=== PATIENT | male | born 1935 | race African-American/Black ===

== ENCOUNTER 2019-01-23 08:37 | Emergency (ER) | payer OTHER ==
--- OUTSIDE RECORDS SUMMARY | 2019-01-23 08:40 | XMS REPORT | Clinical Summary ---
:1935 Author Organization [facility] [employer] Address [address] [place] [address] Care Team Providers Name Role Phone Celena Marcson Primary Care Provider Allergies Active Allergy Reactions Severity Noted Date Comments Sulfamethoxazole-Trimethoprim 04/13/2017 Clopidogrel 04/13/2017 Sulfa (Sulfonamide Antibiotics) 04/13/2017 Medications Medication Sig Dispensed Refills Start Date End Date Status tamsulosin (FLOMAX) Take 0.4 mg by 0 Active 0.4 mg mouth daily. capsule,extended release 24hr allopurinol (ZYLOPRIM) Take 100 mg by 0 Active 100 MG tablet mouth daily. atorvastatin (LIPITOR) Take 40 mg by 0 Active 40 MG tablet mouth daily. losartan (COZAAR) 100 Take 100 mg by 0 Active MG tablet mouth daily. warfarin (COUMADIN) 5 Take 1 tablet 30 tablet 0 04/27/2017 04/27/2018 MG tablet (5mg) by mouth daily for 30 days. Active Problems Problem Noted Date Acute deep vein thrombosis (DVT) of both lower extremities 04/13/2017 Social History Tobacco Use Types Packs/Day Years Used Date Never Smoker Alcohol Use Drinks/Week oz/Week Comments No Sex Assigned at Date Recorded Not on file Job Start Date Occupation Industry Not on file Not on file Not on file Travel History Travel Start Travel End No recent travel history available. Last Filed Vital Signs Not on file Plan of Treatment Health Maintenance Due Date Last Done Comments SHINGLES VACCINES (#1) 1985 65+ PNEUMOCOCCAL VACCINE (1 of 2 - PCV13) 2000 INFLUENZA VACCINE 12/08/2018 Implants Implanted Type Area Iron Miner Blasting Device Shelf Model / Identifier Expiration Serial / Date Lot Catheter Stitcher Hand 8fr 75x4cm 16mm Alsen - [id number] Surgical N/A: BARD PERIPHERAL 07/07/2019 [id number] / Implanted: 04/22/2017 at [facility] (Quantity not on file) Implants; N/A VASCULAR / Expanders; [id number] Extenders; Surgical Wires Catheter Stitcher Hand 6.5fr 75x4cm 14mm Alsen - [id number] Surgical N/A: [facility] 06/06/2019 [id number] / Implanted: 04/22/2017 at [facility] (Quantity not on file) Implants; N/A VASCULAR / Expanders; [id number] Extenders; Surgical Wires Stent Endprths Trchobrncl Walstnt [id number] W/ Cath 75cm - [id number] Surgical N /A: [facility] 02/02/2019 [id number] / Implanted: 04/22/2017 at [facility] (Quantity not on file) Stents N/A INTERVENTION / VASCULAR RONALD [id number] Stent Endprths Trchobrncl Walstnt [id number] W/ Cath 75cm - [id number] Surgical N /A: [facility] 02/02/2019 [id number] / Implanted: 04/22/2017 at [facility] (Quantity not on file) Stents N/A INTERVENTION / VASCULAR RONALD [id number] Stent Endprths Trchobrncl Walstnt [id number] Metal - [id number] Surgical N/A: [facility] 01/27/2019 [id number] / Implanted: 04/22/2017 at [facility] (Quantity not on file) Stents N/A INTERVENTION / VASCULAR RONALD [id number] Stent Endprths Trchobrncl Walstnt [id number] Metal - [id number] Surgical N/A: [facility] 12/29/2018 [id number] / Implanted: 04/22/2017 at [facility] (Quantity not on file) Stents N/A INTERVENTION / VASCULAR RONALD [id number] Stent Endprths Trchobrncl Walstnt [id number] Metal - [id number] Surgical N/A: [place] 03/02/2019 [id number] / Implanted: 04/22/2017 at [facility] (Quantity not on file) Stents N/A [employer] NASIM / [id number] Results Not on fileafter 01/22/2018 Advance Directives For more information, please contact: [phone] Type Date Recorded Patient Mine Manager Explanation Advance Directives, Living Will and Medical Power of Director Chemistry
--- OUTSIDE RECORDS SUMMARY | 2019-01-23 09:57 | XMS REPORT | CCD ---
:1935 Author Organization [facility] Team Providers Name Role Phone Yancy Anders Jordyjarredkemi Consulting Provider [phone] [employer], Login Consulting Provider Unavailable Kassy Talamantes Consulting Provider Unavailable Natalia Yu Consulting Provider Joann Orozco Consulting Provider Unavailable Liza Landers Consulting Provider Conor Roy Referring Provider Evie Johns Consulting Provider Ismael Kat Consulting Provider Virgen Gutiérrez Consulting Provider [phone] Allergies, Adverse Reactions, Alerts Substance Reaction Status Bactrim hives?? Active NKDA ?? Active Problem List Condition Effective Dates Status Chest pain ?? Active Dizziness ?? Active Nausea ?? Active
--- OUTSIDE RECORDS SUMMARY | 2019-01-23 09:57 | XMS REPORT | CCD ---
:1935 Author Organization [facility] Team Providers Name Role Phone BriggsFlori tam Consulting Provider Unavailable ANCELMO Waite Consulting Provider Unavailable MICROBIOLOGY, ANGPROCESSSERVER Consulting Provider Unavailable Mary Kay Dennison Consulting Provider Unavailable Kimberly Magallanes Consulting Provider Lianna Abarca Consulting Provider Unavailable Coco Roque Consulting Provider Jesica Woods Consulting Provider Unavailable Haile Avilez Consulting Provider Unavailable Coco Pires Consulting Provider Unavailable Priscila Catalan Consulting Provider Unavailable Elton Beckett Consulting Provider [phone] Mariposa Graves Consulting Provider [phone] Saima Friedman Consulting Provider [phone] Carola Tejada Consulting Provider Unavailable Vidya Aguilar Consulting Provider Unavailable Kavita Morrison Consulting Provider Tiana Adam Consulting Provider Unavailable Juanita Reed Consulting Provider [phone] Coby Patel Consulting Provider Unavailable Hany Clark Consulting Provider ChartServer, Login Consulting Provider Unavailable Ana Camacho Consulting Provider Unavailable Abiodun Pickard Consulting Provider Unavailable Annette Katz Consulting Provider Monika Espinoza Consulting Provider Unavailable Manuela Steiner Consulting Provider Unavailable Jennifer Turcios Consulting Provider Unavailable Kassy Talamantes Consulting Provider Unavailable Diamond Gutierrez Consulting Provider Unavailable Sahara Albert Consulting Provider [phone] Joann Orozco Consulting Provider Unavailable Yamile Arellano Consulting Provider [phone] Liza Landers Consulting Provider Janet Lehman Consulting Provider Unavailable Kenneth Cox Consulting Provider Unavailable Evie Johns Consulting Provider Juanita Woods Consulting Provider Unavailable Annita Cotto Consulting Provider Miranda Keith Consulting Provider Unavailable Ismael Kat Consulting Provider SYSTEM, SYSTEM Consulting Provider Unavailable Josefina Wallace Olaitan Consulting Provider [phone] Bob Campos S Consulting Provider iDamond Ornelas Consulting Provider Unavailable Mindy Dawson Consulting Provider Unavailable Virgen Gutiérrez Consulting Provider [phone] Marilee Mar Consulting Provider Unavailable Boy Greenberg Consulting Provider Unavailable Julius Rider Consulting Provider Shahana Sorto Consulting Provider [phone] Abdon Forbes Consulting Provider Tamar Moscoso Consulting Provider [phone] Sophia Jones Consulting Provider XER Chandu Valdivia Consulting Provider [phone] Justyn Salcido Consulting Provider Unavailable Beka Tariq Consulting Provider Janine Kumari Consulting Provider [phone] Denise Handy Consulting Provider [id number] Danielle Rider Consulting Provider Unavailable Coco Dudley Consulting Provider Arnaldo Morrison Consulting Provider Vicky Mcmahon Consulting Provider Unavailable Leisa Veras Consulting Provider [phone] Lauryn Cox Consulting Provider [phone] Monie Rider Consulting Provider Unavailable Negra Cotto Consulting Provider Basia Giles Consulting Provider Unavailable Emili Gan Consulting Provider Vidya Ferreira Consulting Provider Hillary Andrea Consulting Provider Mario Mendez Consulting Provider Lyndsay Banks Consulting Provider [phone] Allergies, Adverse Reactions, Alerts Substance Reaction Status Bactrim hives?? Active NKDA ?? Active Problem List Condition Effective Dates Status Chest pain ?? Active Dizziness ?? Active Nausea ?? Active Medications Medication Instructions Start Date End Date Status aspirin 81 mg tablet, 1 tab, PO, Daily, 0 tab, 02/15/2011 ?? Ordered enteric coated Substitution Allowed, ECTAB Saline Flush 0.9% 5 ml, Route: IVP, Drug 02/14/2011 02/14/2011 Discontinued Form: INJ, PRN, PRN Line Flush, Start date: 02/14/11 18:21:00, Duration: 30 day, Stop date: 03/16/11 17:20:00 glyBURIDE 5 mg oral tablet 1 tab, PO, Daily, 30 02/15/2011 ?? Ordered tab, Substitution Allowed, TAB doxycycline hyclate 100 mg 1 cap, PO, BID, cap, 02/15/2011 02/17/2011 Discontinued oral capsule Substitution Allowed predniSONE 50 mg oral 1 tab, PO, BID, tab, 02/15/2011 02/25/2011 Ordered tablet Substitution Allowed, TAB gabapentin 600 mg oral 1 tab, PO, TID, 270 tab, 02/15/2011 ?? Ordered tablet Substitution Allowed Klor-Con M10 oral tablet, 1 tab, PO, Daily, tab, 02/15/2011 ?? Ordered extended release Substitution Allowed, ERTAB lisinopril 10 mg oral 1 tab, PO, BID, 30 tab, 02/15/2011 ?? Ordered tablet Substitution Allowed, TAB Lasix 40 mg oral tablet 1 tab, PO, Daily, 30 02/15/2011 ?? Ordered tab, Substitution Allowed, TAB Coreg 12.5 mg oral tablet 1 tab, PO, BID, 60 tab, 02/15/2011 ?? Ordered Substitution Allowed, TAB Zofran ODT 4 mg oral 4 mg, 1 tab, PO, Q8H, 02/15/2011 ?? Ordered tablet, disintegrating PRN, as needed for nausea/vomiting, Substitution Allowed, TAB Xanax 0.5 mg oral tablet 1 tab, PO, Daily, PRN, 02/15/2011 ?? Ordered 30 tab, Anxiety, Substitution Allowed Visipaque 48,000 mg, 150 mL, 02/16/2011 02/16/2011 Completed Route: IV, Drug form: INJ, ONCE, Start date: 02/16/11 9:05:00, Stop date: 02/16/11 9:05:00 predniSONE 50 mg, Route: PO, Drug 02/15/2011 02/15/2011 Canceled form: TAB, BID, Start date: 02/15/11 17:00:00, Duration: 30 day, Stop date: 03/17/11 9:00:00 potassium chloride 10 mEq, 1 tab, Route: 02/16/2011 02/17/2011 Discontinued PO, Drug form: ERTAB, Daily, Start date: 02/16/11 9:00:00, Duration: 30 day, Stop date: 03/17/11 9:00:00 glyBURIDE 5 mg, 1 tab, Route: PO, 02/16/2011 02/17/2011 Discontinued Drug form: TAB, Daily, Start date: 02/16/11 9:00:00, Duration: 30 day, Stop date: 03/17/11 9:00:00 gabapentin 600 mg oral 600 mg, 2 cap, Route: 02/15/2011 02/17/2011 Discontinued tablet PO, Drug form: CAP, TID, Start date: 02/15/11 13:00:00, Duration: 30 day, Stop date: 03/17/11 9:00:00 Lasix 40 mg oral tablet 40 mg, 2 tab, Route: PO, 02/16/2011 02/17/2011 Discontinued Drug form: TAB, Daily, Start date: 02/16/11 9:00:00, Duration: 30 day, Stop date: 03/17/11 9:00:00 aspirin 325 mg tablet 325 mg, 1 tab, Route: 02/14/2011 02/14/2011 Completed PO, Drug form: TAB, ONCE, Priority: STAT, Start date: 02/14/11 20:28:00, Stop date: 02/14/11 20:28:00 Avelox 400 mg oral tablet 400 mg, 1 tab, Route: 02/17/2011 02/17/2011 Discontinued PO, Drug form: TAB, [id number], Priority: NOW, Start date: 02/17/11 10:36:00, Duration: 30 day, Stop date: 03/18/11 10:36:00 morphine Sulfate 2 mg, 0.4 mL, Route: 02/15/2011 02/17/2011 Discontinued IVP, Drug form: INJ, Q3H, PRN Pain, Start date: 02/15/11 23:21:00, Duration: 30 day, Stop date: 03/17/11 23:20:00 hydrALAZINE 10 mg, 0.5 mL, Route: 02/16/2011 02/17/2011 Discontinued IVP, Drug form: INJ, Q4H, PRN Elevated BP, Start date: 02/16/11 11:43:00, Duration: 30 day, Stop date: 03/18/11 11:42:00 Lopressor 5 mg, 5 mL, Route: IVP, 02/16/2011 02/17/2011 Discontinued Drug form: INJ, Q6H, PRN Elevated BP, Start date: 02/16/11 11:43:00, Duration: 30 day, Stop date: 03/18/11 11:42:00 Vicodin 5/500 oral tablet 1 tab, Route: PO, Drug 02/14/2011 02/17/2011 Discontinued Form: TAB, Q4H, PRN Pain, Start date: 02/14/11 22:13:00, Duration: 30 day, Stop date: 03/16/11 22:12:00 Neurontin 600 mg, 2 cap, Route: 02/14/2011 02/15/2011 Discontinued PO, Drug form: CAP, Q8H, Start date: 02/14/11 23:40:00, Duration: 30 day, Stop date: 03/16/11 16:00:00 pantoprazole 40 mg, Route: IVP, Drug 02/15/2011 02/16/2011 Discontinued form: INJ, Daily, Start date: 02/15/11 9:00:00, Duration: 30 day, Stop date: 03/16/11 9:00:00 acetaminophen 650 mg, 2 tab, Route: 02/14/2011 02/17/2011 Discontinued PO, Drug form: TAB, Q4H, PRN Pain/Fever, Start date: 02/14/11 22:12:00, Duration: 30 day, Stop date: 03/16/11 22:11:00 guaifenesin 100 mg, 5 mL, Route: PO, 02/14/2011 02/17/2011 Discontinued Drug form: LIQ, Q4H, PRN Cough, Start date: 02/14/11 22:12:00, Duration: 30 day, Stop date: 03/16/11 22:11:00 ceftriaxone 1 gm, Route: IVPB, 02/14/2011 02/15/2011 Discontinued [id number], Start date: 02/14/11 23:00:00, Duration: 30 day, Stop date: 03/15/11 23:00:00 azithromycin 500 mg, Route: IVPB, 02/14/2011 02/16/2011 Discontinued [id number], Start date: 02/14/11 23:00:00, Duration: 30 day, Stop date: 03/15/11 23:00:00 Saline Flush 0.9% 5 ml, Route: IVP, Drug 02/14/2011 02/17/2011 Discontinued Form: INJ, PRN, PRN Line Flush, Start date: 02/14/11 21:35:00, Duration: 30 day, Stop date: 03/16/11 20:34:00 Saline Flush 0.9% 5 ml, Route: IVP, Drug 02/15/2011 02/17/2011 Discontinued Form: INJ, Q12H, Start date: 02/15/11 9:00:00, Duration: 30 day, Stop date: 03/16/11 21:00:00 nitroglycerin SL Tab 0.4 mg, 1 tab, Route: 02/14/2011 02/17/2011 Discontinued SL, Drug form: TAB, Q5Min, PRN Chest Pain, Start date: 02/14/11 21:35:00, Duration: 3 doses or times, Stop date: Limited # of times aspirin 81 mg tablet, 81 mg, 1 tab, Route: PO, 02/15/2011 02/16/2011 Discontinued enteric coated Drug form: ECTAB, Daily, Start date: 02/15/11 9:00:00, Duration: 30 day, Stop date: 03/16/11 9:00:00 Insulin (Novolog) Sliding 10 unit, 0.1 mL, Route: 02/14/2011 02/17/2011 Discontinued Scale - Low SUB-Q, Drug form: SOLN, Sliding Scale, PRN Blood Glucose Results, Start date: 02/14/11 22:08:00, Duration: 30 day, Stop date: 03/16/11 21:07:00 glucagon 1 mg, Route: IM, Drug 02/14/2011 02/17/2011 Discontinued form: PDR/INJ, PRN, PRN Blood Glucose Results, Start date: 02/14/11 22:08:00, Duration: 30 day, Stop date: 03/16/11 21:07:00 Dextrose 50% Syringe 25 gm, 50 ml, Route: 02/14/2011 02/17/2011 Discontinued IVP, Drug Form: INJ, PRN, PRN Blood Glucose Results, Start date: 02/14/11 22:08:00, Duration: 30 day, Stop date: 03/16/11 21:07:00 Insulin (Novolog) Sliding 3 unit, 0.03 mL, Route: 02/14/2011 02/17/2011 Discontinued Scale - Low SUB-Q, Drug form: SOLN, Sliding Scale, PRN Blood Glucose Results, Start date: 02/14/11 22:08:00, Duration: 30 day, Stop date: 03/16/11 21:07:00 Insulin (Novolog) Sliding 4 unit, 0.04 mL, Route: 02/14/2011 02/17/2011 Discontinued Scale - Low SUB-Q, Drug form: SOLN, Sliding Scale, PRN Blood Glucose Results, Start date: 02/14/11 22:08:00, Duration: 30 day, Stop date: 03/16/11 21:07:00 Insulin (Novolog) Sliding 5 unit, 0.05 mL, Route: 02/14/2011 02/17/2011 Discontinued Scale - Low SUB-Q, Drug form: SOLN, Sliding Scale, PRN Blood Glucose Results, Start date: 02/14/11 22:08:00, Duration: 30 day, Stop date: 03/16/11 21:07:00 Insulin (Novolog) Sliding 6 unit, 0.06 mL, Route: 02/14/2011 02/17/2011 Discontinued Scale - Low SUB-Q, Drug form: SOLN, Sliding Scale, PRN Blood Glucose Results, Start date: 02/14/11 22:08:00, Duration: 30 day, Stop date: 03/16/11 21:07:00 Insulin (Novolog) Sliding 8 unit, 0.08 mL, Route: 02/14/2011 02/17/2011 Discontinued Scale - Low SUB-Q, Drug form: SOLN, Sliding Scale, PRN Blood Glucose Results, Start date: 02/14/11 22:08:00, Duration: 30 day, Stop date: 03/16/11 21:07:00 Lovenox 40 mg, 0.4 mL, Route: 02/15/2011 02/17/2011 Discontinued SUB-Q, Drug form: INJ, Daily, Start date: 02/15/11 9:00:00, Duration: 30 day, Stop date: 03/16/11 9:00:00 aspirin 81 mg tablet, 81 mg, 1 tab, Route: PO, 02/15/2011 02/17/2011 Discontinued enteric coated Drug form: ECTAB, Daily, Start date: 02/15/11 9:00:00, Duration: 30 day, Stop date: 03/16/11 9:00:00 Avelox 400 mg oral tablet 400 mg, 1 tab, PO, 02/17/2011 02/24/2011 Ordered Daily, 7 tab, Substitution Allowed, TAB DuoNeb inhalation solution 3 ml, Route: INHALATION, 02/15/2011 02/17/2011 Discontinued Drug Form: SOLN, Q6H, Start date: 02/15/11 0:00:00, Duration: 30 day, Stop date: 03/16/11 18:00:00 predniSONE 40 mg, 2 tab, Route: PO, 02/15/2011 02/17/2011 Discontinued Drug form: TAB, Daily, Start date: 02/15/11 9:00:00, Stop date: 03/16/11 9:00:00 amLODipine 5 mg, 1 tab, Route: PO, 02/16/2011 02/17/2011 Discontinued Drug form: TAB, Daily, Priority: NOW, Start date: 02/16/11 21:04:00, Duration: 30 day, Stop date: 03/18/11 9:00:00 Neurontin 600 mg, 2 cap, Route: 02/14/2011 02/14/2011 Deleted PO, Drug form: CAP, Q8H, Priority: NOW, Start date: 02/14/11 22:06:00, Duration: 30 day, Stop date: 03/16/11 16:00:00 Zofran 4 mg, 1 tab, Route: PO, 02/14/2011 02/17/2011 Discontinued Drug form: TAB, Q8H, PRN Nausea, Start date: 02/14/11 22:05:00, Duration: 30 day, Stop date: 03/16/11 22:04:00 morphine Sulfate 4 mg, 0.8 mL, Route: IM, 02/16/2011 02/17/2011 Discontinued Drug form: INJ, Q6H, PRN Pain, Start date: 02/16/11 21:03:00, Duration: 30 day, Stop date: 03/18/11 21:02:00 lisinopril 10 mg, 2 tab, Route: PO, 02/15/2011 02/17/2011 Discontinued Drug form: TAB, BID, Start date: 02/15/11 9:00:00, Duration: 30 day, Stop date: 03/16/11 17:00:00 cefepime 1 gm, Route: IVPB, 02/15/2011 02/17/2011 Discontinued [id number], Start date: 02/15/11 11:00:00, Duration: 30 day, Stop date: 03/16/11 23:00:00 azithromycin 500 mg oral 500 mg, 2 tab, Route: 02/16/2011 02/17/2011 Discontinued tablet PO, Drug form: TAB, Daily, Start date: 02/16/11 23:00:00, Duration: 30 day, Stop date: 03/18/11 9:00:00 Xanax 0.5 mg oral tablet 0.5 mg, 1 tab, Route: 02/14/2011 02/17/2011 Discontinued PO, Drug form: TAB, Bedtime, Priority: NOW, Start date: 02/14/11 22:04:00, Duration: 30 day, Stop date: 03/16/11 21:00:00 Coreg 6.25 mg, 2 tab, Route: 02/14/2011 02/17/2011 Discontinued PO, Drug form: TAB, Q12H, Priority: NOW, Start date: 02/14/11 22:04:00, Stop date: 03/16/11 21:00:00 ondansetron 4 mg, 2 mL, Route: IVP, 02/14/2011 02/14/2011 Completed Drug form: INJ, ONCE, Priority: STAT, Start date: 02/14/11 19:31:00, Stop date: 02/14/11 19:31:00 morphine Sulfate 4 mg, 1 mL, Route: IVP, 02/14/2011 02/14/2011 Completed Drug form: INJ, ONCE, Priority: STAT, Start date: 02/14/11 19:30:00, Stop date: 02/14/11 19:30:00 Protonix 40 mg, 1 tab, Route: PO, 02/17/2011 02/17/2011 Discontinued Drug form: ECTAB, Before Breakfast, Start date: 02/17/11 7:30:00, Duration: 30 day, Stop date: 03/18/11 7:30:00 Vital Signs Most recent to oldest 1 2 3 [Reference Range]: Height 193.04 cm 193.04 cm ?? (02/14/2011 21:25:00) ?? (02/14/2011 18:10:00) ?? Temperature Oral 97.8 DegF 97.7 DegF 98.5 DegF [96.4-99.1 DegF] (02/17/2011 14:45:00) ?? (02/17/2011 10:30:00) ?? (2010 07:13:00) ?? Systolic Blood Pressure 151 mmHg 157 mmHg 123 mmHg [90-140 mmHg] *HI* *HI* (02/17/2011 07:13:00) ?? (02/17/2011 14:45:00) ?? (02/17/2011 10:30:00) ?? Diastolic Blood Pressure 75 mmHg 80 mmHg 72 mmHg [60-90 mmHg] (02/17/2011 14:45:00) ?? (02/17/2011 10:30:00) ?? (02/17/2011 07:13:00) ?? Respiratory Rate [14-20 16 BRMIN 16 BRMIN 16 BRMIN BRMIN] (02/17/2011 14:45:00) ?? (02/17/2011 10:30:00) ?? (02/17/2011 07:13: 00) ?? Peripheral Pulse Rate 55 bpm 60 bpm 60 bpm [60-100 bpm] *LOW* (02/17/2011 10:30:00) ?? (02/17/2011 07:13:00) ?? (02/17/2011 14:45:00) ?? Weight 133.778 kg 134.091 kg ?? (02/14/2011 21:25:00) ?? (02/14/2011 18:10:00) ?? Results BACTERIAL - SEROLOGY Most recent to oldest [Reference Range]: 1 2 3 U S pneumo Ag [>Negative] Negative ? (02/15/2011 11:30:00) ?? MICRO MISC - SEROLOGY Most recent to oldest [Reference Range]: 1 2 3 U Legion Ag [>Negative] Negative 1 ? (02/15/2011 11:30:00) ?? 1Interpretive Data: This kit tests for Legionella pneumophila Serogroup 1 Antigen.BEDSIDE GLUCOSE TESTING Most recent to oldest 1 2 3 [Reference Range]: Gluc POC Lifscn [65-110 137 mg/dL 2 141 mg/dL 3 155 mg/dL 4 mg/dL] *HI* *HI* *HI* (02/17/2011 10:42:00) ?? (02/17/2011 07:42:00) ?? (02/16/2011 20:39:00) ?? Comment1 Notify RN/MD Notify RN/MD Notify RN/MD *NA* *NA* *NA* (02/17/2011 10:42:00) ?? (02/16/2011 20:39:00) ?? (02/16/2011 10:54:00) ?? 2Interpretive Data: Upper Reportable Limit: 200 mg/dL.3Interpretive Data: Upper Reportable Limit: 200 mg/dL.4Interpretive Data: Upper Reportable Limit: 200 mg/dL.VIRAL - SEROLOGY Most recent to oldest [Reference Range]: 1 2 3 Influ A [>Negative] Negative ? (02/15/2011 00:20:00) ?? Influ B [>Negative] Negative 5 ? (02/15/2011 00:20:00) ?? 5Interpretive Data: Due to the low sensitivity of this test a negative result does not exclude influenza virus infection. A diagnosis of influenza should be considered based on a patient's clinical presentation and empiric antiviral treatment should be considered, if indicated. If more conclusive testing is desired, follow-up confirmatory testing with either viral culture or PCR is warranted.CHEMISTRY Most recent to oldest 1 2 3 [Reference Range]: Sodium Lvl [135-145 mEq/L] 138 mEq/L 141 mEq/L 140 mEq/L (02/17/2011 04:15:00) ?? (02/16/2011 04:15:00) ?? (02/14/2011 19:24:00) ?? Potassium Lvl [3.5-5.1 4.5 mEq/L 3.6 mEq/L 3.9 mEq/L mEq/L] (02/17/2011 04:15:00) ?? (02/16/2011 04:15:00) ?? (02/14/2011 19:24: 00) ?? Chloride Lvl [95-109 mEq/L] 100 mEq/L 106 mEq/L 103 mEq/L (02/17/2011 04:15:00) ?? (02/16/2011 04:15:00) ?? (02/14/2011 19:24:00) ?? CO2 [24-32 mEq/L] 30 mEq/L 27 mEq/L 27 mEq/L (02/17/2011 04:15:00) ?? (02/16/2011 04:15:00) ?? (02/14/2011 19:24:00) ?? AGAP [10.0-20.0 mEq/L] 12.5 mEq/L 11.6 mEq/L 13.9 mEq/L (02/17/2011 04:15:00) ?? (02/16/2011 04:15:00) ?? (02/14/2011 19:24:00) ?? Creatinine Lvl [0.5-1.4 1.2 mg/dL 1.2 mg/dL 1.4 mg/dL mg/dL] (02/17/2011 04:15:00) ?? (02/16/2011 04:15:00) ?? (02/14/2011 19:24: 00) ?? BUN [7-22 mg/dL] 16 mg/dL 19 mg/dL 21 mg/dL (02/17/2011 04:15:00) ?? (02/16/2011 04:15:00) ?? (02/14/2011 19:24:00) ?? B/C Ratio [6-25] 13 16 15 (02/17/2011 04:15:00) ?? (02/16/2011 04:15:00) ?? (02/14/2011 19:24:00) ?? Glucose Lvl 167 mg/dL 6 93 mg/dL 7 134 mg/dL 8 *NA* *NA* *NA* (02/17/2011 04:15:00) ?? (02/16/2011 04:15:00) ?? (02/14/2011 19:24:00) ?? Total Protein [6.4-8.4 7.0 g/dL 6.4 g/dL 7.5 g/dL g/dL] (02/17/2011 04:15:00) ?? (02/16/2011 04:15:00) ?? (02/14/2011 19:24:00 ) ?? Albumin Lvl [3.5-5.0 g/dL] 2.9 g/dL 2.7 g/dL 3.3 g/dL *LOW* *LOW* *LOW* (02/17/2011 04:15:00) ?? (02/16/2011 04:15:00) ?? (02/14/2011 19:24:00) ?? Globulin [2.0-4.0 g/dL] 4.1 g/dL 3.7 g/dL 4.2 g/dL *HI* (02/16/2011 04:15:00) ?? *HI* (02/17/2011 04:15:00) ?? (02/14/2011 19:24:00) ?? A/G Ratio [0.7-1.6] 0.7 0.7 0.8 (02/17/2011 04:15:00) ?? (02/16/2011 04:15:00) ?? (02/14/2011 19:24:00) ?? Calcium Lvl [8.5-10.5 8.5 mg/dL 8.1 mg/dL 8.4 mg/dL mg/dL] (02/17/2011 04:15:00) ?? *LOW* *LOW* (02/16/2011 04:15:00) ?? (02/14/2011 19:24:00) ?? Phosphorus [2.5-4.5 mg/dL] 3.2 mg/dL 2.8 mg/dL ?? (02/17/2011 04:15:00) ?? (02/16/2011 04:15:00) ?? Magnesium Lvl [1.8-2.4 2.3 mg/dL 2.3 mg/dL ?? mg/dL] (02/17/2011 04:15:00) ?? (02/16/2011 04:15:00) ?? ALT [0-65 U/L] 26 U/L 19 U/L 16 U/L (02/17/2011 04:15:00) ?? (02/16/2011 04:15:00) ?? (02/14/2011 19:24:00) ?? AST [0-37 U/L] 10 U/L 5 U/L 5 U/L (02/17/2011 04:15:00) ?? (02/16/2011 04:15:00) ?? (02/14/2011 19:24:00) ?? Alk Phos [39-136 U/L] 47 U/L 38 U/L 40 U/L (02/17/2011 04:15:00) ?? *LOW* (02/14/2011 19:24:00) ?? (02/16/2011 04:15:00) ?? Bili Total [0.2-1.3 mg/dL] 0.5 mg/dL 0.4 mg/dL 0.5 mg/dL (02/17/2011 04:15:00) ?? (02/16/2011 04:15:00) ?? (02/14/2011 19:24:00) ?? Total CK [12-191 U/L] 32 U/L 37 U/L 48 U/L (02/15/2011 06:10:00) ?? (02/15/2011 00:07:00) ?? (02/14/2011 19:24:00) ?? CK MB [0.5-3.6 ng/mL] 0.9 ng/mL ? (02/15/2011 06:10:00) ?? Troponin-I [0.00-0.40 0.15 ng/mL 0.15 ng/mL 0.14 ng/mL ng/mL] (02/15/2011 06:10:00) ?? (02/15/2011 00:07:00) ?? (02/14/2011 19:24: 00) ?? BNP [<<=100 pg/mL] 304 pg/mL 9 ? *HI* (02/14/2011 18:50:00) ?? HIPOLITO [8-52 U/L] 24 U/L ? (02/17/2011 14:22:00) ?? 6Interpretive Data: Reference Ranges : 0 - 7 days : 41 - 90 mg/dL7 days - 150 yrs : 70 - 99 mg/dL (fasting), based on the clinical recommendations of the [place] [employer].7Interpretive Data: Reference Ranges : 0 - 7 days : 41 - 90 mg/dL7 days - 150 yrs : 70 - 99 mg/dL (fasting), based on the clinical recommendations of the [place] [employer].8Interpretive Data : Reference Ranges : 0 - 7 days : 41 - 90 mg/dL7 days - 150 yrs : 70 - 99 mg/dL (fasting), based on the clinical recommendations of the [place] [employer].9Interpretive Data: Elevated results are in line with increasing severity of congestive heart failure. Minor elevations between 100 and 300 may be seen with Myocardial Ischemia, Sodium retaining drugs, and compensated/ treated heart failure.HEMATOLOGY Most recent to oldest 1 2 3 [Reference Range]: WBC [3.7-10.4 K/CMM] 8.9 K/CMM 9.6 K/CMM 10.0 K/CMM (02/17/2011 04:15:00) ?? (02/16/2011 04:15:00) ?? (02/15/2011 06:10:00) ?? RBC [4.70-6.10 M/CMM] 4.65 M/CMM 4.23 M/CMM 4.25 M/CMM *LOW* *LOW* *LOW* (02/17/2011 04:15:00) ?? (02/16/2011 04:15:00) ?? (02/15/2011 06:10:00) ?? Hgb [14.0-18.0 g/dL] 14.1 g/dL 13.0 g/dL 12.9 g/dL (02/17/2011 04:15:00) ?? *LOW* *LOW* (02/16/2011 04:15:00) ?? (02/15/2011 06:10:00) ?? Hct [42.0-54.0 %] 42.5 % 38.5 % 38.9 % (02/17/2011 04:15:00) ?? *LOW* *LOW* (02/16/2011 04:15:00) ?? (02/15/2011 06:10:00) ?? MCV [80.0-94.0 fL] 91.4 fL 91.1 fL 91.5 fL (02/17/2011 04:15:00) ?? (02/16/2011 04:15:00) ?? (02/15/2011 06:10:00) ?? MCH [27.0-31.0 pg] 30.4 pg 30.7 pg 30.4 pg (02/17/2011 04:15:00) ?? (02/16/2011 04:15:00) ?? (02/15/2011 06:10:00) ?? MCHC [32.0-36.0 g/dL] 33.3 g/dL 33.6 g/dL 33.2 g/dL (02/17/2011 04:15:00) ?? (02/16/2011 04:15:00) ?? (02/15/2011 06:10:00) ?? RDW [11.5-14.5 %] 15.1 % 14.6 % 14.9 % *HI* *HI* *HI* (02/17/2011 04:15:00) ?? (02/16/2011 04:15:00) ?? (02/15/2011 06:10:00) ?? Platelet [133-450 K/CMM] 174 K/CMM 132 K/CMM 104 K/CMM (02/17/2011 04:15:00) ?? *LOW* *LOW* (02/16/2011 04:15:00) ?? (02/15/2011 06:10:00) ?? MPV [7.4-10.4 fL] 9.7 fL 9.8 fL 10.0 fL (02/17/2011 04:15:00) ?? (02/16/2011 04:15:00) ?? (02/15/2011 06:10:00) ?? Segs [45.0-75.0 %] 88.2 % 75.9 % 71.1 % *HI* *HI* (02/15/2011 06:10:00) ?? (02/17/2011 04:15:00) ?? (02/16/2011 04:15:) ?? Lymphocytes [20.0-40.0 %] 9.5 % 18.7 % 20.3 % *LOW* *LOW* (02/15/2011 06:10:00) ?? (02/17/2011 04:15:00) ?? (02/16/2011 04:15:) ?? Monocytes [2.0-12.0 %] 1.8 % 4.3 % 7.8 % *LOW* (02/16/2011 04:15:00) ?? (02/15/2011 06:10:00) ?? (02/17/2011:15:) ?? Eosinophils [0.0-4.0 %] 0.3 % 0.9 % 0.3 % (02/17/2011 04:15:00) ?? (02/16/2011:15:00) ?? (02/15/2011 06:10:00) ?? Basophils [0.0-1.0 %] 0.2 % 0.2 % 0.5 % (02/17/2011 04:15:00) ?? (02/16/2011 04:15:00) ?? (02/15/2011 06:10:) ?? Segs-Bands # [1.5-8.1 7.8 K/CMM 7.3 K/CMM 7.1 K/CMM K/CMM] (02/17/2011 04:15:00) ?? (02/16/2011 04:15:00) ?? (02/15/2011 06:10: 00) ?? Lymphocytes # [1.0-5.5 0.8 K/CMM 1.8 K/CMM 2.0 K/CMM K/CMM] *LOW* (02/16/2011 04:15:00) ?? (02/15/2011 06:10:00) ?? (02/17/2011 04:15:00) ?? Monocytes # [0.0-0.8 0.2 K/CMM 0.4 K/CMM 0.8 K/CMM K/CMM] (02/17/2011 04:15:00) ?? (02/16/2011 04:15:00) ?? (02/15/2011 06:10: 00) ?? Eosinophils # [0.0-0.5 0.0 K/CMM 0.1 K/CMM 0.0 K/CMM K/CMM] (02/17/2011 04:15:00) ?? (02/16/2011 04:15:00) ?? (02/15/2011 06:10: 00) ?? Basophils # [0.0-0.2 0.0 K/CMM 0.0 K/CMM 0.0 K/CMM K/CMM] (02/17/2011 04:15:00) ?? (02/16/2011 04:15:00) ?? (02/15/2011 06:10: 00) ?? RBC Morph Normal ? (02/14/2011 18:50:00) ?? Plt Morph Normal ? (02/14/2011 18:50:00) ?? PT [12.0-14.7 seconds] 13.9 seconds 14.2 seconds ?? (02/16/2011 05:05:00) ?? (02/14/2011 18:50:00) ?? INR [0.85-1.17] 1.07 10 1.10 11 ?? (02/16/2011 05:05:00) ?? (02/14/2011 18:50:00) ?? D-Dimer 0.58 ug/mL FEU 12 ? *NA* (02/14/2011 18:50:00) ?? PTT [22.9-35.8 seconds] 28.8 seconds 13 22.7 seconds 14 ?? (02/16/2011 05:05:00) ?? *LOW* (02/14/2011 18:50:00) ?? 10Interpretive Data: RECOMMENDED RANGES FOR PROTIME INR: 2.0-3.0 for most medical and surgical thromboembolic states. 2.5-3.5 for artificial heart valves and recurrent embolism.INR SHOULD BE USED ONLY FOR PATIENTS ON STABLE ANTICOAGULANT THERAPY.11Interpretive Data: RECOMMENDED RANGES FOR PROTIME INR: 2.0-3.0 for most medical and surgical thromboembolic states. 2.5-3.5 for artificial heart valves and recurrent embolism.INR SHOULD BE USED ONLY FOR PATIENTS ON STABLE ANTICOAGULANT THERAPY.12Interpretive Data: In DIC, quantitative D-Dimer is generally greater than 0.66 ug/mL FEU. Values ofquantitative D-Dimer less than 0.40 ug/mL FEU have been reported to be associated with a low probability of deep vein thrombosis/pulmonary embolism. This test alone should not be used to rule out DVT/PE.13Interpretive Data: Heparin Therapeutic Range: 57 - 92 [id number] Data: Heparin Therapeutic Range: 57 - 92 SecondsIMMUNOLOGY Most recent to oldest [Reference Range]: 1 2 3 PAO [>Negative] Positive ? *ABN* (02/17/2011 14:22:00) ?? PAO Titer [>Negative] 1:40 ? *ABN* (02/17/2011 14:22:00) ?? PAO Interp Pattern appears Mixed Speckled and Nucleolar ? *NA* (02/17/2011 14:22:00) ?? Microbiology Reports PROCEDURE:Gram Stain STATUS: Auth (Verified) BODY SITE: ?? COLLECTED DATE/TIME: 02/14/2011 23:31:00 SOURCE: Sputum FREE TEXT SOURCE: ?? FINAL REPORTS Final ReportGram Stain Good Quality Specimen Less Than 25 Squamous Epithelial Cells/Lpf Occasional WBC's Seen Occasional Gram Positive Cocci Seen PROCEDURE:Culture: Respiratory w/Gram Stain STATUS: Auth (Verified) BODY SITE: ?? COLLECTED DATE/TIME: 02/14/2011 23:31:00 SOURCE: Sputum FREE TEXT SOURCE: ?? FINAL REPORTS Final ReportNormal Respiratory Elsa Isolated PRELIMINARY REPORTS Preliminary ReportHolding For Better Growth STAIN REPORTS Stain ReportGram Stain Performed By: [facility] PROCEDURE:Culture: Blood STATUS: In Progress BODY SITE: ?? COLLECTED DATE/TIME: 02/14/2011 23:15:00 SOURCE: Blood FREE TEXT SOURCE: ?? PRELIMINARY REPORTS Preliminary ReportNo Growth At 3 Days Preliminary ReportNo Growth At 1 Day Preliminary ReportNo Growth At 2 Days Preliminary ReportNo Growth; Holding PROCEDURE:Culture: Blood STATUS: In Progress BODY SITE: ?? COLLECTED DATE/TIME: 02/14/2011 23:10:00 SOURCE: Blood FREE TEXT SOURCE: ?? PRELIMINARY REPORTS Preliminary ReportNo Growth; Holding Preliminary ReportNo Growth At 3 Days Preliminary ReportNo Growth At 1 Day Preliminary ReportNo Growth At 2 Days
--- OUTSIDE RECORDS SUMMARY | 2019-01-23 09:58 | XMS REPORT | CCD ---
:1935 Author Organization [facility] Team Providers Name Role Phone Yury Anderson Consulting Provider Arnaldo Morrison Consulting Provider Allergies, Adverse Reactions, Alerts Substance Reaction Status Bactrim hives Active NKDA Canceled Problem List Condition Effective Dates Status AF - Atrial fibrillation Active Cardiac catheterization 04/28/2011 Active Chest pain Active Cough Active Dizziness Active Nausea Active Medications Medication Instructions Start Date End Date Status Lyrica 75 mg, 1 cap, Route: PO, 08/27/2011 08/28/2011 Discontinued Drug form: CAP, Daily, Start date: 08/27/11 9:00:00, Duration: 30 day, Stop date: 09/25/11 9:00:00 lisinopril 10 mg, 2 tab, Route: PO, 08/27/2011 08/26/2011 Canceled Drug form: TAB, BID, Start date: 08/27/11 9:00:00, Duration: 30 day, Stop date: 09/25/11 17:00:00 gabapentin 600 mg oral 600 mg, 2 cap, Route: PO, 08/27/2011 08/28/2011 Discontinued tablet Drug form: CAP, TID, Start date: 08/27/11 9:00:00, Duration: 30 day, Stop date: 09/25/11 17:00:00 Coreg 3.125 mg, 1 tab, Route: 08/27/2011 08/28/2011 Discontinued PO, Drug form: TAB, BID, Start date: 08/27/11 9:00:00, Stop date: 09/25/11 17:00:00 ALPRAZOLam 0.5 mg, 1 tab, Route: PO, 08/26/2011 08/28/2011 Discontinued Drug form: TAB, Daily, PRN as needed for anxiety, Start date: 08/26/11 19:36:00, Duration: 30 day, Stop date: 09/25/11 19:35:00 ipratropium 0.02% 0.5 mg, 2.5 mL, Route: 08/26/2011 08/28/2011 Discontinued inhalation solution NEB, Drug form: SOLN, Q4H, Start date: 08/26/11 20:00:00, Duration: 30 day, Stop date: 09/25/11 16:00:00 sotalol 80 mg oral tablet 80 mg, 1 tab, PO, BID, 08/26/2011 Ordered 180 tab, Substitution Allowed, TAB albuterol 0.083% 2.49 mg, 3 mL, Route: 08/26/2011 08/28/2011 Discontinued inhalation solution NEB, Drug form: SOLN, Q4H, Start date: 08/26/11 20:00:00, Duration: 30 day, Stop date: 09/25/11 16:00:00 Flagyl 500 mg, 100 mL, Route: 08/27/2011 08/28/2011 Discontinued IVPB, Drug form: INJ, Q8H, Start date: 08/27/11 16:00:00, Duration: 30 day, Stop date: 09/26/11 8:00:00 omeprazole 20 mg oral 20 mg, 1 cap, PO, Daily, 08/26/2011 Ordered delayed release capsule 30 cap, Substitution Allowed Cipro 400 mg, 200 mL, Route: 08/27/2011 08/28/2011 Discontinued IVPB, Drug form: INJ, Q12H, Start date: 08/27/11 21:00:00, Duration: 30 day, Stop date: 09/26/11 9:00:00 levofloxacin 750 mg, 150 mL, Route: 08/26/2011 08/27/2011 Discontinued IV, Drug form: SOLN, Q24H, Start date: 08/26/11 18:00:00, Duration: 30 day, Stop date: 09/24/11 18:00:00 cefepime 1 gm, Route: IV, Daily, 08/26/2011 08/27/2011 Discontinued Start date: 08/26/11 18:00:00, Duration: 30 day, Stop date: 09/24/11 18:00:00 Tylenol 650 mg, 2 tab, Route: PO, 08/26/2011 08/28/2011 Discontinued Drug form: TAB, Q4H, PRN Pain, Start date: 08/26/11 17:03:00, Duration: 30 day, Stop date: 09/25/11 17:02:00 morphine Sulfate 1 mg, 0.5 mL, Route: IV, 08/26/2011 08/28/2011 Discontinued Drug form: INJ, Q4H, PRN as needed for pain, Start date: 08/26/11 17:07:00, Duration: 30 day, Stop date: 09/25/11 17:06:00 metFORmin 500 mg oral 500 mg, 1 tab, PO, Daily, 08/26/2011 Ordered tablet 30 tab, Substitution Allowed Visipaque 32,000 mg, 100 mL, Route: 08/27/2011 08/27/2011 Ordered IVP, Drug form: INJ, ONCE, Start date: 08/27/11 8:33:00, Stop date: 08/27/11 8:33:00 Protonix 40 mg, 1 tab, Route: PO, 08/27/2011 08/28/2011 Discontinued Drug form: ECTAB, Daily, Start date: 08/27/11 9:00:00, Duration: 30 day, Stop date: 09/25/11 9:00:00 torsemide 10 mg oral 10 mg, 1 tab, PO, Daily, 08/26/2011 Ordered tablet 30 tab, Substitution Allowed, TAB insulin aspart 4 unit, 0.04 mL, Route: 08/26/2011 08/28/2011 Discontinued SUB-Q, Drug form: SOLN, Bedtime, PRN Blood Glucose Results, Start date: 08/26/11 19:38:00, Duration: 30 day, Stop date: 09/25/11 19:37:00 insulin aspart 3 unit, 0.03 mL, Route: 08/26/2011 08/28/2011 Discontinued SUB-Q, Drug form: SOLN, Bedtime, PRN Blood Glucose Results, Start date: 08/26/11 19:38:00, Duration: 30 day, Stop date: 09/25/11 19:37:00 insulin aspart 2 unit, 0.02 mL, Route: 08/26/2011 08/28/2011 Discontinued SUB-Q, Drug form: SOLN, Bedtime, PRN Blood Glucose Results, Start date: 08/26/11 19:38:00, Duration: 30 day, Stop date: 09/25/11 19:37:00 insulin aspart 1 unit, 0.01 mL, Route: 08/26/2011 08/28/2011 Discontinued SUB-Q, Drug form: SOLN, Bedtime, PRN Blood Glucose Results, Start date: 08/26/11 19:38:00, Duration: 30 day, Stop date: 09/25/11 19:37:00 Dextrose 50% Syringe 12.5 gm, 25 mL, Route: 08/26/2011 08/28/2011 Discontinued IVP, Drug Form: INJ, PRN, PRN Blood Glucose Results, Start date: 08/26/11 19:38:00, Duration: 30 day, Stop date: 09/25/11 19:37:00 glucagon 1 mg, Route: IM, Drug 08/26/2011 08/28/2011 Discontinued form: PDR/INJ, PRN, PRN Blood Glucose Results, Start date: 08/26/11 19:38:00, Duration: 30 day, Stop date: 09/25/11 19:37:00 Dextrose 50% Syringe 25 gm, 50 mL, Route: IVP, 08/26/2011 08/28/2011 Discontinued Drug Form: INJ, PRN, PRN Blood Glucose Results, Start date: 08/26/11 19:38:00, Duration: 30 day, Stop date: 09/25/11 19:37:00 Combivent inhalation 2 puff, INHALER, Daily, 08/26/2011 Ordered aerosol with adapter 14 gm, Substitution Allowed, Maintenance [place] 5/325 oral tablet 1 tab, PO, Q4-6H, PRN, 30 08/28/2011 Ordered tab, as needed for pain, Substitution Allowed, Maintenance BD Posiflush SF 15 mL, Route: IVP, Drug 08/26/2011 08/28/2011 Discontinued Form: INJ, PRN, PRN Line Flush, Start date: 08/26/11 17:34:00, Duration: 30 day, Stop date: 09/25/11 17:33:00 Jantoven 4 mg oral tablet 4 mg, 1 tab, PO, QPM, 30 08/26/2011 08/28/2011 Discontinued tab, Substitution Allowed, TAB Flagyl 500 mg oral tablet 500 mg, 1 tab, PO, Q8H, 08/28/2011 09/10/2011 Ordered 39 tab, Substitution Allowed, TAB Cipro 500 mg oral tablet 500 mg, 1 tab, PO, Q12H, 08/28/2011 09/10/2011 Ordered 26 tab, Substitution Allowed, TAB Lyrica 75 mg oral capsule 75 mg, 1 cap, PO, Daily, 08/26/2011 Ordered 90 cap, Substitution Allowed, CAP Protonix 40 mg oral 40 mg, 1 tab, PO, Daily, 08/28/2011 Ordered enteric coated tablet 30 tab, 1, 1, Substitution Allowed, ECTAB Coreg 3.125 mg oral 3.125 mg, 1 tab, PO, BID, 08/28/2011 Ordered tablet 60 tab, 1, 1, Substitution Allowed, TAB Restoril 15 mg, 1 cap, Route: PO, 08/26/2011 08/28/2011 Discontinued Drug form: CAP, Bedtime, PRN Sleep, Start date: 08/26/11 19:55:00, Duration: 30 day, Stop date: 09/25/11 19:54:00 Sodium Chloride 0.9% IV 1,000 mL, Rate: 70 ml/hr, 08/26/2011 08/28/2011 Discontinued 1,000 mL Infuse over: 14.3 hr, Route: IV, Dosing Weight 129.091 kg, Total Volume: 1,000, Start date: 08/26/11 16:59:00, Duration: 30 day, Stop date: 09/25/11 16:58:00 [place] 5/325 oral tablet 1 tab, Route: PO, Drug 08/26/2011 08/28/2011 Discontinued Form: TAB, Q4H, PRN Pain, Start date: 08/26/11 19:55:00, Duration: 30 day, Stop date: 09/25/11 19:54:00 sotalol 80 mg, 1 tab, Route: PO, 08/26/2011 08/28/2011 Discontinued Drug form: TAB, BID, Start date: 08/26/11 21:40:00, Duration: 30 day, Stop date: 09/25/11 17:00:00 Vital Signs Most recent to oldest 1 2 3 [Reference Range]: Height 193.04 cm (08/26/2011 16:30:00) Temperature Oral 97.7 DegF 97.9 DegF 98.1 DegF [96.4-99.1 DegF] (08/28/2011 07:00:00) (08/27/2011 23:00:00) (08/27/2011 15: 52:00) Systolic Blood Pressure 138 mmHg 117 mmHg 130 mmHg [90-140 mmHg] (08/28/2011 07:00:00) (08/27/2011 23:00:00) (08/27/2011 15:52: 00) Diastolic Blood Pressure 65 mmHg 55 mmHg 61 mmHg [60-90 mmHg] (08/28/2011 07:00:00) *LOW* (08/27/2011 15:52:00) (08/27/2011 23:00:00) Respiratory Rate [14-20 18 BRMIN 18 BRMIN 18 BRMIN BRMIN] (08/28/2011 07:00:00) (08/27/2011 23:00:00) (08/27/2011 15:52:00) Peripheral Pulse Rate 49 bpm 54 bpm 47 bpm [60-100 bpm] *LOW* *LOW* *LOW* (08/28/2011 07:00:00) (08/27/2011 23:00:00) (08/27/2011 15:52:00) Weight 129.091 kg (08/26/2011 16:30:00) Results BEDSIDE GLUCOSE TESTING Most recent to oldest 1 2 3 [Reference Range]: Gluc POC Lif[place]n [70-99 158 mg/dL 1 100 mg/dL 2 146 mg/dL 3 mg/dL] *HI* *HI* *HI* (08/28/2011 11:24:00) (08/28/2011 07:31:00) (08/27/2011 19:48:00) Comment1 Notify RN/MD Notify RN/MD Notify RN/MD *NA* *NA* *NA* (08/28/2011 11:24:00) (08/27/2011 19:48:00) (08/27/2011 16:26:00) 1Interpretive Data: Upper Reportable Limit: 200 mg/dL.2Interpretive Data: Upper Reportable Limit: 200 mg/dL.3Interpretive Data: Upper Reportable Limit: 200 mg/dL.CHEMISTRY Most recent to oldest 1 2 3 [Reference Range]: Sodium Lvl [135-145 mEq/L] 143 mEq/L 141 mEq/L 139 mEq/L (08/28/2011 04:26:00) (08/27/2011 04:20:00) (08/26/2011 20:25:00) Potassium Lvl [3.5-5.1 3.9 mEq/L 3.7 mEq/L 3.5 mEq/L mEq/L] (08/28/2011 04:26:00) (08/27/2011 04:20:00) (08/26/2011 20:25:00) Chloride Lvl [95-109 mEq/L] 105 mEq/L 103 mEq/L 102 mEq/L (08/28/2011 04:26:00) (08/27/2011 04:20:00) (08/26/2011 20:25:00) CO2 [24-32 mEq/L] 28 mEq/L 29 mEq/L 28 mEq/L (08/28/2011 04:26:00) (08/27/2011 04:20:00) (08/26/2011 20:25:00) AGAP [10.0-20.0 mEq/L] 13.9 mEq/L 12.7 mEq/L 12.5 mEq/L (08/28/2011 04:26:00) (08/27/2011 04:20:00) (08/26/2011 20:25:00) Creatinine Lvl [0.5-1.4 1.3 mg/dL 1.6 mg/dL 1.7 mg/dL mg/dL] (08/28/2011 04:26:00) *HI* *HI* (08/27/2011 04:20:00) (08/26/2011 20:25:00) BUN [7-22 mg/dL] 12 mg/dL 17 mg/dL 20 mg/dL (08/28/2011 04:26:00) (08/27/2011 04:20:00) (08/26/2011 20:25:00) B/C Ratio [6-25] 9 11 12 (08/28/2011 04:26:00) (08/27/2011 04:20:00) (08/26/2011 20:25:00) Glucose Lvl [70-99 mg/dL] 96 mg/dL 4 98 mg/dL 5 143 mg/dL 6 (08/28/2011 04:26:00) (08/27/2011 04:20:00) *HI* (08/26/2011 20:25:00) Total Protein [6.4-8.4 6.9 g/dL 6.9 g/dL 7.6 g/dL g/dL] (08/28/2011 04:26:00) (08/27/2011 04:20:00) (08/26/2011 20:25:00) Albumin Lvl [3.5-5.0 g/dL] 3.1 g/dL 3.1 g/dL 3.4 g/dL *LOW* *LOW* *LOW* (08/28/2011 04:26:00) (08/27/2011 04:20:00) (08/26/2011 20:25:00) Globulin [2.0-4.0 g/dL] 3.8 g/dL 3.8 g/dL 4.2 g/dL (08/28/2011 04:26:00) (08/27/2011 04:20:00) *HI* (08/26/2011 20:25:00) A/G Ratio [0.7-1.6] 0.8 0.8 0.8 (08/28/2011 04:26:00) (08/27/2011 04:20:00) (08/26/2011 20:25:00) Calcium Lvl [8.5-10.5 8.1 mg/dL 8.2 mg/dL 8.7 mg/dL mg/dL] *LOW* *LOW* (08/26/2011 20:25:00) (08/28/2011 04:26:00) (08/27/2011 04:20:00) Phosphorus [2.5-4.5 mg/dL] 3.1 mg/dL 2.5 mg/dL (08/27/2011 04:20:00) (08/26/2011 20:25:00) Magnesium Lvl [1.8-2.4 1.8 mg/dL 1.8 mg/dL 1.7 mg/dL mg/dL] (08/28/2011 04:26:00) (08/27/2011 04:20:00) *LOW* (08/26/2011 20:25:00) ALT [0-65 U/L] 12 U/L 13 U/L 14 U/L (08/28/2011 04:26:00) (08/27/2011 04:20:00) (08/26/2011 20:25:00) AST [0-37 U/L] 9 U/L 14 U/L 11 U/L (08/28/2011 04:26:00) (08/27/2011 04:20:00) (08/26/2011 20:25:00) Alk Phos [39-136 U/L] 36 U/L 37 U/L 38 U/L *LOW* *LOW* *LOW* (08/28/2011 04:26:00) (08/27/2011 04:20:00) (08/26/2011 20:25:00) Bili Total [0.2-1.3 mg/dL] 0.7 mg/dL 0.7 mg/dL 0.6 mg/dL (08/28/2011 04:26:00) (08/27/2011 04:20:00) (08/26/2011 20:25:00) CHD Risk [4.00-7.30] 3.93 *LOW* (08/27/2011 04:20:00) Chol [120-200 mg/dL] 110 mg/dL *LOW* (08/27/2011 04:20:00) Trig [0-200 mg/dL] 152 mg/dL (08/27/2011 04:20:00) HDL [>=35 mg/dL] 28 mg/dL *LOW* (08/27/2011 04:20:00) LDL [0-129 mg/dL] 52 mg/dL (08/27/2011 04:20:00) 4Interpretive Data: Adult reference range values reflect the clinical guidelinesof the [place] [employer].5Interpretive Data: Adult reference range values reflect the clinical guidelinesof the [place] [employer].6Interpretive Data: Adult reference range values reflect the clinical guidelinesof the [place] [employer].HEMATOLOGY Most recent to oldest 1 2 3 [Reference Range]: WBC [3.7-10.4 K/CMM] 6.0 K/CMM 6.4 K/CMM 7.3 K/CMM (08/28/2011 04:26:00) (08/27/2011 04:20:00) (08/26/2011 20:25:00) RBC [4.70-6.10 M/CMM] 3.81 M/CMM 3.80 M/CMM 3.95 M/CMM *LOW* *LOW* *LOW* (08/28/2011 04:26:00) (08/27/2011 04:20:00) (08/26/2011 20:25:00) Hgb [14.0-18.0 g/dL] 11.8 g/dL 11.5 g/dL 11.8 g/dL *LOW* *LOW* *LOW* (08/28/2011 04:26:00) (08/27/2011 14:57:00) (08/27/2011 04:20:00) Hct [42.0-54.0 %] 34.5 % 33.9 % 34.7 % *LOW* *LOW* *LOW* (08/28/2011 04:26:00) (08/27/2011 14:57:00) (08/27/2011 04:20:00) MCV [80.0-94.0 fL] 90.8 fL 91.3 fL 91.8 fL (08/28/2011 04:26:00) (08/27/2011 04:20:00) (08/26/2011 20:25:00) MCH [27.0-31.0 pg] 30.9 pg 31.1 pg 31.1 pg (08/28/2011 04:26:00) *HI* *HI* (08/27/2011 04:20:00) (08/26/2011 20:25:00) MCHC [32.0-36.0 g/dL] 34.1 g/dL 34.1 g/dL 33.8 g/dL (08/28/2011 04:26:00) (08/27/2011 04:20:00) (08/26/2011 20:25:00) RDW [11.5-14.5 %] 13.9 % 13.7 % 14.1 % (08/28/2011 04:26:00) (08/27/2011 04:20:00) (08/26/2011 20:25:00) Platelet [133-450 K/CMM] 60 K/CMM 55 K/CMM 59 K/CMM *LOW* *LOW* *LOW* (08/28/2011 04:26:00) (08/27/2011 04:20:00) (08/26/2011 20:25:00) MPV [7.4-10.4 fL] 9.0 fL 9.1 fL 9.3 fL (08/28/2011 04:26:00) (08/27/2011 04:20:00) (08/26/2011 20:25:00) Segs [45.0-75.0 %] 53.7 % 45.8 % 58.1 % (08/28/2011 04:26:00) (08/27/2011 04:20:00) (08/26/2011 20:25:00) Lymphocytes [20.0-40.0 %] 34.4 % 43.5 % 34.5 % (08/28/2011 04:26:00) *HI* (08/26/2011 20:25:00) (08/27/2011 04:20:00) Monocytes [2.0-12.0 %] 7.6 % 7.1 % 4.9 % (08/28/2011 04:26:00) (08/27/2011 04:20:00) (08/26/2011 20:25:00) Eosinophils [0.0-4.0 %] 3.9 % 3.3 % 2.0 % (08/28/2011 04:26:00) (08/27/2011 04:20:00) (08/26/2011 20:25:00) Basophils [0.0-1.0 %] 0.4 % 0.3 % 0.5 % (08/28/2011 04:26:00) (08/27/2011 04:20:00) (08/26/2011 20:25:00) Segs-Bands # [1.5-8.1 3.2 K/CMM 2.9 K/CMM 4.2 K/CMM K/CMM] (08/28/2011 04:26:00) (08/27/2011 04:20:00) (08/26/2011 20:25:00) Lymphocytes # [1.0-5.5 2.1 K/CMM 2.8 K/CMM 2.5 K/CMM K/CMM] (08/28/2011 04:26:00) (08/27/2011 04:20:00) (08/26/2011 20:25:00) Monocytes # [0.0-0.8 0.5 K/CMM 0.5 K/CMM 0.4 K/CMM K/CMM] (08/28/2011 04:26:00) (08/27/2011 04:20:00) (08/26/2011 20:25:00) Eosinophils # [0.0-0.5 0.2 K/CMM 0.2 K/CMM 0.1 K/CMM K/CMM] (08/28/2011 04:26:00) (08/27/2011 04:20:00) (08/26/2011 20:25:00) Basophils # [0.0-0.2 0.0 K/CMM 0.0 K/CMM 0.0 K/CMM K/CMM] (08/28/2011 04:26:00) (08/27/2011 04:20:00) (08/26/2011 20:25:00) RBC Morph Normal (08/26/2011 20:25:00) Anisocyte [None Seen] 1+ *ABN* (08/28/2011 04:26:00) Large Plt [None Seen] Slight Slight *ABN* *ABN* (08/28/2011 04:26:00) (08/26/2011 20:25:00) PT [12.0-14.7 seconds] 20.6 seconds 20.7 seconds 20.9 seconds *HI* *HI* *HI* (08/28/2011 04:26:00) (08/27/2011 04:20:00) (08/26/2011 20:25:00) INR [0.85-1.17] 1.78 7 1.79 8 1.82 9 *HI* *HI* *HI* (08/28/2011 04:26:00) (08/27/2011 04:20:00) (08/26/2011 20:25:00) PTT [22.9-35.8 seconds] 31.9 seconds 10 32.0 seconds 11 32.2 seconds 12 (08/28/2011 04:26:00) (08/27/2011 04:20:00) (08/26/2011 20:25:00) 7Interpretive Data: RECOMMENDED RANGES FOR PROTIME INR: 2.0-3.0 for most medical and surgical thromboembolic states. 2.5-3.5 for artificial heart valves and recurrent embolism.INR SHOULD BE USED ONLY FOR PATIENTS ON STABLE ANTICOAGULANT THERAPY.8Interpretive Data: RECOMMENDED RANGES FOR PROTIME INR: 2.0-3.0 for most medical and surgical thromboembolic states. 2.5-3.5 for artificial heart valves and recurrent embolism.INR SHOULD BE USED ONLY FOR PATIENTS ON STABLE ANTICOAGULANT THERAPY.9Interpretive Data: RECOMMENDED RANGES FOR PROTIME INR: 2.0-3.0 for most medical and surgical thromboembolic states. 2.5-3.5 for artificial heart valves and recurrent embolism.INR SHOULD BE USED ONLY FOR PATIENTS ON STABLE ANTICOAGULANT THERAPY.10Interpretive Data: Heparin Therapeutic Range: 57 - 92 [id number] Data: Heparin Therapeutic Range: 57 - 92 [id number] Data: Heparin Therapeutic Range: 57 - 92 Seconds
--- OUTSIDE RECORDS SUMMARY | 2019-01-23 09:58 | XMS REPORT | CCD ---
:1935 Author Organization [facility] Care Team Providers Name Role Phone Jennifer Farmerlesley Kelly Consulting Provider Allergies, Adverse Reactions, Alerts Substance Reaction Status Bactrim hives Active NKDA Canceled Problem List Condition Effective Dates Status AF - Atrial fibrillation Active Cardiac catheterization 04/28/2011 Active Chest pain Active Dizziness Active Nausea Active Medications Medication Instructions Start Date End Date Status Demadex 10 mg, 1 tab, Route: PO, 07/07/2011 07/07/2011 Discontinued Drug form: TAB, Daily, Start date: 07/07/11 9:00:00, Duration: 30 day, Stop date: 08/05/11 9:00:00 Glucophage 500 mg, 1 tab, Route: 07/07/2011 07/07/2011 Discontinued PO, Drug form: TAB, Daily, Start date: 07/07/11 9:00:00, Duration: 30 day, Stop date: 08/05/11 9:00:00 morphine Sulfate 4 mg, Route: IVP, ONCE, 07/05/2011 07/06/2011 Completed Priority: STAT, Start date: 07/05/11 22:23:00, Stop date: 07/05/11 22:23:00 Phenergan 25 mg, 1 tab, Route: PO, 07/06/2011 07/07/2011 Discontinued Drug form: TAB, Q12H, PRN Nausea, Start date: 07/06/11 13:30:00, Duration: 30 day, Stop date: 08/05/11 13:29:00 Coumadin 4.5 mg, 1.5 tab, Route: 07/06/2011 07/07/2011 Discontinued PO, Drug form: TAB, Q5PM, Start date: 07/06/11 17:00:00, Duration: 30 day, Stop date: 08/04/11 17:00:00 nitroglycerin 2% ointment 1 inch, Route: TOP, Drug 07/05/2011 07/05/2011 Completed Form: OINT, ONCE, STAT, Start date: 07/05/11 21:43:00, Stop date: 07/05/11 21:43:00 nitroglycerin 0.4 mg, 1 tab, Route: 07/05/2011 07/05/2011 Completed SL, Drug form: TAB, Q5Min, PRN Chest Pain, (Hold if SBP <=90 mmHg or if <=100mmHg with symptomatic dizziness), Start date: 07/05/11 21:43:00, Duration: 3 doses or times, Stop date: Limited # of times aspirin 81 mg tablet, 81 mg, 1 tab, Route: PO, 07/05/2011 07/05/2011 Completed chewable Drug form: CHEWTAB, ONCE, Priority: STAT, Start date: 07/05/11 21:43:00, Stop date: 07/05/11 21:43:00 Saline Flush 0.9% 5 ml, Route: IVP, Drug 07/05/2011 07/06/2011 Discontinued Form: INJ, PRN, PRN Line Flush, Start date: 07/05/11 21:43:00, Duration: 24 hr, Stop date: 07/06/11 21:42:00 Ackerman 3-6-9 1200 mg (own Ackerman 3-6-9 1200 mg (own 07/06/2011 07/07/2011 Discontinued med) med), 1,200 mg, Drug form: MISC, Route: PO, TID, 07/06/11 17:00:00, Duration: 30 day, Stop date: 08/05/11 13:00:00 Betapace 80 mg, 1 tab, Route: PO, 07/06/2011 07/07/2011 Discontinued Drug form: TAB, Q12H, Start date: 07/06/11 9:00:00, Duration: 30 day, Stop date: 08/04/11 21:00:00 Xanax 0.5 mg, 1 tab, Route: 07/06/2011 07/07/2011 Discontinued PO, Drug form: TAB, Bedtime, Start date: 07/06/11 21:00:00, Duration: 30 day, Stop date: 08/04/11 21:00:00 Protonix 40 mg, 1 tab, Route: PO, 07/06/2011 07/07/2011 Discontinued Drug form: ECTAB, Before Dinner, Start date: 07/06/11 16:30:00, Duration: 30 day, Stop date: 08/04/11 16:30:00 DiaBeta 2.5 mg, 1 tab, Route: 07/06/2011 07/07/2011 Discontinued PO, Drug form: TAB, TID, Start date: 07/06/11 9:00:00, Duration: 30 day, Stop date: 08/04/11 17:00:00 K-Dur 10 10 mEq, 1 tab, Route: 07/06/2011 07/07/2011 Discontinued PO, Drug form: ERTAB, Daily, Start date: 07/06/11 9:00:00, Duration: 30 day, Stop date: 08/04/11 9:00:00 Zaroxolyn 5 mg, 2 tab, Route: PO, 07/06/2011 07/06/2011 Discontinued Drug form: TAB, Daily, Start date: 07/06/11 9:00:00, Duration: 30 day, Stop date: 08/04/11 9:00:00 Lipitor 10 mg, 1 tab, Route: PO, 07/06/2011 07/07/2011 Discontinued Drug form: TAB, Bedtime, Start date: 07/06/11 21:00:00, Duration: 30 day, Stop date: 08/04/11 21:00:00 Sodium Chloride 0.9% IV 250 mL, Route: IVPB, 07/06/2011 07/07/2011 Discontinued PRN, Line Flush, Start date: 07/06/11 2:53:00, Duration: 30 day, Stop date: 08/05/11 3:52:00 BD Normal Saline Flush 10 mL, Route: IVP, Drug 07/06/2011 07/07/2011 Discontinued Form: INJ, PRN, PRN Line Flush, Start date: 07/06/11 2:53:00, Duration: 30 day, Stop date: 08/05/11 3:52:00 Astramorph PF 4 mg, 4 mL, Route: IVP, 07/06/2011 07/07/2011 Discontinued Drug form: INJ, Q2H, PRN Pain Score 7-10, Start date: 07/06/11 4:45:00, Duration: 30 day, Stop date: 08/05/11 4:44:00 Astramorph PF 2 mg, 2 mL, Route: IV, 07/06/2011 07/07/2011 Discontinued Drug form: INJ, Q2H, PRN Pain Score 4-6, Start date: 07/06/11 4:45:00, Duration: 30 day, Stop date: 08/05/11 4:44:00 acetaminophen-hydrocodone 1 tab, Route: PO, Drug 07/06/2011 07/07/2011 Discontinued 325 mg-5 mg oral tablet Form: TAB, Q4H, PRN Pain Score 1-5, Start date: 07/06/11 4:44:00, Duration: 30 day, Stop date: 08/05/11 4:43:00 acetaminophen-hydrocodone 2 tab, Route: PO, Drug 07/06/2011 07/07/2011 Discontinued 325 mg-5 mg oral tablet Form: TAB, Q4H, PRN Pain Score 6-10, Start date: 07/06/11 4:44:00, Duration: 30 day, Stop date: 08/05/11 4:43:00 nitroglycerin 2% topical 1 inch, Route: TOP, Drug 07/06/2011 07/06/2011 Discontinued ointment form: OINT, TID, Start date: 07/06/11 6:00:00, Duration: 30 day, Stop date: 08/04/11 18:00:00 Prinivil 10 mg, 1 tab, Route: PO, 07/06/2011 07/07/2011 Discontinued Drug form: TAB, Daily, Start date: 07/06/11 9:00:00, Duration: 30 day, Stop date: 08/04/11 9:00:00 Niaspan ER 500 mg oral 500 mg, 1 tab, PO, BID, 07/05/2011 Ordered tablet, extended release 60 tab, Substitution Allowed warfarin 3 mg oral tablet 3 mg, 1 tab, PO, Daily, 07/05/2011 Ordered 30 tab, Substitution Allowed, TAB ALPRAZOLam 0.5 mg, PO, PRN, PRN, 07/05/2011 Ordered anxiety, Substitution Allowed glucagon 1 mg, Route: IV, Drug 07/06/2011 07/07/2011 Discontinued form: PDR/INJ, PRN, PRN Blood Glucose Results, Start date: 07/06/11 4:41:00, Duration: 30 day, Stop date: 08/05/11 5:40:00 Dextrose 50% in Water IV 50 mL, Route: IVP, PRN, 07/06/2011 07/07/2011 Discontinued Blood Glucose Results, Start date: 07/06/11 4:41:00, Duration: 30 day, Stop date: 08/05/11 5:40:00 Dextrose 50% in Water IV 25 mL, Route: IVP, PRN, 07/06/2011 07/07/2011 Discontinued Blood Glucose Results, Start date: 07/06/11 4:41:00, Duration: 30 day, Stop date: 08/05/11 5:40:00 NovoLog FlexPen 10 unit, 0.1 mL, Route: 07/06/2011 07/07/2011 Discontinued SUB-Q, Drug form: SOLN, Sliding Scale, PRN Blood Glucose Results, Start date: 07/06/11 4:41:00, Duration: 30 day, Stop date: 08/05/11 5:40:00 NovoLog FlexPen 6 unit, 0.06 mL, Route: 07/06/2011 07/07/2011 Discontinued SUB-Q, Drug form: SOLN, Sliding Scale, PRN Blood Glucose Results, Start date: 07/06/11 4:41:00, Duration: 30 day, Stop date: 08/05/11 5:40:00 NovoLog FlexPen 8 unit, 0.08 mL, Route: 07/06/2011 07/07/2011 Discontinued SUB-Q, Drug form: SOLN, Sliding Scale, PRN Blood Glucose Results, Start date: 07/06/11 4:41:00, Duration: 30 day, Stop date: 08/05/11 5:40:00 NovoLog FlexPen 4 unit, 0.04 mL, Route: 07/06/2011 07/07/2011 Discontinued SUB-Q, Drug form: SOLN, Sliding Scale, PRN Blood Glucose Results, Start date: 07/06/11 4:41:00, Duration: 30 day, Stop date: 08/05/11 5:40:00 NovoLog FlexPen 2 unit, 0.02 mL, Route: 07/06/2011 07/07/2011 Discontinued SUB-Q, Drug form: SOLN, Sliding Scale, PRN Blood Glucose Results, Start date: 07/06/11 4:41:00, Duration: 30 day, Stop date: 08/05/11 5:40:00 K-Dur 10 10 mEq, 1 tab, Route: 07/06/2011 07/06/2011 Completed PO, Drug form: ERTAB, ONCE, Start date: 07/06/11 14:44:00, Stop date: 07/06/11 14:44:00 lactulose 20 gm, 30 mL, Route: PO, 07/06/2011 07/07/2011 Discontinued Drug form: SYRP, Daily, PRN Constipation, Start date: 07/06/11 4:41:00, Duration: 30 day, Stop date: 08/05/11 4:40:00 promethazine 25 mg oral 25 mg, 1 tab, PO, Q12H, 07/05/2011 07/08/2011 Ordered tablet PRN, 15 tab, Nausea, Substitution Allowed Neurontin 600 mg, 2 cap, Route: 07/06/2011 07/07/2011 Discontinued PO, Drug form: CAP, TID, Start date: 07/06/11 13:32:00, Duration: 30 day, Stop date: 08/05/11 13:00:00 metolazone 5 mg oral 5 mg, 1 tab, PO, Daily, 07/05/2011 Ordered tablet 30 tab, Substitution Allowed, TAB niacin 500 mg oral tablet, 500 mg, 1 tab, Route: 07/06/2011 07/07/2011 Discontinued extended release PO, Drug form: ERTAB, Bedtime, Start date: 07/06/11 21:00:00, Duration: 30 day, Stop date: 08/04/11 21:00:00 Restoril 30 mg, 1 cap, Route: PO, 07/06/2011 07/07/2011 Discontinued Drug form: CAP, Bedtime, PRN Sleep, Start date: 07/06/11 4:41:00, Duration: 30 day, Stop date: 08/05/11 4:40:00 Tylenol 650 mg, 2 tab, Route: 07/06/2011 07/07/2011 Discontinued PO, Drug form: TAB, Q4H, PRN Pain/Fever, Start date: 07/06/11 4:40:00, Duration: 30 day, Stop date: 08/05/11 4:39:00 glyBURIDE 2.5 mg oral 2.5 mg, 1 tab, PO, TID, 07/05/2011 Ordered tablet 30 tab, Substitution Allowed, TAB Lasix 40 mg, 1 tab, Route: PO, 07/06/2011 07/07/2011 Discontinued Drug form: TAB, Daily, Start date: 07/06/11 13:31:00, Duration: 30 day, Stop date: 08/05/11 9:00:00 Vital Signs Most recent to oldest 1 2 3 [Reference Range]: Height 193.04 cm (07/06/2011 02:45:00) Current Weight 128.409 kg (07/07/2011 04:00:00) Temperature Oral 98.4 DegF 97.3 DegF 97.8 DegF [96.4-99.1 DegF] (07/07/2011 08:00:00) (07/07/2011 04:00:00) (07/07/2011 00: 00:00) Systolic Blood Pressure 120 mmHg 120 mmHg 120 mmHg [90-140 mmHg] (07/07/2011 08:00:00) (07/07/2011 08:00:00) (07/07/2011 04:00: 00) Diastolic Blood Pressure 55 mmHg 55 mmHg 55 mmHg [60-90 mmHg] *LOW* *LOW* *LOW* (07/07/2011 08:00:00) (07/07/2011 08:00:00) (07/07/2011 04:00:00) Respiratory Rate [14-20 18 BRMIN 20 BRMIN 18 BRMIN BRMIN] (07/07/2011 08:00:00) (07/07/2011 08:00:00) (07/07/2011 04:00:00) Peripheral Pulse Rate 55 bpm 78 bpm 49 bpm [60-100 bpm] *LOW* (07/07/2011 08:00:00) *LOW* (07/07/2011 08:00:00) (07/07/2011 04:00:00) Weight 129.900 kg 130.800 kg (07/06/2011 03:52:00) (07/06/2011 02:45:00) Results BEDSIDE GLUCOSE TESTING Most recent to oldest 1 2 3 [Reference Range]: Gluc POC Lifscn [65-110 105 mg/dL 1 109 mg/dL 2 86 mg/dL 3 mg/dL] (07/07/2011 07:41:00) (07/06/2011 20:20:00) (07/06/2011 16:22:00) Comment1 Notify RN/MD Notify RN/MD Notify RN/MD *NA* *NA* *NA* (07/07/2011 07:41:00) (07/06/2011 20:20:00) (07/06/2011 16:22:00) 1Interpretive Data: Upper Reportable Limit: 200 mg/dL.2Interpretive Data: Upper Reportable Limit: 200 mg/dL.3Interpretive Data: Upper Reportable Limit: 200 mg/dL.CHEMISTRY Most recent to oldest 1 2 3 [Reference Range]: Sodium Lvl [135-145 mEq/L] 139 mEq/L 141 mEq/L 139 mEq/L (07/07/2011 07:00:00) (07/06/2011 05:45:00) (07/05/2011 21:56:00) Potassium Lvl [3.5-5.1 4.6 mEq/L 4 3.5 mEq/L 3.8 mEq/L mEq/L] (07/07/2011 07:00:00) (07/06/2011 05:45:00) (07/05/2011 21:56:00) Chloride Lvl [95-109 mEq/L] 100 mEq/L 103 mEq/L 101 mEq/L (07/07/2011 07:00:00) (07/06/2011 05:45:00) (07/05/2011 21:56:00) CO2 [24-32 mEq/L] 27 mEq/L 28 mEq/L 33 mEq/L (07/07/2011 07:00:00) (07/06/2011 05:45:00) *HI* (07/05/2011 21:56:00) AGAP [10.0-20.0 mEq/L] 16.6 mEq/L 13.5 mEq/L 8.8 mEq/L (07/07/2011 07:00:00) (07/06/2011 05:45:00) *LOW* (07/05/2011 21:56:00) Creatinine Lvl [0.5-1.4 1.0 mg/dL 1.2 mg/dL 1.4 mg/dL mg/dL] (07/07/2011 07:00:00) (07/06/2011 05:45:00) (07/05/2011 21:56:00) BUN [7-22 mg/dL] 21 mg/dL 20 mg/dL 20 mg/dL (07/07/2011 07:00:00) (07/06/2011 05:45:00) (07/05/2011 21:56:00) B/C Ratio [6-25] 17 14 (07/06/2011 05:45:00) (07/05/2011 21:56:00) Glucose Lvl 100 mg/dL 5 149 mg/dL 6 107 mg/dL 7 *NA* *NA* *NA* (07/07/2011 07:00:00) (07/06/2011 05:45:00) (07/05/2011 21:56:00) Total Protein [6.4-8.4 7.3 g/dL 8.1 g/dL g/dL] (07/06/2011 05:45:00) (07/05/2011 21:56:00) Albumin Lvl [3.5-5.0 g/dL] 3.7 g/dL 3.7 g/dL (07/06/2011 05:45:00) (07/05/2011 21:56:00) Globulin [2.0-4.0 g/dL] 3.6 g/dL 4.4 g/dL (07/06/2011 05:45:00) *HI* (07/05/2011 21:56:00) A/G Ratio [0.7-1.6] 1.0 0.8 (07/06/2011 05:45:00) (07/05/2011 21:56:00) Calcium Lvl [8.5-10.5 9.0 mg/dL 8.8 mg/dL 8.9 mg/dL mg/dL] (07/07/2011 07:00:00) (07/06/2011 05:45:00) (07/05/2011 21:56:00) ALT [0-65 U/L] 16 U/L 18 U/L (07/06/2011 05:45:00) (07/05/2011:56:00) AST [0-37 U/L] 12 U/L 14 U/L (07/06/2011 05:45:00) (07/05/2011:56:00) Alk Phos [39-136 U/L] 51 U/L 54 U/L (07/06/2011 05:45:00) (07/05/2011:56:00) Bili Total [0.2-1.3 mg/dL] 0.4 mg/dL 0.4 mg/dL (07/06/2011 05:45:00) (07/05/2011:56:00) Total CK [12-191 U/L] 75 U/L 79 U/L (07/06/2011 05:45:00) (07/05/2011:56:00) CK MB [0.5-3.6 ng/mL] 0.7 ng/mL 0.5 ng/mL (07/06/2011 05:45:00) (07/05/2011:56:00) CK MB Index [0.0-2.5] 0.9 0.6 (07/06/2011 05:45:00) (07/05/2011:56:00) Troponin-I [0.00-0.40 0.19 ng/mL 0.18 ng/mL ng/mL] (07/06/2011 05:45:00) (07/05/2011:56:00) BNP [<=100 pg/mL] 125 pg/mL 8 *HI* (07/05/2011:56:00) CHD Risk [4.00-7.30] 2.64 *LOW* (07/06/2011 05:45:00) Chol [120-200 mg/dL] 103 mg/dL *LOW* (07/06/2011 05:45:00) Trig [0-200 mg/dL] 100 mg/dL (07/06/2011 05:45:00) HDL [>=35 mg/dL] 39 mg/dL (07/06/2011 05:45:00) LDL [0-129 mg/dL] 44 mg/dL (07/06/2011 05:45:00) Hgb A1C 6.2 % 9 *NA* (07/07/2011 07:00:00) TSH [0.360-3.740 uIU/mL] 2.680 uIU/mL (07/06/2011 05:45:00) 4Result Comment: Specimen Moderately Hemolyzed.5Interpretive Data: Reference Ranges : 0 - 7 days : 41 - 90 mg/dL7 days - 150 yrs : 70 - 99 mg/dL ( fasting), based on the clinical recommendations of the [employer].6Interpretive Data: Reference Ranges : 0 - 7 days : 41 - 90 mg/ dL7 days - 150 yrs : 70 - 99 mg/dL (fasting), based on the clinical recommendations of the [place] [employer].7Interpretive Data: Reference Ranges : 0 - 7 days : 41 - 90 mg/dL7 days - 150 yrs : 70 - 99 mg/ dL (fasting), based on the clinical recommendations of the [place] [employer].8Interpretive Data: Elevated results are in line with increasing severity of congestive heart failure. Minor elevations between 100 and 300 may be seen with Myocardial Ischemia, Sodium retaining drugs, and compensated/ treated heart failure.9Interpretive Data: HbA1C% eAG(mg/dL) Interpretation 6.0 126Very good control 6.5 140 Very good control 7.0 154 Good Control 7.5 169 Good Control 8.0 183 Marginal Control, take action to lower 8.5 197 Marginal Control, take action to lower 9.0 212 Poor Control, take action to lower 9.5 226 Poor Control, takeaction to lower10.0 240 Poor Control, take action to lowerHEMATOLOGY Most recent to oldest 1 2 3 [Reference Range]: WBC [3.7-10.4 K/CMM] 6.3 K/CMM 5.9 K/CMM 5.5 K/CMM (07/07/2011 07:00:00) (07/06/2011 05:45:00) (07/05/2011 21:56:00) RBC [4.70-6.10 M/CMM] 4.26 M/CMM 3.94 M/CMM 4.11 M/CMM *LOW* *LOW* *LOW* (07/07/2011 07:00:00) (07/06/2011 05:45:00) (07/05/2011:56:00) Hgb [14.0-18.0 g/dL] 13.2 g/dL 12.4 g/dL 12.6 g/dL *LOW* *LOW* *LOW* (07/07/2011 07:00:00) (07/06/2011 05:45:00) (07/05/2011 21:56:00) Hct [42.0-54.0 %] 39.9 % 36.7 % 37.2 % *LOW* *LOW* *LOW* (07/07/2011 07:00:00) (07/06/2011 05:45:00) (07/05/2011:56:00) MCV [80.0-94.0 fL] 93.7 fL 93.0 fL 90.5 fL (07/07/2011 07:00:00) (07/06/2011 05:45:00) (07/05/2011:56:00) MCH [27.0-31.0 pg] 31.0 pg 31.4 pg 30.8 pg (07/07/2011 07:00:00) *HI* (07/05/2011 21:56:00) (07/06/2011 05:45:00) MCHC [32.0-36.0 g/dL] 33.1 g/dL 33.8 g/dL 34.0 g/dL (07/07/2011 07:00:00) (07/06/2011 05:45:00) (07/05/2011 21:56:00) RDW [11.5-14.5 %] 14.4 % 14.1 % 14.1 % (07/07/2011 07:00:00) (07/06/2011 05:45:00) (07/05/2011 21:56:00) Platelet [133-450 K/CMM] 49 K/CMM 46 K/CMM 49 K/CMM *LOW* *LOW* *LOW* (07/07/2011 07:00:00) (07/06/2011 05:45:00) (07/05/2011 21:56:00) MPV [7.4-10.4 fL] 9.4 fL 9.7 fL 9.1 fL (07/07/2011 07:00:00) (07/06/2011 05:45:00) (07/05/2011 21:56:00) Segs [45.0-75.0 %] 54.6 % 48.0 % 36.0 % (07/07/2011 07:00:00) (07/06/2011 05:45:00) *LOW* (07/05/2011 21:56:00) Bands [0.0-11.0 %] 0.0 % 0.0 % (07/06/2011 05:45:00) (07/05/2011 21:56:00) Lymphocytes [20.0-40.0 %] 36.1 % 39.0 % 54.0 % (07/07/2011 07:00:00) (07/06/2011 05:45:00) *HI* (07/05/2011 21:56:00) Atypical Lymphs [<=0.0 %] 4.0 % 0.0 % *HI* (07/05/2011 21:56:00) (07/06/2011 05:45:00) Monocytes [2.0-12.0 %] 5.8 % 2.0 % 7.0 % (07/07/2011 07:00:00) (07/06/2011 05:45:00) (07/05/2011 21:56:00) Eosinophils [0.0-4.0 %] 3.1 % 5.0 % 2.0 % (07/07/2011 07:00:00) *HI* (07/05/2011 21:56:00) (07/06/2011 05:45:00) Basophils [0.0-1.0 %] 0.4 % 1.0 % (07/07/2011 07:00:00) (07/05/2011 21:56:00) Metamyelocytes [0.0-1.0 %] 1.0 % (07/06/2011 05:45:00) Myelocytes [<=0.0 %] 1.0 % *HI* (07/06/2011 05:45:00) Segs-Bands # [1.5-8.1 K/CMM] 3.4 K/CMM 2.8 K/CMM 2.0 K/CMM (07/07/2011 07:00:00) (07/06/2011 05:45:00) (07/05/2011 21:56:00) Lymphocytes # [1.0-5.5 2.3 K/CMM 2.5 K/CMM 3.0 K/CMM K/CMM] (07/07/2011 07:00:00) (07/06/2011 05:45:00) (07/05/2011 21:56:00) Monocytes # [0.0-0.8 K/CMM] 0.4 K/CMM 0.1 K/CMM 0.4 K/CMM (07/07/2011 07:00:00) (07/06/2011 05:45:00) (07/05/2011 21:56:00) Eosinophils # [0.0-0.5 0.2 K/CMM 0.3 K/CMM 0.1 K/CMM K/CMM] (07/07/2011 07:00:00) (07/06/2011 05:45:00) (07/05/2011 21:56:00) Basophils # [0.0-0.2 K/CMM] 0.0 K/CMM 0.1 K/CMM (07/07/2011 07:00:00) (07/05/2011 21:56:00) NRBC 2 /100WB *NA* (07/05/2011 21:56:00) Polychrom [None Seen] Slight Slight (07/07/2011 07:00:00) (07/06/2011 05:45:00) Target Cell [None Seen] Slight *ABN* (07/06/2011 05:45:00) Tear Cell [None Seen] Slight Slight *ABN* *ABN* (07/06/2011 05:45:00) (07/05/2011 21:56:00) Elliptocyte [None Seen] Slight Slight *ABN* *ABN* (07/07/2011 07:00:00) (07/06/2011 05:45:00) Plt Morph Normal (07/05/2011 21:56:00) Large Plt [None Seen] Slight Slight *ABN* *ABN* (07/07/2011 07:00:00) (07/06/2011 05:45:00) PT [12.0-14.7 seconds] 17.7 seconds *HI* (07/05/2011 21:56:00) INR [0.85-1.17] 1.46 10 *HI* (07/05/2011 21:56:00) PTT [22.9-35.8 seconds] 27.8 seconds 11 (07/05/2011 21:56:00) 10Interpretive Data: RECOMMENDED RANGES FOR PROTIME INR: 2.0-3.0 for most medical and surgical thromboembolic states. 2.5-3.5 for artificial heart valves and recurrent embolism.INR SHOULD BE USED ONLY FOR PATIENTS ON STABLE ANTICOAGULANT THERAPY.11Interpretive Data: Heparin Therapeutic Range: 57 - 92 Seconds
--- OUTSIDE RECORDS SUMMARY | 2019-01-23 09:58 | XMS REPORT | CCD ---
:1935 Author Organization [facility] Care Team Providers Name Role Phone Justin Yury Stiles Consulting Provider Allergies, Adverse Reactions, Alerts Substance Reaction Status Bactrim hives Active NKDA Canceled Problem List Condition Effective Dates Status AF - Atrial fibrillation Active Cardiac catheterization 04/28/2011 Active Chest pain Active Dizziness Active Nausea Active Medications Medication Instructions Start Date End Date Status Carafate 1 gm, 1 tab, Route: PO, 05/02/2011 05/05/2011 Discontinued Drug form: TAB, BID, Start date: 05/02/11 17:00:00, Duration: 30 day, Stop date: 06/01/11 9:00:00 Coumadin 10 mg, 1 tab, Route: PO, 05/03/2011 05/03/2011 Completed Drug form: TAB, ONCE, Start date: 05/03/11 17:00:00, Stop date: 05/03/11 17:00:00 Lovenox 80 mg, 0.8 mL, Route: 04/28/2011 04/30/2011 Discontinued SUB-Q, Drug form: INJ, [id number], Start date: 04/28/11 20:00:00, Duration: 30 day, Stop date: 05/28/11 8:00:00 Sodium Chloride 0.9% IV 250 mL, Route: IVPB, PRN, 04/29/2011 05/05/2011 Discontinued Line Flush, Start date: 04/29/11 13:14:00, Duration: 30 day, Stop date: 05/29/11 13:13:00 BD Normal Saline Flush 10 mL, Route: IVP, Drug 04/29/2011 05/05/2011 Discontinued Form: INJ, PRN, PRN Line Flush, Start date: 04/29/11 13:13:00, Duration: 30 day, Stop date: 05/29/11 13:12:00 diltiazem 100 mg + 100 mL, Rate: titrate, 04/28/2011 04/28/2011 Discontinued Sodium Chloride 0.9% IV Route: IV, Total Volume: 100 mL 100, Start date: 04/28/11 0:36:00, Duration: 30 day, Stop date: 05/28/11 0:35:00 Lovenox 40 mg, 0.4 mL, Route: 04/28/2011 04/28/2011 Discontinued SUB-Q, Drug form: INJ, [id number], Start date: 04/28/11 1:00:00, Duration: 30 day, Stop date: 05/27/11 13:00:00 Zofran 2 mg, 1 mL, Route: IVP, 04/29/2011 05/05/2011 Discontinued Drug form: INJ, Q8H, PRN Nausea, Start date: 04/29/11 14:35:00, Duration: 30 day, Stop date: 05/29/11 14:34:00 Coreg 6.25 mg, 1 tab, Route: PO, 04/28/2011 04/28/2011 Discontinued Drug form: TAB, Q12H, Start date: 04/28/11 9:00:00, Duration: 30 day, Stop date: 05/27/11 21:00:00 glucagon 1 mg, Route: IV, Drug 04/28/2011 04/29/2011 Discontinued form: PDR/INJ, PRN, PRN Blood Glucose Results, Start date: 04/28/11 0:35:00, Duration: 30 day, Stop date: 05/28/11 0:34:00 Dextrose 50% in Water IV Route: IVP, PRN, Blood 04/28/2011 04/29/2011 Discontinued Glucose Results, Start date: 04/28/11 0:35:00, Duration: 30 day, Stop date: 05/28/11 0:34:00 NovoLog FlexPen 10 unit, 0.1 mL, Route: 04/28/2011 04/29/2011 Discontinued SUB-Q, Drug form: SOLN, Sliding Scale, PRN Blood Glucose Results, Start date: 04/28/11 0:35:00, Duration: 30 day, Stop date: 05/28/11 0:34:00 NovoLog FlexPen 8 unit, 0.08 mL, Route: 04/28/2011 04/29/2011 Discontinued SUB-Q, Drug form: SOLN, Sliding Scale, PRN Blood Glucose Results, Start date: 04/28/11 0:35:00, Duration: 30 day, Stop date: 05/28/11 0:34:00 NovoLog FlexPen 5 unit, 0.05 mL, Route: 04/29/2011 05/05/2011 Discontinued SUB-Q, Drug form: SOLN, Sliding Scale, PRN Blood Glucose Results, Start date: 04/29/11 13:22:00, Duration: 30 day, Stop date: 05/29/11 13:21:00 NovoLog FlexPen 7 unit, 0.07 mL, Route: 04/28/2011 04/29/2011 Discontinued SUB-Q, Drug form: SOLN, Sliding Scale, PRN Blood Glucose Results, Start date: 04/28/11 0:35:00, Duration: 30 day, Stop date: 05/28/11 0:34:00 glucagon 1 mg, Route: IV, Drug 04/29/2011 05/05/2011 Discontinued form: PDR/INJ, PRN, PRN Blood Glucose Results, Start date: 04/29/11 13:22:00, Duration: 30 day, Stop date: 05/29/11 13:21:00 Dextrose 50% in Water IV 50 mL, Route: IVP, PRN, 04/29/2011 05/05/2011 Discontinued Blood Glucose Results, Start date: 04/29/11 13:22:00, Duration: 30 day, Stop date: 05/29/11 13:21:00 Dextrose 50% in Water IV 25 mL, Route: IVP, PRN, 04/29/2011 05/05/2011 Discontinued Blood Glucose Results, Start date: 04/29/11 13:22:00, Duration: 30 day, Stop date: 05/29/11 13:21:00 NovoLog FlexPen 4 unit, 0.04 mL, Route: 04/29/2011 05/05/2011 Discontinued SUB-Q, Drug form: SOLN, Sliding Scale, PRN Blood Glucose Results, Start date: 04/29/11 13:22:00, Duration: 30 day, Stop date: 05/29/11 13:21:00 NovoLog FlexPen 6 unit, 0.06 mL, Route: 04/28/2011 04/29/2011 Discontinued SUB-Q, Drug form: SOLN, Sliding Scale, PRN Blood Glucose Results, Start date: 04/28/11 0:35:00, Duration: 30 day, Stop date: 05/28/11 0:34:00 NovoLog FlexPen 3 unit, 0.03 mL, Route: 04/29/2011 05/05/2011 Discontinued SUB-Q, Drug form: SOLN, Sliding Scale, PRN Blood Glucose Results, Start date: 04/29/11 13:22:00, Duration: 30 day, Stop date: 05/29/11 13:21:00 NovoLog FlexPen 5 unit, 0.05 mL, Route: 04/28/2011 04/29/2011 Discontinued SUB-Q, Drug form: SOLN, Sliding Scale, PRN Blood Glucose Results, Start date: 04/28/11 0:35:00, Duration: 30 day, Stop date: 05/28/11 0:34:00 NovoLog FlexPen 1 unit, 0.01 mL, Route: 04/29/2011 05/05/2011 Discontinued SUB-Q, Drug form: SOLN, Sliding Scale, PRN Blood Glucose Results, Start date: 04/29/11 13:22:00, Duration: 30 day, Stop date: 05/29/11 13:21:00 NovoLog FlexPen 2 unit, 0.02 mL, Route: 04/29/2011 05/05/2011 Discontinued SUB-Q, Drug form: SOLN, Sliding Scale, PRN Blood Glucose Results, Start date: 04/29/11 13:22:00, Duration: 30 day, Stop date: 05/29/11 13:21:00 Coumadin 2.5 mg, 1 tab, Route: PO, 04/30/2011 04/30/2011 Completed Drug form: TAB, ONCE, Start date: 04/30/11 17:00:00, Stop date: 04/30/11 17:00:00 Coumadin 5 mg, 1 tab, Route: PO, 04/30/2011 04/30/2011 Completed Drug form: TAB, ONCE, Start date: 04/30/11 17:00:00, Stop date: 04/30/11 17:00:00 morphine Sulfate 2 mg, 0.4 mL, Route: IV, 04/28/2011 04/28/2011 Completed Drug form: INJ, ONCE, Start date: 04/28/11 4:44:00, Stop date: 04/28/11 4:44:00 Lovenox 80 mg, 0.8 mL, Route: 04/30/2011 05/05/2011 Discontinued SUB-Q, Drug form: INJ, [id number], Start date: 04/30/11 8:00:00, Duration: 30 day, Stop date: 05/29/11 20:00:00 Coumadin 10 mg, 1 tab, Route: PO, 05/05/2011 05/05/2011 Discontinued Drug form: TAB, ONCE, Start date: 05/05/11 17:00:00, Stop date: 05/05/11 17:00:00 Zaroxolyn 5 mg, 2 tab, Route: PO, 04/28/2011 04/29/2011 Discontinued Drug form: TAB, Daily, Start date: 04/28/11 9:00:00, Duration: 30 day, Stop date: 05/27/11 9:00:00 morphine Sulfate 2 mg, 0.4 mL, Route: IV, 04/28/2011 04/29/2011 Completed Drug form: INJ, ONCE, Start date: 04/28/11 7:31:00, Stop date: 04/28/11 7:31:00 Coumadin 10 mg, 1 tab, Route: PO, 05/01/2011 05/01/2011 Completed Drug form: TAB, ONCE, Start date: 05/01/11 17:00:00, Stop date: 05/01/11 17:00:00 Phenergan 25 mg, 1 tab, Route: PO, 04/28/2011 05/05/2011 Discontinued Drug form: TAB, Q6H, PRN Nausea, Start date: 04/28/11 2:13:00, Duration: 30 day, Stop date: 05/28/11 2:12:00 Prinivil 10 mg, 1 tab, Route: PO, 04/28/2011 05/05/2011 Discontinued Drug form: TAB, Q12H, Start date: 04/28/11 9:00:00, Duration: 30 day, Stop date: 05/27/11 21:00:00 Lasix 40 mg, 1 tab, Route: PO, 04/28/2011 05/05/2011 Discontinued Drug form: TAB, Daily, Start date: 04/28/11 9:00:00, Duration: 30 day, Stop date: 05/27/11 9:00:00 Protonix 40 mg, 1 tab, Route: PO, 04/28/2011 05/02/2011 Discontinued Drug form: ECTAB, Before Dinner, Start date: 04/28/11 16:30:00, Duration: 30 day, Stop date: 05/27/11 16:30:00 Xanax 0.5 mg, 1 tab, Route: PO, 04/28/2011 05/05/2011 Discontinued Drug form: TAB, Daily, Start date: 04/28/11 9:00:00, Duration: 30 day, Stop date: 05/27/11 9:00:00 acetaminophen-hydrocodon 1 tab, Route: PO, Drug 04/28/2011 05/05/2011 Discontinued e 325 mg-5 mg oral Form: TAB, Q6H, PRN Pain, tablet Start date: 04/28/11 2:12:00, Duration: 30 day, Stop date: 05/28/11 2:11:00 K-Dur 10 10 mEq, 1 tab, Route: PO, 04/28/2011 05/05/2011 Discontinued Drug form: ERTAB, Daily, Start date: 04/28/11 9:00:00, Duration: 30 day, Stop date: 05/27/11 9:00:00 Neurontin 600 mg, 2 cap, Route: PO, 04/28/2011 05/05/2011 Discontinued Drug form: CAP, TID, Start date: 04/28/11 9:00:00, Duration: 30 day, Stop date: 05/27/11 17:00:00 Coreg 3.125 mg, 1 tab, Route: 05/02/2011 05/04/2011 Discontinued PO, Drug form: TAB, BID, Start date: 05/02/11 17:00:00, Duration: 30 day, Stop date: 06/01/11 9:00:00 Coumadin 10 mg, 1 tab, Route: PO, 05/02/2011 05/02/2011 Completed Drug form: TAB, ONCE, Start date: 05/02/11 17:00:00, Stop date: 05/02/11 17:00:00 Coumadin 2.5 mg, 1 tab, Route: PO, 05/01/2011 05/01/2011 Deleted Drug form: TAB, QPM, Start date: 05/01/11 17:00:00, Duration: 30 day, Stop date: 05/30/11 17:00:00 Coumadin 10 mg, 1 tab, Route: PO, 05/04/2011 05/04/2011 Completed Drug form: TAB, ONCE, Start date: 05/04/11 17:00:00, Stop date: 05/04/11 17:00:00 Coumadin 2.5 mg, 1 tab, Route: PO, 04/28/2011 04/30/2011 Discontinued Drug form: TAB, Bedtime, Start date: 04/28/11 21:00:00, Duration: 30 day, Stop date: 05/27/11 21:00:00 Coreg 3.125 mg, 1 tab, Route: 05/04/2011 05/04/2011 Discontinued PO, Drug form: TAB, BID, Start date: 05/04/11 17:00:00, Duration: 30 day, Stop date: 06/03/11 9:00:00 Betapace 80 mg, 1 tab, Route: PO, 04/28/2011 05/05/2011 Discontinued Drug form: TAB, BID, Start date: 04/28/11 10:52:00, Duration: 30 day, Stop date: 05/28/11 9:00:00 Coumadin 10 mg, 1 tab, Route: PO, 05/05/2011 05/05/2011 Completed Drug form: TAB, ONCE, Start date: 05/05/11 14:58:00, Stop date: 05/05/11 14:58:00 Vital Signs Most recent to oldest 1 2 3 [Reference Range]: Height 193.04 cm (04/28/2011 00:28:00) Current Weight 126.818 kg 126.500 kg 126.381 kg (05/05/2011 05:14:00) (05/03/2011 06:00:00) (05/01/2011 06:22:00) Temperature Oral 98.6 DegF 98.0 DegF 98.6 DegF [96.4-99.1 DegF] (05/05/2011 12:00:00) (05/05/2011 08:00:00) (05/05/2011 04: 00:00) Systolic Blood Pressure 124 mmHg 128 mmHg 118 mmHg [90-140 mmHg] (05/05/2011 12:00:00) (05/05/2011 08:00:00) (05/05/2011 04:00: 00) Diastolic Blood Pressure 52 mmHg 70 mmHg 54 mmHg [60-90 mmHg] *LOW* (05/05/2011 08:00:00) *LOW* (05/05/2011 12:00:00) (05/05/2011 04:00:00) Respiratory Rate [14-20 20 BRMIN 18 BRMIN 20 BRMIN BRMIN] (05/05/2011 12:00:00) (05/05/2011 08:00:00) (05/05/2011 04:00:00) Peripheral Pulse Rate 57 bpm 51 bpm 52 bpm [60-100 bpm] *LOW* *LOW* *LOW* (05/05/2011 12:00:00) (05/05/2011 08:00:00) (05/05/2011 04:00:00) Weight 126.477 kg 125.100 kg (05/02/2011 05:34:00) (04/28/2011 00:28:00) Results BACTERIAL - SEROLOGY Most recent to [Reference Range]: 1 2 3 4 MRSA by PCR Negative 1 (04/28/2011 10:58:00) 1Interpretive Data: INTERPRETATION: Negative......No MRSA DNA detected by PCR Positive......MRSA DNA detected by PCRASSAY LIMITATIONS:This is a screening test for colonization by MRSA. A positivetest result indicates the patient is colonized by MRSA, but does not necessarily mean that an infection is present or that treatment is necessary. Likewise, a negative test does not exclude colonization or infection. Patients should be evaluatedclinically for symptoms and signs of infection before making therapeutic decisions. Routine decolonization is discouraged and should only be considered forselect patients after consultation with an infectious diseases specialist.BEDSIDE GLUCOSE TESTING Most recent to 1 2 3 4 [Reference Range]: Gluc POC Lifscn [65-110 147 mg/dL 2 114 mg/dL 3 204 mg/dL 4 mg/dL] *HI* *HI* *HI* (05/05/2011 11:34:00) (05/05/2011 07:53:00) (05/04/2011 21:20:00) Comment1 Notify RN/MD Notify RN/MD Assess Patient *NA* *NA* *NA* (05/05/2011 11:34:00) (05/05/2011 07:53:00) (05/04/2011 21:20:00) Comment2 Assess Patient Assess Patient Notify RN/MD *NA* *NA* *NA* (05/01/2011 20:38:00) (04/30/2011 20:54:00) (04/29/2011 07:52:00) Comment3 Assess Patient *NA* (04/29/2011 07:52:00) 2Interpretive Data: Upper Reportable Limit: 200 mg/dL.3Interpretive Data: Upper Reportable Limit: 200 mg/dL.4Interpretive Data: Upper Reportable Limit: 200 mg/dL.BLOOD BANK RESULTS Most recent to [facility] [Reference Range]: 1 2 3 4 ABO/Rh AB POS *Unknown* (04/28/2011 04:52:00) Antibody Scrn Negative (04/28/2011 04:52:00) Platelet product Product available (04/28/2011 04:52:00) CHEMISTRY Most recent to oldest 1 2 3 4 [Reference Range]: Sodium Lvl [135-145 mEq/L] 141 mEq/L 138 mEq/L 137 mEq/L (05/05/2011 05:00:00) (04/29/2011 05:20:00) (04/28/2011 10:50:00) Potassium Lvl [3.5-5.1 4.4 mEq/L 4.5 mEq/L 3.6 mEq/L mEq/L] (05/05/2011 05:00:00) (04/29/2011 05:20:00) (04/28/2011 10:50:00) Chloride Lvl [95-109 106 mEq/L 100 mEq/L 99 mEq/L mEq/L] (05/05/2011 05:00:00) (04/29/2011 05:20:00) (04/28/2011 10:50:00) CO2 [24-32 mEq/L] 29 mEq/L 31 mEq/L 30 mEq/L (05/05/2011 05:00:00) (04/29/2011 05:20:00) (04/28/2011 10:50:00) AGAP [10.0-20.0 mEq/L] 10.4 mEq/L 11.5 mEq/L 11.6 mEq/L (05/05/2011 05:00:00) (04/29/2011 05:20:00) (04/28/2011 10:50:00) Creatinine Lvl [0.5-1.4 1.2 mg/dL 1.4 mg/dL 1.4 mg/dL mg/dL] (05/05/2011 05:00:00) (04/29/2011 05:20:00) (04/28/2011 10:50:00) BUN [7-22 mg/dL] 25 mg/dL 22 mg/dL 26 mg/dL *HI* (04/29/2011 05:20:00) *HI* (05/05/2011 05:00:00) (04/28/2011 10:50:00) Glucose Lvl 86 mg/dL 5 101 mg/dL 6 139 mg/dL 7 *NA* *NA* *NA* (05/05/2011 05:00:00) (04/29/2011 05:20:00) (04/28/2011 10:50:00) Total Protein [6.4-8.4 6.7 g/dL g/dL] (04/28/2011 10:50:00) Albumin Lvl [3.5-5.0 g/dL] 3.2 g/dL *LOW* (04/28/2011 10:50:00) Globulin [2.0-4.0 g/dL] 3.5 g/dL (04/28/2011 10:50:00) A/G Ratio [0.7-1.6] 0.9 (04/28/2011 10:50:00) Calcium Lvl [8.5-10.5 8.2 mg/dL 8.3 mg/dL 8.0 mg/dL mg/dL] *LOW* *LOW* *LOW* (05/05/2011 05:00:00) (04/29/2011 05:20:00) (04/28/2011 10:50:00) Phosphorus [2.5-4.5 mg/dL] 2.5 mg/dL (05/05/2011 05:00:00) Magnesium Lvl [1.8-2.4 2.1 mg/dL mg/dL] (05/05/2011 05:00:00) ALT [0-65 U/L] 15 U/L (04/28/2011 10:50:00) AST [0-37 U/L] 17 U/L (04/28/2011 10:50:00) Alk Phos [39-136 U/L] 46 U/L (04/28/2011 10:50:00) Bili Total [0.2-1.3 mg/dL] 0.8 mg/dL (04/28/2011 10:50:00) Bili Direct [0.0-0.3 0.2 mg/dL mg/dL] (04/28/2011 10:50:00) Bili Indirect [0.0-1.0 0.6 mg/dL mg/dL] (04/28/2011 10:50:00) Total CK [12-191 U/L] 133 U/L (04/28/2011 02:40:00) CK MB [0.5-3.6 ng/mL] 4.9 ng/mL *HI* (04/28/2011 02:40:00) CK MB Index [0.0-2.5] 3.7 *HI* (04/28/2011 02:40:00) Troponin-I [0.00-0.40 0.70 ng/mL 8 ng/mL] *CRIT* (04/28/2011 02:40:00) BNP [<=100 pg/mL] 349 pg/mL 9 *HI* (04/28/2011 02:40:00) CHD Risk [4.00-7.30] 3.67 *LOW* (05/05/2011 05:00:00) Chol [120-200 mg/dL] 154 mg/dL (05/05/2011 05:00:00) Trig [0-200 mg/dL] 117 mg/dL (05/05/2011 05:00:00) HDL [>=35 mg/dL] 42 mg/dL (05/05/2011 05:00:00) LDL [0-129 mg/dL] 89 mg/dL (05/05/2011 05:00:00) Hgb A1C 7.2 % 10 *NA* (04/29/2011 05:20:00) TSH [0.360-3.740 uIU/mL] 3.540 uIU/mL (04/29/2011 05:20:00) 5Interpretive Data: Reference Ranges : 0 - 7 days : 41 - 90 mg/dL7 days - 150 yrs : 70 - 99 mg/dL (fasting), based on the clinical recommendations of the [place] [employer].6Interpretive Data: Reference Ranges : 0 - 7 days : 41 - 90 mg/dL7 days - 150 yrs : 70 - 99 mg/dL (fasting), based on the clinical recommendations of the [place] [employer].7Interpretive Data : Reference Ranges : 0 - 7 days : 41 - 90 mg/dL7 days - 150 yrs : 70 - 99 mg/dL (fasting), based on the clinical recommendations of the [place] [employer].8Result Comment: Critical Result(s) called to Carroll at 2010 3:51 by BVo. Read back OK.9Interpretive Data: Elevated results are in line with increasing severity of congestive heart failure. Minor elevations between 100 and 300 may be seen with Myocardial Ischemia, Sodium retaining drugs , and compensated/treated heart failure.10Interpretive Data: HbA1C% eAG(mg /dL) Interpretation 6.0 126Very good control 6.5 140 Very good control 7.0 154 Good Control 7.5 169 Good Control 8.0 183 Marginal Control , take action to lower 8.5 197 Marginal Control, take action to lower 9.0 212 Poor Control, take action to lower 9.5 226 Poor Control, takeaction to lower10.0 240 Poor Control, take action to lowerHEMATOLOGY Most recent to 1 2 3 4 oldest [Reference Range]: WBC [3.7-10.4 K/CMM] 4.3 K/CMM 4.5 K/CMM 4.8 K/CMM (05/05/2011 05:00:00) (05/04/2011 04:30:00) (05/03/2011 04:40:00) RBC [4.70-6.10 3.97 M/CMM 4.06 M/CMM 4.23 M/CMM M/CMM] *LOW* *LOW* *LOW* (05/05/2011 05:00:00) (05/04/2011 04:30:00) (05/03/2011 04:40:00) Hgb [14.0-18.0 g/dL] 12.5 g/dL 12.6 g/dL 13.2 g/dL *LOW* *LOW* *LOW* (05/05/2011 05:00:00) (05/04/2011 04:30:00) (05/03/2011 04:40:00) Hct [42.0-54.0 %] 36.7 % 37.0 % 38.7 % *LOW* *LOW* *LOW* (05/05/2011 05:00:00) (05/04/2011 04:30:00) (05/03/2011 04:40:00) MCV [80.0-94.0 fL] 92.5 fL 91.1 fL 91.6 fL (05/05/2011 05:00:00) (05/04/2011 04:30:00) (05/03/2011 04:40:00) MCH [27.0-31.0 pg] 31.5 pg 31.2 pg 31.3 pg *HI* *HI* *HI* (05/05/2011 05:00:00) (05/04/2011 04:30:00) (05/03/2011 04:40:00) MCHC [32.0-36.0 34.0 g/dL 34.2 g/dL 34.2 g/dL g/dL] (05/05/2011 05:00:00) (05/04/2011 04:30:00) (05/03/2011 04:40:00) RDW [11.5-14.5 %] 15.1 % 15.0 % 15.4 % *HI* *HI* *HI* (05/05/2011 05:00:00) (05/04/2011 04:30:00) (05/03/2011 04:40:00) Platelet [133-450 48 K/CMM 51 K/CMM 66 K/CMM K/CMM] *LOW* *LOW* *LOW* (05/05/2011 05:00:00) (05/04/2011 04:30:00) (05/03/2011 04:40:00) MPV [7.4-10.4 fL] 9.7 fL 9.8 fL 10.0 fL (05/05/2011 05:00:00) (05/04/2011 04:30:00) (05/03/2011 04:40:00) Segs [45.0-75.0 %] 42.0 % 33.5 % 33.0 % 36.4 % *LOW* *LOW* *LOW* *LOW* (05/05/2011 05:00:00) (05/04/2011 04:30:00) (05/03/2011 04:40:00) (2010 04:40:00) Bands [0.0-11.0 %] 0.0 % 1.0 % 0.0 % (05/05/2011 05:00:00) (05/03/2011 04:40:00) (05/01/2011 04:30:00) Lymphocytes 51.0 % 56.9 % 54.0 % 54.7 % [20.0-40.0 %] *HI* *HI* *HI* *HI* (05/05/2011 05:00:00) (05/04/2011 04:30:00) (05/03/2011 04:40:00) (2010 04:40:00) Atypical Lymphs 0.0 % 2.0 % 5.0 % [<=0.0 %] (05/05/2011 05:00:00) *HI* *HI* (05/03/2011 04:40:00) (05/01/2011 04:30:00) Monocytes [2.0-12.0 5.0 % 6.1 % 4.0 % 5.1 % %] (05/05/2011 05:00:00) (05/04/2011 04:30:00) (05/03/2011 04:40:00) (05/03 04:40:00) Eosinophils [0.0-4.0 2.0 % 2.9 % 6.0 % 3.4 % %] (05/05/2011 05:00:00) (05/04/2011 04:30:00) *HI* (05/03/2011 04:40:00) (05/03/2011 04:40:00) Basophils [0.0-1.0 0.0 % 0.6 % 0.0 % 0.4 % %] (05/05/2011 05:00:00) (05/04/2011 04:30:00) (05/03/2011 04:40:00) (05/03 04:40:00) Segs-Bands # 1.8 K/CMM 1.5 K/CMM 1.6 K/CMM 1.7 K/CMM [1.5-8.1 K/CMM] (05/05/2011 05:00:00) (05/04/2011 04:30:00) (05/03/2011 04: 40:00) (05/03/2011 04:40:00) Lymphocytes # 2.2 K/CMM 2.6 K/CMM 2.7 K/CMM 2.6 K/CMM [1.0-5.5 K/CMM] (05/05/2011 05:00:00) (05/04/2011 04:30:00) (05/03/2011 04: 40:00) (05/03/2011 04:40:00) Monocytes # [0.0-0.8 0.2 K/CMM 0.3 K/CMM 0.2 K/CMM 0.2 K/CMM K/CMM] (05/05/2011 05:00:00) (05/04/2011 04:30:00) (05/03/2011 04:40:00) ( 05/03/2011 04:40:00) Eosinophils # 0.1 K/CMM 0.1 K/CMM 0.3 K/CMM 0.2 K/CMM [0.0-0.5 K/CMM] (05/05/2011 05:00:00) (05/04/2011 04:30:00) (05/03/2011 04: 40:00) (05/03/2011 04:40:00) Basophils # [0.0-0.2 0.0 K/CMM 0.0 K/CMM 0.0 K/CMM K/CMM] (05/04/2011 04:30:00) (05/03/2011 04:40:00) (05/02/2011 04:15:00) RBC Morph Normal (04/30/2011 05:00:00) Polychrom [None Slight Slight Slight Seen] (05/02/2011 04:15:00) (05/01/2011 04:30:00) (04/29/2011 05:20:00) Target Cell [None Slight Slight Seen] *ABN* *ABN* (05/02/2011 04:15:00) (05/01/2011 04:30:00) Elliptocyte [None Slight Slight Slight Seen] *ABN* *ABN* *ABN* (05/05/2011 05:00:00) (05/03/2011 04:40:00) (05/01/2011 04:30:00) Smudge [None Seen] Slight (05/01/2011 04:30:00) Plt Morph Normal (04/28/2011 10:50:00) Large Plt [None Slight Slight Slight Seen] *ABN* *ABN* *ABN* (05/05/2011 05:00:00) (05/03/2011 04:40:00) (05/02/2011 04:15:00) PT [12.0-14.7 21.1 seconds 18.2 seconds 17.2 seconds seconds] *HI* *HI* *HI* (05/05/2011 05:00:00) (05/04/2011 04:30:00) (05/03/2011 04:40:00) INR [0.85-1.17] 1.84 11 1.52 12 1.41 13 *HI* *HI* *HI* (05/05/2011 05:00:00) (05/04/2011 04:30:00) (05/03/2011 04:40:00) PTT [22.9-35.8 44.8 seconds 14 43.4 seconds 15 37.6 seconds 16 seconds] *HI* *HI* *HI* (05/05/2011 05:00:00) (05/04/2011 04:30:00) (05/03/2011 04:40:00) dRVVT [<=42.9 36.9 seconds seconds] (04/30/2011 05:00:00) Heprn Ab(HASEEB) Negative [Negative] (04/28/2011 10:50:00) Pat Od Value .084 *NA* (04/28/2011 10:50:00) Pos CO Value .376 *NA* (04/28/2011 10:50:00) Hex Phos N Negative [Negative] (04/30/2011 05:00:00) Lup Interp Negative for lupus anticoagulant by DRVVT and hexagonal phospholipid neutralization. If there is strong clinical suspicion of lupus anticoagulant, additional testing, to include anticardiol ipin antibody assays, is recommended. Interpretation performed at [facility]. *NA* (04/30/2011 05:00:00) 11Interpretive Data: RECOMMENDED RANGES FOR PROTIME INR: 2.0-3.0 for most medical and surgical thromboembolic states. 2.5-3.5 for artificial heart valves and recurrent embolism.INR SHOULD BE USED ONLY FOR PATIENTS ON STABLE ANTICOAGULANT THERAPY.12Interpretive Data: RECOMMENDED RANGES FOR PROTIME INR: 2.0-3.0 for most medical and surgical thromboembolic states. 2.5-3.5 for artificial heart valves and recurrent embolism.INR SHOULD BE USED ONLY FOR PATIENTS ON STABLE ANTICOAGULANT THERAPY.13Interpretive Data: RECOMMENDED RANGES FOR PROTIME INR: 2.0-3.0 for most medical and surgical thromboembolic states. 2.5-3.5 for artificial heart valves and recurrent embolism.INR SHOULD BE USED ONLY FOR PATIENTS ON STABLE ANTICOAGULANT THERAPY.14Interpretive Data: Heparin Therapeutic Range: 57 - 92 [id number] Data: Heparin Therapeutic Range: 57 - 92 [id number] Data: Heparin Therapeutic Range: 57 - 92 SecondsIMMUNOLOGY Most recent to oldest [Reference 1 2 3 4 Range]: Cardiolipin IgA 2 IgA Phospholipid Units 17 *NA* (04/30/2011 05:00:00) Cardiolipin IgG 6 IgG Phospholipid Units 18 *NA* (04/30/2011 05:00:00) Cardiolipin IgM 4.3 IgM Phospholipid Units 19 *NA* (04/30/2011 05:00:00) Beta2-Glycoprotein IgM [< OR=20 SMU] <9 SMU 20 *NA* (04/30/2011 05:00:00) Beta2-Glycoprotein IgG [< OR=20 SGU] <9 SGU 21 *NA* (04/30/2011 05:00:00) Beta2-Glycoprotein IgA [< OR=20 RICKIE] <9 RICKIE 22 *NA* (04/30/2011 05:00:00) Albumin % [55.8-66.1 REL %] 51.1 REL % *LOW* (04/30/2011 05:00:00) Alpha 1 % [2.8-4.9 REL %] 4.2 REL % (04/30/2011 05:00:00) Alpha 2 % [7.0-11.9 REL %] 11.2 REL % (04/30/2011 05:00:00) Beta % [7.8-13.7 REL %] 9.9 REL % (04/30/2011 05:00:00) Gamma % [11.1-18.7 REL %] 23.6 REL % *HI* (04/30/2011 05:00:00) Albumin (SPE) [3.57-5.55 g/dL] 3.58 g/dL (04/30/2011 05:00:00) Alpha 1 Glob [0.18-0.41 g/dL] 0.29 g/dL (04/30/2011 05:00:00) Alpha 2 Glob [0.45-1.00 g/dL] 0.78 g/dL (04/30/2011 05:00:00) Beta Glob [0.50-1.15 g/dL] 0.69 g/dL (04/30/2011 05:00:00) Gamma Glob [0.71-1.57 g/dL] 1.65 g/dL *HI* (04/30/2011 05:00:00) Tot Prot (SPE) [6.4-8.4 g/dL] 7.0 g/dL (04/30/2011 05:00:00) SPE Interp Total protein and albumin are within reference range. A distinct monoclonal band comprising 1.31 g/dl of protein is present in the gamma globulin region. There is also an indication of restricted hete rogeneity in immunoglobulin synthesis. Serum and urine immunofixation studies are recommended for further evaluation. Interpretation performed at [facility]. *NA* (04/30/2011 05:00:00) 24Hr UPE 125 mg/24hrs *NA* (04/30/2011 10:15:00) 24 UPE Tot Prot 5 mg/dL *NA* (04/30/2011 10:15:00) 24 UPE Tot Vol 2500 mL *NA* (04/30/2011 10:15:00) 24Hr UPE Int Normal urine protein electrophoresis with minimal proteinuria. No monoclonal bands are identified; however, evaluation is limited by the small amount of protein and the resulting lack of discernible ba nds on the electrophoretic gel.Interpretation performed at [facility]. *NA* (04/30/2011 10:15:00) JASPREET Ser Pattern A monoclonal band is noted in the gamma region of the IgG and lambda lanes. Faint diffusely immunoreactive bands are also noted in the IgG, IgA, IgM, kappa, and lambda lanes.Interpretation performed at [facility]. *NA* (04/30/2011 05:00:00) JASPREET Ser Interp Serum immunofixation electrophoresis reveals a monoclonal protein of IgG lambda specificity. Normal polyclonal immunoglobulins are present in decreased amounts.Interpretation performed at [facility]. *NA* (04/30/2011 05:00:00) 17Interpretive Data: Reference Ranges for IgA:0-11 APL - [id number] APL [id number] APL Low-Med Positive> 80 APL Strong [id number] Data: Reference Ranges for Ig-14 GPL --------- [id number] GPL [id number] GPL ---- Low-Med Positive> 80 GPL Strong [id number] Data: Reference Ranges for IgM:0-12.4 MPL ------- [id number] MPL [id number] MPL Low-Med Positive> 80 MPL ---- Strong [id number] Comment: Patients who are found to be anticardiolipinantibody positive may have negative studies forantibodies to Beta 2 GPI. Positive anticardiolipinantibody tests together with negative testing forantibodies to Beta 2 GPI may be seen in a varietyof different clinical settings includingconvalescence from recent infections (viral orbacterial).Test Performed at[facility] [place] [address] Mario Bowen MD, [id number] Comment: Patients who are found to be anticardiolipinantibody positive may have negative studies forantibodies to Beta 2 GPI. Positive anticardiolipinantibody tests together with negative testing forantibodies to Beta 2 GPI may be seen in a varietyof different clinical settings includingconvalescence from recent infections (viral orbacterial).Test Performed at:[id number] [place] [address] Mario Bowen MD, [id number] Comment: Patients who are found to be anticardiolipinantibody positive may have negative studies forantibodies to Beta 2 GPI. Positive anticardiolipinantibody tests together with negative testing forantibodies to Beta 2 GPI may be seen in a varietyof different clinical settings includingconvalescence from recent infections (viral orbacterial).Clinical Significance:The Antiphospholipid AntibodySyndrome (APS) is aclinical pathologic correlation that includes aclinical event (e.g. thrombosis, loss,thrombocytopenia) and persistent positiveAntiphospholipid Antibodies (IgM or IgG NISH >40MPL/GPL, IgM or IgG anti- B2GP1 antibodies, or aLupus Anticoagulant). The IgA isotype has beenimplicated in smaller studies, but have not yetbeen incorporated into the APS criteria.International consensus guidelines suggest waitingat least 12 weeks before retesting to confirmantibody persistence. Reference J Thromb Ddrppup6935 : 4; 295.Test Performed at:[facility] [place] [address] Mario Bowen MD, PhD
--- OUTSIDE RECORDS SUMMARY | 2019-01-23 09:58 | XMS REPORT | CCD ---
:1935 Author Organization [facility] Team Providers Name Role Phone Arnaldo Morrison Consulting Provider Allergies, Adverse Reactions, Alerts Substance Reaction Status Bactrim hives Active NKDA Canceled Problem List Condition Effective Dates Status AF - Atrial fibrillation Active Cardiac catheterization 04/28/2011 Active Chest pain Active Dizziness Active Nausea Active
--- OUTSIDE RECORDS SUMMARY | 2019-01-23 09:59 | XMS REPORT | CCD ---
:1935 Author Organization [facility] Team Providers Name Role Phone Shaniqua Catalan Consulting Provider Allergies, Adverse Reactions, Alerts Substance Reaction Status Bactrim hives Active sulfa drugs Active Problem List Condition Effective Dates Status AF - Atrial fibrillation Active Cardiac catheterization 04/28/2011 Active Chest pain < 12/08/2011 Inactive Cough < 12/08/2011 Inactive Dizziness Active Fusion Active Nausea < 12/08/2011 Inactive Pain Active Medications Medication Instructions Start Date End Date Status Phenergan 25 mg, 1 tab, Route: PO, 02/26/2012 02/27/2012 Discontinued Drug form: TAB, Q6H, PRN Nausea & Vomiting, Start date: 02/26/12 19:46:00, Duration: 30 day, Stop date: 03/27/12 19:45:00 Protonix 40 mg, 1 tab, Route: PO, 02/26/2012 02/27/2012 Discontinued Drug form: ECTAB, Before Dinner, Start date: 02/26/12 19:46:00, Duration: 30 day, Stop date: 03/27/12 16:30:00 morphine Sulfate 4 mg, 0.5 mL, Route: IV, 02/26/2012 02/27/2012 Discontinued Drug form: INJ, Q4H, PRN Pain, Start date: 02/26/12 0:46:00, Duration: 30 day, Stop date: 03/27/12 0:45:00 nitroglycerin 0.4 mg 0.4 mg, 1 tab, Route: 02/26/2012 02/27/2012 Discontinued sublingual tablet SL, Drug form: TAB, Q5Min, PRN Chest Pain, Start date: 02/26/12 0:46:00, Duration: 30 day, Stop date: 03/26/12 23:45:00 Prinivil 2.5 mg, 0.5 tab, Route: 02/26/2012 02/27/2012 Discontinued PO, Drug form: TAB, Daily, Start date: 02/26/12 9:00:00, Duration: 30 day, Stop date: 03/26/12 9:00:00 Lopressor 25 mg, 1 tab, Route: PO, 02/26/2012 02/26/2012 Discontinued Drug form: TAB, Q12H, Start date: 02/26/12 9:00:00, Duration: 30 day, Stop date: 03/26/12 21:00:00 Lovenox 120 mg, 0.8 mL, Route: 02/26/2012 02/26/2012 Discontinued SUB-Q, Drug form: INJ, [id number], Start date: 02/26/12 1:00:00, Duration: 30 day, Stop date: 03/26/12 13:00:00 aspirin 325 mg tablet 325 mg, 1 tab, Route: 02/26/2012 02/27/2012 Discontinued PO, Drug form: TAB, Daily, Start date: 02/26/12 9:00:00, Duration: 30 day, Stop date: 03/26/12 9:00:00 Sodium Chloride 0.9% IV 250 mL, Route: IVPB, 02/26/2012 02/27/2012 Discontinued Start date: 02/26/12 0:45:00, Duration: 30 day, Stop date: 03/26/12 23:44:00, PRN Line Flush BD Normal Saline Flush 10 mL, Route: IVP, Drug 02/26/2012 02/27/2012 Discontinued Form: INJ, PRN, PRN Line Flush, Start date: 02/26/12 0:45:00, Duration: 30 day, Stop date: 03/26/12 23:44:00 acetaminophen-hydrocodone 1 tab, Route: PO, Drug 02/26/2012 02/27/2012 Discontinued 325 mg-10 mg oral tablet Form: TAB, Q6H, PRN Pain Score 4-6, Start date: 02/26/12 19:45:00, Duration: 30 day, Stop date: 03/27/12 19:44:00 Zaroxolyn 5 mg, 2 tab, Route: PO, 02/26/2012 02/27/2012 Discontinued Drug form: TAB, Daily, Start date: 02/26/12 19:44:00, Duration: 30 day, Stop date: 03/27/12 9:00:00 Xanax 0.5 mg, 0.5 tab, Route: 02/26/2012 02/27/2012 Discontinued PO, Drug form: TAB, Daily, Start date: 02/26/12 19:50:00, Duration: 30 day, Stop date: 03/27/12 9:00:00 Lipitor 10 mg, 1 tab, Route: PO, 02/26/2012 02/27/2012 Discontinued Drug form: TAB, Daily, Start date: 02/26/12 19:43:00, Duration: 30 day, Stop date: 03/27/12 9:00:00 Betapace 80 mg, 1 tab, Route: PO, 02/26/2012 02/27/2012 Discontinued Drug form: TAB, BID, Start date: 02/26/12 19:49:00, Duration: 30 day, Stop date: 03/27/12 17:00:00 Neurontin 600 mg, 2 cap, Route: 02/27/2012 02/27/2012 Discontinued PO, Drug form: CAP, TID, Start date: 02/27/12 9:00:00, Duration: 30 day, Stop date: 03/27/12 17:00:00 Demadex 10 mg, 1 tab, Route: PO, 02/27/2012 02/27/2012 Discontinued Drug form: TAB, Daily, Start date: 02/27/12 9:00:00, Duration: 30 day, Stop date: 03/27/12 9:00:00 Vital Signs Most recent to oldest 1 2 3 [Reference Range]: Height 193.04 cm 193.04 cm (02/26/2012 00:58:00) (02/26/2012 00:13:00) Temperature Oral 98.7 DegF 98.3 DegF 97.5 DegF [96.4-99.1 DegF] (02/27/2012 21:30:00) (02/27/2012 16:00:00) (02/27/2012 12: 00:00) Systolic Blood Pressure 136 mmHg 123 mmHg 124 mmHg [90-140 mmHg] (02/27/2012 21:30:00) (02/27/2012 16:00:00) (02/27/2012 12:00: 00) Diastolic Blood Pressure 91 mmHg 69 mmHg 61 mmHg [60-90 mmHg] *HI* (02/27/2012 16:00:00) (02/27/2012 12:00:00) (02/27/2012 21:30:00) Respiratory Rate [14-20 18 BRMIN 20 BRMIN 20 BRMIN BRMIN] (02/27/2012 21:30:00) (02/27/2012 16:00:00) (02/27/2012 12:00:00) Peripheral Pulse Rate 116 bpm 57 bpm 57 bpm [60-100 bpm] *HI* *LOW* *LOW* (02/27/2012 21:30:00) (02/27/2012 16:00:00) (02/27/2012 12:00:00) Weight 120.000 kg 119.091 kg (02/26/2012 00:58:00) (02/26/2012 00:13:00) Results CHEMISTRY Most recent to oldest 1 2 3 [Reference Range]: Sodium Lvl [135-145 mEq/L] 142 mEq/L 138 mEq/L 138 mEq/L (02/27/2012 05:30:00) (02/26/2012 16:40:00) (02/26/2012 05:00:00) Potassium Lvl [3.5-5.1 3.8 mEq/L 3.9 mEq/L 1 3.5 mEq/L mEq/L] (02/27/2012 05:30:00) (02/26/2012 16:40:00) (02/26/2012 05:00:00) Chloride Lvl [95-109 mEq/L] 102 mEq/L 99 mEq/L 99 mEq/L (02/27/2012 05:30:00) (02/26/2012 16:40:00) (02/26/2012 05:00:00) CO2 [24-32 mEq/L] 28 mEq/L 31 mEq/L 30 mEq/L (02/27/2012 05:30:00) (02/26/2012 16:40:00) (02/26/2012 05:00:00) AGAP [10.0-20.0 mEq/L] 15.8 mEq/L 11.9 mEq/L 12.5 mEq/L (02/27/2012 05:30:00) (02/26/2012 16:40:00) (02/26/2012 05:00:00) Creatinine Lvl [0.5-1.4 1.0 mg/dL 1.2 mg/dL 1.6 mg/dL mg/dL] (02/27/2012 05:30:00) (02/26/2012 16:40:00) *HI* (02/26/2012 05:00:00) eGFR 84 mL/min/1.73m2 2 68 mL/min/1.73m2 3 48 mL/min/1.73m2 4 *NA* *NA* *NA* (02/27/2012 05:30:00) (02/26/2012 16:40:00) (02/26/2012 05:00:00) BUN [7-22 mg/dL] 17 mg/dL 26 mg/dL 36 mg/dL (02/27/2012 05:30:00) *HI* *HI* (02/26/2012 16:40:00) (02/26/2012 05:00:00) B/C Ratio [6-25] 22 (02/26/2012 05:00:00) Glucose Lvl [70-99 mg/dL] 84 mg/dL 5 111 mg/dL 6 91 mg/dL 7 (02/27/2012 05:30:00) *HI* (02/26/2012 05:00:00) (02/26/2012 16:40:00) Total Protein [6.4-8.4 5.8 g/dL g/dL] *LOW* (02/26/2012 05:00:00) Albumin Lvl [3.5-5.0 g/dL] 2.6 g/dL *LOW* (02/26/2012 05:00:00) Globulin [2.0-4.0 g/dL] 3.2 g/dL (02/26/2012 05:00:00) A/G Ratio [0.7-1.6] 0.8 (02/26/2012 05:00:00) Calcium Lvl [8.5-10.5 7.9 mg/dL 7.7 mg/dL 7.8 mg/dL mg/dL] *LOW* *LOW* *LOW* (02/27/2012 05:30:00) (02/26/2012 16:40:00) (02/26/2012 05:00:00) ALT [0-65 unit/L] 15 unit/L (02/26/2012 05:00:00) AST [0-37 unit/L] 20 unit/L (02/26/2012 05:00:00) Alk Phos [39-136 unit/L] 33 unit/L *LOW* (02/26/2012 05:00:00) Bili Total [0.2-1.3 mg/dL] 0.6 mg/dL (02/26/2012 05:00:00) Total CK [12-191 unit/L] 149 unit/L 128 unit/L 291 unit/L (02/26/2012 08:56:00) (02/26/2012 05:00:00) *HI* (02/26/2012 01:15:00) CK MB [0.5-3.6 ng/mL] 1.5 ng/mL 1.7 ng/mL 1.1 ng/mL (02/26/2012 08:56:00) (02/26/2012 05:00:00) (02/26/2012 01:15:00) CK MB Index [0.0-2.5] 1.0 1.3 0.4 (02/26/2012 08:56:00) (02/26/2012 05:00:00) (02/26/2012 01:15:00) Troponin-I [0.00-0.40 0.11 ng/mL 0.10 ng/mL 0.09 ng/mL ng/mL] (02/26/2012 08:56:00) (02/26/2012 05:00:00) (02/26/2012 01:15:00) BNP [<=100 pg/mL] 195 pg/mL 8 157 pg/mL 9 *HI* *HI* (02/27/2012 05:30:00) (02/26/2012 16:40:00) CHD Risk [4.00-7.30] 2.51 1.95 *LOW* *LOW* (02/26/2012 05:00:00) (02/26/2012:15:00) Chol [120-200 mg/dL] 98 mg/dL 82 mg/dL *LOW* *LOW* (02/26/2012 05:00:00) (02/26/201215:) Trig [0-200 mg/dL] 92 mg/dL 137 mg/dL (02/26/2012 05:00:00) (02/26/201215:00) HDL [>=35 mg/dL] 39 mg/dL 42 mg/dL (02/26/2012 05:00:00) (02/26/201215:) LDL [0-129 mg/dL] 41 mg/dL 13 mg/dL (02/26/2012 05:00:00) (02/26/201215:) Hgb A1C 5.6 % 10 *NA* (02/26/2012 05:00:00) 1Result Comment: Specimen Slightly Hemolyzed.2Result Comment: The eGFR is calculated using the CKD-EPI formula. In most young, healthy individualsthe eGFR will be >90 mL/min/1.73m2. The eGFR declines with age. An eGFR of 60-89 may be normal in some populations, particularly the elderly, for whom the CKD- EPI formula has not been extensively validated. Use of the eGFR is not recommended in the following populations: Individuals with unstable creatinine concentrations, including patients and those with serious co-morbid conditions. Patients with extremes in muscle mass or diet. The data above are obtained from the National Kidney Disease Education Program ( NKDEP) which additionally recommends that when the eGFR is used in patients with extremes of body mass index for purposesof drug dosing, the eGFR should be multiplied by the estimated BMI.3Result Comment: The eGFR is calculated using the CKD-EPI formula. In most young, healthy individualsthe eGFR will be >90 mL/ min/1.73m2. The eGFR declines with age. An eGFR of 60-89 may be normal in some populations, particularly the elderly, for whom the CKD-EPI formula has not been extensively validated. Use of the eGFR is not recommended in the following populations: Individuals with unstable creatinine concentrations, including patients and those with serious co-morbid conditions. Patients with extremes in muscle mass or diet. The data above are obtained from the National Kid[employer] Disease Education Program ( NKDEP) which additionally recommends that when the eGFR is used in patients with extremes of body mass index for purposesof drug dosing, the eGFR should be multiplied by the estimated BMI.4Result Comment: The eGFR is calculated using the CKD-EPI formula. In most young, healthy individualsthe eGFR will be >90 mL/ min/1.73m2. The eGFR declines with age. An eGFR of 60-89 may be normal in some populations, particularly the elderly, for whom the CKD-EPI formula has not been extensively validated. Use of the eGFR is not recommended in the following populations: Individuals with unstable creatinine concentrations, including patients and those with serious co-morbid conditions. Patients with extremes in muscle mass or diet. The data above are obtained from the National Kid[employer] Disease Education Program ( NKDEP) which additionally recommends that when the eGFR is used in patients with extremes of body mass index for purposesof drug dosing, the eGFR should be multiplied by the estimated BMI.5Interpretive Data: Adult reference range values reflect the clinical guidelines of the [place] [employer].6Interpretive Data: Adult reference range values reflect the clinical guidelines of the [place] [employer].7Interpretive Data: Adult reference range values reflect the clinical guidelines of the [place] [employer].8Interpretive Data: Elevated results are in line with increasing severity of congestive heart failure. Minor elevations between 100 and 300 may be seen with Myocardial Ischemia, Sodium retaining drugs, and compensated/treated heart failure.9Interpretive Data: Elevated results are in line with increasing severity of congestive heart failure. Minor elevations between 100 and 300 may be seen with Myocardial Ischemia, Sodium retaining drugs, and compensated/treated heart failure.10Interpretive Data: HbA1C% eAG(mg/ dL) Interpretation 6.0 126 Very good control 6.5 140 Very good control 7.0 154 Good Control 7.5 169 Good Control 8.0 183 Marginal Control, take action to lower 8.5 197 Marginal Control, take action to lower 9.0 212 Poor Control, take action to lower 9.5 226 Poor Control, take action to lower 10.0 240 Poor Control, take action to lowerHEMATOLOGY Most recent to oldest [Reference Range]: 1 2 3 WBC [3.7-10.4 K/CMM] 4.6 K/CMM (02/27/2012 05:30:00) RBC [4.70-6.10 M/CMM] 3.40 M/CMM *LOW* (02/27/2012 05:30:00) Hgb [14.0-18.0 g/dL] 10.6 g/dL *LOW* (02/27/2012 05:30:00) Hct [42.0-54.0 %] 31.6 % *LOW* (02/27/2012 05:30:00) MCV [80.0-94.0 fL] 92.9 fL (02/27/2012 05:30:00) MCH [27.0-31.0 pg] 31.3 pg *HI* (02/27/2012 05:30:00) MCHC [32.0-36.0 g/dL] 33.7 g/dL (02/27/2012 05:30:00) RDW [11.5-14.5 %] 14.8 % *HI* (02/27/2012 05:30:00) Platelet [133-450 K/CMM] 34 K/CMM *LOW* (02/27/2012 05:30:00) MPV [7.4-10.4 fL] 9.9 fL (02/27/2012 05:30:00) Segs [45.0-75.0 %] 44.7 % *LOW* (02/27/2012 05:30:00) Lymphocytes [20.0-40.0 %] 43.6 % *HI* (02/27/2012 05:30:00) Monocytes [2.0-12.0 %] 8.3 % (02/27/2012 05:30:00) Eosinophils [0.0-4.0 %] 3.1 % (02/27/2012 05:30:00) Basophils [0.0-1.0 %] 0.3 % (02/27/2012 05:30:00) Segs-Bands # [1.5-8.1 K/CMM] 2.0 K/CMM (02/27/2012 05:30:00) Lymphocytes # [1.0-5.5 K/CMM] 2.0 K/CMM (02/27/2012 05:30:00) Monocytes # [0.0-0.8 K/CMM] 0.4 K/CMM (02/27/2012 05:30:00) Eosinophils # [0.0-0.5 K/CMM] 0.1 K/CMM (02/27/2012 05:30:00) Basophils # [0.0-0.2 K/CMM] 0.0 K/CMM (02/27/2012 05:30:00) Elliptocyte [None Seen] Slight *ABN* (02/27/2012 05:30:00) Plt Morph Normal (02/27/2012 05:30:00)
--- OUTSIDE RECORDS SUMMARY | 2019-01-23 09:59 | XMS REPORT | CCD ---
:1935 Author Organization [facility] Care Team Providers Name Role Phone Adan Cunningham Consulting Provider Bogdan Dahl Consulting Provider Allergies, Adverse Reactions, Alerts Substance Reaction Status Bactrim hives Active Problem List Condition Effective Dates Status AF - Atrial fibrillation Active Cardiac catheterization 04/28/2011 Active Chest pain < 12/08/2011 Inactive Cough < 12/08/2011 Inactive Dizziness Active Fusion Active Nausea < 12/08/2011 Inactive Pain Active Medications Medication Instructions Start Date End Date Status Humulin N 10 unit, 0.1 mL, Route: 12/03/2011 12/03/2011 Completed SUB-Q, Drug form: INJ, ONCE, Start date: 12/03/11 17:30:00, Stop date: 12/03/11 17:30:00 Dilaudid 0.5 mg, 0.25 mL, Route: 12/05/2011 12/07/2011 Discontinued IV, Drug form: INJ, Q3H, PRN Pain Score 4-6, Start date: 12/05/11 2:05:00, Duration: 30 day, Stop date: 01/04/12 2:04:00 torsemide 10 mg, 1 tab, Route: 12/02/2011 12/08/2011 Discontinued PO, Drug form: TAB, Daily, Start date: 12/02/11 9:00:00, Duration: 30 day, Stop date: 12/31/11 9:00:00 sotalol AF 80 mg oral 80 mg, 1 tab, Route: 12/02/2011 12/08/2011 Discontinued tablet PO, Drug form: TAB, BID, Start date: 12/02/11 9:00:00, Duration: 30 day, Stop date: 12/31/11 17:00:00 promethazine 25 mg, 1 tab, Route: 12/01/2011 12/08/2011 Discontinued PO, Drug form: TAB, Q12H, PRN as needed for nausea/vomiting, Start date: 12/01/11 19:21:00, Duration: 30 day, Stop date: 12/31/11 19:20:00 pantoprazole 40 mg, 1 tab, Route: 12/02/2011 12/08/2011 Discontinued PO, Drug form: ECTAB, Daily, Start date: 12/02/11 9:00:00, Duration: 30 day, Stop date: 12/31/11 9:00:00 lisinopril 10 mg, 1 tab, Route: 12/01/2011 12/08/2011 Discontinued PO, Drug form: TAB, BID, Start date: 12/01/11 21:00:00, Duration: 30 day, Stop date: 12/31/11 17:00:00 NS + KCL 20mEq/L 1000ml 1,000 mL, Rate: 100 12/03/2011 12/05/2011 Discontinued (Premix) 1,000 mL ml/hr, Infuse over: 10 hr, Route: IV, Dosing Weight 119.091 kg, Total Volume: 1,000, Start date: 12/03/11 23:15:00, Duration: 30 day, Stop date: 01/02/12 23:14:00 gabapentin 600 mg oral 600 mg, 2 cap, Route: 12/01/2011 12/08/2011 Discontinued tablet PO, Drug form: CAP, TID, Start date: 12/01/11 21:00:00, Duration: 30 day, Stop date: 12/31/11 14:00:00 Combivent inhalation 2 inhalation, Route: 12/02/2011 12/08/2011 Discontinued aerosol with adapter INHALER, Drug Form: AERO/A, Daily, Start date: 12/02/11 9:00:00, Duration: 30 day, Stop date: 12/31/11 9:00:00 atorvastatin 10 mg, 1 tab, Route: 12/01/2011 12/08/2011 Discontinued PO, Drug form: TAB, QPM, Start date: 12/01/11 21:00:00, Duration: 30 day, Stop date: 12/31/11 17:00:00 ALPRAZOLam 0.5 mg, 1 tab, Route: 12/01/2011 12/08/2011 Discontinued PO, Drug form: TAB, Daily, PRN as needed for anxiety, Start date: 12/01/11 19:21:00, Duration: 30 day, Stop date: 12/31/11 19:20:00 Ok[place]ena 10/325 oral tablet 1 tab, Route: PO, Drug 12/01/2011 12/07/2011 Discontinued Form: TAB, Q6H, PRN as needed for pain, Start date: 12/01/11 19:20:00, Duration: 30 day, Stop date: 12/31/11 19:19:00 heparin 5000 units/mL 7,500 unit, 1.5 mL, 12/05/2011 12/08/2011 Discontinued injectable solution Route: SUB-Q, Drug form: INJ, Q8H, Start date: 12/05/11 16:00:00, Duration: 30 day, Stop date: 01/04/12 8:00:00 senna 8.6 mg, 1 tab, Route: 12/05/2011 12/08/2011 Discontinued PO, Drug Form: TAB, BID, Start date: 12/05/11 9:00:00, Duration: 30 day, Stop date: 01/03/12 17:00:00 Colace 100 mg oral capsule 100 mg, 1 cap, Route: 12/05/2011 12/08/2011 Discontinued PO, Drug form: CAP, BID, Start date: 12/05/11 9:00:00, Duration: 30 day, Stop date: 01/03/12 17:00:00 cefazolin + Sodium Chloride 2 gm, Route: IVPB, Drug 12/05/2011 12/06/2011 Completed 0.9% IV 100 mL form: PDR/INJ, [id number], Start date: 12/05/11 6:00:00, Duration: 4 doses or times, Stop date: 12/06/11 6:00:00 dexamethasone 4 mg, 1 mL, Route: IV, 12/05/2011 12/08/2011 Completed Drug form: INJ, Q6H, Start date: 12/05/11 6:00:00, Duration: 12 doses or times, Stop date: 12/08/11 0:00:00 NS 1,000 mL 1,000 mL, Rate: 75 12/05/2011 12/05/2011 Discontinued ml/hr, Infuse over: 13.3 hr, Route: IV, Dosing Weight 119.091 kg, Total Volume: 1,000, Start date: 12/05/11 8:34:00, Duration: 30 day, Stop date: 01/04/12 8:33:00 Dilaudid 1 mg, 0.5 mL, Route: 12/05/2011 12/08/2011 Discontinued IV, Drug form: INJ, Q3H, PRN Pain Score 7-10, Start date: 12/05/11 2:05:00, Duration: 30 day, Stop date: 01/04/12 2:04:00 Humulin R 100 units/mL 7 unit, 0.07 mL, Route: 12/03/2011 12/08/2011 Discontinued injectable solution SUB-Q, Drug form: SOLN, Sliding Scale, PRN Blood Glucose Results, Start date: 12/03/11 17:20:00, Duration: 30 day, Stop date: 01/02/12 17:19:00 Humulin R 100 units/mL 6 unit, 0.06 mL, Route: 12/03/2011 12/08/2011 Discontinued injectable solution SUB-Q, Drug form: SOLN, Sliding Scale, PRN Blood Glucose Results, Start date: 12/03/11 17:20:00, Stop date: 01/02/12 17:19:00 Humulin R 100 units/mL 5 unit, 0.05 mL, Route: 12/03/2011 12/08/2011 Discontinued injectable solution SUB-Q, Drug form: SOLN, Sliding Scale, PRN Blood Glucose Results, Start date: 12/03/11 17:19:00, Duration: 30 day, Stop date: 01/02/12 17:18:00 atorvastatin 10 mg oral 10 mg, 1 tab, PO, 12/01/2011 Ordered tablet Daily, 30 tab, Substitution Allowed, TAB [place] 10/325 oral tablet 1 tab, PO, Q6H, PRN, 40 12/08/2011 Ordered tab, for pain, Substitution Allowed, Soft Stop, TAB [place] 10/325 oral tablet 1 tab, PO, Q6H, PRN, 24 12/01/2011 12/08/2011 Discontinued tab, for pain, Substitution Allowed, Soft Stop Humulin R 100 units/mL 4 unit, 0.04 mL, Route: 12/03/2011 12/08/2011 Discontinued injectable solution SUB-Q, Drug form: SOLN, Sliding Scale, PRN Blood Glucose Results, Start date: 12/03/11 17:17:00, Duration: 30 day, Stop date: 01/02/12 17:16:00 Humulin R 100 units/mL 3 unit, 0.03 mL, Route: 12/03/2011 12/08/2011 Discontinued injectable solution SUB-Q, Drug form: SOLN, Sliding Scale, PRN Blood Glucose Results, Start date: 12/03/11 17:17:00, Duration: 30 day, Stop date: 01/02/12 17:16:00 temazepam 15 mg, 1 cap, Route: 12/01/2011 12/08/2011 Discontinued PO, Drug form: CAP, Bedtime, PRN Insomnia, Start date: 12/01/11 19:15:00, Duration: 30 day, Stop date: 12/31/11 19:14:00 magnesium citrate 150 ml, Route: PO, Drug 12/06/2011 12/06/2011 Completed Form: LIQ, ONCE, Start date: 12/06/11 10:06:00, Stop date: 12/06/11 10:06:00 [place] 5/325 oral tablet 1 tab, Route: PO, Drug 12/07/2011 12/08/2011 Discontinued Form: TAB, Q4H, PRN Pain Score 4-6, Start date: 12/07/11 16:00:00, Duration: 30 day, Stop date: 01/06/12 15:59:00 ondansetron 4 mg, 2 mL, Route: IVP, 12/04/2011 12/05/2011 Discontinued Drug form: INJ, ONCE, PRN Nausea & Vomiting, Start date: 12/04/11 23:51:00 hydromorphone 0.5 mg, 0.25 mL, Route: 12/04/2011 12/05/2011 Discontinued IVP, Drug form: INJ, Q5Min, PRN Pain Score 4-6, Start date: 12/04/11 23:51:00, Duration: 5 doses or times, Stop date: Limited # of times naloxone 0.04 mg, 0.1 mL, Route: 12/04/2011 12/05/2011 Discontinued IVP, Drug form: INJ, Q2MIN, PRN Narcotic Reversal, Start date: 12/04/11 23:51:00, Duration: 8 doses or times, Stop date: Limited # of times flumazenil 0.2 mg, 2 mL, Route: 12/04/2011 12/05/2011 Discontinued IVP, Drug form: INJ, PRN, PRN Benzodiazepine Reversal, Initial dose, Start date: 12/04/11 23:51:00, Duration: 30 day, Stop date: 01/03/12 23:50:00 niCARdipine 0.25 mg, 0.1 mL, Route: 12/04/2011 12/05/2011 Completed IVP, Drug form: INJ, Q5Min, PRN Elevated BP, Start date: 12/04/11 23:51:00, Duration: 4 doses or times, Stop date: 12/05/11 4:00:00 Medrol Dosepak 4 mg Tablet As directed on package instructions, PO, Daily, 1 Pack, Substitution Allowed, Take with or without food 12/08/2011 12/14/2011 Ordered Take with or without food [place] 5/325 oral tablet 1 tab, Route: PO, Drug 12/07/2011 12/08/2011 Discontinued Form: TAB, Q4H, Start date: 12/07/11 16:00:00, Duration: 30 day, Stop date: 01/06/12 12:00:00 insulin isophane-NPH 10 unit, 0.1 mL, Route: 12/03/2011 12/03/2011 Completed SUB-Q, Drug form: INJ, ONCE, Start date: 12/03/11 12:38:00, Stop date: 12/03/11 12:38:00 methylPREDNISolone 60 mg, 1.5 mL, Route: 12/02/2011 12/03/2011 Completed IV, Drug form: INJ, Daily, Start date: 12/02/11 19:30:00, Duration: 2 doses or times, Stop date: 12/03/11 9:00:00 magnesium sulfate 2 gm, 50 mL, Route: 12/05/2011 12/05/2011 Completed IVPB, Drug form: INJ, ONCE, Start date: 12/05/11 5:00:00, Stop date: 12/05/11 5:00:00 Dextrose 50% in Water IV 25 mL, Route: IV, Start 12/03/2011 12/08/2011 Discontinued date: 12/03/11 17:00:00, Duration: 30 day, Stop date: 01/02/12 16:59:00, PRN Blood Glucose Results Humulin R 100 units/mL 2 unit, 0.02 mL, Route: 12/03/2011 12/08/2011 Discontinued injectable solution SUB-Q, Drug form: SOLN, Sliding Scale, PRN Blood Glucose Results, Start date: 12/03/11 17:16:00, Duration: 30 day, Stop date: 01/02/12 17:15:00 pantoprazole 40 mg oral 40 mg, 1 tab, PO, 12/01/2011 12/08/2011 Discontinued enteric coated tablet Daily, 30 tab, Substitution Allowed, ECTAB gabapentin 600 mg oral 600 mg, 1 tab, PO, TID, 12/01/2011 Ordered tablet 270 tab, Substitution Allowed Humulin R 100 units/mL 1 unit, 0.01 mL, Route: 12/03/2011 12/03/2011 Deleted injectable solution SUB-Q, Drug form: SOLN, Sliding Scale, PRN Blood Glucose Results, Start date: 12/03/11 17:15:00, Duration: 30 day, Stop date: 01/02/12 17:14:00 Dextrose 50% in Water IV 50 mL, Route: IV, Start 12/03/2011 12/08/2011 Discontinued date: 12/03/11 17:14:00, Duration: 30 day, Stop date: 01/02/12 17:13:00, PRN Blood Glucose Results Vital Signs Most recent to oldest 1 2 3 [Reference Range]: Height 193.04 cm 193.04 cm 193.04 cm (12/03/2011 14:23:00) (12/01/2011 17:46:00) (12/01/2011 17:06:00) Temperature Oral 98.9 DegF 99.2 DegF 97.9 DegF [96.4-99.1 DegF] (12/08/2011 11:20:00) *HI* (12/08/2011 05:13:00) (12/08/2011 08:00:00) Systolic Blood Pressure 119 mmHg 131 mmHg 119 mmHg [90-140 mmHg] (12/08/2011 11:20:00) (12/08/2011 08:00:00) (12/08/2011 05:13: 00) Diastolic Blood Pressure 49 mmHg 74 mmHg 58 mmHg [60-90 mmHg] *LOW* (12/08/2011 08:00:00) *LOW* (12/08/2011 11:20:00) (12/08/2011 05:13:00) Respiratory Rate [14-20 18 BRMIN 18 BRMIN 20 BRMIN BRMIN] (12/08/2011 11:20:00) (12/08/2011 08:00:00) (12/08/2011 05:13:00) Peripheral Pulse Rate 57 bpm 57 bpm 54 bpm [60-100 bpm] *LOW* *LOW* *LOW* (12/08/2011 11:20:00) (12/08/2011 08:00:00) (12/08/2011 05:13:00) Weight 119.091 kg 119.091 kg 119.091 kg (12/03/2011 14:23:00) (12/01/2011 17:46:00) (12/01/2011 17:06:00) Results BACTERIAL - SEROLOGY Most recent to [Reference Range]: 1 2 3 MRSA by PCR Negative 1 (12/05/2011 01:58:00) 1Interpretive Data: INTERPRETATION: Negative......No MRSA DNA detected by PCR Positive......MRSA DNA detected by PCR ASSAY LIMITATIONS: This is a screening test for colonization by MRSA. A positive test result indicates the patient is colonized by MRSA, but does not necessarily mean that an infection is present or that treatment is necessary. Likewise, a negative test does not exclude colonization or infection. Patients should be evaluated clinically for symptoms and signs of infection before making therapeutic decisions. Routine decolonization is discouraged and should only be considered for select patients after consultation with an infectious diseases specialist.BEDSIDE GLUCOSE TESTING Most recent to 1 2 3 [Reference Range]: Gluc POC Lifscn [70-99 177 mg/dL 2 174 mg/dL 3 197 mg/dL 4 mg/dL] *HI* *HI* *HI* (12/08/2011 11:28:00) (12/08/2011 06:12:00) (12/07/2011 21:31:00) Comment1 Notify RN/MD Notify RN/MD Notify RN/MD *NA* *NA* *NA* (12/08/2011 06:12:00) (12/07/2011 21:31:00) (12/07/2011 16:48:00) 2Interpretive Data: Upper Reportable Limit: 200 mg/dL.3Interpretive Data: Upper Reportable Limit: 200 mg/dL.4Interpretive Data: Upper Reportable Limit: 200 mg/dL.BLOOD BANK RESULTS Most recent to oldest [Reference Range]: 1 2 3 ABO/Rh AB POS *Unknown* (12/04/2011 00:15:00) Antibody Scrn Negative (12/04/2011 00:15:00) RBC product Product available (12/03/2011 17:56:00) CHEMISTRY Most recent to oldest 1 2 3 [Reference Range]: Sodium Lvl [135-145 mEq/L] 144 mEq/L 145 mEq/L 144 mEq/L (12/07/2011 02:08:00) (12/06/2011 00:10:00) (12/05/2011 01:58:00) Potassium Lvl [3.5-5.1 4.5 mEq/L 4.0 mEq/L 4.1 mEq/L mEq/L] (12/07/2011 02:08:00) (12/06/2011 00:10:00) (12/05/2011 01:58:00) Chloride Lvl [95-109 103 mEq/L 107 mEq/L 104 mEq/L mEq/L] (12/07/2011 02:08:00) (12/06/2011 00:10:00) (12/05/2011 01:58:00) CO2 [24-32 mEq/L] 31 mEq/L 28 mEq/L 27 mEq/L (12/07/2011 02:08:00) (12/06/2011 00:10:00) (12/05/2011 01:58:00) AGAP [10.0-20.0 mEq/L] 14.5 mEq/L 14.0 mEq/L 17.1 mEq/L (12/07/2011 02:08:00) (12/06/2011 00:10:00) (12/05/2011 01:58:00) Creatinine Lvl [0.5-1.4 1.3 mg/dL 1.3 mg/dL 1.4 mg/dL mg/dL] (12/07/2011 02:08:00) (12/06/2011 00:10:00) (12/05/2011 01:58:00) BUN [7-22 mg/dL] 25 mg/dL 28 mg/dL 24 mg/dL *HI* *HI* *HI* (12/07/2011 02:08:00) (12/06/2011 00:10:00) (12/05/2011 01:58:00) Glucose Lvl [70-99 mg/dL] 159 mg/dL 5 151 mg/dL 6 170 mg/dL 7 *HI* *HI* *HI* (12/07/2011 02:08:00) (12/06/2011 00:10:00) (12/05/2011 01:58:00) Calcium Lvl [8.5-10.5 8.7 mg/dL 8.1 mg/dL 9.0 mg/dL mg/dL] (12/07/2011 02:08:00) *LOW* (12/05/2011 01:58:00) (12/06/2011 00:10:00) Phosphorus [2.5-4.5 mg/dL] 3.4 mg/dL 4.0 mg/dL 2.7 mg/dL (12/06/2011 00:10:00) (12/05/2011 01:58:00) (12/01/2011 17:42:00) Magnesium Lvl [1.8-2.4 2.1 mg/dL 1.9 mg/dL 1.7 mg/dL mg/dL] (12/06/2011 00:10:00) (12/05/2011 01:58:00) *LOW* (12/01/2011 17:42:00) Ca Ion mgdL [4.65-5.20 4.68 mg/dL 5.04 mg/dL mg/dL] (12/06/2011 00:10:00) (12/05/2011 01:58:00) Ca Ion [1.16-1.30 mMol/L] 1.17 mMol/L 1.26 mMol/L (12/06/2011 00:10:00) (12/05/2011 01:58:00) Ca Norm [1.16-1.30 mMol/L] 1.19 mMol/L 1.25 mMol/L (12/06/2011 00:10:00) (12/05/2011 01:58:00) Ca Norm mgdL [4.65-5.20 4.76 mg/dL 5.00 mg/dL mg/dL] (12/06/2011 00:10:00) (12/05/2011 01:58:00) POC A Hct [42.0-54.0 %] 33.0 % 29.0 % 31.0 % *LOW* *LOW* *LOW* (12/04/2011 22:58:00) (12/04/2011 21:54:00) (12/04/2011 21:03:00) POC A Ca Ion [1.16-1.30 1.17 mMol/L 1.21 mMol/L 1.22 mMol/L mMol/L] (12/04/2011 22:58:00) (12/04/2011 21:54:00) (12/04/2011 21:03:00) POC A K [3.5-5.1 mEq/L] 3.5 mEq/L 3.5 mEq/L 3.4 mEq/L (12/04/2011 22:58:00) (12/04/2011 21:54:00) *LOW* (12/04/2011 21:03:00) POC A Source ART ART ART *NA* *NA* *NA* (12/04/2011 22:58:00) (12/04/2011 21:54:00) (12/04/2011 21:03:00) POC A Temp 37.0 DegC 37.0 DegC 37.0 DegC *NA* *NA* *NA* (12/04/2011 22:58:00) (12/04/2011 21:54:00) (12/04/2011 21:03:00) POC A pH [7.35-7.45] 7.41 7.45 7.46 (12/04/2011 22:58:00) (12/04/2011 21:54:00) *HI* (12/04/2011 21:03:00) POC A PCO2 [35-45 mmHg] 46 mmHg 41 mmHg 48 mmHg *HI* (12/04/2011 21:54:00) *HI* (12/04/2011 22:58:00) (12/04/2011 21:03:00) POC A PO2 [80-100 mmHg] 258 mmHg 299 mmHg 267 mmHg *HI* *HI* *HI* (12/04/2011 22:58:00) (12/04/2011 21:54:00) (12/04/2011 21:03:00) POC A HCO3 [22-26 mMol/L] 29 mMol/L 29 mMol/L 34 mMol/L *HI* *HI* *HI* (12/04/2011 22:58:00) (12/04/2011 21:54:00) (12/04/2011 21:03:00) POC A BE [-2-2 mMol/L] 4 mMol/L 4 mMol/L 9 mMol/L *HI* *HI* *HI* (12/04/2011 22:58:00) (12/04/2011 21:54:00) (12/04/2011 21:03:00) POC A O2 Sat [95.0-100.0 100.0 % 100.0 % 100.0 % %] (12/04/2011 22:58:00) (12/04/2011 21:54:00) (12/04/2011 21:03:00) POC A Glu [70-99 mg/dL] 138 mg/dL 104 mg/dL 103 mg/dL *HI* *HI* *HI* (12/04/2011 22:58:00) (12/04/2011 21:54:00) (12/04/2011 21:03:00) POC A LA [0.5-2.2 mMol/L] 1.6 mMol/L 1.2 mMol/L 1.3 mMol/L (12/04/2011 22:58:00) (12/04/2011 21:54:00) (12/04/2011 21:03:00) POC A Na [135-145 mEq/L] 139 mEq/L 140 mEq/L 137 mEq/L (12/04/2011 22:58:00) (12/04/2011 21:54:00) (12/04/2011 21:03:00) 5Interpretive Data: Adult reference range values reflect the clinical guidelines of the [place] [employer].6Interpretive Data: Adult reference range values reflect the clinical guidelines of the [place] [employer].7Interpretive Data: Adult reference range values reflect the clinical guidelines of the [place] [employer].HEMATOLOGY Most recent to oldest 1 2 3 [Reference Range]: WBC [3.7-10.4 K/CMM] 13.2 K/CMM 11.9 K/CMM 10.3 K/CMM *HI* *HI* (12/05/2011 01:58:00) (12/07/2011 02:08:00) (12/06/2011 00:10:00) RBC [4.70-6.10 M/CMM] 3.40 M/CMM 3.30 M/CMM 3.37 M/CMM *LOW* *LOW* *LOW* (12/07/2011 02:08:00) (12/06/2011 00:10:00) (12/05/2011 01:58:00) Hgb [14.0-18.0 g/dL] 10.6 g/dL 10.4 g/dL 10.4 g/dL *LOW* *LOW* *LOW* (12/07/2011 02:08:00) (12/06/2011 00:10:00) (12/05/2011 01:58:00) Hct [42.0-54.0 %] 31.9 % 30.9 % 31.7 % *LOW* *LOW* *LOW* (12/07/2011 02:08:00) (12/06/2011 00:10:00) (12/05/2011 01:58:00) MCV [80.0-94.0 fL] 93.7 fL 93.8 fL 94.1 fL (12/07/2011 02:08:00) (12/06/2011 00:10:00) *HI* (12/05/2011 01:58:00) MCH [27.0-31.0 pg] 31.1 pg 31.5 pg 30.9 pg *HI* *HI* (12/05/2011 01:58:00) (12/07/2011 02:08:00) (12/06/2011 00:10:00) MCHC [32.0-36.0 g/dL] 33.2 g/dL 33.5 g/dL 32.8 g/dL (12/07/2011 02:08:00) (12/06/2011 00:10:00) (12/05/2011 01:58:00) RDW [11.5-14.5 %] 17.0 % 16.1 % 16.1 % *HI* *HI* *HI* (12/07/2011 02:08:00) (12/06/2011 00:10:00) (12/05/2011 01:58:00) Platelet [133-450 K/CMM] 133 K/CMM 118 K/CMM 119 K/CMM (12/07/2011 02:08:00) *LOW* *LOW* (12/06/2011 00:10:00) (12/05/2011 21:02:00) MPV [7.4-10.4 fL] 9.4 fL 9.4 fL 7.9 fL (12/07/2011 02:08:00) (12/06/2011 00:10:00) (12/05/2011 01:58:00) Segs [45.0-75.0 %] 88.5 % 88.6 % 90.2 % *HI* *HI* *HI* (12/07/2011 02:08:00) (12/06/2011 00:10:00) (12/05/2011 01:58:00) Lymphocytes [20.0-40.0 %] 5.8 % 5.5 % 6.5 % *LOW* *LOW* *LOW* (12/07/2011 02:08:00) (12/06/2011 00:10:00) (12/05/2011 01:58:00) Monocytes [2.0-12.0 %] 5.7 % 5.8 % 3.1 % (12/07/2011 02:08:00) (12/06/2011 00:10:00) (12/05/2011 01:58:00) Eosinophils [0.0-4.0 %] 0.0 % 0.0 % 0.2 % (12/07/2011 02:08:00) (12/06/2011 00:10:00) (12/05/2011 01:58:00) Basophils [0.0-1.0 %] 0.0 % 0.1 % 0.0 % (12/07/2011 02:08:00) (12/06/2011 00:10:00) (12/05/2011 01:58:00) Segs-Bands # [1.5-8.1 11.7 K/CMM 10.5 K/CMM 9.3 K/CMM K/CMM] *HI* *HI* *HI* (12/07/2011 02:08:00) (12/06/2011 00:10:00) (12/05/2011 01:58:00) Lymphocytes # [1.0-5.5 0.8 K/CMM 0.7 K/CMM 0.7 K/CMM K/CMM] *LOW* *LOW* *LOW* (12/07/2011 02:08:00) (12/06/2011 00:10:00) (12/05/2011 01:58:00) Monocytes # [0.0-0.8 0.8 K/CMM 0.7 K/CMM 0.3 K/CMM K/CMM] (12/07/2011 02:08:00) (12/06/2011 00:10:00) (12/05/2011 01:58:00) Eosinophils # [0.0-0.5 0.0 K/CMM 0.0 K/CMM 0.0 K/CMM K/CMM] (12/07/2011 02:08:00) (12/06/2011 00:10:00) (12/05/2011 01:58:00) Basophils # [0.0-0.2 0.0 K/CMM 0.0 K/CMM 0.0 K/CMM K/CMM] (12/07/2011 02:08:00) (12/06/2011 00:10:00) (12/05/2011 01:58:00) Polychrom [None Seen] Slight (12/04/2011 16:00:00) Hypochrom [None Seen] Slight (12/04/2011 16:00:00) Target Cell [None Seen] Slight *ABN* (12/04/2011 16:00:00) Elliptocyte [None Seen] Slight *ABN* (12/04/2011 16:00:00) Plt Morph Normal (12/04/2011 16:00:00) PT [12.0-14.7 seconds] 15.0 seconds 14.7 seconds 14.0 seconds *HI* (12/05/2011 01:58:00) (12/04/2011 16:00:00) (12/05/2011 09:11:00) INR [0.85-1.17] 1.18 8 1.15 9 1.08 10 *HI* (12/05/2011 01:58:00) (12/04/2011 16:00:00) (12/05/2011 09:11:00) PTT [22.9-35.8 seconds] 24.0 seconds 11 24.4 seconds 12 23.5 seconds 13 (12/05/2011 09:11:00) (12/05/2011 01:58:00) (12/04/2011 16:00:00) 8Interpretive Data: RECOMMENDED RANGES FOR PROTIME INR: 2.0-3.0 for most medical and surgical thromboembolic states. 2.5-3.5 for artificial heart valves and recurrent embolism. INR SHOULD BE USED ONLY FOR PATIENTS ON STABLE ANTICOAGULANT THERAPY.9Interpretive Data: RECOMMENDED RANGES FOR PROTIME INR: 2.0-3.0 for most medical and surgical thromboembolic states. 2.5-3.5 for artificial heart valves and recurrent embolism. INR SHOULD BE USED ONLY FOR PATIENTS ON STABLE ANTICOAGULANT THERAPY.10Interpretive Data: RECOMMENDED RANGES FOR PROTIME INR: 2.0-3.0 for most medical and surgical thromboembolic states. 2.5-3.5 for artificial heart valves and recurrent embolism. INR SHOULD BE USED ONLY FOR PATIENTS ON STABLE ANTICOAGULANT THERAPY.11Interpretive Data: Heparin Therapeutic Range: 57 - 92 [id number] Data: Heparin Therapeutic Range: 57 - 92 [id number] Data: Heparin Therapeutic Range: 57 - 92 Seconds
--- OUTSIDE RECORDS SUMMARY | 2019-01-23 09:59 | XMS REPORT | CCD ---
:1935 Author Organization [facility] [place] Care Team Providers Name Role Phone Arnaldo Morrison Consulting Provider Allergies, Adverse Reactions, Alerts Substance Reaction Status Bactrim hives Active sulfa drugs Active Problem List Condition Effective Dates Status AF - Atrial fibrillation Active Cardiac catheterization 04/28/2011 Active Chest pain < 12/08/2011 Inactive CHF - Congestive heart failure Resolved Cough < 12/08/2011 Inactive Dizziness Active DVT - Deep vein thrombosis of lower limb Resolved Fusion Active HTN - Hypertension Resolved Nausea < 12/08/2011 Inactive Pain Active Medications Medication Instructions Start Date End Date Status Omnipaque 300 100 mL, 400 ml/hr, Route: IV, Drug Form: 07/11/20122012 Ordered SOLN, ONCE, Start date: 07/11/12 11:40:00, Stop date: 07/11/12 11:40:00 Omnipaque 300 100 mL, 400 ml/hr, Route: IV, Drug Form: 07/11/20122012 Ordered SOLN, ONCE, Start date: 07/11/12 12:00:00, Stop date: 07/11/12 12:00:00
--- OUTSIDE RECORDS SUMMARY | 2019-01-23 09:59 | XMS REPORT | CCD ---
:1935 Author Organization [facility] Care Team Providers Name Role Phone Arnaldo Morrison Consulting Provider Allergies, Adverse Reactions, Alerts Substance Reaction Status Bactrim hives Active sulfa drugs Active Problem List Condition Effective Dates Status AF - Atrial fibrillation Active Atrial fibrillation Active Cardiac catheterization 04/28/2011 Active Chest pain < 12/08/2011 Inactive CHF - Congestive heart failure Resolved Cough < 12/08/2011 Inactive Diabetes mellitus Active Dizziness Active DVT - Deep vein thrombosis of lower limb Resolved Fusion Active HTN - Hypertension Active Nausea < 12/08/2011 Inactive Pain Active Sleep apnea Active Medications Medication Instructions Start Date End Date Status [place] 10/325 oral tablet PO, PRN, Substitution 07/20/2012 Ordered Allowed, Maintenance Protonix 40 mg oral enteric PO, Daily, Substitution 07/20/2012 Ordered coated tablet Allowed enalapril 5 mg oral tablet PO, BID, Substitution Allowed 07/20/2012 Ordered Coumadin 4 mg oral tablet PO, Daily, Substitution 07/20/2012 Ordered Allowed Vital Signs Most recent to oldest [Reference Range]: 1 Height 193.04 cm (07/20/2012 15:49:00) Weight 122.273 kg (07/20/2012 15:49:00) Results Microbiology Reports PROCEDURE:Culture: AFB w/Smear STATUS: In Progress BODY SITE: Lung RLL COLLECTED DATE/TIME: 07/21/2012 12:35:00 SOURCE: Bronchial Washing FREE TEXT SOURCE: PRELIMINARY REPORTS Preliminary ReportCulture In ProgressSTAIN REPORTS Stain ReportNo Acid Fast Bacilli Seen On Smear PROCEDURE: Culture: CMV (Early Antigen) STATUS: In Progress BODY SITE: Lung RLL COLLECTED DATE/TIME: 07/21/2012 12:35:00 SOURCE: Bronchial Washing FREE TEXT SOURCE: [facility] PRELIMINARY REPORTS Preliminary ReportCulture In Progress PROCEDURE:Culture: Fungal w/Smear STATUS: In Progress BODY SITE: Lung RLL COLLECTED DATE/TIME: 07/21/2012 12:35:00 SOURCE: Bronchial Washing FREE TEXT SOURCE: PRELIMINARY REPORTS Preliminary ReportCulture In ProgressSTAIN REPORTS Stain ReportNo Yeast Or Fungal Elements Seen PROCEDURE: Culture: Herpes Simplex Virus STATUS: In Progress BODY SITE: Lung RLL COLLECTED DATE/TIME: 07/21/2012 12:35:00 SOURCE: Bronchial Washing FREE TEXT SOURCE: [facility] PRELIMINARY REPORTS Preliminary ReportCulture In Progress PROCEDURE:Culture: Respiratory w/Gram Stain STATUS: In Progress BODY SITE: Lung RLL COLLECTED DATE/TIME: 07/21/2012 12:35:00 SOURCE: Bronchial Washing FREE TEXT SOURCE: PRELIMINARY REPORTS Preliminary ReportNo Growth; HoldingSTAIN REPORTS Stain ReportRare WBC's No Organisms Seen PROCEDURE:Culture: Viral Complete STATUS: In Progress BODY SITE: Lung RLL COLLECTED DATE/TIME: 07/21/2012 12:35:00 SOURCE: Bronchial Washing FREE TEXT SOURCE: [facility] PRELIMINARY REPORTS Preliminary ReportCulture In Progress Procedures Procedures Date Related Diagnosis IVC - Insertion of inferior vena caval filter Procedure on back 1 1states "back surgery"
--- OUTSIDE RECORDS SUMMARY | 2019-01-23 10:00 | XMS REPORT | Summary of Care ---
:1935 Author Encounter [facility] Alyson(GHAZALA) [id number] Date(s): 02/25/14 - 03/05/[address] Discharge Disposition: Prison Care Physician Attending: Bari Cox MD Physician Admitting: Bari Cox MD Reason for Visit MULTIFOCAL PNEUMONIA, HEMOPTYSIS, ACS, CHEST PAIN Vital Signs Most recent to oldest 1 2 3 [Reference Range]: Height 193.04 cm 193.04 cm (02/26/14 2:14 AM) (02/25/14 6:21 PM) Current Weight 121.409 kg 128.6 kg (03/05/14 5:39 AM) (02/28/14 5:16 AM) Temperature Oral [96.4-99.1 98.1 DegF 98.1 DegF 98.1 DegF DegF] (03/05/14 7:15 PM) (03/05/14 3:12 PM) (03/05/14 11:21 AM) Systolic Blood Pressure 116 mmHg 136 mmHg 124 mmHg [90-140 mmHg] (03/05/14 7:15 PM) (03/05/14 3:12 PM) (03/05/14 11:21 AM) Diastolic Blood Pressure 54 mmHg 59 mmHg 60 mmHg [60-90 mmHg] *LOW* *LOW* (03/05/14 11:21 AM) (03/05/14 7:15 PM) (03/05/14 3:12 PM) Respiratory Rate [14-20 18 BRMIN 20 BRMIN 20 BRMIN BRMIN] (03/05/14 7:15 PM) (03/05/14 3:12 PM) (03/05/14 11:21 AM) Peripheral Pulse Rate 61 bpm 54 bpm 55 bpm [60-100 bpm] (03/05/14 7:15 PM) *LOW* *LOW* (03/05/14 3:12 PM) (03/05/14 11:21 AM) Weight 127.1 kg 126.3 kg 117.727 kg (02/27/14 5:20 AM) (02/26/14 2:14 AM) (02/25/14 6:21 PM) Body Mass Index 33.89 m2 31.59 m2 (02/26/14 2:14 AM) (02/25/14 6:21 PM) Problem List Condition Effective Dates Status Health Status Informant AF - Atrial fibrillation(Confirmed) Active Asbestosis(Confirmed) Active Atrial fibrillation(Confirmed) Active Cardiac catheterization(Confirmed) 04/28/11 Active CHF - Congestive heart Active failure(Confirmed) Diabetes mellitus(Confirmed)1 Active Dizziness(Confirmed) Active DVT - Deep vein thrombosis of lower Active limb(Confirmed) Fusion(Confirmed) Active Gout(Confirmed) Active HTN - Hypertension(Confirmed) Active OK (myocardial infarction)(Confirmed) Active Monoclonal gammopathy(Confirmed)2 Active Pain(Confirmed) Active Sleep apnea(Confirmed) Active 1border [id number] platelets Allergies, Adverse Reactions, Alerts Substance Reaction Severity Status Bactrim hives Severe Active Plavix Active sulfa drugs Active Medications 1/2 NS 500 mL 500 mL, Rate: 75 ml/hr, Infuse over: 6.7 hr, Route: IV, Dosing Weight 127.1 kg, Total Volume: 500, Start date: 02/28/14 9:08:00, Duration: 6 hr, Stop date: 15:07:00 Start Date: 02/28/14 Stop Date: 02/28/14 Status: Completedacetylcysteine 20% inhalation solution 600 mg, 3 mL, Route: NEB, Drug Form: SOLN, Dosing Weight 126.3, kg, RQID, Start date: 02/26/14 19:00:00, Duration: 30 day, Stop date: 03/28/14 15:00:00 Start Date: 02/26/14 Stop Date: 03/02/14 Status: Discontinuedallopurinol 100 mg, 1 tab, Route: PO, Drug form: TAB, Daily, Dosing Weight 126.3, kg, Start date: 02/27/14 9:00:00, Duration: 30 day, Stop date: 03/28/14 9:00:00 Notes: (Same as: Zyloprim) Start Date: 02/27/14 Stop Date: 03/05/14 Status: Discontinuedallopurinol 100 mg oral tablet 100 mg=1 tab, PO, Daily, 0 Refill(s) Start Date: 02/26/14 Status: OrderedALPRAZOLam 0.5 mg, 1 tab, Route: PO, Drug form: TAB, Bedtime, Dosing Weight 126.3, kg, PRN as needed for anxiety, Start date: 02/26/14 13:23:00, Stop date: 03/28/14 13:22: 00 Notes: With food or milk(Same as: Xanax) Start Date: 02/26/14 Stop Date: 03/05/14 Status: DiscontinuedAMIODarone 200 mg, Route: PO, Drug form: TAB, BID, Dosing Weight 126.3, kg, Start date: 17:00:00, Duration: 30 day, Stop date: 03/28/14 9:00:00 Start Date: 02/26/14 Stop Date: 02/26/14 Status: DeletedAMIODarone 200 mg, Route: PO, Drug form: TAB, BID, Dosing Weight 126.3, kg, Start date: 17:00:00, Duration: 30 day, Stop date: 03/28/14 9:00:00 Start Date: 02/26/14 Stop Date: 02/26/14 Status: DeletedAMIODarone 200 mg oral tablet 200 mg=1 tab, PO, BID, 0 Refill(s) Start Date: 02/26/14 Status: Orderedaspirin 325 mg, 1 tab, Route: PO, Drug form: TAB, Daily, Dosing Weight 117.727, kg, Priority: STAT, Start date: 02/26/14 2:34:00, Duration: 30 day, Stop date: 03/27 9:00:00 Notes: Take with food. Start Date: 02/26/14 Stop Date: 03/05/14 Status: Discontinuedaspirin 324 mg, 4 tab, Route: CHEW, Drug form: CHEWTAB, ONCE, Dosing Weight 117.727, kg , Priority: STAT, Start date: 02/26/14 0:28:00, Stop date: 02/26/14 0:28:00 Notes: Take with food. Start Date: 02/26/14 Stop Date: 02/26/14 Status: Completedaspirin 325 mg tablet, enteric coated 325 mg, PO, Daily, # 100 tab, 0 Refill(s) Start Date: 03/05/14 Status: Orderedatorvastatin 40 mg, Route: PO, Drug form: TAB, Bedtime, Dosing Weight 126.3, kg, Start date: 02/26/14 21:00:00, Duration: 30 day, Stop date: 03/27/14 21:00:00 Start Date: 02/26/14 Stop Date: 02/26/14 Status: Deletedatorvastatin 40 mg, 2 tab, Route: PO, Drug form: TAB, Bedtime, Dosing Weight 126.3, kg, Start date: 02/26/14 21:00:00, Duration: 30 day, Stop date: 03/27/14 21:00:00 Notes: (Same As: Lipitor) Start Date: 02/26/14 Stop Date: 03/05/14 Status: Discontinuedatorvastatin 40 mg oral tablet 40 mg=1 tab, PO, Bedtime, 0 Refill(s) Start Date: 02/26/14 Status: Orderedazithromycin + Sodium Chloride 0.9% IV 250 mL 500 mg, Route: IVPB, [id number], Dosing Weight 126.3, kg, Start date: 02/26/14 18: 00:00, Duration: 30 day, Stop date: 03/27/14 18:00:00 Notes: (Same As: Zithromax IV) Start Date: 02/26/14 Stop Date: 03/05/14 Status: DiscontinuedBD Normal Saline Flush 10 mL, Route: IVP, Drug Form: INJ, PRN, PRN Line Flush, Start date: 02/26/14 2: 42:00, Duration: 30 day, Stop date: 03/28/14 1:41:00 Notes: (Same as: BD Posiflush) Start Date: 02/26/14 Stop Date: 03/05/14 Status: DiscontinuedBumex 1 mg, 4 mL, Route: IVP, Drug form: INJ, ONCE, Dosing Weight 127.1, kg, Start date: 03/04/14 12:43:00, Stop date: 03/04/14 12:43:00 Notes: (Same As: Bumex) Start Date: 03/04/14 Stop Date: 03/04/14 Status: Completedcarvedilol 12.5 mg, Route: PO, Drug form: TAB, BID, Dosing Weight 126.3, kg, Start date: 17:00:00, Duration: 30 day, Stop date: 03/28/14 9:00:00 Start Date: 02/26/14 Stop Date: 02/26/14 Status: Deletedcarvedilol 12.5 mg, Route: PO, Drug form: TAB, BID, Dosing Weight 126.3, kg, Start date: 17:00:00, Duration: 30 day, Stop date: 03/28/14 9:00:00 Start Date: 02/26/14 Stop Date: 02/26/14 Status: Deletedcarvedilol 12.5 mg oral tablet 12.5 mg=1 tab, PO, BID, 0 Refill(s) Start Date: 02/26/14 Status: OrderedcefTRIAXone + Sodium Chloride 0.9% IV 100 mL 1 gm, Route: IVPB, [id number], Dosing Weight 126.3, kg, Start date: 02/26/14 18:00: 00, Duration: 30 day, Stop date: 03/27/14 18:00:00 Notes: (Same As: Rocephin). Use with 100ml NS mini-bag PLUS and infuse over 30 min Start Date: 02/26/14 Stop Date: 03/05/14 Status: DiscontinuedCombivent inhalation aerosol with adapter 2 puff, Route: INHALER, Drug Form: AERO, Dosing Weight 126.3, kg, BID, PRN Dyspnea, Start date: 02/26/14 13:23:00, Stop date: 03/28/14 13:22:00 Notes: Same as: Combivent Respimat Start Date: 02/26/14 Stop Date: 03/05/14 Status: DiscontinuedCordarone 200 mg, 1 tab, Route: PO, Drug form: TAB, BID, Start date: 02/26/14 13:10:00, Duration: 30 day, Stopdate: 03/28/14 9:00:00 Notes: (Same as: Cordarone) Start Date: 02/26/14 Stop Date: 03/05/14 Status: DiscontinuedCoreg 12.5 mg, 1 tab, Route: PO, Drug form: TAB, Q12H, Start date: 02/26/14 21:00:00, Stop date: 03/28/14 9:00:00 Notes: Give with food. (Same As: Coreg) Start Date: 02/26/14 Stop Date: 03/05/14 Status: DiscontinuedCoreg 12.5 mg, 1 tab, Route: PO, Drug form: TAB, Q12H, Start date: 02/26/14 13:09:00, Duration: 30 day, Stop date: 03/28/14 9:00:00 Notes: Give with food. (Same As: Coreg) Start Date: 02/26/14 Stop Date: 02/26/14 Status: DiscontinuedDiovan 160 mg, 1 tab, Route: PO, Drug form: TAB, Daily, Dosing Weight 127.1, kg, Start date: 03/02/14 13:17:00, Duration: 30 day, Stop date: 04/01/14 9:00:00 Notes: Same as Diovan Start Date: 03/02/14 Stop Date: 03/05/14 Status: DiscontinuedDuoNeb inhalation solution 3 ml, Route: INHALATION, Drug Form: SOLN, Dosing Weight 126.3, kg, PRN, PRN Respiratory Protocol, Start date: 02/26/14 17:24:00, Duration: 30 day, Stop date : 03/28/14 16:23:00 Notes: (Same as: Duoneb) Start Date: 02/26/14 Stop Date: 03/05/14 Status: DiscontinuedDuoNeb inhalation solution 3 ml, Route: INHALATION, Drug Form: SOLN, Dosing Weight 126.3, kg, QID, Start date: 02/26/14 21:00:00, Duration: 30 day, Stop date: 03/28/14 17:00:00 Notes: (Same as: Duoneb) Start Date: 02/26/14 Stop Date: 03/02/14 Status: DiscontinuedDuoNeb inhalation solution 3 ml, Route: INHALATION, Drug Form: SOLN, Dosing Weight 126.3, kg, QID, PRN as needed for shortness of breath or wheezing, Start date: 03/02/14 10:05:18, Stop date: 03/28/14 17:00:00 Notes: (Same as: Duoneb) Start Date: 03/02/14 Stop Date: 03/05/14 Status: Discontinuedflumazenil 0.2 mg, 2 mL, Route: IVP, Drug form: INJ, PRN, Dosing Weight 127.1, kg, PRN Other -See Comment, Start date: 02/28/14 12:59:00, Duration: 1 doses or times, Stop date: Limited # of times Notes: (Same as: Romazicon) Start Date: 02/28/14 Stop Date: 03/05/14 Status: Discontinuedflumazenil 0.1 mg, 1 mL, Route: IVP, Drug form: INJ, Q5Min, Dosing Weight 127.1, kg, PRN Other -See Comment, Start date: 02/28/14 12:59:00, Duration: 30 day, Stop date: 03/30/14 11:58:00 Notes: (Same as: Romazicon) Start Date: 02/28/14 Stop Date: 03/05/14 Status: Discontinuedfurosemide 40 mg oral tablet 40 mg=1 tab, PO, BID, # 60 tab, 0 Refill(s) Start Date: 03/03/14 Status: Orderedgabapentin 400 mg oral capsule 400 mg=1 cap, PO, TID, # 90 cap, 0 Refill(s) Start Date: 03/04/14 Status: Orderedhomatropine-hydrocodone 5 mL, Route: PO, Drug Form: SYRP, Q6H, PRN Cough, Start date: 03/02/14 10:10:00 , Duration: 30 day, Stop date: 04/01/14 10:09:00 Notes: (Same as: Hycodan, Hydromet) Start Date: 03/02/14 Stop Date: 03/05/14 Status: DiscontinuedhydrALAZINE 50 mg oral tablet 50 mg, 1 tab, Route: PO, Drug form: TAB, Q12H, Dosing Weight 126.3, kg, Start date: 02/27/14 21:00:00, Duration: 30 day, Stop date: 03/29/14 9:00:00 Notes: (Same as: Apresoline) May interfere w/enteral feedings Take With Food Start Date: 02/27/14 Stop Date: 02/28/14 Status: DiscontinuedhydrALAZINE 50 mg oral tablet 50 mg, 1 tab, Route: PO, Drug form: TAB, Q8H, Dosing Weight 127.1, kg, Start date: 03/05/14 8:00:00,Duration: 30 day, Stop date: 04/04/14 0:00:00 Notes: (Same as: Apresoline) May interfere w/enteral feedings Take With Food Start Date: 03/05/14 Stop Date: 03/05/14 Status: DiscontinuedhydrALAZINE 50 mg oral tablet 50 mg, 1 tab, Route: PO, Drug form: TAB, Q6H, Dosing Weight 126.3, kg, Start date: 02/27/14 0:00:00,Duration: 30 day, Stop date: 03/28/14 18:00:00 Notes: (Same as: Apresoline) May interfere w/enteral feedings Take With Food Start Date: 02/27/14 Stop Date: 02/27/14 Status: DiscontinuedhydrALAZINE 50 mg oral tablet 50 mg=1 tab, PO, TID, # 90 tab, 0 Refill(s) Start Date: 03/05/14 Status: Orderedisosorbide dinitrate extended release 40 mg, 1 tab, Route: PO, Drug form: ERTAB, Q12H, Dosing Weight 126.3, kg, Start date: 02/26/14 21:00:00, Duration: 30 day, Stop date: 03/28/14 9:00:00 Notes: (Same as:Isordil) Take on empty stomach/ full glass of water. Do not crush. Start Date: 02/26/14 Stop Date: 02/28/14 Status: DiscontinuedLasix 20 mg, 2 mL, Route: IVP, Drug form: INJ, ONCE, Dosing Weight 127.1, kg, Priority : STAT, Start date: 03/01/14 11:52:00, Stop date: 03/01/14 11:52:00 Notes: (Same as: Lasix) Start Date: 03/01/14 Stop Date: 03/01/14 Status: CompletedLasix 40 mg, 1 tab, Route: PO, Drug form: TAB, BID, Dosing Weight 127.1, kg, Start date: 03/02/14 17:00:00, Duration: 30 day, Stop date: 04/01/14 9:00:00 Notes: (Same as: Lasix) May cause GI upset. Give with food or milk. Start Date: 03/02/14 Stop Date: 03/05/14 Status: DiscontinuedLasix 20 mg, 2 mL, Route: IVP, Drug form: INJ, Q12H, Dosing Weight 127.1, kg, Start date: 03/02/14 9:21:00, Duration: 30 day, Stop date: 04/01/14 9:00:00 Notes: (Same as: Lasix) Start Date: 03/02/14 Stop Date: 03/02/14 Status: Discontinuedmagnesium sulfate 2 gm, 50 mL, Route: IVPB, Drug form: INJ, ONCE, Dosing Weight 127.1, kg, Total dose=2 gm, Start date: 02/27/14 7:19:00, Duration: 1 doses or times, Stop date: 02/27/14 7:19:00 Start Date: 02/27/14 Stop Date: 02/27/14 Status: Completedmagnesium sulfate + Sodium Chloride 0.9% IV 100 mL 1 gm, 2 mL, Route: IVPB, ONCE, Dosing Weight 127.1, kg, Start date: 02/28/14 9: 06:00, Stop date: 02/28/14 9:06:00 Notes: (Same as: MgSO4) Start Date: 02/28/14 Stop Date: 02/28/14 Status: Completedmorphine Sulfate 4 mg, 1 mL, Route: IVP, Drug form: INJ, ONCE, Dosing Weight 117.727, kg, Priority: STAT, Start date:02/25/14 23:27:00, Stop date: 02/25/14 23:27:00 Notes: (Same as:MORPhine Sulfate) Start Date: 02/25/14 Stop Date: 02/26/14 Status: Completedmorphine Sulfate 2 mg, 1 mL, Route: IVP, Drug form: INJ, Q3H, Dosing Weight 126.3, kg, PRN Pain Score 4-6, Start date: 02/26/14 2:34:00, Duration: 30 day, Stop date: 03/28/14 2 :33:00 Notes: (Same as:MORPhine Sulfate) Start Date: 02/26/14 Stop Date: 03/05/14 Status: DiscontinuedMucomyst oral solution (mg) 600 mg, 3 mL, Route: PO, Drug form: SOLN, BID, Dosing Weight 126.3, kg, Priority : NOW, Start date: 02/26/14 17:10:00, Duration: 1 day, Stop date: 02/27/14 17:00 :00 Start Date: 02/26/14 Stop Date: 02/27/14 Status: Completednaloxone 0.1 mg, 0.25 mL, Route: IVP, Drug form: INJ, Q2MIN, Dosing Weight 127.1, kg, PRN Narcotic Reversal, Start date: 02/28/14 12:59:00, Duration: 4 doses or times , Stop date: Limited # of times Notes: (Same as: Narcan) Start Date: 02/28/14 Stop Date: 03/05/14 Status: DiscontinuedNeurontin 400 mg, 1 cap, Route: PO, Drug form: CAP, TID, Start date: 03/04/14 9:00:00, Duration: 30 day, Stop date: 04/02/14 17:00:00 Notes: (Same as: Neurontin) Start Date: 03/04/14 Stop Date: 03/05/14 Status: DiscontinuedNeurontin 400 mg oral capsule 400 mg, 1 cap, Route: PO, Drug form: CAP, BID, Dosing Weight 126.3, kg, Start date: 02/26/14 17:00:00, Duration: 30 day, Stop date: 03/28/14 9:00:00 Notes: (Same as: Neurontin) Start Date: 02/26/14 Stop Date: 03/03/14 Status: DiscontinuedNorvasc 10 mg, 1 tab, Route: PO, Drug form: TAB, Daily, Dosing Weight 127.1, kg, Start date: 03/02/14 9:00:00, Duration: 30 day, Stop date: 03/31/14 9:00:00 Notes: (Same as: Norvasc) Start Date: 03/02/14 Stop Date: 03/05/14 Status: DiscontinuedNorvasc 10 mg oral tablet 10 mg, PO, Daily, # 30 tab, 0 Refill(s) Start Date: 03/02/14 Status: Orderedondansetron 4 mg, 2 mL, Route: IVP, Drug form: INJ, Q8H, Dosing Weight 126.3, kg, PRN Nausea & Vomiting, Start date: 02/26/14 2:34:00, Duration: 30 day, Stop date : 03/28/14 2:33:00 Notes: (Same as: Zofran) Start Date: 02/26/14 Stop Date: 03/05/14 Status: Discontinuedpotassium chloride 20 mEq oral tablet, extended release 20 mEq, 1 tab, Route: PO, Drug form: ERTAB, ONCE, Dosing Weight 127.1, kg, Start date: 03/05/14 7:48:00, Stop date: 03/05/14 7:48:00 Notes: (Same as: K-Dur 20)"Do Not Crush" With food and full glass of water Start Date: 03/05/14 Stop Date: 03/05/14 Status: CompletedPradaxa 150 mg, 1 cap, Route: PO, Drug form: CAP, Q12H, Dosing Weight 127.1, kg, See comments for contraindications, Start date: 03/03/14 9:00:00, Duration: 30 day, Stop date: 04/01/14 21:00:00 Notes: DO NOT break, chew or open capsules for administration. Start Date: 03/03/14 Stop Date: 03/03/14 Status: DiscontinuedProcrit (ESRD) 10,000 unit, 1 mL, Route: IV, Drug form: INJ, Q-M-W-F, Dosing Weight 127.1, kg, Start date: 02/28/1417:00:00, Duration: 30 day, Stop date: 03/28/14 17:00:00 Notes: (Same as: Procrit) epoetin odttie 10,000 unit/1 ml VL Start Date: 02/28/14 Stop Date: 03/05/14 Status: DiscontinuedProtonix 40 mg, 1 tab, Route: PO, Drug form: ECTAB, Daily, Dosing Weight 126.3, kg, Start date: 02/27/14 9:00:00, Duration: 30 day, Stop date: 03/28/14 9:00:00 Notes: Tablet should not be chewed or crushed.(Same as: Protonix) Start Date: 02/27/14 Stop Date: 03/05/14 Status: DiscontinuedPulmicort Respules 0.5 mg/2 mL inhalation suspension 0.5 mg, 2 mL, Route: NEB, Drug form: SOLN, BID, Dosing Weight 126.3, kg, Start date: 02/27/14 9:00:00, Duration: 30 day, Stop date: 03/28/14 17:00:00 Notes: (Same As: Pulmicort) Start Date: 02/27/14 Stop Date: 03/02/14 Status: DiscontinuedRobitussin-AC oral syrup 5 ml, Route: PO, Drug Form: LIQ, Dosing Weight 126.3, kg, Q4H, PRN Cough, NOW, Start date: 02/26/14 17:24:00, Duration: 30 day, Stop date: 03/28/14 17:23:00 Notes: (Same As: Robitussin AC) Start Date: 02/26/14 Stop Date: 03/05/14 Status: DiscontinuedRobitussin-AC oral syrup 5 mL, PO, Q4H, Cough, # 120 mL, 0 Refill(s) Start Date: 03/02/14 Status: OrderedSodium Chloride 0.9% IV 250 mL, Route: IVPB, Start date: 02/26/14 2:42:00, Duration: 30 day, Stop date: 03/28/14 1:41:00, PRN Line Flush Start Date: 02/26/14 Stop Date: 03/05/14 Status: DiscontinuedSymbicort 160/4.5 inhalation aerosol with adapter 2 inhalation, Route: INHALATION, Drug Form: AERO/A, Dosing Weight 127.1, kg, Q12H, Start date: 03/02/14 10:09:00, Duration: 30 day, Stop date: 04/01/14 9:00: 00 Notes: (Same as: Symbicort) Start Date: 03/02/14 Stop Date: 03/05/14 Status: DiscontinuedSymbicort 160/4.5 inhalation aerosol with adapter 2 inhalation, INHALATION, Q12H, # 10 gm, 0 Refill(s) Start Date: 03/03/14 Status: OrderedTessalon Perles 200 mg, 2 cap, Route: PO, Drug form: CAP, TID, Dosing Weight 127.1, kg, Start date: 02/27/14 17:00:00, Duration: 30 day, Stop date: 03/29/14 13:00:00 Notes: (Same As: Jessica Brooks)"Do Not Crush" Start Date: 02/27/14 Stop Date: 03/05/14 Status: Discontinuedtramadol 50 mg oral tablet 50 mg, 1 tab, Route: PO, Drug form: TAB, Q12H, Dosing Weight 126.3, kg, PRN as needed for pain, Start date: 02/26/14 13:24:00, Stop date: 03/28/14 13:23:00 Notes: Not to exceed 400mg/day. (Same As: Ultram) Start Date: 02/26/14 Stop Date: 03/05/14 Status: DiscontinuedTussionex Penn[employer]etic oral suspension, extended release 5 ml, Route: PO, Drug Form: SUSPER, Dosing Weight 127.1, kg, Q12H, PRN as needed for cough, Start date: 03/02/14 10:08:00, Duration: 30 day, Stop date: 10:07:00 Start Date: 03/02/14 Stop Date: 03/02/14 Status: Deletedvalsartan 160 mg oral tablet 160 mg=1 tab, PO, Daily, # 30 tab, 0 Refill(s) Start Date: 03/03/14 Stop Date: 03/05/14 Status: DiscontinuedVantin 200 mg oral tablet 200 mg=1 tab, PO, Q12H, # 14 tab, 0 Refill(s) Start Date: 03/02/14 Stop Date: 03/09/14 Status: Ordered Results ELECTROLYTES Most recent to oldest 1 2 3 [Reference Range]: Sodium Lvl [135-145 mEq/L] 140 mEq/L 141 mEq/L 146 mEq/L (03/05/14 5:15 AM) (03/04/14 5:10 AM) *HI* (03/03/14 6:05 AM) Potassium Lvl [3.5-5.1 3.4 mEq/L 3.5 mEq/L 3.6 mEq/L mEq/L] *LOW* (03/04/14 5:10 AM) (03/03/14 6:05 AM) (03/05/14 5:15 AM) Chloride Lvl [95-109 mEq/L] 102 mEq/L 105 mEq/L 109 mEq/L (03/05/14 5:15 AM) (03/04/14 5:10 AM) (03/03/14 6:05 AM) CO2 [24-32 mEq/L] 31 mEq/L 29 mEq/L 30 mEq/L (03/05/14 5:15 AM) (03/04/14 5:10 AM) (03/03/14 6:05 AM) AGAP [10.0-20.0 mEq/L] 10.4 mEq/L 10.5 mEq/L 10.6 mEq/L (03/05/14 5:15 AM) (03/04/14 5:10 AM) (03/03/14 6:05 AM) CHEM PANEL Most recent to oldest 1 2 3 [Reference Range]: Creatinine Lvl [0.5-1.4 1.9 mg/dL 1.7 mg/dL 1.7 mg/dL mg/dL] *HI* *HI* *HI* (03/05/14 5:15 AM) (03/04/14 5:10 AM) (03/03/14 6:05 AM) eGFR 38 mL/min/1.73m2 1 44 mL/min/1.73m2 2 44 mL/min/1.73m2 3 *NA* *NA* *NA* (03/05/14 5:15 AM) (03/04/14 5:10 AM) (03/03/14 6:05 AM) BUN [7-22 mg/dL] 13 mg/dL 12 mg/dL 13 mg/dL (03/05/14 5:15 AM) (03/04/14 5:10 AM) (03/03/14 6:05 AM) B/C Ratio [6-25] 9 9 (02/26/14 3:15 AM) (02/25/14 7:50 PM) Glucose Lvl [70-99 mg/dL] 80 mg/dL 4 84 mg/dL 5 90 mg/dL 6 (03/05/14 5:15 AM) (03/04/14 5:10 AM) (03/03/14 6:05 AM) Total Protein [6.4-8.4 g/dL] 6.9 g/dL 7.4 g/dL (02/26/14 3:15 AM) (02/25/14 7:50 PM) Albumin Lvl [3.5-5.0 g/dL] 3.2 g/dL 3.2 g/dL *LOW* *LOW* (02/26/14 3:15 AM) (02/25/14 7:50 PM) Globulin [2.0-4.0 g/dL] 3.7 g/dL 4.2 g/dL (02/26/14 3:15 AM) *HI* (02/25/14 7:50 PM) A/G Ratio [0.7-1.6] 0.9 0.8 (02/26/14 3:15 AM) (02/25/14 7:50 PM) Calcium Lvl [8.5-10.5 mg/dL] 8.4 mg/dL 8.3 mg/dL 8.5 mg/dL *LOW* *LOW* (03/03/14 6:05 AM) (03/05/14 5:15 AM) (03/04/14 5:10 AM) Magnesium Lvl [1.8-2.4 2.0 mg/dL 1.7 mg/dL 1.4 mg/dL mg/dL] (03/01/14 5:35 AM) *LOW* *LOW* (02/28/14 5:10 AM) (02/27/14 4:30 AM) ALT [0-65 unit/L] 13 unit/L 15 unit/L (02/26/14 3:15 AM) (02/25/14 7:50 PM) AST [0-37 unit/L] 20 unit/L 13 unit/L (02/26/14 3:15 AM) (02/25/14 7:50 PM) Alk Phos [39-136 unit/L] 70 unit/L 77 unit/L (02/26/14 3:15 AM) (02/25/14 7:50 PM) Bili Total [0.2-1.3 mg/dL] 0.8 mg/dL 0.6 mg/dL (02/26/14 3:15 AM) (02/25/14 7:50 PM) 1Result Comment: The eGFR is calculated using the CKD-EPI formula. In most young , healthy individualsthe eGFR will be >90 mL/min/1.73m2. [...] eGFR should be multiplied by the estimated BMI.2Result Comment: The eGFR is calculated using the [...] eGFR should be multiplied by the estimated BMI.4Interpretive Data: Adult reference range values reflect the clinical guidelines of the [place] [employer].5Interpretive Data: Adult reference range values reflect the clinical guidelines of the [place] [employer].6Interpretive Data: Adult reference range values reflect the clinical guidelines of the [place] [employer].CARDIAC ENZYMES Most recent to oldest 1 2 3 [Reference Range]: Total CK [12-191 unit/L] 74 unit/L 101 unit/L 100 unit/L (02/26/14 1:30 PM) (02/26/14 3:15 AM) (02/25/14 7:50 PM) CK MB [0.5-3.6 ng/mL] 1.6 ng/mL 1.9 ng/mL (02/26/14 3:15 AM) (02/25/14 7:50 PM) CK MB Index [0.0-2.5] 1.6 1.9 (02/26/14 3:15 AM) (02/25/14 7:50 PM) Troponin-I [0.00-0.40 0.46 ng/mL 0.37 ng/mL 0.38 ng/mL ng/mL] *HI* (02/26/14 3:15 AM) (02/25/14 7:50 PM) (02/26/14 1:30 PM) BNP [<=100 pg/mL] 412 pg/mL 7 441 pg/mL 8 *HI* *HI* (03/01/14 5:35 AM) (02/25/14 9:31 PM) 7Interpretive Data: Elevated results are in line with increasing severity of congestive heart failure. Minor elevations between 100 and 300 may be seen with Myocardial Ischemia, Sodium retaining drugs, and compensated/treated heart failure.8Interpretive Data: Elevated results are in line with increasing severity of congestive heart failure. Minor elevations between 100 and 300 may be seen with Myocardial Ischemia, Sodium retaining drugs, and compensated/treated heart failure.LIPIDS Most recent to oldest [Reference Range]: 1 2 3 CHD Risk [4.00-7.30] 1.89 *LOW* (02/27/14 4:30 AM) Chol [<=199 mg/dL] 70 mg/dL (02/27/14 4:30 AM) Trig [<=149 mg/dL] 50 mg/dL (02/27/14 4:30 AM) HDL [>=61 mg/dL] 37 mg/dL *LOW* (02/27/14 4:30 AM) LDL (Calculated) [<=99 mg/dL] 23 mg/dL (02/27/14 4:30 AM) VLDL 10 *NA* (02/27/14 4:30 AM) SPECIAL CHEMISTRY Most recent to oldest [Reference Range]: 1 2 3 HIPOLITO [8-52 unit/L] 19 unit/L (03/04/14 2:39 PM) ANEMIA STUDY Most recent to oldest [Reference Range]: 1 2 3 Iron [45-160 ug/dl] 44 ug/dl *LOW* (03/01/14 5:35 AM) Ferritin Lvl [22-275 ng/mL] 89 ng/mL (03/01/14 5:35 AM) % Satur Fe [12-57 %] 17 % (03/01/14 5:35 AM) UIBC [110-370 ug/dl] 208 ug/dl (03/01/14 5:35 AM) TIBC [228-428 ug/dl] 252 ug/dl (03/01/14 5:35 AM) THYROID PANEL Most recent to oldest [Reference Range]: 1 2 3 TSH [0.360-3.740 uIU/mL] 4.580 uIU/mL *HI* (03/04/14 2:39 PM) URINE AND STOOL Most recent to oldest [Reference Range]: 1 2 3 UA Turbidity [Clear] Clear (02/25/14 9:10 PM) UA Color [Yellow] Yellow *NA* (02/25/14 9:10 PM) UA pH [5.0-8.0] 5.5 (02/25/14 9:10 PM) UA Spec Grav [<=1.030] 1.015 (02/25/14 9:10 PM) UA Glucose [Negative] Negative (02/25/14 9:10 PM) UA Blood [Negative] Small *ABN* (02/25/14 9:10 PM) UA Ketones [Negative] Negative *NA* (02/25/14 9:10 PM) UA Protein [Negative] Negative (02/25/14 9:10 PM) UA Urobilinogen [0.1-1.0 EU/dL] 0.2 EU/dL (02/25/14 9:10 PM) UA Bili [Negative] Negative *NA* (02/25/14 9:10 PM) UA Leuk Est [Negative] Negative (02/25/14 9:10 PM) UA Nitrite [Negative] Negative (02/25/14 9:10 PM) UA Bacteria [None Seen] None Seen (02/25/14 9:10 PM) UA Sq Epi [Few] None Seen (02/25/14 9:10 PM) IMMUNOLOGY Most recent to oldest [Reference Range]: 1 2 3 PAO [Negative] Positive *ABN* (03/04/14 2:39 PM) PAO Titer [Negative] 1:40 *ABN* (03/04/14 2:39 PM) PAO Interp Pattern appears speckled *NA* (03/04/14 2:39 PM) RF Qnt [0-20 IU/mL] <10 IU/mL (03/04/14 2:39 PM) DNA Ab (DS) [Negative] Negative (03/04/14 2:39 PM) Sm Ab [<=0.9 AI] <0.2 AI (03/04/14 2:39 PM) MBA INTER[employer]IP Ab [<=0.9 AI] <0.2 AI (03/04/14 2:39 PM) SS-A (Ro) Ab [<=0.9 AI] <0.2 AI (03/04/14 2:39 PM) SS-B ([place]) Ab [<=0.9 AI] <0.2 AI (03/04/14 2:39 PM) HEMATOLOGY Most recent to oldest 1 2 3 [Reference Range]: WBC [3.7-10.4 K/CMM] 5.7 K/CMM 6.3 K/CMM 6.2 K/CMM (03/05/14 5:15 AM) (03/04/14 5:10 AM) (03/03/14 6:05 AM) RBC [4.70-6.10 M/CMM] 3.81 M/CMM 3.50 M/CMM 3.54 M/CMM *LOW* *LOW* *LOW* (03/05/14 5:15 AM) (03/04/14 5:10 AM) (03/03/14 6:05 AM) Hgb [14.0-18.0 g/dL] 11.1 g/dL 10.4 g/dL 10.4 g/dL *LOW* *LOW* *LOW* (03/05/14 5:15 AM) (03/04/14 5:10 AM) (03/03/14 6:05 AM) Hct [42.0-54.0 %] 34.5 % 31.4 % 32.0 % *LOW* *LOW* *LOW* (03/05/14 5:15 AM) (03/04/14 5:10 AM) (03/03/14 6:05 AM) MCV [80.0-94.0 fL] 90.6 fL 89.7 fL 90.5 fL (03/05/14 5:15 AM) (03/04/14 5:10 AM) (03/03/14 6:05 AM) MCH [27.0-31.0 pg] 29.2 pg 29.5 pg 29.4 pg (03/05/14 5:15 AM) (03/04/14 5:10 AM) (03/03/14 6:05 AM) MCHC [32.0-36.0 g/dL] 32.3 g/dL 32.9 g/dL 32.5 g/dL (03/05/14 5:15 AM) (03/04/14 5:10 AM) (03/03/14 6:05 AM) RDW [11.5-14.5 %] 16.7 % 16.4 % 17.2 % *HI* *HI* *HI* (03/05/14 5:15 AM) (03/04/14 5:10 AM) (03/03/14 6:05 AM) Platelet [133-450 K/CMM] 93 K/CMM 83 K/CMM 100 K/CMM *LOW* *LOW* *LOW* (03/05/14 5:15 AM) (03/04/14 5:10 AM) (03/03/14 6:05 AM) MPV [7.4-10.4 fL] 9.2 fL 8.8 fL 9.3 fL (03/05/14 5:15 AM) (03/04/14 5:10 AM) (03/03/14 6:05 AM) Segs [45.0-75.0 %] 65.1 % 67.4 % 68.5 % (03/05/14 5:15 AM) (03/04/14 5:10 AM) (03/03/14 6:05 AM) Lymphocytes [20.0-40.0 %] 23.4 % 22.2 % 20.6 % (03/05/14 5:15 AM) (03/04/14 5:10 AM) (03/03/14 6:05 AM) Monocytes [2.0-12.0 %] 6.9 % 5.7 % 5.2 % (03/05/14 5:15 AM) (03/04/14 5:10 AM) (03/03/14 6:05 AM) Eosinophils [0.0-4.0 %] 3.8 % 4.0 % 5.4 % (03/05/14 5:15 AM) (03/04/14 5:10 AM) *HI* (03/03/14 6:05 AM) Basophils [0.0-1.0 %] 0.8 % 0.7 % 0.3 % (03/05/14 5:15 AM) (03/04/14 5:10 AM) (03/03/14 6:05 AM) Segs-Bands # [1.5-8.1 K/CMM] 3.7 K/CMM 4.3 K/CMM 4.2 K/CMM (03/05/14 5:15 AM) (03/04/14 5:10 AM) (03/03/14 6:05 AM) Lymphocytes # [1.0-5.5 1.3 K/CMM 1.4 K/CMM 1.3 K/CMM K/CMM] (03/05/14 5:15 AM) (03/04/14 5:10 AM) (03/03/14 6:05 AM) Monocytes # [0.0-0.8 K/CMM] 0.4 K/CMM 0.4 K/CMM 0.3 K/CMM (03/05/14 5:15 AM) (03/04/14 5:10 AM) (03/03/14 6:05 AM) Eosinophils # [0.0-0.5 0.2 K/CMM 0.3 K/CMM 0.3 K/CMM K/CMM] (03/05/14 5:15 AM) (03/04/14 5:10 AM) (03/03/14 6:05 AM) Basophils # [0.0-0.2 K/CMM] 0.0 K/CMM 0.0 K/CMM 0.0 K/CMM (03/03/14 6:05 AM) (03/02/14 7:19 AM) (02/28/14 5:10 AM) PT [12.0-14.7 seconds] 16.9 seconds *HI* (02/25/14 7:50 PM) INR [0.85-1.17] 1.36 9 *HI* (02/25/14 7:50 PM) D-Dimer 0.81 ug/mL FEU 10 *NA* (02/25/14 7:50 PM) PTT [22.9-35.8 seconds] 42.2 seconds 11 *HI* (02/25/14 7:50 PM) 9Interpretive Data: RECOMMENDED RANGES FOR PROTIME INR: 2.0-3.0 for most medical and surgical thromboembolic states. 2.5-3.5 for artificial heart valves and recurrent embolism. INR SHOULD BE USED ONLY FOR PATIENTS ON STABLE ANTICOAGULANT THERAPY.10Interpretive Data: In DIC, quantitative D-Dimer is generally greater than 0.66 ug/mL FEU. Values of quantitative D-Dimer less than 0.40 ug/mL FEU have been reported to be associated with a low probability of deep vein thrombosis/pulmonary embolism. This test alone should not be used to rule out DVT/PE.11Interpretive Data: Heparin Therapeutic Range: 57 - 92 SecondsBACTERIAL - SEROLOGY Most recent to oldest [Reference Range]: 1 2 3 U S pneumo Ag [Negative] Negative (02/26/14 5:25 PM) VIRAL - SEROLOGY Most recent to oldest [Reference Range]: 1 2 3 Influ A [Negative] Negative (02/26/14 6:00 PM) Influ B [Negative] Negative 12 (02/26/14 6:00 PM) 12Interpretive Data: Influenza A&B Antigen: Due to the low sensitivity of this test a negative result does not exclude influenza virus infection. A diagnosis of influenza should be considered based on a patient's clinical presentation and empiric antiviral treatment should be considered, if indicated. If more conclusive testing is desired, follow-up confirmatory testing with either viral culture or PCR is warranted. Medications Administered During Your Visit No data available for this section Immunizations No data available for this section Social History Social History Type Response Alcohol Use: Current, Type: Beer, Frequency: 3-5 times per week Smoking Status Former smoker, Exposure to Tobacco Smoke None, Cigarette Smoking Last 365 Days Yes, Reg Smoking Cessation Counseling Yes1 1stop 37 yrs ago
--- OUTSIDE RECORDS SUMMARY | 2019-01-23 10:00 | XMS REPORT | Summary of Care ---
:1935 Author Encounter BARRON Shields(GHAZALA) [id number] Date(s): 01/26/14 - 01/28/[address] Discharge Disposition: Home Physician Attending: Bari Cox MD Physician Admitting: Bari Cox MD Reason for Visit A-FIB, TACHYCARDIA Vital Signs Most recent to oldest 1 2 3 [Reference Range]: Height 193.04 cm (01/26/14 4:56 AM) Current Weight 119.955 kg (01/26/14 4:49 AM) Temperature Oral [96.4-99.1 99 DegF 98.8 DegF 98.5 DegF DegF] (01/28/14 12:04 PM) (01/28/14 8:02 AM) (01/28/14 4:00 AM) Systolic Blood Pressure 132 mmHg 139 mmHg 120 mmHg [90-140 mmHg] (01/28/14 12:04 PM) (01/28/14 8:02 AM) (01/28/14 4:00 AM) Diastolic Blood Pressure 67 mmHg 71 mmHg 54 mmHg [60-90 mmHg] (01/28/14 12:04 PM) (01/28/14 8:02 AM) *LOW* (01/28/14 4:00 AM) Respiratory Rate [14-20 BRMIN] 18 BRMIN 18 BRMIN 20 BRMIN (01/28/14 12:04 PM) (01/28/14 8:02 AM) (01/28/14 4:00 AM) Peripheral Pulse Rate [60-100 67 bpm 60 bpm 62 bpm bpm] (01/28/14 12:04 PM) (01/28/14 8:02 AM) (01/28/14 4:00 AM) Weight 119.116 kg 119.801 kg (01/28/14 5:00 AM) (01/26/14 4:56 AM) Body Mass Index 32.15 m2 (01/26/14 4:56 AM) Problem List Condition Effective Dates Status Health Status Informant AF - Atrial fibrillation(Confirmed) Active Atrial fibrillation(Confirmed) Active Cardiac catheterization(Confirmed) 04/28/11 Active CHF - Congestive heart Resolved failure(Confirmed) Diabetes mellitus(Confirmed) Active Dizziness(Confirmed) Active DVT - Deep vein thrombosis of lower Resolved limb(Confirmed) Fusion(Confirmed) Active HTN - Hypertension(Confirmed) Active Pain(Confirmed) Active Sleep apnea(Confirmed) Active Allergies, Adverse Reactions, Alerts Substance Reaction Severity Status Bactrim hives Severe Active sulfa drugs Active Medications ALPRAZOLam 0.5 mg, 1 tab, Route: PO, Drug form: TAB, Bedtime, Dosing Weight 119.801, kg, PRN as needed for anxiety, Start date: 01/26/14 6:55:00, Duration: 30 day, Stop date: 02/25/14 6:54:00 Notes: With food or milk(Same as: Xanax) Start Date: 01/26/14 Stop Date: 01/28/14 Status: DiscontinuedAMIODarone + Dextrose 5% in Water 100 mL 150 mg, 3 mL, Route: IVPB, ONCE, Dosing Weight 119.801, kg, Priority: NOW, Start date: 01/26/14 16:29:00, Stop date: 01/26/14 16:29:00 Notes: Central administration only for concentrations > 2 mg/ml."Recommendation : Use an in-line filter during administration for continuous infusions to reduce the incidence of phlebitis" (Same as: Cordarone) Start Date: 01/26/14 Stop Date: 01/26/14 Status: CompletedAMIODarone 200 mg oral tablet 200 mg=1 tab, PO, BID, # 60 tab, 0 Refill(s) Start Date: 01/28/14 Status: OrderedAMIODarone 900 mg in D5W 500 ml IV 900 mg + Dextrose 5% in Water IV 482 mL 900 mg, 18 mL, Rate: 1 mg/min for 6 hours, then reduce to 0.5 mg/min, Dosing Weight 119.801, kg, Route: IV, Total Volume: 500, Start Date: 01/26/14 16:30:00 , Duration: 30 day, Stop date: 02/25/14 16:29:00, Replace Every: 24 hr Notes: Central administration only for concentration > 2 mg/ml. Use Glass Bottle or Non PVC Bag"Use 0.22 micron in-line filter" Start Date: 01/26/14 Stop Date: 01/27/14 Status: Discontinuedaspirin 81 mg tablet, enteric coated 81 mg, 1 tab, Route: PO, Drug form: ECTAB, Daily, Dosing Weight 119.801, kg, Start date: 01/26/14 9:00:00, Duration: 30 day, Stop date: 02/24/14 9:00:00 Notes: Do not crush or chew.(Same As: Ecotrin) Start Date: 01/26/14 Stop Date: 01/27/14 Status: Discontinuedatorvastatin 20 mg oral tablet 40 mg=2 tab, PO, Bedtime, # 60 tab, 0 Refill(s) Start Date: 01/28/14 Status: OrderedBD Normal Saline Flush 10 mL, Route: IVP, Drug Form: INJ, PRN, PRN Line Flush, Start date: 01/26/14 6: 20:00, Duration: 30 day, Stop date: 02/25/14 6:19:00 Notes: (Same as: BD Posiflush) Start Date: 01/26/14 Stop Date: 01/28/14 Status: Discontinuedcarvedilol 12.5 mg oral tablet 12.5 mg=1 tab, PO, BID, # 60 tab, 0 Refill(s) Start Date: 01/28/14 Status: OrderedColace 100 mg oral capsule 100 mg, 1 cap, Route: PO, Drug form: CAP, BID, Dosing Weight 119.801, kg, PRN Constipation, Start date: 01/27/14 10:38:00, Duration: 30 day, Stop date: 10:37:00 Notes: (Same as: Colace) (Do Not Crush) Start Date: 01/27/14 Stop Date: 01/28/14 Status: DiscontinuedCombivent inhalation aerosol with adapter INHALER, SOB, 0 Refill(s) Start Date: 01/26/14 Status: OrderedCordarone 200 mg, 1 tab, Route: PO, Drug form: TAB, BID, Start date: 01/27/14 9:00:00, Duration: 30 day, Stop date: 02/25/14 17:00:00 Notes: (Same as: Cordarone) Start Date: 01/27/14 Stop Date: 01/28/14 Status: DiscontinuedCoreg 25 mg, 1 tab, Route: PO, Drug form: TAB, BID, Dosing Weight 119.801, kg, Start date: 01/26/14 9:00:00, Duration: 30 day, Stop date: 02/24/14 17:00:00 Notes: Give with food. (Same As: Coreg) Start Date: 01/26/14 Stop Date: 01/27/14 Status: DiscontinuedCoreg 12.5 mg, 1 tab, Route: PO, Drug form: TAB, BID, Dosing Weight 119.801, kg, Start date: 01/27/14 9:00:00, Duration: 30 day, Stop date: 02/25/14 17:00:00 Notes: Give with food. (Same As: Coreg) Start Date: 01/27/14 Stop Date: 01/28/14 Status: DiscontinuedCoreg 25 mg oral tablet 25 mg=1 tab, PO, BID, # 180 tab, 0 Refill(s) Start Date: 01/26/14 Stop Date: 01/28/14 Status: Discontinueddigoxin 125 microgram, 1 tab, Route: PO, Drug form: TAB, Daily, Dosing Weight 119.801, kg, Start date: 01/26/14 9:00:00, Duration: 30 day, Stop date: 02/24/14 9:00:00 Notes: Take on an Empty Stomach (Same as: Lanoxin) Start Date: 01/26/14 Stop Date: 01/26/14 Status: Discontinueddigoxin 125 microgram, PO, Daily, 0 Refill(s) Start Date: 01/26/14 Stop Date: 01/28/14 Status: Discontinueddigoxin 0.125 mg, 0.5 mL, Route: IV, Drug form: INJ, ONCE, Start date: 01/26/14 6:20:00 , Stop date: 146:20:00 Notes: (Same as: Lanoxin) Start Date: 01/26/14 Stop Date: 01/26/14 Status: CompletedhydrALAZINE 10 mg, 0.5 mL, Route: IVP, Drug form: INJ, Q4H, Dosing Weight 119.801, kg, PRN See Nurse's Notes, Start date: 01/26/14 6:50:00, Duration: 30 day, Stop date: 6:49:00, SBP > 170 Notes: (Same as: Apresoline)Push over 5 minutes Start Date: 01/26/14 Stop Date: 01/28/14 Status: DiscontinuedLasix 20 mg, 2 mL, Route: IVP, Drug form: INJ, ONCE, Dosing Weight 119.801, kg, Start date: 01/26/14 6:51:00, Stop date: 01/26/14 6:51:00 Notes: (Same as: Lasix) Start Date: 01/26/14 Stop Date: 01/26/14 Status: CompletedLipitor 40 mg, 2 tab, Route: PO, Drug form: TAB, Bedtime, Dosing Weight 119.801, kg, Start date: 01/26/14 21:00:00, Duration: 30 day, Stop date: 02/24/14 21:00:00 Notes: (Same As: Lipitor) Start Date: 01/26/14 Stop Date: 01/28/14 Status: Discontinuedmagnesium sulfate 2 gm, 50 mL, Route: IVPB, Drug form: INJ, ONCE, Dosing Weight 119.801, kg, Total dose=2 gm, Start date: 01/26/14 19:17:00, Duration: 1 doses or times, Stop date: 01/26/14 19:17:00 Start Date: 01/26/14 Stop Date: 01/26/14 Status: Completedmagnesium sulfate 2 gm in Water 50 ml 2 gm, 50 mL, Route: IVPB, Drug form: INJ, ONCE, Dosing Weight 119.801, kg, Start date: 01/27/14 8:07:00, Duration: 2 hr, Stop date: 01/27/14 8:07:00 Start Date: 01/27/14 Stop Date: 01/27/14 Status: Completedmorphine Sulfate 2 mg, 0.25 mL, Route: IVP, Drug form: INJ, Q4H, Dosing Weight 119.801, kg, PRN Pain, Start date: 01/26/14 6:52:00, Duration: 30 day, Stop date: 02/25/14 6:51: 00 Notes: (Same as: MORPhine Sulfate) Start Date: 01/26/14 Stop Date: 01/28/14 Status: DiscontinuedNeurontin 400 mg oral capsule 400 mg, 1 cap, Route: PO, Drug form: CAP, BID, Dosing Weight 119.801, kg, Start date: 01/26/14 9:00:00, Duration: 30 day, Stop date: 02/24/14 17:00:00 Notes: (Same as: Neurontin) Start Date: 01/26/14 Stop Date: 01/28/14 Status: DiscontinuedNeurontin 400 mg oral capsule PO, BID, 0 Refill(s) Start Date: 01/26/14 Status: Orderednitroglycerin 2% ointment 0.5 inch, Route: TOP, Drug Form: OINT, Dosing Weight 119.801, kg, Q8H, Start date: 01/26/14 8:00:00,Duration: 30 day, Stop date: 02/25/14 0:00:00 Notes: 1 gram is approximately 1 inch of nitroglycerin ointment (20 mg NTG per gram) (Same as:Nitro-Bid) Start Date: 01/26/14 Stop Date: 01/28/14 Status: DiscontinuedNorco 5/325 oral tablet 1 tab, Route: PO, Drug Form: TAB, Dosing Weight 119.801, kg, Q4H, PRN Pain, Start date: 01/26/14 6:52:00, Duration: 30 day, Stop date: 02/25/14 6:51:00 Notes: (Same as: [place] 325/5) Do not exceed 4gm/day of acetaminophen. Start Date: 01/26/14 Stop Date: 01/28/14 Status: DiscontinuedPradaxa 150 mg, 1 cap, Route: PO, Drug form: CAP, BID, Start date: 01/26/14 10:41:00, Duration: 30 day, Stopdate: 02/25/14 9:00:00 Notes: DO NOT break, chew or open capsules for administration. Start Date: 01/26/14 Stop Date: 01/28/14 Status: DiscontinuedPradaxa 150 mg oral capsule PO, BID, 0 Refill(s) Start Date: 01/26/14 Stop Date: 01/28/14 Status: DiscontinuedPradaxa 150 mg oral capsule 150 mg=1 cap, PO, BID, # 60 cap, 0 Refill(s) Start Date: 01/28/14 Status: OrderedProtonix 40 mg, 1 tab, Route: PO, Drug form: ECTAB, Daily, Dosing Weight 119.801, kg, Start date: 01/26/14 7:30:00, Duration: 30 day, Stop date: 02/24/14 7:30:00 Notes: Tablet should not be chewed or crushed.(Same as: Protonix) Start Date: 01/26/14 Stop Date: 01/28/14 Status: DiscontinuedProtonix 40 mg, PO, Daily, # 30 tab, 0 Refill(s) Start Date: 01/26/14 Stop Date: 02/25/14 Status: OrderedSodium Chloride 0.9% IV 250 mL, Route: IVPB, Start date: 01/26/14 6:20:00, Duration: 30 day, Stop date: 02/25/14 6:19:00, PRN Line Flush Start Date: 01/26/14 Stop Date: 01/28/14 Status: Discontinuedtramadol 50 mg oral tablet 50 mg, 1 tab, Route: PO, Drug form: TAB, Q12H, Dosing Weight 119.801, kg, PRN as needed for pain, Start date: 01/26/14 6:56:00, Duration: 30 day, Stop date: 02/25/14 6:55:00 Notes: Not to exceed 400mg/day. (Same As: Ultram) Start Date: 01/26/14 Stop Date: 01/28/14 Status: Discontinuedtramadol 50 mg oral tablet PO, Q12H, Pain, 0 Refill(s) Start Date: 01/26/14 Status: OrderedTylenol 650 mg, 2 tab, Route: PO, Drug form: TAB, Q4H, Dosing Weight 119.801, kg, PRN See Nurse's Notes, Priority: Routine, Start date: 01/26/14 6:51:00, Duration: 30 day, Stop date: 02/25/14 6:50:00, pain, fever Notes: Do not exceed 4 gm/day. (Same as: Tylenol) Start Date: 01/26/14 Stop Date: 01/28/14 Status: DiscontinuedZofran 4 mg, 2 mL, Route: IV, Drug form: INJ, Q4H, Dosing Weight 119.801, kg, PRN Nausea, Start date: 01/26/14 6:51:00, Duration: 30 day, Stop date: 02/25/14 6:50 :00 Notes: (Same as: Zofran) Start Date: 01/26/14 Stop Date: 01/28/14 Status: Discontinued Results ELECTROLYTES Most recent to oldest 1 2 3 [Reference Range]: Sodium Lvl [135-145 mEq/L] 143 mEq/L 137 mEq/L 139 mEq/L (01/28/14 5:30 AM) (01/27/14 2:10 PM) (01/27/14 5:00 AM) Potassium Lvl [3.5-5.1 4.1 mEq/L 4.3 mEq/L 4.4 mEq/L mEq/L] (01/28/14 5:30 AM) (01/27/14 2:10 PM) (01/27/14 5:00 AM) Chloride Lvl [95-109 mEq/L] 106 mEq/L 104 mEq/L 104 mEq/L (01/28/14 5:30 AM) (01/27/14 2:10 PM) (01/27/14 5:00 AM) CO2 [24-32 mEq/L] 28 mEq/L 29 mEq/L 28 mEq/L (01/28/14 5:30 AM) (01/27/14 2:10 PM) (01/27/14 5:00 AM) AGAP [10.0-20.0 mEq/L] 13.1 mEq/L 8.3 mEq/L 11.4 mEq/L (01/28/14 5:30 AM) *LOW* (01/27/14 5:00 AM) (01/27/14 2:10 PM) CHEM PANEL Most recent to oldest 1 2 3 [Reference Range]: Creatinine Lvl [0.5-1.4 1.7 mg/dL 1.8 mg/dL 1.8 mg/dL mg/dL] *HI* *HI* *HI* (01/28/14 5:30 AM) (01/27/14 2:10 PM) (01/27/14 5:00 AM) eGFR 38 mL/min/1.73m2 1 35 mL/min/1.73m2 2 35 mL/min/1.73m2 3 *NA* *NA* *NA* (01/28/14 5:30 AM) (01/27/14 2:10 PM) (01/27/14 5:00 AM) BUN [7-22 mg/dL] 24 mg/dL 26 mg/dL 26 mg/dL *HI* *HI* *HI* (01/28/14 5:30 AM) (01/27/14 2:10 PM) (01/27/14 5:00 AM) Glucose Lvl [70-99 mg/dL] 99 mg/dL 4 163 mg/dL 5 112 mg/dL 6 (01/28/14 5:30 AM) *HI* *HI* (01/27/14 2:10 PM) (01/27/14 5:00 AM) Total Protein [6.4-8.4 g/dL] 7.6 g/dL (01/26/14 9:00 AM) Albumin Lvl [3.5-5.0 g/dL] 3.5 g/dL (01/26/14 9:00 AM) Globulin [2.0-4.0 g/dL] 4.1 g/dL *HI* (01/26/14 9:00 AM) A/G Ratio [0.7-1.6] 0.9 (01/26/14 9:00 AM) Calcium Lvl [8.5-10.5 mg/dL] 8.6 mg/dL 8.3 mg/dL 8.6 mg/dL (01/28/14 5:30 AM) *LOW* (01/27/14 5:00 AM) (01/27/14 2:10 PM) Phosphorus [2.5-4.5 mg/dL] 2.6 mg/dL 2.6 mg/dL (01/28/14 5:30 AM) (01/26/14 9:00 AM) Magnesium Lvl [1.8-2.4 2.1 mg/dL 2.0 mg/dL 1.5 mg/dL mg/dL] (01/28/14 5:30 AM) (01/27/14 2:10 PM) *LOW* (01/27/14 5:00 AM) ALT [0-65 unit/L] 17 unit/L (01/26/14 9:00 AM) AST [0-37 unit/L] 15 unit/L (01/26/14 9:00 AM) Alk Phos [39-136 unit/L] 78 unit/L (01/26/14 9:00 AM) Bili Total [0.2-1.3 mg/dL] 0.7 mg/dL (01/26/14 9:00 AM) Bili Direct [0.0-0.3 mg/dL] 0.2 mg/dL (01/26/14 9:00 AM) Bili Indirect [0.0-1.0 0.5 mg/dL mg/dL] (01/26/14 9:00 AM) 1Result Comment: The eGFR is calculated using [...] values reflect the clinical guidelines of the [place] [employer].5Interpretive Data: Adult reference range values reflect the clinical guidelines of the [place] [employer].6Interpretive Data: Adult reference range values reflect the clinical guidelines of the [place] [employer].CARDIAC ENZYMES Most recent to oldest [Reference Range]: 1 2 3 Total CK [12-191 unit/L] 88 unit/L (01/26/14 9:00 AM) CK MB [0.5-3.6 ng/mL] 2.6 ng/mL (01/26/14 9:00 AM) CK MB Index [0.0-2.5] 3.0 *HI* (01/26/14 9:00 AM) Troponin-I [0.00-0.40 ng/mL] 0.28 ng/mL (01/26/14 9:00 AM) BNP [<=100 pg/mL] 617 pg/mL 7 *HI* (01/26/14 9:00 AM) 7Interpretive Data: Elevated results are in line with increasing severity of congestive heart failure. Minor elevations between 100 and 300 may be seen with Myocardial Ischemia, Sodium retaining drugs, and compensated/treated heart failure.LIPIDS Most recent to oldest [Reference Range]: 1 2 3 CHD Risk [4.00-7.30] 3.36 *LOW* (01/27/14 5:00 AM) Chol [<=199 mg/dL] 131 mg/dL (01/27/14 5:00 AM) Trig [<=149 mg/dL] 114 mg/dL (01/27/14 5:00 AM) HDL [>=61 mg/dL] 39 mg/dL *LOW* (01/27/14 5:00 AM) LDL (Calculated) [<=99 mg/dL] 69 mg/dL (01/27/14 5:00 AM) VLDL 23 *NA* (01/27/14 5:00 AM) ANEMIA STUDY Most recent to oldest [Reference Range]: 1 2 3 Vitamin B12 Lvl [254-1320 pg/mL] 475 pg/mL (01/26/14 9:00 AM) Folate Lvl [>=3.0 ng/mL] 10.9 ng/mL (01/26/14 9:00 AM) THYROID PANEL Most recent to oldest [Reference Range]: 1 2 3 TSH [0.360-3.740 uIU/mL] 2.320 uIU/mL (01/26/14 9:00 AM) TOXICOLOGY Most recent to oldest [Reference Range]: 1 2 3 Digoxin Lvl [0.8-2.0 ng/mL] 1.2 ng/mL (01/27/14 5:00 AM) URINE AND STOOL Most recent to oldest [Reference Range]: 1 2 3 UA Turbidity [Clear] Clear (01/26/14 9:15 AM) UA Color [Yellow] Colorless *NA* (01/26/14 9:15 AM) UA pH [5.0-8.0] 7.0 (01/26/14 9:15 AM) UA Spec Grav [<=1.030] 1.005 (01/26/14 9:15 AM) UA Glucose [Negative mg/dL] Negative mg/dL *NA* (01/26/14 9:15 AM) UA Blood [Negative] Negative (01/26/14 9:15 AM) UA Ketones [Negative mg/dL] Negative mg/dL *NA* (01/26/14 9:15 AM) UA Protein [Negative mg/dL] Negative mg/dL (01/26/14 9:15 AM) UA Urobilinogen [0.1-1.0 mg/dL] <=1.0 mg/dL *NA* (01/26/14 9:15 AM) UA Bili [Negative] Negative *NA* (01/26/14 9:15 AM) UA Leuk Est [Negative] Negative (01/26/14 9:15 AM) UA Nitrite [Negative] Negative (01/26/14 9:15 AM) UA WBC [0-5 /HPF] <1 /HPF (01/26/14 9:15 AM) UA Sq Epi None Seen *NA* (01/26/14 9:15 AM) HEMATOLOGY Most recent to oldest 1 2 3 [Reference Range]: WBC [3.7-10.4 K/CMM] 7.5 K/CMM 6.2 K/CMM 6.6 K/CMM (01/28/14 5:30 AM) (01/27/14 5:00 AM) (01/26/14 9:00 AM) RBC [4.70-6.10 M/CMM] 3.84 M/CMM 4.06 M/CMM 4.53 M/CMM *LOW* *LOW* *LOW* (01/28/14 5:30 AM) (01/27/14 5:00 AM) (01/26/14 9:00 AM) Hgb [14.0-18.0 g/dL] 11.3 g/dL 11.7 g/dL 13.2 g/dL *LOW* *LOW* *LOW* (01/28/14 5:30 AM) (01/27/14 5:00 AM) (01/26/14 9:00 AM) Hct [42.0-54.0 %] 34.2 % 36.5 % 40.4 % *LOW* *LOW* *LOW* (01/28/14 5:30 AM) (01/27/14 5:00 AM) (01/26/14 9:00 AM) MCV [80.0-94.0 fL] 89.0 fL 90.0 fL 89.2 fL (01/28/14 5:30 AM) (01/27/14 5:00 AM) (01/26/14 9:00 AM) MCH [27.0-31.0 pg] 29.3 pg 28.8 pg 29.2 pg (01/28/14 5:30 AM) (01/27/14 5:00 AM) (01/26/14 9:00 AM) MCHC [32.0-36.0 g/dL] 32.9 g/dL 32.0 g/dL 32.7 g/dL (01/28/14 5:30 AM) (01/27/14 5:00 AM) (01/26/14 9:00 AM) RDW [11.5-14.5 %] 14.1 % 14.2 % 14.3 % (01/28/14 5:30 AM) (01/27/14 5:00 AM) (01/26/14 9:00 AM) Platelet [133-450 K/CMM] 79 K/CMM 71 K/CMM 84 K/CMM *LOW* *LOW* *LOW* (01/28/14 5:30 AM) (01/27/14 5:00 AM) (01/26/14 9:00 AM) MPV [7.4-10.4 fL] 10.3 fL 9.8 fL 9.8 fL (01/28/14 5:30 AM) (01/27/14 5:00 AM) (01/26/14 9:00 AM) Segs [45.0-75.0 %] 66.4 % 68.2 % 65.9 % (01/28/14 5:30 AM) (01/27/14 5:00 AM) (01/26/14 9:00 AM) Lymphocytes [20.0-40.0 %] 24.7 % 26.0 % 27.2 % (01/28/14 5:30 AM) (01/27/14 5:00 AM) (01/26/14 9:00 AM) Monocytes [2.0-12.0 %] 6.8 % 4.0 % 4.6 % (01/28/14 5:30 AM) (01/27/14 5:00 AM) (01/26/14 9:00 AM) Eosinophils [0.0-4.0 %] 1.7 % 1.5 % 1.6 % (01/28/14 5:30 AM) (01/27/14 5:00 AM) (01/26/14 9:00 AM) Basophils [0.0-1.0 %] 0.4 % 0.3 % 0.7 % (01/28/14 5:30 AM) (01/27/14 5:00 AM) (01/26/14 9:00 AM) Segs-Bands # [1.5-8.1 K/CMM] 5.0 K/CMM 4.2 K/CMM 4.4 K/CMM (01/28/14 5:30 AM) (01/27/14 5:00 AM) (01/26/14 9:00 AM) Lymphocytes # [1.0-5.5 1.8 K/CMM 1.6 K/CMM 1.8 K/CMM K/CMM] (01/28/14 5:30 AM) (01/27/14 5:00 AM) (01/26/14 9:00 AM) Monocytes # [0.0-0.8 K/CMM] 0.5 K/CMM 0.2 K/CMM 0.3 K/CMM (01/28/14 5:30 AM) (01/27/14 5:00 AM) (01/26/14 9:00 AM) Eosinophils # [0.0-0.5 0.1 K/CMM 0.1 K/CMM 0.1 K/CMM K/CMM] (01/28/14 5:30 AM) (01/27/14 5:00 AM) (01/26/14 9:00 AM) Basophils # [0.0-0.2 K/CMM] 0.0 K/CMM (01/27/14 5:00 AM) PT [12.0-14.7 seconds] 15.6 seconds *HI* (01/26/14 9:00 AM) INR [0.85-1.17] 1.23 8 *HI* (01/26/14 9:00 AM) 8Interpretive Data: RECOMMENDED RANGES FOR PROTIME INR: 2.0-3.0 for most medical and surgical thromboembolic states. 2.5-3.5 for artificial heart valves and recurrent embolism. INR SHOULD BE USED ONLY FOR PATIENTS ON STABLE ANTICOAGULANT THERAPY. Medications Administered During Your Visit No data available for this section Immunizations No data available for this section Social History Social History Type Response Alcohol Use: Current, Type: Beer, Frequency: 3-5 times per week Smoking Status Former smoker, Exposure to Tobacco Smoke None, Cigarette Smoking Last 365 Days No, Reg Smoking Cessation Counseling Yes Assessment and Plan Extracted from: Title: Progress Note * Author: Oscar Farmer MD Date: 01/28/14 Patient: JAVIER BUNCH Age: 78 years Sex: Male : 1935 Associated Diagnoses: None Author: Oscar Farmer MD Subjective no chest pain, palpitations, or shortness of breath Health Status Problem list: All Problems AF - Atrial fibrillation / SNOMED CT 8553630168 / Confirmed Atrial fibrillation / SNOMED CT 24998307 / Confirmed Cardiac catheterization / SNOMED CT 44856296 / Confirmed Diabetes mellitus / SNOMED CT 331185637 / Confirmed Dizziness / SNOMED CT 1909116408 / Confirmed Fusion / SNOMED CT 13754701 / Confirmed HTN - Hypertension / SNOMED CT 1078704133 / Confirmed Pain / SNOMED CT 83572468 / Confirmed Sleep apnea / SNOMED CT 894240147 / Confirmed Inactive: Chest pain / SNOMED CT 55189851 Inactive: Cough / SNOMED CT 82455319 Inactive: Nausea / SNOMED CT 6345536578 Resolved: CHF - Congestive heart failure / SNOMED CT 853282371 Resolved: DVT - Deep vein thrombosis of lower limb / SNOMED CT 3364834500 Objective Meds Scheduled Meds (7):AMIODarone (Cordarone), atorvastatin (Lipitor), carvedilol ( Coreg), dabigatran (Pradaxa), gabapentin (Neurontin 400 mg oral capsule), nitroglycerin (nitroglycerin 2% ointment), pantoprazole (Protonix) Unscheduled Meds (1):cefazolin PRN Meds (10):ALPRAZolam (ALPRAZOLam), Sodium Chloride 0.9% IV, acetaminophen- hydrocodone ([place] 5/325 oral tablet), acetaminophen (Tylenol), docusate ( [place] 100 mg oral capsule), hydrALAZINE, morphine Sulfate, ondansetron (Zofran), sodium chloride (BD Normal Saline Flush), tramadol (tramadol 50 mg oral tablet) One Time Meds (1):(Completed) magnesium sulfate (magnesium sulfate 2 gm in Water 50 ml) Continuous Infusions: None I&O Input/Output Record In Out Bal 01/27 24hr Tot 1550 2550 -1000 01/26 24hr Tot 515 2450 -7455 VS/Measurements Measurements from flowsheet : Measurements 01/26/2014 04:58 Heparin Dosing Weight (kg) 100.00 01/26/2014 04:56 Height 193.04 cm Height Collection Method Stated Weight 119.801 kg Weight Collection Method Measured Body Surface Area 2.5346 m2 Body Mass Index 32.15 m2 01/26/2014 04:49 Weight Collection Method Measured Current Weight 119.955 kg , Vital Signs (last 24 hrs) Last Charted Minimum Maximum Temp 98.8 (JAN 28 08:02) 98.1 (JAN 27 11:41) 99 (JAN 27 20:00) Heart Rate 60 (JAN 28 08:02) L 54 (JAN 27 15:40) 64 (JAN 28 00:00) Resp Rate 18 (JAN 28 08:02) 18 (JAN 27 15:40) 20 (JAN 27 11:41) SBP 139 (JAN 28 08:02) 120 (JAN 28 04:00) H 156 (JAN 27 11:41) DBP 71 (JAN 28 08:02) L 54 (JAN 28 04:00) 71 (JAN 28 08:02) Weight 119.11 (JAN 28 05:00) General: Alert and oriented, No acute distress. Eye: Pupils are equal, round and reactive to light, Extraocular movements are intact, Normal conjunctiva. HENT: Normocephalic, Normal hearing, Oral mucosa is moist. Neck: Supple. Respiratory: Lungs are clear to auscultation, Respirations are non-labored. Cardiovascular: Normal rate, Regular rhythm, No murmur, No gallop, Good pulses equal in all extremities. Gastrointestinal: Soft, Non-tender, Non-distended. Lymphatics: no cervical adnieopathy. Musculoskeletal No deformity. Integumentary: No rash. Neurologic: Alert, Oriented, Cranial Nerves II-XII are grossly intact. Psychiatric: Cooperative, Appropriate mood & affect. Review / Management Results review: Labs (Last four charted values) WBC 7.5 (JAN 28) 6.2 (JAN 27) 6.6 (JAN 26) Hgb L 11.3 (JAN 28) L 11.7 (JAN 20) L 13.2 (JAN 26) Hct L 34.2 (JAN 28) L 36.5 (JAN 27) L 40.4 (JAN 26) Plt L 79 (JAN 28) L 71 (JAN 20) L 84 (JAN 26) Na 143 (JAN 28) 137 (JAN 20) 139 (JAN 27) 138 (JAN 26) K 4.1 (JAN 28) 4.3 (JAN 27) 4.4 (JAN 27) 4.4 (JAN 26) CO2 28 (JAN 28) 29 (JAN 27) 28 (JAN 27) 30 (JAN 26) Cl 106 (JAN 28) 104 (JAN 27) 104 (JAN 27) 102 (JAN 26) Cr H 1.7 (JAN 28) H 1.8 (JAN 27) H 1.8 (JAN 27) H 1.7 (JAN 26 ) BUN H 24 (JAN 28) H 26 (JAN 27) H 26 (JAN 27) 22 (JAN 26) Glucose Random 99 (JAN 28) H 163 (JAN 27) H 112 (JAN 27) H 110 (JAN 26) Mg 2.1 (JAN 28) 2.0 (JAN 27) L 1.5 (JAN 27) L 1.6 (JAN 26) Phos 2.6 (JAN 28) 2.6 (JAN 26) Ca 8.6 (JAN 28) L 8.3 (JAN 27) 8.6 (JAN 27) 8.9 (JAN 26) PT H 15.6 (JAN 26) INR H 1.23 (JAN 26) Troponin 0.28 (JAN 26) CK MB 2.6 (JAN 26) Total CK 88 (JAN 26) . Impression and Plan 1. afib with rvr and sick sinnus syndrome s/p cardioversion-- continue amiodarone. continue pradaxa. discussed with cardiology. possible discharge today. will await final cardiology recommendations. 2. chronic systolic congestive heart failure-- bnp a bit elevated, but clinical volume status is ok. conitnue current. 3. coronary artery disease and benign hypertensive heart and kidney disease-- contineu current. 4. hypomagnesemia-- continue replacement. will recheck at noon and replace as needed 5. chronic kidney disease3-- contineu monitoring. 6. hyperlipidemia-- continue current. 7. anemia of chronic disease-- monitor. 8. thrombocytopenia-- has been stable on pradaxa. likely chronic and no evidence of bleeding. oyutpatient follow up with hematology. Addendum by Oscar Farmer MD on potential benefits of pradaxa outweigh the 01/28/2014 08:13 potential risks. discussed wtih patient and his . they seem to understand and agree Addendum by Oscar Farmer MD on i talked to patient again about his 01/28/2014 08:21 platelet level. he tells me that he normally sees Dr. Negron for his platelets. he saw Dr. Negron about 3 weeks ago. the patient thinks that his platelet level at that time was 77 (no records of that available to me). patient tells me that he has been on pradaxa for a while and that he will follow up with . Addendum by Oscar Farmer MD on urine cutlure was noted. patient had no 01/29/2014 08:50 uti symptoms. initial ua showed no leukocyte esterase or nitrite. so culture is of uncertain clincial singificance, probably just contaminant. no need for abx. Addendum by Oscar Farmer MD on discharge time=42 minutes 01/29/2014 08:54 Addendum by Oscar Farmer MD on clarify: chronic diastolic congestive 01/29/2014 08:57 heart failure with ef 65% (not systolic chf)
--- OUTSIDE RECORDS SUMMARY | 2019-01-23 10:00 | XMS REPORT | Summary of Care ---
:1935 Author Encounter [facility] Alyson(GHAZALA) [id number] Date(s): 04/02/14 - 04/02/[address] Discharge Disposition: Home Physician Attending: Terry Monterroso MD Physician_Referring: Terry Monterroso MD Reason for Visit MEDISTINAL LYMPADENOPATHY Vital Signs Most recent to oldest 1 2 3 [Reference Range]: Height 193.04 cm (03/30/14 10:58 AM) Temperature Oral 97.9 DegF 97.7 DegF 98.2 DegF [96.4-99.1 DegF] (04/02/14 9:15 AM) (04/02/14 7:00 AM) (03/30/14 10:58 AM) Systolic Blood Pressure 137 mmHg 137 mmHg 147 mmHg [90-140 mmHg] (04/02/14 11:45 AM) (04/02/14 11:30 AM) *HI* (04/02/14 11:15 AM) Diastolic Blood Pressure 54 mmHg 54 mmHg 60 mmHg [60-90 mmHg] *LOW* *LOW* (04/02/14 11:15 AM) (04/02/14 11:45 AM) (04/02/14 11:30 AM) Respiratory Rate [14-20 17 BRMIN 12 BRMIN 13 BRMIN BRMIN] (04/02/14 11:45 AM) *LOW* *LOW* (04/02/14 11:30 AM) (04/02/14 11:15 AM) Peripheral Pulse Rate 58 bpm [60-100 bpm] *LOW* (03/30/14 10:58 AM) Weight 118.182 kg (03/30/14 10:58 AM) Body Mass Index 31.71 m2 (03/30/14 10:58 AM) Problem List Condition Effective Dates Status Health Status Informant AF - Atrial fibrillation(Confirmed) Active Asbestosis(Confirmed) Active Atrial fibrillation(Confirmed) Active Cardiac catheterization(Confirmed) 04/28/11 Active CHF - Congestive heart Active failure(Confirmed) CVA - Cerebrovascular Resolved accident(Confirmed) Diabetes mellitus(Confirmed)1, 2 Active Dizziness(Confirmed) Active DVT - Deep vein thrombosis of lower Active limb(Confirmed) Fusion(Confirmed) Active Gout(Confirmed) Active HTN - Hypertension(Confirmed) Active LA (myocardial Active infarction)(Confirmed) Monoclonal gammopathy(Confirmed)3 Active Pain(Confirmed) Active Sleep apnea(Confirmed) Active 1PATIENT STATES HE IS NOT A [id number] platelets Allergies, Adverse Reactions, Alerts Substance Reaction Severity Status Bactrim hives Severe Active NKFA Active Plavix Active sulfa drugs Active Medications acetaminophen 650 mg, 2 tab, Route: PO, Drug form: TAB, Q4H, Dosing Weight 118.182, kg, PRN Pain 1-3/Temp > 100.4 F, Start date: 04/02/14 8:55:00, Duration: 30 day, Stop date: 05/02/14 8:54:00 Notes: Do not exceed 4 gm/day. (Same as: Tylenol) Start Date: 04/02/14 Stop Date: 04/02/14 Status: Discontinuedacetaminophen-codeine #3 2 tab, Route: PO, Drug Form: TAB, Dosing Weight 127.1, kg, Q4H, PRN Pain Score 4 -6, Start date: 04/02/14 8:55:00, Duration: 30 day, Stop date: 05/02/14 8:54:00 Notes: Do not exceed 4gm/day of acetaminophen. (Same as: Tylenol with Codeine # 3) Start Date: 04/02/14 Stop Date: 04/02/14 Status: Discontinuedgabapentin 300 mg oral capsule 600 mg=2 cap, PO, TID, 0 Refill(s) Start Date: 03/30/14 Status: OrderedZinacef + Sodium Chloride 0.9% IV 100 mL 1.5 gm, Route: IVPB, PRE OP, Dosing Weight 127.1, kg, Start date: 03/30/14 12:00 :00, Duration: 30 day, Stop date: 04/29/14 11:59:00 Notes: (Same As: Kefurox, Zinacef) Start Date: 03/30/14 Stop Date: 04/02/14 Status: Discontinued Results BLOOD BANK RESULTS Most recent to oldest [Reference Range]: 1 2 ABO/Rh AB POS *Unknown* (03/30/14 11:25 AM) Antibody Scrn Negative (03/30/14 11:25 AM) RBC product Product available (03/30/14 11:25 AM) ELECTROLYTES Most recent to oldest [Reference Range]: 1 2 Sodium Lvl [135-145 mEq/L] 143 mEq/L (03/30/14 11:25 AM) Potassium Lvl [3.5-5.1 mEq/L] 3.7 mEq/L (03/30/14 11:25 AM) Chloride Lvl [95-109 mEq/L] 106 mEq/L (03/30/14 11:25 AM) CO2 [24-32 mEq/L] 30 mEq/L (03/30/14 11:25 AM) AGAP [10.0-20.0 mEq/L] 10.7 mEq/L (03/30/14 11:25 AM) POC Sodium [135-145 mEq/L] 142 mEq/L (04/02/14 6:54 AM) POC Potassium [3.5-5.1 mEq/L] 4.2 mEq/L (04/02/14 6:54 AM) POC Chloride [95-109 mEq/L] 102 mEq/L (04/02/14 6:54 AM) POC Carbon Dioxide [24-32 mEq/dL] 24 mEq/dL (04/02/14 6:54 AM) POC AGAP [10.0-20.0 mEq/L] 21.0 mEq/L *HI* (04/02/14 6:54 AM) CHEM PANEL Most recent to oldest [Reference Range]: 1 2 Creatinine Lvl [0.5-1.4 mg/dL] 2.1 mg/dL *HI* (03/30/14 11:25 AM) eGFR 34 mL/min/1.73m2 1 34 mL/min/1.73m2 2 *NA* *NA* (04/02/14 6:54 AM) (03/30/14 11:25 AM) BUN [7-22 mg/dL] 34 mg/dL *HI* (03/30/14 11:25 AM) Glucose Lvl [70-99 mg/dL] 88 mg/dL 3 (03/30/14 11:25 AM) POC Creatinine [0.5-1.4 mg/dL] 2.1 mg/dL *HI* (04/02/14 6:54 AM) POC BUN [7-22 mg/dL] 28 mg/dL *HI* (04/02/14 6:54 AM) POC Glucose [70-99 mg/dL] 101 mg/dL *HI* (04/02/14 6:54 AM) Calcium Lvl [8.5-10.5 mg/dL] 8.6 mg/dL (03/30/14 11:25 AM) POC Ion Ca [1.05-1.25 mMol/L] 1.24 mMol/L (04/02/14 6:54 AM) 1Result Comment: The eGFR is calculated [...] eGFR should be multiplied by the estimated BMI.3Interpretive Data: Adult reference range values reflect the clinical guidelines of the [place] [employer].HEMATOLOGY Most recent to oldest [Reference Range]: 1 2 WBC [3.7-10.4 K/CMM] 4.9 K/CMM (03/30/14 11:25 AM) RBC [4.70-6.10 M/CMM] 3.57 M/CMM *LOW* (03/30/14 11:25 AM) Hgb [14.0-18.0 g/dL] 10.1 g/dL *LOW* (03/30/14 11:25 AM) Hct [42.0-54.0 %] 30.9 % *LOW* (03/30/14 11:25 AM) MCV [80.0-94.0 fL] 86.5 fL (03/30/14 11:25 AM) MCH [27.0-31.0 pg] 28.2 pg (03/30/14 11:25 AM) MCHC [32.0-36.0 g/dL] 32.6 g/dL (03/30/14 11:25 AM) RDW [11.5-14.5 %] 18.3 % *HI* (03/30/14 11:25 AM) Platelet [133-450 K/CMM] 122 K/CMM *LOW* (03/30/14 11:25 AM) MPV [7.4-10.4 fL] 9.1 fL (03/30/14 11:25 AM) POC Hemoglobin [14.0-18.0 g/dL] 11.2 g/dL *LOW* (04/02/14 6:54 AM) POC Hematocrit [42.0-54.0 %] 33.0 % *LOW* (04/02/14 6:54 AM) Segs [45.0-75.0 %] 67.4 % (03/30/14 11:25 AM) Lymphocytes [20.0-40.0 %] 23.7 % (03/30/14 11:25 AM) Monocytes [2.0-12.0 %] 5.1 % (03/30/14 11:25 AM) Eosinophils [0.0-4.0 %] 3.5 % (03/30/14 11:25 AM) Basophils [0.0-1.0 %] 0.3 % (03/30/14 11:25 AM) Segs-Bands # [1.5-8.1 K/CMM] 3.3 K/CMM (03/30/14 11:25 AM) Lymphocytes # [1.0-5.5 K/CMM] 1.2 K/CMM (03/30/14 11:25 AM) Monocytes # [0.0-0.8 K/CMM] 0.3 K/CMM (03/30/14 11:25 AM) Eosinophils # [0.0-0.5 K/CMM] 0.2 K/CMM (03/30/14 11:25 AM) Basophils # [0.0-0.2 K/CMM] 0.0 K/CMM (03/30/14 11:25 AM) RBC Morph Normal (03/30/14 11:25 AM) Plt Morph Normal (03/30/14 11:25 AM) PT [12.0-14.7 seconds] 14.1 seconds (03/30/14 11:25 AM) INR [0.85-1.17] 1.08 4 (03/30/14 11:25 AM) PTT [22.9-35.8 seconds] 27.7 seconds 5 (03/30/14 11:25 AM) 4Interpretive Data: RECOMMENDED RANGES FOR PROTIME INR: 2.0-3.0 for most medical and surgical thromboembolic states. 2.5-3.5 for artificial heart valves and recurrent embolism. INR SHOULD BE USED ONLY FOR PATIENTS ON STABLE ANTICOAGULANT THERAPY.5Interpretive Data: Heparin Therapeutic Range: 57 - 92 Seconds Medications Administered During Your Visit No data available for this section Immunizations No data available for this section Procedures Procedure Type Body Site Date of Procedure Related Diagnosis Fluoroscopic angiography of coronary artery and insertion of stent Percutaneous transluminal balloon angioplasty of aorta with stent placement for coarctation of aorta Social History Social History Type Response Alcohol Use: Current, Type: Beer, Frequency: 3-5 times per week Smoking Status Former smoker, Exposure to Tobacco Smoke None, Cigarette Smoking Last 365 Days No, Reg Smoking Cessation Counseling Yes
--- OUTSIDE RECORDS SUMMARY | 2019-01-23 10:01 | XMS REPORT | Summary of Care ---
:[address] [facility] Address [address], [place] [address]- Encounter [facility] Ministerio_khoi(FIN) [id number] Date(s): 02/02/15 - 02/02/15 [id number] [place] [address]- Discharge Diagnosis: Accidental fall Discharge Diagnosis: Contusion of hip Discharge Disposition: Home Attending Physician: Pop Mercado MD Vital Signs Most recent to oldest [Reference Range]: 1 2 Height 172.72 cm (02/02/15 3:33 PM) Most recent to oldest [Reference Range]: 1 2 Temperature Oral [96.4-99.1 DegF] 98 DegF 98.2 DegF (02/02/15 7:13 PM) (02/02/15 3:33 PM) Most recent to oldest [Reference Range]: 1 2 Blood Pressure [90-140/60-90 mmHg] 167/74 mmHg 118/68 mmHg *HI* (02/02/15 3:33 PM) (02/02/15 7:13 PM) Most recent to oldest [Reference Range]: 1 2 Respiratory Rate [14-20 BRMIN] 18 BRMIN 18 BRMIN (02/02/15 7:13 PM) (02/02/15 3:33 PM) Most recent to oldest [Reference Range]: 1 2 Peripheral Pulse Rate [60-100 bpm] 69 bpm 82 bpm (02/02/15 7:13 PM) (02/02/15 3:33 PM) Most recent to oldest [Reference Range]: 1 2 Weight 131.364 kg (02/02/15 3:33 PM) Most recent to oldest [Reference Range]: 1 2 Body Mass Index 44.03 m2 (02/02/15 3:33 PM) Problem List Condition Effective Dates Status Health Status Informant AF - Atrial fibrillation(Confirmed) Active Asbestosis(Confirmed) Active Atrial fibrillation(Confirmed) Active Cardiac catheterization(Confirmed) 04/28/11 Active CHF - Congestive heart Active failure(Confirmed) CVA - Cerebrovascular Resolved accident(Confirmed) Diabetes mellitus(Confirmed)1, 2 Active Dizziness(Confirmed) Active DVT - Deep vein thrombosis of lower Active limb(Confirmed) Fusion(Confirmed) Active Gout(Confirmed) Active HTN - Hypertension(Confirmed) Active CO (myocardial Active infarction)(Confirmed) Monoclonal gammopathy(Confirmed)3 Active Pain(Confirmed) Active Pneumonia(Confirmed) Resolved Sleep apnea(Confirmed) Active 1PATIENT STATES HE IS NOT A [id number] platelets Allergies, Adverse Reactions, Alerts Substance Reaction Severity Status Bactrim hives Severe Active NKFA Active Plavix Active sulfa drugs Active Medications barium sulfate 450 mL, Route: PO, Drug Form: SUSP, Dosing Weight 131.364, kg, ONCE, Start date : 02/02/15 16:18:00, Stop date: 02/02/15 16:18:00 Notes: Same as Readi-Cat 2 Start Date: 02/02/15 Stop Date: 02/02/15 Status: Discontinuedmorphine Sulfate 4 mg, 1 mL, Route: IVP, Drug form: INJ, ONCE, Dosing Weight 131.364, kg, Priority: STAT, Start date:02/02/15 16:18:00, Stop date: 02/02/15 16:18:00 Notes: (Same as:MORPhine Sulfate) Start Date: 02/02/15 Stop Date: 02/02/15 Status: DiscontinuedNorco 5/325 oral tablet 1 tab, Route: PO, Drug Form: TAB, Dosing Weight 131.364, kg, ONCE, STAT, Start date: 02/02/15 16:30:00, Stop date: 02/02/15 16:30:00 Notes: (Same as: Capulin 325/5) Do not exceed 4gm/day of acetaminophen. Start Date: 02/02/15 Stop Date: 02/02/15 Status: CompletedSaline Flush 0.9% 10 mL, Route: IVP, Drug Form: INJ, Dosing Weight 131.364, kg, PRN, PRN Line Flush, Start date: 02/02/15 16:18:00, Duration: 30 day, Stop date: 03/04/15 16: 17:00 Notes: (Same as: BD Posiflush) Start Date: 02/02/15 Stop Date: 02/02/15 Status: DiscontinuedUltram 50 mg oral tablet 50 mg=1 tab, PO, Q4H, PRN pain, # 20 tab, 0 Refill(s) Start Date: 02/02/15 Stop Date: 02/03/15 Status: Completed Results ELECTROLYTES Most recent to oldest [Reference Range]: 1 Sodium Lvl [135-145 mEq/L] 137 mEq/L (02/02/15 5:04 PM) Potassium Lvl [3.5-5.1 mEq/L] 3.4 mEq/L *LOW* (02/02/15 5:04 PM) Chloride Lvl [95-109 mEq/L] 105 mEq/L (02/02/15 5:04 PM) CO2 [24-32 mEq/L] 25 mEq/L (02/02/15 5:04 PM) AGAP [10.0-20.0 mEq/L] 10.4 mEq/L (02/02/15 5:04 PM) CHEM PANEL Most recent to oldest [Reference Range]: 1 Creatinine Lvl [0.5-1.4 mg/dL] 1.9 mg/dL *HI* (02/02/15 5:04 PM) eGFR 38 mL/min/1.73m2 1 *NA* (02/02/15 5:04 PM) BUN [7-22 mg/dL] 13 mg/dL (02/02/15 5:04 PM) B/C Ratio [6-25] 7 (02/02/15 5:04 PM) Glucose Lvl [70-99 mg/dL] 111 mg/dL *HI* (02/02/15 5:04 PM) Total Protein [6.4-8.4 g/dL] 8.3 g/dL (02/02/15 5:04 PM) Albumin Lvl [3.5-5.0 g/dL] 3.4 g/dL *LOW* (02/02/15 5:04 PM) Globulin [2.0-4.0 g/dL] 4.9 g/dL *HI* (02/02/15 5:04 PM) A/G Ratio [0.7-1.6] 0.7 (02/02/15 5:04 PM) Calcium Lvl [8.5-10.5 mg/dL] 8.7 mg/dL (02/02/15 5:04 PM) ALT [0-65 unit/L] 16 unit/L (02/02/15 5:04 PM) AST [0-37 unit/L] 20 unit/L (02/02/15 5:04 PM) Alk Phos [39-136 unit/L] 112 unit/L (02/02/15 5:04 PM) Bili Total [0.2-1.3 mg/dL] 0.7 mg/dL (02/02/15 5:04 PM) 1Result Comment: The eGFR is calculated [...] eGFR should be multiplied by the estimated BMI.CARDIAC ENZYMES Most recent to oldest [Reference Range]: 1 Total CK [12-191 unit/L] 66 unit/L (02/02/15 5:04 PM) HEMATOLOGY Most recent to oldest [Reference Range]: 1 WBC [3.7-10.4 K/CMM] 5.1 K/CMM (02/02/15 5:04 PM) RBC [4.70-6.10 M/CMM] 4.04 M/CMM *LOW* (02/02/15 5:04 PM) Hgb [14.0-18.0 g/dL] 11.3 g/dL *LOW* (02/02/15 5:04 PM) Hct [42.0-54.0 %] 36.3 % *LOW* (02/02/15 5:04 PM) MCV [80.0-94.0 fL] 89.8 fL (02/02/15 5:04 PM) MCH [27.0-31.0 pg] 28.0 pg (02/02/15 5:04 PM) MCHC [32.0-36.0 g/dL] 31.2 g/dL *LOW* (02/02/15 5:04 PM) RDW [11.5-14.5 %] 16.8 % *HI* (02/02/15 5:04 PM) Platelet [133-450 K/CMM] 139 K/CMM (02/02/15 5:04 PM) MPV [7.4-10.4 fL] 8.2 fL (02/02/15 5:04 PM) Segs [45.0-75.0 %] 65.9 % (02/02/15 5:04 PM) Lymphocytes [20.0-40.0 %] 23.2 % (02/02/15 5:04 PM) Monocytes [2.0-12.0 %] 7.0 % (02/02/15 5:04 PM) Eosinophils [0.0-4.0 %] 3.3 % (02/02/15 5:04 PM) Basophils [0.0-1.0 %] 0.6 % (02/02/15 5:04 PM) Segs-Bands # [1.5-8.1 K/CMM] 3.3 K/CMM (02/02/15 5:04 PM) Lymphocytes # [1.0-5.5 K/CMM] 1.2 K/CMM (02/02/15 5:04 PM) Monocytes # [0.0-0.8 K/CMM] 0.4 K/CMM (02/02/15 5:04 PM) Eosinophils # [0.0-0.5 K/CMM] 0.2 K/CMM (02/02/15 5:04 PM) Basophils # [0.0-0.2 K/CMM] 0.0 K/CMM (02/02/15 5:04 PM) Immunizations No data available for this section Procedures Procedure Date Related Diagnosis Body Site Fluoroscopic angiography of coronary artery and insertion of stent Fusion of lumbar spine IVC - Insertion of inferior vena caval filter Percutaneous transluminal balloon angioplasty of aorta with stent placement for coarctation of aorta Procedure on back1 1states "back surgery" Social History Social History Type Response Alcohol Current, Type Beer. Frequency: 3-5 times per week. Smoking Status Former smoker; Exposure to Tobacco Smoke None; Cigarette Smoking Last 365 Days No; Reg Smoking Cessation Counseling Yes Assessment and Plan No data available for this section
--- OUTSIDE RECORDS SUMMARY | 2019-01-23 10:01 | XMS REPORT | Summary of Care ---
:1935 Author Organization [facility] Address [address], [place] [address]- Encounter HQ [employer]i(FIN) [id number] Date(s): 04/21/15 - 04/24/15 [facility] [address] [place] [address]- Discharge Disposition: Home Attending Physician: Mike Anderson MD Admitting Physician: Mike Anderson MD Vital Signs Most recent to oldest 1 2 3 [Reference Range]: Height 187.96 cm (04/21/15 1:11 AM) Temperature Oral [96.4-99.1 97.7 DegF 97.2 DegF 97.7 DegF DegF] (04/24/15 11:04 AM) (04/24/15 8:20 AM) (04/23/15 6:30 PM) Blood Pressure 131/69 mmHg 123/74 mmHg 110/66 mmHg [90-140/60-90 mmHg] (04/24/15 11:04 AM) (04/24/15 8:20 AM) (04/24/15 6:24 AM ) Respiratory Rate [14-20 18 BRMIN 18 BRMIN 18 BRMIN BRMIN] (04/24/15 11:04 AM) (04/24/15 8:20 AM) (04/24/15 6:24 AM) Peripheral Pulse Rate 65 bpm 64 bpm 60 bpm [60-100 bpm] (04/24/15 11:04 AM) (04/24/15 8:20 AM) (04/24/15 6:24 AM) Weight 130.004 kg (04/21/15 1:11 AM) Body Mass Index 36.8 m2 (04/21/15 1:11 AM) Problem List Condition Effective Dates Status Health Status Informant AF - Atrial fibrillation(Confirmed) Active Asbestosis(Confirmed) Active Atrial fibrillation(Confirmed) Active Cardiac catheterization(Confirmed) 04/28/11 Active CHF - Congestive heart Active failure(Confirmed) CVA - Cerebrovascular Resolved accident(Confirmed) Diabetes mellitus(Confirmed)1, 2 Active Dizziness(Confirmed) Active DVT - Deep vein thrombosis of lower Active limb(Confirmed) Fusion(Confirmed) Active Gout(Confirmed) Active HTN - Hypertension(Confirmed) Active FL (myocardial Active infarction)(Confirmed) Monoclonal gammopathy(Confirmed)3 Active Pain(Confirmed) Active Pneumonia(Confirmed) Resolved Sleep apnea(Confirmed) Active 1PATIENT STATES HE IS NOT A [id number] platelets Allergies, Adverse Reactions, Alerts Substance Reaction Severity Status Bactrim hives Severe Active NKFA Active Plavix Active sulfa drugs Active Medications acetaminophen-codeine 300 mg-30 mg oral tablet 1 tab, Route: PO, Drug Form: TAB, Q6H, PRN Other -See Comment, Start date: 04/21 1:08:00, Duration: 30 day, Stop date: 05/21/15 1:07:00 Notes: Do not exceed 4gm/day of acetaminophen. (Same as: Tylenol with Codeine # 3) Start Date: 04/21/15 Stop Date: 04/24/15 Status: Discontinuedacetaminophen-codeine 300 mg-30 mg oral tablet 2 tab, Route: PO, Drug Form: TAB, Q6H, PRN Other -See Comment, Start date: 04/21 1:08:00, Duration: 30 day, Stop date: 05/21/15 1:07:00 Notes: Do not exceed 4gm/day of acetaminophen. (Same as: Tylenol with Codeine # 3) Start Date: 04/21/15 Stop Date: 04/24/15 Status: DiscontinuedALPRAZOLam 0.5 mg, 1 tab, Route: PO, Drug form: TAB, Bedtime, Dosing Weight 130.004, kg, PRN Anxiety, Start date: 04/21/15 1:30:00, Duration: 30 day, Stop date: 1:29:00 Notes: With food or milk(Same as: Xanax) Start Date: 04/21/15 Stop Date: 04/24/15 Status: DiscontinuedAMIODarone 200 mg, 1 tab, Route: PO, Drug form: TAB, Daily, Dosing Weight 130.004, kg, Start date: 04/21/15 9:00:00, Duration: 30 day, Stop date: 05/20/15 9:00:00 Notes: (Same as: Cordarone) Start Date: 04/21/15 Stop Date: 04/24/15 Status: DiscontinuedamLODIPine 10 mg, 1 tab, Route: PO, Drug form: TAB, Daily, Dosing Weight 130.004, kg, Start date: 04/21/15 9:00:00, Duration: 30 day, Stop date: 05/20/15 9:00:00 Notes: (Same as: Norvasc) Start Date: 04/21/15 Stop Date: 04/24/15 Status: DiscontinuedamLODIPine 10 mg oral tablet 10 mg=1 tab, PO, Daily, 0 Refill(s) Start Date: 04/21/15 Status: Orderedamoxicillin-clavulanate 875 mg-125 mg oral tablet 1 tab, Route: PO, Drug Form: TAB, Dosing Weight 130.004, kg, BID, Start date: 9:00:00, Duration: 30 day, Stop date: 05/20/15 21:00:00 Notes: With food.(Same as: Augmentin 875) Start Date: 04/21/15 Stop Date: 04/24/15 Status: Discontinuedamoxicillin-clavulanate 875 mg-125 mg oral tablet 1 tab, PO, BID, # 20 tab, 0 Refill(s) Start Date: 04/21/15 Stop Date: 04/23/15 Status: Discontinuedatorvastatin 40 mg, 1 tab, Route: PO, Drug form: TAB, Bedtime, Dosing Weight 130.004, kg, Start date: 04/21/15 21:00:00, Duration: 30 day, Stop date: 05/20/15 21:00:00 Notes: (Same as: Lipitor) Start Date: 04/21/15 Stop Date: 04/22/15 Status: DiscontinuedBD Normal Saline Flush 10 mL, Route: IVP, Drug Form: INJ, PRN, PRN Line Flush, Start date: 04/21/15 1: 09:00, Duration: 30 day, Stop date: 05/21/15 1:08:00 Notes: (Same as: BD Posiflush) Start Date: 04/21/15 Stop Date: 04/24/15 Status: DiscontinuedceFAZolin 1 gm, 100 mL, Route: IVPB, Drug form: INJ, ABXQ8H, Dosing Weight 130.004, kg, Start date: 04/23/15 17:00:00, Duration: 3 doses or times, Stop date: 04/24/15 9 :00:00 Start Date: 04/23/15 Stop Date: 04/24/15 Status: Completedcolchicine 0.6 mg oral tablet 0.6 mg, 1 tab, Route: PO, Drug form: TAB, Daily, Dosing Weight 130.004, kg, PRN Pain Score 4-6, Start date: 04/21/15 12:20:00, Stop date: 05/21/15 12:19:00 Start Date: 04/21/15 Stop Date: 04/24/15 Status: Discontinuedcolchicine 0.6 mg oral tablet 0.6 mg=1 tab, PO, Daily, PRN Other -See Comment, For GOUT flare up, 0 Refill(s) Start Date: 04/21/15 Status: Orderedcolchicine 0.6 mg oral tablet 0.6 mg, 1 tab, Route: PO, Drug form: TAB, Daily, Dosing Weight 130.004, kg, Start date: 04/21/15 9:00:00, Duration: 30 day, Stop date: 05/20/15 9:00:00 Start Date: 04/21/15 Stop Date: 04/21/15 Status: Deletedcolchicine 0.6 mg oral tablet 0.6 mg=1 tab, PO, 0 Refill(s) Start Date: 04/21/15 Stop Date: 04/21/15 Status: DeletedCombivent inhalation aerosol with adapter 2 puff, Route: INHALER, Drug Form: AERO, Dosing Weight 130.004, kg, BID, PRN Shortness of breath, Start date: 04/21/15 1:30:00, Duration: 30 day, Stop date: 05/21/15 1:29:00 Notes: Same as: Combivent Respimat Start Date: 04/21/15 Stop Date: 04/24/15 Status: Discontinuedfurosemide 40 mg oral tablet 40 mg=1 tab, PO, BID, 0 Refill(s) Start Date: 04/21/15 Status: Orderedfurosemide 40 mg oral tablet 40 mg, 1 tab, Route: PO, Drug form: TAB, BID, Dosing Weight 130.004, kg, Start date: 04/21/15 9:00:00, Duration: 30 day, Stop date: 05/20/15 17:00:00 Notes: (Same as: Lasix) May cause GI upset. Give with food or milk. Start Date: 04/21/15 Stop Date: 04/24/15 Status: Discontinuedgabapentin 300 mg oral capsule 600 mg, 2 cap, Route: PO, Drug form: CAP, TID, Dosing Weight 130.004, kg, Start date: 04/21/15 8:00:00, Duration: 30 day, Stop date: 05/21/15 0:00:00 Notes: (Same as: Neurontin) Start Date: 04/21/15 Stop Date: 04/24/15 Status: DiscontinuedhydrALAZINE 50 mg, PO, TID, 0 Refill(s) Start Date: 04/21/15 Status: OrderedhydrALAZINE 50 mg, 1 tab, Route: PO, Drug form: TAB, TID, Dosing Weight 130.004, kg, Start date: 04/21/15 8:00:00, Duration: 30 day, Stop date: 05/21/15 0:00:00 Notes: (Same as: Apresoline) May interfere w/enteral feedings Take With Food Start Date: 04/21/15 Stop Date: 04/24/15 Status: DiscontinuedKeflex 500 mg, Route: PO, Drug form: CAP, ABXQ6H, Dosing Weight 130.004, kg, Start date : 04/24/15 16:14:00,Duration: 30 day, Stop date: 05/24/15 10:14:00 Start Date: 04/24/15 Stop Date: 04/23/15 Status: CanceledKeflex 500 mg oral capsule 500 mg=1 cap, PO, QID, X 5 day, # 20 cap, 0 Refill(s) Start Date: 04/24/15 Stop Date: 04/29/15 Status: OrderedLovenox 40 mg, 0.4 mL, Route: SUB-Q, Drug form: INJ, Daily, Start date: 04/21/15 9:00:00 , Duration: 30 day, Stop date: 05/20/15 9:00:00 Notes: (Same as: Lovenox) Start Date: 04/21/15 Stop Date: 04/23/15 Status: DiscontinuedLyrica 50 mg, 1 cap, Route: PO, Drug form: CAP, Daily, Dosing Weight 130.004, kg, PRN Other -See Comment, Start date: 04/21/15 1:35:00, Duration: 30 day, Stop date: 05/21/15 1:34:00 Notes: Same as Lyrica Start Date: 04/21/15 Stop Date: 04/24/15 Status: DiscontinuedLyrica 50 mg oral capsule 50 mg=1 cap, PO, PRN, daily PRN, 0 Refill(s) Start Date: 04/21/15 Status: Orderedmetoprolol 50 mg, 1 tab, Route: PO, Drug form: ERTAB, BID, Start date: 04/21/15 9:00:00, Duration: 30 day, Stopdate: 05/20/15 21:00:00 Notes: (Same as: Toprol XL) May split tab, but do not crush. Start Date: 04/21/15 Stop Date: 04/22/15 Status: Discontinuedmorphine Sulfate 1 mg, 0.5 mL, Route: IV, Drug form: INJ, Q4H, PRN Other -See Comment, Start date : 04/21/15 22:29:00,Duration: 30 day, Stop date: 05/21/15 22:28:00 Notes: (Same as:MORPhine Sulfate) Start Date: 04/21/15 Stop Date: 04/24/15 Status: Discontinuednitroglycerin 2% topical ointment 0.5 inch, Route: TOP, Drug form: OINT, Q6H, Start date: 04/21/15 1:12:00, Duration: 30 day, Stop date: 05/21/15 0:00:00 Notes: 1 gram is approximately 1 inch of nitroglycerin ointment (20 mg NTG per gram) (Same as:Nitro-Bid) Start Date: 04/21/15 Stop Date: 04/23/15 Status: DiscontinuedProtonix 40 mg, 1 tab, Route: PO, Drug form: ECTAB, Before Dinner, Start date: 04/21/15 1 :11:00, Duration: 30day, Stop date: 05/20/15 16:30:00 Notes: Tablet should not be chewed or crushed.(Same as: Protonix) Start Date: 04/21/15 Stop Date: 04/24/15 Status: DiscontinuedSenokot 17.2 mg, 2 tab, Route: PO, Drug form: TAB, Bedtime, Start date: 04/21/15 21:00: 00, Duration: 30 day,Stop date: 05/20/15 21:00:00 Notes: (Same as: Senokot) Start Date: 04/21/15 Stop Date: 04/24/15 Status: DiscontinuedSenokot S 2 tab, PO, Bedtime, 0 Refill(s) Start Date: 04/21/15 Status: OrderedSenokot S 2 tab, Route: PO, Dosing Weight 130.004, kg, Bedtime, Start date: 04/21/15 21:00 :00, Duration: 30 day, Stop date: 05/20/15 21:00:00 Start Date: 04/21/15 Stop Date: 04/21/15 Status: DeletedSodium Chloride 0.9% IV 250 mL, Route: IVPB, Start date: 04/21/15 1:09:00, Duration: 30 day, Stop date: 05/21/15 1:08:00, PRN Line Flush Start Date: 04/21/15 Stop Date: 04/24/15 Status: Discontinued Results ELECTROLYTES Most recent to oldest [Reference Range]: 1 2 3 Sodium Lvl [135-145 mEq/L] 144 mEq/L (04/21/15 3:10 AM) Potassium Lvl [3.5-5.1 mEq/L] 3.6 mEq/L (04/21/15 3:10 AM) Chloride Lvl [95-109 mEq/L] 109 mEq/L (04/21/15 3:10 AM) CO2 [24-32 mEq/L] 27 mEq/L (04/21/15 3:10 AM) AGAP [10.0-20.0 mEq/L] 11.6 mEq/L (04/21/15 3:10 AM) CHEM PANEL Most recent to oldest [Reference Range]: 1 2 3 Creatinine Lvl [0.50-1.40 mg/dL] 1.70 mg/dL *HI* (04/21/15 3:10 AM) eGFR 43 mL/min/1.73m2 1 *NA* (04/21/15 3:10 AM) BUN [7-22 mg/dL] 20 mg/dL (04/21/15 3:10 AM) B/C Ratio [6-25] 12 (04/21/15 3:10 AM) Glucose Lvl [70-99 mg/dL] 97 mg/dL (04/21/15 3:10 AM) Total Protein [6.4-8.4 g/dL] 6.9 g/dL (04/21/15 3:10 AM) Albumin Lvl [3.5-5.0 g/dL] 3.1 g/dL *LOW* (04/21/15 3:10 AM) Globulin [2.0-4.0 g/dL] 3.8 g/dL (04/21/15 3:10 AM) A/G Ratio [0.7-1.6] 0.8 (04/21/15 3:10 AM) Calcium Lvl [8.5-10.5 mg/dL] 8.2 mg/dL *LOW* (04/21/15 3:10 AM) Phosphorus [2.5-4.5 mg/dL] 2.2 mg/dL *LOW* (04/21/15 3:10 AM) Magnesium Lvl [1.8-2.4 mg/dL] 2.0 mg/dL (04/21/15 3:10 AM) ALT [0-65 unit/L] 18 unit/L (04/21/15 3:10 AM) AST [0-37 unit/L] 24 unit/L (04/21/15 3:10 AM) Alk Phos [39-136 unit/L] 73 unit/L (04/21/15 3:10 AM) Bili Total [0.2-1.3 mg/dL] 0.5 mg/dL (04/21/15 3:10 AM) 1Result Comment: The eGFR is calculated [...] estimated BMI.CARDIAC ENZYMES Most recent to oldest 1 2 3 [Reference Range]: Total CK [12-191 unit/L] 176 unit/L 133 unit/L 131 unit/L (04/21/15 6:26 PM) (04/21/15 11:11 AM) (04/21/15 3:10 AM) CK MB [0.5-3.6 ng/mL] 1.6 ng/mL 2.3 ng/mL 1.8 ng/mL (04/21/15 6:26 PM) (04/21/15 11:11 AM) (04/21/15 3:10 AM) CK MB Index [0.0-2.5] 0.9 1.7 1.4 (04/21/15 6:26 PM) (04/21/15 11:11 AM) (04/21/15 3:10 AM) Troponin-I [0.00-0.40 0.20 ng/mL 0.24 ng/mL 0.24 ng/mL ng/mL] (04/21/15 6:26 PM) (04/21/15 11:11 AM) (04/21/15 3:10 AM) BNP [<=100 pg/mL] 118 pg/mL *HI* (04/21/15 3:10 AM) LIPIDS Most recent to oldest [Reference Range]: 1 2 3 CHD Risk [4.00-7.30] 2.04 *LOW* (04/21/15 3:10 AM) Chol [<=199 mg/dL] 92 mg/dL (04/21/15 3:10 AM) Trig [<=149 mg/dL] 70 mg/dL (04/21/15 3:10 AM) HDL [>=61 mg/dL] 45 mg/dL *LOW* (04/21/15 3:10 AM) LDL (Calculated) [<=99 mg/dL] 33 mg/dL (04/21/15 3:10 AM) VLDL 14 *NA* (04/21/15 3:10 AM) SPECIAL CHEMISTRY Most recent to oldest [Reference Range]: 1 2 3 Hgb A1C [<=5.6 %] 5.7 % *HI* (04/21/15 3:10 AM) HEMATOLOGY Most recent to oldest [Reference Range]: 1 2 3 WBC [3.7-10.4 K/CMM] 4.8 K/CMM (04/21/15 3:10 AM) RBC [4.70-6.10 M/CMM] 3.94 M/CMM *LOW* (04/21/15 3:10 AM) Hgb [14.0-18.0 g/dL] 11.1 g/dL *LOW* (04/21/15 3:10 AM) Hct [42.0-54.0 %] 35.0 % *LOW* (04/21/15 3:10 AM) MCV [80.0-94.0 fL] 88.7 fL (04/21/15 3:10 AM) MCH [27.0-31.0 pg] 28.3 pg (04/21/15 3:10 AM) MCHC [32.0-36.0 g/dL] 31.9 g/dL *LOW* (04/21/15 3:10 AM) RDW [11.5-14.5 %] 17.7 % *HI* (04/21/15 3:10 AM) Platelet [133-450 K/CMM] 85 K/CMM *LOW* (04/21/15 3:10 AM) MPV [7.4-10.4 fL] 10.2 fL (04/21/15 3:10 AM) Segs [45.0-75.0 %] 61.4 % (04/21/15 3:10 AM) Lymphocytes [20.0-40.0 %] 29.8 % (04/21/15 3:10 AM) Monocytes [2.0-12.0 %] 5.3 % (04/21/15 3:10 AM) Eosinophils [0.0-4.0 %] 3.2 % (04/21/15 3:10 AM) Basophils [0.0-1.0 %] 0.3 % (04/21/15 3:10 AM) Segs-Bands # [1.5-8.1 K/CMM] 3.0 K/CMM (04/21/15 3:10 AM) Lymphocytes # [1.0-5.5 K/CMM] 1.4 K/CMM (04/21/15 3:10 AM) Monocytes # [0.0-0.8 K/CMM] 0.3 K/CMM (04/21/15 3:10 AM) Eosinophils # [0.0-0.5 K/CMM] 0.2 K/CMM (04/21/15 3:10 AM) Basophils # [0.0-0.2 K/CMM] 0.0 K/CMM (04/21/15 3:10 AM) POC PT [12.0-14.7 seconds] 12.2 seconds (04/23/15 2:07 PM) POC INR [0.9-1.2] 1.0 (04/23/15 2:07 PM) Immunizations No data available for this [...]
--- OUTSIDE RECORDS SUMMARY | 2019-01-23 10:01 | XMS REPORT | Summary of Care ---
:1935 Author Organization [facility] Address [address], [place] [address]- Encounter [facility] Alyson(GHAZALA) [id number] Date(s): 05/28/15 - 05/28/15 [facility] [address] [place] [address]- Discharge Diagnosis: Chronic renal insufficiency Discharge Diagnosis: Acute urinary tract infection Discharge Disposition: Home Attending Physician: Elizabeth Catalan DO Vital Signs Most recent to oldest [Reference Range]: 1 2 Temperature Oral [96.4-99.1 DegF] 97.9 DegF 97.8 DegF (05/28/15 5:23 PM) (05/28/15 3:05 PM) Blood Pressure [90-140/60-90 mmHg] 148/77 mmHg 167/71 mmHg *HI* *HI* (05/28/15 5:23 PM) (05/28/15 3:05 PM) Respiratory Rate [14-20 BRMIN] 18 BRMIN 18 BRMIN (05/28/15 5:23 PM) (05/28/15 3:05 PM) Peripheral Pulse Rate [60-100 bpm] 72 bpm 76 bpm (05/28/15 5:23 PM) (05/28/15 3:05 PM) Weight 130.5 kg (05/28/15 3:05 PM) Problem List Condition Effective Dates Status Health Status Informant AF - Atrial fibrillation(Confirmed) Active Asbestosis(Confirmed) Active Atrial fibrillation(Confirmed) Active Cardiac catheterization(Confirmed) 04/28/11 Active CHF - Congestive heart Active failure(Confirmed) CVA - Cerebrovascular Resolved accident(Confirmed) Diabetes mellitus(Confirmed)1, 2 Active Dizziness(Confirmed) Active DVT - Deep vein thrombosis of lower Active limb(Confirmed) Fusion(Confirmed) Active Gout(Confirmed) Active HTN - Hypertension(Confirmed) Active PR (myocardial Active infarction)(Confirmed) Monoclonal gammopathy(Confirmed)3 Active Pain(Confirmed) Active Pneumonia(Confirmed) Resolved Sleep apnea(Confirmed) Active 1PATIENT STATES HE IS NOT A [id number] [id number] platelets Allergies, Adverse Reactions, Alerts Substance Reaction Severity Status Bactrim hives Severe Active NKFA Active Plavix Active sulfa drugs Active Medications Macrobid 100 mg oral capsule 100 mg=1 cap, PO, BID, X 10 day, # 20 cap, 0 Refill(s) Start Date: 05/28/15 Stop Date: 06/07/15 Status: OrderedRocephin + Sodium Chloride 0.9% IV 100 mL 1 gm, Route: IVPB, ONCE, Dosing Weight 130.5, kg, Priority: STAT, Start date: 16:12:00, Stop date: 05/28/15 16:12:00 Notes: (Same As: Rocephin).Use with 100 mL NS and infuse over 30 min MEDICATION WASTE Product Size: 1000 mgProduct Wasted: ___ mg Start Date: 05/28/15 Stop Date: 05/28/15 Status: Completed Results ELECTROLYTES Most recent to oldest [Reference Range]: 1 Sodium Lvl [135-145 mEq/L] 138 mEq/L (05/28/15 3:44 PM) Potassium Lvl [3.5-5.1 mEq/L] 4.3 mEq/L (05/28/15 3:44 PM) Chloride Lvl [95-109 mEq/L] 104 mEq/L (05/28/15 3:44 PM) CO2 [24-32 mEq/L] 28 mEq/L (05/28/15 3:44 PM) AGAP [10.0-20.0 mEq/L] 10.3 mEq/L (05/28/15 3:44 PM) CHEM PANEL Most recent to oldest [Reference Range]: 1 Creatinine Lvl [0.50-1.40 mg/dL] 1.60 mg/dL *HI* (05/28/15 3:44 PM) eGFR 47 mL/min/1.73m2 1 *NA* (05/28/15 3:44 PM) BUN [7-22 mg/dL] 27 mg/dL *HI* (05/28/15 3:44 PM) B/C Ratio [6-25] 17 (05/28/15 3:44 PM) Glucose Lvl [70-99 mg/dL] 82 mg/dL (05/28/15 3:44 PM) Total Protein [6.4-8.4 g/dL] 7.7 g/dL (05/28/15 3:44 PM) Albumin Lvl [3.5-5.0 g/dL] 3.5 g/dL (05/28/15 3:44 PM) Globulin [2.0-4.0 g/dL] 4.2 g/dL *HI* (05/28/15 3:44 PM) A/G Ratio [0.7-1.6] 0.8 (05/28/15 3:44 PM) Calcium Lvl [8.5-10.5 mg/dL] 8.5 mg/dL (05/28/15 3:44 PM) ALT [0-65 unit/L] 12 unit/L (05/28/15 3:44 PM) AST [0-37 unit/L] 17 unit/L (05/28/15 3:44 PM) Alk Phos [39-136 unit/L] 76 unit/L (05/28/15 3:44 PM) Bili Total [0.2-1.3 mg/dL] 0.4 mg/dL (05/28/15 3:44 PM) 1Result Comment: The eGFR is calculated [...] eGFR should be multiplied by the estimated BMI.URINE AND STOOL Most recent to oldest [Reference Range]: 1 UA Turbidity [Clear] Slight Cloudy (05/28/15 3:44 PM) UA Color [Yellow] Yellow *NA* (05/28/15 3:44 PM) UA pH [5.0-8.0] 7.0 (05/28/15 3:44 PM) UA Spec Grav [<=1.030] 1.015 (05/28/15 3:44 PM) UA Glucose [Negative] Negative (05/28/15 3:44 PM) UA Blood [Negative] Moderate *ABN* (05/28/15 3:44 PM) UA Ketones [Negative] Negative *NA* (05/28/15 3:44 PM) UA Protein [Negative mg/dL] 30 mg/dL *ABN* (05/28/15 3:44 PM) UA Urobilinogen [0.1-1.0 EU/dL] 0.2 EU/dL (05/28/15 3:44 PM) UA Bili [Negative] Negative *NA* (05/28/15 3:44 PM) UA Leuk Est [Negative] Large *ABN* (05/28/15 3:44 PM) UA Nitrite [Negative] Positive *ABN* (05/28/15 3:44 PM) UA WBC [None Seen /HPF] >100 /HPF *ABN* (05/28/15 3:44 PM) UA RBC [0-2] None Seen (05/28/15 3:44 PM) UA Bacteria [None Seen /HPF] Few /HPF (05/28/15 3:44 PM) UA Sq Epi [Few /LPF] Rare /LPF (05/28/15 3:44 PM) UA Mucus [None Seen] None Seen (05/28/15 3:44 PM) HEMATOLOGY Most recent to oldest [Reference Range]: 1 WBC [3.7-10.4 K/CMM] 5.9 K/CMM (05/28/15 3:44 PM) RBC [4.70-6.10 M/CMM] 4.22 M/CMM *LOW* (05/28/15 3:44 PM) Hgb [14.0-18.0 g/dL] 12.2 g/dL *LOW* (05/28/15 3:44 PM) Hct [42.0-54.0 %] 36.7 % *LOW* (05/28/15 3:44 PM) MCV [80.0-94.0 fL] 87.0 fL (05/28/15 3:44 PM) MCH [27.0-31.0 pg] 28.9 pg (05/28/15 3:44 PM) MCHC [32.0-36.0 g/dL] 33.3 g/dL (05/28/15 3:44 PM) RDW [11.5-14.5 %] 18.5 % *HI* (05/28/15 3:44 PM) Platelet [133-450 K/CMM] 72 K/CMM *LOW* (05/28/15 3:44 PM) MPV [7.4-10.4 fL] 9.8 fL (05/28/15 3:44 PM) Segs [45.0-75.0 %] 60.9 % (05/28/15 3:44 PM) Lymphocytes [20.0-40.0 %] 28.5 % (05/28/15 3:44 PM) Monocytes [2.0-12.0 %] 8.0 % (05/28/15 3:44 PM) Eosinophils [0.0-4.0 %] 2.3 % (05/28/15 3:44 PM) Basophils [0.0-1.0 %] 0.3 % (05/28/15 3:44 PM) Segs-Bands # [1.5-8.1 K/CMM] 3.6 K/CMM (05/28/15 3:44 PM) Lymphocytes # [1.0-5.5 K/CMM] 1.7 K/CMM (05/28/15 3:44 PM) Monocytes # [0.0-0.8 K/CMM] 0.5 K/CMM (05/28/15 3:44 PM) Eosinophils # [0.0-0.5 K/CMM] 0.1 K/CMM (05/28/15 3:44 PM) Basophils # [0.0-0.2 K/CMM] 0.0 K/CMM (05/28/15 3:44 PM) PT [12.0-14.7 seconds] 14.7 seconds (05/28/15 3:44 PM) INR [0.85-1.17] 1.12 (05/28/15 3:44 PM) PTT [22.9-35.8 seconds] 23.6 seconds (05/28/15 3:44 PM) Immunizations No data available for this [...]
--- OUTSIDE RECORDS SUMMARY | 2019-01-23 10:01 | XMS REPORT | Summary of Care ---
:1935 Author Organization [facility] Address [address], [place] [address]- Encounter [facility] Kylahr_khoi([facility]) [id number] Date(s): 01/17/16 - 01/18/16 [facility] [address] [place] [address]- Discharge Disposition: Home or Self Care Attending Physician: Alverto Vaughan MD Admitting Physician: Alverto Vaughan MD Vital Signs Most recent to oldest 1 2 3 [Reference Range]: Height 193.04 cm (01/17/16 8:05 PM) Temperature Oral [96.4-99.1 98.7 DegF 98.2 DegF 98.1 DegF DegF] (01/18/16 8:00 AM) (01/18/16 4:06 AM) (01/17/16 10:54 PM) Blood Pressure [90-140/60-90 117/69 mmHg 113/64 mmHg mmHg] (01/18/16 4:06 AM) (01/17/16 10:54 PM) Systolic Blood Pressure [90-140 119 mmHg mmHg] (01/17/16 7:55 PM) Diastolic Blood Pressure [60-90 79 mmHg mmHg] (01/17/16 7:55 PM) Respiratory Rate [14-20 BRMIN] 18 BRMIN 18 BRMIN 18 BRMIN (01/18/16 8:00 AM) (01/18/16 4:06 AM) (01/17/16 10:54 PM) Peripheral Pulse Rate [60-100 98 bpm 103 bpm 100 bpm bpm] (01/18/16 8:00 AM) *HI* (01/17/16 10:54 PM) (01/18/16 4:06 AM) Weight 136.364 kg 138.182 kg (01/17/16 8:05 PM) (01/17/16 4:23 PM) Body Mass Index 36.59 m2 (01/17/16 8:05 PM) Problem List Condition Effective Dates Status Health Status Informant AF - Atrial fibrillation(Confirmed) Active Asbestosis(Confirmed) Active Atrial fibrillation(Confirmed) Active Cardiac catheterization(Confirmed) 04/28/11 Active CHF - Congestive heart Active failure(Confirmed) CVA - Cerebrovascular Resolved accident(Confirmed) Diabetes mellitus(Confirmed)1, 2, 3 Resolved Dizziness(Confirmed) Active DVT - Deep vein thrombosis of lower Active limb(Confirmed) Fusion(Confirmed) Active Gout(Confirmed) Active HTN - Hypertension(Confirmed) Active WI (myocardial Active infarction)(Confirmed) Monoclonal gammopathy(Confirmed)4 Active Pain(Confirmed) Active Pneumonia(Confirmed) Resolved Sleep apnea(Confirmed) Active 1pt states he is not a [id number] STATES HE IS NOT A [id number] ounc4bcy platelets Allergies, Adverse Reactions, Alerts Substance Reaction Severity Status Bactrim hives Severe Active NKFA Active Plavix Active sulfa drugs Active Medications acetaminophen 650 mg, 2 tab, Route: PO, Drug form: TAB, Q4H, Dosing Weight 138.182, kg, PRN Pain 1-3/Temp > 100.4 F, Start date: 01/17/16 17:59:00 CDT, Duration: 30 day, Stop date: 02/16/16 17:58:00 CDT Notes: Do not exceed 4 gm/day. (Same as: Tylenol) Start Date: 01/17/16 Stop Date: 01/18/16 Status: Discontinuedacetaminophen-hydrocodone 325 mg-5 mg oral tablet 2 tab, Route: PO, Drug Form: TAB, Dosing Weight 138.182, kg, Q4H, PRN Pain Score 7-10, Start date: 01/17/16 17:59:00 CDT, Duration: 30 day, Stop date: 01/23 17:58:00 CDT Notes: (Same as: Baldwin 325/5) Do not exceed 4gm/day of acetaminophen. Start Date: 01/17/16 Stop Date: 01/18/16 Status: Discontinuedallopurinol 100 mg oral tablet 100 mg=1 tab, PO, Daily, # 90 tab, 1 Refill(s) Start Date: 01/17/16 Status: OrderedALPRAZOLam 0.5 mg oral tablet 0.5 mg=1 tab, PO, Bedtime, # 30 tab, 0 Refill(s) Start Date: 01/17/16 Stop Date: 02/16/16 Status: Orderedaspirin 324 mg, 4 tab, Route: PO, Drug form: CHEWTAB, ONCE, Dosing Weight 138.182, kg, Priority: STAT, Startdate: 01/17/16 16:29:00 CDT, Stop date: 01/17/16 16:29:00 CDT Notes: Take with food. Start Date: 01/17/16 Stop Date: 01/17/16 Status: Completedaspirin 81 mg, 1 tab, Route: CHEW, Drug form: CHEWTAB, Daily, Dosing Weight 138.182, kg , Priority: Routine, Start date: 01/18/16 9:00:00 CDT, Duration: 30 day, Stop date: 02/16/16 9:00:00 CDT Notes: Take with food. Start Date: 01/18/16 Stop Date: 01/18/16 Status: Discontinueddocusate 100 mg, 1 cap, Route: PO, Drug form: CAP, BID, Dosing Weight 138.182, kg, PRN Constipation, Start date: 01/17/16 17:59:00 CDT, Duration: 30 day, Stop date: 17:58:00 CDT Notes: (Same as: Colace) (Do Not Crush) Start Date: 01/17/16 Stop Date: 01/18/16 Status: DiscontinuedDuoNeb inhalation solution 3 ml, Route: NEB, Drug Form: SOLN, Dosing Weight 138.182, kg, PRN, PRN Respiratory Protocol, Start date: 01/17/16 18:01:00 CDT, Duration: 30 day, Stop date: 02/16/16 18:00:00 CDT Notes: (Same as: Duoneb) Start Date: 01/17/16 Stop Date: 01/18/16 Status: Discontinuedenoxaparin 40 mg, 0.4 mL, Route: SUB-Q, Drug form: INJ, [id number], Dosing Weight 138.182, kg , Start date: 01/17/16 18:00:00 CDT, Duration: 30 day, Stop date: 02/15/16 18:00 :00 CDT Notes: (Same as: Lovenox) Start Date: 01/17/16 Stop Date: 01/18/16 Status: DiscontinuedLasix 40 mg, 4 mL, Route: IVP, Drug form: INJ, Daily, Dosing Weight 138.182, kg, Priority: Routine, Start date: 01/18/16 9:00:00 CDT, Duration: 30 day, Stop date : 02/16/16 9:00:00 CDT Notes: (Same as: Lasix) MEDICATION WASTE Product Size: 40 mgProduct Wasted: ___ mg Start Date: 01/18/16 Stop Date: 01/18/16 Status: DiscontinuedLasix 60 mg, 6 mL, Route: IVP, Drug form: INJ, ONCE, Dosing Weight 138.182, kg, Priority: STAT, Start date: 01/17/16 17:41:00 CDT, Stop date: 01/17/16 17:41:00 CDT Notes: (Same as: Lasix) MEDICATION WASTE Product Size: 40 mgProduct Wasted: __20_ mg Start Date: 01/17/16 Stop Date: 01/17/16 Status: Completedlosartan 100 mg oral tablet 100 mg=1 tab, PO, Daily, # 90 tab, 1 Refill(s) Start Date: 01/17/16 Status: OrderedLyrica 200 mg oral capsule 200 mg=1 cap, PO, BID, # 30 cap, 1 Refill(s) Start Date: 01/17/16 Status: Orderedmorphine Sulfate 2 mg, 1 mL, Route: IVP, Drug form: INJ, Q4H, Dosing Weight 138.182, kg, PRN Pain Score 7-10, Start date: 01/17/16 17:59:00 CDT, Duration: 30 day, Stop date : 02/16/16 17:58:00 CDT Notes: (Same as:MORPhine Sulfate) Start Date: 01/17/16 Stop Date: 01/18/16 Status: Discontinuednitroglycerin 0.4 mg, 1 tab, Route: SL, Drug form: TAB, Q5Min, Dosing Weight 138.182, kg, PRN Chest Pain, Start date: 01/17/16 16:29:00 CDT, Duration: 3 doses or times, Stop date: Limited # of times Notes: (Same as:Nitroquick, Nitrostat)"Do Not Crush" Sublingual tablet Start Date: 01/17/16 Stop Date: 01/18/16 Status: Discontinuednitroglycerin 0.4 mg sublingual tablet 0.4 mg, 1 tab, Route: SL, Drug form: TAB, Q5Min, Dosing Weight 138.182, kg, PRN as needed for chest pain, Start date: 01/17/16 18:01:00 CDT, Duration: 30 day, Stop date: 02/16/16 18:00:00 CDT Notes: (Same as:Nitroquick, Nitrostat)"Do Not Crush" Sublingual tablet Start Date: 01/17/16 Stop Date: 01/18/16 Status: Discontinuedondansetron 4 mg, 2 mL, Route: IVP, Drug form: INJ, Q6H, Dosing Weight 138.182, kg, PRN Nausea & Vomiting, Start date: 01/17/16 17:59:00 CDT, Duration: 30 day, Stop date: 02/16/16 17:58:00 CDT Notes: (Same as: Zofran) MEDICATION WASTE Product Size: 4 mgProduct Wasted: ___ mg Start Date: 01/17/16 Stop Date: 01/18/16 Status: DiscontinuedSaline Flush 0.9% 10 mL, Route: IVP, Drug Form: INJ, Dosing Weight 138.182, kg, PRN, PRN Line Flush, Start date: 01/17/16 16:29:00 CDT, Duration: 30 day, Stop date: 02/16/16 16:28:00 CDT Notes: (Same as: BD Posiflush) Start Date: 01/17/16 Stop Date: 01/18/16 Status: Discontinued Results ELECTROLYTES Most recent to oldest [Reference Range]: 1 2 3 Sodium Lvl [135-145 mEq/L] 143 mEq/L 142 mEq/L (01/18/16 4:41 AM) (01/17/16 4:51 PM) Potassium Lvl [3.5-5.1 mEq/L] 4.1 mEq/L 3.9 mEq/L (01/18/16 4:41 AM) (01/17/16 4:51 PM) Chloride Lvl [95-109 mEq/L] 105 mEq/L 106 mEq/L (01/18/16 4:41 AM) (01/17/16 4:51 PM) CO2 [24-32 mEq/L] 30 mEq/L 28 mEq/L (01/18/16 4:41 AM) (01/17/16 4:51 PM) AGAP [10.0-20.0 mEq/L] 12.1 mEq/L 11.9 mEq/L (01/18/16 4:41 AM) (01/17/16 4:51 PM) CHEM PANEL Most recent to oldest [Reference Range]: 1 2 3 Creatinine Lvl [0.50-1.40 mg/dL] 2.05 mg/dL 2.02 mg/dL *HI* *HI* (01/18/16 4:41 AM) (01/17/16 4:51 PM) eGFR 34 mL/min/1.73m2 1 35 mL/min/1.73m2 2 *NA* *NA* (01/18/16 4:41 AM) (01/17/16 4:51 PM) BUN [7-22 mg/dL] 27 mg/dL 27 mg/dL *HI* *HI* (01/18/16 4:41 AM) (01/17/16 4:51 PM) B/C Ratio [6-25] 13 (01/17/16 4:51 PM) Glucose Lvl [70-99 mg/dL] 93 mg/dL 109 mg/dL (01/18/16 4:41 AM) *HI* (01/17/16 4:51 PM) Total Protein [6.4-8.4 g/dL] 8.2 g/dL (01/17/16 4:51 PM) Albumin Lvl [3.5-5.0 g/dL] 3.1 g/dL *LOW* (01/17/16 4:51 PM) Globulin [2.7-4.2 g/dL] 5.1 g/dL *HI* (01/17/16 4:51 PM) A/G Ratio [0.7-1.6] 0.6 *LOW* (01/17/16 4:51 PM) Calcium Lvl [8.5-10.5 mg/dL] 8.5 mg/dL 8.1 mg/dL (01/18/16 4:41 AM) *LOW* (01/17/16 4:51 PM) ALT [0-65 unit/L] 14 unit/L (01/17/16 4:51 PM) AST [0-37 unit/L] 12 unit/L (01/17/16 4:51 PM) Alk Phos [39-136 unit/L] 82 unit/L (01/17/16 4:51 PM) Bili Total [0.2-1.3 mg/dL] 0.3 mg/dL (01/17/16 4:51 PM) 1Result Comment: The eGFR is calculated [...] 3 [Reference Range]: Total CK [12-191 unit/L] 91 unit/L 95 unit/L 107 unit/L (01/18/16 4:41 AM) (01/17/16 9:20 PM) (01/17/16 4:51 PM) CK MB [0.5-3.6 ng/mL] 0.9 ng/mL 1.2 ng/mL 1.6 ng/mL (01/18/16 4:41 AM) (01/17/16 9:20 PM) (01/17/16 4:51 PM) CK MB Index [0.0-2.5] 1.0 1.3 1.5 (01/18/16 4:41 AM) (01/17/16 9:20 PM) (01/17/16 4:51 PM) Troponin-I [0.00-0.40 ng/mL] 0.17 ng/mL 0.16 ng/mL 0.18 ng/mL (01/18/16 4:41 AM) (01/17/16 9:20 PM) (01/17/16 4:51 PM) BNP [<=100 pg/mL] 238 pg/mL *HI* (01/17/16 4:51 PM) LIPIDS Most recent to oldest [Reference Range]: 1 2 3 CHD Risk [4.00-7.30] 2.00 *LOW* (01/18/16 4:41 AM) Chol [<=199 mg/dL] 102 mg/dL (01/18/16 4:41 AM) Trig [<=149 mg/dL] 84 mg/dL (01/18/16 4:41 AM) HDL [>=61 mg/dL] 51 mg/dL *LOW* (01/18/16 4:41 AM) LDL (Calculated) [<=99 mg/dL] 34 mg/dL (01/18/16 4:41 AM) VLDL 17 *NA* (01/18/16 4:41 AM) HEMATOLOGY Most recent to oldest [Reference Range]: 1 2 3 WBC [3.7-10.4 K/CMM] 5.2 K/CMM 5.5 K/CMM (01/18/16 4:41 AM) (01/17/16 4:51 PM) RBC [4.70-6.10 M/CMM] 3.76 M/CMM 3.73 M/CMM *LOW* *LOW* (01/18/16 4:41 AM) (01/17/16 4:51 PM) Hgb [14.0-18.0 g/dL] 10.5 g/dL 10.4 g/dL *LOW* *LOW* (01/18/16 4:41 AM) (01/17/16 4:51 PM) Hct [42.0-54.0 %] 32.9 % 32.7 % *LOW* *LOW* (01/18/16 4:41 AM) (01/17/16 4:51 PM) MCV [80.0-94.0 fL] 87.5 fL 87.5 fL (01/18/16 4:41 AM) (01/17/16 4:51 PM) MCH [27.0-31.0 pg] 28.0 pg 28.0 pg (01/18/16 4:41 AM) (01/17/16 4:51 PM) MCHC [32.0-36.0 g/dL] 32.0 g/dL 32.0 g/dL (01/18/16 4:41 AM) (01/17/16 4:51 PM) RDW [11.5-14.5 %] 17.7 % 17.9 % *HI* *HI* (01/18/16 4:41 AM) (01/17/16 4:51 PM) Platelet [133-450 K/CMM] 159 K/CMM 175 K/CMM (01/18/16 4:41 AM) (01/17/16 4:51 PM) MPV [7.4-10.4 fL] 8.8 fL 8.3 fL (01/18/16 4:41 AM) (01/17/16 4:51 PM) Segs [45.0-75.0 %] 53.3 % 58.1 % (01/18/16 4:41 AM) (01/17/16 4:51 PM) Lymphocytes [20.0-40.0 %] 36.8 % 33.3 % (01/18/16 4:41 AM) (01/17/16 4:51 PM) Monocytes [2.0-12.0 %] 5.9 % 5.8 % (01/18/16 4:41 AM) (01/17/16 4:51 PM) Eosinophils [0.0-4.0 %] 3.7 % 2.5 % (01/18/16 4:41 AM) (01/17/16 4:51 PM) Basophils [0.0-1.0 %] 0.3 % 0.3 % (01/18/16 4:41 AM) (01/17/16 4:51 PM) Segs-Bands # [1.5-8.1 K/CMM] 2.8 K/CMM 3.2 K/CMM (01/18/16 4:41 AM) (01/17/16 4:51 PM) Lymphocytes # [1.0-5.5 K/CMM] 1.9 K/CMM 1.8 K/CMM (01/18/16 4:41 AM) (01/17/16 4:51 PM) Monocytes # [0.0-0.8 K/CMM] 0.3 K/CMM 0.3 K/CMM (01/18/16 4:41 AM) (01/17/16 4:51 PM) Eosinophils # [0.0-0.5 K/CMM] 0.2 K/CMM 0.1 K/CMM (01/18/16 4:41 AM) (01/17/16 4:51 PM) Basophils # [0.0-0.2 K/CMM] 0.0 K/CMM 0.0 K/CMM (01/18/16 4:41 AM) (01/17/16 4:51 PM) D-Dimer 1.22 ug/mL FEU *NA* (01/17/16 9:20 PM) PTT [22.9-35.8 seconds] 28.0 seconds (01/17/16 9:20 PM) Immunizations No data available for this section Procedures Procedure Date Related Diagnosis Body Site Fluoroscopic angiography of coronary artery and insertion of stent Fusion of lumbar spine IVC - Insertion of inferior vena caval filter Pacemaker care1 Percutaneous transluminal balloon angioplasty of aorta with stent placement for coarctation of aorta Procedure on back2 1inserted in Apr 23, [id number] "back surgery" Social History Social History Type Response Alcohol Current, Type Beer. Frequency: 3-5 times per week. Smoking Status Former smoker; Exposure to Tobacco Smoke None; Other Tobacco Frequency last smoked 40 years ago, pack per three days; Cigarette Smoking Last 365 Days No; Reg Smoking Cessation Counseling Yes Assessment and Plan No data available for this section
--- OUTSIDE RECORDS SUMMARY | 2019-01-23 10:01 | XMS REPORT | Summary of Care ---
:1935 Author Encounter [facility] Alyson(GHAZALA) [id number] Date(s): 07/06/14 - 07/06/14 [facility] [address] [place] [address]- Discharge Diagnosis: Hemoptysis Discharge Disposition: Home Physician Attending: Abdon Forbes MD Vital Signs Most recent to oldest 1 2 3 [Reference Range]: Height 193.04 cm (07/06/14 6:30 PM) Temperature Oral [96.4-99.1 98.3 DegF 98.1 DegF DegF] (07/06/14 10:20 PM) (07/06/14 6:30 PM) Blood Pressure [90-140/60-90 159/60 mmHg 160/54 mmHg 151/61 mmHg mmHg] *HI* *HI* *HI* (07/06/14 9:38 PM) (07/06/14 8:16 PM) (07/06/14 6:30 PM) Respiratory Rate [14-20 BRMIN] 16 BRMIN 18 BRMIN 20 BRMIN (07/06/14 10:20 PM) (07/06/14 9:38 PM) (07/06/14 8:16 PM) Peripheral Pulse Rate [60-100 61 bpm 59 bpm 57 bpm bpm] (07/06/14 10:20 PM) *LOW* *LOW* (07/06/14 9:38 PM) (07/06/14 8:16 PM) Weight 136.818 kg (07/06/14 6:30 PM) Body Mass Index 36.72 m2 (07/06/14 6:30 PM) Problem List Condition Effective Dates Status Health Status Informant AF - Atrial fibrillation(Confirmed) Active Asbestosis(Confirmed) Active Atrial fibrillation(Confirmed) Active Cardiac catheterization(Confirmed) 04/28/11 Active CHF - Congestive heart Active failure(Confirmed) CVA - Cerebrovascular Resolved accident(Confirmed) Diabetes mellitus(Confirmed)1, 2 Active Dizziness(Confirmed) Active DVT - Deep vein thrombosis of lower Active limb(Confirmed) Fusion(Confirmed) Active Gout(Confirmed) Active HTN - Hypertension(Confirmed) Active [place] (myocardial Active infarction)(Confirmed) Monoclonal gammopathy(Confirmed)3 Active Pain(Confirmed) Active Pneumonia(Confirmed) Resolved Sleep apnea(Confirmed) Active 1PATIENT STATES HE IS NOT A [id number] kaio1iot platelets Allergies, Adverse Reactions, Alerts Substance Reaction Severity Status Bactrim hives Severe Active NKFA Active Plavix Active sulfa drugs Active Medications Saline Flush 0.9% 10 mL, Route: IVP, Drug Form: INJ, Dosing Weight 136.818, kg, PRN, PRN Line Flush, Start date: 07/06/14 20:05:00, Duration: 30 day, Stop date: 08/05/14 21: 04:00 Notes: (Same as: BD Posiflush) Start Date: 07/06/14 Stop Date: 07/06/14 Status: Discontinued Results ELECTROLYTES Most recent to oldest [Reference Range]: 1 Sodium Lvl [135-145 mEq/L] 142 mEq/L (07/06/14 8:57 PM) Potassium Lvl [3.5-5.1 mEq/L] 4.1 mEq/L (07/06/14 8:57 PM) Chloride Lvl [95-109 mEq/L] 106 mEq/L (07/06/14 8:57 PM) CO2 [24-32 mEq/L] 30 mEq/L (07/06/14 8:57 PM) AGAP [10.0-20.0 mEq/L] 10.1 mEq/L (07/06/14 8:57 PM) CHEM PANEL Most recent to oldest [Reference Range]: 1 Creatinine Lvl [0.5-1.4 mg/dL] 2.1 mg/dL *HI* (07/06/14 8:57 PM) eGFR 34 mL/min/1.73m2 1 *NA* (07/06/14 8:57 PM) BUN [7-22 mg/dL] 44 mg/dL *HI* (07/06/14 8:57 PM) B/C Ratio [6-25] 21 (07/06/14 8:57 PM) Glucose Lvl [70-99 mg/dL] 124 mg/dL 2 *HI* (07/06/14 8:57 PM) Total Protein [6.4-8.4 g/dL] 8.0 g/dL (07/06/14 8:57 PM) Albumin Lvl [3.5-5.0 g/dL] 3.7 g/dL (07/06/14 8:57 PM) Globulin [2.0-4.0 g/dL] 4.3 g/dL *HI* (07/06/14 8:57 PM) A/G Ratio [0.7-1.6] 0.9 (07/06/14 8:57 PM) Calcium Lvl [8.5-10.5 mg/dL] 8.5 mg/dL (07/06/14 8:57 PM) ALT [0-65 unit/L] 18 unit/L (07/06/14 8:57 PM) AST [0-37 unit/L] 18 unit/L (07/06/14 8:57 PM) Alk Phos [39-136 unit/L] 77 unit/L (07/06/14 8:57 PM) Bili Total [0.2-1.3 mg/dL] 0.4 mg/dL (07/06/14 8:57 PM) 1Result Comment: The eGFR is calculated [...] eGFR should be multiplied by the estimated BMI.2Interpretive Data: Adult reference range values reflect the clinical guidelines of the [place] [employer].CARDIAC ENZYMES Most recent to oldest [Reference Range]: 1 Total CK [12-191 unit/L] 121 unit/L (07/06/14 8:57 PM) CK MB [0.5-3.6 ng/mL] 1.0 ng/mL (07/06/14 8:57 PM) CK MB Index [0.0-2.5] 0.8 (07/06/14 8:57 PM) Troponin-I [0.00-0.40 ng/mL] 0.28 ng/mL (07/06/14 8:57 PM) BNP [<=100 pg/mL] 185 pg/mL 3 *HI* (07/06/14 9:14 PM) 3Interpretive Data: Elevated results are in line with increasing severity of congestive heart failure. Minor elevations between 100 and 300 may be seen with Myocardial Ischemia, Sodium retaining drugs, and compensated/treated heart failure.HEMATOLOGY Most recent to oldest [Reference Range]: 1 WBC [3.7-10.4 K/CMM] 6.5 K/CMM (07/06/14 8:42 PM) RBC [4.70-6.10 M/CMM] 4.19 M/CMM *LOW* (07/06/14 8:42 PM) Hgb [14.0-18.0 g/dL] 12.0 g/dL *LOW* (07/06/14 8:42 PM) Hct [42.0-54.0 %] 33.7 % *LOW* (07/06/14 8:42 PM) MCV [80.0-94.0 fL] 80.3 fL (07/06/14 8:42 PM) MCH [27.0-31.0 pg] 28.7 pg (07/06/14 8:42 PM) MCHC [32.0-36.0 g/dL] 35.8 g/dL (07/06/14 8:42 PM) RDW [11.5-14.5 %] 18.6 % *HI* (07/06/14 8:42 PM) Platelet [133-450 K/CMM] 105 K/CMM *LOW* (07/06/14 8:42 PM) MPV [7.4-10.4 fL] 10.1 fL (07/06/14 8:42 PM) Segs [45.0-75.0 %] 68.3 % (07/06/14 8:42 PM) Lymphocytes [20.0-40.0 %] 22.4 % (07/06/14 8:42 PM) Monocytes [2.0-12.0 %] 6.4 % (07/06/14 8:42 PM) Eosinophils [0.0-4.0 %] 2.6 % (07/06/14 8:42 PM) Basophils [0.0-1.0 %] 0.3 % (07/06/14 8:42 PM) Segs-Bands # [1.5-8.1 K/CMM] 4.5 K/CMM (07/06/14 8:42 PM) Lymphocytes # [1.0-5.5 K/CMM] 1.5 K/CMM (07/06/14 8:42 PM) Monocytes # [0.0-0.8 K/CMM] 0.4 K/CMM (07/06/14 8:42 PM) Eosinophils # [0.0-0.5 K/CMM] 0.2 K/CMM (07/06/14 8:42 PM) Basophils # [0.0-0.2 K/CMM] 0.0 K/CMM (07/06/14 8:42 PM) PT [12.0-14.7 seconds] 13.3 seconds (07/06/14 9:14 PM) INR [0.85-1.17] 1.01 4 (07/06/14 9:14 PM) PTT [22.9-35.8 seconds] 27.2 seconds 5 (07/06/14 9:14 PM) 4Interpretive Data: RECOMMENDED RANGES FOR PROTIME INR: 2.0-3.0 for most medical and surgical thromboembolic states. 2.5-3.5 for artificial heart valves and recurrent embolism. INR SHOULD BE USED ONLY FOR PATIENTS ON STABLE ANTICOAGULANT THERAPY.5Interpretive Data: Heparin Therapeutic Range: 57 - 92 Seconds Immunizations No data available for this section Procedures No data available for this section Social History Social History Type Response Alcohol Current, Type Beer. Frequency: 3-5 times per week. Smoking Status Former smoker; Exposure to Tobacco Smoke None; Cigarette Smoking Last 365 Days No; Reg Smoking Cessation Counseling Yes Assessment and Plan No data available for this section
--- OUTSIDE RECORDS SUMMARY | 2019-01-23 10:02 | XMS REPORT | Summary of Care ---
:[address] [facility] [place], [place] Address [address], [place] [address]- Encounter HQ Alyson(GHAZALA) [id number] Date(s): 03/16/17 - 03/23/17 [id number] [place] [address]- Discharge Disposition: Home or Self Care Attending Physician: Kavita Morrison MD Admitting Physician: Kavita Morrison MD Vital Signs Most recent to oldest 1 2 3 [Reference Range]: Height 193.04 cm 193.04 cm (03/16/17 4:19 PM) (03/16/17 12:16 PM) Current Weight 140.909 kg (03/17/17 4:18 AM) Temperature Oral [96.4-99.1 98.4 DegF 98.2 DegF 98.4 DegF DegF] (03/23/17 4:16 PM) (03/23/17 11:38 AM) (03/23/17 7:43 AM) Blood Pressure 120/72 mmHg 115/69 mmHg 103/57 mmHg [90-140/60-90 mmHg] (03/23/17 4:16 PM) (03/23/17 11:38 AM) (03/23/17 7:43 AM ) Respiratory Rate [14-20 20 BRMIN 18 BRMIN 18 BRMIN BRMIN] (03/23/17 4:16 PM) (03/23/17 11:38 AM) (03/23/17 7:43 AM) Peripheral Pulse Rate 69 bpm 82 bpm 80 bpm [60-100 bpm] (03/23/17 4:16 PM) (03/23/17 11:38 AM) (03/23/17 7:43 AM) Weight 147.909 kg 129.545 kg (03/16/17 4:19 PM) (03/16/17 12:16 PM) Body Mass Index 39.69 m2 34.76 m2 (03/16/17 4:19 PM) (03/16/17 12:16 PM) Problem List Condition Effective Dates Status Health Status Informant AF - Atrial fibrillation(Confirmed) Active Asbestosis(Confirmed) Active Atrial fibrillation(Confirmed) Active Cardiac catheterization(Confirmed) 04/28/11 Active CHF - Congestive heart Active failure(Confirmed) CVA - Cerebrovascular Resolved accident(Confirmed) Diabetes mellitus(Confirmed)1, 2, 3 Resolved Dizziness(Confirmed) Active DVT - Deep vein thrombosis of lower Active limb(Confirmed) Gout(Confirmed) Active HTN - Hypertension(Confirmed) Active [place] (myocardial Active infarction)(Confirmed) Monoclonal gammopathy(Confirmed)4 Active Pain(Confirmed) Active Pneumonia(Confirmed) Resolved Sleep apnea(Confirmed) Active 1pt states he is not a [id number] STATES HE IS NOT A [id number] platelets Allergies, Adverse Reactions, Alerts Substance Reaction Severity Status sulfa drugs Active Plavix Active Bactrim hives Severe Active NKFA Active Medications allopurinol 100 mg, 1 tab, Route: PO, Drug form: TAB, Daily, Dosing Weight 147.909, kg, Start date: 03/17/17 9:00:00 ORAL THERAPIST, Duration: 30 day, Stop date: 04/15/17 9:00:00 ORAL THERAPIST Notes: (Same as: Zyloprim) Start Date: 03/17/17 Stop Date: 03/23/17 Status: DiscontinuedamLODIPine 5 mg, 1 tab, Route: PO, Drug form: TAB, BID, Dosing Weight 147.909, kg, Start date: 03/20/17 17:00:00 ORAL THERAPIST, Stop date: 04/19/17 16:59:00 ORAL THERAPIST Notes: (Same as: Norvasc) Start Date: 03/20/17 Stop Date: 03/23/17 Status: Discontinuedargatroban 50 mg/ 50 ml INJ (PF) NON-ESRD 50 mg 50 mg, 50 mL, Rate: Start at 0.5 micrograms/kg/min, Dosing Weight 147.909, kg, Route: IV, Total Volume: 50, Start Date: 03/17/17 21:00:00 ORAL THERAPIST, Duration: 30 day , Stop date: 04/16/17 20:59:00 ORAL THERAPIST, Replace Every: 24 hr Notes: Argatroban 50 mg/ 50 ml inj (1mg/1ml)WASTE: F/P - Black; E - Municipal Trash Bin MEDICATION WASTE Product Size: 50 mgProduct Wasted: ___ mg Start Date: 03/17/17 Stop Date: 03/18/17 Status: Discontinuedatorvastatin 40 mg, 1 tab, Route: PO, Drug form: TAB, Bedtime, Dosing Weight 147.909, kg, Start date: 03/16/17 21:00:00 ORAL THERAPIST, Duration: 30 day, Stop date: 04/14/17 21:00: 00 ORAL THERAPIST Notes: (Same as: Lipitor) Start Date: 03/16/17 Stop Date: 03/23/17 Status: Discontinuedbivalirudin 250 mg 250 mg, 250 mL, Rate: Start at 0.05 mg/kg/hr, Dosing Weight 147.909, kg, Route: IV, Total Volume: 250, Start Date: 03/17/17 11:35:00 ORAL THERAPIST, Duration: 30 day, Stop date: 04/16/17 11:34:00 ORAL THERAPIST, Replace Every: 24 hr Start Date: 03/17/17 Stop Date: 03/17/17 Status: Discontinuedbivalirudin 250 mg 250 mg, 250 mL, Rate: Start at 0.05 mg/kg/hr, Dosing Weight 147.909, kg, Route: IV, Total Volume: 250, Start Date: 03/17/17 11:37:00 ORAL THERAPIST, Duration: 30 day, Stop date: 04/16/17 11:36:00 ORAL THERAPIST, Replace Every: 24 hr Start Date: 03/17/17 Stop Date: 03/17/17 Status: Discontinuedcarvedilol 25 mg, 1 tab, Route: PO, Drug form: TAB, BID, Dosing Weight 147.909, kg, Start date: 03/17/17 9:00:00 ORAL THERAPIST, Duration: 30 day, Stop date: 04/15/17 17:00:00 ORAL THERAPIST Notes: Give with food. (Same As: Coreg) Start Date: 03/17/17 Stop Date: 03/23/17 Status: Discontinuedcarvedilol 25 mg oral tablet 25 mg=1 tab, PO, BID, 0 Refill(s) Start Date: 03/16/17 Stop Date: 03/23/17 Status: DiscontinuedCombivent inhalation aerosol with adapter 2 puff, Route: INHALER, Drug Form: AERO, Dosing Weight 147.909, kg, BID, PRN Shortness of breath, Start date: 03/16/17 18:45:00 ORAL THERAPIST, Duration: 30 day, Stop date: 04/15/17 18:44:00 ORAL THERAPIST, shortness of breathing Notes: Same as: Combivent RespimatWASTE: Aerosol - Return to Pharmacy Start Date: 03/16/17 Stop Date: 03/23/17 Status: DiscontinuedCoumadin 4 mg, 2 tab, Route: PO, Drug form: TAB, ONCE, Dosing Weight 147.909, kg, Start date: 03/18/17 13:05:00 ORAL THERAPIST, Stop date: 03/18/17 13:05:00 ORAL THERAPIST Notes: Nurse to ensure documentation of patient education per anticoagulation policy.Avoid large intake of vitamin-K containing foods diet.(Same As: Coumadin) WASTE: F/P - P Waste Black; E - P Waste Black Start Date: 03/18/17 Stop Date: 03/18/17 Status: Completedenoxaparin 140 mg, 0.93 mL, Route: SUB-Q, Drug form: INJ, [id number], Dosing Weight 147.909, kg, Start date: 03/18/17 13:30:00 ORAL THERAPIST, Duration: 30 day, Stop date: 04/17/17 1: 30:00 ORAL THERAPIST Notes: Nurse to ensure documentation of patient education per anticoagulation policy. (Same as: Lovenox) Start Date: 03/18/17 Stop Date: 03/23/17 Status: Discontinuedfurosemide 40 mg, PO, BID, 0 Refill(s) Start Date: 03/16/17 Status: Orderedfurosemide 40 mg, 1 tab, Route: PO, Drug form: TAB, BID, Dosing Weight 147.909, kg, Start date: 03/17/17 9:00:00 ORAL THERAPIST, Duration: 30 day, Stop date: 04/15/17 17:00:00 ORAL THERAPIST Notes: (Same as: Lasix) May cause GI upset. Give with food or milk. Start Date: 03/17/17 Stop Date: 03/23/17 Status: DiscontinuedGoLYTELY 4,000 ml, Route: PO, Drug Form: PDR/REC, Dosing Weight 147.909, kg, ONCE, Start date: 03/22/17 13:56:00 ORAL THERAPIST, Stop date: 03/22/17 13:56:00 ORAL THERAPIST Notes: (polyethylene glycol electrolyte solution 4 Liter bottle) (Same as: Moni Colyte) Start Date: 03/22/17 Stop Date: 03/22/17 Status: Completedlosartan 100 mg, 2 tab, Route: PO, Drug form: TAB, Daily, Dosing Weight 147.909, kg, Start date: 03/17/17 9:00:00 ORAL THERAPIST, Duration: 30 day, Stop date: 04/15/17 9:00:00 ORAL THERAPIST Notes: (Same as: Neto) Start Date: 03/17/17 Stop Date: 03/23/17 Status: Discontinuedlosartan 100 mg, PO, Daily, 0 Refill(s) Start Date: 03/16/17 Status: OrderedLovenox 130 mg, 0.87 mL, Route: SUB-Q, Drug form: INJ, ONCE, Dosing Weight 129.545, kg, Priority: STAT, Start date: 03/16/17 15:10:00 ORAL THERAPIST, Stop date: 03/16/17 15:10:00 ORAL THERAPIST Notes: Nurse to ensure documentation of patient education per anticoagulation policy. (Same as: Lovenox) Start Date: 03/16/17 Stop Date: 03/16/17 Status: CompletedLovenox 150 mg, 1 mL, Route: SUB-Q, Drug form: INJ, Q24H, Dosing Weight 147.909, kg, Start date: 03/17/17 6:00:00 ORAL THERAPIST, Duration: 30 day, Stop date: 04/15/17 6:00:00 ORAL THERAPIST Notes: Nurse to ensure documentation of patient education per anticoagulation policy. (Same as: Lovenox) Start Date: 03/17/17 Stop Date: 03/17/17 Status: Discontinuedpneumococcal 13-valent vaccine 0.5 mL, Route: IM, Drug Form: INJ, ONCALL, Start date: 03/16/17 18:35:45 ORAL THERAPIST, Stop date: 04/15/17 18:30:45 ORAL THERAPIST Notes: Shake well prior to use (Same as: Prevnar 13) Start Date: 03/16/17 Stop Date: 03/16/17 Status: Canceledpotassium chloride 40 mEq, 2 tab, Route: PO, Drug form: ERTAB, ONCE, Dosing Weight 147.909, kg, Start date: 03/18/17 10:51:00 ORAL THERAPIST, Stop date: 03/18/17 10:51:00 ORAL THERAPIST Notes: (Same as: K-Dur 20)"Do Not Crush" With food and full glass of water Start Date: 03/18/17 Stop Date: 03/18/17 Status: Completedpotassium chloride 40 mEq, 2 tab, Route: PO, Drug form: ERTAB, ONCE, Dosing Weight 147.909, kg, Start date: 03/20/17 12:04:00 ORAL THERAPIST, Stop date: 03/20/17 12:04:00 ORAL THERAPIST Notes: (Same as: K-Dur 20)"Do Not Crush" With food and full glass of water Start Date: 03/20/17 Stop Date: 03/20/17 Status: Completedpotassium chloride 60 mEq, 3 tab, Route: PO, Drug form: ERTAB, ONCE, Dosing Weight 147.909, kg, Start date: 03/17/17 8:17:00 ORAL THERAPIST, Stop date: 03/17/17 8:17:00 ORAL THERAPIST Notes: (Same as: K-Dur 20)"Do Not Crush" With food and full glass of water Start Date: 03/17/17 Stop Date: 03/17/17 Status: CompletedProtonix 40 mg, 1 tab, Route: PO, Drug form: ECTAB, Daily, Dosing Weight 147.909, kg, Priority: STAT, Start date: 03/19/17 11:44:00 ORAL THERAPIST, Duration: 30 day, Stop date: 04/18/17 9:00:00 ORAL THERAPIST Notes: Tablet should not be chewed or crushed.(Same as: Protonix) Start Date: 03/19/17 Stop Date: 03/23/17 Status: DiscontinuedSenokot 17.2 mg, 2 tab, Route: PO, Drug form: TAB, Bedtime, Start date: 03/16/17 21:00: 00 ORAL THERAPIST, Duration: 30 day, Stop date: 04/14/17 21:00:00 ORAL THERAPIST Notes: (Same as: Senokot) Start Date: 03/16/17 Stop Date: 03/23/17 Status: DiscontinuedSenokot S 2 tab, Route: PO, Dosing Weight 147.909, kg, Bedtime, Start date: 03/16/17 21:00 :00 ORAL THERAPIST, Duration: 30 day, Stop date: 04/14/17 21:00:00 ORAL THERAPIST Start Date: 03/16/17 Stop Date: 03/16/17 Status: Deletedsodium chloride 0.9% 1000 ml INJ 1,000 mL 1,000 mL, Rate: 75 ml/hr, Infuse over: 13.3 hr, Route: IV, Dosing Weight 147.909 kg, Total Volume: 1,000, Start date: 03/16/17 17:43:00 ORAL THERAPIST, Duration: 30 day, Stop date: 04/15/17 17:42:00 ORAL THERAPIST Start Date: 03/16/17 Stop Date: 03/20/17 Status: Discontinuedtamsulosin 0.4 mg, 1 cap, Route: PO, Drug form: CAP, Bedtime, Dosing Weight 147.909, kg, Start date: 03/16/17 21:00:00 ORAL THERAPIST, Duration: 30 day, Stop date: 04/14/17 21:00: 00 ORAL THERAPIST Notes: (Same As: Flomax) "Do Not Crush" Start Date: 03/16/17 Stop Date: 03/23/17 Status: Discontinuedtamsulosin 0.4 mg, PO, Bedtime, 0 Refill(s) Start Date: 03/16/17 Status: Orderedtramadol 50 mg oral tablet 50 mg, 1 tab, Route: PO, Drug form: TAB, Q6H, Dosing Weight 147.909, kg, PRN Pain Score 1-3, Start date: 03/20/17 10:41:00 ORAL THERAPIST, Duration: 30 day, Stop date: 04/19/17 10:40:00 ORAL THERAPIST Notes: Not to exceed 400mg/day. (Same As: Ultram) Start Date: 03/20/17 Stop Date: 03/20/17 Status: DiscontinuedTylenol 650 mg, 2 tab, Route: PO, Drug form: TAB, Q6H, Dosing Weight 147.909, kg, PRN Pain Score 1-3, Start date: 03/19/17 18:51:00 ORAL THERAPIST, Duration: 30 day, Stop date: 04/18/17 18:50:00 ORAL THERAPIST Notes: Do not exceed 4 gm/day. (Same as: Tylenol) Start Date: 03/19/17 Stop Date: 03/23/17 Status: DiscontinuedTylenol with Codeine #3 oral tablet 1 tab, Route: PO, Drug Form: TAB, Dosing Weight 147.909, kg, Q4H, PRN Pain Score 1-3, Start date: 03/20/17 18:17:00 ORAL THERAPIST, Duration: 30 day, Stop date: 04/19 18:16:00 ORAL THERAPIST Notes: Do not exceed 4gm/day of acetaminophen. (Same as: Tylenol with Codeine # 3) Start Date: 03/20/17 Stop Date: 03/20/17 Status: DiscontinuedTylenol with Codeine #3 oral tablet 1 tab, Route: PO, Drug Form: TAB, Dosing Weight 147.909, kg, Q6H, PRN Pain Score 4-6, Start date: 03/20/17 18:58:00 ORAL THERAPIST, Duration: 30 day, Stop date: 04/19 18:57:00 ORAL THERAPIST Notes: Do not exceed 4gm/day of acetaminophen. (Same as: Tylenol with Codeine # 3) Start Date: 03/20/17 Stop Date: 03/23/17 Status: Discontinued Results ELECTROLYTES Most recent to oldest 1 2 3 [Reference Range]: Sodium Lvl [135-145 mEq/L] 133 mEq/L 135 mEq/L 135 mEq/L *LOW* (03/21/17 3:55 AM) (03/20/17 5:35 AM) (03/22/17 4:26 AM) Potassium Lvl [3.5-5.1 3.8 mEq/L 3.5 mEq/L 3.2 mEq/L mEq/L] (03/22/17 4:26 AM) (03/21/17 3:55 AM) *LOW* (03/20/17 5:35 AM) Chloride Lvl [95-109 mEq/L] 96 mEq/L 97 mEq/L 98 mEq/L (03/22/17 4:26 AM) (03/21/17 3:55 AM) (03/20/17 5:35 AM) CO2 [24-32 mEq/L] 25 mEq/L 27 mEq/L 24 mEq/L (03/22/17 4:26 AM) (03/21/17 3:55 AM) (03/20/17 5:35 AM) AGAP [10.0-20.0 mEq/L] 15.8 mEq/L 14.5 mEq/L 16.2 mEq/L (03/22/17 4:26 AM) (03/21/17 3:55 AM) (03/20/17 5:35 AM) CHEM PANEL Most recent to oldest 1 2 3 [Reference Range]: Creatinine Lvl [0.50-1.40 2.60 mg/dL 2.90 mg/dL 2.70 mg/dL mg/dL] *HI* *HI* *HI* (03/22/17 4:26 AM) (03/21/17 3:55 AM) (03/20/17 5:35 AM) eGFR 26 mL/min/1.73m2 1 22 mL/min/1.73m2 2 24 mL/min/1.73m2 3 *NA* *NA* *NA* (03/22/17 4:26 AM) (03/21/17 3:55 AM) (03/20/17 5:35 AM) BUN [7-22 mg/dL] 40 mg/dL 44 mg/dL 43 mg/dL *HI* *HI* *HI* (03/22/17 4:26 AM) (03/21/17 3:55 AM) (03/20/17 5:35 AM) Glucose Lvl [70-99 mg/dL] 102 mg/dL 101 mg/dL 95 mg/dL *HI* *HI* (03/20/17 5:35 AM) (03/22/17 4:26 AM) (03/21/17 3:55 AM) Albumin Lvl [3.5-5.0 g/dL] 2.9 g/dL 3.0 g/dL *LOW* *LOW* (03/18/17 8:57 AM) (03/17/17 4:09 AM) Calcium Lvl [8.5-10.5 mg/dL] 8.8 mg/dL 9.0 mg/dL 9.1 mg/dL (03/22/17 4:26 AM) (03/21/17 3:55 AM) (03/20/17 5:35 AM) Phosphorus [2.5-4.5 mg/dL] 2.3 mg/dL 2.4 mg/dL *LOW* *LOW* (03/18/17 8:57 AM) (03/17/17 4:09 AM) Magnesium Lvl [1.8-2.4 mg/dL] 2.0 mg/dL 2.3 mg/dL (03/18/17 8:57 AM) (03/17/17 4:09 AM) Procalcitonin Lvl [0.00-0.10 0.07 ng/mL ng/mL] (03/16/17 1:09 PM) 1Result Comment: The eGFR is calculated using the CKD-EPI formula. In most young , healthy individualsthe eGFR will be >90 mL/min/1.73m2. The eGFR declines with age. An eGFR of 60-89 may be normal insome populations, particularly the elderly, for whom the [...] An eGFR of 60-89 may be normal insome populations, particularly the elderly, for whom the [...] An eGFR of 60-89 may be normal insome populations, particularly the elderly, for whom the [...] 1 2 3 Total CK [12-191 unit/L] 115 unit/L (03/16/17 1:09 PM) CK MB [0.5-3.6 ng/mL] 2.1 ng/mL (03/16/17 1:09 PM) CK MB Index [0.0-2.5] 1.8 (03/16/17 1:09 PM) Troponin-I [0.00-0.40 ng/mL] 0.15 ng/mL (03/16/17 1:09 PM) BNP [<=100 pg/mL] 255 pg/mL *HI* (03/16/17 1:09 PM) URINE CHEM Most recent to oldest [Reference Range]: 1 2 3 U Creatinine 137.00 mg/dL *NA* (03/16/17 8:57 PM) U Protein 14.8 mg/dL *NA* (03/16/17 8:57 PM) U Prot/Creat 0.1 *NA* (03/16/17 8:57 PM) U Sodium 33 mEq/L *NA* (03/16/17 8:57 PM) U Eos [None Seen] None Seen (03/16/17 8:57 PM) URINE AND STOOL Most recent to oldest [Reference Range]: 1 2 3 UA Turbidity [Clear] Clear (03/16/17 8:57 PM) UA Color Yellow *NA* (03/16/17 8:57 PM) UA pH [5.0-8.0] 6.0 (03/16/17 8:57 PM) UA Spec Grav [<=1.030] 1.012 (03/16/17 8:57 PM) UA Glucose [Negative mg/dL] Negative mg/dL *NA* (03/16/17 8:57 PM) UA Blood [Negative] Negative (03/16/17 8:57 PM) UA Ketones [Negative mg/dL] Trace mg/dL *ABN* (03/16/17 8:57 PM) UA Protein [Negative mg/dL] Negative mg/dL (03/16/17 8:57 PM) UA Urobilinogen [0.1-1.0 mg/dL] <=1.0 mg/dL *NA* (03/16/17 8:57 PM) UA Bili [Negative] Negative *NA* (03/16/17 8:57 PM) UA Leuk Est [Negative] Negative (03/16/17 8:57 PM) UA Nitrite [Negative] Negative (03/16/17 8:57 PM) UA WBC [0-5 /HPF] 1 /HPF (03/16/17 8:57 PM) UA Sq Epi [Few /LPF] Occasional /LPF *NA* (03/16/17 8:57 PM) UA Mucus [None Seen /LPF] Few /LPF *NA* (03/16/17 8:57 PM) IMMUNOLOGY Most recent to oldest [Reference Range]: 1 2 3 PAO [Negative] Negative (03/21/17 3:55 AM) RF Qnt [0-20 IU/mL] <10 IU/mL (03/18/17 8:57 AM) HEMATOLOGY Most recent to oldest 1 2 3 [Reference Range]: WBC [3.7-10.4 K/CMM] 6.8 K/CMM 5.3 K/CMM 5.0 K/CMM (03/23/17 4:18 AM) (03/22/17 4:26 AM) (03/21/17 3:55 AM) RBC [4.70-6.10 M/CMM] 4.04 M/CMM 3.88 M/CMM 3.88 M/CMM *LOW* *LOW* *LOW* (03/23/17 4:18 AM) (03/22/17 4:26 AM) (03/21/17 3:55 AM) Hgb [14.0-18.0 g/dL] 12.3 g/dL 11.9 g/dL 12.0 g/dL *LOW* *LOW* *LOW* (03/23/17 4:18 AM) (03/22/17 4:26 AM) (03/21/17 3:55 AM) Hct [42.0-54.0 %] 37.5 % 35.7 % 35.4 % *LOW* *LOW* *LOW* (03/23/17 4:18 AM) (03/22/17 4:26 AM) (03/21/17 3:55 AM) MCV [80.0-94.0 fL] 92.8 fL 92.0 fL 91.2 fL (03/23/17 4:18 AM) (03/22/17 4:26 AM) (03/21/17 3:55 AM) MCH [27.0-31.0 pg] 30.5 pg 30.5 pg 30.8 pg (03/23/17 4:18 AM) (03/22/17 4:26 AM) (03/21/17 3:55 AM) MCHC [32.0-36.0 g/dL] 32.9 g/dL 33.2 g/dL 33.8 g/dL (03/23/17 4:18 AM) (03/22/17 4:26 AM) (03/21/17 3:55 AM) RDW [11.5-14.5 %] 16.7 % 16.4 % 16.3 % *HI* *HI* *HI* (03/23/17 4:18 AM) (03/22/17 4:26 AM) (03/21/17 3:55 AM) Platelet [133-450 41 K/CMM 58 K/CMM 65 K/CMM K/CMM] *LOW* *LOW* *LOW* (03/23/17 4:18 AM) (03/22/17 4:26 AM) (03/21/17 3:55 AM) MPV [7.4-10.4 fL] 10.7 fL 8.9 fL 8.8 fL *HI* (03/22/17 4:26 AM) (03/21/17 3:55 AM) (03/23/17 4:18 AM) Segs [45.0-75.0 %] 73.3 % 69.6 % 65.6 % (03/23/17 4:18 AM) (03/22/17 4:26 AM) (03/21/17 3:55 AM) Lymphocytes [20.0-40.0 22.1 % 23.0 % 27.5 % %] (03/23/17 4:18 AM) (03/22/17 4:26 AM) (03/21/17 3:55 AM) Monocytes [2.0-12.0 %] 3.2 % 4.9 % 4.9 % (03/23/17 4:18 AM) (03/22/17 4:26 AM) (03/21/17 3:55 AM) Eosinophils [0.0-4.0 1.3 % 1.9 % 1.4 % %] (03/23/17 4:18 AM) (03/22/17 4:26 AM) (03/21/17 3:55 AM) Basophils [0.0-1.0 %] 0.1 % 0.6 % 0.6 % (03/23/17 4:18 AM) (03/22/17 4:26 AM) (03/21/17 3:55 AM) Segs-Bands # [1.5-8.1 5.0 K/CMM 3.7 K/CMM 3.3 K/CMM K/CMM] (03/23/17 4:18 AM) (03/22/17 4:26 AM) (03/21/17 3:55 AM) Lymphocytes # [1.0-5.5 1.5 K/CMM 1.2 K/CMM 1.4 K/CMM K/CMM] (03/23/17 4:18 AM) (03/22/17 4:26 AM) (03/21/17 3:55 AM) Monocytes # [0.0-0.8 0.2 K/CMM 0.3 K/CMM 0.2 K/CMM K/CMM] (03/23/17 4:18 AM) (03/22/17 4:26 AM) (03/21/17 3:55 AM) Eosinophils # [0.0-0.5 0.1 K/CMM 0.1 K/CMM 0.1 K/CMM K/CMM] (03/23/17 4:18 AM) (03/22/17 4:26 AM) (03/21/17 3:55 AM) Basophils # [0.0-0.2 0.0 K/CMM 0.0 K/CMM 0.0 K/CMM K/CMM] (03/23/17 4:18 AM) (03/21/17 3:55 AM) (03/18/17 8:57 AM) Anisocyte [None Seen] 1+ *ABN* (03/21/17 3:55 AM) PB Smear Path Mild anemia with normochromic, normocytic indices. Moderate thrombocytopenia. No significant microangiopathic changes seen. Clinical and laboratory correlation required. *NA* (03/17/17 12:58 PM) Sed Rate [0-15 mm/hr] 54 mm/hr *HI* (03/16/17 1:09 PM) PT [12.0-14.7 seconds] 14.3 seconds 14.4 seconds 15.3 seconds (03/21/17 3:55 AM) (03/20/17 5:35 AM) *HI* (03/19/17 5:42 AM) INR [0.85-1.17] 1.11 1.12 1.20 (03/21/17 3:55 AM) (03/20/17 5:35 AM) *HI* (03/19/17 5:42 AM) Fibrinogen Lvl 447 mg/dL [230-510 mg/dL] (03/17/17 12:58 PM) D-Dimer 3.61 ug/mL FEU *NA* (03/17/17 12:58 PM) PTT [22.9-35.8 38.2 seconds 49.8 seconds 33.2 seconds seconds] *HI* *HI* (03/17/17 8:24 PM) (03/18/17 8:57 AM) (03/18/17 1:48 AM) Heparin Ab(HASEEB) Negative 1 [Negative] (03/17/17 12:58 PM) Pat Od Value .069 *NA* (03/17/17 12:58 PM) Pos CO Value .400 *NA* (03/17/17 12:58 PM) 1Result Comment: This assay detects heparin antibodies of IgG isotype. Antibodies of other isotypes have been reported to cause heparin-induced thrombocytopenia. Therefore, if there is a strong clinicalsuspicion of HIT, additional study with a serotonin release assay is recommented. Immunizations No data available for this section [...] Social History Social History Type Response Alcohol Past, Type Beer. Frequency: 3-5 times per week. Last use: 2 years ago. Stopped age 79 Years. Smoking Status Former smoker; Exposure to Tobacco Smoke None; Cigarette Smoking Last 365 Days No; Reg Smoking Cessation Counseling Yes; Other Tobacco Frequency last smoked 40 years ago, pack per three days; Assessment and Plan No data available for this section
--- OUTSIDE RECORDS SUMMARY | 2019-01-23 10:02 | XMS REPORT | Summary of Care ---
:1935 Author Organization [facility] Address [address], [place] [address]- Encounter HQ Alyson(GHAZALA) [id number] Date(s): 03/09/16 - 03/11/16 [facility] [address] [place] [address]- Discharge Disposition: Home or Self Care Attending Physician: Kavita Morrison MD Admitting Physician: Kavita Morrison MD Vital Signs Most recent to oldest 1 2 3 [Reference Range]: Height 193.04 cm (03/09/16 2:03 PM) Current Weight 135.6 kg (03/11/16 5:00 AM) Temperature Oral [96.4-99.1 97.9 DegF 98.1 DegF 97.8 DegF DegF] (03/11/16 1:06 PM) (03/11/16 7:58 AM) (03/11/16 4:18 AM) Blood Pressure [90-140/60-90 106/68 mmHg 97/64 mmHg 100/65 mmHg mmHg] (03/11/16 1:06 PM) (03/11/16 7:58 AM) (03/11/16 4:18 AM) Respiratory Rate [14-20 BRMIN] 18 BRMIN 18 BRMIN 18 BRMIN (03/11/16 1:06 PM) (03/11/16 7:58 AM) (03/11/16 4:18 AM) Peripheral Pulse Rate [60-100 109 bpm 108 bpm 107 bpm bpm] *HI* *HI* *HI* (03/11/16 1:06 PM) (03/11/16 7:58 AM) (03/11/16 4:18 AM) Weight 132.727 kg (03/09/16 2:03 PM) Body Mass Index 35.62 m2 (03/09/16 2:03 PM) Problem List Condition Effective Dates Status Health Status Informant AF - Atrial fibrillation(Confirmed) Active Asbestosis(Confirmed) Active Atrial fibrillation(Confirmed) Active Cardiac catheterization(Confirmed) 04/28/11 Active CHF - Congestive heart Active failure(Confirmed) CVA - Cerebrovascular Resolved accident(Confirmed) Diabetes mellitus(Confirmed)1, 2, 3 Resolved Dizziness(Confirmed) Active DVT - Deep vein thrombosis of lower Active limb(Confirmed) Fusion(Confirmed) Active Gout(Confirmed) Active HTN - Hypertension(Confirmed) Active [place] (myocardial Active infarction)(Confirmed) Monoclonal gammopathy(Confirmed)4 Active Pain(Confirmed) Active Pneumonia(Confirmed) Resolved Sleep apnea(Confirmed) Active 1pt states he is not a [id number] STATES HE IS NOT A [id number] [id number] platelets Allergies, Adverse Reactions, Alerts Substance Reaction Severity Status Bactrim hives Severe Active NKFA Active Plavix Active sulfa drugs Active Medications acetaminophen-hydrocodone 325 mg-5 mg oral tablet 1 tab, Route: PO, Drug Form: TAB, Q4H, PRN Pain Score 4-6, Start date: 03/09/16 19:08:00 CDT, Duration: 30 day, Stop date: 04/08/16 19:07:00 FIXING MACHINE OPERATOR Notes: (Same as: [place] 325/5) Do not exceed 4gm/day of acetaminophen. Start Date: 03/09/16 Stop Date: 03/11/16 Status: Discontinuedallopurinol 100 mg, 1 tab, Route: PO, Drug form: TAB, Daily, Dosing Weight 132.727, kg, Start date: 03/10/16 9:00:00 CDT, Duration: 30 day, Stop date: 04/08/16 9:00:00 FIXING MACHINE OPERATOR Notes: (Same as: Zyloprim) Start Date: 03/10/16 Stop Date: 03/11/16 Status: DiscontinuedALPRAZOLam 0.5 mg oral tablet 0.5 mg, 0.5 tab, Route: PO, Drug form: TAB, Bedtime, Dosing Weight 132.727, kg, Start date: 03/09/1621:00:00 CDT, Duration: 30 day, Stop date: 04/07/16 21:00: 00 FIXING MACHINE OPERATOR Notes: With food or milk(Same as: Xanax) Start Date: 03/09/16 Stop Date: 03/11/16 Status: DiscontinuedAMIODarone 200 mg, 1 tab, Route: PO, Drug form: TAB, BID-Meals, Dosing Weight 132.727, kg, Start date: 03/10/1617:00:00 CDT, Duration: 30 day, Stop date: 04/09/16 8:00:00 FIXING MACHINE OPERATOR Notes: (Same as: Cordarone) Start Date: 03/10/16 Stop Date: 03/11/16 Status: DiscontinuedAMIODarone 200 mg oral tablet 200 mg=1 tab, PO, BID-Meals, # 90 tab, 0 Refill(s) Start Date: 03/11/16 Status: OrderedamLODIPine 10 mg, 1 tab, Route: PO, Drug form: TAB, Daily, Dosing Weight 132.727, kg, Start date: 03/10/16 9:00:00 CDT, Duration: 30 day, Stop date: 04/08/16 9:00:00 FIXING MACHINE OPERATOR Notes: (Same as: Norvasc) Start Date: 03/10/16 Stop Date: 03/10/16 Status: DiscontinuedamLODIPine 5 mg, 1 tab, Route: PO, Drug form: TAB, Daily, Dosing Weight 132.727, kg, Start date: 03/11/16 9:00:00 CDT, Duration: 30 day, Stop date: 04/09/16 9:00:00 FIXING MACHINE OPERATOR Notes: (Same as: Norvasc) Start Date: 03/11/16 Stop Date: 03/11/16 Status: Discontinuedamoxicillin-clavulanate 875 mg-125 mg oral tablet 1 tab, Route: PO, Drug Form: TAB, Dosing Weight 132.727, kg, BID, Start date: 9:00:00 CDT, Duration: 30 day, Stop date: 04/08/16 17:00:00 FIXING MACHINE OPERATOR Notes: With food.(Same as: Augmentin 875) Start Date: 03/10/16 Stop Date: 03/11/16 Status: Discontinuedamoxicillin-clavulanate 875 mg-125 mg oral tablet 1 tab, PO, BID, # 20 tab, 0 Refill(s) Start Date: 03/09/16 Stop Date: 03/11/16 Status: Discontinuedatorvastatin 40 mg, 1 tab, Route: PO, Drug form: TAB, Bedtime, Dosing Weight 132.727, kg, Start date: 03/09/16 21:00:00 CDT, Duration: 30 day, Stop date: 04/07/16 21:00: 00 FIXING MACHINE OPERATOR Notes: (Same as: Lipitor) Start Date: 03/09/16 Stop Date: 03/11/16 Status: DiscontinuedBD Normal Saline Flush 10 mL, Route: IVP, Drug Form: INJ, PRN, PRN Line Flush, Start date: 03/10/16 15: 01:00 CDT, Duration:30 day, Stop date: 04/09/16 14:00:00 FIXING MACHINE OPERATOR Notes: (Same as: BD Posiflush) Start Date: 03/10/16 Stop Date: 03/11/16 Status: Discontinuedcarvedilol 25 mg, 1 tab, Route: PO, Drug form: TAB, Q12H, Dosing Weight 132.727, kg, Start date: 03/10/16 21:00:00 CDT, Duration: 30 day, Stop date: 04/09/16 9:00:00 FIXING MACHINE OPERATOR Notes: Give with food. (Same As: Coreg) Start Date: 03/10/16 Stop Date: 03/11/16 Status: Discontinuedcarvedilol 25 mg oral tablet 25 mg=1 tab, PO, Q12H, # 180 tab, 0 Refill(s) Start Date: 03/11/16 Status: Orderedcolchicine 0.6 mg oral tablet 0.6 mg, 1 tab, Route: PO, Drug form: TAB, BID, Dosing Weight 132.727, kg, PRN Shortness of breath, Start date: 03/09/16 19:58:00 CDT, Duration: 30 day, Stop date: 04/08/16 19:57:00 FIXING MACHINE OPERATOR Start Date: 03/09/16 Stop Date: 03/11/16 Status: DiscontinuedCombivent inhalation aerosol with adapter 2 puff, Route: INHALER, Drug Form: AERO, Dosing Weight 132.727, kg, BID, PRN Shortness of breath, Start date: 03/09/16 19:58:00 CDT, Duration: 30 day, Stop date: 04/08/16 19:57:00 FIXING MACHINE OPERATOR Notes: Same as: Combivent RespimatWASTE: Aerosol - Return to Pharmacy Start Date: 03/09/16 Stop Date: 03/11/16 Status: Discontinuedfurosemide 40 mg oral tablet 40 mg, 1 tab, Route: PO, Drug form: TAB, BID, Dosing Weight 132.727, kg, Start date: 03/10/16 9:00:00 CDT, Duration: 30 day, Stop date: 04/08/16 17:00:00 FIXING MACHINE OPERATOR Notes: (Same as: Lasix) May cause GI upset. Give with food or milk. Start Date: 03/10/16 Stop Date: 03/10/16 Status: DiscontinuedhydrALAZINE 50 mg oral tablet 50 mg, 1 tab, Route: PO, Drug form: TAB, TID, Dosing Weight 132.727, kg, Start date: 03/10/16 9:00:00 CDT, Duration: 30 day, Stop date: 04/08/16 17:00:00 FIXING MACHINE OPERATOR Notes: (Same as: Apresoline) May interfere w/enteral feedings Take With Food Start Date: 03/10/16 Stop Date: 03/10/16 Status: DiscontinuedhydrALAZINE 50 mg oral tablet 50 mg=1 tab, PO, TID, # 90 tab, 3 Refill(s) Start Date: 03/09/16 Stop Date: 03/11/16 Status: Discontinuedlosartan 100 mg, 2 tab, Route: PO, Drug form: TAB, Daily, Dosing Weight 132.727, kg, Start date: 03/10/16 9:00:00 CDT, Duration: 30 day, Stop date: 04/08/16 9:00:00 FIXING MACHINE OPERATOR Notes: (Same as: Cozaar) Start Date: 03/10/16 Stop Date: 03/11/16 Status: DiscontinuedLyrica 200 mg, 2 cap, Route: PO, Drug form: CAP, BID, Dosing Weight 132.727, kg, Start date: 03/10/16 9:00:00 CDT, Duration: 30 day, Stop date: 04/08/16 17:00:00 FIXING MACHINE OPERATOR, Patient's Own Meds Notes: (Same as: Lyrica) Start Date: 03/10/16 Stop Date: 03/11/16 Status: DiscontinuedSenokot 17.2 mg, 2 tab, Route: PO, Drug form: TAB, Bedtime, Start date: 03/09/16 21:00: 00 CDT, Duration: 30 day, Stop date: 04/07/16 21:00:00 FIXING MACHINE OPERATOR Notes: (Same as: Senokot) Start Date: 03/09/16 Stop Date: 03/11/16 Status: DiscontinuedSenokot S 2 tab, Route: PO, Dosing Weight 132.727, kg, Bedtime, Start date: 03/09/16 21:00 :00 CDT, Duration: 30 day, Stop date: 04/07/16 21:00:00 FIXING MACHINE OPERATOR Start Date: 03/09/16 Stop Date: 03/09/16 Status: DeletedSodium Chloride 0.9% IV 250 mL, Route: IVPB, Start date: 03/10/16 15:01:00 CDT, Duration: 30 day, Stop date: 04/09/16 14:00:00 FIXING MACHINE OPERATOR, PRN Line Flush Start Date: 03/10/16 Stop Date: 03/11/16 Status: Discontinued Results ELECTROLYTES Most recent to oldest [Reference Range]: 1 2 Sodium Lvl [135-145 mEq/L] 143 mEq/L 143 mEq/L (03/11/16 4:32 AM) (03/09/16 4:57 PM) Potassium Lvl [3.5-5.1 mEq/L] 3.7 mEq/L 3.8 mEq/L (03/11/16 4:32 AM) (03/09/16 4:57 PM) Chloride Lvl [95-109 mEq/L] 107 mEq/L 104 mEq/L (03/11/16 4:32 AM) (03/09/16 4:57 PM) CO2 [24-32 mEq/L] 24 mEq/L 29 mEq/L (03/11/16 4:32 AM) (03/09/16 4:57 PM) AGAP [10.0-20.0 mEq/L] 15.7 mEq/L 13.8 mEq/L (03/11/16 4:32 AM) (03/09/16 4:57 PM) CHEM PANEL Most recent to oldest [Reference Range]: 1 2 Creatinine Lvl [0.50-1.40 mg/dL] 1.70 mg/dL 2.00 mg/dL *HI* *HI* (03/11/16 4:32 AM) (03/09/16 4:57 PM) eGFR 43 mL/min/1.73m2 1 35 mL/min/1.73m2 2 *NA* *NA* (03/11/16 4:32 AM) (03/09/16 4:57 PM) BUN [7-22 mg/dL] 34 mg/dL 34 mg/dL *HI* *HI* (03/11/16 4:32 AM) (03/09/16 4:57 PM) Glucose Lvl [70-99 mg/dL] 114 mg/dL 145 mg/dL *HI* *HI* (03/11/16 4:32 AM) (03/09/16 4:57 PM) Calcium Lvl [8.5-10.5 mg/dL] 7.9 mg/dL 8.2 mg/dL *LOW* *LOW* (03/11/16 4:32 AM) (03/09/16 4:57 PM) 1Result Comment: The eGFR is calculated [...] recent to oldest [Reference Range]: 1 2 Total CK [12-191 unit/L] 84 unit/L (03/09/16 4:57 PM) CK MB [0.5-3.6 ng/mL] 1.7 ng/mL (03/09/16 4:57 PM) CK MB Index [0.0-2.5] 2.0 (03/09/16 4:57 PM) Troponin-I [0.00-0.40 ng/mL] 0.19 ng/mL (03/09/16 4:57 PM) BNP [<=100 pg/mL] 241 pg/mL *HI* (03/09/16 4:57 PM) LIPIDS Most recent to oldest [Reference Range]: 1 2 CHD Risk [4.00-7.30] 1.89 *LOW* (03/11/16 4:32 AM) Chol [<=199 mg/dL] 102 mg/dL (03/11/16 4:32 AM) Trig [<=149 mg/dL] 85 mg/dL (03/11/16 4:32 AM) HDL [>=61 mg/dL] 54 mg/dL *LOW* (03/11/16 4:32 AM) LDL (Calculated) [<=99 mg/dL] 31 mg/dL (03/11/16 4:32 AM) VLDL 17 *NA* (03/11/16 4:32 AM) URINE AND STOOL Most recent to oldest [Reference Range]: 1 2 UA Turbidity [Clear] Clear (03/09/16 4:57 PM) UA Color [Yellow] Light Yellow *NA* (03/09/16 4:57 PM) UA pH [5.0-8.0] 7.0 (03/09/16 4:57 PM) UA Spec Grav [<=1.030] 1.009 (03/09/16 4:57 PM) UA Glucose [Negative mg/dL] Negative mg/dL *NA* (03/09/16 4:57 PM) UA Blood [Negative] Negative (03/09/16 4:57 PM) UA Ketones [Negative mg/dL] Negative mg/dL *NA* (03/09/16 4:57 PM) UA Protein [Negative mg/dL] Negative mg/dL (03/09/16 4:57 PM) UA Urobilinogen [0.1-1.0 mg/dL] <=1.0 mg/dL *NA* (03/09/16 4:57 PM) UA Bili [Negative] Negative *NA* (03/09/16 4:57 PM) UA Leuk Est [Negative] Small *ABN* (03/09/16 4:57 PM) UA Nitrite [Negative] Negative (03/09/16 4:57 PM) UA WBC [0-5 /HPF] 6 /HPF *HI* (03/09/16 4:57 PM) UA RBC [0-2 /HPF] 1 /HPF (03/09/16 4:57 PM) UA Sq Epi [Few /LPF] Occasional /LPF *NA* (03/09/16 4:57 PM) HEMATOLOGY Most recent to oldest [Reference Range]: 1 2 WBC [3.7-10.4 K/CMM] 6.5 K/CMM (03/09/16 4:57 PM) RBC [4.70-6.10 M/CMM] 4.46 M/CMM *LOW* (03/09/16 4:57 PM) Hgb [14.0-18.0 g/dL] 12.4 g/dL *LOW* (03/09/16 4:57 PM) Hct [42.0-54.0 %] 38.7 % *LOW* (03/09/16 4:57 PM) MCV [80.0-94.0 fL] 86.7 fL (03/09/16 4:57 PM) MCH [27.0-31.0 pg] 27.8 pg (03/09/16 4:57 PM) MCHC [32.0-36.0 g/dL] 32.0 g/dL (03/09/16 4:57 PM) RDW [11.5-14.5 %] 18.7 % *HI* (03/09/16 4:57 PM) Platelet [133-450 K/CMM] 143 K/CMM (03/09/16 4:57 PM) MPV [7.4-10.4 fL] 10.1 fL (03/09/16 4:57 PM) Segs [45.0-75.0 %] 63.2 % (03/09/16 4:57 PM) Lymphocytes [20.0-40.0 %] 30.7 % (03/09/16 4:57 PM) Monocytes [2.0-12.0 %] 3.9 % (03/09/16 4:57 PM) Eosinophils [0.0-4.0 %] 1.7 % (03/09/16 4:57 PM) Basophils [0.0-1.0 %] 0.5 % (03/09/16 4:57 PM) Segs-Bands # [1.5-8.1 K/CMM] 4.1 K/CMM (03/09/16 4:57 PM) Lymphocytes # [1.0-5.5 K/CMM] 2.0 K/CMM (03/09/16 4:57 PM) Monocytes # [0.0-0.8 K/CMM] 0.3 K/CMM (03/09/16 4:57 PM) Eosinophils # [0.0-0.5 K/CMM] 0.1 K/CMM (03/09/16 4:57 PM) Basophils # [0.0-0.2 K/CMM] 0.0 K/CMM (03/09/16 4:57 PM) Immunizations No data available for this [...]
--- OUTSIDE RECORDS SUMMARY | 2019-01-23 10:02 | XMS REPORT | Summary of Care ---
:1935 Author Organization [facility] [place] Address [id number] [place] [address]- Encounter HQ Kylahr_khoi(FIN) [id number] Date(s): 04/19/18 - 04/19/18 [facility] [place] [address]- Attending Physician: Arnaldo Morrison MD Referring Physician: Arnaldo Morrison MD Vital Signs No data available for this section Problem List Condition Effective Dates Status Health Status Informant AF - Atrial fibrillation(Confirmed) Active Asbestosis(Confirmed) Active Atrial fibrillation(Confirmed) Active Cardiac catheterization(Confirmed) 04/28/11 Active CHF - Congestive heart Active failure(Confirmed) CVA - Cerebrovascular Resolved accident(Confirmed) Diabetes mellitus(Confirmed)1, 2, 3 Resolved Dizziness(Confirmed) Active DVT - Deep vein thrombosis of lower Active limb(Confirmed) Gout(Confirmed) Active HTN - Hypertension(Confirmed) Active [place] (myocardial Active infarction)(Confirmed) Monoclonal gammopathy(Confirmed)4 Active Morbid obesity(Confirmed) Active Pain(Confirmed) Active Pneumonia(Confirmed) Resolved Sleep apnea(Confirmed) Active 1pt states he is not a [id number] STATES HE IS NOT A [id number] bcfi4ndy platelets Allergies, Adverse Reactions, Alerts Substance Reaction Severity Status sulfa drugs Active Plavix Active Bactrim hives Severe Active NKFA Active Medications No data available for this section Results No data available for this section Immunizations Given and Recorded Vaccine Date Status Refusal Reason pneumococcal 13-valent vaccine 03/25/18 Given influenza virus vaccine, inactivated 03/25/18 Given Procedures Procedure Date Related Diagnosis Body Site Status Fluoroscopic angiography of coronary Completed artery and insertion of stent Fusion of lumbar spine Completed IVC - Insertion of inferior vena caval Completed filter Pacemaker care1 Completed Percutaneous transluminal balloon Completed angioplasty of aorta with stent placement for coarctation of aorta Procedure on back2 Completed 1inserted in Apr 23, [id number] "back surgery" Social History Social History Type Response Substance Abuse Use: None. Alcohol Past, Type Beer. Frequency: 1-2 times per year. Last use: 2 years ago. Stopped age 79 Years. Smoking Status Former smoker; Type: Cigarettes; Exposure to Tobacco Smoke None ; Cigarette Smoking Last 365 Days No; Reg Smoking Cessation Counseling Yes; Other Tobacco Frequency last smoked 40 years ago, pack per three days; entered on: 03/25/18 Assessment and Plan No data available for this section
--- OUTSIDE RECORDS SUMMARY | 2019-01-23 10:03 | XMS REPORT | Summary of Care ---
:1935 Author Organization [facility] Address [address], [place] [address]- Encounter HQ Alyson(GHAZALA) [phone] Date(s): 04/10/17 - 04/11/[address] [address]- Discharge Disposition: Home or Self Care Attending Physician: Kavita Morrison MD Admitting Physician: Kavita Morrison MD Vital Signs Most recent to oldest 1 2 3 [Reference Range]: Height 193.04 cm (04/08/17 3:30 PM) Current Weight 147.443 kg (04/10/17 3:35 AM) Temperature Oral [96.4-99.1 97.9 DegF 98.2 DegF 98.2 DegF DegF] (04/11/17 7:01 AM) (04/11/17 4:00 AM) (04/11/17 12:00 AM) Blood Pressure [90-140/60-90 93/57 mmHg 103/65 mmHg 93/60 mmHg mmHg] (04/11/17 7:01 AM) (04/11/17 4:00 AM) (04/11/17 12:00 AM) Respiratory Rate [14-20 18 BRMIN 18 BRMIN 18 BRMIN BRMIN] (04/11/17 7:01 AM) (04/11/17 4:00 AM) (04/11/17 12:00 AM) Peripheral Pulse Rate [60-100 74 bpm 78 bpm 74 bpm bpm] (04/11/17 7:01 AM) (04/11/17 4:00 AM) (04/11/17 12:00 AM) Weight 145.909 kg (04/08/17 3:30 PM) Body Mass Index 39.16 m2 (04/08/17 3:30 PM) Problem List Condition Effective Dates Status Health Status Informant AF - Atrial fibrillation(Confirmed) Active Asbestosis(Confirmed) Active Atrial fibrillation(Confirmed) Active Cardiac catheterization(Confirmed) 04/28/11 Active CHF - Congestive heart Active failure(Confirmed) CVA - Cerebrovascular Resolved accident(Confirmed) Diabetes mellitus(Confirmed)1, 2, 3 Resolved Dizziness(Confirmed) Active DVT - Deep vein thrombosis of lower Active limb(Confirmed) Gout(Confirmed) Active HTN - Hypertension(Confirmed) Active DC (myocardial Active infarction)(Confirmed) Monoclonal gammopathy(Confirmed)4 Active Morbid obesity(Confirmed) Active Pain(Confirmed) Active Pneumonia(Confirmed) Resolved Sleep apnea(Confirmed) Active 1pt states he is not a [id number] STATES HE IS NOT A [id number] [id number] platelets Allergies, Adverse Reactions, Alerts Substance Reaction Severity Status sulfa drugs Active Plavix Active Bactrim hives Severe Active NKFA Active Medications allopurinol 100 mg, 1 tab, Route: PO, Drug form: TAB, Daily, Dosing Weight 145.909, kg, Start date: 04/09/17 9:00:00 [employer]ITY [employer], Duration: 30 day, Stop date: 05/08/17 9:00:00 SEC[employer]ITY CONTR[employer] RO[employer] OFFICER Notes: (Same as: Zyloprim) Start Date: 04/09/17 Stop Date: 04/11/17 Status: Discontinuedatorvastatin 40 mg, 1 tab, Route: PO, Drug form: TAB, Daily, Dosing Weight 145.909, kg, Start date: 04/09/17 9:00:00 SECURITY CONTROL ROOM OFFICER, Duration: 30 day, Stop date: 05/08/17 9:00:00 SECURITY CONTROL ROOM OFFICER Notes: (Same as: Lipitor) Start Date: 04/09/17 Stop Date: 04/11/17 Status: Discontinuedcarvedilol 25 mg, 1 tab, Route: PO, Drug form: TAB, BID, Dosing Weight 145.909, kg, Start date: 04/08/17 17:00:00 SECURITY CONTROL ROOM OFFICER, Duration: 30 day, Stop date: 05/08/17 9:00:00 SECURITY CONTROL ROOM OFFICER Notes: Give with food. (Same As: Coreg) Start Date: 04/08/17 Stop Date: 04/09/17 Status: Discontinuedcarvedilol 25 mg oral tablet 25 mg=1 tab, PO, BID, # 180 tab, 0 Refill(s) Start Date: 04/08/17 Stop Date: 04/11/17 Status: DiscontinuedCombivent inhalation aerosol with adapter 2 puff, Route: INHALER, Drug Form: AERO, Dosing Weight 145.909, kg, BID, PRN Shortness of breath, Start date: 04/08/17 16:48:00 SECURITY CONTROL ROOM OFFICER, Duration: 30 day, Stop date: 05/08/17 16:47:00 SECURITY CONTROL ROOM OFFICER Notes: Same as: Combivent RespimatWASTE: Aerosol - Return to Pharmacy Start Date: 04/08/17 Stop Date: 04/11/17 Status: DiscontinuedDextrose 50% Syringe 25 gm, 50 mL, Route: IVP, Drug Form: INJ, Dosing Weight 145.909, kg, PRN, PRN Blood Glucose Results,Start date: 04/08/17 16:41:00 SECURITY CONTROL ROOM OFFICER, Duration: 30 day, Stop date: 05/08/17 16:40:00 SECURITY CONTROL ROOM OFFICER Start Date: 04/08/17 Stop Date: 04/11/17 Status: DiscontinuedDextrose 50% Syringe 12.5 gm, 25 mL, Route: IVP, Drug Form: INJ, Dosing Weight 145.909, kg, PRN, PRN Blood Glucose Results, Start date: 04/08/17 16:41:00 SECURITY CONTROL ROOM OFFICER, Duration: 30 day, Stop date: 05/08/17 16:40:00 SECURITY CONTROL ROOM OFFICER Start Date: 04/08/17 Stop Date: 04/11/17 Status: Discontinuedfurosemide 40 mg, 1 tab, Route: PO, Drug form: TAB, BID, Dosing Weight 145.909, kg, Start date: 04/08/17 17:00:00 SECURITY CONTROL ROOM OFFICER, Duration: 30 day, Stop date: 05/08/17 9:00:00 SECURITY CONTROL ROOM OFFICER Notes: (Same as: Lasix) May cause GI upset. Give with food or milk. Start Date: 04/08/17 Stop Date: 04/11/17 Status: Discontinuedglucagon 1 mg, Route: IM, Drug form: PDR/INJ, PRN, Dosing Weight 145.909, kg, PRN Blood Glucose Results, Start date: 04/08/17 16:41:00 SECURITY CONTROL ROOM OFFICER, Duration: 30 day, Stop date : 05/08/17 16:40:00 SECURITY CONTROL ROOM OFFICER Start Date: 04/08/17 Stop Date: 04/11/17 Status: Discontinuedinsulin lispro 5 unit, 0.05 mL, Route: SUB-Q, Drug form: SOLN, TID-Before Meals, Dosing Weight 145.909, kg, PRN Blood Glucose Results, Start date: 04/08/17 16:41:00 SECURITY CONTROL ROOM OFFICER, Duration: 30 day, Stop date: 05/08/17 16:40:00CST Notes: Roll in palms of hands gently; Do not shake `vigorously. (Same as: Humalog )"Single Patient Use Only "WASTE: F/P - Black; E - Municipal Trash Bin Stable for 28 days at room temperature.Expiresin days from Date Start Date: 04/08/17 Stop Date: 04/11/17 Status: Discontinuedinsulin lispro 4 unit, 0.04 mL, Route: SUB-Q, Drug form: SOLN, TID-Before Meals, Dosing Weight 145.909, kg, PRN Blood Glucose Results, Start date: 04/08/17 16:41:00 SECURITY CONTROL ROOM OFFICER, Duration: 30 day, Stop date: 05/08/17 16:40:00CST Notes: Roll in palms of hands gently; Do not shake `vigorously. (Same as: Humalog )"Single Patient Use Only "WASTE: F/P - Black; E - Municipal Trash Bin Stable for 28 days at room temperature.Expiresin days from Date Start Date: 04/08/17 Stop Date: 04/11/17 Status: Discontinuedinsulin lispro 3 unit, 0.03 mL, Route: SUB-Q, Drug form: SOLN, TID-Before Meals, Dosing Weight 145.909, kg, PRN Blood Glucose Results, Start date: 04/08/17 16:41:00 SECURITY CONTROL ROOM OFFICER, Duration: 30 day, Stop date: 05/08/17 16:40:00CST Notes: Roll in palms of hands gently; Do not shake `vigorously. (Same as: Humalog )"Single Patient Use Only "WASTE: F/P - Black; E - Municipal Trash Bin Stable for 28 days at room temperature.Expiresin days from Date Start Date: 04/08/17 Stop Date: 04/11/17 Status: Discontinuedinsulin lispro 2 unit, 0.02 mL, Route: SUB-Q, Drug form: SOLN, TID-Before Meals, Dosing Weight 145.909, kg, PRN Blood Glucose Results, Start date: 04/08/17 16:41:00 SECURITY CONTROL ROOM OFFICER, Duration: 30 day, Stop date: 05/08/17 16:40:00CST Notes: Roll in palms of hands gently; Do not shake `vigorously. (Same as: Humalog )"Single Patient Use Only "WASTE: F/P - Black; E - Municipal Trash Bin Stable for 28 days at room temperature.Expiresin days from Date Start Date: 04/08/17 Stop Date: 04/11/17 Status: Discontinuedinsulin lispro 1 unit, 0.01 mL, Route: SUB-Q, Drug form: SOLN, TID-Before Meals, Dosing Weight 145.909, kg, PRN Blood Glucose Results, Start date: 04/08/17 16:41:00 SECURITY CONTROL ROOM OFFICER, Duration: 30 day, Stop date: 05/08/17 16:40:00CST Notes: Roll in palms of hands gently; Do not shake `vigorously. (Same as: Humalog )"Single Patient Use Only "WASTE: F/P - Black; E - Municipal Trash Bin Stable for 28 days at room temperature.Expiresin days from Date Start Date: 04/08/17 Stop Date: 04/11/17 Status: Discontinuedlosartan 100 mg, 2 tab, Route: PO, Drug form: TAB, Daily, Dosing Weight 145.909, kg, Start date: 04/09/17 9:00:00 SECURITY CONTROL ROOM OFFICER, Duration: 30 day, Stop date: 05/08/17 9:00:00 SECURITY CONTROL ROOM OFFICER Notes: (Same as: Neto) Start Date: 04/09/17 Stop Date: 04/11/17 Status: DiscontinuedSenokot 8.6 mg, 1 tab, Route: PO, Drug form: TAB, BID, Start date: 04/08/17 17:00:00 SECURITY CONTROL ROOM OFFICER , Duration: 30 day, Stop date: 05/08/17 9:00:00 SECURITY CONTROL ROOM OFFICER Notes: (Same as: Senokot) Start Date: 04/08/17 Stop Date: 04/11/17 Status: DiscontinuedSenokot S 1 tab, Route: PO, Dosing Weight 145.909, kg, BID, Start date: 04/08/17 17:00:00 SECURITY CONTROL ROOM OFFICER, Duration: 30 day, Stop date: 05/08/17 9:00:00 SECURITY CONTROL ROOM OFFICER Start Date: 04/08/17 Stop Date: 04/08/17 Status: Deletedtamsulosin 0.4 mg, 1 cap, Route: PO, Drug form: CAP, Bedtime, Dosing Weight 145.909, kg, Start date: 04/08/17 21:00:00 SECURITY CONTROL ROOM OFFICER, Duration: 30 day, Stop date: 05/07/17 21:00: 00 SECURITY CONTROL ROOM OFFICER Notes: (Same As: Flomax) "Do Not Crush" Start Date: 04/08/17 Stop Date: 04/11/17 Status: DiscontinuedTylenol with Codeine #3 oral tablet 1 tab, Route: PO, Drug Form: TAB, Dosing Weight 145.909, kg, Q6H, PRN Pain Score 6-10, Start date: 04/08/17 20:05:00 SECURITY CONTROL ROOM OFFICER, Duration: 30 day, Stop date: 20:04:00 SECURITY CONTROL ROOM OFFICER Notes: Do not exceed 4gm/day of acetaminophen. (Same as: Tylenol with Codeine # 3) Start Date: 04/08/17 Stop Date: 04/11/17 Status: Discontinued Results ELECTROLYTES Most recent to oldest [Reference Range]: 1 2 3 Sodium Lvl [135-145 mEq/L] 134 mEq/L *LOW* (04/08/17 8:31 PM) Potassium Lvl [3.5-5.1 mEq/L] 3.4 mEq/L *LOW* (04/08/17 8:31 PM) Chloride Lvl [95-109 mEq/L] 100 mEq/L (04/08/17 8:31 PM) CO2 [24-32 mEq/L] 26 mEq/L (04/08/17 8:31 PM) AGAP [10.0-20.0 mEq/L] 11.4 mEq/L (04/08/17 8:31 PM) CHEM PANEL Most recent to oldest [Reference Range]: 1 2 3 Creatinine Lvl [0.50-1.40 mg/dL] 2.40 mg/dL *HI* (04/08/17 8:31 PM) eGFR 28 mL/min/1.73m2 1 *NA* (04/08/17 8:31 PM) BUN [7-22 mg/dL] 23 mg/dL *HI* (04/08/17 8:31 PM) Glucose Lvl [70-99 mg/dL] 118 mg/dL *HI* (04/08/17 8:31 PM) Calcium Lvl [8.5-10.5 mg/dL] 8.1 mg/dL *LOW* (04/08/17 8:31 PM) LDH [98-192 unit/L] 301 unit/L *HI* (04/09/17 5:26 PM) Bili Total [0.2-1.3 mg/dL] 0.7 mg/dL (04/09/17 5:26 PM) Bili Direct [0.0-0.3 mg/dL] 0.3 mg/dL (04/09/17 5:26 PM) Bili Indirect [0.0-1.0 mg/dL] 0.4 mg/dL (04/09/17 5:26 PM) Ammonia [<=45.0 uMol/L] <10.0 uMol/L (04/08/17 8:31 PM) 1Result Comment: The eGFR is calculated [...] to oldest [Reference Range]: 1 2 3 CK MB [0.5-3.6 ng/mL] 3.7 ng/mL *HI* (04/08/17 8:31 PM) Troponin-I [0.00-0.40 ng/mL] 0.18 ng/mL (04/08/17 8:31 PM) BNP [<=100 pg/mL] 213 pg/mL *HI* (04/08/17 8:31 PM) ANEMIA STUDY Most recent to oldest [Reference Range]: 1 2 3 Iron [45-160 ug/dl] 50 ug/dl (04/09/17 5:26 PM) Ferritin Lvl [22-275 ng/mL] 316 ng/mL *HI* (04/09/17 5:26 PM) % Satur Fe [12-57 %] 22 % (04/09/17 5:26 PM) UIBC [110-370 ug/dl] 176 ug/dl (04/09/17 5:26 PM) Vitamin B12 Lvl [254-1320 pg/mL] 529 pg/mL (04/09/17 5:26 PM) Folate Lvl [>=3.0 ng/mL] 7.0 ng/mL (04/09/17 5:26 PM) TIBC [228-428 ug/dl] 226 ug/dl *LOW* (04/09/17 5:26 PM) URINE AND STOOL Most recent to oldest [Reference Range]: 1 2 3 UA Turbidity [Clear] Clear (04/09/17 9:14 AM) UA Color Yellow *NA* (04/09/17 9:14 AM) UA pH [5.0-8.0] 6.0 (04/09/17 9:14 AM) UA Spec Grav [<=1.030] 1.010 (04/09/17 9:14 AM) UA Glucose [Negative mg/dL] Negative mg/dL *NA* (04/09/17 9:14 AM) UA Blood [Negative] Negative (04/09/17 9:14 AM) UA Ketones [Negative mg/dL] Negative mg/dL *NA* (04/09/17 9:14 AM) UA Protein [Negative mg/dL] Negative mg/dL (04/09/17 9:14 AM) UA Urobilinogen [0.1-1.0 mg/dL] <=1.0 mg/dL *NA* (04/09/17 9:14 AM) UA Bili [Negative] Negative *NA* (04/09/17 9:14 AM) UA Leuk Est [Negative] Negative (04/09/17 9:14 AM) UA Nitrite [Negative] Negative (04/09/17 9:14 AM) UA WBC [0-5 /HPF] 1 /HPF (04/09/17 9:14 AM) UA RBC [0-2 /HPF] 1 /HPF (04/09/17 9:14 AM) UA Sq Epi [Few /LPF] Occasional /LPF *NA* (04/09/17 9:14 AM) UA Hyal Cast [0-2 /LPF] 7 /LPF *HI* (04/09/17 9:14 AM) UA Mucus [None Seen /LPF] Few /LPF *NA* (04/09/17 9:14 AM) Occult Bld Stl [Negative] Negative (04/10/17 9:39 AM) IMMUNOLOGY Most recent to oldest [Reference Range]: 1 2 3 Haptoglobin [16-200 mg/dL] 25 mg/dL (04/09/17 5:24 PM) HEMATOLOGY Most recent to oldest 1 2 3 [Reference Range]: WBC [3.7-10.4 K/CMM] 4.2 K/CMM 4.2 K/CMM 4.3 K/CMM (04/11/17 5:24 AM) (04/10/17 3:27 AM) (04/08/17 8:31 PM) RBC [4.70-6.10 M/CMM] 3.78 M/CMM 3.60 M/CMM 3.84 M/CMM *LOW* *LOW* *LOW* (04/11/17 5:24 AM) (04/10/17 3:27 AM) (04/08/17 8:31 PM) Hgb [14.0-18.0 g/dL] 11.6 g/dL 11.1 g/dL 11.7 g/dL *LOW* *LOW* *LOW* (04/11/17 5:24 AM) (04/10/17:27 AM) (04/08/17 8:31 PM) Hct [42.0-54.0 %] 34.3 % 32.5 % 35.0 % *LOW* *LOW* *LOW* (04/11/17 5:24 AM) (04/10/17 3:27 AM) (04/08/17 8:31 PM) MCV [80.0-94.0 fL] 90.7 fL 90.3 fL 91.2 fL (04/11/17 5:24 AM) (04/10/17 3:27 AM) (04/08/17 8:31 PM) MCH [27.0-31.0 pg] 30.8 pg 30.8 pg 30.4 pg (04/11/17:24 AM) (04/10/17:27 AM) (04/08/17 8:31 PM) MCHC [32.0-36.0 g/dL] 33.9 g/dL 34.1 g/dL 33.3 g/dL (04/11/17:24 AM) (04/10/17 3:27 AM) (04/08/17 8:31 PM) RDW [11.5-14.5 %] 16.3 % 16.2 % 16.6 % *HI* *HI* *HI* (04/11/17:24 AM) (04/10/17 3:27 AM) (04/08/17 8:31 PM) Platelet [133-450 K/CMM] 74 K/CMM 58 K/CMM 61 K/CMM *LOW* *LOW* *LOW* (04/11/17 5:24 AM) (04/10/17 3:27 AM) (04/08/17 8:31 PM) MPV [7.4-10.4 fL] 9.4 fL 9.1 fL 9.5 fL (04/11/17 5:24 AM) (04/10/17 3:27 AM) (04/08/17 8:31 PM) Segs [45.0-75.0 %] 58.5 % 55.6 % 69.6 % (04/11/17:24 AM) (04/10/17 3:27 AM) (04/08/17 8:31 PM) Lymphocytes [20.0-40.0 33.2 % 35.9 % 26.2 % %] (04/11/17 5:24 AM) (04/10/17:27 AM) (04/08/17 8:31 PM) Monocytes [2.0-12.0 %] 5.2 % 5.2 % 3.0 % (04/11/17 5:24 AM) (04/10/17 3:27 AM) (04/08/17 8:31 PM) Eosinophils [0.0-4.0 %] 2.4 % 2.6 % 1.0 % (04/11/17 5:24 AM) (04/10/17 3:27 AM) (04/08/17 8:31 PM) Basophils [0.0-1.0 %] 0.7 % 0.7 % 0.2 % (04/11/17 5:24 AM) (04/10/17 3:27 AM) (04/08/17 8:31 PM) Segs-Bands # [1.5-8.1 2.4 K/CMM 2.3 K/CMM 3.0 K/CMM K/CMM] (04/11/17 5:24 AM) (04/10/17 3:27 AM) (04/08/17 8:31 PM) Lymphocytes # [1.0-5.5 1.4 K/CMM 1.5 K/CMM 1.1 K/CMM K/CMM] (04/11/17 5:24 AM) (04/10/17 3:27 AM) (04/08/17 8:31 PM) Monocytes # [0.0-0.8 0.2 K/CMM 0.2 K/CMM 0.1 K/CMM K/CMM] (04/11/17 5:24 AM) (04/10/17 3:27 AM) (04/08/17 8:31 PM) Eosinophils # [0.0-0.5 0.1 K/CMM 0.1 K/CMM 0.0 K/CMM K/CMM] (04/11/17 5:24 AM) (04/10/17 3:27 AM) (04/08/17 8:31 PM) Basophils # [0.0-0.2 0.0 K/CMM K/CMM] (04/08/17 8:31 PM) PB Smear Path Mild anemia with normochromic, normocytic indices. Moderate thrombocytopenia. No significant microangiopathic changes identified. Clinical and laboratory correlation required. *NA* (04/09/17 5:26 PM) Retic Auto [0.5-1.5 %] 0.8 % (04/09/17 5:24 PM) PT [12.0-14.7 seconds] 19.1 seconds 19.8 seconds *HI* *HI* (04/09/17 5:24 PM) (04/08/17 8:31 PM) INR [0.85-1.17] 1.59 1.67 *HI* *HI* (04/09/17 5:24 PM) (04/08/17 8:31 PM) Fibrinogen Lvl [230-510 436 mg/dL mg/dL] (04/09/17 5:24 PM) FSP [<5 ug/ml] >=20 ug/ml *ABN* (04/09/17 5:24 PM) D-Dimer 9.69 ug/mL FEU *NA* (04/09/17 5:24 PM) PTT [22.9-35.8 seconds] 28.0 seconds 26.7 seconds (04/09/17 5:24 PM) (04/08/17 8:31 PM) Immunizations No data available for this [...] Type Response Substance Abuse Use: None. Alcohol Current, Type Beer. Frequency: 1-2 times per year. Last use: 2 years ago. Stopped age 79 Years. Smoking Status Former smoker; Type: Cigarettes; Exposure to Tobacco Smoke None ; Cigarette Smoking Last 365 Days No; Reg Smoking Cessation Counseling Yes; Other Tobacco Frequency last smoked 40 years ago, pack per three days; Assessment and Plan Extracted from: Title: Neurology Consultation Author: Mila Adams NP Date: 04/09/17 Patient: JAVIER BUNCH Age: 81 years Sex: Male : 1935 Associated Diagnoses: None Author: Mila Adams NP Chief Complaint 04/08/2017 14:41 almost passed out History of Present Illness This is an 81-year old male with PMHx significant for hypertension, CHF, s/p AICD/pacemaker placement (two years ago), and recent (within the past several months) history of blood in stool and thrombocy topenia of unclear etiology who presented to [facility] ED on 04/08/17 for a cheif complaint of "near passing out episode." The patient reports that he awoke in his usual state of health yesterday morning; wa s getting into the car to drive to an outpatient appointment ("for his platelets") when he suddenly felt dizziness, further described as light headed; also became diaphoretic; reportedly witnseed " eyes roll back into head" and very brief (1-2 seconds) period of unresponsivenss. Patient reports that awoke to his an daughter asking if he was OK; states that he did not experience incontinecne o r mouth trauma/tongue biting. Had rapid return to baseline with no addtional episodes yesterday. Was subsequently brought to [facility]; patient reports they "checked blood work there," th en sent him here for further work up/neurological evaluation. Patient admits to one previous similar episode several months ago, in which he was walking to the bathroom, sat down on the commode and felt dizzy/light headed, diaphoretic and short of breath; subsequent "fell over" onto to the bathtub, no LOC, denies associated trauma. Currently, patient is sittin gup in bed; awake and alert. Denies dizzi ness/lightheadedness; denies headache or neck pain. Denies weakness or unilateral weakness/numbness/tingling to any part of the body. Denies recent problems wtih vision, speech or swallowing. Reports th at he "is feeling back to normal." Of note, patient's platelet count found to be 61 k/cmm at time of presentation here; also with azotemia, specifically Cr 2.40. No documented history of CKD. No leukocytosis, UA WNL, CXR unremarkable. Neurology has been consulted to further evaluate the findings noted above. Review of Systems Constitutional: No fevers, chills, night sweats, recent weight loss or weight gain. CV: No chest pain, no heart palpitations. Respiratory: No SOB or cough. GI: No nausea or vomitting, no abdominal pain. : No dysuria. Musculoskeletal: No muscle pain or joint pain. Integumentary: No rash or pruritus. Neuro: As noted above. Health Status Allergies: Allergic Reactions (Selected) Severe Bactrim- Hives. Severity Not Documented NKFA- No reactions were documented. Plavix- No reactions were documented. Sulfa drugs- No reactions were documented., Allergies (4) Active Reaction Bactrim hives NKFA None Documented Plavix None Documented sulfa drugs None Documented Current medications: (Selected) Inpatient Medications Ordered Combivent inhalation aerosol with adapter: 2 puff, INHALER, BID, PRN: Shortness of breath Dextrose 50% Syringe: 12.5 gm, 25 mL, IVP, PRN, PRN: Blood Glucose Results Dextrose 50% Syringe: 25 gm, 50 mL, IVP, PRN, PRN: Blood Glucose Results Senokot: 8.6 mg, 1 tab, PO, BID Tylenol with Codeine #3 oral tablet: 1 tab, PO, Q6H, PRN: Pain Score 6-10 allopurinol: 100 mg, 1 tab, PO, Daily atorvastatin: 40 mg, 1 tab, PO, Daily carvedilol: 25 mg, 1 tab, PO, BID furosemide: 40 mg, 1 tab, PO, BID glucagon: 1 mg, IM, PRN, PRN: Blood Glucose Results insulin lispro: 1 unit, 0.01 mL, SUB-Q, TID-Before Meals, PRN: Blood Glucose Results insulin lispro: 2 unit, 0.02 mL, SUB-Q, TID-Before Meals, PRN: Blood Glucose Results insulin lispro: 3 unit, 0.03 mL, SUB-Q, TID-Before Meals, PRN: Blood Glucose Results insulin lispro: 4 unit, 0.04 mL, SUB-Q, TID-Before Meals, PRN: Blood Glucose Results insulin lispro: 5 unit, 0.05 mL, SUB-Q, TID-Before Meals, PRN: Blood Glucose Results losartan: 100 mg, 2 tab, PO, Daily tamsulosin: 0.4 mg, 1 cap, PO, Bedtime Documented Medications Suspended Combivent inhalation aerosol with adapter: 2 puff, INHALER, BID, PRN: SOB, 0 Refill(s) Senokot S: 1 tab, PO, BID, 0 Refill(s) allopurinol 100 mg oral tablet: 100 mg, 1 tab, PO, Daily, 90 tab, 1 Refill(s) atorvastatin 40 mg oral tablet: 40 mg, 1 tab, PO, Daily, 0 Refill(s) carvedilol 25 mg oral tablet: 25 mg, 1 tab, PO, BID, 180 tab, 0 Refill(s) furosemide: 40 mg, PO, BID, 0 Refill(s) losartan: 100 mg, PO, Daily, 0 Refill(s) tamsulosin: 0.4 mg, PO, Bedtime, 0 Refill(s), Medications (17) Active Scheduled: (7) allopurinol 100 mg TAB 100 mg 1 tab, PO, Daily atorvastatin 40mg tab 40 mg 1 tab, PO, Daily carvedilol 25 mg TAB 25 mg 1 tab, PO, BID furosemide 40 mg TAB 40 mg 1 tab, PO, BID losartan 50 mg TAB 100 mg 2 tab, PO, Daily senna 8.6 mg TAB 8.6 mg 1 tab, PO, BID tamsulosin 0.4 mg CAP 0.4 mg 1 cap, PO, Bedtime Continuous: (0) PRN: (10) acetaminophen-codeine 300-30 mg TAB 1 tab, PO, Q6H albuterol-ipratropium 100-20 microgram/ 4gm AERO 2 puff, INHALER, BID Dextrose 50% 50 ml INJ syringe 12.5 gm 25 mL, IVP, PRN Dextrose 50% 50 ml INJ syringe 25 gm 50 mL, IVP, PRN glucagon recombinant 1 mg PDR 1 mg, IM, PRN insulin lispro 100 unit/ml 3 ml Pen 1 unit 0.01 mL, SUB-Q, TID-Before Meals insulin lispro 100 unit/ml 3 ml Pen 2 unit 0.02 mL, SUB-Q, TID-Before Meals insulin lispro 100 unit/ml 3 ml Pen 3 unit 0.03 mL, SUB-Q, TID-Before Meals insulin lispro 100 unit/ml 3 ml Pen 4 unit 0.04 mL, SUB-Q, TID-Before Meals insulin lispro 100 unit/ml 3 ml Pen 5 unit 0.05 mL, SUB-Q, TID-Before Meals Problem list: All Problems (Selected) AF - Atrial fibrillation / SNOMED CT 8853787732 / Confirmed Asbestosis / SNOMED CT [id number] / Confirmed Atrial fibrillation / SNOMED CT 10315108 / Confirmed Cardiac catheterization / SNOMED CT 90239395 / Confirmed CHF - Congestive heart failure / SNOMED CT 515465076 / Confirmed Dizziness / SNOMED CT 5759267511 / Confirmed DVT - Deep vein thrombosis of lower limb / SNOMED CT 7263406709 / Confirmed Gout / SNOMED CT [id number] / Confirmed HTN - Hypertension / SNOMED CT 7755284184 / Confirmed DC (myocardial infarction) / SNOMED CT [id number] / Confirmed Monoclonal gammopathy / SNOMED CT [id number] / Confirmed low platelets Morbid obesity / SNOMED CT 864317430 / Confirmed Pain / SNOMED CT 19533964 / Confirmed Sleep apnea / SNOMED CT 606175399 / Confirmed, Active Problems (14) AF - Atrial fibrillation Asbestosis Atrial fibrillation Cardiac catheterization CHF - Congestive heart failure Dizziness DVT - Deep vein thrombosis of lower limb Gout HTN - Hypertension DC (myocardial infarction) Monoclonal gammopathy Morbid obesity Pain Sleep apnea Histories Past Medical History: Active CHF - Congestive heart failure (647326545) HTN - Hypertension (9613608824) DVT - Deep vein thrombosis of lower limb (3275242949) Sleep apnea (658361485) Atrial fibrillation (12017829) Asbestosis ([id number]) Gout ([id number]) DC (myocardial infarction) ([id number]) Monoclonal gammopathy ([id number]) Comments: 02/26/2014 CDT 04:18 CDT - Ivonne Gray RN low platelets Resolved Diabetes mellitus (843957774): Resolved. 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 Pneumonia ([id number]): Resolved. Family History: Heart disease Sister High blood pressure Mother Heart failure Brother Type 2 diabetes mellitus Mother Sister Pacemaker care Brother Procedure history: Fusion of lumbar spine (177392382). Procedure on back (271743594). Comments: 07/20/2012 15:54 - Natalia Yu RN states "back surgery" IVC - Insertion of inferior vena caval filter (2976843333). Percutaneous transluminal balloon angioplasty of aorta with stent placement for coarctation of aorta (3024385599). Fluoroscopic angiography of coronary artery and insertion of stent (8224826159) . Pacemaker care ([id number]). Comments: 01/17/2016 19:52 - Ramonita Anthony RN inserted in Apr 23, 2015 Social History Social & Psychosocial Habits Alcohol 04/08/2017 Use: Current Type: Beer Frequency: 1-2 times per year Last Use 2 years ago Stopped at age: 79 Years Substance Abuse 04/08/2017 Use: None Tobacco 02/26/2014 Use: Former smoker Exposure to Tobacco Smoke None Cigarette Smoking Last 365 Days Yes Reg Smoking Cessation Counseling Yes Comment: stop 37 yrs ago - 02/26/2014 02:28 - Ivonne Gray RN 04/08/2017 Use: Former smoker Type: Cigarettes Exposure to Tobacco Smoke None Other Tobacco Frequency last smoked 40 years ago, pack per three days Cigarette Smoking Last 365 Days No Reg Smoking Cessation Counseling Yes . Physical Examination VS/Measurements Measurements from flowsheet : Measurements 04/08/2017 15:31 Heparin Dosing Weight (kg) 110.44 04/08/2017 15:30 Height 193.04 cm Height Collection Method Estimated Weight 145.909 kg Dosing Weight Difference Percent -1.352 % Dosing Weight Collection Method Measured Body Surface Area 2.7971 m2 Body Mass Index 39.16 m2 , Vital Signs (last 24 hrs) Last Charted Temp Oral 98.3 DegF (APR 09) Heart Rate Peripheral 97 bpm (APR 09) Resp Rate 20 BRMIN (APR 09) SBP 97 mmHg (APR 09) DBP 61 mmHg (APR 09) SpO2 100 % (APR 08) Weight 145.90 kg (APR 08) Height 193.04 cm (APR 08) BMI 39.16 (APR 08) Labs Most Recent Results Previous Results Previous Results Previous Results WBC 4.3 (APR 08) -- -- -- Hgb L 11.7 (APR 08) -- -- -- Hct L 35.0 (APR 08) -- -- -- Plt L 61 (APR 08) -- -- -- Na L 134 (APR 08) -- -- -- K L 3.4 (APR 08) -- -- -- CO2 26 (APR 08) -- -- -- Cl 100 (APR 08) -- -- -- Cr H 2.40 (APR 08) -- -- -- BUN H 23 (APR 08) -- -- -- Glucose Random H 118 (APR 08) -- -- -- Ca L 8.1 (APR 08) -- -- -- PT H 19.8 (APR 08) -- -- -- INR H 1.67 (APR 08) -- -- -- PTT 26.7 (APR 08) -- -- -- Troponin 0.18 (APR 08) -- -- -- CK MB H 3.7 (APR 08) -- -- -- Reviewed: CT Brain (04/09): No acute findings; 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 TTE (03/26): EF 60-65%; moderat LVH. Impression and Plan 81-year old male with PMHx significant for hypertension, CHF, s/p AICD/ pacemaker placement (two years ago), and recent (within the past several months ) history of blood in stool and anemia/thrombocytope neel of unclear etiology who presented to [facility] ED on 04/08/17 for a cheif complaint of syncope vs near syncope. Episode characterized by sudden light headedness, diaphoresis, and brief (1-2 seconds) twila od of unresponsiveness. Patient then had rapid return to baseline, no asscociated incontinence or mouth trauma/tongue biting. No addtional episodes; however does admit to similar episode several months ago. Neruological exam is currently intact and at baseline; patient subjectively reports that he feels at baseline. CT Brain has revealed 8 mm thick chornic subdural hematoma vs hygroma to left lateral cerebellar region with 2 mm midline shift; case/imaging discussed with neurosurgery (Dr. Wilhelm); no intervention needed nor suspected involvement with patient's current episode. Considering the findin gs noted above, would most likely attribute patient's symptoms to a near- syncope/syncopal episode instead of an acute neurological process. Impresion: Syncope vs. near syncope; cardiac vs. other etiology (orthostatic, anemia/ thrombocytopenia, dehydration, dysautonomia). Recommendations/Plan: -Telemetry; EKG currently in paced rhythm. TTE pending; note recent (03/26) TTE with EF 65%. Recommend serial cardiac enzymes/troponins; also recommend to consider cardiology and/or cardiophys. consult for AICD interrogation. -Check orthostatic VS. Note patient's SBP consistently 90s-100s; Recommend review/reconcillation of patient's home antihypertensive medication regimen. -PT/OT eval and treat for functional eval, as patient lives alone with elderly . -All other medical management per primary team and other consultants. The plan of care above has been dicussed with Dr. Vira Johns, who agrees. Please call with questions/concerns. Thank you for the opportunity to participate in this patient's care. Addendum by Vira Johns MD on Patient seen and examined with Mila Adams. 81 04/09/2017 15:49 yo man with syncope/presyncope. Neuro exam no focal findings. CT reviewed, negative for acute changes. Recommend syncope workup with telemetry, cardiac enzymes, and pacemaker interrogation. Recent echo negative for aortic stenosis. 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 PT/OT evals. No further receommendations at this time. Please call with any questions.
--- OUTSIDE RECORDS SUMMARY | 2019-01-23 10:03 | XMS REPORT | Summary of Care ---
:1935 Author Organization [facility] Address [facility] [place], [place] [address]- Encounter HQ Alyson(FIN) [phone] Date(s): 03/25/18 - 03/29/[address] [address]- Encounter Diagnosis Sick sinus syndrome (Final) - 04/06/18 Immune thrombocytopenic purpura (Final) - Hypertensive heart and chronic kidney disease with heart failure and stage 1 through stage 4 chronickidney disease, or unspecified chronic kidney disease ( Final) - Paroxysmal atrial fibrillation (Final) - Encounter for immunization (Final) - Metabolic syndrome (Final) - Morbid (severe) obesity due to excess calories (Final) - Dilated cardiomyopathy (Final) - Atherosclerotic heart disease of [place] coronary artery without angina pectoris (Final) - Chronic kidney disease, stage 3 (moderate) (Final) - Hyperlipidemia, unspecified (Final) - Bronchitis, not specified as acute or chronic (Final) - Unspecified osteoarthritis, unspecified site (Final) - Gout, unspecified (Final) - Presence of cardiac pacemaker (Final) - Personal history of nicotine dependence (Final) - Type 2 diabetes mellitus with diabetic chronic kidney disease (Final) - Heart failure, unspecified (Final) - Coronary angioplasty status (Final) - Personal history of transient ischemic attack (TIA), and cerebral infarction without residual deficits (Final) - Anemia, unspecified (Final) - Sleep apnea, unspecified (Final) - Hypotension, unspecified (Final) - Personal history of other venous thrombosis and embolism (Final) - 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) - Monoclonal gammopathy (Final) - Discharge Disposition: Home or Self Care Attending Physician: Kavita Morrison MD Admitting Physician: Kavita Morrison MD Referring Physician: Vinh Roth MD Vital Signs Most recent to oldest 1 2 3 [Reference Range]: Height 193.04 cm (03/25/18 3:42 PM) Temperature Oral 97.5 DegF 98.4 DegF 98.3 DegF [96.4-99.1 DegF] (03/29/18 11:39 AM) (03/29/18 7:52 AM) (03/29/18 3:30 AM) Blood Pressure 129/71 mmHg 156/85 mmHg 135/76 mmHg [90-140/60-90 mmHg] (03/29/18 11:39 AM) *HI* (03/29/18 3:30 AM) (03/29/18 7:52 AM) Respiratory Rate [14-20 18 BRMIN 18 BRMIN 20 BRMIN BRMIN] (03/29/18 11:39 AM) (03/29/18 7:52 AM) (03/29/18 12:00 AM) Peripheral Pulse Rate 69 bpm 82 bpm 78 bpm [60-100 bpm] (03/29/18 11:39 AM) (03/29/18 7:52 AM) (03/29/18 3:30 AM) Weight 138.095 kg 137.727 kg (03/29/18 6:08 AM) (03/25/18 3:42 PM) Body Mass Index 36.96 m2 (03/25/18 3:42 PM) Problem List Condition Effective Dates Status Health Status Informant AF - Atrial fibrillation(Confirmed) Active Asbestosis(Confirmed) Active Atrial fibrillation(Confirmed) Active Cardiac catheterization(Confirmed) 04/28/11 Active CHF - Congestive heart Active failure(Confirmed) CVA - Cerebrovascular Resolved accident(Confirmed) Diabetes mellitus(Confirmed)1, 2, 3 Resolved Dizziness(Confirmed) Active DVT - Deep vein thrombosis of lower Active limb(Confirmed) Gout(Confirmed) Active HTN - Hypertension(Confirmed) Active [place] (myocardial Active infarction)(Confirmed) Monoclonal gammopathy(Confirmed)4 Active Morbid obesity(Confirmed) Active Pain(Confirmed) Active Pneumonia(Confirmed) Resolved Sleep apnea(Confirmed) Active 1pt states he is not a [id number] STATES HE IS NOT A [id number] platelets Allergies, Adverse Reactions, Alerts Substance Reaction Severity Status sulfa drugs Active Plavix Active Bactrim hives Severe Active NKFA Active Medications allopurinol 100 mg, 1 tab, Route: PO, Drug form: TAB, Daily, Dosing Weight 137.727, kg, Start date: 03/26/18 9:00:00 QUANTITATIVE CONSULTANT, Duration: 30 day, Stop date: 04/24/18 9:00:00 QUANTITATIVE CONSULTANT Notes: (Same as: Zyloprim) Start Date: 03/26/18 Stop Date: 03/29/18 Status: DiscontinuedAMIODarone 200 mg, 1 tab, Route: PO, Drug form: TAB, BID, Dosing Weight 137.727, kg, Start date: 03/28/18 17:00:00 QUANTITATIVE CONSULTANT, Duration: 30 day, Stop date: 04/27/18 9:00:00 QUANTITATIVE CONSULTANT Notes: (Same as: Cordarone) Start Date: 03/28/18 Stop Date: 03/29/18 Status: DiscontinuedAMIODarone 400 mg, 2 tab, Route: PO, Drug form: TAB, TID-Meals, Dosing Weight 137.727, kg, Start date: 03/26/1817:00:00 QUANTITATIVE CONSULTANT, Duration: 30 day, Stop date: 04/25/18 12:00: 00 QUANTITATIVE CONSULTANT Notes: (Same as: Cordarone) Start Date: 03/26/18 Stop Date: 03/28/18 Status: DiscontinuedAMIODarone 400 mg, 2 tab, Route: PO, Drug form: TAB, TID, Dosing Weight 137.727, kg, Start date: 03/25/18 17:00:00 QUANTITATIVE CONSULTANT, Duration: 30 day, Stop date: 04/24/18 13:00:00 QUANTITATIVE CONSULTANT Notes: (Same as: Cordarone) Start Date: 03/25/18 Stop Date: 03/26/18 Status: DiscontinuedAMIODarone 200 mg oral tablet 200 mg=1 tab, PO, BID, 0 Refill(s) Start Date: 03/29/18 Status: Orderedamoxicillin-clavulanate 875 mg, Route: PO, Drug form: TAB, Daily, Dosing Weight 137.727, kg, Start date : 03/26/18 9:00:00 QUANTITATIVE CONSULTANT, Duration: 30 day, Stop date: 04/24/18 9:00:00 QUANTITATIVE CONSULTANT Notes: With food.(Same as: Augmentin 875) Start Date: 03/26/18 Stop Date: 03/26/18 Status: Discontinuedaspirin 81 mg tablet, enteric coated 81 mg=1 tab, PO, Daily, # 90 tab, 3 Refill(s) Start Date: 03/25/18 Status: Orderedaspirin 81 mg tablet, enteric coated 81 mg, 1 tab, Route: PO, Drug form: ECTAB, Daily, Dosing Weight 137.727, kg, Start date: 03/26/18 9:00:00 QUANTITATIVE CONSULTANT, Duration: 30 day, Stop date: 04/24/18 9:00:00 QUANTITATIVE CONSULTANT Notes: Do not crush or chew.(Same As: Ecotrin) Start Date: 03/26/18 Stop Date: 03/29/18 Status: Discontinuedatorvastatin 40 mg, 1 tab, Route: PO, Drug form: TAB, Bedtime, Dosing Weight 137.727, kg, Start date: 03/25/18 21:00:00 QUANTITATIVE CONSULTANT, Duration: 30 day, Stop date: 04/23/18 21:00: 00 QUANTITATIVE CONSULTANT Notes: (Same as: Lipitor) Start Date: 03/25/18 Stop Date: 03/29/18 Status: Voided With ResultsAugmentin 875 mg, PO, Daily, # 20 tab, 0 Refill(s) Start Date: 03/25/18 Stop Date: 03/29/18 Status: Discontinuedcarvedilol 25 mg, PO, BID, 0 Refill(s) Start Date: 03/25/18 Status: Orderedcarvedilol 25 mg, 1 tab, Route: PO, Drug form: TAB, BID, Dosing Weight 137.727, kg, Start date: 03/25/18 17:00:00 QUANTITATIVE CONSULTANT, Duration: 30 day, Stop date: 04/24/18 9:00:00 QUANTITATIVE CONSULTANT Notes: Give with food. (Same As: Coreg) Start Date: 03/25/18 Stop Date: 03/27/18 Status: DiscontinuedCombivent inhalation aerosol with adapter 2 puff, Route: INHALER, Drug Form: AERO/A, Dosing Weight 137.727, kg, BID, PRN Wheezing, Start date:03/25/18 16:51:00 QUANTITATIVE CONSULTANT, Duration: 30 day, Stop date: 16:50:00 QUANTITATIVE CONSULTANT Start Date: 03/25/18 Stop Date: 03/25/18 Status: DeletedDextrose 50% Syringe 12.5 gm, 25 mL, Route: IVP, Drug Form: INJ, Dosing Weight 137.727, kg, PRN, PRN Blood Glucose Results, Start date: 03/26/18 12:50:00 QUANTITATIVE CONSULTANT, Duration: 30 day, Stop date: 04/25/18 12:49:00 QUANTITATIVE CONSULTANT Start Date: 03/26/18 Stop Date: 03/29/18 Status: DiscontinuedDextrose 50% Syringe 25 gm, 50 mL, Route: IVP, Drug Form: INJ, Dosing Weight 137.727, kg, PRN, PRN Blood Glucose Results,Start date: 03/26/18 12:50:00 QUANTITATIVE CONSULTANT, Duration: 30 day, Stop date: 04/25/18 12:49:00 QUANTITATIVE CONSULTANT Start Date: 03/26/18 Stop Date: 03/29/18 Status: Discontinueddocusate sodium 100 mg oral capsule 100 mg, 1 cap, Route: PO, Drug form: CAP, BID, Start date: 03/26/18 9:00:00 QUANTITATIVE CONSULTANT , Duration: 30 day, Stop date: 04/24/18 17:00:00 QUANTITATIVE CONSULTANT Notes: (Same as: Colace) (Do Not Crush) Start Date: 03/26/18 Stop Date: 03/29/18 Status: DiscontinuedDuoNeb inhalation solution 3 mL, Route: NEB, Drug Form: SOLN, RQ12H, Start date: 03/25/18 17:22:00 QUANTITATIVE CONSULTANT, Duration: 30 day, Stop date: 04/24/18 16:00:00 QUANTITATIVE CONSULTANT Notes: (Same as: Duoneb) Start Date: 03/25/18 Stop Date: 03/29/18 Status: DiscontinuedEliquis 2.5 mg oral tablet 2.5 mg, PO, Q12H, # 60 tab, 0 Refill(s), called to pharmacy Start Date: 03/30/18 Status: OrderedfentaNYL 100 microgram, Route: IV, ONCE, Dosing Weight 137.727, kg, Start date: 03/28/18 14:12:00 QUANTITATIVE CONSULTANT, Stop date: 03/28/18 14:12:00 QUANTITATIVE CONSULTANT Start Date: 03/28/18 Stop Date: 03/28/18 Status: Completedfurosemide 40 mg oral tablet 40 mg, 1 tab, Route: PO, Drug form: TAB, Daily, Dosing Weight 137.727, kg, Start date: 03/27/18 9:00:00 QUANTITATIVE CONSULTANT, Duration: 30 day, Stop date: 04/25/18 9:00:00 QUANTITATIVE CONSULTANT Notes: (Same as: Lasix) May cause GI upset. Give with food or milk. Start Date: 03/27/18 Stop Date: 03/27/18 Status: Voided With Resultsgabapentin 100 mg oral capsule 200 mg=2 cap, PO, BID, 0 Refill(s) Start Date: 03/25/18 Status: Orderedgabapentin 100 mg oral capsule 200 mg, 2 cap, Route: PO, Drug form: CAP, BID, Dosing Weight 137.727, kg, Start date: 03/25/18 17:00:00 QUANTITATIVE CONSULTANT, Duration: 30 day, Stop date: 04/24/18 9:00:00 QUANTITATIVE CONSULTANT Notes: (Same as: Neurontin) Start Date: 03/25/18 Stop Date: 03/29/18 Status: Discontinuedglucagon 1 mg, Route: IM, Drug form: PDR/INJ, PRN, Dosing Weight 137.727, kg, PRN Blood Glucose Results, Start date: 03/26/18 12:50:00 QUANTITATIVE CONSULTANT, Duration: 30 day, Stop date : 04/25/18 12:49:00 QUANTITATIVE CONSULTANT Start Date: 03/26/18 Stop Date: 03/29/18 Status: Discontinuedinsulin lispro 3 unit, 0.03 mL, Route: SUB-Q, Drug form: SOLN, TID-Before Meals, Dosing Weight 137.727, kg, PRN Blood Glucose Results, Start date: 03/26/18 12:50:00 QUANTITATIVE CONSULTANT, Duration: 30 day, Stop date: 04/25/18 12:49:00CST Notes: (Same as: Humalog ) Roll in palms of hands gently; Do not shake ` vigorously. "Single PatientUse Only " WASTE: F/P - Black; E - Municipal Trash Bin Stable for 28 days at room temperature.Expires in days from Date Start Date: 03/26/18 Stop Date: 03/29/18 Status: Discontinuedinsulin lispro 4 unit, 0.04 mL, Route: SUB-Q, Drug form: SOLN, TID-Before Meals, Dosing Weight 137.727, kg, PRN Blood Glucose Results, Start date: 03/26/18 12:50:00 QUANTITATIVE CONSULTANT, Duration: 30 day, Stop date: 04/25/18 12:49:00CST Notes: (Same as: Humalog ) Roll in palms of hands gently; Do not shake ` vigorously. "Single PatientUse Only " WASTE: F/P - Black; E - Municipal Trash Bin Stable for 28 days at room temperature.Expires in days from Date Start Date: 03/26/18 Stop Date: 03/29/18 Status: Discontinuedinsulin lispro 5 unit, 0.05 mL, Route: SUB-Q, Drug form: SOLN, TID-Before Meals, Dosing Weight 137.727, kg, PRN Blood Glucose Results, Start date: 03/26/18 12:50:00 QUANTITATIVE CONSULTANT, Duration: 30 day, Stop date: 04/25/18 12:49:00CST Notes: (Same as: Humalog ) Roll in palms of hands gently; Do not shake ` vigorously. "Single PatientUse Only " WASTE: F/P - Black; E - Municipal Trash Bin Stable for 28 days at room temperature.Expires in days from Date Start Date: 03/26/18 Stop Date: 03/29/18 Status: Discontinuedinsulin lispro 2 unit, 0.02 mL, Route: SUB-Q, Drug form: SOLN, TID-Before Meals, Dosing Weight 137.727, kg, PRN Blood Glucose Results, Start date: 03/26/18 12:50:00 QUANTITATIVE CONSULTANT, Duration: 30 day, Stop date: 04/25/18 12:49:00CST Notes: (Same as: Humalog ) Roll in palms of hands gently; Do not shake ` vigorously. "Single PatientUse Only " WASTE: F/P - Black; E - Municipal Trash Bin Stable for 28 days at room temperature.Expires in days from Date Start Date: 03/26/18 Stop Date: 03/29/18 Status: Discontinuedinsulin lispro 1 unit, 0.01 mL, Route: SUB-Q, Drug form: SOLN, TID-Before Meals, Dosing Weight 137.727, kg, PRN Blood Glucose Results, Start date: 03/26/18 12:50:00 QUANTITATIVE CONSULTANT, Duration: 30 day, Stop date: 04/25/18 12:49:00CST Notes: (Same as: Humalog ) Roll in palms of hands gently; Do not shake ` vigorously. "Single PatientUse Only " WASTE: F/P - Black; E - Municipal Trash Bin Stable for 28 days at room temperature.Expires in days from Date Start Date: 03/26/18 Stop Date: 03/29/18 Status: Discontinuedlosartan 100 mg, PO, Daily, 0 Refill(s) Start Date: 03/25/18 Stop Date: 03/29/18 Status: Discontinuedlosartan 100 mg, 2 tab, Route: PO, Drug form: TAB, Daily, Dosing Weight 137.727, kg, Start date: 03/26/18 9:00:00 QUANTITATIVE CONSULTANT, Duration: 30 day, Stop date: 04/24/18 9:00:00 QUANTITATIVE CONSULTANT Notes: (Same as: Cozaar) Start Date: 03/26/18 Stop Date: 03/27/18 Status: DiscontinuedLovenox 40 mg, 0.4 mL, Route: SUB-Q, Drug form: INJ, Q12H, Dosing Weight 137.727, kg, Start date: 03/25/18 21:00:00 QUANTITATIVE CONSULTANT, Duration: 30 day, Stop date: 04/24/18 9:00: 00 QUANTITATIVE CONSULTANT Notes: (Same as: Lovenox) Start Date: 03/25/18 Stop Date: 03/26/18 Status: Discontinuedmetoprolol tartrate 50 mg, 1 tab, Route: PO, Drug form: TAB, TID, Dosing Weight 137.727, kg, Priority: NOW, Start date: 03/27/18 14:25:00 QUANTITATIVE CONSULTANT, Duration: 30 day, Stop date: 04/26/18 13:00:00 QUANTITATIVE CONSULTANT Notes: (Same as: Lopressor) Start Date: 03/27/18 Stop Date: 03/27/18 Status: Discontinuedmetoprolol tartrate 25 mg, 1 tab, Route: PO, Drug form: TAB, Q12H, Dosing Weight 137.727, kg, Start date: 03/27/18 21:00:00 QUANTITATIVE CONSULTANT, Duration: 30 day, Stop date: 04/26/18 9:00:00 QUANTITATIVE CONSULTANT Notes: (Same as: Lopressor) Start Date: 03/27/18 Stop Date: 03/29/18 Status: Discontinuedmetoprolol tartrate 25 mg oral tablet 25 mg=1 tab, PO, Q12H, 0 Refill(s) Start Date: 03/29/18 Status: Orderedmidazolam 2 mg, Route: IV, ONCE, Dosing Weight 137.727, kg, Start date: 03/28/18 14:12:00 QUANTITATIVE CONSULTANT, Stop date: 03/28/18 14:12:00 QUANTITATIVE CONSULTANT Start Date: 03/28/18 Stop Date: 03/28/18 Status: CompletedpredniSONE See Instructions, 4 TABS DAILY FOR 4 DAYS SINCE WEDNESDAY,THEN 3 TABS DAILY FOR 4 DAYS,2 TABS DAILY FOR 4 DAYS,THEN 1 TAB DAILY FOR 4 DAYS, 0 Refill(s) Start Date: 03/25/18 Stop Date: 03/29/18 Status: DiscontinuedpredniSONE Route: PO, Daily, Dosing Weight 137.727, kg, Start date: 03/26/18 9:00:00 QUANTITATIVE CONSULTANT, Duration: 30 day, Stop date: 04/24/18 9:00:00 QUANTITATIVE CONSULTANT Start Date: 03/26/18 Stop Date: 03/26/18 Status: DiscontinuedSenokot 8.6 mg, 1 tab, Route: PO, Drug form: TAB, BID, Start date: 03/26/18 9:00:00 QUANTITATIVE CONSULTANT , Duration: 30 day, Stop date: 04/24/18 17:00:00 QUANTITATIVE CONSULTANT Notes: (Same as: Senokot) Start Date: 03/26/18 Stop Date: 03/29/18 Status: DiscontinuedSenokot S 1 tab, Route: PO, Dosing Weight 137.727, kg, BID, Start date: 03/25/18 17:00:00 QUANTITATIVE CONSULTANT, Duration: 30 day, Stop date: 04/24/18 9:00:00 QUANTITATIVE CONSULTANT Start Date: 03/25/18 Stop Date: 03/25/18 Status: Deletedwarfarin See Instructions, 1 mg PO EVERY OTHER DAY, 0 Refill(s) Start Date: 03/25/18 Stop Date: 03/29/18 Status: Discontinuedwarfarin 2.5 mg, 1 tab, Route: PO, Drug form: TAB, Q5PM, Dosing Weight 137.727, kg, Start date: 03/26/18 17:00:00 QUANTITATIVE CONSULTANT, Duration: 30 day, Stop date: 04/24/18 17:00: 00 QUANTITATIVE CONSULTANT Notes: Nurse to ensure documentation of patient education per anticoagulation policy.Avoid large intake of vitamin-K containing foods diet.(Same As: Coumadin) WASTE: F/P - P Waste Black; E - P Waste Black Start Date: 03/26/18 Stop Date: 03/26/18 Status: Canceledwarfarin 1 mg, 1 tab, Route: PO, Drug form: TAB, Every Other Day, Dosing Weight 137.727, kg, Start date: 03/27/18 17:00:00 QUANTITATIVE CONSULTANT, Duration: 30 day, Stop date: 04/24/18 17: 00:00 QUANTITATIVE CONSULTANT Notes: Nurse to ensure documentation of patient education per anticoagulation policy.Avoid large intake of vitamin-K containing foods diet.(Same As: Coumadin) WASTE: F/P - P Waste Black; E - P Waste Black Start Date: 03/27/18 Stop Date: 03/26/18 Status: Canceledwarfarin 2.5 mg oral tablet 2.5 mg=1 tab, PO, Daily, 0 Refill(s) Start Date: 03/25/18 Stop Date: 03/29/18 Status: Discontinued Results Most recent to oldest 1 2 3 [Reference Range]: Neutrophils # [1.5-8.1 3.5 K/CMM K/CMM] (03/26/18 4:02 AM) Lymphocytes # [1.0-5.5 1.4 K/CMM K/CMM] (03/26/18 4:02 AM) Monocytes # [0.0-0.8 0.3 K/CMM K/CMM] (03/26/18 4:02 AM) Eosinophils # [0.0-0.5 0.1 K/CMM K/CMM] (03/26/18 4:02 AM) Test Name global fish, mm enriched *Unknown* (03/29/18 4:50 PM) BNP [<=100 pg/mL] 171 pg/mL 258 pg/mL *HI* *HI* (03/27/18 4:11 AM) (03/26/18 4:02 AM) eGFR 42 mL/min/1.73m2 1 46 mL/min/1.73m2 2 40 mL/min/1.73m2 3 *NA* *NA* *NA* (03/29/18 3:29 AM) (03/27/18 4:11 AM) (03/26/18 4:02 AM) AGAP [10.0-20.0 mEq/L] 10.6 mEq/L 10.7 mEq/L 9.5 mEq/L (03/29/18 3:29 AM) (03/27/18 4:11 AM) *LOW* (03/26/18 4:02 AM) H-6-Esrcychhi [1.0-2.3 3.5 mg/L mg/L] *HI* (03/27/18 4:16 PM) Basophils [0.0-1.0 %] 0.2 % (03/26/18 4:02 AM) BUN [7-22 mg/dL] 20 mg/dL 22 mg/dL 25 mg/dL (03/29/18 3:29 AM) (03/27/18 4:11 AM) *HI* (03/26/18 4:02 AM) Calcium Lvl [8.5-10.5 7.9 mg/dL 7.5 mg/dL 7.6 mg/dL mg/dL] *LOW* *LOW* *LOW* (03/29/18 3:29 AM) (03/27/18 4:11 AM) (03/26/18 4:02 AM) CHD Risk [4.00-7.30] 1.69 *LOW* (03/29/18 3:29 AM) Chol [<=199 mg/dL] 71 mg/dL (03/29/18 3:29 AM) Chloride Lvl [95-109 109 mEq/L 108 mEq/L 105 mEq/L mEq/L] (03/29/18 3:29 AM) (03/27/18 4:11 AM) (03/26/18 4:02 AM) CO2 [24-32 mEq/L] 26 mEq/L 26 mEq/L 29 mEq/L (03/29/18 3:29 AM) (03/27/18 4:11 AM) (03/26/18 4:02 AM) Creatinine Lvl 1.70 mg/dL 1.60 mg/dL 1.80 mg/dL [0.50-1.40 mg/dL] *HI* *HI* *HI* (03/29/18 3:29 AM) (03/27/18 4:11 AM) (03/26/18 4:02 AM) Eosinophils [0.0-4.0 %] 1.4 % (03/26/18 4:02 AM) Glucose Lvl [70-99 103 mg/dL 87 mg/dL 103 mg/dL mg/dL] *HI* (03/27/18 4:11 AM) *HI* (03/29/18 3:29 AM) (03/26/18 4:02 AM) Hct [42.0-54.0 %] 35.6 % 35.0 % *LOW* *LOW* (03/29/18 12:17 PM) (03/26/18 4:02 AM) HDL [>=61 mg/dL] 42 mg/dL *LOW* (03/29/18 3:29 AM) Hgb [14.0-18.0 g/dL] 11.5 g/dL 11.6 g/dL *LOW* *LOW* (03/29/18 12:17 PM) (03/26/18 4:02 AM) IgA Lvl [68.0-378.0 62.0 mg/dL mg/dL] *LOW* (03/28/18 4:42 AM) IgG Lvl [694-1618 2010 mg/dL mg/dL] *HI* (03/28/18 4:42 AM) IgM Lvl [60.0-263.0 30.0 mg/dL mg/dL] *LOW* (03/28/18 4:42 AM) INR [0.85-1.17] 1.45 2.09 2.48 *HI* *HI* *HI* (03/29/18 3:29 AM) (03/27/18 4:11 AM) (03/26/18 4:02 AM) Potassium Lvl [3.5-5.1 3.6 mEq/L 3.7 mEq/L 3.5 mEq/L mEq/L] (03/29/18 3:29 AM) (03/27/18 4:11 AM) (03/26/18 4:02 AM) LDL (Calculated) [<=99 16 mg/dL mg/dL] (03/29/18 3:29 AM) Lymphocytes [20.0-40.0 27.1 % %] (03/26/18 4:02 AM) MCH [27.0-31.0 pg] 30.1 pg 30.6 pg (03/29/18 12:17 PM) (03/26/18 4:02 AM) MCHC [32.0-36.0 g/dL] 32.4 g/dL 33.3 g/dL (03/29/18 12:17 PM) (03/26/18 4:02 AM) MCV [80.0-94.0 fL] 92.8 fL 91.8 fL (03/29/18 12:17 PM) (03/26/18 4:02 AM) Misc Lab See Comment 4 *NA* (03/29/18 4:50 PM) Monocytes [2.0-12.0 %] 5.2 % (03/26/18 4:02 AM) MPV [7.4-10.4 fL] 9.8 fL 9.0 fL (03/29/18 12:17 PM) (03/26/18 4:02 AM) Sodium Lvl [135-145 142 mEq/L 141 mEq/L 140 mEq/L mEq/L] (03/29/18 3:29 AM) (03/27/18 4:11 AM) (03/26/18 4:02 AM) Occult Bld Stl Positive [Negative] *ABN* (03/26/18 8:47 AM) Platelet [133-450 113 K/CMM 88 K/CMM K/CMM] *LOW* *LOW* (03/29/18 12:17 PM) (03/26/18 4:02 AM) Segs [45.0-75.0 %] 66.1 % (03/26/18 4:02 AM) PT [12.0-14.7 seconds] 17.7 seconds 23.7 seconds 27.1 seconds *HI* *HI* *HI* (03/29/18 3:29 AM) (03/27/18 4:11 AM) (03/26/18 4:02 AM) RBC [4.70-6.10 M/CMM] 3.84 M/CMM 3.81 M/CMM *LOW* *LOW* (03/29/18 12:17 PM) (03/26/18 4:02 AM) RDW [11.5-14.5 %] 18.2 % 17.5 % *HI* *HI* (03/29/18 12:17 PM) (03/26/18 4:02 AM) Retic Auto [0.5-1.5 %] 1.7 % *HI* (03/26/18 4:02 AM) SPE Interp Total protein is within reference range; albumin is decreased. A monoclonal protein (1.79 g/dl) is present in the gamma globulin region. Serum and urine immunofixation studies are recommended for further evaluation. Interpretation performed at [facility]. *NA* (03/27/18 4:16 PM) Alpha 1 Glob [0.18-0.41 0.32 g/dL g/dL] (03/27/18 4:16 PM) Alpha 2 Glob [0.45-1.00 0.78 g/dL g/dL] (03/27/18 4:16 PM) Albumin % [55.8-66.1 46.4 REL % REL %] *LOW* (03/27/18 4:16 PM) Albumin (SPE) 3.25 g/dL [3.57-5.55 g/dL] *LOW* (03/27/18 4:16 PM) Alpha 1 % [2.8-4.9 REL 4.6 REL % %] (03/27/18 4:16 PM) Alpha 2 % [7.0-11.9 REL 11.2 REL % %] (03/27/18 4:16 PM) Beta % [7.8-13.7 REL %] 8.7 REL % (03/27/18 4:16 PM) Beta Glob [0.50-1.15 0.61 g/dL g/dL] (03/27/18 4:16 PM) Gamma Glob [0.71-1.57 2.04 g/dL g/dL] *HI* (03/27/18 4:16 PM) Gamma % [11.1-18.7 REL 29.1 REL % %] *HI* (03/27/18 4:16 PM) Tot Prot (SPE) [6.4-8.4 7.0 g/dL g/dL] (03/27/18 4:16 PM) Trig [<=149 mg/dL] 66 mg/dL (03/29/18 3:29 AM) Interp (UPE) Urine protein electrophoresis shows minimal proteinuria. No monoclonal bands are identified; however, evaluation is limited by the small amount of protein and the resulting lack of discernible bands on the electrophoretic gel. Interpretation performed at [facility]. *NA* (03/27/18 11:33 PM) Spec Type (UPE) random, 100x *NA* (03/27/18 11:33 PM) Tot Prot (UPE) 8 mg/dL *NA* (03/27/18 11:33 PM) WBC [3.7-10.4 K/CMM] 5.9 K/CMM 5.3 K/CMM (03/29/18 12:17 PM) (03/26/18 4:02 AM) [place]/Lambda Free Light 0.10 Ratio Chains Ratio [0.26-1.65 *LOW* Ratio] (03/27/18 4:16 PM) Lambda Free Light 130.44 mg/L Chains [5.70-26.30 *HI* mg/L] (03/27/18 4:16 PM) [place] Free Light Chains 13.69 mg/L [3.30-19.40 mg/L] (03/27/18 4:16 PM) VLDL 13 *NA* (03/29/18 3:29 AM) 1Result Comment: The eGFR is calculated [...] be multiplied by the estimated BMI.4Result Comment: Reference lab results scanned in [facility]. Results displayed in [id number] Documents ( Imaged) under date/time results were scanned. Report sent for scanning on 2017 16:14. Immunizations Given and Recorded Vaccine Date Status [...] days; entered on: 03/25/18 Assessment and Plan Extracted from: Title: Electrophysiology Author: Laquita Huynh NP [employer] Date: Progress Daily [facility] Completed: Mar, 08:47 by Laquita Huynh NP [employer] RM: 412 - 1P, E4A JAVIER BUNCH 82y (: 1935) M Attending: Kavita Morrison MD Service: Cardiology Reason for Admission: ATRIAL FIBRILLATION, CAD Working DRG: Code status: None Specified=FULL CODE Current diet: Isolation: No Isolation/Standard Precautions Allergies: NKFA, Plavix, sulfa drugs, Bactrim(hives) SUBJECTIVE Pt denies complaints OBJECTIVE Pt sitting in bed, no acute distress noted ASSESSMENT & EXAM Alert, oriented CV: IRRR, atrial fibrillation RESP: Shallow, CTA EXT: Trace edema PLAN & TREATMENT SSS: H/O PPM implant in 2014, continue to monitor. Atrial Fibrillation with RVR: Pt rate better controlled, continue amiodarone load. Needs anticoagulatio resumed when appropriate after bone marrow bx today. OK to initiate Eliquis 2.5 mg bid, follow-up in 1 month for planning of cardioversion. H/O DVT: Needs anticoagulation resumed, Eliquis 2.5 mg BID ok. Monoclonal Gammopathy: Heme following, pending bone marrow bx today. Eliquis 2.5 mg BID ok. HLD: Continue statin. H/O GIB: No current S/S. Continue to monitor. Ready for Discharge (Yes/No)? Yes, with Eliquis 2.5mg bid per primary cardiology, 1 month follow-up. 24hr Labs 03/29 0757 POC Performing Locatio See Note Glucose POC 104 H 03/29 0329 Glucose Lvl 103 H BUN 20 Creatinine Lvl 1.70 H Sodium Lvl 142 Potassium Lvl 3.6 Chloride Lvl 109 CO2 26 AGAP 10.6 Calcium Lvl 7.9 L eGFR 42 Chol 71 Trig 66 HDL 42 L LDL (Calculated) 16 VLDL 13 CHD Risk 1.69 L PT 17.7 H INR 1.45 H 03/28 2053 POC Performing Locatio See Note Glucose POC 117 H 03/28 1723 POC Performing Locatio See Note Glucose POC 136 H 03/28 1133 POC Performing Locatio See Note Glucose POC 117 H 03/27 2333 Tot Prot (UPE) 8 03/27 1616 [place] Free [place] Chain 13.69 [place] Free [place] Te[place] 130.44 H [place] Free [place] 0.10 L Albumin % 46.4 L Alpha 1 % 4.6 Alpha 2 % 11.2 Beta % 8.7 Gamma % 29.1 H Albumin (SPE) 3.25 L Alpha 1 Glob 0.32 Alpha 2 Glob 0.78 Beta Glob 0.61 Gamma Glob 2.04 H Tot Prot (SPE) 7.0 Vitals Tmp(F) Pulse BP RR SpO2 FIO2 03/29 07:52 98.4 82 156/85 18 --- --- 03/29 03:30 98.3 78 135/76 -- --- --- 03/29 00:00 98.4 84 130/70 20 --- --- 03/28 20:00 98.3 76 118/72 20 --- --- 03/28 19:53 ---- --- ----- 18 99 21% 24 Hr Tmax: 98.4F (36.89c) at 03/29 07:52 Vital Signs are the last 5 in the past 48 hours. Date Wt(kg) Wt(lb) Ht(cm) Ht(in) Method 03/29 138.09 303.81 Measured 03/25 (initial) 137.73 303.00 Estimated 03/25 193.04 76.00 Stated I&O Record In Out Bal 03/28 24hr Tot 720 600 120 03/27 24hr Tot 1450 2000 -550 Medications (19) Active Scheduled Meds (9): 03/28/18 AMIODarone 200 mg PO BID 03/25/18 albuterol-ipratropium (DuoNeb inhalation solution) 3 mL NEB RQ12H 03/26/18 allopurinol 100 mg PO Daily 03/26/18 aspirin (aspirin 81 mg tablet, enteric coated) 81 mg PO Daily 03/25/18 atorvastatin 40 mg PO Bedtime 03/26/18 docusate (docusate sodium 100 mg oral capsule) 100 mg PO BID 03/25/18 gabapentin (gabapentin 100 mg oral capsule) 200 mg PO BID 03/27/18 metoprolol (metoprolol tartrate) 25 mg PO Q12H 03/26/18 senna (Senokot) 8.6 mg PO BID Unscheduled Meds: None PRN Meds (8): 03/26/18 Dextrose 50% in Water IV (Dextrose 50% Syringe) 12.5 gm IVP PRN 03/26/18 Dextrose 50% in Water IV (Dextrose 50% Syringe) 25 gm IVP PRN 03/26/18 glucagon 1 mg IM PRN 03/26/18 insulin lispro 1 unit SUB-Q TID-Before Meals 03/26/18 insulin lispro 2 unit SUB-Q TID-Before Meals 03/26/18 insulin lispro 3 unit SUB-Q TID-Before Meals 03/26/18 insulin lispro 4 unit SUB-Q TID-Before Meals 03/26/18 insulin lispro 5 unit SUB-Q TID-Before Meals One Time Meds (2): 03/28/18 (Completed) fentaNYL 100 microgram IV ONCE 03/28/18 (Completed) midazolam 2 mg IV ONCE Continuous Infusions: None Extracted from: Title: Nephrology * Author: Gerry Pina MD Date: 03/27/18 Impression and Plan CKD3 Hypertensive heart and CKD3 Atrial fibrillation with RVR Chest pain Recs Renal function seems to be close to baseline Await cardiac work up and plans Avoid Nephrotoxins Thank you Dr Morrison for this consultation
--- OUTSIDE RECORDS SUMMARY | 2019-01-23 10:03 | XMS REPORT | Summary of Care ---
:1935 Author Organization [facility] Address [facility] [place], [place] [address]- Encounter HQ Alyson(FIN) [id number] Date(s): 11/29/18 - 12/01/[address] [address]- Encounter Diagnosis Illness, unspecified (Final) - Discharge Disposition: Home or Self Care Attending Physician: Cecy Wolf MD Admitting Physician: Cecy Wolf MD Vital Signs Most recent to oldest 1 2 3 [Reference Range]: Height 193.04 cm 193.04 cm (12/01/18 4:32 AM) (11/29/18 11:11 PM) Current Weight 148.318 kg (12/01/18 4:32 AM) Temperature Oral [96.4-99.1 98.5 DegF 98.1 DegF DegF] (12/01/18 3:24 PM) (12/01/18 11:14 AM) Blood Pressure [90-140/60-90 94/58 mmHg 107/66 mmHg 112/63 mmHg mmHg] (12/01/18 3:24 PM) (12/01/18 11:14 AM) (12/01/18 8:27 AM) Respiratory Rate [14-20 20 BRMIN 20 BRMIN 20 BRMIN BRMIN] (12/01/18 3:24 PM) (12/01/18 11:14 AM) (12/01/18 7:23 AM) Peripheral Pulse Rate [60-100 86 bpm 76 bpm 41 bpm bpm] (12/01/18 3:24 PM) (12/01/18 11:14 AM) *LOW* (12/01/18 7:23 AM) Weight 145.909 kg (11/29/18 11:11 PM) Body Mass Index 39.16 m2 (11/29/18 11:11 PM) Problem List Condition Effective Dates Status [...] [place] (myocardial Active infarction)(Confirmed) Monoclonal gammopathy(Confirmed)4 Active Morbid obesity(Confirmed) Active Pain(Confirmed) Active Pneumonia(Confirmed) Resolved Sleep apnea(Confirmed) Active 1pt states he is not a [id number] STATES HE IS NOT A [id number] platelets Allergies, Adverse Reactions, Alerts Substance Reaction Severity Status sulfa drugs Active Plavix Active Bactrim hives Severe Active NKFA Active Medications acetaminophen-hydrocodone 325 mg-10 mg oral tablet 1 tab, PO, Q6H, PRN Pain, 0 Refill(s) Start Date: 11/29/18 Status: Orderedallopurinol 100 mg, 1 tab, Route: PO, Drug form: TAB, Daily, Dosing Weight 145.909, kg, Start date: 12/01/18 9:00:00 CDT, Duration: 30 day, Stop date: 12/30/18 9:00:00 CDT, 0 Notes: (Same as: Zyloprim) Start Date: 12/01/18 Stop Date: 12/01/18 Status: DiscontinuedAMIODarone 200 mg, 1 tab, Route: PO, Drug form: TAB, BID, Dosing Weight 145.909, kg, Start date: 11/30/18 17:00:00 CDT, Duration: 30 day, Stop date: 12/30/18 9:00:00 CDT, 0 Notes: (Same as: Cordarone) Start Date: 11/30/18 Stop Date: 12/01/18 Status: Discontinuedaspirin 81 mg tablet, enteric coated 81 mg, 1 tab, Route: PO, Drug form: ECTAB, Daily, Dosing Weight 145.909, kg, Start date: 11/30/18 9:00:00 CDT, Duration: 30 day, Stop date: 12/29/18 9:00:00 CDT, 0 Notes: Do not crush or chew.(Same As: Ecotrin) Start Date: 11/30/18 Stop Date: 12/01/18 Status: Discontinuedatorvastatin 40 mg, 1 tab, Route: PO, Drug form: TAB, Daily, Dosing Weight 145.909, kg, Start date: 12/01/18 9:00:00 CDT, Duration: 30 day, Stop date: 12/30/18 9:00:00 CDT, 0 Notes: (Same as: Lipitor) Start Date: 12/01/18 Stop Date: 12/01/18 Status: Discontinuedatorvastatin 40 mg oral tablet 40 mg=1 tab, PO, Daily, 0 Refill(s) Start Date: 11/29/18 Status: Orderedcarvedilol 3.125 mg, 1 tab, Route: PO, Drug form: TAB, Q12H, Dosing Weight 145.909, kg, Start date: 11/30/18 9:00:00 CDT, Duration: 30 day, Stop date: 12/29/18 21:00: 00 CDT, 0 Notes: Give with food. (Same As: Coreg) Start Date: 11/30/18 Stop Date: 12/01/18 Status: Discontinuedcarvedilol 3.125 mg oral tablet 3.125 mg=1 tab, PO, Q12H, 0 Refill(s) Start Date: 12/01/18 Status: OrderedEliquis 2.5 mg, 1 tab, Route: PO, Drug form: TAB, BID, Dosing Weight 145.909, kg, Start date: 11/30/18 17:00:00 CDT, Duration: 30 day, Stop date: 12/30/18 9:00:00 CDT, 0 Notes: Same as: Eliquis Start Date: 11/30/18 Stop Date: 12/01/18 Status: DiscontinuedEliquis 2.5 mg oral tablet 2.5 mg, PO, BID, 0 Refill(s) Start Date: 11/29/18 Status: Orderedfurosemide 20 mg, 2 mL, Route: IVP, Drug form: INJ, Q12H, Dosing Weight 145.909, kg, Start date: 11/30/18 9:00:00 CDT, Duration: 30 day, Stop date: 12/29/18 21:00:00 CDT, 0 Notes: (Same as: Lasix) Start Date: 11/30/18 Stop Date: 12/01/18 Status: Discontinuedgabapentin 100 mg oral capsule 200 mg, 2 cap, Route: PO, Drug form: CAP, BID, Dosing Weight 145.909, kg, Start date: 11/30/18 17:00:00 CDT, Duration: 30 day, Stop date: 12/30/18 9:00:00 CDT, 0 Notes: (Same as: Neurontin) Start Date: 11/30/18 Stop Date: 12/01/18 Status: Discontinuedlosartan 100 mg oral tablet 100 mg=1 tab, PO, Daily, 0 Refill(s) Start Date: 11/29/18 Stop Date: 12/01/18 Status: DiscontinuedSaline Flush 0.9% 10 ml, Route: IVP, Drug Form: INJ, Dosing Weight 145.909, kg, Q12H, Start date: 11/30/18 9:00:00 CDT, Duration: 30 day, Stop date: 12/29/18 21:00:00 CDT, 0 Notes: Same as: BD Posiflush Sterile Start Date: 11/30/18 Stop Date: 12/01/18 Status: DiscontinuedSaline Flush 0.9% 10 ml, Route: IVP, Drug Form: INJ, Dosing Weight 145.909, kg, PRN, PRN Line Flush, Start date: 11/30/18 1:21:00 CDT, Duration: 30 day, Stop date: 12/30/18 1 :20:00 CDT, 0 Notes: Same as: BD Posiflush Sterile Start Date: 11/30/18 Stop Date: 12/01/18 Status: DiscontinuedTylenol with Codeine #3 oral tablet 1 tab, Route: PO, Drug Form: TAB, Dosing Weight 145.909, kg, Q4H, PRN Pain Score 1-3, Start date: 11/30/18 4:27:00 CDT, Duration: 30 day, Stop date: 4:26:00 CDT, 0 Notes: Do not exceed 4gm/day of acetaminophen. (Same as: Tylenol with Codeine # 3) Start Date: 11/30/18 Stop Date: 12/01/18 Status: Discontinued Results Most recent to oldest [Reference Range]: 1 2 Neutrophils # [1.5-8.1 K/CMM] 2.5 K/CMM 3.0 K/CMM (12/01/18 5:20 AM) (11/30/18 2:05 AM) Lymphocytes # [1.0-5.5 K/CMM] 1.3 K/CMM 1.5 K/CMM (12/01/18 5:20 AM) (11/30/18 2:05 AM) Monocytes # [0.0-0.8 K/CMM] 0.2 K/CMM 0.2 K/CMM (12/01/18 5:20 AM) (11/30/18 2:05 AM) Eosinophils # [0.0-0.5 K/CMM] 0.2 K/CMM 0.2 K/CMM (12/01/18 5:20 AM) (11/30/18 2:05 AM) Basophils # [0.0-0.2 K/CMM] 0.0 K/CMM (11/30/18 2:05 AM) BNP [<=100 pg/mL] 384 pg/mL *HI* (11/30/18 2:05 AM) eGFR 33 mL/min/1.73m2 1 35 mL/min/1.73m2 2 *NA* *NA* (12/01/18 5:20 AM) (11/30/18 2:05 AM) A/G Ratio [0.7-1.6] 0.7 (11/30/18 2:05 AM) Albumin Lvl [3.5-5.0 g/dL] 3.1 g/dL *LOW* (11/30/18 2:05 AM) Alk Phos [39-136 unit/L] 68 unit/L (11/30/18 2:05 AM) ALT [0-65 unit/L] 14 unit/L (11/30/18 2:05 AM) AGAP [10.0-20.0 mEq/L] 13.2 mEq/L 9.9 mEq/L (12/01/18 5:20 AM) *LOW* (11/30/18 2:05 AM) AST [0-37 unit/L] 13 unit/L (11/30/18 2:05 AM) B/C Ratio [6-25] 15 (11/30/18 2:05 AM) Basophils [0.0-1.0 %] 0.8 % 0.5 % (12/01/18 5:20 AM) (11/30/18 2:05 AM) BUN [7-22 mg/dL] 26 mg/dL 30 mg/dL *HI* *HI* (12/01/18 5:20 AM) (11/30/18 2:05 AM) Calcium Lvl [8.5-10.5 mg/dL] 8.3 mg/dL 8.2 mg/dL *LOW* *LOW* (12/01/18 5:20 AM) (11/30/18 2:05 AM) CHD Risk [4.00-7.30] 1.75 *LOW* (11/30/18 2:05 AM) Chol [<=199 mg/dL] 89 mg/dL (11/30/18 2:05 AM) Chloride Lvl [95-109 mEq/L] 104 mEq/L 105 mEq/L (12/01/18 5:20 AM) (11/30/18 2:05 AM) CO2 [24-32 mEq/L] 29 mEq/L 27 mEq/L (12/01/18 5:20 AM) (11/30/18 2:05 AM) Creatinine Lvl [0.50-1.40 mg/dL] 2.10 mg/dL 2.00 mg/dL *HI* *HI* (12/01/18 5:20 AM) (11/30/18 2:05 AM) Eosinophils [0.0-4.0 %] 4.6 % 4.4 % *HI* *HI* (12/01/18 5:20 AM) (11/30/18 2:05 AM) Globulin [2.7-4.2 g/dL] 4.7 g/dL *HI* (11/30/18 2:05 AM) Glucose Lvl [70-99 mg/dL] 104 mg/dL 106 mg/dL *HI* *HI* (12/01/18 5:20 AM) (11/30/18 2:05 AM) Hct [42.0-54.0 %] 33.4 % 33.1 % *LOW* *LOW* (12/01/18 5:20 AM) (11/30/18 2:05 AM) HDL [>=61 mg/dL] 51 mg/dL *LOW* (11/30/18 2:05 AM) Hgb [14.0-18.0 g/dL] 10.8 g/dL 10.6 g/dL *LOW* *LOW* (12/01/18 5:20 AM) (11/30/18 2:05 AM) Hgb A1C [<=5.6 %] 6.8 % *HI* (11/30/18 2:05 AM) Potassium Lvl [3.5-5.1 mEq/L] 4.2 mEq/L 3.9 mEq/L (12/01/18 5:20 AM) (11/30/18 2:05 AM) LDL (Calculated) [<=99 mg/dL] 24 mg/dL (11/30/18 2:05 AM) Lymphocytes [20.0-40.0 %] 31.1 % 29.5 % (12/01/18 5:20 AM) (11/30/18 2:05 AM) MCH [27.0-31.0 pg] 30.5 pg 30.7 pg (12/01/18 5:20 AM) (11/30/18 2:05 AM) MCHC [32.0-36.0 g/dL] 32.3 g/dL 32.1 g/dL (12/01/18 5:20 AM) (11/30/18 2:05 AM) MCV [80.0-94.0 fL] 94.2 fL 95.7 fL *HI* *HI* (12/01/18 5:20 AM) (11/30/18 2:05 AM) Magnesium Lvl [1.8-2.4 mg/dL] 2.0 mg/dL (11/30/18 2:05 AM) Monocytes [2.0-12.0 %] 4.9 % 4.3 % (12/01/18 5:20 AM) (11/30/18 2:05 AM) MPV [7.4-10.4 fL] 8.3 fL 8.2 fL (12/01/18 5:20 AM) (11/30/18 2:05 AM) Sodium Lvl [135-145 mEq/L] 142 mEq/L 138 mEq/L (12/01/18 5:20 AM) (11/30/18 2:05 AM) Phosphorus [2.5-4.5 mg/dL] 2.5 mg/dL (11/30/18 2:05 AM) Platelet [133-450 K/CMM] 77 K/CMM 91 K/CMM *LOW* *LOW* (12/01/18 5:20 AM) (11/30/18 2:05 AM) Segs [45.0-75.0 %] 58.6 % 61.3 % (12/01/18 5:20 AM) (11/30/18 2:05 AM) Total Protein [6.4-8.4 g/dL] 7.8 g/dL (11/30/18 2:05 AM) RBC [4.70-6.10 M/CMM] 3.54 M/CMM 3.46 M/CMM *LOW* *LOW* (12/01/18 5:20 AM) (11/30/18 2:05 AM) RDW [11.5-14.5 %] 16.8 % 17.8 % *HI* *HI* (12/01/18 5:20 AM) (11/30/18 2:05 AM) Bili Total [0.2-1.3 mg/dL] 0.6 mg/dL (11/30/18 2:05 AM) Trig [<=149 mg/dL] 71 mg/dL (11/30/18 2:05 AM) Troponin-I [0.00-0.40 ng/mL] 0.18 ng/mL 0.21 ng/mL (11/30/18 5:43 AM) (11/30/18 2:05 AM) WBC [3.7-10.4 K/CMM] 4.2 K/CMM 4.9 K/CMM (12/01/18 5:20 AM) (11/30/18 2:05 AM) VLDL 14 *NA* (11/30/18 2:05 AM) 1Result Comment: The eGFR is calculated [...] eGFR should be multiplied by the estimated BMI. Immunizations Given and Recorded Vaccine Date Status [...] ago, pack per three days; entered on: 11/29/18 Assessment and Plan Extracted from: Title: Progress Note * Author: Gerry Pina MD Date: 12/01/18 Impression and Plan CKD3 Multifactorial edema improved Possible diastolic CHF improved Anemia in CKD HTN Recs Renal function is largely stable Resp status is improved Follow up as OP for further renal work up D/w patient Extracted from: Title: History and Physical Author: Cecy Wolf MD Date: 11/30 83 yo with 1.Acute on chronic congestive heart failure(I50.9) Ordered: Admit/Condition, 11/30/18 4:27:00 CDT, Status: Inpatient, Acute, Expected LOS: 2 Midnights, Cecy Wolf MD, Admit MD Review/Approve Yes, Isolation: No Isolation/Standard Precautions, Acute on chronic congestive heart failure 2.Acute on chronic kidney failure(N17.9) 3.AF - Atrial fibrillation(I48.91) 4.HTN - Hypertension(I10) 5.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 Monitor patient on telemetry. 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 Patientappears comfortableduring exam. Will monitorvital sig ns closely. Insulin forglucose control. Discussed with patient plan of care and currently agrees. 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 Patient with history of thrombocytopenia. Will monitor for stability. on Eliquis inpatient
--- OUTSIDE RECORDS SUMMARY | 2019-01-23 10:04 | XMS REPORT | Continuity of Care Document ---
:1935 Author Organization [facility] Address [address] [place] [address] Phone Unavailable Care Team Providers Name Role Phone JENNYFER RICO LIGHT RAIL SIGNAL TECHNICIAN Primary Care Physician Insurance Providers Guarantor Tomas Suárez Address [address] [place] [address] Email NONE Payer [facility] Policy Number [id number] Subscriber's Name Tomas Suárez Relationship Self / Same As Patient Group Number [id number] Group Name NA Advance Directives Directive Response Recorded Date/Time Advance Directives No 09/17/15 1:23pm Advance Directive on File No 02/27/18 12:42pm Directive to Physicians/Living Will No 09/17/15 1:23pm Health Care Proxy No 09/17/15 1:23pm Name of Surrogate/Decision Maker NA 02/27/18 12:29pm Organ Donor No 09/17/15 1:23pm Medical Power of Retail Performance Specialist No 09/17/15 1:23pm Patient/Family Given Education Material R/T Y - VV...02/27/18 02/27/18 12: 42pm Directives? Problems Medical Problem Onset Date Status A-fib Unknown Chronic ARF (acute renal failure) Unknown Acute Acute gouty arthritis Unknown Acute Acute right hip pain Unknown Acute Anxiety Unknown Acute Arrhythmia Unknown Acute Arthritic-like pain Unknown Acute Asbestos exposure Unknown Chronic Asbestosis Unknown Chronic Atrial fibrillation with tachycardic ventricular rate Unknown Acute Atrial fibrillation with tachycardic ventricular rate Unknown Acute Atypical chest pain Unknown Acute CHF (congestive heart failure) Unknown Chronic CKD (chronic kidney disease) Unknown Chronic CVA (cerebral vascular accident) Unknown Acute Chest pain Unknown Acute Chronic back pain Unknown Acute Chronic renal disease Unknown Chronic Elevated troponin Unknown Acute Flank pain, acute Unknown Acute Gouty arthritis Unknown Acute Gouty arthritis Unknown Acute HLD (hyperlipidemia) Unknown Chronic HTN (hypertension) Unknown Chronic Hypotension Unknown Left shoulder pain Unknown Acute Near syncope ~03/06/2017 Acute TIA (transient ischemic attack) Unknown Acute Tachycardia Unknown Acute UTI (urinary tract infection) Unknown Acute Ventricular pacing seen on electrocardiogram Unknown Acute Past Problems Medical Problem Onset Date Status Acute rhinosinusitis Unknown Acute Altered mental state Unknown Acute Anticoagulation adequate with anticoagulant therapy Unknown Acute Arm bruise Unknown Acute CHF NYHA class I (no symptoms from ordinary activities) Unknown Acute Cholelithiasis Unknown Acute DVT (deep venous thrombosis) Unknown Acute Hx pulmonary embolism Unknown Acute Peripheral edema Unknown Acute Pulmonary congestion Unknown Acute Renal insufficiency Unknown Acute Right-sided chest wall pain Unknown Acute Stage II pressure ulcer of sacral region Unknown Acute Superficial bruising of abdominal wall Unknown Acute Syncope Unknown Acute Urinary tract infection with pyuria Unknown Acute Medications Current Home Medications Medication Dose Units Route Directions Days Qty Instructions Start Date Albuterol/Ipratro 1 Puff ORAL Four Times pium (Combivent Daily Respimat *) 1 Ea Inh Allopurinol 1 Tab ORAL Daily 30 Tablet (Zyloprim *) 100 Mg Tab Aspirin (Aspirin 81 Mg ORAL Daily *) 81 Mg Chw Atorvastatin * 1 Tab ORAL Daily 30 Tablet (Lipitor 40 Mg*) 40 Mg Tab Carvedilol (Coreg 1 Tab ORAL Twice A Day 60 Tablet *) 25 Mg Tab Colchicine 1 Tab ORAL Twice A Day as 30 Tablet (Colcrys) 0.6 Mg needed for Tab Gout Pain Docusate Sodium 50 Mg ORAL Twice A Day (Stool Softener 100 Mg *) 100 Mg Cap Furosemide (Lasix 20 Mg ORAL Twice A Day 60 Tablet 03/10/17 20 Mg*) 20 Mg Tab for Chf Gabapentin 200 Mg ORAL Twice A Day (Gabapentin 100 Mg (Neurontin) *) 100 Mg Cap Hydrocodone-Aceta 1 Tab ORAL Every 8 Hours minophen 10/325MG As Needed as * ([place] 10/325MG needed for *) 1 Tab Tab Pain Losartan 1 Tab ORAL Daily 30 Tablet Potassium (Cozaar 100 Mg *) 100 Mg Tab Warfarin * 1 Mg ORAL Every Other ([place]antoven 1 Mg*) Day 1 Mg Tab Warfarin * 2.5 Mg ORAL Daily ([place] 2.5 Mg*) 2.5 Mg Tab Past Home Medications Medication Directions Ordered Status Allopurinol (Zyloprim *) 100 Mg Tab, Once Daily Discontinued 100 Mg Oral Alprazolam (Xanax 0.5 Mg*) 0.5 Mg Tab, Bedtime Discontinued 1 Tab Oral Amiodarone Hcl (Cordorone *) 200 Mg Daily Discontinued Tab, 200 Mg Oral Amlodipine Besylate (Amlodipine Daily Discontinued Besylate *) 10 Mg Tab, 1 Tab Oral Amoxicillin & Pot Clavulanate * Twice A Day Discontinued (Augmentin *) 875 Mg Tab, 1 Tab Oral Apixaban * (Eliquis *) 5 Mg Tab, 2.5 Mg Twice A Day for Afib 03/10/17 Discontinued Oral Aspirin 325 Mg Tab, 325 Mg Oral Every 24 Hours 07/07/15 Discontinued Carvedilol (Coreg *) 6.25 Mg Tab, 1 Tab Twice A Day for Chf 03/10/17 Discontinued Oral Carvedilol (Coreg *) 25 Mg Tab, 1 Tab Twice A Day Discontinued Oral Carvedilol (Coreg *) 12.5 Mg Tab, 12.5 Twice A Day Discontinued Mg Oral Colchicine (Colcrys) 0.6 Mg Tab, 1 Tab Daily Discontinued Oral Furosemide (Lasix 40 Mg*) 40 Mg Tab, 40 Twice A Day Discontinued Mg Oral Gabapentin (Gabapentin 300 Mg Once Daily At Bedtime Discontinued (Neurontin) *) 300 Mg Cap, 300 Mg Oral Hydralazine Hcl (Apresoline *) 50 Mg Three Times A Day Discontinued Tab, 50 Mg Oral Hydralazine Hcl (Apresoline *) 50 Mg Three Times A Day Discontinued Tab, 1 Tab Oral Hydroco/Apap 10/325 , 1 Tab Oral Every 8 Hours As Needed Discontinued Losartan Potassium (Cozaar *) 100 Mg Daily Discontinued Tab, 1 Tab Oral Pantoprazole * (Protonix Ec 40 Mg*) 40 Daily Discontinued Mg Tab, 40 Mg Oral Pregabalin (Lyrica 50 Mg *) 50 Mg Cap, Daily for Neuropathy 03/10/17 Discontinued 50 Mg Oral Pregabalin (Lyrica 200 Mg *) 200 Mg Twice A Day Discontinued Cap, 1 Cap Oral Pregabalin (Lyrica 50 Mg *) 50 Mg Cap, Daily Discontinued 50 Mg Oral Rivaroxaban (Xarelto *) 20 Mg Tab, 20 One Dose At 1700 07/07/15 Discontinued Mg Oral Sennosides (Senokot *) 8.6 Mg Tab, 1 Twice A Day Discontinued Tab Oral Tamsulosin Hcl (Tamsulosin Hcl 0.4 Mg Once Daily At Bedtime Discontinued (Flomax) *) 0.4 Mg Cap, 1 Cap Oral Social History Social History Problem Response Recorded Date/Time Onset Date Status Hx Substance Use Treatment No 07/05/2016 4:09pm Not Applicable Not Applicable Hx Alcohol Use No 07/05/2016 4:09pm Not Applicable Not Applicable Hx Physical Abuse No 02/27/2018 12:42pm Not Applicable Not Applicable Smoking Status Start Date Stop Date Former smoker Hospital Discharge Instructions No hospital discharge instruction information available. Plan of Care Discharge Date 02/27/18 1:50pm Forms Provided Portal Welcome Letter Prescriptions See Medication Section Referrals JENNYFER RCIO NP Address: [address] [place] [address] Functional Status No functional status information available. Allergies, Adverse Reactions, Alerts Allergen Type Severity Reaction Status Last Updated Sulfacetamide ([id number]) Allergy Severe Active 04/27/11 Sulfamethoxazole w/Trimethoprim Allergy Unknown DIZZINESS Active 07/06/16 ([id number]) Clopidogrel ([id number]) Allergy Unknown Active 07/04/15 Immunizations No immunization information available. Vital Signs Acute Vital Signs Vital Response Date/Time Blood Pressure 128/54 mm Hg 02/27/2018 1:51pm Pulse Pulse Rate (adult) 81 beats per minute (60 - 100) 02/27/2018 1:51pm Respiratory Rate 18 breaths per minute (10 - 24) 02/27/2018 1:51pm Temperature Source Oral 02/27/2018 1:51pm Height 6 ft 4 in 02/27/2018 12:42pm Weight 304 lb 02/27/2018 12:42pm Body Mass Index 37.0 kg/m^2 02/27/2018 12:42pm Results Laboratory Results Test Name Result Units Flags Reference Collection Result Comments Date/Time Date/Time Prothrombin Time 21.8 SECONDS H 10.3-12.3 01/12/2018 01/12/2018 3:06pm 3:19pm THERAPEUTIC LEVEL: 1.5 to 1.9 times normal range of PT Prothromb Time 2.04 01/12/2018 01/12/2018 International 3:06pm 3:19pm Recommended therapeutic range for patients receiving Ratio warfarin (coumadin) therapy: INR is 2.0 to 3.0 Recommended range for patients with mechanical prosthetic heart valves: INR is 2.5 to 3.5 White Blood Count 4.9 K/ul 4.0-12.3 02/27/2018 02/27/2018 1:23pm 1:27pm Red Blood Count 4.22 M/ul 3.80-5.80 02/27/2018 02/27/2018 1:23pm 1:27pm Hemoglobin 12.6 g/dl 11.67-17.2 02/27/2018 02/27/2018 2 1:23pm 1:27pm Hematocrit 40.4 % 35.0-51.0 02/27/2018 02/27/2018 1:23pm 1:27pm Mean Corpuscular 95.6 fl 78-96 02/27/2018 02/27/2018 Volume 1:23pm 1:27pm Mean Corpuscular 29.9 pg 26.8-33.4 02/27/2018 02/27/2018 Hemoglobin 1:23pm 1:27pm Mean Corpuscular 31.3 g/dl L 32.3-36.7 02/27/2018 02/27/2018 Hemoglobin Concent 1:23pm 1:27pm Red Cell 16.3 % H 11.6-15.4 02/27/2018 02/27/2018 Distribution Width 1:23pm 1:27pm Platelet Count 56 K/ul L 115-328 02/27/2018 02/27/2018 1:23pm 1:27pm Mean Platelet 8.9 fl 8.4-11.8 02/27/2018 02/27/2018 Volume 1:23pm 1:27pm Neutrophils (%) 61.5 % 44.7-82.4 02/27/2018 02/27/2018 (Auto) 1:23pm 1:27pm Lymphocytes (%) 30.9 % 10.0-50.0 02/27/2018 02/27/2018 (Auto) 1:23pm 1:27pm Monocytes (%) 4.1 % 3.9-13.4 02/27/2018 02/27/2018 (Auto) 1:23pm 1:27pm Eosinophils (%) 2.7 % 0.0-6.43 02/27/2018 02/27/2018 (Auto) 1:23pm 1:27pm Basophils (%) 0.8 % H 0.0-0.72 02/27/2018 02/27/2018 (Auto) 1:23pm 1:27pm Urine Color YELLOW 02/27/2018 02/27/2018 1:23pm 1:29pm Urine Appearance CLEAR CLEAR 02/27/2018 02/27/2018 1:23pm 1:29pm Urine Glucose NEGATIVE NEGATIVE 02/27/2018 02/27/2018 1:23pm 1:29pm Urine Bilirubin NEGATIVE NEGATIVE 02/27/2018 02/27/2018 1:23pm 1:29pm Urine Ketones NEGATIVE NEGATIVE 02/27/2018 02/27/2018 1:23pm 1:29pm Urine Specific 1.021 1.003-1.03 02/27/2018 02/27/2018 [place] 0 1:23pm 1:29pm Urine Blood TRACE H NEGATIVE 02/27/2018 02/27/2018 1:23pm 1:29pm Urine pH 7.500 5-9 02/27/2018 02/27/2018 1:23pm 1:29pm Urine Protein TRACE NEGATIVE 02/27/2018 02/27/2018 1:23pm 1:29pm Urine Urobilinogen NORMAL mg/dL 0.2-1.0 02/27/2018 02/27/2018 1:23pm 1:29pm Urine Nitrate NEGATIVE NEGATIVE 02/27/2018 02/27/2018 1:23pm 1:29pm Urine Leukocyte NEGATIVE NEGATIVE 02/27/2018 02/27/2018 Esterase 1:23pm 1:29pm Urine RBC 6-10 /hpf H 0-5 02/27/2018 02/27/2018 1:23pm 1:31pm Urine WBC <1 /hpf 0-5 02/27/2018 02/27/2018 1:23pm 1:31pm Urine Epithelial 1-5 /hpf 0-5 02/27/2018 02/27/2018 Cells 1:23pm 1:31pm Urine Bacteria None /hpf None 02/27/2018 02/27/2018 Detected Detect 1:23pm 1:31pm Urine Casts None /lpf None 02/27/2018 02/27/2018 Detected Detect 1:23pm 1:31pm Urine Culture NO 02/27/2018 02/27/2018 Reflexed 1:23pm 1:31pm Random Glucose 98 mg/dL 82-115 02/27/2018 02/27/2018 1:23pm 1:52pm Blood Urea 22 mg/dL 802/27/2018 02/27/2018 Nitrogen 1:23pm 1:52pm Serum Osmolality 279 L 280-300 02/27/2018 02/27/2018 1:23pm 1:52pm Creatinine 1.9 mg/dL H 0.70-1.20 02/27/2018 02/27/2018 1:23pm 1:52pm Glomerular 41.27 L 02/27/2018 02/27/2018 GFR RESULTS ARE REPORTED IN mL/min/1.73m2. Filtration Rate 1:23pm 1:52pm Calc Normal GFR: >60mL/min Moderately decreased GFR: 30-59 mL/min Severely decreased GFR: 15-29 mL/min Kidney Failure (or Dialysis): <15 mL/min The calculated eGFR is not valid for patients younger than 18 years or older than 75 years. BUN/Creatinine 11.6 L 04-2802/27/2018 02/27/2018 Ratio 1:23pm 1:52pm Sodium Level 138 mmol/L 135-145 02/27/2018 02/27/2018 1:23pm 1:52pm Potassium Level 4.2 mmol/L 3.5-5.2 02/27/2018 02/27/2018 1:23pm 1:52pm Chloride Level 99 mmol/L 98-108 02/27/2018 02/27/2018 1:23pm 1:52pm Carbon Dioxide 29 mmol/L 21-32 02/27/2018 02/27/2018 Level 1:23pm 1:52pm Anion Gap 14.2 mEq/L 04-2802/27/2018 02/27/2018 1:23pm 1:52pm Calcium Level 8.9 mg/dL 8.8-10.2 02/27/2018 02/27/2018 1:23pm 1:52pm Total Protein 8.7 g/dL 6.6-8.7 02/27/2018 02/27/2018 1:23pm 1:52pm Albumin 4.1 g/dL 3.5-5.2 02/27/2018 02/27/2018 1:23pm 1:52pm Globulin 4.6 gm/dL 02/27/2018 02/27/2018 1:23pm 1:52pm Albumin/Globulin 0.9 >1.0 02/27/2018 02/27/2018 Ratio 1:23pm 1:52pm Total Bilirubin 0.8 mg/dL 0.0-1.2 02/27/2018 02/27/2018 1:23pm 1:52pm Aspartate Amino 15 U/L 15-40 02/27/2018 02/27/2018 Transf (AST/SGOT) 1:23pm 1:52pm Alanine 10 U/L 0-41 02/27/2018 02/27/2018 Aminotransferase 1:23pm 1:52pm (ALT/SGPT) Amylase Level 127 U/L H 28-100 02/27/2018 02/27/2018 1:23pm 1:52pm Lipase 21 U/L 13-60 02/27/2018 02/27/2018 1:23pm 1:52pm Total Alkaline 79 U/L 40-130 02/27/2018 02/27/2018 Phosphatase 1:23pm 1:52pm Procedures Procedure Status Date Provider(s) US EXAM ABDO BACK WALL GARCIA Completed 01/12/18 PROTHROMBIN TIME Completed 01/12/18 ROUTINE VENIPUNCTURE Completed 01/12/18 CT ABDOMEN W/O & W/DYE Completed 02/08/18 ASSAY OF CREATININE Completed 02/08/18 ROUTINE VENIPUNCTURE Completed 02/08/18 US renal Completed 01/12/18 JENNYFER RICO LIGHT RAIL SIGNAL TECHNICIAN CT abdomen without then with contrast Completed 02/08/18 JENNYFER RICO NP Encounters Encounter Location Arrival/Admit Date Discharge/Depart Date Attending Provider Departed [place] 02/27/18 12:28pm 02/27/18 1:50pm [facility] Emergency Room [facility] Registered [place] 02/08/18 8:45am JENNYFER RICO [facility] Registered [place] 01/12/18 2:22pm JENNYFER RICO [facility]
--- OUTSIDE RECORDS SUMMARY | 2019-01-23 10:04 | XMS REPORT | Continuity of Care Document ---
:1935 Author Organization [facility] Address [address] [place] [address] Phone Unavailable Care Team Providers Name Role Phone JENNYFER RICO NP Primary Care Physician Insurance Providers Guarantor Tomas Bunch Address [address] [place] [address] Email NONE Payer [facility] Policy Number [id number] Subscriber's Name Tomas Bunch Relationship Self / Same As Patient Group Number [id number] Group Name NA Advance Directives Directive Response Recorded Date/Time Advance Directives No 09/17/15 1:23pm Advance Directive on File No 03/24/18 4:33pm Directive to Physicians/Living Will No 09/17/15 1:23pm Health Care Proxy No 09/17/15 1:23pm Organ Donor No 09/17/15 1:23pm Medical Power of Engraver Picture No 09/17/15 1:23pm Patient/Family Given Education Material R/T Y - PB 03/24/18 03/24/18 4: 46pm Directives? Chief Complaint and Reason for Visit Chief Complaint General Complaint Reason for Visit HTN (hypertension) [id number] Problems Medical Problem Onset Date Status A-fib [...] Acute DVT (deep venous thrombosis) Unknown Acute Hematuria Unknown Acute Hx pulmonary embolism Unknown Acute Muscle pain Unknown Acute Peripheral edema Unknown Acute Pulmonary congestion Unknown Acute Renal insufficiency Unknown Acute Right-sided chest wall pain Unknown Acute Stage II pressure ulcer of sacral region Unknown Acute Steroid side effects Unknown Acute Superficial bruising of abdominal wall [...] Hours minophen 10/325MG As Needed as * ([place] 10/325MG needed for *) 1 Tab Tab [...] Applicable Not Applicable Hx Physical Abuse No 03/24/2018 4:33pm Not Applicable Not Applicable Smoking Status Start Date Stop Date Former smoker Hospital Discharge Instructions No hospital discharge instruction information available. Plan of Care Discharge Date 03/24/18 5:31pm Instructions/Education Provided Hypertension Forms Provided Prescription Opioid Use Portal Welcome Letter Prescriptions See Medication Section Referrals JENNYFER RICO NP Address: [address] [place], [place] [address] Additional Instructions/Education FOLLOW UP WITH MD WHEN DONE WITH STEROIDS AND ANTIBIOTICS Functional Status No functional status information available. Allergies, Adverse Reactions, Alerts Allergen Type Severity Reaction Status Last Updated Sulfacetamide ([id number]) Allergy Severe Active 04/27/11 Sulfamethoxazole w/Trimethoprim Allergy Unknown DIZZINESS Active 07/06/16 ([id number]) Clopidogrel ([id number]) Allergy Unknown Active 07/04/15 Immunizations No immunization information available. Vital Signs Acute Vital Signs Vital Response Date/Time Blood Pressure 109/56 mm Hg 03/24/2018 5:35pm Pulse Pulse Rate (adult) 81 beats per minute (60 - 100) 03/24/2018 5:35pm Respiratory Rate 18 breaths per minute (10 - 24) 03/24/2018 5:35pm Temperature Source Oral 03/24/2018 5:35pm Height 6 ft 4 in 03/24/2018 4:33pm Weight 303 lb 03/24/2018 4:33pm Body Mass Index 36.9 kg/m^2 03/24/2018 4:33pm Results Laboratory Results Test Name Result Units Flags Reference Collection Result Comments Date/Time Date/Time White Blood Count 4.9 K/ul 4.0-12.3 02/27/2018 [...] 1:29pm Urine Specific 1.021 1.003-1.03 02/27/2018 02/27/2018 [place] 0 1:23pm 1:29pm Urine Blood TRACE H [...] 02/27/2018 1:23pm 1:52pm Blood Urea 22 mg/dL 8-23 02/27/2018 02/27/2018 Nitrogen 1:23pm 1:52pm Serum Osmolality 279 [...] U/L 40-130 02/27/2018 02/27/2018 Phosphatase 1:23pm 1:52pm Prothrombin Time 18.7 SECONDS H 10.3-12.3 03/15/2018 03/15/2018 9:13am 10:02am THERAPEUTIC LEVEL: 1.5 to 1.9 times normal range of PT Prothromb Time 1.74 03/15/2018 03/15/2018 International 9:13am 10:02am Recommended therapeutic range for patients receiving Ratio warfarin (coumadin) therapy: INR is 2.0 to 3.0 Recommended range for patients with mechanical prosthetic heart valves: INR is 2.5 to 3.5 Procedures Procedure Status Date Provider(s) CT ABDOMEN W/O & W/DYE Completed 02/08/18 ASSAY OF CREATININE Completed 02/08/18 ROUTINE VENIPUNCTURE Completed 02/08/18 COMPREHEN METABOLIC PANEL Completed 02/27/18 COMPLETE CBC W/AUTO DIFF WBC Completed 02/27/18 ASSAY OF LIPASE Completed 02/27/18 ASSAY OF AMYLASE Completed 02/27/18 URINALYSIS AUTO W/SCOPE Completed 02/27/18 ROUTINE VENIPUNCTURE Completed 02/27/18 PROTHROMBIN TIME Completed 03/15/18 ROUTINE VENIPUNCTURE Completed 03/15/18 CT abdomen without then with contrast Completed 02/08/18 JENNYFER RICO POULTRY HUSBANDRY WORKER Encounters Encounter Location Arrival/Admit Date Discharge/Depart Date Attending Provider Departed [place] 03/24/18 4:15pm 03/24/18 5:31pm [address] Emergency Room [facility] Registered [place] 03/15/18 8:58am JENNYFER RICO [facility]L[facility] HUSBANDRY WORK[facility] Medical Ctr Departed [place] 02/27/18 12:28pm 02/27/18 1:50pm Andrew [facility] Emergency Room [facility] Registered [place] 02/08/18 8:45am JENNYFER RICO [facility] Recent Diagnosis
--- OUTSIDE RECORDS SUMMARY | 2019-01-23 10:05 | XMS REPORT | Continuity of Care Document ---
:1935 Author Organization [facility] Address [address] [place] [address] Phone Unavailable Care Team Providers Name Role Phone JENNYFER RICO NP Primary Care Physician Insurance Providers Guarantor Tomas Suárez Address [address] [place] [phone] Email NONE Payer [facility] Policy Number [id number] Subscriber's Name Tomas Suárez Relationship Self / Same As Patient Group Number [id number] Group Name NA Advance Directives Directive Response Recorded Date/Time Advance Directives No 09/17/15 1:23pm Advance Directive on File No 04/09/18 10:20pm Directive to Physicians/Living Will No 09/17/15 1:23pm Health Care Proxy No 09/17/15 1:23pm Name of Surrogate/Decision Maker NA 04/09/18 11:13pm Organ Donor No 09/17/15 1:23pm Medical Power of Proposal Specialist No 09/17/15 1:23pm Patient/Family Given Education Material R/T Y - KR...04/09/18 04/09/18 11: 13pm Directives? Chief Complaint and Reason for Visit Chief Complaint Dyspnea/Respdistress Reason for Visit Anxiety Dyspnea Problems Medical Problem Onset Date Status A-fib [...] Acute DVT (deep venous thrombosis) Unknown Acute Dyspnea Unknown Acute Hematuria Unknown Acute Hx pulmonary embolism Unknown Acute Muscle pain Unknown Acute Peripheral edema Unknown Acute Pulmonary congestion Unknown Acute Renal insufficiency Unknown Acute Renal insufficiency Unknown Acute Right-sided [...] 30 Tablet (Zyloprim *) 100 Mg Tab Amoxicillin/Clavu 875 Mg ORAL Daily lanate 875/125MG * (Augmentin*) 875 Mg Tab Aspirin (Aspirin 81 Mg ORAL [...] Mg *) 100 Mg Cap Furosemide (Lasix 40 Mg ORAL Daily 40 Mg*) 40 Mg Tab Gabapentin 200 Mg ORAL Twice A Day (Gabapentin 100 Mg (Neurontin) *) 100 Mg Cap Hydrocodone-Aceta 1 Tab ORAL Every 8 Hours minophen 10/325MG As Needed as * ([place] 10/325MG needed for *) 1 Tab Tab [...] 1 Tab Daily Discontinued Oral Furosemide (Lasix 20 Mg*) 20 Mg Tab, 20 Twice A Day for Chf 03/10/17 Discontinued Mg Oral Furosemide (Lasix 40 Mg*) 40 Mg [...] Applicable Not Applicable Hx Physical Abuse No 04/09/2018 10:20pm Not Applicable Not Applicable Smoking Status Start Date Stop Date Former smoker Hospital Discharge Instructions No hospital discharge instruction information available. Plan of Care Discharge Date 04/09/18 11:17pm Instructions/Education Provided Shortness of Breath, Adult Living With Anxiety Forms Provided Portal Welcome Letter Prescriptions See Medication Section Referrals JENNYFER RICO NP Address: [address] [place] [address] Functional Status No functional status information available. Allergies, Adverse Reactions, Alerts Allergen Type Severity Reaction Status Last Updated Sulfacetamide ([id number]) Allergy Severe Active 04/27/11 Sulfamethoxazole w/Trimethoprim Allergy Unknown DIZZINESS Active 07/06/16 ([id number]) Clopidogrel ([id number]) Allergy Unknown Active 07/04/15 Immunizations No immunization information available. Vital Signs Acute Vital Signs Vital Response Date/Time Blood Pressure 159/72 mm Hg 04/09/2018 11:17pm Pulse Pulse Rate (adult) 81 beats per minute (60 - 100) 04/09/2018 11:17pm Respiratory Rate 20 breaths per minute (10 - 24) 04/09/2018 11:17pm Temperature Source Oral 04/09/2018 11:17pm Height 6 ft 4 in 04/09/2018 10:20pm Weight 301 lb 04/09/2018 10:20pm Body Mass Index 36.6 kg/m^2 04/09/2018 10:20pm Results Laboratory Results Test Name Result Units Flags Reference Collection Result Comments Date/Time Date/Time Urine Color YELLOW 02/27/2018 02/27/2018 1:23pm 1:29pm Urine Appearance CLEAR CLEAR 02/27/2018 02/27/2018 1:23pm 1:29pm Urine Glucose NEGATIVE NEGATIVE 02/27/2018 02/27/2018 1:23pm 1:29pm Urine Bilirubin NEGATIVE NEGATIVE 02/27/2018 02/27/2018 1:23pm 1:29pm Urine Ketones NEGATIVE NEGATIVE 02/27/2018 02/27/2018 1:23pm 1:29pm Urine Specific 1.021 1.003-1.03 02/27/2018 02/27/2018 [place] 0 1:23pm 1:29pm Urine Blood TRACE H NEGATIVE 02/27/2018 02/27/2018 1:23pm 1:29pm Urine pH 7.500 5-9 02/27/2018 02/27/2018 1:23pm 1:29pm Urine Protein TRACE NEGATIVE 02/27/2018 02/27/2018 1:23pm 1:29pm Urine NORMAL mg/dL 0.2-1.0 02/27/2018 02/27/2018 Urobilinogen 1:23pm 1:29pm Urine Nitrate NEGATIVE NEGATIVE 02/27/2018 [...] Culture NO 02/27/2018 02/27/2018 Reflexed 1:23pm 1:31pm Amylase Level 127 U/L H 28-100 02/27/2018 02/27/2018 1:23pm 1:52pm Lipase 21 U/L 13-60 02/27/2018 02/27/2018 1:23pm 1:52pm White Blood 9.3 K/ul 4.0-12.3 03/25/2018 03/25/2018 Count 8:19am 8:40am Red Blood Count 4.23 M/ul 3.80-5.80 03/25/2018 03/25/2018 8:19am 8:40am Hemoglobin 13.5 g/dl 11.67-17.2 03/25/2018 03/25/2018 2 8:19am 8:40am Hematocrit 39.7 % 35.0-51.0 03/25/2018 03/25/2018 8:19am 8:40am Mean Corpuscular 93.9 fl 78-96 03/25/2018 03/25/2018 Volume 8:19am 8:40am Mean Corpuscular 32.0 pg 26.8-33.4 03/25/2018 03/25/2018 Hemoglobin 8:19am 8:40am Mean Corpuscular 34.1 g/dl 32.3-36.7 03/25/2018 03/25/2018 Hemoglobin 8:19am 8:40am Concent Red Cell 16.1 % H 11.6-15.4 03/25/2018 03/25/2018 Distribution 8:19am 8:40am Width Platelet Count 109 K/ul L 115-328 03/25/2018 03/25/2018 8:19am 8:40am Mean Platelet 8.0 fl L 8.4-11.8 03/25/2018 03/25/2018 Volume 8:19am 8:40am Neutrophils (%) 78.0 % 44.7-82.4 03/25/2018 03/25/2018 (Auto) 8:19am 8:40am Lymphocytes (%) 17.8 % 10.0-50.0 03/25/2018 03/25/2018 (Auto) 8:19am 8:40am Monocytes (%) 3.3 % L 3.9-13.4 03/25/2018 03/25/2018 (Auto) 8:19am 8:40am Eosinophils (%) 0.2 % 0.0-6.43 03/25/2018 03/25/2018 (Auto) 8:19am 8:40am Basophils (%) 0.8 % H 0.0-0.72 03/25/2018 03/25/2018 (Auto) 8:19am 8:40am N/A [place]LE[place] NORMAL RBC 03/25/2018 03/25/2018 8:19am 9:28am Prothrombin Time 27.0 SECONDS H 10.3-12.3 03/25/2018 03/25/2018 9:29am 9:49am THERAPEUTIC LEVEL: 1.5 to 1.9 times normal range of PT Prothromb Time 2.54 03/25/2018 03/25/2018 International 9:29am 9:49am Recommended therapeutic range for patients receiving Ratio warfarin (coumadin) therapy: INR is 2.0 to 3.0 Recommended range for patients with mechanical prosthetic heart valves: INR is 2.5 to 3.5 Activated 27.4 SECONDS 22.5-37.0 03/25/2018 03/25/2018 Partial 9:29am 9:49am Thromboplast Time Random Glucose 153 mg/dL H 82-115 03/25/2018 03/25/2018 9:29am 9:53am Blood Urea 22 mg/dL 8-03/25/2018 03/25/2018 Nitrogen 9:29am 9:53am Serum Osmolality 286 280-300 03/25/2018 03/25/2018 9:29am 9:53am Creatinine 1.8 mg/dL H 0.70-1.20 03/25/2018 03/25/2018 9:29am 9:53am Glomerular 43.93 L 03/25/2018 03/25/2018 GFR RESULTS ARE REPORTED IN mL/min/1.73m2. Filtration Rate 9:29am 9:53am Calc Normal GFR: >60mL/min Moderately decreased GFR: 30-59 mL/min Severely decreased GFR: 15-29 mL/min Kidney Failure (or Dialysis): <15 mL/min The calculated eGFR is not valid for patients younger than 18 years or older than 75 years. BUN/Creatinine 12.2 12-20 03/25/2018 03/25/2018 Ratio 9:29am 9:53am Sodium Level 140 mmol/L 135-145 03/25/2018 03/25/2018 9:29am 9:53am Potassium Level 3.7 mmol/L 3.5-5.2 03/25/2018 03/25/2018 9:29am 9:53am Chloride Level 102 mmol/L 98-108 03/25/2018 03/25/2018 9:29am 9:53am Carbon Dioxide 29 mmol/L 21-32 03/25/2018 03/25/2018 Level 9:29am 9:53am Anion Gap 12.7 mEq/L 12-20 03/25/2018 03/25/2018 9:29am 9:53am Calcium Level 8.1 mg/dL L 8.8-10.2 03/25/2018 03/25/2018 9:29am 9:53am Total Protein 7.7 g/dL 6.6-8.7 03/25/2018 03/25/2018 9:29am 9:53am Albumin 3.7 g/dL 3.5-5.2 03/25/2018 03/25/2018 9:29am 9:53am Globulin 4.0 gm/dL 03/25/2018 03/25/2018 9:29am 9:53am Albumin/Globulin 0.9 >1.0 03/25/2018 03/25/2018 Ratio 9:29am 9:53am Total Bilirubin 0.4 mg/dL 0.0-1.2 03/25/2018 03/25/2018 9:29am 9:53am Aspartate Amino 11 U/L L 15-40 03/25/2018 03/25/2018 Transf 9:29am 9:53am (AST/SGOT) Alanine 9 U/L 0-41 03/25/2018 03/25/2018 Aminotransferase 9:29am 9:53am (ALT/SGPT) HF-Uzr-N-Type 7396 pg/mL H 0-450 03/25/2018 03/25/2018 Natriuretic 9:29am 10:01am Peptide Total Alkaline 58 U/L 40-130 03/25/2018 03/25/2018 Phosphatase 9:29am 9:53am Creatine Kinase 57 U/L 20-200 03/25/2018 03/25/2018 9:29am 9:53am Troponin I < 0.30 ng/mL 0.0-0.5 03/25/2018 03/25/2018 Published clinical studies have shown elevations of cTnI in 9:29am 10:01am patients with myocardial injury, as seen in unstable angina pectoris, cardiac contusions, and heart transplants. Elevations have also been seen in patients with rhabdomyolysis and polymyositis. Elevated troponin levels point to myocardial injury, but are not necessarily indicative of an ischemic mechanism. The term ID should be used when there is evidence of cardiac damage, as detected by marker proteins in a clinical setting consistent with myocardial ischemia. If the clinical circumstance suggests that an ischemic mechanism is unlikely, other causes of cardiac injury should be considered. For diagnostic purposes, the results should always be assessed in conjunction with the patient's medical history, clinical examination and other findings. Creatine Kinase 1.9 ng/ml 0.0-3.6 03/25/2018 03/25/2018 MB 9:29am 10:01am DIAGNOSTIC CITERIA: CKMB CKMB RELATIVE INDEX SUGGESTIVE OF NON-AMI < or=5 N/A BERG ZONE (INCONCLUSIVE) > 5 < or=4 SUGGESTIVE OF AMI >5 > 4 Procedures Procedure Status Date Provider(s) CT ABDOMEN W/O & W/DYE Completed 02/08/18 ASSAY OF CREATININE Completed 02/08/18 ROUTINE VENIPUNCTURE Completed 02/08/18 COMPREHEN METABOLIC PANEL Completed 02/27/18 COMPLETE CBC W/AUTO DIFF WBC Completed 02/27/18 ASSAY OF LIPASE Completed 02/27/18 ASSAY OF AMYLASE Completed 02/27/18 URINALYSIS AUTO W/SCOPE Completed 02/27/18 ROUTINE VENIPUNCTURE Completed 02/27/18 PROTHROMBIN TIME Completed 03/15/18 ROUTINE VENIPUNCTURE Completed 03/15/18 EMERGENCY DEPT VISIT Completed 03/24/18 INSERT PICC CATH Completed 03/25/18 EMERGENCY DEPT VISIT Completed 03/25/18 THER/PROPH/DIAG IV INF INIT Completed 03/25/18 X-RAY EXAM CHEST 1 VIEW Completed 03/25/18 THER/PROPH/DIAG IV INF ADDON Completed 03/25/18 TX/PRO/DX INJ NEW DRUG ADDON Completed 03/25/18 COMPLETE CBC W/AUTO DIFF WBC Completed 03/25/18 CREATINE MB FRACTION Completed 03/25/18 ASSAY OF CK (CPK) Completed 03/25/18 PROTHROMBIN TIME Completed 03/25/18 THROMBOPLASTIN TIME PARTIAL Completed 03/25/18 ROUTINE VENIPUNCTURE Completed 03/25/18 ASSAY OF TROPONIN QUANT Completed 03/25/18 COMPREHEN METABOLIC PANEL Completed 03/25/18 ASSAY OF NATRIURETIC PEPTIDE Completed 03/25/18 US GUIDE VASCULAR ACCESS Completed 03/25/18 ELECTROCARDIOGRAM TRACING Completed 03/25/18 AMIODARONE HYDROCHLORE 30 MG INJ Completed 03/25/18 AMIODARONE HYDROCHLORE 30 MG INJ Completed 03/25/18 CT abdomen without then with contrast Completed 02/08/18 JENNYFER RICO [employer] X-ray of chest, single view Completed 03/25/[address] MD X-ray of chest, two views Completed 04/09/18 XAVIER BURNS MD Encounters Encounter Location Arrival/Admit Date Discharge/Depart Date Attending Provider Departed [place] 04/09/18 10:12pm 04/09/18 11:17pm XAVIER BURNS [facility] Departed [place] 03/25/18 8:01am 03/25/18 1:25pm [address] Emergency Room [facility] Departed [place] 03/24/18 4:15pm 03/24/18 5:31pm [address] Emergency Room [facility] Registered [place] 03/15/18 8:58am JENNYFER RICO [facility] [facility] Departed [place] 02/27/18 12:28pm 02/27/18 1:50pm Andrew GREENE Emergency Room [facility] Registered [place] 02/08/18 8:45am JENNYFER RICO [facility] [facility] Recent Diagnosis
--- OUTSIDE RECORDS SUMMARY | 2019-01-23 10:05 | XMS REPORT | Continuity of Care Document ---
:1935 Author Organization [facility] Address [address] [place] [address] Phone Unavailable Care Team Providers Name Role Phone JENNYFER RICO NP Primary Care Physician Insurance Providers Guarantor Tomas Bunch Address [address] [place] [address] Email NONE Payer [facility] Policy Number [id number] Subscriber's Name Tomas Bunch Relationship Self / Same As Patient Group Number [id number] Group Name NA Advance Directives Directive Response Recorded Date/Time Advance Directives No 09/17/15 1:23pm Advance Directive on File No 03/25/18 8:04am Directive to Physicians/Living Will No 09/17/15 1:23pm Health Care Proxy No 09/17/15 1:23pm Name of Surrogate/Decision Maker NA 03/25/18 9:15am Organ Donor No 09/17/15 1:23pm Medical Power of Head Control Clerk No 09/17/15 1:23pm Patient/Family Given Education Material R/T Y - KR...03/25/18 03/25/18 9: 15am Directives? Chief Complaint and Reason for Visit Chief Complaint Chest Pain Reason for Visit Atrial fibrillation with tachycardic ventricular rate Renal insufficiency A-fib Hypotension Problems Medical Problem Onset Date Status A-fib [...] Hours minophen 10/325MG As Needed as * ([place] 10/325MG needed for *) 1 Tab Tab [...] Applicable Not Applicable Hx Physical Abuse No 03/25/2018 8:04am Not Applicable Not Applicable Smoking Status Start Date Stop Date Former smoker Hospital Discharge Instructions No hospital discharge instruction information available. Plan of Care Discharge Date 03/25/18 1:25pm Forms Provided Portal Welcome Letter Prescriptions See Medication Section Referrals JENNYFER RICO NP Address: [address] [place] [phone] Additional Instructions/Education TRANSFER TO DR SRIKANTH TUCKER [phone] AT [facility] Functional Status No functional status information available. Allergies, Adverse Reactions, Alerts Allergen Type Severity Reaction Status Last Updated Sulfacetamide ([id number]) Allergy Severe Active 04/27/11 Sulfamethoxazole w/Trimethoprim Allergy Unknown DIZZINESS Active 07/06/16 ([id number]) Clopidogrel ([id number]) Allergy Unknown Active 07/04/15 Immunizations No immunization information available. Vital Signs Acute Vital Signs Vital Response Date/Time Blood Pressure 116/65 mm Hg 03/25/2018 1:25pm Pulse Pulse Rate (adult) 165 beats per minute (60 - 100) 03/25/2018 1:25pm Respiratory Rate 18 breaths per minute (10 - 24) 03/25/2018 1:25pm Temperature Source Oral 03/25/2018 1:25pm Height 6 ft 4 in 03/25/2018 8:04am Weight 303 lb 03/25/2018 8:04am Body Mass Index 36.9 kg/m^2 03/25/2018 8:04am Results Laboratory Results Test Name Result Units Flags Reference Collection Result Comments Date/Time Date/Time Urine Color YELLOW 02/27/2018 02/27/2018 1:23pm 1:29pm Urine Appearance CLEAR CLEAR 02/27/2018 02/27/2018 1:23pm 1:29pm Urine Glucose NEGATIVE NEGATIVE 02/27/2018 02/27/2018 1:23pm 1:29pm Urine Bilirubin NEGATIVE NEGATIVE 02/27/2018 02/27/2018 1:23pm 1:29pm Urine Ketones NEGATIVE NEGATIVE 02/27/2018 02/27/2018 1:23pm 1:29pm Urine Specific 1.021 1.003-1.03 02/27/2018 02/27/2018 [place] 0 1:23pm 1:29pm Urine Blood TRACE H [...] 0-41 03/25/2018 03/25/2018 Aminotransferase 9:29am 9:53am (ALT/SGPT) OV-Hhs-G-Type 7396 pg/mL H 0-450 03/25/2018 03/25/2018 Natriuretic [...] indicative of an ischemic mechanism. The term DE should be used when there is evidence [...] then with contrast Completed 02/08/18 JENNYFER RICO [employer] X-ray of chest, single view Active 03/25/[address] MD Encounters Encounter Location Arrival/Admit Date Discharge/Depart Date Attending Provider Departed [place] 03/25/18 8:01am 03/25/18 1:25pm [facility] [facility] [facility] Departed [place] 03/24/18 4:15pm 03/24/18 5:31pm [address] [facility] Registered [place] 03/15/18 8:58am JENNYFER RICO [facility] Departed [place] 02/27/18 12:28pm 02/27/18 1:50pm Andrew GREENE [facility] Registered [place] 02/08/18 8:45am JENNYFER RICO [facility] [employer] [facility] Medical Ctr Recent Diagnosis
--- OUTSIDE RECORDS SUMMARY | 2019-01-23 10:05 | XMS REPORT | Continuity of Care Document ---
:1935 Author Organization [facility] Address [address] [place] [address] Phone Unavailable Care Team Providers Name Role Phone JENNYFER RICO NP Primary Care Physician Insurance Providers Guarantor Tomas Bunch Address [address] [place] [address] Email NONE Payer [facility] Policy Number [id number] Subscriber's Name Tomas Bunch Relationship Self / Same As Patient Group Number [id number] Group Name NA Advance Directives Directive Response Recorded Date/Time Advance Directives No 09/17/15 1:23pm Advance Directive on File No 05/25/18 5:45pm Directive to Physicians/Living Will No 09/17/15 1:23pm Health Care Proxy No 09/17/15 1:23pm Organ Donor No 09/17/15 1:23pm Medical Power of Skirt Clipper No 09/17/15 1:23pm Patient/Family Given Education Material R/T Y - 05/25/18..AW 05/25/18 5:45pm Directives? Chief Complaint and Reason for Visit Chief Complaint Extremity Pain/Injury Reason for Visit CHF (congestive heart failure) CKD (chronic kidney disease) Problems Medical Problem Onset Date Status A-fib [...] 30 Tablet (Zyloprim *) 100 Mg Tab Amiodarone Hcl 200 Mg ORAL Daily (Pacerone 200 Mg*) 200 Mg Tab Aspirin (Aspirin 81 Mg ORAL Daily *) 81 Mg Chw Atorvastatin * 1 Tab ORAL Daily 30 Tablet (Lipitor 40 Mg*) 40 Mg Tab Colchicine 1 Tab ORAL Twice [...] Hours minophen 10/325MG As Needed as * (Louise 10/325MG needed for *) 1 Tab Tab Pain Losartan 1 Tab ORAL Daily 30 Tablet Potassium (Cozaar 100 Mg *) 100 Mg Tab Metoprolol 25 Mg ORAL Twice A Day Tartrate (Lopressor *) 25 Mg Tab Rivaroxaban 15 Mg ORAL Twice A Day (Xarelto *) 10 Mg Tab Past Home Medications Medication Directions [...] *) 875 Mg Tab, 1 Tab Oral Amoxicillin/Clavulanate 875/125MG * Daily Discontinued (Augmentin*) 875 Mg Tab, 875 Mg Oral Apixaban * (Eliquis *) 5 Mg Tab, 2.5 Mg Twice A Day for Afib 03/10/17 Discontinued Oral Aspirin 325 Mg Tab, 325 Mg Oral Every 24 Hours 07/07/15 Discontinued Carvedilol (Coreg *) 25 Mg Tab, 1 Tab Twice A Day Discontinued Oral Carvedilol (Coreg *) 6.25 Mg Tab, 1 [...] *) 0.4 Mg Cap, 1 Cap Oral Warfarin * (Jantoven 1 Mg*) 1 Mg Tab, 1 Every Other Day Discontinued Mg Oral Warfarin * (Jantoven 2.5 Mg*) 2.5 Mg Daily Discontinued Tab, 2.5 Mg Oral Social History Social History Problem Response Recorded Date/Time Onset Date Status Hx Substance Use Treatment No 07/05/2016 4:09pm Not Applicable Not Applicable Hx Alcohol Use No 07/05/2016 4:09pm Not Applicable Not Applicable Hx Physical Abuse No 05/25/2018 5:45pm Not Applicable Not Applicable Smoking Status Start Date Stop Date Former smoker Hospital Discharge Instructions No hospital discharge instruction information available. Plan of Care Discharge Date 05/25/18 9:28pm Instructions/Education Provided Chronic Kidney Disease, Adult, Plah-mh-Vnfb Heart Failure, Wvkp-[id number]-Vdfq Prescriptions See Medication Section Referrals JENNYFER RICO NP Address: [address] [place], [place] [address] Additional Instructions/Education Monitor her fluid intake at home and record this Monitor weight daily and record call your genetic engineer tomorrow to discuss the swelling in the legs Return for new or worsening symptoms Care Plan and Goals NO MEDICATIONS PRESCRIBED FOLLOW UP WITH PCP RETURN TO ER WITH ANY FURTHER EMERGENT CONDITIONS Functional Status No functional status information available. Allergies, Adverse Reactions, Alerts Allergen Type Severity Reaction Status Last Updated Sulfacetamide ([id number]) Allergy Severe Active 04/27/11 Sulfamethoxazole w/Trimethoprim Allergy Unknown DIZZINESS Active 07/06/16 ([id number]) Clopidogrel ([id number]) Allergy Unknown Active 07/04/15 Immunizations No immunization information available. Vital Signs Acute Vital Signs Vital Response Date/Time Blood Pressure 155/73 mm Hg 05/25/2018 9:11pm Pulse Pulse Rate (adult) 86 beats per minute (60 - 100) 05/25/2018 9:11pm Respiratory Rate 18 breaths per minute (10 - 24) 05/25/2018 9:11pm Temperature Source Oral 05/25/2018 9:11pm Height 6 ft 4 in 05/25/2018 5:45pm Weight 308 lb 05/25/2018 5:45pm Body Mass Index 37.5 kg/m^2 05/25/2018 5:45pm Results Laboratory Results Test Name Result Units Flags Reference Collection Result Comments Date/Time Date/Time White Blood Count 5.1 K/ul 4.0-12.3 05/25/2018 05/25/2018 6:08pm 6:15pm Red Blood Count 3.83 M/ul 3.80-5.80 05/25/2018 05/25/2018 6:08pm 6:15pm Hemoglobin 12.1 g/dl 11.67-17.2 05/25/2018 05/25/2018 2 6:08pm 6:15pm Hematocrit 37.2 % 35.0-51.0 05/25/2018 05/25/2018 6:08pm 6:15pm Mean Corpuscular 97.2 fl H 78-96 05/25/2018 05/25/2018 Volume 6:08pm 6:15pm Mean Corpuscular 31.5 pg 26.8-33.4 05/25/2018 05/25/2018 Hemoglobin 6:08pm 6:15pm Mean Corpuscular 32.4 g/dl 32.3-36.7 05/25/2018 05/25/2018 Hemoglobin Concent 6:08pm 6:15pm Red Cell 16.8 % H 11.6-15.4 05/25/2018 05/25/2018 Distribution Width 6:08pm 6:15pm Platelet Count 50 K/ul L 115-328 05/25/2018 05/25/2018 6:08pm 6:15pm Mean Platelet 8.8 fl 8.4-11.8 05/25/2018 05/25/2018 Volume 6:08pm 6:15pm Neutrophils (%) 61.1 % 44.7-82.4 05/25/2018 05/25/2018 (Auto) 6:08pm 6:15pm Lymphocytes (%) 31.3 % 10.0-50.0 05/25/2018 05/25/2018 (Auto) 6:08pm 6:15pm Monocytes (%) 4.5 % 3.9-13.4 05/25/2018 05/25/2018 (Auto) 6:08pm 6:15pm Eosinophils (%) 2.0 % 0.0-6.43 05/25/2018 05/25/2018 (Auto) 6:08pm 6:15pm Basophils (%) 1.1 % H 0.0-0.72 05/25/2018 05/25/2018 (Auto) 6:08pm 6:15pm Prothrombin Time 13.0 SECONDS H 10.3-12.3 05/25/2018 05/25/2018 6:08pm 6:26pm THERAPEUTIC LEVEL: 1.5 to 1.9 times normal range of PT Prothromb Time 1.19 05/25/2018 05/25/2018 International 6:08pm 6:26pm Recommended therapeutic range for patients receiving Ratio warfarin (coumadin) therapy: INR is 2.0 to 3.0 Recommended range for patients with mechanical prosthetic heart valves: INR is 2.5 to 3.5 Activated Partial 31.3 SECONDS 22.5-37.0 05/25/2018 05/25/2018 Thromboplast Time 6:08pm 6:26pm Random Glucose 91 mg/dL 82-115 05/25/2018 05/25/2018 6:08pm 6:27pm Blood Urea 22 mg/dL 8-23 05/25/2018 05/25/2018 Nitrogen 6:08pm 6:27pm Serum Osmolality 286 280-300 05/25/2018 05/25/2018 6:08pm 6:27pm Creatinine 2.0 mg/dL H 0.70-1.20 05/25/2018 05/25/2018 6:08pm 6:27pm Glomerular 38.90 L 05/25/2018 05/25/2018 GFR RESULTS ARE REPORTED IN mL/min/1.73m2. Filtration Rate 6:08pm 6:27pm Calc Normal GFR: >60mL/min Moderately decreased GFR: 30-59 mL/min Severely decreased GFR: 15-29 mL/min Kidney Failure (or Dialysis): <15 mL/min The calculated eGFR is not valid for patients younger than 18 years or older than 75 years. BUN/Creatinine 11.0 L 12-05/25/2018 05/25/2018 Ratio 6:08pm 6:27pm Sodium Level 142 mmol/L 135-145 05/25/2018 05/25/2018 6:08pm 6:27pm Potassium Level 4.4 mmol/L 3.5-5.2 05/25/2018 05/25/2018 6:08pm 6:27pm Chloride Level 106 mmol/L 98-108 05/25/2018 05/25/2018 6:08pm 6:27pm Carbon Dioxide 27 mmol/L 21-32 05/25/2018 05/25/2018 Level 6:08pm 6:27pm Anion Gap 13.4 mEq/L -05/25/2018 05/25/2018 6:08pm 6:27pm Calcium Level 8.4 mg/dL L 8.8-10.2 05/25/2018 05/25/2018 6:08pm 6:27pm Total Protein 7.5 g/dL 6.6-8.7 05/25/2018 05/25/2018 6:08pm 6:27pm Albumin 3.7 g/dL 3.5-5.2 05/25/2018 05/25/2018 6:08pm 6:27pm Globulin 3.8 gm/dL 05/25/2018 05/25/2018 6:08pm 6:27pm Albumin/Globulin 1.0 >1.0 05/25/2018 05/25/2018 Ratio 6:08pm 6:27pm Total Bilirubin 0.4 mg/dL 0.0-1.2 05/25/2018 05/25/2018 6:08pm 6:27pm Aspartate Amino 19 U/L 15-40 05/25/2018 05/25/2018 TEST RESULT Transf (AST/SGOT) 6:08pm 6:27pm INTERFERENCE DUE TO HEMOLYSIS. Alanine 13 U/L 0-41 05/25/2018 05/25/2018 Aminotransferase 6:08pm 6:27pm (ALT/SGPT) EV-Rwr-U-Type 2576 pg/mL H 0-450 05/25/2018 05/25/2018 Natriuretic 6:08pm 6:31pm Peptide Total Alkaline 64 U/L 40-130 05/25/2018 05/25/2018 Phosphatase 6:08pm 6:27pm Creatine Kinase 101 U/L 20-200 05/25/2018 05/25/2018 6:08pm 6:27pm Troponin I < 0.30 ng/mL 0.0-0.5 05/25/2018 05/25/2018 Published clinical studies have shown elevations of cTnI in 6:08pm 6:31pm patients with myocardial injury, as seen in unstable angina pectoris, cardiac contusions, and heart transplants. Elevations have also been seen in patients with rhabdomyolysis and polymyositis. Elevated troponin levels point to myocardial injury, but are not necessarily indicative of an ischemic mechanism. The term IL should be used when there is evidence [...] clinical examination and other findings. Creatine Kinase MB 2.3 ng/ml 0.0-3.6 05/25/2018 05/25/2018 6:08pm 6:31pm DIAGNOSTIC CITERIA: CKMB CKMB RELATIVE INDEX SUGGESTIVE OF NON-AMI < or=5 N/A BERG ZONE (INCONCLUSIVE) > 5 < or=4 SUGGESTIVE OF AMI >5 > 4 Procedures Procedure Status Date Provider(s) EMERGENCY DEPT VISIT Completed 04/09/18 X-RAY EXAM CHEST 2 VIEWS Completed 04/09/18 X-ray of chest, two views Completed 04/09/18 XAVIER BURNS MD X-ray of chest, single view Completed 05/25/18 DAINA BRAUN [facility] Encounters Encounter Location Arrival/Admit Date Discharge/Depart Date Attending Provider Departed [place] 05/25/18 5:44pm 05/25/18 9:28pm LUCIA [facility]ALL[facility] Departed [place] 04/09/18 10:12pm 04/09/18 11:17pm XAVIER BURNS [facility] Recent Diagnosis
--- OUTSIDE RECORDS SUMMARY | 2019-01-23 10:06 | XMS REPORT | Continuity of Care Document ---
:[address] [facility] Address [address] [place] [address] Phone Unavailable Care Team Providers Name Role Phone JENNYFER RICO NP Primary Care Physician Insurance Providers Guarantor Tomas Suárez Address [address] [place] [address] Email NONE Payer [facility] Policy Number [id number] Subscriber's Name Tomas Suárez Relationship Self / Same As Patient Group Number [id number] Group Name NA Advance Directives Directive Response Recorded Date/Time Advance Directives No 09/17/15 1:23pm Advance Directive on File No 11/20/18 12:56pm Directive to Physicians/Living Will No 09/17/15 1:23pm Health Care Proxy No 09/17/15 1:23pm Organ Donor No 09/17/15 1:23pm Medical Power of Administrative Volunteer No 09/17/15 1:23pm Patient/Family Given Education Material R/T Y - 11/20/18.....SBM 11/20/18 1 :26pm Directives? Chief Complaint and Reason for Visit Chief Complaint Chest Pain Reason for Visit [id number] Problems Medical Problem Onset Date Status A-fib [...] abdominal wall Unknown Acute Syncope Unknown Acute Trapezius strain Unknown Acute Urinary tract infection with pyuria Unknown Acute Medications Current Home Medications Medication Dose Units Route Directions Days Qty Instructions Start Date Albuterol/Ipratro 1 Puff ORAL Four Times pium (Combivent Daily Respimat *) 1 Ea Inh Allopurinol 1 Tab ORAL Daily 30 Tablet (Zyloprim *) 100 Mg Tab Amiodarone Hcl 200 Mg ORAL Daily (Pacerone 200 Mg*) 200 Mg Tab Apixaban (Eliquis 2.5 Mg ORAL Twice A Day 30 Days 60 Tablet *) 2.5 Mg Tab Aspirin (Aspirin 81 Mg ORAL Daily *) 81 Mg Chw Atorvastatin * 1 Tab ORAL Daily 30 Tablet (Lipitor *) 40 Mg Tab Colchicine 1 Tab ORAL Twice A Day as 30 Tablet (Colcrys) 0.6 Mg needed for Gout Tab Pain Docusate Sodium 50 Mg ORAL Twice A Day (Stool Softener 100 Mg *) 100 Mg Cap Furosemide (Lasix 40 Mg ORAL Daily 40 Mg*) 40 Mg Tab Gabapentin 200 Mg ORAL Twice A Day (Neurontin *) 100 Mg Cap Hydrocodone-Aceta 1 Tab ORAL Every 8 Hours minophen 10/325MG As Needed as * ([place] 10/325MG needed for Pain *) 1 Tab Tab Losartan 1 Tab ORAL Daily 30 Tablet Potassium (Cozaar 100 Mg *) 100 Mg Tab Meloxicam (Mobic 1 Tab ORAL Daily for 30 Days 30 Tablet *) 15 Mg Tab Inflammation 9 Methocarbamol 1 Tab ORAL Twice A Day for 30 Days 60 Tablet (Robaxin 750 Mg Muscle Spasm 9 *) 750 Mg Tab Metoprolol 25 Mg ORAL Twice A Day Tartrate (Lopressor *) 25 Mg Tab Nitrofurantoin * 1 Cap ORAL Twice A Day 20 Cap (Macrobid *) 100 Mg Cap Rivaroxaban 15 Mg ORAL Twice A Day (Xarelto *) 10 Mg Tab Tramadol/Apap * 1 Tab ORAL Every 6 Hours 30 Days 15 Tablet (Ultracet As Needed for 9 37.5/325 Mg *) 1 Pain Tab Tab Past Home Medications Medication Directions Ordered Status Allopurinol (Zyloprim *) 100 Mg Tab, Once Daily Discontinued 100 Mg Oral Alprazolam (Xanax 0.5 Mg*) 0.5 Mg Tab, Bedtime Discontinued 1 Tab Oral Amiodarone Hcl (Cordorone *) 200 Mg Daily Discontinued Tab, 200 Mg Oral Amlodipine Besylate (Norvasc *) 10 Mg Daily Discontinued Tab, 1 Tab Oral Amoxicillin/Clavulanate Potassium Daily Discontinued (Augmentin *) 875 Mg Tab, 875 Mg Oral Amoxicillin/Clavulanate Potassium Twice A Day Discontinued (Augmentin *) 875 Mg Tab, 1 Tab Oral Apixaban (Eliquis *) 5 Mg Tab, 2.5 Mg [...] Twice A Day Discontinued Mg Oral Gabapentin (Neurontin *) 300 Mg Cap, Once Daily At Bedtime Discontinued 300 Mg Oral Hydralazine Hcl (Apresoline *) 50 Mg Three Times A Day Discontinued Tab, 50 Mg Oral Hydralazine Hcl (Apresoline *) 50 Mg Three Times A Day Discontinued Tab, 1 Tab Oral Hydroco/Apap 10/325 , 1 Tab Oral Every 8 Hours As Needed Discontinued Losartan Potassium (Cozaar *) 100 Mg Daily Discontinued Tab, 1 Tab Oral Pantoprazole Sodium (Protonix Ec *) 40 Daily Discontinued Mg Tab, 40 Mg [...] Applicable Not Applicable Hx Physical Abuse No 11/20/2018 12:56pm Not Applicable Not Applicable Smoking Status Start Date Stop Date Former smoker Hospital Discharge Instructions No hospital discharge instruction information available. Plan of Care Discharge Date 11/20/18 5:35pm Instructions/Education Provided Muscle Strain Forms Provided Portal Welcome Letter Prescriptions See Medication Section Referrals JENNYFER RICO NP Address: [address] [place] [id number] Additional Instructions/Education Recommend that you take the Robaxin 750 mg 2 times daily, also take the Ultracet as needed for pain, and Mobic 15 mg daily for inflammatory pain. Follow up with your primary doctor in 2 days for re check of your condition, or otherwise return to the ED if your condition worsens. Functional Status No functional status information available. Allergies, Adverse Reactions, Alerts Allergen Type Severity Reaction Status Last Updated Sulfacetamide ([id number]) Allergy Severe Active 04/27/11 Sulfamethoxazole w/Trimethoprim Allergy Unknown DIZZINESS Active 07/06/16 ([id number]) Clopidogrel ([id number]) Allergy Unknown Active 07/04/15 Immunizations No immunization information available. Vital Signs Acute Vital Signs Vital Response Date/Time Blood Pressure 128/54 mm Hg 11/20/2018 5:42pm Pulse Pulse Rate (adult) 60 beats per minute (60 - 100) 11/20/2018 5:42pm Respiratory Rate 13 breaths per minute (10 - 24) 11/20/2018 5:42pm Temperature Source Oral 11/20/2018 5:42pm Height 6 ft 4 in 11/20/2018 12:56pm Weight 303 lb 11/20/2018 12:56pm Body Mass Index 36.9 kg/m^2 11/20/2018 12:56pm Results Laboratory Results Test Name Result Units Flags Reference Collection Result Comments Date/Time Date/Time White Blood Count 8.1 K/ul 4.0-12.3 11/20/2018 11/20/2018 1:13pm 1:22pm Red Blood Count 3.98 M/ul 3.80-5.80 11/20/2018 11/20/2018 1:13pm 1:22pm Hemoglobin 11.7 g/dL 11.7-17.2 11/20/2018 11/20/2018 1:13pm 1:22pm Hematocrit 38.4 % 35.0-51.0 11/20/2018 11/20/2018 1:13pm 1:22pm Mean Corpuscular 96.5 fl 83-100 11/20/2018 11/20/2018 Volume 1:13pm 1:22pm Mean Corpuscular 29.4 pg 26.8-33.4 11/20/2018 11/20/2018 Hemoglobin 1:13pm 1:22pm Mean Corpuscular 30.5 g/dL 30-35 11/20/2018 11/20/2018 Hemoglobin Concent 1:13pm 1:22pm Red Cell 15.8 % H 12.0-14.0 11/20/2018 11/20/2018 Distribution Width 1:13pm 1:22pm Platelet Count 49 K/uL L 175-450 11/20/2018 11/20/2018 1:13pm 1:22pm Mean Platelet 11.3 fL 9.4-12.6 11/20/2018 11/20/2018 Volume 1:13pm 1:22pm Neutrophils (%) 69.7 % 44.7-82.4 11/20/2018 11/20/2018 (Auto) 1:13pm 1:22pm Immature 0.4 % 0.0-0.4 11/20/2018 11/20/2018 Granulocyte % 1:13pm 1:22pm (Auto) Lymphocytes (%) 20.5 % 10.0-50.0 11/20/2018 11/20/2018 (Auto) 1:13pm 1:22pm Monocytes (%) 5.0 % 3.9-13.4 11/20/2018 11/20/2018 (Auto) 1:13pm 1:22pm Eosinophils (%) 3.9 % 0.0-6.4 11/20/2018 11/20/2018 (Auto) 1:13pm 1:22pm Basophils (%) 0.5 % 0.2-1.2 11/20/2018 11/20/2018 (Auto) 1:13pm 1:22pm Neutrophils # 5.66 K/uL H 1.78-5.38 11/20/2018 11/20/2018 (Auto) 1:13pm 1:22pm Absolute Immature 0.0 K/uL 0.0-0.03 11/20/2018 11/20/2018 Granulocyte (auto 1:13pm 1:22pm Lymphocytes # 1.7 K/uL 1.32-3.57 11/20/2018 11/20/2018 (Auto) 1:13pm 1:22pm Monocytes # (Auto) 0.41 K/uL 0.30-0.82 11/20/2018 11/20/2018 1:13pm 1:22pm Eosinophils # 0.32 K/uL 0.04-0.54 11/20/2018 11/20/2018 (Auto) 1:13pm 1:22pm Basophils # (Auto) 0.04 K/uL 0.01-0.08 11/20/2018 11/20/2018 1:13pm 1:22pm Nucleated Red 0 /100 WBC 0-0.2 11/20/2018 11/20/2018 Blood Cells % 1:13pm 1:22pm Nucleated Red 0 K/uL 0 11/20/2018 11/20/2018 Blood Cells # 1:13pm 1:22pm D-Dimer 840 ng/mL H* <500 11/20/2018 11/20/2018 Results have been broadcasted to patient's location and 1:26pm 1:49pm called to (ANEESH). By ALEXIS MALLOY 11/20/18 @1348 Prothrombin Time 11.4 SECONDS 10.3-12.3 11/20/2018 11/20/2018 1:26pm 1:43pm THERAPEUTIC LEVEL: 1.5 to 1.9 times normal range of PT Prothromb Time 1.04 11/20/2018 11/20/2018 International 1:26pm 1:43pm Recommended therapeutic range for patients receiving Ratio warfarin (coumadin) therapy: INR is 2.0 to 3.0 Recommended range for patients with mechanical prosthetic heart valves: INR is 2.5 to 3.5 Activated Partial 26.5 SECONDS 22.5-37.0 11/20/2018 11/20/2018 Thromboplast Time 1:26pm 1:43pm Random Glucose 153 mg/dL H 82-115 11/20/2018 11/20/2018 1:13pm 1:38pm Blood Urea 25 mg/dL H 8-23 11/20/2018 11/20/2018 Nitrogen 1:13pm 1:38pm Serum Osmolality 283 280-300 11/20/2018 11/20/2018 1:13pm 1:38pm Creatinine 1.9 mg/dL H 0.70-1.20 11/20/2018 11/20/2018 1:13pm 1:38pm Glomerular 41.17 L 11/20/2018 11/20/2018 GFR RESULTS ARE REPORTED IN mL/min/1.73m2. Filtration Rate 1:13pm 1:38pm Calc Normal GFR: >60mL/min Moderately decreased GFR: 30-59 mL/min Severely decreased GFR: 15-29 mL/min Kidney Failure (or Dialysis): <15 mL/min The calculated eGFR is not valid for patients younger than 18 years or older than 75 years. BUN/Creatinine 13.2 12-11/20/2018 11/20/2018 Ratio 1:13pm 1:38pm Sodium Level 138 mmol/L 135-145 11/20/2018 11/20/2018 1:13pm 1:38pm Potassium Level 4.0 mmol/L 3.5-5.2 11/20/2018 11/20/2018 1:13pm 1:38pm Chloride Level 101 mmol/L 98-108 11/20/2018 11/20/2018 1:13pm 1:38pm Carbon Dioxide 24 mmol/L 21-32 11/20/2018 11/20/2018 Level 1:13pm 1:38pm Anion Gap 17.0 mEq/L 12-11/20/2018 11/20/2018 1:13pm 1:38pm Calcium Level 8.8 mg/dL 8.8-10.2 11/20/2018 11/20/2018 1:13pm 1:38pm Total Protein 8.6 g/dL 6.6-8.7 11/20/2018 11/20/2018 1:13pm 1:38pm Albumin 3.7 g/dL 3.5-5.2 11/20/2018 11/20/2018 1:13pm 1:38pm Globulin 4.9 gm/dL 11/20/2018 11/20/2018 1:13pm 1:38pm Albumin/Globulin 0.8 >1.0 11/20/2018 11/20/2018 Ratio 1:13pm 1:38pm Total Bilirubin 0.8 mg/dL 0.0-1.2 11/20/2018 11/20/2018 1:13pm 1:38pm Aspartate Amino 18 U/L 15-40 11/20/2018 11/20/2018 Transf (AST/SGOT) 1:13pm 1:38pm Alanine 24 U/L 0-41 11/20/2018 11/20/2018 Aminotransferase 1:13pm 1:38pm (ALT/SGPT) DR-Otf-M-Type 1574 pg/mL H 0-450 11/20/2018 11/20/2018 Natriuretic 1:13pm 1:43pm Peptide Total Alkaline 71 U/L 40-130 11/20/2018 11/20/2018 Phosphatase 1:13pm 1:38pm Creatine Kinase 68 U/L 20-200 11/20/2018 11/20/2018 1:13pm 1:38pm Troponin I < 0.30 ng/mL 0.0-0.5 11/20/2018 11/20/2018 Published clinical studies have shown elevations of cTnI in 1:13pm 1:43pm patients with myocardial injury, as seen in unstable angina pectoris, cardiac contusions, and heart transplants. Elevations have also been seen in patients with rhabdomyolysis and polymyositis. Elevated troponin levels point to myocardial injury, but are not necessarily indicative of an ischemic mechanism. The term OR should be used when there is evidence [...] examination and other findings. Creatine Kinase MB 1.7 ng/ml 0.0-3.6 11/20/2018 11/20/2018 1:13pm 1:43pm DIAGNOSTIC CITERIA: CKMB CKMB RELATIVE INDEX SUGGESTIVE OF NON-AMI < or=5 N/A BERG ZONE (INCONCLUSIVE) > 5 < or=4 SUGGESTIVE OF AMI >5 > 4 Procedures Procedure Status Date Provider(s) X-ray of chest, single view Completed 11/20/18 XAVIER BURNS MD Computed tomography angiography of chest for Completed 11/20/18 XAVIER BURNS MD pulmonary embolism Encounters Encounter Location Arrival/Admit Date Discharge/Depart Date Attending Provider Departed [place] 11/20/18 12:48pm 11/20/18 5:35pm XAVIER BURNS [facility] Recent Diagnosis
--- OUTSIDE RECORDS SUMMARY | 2019-01-23 10:06 | XMS REPORT | Continuity of Care Document ---
:1935 Author Organization [facility] Address [address] [place] [address] Phone Unavailable Care Team Providers Name Role Phone JENNYFER RICO NP Primary Care Physician Insurance Providers Guarantor Tomas Suárez Address [address] [place] [address] Email NONE Payer [facility] Policy Number [id number] Subscriber's Name Tomas Suárez Relationship Self / Same As Patient Group Number [id number] Group Name NA Advance Directives Directive Response Recorded Date/Time Advance Directives No 09/17/15 1:23pm Advance Directive on File No 11/29/18 4:41pm Directive to Physicians/Living Will No 09/17/15 1:23pm Health Care Proxy No 09/17/15 1:23pm Organ Donor No 09/17/15 1:23pm Medical Power of Coating Line Worker No 09/17/15 1:23pm Patient/Family Given Education Material R/T Y - 11/29/18...ELG 11/29/18 4: 41pm Directives? Chief Complaint and Reason for Visit Chief Complaint General Complaint Reason for Visit [id number] CHF (congestive heart failure) Problems Medical Problem Onset Date Status A-fib [...] (no symptoms from ordinary activities) Unknown Acute Cardiac volume overload Unknown Acute Cholelithiasis Unknown Acute DVT (deep [...] Route Directions Days Qty Instructions Start Date Albuterol/Ipratr 1 Puff ORAL Four Times opium (Combivent Daily Respimat *) 1 Ea Inh Allopurinol 1 Tab ORAL Daily 30 Tablet (Zyloprim *) 100 Mg Tab Amiodarone Hcl 200 Mg ORAL Daily ([place]one 200 Mg*) 200 Mg Tab Apixaban 2.5 Mg ORAL Twice A Day 30 Days 60 Tablet (Eliquis *) 2.5 Mg Tab Aspirin (Aspirin 81 Mg ORAL Daily *) 81 Mg Chw Atorvastatin * 1 Tab ORAL Daily 30 Tablet (Lipitor *) 40 Mg Tab Docusate Sodium 50 Mg ORAL Twice A Day (Stool Softener 100 Mg *) 100 Mg Cap Furosemide 40 Mg ORAL Daily (Lasix 40 Mg*) 40 Mg Tab Gabapentin 200 Mg ORAL Twice A Day (Neurontin *) 100 Mg Cap Hydrocodone-Acet 1 Tab ORAL Every 8 Hours aminophen As Needed as 10/325MG * needed for ([place] 10/325MG Pain *) 1 Tab Tab Losartan 1 Tab ORAL Daily 30 Tablet Potassium (Cozaar 100 Mg *) 100 Mg Tab Metoprolol 25 Mg ORAL Twice A Day Tartrate (Lopressor *) 25 Mg Tab Past Home Medications Medication Directions Ordered Status Allopurinol (Zyloprim *) 100 Mg Once Daily Discontinued Tab, 100 Mg Oral Alprazolam (Xanax 0.5 Mg*) 0.5 Mg Bedtime Discontinued Tab, 1 Tab Oral Amiodarone Hcl (Cordorone *) 200 Daily Discontinued Mg Tab, 200 Mg Oral Amlodipine Besylate (Norvasc *) Daily Discontinued 10 Mg Tab, 1 Tab Oral Amoxicillin/Clavulanate Potassium Daily Discontinued (Augmentin *) 875 Mg Tab, 875 Mg Oral Amoxicillin/Clavulanate Potassium Twice A Day Discontinued (Augmentin *) 875 Mg Tab, 1 Tab Oral Apixaban (Eliquis *) 5 Mg Tab, Twice A Day for Afib 03/10/17 Discontinued 2.5 Mg Oral Aspirin 325 Mg Tab, 325 Mg Oral Every 24 Hours 07/07/15 Discontinued Carvedilol (Coreg *) 25 Mg Tab, 1 Twice A Day Discontinued Tab Oral Carvedilol (Coreg *) 6.25 Mg Tab, Twice A Day for Chf 03/10/17 Discontinued 1 Tab Oral Carvedilol (Coreg *) 25 Mg Tab, 1 Twice A Day Discontinued Tab Oral Carvedilol (Coreg *) 12.5 Mg Tab, Twice A Day Discontinued 12.5 Mg Oral Colchicine (Colcrys) 0.6 Mg Tab, Twice A Day as needed for Gout Discontinued 1 Tab Oral Pain Colchicine (Colcrys) 0.6 Mg Tab, Daily Discontinued 1 Tab Oral Furosemide (Lasix 20 Mg*) 20 Mg Twice A Day for Chf 03/10/17 Discontinued Tab, 20 Mg Oral Furosemide (Lasix 40 Mg*) 40 Mg Twice A Day Discontinued Tab, 40 Mg Oral Gabapentin (Neurontin *) 300 Mg Once Daily At Bedtime Discontinued Cap, 300 Mg Oral Hydralazine Hcl (Apresoline *) 50 Three Times A Day Discontinued Mg Tab, 50 Mg Oral Hydralazine Hcl (Apresoline *) 50 Three Times A Day Discontinued Mg Tab, 1 Tab Oral Hydroco/Apap 10/325 , 1 Tab Oral Every 8 Hours As Needed Discontinued Losartan Potassium (Cozaar *) 100 Daily Discontinued Mg Tab, 1 Tab Oral Meloxicam (Mobic *) 15 Mg Tab, 1 Daily for Inflammation 11/20/18 Discontinued Tab Oral Methocarbamol (Robaxin 750 Mg *) Twice A Day for Muscle Spasm 11/20/18 Discontinued 750 Mg Tab, 1 Tab Oral Nitrofurantoin * (Macrobid *) 100 Twice A Day Discontinued Mg Cap, 1 Cap Oral Pantoprazole Sodium (Protonix Ec Daily Discontinued *) 40 Mg Tab, 40 Mg Oral Pregabalin (Lyrica 50 Mg *) 50 Mg Daily for Neuropathy 03/10/17 Discontinued Cap, 50 Mg Oral Pregabalin (Lyrica 200 Mg *) 200 Twice A Day Discontinued Mg Cap, 1 Cap Oral Pregabalin (Lyrica 50 Mg *) 50 Mg Daily Discontinued Cap, 50 Mg Oral Rivaroxaban (Xarelto *) 10 Mg Twice A Day Discontinued Tab, 15 Mg Oral Rivaroxaban (Xarelto *) 20 Mg One Dose At 1700 07/07/15 Discontinued Tab, 20 Mg Oral Sennosides (Senokot *) 8.6 Mg Twice A Day Discontinued Tab, 1 Tab Oral Tamsulosin Hcl (Tamsulosin Hcl Once Daily At Bedtime Discontinued 0.4 Mg (Flomax) *) 0.4 Mg Cap, 1 Cap Oral Tramadol/Apap * (Ultracet Every 6 Hours As Needed for 11/20/18 Discontinued 37.5/325 Mg *) 1 Tab Tab, 1 Tab Pain Oral Warfarin * (Jantoven 1 Mg*) 1 Mg Every Other Day Discontinued Tab, 1 Mg Oral Warfarin * (Jantoven 2.5 Mg*) 2.5 Daily Discontinued Mg Tab, 2.5 Mg Oral Social History Social History Problem Response Recorded Date/Time Onset Date Status Hx Substance Use Treatment No 07/05/2016 4:09pm Not Applicable Not Applicable Hx Alcohol Use No 07/05/2016 4:09pm Not Applicable Not Applicable Hx Physical Abuse No 11/29/2018 4:41pm Not Applicable Not Applicable Smoking Status Start Date Stop Date Former smoker Hospital Discharge Instructions No hospital discharge instruction information available. Plan of Care Discharge Date 11/29/18 9:00pm Forms Provided Prescription Opioid Use Portal Welcome Letter Prescriptions See Medication Section Referrals JENNYFER RICO NP Address: [address] [place] [id number] Functional Status No functional status information available. Allergies, Adverse Reactions, Alerts Allergen Type Severity Reaction Status Last Updated Sulfacetamide ([id number]) Allergy Severe Active 12/19/11 Sulfamethoxazole w/Trimethoprim Allergy Unknown DIZZINESS Active 07/06/16 ([id number]) Clopidogrel ([id number]) Allergy Unknown Active 07/04/15 Immunizations No immunization information available. Vital Signs Acute Vital Signs Vital Response Date/Time Blood Pressure 123/64 mm Hg 11/29/2018 9:33pm Pulse Pulse Rate (adult) 105 beats per minute (60 - 100) 11/29/2018 9:33pm Respiratory Rate 18 breaths per minute (10 - 24) 11/29/2018 9:33pm Temperature Source Oral 11/29/2018 9:33pm Height 6 ft 4 in 11/29/2018 4:41pm Weight 300 lb 11/29/2018 4:41pm Body Mass Index 36.5 kg/m^2 11/29/2018 4:41pm Results Laboratory Results Test Name Result Units Flags Reference Collection Result Comments Date/Time Date/Time White Blood Count 4.5 K/ul 4.0-12.3 11/29/2018 11/29/2018 5:45pm 5:54pm Red Blood Count 3.70 M/ul L 3.80-5.80 11/29/2018 11/29/2018 5:45pm 5:54pm Hemoglobin 10.6 g/dL L 11.7-17.2 11/29/2018 11/29/2018 5:45pm 5:54pm Hematocrit 35.3 % 35.0-51.0 11/29/2018 11/29/2018 5:45pm 5:54pm Mean Corpuscular 95.4 fl 83-100 11/29/2018 11/29/2018 Volume 5:45pm 5:54pm Mean Corpuscular 28.6 pg 26.8-33.4 11/29/2018 11/29/2018 Hemoglobin 5:45pm 5:54pm Mean Corpuscular 30.0 g/dL 30-35 11/29/2018 11/29/2018 Hemoglobin Concent 5:45pm 5:54pm Red Cell 16.1 % H 12.0-14.0 11/29/2018 11/29/2018 Distribution Width 5:45pm 5:54pm Platelet Count 95 K/uL L 175-450 11/29/2018 11/29/2018 5:45pm 5:54pm Mean Platelet 10.4 fL 9.4-12.6 11/29/2018 11/29/2018 Volume 5:45pm 5:54pm Neutrophils (%) 52.7 % 44.7-82.4 11/29/2018 11/29/2018 (Auto) 5:45pm 5:54pm Immature 0.2 % 0.0-0.4 11/29/2018 11/29/2018 Granulocyte % 5:45pm 5:54pm (Auto) Lymphocytes (%) 36.9 % 10.0-50.0 11/29/2018 11/29/2018 (Auto) 5:45pm 5:54pm Monocytes (%) 4.9 % 3.9-13.4 11/29/2018 11/29/2018 (Auto) 5:45pm 5:54pm Eosinophils (%) 4.9 % 0.0-6.4 11/29/2018 11/29/2018 (Auto) 5:45pm 5:54pm Basophils (%) 0.4 % 0.2-1.2 11/29/2018 11/29/2018 (Auto) 5:45pm 5:54pm Neutrophils # 2.34 K/uL 1.78-5.38 11/29/2018 11/29/2018 (Auto) 5:45pm 5:54pm Absolute Immature 0.0 K/uL 0.0-0.03 11/29/2018 11/29/2018 Granulocyte (auto 5:45pm 5:54pm Lymphocytes # 1.6 K/uL 1.32-3.57 11/29/2018 11/29/2018 (Auto) 5:45pm 5:54pm Monocytes # (Auto) 0.22 K/uL L 0.30-0.82 11/29/2018 11/29/2018 5:45pm 5:54pm Eosinophils # 0.22 K/uL 0.04-0.54 11/29/2018 11/29/2018 (Auto) 5:45pm 5:54pm Basophils # (Auto) 0.02 K/uL 0.01-0.08 11/29/2018 11/29/2018 5:45pm 5:54pm Nucleated Red 0 /100 WBC 0-0.2 11/29/2018 11/29/2018 Blood Cells % 5:45pm 5:54pm Nucleated Red 0 K/uL 0 11/29/2018 11/29/2018 Blood Cells # 5:45pm 5:54pm D-Dimer 659 ng/mL H* <500 11/29/2018 11/29/2018 Results have been broadcasted to patient's location and 5:45pm 7:05pm called to ([facility]WIN. By NATHANIEL DANIELLE 11/29/18 @1904 Prothrombin Time 11.3 SECONDS 10.3-12.3 11/29/2018 11/29/2018 5:45pm 6:06pm THERAPEUTIC LEVEL: 1.5 to 1.9 times normal range of PT Prothromb Time 1.03 11/29/2018 11/29/2018 International 5:45pm 6:06pm Recommended therapeutic range for patients receiving Ratio warfarin (coumadin) therapy: INR is 2.0 to 3.0 Recommended range for patients with mechanical prosthetic heart valves: INR is 2.5 to 3.5 Activated Partial 27.3 SECONDS 22.5-37.0 11/29/2018 11/29/2018 Thromboplast Time 5:45pm 6:06pm Random Glucose 136 mg/dL H 82-115 11/29/2018 11/29/2018 5:45pm 6:12pm Blood Urea 32 mg/dL H 8-23 11/29/2018 11/29/2018 Nitrogen 5:45pm 6:12pm Serum Osmolality 279 L 280-300 11/29/2018 11/29/2018 5:45pm 6:12pm Creatinine 2.3 mg/dL H 0.70-1.20 11/29/2018 11/29/2018 5:45pm 6:12pm Glomerular 33.02 L 11/29/2018 11/29/2018 GFR RESULTS ARE REPORTED IN mL/min/1.73m2. Filtration Rate 5:45pm 6:12pm Calc Normal GFR: >60mL/min Moderately decreased GFR: 30-59 mL/min Severely decreased GFR: 15-29 mL/min Kidney Failure (or Dialysis): <15 mL/min The calculated eGFR is not valid for patients younger than 18 years or older than 75 years. BUN/Creatinine 13.9 12-20 11/29/2018 11/29/2018 Ratio 5:45pm 6:12pm Sodium Level 135 mmol/L 135-145 11/29/2018 11/29/2018 5:45pm 6:12pm Potassium Level 4.7 mmol/L 3.5-5.2 11/29/2018 11/29/2018 5:45pm 6:12pm Chloride Level 100 mmol/L 98-108 11/29/2018 11/29/2018 5:45pm 6:12pm Carbon Dioxide 27 mmol/L 21-32 11/29/2018 11/29/2018 Level 5:45pm 6:12pm Anion Gap 12.7 mEq/L 12-20 11/29/2018 11/29/2018 5:45pm 6:12pm Calcium Level 8.8 mg/dL 8.8-10.2 11/29/2018 11/29/2018 5:45pm 6:12pm Total Protein 8.2 g/dL 6.6-8.7 11/29/2018 11/29/2018 5:45pm 6:12pm Albumin 3.7 g/dL 3.5-5.2 11/29/2018 11/29/2018 5:45pm 6:12pm Globulin 4.5 gm/dL 11/29/2018 11/29/2018 5:45pm 6:12pm Albumin/Globulin 0.8 >1.0 11/29/2018 11/29/2018 Ratio 5:45pm 6:12pm Total Bilirubin 0.5 mg/dL 0.0-1.2 11/29/2018 11/29/2018 5:45pm 6:12pm Aspartate Amino 15 U/L 15-40 11/29/2018 11/29/2018 Transf (AST/SGOT) 5:45pm 6:12pm Alanine 10 U/L 0-41 11/29/2018 11/29/2018 Aminotransferase 5:45pm 6:12pm (ALT/SGPT) TW-Igr-I-Type 2859 pg/mL H 0-450 11/29/2018 11/29/2018 Natriuretic 5:45pm 6:13pm Peptide Total Alkaline 75 U/L 40-130 11/29/2018 11/29/2018 Phosphatase 5:45pm 6:12pm Creatine Kinase 81 U/L 20-200 11/29/2018 11/29/2018 5:45pm 6:12pm Troponin I < 0.30 ng/mL 0.0-0.5 11/29/2018 11/29/2018 Published clinical studies have shown elevations of cTnI in 5:45pm 6:13pm patients with myocardial injury, as seen in [...] examination and other findings. Creatine Kinase MB 2.1 ng/ml 0.0-3.6 11/29/2018 11/29/2018 5:45pm 6:13pm DIAGNOSTIC CITERIA: CKMB CKMB RELATIVE INDEX SUGGESTIVE OF NON-AMI < or=5 N/A BERG ZONE (INCONCLUSIVE) > 5 < or=4 SUGGESTIVE OF AMI >5 > 4 Procedures Procedure Status Date Provider(s) EMERGENCY DEPT VISIT Completed 11/20/18 CT ANGIOGRAPHY CHEST Completed 11/20/18 HYDRATION IV INFUSION INIT Completed 11/20/18 X-RAY EXAM CHEST 1 VIEW Completed 11/20/18 COMPLETE CBC W/AUTO DIFF WBC Completed 11/20/18 CREATINE MB FRACTION Completed 11/20/18 ASSAY OF CK (CPK) Completed 11/20/18 PROTHROMBIN TIME Completed 11/20/18 THROMBOPLASTIN TIME PARTIAL Completed 11/20/18 ROUTINE VENIPUNCTURE Completed 11/20/18 ASSAY OF TROPONIN QUANT Completed 11/20/18 COMPREHEN METABOLIC PANEL Completed 11/20/18 FIBRIN DEGRADJ D-DIMER Completed 11/20/18 ASSAY OF NATRIURETIC PEPTIDE Completed 11/20/18 ELECTROCARDIOGRAM TRACING Completed 11/20/18 X-ray of chest, single view Completed 11/20/18 XAVIER BURNS MD Computed tomography angiography of chest Completed 11/20/18 XAVIER BURNS MD for pulmonary embolism X-ray of chest, single view Completed 11/29/18 MARYAN WATKINS MD Encounters Encounter Location Arrival/Admit Date Discharge/Depart Date Attending Provider Departed [place] 11/29/18 4:37pm 11/29/18 9:00pm XAVIER [facility] Emergency [facility] Departed [place] 11/20/18 12:48pm 11/20/18 5:35pm XAVIER [facility] Recent Diagnosis
--- OUTSIDE RECORDS SUMMARY | 2019-01-23 10:06 | XMS REPORT ---
:1935 Author Organization [facility] Address [address] [place] [address] [address] [place] [address] Care Team Providers Name Role Phone Unavailable Unavailable Unavailable Problems This patient has no known problems. Allergies, Adverse Reactions, Alerts This patient has no known allergies or adverse reactions. Medications This patient has no known medications. Encounters Start End Encounter Admission Attending Care Care Encounter Date/Time Date/Time Type Type Clinicians Facility Department ID 2018-11-29 Inpatient [facility] MED [id number] 22:21:00
--- OUTSIDE RECORDS SUMMARY | 2019-01-23 10:08 | XMS REPORT | Continuity of Care Document ---
:1935 Author Organization [facility] Address [address] [place] [address] Phone Unavailable Care Team Providers Name Role Phone JENNYFER RICO [employer] Primary Care Physician Insurance Providers Guarantor Tomas Suárez Address [address] [place] [address] Email NONE Payer [facility] Policy Number [id number] Subscriber's Name Tomas Suárez Relationship Self / Same As Patient Group Number [id number] Group Name NA Advance Directives Directive Response Recorded Date/Time Advance Directives No 09/17/15 1:23pm Advance Directive on File No 01/22/19 10:26am Directive to Physicians/Living Will No 09/17/15 1:23pm Health Care Proxy No 09/17/15 1:23pm Organ Donor No 09/17/15 1:23pm Medical Power of Valve And Regulator Repairer No 09/17/15 1:23pm Chief Complaint and Reason for Visit Chief Complaint Back Pain or Injury Reason for Visit Chronic low back pain Problems Medical Problem Onset Date Status A-fib [...] volume overload Unknown Acute Cholelithiasis Unknown Acute Chronic low back pain Unknown Acute DVT (deep venous thrombosis) Unknown [...] As Needed as 10/325MG * needed for ([place] 10/325MG Pain *) 1 Tab Tab Losartan [...] Applicable Not Applicable Hx Physical Abuse No 01/22/2019 10:26am Not Applicable Not Applicable Smoking Status Start Date Stop Date Former smoker Hospital Discharge Instructions No hospital discharge instruction information available. Plan of Care Discharge Date 01/22/19 1:12pm Instructions/Education Provided Chronic Back Pain, Vemf-[id number] Forms Provided Portal Welcome Letter Prescriptions See Medication Section Referrals JENNYFER RICO NP Address: [address] [place] [address] Functional Status No functional status information available. Allergies, Adverse Reactions, Alerts Allergen Type Severity Reaction Status Last Updated Sulfacetamide ([id number]) Allergy Severe Active 04/27/11 Sulfamethoxazole w/Trimethoprim Allergy Unknown DIZZINESS Active 07/06/16 ([id number]) Clopidogrel ([id number]) Allergy Unknown Active 07/04/15 Immunizations No immunization information available. Vital Signs Acute Vital Signs Vital Response Date/Time Blood Pressure 119/54 mm Hg 01/22/2019 1:08pm Pulse Pulse Rate (adult) 60 beats per minute (60 - 100) 01/22/2019 1:08pm Respiratory Rate 18 breaths per minute (10 - 24) 01/22/2019 1:08pm Temperature Source Oral 01/22/2019 1:08pm Height 6 ft 4 in 01/22/2019 10:26am Weight 306 lb 01/22/2019 10:26am Body Mass Index 37.2 kg/m^2 01/22/2019 10:26am Results Laboratory Results Test Name Result Units Flags Reference Collection Result Comments Date/Time Date/Time D-Dimer 659 ng/mL H* <500 11/29/2018 11/29/2018 Results have been broadcasted to patient's location and 5:45pm 7:05pm called to . By NATHANIEL DANIELLE 11/29/18 @1904 Prothrombin Time 11.3 SECONDS 10.3-12.3 11/29/2018 11/29/2018 5:45pm 6:06pm THERAPEUTIC LEVEL: 1.5 to 1.9 times normal range of PT Prothromb Time 1.03 11/29/2018 11/29/2018 International 5:45pm 6:06pm Recommended therapeutic range for patients receiving Ratio warfarin (coumadin) therapy: INR is 2.0 to 3.0 Recommended range for patients with mechanical prosthetic heart valves: INR is 2.5 to 3.5 Activated 27.3 SECONDS 22.5-37.0 11/29/2018 11/29/2018 Partial 5:45pm 6:06pm Thromboplast Time OM-Wkd-Z-Type 2859 pg/mL H 0-450 11/29/2018 11/29/2018 Natriuretic 5:45pm 6:13pm Peptide Creatine Kinase 81 U/L 20-200 11/29/2018 11/29/2018 [...] indicative of an ischemic mechanism. The term NH should be used when there is evidence [...] clinical examination and other findings. Creatine Kinase 2.1 ng/ml 0.0-3.6 11/29/2018 11/29/2018 MB 5:45pm 6:13pm DIAGNOSTIC CITERIA: CKMB CKMB RELATIVE INDEX SUGGESTIVE OF NON-AMI < or=5 N/A BERG ZONE (INCONCLUSIVE) > 5 < or=4 SUGGESTIVE OF AMI >5 > 4 White Blood 4.7 K/ul 4.0-12.3 01/22/2019 01/22/2019 Count 10:46am 10:53am Red Blood Count 3.88 M/ul 3.80-5.80 01/22/2019 01/22/2019 10:46am 10:53am Hemoglobin 11.5 g/dL L 11.7-17.2 01/22/2019 01/22/2019 10:46am 10:53am Hematocrit 37.2 % 35.0-51.0 01/22/2019 01/22/2019 10:46am 10:53am Mean Corpuscular 95.9 fl 83-100 01/22/2019 01/22/2019 Volume 10:46am 10:53am Mean Corpuscular 29.6 pg 26.8-33.4 01/22/2019 01/22/2019 Hemoglobin 10:46am 10:53am Mean Corpuscular 30.9 g/dL 30-35 01/22/2019 01/22/2019 Hemoglobin 10:46am 10:53am Concent Red Cell 15.9 % H 12.0-14.0 01/22/2019 01/22/2019 Distribution 10:46am 10:53am Width Platelet Count 87 K/uL L 175-450 01/22/2019 01/22/2019 10:46am 10:53am Mean Platelet 9.4 fL 9.4-12.6 01/22/2019 01/22/2019 Volume 10:46am 10:53am Neutrophils (%) 60.4 % 44.7-82.4 01/22/2019 01/22/2019 (Auto) 10:46am 10:53am Immature 0.2 % 0.0-0.4 01/22/2019 01/22/2019 Granulocyte % 10:46am 10:53am (Auto) Lymphocytes (%) 31.4 % 10.0-50.0 01/22/2019 01/22/2019 (Auto) 10:46am 10:53am Monocytes (%) 5.9 % 3.9-13.4 01/22/2019 01/22/2019 (Auto) 10:46am 10:53am Eosinophils (%) 1.9 % 0.0-6.4 01/22/2019 01/22/2019 (Auto) 10:46am 10:53am Basophils (%) 0.2 % 0.2-1.2 01/22/2019 01/22/2019 (Auto) 10:46am 10:53am Neutrophils # 2.85 K/uL 1.78-5.38 01/22/2019 01/22/2019 (Auto) 10:46am 10:53am Absolute 0.0 K/uL 0.0-0.03 01/22/2019 01/22/2019 Immature 10:46am 10:53am Granulocyte (auto Lymphocytes # 1.5 K/uL 1.32-3.57 01/22/2019 01/22/2019 (Auto) 10:46am 10:53am Monocytes # 0.28 K/uL L 0.30-0.82 01/22/2019 01/22/2019 (Auto) 10:46am 10:53am Eosinophils # 0.09 K/uL 0.04-0.54 01/22/2019 01/22/2019 (Auto) 10:46am 10:53am Basophils # 0.01 K/uL 0.01-0.08 01/22/2019 01/22/2019 (Auto) 10:46am 10:53am Nucleated Red 0 /100 WBC 0-0.2 01/22/2019 01/22/2019 Blood Cells % 10:46am 10:53am Nucleated Red 0 K/uL 0 01/22/2019 01/22/2019 Blood Cells # 10:46am 10:53am Urine Color YELLOW 01/22/2019 01/22/2019 11:00am 11:16am Urine Appearance CLEAR CLEAR 01/22/2019 01/22/2019 11:00am 11:16am Urine Glucose NEGATIVE NEGATIVE 01/22/2019 01/22/2019 (UA) 11:00am 11:16am Urine Bilirubin NEGATIVE NEGATIVE 01/22/2019 01/22/2019 11:00am 11:16am Urine Ketones NEGATIVE NEGATIVE 01/22/2019 01/22/2019 11:00am 11:16am Urine Specific 1.010 1.003-1.03 01/22/2019 01/22/2019 [place] 0 11:00am 11:16am Urine Blood TRACE-GERARDO NEGATIVE 01/22/2019 01/22/2019 ED 11:00am 11:16am Urine pH 7.500 5-9 01/22/2019 01/22/2019 11:00am 11:16am Urine Protein NEGATIVE NEGATIVE 01/22/2019 01/22/2019 11:00am 11:16am Urine 0.2 E.U./dL 0.2-1.0 01/22/2019 01/22/2019 Urobilinogen 11:00am 11:16am Urine Nitrate NEGATIVE NEGATIVE 01/22/2019 01/22/2019 11:00am 11:16am Urine Leukocyte NEGATIVE NEGATIVE 01/22/2019 01/22/2019 Esterase 11:00am 11:16am Urine RBC <1 /hpf 0-5 01/22/2019 01/22/2019 11:00am 11:16am Urine WBC 0-5 /hpf 0-5 01/22/2019 01/22/2019 11:00am 11:16am Urine Epithelial 0-5 /hpf 0-5 01/22/2019 01/22/2019 Cells 11:00am 11:16am Urine Bacteria TRACE /hpf None 01/22/2019 01/22/2019 Detect 11:00am 11:16am Urine Culture NO 01/22/2019 01/22/2019 Reflexed 11:00am 11:16am Random Glucose 87 mg/dL 82-115 01/22/2019 01/22/2019 10:46am 11:07am Blood Urea 31 mg/dL H 8-23 01/22/2019 01/22/2019 Nitrogen 10:46am 11:07am Serum Osmolality 284 280-300 01/22/2019 01/22/2019 10:46am 11:07am Creatinine 2.3 mg/dL H 0.70-1.20 01/22/2019 01/22/2019 10:46am 11:07am Glomerular 33.02 L 01/22/2019 01/22/2019 GFR RESULTS ARE REPORTED IN mL/min/1.73m2. Filtration Rate 10:46am 11:07am Calc Normal GFR: >60mL/min Moderately decreased GFR: 30-59 mL/min Severely decreased GFR: 15-29 mL/min Kidney Failure (or Dialysis): <15 mL/min The calculated eGFR is not valid for patients younger than 18 years or older than 75 years. BUN/Creatinine 13.5 04-2801/22/2019 01/22/2019 Ratio 10:46am 11:07am Sodium Level 139 mmol/L 135-145 01/22/2019 01/22/2019 10:46am 11:07am Potassium Level 4.5 mmol/L 3.5-5.2 01/22/2019 01/22/2019 10:46am 11:07am Chloride Level 105 mmol/L 98-108 01/22/2019 01/22/2019 10:46am 11:07am Carbon Dioxide 25 mmol/L 21-32 01/22/2019 01/22/2019 Level 10:46am 11:07am Anion Gap 13.5 mEq/L 04-2801/22/2019 01/22/2019 10:46am 11:07am Calcium Level 9.2 mg/dL 8.8-10.2 01/22/2019 01/22/2019 10:46am 11:07am Total Protein 7.8 g/dL 6.6-8.7 01/22/2019 01/22/2019 10:46am 11:07am Albumin 3.6 g/dL 3.5-5.2 01/22/2019 01/22/2019 10:46am 11:07am Globulin 4.2 gm/dL 01/22/2019 01/22/2019 10:46am 11:07am Albumin/Globulin 0.9 >1.0 01/22/2019 01/22/2019 Ratio 10:46am 11:07am Total Bilirubin 0.5 mg/dL 0.0-1.2 01/22/2019 01/22/2019 10:46am 11:07am Aspartate Amino 16 U/L 15-40 01/22/2019 01/22/2019 Transf 10:46am 11:07am (AST/SGOT) Alanine 12 U/L 0-41 01/22/2019 01/22/2019 Aminotransferase 10:46am 11:07am (ALT/SGPT) Total Alkaline 71 U/L 40-130 01/22/2019 01/22/2019 Phosphatase 10:46am 11:07am Procedures Procedure Status Date Provider(s) EMERGENCY DEPT VISIT Completed 11/29/18 THER/PROPH/DIAG INJ IV PUSH Completed 11/29/18 X-RAY EXAM CHEST 1 VIEW Completed 11/29/18 TX/PRO/DX INJ NEW DRUG ADDON Completed 11/29/18 COMPLETE CBC W/AUTO DIFF WBC Completed 11/29/18 CREATINE MB FRACTION Completed 11/29/18 ASSAY OF CK (CPK) Completed 11/29/18 PROTHROMBIN TIME Completed 11/29/18 THROMBOPLASTIN TIME PARTIAL Completed 11/29/18 ROUTINE VENIPUNCTURE Completed 11/29/18 ASSAY OF TROPONIN QUANT Completed 11/29/18 COMPREHEN METABOLIC PANEL Completed 11/29/18 FIBRIN DEGRADJ D-DIMER Completed 11/29/18 ASSAY OF NATRIURETIC PEPTIDE Completed 11/29/18 ELECTROCARDIOGRAM TRACING Completed 11/29/18 MORPHINE SULFATE INJECTION Completed 11/29/18 X-ray of chest, single view Completed 11/29/18 MARYAN WATKINS MD Computed tomography of abdomen and pelvis Completed 01/22/19 Andrew GREENE DO without contrast Encounters Encounter Location Arrival/Admit Date Discharge/Depart Date Attending Provider Departed [place] 01/22/19 10:19am 01/22/19 1:12pm Andrew GREENE [facility] Departed [place] 11/29/18 4:37pm 11/29/18 9:00pm X[facility] BURNS [facility] Recent Diagnosis
[2019-01-23] MEDS ORDERED: DIAZEPAM 5 MG TABLET ONE (10:09)
[2019-01-23] MEDS ORDERED: MORPHINE 4 MG/ML SYR ONE (10:09)
[2019-01-23] MEDS ORDERED: dexAMETHasone 10 MG/ML VIAL ONE (10:09)
[2019-01-23] MEDS ORDERED: ONDANSETRON 4 MG/2 ML VIAL ONE (10:10)
--- NOTE | 2019-01-23 10:13 | RAD REPORT ---
EXAM DESCRIPTION: CTSpine Lumbar Wo Con01/23/2019 9:36 am CLINICAL HISTORY: Radiculopathy and back pain COMPARISON: None TECHNIQUE: Computed axial tomography lumbar spine was obtained with coronal and sagittal reconstruct ion. All CT scans are performed using dose optimization technique as appropriate and may include automated exposure control or mA/KV adjustment according to patient size. FINDINGS: Laminectomies, bone plug united by anterior screws, pedicular screws united by rods L4-5 Mild posterior subluxation L2 on L3. Slight anterior subluxation L4 on L5 No fracture seen. Disc bulge, ligamentum flavum and facet hypertrophy L3-4. Vacuum phenomena. The thecal sac measures 6 millimeters. Moderate narrowing of the right neural foramina Artifact from the hardware obscures evaluation of the spinal canal distal lumbar spine. Bi-iliac stent IMPRESSION: Negative for a lumbar fracture. 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
[2019-01-23 10:20] LABS: Absolute Lymphocytes (CBC) 1.2 K/uL (0.7-4.9); Basophils % 0.8 % (0-1.3); Hematocrit 34.1 % (39.6-49.0); Lymphocytes % 29.8 % (15.3-44.8); MPV 8.6 fL (7.6-11.3); RBC Red Blood Cell Count 3.67 M/uL (4.33-5.43)
[2019-01-23 10:33] LABS: Albumin 3.2 g/dL (3.4-5.0); Bilirubin Total 0.5 mg/dL (0.2-1.0); Potassium 4.5 mmol/L (3.5-5.1)
--- NOTE | 2019-01-23 10:40 | RAD REPORT ---
EXAM DESCRIPTION: RAD - Pelvis - 01/23/2019 10:31 am CLINICAL HISTORY: PAIN COMPARISON: No comparisons FINDINGS: Hardware is present in the lower lumbar spine. 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 Stent s are placed in both iliac arteries. No acute fracture or dislocation seen.
[2019-01-23 10:55] LABS: Urine Bacteria <20 /HPF (NONE SEEN); Urine Culture Reflex Order NOT NEEDED; Urine RBC <5 /HPF (NONE SEEN)
[2019-01-23 10:55] LABS: Blood Morphology Comment NOT SEEN (NOT SEEN); Platelet Estimate DECR; Urine White Blood Cell Casts OK
--- NOTE | 2019-01-23 12:03 | ER ---
Nurse's Notes [facility] Name: Tomas Suárez Age: 83 yrs Sex: Male : 1935 Arrival Date: 01/23/2019 Time: 08:40 Bed 23 Private MD: Diagnosis: Low back pain;Unspecified kidney failure-chronic;Spondylolysis, lumbar region Presentation: 01/23 08:55 Presenting complaint: Patient states: right low back pain x 2 days, denies urinary sv symptoms. Transition of care: patient was not received from another setting of care. Onset of symptoms was January 21, 2019. Risk Assessment: Do you want to hurt yourself or someone else? Patient reports no desire to harm self or others. Care prior to arrival: None. 08:55 Method Of Arrival: Wheelchair sv 08:55 Acuity: CORNELIUS 4 sv 09:00 Initial Sepsis Screen: Does the patient meet any 2 criteria? No. Patient's initial rb1 sepsis screen is negative. Does the patient have a suspected source of infection? No. Patient's initial sepsis screen is negative. Triage Assessment: 08:55 General: Appears in no apparent distress. uncomfortable, Behavior is calm, cooperative, sv appropriate for age. Pain: Complains of pain in left low back and right low back. Neuro: Level of Consciousness is awake, alert, obeys commands, Gait is steady. Respiratory: Respiratory effort is even, unlabored, Respiratory pattern is regular, symmetrical. Historical: - Allergies: 08:56 Bactrim; sv 08:56 Plavix; sv 08:56 Sulfa (Sulfonamide Antibiotics); sv - Home Meds: 09:00 Ecotrin 81 mg Oral 1 tab once daily [Active]; allopurinol 100 mg Oral tab 1 tab once rb1 daily [Active]; gabapentin 100 mg oral cap 3 caps twice a day [Active]; amiodarone 200 mg Oral tab 1 tab 2 times per day [Active]; atorvastatin 40 mg oral tab 1 tab once daily [Active]; alprazolam 0.5 mg Oral tab 1 tab twice a day [Active]; metoprolol tartrate 25 mg Oral tab 1 tab 2 times per day [Active]; Eliquis 2.5 mg oral tab 1 tab 2 times per day [Active]; metolazone 5 mg oral tab 1 tab Every 5th day [Active]; - PMHx: 08:56 asbestos; borderline diabetic; CHF; High Cholesterol; Hypertension; neuropathy; sv - PSHx: 08:56 pacemaker; back sx; sv - Immunization history:: Adult Immunizations up to date. - Ebola Screening: : Patient negative for fever greater than or equal to 101.5 degrees Fahrenheit, and additional compatible Ebola Virus Disease symptoms. - Family history:: not pertinent. - Social history:: Smoking status: Patient/guardian denies using tobacco. Screenin:00 Abuse screen: Denies threats or abuse. Nutritional screening: No deficits noted. rb1 Tuberculosis screening: No symptoms or risk factors identified. Fall Risk None identified. Assessment: 09:00 General: Appears uncomfortable, Behavior is calm, cooperative, Denies fever, Denies rb1 injury to his back. Pain: Complains of pain in left low back Pain does not radiate. Pain currently is 10 out of 10 on a pain scale. Quality of pain is described as stabbing, Pain began 2-3 days ago. Neuro: Level of Consciousness is awake, alert, obeys commands, Oriented to person, place, time, situation. Cardiovascular: Capillary refill < 3 seconds is brisk in bilateral fingers. Respiratory: Airway is patent Respiratory effort is even, unlabored, Respiratory pattern is regular, symmetrical. GI: No signs and/or symptoms were reported involving the gastrointestinal system. : No signs and/or symptoms were reported regarding the genitourinary system. Derm: Skin is dry, Skin is normal, Skin temperature is warm. Musculoskeletal: Range of motion: intact in all extremities. 10:00 Reassessment: Patient appears in no apparent distress at this time. No changes from rb1 previously documented assessment. 11:00 Reassessment: Patient appears in no apparent distress at this time. Patient and/or rb1 family updated on plan of care and expected duration. Pain level reassessed. Patient is alert, oriented x 3, equal unlabored respirations, skin warm/dry/pink. Pain /. 12:00 Reassessment: Patient appears in no apparent distress at this time. No changes from rb1 previously documented assessment. 12:05 Reassessment: Discharge pending due to waiting on results. rb1 12:55 Reassessment: Discharge pending due to the provider needing to give the pt. test rb1 results. 13:04 Reassessment: Patient appears in no apparent distress at this time. to speak with pt prior to discharge to home. Vital Signs: 08:56 BP 118 / 53; Pulse 68; Resp 18; Temp 97.4; Pulse Ox 99% ; Weight 138.8 kg; Height 6 ft. sv 4 in. (193.04 cm); Pain 10/10; 09:57 BP 108 / 56; Pulse 60; Resp 19; Pulse Ox 97% on R/A; rb1 10:58 BP 108 / 56; Pulse 63; Resp 20; Temp 97.7(O); Pulse Ox 100% ; lt1 11:00 Pain 6/10; rb1 11:30 BP 115 / 94; Pulse 71; Resp 19; Temp 98.0(O); Pulse Ox 100% on R/A; Pain 5/10; rb1 12:28 BP 124 / 62; Pulse 60; Resp 20; Temp 98.0(O); Pulse Ox 100% on R/A; rb1 08:56 Body Mass Index 37.25 (138.80 kg, 193.04 cm) sv ED Course: 08:40 Patient arrived in ED. as 08:56 Triage completed. sv 08:57 Arm band placed on. sv 09:00 Patient has correct armband on for positive identification. Bed in low position. Call rb1 light in reach. Side rails up X 1. Pulse ox on. NIBP on. 09:01 Sarai Young, ROMY is Primary Nurse. rb1 09:04 Anthony Ch MD is Attending Physician. iman 10:02 Initial lab(s) drawn, by ri, sent to lab. Inserted saline lock: 20 gauge in left dh3 antecubital area, using aseptic technique. Blood collected. 10:18 X-ray completed. Portable x-ray completed in exam room. jr1 10:37 Pelvis XRAY In Process Unspecified. EDMS 12:56 Report given to ROMY Flores. rb1 Administered Medications: 10:20 Drug: morphine 4 mg Route: IVP; Site: left antecubital; rb1 10:35 Follow up: Response: No adverse reaction; Pain is decreased rb1 10:20 Drug: Zofran 4 mg Route: IVP; Site: left antecubital; rb1 10:35 Follow up: Response: No adverse reaction rb1 10:20 Drug: Decadron - Dexamethasone 10 mg Route: IVP; Site: left antecubital; rb1 10:35 Follow up: Response: No adverse reaction rb1 10:20 Drug: Valium 5 mg Route: PO; rb1 10:35 Follow up: Response: No adverse reaction rb1 Outcome: 12:01 Discharge ordered by MD. valerio 13:18 Patient left the ED. sg Signatures: Dispatcher [employer] Mehnaz De Guzman RN RN sv Gay, Steven, RN RN sg Anderson, Corey, MD MD cha Ringgold, Jennifer Tiarra Delgado Rebecca, RN RN rb1 Jose, Coby 3 Apurva Glass [facility]
--- NOTE | 2019-01-23 12:03 | EDPHYS ---
Physician Documentation [facility] Name: Tomas Suárez Age: 83 yrs Sex: Male : 1935 Arrival Date: 01/23/2019 Time: 08:40 Bed 23 Private MD: ED Physician Anthony Ch HPI: 01/23 09:22 This 83 yrs old Black Male presents to ER via Wheelchair with complaints of Back Pain. iman 09:22 The patient presents with pain that is acute, with no known mechanism of injury. The iman symptoms are located in the low back. Onset: The symptoms/episode began/occurred 3 day(s) ago. The pain does not radiate. Associated signs and symptoms: The patient has no apparent associated signs or symptoms. The problem was sustained from unknown cause. Severity of symptoms: At their worst the symptoms were moderate, in the emergency department the symptoms are unchanged. The patient has not experienced similar symptoms in the past. Historical: - Allergies: 08:56 Bactrim; sv 08:56 Plavix; sv 08:56 Sulfa (Sulfonamide Antibiotics); sv - Home Meds: 09:00 Ecotrin 81 mg Oral 1 tab once daily [Active]; allopurinol 100 mg Oral tab 1 tab once rb1 daily [Active]; gabapentin 100 mg oral cap 3 caps twice a day [Active]; amiodarone 200 mg Oral tab 1 tab 2 times per day [Active]; atorvastatin 40 mg oral tab 1 tab once daily [Active]; alprazolam 0.5 mg Oral tab 1 tab twice a day [Active]; metoprolol tartrate 25 mg Oral tab 1 tab 2 times per day [Active]; Eliquis 2.5 mg oral tab 1 tab 2 times per day [Active]; metolazone 5 mg oral tab 1 tab Every 5th day [Active]; - PMHx: 08:56 asbestos; borderline diabetic; CHF; High Cholesterol; Hypertension; neuropathy; sv - PSHx: 08:56 pacemaker; back sx; sv - Immunization history:: Adult Immunizations up to date. - Ebola Screening: : Patient negative for fever greater than or equal to 101.5 degrees Fahrenheit, and additional compatible Ebola Virus Disease symptoms. - Family history:: not pertinent. - Social history:: Smoking status: Patient/guardian denies using tobacco. ROS: 09:22 Constitutional: Negative for fever, chills, and weight loss, Eyes: Negative for injury, iman pain, redness, and discharge, ENT: Negative for injury, pain, and discharge, Neck: Negative for injury, pain, and swelling, Cardiovascular: Negative for chest pain, palpitations, and edema, Respiratory: Negative for shortness of breath, cough, wheezing, and pleuritic chest pain, Abdomen/GI: Negative for abdominal pain, nausea, vomiting, diarrhea, and constipation, : Negative for injury, bleeding, discharge, and swelling, MS/Extremity: Negative for injury and deformity, Skin: Negative for injury, rash, and discoloration, Neuro: Negative for headache, weakness, numbness, tingling, and seizure, Psych: Negative for depression, anxiety, suicide ideation, homicidal ideation, and hallucinations, Allergy/Immunology: Negative for hives, rash, and allergies, Endocrine: Negative for neck swelling, polydipsia, polyuria, polyphagia, and marked weight changes, Hematologic/Lymphatic: Negative for swollen nodes, abnormal bleeding, and unusual bruising. 09:22 Back: Positive for decreased range of motion, pain at rest, pain with movement, of the left low back. Exam: 09:22 Constitutional: This is a well developed, well nourished patient who is awake, alert, iman and in no acute distress. Head/Face: Normocephalic, atraumatic. Eyes: Pupils equal round and reactive to light, extra-ocular motions intact. Lids and lashes normal. Conjunctiva and sclera are non-icteric and not injected. Cornea within normal limits. Periorbital areas with no swelling, redness, or edema. ENT: Nares patent. No nasal discharge, no septal abnormalities noted. Tympanic membranes are normal and external auditory canals are clear. Oropharynx with no redness, swelling, or masses, exudates, or evidence of obstruction, uvula midline. Mucous membranes moist. Neck: Trachea midline, no thyromegaly or masses palpated, and no cervical lymphadenopathy. Supple, full range of motion without nuchal rigidity, or vertebral point tenderness. No Meningismus. Chest/axilla: Normal chest wall appearance and motion. Nontender with no deformity. No lesions are appreciated. Cardiovascular: Regular rate and rhythm with a normal S1 and S2. No gallops, murmurs, or rubs. Normal PMI, no JVD. No pulse deficits. Respiratory: Lungs have equal breath sounds bilaterally, clear to auscultation and percussion. No rales, rhonchi or wheezes noted. No increased work of breathing, no retractions or nasal flaring. Abdomen/GI: Soft, non-tender, with normal bowel sounds. No distension or tympany. No guarding or rebound. No evidence of tenderness throughout. Male : Normal genitalia with no discharge or lesions. Skin: Warm, dry with normal turgor. Normal color with no rashes, no lesions, and no evidence of cellulitis. MS/ Extremity: Pulses equal, no cyanosis. Neurovascular intact. Full, normal range of motion. Neuro: Awake and alert, GCS 15, oriented to person, place, time, and situation. Cranial nerves II-XII grossly intact. Motor strength 5/5 in all extremities. Sensory grossly intact. Cerebellar exam normal. Normal gait. Psych: Awake, alert, with orientation to person, place and time. Behavior, mood, and affect are within normal limits. 09:22 Back: pain, that is mild, that is moderate, ROM is painful, normal spinal alignment noted, CVA tenderness, is absent, vertebral tenderness, is not appreciated, muscle spasm, is appreciated in the left low back, left mid back, right mid back and right low back. Vital Signs: 08:56 BP 118 / 53; Pulse 68; Resp 18; Temp 97.4; Pulse Ox 99% ; Weight 138.8 kg; Height 6 ft. sv 4 in. (193.04 cm); Pain 10/10; 09:57 BP 108 / 56; Pulse 60; Resp 19; Pulse Ox 97% on R/A; rb1 10:58 BP 108 / 56; Pulse 63; Resp 20; Temp 97.7(O); Pulse Ox 100% ; lt1 11:00 Pain 6/10; rb1 11:30 BP 115 / 94; Pulse 71; Resp 19; Temp 98.0(O); Pulse Ox 100% on R/A; Pain 5/10; rb1 12:28 BP 124 / 62; Pulse 60; Resp 20; Temp 98.0(O); Pulse Ox 100% on R/A; rb1 08:56 Body Mass Index 37.25 (138.80 kg, 193.04 cm) sv MDM: 09:04 Patient medically screened. [facility] 09:22 Data reviewed: vital signs, nurses notes, lab test result(s), radiologic studies, CT [facility] scan, plain films. 01/23 09:22 Order name: CBC with Diff [facility] 01/23 09:22 Order name: Comprehensive Metabolic Panel [facility] 01/23 10:26 Order name: CBC with Automated Diff; Complete Time: 11:15 [facility] 01/23 10:29 Order name: Urine Microscopic Only [facility] 01/23 10:29 Order name: Urine Culture [facility] 01/23 10:35 Order name: Comprehensive Metabolic Panel [facility] 01/23 09:22 Order name: CT Lumbar Spine Wo Con [facility] 01/23 09:25 Order name: Pelvis XRAY [facility] 01/23 10:49 Order name: Urine Dipstick--Ancillary (enter results) nc 01/23 11:03 Order name: CBC Smear Scan; Complete Time: 11:15 [facility] 01/23 11:03 Order name: Urine Microscopic Only; Complete Time: 11:15 [facility] 01/23 12:30 Order name: Urine Dipstick-Ancillary [facility] 01/23 13:10 Order name: CT [facility] 01/23 09:22 Order name: Urine Dipstick-Ancillary (obtain specimen); Complete Time: 10:[address] [facility] Administered Medications: 10:20 Drug: morphine 4 mg Route: IVP; Site: left antecubital; rb1 10:35 Follow up: Response: No adverse reaction; Pain is decreased rb1 10:20 Drug: Zofran 4 mg Route: IVP; Site: left antecubital; rb1 10:35 Follow up: Response: No adverse reaction rb1 10:20 Drug: Decadron - Dexamethasone 10 mg Route: IVP; Site: left antecubital; rb1 10:35 Follow up: Response: No adverse reaction rb1 10:20 Drug: Valium 5 mg Route: PO; rb1 10:35 Follow up: Response: No adverse reaction rb1 Disposition: 01/23/19 12:01 Discharged to Home. Impression: Low back pain, Unspecified kidney failure - chronic, Spondylolysis, lumbar region. - Condition is Stable. - Discharge Instructions: Back Pain, Adult, Chronic Back Pain, Musculoskeletal Pain, Back Injury Prevention, [id number], Back Pain, Adult, [id number], Back Exercises, [id number]. - Prescriptions for Tylenol- Codeine #3 300-30 mg Oral Tablet - take 2 tablet by ORAL route every 6 hours As needed; 30 tablet. Valium 5 mg Oral Tablet - take 1 tablet by ORAL route every 8 hours As needed; 20 tablet. Medrol (Ector) 4 mg Oral Tablets, Dose Pack - take 1 tablet by ORAL route as directed - follow package instructions; 1 packet. - Medication Reconciliation Form, Thank You Letter, Antibiotic Education, Prescription Opioid Use form. - Follow up: Private Physician; When: 2 - 3 days; Reason: Recheck today's complaints, Continuance of care, Re-evaluation by your physician. - Problem is new. - Symptoms have improved. Signatures: Dispatcher [employer] EDMehnaz Garcia RN RN sv Gay, Steven, RN RN sg Anderson, Corey, MD MD cha Barber, Rebecca, RN RN rb1 Corrections: (The following items were deleted from the chart) 12:02 12:01 01/23/2019 12:01 Discharged to Home. Impression: Low back pain; Unspecified iman kidney failure - chronic. Condition is Stable. Forms are Medication Reconciliation Form, Thank You Letter, Antibiotic Education, Prescription Opioid Use. Follow up: Private Physician; When: 2 - 3 days; Reason: Recheck today's complaints, Continuance of care, Re-evaluation by your physician. Problem is new. Symptoms have improved. [facility] 13:18 12:02 01/23/2019 12:01 Discharged to Home. Impression: Low back pain; Unspecified sg kidney failure - chronic; Spondylolysis, lumbar region. Condition is Stable. Discharge Instructions: Back Pain, Adult, Chronic Back Pain, Musculoskeletal Pain, Back Injury Prevention, [id number], Back Pain, Adult, Jjzp-[id number], Back Exercises, [id number]. Forms are Medication Reconciliation Form, Thank You Letter, Antibiotic Education, Prescription Opioid Use. Follow up: Private Physician; When: 2 - 3 days; Reason: Recheck today's complaints, Continuance of care, Re-evaluation by your physician. Problem is new. Symptoms have improved. iman
[2019-01-23 12:27] LABS: Urine Blood TRACE (NEG); Urine Glucose NEGATIVE (NEG); Urine Protein NEGATIVE (NEG); Urine pH 6.5 (5.0-7.0)
[2019-01-23 13:33] VITALS: O2SAT 100
[2019-01-23 13:36] VITALS: TEMP 98
[2019-01-23 13:37] VITALS: BP 124/62
== END 2019-01-23 13:18 | disposition home or self-care (01) ==
LOC: ER 08:37
DX: M47.896 Other spondylosis, lumbar region (principal); I13.0 Hypertensive heart and chronic kidney disease with heart failure and stage 1 through stage 4 chronic kidney disease, or unspecified chronic kidney disease; N18.9 Chronic kidney disease, unspecified; I50.9 Heart failure, unspecified; E78.00 Pure hypercholesterolemia, unspecified; Z79.01 Long term (current) use of anticoagulants; Z88.1 Allergy status to other antibiotic agents; Z88.2 Allergy status to sulfonamides; Z88.8 Allergy status to other drugs, medicaments and biological substances; Z95.0 Presence of cardiac pacemaker
CPT/HCPCS: 87088; 85025; 87086; 36415; 80053; 72131; 72170; 96375; 96374; 99284; J1100; J2405; 81003; 81015

== ENCOUNTER 2019-02-16 09:19 | Emergency (ER) | payer OTHER ==
--- NOTE | 2019-02-16 10:58 | RAD REPORT ---
EXAM DESCRIPTION: RAD - Chest Single View - 02/16/2019 10:31 am CLINICAL HISTORY: Abdominal pain, abdominal distention, left upper quadrant pain COMPARISON: Portable chest January 2017 TECHNIQUE: AP portable chest image was obtained 1026 hours . FINDINGS: No peripheral mass or focal consolidations seen. Large body habitus and portable technique are limiting. Lung markings and central vasculature are mildly prominent but similar to January mparison exam. Trachea is midline. Left subclavian pacemaker in place. Heart size is upper normal, si milar to comparison. No measurable pleural effusion and no pneumothorax. No acute bony abnormality se en. No acute aortic findings suspected. IMPRESSION: Chest examination is not substantially different from the January 27 comparison. Heart, vasculature and lung markings are mildly prominent. A minimal failure or volume overload not e xcluded.
[2019-02-16 11:02] LABS: Basophils % 0.9 % (0-1.3); Hematocrit 35.8 % (39.6-49.0); Lymphocytes % 24.9 % (15.3-44.8); MPV 9.2 fL (7.6-11.3); RBC Red Blood Cell Count 3.86 M/uL (4.33-5.43)
[2019-02-16 11:12] LABS: Albumin 3.5 g/dL (3.4-5.0); Bilirubin Direct 0.2 mg/dL (0-0.2); Bilirubin Total 0.5 mg/dL (0.2-1.0); Magnesium 1.8 mg/dL (1.8-2.4); Potassium 3.9 mmol/L (3.5-5.1); Protein, Total 8.1 g/dL (6.4-8.2); Troponin (Emerg Dept Use Only) 0.2 ng/mL (0.0-0.045)
[2019-02-16 11:26] LABS: Protime INR 1.31
[2019-02-16] MEDS ORDERED: FUROSEMIDE 20 MG/ 2ML VIAL ONE (11:29)
[2019-02-16] MEDS ORDERED: FENTANYL CITR 100 MCG/2 ML ONE (11:30)
--- NOTE | 2019-02-16 11:36 | EKG ---
Test Date: 2019-02-16 Test Time: 10:22:58 Cytometry Technologist: DANIEL MEASUREMENT RESULTS: Intervals: Rate: 63 NM: 302 QRSD: 140 QT: 454 QTc: 464 Bryant: P: 65 NM: 302 QRS: -6 T: 266 INTERPRETIVE STATEMENTS: Atrial-paced rhythm with prolonged AV conduction Right bundle branch block T wave abnormality, consider inferolateral ischemia Abnormal ECG Compared to ECG 01/27/2017 15:23:20 Right bundle-branch block now present T-wave abnormality now present Possible ischemia now present Electronically Signed On 02-16-19 11:35:23 CDT by Jose Armando Tapia
--- NOTE | 2019-02-16 11:59 | RAD REPORT ---
EXAM DESCRIPTION: US - Renal Ultrasound-Complete - 02/16/2019 11:48 am CLINICAL HISTORY: Abdominal pain, flank pain COMPARISON: None. FINDINGS: The right kidney measures grossly 10 x 5 cm in size. The left kidney measures also 10 x 5 cm and gross measurement. Cortical thickness appears to be normal. Hydronephrosis is not suspected. Overall kidney visualization is suboptimal. Body habitus and significant rib shadowing limited visual ization. No bladder wall thickening or mass. No intraluminal stone or mass. IMPRESSION: No hydronephrosis is identifiable. Assessment of the kidneys is considered inadequate fo r full visualization due to body habitus and rib shadowing FX. Follow-up CT imaging could be performed if there are continued concerns for a renal abnormality. No bladder abnormality.
--- NOTE | 2019-02-16 12:17 | RAD REPORT ---
EXAM DESCRIPTION: CT - Chest Abd Pelvis Wo Con - 02/16/2019 12:06 pm CLINICAL HISTORY: Chest and abdomen pain. abd pain COMPARISON: Spine Lumbar Wo Con dated 01/23/2019 TECHNIQUE: A limited noncontrast study was performed. All CT scans are performed using dose optimization technique as appropriate and may include automated exposure control or mA/KV adjustment according to patient size. FINDINGS: Mild linear subsegmental atelectasis is present in the right lung base. No focal pulmonary infiltrate or mass.No pleural or pericardial effusion.Mildly prominent mediastinal lymph nodes seen, nonspecific but favored to be reactive in etiology. The liver, spleen, pancreas, adrenal glands and kidneys are within normal limits. Cholelithiasis. No bowel obstruction, free air, free fluid or abscess. The appendix is not identified as a discrete s tructure, however, no secondary findings of appendicitis are identified. No pathologic lymphadenopa thy in the abdomen or pelvis. IVC filter is present. Aortobifemoral bypass is present. Moderate spondylosis involving the lumbar sp ine with postsurgical hardware in place. IMPRESSION: No acute abnormality detected. Cholelithiasis.
[2019-02-16 13:39] LABS: Urine Blood 2+ (NEG); Urine Glucose NEGATIVE (NEG); Urine Protein NEGATIVE (NEG); Urine pH 5.5 (5.0-7.0)
[2019-02-16 13:55] LABS: Platelet Estimate DECR
[2019-02-16 13:56] LABS: Elliptocytes 1+; Ovalocytes 1+; Poikilocytosis 1+
--- NOTE | 2019-02-16 14:02 | ER ---
Nurse's Notes [facility] Name: Tomas Suárez Age: 83 yrs Sex: Male : 1935 Arrival Date: 02/16/2019 Time: 09:21 Bed 18 Private MD: Diagnosis: Chronic renal failure;Unspecified abdominal pain;Low back pain;Fluid overload Presentation: 02/16 09:39 Presenting complaint: Patient states: LUQ pain and L low back pain that began 4-5 days ss ago. Denies N/V/D. Transition of care: patient was not received from another setting of care. Onset of symptoms was February 11, 2019. Risk Assessment: Do you want to hurt yourself or someone else? Patient reports no desire to harm self or others. Initial Sepsis Screen: Does the patient meet any 2 criteria? No. Patient's initial sepsis screen is negative. Does the patient have a suspected source of infection? No. Patient's initial sepsis screen is negative. Care prior to arrival: None. 09:39 Method Of Arrival: Ambulatory ss 09:39 Acuity: CORNELIUS 3 ss Historical: - Allergies: 09:41 Bactrim; ss 09:41 Plavix; ss 09:41 Sulfa (Sulfonamide Antibiotics); ss - Home Meds: 09:41 allopurinol 100 mg Oral tab 1 tab once daily [Active]; alprazolam 0.5 mg Oral tab 1 tab ss twice a day [Active]; Ecotrin 81 mg Oral 1 tab once daily [Active]; atorvastatin 40 mg Oral tab 1 tab once daily [Active]; amiodarone 200 mg Oral tab 1 tab 2 times per day [Active]; Eliquis 2.5 mg Oral tab 1 tab 2 times per day [Active]; metolazone 5 mg Oral tab 1 tab every 5th day [Active]; gabapentin 100 mg Oral cap 3 caps twice a day [Active]; metoprolol tartrate 25 mg Oral tab 1 tab 2 times per day [Active]; - PMHx: 09:41 asbestos; borderline diabetic; CHF; High Cholesterol; Hypertension; neuropathy; ss - PSHx: 09:41 pacemaker; back sx; ss - Immunization history:: Adult Immunizations up to date. - Social history:: Smoking status: Patient/guardian denies using tobacco. - Ebola Screening: : Patient denies exposure to infectious person Patient denies travel to an Ebola-affected area in the 21 days before illness onset. Screenin:58 Abuse screen: Denies threats or abuse. Denies injuries from another. Nutritional sv screening: No deficits noted. Tuberculosis screening: No symptoms or risk factors identified. Fall Risk None identified. Assessment: 10:20 General: Appears in no apparent distress. uncomfortable, well developed, Behavior is sv calm, cooperative, appropriate for age. Pain: Complains of pain in left low back, left mid back, left upper quadrant and left hip Pain currently is 10 out of 10 on a pain scale. Is intermittent. Neuro: Level of Consciousness is awake, alert, obeys commands, Oriented to person, place, time, situation, Moves all extremities. Full function. Respiratory: Respiratory effort is even, unlabored, Respiratory pattern is regular, symmetrical. GI: Abdomen is obese, Abd is soft and non tender X 4 quads. Derm: Skin is normal. 11:30 Reassessment: Patient appears in no apparent distress at this time. No changes from sv previously documented assessment. Patient and/or family updated on plan of care and expected duration. Pain level reassessed. Patient is alert, oriented x 3, equal unlabored respirations, skin warm/dry/pink. 12:30 Reassessment: Patient appears in no apparent distress at this time. No changes from sv previously documented assessment. Patient and/or family updated on plan of care and expected duration. Pain level reassessed. Patient is alert, oriented x 3, equal unlabored respirations, skin warm/dry/pink. 13:51 Reassessment: Vaishali TECHNICAL HEALTHCARE CONSULTANT at bedside speaking of results. sv 14:20 Reassessment: Patient appears in no apparent distress at this time. Patient and/or sv family updated on plan of care and expected duration. Pain level reassessed. Patient is alert, oriented x 3, equal unlabored respirations, skin warm/dry/pink. Patient denies pain at this time. Patient states feeling better. Patient states symptoms have improved. Vital Signs: 09:41 BP 124 / 49; Pulse 63; Resp 17; Temp 97.3(TE); Pulse Ox 100% on R/A; Weight 138.8 kg; ss Height 6 ft. 4 in. (193.04 cm); Pain 10/10; 11:00 BP 142 / 60; Pulse 70; Resp 16; Pulse Ox 99% ; sv 12:37 BP 153 / 68 LA Sitting (auto/lg); Pulse 68; Resp 14; Pulse Ox 99% ; sv 12:42 BP 149 / 77 RA Sitting (auto/lg); Pulse 60; Resp 18; Pulse Ox 99% ; sv 13:35 BP 166 / 73; Pulse 62; Resp 15; Pulse Ox 99% ; sv 09:41 Body Mass Index 37.25 (138.80 kg, 193.04 cm) ED Course: 09:21 Patient arrived in ED. as 09:40 Triage completed. ss 09:41 Arm band placed on right wrist. ss 09:58 Mehnaz Page, RN is Primary Nurse. sv 09:58 Patient has correct armband on for positive identification. Bed in low position. Call sv light in reach. Adult w/ patient. Door closed. Head of bed elevated. 10:08 Vaishali Moss FNP-C is [facility]. snw 10:08 Conor Swann MD is Attending Physician. snw 10:30 Missed attempt(s): 22 gauge in left antecubital area. Bleeding controlled, band aid sv applied, catheter tip intact. 10:32 XRAY Chest (1 view) In Process Unspecified. EDMS 10:39 EKG done, by technology sales consultant. reviewed by Vaishali FRANKLIN. at1 10:40 Accessed peripheral vein via ultrasound, utilizing dynamic ultrasound technique using sv 20G Nexia IV catheter ,sterile technique, per hospital protocol. Clean \T\ dry. Dressing intact. Good blood return. Flushes easily. 10:40 Initial lab(s) drawn, by me, sent to lab. sv 11:35 Patient taken to ultrasound. via stretcher. sv 11:48 US Rp Exam Complete In Process Unspecified. EDMS 12:06 Chest Abd Pelvis Wo Con In Process Unspecified. EDMS 12:20 Prajapati cath inserted, using sterile technique, 16 Fr., by me, balloon inflated, to sv gravity drainage, returned clear yellow urine. Patient tolerated well. 12:30 Awaiting disposition, Awaiting re-evaluation by ER provider. sv 13:35 Awaiting disposition, Awaiting re-evaluation by ER provider. sv 14:20 IV discontinued, intact, bleeding controlled, No redness/swelling at site. Pressure sv dressing applied. 14:57 No provider procedures requiring assistance completed. sv Administered Medications: 12:18 Drug: fentaNYL (PF) 25 mcg Route: IVP; Site: right forearm; sv 13:00 Follow up: Response: No adverse reaction; Pain is decreased; RASS: Alert and Calm (0) sv 12:32 Drug: Lasix 20 mg Route: IVP; Site: right forearm; sv 12:39 Follow up: Response: No adverse reaction sv Output: 13:30 Urine: 800ml (Prajapati); Total: 800ml. sv Outcome: 14:01 Discharge ordered by . snw 14:24 Patient left the ED. ss 14:24 Discharged to home ambulatory, with family. sv 14:24 Condition: stable 14:24 Discharge instructions given to patient, family, Instructed on discharge instructions, follow up and referral plans. Demonstrated understanding of instructions, follow-up care. Signatures: Dispatcher [employer] EDMehnaz Garcia RN RN Vaishali Moss, UPHOLSTERY MECHANIC-C UPHOLSTERY MECHANIC-CsnTiarra Herndon Shelby, RN RN Vicky Doherty, abrasive worker EKG Tat1 Corrections: (The following items were deleted from the chart) 12:43 12:37 BP 153 / 68; Pulse 68bpm; Resp 14bpm; Pulse Ox 99%; sv sv 12:45 10:30 Initial lab(s) drawn, by me, sent to lab. sv sv
--- NOTE | 2019-02-16 14:02 | EDPHYS ---
Physician Documentation [facility] Name: Tomas Suárez Age: 83 yrs Sex: Male : 1935 Arrival Date: 02/16/2019 Time: 09:21 Bed 18 Private MD: ED Physician Conor Swann HPI: 02/16 11:57 This 83 yrs old Black Male presents to ER via Ambulatory with complaints of Abdominal snw Pain, Back Pain. 11:57 The patient presents with abdominal pain in the left upper quadrant, in the left lower snw quadrant. Onset: The symptoms/episode began/occurred gradually, 5 day(s) ago, and became persistent. The symptoms radiate to left back. Associated signs and symptoms: none. The symptoms are described as constant. Severity of pain: At its worst the pain was moderate in the emergency department the pain has improved. The patient has experienced similar episodes in the past. last month in ED. Historical: - Allergies: 09:41 Bactrim; ss 09:41 Plavix; ss 09:41 Sulfa (Sulfonamide Antibiotics); ss - Home Meds: 09:41 allopurinol 100 mg Oral tab 1 tab once daily [Active]; alprazolam 0.5 mg Oral tab 1 tab ss twice a day [Active]; Ecotrin 81 mg Oral 1 tab once daily [Active]; atorvastatin 40 mg Oral tab 1 tab once daily [Active]; amiodarone 200 mg Oral tab 1 tab 2 times per day [Active]; Eliquis 2.5 mg Oral tab 1 tab 2 times per day [Active]; metolazone 5 mg Oral tab 1 tab every 5th day [Active]; gabapentin 100 mg Oral cap 3 caps twice a day [Active]; metoprolol tartrate 25 mg Oral tab 1 tab 2 times per day [Active]; - PMHx: 09:41 asbestos; borderline diabetic; CHF; High Cholesterol; Hypertension; neuropathy; ss - PSHx: 09:41 pacemaker; back sx; ss - Immunization history:: Adult Immunizations up to date. - Social history:: Smoking status: Patient/guardian denies using tobacco. - Ebola Screening: : Patient denies exposure to infectious person Patient denies travel to an Ebola-affected area in the 21 days before illness onset. ROS: 11:56 Constitutional: Negative for fever, chills, and weight loss, Eyes: Negative for injury, snw pain, redness, and discharge, ENT: Negative for injury, pain, and discharge, Neck: Negative for injury, pain, and swelling, Cardiovascular: Negative for chest pain, palpitations, and edema, Respiratory: Negative for shortness of breath, cough, wheezing, and pleuritic chest pain, : Negative for injury, bleeding, discharge, and swelling, MS/Extremity: Negative for injury and deformity, Skin: Negative for injury, rash, and discoloration, Neuro: Negative for headache, weakness, numbness, tingling, and seizure, Psych: Negative for depression, anxiety, suicide ideation, homicidal ideation, and hallucinations. 11:56 Abdomen/GI: Positive for abdominal pain, Negative for nausea, vomiting, and diarrhea. 11:56 Back: Positive for pain at rest, pain with movement. Exam: 11:55 Constitutional: This is a well developed, well nourished patient who is awake, alert, snw and in no acute distress. Head/Face: Normocephalic, atraumatic. Eyes: Pupils equal round and reactive to light, extra-ocular motions intact. Lids and lashes normal. Conjunctiva and sclera are non-icteric and not injected. Cornea within normal limits. Periorbital areas with no swelling, redness, or edema. ENT: Nares patent. No nasal discharge, no septal abnormalities noted. Tympanic membranes are normal and external auditory canals are clear. Oropharynx with no redness, swelling, or masses, exudates, or evidence of obstruction, uvula midline. Mucous membranes moist. Neck: Trachea midline, no thyromegaly or masses palpated, and no cervical lymphadenopathy. Supple, full range of motion without nuchal rigidity, or vertebral point tenderness. No Meningismus. Chest/axilla: Normal chest wall appearance and motion. Nontender with no deformity. No lesions are appreciated. Cardiovascular: Regular rate and rhythm with a normal S1 and S2. No gallops, murmurs, or rubs. Normal PMI, no JVD. No pulse deficits. + bilateral lower ext edema Respiratory: Lungs have equal breath sounds bilaterally, clear to auscultation and percussion. No rales, rhonchi or wheezes noted. No increased work of breathing, no retractions or nasal flaring. Back: No spinal tenderness. No costovertebral tenderness. Full range of motion. Skin: Warm, dry with normal turgor. Normal color with no rashes, no lesions, and no evidence of cellulitis. MS/ Extremity: Pulses equal, no cyanosis. Neurovascular intact. Full, normal range of motion. Neuro: Awake and alert, GCS 15, oriented to person, place, time, and situation. Cranial nerves II-XII grossly intact. Motor strength 5/5 in all extremities. Sensory grossly intact. Cerebellar exam normal. Normal gait. Psych: Awake, alert, with orientation to person, place and time. Behavior, mood, and affect are within normal limits. 11:55 Abdomen/GI: Inspection: abdomen appears normal, Bowel sounds: normal, Palpation: moderate abdominal tenderness, in the umbilical area, left upper quadrant and left lower quadrant. Vital Signs: 09:41 BP 124 / 49; Pulse 63; Resp 17; Temp 97.3(TE); Pulse Ox 100% on R/A; Weight 138.8 kg; ss Height 6 ft. 4 in. (193.04 cm); Pain 10/10; 11:00 BP 142 / 60; Pulse 70; Resp 16; Pulse Ox 99% ; sv 12:37 BP 153 / 68 LA Sitting (auto/lg); Pulse 68; Resp 14; Pulse Ox 99% ; sv 12:42 BP 149 / 77 RA Sitting (auto/lg); Pulse 60; Resp 18; Pulse Ox 99% ; sv 13:35 BP 166 / 73; Pulse 62; Resp 15; Pulse Ox 99% ; sv 09:41 Body Mass Index 37.25 (138.80 kg, 193.04 cm) MDM: 10:08 Patient medically screened. snw 14:03 Data reviewed: vital signs, nurses notes. Data interpreted: Pulse oximetry: on room air snw is 99 %. Interpretation: normal. Counseling: I had a detailed discussion with the patient and/or guardian regarding: the historical points, exam findings, and any diagnostic results supporting the discharge/admit diagnosis, the presence of at least one elevated blood pressure reading (>120/80) during this emergency department visit, lab results, radiology results, the need for outpatient follow up, to return to the emergency department if symptoms worsen or persist or if there are any questions or concerns that arise at home. Special discussion: Based on the patient's Hx, exam, and Dx evaluation, there is no indication for emergent surgery or inpatient Tx. It is understood by the patient/guardian that if the Sx's persist or worsen they need to return immediately for re-evaluation. Based on the history and exam findings, there is no indication for further emergent testing or inpatient evaluation. I discussed with the patient/guardian the need to see the primary care provider for further evaluation of the symptoms. 02/16 10:09 Order name: Basic Metabolic Panel; Complete Time: 11:20 snw 02/16 10:09 Order name: CBC with Diff snw 02/16 10:09 Order name: LFT's; Complete Time: 11:20 snw 02/16 10:09 Order name: Magnesium; Complete Time: 11:20 snw 02/16 10:09 Order name: NT PRO-BNP; Complete Time: 11:20 snw 02/16 10:09 Order name: PT-INR; Complete Time: 11:32 snw 02/16 10:09 Order name: Troponin (emerg Dept Use Only); Complete Time: 11:20 snw 02/16 10:09 Order name: XRAY Chest (1 view); Complete Time: 11:20 snw 02/16 11:25 Order name: US Rp Exam Complete; Complete Time: 12:06 snw 02/16 11:25 Order name: Chest Abd Pelvis Wo Con; Complete Time: 12:23 EDMS 02/16 12:40 Order name: Urine Dipstick--Ancillary (enter results); Complete Time: 13:44 gm 02/16 13:56 Order name: CBC Smear Scan EDMS 02/16 10:09 Order name: EKG; Complete Time: 10:10 snw 02/16 10:09 Order name: Cardiac monitoring; Complete Time: 11:45 snw 02/16 10:09 Order name: EKG - Nurse/Tech; Complete Time: 11:44 snw 02/16 10:09 Order name: IV Saline Lock; Complete Time: 11:44 snw 02/16 10:09 Order name: Labs collected and sent; Complete Time: 11:44 snw 02/16 10:09 Order name: O2 Per Protocol; Complete Time: 11:44 snw 02/16 10:09 Order name: O2 Sat Monitoring; Complete Time: 11:44 snw 02/16 11:21 Order name: Prajapati; Complete Time: 12:32 snw 02/16 12:36 Order name: Vipul. Order: bilateral blood pressure readings; Complete Time: 12:44 snw Administered Medications: 12:18 Drug: fentaNYL (PF) 25 mcg Route: IVP; Site: right forearm; sv 13:00 Follow up: Response: No adverse reaction; Pain is decreased; RASS: Alert and Calm (0) sv 12:32 Drug: Lasix 20 mg Route: IVP; Site: right forearm; sv 12:39 Follow up: Response: No adverse reaction sv Disposition: 17:25 Co-signature as Attending Physician, Conor Swann MD. Disposition: 02/16/19 14:01 Discharged to Home. Impression: Chronic renal failure, Unspecified abdominal pain, Low back pain, Fluid overload. - Condition is Stable. - Discharge Instructions: Abdominal Pain, Adult, Back Pain, Adult, Heart Failure. - Medication Reconciliation Form, Thank You Letter, Antibiotic Education, Prescription Opioid Use form. - Follow up: Private Physician; When: 2 - 3 days; Reason: Recheck today's complaints, Continuance of care, Re-evaluation by your physician. Follow up: Emergency Department; When: As needed; Reason: Worsening of condition. Signatures: Dispatcher [employer] EDNV Mehnaz Page, ROMY RN Vaishali Lujan, INORGANIC CHEMISTRY PROFESSOR-C INORGANIC CHEMISTRY PROFESSOR-Maria L Ascencio RN RN ss Starr, Gregory, MD MD Corrections: (The following items were deleted from the chart) 11:25 10:10 Angio Aorta For Dissection+CT.RAD.BRZ ordered. EDNV EDMS 13:55 13:53 Manual Differential ordered. [facility] EDMS 14:24 14:01 02/16/2019 14:01 Discharged to Home. Impression: Chronic renal failure; ss Unspecified abdominal pain; Low back pain; Fluid overload. Condition is Stable. Forms are Medication Reconciliation Form, Thank You Letter, Antibiotic Education, Prescription Opioid Use. Follow up: Private Physician; When: 2 - 3 days; Reason: Recheck today's complaints, Continuance of care, Re-evaluation by your physician. Follow up: Emergency Department; When: As needed; Reason: Worsening of condition. snw
[2019-02-16 14:41] VITALS: TEMP 97.3
[2019-02-16 14:42] VITALS: O2SAT 99
[2019-02-16 14:46] VITALS: BP 166/73
[2019-02-16 15:31] LABS: Blood Morphology Comment NOTED (NOT SEEN); Urine White Blood Cell Casts OK
== END 2019-02-16 14:24 | disposition home or self-care (01) ==
LOC: ER 09:19
DX: I13.0 Hypertensive heart and chronic kidney disease with heart failure and stage 1 through stage 4 chronic kidney disease, or unspecified chronic kidney disease (principal); N18.9 Chronic kidney disease, unspecified; E87.70 Fluid overload, unspecified; I50.9 Heart failure, unspecified; R73.03 Prediabetes; R10.9 Unspecified abdominal pain; E78.00 Pure hypercholesterolemia, unspecified; Z79.01 Long term (current) use of anticoagulants; Z88.1 Allergy status to other antibiotic agents; Z88.2 Allergy status to sulfonamides; Z88.8 Allergy status to other drugs, medicaments and biological substances; Z95.0 Presence of cardiac pacemaker
CPT/HCPCS: 93005; 85025; 80048; 36415; 83735; 85610; 80076; 81003; 84484; 83880; 71250; 74176; 71045; 76770; 51702; 96375; 96374; 99285; J1940; J3010

== ENCOUNTER 2019-06-12 15:47 | Observation (INO) | payer OTHER ==
--- OUTSIDE RECORDS SUMMARY | 2019-06-12 15:50 | XMS REPORT ---
:1935 [facility] Address [address] [place] [address] [address] [place] [address] Care Team Providers Name Role Phone Unavailable Unavailable Unavailable Problems This patient has no known problems. Allergies, Adverse Reactions, Alerts This patient has no known allergies or adverse reactions. Medications This patient has no known medications. Encounters Start End Encounter Admission Attending Care Care Encounter Date/Time Date/Time Type Type Clinicians Facility Department ID 2018-11-29 Inpatient [facility] [id number] 22:21:00
--- OUTSIDE RECORDS SUMMARY | 2019-06-12 15:55 | XMS REPORT | Continuity of Care Document ---
:1935 Author Organization [facility] Address [address] [place] [address] Allergies, Adverse Reactions, Alerts Allergen Type Severity Reaction Last Updated Verified Status Sulfacetamide Allergy Severe April 27, Yes Active ([id number]) 2010 Sulfamethoxazole Allergy Unknown DIZZINESS July 06, Yes Active w/Trimethoprim 2016 ([id number]) Clopidogrel ([id number]) Allergy Unknown July 04, Yes Active 2015 Medications Medication Status Dose Units Route Sig Qty Days Start End Instructions Date Date Albuterol/Ipra Active 1 ORAL Four tropium Times Daily Allopurinol Active 1 ORAL Daily 30 Amiodarone Hcl Active 200 ORAL Daily Apixaban Active 2.5 ORAL Twice A 60 30 Day Aspirin Active 81 ORAL Daily Atorvastatin * Active 1 ORAL Daily 30 Docusate Active 50 ORAL Twice A Sodium Day Furosemide Active 40 ORAL Daily Furosemide Discontinu 1 ORAL Daily March [facility] ed for Chf , r 2018 1:08pm Gabapentin Active 200 ORAL Twice A Day Hydrocodone-Ac Active 1 ORAL Every 8 etaminophen Hours 10/325MG * As Needed as needed for Pain Losartan Active 1 ORAL Daily 30 Potassium Metoprolol Active 25 ORAL Twice A Tartrate Day Potassium Discontinu 1 ORAL Daily March [facility] ed for , r , Chf, On 2018 2018 Lasix 1:08pm Allopurinol Discontinu 100 ORAL Once Februar ed Daily y 2016 Alprazolam Discontinu 1 ORAL Bedtime 08 March ed 2017 Amiodarone Hcl Discontinu 200 ORAL Daily February ed 2017 Amlodipine Discontinu 1 ORAL Daily 30 Februar Besylate ed y 2016 Amoxicillin/Cl Discontinu 875 ORAL Daily May avulanate ed 2018 Amoxicillin/Cl Discontinu 1 ORAL Twice A Februar avulanate ed Day y 2015 Apixaban Discontinu 2.5 ORAL Twice A 60 March ed Day for , Afib 2016 2017 10:46am Aspirin Discontinu 325 ORAL Every 30 June Februar ed 24 , y 26, Hours 2015 2016 2:03pm Carvedilol Discontinu 1 ORAL Twice A 60 May ed Day 2018 Carvedilol Discontinu 1 ORAL Twice A 60 March ed Day for , Chf 2016 2017 10:46am Carvedilol Discontinu 1 ORAL Twice A 180 Novembe ed Day r 2016 Carvedilol Discontinu 12.5 ORAL Twice A Februar ed Day y 2016 Colchicine Discontinu 1 ORAL Twice A 30 November ed Day as , needed 2018 for Gout Pain Colchicine Discontinu 1 ORAL Daily 30 Februar ed y 2015 Furosemide Discontinu 20 ORAL Twice A 60 March Novembe ed Day for , r , Chf 2016 2017 10:46am Furosemide Discontinu 40 ORAL Twice A Novembe ed Day r 2016 Gabapentin Discontinu 300 ORAL Once Februar ed Daily y , At 2016 Bedtime Hydralazine Discontinu 50 ORAL Three Februar Hcl ed Times A y 2016 Hydralazine Discontinu 1 ORAL Three 90 Februar Hcl ed Times A y 2015 Hydroco/Apap Discontinu 1 ORAL Every 8 90 Novembe ed Hours r , As 2017 Needed Losartan Discontinu 1 ORAL Daily 30 Novembe Potassium ed r 2016 Meloxicam Discontinu 1 ORAL Daily 30 06 December Debra ed for , , Inflamm 2018 2019 ation 5:25pm Methocarbamol Discontinu 1 ORAL Twice A 60 November ed Day for , , Muscle 2018 2019 Spasm 5:25pm Nitrofurantoin Discontinu 1 ORAL Twice A 20 November * ed Day 2018 Pantoprazole Discontinu 40 ORAL Daily Februar Sodium ed y 2016 Pregabalin Discontinu 50 ORAL Daily March ed for , , Neuropa 2016 2018 thy 10:46am Pregabalin Discontinu 1 ORAL Twice A 60 Novembe ed Day r 2016 Pregabalin Discontinu 50 ORAL Daily Februar ed y 2015 Rivaroxaban Discontinu 15 ORAL Twice A Debra ed Day 2018 Rivaroxaban Discontinu 20 ORAL One June Februar ed Dose At 28, y , 1700 2015 2016 2:03pm Sennosides Discontinu 1 ORAL Twice A 40 Februar ed Day y 2015 Tamsulosin Hcl Discontinu 1 ORAL Once 08 March ed Daily , At 2017 Bedtime Tramadol/Apap Discontinu 1 ORAL Every 6 November * ed Hours , , As 2018 2019 Needed 5:25pm for Pain Warfarin * Discontinu 1 ORAL Every May ed Other 2018 Warfarin * Discontinu 2.5 ORAL Daily May ed 2018 Problems Active Problems Medical Problem Onset Date Status A-fib Active ARF (acute renal failure) Active Acute gouty arthritis Active Acute right hip pain Active Anxiety Active Arrhythmia Active Arthritic-like pain Active Asbestos exposure Active Asbestosis Active Atrial fibrillation with tachycardic ventricular rate Active Atrial fibrillation with tachycardic ventricular rate Active Atypical chest pain Active CHF (congestive heart failure) Active CKD (chronic kidney disease) Active CVA (cerebral vascular accident) Active Chest pain Active Chronic back pain Active Chronic renal disease Active Elevated troponin Active Flank pain, acute Active Gouty arthritis Active Gouty arthritis Active HLD (hyperlipidemia) Active HTN (hypertension) Active Hypotension Active Left shoulder pain Active Near syncope February, Active TIA (transient ischemic attack) Active Tachycardia Active UTI (urinary tract infection) Active Ventricular pacing seen on electrocardiogram Active Inactive/Resolved Problems Medical Problem Onset Date Status Acute rhinosinusitis Resolved Altered mental state Resolved Anticoagulation adequate with anticoagulant therapy Resolved Arm bruise Resolved CAD (coronary artery disease) Resolved CHD (congenital heart disease) Resolved CHF NYHA class I (no symptoms from ordinary activities) Resolved CHF exacerbation Resolved Cardiac volume overload Resolved Cholelithiasis Resolved Chronic CHF (congestive heart failure) Resolved Chronic low back pain Resolved DVT (deep venous thrombosis) Resolved Dyspnea Resolved Hematuria Resolved Hx pulmonary embolism Resolved Left-sided chest wall pain Resolved Lower GI bleed Resolved Lower extremity edema Resolved Muscle pain Resolved Non-cardiac chest pain Resolved Peripheral edema Resolved Pulmonary congestion Resolved Renal insufficiency Resolved Renal insufficiency Resolved Right-sided chest wall pain Resolved SOB (shortness of breath) Resolved Stage II pressure ulcer of sacral region Resolved Steroid side effects Resolved Superficial bruising of abdominal wall Resolved Syncope Resolved Trapezius strain Resolved Urinary tract infection with pyuria Resolved Procedures Procedure Date Performed Status US EXAM ABDO BACK WALL GARCIA April 12, 2019 completed US renal April 12, 2019 completed Relevant Diagnostic Tests and/or Laboratory Data Laboratory Results Test Date/Time Result Interpretation Reference Result Performing Range Comment Site White Blood Count May 4.5 4.0-12.3 [facility], [address] 2019 7:[address] [place] [address]54 Red Blood Count Ethel 4.13 3.80-5.80 [facility], [address] 2019 7:[address] [place] [address] 19680 Hemoglobin Ethel 12.8 11.7-17.2 [facility], [address] 2019 7:[address] [place] [address] 13797 Hematocrit Ethel 39.3 35.0-51.0 [facility], [address] 2019 7:[address] [place] [address] [place] [address] Mean Corpuscular Ethel 95.2 83-100 [facility], [address] Volume 2019 7:[address] [place] [address] [place] [address] Mean Corpuscular Ethel 31.0 26.8-33.4 [facility], [address] Hemoglobin 2019 7:[address] [place] [address]306 Mean Corpuscular Ethel 32.6 30-35 [facility], [address] Hemoglobin Concent 2019 7:[address] [place] [address]2727 Red Cell Ethel 16.1 12.0-14.0 [facility], [address] Distribution Width 2019 7:[address] [place] [address] 72150 Platelet Count May 80 175-450 [facility], [address] 2019 7:[address] [place] [address] 15898 Absolute Immature Ethel 2.0 [facility], [address] Platelet Fraction 2019 7:[address] [place] [address] 85583 Immature Platelet Ethel 2.5 0-8 [facility], [address] Fraction 2019 7:[address] [place] [address] 10204 Mean Platelet Ethel 11.0 9.4-12.6 [facility], [address] Volume 2019 7:[address] [place] [address] 52832 Neutrophils (%) Ethel 64.6 44.7-82.4 [facility], [address] (Auto) 2019 7:[address] [place] [address] 40964 Immature Ethel 0.2 0.0-0.4 [facility], [address] Granulocyte % 2019 (Auto) 7:[address] [place] [address] 59048 Lymphocytes (%) May 27.6 10.0-50.0 [facility], [address] (Auto) 2019 7:[address] [place] [address] 16256 Monocytes (%) Ethel 3.8 3.9-13.4 [facility], [address] [place] [address] (Auto) 2019 7:13[facility] [address] Eosinophils (%) Ethel 3.6 0.0-6.4 [facility], [address] [place] [address] (Auto) 2019 7:13[facility] [address] Basophils (%) Ethel 0.2 0.2-1.2 [facility], [address] [place] [address] (Auto) 2019 7:13[facility] [address] Neutrophils # Ethel 2.90 1.78-5.38 [facility], [address] [facility] (Auto) 2019 7:13[facility] [address] Absolute Immature Ethel 0.0 0.0-0.03 [facility], [address] [place] [address] Granulocyte (auto 2019 7:13[facility] [address] Lymphocytes # Ethel 1.2 1.32-3.57 [facility], [address] [place] [address] (Auto) 2019 7:13[facility] [address] Monocytes # (Auto) Ethel 0.17 0.30-0.82 [facility], [address] [place] [address] 2019 7:13[facility] [place] [address] Eosinophils # Ethel 0.16 0.04-0.54 [facility], [address] [place] [address] (Auto) 2019 7:13[facility] [place] [address] Basophils # (Auto) Ethel 0.01 0.01-0.08 [facility], [address] [place] [address] 2019 7:13[facility] [address] Nucleated Red Ethel 0 0-0.2 [facility], [address] [place] [address] Blood Cells % 2019 7:13[place] [phone] Nucleated Red Ethel 0 0 [facility], [address] [place] [address] Blood Cells # 2019 7:13[place] [phone] Prothrombin Time May 10.9 10.3-12.3 THERAPEUTIC [facility], [address] [place] [address] 2019 LEVEL: 1.5 11:20pm to 1.9 times [place] [address] normal range of PT Prothromb Time May 1.01 Recommended [facility], [address] [place] [address] International 2019 therapeutic Ratio 11:20pm range for [place] [address] patients receiving warfarin (coumadin) therapy: INR is 2.0 to 3.0Recommend ed range for patients with mechanical prosthetic heart valves: INR is 2.5 to 3.5 Activated Partial Ethel 24.6 22.5-37.0 [facility], 104 Thromboplast Time 2019 11:20pm [place] [address] Urine Color May LT. [facility], 104 2019 YELLOW 10:10pm [place] [address] Urine Appearance May CLEAR CLEAR [facility], 104 2019 10:10pm [place] [address] Urine Glucose (UA) May NEGATIVE NEGATIVE [facility], 104 2019 10:10pm [place] [address] Urine Bilirubin Ethel NEGATIVE NEGATIVE [facility], 104 2019 10:10pm [place] [address] Urine Ketones May NEGATIVE NEGATIVE [facility], [address] [facility] 2019 10:10pm [place] [address] Urine Specific May 1.010 1.003-1.03 [facility], 104 [place] 2019 0 10:10pm [facility] [address] Urine Blood May SMALL NEGATIVE [facility], 104 2019 10:10pm [place] [address] Urine pH May 6.500 5-9 [facility], 104 2019 10:10pm [place] [address] Urine Protein May NEGATIVE NEGATIVE [facility], [address] [facility] 2019 10:10pm [place] [address] Urine Urobilinogen May 0.2 0.2-1.0 [facility], 104 2019 10:10pm [place] [address] Urine Nitrate May NEGATIVE NEGATIVE [facility], 104 2019 10:10pm [place] [address] Urine Leukocyte May NEGATIVE NEGATIVE [facility], [address] [facility] Esterase 2019 10:10pm [place] [address] Urine RBC May 0-3 0-5 [facility], 104 2019 10:10pm [place] [address] Urine WBC May 0-2 0-5 [facility], [address] [facility] 2019 10:10pm [place] [address] Urine Epithelial May 0-5 0-5 [facility], [address] [facility] Cells 2019 10:10pm [place] [address] Urine Bacteria May None None [facility], [address] [facility] 2019 Detected Detect 10:10pm [facility] [address] Urine Culture May NO [facility], 104 Reflexed 2019 10:10pm [facility] [address] Random Glucose May 134 82-115 [facility], 104 2019 7:13am [facility] [address] Blood Urea May 24 8-23 [facility], 104 Nitrogen 2019 7:13[facility] [address] Serum Osmolality May 284 280-300 [facility], 104 2019 7:13[facility] [address] Creatinine Ethel 1.5 0.70-1.20 [facility], 104 2019 7:13am [facility] [address] Glomerular Ethel 54.08 GFR RESULTS [facility], Filtration Rate 2019 ARE REPORTED Calc 7:13am IN [facility] [address] mL/min/1.73m 2.Normal GFR: >60mL/minMod erately decreased GFR: 30-59 mL/minSevere ly decreased GFR: 15-29 mL/minKidney Failure (or Dialysis): <15 mL/minThe calculated eGFR is not valid for patients younger than 18 years or older than 75 years. BUN/Creatinine May 16.0 12-20 [facility], 104 [facility] 2019 7:13[facility] [address] Sodium Level May 139 135-145 [facility], 104 2019 7:13[facility] [address] Potassium Level May 3.3 3.5-5.2 [facility], 104 2019 7:13[facility] [address] Chloride Level May 102 98-108 [facility], 104 2019 7:13[facility] [address] Carbon Dioxide May 24 21-32 [facility], 104 2019 7:13[facility] [address] Anion Gap May 16.3 12-20 [facility], 104 2019 7:13[facility] [address] Calcium Level May 8.7 8.8-10.2 [facility], 104 2019 7:13[facility] [address] Total Protein May 7.3 6.6-8.7 [facility], 104 2019 7:13[facility] [address] Albumin May 3.4 3.5-5.2 [facility], 104 2019 7:13am [place] [address] Globulin Ethel 3.9 [facility], [address] 2019 7:13[facility] [place] [address] Albumin/Globulin Ethel 0.9 >1.0 [facility], [address] Ratio 2019 7:13[facility] [place] [address] Total Bilirubin Ethel 0.9 0.0-1.2 [facility], [address] 2019 7:13[facility] [address] Aspartate Amino Ethel 16 15-40 [facility], [address] Transf (AST/SGOT) 2019 7:13[facility] [address] Alanine May 11 0-41 [facility], [address] Aminotransferase 2019 (ALT/SGPT) 7:13[facility] [address] Total Alkaline May 58 40-130 [facility], [address] Phosphatase 2019 7:13[facility] [address] Diagnostic Imaging Reports Report Dictated Date/Time Dictated By Status April 12, 2019 2:11pm Brock Goss MD completed Patient: TOMAS SUÁREZ MR#: [id number] : 1935 Ordering DrShanice: ASIF CLINE MD Pt Status : REG CLI Pt Location: [facility] Date/Time: 04/12/19 Primary Care Physician: JENNYFER RICO DNP, TILE MECHANIC HELPER-C Technologist(s): MINDY GARCIA Procedure(s): [id number] US/RENAL ECHOGRAPHY; LIMITED Signed EXAM: Renal Ultrasound INDICATION: Acute renal failure. COMPARISON: CT of the abdomen and pelvis dated 01/22/2019. TECHNIQUE: Transverse and longitudinal images of the kidneys and bladder were obtained. FINDINGS: Right Kidney: Length: 8.6 cm Cortical thickness: 1.48 cm Appearance: Normal echogenicity. Collecting system: No hydronephrosis Stones: None Cyst/Mass: None Left Kidney: Length: 9.3 cm Cortical thickness: 1.26 cm Appearance: Normal echogenicity. Collecting system: No hydronephrosis Stones: None Cyst/Mass: None Bladder: Moderate circumferential thickening of the urinary bladder. No echogenic debris. IMPRESSION: Limited evaluation. No acute sonographic abnormality of the kidneys. Mild decreased cortical thickness of the left kidney. Circumferential thickening of the urinary bladder. Recommend correlation. Signed by: Brock Goss MD on 04/12/2019 2:11 PM Transcribed By: [employer] SIGNED <electronically signed by Brock Goss MD> [id number] Brock Goss MD Health Concerns No known health concerns documented Advance Directives Advance Directive Response Recorded Date/Time Advance Directives No September 17, 2015 1:23pm Advance Directive on File Yes May 25, 2019 1:09am Directive to Physicians/Living Will No September 17, 2015 1:23pm Health Care Proxy No September 17, 2015 1:23pm Organ Donor No September 17, 2015 1:23pm Medical Power of Milk Bottler No September 17, 2015 1:23pm Patient/Family Given Education Material R/T No May 25, 2019 1:09am Directives? Chief Complaint and Reason for Visit Chief Complaint LOWER GI BLEED Reason for Visit Gouty arthritis CVA (cerebral vascular accident) HTN (hypertension) CKD (chronic kidney disease) HLD (hyperlipidemia) Chronic back pain CHF (congestive heart failure) A-fib Anxiety Chronic renal disease Encounters Encounter Location(s) Arrival/Admit Date Discharge/Depart Date Provider(s) Discharged [place] May 25, 2019 May 26, 2019 REJI FRIEND, Inpatient (obs) [facility] 12:13am 3:00pm BRETT Aggarwal MD Ctr Registered [place] April 12, 2019 ASIF CLINE [facility] 1:05pm Ctr Recent Diagnosis Onset Date Gouty arthritis CVA (cerebral vascular accident) HTN (hypertension) CKD (chronic kidney disease) HLD (hyperlipidemia) Chronic back pain CHF (congestive heart failure) A-fib Anxiety Chronic renal disease Assessments Diagnosis Onset Date Resolution Status Gouty arthritis Active CVA (cerebral vascular accident) Active HTN (hypertension) Active CKD (chronic kidney disease) Active HLD (hyperlipidemia) Active Chronic back pain Active CHF (congestive heart failure) Active A-fib Active Anxiety Active Chronic renal disease Active Functional Status No Functional Status information available Goals No Goals Information Available Immunizations No Immunization Information Available Mental Status No Mental Status Information Available Medical Equipment No Medical Equipment Information available Insurance Providers Guarantor Tomas Suárez Address [address] [place] [id number] Contact Info. Home Phone: Payer Policy Id Coverage Id Subscriber's Subscriber Id Effective Expiration Name Date Date [place] [id number] Tomas Suárez [id number] [facility] Careimp Plan of Treatment Future Tests Future scheduled test information is unavailable Pending Tests Pending diagnostic test information is unavailable Future Visits Future appointment information is unavailable Referrals to Other Providers Referral information is unavailable Future Procedures Future procedure information is unavailable Future Medications Future medication information is unavailable Patient Instructions Lower Gastrointestinal Bleeding Social History Smoking Status Status Date of Observation Ex-smoker (finding) May 25, 2019 1:09am Observation Status Observation Response Date of Response Stented coronary artery March 14, 2019 12:25pm Hx Substance Use Treatment No May 25, 2019 1:23am Hx Alcohol Use No May 25, 2019 1:23am Hx Physical Abuse No May 25, 2019 1:23am Assigned Sex Male Vital Signs Vital Reading Result Collection Date/Time Hospital Discharge Instructions Additional Instructions Instructions Physician Documentation [place]ero follow up instructions * If you have any questions or concerns, please contact [phone] and ask for the hospitalist on duty. If you are having a medical emergency, please report to the nearest emergency room in your area. * Access your patient portal or follow up with your PCP regarding any procedures or tests that have not yet been resulted. Follow up with: surgery ([facility]) Follow up appointment in: 7 days Activity on discharge: as tolerated Diet on discharge: as tolerated Condition on discharge: stable
[2019-06-12 16:45] LABS: Absolute Lymphocytes (CBC) 1.3 K/uL (0.7-4.9); Basophils % 0.9 % (0-1.3); Hematocrit 35.6 % (39.6-49.0); Lymphocytes % 37.6 % (15.3-44.8); MPV 9.6 fL (7.6-11.3); RBC Red Blood Cell Count 3.73 M/uL (4.33-5.43)
[2019-06-12 16:47] LABS: Protime INR 1.27
--- NOTE | 2019-06-12 16:53 | EDPHYS ---
Physician Documentation [facility] Name: Tomas Suárez Age: 83 yrs Sex: Male : 1935 Arrival Date: 06/12/2019 Time: 15:48 Bed 4 Private MD: ASH Physician Anthony Ch HPI: 06/12 16:41 This 83 yrs old Black Male presents to ER via Wheelchair with complaints of Chest Pain. iman 16:41 The patient or guardian reports chest pain that is located primarily in the substernal iman area. Onset: just prior to arrival. The pain does not radiate. Associated signs and symptoms: The patient has no apparent associated signs or symptoms. The chest pain is described as a pressure. Severity of pain: At its worst the pain was mild moderate in the emergency department the pain has improved moderately. The patient has not experienced similar symptoms in the past. Historical: - Allergies: 16:04 Plavix; ch 16:04 Bactrim; ch 16:04 Sulfa (Sulfonamide Antibiotics); ch 16:04 Demerol; ch - Home Meds: 16:04 allopurinol 100 mg Oral tab 1 tab once daily [Active]; amiodarone 200 mg Oral tab 1 tab ch 2 times per day [Active]; alprazolam 0.5 mg Oral tab 1 tab twice a day [Active]; Eliquis 2.5 mg Oral tab 1 tab 2 times per day [Active]; gabapentin 100 mg Oral cap 3 caps twice a day [Active]; Ecotrin 81 mg Oral 1 tab once daily [Active]; metoprolol tartrate 25 mg Oral tab 1 tab 2 times per day [Active]; atorvastatin 40 mg Oral tab 1 tab once daily [Active]; metolazone 5 mg Oral tab 1 tab every 5th day [Active]; - PMHx: 16:04 asbestos; borderline diabetic; CHF; High Cholesterol; Hypertension; neuropathy; kidney ch disease; Myocardial infarction; CVA; Hyperlipidemia; pace maker; Atrial Fib; arrythmias; Gout; - PSHx: 16:04 pacemaker; back sx; cardiac stents x3; neck sx; ch - Immunization history:: Adult Immunizations up to date. - Coronavirus screen:: The patient has NOT traveled to [place], [place], or [place] in the past 14 days. The patient has NOT had contact with known/suspected case of Coronavirus?. - Social history:: Smoking status: Patient denies any tobacco usage or history of. - Ebola Screening: : Patient negative for fever greater than or equal to 101.5 degrees Fahrenheit, and additional compatible Ebola Virus Disease symptoms Patient denies exposure to infectious person Patient denies travel to an Ebola-affected area in the 21 days before illness onset No symptoms or risks identified at this time. ROS: 16:42 Constitutional: Negative for fever, chills, and weight loss, Eyes: Negative for injury, iman pain, redness, and discharge, ENT: Negative for injury, pain, and discharge, Neck: Negative for injury, pain, and swelling, Respiratory: Negative for shortness of breath, cough, wheezing, and pleuritic chest pain, Abdomen/GI: Negative for abdominal pain, nausea, vomiting, diarrhea, and constipation, Back: Negative for injury and pain, : Negative for injury, bleeding, discharge, and swelling, MS/Extremity: Negative for injury and deformity, Skin: Negative for injury, rash, and discoloration, Neuro: Negative for headache, weakness, numbness, tingling, and seizure, Psych: Negative for depression, anxiety, suicide ideation, homicidal ideation, and hallucinations, Allergy/Immunology: Negative for hives, rash, and allergies, Endocrine: Negative for neck swelling, polydipsia, polyuria, polyphagia, and marked weight changes, Hematologic/Lymphatic: Negative for swollen nodes, abnormal bleeding, and unusual bruising. 16:42 Cardiovascular: Positive for chest pain. Exam: 16:42 Constitutional: This is a well developed, well nourished patient who is awake, alert, iman and in no acute distress. Head/Face: Normocephalic, atraumatic. Eyes: Pupils equal round and reactive to light, extra-ocular motions intact. Lids and lashes normal. Conjunctiva and sclera are non-icteric and not injected. Cornea within normal limits. Periorbital areas with no swelling, redness, or edema. ENT: Nares patent. No nasal discharge, no septal abnormalities noted. Tympanic membranes are normal and external auditory canals are clear. Oropharynx with no redness, swelling, or masses, exudates, or evidence of obstruction, uvula midline. Mucous membranes moist. Neck: Trachea midline, no thyromegaly or masses palpated, and no cervical lymphadenopathy. Supple, full range of motion without nuchal rigidity, or vertebral point tenderness. No Meningismus. Chest/axilla: Normal chest wall appearance and motion. Nontender with no deformity. No lesions are appreciated. Respiratory: Lungs have equal breath sounds bilaterally, clear to auscultation and percussion. No rales, rhonchi or wheezes noted. No increased work of breathing, no retractions or nasal flaring. Abdomen/GI: Soft, non-tender, with normal bowel sounds. No distension or tympany. No guarding or rebound. No evidence of tenderness throughout. Back: No spinal tenderness. No costovertebral tenderness. Full range of motion. Male : Normal genitalia with no discharge or lesions. Skin: Warm, dry with normal turgor. Normal color with no rashes, no lesions, and no evidence of cellulitis. MS/ Extremity: Pulses equal, no cyanosis. Neurovascular intact. Full, normal range of motion. Neuro: Awake and alert, GCS 15, oriented to person, place, time, and situation. Cranial nerves II-XII grossly intact. Motor strength 5/5 in all extremities. Sensory grossly intact. Cerebellar exam normal. Normal gait. Psych: Awake, alert, with orientation to person, place and time. Behavior, mood, and affect are within normal limits. 16:42 Cardiovascular: Rate: Rhythm: regular, Pulses: Pulses are 4+ in bilateral radial, brachial, femoral, popliteal, posterior tibial and and dorsalis pedis arteries.. Heart sounds: normal, Edema: is not appreciated, JVD: is noted on the right, to 3 cm. 16:43 Musculoskeletal/extremity: DVT Exam: No signs of deep vein thrombosis. no pain, no iman swelling, no tenderness, negative Homans' sign noted on exam, no appreciated bluish discoloration, no erythema, no increased warmth. Vital Signs: 15:57 BP 141 / 89; Pulse 104; Resp 19 S; Pulse Ox 98% on R/A; ca1 16:04 Weight 129.27 kg; Height 6 ft. 4 in. (193.04 cm); Pain 5/10; ch 16:30 BP 124 / 79; Pulse 103; Resp 17 S; Pulse Ox 99% on R/A; ca1 17:07 BP 130 / 75; Pulse 101; Resp 16 S; Pulse Ox 100% on R/A; ca1 18:10 BP 122 / 75; Pulse 102; Resp 17 S; Pulse Ox 100% on R/A; ca1 19:37 BP 136 / 79; Pulse 100; Resp 18; Pulse Ox 98% ; ea 20:16 BP 135 / 84; Pulse 100; Resp 18; Temp 98.2(TE); Pulse Ox 98% on R/A; ea 16:04 Body Mass Index 34.69 (129.27 kg, 193.04 cm) Procedures: 16:44 Peripheral line: by aseptic technique a peripheral line was placed in the right [facility] external jugular vein. MDM: 15:57 Patient medically screened. [facility] 16:44 Data reviewed: vital signs, nurses notes, lab test result(s), EKG, radiologic studies, [facility] CT scan, plain films. 06/12 16:07 Order name: Basic Metabolic Panel [facility] 06/12 16:07 Order name: CBC with Diff [facility] 06/12 16:07 Order name: LFT's [facility] 06/12 16:07 Order name: Magnesium [facility] 06/12 16:07 Order name: NT PRO-BNP [facility] 06/12 16:07 Order name: PT-INR [facility] 06/12 16:07 Order name: Troponin (emerg Dept Use Only) [facility] 06/12 16:07 Order name: Lipase [facility] 06/12 16:07 Order name: TSH [facility] 06/12 16:47 Order name: CBC with Automated Diff; Complete Time: 16:51 EDMS 06/12 16:49 Order name: Protime (+INR); Complete Time: 16:51 EDMS 06/12 17:21 Order name: Basic Metabolic Panel; Complete Time: 18:09 EDMS 06/12 17:21 Order name: Liver (Hepatic) Function; Complete Time: 18:09 EDMS 06/12 17:21 Order name: Troponin (Emerg Dept Use Only); Complete Time: 18:09 EDMS 06/12 16:07 Order name: XRAY Chest (1 view) [facility] 06/12 16:07 Order name: EKG; Complete Time: 16:10 [facility] 06/12 16:07 Order name: Cardiac monitoring; Complete Time: 16:18 [facility] 06/12 16:07 Order name: EKG - Nurse/Tech; Complete Time: 16:18 [facility] 06/12 16:07 Order name: IV Saline Lock; Complete Time: 16:39 [facility] 06/12 16:07 Order name: Labs collected and sent; Complete Time: 16:39 [facility] 06/12 17:20 Order name: RAD; Complete Time: 18:09 [facility] 06/12 17:21 Order name: NT PRO-BNP; Complete Time: 18:09 [facility] 06/12 17:21 Order name: Magnesium; Complete Time: 18:09 [facility] 06/12 17:21 Order name: Lipase; Complete Time: 18:09 [facility] 06/12 17:21 Order name: Thyroid Stimulating Hormone; Complete Time: 18:09 [facility] 06/12 17:35 Order name: T4 Free; Complete Time: 18:09 [facility] 06/12 16:07 Order name: O2 Per Protocol; Complete Time: 16:18 [facility] 06/12 16:07 Order name: O2 Sat Monitoring; Complete Time: 16:18 [facility] Administered Medications: 17:00 Drug: NS 0.9% 1000 ml Route: IV; Rate: 75 ml/hr; Site: right jugular; ca1 17:21 Follow up: Response: No adverse reaction; IV Status: Infusion continued upon admission ca1 18:55 Drug: Zofran 4 mg Route: IVP; Site: right jugular; ca1 20:15 Follow up: Response: No adverse reaction ea 18:57 Drug: morphine 2 mg Route: IVP; Site: right jugular; ca1 20:14 Drug: morphine 2 mg {Note: RASS 0.} Route: IVP; Site: Other; ea Disposition: 06/12/19 16:53 Hospitalization ordered by Magadleno France for Inpatient Admission. Preliminary diagnosis are Other chest pain, Atrial fibrillation and flutter, Unspecified kidney failure. - Bed requested for Telemetry/MedSurg (Inpatient). - Status is Inpatient Admission. ea - Condition is Fair. - Problem is new. - Symptoms have improved. Signatures: Dispatcher [employer] EDME Maryam Blackwood Christina, RN RN ch Anderson, Corey, MD MD cha Antunez, Elena, RN RN ea Acob, Cheryl, RN RN ca1 Corrections: (The following items were deleted from the chart) 18:29 16:53 Hospitalization Ordered by Magdaleno France DO for Inpatient Admission. Preliminary bd diagnosis is Other chest pain; Atrial fibrillation and flutter; Unspecified kidney failure. Bed requested for Telemetry/MedSurg (Inpatient). Status is Inpatient Admission. Condition is Fair. Problem is new. Symptoms have improved. iman 21:14 18:29 06/12/2019 16:53 Hospitalization Ordered by Magdaleno France DO for Inpatient ea Admission. Preliminary diagnosis is Other chest pain; Atrial fibrillation and flutter; Unspecified kidney failure. Bed requested for Telemetry/MedSurg (Inpatient). Status is Inpatient Admission. Condition is Fair. Problem is new. Symptoms have improved. bd
--- NOTE | 2019-06-12 16:53 | ER ---
Nurse's Notes [facility] Name: Tomas Suárez Age: 83 yrs Sex: Male : 1935 Arrival Date: 06/12/2019 Time: 15:48 Bed 4 Private MD: Diagnosis: Other chest pain;Atrial fibrillation and flutter;Unspecified kidney failure Presentation: 06/12 16:00 Presenting complaint: Patient states: chest pains woke me up from my sleep about 1 hr ch ago, around 1545. I feel SOB. Transition of care: patient was not received from another setting of care. Onset of symptoms was June 12, 2019 at 15:44. Risk Assessment: Do you want to hurt yourself or someone else? Patient reports no desire to harm self or others. Initial Sepsis Screen: Does the patient meet any 2 criteria? No. Patient's initial sepsis screen is negative. Does the patient have a suspected source of infection? No. Patient's initial sepsis screen is negative. Care prior to arrival: None. 16:00 Method Of Arrival: Wheelchair 16:00 Acuity: CORNELIUS 3 ch Historical: - Allergies: 16:04 Plavix; 16:04 Bactrim; 16:04 Sulfa (Sulfonamide Antibiotics); 16:04 Demerol; - Home Meds: 16:04 allopurinol 100 mg Oral tab 1 tab once daily [Active]; amiodarone 200 mg Oral tab 1 tab ch 2 times per day [Active]; alprazolam 0.5 mg Oral tab 1 tab twice a day [Active]; Eliquis 2.5 mg Oral tab 1 tab 2 times per day [Active]; gabapentin 100 mg Oral cap 3 caps twice a day [Active]; Ecotrin 81 mg Oral 1 tab once daily [Active]; metoprolol tartrate 25 mg Oral tab 1 tab 2 times per day [Active]; atorvastatin 40 mg Oral tab 1 tab once daily [Active]; metolazone 5 mg Oral tab 1 tab every 5th day [Active]; - PMHx: 16:04 asbestos; borderline diabetic; CHF; High Cholesterol; Hypertension; neuropathy; kidney ch disease; Myocardial infarction; CVA; Hyperlipidemia; pace maker; Atrial Fib; arrythmias; Gout; - PSHx: 16:04 pacemaker; back sx; cardiac stents x3; neck sx; ch - Immunization history:: Adult Immunizations up to date. - Coronavirus screen:: The patient has NOT traveled to [place], [place], or [place] in the past 14 days. The patient has NOT had contact with known/suspected case of Coronavirus?. - Social history:: Smoking status: Patient denies any tobacco usage or history of. - Ebola Screening: : Patient negative for fever greater than or equal to 101.5 degrees Fahrenheit, and additional compatible Ebola Virus Disease symptoms Patient denies exposure to infectious person Patient denies travel to an Ebola-affected area in the 21 days before illness onset No symptoms or risks identified at this time. Screenin:05 Abuse screen: Denies threats or abuse. Denies injuries from another. Nutritional ca1 screening: No deficits noted. Tuberculosis screening: No symptoms or risk factors identified. Fall Risk IV access (20 points). Assessment: 16:05 General: Appears in no apparent distress. comfortable, Behavior is calm, cooperative, ca1 appropriate for age. Pain: Complains of pain in left breast Pain does not radiate. Pain currently is 7 out of 10 on a pain scale. Quality of pain is described as pressure, Pain began 1 hour ago. Is intermittent, Also complains of shortness of breath. Neuro: Level of Consciousness is awake, alert, obeys commands, Oriented to person, place, time, situation, Appropriate for age. Neuro: Reports dizziness. Cardiovascular: Heart tones S1 S2 present Capillary refill < 3 seconds Patient's skin is warm and dry. Rhythm is Respiratory: Airway is patent Respiratory effort is even, unlabored, Respiratory pattern is regular, symmetrical, Breath sounds are clear bilaterally. Respiratory: Reports shortness of breath. GI: Abdomen is round non-distended, Bowel sounds present X 4 quads. Abd is soft and non tender X 4 quads. : No signs and/or symptoms were reported regarding the genitourinary system. EENT: No signs and/or symptoms were reported regarding the EENT system. EENT: Derm: Skin is intact, is healthy with good turgor, Skin is pink, warm \T\ dry. Musculoskeletal: Circulation, motion, and sensation intact. Capillary refill < 3 seconds. 17:07 Reassessment: Patient appears in no apparent distress at this time. Patient and/or ca1 family updated on plan of care and expected duration. Pain level reassessed. Patient is alert, oriented x 3, equal unlabored respirations, skin warm/dry/pink. Dr. France at bedside. 18:10 Reassessment: Patient appears in no apparent distress at this time. No changes from ca1 previously documented assessment. Patient and/or family updated on plan of care and expected duration. Pain level reassessed. Patient is alert, oriented x 3, equal unlabored respirations, skin warm/dry/pink. 19:40 General: Appears in no apparent distress. Behavior is calm, cooperative, appropriate ea for age. Pain: Denies pain. Neuro: Level of Consciousness is awake, alert, obeys commands, Oriented to person, place, time, situation. Cardiovascular: Patient's skin is warm and dry. Respiratory: Airway is patent Respiratory effort is even, unlabored, Respiratory pattern is regular, symmetrical. Derm: Skin is pink, warm \T\ dry. 20:09 Reassessment: Report called to Francia STANTON. ea 20:17 Reassessment: Patient and/or family updated on plan of care and expected duration. Pain ea level reassessed. Patient is alert, oriented x 3, equal unlabored respirations, skin warm/dry/pink. Vital Signs: 15:57 BP 141 / 89; Pulse 104; Resp 19 S; Pulse Ox 98% on R/A; ca1 16:04 Weight 129.27 kg; Height 6 ft. 4 in. (193.04 cm); Pain 5/10; ch 16:30 BP 124 / 79; Pulse 103; Resp 17 S; Pulse Ox 99% on R/A; ca1 17:07 BP 130 / 75; Pulse 101; Resp 16 S; Pulse Ox 100% on R/A; ca1 18:10 BP 122 / 75; Pulse 102; Resp 17 S; Pulse Ox 100% on R/A; ca1 19:37 BP 136 / 79; Pulse 100; Resp 18; Pulse Ox 98% ; ea 20:16 BP 135 / 84; Pulse 100; Resp 18; Temp 98.2(TE); Pulse Ox 98% on R/A; ea 16:04 Body Mass Index 34.69 (129.27 kg, 193.04 cm) ED Course: 15:48 Patient arrived in ED. as 15:56 Eden Pritchard, ROMY is Primary Nurse. ca1 15:57 Anthony Ch MD is Attending Physician. [facility] 16:01 Triage completed. 16:04 Arm band placed on left wrist. Patient placed in an exam room, on a stretcher, on awake overnight monitor, on pulse oximetry. EKG completed in triage. Results shown to . 16:05 Patient has correct armband on for positive identification. Placed in gown. Bed in low ca1 position. Call light in reach. Side rails up X 1. alarm security or surveillance monitor on. Pulse ox on. NIBP on. Warm blanket given. 16:05 Patient maintains SpO2 saturation greater than 95% on room air. ca1 16:26 Missed attempt(s): 22 gauge in right antecubital area. Bleeding controlled, band aid ms applied, catheter tip intact. Missed attempt(s): 20 gauge in right wrist. Bleeding controlled, band aid applied, catheter tip intact. 16:45 Initial lab(s) drawn, by ED staff, sent to lab. Inserted saline lock: 18 gauge in right ca1 EJ, using aseptic technique. ,using aseptic technique. By Dr. Ch Blood collected. 16:52 Magdaleno France DO is Hospitalizing Provider. iman 17:18 No provider procedures requiring assistance completed. Patient admitted, IV remains in ca1 place. Administered Medications: 17:00 Drug: NS 0.9% 1000 ml Route: IV; Rate: 75 ml/hr; Site: right jugular; ca1 17:21 Follow up: Response: No adverse reaction; IV Status: Infusion continued upon admission ca1 18:55 Drug: Zofran 4 mg Route: IVP; Site: right jugular; ca1 20:15 Follow up: Response: No adverse reaction ea 18:57 Drug: morphine 2 mg Route: IVP; Site: right jugular; ca1 20:14 Drug: morphine 2 mg {Note: RASS 0.} Route: IVP; Site: Other; ea Outcome: 16:53 Decision to Hospitalize by Provider. iman 19:36 Instructed on the need for admit, Demonstrated understanding of instructions. ea 20:09 Admitted to Med/surg accompanied by brayan, zainab [id number], with chart, Report called to Francia liao RN 20:09 Condition: stable 21:14 Patient left the ED. ea Signatures: Monika Mcdonald, Anthony Gutierrez RN, ch, MD MD cha Martinez, Amelia as Villarreal, Maria ms Antunez, Elena, RN RN ea Acob, Cheryl RN RN ca1 Corrections: (The following items were deleted from the chart) 16:25 16:05 Cardiovascular: Heart tones S1 S2 present Capillary refill < 3 seconds Patient's ca1 skin is warm and dry. ca1 18:22 16:30 BP 124 / 79; Pulse 97bpm; Resp 17bpm; Spontaneous; Pulse Ox 99% RA; ca1 ca1 18:57 16:45 Inserted saline lock: 20 gauge in right EJ, using aseptic technique. ,using ca1 aseptic technique. By Dr. Ch Blood collected. ca1
[2019-06-12] MEDS ORDERED: NA CHLORIDE 0.9% 1,000 ML ONE (17:06)
[2019-06-12 17:10] LABS: Albumin 3.2 g/dL (3.4-5.0); Bilirubin Direct 0.2 mg/dL (0-0.2); Bilirubin Total 0.6 mg/dL (0.2-1.0); Potassium 3.9 mmol/L (3.5-5.1); Protein, Total 8.1 g/dL (6.4-8.2); Troponin (Emerg Dept Use Only) 0.22 ng/mL (0.0-0.045)
--- NOTE | 2019-06-12 17:12 | RAD REPORT ---
EXAM DESCRIPTION: [facility] Single View06/12/2019 4:21 pm CLINICAL HISTORY: Chest pain COMPARISON: February 2019 FINDINGS: The lungs appear clear of acute infiltrate. The heart is mildly enlarged. Pacemaker leads are in place. Upper lobe vessels are prominent indicative of pulmonary venous hypertension
--- NOTE | 2019-06-12 17:17 | P.HP ---
Certification for Inpatient Patient admitted to: Observation With expected LOS: <2 Midnights Patient will require the following post-hospital care: None Practitioner: I am a practitioner with admitting privileges, knowledge of patient current condition, hospital course, and medical plan of care. Services: Services provided to patient in accordance with Admission requirements found in Title 42 Section 412.3 of the Code of Federal Regulations Patient History Date of Service: 06/12/19 Primary Care Provider: Dr. Marc([facility]); Dr. Morrison([place] [facility]) Reason for admission: Chest pain History of Present Illness: 83-year-old male with history of hypertension, atrial fibrillation on chronic anti coagulation therapy, history pacemaker/ defibrillator, and hyperlipidemia. Patient presented with chest pain that started today. It is mainly to the left side. No radiation of pain noted. He denies any significant shortness of breath, cough, congestion or fever. Pain resolved on its own. Patient came to the ER for further evaluation. In the ER patient evaluated. No significant EKG changes noted. White count 3.4 , hemoglobin 11.8. Platelet count of 100. BMP pending at this time. Chest x- ray unremarkable. Due to his multiple medical history patient was admitted for observation. When I saw the patient the ER, appeared comfortable. No significant shortness of breath noted. at bedside. Patient sees cardiology in [place]. He was actually seen 2 weeks ago. No recent cardiac stress test noted. Patient with history of defibrillator pacemaker and multiple stents. Allergies sulfamethoxazole [From Bactrim] Allergy (Mild, Verified 01/28/17 06:26) Rash trimethoprim [From Bactrim] Allergy (Mild, Verified 01/28/17 06:26) Rash clopidogrel [From Plavix] Allergy (Verified 01/28/17 06:26) Unknown Sulfa (Sulfonamide Allergy (Uncoded 01/28/17 02:10) Unknown Home medications list reviewed: Yes Home Medications: Amiodarone HCl [Pacerone] 200 mg PO BID 01/28/17 Atorvastatin Calcium [Lipitor] 40 mg PO BEDTIME 01/28/17 Colchicine 0.6 mg PO BID PRN 01/28/17 Furosemide [Lasix*] 40 mg PO DAILY 01/28/17 Hydrocodone Bit/Acetaminophen [Hydrocodon-Acetaminophn 10-500] 1 each PO TID PRN 01/28/17 Losartan Potassium [Cozaar] 100 mg PO DAILY 01/28/17 Pregabalin [Lyrica] 75 mg PO BID #60 01/28/17 Tamsulosin [Flomax*] 0.4 mg PO BEDTIME 01/28/17 allopurinoL [Zyloprim*] 100 mg PO DAILY 01/28/17 carvediloL [Coreg*] 25 mg PO BID 01/28/17 - Past Medical/Surgical History Diabetic: No -: HTN -: CHF, diastolic dysfunction -: Atrial fibrillation on chronic anti coagulation therapy -: CAD with prior stents -: Pacemaker defibrillator -: GERD -: Neuropathy -: Pacemaker defibrillator -: Cardiac stents Psychosocial/ Personal History: Patient is lives at home. - Family History Father -: Other (see notes) (Trauma) Mother -: Heart disease Brother -: Heart disease Notes: 3 brothers - heart failure Sister -: Heart disease Notes: heart failure - Social History Smoking Status: Never smoker Alcohol use: No CD- Drugs: No Caffeine use: Yes Place of Residence: Home Review of Systems General: As per HPI Eyes: Unremarkable ENT: Unremarkable Respiratory: Unremarkable Cardiovascular: Chest Pain, As per HPI Gastrointestinal: Unremarkable Genitourinary: Unremarkable Musculoskeletal: Pedal edema, As per HPI Integumentary: Unremarkable Neurological: Unremarkable Lymphatics: Unremarkable Physical Examination - Physical Exam General: Alert, In no apparent distress, Cooperative HEENT: Atraumatic Neck: Supple, No Thyromegaly Respiratory: Clear to auscultation bilaterally, Normal air movement Cardiovascular: Normal pulses, Regular rate/rhythm Gastrointestinal: Normal bowel sounds, Soft and benign, Non-distended, No ascites, No tenderness, No masses, No rebound, No guarding Musculoskeletal: No erythema, No tenderness, No warmth Integumentary: No erythema, No warmth, No cyanosis, Tenderness/swelling ( Minimal pitting edema to the lower extremities) Neurological: Normal speech, Normal strength at 5/5 x4 extr, Normal tone, Normal affect - Studies Laboratory Data (last 24 hrs) 06/12/19 16:37: PT 14.8 H, INR 1.27 06/12/19 16:37: WBC 3.4 L, Hgb 11.8 L, Hct 35.6 L, Plt Count 100 L Assessment and Plan - Plan Impression: Chest pain with history of CAD and prior stents Hypertension Chronic diastolic CHF Atrial fibrillation on chronic anti coagulation therapy History of pacemaker/defibrillator Hyperlipidemia Plan: Chest pain with history of CAD and prior stents: Patient will be admitted for further evaluation and treatment. Will continue to monitor telemetry and cardiac enzymes. Will obtain echocardiogram. Will consult cardiology for further recommendation. Anticipate discharge if workup unremarkable. Will keep the patient NPO after midnight in the event cardiology wants to further evaluate patient. Patient sees cardiology in [place]. Will continue with home medications. Hypertension: Continue with metoprolol. Chronic diastolic CHF: Will teach on 1500 cc per day fluid restriction. Will obtain echocardiogram. Will continue with Lasix 40 mg b.i.d.. Atrial fibrillation on chronic anti coagulation therapy: Continue with Eliquis 2.5 mg daily and amiodarone 200 mg 1 pill twice daily. History of pacemaker/defibrillator: Overall stable. Will monitor closely. Continue as above. Hyperlipidemia: Will obtain fasting lipid panel. Continue Lipitor 40 mg daily. Discharge Plan: Home Plan to discharge in: 24 Hours - Advance Directives Does patient have a Living Will: No Does patient have a Durable POA for Healthcare: No - Code Status/Comfort Care Code Status Assessed: Yes (Patient is full code) Time Spent Managing Pts Care (In Minutes): 55
[2019-06-12] MEDS ORDERED: MORPHINE 2 MG/ML SYR ONE ×2 (18:56→20:16)
[2019-06-12] MEDS ORDERED: ONDANSETRON 4 MG/2 ML VIAL ONE (18:56)
[2019-06-12] MEDS ORDERED: ONDANSETRON 4 MG/2 ML VIAL IV PRN (21:38)
[2019-06-12] MEDS ORDERED: ATORVASTATIN 40 MG TAB PO SCH (21:38)
[2019-06-12] MEDS ORDERED: ACETAMINOPHEN 500 MG TAB PO PRN (21:38)
[2019-06-12] MEDS: METOPROLOL TAR 25 MG TAB PO SCH (22:01)
[2019-06-12] MEDS: AMIODARONE HCL 200 MG TAB PO SCH (22:01)
[2019-06-12] MEDS: APIXABAN 2.5 MG TABLET PO SCH (22:01)
[2019-06-12] MEDS: GABAPENTIN 100 MG CAP PO SCH (22:01)
[2019-06-12 22:03] VITALS: BMI 38.2
[2019-06-12 22:35] LABS: CKMB Creatine Kinase MB < 1.0 ng/mL (0.3-3.6); Creatine Phosphokinase 121 U/L (39-308); Troponin I 0.22 ng/mL (0.0-0.045)
[2019-06-13] MEDS: METOPROLOL TAR 25 MG TAB PO SCH ×2 (05:30→16:10)
[2019-06-13 06:26] LABS: Absolute Lymphocytes (CBC) 1.4 K/uL (0.7-4.9); Basophils % 0.6 % (0-1.3); Hematocrit 36.4 % (39.6-49.0); Lymphocytes % 38.4 % (15.3-44.8); RBC Red Blood Cell Count 3.81 M/uL (4.33-5.43)
--- NOTE | 2019-06-13 06:37 | EKG ---
Test Date: 2019-06-12 Test Time: 16:01:29 Safety Consultant: MARTA MEASUREMENT RESULTS: Intervals: Rate: 97 SD: 80 QRSD: 144 QT: 402 QTc: 510 [place]: P: SD: 80 QRS: -82 T: 104 INTERPRETIVE STATEMENTS: Atrial-sensed ventricular-paced rhythm tracking sinus rhythm Abnormal ECG Compared to ECG 02/16/2019 10:22:58 Atrial pacing is no longer present Ventricular pacing is now present Electronically Signed On 06-13-19 06:36:39 SIDE SEAM MACHINE OPERATOR by Jose Armando Tapia
[2019-06-13 06:54] LABS: CKMB Creatine Kinase MB 1.1 ng/mL (0.3-3.6); Troponin I 0.24 ng/mL (0.0-0.045)
[2019-06-13 06:56] LABS: Platelet Estimate DECR; Urine White Blood Cell Casts OK
[2019-06-13 07:18] LABS: Magnesium 2.2 mg/dL (1.8-2.4); Potassium 3.8 mmol/L (3.5-5.1)
[2019-06-13] MEDS ORDERED: POTASSIUM CL SA 10 MEQ TAB PO ONE (07:26)
[2019-06-13] MEDS: GABAPENTIN 100 MG CAP PO SCH ×2 (08:21→13:43)
[2019-06-13] MEDS: AMIODARONE HCL 200 MG TAB PO SCH (08:21)
[2019-06-13] MEDS: APIXABAN 2.5 MG TABLET PO SCH (08:21)
[2019-06-13] MEDS: FUROSEMIDE 40 MG TABLET PO SCH ×2 (08:21→16:12)
[2019-06-13] MEDS ORDERED: LEVOTHYROXINE SOD 0.05 MG TABLET PO SCH (08:30)
--- NOTE | 2019-06-13 08:49 | P.PN ---
Subjective Date of Service: 06/13/19 Primary Care Provider: Dr. Marc([facility]); Dr. Morrison([facility] [facility]) Chief Complaint: Chest pain Subjective: Improving, Doing well (No more chest pain noted) Physical Examination - Vital Signs Temperature: 97 F Blood Pressure: 127/74 Pulse: 101 Respirations: 16 Pulse Ox (%): 98 - Physical Exam General: Alert, Cooperative HEENT: Atraumatic Neck: Supple Respiratory: Clear to auscultation bilaterally, Normal air movement Cardiovascular: Normal pulses (Paced rhythm) Gastrointestinal: Normal bowel sounds Integumentary: No tenderness/swelling, No erythema, No warmth, No cyanosis Neurological: Normal speech, Normal strength at 5/5 x4 extr, Normal tone - Studies Laboratory Data (last 24 hrs) 06/12/19 16:37: PT 14.8 H, INR 1.27 06/12/19 16:37: WBC 3.4 L, Hgb 11.8 L, Hct 35.6 L, Plt Count 100 L 06/12/19 16:37: Sodium 141, Potassium 3.9, BUN 24 H, Creatinine 2.60 H, Glucose 112 H, Magnesium 2.0, Total Bilirubin 0.6, AST 12 L, ALT 17, Alkaline Phosphatase 62, Lipase 65 L Medications List Reviewed: Yes Assessment & Plan Discharge Plan: Home Plan to discharge in: 24 Hours Physician Review Additional Text: Impression: Chest pain with history of CAD and prior stents with elevated troponin New diagnosis of hypothyroidism Hypertension Chronic diastolic CHF Atrial fibrillation on chronic anti coagulation therapy History of pacemaker/defibrillator Hyperlipidemia Chronic renal disease stage III Pancytopenia Plan: Chest pain with history of CAD and prior stents with elevated troponin: Troponins were elevated. Await echocardiogram. Pacemaker to be interrogated. Cardiology has evaluated patient. Patient will have cardiac stress test. If within normal range likely discharge today. If abnormal patient will likely require heart catheterization. Will discuss further with cardiology. Patient sees cardiology at [place]. New diagnosis of hypothyroidism: Tsh and free T4 abnormal. Will start levothyroxine 50 mcg daily. Patient will need to have levels recheck in 4-6 weeks for further adjustment. Patient may benefit with endocrinology referral as an outpatient to further address Hypertension: Continue with medication metoprolol.. Chronic diastolic CHF: Will teach on 1500 cc per day fluid restriction. Will obtain echocardiogram. Will continue with Lasix 40 mg b.i.d.. Atrial fibrillation on chronic anti coagulation therapy: Continue with Eliquis 2.5 mg daily and amiodarone 200 mg 1 pill twice daily. History of pacemaker/defibrillator: Overall stable. Will monitor closely. Continue as above. Hyperlipidemia: Fasting lipid panel within normal range. Continue Lipitor 40 mg daily. Chronic renal disease stage III: Will monitor closely. Pancytopenia: This appears chronic. Will obtain peripheral smear. Patient may benefit with hematology evaluation as an outpatient. Time Spent Managing Pts Care (In Minutes): 55
[2019-06-13] MEDS ORDERED: allopurinoL 100 MG TAB PO SCH (09:00)
[2019-06-13] MEDS ORDERED: REGADENOSON 0.4 MG/5 ML SYR IV ONE (09:29)
[2019-06-13 10:18] LABS: Anisocytosis 1+; Blood Morphology Comment NOTED (NOT SEEN); Poikilocytosis 1+
--- NOTE | 2019-06-13 12:16 | CON ---
History Of Present Illness: Mr. Marin came to the hospital because of chest pain. The chest pain we nt away by the time he got to the hospital. It had been there for a day or 2 before. The chest pain is in the very inferior left part of his heart. It was a sticking pain. It hurt a little bit more to push on it and now it has all resolved. The patient has a history of a stent around 2010. He has a pacemaker implanted about the same time, all managed by a fur scraper in [place]. He is said to have congestive heart failure, gout, atrial fibrillation, although he is not in AFib now. Medications: His outpatient medications have been allopurinol, atorvastatin, furosemide, hydrocodone , aspirin, calcitriol, metoprolol, gabapentin, metolazone, apixaban 2.5 b.i.d., amiodarone 200 b.i.d. , and alprazolam. He also has stage IV renal insufficiency. Creatinine is close to 3 here in the hospital. Physical Examination: General: He is 6 feet 4 inches, 314 pounds. Alert, oriented, pleasant, not in distress. Lungs: Clear. Heart: Reveals a regular rate and rhythm. No murmur or gallop. Apical impulse is mildly laterally displaced. Abdomen: Soft. Extremities: Mild edema. Distal pulses palpable. Laboratory Data: Reveals troponins 0.22, 0.22, 0.24 over a 12-hour period of time and his creatinine was 2.6 on admission. GFR 29. Impression: This is probably noncardiac chest pain. He also had an elevated TSH which could be in p art due to his taking amiodarone. He needs to have levothyroxine supplementation given and we should do a nuclear stress test and echo to see where we stand. I do not think this is an acute coronary syndrom e. SH/MODL Voice ID: [id number] Report ID: [id number]
--- NOTE | 2019-06-13 12:36 | ECHO ---
HEIGHT: 6 ft 4 in WEIGHT: 314 lb 9.6 oz DATE OF STUDY: 06/13/[address]: Magdaleno France DO 2-DIMENSIONAL: YES M.MODE: YES DOPPLER: YES COLOR FLOW: YES TDS: NO PORTABLE: NO DEFINITY: NO BUBBLE STUDY: NO DIAGNOSIS: CHEST PAIN, HISTORY OF HYPERTENSION, ATRIAL FIBRILLATION, CONGESTIVE HEART FAILURE CARDIAC HISTORY: CATHERIZATION: YES SURGERY: NO PROSTHETIC VALVE: NO PACEMAKER: YES MEASUREMENTS (cm) DIASTOLIC (NORMALS) SYSTOLIC (NORMALS) IVSd 1.2 (0.6-1.2) LA Diam 3.1 (1.9-4.0) LVEF 55% LVIDd 4.6 (3.5-5.7) LVIDs 3.3 (2.0-3.5) %FS 29% LVPWd 1.2 (0.6-1.2) Ao Diam 3.2 (2.0-3.7) 2 DIMENSIONAL ASSESSMENT: RIGHT ATRIUM: NORMAL LEFT ATRIUM: NORMAL RIGHT VENTRICLE: PACEMAKER LEFT VENTRICLE: LEFT VENTRICULAR HYPERTROPHY TRICUSPID VALVE: NORMAL MITRAL VALVE: NORMAL PULMONIC VALVE: NORMAL AORTIC VALVE: NORMAL PERICARDIAL EFFUSION: NONE AORTIC ROOT: NORMAL LEFT VENTRICULAR WALL MOTION: NORMAL DOPPLER/COLOR FLOW: MILD TRICUSPID REGURGITATION. MODERATE PULMONARY HYPERTENSION. ESTIMATED RIGHT VENTRICULAR SYSTOLIC PRESSURE 50 mmHg. COMMENTS: NORMAL LEFT VENTRICULAR EJECTION FRACTION. LEFT VENTRICULAR HYPERTROPHY. PACEMAKER IN RIGHT VENTRICLE. MILD TRICUSPID REGURGITATION. MODERATE PULMONARY HYPERTENSION. TECHNOLOGIST: Tucker TURNER
--- NOTE | 2019-06-13 13:50 | RAD REPORT ---
EXAM DESCRIPTION: NM - Rest Stress Cardiac Imaging - 06/13/2019 1:38 pm CLINICAL HISTORY: CP Chest pain. COMPARISON: No comparisons TECHNIQUE: The patient was administered approximately 10mCi of Tc 99m Sestamibi prior to resting SPE CT imaging of the heart. The patient was then administered approximately 30 mCi of Tc 99m Sestamibi f ollowing exercise or pharmacologic stress. Multiplanar SPECT images were reviewed. FINDINGS: No stress induced ischemic defect is seen to suggest stress induced ischemia. No fixed def ect is seen to suggest hibernating myocardium or scarred myocardium. The end diastolic volume is 78 ml, the end systolic volume is 40 ml, and the ejection fraction is 50 %. IMPRESSION: No stress induced ischemia.
--- NOTE | 2019-06-13 14:24 | P.DS ---
Admission Date: 06/12/19 Discharge Date: 06/13/19 Primary Care Provider: Dr. Marc([facility]); Dr. Morrison([facility] [place] [facility]) Disposition: ROUTINE DISCHARGE Discharge Condition: GOOD Reason for Admission: Chest pain Consultations: Cardiology-Dr. Tapia Procedures: ECHO: Ejection fraction 55% LEFT VENTRICULAR WALL MOTION: NORMAL DOPPLER/COLOR FLOW: MILD TRICUSPID REGURGITATION. MODERATE PULMONARY HYPERTENSION. ESTIMATED RIGHT VENTRICULAR SYSTOLIC PRESSURE 50 mmHg. COMMENTS: NORMAL LEFT VENTRICULAR EJECTION FRACTION. LEFT VENTRICULAR HYPERTROPHY. PACEMAKER IN RIGHT VENTRICLE. MILD TRICUSPID REGURGITATION. MODERATE PULMONARY HYPERTENSION. Cardiac stress test: COMPARISON: No comparisons TECHNIQUE: The patient was administered approximately 10mCi of Tc 99m Sestamibi prior to resting SPECT imaging of the heart. The patient was then administered approximately 30 mCi of Tc 99m Sestamibi following exercise or pharmacologic stress. Multiplanar SPECT images were reviewed. FINDINGS: No stress induced ischemic defect is seen to suggest stress induced ischemia. No fixed defect is seen to suggest hibernating myocardium or scarred myocardium. The end diastolic volume is 78 ml, the end systolic volume is 40 ml, and the ejection fraction is 50 %. IMPRESSION: No stress induced ischemia. Medical Problem List: Chest pain with history of CAD and prior stents with elevated troponin New diagnosis of hypothyroidism Hypertension Chronic diastolic CHF Atrial fibrillation on chronic anti coagulation therapy History of pacemaker/defibrillator Hyperlipidemia Chronic renal disease stage III Pancytopenia Brief History of Present Illness: 83-year-old male with history of hypertension, atrial fibrillation on chronic anti coagulation therapy, history pacemaker/ defibrillator, and hyperlipidemia. Patient presented with chest pain that started today. It is mainly to the left side. No radiation of pain noted. He denies any significant shortness of breath, cough, congestion or fever. Pain resolved on its own. Patient came to the ER for further evaluation. In the ER patient evaluated. No significant EKG changes noted. White count 3.4 , hemoglobin 11.8. Platelet count of 100. BMP pending at this time. Chest x- ray unremarkable. Due to his multiple medical history patient was admitted for observation. When I saw the patient the ER, appeared comfortable. No significant shortness of breath noted. at bedside. Patient sees cardiology in [place]. He was actually seen 2 weeks ago. No recent cardiac stress test noted. Patient with history of defibrillator pacemaker and multiple stents. Hospital Course: Patient presented with chest pain. Patient with history of CAD and prior stents. Patient had mild elevation of troponin. Patient was evaluated by cardiology. Echocardiogram obtained showed ejection fraction of 55% with moderate pulmonary hypertension. Cardiac stress test did not show any stress- induced ischemia. Cardiology felt this was not related to acute coronary syndrome. No need for pacemaker interrogation at this time as recommended by Cardiology. Patient will be discharged home. Patient will be discharged home. Recommend follow up with his vp integrity in 1 week to follow up this hospitalization. Patient found to have hypothyroidism. This was likely related to his use of amiodarone. New medication includes levothyroxine 50 mcg daily. Recommend to recheck tsh and free T4 in 4-6 weeks to monitor and adjust his medication. Patient may benefit with endocrinology evaluation as an outpatient to further monitor. Patient with hypertension. At discharge he will continue with medication metoprolol 25 mg 1 pill twice daily. Patient with chronic diastolic CHF. At discharge patient will continue with a 1500 cc per day fluid restriction and low-salt diet. Patient will continue with Lasix 40 mg 1 pill once daily. Patient also may continue with metolazone as directed. If his weight increases by more than 5 lb he is to contact his PCP for further recommendation. Ejection fraction around 55%. Moderate pulmonary hypertension noted. Recommend follow up with cardiology to further address and monitor. Patient with atrial fibrillation on chronic anti coagulation therapy. At discharge patient continue with Eliquis 2.5 mg daily and amiodarone 200 mg 1 pill twice daily. Patient with history of pacemaker defibrillator. Interrogation of pacemaker was done. Patient with hyperlipidemia. At discharge he will continue with Lipitor 40 mg daily. Patient with chronic renal disease stage III. This remained stable. Recommend no further use of nonsteroidal anti-inflammatories need to be renally dose. Recommend follow up with his global human resources director to further monitor. Future medications will need to be renally dose. Patient with noted pancytopenia. This appears chronic. Will obtain peripheral smear to further evaluate. Will recommend recheck CBC within 1 week to monitors progress. Patient may require Hematology evaluation as an outpatient if this persists. Vital Signs/Physical Exam: Temp Pulse Resp BP Pulse Ox 97 F 96 H 18 128/74 99 06/13/19 12:00 06/13/19 12:00 06/13/19 12:00 06/13/19 12:00 06/13/19 12:00 General: Alert, Cooperative HEENT: Atraumatic Neck: Supple Respiratory: Clear to auscultation bilaterally, Normal air movement Cardiovascular: Normal pulses, Regular rate/rhythm Gastrointestinal: Normal bowel sounds, Soft and benign, Non-distended Neurological: Normal speech, Normal strength at 5/5 x4 extr, Normal tone Laboratory Data at Discharge: WBC 3.8 K/uL (4.3-10.9) L 06/13/19 06:10 Hgb 11.8 g/dL (13.6-17.9) L 06/13/19 06:10 Hct 36.4 % (39.6-49.0) L 06/13/19 06:10 Plt Count 77 K/uL (152-406) L D 06/13/19 06:10 PT 14.8 SECONDS (9.5-12.5) H 06/12/19 16:37 INR 1.27 06/12/19 16:37 Sodium 142 mmol/L (136-145) 06/13/19 06:10 Potassium 3.8 mmol/L (3.5-5.1) 06/13/19 06:10 BUN 27 mg/dL (7-18) H 06/13/19 06:10 Creatinine 2.21 mg/dL (0.55-1.3) H 06/13/19 06:10 Glucose 90 mg/dL (74-106) 06/13/19 06:10 Magnesium 2.2 mg/dL (1.8-2.4) 06/13/19 06:10 Total Bilirubin 0.6 mg/dL (0.2-1.0) 06/12/19 16:37 AST 12 U/L (15-37) L 06/12/19 16:37 ALT 17 U/L (12-78) 06/12/19 16:37 Alkaline Phosphatase 62 U/L (45-117) 06/12/19 16:37 Troponin I 0.24 ng/mL (0.0-0.045) H 06/13/19 06:10 Triglycerides 73 mg/dL (<150) 06/13/19 06:10 Cholesterol 95 mg/dL (<200) 06/13/19 06:10 HDL Cholesterol 58 mg/dL (40-60) 06/13/19 06:10 Cholesterol/HDL Ratio 1.64 06/13/19 06:10 Lipase 65 U/L (73-393) L 06/12/19 16:37 Home Medications: Atorvastatin Calcium [Lipitor] 40 mg PO BEDTIME 01/28/17 Furosemide [Lasix*] 40 mg PO DAILY 01/28/17 Hydrocodone Bit/Acetaminophen [Hydrocodon-Acetaminophn 10-500] 1 each PO TID PRN 01/28/17 allopurinoL [Zyloprim*] 100 mg PO DAILY 01/28/17 Alprazolam [Xanax] 0.5 mg PO BID 06/12/19 Amiodarone HCl [Cordarone*] 200 mg PO BID 06/12/19 Apixaban [Eliquis *] 2.5 mg PO BID 06/12/19 Aspirin [Ecotrin 81 MG] 81 mg PO DAILY 06/12/19 Calcitrol [Rocaltrol*] 0.25 mcg PO SEECOM 06/12/19 Gabapentin 200 mg PO TID 06/12/19 Metoprolol Tartrate 25 mg PO BID 06/12/19 metOLazone [Metolazone] 5 mg PO SEECOM 06/12/19 Levothyroxine [Synthroid*] 0.05 mg PO DAILYAC #30 tablet 06/13/19 New Medications: Levothyroxine [Synthroid*] 0.05 mg PO DAILYAC #30 tablet Patient Discharge Instructions: 1. Recommend follow up with PCP in 1 week to follow up this hospitalization. 2. Patient presented with chest pain. Patient with history of CAD and prior stents. Patient had mild elevation of troponin. Patient was evaluated by cardiology. Echocardiogram obtained showed ejection fraction of 55% with moderate pulmonary hypertension. Cardiac stress test did not show any stress-induced ischemia. Cardiology felt this was not related to acute coronary syndrome. No need for pacemaker interrogation at this time as recommended by Cardiology. Patient will be discharged home. Patient will be discharged home. Recommend follow up with his vp integrity in 1 week to follow up this hospitalization. 3. Patient found to have hypothyroidism. This was likely related to his use of amiodarone. New medication includes levothyroxine 50 mcg daily. Recommend to recheck tsh and free T4 in 4-6 weeks to monitor and adjust his medication. Patient may benefit with endocrinology evaluation as an outpatient to further monitor. 4. Patient with hypertension. At discharge he will continue with medication metoprolol 25 mg 1 pill twice daily. 5. Patient with chronic diastolic CHF. At discharge patient will continue with a 1500 cc per day fluid restriction and low-salt diet. Patient will continue with Lasix 40 mg 1 pill once daily. Patient also may continue with metolazone as directed. If his weight increases by more than 5 lb he is to contact his PCP for further recommendation. Ejection fraction around 55%. Moderate pulmonary hypertension noted. Recommend follow up with cardiology to further address and monitor. 6. Patient with atrial fibrillation on chronic anti coagulation therapy. At discharge patient continue with Eliquis 2.5 mg daily and amiodarone 200 mg 1 pill twice daily. 7. Patient with history of pacemaker defibrillator. Interrogation of pacemaker was done. 8. Patient with hyperlipidemia. At discharge he will continue with Lipitor 40 mg daily. 9. Patient with chronic renal disease stage III. This remained stable. Recommend no further use of nonsteroidal anti-inflammatories need to be renally dose. Recommend follow up with his global human resources director to further monitor. Future medications will need to be renally dose. 10. Patient with noted pancytopenia. This appears chronic. Will obtain peripheral smear to further evaluate. Will recommend recheck CBC within 1 week to monitors progress. Patient may require Hematology evaluation as an outpatient if this persists. Diet: AHA Activity: Ad alonzo Time spent managing pt's care (in minutes): 55
[2019-06-13 16:04] VITALS: O2SAT 99
[2019-06-13 16:12] VITALS: BP 119/68
[2019-06-13 16:30] VITALS: TEMP 96.9
--- NOTE | 2019-06-14 07:58 | TREADPHA ---
DX: CHEST PAIN Date of Study: 06/13/2019 Ht: 6 4 Wt: 314 lb 0 oz Consulting Physician: MAUREEN MEDICATIONS: TYLENOL, ZYLOPRIM, ELIQUIS, LIPITOR, LASIX, SYTHROID, LOPRESSOR HISTORY: 83 YEAR OLD MALE WITH HISTORY OF CONGESTIVE HEART FAILURE, HYPERTENSION, MYOCARDIAL INFARCTION, PACEMAKER, STENTS X2 AND ATRIAL FIBRILLATION. COMPLAINTS OF CHEST PAIN, PAIN FREE AT TIME OF TEST. PHYSICIAL EXAMINATION: RESTING B.P.: 153/90 RESTING H.R.: 106 RESTING EKG: ATRIAL SENSED VENTRICULAR PACED RHYTHM, SINUS TACHYCARDIA. PROTOCOL: LEXISCAN EXERCISE TIME: 3:30 B.P. AT [place]AK STRESS: 171/102 IMPRESSION: LEXISCAN STRESS TEST PERFORMED. CARDIOLITE INJECTED PER PROTOCOL. NO SUPRAVENTRICULAR TACHYCARDIA, VENTRICULAR TACHYCARDIA OR ARRYTHMIAS NOTED. PATIENT DENIED CHEST PAIN. RESPIRATORY EVEN, NON LABORED. TOLERATED WELL. SEE NUCLEAR MEDICINE REPORT. NON DIAGNOSTIC EKG WITH LEXISCAN STRESS.
== END 2019-06-13 17:26 | disposition home or self-care (01) ==
LOC: ER 15:47 → ERHOLD 17:07 → 4TH 20:18
PROVIDERS: ADMIT Family Medicine; ATTEND Family Medicine
DX: R07.9 Chest pain, unspecified (principal); I50.32 Chronic diastolic (congestive) heart failure; I13.0 Hypertensive heart and chronic kidney disease with heart failure and stage 1 through stage 4 chronic kidney disease, or unspecified chronic kidney disease; D61.818 Other pancytopenia; I25.10 Atherosclerotic heart disease of native coronary artery without angina pectoris; N18.3 Chronic kidney disease, stage 3 (moderate); I48.91 Unspecified atrial fibrillation; E78.5 Hyperlipidemia, unspecified; K21.9 Gastro-esophageal reflux disease without esophagitis; Z79.01 Long term (current) use of anticoagulants; Z95.0 Presence of cardiac pacemaker
CPT/HCPCS: 93005; 93017; 93306; 85025 ×2; 80048 ×2; 36415; 83735 ×2; 82550 ×2; 85610; 80061; 80076; 84443; 84484 ×3; 82553 ×2; 84439; 83690; 83880; 71045; 78452; 96375; 96374; 99285; J2270 ×2; J2785; J7030; J2405; A9500; G0378 ×3

== ENCOUNTER 2020-06-04 16:26 | Inpatient (IN) | payer OTHER ==
--- OUTSIDE RECORDS SUMMARY | 2020-06-04 16:28 | XMS REPORT | Clinical Summary ---
:1935 Author Organization [facility] Address [address] [place] [address] Care Team Providers Name Role Phone Celena Marcson Primary Care Provider Allergies Active Allergy Reactions Severity Noted Date Comments Sulfamethoxazole-Trimethoprim 04/13/2017 Clopidogrel 04/13/2017 Sulfa (Sulfonamide Antibiotics) 7 Medications Medication Sig Dispensed Refills Start Date End Date Status tamsulosin (FLOMAX) 0.4 Take 0.4 mg by 0 Active mg capsule,extended mouth daily. release 24hr allopurinol (ZYLOPRIM) Take 100 mg by 0 Active 100 MG tablet mouth daily. atorvastatin (LIPITOR) Take 40 mg by 0 Active 40 MG tablet mouth daily. losartan (COZAAR) 100 MG Take 100 mg by 0 Active tablet mouth daily. Active Problems Problem Noted Date Acute deep vein thrombosis (DVT) of both lower extremi ties 04/13/2017 Surgical History Surgery Date Site/Laterality Comments CARDIAC PACEMAKER PLACEMENT BACK SURGERY CORONARY ANGIOPLASTY WITH STENT PLACEMENT THROMBECTOMY, GRAFT, AV 04/22/2017 Arm Upper/N/A Procedur e: RIGHT LOWER EXTREMITY, LEFT LOWER EXTREMITY DVT WI TH MECCHANICAL THRO MBECTOMY NEED CLOTRIEVER; Ronald geon: Gabino Lora MD; L ocation: [facility] Main [facility]; Servic e: Cardiothoracic; Laterality: N/A; Medical devices from this surgery are in t he Implants section. Medical History Medical History Date Comments CHF (congestive heart failure) (HCC) Hypertension Stroke (HCC) CA (myocardial infarction) (HCC) Social History Tobacco Use Types Packs/Day Years Used Date Never Smoker Alcohol Use Drinks/Week oz/Week Comments No Sex Assigned at Date Recorded Not on file Last Filed Vital Signs Not on file Plan of Treatment Health Maintenance Due Date Last Done Comments COVID-19 VACCINE (1 of 2) 1951 SHINGLES VACCINES (#1) 1985 65+ PNEUMOCOCCAL VACCINE (1 of 1 - PPSV23) 2000 INFLUENZA VACCINE 12/09/2019 Implants Implanted Type Area Factory Lay Out Engineer Device Shelf Model / Identifier Expiration Serial / Date Lot Catheter Industrial Spraypainter 8fr 75x4cm 16mm Boling - [id number] Surgical N/A: [facility] 07/07/2019 [id number] / Implanted: 04/22/2017 at [facility] (Quantity not on file) Im plants; N/A VASCULAR / Expanders; [id number] Extenders; Surgical Wires Catheter Industrial Spraypainter 6.5fr 75x4cm 14mm Boling - [id number] Surgical N/A: [facility] 06/06/2019 [id number] / Implanted: 04/22/2017 at [facility] (Quantity not on file) Im plants; N/A VASCULAR / Expanders; [id number] Extenders; Surgical Wires Stent Endprths Trchobrncl Walstnt [id number] W/ Cath 75cm - Log [id number] Surgical N/A: [facility] 02/02/2019 [id number] / Implanted: 04/22/2017 at [facility] (Quantity not on file) St ents N/A INTERVENTION / VASCULAR RONALD [id number] Stent Endprths Trchobrncl Walstnt [id number] W/ Cath 75cm - Log [id number] Surgical N/A: [facility] 02/02/2019 [id number] / Implanted: 04/22/2017 at [facility] (Quantity not on file) St ents N/A INTERVENTION / VASCULAR RONALD [id number] Stent Endprths Trchobrncl Walstnt [id number] Metal - [id number] Surg ical N/A: [facility] 01/27/2019 [id number] / Implanted: 04/22/2017 at [facility] (Quantity not on file) St ents N/A INTERVENTION / VASCULAR RONALD [id number] Stent Endprths Trchobrncl Walstnt [id number] Metal - [id number] Surg ical N/A: [facility] 12/29/2018 [id number] / Implanted: 04/22/2017 at [facility] (Quantity not on file) St ents N/A INTERVENTION / VASCULAR RONALD [id number] Stent Endprths Trchobrncl Elianstnt [id number] Metal - [id number] Surg ical N/A: [facility] 03/02/2019 [id number] / Implanted: 04/22/2017 at [facility] (Quantity not on file) St ents N/A [employer] NASIM / [id number] Results Not on fileafter 06/04/2019 Advance Directives For more information, please contact: [phone] Type Date Recorded Patient Crime Analyst Explanati on Advance Directives, Living Will and Medical Power of Arboriculture Teacher
--- OUTSIDE RECORDS SUMMARY | 2020-06-04 16:45 | XMS REPORT | Continuity of Care Document ---
:1935 Author Organization [employer] Care Team Providers Name Role Phone [employer] Unavailable Un available Problems Problem Status Onset Classification Date Comments Sourc e Date Reported RESPIRATORY Active FAILURE, CHF 019 [facility] [address] ACUTE ON CHRONIC Active CHF 019 [facility] J44.9 - CHRONIC Active O PID OBSTRUCTIVE [address] [place] PULMONARY R0 Sick sinus syndrome 10/16/2018 018 [facility] ATRIAL Active FIBRILLATION, CAD 018 [place] ALTERED MENTAL Active STATUS 017 [facility] SENT BY Active 017 [facility] ACUTE DEEP VEIN Active THROMBOSIS OF LEFT 017 [place] LOWER CHEST PAIN AFIB Active 016 [facility] CHEST TIGHTNESS Active [place] 016 [place] Discharge 05/31/2015 [place] Diagnosis: Chronic 016 [place] and renal insufficiency Discharge 05/31/2015 [place] Diagnosis: Acute 016 [place] urinary tract infection UNABLE TO URINATE Active [place]16 [place] CHEST PAIN Active 015 [facility], M [facility] [place] Discharge 02/05/2015 Diagnosis: 015 [facility] Accidental fall Discharge 02/05/2015 Diagnosis: 015 [facility] Contusion of hip FLANK PAIN Active 015 [facility] 722.93 - DISC DIS Active [place] NEC/NO 724.02 - 015 [place] "SPIN SPITTING UP BLOOD, Active M H [place] COUGHING UP MUCUS [address] [place] Discharge 07/08/2014 [place] Diagnosis: 015 [place] Hemoptysis 785.6 - ENLARGEMENT Active OPID LYM 014 [facility] MEDISTINAL Active LYMPADENOPATHY 014 [facility] HEMOPTYSIS Active 014 [facility] ACS, CHEST PAIN Active 014 [place] MULTIFOCAL Active PNEUMONIA, 014 [facility] HEMOPTYSIS, ACS, C A-FIB, TACHYCARDIA Active [facility] 014 [facility] MEDIASTINAL Active [place] LYMPHADENOPATHY 013 [place] 486 - "PNEUMONIA, Active OPID ORGA" 013 [place] ACUTE OR, NSTEMI Active 012 [facility] LUMBAR SPINAL Active Dariel as STENOSIS 012 [facility] [place] LUMBAR STENOSIS, Active [facility] LUMBAR [address] [place] [address] RADICULOPATHY Center GI BLEED Active [place]12 [place] CHEST PAIN, Active THROMBOCYTOPENIA 012 [place] BIJAL Active [place]12 [place] Cardiac Active Problem 12/03/2018 [place] catheterization 011 [place] (procedure) [facility], [facility] [place] Cardiac Active Problem 07/23/2012 [place] catheterization 011 [facility], OPID [place], [facility] [place] ATRIAL FIB, Active UNSTABLE ANGINA 011 [place] TEAR MEDIAL Active [place] MENISCUS 011 [place] BLOOD IN STOOL Active [place] 011 [place] Illness, 12/03/2018 unspecified [place] Atrial fibrillation Active Problem 12/03/2018 [place] (disorder) [place], [facility] [place] Asbestosis Active Problem 12/03/2018 [place] (disorder) [place], [place] Congestive heart Active Problem 12/03/2018 OPID failure (disorder) [place],[facility], [facility] [place] Cerebrovascular Resolved Problem 12/03/2018 [facility] accident (disorder) [place], [facility] [place] Diabetes mellitus Resolved Problem 12/03/2018 pt states he is not a diabetic OPID (disorder) PATIENT STATES HE I S NOT A DIABETIC [place] border line [facility], [facility] [place] Dizziness (finding) Active Problem 12/03/2018 OPID [place], [facility] [place] Deep venous Active Problem 12/03/2018 OPID thrombosis of lower [place] extremity [facility], (disorder) [facility] ,[facility] [place] Gout (disorder) Active Problem 12/03/2018 OPID [place], [facility] [place] Hypertensive Active Problem 12/03/2018 OPI D disorder, systemic [place] arterial (disorder) [place],[facility], [facility] [place] Myocardial Active Problem 12/03/2018 OPID infarction [place] (disorder) [place],[facility], [facility] [place] 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 [place] (disorder) [place],[facility], [facility] [place] Morbid obesity Active Problem 12/03/2018 O PID (disorder) [place],[facility] Pain (finding) Active Problem 12/03/2018 O PID [place], [facility] [place] Pneumonia Resolved Problem 12/03/2018 [facility] (disorder) [place], [facility] [place] Sleep apnea Active Problem 12/03/2018 [facility] (finding) [place], [facility] [place] 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 Hypertensive heart 10/16/2018 and chronic kidney [place] disease with heart failure and stage 1 through stage 4 chronic kidney disease, or unspecified chronic kidney disease Paroxysmal atrial 10/16/2018 M H fibrillation [facility] st Encounter for 10/16/2018 immunization [place] Metabolic syndrome 10/16/2018 [facility] Morbid (severe) 10/16/2018 obesity due to [facility] excess calories 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 [place] 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 Chronic kidney 10/16/2018 disease, stage 3 [place] (moderate) Hyperlipidemia, 10/16/2018 unspecified [place] Bronchitis, not 10/16/2018 specified as acute [place] or chronic Unspecified 10/16/2018 osteoarthritis, [place] unspecified site Gout, unspecified 10/16/2018 M H [facility] Presence of cardiac 10/16/2018 pacemaker [facility] Personal history of 10/16/2018 nicotine dependence [facility] 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 [place] [place], OPID [place], [facility] [place] Dizziness Active Problem 08/30/2011 [facility], [facility] [place] Nausea Inactive Problem 07/23/[address] [facility], OPID [place], [place] AF - Atrial Active Problem 07/23/2012 [place] [facility], OPID [place], [place] Cough Inactive Problem 07/23/[address] [facility] [place], OPID [place], [place] Atrial fibrillation Active Problem 07/23/2012 [place] CHF - Congestive Resolved Problem 07/23/2012 [place] heart failure [place] Diabetes mellitus Active Problem 07/23/2012 [place] Dizziness Active Problem 07/23/[address] [facility] [place] [place], OPID [place], [place] DVT - Deep vein Resolved Problem 07/23/2012 [place] thrombosis of lower [place] limb [place], [place] Fusion Active Problem 07/23/[address] [facility], OPID [place], [place] HTN - Hypertension Active Problem 07/23/2012 [place] Pain Active Problem 07/23/[address] [facility], OPID [place], [facility] [place] Sleep apnea Active Problem 07/23/2012 [place] Fused structure Active Problem 03/14/2016 (morph[address] [place],M abnormality) [place] CHEST PAIN NOS Active [place] ATRIAL FIBRILLATION Active [facility] ANGINA DECUBITUS Active [facility] SLEEP APNEA NOS Active [place] GASTROINTEST HEMORR Active [place] LUMB/LUMBOSAC DISC Active [facility] SPIN STEN,LUMBR WO Active [facility] LUMBOSACRAL Active [facility] SPONDYLOSIS [facility] AMI NOS-INITIAL Active EPISODE [place] PNEUMONIA, ORGANISM Active NOS [facility] ENLARGEMENT LYMPH Active MH NODES [facility] CHEST PAIN, Active MH UNSPECIFIED ILLNESS, Active MH UNSPECIFIED ACUTE EMBOLISM AND Active M H THOMBOS UNSP DEEP [place] VEI SYNCOPE AND Active MH COLLAPSE [facility] ANEMIA, UNSPECIFIED Active MH [facility] UNSPECIFIED ATRIAL Active M H FIBRILLATION [place] HEART FAILURE, Active MH UNSPECIFIED BENIGN PROSTATIC Active MH HYPERPLASIA WITH [place] LOWER RECURRENT AND PERST Active MH HEMATURIA W UNSP [place] MOR Medications Medication Details Route Status Patient Ordering Order Source Instructions Provider Date carvedilol 3.125 3.125 mg = 1 Active mg oral tablet tab, PO, 2018 [facility] Q12H, 0 Refill(s) atorvastatin Notes: (Same Inactive as: Lipitor) 2019 [facility] Allopurinol Notes: (Same Inactive as: 2018 [facility] Zyloprim) gabapentin 100 Notes: (Same No Longer MG Oral Capsule as: Active 2018 [facility] Neurontin) Eliquis Notes: Same No Longer as: Eliquis Active 2018 [facility] Amiodarone Notes: (Same No Longer as: Active 2018 [facility] Cordarone) Saline Flush Notes: Same No Longer 0.9% as: BD Active 2018 [facility] Posiflush Sterile Furosemide Notes: (Same No Longer as: Lasix) Active 2018 [facility] carvedilol Notes: Give No Longer with food. Active 2018 [facility] (Same As: Coreg) Aspirin 81 MG Notes: Do No Longer Enteric Coated not crush or Active 2018 [place] Tablet chew. (Same As: Ecotrin) Acetaminophen Notes: Do No Longer 300 MG / Codeine not exceed Active 2018 [place] Phosphate 30 MG 4gm/day of Oral Tablet acetaminophe [Tylenol with n. (Same Codeine #3] as: Tylenol with Codeine # 3) Saline Flush Notes: Same No Longer 0.9% as: BD Active 2018 [facility] Posiflush Sterile apixaban 2.5 MG 2.5 mg, PO, Active Oral Tablet BID, 0 2018 [facility] [Eliquis] Refill(s) atorvastatin 40 40 mg = 1 Active mg oral tablet tab, PO, 2018 [facility] Daily, 0 Refill(s) losartan 100 mg 100 mg = 1 No Longer oral tablet tab, PO, Active 2018 [facility] Daily, 0 Refill(s) Acetaminophen 1 tab, PO, Active 325 MG / Q6H, PRN 2018 [facility] Hydrocodone Pain, 0 Bitartrate 10 MG Refill(s) Oral Tablet apixaban 2.5 MG 2.5 mg, PO, Active Oral Tablet Q12H, # 60 2017 [facility] [Eliquis] tab, 0 Refill(s), called to pharmacy AMIODarone 200 200 mg = 1 Active mg oral tablet tab, PO, 2017 [facility] t BID, 0 Refill(s) metoprolol 25 mg = 1 Active tartrate 25 mg tab, PO, 2017 [facility] t oral tablet Q12H, 0 Refill(s) Amiodarone Notes: (Same No Longer as: Active 2017 [facility] Cordarone) Fentanyl 100 Inactive microgram, 2017 [facility] Route: IV, ONCE, Dosing Weight 137.727, kg, Start date: 03/28/18 14:12:00 RELIABILITY ENGINEER, Stop date: 03/28/18 14:12:00 RELIABILITY ENGINEER Midazolam 2 mg, Route: Inactive IV, ONCE, 2017 [facility] Dosing Weight 137.727, kg, Start date: 03/28/18 14:12:00 RELIABILITY ENGINEER, Stop date: 03/28/18 14:12:00 RELIABILITY ENGINEER metoprolol Notes: (Same No Longer tartrate as: Active 2017 [facility] Lopressor) Warfarin Notes: Nurse No Longer to ensure Active 2017 [facility] documentatio n of patient education per anticoagulat ion policy. Avoid large intake of vitamin-K containing foods diet. (Same As: Coumadin) WASTE: F/P - P Waste Black; E - P Waste [place] metoprolol Notes: (Same Inactive tartrate as: 2017 [facility] Lopressor) Furosemide 40 MG Notes: (Same Inactive H Oral Tablet as: Lasix) 2017 [facility] May cause GI upset. Give with food or milk. Amiodarone Notes: (Same No Longer as: Active 2017 [facility] Cordarone) Warfarin Notes: Nurse Inactive to ensure 2017 [facility] documentatio n of patient education per anticoagulat ion policy. Avoid large intake of vitamin-K containing foods diet. (Same As: Coumadin) WASTE: F/P - P Waste Black; E - P Waste Black Insulin Lispro Notes: (Same No Longer as: Humalog Active 2017 [facility] ) Roll in palms of hands gently; Do not shake `vigorously. "Single Patient Use Only " WASTE: F/P - Black; E - Municipal Trash Bin Stable for 28 days at room temperature. Expires in days from __Date Glucagon 1 mg, Route: No Longer IM, Drug Active 2017 [facility] form: PDR/INJ, PRN, Dosing Weight 137.727, kg, PRN Blood Glucose Results, Start date: 03/26/18 12:50:00 RELIABILITY ENGINEER, Duration: 30 day, Stop date: 04/25/18 12:49:00 RELIABILITY ENGINEER Dextrose 50% 12.5 gm, 25 No Longer Syringe mL, Route: Active 2017 [facility] IVP, Drug Form: INJ, Dosing Weight 137.727, kg, PRN, PRN Blood Glucose Results, Start date: 03/26/18 12:50:00 RELIABILITY ENGINEER, Duration: 30 day, Stop date: 04/25/18 12:49:00 RELIABILITY ENGINEER Senokot Notes: (Same No Longer as: Senokot) Active 2017 [facility] docusate sodium Notes: (Same No Longer H 100 mg oral as: Colace) [email or web address] (Do Not Crush) Allopurinol Notes: (Same No Longer as: Active 2017 [facility] Zyloprim) Amoxicillin / Notes: With Inactive Clavulanate food. (Same 2017 [facility] t as: Augmentin 875) Prednisone Route: PO, Inactive Daily, 2017 [facility] Dosing Weight 137.727, kg, Start date: 03/26/18 9:00:00 RELIABILITY ENGINEER, Duration: 30 day, Stop date: 04/24/18 9:00:00 RELIABILITY ENGINEER Losartan Notes: (Same No Longer as: Cozaar) Active 2017 [facility] Aspirin 81 MG Notes: Do No Longer Enteric Coated not crush or Active 2017 [place] Tablet chew. (Same As: Ecotrin) Lovenox Notes: (Same No Longer as: Lovenox) Active 2017 [facility] atorvastatin Notes: (Same No Longer as: Lipitor) Active 2017 [facility] DuoNeb Notes: (Same No Longer inhalation as: Duoneb) Active 2017 [facility] solution Amiodarone Notes: (Same No Longer as: Active 2017 [facility] Cordarone) gabapentin 100 Notes: (Same No Longer MG Oral Capsule as: [facility]) SENOKOT-S 1 tab, Inactive Route: PO, 2017 [facility] Dosing Weight 137.727, kg, BID, Start date: 03/25/18 17:00:00 RELIABILITY ENGINEER, Duration: 30 day, Stop date: 04/24/18 9:00:00 RELIABILITY ENGINEER carvedilol Notes: Give No Longer with food. Active 2017 [facility] (Same As: Coreg) 200 ACTUAT 2 puff, Inactive Albuterol 0.09 Route: 2017 [facility] MG/ACTUAT / INHALER, Ipratropium Drug Form: [place] 0.018 AERO/A, MG/ACTUAT Dosing Metered Dose Weight Inhaler 137.727, kg, [Combivent] BID, PRN Wheezing, Start date: 03/25/18 16:51:00 RELIABILITY ENGINEER, Duration: 30 day, Stop date: 04/24/18 16:50:00 RELIABILITY ENGINEER gabapentin 100 200 mg = 2 Active MG Oral Capsule cap, PO, 2017 st BID, 0 Refill(s) Warfarin See No Longer Instructions Active 2017 [facility] , 1 mg PO EVERY OTHER DAY, 0 Refill(s) Augmentin 875 mg, PO, No Longer Daily, # 20 Active 2017 [facility] tab, 0 Refill(s) carvedilol 25 mg, PO, Active BID, 0 2017 [facility] Refill(s) Losartan 100 mg, PO, No Longer Daily, 0 Active 2017 [facility] Refill(s) warfarin 2.5 mg 2.5 mg = 1 No Longer oral tablet tab, PO, Active 2017 [facility] Daily, 0 Refill(s) Prednisone See No Longer Instructions Active 2017 [facility] , 4 TABS DAILY FOR 4 DAYS SINCE WEDNESDAY,THEN 3 TABS DAILY FOR 4 DAYS,2 TABS DAILY FOR 4 DAYS,THEN 1 TAB DAILY FOR 4 DAYS, 0 Refill(s) Aspirin 81 MG 81 mg = 1 Active Enteric Coated tab, PO, 2018 [place] Tablet Daily, # 90 tab, 3 Refill(s) Losartan Notes: (Same No Longer as: Cozaar) Active 2016 [facility] Allopurinol Notes: (Same No Longer as: Active 2016 [facility] Zyloprim) atorvastatin Notes: (Same No Longer as: Lipitor) Active 2016 [facility] tamsulosin Notes: (Same No Longer As: Flomax) Active 2016 [facility] "Do Not Crush" Acetaminophen Notes: Do No Longer 300 MG / Codeine not exceed Active 2016 [place] Phosphate 30 MG 4gm/day of Oral Tablet acetaminophe [Tylenol with n. (Same Codeine #3] as: Tylenol with Codeine # 3) Furosemide Notes: (Same No Longer as: Lasix) Active 2016 [facility] May cause GI upset. Give with food or milk. SENOKOT-S 1 tab, Inactive Route: PO, 2016 [facility] Dosing Weight 145.909, kg, BID, Start date: 04/08/17 17:00:00 RELIABILITY ENGINEER, Duration: 30 day, Stop date: 05/08/17 9:00:00 RELIABILITY ENGINEER carvedilol Notes: Give No Longer with food. Active 2016 [facility] (Same As: Coreg) Senokot Notes: (Same No Longer as: Senokot) Active 2016 [facility] 200 ACTUAT Notes: Same No Longer Albuterol 0.09 as: Active 2016 [facility] MG/ACTUAT / Combivent Ipratropium Respimat [place] 0.018 WASTE: MG/ACTUAT Aerosol - Metered Dose Return to [facility] [Combivent] Insulin Lispro Notes: Roll No Longer in palms of 2016 [facility] hands gently; Do not shake `vigorously. (Same as: Humalog ) "Single Patient Use Only " WASTE: F/P - Black; E - Municipal Trash Bin Stable for 28 days at room temperature. Expires in days from __Date Glucagon 1 mg, Route: No Longer IM, Drug Active 2016 [facility] form: PDR/INJ, PRN, Dosing Weight 145.909, kg, PRN Blood Glucose Results, Start date: 04/08/17 16:41:00 RELIABILITY ENGINEER, Duration: 30 day, Stop date: 05/08/17 16:40:00 RELIABILITY ENGINEER Dextrose 50% 25 gm, 50 No Longer Syringe mL, Route: Active 2016 [facility] IVP, Drug Form: INJ, Dosing Weight 145.909, kg, PRN, PRN Blood Glucose Results, Start date: 04/08/17 16:41:00 RELIABILITY ENGINEER, Duration: 30 day, Stop date: 05/08/17 16:40:00 RELIABILITY ENGINEER carvedilol 25 mg 25 mg = 1 No Longer oral tablet tab, PO, 2016 [facility] BID, # 180 tab, 0 Refill(s) Moni Notes: Inactive (polyethylen 2016 e glycol electrolyte solution 4 Liter bottle) (Same as: Golytely, Colyte) Acetaminophen Notes: Do No Longer 300 MG / Codeine not exceed Active 2016 [place] Phosphate 30 MG 4gm/day of Oral Tablet acetaminophe [Tylenol with n. (Same Codeine #3] as: Tylenol with Codeine # 3) Acetaminophen Notes: Do Inactive 300 MG / Codeine not exceed 2017 [place] Phosphate 30 MG 4gm/day of Oral Tablet acetaminophe [Tylenol with n. (Same Codeine #3] as: Tylenol with Codeine # 3) Amlodipine Notes: (Same No Longer as: Norvasc) Active 2016 [facility] Potassium Notes: (Same Inactive Chloride as: K-Dur 2017 [place] 20) "Do Not Crush" With food and full glass of water tramadol Notes: Not Inactive hydrochloride 50 to exceed 2016 [facility] MG Oral Tablet 400mg/day. (Same As: Ultram) Tylenol Notes: Do No Longer not exceed 4 Active 2016 [facility] gm/day. (Same as: Tylenol) Protonix Notes: No Longer Tablet Active 2016 [facility] should not be chewed or crushed. (Same as: Protonix) Enoxaparin Notes: Nurse No Longer to ensure Active 2016 [facility] documentatio n of patient education per anticoagulat ion policy. (Same as: Lovenox) Coumadin Notes: Nurse Inactive to ensure 2016 [facility] documentatio n of patient education per anticoagulat ion policy. Avoid large intake of vitamin-K containing foods diet. (Same As: Coumadin) WASTE: F/P - P Waste Black; E - P Waste Black Potassium Notes: (Same Inactive Chloride as: K-Dur 2016 [facility] ) "Do Not Crush" With food and full glass of water argatroban 100 Notes: No Longer MG/ML Injectable Argatroban Active 2016 [place] Solution 50 mg/ 50 ml inj (1mg/1ml) WASTE: F/P - Black; E - Municipal Trash Bin MEDICATION WASTE Product Size: 50 mg Product Wasted: ___ mg bivalirudin 50 250 mg, 250 Inactive MG/ML Injectable mL, Rate: 2016 [facility] Solution Start at 0.05 mg/kg/hr, Dosing Weight 147.909, kg, Route: IV, Total Volume: 250, Start Date: 03/17/17 11:37:00 RELIABILITY ENGINEER, Duration: 30 day, Stop date: 04/16/17 11:36:00 RELIABILITY ENGINEER, Replace Every: 24 hr bivalirudin 50 250 mg, 250 Inactive MG/ML Injectable mL, Rate: 2016 [facility] Solution Start at 0.05 mg/kg/hr, Dosing Weight 147.909, kg, Route: IV, Total Volume: 250, Start Date: 03/17/17 11:35:00 RELIABILITY ENGINEER, Duration: 30 day, Stop date: 04/16/17 11:34:00 RELIABILITY ENGINEER, Replace Every: 24 hr Losartan Notes: (Same No Longer as: Cozaar) Active 2016 [facility] Furosemide Notes: (Same No Longer as: Lasix) Active 2016 [facility] May cause GI upset. Give with food or milk. carvedilol Notes: Give No Longer with food. Active 2016 [facility] (Same As: Coreg) Allopurinol Notes: (Same No Longer as: Active 2016 [facility] Zyloprim) Potassium Notes: (Same Inactive Chloride as: K-Dur 2016 [facility] 20) "Do Not Crush" With food and full glass of water Lovenox Notes: Nurse Inactive to ensure 2016 [facility] documentatio n of patient education per anticoagulat ion policy. (Same as: Lovenox) Senokot Notes: (Same No Longer as: Senokot) Active 2016 [facility] tamsulosin Notes: (Same No Longer As: Flomax) Active 2016 [facility] "Do Not Crush" SENOKOT-S 2 tab, Inactive Route: PO, 2016 [facility] Dosing Weight 147.909, kg, Bedtime, Start date: 03/16/17 21:00:00 RELIABILITY ENGINEER, Duration: 30 day, Stop date: 04/14/17 21:00:00 RELIABILITY ENGINEER atorvastatin Notes: (Same No Longer as: Lipitor) Active 2016 [facility] 200 ACTUAT Notes: Same No Longer Albuterol 0.09 as: Active 2016 [facility] MG/ACTUAT / Combivent Ipratropium Respimat [place] 0.018 WASTE: MG/ACTUAT Aerosol - Metered Dose Return to [facility] [Combivent] Streptococcus Notes: Shake Inactive pneumoniae well prior 2016 [facility] serotype 1 to use capsular antigen (Same as: diphtheria Prevnar 13) [id number] protein conjugate vaccine / Streptococcus pneumoniae serotype 14 capsular antigen diphtheria [id number] protein conjugate vaccine / Streptococcus pneumoniae serotype 18C capsular antigen d carvedilol 25 mg 25 mg = 1 No Longer oral tablet tab, PO, Active 2016 [facility] BID, 0 Refill(s) Furosemide 40 mg, PO, Active BID, 0 2016 [facility] Refill(s) tamsulosin 0.4 mg, PO, Active Bedtime, 0 2016 [facility] Refill(s) Losartan 100 mg, PO, Active Daily, 0 2016 Refill(s) sodium chloride 1,000 mL, No Longer 0.9% 1000 ml INJ Rate: 75 Active 2016 [facility] est 1,000 mL ml/hr, Infuse over: 13.3 hr, Route: IV, Dosing Weight 147.909 kg, Total Volume: 1,000, Start date: 03/16/17 17:43:00 RELIABILITY ENGINEER, Duration: 30 day, Stop date: 04/15/17 17:42:00 RELIABILITY ENGINEER Lovenox Notes: Nurse Inactive to ensure 2016 [facility] documentatio n of patient education per anticoagulat ion policy. (Same as: Lovenox) carvedilol 25 mg 25 mg = 1 Active oral tablet tab, PO, 2015 [facility] Q12H, # 180 tab, 0 Refill(s) AMIODarone 200 200 mg = 1 Active mg oral tablet tab, PO, 2015 [facility] t BID-Meals, # 90 tab, 0 Refill(s) Amlodipine Notes: (Same Inactive as: Norvasc) 2015 carvedilol Notes: Give No Longer with food. Active 2015 [facility] (Same As: Coreg) Amiodarone Notes: (Same No Longer as: Active 2015 [facility] Cordarone) Sodium Chloride 250 mL, No Longer 0.9% IV Route: IVPB, Active 2015 [facility] Start date: 03/10/16 15:01:00 CDT, Duration: 30 day, Stop date: 04/09/16 14:00:00 RELIABILITY ENGINEER, PRN Line Flush BD Normal Saline Notes: (Same No Longer Flush as: BD Active 2015 [facility] Posiflush) Losartan Notes: (Same No Longer as: Cozaar) Active 2015 Furosemide 40 MG Notes: (Same Inactive H Oral Tablet as: Lasix) 2015 May cause GI upset. Give with food or milk. Hydralazine Notes: (Same Inactive Hydrochloride 50 as: 2015 st [facility] Oral Tablet Apresoline) May interfere w/enteral feedings Take With Food Amoxicillin 875 Notes: With No Longer MG / Clavulanate food. (Same Active 2015 [facility] thwest 125 MG Oral as: Tablet Augmentin 875) Amlodipine Notes: (Same Inactive as: Norvasc) 2015 [facility] Allopurinol Notes: (Same No Longer as: Active 2015 [facility] Zyloprim) Lyrica Notes: (Same No Longer as: Lyrica) Active 2015 [facility] SENOKOT-S 2 tab, Inactive Route: PO, 2015 [facility] Dosing Weight 132.727, kg, Bedtime, Start date: 03/09/16 21:00:00 CDT, Duration: 30 day, Stop date: 04/07/16 21:00:00 RELIABILITY ENGINEER atorvastatin Notes: (Same No Longer as: Lipitor) Active 2015 [facility] Alprazolam 0.5 Notes: With No Longer MG Oral Tablet food or milk [facility] (Same as: Xanax) Senokot Notes: (Same No Longer as: Senokot) Active 2015 [facility] Colchicine 0.6 0.6 mg, 1 No Longer MG Oral Tablet tab, Route: Active 2015 [facility] PO, Drug form: TAB, BID, Dosing Weight 132.727, kg, PRN Shortness of breath, Start date: 03/09/16 19:58:00 CDT, Duration: 30 day, Stop date: 04/08/16 19:57:00 RELIABILITY ENGINEER 200 ACTUAT Notes: Same No Longer Albuterol 0.09 as: Active 2015 [facility] MG/ACTUAT / Combivent Ipratropium Respimat [place] 0.018 WASTE: MG/ACTUAT Aerosol - Metered Dose Return to [facility] Pharmacy [Combivent] acetaminophen-hy Notes: (Same No Longer drocodone 325 as: [place] Active 2015 [facility] t mg-5 mg oral 325/5) Do tablet not exceed 4gm/day of acetaminophe n. Amoxicillin 875 1 tab, PO, No Longer MG / Clavulanate BID, # 20 Active 2015 [facility] 125 MG Oral tab, 0 Tablet Refill(s) Hydralazine 50 mg = 1 No Longer Hydrochloride 50 tab, PO, Active 2015 [facility] est MG Oral Tablet TID, # 90 tab, 3 Refill(s) Lasix Notes: (Same Inactive Sugar as: Lasix) 2015 [facility]ASTE Product Size: 40 mg Product Wasted: ___ mg Aspirin Notes: Take Inactive Sugar with food. 2015 pregabalin 200 200 mg = 1 Active Sug ar MG Oral Capsule cap, PO, 2015 [Lyrica] BID, # 30 cap, 1 Refill(s) allopurinol 100 100 mg = 1 Active [facility] mg oral tablet tab, PO, 2015 Daily, # 90 tab, 1 Refill(s) losartan 100 mg 100 mg = 1 Active [facility] oral tablet tab, PO, 2015 Daily, # 90 tab, 1 Refill(s) Alprazolam 0.5 0.5 mg = 1 Active Sug ar MG Oral Tablet tab, PO, 2015 Bedtime, # 30 tab, 0 Refill(s) Albuterol 0.833 Notes: (Same No Longer H Sugar MG/ML / as: Duoneb) Active 2015 Ipratropium [place] 0.167 MG/ML Inhalant Solution [DuoNeb] Nitroglycerin Notes: (Same No Longer Sugar 0.4 MG as:Nitroquic Active 2015 Sublingual k, Tablet Nitrostat) "Do Not Crush" Sublingual tablet Enoxaparin Notes: (Same No Longer Sug ar as: Lovenox) Active 2015 [facility] Docusate Notes: (Same No Longer Sugar as: Colace) Active 2015 (Do Not Crush) Acetaminophen Notes: Do No Longer Sug ar not exceed 4 Active 2015 [facility] gm/day. (Same as: Tylenol) Ondansetron Notes: (Same No Longer Blake gar as: Zofran) Active 2015 [facility] Product Size: 4 mg Product Wasted: ___ mg Morphine Notes: (Same No Longer Sugar as:MORPhine Active 2015 [facility] Sulfate) Acetaminophen Notes: (Same No Longer Sugar 325 MG / as: [place] Active 2015 Hydrocodone 325/5) Do Bitartrate 5 MG not exceed Oral Tablet 4gm/day of acetaminophe n. Lasix Notes: (Same Inactive Sugar as: Lasix) 2015 [facility] Product Size: 40 mg Product Wasted: __20_ mg Aspirin Notes: Take Inactive Sugar with food. 2015 Nitroglycerin Notes: (Same No Longer Sugar as:Nitroquic Active 2015 [facility] k, Nitrostat) "Do Not Crush" Sublingual tablet Saline Flush Notes: (Same No Longer S ugar 0.9% as: BD Active 2015 [facility] Posiflush) Nitrofurantoin 100 mg = 1 Active Sug ar 100 MG Oral cap, PO, 2015 [facility] Capsule BID, X 10 [Macrobid] day, # 20 cap, 0 Refill(s) Rocephin Notes: (Same Inactive Sugar As: 2015 Rocephin). Use with 100 mL NS and infuse over 30 min MEDICATION WASTE Product Size: 1000 mg Product Wasted: ___ mg Keflex 500 mg, No Longer Route: PO, Active 2014 [facility] Drug form: CAP, ABXQ6H, Dosing Weight 130.004, kg, Start date: 04/24/15 16:14:00, Duration: 30 day, Stop date: 05/24/15 10:14:00 Cephalexin 500 500 mg = 1 Active MG Oral Capsule cap, PO, 2014 [facility] [Keflex] QID, X 5 day, # 20 cap, 0 Refill(s) Cefazolin 1 gm, 100 No Longer mL, Route: Active 2014 [facility] IVPB, Drug form: INJ, ABXQ8H, Dosing Weight 130.004, kg, Start date: 04/23/15 17:00:00, Duration: 3 doses or times, Stop date: 04/24/15 9:00:00 morphine Sulfate Notes: (Same No Longer as:MORPhine Active 2014 [facility] Sulfate) Senokot Notes: (Same No Longer as: Senokot) Active 2014 [facility] SENOKOT-S 2 tab, Inactive Route: PO, 2014 [facility] Dosing Weight 130.004, kg, Bedtime, Start date: 04/21/15 21:00:00, Duration: 30 day, Stop date: 05/20/15 21:00:00 atorvastatin Notes: (Same No Longer as: Lipitor) Active 2014 Colchicine 0.6 0.6 mg, 1 No Longer MG Oral Tablet tab, Route: Active 2014 [facility] PO, Drug form: TAB, Daily, Dosing Weight 130.004, kg, PRN Pain Score 4-6, Start date: 04/21/15 12:20:00, Stop date: 05/21/15 12:19:00 Colchicine 0.6 0.6 mg = 1 Active MG Oral Tablet tab, PO, 2014 [facility] t Daily, PRN Other -See Comment, For GOUT flare up, 0 Refill(s) Amoxicillin 875 Notes: With No Longer MG / Clavulanate food. (Same Active 2014 [facility] 125 MG Oral as: Tablet Augmentin 875) Amlodipine Notes: (Same No Longer as: Norvasc) Active 2014 [facility] Amiodarone Notes: (Same No Longer as: Active 2014 [facility] Cordarone) Colchicine 0.6 0.6 mg, 1 Inactive MG Oral Tablet tab, Route: 2014 [facility] PO, Drug form: TAB, Daily, Dosing Weight 130.004, kg, Start date: 04/21/15 9:00:00, Duration: 30 day, Stop date: 05/20/15 9:00:00 Furosemide 40 MG Notes: (Same No Longer Oral Tablet as: Lasix) Active 2014 May cause GI upset. Give with food or milk. Lovenox Notes: (Same No Longer as: Lovenox) Active 2014 [facility] metoprolol Notes: (Same No Longer as: Toprol Active 2014 [facility] XL) May split tab, but do not crush. gabapentin 300 Notes: (Same No Longer MG Oral Capsule as: Active 2014 [facility] t Neurontin) Hydralazine Notes: (Same No Longer as: Active 2014 Apresoline) May interfere w/enteral feedings Take With Food Lyrica Notes: Same No Longer as Lyrica Active 2014 [facility] 200 ACTUAT Notes: Same No Longer Albuterol 0.09 as: Active 2014 MG/ACTUAT / Combivent Ipratropium Respimat [place] 0.018 MG/ACTUAT Metered Dose Inhaler [Combivent] Alprazolam Notes: With No Longer food or milk Active 2014 (Same as: Xanax) nitroglycerin 2% Notes: 1 No Longer topical ointment gram is Active 2014 st approximatel y 1 inch of nitroglyceri n ointment (20 mg NTG per gram) (Same as:Nitro-Bid ) Furosemide 40 MG 40 mg = 1 Active Oral Tablet tab, PO, 2014 BID, 0 Refill(s) SENOKOT-S 2 tab, PO, Active Bedtime, 0 2014 Refill(s) amLODIPine 10 mg 10 mg = 1 Active oral tablet tab, PO, 2014 Daily, 0 Refill(s) Amoxicillin 875 1 tab, PO, No Longer MG / Clavulanate BID, # 20 Active 2014 [facility] 125 MG Oral tab, 0 Tablet Refill(s) Protonix Notes: No Longer Tablet Active 2014 should not be chewed or crushed. (Same as: Protonix) Hydralazine 50 mg, PO, Active TID, 0 2014 Refill(s) Colchicine 0.6 0.6 mg = 1 Inactive MG Oral Tablet tab, PO, 0 2014 est Refill(s) pregabalin 50 MG 50 mg = 1 Active Oral Capsule cap, PO, 2014 [Lyrica] PRN, daily PRN, 0 Refill(s) Sodium Chloride 250 mL, No Longer 0.9% IV Route: IVPB, Active 2014 Start date: 04/21/15 1:09:00, Duration: 30 day, Stop date: 05/21/15 1:08:00, PRN Line Flush BD Normal Saline Notes: (Same No Longer Flush as: BD Active 2014 [facility] Posiflush) acetaminophen-co Notes: Do No Longer deine 300 mg-30 not exceed Active 2014 [facility] mg oral tablet 4gm/day of acetaminophe n. (Same as: Tylenol with Codeine # 3) tramadol 50 mg = 1 No Longer hydrochloride 50 tab, PO, Active 2014 [facility] est MG Oral Tablet Q4H, PRN [Ultram] pain, # 20 tab, 0 Refill(s) Acetaminophen Notes: (Same Inactive 325 MG / as: [place] 2014 [facility] Hydrocodone 325/5) Do Bitartrate 5 MG not exceed Oral Tablet 4gm/day of [[place] 5/325] acetaminophe n. Saline Flush Notes: (Same Inactive 0.9% as: BD 2014 [facility] Posiflush) Barium Sulfate Notes: Same Inactive as Readi-Cat 2014 [facility] 2 Morphine Notes: (Same Inactive as:MORPhine 2014 [facility] Sulfate) Saline Flush Notes: (Same Inactive Blake gar 0.9% as: 2014 [facility] Posiflush) acetaminophen-co Notes: Do Inactive deine #3 not exceed 2013 [facility] 4gm/day of acetaminophe n. (Same as: Tylenol with Codeine # 3) Acetaminophen Notes: Do Inactive not exceed 4 2013 [facility] gm/day. (Same as: Tylenol) gabapentin 300 600 mg = 2 Active MG Oral Capsule cap, PO, 2013 [facility] [address] TID, 0 Refill(s) Zinacef Notes: (Same No Longer As: Kefurox, Active 2013 [facility] Zinacef) Hydralazine Notes: (Same Inactive Hydrochloride 50 as: 2013 [facility] [address] MG Oral Tablet Apresoline) May interfere w/enteral feedings Take With Food Hydralazine 50 mg = 1 Active Hydrochloride 50 tab, PO, 2013w est MG Oral Tablet TID, # 90 tab, 0 Refill(s) Aspirin 325 MG 325 mg, PO, Active [facility] Daily, # 100 [address] [place] Tablet tab, 0 Refill(s) Potassium Notes: (Same Inactive Chloride 20 MEQ as: K-Dur 2013 est Extended Release 20) "Do Not Tablet Crush" With food and full glass of water Bumex Notes: (Same Inactive As: Bumex) 2013 [facility] Neurontin Notes: (Same No Longer as: Active 2013 [facility] Neurontin) gabapentin 400 400 mg = 1 Active MG Oral Capsule cap, PO, [address] [facility] [address] TID, # 90 cap, 0 Refill(s) Pradaxa Notes: DO Inactive NOT break, 2013 [facility] chew or open capsules for administrati on. 120 ACTUAT 2 Active Budesonide 0.16 inhalation, 2013 [facility] [place] MG/ACTUAT / INHALATION, formoterol Q12H, # 10 fumarate 0.0045 gm, 0 MG/ACTUAT Refill(s) Metered Dose Inhaler [Symbicort] valsartan 160 mg 160 mg = 1 No Longer oral tablet tab, PO, Active 2013 [facility] Daily, # 30 tab, 0 Refill(s) Furosemide 40 MG 40 mg = 1 Active Oral Tablet tab, PO, 2013 [facility] BID, # 60 tab, 0 Refill(s) Lasix Notes: (Same No Longer as: Lasix) Active 2013 May cause GI upset. Give with food or milk. Diovan Notes: Same No Longer as Diovan Active 2013 [facility] homatropine-hydr Notes: (Same No Longer ocodone as: Hycodan, Active 2013 [facility] Hydromet) 120 ACTUAT Notes: (Same No Longer Budesonide 0.16 as: Active 2013s t MG/ACTUAT / Symbicort) formoterol fumarate 0.0045 MG/ACTUAT Metered Dose Inhaler [Symbicort] 12 HR 5 ml, Route: Inactive Chlorpheniramine PO, Drug 2013 [facility] est Maleate 1.6 Form: MG/ML / SUSPER, Hydrocodone Dosing Bitartrate 2 Weight MG/ML Extended 127.1, kg, Release Q12H, PRN as Suspension needed for [Tussionex cough, Start [facility]] date: 03/02/14 10:08:00, Duration: 30 day, Stop date: 04/01/14 10:07:00 Albuterol 0.833 Notes: (Same No Longer H MG/ML / as: Duoneb) Active 2013 [facility] Ipratropium [place] 0.167 MG/ML Inhalant Solution [DuoNeb] Lasix Notes: (Same Inactive as: Lasix) 2013 [facility] Norvasc Notes: (Same No Longer as: Norvasc) Active 2013 [facility] cefpodoxime 200 200 mg = 1 Active MG Oral Tablet tab, PO, 2013 [facility] t [Vantin] Q12H, # 14 tab, 0 Refill(s) Robitussin-AC 5 mL, PO, Active oral syrup Q4H, Cough, 2013 [facility] # 120 mL, 0 Refill(s) Amlodipine 10 MG 10 mg, PO, Active Oral Tablet Daily, # 30 2013 [facility] t [Norvasc] tab, 0 Refill(s) Lasix Notes: (Same Inactive as: Lasix) 2013 [facility] Procrit Notes: (Same No Longer as: Procrit) Active 2013 [facility] epoetin dottie 10,000 unit/1 ml VL Flumazenil Notes: (Same No Longer as: Active 2013 [facility] Romazicon) Naloxone Notes: (Same No Longer as: Narcan) Active 2013 [facility] 05/11 NS 500 mL 500 mL, Inactive Rate: 75 2013 [facility] ml/hr, Infuse over: 6.7 hr, Route: IV, Dosing Weight 127.1 kg, Total Volume: 500, Start date: 02/28/14 9:08:00, Duration: 6 hr, Stop date: 02/28/14 15:07:00 Magnesium Notes: (Same Inactive Sulfate as: MgSO4) 2013 [facility] Hydralazine Notes: (Same No Longer Hydrochloride 50 as: Active 2013 [facility] [address] MG Oral Tablet Apresoline) May interfere w/enteral feedings Take With Food Jessica Brooks Notes: (Same No Longer H As: Tessalon Active 2013 [facility] Perles) "Do Not Crush" Budesonide 0.25 Notes: (Same No Longer H MG/ML Inhalant As: Active 2013 [facility] Solution Pulmicort) [Pulmicort] Protonix Notes: No Longer Tablet Active 2013 [facility] should not be chewed or crushed. (Same as: Protonix) Allopurinol Notes: (Same No Longer as: Active 2013 [facility] Zyloprim) Magnesium 2 gm, 50 mL, Inactive Sulfate Route: IVPB, 2013 [facility] Drug form: INJ, ONCE, Dosing Weight 127.1, kg, Total dose = 2 gm, Start date: 02/27/14 7:19:00, Duration: 1 doses or times, Stop date: 02/27/14 7:19:00 Hydralazine Notes: (Same Inactive Hydrochloride 50 as: [address] [facility] [address] MG Oral Tablet Apresoline) May interfere w/enteral feedings Take With Food atorvastatin 40 mg, Inactive Route: PO, 2013 [facility] Drug form: TAB, Bedtime, Dosing Weight 126.3, kg, Start date: 02/26/14 21:00:00, Duration: 30 day, Stop date: 03/27/14 21:00:00 isosorbide Notes: (Same No Longer dinitrate as:Isordil) Active 2013 [facility] extended release Take on empty stomach/ full glass of water. Do not crush. Albuterol 0.833 Notes: (Same No Longer H MG/ML / as: Duoneb) 2013 [facility] Ipratropium [place] 0.167 MG/ML Inhalant Solution [DuoNeb] Coreg Notes: Give No Longer with food. Active 2013 [facility] (Same As: Coreg) Acetylcysteine 600 mg, 3 No Longer 200 MG/ML mL, Route: Active 2013 [facility] Inhalant NEB, Drug Solution Form: SOLN, Dosing Weight 126.3, kg, RQID, Start date: 02/26/14 19:00:00, Duration: 30 day, Stop date: 03/28/14 15:00:00 Azithromycin Notes: (Same No Longer As: Active 2013 [facility] Zithromax IV) Ceftriaxone Notes: (Same No Longer As: Active 2013 [facility] Rocephin). Use with 100ml NS mini-bag PLUS and infuse over 30 min Robitussin-AC Notes: (Same No Longer oral syrup As: Active 2013 [facility] Robitussin AC) Albuterol 0.833 Notes: (Same No Longer H MG/ML / as: Duoneb) Active 2013 [facility] Ipratropium [place] 0.167 MG/ML Inhalant Solution [DuoNeb] Acetylcysteine 600 mg, 3 No Longer 200 MG/ML mL, Route: Active 2013 [facility] Inhalant PO, Drug Solution form: SOLN, BID, Dosing Weight 126.3, kg, Priority: NOW, Start date: 02/26/14 17:10:00, Duration: 1 day, Stop date: 02/27/14 17:00:00 Amiodarone 200 mg, Inactive Route: PO, 2013 [facility] Drug form: TAB, BID, Dosing Weight 126.3, kg, Start date: 02/26/14 17:00:00, Duration: 30 day, Stop date: 03/28/14 9:00:00 carvedilol 12.5 mg, Inactive Route: PO, 2013 [facility] Drug form: TAB, BID, Dosing Weight 126.3, kg, Start date: 02/26/14 17:00:00, Duration: 30 day, Stop date: 03/28/14 9:00:00 gabapentin 400 Notes: (Same No Longer MG Oral [facility]: [facility]) tramadol Notes: Not No Longer hydrochloride 50 to exceed Active 2013 [facility] [place] MG Oral Tablet 400mg/day. (Same As: Ultram) Alprazolam Notes: With No Longer food or milk Active 2013 [facility] (Same as: Xanax) 200 ACTUAT Notes: Same No Longer Albuterol 0.09 as: Active 2013 [facility] MG/ACTUAT / Combivent Ipratropium Respimat [place] 0.018 MG/ACTUAT Metered Dose Inhaler [Combivent] Cordarone Notes: (Same No Longer as: Active 2013 [facility] Cordarone) Coreg Notes: Give Inactive with food. 2013 [facility] (Same As: Coreg) atorvastatin 40 40 mg = 1 Active [facility] mg oral tablet tab, PO, 2013s t Bedtime, 0 Refill(s) carvedilol 12.5 12.5 mg = 1 Active 02/26/ [facility] mg oral tablet tab, PO, 2013s t BID, 0 Refill(s) allopurinol 100 100 mg = 1 Active 02/26/ [facility] mg oral tablet tab, PO, 2013s t Daily, 0 Refill(s) AMIODarone 200 200 mg = 1 Active [facility] mg oral tablet tab, PO, 2013s BID, 0 Refill(s) Sodium Chloride 250 mL, No Longer 0.9% IV Route: IVPB, Active 2013 [facility] Start date: 02/26/14 2:42:00, Duration: 30 day, Stop date: 03/28/14 1:41:00, PRN Line Flush BD Normal Saline Notes: (Same No Longer Flush as: BD Active 2013 [facility] Posiflush) aspirin Notes: Take No Longer with food. Active 2013 [facility] Ondansetron Notes: (Same No Longer as: Zofran) Active 2013 [facility] Morphine Notes: (Same No Longer as:MORPhine Active 2013 [facility] Sulfate) aspirin Notes: Take Inactive with food. 2013 [facility] Morphine Notes: (Same No Longer as:MORPhine Active 2013 [facility] Sulfate) atorvastatin 20 40 mg = 2 Active [facility] mg oral tablet tab, PO, 2013s Bedtime, # 60 tab, 0 Refill(s) AMIODarone 200 200 mg = 1 Active [facility] mg oral tablet tab, PO, 2013s t BID, # 60 tab, 0 Refill(s) dabigatran 150 mg = 1 Active etexilate 150 MG cap, PO, 2013 [facility] est Oral Capsule BID, # 60 [Pradaxa] cap, 0 Refill(s) carvedilol 12.5 12.5 mg = 1 Active mg oral tablet tab, PO, 2013 [facility] t BID, # 60 tab, 0 Refill(s) Docusate Sodium Notes: (Same No Longer H 100 MG Oral as: Colace) Active 2013 [facility] t Capsule [Colace] (Do Not Crush) Coreg Notes: Give No Longer with food. Active 2013 [facility] (Same As: Coreg) Cordarone Notes: (Same No Longer as: Active 2013 [facility] Cordarone) Magnesium 2 gm, 50 mL, Inactive Sulfate Route: IV2013 [facility] Drug form: INJ, ONCE, Dosing Weight 119.801, kg, Start date: 01/27/14 8:07:00, Duration: 2 hr, Stop date: 01/27/14 8:07:00 Lipitor Notes: (Same No Longer As: Lipitor) Active 2013 [facility] Magnesium 2 gm, 50 mL, Inactive Sulfate Route: IV2013 [facility] Drug form: INJ, ONCE, Dosing Weight 119.801, kg, Total dose = 2 gm, Start date: 01/26/14 19:17:00, Duration: 1 doses or times, Stop date: 01/26/14 19:17:00 AMIODarone 900 2 mg/ml. No Longer mg in D5W 500 ml Use Glass Active 2013 [facility] IV 900 mg + Bottle or Dextrose 5% in Non PVC Bag Water IV 482 mL "Use 0.22 micron in-line filter" Amiodarone 2 mg/ml. Inactive "Recommendat 2013 [facility] ion: Use an in-line filter during administrati on for continuous infusions to reduce the incidence of phlebitis" (Same as: Cordarone) Pradaxa Notes: DO No Longer NOT break, Active 2013 [facility] chew or open capsules for administrati on. Aspirin 81 MG Notes: Do No Longer Enteric Coated not crush or Active 2013 [facility] Tablet chew. (Same As: Ecotrin) gabapentin 400 Notes: (Same No Longer MG Oral Capsule as: Active 2013 [facility] t [Neurontin] Neurontin) Digoxin Notes: Take Inactive on an Empty 2013 [facility] Stomach (Same as: Lanoxin) Coreg Notes: Give No Longer with food. Active 2013 [facility] (Same As: Coreg) Nitroglycerin Notes: 1 No Longer 0.02 MG/MG gram is Active 2013 [facility] Topical Ointment approximatel y 1 inch of nitroglyceri n ointment (20 mg NTG per gram) (Same as:Nitro-Bid ) Protonix Notes: No Longer Tablet Active 2013 [facility] should not be chewed or crushed. (Same as: Protonix) tramadol Notes: Not No Longer hydrochloride 50 to exceed Active 2013 [facility] MG Oral Tablet 400mg/day. (Same As: Ultram) Alprazolam Notes: With No Longer food or milk Active 2013 [facility] (Same as: Xanax) Morphine Notes: (Same No Longer as: MORPhine Active 2013 [facility] Sulfate) Acetaminophen Notes: (Same No Longer 325 MG / as: [place] Active 2013 [facility] Hydrocodone 325/5) Do Bitartrate 5 MG not exceed Oral Tablet 4gm/day of [[place] 5/325] acetaminophe n. Lasix Notes: (Same Inactive as: Lasix) 2013 [facility] Zofran Notes: (Same No Longer as: Zofran) Active 2013 [facility] Tylenol Notes: Do No Longer not exceed 4 Active 2013 [facility] gm/day. (Same as: Tylenol) Hydralazine Notes: (Same No Longer as: Active 2013 [facility] Apresoline) Push over 5 minutes Sodium Chloride 250 mL, No Longer 0.9% IV Route: IVPB, Active 2013 [facility] Start date: 01/26/14 6:20:00, Duration: 30 day, Stop date: 02/25/14 6:19:00, PRN Line Flush BD Normal Saline Notes: (Same No Longer Flush as: BD Active 2013 [facility] Posiflush) digoxin Notes: (Same Inactive as: Lanoxin) 2013 [facility] dabigatran PO, BID, 0 No Longer etexilate 150 MG Refill(s) Active 2013 [facility] Oral Capsule [Pradaxa] Protonix 40 mg, PO, Active Daily, # 30 2013 [facility] tab, 0 Refill(s) gabapentin 400 PO, BID, 0 Active MG Oral Capsule Refill(s) 2013 [facility] est [Neurontin] tramadol PO, Q12H, Active hydrochloride 50 Pain, 0 [address] [facility] [address] MG Oral Tablet Refill(s) 200 ACTUAT INHALER, Active Albuterol 0.09 SOB, 0 2013 [facility] MG/ACTUAT / Refill(s) Ipratropium [place] 0.018 MG/ACTUAT Metered Dose Inhaler [Combivent] Digoxin 125 No Longer microgram, Active 2013 [facility] PO, Daily, 0 Refill(s) carvedilol 25 MG 25 mg = 1 No Longer Oral Tablet tab, PO, Active 2013 [facility] [Coreg] BID, # 180 tab, 0 Refill(s) [place] 10/325 PO, PRN, PO Active [place] oral tablet Substitution 2012 [place] Allowed, Maintenance Protonix 40 mg PO, Daily, PO Active Sug ar oral enteric Substitution 2012 [facility] coated tablet Allowed enalapril 5 mg PO, BID, PO Active [place] oral tablet Substitution 2012 [place] Coumadin 4 mg PO, Daily, PO Active S[place] r oral tablet Substitution 2012 [place] Omnipaque 300 100 mL, 400 IV Active Melo OPI D ml/hr, 2012 [place] Route: IV, Drug Form: SOLN, ONCE, Start date: 07/11/12 12:00:00, Stop date: 07/11/12 12:00:00 Omnipaque 300 100 mL, 400 IV Active Melo OPI D ml/hr, 2012 [place] Route: IV, Drug Form: SOLN, ONCE, Start date: 07/11/12 11:40:00, Stop date: 07/11/12 11:40:00 Neurontin 600 mg, 2 PO No Longer [place] 10/20/ MH cap, Route: Active 2011 [facility] PO, Drug form: CAP, TID, Start date: 02/27/12 9:00:00, Duration: 30 day, Stop date: 03/27/12 17:00:00 Demadex 10 mg, 1 PO No Longer [place] 10/20/ MH tab, Route: Active 2011 [facility] PO, Drug form: TAB, Daily, Start date: 02/27/12 9:00:00, Duration: 30 day, Stop date: 03/27/12 9:00:00 Xanax 0.5 mg, 0.5 PO No Longer [place] 10/20/ MH tab, Route: Active 2011 [facility] PO, Drug form: TAB, Daily, Start date: 02/26/12 19:50:00, Duration: 30 day, Stop date: 03/27/12 9:00:00 Betapace 80 mg, 1 PO No Longer [place] 10/20/ MH tab, Route: Active 2011 [facility] PO, Drug form: TAB, BID, Start date: 02/26/12 19:49:00, Duration: 30 day, Stop date: 03/27/12 17:00:00 Phenergan 25 mg, 1 PO No Longer [place] 10/20/ MH tab, Route: Active 2011 [facility] PO, Drug form: TAB, Q6H, PRN Nausea & Vomiting, Start date: 02/26/12 19:46:00, Duration: 30 day, Stop date: 03/27/12 19:45:00 Protonix 40 mg, 1 PO No Longer [place] 10/20/ MH tab, Route: Active 2011 [facility] PO, Drug form: ECTAB, Before Dinner, Start date: 02/26/12 19:46:00, Duration: 30 day, Stop date: 03/27/12 16:30:00 acetaminophen-hy 1 tab, PO No Longer [place] 10/20/ MH drocodone 325 Route: PO, Active 2011 [facility] [address] mg-10 mg oral Drug Form: tablet TAB, Q6H, PRN Pain Score 4-6, Start date: 02/26/12 19:45:00, Duration: 30 day, Stop date: 03/27/12 19:44:00 Zaroxolyn 5 mg, 2 tab, PO No Longer [place] 10/20/ MH Route: PO, Active 2011 [facility] Drug form: TAB, Daily, Start date: 02/26/12 19:44:00, Duration: 30 day, Stop date: 03/27/12 9:00:00 Lipitor 10 mg, 1 PO No Longer [place] tab, Route: Active 2011 [facility] PO, Drug form: TAB, Daily, Start date: 02/26/12 19:43:00, Duration: 30 day, Stop date: 03/27/12 9:00:00 Prinivil 2.5 mg, 0.5 PO No Longer [place] tab, Route: Active 2011 [facility] PO, Drug form: TAB, Daily, Start date: 02/26/12 9:00:00, Duration: 30 day, Stop date: 03/26/12 9:00:00 Lopressor 25 mg, 1 PO No Longer [place] tab, Route: Active 2011 [facility] PO, Drug form: TAB, Q12H, Start date: 02/26/12 9:00:00, Duration: 30 day, Stop date: 03/26/12 21:00:00 aspirin 325 mg 325 mg, 1 PO No Longer [place] tablet tab, Route: Active 2011 [facility] PO, Drug form: TAB, Daily, Start date: 02/26/12 9:00:00, Duration: 30 day, Stop date: 03/26/12 9:00:00 Lovenox 120 mg, 0.8 SUB-Q No Longer [place] mL, Route: Active 2011 [facility] SUB-Q, Drug form: INJ, [id number], Start date: 02/26/12 1:00:00, Duration: 30 day, Stop date: 03/26/12 13:00:00 morphine Sulfate 4 mg, 0.5 IV No Longer [place] mL, Route: Active 2011 [facility] IV, Drug form: INJ, Q4H, PRN Pain, Start date: 02/26/12 0:46:00, Duration: 30 day, Stop date: 03/27/12 0:45:00 nitroglycerin 0.4 mg, 1 SL No Longer Catalan MH 0.4 mg tab, Route: Active 2011 [facility] sublingual SL, Drug tablet form: TAB, Q5Min, PRN Chest Pain, Start date: 02/26/12 0:46:00, Duration: 30 day, Stop date: 03/26/12 23:45:00 Sodium Chloride 250 mL, IVPB No Longer [place] 0.9% IV Route: IVPB, Active 2011 [facility] Start date: 02/26/12 0:45:00, Duration: 30 day, Stop date: 03/26/12 23:44:00, PRN Line Flush BD Normal Saline 10 mL, IVP No Longer [place] Flush Route: IVP, Active 2011 [facility] Drug Form: INJ, PRN, PRN Line Flush, Start date: 02/26/12 0:45:00, Duration: 30 day, Stop date: 03/26/12 23:44:00 [place] 10/325 1 tab, PO, PO Active Judith-P Dariel as oral tablet Q6H, PRN, 40 [facility] 2011 Medical tab, for Center pain, Substitution Allowed, Soft Stop, TAB Medrol Dosepak 4 As directed PO Active Judith-P H [place] mg Tablet on package [facility] 2011 Medical instructions Center , PO, Daily, 1 Pack, Substitution Allowed, Take with or without foodTake with or without food [place] 5/325 oral 1 tab, PO No Longer Judith-P [place] tablet Route: PO, Active alba2011 Medical Drug Form: Center TAB, Q4H, PRN Pain Score 4-6, Start date: 12/07/11 16:00:00, Duration: 30 day, Stop date: 01/06/12 15:59:00 magnesium 150 ml, PO No Longer Francisco Javier [place] citrate Route: PO, Active 2011 Medical Drug Form: Center LIQ, ONCE, Start date: 12/06/11 10:06:00, Stop date: 12/06/11 10:06:00 heparin 5000 7,500 unit, SUB-Q No Longer Francisco Javier [place] units/mL 1.5 mL, Active 2011 Medical injectable Route: Center solution SUB-Q, Drug form: INJ, Q8H, Start date: 12/05/11 16:00:00, Duration: 30 day, Stop date: 01/04/12 8:00:00 senna 8.6 mg, 1 PO No Longer Pankaj Seven tab, Route: Active 2011 Medical PO, Drug Center Form: TAB, BID, Start date: 12/05/11 9:00:00, Duration: 30 day, Stop date: 01/03/12 17:00:00 Colace 100 mg 100 mg, 1 PO No Longer Pankaj Dariel as oral capsule cap, Route: Active 2011 Medical PO, Drug Center form: CAP, BID, Start date: 12/05/11 9:00:00, Duration: 30 day, Stop date: 01/03/12 17:00:00 NS 1,000 mL 1,000 mL, IV No Longer Francisco Javier [facility] Rate: 75 Active 2011 Medical ml/hr, [place] Infuse over: 13.3 hr, Route: IV, Dosing Weight 119.091 kg, Total Volume: 1,000, Start date: 12/05/11 8:34:00, Duration: 30 day, Stop date: 01/04/12 8:33:00 cefazolin + 2 gm, Route: IVPB [facility] [place] Sodium Chloride [facility]PB, Drug Active 2011 Medic al 0.9% IV 100 mL form: [place] PDR/INJ, [id number], Start date: 12/05/11 6:00:00, Duration: 4 doses or times, Stop date: 12/06/11 6:00:00 dexamethasone 4 mg, 1 mL, IV [facility] [place] Route: IV, Active 2011 Medical Drug form: [place] INJ, Q6H, Start date: 12/05/11 6:00:00, Duration: 12 doses or times, Stop date: 12/08/11 0:00:00 magnesium 2 gm, 50 mL, IVPB No Longer [facility] [place] sulfate Route: IVPB, Active 2011 Medical Drug form: [place] INJ, ONCE, Start date: 12/05/11 5:00:00, Stop date: 12/05/11 5:00:00 Dilaudid 0.5 mg, 0.25 IV No Longer Judith-P Dariel [place] mL, Route: Active alba 2011 Medical IV, Drug Center form: INJ, Q3H, PRN Pain Score 4-6, Start date: 12/05/11 2:05:00, Duration: 30 day, Stop date: 01/04/12 2:04:00 ondansetron 4 mg, 2 mL, IVP No Longer Francisco Javier 12/04[facility] Dariel as Route: IVP, Active 2011 Medical Drug form: Center INJ, ONCE, PRN Nausea & Vomiting, Start date: 12/04/11 23:51:00 hydromorphone 0.5 mg, 0.25 IVP No Longer [place] 12/04[facility] [place] mL, Route: Active 2011 Medical IVP, Drug Center form: INJ, Q5Min, PRN Pain Score 4-6, Start date: 12/04/11 23:51:00, Duration: 5 doses or times, Stop date: Limited # of times naloxone 0.04 mg, 0.1 IVP No Longer [place] 12/04[facility] mL, Route: Active 2011 Medical IVP, Drug Center form: INJ, Q2MIN, PRN Narcotic Reversal, Start date: 12/04/11 23:51:00, Duration: 8 doses or times, Stop date: Limited # of times flumazenil 0.2 mg, 2 IVP No Longer [place] 12/04[facility] mL, Route: Active 2011 Medical IVP, Drug Center form: INJ, PRN, PRN Benzodiazepi ne Reversal, Initial dose, Start date: 12/04/11 23:51:00, Duration: 30 day, Stop date: 01/03/12 23:50:00 niCARdipine 0.25 mg, 0.1 IVP No Longer Lexie 12/04[facility] [place] mL, Route: Active 2011 Medical IVP, Drug Center form: INJ, Q5Min, PRN Elevated BP, Start date: 12/04/11 23:51:00, Duration: 4 doses or times, Stop date: 12/05/11 4:00:00 NS + KCL 20mEq/L 1,000 mL, IV No Longer Francisco Javier 12/03[facility] [place] 1000ml (Premix) Rate: 100 Active 2011 Medica l 1,000 mL ml/hr, Center Infuse over: 10 hr, Route: IV, Dosing Weight 119.091 kg, Total Volume: 1,000, Start date: 12/03/11 23:15:00, Duration: 30 day, Stop date: 01/02/12 23:14:00 Humulin N 10 unit, 0.1 SUB-Q No Longer [place] 12/02/ [place] mL, Route: Active 2011 Medical SUB-Q, Drug Center form: INJ, ONCE, Start date: 12/03/11 17:30:00, Stop date: 12/03/11 17:30:00 Humulin R 100 7 unit, 0.07 SUB-Q No Longer Lovy 12/02/ MH [place] units/mL mL, Route: Active 2011 Medical injectable SUB-Q, Drug Center solution form: SOLN, Sliding Scale, PRN Blood Glucose Results, Start date: 12/03/11 17:20:00, Duration: 30 day, Stop date: 01/02/12 17:19:00 Humulin R 100 5 unit, 0.05 SUB-Q No Longer Lovy 12/02/ MH [place] units/mL mL, Route: Active 2011 Medical injectable SUB-Q, Drug Center solution form: SOLN, Sliding Scale, PRN Blood Glucose Results, Start date: 12/03/11 17:19:00, Duration: 30 day, Stop date: 01/02/12 17:18:00 Humulin R 100 4 unit, 0.04 SUB-Q No Longer Lovy 12/02/ MH [place] units/mL mL, Route: Active 2011 Medical injectable SUB-Q, Drug Center solution form: SOLN, Sliding Scale, PRN Blood Glucose Results, Start date: 12/03/11 17:17:00, Duration: 30 day, Stop date: 01/02/12 17:16:00 Humulin R 100 2 unit, 0.02 SUB-Q No Longer [place]y 12/02/ MH [place] units/mL mL, Route: Active 2011 Medical injectable SUB-Q, Drug Center solution form: SOLN, Sliding Scale, PRN Blood Glucose Results, Start date: 12/03/11 17:16:00, Duration: 30 day, Stop date: 01/02/12 17:15:00 Humulin R 100 1 unit, 0.01 SUB-Q No Longer Lovy // MH [place] units/mL mL, Route: Active 2011 Medical injectable SUB-Q, Drug Center solution form: SOLN, Sliding Scale, PRN Blood Glucose Results, Start date: 12/03/11 17:15:00, Duration: 30 day, Stop date: 01/02/12 17:14:00 Dextrose 50% in 50 mL, IV No Longer Lovy Dariel as [place] IV Route: IV, Active 2011 Medical Start date: [place] 12/03/11 17:14:00, Duration: 30 day, Stop date: 01/02/12 17:13:00, PRN Blood Glucose Results Dextrose 50% in 25 mL, IV No Longer Lovy Dariel as [place] IV Route: IV, Active 2011 Medical Start date: [place] 12/03/11 17:00:00, Duration: 30 day, Stop date: 01/02/12 16:59:00, PRN Blood Glucose Results insulin 10 unit, 0.1 SUB-Q No Longer Lovy Seven isophane-NPH mL, Route: Active 2011 Medical SUB-Q, Drug Center form: INJ, ONCE, Start date: 12/03/11 12:38:00, Stop date: 12/03/11 12:38:00 methylPREDNISolo 60 mg, 1.5 IV No Longer Lovy [place] mL, Route: Active 2011 Medical IV, Drug Center form: INJ, Daily, Start date: 12/02/11 19:30:00, Duration: 2 doses or times, Stop date: 12/03/11 9:00:00 torsemide 10 mg, 1 PO No Longer Lovy [place] tab, Route: Active 2011 Medical PO, Drug Center form: TAB, Daily, Start date: 12/02/11 9:00:00, Duration: 30 day, Stop date: 12/31/11 9:00:00 sotalol AF 80 mg 80 mg, 1 PO No Longer [place] oral tablet tab, Route: Active 2011 Medical PO, Drug Center form: TAB, BID, Start date: 12/02/11 9:00:00, Duration: 30 day, Stop date: 12/31/11 17:00:00 pantoprazole 40 mg, 1 PO No Longer Lovy Seven tab, Route: Active 2011 Medical PO, Drug Center form: ECTAB, Daily, Start date: 12/02/11 9:00:00, Duration: 30 day, Stop date: 12/31/11 9:00:00 Combivent 2 INHALER No Longer Lovy [facility] inhalation inhalation, Active 2011 Medical aerosol with Route: Center adapter INHALER, Drug Form: AERO/A, Daily, Start date: 12/02/11 9:00:00, Duration: 30 day, Stop date: 12/31/11 9:00:00 lisinopril 10 mg, 1 PO No Longer Lovy [facility] tab, Route: Active 2011 Medical PO, Drug Center form: TAB, BID, Start date: 12/01/11 21:00:00, Duration: 30 day, Stop date: 12/31/11 17:00:00 gabapentin 600 600 mg, 2 PO No Longer [place] oral tablet cap, Route: Active 2011 Medic al PO, Drug Center form: CAP, TID, Start date: 12/01/11 21:00:00, Duration: 30 day, Stop date: 12/31/11 14:00:00 atorvastatin 10 mg, 1 PO No Longer Lovy [facility] tab, Route: Active 2011 Medical PO, Drug Center form: TAB, QPM, Start date: 12/01/11 21:00:00, Duration: 30 day, Stop date: 12/31/11 17:00:00 promethazine 25 mg, 1 PO No Longer Lovy 12/01[facility] tab, Route: Active 2011 Medical PO, Drug Center form: TAB, Q12H, PRN as needed for nausea/vomit ing, Start date: 12/01/11 19:21:00, Duration: 30 day, Stop date: 12/31/11 19:20:00 ALPRAZOLam 0.5 mg, 1 PO No Longer [place]y 12/01[facility] tab, Route: Active 2011 Medical PO, Drug Center form: TAB, Daily, PRN as needed for anxiety, Start date: 12/01/11 19:21:00, Duration: 30 day, Stop date: 12/31/11 19:20:00 [place] 10/325 1 tab, PO No Longer [place] oral tablet Route: PO, Active alba 2011 Medical Drug Form: Center TAB, Q6H, PRN as needed for pain, Start date: 12/01/11 19:20:00, Duration: 30 day, Stop date: 12/31/11 19:19:00 temazepam 15 mg, 1 PO No Longer Lovy 12/01/ [place] cap, Route: Active 2011 Medical PO, Drug Center form: CAP, Bedtime, PRN Insomnia, Start date: 12/01/11 19:15:00, Duration: 30 day, Stop date: 12/31/11 19:14:00 atorvastatin 10 10 mg, 1 PO [facility] [place] [facility] tab, PO, 2011 Medical Daily, 30 Center tab, Substitution Allowed, TAB [place] 10/325 1 tab, PO, PO No Longer [place] oral tablet Q6H, PRN, 24 Active alba 2011 Medical tab, for Center pain, Substitution Allowed, Soft Stop pantoprazole 40 40 mg, 1 PO No Longer [facility] [place] mg oral enteric tab, PO, Active 2011 Medical coated tablet Daily, 30 Center tab, Substitution Allowed, ECTAB gabapentin 600 600 mg, 1 PO Active [facility] [place] mg oral tablet tab, PO, 2011 Medical TID, 270 Center tab, Substitution Allowed Protonix 40 mg 40 mg, 1 PO Active [facility] [place] oral enteric tab, PO, 2011 [place] coated tablet Daily, 30 tab, 1, 1, Substitution Allowed, ECTAB Coreg 3.125 mg 3.125 mg, 1 PO Active [facility] [place] oral tablet tab, PO, 2011 [place] BID, 60 tab, 1, 1, Substitution Allowed, TAB [place] 5/325 oral 1 tab, PO, PO Active [facility] S ugar tablet Q4-6H, PRN, 2011 [place] 30 tab, as needed for pain, Substitution Allowed, Maintenance Flagyl 500 mg 500 mg, 1 PO Active [facility] [place] oral tablet tab, PO, 2011 [place] Q8H, 39 tab, Substitution Allowed, TAB Cipro 500 mg 500 mg, 1 PO Active [facility] [place] oral tablet tab, PO, 2011 [place] Q12H, 26 tab, Substitution Allowed, TAB Cipro 400 mg, 200 IVPB No Longer [facility] [place] mL, Route: Active 2011 IVPB, Drug form: INJ, Q12H, Start date: 08/27/11 21:00:00, Duration: 30 day, Stop date: 09/26/11 9:00:00 Flagyl 500 mg, 100 IVPB No Longer [place] mL, Route: Active 2011 IVPB, Drug form: INJ, Q8H, Start date: 08/27/11 16:00:00, Duration: 30 day, Stop date: 09/26/11 8:00:00 Lyrica 75 mg, 1 PO No Longer O[place] cap, Route: Active 2011 PO, Drug form: CAP, Daily, Start date: 08/27/11 9:00:00, Duration: 30 day, Stop date: 09/25/11 9:00:00 lisinopril 10 mg, 2 PO No Longer [place] tab, Route: Active 2011 PO, Drug form: TAB, BID, Start date: 08/27/11 9:00:00, Duration: 30 day, Stop date: 09/25/11 17:00:00 gabapentin 600 600 mg, 2 PO No Longer Odom [place] mg oral tablet cap, Route: Active 2011 PO, Drug form: CAP, TID, Start date: 08/27/11 9:00:00, Duration: 30 day, Stop date: 09/25/11 17:00:00 Coreg 3.125 mg, 1 PO No Longer Odom [place] tab, Route: Active 2011 PO, Drug form: TAB, BID, Start date: 08/27/11 9:00:00, Stop date: 09/25/11 17:00:00 Protonix 40 mg, 1 PO No Longer Melo [place] tab, Route: Active 2011 PO, Drug form: ECTAB, Daily, Start date: 08/27/11 9:00:00, Duration: 30 day, Stop date: 09/25/11 9:00:00 Visipaque 32,000 mg, IVP Active [place] 100 mL, 2011 Route: IVP, Drug form: INJ, ONCE, Start date: 08/27/11 8:33:00, Stop date: 08/27/11 8:33:00 sotalol 80 mg, 1 PO No Longer Odom [place] tab, Route: Active 2011 PO, Drug form: TAB, BID, Start date: 08/26/11 21:40:00, Duration: 30 day, Stop date: 09/25/11 17:00:00 ipratropium 0.5 mg, 2.5 NEB No Longer Melo [place] 0.02% inhalation mL, Route: Active 2011 [facility] solution NEB, Drug form: SOLN, Q4H, Start date: 08/26/11 20:00:00, Duration: 30 day, Stop date: 09/25/11 16:00:00 albuterol 0.083% 2.49 mg, 3 NEB No Longer Melo [place] inhalation mL, Route: Active 2011 [facility] solution NEB, Drug form: SOLN, Q4H, Start date: 08/26/11 20:00:00, Duration: 30 day, Stop date: 09/25/11 16:00:00 Restoril 15 mg, 1 PO No Longer [facility] [place] cap, Route: Active 2011 PO, Drug form: CAP, Bedtime, PRN Sleep, Start date: 08/26/11 19:55:00, Duration: 30 day, Stop date: 09/25/11 19:54:00 [place] 5/325 oral 1 tab, PO No Longer [facility] [place] tablet Route: PO, Active 2011 Drug Form: TAB, Q4H, PRN Pain, Start date: 08/26/11 19:55:00, Duration: 30 day, Stop date: 09/25/11 19:54:00 insulin aspart 4 unit, 0.04 SUB-Q No Longer Odom [place] mL, Route: Active 2011 SUB-Q, Drug form: SOLN, Bedtime, PRN Blood Glucose Results, Start date: 08/26/11 19:38:00, Duration: 30 day, Stop date: 09/25/11 19:37:00 Dextrose 50% 12.5 gm, 25 IVP No Longer [facility] [place] gar Syringe mL, Route: Active 2011 IVP, Drug Form: INJ, PRN, PRN Blood Glucose Results, Start date: 08/26/11 19:38:00, Duration: 30 day, Stop date: 09/25/11 19:37:00 glucagon 1 mg, Route: IM No Longer [facility] [place] IM, Drug Active 2011 [facility] form: PDR/INJ, PRN, PRN Blood Glucose Results, Start date: 08/26/11 19:38:00, Duration: 30 day, Stop date: 09/25/11 19:37:00 ALPRAZOLam 0.5 mg, 1 PO No Longer [facility] [place] tab, Route: Active 2011 PO, Drug form: TAB, Daily, PRN as needed for anxiety, Start date: 08/26/11 19:36:00, Duration: 30 day, Stop date: 09/25/11 19:35:00 levofloxacin 750 mg, 150 IV No Longer [facility] [place] mL, Route: Active 2011 IV, Drug form: SOLN, Q24H, Start date: 08/26/11 18:00:00, Duration: 30 day, Stop date: 09/24/11 18:00:00 cefepime 1 gm, Route: IV No Longer [facility] [place] IV, Daily, Active 2011 Start date: 08/26/11 18:00:00, Duration: 30 day, Stop date: 09/24/11 18:00:00 BD Posiflush SF 15 mL, IVP No Longer Melo Sug ar Route: IVP, Active 2011 Drug Form: INJ, PRN, PRN Line Flush, Start date: 08/26/11 17:34:00, Duration: 30 day, Stop date: 09/25/11 17:33:00 Jantoven 4 mg 4 mg, 1 tab, PO No Longer [place] oral tablet PO, QPM, 30 Active 2011 tab, Substitution Allowed, TAB Lyrica 75 mg 75 mg, 1 PO Active [facility] [place] oral capsule cap, PO, 2011 Daily, 90 cap, Substitution Allowed, CAP sotalol 80 mg 80 mg, 1 PO Active [facility] [place] oral tablet tab, PO, 2011 BID, 180 tab, Substitution Allowed, TAB omeprazole 20 mg 20 mg, 1 PO Active [place] oral delayed cap, PO, 2012 [place] release capsule Daily, 30 cap, Substitution Allowed metFORmin 500 mg 500 mg, 1 PO Active [place] [facility] oral tablet tab, PO, 2011 Daily, 30 tab, Substitution Allowed torsemide 10 mg 10 mg, 1 PO Active [place] oral tablet tab, PO, 2011 Daily, 30 tab, Substitution Allowed, TAB Combivent 2 puff, INHALER Active [place] inhalation INHALER, 2011 aerosol with Daily, 14 adapter gm, Substitution Allowed, Maintenance morphine Sulfate 1 mg, 0.5 IV No Longer Melo [place] mL, Route: Active 2011 [facility] IV, Drug form: INJ, Q4H, PRN as needed for pain, Start date: 08/26/11 17:07:00, Duration: 30 day, Stop date: 09/25/11 17:06:00 Tylenol 650 mg, 2 PO No Longer Melo [place] tab, Route: Active 2011 [facility] PO, Drug form: TAB, Q4H, PRN Pain, Start date: 08/26/11 17:03:00, Duration: 30 day, Stop date: 09/25/11 17:02:00 Sodium Chloride 1,000 mL, IV No Longer Melo S [place] 0.9% IV 1,000 mL Rate: 70 Active 2011 [facility] ml/hr, Infuse over: 14.3 hr, Route: IV, Dosing Weight 129.091 kg, Total Volume: 1,000, Start date: 08/26/11 16:59:00, Duration: 30 day, Stop date: 09/25/11 16:58:00 Demadex 10 mg, 1 PO No Longer Gil tab, Route: Active 2011 [facility] PO, Drug form: TAB, Daily, Start date: 07/07/11 9:00:00, Duration: 30 day, Stop date: 08/05/11 9:00:00 Glucophage 500 mg, 1 PO No Longer [place] tab, Route: Active 2011 [facility] PO, Drug form: TAB, Daily, Start date: 07/07/11 9:00:00, Duration: 30 day, Stop date: 08/05/11 9:00:00 Xanax 0.5 mg, 1 PO No Longer [place] tab, Route: Active 2011 [facility] PO, Drug form: TAB, Bedtime, Start date: 07/06/11 21:00:00, Duration: 30 day, Stop date: 08/04/11 21:00:00 Lipitor 10 mg, 1 PO No Longer Gil tab, Route: Active 2011 [facility] PO, Drug form: TAB, Bedtime, Start date: 07/06/11 21:00:00, Duration: 30 day, Stop date: 08/04/11 21:00:00 niacin 500 mg 500 mg, 1 PO No Longer Gil oral tablet, tab, Route: Active [address] [facility] [address] extended release PO, Drug form: ERTAB, Bedtime, Start date: 07/06/11 21:00:00, Duration: 30 day, Stop date: 08/04/11 21:00:00 Coumadin 4.5 mg, 1.5 PO No Longer [place] tab, Route: Active 2011 [facility] PO, Drug form: TAB, Q5PM, Start date: 07/06/11 17:00:00, Duration: 30 day, Stop date: 08/04/11 17:00:00 [place] 3-6-9 1200 [place] 3-6-9 PO No Longer Gil H mg (own med) 1200 mg (own Active 2011 [facility] est med), 1,200 mg, Drug form: MISC, Route: PO, TID, 07/06/11 17:00:00, Duration: 30 day, Stop date: 08/05/11 13:00:00 Protonix 40 mg, 1 PO No Longer [place] tab, Route: Active 2011 [facility] PO, Drug form: ECTAB, Before Dinner, Start date: 07/06/11 16:30:00, Duration: 30 day, Stop date: 08/04/11 16:30:00 K-Dur 10 10 mEq, 1 PO No Longer Gil tab, Route: Active 2011 [facility] PO, Drug form: ERTAB, ONCE, Start date: 07/06/11 14:44:00, Stop date: 07/06/11 14:44:00 Neurontin 600 mg, 2 PO No Longer Gil cap, Route: Active 2011 [facility] PO, Drug form: CAP, TID, Start date: 07/06/11 13:32:00, Duration: 30 day, Stop date: 08/05/11 13:00:00 Lasix 40 mg, 1 PO No Longer Gil tab, Route: Active 2011 [facility] PO, Drug form: TAB, Daily, Start date: 07/06/11 13:31:00, Duration: 30 day, Stop date: 08/05/11 9:00:00 Phenergan 25 mg, 1 PO No Longer Gil tab, Route: Active 2011 [facility] PO, Drug form: TAB, Q12H, PRN Nausea, Start date: 07/06/11 13:30:00, Duration: 30 day, Stop date: 08/05/11 13:29:00 Betapace 80 mg, 1 PO No Longer Hoberman tab, Route: Active 2011 [facility] PO, Drug form: TAB, Q12H, Start date: 07/06/11 9:00:00, Duration: 30 day, Stop date: 08/04/11 21:00:00 DiaBeta 2.5 mg, 1 PO No Longer [place]man tab, Route: Active 2011 [facility] PO, Drug form: TAB, TID, Start date: 07/06/11 9:00:00, Duration: 30 day, Stop date: 08/04/11 17:00:00 K-Dur 10 10 mEq, 1 PO No Longer Hoberman tab, Route: Active 2011 [facility] PO, Drug form: ERTAB, Daily, Start date: 07/06/11 9:00:00, Duration: 30 day, Stop date: 08/04/11 9:00:00 Zaroxolyn 5 mg, 2 tab, PO No Longer Hoberman Route: PO, Active 2011 [facility] Drug form: TAB, Daily, Start date: 07/06/11 9:00:00, Duration: 30 day, Stop date: 08/04/11 9:00:00 Prinivil 10 mg, 1 PO No Longer Gil tab, Route: Active 2011 [facility] PO, Drug form: TAB, Daily, Start date: 07/06/11 9:00:00, Duration: 30 day, Stop date: 08/04/11 9:00:00 nitroglycerin 2% 1 inch, TOP No Longer Gil topical ointment Route: TOP, Active 2011 [facility] Drug form: OINT, TID, Start date: 07/06/11 6:00:00, Duration: 30 day, Stop date: 08/04/11 18:00:00 Astramorph PF 4 mg, 4 mL, IVP No Longer Gil Route: IVP, Active 2011 [facility] Drug form: INJ, Q2H, PRN Pain Score 7-10, Start date: 07/06/11 4:45:00, Duration: 30 day, Stop date: 08/05/11 4:44:00 acetaminophen-hy 1 tab, PO No Longer Gil drocodone 325 Route: PO, Active 2011 [facility] [address] mg-5 mg oral Drug Form: tablet TAB, Q4H, PRN Pain Score 1-5, Start date: 07/06/11 4:44:00, Duration: 30 day, Stop date: 08/05/11 4:43:00 glucagon 1 mg, Route: IV No Longer Gil IV, Drug Active 2011 [facility] form: PDR/INJ, PRN, PRN Blood Glucose Results, Start date: 07/06/11 4:41:00, Duration: 30 day, Stop date: 08/05/11 5:40:00 Dextrose 50% in 50 mL, IVP No Longer Gil Water IV Route: IVP, 2011 [facility] PRN, Blood Glucose Results, Start date: 07/06/11 4:41:00, Duration: 30 day, Stop date: 08/05/11 5:40:00 NovoLog FlexPen 10 unit, 0.1 SUB-Q No Longer Gil H mL, Route: Active 2011 [facility] SUB-Q, Drug form: SOLN, Sliding Scale, PRN Blood Glucose Results, Start date: 07/06/11 4:41:00, Duration: 30 day, Stop date: 08/05/11 5:40:00 lactulose 20 gm, 30 PO No Longer Gil mL, Route: Active 2011 [facility] PO, Drug form: SYRP, Daily, PRN Constipation , Start date: 07/06/11 4:41:00, Duration: 30 day, Stop date: 08/05/11 4:40:00 Restoril 30 mg, 1 PO No Longer Gil cap, Route: Active 2011 [facility] PO, Drug form: CAP, Bedtime, PRN Sleep, Start date: 07/06/11 4:41:00, Duration: 30 day, Stop date: 08/05/11 4:40:00 Tylenol 650 mg, 2 PO No Longer Gil tab, Route: Active 2011 [facility] PO, Drug form: TAB, Q4H, PRN Pain/Fever, Start date: 07/06/11 4:40:00, Duration: 30 day, Stop date: 08/05/11 4:39:00 Sodium Chloride 250 mL, IVPB No Longer Gil 0.9% IV Route: IVPB, Active 2011 [facility] PRN, Line Flush, Start date: 07/06/11 2:53:00, Duration: 30 day, Stop date: 08/05/11 3:52:00 BD Normal Saline 10 mL, IVP No Longer Gil Flush Route: IVP, Active 2011 [facility] Drug Form: INJ, PRN, PRN Line Flush, Start date: 07/06/11 2:53:00, Duration: 30 day, Stop date: 08/05/11 3:52:00 morphine Sulfate 4 mg, Route: IVP No Longer Hoberman IVP, ONCE, Active 2011 [facility] Priority: STAT, Start date: 07/05/11 22:23:00, Stop date: 07/05/11 22:23:00 Niaspan ER 500 500 mg, 1 PO Active mg oral tablet, tab, PO, [address] [facility] [address] extended release BID, 60 tab, Substitution Allowed warfarin 3 mg 3 mg, 1 tab, PO Active oral tablet PO, Daily, 2011 [facility] 30 tab, Substitution Allowed, TAB ALPRAZOLam 0.5 mg, PO, PO Active PRN, PRN, 2011 [facility] anxiety, Substitution Allowed promethazine 25 25 mg, 1 PO Active mg oral tablet tab, PO, 2011 [place] Q12H, PRN, 15 tab, Nausea, Substitution Allowed metolazone 5 mg 5 mg, 1 tab, PO Active oral tablet PO, Daily, 2011 [facility] 30 tab, Substitution Allowed, TAB glyBURIDE 2.5 mg 2.5 mg, 1 PO Active oral tablet tab, PO, 2011 [facility] TID, 30 tab, Substitution Allowed, TAB nitroglycerin 2% 1 inch, TOP No Longer Hoberman ointment Route: TOP, Active 2011 [facility] Drug Form: OINT, ONCE, STAT, Start date: 07/05/11 21:43:00, Stop date: 07/05/11 21:43:00 nitroglycerin 0.4 mg, 1 SL No Longer [place]man tab, Route: Active 2011 [facility], Drug form: TAB, Q5Min, PRN Chest Pain, (Hold if SBP < = 90 mmHg or if < = 100mmHg with symptomatic dizziness), Start date: 07/05/11 21:43:00, Duration: 3 doses or times, Stop date: Limited # of times aspirin 81 mg 81 mg, 1 PO No Longer Hoberman tablet, chewable tab, Route: Active 2011 [facility] PO, Drug form: CHEWTAB, ONCE, Priority: STAT, Start date: 07/05/11 21:43:00, Stop date: 07/05/11 21:43:00 Saline Flush 5 ml, Route: IVP No Longer Hoberman 0.9% IVP, Drug Active 2011 [facility] Form: INJ, PRN, PRN Line Flush, Start date: 07/05/11 21:43:00, Duration: 24 hr, Stop date: 07/06/11 21:42:00 Coumadin 10 mg, 1 PO No Longer Catr[place] tab, Route: Active 2010 [facility] PO, Drug form: TAB, ONCE, Start date: 05/05/11 17:00:00, Stop date: 05/05/11 17:00:00 Coumadin 10 mg, 1 PO No Longer [place] tab, Route: Active 2010 [facility] PO, Drug form: TAB, ONCE, Start date: 05/05/11 14:58:00, Stop date: 05/05/11 14:58:00 Coumadin 10 mg, 1 PO No Longer Odom tab, Route: Active 2010 [facility] PO, Drug form: TAB, ONCE, Start date: 05/04/11 17:00:00, Stop date: 05/04/11 17:00:00 Coreg 3.125 mg, 1 PO No Longer Melo tab, Route: Active 2010 [facility] PO, Drug form: TAB, BID, Start date: 05/04/11 17:00:00, Duration: 30 day, Stop date: 06/03/11 9:00:00 Coumadin 10 mg, 1 PO No Longer Odom tab, Route: Active 2010 [facility] PO, Drug form: TAB, ONCE, Start date: 05/03/11 17:00:00, Stop date: 05/03/11 17:00:00 Carafate 1 gm, 1 tab, PO No Longer Catrachito Route: PO, Active 2010 [facility] Drug form: TAB, BID, Start date: 05/02/11 17:00:00, Duration: 30 day, Stop date: 06/01/11 9:00:00 Coreg 3.125 mg, 1 PO No Longer Odom tab, Route: Active 2010 [facility] PO, Drug form: TAB, BID, Start date: 05/02/11 17:00:00, Duration: 30 day, Stop date: 06/01/11 9:00:00 Coumadin 10 mg, 1 PO No Longer Odom tab, Route: Active 2010 [facility] PO, Drug form: TAB, ONCE, Start date: 05/02/11 17:00:00, Stop date: 05/02/11 17:00:00 Coumadin 10 mg, 1 PO No Longer Odom tab, Route: Active 2010 [facility] PO, Drug form: TAB, ONCE, Start date: 05/01/11 17:00:00, Stop date: 05/01/11 17:00:00 Coumadin 2.5 mg, 1 PO No Longer Melo tab, Route: Active 2010 [facility] PO, Drug form: TAB, ONCE, Start date: 04/30/11 17:00:00, Stop date: 04/30/11 17:00:00 Lovenox 80 mg, 0.8 SUB-Q No Longer Hughes mL, Route: Active 2010 [facility] SUB-Q, Drug form: INJ, [id number], Start date: 04/30/11 8:00:00, Duration: 30 day, Stop date: 05/29/11 20:00:00 Zofran 2 mg, 1 mL, IVP No Longer Melo Route: IVP, Active 2010 [facility] Drug form: INJ, Q8H, PRN Nausea, Start date: 04/29/11 14:35:00, Duration: 30 day, Stop date: 05/29/11 14:34:00 NovoLog FlexPen 5 unit, 0.05 SUB-Q No Longer Justin 04/29[facility] H mL, Route: Active 2010 [facility] SUB-Q, Drug form: SOLN, Sliding Scale, PRN Blood Glucose Results, Start date: 04/29/11 13:22:00, Duration: 30 day, Stop date: 05/29/11 13:21:00 glucagon 1 mg, Route: IV No Longer Justin IV, Drug Active 2010 [facility] form: PDR/INJ, PRN, PRN Blood Glucose Results, Start date: 04/29/11 13:22:00, Duration: 30 day, Stop date: 05/29/11 13:21:00 Dextrose 50% in 50 mL, IVP No Longer Odom Water IV Route: IVP, Active 2010 [facility] PRN, Blood Glucose Results, Start date: 04/29/11 13:22:00, Duration: 30 day, Stop date: 05/29/11 13:21:00 Sodium Chloride 250 mL, IVPB No Longer Justin 0.9% IV Route: IVPB, Active 2010 [facility] PRN, Line Flush, Start date: 04/29/11 13:14:00, Duration: 30 day, Stop date: 05/29/11 13:13:00 BD Normal Saline 10 mL, IVP No Longer Justin Flush Route: IVP, Active 2010 [facility] Drug Form: INJ, PRN, PRN Line Flush, Start date: 04/29/11 13:13:00, Duration: 30 day, Stop date: 05/29/11 13:12:00 Coumadin 2.5 mg, 1 PO No Longer Odom tab, Route: Active 2010 [facility] PO, Drug form: TAB, Bedtime, Start date: 04/28/11 21:00:00, Duration: 30 day, Stop date: 05/27/11 21:00:00 Lovenox 80 mg, 0.8 SUB-Q No Longer Odom 04/29/ MH mL, Route: Active 2010 [facility] SUB-Q, Drug form: INJ, [id number], Start date: 04/28/11 20:00:00, Duration: 30 day, Stop date: 05/28/11 8:00:00 Protonix 40 mg, 1 PO No Longer Melo MH tab, Route: Active 2010 [facility] PO, Drug form: ECTAB, Before Dinner, Start date: 04/28/11 16:30:00, Duration: 30 day, Stop date: 05/27/11 16:30:00 Betapace 80 mg, 1 PO No Longer Odom tab, Route: Active 2010 [facility] PO, Drug form: TAB, BID, Start date: 04/28/11 10:52:00, Duration: 30 day, Stop date: 05/28/11 9:00:00 Coreg 6.25 mg, 1 PO No Longer Melo MH tab, Route: Active 2010 [facility] PO, Drug form: TAB, Q12H, Start date: 04/28/11 9:00:00, Duration: 30 day, Stop date: 05/27/11 21:00:00 Zaroxolyn 5 mg, 2 tab, PO No Longer Melo MH Route: PO, Active 2010 [facility] Drug form: TAB, Daily, Start date: 04/28/11 9:00:00, Duration: 30 day, Stop date: 05/27/11 9:00:00 Prinivil 10 mg, 1 PO No Longer Melo MH tab, Route: Active 2010 [facility] PO, Drug form: TAB, Q12H, Start date: 04/28/11 9:00:00, Duration: 30 day, Stop date: 05/27/11 21:00:00 Lasix 40 mg, 1 PO No Longer Melo MH tab, Route: Active 2010 [facility] PO, Drug form: TAB, Daily, Start date: 04/28/11 9:00:00, Duration: 30 day, Stop date: 05/27/11 9:00:00 Xanax 0.5 mg, 1 PO No Longer Melo tab, Route: Active 2010 [facility] PO, Drug form: TAB, Daily, Start date: 04/28/11 9:00:00, Duration: 30 day, Stop date: 05/27/11 9:00:00 K-Dur 10 10 mEq, 1 PO No Longer Melo tab, Route: Active 2010 [facility] PO, Drug form: ERTAB, Daily, Start date: 04/28/11 9:00:00, Duration: 30 day, Stop date: 05/27/11 9:00:00 Neurontin 600 mg, 2 PO No Longer Melo cap, Route: Active 2010 [facility] PO, Drug form: CAP, TID, Start date: 04/28/11 9:00:00, Duration: 30 day, Stop date: 05/27/11 17:00:00 morphine Sulfate 2 mg, 0.4 IV No Longer Odom mL, Route: Active 2010 [facility] IV, Drug form: INJ, ONCE, Start date: 04/28/11 7:31:00, Stop date: 04/28/11 7:31:00 morphine Sulfate 2 mg, 0.4 IV No Longer Melo mL, Route: Active 2010 [facility] IV, Drug form: INJ, ONCE, Start date: 04/28/11 4:44:00, Stop date: 04/28/11 4:44:00 Phenergan 25 mg, 1 PO No Longer Melo tab, Route: Active 2010 [facility] PO, Drug form: TAB, Q6H, PRN Nausea, Start date: 04/28/11 2:13:00, Duration: 30 day, Stop date: 05/28/11 2:12:00 acetaminophen-hy 1 tab, PO No Longer Melo drocodone 325 Route: PO, Active 2010 [facility] [address] mg-5 mg oral Drug Form: tablet TAB, Q6H, PRN Pain, Start date: 04/28/11 2:12:00, Duration: 30 day, Stop date: 05/28/11 2:11:00 Lovenox 40 mg, 0.4 SUB-Q No Longer Melo 04/28/ mL, Route: Active 2010 [facility] SUB-Q, Drug form: INJ, [id number], Start date: 04/28/11 1:00:00, Duration: 30 day, Stop date: 05/27/11 13:00:00 diltiazem 100 mg 100 mL, IV No Longer Melo + Sodium Rate: Active 2010 [facility] Chloride 0.9% IV titrate, 100 mL Route: IV, Total Volume: 100, Start date: 04/28/11 0:36:00, Duration: 30 day, Stop date: 05/28/11 0:35:00 glucagon 1 mg, Route: IV No Longer [facility] IV, Drug Active 2010 [facility] form: PDR/INJ, PRN, PRN Blood Glucose Results, Start date: 04/28/11 0:35:00, Duration: 30 day, Stop date: 05/28/11 0:34:00 Dextrose 50% in Route: IVP, IVP No Longer [facility] Water IV PRN, Blood Active 2010 [facility] Glucose Results, Start date: 04/28/11 0:35:00, Duration: 30 day, Stop date: 05/28/11 0:34:00 NovoLog FlexPen 10 unit, 0.1 SUB-Q No Longer Odom 04/28/ M H mL, Route: Active 2010 [facility] SUB-Q, Drug form: SOLN, Sliding Scale, PRN Blood Glucose Results, Start date: 04/28/11 0:35:00, Duration: 30 day, Stop date: 05/28/11 0:34:00 Avelox 400 mg 400 mg, 1 PO No Longer [place] Sug ar oral tablet tab, Route: Active 2010 PO, Drug form: TAB, [id number], Priority: NOW, Start date: 02/17/11 10:36:00, Duration: 30 day, Stop date: 03/18/11 10:36:00 Avelox 400 mg 400 mg, 1 PO Active [place] Sugar oral tablet tab, PO, 2010 Daily, 7 tab, Substitution Allowed, TAB Protonix 40 mg, 1 PO No Longer [place] 10/11/ MH Sugar tab, Route: Active 2010 [place] PO, Drug form: ECTAB, Before Breakfast, Start date: 02/17/11 7:30:00, Duration: 30 day, Stop date: 03/18/11 7:30:00 azithromycin 500 500 mg, 2 PO No Longer [place] 02/17/ MH Sugar mg oral tablet tab, Route: Active 2010 [facility] PO, Drug form: TAB, Daily, Start date: 02/16/11 23:00:00, Duration: 30 day, Stop date: 03/18/11 9:00:00 amLODipine 5 mg, 1 tab, PO No Longer Elvia 02/17/ MH Sug ar Route: PO, Active 2010 Drug form: TAB, Daily, Priority: NOW, Start date: 02/16/11 21:04:00, Duration: 30 day, Stop date: 03/18/11 9:00:00 morphine Sulfate 4 mg, 0.8 IM No Longer Elvia 02/17/ MH Sugar mL, Route: 2010 [facility] IM, Drug form: INJ, Q6H, PRN Pain, Start date: 02/16/11 21:03:00, Duration: 30 day, Stop date: 03/18/11 21:02:00 hydrALAZINE 10 mg, 0.5 IVP No Longer [place] 02/16/ MH Suga r mL, Route: 2010 IVP, Drug form: INJ, Q4H, PRN Elevated BP, Start date: 02/16/11 11:43:00, Duration: 30 day, Stop date: 03/18/11 11:42:00 Lopressor 5 mg, 5 mL, IVP No Longer [place] 10// MH Sugar Route: IVP, Active 2010 Drug form: INJ, Q6H, PRN Elevated BP, Start date: 02/16/11 11:43:00, Duration: 30 day, Stop date: 03/18/11 11:42:00 Visipaque 48,000 mg, IV No Longer [place] 10/ MH Sugar 150 mL, Active 2010 Route: IV, Drug form: INJ, ONCE, Start date: 02/16/11 9:05:00, Stop date: 02/16/11 9:05:00 potassium 10 mEq, 1 PO No Longer [place] 10/ MH Sugar chloride tab, Route: Active 2010 PO, Drug form: ERTAB, Daily, Start date: 02/16/11 9:00:00, Duration: 30 day, Stop date: 03/17/11 9:00:00 glyBURIDE 5 mg, 1 tab, PO No Longer [place] Suga r Route: PO, Active 2010 Drug form: TAB, Daily, Start date: 02/16/11 9:00:00, Duration: 30 day, Stop date: 03/17/11 9:00:00 Lasix 40 mg oral 40 mg, 2 PO No Longer [place] S ugar tablet tab, Route: Active 2010 PO, Drug form: TAB, Daily, Start date: 02/16/11 9:00:00, Duration: 30 day, Stop date: 03/17/11 9:00:00 morphine Sulfate 2 mg, 0.4 IVP No Longer Elvia Sugar mL, Route: Active 2010 IVP, Drug form: INJ, Q3H, PRN Pain, Start date: 02/15/11 23:21:00, Duration: 30 day, Stop date: 03/17/11 23:20:00 predniSONE 50 mg, PO No Longer [place] Sugar Route: PO, Active 2010 Drug form: TAB, BID, Start date: 02/15/11 17:00:00, Duration: 30 day, Stop date: 03/17/11 9:00:00 gabapentin 600 600 mg, 2 PO No Longer [place] Blake gar mg oral tablet cap, Route: Active 2010 PO, Drug form: CAP, TID, Start date: 02/15/11 13:00:00, Duration: 30 day, Stop date: 03/17/11 9:00:00 aspirin 81 mg 1 tab, PO, PO Active Suga r tablet, enteric Daily, 0 2010 coated tab, Substitution Allowed, ECTAB glyBURIDE 5 mg 1 tab, PO, PO Active [place] Sug ar oral tablet Daily, 30 2010 tab, Substitution Allowed, TAB doxycycline 1 cap, PO, PO No Longer Suga r hyclate 100 mg BID, cap, Active 2010 oral capsule Substitution Allowed predniSONE 50 mg 1 tab, PO, PO Active [place] S ugar oral tablet BID, tab, 2010 Substitution Allowed, TAB gabapentin 600 1 tab, PO, PO Active [place] Sug ar mg oral tablet TID, 270 2010 tab, Substitution Allowed Klor-Con M10 1 tab, PO, PO Active [place] Sugar oral tablet, Daily, tab, 2010 extended release Substitution Allowed, ERTAB lisinopril 10 mg 1 tab, PO, PO Active S ugar oral tablet BID, 30 tab, 2010 Substitution Allowed, TAB Lasix 40 mg oral 1 tab, PO, PO Active [place] S ugar tablet Daily, 30 2010 tab, Substitution Allowed, TAB Coreg 12.5 mg 1 tab, PO, PO Active S[place] r oral tablet BID, 60 tab, 2010 Substitution Allowed, TAB Zofran ODT 4 mg 4 mg, 1 tab, PO Active Sugar oral tablet, PO, Q8H, 2010 disintegrating PRN, as needed for nausea/vomit ing, Substitution Allowed, TAB Xanax 0.5 mg 1 tab, PO, PO Active Sugar oral tablet Daily, PRN, 2010 30 tab, Anxiety, Substitution Allowed cefepime 1 gm, Route: IVPB No Longer [place] Sugar IVPB, Active 2010 [id number], Start date: 02/15/11 11:00:00, Duration: 30 day, Stop date: 03/16/11 23:00:00 pantoprazole 40 mg, IVP No Longer Elvia Sugar Route: IVP, Active 2010 Drug form: INJ, Daily, Start date: 02/15/11 9:00:00, Duration: 30 day, Stop date: 03/16/11 9:00:00 Saline Flush 5 ml, Route: IVP No Longer Elvia S ugar 0.9% IVP, Drug Active 2010 Form: INJ, Q12H, Start date: 02/15/11 9:00:00, Duration: 30 day, Stop date: 03/16/11 21:00:00 aspirin 81 mg 81 mg, 1 PO No Longer Elvia Suga r tablet, enteric tab, Route: Active 2010 coated PO, Drug form: ECTAB, Daily, Start date: 02/15/11 9:00:00, Duration: 30 day, Stop date: 03/16/11 9:00:00 Lovenox 40 mg, 0.4 SUB-Q No Longer Elvia Sugar mL, Route: Active 2010 [facility] SUB-Q, Drug form: INJ, Daily, Start date: 02/15/11 9:00:00, Duration: 30 day, Stop date: 03/16/11 9:00:00 predniSONE 40 mg, 2 PO No Longer Melo Sugar tab, Route: Active 2010 [facility] PO, Drug form: TAB, Daily, Start date: 02/15/11 9:00:00, Stop date: 03/16/11 9:00:00 lisinopril 10 mg, 2 PO No Longer Elvia Sugar tab, Route: Active 2010 [facility] PO, Drug form: TAB, BID, Start date: 02/15/11 9:00:00, Duration: 30 day, Stop date: 03/16/11 17:00:00 DuoNeb 3 ml, Route: INHALATION No Longer Elvia Sug ar inhalation INHALATION, Active 2010 [facility] solution Drug Form: SOLN, Q6H, Start date: 02/15/11 0:00:00, Duration: 30 day, Stop date: 03/16/11 18:00:00 Neurontin 600 mg, 2 PO No Longer [place] Sugar cap, Route: Active 2010 PO, Drug form: CAP, Q8H, Start date: 02/14/11 23:40:00, Duration: 30 day, Stop date: 03/16/11 16:00:00 ceftriaxone 1 gm, Route: IVPB No Longer Melo Blake gar IVPB, Active 2010 [id number], Start date: 02/14/11 23:00:00, Duration: 30 day, Stop date: 03/15/11 23:00:00 azithromycin 500 mg, IVPB No Longer Elvia Sugar Route: IVPB, Active 2010 [id number], Start date: 02/14/11 23:00:00, Duration: 30 day, Stop date: 03/15/11 23:00:00 Vicodin 5/500 1 tab, PO No Longer Elvia Sugar oral tablet Route: PO, Active 2010 Drug Form: TAB, Q4H, PRN Pain, Start date: 02/14/11 22:13:00, Duration: 30 day, Stop date: 03/16/11 22:12:00 acetaminophen 650 mg, 2 PO No Longer Elvia Sug ar tab, Route: Active 2010 PO, Drug form: TAB, Q4H, PRN Pain/Fever, Start date: 02/14/11 22:12:00, Duration: 30 day, Stop date: 03/16/11 22:11:00 guaifenesin 100 mg, 5 PO No Longer Elvia Sugar mL, Route: Active 2010 PO, Drug form: LIQ, Q4H, PRN Cough, Start date: 02/14/11 22:12:00, Duration: 30 day, Stop date: 03/16/11 22:11:00 Insulin 10 unit, 0.1 SUB-Q No Longer Elvia Sugar (Novolog) mL, Route: Active 2010 Sliding Scale - SUB-Q, Drug Low form: SOLN, Sliding Scale, PRN Blood Glucose Results, Start date: 02/14/11 22:08:00, Duration: 30 day, Stop date: 03/16/11 21:07:00 glucagon 1 mg, Route: IM No Longer Elvia Sugar IM, Drug Active 2010 [facility] form: PDR/INJ, PRN, PRN Blood Glucose Results, Start date: 02/14/11 22:08:00, Duration: 30 day, Stop date: 03/16/11 21:07:00 Dextrose 50% 25 gm, 50 IVP No Longer Elvia Suga r Syringe ml, Route: Active 2010 IVP, Drug Form: INJ, PRN, PRN Blood Glucose Results, Start date: 02/14/11 22:08:00, Duration: 30 day, Stop date: 03/16/11 21:07:00 Neurontin 600 mg, 2 PO No Longer Elvia Sugar cap, Route: Active 2010 PO, Drug form: CAP, Q8H, Priority: NOW, Start date: 02/14/11 22:06:00, Duration: 30 day, Stop date: 03/16/11 16:00:00 Zofran 4 mg, 1 tab, PO No Longer Elvia Sugar Route: PO, Active 2010 Drug form: TAB, Q8H, PRN Nausea, Start date: 02/14/11 22:05:00, Duration: 30 day, Stop date: 03/16/11 22:04:00 Xanax 0.5 mg 0.5 mg, 1 PO No Longer Elvia Suga r oral tablet tab, Route: Active 2010 PO, Drug form: TAB, Bedtime, Priority: NOW, Start date: 02/14/11 22:04:00, Duration: 30 day, Stop date: 03/16/11 21:00:00 Coreg 6.25 mg, 2 PO No Longer Mendez Sugar tab, Route: Active 2010 PO, Drug form: TAB, Q12H, Priority: NOW, Start date: 02/14/11 22:04:00, Stop date: 03/16/11 21:00:00 Saline Flush 5 ml, Route: IVP No Longer Elvia S ugar 0.9% IVP, Drug Active 2010 Form: INJ, PRN, PRN Line Flush, Start date: 02/14/11 21:35:00, Duration: 30 day, Stop date: 03/16/11 20:34:00 nitroglycerin SL 0.4 mg, 1 SL No Longer Elvia Sugar Tab tab, Route: 2010 SL, Drug form: TAB, Q5Min, PRN Chest Pain, Start date: 02/14/11 21:35:00, Duration: 3 doses or times, Stop date: Limited # of times aspirin 325 mg 325 mg, 1 PO No Longer Andrei Blake gar tablet tab, Route: Active 2010 PO, Drug form: TAB, ONCE, Priority: STAT, Start date: 02/14/11 20:28:00, Stop date: 02/14/11 20:28:00 ondansetron 4 mg, 2 mL, IVP No Longer Andrei Sug ar Route: IVP, Active 2010 Drug form: INJ, ONCE, Priority: STAT, Start date: 02/14/11 19:31:00, Stop date: 02/14/11 19:31:00 morphine Sulfate 4 mg, 1 mL, IVP No Longer Forbes H Sugar Route: IVP, Active 2010 Drug form: INJ, ONCE, Priority: STAT, Start date: 02/14/11 19:30:00, Stop date: 02/14/11 19:30:00 Saline Flush 5 ml, Route: IVP No Longer Forbes S ugar 0.9% IVP, Drug Active 2010 Form: INJ, PRN, PRN Line Flush, Start date: 02/14/11 18:21:00, Duration: 30 day, Stop date: 03/16/11 17:20:00 Allergies, Adverse Reactions, Alerts Substance Category Reaction Severity Reaction Status Date Comments S ource type Reported sulfa drugs Assertion Drug Active allergy [place] Plavix Assertion Drug Active allergy [facility] t Bactrim Assertion hives Severe Drug Active allergy [place] NKFA Assertion Food Active allergy [facility] t Immunizations Immunization Date Site Status Last Comments Source Given Updated pneumococcal Right completed [facility] 13-valent 8 [place], vaccine medius [facility] influenza virus Left completed [facility] PID Sugar vaccine, 8 gl[place], inactivated medius [facility] t Results Order Name Results Value Reference Date Interpretation Comments Didi rce Range CHEM PANEL Calcium Lvl 8.3 8.5 - 10.5 12/01 [facility] CHEM PANEL AGAP 13.2 10.0 - 12/01 .0 [facility] CHEM PANEL Potassium 4.2 3.5 - 5.1 12/01 Lvl [facility] CHEM PANEL Chloride Lvl 104 95 - 109 12/01 [facility] CHEM PANEL CO2 29 24 - 32 12/01 [facility] CHEM PANEL Sodium Lvl 142 135 - 145 12/01 [facility] CHEM PANEL Creatinine 2.10 0.50 - 12/01 Lvl 1.40 [facility] CHEM PANEL BUN 26 7 - 22 12/01 [facility] CHEM PANEL eGFR 33 12/01 Result Comment: The [facility] eGFR is calculated using the CKD-EPI formula. In most young, healthy individuals the eGFR will be >90 mL/min/1.73m2 . The eGFR declines with age. An eGFR of 60-89 may be normal in some populations, particularly the elderly, for whom the CKD-EPI formula has not been extensively validated. Use of the eGFR is not recommended in the following populations:< br/>
Paty viduals with unstable creatinine concentration s, including patients and those with serious co-morbid conditions.<b r/>
Patie nts with extremes in muscle mass or diet.

The data above are obtained from the National Kidney Disease Education Program (NKDEP) which additionally recommends that when the eGFR is used in patients with extremes of body mass index for purposes of drug dosing, the eGFR should be multiplied by the estimated BMI. CHEM PANEL Glucose Lvl 104 70 - 99 12/01 [facility] HEMATOLOGY Basophils 0.8 0.0 - 1.0 12/01 [facility] HEMATOLOGY Eosinophils 4.6 0.0 - 4.0 12/01 [facility] HEMATOLOGY Segs 58.6 45.0 - 12/01 MH 75.0 [facility] HEMATOLOGY Lymphocytes 31.1 20.0 - 12/01 MH 40.0 [facility] HEMATOLOGY Monocytes 4.9 2.0 - 12.0 12/01 [facility] HEMATOLOGY Neutrophils 2.5 1.5 - 8.1 12/01 MH # /2018 [facility] HEMATOLOGY Lymphocytes 1.3 1.0 - 5.5 12/01 # /2018 [facility] HEMATOLOGY Eosinophils 0.2 0.0 - 0.5 12/01 MH # /2018 [facility] HEMATOLOGY Monocytes # 0.2 0.0 - 0.8 12/01 [facility] HEMATOLOGY Hct 33.4 42.0 - 12/01 MH 54.0 [facility] HEMATOLOGY MCV 94.2 80.0 - 12/01 MH 94.0 [facility] HEMATOLOGY RBC 3.54 4.70 - 12/01 MH 6.10 [facility] HEMATOLOGY MCH 30.5 27.0 - 12/01 MH 31.0 [facility] HEMATOLOGY WBC 4.2 3.7 - 10.4 12/01 [facility] Hgb 10.8 14.0 - 12/01 MH 18.0 [facility] RDW 16.8 11.5 - 12/01 MH 14. [facility] HEMATOLOGY Platelet 77 133 - 450 12/01 [facility] HEMATOLOGY MPV 8.3 7.4 - 10.4 12/01 [facility] HEMATOLOGY MCHC 32.3 32.0 - 12/01 MH 36.0 /2018 [facility] CARDIAC Troponin-I 0.18 0.00 - 11/30 ENZYMES 0.40 [facility] CARDIAC Troponin-I 0.21 0.00 - 11/30 ENZYMES 0.40 [facility] CARDIAC BNP 384 <=100 11/30 EN[facility]YM[facility] pg/mL /2018 [facility] CHEM PANEL Phosphorus 2.5 2.5 - 4.5 11/30 [facility] CHEM PANEL Magnesium 2.0 1.8 - 2.4 11/30 Lvl [facility] CHEM PANEL eGFR 35 11/30 Result Comment: The [facility] eGFR is calculated using the CKD-EPI formula. In most young, healthy individuals the eGFR will be >90 mL/min/1.73m2 . The eGFR declines with age. An eGFR of 60-89 may be normal in some populations, particularly the elderly, for whom the CKD-EPI formula has not been extensively validated. Use of the eGFR is not recommended in the following populations:< br/>
Paty viduals with unstable creatinine concentration s, including patients and those with serious co-morbid conditions.<b r/>
Patie nts with extremes in muscle mass or diet.

The data above are obtained from the National Kidney Disease Education Program (NKDEP) which additionally recommends that when the eGFR is used in patients with extremes of body mass index for purposes of drug dosing, the eGFR should be multiplied by the estimated BMI. CHEM PANEL Alk Phos 68 39 - 136 11/30 [facility] CHEM PANEL Bili Total 0.6 0.2 - 1.3 11/30 [facility] CHEM PANEL AST 13 0 - 37 11/30 [facility] CHEM PANEL Potassium 3.9 3.5 - 5.1 11/30 Lvl [facility] CHEM PANEL CO2 27 24 - 32 11/30 [facility] CHEM PANEL Calcium Lvl 8.2 8.5 - 10.5 11/30 [facility] CHEM PANEL Chloride Lvl 105 95 - 109 11/30 [facility] CHEM PANEL Total 7.8 6.4 - 8.4 07/24 MH Protein [facility] CHEM PANEL Sodium Lvl 138 135 - 145 11/30 [facility] CHEM PANEL Creatinine 2.00 0.50 - 11/30 MH Lvl 1.40 /2019 [facility] CHEM PANEL Albumin Lvl 3.1 3.5 - 5.0 11/30 [facility] CHEM PANEL Glucose Lvl 106 70 - 99 11/30 [facility] CHEM PANEL BUN 30 7 - 22 11/30 [facility] CHEM PANEL ALT 14 0 - 65 11/30 [facility] CHEM PANEL A/G Ratio 0.7 0.7 - 1.6 11/30 [facility] CHEM PANEL Globulin 4.7 2.7 - 4.2 11/30 [facility] CHEM PANEL AGAP 9.9 10.0 - 11/30 MH 20.0 [facility] CHEM PANEL B/C Ratio 15 6 - 25 11/30 [facility] HEMATOLOGY MCHC 32.1 32.0 - 11/30 MH 36.0 [facility] HEMATOLOGY RDW 17.8 11.5 - 11/30 MH 14.5 [facility] HEMATOLOGY MCH 30.7 27.0 - 11/30 MH 31.0 [facility] HEMATOLOGY RBC 3.46 4.70 - 11/30 MH 6.10 [facility] HEMATOLOGY WBC 4.9 3.7 - 10.4 11/30 /2018 [facility] HEMATOLOGY MPV 8.2 7.4 - 10.4 11/30 /2018 [facility] HEMATOLOGY Platelet 91 133 - 450 11/30 /2018 [facility] HEMATOLOGY MCV 95.7 80.0 - 11/30 MH 94.0 /2018 [facility] HEMATOLOGY Hgb 10.6 14.0 - 11/30 MH 18.0 [facility] HEMATOLOGY Hct 33.1 42.0 - 11/30 MH 54.0 /2018 [facility] HEMATOLOGY Neutrophils 3.0 1.5 - 8.1 11/30 MH # /2018 [facility] HEMATOLOGY Lymphocytes 1.5 1.0 - 5.5 11/30 MH # /2018 [facility] HEMATOLOGY Monocytes # 0.2 0.0 - 0.8 11/30 [facility] HEMATOLOGY Eosinophils 0.2 0.0 - 0.5 11/30 MH # /2018 [facility] HEMATOLOGY Basophils # 0.0 0.0 - 0.2 11/30 [facility] HEMATOLOGY Segs 61.3 45.0 - 11/30 MH 75.0 /2018 [facility] HEMATOLOGY Lymphocytes 29.5 20.0 - 11/30 MH 40.0 /2019 [facility] HEMATOLOGY Eosinophils 4.4 0.0 - 4.0 11/30 [facility] HEMATOLOGY Basophils 0.5 0.0 - 1.0 11/30 [facility] HEMATOLOGY Monocytes 4.3 2.0 - 12.0 11/30 [facility] LIPIDS CHD Risk 1.75 4.00 - 11/30 MH 7.30 [facility] LIPIDS VLDL 14 11/30 [facility] LIPIDS LDL 24 <=99 mg/dL 11/30 (Calculated) [facility] LIPIDS Trig 71 <=149 11/30 MH mg/dL [facility] LIPIDS HDL 51 >=61 mg/dL 11/30 [facility] LIPIDS Chol 89 <=199 11/30 mg/dL [facility] SPECIAL Hgb A1C 6.8 <=5.6 % 11/30 CHEMISTRY [facility] REFERENCE Misc Lab See 03/29 Result LAB Comment Comment: [facility] RESULTS Reference lab results scanned in [employer]. Results displayed in [id number]-Outside Lab Documents (Imaged) under date/time results were scanned. Report sent for scanning on 04/06/2018 16:14. REFERENCE Test Name global 03/29 LAB fish, [facility] RESULTS enriched HEMATOLOGY MCH 30.1 27.0 - 03/29 31.0 [facility] HEMATOLOGY MCHC 32.4 32.0 - 03/29 MH 36.0 [facility] HEMATOLOGY MCV 92.8 80.0 - 03/29 94.0 [facility] HEMATOLOGY Hgb 11.5 14.0 - 03/29 MH 18.0 [facility] HEMATOLOGY Hct 35.6 42.0 - 03/29 MH 54.0 [facility] HEMATOLOGY RDW 18.2 11.5 - 03/29 MH 14.5 [facility] HEMATOLOGY MPV 9.8 7.4 - 10.4 03/29 [facility] HEMATOLOGY Platelet 113 133 - 450 03/29 [facility] HEMATOLOGY WBC 5.9 3.7 - 10.4 03/29 [facility] HEMATOLOGY RBC 3.84 4.70 - 03/29 MH 6.10 [facility] ELECTROLYT AGAP 10.6 10.0 - 03/29 ES 20.0 [facility] ELECTROLYT Glucose Lvl 103 70 - 99 11 [facility] ELECTROLYT eGFR 42 03/29 Result Comment: The [facility] eGFR is calculated using the CKD-EPI formula. In most young, healthy individuals the eGFR will be >90 mL/min/1.73m2 . The eGFR declines with age. An eGFR of 60-89 may be normal in some populations, particularly the elderly, for whom the CKD-EPI formula has not been extensively validated. Use of the eGFR is not recommended in the following populations:< br/>
Paty viduals with unstable creatinine concentration s, including patients and those with serious co-morbid conditions.<b r/>
Patie nts with extremes in muscle mass or diet.

The data above are obtained from the National Kidney Disease Education Program (NKDEP) which additionally recommends that when the eGFR is used in patients with extremes of body mass index for purposes of drug dosing, the eGFR should be multiplied by the estimated BMI. ELECTROLYT Calcium Lvl 7.9 8.5 - 10.5 03/29 [facility] ELECTROLYT CO2 26 24 - 32 03/29 [facility] ELECTROLYT Potassium 3.6 3.5 - 5.1 03/29 ES Lvl /2017 [facility] ELECTROLYT Sodium Lvl 142 135 - 145 03/29 [facility] ELECTROLYT Chloride Lvl 109 95 - 109 03/29 [facility] ELECTROLYT Creatinine 1.70 0.50 - 03/29 ES Lvl 1.40 [facility] ELECTROLYT BUN 20 7 - 22 03/29 [facility] HEMATOLOGY PT 17.7 12.0 - 03/29 14.7 [facility] HEMATOLOGY INR 1.45 0.85 - 03/29 1.17 [facility] LIPIDS CHD Risk 1.69 4.00 - 03/29 7.30 [facility] LIPIDS VLDL 13 03/29 [facility] LIPIDS LDL 16 <=99 mg/dL 03/29 (Calculated) [facility] LIPIDS Chol 71 <=199 03/29 mg/dL [facility] LIPIDS HDL 42 >=61 mg/dL 03/29 [facility] LIPIDS Trig 66 <=149 03/29 mg/dL [facility] IMMUNOLOGY IgA Lvl 62.0 68.0 - 03/28 378.0 /2017 [facility] IMMUNOLOGY IgM Lvl 30.0 60.0 - 03/28 MH 263.0 /2017 [facility] IMMUNOLOGY IgG Lvl 2010 694 - 1618 03/28 MH /2017 [facility] IMMUNOLOGY Tot Prot 8 03/28 MH (UPE) /2017 [facility] IMMUNOLOGY Interp (UPE) Urine 03/28 MH protein /2017 [facility] electropho resis shows minimal proteinuri a. No monoclonal bands are identified ; however, evaluation is limited by the small amount of protein and the resulting lack of discernibl e bands on the electropho retic gel. Interpret ation performed at [facility]. IMMUNOLOGY Spec Type random, 03/28 MH (UPE) 100x /2017 [facility] CHEM PANEL R-1-Txsitqoc 3.5 1.0 - 2.3 11 MH b /2017 [facility] IMMUNOLOGY Lambda Free 130.44 5.70 - 03/27 Light Chains 26.30 /2017 [facility] IMMUNOLOGY Guffey Free 13.69 3.30 - 03/27 Light Chains 19.40 /2017 [facility] IMMUNOLOGY Guffey/Lambda 0.10 0.26 - 03/27 Free Light 1.65 [facility] Chains Ratio IMMUNOLOGY Albumin 3.25 3.57 - 03/27 MH (SPE) 5.55 /2017 [facility] IMMUNOLOGY Alpha 2 Glob 0.78 0.45 - 03/27 MH 1.00 /2017 [facility] IMMUNOLOGY Alpha 1 Glob 0.32 0.18 - 03/27 MH 0.41 /2017 [facility] IMMUNOLOGY Beta Glob 0.61 0.50 - 03/27 MH 1.15 /2017 [facility] IMMUNOLOGY Tot Prot 7.0 6.4 - 8.4 03/27 MH (SPE) /2017 [facility] IMMUNOLOGY Gamma Glob 2.04 0.71 - 03/27 MH 1.57 [facility] IMMUNOLOGY SPE Interp Total 03/27 protein is /2017 [facility] within reference range; albumin is decreased. A monoclonal protein (1.79 g/dl) is present in the gamma globulin region. Serum and urine immunofixa tion studies are recommende d for further evaluation . Interpreta tion performed at [facility]. IMMUNOLOGY Alpha 1 % 4.6 2.8 - 4.9 03/27 [facility] IMMUNOLOGY Albumin % 46.4 55.8 - 03/27 MH 66.1 /2017 [facility] IMMUNOLOGY Beta % 8.7 7.8 - 13.7 03/27 [facility] IMMUNOLOGY Alpha 2 % 11.2 7.0 - 11.9 03/27 [facility] IMMUNOLOGY Gamma % 29.1 11.1 - 03/27 MH 18.7 /2017 [facility] CARDIAC BNP 171 <=100 03/27 ENZYMES pg/mL /2017 [facility] ELECTROLYT AGAP 10.7 10.0 - 03/27 MH ES 20.0 /2017 [facility] ELECTROLYT Calcium Lvl 7.5 8.5 - 10.5 03/27 ES [facility] ELECTROLYT CO2 26 24 - 32 03/27 ES [facility] ELECTROLYT BUN 22 7 - 22 03/27 ES [facility] ELECTROLYT Creatinine 1.60 0.50 - 03/27 MH ES Lvl 1.40 /2017 [facility] ELECTROLYT Chloride Lvl 108 95 - 109 03/27 ES [facility] ELECTROLYT Sodium Lvl 141 135 - 145 03/27 ES [facility] ELECTROLYT Potassium 3.7 3.5 - 5.1 03/27 ES Lvl /2017 [facility] ELECTROLYT eGFR 46 03/27 Result MH Comment: The [facility] eGFR is calculated using the CKD-EPI formula. In most young, healthy individuals the eGFR will be >90 mL/min/1.73m2 . The eGFR declines with age. An eGFR of 60-89 may be normal in some populations, particularly the elderly, for whom the CKD-EPI formula has not been extensively validated. Use of the eGFR is not recommended in the following populations:< br/>
Paty viduals with unstable creatinine concentration s, including patients and those with serious co-morbid conditions.<b r/>
Patie nts with extremes in muscle mass or diet.

The data above are obtained from the National Kidney Disease Education Program (NKDEP) which additionally recommends that when the eGFR is used in patients with extremes of body mass index for purposes of drug dosing, the eGFR should be multiplied by the estimated BMI. ELECTROLYT Glucose Lvl 87 70 - 99 03/27 ES [facility] HEMATOLOGY INR 2.09 0.85 - 03/27 MH 1. [facility] HEMATOLOGY PT 23.7 12.0 - 03/27 MH 14.7 [facility] URINE AND Occult Bld Positive Negative 03/26 STOOL Stl *ABN* /2017 [facility] (03/26/18 8:47 AM) CARDIAC BNP 258 <=100 03/26 ENZYMES pg/mL /2017 [facility] ELECTROLYT AGAP 9.5 10.0 - 03/26 ES 20.0 /2017 [facility] ELECTROLYT eGFR 40 03/26 Result Comment: The [facility] eGFR is calculated using the CKD-EPI formula. In most young, healthy individuals the eGFR will be >90 mL/min/1.73m2 . The eGFR declines with age. An eGFR of 60-89 may be normal in some populations, particularly the elderly, for whom the CKD-EPI formula has not been extensively validated. Use of the eGFR is not recommended in the following populations:< br/>
Paty viduals with unstable creatinine concentration s, including patients and those with serious co-morbid conditions.<b r/>
Patie nts with extremes in muscle mass or diet.

The data above are obtained from the National Kidney Disease Education Program (NKDEP) which additionally recommends that when the eGFR is used in patients with extremes of body mass index for purposes of drug dosing, the eGFR should be multiplied by the estimated BMI. ELECTROLYT Sodium Lvl 140 135 - 145 03/26 ES [facility] ELECTROLYT Chloride Lvl 105 95 - 109 03/26 ES [facility] ELECTROLYT Potassium 3.5 3.5 - 5.1 03/26 ES Lvl /2017 [facility] ELECTROLYT CO2 29 24 - 32 03/26 ES /2017 [facility] ELECTROLYT Calcium Lvl 7.6 8.5 - 10.5 03/26 ES [facility] ELECTROLYT Creatinine 1.80 0.50 - 03/26 ES Lvl 1.40 /2017 [facility] ELECTROLYT Glucose Lvl 103 70 - 99 03/26 ES /2017 [facility] ELECTROLYT BUN 25 7 - 22 03/26 ES /2017 [facility] HEMATOLOGY PT 27.1 12.0 - 03/26 14.7 /2017 [facility] HEMATOLOGY INR 2.48 0.85 - 03/26 1. [facility] HEMATOLOGY Retic Auto 1.7 0.5 - 1.5 03/26 [facility] HEMATOLOGY Basophils 0.2 0.0 - 1.0 03/26 [facility] HEMATOLOGY Lymphocytes 1.4 1.0 - 5.5 03/26 # /2017 [facility] HEMATOLOGY Neutrophils 3.5 1.5 - 8.1 03/26 # /2017 [facility] HEMATOLOGY Eosinophils 0.1 0.0 - 0.5 03/26 MH # /2017 [facility] HEMATOLOGY Monocytes # 0.3 0.0 - 0.8 03/26 /2017 [facility] HEMATOLOGY Segs 66.1 45.0 - 03/26 MH 75.0 /2017 [facility] HEMATOLOGY Monocytes 5.2 2.0 - 12.0 03/26 /2017 [facility] HEMATOLOGY Lymphocytes 27.1 20.0 - 03/26 MH 40.0 /2017 [facility] HEMATOLOGY Eosinophils 1.4 0.0 - 4.0 03/26 /2017 [facility] HEMATOLOGY MCHC 33.3 32.0 - 03/26 MH 36.0 /2017 [facility] HEMATOLOGY MCH 30.6 27.0 - 03/26 MH 31.0 [facility] HEMATOLOGY Platelet 88 133 - 450 03/26 /2017 [facility] HEMATOLOGY RDW 17.5 11. - 03/26 MH 14. [facility] HEMATOLOGY MPV 9.0 7.4 - 10.4 03/26 /2017 [facility] HEMATOLOGY WBC 5.3 3.7 - 10.4 03/26 /2017 [facility] HEMATOLOGY Hgb 11.6 14.0 - 03/26 MH 18.0 [facility] HEMATOLOGY RBC 3.81 4.70 - 03/26 MH 6. [facility] HEMATOLOGY MCV 91.8 80.0 - 03/26 MH 94.0 [facility] HEMATOLOGY Hct 35.0 42.0 - 03/26 MH 54.0 /2017 [facility] HEMATOLOGY RBC 3.78 4.70 - 12/ MH 6. [facility] HEMATOLOGY MPV 9.4 7.4 - 10.4 04/11 [facility] HEMATOLOGY Platelet 74 133 - 450 04/11 [facility] HEMATOLOGY RDW 16.3 11.5 - 04/11 MH 14. [facility] HEMATOLOGY MCV 90.7 80.0 - 12 MH 94.0 [facility] HEMATOLOGY MCHC 33.9 32.0 - 12 MH 36.0 [facility] HEMATOLOGY MCH 30.8 27.0 - 12 MH 31.0 [facility] HEMATOLOGY Hct 34.3 42.0 - 12/ MH 54.0 [facility] HEMATOLOGY Hgb 11.6 14.0 - 12/ MH 18.0 [facility] HEMATOLOGY WBC 4.2 3.7 - 10.4 04/11 /2016 [facility] HEMATOLOGY Monocytes 5.2 2.0 - 12.0 04/11 /2016 [facility] HEMATOLOGY Eosinophils 2.4 0.0 - 4.0 04/11 /2016 [facility] HEMATOLOGY Segs 58.5 45.0 - 04/11 75.0 [facility] HEMATOLOGY Lymphocytes 33.2 20.0 - 12/ MH 40.0 [facility] HEMATOLOGY Monocytes # 0.2 0.0 - 0.8 04/11 [facility] HEMATOLOGY Eosinophils 0.1 0.0 - 0.5 04/11 # /2016 [facility] HEMATOLOGY Segs-Bands # 2.4 1.5 - 8.1 04/11 [facility] HEMATOLOGY Lymphocytes 1.4 1.0 - 5.5 04/11 [facility] HEMATOLOGY Basophils 0.7 0.0 - 1.0 04/11 [facility] URINE AND Occult Bld Negative Negative 04/10 STOOL Stl (04/10/17 9:39 AM) [facility] HEMATOLOGY Eosinophils 0.1 0.0 - 0.5 04/10 /2016 [facility] HEMATOLOGY Monocytes # 0.2 0.0 - 0.8 04/10 [facility] HEMATOLOGY Lymphocytes 1.5 1.0 - 5.5 04/10 # [facility] HEMATOLOGY Segs-Bands # 2.3 1.5 - 8.1 04/10 [facility] HEMATOLOGY Basophils 0.7 0.0 - 1.0 04/10 [facility] HEMATOLOGY Eosinophils 2.6 0.0 - 4.0 04/10 [facility] HEMATOLOGY Monocytes 5.2 2.0 - 12.0 04/10 [facility] HEMATOLOGY Lymphocytes 35.9 20.0 - 04/10 40.0 [facility] HEMATOLOGY Segs 55.6 45.0 - 12 75.0 [facility] HEMATOLOGY Platelet 58 133 - 450 04/10 [facility] HEMATOLOGY MPV 9.1 7.4 - 10.4 04/10 [facility] HEMATOLOGY Hct 32.5 42.0 - 04/10 54.0 [facility] HEMATOLOGY MCHC 34.1 32.0 - 04/10 36.0 [facility] HEMATOLOGY RDW 16.2 11.5 - 04/10 14.5 [facility] HEMATOLOGY MCV 90.3 80.0 - 04/10 94.0 [facility] HEMATOLOGY MCH 30.8 27.0 - 12/02 31.0 /2017 [facility] HEMATOLOGY Hgb 11.1 14.0 - 04/10 18.0 /2016 [facility] HEMATOLOGY WBC 4.2 3.7 - 10.4 04/10 [facility] HEMATOLOGY RBC 3.60 4.70 - 12 6.10 /2016 [facility] ANEMIA Vitamin B12 529 254 - 1320 04/09 STUDY Lvl [facility] ANEMIA Folate Lvl 7.0 >=3.0 04/09 STUDY ng/mL /2016 [facility] ANEMIA Ferritin Lvl 316 22 - 275 04/09 STUDY /2016 [facility] ANEMIA % Satur Fe 22 12 - 57 04/09 STUDY /2016 [facility] ANEMIA UIBC 176 110 - 370 04/09 STUDY /2016 [facility] ANEMIA TIBC 226 228 - 428 04/09 STUDY [facility] ANEMIA Iron 50 45 - 160 04/09 STUDY [facility] CHEM PANEL LDH 301 98 - 192 04/09 [facility] CHEM PANEL Bili Total 0.7 0.2 - 1.3 04/09 [facility] CHEM PANEL Bili Direct 0.3 0.0 - 0.3 04/09 [facility] CHEM PANEL Bili 0.4 0.0 - 1.0 04/09 Indirect [facility] HEMATOLOGY PB Smear Mild 04/09 Path anemia /2016 [facility] with normochrom ic, normocytic indices. Moderate thrombocyt openia. No significan t microangio pathic changes identified . Clinical and laboratory correlatio n required. HEMATOLOGY Retic Auto 0.8 0.5 - 1.5 04/09 [facility] HEMATOLOGY PTT 28.0 22.9 - 04/09 35.8 /2016 [facility] HEMATOLOGY PT 19.1 12.0 - 04/09 14.7 /2016 [facility] HEMATOLOGY INR 1.59 0.85 - 04/09 1.17 /2016 [facility] HEMATOLOGY FSP >=20 ug/ml <5 ug/ml 04/09 [facility] HEMATOLOGY Fibrinogen 436 230 - 510 04/09 Lvl [facility] HEMATOLOGY D-Dimer 9.69 04/09 [facility] IMMUNOLOGY Haptoglobin 25 16 - 200 04/09 [facility] URINE AND UA <=1.0 0.1 - 1.0 04/09 STOOL Urobilinogen /2016 [facility] URINE AND UA Color Yellow 04/09 STOOL /2016 [facility] URINE AND UA Hyal Cast 7 0 - 2 04/09 STOOL [facility] URINE AND UA Nitrite Negative Negative 04/09 STOOL (04/09/17 9:14 AM) /2016 [facility] est URINE AND UA Blood Negative Negative 04/09 STOOL (04/09/17 9:14 AM) [facility] URINE AND UA Leuk Est Negative Negative 04/09 STOOL (04/09/17 9:14 AM) [facility] URINE AND UA Ketones Negative Negative 04/09 STOOL mg/dL mg/dL [facility] URINE AND UA Turbidity Clear Clear 04/09 STOOL (04/09/17 9:14 AM) [facility] URINE AND UA Spec Grav 1.010 <=1.030 04/09 STOOL [facility] URINE AND UA Protein Negative Negative 04/09 STOOL mg/dL mg/dL [facility] URINE AND UA Glucose Negative Negative 04/09 STOOL mg/dL mg/dL [facility] URINE AND UA pH 6.0 5.0 - 8.0 04/09 STOOL [facility] URINE AND UA WBC 1 0 - 5 04/09 STOOL [facility] URINE AND UA Sq Epi Occasional Few /LPF 04/09 STOOL /LPF /2016 [facility] URINE AND UA Mucus Few /LPF None Seen 04/09 STOOL /LPF [facility] URINE AND UA RBC 1 0 - 2 04/09 STOOL [facility] URINE AND UA Bili Negative Negative 04/09 STOOL *NA* /2016 [facility] (04/09/17 9:14 AM) CARDIAC BNP 213 <=100 04/09 [facility] pg/mL [facility] CARDIAC CK MB 3.7 0.5 - 3.6 04/09 [facility] /2016 [facility] [facility] Troponin-I 0.18 0.00 - 04/09 ENZYMES 0.40 [facility] CHEM PANEL Ammonia <10.0 <=45.0 04/09 uMol/L [facility] ELECTROLYT AGAP 11.4 10.0 - 04/09 ES 20.0 [facility] ELECTROLYT eGFR 28 04/09 Result ES Comment: The [facility] eGFR is calculated using the CKD-EPI formula. In most young, healthy individuals the eGFR will be >90 mL/min/1.73m2 . The eGFR declines with age. An eGFR of 60-89 may be normal in some populations, particularly the elderly, for whom the CKD-EPI formula has not been extensively validated. Use of the eGFR is not recommended in the following populations:< br/>
Paty viduals with unstable creatinine concentration s, including patients and those with serious co-morbid conditions.<b r/>
Patie nts with extremes in muscle mass or diet.

The data above are obtained from the National Kidney Disease Education Program (NKDEP) which additionally recommends that when the eGFR is used in patients with extremes of body mass index for purposes of drug dosing, the eGFR should be multiplied by the estimated BMI. ELECTROLYT BUN 23 7 - 22 04/09 [facility] ELECTROLYT Creatinine 2.40 0.50 - 04/09 ES Lvl 1.40 [facility] ELECTROLYT Sodium Lvl 134 135 - 145 04/09 [facility] ELECTROLYT Potassium 3.4 3.5 - 5.1 04/09 ES Lvl /2016 [facility] ELECTROLYT Chloride Lvl 100 95 - 109 04/09 [facility] ELECTROLYT CO2 26 24 - 32 04/09 [facility] ELECTROLYT Calcium Lvl 8.1 8.5 - 10.5 04/09 [facility] ELECTROLYT Glucose Lvl 118 70 - 99 04/09 [facility] HEMATOLOGY Platelet 61 133 - 450 04/09 [facility] HEMATOLOGY RDW 16.6 11.5 - 04/09 14.5 [facility] HEMATOLOGY MCHC 33.3 32.0 - 04/09 36.0 [facility] HEMATOLOGY MCV 91.2 80.0 - 04/09 94.0 [facility] HEMATOLOGY MCH 30.4 27.0 - 04/09 MH 31.0 [facility] HEMATOLOGY WBC 4.3 3.7 - 10.4 04/09 [facility] HEMATOLOGY RBC 3.84 4.70 - 04/09 MH 6.10 [facility] HEMATOLOGY Hgb 11.7 14.0 - 04/09 18.0 [facility] HEMATOLOGY MPV 9.5 7.4 - 10.4 04/09 [facility] HEMATOLOGY Hct 35.0 42.0 - 04/09 MH 54.0 /2016 [facility] HEMATOLOGY PTT 26.7 22.9 - 04/09 MH 35.8 [facility] HEMATOLOGY INR 1.67 0.85 - 12 MH 1.17 /2016 [facility] HEMATOLOGY PT 19.8 12.0 - 04/09 14.7 /2016 [facility] HEMATOLOGY Lymphocytes 26.2 20.0 - 12 MH 40.0 /2016 [facility] HEMATOLOGY Segs 69.6 45.0 - 12 MH 75.0 /2016 [facility] HEMATOLOGY Eosinophils 1.0 0.0 - 4.0 04/09 [facility] HEMATOLOGY Monocytes 3.0 2.0 - 12.0 04/09 [facility] HEMATOLOGY Basophils 0.2 0.0 - 1.0 04/09 [facility] HEMATOLOGY Monocytes # 0.1 0.0 - 0.8 04/09 [facility] HEMATOLOGY Lymphocytes 1.1 1.0 - 5.5 04/09 # /2016 [facility] HEMATOLOGY Basophils # 0.0 0.0 - 0.2 04/09 [facility] HEMATOLOGY Segs-Bands # 3.0 1.5 - 8.1 04/09 [facility] HEMATOLOGY Eosinophils 0.0 0.0 - 0.5 04/09 MH /2016 [facility] HEMATOLOGY MPV 10.7 7.4 - 10.4 03/23 [facility] HEMATOLOGY MCV 92.8 80.0 - 03/23 94.0 /2016 [facility] HEMATOLOGY MCH 30.5 27.0 - 03/23 31.0 [facility] HEMATOLOGY Hgb 12.3 14.0 - 03/23 18.0 [facility] HEMATOLOGY Hct 37.5 42.0 - 03/23 54.0 /2016 [facility] HEMATOLOGY MCHC 32.9 32.0 - 03/23 36.0 /2016 [facility] HEMATOLOGY Platelet 41 133 - 450 03/23 [facility] HEMATOLOGY RDW 16.7 11.5 - 03/23 14.5 /2016 [facility] HEMATOLOGY WBC 6.8 3.7 - 10.4 03/23 [facility] HEMATOLOGY RBC 4.04 4.70 - 03/23 6.10 [facility] HEMATOLOGY Basophils 0.1 0.0 - 1.0 03/23 [facility] HEMATOLOGY Monocytes 3.2 2.0 - 12.0 03/23 [facility] HEMATOLOGY Eosinophils 1.3 0.0 - 4.0 03/23 [facility] HEMATOLOGY Segs 73.3 45.0 - 03/23 75.0 [facility] HEMATOLOGY Lymphocytes 22.1 20.0 - 11 MH 40.0 /2017 [facility] HEMATOLOGY Basophils # 0.0 0.0 - 0.2 03/23 [facility] HEMATOLOGY Monocytes # 0.2 0.0 - 0.8 03/23 [facility] HEMATOLOGY Eosinophils 0.1 0.0 - 0.5 03/23 # /2016 [facility] HEMATOLOGY Segs-Bands # 5.0 1.5 - 8.1 03/23 [facility] HEMATOLOGY Lymphocytes 1.5 1.0 - 5.5 03/23 [facility] ELECTROLYT AGAP 15.8 10.0 - 03/22 ES 20.0 /2016 [facility] ELECTROLYT Calcium Lvl 8.8 8.5 - 10.5 03/22 ES [facility] ELECTROLYT eGFR 26 03/22 Comment: The [facility] eGFR is calculated using the CKD-EPI formula. In most young, healthy individuals the eGFR will be >90 mL/min/1.73m2 . The eGFR declines with age. An eGFR of 60-89 may be normal in some populations, particularly the elderly, for whom the CKD-EPI formula has not been extensively validated. Use of the eGFR is not recommended in the following populations:< br/>
Paty viduals with unstable creatinine concentration s, including patients and those with serious co-morbid conditions.<b r/>
Patie nts with extremes in muscle mass or diet.

The data above are obtained from the National Kidney Disease Education Program (NKDEP) which additionally recommends that when the eGFR is used in patients with extremes of body mass index for purposes of drug dosing, the eGFR should be multiplied by the estimated BMI. ELECTROLYT Glucose Lvl 102 70 - 99 03/22 [facility] ELECTROLYT BUN 40 7 - 22 03/22 [facility] ELECTROLYT Chloride Lvl 96 95 - 109 03/22 [facility] ELECTROLYT Potassium 3.8 3.5 - 5.1 03/22 ES Lvl [facility] ELECTROLYT CO2 25 24 - 32 03/22 [facility] ELECTROLYT Sodium Lvl 133 135 - 145 03/22 [facility] ELECTROLYT Creatinine 2.60 0.50 - 03/22 ES Lvl 1.40 [facility] HEMATOLOGY Monocytes # 0.3 0.0 - 0.8 03/22 [facility] HEMATOLOGY Lymphocytes 1.2 1.0 - 5.5 03/22 MH # /2016 [facility] HEMATOLOGY Eosinophils 0.1 0.0 - 0.5 03/22 MH # /2016 [facility] HEMATOLOGY Segs-Bands # 3.7 1.5 - 8.1 03/22 [facility] HEMATOLOGY Segs 69.6 45.0 - 03/22 MH 75.0 [facility] HEMATOLOGY Lymphocytes 23.0 20.0 - 03/22 MH 40.0 /2016 [facility] HEMATOLOGY Eosinophils 1.9 0.0 - 4.0 03/22 [facility] HEMATOLOGY Monocytes 4.9 2.0 - 12.0 03/22 [facility] HEMATOLOGY Basophils 0.6 0.0 - 1.0 03/22 [facility] HEMATOLOGY MCHC 33.2 32.0 - 03/22 MH 36.0 [facility] HEMATOLOGY MCV 92.0 80.0 - 03/22 94.0 [facility] HEMATOLOGY Hgb 11.9 14.0 - 03/22 MH 18.0 [facility] MCH 30.5 27.0 - 03/22 MH 31.0 [facility] HEMATOLOGY Hct 35.7 42.0 - 03/22 MH 54.0 [facility] HEMATOLOGY MPV 8.9 7.4 - 10.4 03/22 [facility] HEMATOLOGY Platelet 58 133 - 450 03/22 [facility] HEMATOLOGY RDW 16.4 11.5 - 03/22 MH 14.5 [facility] HEMATOLOGY RBC 3.88 4.70 - 03/22 6.10 [facility] HEMATOLOGY WBC 5.3 3.7 - 10.4 03/22 [facility] ELECTROLYT AGAP 14.5 10.0 - 03/21 ES 20.0 [facility] ELECTROLYT eGFR 22 03/21 Result ES Comment: The [facility] eGFR is calculated using the CKD-EPI formula. In most young, healthy individuals the eGFR will be >90 mL/min/1.73m2 . The eGFR declines with age. An eGFR of 60-89 may be normal in some populations, particularly the elderly, for whom the CKD-EPI formula has not been extensively validated. Use of the eGFR is not recommended in the following populations:< br/>
Paty viduals with unstable creatinine concentration s, including patients and those with serious co-morbid conditions.<b r/>
Patie nts with extremes in muscle mass or diet.

The data above are obtained from the National Kidney Disease Education Program (NKDEP) which additionally recommends that when the eGFR is used in patients with extremes of body mass index for purposes of drug dosing, the eGFR should be multiplied by the estimated BMI. ELECTROLYT Creatinine 2.90 0.50 - 11 ES Lvl 1.40 /2016 [facility] ELECTROLYT BUN 44 7 - 22 03/21 ES /2016 [facility] ELECTROLYT Chloride Lvl 97 95 - 109 03/21 ES /2016 [facility] ELECTROLYT Sodium Lvl 135 135 - 145 03/21 ES [facility] ELECTROLYT Potassium 3.5 3.5 - 5.1 03/21 ES Lvl /2016 [facility] ELECTROLYT Calcium Lvl 9.0 8.5 - 10.5 03/21 ES [facility] ELECTROLYT CO2 27 24 - 32 03/21 ES [facility] ELECTROLYT Glucose Lvl 101 70 - 99 03/21 ES [facility] HEMATOLOGY Basophils # 0.0 0.0 - 0.2 03/21 [facility] HEMATOLOGY Anisocyte 1+ None Seen 03/21 *ABN* /2016 [facility] (03/21/17 3:55 AM) HEMATOLOGY Eosinophils 1.4 0.0 - 4.0 03/21 [facility] HEMATOLOGY Monocytes 4.9 2.0 - 12.0 03/21 [facility] HEMATOLOGY Lymphocytes 27.5 20.0 - 03/21 MH 40.0 /2017 [facility] HEMATOLOGY Monocytes # 0.2 0.0 - 0.8 03/21 [facility] HEMATOLOGY Lymphocytes 1.4 1.0 - 5.5 03/21 MH # /2016 [facility] HEMATOLOGY Basophils 0.6 0.0 - 1.0 03/21 [facility] HEMATOLOGY Segs-Bands # 3.3 1.5 - 8.1 03/21 [facility] HEMATOLOGY Segs 65.6 45.0 - 03/21 MH 75.0 /2016 [facility] HEMATOLOGY Eosinophils 0.1 0.0 - 0.5 03/21 MH # /2017 [facility] HEMATOLOGY PT 14.3 12.0 - 11 MH 14.7 /2017 [facility] HEMATOLOGY INR 1.11 0.85 - 03/21 MH 1.17 /2016 [facility] HEMATOLOGY Hgb 12.0 14.0 - 03/21 MH 18.0 [facility] HEMATOLOGY Hct 35.4 42.0 - 03/21 MH 54.0 [facility] HEMATOLOGY MCV 91.2 80.0 - 03/21 MH 94.0 [facility] HEMATOLOGY RBC 3.88 4.70 - 03/21 MH 6.10 [facility] HEMATOLOGY WBC 5.0 3.7 - 10.4 03/21 [facility] HEMATOLOGY RDW 16.3 11.5 - 03/21 MH 14. [facility] HEMATOLOGY Platelet 65 133 - 450 03/21 [facility] HEMATOLOGY MPV 8.8 7.4 - 10.4 03/21 [facility] HEMATOLOGY MCH 30.8 27.0 - 03/21 MH 31.0 [facility] HEMATOLOGY MCHC 33.8 32.0 - 03/21 MH 36.0 [facility] IMMUNOLOGY PAO Negative Negative 03/21 (03/21/17 3:55 AM) [facility] ELECTROLYT AGAP 16.2 10.0 - 03/20 ES 20.0 [facility] ELECTROLYT eGFR 24 03/20 Result Comment: The [facility] eGFR is calculated using the CKD-EPI formula. In most young, healthy individuals the eGFR will be >90 mL/min/1.73m2 . The eGFR declines with age. An eGFR of 60-89 may be normal in some populations, particularly the elderly, for whom the CKD-EPI formula has not been extensively validated. Use of the eGFR is not recommended in the following populations:< br/>
Paty viduals with unstable creatinine concentration s, including patients and those with serious co-morbid conditions.<b r/>
Patie nts with extremes in muscle mass or diet.

The data above are obtained from the National Kidney Disease Education Program (NKDEP) which additionally recommends that when the eGFR is used in patients with extremes of body mass index for purposes of drug dosing, the eGFR should be multiplied by the estimated BMI. ELECTROLYT Calcium Lvl 9.1 8.5 - 10.5 03/20 [facility] ELECTROLYT Glucose Lvl 95 70 - 99 03/20 [facility] ELECTROLYT BUN 43 7 - 22 03/20 [facility] ELECTROLYT Chloride Lvl 98 95 - 109 03/20 ES [facility] ELECTROLYT Potassium 3.2 3.5 - 5.1 03/20 [facility] Lv [facility] ELECTROLYT CO2 24 24 - 32 03/20 [facility] ELECTROLYT Sodium Lvl 135 135 - 145 03/20 ES [facility] ELECTROLYT Creatinine 2.70 0.50 - 03/20 ES Lvl 1.40 [facility] HEMATOLOGY PT 14.4 12.0 - 03/20 14.7 [facility] HEMATOLOGY INR 1.12 0.85 - 11 1.17 [facility] HEMATOLOGY INR 1.20 0.85 - 03/19 1.17 [facility] HEMATOLOGY PT 15.3 12.0 - 03/19 14.7 [facility] CHEM PANEL Phosphorus 2.3 2.5 - 4.5 03/18 [facility] CHEM PANEL Albumin Lvl 2.9 3.5 - 5.0 03/18 [facility] CHEM PANEL Magnesium 2.0 1.8 - 2.4 03/18 Lvl [facility] HEMATOLOGY Basophils # 0.0 0.0 - 0.2 03/18 [facility] HEMATOLOGY PTT 38.2 22.9 - 03/18 35. [facility] IMMUNOLOGY RF Qnt <10 0 - 20 03/18 [facility] HEMATOLOGY PTT 49.8 22.9 - 03/18 35.8 [facility] HEMATOLOGY PTT 33.2 22.9 - 03/18 35. [facility] HEMATOLOGY D-Dimer 3.61 03/17 [facility] Fibrinogen 447 230 - 510 03/17 Lvl [facility] Heparin Negative 1 Negative 03/17 Result Ab(HASEEB) (03/17/17 12:58 PM) Comment: is [facility] assay detects heparin antibodies of IgG isotype. Antibodies of other isotypes have been reported to cause heparin-induc ed thrombocytope neel. Therefore, if there is a strong clinical suspicion of HIT, additional study with a serotonin release assay is recommented. HEMATOLOGY Pat Od Value 0.069 03/17 [facility] HEMATOLOGY Pos CO Value 0.400 03/17 [facility] HEMATOLOGY PB Smear Mild 03/17 Path [facility] with normochrom ic, normocytic indices. Moderate thrombocyt openia. No significan t microangio pathic changes seen. Clinical and laboratory correlatio n required. CHEM PANEL Albumin Lvl 3.0 3.5 - 5.0 03/17 [facility] CHEM PANEL Phosphorus 2.4 2.5 - 4.5 03/17 [facility] CHEM PANEL Magnesium 2.3 1.8 - 2.4 03/17 Lvl [facility] URINE AND UA Protein Negative Negative 03/17 STOOL mg/dL mg/dL [facility] URINE AND UA pH 6.0 5.0 - 8.0 03/17 STOOL [facility] URINE AND UA Glucose Negative Negative 03/17 STOOL mg/dL mg/dL [facility] URINE AND UA Spec Grav 1.012 <=1.030 03/17 STOOL [facility] URINE AND UA <=1.0 0.1 - 1.0 03/17 STOOL Urobilinogen [facility] URINE AND UA Color Yellow 03/17 STOOL [facility] URINE AND UA Mucus Few /LPF None Seen 03/17 STOOL /LPF [facility] URINE AND UA WBC 1 0 - 5 03/17 STOOL [facility] URINE AND UA Sq Epi Occasional Few /LPF 03/17 STOOL /LPF [facility] URINE AND UA Leuk Est Negative Negative 03/17 STOOL (03/16/17 8:57 PM) [facility] est URINE AND UA Nitrite Negative Negative 03/17 STOOL (03/16/17 8:57 PM) [facility] est URINE AND UA Blood Negative Negative 03/17 [facility] (03/16/17 8:57 PM) [facility] URINE [facility] UA Bili Negative Negative 03/17 STOOL *NA* /2016 [facility] (03/16/17 8:57 PM) URINE AND UA Ketones Trace Negative 03/17 STOOL mg/dL mg/dL [facility] URINE AND UA Turbidity Clear Clear 03/17 STOOL (03/16/17 8:57 PM) [facility] est URINE CHEM U Prot/Creat 0.1 03/17 [facility] URINE CHEM U Eos None Seen None Seen 03/17 (03/16/17 8:57 PM) [facility] est URINE CHEM U Creatinine 137.00 03/17 [facility] URINE CHEM U Protein 14.8 03/17 [facility] URINE CHEM U Sodium 33 03/17 [facility] CARDIAC CK MB Index 1.8 0.0 - 2.5 03/16 ENZYMES [facility] CARDIAC Total CK 115 12 - 191 03/16 ENZYMES [facility] CARDIAC CK MB 2.1 0.5 - 3.6 03/16 ENZYMES [facility] CARDIAC Troponin-I 0.15 0.00 - 03/16 ENZYMES 0.40 [facility] CARDIAC BNP 255 <=100 03/16 [facility] pg/mL /2016 [facility] CHEM PANEL Procalcitoni 0.07 0.00 - 03/16 n Lvl 0.10 [facility] HEMATOLOGY Sed Rate 54 0 - 15 03/16 [facility] ELECTROLYT AGAP 15.7 10.0 - 03/11 ES 20.0 [facility] ELECTROLYT CO2 24 24 - 32 03/11 [facility] ELECTROLYT Sodium Lvl 143 135 - 145 03/11 [facility] ELECTROLYT Potassium 3.7 3.5 - 5.1 03/11 ES Lvl [facility] ELECTROLYT Chloride Lvl 107 95 - 109 03/11 [facility] ELECTROLYT eGFR 43 03/11 Comment: The [facility] eGFR is calculated using the CKD-EPI formula. In most young, healthy individuals the eGFR will be >90 mL/min/1.73m2 . The eGFR declines with age. An eGFR of 60-89 may be normal in some populations, particularly the elderly, for whom the CKD-EPI formula has not been extensively validated. Use of the eGFR is not recommended in the following populations:< br/>
Paty viduals with unstable creatinine concentration s, including patients and those with serious co-morbid conditions.<b r/>
Patie nts with extremes in muscle mass or diet.

The data above are obtained from the National Kidney Disease Education Program (NKDEP) which additionally recommends that when the eGFR is used in patients with extremes of body mass index for purposes of drug dosing, the eGFR should be multiplied by the estimated BMI. ELECTROLYT Calcium Lvl 7.9 8.5 - 10.5 03/11 ES [facility] ELECTROLYT Glucose Lvl 114 70 - 99 03/11 [facility] ELECTROLYT BUN 34 7 - 22 03/11 [facility] ELECTROLYT Creatinine 1.70 0.50 - 03/11 ES Lvl 1.40 [facility] LIPIDS VLDL 17 03/11 [facility] LIPIDS LDL 31 <=99 mg/dL 03/11 (Calculated) [facility] LIPIDS Chol 102 <=199 03/11 MH mg/dL [facility] LIPIDS Trig 85 <=149 03/11 mg/dL /2015 [facility] LIPIDS CHD Risk 1.89 4.00 - 03/11 7.30 [facility] LIPIDS HDL 54 >=61 mg/dL 03/11 [facility] CARDIAC BNP 241 <=100 03/09 [facility] pg/mL /2015 [facility] CARDIAC CK MB Index 2.0 0.0 - 2.5 03/09 MH ENZYMES [facility] CARDIAC Troponin-I 0.19 0.00 - 03/09 ENZYMES 0.40 [facility] CARDIAC CK MB 1.7 0.5 - 3.6 03/09 ENZYMES [facility] CARDIAC Total CK 84 12 - 191 03/09 ENZYMES [facility] CHEM PANEL eGFR 35 03/09 Result Comment: The [facility] eGFR is calculated using the CKD-EPI formula. In most young, healthy individuals the eGFR will be >90 mL/min/1.73m2 . The eGFR declines with age. An eGFR of 60-89 may be normal in some populations, particularly the elderly, for whom the CKD-EPI formula has not been extensively validated. Use of the eGFR is not recommended in the following populations:< br/>
Paty viduals with unstable creatinine concentration s, including patients and those with serious co-morbid conditions.<b r/>
Patie nts with extremes in muscle mass or diet.

The data above are obtained from the National Kidney Disease Education Program (NKDEP) which additionally recommends that when the eGFR is used in patients with extremes of body mass index for purposes of drug dosing, the eGFR should be multiplied by the estimated BMI. CHEM PANEL CO2 29 24 - 32 03/09 [facility] CHEM PANEL Potassium 3.8 3.5 - 5.1 03/09 Lvl [facility] CHEM PANEL Calcium Lvl 8.2 8.5 - 10.5 03/09 [facility] CHEM PANEL Chloride Lvl 104 95 - 109 03/09 [facility] CHEM PANEL Sodium Lvl 143 135 - 145 03/09 [facility] CHEM PANEL Creatinine 2.00 0.50 - 03/09 Lvl 1.40 /2015 [facility] CHEM PANEL BUN 34 7 - 22 03/09 [facility] CHEM PANEL Glucose Lvl 145 70 - 99 03/09 [facility] CHEM PANEL AGAP 13.8 10.0 - 03/09 MH 20.0 /2015 [facility] HEMATOLOGY MPV 10.1 7.4 - 10.4 03/09 [facility] HEMATOLOGY Platelet 143 133 - 450 03/09 [facility] HEMATOLOGY RDW 18.7 11.5 - 03/09 MH 14.5 /2015 [facility] HEMATOLOGY Hgb 12.4 14.0 - 03/09 MH 18.0 /2015 [facility] HEMATOLOGY MCHC 32.0 32.0 - 03/09 MH 36.0 /2015 [facility] HEMATOLOGY MCH 27.8 27.0 - 03/09 MH 31.0 [facility] HEMATOLOGY MCV 86.7 80.0 - 03/09 MH 94.0 /2015 [facility] HEMATOLOGY Hct 38.7 42.0 - 03/09 MH 54.0 /2015 [facility] HEMATOLOGY RBC 4.46 4.70 - 03/09 MH 6. [facility] HEMATOLOGY WBC 6.5 3.7 - 10.4 03/09 [facility] HEMATOLOGY Monocytes 3.9 2.0 - 12.0 03/09 [facility] HEMATOLOGY Lymphocytes 2.0 1.0 - 5.5 03/09 MH # /2015 [facility] HEMATOLOGY Segs-Bands # 4.1 1.5 - 8.1 03/09 [facility] HEMATOLOGY Basophils # 0.0 0.0 - 0.2 03/09 [facility] HEMATOLOGY Basophils 0.5 0.0 - 1.0 03/09 [facility] HEMATOLOGY Eosinophils 1.7 0.0 - 4.0 03/09 [facility] HEMATOLOGY Eosinophils 0.1 0.0 - 0.5 03/09 MH # /2015 [facility] HEMATOLOGY Monocytes # 0.3 0.0 - 0.8 03/09 [facility] HEMATOLOGY Lymphocytes 30.7 20.0 - 03/09 MH 40.0 [facility] HEMATOLOGY Segs 63.2 45.0 - 03/09 MH 75.0 /2015 [facility] URINE AND UA WBC 6 0 - 5 03/09 STOOL /2015 [facility] URINE AND UA RBC 1 0 - 2 03/09 STOOL [facility] URINE AND UA Sq Epi Occasional Few /LPF 03/09 STOOL /LPF /2015 [facility] URINE AND UA Leuk Est Small Negative 03/09 STOOL *ABN* /2015 [facility] (03/09/16 4:57 PM) URINE AND UA Nitrite Negative Negative 03/09 STOOL (03/09/16 4:57 PM) [facility] URINE AND UA <=1.0 0.1 - 1.0 03/09 STOOL Urobilinogen /2015 [facility] URINE AND UA Bili Negative Negative 03/09 STOOL *NA* /2015 [facility] (03/09/16 4:57 PM) URINE AND UA Ketones Negative Negative 03/09 STOOL mg/dL mg/dL /2015 [facility] URINE AND UA Blood Negative Negative 03/09 STOOL (03/09/16 4:57 PM) [facility] URINE AND UA Protein Negative Negative 03/09 STOOL mg/dL mg/dL [facility] URINE AND UA pH 7.0 5.0 - 8.0 03/09 STOOL [facility] URINE AND UA Glucose Negative Negative 03/09 STOOL mg/dL mg/dL [facility] URINE AND UA Turbidity Clear Clear 03/09 STOOL (03/09/16 4:57 PM) [facility] URINE AND UA Color Light Yellow Yellow 03/09 STOOL *NA* /2015 [facility] (03/09/16 4:57 PM) URINE AND UA Spec Grav 1.009 <=1.030 03/09 STOOL [facility] CARDIAC CK MB Index 1.0 0.0 - 2.5 01/17 [place] [facility] CARDIAC CK MB 0.9 0.5 - 3.6 01/17 [place] [facility] CARDIAC Troponin-I 0.17 0.00 - 01/17 [place] EN[place] 0.40 /2015 [facility] CARDIAC Total CK 91 12 - 191 01/17 [place] ELECTROLYT AGAP 12.1 10.0 - 01/17 [place] ES 20.0 /2015 [place] ELECTROLYT Potassium 4.1 3.5 - 5.1 01/17 [place] Lvl /2015 [place] ELECTROLYT Chloride Lvl 105 95 - 109 01/17 [place] ELECTROLYT eGFR 34 01/17 [facility] [place] Comment: [place] eGFR is calculated using the CKD-EPI formula. In most young, healthy individuals the eGFR will be >90 mL/min/1.73m2 . The eGFR declines with age. An eGFR of 60-89 may be normal in some populations, particularly the elderly, for whom the CKD-EPI formula has not been extensively validated. Use of the eGFR is not recommended in the following populations:< br/>
Paty viduals with unstable creatinine concentration s, including patients and those with serious co-morbid conditions.<b r/>
Patie nts with extremes in muscle mass or diet.

The data above are obtained from the National Kidney Disease Education Program (NKDEP) which additionally recommends that when the eGFR is used in patients with extremes of body mass index for purposes of drug dosing, the eGFR should be multiplied by the estimated BMI. ELECTROLYT CO2 30 24 - 32 09/10 [facility] [place] /2015 [place] ELECTROLYT Calcium Lvl 8.5 8.5 - 10.5 09/10 MH [place] ES /2015 [place] ELECTROLYT Glucose Lvl 93 70 - 99 09/10 MH [place] ELECTROLYT BUN 27 7 - 22 09/10 MH [place] /2015 [place] ELECTROLYT Creatinine 2.05 0.50 - 09/10 MH [place] Lvl 1.40 /2015 [place] Sodium Lvl 143 135 - 145 /10 MH [place] ES /2016 [place] HEMATOLOGY MCV 87.5 80.0 - 09/10 MH [place] 94.0 /2016 [place] HEMATOLOGY MCH 28.0 27.0 - 09/10 MH [place] 31.0 /2016 [place] HEMATOLOGY RDW 17.7 11.5 - /10 MH [place] 14.5 /2016 [place] HEMATOLOGY MCHC 32.0 32.0 - 09/10 MH [place] 36.0 /2016 [place] HEMATOLOGY MPV 8.8 7.4 - 10.4 09/10 MH [place] /2016 [place] HEMATOLOGY Platelet 159 133 - 450 09/10 [facility] [place] /2016 [place] HEMATOLOGY WBC 5.2 3.7 - 10.4 09/10 [facility] [place] /2016 [place] HEMATOLOGY Hct 32.9 42.0 - 09/10 MH [place] 54.0 /2016 [place] HEMATOLOGY Hgb 10.5 14.0 - 09/10 MH [place] 18.0 /2016 [place] HEMATOLOGY RBC 3.76 4.70 - 09/10 MH [place] 6.10 /2016 [place] HEMATOLOGY Monocytes 5.9 2.0 - 12.0 09/10 [facility] [place] /2016 [place] HEMATOLOGY Segs 53.3 45.0 - 09/10 MH [place] 75.0 /2016 [place] HEMATOLOGY Eosinophils 3.7 0.0 - 4.0 09/10 MH [place] /2016 [place] HEMATOLOGY Lymphocytes 36.8 20.0 - 09/10 MH [place] 40.0 /2016 [place] HEMATOLOGY Lymphocytes 1.9 1.0 - 5.5 09/10 MH [place] # /2016 [place] HEMATOLOGY Basophils 0.3 0.0 - 1.0 09/10 MH [place] /2016 [place] HEMATOLOGY Segs-Bands # 2.8 1.5 - 8.1 09/10 MH [place] /2016 [place] HEMATOLOGY Basophils # 0.0 0.0 - 0.2 09/10 MH [place] /2016 [place] HEMATOLOGY Monocytes # 0.3 0.0 - 0.8 /10 MH [place] /2016 [place] HEMATOLOGY Eosinophils 0.2 0.0 - 0.5 /10 MH [place] # /2016 [place] LIPIDS VLDL 17 /10 MH [place] /2016 [place] LIPIDS LDL 34 <=99 mg/dL 10 MH [place] (Calculated) /2015 [place] LIPIDS Trig 84 <=149 /10 MH [place] mg/dL /2015 [place] LIPIDS HDL 51 >=61 mg/dL 01/17 MH [place] /2016 [place] LIPIDS Chol 102 <=199 /10 MH [place] mg/dL /2016 [place] LIPIDS CHD Risk 2.00 4.00 - 10 MH [place] 7.30 /2015 [place] CARDIAC CK MB Index 1.3 0.0 - 2.5 /10 MH [place]ES /2016 [place] CARDIAC CK MB 1.2 0.5 - 3.6 /10 MH [place] /2016 [place] CARDIAC Troponin-I 0.16 0.00 - 10 MH [place] 0.40 /2015 [place] CARDIAC Total CK 95 12 - 191 /10 MH [place] /2016 [place] HEMATOLOGY PTT 28.0 22.9 - 09/10 MH [place] 35.8 /2016 [place] HEMATOLOGY D-Dimer 1.22 /10 MH [place] /2016 [place] CARDIAC CK MB 1.6 0.5 - 3.6 01/16 MH [place] /2016 [place] CARDIAC Troponin-I 0.18 0.00 - 01/16 MH [place] 0.40 /2015 [place] CARDIAC BNP 238 <=100 01/16 MH [place] pg/mL /2015 [place] CARDIAC Total CK 107 12 - 191 /09 MH [place] /2016 [place] CARDIAC CK MB Index 1.5 0.0 - 2.5 01/16 [place]ES /2016 [place] CHEM PANEL eGFR 35 01/16 Result [place] Comment: The [facility] eGFR is calculated using the CKD-EPI formula. In most young, healthy individuals the eGFR will be >90 mL/min/1.73m2 . The eGFR declines with age. An eGFR of 60-89 may be normal in some populations, particularly the elderly, for whom the CKD-EPI formula has not been extensively validated. Use of the eGFR is not recommended in the following populations:< br/>
Paty viduals with unstable creatinine concentration s, including patients and those with serious co-morbid conditions.<b r/>
Patie nts with extremes in muscle mass or diet.

The data above are obtained from the National Kidney Disease Education Program (NKDEP) which additionally recommends that when the eGFR is used in patients with extremes of body mass index for purposes of drug dosing, the eGFR should be multiplied by the estimated BMI. CHEM PANEL A/G Ratio 0.6 0.7 - 1.6 01/16 [place] CHEM PANEL Globulin 5.1 2.7 - 4.2 01/16 [place] CHEM PANEL B/C Ratio 13 6 - 25 01/16 [place] CHEM PANEL Alk Phos 82 39 - 136 01/16 [place] CHEM PANEL AGAP 11.9 10.0 - 01/16 MH [place] 20.0 /2015 [place] CHEM PANEL Bili Total 0.3 0.2 - 1.3 01/16 [place] CHEM PANEL AST 12 0 - 37 01/16 MH [place] CHEM PANEL ALT 14 0 - 65 01/16 [place] CHEM PANEL Albumin Lvl 3.1 3.5 - 5.0 01/16 [place] /2015 [place] CHEM PANEL BUN 27 7 - 22 01/16 [place] CHEM PANEL Glucose Lvl 109 70 - 99 01/16 [place] CHEM PANEL Total 8.2 6.4 - 8.4 01/16 [place] CHEM PANEL Calcium Lvl 8.1 8.5 - 10.5 01/16 MH [place] CHEM PANEL Creatinine 2.02 0.50 - 01/16 [place] Lvl 1.40 /2016 [place] CHEM PANEL CO2 28 24 - 32 09/ [place] /2016 [place] CHEM PANEL Chloride Lvl 106 95 - 109 09/ [place] /2016 [place] CHEM PANEL Potassium 3.9 3.5 - 5.1 09/09 [place] Lvl /2016 [place] CHEM PANEL Sodium Lvl 142 135 - 145 09/ [place] /2016 [place] HEMATOLOGY Hct 32.7 42.0 - 09/ [place] 54.0 /2015 [place] HEMATOLOGY MCV 87.5 80.0 - 09/09 [place] 94.0 /2015 [place] HEMATOLOGY MCH 28.0 27.0 - 09/ [place] 31.0 /2015 [place] HEMATOLOGY MCHC 32.0 32.0 - 09/09 [place] 36.0 /2015 [place] HEMATOLOGY RDW 17.9 11.5 - 09 [place] 14.5 /2015 [place] HEMATOLOGY Platelet 175 133 - 450 09/ [place] /2015 [place] HEMATOLOGY MPV 8.3 7.4 - 10.4 09 [place] /2015 [place] HEMATOLOGY WBC 5.5 3.7 - 10.4 09/ [place] /2015 [place] HEMATOLOGY RBC 3.73 4.70 - 09 [place] 6.10 /2015 [place] HEMATOLOGY Hgb 10.4 14.0 - 09 [place] 18.0 /2015 [place] HEMATOLOGY Lymphocytes 33.3 20.0 - 09/ [place] 40.0 /2015 [place] HEMATOLOGY Eosinophils 2.5 0.0 - 4.0 / [place] /2016 [place] HEMATOLOGY Monocytes 5.8 2.0 - 12.0 / [place] /2016 [place] HEMATOLOGY Basophils 0.3 0.0 - 1.0 09/ [place] /2016 [place] HEMATOLOGY Segs-Bands # 3.2 1.5 - 8.1 09/ [place] /2016 [place] HEMATOLOGY Lymphocytes 1.8 1.0 - 5.5 09/ [place] # /2015 [place] HEMATOLOGY Monocytes # 0.3 0.0 - 0.8 09/ [place] /2016 [place] HEMATOLOGY Eosinophils 0.1 0.0 - 0.5 09/ [place] # /2016 [place] HEMATOLOGY Basophils # 0.0 0.0 - 0.2 09/ [place] /2015 [place] HEMATOLOGY Segs 58.1 45.0 - 09/ [place] 75.0 /2015 [place] CHEM PANEL eGFR 47 05/28 Result Comment: The [facility] eGFR is calculated using the CKD-EPI formula. In most young, healthy individuals the eGFR will be >90 mL/min/1.73m2 . The eGFR declines with age. An eGFR of 60-89 may be normal in some populations, particularly the elderly, for whom the CKD-EPI formula has not been extensively validated. Use of the eGFR is not recommended in the following populations:< br/>
Paty viduals with unstable creatinine concentration s, including patients and those with serious co-morbid conditions.<b r/>
Patie nts with extremes in muscle mass or diet.

The data above are obtained from the National Kidney Disease Education Program (NKDEP) which additionally recommends that when the eGFR is used in patients with extremes of body mass index for purposes of drug dosing, the eGFR should be multiplied by the estimated BMI. CHEM PANEL ALT 12 0 - 65 05/28 [place] CHEM PANEL Albumin Lvl 3.5 3.5 - 5.0 05/28 [place] CHEM PANEL Total 7.7 6.4 - 8.4 05/28 [place] CHEM PANEL Alk Phos 76 39 - 136 05/28 [place] CHEM PANEL Bili Total 0.4 0.2 - 1.3 05/28 [place] CHEM PANEL AST 17 0 - 37 05/28 [place] CHEM PANEL Creatinine 1.60 0.50 - 05/28 [place] Lvl 1.40 [place] CHEM PANEL Sodium Lvl 138 135 - 145 05/28 [place] CHEM PANEL Potassium 4.3 3.5 - 5.1 05/28 [place] CHEM PANEL Chloride Lvl 104 95 - 109 05/28 [place] CHEM PANEL Calcium Lvl 8.5 8.5 - 10.5 05/28 [place] CHEM PANEL CO2 28 24 - 32 05/28 [place] CHEM PANEL Glucose Lvl 82 70 - 99 05/28 [place] CHEM PANEL BUN 27 7 - 22 05/28 [place] CHEM PANEL A/G Ratio 0.8 0.7 - 1.6 05/28 [place] /2016 [place] CHEM PANEL Globulin 4.2 2.0 - 4.0 05/28 [place] /2016 [place] CHEM PANEL AGAP 10.3 10.0 - 05/28 [place] 20.0 /2015 [place] CHEM PANEL B/C Ratio 17 6 - 25 05/28 [place] /2016 [place] HEMATOLOGY PTT 23.6 22.9 - 05/28 [place] 35.8 /2015 [place] HEMATOLOGY INR 1.12 0.85 - 05/28 [place] 1.17 /2015 [place] HEMATOLOGY PT 14.7 12.0 - 05/28 [place] 14.7 /2015 [place] HEMATOLOGY Platelet 72 133 - 450 05/28 [place] /2015 [place] HEMATOLOGY MPV 9.8 7.4 - 10.4 05/28 [place] /2015 [place] HEMATOLOGY RDW 18.5 11.5 - 05/28 [place] 14.5 /2015 [place] HEMATOLOGY MCHC 33.3 32.0 - 05/28 [place] 36.0 /2015 [place] HEMATOLOGY MCV 87.0 80.0 - 05/28 [place] 94.0 /2015 [place] HEMATOLOGY MCH 28.9 27.0 - 05/28 [place] 31.0 /2015 [place] HEMATOLOGY Hct 36.7 42.0 - 05/28 [place] 54.0 /2015 [place] HEMATOLOGY Hgb 12.2 14.0 - 05/28 [place] 18.0 /2015 [place] HEMATOLOGY RBC 4.22 4.70 - 05/28 [place] 6.10 /2015 [place] HEMATOLOGY WBC 5.9 3.7 - 10.4 05/28 [place] /2015 [place] HEMATOLOGY Eosinophils 0.1 0.0 - 0.5 05/28 [place] # /2015 [place] HEMATOLOGY Basophils # 0.0 0.0 - 0.2 05/28 [place] /2015 [place] HEMATOLOGY Monocytes # 0.5 0.0 - 0.8 05/28 [place] /2016 [place] HEMATOLOGY Lymphocytes 1.7 1.0 - 5.5 05/28 [place] # /2015 [place] HEMATOLOGY Segs-Bands # 3.6 1.5 - 8.1 05/28 [place] /2015 [place] HEMATOLOGY Eosinophils 2.3 0.0 - 4.0 05/28 [place] /2015 [place] HEMATOLOGY Monocytes 8.0 2.0 - 12.0 05/28 [place] /2015 [place] HEMATOLOGY Lymphocytes 28.5 20.0 - 05/28 [place] 40.0 /2015 [place] HEMATOLOGY Basophils 0.3 0.0 - 1.0 05/28 [place] /2015 [place] HEMATOLOGY Segs 60.9 45.0 - 05/28 [place] 75.0 [place] URINE AND UA Mucus None Seen None Seen 05/28 [place]OOL (05/28/15 3:44 PM) [place] URINE AND UA Bacteria Few /HPF None Seen 05/28 [place] /HPF /2015 [place] URINE AND UA RBC None Seen 0 - 2 05/28 [place] (05/28/15 3:44 PM) [place] URINE AND UA WBC >100 /HPF None Seen 05/28 [place] /HPF /2015 [place] URINE AND UA Leuk Est Large Negative 05/28 [place] *ABN* /2015 [place] (05/28/15 3:44 PM) URINE AND UA Sq Epi Rare /LPF Few /LPF 05/28 [place] /2015 [place] URINE AND UA 0.2 0.1 - 1.0 05/28 [place] Urobilinogen /2015 [place] URINE AND UA Nitrite Positive Negative 05/28 [place] STOOL *ABN* /2015 [facility] (05/28/15 3:44 PM) URINE AND UA Spec Grav 1.015 <=1.030 05/28 [place] URINE AND UA Turbidity Slight Cloudy Clear 05/28 [place] (05/28/15 3:44 PM) [place] URINE AND UA pH 7.0 5.0 - 8.0 05/28 [place] URINE AND UA Protein 30 mg/dL Negative 05/28 [place] mg/dL [place] URINE AND UA Color Yellow Yellow 05/28 [place] *NA* /2015 [place] (05/28/15 3:44 PM) URINE AND UA Glucose Negative Negative 05/28 [place] (05/28/15 3:44 PM) [place] URINE AND UA Bili Negative Negative 05/28 [place] *NA* /2015 [place] (05/28/15 3:44 PM) URINE AND UA Blood Moderate Negative 05/28 [place] *ABN* /2015 [place] (05/28/15 3:44 PM) URINE AND UA Ketones Negative Negative 05/28 [place] *NA* /2015 [place] (05/28/15 3:44 PM) HEMATOLOGY POC PT 12.2 12.0 - 12/15 MH 14.7 /2015 [facility] HEMATOLOGY POC INR 1.0 0.9 - 1.2 04/23 MH /2014 [facility] CARDIAC CK MB Index 0.9 0.0 - 2.5 04/22 MH ENZYMES /2014 [facility] CARDIAC Troponin-I 0.20 0.00 - 04/22 ENZYMES 0.40 /2014 [facility] CARDIAC CK MB 1.6 0.5 - 3.6 04/22 ENZYMES /2014 [facility] CARDIAC Total CK 176 12 - 191 04/22 MH ENZYMES /2014 [facility] CARDIAC Troponin-I 0.24 0.00 - 04/21 MH ENZYMES 0.40 /2014 [facility] CARDIAC CK MB 2.3 0.5 - 3.6 04/21 MH ENZYMES /2014 [facility] CARDIAC Total CK 133 12 - 191 04/21 MH ENZYMES /2014 [facility] CARDIAC CK MB Index 1.7 0.0 - 2.5 04/21 MH ENZYMES /2014 [facility] CARDIAC BNP 118 <=100 04/21 ENZYMES pg/mL /2014 [facility] CARDIAC CK MB 1.8 0.5 - 3.6 04/21 ENZYMES /2014 [facility] CARDIAC Troponin-I 0.24 0.00 - 04/21 ENZYMES 0.40 /2014 [facility] CARDIAC Total CK 131 12 - 191 04/21 MH ENZYMES /2014 [facility] CARDIAC CK MB Index 1.4 0.0 - 2.5 04/21 ENZYMES /2014 [facility] CHEM PANEL Phosphorus 2.2 2.5 - 4.5 04/21 [facility] CHEM PANEL Magnesium 2.0 1.8 - 2.4 04/21 Lvl /2014 [facility] CHEM PANEL Glucose Lvl 97 70 - 99 04/21 [facility] CHEM PANEL BUN 20 7 - 22 04/21 [facility] CHEM PANEL Total 6.9 6.4 - 8.4 04/21 Protein /2014 [facility] CHEM PANEL Albumin Lvl 3.1 3.5 - 5.0 04/21 [facility] CHEM PANEL ALT 18 0 - 65 04/21 [facility] CHEM PANEL Creatinine 1.70 0.50 - 04/21 MH Lvl 1.40 [facility] CHEM PANEL Chloride Lvl 109 95 - 109 04/21 [facility] CHEM PANEL Sodium Lvl 144 135 - 145 04/21 [facility] CHEM PANEL Alk Phos 73 39 - 136 04/21 [facility] CHEM PANEL Potassium 3.6 3.5 - 5.1 12/13 MH Lvl /2014 [facility] CHEM PANEL AST 24 0 - 37 04/21 [facility] CHEM PANEL eGFR 43 04/21 Comment: The [facility] eGFR is calculated using the CKD-EPI formula. In most young, healthy individuals the eGFR will be >90 mL/min/1.73m2 . The eGFR declines with age. An eGFR of 60-89 may be normal in some populations, particularly the elderly, for whom the CKD-EPI formula has not been extensively validated. Use of the eGFR is not recommended in the following populations:< br/>
Paty viduals with unstable creatinine concentration s, including patients and those with serious co-morbid conditions.<b r/>
Patie nts with extremes in muscle mass or diet.

The data above are obtained from the National Kidney Disease Education Program (NKDEP) which additionally recommends that when the eGFR is used in patients with extremes of body mass index for purposes of drug dosing, the eGFR should be multiplied by the estimated BMI. CHEM PANEL Calcium Lvl 8.2 8.5 - 10.5 04/21 [facility] CHEM PANEL CO2 27 24 - 32 04/21 [facility] CHEM PANEL Bili Total 0.5 0.2 - 1.3 04/21 [facility] CHEM PANEL B/C Ratio 12 6 - 25 04/21 [facility] CHEM PANEL Globulin 3.8 2.0 - 4.0 04/21 [facility] CHEM PANEL A/G Ratio 0.8 0.7 - 1.6 04/21 [facility] CHEM PANEL AGAP 11.6 10.0 - 04/21 MH 20.0 [facility] HEMATOLOGY MCV 88.7 80.0 - 04/21 MH 94.0 /2014 [facility] HEMATOLOGY RBC 3.94 4.70 - 04/21 MH 6.10 /2014 [facility] HEMATOLOGY Hgb 11.1 14.0 - 04/21 MH 18.0 [facility] HEMATOLOGY WBC 4.8 3.7 - 10.4 04/21 [facility] HEMATOLOGY Hct 35.0 42.0 - 04/21 MH 54.0 /2014 [facility] HEMATOLOGY Platelet 85 133 - 450 04/21 [facility] HEMATOLOGY MCH 28.3 27.0 - 04/21 MH 31.0 /2014 [facility] HEMATOLOGY MCHC 31.9 32.0 - 04/21 MH 36.0 /2014 [facility] HEMATOLOGY RDW 17.7 11.5 - 04/21 MH 14.5 /2014 [facility] HEMATOLOGY MPV 10.2 7.4 - 10.4 04/21 /2014 [facility] HEMATOLOGY Lymphocytes 29.8 20.0 - 04/21 MH 40.0 /2014 [facility] HEMATOLOGY Monocytes 5.3 2.0 - 12.0 04/21 [facility] HEMATOLOGY Eosinophils 3.2 0.0 - 4.0 04/21 /2014 [facility] HEMATOLOGY Segs 61.4 45.0 - 04/21 MH 75.0 /2014 [facility] HEMATOLOGY Segs-Bands # 3.0 1.5 - 8.1 04/21 [facility] HEMATOLOGY Lymphocytes 1.4 1.0 - 5.5 04/21 # /2014 [facility] HEMATOLOGY Basophils 0.3 0.0 - 1.0 04/21 [facility] HEMATOLOGY Basophils # 0.0 0.0 - 0.2 04/21 [facility] HEMATOLOGY Monocytes # 0.3 0.0 - 0.8 04/21 [facility] HEMATOLOGY Eosinophils 0.2 0.0 - 0.5 04/21 # /2014 [facility] LIPIDS CHD Risk 2.04 4.00 - 04/21 7.30 /2014 [facility] LIPIDS VLDL 14 04/21 [facility] LIPIDS LDL 33 <=99 mg/dL 04/21 (Calculated) [facility] LIPIDS Chol 92 <=199 04/21 mg/dL /2014 [facility] LIPIDS HDL 45 >=61 mg/dL 04/21 [facility] LIPIDS Trig 70 <=149 04/21 mg/dL /2014 [facility] SPECIAL Hgb A1C 5.7 <=5.6 % 04/21 CHEMISTRY [facility] CARDIAC Total CK 66 12 - 191 02/02 MH ENZYMES [facility] CHEM PANEL eGFR 38 02/02 Result Comment: The [facility] eGFR is calculated using the CKD-EPI formula. In most young, healthy individuals the eGFR will be >90 mL/min/1.73m2 . The eGFR declines with age. An eGFR of 60-89 may be normal in some populations, particularly the elderly, for whom the CKD-EPI formula has not been extensively validated. Use of the eGFR is not recommended in the following populations:< br/>
Paty viduals with unstable creatinine concentration s, including patients and those with serious co-morbid conditions.<b r/>
Patie nts with extremes in muscle mass or diet.

The data above are obtained from the National Kidney Disease Education Program (NKDEP) which additionally recommends that when the eGFR is used in patients with extremes of body mass index for purposes of drug dosing, the eGFR should be multiplied by the estimated BMI. CHEM PANEL AST 20 0 - 37 02/02 [facility] CHEM PANEL Alk Phos 112 39 - 136 02/02 [place] CHEM PANEL ALT 16 0 - 65 02/02 [facility] CHEM PANEL Bili Total 0.7 0.2 - 1.3 02/02 [facility] CHEM PANEL Potassium 3.4 3.5 - 5.1 02/02 L[facility] [place] CHEM PANEL Chloride Lvl 105 95 - 109 02/02 [facility] CHEM PANEL Albumin Lvl 3.4 3.5 - 5.0 02/02 [facility] CHEM PANEL Total 8.3 6.4 - 8.4 02/02 [place] CHEM PANEL CO2 25 24 - 32 02/02 [place] CHEM PANEL Calcium Lvl 8.7 8.5 - 10.5 02/02 [facility] CHEM PANEL BUN 13 7 - 22 02/02 [place] CHEM PANEL Sodium Lvl 137 135 - 145 02/02 [facility] CHEM PANEL Creatinine 1.9 0.5 - 1.4 02/02 Lvl [facility] CHEM PANEL Glucose Lvl 111 70 - 99 02/02 [facility] CHEM PANEL A/G Ratio 0.7 0.7 - 1.6 02/02 [facility] CHEM PANEL B/C Ratio 7 6 - 25 02/02 [facility] CHEM PANEL Globulin 4.9 2.0 - 4.0 02/02 [facility] CHEM PANEL AGAP 10.4 10.0 - 02/02 MH 20.0 [facility] HEMATOLOGY RDW 16.8 11.5 - 02/02 14.5 [facility] HEMATOLOGY Platelet 139 133 - 450 02/02 [facility] HEMATOLOGY MPV 8.2 7.4 - 10.4 02/02 [facility] HEMATOLOGY WBC 5.1 3.7 - 10.4 02/02 [facility] HEMATOLOGY Hgb 11.3 14.0 - 02/02 MH 18.0 /2014 [facility] HEMATOLOGY Hct 36.3 42.0 - 02/02 MH 54.0 /2014 [facility] HEMATOLOGY MCHC 31.2 32.0 - 02/02 MH 36.0 /2014 [facility] HEMATOLOGY RBC 4.04 4.70 - 02/02 MH 6.10 /2014 [facility] HEMATOLOGY MCV 89.8 80.0 - 02/02 MH 94.0 /2014 [facility] MCH 28.0 27.0 - 02/02 MH 31.0 /2014 [facility] HEMATOLOGY Segs-Bands # 3.3 1.5 - 8.1 02/02 /2014 [facility] HEMATOLOGY Basophils 0.6 0.0 - 1.0 02/02 [facility] HEMATOLOGY Monocytes # 0.4 0.0 - 0.8 02/02 [facility] HEMATOLOGY Basophils # 0.0 0.0 - 0.2 02/02 /2014 [facility] HEMATOLOGY Segs 65.9 45.0 - 02/02 MH 75.0 /2014 [facility] HEMATOLOGY Eosinophils 3.3 0.0 - 4.0 02/02 [facility] HEMATOLOGY Monocytes 7.0 2.0 - 12.0 02/02 [facility] HEMATOLOGY Lymphocytes 1.2 1.0 - 5.5 02/02 MH # /2014 [facility] HEMATOLOGY Eosinophils 0.2 0.0 - 0.5 02/02 /2014 [facility] Lymphocytes 23.2 20.0 - 02/02 40.0 /2014 [facility] CARDIAC BNP 185 <=100 07/07 <sup>3</sup>I [place] ENZYMES pg/mL /2014 [facility]ive [facility] Data: Elevated results are in line with increasing severity of
con gestive heart failure. Minor elevations between 100 and 300
may be seen with Myocardial Ischemia, Sodium retaining drugs,
an d compensated/t reated heart failure. HEMATOLOGY INR 1.01 0.85 - 07/07 <sup>4</sup>I [place] 1.17 /2014 nterpret[facility] Data: RECOMMENDED RANGES FOR PROTIME INR:
2.0-3.0 for most medical and surgical thromboemboli c states.
2.5-3.5 for artificial heart valves and recurrent embolism.<br/ >
INR SHOULD BE USED ONLY FOR PATIENTS ON STABLE ANTICOAGULANT THERAPY. HEMATOLOGY PTT 27.2 22.9 - 07/07 <sup>5</sup>I [place] 35.8 /2014 [facility]pret[facility] Data: Heparin Therapeutic Range: 57 - 92 Seconds HEMATOLOGY PT 13.3 12.0 - 07/07 [place] 14.7 /2014 [facility] CARDIAC CK MB Index 0.8 0.0 - 2.5 07/07 [place] /2014 [facility] CARDIAC Total CK 121 12 - 191 07/07 [place] /2014 [facility] CARDIAC CK MB 1.0 0.5 - 3.6 07/07 [place] /2014 [facility] CARDIAC Troponin-I 0.28 0.00 - 07/07 [place] 0.40 /2014 [place] CHEM PANEL eGFR 34 07/07 <sup>1</sup>R [place] Comment: The eGFR is calculated using the CKD-EPI formula. In most young, healthy individuals the eGFR will be >90 mL/min/1.73m2 . The eGFR declines with age. An eGFR of 60-89 may be normal in some populations, particularly the elderly, for whom the CKD-EPI formula has not been extensively validated. Use of the eGFR is not recommended in the following populations:& lt;br/>
I ndividuals with unstable creatinine concentration s, including patients and those with serious co-morbid conditions.<b r/>
Patie nts with extremes in muscle mass or diet.

The data above are obtained from the National Kidney Disease Education Program (NKDEP) which additionally recommends that when the eGFR is used in patients with extremes of body mass index for purposes of drug dosing, the eGFR should be multiplied by the estimated BMI. CHEM PANEL Chloride Lvl 106 95 - 109 07/07 [place] CHEM PANEL CO2 30 24 - 32 07/07 [place] CHEM PANEL Alk Phos 77 39 - 136 07/07 [place] CHEM PANEL Albumin Lvl 3.7 3.5 - 5.0 07/07 [place] CHEM PANEL AST 18 0 - 37 07/07 [place] CHEM PANEL ALT 18 0 - 65 07/07 [place] CHEM PANEL Calcium Lvl 8.5 8.5 - 10.5 07/07 [place] CHEM PANEL Total 8.0 6.4 - 8.4 07/07 [place] CHEM PANEL AGAP 10.1 10.0 - 07/07 [place] 20.0 [place] CHEM PANEL Bili Total 0.4 0.2 - 1.3 07/07 [place] CHEM PANEL Globulin 4.3 2.0 - 4.0 07/07 [place] CHEM PANEL B/C Ratio 21 6 - 25 07/07 [place] CHEM PANEL A/G Ratio 0.9 0.7 - 1.6 07/07 [place] CHEM PANEL Glucose Lvl 124 70 - 99 07/07 <sup>2</sup>I [place]terpretive [place] Data: Adult reference range values reflect the clinical guidelines
of the [place] [employer]. CHEM PANEL BUN 44 7 - 22 07/07 [place] CHEM PANEL Sodium Lvl 142 135 - 145 07/07 [place] CHEM PANEL Creatinine 2.1 0.5 - 1.4 07/07 [place] CHEM PANEL Potassium 4.1 3.5 - 5.1 07/07 [place] HEMATOLOGY Monocytes # 0.4 0.0 - 0.8 07/07 [place] HEMATOLOGY Eosinophils 0.2 0.0 - 0.5 07/07 [place] # /2014 [place] HEMATOLOGY Basophils # 0.0 0.0 - 0.2 07/07 [place] HEMATOLOGY Monocytes 6.4 2.0 - 12.0 07/07 [place] HEMATOLOGY Eosinophils 2.6 0.0 - 4.0 07/07 [place] /2014 [place] HEMATOLOGY Basophils 0.3 0.0 - 1.0 07/07 [place] HEMATOLOGY Segs-Bands # 4.5 1.5 - 8.1 07/07 [place] /2014 [place] HEMATOLOGY Lymphocytes 1.5 1.0 - 5.5 07/07 [place] # /2014 [place] HEMATOLOGY Segs 68.3 45.0 - 07/07 [place] 75.0 [place] HEMATOLOGY Lymphocytes 22.4 20.0 - 07/07 [place] 40.0 /2014 [place] HEMATOLOGY Hct 33.7 42.0 - 07/07 [place] 54.0 [place] HEMATOLOGY MCHC 35.8 32.0 - 07/07 [place] 36.0 /2014 [facility] HEMATOLOGY MCV 80.3 80.0 - 07/07 [place] 94.0 /2014 [facility] HEMATOLOGY MCH 28.7 27.0 - 07/07 [place] 31.0 /2014 [facility] HEMATOLOGY Platelet 105 133 - 450 07/07 MH [place] /2014 [facility] HEMATOLOGY MPV 10.1 7.4 - 10.4 07/07 [place] /2014 [facility] HEMATOLOGY RDW 18.6 11.5 - 07/07 [place] 14.5 /2014 [facility] HEMATOLOGY RBC 4.19 4.70 - 07/07 [place] 6.10 /2014 [facility] HEMATOLOGY Hgb 12.0 14.0 - 07/07 [place] 18.0 /2014 [facility] HEMATOLOGY WBC 6.5 3.7 - 10.4 07/07 [place] /2014 [facility] CHEM PANEL eGFR 34 04/02 <sup>1</sup>R esult [facility] Comment: The eGFR is calculated using the CKD-EPI formula. In most young, healthy individuals the eGFR will be >90 mL/min/1.73m2 . The eGFR declines with age. An eGFR of 60-89 may be normal in some populations, particularly the elderly, for whom the CKD-EPI formula has not been extensively validated. Use of the eGFR is not recommended in the following populations:& lt;br/>
I ndividuals with unstable creatinine concentration s, including patients and those with serious co-morbid conditions.<b r/>
Patie nts with extremes in muscle mass or diet.

The data above are obtained from the National Kidney Disease Education Program (NKDEP) which additionally recommends that when the eGFR is used in patients with extremes of body mass index for purposes of drug dosing, the eGFR should be multiplied by the estimated BMI. CHEM PANEL POC Carbon 24 24 - 32 04/02 MH Dioxide [facility] CHEM PANEL POC Chloride 102 95 - 109 04/02 [facility] CHEM PANEL POC 4.2 3.5 - 5.1 04/02 Potassium [facility] CHEM PANEL POC Ion Ca 1.24 1.05 - 04/02 MH 1.25 /2013 [facility] CHEM PANEL POC Sodium 142 135 - 145 04/02 [facility] CHEM PANEL POC 2.1 0.5 - 1.4 04/02 Creatinine [facility] CHEM PANEL POC 11.2 14.0 - 04/02 Hemoglobin 18.0 [facility] CHEM PANEL POC BUN 28 7 - 22 04/02 [facility] CHEM PANEL POC Glucose 101 70 - 99 04/02 [facility] CHEM PANEL POC AGAP 21.0 10.0 - 04/02 MH 20.0 [facility] CHEM PANEL POC 33.0 42.0 - 04/02 Hematocrit 54.0 [facility] BLOOD BANK ABO/Rh AB POS 03/30 RESULTS /2013 [facility] BLOOD BANK Antibody Negative 03/30 RESULTS Scrn (03/30/14 11:25 AM) [facility] BLOOD BANK RBC product Product available 03/30 RESULTS (03/30/14 11:25 AM) [facility] ELECTROLYT AGAP 10.7 10.0 - 03/30 ES 20.0 [facility] ELECTROLYT eGFR 34 03/30 <sup>2</sup>R MH esult [facility] Comment: The eGFR is calculated using the CKD-EPI formula. In most young, healthy individuals the eGFR will be >90 mL/min/1.73m2 . The eGFR declines with age. An eGFR of 60-89 may be normal in some populations, particularly the elderly, for whom the CKD-EPI formula has not been extensively validated. Use of the eGFR is not recommended in the following populations:& lt;br/>
I ndividuals with unstable creatinine concentration s, including patients and those with serious co-morbid conditions.<b r/>
Patie nts with extremes in muscle mass or diet.

The data above are obtained from the National Kidney Disease Education Program (NKDEP) which additionally recommends that when the eGFR is used in patients with extremes of body mass index for purposes of drug dosing, the eGFR should be multiplied by the estimated BMI. ELECTROLYT Sodium Lvl 143 135 - 145 03/30 ES [facility] ELECTROLYT Creatinine 2.1 0.5 - 1.4 03/30 ES Lvl [facility] ELECTROLYT BUN 34 7 - 22 03/30 ES [facility] ELECTROLYT Potassium 3.7 3.5 - 5.1 03/30 ES Lvl [facility] ELECTROLYT CO2 30 24 - 32 03/30 ES [facility] ELECTROLYT Chloride Lvl 106 95 - 109 03/30 ES [facility] ELECTROLYT Calcium Lvl 8.6 8.5 - 10.5 03/30 ES /2013 [facility] ELECTROLYT Glucose Lvl 88 70 - 99 03/30 <sup>3</sup>I ES nterpretive [facility] Data: Adult reference range values reflect the clinical guidelines
of the [place] [employer]. HEMATOLOGY PTT 27.7 22.9 - 03/30 <sup>5</sup>I 35.8 /2013 nterpretive [facility] Data: Heparin Therapeutic Range: 57 - 92 Second[place] HEMATOLOGY RBC 3.57 4.70 - 03/30 6.10 /2013 [facility] HEMATOLOGY WBC 4.9 3.7 - 10.4 03/30 [facility] HEMATOLOGY Hct 30.9 42.0 - 03/30 54.0 /2013 [facility] HEMATOLOGY Hgb 10.1 14.0 - 03/30 18.0 [facility] HEMATOLOGY MCH 28.2 27.0 - 03/30 31.0 /2013 [facility] HEMATOLOGY MCV 86.5 80.0 - 03/30 94.0 /2013 [facility] HEMATOLOGY MCHC 32.6 32.0 - 03/30 36.0 /2013 [facility] HEMATOLOGY RDW 18.3 11.5 - 03/30 14.5 /2013 [facility] HEMATOLOGY MPV 9.1 7.4 - 10.4 03/30 [facility] HEMATOLOGY Platelet 122 133 - 450 03/30 [facility] HEMATOLOGY Eosinophils 3.5 0.0 - 4.0 03/30 [facility] HEMATOLOGY Monocytes 5.1 2.0 - 12.0 03/30 [facility] HEMATOLOGY Lymphocytes 1.2 1.0 - 5.5 03/30 MH # /2013 [facility] HEMATOLOGY Segs-Bands # 3.3 1.5 - 8.1 03/30 [facility] HEMATOLOGY Eosinophils 0.2 0.0 - 0.5 03/30 # /2013 [facility] HEMATOLOGY Lymphocytes 23.7 20.0 - 03/30 40.0 /2013 [facility] HEMATOLOGY Segs 67.4 45.0 - 03/30 75.0 /2013 [facility] HEMATOLOGY Basophils 0.3 0.0 - 1.0 03/30 [facility] HEMATOLOGY Monocytes # 0.3 0.0 - 0.8 03/30 [facility] HEMATOLOGY Basophils # 0.0 0.0 - 0.2 03/30 [facility] HEMATOLOGY Plt Morph Normal 03/30 (03/30/14 11:25 AM) [facility] HEMATOLOGY RBC Morph Normal 03/30 (03/30/14 11:25 AM) [facility] HEMATOLOGY INR 1.08 0.85 - 03/30 <sup>4</sup>I 1.17 nterpretive [facility] Data: RECOMMENDED RANGES FOR PROTIME INR:
2.0-3.0 for most medical and surgical thromboemboli c states.
2.5-3.5 for artificial heart valves and recurrent embolism.<br/ >
INR SHOULD BE USED ONLY FOR PATIENTS ON STABLE ANTICOAGULANT THERAPY. HEMATOLOGY PT 14.1 12.0 - 03/30 14.7 [facility] ELECTROLYT AGAP 10.4 10.0 - 03/05 ES 20.0 [facility] ELECTROLYT eGFR 38 03/05 <sup>1</sup>R [facility] Comment: The eGFR is calculated using the CKD-EPI formula. In most young, healthy individuals the eGFR will be >90 mL/min/1.73m2 . The eGFR declines with age. An eGFR of 60-89 may be normal in some populations, particularly the elderly, for whom the CKD-EPI formula has not been extensively validated. Use of the eGFR is not recommended in the following populations:& lt;br/>
I ndividuals with unstable creatinine concentration s, including patients and those with serious co-morbid conditions.<b r/>
Patie nts with extremes in muscle mass or diet.

The data above are obtained from the National Kidney Disease Education Program (NKDEP) which additionally recommends that when the eGFR is used in patients with extremes of body mass index for purposes of drug dosing, the eGFR should be multiplied by the estimated BMI. ELECTROLYT CO2 31 24 - 32 03/05 [facility] ELECTROLYT Calcium Lvl 8.4 8.5 - 10.5 03/05 [facility] ELECTROLYT Sodium Lvl 140 135 - 145 03/05 [facility] ELECTROLYT Potassium 3.4 3.5 - 5.1 03/05 ES Lvl [facility] ELECTROLYT Chloride Lvl 102 95 - 109 03/05 ES [facility] ELECTROLYT BUN 13 7 - 22 03/05 ES [facility] ELECTROLYT Creatinine 1.9 0.5 - 1.4 03/05 ES Lvl /2013 [facility] ELECTROLYT Glucose Lvl 80 70 - 99 03/05 <sup>4</sup>I ES nterpretive [facility] Data: Adult reference range values reflect the clinical guidelines
of the [place] [employer]. HEMATOLOGY Monocytes 6.9 2.0 - 12.0 03/05 [facility] HEMATOLOGY Basophils 0.8 0.0 - 1.0 03/05 [facility] HEMATOLOGY Eosinophils 3.8 0.0 - 4.0 03/05 [facility] HEMATOLOGY Monocytes # 0.4 0.0 - 0.8 03/05 [facility] HEMATOLOGY Eosinophils 0.2 0.0 - 0.5 03/05 # /2013 [facility] HEMATOLOGY Lymphocytes 23.4 20.0 - 03/05 40.0 /2013 [facility] HEMATOLOGY Segs 65.1 45.0 - 03/05 75.0 /2013 [facility] HEMATOLOGY Lymphocytes 1.3 1.0 - 5.5 03/05 MH # /2013 [facility] HEMATOLOGY Segs-Bands # 3.7 1.5 - 8.1 03/05 [facility] HEMATOLOGY MCHC 32.3 32.0 - 03/05 36.0 /2013 [facility] HEMATOLOGY RDW 16.7 11.5 - 03/05 14.5 /2013 [facility] HEMATOLOGY Platelet 93 133 - 450 03/05 [facility] HEMATOLOGY MPV 9.2 7.4 - 10.4 03/05 [facility] HEMATOLOGY MCH 29.2 27.0 - 03/05 31.0 /2013 [facility] HEMATOLOGY WBC 5.7 3.7 - 10.4 03/05 [facility] HEMATOLOGY MCV 90.6 80.0 - 03/05 94.0 /2013 [facility] HEMATOLOGY Hct 34.5 42.0 - 03/05 54.0 /2013 [facility] HEMATOLOGY RBC 3.81 4.70 - 03/05 6.10 [facility] HEMATOLOGY Hgb 11.1 14.0 - 03/05 18.0 /2013 [facility] IMMUNOLOGY SS-B (La) Ab <0.2 <=0.9 AI 03/04 [facility] IMMUNOLOGY SS-A (Ro) Ab <0.2 <=0.9 AI 03/04 [facility] IMMUNOLOGY DNA Ab (DS) Negative Negative 03/04 (03/04/14 2:39 PM) [facility] IMMUNOLOGY Sm Ab <0.2 <=0.9 AI 03/04 [facility] IMMUNOLOGY J[employer]IOR [employer] DES[employer]ER Ab <0.2 <=0.9 AI 03/04 [facility] IMMUNOLOGY PAO Titer 1:40 Negative 03/04 *ABN* [facility] (03/04/14 2:39 PM) IMMUNOLOGY PAO Interp Pattern 03/04 appears [facility] speckled IMMUNOLOGY RF Qnt <10 0 - 20 03/04 [facility] IMMUNOLOGY PAO Positive Negative 03/04 *ABN* [facility] (03/04/14 2:39 PM) SPECIAL [place] 19 8 - 52 03/04 CHEMISTRY [facility] THYROID TSH 4.580 0.360 - 03/04 PANEL 3.740 [facility] CHEM PANEL eGFR 44 03/04 <sup>2</sup>R esult [facility] Comment: The eGFR is calculated using the CKD-EPI formula. In most young, healthy individuals the eGFR will be >90 mL/min/1.73m2 . The eGFR declines with age. An eGFR of 60-89 may be normal in some populations, particularly the elderly, for whom the CKD-EPI formula has not been extensively validated. Use of the eGFR is not recommended in the following populations:& lt;br/>
I ndividuals with unstable creatinine concentration s, including patients and those with serious co-morbid conditions.<b r/>
Patie nts with extremes in muscle mass or diet.

The data above are obtained from the National Kidney Disease Education Program (NKDEP) which additionally recommends that when the eGFR is used in patients with extremes of body mass index for purposes of drug dosing, the eGFR should be multiplied by the estimated BMI. CHEM PANEL Calcium Lvl 8.3 8.5 - 10.5 03/04 [facility] CHEM PANEL Sodium Lvl 141 135 - 145 03/04 [facility] CHEM PANEL Potassium 3.5 3.5 - 5.1 03/04 Lvl [facility] CHEM PANEL Chloride Lvl 105 95 - 109 03/04 [facility] CHEM PANEL CO2 29 24 - 32 03/04 [facility] CHEM PANEL Creatinine 1.7 0.5 - 1.4 03/04 Lvl /2013 [facility] CHEM PANEL BUN 12 7 - 22 03/04 [facility] CHEM PANEL Glucose Lvl 84 70 - 99 03/04 <sup>5</sup>I nterpretive [facility] Data: Adult reference range values reflect the clinical guidelines
of the [place] [employer]. CHEM PANEL AGAP 10.5 10.0 - 03/04 20.0 [facility] HEMATOLOGY Lymphocytes 1.4 1.0 - 5.5 03/04 MH # /2013 [facility] HEMATOLOGY Segs-Bands # 4.3 1.5 - 8.1 03/04 [facility] HEMATOLOGY Basophils 0.7 0.0 - 1.0 03/04 [facility] HEMATOLOGY Eosinophils 4.0 0.0 - 4.0 03/04 [facility] HEMATOLOGY Eosinophils 0.3 0.0 - 0.5 03/04 # /2013 [facility] HEMATOLOGY Monocytes # 0.4 0.0 - 0.8 03/04 [facility] HEMATOLOGY Monocytes 5.7 2.0 - 12.0 03/04 [facility] HEMATOLOGY Lymphocytes 22.2 20.0 - 03/04 40.0 [facility] HEMATOLOGY Segs 67.4 45.0 - 03/04 75.0 [facility] HEMATOLOGY Hgb 10.4 14.0 - 03/04 18.0 [facility] HEMATOLOGY RBC 3.50 4.70 - 03/04 6.10 [facility] HEMATOLOGY WBC 6.3 3.7 - 10.4 03/04 [facility] HEMATOLOGY MCHC 32.9 32.0 - 03/04 36.0 /2013 [facility] HEMATOLOGY Platelet 83 133 - 450 03/04 [facility] HEMATOLOGY RDW 16.4 11.5 - 03/04 14.5 /2013 [facility] HEMATOLOGY MPV 8.8 7.4 - 10.4 03/04 [facility] HEMATOLOGY MCH 29.5 27.0 - 03/04 31.0 [facility] HEMATOLOGY MCV 89.7 80.0 - 03/04 94.0 /2013 [facility] HEMATOLOGY Hct 31.4 42.0 - 03/04 54.0 /2013 [facility] CHEM PANEL eGFR 44 03/03 <sup>3</sup>R esult [facility] Comment: The eGFR is calculated using the CKD-EPI formula. In most young, healthy individuals the eGFR will be >90 mL/min/1.73m2 . The eGFR declines with age. An eGFR of 60-89 may be normal in some populations, particularly the elderly, for whom the CKD-EPI formula has not been extensively validated. Use of the eGFR is not recommended in the following populations:& lt;br/>
I ndividuals with unstable creatinine concentration s, including patients and those with serious co-morbid conditions.<b r/>
Patie nts with extremes in muscle mass or diet.

The data above are obtained from the National Kidney Disease Education Program (NKDEP) which additionally recommends that when the eGFR is used in patients with extremes of body mass index for purposes of drug dosing, the eGFR should be multiplied by the estimated BMI. CHEM PANEL CO2 30 24 - 32 03/03 [facility] CHEM PANEL Calcium Lvl 8.5 8.5 - 10.5 03/03 [facility] CHEM PANEL Creatinine 1.7 0.5 - 1.4 03/03 [facility] CHEM PANEL BUN 13 7 - 22 03/03 [facility] CHEM PANEL Glucose Lvl 90 70 - 99 03/03 <sup>6</sup>I nterpretive [facility] Data: Adult reference range values reflect the clinical guidelines
of the [place] [employer]. CHEM PANEL Sodium Lvl 146 135 - 145 03/03 [facility] CHEM PANEL Potassium 3.6 3.5 - 5.1 03/03 [facility] CHEM PANEL Chloride Lvl 109 95 - 109 03/03 [facility] CHEM PANEL AGAP 10.6 10.0 - 03/03 MH 20.0 [facility] HEMATOLOGY MPV 9.3 7.4 - 10.4 03/03 [facility] HEMATOLOGY RBC 3.54 4.70 - 03/03 MH 6.10 [facility] HEMATOLOGY WBC 6.2 3.7 - 10.4 03/03 [facility] HEMATOLOGY Hgb 10.4 14.0 - 03/03 MH 18.0 [facility] HEMATOLOGY Hct 32.0 42.0 - 03/03 MH 54.0 [facility] HEMATOLOGY MCV 90.5 80.0 - 03/03 MH 94.0 [facility] HEMATOLOGY MCH 29.4 27.0 - 03/03 31.0 /2013 [facility] HEMATOLOGY RDW 17.2 11.5 - 03/03 14.5 [facility] HEMATOLOGY MCHC 32.5 32.0 - 03/03 36.0 /2013 [facility] HEMATOLOGY Platelet 100 133 - 450 03/03 [facility] HEMATOLOGY Basophils # 0.0 0.0 - 0.2 03/03 [facility] HEMATOLOGY Monocytes # 0.3 0.0 - 0.8 03/03 [facility] HEMATOLOGY Lymphocytes 1.3 1.0 - 5.5 03/03 [facility] HEMATOLOGY Segs-Bands # 4.2 1.5 - 8.1 03/03 [facility] HEMATOLOGY Eosinophils 0.3 0.0 - 0.5 03/03 [facility] HEMATOLOGY Basophils 0.3 0.0 - 1.0 03/03 [facility] HEMATOLOGY Eosinophils 5.4 0.0 - 4.0 03/03 [facility] HEMATOLOGY Monocytes 5.2 2.0 - 12.0 03/03 [facility] HEMATOLOGY Lymphocytes 20.6 20.0 - 03/03 40.0 [facility] HEMATOLOGY Segs 68.5 45.0 - 03/03 75.0 [facility] HEMATOLOGY Basophils # 0.0 0.0 - 0.2 03/02 [facility] ANEMIA TIBC 252 228 - 428 03/01 STUDY [facility] ANEMIA Iron 44 45 - 160 03/01 [facility] ANEMIA UIBC 208 110 - 370 03/01 STUDY [facility] ANEMIA % [place] 17 12 - 57 03/01 [facility] ANEMIA Ferritin Lvl 89 22 - 275 03/01 [facility] CARDIAC BNP 412 <=100 03/01 <sup>7</sup>I ENZYMES pg/mL /2013 nterpretive [facility] Data: Elevated results are in line with increasing severity of
con gestive heart failure. Minor elevations between 100 and 300
may be seen with Myocardial Ischemia, Sodium retaining drugs,
an d compensated/t reated heart failure. CHEM PANEL Magnesium 2.0 1.8 - 2.4 03/01 Lv [facility] CHEM PANEL Magnesium 1.7 1.8 - 2.4 02/28 Lvl [facility] HEMATOLOGY Basophils # 0.0 0.0 - 0.2 02/28 [facility] CHEM PANEL Magnesium 1.4 1.8 - 2.4 02/27 Lvl /2013 [facility] LIPIDS CHD Risk 1.89 4.00 - 02/27 7.30 /2013 [facility] LIPIDS LDL 23 <=99 mg/dL 02/27 (Calculated) [facility] LIPIDS HDL 37 >=61 mg/dL 02/27 [facility] LIPIDS Chol 70 <=199 02/27 mg/dL [facility] LIPIDS Trig 50 <=149 02/27 mg/dL [facility] LIPIDS VLDL 10 02/27 [facility] VIRAL - Influ B Negative 12 Negative 02/26 <sup>12</sup> SEROLOGY (02/26/14 6:00 PM) Interpretive [facility] Data: Influenza A&B Antigen:
Due to the low sensitivity of this test a negative result does not exclude influenza virus infection. A diagnosis of influenza should be considered based on a patient's clinical presentation and empiric antiviral treatment should be considered, if indicated. If more conclusive testing is desired, follow-up confirmatory testing with either viral culture or PCR is warranted. VIRAL - Influ A Negative Negative 02/26 SEROLOGY (02/26/14 6:00 PM) [place] B[facility] pneumo Negative Negative 02/26 - SEROLOGY Ag (02/26/14 5:25 PM) /2013 [facility] CARDIAC Troponin-I 0.46 0.00 - 02/26 ENZYMES 0.40 /2013 [facility] CARDIAC Total CK 74 12 - 191 02/26 MH ENZYMES [facility] CARDIAC Troponin-I 0.37 0.00 - 02/26 ENZYMES 0.40 /2013 [facility] CARDIAC Total CK 101 12 - 191 02/26 MH ENZYMES [facility] CARDIAC CK MB Index 1.6 0.0 - 2.5 02/26 ENZYMES [facility] CARDIAC CK MB 1.6 0.5 - 3.6 02/26 ENZYMES [facility] CHEM PANEL A/G Ratio 0.9 0.7 - 1.6 02/26 [facility] CHEM PANEL B/C Ratio 9 6 - 25 02/26 [facility] CHEM PANEL Globulin 3.7 2.0 - 4.0 02/26 [facility] CHEM PANEL ALT 13 0 - 65 02/26 [facility] CHEM PANEL AST 20 0 - 37 02/26 [facility] CHEM PANEL Alk Phos 70 39 - 136 02/26 [facility] CHEM PANEL Bili Total 0.8 0.2 - 1.3 02/26 [facility] CHEM PANEL Total 6.9 6.4 - 8.4 02/26 Protein /2013 [facility] CHEM PANEL Albumin Lvl 3.2 3.5 - 5.0 02/26 [facility] CARDIAC BNP 441 <=100 02/26 <sup>8</sup>I ENZYMES pg/mL nterpretive [facility] Data: Elevated results are in line with increasing severity of
con gestive heart failure. Minor elevations between 100 and 300
may be seen with Myocardial Ischemia, Sodium retaining drugs,
an d compensated/t reated heart failure. URINE AND UA Sq Epi None Seen Few 02/26 STOOL (02/25/14 9:10 PM) [facility] URINE AND UA Bacteria None Seen None Seen 02/26 STOOL (02/25/14 9:10 PM) [facility] URINE AND UA Color Yellow Yellow 02/26 STOOL *NA* /2013 [facility] (02/25/14 9:10 PM) URINE AND UA Nitrite Negative Negative 02/26 STOOL (02/25/14 9:10 PM) [facility] URINE AND UA Leuk Est Negative Negative 02/26 STOOL (02/25/14 9:10 PM) [facility] URINE AND UA Glucose Negative Negative 02/26 STOOL (02/25/14 9:10 PM) [facility] URINE AND UA Ketones Negative Negative 02/26 STOOL *NA* /2013 [facility] (02/25/14 9:10 PM) URINE AND UA Bili Negative Negative 02/26 STOOL *NA* /2013 [facility] (02/25/14 9:10 PM) URINE AND UA Blood Small Negative 02/26 STOOL *ABN* /2013 [facility] (02/25/14 9:10 PM) URINE AND UA 0.2 0.1 - 1.0 02/26 STOOL Urobilinogen /2013 [facility] URINE AND UA Turbidity Clear Clear 02/26 STOOL (02/25/14 9:10 PM) /2013 [facility] URINE AND UA Spec Grav 1.015 <=1.030 02/26 STOOL /2013 [facility] URINE AND UA pH 5.5 5.0 - 8.0 02/26 STOOL [facility] URINE AND UA Protein Negative Negative 02/26 STOOL (02/25/14 9:10 PM) [facility] CARDIAC CK MB 1.9 0.5 - 3.6 02/26 ENZYMES [facility] CARDIAC Troponin-I 0.38 0.00 - 02/26 ENZYMES 0.40 [facility] CARDIAC Total CK 100 12 - 191 02/26 ENZYMES [facility] CARDIAC CK MB Index 1.9 0.0 - 2.5 02/26 ENZYMES [facility] [facility] CHEM PANEL Total 7.4 6.4 - 8.4 02/26 Protein [facility] CHEM PANEL Bili Total 0.6 0.2 - 1.3 02/26 [facility] CHEM PANEL Alk Phos 77 39 - 136 02/26 [facility] CHEM PANEL AST 13 0 - 37 02/26 [facility] CHEM PANEL ALT 15 0 - 65 02/26 [facility] CHEM PANEL Albumin Lvl 3.2 3.5 - 5.0 02/26 [facility] CHEM PANEL Globulin 4.2 2.0 - 4.0 02/26 [facility] CHEM PANEL A/G Ratio 0.8 0.7 - 1.6 02/26 [facility] CHEM PANEL B/C Ratio 9 6 - 25 02/26 [facility] HEMATOLOGY D-Dimer 0.81 02/26 <sup>10</sup> MH Interpretive [facility] Data: In DIC, quantitative D-Dimer is generally greater than
0 .66 ug/mL FEU. Values of quantitative D-Dimer less than
0.40 ug/mL FEU have been reported to be associated with a low
proba bility of deep vein thrombosis/pu lmonary embolism.<br/ >This test alone should not be used to rule out DVT/PE. HEMATOLOGY PTT 42.2 22.9 - 02/26 <sup>11</sup> MH 35.8 /2014 Interpretive [facility] Data: Heparin Therapeutic Range: 57 - 92 Seconds HEMATOLOGY INR 1.36 0.85 - 02/26 <sup>9</sup>I 1.17 nterpretive [facility] Data: RECOMMENDED RANGES FOR PROTIME INR:
2.0-3.0 for most medical and surgical thromboemboli c states.
2.5-3.5 for artificial heart valves and recurrent embolism.<br/ >
INR SHOULD BE USED ONLY FOR PATIENTS ON STABLE ANTICOAGULANT THERAPY. HEMATOLOGY PT 16.9 12.0 - 02/26 MH 14.7 [facility] CHEM PANEL eGFR 38 01/28 <sup>1</sup>R esult [facility] Comment: The eGFR is calculated using the CKD-EPI formula. In most young, healthy individuals the eGFR will be >90 mL/min/1.73m2 . The eGFR declines with age. An eGFR of 60-89 may be normal in some populations, particularly the elderly, for whom the CKD-EPI formula has not been extensively validated. Use of the eGFR is not recommended in the following populations:& lt;br/>
I ndividuals with unstable creatinine concentration s, including patients and those with serious co-morbid conditions.<b r/>
Patie nts with extremes in muscle mass or diet.

The data above are obtained from the National Kidney Disease Education Program (NKDEP) which additionally recommends that when the eGFR is used in patients with extremes of body mass index for purposes of drug dosing, the eGFR should be multiplied by the estimated BMI. CHEM PANEL Calcium Lvl 8.6 8.5 - 10.5 01/28 [facility] CHEM PANEL AGAP 13.1 10.0 - 01/28 MH 20.0 [facility] CHEM PANEL CO2 28 24 - 32 01/28 [facility] CHEM PANEL BUN 24 7 - 22 01/28 [facility] CHEM PANEL Glucose Lvl 99 70 - 99 01/28 <sup>4</sup>I nterpretive [facility] Data: Adult reference range values reflect the clinical guidelines
of the [place] [employer]. CHEM PANEL Chloride Lvl 106 95 - 109 01/28 [facility] CHEM PANEL Potassium 4.1 3.5 - 5.1 01/28 [facility] CHEM PANEL Sodium Lvl 143 135 - 145 01/28 [facility] CHEM PANEL Creatinine 1.7 0.5 - 1.4 01/28 [facility] CHEM PANEL Magnesium 2.1 1.8 - 2.4 01/28 Lvl /2013 [facility] CHEM PANEL Phosphorus 2.6 2.5 - 4.5 01/28 /2013 [facility] HEMATOLOGY Segs-Bands # 5.0 1.5 - 8.1 01/28 [facility] HEMATOLOGY Basophils 0.4 0.0 - 1.0 01/28 [facility] HEMATOLOGY Eosinophils 0.1 0.0 - 0.5 01/28 # /2013 [facility] HEMATOLOGY Monocytes # 0.5 0.0 - 0.8 01/28 [facility] HEMATOLOGY Lymphocytes 1.8 1.0 - 5.5 01/28 # /2013 [facility] HEMATOLOGY Lymphocytes 24.7 20.0 - 01/28 40.0 /2013 [facility] HEMATOLOGY Segs 66.4 45.0 - 01/28 75.0 /2013 [facility] HEMATOLOGY Eosinophils 1.7 0.0 - 4.0 01/28 [facility] HEMATOLOGY Monocytes 6.8 2.0 - 12.0 01/28 /2013 [facility] HEMATOLOGY MPV 10.3 7.4 - 10.4 01/28 [facility] HEMATOLOGY Platelet 79 133 - 450 01/28 [facility] HEMATOLOGY Hgb 11.3 14.0 - 01/28 18.0 /2013 [facility] HEMATOLOGY WBC 7.5 3.7 - 10.4 01/28 [facility] HEMATOLOGY RBC 3.84 4.70 - 01/28 6.10 /2013 [facility] HEMATOLOGY RDW 14.1 11.5 - 01/28 14.5 /2013 [facility] Hct 34.2 42.0 - 01/28 54.0 /2013 [facility] MCV 89.0 80.0 - 01/28 94.0 [facility] HEMATOLOGY MCH 29.3 27.0 - 01/28 31.0 [facility] HEMATOLOGY MCHC 32.9 32.0 - 01/28 36.0 /2013 [facility] CHEM PANEL Magnesium 2.0 1.8 - 2.4 01/27 l [facility] CHEM PANEL eGFR 35 01/27 <sup>2</sup>R esult [facility] Comment: The eGFR is calculated using the CKD-EPI formula. In most young, healthy individuals the eGFR will be >90 mL/min/1.73m2 . The eGFR declines with age. An eGFR of 60-89 may be normal in some populations, particularly the elderly, for whom the CKD-EPI formula has not been extensively validated. Use of the eGFR is not recommended in the following populations:& lt;br/>
I ndividuals with unstable creatinine concentration s, including patients and those with serious co-morbid conditions.<b r/>
Patie nts with extremes in muscle mass or diet.

The data above are obtained from the National Kidney Disease Education Program (NKDEP) which additionally recommends that when the eGFR is used in patients with extremes of body mass index for purposes of drug dosing, the eGFR should be multiplied by the estimated BMI. CHEM PANEL Calcium Lvl 8.3 8.5 - 10.5 01/27 [facility] CHEM PANEL CO2 29 24 - 32 01/27 [facility] CHEM PANEL AGAP 8.3 10.0 - 01/27 MH . [facility] CHEM PANEL Chloride Lvl 104 95 - 109 01/27 [facility] CHEM PANEL Potassium 4.3 3.5 - 5.1 01/27 Lv [facility] CHEM PANEL Sodium Lvl 137 135 - 145 01/27 [facility] CHEM PANEL BUN 26 7 - 22 01/27 [facility] CHEM PANEL Creatinine 1.8 0.5 - 1.4 01/27 Lvl [facility] CHEM PANEL Glucose Lvl 163 70 - 99 01/27 <sup>5</sup>I nterpretive [facility] Data: Adult reference range values reflect the clinical guidelines
of the [place] [employer]. CHEM PANEL Magnesium 1.5 1.8 - 2.4 01/27 MH Lv [facility] ELECTROLYT AGAP 11.4 10.0 - 01/27 MH ES . [facility] ELECTROLYT eGFR 35 01/27 <sup>3</sup>R MH esult [facility] Comment: The eGFR is calculated using the CKD-EPI formula. In most young, healthy individuals the eGFR will be >90 mL/min/1.73m2 . The eGFR declines with age. An eGFR of 60-89 may be normal in some populations, particularly the elderly, for whom the CKD-EPI formula has not been extensively validated. Use of the eGFR is not recommended in the following populations:& lt;br/>
I ndividuals with unstable creatinine concentration s, including patients and those with serious co-morbid conditions.<b r/>
Patie nts with extremes in muscle mass or diet.

The data above are obtained from the National Kidney Disease Education Program (NKDEP) which additionally recommends that when the eGFR is used in patients with extremes of body mass index for purposes of drug dosing, the eGFR should be multiplied by the estimated BMI. ELECTROLYT Chloride Lvl 104 95 - 109 01/27 ES [facility] ELECTROLYT Potassium 4.4 3.5 - 5.1 01/27 ES Lvl [facility] ELECTROLYT Sodium Lvl 139 135 - 145 01/27 ES [facility] ELECTROLYT Creatinine 1.8 0.5 - 1.4 01/27 ES Lvl [facility] ELECTROLYT Calcium Lvl 8.6 8.5 - 10.5 01/27 ES [facility] ELECTROLYT CO2 28 24 - 32 01/27 ES [facility] ELECTROLYT BUN 26 7 - 22 01/27 ES [facility] ELECTROLYT Glucose Lvl 112 70 - 99 01/27 <sup>6</sup>I MH nterpretive [facility] Data: Adult reference range values reflect the clinical guidelines
of the [place] [employer]. HEMATOLOGY MCH 28.8 27.0 - 01/27 MH 31.0 /2013 [facility] HEMATOLOGY MCHC 32.0 32.0 - 01/27 MH 36.0 /2013 [facility] HEMATOLOGY RDW 14.2 11.5 - 01/27 MH 14.5 /2013 [facility] HEMATOLOGY MPV 9.8 7.4 - 10.4 01/27 [facility] HEMATOLOGY Platelet 71 133 - 450 01/27 /2013 [facility] HEMATOLOGY RBC 4.06 4.70 - 01/27 MH 6.10 /2013 [facility] HEMATOLOGY WBC 6.2 3.7 - 10.4 01/27 [facility] HEMATOLOGY Hct 36.5 42.0 - 01/27 MH 54.0 /2013 [facility] HEMATOLOGY MCV 90.0 80.0 - 01/27 MH 94.0 /2013 [facility] HEMATOLOGY Hgb 11.7 14.0 - 01/27 MH 18.0 [facility] HEMATOLOGY Lymphocytes 1.6 1.0 - 5.5 01/27 MH # /2013 [facility] HEMATOLOGY Segs-Bands # 4.2 1.5 - 8.1 01/27 /2013 [facility] HEMATOLOGY Basophils 0.3 0.0 - 1.0 01/27 /2013 [facility] HEMATOLOGY Eosinophils 0.1 0.0 - 0.5 01/27 MH # /2014 [facility] HEMATOLOGY Monocytes # 0.2 0.0 - 0.8 01/27 /2013 [facility] HEMATOLOGY Basophils # 0.0 0.0 - 0.2 01/27 /2013 [facility] HEMATOLOGY Lymphocytes 26.0 20.0 - 01/27 MH 40.0 /2013 [facility] HEMATOLOGY Segs 68.2 45.0 - 01/27 MH 75.0 /2013 [facility] HEMATOLOGY Eosinophils 1.5 0.0 - 4.0 01/27 [facility] HEMATOLOGY Monocytes 4.0 2.0 - 12.0 01/27 [facility] LIPIDS CHD Risk 3.36 4.00 - 01/27 7.30 /2013 [facility] LIPIDS VLDL 23 01/27 [facility] LIPIDS LDL 69 <=99 mg/dL 01/27 (Calculated) /2013 [facility] LIPIDS HDL 39 >=61 mg/dL 01/27 [facility] LIPIDS Chol 131 <=199 01/27 mg/dL [facility] LIPIDS Trig 114 <=149 01/27 mg/dL /2013 [facility] TOXICOLOGY Digoxin Lvl 1.2 0.8 - 2.0 01/27 [facility] URINE AND UA <=1.0 0.1 - 1.0 01/26 STOOL Urobilinogen /2013 [facility] URINE AND UA Sq Epi None Seen 01/26 STOOL [facility] URINE AND UA WBC <1 0 - 5 01/26 STOOL /2013 [facility] URINE AND UA Spec Grav 1.005 <=1.030 01/26 STOOL /2013 [facility] URINE AND UA Turbidity Clear Clear 01/26 STOOL (01/26/14 9:15 AM) /2013 [facility] est URINE AND UA Color Colorless Yellow 01/26 STOOL *NA* /2013 [facility] (01/26/14 9:15 AM) URINE AND UA Glucose Negative Negative 01/26 STOOL mg/dL mg/dL /2013 [facility] URINE AND UA Protein Negative Negative 01/26 STOOL mg/dL mg/dL /2013 [facility] URINE AND UA pH 7.0 5.0 - 8.0 01/26 STOOL /2013 [facility] URINE AND UA Leuk Est Negative Negative 01/26 STOOL (01/26/14 9:15 AM) /2013 [facility] URINE AND UA Blood Negative Negative 01/26 STOOL (01/26/14 9:15 AM) [facility] est URINE AND UA Bili Negative Negative 01/26 STOOL *NA* /2013 [facility] (01/26/14 9:15 AM) URINE AND UA Nitrite Negative Negative 01/26 STOOL (01/26/14 9:15 AM) [facility] est URINE AND UA Ketones Negative Negative 01/26 STOOL mg/dL mg/dL [facility] ANEMIA Folate Lvl 10.9 >=3.0 01/26 STUDY ng/mL /2013 [facility] ANEMIA Vitamin B12 475 254 - 1320 01/26 STUDY Lvl /2013 [facility] CARDIAC BNP 617 <=100 01/26 <sup>7</sup>I ENZYMES pg/mL /2013 nterpretive [facility] Data: Elevated results are in line with increasing severity of
con gestive heart failure. Minor elevations between 100 and 300
may be seen with Myocardial Ischemia, Sodium retaining drugs,
an d compensated/t reated heart failure. CARDIAC Troponin-I 0.28 0.00 - 01/26 ENZYMES 0.40 /2013 [facility] CARDIAC Total CK 88 12 - 191 01/26 ENZYMES [facility] CARDIAC CK MB Index 3.0 0.0 - 2.5 01/26 ENZYMES [facility] CARDIAC CK MB 2.6 0.5 - 3.6 01/26 ENZYMES [facility] CHEM PANEL Phosphorus 2.6 2.5 - 4.5 01/26 [facility] CHEM PANEL Bili 0.5 0.0 - 1.0 01/26 Indirect [facility] CHEM PANEL A/G Ratio 0.9 0.7 - 1.6 01/26 [facility] CHEM PANEL Globulin 4.1 2.0 - 4.0 01/26 [facility] CHEM PANEL Bili Total 0.7 0.2 - 1.3 01/26 [facility] CHEM PANEL Bili Direct 0.2 0.0 - 0.3 01/26 [facility] CHEM PANEL AST 15 0 - 37 01/26 [facility] CHEM PANEL Alk Phos 78 39 - 136 01/26 [facility] CHEM PANEL Total 7.6 6.4 - 8.4 01/26 Protein [facility] CHEM PANEL Albumin Lvl 3.5 3.5 - 5.0 01/26 /2013 [facility] CHEM PANEL ALT 17 0 - 65 01/26 /2013 [facility] HEMATOLOGY Platelet 84 133 - 450 01/26 /2013 [facility] HEMATOLOGY MPV 9.8 7.4 - 10.4 01/26 /2013 [facility] WBC 6.6 3.7 - 10.4 01/26 /2013 [facility] MCH 29.2 27.0 - 01/26 MH 31.0 /2013 [facility] MCHC 32.7 32.0 - 01/26 MH 36.0 /2013 [facility] HEMATOLOGY RDW 14.3 11.5 - 01/26 MH 14.5 /2013 [facility] HEMATOLOGY MCV 89.2 80.0 - 01/26 MH 94.0 /2013 [facility] HEMATOLOGY Hgb 13.2 14.0 - 01/26 MH 18.0 [facility] Hct 40.4 42.0 - 01/26 54.0 /2013 [facility] RBC 4.53 4.70 - 01/26 MH 6.10 [facility] INR 1.23 0.85 - 01/26 <sup>8</sup>I MH 1. nterpretive [facility] Data: RECOMMENDED RANGES FOR PROTIME INR:
2.0-3.0 for most medical and surgical thromboemboli c states.
2.5-3.5 for artificial heart valves and recurrent embolism.<br/ >
INR SHOULD BE USED ONLY FOR PATIENTS ON STABLE ANTICOAGULANT THERAPY. HEMATOLOGY PT 15.6 12.0 - 01/26 MH 14.7 /2013 [facility] HEMATOLOGY Eosinophils 1.6 0.0 - 4.0 01/26 /2013 [facility] HEMATOLOGY Monocytes 4.6 2.0 - 12.0 01/26 /2013 [facility] HEMATOLOGY Segs-Bands # 4.4 1.5 - 8.1 01/26 /2013 [facility] HEMATOLOGY Basophils 0.7 0.0 - 1.0 01/26 /2013 [facility] HEMATOLOGY Eosinophils 0.1 0.0 - 0.5 01/26 MH # /2013 [facility] HEMATOLOGY Lymphocytes 1.8 1.0 - 5.5 01/26 MH # /2014 [facility] Monocytes # 0.3 0.0 - 0.8 01/26 /2013 [facility] Lymphocytes 27.2 20.0 - 01/26 MH 40.0 /2013 [facility] HEMATOLOGY Segs 65.9 45.0 - 01/26 MH 75.0 /2014 [facility] THYROID TSH 2.320 0.360 - 01/26 PANEL 3.740 [facility] Microbiolo Culture: AFB 07/21 Sugar gy w/Smear [facility] Microbiolo Culture: CMV 07/21 Sugar gy ([place] Antigen) Microbiolo Culture: 07/21 Sugar gy Fungal [place] w/Smear Microbiolo Culture: 07/21 Sugar gy Herpes [facility] Simplex Virus Microbiolo Culture: 07/21 Sugar [facility] Respiratory [place] w/Gram Stain Microbiolo Culture: 07/21 Sugar gy Viral [facility] Complete CHEMISTRY BNP 195 <=100 02/26 HI <sup>8</sup>I nterpretive [facility] Data: Elevated results are in line with increasing severity of
conge stive heart failure. Minor elevations between 100 and 300
may be seen with Myocardial Ischemia, Sodium retaining drugs,
and compensated/t reated heart failure. CHEMISTRY eGFR 84 02/26 NA <sup>2</sup>R esult [facility] Comment: The eGFR is calculated using the CKD-EPI formula. In most young, healthy individuals the eGFR will be >90 mL/min/1.73m2 . The eGFR declines with age. An eGFR of 60-89 may be normal in some populations, particularly the elderly, for whom the CKD-EPI formula has not been extensively validated. Use of the eGFR is not recommended in the following populations:& lt;br/>
I ndividuals with unstable creatinine concentration s, including patients and those with serious co-morbid conditions.<b r/>
Patie nts with extremes in muscle mass or diet.

The data above are obtained from the National Kidney Disease Education Program (NKDEP) which additionally recommends that when the eGFR is used in patients with extremes of body mass index for purposes of drug dosing, the eGFR should be multiplied by the estimated BMI. CHEMISTRY Potassium 3.8 3.5 - 5.1 02/26 Normal MH Lvl /2011 [facility] CHEMISTRY Chloride Lvl 102 95 - 109 02/26 Normal MH [facility] CHEMISTRY Sodium Lvl 142 135 - 145 02/26 Normal [facility] CHEMISTRY Creatinine 1.0 0.5 - 1.4 10 Normal MH Lvl /2011 [facility] CHEMISTRY BUN 17 7 - 22 10 Normal MH [facility] CHEMISTRY Glucose Lvl 84 70 - 99 02/26 Normal <sup>5</sup>I MH /2011 nterpretive [facility] Data: Adult reference range values reflect the clinical guidelines
of the [place] [employer]. CHEMISTRY Calcium Lvl 7.9 8.5 - 10.5 10 LOW MH /2011 [facility] CHEMISTRY CO2 28 24 - 32 10 Normal MH /2011 [facility] CHEMISTRY AGAP 15.8 10.0 - 10 Normal MH 20.0 [facility] HEMATOLOGY Monocytes 8.3 2.0 - 12.0 10 Normal MH /2011 [facility] HEMATOLOGY Eosinophils 3.1 0.0 - 4.0 02/26 Normal MH /2011 [facility] HEMATOLOGY Segs 44.7 45.0 - 02/26 LOW MH 75.0 /2011 [facility] HEMATOLOGY Lymphocytes 43.6 20.0 - 02/26 HI MH 40.0 [facility] HEMATOLOGY Plt Morph Normal 02/26 Normal MH (02/27/2012 05:30:00) /2011 [facility] HEMATOLOGY Basophils # 0.0 0.0 - 0.2 10 Normal MH /2011 [facility] HEMATOLOGY Eosinophils 0.1 0.0 - 0.5 02/26 Normal MH # /2011 [facility] HEMATOLOGY Lymphocytes 2.0 1.0 - 5.5 02/26 Normal MH # /2011 [facility] HEMATOLOGY Monocytes # 0.4 0.0 - 0.8 02/26 Normal MH /2011 [facility] HEMATOLOGY Basophils 0.3 0.0 - 1.0 02/26 Normal MH /2011 [facility] HEMATOLOGY Segs-Bands # 2.0 1.5 - 8.1 02/26 Normal MH /2011 [facility] HEMATOLOGY Elliptocyte Slight None Seen 02/26 ABN MH *ABN* /2011 [facility] (02/27/2012 05:30:00) HEMATOLOGY MPV 9.9 7.4 - 10.4 02/26 Normal MH /2011 [facility] HEMATOLOGY MCH 31.3 27.0 - 10 HI MH 31.0 [facility] HEMATOLOGY MCHC 33.7 32.0 - 10 Normal MH 36.0 [facility] HEMATOLOGY RDW 14.8 11.5 - 02/26 HI MH 14.5 [facility] HEMATOLOGY Platelet 34 133 - 450 10/20 LOW MH /2011 [facility] HEMATOLOGY MCV 92.9 80.0 - 02/26 Normal MH 94.0 [facility] HEMATOLOGY WBC 4.6 3.7 - 10.4 02/26 Normal MH /2011 [facility] HEMATOLOGY RBC 3.40 4.70 - 02/26 LOW MH 6. [facility] HEMATOLOGY Hgb 10.6 14.0 - 02/26 LOW MH 18.0 [facility] HEMATOLOGY Hct 31.6 42.0 - 02/26 LOW MH 54.0 [facility] CHEMISTRY BNP 157 <=100 02/25 HI <sup>9</sup>I nterpretive [facility] Data: Elevated results are in line with increasing severity of
conge stive heart failure. Minor elevations between 100 and 300
may be seen with Myocardial Ischemia, Sodium retaining drugs,
and compensated/t reated heart failure. CHEMISTRY Potassium 3.9 3.5 - 5.1 02/25 Normal <sup>1</sup>R MH Lvl [facility] Comment: Specimen Slightly Hemolyzed. CHEMISTRY AGAP 11.9 10.0 - 02/25 Normal MH 20.0 [facility] CHEMISTRY Calcium Lvl 7.7 8.5 - 10.5 02/25 LOW MH [facility] CHEMISTRY Glucose Lvl 111 70 - 99 02/25 HI <sup>6</sup>I nterpretive [facility] Data: Adult reference range values reflect the clinical guidelines
of the [place] [employer]. CHEMISTRY eGFR 68 02/25 NA <sup>3</sup>R [facility] Comment: The eGFR is calculated using the CKD-EPI formula. In most young, healthy individuals the eGFR will be >90 mL/min/1.73m2 . The eGFR declines with age. An eGFR of 60-89 may be normal in some populations, particularly the elderly, for whom the CKD-EPI formula has not been extensively validated. Use of the eGFR is not recommended in the following populations:& lt;br/>
I ndividuals with unstable creatinine concentration s, including patients and those with serious co-morbid conditions.<b r/>
Patie nts with extremes in muscle mass or diet.

The data above are obtained from the National Kid[employer] Disease Education Program (NKDEP) which additionally recommends that when the eGFR is used in patients with extremes of body mass index for purposes of drug dosing, the eGFR should be multiplied by the estimated BMI. CHEMISTRY BUN 26 7 - 22 02/25 HI MH [facility] CHEMISTRY Creatinine 1.2 0.5 - 1.4 02/25 Normal MH Lvl /2011 [facility] CHEMISTRY Sodium Lvl 138 135 - 145 02/25 Normal [facility] CHEMISTRY Chloride Lvl 99 95 - 109 02/25 Normal MH [facility] CHEMISTRY CO2 31 24 - 32 02/25 Normal MH [facility] CHEMISTRY Total CK 149 12 - 191 02/25 Normal [facility] CHEMISTRY Troponin-I 0.11 0.00 - 10 Normal MH 0.40 [facility] CHEMISTRY CK MB 1.5 0.5 - 3.6 02/25 Normal MH [facility] CHEMISTRY CK MB Index 1.0 0.0 - 2.5 02/25 Normal [facility] CHEMISTRY CK MB Index 1.3 0.0 - 2.5 02/25 Normal [facility] CHEMISTRY Globulin 3.2 2.0 - 4.0 02/25 Normal MH [facility] CHEMISTRY A/G Ratio 0.8 0.7 - 1.6 02/25 Normal [facility] CHEMISTRY AGAP 12.5 10.0 - 10 Normal MH 20.0 [facility] CHEMISTRY B/C Ratio 22 6 - 25 02/25 Normal MH [facility] CHEMISTRY Total 5.8 6.4 - 8.4 02/25 LOW MH [facility] CHEMISTRY AST 20 0 - 37 02/25 Normal [facility] CHEMISTRY Calcium Lvl 7.8 8.5 - 10.5 02/25 LOW MH [facility] CHEMISTRY Bili Total 0.6 0.2 - 1.3 02/25 Normal [facility] CHEMISTRY CO2 30 24 - 32 02/25 Normal MH [facility] CHEMISTRY eGFR 48 02/25 NA <sup>4</sup>R esult [facility] Comment: The eGFR is calculated using the CKD-EPI formula. In most young, healthy individuals the eGFR will be >90 mL/min/1.73m2 . The eGFR declines with age. An eGFR of 60-89 may be normal in some populations, particularly the elderly, for whom the CKD-EPI formula has not been extensively validated. Use of the eGFR is not recommended in the following populations:& lt;br/>
I ndividuals with unstable creatinine concentration s, including patients and those with serious co-morbid conditions.<b r/>
Patie nts with extremes in muscle mass or diet.

The data above are obtained from the National Kidney Disease Education Program (NKDEP) which additionally recommends that when the eGFR is used in patients with extremes of body mass index for purposes of drug dosing, the eGFR should be multiplied by the estimated BMI. CHEMISTRY BUN 36 7 - 22 02/25 HI [facility] CHEMISTRY Glucose Lvl 91 70 - 99 02/25 Normal <sup>7</sup>I nterpretive [facility] Data: Adult reference range values reflect the clinical guidelines
of the [place] [employer]. CHEMISTRY Albumin Lvl 2.6 3.5 - 5.0 02/25 LOW [facility] CHEMISTRY Alk Phos 33 39 - 136 02/25 LOW [facility] CHEMISTRY ALT 15 0 - 65 02/25 Normal [facility] CHEMISTRY Potassium 3.5 3.5 - 5.1 02/25 Normal [facility] CHEMISTRY Chloride Lvl 99 95 - 109 02/25 Normal [facility] CHEMISTRY Creatinine 1.6 0.5 - 1.4 02/25 [facility] Lvl [facility] CHEMISTRY Sodium Lvl 138 135 - 145 02/25 Normal [facility] CHEMISTRY Hgb A1C 5.6 02/25 NA <sup>10</sup> Interpretive [facility] Data: HbA1C% eAG(mg/dL) Interpretatio n
6.0 126 Very good control
6.5 140 Very good control
7.0 154 Good Control
7.5 169 Good Control
8.0 183 Marginal Control, take action to lower
8.5 197 Marginal Control, take action to lower
9.0 212 Poor Control, take action to lower
9.5 226 Poor Control, take action to lower
10. 0 240 Poor Control, take action to lower CHEMISTRY LDL 41 0 - 129 02/25 Normal [facility] CHEMISTRY HDL 39 >=35 02/25 Normal [facility] CHEMISTRY Trig 92 0 - 200 02/25 Normal [facility] CHEMISTRY Chol 98 120 - 200 02/25 LOW MH [facility] CHEMISTRY CHD Risk 2.51 4.00 - 02/25 LOW 7. [facility] CHEMISTRY Total CK 128 12 - 191 02/25 Normal [facility] CHEMISTRY Troponin-I 0.10 0.00 - 02/25 Normal 0.40 [facility] CHEMISTRY CK MB 1.7 0.5 - 3.6 02/25 Normal [facility] CHEMISTRY CK MB Index 0.4 0.0 - 2.5 02/25 Normal [facility] CHEMISTRY Total CK 291 12 - 191 02/25 HI MH [facility] CHEMISTRY LDL 13 0 - 129 02/25 Normal [facility] CHEMISTRY HDL 42 >=35 02/25 Normal MH [facility] CHEMISTRY CHD Risk 1.95 4.00 - 02/25 LOW . [facility] CHEMISTRY Chol 82 120 - 200 02/25 LOW MH [facility] CHEMISTRY Trig 137 0 - 200 02/25 Normal [facility] CHEMISTRY Troponin-I 0.09 0.00 - 02/25 Normal 0.40 [facility] CHEMISTRY CK MB 1.1 0.5 - 3.6 02/25 Normal MH [facility] BEDSIDE Gluc POC 177 70 - 99 12/07 HI <sup>2</sup>I [facility] Data: [place] Reportable Limit: 200 mg/dL. BEDSIDE Gluc POC 174 70 - 99 12/07 HI <sup>3</sup>I [facility] Data: [place] Upper Reportable Limit: 200 mg/dL. BEDSIDE Comment1 Notify 12/07 NA [place] GLUCOSE RN/ /2011 Medical TESTING Center BEDSIDE Comment1 Notify 12/07 [facility] GLUCOSE RN/ /2012 Medical TESTING Center BEDSIDE Gluc POC 197 70 - 99 12/07 HI <sup>4</sup>I [facility] Data: [place] Upper Reportable Limit: 200 mg/dL. BEDSIDE Comment1 Notify 12/06 [facility] GLUCOSE [place]/ /2012 Medical TESTING Center CHEMISTRY AGAP 14.5 10.0 - 12/06 Normal [facility] 20.0 Medical Center CHEMISTRY Sodium Lvl 144 135 - 145 12/06 Normal Medical Center CHEMISTRY Creatinine 1.3 0.5 - 1.4 12/06 Normal [place] [facility] CHEMISTRY BUN 25 7 - 22 12/06 HI [facility] CHEMISTRY Glucose Lvl 159 70 - 99 12/06 HI <sup>5</sup>I MH T ex nterpretive Medical Data: Adult Center reference range values reflect the clinical guidelines
of the [place] [employer]. CHEMISTRY Calcium Lvl 8.7 8.5 - 10.5 12/06 [place] [facility] CHEMISTRY CO2 31 24 - 32 12/06 Normal Medical Center CHEMISTRY Potassium 4.5 3.5 - 5.1 12/06 Normal [place] L[facility] CHEMISTRY Chloride Lvl 103 95 - 109 12/06 Normal Medical Center HEMATOLOGY WBC 13.2 3.7 - 10.4 12/06 [facility] Medical Center HEMATOLOGY Hct 31.9 42.0 - 12/06 LOW [place] 54.0 /2011 Medical Center HEMATOLOGY RBC 3.40 4.70 - 12/06 LOW [place] 6.10 Medical Center HEMATOLOGY Hgb 10.6 14.0 - 12/06 LOW [place] 18.0 Medical Center HEMATOLOGY MCV 93.7 80.0 - 12/06 Normal [place] 94.0 Medical Center HEMATOLOGY MCH 31.1 27.0 - 12/06 [facility] [place] 31.0 Medical Center HEMATOLOGY Platelet 133 133 - 450 12/06 Normal Medical Center HEMATOLOGY MCHC 33.2 32.0 - 12/06 Normal [place] 36.0 /2011 Medical Center HEMATOLOGY RDW 17.0 11.5 - 12/06 [facility] [place] 14.5 Medical Center HEMATOLOGY MPV 9.4 7.4 - 10.4 12/06 Normal Medical Center HEMATOLOGY Monocytes # 0.8 0.0 - 0.8 12/06 [place] [facility] HEMATOLOGY Eosinophils 0.0 0.0 - 0.5 12/06 [place] # [facility] HEMATOLOGY Lymphocytes 0.8 1.0 - 5.5 12/06 [place] # [facility] HEMATOLOGY Basophils # 0.0 0.0 - 0.2 12/06 [place] [facility] HEMATOLOGY Segs 88.5 45.0 - 12/06 HI [place] 75.0 Medical Center HEMATOLOGY Monocytes 5.7 2.0 - 12.0 12/06 Normal Medical Center HEMATOLOGY Lymphocytes 5.8 20.0 - 12/06 LOW [place] 40.0 Medical Center HEMATOLOGY Basophils 0.0 0.0 - 1.0 12/06 Normal Medical Center HEMATOLOGY Eosinophils 0.0 0.0 - 4.0 12/06 Normal Medical Center HEMATOLOGY Segs-Bands # 11.7 1.5 - 8.1 12/06 HI Medical Center CHEMISTRY AGAP 14.0 10.0 - 12/05 Normal [place] 20.0 Medical Center CHEMISTRY Potassium 4.0 3.5 - 5.1 12/05 Normal Medical Center CHEMISTRY Chloride Lvl 107 95 - 109 12/05 Normal Medical Center CHEMISTRY CO2 28 24 - 32 12/05 Normal Medical Center CHEMISTRY Sodium Lvl 145 135 - 145 12/05 Normal Medical Center CHEMISTRY Calcium Lvl 8.1 8.5 - 10.5 12/05 LOW Medical [facility] CHEMISTRY Glucose Lvl 151 70 - 99 12/05 HI <sup>6</sup>I [place] nterpretive Medical Data: Adult Center reference range values reflect the clinical guidelines
of the [place] [employer]. CHEMISTRY BUN 28 7 - 22 12/05 HI Medical Center CHEMISTRY Creatinine 1.3 0.5 - 1.4 12/05 Normal Medical Center CHEMISTRY Magnesium 2.1 1.8 - 2.4 12/05 Normal Medical Center CHEMISTRY Phosphorus 3.4 2.5 - 4.5 12/05 Normal Medical Center CHEMISTRY Ca Ion mgdL 4.68 4.65 - 12/05 Normal 09.26 Medical Center CHEMISTRY Ca Norm mgdL 4.76 4. - 12/05 Normal 09.26 Medical Center CHEMISTRY Ca Ion 1.17 1.16 - 12/05 Normal [place] 06.08 Medical Center CHEMISTRY Ca Norm 1.19 1.16 - 12/05 Normal 06.08 Medical Center HEMATOLOGY MPV 9.4 7.4 - 10.4 12/05 Normal Medical Center HEMATOLOGY Hct 30.9 42.0 - 12/05 LOW [place] 54.0 /2011 Medical Center HEMATOLOGY Hgb 10.4 14.0 - 12/05 LOW [place] 18.0 Medical Center HEMATOLOGY MCV 93.8 80.0 - 12/05 Normal [place] 94.0 /2011 Medical Center HEMATOLOGY MCH 31.5 27.0 - 12/05 HI [place] 31.0 Medical Center HEMATOLOGY Platelet 118 133 - 450 12/05 LOW Medical [place] HEMATOLOGY MCHC 33.5 32.0 - 12/05 Normal [place] 36.0 Medical Center HEMATOLOGY RDW 16.1 11.5 - 12/05 [facility] [place] 14.5 Medical Center HEMATOLOGY WBC 11.9 3.7 - 10.4 12/05 [facility] Medical [place] HEMATOLOGY RBC 3.30 4.70 - 12/05 LOW [place] 6.10 /2011 Medical Center HEMATOLOGY Lymphocytes 5.5 20.0 - 12/05 LOW [place] 40.0 /2011 Medical Center HEMATOLOGY Monocytes 5.8 2.0 - 12.0 12/05 Normal [facility] HEMATOLOGY Segs 88.6 45.0 - 12/05 [facility] [place] 75.0 Medical Center HEMATOLOGY Eosinophils 0.0 0.0 - 0.5 12/05 [place] [facility] HEMATOLOGY Basophils # 0.0 0.0 - 0.2 12/05 Normal [place] [facility] HEMATOLOGY Monocytes # 0.7 0.0 - 0.8 12/05 [place] [facility] HEMATOLOGY Basophils 0.1 0.0 - 1.0 12/05 Normal Medical [place] HEMATOLOGY Segs-Bands # 10.5 1.5 - 8.1 12/05 [facility] HEMATOLOGY Eosinophils 0.0 0.0 - 4.0 12/05 [place] [facility] HEMATOLOGY Lymphocytes 0.7 1.0 - 5.5 12/05 [place] # /2011 Medical Center HEMATOLOGY Platelet 119 133 - 450 12/05 [facility] Medical Center HEMATOLOGY PTT 24.0 22.9 - 12/04 Normal <sup>11</sup> [place] 35[place]8 /2011 Interpretive Medical Data: Heparin Center Therapeutic Range: 57 - 92 Seconds HEMATOLOGY PT 15.0 12.0 - 12/04 [facility] 14.7 [facility] HEMATOLOGY INR 1.18 0.85 - 12/04 HI <sup>8</sup>I [place] 1.17 nterpretive Medical Data: Center RECOMMENDED RANGES FOR PROTIME INR:
2.0-3.0 for most medical and surgical thromboemboli c states.
2.5-3.5 for artificial heart valves and recurrent embolism.<br/ >
INR SHOULD BE USED ONLY FOR PATIENTS ON STABLE ANTICOAGULANT THERAPY. BACTERIAL MRSA by PCR Negative 1 12/04 Normal <sup>1</sup>I [facility] - SEROLOGY (12/05/2011 01:58:00) nterpre tive Medical Data: Center INTERPRETATIO N:
Negative..... .No MRSA DNA detected by PCR
Positive..... .MRSA DNA detected by PCR

ASSAY LIMITATIONS:< br/>
This is a screening test for colonization by MRSA. A positive
test result indicates the patient is colonized by MRSA, but
does not necessarily mean that an infection is present or that
treatmen t is necessary. Likewise, a negative test does not
exclude colonization or infection. Patients should be evaluated<br/ >clinically for symptoms and signs of infection before making
therapeu tic decisions. Routine decolonizatio n is discouraged
and should only be considered for select patients after
consulta tion with an infectious diseases specialist. CHEMISTRY Ca Ion mgdL 5.04 4. - 12/04 Normal [facility] 5. [facility] CHEMISTRY Ca Norm mgdL 5.00 4. - 12/04 Normal [facility] 5. [facility] CHEMISTRY Ca Ion 1.26 1. - 12/04 Normal [facility] 1. [facility] CHEMISTRY Ca Norm 1.25 1. - 12/04 Normal [facility] 1. [facility] CHEMISTRY Phosphorus 4.0 2.5 - 4.5 12/04 Normal [facility] CHEMISTRY Magnesium 1.9 1.8 - 2.4 12/04 Normal [facility] Medical Center CHEMISTRY Calcium Lvl 9.0 8.5 - 10.5 12/04 [place] [facility] CHEMISTRY CO2 27 24 - 32 12/04 Normal [facility] Center CHEMISTRY Chloride Lvl 104 95 - 109 12/04 Normal Medical Center CHEMISTRY Glucose Lvl 170 70 - 99 12/04 [place] <sup>7</sup>I [place] nterpretive Medical Data: Adult Center reference range values reflect the clinical guidelines
of the [place] [employer]. CHEMISTRY Sodium Lvl 144 135 - 145 12/04 Normal [facility] Center CHEMISTRY Creatinine 1.4 0.5 - 1.4 12/04 Normal [facility] Center CHEMISTRY Potassium 4.1 3.5 - 5.1 12/04 Normal [facility] Center CHEMISTRY BUN 24 7 - 22 12/04 HI [facility] CHEMISTRY AGAP 17.1 10.0 - 12/04 Normal [place] 20.0 Medical Center HEMATOLOGY Eosinophils 0.0 0.0 - 0.5 12/04 [place] [facility] HEMATOLOGY Basophils # 0.0 0.0 - 0.2 12/04 [place] [facility] HEMATOLOGY Monocytes # 0.3 0.0 - 0.8 12/04 [place] [facility] HEMATOLOGY Monocytes 3.1 2.0 - 12.0 12/04 Normal [facility] HEMATOLOGY Lymphocytes 0.7 1.0 - 5.5 12/04 [place] [facility] HEMATOLOGY Segs-Bands # 9.3 1.5 - 8.1 12/04 HI [facility] HEMATOLOGY Eosinophils 0.2 0.0 - 4.0 12/04 Normal [place] [facility] HEMATOLOGY Basophils 0.0 0.0 - 1.0 12/04 Normal Medical Center HEMATOLOGY Lymphocytes 6.5 20.0 - 12/04 LOW [place] 40.0 Medical Center HEMATOLOGY Segs 90.2 45.0 - 12/04 HI [place] 75.0 Medical Center HEMATOLOGY INR 1.15 0.85 - 12/04 Normal <sup>9</sup>[place] 1. nterpretive Medical Data: Center RECOMMENDED RANGES FOR PROTIME INR:
2.0-3.0 for most medical and surgical thromboemboli c states.
2.5-3.5 for artificial heart valves and recurrent embolism.<br/ >
INR SHOULD BE USED ONLY FOR PATIENTS ON STABLE ANTICOAGULANT THERAPY. HEMATOLOGY PT 14.7 12.0 - 12/04 Normal [place] 14.7 [facility] HEMATOLOGY PTT 24.4 22.9 - 12/04 Normal <sup>12</sup> [place] 35.[place] Interpretive Medical Data: [facility] Center Therapeutic Range: 57 - 92 Seconds HEMATOLOGY RDW 16.1 11.5 - 12/04 [facility] 14.5 [facility] HEMATOLOGY MCHC 32.8 32.0 - 12/04 Normal [place] 36.0 [facility] HEMATOLOGY WBC 10.3 3.7 - 10.4 12/04 Normal [facility] HEMATOLOGY MCV 94.1 80.0 - 12/04 [facility] [place] 94.0 [facility] HEMATOLOGY Hct 31.7 42.0 - 12/04 [facility] 54.0 [facility] HEMATOLOGY MCH 30.9 27.0 - 12/04 Normal [facility] 31.0 [facility] HEMATOLOGY MPV 7.9 7.4 - 10.4 12/04 Normal [facility] HEMATOLOGY Hgb 10.4 14.0 - 12/04 [facility] 18.0 [facility] HEMATOLOGY RBC 3.37 4.70 - 12/04 [facility] [place] 6.10 [facility] CHEMISTRY POC A Glu 138 70 - 99 12/04 [facility] CHEMISTRY POC A Na 139 135 - 145 12/04 Normal [facility] CHEMISTRY POC A K 3.5 3.5 - 5.1 12/04 Normal [facility] CHEMISTRY POC A Hct 33.0 42.0 - 12/04 [facility] [place] 54.0 [facility] CHEMISTRY POC A O2 Sat 100.0 95.0 - 12/04 [facility] [place] 100.0 [facility] CHEMISTRY POC A LA 1.6 0.5 - 2.2 12/04 Normal [facility] CHEMISTRY POC A Ca Ion 1.17 1.16 - 12/04 [facility] 1.30 Medical Center CHEMISTRY POC A BE 4 -2-2 - 2 12/04 HI Medical Center CHEMISTRY POC A HCO3 29 22 - 26 12/04 [facility] Medical Center CHEMISTRY POC A PCO2 46 35 - 45 12/04 [facility] Medical Center CHEMISTRY POC A PO2 258 80 - 100 12/04 [facility] Medical Center CHEMISTRY POC A Temp 37.0 12/04 NA Medical Center CHEMISTRY POC A Source ART 12/04 NA Medical Center CHEMISTRY POC A pH 7.41 7.35 - 12/04 Normal [place] 7. Medical Center CHEMISTRY POC A Glu 104 70 - 99 12/04 [facility] Medical Center CHEMISTRY POC A LA 1.2 0.5 - 2.2 12/04 Normal Medical Center CHEMISTRY POC A Ca Ion 1.21 1.16 - 12/04 Normal 1.30 Medical Center CHEMISTRY POC A BE 4 -2-2 - 2 12/04 [facility] Medical Center CHEMISTRY POC A Source ART 12/04 NA Medical Center CHEMISTRY POC A HCO3 29 22 - 26 12/04 [facility] Medical Center CHEMISTRY POC A PO2 299 80 - 100 12/04 [facility] Medical Center CHEMISTRY POC A PCO2 41 35 - 45 12/04 Normal Medical Center CHEMISTRY POC A Temp 37.0 12/04 NA Medical Center CHEMISTRY POC A K 3.5 3.5 - 5.1 12/04 Normal Medical Center CHEMISTRY POC A pH 7.45 .35 12/04 Normal 7. Medical Center CHEMISTRY POC A O2 Sat 100.0 95.0 - 12/04 Normal [place] 100.0 Medical Center CHEMISTRY POC A Hct 29.0 42.0 - 12/04 LOW [place] 54.0 Medical Center CHEMISTRY POC A Na 140 135 - 145 12/04 Normal Medical Center CHEMISTRY POC A Hct 31.0 42.0 - 12/04 LOW [place] 54.0 Medical Center CHEMISTRY POC A Na 137 135 - 145 12/04 Normal Medical Center CHEMISTRY POC A K 3.4 3.5 - 5.1 12/04 LOW Medical Center CHEMISTRY POC A Glu 103 70 - 99 12/04 [facility] Medical Center CHEMISTRY POC A LA 1.3 0.5 - 2.2 12/04 Normal Medical [place] CHEMISTRY POC A BE 9 -2-2 - 2 12/04 [facility] Medical Center CHEMISTRY POC A O2 Sat 100.0 95.0 - 12/04 Normal [facility] 100.0 Medical [place] CHEMISTRY POC A Ca Ion 1.22 1.16 - 12/04 Normal [facility] 1.30 Medical Center CHEMISTRY POC A Temp 37.0 12/04 NA [facility] CHEMISTRY POC A HCO3 34 22 - 26 12/04 [facility] CHEMISTRY POC A pH 7.46 7.35 - 12/04 [facility] 7.45 [facility] CHEMISTRY POC A Source ART 12/04 NA [facility] CHEMISTRY POC A PCO2 48 35 - 45 12/04 [facility] CHEMISTRY POC A PO2 267 80 - 100 12/04 [facility] Medical Center HEMATOLOGY PTT 23.5 22.9 - 12/03 Normal <sup>13</sup> [place] 35.[place] Interpretive Medical Data: [facility] Center Therapeutic Range: 57 - 92 Seconds HEMATOLOGY PT 14.0 12.0 - 12/03 Normal [facility] 14.7 Medical Center HEMATOLOGY INR 1.08 0.85 - 12/03 Normal <sup>10[place]sup> [place] 1.17 Interpretive Medical Data: Center RECOMMENDED RANGES FOR PROTIME INR:
2.0-3.0 for most medical and surgical thromboemboli c states.
2.5-3.5 for artificial heart valves and recurrent embolism.<br/ >
INR SHOULD BE USED ONLY FOR PATIENTS ON STABLE ANTICOAGULANT THERAPY. HEMATOLOGY Polychrom Slight None Seen 12/03 Normal [facility] (12/04/2011 16:00:00) Nm dical Center HEMATOLOGY Hypochrom Slight None Seen 12/03 Normal [facility] (12/04/2011 16:00:00) Nm dical Center HEMATOLOGY Target Cell Slight None Seen 12/03 [facility] [place] *ABN* Medical (12/04/2011 16:00:00) Ce nter HEMATOLOGY Elliptocyte Slight None Seen 12/03 [facility] [place] *ABN* Medical (12/04/2011 16:00:00) Ce nter HEMATOLOGY Plt Morph Normal 12/03 Normal [place] (12/04/2011 16:00:00) [facility] BLOOD BANK ABO/Rh AB POS 12/03 Unknown [place] RESULTS /2011 [facility] Center BLOOD BANK Antibody Negative 12/03 Normal [facility] RESULTS Scrn (12/04/2011 00:15:00) [facility] BLOOD BANK RBC product Product available 12/02 Normal [facility] RESULTS (12/03/2011 17:56:00) [facility] CHEMISTRY Phosphorus 2.7 2.5 - 4.5 11/30 Normal Medical Center CHEMISTRY Magnesium 1.7 1.8 - 2.4 11/30 LOW [facility] Medical Center BEDSIDE Gluc POC 158 70 - 99 08/27 [place] <sup>1</sup>I [place] TESTING Data: [place] Reportable Limit: 200 mg/dL. BEDSIDE Comment1 Notify 08/27 NA [place]/ [place] TESTING BEDSIDE Gluc POC 100 70 - 99 08/27 [place] <sup>2</sup>I [place]terpretive [place] TESTING Data: [place] Reportable Limit: 200 mg/dL. CHEMISTRY Magnesium 1.8 1.8 - 2.4 08/27 Normal [place] CHEMISTRY ALT 12 0 - 65 08/27 Normal [place] CHEMISTRY Alk Phos 36 39 - 136 08/27 LOW [place] CHEMISTRY Bili Total 0.7 0.2 - 1.3 08/27 Normal [place] CHEMISTRY AST 9 0 - 37 08/27 Normal [place] CHEMISTRY Sodium Lvl 143 135 - 145 08/27 Normal [place] CHEMISTRY Potassium 3.9 3.5 - 5.1 08/27 Normal [place] CHEMISTRY BUN 12 7 - 22 08/27 Normal [place] CHEMISTRY Creatinine 1.3 0.5 - 1.4 08/27 Normal [place] CHEMISTRY Glucose Lvl 96 70 - 99 08/27 Normal <sup>4</sup>I [place]terpret[place] Data: Adult reference range values reflect the clinical guidelines of the [place] [employer]. CHEMISTRY Calcium Lvl 8.1 8.5 - 10.5 08/27 LOW [facility] [place] CHEMISTRY Albumin Lvl 3.1 3.5 - 5.0 08/27 LOW [facility] [place] /2011 [place] CHEMISTRY Total 6.9 6.4 - 8.4 08/27 Normal [facility] [place] Protein /2011 [place] CHEMISTRY Chloride Lvl 105 95 - 109 08/27 Normal [facility] [place] /2011 [place] CHEMISTRY CO2 28 24 - 32 04 Normal MH [place] /2011 [place] CHEMISTRY AGAP 13.9 10.0 - 08/27 Normal MH [place] 20.0 [place] CHEMISTRY B/C Ratio 9 6 - 25 04 Normal [facility] [place] /2011 [place] CHEMISTRY Globulin 3.8 2.0 - 4.0 08/27 Normal [facility] [place] /2011 [place] CHEMISTRY A/G Ratio 0.8 0.7 - 1.6 08/27 Normal [place] /2011 [place] HEMATOLOGY MCH 30.9 27.0 - 08/27 Normal MH [place] 31.0 /2011 [place] HEMATOLOGY MCHC 34.1 32.0 - 08/27 Normal [place] 36.0 /2011 [place] HEMATOLOGY Hct 34.5 42.0 - 08/27 LOW [place] 54.0 /2011 [place] HEMATOLOGY Hgb 11.8 14.0 - 08/27 LOW [place] 18.0 /2011 [place] HEMATOLOGY WBC 6.0 3.7 - 10.4 08/27 Normal [place] /2011 [place] HEMATOLOGY RBC 3.81 4.70 - 08/27 LOW [place] 6.10 /2011 [place] HEMATOLOGY MPV 9.0 7.4 - 10.4 08/27 Normal [place] /2011 [place] HEMATOLOGY MCV 90.8 80.0 - 08/27 Normal [place] 94.0 /2011 [place] HEMATOLOGY RDW 13.9 11.5 - 08/27 Normal [place] 14.5 [place] HEMATOLOGY Platelet 60 133 - 450 08/27 LOW [facility] [place] HEMATOLOGY PTT 31.9 22.9 - 08/27 Normal <sup>10</sup> [place] 35.8 Interpretive [place] Data: Heparin Therapeutic Range: 57 - 92 Seconds HEMATOLOGY INR 1.78 0.85 - 08/27 [place] <sup>7</sup>I [place] 1.17 nterpretive [place] Data: RECOMMENDED RANGES FOR PROTIME INR: 2.0-3.0 for most medical and surgical thromboemboli c states. 2.5-3.5 for artificial heart valves and recurrent embolism. INR SHOULD BE USED ONLY FOR PATIENTS ON STABLE ANTICOAGULANT THERAPY. HEMATOLOGY PT 20.6 12.0 - 08/27 HI [place] 14.7 /2011 [place] HEMATOLOGY Anisocyte 1+ None Seen 08/27 ABN [place] *ABN* /2011 [place] (08/28/2011 04:26:00) HEMATOLOGY Large Plt Slight None Seen 08/27 ABN [place] *ABN* /2011 [place] (08/28/2011 04:26:00) HEMATOLOGY Basophils # 0.0 0.0 - 0.2 08/27 Normal [place] /2011 [place] HEMATOLOGY Eosinophils 0.2 0.0 - 0.5 08/27 Normal [place] # /2011 [place] HEMATOLOGY Lymphocytes 2.1 1.0 - 5.5 08/27 Normal [place] # /2011 [place] HEMATOLOGY Monocytes # 0.5 0.0 - 0.8 08/27 Normal [place] HEMATOLOGY Segs-Bands # 3.2 1.5 - 8.1 08/27 Normal [place] HEMATOLOGY Basophils 0.4 0.0 - 1.0 08/27 Normal [place] HEMATOLOGY Eosinophils 3.9 0.0 - 4.0 08/27 Normal [place] /2011 [place] HEMATOLOGY Monocytes 7.6 2.0 - 12.0 08/27 Normal [place] HEMATOLOGY Lymphocytes 34.4 20.0 - 08/27 Normal [place] 40.0 /2011 [place] HEMATOLOGY Segs 53.7 45.0 - 08/27 Normal [place] 75.0 /2011 [place] BEDSIDE Comment1 Notify 08/27 NA [place]SE RN/ /2012 [place] TESTING BEDSIDE Gluc POC 146 70 - 99 08/27 [place] <sup>3</sup>I [place]SE [place] /2011 nterpretive [place] TESTING Data: [place] Reportable Limit: 200 mg/dL. BEDSIDE Comment1 Notify 08/26 NA [place]SE RN/ /2012 [place] TESTING HEMATOLOGY Hct 33.9 42.0 - 08/26 LOW [place] 54.0 /2011 [place] HEMATOLOGY Hgb 11.5 14.0 - 08/26 LOW [place] 18.0 [place] CHEMISTRY Phosphorus 3.1 2.5 - 4.5 08/26 Normal [place] CHEMISTRY AST 14 0 - 37 04/19 Normal [facility] [place] CHEMISTRY Bili Total 0.7 0.2 - 1.3 08/26 Normal [facility] [place] /2011 [place] CHEMISTRY Calcium Lvl 8.2 8.5 - 10.5 08/26 LOW MH [place] /2011 [place] CHEMISTRY AGAP 12.7 10.0 - 08/26 Normal MH [place] 20.0 /2011 [place] CHEMISTRY CO2 29 24 - 32 08/26 Normal [facility] [place] CHEMISTRY Total 6.9 6.4 - 8.4 08/26 Normal [facility] [place] CHEMISTRY B/C Ratio 11 6 - 25 08/26 Normal [facility] [place] /2011 [place] CHEMISTRY Albumin Lvl 3.1 3.5 - 5.0 08/26 LOW [facility] [place] CHEMISTRY Alk Phos 37 39 - 136 08/26 LOW [facility] [place] CHEMISTRY ALT 13 0 - 65 08/26 Normal [facility] [place] CHEMISTRY A/G Ratio 0.8 0.7 - 1.6 08/26 Normal [facility] [place] CHEMISTRY Globulin 3.8 2.0 - 4.0 08/26 Normal [facility] [place] CHEMISTRY Glucose Lvl 98 70 - 99 08/26 Normal <sup>5</sup>I [facility] [place]terpret[place] Data: Adult reference range values reflect the clinical guidelines of the [place] [employer]. CHEMISTRY BUN 17 7 - 22 08/26 Normal [facility] [place] CHEMISTRY Creatinine 1.6 0.5 - 1.4 08/26 HI [facility] [place] CHEMISTRY Chloride Lvl 103 95 - 109 08/26 Normal [facility] [place] CHEMISTRY Potassium 3.7 3.5 - 5.1 08/26 Normal [facility] [place] CHEMISTRY Sodium Lvl 141 135 - 145 08/26 Normal [facility] [place] CHEMISTRY Magnesium 1.8 1.8 - 2.4 08/26 Normal [facility] [place] CHEMISTRY CHD Risk 3.93 4.00 - 08/26 LOW MH [place] 7.30 /2011 [place] CHEMISTRY LDL 52 0 - 129 08/26 Normal [facility] [place] CHEMISTRY Trig 152 0 - 200 08/26 Normal [facility] [place] CHEMISTRY HDL 28 >=35 04 LOW [facility] [place] CHEMISTRY Chol 110 120 - 200 08/26 LOW [facility] [place] HEMATOLOGY PTT 32.0 22.9 - 08/26 Normal <sup>11</sup> [place] 35.8 /2012 Interpretive [place] Data: Heparin Therapeutic Range: 57 - 92 Seconds HEMATOLOGY PT 20.7 12.0 - 04 [place] 14.7 /2011 [place] HEMATOLOGY INR 1.79 0.85 - 08/26 [place] <sup>8</sup>I [place] 1.17 nterpretive [place] Data: RECOMMENDED RANGES FOR PROTIME INR: 2.0-3.0 for most medical and surgical thromboemboli c states. 2.5-3.5 for artificial heart valves and recurrent embolism. INR SHOULD BE USED ONLY FOR PATIENTS ON STABLE ANTICOAGULANT THERAPY. HEMATOLOGY RDW 13.7 11.5 - 08/26 Normal [place] 14.5 /2011 [place] HEMATOLOGY Platelet 55 133 - 450 08/26 LOW [place] /2011 [place] HEMATOLOGY MPV 9.1 7.4 - 10.4 08/26 Normal [place] /2011 [place] HEMATOLOGY MCHC 34.1 32.0 - 08/26 Normal [place] 36.0 /2011 [place] HEMATOLOGY Hct 34.7 42.0 - 08/26 LOW [place] 54.0 /2011 [place] HEMATOLOGY MCV 91.3 80.0 - 08/26 Normal [place] 94.0 /2011 [place] HEMATOLOGY Hgb 11.8 14.0 - 08/26 LOW [place] 18.0 /2011 [place] HEMATOLOGY MCH 31.1 27.0 - 08/26 [facility] [place] 31.0 /2011 [place] HEMATOLOGY WBC 6.4 3.7 - 10.4 08/26 Normal [place] /2011 [place] HEMATOLOGY RBC 3.80 4.70 - 08/26 LOW [place] 6.10 /2011 [place] HEMATOLOGY Lymphocytes 2.8 1.0 - 5.5 08/26 Normal [place] # /2011 [place] HEMATOLOGY Eosinophils 0.2 0.0 - 0.5 08/26 Normal [place] # /2011 [place] HEMATOLOGY Basophils # 0.0 0.0 - 0.2 08/26 Normal [place] /2011 [place] HEMATOLOGY Monocytes # 0.5 0.0 - 0.8 08/26 Normal [place] /2011 [place] HEMATOLOGY Eosinophils 3.3 0.0 - 4.0 08/26 Normal [place] /2011 [place] HEMATOLOGY Basophils 0.3 0.0 - 1.0 08/26 Normal [place] /2011 [place] HEMATOLOGY Segs-Bands # 2.9 1.5 - 8.1 08/26 Normal MH [place] /2011 [place] HEMATOLOGY Monocytes 7.1 2.0 - 12.0 08/26 Normal MH [place] /2011 [place] HEMATOLOGY Segs 45.8 45.0 - 08/26 Normal MH [place] 75.0 /2011 [place] HEMATOLOGY Lymphocytes 43.5 20.0 - 08/26 HI MH [place] 40.0 /2011 [place] CHEMISTRY Phosphorus 2.5 2.5 - 4.5 08/26 Normal MH [place] /2011 [place] CHEMISTRY Magnesium 1.7 1.8 - 2.4 08/26 LOW MH [place] Lvl /2011 [place] CHEMISTRY AST 11 0 - 37 08/26 Normal MH [place] /2011 [place] CHEMISTRY Bili Total 0.6 0.2 - 1.3 08/26 Normal [place] CHEMISTRY Alk Phos 38 39 - 136 08/26 LOW MH [place] CHEMISTRY ALT 14 0 - 65 08/26 Normal [place] CHEMISTRY Albumin Lvl 3.4 3.5 - 5.0 08/26 LOW MH [place] /2011 [place] CHEMISTRY Glucose Lvl 143 70 - 99 08/26 HI <sup>6</sup>I MH S nterpretive [place] Data: Adult reference range values reflect the clinical guidelines of the [place] [employer]. CHEMISTRY Creatinine 1.7 0.5 - 1.4 08/26 HI [place] L[place] CHEMISTRY Chloride Lvl 102 95 - 109 08/26 Normal [place] CHEMISTRY BUN 20 7 - 22 08/26 Normal [place] CHEMISTRY Potassium 3.5 3.5 - 5.1 08/26 Normal [place] CHEMISTRY Sodium Lvl 139 135 - 145 08/26 Normal [place] CHEMISTRY Total 7.6 6.4 - 8.4 08/26 Normal MH [place] CHEMISTRY Calcium Lvl 8.7 8.5 - 10.5 08/26 Normal [place] /2011 [place] CHEMISTRY CO2 28 24 - 32 08/26 Normal [place] CHEMISTRY A/G Ratio 0.8 0.7 - 1.6 08/26 Normal [place] CHEMISTRY Globulin 4.2 2.0 - 4.0 08/26 HI MH [place] /2011 [place] CHEMISTRY B/C Ratio 12 6 - 25 08/26 Normal [place] CHEMISTRY AGAP 12.5 10.0 - 08/26 Normal [place] 20.0 /2011 [place] HEMATOLOGY INR 1.82 0.85 - 08/26 HI <sup>9</sup>I [place] 1.17 nterpretive [place] Data: RECOMMENDED RANGES FOR PROTIME INR: 2.0-3.0 for most medical and surgical thromboemboli c states. 2.5-3.5 for artificial heart valves and recurrent embolism. INR SHOULD BE USED ONLY FOR PATIENTS ON STABLE ANTICOAGULANT THERAPY. HEMATOLOGY PT 20.9 12.0 - 08/26 [facility] [place] 14.7 /2011 [place] HEMATOLOGY PTT 32.2 22.9 - 08/26 Normal <sup>12</sup> [place] 35.8 /2011 Interpretive [place] Data: Heparin Therapeutic Range: 57 - 92 Seconds HEMATOLOGY WBC 7.3 3.7 - 10.4 08/26 Normal [place] /2011 [place] HEMATOLOGY Platelet 59 133 - 450 08/26 LOW [place] /2011 [place] HEMATOLOGY RDW 14.1 11.5 - 08/26 Normal [place] 14.5 /2011 [place] HEMATOLOGY MCHC 33.8 32.0 - 08/26 Normal [place] 36.0 /2011 [place] HEMATOLOGY MPV 9.3 7.4 - 10.4 08/26 Normal [place] /2011 [place] HEMATOLOGY RBC 3.95 4.70 - 08/26 LOW [place] 6.10 /2011 [place] HEMATOLOGY MCH 31.1 27.0 - 08/26 [facility] [place] 31.0 /2011 [place] HEMATOLOGY MCV 91.8 80.0 - 08/26 Normal [place] 94.0 /2011 [place] HEMATOLOGY Segs-Bands # 4.2 1.5 - 8.1 08/26 Normal [place] /2011 [place] HEMATOLOGY Eosinophils 0.1 0.0 - 0.5 08/26 Normal [place] # /2011 [place] HEMATOLOGY Lymphocytes 2.5 1.0 - 5.5 08/26 Normal [place] # /2011 [place] HEMATOLOGY Monocytes # 0.4 0.0 - 0.8 08/26 Normal [place] /2011 [place] HEMATOLOGY Large Plt Slight None Seen 08/26 ABN [place] *ABN* /2011 [place] (08/26/2011 20:25:00) HEMATOLOGY Basophils # 0.0 0.0 - 0.2 08/26 Normal [place] /2011 [place] HEMATOLOGY Monocytes 4.9 2.0 - 12.0 08/26 Normal [place] /2011 [place] HEMATOLOGY Basophils 0.5 0.0 - 1.0 08/26 Normal [place] /2011 [place] HEMATOLOGY Eosinophils 2.0 0.0 - 4.0 08/26 Normal [place] /2011 [facility] HEMATOLOGY Lymphocytes 34.5 20.0 - 08/26 Normal [place] 40.0 /2011 [facility] HEMATOLOGY Segs 58.1 45.0 - 08/26 Normal [place] 75.0 /2011 [facility] HEMATOLOGY RBC Morph Normal 08/26 Normal [place] (08/26/2011 20:25:00) [place] Gluc POC 105 65 - 110 07/07 Normal <sup>1</sup>I GLUCOSE [place] /2011 nterpretive [facility] TESTING Data: Upper Reportable Limit: 200 mg/dL. BEDSIDE Comment1 Notify 07/07 NA GLUCOSE RN/MD [facility] TESTING CHEMISTRY Hgb A1C 6.2 07/07 NA <sup>9</sup>I nterpretive [facility] Data: HbA1C% eAG(mg/dL) Interpretatio n 6.0 126 Very good control 6.5 140 Very good control 7.0 154 Good Control 7.5 169 Good Control 8.0 183 Marginal Control, take action to lower 8.5 197 Marginal Control, take action to lower 9.0 212 Poor Control, take action to lower 9.5 226 Poor Control, take action to lower 10.0 240 Poor Control, take action to lower CHEMISTRY AGAP 16.6 10.0 - 07/07 Normal 20.0 [facility] CHEMISTRY Calcium Lvl 9.0 8.5 - 10.5 07/07 Normal [facility] CHEMISTRY Creatinine 1.0 0.5 - 1.4 07/07 Normal Lvl [facility] CHEMISTRY BUN 21 7 - 22 07/07 Normal [facility] CHEMISTRY Potassium 4.6 3.5 - 5.1 07/07 Normal <sup>4</sup>R Lvl esult [facility] Comment: Specimen Moderately Hemolyzed. CHEMISTRY Sodium Lvl 139 135 - 145 07/07 Normal [facility] CHEMISTRY Glucose Lvl 100 07/07 NA <sup>5</sup>I nterpretive [facility] Data: Reference Ranges : 0 - 7 days : 41 - 90 mg/dL 7 days - 150 yrs : 70 - 99 mg/dL (fasting), based on the clinical recommendatio ns of the [place] [employer]. CHEMISTRY Chloride Lvl 100 95 - 109 07/07 Normal /2011 [facility] CHEMISTRY CO2 27 24 - 32 07/07 Normal /2011 [facility] HEMATOLOGY MPV 9.4 7.4 - 10.4 07/07 Normal /2011 [facility] HEMATOLOGY Platelet 49 133 - 450 07/07 LOW MH /2011 [facility] HEMATOLOGY MCHC 33.1 32.0 - 07/07 Normal MH 36.0 /2011 [facility] HEMATOLOGY RDW 14.4 11.5 - 07/07 Normal MH 14.5 /2011 [facility] HEMATOLOGY Hct 39.9 42.0 - 07/07 LOW MH 54.0 /2011 [facility] HEMATOLOGY WBC 6.3 3.7 - 10.4 07/07 Normal /2011 [facility] HEMATOLOGY RBC 4.26 4.70 - 07/07 LOW MH 6.10 /2011 [facility] HEMATOLOGY Hgb 13.2 14.0 - 07/07 LOW MH 18.0 /2011 [facility] HEMATOLOGY MCV 93.7 80.0 - 07/07 Normal MH 94.0 /2011 [facility] HEMATOLOGY MCH 31.0 27.0 - 07/07 Normal MH 31.0 [facility] HEMATOLOGY Large Plt Slight None Seen 07/07 ABN MH *ABN* /2011 [facility] (07/07/2011 07:00:00) HEMATOLOGY Elliptocyte Slight None Seen 07/07 ABN MH *ABN* /2011 [facility] (07/07/2011 07:00:00) HEMATOLOGY Polychrom Slight None Seen 07/07 Normal MH (07/07/2011 07:00:00) /2011 [facility] HEMATOLOGY Basophils # 0.0 0.0 - 0.2 07/07 Normal [facility] HEMATOLOGY Eosinophils 0.2 0.0 - 0.5 07/07 Normal MH # /2011 [facility] HEMATOLOGY Segs-Bands # 3.4 1.5 - 8.1 07/07 Normal /2011 [facility] HEMATOLOGY Basophils 0.4 0.0 - 1.0 07/07 Normal /2011 [facility] HEMATOLOGY Monocytes # 0.4 0.0 - 0.8 07/07 Normal /2011 [facility] HEMATOLOGY Lymphocytes 2.3 1.0 - 5.5 07/07 Normal MH # /2011 [facility] HEMATOLOGY Eosinophils 3.1 0.0 - 4.0 07/07 Normal [facility] HEMATOLOGY Monocytes 5.8 2.0 - 12.0 07/07 Normal [facility] HEMATOLOGY Lymphocytes 36.1 20.0 - 07/07 Normal MH 40.0 /2011 [facility] HEMATOLOGY Segs 54.6 45.0 - 07/07 Normal MH 75.0 /2011 [facility] BEDSIDE Gluc POC 109 65 - 110 07/07 Normal <sup>2</sup>I GLUCOSE [facility] /2011 nterpretive [facility] TESTING Data: Upper Reportable Limit: 200 mg/dL. BEDSIDE Comment1 Notify 07/07 NA GLUCOSE RN/ /2011 [facility] TESTING BEDSIDE Comment1 Notify 07/06 NA GLUCOSE RN/MD /2011 [facility] TESTING BEDSIDE Gluc POC 86 65 - 110 07/06 Normal <sup>3</sup>I GLUCOSE [facility] /2011 nterpretive [facility] TESTING Data: Upper Reportable Limit: 200 mg/dL. CHEMISTRY TSH 2.680 0.360 - 07/06 Normal MH 3.740 /2011 [facility] CHEMISTRY CHD Risk 2.64 4.00 - 07/06 LOW MH 7.30 [facility] CHEMISTRY LDL 44 0 - 129 07/06 Normal [facility] CHEMISTRY HDL 39 >=35 07/06 Normal [facility] CHEMISTRY Trig 100 0 - 200 07/06 Normal [facility] CHEMISTRY Chol 103 120 - 200 07/06 LOW /2011 [facility] CHEMISTRY Total 7.3 6.4 - 8.4 07/06 Normal MH [facility] CHEMISTRY Albumin Lvl 3.7 3.5 - 5.0 07/06 Normal [facility] CHEMISTRY Alk Phos 51 39 - 136 07/06 Normal [facility] CHEMISTRY ALT 16 0 - 65 07/06 Normal [facility] CHEMISTRY Globulin 3.6 2.0 - 4.0 07/06 Normal [facility] CHEMISTRY A/G Ratio 1.0 0.7 - 1.6 07/06 Normal [facility] CHEMISTRY AST 12 0 - 37 07/06 Normal [facility] CHEMISTRY Bili Total 0.4 0.2 - 1.3 07/06 Normal [facility] CHEMISTRY Calcium Lvl 8.8 8.5 - 10.5 07/06 Normal [facility] CHEMISTRY AGAP 13.5 10.0 - 07/06 Normal MH 20.0 /2011 [facility] CHEMISTRY B/C Ratio 17 6 - 25 07/06 Normal [facility] CHEMISTRY BUN 20 7 - 22 07/06 Normal [facility] CHEMISTRY Glucose Lvl 149 07/06 NA <sup>6</sup>I nterpretive [facility] Data: Reference Ranges : 0 - 7 days : 41 - 90 mg/dL 7 days - 150 yrs : 70 - 99 mg/dL (fasting), based on the clinical recommendatio ns of the [place] [employer]. CHEMISTRY CO2 28 24 - 32 07/06 Normal [facility] CHEMISTRY Creatinine 1.2 0.5 - 1.4 07/06 Normal MH Lvl /2011 [facility] CHEMISTRY Potassium 3.5 3.5 - 5.1 07/06 Normal MH Lvl /2011 [facility] CHEMISTRY Chloride Lvl 103 95 - 109 07/06 Normal [facility] CHEMISTRY Sodium Lvl 141 135 - 145 07/06 Normal [facility] CHEMISTRY CK MB Index 0.9 0.0 - 2.5 07/06 Normal [facility] CHEMISTRY Troponin-I 0.19 0.00 - 07/06 Normal MH 0.40 [facility] CHEMISTRY CK MB 0.7 0.5 - 3.6 07/06 Normal [facility] CHEMISTRY Total CK 75 12 - 191 07/06 Normal [facility] HEMATOLOGY MCV 93.0 80.0 - 07/06 Normal MH 94.0 /2011 [facility] HEMATOLOGY MCHC 33.8 32.0 - 07/06 Normal MH 36.0 /2011 [facility] HEMATOLOGY MCH 31.4 27.0 - 07/06 HI MH 31.0 /2011 [facility] HEMATOLOGY Hgb 12.4 14.0 - 07/06 LOW MH 18.0 /2011 [facility] HEMATOLOGY Hct 36.7 42.0 - 07/06 LOW MH 54.0 /2011 [facility] HEMATOLOGY MPV 9.7 7.4 - 10.4 07/06 Normal /2011 [facility] HEMATOLOGY RDW 14.1 11.5 - 07/06 Normal MH 14.5 /2011 [facility] HEMATOLOGY Platelet 46 133 - 450 07/06 LOW MH /2011 [facility] HEMATOLOGY WBC 5.9 3.7 - 10.4 07/06 Normal MH [facility] HEMATOLOGY RBC 3.94 4.70 - 07/06 LOW MH 6.10 /2011 [facility] HEMATOLOGY Elliptocyte Slight None Seen 07/06 ABN MH *ABN* /2011 [facility] (07/06/2011 05:45:00) HEMATOLOGY Tear Cell Slight None Seen 07/06 ABN MH *ABN* /2011 [facility] (07/06/2011 05:45:00) HEMATOLOGY Large Plt Slight None Seen 07/06 ABN MH *ABN* /2011 [facility] (07/06/2011 05:45:00) HEMATOLOGY Target Cell Slight None Seen 07/06 ABN MH *ABN* /2011 [facility] (07/06/2011 05:45:00) HEMATOLOGY Polychrom Slight None Seen 07/06 Normal (07/06/2011 05:45:00) /2011 [facility] HEMATOLOGY Metamyelocyt 1.0 0.0 - 1.0 07/06 Normal es /2011 [facility] HEMATOLOGY Myelocytes 1.0 <=0.0 07/06 HI /2011 [facility] HEMATOLOGY Eosinophils 5.0 0.0 - 4.0 07/06 HI /2011 [facility] HEMATOLOGY Atypical 4.0 <=0.0 07/06 [facility] Lymphs /2011 [facility] HEMATOLOGY Segs 48.0 45.0 - 07/06 Normal 75.0 /2011 [facility] HEMATOLOGY Lymphocytes 2.5 1.0 - 5.5 07/06 Normal # /2011 [facility] HEMATOLOGY Eosinophils 0.3 0.0 - 0.5 07/06 Normal # /2011 [facility] HEMATOLOGY Monocytes # 0.1 0.0 - 0.8 07/06 Normal [facility] HEMATOLOGY Bands 0.0 0.0 - 11.0 07/06 Normal /2011 [facility] HEMATOLOGY Lymphocytes 39.0 20.0 - 07/06 Normal 40.0 [facility] HEMATOLOGY Monocytes 2.0 2.0 - 12.0 07/06 Normal [facility] HEMATOLOGY Segs-Bands # 2.8 1.5 - 8.1 07/06 Normal [facility] CHEMISTRY BNP 125 <=100 07/06 HI <sup>8</sup>I nterpretive [facility] Data: Elevated results are in line with increasing severity of congestive heart failure. Minor elevations between 100 and 300 may be seen with Myocardial Ischemia, Sodium retaining drugs, and compensated/t reated heart failure. CHEMISTRY CK MB 0.5 0.5 - 3.6 07/06 Normal [facility] CHEMISTRY Troponin-I 0.18 0.00 - 07/06 Normal 0.40 [facility] CHEMISTRY Total CK 79 12 - 191 07/06 Normal [facility] CHEMISTRY A/G Ratio 0.8 0.7 - 1.6 07/06 Normal [facility] CHEMISTRY Globulin 4.4 2.0 - 4.0 07/06 HI [facility] CHEMISTRY Bili Total 0.4 0.2 - 1.3 07/06 Normal [facility] CHEMISTRY AST 14 0 - 37 02/27 Normal [facility] CHEMISTRY AGAP 8.8 10.0 - 07/06 LOW MH 20.0 /2011 [facility] CHEMISTRY B/C Ratio 14 6 - 25 07/06 Normal [facility] CHEMISTRY CO2 33 24 - 32 07/06 HI [facility] CHEMISTRY Creatinine 1.4 0.5 - 1.4 07/06 Normal Lvl [facility] CHEMISTRY Sodium Lvl 139 135 - 145 07/06 Normal [facility] CHEMISTRY Potassium 3.8 3.5 - 5.1 07/06 Normal Lvl [facility] CHEMISTRY Chloride Lvl 101 95 - 109 07/06 Normal [facility] CHEMISTRY ALT 18 0 - 65 07/06 Normal [facility] CHEMISTRY Alk Phos 54 39 - 136 07/06 Normal [facility] CHEMISTRY Calcium Lvl 8.9 8.5 - 10.5 07/06 Normal [facility] CHEMISTRY Total 8.1 6.4 - 8.4 07/06 Normal Protein [facility] CHEMISTRY Albumin Lvl 3.7 3.5 - 5.0 07/06 Normal [facility] CHEMISTRY BUN 20 7 - 22 07/06 Normal [facility] CHEMISTRY Glucose Lvl 107 07/06 NA <sup>7</sup>I nterpretive [facility] Data: Reference Ranges : 0 - 7 days : 41 - 90 mg/dL 7 days - 150 yrs : 70 - 99 mg/dL (fasting), based on the clinical recommendatio ns of the [place] [employer]. CHEMISTRY CK MB Index 0.6 0.0 - 2.5 07/06 Normal [facility] HEMATOLOGY PTT 27.8 22.9 - 07/06 Normal <sup>11</sup> MH 35.8 /2011 Interpretive [facility] Data: Heparin Therapeutic Range: 57 - 92 Seconds HEMATOLOGY PT 17.7 12.0 - 07/06 HI MH 14.7 [facility] HEMATOLOGY INR 1.46 0.85 - 07/06 HI <sup>10</sup> 1.17 Interpretive [facility] Data: RECOMMENDED RANGES FOR PROTIME INR: 2.0-3.0 for most medical and surgical thromboemboli c states. 2.5-3.5 for artificial heart valves and recurrent embolism. INR SHOULD BE USED ONLY FOR PATIENTS ON STABLE ANTICOAGULANT THERAPY. HEMATOLOGY RBC 4.11 4.70 - 07/06 LOW MH 6.10 /2011 [facility] HEMATOLOGY Platelet 49 133 - 450 07/06 LOW MH /2011 [facility] HEMATOLOGY MPV 9.1 7.4 - 10.4 07/06 Normal MH /2011 [facility] HEMATOLOGY RDW 14.1 11.5 - 07/06 Normal MH 14.5 /2011 [facility] HEMATOLOGY WBC 5.5 3.7 - 10.4 07/06 Normal MH /2011 [facility] HEMATOLOGY Hct 37.2 42.0 - 07/06 LOW MH 54.0 /2011 [facility] HEMATOLOGY MCV 90.5 80.0 - 07/06 Normal MH 94.0 /2011 [facility] HEMATOLOGY MCH 30.8 27.0 - 07/06 Normal MH 31.0 /2011 [facility] HEMATOLOGY MCHC 34.0 32.0 - 07/06 Normal MH 36.0 /2011 [facility] HEMATOLOGY Hgb 12.6 14.0 - 07/06 LOW MH 18.0 /2011 [facility] HEMATOLOGY Segs-Bands # 2.0 1.5 - 8.1 07/06 Normal /2011 [facility] HEMATOLOGY Monocytes # 0.4 0.0 - 0.8 07/06 Normal MH /2011 [facility] HEMATOLOGY Tear Cell Slight None Seen 07/06 ABN MH *ABN* /2011 [facility] (07/05/2011 21:56:00) HEMATOLOGY Eosinophils 0.1 0.0 - 0.5 07/06 Normal MH # /2011 [facility] HEMATOLOGY Segs 36.0 45.0 - 07/06 LOW MH 75.0 /2011 [facility] HEMATOLOGY Basophils # 0.1 0.0 - 0.2 07/06 Normal /2011 [facility] HEMATOLOGY Lymphocytes 3.0 1.0 - 5.5 07/06 Normal MH # /2011 [facility] HEMATOLOGY Lymphocytes 54.0 20.0 - 07/06 HI MH 40.0 /2011 [facility] HEMATOLOGY Bands 0.0 0.0 - 11.0 07/06 Normal MH /2011 [facility] HEMATOLOGY Monocytes 7.0 2.0 - 12.0 07/06 Normal MH /2011 [facility] HEMATOLOGY Eosinophils 2.0 0.0 - 4.0 07/06 Normal MH /2011 [facility] HEMATOLOGY Basophils 1.0 0.0 - 1.0 07/06 Normal /2011 [facility] HEMATOLOGY Atypical 0.0 <=0.0 07/06 Normal MH Lymphs /2011 [facility] HEMATOLOGY NRBC 2 07/06 NA MH /2011 [facility] HEMATOLOGY Plt Morph Normal 07/06 Normal (07/05/2011 21:56:00) /2011 [facility] BEDSIDE Comment1 Notify 05/05 NA GLUCOSE RN/ /2010 [facility] TESTING BEDSIDE Gluc POC 147 65 - 110 05/05 HI <sup>2</sup>I GLUCOSE [facility] /2010 nterpretive [facility] TESTING Data: Upper Reportable Limit: 200 mg/dL. BEDSIDE Gluc POC 114 65 - 110 05/05 HI <sup>3</sup>I GLUCOSE [facility] /2010 nterpretive [facility] TESTING Data: Upper Reportable Limit: 200 mg/dL. BEDSIDE Comment1 Notify 05/05 NA GLUCOSE RN/ /2010 [facility] TESTING CHEMISTRY Magnesium 2.1 1.8 - 2.4 05/05 Normal Lvl [facility] CHEMISTRY AGAP 10.4 10.0 - 05/05 Normal 20.0 [facility] CHEMISTRY CO2 29 24 - 32 05/05 Normal [facility] CHEMISTRY Calcium Lvl 8.2 8.5 - 10.5 05/05 LOW [facility] CHEMISTRY Sodium Lvl 141 135 - 145 05/05 Normal [facility] CHEMISTRY Chloride Lvl 106 95 - 109 05/05 Normal [facility] CHEMISTRY Potassium 4.4 3.5 - 5.1 05/05 Normal [facility] CHEMISTRY Creatinine 1.2 0.5 - 1.4 05/05 Normal Lvl [facility] CHEMISTRY Glucose Lvl 86 05/05 NA <sup>5</sup>I nterpretive [facility] Data: Reference Ranges : 0 - 7 days : 41 - 90 mg/dL 7 days - 150 yrs : 70 - 99 mg/dL (fasting), based on the clinical recommendatio ns of the [place] [employer]. CHEMISTRY BUN 25 7 - 22 05/05 HI [facility] CHEMISTRY LDL 89 0 - 129 05/05 Normal [facility] CHEMISTRY HDL 42 >=35 05/05 Normal [facility] CHEMISTRY Chol 154 120 - 200 05/05 Normal [facility] CHEMISTRY Trig 117 0 - 200 05/05 Normal [facility] CHEMISTRY CHD Risk 3.67 4.00 - 05/05 LOW 7.30 /2010 [facility] CHEMISTRY Phosphorus 2.5 2.5 - 4.5 05/05 Normal [facility] HEMATOLOGY PTT 44.8 22.9 - 05/05 HI <sup>14</sup> MH 35.8 /2010 Interpretive [facility] Data: Heparin Therapeutic Range: 57 - 92 Seconds HEMATOLOGY PT 21.1 12.0 - 05/05 HI 14.7 /2010 [facility] HEMATOLOGY INR 1.84 0.85 - 05/05 HI <sup>11</sup> 1.17 Interpretive [facility] Data: RECOMMENDED RANGES FOR PROTIME INR: 2.0-3.0 for most medical and surgical thromboemboli c states. 2.5-3.5 for artificial heart valves and recurrent embolism. INR SHOULD BE USED ONLY FOR PATIENTS ON STABLE ANTICOAGULANT THERAPY. HEMATOLOGY MCH 31.5 27.0 - 05/05 HI MH 31.0 /2010 [facility] HEMATOLOGY MPV 9.7 7.4 - 10.4 05/05 Normal /2010 [facility] HEMATOLOGY MCHC 34.0 32.0 - 05/05 Normal 36.0 [facility] HEMATOLOGY Platelet 48 133 - 450 05/05 LOW MH /2010 [facility] HEMATOLOGY Hgb 12.5 14.0 - 05/05 LOW 18.0 [facility] HEMATOLOGY WBC 4.3 3.7 - 10.4 05/05 Normal [facility] HEMATOLOGY RBC 3.97 4.70 - 05/05 LOW 6.10 [facility] HEMATOLOGY Hct 36.7 42.0 - 05/05 LOW 54.0 [facility] HEMATOLOGY MCV 92.5 80.0 - 05/05 Normal 94.0 [facility] HEMATOLOGY RDW 15.1 11.5 - 05/05 HI 14.5 [facility] HEMATOLOGY Elliptocyte Slight None Seen 05/05 ABN *ABN* /2010 [facility] (05/05/2011 05:00:00) HEMATOLOGY Large Plt Slight None Seen 05/05 ABN *ABN* /2010 [facility] (05/05/2011 05:00:00) HEMATOLOGY Atypical 0.0 <=0.0 05/05 Normal Lymphs /2010 [facility] HEMATOLOGY Basophils 0.0 0.0 - 1.0 05/05 Normal /2010 [facility] HEMATOLOGY Lymphocytes 51.0 20.0 - 05/05 HI 40.0 [facility] HEMATOLOGY Bands 0.0 0.0 - 11.0 05/05 Normal MH /2010 [facility] HEMATOLOGY Segs 42.0 45.0 - 05/05 LOW 75.0 [facility] HEMATOLOGY Eosinophils 0.1 0.0 - 0.5 05/05 Normal MH # /2010 [facility] HEMATOLOGY Monocytes # 0.2 0.0 - 0.8 05/05 Normal [facility] HEMATOLOGY Lymphocytes 2.2 1.0 - 5.5 05/05 Normal # /2010 [facility] HEMATOLOGY Segs-Bands # 1.8 1.5 - 8.1 05/05 Normal /2010 [facility] HEMATOLOGY Eosinophils 2.0 0.0 - 4.0 05/05 Normal [facility] HEMATOLOGY Monocytes 5.0 2.0 - 12.0 05/05 Normal /2010 [facility] BEDSIDE Gluc POC 204 65 - 110 05/05 HI <sup>4</sup>I GLUCOSE [facility] /2010 nterpretive [facility] TESTING Data: Upper Reportable Limit: 200 mg/dL. BEDSIDE Comment1 Assess 05/05 NA GLUCOSE [facility] TESTING HEMATOLOGY Basophils # 0.0 0.0 - 0.2 05/04 Normal [facility] HEMATOLOGY Eosinophils 0.1 0.0 - 0.5 05/04 Normal [facility] HEMATOLOGY Monocytes 6.1 2.0 - 12.0 05/04 Normal [facility] HEMATOLOGY Segs 33.5 45.0 - 05/04 LOW MH 75.0 [facility] HEMATOLOGY Lymphocytes 56.9 20.0 - 05/04 HI 40.0 [facility] HEMATOLOGY Segs-Bands # 1.5 1.5 - 8.1 05/04 Normal [facility] HEMATOLOGY Lymphocytes 2.6 1.0 - 5.5 05/04 Normal [facility] HEMATOLOGY Monocytes # 0.3 0.0 - 0.8 05/04 Normal [facility] HEMATOLOGY Eosinophils 2.9 0.0 - 4.0 05/04 Normal [facility] HEMATOLOGY Basophils 0.6 0.0 - 1.0 05/04 Normal [facility] HEMATOLOGY PTT 43.4 22.9 - 05/04 HI <sup>15</sup> 35.8 Interpretive [facility] Data: Heparin Therapeutic Range: 57 - 92 Seconds HEMATOLOGY PT 18.2 12.0 - 05/04 HI MH 14.7 /2010 [facility] HEMATOLOGY INR 1.52 0.85 - 05/04 HI <sup>12</sup> 1.17 /2010 Interpretive [facility] Data: RECOMMENDED RANGES FOR PROTIME INR: 2.0-3.0 for most medical and surgical thromboemboli c states. 2.5-3.5 for artificial heart valves and recurrent embolism. INR SHOULD BE USED ONLY FOR PATIENTS ON STABLE ANTICOAGULANT THERAPY. HEMATOLOGY MPV 9.8 7.4 - 10.4 05/04 Normal MH /2010 [facility] HEMATOLOGY MCHC 34.2 32.0 - 05/04 Normal 36.0 /2010 [facility] HEMATOLOGY RDW 15.0 11.5 - 05/04 HI MH 14. [facility] HEMATOLOGY Platelet 51 133 - 450 05/04 LOW MH /2010 [facility] HEMATOLOGY RBC 4.06 4.70 - 05/04 LOW MH 6.10 [facility] HEMATOLOGY Hgb 12.6 14.0 - 05/04 LOW MH 18.0 /2010 [facility] HEMATOLOGY MCH 31.2 27.0 - 05/04 HI MH 31.0 [facility] HEMATOLOGY WBC 4.5 3.7 - 10.4 05/04 Normal MH /2010 [facility] HEMATOLOGY Hct 37.0 42.0 - 05/04 LOW 54.0 [facility] HEMATOLOGY MCV 91.1 80.0 - 05/04 Normal 94.0 [facility] HEMATOLOGY INR 1.41 0.85 - 05/03 HI <sup>13</sup> 1.17 /2010 Interpretive [facility] Data: RECOMMENDED RANGES FOR PROTIME INR: 2.0-3.0 for most medical and surgical thromboemboli c states. 2.5-3.5 for artificial heart valves and recurrent embolism. INR SHOULD BE USED ONLY FOR PATIENTS ON STABLE ANTICOAGULANT THERAPY. HEMATOLOGY PT 17.2 12.0 - 05/03 HI MH 14. [facility] HEMATOLOGY PTT 37.6 22.9 - 05/03 HI <sup>16</sup> 35.8 /2010 Interpretive [facility] Data: Heparin Therapeutic Range: 57 - 92 Seconds HEMATOLOGY MPV 10.0 7.4 - 10.4 05/03 Normal MH /2010 [facility] HEMATOLOGY Platelet 66 133 - 450 05/03 LOW MH /2010 [facility] HEMATOLOGY MCV 91.6 80.0 - 05/03 Normal 94.0 /2010 [facility] HEMATOLOGY MCH 31.3 27.0 - 05/03 HI MH 31.0 [facility] HEMATOLOGY MCHC 34.2 32.0 - 05/03 Normal MH 36.0 /2010 [facility] HEMATOLOGY RDW 15.4 11.5 - 05/03 HI 14. [facility] HEMATOLOGY Hct 38.7 42.0 - 05/03 LOW 54.0 [facility] HEMATOLOGY WBC 4.8 3.7 - 10.4 05/03 Normal MH /2011 [facility] HEMATOLOGY RBC 4.23 4.70 - 05/03 LOW MH 6. [facility] HEMATOLOGY Hgb 13.2 14.0 - 05/03 LOW MH 18.0 [facility] HEMATOLOGY Elliptocyte Slight None Seen 05/03 ABN MH *ABN* [facility] (05/03/2011 04:40:00) HEMATOLOGY Basophils 0.0 0.0 - 1.0 05/03 Normal [facility] HEMATOLOGY Large Plt Slight None Seen 05/03 ABN MH *ABN* /2010 [facility] (05/03/2011 04:40:00) HEMATOLOGY Atypical 2.0 <=0.0 05/03 HI MH Lymphs [facility] HEMATOLOGY Eosinophils 6.0 0.0 - 4.0 05/03 HI MH [facility] HEMATOLOGY Monocytes 4.0 2.0 - 12.0 05/03 Normal [facility] HEMATOLOGY Bands 1.0 0.0 - 11.0 05/03 Normal [facility] HEMATOLOGY Eosinophils 0.3 0.0 - 0.5 05/03 Normal MH # [facility] HEMATOLOGY Lymphocytes 54.0 20.0 - 05/03 HI MH 40.0 [facility] HEMATOLOGY Segs 33.0 45.0 - 05/03 LOW MH 75.0 [facility] HEMATOLOGY Monocytes # 0.2 0.0 - 0.8 05/03 Normal MH [facility] HEMATOLOGY Lymphocytes 2.7 1.0 - 5.5 05/03 Normal MH [facility] HEMATOLOGY Segs-Bands # 1.6 1.5 - 8.1 05/03 Normal [facility] HEMATOLOGY Monocytes # 0.2 0.0 - 0.8 05/03 Normal MH [facility] HEMATOLOGY Eosinophils 0.2 0.0 - 0.5 05/03 Normal MH # [facility] HEMATOLOGY Basophils # 0.0 0.0 - 0.2 05/03 Normal MH [facility] HEMATOLOGY Monocytes 5.1 2.0 - 12.0 05/03 Normal [facility] HEMATOLOGY Eosinophils 3.4 0.0 - 4.0 05/03 Normal MH [facility] HEMATOLOGY Basophils 0.4 0.0 - 1.0 05/03 Normal [facility] HEMATOLOGY Segs-Bands # 1.7 1.5 - 8.1 05/03 Normal [facility] HEMATOLOGY Lymphocytes 2.6 1.0 - 5.5 05/03 Normal MH # /2010 [facility] HEMATOLOGY Segs 36.4 45.0 - 05/03 LOW MH 75.0 [facility] HEMATOLOGY Lymphocytes 54.7 20.0 - 05/03 HI MH 40.0 [facility] HEMATOLOGY Large Plt Slight None Seen 05/02 ABN MH *ABN* /2010 [facility] (05/02/2011 04:15:00) HEMATOLOGY Target Cell Slight None Seen 05/02 ABN MH *ABN* /2010 [facility] (05/02/2011 04:15:00) HEMATOLOGY Basophils # 0.0 0.0 - 0.2 05/02 Normal MH /2010 [facility] HEMATOLOGY Polychrom Slight None Seen 05/02 Normal (05/02/2011 04:15:00) [facility] BEDSIDE Comment2 Assess 05/02 NA GLUCOSE Patient /2010 [facility] TESTING HEMATOLOGY Smudge Slight None Seen 05/01 Normal (05/01/2011 04:30:00) [facility] H[facility] Elliptocyte Slight None Seen 05/01 ABN MH *ABN* /2010 [facility] (05/01/2011 04:30:00) HEMATOLOGY Polychrom Slight None Seen 05/01 Normal (05/01/2011 04:30:00) [facility] HEMATOLOGY Target Cell Slight None Seen 05/01 ABN MH *ABN* /2010 [facility] (05/01/2011 04:30:00) HEMATOLOGY Atypical 5.0 <=0.0 05/01 HI Lymphs [facility] HEMATOLOGY Bands 0.0 0.0 - 11.0 05/01 Normal MH /2010 [facility] BEDSIDE Comment2 Assess 05/01 NA GLUCOSE Patient /2010 [facility] TESTING IMMUNOLOGY 24 UPE Tot 5 04/30 NA Prot [facility] IMMUNOLOGY 24Hr UPE 125 04/30 NA MH /2010 [facility] IMMUNOLOGY 24Hr UPE Int Normal 04/30 NA urine [facility] protein electropho resis with minimal proteinuri a. No monoclonal bands are identified ; however, evaluation is limited by the small amount of protein and the resulting lack of discernibl e bands on the electropho retic gel. Interpret ation performed at [facility]. IMMUNOLOGY 24 UPE Tot 2500 04/30 NA Vol /2010 [facility] HEMATOLOGY RBC Morph Normal 04/30 Normal (04/30/2011 05:00:00) [facility] HEMATOLOGY Lup Interp Negative 04/30 NA for lupus [place] anticoagul ant by DRVVT and hexagonal phospholip id neutraliza tion. If there is strong clinical suspicion of lupus anticoagul ant, additional testing, to include anticardio lipin antibody assays, is recommende d. Interpreta tion performed at [facility]. HEMATOLOGY dRVVT 36.9 <=42.9 04/30 Normal MH [facility] HEMATOLOGY Hex Phos N Negative Negative 04/30 Normal (04/30/2011 05:00:00) So [facility] IMMUNOLOGY JASPREET Ser A 04/30 NA Pattern monoclonal [place] band is noted in the gamma region of the IgG and lambda lanes. Faint diffusely immunoreac tive bands are also noted in the IgG, IgA, IgM, kappa, and lambda lanes. Interpreta tion performed at [facility]. IMMUNOLOGY JASPREET Ser Serum 04/30 NA Interp immunofixa /2010 [place] tion electropho resis reveals a monoclonal protein of IgG lambda specificit y. Normal polyclonal immunoglob ulins are present in decreased amounts. Interpreta tion performed at [facility]. IMMUNOLOGY Tot Prot 7.0 6.4 - 8.4 04/30 Normal (SPE) [facility] IMMUNOLOGY SPE Interp Total 04/30 [facility] protein /2010 [place] and albumin are within reference range. A distinct monoclonal band comprising 1.31 g/dl of protein is present in the gamma globulin region. There is also an indication of restricted heterogene ity in immunoglob ulin synthesis. Serum and urine immunofixa tion studies are recommende d for further evaluation . Interpreta tion performed at [facility]. IMMUNOLOGY Gamma Glob 1.65 0.71 - 04/30 HI 1.57 /2010 [facility] IMMUNOLOGY Alpha 2 Glob 0.78 0.45 - 04/30 Normal 1.00 [facility] IMMUNOLOGY Beta Glob 0.69 0.50 - 04/30 Normal 1.15 /2010 [facility] IMMUNOLOGY Albumin % 51.1 55.8 - 04/30 LOW MH 66.1 /2010 [facility] IMMUNOLOGY Alpha 1 % 4.2 2.8 - 4.9 04/30 Normal MH /2010 [facility] IMMUNOLOGY Alpha 2 % 11.2 7.0 - 11.9 04/30 Normal MH [facility] IMMUNOLOGY Beta % 9.9 7.8 - 13.7 04/30 Normal MH [facility] IMMUNOLOGY Gamma % 23.6 11.1 - 04/30 HI MH 18.7 /2010 [facility] Albumin 3.58 3.57 - 04/30 Normal MH (SPE) 5.55 /2010 [facility] Alpha 1 Glob 0.29 0.18 - 04/30 Normal MH 0.41 /2010 [facility] Beta2-Glycop <9 < OR = 20 04/30 NA <sup>22</sup> rotein IgA /2010 Result [facility] Comment: Patients who are found to be anticardiolip in antibody positive may have negative studies for antibodies to Beta 2 GPI. Positive anticardiolip in antibody tests together with negative testing for antibodies to Beta 2 GPI may be seen in a variety of different clinical settings including convalescence from recent infections (viral or bacterial). Clinical Significance: The Antiphospholi pid Antibody Syndrome (APS) is a clinical pathologic correlation that includes a clinical event (e.g. thrombosis, loss, thrombocytope neel) and persistent positive Antiphospholi pid Antibodies (IgM or IgG NISH >40 MPL/GPL, IgM or IgG anti-B2GP1 antibodies, or a Lupus Anticoagulant ). The IgA isotype has been implicated in smaller studies, but have not yet been incorporated into the APS criteria. International consensus guidelines suggest waiting at least 12 weeks before retesting to confirm antibody persistence. Reference J Thromb Haemost 2006: 4; 295. Test Performed at: [facility] [address] [place] [id number] Mario Bowen MD, PhD IMMUNOLOGY Beta2-Glycop <9 < OR = 20 04/30 NA <sup>20</sup> [facility] IgM /2010 Result [facility] Comment: Patients who are found to be anticardiolip in antibody positive may have negative studies for antibodies to Beta 2 GPI. Positive anticardiolip in antibody tests together with negative testing for antibodies to Beta 2 GPI may be seen in a variety of different clinical settings including convalescence from recent infections (viral or bacterial). Test Performed at: [facility] [address] [place] [id number] Mario Bowen MD, PhD IMMUNOLOGY Beta2-Glycop <9 < OR = 20 04/30 NA <sup>21</sup> [facility] IgG /2010 Result [facility] Comment: Patients who are found to be anticardiolip in antibody positive may have negative studies for antibodies to Beta 2 GPI. Positive anticardiolip in antibody tests together with negative testing for antibodies to Beta 2 GPI may be seen in a variety of different clinical settings including convalescence from recent infections (viral or bacterial). Test Performed at: [facility] [address] [place] [id number] Mario Bowen MD, PhD IMMUNOLOGY Cardiolipin 2 04/30 NA <sup>17</sup> IgA Interpretive [facility] Data: Reference Ranges for IgA: 0-11 APL Negative 12-20 APL Inconclusive 21-80 APL Low-Med Positive > 80 APL Strong Positive IMMUNOLOGY Cardiolipin 4.3 04/30 NA <sup>19</sup> IgM Interpretive [facility] Data: Reference Ranges for IgM: 0-12.4 MPL Negative 12.5-20 MPL Inconclusive 21-80 MPL Low-Med Positive > 80 MPL Strong Positive IMMUNOLOGY Cardiolipin 6 04/30 NA <sup>18</sup> [facility]: Reference Ranges for Ig-14 GPL Negative 15-20 GPL Inconclusive 21-80 GPL Low-Med Positive > 80 GPL Strong Positive BEDSIDE Comment2 Notify 04/29 [facility] GLUCOSE RN/ [facility] TESTING BEDSIDE Comment3 Assess 04/29 [facility] GLUCOSE [facility] TESTING CHEMISTRY Calcium Lvl 8.3 8.5 - 10.5 04/29 LOW [facility] CHEMISTRY Potassium 4.5 3.5 - 5.1 04/29 [facility] CHEMISTRY Sodium Lvl 138 135 - 145 04/29 Normal [facility] CHEMISTRY CO2 31 24 - 32 04/29 Normal [facility] CHEMISTRY Chloride Lvl 100 95 - 109 04/29 Normal [facility] CHEMISTRY BUN 22 7 - 22 04/29 Normal [facility] CHEMISTRY Creatinine 1.4 0.5 - 1.4 04/29 Normal Lv [facility] CHEMISTRY Glucose Lvl 101 04/29 NA <sup>6</sup>I nterpretive [facility] Data: Reference Ranges : 0 - 7 days : 41 - 90 mg/dL 7 days - 150 yrs : 70 - 99 mg/dL (fasting), based on the clinical recommendatio ns of the [place] [employer]. CHEMISTRY AGAP 11.5 10.0 - 04/29 Normal . [facility] CHEMISTRY Hgb A1C 7.2 04/29 NA <sup>10</sup> Interpretive [facility] Data: HbA1C% eAG(mg/dL) Interpretatio n 6.0 126 Very good control 6.5 140 Very good control 7.0 154 Good Control 7.5 169 Good Control 8.0 183 Marginal Control, take action to lower 8.5 197 Marginal Control, take action to lower 9.0 212 Poor Control, take action to lower 9.5 226 Poor Control, take action to lower 10.0 240 Poor Control, take action to lower CHEMISTRY TSH 3.540 0.360 - 04/29 Normal 3.740 [facility] HEMATOLOGY Polychrom Slight None Seen 04/29 Normal (04/29/2011 05:20:00) [facility] BACTERIAL MRSA by PCR Negative 1 04/28 Normal <sup>1</sup>I M H - SEROLOGY (04/28/2011 10:58:00) nterpre tive [facility] Data: INTERPRETATIO N: Negative..... .No MRSA DNA detected by PCR Positive..... .MRSA DNA detected by PCR ASSAY LIMITATIONS: This [...] of infection before making therapeutic decisions. Routine decolonizatio n is discouraged and should only be considered for select patients after consultation with an infectious diseases specialist. CHEMISTRY Total 6.7 6.4 - 8.4 04/28 Normal MH Protein [facility] CHEMISTRY ALT 15 0 - 65 04/28 Normal MH [facility] CHEMISTRY Albumin Lvl 3.2 3.5 - 5.0 04/28 LOW [facility] CHEMISTRY Alk Phos 46 39 - 136 04/28 Normal [facility] CHEMISTRY Bili Direct 0.2 0.0 - 0.3 04/28 Normal [facility] CHEMISTRY AST 17 0 - 37 04/28 Normal MH [facility] CHEMISTRY Bili Total 0.8 0.2 - 1.3 04/28 Normal MH [facility] CHEMISTRY Globulin 3.5 2.0 - 4.0 04/28 Normal MH [facility] CHEMISTRY Bili 0.6 0.0 - 1.0 04/28 Normal [facility] CHEMISTRY A/G Ratio 0.9 0.7 - 1.6 04/28 Normal [facility] CHEMISTRY CO2 30 24 - 32 04/28 Normal [facility] CHEMISTRY Calcium Lvl 8.0 8.5 - 10.5 04/28 LOW [facility] CHEMISTRY Chloride Lvl 99 95 - 109 04/28 Normal [facility] CHEMISTRY Potassium 3.6 3.5 - 5.1 04/28 Normal MH Lvl [facility] CHEMISTRY BUN 26 7 - 22 04/28 HI MH [facility] CHEMISTRY Glucose Lvl 139 04/28 NA <sup>7</sup>I nterpretive [facility] Data: Reference Ranges : 0 - 7 days : 41 - 90 mg/dL 7 days - 150 yrs : 70 - 99 mg/dL (fasting), based on the clinical recommendatio ns of the [place] [employer]. CHEMISTRY Sodium Lvl 137 135 - 145 04/28 Normal MH /2011 [facility] CHEMISTRY Creatinine 1.4 0.5 - 1.4 04/28 Normal Lvl [facility] CHEMISTRY AGAP 11.6 10.0 - 04/28 Normal MH 20.0 [facility] HEMATOLOGY Pat Od Value 0.084 04/28 NA MH [facility] HEMATOLOGY Pos CO Value 0.376 04/28 NA [facility] HEMATOLOGY Heprn Negative Negative 04/28 Normal Ab(HASEEB) (04/28/2011 10:50:00) [facility] HEMATOLOGY Plt Morph Normal 04/28 Normal MH (04/28/2011 10:50:00) So [facility] BLOOD BANK Platelet Product available 04/28 Normal RESULTS product (04/28/2011 04:52:00) So [facility] BLOOD BANK Antibody Negative 04/28 Normal RESULTS Scrn (04/28/2011 04:52:00) So [facility] BLOOD BANK ABO/Rh AB POS 04/28 Unknown MH RESULTS [facility] CHEMISTRY Troponin-I 0.70 0.00 - 04/28 CRIT <sup>8</sup>R MH 0.40 esult [facility] Comment: Critical Result(s) called to [place] at 04/28/2011 3:51 by BVo. Read back OK. CHEMISTRY CK MB 4.9 0.5 - 3.6 04/28 HI [facility] CHEMISTRY Total CK 133 12 - 191 04/28 Normal [facility] CHEMISTRY BNP 349 <=100 04/28 HI <sup>9</sup>I nterpretive [facility] Data: Elevated results are in line with increasing severity of congestive heart failure. Minor elevations between 100 and 300 may be seen with Myocardial Ischemia, Sodium retaining drugs, and compensated/t reated heart failure. CHEMISTRY CK MB Index 3.7 0.0 - 2.5 04/28 HI [facility] CHEMISTRY HIPOLITO 24.0 8 - 52 02/17 Normal [place] IMMUNOLOGY PAO Positive >Negative 02/17 ABN [place] *ABN* [place] (02/17/2011 14:22:00) ?? IMMUNOLOGY PAO Titer 1:40 >Negative 02/17 ABN [place] *ABN* [place] (02/17/2011 14:22:00) ?? IMMUNOLOGY PAO Interp Pattern 02/17 NA [place] Mixed Speckled and Nucleolar BEDSIDE Comment1 Notify 02/17 NA MH [place] GLUCOSE RN/MD [place] TESTING BEDSIDE Gluc POC 137.0 65 - 110 02/17 HI <sup>2</sup>I MH [place] GLUCOSE [facility] nterpretive [place] TESTING Data: Upper Reportable Limit: 200 mg/dL. BEDSIDE Gluc POC 141.0 65 - 110 02/17 HI <sup>3</sup>I MH [place] GLUCOSE [facility] nterpretive [place] TESTING Data: Upper Reportable Limit: 200 mg/dL. CHEMISTRY Magnesium 2.3 1.8 - 2.4 02/17 Normal [place] CHEMISTRY AST 10.0 0 - 37 02/17 Normal [place] CHEMISTRY Bili Total 0.5 0.2 - 1.3 02/17 Normal [place] CHEMISTRY Alk Phos 47.0 39 - 136 02/17 Normal [place] CHEMISTRY ALT 26.0 0 - 65 02/17 Normal [place] CHEMISTRY Total 7.0 6.4 - 8.4 02/17 Normal [place] CHEMISTRY Calcium Lvl 8.5 8.5 - 10.5 02/17 Normal [place] CHEMISTRY CO2 30.0 24 - 32 02/17 Normal [place] CHEMISTRY Chloride Lvl 100.0 95 - 109 02/17 Normal [place] CHEMISTRY Potassium 4.5 3.5 - 5.1 02/17 Normal [place] CHEMISTRY Albumin Lvl 2.9 3.5 - 5.0 02/17 LOW MH [place] CHEMISTRY BUN 16.0 7 - 22 02/17 Normal [place] CHEMISTRY Sodium Lvl 138.0 135 - 145 02/17 Normal [place] CHEMISTRY Creatinine 1.2 0.5 - 1.4 02/17 Normal [place] CHEMISTRY Glucose Lvl 167.0 02/17 NA <sup>6</sup>I MH S ug nterpretive [place] Data: Reference Ranges : 0 - 7 days : 41 - 90 mg/dL 7 days - 150 yrs : 70 - 99 mg/dL (fasting), based on the clinical recommendatio ns of the [place] [employer]. CHEMISTRY A/G Ratio 0.7 0.7 - 1.6 02/17 Normal MH [place] /2010 [place] CHEMISTRY Globulin 4.1 2.0 - 4.0 10/ HI MH [place] /2010 [place] CHEMISTRY B/C Ratio 13.0 6 - 25 10/ Normal MH [place] /2010 [place] CHEMISTRY AGAP 12.5 10.0 - 10 Normal MH [place] 20.0 /2010 [place] CHEMISTRY Phosphorus 3.2 2.5 - 4.5 10 Normal MH [place] /2010 [place] HEMATOLOGY Platelet 174.0 133 - 450 10/ Normal MH [place] /2010 [place] HEMATOLOGY MPV 9.7 7.4 - 10.4 10/ Normal [place] /2010 [place] HEMATOLOGY Hgb 14.1 14.0 - 10 Normal [place] 18.0 /2010 [place] HEMATOLOGY RBC 4.65 4.70 - 10 LOW MH [place] 6.10 /2010 [place] HEMATOLOGY RDW 15.1 11.5 - 1011 HI [place] 14.5 /2010 [place] HEMATOLOGY WBC 8.9 3.7 - 10.4 02/17 Normal [place] /2010 [place] HEMATOLOGY Hct 42.5 42.0 - 10 Normal [place] 54.0 /2010 [place] HEMATOLOGY MCV 91.4 80.0 - 10 Normal [place] 94.0 /2010 [place] HEMATOLOGY MCHC 33.3 32.0 - 10 Normal [place] 36.0 /2010 [place] HEMATOLOGY MCH 30.4 27.0 - 10/ Normal [place] 31.0 /2010 [place] HEMATOLOGY Segs-Bands # 7.8 1.5 - 8.1 02/17 Normal [place] /2010 [place] HEMATOLOGY Lymphocytes 0.8 1.0 - 5.5 02/17 LOW MH [place] # /2010 [place] HEMATOLOGY Monocytes # 0.2 0.0 - 0.8 10 Normal MH [place] /2010 [place] HEMATOLOGY Basophils # 0.0 0.0 - 0.2 10/ Normal MH [place] /2010 [place] HEMATOLOGY Eosinophils 0.0 0.0 - 0.5 / Normal MH [place] # /2010 [place] HEMATOLOGY Lymphocytes 9.5 20.0 - 10/11 LOW MH [place] 40.0 /2010 [place] HEMATOLOGY Basophils 0.2 0.0 - 1.0 / Normal [place] /2010 [place] HEMATOLOGY Segs 88.2 45.0 - 10 HI [place] 75.0 /2010 [place] HEMATOLOGY Eosinophils 0.3 0.0 - 4.0 10/11 Normal [place] HEMATOLOGY Monocytes 1.8 2.0 - 12.0 02/17 LOW [place] BEDSIDE Comment1 Notify 02/17 NA [place] GLUCOSE RN/ /2010 [place] TESTING BEDSIDE Gluc POC 155.0 65 - 110 02/17 HI <sup>4</sup>I [place] GLUCOSE [facility] nterpretive [place] TESTING Data: Upper Reportable Limit: 200 mg/dL. BEDSIDE Comment1 Notify 02/16 NA [place] GLUCOSE RN/MD /2010 [place] TESTING HEMATOLOGY INR 1.07 0.85 - 02/16 Normal <sup>10</sup> [place] 1.17 Interpretive [place] Data: RECOMMENDED RANGES FOR PROTIME INR: 2.0-3.0 for most medical and surgical thromboemboli c states. 2.5-3.5 for artificial heart valves and recurrent embolism. INR SHOULD BE USED ONLY FOR PATIENTS ON STABLE ANTICOAGULANT THERAPY. HEMATOLOGY PTT 28.8 22.9 - 02/16 Normal <sup>13</sup> [place] 35.8 Interpretive [place] Data: Heparin Therapeutic Range: 57 - 92 Seconds HEMATOLOGY PT 13.9 12.0 - 10 Normal [place] 14.7 [place] CHEMISTRY Phosphorus 2.8 2.5 - 4.5 02/16 Normal [place] CHEMISTRY ALT 19.0 0 - 65 02/16 Normal [place] CHEMISTRY Calcium Lvl 8.1 8.5 - 10.5 02/16 LOW [place] CHEMISTRY Total 6.4 6.4 - 8.4 02/16 Normal [place] CHEMISTRY CO2 27.0 24 - 32 02/16 Normal [place] CHEMISTRY Albumin Lvl 2.7 3.5 - 5.0 02/16 LOW [place] CHEMISTRY AST 5.0 0 - 37 02/16 Normal [place] CHEMISTRY Bili Total 0.4 0.2 - 1.3 02/16 Normal [place] CHEMISTRY Alk Phos 38.0 39 - 136 02/16 LOW [place] CHEMISTRY Glucose Lvl 93.0 02/16 NA <sup>7</sup>I S ug nterpretive [place] Data: Reference Ranges : 0 - 7 days : 41 - 90 mg/dL 7 days - 150 yrs : 70 - 99 mg/dL (fasting), based on the clinical recommendatio ns of the [place] [employer]. CHEMISTRY Potassium 3.6 3.5 - 5.1 10/ Normal MH [place] Lvl /2010 [place] CHEMISTRY Chloride Lvl 106.0 95 - 109 10/ Normal MH [place] /2010 [place] CHEMISTRY Sodium Lvl 141.0 135 - 145 10/ Normal MH [place] /2010 [place] CHEMISTRY BUN 19.0 7 - 22 10/ Normal MH [place] /2010 [place] CHEMISTRY Creatinine 1.2 0.5 - 1.4 10/10 Normal MH [place] Lvl /2010 [place] CHEMISTRY A/G Ratio 0.7 0.7 - 1.6 10/ Normal MH [place] /2010 [place] CHEMISTRY Globulin 3.7 2.0 - 4.0 10/ Normal [facility] /2010 [place] CHEMISTRY B/C Ratio 16.0 6 - 25 / Normal [facility] /2010 [facility] CHEMISTRY AGAP 11.6 10.0 - 10 Normal [facility] 20.0 /2010 [facility] CHEMISTRY Magnesium 2.3 1.8 - 2.4 10/ Normal [place] Lvl /2010 [place] HEMATOLOGY Lymphocytes 18.7 20.0 - 10 LOW [facility] 40.0 /2010 [place] HEMATOLOGY Segs 75.9 45.0 - 10/ HI [facility] 75.0 /2010 [place] HEMATOLOGY Basophils # 0.0 0.0 - 0.2 10/ Normal [facility] [place] /2010 [place] HEMATOLOGY Eosinophils 0.1 0.0 - 0.5 10/ Normal [facility] [place] # /2010 [place] HEMATOLOGY Lymphocytes 1.8 1.0 - 5.5 10/ Normal [facility] [place] # /2010 [place] HEMATOLOGY Monocytes # 0.4 0.0 - 0.8 10/10 Normal [facility] [place] /2010 [place] HEMATOLOGY Basophils 0.2 0.0 - 1.0 10/10 Normal [facility] [place] /2010 [place] HEMATOLOGY Segs-Bands # 7.3 1.5 - 8.1 10/ Normal [facility] /2010 [place] HEMATOLOGY Eosinophils 0.9 0.0 - 4.0 10/10 Normal [facility] [place] /2010 [place] HEMATOLOGY Monocytes 4.3 2.0 - 12.0 10/ Normal [facility] /2010 [place] HEMATOLOGY Hgb 13.0 14.0 - 10 LOW [facility] 18.0 /2010 [place] HEMATOLOGY Hct 38.5 42.0 - 10 LOW [facility] 54.0 /2010 [place] HEMATOLOGY RBC 4.23 4.70 - 10 LOW [facility] 6.10 [place] HEMATOLOGY WBC 9.6 3.7 - 10.4 10 Normal [facility] /2010 [place] HEMATOLOGY MCH 30.7 27.0 - 02/16 Normal [place] 31.0 /2010 [place] HEMATOLOGY MCV 91.1 80.0 - 02/16 Normal [facility] 94.0 /2010 [place] HEMATOLOGY RDW 14.6 11.5 - 10 HI [facility] 14.5 /2010 [place] HEMATOLOGY MCHC 33.6 32.0 - 02/16 Normal [place] 36.0 /2010 [place] HEMATOLOGY Platelet 132.0 133 - 450 02/16 LOW [facility] /2010 [place] HEMATOLOGY MPV 9.8 7.4 - 10.4 02/16 Normal [facility] /2010 [place] BACTERIAL U S pneumo Negative >Negative 02/15 Normal [facility] - SEROLOGY Ag (02/15/2011 11:30:00) ?? [place] MICRO MISC U Legion Ag Negative 1 >Negative 02/15 Normal <sup>1</sup> I [facility] - SEROLOGY (02/15/2011 11:30:00) ?? nter pretive [place] Data: This kit tests for Legionella pneumophila Serogroup 1 Antigen. CHEMISTRY CK MB 0.9 0.5 - 3.6 02/15 Normal [place] CHEMISTRY Total CK 32.0 12 - 191 02/15 Normal [place] CHEMISTRY Troponin-I 0.15 0.00 - 02/15 Normal [place] 0.40 /2010 [place] HEMATOLOGY Basophils # 0.0 0.0 - 0.2 02/15 Normal [place] /2010 [place] HEMATOLOGY Eosinophils 0.0 0.0 - 0.5 02/15 Normal [place] # /2010 [place] HEMATOLOGY Monocytes # 0.8 0.0 - 0.8 02/15 Normal [place] /2010 [place] HEMATOLOGY Lymphocytes 2.0 1.0 - 5.5 02/15 Normal [facility] [place] # /2010 [place] HEMATOLOGY Segs-Bands # 7.1 1.5 - 8.1 02/15 Normal [facility] /2010 [place] HEMATOLOGY Basophils 0.5 0.0 - 1.0 02/15 Normal [place] HEMATOLOGY Eosinophils 0.3 0.0 - 4.0 02/15 Normal MH [place] /2010 [place] HEMATOLOGY Monocytes 7.8 2.0 - 12.0 02/15 Normal [facility] [place] /2010 [place] HEMATOLOGY Lymphocytes 20.3 20.0 - 02/15 Normal [facility] [place] 40.0 /2010 [facility] HEMATOLOGY Segs 71.1 45.0 - 02/15 Normal [facility] [place] 75.0 /2010 [place] HEMATOLOGY WBC 10.0 3.7 - 10.4 02/15 Normal [facility] [place] /2010 [facility] HEMATOLOGY MCV 91.5 80.0 - 02/15 Normal [facility] [place] 94.0 /2010 [place] HEMATOLOGY Hct 38.9 42.0 - 02/15 LOW [facility] [place] 54.0 /2010 [place] HEMATOLOGY RBC 4.25 4.70 - 02/15 LOW [place] 6.10 [facility] HEMATOLOGY Hgb 12.9 14.0 - 02/15 LOW [place] 18.0 /2010 [facility] HEMATOLOGY MCHC 33.2 32.0 - 02/15 Normal [place] 36.0 /2010 [facility] HEMATOLOGY MCH 30.4 27.0 - 02/15 Normal [facility] 31.0 /2010 [facility] HEMATOLOGY MPV 10.0 7.4 - 10.4 02/15 Normal [place] /2010 [facility] HEMATOLOGY RDW 14.9 11.5 - 02/15 HI [facility] 14.5 /2010 [facility] HEMATOLOGY Platelet 104.0 133 - 450 02/15 LOW [facility] VIRAL - Influ B Negative 5 >Negative 02/15 Normal <sup>5</sup>I Blake gar SEROLOGY (02/15/2011 00:20:00) ?? nterpr etive [facility] Data: Due to the low sensitivity of this test a negative result does not exclude influenza virus infection. A diagnosis of influenza should be considered based on a patient's clinical presentation and empiric antiviral treatment should be considered, if indicated. If more conclusive testing is desired, follow-up confirmatory testing with either viral culture or PCR is warranted. VIRAL - Influ A Negative >Negative 02/15 Normal [place] SEROLOGY (02/15/2011 00:20:00) ?? [facility] CHEMISTRY Total CK 37.0 12 - 191 02/15 Normal [facility] CHEMISTRY Troponin-I 0.15 0.00 - 02/15 Normal [place] 0.40 /2010 [place] Microbiolo Gram Stain 02/15 [facility] gy /2010 [place] Microbiolo Culture: 02/15 [facility] gy Respiratory [place] w/Gram Stain Microbiolo Culture: 02/15 [facility] gy Blood /2010 [place] Microbiolo Culture: 02/15 [facility] [place] gy Blood [place] CHEMISTRY Troponin-I 0.14 0.00 - 10 Normal [facility] [place] 0.40 /2010 [place] CHEMISTRY Total CK 48.0 12 - 191 02/15 Normal [facility] [place] CHEMISTRY AST 5.0 0 - 37 02/15 Normal [facility] [place] CHEMISTRY Alk Phos 40.0 39 - 136 02/15 Normal [facility] [place] CHEMISTRY Bili Total 0.5 0.2 - 1.3 02/15 Normal [facility] [place] CHEMISTRY Albumin Lvl 3.3 3.5 - 5.0 02/15 LOW [facility] [place] CHEMISTRY ALT 16.0 0 - 65 02/15 Normal [facility] [place] CHEMISTRY Calcium Lvl 8.4 8.5 - 10.5 02/15 LOW MH [place] CHEMISTRY Total 7.5 6.4 - 8.4 02/15 Normal [place] CHEMISTRY CO2 27.0 24 - 32 02/15 Normal [place] CHEMISTRY Chloride Lvl 103.0 95 - 109 02/15 Normal [facility] [place] CHEMISTRY Globulin 4.2 2.0 - 4.0 02/15 HI [facility] [place] CHEMISTRY A/G Ratio 0.8 0.7 - 1.6 02/15 Normal [facility] [place] CHEMISTRY AGAP 13.9 10.0 - 02/15 Normal [facility] 20.0 /2010 [place] CHEMISTRY B/C Ratio 15.0 6 - 25 02/15 Normal [place] CHEMISTRY Potassium 3.9 3.5 - 5.1 02/15 Normal [facility] Lvl [place] CHEMISTRY Sodium Lvl 140.0 135 - 145 02/15 Normal [place] CHEMISTRY Creatinine 1.4 0.5 - 1.4 02/15 Normal [facility] Lvl [place] CHEMISTRY BUN 21.0 7 - 22 02/15 Normal [place] CHEMISTRY Glucose Lvl 134.0 02/15 NA <sup>8</sup>I MH S nterpretive [place] Data: Reference Ranges : 0 - 7 days : 41 - 90 mg/dL 7 days - 150 yrs : 70 - 99 mg/dL (fasting), based on the clinical recommendatio ns of the [place] [employer]. CHEMISTRY BNP 304.0 <<=100 02/14 HI <sup>9</sup>I [place] /2010 nterpretive [place] Data: Elevated results are in line with increasing severity of congestive heart failure. Minor elevations between 100 and 300 may be seen with Myocardial Ischemia, Sodium retaining drugs, and compensated/t reated heart failure. HEMATOLOGY PT 14.2 12.0 - 02/14 Normal [place] 14.7 [place] HEMATOLOGY PTT 22.7 22.9 - 02/14 LOW <sup>14</sup> [place] 35.8 Interpretive [place] Data: Heparin Therapeutic Range: 57 - 92 Seconds HEMATOLOGY INR 1.1 0.85 - 02/14 Normal <sup>11</sup> [place] [facility] 1.17 Interpretive [facility] Data: RECOMMENDED RANGES FOR PROTIME INR: 2.0-3.0 for most medical and surgical thromboemboli c states. 2.5-3.5 for artificial heart valves and recurrent embolism. INR SHOULD BE USED ONLY FOR PATIENTS ON STABLE ANTICOAGULANT THERAPY. HEMATOLOGY D-Dimer 0.58 02/14 NA <sup>12</sup> [place] [facility] Interpretive [place] Data: In DIC, quantitative D-Dimer is generally greater than 0.66 ug/mL FEU. Values of quantitative D-Dimer less than 0.40 ug/mL FEU have been reported to be associated with a low probability of deep vein thrombosis/pu lmonary embolism. This test alone should not be used to rule out DVT/PE. HEMATOLOGY Plt Morph Normal 02/14 Normal [facility] (02/14/2011 18:50:00) ?? [facility] HEMATOLOGY RBC Morph Normal 02/14 Normal [facility] (02/14/2011 18:50:00) ?? [facility] Pathology Reports No Data Provided for This Section Diagnostic Reports Report Value Date Source Bone Marrow Bio/Aspr VR Bone Marrow Bio/Aspr VR 03/28/2018 8 :12 AM RELIABILITY ENGINEER 03/28/2018 [facility] Ordering Physician: Navin Thrasher MD CLINICAL HISTORY: - BMB; thrombocytopenia COMPARISON: None PROCEDURE: Informed consent was obtained from the patient, after which the patient was brought into the examination suite a nd placed in a prone position on the fluoroscopy table. The rig ht posterior iliac bone was identified, the biopsy trajectory was chosen, and the overlying skin was marked and prepped and draped utilizing all elements of maximal sterile barrier technique. Lidocaine was injected into a focus skin, soft t issues and periosteum. The 11-gauge Oncontrol biopsy needle advanced un nikky fluoroscopic guidance through the anesthetized tract and down to the periosteal lining. The power drill was activated and the bi opsy needle was advanced into the bone. 1 cc of bone marrow was aspirated and analyzed by a it support technician to confirm appropriat e access followed by 5 mL of bone marrow aspirate. The biopsy needle was further advanced 1 to 2 cm, and a core biopsy was obtained and se nt for laboratory analysis. The patient tolerated procedure well was taken b ack to IR recovery in stable fashion. COMPLICATIONS: None ANESTHESIA: Lidocaine solution was administered locally, as described; Moderate conscious sedation was initi ated and maintained with intravenous 2 mg Versed and 100 mcg fentan yl for a total face to face sedation time of 15 minutes. The patient's vital signs were monitored throughout the procedure by a dedicate d nurse. LEAD INSPECTOR: Dr. Burrell FLUOROSCOPY TIME: 0.5 mins AIR KERMA DOSE: 31 mGy IMPRESSION: Successful fluoroscopically guided bone marrow a nd bone biopsies. SL: [id number] Ext Lower Venous Doppler Patient Name: JAVIER BUNCH 03/26/2018 [facility] Bilat US : 1935. Age: 82 years. Gender: Male. MR: [id number]. Location: [facility]. Provider: Arnoldo eMlo MD. EXAM: Ext Lower Venous Doppler Bilat US. PROVIDED CLINICAL HISTORY: Hyperlipidemia - plebits Clinical suspicion for deep venous thrombosis. TECHNIQUE: Grayscale, color Doppler, and spectral flow evaluation of the RIGHT and LEFT lower extremity veins. COMPARISON: No relevant prior exams available at the time of interpretation. FINDINGS: -- Spontaneous compressib le flow with normal phasic waveforms and appropriate response to augmentation in all the imaged veins, including the common femoral, femoral, popliteal, posterior tibial, and imaged portions of the cent ral saphenous veins. No evidence of deep venous thrombosis (DVT). Stent/filter is noted within left common femoral vein. -- Fluid collection in th e RIGHT popliteal fossa, likely a Hewitt's cyst, 1.6 cm. IMPRESSION: No evidence of DVT in the imaged RIGHT or LEFT l ower extremity veins. Right popliteal fossa Hewitt's cyst. SL: [id number] Retroperitoneal Complete Clinical Indication: Chronic renal insufficiency. 04/10/2017 [facility] Comparison: CT performed on 09/20/2012 TECHNIQUE: Multiple longitudinal and tr ansverse real time sonographic images of the kidneys and urinary bladder are obtained. FINDINGS: KIDNEY: The right kidney measures 10.0 x 4.8 x 4.5 cm. The left kidney measures 10.4 x 4.7 x 4.5 cm. The kidneys are normal in sh ape, contour, and position. The cortices are normal in thickness and the corticomedulluary differentiation is maintained. There is no hydronephrosis or abnormal perinephric collections. Left kidney c ontains a 7 mm linear hyperechoic focus with mild posterior shadowing, suggesting a small stone. BLADDER: Scanning through the pelvis reveals the bladder to be partially distended with anechoic urine. ASCITES: No ascites noted. IMPRESSION: 1. 7 mm left renal stone. 2. Otherwise unremarkable renal U/S SL: [id number] Brain wo contrast CT Clinical Indication: syncope , DLP: 767.06mGycm - syncope, DLP: 767.06mGycm. 81-year-old male with syncope. [facility] Comparison: None TECHNIQUE: CT images were ob tained from the foramen magnum to the vertex without the use of intravenous contrast on a multidetector CT. Coronal and sagittal reconstructions were obtained. CT radiation dose DLP: 767.06 mGy-cm FINDINGS: BRAIN PARENCHYMA: An 8 mm thick CSF density ex tra-axial fluid collection is seen laterally to the left cerebellar hemisphere with minimal left to right shift of 2 mm and mild mass effect on the underlying cerebellar hemisphere. Age-appropriate decreased br ain volume is seen. Mild nonspecific periventricular white matter disease changes are noted. Atherosclerotic calcifications are present within the carotid siphons and distal vertebral arteries. There a re no focal mass lesions on this noncontrast head CT. There is no mass effect, midline shift or edema. There are no intra-axial collections, intraventricular or intraparenchy mal hemorrhage. There is no noncontrast CT evide nce of a subacute stroke. The pineal, sellar, brainste m, cerebellum and skull base regions appear unremarkable. VENTRICLES: The lateral vent ricles, third and fourth ventricles are normal for age. The basilar cisterns are normal. ORBITS, MASTOIDS AND PARANAS AL SINUSES: The visualized orbits are unremarkable. No significant patchy mucosal thickening is seen in the paranasal sinuses. The mastoid air cells are clear. SKULL: There are no calvarial abnormalities seen . If there is further concern for intracranial pathology or acute stroke, MRI of the brain may be performed for complete assessment. IMPRESSION: 1. 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 2. Mild chronic age-related and small vessel ischemic changes without mass, acute hemorrhage or subacute stroke. SL: [id number] Abdomen complete US Patient Name: JAVIER BUNCH 03/17/2017 [facility] : 1935; Age: 81 years y/o Male MR: [id number] Study: Abdomen complete US 03/17/2017 10:32 AM CS T Ordering Physician: Navin Thrasher MD Clinical Indication: - possible splenomegaly; Comparison: None TECHNIQUE: Grayscale and limited color sonographic evaluation of the abdomen was performed with standard technique. Note that the study is severely limited by the p atient's body habitus. FINDINGS: LIVER: Liver is severely hyperechoi c and poorly imaged. Suggest fatty infiltration. No definite lesion or intrahepatic duct dilatation is evident. BILE DUCTS: Common bile duct is never visualized. GALLBLADDER: Nonshadowing echogenic depen dent gallbladder sludge. No shadowing gallstones. No gallbladder wall thickening or pathologic fluid appreciated. PANCREAS: Obscured. SPLEEN: The spleen is poorly visuali zed, however measures 11.7 x 3.3 x 4.5 cm, normal size. KIDNEY: The right kidney measures 10 x 5.5 x 4.5 cm. The left kidney measures 10 x 4.8 x 5.0 cm. No pelvocaliectasis, nephrol ithiasis or renal mass lesion identified bilaterally. AORTA AND INFERIOR VENA CAVA: Not seen. ASCITES: There is no abdominal ascites visualized. IMPRESSION: Severely limited study. No evidence for splenomegaly. Gallbladder luminal sludge. No shadowing gallstone or gallbladder wall thickening appreciated. Severe hepatic steatosis. SL: [id number] Carotid artery Doppler Study: Carotid artery Doppler bilat US [facility] bilat US Clinical Indication: Syncope and collapse - pass ed out week ago Comparison: None TECHNIQUE: Larson-scale, color Doppler an d spectral Doppler of the carotid arteries was performed. Any reported ICA stenoses indirectly reference the distal internal carotid diameter as the denominator for the sten osis measurement, utilizing consensus panel robert teixeira. FINDINGS: RIGHT: No significant plaque is seen. ICA PSV 64.8 cm/sec CCA PSV 48.6 cm/sec ICA/CCA ratio 1.33 Vertebral flow is antegrade. External carotid artery is patent. LEFT: Sma ll atherosclerotic plaque in the left carotid bulb is noted. ICA PSV 68 cm/sec CCA PSV 69.2 cm/sec ICA/CCA ratio 0.98 Vertebral flow is antegrade. External carotid artery is patent. IMPRESSION: 1. Mild atherosclerotic dise ase of the left carotid bulb without hemodynamically significant stenosis. Consensus panel Doppler US criteria for diagnosi s of ICA stenosis: Stenosis (%) ICA PSV (cm/sec) ICA/CCA ratio <50 <125 <2.0 50-69 125-230 2.0-4.0 >70 but less than >230 >4.0 near occlusion Near occlusion High, low, or Variable undetectable SL:[id number] Retroperitoneal Complete Clinical Indication: aleksandra/ckd - aleksandra/ckd; 03/16/2017 [facility] Comparison: 03/11/2013. TECHNIQUE: Multiple longitudinal and tr ansverse real time sonographic images of the kidneys and urinary bladder are obtained. FINDINGS: The study is extremely limited due to large body habitus. KIDNEY: The right kidney measures 10.5 cm. The left kidney measures 9.4 cm. Increased cortical echogenic ity of both kidneys are noted. No calculus, hydronephrosis, mass, or cyst is appreciated. BLADDER: Partial distension of the ur inary bladder with anechoic fluid is noted. No wall thickening or mass is seen. No ureteral jets were seen on color Doppler imaging. IMPRESSION: 1. Increased cortical echoge nicity of both kidneys, indicating medical renal disease. No hydronephrosis. 2. No ureteral jets seen on color Doppler imagin g. SL: [id number] Chest 1view DX Clinical history: Chest pain. 01/17/2016 [employer] : 1935. Technique: Portable AP chest x-ray. Comparison: 04/23/2015. Heart size: Top normal limits. No pulmon neda edema. Left transvenous pacemaker. Lungs: No acute consolidation. Pleura: No pleural effusion. Mediastinum and abbi: Unremarkable. Skeletal: Unremarkable. Impression: 1. No acute finding in the chest. Chest 1view DX ADDENDUM: 04/23/2015 [facility] The impression should read: Dual lead left subclavian pacemaker placement. N o pneumothorax seen. SL: 12 EXAM: CHEST 1 VIEW DATE: Apr 23, 2015 05:24:20 PM INDICATION: Tube placement/removal/reposition COMPARISON: Chest x-ray 04/21/2015. TECHNIQUE: AP chest radiograph. FINDINGS: Dual lead left subclavian pa cemaker is in place with its lead tips overlying the right atrium and right ventricle. No pneumothorax pleural effu lidia is seen. Lung volumes are low. Prominent cardiomediastinal contours are likely related to AP technique and low lung volumes. No acute skeletal abnormality is identified. IMPRESSION: Dual lead left subclavian pa cemaker and its lead tips overlying the right atrium and pneumothorax seen. SL: 12 Chest 2 views DX CHEST, TWO VIEWS 04/21/2015 [facility] HISTORY: Chest pain. COMPARISON: 07/06/2014 FINDINGS: The lungs are clear. No pleural effusion. No pn eumothorax. Heart size normal. No acute osseous abnormality. SL: 14 Hip 2 views DX 02/02/2015 [facility] REASON FOR EXAM: Pain from a fall. COMPARISON: AP view of the pelvis 02/10/2006. FINDINGS: AP view of the pel vis. Additional views of the right hip. Four images are submitted. There are degenerative and postsurgical changes of the visualized lower lumbar spine. Enthesophytes involvi ng the iliac wings and infer ior pubic rami. Degenerative changes of the bilateral superolateral acetabular regions. Small bony spurs involving the femoral heads. Calcified pelvic phleboliths. Femoral ar nadege calcifications. No demonstrable fracture or dislocation. IMPRESSION: No demonstrable acute osseous abnormality of the pelvis or right hip. SL: 14 Chest 2 views DX CLINICAL HISTORY: Coughing. 07/06/2014 [employer] : 1935. TECHNIQUE: PA and lateral views of the chest com pared to April 02, 2014. Heart size is normal. Perihi lar bronchovascular prominence appears chronic. No new consolidation or effusion. No pulmonary edema. IMPRESSION: 1. No acute changes in the chest. Chest 1view NAME: JAVIER BUNCH 04/02/2014 [facility] : 1935 SEX: M 12 Ordering Physician: Terry Monterroso Chest 1view : Apr 02, 2014 08:58:00 AM. CLINICAL INDICATION: Mass. Comparison Examination: 03/05/2014. FINDINGS: Enlarged cardiac silhouette and mediastinal structures stable including aortic calcification. Degenerative changes seen about the thoracic spine. No focal infiltrate identified within the lungs, no edema and no pneumothorax. SL: 14 Consultation Notes No Data Provided for This Section Discharge Summaries No Data Provided for This Section History and Physicals No Data Provided for This Section Vital Signs Vital Sign Value Date Comments Source Respitory Rate 20 12/01/2018 [facility] Systolic (mm Hg) 94 12/01/2018 [facility] t Diastolic (mm Hg) 58 12/01/2018 [facility] Temperature Oral (F) 98.5 F 12/01/2018 [facility] Heart Rate 86 12/01/2018 [facility] Systolic (mm Hg) 107 12/01/2018 [facility] t Diastolic (mm Hg) 66 12/01/2018 [facility] Heart Rate 76 12/01/2018 [facility] Respitory Rate 20 12/01/2018 [facility] Temperature Oral (F) 98.1 F 12/01/2018 [facility] Systolic (mm Hg) 112 12/01/2018 [facility] Diastolic (mm Hg) 63 12/01/2018 [facility] st Respitory Rate 20 12/01/2018 [facility] Heart Rate 41 12/01/2018 [facility] Height 193.04 cm 12/01/2018 [facility] BMI Calculated 39.16 11/30/2018 [facility] Weight 145.909 11/30/2018 [facility] Height 193.04 cm 11/30/2018 [facility] Systolic (mm Hg) 129 03/29/2018 [facility] t Diastolic (mm Hg) 71 03/29/2018 [facility] Respitory Rate 18 03/29/2018 [facility] Heart Rate 69 03/29/2018 [facility] Temperature Oral (F) 97.5 F 03/29/2018 [facility] Heart Rate 82 03/29/2018 [facility] Respitory Rate 18 03/29/2018 [facility] Systolic (mm Hg) 156 03/29/2018 [facility] Diastolic (mm Hg) 85 03/29/2018 [facility] [address] Temperature Oral (F) 98.4 F 03/29/2018 [facility] Weight 138.095 03/29/2018 [facility] Systolic (mm Hg) 135 03/29/2018 [facility] Diastolic (mm Hg) 76 03/29/2018 [facility] st Heart Rate 78 03/29/2018 [facility] Temperature Oral (F) 98.3 F 03/29/2018 [facility] Respitory Rate 20 03/29/2018 [facility] BMI Calculated 36.96 03/25/2018 [facility] Weight 137.727 03/25/2018 [facility] Height 193.04 cm 03/25/2018 [facility] Temperature Oral (F) 97.9 F 04/11/2017 [facility] Systolic (mm Hg) 93 04/11/2017 [facility] Diastolic (mm Hg) 57 04/11/[address] Respitory Rate 18 04/11/2017 [facility] Heart Rate 74 04/11/2017 [facility] Temperature Oral (F) 98.2 F 04/11/2017 [facility] Heart Rate 78 04/11/2017 [facility] Systolic (mm Hg) 103 04/11/2017 [facility] Diastolic (mm Hg) 65 04/11/[address] Respitory Rate 18 04/11/2017 [facility] Systolic (mm Hg) 93 04/11/2017 [facility] Diastolic (mm Hg) 60 04/11/2017 [facility] [address] Heart Rate 74 04/11/2017 [facility] Respitory Rate 18 04/11/2017 [facility] Temperature Oral (F) 98.2 F 04/11/2017 [facility] Height 193.04 cm 04/08/2017 [facility] Weight 145.909 04/08/2017 [facility] BMI Calculated 39.16 04/08/2017 [facility] Temperature Oral (F) 98.4 F 03/23/2017 [facility] Heart Rate 69 03/23/2017 [facility] Respitory Rate 20 03/23/2017 [facility] Systolic (mm Hg) 120 03/23/2017 [facility] Diastolic (mm Hg) 72 03/23/[address] Systolic (mm Hg) 115 03/23/2017 [facility] Diastolic (mm Hg) 69 03/23/[address] Temperature Oral (F) 98.2 F 03/23/2017 [facility] Heart Rate 82 03/23/2017 [facility] Respitory Rate 18 03/23/2017 [facility] Heart Rate 80 03/23/2017 [facility] Systolic (mm Hg) 103 03/23/2017 [facility] Diastolic (mm Hg) 57 03/23/[address] [facility] [address] Respitory Rate 18 03/23/2017 [facility] Temperature Oral (F) 98.4 F 03/23/2017 [facility] BMI Calculated 39.69 03/16/2017 [facility] Weight 147.909 03/16/2017 [facility] Height 193.04 cm 03/16/2017 [facility] Weight 129.545 03/16/2017 [facility] BMI Calculated 34.76 03/16/2017 [facility] Height 193.04 cm 03/16/2017 [facility] Temperature Oral (F) 97.9 F 03/11/2016 [facility] [facility] Systolic (mm Hg) 106 03/11/2016 [place] Diastolic (mm Hg) 68 03/11/[address] Heart Rate 109 03/11/2016 [facility] Respitory Rate 18 03/11/2016 [place] Systolic (mm Hg) 97 03/11/2016 [place] Diastolic (mm Hg) 64 03/11/[address] Respitory Rate 18 03/11/2016 [facility] Temperature Oral (F) 98.1 F 03/11/2016 [facility] Heart Rate 108 03/11/2016 [facility] Rate 107 03/11/2016 [facility] Temperature Oral (F) 97.8 F 03/11/2016 [facility] Respitory Rate 18 03/11/2016 [facility] Systolic (mm Hg) 100 03/11/2016 [place] Diastolic (mm Hg) 65 03/11/[address] BMI Calculated 35.62 03/09/2016 [facility] Weight 132.727 03/09/2016 [facility] Height 193.04 cm 03/09/2016 [place] Respitory Rate 18 01/18/2016 [facility] Heart Rate 98 01/18/2016 [place] Temperature Oral (F) 98.7 F 01/18/2016 [place] Systolic (mm Hg) 117 01/18/2016 [facility] [place] Diastolic (mm Hg) 69 01/18/2016 [place] Temperature Oral (F) 98.2 F 01/18/2016 [place] Heart Rate 103 01/18/2016 [place] Respitory Rate 18 01/18/2016 [facility] [place] Systolic (mm Hg) 113 01/18/2016 [facility] [place] Diastolic (mm Hg) 64 01/18/2016 [place] Temperature Oral (F) 98.1 F 01/18/2016 [place] Heart Rate 100 01/18/2016 [place] Respitory Rate 18 01/18/2016 [place] Weight 136.364 01/18/2016 [place] BMI Calculated 36.59 01/18/2016 [place] Height 193.04 cm 01/18/2016 [place] Diastolic (mm Hg) 79 01/18/2016 [place] Systolic (mm Hg) 119 01/18/2016 [place] Weight 138.182 01/17/2016 [place] Heart Rate 72 05/28/2015 [place] Temperature Oral (F) 97.9 F 05/28/2015 [place] Respitory Rate 18 05/28/2015 [place] Systolic (mm Hg) 148 05/28/2015 [place] Diastolic (mm Hg) 77 05/28/2015 [place] Weight 130.5 05/28/2015 [place] Temperature Oral (F) 97.8 F 05/28/2015 [place] Respitory Rate 18 05/28/2015 [place] Heart Rate 76 05/28/2015 [place] Systolic (mm Hg) 167 05/28/2015 [place] Diastolic (mm Hg) 71 05/28/2015 [place] Systolic (mm Hg) 131 04/24/2015 [place] Diastolic (mm Hg) 69 04/24/[address] Respitory Rate 18 04/24/2015 [facility] Temperature Oral (F) 97.7 F 04/24/2015 [facility] Heart Rate 65 04/24/2015 [facility] Systolic (mm Hg) 123 04/24/2015 [place] Diastolic (mm Hg) 74 04/24/[address] [facility] [address] Respitory Rate 18 04/24/2015 [facility] Temperature Oral (F) 97.2 F 04/24/2015 [facility] Heart Rate 64 04/24/2015 [facility] Systolic (mm Hg) 110 04/24/2015 [place] Diastolic (mm Hg) 66 04/24/[address] [facility] [address] Respitory Rate 18 04/24/2015 [facility] Heart Rate 60 04/24/2015 [facility] Temperature Oral (F) 97.7 F 04/24/2015 [facility] Weight 130.004 04/21/2015 [facility] Height 187.96 cm 04/21/2015 [facility] BMI Calculated 36.8 04/21/2015 [facility] Temperature Oral (F) 98 F 02/03/2015 [facility] Heart Rate 69 02/03/2015 [facility] Systolic (mm Hg) 167 02/03/2015 [facility] Diastolic (mm Hg) 74 02/03/[address] [facility] [address] Respitory Rate 18 02/03/2015 [facility] Height 172.72 cm 02/02/2015 [facility] Weight 131.364 02/02/2015 [facility] BMI Calculated 44.03 02/02/2015 [facility] Respitory Rate 18 02/02/2015 [facility] Temperature Oral (F) 98.2 F 02/02/2015 [facility] Heart Rate 82 02/02/2015 [facility] Systolic (mm Hg) 118 02/02/2015 [place] Di[place] (mm Hg) 68 02/02/[address] [facility] [address] Heart Rate 61 07/07/2014 [place] Respitory Rate 16 07/07/2014 [place] Temperature Oral (F) 98.3 F 07/07/2014 [place] Heart Rate 59 07/07/2014 [place] Respitory Rate 18 07/07/2014 [place] Systolic (mm Hg) 159 07/07/2014 [place] Diastolic (mm Hg) 60 07/07/2014 [place] Systolic (mm Hg) 160 07/07/2014 [place] Diastolic (mm Hg) 54 07/07/2014 [place] Respitory Rate 20 07/07/2014 [place] Heart Rate 57 07/07/2014 [place] Systolic (mm Hg) 151 07/07/2014 [place] Diastolic (mm Hg) 61 07/07/2014 [place] Temperature Oral (F) 98.1 F 07/07/2014 [place] Height 193.04 cm 07/07/2014 [place] BMI Calculated 36.72 07/07/2014 [place] Weight 136.818 07/07/2014 [place] Diastolic (mm Hg) 54 04/02/[address] Systolic (mm Hg) 137 04/02/2014 [place] Respitory Rate 17 04/02/2014 [facility] Diastolic (mm Hg) 54 04/02/[address] Respitory Rate 12 04/02/2014 [facility] Systolic (mm Hg) 137 04/02/2014 [place] Diastolic (mm Hg) 60 04/02/[address] Systolic (mm Hg) 147 04/02/2014 [place] Respitory Rate 13 04/02/2014 [facility] Temperature Oral (F) 97.9 F 04/02/2014 [facility] Temperature Oral (F) 97.7 F 04/02/2014 [facility] Height 193.04 cm 03/30/2014 [facility] BMI Calculated 31.71 03/30/2014 [facility] Weight 118.182 03/30/2014 [facility] Temperature Oral (F) 98.2 F 03/30/2014 [facility] [place] Heart Rate 58 03/30/2014 [facility] Respitory Rate 18 03/06/2014 [facility] Heart Rate 61 03/06/2014 [facility] Temperature Oral (F) 98.1 F 03/06/2014 [facility] Systolic (mm Hg) 116 03/06/2014 [place] Diastolic (mm Hg) 54 03/06/[address] Systolic (mm Hg) 136 03/05/2014 [place] Temperature Oral (F) 98.1 F 03/05/2014 [facility] Heart Rate 54 03/05/2014 [facility] Respitory Rate 20 03/05/2014 [facility] Diastolic (mm Hg) 59 03/05/[address] Respitory Rate 20 03/05/2014 [facility] Diastolic (mm Hg) 60 03/05/[address] Systolic (mm Hg) 124 03/05/2014 [place] Heart Rate 55 03/05/2014 [facility] Temperature Oral (F) 98.1 F 03/05/2014 [facility] Weight 127.1 02/27/2014 [facility] Weight 126.3 02/26/2014 [facility] BMI Calculated 33.89 02/26/2014 [facility] Height 193.04 cm 02/26/2014 [facility] Height 193.04 cm 02/25/2014 [facility] Weight 117.727 02/25/2014 [facility] BMI Calculated 31.59 02/25/2014 [facility] Temperature Oral (F) 99 F 01/28/2014 [facility] Heart Rate 67 01/28/2014 [facility] Respitory Rate 18 01/28/2014 [facility] Diastolic (mm Hg) 67 01/28/[address] Systolic (mm Hg) 132 01/28/2014 [place] Temperature Oral (F) 98.8 F 01/28/2014 [facility] Heart Rate 60 01/28/2014 [facility] Respitory Rate 18 01/28/2014 [facility] Systolic (mm Hg) 139 01/28/2014 [place] Diastolic (mm Hg) 71 01/28/[address] Weight 119.116 01/28/2014 [facility] Systolic (mm Hg) 120 01/28/2014 [place] Diastolic (mm Hg) 54 01/28/[address] Temperature Oral (F) 98.5 F 01/28/2014 [facility] Heart Rate 62 01/28/2014 [facility] Respitory Rate 20 01/28/2014 [facility] BMI Calculated 32.15 01/26/2014 [facility] Height 193.04 cm 01/26/2014 [facility] Weight 119.801 01/26/2014 [facility] Height 193.04 cm 07/20/2012 [place] Weight 122.273 07/20/2012 [place] Systolic (mm Hg) 136 02/28/2012 [place] [facility] Rate 116 02/28/2012 [facility] Respitory Rate 18 02/28/2012 [facility] Diastolic (mm Hg) 91 02/28/[address] Temperature Oral (F) 98.7 F 02/28/2012 [facility] Diastolic (mm Hg) 69 02/27/[address] Respitory Rate 20 02/27/2012 [facility] Systolic (mm Hg) 123 02/27/2012 [place] Temperature Oral (F) 98.3 F 02/27/2012 [facility] Heart Rate 57 02/27/2012 [facility] Diastolic (mm Hg) 61 02/27/2012 [facility] Systolic (mm Hg) 124 02/27/2012 [facility] t Respitory Rate 20 02/27/2012 [facility] Temperature Oral (F) 97.5 F 02/27/2012 [facility] Heart Rate 57 02/27/2012 [facility] Height 193.04 cm 02/26/2012 [facility] Weight 120.000 02/26/2012 [facility] Weight 119.091 02/26/2012 [facility] Height 193.04 cm 02/26/2012 [facility] Respitory Rate 18 12/08/2011 [facility] Diastolic (mm Hg) 49 12/08/2011 [facility] Systolic (mm Hg) 119 12/08/2011 [facility] Temperature Oral (F) 98.9 F 12/08/2011 [facility] Heart Rate 57 12/08/2011 [facility] Temperature Oral (F) 99.2 F 12/08/2011 [facility] Heart Rate 57 12/08/2011 [facility] Systolic (mm Hg) 131 12/08/2011 [facility] Respitory Rate 18 12/08/2011 [facility] Diastolic (mm Hg) 74 12/08/2011 [facility] Diastolic (mm Hg) 58 12/08/2011 [facility] Systolic (mm Hg) 119 12/08/2011 [facility] Respitory Rate 20 12/08/2011 [facility] Heart Rate 54 12/08/2011 [facility] Temperature Oral (F) 97.9 F 12/08/2011 [facility] Height 193.04 cm 12/03/2011 [facility] Weight 119.091 12[facility]03/2011 [facility] Weight 119.091 12/01/2011 [facility] Height 193.04 cm 12/01/2011 [facility] Weight 119.091 12/01/2011 [facility] Height 193.04 cm 12/01/2011 [facility] Respitory Rate 18 08/28/2011 [place] Heart Rate 49 08/28/2011 [place] Diastolic (mm Hg) 65 08/28/2011 [place] Systolic (mm Hg) 138 08/28/2011 [place] Temperature Oral (F) 97.7 F 08/28/2011 [place] Diastolic (mm Hg) 55 08/28/2011 [facility] [place] Systolic (mm Hg) 117 08/28/2011 [facility] [place] Heart Rate 54 08/28/2011 [place] Respitory Rate 18 08/28/2011 [place] Temperature Oral (F) 97.9 F 08/28/2011 [place] Diastolic (mm Hg) 61 08/27/2011 [facility] [place] Systolic (mm Hg) 130 08/27/2011 [facility] [place] Respitory Rate 18 08/27/2011 [place] Heart Rate 47 08/27/2011 [place] Temperature Oral (F) 98.1 F 08/27/2011 [place] Weight 129.091 08/26/2011 [place] Height 193.04 cm 08/26/2011 [place] Respitory Rate 18 07/07/2011 [facility] Diastolic (mm Hg) 55 07/07/[address] [facility] [address] Heart Rate 55 07/07/2011 [facility] Systolic (mm Hg) 120 07/07/2011 [facility] Temperature Oral (F) 98.4 F 07/07/2011 [facility] Diastolic (mm Hg) 55 07/07/[address] [facility] [address] Systolic (mm Hg) 120 07/07/2011 [facility] Respitory Rate 18 07/07/2011 [facility] Temperature Oral (F) 97.3 F 07/07/2011 [facility] Heart Rate 49 07/07/2011 [facility] Temperature Oral (F) 97.8 F 07/07/2011 [facility] Weight 129.900 07/06/2011 [facility] Weight 130.800 07/06/2011 [facility] Height 193.04 cm 07/06/2011 [facility] Systolic (mm Hg) 124 05/05/2011 [place] Respitory Rate 20 05/05/2011 [facility] Diastolic (mm Hg) 52 05/05/[address] [facility] [address] Heart Rate 57 05/05/2011 [facility] Temperature Oral (F) 98.6 F 05/05/2011 [facility] Heart Rate 51 05/05/2011 [facility] Diastolic (mm Hg) 70 05/05/[address] Systolic (mm Hg) 128 05/05/2011 [place] [facility] Respitory Rate 18 05/05/2011 [facility] Temperature Oral (F) 98.0 F 05/05/2011 [facility] Temperature Oral (F) 98.6 F 05/05/2011 [facility] Systolic (mm Hg) 118 05/05/2011 [facility] Diastolic (mm Hg) 54 05/05/[address] Respitory Rate 20 05/05/2011 [facility] Heart Rate 52 05/05/2011 [facility] Weight 126.477 05/02/2011 [facility] Weight 125.100 04/28/2011 [facility] Height 193.04 cm 04/28/2011 [facility] Respitory Rate 16.0 02/17/2011 [place] Heart Rate 55.0 02/17/2011 [place] Temperature Oral (F) 97.8 F 02/17/2011 [place] Systolic (mm Hg) 151.0 02/17/2011 [place] Diastolic (mm Hg) 75.0 02/17/2011 [place] Diastolic (mm Hg) 80.0 02/17/2011 [place] Temperature Oral (F) 97.7 F 02/17/2011 [place] Systolic (mm Hg) 157.0 02/17/2011 [place] Respitory Rate 16.0 02/17/2011 [facility] Heart Rate 60.0 02/17/2011 [place] Diastolic (mm Hg) 72.0 02/17/2011 [place] Respitory Rate 16.0 02/17/2011 [place] Systolic (mm Hg) 123.0 02/17/2011 [place] Temperature Oral (F) 98.5 F 02/17/2011 [place] Heart Rate 60.0 02/17/2011 [place] Weight 133.778 02/15/2011 [place] Height 193.04 cm 02/15/2011 [place] Weight 134.091 02/14/2011 [place] Height 193.04 cm 02/14/2011 [place] Encounters Location Location Encounter Encounter Reason Attending ADM AL Stat Source Details Type Number For Provider Date Date Visit Inpatient [id number] TONEY BRASHER 02/14 02/17 Disch arg [place] [facility] [id number] AKOSUA 04/28 05/05 Dischar g [facility] 3 ODOM /[address] [facility] OU [id number] CHEST MONALISA GIL 07/06 07/07 Active [facility] 5 PAIN, /2011 [facility] THROMBOC st YTOPENIA MH Outpatient [id number] BIJAL ARNALDO 08/14 08/14 Active [facility] [place] 4 MELO [place] [facility] [id number] GI BLEED AKOSUA 08/25 08/27 Activ e [place] 9 ODOM [place] [facility] Inpatient [id number] LUMBAR MARIA R LOVY 11/30 12/07 Ac tive Medical 6 SPINAL [facility] OU [id number] ACUTE BHAGWAT 02/24 02/26 Active [facility] 2 OR, CATALAN /[address] CARLOS [id number] ARNALDO 07/21 07/21 Discharg [facility] 8 ed [facility] Inpatient [id number] Giao Cox 01/26 01/28 [facility] Inpatient [id number] Giao Cox 02/25 03/06 [place] [facility] OBS Day [id number] Terry 04/02 04/02 [place] [facility] 2 Kriss [facility] EC [id number] Abdon Forbes 07/07 07/07 [place] Emergency [place] [facility] [place] [id number] Pop Mercado 02/02 02/03 No[facility] Emergency [facility] e [facility] Inpatient [id number] Mike Odom 04/21 04/24 [place] [facility] EC [id number] Elizabeth Catalan 05/28 05/28 [place] [facility] [place] [facility] Observation [id number] Alverto 01/16 01/17 [place] 7 Alexus [place] [facility] Observation [id number] Kavita 03/09 03/11 No[place] 5 Melo [facility] Outpatient [id number] ARNALDO 08/18 Active M emoria 0 [facility] Inpatient [id number] Kiritkumar 03/16 03/24 [place] 8 [facility] Inpatient [id number] Kiritkumar 04/10 04/11 Noel 4 Melo [facility] Inpatient [id number] Kiritkumar 03/25 03/29 [place] 0 [facility] Diag [id number] Arnaldo 04/19 04/19 M [facility] 0 [place] [facility] [place] Inpatient [id number] Cecy 11/30 12/01 [place] 4 [facility] CARLOS [id number] BLOOD IN TIARA Cancel [facility] 1 STOOL AVA [place] CARLOS [id number] TEAR TIARA Cancel [facility] MEDIAL AVA [place] [facility]ISC[facility] [place] [facility] Preadmit [id number] LUMBAR AMIR NAI Canc el Medical 6 STENOSIS [facility] , LUMBAR Medical RADICULO Center PAUL OD [id number] 486 - ARNALDO Cancel OP ID 3 "[facility]NEUMON [facility] [place], [place] ORGA" Procedures Procedure Code Date Perfomer Comments Source Fluoroscopic [id number] OPID angiography of [place] coronary artery and [facility] insertion of stent [facility] [place] Fusion of lumbar [id number] OPID spine [place] [place] IVC - Insertion of [id number] OPI D inferior vena caval [place] filter [facility] [place] Pacemaker [id number] inserted in OPID care<sup>1</sup> Apr 23, 2015 [place] [place] Percutaneous [id number] OPID transluminal [place] balloon angioplasty [facility] of aorta with stent [facility] placement for [place] coarctation of aorta Procedure on [id number] states "back OPID back<sup>2</sup> surgery" [facility] [place] IVC - Insertion of [facility] [place] inferior vena caval [place] filter Procedure on back 1states "back MH S ugar <sup>1</sup> surgery" [place] Procedure on [id number] states "back MH back<sup>1</sup> surgery" Brown meenakshiANCELMO [place] Assessment and Plan Assessment and Plan Date Source Extracted from:Title: Progress Note * 12/01/2018 [facility] Author: Gerry Pina MD Date: 12/01/18 Impression and Plan CKD3 Multifactorial edema improved Possible diastolic CHF improved Anemia in CKD HTN Recs Renal function is largely stable Resp status is improved Follow up as OP for further renal work up D/w patient Extracted from:Title: History and Physical Author: Cecy Wolf MD Date: 11/30/18 83 yo with 1.Acute on chronic congestive heart failure(I50.9) Ordered: Admit/Condition, 11/30/18 4:27:00 CDT, S tatus: Inpatient, Acute, Expected LOS: 2 Midnights, Cecy Wolf MD, Admit MD Review/Approve Yes, Isolation: No Isolation/Standard Precautions, Acute on chronic congestive heart failure 2.Acute on chronic kidney failure(N17.9) 3.AF - Atrial fibrillation(I48.91) 4.HTN - Hypertension(I10) 5.Type 2 diabetes mellitus with stage 3 chronic kidney dise ase(E11.22) Willrule out acute OR with serial cardi ac enzymes. Monitor patient on telemetry. Consult Dr. Melo, patient's vice chairman. Patientappearscomfortableduring exam. Will monitorvital signs closely. I nsulin forglucose control. Discussed wit h patient plan of care and currently agrees. 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 Patient withhistory of thrombocytopenia. Will monitor for stability. on Eliquis inpatient Extracted from:Title: Electrophysiology 03/29/2018 [facility] Author: Laquita Huynh NP [employer] MANAGER Date: 03/29/18 Progress Daily [facility] Completed: Mar, 08:47 by Laquita Huynh NP [employer] THEATRE MANAGER RM: 412 - 1P, SW E4A JAVIER BUNCH 82y (: 1935) M Attending: Kavita Melo MD Service: Cardiology Reason for Admission: ATRIAL FIBRILLATION, CAD Working DRG: Code status: None Specified=FULL CODE Current diet: Isolation: No Isolation/Standard Precautions Allergies: NKFA, Plavix, sulfa drugs, Bactrim(hives) SUBJECTIVE Pt denies complaints OBJECTIVE Pt sitting in bed, no acute distress noted ASSESSMENT and EXAM Alert, oriented CV: IRRR, atrial fibrillation RESP: Shallow, CTA EXT: Trace edema PLAN and TREATMENT SSS: H/O PPM implant in 2014, continue to monitor. Atrial Fibrillation with RVR: Pt rate be tter controlled, continue amiodarone load. Needs anticoagulatio resumed when appropriate after bone marrow bx today. OK to initiate Eliquis 2.5 mg bid, follow-up in 1 month for planning of cardioversion. H/O DVT: Needs anticoagulation resumed, Eliquis 2.5 mg BID o k. Monoclonal Gammopathy: Heme following, p ending bone marrow bx today. Eliquis 2.5 mg [...] 2333 Tot Prot (UPE) 8 03/27 1616 [place] Free Light Chain 13.69 Lambda Free Light Teo 130.44 H Guffey/Lambda Free Ligh 0.10 L Albumin % 46.4 [...] 24 Hr Tmax: 98.4F (36.89c) at 03/29 07:5 2 Vital Signs are the last 5 in [...] (aspirin 81 mg tablet, enteric coated) 81 m g PO Daily 03/25/18 atorvastatin 40 mg PO Bedtime 03/26/18 docusate (docusate sodium 100 mg oral capsule) 100 mg PO BID 03/25/18 gabapentin (gabapentin 100 mg oral capsule) 200 mg PO BID 03/27/18 metoprolol (metoprolol tartrate) 25 mg PO Q12H 03/26/18 senna (Senokot) 8.6 mg PO BID Unscheduled Meds: None PRN Meds (8): 03/26/18 Dextrose 50% in Water IV (Dextrose 50% Syringe) 12. 5 gm IVP PRN 03/26/18 Dextrose 50% in [...] mg IV ONCE Continuous Infusions: None Extracted from:Title: Nephrology * Author: Gerry Pina MD Date: 03/27/18 Impression and Plan CKD3 Hypertensive heart and CKD3 Atrial fibrillation with RVR Chest pain Recs Renal function seems to be close to baseline Await cardiac work up and plans Avoid Nephrotoxins Thank you Dr Melo for this consultation Extracted from:Title: Neurology Consultation 04/11/2017 [facility] Author: Mila Adams NP Date: 04/09/17 Patient: JAVIER BUNCH Age: 81 years Sex: Male : 1935 Associated Diagnoses: None Author: Mila Adams NP Chief Complaint 04/08/2017 14:41 almost passed out History of Present Illness This is an 81-year old male with PMHx si gnificant for hypertension, CHF, s/p AICD/pacemaker placement (two years ago), and recent (within the past several months) history of blood in stool and thrombocy topenia of unclear etiology who presente d to [facility] ED on 04/08/17 for a cheif complaint of "near passing out episode." The patient reports that he awoke in his usual state of health yesterday m orning; was getting into the car to marcie a[place] to an outpatient appointment ("for his platelets") when he suddenly felt dizziness, further described as light headed; also became diaphoretic; r eportedly witnseed "eyes roll back into head" and very brief (1-2 seconds) period of unresponsivenss. Patient reports that awoke to his an daughter asking if he was OK; states that he did not experience incontinecne or mouth tr auma/tongue biting. Had rapid return to baseline with no addtional episodes yesterday. Was subsequently brought to [facility]; patient reports they "checked blood work there," then sent hi m here for further work up/neurological evaluation. Patient admits to one previous similar episode several months ago, in which he was walking to the throom, sat down on the commode and felt dizzy/light headed, diaphoretic and short of breath; subsequent "fell over" onto to the bathtub, no LOC, denies associated trauma. Currently, patient i s sittin gup in bed; awake and alert. De nies dizziness/lightheadedness; denies headache or neck pain. Denies weakness or unilateral weakness/numbness/tingling to any part of the body. Denies recent prob lems wtih vision, speech or swallowing. Reports that he "is feeling back to normal." Of note, patient's platelet count found to be 61 k/cmm at time of presentation here; also with azotemi a, specifically Cr 2.40. No documented h istory of CKD. No leukocytosis, UA WNL, CXR unremarkable. Neurology has been consulted to further evaluate the finding s noted above. Review of Systems Constitutional: No [...] Inpatient Medications Ordered Combivent inhalation aerosol with adapte r: 2 puff, INHALER, BID, PRN: Shortness of breath Dextrose 50% Syringe: 12.5 gm, 25 mL, IVP, PRN, PRN: Blood G lucose Results Dextrose 50% Syringe: 25 gm, 50 mL, IVP, PRN, PRN: Blood Glu cose Results Senokot: 8.6 mg, 1 tab, PO, BID Tylenol with Codeine #3 oral tablet: 1 tab, PO, Q6H, PRN: Pa in Score 6-10 allopurinol: 100 mg, 1 tab, [...] Documented Medications Suspended Combivent inhalation aerosol with adapte r: 2 puff, INHALER, BID, PRN: SOB, 0 Refill(s) Senokot S: 1 tab, PO, BID, 0 Refill(s) allopurinol 100 mg oral tablet: 100 mg, 1 tab, PO, Daily, 90 tab, 1 Refill(s) atorvastatin 40 mg oral tablet: 40 mg, 1 tab, PO, Daily, 0 R efill(s) carvedilol 25 mg oral tablet: 25 mg, 1 tab, PO, BID, 180 tab , 0 Refill(s) furosemide: 40 mg, PO, BID, [...] albuterol-ipratropium 100-20 microgram/ 4gm AERO 2 puff, IN HALER, BID Dextrose 50% 50 ml INJ syringe [...] AF - Atrial fibrillation / SNOMED CT [id number] / Confirmed Asbestosis / SNOMED CT [id number] / Confirmed Atrial fibrillation / SNOMED CT 36803435 / Confirmed Cardiac catheterization / SNOMED CT 21752478 / Confirmed CHF - Congestive heart failure / SNOMED CT 675778492 / Confi rmed Dizziness / SNOMED CT 0748341695 / Confirmed DVT - Deep vein thrombosis of lower limb / SNOMED CT 4828178 014 / Confirmed Gout / SNOMED CT [id number] / Conf irmed HTN - Hypertension / SNOMED CT 3771763725 / Confirmed OR (myocardial infarction) / SNOMED CT [id number] / Confirmed Monoclonal gammopathy / SNOMED CT CE0E78 [id number] / Confirmed low platelets Morbid obesity / SNOMED CT 445388015 / Confirmed Pain / SNOMED CT 85497804 / Confirmed Sleep apnea / SNOMED CT 041394762 / Confirmed, Active Problems (14) AF - Atrial fibrillation Asbestosis Atrial fibrillation Cardiac catheterization CHF - Congestive heart failure Dizziness DVT - Deep vein thrombosis of lower limb Gout HTN - Hypertension OR (myocardial infarction) Monoclonal gammopathy Morbid obesity Pain Sleep apnea Histories Past Medical History: Active CHF - Congestive heart failure (155417444) HTN - Hypertension (6447565805) DVT - Deep vein thrombosis of lower limb (3429067360) Sleep apnea (791939083) Atrial fibrillation (60017899) Asbestosis ([id number]) Gout ([id number]) OR (myocardial infarction) ([id number]) Monoclonal gammopathy ([id number]) Comments: 02/26/2014 CDT 04:18 CDT - Ivonne Gray RN low platelets Resolved Diabetes mellitus (089700695): Resolved. Comments: 02/26/2014 CDT 02:17 Ivonne Powell RN border line 03/30/2014 RELIABILITY ENGINEER 11:40 RELIABILITY ENGINEER - Maame Marc RN PATIENT STATES HE IS NOT A DIABETIC 01/17/2016 CDT 19:50 CDT - Ramonita Anthony RN pt states he is not a diabetic CVA - Cerebrovascular accident (230650602): Resolved. Pneumonia ([id number]): Resolved. Family History: Heart disease Sister High blood pressure Mother Heart failure Brother Type 2 diabetes mellitus Mother Sister Pacemaker care Brother Procedure history: Fusion of lumbar spine (860556130). Procedure on back (660105167). Comments: 07/20/2012 15:54 - Natalia Yu RN states "back surgery" IVC - Insertion of inferior vena caval filter ([id number]). Percutaneous transluminal balloon angiop lasty of aorta with stent placement for coarctation of aorta (7415966303). Fluoroscopic angiography of coronary art chrissie and insertion of stent (0192377806). Pacemaker care (3049607140). Comments: 01/17/2016 19:52 - Ramonita Anthony RN inserted in Apr 23, 2015 Social History Social and Psychosocial Habits Alcohol 04/08/2017 Use: Current Type: Beer Frequency: 1-2 times per year Last Use 2 years ago Stopped at age: 79 Years Substance Abuse 04/08/2017 Use: None Tobacco 02/26/2014 Use: Former smoker Exposure to Tobacco Smoke None Cigarette Smoking Last 365 Days Yes Reg Smoking Cessation Counseling Yes Comment: stop 37 yrs ago - 02/26/2014 02:28 - Leroy Gray RN 04/08/2017 Use: Former smoker Type: [...] Last Charted Temp Oral 98.3 DegF (APR 09:) Heart Rate Peripheral 97 bpm (APR 09:) Resp Rate 20 BRMIN (APR 09:) SBP 97 mmHg (APR 09) DBP 61 [...] Plan 81-year old male with PMHx significant f or hypertension, CHF, s/p AICD/pacemaker placement (two years ago), and recent (within the past several months) history of blood in stool and anemia/thrombocytope neel of unclear etiology who presented to [facility] ED on 04/08/17 for a cheif complaint of syncope vs near syncope. Episode characterized by sudden light headedness, diaphoresis, and brief (1-2 seconds) twila od of unresponsiveness. Patient then had rapid return to baseline, no asscociated incontinence or mouth trauma/tongue biting. No addtional episodes; however does admit to similar episode several months ago. Neruological exam is currently inta ct and at baseline; patient subjectively reports that he feels at baseline. 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 Wilhelm); no intervention needed nor suspected involvement with patient's current episode. Considering the f indings noted above, would most likely a ttribute patient's symptoms to a near- syncope/syncopal episode instead of an acute neurological process. Impresion: Syncope vs. near syncope; cardiac vs. ot her etiology (orthostatic, anemia/thrombocytopenia, dehydration, dysautonomia). Recommendations/Plan: -Telemetry; EKG currently in paced rhyth m. TTE pending; note recent (03/26) TTE with EF 65%. Recommend serial cardiac enzymes/troponins; also recommend to consider cardiology and/or cardiophys. consult for AICD interrogation. -Check orthostatic VS. Note patient's SB P consistently 90s-100s; Recommend review/reconcillation of patient's home antihypertensive medication regimen. -PT/OT eval and treat for functional venice l, as patient lives alone with elderly . -All other medical management per primary team and other con sultants. The plan of care above has been dicussed with Dr. Vira Johns, who agrees. Please call with questions/concerns. Thank you for the opportunity to participate in this patient's care. Addendum by Vira Johns MD on 04/09/2017 15:49 Patient seen and examined with Mila clayton. 81 yo man with syncope/presyncope. Neuro exam no focal findings. CT reviewed, negative for acute changes. Recommend syncope workup with telemetry, cardiac en zymes, and pacemaker interrogation. Rece nt echo negative for aortic stenosis. 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 PT/OT evals. No further receom mendations at this time. Please call with any questions. Extracted from:Title: Progress Note * 01/28/2014 [facility] Author: Monalisa Farmer MD Date: 01/28/14 Patient: JAVIER BUNCH Age: 78 years Sex: Male : 1935 Associated Diagnoses: None Author: Monalisa Farmer MD Subjective no chest pain, palpitations, or shortness of breath Health Status Problem list: All Problems AF - Atrial fibrillation / SNOMED CT 0181757686 / Confirmed Atrial fibrillation / SNOMED CT 46631058 / Confirmed Cardiac catheterization / SNOMED CT 12214600 / Confirmed Diabetes mellitus / SNOMED CT 014637225 / Confirmed Dizziness / SNOMED CT 1966887718 / Confirmed Fusion / SNOMED CT 93426193 / Confirmed HTN - Hypertension / SNOMED CT 6462317418 / Confirmed Pain / SNOMED CT 57388518 / Confirmed Sleep apnea / SNOMED CT 389627705 / Confirmed Inactive: Chest pain / SNOMED CT 38743312 Inactive: Cough / SNOMED CT 01922865 Inactive: Nausea / SNOMED CT 7681188800 Resolved: CHF - Congestive heart failure / SNOMED CT 8852505 14 Resolved: DVT - Deep vein thrombosis of lower limb / SNOMED CT 5737278210 Objective Meds Scheduled Meds (7):AMIODarone (Cordarone ), atorvastatin (Lipitor), carvedilol (Coreg), dabigatran (Pradaxa), gabapentin (Neurontin 400 mg oral capsule), nitroglycerin (nitroglycerin 2% ointment), pantoprazole (Protonix) Unscheduled Meds (1):cefazolin PRN Meds (10):ALPRAZolam (ALPRAZOLam), S odium Chloride 0.9% IV, acetaminophen- hydrocodone ([place] 5/325 oral tablet), acetaminophen (Tylenol), docusate (Colace 100 mg oral capsule), hydrALAZINE, morphine Sulfate, ondansetron (Zofran), sodium c hloride (BD Normal Saline Flush), tramadol (tramadol 50 mg oral tablet) One Time Meds (1):(Completed) magnesium sulfate (magnesium sulfate 2 gm in Water 50 ml) Continuous Infusions: None I&O Input/Output Record In Out Bal 01/27 24hr Tot 1550 2550 -1000 01/26 24hr Tot 515 1850 -1335 VS/Measurements Measurements from flowsheet : Measurements 01/26/2014 04:58 Heparin Dosing Weight (kg) 100.00 01/26/2014 04:56 Height 193.04 cm Height Collection Method Stated Weight 119.801 k g Weight Collection Method Measured Body Surface Area 2.5346 m2 Body Mass Index 32.15 m2 01/26/2014 04:49 Weight Collection Method Measured Current Weight 119.955 k g , Vital Signs (last 24 hrs) Last C harted Minimum Maximum Temp 98.8 (JAN 28 08:02) 98.1 (JAN 27 11:41) 99 (JAN 27 20:00) Heart Rate 60 (JAN 28 08:02) L 54 (JAN 27 15:40) 6 4 (JAN 28 00:00) Resp Rate 18 (JAN 28 08:02) 18 (JAN 27 15:40) 20 (JAN 27 11:41) SBP 139 (JAN 28 08:02) 120 (JAN 28 04:00) H 156 ( JAN 27 11:41) DBP 71 (JAN 28 08:02) L 54 (JAN 28 04:00) 71 (JAN 28 08:02) Weight 119.11 (JAN 28 05:00) General: Alert and oriented, No acute distress. Eye: Pupils are equal, round and reacti ve to light, Extraocular movements are intact, Normal conjunctiva. HENT: Normocephalic, Normal hearing, Oral mucosa is moist. Neck: Supple. Respiratory: Lungs are clear to auscultation, Respirations are non-labored. Cardiovascular: Normal rate, Regular rh ythm, No murmur, No gallop, Good pulses equal in all extremities. Gastrointestinal: Soft, Non-tender, Non-distended. Lymphatics: no cervical adnieopathy. Musculoskeletal No deformity. Integumentary: No rash. Neurologic: Alert, Oriented, Cranial Nerves II-XII are alia sly intact. Psychiatric: Cooperative, Appropriate mood and affect. Review / Management Results review: Labs (Last four charted values) WBC 7.5 (JAN 28) 6.2 (JAN 20) 6.6 (JAN 26) Hgb L 11.3 (SEP 2 1) L 11.7 (JAN 20) L 13.2 (JAN 19) Hct L 34.2 (SEP 2 1) L 36.5 (JAN 20) L 40.4 (JAN 19) Plt L 79 (JAN 28) L 71 (JAN 20) L 84 (JAN 19) Na 143 (JAN 21) 137 (JAN 20) 139 (JAN 20) 138 (JAN 19) K 4.1 (JAN 28) 4.3 (JAN 20) 4.4 (JAN 27) 4.4 (JAN 26) CO2 28 (JAN 28) 29 (SEP 20) 28 (SEP 20) 30 (JAN 26) Cl 106 (SEP 21) 104 (SEP 20) 104 (SEP 20) 102 (JAN 26) Cr H 1.7 (JAN 28 ) H 1.8 (JAN 20) H 1.8 (JAN 27) H 1.7 (JAN 26) BUN H 24 (JAN 28) H 26 (JAN 20) H 26 (JAN 27) 22 (JAN 26) [...] 1. afib with rvr and sick sinnus syndrom e s/p cardioversion-- continue amiodarone. continue pradaxa. discussed with cardiology. possible discharge today. will await final cardiology recommendations. 2. chronic systolic congestive heart will lure-- bnp a bit elevated, but clinical volume status is ok. conitnue current. 3. coronary artery disease and benign hy pertensive heart and kidney disease-- contineu current. 4. hypomagnesemia-- continue replacement . will recheck at noon and replace as needed 5. chronic kidney disease3-- contineu monitoring. 6. hyperlipidemia-- continue current. 7. anemia of chronic disease-- monitor. 8. thrombocytopenia-- has been stable on pradaxa. likely chronic and no evidence of bleeding. oyutpatient follow up with hematology. Addendum by Monalisa Farmer MD on 01/28/2014 08:13 potential benefits of pradaxa outweigh t he potential risks. discussed wtih patient and his . they seem to understand and agree Addendum by Monalisa Farmer MD on 01/28/2014 08:21 i talked to patient again about his plat elet level. he tells me that he normally sees Dr. Negron for his platelets. he saw Dr. Negron about 3 weeks ago. the patient thinks that his platelet level at samina t time was 77 (no records of that availa ble to me). patient tells me that he has been on pradaxa for a while and that he will follow up with . Addendum by Monalisa Farmer MD on 01/29/2014 08:50 urine cutlure was noted. patient had no uti symptoms. initial ua showed no leukocyte esterase or nitrite. so culture is of uncertain clincial singificance, probably just contaminant. no need for abx. Addendum by Monalisa Farmer MD on 01/29/2014 08:54 discharge time = 42 minutes Addendum by Monalisa Farmer MD on 01/29/2014 08:57 clarify: chronic diastolic congestive he art failure with ef 65% (not systolic chf) Plan of Care No Data Provided for This Section Social History Social History Date Source Social History TypeResponse 03/25/2018 [place] Substance Abuse Use: None. Alcohol Past, Type Beer. Frequency: 1-2 times p er year. Last use: 2 years ago. Stopped age 79 Years. Smoking Status Former smoker; Type: Cigarettes; Exposur e to Tobacco Smoke None; Cigarette Smoking Last 365 Days No; Reg Smoking Cessation Counseling Yes; Other Tobacco Frequency last smoked 40 years ago, pack per three days; entered on: 03/25/18 Social History TypeResponse 03/25/2018 [place] Substance Abuse Use: None. Alcohol Past, Type Beer. Frequency: 1-2 times p er year. Last use: 2 years ago. Stopped age 79 Years. Smoking Status Former smoker; Type: Cigarettes; Exposur e to Tobacco Smoke None; Cigarette Smoking Last 365 Days No; Reg Smoking Cessation Counseling Yes; Other Tobacco Frequency last smoked 40 years ago, pack per three days; entered on: 11/29/18 Social History TypeResponse 01/26/2014 [place] d Alcohol Current, Type Beer. Frequency: 3-5 times per week. Smoking Status Former smoker; Exposure to Tobacco Smoke None; Other Tobacco Frequency last smoked 40 years ago, pack per three days; Cigarette Smoking Last 365 Days No; Reg Smoking Cessation Counseling Yes Family History No Data Provided for This Section Advance Directives No Data Provided for This Section Functional Status No Data Provided for This Section
--- OUTSIDE RECORDS SUMMARY | 2020-06-04 17:00 | XMS REPORT | Continuity of Care Document ---
:1935 Author Organization [facility] t Address [address] [place] [place] [address] Care Team Providers Name Role Phone Jose Eduardo Marc Primary Care Physician Juanita Wolf Attending Clinician Ginger Morrison Attending Clinician Roshni Morrison Attending Clinician Alexus Attending Clinician Abel Catalan Attending Clinician Amanda Anderson Attending Clinician Charles Mercado Attending Clinician Chace Forbes Attending Clinician Chaitanya Monterroso Attending Clinician Lesly Cox Attending Clinician Juanita Wolf Admitting Clinician Roshni Morrison Admitting Clinician Alexus Admitting Clinician Amanda Anderson Admitting Clinician Lesly Cox Admitting Clinician Problems Condition Condition Condition Status Onset Resolution Last Treating Co mments Source Name Details Category Date Date Treatment Clinician Date RESPIRATOR Diagnosis Active 2018-11-30 Memoria Y FAILURE, 11-29 04:35:00 l CHF 00:00: [place] RESPIRATOR 00 Y FAILURE, CHF Active 11/29/2018 [facility] ACUTE ON Diagnosis Active 2019-01-17 M emoria CHRONIC 11-29 09:46:00 l CHF ACUTE ON 00:00: Pankaj pena CHRONIC 00 CHF Active 11/29/2018 [facility] J44.9 - Diagnosis Active 2017-052018-05-20 Fl moria CHRONIC 06-14 15:41:00 l OBSTRUCTIV J44.9 - 00:01: Her [place] E CHRONIC 00 PULMONARY OBSTRUCTIV R0 E PULMONARY R0 Active 8 [facility] ATRIAL Diagnosis Active 2017-052018-04-19 Mem oria FIBRILLATI 16 16:22:00 l ON, CAD ATRIAL 00:00: Noel FIBRILLATI 00 ON, CAD Active 03/25/2018 [facility] Acute deep Acute deep Disease Active 2016-05 [place] vein vein 06-14 [facility] thrombosis thrombosis 00:00: st (DVT) of (DVT) of 00 both lower both lower extremitie extremitie s s ALTERED Diagnosis Active 2016-052017-04-20 Fl evonne MENTAL 06-08 21:57:00 l STATUS ALTERED 00:00: [place] MENTAL 00 STATUS Active 04/08/2017 [facility] SENT BY Diagnosis Active 2016-052017-03-16 Me evonne DAMON 05-16 15:25:00 l SENT BY 00:00: Noel DAMON 00 Active 03/16/2017 [facility] ACUTE DEEP Diagnosis Active 2016-052017-03-22 Memoria VEIN 05-16 08:39:00 l THROMBOSIS ACUTE 00:00: Jessica nn OF LEFT DEEP VEIN 00 LOWER THROMBOSIS OF LEFT LOWER Active 03/16/2017 [facility] CHEST PAIN Diagnosis Active 2015-052016-03-17 Memoria AFIB 0 22:03:00 l CHEST 00:00: [place] PAIN AFIB 00 Active 03/09/2016 [facility] CHEST Diagnosis Active 2016-01-20 Mem oria TIGHTNESS 01-16 15:11:00 l CHEST 00:00: Noel TIGHTNESS 00 Active 01/17/2016 [facility] UNABLE TO Diagnosis Active 2015-05-28 Memoria URINATE 05-28 15:38:00 l UNABLE 00:00: [place] TO URINATE 00 Active 05/28/2015 [facility] CHEST PAIN Diagnosis Active 2014-052015-05-01 Memoria 06-21 21:54:00 l CHEST 00:00: [place] PAIN 00 Active 04/20/2015 [facility], [facility] FLANK PAIN Diagnosis Active 2015-02-02 Memoria 02-02 17:03:00 l FLANK 00:00: [place] PAIN 00 Active 02/02/2015 [facility] 722.93 - Diagnosis Active 2014-11-21 M emoria DISC DIS - 16:48:00 l NEC/NO 722.93 - 00:01: Pankaj n 724.02 - DISC DIS 00 "SPIN NEC/NO 724.02 - "SPIN Active 09/20/2014 [facility] SPITTING Diagnosis Active 2015-10-29 M emoria UP BLOOD, 07-06 10:05:00 l COUGHING SPITTING 12:00: Herm pinky UP MUCUS UP BLOOD, 00 COUGHING UP MUCUS Active 07/06/2014 [facility] 785.6 - Diagnosis Active 2013-052014-08-06 Me moria ENLARGEMEN - 10:58:00 l T LYM 785.6 - 00:01: [place] ENLARGEMEN 00 T LYM Active 03/30/2014 [facility] MEDISTINAL Diagnosis Active 2013-052014-04-02 Memoria LYMPADENOP 05-23 06:14:00 l ATHY 00:00: [place] MEDISTINAL 00 LYMPADENOP ATHY Active 03/23/2014 [facility] HEMOPTYSIS Diagnosis Active 2013-052014-02-26 Memoria 0-19 00:32:00 l 00:00: [place] HEMOPTYSIS 00 Active 02/25/2014 [facility] ACS, CHEST Diagnosis Active 2013-052014-02-27 Memoria PAIN 0-19 07:54:00 l ACS, 00:00: [place] CHEST PAIN 00 Active 02/25/2014 [facility] MULTIFOCAL Diagnosis Active 2013-052014-03-13 Memoria PNEUMONIA, 0-19 17:32:00 l HEMOPTYSIS 00:00: Pankaj n , ACS, C MULTIFOCAL 00 PNEUMONIA, HEMOPTYSIS , ACS, C Active 02/25/2014 [facility] A-FIB, Diagnosis Active 2014-02-02 Mem oria TACHYCARDI 9-18 22:29:00 l A A-FIB, 21:00: Noel TACHYCARDI 00 A Active 01/25/2014 [facility] MEDIASTINA Diagnosis Active 2012-07-21 Memoria L 3-07 11:17:00 l LYMPHADENO 00:00: Pankaj pena PAUL MEDIASTINA 00 L LYMPHADENO PAUL Active 07/14/2012 [facility] 486 - Diagnosis Active 2012-07-14 Mem oria "PNEUMONIA 1-22 15:30:00 l , ORGA" 486 - 00:01: Noel "PNEUMONIA 00 , ORGA" Active 05/31/2012 [facility] ACUTE MT, Diagnosis Active 2011-052012-03-07 Memoria NSTEMI 0-18 08:55:00 l ACUTE 00:00: Noel MT, NSTEMI 00 Active 02/25/2012 [facility] LUMBAR Diagnosis Active 2011-12-14 Mem oria SPINAL 7-24 21:47:00 l STENOSIS LUMBAR 00:00: Pankaj pena SPINAL 00 STENOSIS Active 12/01/2011 [facility] LUMBAR Diagnosis Active 2012-02-05 Mem oria STENOSIS, 5-01 15:16:00 l LUMBAR LUMBAR 00:00: Noel RADICULOPA STENOSIS, 00 THY LUMBAR RADICULOPA THY Active 09/08/2011 [facility] GI BLEED Diagnosis Active 2011-09-02 M emoria 4-18 22:00:00 l GI BLEED 15:00: Pankaj n 00 Active 08/26/2011 [facility] CHEST Diagnosis Active 2011-07-07 Mem oria PAIN, - 12:57:00 l THROMBOCYT CHEST 08:00: Jessica nn OPENIA PAIN, 00 THROMBOCYT OPENIA Active 07/05/2011 [facility] BIJAL Diagnosis Active 2011-08-22 Mem oria 05-18 15:27:00 l BIJAL 00:00: [place] 00 Active 05/18/2011 [facility] Cardiac Problem Active 2010-052018-12-03 Kaz david catheteriz - 22:16:39 l ation Cardiac 00:00: Noel (procedure catheteriz 00 ) ation (procedure ) Active 04/28/2011 Problem 12/03/2018 [facility], [facility] Cardiac Problem Active 2010-052012-07-23 Kaz david catheteriz 06-29 09:02:15 l ation Cardiac 00:00: [place] catheteriz 00 ation Active 04/28/2011 Problem 07/23/2012 [facility], [facility], [facility] ATRIAL Diagnosis Active 2010-052011-04-30 Mem oria FIB, - 15:36:00 l UNSTABLE ATRIAL 15:47: Pankaj pena ANGINA FIB, 00 UNSTABLE ANGINA Active 04/27/2011 [facility] TEAR Diagnosis Active 2010-052011-09-30 Mem oria MEDIAL 05-16 17:50:00 l MENISCUS TEAR 00:00: Noel MEDIAL 00 MENISCUS Active 03/16/2011 [facility] BLOOD IN Diagnosis Active 2010-052011-03-27 M emoria STOOL 0-06 15:38:00 l BLOOD IN 00:00: Pankaj pena STOOL 00 Active 02/12/2011 [facility] Illness, Problem 2018-12-03 Mem oria unspecifie 22:16:39 l d Illness, Pankaj n unspecifie d 12/03/2018 [facility] Immune Problem 2018-10-16 Memor ia thrombocyt 13:38:32 l 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 10/16/2018 [facility] Hypertensi Problem 2018-10-16 M emoria ve heart 13:38:32 l and Noel chronic Hypertensi kidney ve heart disease and with heart chronic failure kidney and stage disease 1 through with heart stage 4 failure chronic and stage kidney 1 through disease, stage 4 or chronic unspecifie kidney d chronic disease, kidney or disease unspecifie d chronic kidney disease 10/16/2018 [facility] Paroxysmal Problem 2018-10-16 M emoria atrial 13:38:32 l fibrillati Pankaj n on Paroxysmal atrial fibrillati on 10/16/2018 [facility] Encounter Problem 2018-10-16 Me moria for 13:38:32 l immunizati Pankaj n on Encounter for immunizati on 10/16/2018 [facility] Metabolic Problem 2018-10-16 Me moria syndrome 13:38:32 l [place] Metabolic syndrome 10/16/2018 [facility] Morbid Problem 2018-10-16 Memor ia (severe) 13:38:32 l obesity Morbid Noel due to (severe) excess obesity calories due to excess calories 10/16/2018 [facility] Dilated Problem 2018-10-16 Kaz david cardiomyop 13:38:32 l athy Dilated [place] cardiomyop athy [facility] 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 without angina pectoris 10/16/2018 [facility] Chronic Problem 2018-10-16 Kaz david kidney 13:38:32 l disease, Chronic Jessica nn stage 3 kidney (moderate) disease, stage 3 (moderate) 10/16/2018 [facility] Hyperlipid Problem 2018-10-16 M emoria emia, 13:38:32 l unspecifie Pankaj n d Hyperlipid emia, unspecifie d 10/16/2018 [facility] Bronchitis Problem 2018-10-16 M emoria , not 13:38:32 l specified [place] as acute Bronchitis or chronic , not specified as acute or chronic 10/16/2018 [facility] Unspecifie Problem 2018-10-16 M emoria d 13:38:32 l osteoarthr Pankaj n itis, Unspecifie unspecifie d d site osteoarthr itis, unspecifie d site 10/16/2018 [facility] Gout, Problem 2018-10-16 Memor ia unspecifie 13:38:32 l d Gout, Noel unspecifie d 10/16/2018 [facility] Presence Problem 2018-10-16 Mem oria of cardiac 13:38:32 l pacemaker Presence Her [place] of cardiac pacemaker 10/16/2018 [facility] Personal Problem 2018-10-16 Mem oria history of 13:38:32 l nicotine Personal Herm pinky dependence history of nicotine dependence 10/16/2018 [facility] 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 10/16/2018 [facility] Heart Problem 2018-10-16 Memor ia failure, 13:38:32 l unspecifie Heart Jessica nn d failure, unspecifie d 10/16/2018 [facility] Coronary Problem 2018-10-16 Mem oria angioplast 13:38:32 l y status Coronary Herm pinky angioplast y status 10/16/2018 [facility] Personal Problem 2018-10-16 Mem oria history of 13:38:32 l transient Personal Her [place] ischemic history of attack transient (TIA), and ischemic cerebral attack infarction (TIA), and without cerebral residual infarction deficits without residual deficits 10/16/2018 [facility] Anemia, Problem 2018-10-16 Kaz david unspecifie 13:38:32 l d Anemia, Noel unspecifie d 10/16/2018 [facility] Sleep Problem 2018-10-16 Memor ia apnea, 13:38:32 l unspecifie Sleep Jessica nn d apnea, unspecifie d 10/16/2018 [facility] Hypotensio Problem 2018-10-16 M emoria n, 13:38:32 l unspecifie Pankaj n d Hypotensio n, unspecifie d 10/16/2018 [facility] Personal Problem 2018-10-16 Mem oria history of 13:38:32 l other Personal Pankaj n venous history of thrombosis other and venous embolism thrombosis and embolism 10/16/2018 [facility] Old Problem 2018-10-16 Memor ia myocardial 13:38:32 l infarction Old Pankaj n myocardial infarction 10/16/2018 [facility] 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 13:38:32 l [place] Monoclonal gammopathy 10/16/2018 [facility] Chest pain Problem Inactiv 2012-07-23 Memoria e 09:02:15 l Chest [place] pain Inactive Problem 07/23/2012 [facility], [facility], [facility] Nausea Problem Inactiv 2012-07-23 Kaz david e 09:02:15 l Nausea Noel Inactive Problem 07/23/2012 [facility], [facility] Cough Problem Inactiv 2012-07-23 Kaz david e 09:02:15 l Cough [place] Inactive Problem 07/23/2012 [facility], [facility] Cerebrovas Problem Resolve 2018-12-03 Memoria cular d 22:16:39 l accident [place] (disorder) Cerebrovas cular accident (disorder) Resolved Problem 12/03/2018 [facility] Diabetes Problem Resolve 2018-12-03 Me moria mellitus d 22:16:39 l (disorder) Diabetes He rmann mellitus (disorder) Resolved Problem 12/03/2018 pt states he is not a diabeticPA TIENT STATES HE IS NOT A DIABETICbo rder line [facility] Pneumonia Problem Resolve 2018-12-03 M emoria (disorder) d 22:16:39 l [place] Pneumonia (disorder) Resolved Problem 12/03/2018 [facility] CHF - Problem Resolve 2012-07-23 Kaz david Congestive d 09:02:15 l heart CHF - [place] failure Congestive heart failure Resolved Problem 07/23/2012 [facility], [facility] DVT - Deep Problem Resolve 2012-07-23 Memoria vein d 09:02:15 l thrombosis DVT - Jessica nn of lower Deep vein limb thrombosis of lower limb Resolved Problem 07/23/2012 [facility], [facility] Atrial Problem Active 2018-12-03 Memor ia fibrillati 22:16:39 l on Atrial [place] (disorder) fibrillati on (disorder) Active Problem 12/03/2018 [facility] Asbestosis Problem Active 2018-12-03 M emoria (disorder) 22:16:39 l Noel Asbestosis (disorder) Active Problem 12/03/2018 [facility] Congestive Problem Active 2018-12-03 M emoria heart 22:16:39 l failure [place] (disorder) Congestive heart failure (disorder) Active Problem 12/03/2018 [facility] Dizziness Problem Active 2018-12-03 Me moria (finding) 22:16:39 l Noel Dizziness (finding) Active Problem 12/03/2018 [facility], [facility] Deep Problem Active 2018-12-03 Memor ia venous 22:16:39 l thrombosis Deep Pankaj n of lower venous extremity thrombosis (disorder) of lower extremity (disorder) Active Problem 12/03/2018 [facility], [facility] Gout Problem Active 2018-12-03 Memor ia (disorder) 22:16:39 l Gout Noel (disorder) Active Problem 12/03/2018 [facility], [facility] Hypertensi Problem Active 2018-12-03 M emoria ve 22:16:39 l disorder, [place] systemic Hypertensi arterial ve (disorder) disorder, systemic arterial (disorder) Active Problem 12/03/2018 [facility], [facility] Myocardial Problem Active 2018-12-03 M emoria infarction 22:16:39 l (disorder) Pankaj n Myocardial infarction (disorder) Active Problem 12/03/2018 [facility], [facility] Monoclonal Problem Active 2018-12-03 M emoria gammopathy 22:16:39 l (disorder) Pankaj n Monoclonal gammopathy (disorder) Active Problem 12/03/2018 low platelets [facility], [facility] Morbid Problem Active 2018-12-03 Memor ia obesity 22:16:39 l (disorder) Morbid Herm pinky obesity (disorder) Active Problem 12/03/2018 [facility] Pain Problem Active 2018-12-03 Memor ia (finding) 22:16:39 l Pain Noel (finding) Active Problem 12/03/2018 [facility] Sleep Problem Active 2018-12-03 Memor ia apnea 22:16:39 l (finding) Sleep Pankaj n apnea (finding) Active Problem 12/03/2018 [facility], [facility] Dizziness Problem Active 2011-08-30 Me moria 09:29:29 l [place] Dizziness Active Problem 08/30/2011 [facility] AF - Problem Active 2012-07-23 Memor ia Atrial 09:02:15 l fibrillati AF - Pankaj n on Atrial fibrillati on Active Problem 3 [facility], [facility], [facility] Atrial Problem Active 2012-07-23 Memor ia fibrillati 09:02:15 l on Atrial Noel fibrillati on Active Problem 3 [facility] Diabetes Problem Active 2012-07-23 Mem oria mellitus 09:02:15 l Diabetes Pankaj n mellitus Active Problem 07/23/2012 [facility] Dizziness Problem Active 2012-07-23 Me moria 09:02:15 l [place] Dizziness Active Problem 07/23/2012 [facility], [facility], [facility] Fusion Problem Active 2012-07-23 Memor ia 09:02:15 l Fusion Noel Active Problem 07/23/2012 [facility], [facility], [facility] HTN - Problem Active 2012-07-23 Memor ia Hypertensi 09:02:15 l on HTN - Noel Hypertensi on Active Problem 3 [facility], [facility] Pain Problem Active 2012-07-23 Memor ia 09:02:15 l Pain Noel Active Problem 07/23/2012 [facility], [facility], [facility] Sleep Problem Active 2012-07-23 Memor ia apnea 09:02:15 l Sleep Noel apnea Active Problem 07/23/2012 [facility] Fused Problem Active 2016-03-14 Memor ia structure 02:15:12 l (morpholog Fused Jessica nn ic structure abnormalit (morpholog y) ic abnormalit y) Active Problem 6 [facility], [facility] CHEST PAIN Diagnosis Active 2011-02-16 Memoria NOS 11:42:00 l CHEST Noel PAIN NOS Active [facility] ATRIAL Diagnosis Active 2014-02-02 Mem oria FIBRILLATI 22:29:00 l ON ATRIAL [place] FIBRILLATI ON Active [facility] ANGINA Diagnosis Active 2011-04-30 Mem oria DECUBITUS 15:36:00 l ANGINA Noel DECUBITUS Active [facility] SLEEP Diagnosis Active 2011-08-22 Mem oria APNEA NOS 15:27:00 l SLEEP [place] APNEA NOS Active [facility] GASTROINTE Diagnosis Active 2011-09-[address] HEMORR 22:00:[address] Noel [address] HEMORR NOS Active [facility] LUMB/LUMBO Diagnosis Active 2012-02-05 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 Active [facility] SPIN Diagnosis Active 2012-02-05 Mem oria STEN,LUMBR 15:16:00 l WO OMARI SPIN Noel STEN,LUMBR WO OMARI Active [facility] LUMBOSACRA Diagnosis Active 2012-02-05 Memoria L 15:16:00 l SPONDYLOSI Pankaj n S LUMBOSACRA L SPONDYLOSI S Active [facility] AMI Diagnosis Active 2012-03-07 Mem oria NOS-INITIA 08:55:00 l L EPISODE AMI Noel NOS-INITIA L EPISODE Active [facility] PNEUMONIA, Diagnosis Active 2014-03-13 Memoria ORGANISM 17:32:00 l NOS Noel PNEUMONIA, ORGANISM NOS Active [facility] ENLARGEMEN Diagnosis Active 2014-04-02 Memoria T LYMPH 06:14:00 l NODES Noel ENLARGEMEN T LYMPH NODES Active [facility] CHEST Diagnosis Active 2015-05-01 Mem oria PAIN, 21:54:00 l UNSPECIFIE CHEST Jessica nn D PAIN, UNSPECIFIE D Active [facility] ILLNESS, Diagnosis Active 2018-11-30 M emoria UNSPECIFIE 04:35:00 l D ILLNESS, Pankaj n UNSPECIFIE D Active [facility] ACUTE Diagnosis Active 2017-03-22 Mem oria EMBOLISM 08:39:00 l AND ACUTE [place] THOMBOS EMBOLISM UNSP DEEP AND VEI THOMBOS UNSP DEEP VEI Active [facility] SYNCOPE Diagnosis Active 2017-04-20 Me moria AND 21:57:00 l COLLAPSE SYNCOPE Jessica nn AND COLLAPSE Active [facility] ANEMIA, Diagnosis Active 2017-04-20 Me moria UNSPECIFIE 21:57:00 l D ANEMIA, [place] UNSPECIFIE D Active [facility] UNSPECIFIE Diagnosis Active 2018-04-19 Memoria D ATRIAL 16:22:00 l FIBRILLATI Pankaj n ON UNSPECIFIE D ATRIAL FIBRILLATI ON Active [facility] HEART Diagnosis Active 2019-01-17 Mem oria FAILURE, 09:46:00 l UNSPECIFIE HEART Jessica nn D FAILURE, UNSPECIFIE D Active [facility] BENIGN Diagnosis Active 2018-11-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:14:00 l 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 Active [facility] RECURRENT Diagnosis Active 2018-11-30 Memoria AND PERST 14:14:00 l HEMATURIA [place] W UNSP MOR RECURRENT AND PERST HEMATURIA W UNSP MOR Active [facility] Sick sinus Problem 2017-052018-10-16 2018-10-16 Memoria syndrome - 13:38:32 13:38:32 l Sick 05:28: [place] sinus 29 syndrome 8 10/16/2018 [facility] Discharge Problem 2015-05-31 2015-05-31 Memoria Diagnosis: 05-28 04:51:27 04:51:27 l Chronic 06:00: [place] renal Discharge 00 insufficie Diagnosis: ncy Chronic renal insufficie ncy 05/28/2015 05/31/2015 [facility] Discharge Problem 2015-05-31 2015-05-31 Memoria Diagnosis: 05-28 04:51:27 04:51:27 l Acute 06:00: [place] urinary Discharge 00 tract Diagnosis: infection Acute urinary tract infection 05/28/2015 05/31/2015 [facility] Discharge Problem 2015-02-05 2015-02-05 Memoria Diagnosis: 02-02 03:21:07 03:21:07 l Accidental 05:00: Pankaj n fall Discharge 00 Diagnosis: Accidental fall 02/02/2015 02/05/2015 [facility] Discharge Problem 2015-02-05 2015-02-05 Memoria Diagnosis: 02-02 03:21:07 03:21:07 l Contusion 05:00: [place] of hip Discharge 00 Diagnosis: Contusion of hip 02/02/2015 02/05/2015 [facility] Discharge Problem 2014-07-08 2014-07-08 Memoria Diagnosis: 07-06 20:37:37 20:37:37 l Hemoptysis 06:00: Pankaj n Discharge 00 Diagnosis: Hemoptysis 07/06/2014 07/08/2014 [facility] Allergies, Adverse Reactions, Alerts Allergy Allergy Status Severity Reaction(s) Onset Inactive Treating Comm ents Source Name Type Date Date Clinician Sulfamet Propensi Active 2016-05 [place] hoxazole ty to 2-05 [facility] -Trimeth adverse 00:00: st oprim reaction 00 s to drug Clopidog Propensi Active 2016-05 [place] rel ty to 205 [facility] adverse 00:00: st reaction 00 s to drug Sulfa Propensi Active 2016-05 [place] (Sulfona ty to 2-05 [facility] mide adverse 00:00: st Antibiot reaction 00 ics) s to drug sulfa sulfa Active Memoria drugs drugs l Noel Plavix Plavix Active Memoria l Noel Bactrim Bactrim Active Severe Memoria l Noel NKFA NKFA Active Memoria l Noel Social History Social Habit Start Date Stop Date Quantity Comments Source Sex Assigned At [place] M ethodist Alcohol intake 2017-04-23 2017-04-23 Current [facility] thodist 00:00:00 00:00:00 non-drinker of alcohol (finding) Social History 2014-01-26 2014-01-26 [facility] ermann 10:04:58 10:04:58 Smoking Status Start Date Stop Date Source Never smoker [place] Method t Medications Ordered Filled Start Stop Current Ordering Indication Dosage Frequency Signature Comments Components Source Medication Medication Date Date Medication? Clinician (SIG) Name Name carvedilol Yes 3.125 mg = M emoria 3.125 mg 12-01 1 tab, PO, l oral tablet 18:07: Q12H, 0 Her Refill(s) atorvastati No Notes: Kaz david n -25 (Same as: l 14:00: Lipitor) Allopurinol No Notes: Kaz david 7-25 (Same as: l 14:00: Zyloprim) gabapentin No Notes: Memor ia 100 MG Oral 24 (Same as: l Capsule 22:00: Neurontin) Eliquis No Notes: Memoria 7-24 Same as: l 22:00: Eliquis Amiodarone No Notes: Memor ia 7-24 (Same as: l 22:00: Cordarone) Saline No Notes: Memoria Flush 0.9% 24 Same as: l 14:00: BD Posiflush Sterile Furosemide No Notes: Memor ia 7-24 (Same as: l 14:00: Lasix) carvedilol No Notes: Memor ia 7-24 Give with l 14:00: food. [place] 00 (Same As: Coreg) Aspirin 81 No Notes: Do Me moria MG Enteric 7-24 not crush l Coated 14:00: or chew. Noel Tablet 00 (Same As: Ecotrin) Acetaminoph No Notes: Do M emoria en 300 MG / 7-24 not exceed l Codeine 09:27: 4gm/day of Herm pinky Phosphate 00 acetaminop 30 MG Oral hen. Tablet (Same as: [Tylenol Tylenol with with Codeine #3] Codeine # 3) Saline No Notes: Memoria Flush 0.9% 11-30 Same as: l 06:21: BD [place] 00 Posiflush Sterile apixaban Yes 2.5 mg, Memori a 2.5 MG Oral 7-24 PO, BID, 0 l Tablet 03:56: Refill(s) Pankaj n [Eliquis] 00 atorvastati Yes 40 mg = 1 M emoria n 40 mg 7-24 tab, PO, l oral tablet 03:56: Daily, 0 He rmann 00 Refill(s) losartan No 100 mg = 1 Mem oria 100 mg oral 7-24 tab, PO, l tablet 03:56: Daily, 0 [place] 00 Refill(s) Acetaminoph Yes 1 tab, PO, Memoria en 325 MG / 24 Q6H, PRN l Hydrocodone 03:56: Pain, 0 Her [place] Bitartrate 00 Refill(s) 10 MG Oral Tablet apixaban 2017-05 Yes 2.5 mg, Memori a 2.5 MG Oral 1-21 PO, Q12H, l Tablet 15:00: # 60 tab, Pankaj n [Eliquis] 00 0 Refill(s), called to pharmacy AMIODarone 2017-05 Yes 200 mg = 1 M emoria 200 mg oral 1-20 tab, PO, l tablet 19:32: BID, 0 Noel 00 Refill(s) metoprolol 2017-05 Yes 25 mg = 1 Me moria tartrate 25 1-20 tab, PO, l mg oral 19:32: Q12H, 0 [place] tablet 00 Refill(s) Amiodarone 2017-05 No Notes: Memor ia -19 (Same as: l 23:00: Cordarone) [place] 00 Fentanyl 2017-05 No 100 Memoria 1-19 microgram, l 20:12: Route: IV, ONCE, Dosing Weight 137.727, kg, Start date: 03/28/18 14:12:00 [facility] COUNSELOR, Stop date: 03/28/18 14:12:00 SUMMER COUNSELOR Midazolam 2017-05 No 2 mg, Memoria 1-19 Route: IV, l 20:12: ONCE, Dosing Weight 137.727, kg, Start date: 03/28/18 14:12:00 SUMMER COUNSELOR, Stop date: 03/28/18 14:12:00 SUMMER COUNSELOR metoprolol 2017-05 No Notes: Memor ia tartrate -19 (Same as: l 03:00: Lopressor) Warfarin 2017-05 No Notes: Frankoria 1-18 Nurse to l 23:00: ensure documentat ion of patient education per anticoagul ation policy. Avoid large intake of vitamin-K containing foods diet. (Same As: Coumadin) WASTE: F/P - P Waste Black; E - P Waste Black metoprolol 2017-05 No Notes: Memor ia tartrate 1-18 (Same as: l 20:25: Lopressor) Furosemide 2017-05 No Notes: Memor ia 40 MG Oral -18 (Same as: l Tablet 15:00: Lasix) May cause GI upset. Give with food or milk. Amiodarone 2017-05 No Notes: Memor ia 1-17 (Same as: l 23:00: Cordarone) Warfarin 2017-05 No Notes: Frankoria 1-17 Nurse to l 23:00: ensure documentat ion of patient education per anticoagul ation policy. Avoid large intake of vitamin-K containing foods diet. (Same As: Coumadin) WASTE: F/P - P Waste Black; E - P Waste Black Insulin 2017-05 No Notes: Frankoria Lispro 1-17 (Same as: l 18:50: Humalog ) Roll in palms of hands gently; Do not shake `vigorousl y. "Single Patient Use Only " WASTE: F/P - Black; E - Municipal Trash Bin Stable for 28 days at room temperatur e. Expires in days from ____Date Glucagon 2017-05 No 1 mg, Memoria 1-17 Route: IM, l 18:50: Drug form: Noel 00 PDR/INJ, PRN, Dosing Weight 137.727, kg, PRN Blood Glucose Results, Start date: 03/26/18 12:50:00 SUMMER COUNSELOR, Duration: 30 day, Stop date: 04/25/18 12:49:00 SUMMER COUNSELOR Dextrose 2017-05 No 12.5 gm, Memor ia 50% Syringe -17 25 mL, l 18:50: Route: Noel 00 IVP, Drug Form: INJ, Dosing Weight 137.727, kg, PRN, PRN Blood Glucose Results, Start date: 03/26/18 12:50:00 SUMMER COUNSELOR, Duration: 30 day, Stop date: 04/25/18 12:49:00 SUMMER COUNSELOR Senokot 2017-05 No Notes: Memoria 1-17 (Same as: l 15:00: Senokot) [place] docusate 2017-05 No Notes: Memoria sodium 100 -17 (Same as: l mg oral 15:00: Colace) Noel capsule (Do Not Crush) Allopurinol 2017-05 No Notes: Kaz david -17 (Same as: l 15:00: Zyloprim) [place] Amoxicillin 2017-05 No Notes: Kaz david / 1-17 With food. l Clavulanate 15:00: (Same as: H erm Augmentin 875) Prednisone 2017-05 No Route: PO, M emoria 1-17 Daily, l 15:00: Dosing [place] 00 Weight 137.727, kg, Start date: 03/26/18 9:00:00 SUMMER COUNSELOR, Duration: 30 day, Stop date: 04/24/18 9:00:00 SUMMER COUNSELOR Losartan 2017-05 No Notes: Memoria 1-17 (Same as: l 15:00: Cozaar) Noel 00 Aspirin 81 2017-05 No Notes: Do Me moria MG Enteric -17 not crush l Coated 15:00: or chew. Noel Tablet 00 (Same As: Ecotrin) Lovenox 2017-05 No Notes: Memoria 1-17 (Same as: l 03:00: Lovenox) [place] atorvastati 2017-05 No Notes: Kaz david n -17 (Same as: l 03:00: Lipitor) DuoNeb 2017-05 No Notes: Memoria inhalation -16 (Same as: l solution 23:22: Duoneb) Pankaj n Amiodarone 2017-05 No Notes: Memor ia -16 (Same as: l 23:00: Cordarone) gabapentin 2017-05 No Notes: Memor ia 100 MG Oral 16 (Same as: l Capsule 23:00: Neurontin) Herm pinky SENOKOT-S 2017-05 No 1 tab, Memori a 16 Route: PO, l 23:00: Dosing Weight 137.727, kg, BID, Start date: 03/25/18 17:00:00 SUMMER COUNSELOR, Duration: 30 day, Stop date: 04/24/18 9:00:00 SUMMER COUNSELOR carvedilol 2017-05 No Notes: Memor ia -16 Give with l 23:00: food. [place] 00 (Same As: Coreg) 200 ACTUAT 2017-05 No 2 puff, Kaz david Albuterol 16 Route: l 0.09 22:51: INHALER, Onel MG/ACTUAT / 00 Drug Form: Ipratropium AERO/A, [place] Dosing 0.018 Weight MG/ACTUAT 137.727, Metered kg, BID, Dose PRN Inhaler Wheezing, [Combivent] Start date: 03/25/18 16:51:00 SUMMER COUNSELOR, Duration: 30 day, Stop date: 04/24/18 16:50:00 SUMMER COUNSELOR gabapentin 2017-05 Yes 200 mg = 2 M emoria 100 MG Oral 16 cap, PO, l Capsule 22:32: BID, 0 Refill(s) Warfarin 2017-05 No See Memoria 16 Instructio l 22:32: ns, 1 mg PO EVERY OTHER DAY, 0 Refill(s) Augmentin 2017-05 No 875 mg, Memor ia 16 PO, Daily, l 22:32: # 20 tab, 0 Refill(s) carvedilol 2017-05 Yes 25 mg, PO, M emoria 1-16 BID, 0 l 22:32: Refill(s) Losartan 2017-05 No 100 mg, Memori a 1-16 PO, Daily, l 22:32: 0 Refill(s) warfarin 2017-05 No 2.5 mg = 1 Mem oria 2.5 mg oral 1-16 tab, PO, l tablet 22:32: Daily, 0 Refill(s) Prednisone 2017-05 No See Memoria 16 Instructio l 22:32: ns, 4 TABS [place] 00 DAILY FOR 4 DAYS SINCE EN 3 TABS DAILY FOR 4 DAYS,2 TABS DAILY FOR 4 DAYS,THEN 1 TAB DAILY FOR 4 DAYS, 0 Refill(s) Aspirin 81 2017-05 Yes 81 mg = 1 Me moria MG Enteric 1-16 tab, PO, l Coated 22:32: Daily, # Noel Tablet 00 90 tab, 3 Refill(s) tamsulosin 2016-05 Yes .4mg QD Take 0.4 [address]ayla ston (FLOMAX) 2-19 mg by Method[facility] 0.4 mg 11:45: mouth st capsule,ext 44 daily. ended release 24hr allopurinol 2016-05 Yes 100mg QD Take 100 [place] (ZYLOPRIM) 2-19 mg by Methodi 100 MG 11:45: mouth st tablet 44 daily. atorvastati 2016-05 Yes 40mg QD Take 40 mg Franks n (LIPITOR) 2-19 by mouth Meth ken 40 MG 11:45: daily. st tablet 44 losartan 2016-05 Yes 100mg QD Take 100 [place] (COZAAR) 2-19 mg by Methodi 100 MG 11:45: mouth st tablet 44 daily. Losartan 2016-05 No Notes: Memoria 2- (Same as: l 15:00: Cozaar) Allopurinol 2016-05 No Notes: Kaz david 2- (Same as: l 15:00: Zyloprim) atorvastati 2016-05 No Notes: Kaz david n 2- (Same as: l 15:00: Lipitor) tamsulosin 2016-05 No Notes: Memor ia 2- (Same As: l 03:00: Flomax) "Do Not Crush" Acetaminoph 2016-05 No Notes: Do M emoria en 300 MG / 2-01 not exceed l Codeine 02:05: 4gm/day of Herm pinky Phosphate acetaminop 30 MG Oral hen. Tablet (Same as: [Tylenol Tylenol with with Codeine #3] Codeine # 3) Furosemide 2016-05 No Notes: Memor ia -30 (Same as: l 23:00: Lasix) Noel 00 May cause GI upset. Give with food or milk. SENOKOT-S 2016-05 No 1 tab, Memori a 06-08 Route: PO, l 23:00: Dosing [place] 00 Weight 145.909, kg, BID, Start date: 04/08/17 17:00:00 SUMMER COUNSELOR, Duration: 30 day, Stop date: 05/08/17 9:00:00 SUMMER COUNSELOR carvedilol 2016-05 No Notes: Memor ia - Give with l 23:00: food. Noel (Same As: Coreg) Senokot 2016-05 No Notes: Memoria 06-08 (Same as: l 23:00: Senokot) Noel 200 ACTUAT 2016-05 No Notes: Memor ia Albuterol 06-08 Same as: l 0.09 22:48: Combivent [place] MG/ACTUAT / 00 Respimat Ipratropium WASTE: [place] Aerosol - 0.018 Return to MG/ACTUAT Pharmacy Metered Dose Inhaler [Combivent] Insulin 2016-05 No Notes: Memoria Lispro 06-08 Roll in l 22:41: palms of Noel 00 hands gently; Do not shake `vigorousl y. (Same as: Humalog ) "Single Patient Use Only " WASTE: F/P - Black; E - Municipal Trash Bin Stable for 28 days at room temperatur e. Expires in days from ____Date Glucagon 2016-05 No 1 mg, Memoria 06-08 Route: IM, l 22:41: Drug form: [place] PDR/INJ, PRN, Dosing Weight 145.909, kg, PRN Blood Glucose Results, Start date: 04/08/17 16:41:00 SUMMER COUNSELOR, Duration: 30 day, Stop date: 05/08/17 16:40:00 SUMMER COUNSELOR Dextrose 2016-05 No 25 gm, 50 Kaz david 50% Syringe 1-30 mL, Route: l 22:41: IVP, Drug [place] 00 Form: INJ, Dosing Weight 145.909, kg, PRN, PRN Blood Glucose Results, Start date: 04/08/17 16:41:00 SUMMER COUNSELOR, Duration: 30 day, Stop date: 05/08/17 16:40:00 SUMMER COUNSELOR carvedilol 2016-05 No 25 mg = 1 Me moria 25 mg oral 1-30 tab, PO, l tablet 20:52: BID, # 180 Jessica nn 00 tab, 0 Refill(s) Golytely 2016-05 No Notes: Memoria 1-13 (polyethyl l 19:56: irina glycol [place] 00 electrolyt e solution 4 Liter bottle) (Same as: Kranthi [place]en[place]) Acetaminoph 2016-05 No Notes: Do M emoria en 300 MG / 12 not exceed l Codeine 00:58: 4gm/day of Herm pinky Phosphate 00 acetaminop 30 MG Oral hen. Tablet (Same as: [Tylenol Tylenol with with Codeine #3] Codeine # 3) Acetaminoph 2016-05 No Notes: Do M emoria en 300 MG / 12 not exceed l Codeine 00:17: 4gm/day of Herm pinky Phosphate 00 acetaminop 30 MG Oral hen. Tablet (Same as: [Tylenol Tylenol with with Codeine #3] Codeine # 3) Amlodipine 2016-05 No Notes: Memor ia -11 (Same as: l 23:00: Norvasc) [place] 00 Potassium 2016-05 No Notes: Memori a Chloride -11 (Same as: l 18:04: K-Dur 20) Noel 00 "Do Not Crush" With food and full glass of water tramadol 2016-05 No Notes: Not Mem oria hydrochlori -11 to exceed l de 50 MG 16:41: 400mg/day. Her greenwood Oral Tablet 00 (Same As: Ultram) Tylenol 2016-05 No Notes: Do Memor ia 1-11 not exceed l 00:51: 4 gm/day. [place] 00 (Same as: Tylenol) Protonix 2016-05 No Notes: Memoria 1-10 Tablet l 17:44: should not [place] 00 be chewed or crushed. (Same as: Protonix) Enoxaparin 2016-05 No Notes: Memor ia 05-18 Nurse to l 19:30: ensure Noel 00 documentat ion of patient education per anticoagul ation policy. (Same as: Lovenox) Coumadin 2016-05 No Notes: Memoria 05-18 Nurse to l 19:05: ensure Noel 00 documentat ion of patient education per anticoagul ation policy. Avoid large intake of vitamin-K containing foods diet. (Same As: Coumadin) WASTE: F/P - P Waste Black; E - P Waste Black Potassium 2016-05 No Notes: Memori a Chloride 05-18 (Same as: l 16:51: K-Dur 20) "Do Not Crush" With food and full glass of water argatroban 2016-05 No Notes: Memor ia 100 MG/ML 05-18 Argatroban l Injectable 03:00: 50 mg/ 50 He rmann Solution 00 ml inj (1mg/1ml) WASTE: F/P - Black; E - Municipal Trash Bin MEDICATION WASTE Product Size: 50 mg Product Wasted: ___ mg bivalirudin 2016-05 No 250 mg, Mem oria 50 MG/ML 05-17 250 mL, l Injectable 17:37: Rate: Pankaj n Solution 00 Start at 0.05 mg/kg/hr, Dosing Weight 147.909, kg, Route: IV, Total Volume: 250, Start Date: 03/17/17 11:37:00 SUMMER COUNSELOR, Duration: 30 day, Stop date: 04/16/17 11:36:00 SUMMER COUNSELOR, Replace Every: 24 hr bivalirudin 2016-05 No 250 mg, Mem oria 50 MG/ML 05-17 250 mL, l Injectable 17:35: Rate: Pankaj n Solution 00 Start at 0.05 mg/kg/hr, Dosing Weight 147.909, kg, Route: IV, Total Volume: 250, Start Date: 03/17/17 11:35:00 SUMMER COUNSELOR, Duration: 30 day, Stop date: 04/16/17 11:34:00 SUMMER COUNSELOR, Replace Every: 24 hr Losartan 2016-05 No Notes: Memoria 05-17 (Same as: l 15:00: Cozaar) [place] 00 Furosemide 2016-05 No Notes: Memor ia 1-08 (Same as: l 15:00: Lasix) [place] 00 May cause GI upset. Give with food or milk. carvedilol 2016-05 No Notes: Memor ia 05-17 Give with l 15:00: food. Noel 00 (Same As: Coreg) Allopurinol 2016-05 No Notes: Kaz david 05-17 (Same as: l 15:00: Zyloprim) Noel 00 Potassium 2016-05 No Notes: Memori a Chloride 08 (Same as: l 14:17: K-Dur 20) [place] 00 "Do Not Crush" With food and full glass of water Lovenox 2016-05 No Notes: Memoria 05-17 Nurse to l 12:00: ensure Noel 00 documentat ion of patient education per anticoagul ation policy. (Same as: Lovenox) Senokot 2016-05 No Notes: Memoria 05-17 (Same as: l 03:00: Senokot) Noel 00 tamsulosin 2016-05 No Notes: Memor ia 05-17 (Same As: l 03:00: Flomax) Noel 00 "Do Not Crush" SENOKOT-S 2016-05 No 2 tab, Memori a 05-17 Route: PO, l 03:00: Dosing Weight 147.909, kg, Bedtime, Start date: 03/16/17 21:00:00 SUMMER COUNSELOR, Duration: 30 day, Stop date: 04/14/17 21:00:00 SUMMER COUNSELOR atorvastati 2016-05 No Notes: Kaz daivd n -08 (Same as: l 03:00: Lipitor) Noel 00 200 ACTUAT 2016-05 No Notes: Memor ia Albuterol 08 Same as: l 0.09 00:45: Combivent Noel MG/ACTUAT / 00 Respimat Ipratropium WASTE: [place] Aerosol - 0.018 Return to MG/ACTUAT Pharmacy Metered Dose Inhaler [Combivent] Streptococc 2016-05 No Notes: Kaz david us -08 Shake well l pneumoniae 00:35: prior to Her green[place] serotype 1 45 use (Same capsular as: antigen Prevnar diphtheria 13) [id number] protein conjugate vaccine / Streptococc us pneumoniae serotype 14 capsular antigen diphtheria [id number] protein conjugate vaccine / Streptococc us pneumoniae serotype 18C capsular antigen d carvedilol 2016-05 No 25 mg = 1 Me moria 25 mg oral 1-08 tab, PO, l tablet 00:28: BID, 0 Refill(s) Furosemide 2016-05 Yes 40 mg, PO, M emoria 1-08 BID, 0 l 00:28: Refill(s) Noel tamsulosin 2016-05 Yes 0.4 mg, Kaz david 1-08 PO, l 00:28: Bedtime, 0 Refill(s) Losartan 2016-05 Yes 100 mg, Memori a 1-08 PO, Daily, l 00:28: 0 Noel 00 Refill(s) sodium 2016-05 No 1,000 mL, Memori a chloride 05-16 Rate: 75 l 0.9% 1000 23:43: ml/hr, Pankaj n ml INJ 00 Infuse 1,000 mL over: 13.3 hr, Route: IV, Dosing Weight 147.909 kg, Total Volume: 1,000, Start date: 03/16/17 17:43:00 SUMMER COUNSELOR, Duration: 30 day, Stop date: 04/15/17 17:42:00 SUMMER COUNSELOR Lovenox 2016-05 No Notes: Memoria 05-16 Nurse to l 21:10: ensure documentat ion of patient education per anticoagul ation policy. (Same as: Lovenox) carvedilol 2015-05 Yes 25 mg = 1 Me moria 25 mg oral 1-02 tab, PO, l tablet 19:40: Q12H, # Noel 00 180 tab, 0 Refill(s) AMIODarone 2015-05 Yes 200 mg = 1 M emoria 200 mg oral 1-02 tab, PO, l tablet 19:40: BID-Meals, Jessica nn 00 # 90 tab, 0 Refill(s) Amlodipine 2015-05 No Notes: Memor ia - (Same as: l 14:00: Norvasc) carvedilol 2015-05 No Notes: Memor ia 05-11 Give with l 02:00: food. Noel 00 (Same As: Coreg) Amiodarone 2015-05 No Notes: Memor ia 05-10 (Same as: l 22:00: Cordarone) Sodium 2015-05 No 250 mL, Memoria Chloride 05-10 Route: l 0.9% IV 20:01: IVPB, [place] 00 Start date: 03/10/16 15:01:00 CDT, Duration: 30 day, Stop date: 04/09/16 14:00:00 SUMMER COUNSELOR, PRN Line Flush BD Normal 2015-05 No Notes: Memori a Saline 05-10 (Same as: l Flush 20:01: BD Posiflush) Losartan 2015-05 No Notes: Memoria 05-10 (Same as: l 14:00: Cozaar) Furosemide 2015-05 No Notes: Memor ia 40 MG Oral 05-10 (Same as: l Tablet 14:00: Lasix) May cause GI upset. Give with food or milk. Hydralazine 2015-05 No Notes: Kaz david Hydrochlori 05-10 (Same as: l de 50 MG 14:00: Apresoline Her greenwood Oral Tablet 00 ) May interfere w/enteral feedings Take With Food Amoxicillin 2015-05 No Notes: Kaz david 875 MG / 05-10 With food. l Clavulanate 14:00: (Same as: H ermann 125 MG Oral 00 Augmentin Tablet 875) Amlodipine 2015-05 No Notes: Memor ia 05-10 (Same as: l 14:00: Norvasc) Allopurinol 2015-05 No Notes: Kaz david 05-10 (Same as: l 14:00: Zyloprim) Lyrica 2015-05 No Notes: Memoria 05-10 (Same as: l 14:00: Lyrica) SENOKOT-S 2015-05 No 2 tab, Memori a 05-10 Route: PO, l 02:00: Dosing Weight 132.727, kg, Bedtime, Start date: 03/09/16 21:00:00 CDT, Duration: 30 day, Stop date: 04/07/16 21:00:00 SUMMER COUNSELOR atorvastati 2015-05 No Notes: Kaz david n 05-10 (Same as: l 02:00: Lipitor) Alprazolam 2015-05 No Notes: Memor ia 0.5 MG Oral 05-10 With food l Tablet 02:00: or milk (Same as: Xanax) Senokot 2015-05 No Notes: Memoria 05-10 (Same as: l 02:00: Senokot) Noel 00 Colchicine 2015-05 No 0.6 mg, 1 Me moria 0.6 MG Oral 05-10 tab, l Tablet 00:58: Route: PO, Jessica nn 00 Drug form: TAB, BID, Dosing Weight 132.727, kg, PRN Shortness of breath, Start date: 03/09/16 19:58:00 CDT, Duration: 30 day, Stop date: 04/08/16 19:57:00 SUMMER COUNSELOR 200 ACTUAT 2015-05 No Notes: Memor ia Albuterol 05-10 Same as: l 0.09 00:58: Combivent Noel MG/ACTUAT / 00 Respimat Ipratropium WASTE: [place] Aerosol - 0.018 Return to MG/ACTUAT Pharmacy Metered Dose Inhaler [Combivent] acetaminoph 2015-05 No Notes: Kaz david en-hydrocod 05-10 (Same as: l one 325 00:08: [place] mg-5 mg 325/5) Do oral tablet not exceed 4gm/day of acetaminop hen. Amoxicillin 2015-05 No 1 tab, PO, Memoria 875 MG / 0-31 BID, # 20 l Clavulanate 20:33: tab, 0 Herm pinky 125 MG Oral 00 Refill(s) Tablet Hydralazine 2015-05 No 50 mg = 1 M emoria Hydrochlori 0-31 tab, PO, l de 50 MG 20:33: TID, # 90 Herm pinky Oral Tablet 00 tab, 3 Refill(s) Lasix No Notes: Memoria 9-10 (Same as: l 14:00: Lasix) MEDICATION WASTE Product Size: 40 mg Product Wasted: ___ mg Aspirin No Notes: Memoria 9-10 Take with l 14:00: food. pregabalin Yes 200 mg = 1 M emoria 200 MG Oral 9-10 cap, PO, l Capsule 00:37: BID, # 30 Jessica nn [Lyrica] 00 cap, 1 Refill(s) allopurinol Yes 100 mg = 1 Memoria 100 mg oral 9-10 tab, PO, l tablet 00:37: Daily, # Noel 00 90 tab, 1 Refill(s) losartan Yes 100 mg = 1 Mem oria 100 mg oral 9-10 tab, PO, l tablet 00:37: Daily, # [place] 00 90 tab, 1 Refill(s) Alprazolam Yes 0.5 mg = 1 M emoria 0.5 MG Oral 9-10 tab, PO, l Tablet 00:37: Bedtime, # Jessica nn 00 30 tab, 0 Refill(s) Albuterol No Notes: Memori a 0.833 MG/ML 01-16 (Same as: l / 23:01: Duoneb) [place] Ipratropium 00 [place] 0.167 MG/ML Inhalant Solution [DuoNeb] Nitroglycer No Notes: Kaz david in 0.4 MG 01-16 (Same l Sublingual 23:01: as:Nitroqu H ermann Tablet 00 ick, Nitrostat) "Do Not Crush" Sublingual tablet Enoxaparin No Notes: Memor ia 01-16 (Same as: l 23:00: Lovenox) [place] 00 Docusate No Notes: Memoria 01-16 (Same as: l 22:59: Colace) [place] (Do Not Crush) Acetaminoph No Notes: Do M emoria en 01-16 not exceed l 22:59: 4 gm/day. [place] 00 (Same as: Tylenol) Ondansetron No Notes: Kaz david 01-16 (Same as: l 22:59: Zofran) Noel 00 MEDICATION WASTE Product Size: 4 mg Product Wasted: ___ mg Morphine No Notes: Memoria 01-16 (Same l 22:59: as:MORPhin Noel 00 e Sulfate) Acetaminoph No Notes: Kaz david en 325 MG / 01-16 (Same as: l Hydrocodone 22:59: [place] Jessica nn Bitartrate 00 325/5) Do 5 MG Oral not exceed Tablet 4gm/day of acetaminop hen. Lasix No Notes: Memoria 01-16 (Same as: l 22:41: Lasix) MEDICATION WASTE Product Size: 40 mg Product Wasted: __20_ mg Aspirin No Notes: Memoria 01-16 Take with l 21:29: food. Nitroglycer No Notes: Kaz david in 01-16 (Same l 21:29: as:Nitroqu ick, Nitrostat) "Do Not Crush" Sublingual tablet Saline No Notes: Memoria Flush 0.9% 01-16 (Same as: l 21:29: BD Posiflush) Nitrofurant Yes 100 mg = 1 Memoria oin 100 MG - cap, PO, l Oral 22:38: BID, X 10 [place] Capsule day, # 20 [Macrobid] cap, 0 Refill(s) Rocephin No Notes: Memoria 05-28 (Same As: l 22:12: Rocephin). Use with 100 mL NS and infuse over 30 min MEDICATION WASTE Product Size: 1000 mg Product Wasted: ___ mg Keflex 2014-05 No 500 mg, Memoria 16 Route: PO, l 22:14: Drug form: CAP, ABXQ6H, Dosing Weight 130.004, kg, Start date: 04/24/15 16:14:00, Duration: 30 day, Stop date: 05/24/15 10:14:00 Cephalexin 2014-05 Yes 500 mg = 1 M emoria 500 MG Oral 2-16 cap, PO, l Capsule 15:15: QID, X 5 Pankaj n [Keflex] day, # 20 cap, 0 Refill(s) Cefazolin 2014-05 No 1 gm, 100 Mem oria 2-15 mL, Route: l 23:00: IVPB, Drug form: INJ, ABXQ8H, Dosing Weight 130.004, kg, Start date: 04/23/15 17:00:00, Duration: 3 doses or times, Stop date: 04/24/15 9:00:00 morphine 2014-05 No Notes: Memoria Sulfate 2-14 (Same l 04:29: as:MORPhin e Sulfate) Senokot 2014-05 No Notes: Memoria 2-14 (Same as: l 03:00: Senokot) SENOKOT-S 2014-05 No 2 tab, Memori a 2-14 Route: PO, l 03:00: Dosing Weight 130.004, kg, Bedtime, Start date: 04/21/15 21:00:00, Duration: 30 day, Stop date: 05/20/15 21:00:00 atorvastati 2014-05 No Notes: Kaz david n 2-14 (Same as: l 03:00: Lipitor) Colchicine 2014-05 No 0.6 mg, 1 Me moria 0.6 MG Oral 2-13 tab, l Tablet 18:20: Route: PO, Jessica nn 00 Drug form: TAB, Daily, Dosing Weight 130.004, kg, PRN Pain Score 4-6, Start date: 04/21/15 12:20:00, Stop date: 05/21/15 12:19:00 Colchicine 2014-05 Yes 0.6 mg = 1 M emoria 0.6 MG Oral 2-13 tab, PO, l Tablet 18:19: Daily, PRN Jessica nn 00 Other -See Comment, For GOUT flare up, 0 Refill(s) Amoxicillin 2014-05 No Notes: Kaz david 875 MG / 2-13 With food. l Clavulanate 15:00: (Same as: H ermann 125 MG Oral 00 Augmentin Tablet 875) Amlodipine 2014-05 No Notes: Memor ia 2-13 (Same as: l 15:00: Norvasc) Amiodarone 2014-05 No Notes: Memor ia 2-13 (Same as: l 15:00: Cordarone) Colchicine 2014-05 No 0.6 mg, 1 Me moria 0.6 MG Oral 2-13 tab, l Tablet 15:00: Route: PO, Jessica nn 00 Drug form: TAB, Daily, Dosing Weight 130.004, kg, Start date: 04/21/15 9:00:00, Duration: 30 day, Stop date: 05/20/15 9:00:00 Furosemide 2014-05 No Notes: Memor ia 40 MG Oral 2-13 (Same as: l Tablet 15:00: Lasix) May cause GI upset. Give with food or milk. Lovenox 2014-05 No Notes: Memoria 2-13 (Same as: l 15:00: Lovenox) metoprolol 2014-05 No Notes: Memor ia 2-13 (Same as: l 15:00: Toprol XL) May split tab, but do not crush. gabapentin 2014-05 No Notes: Memor ia 300 MG Oral 2-13 (Same as: l Capsule 14:00: Neurontin) Hydralazine 2014-05 No Notes: Kaz david 2-13 (Same as: l 14:00: Apresoline ) May interfere w/enteral feedings Take With Food Lyrica 2014-05 No Notes: Memoria 2-13 Same as l 07:35: Lyrica 00 200 ACTUAT 2014-05 No Notes: Memor ia Albuterol 2-13 Same as: l 0.09 07:30: Combivent [place] MG/ACTUAT / 00 Respimat Ipratropium [place] 0.018 MG/ACTUAT Metered Dose Inhaler [Combivent] Alprazolam 2014-05 No Notes: Memor ia 2-13 With food l 07:30: or milk (Same as: Xanax) nitroglycer 2014-05 No Notes: 1 Me moria in 2% 2-13 gram is l topical 07:12: approximat Herm pinky ointment 00 elio 1 inch of nitroglyce rin ointment (20 mg NTG per gram) (Same as:Nitro-B id) Furosemide 2014-05 Yes 40 mg = 1 Me moria 40 MG Oral 2-13 tab, PO, l Tablet 07:11: BID, 0 [place] 00 Refill(s) SENOKOT-S 2014-05 Yes 2 tab, PO, Me moria 2-13 Bedtime, 0 l 07:11: Refill(s) amLODIPine 2014-05 Yes 10 mg = 1 Me moria 10 mg oral 2-13 tab, PO, l tablet 07:11: Daily, 0 Noel 00 Refill(s) Amoxicillin 2014-05 No 1 tab, PO, Memoria 875 MG / 2-13 BID, # 20 l Clavulanate 07:11: tab, 0 Herm pinky 125 MG Oral 00 Refill(s) Tablet Protonix 2014-05 No Notes: Memoria 2-13 Tablet l 07:11: should not [place] 00 be chewed or crushed. (Same as: Protonix) Hydralazine 2014-05 Yes 50 mg, PO, Memoria 2-13 TID, 0 l 07:11: Refill(s) Noel 00 Colchicine 2014-05 No 0.6 mg = 1 M emoria 0.6 MG Oral 2-13 tab, PO, 0 l Tablet 07:11: Refill(s) Pankaj n 00 pregabalin 2014-05 Yes 50 mg = 1 Me moria 50 MG Oral 2-13 cap, PO, l Capsule 07:11: PRN, daily Herm pinky [Lyrica] 00 PRN, 0 Refill(s) Sodium 2014-05 No 250 mL, Memoria Chloride -13 Route: l 0.9% IV 07:09: IVPB, [place] 00 Start date: 04/21/15 1:09:00, Duration: 30 day, Stop date: 05/21/15 1:08:00, PRN Line Flush BD Normal 2014-05 No Notes: Memori a Saline 06-22 (Same as: l Flush 07:09: BD Noel 00 Posiflush) acetaminoph 2014-05 No Notes: Do M emoria en-codeine - not exceed l 300 mg-30 07:08: 4gm/day of He rmann mg oral 00 acetaminop tablet hen. (Same as: Tylenol with Codeine # 3) tramadol No 50 mg = 1 Kaz david hydrochlori 02-02 tab, PO, l de 50 MG 23:23: Q4H, PRN Jessica nn Oral Tablet 00 pain, # 20 [Ultram] tab, 0 Refill(s) Acetaminoph No Notes: Kaz david en 325 MG / 02-02 (Same as: l Hydrocodone 21:30: [place] Jessica nn Bitartrate 00 325/5) Do 5 MG Oral not exceed Tablet 4gm/day of [[place] acetaminop 5/325] hen. Saline No Notes: Memoria Flush 0.9% 02-02 (Same as: l 21:18: BD [place] 00 Posiflush) Barium No Notes: Memoria Sulfate 02-02 Same as l 21:18: Readi-Cat [place] 00 2 Morphine No Notes: Memoria 02-02 (Same l 21:18: as:MORPhin e Sulfate) Saline No Notes: Memoria Flush 0.9% 07-07 (Same as: l 02:05: BD Posiflush) acetaminoph 2013-05 No Notes: Do M emoria en-codeine 06-02 not exceed l #3 14:55: 4gm/day of acetaminop hen. (Same as: Tylenol with Codeine # 3) Acetaminoph 2013-05 No Notes: Do M emoria en 06-02 not exceed l 14:55: 4 gm/day. (Same as: Tylenol) gabapentin 2013-05 Yes 600 mg = 2 M emoria 300 MG Oral 05-30 cap, PO, l Capsule 19:56: TID, 0 Noel 00 Refill(s) Zinacef 2013-05 No Notes: Memoria 05-30 (Same As: l 18:00: Kefurox, Zinacef) Hydralazine 2013-05 No Notes: Kaz david Hydrochlori 0-27 (Same as: l de 50 MG 13:00: Apresoline Her greenwood Oral Tablet 00 ) May interfere w/enteral feedings Take With Food Hydralazine 2013-05 Yes 50 mg = 1 M emoria Hydrochlori 0-27 tab, PO, l de 50 MG 12:50: TID, # 90 Herm pinky Oral Tablet 00 tab, 0 Refill(s) Aspirin 325 2013-05 Yes 325 mg, Mem oria MG Enteric 0-27 PO, Daily, l Coated 12:50: # 100 tab, Jessica nn Tablet 00 0 Refill(s) Potassium 2013-05 No Notes: Memori a Chloride 20 0-27 (Same as: l MEQ 12:48: K-Dur 20) [place] Extended 00 "Do Not Release Crush" Tablet With food and full glass of water Bumex 2013-05 No Notes: Memoria 0-26 (Same As: l 17:43: Bumex) Neurontin 2013-05 No Notes: Memori a 0-26 (Same as: l 14:00: Neurontin) Noel 00 gabapentin 2013-05 Yes 400 mg = 1 M emoria 400 MG Oral 0-26 cap, PO, l Capsule 11:49: TID, # 90 Jessica nn 00 cap, 0 Refill(s) Pradaxa 2013-05 No Notes: DO Memor ia 0-25 NOT break, l 14:00: chew or [place] 00 open capsules for administra tion. 120 ACTUAT 2013-05 Yes 2 Memoria Budesonide 0-25 inhalation l 0.16 13:15: , [place] MG/ACTUAT / 00 INHALATION formoterol , Q12H, # fumarate 10 gm, 0 0.0045 Refill(s) MG/ACTUAT Metered Dose Inhaler [Symbicort] valsartan 2013-05 No 160 mg = 1 Me moria 160 mg oral 0-25 tab, PO, l tablet 13:15: Daily, # Noel 00 30 tab, 0 Refill(s) Furosemide 2013-05 Yes 40 mg = 1 Me moria 40 MG Oral 0-25 tab, PO, l Tablet 13:15: BID, # 60 Pankaj n 00 tab, 0 Refill(s) Lasix 2013-05 No Notes: Memoria 0-24 (Same as: l 22:00: Lasix) [place] 00 May cause GI upset. Give with food or milk. Diovan 2013-05 No Notes: Memoria 0-24 Same as l 18:17: Diovan [place] 00 homatropine 2013-05 No Notes: Kaz david -hydrocodon 0-24 (Same as: l e 15:10: Hycodan, Noel 00 Hydromet) 120 ACTUAT 2013-05 No Notes: Memor ia Budesonide 0-24 (Same as: l 0.16 15:09: Symbicort) Noel MG/ACTUAT / 00 formoterol fumarate 0.0045 MG/ACTUAT Metered Dose Inhaler [Symbicort] 12 HR 2013-05 No 5 ml, Memoria Chlorphenir 0-24 Route: PO, l amine 15:08: Drug Form: Pankaj n Maleate 1.6 00 SUSPER, MG/ML / Dosing Hydrocodone Weight Bitartrate 127.1, kg, 2 MG/ML Q12H, PRN Extended as needed Release for cough, Suspension Start [Tussionex date: [facility] 03/02/14 ER] 10:08:00, Duration: 30 day, Stop date: 04/01/14 10:07:00 Albuterol 2013-05 No Notes: Memori a 0.833 MG/ML 0-24 (Same as: l / 15:05: Duoneb) Ipratropium 18 Chata[place]ier 0.167 MG/ML Inhalant Solution [DuoNeb] Lasix 2013-05 No Notes: Memoria 0-24 (Same as: l 14:21: Lasix) Norvasc 2013-05 No Notes: Memoria 0-24 (Same as: l 14:00: Norvasc) cefpodoxime 2013-05 Yes 200 mg = 1 Memoria 200 MG Oral 0-24 tab, PO, l Tablet 12:42: Q12H, # 14 Jessica nn [Vantin] 00 tab, 0 Refill(s) Robitussin- 2013-05 Yes 5 mL, PO, M emoria AC oral 0-24 Q4H, l syrup 12:42: Cough, # Noel 00 120 mL, 0 Refill(s) Amlodipine 2013-05 Yes 10 mg, PO, M emoria 10 MG Oral 0-24 Daily, # l Tablet 12:42: 30 tab, 0 Pankaj n [Norvasc] 00 Refill(s) Lasix 2013-05 No Notes: Memoria 0-23 (Same as: l 16:52: Lasix) Procrit 2013-05 No Notes: Memoria 0-22 (Same as: l 22:00: Procrit) epoetin dottie 10,000 unit/1 ml VL Flumazenil 2013-05 No Notes: Memor ia 0-22 (Same as: l 17:59: Romazicon) Naloxone 2013-05 No Notes: Memoria 0-22 (Same as: l 17:59: Narcan) / NS 500 2013-05 No 500 mL, Kaz david mL 0-22 Rate: 75 l 14:08: ml/hr, Infuse over: 6.7 hr, Route: IV, Dosing Weight 127.1 kg, Total Volume: 500, Start date: 02/28/14 9:08:00, Duration: 6 hr, Stop date: 02/28/14 15:07:00 Magnesium 2013-05 No Notes: Memori a Sulfate 0-22 (Same as: l 14:06: MgSO4) Noel Hydralazine 2013-05 No Notes: Kaz david Hydrochlori 0-22 (Same as: l de 50 MG 02:00: Apresoline Her greenwood Oral Tablet 00 ) May interfere w/enteral feedings Take With Food Tessalon 2013-05 No Notes: Memoria Perles 0-21 (Same As: l 22:00: Tessalon [place] 00 Perles) "Do Not Crush" Budesonide 2013-05 No Notes: Memor ia 0.25 MG/ML 0-21 (Same As: l Inhalant 14:00: Pulmicort) Her greenwodo Solution 00 [Pulmicort] Protonix 2013-05 No Notes: Memoria 0-21 Tablet l 14:00: should not Noel 00 be chewed or crushed. (Same as: Protonix) Allopurinol 2013-05 No Notes: Kaz david 0-21 (Same as: l 14:00: Zyloprim) [place] 00 Magnesium 2013-05 No 2 gm, 50 Kaz david Sulfate 0-21 mL, Route: l 12:19: IVPB, Drug [place] 00 form: INJ, ONCE, Dosing Weight 127.1, kg, Total dose = 2 gm, Start date: 02/27/14 7:19:00, Duration: 1 doses or times, Stop date: 02/27/14 7:19:00 Hydralazine 2013-05 No Notes: Kaz david Hydrochlori 0-21 (Same as: l de 50 MG 05:00: Apresoline Her greenwood Oral Tablet 00 ) May interfere w/enteral feedings Take With Food atorvastati 2013-05 No 40 mg, Kaz david n 0-21 Route: PO, l 02:00: Drug form: [place] TAB, Bedtime, Dosing Weight 126.3, kg, Start date: 02/26/14 21:00:00, Duration: 30 day, Stop date: 03/27/14 21:00:00 isosorbide 2013-05 No Notes: Memor ia dinitrate 0-21 (Same l extended 02:00: as:Isordil Her greenwood release 00 ) Take on empty stomach/ full glass of water. Do not crush. Albuterol 2013-05 No Notes: Memori a 0.833 MG/ML 0-21 (Same as: l / 02:00: Duoneb) Noel Ipratropium 00 Chataignier 0.167 MG/ML Inhalant Solution [DuoNeb] Coreg 2013-05 No Notes: Memoria 0-21 Give with l 02:00: food. Noel 00 (Same As: Coreg) Acetylcyste 2013-05 No 600 mg, 3 M emoria ine 200 0-21 mL, Route: l MG/ML 00:00: NEB, Drug Noel Inhalant 00 Form: Solution SOLN, Dosing Weight 126.3, kg, RQID, Start date: 02/26/14 19:00:00, Duration: 30 day, Stop date: 03/28/14 15:00:00 Azithromyci 2013-05 No Notes: Kaz david n 0-20 (Same As: l 23:00: Zithromax Noel 00 IV) Ceftriaxone 2013-05 No Notes: Kaz david 0-20 (Same As: l 23:00: Rocephin). [place] 00 Use with 100ml NS mini-bag PLUS and infuse over 30 min Robitussin- 2013-05 No Notes: Kaz david AC oral 0-20 (Same As: l syrup 22:24: Robitussin Pankaj n 00 AC) Albuterol 2013-05 No Notes: Memori a 0.833 MG/ML 0-20 (Same as: l / 22:24: Duoneb) Noel Ipratropium 00 Chataignier 0.167 MG/ML Inhalant Solution [DuoNeb] Acetylcyste 2013-05 No 600 mg, 3 M emoria ine 200 0-20 mL, Route: l MG/ML 22:10: PO, Drug [place] Inhalant 00 form: Solution SOLN, BID, Dosing Weight 126.3, kg, Priority: NOW, Start date: 02/26/14 17:10:00, Duration: 1 day, Stop date: 02/27/14 17:00:00 Amiodarone 2013-05 No 200 mg, Kaz david 0-20 Route: PO, l 22:00: Drug form: [place] 00 TAB, BID, Dosing Weight 126.3, kg, Start date: 02/26/14 17:00:00, Duration: 30 day, Stop date: 03/28/14 9:00:00 carvedilol 2013-05 No 12.5 mg, Mem oria 0-20 Route: PO, l 22:00: Drug form: Noel 00 TAB, BID, Dosing Weight 126.3, kg, Start date: 02/26/14 17:00:00, Duration: 30 day, Stop date: 03/28/14 9:00:00 gabapentin 2013-05 No Notes: Memor ia 400 MG Oral 0-20 (Same as: l Capsule 22:00: Neurontin) Herm pinky [Neurontin] 00 tramadol 2013-05 No Notes: Not Mem oria hydrochlori 0-20 to exceed l de 50 MG 18:24: 400mg/day. Her greenwood Oral Tablet 00 (Same As: Ultram) Alprazolam 2013-05 No Notes: Memor ia 0-20 With food l 18:23: or milk [place] 00 (Same as: Xanax) 200 ACTUAT 2013-05 No Notes: Memor ia Albuterol 0-20 Same as: l 0.09 18:23: Combivent Noel MG/ACTUAT / 00 Respimat Ipratropium Chataignier 0.018 MG/ACTUAT Metered Dose Inhaler [Combivent] Cordarone 2013-05 No Notes: Memori a 0-20 (Same as: l 18:10: Cordarone) Noel 00 Coreg 2013-05 No Notes: Memoria 0-20 Give with l 18:09: food. [place] 00 (Same As: Coreg) atorvastati 2013-05 Yes 40 mg = 1 M emoria n 40 mg 0-20 tab, PO, l oral tablet 09:14: Bedtime, 0 Noel 00 Refill(s) carvedilol 2013-05 Yes 12.5 mg = Me moria 12.5 mg 0-20 1 tab, PO, l oral tablet 09:14: BID, 0 Herm Refill(s) allopurinol 2013-05 Yes 100 mg = 1 Memoria 100 mg oral 0-20 tab, PO, l tablet 09:14: Daily, 0 [place] 00 Refill(s) AMIODarone 2013-05 Yes 200 mg = 1 M emoria 200 mg oral 0-20 tab, PO, l tablet 09:14: BID, 0 Noel 00 Refill(s) Sodium 2013-05 No 250 mL, Memoria Chloride 0-20 Route: l 0.9% IV 07:42: IVPB, Start date: 02/26/14 2:42:00, Duration: 30 day, Stop date: 03/28/14 1:41:00, PRN Line Flush BD Normal 2013-05 No Notes: Memori a Saline 0-20 (Same as: l Flush 07:42: BD Noel 00 Posiflush) aspirin 2013-05 No Notes: Memoria 0-20 Take with l 07:34: food. Ondansetron 2013-05 No Notes: Kaz david 0-20 (Same as: l 07:34: Zofran) Morphine 2013-05 No Notes: Memoria 0-20 (Same l 07:34: as:MORPhin [place] 00 e Sulfate) aspirin 2013-05 No Notes: Memoria 0-20 Take with l 05:28: food. Morphine 2013-05 No Notes: Memoria 0-20 (Same l 04:27: as:MORPhin Noel 00 e Sulfate) atorvastati Yes 40 mg = 2 M emoria n 20 mg -21 tab, PO, l oral tablet 13:00: Bedtime, # Noel 00 60 tab, 0 Refill(s) AMIODarone Yes 200 mg = 1 M emoria 200 mg oral 21 tab, PO, l tablet 13:00: BID, # 60 Pankaj n 00 tab, 0 Refill(s) dabigatran Yes 150 mg = 1 M emoria etexilate -21 cap, PO, l 150 MG Oral 13:00: BID, # 60 H ermann Capsule 00 cap, 0 [Pradaxa] Refill(s) carvedilol Yes 12.5 mg = Me moria 12.5 mg 21 1 tab, PO, l oral tablet 13:00: BID, # 60 H ermann 00 tab, 0 Refill(s) Docusate No Notes: Memoria Sodium 100 01-27 (Same as: l MG Oral 15:38: Colace) [place] Capsule 00 (Do Not [Colace] Crush) Coreg No Notes: Memoria - Give with l 14:00: food. [place] 00 (Same As: Coreg) Cordarone No Notes: Memori a 01-27 (Same as: l 14:00: Cordarone) [place] Magnesium No 2 gm, 50 Kaz david Sulfate 9-20 mL, Route: l 13:07: IVPB, Drug [place] 00 form: INJ, ONCE, Dosing Weight 119.801, kg, Start date: 01/27/14 8:07:00, Duration: 2 hr, Stop date: 01/27/14 8:07:00 Lipitor No Notes: Memoria 01-27 (Same As: l 02:00: Lipitor) [place] Magnesium No 2 gm, 50 Kaz david Sulfate 9-20 mL, Route: l 00:17: IVPB, Drug [place] 00 form: INJ, ONCE, Dosing Weight 119.801, kg, Total dose = 2 gm, Start date: 01/26/14 19:17:00, Duration: 1 doses or times, Stop date: 01/26/14 19:17:00 AMIODarone No 2 mg/ml. Me moria 900 mg in 01-26 Use Glass l D5W 500 ml 21:30: Bottle or He rmann IV 900 mg + 00 Non PVC Dextrose 5% Bag "Use in Water IV 0.22 482 mL micron in-line filter" Amiodarone No 2 mg/ml. Me moria 01-26 "Recommend l 21:29: ation: Use [place] 00 an in-line filter during administra tion for continuous infusions to reduce the incidence of phlebitis" (Same as: Cordarone) Pradaxa No Notes: DO Memor ia 01-26 NOT break, l 15:41: chew or [place] 00 open capsules for administra tion. Aspirin 81 No Notes: Do Me moria MG Enteric 01-26 not crush l Coated 14:00: or chew. Noel Tablet 00 (Same As: Ecotrin) gabapentin No Notes: Memor ia 400 MG Oral 01-26 (Same as: l Capsule 14:00: Neurontin) Herm pinky [Neurontin] 00 Digoxin No Notes: Memoria 01-26 Take on an l 14:00: Empty [place] Stomach (Same as: Lanoxin) Coreg No Notes: Memoria 01-26 Give with l 14:00: food. [place] 00 (Same As: Coreg) Nitroglycer No Notes: 1 Me moria in 0.02 01-26 gram is l MG/MG 13:00: approximat Pankaj n Topical 00 elio 1 inch Ointment of nitroglyce rin ointment (20 mg NTG per gram) (Same as:Nitro-B id) Protonix No Notes: Memoria 01-26 Tablet l 12:30: should not [place] be chewed or crushed. (Same as: Protonix) tramadol No Notes: Not Mem oria hydrochlori 01-26 to exceed l de 50 MG 11:56: 400mg/day. Her greenwood Oral Tablet 00 (Same As: Ultram) Alprazolam No Notes: Memor ia 01-26 With food l 11:55: or milk [place] (Same as: Xanax) Morphine No Notes: Memoria 01-26 (Same as: l 11:52: MORPhine Noel 00 Sulfate) Acetaminoph No Notes: Kaz david en 325 MG / 01-26 (Same as: l Hydrocodone 11:52: [place] Jessica nn Bitartrate 00 325/5) Do 5 MG Oral not exceed Tablet 4gm/day of [[place]udson acetaminop 5/325] hen. Lasix No Notes: Memoria 01-26 (Same as: l 11:51: Lasix) Noel 00 Zofran No Notes: Memoria 01-26 (Same as: l 11:51: Zofran) Noel Tylenol No Notes: Do Memor ia 01-26 not exceed l 11:51: 4 gm/day. Noel 00 (Same as: Tylenol) Hydralazine No Notes: Kaz david 01-26 (Same as: l 11:50: Apresoline Noel ) Push over 5 minutes Sodium No 250 mL, Memoria Chloride 01-26 Route: l 0.9% IV 11:20: IVPB, Start date: 01/26/14 6:20:00, Duration: 30 day, Stop date: 02/25/14 6:19:00, PRN Line Flush BD Normal No Notes: Memori a Saline 01-26 (Same as: l Flush 11:20: BD Posiflush) digoxin No Notes: Memoria 01-26 (Same as: l 11:20: Lanoxin) dabigatran No PO, BID, 0 M emoria etexilate 01-26 Refill(s) l 150 MG Oral 10:22: Pankaj n Capsule 00 [Pradaxa] Protonix Yes 40 mg, PO, Mem oria 01-26 Daily, # l 10:22: 30 tab, 0 Noel 00 Refill(s) gabapentin Yes PO, BID, 0 M emoria 400 MG Oral 01-26 Refill(s) l Capsule 10:22: Noel [Neurontin] 00 tramadol Yes PO, Q12H, Kaz david hydrochlori 01-26 Pain, 0 l de 50 MG 10:22: Refill(s) Herm pinky Oral Tablet 00 200 ACTUAT Yes INHALER, Mem oria Albuterol 01-26 SOB, 0 l 0.09 10:22: Refill(s) Noel MG/ACTUAT / 00 Ipratropium Chataignier 0.018 MG/ACTUAT Metered Dose Inhaler [Combivent] Digoxin No 125 Memoria 01-26 microgram, l 10:22: PO, Daily, [place] 00 0 Refill(s) carvedilol No 25 mg = 1 Me moria 25 MG Oral 01-26 tab, PO, l Tablet 10:22: BID, # 180 Jessica nn [Coreg] 00 tab, 0 Refill(s) [place] Yes PO, PRN, Memoria 10/325 oral 3-13 Substituti l tablet 20:45: on [place] 32 Allowed, Maintenanc e Protonix 40 Yes PO, Daily, Memoria mg oral 3-13 Substituti l enteric 20:45: on Allowed Herm pinky coated 03 tablet enalapril 5 2012- Yes PO, BID, Me moria mg oral 3-13 Substituti l tablet 20:44: on Allowed Jessica nn 18 Coumadin 4 2012-0 Yes PO, Daily, M emoria mg oral 3-13 Substituti l tablet 20:43: on Allowed Jessica nn 21 Omnipaque Yes Arnaldo R 100 mL, M emoria 300 3-04 Morrison 400 ml/hr, l 18:00: Route: IV, [place] Drug Form: SOLN, ONCE, Start date: 07/11/12 12:00:00, Stop date: 07/11/12 12:00:00 Omnipaque Yes Arnaldo R 100 mL, M emoria 300 3-04 Morrison 400 ml/hr, l 17:40: Route: IV, Noel Drug Form: SOLN, ONCE, Start date: 07/11/12 11:40:00, Stop date: 07/11/12 11:40:00 Neurontin 2011-05 No Bhagwat 600 mg, 2 Memoria 0-20 [place] cap, l 14:00: m Catalan Route: PO, Herm pinky Drug form: CAP, TID, Start date: 02/27/12 9:00:00, Duration: 30 day, Stop date: 03/27/12 17:00:00 Demadex 2011-05 No Bhagwat 10 mg, 1 Mem oria 0-20 [place] tab, l 14:00: m Catalan Route: PO, Herm pinky Drug form: TAB, Daily, Start date: 02/27/12 9:00:00, Duration: 30 day, Stop date: 03/27/12 9:00:00 Xanax 2011-05 No Bhagwat 0.5 mg, Memori a 0-20 [place] 0.5 tab, l 00:50: m Catalan Route: PO, Herm pinky 00 Drug form: TAB, Daily, Start date: 02/26/12 19:50:00, Duration: 30 day, Stop date: 03/27/12 9:00:00 Betapace 2011-05 No Bhagwat 80 mg, 1 Me moria 0-20 [place] tab, l 00:49: m Cataaln Route: PO, Herm pinky 00 Drug form: TAB, BID, Start date: 02/26/12 19:49:00, Duration: 30 day, Stop date: 03/27/12 17:00:00 Phenergan 2011- No Bhagwat 25 mg, 1 M emoria 0-20 [place] tab, l 00:46: m Catalan Route: PO, Herm pinky 00 Drug form: TAB, Q6H, PRN Nausea & Vomiting, Start date: 02/26/12 19:46:00, Duration: 30 day, Stop date: 03/27/12 19:45:00 Protonix 2011-05 No Bhagwat 40 mg, 1 Me moria 0-20 [place] tab, l 00:46: m Catalan Route: PO, Herm pinky 00 Drug form: ECTAB, Before Dinner, Start date: 02/26/12 19:46:00, Duration: 30 day, Stop date: 03/27/12 16:30:00 acetaminoph 2011- No Bhagwat 1 tab, M emoria en-hydrocod 0-20 [place] Route: PO, l one 325 00:45: m Catalan Drug Form: H ermann mg-10 mg 00 TAB, Q6H, oral tablet PRN Pain Score 4-6, Start date: 02/26/12 19:45:00, Duration: 30 day, Stop date: 03/27/12 19:44:00 Zaroxolyn 2011-05 No Bhagwat 5 mg, 2 Me moria 0-20 [place] tab, l 00:44: m Catalan Route: PO, Herm pinky 00 Drug form: TAB, Daily, Start date: 02/26/12 19:44:00, Duration: 30 day, Stop date: 03/27/12 9:00:00 Lipitor 2011-05 No Bhagwat 10 mg, 1 Mem oria 0-20 [place] tab, l 00:43: m Catalan Route: PO, Herm pinky 00 Drug form: TAB, Daily, Start date: 02/26/12 19:43:00, Duration: 30 day, Stop date: 03/27/12 9:00:00 Prinivil 2011-05 No Bhagwat 2.5 mg, Mem oria 0-19 [place] 0.5 tab, l 14:00: m Catalan Route: PO, Herm pinky 00 Drug form: TAB, Daily, Start date: 02/26/12 9:00:00, Duration: 30 day, Stop date: 03/26/12 9:00:00 Lopressor 2011-05 No Bhagwat 25 mg, 1 M emoria 0-19 [place] tab, l 14:00: m Catalan Route: PO, Herm pinky 00 Drug form: TAB, Q12H, Start date: 02/26/12 9:00:00, Duration: 30 day, Stop date: 03/26/12 21:00:00 aspirin 325 2011-05 No Bhagwat 325 mg, 1 Memoria mg tablet 0-19 [place] tab, l 14:00: m Catalan Route: PO, Herm pinky 00 Drug form: TAB, Daily, Start date: 02/26/12 9:00:00, Duration: 30 day, Stop date: 03/26/12 9:00:00 Lovenox 2011-05 No Bhagwat 120 mg, Kaz david 0-19 [place] 0.8 mL, l 06:00: m Catalan Route: [place] 00 SUB-Q, Drug form: INJ, [id number], Start date: 02/26/12 1:00:00, Duration: 30 day, Stop date: 03/26/12 13:00:00 morphine 2011-05 No Bhagwat 4 mg, 0.5 M emoria Sulfate 0-19 [place] mL, Route: l 05:46: m Catalan IV, Drug Pankaj n 00 form: INJ, Q4H, PRN Pain, Start date: 02/26/12 0:46:00, Duration: 30 day, Stop date: 03/27/12 0:45:00 nitroglycer 2011-05 No Bhagwat 0.4 mg, 1 Memoria in 0.4 mg 0-19 [place] tab, l sublingual 05:46: m Catalan Route: SL, Noel tablet 00 Drug form: TAB, Q5Min, PRN Chest Pain, Start date: 02/26/12 0:46:00, Duration: 30 day, Stop date: 03/26/12 23:45:00 Sodium 2011-05 No Bhagwat 250 mL, Memor ia Chloride 0-19 [place] Route: l 0.9% IV 05:45: m Catalan IVPB, Pankaj n 00 Start date: 02/26/12 0:45:00, Duration: 30 day, Stop date: 03/26/12 23:44:00, PRN Line Flush BD Normal 2011-05 No Bhagwat 10 mL, Mem oria Saline 0-19 [place] Route: l Flush 05:45: m Catalan IVP, Drug Herm pinky 00 Form: INJ, PRN, PRN Line Flush, Start date: 02/26/12 0:45:00, Duration: 30 day, Stop date: 03/26/12 23:44:00 [place] Yes Steffi 1 tab, PO, Kaz david 10/325 oral 12-07 Randee Q6H, PRN, l tablet 18:18: Judith-Pr 40 tab, He rmann 59 ashad for pain, Substituti on Allowed, Soft Stop, TAB Medrol Yes Steffi As Memoria Dosepak 4 731 Randee directed l mg Tablet 18:17: Judith-Pr on package [place] 13 ashad instructio ns, PO, Daily, 1 Pack, Substituti on Allowed, Take with or without foodTake with or without food Hudson /325 No Steffi 1 tab, Me moria oral tablet 12-06 Randee Route: PO, l 21:00: Judith-Pr Drug Form: H ermann 00 ashad TAB, Q4H, PRN Pain Score 4-6, Start date: 12/07/11 16:00:00, Duration: 30 day, Stop date: 01/06/12 15:59:00 magnesium No Rhea 150 ml, Kaz david citrate 12-05 Ana Route: PO, l 15:06: Francisco Javier Drug Form: Herm pinky 00 LIQ, ONCE, Start date: 12/06/11 10:06:00, Stop date: 12/06/11 10:06:00 heparin 2012-0 No Rhea 7,500 Memoria 5000 12-04 Ana unit, 1.5 l units/mL 21:00: Francisco Javier mL, Route: Noel injectable 00 SUB-Q, solution Drug form: INJ, Q8H, Start date: 12/05/11 16:00:00, Duration: 30 day, Stop date: 01/04/12 8:00:00 senna 2011- No Iva Pankaj 8.6 mg, 1 M emoria 12-04 tab, l 14:00: Route: PO, [place] 00 Drug Form: TAB, BID, Start date: 12/05/11 9:00:00, Duration: 30 day, Stop date: 01/03/12 17:00:00 Colace 100 2011-0 No Iva Pankaj 100 mg, 1 Memoria mg oral 12-04 cap, l capsule 14:00: Route: PO, Herm pinky 00 Drug form: CAP, BID, Start date: 12/05/11 9:00:00, Duration: 30 day, Stop date: 01/03/12 17:00:00 NS 1,000 mL No Rhea 1,000 mL, Memoria 12-04 Ana Rate: 75 l 13:34: Francisco Javier ml/hr, [place] 00 Infuse over: 13.3 hr, Route: IV, Dosing Weight 119.091 kg, Total Volume: 1,000, Start date: 12/05/11 8:34:00, Duration: 30 day, Stop date: 01/04/12 8:33:00 cefazolin + No Adan 2 gm, Mem oria Sodium 12-04 Lovy Route: l Chloride 11:00: IVPB, Drug Her greenwood 0.9% IV 100 00 form: mL PDR/INJ, [id number], Start date: 12/05/11 6:00:00, Duration: 4 doses or times, Stop date: 12/06/11 6:00:00 dexamethaso 2011- No Adan 4 mg, 1 M emoria ne 12-04 Lovy mL, Route: l 11:00: IV, Drug Noel 00 form: INJ, Q6H, Start date: 12/05/11 6:00:00, Duration: 12 doses or times, Stop date: 12/08/11 0:00:00 magnesium 2012-0 No Adan 2 gm, 50 Me moria sulfate 12-04 Lovy mL, Route: l 10:00: IVPB, Drug Noel 00 form: INJ, ONCE, Start date: 12/05/11 5:00:00, Stop date: 12/05/11 5:00:00 Dilaudid No Steffi 0.5 mg, Kaz david 12-04 Randee 0.25 mL, l 07:05: Judith-Pr Route: IV, H ermann ashad Drug form: INJ, Q3H, PRN Pain Score 4-6, Start date: 12/05/11 2:05:00, Duration: 30 day, Stop date: 01/04/12 2:04:00 ondansetron No Rhea 4 mg, 2 Me moria 12-04 Ana mL, Route: l 04:51: Francisco Javier IVP, Drug Jessica nn form: INJ, ONCE, PRN Nausea & Vomiting, Start date: 12/04/11 23:51:00 hydromorpho No Rhea 0.5 mg, Me moria ne 12-04 Ana 0.25 mL, l 04:51: Francisco Javier Route: Noel IVP, Drug form: INJ, Q5Min, PRN Pain Score 4-6, Start date: 12/04/11 23:51:00, Duration: 5 doses or times, Stop date: Limited # of times naloxone No Rhea 0.04 mg, Kaz david 12-04 Ana 0.1 mL, l 04:51: Francisco Javier Route: Noel IVP, Drug form: INJ, Q2MIN, PRN Narcotic Reversal, Start date: 12/04/11 23:51:00, Duration: 8 doses or times, Stop date: Limited # of times flumazenil No Hrea 0.2 mg, 2 M emoria 12-04 Ana mL, Route: l 04:51: Francisco Javier IVP, Drug Jessica nn form: INJ, PRN, PRN Benzodiaze pine Reversal, Initial dose, Start date: 12/04/11 23:51:00, Duration: 30 day, Stop date: 01/03/12 23:50:00 niCARdipine No Anayeli 0.25 mg, Memoria 12-04 Lexie 0.1 mL, l 04:51: Route: [place] 00 IVP, Drug form: INJ, Q5Min, PRN Elevated BP, Start date: 12/04/11 23:51:00, Duration: 4 doses or times, Stop date: 12/05/11 4:00:00 NS + KCL No Rhea 1,000 mL, Mem oria 20mEq/L 12-03 Ana Rate: 100 l 1000ml 04:15: Francisco Javier ml/hr, Pankaj n (Premix) 00 Infuse 1,000 mL over: 10 hr, Route: IV, Dosing Weight 119.091 kg, Total Volume: 1,000, Start date: 12/03/11 23:15:00, Duration: 30 day, Stop date: 01/02/12 23:14:00 Humulin N 2011- No Adan 10 unit, Me moria 12-02 Lovy 0.1 mL, l 22:30: Route: [place] SUB-Q, Drug form: INJ, ONCE, Start date: 12/03/11 17:30:00, Stop date: 12/03/11 17:30:00 Humulin R 2011-0 No Adan 7 unit, Mem oria 100 7-26 Lovy 0.07 mL, l units/mL 22:20: Route: [place] injectable 00 SUB-Q, solution Drug form: SOLN, Sliding Scale, PRN Blood Glucose Results, Start date: 12/03/11 17:20:00, Duration: 30 day, Stop date: 01/02/12 17:19:00 Humulin R 2011-0 No Adan 5 unit, Mem oria 100 7-26 Lovy 0.05 mL, l units/mL 22:19: Route: Noel injectable 00 SUB-Q, solution Drug form: SOLN, Sliding Scale, PRN Blood Glucose Results, Start date: 12/03/11 17:19:00, Duration: 30 day, Stop date: 01/02/12 17:18:00 Humulin R 2011-0 No Adan 4 unit, Mem oria 100 7-26 Lovy 0.04 mL, l units/mL 22:17: Route: [place] injectable 00 SUB-Q, solution Drug form: SOLN, Sliding Scale, PRN Blood Glucose Results, Start date: 12/03/11 17:17:00, Duration: 30 day, Stop date: 01/02/12 17:16:00 Humulin R 2011- No Adan 2 unit, Mem oria 100 - Lovy 0.02 mL, l units/mL 22:16: Route: [place] injectable 00 SUB-Q, solution Drug form: SOLN, Sliding Scale, PRN Blood Glucose Results, Start date: 12/03/11 17:16:00, Duration: 30 day, Stop date: 01/02/12 17:15:00 Humulin R No Adan 1 unit, Mem oria 100 - Lovy 0.01 mL, l units/mL 22:15: Route: [place] injectable 00 SUB-Q, solution Drug form: SOLN, Sliding Scale, PRN Blood Glucose Results, Start date: 12/03/11 17:15:00, Duration: 30 day, Stop date: 01/02/12 17:14:00 Dextrose No Adan 50 mL, Memor ia 50% in 12-02 Lovy Route: IV, l Water IV 22:14: Start date: 12/03/11 17:14:00, Duration: 30 day, Stop date: 01/02/12 17:13:00, PRN Blood Glucose Results Dextrose No Adan 25 mL, Memor ia 50% in 12-02 Lovy Route: IV, l Water IV 22:00: Start date: 12/03/11 17:00:00, Duration: 30 day, Stop date: 01/02/12 16:59:00, PRN Blood Glucose Results insulin No Adan 10 unit, Kaz david isophane-CHISELER HEAD 12-02 Lovy 0.1 mL, l H 17:38: Route: [place] 00 SUB-Q, Drug form: INJ, ONCE, Start date: 12/03/11 12:38:00, Stop date: 12/03/11 12:38:00 methylPREDN No Adan 60 mg, 1.5 Memoria ISolone 12-02 Lovy mL, Route: l 00:30: IV, Drug form: INJ, Daily, Start date: 12/02/11 19:30:00, Duration: 2 doses or times, Stop date: 12/03/11 9:00:00 torsemide 2011-0 No Adan 10 mg, 1 Me moria 7-25 Lovy tab, l 14:00: Route: PO, [place] Drug form: TAB, Daily, Start date: 12/02/11 9:00:00, Duration: 30 day, Stop date: 12/31/11 9:00:00 sotalol AF 2011-0 No Adan 80 mg, 1 M emoria 80 mg oral 7-25 Lovy tab, l tablet 14:00: Route: PO, Jessica nn Drug form: TAB, BID, Start date: 12/02/11 9:00:00, Duration: 30 day, Stop date: 12/31/11 17:00:00 pantoprazol 2011-0 No Adan 40 mg, 1 Memoria e 7-25 Lovy tab, l 14:00: Route: PO, Noel 00 Drug form: ECTAB, Daily, Start date: 12/02/11 9:00:00, Duration: 30 day, Stop date: 12/31/11 9:00:00 Combivent 2011-0 No Adan 2 Memori a inhalation 7-25 Lovy inhalation l aerosol 14:00: , Route: Pankaj pena with 00 INHALER, adapter Drug Form: AERO/A, Daily, Start date: 12/02/11 9:00:00, Duration: 30 day, Stop date: 12/31/11 9:00:00 lisinopril 2011-0 No Adan 10 mg, 1 M emoria 7-25 Lovy tab, l 02:00: Route: PO, Noel 00 Drug form: TAB, BID, Start date: 12/01/11 21:00:00, Duration: 30 day, Stop date: 12/31/11 17:00:00 gabapentin 2011-0 No Adan 600 mg, 2 Memoria 600 mg oral 7-25 Lovy cap, l tablet 02:00: Route: PO, Jessica nn Drug form: CAP, TID, Start date: 12/01/11 21:00:00, Duration: 30 day, Stop date: 12/31/11 14:00:00 atorvastati 2011-0 No Adan 10 mg, 1 Memoria n 7-25 Lovy tab, l 02:00: Route: PO, Drug form: TAB, QPM, Start date: 12/01/11 21:00:00, Duration: 30 day, Stop date: 12/31/11 17:00:00 promethazin 2011-0 No Adan 25 mg, 1 Memoria e 7-25 Lovy tab, l 00:21: Route: PO, Drug form: TAB, Q12H, PRN as needed for nausea/vom iting, Start date: 12/01/11 19:21:00, Duration: 30 day, Stop date: 12/31/11 19:20:00 ALPRAZOLam 2011-0 No Adan 0.5 mg, 1 Memoria 7-25 Lovy tab, l 00:21: Route: PO, Drug form: TAB, Daily, PRN as needed for anxiety, Start date: 12/01/11 19:21:00, Duration: 30 day, Stop date: 12/31/11 19:20:00 Hudson 0 No Steffi 1 tab, Memoria 10/325 oral 7-25 Randee Route: PO, l tablet 00:20: Judith-Pr Drug Form: ashad TAB, Q6H, PRN as needed for pain, Start date: 12/01/11 19:20:00, Duration: 30 day, Stop date: 12/31/11 19:19:00 temazepam 2011-0 No Adan 15 mg, 1 Me moria 7-25 Lovy cap, l 00:15: Route: PO, Drug form: CAP, Bedtime, PRN Insomnia, Start date: 12/01/11 19:15:00, Duration: 30 day, Stop date: 12/31/11 19:14:00 atorvastati 2011-0 Yes Adan 10 mg, 1 Memoria n 10 mg 7-24 Lovy tab, PO, l oral tablet 22:26: Daily, 30 H ermann 28 tab, Substituti on Allowed, TAB Hudson 0 No Steffi 1 tab, PO, Kaz david 10/325 oral 7-24 Randee Q6H, PRN, l tablet 22:26: Judiht-Pr 24 tab, He rmann 11 ashad for pain, Substituti on Allowed, Soft Stop pantoprazol No Adan 40 mg, 1 Memoria e 40 mg 7-24 Lovy tab, PO, l oral 22:24: Daily, 30 [place] enteric 40 tab, coated Substituti tablet on Allowed, ECTAB gabapentin Yes Adan 600 mg, 1 Memoria 600 mg oral 7-24 Lovy tab, PO, l tablet 22:24: TID, 270 Noel 23 tab, Substituti on Allowed Protonix 40 Yes Yury R 40 mg, 1 Memoria mg oral 4-20 Anderson tab, PO, l enteric 18:12: Daily, 30 Jessica nn coated 44 tab, 1, 1, tablet Substituti on Allowed, ECTAB Coreg 3.125 Yes Yury R 3.125 mg, Memoria mg oral 4-20 Anderson 1 tab, PO, l tablet 18:12: BID, 60 [place] 14 tab, 1, 1, Substituti on Allowed, TAB Hudson 5/325 Yes Yury R 1 tab, PO, Memoria oral tablet 4-20 Anderson Q4-6H, l 18:04: PRN, 30 Noel 08 tab, as needed for pain, Substituti on Allowed, Maintenanc e Flagyl 500 Yes Yury R 500 mg, 1 Memoria mg oral 4-20 Anderson tab, PO, l tablet 18:03: Q8H, 39 Noel 45 tab, Substituti on Allowed, TAB Cipro 500 Yes Yury R 500 mg, 1 Memoria mg oral 4-20 Anderson tab, PO, l tablet 18:03: Q12H, 26 Noel 19 tab, Substituti on Allowed, TAB Cipro No Yury R 400 mg, Mem oria 4-20 Anderson 200 mL, l 02:00: Route: [place] 00 IVPB, Drug form: INJ, Q12H, Start date: 08/27/11 21:00:00, Duration: 30 day, Stop date: 09/26/11 9:00:00 Flagyl No Yury R 500 mg, Me moria 4-19 Anderson 100 mL, l 21:00: Route: [place] IVPB, Drug form: INJ, Q8H, Start date: 08/27/11 16:00:00, Duration: 30 day, Stop date: 09/26/11 8:00:00 Lyrica 2011- No Yury R 75 mg, 1 M emoria 19 Anderson cap, l 14:00: Route: PO, Drug form: CAP, Daily, Start date: 08/27/11 9:00:00, Duration: 30 day, Stop date: 09/25/11 9:00:00 lisinopril No Yury R 10 mg, 2 Memoria - Anderson tab, l 14:00: Route: PO, Drug form: TAB, BID, Start date: 08/27/11 9:00:00, Duration: 30 day, Stop date: 09/25/11 17:00:00 gabapentin 2011-0 No Yury R 600 mg, 2 Memoria 600 mg oral 08-26 Justin cap, l tablet 14:00: Route: PO, Drug form: CAP, TID, Start date: 08/27/11 9:00:00, Duration: 30 day, Stop date: 09/25/11 17:00:00 Coreg No Yury R 3.125 mg, M emoria 08-26 Anderson 1 tab, l 14:00: Route: PO, Drug form: TAB, BID, Start date: 08/27/11 9:00:00, Stop date: 09/25/11 17:00:00 Protonix No Arnaldo R 40 mg, 1 M emoria 08-26 Morrison tab, l 14:00: Route: PO, Drug form: ECTAB, Daily, Start date: 08/27/11 9:00:00, Duration: 30 day, Stop date: 09/25/11 9:00:00 Visipaque 2011- Yes Juno 32,000 mg, M emoria 08-26 Abdulaziz 100 mL, l 13:33: Cunningham Route: IVP, Drug form: INJ, ONCE, Start date: 08/27/11 8:33:00, Stop date: 08/27/11 8:33:00 sotalol No Yury R 80 mg, 1 Memoria 08-26 Justin tab, l 02:40: Route: PO, Noel Drug form: TAB, BID, Start date: 08/26/11 21:40:00, Duration: 30 day, Stop date: 09/25/11 17:00:00 ipratropium 2011- No Arnaldo R 0.5 mg, Memoria 0.02% 4-19 Morrison 2.5 mL, l inhalation 01:00: Route: Jessica nn solution 00 NEB, Drug form: SOLN, Q4H, Start date: 08/26/11 20:00:00, Duration: 30 day, Stop date: 09/25/11 16:00:00 albuterol 2011- No Arnaldo R 2.49 mg, 3 Memoria 0.083% 4-19 Morrison mL, Route: l inhalation 01:00: NEB, Drug He rmann solution 00 form: SOLN, Q4H, Start date: 08/26/11 20:00:00, Duration: 30 day, Stop date: 09/25/11 16:00:00 Restoril 2011- No Yury R 15 mg, 1 Memoria 4-19 Anderson cap, l 00:55: Route: PO, [place] 00 Drug form: CAP, Bedtime, PRN Sleep, Start date: 08/26/11 19:55:00, Duration: 30 day, Stop date: 09/25/11 19:54:00 Hudson 5/325 2011- No Yury R 1 tab, Memoria oral tablet 4-19 Justin Route: PO, l 00:55: Drug Form: TAB, Q4H, PRN Pain, Start date: 08/26/11 19:55:00, Duration: 30 day, Stop date: 09/25/11 19:54:00 insulin 2011- No Yury R 4 unit, M emoria aspart 4-19 Justin 0.04 mL, l 00:38: Route: [place] 00 SUB-Q, Drug form: SOLN, Bedtime, PRN Blood Glucose Results, Start date: 08/26/11 19:38:00, Duration: 30 day, Stop date: 09/25/11 19:37:00 Dextrose 2011-0 No Yury R 12.5 gm, Memoria 50% Syringe 4-19 Justin 25 mL, l 00:38: Route: Noel 00 IVP, Drug Form: INJ, PRN, PRN Blood Glucose Results, Start date: 08/26/11 19:38:00, Duration: 30 day, Stop date: 09/25/11 19:37:00 glucagon No Yury R 1 mg, Me moria -19 Justin Route: IM, l 00:38: Drug form: PDR/INJ, PRN, PRN Blood Glucose Results, Start date: 08/26/11 19:38:00, Duration: 30 day, Stop date: 09/25/11 19:37:00 ALPRAZOLam No Yury R 0.5 mg, 1 Memoria 08-26 Justin tab, l 00:36: Route: PO, Drug form: TAB, Daily, PRN as needed for anxiety, Start date: 08/26/11 19:36:00, Duration: 30 day, Stop date: 09/25/11 19:35:00 levofloxaci No Yury R 750 mg, Memoria n 08-25 Anderson 150 mL, l 23:00: Route: IV, Drug form: SOLN, Q24H, Start date: 08/26/11 18:00:00, Duration: 30 day, Stop date: 09/24/11 18:00:00 cefepime No Yury R 1 gm, Me moria 08-25 Justin Route: IV, l 23:00: Daily, Start date: 08/26/11 18:00:00, Duration: 30 day, Stop date: 09/24/11 18:00:00 BD No Arnaldo R 15 mL, Memoria Posiflush 08-25 Morrison Route: l SF 22:34: IVP, Drug Form: INJ, PRN, PRN Line Flush, Start date: 08/26/11 17:34:00, Duration: 30 day, Stop date: 09/25/11 17:33:00 Jantoven 4 No 4 mg, 1 Kaz david mg oral 18 tab, PO, l tablet 22:13: QPM, 30 Noel 52 tab, Substituti on Allowed, TAB Lyrica 75 Yes Yury R 75 mg, 1 Memoria mg oral 4-18 Anderson cap, PO, l capsule 22:13: Daily, 90 Jessica nn 13 cap, Substituti on Allowed, CAP sotalol 80 2011- Yes Yury R 80 mg, 1 Memoria mg oral 4-18 Anderson tab, PO, l tablet 22:12: BID, 180 Noel 43 tab, Substituti on Allowed, TAB omeprazole Yes 20 mg, 1 Mem oria 20 mg oral 4-18 cap, PO, l delayed 22:11: Daily, 30 Jessica nn release 45 cap, capsule Substituti on Allowed metFORmin Yes 500 mg, 1 Mem oria 500 mg oral 4-18 tab, PO, l tablet 22:09: Daily, 30 Pankaj n 17 tab, Substituti on Allowed torsemide Yes 10 mg, 1 Kaz david 10 mg oral 4-18 tab, PO, l tablet 22:08: Daily, 30 Paknaj n 06 tab, Substituti on Allowed, TAB Combivent Yes 2 puff, Memor ia inhalation -18 INHALER, l aerosol 22:07: Daily, 14 Jessica nn with 17 gm, adapter Substituti on Allowed, Maintenanc e morphine No Arnaldo R 1 mg, 0.5 Memoria Sulfate 4-18 Morrison mL, Route: l 22:07: IV, Drug form: INJ, Q4H, PRN as needed for pain, Start date: 08/26/11 17:07:00, Duration: 30 day, Stop date: 09/25/11 17:06:00 Tylenol No Arnaldo R 650 mg, 2 M emoria 4-18 Morrison tab, l 22:03: Route: PO, Noel 00 Drug form: TAB, Q4H, PRN Pain, Start date: 08/26/11 17:03:00, Duration: 30 day, Stop date: 09/25/11 17:02:00 Sodium 2011-0 No Arnaldo R 1,000 mL, Me moria Chloride 4-18 Morrison Rate: 70 l 0.9% IV 21:59: ml/hr, [place] 1,000 mL 00 Infuse over: 14.3 hr, Route: IV, Dosing Weight 129.091 kg, Total Volume: 1,000, Start date: 08/26/11 16:59:00, Duration: 30 day, Stop date: 09/25/11 16:58:00 Demadex 2012-0 No Oscar 10 mg, 1 Kaz david 2-28 Nien-Diane tab, l 15:00: Darian Route: PO, Noel Drug form: TAB, Daily, Start date: 07/07/11 9:00:00, Duration: 30 day, Stop date: 08/05/11 9:00:00 Glucophage 2012-0 No Oscar 500 mg, 1 Memoria 2-28 Nien-Diane tab, l 15:00: Darian Route: PO, Noel 00 Drug form: TAB, Daily, Start date: 07/07/11 9:00:00, Duration: 30 day, Stop date: 08/05/11 9:00:00 Xanax 2011-0 No Evaristo J 0.5 mg, 1 Kaz david - Hoberman tab, l 03:00: Route: PO, [place] 00 Drug form: TAB, Bedtime, Start date: 07/06/11 21:00:00, Duration: 30 day, Stop date: 08/04/11 21:00:00 Lipitor 2011-0 No Oscar 10 mg, 1 Kaz david 2-28 Nien-Diane tab, l 03:00: Darian Route: PO, [place] 00 Drug form: TAB, Bedtime, Start date: 07/06/11 21:00:00, Duration: 30 day, Stop date: 08/04/11 21:00:00 niacin 500 2011-0 No Oscar 500 mg, 1 Memoria mg oral -28 Nien-Diane tab, l tablet, 03:00: Darian Route: PO, Herm pinky Drug form: release ERTAB, Bedtime, Start date: 07/06/11 21:00:00, Duration: 30 day, Stop date: 08/04/11 21:00:00 Coumadin 2011-0 No Evaristo J 4.5 mg, Mem oria -27 Hoberman 1.5 tab, l 23:00: Route: PO, [place] 00 Drug form: TAB, Q5PM, Start date: 07/06/11 17:00:00, Duration: 30 day, Stop date: 08/04/11 17:00:00 Isom 3-6-9 2011- No Oscar Isom Mem oria 1200 mg 2-27 Nien-Diane 3-6-9 1200 l (own med) 23:00: Darian mg (own Jessica nn med), 1,200 mg, Drug form: MISC, Route: PO, TID, 07/06/11 17:00:00, Duration: 30 day, Stop date: 08/05/11 13:00:00 Protonix No Evaristo J 40 mg, 1 Me moria 2-27 Hoberman tab, l 22:30: Route: PO, Drug form: ECTAB, Before Dinner, Start date: 07/06/11 16:30:00, Duration: 30 day, Stop date: 08/04/11 16:30:00 K-Dur 10 2011- No Oscar 10 mEq, 1 Me moria - Nien-Diane tab, l 20:44: Darian Route: PO, Drug form: ERTAB, ONCE, Start date: 07/06/11 14:44:00, Stop date: 07/06/11 14:44:00 Neurontin 2011- No Oscar 600 mg, 2 M emoria -27 Nien-Diane cap, l 19:32: Darian Route: PO, Drug form: CAP, TID, Start date: 07/06/11 13:32:00, Duration: 30 day, Stop date: 08/05/11 13:00:00 Lasix 0 No Oscar 40 mg, 1 Memori a -27 Nien-Diane tab, l 19:31: Darian Route: PO, Drug form: TAB, Daily, Start date: 07/06/11 13:31:00, Duration: 30 day, Stop date: 08/05/11 9:00:00 Phenergan 2011-0 No Oscar 25 mg, 1 Me moria 2-27 Nien-Diane tab, l 19:30: Darian Route: PO, Drug form: TAB, Q12H, PRN Nausea, Start date: 07/06/11 13:30:00, Duration: 30 day, Stop date: 08/05/11 13:29:00 Betapace 2011-0 No Evaristo J 80 mg, 1 Me moria - Hoberman tab, l 15:00: Route: PO, Noel 00 Drug form: TAB, Q12H, Start date: 07/06/11 9:00:00, Duration: 30 day, Stop date: 08/04/11 21:00:00 DiaBeta 2011-0 No Evaristo J 2.5 mg, 1 Me moria - Hoberman tab, l 15:00: Route: PO, [place] 00 Drug form: TAB, TID, Start date: 07/06/11 9:00:00, Duration: 30 day, Stop date: 08/04/11 17:00:00 K-Dur 10 2011-0 No Evaristo J 10 mEq, 1 M emoria 07-06 Hoberman tab, l 15:00: Route: PO, Noel 00 Drug form: ERTAB, Daily, Start date: 07/06/11 9:00:00, Duration: 30 day, Stop date: 08/04/11 9:00:00 Zaroxolyn 2011-0 No Evaristo J 5 mg, 2 Me moria - Hoberman tab, l 15:00: Route: PO, [place] 00 Drug form: TAB, Daily, Start date: 07/06/11 9:00:00, Duration: 30 day, Stop date: 08/04/11 9:00:00 Prinivil 2011-0 No Oscar 10 mg, 1 Mem oria 07-06 Nien-Diane tab, l 15:00: Darian Route: PO, [place] 00 Drug form: TAB, Daily, Start date: 07/06/11 9:00:00, Duration: 30 day, Stop date: 08/04/11 9:00:00 nitroglycer 2011-0 No Oscar 1 inch, M emoria in 2% 07-06 Nien-Diane Route: l topical 12:00: Darian TOP, Drug Jessica nn ointment 00 form: OINT, TID, Start date: 07/06/11 6:00:00, Duration: 30 day, Stop date: 08/04/11 18:00:00 Astramorph 2011-0 No Oscar 4 mg, 4 Me moria PF 07-06 Nien-Diane mL, Route: l 10:45: Darian IVP, Drug form: INJ, Q2H, PRN Pain Score 7-10, Start date: 07/06/11 4:45:00, Duration: 30 day, Stop date: 08/05/11 4:44:00 acetaminoph No Oscar 1 tab, Me moria en-hydrocod 07-06 Nien-Diane Route: PO, l one 325 10:44: Darian Drug Form: Herm pinky mg-5 mg 00 TAB, Q4H, oral tablet PRN Pain Score 1-5, Start date: 07/06/11 4:44:00, Duration: 30 day, Stop date: 08/05/11 4:43:00 glucagon No Oscar 1 mg, Memori a 07-06 Nien-Diane Route: IV, l 10:41: Darian Drug form: [place] 00 PDR/INJ, PRN, PRN Blood Glucose Results, Start date: 07/06/11 4:41:00, Duration: 30 day, Stop date: 08/05/11 5:40:00 Dextrose No Oscar 50 mL, Memor ia 50% in 07-06 Nien-Diane Route: l Water IV 10:41: Darian IVP, PRN, Herm pinky 00 Blood Glucose Results, Start date: 07/06/11 4:41:00, Duration: 30 day, Stop date: 08/05/11 5:40:00 NovoLog No Oscar 10 unit, Kaz david FlexPen 07-06 Nien-Diane 0.1 mL, l 10:41: Darian Route: [place] 00 SUB-Q, Drug form: SOLN, Sliding Scale, PRN Blood Glucose Results, Start date: 07/06/11 4:41:00, Duration: 30 day, Stop date: 08/05/11 5:40:00 lactulose No Oscar 20 gm, 30 M emoria 07-06 Nien-Diane mL, Route: l 10:41: Draian PO, Drug [place] 00 form: SYRP, Daily, PRN Constipati on, Start date: 07/06/11 4:41:00, Duration: 30 day, Stop date: 08/05/11 4:40:00 Restoril 2011- No Oscar 30 mg, 1 Mem oria 2- Nien-Diane cap, l 10:41: Darian Route: PO, Noel 00 Drug form: CAP, Bedtime, PRN Sleep, Start date: 07/06/11 4:41:00, Duration: 30 day, Stop date: 08/05/11 4:40:00 Tylenol No Oscar 650 mg, 2 Mem oria - Nien-Diane tab, l 10:40: Darian Route: PO, [place] 00 Drug form: TAB, Q4H, PRN Pain/Fever , Start date: 07/06/11 4:40:00, Duration: 30 day, Stop date: 08/05/11 4:39:00 Sodium 2011- No Oscar 250 mL, Memori a Chloride 07-06 Nien-Diane Route: l 0.9% IV 08:53: Darian IVPB, PRN, Herm Line Flush, Start date: 07/06/11 2:53:00, Duration: 30 day, Stop date: 08/05/11 3:52:00 BD Normal No Oscar 10 mL, Kaz david Saline 07-06 Ni-Diane Route: l Flush 08:53: Darian IVP, Drug Form: INJ, PRN, PRN Line Flush, Start date: 07/06/11 2:53:00, Duration: 30 day, Stop date: 08/05/11 3:52:00 morphine 2011- No Evaristo J 4 mg, Memor ia Sulfate 07-06 Hoberman Route: l 04:23: IVP, ONCE, Priority: STAT, Start date: 07/05/11 22:23:00, Stop date: 07/05/11 22:23:00 Niaspan ER Yes 500 mg, 1 Me moria 500 mg oral 2-27 tab, PO, l tablet, 04:07: BID, 60 [place] extended 13 tab, release Substituti on Allowed warfarin 3 Yes 3 mg, 1 Kaz david mg oral 2-27 tab, PO, l tablet 04:06: Daily, 30 Pankaj n 14 tab, Substituti on Allowed, TAB ALPRAZOLam Yes 0.5 mg, Kaz david 2-27 PO, PRN, l 04:04: PRN, Noel 58 anxiety, Substituti on Allowed promethazin Yes 25 mg, 1 Me moria e 25 mg 2-27 tab, PO, l oral tablet 04:04: Q12H, PRN, Noel 01 15 tab, Nausea, Substituti on Allowed metolazone Yes 5 mg, 1 Kaz david 5 mg oral 2-27 tab, PO, l tablet 04:03: Daily, 30 Pankaj n 04 tab, Substituti on Allowed, TAB glyBURIDE Yes 2.5 mg, 1 Mem oria 2.5 mg oral 2- tab, PO, l tablet 04:01: TID, 30 [place] 59 tab, Substituti on Allowed, TAB nitroglycer No Evaristo J 1 inch, Memoria in 2% 07-06erman Route: l ointment 03:43: TOP, Drug Form: OINT, ONCE, STAT, Start date: 07/05/11 21:43:00, Stop date: 07/05/11 21:43:00 nitroglycer No Evaristo J 0.4 mg, 1 Memoria in - Hoberman tab, l 03:43: Route: SL, Noel 00 Drug form: TAB, Q5Min, PRN Chest Pain, (Hold if SBP < = 90 mmHg or if < = 100mmHg with symptomati c dizziness) , Start date: 07/05/11 21:43:00, Duration: 3 doses or times, Stop date: Limited # of times aspirin 81 No Evaristo J 81 mg, 1 Memoria mg tablet, - Hoberman tab, l chewable 03:43: Route: PO, Her greenwood Drug form: CHEWTAB, ONCE, Priority: STAT, Start date: 07/05/11 21:43:00, Stop date: 07/05/11 21:43:00 Saline No Evaristo J 5 ml, Memoria Flush 0.9% 07-06 Route: l 03:43: IVP, Drug Form: INJ, PRN, PRN Line Flush, Start date: 07/05/11 21:43:00, Duration: 24 hr, Stop date: 07/06/11 21:42:00 Coumadin 2010-05 No Desean 10 mg, 1 Kaz david - Jagdishcha tab, l 23:00: ndra Catrachito Route: PO, He rm 00 Drug form: TAB, ONCE, Start date: 05/05/11 17:00:00, Stop date: 05/05/11 17:00:00 Coumadin 2010-05 No Desean 10 mg, 1 Kaz david 07-06 Jagdishcha tab, l 20:58: ndra Catrachito Route: PO, He rm Drug form: TAB, ONCE, Start date: 05/05/11 14:58:00, Stop date: 05/05/11 14:58:00 Coumadin 2010-05 No Yury R 10 mg, 1 Memoria 07-05 Anderson tab, l 23:00: Route: PO, Noel 00 Drug form: TAB, ONCE, Start date: 05/04/11 17:00:00, Stop date: 05/04/11 17:00:00 Coreg 2010-05 No Kiritkumar 3.125 mg, M emoria 2- A Morrison 1 tab, l 23:00: Route: PO, [place] 00 Drug form: TAB, BID, Start date: 05/04/11 17:00:00, Duration: 30 day, Stop date: 06/03/11 9:00:00 Coumadin 2010-05 No Yury R 10 mg, 1 Memoria 25 Anderson tab, l 23:00: Route: PO, [place] 00 Drug form: TAB, ONCE, Start date: 05/03/11 17:00:00, Stop date: 05/03/11 17:00:00 Carafate 2010-05 No Desean 1 gm, 1 Memor ia 07-03 Jagdishcha tab, l 23:00: ndra Catrachito Route: PO, He rm Drug form: TAB, BID, Start date: 05/02/11 17:00:00, Duration: 30 day, Stop date: 06/01/11 9:00:00 Coreg 2010-05 No Yury R 3.125 mg, M emoria 2-24 Anderson 1 tab, l 23:00: Route: PO, Drug form: TAB, BID, Start date: 05/02/11 17:00:00, Duration: 30 day, Stop date: 06/01/11 9:00:00 Coumadin 2010-05 No Yury R 10 mg, 1 Memoria 2-24 Anderson tab, l 23:00: Route: PO, Drug form: TAB, ONCE, Start date: 05/02/11 17:00:00, Stop date: 05/02/11 17:00:00 Coumadin 2010-05 No Yury R 10 mg, 1 Memoria 2-23 Anderson tab, l 23:00: Route: PO, Drug form: TAB, ONCE, Start date: 05/01/11 17:00:00, Stop date: 05/01/11 17:00:00 Coumadin 2010-05 No Kiritkumar 2.5 mg, 1 Memoria 2-22 A Morrison tab, l 23:00: Route: PO, Drug form: TAB, ONCE, Start date: 04/30/11 17:00:00, Stop date: 04/30/11 17:00:00 Lovenox 2010-05 No Won 80 mg, 0.8 Memoria 2-22 Bower mL, Route: l 14:00: Hughes SUB-Q, Drug form: INJ, [id number], Start date: 04/30/11 8:00:00, Duration: 30 day, Stop date: 05/29/11 20:00:00 Zofran 2010-05 No Kiritkumar 2 mg, 1 Me moria 2-21 A Morrison mL, Route: l 20:35: IVP, Drug form: INJ, Q8H, PRN Nausea, Start date: 04/29/11 14:35:00, Duration: 30 day, Stop date: 05/29/11 14:34:00 NovoLog 2010-05 No Yury R 5 unit, M emoria FlexPen 2-21 Anderson 0.05 mL, l 19:22: Route: [place] 00 SUB-Q, Drug form: SOLN, Sliding Scale, PRN Blood Glucose Results, Start date: 04/29/11 13:22:00, Duration: 30 day, Stop date: 05/29/11 13:21:00 glucagon 2010-05 No Yury R 1 mg, Me moria 06-30 Justin Route: IV, l 19:22: Drug form: Noel 00 PDR/INJ, PRN, PRN Blood Glucose Results, Start date: 04/29/11 13:22:00, Duration: 30 day, Stop date: 05/29/11 13:21:00 Dextrose 2010-05 No Yury R 50 mL, M emoria 50% in 06-30 Justin Route: l Water IV 19:22: IVP, PRN, Herm pinky 00 Blood Glucose Results, Start date: 04/29/11 13:22:00, Duration: 30 day, Stop date: 05/29/11 13:21:00 Sodium 2010-05 No Yury R 250 mL, Me moria Chloride 06-30 Justin Route: l 0.9% IV 19:14: IVPB, PRN, Herm pinky 00 Line Flush, Start date: 04/29/11 13:14:00, Duration: 30 day, Stop date: 05/29/11 13:13:00 BD Normal 2010-05 No Yury R 10 mL, Memoria Saline 06-30 Justin Route: l Flush 19:13: IVP, Drug [place] 00 Form: INJ, PRN, PRN Line Flush, Start date: 04/29/11 13:13:00, Duration: 30 day, Stop date: 05/29/11 13:12:00 Coumadin 2010-05 No Yury R 2.5 mg, 1 Memoria 06-30 Justin tab, l 03:00: Route: PO, [place] Drug form: TAB, Bedtime, Start date: 04/28/11 21:00:00, Duration: 30 day, Stop date: 05/27/11 21:00:00 Lovenox 2010-05 No Yury R 80 mg, 0.8 Memoria 06-30 Justin mL, Route: l 02:00: SUB-Q, [place] Drug form: INJ, [id number], Start date: 04/28/11 20:00:00, Duration: 30 day, Stop date: 05/28/11 8:00:00 Protonix 2010-05 No Kiritkumar 40 mg, 1 Memoria 2-20 A Morrison tab, l 22:30: Route: PO, Noel 00 Drug form: ECTAB, Before Dinner, Start date: 04/28/11 16:30:00, Duration: 30 day, Stop date: 05/27/11 16:30:00 Betapace 2010-05 No Yury R 80 mg, 1 Memoria 2-20 Anderson tab, l 16:52: Route: PO, Noel 00 Drug form: TAB, BID, Start date: 04/28/11 10:52:00, Duration: 30 day, Stop date: 05/28/11 9:00:00 Coreg 2010-05 No Kiritkumar 6.25 mg, 1 Memoria 2-20 A Morrison tab, l 15:00: Route: PO, Drug form: TAB, Q12H, Start date: 04/28/11 9:00:00, Duration: 30 day, Stop date: 05/27/11 21:00:00 Zaroxolyn 2010-05 No Kiritkumar 5 mg, 2 Memoria 2-20 A Morrison tab, l 15:00: Route: PO, Drug form: TAB, Daily, Start date: 04/28/11 9:00:00, Duration: 30 day, Stop date: 05/27/11 9:00:00 Prinivil 2010-05 No Kiritkumar 10 mg, 1 Memoria 2-20 A Morrison tab, l 15:00: Route: PO, Drug form: TAB, Q12H, Start date: 04/28/11 9:00:00, Duration: 30 day, Stop date: 05/27/11 21:00:00 Lasix 2010-05 No Kiritkumar 40 mg, 1 Me moria 2-20 A Morrison tab, l 15:00: Route: PO, Noel 00 Drug form: TAB, Daily, Start date: 04/28/11 9:00:00, Duration: 30 day, Stop date: 05/27/11 9:00:00 Xanax 2010-05 No Kiritkumar 0.5 mg, 1 M emoria 2-20 A Morrison tab, l 15:00: Route: PO, Noel 00 Drug form: TAB, Daily, Start date: 04/28/11 9:00:00, Duration: 30 day, Stop date: 05/27/11 9:00:00 K-Dur 10 2010-05 No Kiritkumar 10 mEq, 1 Memoria 2-20 A Morrison tab, l 15:00: Route: PO, [place] 00 Drug form: ERTAB, Daily, Start date: 04/28/11 9:00:00, Duration: 30 day, Stop date: 05/27/11 9:00:00 Neurontin 2010-05 No Kiritkumar 600 mg, 2 Memoria 2-20 A Morrison cap, l 15:00: Route: PO, Noel Drug form: CAP, TID, Start date: 04/28/11 9:00:00, Duration: 30 day, Stop date: 05/27/11 17:00:00 morphine 2010-05 No Yury R 2 mg, 0.4 Memoria Sulfate 2-20 Anderson mL, Route: l 13:31: IV, Drug [place] 00 form: INJ, ONCE, Start date: 04/28/11 7:31:00, Stop date: 04/28/11 7:31:00 morphine 2010-05 No Kiritkumar 2 mg, 0.4 Memoria Sulfate 2-20 A Morrison mL, Route: l 10:44: IV, Drug Noel 00 form: INJ, ONCE, Start date: 04/28/11 4:44:00, Stop date: 04/28/11 4:44:00 Phenergan 2010-05 No Kiritkumar 25 mg, 1 Memoria 2-20 A Morrison tab, l 08:13: Route: PO, Noel Drug form: TAB, Q6H, PRN Nausea, Start date: 04/28/11 2:13:00, Duration: 30 day, Stop date: 05/28/11 2:12:00 acetaminoph 2010-05 No Kiritkumar 1 tab, Memoria en-hydrocod 2-20 A Morrison Route: PO, l one 325 08:12: Drug Form: Herm pinky mg-5 mg 00 TAB, Q6H, oral tablet PRN Pain, Start date: 04/28/11 2:12:00, Duration: 30 day, Stop date: 05/28/11 2:11:00 Lovenox 2010-05 No Kiritkumar 40 mg, 0.4 Memoria 2-20 A Morrison mL, Route: l 07:00: SUB-Q, [place] Drug form: INJ, [id number], Start date: 04/28/11 1:00:00, Duration: 30 day, Stop date: 05/27/11 13:00:00 diltiazem 2010-05 No Kiritkumar 100 mL, Memoria 100 mg + 2-20 A Morrison Rate: l Sodium 06:36: titrate, Noel Chloride Route: IV, 0.9% IV 100 Total mL Volume: 100, Start date: 04/28/11 0:36:00, Duration: 30 day, Stop date: 05/28/11 0:35:00 glucagon 2010-05 No Yury R 1 mg, Me moria 2-20 Anderson Route: IV, l 06:35: Drug form: [place] PDR/INJ, PRN, PRN Blood Glucose Results, Start date: 04/28/11 0:35:00, Duration: 30 day, Stop date: 05/28/11 0:34:00 Dextrose 2010-05 No Yury R Route: M emoria 50% in 2-20 Anderson IVP, PRN, l Water IV 06:35: Blood [place] 00 Glucose Results, Start date: 04/28/11 0:35:00, Duration: 30 day, Stop date: 05/28/11 0:34:00 NovoLog 2010-05 No Yury R 10 unit, Memoria FlexPen 2-20 Anderson 0.1 mL, l 06:35: Route: Noel 00 SUB-Q, Drug form: SOLN, Sliding Scale, PRN Blood Glucose Results, Start date: 04/28/11 0:35:00, Duration: 30 day, Stop date: 05/28/11 0:34:00 Avelox 400 2010-05 No Annette 400 mg, 1 Me moria mg oral 0-11 [place] tab, l tablet 15:36: [place] Route: PO, Her greenwood 00 Drug form: TAB, [id number], Priority: NOW, Start date: 02/17/11 10:36:00, Duration: 30 day, Stop date: 03/18/11 10:36:00 Avelox 400 2010- Yes Annette 400 mg, 1 Me moria mg oral 0-11 [place] tab, PO, l tablet 15:31: [place] Daily, 7 Jessica nn 58 tab, Substituti on Allowed, TAB Protonix 2010-05 No Annette 40 mg, 1 Memor ia 0-11 [place] tab, l 12:30: [place] Route: PO, Jessica nn 00 Drug form: ECTAB, Before Breakfast, Start date: 02/17/11 7:30:00, Duration: 30 day, Stop date: 03/18/11 7:30:00 azithromyci 2010-05 No Annette 500 mg, 2 M emoria n 500 mg 0-11 [place] tab, l oral tablet 04:00: [place] Route: PO, Noel 00 Drug form: TAB, Daily, Start date: 02/16/11 23:00:00, Duration: 30 day, Stop date: 03/18/11 9:00:00 amLODipine 2010-05 No Crystal 5 mg, 1 M emoria 0-11 Kristen tab, l 02:04: Elvia Route: PO, Pankaj n 00 Drug form: TAB, Daily, Priority: NOW, Start date: 02/16/11 21:04:00, Duration: 30 day, Stop date: 03/18/11 9:00:00 morphine 2010-05 No Crystal 4 mg, 0.8 M emoria Sulfate 0-11 Kristen mL, Route: l 02:03: Elvia IM, Drug Noel 00 form: INJ, Q6H, PRN Pain, Start date: 02/16/11 21:03:00, Duration: 30 day, Stop date: 03/18/11 21:02:00 hydrALAZINE 2010-05 No Annette 10 mg, 0.5 Memoria 0-10 [place] mL, Route: l 16:43: [place] IVP, Drug Pankaj n 00 form: INJ, Q4H, PRN Elevated BP, Start date: 02/16/11 11:43:00, Duration: 30 day, Stop date: 03/18/11 11:42:00 Lopressor 2010-05 No Annette 5 mg, 5 Memor ia 0-10 [place] mL, Route: l 16:43: [place] IVP, Drug Pankaj n 00 form: INJ, Q6H, PRN Elevated BP, Start date: 02/16/11 11:43:00, Duration: 30 day, Stop date: 03/18/11 11:42:00 Visipaque 2010-05 No Annette 48,000 mg, Me moria 0-10 [place] 150 mL, l 14:05: [place] Route: IV, Jessica nn Drug form: INJ, ONCE, Start date: 02/16/11 9:05:00, Stop date: 02/16/11 9:05:00 potassium 2010-05 No Annette 10 mEq, 1 Mem oria chloride 0-10 [place] tab, l 14:00: [place] Route: PO, Jessica nn Drug form: ERTAB, Daily, Start date: 02/16/11 9:00:00, Duration: 30 day, Stop date: 03/17/11 9:00:00 glyBURIDE 2010-05 No Annette 5 mg, 1 Memor ia 0-10 [place] tab, l 14:00: [place] Route: PO, Jessica nn Drug form: TAB, Daily, Start date: 02/16/11 9:00:00, Duration: 30 day, Stop date: 03/17/11 9:00:00 Lasix 40 mg 2010-05 No Annette 40 mg, 2 Me moria oral tablet 0-10 [place] tab, l 14:00: [place] Route: PO, Jessica nn Drug form: TAB, Daily, Start date: 02/16/11 9:00:00, Duration: 30 day, Stop date: 03/17/11 9:00:00 morphine 2010-05 No Crystal 2 mg, 0.4 M emoria Sulfate 0-10 Kristen mL, Route: l 04:21: Elvia IVP, Drug Noel 00 form: INJ, Q3H, PRN Pain, Start date: 02/15/11 23:21:00, Duration: 30 day, Stop date: 03/17/11 23:20:00 predniSONE 2010-05 No Annette 50 mg, Memor ia 0-09 [place] Route: PO, l 22:00: [place] Drug form: Jessica nn 00 TAB, BID, Start date: 02/15/11 17:00:00, Duration: 30 day, Stop date: 03/17/11 9:00:00 gabapentin 2010-05 No Annette 600 mg, 2 Me moria 600 mg oral 0-09 [place] cap, l tablet 18:00: [place] Route: PO, Her greenwood 00 Drug form: CAP, TID, Start date: 02/15/11 13:00:00, Duration: 30 day, Stop date: 03/17/11 9:00:00 aspirin 81 2010-05 Yes 1 tab, PO, M emoria mg tablet, 0-09 Daily, 0 l enteric 16:58: tab [place] coated 50 Substituti on Allowed, ECTAB glyBURIDE 5 2010-05 Yes Annette 1 tab, PO, Memoria mg oral 0-09 [place] Daily, 30 l tablet 16:58: [place] tab, Noel 30 Substituti on Allowed, TAB doxycycline 2010-05 No 1 cap, PO, Memoria hyclate 100 0-09 BID, cap, l mg oral 16:58: Substituti Herm pinky capsule 11 on Allowed predniSONE 2010-05 Yes Annette 1 tab, PO, M emoria 50 mg oral 0-09 [place] BID, tab, l tablet 16:57: [place] Substituti Her greenwood 48 on Allowed, TAB gabapentin 2010-05 Yes Annette 1 tab, PO, M emoria 600 mg oral 0-09 [place] TID, 270 l tablet 16:57: [place] tab Noel 13 Substituti on Allowed Klor-Con 2010-05 Yes Annette 1 tab, PO, Mem oria M10 oral 0-09 [place] Daily, l tablet, 16:56: [place] tab [place] extended 57 Substituti release on Allowed, ERTAB lisinopril 2010-05 Yes 1 tab, PO, M emoria 10 mg oral 0-09 BID, 30 l tablet 16:56: tab Noel 17 Substituti on Allowed, TAB Lasix 40 mg 2010-05 Yes Annette 1 tab, PO, Memoria oral tablet 0-09 [place] Daily, 30 l 16:56: [place] tab Noel 00 Substituti on Allowed, TAB Coreg 12.5 2010-05 Yes 1 tab, PO, M emoria mg oral 0-09 BID, 60 l tablet 16:55: tab [place] 44 Substituti on Allowed, TAB Zofran ODT 2010-05 Yes 4 mg, 1 Kaz advid 4 mg oral 0-09 tab, PO, l tablet, 16:55: Q8H, PRN, Jessica nn disintegrat 22 as needed ing for nausea/vom iting, Substituti on Allowed, TAB Xanax 0.5 2010-05 Yes 1 tab, PO, Me moria mg oral 0-09 Daily, l tablet 16:54: PRN, 30 [place] 59 tab, Anxiety, Substituti on Allowed cefepime 2010-05 No Annette 1 gm, Memoria 0-09 [place] Route: l 16:00: [place] PRITCHARDPB, Noel 00 [id number], Start date: 02/15/11 11:00:00, Duration: 30 day, Stop date: 03/16/11 23:00:00 pantoprazol 2010-05 No Crystal 40 mg, M emoria e 0- Kristen Route: l 14:00: Elvia IVP, Drug Noel 00 form: INJ, Daily, Start date: 02/15/11 9:00:00, Duration: 30 day, Stop date: 03/16/11 9:00:00 Saline 2010-05 No Crystal 5 ml, Memoria Flush 0.9% 0 Kristen Route: l 14:00: Elvia IVP, Drug Noel 00 Form: INJ, Q12H, Start date: 02/15/11 9:00:00, Duration: 30 day, Stop date: 03/16/11 21:00:00 aspirin 81 2010-05 No Crystal 81 mg, 1 Memoria mg tablet, 0-09 Kristen tab, l enteric 14:00: Elvia Route: PO, Her [place] coated 00 Drug form: ECTAB, Daily, Start date: 02/15/11 9:00:00, Duration: 30 day, Stop date: 03/16/11 9:00:00 Lovenox 2010-05 No Crystal 40 mg, 0.4 M emoria 0-09 Kristen mL, Route: l 14:00: Elvia ANGEL-Q, [place] Drug form: INJ, Daily, Start date: 02/15/11 9:00:00, Duration: 30 day, Stop date: 03/16/11 9:00:00 predniSONE 2010-05 No Arnaldo R 40 mg, 2 Memoria 0-09 Morrison tab, l 14:00: Route: PO, [place] Drug form: TAB, Daily, Start date: 02/15/11 9:00:00, Stop date: 03/16/11 9:00:00 lisinopril 2010-05 No Crystal 10 mg, 2 Memoria 0-09 Kristen tab, l 14:00: Elvia Route: PO, Pankaj n 00 Drug form: TAB, BID, Start date: 02/15/11 9:00:00, Duration: 30 day, Stop date: 03/16/11 17:00:00 DuoNeb 2010-05 No Crystal 3 ml, Memoria inhalation 009 Kristen Route: l solution 05:00: Elvia INHALATION He rmann 00 , Drug Form: SOLN, Q6H, Start date: 02/15/11 0:00:00, Duration: 30 day, Stop date: 03/16/11 18:00:00 Neurontin 2010-05 No Annette 600 mg, 2 Mem oria 0-09 [place] cap, l 04:40: [place] Route: PO, Jessica nn 00 Drug form: CAP, Q8H, Start date: 02/14/11 23:40:00, Duration: 30 day, Stop date: 03/16/11 16:00:00 ceftriaxone 2010-05 No Arnaldo R 1 gm, M emoria 0-09 Morrison Route: l 04:00: MACHOPBNoel 00 [id number], Start date: 02/14/11 23:00:00, Duration: 30 day, Stop date: 03/15/11 23:00:00 azithromyci 2010-05 No Crystal 500 mg, Memoria n 0-09 Kristen Route: l 04:00: Elvia IVPBNoel 00 [id number], Start date: 02/14/11 23:00:00, Duration: 30 day, Stop date: 03/15/11 23:00:00 Vicodin 2010-05 No Crystal 1 tab, Memor ia 5/500 oral 0-09 Kristen Route: PO, l tablet 03:13: Elvia Drug Form: Herm pinky 00 TAB, Q4H, PRN Pain, Start date: 02/14/11 22:13:00, Duration: 30 day, Stop date: 03/16/11 22:12:00 acetaminoph 2010-05 No Crystal 650 mg, 2 Memoria en 0-09 Kristen tab, l 03:12: Elvia Route: PO, Pankaj n 00 Drug form: TAB, Q4H, PRN Pain/Fever , Start date: 02/14/11 22:12:00, Duration: 30 day, Stop date: 03/16/11 22:11:00 guaifenesin 2010-05 No Crystal 100 mg, 5 Memoria 0-09 Kristen mL, Route: l 03:12: Elvia PO, Drug Noel 00 form: LIQ, Q4H, PRN Cough, Start date: 02/14/11 22:12:00, Duration: 30 day, Stop date: 03/16/11 22:11:00 Insulin 2010-05 No Crystal 10 unit, Mem oria (Novolog) 0-09 Kristen 0.1 mL, l Sliding 03:08: Elvia Route: [place] Scale - Low 00 SUB-Q, Drug form: SOLN, Sliding Scale, PRN Blood Glucose Results, Start date: 02/14/11 22:08:00, Duration: 30 day, Stop date: 03/16/11 21:07:00 glucagon 2010-05 No Crystal 1 mg, Memor ia 0-09 Kristen Route: IM, l 03:08: Elvia Drug form: Pankaj n 00 PDR/INJ, PRN, PRN Blood Glucose Results, Start date: 02/14/11 22:08:00, Duration: 30 day, Stop date: 03/16/11 21:07:00 Dextrose 2010-05 No Crystal 25 gm, 50 M emoria 50% Syringe 0-09 Kristen ml, Route: l 03:08: Elvia IVP, Drug [place] 00 Form: INJ, PRN, PRN Blood Glucose Results, Start date: 02/14/11 22:08:00, Duration: 30 day, Stop date: 03/16/11 21:07:00 Neurontin 2010-05 No Crystal 600 mg, 2 Memoria 0-09 Kristen cap, l 03:06: Elvia Route: PO, Pankaj n 00 Drug form: CAP, Q8H, Priority: NOW, Start date: 02/14/11 22:06:00, Duration: 30 day, Stop date: 03/16/11 16:00:00 Zofran 2010-05 No Crystal 4 mg, 1 Memor ia 0-09 Kristen tab, l 03:05: Elvia Route: PO, Pankaj n 00 Drug form: TAB, Q8H, PRN Nausea, Start date: 02/14/11 22:05:00, Duration: 30 day, Stop date: 03/16/11 22:04:00 Xanax 0.5 2010-05 No Crystal 0.5 mg, 1 Memoria mg oral 0-09 Kristen tab, l tablet 03:04: Elvia Route: PO, Herm pinky Drug form: TAB, Bedtime, Priority: NOW, Start date: 02/14/11 22:04:00, Duration: 30 day, Stop date: 03/16/11 21:00:00 Coreg 2010-05 No J Benny 6.25 mg, 2 Kaz david 0-09 Mendez tab, l 03:04: Route: PO, [place] Drug form: TAB, Q12H, Priority: NOW, Start date: 02/14/11 22:04:00, Stop date: 03/16/11 21:00:00 Saline 2010-05 No Crystal 5 ml, Memoria Flush 0.9% 0-09 Kristen Route: l 02:35: Elvia IVP, Drug Form: INJ, PRN, PRN Line Flush, Start date: 02/14/11 21:35:00, Duration: 30 day, Stop date: 03/16/11 20:34:00 nitroglycer 2010-05 No Crystal 0.4 mg, 1 Memoria in SL Tab 0-09 Kristen tab, l 02:35: Elvia Route: SL, Pankaj n Drug form: TAB, Q5Min, PRN Chest Pain, Start date: 02/14/11 21:35:00, Duration: 3 doses or times, Stop date: Limited # of times aspirin 325 2010-05 No Abdon G 325 mg, 1 Memoria mg tablet 0-09 Forbes tab, l 01:28: Route: PO, Noel 00 Drug form: TAB, ONCE, Priority: STAT, Start date: 02/14/11 20:28:00, Stop date: 02/14/11 20:28:00 ondansetron 2010-05 No Abdon G 4 mg, 2 Memoria 0-09 Forbes mL, Route: l 00:31: IVP, Drug form: INJ, ONCE, Priority: STAT, Start date: 02/14/11 19:31:00, Stop date: 02/14/11 19:31:00 morphine 2010- No Abdon G 4 mg, 1 Mem oria Sulfate 0-09 Forbes mL, Route: l 00:30: IVP, Drug [place] 00 form: INJ, ONCE, Priority: STAT, Start date: 02/14/11 19:30:00, Stop date: 02/14/11 19:30:00 Saline 2010- No Abdon G 5 ml, Memoria Flush 0.9% 0-08 Forbes Route: l 23:21: IVP, Drug Noel 00 Form: INJ, PRN, PRN Line Flush, Start date: 02/14/11 18:21:00, Duration: 30 day, Stop date: 03/16/11 17:20:00 Vital Signs Vital Name Observation Time Observation Value Comments Source Respitory Rate 2018-12-01 20:24:00 [facility] al [place] Systolic (mm Hg) 2018-12-01 20:24:00 Kaz rial [place] Diastolic (mm Hg) 2018-12-01 20:24:00 Mem orial [place] Temperature Oral (F) 2018-12-01 20:24:00 98.5 F [facility] [place] Heart Rate 2018-12-01 20:24:00 [facility] Noel Systolic (mm Hg) 2018-12-01 16:14:00 Kaz rial Noel Diastolic (mm Hg) 2018-12-01 16:14:00 Mem orial [place] Heart Rate 2018-12-01 16:14:00 [facility] Noel Respitory Rate 2018-12-01 16:14:00 [facility]ori al Noel Temperature Oral (F) 2018-12-01 16:14:00 98.1 F [facility] Noel Systolic (mm Hg) 2018-12-01 13:27:00 Kaz rial [place] Diastolic (mm Hg) 2018-12-01 13:27:00 Mem orial [place] Respitory Rate 2018-12-01 12:23:00 [facility] al Noel Heart Rate 2018-12-01 12:23:00 [facility] 2018-12-01 09:32:00 193.04 [facility] BMI Calculated 2018-11-30 04:11:00 [facility] [place] Weight 2018-11-30 04:11:00 [facility] Noel Height 2018-11-30 04:11:00 193.04 cm [facility] [place] Systolic (mm Hg) 2018-03-29 17:39:00 Kaz rial [place] Diastolic (mm Hg) 2018-03-29 17:39:00 Mem orial Noel Respitory Rate 2018-03-29 17:39:00 [facility] al Noel Heart Rate 2018-03-29 17:39:00 [facility] [place] Temperature Oral (F) 2018-03-29 17:39:00 97.5 F [facility] Noel Heart Rate 2018-03-29 13:52:00 [facility] Noel Respitory Rate 2018-03-29 13:52:00 [facility] al Noel Systolic (mm Hg) 2018-03-29 13:52:00 Kaz rial Noel Diastolic (mm Hg) 2018-03-29 13:52:00 Mem orial Noel Temperature Oral (F) 2018-03-29 13:52:00 98.4 F [facility] Noel Weight 2018-03-29 12:08:00 [facility] Noel Systolic (mm Hg) 2018-03-29 09:30:00 Kaz rial [place] Diastolic (mm Hg) 2018-03-29 09:30:00 Mem orial [place] Heart Rate 2018-03-29 09:30:00 [facility] Noel Temperature Oral (F) 2018-03-29 09:30:00 98.3 F [facility] [place] Respitory Rate 2018-03-29 06:00:00 [facility]ori al Noel BMI Calculated 2018-03-25 21:42:00 [facility] Noel Weight 2018-03-25 21:42:00 [facility] [place] Height 2018-03-25 21:42:00 193.04 cm [facility] Noel Temperature Oral (F) 2017-04-11 13:01:00 97.9 F [facility] [place] Systolic (mm Hg) 2017-04-11 13:01:00 Kaz rial Noel Diastolic (mm Hg) 2017-04-11 13:01:00 Mem orial Noel Respitory Rate 2017-04-11 13:01:00 [facility] al Noel Heart Rate 2017-04-11 13:01:00 [facility] [place] Temperature Oral (F) 2017-04-11 10:00:00 98.2 F [facility] Noel Heart Rate 2017-04-11 10:00:00 [facility] [place] Systolic (mm Hg) 2017-04-11 10:00:00 Kaz rial [place] Diastolic (mm Hg) 2017-04-11 10:00:00 Mem orial Noel Respitory Rate 2017-04-11 10:00:00 [facility] al Noel Systolic (mm Hg) 2017-04-11 06:00:00 Kaz rial [place] Diastolic (mm Hg) 2017-04-11 06:00:00 Mem orial [place] Heart Rate 2017-04-11 06:00:00 [facility] Noel Respitory Rate 2017-04-11 06:00:00 [facility] al Noel Temperature Oral (F) 2017-04-11 06:00:00 98.2 F [facility] [place] Height 2017-04-08 21:30:00 193.04 cm [facility] No[facility] Weight 2017-04-08 21:30:00 [facility] [place] BMI Calculated 2017-04-08 21:30:00 [facility] al Noel Temperature Oral (F) 2017-03-23 22:16:00 98.4 F [facility] Noel Heart Rate 2017-03-23 22:16:00 [facility] Noel Respitory Rate 2017-03-23 22:16:00 [facility] al Noel Systolic (mm Hg) 2017-03-23 22:16:00 Kaz rial Noel Diastolic (mm Hg) 2017-03-23 22:16:00 Mem orial [place] Systolic (mm Hg) 2017-03-23 17:38:00 Kaz rial Noel Diastolic (mm Hg) 2017-03-23 17:38:00 Mem orial [place] Temperature Oral (F) 2017-03-23 17:38:00 98.2 F [facility] [place] Heart Rate 2017-03-23 17:38:00 [facility] Noel Respitory Rate 2017-03-23 17:38:00 [facility] al Noel Heart Rate 2017-03-23 13:43:00 [facility] [place] Systolic (mm Hg) 2017-03-23 13:43:00 Kaz rial Noel Diastolic (mm Hg) 2017-03-23 13:43:00 Mem orial [place] Respitory Rate 2017-03-23 13:43:00 [facility]ori al Noel Temperature Oral (F) 2017-03-23 13:43:00 98.4 F [facility] [place] BMI Calculated 2017-03-16 22:19:00 [facility] al Noel Weight 2017-03-16 22:19:00 [facility] [place] Height 2017-03-16 22:19:00 193.04 cm [facility] Noel Weight 2017-03-16 18:16:00 [facility] Noel BMI Calculated 2017-03-16 18:16:00 [facility] [place] Height 2017-03-16 18:16:00 193.04 cm [facility] Noel Temperature Oral (F) 2016-03-11 18:06:00 97.9 F [facility] [place] Systolic (mm Hg) 2016-03-11 18:06:00 Kaz rial Noel Diastolic (mm Hg) 2016-03-11 18:06:00 Mem orial Noel Heart Rate 2016-03-11 18:06:00 [facility] Noel Respitory Rate 2016-03-11 18:06:00 [facility] al Noel Systolic (mm Hg) 2016-03-11 12:58:00 Kaz rial Noel Diastolic (mm Hg) 2016-03-11 12:58:00 Mem orial [place] Respitory Rate 2016-03-11 12:58:00 [facility] [place] Temperature Oral (F) 2016-03-11 12:58:00 98.1 F [facility] Heart Rate 2016-03-11 12:58:00 [facility] [place] Heart Rate 2016-03-11 09:18:00 [facility] [place] Temperature Oral (F) 2016-03-11 09:18:00 97.8 F [facility] [place] Respitory Rate 2016-03-11 09:18:00 [facility]ori al Noel Systolic (mm Hg) 2016-03-11 09:18:00 Kaz rial [place] Diastolic (mm Hg) 2016-03-11 09:18:00 Mem o[facility] Noel BMI Calculated 2016-03-09 19:03:00 [facility] [place] Weight 2016-03-09 19:03:00 [facility] [place] Height 2016-03-09 19:03:00 193.04 cm [facility] [place] Respitory Rate 2016-01-18 13:00:00 [facility] al Noel Heart Rate 2016-01-18 13:00:00 [facility] [place] Temperature Oral (F) 2016-01-18 13:00:00 98.7 F [facility] [place] Systolic (mm Hg) 2016-01-18 09:06:00 Kaz rial Noel Diastolic (mm Hg) 2016-01-18 09:06:00 Mem orial Noel Temperature Oral (F) 2016-01-18 09:06:00 98.2 F [facility] No[facility] Heart Rate 2016-01-18 09:06:00 [facility] [place] Respitory Rate 2016-01-18 09:06:00 [facility] [place] Systolic (mm Hg) 2016-01-18 03:54:00 Kaz rial [place] Diastolic (mm Hg) 2016-01-18 03:54:00 Mem orial Noel Temperature Oral (F) 2016-01-18 03:54:00 98.1 F [facility] [place] Heart Rate 2016-01-18 03:54:00 [facility] Noel Respitory Rate 2016-01-18 03:54:00 [facility] [place] Weight 2016-01-18 01:05:00 [facility] BMI Calculated 2016-01-18 01:05:00 [facility] Noel Height 2016-01-18 01:05:00 193.04 cm [facility] [place] Diastolic (mm Hg) 2016-01-18 00:55:00 Mem orial Noel Systolic (mm Hg) 2016-01-18 00:55:00 Kaz rial [place] Weight 2016-01-17 21:23:00 [facility] No[facility] Heart Rate 2015-05-28 23:23:00 [facility] No[facility] Temperature Oral (F) 2015-05-28 23:23:00 97.9 F [facility] Respitory Rate 2015-05-28 23:23:00 [facility] al Noel Systolic (mm Hg) 2015-05-28 23:23:00 Kaz rial [place] Diastolic (mm Hg) 2015-05-28 23:23:00 Mem o[facility] [place] Weight 2015-05-28 21:05:00 [facility] Noel Temperature Oral (F) 2015-05-28 21:05:00 97.8 F [facility] [place] Respitory Rate 2015-05-28 21:05:00 [facility] al Noel Heart Rate 2015-05-28 21:05:00 [facility] [place] Systolic (mm Hg) 2015-05-28 21:05:00 Kaz rial Noel Diastolic (mm Hg) 2015-05-28 21:05:00 Mem orial [place] Systolic (mm Hg) 2015-04-24 17:04:00 Kaz rial Noel Diastolic (mm Hg) 2015-04-24 17:04:00 Mem orial [place] Respitory Rate 2015-04-24 17:04:00 [facility] al [place] Temperature Oral (F) 2015-04-24 17:04:00 97.7 F [facility] Heart Rate 2015-04-24 17:04:00 [facility] Systolic (mm Hg) 2015-04-24 14:20:00 Kaz rial [place] Diastolic (mm Hg) 2015-04-24 14:20:00 Mem orial Noel Respitory Rate 2015-04-24 14:20:00 [facility] al [place] Temperature Oral (F) 2015-04-24 14:20:00 97.2 F [facility] [place] Heart Rate 2015-04-24 14:20:00 [facility] Noel Systolic (mm Hg) 2015-04-24 12:24:00 Kaz rial Noel Diastolic (mm Hg) 2015-04-24 12:24:00 Mem o[facility] Noel Respitory Rate 2015-04-24 12:24:00 [facility] al Noel Heart Rate 2015-04-24 12:24:00 [facility] [place] Temperature Oral (F) 2015-04-24 00:30:00 97.7 F [facility] [place] Weight 2015-04-21 07:11:00 [facility] Height 2015-04-21 07:11:00 187.96 cm [facility] [place] BMI Calculated 2015-04-21 07:11:00 [facility] Noel Temperature Oral (F) 2015-02-03 00:13:00 98 F [facility] [place] Heart Rate 2015-02-03 00:13:00 [facility] Systolic (mm Hg) 2015-02-03 00:13:00 Kaz rial [place] Diastolic (mm Hg) 2015-02-03 00:13:00 Mem o[facility] Noel Respitory Rate 2015-02-03 00:13:00 [facility] [place] Height 2015-02-02 20:33:00 172.72 cm [facility] [place] Weight 2015-02-02 20:33:00 [facility] [place] BMI Calculated 2015-02-02 20:33:00 [facility] Noel Respitory Rate 2015-02-02 20:33:00 [facility] [place] Temperature Oral (F) 2015-02-02 20:33:00 98.2 F [facility] Heart Rate 2015-02-02 20:33:00 [facility] [place] Systolic (mm Hg) 2015-02-02 20:33:00 Kaz rial [place] Diastolic (mm Hg) 2015-02-02 20:33:00 Mem [facility] [place] Heart Rate 2014-07-07 04:20:00 [facility] Respitory Rate 2014-07-07 04:20:00 [facility] [place] Temperature Oral (F) 2014-07-07 04:20:00 98.3 F [facility] Heart Rate 2014-07-07 03:38:00 [facility] [place] Respitory Rate 2014-07-07 03:38:00 [facility] al Noel Systolic (mm Hg) 2014-07-07 03:38:00 Kaz rial [place] Diastolic (mm Hg) 2014-07-07 03:38:00 [facility] [place] Systolic (mm Hg) 2014-07-07 02:16:00 Kaz rial [place] Diastolic (mm Hg) 2014-07-07 02:16:00 [facility] [place] Respitory Rate 2014-07-07 02:16:00 [facility] Noel Heart Rate 2014-07-07 02:16:00 [facility] [place] Systolic (mm Hg) 2014-07-07 00:30:00 Kaz rial [place] Diastolic (mm Hg) 2014-07-07 00:30:00 Mem [facility] Noel Temperature Oral (F) 2014-07-07 00:30:00 98.1 F [facility] [place] Height 2014-07-07 00:30:00 193.04 cm [facility] [place] BMI Calculated 2014-07-07 00:30:00 [facility] Noel Weight 2014-07-07 00:30:00 [facility] Diastolic (mm Hg) 2014-04-02 17:45:00 Mem o[facility] Noel Systolic (mm Hg) 2014-04-02 17:45:00 Kaz rial Noel Respitory Rate 2014-04-02 17:45:00 [facility] Noel Diastolic (mm Hg) 2014-04-02 17:30:00 [facility] o[facility] Noel Respitory Rate 2014-04-02 17:30:00 [facility] [place] Systolic (mm Hg) 2014-04-02 17:30:00 Kaz rial Noel Diastolic (mm Hg) 2014-04-02 17:15:00 Mem o[facility] Noel Systolic (mm Hg) 2014-04-02 17:15:00 Kaz rial Noel Respitory Rate 2014-04-02 17:15:00 [facility]ori al Nole Temperature Oral (F) 2014-04-02 15:15:00 97.9 F [facility] Temperature Oral (F) 2014-04-02 13:00:00 97.7 F [facility] Height 2014-03-30 16:58:00 193.04 cm [facility] BMI Calculated 2014-03-30 16:58:00 [facility] Noel Weight 2014-03-30 16:58:00 [facility] Temperature Oral (F) 2014-03-30 16:58:00 98.2 F [facility] Heart Rate 2014-03-30 16:58:00 [facility] Respitory Rate 2014-03-06 00:15:00 [facility] [place] Heart Rate 2014-03-06 00:15:00 [facility] Temperature Oral (F) 2014-03-06 00:15:00 98.1 F [facility] Systolic (mm Hg) 2014-03-06 00:15:00 Kaz rial [place] Diastolic (mm Hg) 2014-03-06 00:15:00 [facility] [place] Systolic (mm Hg) 2014-03-05 20:12:00 Kaz rial [place] Temperature Oral (F) 2014-03-05 20:12:00 98.1 F [facility] Heart Rate 2014-03-05 20:12:00 [facility] Respitory Rate 2014-03-05 20:12:00 [facility] [place] Diastolic (mm Hg) 2014-03-05 20:12:00 Mem o[facility] Noel Respitory Rate 2014-03-05 16:21:00 [facility] Noel Diastolic (mm Hg) 2014-03-05 16:21:00 [facility] [place] Systolic (mm Hg) 2014-03-05 16:21:00 Kaz rial [place] Heart Rate 2014-03-05 16:21:00 [facility] Temperature Oral (F) 2014-03-05 16:21:00 98.1 F [facility] Weight 2014-02-27 10:20:00 [facility] Weight 2014-02-26 07:14:00 [facility] BMI Calculated 2014-02-26 07:14:00 [facility] Height 2014-02-26 07:14:00 193.04 cm [facility] [place] Height 2014-02-25 23:21:00 193.04 cm [facility] [place] Weight 2014-02-25 23:21:00 [facility] [place] BMI Calculated 2014-02-25 23:21:00 [facility] No[facility] Temperature Oral (F) 2014-01-28 17:04:00 99 F [facility] Heart Rate 2014-01-28 17:04:00 [facility] On[facility] Respitory Rate 2014-01-28 17:04:00 [facility] Diastolic (mm Hg) 2014-01-28 17:04:00 [facility] [place] Systolic (mm Hg) 2014-01-28 17:04:00 Kaz rial Noel Temperature Oral (F) 2014-01-28 13:02:00 98.8 F [facility] [place] Heart Rate 2014-01-28 13:02:00 [facility] Respitory Rate 2014-01-28 13:02:00 [facility] [place] Systolic (mm Hg) 2014-01-28 13:02:00 Kaz rial Noel Diastolic (mm Hg) 2014-01-28 13:02:00 [facility] Noel Weight 2014-01-28 10:00:00 [facility] [place] Systolic (mm Hg) 2014-01-28 09:00:00 Kaz rial Noel Diastolic (mm Hg) 2014-01-28 09:00:00 [facility] Noel Temperature Oral (F) 2014-01-28 09:00:00 98.5 F [facility] Heart Rate 2014-01-28 09:00:00 [facility] [place] Respitory Rate 2014-01-28 09:00:00 [facility] [place] BMI Calculated 2014-01-26 09:56:00 [facility] Height 2014-01-26 09:56:00 193.04 cm [facility] Weight 2014-01-26 09:56:00 [facility] Height 2012-07-20 20:49:00 193.04 cm [facility] [place] Weight 2012-07-20 20:49:00 [facility] [place] Systolic (mm Hg) 2012-02-28 02:30:00 Kaz rial Noel Heart Rate 2012-02-28 02:30:00 [facility] Respitory Rate 2012-02-28 02:30:00 [facility] Diastolic (mm Hg) 2012-02-28 02:30:00 [facility] [place] Temperature Oral (F) 2012-02-28 02:30:00 98.7 F [facility] [place] Diastolic (mm Hg) 2012-02-27 21:00:00 [facility] [place] Respitory Rate 2012-02-27 21:00:00 [facility] No[facility] Systolic (mm Hg) 2012-02-27 21:00:00 Kaz rial [place] Temperature Oral (F) 2012-02-27 21:00:00 98.3 F [facility] Heart Rate 2012-02-27 21:00:00 [facility] Diastolic (mm Hg) 2012-02-27 17:00:00 [facility] [place] Systolic (mm Hg) 2012-02-27 17:00:00 [facility] Respitory Rate 2012-02-27 17:00:00 [facility] [place] Temperature Oral (F) 2012-02-27 17:00:00 97.5 F [facility] Heart Rate 2012-02-27 17:00:00 [facility] Height 2012-02-26 05:58:00 193.04 cm [facility] Weight 2012-02-26 05:58:00 [facility] [place] Weight 2012-02-26 05:13:00 [facility] Height 2012-02-26 05:13:00 193.04 cm [facility] [place] Respitory Rate 2011-12-08 16:20:00 [facility] Diastolic (mm Hg) 2011-12-08 16:20:00 [facility] [place] Systolic (mm Hg) 2011-12-08 16:20:00 [facility] Temperature Oral (F) 2011-12-08 16:20:00 98.9 F [facility] [place] Heart Rate 2011-12-08 16:20:00 [facility] [place] Temperature Oral (F) 2011-12-08 13:00:00 99.2 F [facility] [place] Heart Rate 2011-12-08 13:00:00 [facility] Systolic (mm Hg) 2011-12-08 13:00:00 [facility] Respitory Rate 2011-12-08 13:00:00 [facility] Diastolic (mm Hg) 2011-12-08 13:00:00 [facility] Diastolic (mm Hg) 2011-12-08 10:13:00 [facility] Systolic (mm Hg) 2011-12-08 10:13:00 [facility] Respitory Rate 2011-12-08 10:13:00 [facility] [place] Heart Rate 2011-12-08 10:13:00 [facility] Temperature Oral (F) 2011-12-08 10:13:00 97.9 F [facility] [place] Height 2011-12-03 19:23:00 193.04 cm [facility] [place] Weight 2011-12-03 19:23:00 [facility] Weight 2011-12-01 22:46:00 [facility] Height 2011-12-01 22:46:00 193.04 cm [facility] [place] Weight 2011-12-01 22:06:00 [facility] [place] Height 2011-12-01 22:06:00 193.04 cm [facility] Respitory Rate 2011-08-28 12:00:00 [facility] [place] Heart Rate 2011-08-28 12:00:00 [facility] Diastolic (mm Hg) 2011-08-28 12:00:00 [facility] Systolic (mm Hg) 2011-08-28 12:00:00 [facility] Temperature Oral (F) 2011-08-28 12:00:00 97.7 F [facility] Diastolic (mm Hg) 2011-08-28 04:00:00 [facility] Systolic (mm Hg) 2011-08-28 04:00:00 [facility] [place] Heart Rate 2011-08-28 04:00:00 [facility] Respitory Rate 2011-08-28 04:00:00 [facility] [place] Temperature Oral (F) 2011-08-28 04:00:00 97.9 F [facility] [place] Diastolic (mm Hg) 2011-08-27 20:52:00 [facility] Systolic (mm Hg) 2011-08-27 20:52:00 [facility] [place] Respitory Rate 2011-08-27 20:52:00 [facility] Heart Rate 2011-08-27 20:52:00 [facility] [place] Temperature Oral (F) 2011-08-27 20:52:00 98.1 F [facility] Weight 2011-08-26 21:30:00 [facility] Height 2011-08-26 21:30:00 193.04 cm [facility] Respitory Rate 2011-07-07 14:00:00 [facility] Diastolic (mm Hg) 2011-07-07 14:00:00 [facility] Heart Rate 2011-07-07 14:00:00 [facility] Systolic (mm Hg) 2011-07-07 14:00:00 [facility] Temperature Oral (F) 2011-07-07 14:00:00 98.4 F [facility] Diastolic (mm Hg) 2011-07-07 10:00:00 [facility] Systolic (mm Hg) 2011-07-07 10:00:00 [facility] Respitory Rate 2011-07-07 10:00:00 [facility] Temperature Oral (F) 2011-07-07 10:00:00 97.3 F [facility] Heart Rate 2011-07-07 10:00:00 [facility] Temperature Oral (F) 2011-07-07 06:00:00 97.8 F [facility] Weight 2011-07-06 09:52:00 [facility] Weight 2011-07-06 08:45:00 [facility] Height 2011-07-06 08:45:00 193.04 cm [facility] Systolic (mm Hg) 2011-05-05 18:00:00 [facility] Respitory Rate 2011-05-05 18:00:00 [facility] Diastolic (mm Hg) 2011-05-05 18:00:00 [facility] Heart Rate 2011-05-05 18:00:00 [facility] Temperature Oral (F) 2011-05-05 18:00:00 98.6 F [facility] Heart Rate 2011-05-05 14:00:00 [facility] Diastolic (mm Hg) 2011-05-05 14:00:00 [facility] Systolic (mm Hg) 2011-05-05 14:00:00 [facility] Respitory Rate 2011-05-05 14:00:00 [facility] Temperature Oral (F) 2011-05-05 14:00:00 98.0 F [facility] Temperature Oral (F) 2011-05-05 10:00:00 98.6 F [facility] Systolic (mm Hg) 2011-05-05 10:00:00 [facility] Diastolic (mm Hg) 2011-05-05 10:00:00 [facility] Respitory Rate 2011-05-05 10:00:00 [facility] Heart Rate 2011-05-05 10:00:00 [facility] Weight 2011-05-02 11:34:00 [facility] Weight 2011-04-28 06:28:00 [facility] Height 2011-04-28 06:28:00 193.04 cm [facility] Respitory Rate 2011-02-17 19:45:00 [facility] Heart Rate 2011-02-17 19:45:00 [facility] Temperature Oral (F) 2011-02-17 19:45:00 97.8 F [facility] Systolic (mm Hg) 2011-02-17 19:45:00 [facility] Diastolic (mm Hg) 2011-02-17 19:45:00 [facility] Diastolic (mm Hg) 2011-02-17 15:30:00 [facility] Temperature Oral (F) 2011-02-17 15:30:00 97.7 F [facility] Systolic (mm Hg) 2011-02-17 15:30:00 [facility] Respitory Rate 2011-02-17 15:30:00 [facility] Heart Rate 2011-02-17 15:30:00 [facility] Diastolic (mm Hg) 2011-02-17 12:13:00 [facility] Respitory Rate 2011-02-17 12:13:00 [facility] Systolic (mm Hg) 2011-02-17 12:13:00 [facility] Temperature Oral (F) 2011-02-17 12:13:00 98.5 F [facility] Heart Rate 2011-02-17 12:13:00 [facility] Weight 2011-02-15 02:25:00 [facility] Height 2011-02-15 02:25:00 193.04 cm [facility] Weight 2011-02-14 23:10:00 [facility] Height 2011-02-14 23:10:00 193.04 cm [facility] Procedures Procedure Date / Time Performed Performing Clinician [facility] e Fluoroscopic angiography Waleska Cohen of coronary artery and insertion of stent Fusion of lumbar spine [facility] IVC - Insertion of [facility] pinky inferior vena caval filter Pacemaker [facility] care<sup>1</sup> Percutaneous transluminal [facility] balloon angioplasty of aorta with stent placement for coarctation of aorta Procedure on [facility] back<sup>2</sup> IVC - Insertion of [facility] pinky inferior vena caval filter Procedure on back [facility] nn <sup>1</sup> Plan of Care Planned Activity Planned Date Details Comments Source Future Scheduled 2019-12-09 IN[facility]ENZA VACCINE [facility] 00:00:00 [code = INFLUENZA VACCINE] Future Scheduled 2000 65+ PNEUMOCOCCAL [facility] 00:00:00 VACCINE (1 of 1 - PPSV23) [code = 65+ PNEUMOCOCCAL VACCINE (1 of 1 - PPSV23)] Future Scheduled 1985 SHINGLES VACCINES (#1) [facility] 00:00:00 [code = SHINGLES VACCINES (#1)] Future Scheduled 1951 COVID-19 VACCINE (1 of [facility] 00:00:00 2) [code = COVID-19 VACCINE (1 of 2)] Encounters Start End Encounter Admission Attending Care Care Encounter Source Date/Time Date/Time Type Type Clinicians Facility Department ID 2018-11-29 Inpatient [facility] [id number] 22:21:00 2018-11-29 2018-12-01 Outpatient Maryann [facility] [id number] 22:21:00 17:00:00 Cecy Knight Juanita 2018-04-19 2018-04-19 Outpatient [facility], 29 29 [id number] 08:00:00 08:00:00 Arnaldo Clement Merrillthomas 2018-03-25 2018-03-29 Outpatient Morrison, [facility] [id number] 15:02:00 16:28:00 Kavita 20 A 2017-04-10 2017-04-11 Outpatient Prince [facility] [id number] 14:03:00 15:23:00 Kavita 34 A 2017-03-16 2017-03-23 [id number] 12:02:00 18:17:00 Kavita 18 A 2016-03-09 2016-03-11 Outpatient Prince, [facility] [id number] 12:18:00 16:44:00 Kavita 05 A 2016-01-17 2016-01-18 Outpatient Alexus, [facility] S [id number] 16:15:00 12:05:00 Alverto 17 2015-05-28 2015-05-28 Outpatient Elizabeth Catalan SL S [id number] 14:59:00 17:26:00 Abel 15 2015-04-21 2015-04-24 Outpatient Justin, [facility] [id number] 00:14:00 17:10:00 Mike Patel 46 2015-02-02 2015-02-02 Outpatient Jess, [facility] [id number] 15:30:00 19:16:00 Pop Soto 14 2014-07-06 2014-07-06 Outpatient Andrei, [facility] IE [id number] 18:18:00 22:22:00 Abdon Mas 13 2014-04-02 2014-04-02 Outpatient Kriss, [facility] IE [id number] 06:14:00 11:55:00 Terry 12 Chaitanya 2014-02-25 2014-03-05 Outpatient Bari Cox [facility] [id number] 18:17:00 20:10:00 Lesly 11 2014-01-26 2014-01-28 Outpatient Bari Cox [facility] [id number] 06:24:00 17:14:00 Lesly 62 Results Test Description Test Time Test Comments Results Result Comments Source CHEM PANEL 2018-12-01 8.3 [facility] 10:20:00 CHEM PANEL 2018-12-01 13.2 [facility] 10:20:00 CHEM PANEL 2018-12-01 4.2 [facility] 10:20:00 CHEM PANEL 2018-12-01 104 [facility] 10:20:00 CHEM PANEL 2018-12-01 29 [facility] 10:20:00 CHEM PANEL 2018-12-01 142 [facility] 10:20:00 CHEM PANEL 2018-12-01 2.10 [facility] nn 10:20:00 CHEM PANEL 2018-12-01 26 [facility] 10:20:00 CHEM PANEL 2018-12-01 33 [facility] 10:20:00 CHEM PANEL 2018-12-01 104 [facility] 10:20:00 HEMATOLOGY 2018-12-01 0.8 [facility] 10:20:00 HEMATOLOGY 2018-12-01 4.6 [facility] 10:20:00 HEMATOLOGY 2018-12-01 58.6 [facility] 10:20:00 HEMATOLOGY 2018-12-01 31.1 [facility] 10:20:00 HEMATOLOGY 2018-12-01 4.9 [facility] 10:20:00 HEMATOLOGY 2018-12-01 2.5 [facility] 10:20:00 HEMATOLOGY 2018-12-01 1.3 [facility] 10:20:00 HEMATOLOGY 2018-12-01 0.2 [facility] 10:20:00 HEMATOLOGY 2018-12-01 0.2 [facility] 10:20:00 HEMATOLOGY 2018-12-01 33.4 [facility] 10:20:00 HEMATOLOGY 2018-12-01 94.2 [facility] 10:20:00 HEMATOLOGY 2018-12-01 3.54 [facility] 10:20:00 HEMATOLOGY 2018-12-01 10:20:00 Test Item Value Reference Range Interpretation Comme nts MCH (test code = MCH) 30.5 pg 27.0-31.0 [facility] WhdotfgBEDLNYUYAX0840-90-92 10:20:004.2[facility] HermannHEMATOLOGY 2018-12-01 10:20:0010.8[facility] TzagkjbKLLXXGMBTY3273-12-69 10:20:0016.8[facility] HosntzxVUVPKSFULZ1781-38-58 10:20:0077[facility] VdyabsuVBJPZYBLMH5042-57-17 10:20:008.3[facility] YoeysmvAMGGOICXBJ0892-66-64 10:20:0032.3[facility] CARDIAC TEFLHIQ6514-48-97 10:43:000.18[facility] HermannCARDIAC OJGQPQC0211-99-49 07:05:000.21[facility] HermannCARDIAC CZQMVQC8749-49-45 07:05:44507Eqcunyoy HermannCHEM HPKLO2672-13-78 07:05:002.5[facility] HermannCHEM OKPAH4292-90-46 07:05:002.0[facility] HermannCHEM IPEHW0733-50-72 07:05:0035[facility] HermannCHEM SEJEY3280-92-64 07:05:0068[facility]annCHEM BXYDS5161-77-96 07:05:000.6 [facility]annCHEM DSIES8714-89-78 07:05:0013[facility]annCHEM PANEL 2018-11-30 07:05:003.9[facility] HermannCHEM NADPT5409-16-32 07:05:0027[facility] HermannCHEM VPRAR1705-94-93 07:05:008.2[facility] HermannCHEM IOMLM2463-46-93 07:05:19664Rqynftdt HermannCHEM UOEZB9131-36-45 07:05:007.8[facility] HermannCHEM VPPSD0146-02-80 07:05:77601Rljtgulq HermannCHEM WJCLG6102-29-69 07:05:002.00 [facility]annCHEM ZCLDY1228-54-70 07:05:003.1[facility]annCHEM PANEL 2018-11-30 07:05:64437Ssfpayun HermannCHEM XAPDQ7854-28-75 07:05:0030[facility]annCHEM RIVKR1194-64-84 07:05:0014[facility] HermannCHEM DENXZ5477-57-49 07:05:00 Test Item Value Reference Range Interpretation Comments A/G Ratio (test code = A/G Ratio) 0.7 1 0.7-1.6 [facility]annCHEM SNVOE6787-24-27 07:05:004.7[facility]annCHEM PANEL 2018-11-30 07:05:009.9[facility] HermannCHEM IRKJS0869-75-61 07:05:00 Test Item Value Reference Range Interpretation Comments B/C Ratio (test code = B/C Ratio) 15 1 6-25 [facility] EpjvhuqAPIXAQBCRT8322-18-35 07:05:0032.1[facility] HermannHEMATOLOGY 2018-11-30 07:05:0017.8[facility] IklvtdiNMVHWFPKBS5931-99-94 07:05:00 Test Item Value Reference Range Interpretation Comments MCH (test code = MCH) 30.7 pg 27.0-31.0 [facility] XiakmllFVPRSLIBWV2631-60-75 07:05:003.46[facility] HermannHEMATOLOGY 2018-11-30 07:05:004.9[facility] OpvrtbrZPTHYUFCGJ7766-04-35 07:05:008.2[facility] NmsgtgvCKBCSWJBIK9415-13-98 07:05:0091[facility] OejbyezQFNPSIMBUG5900-88-28 07:05:0095.7[facility] EvzdbqfUTUBLLCTNS4562-08-49 07:05:0010.6[facility] FUWZOBZQZC7778-41-51 07:05:0033.1[facility] ItaqqxyYPOHFOSHLL3007-76-10 07:05:00 3.0[facility] PqsbyfwGLLDCVGEBH9834-91-96 07:05:001.5[facility] HermannHEMATOLOGY 2018-11-30 07:05:000.2[facility] IekuxolLEPZAHATLD2241-40-49 07:05:000.2[facility] MvjtgusPBJNFINOOW2387-98-71 07:05:000.0[facility] VtnxxfkHGBQUPIDDL7827-66-17 07:05:0061.3[facility] IiqwyecEBODNLKDPE5098-54-65 07:05:0029.5[facility] NAVKRLFLYE5320-47-64 07:05:004.4[facility] NwbikmbRMSNRAIZGL0398-19-91 07:05:000.5 [facility] DqhbyfsELILJTIZHM9028-88-60 07:05:004.3[facility] EbfyjsoJXORME3747-02-09 07:05:00 Test Item Value Reference Range Interpretation Comments CHD Risk (test code = CHD Risk) 1.75 1 4.00-7.30 [facility] JtxwfzjTPJDGB2237-12-72 07:05:00 Test Item Value Reference Range Interpretation Comments VLDL (test code = VLDL) 14 1 [facility] NlpjreeSYIONF8729-94-28 07:05:0024[facility] DkfwiskLXXZSS7346-26-08 07:05:0071[facility] OggxoodEUTZHI5809-27-40 07:05:0051[facility] HermannLIPIDS 2018-11-30 07:05:0089[facility] HermannSPECIAL KZNNBCNOB4994-20-89 07:05:006.8 [facility] IgvykeqTQCCHJIBJT9875-32-28 18:17:00 Test Item Value Reference Range Interpretation Comments MCH (test code = MCH) 30.1 pg 27.0-31.0 [facility] FfxqyouXOAWWCCOWH8208-53-28 18:17:0032.4[facility] HermannHEMATOLOGY 2018-03-29 18:17:0092.8[facility] PpxtcifQAXSSFBGUL3771-30-87 18:17:0011.5[facility] XoprpeaEMQHRKRKMN5225-77-45 18:17:0035.6[facility] KrsrjguOSGLDXLFMB1511-40-75 18:17:0018.2[facility] VdhugmzBHOTGPFRTK8591-73-12 18:17:009.8[facility] EEGJVDTQNK3168-90-87 18:17:51315Tsadtosw HjvpqnyXYUJAKDTUM9980-90-46 18:17:005.9 [facility] MrkfhnnXIQMRYQEJW4323-76-34 18:17:003.84[facility] HermannELECTROLYTES 2018-03-29 09:29:0010.6[facility] BrajohzANZYTJHDUWAI6655-32-38 09:29:93246 [facility] NvarornTSWBPFTBMLPM6094-48-27 09:29:0042[facility] HermannELECTROLYTES 2018-03-29 09:29:007.9[facility] JsdvrmpQDRYHEUOKVNV0061-22-82 09:29:0026[facility] IixwvyxUPHPTGIGKOZA3202-04-84 09:29:003.6[facility] ZoqrvyhPJQQIJESNEOI7754-47-64 09:29:19663Bopqfyiy IrrjeufBVNDFWONXHNO9533-10-33 09:29:14762Gfbjlvsf [facility] GHHEZNPZVSTO0661-26-05 09:29:001.70[facility] PpadqbyWUPAWCRMPHVJ3976-13-39 09:29:0020[facility] FosfuzhEGRUGLYAZI2202-38-69 09:29:00 Test Item Value Reference Range Interpretation Comments PT (test code = PT) 17.7 s 12.0-14.7 [facility] BlledznUTJFOWYQTH5790-52-63 09:29:00 Test Item Value Reference Range Interpretation Comments INR (test code = INR) 1.45 1 0.85-1.17 [facility] YnaezapMIVQAW7588-14-95 09:29:00 Test Item Value Reference Range Interpretation Comments CHD Risk (test code = CHD Risk) 1.69 1 4.00-7.30 [facility] McchmwgKOBFRP4678-44-43 09:29:00 Test Item Value Reference Range Interpretation Comments VLDL (test code = VLDL) 13 1 [facility] BgijnqqWMGESM7050-81-47 09:29:0016[facility] SwecqqyRMTKPZ0729-88-93 09:29:0071[facility] GmfsvrxSUENUR1020-95-96 09:29:0042[facility] HermannLIPIDS 2018-03-29 09:29:0066[facility] VuglpxbCLXQUWBDCU2850-69-88 10:42:0062.0[facility] AllkfjcCMXCHKRHNH8609-95-30 10:42:0030.0[facility] AufehfhZNADFPCPVR7213-61-08 10:42:097423Eqkelppc VbogqueFYIOXAMCQF1111-76-33 05:33:008[facility] HermannCHEM ZXPGW1756-44-99 22:16:003.5[facility] JnlugxcDHNQMGRQYY8698-59-78 22:16:20199.44 [facility] GzirrteXJZRRVHTXO0553-88-61 22:16:0013.69[facility] HermannIMMUNOLOGY 2018-03-27 22:16:000.10[facility] PgqbytkQGASNXAZGY8357-29-88 22:16:003.25[facility] WkyduagHSEKPUHBFQ4229-40-96 22:16:000.78[facility] GfzexlnHWMQVHWCKX8172-26-97 22:16:000.32[facility] EtrvyhtIETXWGAOHX9855-69-60 22:16:000.61[facility] BJIMOECZZQ0998-94-50 22:16:007.0[facility] SivvehyBXFBCWQSVH0666-25-30 22:16:00 2.04[facility] OvhhqkoJQTWNDOPDT8995-41-31 22:16:004.6[facility] HermannIMMUNOLOGY 2018-03-27 22:16:0046.4[facility] XrweljfCXCRMPJLIP6232-96-59 22:16:008.7[facility] WocbjyjSZKHFJUTNB9743-51-51 22:16:0011.2[facility] UzpktjmFMCJPOWXZS2503-14-51 22:16:0029.1[facility] HermannCARDIAC HWOJQDP9903-83-24 10:11:05944Hiubxwyu HfouvlsOLIEPXTQBIYR7096-94-70 10:11:0010.7[facility] AgblozaKPVOCFNWBNFZ3258-19-41 10:11:007.5[facility] BtusuzvSLFMLHSNMHYK7227-19-50 10:11:0026[facility] TEFKCDNLLTTO0592-82-95 10:11:0022[facility] IigcvomHUSRQFZWWTNS9331-12-76 10:11:00 1.60[facility] UdjudohYDPWVJWDTMHT3162-06-86 10:11:62495Xhhqcevt [facility] ABWLJIPRBYCY0154-75-25 10:11:32379Qcnovcas QsigvtrOAKEDXDGRQLD1552-00-84 10:11:003.7[facility] YoroztgCWAXNXMNPYDF0836-46-65 10:11:0046[facility] IXDEEQWMCUMK7643-31-52 10:11:0087[facility] DaaaaasPWIBUFEUKJ0960-44-82 10:11:00 Test Item Value Reference Range Interpretation Comments INR (test code = INR) 2.09 1 0.85-1.17 [facility] PumkhwkNLSPERRIFO7611-66-11 10:11:00 Test Item Value Reference Range Interpretation Comments PT (test code = PT) 23.7 s 12.0-14.7 [facility]annURINE AND OJTZJ9588-90-44 14:47:00Positive *ABN*(03/26/18 8:47 AM)[facility] HermannCARDIAC EJHMIZV4814-57-54 10:02:22982Jrcwjyec [facility] IJZHPCIWRKPQ7609-52-85 10:02:009.5[facility] QtscvcuEFMLBKUJYEWE2401-65-93 10:02:0040[facility] ClcwooaSLFOBIJVRENU2350-50-18 10:02:38710Lccdsqbc [facility] TJSWKBAFLLTC7453-45-22 10:02:35729Erttrlua IgsxnmnYVEFSQMBNDMY1333-93-26 10:02:003.5[facility] HkbzsilZFZINQLZNSKN2430-62-69 10:02:0029[facility] CTZTSGCLWBYB9346-93-57 10:02:007.6[facility] ZvvdyauRSYFLFWSRQVO2773-27-40 10:02:001.80[facility] JbxfrmmJTEZWWLGQJTV9899-47-39 10:02:18434Yzqfidoh [facility] AZNRJWYRKJCP2565-46-60 10:02:0025[facility] UzdmtzuXGEDBRAXOR0782-86-06 10:02:00 Test Item Value Reference Range Interpretation Comments PT (test code = PT) 27.1 s 12.0-14.7 [facility] RgklljlGZKYGSQOMV8137-58-34 10:02:00 Test Item Value Reference Range Interpretation Comments INR (test code = INR) 2.48 1 0.85-1.17 [facility] IzksjriTKTYMNXRQU1580-32-13 10:02:001.7[facility] HermannHEMATOLOGY 2018-03-26 10:02:000.2[facility] PagosjbSURVMHOMKA8810-01-40 10:02:001.4[facility] PehuqanNMNUZDEFMR8004-25-82 10:02:003.5[facility] WelmwroFEVQQTTYZF8398-85-82 10:02:000.1[facility] XgqkjkjLQCMLOCCVN5954-40-16 10:02:000.3[facility] QSAKEKPXJE3554-95-97 10:02:0066.1[facility] VibiwksOQTBJGOMZS8096-90-81 10:02:00 5.2[facility] VvqmcbzGHWFINDUVV5894-14-31 10:02:0027.1[facility] HermannHEMATOLOGY 2018-03-26 10:02:001.4[facility] XcxphvhJJJGJZMBUZ8911-14-73 10:02:0033.3[facility] OrkvakwLCDDULUYCW4227-66-23 10:02:00 Test Item Value Reference Range Interpretation Comments MCH (test code = MCH) 30.6 pg 27.0-31.0 [facility] KupjsgeQRMTNPQJPT0523-52-91 10:02:0088[facility] HermannHEMATOLOGY 2018-03-26 10:02:0017.5[facility] XvdzqjgEZXGSAQWDL3009-32-86 10:02:009.0[facility] MwthowvEMWAHQPKAK9977-08-52 10:02:005.3[facility] OictmmnRTUBHEPUCL9498-45-59 10:02:0011.6[facility] FwmlvzvKYEXOPYWVV6247-36-35 10:02:003.81[facility] UARNLZZYNZ4986-69-01 10:02:0091.8[facility] VyutoiwRVODJSZYYW6788-02-45 10:02:00 35.0[facility] KgcmzndZOIKZIMQJM1831-47-17 11:24:003.78[facility] HermannHEMATOLOGY 2017-04-11 11:24:009.4[facility] ZhbadqjBJEFZRZQEQ0178-02-99 11:24:0074[facility] DsstllaQDAXDJQXSF0130-71-48 11:24:0016.3[facility] DqppyhpPMVGCPWDCH2766-11-99 11:24:0090.7[facility] DdvdcacOYQICMZCWO1890-25-66 11:24:0033.9[facility] KKDMMSRKDP1038-01-75 11:24:00 Test Item Value Reference Range Interpretation Comments MCH (test code = MCH) 30.8 pg 27.0-31.0 [facility] YjouzakNCOUQHQDXB9107-85-35 11:24:0034.3[facility] HermannHEMATOLOGY 2017-04-11 11:24:0011.6[facility] JmvlyluZOVJRTWBFS5631-30-31 11:24:004.2[facility] HrecpakHAHGYFCQBL0773-26-82 11:24:005.2[facility] KuzbkvaZFGCFKWJSF9215-16-71 11:24:002.4[facility] LhvdcuiDPAHCIUGAJ0505-32-11 11:24:0058.5[facility] WHOFHHBWDF3341-23-62 11:24:0033.2[facility] VaqsedrUQZAOADGRZ6690-34-84 11:24:00 0.2[facility] MmltvdwNGSSVEFAEA3423-97-33 11:24:000.1[facility] HermannHEMATOLOGY 2017-04-11 11:24:002.4[facility] JkvjsfhBMFRKTKZWG8301-75-37 11:24:001.4[facility] MxbciojKHNTPDGEIZ4740-18-66 11:24:000.7[facility]annURINE AND XOXID4489-18-53 15:39:00Negative (04/10/17 9:39 AM)[facility] PsfoigvURXNXSZYZX6533-07-66 09:27:00 0.1[facility] MijfyruCEQFNESBEH7161-92-45 09:27:000.2[facility] HermannHEMATOLOGY 2017-04-10 09:27:001.5[facility] WqxpvvzDHPQZRDFUA0450-58-71 09:27:002.3[facility] NfpbulvLNDVTOKOMB2598-66-53 09:27:000.7[facility] SyxdvyiNRKCVEHQVQ9947-50-35 09:27:002.6[facility] RlukayrNQTWXYMHDM9570-38-14 09:27:005.2[facility] TRSIKQZNHF5332-54-94 09:27:0035.9[facility] TbleyulKLMVRFKGUZ4253-85-36 09:27:00 55.6[facility] CkudprvOKYHQAJKLU8582-78-88 09:27:0058[facility] HermannHEMATOLOGY 2017-04-10 09:27:009.1[facility] UqafkzzGGNEZNFZON8877-84-84 09:27:0032.5[facility] NkixxmxDEESJMNNQD8759-03-08 09:27:0034.1[facility] SgwxecrEQLPUCZGZY0218-08-98 09:27:0016.2[facility] JruswrjKNFIJYVDTL5082-02-95 09:27:0090.3[facility] ZHQTEGJOWJ3941-39-64 09:27:00 Test Item Value Reference Range Interpretation Comments MCH (test code = MCH) 30.8 pg 27.0-31.0 [facility] BweulmqCCAQREKHKI8968-61-54 09:27:0011.1[facility] HermannHEMATOLOGY 2017-04-10 09:27:004.2[facility] EoslpwiJNKOLGXVTJ3891-77-56 09:27:003.60[facility] HermannANEMIA FOVRK7893-80-28 23:26:20246Fzfduttc HermannANEMIA DOQIN0128-19-67 23:26:007.0[facility] HermannANEMIA ZOSPD1186-76-54 23:26:76120Tmyxagjz [facility] ANEMIA TOXWJ1005-27-85 23:26:0022[facility] HermannANEMIA QWOJG3014-34-43 23:26:00 176[facility] HermannANEMIA TDZKV6799-35-48 23:26:88163Nbuvexuf HermannANEMIA YSRJV2702-18-41 23:26:0050[facility] HermannCHEM WDSAQ0391-48-21 23:26:85476 [facility] HermannCHEM CDFEN7743-16-05 23:26:000.7[facility] HermannCHEM PANEL 2017-04-09 23:26:000.3[facility] HermannCHEM FNGFA4835-70-97 23:26:000.4[facility] SiqjfyiSVRFTGDDOU3462-72-31 23:24:000.8[facility] OcdurguMHKCZVVKAG6320-38-65 23:24:00 Test Item Value Reference Range Interpretation Comments PTT (test code = PTT) 28.0 s 22.9-35.8 [facility] MbcrxgtYYVQVJZEEY3629-65-99 23:24:00 Test Item Value Reference Range Interpretation Comments PT (test code = PT) 19.1 s 12.0-14.7 [facility] WjjfcboOMYOAWDYHQ2741-97-25 23:24:001.59[facility] HermannHEMATOLOGY 2017-04-09 23:24:06761Jfdrhycq BexnyhrKTNYYHDCSN5233-99-94 23:24:009.69[facility] BgjxijiMKWGNGGTZC2808-64-83 23:24:0025[facility]annURINE AND FQCTU5421-73-14 15:14:00<=1.0[facility]annURINE AND IYJID8903-34-72 15:14:007[facility]annURINE AND IXSJK1241-75-85 15:14:00Negative (04/09/17 9:14 AM)[facility]UR[facility] AND PPIWU9467-15-08 15:14:00Negative (04/09/17 9:14 AM)[facility]UR[facility] AND XYOGU4919-23-01 15:14:00Negative (04/09/17 9:14 AM)[facility] KIBIZ5465-01-97 15:14:00Clear (04/09/17 9:14 AM)[facility] JETFY9597-73-99 15:14:001.010[facility] VHJRT4482-04-97 15:14:006.0[facility] DKESX6325-06-71 15:14:001[facility] AND ZYCPY7394-84-78 15:14:001[facility] IUOOG7790-52-29 15:14:00Negative *NA*(04/09/17 9:14 AM)[facility]annCARDIAC EOMHXZP5522-64-50 02:31:31651Hxbnllrr HermannCARDIAC AXGAAGU8981-67-83 02:31:003.7[facility] CARDIAC WYUDCFO1074-99-09 02:31:000.18[facility] HermannCHEM CHGJQ1088-21-23 02:31:00<10.0[facility] RjatvtmAGVUKRANVDFU4658-75-30 02:31:0011.4[facility] LpfgzeaSXRLNPZULQEC6425-44-87 02:31:0028[facility] VgssgscKMYOMGLZXFVD5012-29-55 02:31:0023[facility] FqmacclFCSDOXOJYXFX3715-09-86 02:31:002.40[facility] UEGBYFDTSBEG7805-84-28 02:31:32664Hinxkeyf VogjjnnGEXXAIVMBUJU3410-17-80 02:31:003.4[facility] YkcwcdjYIUSUOHHKDBG8582-86-64 02:31:86748Geclhrcr [facility] AEOWFHCSPCXI0623-73-37 02:31:0026[facility] ZflqsiiADDXPLVDPFIW4342-13-18 02:31:00 8.1[facility] ZottqxvWNDWNYLUUIFL2023-77-59 02:31:07543Cebobapb HermannHEMATOLOGY 2017-04-09 02:31:0061[facility] JuajazdWNSZSFUDIT3512-45-68 02:31:0016.6[facility] ZgahzhuXOOTADLLUY2470-36-22 02:31:0033.3[facility] BnepmkvLCARNPSVMC2167-95-00 02:31:0091.2[facility] YxxelgbIYOWRCOPTH8916-62-61 02:31:00 Test Item Value Reference Range Interpretation Comments MCH (test code = MCH) 30.4 pg 27.0-31.0 [facility] QrndfbzDJIXAJQQKK2519-70-83 02:31:004.3[facility]annHEMATOLOGY 2017-04-09 02:31:003.84[facility] ZwdnvqoPBIQHWNEJK8640-24-95 02:31:0011.7[facility] WbqqlpbJNXCPOAJBW8316-74-49 02:31:009.5[facility] DjoijbhBXAMEDFJYQ7407-16-62 02:31:0035.0[facility] NlcrnbnUPLGQBGQPK5085-31-55 02:31:00 Test Item Value Reference Range Interpretation Comments PTT (test code = PTT) 26.7 s 22.9-35.8 [facility] QnjknwvVYTPRTDZCJ4675-29-79 02:31:001.67[facility]annHEMATOLOGY 2017-04-09 02:31:00 Test Item Value Reference Range Interpretation Comments PT (test code = PT) 19.8 s 12.0-14.7 [facility] UhzypsiPQAALVUUWB9747-55-38 02:31:0026.2[facility]annHEMATOLOGY 2017-04-09 02:31:0069.6[facility] TpnwwmmUEMREIXLVM5142-69-25 02:31:001.0[facility] GomyoidDIOJESCYKS8807-65-29 02:31:003.0[facility] WieroorTOKNHOFQXS2303-70-53 02:31:000.2[facility] VrsowyeECCJQTJUPD2313-93-95 02:31:000.1[facility] PRHRTOCIVC9142-19-42 02:31:001.1[facility] KkrdhxzITPXKNBERQ1103-23-68 02:31:000.0 [facility] QdyclzwNYRDZNGZNX5474-01-45 02:31:003.0[facility]annHEMATOLOGY 2017-04-09 02:31:000.0[facility] InnbtktHKYJLBTKLE7823-93-80 10:18:0010.7[facility] TrgcaylIRIAVWTBUE6729-04-66 10:18:0092.8[facility] BrvnxrrQBWQPQWGIG2247-50-56 10:18:00 Test Item Value Reference Range Interpretation Comments MCH (test code = MCH) 30.5 pg 27.0-31.0 [facility] TxvgosrBHHUDBKIWW8826-76-59 10:18:0012.3[facility]annHEMATOLOGY 2017-03-23 10:18:0037.5[facility] AkbsoctDYAEFLBSTA9790-38-75 10:18:0032.9[facility] FwqgpxzGVSCIFRNYD1703-41-14 10:18:0041[facility] MfziizrGAXMVFZTCW1630-81-55 10:18:0016.7[facility] EphlfiuFEWWAZPCXP6290-14-60 10:18:006.8[facility] KEAERRCUKP0912-13-45 10:18:004.04[facility] YjsbrefCWVYPNNCIZ6305-43-68 10:18:00 0.1[facility] ThmdtwdUUNOYSMLJV0162-40-30 10:18:003.2[facility]annHEMATOLOGY 2017-03-23 10:18:001.3[facility] PrxekpbSCENDTULES6668-36-83 10:18:0073.3[facility] SqsytzzMSZOGWLQUT0374-22-49 10:18:0022.1[facility] LkbeyflNVTUHFHEII9320-35-68 10:18:000.0[facility] DhqeamxXXCFEOKYZY7174-61-73 10:18:000.2[facility] WVRNPFCQTX0382-83-61 10:18:000.1[facility] MsnzxqwGORWHTWRAY8267-91-30 10:18:005.0 [facility] WqnkkdvWXUMOXBINO6588-67-54 10:18:001.5[facility] HermannELECTROLYTES 2017-03-22 10:26:0015.8[facility] MqqiproNRIIDQFNWFKJ7640-38-63 10:26:008.8 [facility] DzhuhhdACBBGHLKIXHP7435-04-46 10:26:0026[facility] HermannELECTROLYTES 2017-03-22 10:26:77838Zrjrmcwj GyhieqpHJXYAZZUGGVO7547-45-66 10:26:0040[facility] KfxemunYMFEFULOOFXO8105-67-89 10:26:0096[facility] WymzhxuZPODPXECJLRU6548-22-32 10:26:003.8[facility] MpgmhzjKFDGCHRFBLAO3907-70-21 10:26:0025[facility] VWHZILDUHUIY7902-95-61 10:26:16228[place] WyhewbnTJXRRTRIOODV0372-31-37 10:26:002.60[facility] BawdbeaIKXCSGRCLN2770-35-80 10:26:000.3[facility] TYNYQXTFID5118-03-60 10:26:001.2[facility] TiqilyvUGOWEYMVTP0881-31-22 10:26:000.1 [facility] FxberleISMPDHHSMJ6886-73-02 10:26:003.7[facility]annHEMATOLOGY 2017-03-22 10:26:0069.6[facility] LjcnfypLHDGQQHWRQ5539-61-17 10:26:0023.0[facility] JfunevxWRIVCWJMVV8149-59-32 10:26:001.9[facility] IghtsinLREDVEHABW4191-19-03 10:26:004.9[facility] HluwplbXJKAREQRIG5587-08-41 10:26:000.6[facility] VJDMPPLCFA8449-50-68 10:26:0033.2[facility] BnisagiQGAFMJXNVN6527-42-50 10:26:00 92.0[facility] ZeqfaloCHKCXYUSPP6665-62-60 10:26:0011.9[facility]annHEMATOLOGY 2017-03-22 10:26:00 Test Item Value Reference Range Interpretation Comments MCH (test code = MCH) 30.5 pg 27.0-31.0 [facility] BdprhxmFSFCHZFDQU5588-06-53 10:26:0035.7[facility]annHEMATOLOGY 2017-03-22 10:26:008.9[facility] YuhhvmfROVRCZBGWA5404-90-15 10:26:0058[facility] CcoqsxpZOJDRTUYZL7634-57-56 10:26:0016.4[facility] JaxmbeqQNKCBLKWQN8335-74-18 10:26:003.88[facility] RetvgirPIEHHITEMO5880-27-67 10:26:005.3[facility] WOUAZZTSUZFB1399-43-70 09:55:0014.5[facility] MexpqmePTJZKEAWVWHG9182-47-97 09:55:0022[facility] OiljrfhEMKGPKLQUZHN6215-60-13 09:55:002.90[facility] LFHJUIKTFDZV0016-14-31 09:55:0044[facility] IkxwbheDEIZDYHXMACT0599-73-99 09:55:00 97[facility] CpucpniZTQRBVOOHPGT4253-60-63 09:55:10548Yjbmmlnq HermannELECTROLYTES 2017-03-21 09:55:003.5[facility] AifusuxQAMPENJJYGZO4847-47-62 09:55:009.0[facility] HpzmybnMJOFSDTEKOBE3051-01-11 09:55:0027[facility] BrdqdslNGQVHWTKCEKS1574-55-54 09:55:09580Xxvcytoy ZlkbismMKKMCYZFZC2474-05-74 09:55:000.0[facility] ZMIJVHFVOA1318-37-13 09:55:001+ *ABN*(03/21/17 3:55 AM)[facility] FSTIYGJTPN9030-01-16 09:55:001.4[facility] QqyacbfUTWXZXRDUJ3475-59-86 09:55:004.9 [facility] IfteogiYCNPMRZFCT7033-97-76 09:55:0027.5[facility] HermannHEMATOLOGY 2017-03-21 09:55:000.2[facility] FgmjkttHMMSDAXYEF4903-68-03 09:55:001.4[facility] UqyrvarZVNMIGZUGB0852-48-74 09:55:000.6[facility] KzrkommADFPHIIFYN2585-51-34 09:55:003.3[facility] BgiecssWDYQVLTBGU5161-49-68 09:55:0065.6[facility] RBODPUKVNR0350-01-57 09:55:000.1[facility] QpvgiaoYMUSWIRZTG2313-86-71 09:55:00 Test Item Value Reference Range Interpretation Comments PT (test code = PT) 14.3 s 12.0-14.7 [facility] IdimagaNCHRQWJQCG3300-15-94 09:55:001.11[facility] HermannHEMATOLOGY 2017-03-21 09:55:0012.0[facility] RdubfotZWDXQJKYNG6993-30-71 09:55:0035.4[facility] EgvqtsvMNEFPQBUHR9101-59-83 09:55:0091.2[facility] XkthhedXVCKSMIBOQ9005-99-65 09:55:003.88[facility] TxlviqgZMDMQNSDQJ4023-61-30 09:55:005.0[facility] QSKETVXJFV6225-87-63 09:55:0016.3[facility] QjeiebzAZHCYMCTMB1197-62-94 09:55:0065 [facility] DjimmjtBTIZYGUOMX0290-15-14 09:55:008.8[facility] HermannHEMATOLOGY 2017-03-21 09:55:00 Test Item Value Reference Range Interpretation Comments MCH (test code = MCH) 30.8 pg 27.0-31.0 [facility] NejwjfhWHHGIEVYFR5935-86-48 09:55:0033.8[facility] HermannIMMUNOLOGY 2017-03-21 09:55:00Negative (03/21/17 3:55 AM)[facility] HermannELECTROLYTES 2017-03-20 11:35:0016.2[facility] GifnvewJVXWQITZBMTV7283-75-13 11:35:0024[facility] VmbqlyxXUGCYRCFYVGE1971-50-73 11:35:009.1[facility] XwflsguHYBYKNBBKOLB8701-29-20 11:35:0095[facility] YtjkptoNLDDLSATNGOV5013-16-89 11:35:0043[facility] CVCSOSBLYHHU1794-84-89 11:35:0098[facility] TsowvuhPCCHSTUKURHT5641-70-72 11:35:00 3.2[facility] BnboariDCMXRMBJKFCL1205-88-08 11:35:0024[facility] HermannELECTROLYTES 2017-03-20 11:35:03378Dxrlmyfb EknukxkKLDIIHNMBJKF1682-56-03 11:35:002.70 [facility] AgcvbsmBUJMPHOJRJ5258-99-94 11:35:00 Test Item Value Reference Range Interpretation Comments PT (test code = PT) 14.4 s 12.0-14.7 [facility] KwslcwyLYHVFQETNT8090-97-81 11:35:001.12[facility] HermannHEMATOLOGY 2017-03-19 11:42:001.20[facility] PivahxmIEZDRAUYLJ8475-13-52 11:42:00 Test Item Value Reference Range Interpretation Comments PT (test code = PT) 15.3 s 12.0-14.7 [facility] HermannCHEM LRJTZ9271-98-99 14:57:002.3[facility] HermannCHEM PANEL 2017-03-18 14:57:002.9[facility] HermannCHEM GCRKY6949-99-18 14:57:002.0[facility] UkgsjhkPMHWVMQFZR9006-93-47 14:57:000.0[facility] SnvipgiAYDHDECGJS9008-57-87 14:57:00 Test Item Value Reference Range Interpretation Comments PTT (test code = PTT) 38.2 s 22.9-35.8 [facility] OnzerqqRHZOMMKLBY1634-79-82 14:57:00<10[facility] HermannHEMATOLOGY 2017-03-18 07:48:00 Test Item Value Reference Range Interpretation Comments PTT (test code = PTT) 49.8 s 22.9-35.8 [facility] CenterMtznypvOADWPAMGCL2790-81-45 02:24:00 Test Item Value Reference Range Interpretation Comments PTT (test code = PTT) 33.2 s 22.9-35.8 [facility] CenterAiydaihYTVSESDRKZ7664-82-21 18:58:003.61[facility] HermannHEMATOLOGY 2017-03-17 18:58:38624Miecsaje TlbjtzzASPYITVHZB0714-70-51 18:58:00Negative 1(03/17/17 12:58 PM)[facility] CenterAntaalcJQCOZKZTRG2170-59-33 18:58:00 Test Item Value Reference Range Interpretation Comments Pat Od Value (test code = Pat Od 0.069 1 Value) [facility] CenterXqlxgybAHWBXDEZSW6092-68-68 18:58:00 Test Item Value Reference Range Interpretation Comments Pos CO Value (test code = Pos CO 0.400 1 Value) [facility]annCHEM WNMVF0381-23-25 10:09:003.0[facility] HermannCHEM PANEL 2017-03-17 10:09:002.4[facility] HermannCHEM WFSHJ6027-93-01 10:09:002.3[facility]annURINE AND XCJIR8277-00-02 02:57:006.0[facility]annUR[facility] AND STOOL 2017-03-17 02:57:001.012[facility]annURINE AND YZYPA7832-11-46 02:57:00 <=1.0[facility]UR[facility] AND DUYQT3569-93-30 02:57:001[facility] AND GVBAJ9007-39-90 02:57:00Negative (03/16/17 8:57 PM)[facility] HMOPA2236-59-91 02:57:00Negative (03/16/17 8:57 PM)[facility] RNHRQ6679-74-33 02:57:00Negative (03/16/17 8:57 PM)[facility] AND JBQZR4198-28-45 02:57:00Negative *NA*(03/16/17 8:57 PM)[facility] DMPRT5553-22-22 02:57:00Clear (03/16/17 8:57 PM)[facility]annURINE CHEM 2017-03-17 02:57:000.1[facility]annURINE RTQR8918-30-34 02:57:00None Seen (03/16/17 8:57 PM)[facility]UR[facility] RMHX4275-86-54 02:57:45888.00[facility]annURINE IHQU8634-24-08 02:57:0014.8[facility]annURINE SCEB8737-07-09 02:57:0033[facility] HermannCARDIAC VPBKMJM5271-48-03 19:09:001.8[facility] CARDIAC IDGZONK6720-58-48 19:09:14464Zjlczivy HermannCARDIAC TZQGCKZ4283-34-97 19:09:002.1[facility] HermannCARDIAC ENYLDFV5011-95-98 19:09:000.15[facility] HermannCARDIAC TLNEODG4067-87-31 19:09:95288Jongehfv HermannCHEM PPUPY8496-06-84 19:09:000.07[facility] QurnfytPAEDJBCOWS9087-46-74 19:09:0054[facility] CHVLARSSXRWO0993-59-90 09:32:0015.7[facility] IpttiapNANGWGYGWCVZ1267-06-68 09:32:0024[facility] TwoqkorVTNJCJSESTUR2471-31-36 09:32:61953Xfhkepbe Noel VXWUGKBQOFSC5772-26-97 09:32:003.7[facility] QmzjarcUCXSHKLQUNYZ0457-04-85 09:32:95406Apqiggvz JtxitmjONRQVXZSVNVA3629-30-24 09:32:0043[facility] ROFJYVQKGJRD9562-46-66 09:32:007.9[facility] UzscobiFWNWYXUXZDMG7169-93-42 09:32:73804Jyhrghzu XwcrjhtFPFESFRPGNAR1729-22-85 09:32:0034[facility] FLDMUWXQVIOT2323-33-97 09:32:001.70[facility] JbwqtkcOWWMCI8897-36-53 09:32:0017 [facility] IktnsqgVVWQXF7518-36-53 09:32:0031[facility] HwqgwbtKAPFVG8138-54-52 09:32:99153Wuyxkkph LxekqciSVUFCZ5039-60-86 09:32:0085[facility] HermannLIPIDS 2016-03-11 09:32:001.89[facility] EmuoxzjYSDZCR3839-37-91 09:32:0054[facility] HermannCARDIAC UZOMACA2285-96-55 21:57:96645Kllbrsxd HermannCARDIAC ENZYMES 2016-03-09 21:57:002.0[facility] HermannCARDIAC CZTATVN1701-43-78 21:57:000.19 [facility]annCARDIAC HBJGIJL7034-95-40 21:57:001.7[facility] HermannCARDIAC MTBZJIL1230-35-12 21:57:0084[facility] HermannCHEM HOKOV3280-80-40 21:57:0035 [facility] HermannCHEM XMONV6804-63-24 21:57:0029[facility] HermannCHEM PANEL 2016-03-09 21:57:003.8[facility] HermannCHEM DSFIJ9300-86-15 21:57:008.2[facility] HermannCHEM FQGYT7616-75-09 21:57:55197Gcdeiphq HermannCHEM CJMQB9168-55-92 21:57:23888Nhziwnds HermannCHEM IYYWB5046-26-99 21:57:002.00[facility] HermannCHEM BXHTM8726-40-11 21:57:0034[facility] HermannCHEM IGEZJ2220-39-87 21:57:81095 [facility] HermannCHEM SYKGS3916-81-45 21:57:0013.8[facility] HermannHEMATOLOGY 2016-03-09 21:57:0010.1[facility] MagpdvuUPTJCRWIIR5718-07-35 21:57:93840Ghdrvefm XuomxusOZZMGDJWHV4661-66-67 21:57:0018.7[facility] XwtlbuwLYYKHAZEIN2046-34-71 21:57:0012.4[facility] GrkwkvaUVKMYGCZBT6044-25-41 21:57:0032.0[facility] XLVIZMOHZM3649-95-02 21:57:00 Test Item Value Reference Range Interpretation Comments MCH (test code = MCH) 27.8 pg 27.0-31.0 [facility] UcxvacgZIRAUKKZCK4641-37-40 21:57:0086.7[facility] HermannHEMATOLOGY 2016-03-09 21:57:0038.7[facility] AropmvnIKCPDHJLHG6711-94-94 21:57:004.46[facility] RdfxeutSSNFUUBRMI2481-63-98 21:57:006.5[facility] SduemneMKUZWPUZBK2213-55-50 21:57:003.9[facility] HjyptueNJADAKLTWL9297-06-24 21:57:002.0[facility] TICQYILFZR5327-80-49 21:57:004.1[facility] IqkhexsKGIYZTCLRF4029-75-56 21:57:000.0 [facility] GxpgtnaNOGFRTSJWQ8494-36-53 21:57:000.5[facility] HermannHEMATOLOGY 2016-03-09 21:57:001.7[facility] PlgjiihAQFYZBVYRA6171-51-61 21:57:000.1[facility] EbkuvbuZSFPDVLWVB3997-73-69 21:57:000.3[facility] KjvkrzjQMCZHYMBXV3978-56-95 21:57:0030.7[facility] YweekwiSCLDVIZSZM5883-04-16 21:57:0063.2[facility] URINE AND DZKAA9883-95-12 21:57:006[facility] HermannURINE AND XEFFX7197-78-26 21:57:001[facility]annURINE AND GDRWW4113-84-34 21:57:00Small *ABN*(03/09/16 4:57 PM)[facility] AND TCXYC8121-09-03 21:57:00Negative (03/09/16 4:57 PM)[facility]annUR[facility] AND SPYDH2542-80-90 21:57:00<=1.0[facility]annURINE AND DAGEC8269-48-06 21:57:00Negative *NA*(03/09/16 4:57 PM)[facility] AND IXKSS5838-17-02 21:57:00Negative (03/09/16 4:57 PM)[facility]UR[facility] AND FOMNW1865-99-41 21:57:007.0[facility]annURINE AND STOOL 2016-03-09 21:57:00Clear (03/09/16 4:57 PM)[facility] AND STOOL 2016-03-09 21:57:00Light Yellow *NA*(03/09/16 4:57 PM)[facility]annUR[facility] AND TPWOZ7943-87-57 21:57:001.009[facility] HermannCARDIAC SGVBVGI9912-29-56 09:41:00 1.0[facility] HermannCARDIAC TNHOXRZ1473-85-75 09:41:000.9[facility] HermannCARDIAC TAXWRSK7271-97-29 09:41:000.17[facility] HermannCARDIAC RGZATRB4691-53-85 09:41:00 91[facility] KkfjddmYLENJUPETSOY6554-77-33 09:41:0012.1[facility] BVOSIPLKNJMM4906-69-17 09:41:004.1[facility] HsrbccuOTWLMUDJPALY8016-53-68 09:41:86586Wzrsfiqf MnjckpiKKYNYAEELJNF9600-60-93 09:41:0034[facility] HOHWBGEUXEOP5259-34-92 09:41:0030[facility] DdxquhaKMQUIFAKSBDK0012-97-59 09:41:00 8.5[facility] ZypkbwgULEXYOSAFUHM4325-06-23 09:41:0093[facility] HermannELECTROLYTES 2016-01-18 09:41:0027[facility] OldcznaNZSPMZLHXXCQ1350-64-83 09:41:002.05[facility] YrjaedaQPSMQFPFVEEB2461-16-95 09:41:25305Kxzqdwbg PyrbhheNNUPZGRYGV3614-93-92 09:41:0087.5[facility] XjqwhakSGIEDGPAAF9384-91-38 09:41:00 Test Item Value Reference Range Interpretation Comments MCH (test code = MCH) 28.0 pg 27.0-31.0 [facility] UegvlhpYVGDGMDEUD3471-53-85 09:41:0017.7[facility] HermannHEMATOLOGY 2016-01-18 09:41:0032.0[facility] RdkzoieEGWPYZMOIV5078-27-29 09:41:008.8[facility] TnihxtvGOVNBRPEUG5985-80-72 09:41:34358Khlmamoh FxnqtiySAIZAWPTMV3997-83-28 09:41:005.2[facility] WkteybbBPAOBBMHOY0340-38-84 09:41:0032.9[facility] MJYSLXTRTA5796-13-96 09:41:0010.5[facility] ErvbihiAEAPBBVWOV8545-44-00 09:41:00 3.76[facility] KxuxcguBTOLMCNLHZ0891-72-14 09:41:005.9[facility] HermannHEMATOLOGY 2016-01-18 09:41:0053.3[facility] WexsvpcAOJVUVXKRN4562-12-41 09:41:003.7[facility] PewonqtQVQNWGHCBE3877-25-39 09:41:0036.8[facility] YzrcoprYFXKARZXIV2679-33-14 09:41:001.9[facility] SyxcqwyRKMNTBCSHW8187-40-43 09:41:000.3[facility] JBYUHDYIEP9381-24-21 09:41:002.8[facility] DwvhbolBSGWHLYTCL7345-52-47 09:41:000.0 [facility] AcvpalzPOSTIPIRZG1058-97-76 09:41:000.3[facility] HermannHEMATOLOGY 2016-01-18 09:41:000.2[facility] UvzfvsdMJMMWY2965-05-86 09:41:0017[facility] EetrsvgEOSGNI6556-54-12 09:41:0034[facility] SiredohSVWYFO1488-05-53 09:41:0084 [facility] UbmrqxzVSOBLR8608-48-36 09:41:0051[facility] McabusfYMOBFR4870-78-17 09:41:79421Cmhpxbek IwjscydEKZNQF0075-40-60 09:41:002.00[facility] HermannCARDIAC LNAPPBI8831-79-19 02:20:001.3[facility] HermannCARDIAC QPIIWBP4089-77-09 02:20:00 1.2[facility] HermannCARDIAC GDCVZZY7886-70-23 02:20:000.16[facility] HermannCARDIAC ZORJKDL1313-79-45 02:20:0095[facility] GipwhrrCLJOXOUIRE5325-84-74 02:20:00 Test Item Value Reference Range Interpretation Comments PTT (test code = PTT) 28.0 s 22.9-35.8 [facility] EsegsrdSYVBCUZYNT8970-19-41 02:20:001.22[facility] HermannCARDIAC ENZYMES 2016-01-17 21:51:001.6[facility] HermannCARDIAC JGNJTTO5061-20-34 21:51:000.18 [facility] HermannCARDIAC FVEMMZP8796-23-28 21:51:98986Qhieqfps HermannCARDIAC MOYZAXE6382-30-06 21:51:59121Ylflmjbj HermannCARDIAC ROPALRZ7460-30-88 21:51:00 1.5[facility] HermannCHEM AYRMJ6378-08-10 21:51:0035[facility] HermannCHEM PANEL 2016-01-17 21:51:000.6[facility] HermannCHEM OSTAE2536-50-17 21:51:005.1[facility] HermannCHEM LHSMQ8011-51-22 21:51:0013[facility] HermannCHEM HVDGX0622-39-55 21:51:0082[facility] HermannCHEM PNYGV2659-08-57 21:51:0011.9[facility] HermannCHEM ZQTTJ8394-30-58 21:51:000.3[facility] HermannCHEM TUOPT9962-35-66 21:51:0012 [facility] HermannCHEM ZCXTO5665-65-65 21:51:0014[facility] HermannCHEM PANEL 2016-01-17 21:51:003.1[facility] HermannCHEM WLRGI2635-32-56 21:51:0027[facility] HermannCHEM RVZPM3043-96-48 21:51:35260Mjbobtmz HermannCHEM HBUVK3929-33-01 21:51:008.2[facility] HermannCHEM KUTUD4558-62-10 21:51:008.1[facility] HermannCHEM EXTOM9049-01-83 21:51:002.02[facility] HermannCHEM YWTPC5284-12-65 21:51:0028 [facility] HermannCHEM KKXMF8653-93-61 21:51:77664Atztiadu HermannCHEM PANEL 2016-01-17 21:51:003.9[facility] HermannCHEM WOTZF2548-31-23 21:51:80949Cwjwbcsm UwypaobHGOYYISMCJ2596-93-13 21:51:0032.7[facility] GhldosbUPDPRVPKJJ3071-32-11 21:51:0087.5[facility] WvzqcqmPWWVUNVGRH7615-87-38 21:51:00 Test Item Value Reference Range Interpretation Comments MCH (test code = MCH) 28.0 pg 27.0-31.0 [facility] UkmlbmfIRZWDXXTMP1199-68-53 21:51:0032.0[facility] HermannHEMATOLOGY 2016-01-17 21:51:0017.9[facility] SedudfgROQCNFTHKH0280-07-27 21:51:83301Mauktgik RfvbikiNSFEEQSSAG2842-95-07 21:51:008.3[facility] LjiyqcqHWUNUQKDNX0057-62-27 21:51:005.5[facility] AqaothlPLXWXONRWU1013-95-43 21:51:003.73[facility] PNCTIRJRFJ0072-26-04 21:51:0010.4[facility] EkirnmdMPAJCURERJ2360-73-52 21:51:00 33.3[facility] TqvrrqaVZMXLTKIPD4641-71-70 21:51:002.5[facility] HermannHEMATOLOGY 2016-01-17 21:51:005.8[facility] XbzimqgRCPFEKZUAE0374-51-11 21:51:000.3[facility] MqpfwugULUBMUBSRK8635-26-81 21:51:003.2[facility] OtwotbiEYKZTKDJIO7799-29-12 21:51:001.8[facility] XogcxspKHDITEPYWP7606-50-58 21:51:000.3[facility] RAZSXJWXOE4655-06-65 21:51:000.1[facility] UvnmxzlPQVKSRVWSY7585-89-65 21:51:000.0 [facility] WqnvdphXOZFAUJQLP4634-81-56 21:51:0058.1[facility] HermannCHEM PANEL 2015-05-28 21:44:0047[facility] HermannCHEM SXRTJ5111-62-42 21:44:0012[facility] HermannCHEM WEUBT7204-90-80 21:44:003.5[facility] HermannCHEM LQOKX7957-56-30 21:44:007.7[facility] HermannCHEM XRGOV3323-83-46 21:44:0076[facility] HermannCHEM YXITD1944-28-72 21:44:000.4[facility] HermannCHEM MCHWH0961-70-32 21:44:0017 [facility] HermannCHEM WVFPJ7468-80-06 21:44:001.60[facility] HermannCHEM PANEL 2015-05-28 21:44:48576Zumdypjf HermannCHEM BPHDG2119-24-33 21:44:004.3[facility] HermannCHEM FVJHP1945-64-13 21:44:75273Leqfjqvz HermannCHEM LZSPR6461-24-67 21:44:008.5[facility] HermannCHEM CZKTT4799-44-11 21:44:0028[facility] HermannCHEM BUZMP4321-20-85 21:44:0082[facility] HermannCHEM XETOH7017-39-04 21:44:0027 [facility] HermannCHEM PJZOP6874-17-35 21:44:000.8[facility] HermannCHEM PANEL 2015-05-28 21:44:004.2[facility] HermannCHEM BBGWX0812-67-20 21:44:0010.3[facility] HermannCHEM NENVC4293-40-78 21:44:0017[facility] IexzbrrUKFIRFCVDP3929-03-56 21:44:00 Test Item Value Reference Range Interpretation Comments PTT (test code = PTT) 23.6 s 22.9-35.8 [facility] FaiiglnMILRUJALWJ9716-27-97 21:44:001.12[facility] HermannHEMATOLOGY 2015-05-28 21:44:00 Test Item Value Reference Range Interpretation Comments PT (test code = PT) 14.7 s 12.0-14.7 [facility] KksjvidSVEAIMLQIA7328-48-98 21:44:0072[facility] HermannHEMATOLOGY 2015-05-28 21:44:009.8[facility] UhvjrgcDPJUFJAPKN8812-14-19 21:44:0018.5[facility] BhavuuwFBQAXALOAP7403-08-28 21:44:0033.3[facility] DuipmqyIERUVJPGAA5522-20-74 21:44:0087.0[facility] TtzeawzQDYZFLLJLS5863-56-28 21:44:00 Test Item Value Reference Range Interpretation Comments MCH (test code = MCH) 28.9 pg 27.0-31.0 [facility] OigqqmmHSYZDBNKYM8052-42-66 21:44:0036.7[facility] HermannHEMATOLOGY 2015-05-28 21:44:0012.2[facility] FxnvarpGUCLYCEPRV3393-87-02 21:44:004.22[facility] UhaeihlZKCXFUJHYF3574-03-97 21:44:005.9[facility] UxgadfvSDBLOBFPOB0906-26-27 21:44:000.1[facility] LcyljbpVSNILQYUCH9808-66-08 21:44:000.0[facility] EHQCETSBUF9069-84-11 21:44:000.5[facility] NwuhtpzDHZBJPPLQE8155-71-02 21:44:001.7 [facility] XeoneaaGPPHSQWPPB5581-04-63 21:44:003.6[facility] HermannHEMATOLOGY 2015-05-28 21:44:002.3[facility] PbatdlkSVTOWGMBYC3238-73-87 21:44:008.0[facility] QlaezcqDRUKLUKTFN5485-41-87 21:44:0028.5[facility] IwtyygcGLTONBDVLQ3683-53-09 21:44:000.3[facility] NdluqxnZQOYKWJNKD7339-24-39 21:44:0060.9[facility] URINE AND ANVKV7182-49-41 21:44:00None Seen (05/28/15 3:44 PM)[facility]INE AND YKZRG0773-27-91 21:44:00None Seen (05/28/15 3:44 PM)[facility]INE AND RFEPP0698-75-27 21:44:00Large *ABN*(05/28/15 3:44 PM)[facility] URINE AND JNUAO7840-24-69 21:44:000.2[facility]annURINE AND RXZVV8193-63-19 21:44:00Positive *ABN*(05/28/15 3:44 PM)[facility]annUR[facility] AND GNKXA1833-07-11 21:44:00 Test Item Value Reference Range Interpretation Comments UA Spec Grav (test code = UA Spec 1.015 1 Grav) [facility] YGXYS3932-14-50 21:44:00Slight Cloudy (05/28/15 3:44 PM)[facility]annUR[facility] AND MFCNR1495-57-09 21:44:00 Test Item Value Reference Range Interpretation Comments UA pH (test code = UA pH) 7.0 1 5.0-8.0 [facility] XFTWW0742-44-06 21:44:00Yellow *NA*(05/28/15 3:44 PM) [facility] JIWYB6402-83-98 21:44:00Negative (05/28/15 3:44 PM) [facility] XROLM1710-69-11 21:44:00Negative *NA*(05/28/15 3:44 PM) [facility] PLPLJ2392-86-64 21:44:00Moderate *ABN*(05/28/15 3:44 PM)[facility]UR[facility] AND UTJKU7484-40-14 21:44:00Negative *NA*(05/28/15 3:44 PM)[facility] IlzcxntRAROINSYNJ5638-59-99 20:07:00 Test Item Value Reference Range Interpretation Comments POC PT (test code = POC PT) 12.2 s 12.0-14.7 [facility] OawvzuqHKOLEKLVVV8040-12-95 20:07:001.0[facility] HermannCARDIAC ENZYMES 2015-04-22 00:26:000.9[facility] HermannCARDIAC DPTVNON5774-48-87 00:26:000.20 [facility]annCARDIAC BQWMOSX9699-20-65 00:26:001.6[facility] EHVFHGS3315-31-54 00:26:28911Ylttbpcq [facility]annCARD[facility]AC OCSTLWH9654-14-38 17:11:00 0.24[facility] FMWETEO2451-84-35 17:11:002.3[facility] IAPVSRC2910-41-80 17:11:57496Eonqixaw [facility]annC[facility]AC ZKFUJLE4039-35-58 17:11:00 1.7[facility] ZVFIZBO9424-16-76 09:10:83364Zsptsafs [facility] IGXSUMX9367-81-98 09:10:001.8[facility] GQSQVII5403-08-76 09:10:00 0.24[facility] CPWXLMF4448-23-99 09:10:11143Fvrmztam HermannCARDIAC LPAEVHY3547-62-73 09:10:001.4[facility]annCHEM QDMLQ4911-95-05 09:10:002.2 [facility]annCHEM TCDLM4529-52-70 09:10:002.0[facility]annCHEM PANEL 2015-04-21 09:10:0097[facility]annCHE[facility] GYJKM3836-57-08 09:10:0020[facility]annCHE[facility] OLFDT1871-17-40 09:10:006.9[facility]annCHE[facility] VVFSM7559-79-38 09:10:003.1[facility]annCHE[facility] YYOVT3476-73-46 09:10:0018[facility]annCHEM JOPEK8607-24-27 09:10:001.70[facility]annCHE[facility] GDNCU3425-60-38 09:10:34722 [facility]annCHE[facility] AROZR6036-18-94 09:10:27390Xndguuog HermannCHEM PANEL 2015-04-21 09:10:0073[facility]annCHE[facility] MYKQV2869-02-28 09:10:003.6[facility]annCHE[facility] FYVEW0450-12-74 09:10:0024[facility]annCHE[facility] XMMWJ0661-38-80 09:10:0043[facility]annCHE[facility] MXGCT2362-33-15 09:10:008.2[facility]annCHEM UQLFK7796-62-68 09:10:0027[facility]annCHEM DAPOK7774-14-79 09:10:000.5 [facility]annCHE[facility] ADDJL0715-60-80 09:10:0012[facility]annCHEM PANEL 2015-04-21 09:10:003.8[facility]annCHEM GTOTH4029-31-04 09:10:000.8[facility]annCHEM YDXSA3899-25-13 09:10:0011.6[facility] YgpuwmcJLVLDQJEXN9794-40-41 09:10:0088.7[facility] JuebnnbBANQRUOWSB7490-54-69 09:10:003.94[facility] DJNPONIRBW1664-31-78 09:10:0011.1[facility] PgiyyeiFEBKMREVBY4282-18-25 09:10:00 4.8[facility] LjudiqnAEYTBDYZIT3832-45-64 09:10:0035.0[facility]annHEMATOLOGY 2015-04-21 09:10:0085[facility] HzuezemDQEMQSBCSD0137-41-85 09:10:00 Test Item Value Reference Range Interpretation Comments MCH (test code = MCH) 28.3 pg 27.0-31.0 [facility] QrjvibyYUGFXNMIND9650-50-60 09:10:0031.9[facility]annHEMATOLOGY 2015-04-21 09:10:0017.7[facility] JqvtakmRNTSNQXQTV5380-60-44 09:10:0010.2[facility] RljsncdKPTTLDFYNF7330-19-32 09:10:0029.8[facility] JxfhydaBBPERRMYAO4320-98-53 09:10:005.3[facility] GrpictpEFJBAEHUBU7106-69-15 09:10:003.2[facility] PISCZEIWPQ3492-66-39 09:10:0061.4[facility] LmknvwuIYPFRIYHBN5828-61-76 09:10:00 3.0[facility] JfxqlhqZJYCXDNDRY7727-14-63 09:10:001.4[facility]annHEMATOLOGY 2015-04-21 09:10:000.3[facility] GbbeqwxRSFPTCCSBC2834-44-35 09:10:000.0[facility] UohjfgrNGXOXTLUEE7896-33-28 09:10:000.3[facility] TstvkxxBIGRXJLJMZ9181-50-65 09:10:000.2[facility] OebxfzjZRVNLO0687-59-32 09:10:002.04[facility] HermannLIPIDS 2015-04-21 09:10:0014[facility] MlckmdgCQDELY7563-52-56 09:10:0033[facility] AONFBH4997-84-19 09:10:0092[facility] LqnbjgoTBPLES6405-93-06 09:10:0045[facility] LshthdgRIBCUT3144-60-98 09:10:0070[facility]annSPECIAL WBPTLCSFM0311-63-31 09:10:005.7[facility]annCARDIAC ISTQTLT2699-57-47 22:04:0066[facility] CHEM MEBNW6121-62-15 22:04:0038[facility]annCHEM RIKZS6334-83-93 22:04:0020 [facility]annCHEM NEZXT5994-00-04 22:04:77394Uqzvgqwu HermannCHEM PANEL 2015-02-02 22:04:0016[facility]annCHEM WWHRA8833-85-26 22:04:000.7[facility]annCHEM SEFZO0017-08-40 22:04:003.4[facility]annCHEM IPKZN7173-31-37 22:04:46027Owncthdg HermannCHEM IPHMX6548-04-01 22:04:003.4[facility]annCHEM MYEXK6730-68-26 22:04:008.3[facility]annCHEM RYYOT2710-38-17 22:04:0025 [facility]annCHEM YTYMJ6755-66-10 22:04:008.7[facility]annCHEM PANEL 2015-02-02 22:04:0013[facility]annCHEM EZHFM7339-49-36 22:04:00145Gczliagz HermannCHEM MGSHY5867-25-05 22:04:001.9[facility] HermannCHEM CBDYI2387-02-04 22:04:54852Oifjspyj HermannCHEM XVDMF1213-92-91 22:04:000.7[facility] HermannCHEM EOHUO8428-04-14 22:04:007[facility]annCHEM PQSKY9422-29-75 22:04:004.9 [facility]annCHEM QKYRP7220-58-48 22:04:0010.4[facility]annHEMATOLOGY 2015-02-02 22:04:0016.8[facility] MmrzkgcCDVQLZXNHN4466-36-99 22:04:22277Pfaplqoj VvwjjmbXUHRPDKDSB8831-94-45 22:04:008.2[facility] LchwymxFVHLJZBWYO6824-09-42 22:04:005.1[facility] ZiredhhGPKYIAEJEI3534-31-66 22:04:0011.3[facility] BCSWVFQUTO2372-11-55 22:04:0036.3[facility] OjexgzbPSISILQAKR5770-55-02 22:04:00 31.2[facility] LflrzvvWHURKTIQVQ3318-86-08 22:04:004.04[facility]annHEMATOLOGY 2015-02-02 22:04:0089.8[facility] GbsjxvzUTHXFFVPIZ4962-20-84 22:04:00 Test Item Value Reference Range Interpretation Comments MCH (test code = MCH) 28.0 pg 27.0-31.0 [facility] FxacgvcNPMKNBKEKX6195-45-56 22:04:003.3[facility] HermannHEMATOLOGY 2015-02-02 22:04:000.6[facility] ZucybfxNUDGIENSJO5234-59-26 22:04:000.4[facility] NhakrinCJCDOVEBBM5882-37-45 22:04:000.0[facility] CpsyajsMUDXAFSFLJ8084-39-77 22:04:0065.9[facility] MwwvmbnXEAQCKFNQC5018-61-43 22:04:003.3[facility] IUFGMIFQOF7614-66-27 22:04:007.0[facility] FnzehtgTXHIXHCDUY1970-81-25 22:04:001.2 [facility] LzlcmllULWGWPZZWM5072-11-49 22:04:000.2[facility]annHEMATOLOGY 2015-02-02 22:04:0023.2[facility]annCARDIAC DVGWIVT7969-39-09 03:14:22799 [facility] EhmhzxeOQUAPBEQZG4018-24-29 03:14:001.01[facility]annHEMATOLOGY 2014-07-07 03:14:00 Test Item Value Reference Range Interpretation Comments PTT (test code = PTT) 27.2 s 22.9-35.8 [facility] BohdygaHHPUXGMCNE0924-82-74 03:14:00 Test Item Value Reference Range Interpretation Comments PT (test code = PT) 13.3 s 12.0-14.7 [facility]annCARDIAC BXBSRCH8880-83-34 02:57:000.8[facility]annCARDIAC DRUZNDU0481-83-80 02:57:82001Rqdvxucc HermannCARDIAC XYIIBPZ8753-22-13 02:57:00 1.0[facility]annCARDIAC YCEHJZT2191-24-11 02:57:000.28[facility]annCHEM TLAET8098-57-00 02:57:0034[facility]annCHEM KQPNQ6581-68-66 02:57:98406 [facility]annCHEM EFOMO7105-27-33 02:57:0030[facility]annCHEM PANEL 2014-07-07 02:57:0077[facility]annCHEM JGWCG7548-79-53 02:57:003.7[facility]annCHEM UIQKL9127-95-23 02:57:0018[facility]annCHEM XDMPW5024-78-33 02:57:0018[facility]annCHEM HYKCF4938-69-40 02:57:008.5[facility]annCHEM ODBWE1367-05-22 02:57:008.0[facility]annCHEM XSORC4082-75-88 02:57:0010.1 [facility]annCHEM ZGOHH1132-42-57 02:57:000.4[facility]annCHEM PANEL 2014-07-07 02:57:004.3[facility] HermannCHEM AOQBZ7008-63-35 02:57:0021[facility]annCHEM IBWDX9709-03-00 02:57:000.9[facility] HermannCHEM HRDBI6354-06-25 02:57:44568Kikvkxtz HermannCHEM SGEHP4216-71-26 02:57:0044[facility] HermannCHEM EGWMV6352-73-65 02:57:13032Tguwncpu HermannCHEM LSXID6687-29-26 02:57:002.1 [facility]CHEM YULAY8752-78-20 02:57:004.1[facility]annHEMATOLOGY 2014-07-07 02:42:000.4[facility] RepzfjxYOVBCDBZYF9015-03-61 02:42:000.2[facility] DnygtspUWDLMDMUEQ0632-60-00 02:42:000.0[facility] GuqfirpUGYAQDAFIB5255-79-94 02:42:006.4[facility] OvugpajXOMHLKZTSF3776-36-39 02:42:002.6[facility] ZFVIGFLFBA1995-98-39 02:42:000.3[facility] FctluzfJHJHSYPLHS5127-86-62 02:42:004.5 [facility] EzgjskeVOGPEYUCPX3321-56-54 02:42:001.5[facility]annHEMATOLOGY 2014-07-07 02:42:0068.3[facility] ZwjiiqdZDGUQYDTAK0347-63-82 02:42:0022.4[facility] SwtdfkcFJKWAGCZPX4293-79-15 02:42:0033.7[facility] FylqnemWBEULYUTAR0186-96-54 02:42:0035.8[facility] XkksqctZLLOPRGEEP5221-37-13 02:42:0080.3[facility] VAUBHOXJXL3508-09-98 02:42:00 Test Item Value Reference Range Interpretation Comments MCH (test code = MCH) 28.7 pg 27.0-31.0 [facility] HycjqxiICYBKEWAFS1397-39-32 02:42:33464Puibfwai HermannHEMATOLOGY 2014-07-07 02:42:0010.1[facility] NeeaauuQHMMQVUPVH3408-21-17 02:42:0018.6[facility] QrfbvflJFUPDUVYPM1336-88-46 02:42:004.19[facility] RytfjjwWRGEMYGKRI9795-64-79 02:42:0012.0[facility] XnrbbzmWHSHXSZXFB3585-43-77 02:42:006.5[facility]annCHEM CNRAA1905-82-44 12:54:0034[facility]annCHEM TXBRU4854-31-66 12:54:0024 [facility]annCHEM MNLCQ8550-58-38 12:54:12753Ztscwluv HermannCHEM PANEL 2014-04-02 12:54:004.2[facility]annCHEM CCVCK8263-17-74 12:54:001.24[facility]annCHEM EFSHZ4996-19-86 12:54:08939Nzmhzcfd HermannCHEM RBXBP8165-51-86 12:54:002.1[facility]annCHEM OCRCF6110-97-42 12:54:0011.2[facility]annCHEM FZBPR8877-72-76 12:54:0028[facility]annCHEM FIMJO7176-55-62 12:54:34926 [facility]annCHE[facility] OVXGU3054-47-56 12:54:0021.0[facility]annCHEM PANEL 2014-04-02 12:54:0033.0[facility]BL[facility] B[facility] QEXOSAS1107-27-58 17:25:00 Negative (03/30/14 11:25 AM)[facility] XBPCKOV1306-83-83 17:25:00Product available (03/30/14 11:25 AM)[facility]annELECTROLYTES 2014-03-30 17:25:0010.7[facility] VctzdhoOWUFKHVIPPYH8802-44-18 17:25:0034[facility] NndxdhcBWLQDMINAGRN0519-28-17 17:25:74374Qkaghosp SroyoukROQCQFFHHOHB7278-51-62 17:25:002.1[facility] UrwgqjkSIIMPMWLRBZE9098-54-07 17:25:0034[facility] EXCEQBTFAQMD7399-20-06 17:25:003.7[facility] HpqmubkANTYCUKWFCAI4287-19-11 17:25:0030[facility] CmkddqhIRTBBVPVDYXM9260-50-23 17:25:48232Dabzhydh [place] BQEDUCOMGTAR5889-36-64 17:25:008.6[facility] PkqnielTCEVSHNSHHEA1602-44-16 17:25:0088[facility] UolcjfpYDOUWHCQBM4381-97-13 17:25:00 Test Item Value Reference Range Interpretation Comments PTT (test code = PTT) 27.7 s 22.9-35.8 [facility] QgtqcfgIKYVCPLEUH2382-15-46 17:25:003.57[facility]annHEMATOLOGY 2014-03-30 17:25:004.9[facility] EqavptfBXZHFYCPUX4364-50-57 17:25:0030.9[facility] RyfyyrmYNKMUFMJHD3727-64-56 17:25:0010.1[facility] OdbjweiOXCXOXAWYM3945-65-37 17:25:00 Test Item Value Reference Range Interpretation Comments MCH (test code = MCH) 28.2 pg 27.0-31.0 [facility] NaeuvxtKBTPNOJVHE3503-55-77 17:25:0086.5[facility]annHEMATOLOGY 2014-03-30 17:25:0032.6[facility] TirqgysKDWQGYJIKT7161-05-47 17:25:0018.3[facility] GjvsuslWJWEKIONSL7909-71-64 17:25:009.1[facility] RhfshuxCASFPHGSPV0582-29-42 17:25:57489Rjpkllsz GfqiwomEBEWYTOHBU2482-45-50 17:25:003.5[facility] QQULTYQHUW8565-71-88 17:25:005.1[facility] TymiudbXLTELOZHZC9902-12-92 17:25:001.2 [facility] TptlbwyAOIEISXEIU4852-95-48 17:25:003.3[facility]annHEMATOLOGY 2014-03-30 17:25:000.2[facility] XnjpvemEVWGIYMOWJ4174-51-93 17:25:0023.7[facility] KoxznqzESGWINSBEI7246-97-16 17:25:0067.4[facility] FmndjzlREEMJUVKGF0457-31-05 17:25:000.3[facility] OeqdcfjJRREVFYCMQ3222-71-39 17:25:000.3[facility] TKRCRORTXD9937-54-84 17:25:000.0[facility] MagmmztSOEUICVUZX2263-13-32 17:25:00 Normal (03/30/14 11:25 AM)[facility] OfxvghvXGBUFOZSKW0534-10-48 17:25:00Normal (03/30/14 11:25 AM)[facility] FersihbQBONANIGPG4187-05-51 17:25:001.08[facility] TwebgjnOCBRIAQFUZ8789-68-02 17:25:00 Test Item Value Reference Range Interpretation Comments PT (test code = PT) 14.1 s 12.0-14.7 [facility] LnpgzdlRBUVDTXXIJOH9305-37-70 10:15:0010.4[facility] HermannELECTROLYTES 2014-03-05 10:15:0038[facility] WszztrsISUZHXBRXMTH7882-24-09 10:15:0031[facility] JddufqjXOJRGQNSSHQW4861-36-06 10:15:008.4[facility] KwejoaeQSFQARYXWJGD5701-98-90 10:15:20592Yydikokr BpowigdCSOHDXYXLDFZ1286-04-21 10:15:003.4[facility] CZBOGOWAQRGB2609-01-52 10:15:61972Foolgvlf ErjfrezLJTYSVUFXQAX2863-54-04 10:15:0013[facility] TlrgbzlHILPOVTGDLJB7196-17-60 10:15:001.9[facility] FSEUWCSTPKMX3959-08-40 10:15:0080[facility] SoofseuNZXRHWWVMN8136-71-72 10:15:00 6.9[facility] BcaazgjFLYXTUSSHH2649-18-40 10:15:000.8[facility] HermannHEMATOLOGY 2014-03-05 10:15:003.8[facility] KfrvfatRAJQJTAIJC8761-96-88 10:15:000.4[facility] UihigdnVPLIHAGAGG9555-29-97 10:15:000.2[facility] VimlufkFRGNFNCIFI7566-40-67 10:15:0023.4[facility] JibbrnqLMIEXUWIOA4203-12-44 10:15:0065.1[facility] PYZNGFIGCW0023-76-38 10:15:001.3[facility] MgdlwjiGSJXHFKZHW9732-23-40 10:15:003.7 [facility] SyjqqvsYFRGFXNBOS2946-12-69 10:15:0032.3[facility] HermannHEMATOLOGY 2014-03-05 10:15:0016.7[facility] JfvybdsSLCUPHXORL9785-39-80 10:15:0093[facility] DevlieuFBZCRYXTNN7580-78-92 10:15:009.2[facility] IdhbwkqQIJLDBGSBZ0649-78-58 10:15:00 Test Item Value Reference Range Interpretation Comments MCH (test code = MCH) 29.2 pg 27.0-31.0 [facility] IgixugwJFVFPBDLDQ7336-87-95 10:15:005.7[facility] HermannHEMATOLOGY 2014-03-05 10:15:0090.6[facility] XghypefTMSMBCUYIC2501-87-80 10:15:0034.5[facility] PdgevkmFXPKATGXTV7578-71-69 10:15:003.81[facility] DknhiqgHRUJGRXZSL5194-39-95 10:15:0011.1[facility] TyazuqbHQIWBAZVYI8626-81-01 19:39:00<0.2[facility] OEEEIVGNMH5603-34-03 19:39:00<0.2[facility] WapeujyYDEQGNBVPE2239-85-61 19:39:00Negative (03/04/14 2:39 PM)[facility] SkgweppTZNNBUYMBJ2948-47-51 19:39:00 <0.2[facility] TduwjjkHQOIJBXDLC8825-41-67 19:39:00<0.2[facility] URBVRINCWF6319-87-71 19:39:001:40 *ABN*(03/04/14 2:39 PM)[facility] WBLWODLCGK7493-71-23 19:39:00<10[facility] AnvliceDZLSJSZGWS5400-88-42 19:39:00 Positive *ABN*(03/04/14 2:39 PM)[facility]annSPECIAL CFQQJQBNO5291-99-23 19:39:0019[facility] HermannTHYROID VRUVR9315-57-33 19:39:004.580[facility] CHEM WQEHH8399-32-03 10:10:0044[facility] HermannCHEM ELXJB0620-23-06 10:10:008.3 [facility]annCHEM JJFQQ2530-21-56 10:10:60764Astwgtne HermannCHEM PANEL 2014-03-04 10:10:003.5[facility] HermannCHEM IRXQM3254-85-89 10:10:02093Xltohjfs HermannCHEM OXGCP6366-25-95 10:10:0029[facility]annCHEM BRTEZ6475-10-63 10:10:001.7[facility] HermannCHEM TYWKP2061-29-39 10:10:0012[facility] HermannCHEM ZMAMN7686-53-47 10:10:0084[facility]annCHEM WKZWY4940-25-64 10:10:0010.5 [facility] LzyklguHUVABADPMG8123-45-59 10:10:001.4[facility] HermannHEMATOLOGY 2014-03-04 10:10:004.3[facility] BjslnynFVYJTNDBBH0190-84-78 10:10:000.7[facility] QxulwovUFBUPWXFKN6223-81-99 10:10:004.0[facility] VfgptehRARMWTGNGM3400-69-36 10:10:000.3[facility] HfatpweLHVIXSSHJH8138-74-54 10:10:000.4[facility] HOYUTFQPPD5166-78-53 10:10:005.7[facility] InwhzgmSZQLUVJJDE1617-23-83 10:10:00 22.2[facility] UdgwhckAPUMCJVCSK0645-76-98 10:10:0067.4[facility] HermannHEMATOLOGY 2014-03-04 10:10:0010.4[facility] YwvzulfNYFUQXEUPF2493-45-24 10:10:003.50[facility] MructbvEUPGQNIDUJ8660-52-44 10:10:006.3[facility] RjzjepdMLMWACVFMG3601-73-92 10:10:0032.9[facility] PtqzanrWYVYUFHENH7995-96-95 10:10:0083[facility] JZOKVKBWER6603-37-68 10:10:0016.4[facility] AlvlaetFNSPFHWTGZ0986-42-44 10:10:00 8.8[facility] NjqnrkiEHDYLIAUKI2084-81-74 10:10:00 Test Item Value Reference Range Interpretation Comments MCH (test code = MCH) 29.5 pg 27.0-31.0 [facility] XevaurnFIODWWWXTB4491-31-86 10:10:0089.7[facility] HermannHEMATOLOGY 2014-03-04 10:10:0031.4[facility] HermannCHEM TVKXM8873-02-06 11:05:0044[facility] HermannCHEM LOKWO1459-20-57 11:05:0030[facility]annCHEM EWNBK4832-85-62 11:05:008.5[facility] HermannCHEM LIZCL4755-25-96 11:05:001.7[facility] HermannCHEM WHBGW8634-58-98 11:05:0013[facility]annCHEM MCJCZ2892-35-20 11:05:0090 [facility]annCHEM ACLQH1208-56-14 11:05:58546Hryxpscy HermannCHEM PANEL 2014-03-03 11:05:003.6[facility] HermannCHEM NIRUW6045-86-69 11:05:42710Pqnbzxsw HermannCHEM SYTLW0622-44-20 11:05:0010.6[facility] OgfvlwwSSJZFYTCQA6038-13-81 11:05:009.3[facility] GclfhiyNWPCSEMRCA3318-95-60 11:05:003.54[facility] VCSZIOPBSB5286-82-61 11:05:006.2[facility] WaydqwdSBBHNUVKCP6602-99-27 11:05:00 10.4[facility] RjqfhhmJIMXTTZRDI3785-12-54 11:05:0032.0[facility] HermannHEMATOLOGY 2014-03-03 11:05:0090.5[facility] YgfocsdEOXOAGRDHT2570-58-74 11:05:00 Test Item Value Reference Range Interpretation Comments MCH (test code = MCH) 29.4 pg 27.0-31.0 [facility] YczzlkfXFFPYYXUIG9662-88-07 11:05:0017.2[facility] HermannHEMATOLOGY 2014-03-03 11:05:0032.5[facility] KngaodlHKQGTVBGUM6508-53-87 11:05:51125Acfvzdwq WlptustOZCKZQRVXW6453-26-20 11:05:000.0[facility] TspcjreDPVLVGJYGB7721-36-33 11:05:000.3[facility] IbrsysyHOZNLJRFWV0425-65-53 11:05:001.3[facility] QRLQYYFNQL9014-26-39 11:05:004.2[facility] RautlfeGMPQZNEPMJ2630-53-00 11:05:000.3 [facility] BecgehxNOWXPMEUSE3867-07-89 11:05:000.3[facility] HermannHEMATOLOGY 2014-03-03 11:05:005.4[facility] TpedjehRJJGLJKSMH5972-29-52 11:05:005.2[facility] XlvlkipBICZSZLELD1917-55-53 11:05:0020.6[facility] QvnubxrZFZNAGZIGJ6905-98-41 11:05:0068.5[facility] VmhpfmxSNPAFRDSOW4948-06-36 12:19:000.0[facility] ANEMIA DSAMS3682-23-19 10:35:52829Lxzglqqc HermannANEMIA NCKDJ7589-63-18 10:35:0044Mem[facility] HermannANEMIA IORCS3981-09-04 10:35:85643Mvvhuxxq Noel ANEMIA KXBRZ7290-24-56 10:35:0017Mem[facility] HermannANEMIA ZKHCV1463-64-38 10:35:00 89[facility] HermannCARDIAC WNEITQW0108-75-82 10:35:17423Lzzwuglw HermannCHEM NKLGD1942-75-34 10:35:002.0[facility] HermannCHEM UHEFZ1294-26-40 10:10:001.7 [facility] LvgkmyiVCSUWNJGQF2766-63-58 10:10:000.0[facility] HermannCHEM PANEL 2014-02-27 09:30:001.4[facility] LbpmwcgBJDGWJ3359-33-98 09:30:001.89[facility] KvqkqodCUQEVZ4781-98-14 09:30:0023[facility] CmtepniZFKNFB1246-40-14 09:30:0037 [facility] JiqhfqbTYBLJE1875-73-58 09:30:0070[facility] YseupdpKHOVLX5989-44-39 09:30:0050[facility] GregrohBOQMHP1334-39-51 09:30:0010[facility] HermannVIRAL - HLIMROGS7229-26-05 23:00:46Negative 12(02/26/14 6:00 PM)[facility] HermannVIRAL - RZCTVIAR8027-48-69 23:00:46Negative (02/26/14 6:00 PM)[facility] HermannBACTERIAL - BKIPPXPT7245-82-77 22:25:00Negative (02/26/14 5:25 PM)[facility] HermannCARDIAC OOWXPIO4345-59-72 18:30:000.46[facility] HermannCARDIAC NCNLSAM8421-81-32 18:30:00 74[facility]annCARDIAC IUQYJCY0126-95-05 08:15:000.37[facility]annCARDIAC UFXDCGR9561-34-50 08:15:96586Jmsanzth HermannCARDIAC LADWQQN5231-71-88 08:15:00 1.6[facility]annCARDIAC BHUAVUV1609-70-26 08:15:001.6[facility] HermannCHEM QVZCR3366-24-68 08:15:000.9[facility] HermannCHEM QVTJY9026-82-85 08:15:009 [facility]annCHEM HBWWJ8948-15-95 08:15:003.7[facility] HermannCHEM PANEL 2014-02-26 08:15:0013[facility]annCHEM CJAUV2387-40-14 08:15:0020[facility]annCHEM NYTRO0866-38-81 08:15:0070[facility]annCHEM HUPFS6106-87-25 08:15:000.8[facility]annCHEM TTQNF8025-74-20 08:15:006.9[facility]annCHEM ALQRU4526-45-99 08:15:003.2[facility] HermannCARDIAC SRGZULB4342-40-60 02:31:20923 [facility]UR[facility] AND VLALD4241-49-11 02:10:00None Seen (02/25/14 9:10 PM) [facility] CXANL2397-96-28 02:10:00None Seen (02/25/14 9:10 PM) [facility] TLWJW2837-64-02 02:10:00Yellow *NA*(02/25/14 9:10 PM) [facility] CZAGD5864-92-96 02:10:00Negative (02/25/14 9:10 PM) [facility] DPWDS5292-88-88 02:10:00Negative (02/25/14 9:10 PM) [facility] DRBHG7983-76-59 02:10:00Negative (02/25/14 9:10 PM) [facility] BSXJD1941-92-86 02:10:00Negative *NA*(02/25/14 9:10 PM)[facility] MHKTT3789-51-67 02:10:00Negative *NA*(02/25/14 9:10 PM)[facility] OJXBR7001-69-00 02:10:00Small *ABN*(02/25/14 9:10 PM)[facility] IEBWU8507-73-47 02:10:000.2[facility]UR[facility] AND ZCICY2772-99-61 02:10:00Clear (02/25/14 9:10 PM)[facility] AND VQGDW8613-20-87 02:10:00 Test Item Value Reference Range Interpretation Comments UA Spec Grav (test code = UA Spec 1.015 1 Grav) [facility] VWJLY0641-05-30 02:10:00 Test Item Value Reference Range Interpretation Comments UA pH (test code = UA pH) 5.5 1 5.0-8.0 [facility] ORUSW3070-84-42 02:10:00Negative (02/25/14 9:10 PM) [facility]annCARDIAC PZKSTAQ5707-34-92 00:50:001.9[facility]annCARDIAC PNCSAER6819-86-78 00:50:000.38[facility]annCARDIAC TZMSZWJ5656-99-83 00:50:00 100[facility]annCARDIAC NGLAUOT0783-53-83 00:50:001.9[facility]annCHEM WNOMF4199-03-42 00:50:007.4[facility]annCHEM CYQAI0593-21-54 00:50:000.6 [facility]annCHEM QXVPS1260-89-78 00:50:0077[facility]annCHEM PANEL 2014-02-26 00:50:0013[facility]annCHEM XIQMM4152-56-18 00:50:0015[facility]annCHEM UJPJX4791-56-88 00:50:003.2[facility]annCHEM XRWNT4130-06-59 00:50:004.2[facility]annCHEM GHGYX6266-72-42 00:50:000.8[facility]annCHEM ZWLNW6582-67-31 00:50:009[facility] AjvlwdhNPFPIKLFHA4037-35-57 00:50:000.81 [facility] FwmjrraSSJZOMXKME0491-99-75 00:50:00 Test Item Value Reference Range Interpretation Comments PTT (test code = PTT) 42.2 s 22.9-35.8 [facility] JpcmcxaNEMYPXTBNV8279-15-28 00:50:001.36[facility]annHEMATOLOGY 2014-02-26 00:50:00 Test Item Value Reference Range Interpretation Comments PT (test code = PT) 16.9 s 12.0-14.7 [facility]annCHEM HHEHM1013-64-72 10:30:0038[facility]annCHEM PANEL 2014-01-28 10:30:008.6[facility] HermannCHEM QOLGI7605-42-84 10:30:0013.1[facility] HermannCHEM WRMCA8256-96-46 10:30:0028[facility]annCHEM MISHS9715-48-14 10:30:0024[facility]annCHEM INDRO2145-14-20 10:30:0099[facility]annCHEM ACCFP9110-43-81 10:30:14833Vkwjewrr HermannCHEM EPTJT0204-10-24 10:30:004.1 [facility]annCHEM YYXMN6911-01-88 10:30:22213Kdxjcuhf HermannCHEM PANEL 2014-01-28 10:30:001.7[facility] HermannCHEM OITAQ9724-28-11 10:30:002.1[facility] HermannCHEM DHSYA2188-74-19 10:30:002.6[facility] VkxtfijQPNSESWRHO3168-37-26 10:30:005.0[facility] JjghzwzXTLVRDCUKH3649-09-81 10:30:000.4[facility] KLVCUBTKOG1693-81-78 10:30:000.1[facility] XfewofxGXWDEUJUON3825-39-97 10:30:000.5 [facility] MgbvnvaQPDJDCRMMW3363-82-01 10:30:001.8[facility] HermannHEMATOLOGY 2014-01-28 10:30:0024.7[facility] JvbfvpsXMWDARIQGF8754-27-15 10:30:0066.4[facility] QbbbyeeXPFLJCWLJJ9978-43-60 10:30:001.7[facility] YiycbptJZVQSXOQDW1378-06-19 10:30:006.8[facility] VxfnpwxQUFQLLLFRV1778-01-56 10:30:0010.3[facility] WVKSHYDJED1573-34-49 10:30:0079[facility] DamvcfsIHYEIOOSEW2584-75-82 10:30:0011.3 [facility] IbrmnikBSHDXNZXUU5649-32-46 10:30:007.5[facility] HermannHEMATOLOGY 2014-01-28 10:30:003.84[facility] XlhxpkiVYSMZEQKQS5528-32-07 10:30:0014.1[facility] QjfwuvcZSOYVTJKYB5473-31-40 10:30:0034.2[facility] TvhlnmtLPWCVWIDYF7901-14-11 10:30:0089.0[facility] NdktzizBDIWYLUZEH2276-54-06 10:30:00 Test Item Value Reference Range Interpretation Comments MCH (test code = MCH) 29.3 pg 27.0-31.0 [facility] MtvwhfuLZXPLNROEI1526-40-04 10:30:0032.9[facility] HermannCHEM PANEL 2014-01-27 19:10:002.0[facility] HermannCHEM XKFYQ6934-52-92 19:10:0035[facility] HermannCHEM ICDNE5893-01-80 19:10:008.3[facility] HermannCHEM OPVGU6478-04-92 19:10:0029[facility] HermannCHEM SKYEQ3863-03-42 19:10:008.3[facility] HermannCHEM ODZMB4200-15-77 19:10:29664Dakywskg HermannCHEM ERXTF1384-86-96 19:10:004.3 [facility]annCHEM FNPCY8761-96-92 19:10:50941Wrgcqsla HermannCHEM PANEL 2014-01-27 19:10:0026[facility] HermannCHEM NRKOB0961-24-91 19:10:001.8[facility] HermannCHEM LRMWD8184-41-66 19:10:07824Oollukra HermannCHEM LJELI9305-81-66 10:00:001.5[facility] KvxhtneGCQGMHKSBWIR4555-71-93 10:00:0011.4[facility] BORYOPUSACYQ7362-06-78 10:00:0035[facility] AttyundFBGGSCBPAQUX3261-06-47 10:00:00 104[facility] MkbdzbtZYRZOXNQAYPG2197-18-20 10:00:004.4[facility] WXTKTPCYKUOA9046-96-09 10:00:45803Mtlbdwhw WjduttmBVGUVOFHMXZC1259-02-40 10:00:001.8[facility] VseuwujQCGOYGSOQLAP8591-79-03 10:00:008.6[facility] RFVHIVIIQNVS4229-82-57 10:00:0028[facility] KbnbyntEUUBAZVSCMAF2083-54-22 10:00:00 26[facility] NoxuxwuTCDDPAWZURKO2975-41-30 10:00:19784Ohssdmpc HermannHEMATOLOGY 2014-01-27 10:00:00 Test Item Value Reference Range Interpretation Comments MCH (test code = MCH) 28.8 pg 27.0-31.0 [facility] LjlfvtgLZUVXSDMJB4225-93-42 10:00:0032.0[facility] HermannHEMATOLOGY 2014-01-27 10:00:0014.2[facility] TsqafrkZRYHQUFZSD1467-18-78 10:00:009.8[facility] MuztszbUQEOZDIETQ8389-03-70 10:00:0071[facility] AfwrpvlYXSEUKMSEU4907-69-13 10:00:004.06[facility] LogyddvLKOLWQEPLR4286-05-48 10:00:006.2[facility] FUYTJXLRAB0825-93-86 10:00:0036.5[facility] OlvgofoFKYNGAOHEP6941-11-13 10:00:00 90.0[facility] IyycrmmEPKTZWWEFO9937-32-32 10:00:0011.7[facility] HermannHEMATOLOGY 2014-01-27 10:00:001.6[facility] TzmhlrqXYEVDBCCSP6854-15-93 10:00:004.2[facility] AerdaqxIVLPASXIVU2287-22-46 10:00:000.3[facility] JslyxfwCHKASEPFQO5884-45-65 10:00:000.1[facility] PreviaiZRIJGFANHK1930-36-62 10:00:000.2[facility] IAJVOQJKCL1051-06-50 10:00:000.0[facility] PpexeaqVLUJLBTKEN9257-88-90 10:00:00 26.0[facility] IdgkxvtLAEEFOQIFI0723-80-70 10:00:0068.2[facility] HermannHEMATOLOGY 2014-01-27 10:00:001.5[facility] CkngzvzABBIWMGAAV9606-15-11 10:00:004.0[facility] JutwqfxZDIEEU3886-30-14 10:00:003.36[facility] NdkcrbeILYIZY0189-94-26 10:00:0023 [facility] QsjncnmESSIXP9647-63-01 10:00:0069[facility] CejjudgWFMHYS9264-67-71 10:00:0039[facility] WsdyujoPTHXRS5524-06-99 10:00:57485Aixuledj HermannLIPIDS 2014-01-27 10:00:10739Boosiwwq FvdfbjkRVAKCXIMIC6622-81-83 10:00:001.2[facility]annUR[facility] AND NUPMH7583-28-36 14:15:00<=1.0[facility] STOOL 2014-01-26 14:15:00<1[facility] JLTRX8943-66-08 14:15:001.005 [facility] DNBDP0481-53-63 14:15:00Clear (01/26/14 9:15 AM) [facility] QQMQG2932-93-00 14:15:00Colorless *NA*(01/26/14 9:15 AM)[facility] QATLY1417-08-87 14:15:007.0[facility] LIQRF2919-21-71 14:15:00Negative (01/26/14 9:15 AM)[facility] QHBHS2489-91-18 14:15:00Negative (01/26/14 9:15 AM)[facility] HRAZX7897-12-17 14:15:00Negative *NA*(01/26/14 9:15 AM)[facility] XNZSD5008-71-57 14:15:00Negative (01/26/14 9:15 AM)[facility] HermannANEMIA STUDY 2014-01-26 14:00:0010.9[facility] HermannANEMIA VLCNF0087-34-63 14:00:64680 [facility]annCARDIAC EJQIQUC3098-08-72 14:00:38895Vuohpcde HermannCARDIAC IXHOCHC2685-10-56 14:00:000.28[facility] HermannCARDIAC CJGGGLD4220-80-42 14:00:00 88[facility]annCARDIAC GHIETEL0228-82-16 14:00:003.0[facility]annCARDIAC EPGUHJO6120-99-92 14:00:002.6[facility] HermannCHEM WQUKG8435-14-83 14:00:002.6 [facility]annCHEM HIXOU6964-59-51 14:00:000.5[facility] HermannCHEM PANEL 2014-01-26 14:00:000.9[facility] HermannCHEM LKLYP6147-99-86 14:00:004.1[facility] HermannCHEM MBFJB0319-83-51 14:00:000.7[facility] HermannCHEM KQVKA5365-14-59 14:00:000.2[facility] HermannCHEM PXDCK5341-90-46 14:00:0015[facility] HermannCHEM KTIIB8482-82-68 14:00:0078[facility]annCHEM PRDMS2728-41-96 14:00:007.6 [facility]annCHEM HPMTI9567-07-42 14:00:003.5[facility] HermannCHEM PANEL 2014-01-26 14:00:0017[facility] FodcuiuOLTEZNBOXB6390-64-33 14:00:0084[facility] WdbxmgaMOAZQRDAZM3052-61-90 14:00:009.8[facility] UndyfypVCNJXUVYSK0679-16-04 14:00:006.6[facility] EubktzcYBPPAPOWTA3329-61-86 14:00:00 Test Item Value Reference Range Interpretation Comments MCH (test code = MCH) 29.2 pg 27.0-31.0 [facility] NyxygkiGFZZEHDERS0696-48-66 14:00:0032.7[facility] HermannHEMATOLOGY 2014-01-26 14:00:0014.3[facility] TapevytLVQUEOAGYN0443-25-06 14:00:0089.2[facility] ZiezojuACBLBHSBGW7957-82-05 14:00:0013.2[facility] SaahrayCKRGYJAJSD1025-34-22 14:00:0040.4[facility] UvbcwvgRYEKOHWIPL5315-17-75 14:00:004.53[facility] IHEGJVUXZX4232-52-54 14:00:001.23[facility] AwusyblSGELOEUZYT7314-40-16 14:00:00 Test Item Value Reference Range Interpretation Comments PT (test code = PT) 15.6 s 12.0-14.7 [facility] VmnemwfGPVMKTIIEN3048-09-51 14:00:001.6[facility] HermannHEMATOLOGY 2014-01-26 14:00:004.6[facility] RyejvebRLAZWZXEJV6329-38-78 14:00:004.4[facility] BaknhewFCBFULIVMU1188-88-14 14:00:000.7[facility] LndpwhqGRMLLVFUHN4727-38-64 14:00:000.1[facility] QyjumgiROTWTXZKKM8150-78-38 14:00:001.8[facility] YTBTUKVCOQ1169-02-48 14:00:000.3[facility] GicuchcSWDOITKGZI3908-34-48 14:00:00 27.2[facility] MsygbsoOJCZQOHRTG9670-81-27 14:00:0065.9[facility] HermannTHYROID AEEJI5154-68-21 14:00:002.320[facility] JmzlqpsTUEQHRZTM0890-99-10 10:30:68586 [facility] WaxndupFRQZAANVA1613-07-15 10:30:0084[facility] HermannCHEMISTRY 2012-02-27 10:30:003.8[facility] JimfdrlMCONUVSOP6197-52-13 10:30:36376Rdmyxkvi UjgyugoFIHVRZARO4245-58-31 10:30:55731Hsgtbmhu PulhqpoASCCLKFKT2078-78-93 10:30:001.0[facility] IaqnvqmXOUJTTZWA8327-41-42 10:30:0017[facility] BAMGHVJRY1509-52-94 10:30:0084[facility] VrxxsbzBQYLWXJRJ7979-70-68 10:30:007.9 [facility] QwkwuzaTVZYMJYOU2766-59-75 10:30:0028[facility] HermannCHEMISTRY 2012-02-27 10:30:0015.8[facility] LuwfnveVFJCNKYYVE6365-93-86 10:30:008.3[facility] VaiiexdCTHFGWHFMP2008-13-22 10:30:003.1[facility] UwtcilpWFCMWKSUKF1281-70-52 10:30:0044.7[facility] ZmirsrxWBCUMWEDXC3886-88-79 10:30:0043.6[facility] DSPYINPXZL6169-36-33 10:30:00Normal (02/27/2012 05:30:00)[facility] FZYGEIWXAY6626-25-35 10:30:000.0[facility] KnftyddAXFVLBYKVA9895-78-82 10:30:000.1 [facility] DthnbseKTMCOWQMTQ0074-10-98 10:30:002.0[facility] HermannHEMATOLOGY 2012-02-27 10:30:000.4[facility] GttgpjiJQJCMBVRBY2331-97-41 10:30:000.3[facility] NhgvldkKSRMEUPFDB7162-64-76 10:30:002.0[facility] XgpsogpHFKQEAELJI5645-41-85 10:30:00Slight *ABN*(02/27/2012 05:30:00)[facility] VilbotwHLWGSHWRCI6370-32-72 10:30:009.9[facility] UzmqrflCQMEZZQNOS8457-65-73 10:30:00 Test Item Value Reference Range Interpretation Comments MCH (test code = MCH) 31.3 pg 27.0-31.0 H [facility] LbrjdpuLGGHVLEQIY3315-46-65 10:30:0033.7[facility] HermannHEMATOLOGY 2012-02-27 10:30:0014.8[facility] PulifffGXJVKPLEUX7618-20-15 10:30:0034[facility] JntvrqlYIEGKCLOMG1840-16-24 10:30:0092.9[facility] PmvouipCGZRBJEYEG6295-95-24 10:30:004.6[facility] FluuwkjNAKJALXBWL8556-38-86 10:30:003.40[facility] YPMYBOCHRN9016-97-10 10:30:0010.6[facility] GpjfouvNTQDRGFDLW3814-59-40 10:30:00 31.6[facility] CybzsunXVOGYELHA6159-85-61 21:40:56314Hwbokhwa HermannCHEMISTRY 2012-02-26 21:40:003.9[facility] SkvxvnvMUNILNQVB8847-50-21 21:40:0011.9[facility] WojkkbeDMPOGACZS6248-43-06 21:40:007.7[facility] ShsfwjgCDSBDVYLV9872-96-76 21:40:45867Rbopxudc NjinxooEUVHEPYAH3080-68-16 21:40:0068[facility] TBFEKPEXI7932-33-21 21:40:0026[facility] WesbgjtGTNUQSZBO7067-76-30 21:40:001.2 [facility] WpidsadIZNCTYUCO1862-80-84 21:40:98395Knllcmja HermannCHEMISTRY 2012-02-26 21:40:0099[facility] CdzobusTJLBWCUZB4205-65-90 21:40:0031[facility] TgfwdycFRZFXJLWP0810-89-42 13:56:80063Fgjxspcn JcjlagwJUXHXCUML2423-91-46 13:56:000.11[facility] HnapcorMPLPORNBP9802-24-65 13:56:001.5[facility] ZITUMBWHY8603-07-93 13:56:001.0[facility] TeukqezKXWLMHLKB2080-17-15 10:00:001.3 [facility] YfineeuZUVJQFAPH5570-48-86 10:00:003.2[facility] HermannCHEMISTRY 2012-02-26 10:00:000.8[facility] ZmazumfWLUJFOLOI8514-99-78 10:00:0012.5[facility] UiszdlqZARCEHAKL5628-48-54 10:00:0022[facility] HcossdkHDAVHZRLT3846-14-24 10:00:005.8[facility] VfirexrHVSUQQEQM4091-61-57 10:00:0020[facility] NBRTMYNMN5932-58-60 10:00:007.8[facility] HxrfhbmYAIXDKVXW7031-03-73 10:00:000.6 [facility] LxcnovdDWQMFPZBW5460-40-74 10:00:0030[facility] HermannCHEMISTRY 2012-02-26 10:00:0048[facility] JizkgsxUFNQNAJYA6862-54-43 10:00:0036[facility] PfijxcfSGDHFQDLF6971-50-84 10:00:0091[facility] UexuqisOGWHLREXP1780-13-96 10:00:002.6[facility] JjkkzgrQBSBHGUVQ9112-11-59 10:00:0033[facility] CZRZYINAP3653-78-72 10:00:0015[facility] ZtcygstZWOABIHHU7863-40-47 10:00:003.5 [facility] TuzwgdhNXEOHBKYT6013-06-45 10:00:0099[facility] HermannCHEMISTRY 2012-02-26 10:00:001.6[facility] ZefgxwzDMGQANNMR9759-84-95 10:00:05387Sqpjcjku XgikurpRTKQUFTUP3566-20-57 10:00:005.6[facility] SyznzvvEKDDGQSSJ1006-91-51 10:00:0041[facility] UulkbxkEVNQMVUPT9795-81-19 10:00:0039[facility] FGKBGOEWH9078-48-64 10:00:0092[facility] LbycakmDASIOJZXA2835-50-38 10:00:0098 [facility] EicpjovBECAVVKXV8729-29-59 10:00:002.51[facility] HermannCHEMISTRY 2012-02-26 10:00:13399Luojvpej ZmhboldFIZPYXVLR6827-12-20 10:00:000.10[facility] QfzrwibWGHGNCQQM3737-60-88 10:00:001.7[facility] AycxmqdUEOYJEKJM1157-38-26 06:15:000.4[facility] CygybtlKUULYUBUN6357-48-89 06:15:54586Atpgsfkk Noel JKZUXHLMY0354-58-52 06:15:0013[facility] UhefwohVYJLGRXAO4723-43-08 06:15:0042 [facility] BfyafbfLPAQYHNHQ4988-15-08 06:15:001.95[facility]annCHEMISTRY 2012-02-26 06:15:0082[facility] IkhiflxOMXVXYONA1707-46-62 06:15:09703Djaovspn FndtawsDAPNVWOTJ3819-24-36 06:15:000.09[facility] PrbqhljANEFSNRTV4491-22-49 06:15:001.1[facility] HermannBEDSIDE GLUCOSE UUAHUZV4842-50-17 16:28:49083Ojmotjxs HermannBEDSIDE GLUCOSE KSCIXNZ7630-25-55 11:12:65481Awcslizv HermannBEDSIDE GLUCOSE BCZBLVB1859-39-74 02:31:40753Ekzuxasx NekwidoNKCZSMMQF8447-31-94 07:08:0014.5[facility] XptgqydJHAOQYBXG5188-70-87 07:08:73803Galtbqpu [place] BDWJDELEB1581-12-38 07:08:001.3[facility] PzcegkoKETDSZHTX7432-85-34 07:08:0025 [facility] XqdcncdORASXBSRJ5410-59-48 07:08:42249Afomqomy HermannCHEMISTRY 2011-12-07 07:08:008.7[facility] NaafbqrPBXQARWFR4184-02-10 07:08:0031[facility] WscogutNRDPUXNNV2578-05-01 07:08:004.5[facility] RiviobwQSSJBFWQZ1467-00-55 07:08:10347Dnbjiaii XmumctrIRVSNENDDY1826-34-92 07:08:0013.2[facility] [place] QQHQQGCHSD1672-51-84 07:08:0031.9[facility] RxwglvfJVYIPWLYVD7133-94-63 07:08:00 3.40[facility] GnsgyygWHGHODQOHZ6195-05-54 07:08:0010.6[facility] HermannHEMATOLOGY 2011-12-07 07:08:0093.7[facility] UnrgzomQVOVPQLUYJ0425-68-03 07:08:00 Test Item Value Reference Range Interpretation Comments MCH (test code = MCH) 31.1 pg 27.0-31.0 H [facility] CvbuncqKIQLCLXRSF1959-28-57 07:08:49275Wbdxjdlo HermannHEMATOLOGY 2011-12-07 07:08:0033.2[facility] TpzhakhLTLHSKHOAU7626-20-55 07:08:0017.0[facility] GvkgyywKVCWLDSONY7264-46-66 07:08:009.4[facility] JpwhrodZRLZBYGXAH5818-71-10 07:08:000.8[facility] GttmergRYWMPHFPXG6819-41-28 07:08:000.0[facility] FAXESVENTT8460-12-51 07:08:000.8[facility] KdryvysTLYOOBBWDE0510-66-78 07:08:000.0 [facility] DcuwqluUPAPMUKMLF6026-79-38 07:08:0088.5[facility] HermannHEMATOLOGY 2011-12-07 07:08:005.7[facility] MwjbxhmLLXUHVPZLZ8936-89-87 07:08:005.8[facility] JuyxribGGTABPHECC4881-96-88 07:08:000.0[facility] UpqwfmdHACPVSVTNI8417-99-15 07:08:000.0[facility] DhnoptuNFFPWQPTQV0591-92-52 07:08:0011.7[facility] [place] ZEJPDTMCD6239-70-15 05:10:0014.0[facility] KvyxuhiOCRIDAESP9231-10-88 05:10:004.0 [facility] QhxosdsUXHIBDCPE0041-46-97 05:10:72427Yntwqupx HermannCHEMISTRY 2011-12-06 05:10:0028[facility] NamhwdhHUQKLDPFE1438-90-03 05:10:65162Efgptomc VfbzbrxEHJCXWJLB9686-92-27 05:10:008.1[facility] IjfaclnIJOKPRWUG4390-15-06 05:10:95484Kjttgjtb DpqiwqeHPEPRSYMF8337-43-33 05:10:0028[facility] [place] KUGAXUHSD2345-63-79 05:10:001.3[facility] YwkwhgfGODPWQCCQ9939-35-33 05:10:002.1 [facility] StmvhffFCDIJEGDD4151-26-04 05:10:003.4[facility] HermannCHEMISTRY 2011-12-06 05:10:004.68[facility] PuonuiiAMJHVRRJD7374-65-37 05:10:004.76[facility] ZpyiyxhFDETVILEQ6077-09-89 05:10:001.17[facility] WefznsxSXOBQRBUF9689-44-31 05:10:001.19[facility] DpybomtDHLIEDDBQH4594-99-42 05:10:009.4[facility] FGJENPMIKE8978-87-50 05:10:0030.9[facility] JthugrbVHROYPPCKO5339-68-13 05:10:00 10.4[facility] DxazdohXIHAOMHEKR3872-93-58 05:10:0093.8[facility] HermannHEMATOLOGY 2011-12-06 05:10:00 Test Item Value Reference Range Interpretation Comments MCH (test code = MCH) 31.5 pg 27.0-31.0 H [facility] DasrycuBHBUXPDCSM9670-90-22 05:10:53047Yyrntdro HermannHEMATOLOGY 2011-12-06 05:10:0033.5[facility] YhkdzpvGXNZVPGUJD9183-73-42 05:10:0016.1[facility] QbwfqopINHWANGQMU0474-44-00 05:10:0011.9[facility] JgnecooRCCRECOOBP5801-68-73 05:10:003.30[facility] ZjricljPJWYTDQYKV6466-31-33 05:10:005.5[facility] WUJXITLOZJ3375-50-23 05:10:005.8[facility] OezbjucCDFCOFCWSY3175-51-95 05:10:00 88.6[facility] HgbnnveJDBROAGTDN8259-72-55 05:10:000.0[facility] HermannHEMATOLOGY 2011-12-06 05:10:000.0[facility] BoegldxUOWYPPTWCZ3938-32-00 05:10:000.7[facility] NhskrtgVSCBMYZFWQ2626-65-95 05:10:000.1[facility] GwrntphOZNTUQPLSS6333-10-81 05:10:0010.5[facility] GyejwcwTCIBOMQKNS3452-94-59 05:10:000.0[facility] VUZMALLPBS2941-14-21 05:10:000.7[facility] PikclfxFUFNLTHRMB2139-61-25 02:02:25323 [facility] XbxnpznMEOLZLZTIV1792-92-66 14:11:00 Test Item Value Reference Range Interpretation Comments PTT (test code = PTT) 24.0 s 22.9-35.8 N [facility] IknuiduUTIWXPAHVD2712-41-18 14:11:00 Test Item Value Reference Range Interpretation Comments PT (test code = PT) 15.0 s 12.0-14.7 H [facility] WpgvcrzGBQKDLWDLS5428-16-71 14:11:001.18[facility] HermannBACTERIAL - YOQYCKNO0006-32-36 06:58:00Negative 1(12/05/2011 01:58:00)[facility] [place] ZZLGQJPTT6866-85-94 06:58:005.04[facility] FggmxwaHBPDMBHCN8269-61-58 06:58:005.00 [facility] UdkjskcJBOFACFJA6336-84-86 06:58:001.26[facility] HermannCHEMISTRY 2011-12-05 06:58:001.25[facility] OhyumblXTXHZTOTO9810-45-13 06:58:004.0[facility] JmubxxsFKDQSJFRE0085-58-76 06:58:001.9[facility] AecxnswXVKKVENFK2022-02-24 06:58:009.0[facility] AlueausOKMLOSQJD7154-51-28 06:58:0027[facility] [place] NABUSWXNG6029-05-53 06:58:31132Yzwsekxo WisehgaVZZNZDHLV8510-03-10 06:58:25703 [facility] GlynppjEHPAJUNTC9634-07-34 06:58:52608Ibsqzihw HermannCHEMISTRY 2011-12-05 06:58:001.4[facility] JrcuqkvJSRSGXGXR5607-01-84 06:58:004.1[facility] IuifvieVQXMYDQOK1730-53-36 06:58:0024[facility] BpeiztzLFPUDYKFD9589-77-81 06:58:0017.1[facility] TanjgtyELYFHLEMQX3934-09-52 06:58:000.0[facility] [place] EVTXDKDOJT4977-08-47 06:58:000.0[facility] BtjcasrIDUCAYYVLX8699-17-25 06:58:000.3 [facility] EbpflxrOMYONIJUXD6729-02-05 06:58:003.1[facility] HermannHEMATOLOGY 2011-12-05 06:58:000.7[facility] RxmnczwVTSNWESWIW6320-56-90 06:58:009.3[facility] FguxtulKLXLKHETNG3119-27-70 06:58:000.2[facility] HhghitiIFWCDGETQM6345-74-02 06:58:000.0[facility] WyulqvfSUQKKHTBJJ4346-59-90 06:58:006.5[facility] HOWOHSOAXN5300-98-66 06:58:0090.2[facility] PoqtnxsBGIQABZPHE1977-97-94 06:58:00 1.15[facility] NphbiqoLWTPZXDYDD9083-13-51 06:58:00 Test Item Value Reference Range Interpretation Comments PT (test code = PT) 14.7 s 12.0-14.7 N [facility] CenterWxqyyyvCFTFVPWVFX7353-13-48 06:58:00 Test Item Value Reference Range Interpretation Comments PTT (test code = PTT) 24.4 s 22.9-35.8 N [facility] CenterBabpnbaDRJOGDSPDG6905-93-91 06:58:0016.1[facility] HermannHEMATOLOGY 2011-12-05 06:58:0032.8[facility] XauvedaUQXXNDJZQB9502-65-92 06:58:0010.3[facility] HgudnvkJRCHMVKIOU2112-65-97 06:58:0094.1[facility] IbifqbxWTJVNDXFTC4591-18-83 06:58:0031.7[facility] WbeptcaOEVXWPJIRQ2845-56-58 06:58:00 Test Item Value Reference Range Interpretation Comments MCH (test code = MCH) 30.9 pg 27.0-31.0 N [facility] JghlaenTIHEHRKVWI8914-24-46 06:58:007.9[facility] HermannHEMATOLOGY 2011-12-05 06:58:0010.4[facility] XwcnmjvFQDGNDLYGF4787-42-84 06:58:003.37[facility] LurffvbXKEBRHYQN2457-23-38 03:58:49428Hbpwqzgo WirgkiaUSSQBJAHG0076-77-20 03:58:06083Ngyanvam RydijqbHWXXHWVEB8606-92-02 03:58:003.5[facility] FFORTLEPM5583-12-59 03:58:0033.0[facility] TejhkinHACTKWRFK7577-48-77 03:58:00 100.0[facility] QuksbkbYYGTVJQUF8697-17-44 03:58:001.6[facility] HermannCHEMISTRY 2011-12-05 03:58:001.17[facility] RasiuktTBTWLVLFD4093-09-07 03:58:004[facility] VhncsgjZSXLYVLEE1149-72-89 03:58:0029[facility] CzlxveeXNOJKXXRD8781-46-05 03:58:0046[facility] PwuzjjcXQXEYVLPN9742-26-45 03:58:09171Dnbjctub [place] HXVNRWGNL5018-47-27 03:58:0037.0[facility] WvjunkiIPMXGFASM5239-94-64 03:58:007.41 [facility] KtehkvkOGOLSAHBM0946-67-17 02:54:53144Kwpolmnb HermannCHEMISTRY 2011-12-05 02:54:001.2[facility] UuhcqvhMLONFWPYY7717-42-29 02:54:001.21[facility] YeoamkgSSQEZOKUC3108-53-41 02:54:004[facility] UhnagoaWPPUHRUYG3503-97-13 02:54:00 29[facility] NztzwhiGONKHWMBN9705-92-28 02:54:26259Trkzjmwr HermannCHEMISTRY 2011-12-05 02:54:0041[facility] SaimwmcISVRQRDYU9730-27-56 02:54:0037.0[facility] RwrmzgeSUFORBIIQ5622-53-72 02:54:003.5[facility] QqrhagbQMVFIGOCD0038-65-93 02:54:007.45[facility] NxrmrqxCQICKFIFG5075-77-04 02:54:13261.0[facility] MMRVIIVRK3077-21-37 02:54:0029.0[facility] AngongbBTRVWDCAI7730-78-91 02:54:46723 [facility] HbdppasUBWQQUUSK1637-96-01 02:03:0031.0[facility] HermannCHEMISTRY 2011-12-05 02:03:76561Hdjfjvbe PwnpcymOMAVPEKHL8270-93-09 02:03:003.4[facility] SthbnvvFONGUMGUZ9098-70-31 02:03:53369Bvwgwtcx TblwtanYHNMHVFMM5062-33-43 02:03:001.3[facility] NmjteibDOOUMEZHD8017-50-27 02:03:009[facility] LZXZUAFFC8570-82-24 02:03:56545.0[facility] AsnuxzpJHEMEVHSJ4380-91-31 02:03:00 1.22[facility] BkbhmvaXHAKHQDSF2137-37-73 02:03:0037.0[facility] HermannCHEMISTRY 2011-12-05 02:03:0034[facility] PswlqubCKXFKYHHS2966-82-75 02:03:007.46[facility] YdpbxfmNKAZKQNQW5391-76-37 02:03:0048[facility] UmermkgYIEQQJMQA8190-39-31 02:03:56421Losrjjks IgxostnYJVYHXKITG2842-37-24 21:00:00 Test Item Value Reference Range Interpretation Comments PTT (test code = PTT) 23.5 s 22.9-35.8 N [facility] RkaskkcGCOMVZFNNS6814-77-58 21:00:00 Test Item Value Reference Range Interpretation Comments PT (test code = PT) 14.0 s 12.0-14.7 N [facility] YwpfxpyPLMXHIVOLX2969-79-35 21:00:001.08[facility]annHEMATOLOGY 2011-12-04 21:00:00Slight (12/04/2011 16:00:00)[facility] HermannHEMATOLOGY 2011-12-04 21:00:00Slight (12/04/2011 16:00:00)[facility] HermannHEMATOLOGY 2011-12-04 21:00:00Slight *ABN*(12/04/2011 16:00:00)[facility] HermannHEMATOLOGY 2011-12-04 21:00:00Slight *ABN*(12/04/2011 16:00:00)[facility] HermannHEMATOLOGY 2011-12-04 21:00:00Normal (12/04/2011 16:00:00)[facility] BANK GMBXYWJ6801-51-97 05:15:00Negative (12/04/2011 00:15:00)[facility] LHMUDSQ5732-54-31 22:56:00Product available (12/03/2011 17:56:00)[facility] IxxgqorSIVTYWPSQ7748-33-97 22:42:002.7[facility] EatfwjsHKXLYJJZF0021-98-93 22:42:001.7[facility] HermannBEDSIDE GLUCOSE KFPHALH8170-12-65 16:24:16398Rrbyruwn HermannBEDSIDE GLUCOSE TOSVWWT7407-79-44 12:31:63846Avjqppts HermannCHEMISTRY 2011-08-28 09:26:001.8[facility] BfotipmUOTFNUKFI1757-81-99 09:26:0012[facility] TeqiszvBYJVFZQSR0770-95-42 09:26:0036[facility] FetklooJIOLSFBBV4260-44-50 09:26:000.7[facility] TpzdtkiAZGWHFCUT0383-95-94 09:26:009[facility] [place] ZNWZEPMWV0292-55-67 09:26:67724Njnladzr KabbbenZESKBSQNJ7863-31-34 09:26:003.9 [facility] ZnvotqdVYLZJVGEQ3352-90-76 09:26:0012[facility] HermannCHEMISTRY 2011-08-28 09:26:001.3[facility] OzgpwfaTZZEZFVNL3850-19-83 09:26:0096[facility] IxaekzfLLPWPJMBP5529-75-73 09:26:008.1[facility] FqabdgsCEZZXWHDP1609-22-88 09:26:003.1[facility] SawgbixOMHACDLKP8470-24-53 09:26:006.9[facility] [place] BHRCIEBLE4495-77-49 09:26:73057Isusphmp NgxvlmqDNPRVVBWY5936-24-92 09:26:0028 [facility] NqsaugnGISLNWVTB2895-02-64 09:26:0013.9[facility] HermannCHEMISTRY 2011-08-28 09:26:009[facility] TkjthaxYKHBOTOWW0301-95-79 09:26:003.8[facility] BrfaqhgMMXRETHOQ0112-56-75 09:26:000.8[facility] MhwtxfjSWJECXKOOA4862-25-50 09:26:00 Test Item Value Reference Range Interpretation Comments MCH (test code = MCH) 30.9 pg 27.0-31.0 N [facility] PorstufGOOJMECIGB9405-02-78 09:26:0034.1[facility] HermannHEMATOLOGY 2011-08-28 09:26:0034.5[facility] VkotzukYTFKULZCTV8672-15-75 09:26:0011.8[facility] IdxictvGUWVMTJLRF3072-40-20 09:26:006.0[facility] HmzvxqsZELEAJHINC6487-53-20 09:26:003.81[facility] GpwmcgcWCQISOGRNQ3548-26-23 09:26:009.0[facility] ZOCHJDWURJ5455-49-22 09:26:0090.8[facility] XowcklkCHSWZZRCRT0361-46-86 09:26:00 13.9[facility] GbwphdpTTYMXQGOEK7968-72-96 09:26:0060[facility] HermannHEMATOLOGY 2011-08-28 09:26:00 Test Item Value Reference Range Interpretation Comments PTT (test code = PTT) 31.9 s 22.9-35.8 N [facility] FqfnqkcFKYBMRACOR8084-62-69 09:26:001.78[facility]annHEMATOLOGY 2011-08-28 09:26:00 Test Item Value Reference Range Interpretation Comments PT (test code = PT) 20.6 s 12.0-14.7 H [facility] HvbvenvJBIEYHCJPM4957-24-30 09:26:001+ *ABN*(08/28/2011 04:26:00) [facility] OhmskdqNQEAZKGILR1027-57-76 09:26:00Slight *ABN*(08/28/2011 04:26:00) [facility] GydnpcbWWSICBITQK5946-87-02 09:26:000.0[facility]annHEMATOLOGY 2011-08-28 09:26:000.2[facility] TelgsgpGDZWRFEBWW5471-68-26 09:26:002.1[facility] LfmysylHRRFRDMFVP1625-30-15 09:26:000.5[facility] PptpavhIFPDSQGQFI4766-49-76 09:26:003.2[facility] UxosyvrIIKWDCYJSU3876-48-11 09:26:000.4[facility] [place] EXWSRLYICG7693-30-73 09:26:003.9[facility] NsgsuwqKGDBERIAGR2434-25-86 09:26:007.6 [facility] BnujgwvNJKHQTNXLG8787-66-23 09:26:0034.4[facility] HermannHEMATOLOGY 2011-08-28 09:26:0053.7[facility] HermannBEDSIDE GLUCOSE ZXTWTRH5006-85-56 00:48:98939Phfpzpor XedlpztJEHDHGCTXP8045-30-79 19:57:0033.9[facility] CTHCGCFOWE9650-23-62 19:57:0011.5[facility] GgrqpwxYPPSBEYFV6706-35-64 09:20:003.1 [facility] FbjiaswWJLACRVFP8190-45-85 09:20:0014[facility] HermannCHEMISTRY 2011-08-27 09:20:000.7[facility] DldzpbxPENPHWXQV0430-87-14 09:20:008.2[facility] UqbmvkaQVSSFDQCP5107-54-49 09:20:0012.7[facility] GefyrtwOFVZUXSYQ6720-26-52 09:20:0029[facility] ZcfopmxIDZZXNZMR2869-48-16 09:20:006.9[facility] PPVSWPMJP0084-20-70 09:20:0011[facility] QltsfmgRIMDMAMJS1307-34-94 09:20:003.1 [facility] QqdubglCRKMLSPLE1454-41-10 09:20:0037[facility] HermannCHEMISTRY 2011-08-27 09:20:0013[facility] AbjndlaJMREQWCBX9114-14-02 09:20:000.8[facility] PyvwgjcAEUFMSQYW7925-45-14 09:20:003.8[facility] MzfpripFNNGJJANT1167-83-39 09:20:0098[facility] OwivaxuULYHMRDNR6944-62-44 09:20:0017[facility] QQPYOEJFM0940-69-69 09:20:001.6[facility] ZzfraigNXAFJBMMT9905-28-04 09:20:53327 [facility] DtiivppLKXHVBRCA0225-17-31 09:20:003.7[facility] HermannCHEMISTRY 2011-08-27 09:20:69151Bskvvaxl GqkbixsDCNCEEWUX3341-91-85 09:20:001.8[facility] FxlibwuDHIYDLLGI0393-10-80 09:20:003.93[facility] DfkofesKZJFKRTAU5325-40-09 09:20:0052[facility] KbjconqLPTRZJKHV7644-26-74 09:20:80343Rvsijvos [place] SFIGWIEPV2513-03-57 09:20:0028[facility] YwfprbmUJGQPYSQQ5088-72-45 09:20:60193 [facility] CnlckpvGPCLGPRHGJ4751-59-29 09:20:00 Test Item Value Reference Range Interpretation Comments PTT (test code = PTT) 32.0 s 22.9-35.8 N [facility] KmnwxyxDEEUSVQHRY3988-58-61 09:20:00 Test Item Value Reference Range Interpretation Comments PT (test code = PT) 20.7 s 12.0-14.7 H [facility] JotcwskQZMLUOLJJJ2898-13-06 09:20:001.79[facility] HermannHEMATOLOGY 2011-08-27 09:20:0013.7[facility] AtqzyhjNVUFASVVVD2144-15-97 09:20:0055[facility] PvbiuyjYCPJMGQJZM3335-13-05 09:20:009.1[facility] FmdzwflJBHQHTHXXE1817-68-54 09:20:0034.1[facility] RhkapcnMEAJVFLTPB3204-12-64 09:20:0034.7[facility] [place] VOUNGZOTRE6092-52-84 09:20:0091.3[facility] DltbwjwWZJZLJFYAY3687-68-40 09:20:00 11.8[facility] CxdvzvpMRNNVEFJLP5620-98-94 09:20:00 Test Item Value Reference Range Interpretation Comments MCH (test code = MCH) 31.1 pg 27.0-31.0 H [facility] ZfpimvsKJZEPDZYWB1750-00-92 09:20:006.4[facility] HermannHEMATOLOGY 2011-08-27 09:20:003.80[facility] VwdzdtzYJUVNLOQXP6578-67-98 09:20:002.8[facility] MpqztpxNZATTTGDCG2043-57-57 09:20:000.2[facility] PndwkliJUSGQJUBBO8377-75-94 09:20:000.0[facility] BxpnterONLDNVBQTH5617-83-24 09:20:000.5[facility] [place] KZBLWLOPNR4635-11-37 09:20:003.3[facility] BsmxebqSDIREVGLZN5152-43-91 09:20:000.3 [facility] NmgqpjlQNOVKBNWYK0477-06-08 09:20:002.9[facility] HermannHEMATOLOGY 2011-08-27 09:20:007.1[facility] RvjmfdkCGKECULBSS3525-13-94 09:20:0045.8[facility] FruhnjcWAHROLIHFQ1832-18-08 09:20:0043.5[facility] RjmftdyWHHAZWQAR6213-26-82 01:25:002.5[facility] OppcmkeQGIGNSYWU6925-10-02 01:25:001.7[facility] GEMDPMQKO9713-64-63 01:25:0011[facility] QmduljmLRKEVPAGM8778-17-09 01:25:000.6 [facility] PgigusaDEGCPJSKR1409-07-86 01:25:0038[facility] HermannCHEMISTRY 2011-08-27 01:25:0014[facility] UgdnnjfQTATQTWDA5110-86-38 01:25:003.4[facility] WdafqqsULAQNPGLS0253-03-03 01:25:48654Hyekerrz QczyatdIOTNBAOGE0429-52-13 01:25:001.7[facility] SzrxicoSSWTRRATT5112-30-33 01:25:80379Mgxebeqk [place] GANNVCUOV7586-41-41 01:25:0020[facility] FvhsaifGRNPOWGVW2254-23-51 01:25:003.5 [facility] KwqrqwkQVOJYCUSM8478-00-37 01:25:02818Dujqiwnx HermannCHEMISTRY 2011-08-27 01:25:007.6[facility] WkugofyZEIMHDODV9161-13-20 01:25:008.7[facility] ObgatgcZKMSHPFGV7294-89-33 01:25:0028[facility] XnyscsfEZBSIJMIB6163-76-85 01:25:000.8[facility] PxwjuqgFMVBRJETB3815-66-07 01:25:004.2[facility] [place] QAWCCGJIW0756-99-77 01:25:0012[facility] EwmyannXDLQFDGWV5941-57-62 01:25:0012.5 [facility] DpmijahORFEPKVZWY4991-08-05 01:25:001.82[facility] HermannHEMATOLOGY 2011-08-27 01:25:00 Test Item Value Reference Range Interpretation Comments PT (test code = PT) 20.9 s 12.0-14.7 H [facility] GfrmxgwOPXGKCMVVS2161-11-13 01:25:00 Test Item Value Reference Range Interpretation Comments PTT (test code = PTT) 32.2 s 22.9-35.8 N [facility] XnfntesONIHCURUXG0124-23-83 01:25:007.3[facility] HermannHEMATOLOGY 2011-08-27 01:25:0059[facility] GbeovspMWIXPFTUPR6773-09-49 01:25:0014.1[facility] BkxauawWUXPBCPKDB3592-38-05 01:25:0033.8[facility] YseoqgoXHTSYHPCOQ1083-21-13 01:25:009.3[facility] SbysnioDYZFAUQHQP5752-56-57 01:25:003.95[facility] CUFXVQKEHW1573-63-07 01:25:00 Test Item Value Reference Range Interpretation Comments MCH (test code = MCH) 31.1 pg 27.0-31.0 H [facility] TyalcrsSUOVADIOQV3518-88-35 01:25:0091.8[facility] HermannHEMATOLOGY 2011-08-27 01:25:004.2[facility] BjmoxebZCMVUPYDNW5159-89-72 01:25:000.1[facility] QnewkeqXWWYCUOWMV0629-93-73 01:25:002.5[facility] QemhbcpIEMMZSNSZC2015-88-39 01:25:000.4[facility] OzmukyoHSIYFNFXXM2406-85-03 01:25:00Slight *ABN*(08/26/2011 20:25:00)[facility] BhwvujoDYFNYLKGDN7688-25-12 01:25:000.0[facility] [place] KOOLICNYGZ4616-20-31 01:25:004.9[facility] LbkakbeIBFWHQVLEX3989-45-20 01:25:000.5 [facility] XjegbkkTYQNMDXQIC3054-93-95 01:25:002.0[facility] HermannHEMATOLOGY 2011-08-27 01:25:0034.5[facility] CzrxeywCYSZJOTJPB6986-04-36 01:25:0058.1[facility] ZeoftqtZIJANXZLVR8749-62-63 01:25:00Normal (08/26/2011 20:25:00)[facility] BEDSIDE GLUCOSE XFXGPNK0030-05-92 13:41:41782Dzrbyrpj LfdazacCIEWTJMFI4106-05-53 13:00:006.2[facility] NdxbpzlEOKYZUUNY7675-08-97 13:00:0016.6[facility] VCTEPIQFQ6881-49-60 13:00:009.0[facility] WlohmffJLSPABGCR6087-22-95 13:00:001.0 [facility] ThztnwsOQFVGYGBJ1730-76-41 13:00:0021[facility]annCHEMISTRY 2011-07-07 13:00:004.6[facility] AwmwbreAWYQCMQWT3814-27-74 13:00:92048Chkvsqsj EnkrkdhGMOBKIAYB5380-34-04 13:00:55349Dqadoyun RitktnyCNLCJZYTC6278-74-86 13:00:11101Phuamnul IadsewjJARRDRAYX0026-46-45 13:00:0027[facility] XCQNEHCXHM4751-59-89 13:00:009.4[facility] DmbbifgKBIDVKFCNV5352-44-80 13:00:0049 [facility] PetfwvjRAESHCLWTA0112-79-49 13:00:0033.1[facility]annHEMATOLOGY 2011-07-07 13:00:0014.4[facility] VjyksdxPJZPAYKICX2936-52-33 13:00:0039.9[facility] GeoirtcVEKBBDBQGA5897-20-71 13:00:006.3[facility] EbqqrqoLYKJYRWEAO3722-16-95 13:00:004.26[facility] SvdzudtGPPUVSWBXY1976-98-18 13:00:0013.2[facility] JNSZQHQGGN0971-24-13 13:00:0093.7[facility] AsdgbgxUCGHQKSKGC2523-06-13 13:00:00 Test Item Value Reference Range Interpretation Comments MCH (test code = MCH) 31.0 pg 27.0-31.0 N [facility] DzvxrvoHGZJJICBPO0929-12-63 13:00:00Slight *ABN*(07/07/2011 07:00:00) [facility] LnplgylXRXPVMVJNE3519-95-19 13:00:00Slight *ABN*(07/07/2011 07:00:00) [facility] VemhykvGOJDCRGRMT9991-44-16 13:00:00Slight (07/07/2011 07:00:00) [facility] AgxbuhePYJIZXZXDL3031-10-10 13:00:000.0[facility]annHEMATOLOGY 2011-07-07 13:00:000.2[facility] ErgearbAYOGWTRGZN7188-37-17 13:00:003.4[facility] ZgfjaafUJVPVMTMKT0046-42-64 13:00:000.4[facility] FsyyrckHPUCMEGSXT8338-91-64 13:00:000.4[facility] QvjjfenUOOZDFDQZG6221-10-90 13:00:002.3[facility] BTIHHRBTBF1645-26-84 13:00:003.1[facility] SyaqvnvKNVMBIXWBZ0681-64-82 13:00:005.8 [facility] ZrrjwjbRESEXXCGNH6322-77-77 13:00:0036.1[facility]annHEMATOLOGY 2011-07-07 13:00:0054.6[facility] HermannBEDSIDE GLUCOSE WCRWGYM4986-64-89 02:20:85654Yshgbbix HermannBEDSIDE GLUCOSE VHXDCXQ0139-51-82 22:22:0086[facility] BvcdqulRONMYXBIT3789-71-78 11:45:002.680[facility] CthogpaJMNHKRLCQ2745-68-67 11:45:002.64[facility] WagmztfSKNPOYMKE3873-66-38 11:45:0044[facility] PNWFHGGEZ2228-54-14 11:45:0039[facility] UantudjGIIOMPFLR0763-52-01 11:45:73063 [facility] LhlfoepFTPLVSGSR1210-84-16 11:45:23465Ofsekslt HermannCHEMISTRY 2011-07-06 11:45:007.3[facility] OulfxolCQMIXQIYQ4244-15-64 11:45:003.7[facility] QwlfidmVGYFAAAXH0288-93-48 11:45:0051[facility] NkfzoxvQPBAYMACL0955-94-19 11:45:0016[facility] GjsrjpdMCROYVTBU7403-30-33 11:45:003.6[facility] TGUVQMLNJ1596-29-77 11:45:001.0[facility] LgprgdzJCOGPWDOY5854-40-09 11:45:0012 [facility] GrqrjheVFHEDTNLP0586-60-41 11:45:000.4[facility] HermannCHEMISTRY 2011-07-06 11:45:008.8[facility] FtbeafnUFMUQKWFE2229-11-05 11:45:0013.5[facility] KqxsazfNNWMWJODF3184-35-34 11:45:0017[facility] WlwbmbvFHXZJCEJS4828-71-95 11:45:0020[facility] YcnfulbXAUAETZRL8266-60-80 11:45:06206Cguqfzjq [facility] XDGAUYCNB4113-77-78 11:45:0028[facility] BalrwvxFXEJXNRMM3518-15-60 11:45:001.2 [facility] GwzvjkmBZXGDMKZU9473-07-67 11:45:003.5[facility]annCHEMISTRY 2011-07-06 11:45:93642Ruzoxnej JphjyyjKCPQIXQGI3582-62-91 11:45:06135Rgfthpnj QwoamsoOAXAGUMFK3405-36-28 11:45:000.9[facility] LeyazqcYKLJWNONT7005-37-72 11:45:000.19[facility] GcpzsxhZACENLXDT2858-57-84 11:45:000.7[facility] CHWQPTLWE6148-49-32 11:45:0075[facility] KxkwdtsKKENEOYNUI1257-42-41 11:45:0093.0 [facility] PqdgefcPUQNQVONOV9544-35-39 11:45:0033.8[facility]annHEMATOLOGY 2011-07-06 11:45:00 Test Item Value Reference Range Interpretation Comments MCH (test code = MCH) 31.4 pg 27.0-31.0 H [facility] PlpyhfaMEWVJXEZXC6933-85-87 11:45:0012.4[facility]annHEMATOLOGY 2011-07-06 11:45:0036.7[facility] DpithrqLYBPULIGDS4454-42-08 11:45:009.7[facility] GkknwisHRVLLJNIZI0638-54-05 11:45:0014.1[facility] RnstgsgTKWTPQRVAC9704-31-27 11:45:0046[facility] TwhfnnjSXNEYKSFKV9164-97-99 11:45:005.9[facility] NEQAYLUASE7034-34-81 11:45:003.94[facility] CiwrrgrJTRPBNVTDK6629-61-68 11:45:00 Slight *ABN*(07/06/2011 05:45:00)[facility] DfnzghmHAGNACWJZD4085-51-75 11:45:00 Slight *ABN*(07/06/2011 05:45:00)[facility] FqyhuglECYCGUURIB5709-19-53 11:45:00 Slight *ABN*(07/06/2011 05:45:00)[facility] NpfugorCJQZPHXYWA8145-46-65 11:45:00 Slight *ABN*(07/06/2011 05:45:00)[facility] EkgdgciBWDYLMFBJR3567-89-24 11:45:00 Slight (07/06/2011 05:45:00)[facility] BzzuoltELXWDVLOUY0098-73-18 11:45:001.0 [facility] XnqrosfXZNWONOODT5601-63-42 11:45:001.0[facility]annHEMATOLOGY 2011-07-06 11:45:005.0[facility] AbomhuoDLCIBXHRJQ5705-47-73 11:45:004.0[facility] EtdvytgGMINAJIVQZ6977-33-62 11:45:0048.0[facility] SlpeodnZEXPDMJYTR7795-47-79 11:45:002.5[facility] QqnflnmLRESTBSARL7551-16-65 11:45:000.3[facility] IKYEJZYHSR3897-67-62 11:45:000.1[facility] QrrxadqTRBOCDQZUG3885-37-31 11:45:000.0 [facility] VgvlacyTNVMXUUDTP9994-08-65 11:45:0039.0[facility]annHEMATOLOGY 2011-07-06 11:45:002.0[facility] OvpxolbNSKRJQMYJW2405-30-26 11:45:002.8[facility] LqkwggoWSDGGMLKC6790-36-36 03:56:14883Ymwvhpxi OyhxkchRWAUHNKRX1732-10-81 03:56:000.5[facility] EivosloCOTCMJWPN6888-64-43 03:56:000.18[facility] ILSASNVHV3702-45-16 03:56:0079[facility] NztkjarOFEZYLRHF6911-17-12 03:56:000.8 [facility] RgbjkszXRSTXRJUI3827-39-18 03:56:004.4[facility]annCHEMISTRY 2011-07-06 03:56:000.4[facility] GsnkwcbPZVXMWKKL2049-55-40 03:56:0014[facility] NpfkllqKYTVVZFIX3180-15-02 03:56:008.8[facility] YjeiirvRSDOMHIHU0263-75-00 03:56:0014[facility] AoabziqFLCLWSNOV6071-06-93 03:56:0033[facility] AHYSJXYPN7505-91-40 03:56:001.4[facility] WerlespWBSSGGEAE5173-26-42 03:56:10667 [facility] IxfwpntGNJYGDEZV4754-58-84 03:56:003.8[facility] HermannCHEMISTRY 2011-07-06 03:56:44472Qlwjwxbf BqxybfgSTHQFEVJF8852-25-42 03:56:0018[facility] YohcojiJCZSQGBNN0223-16-49 03:56:0054[facility] OwoyhtgUOEQTZGYN0051-78-46 03:56:008.9[facility] DvwwqboAJFDKBJWI7541-73-52 03:56:008.1[facility] ZKFRYZFES1297-04-31 03:56:003.7[facility] KrrckuqOJJFNNWXL0007-76-07 03:56:0020 [facility] LdablzaQAVXIVFQZ8870-55-63 03:56:51292Pznwqdei HermannCHEMISTRY 2011-07-06 03:56:000.6[facility] GgeqhnqZPQXHIITCX4050-45-31 03:56:00 Test Item Value Reference Range Interpretation Comments PTT (test code = PTT) 27.8 s 22.9-35.8 N [facility] IyqbebfPBEOEMRZQB5519-19-34 03:56:00 Test Item Value Reference Range Interpretation Comments PT (test code = PT) 17.7 s 12.0-14.7 H [facility] HjgomzjODRHWQKWKV5075-49-67 03:56:001.46[facility]annHEMATOLOGY 2011-07-06 03:56:004.11[facility] PmujtpiYWWTWIAORR0406-03-09 03:56:0049[facility] EjeoijcANAHEGUGHG9216-64-51 03:56:009.1[facility] EifbiluRDLMMFQVGA0669-00-07 03:56:0014.1[facility] TpvolmhIEPHWQNMQP2297-49-21 03:56:005.5[facility] DOOUJMLZBU1002-57-17 03:56:0037.2[facility] XalmrucTIXCAQVCTD8499-19-10 03:56:00 90.5[facility] FcvlyhpKWDTZOPUAW7882-54-81 03:56:00 Test Item Value Reference Range Interpretation Comments MCH (test code = MCH) 30.8 pg 27.0-31.0 N [facility] JajiblyTJYEEDWBGD2079-60-38 03:56:0034.0[facility]MATOLOGY 2011-[facility]-06 03:56:0012.6[facility] YnnhteuNMXBVOBNJW4235-65-74 03:56:002.0[facility] HrvgoxnLVYJEOFHUM5911-88-37 03:56:000.4[facility] AydxszvTVHKQGJVLH3614-48-54 03:56:00Slight *ABN*(07/05/2011 21:56:00)[facility] IlgppxaXDSLMHJYJI2015-89-12 03:56:000.1[facility] DctdqqqPCNTKMRYSD1126-95-87 03:56:0036.0[facility] BNOPBFOSNX6659-55-35 03:56:000.1[facility] UyrpkkyCULLNXCXBC2258-61-41 03:56:003.0 [facility] AtonyncURQATXAKXJ5311-24-04 03:56:0054.0[facility]annHEMATOLOGY 2011-07-06 03:56:000.0[facility] AsxlrtkXEGEECAERS0914-59-93 03:56:007.0[facility] YphqbcfWJZPZDGCXR4847-22-47 03:56:002.0[facility] TrenxxiFPFNTUMRQS2678-03-49 03:56:001.0[facility] MhblvznHXWCNJKISO6920-11-25 03:56:000.0[facility] WAQHYZHMHP4430-32-38 03:56:002[facility] QxazldjFXSUCHLPYJ2282-88-83 03:56:00 Normal (07/05/2011 21:56:00)[facility]annBEDSIDE GLUCOSE KWICIKQ5241-91-74 17:34:62055Tryoktkq HermannBEDSIDE GLUCOSE NXFSHOU6910-30-80 13:53:23924Foppojtb DystpkrKRDGSUOMR0984-05-52 11:00:002.1[facility] QrtpgzrACIOCTNNL9995-86-10 11:00:0010.4[facility] SoeyxnzXWLWXMJRR5581-98-16 11:00:0029[facility] SWYCLLVAG0982-84-03 11:00:008.2[facility] HhakuhyQAHITUBOB7212-43-86 11:00:28742 [facility] WdwqtftOIOFASOOG8346-80-14 11:00:82751Mxjckdwa HermannCHEMISTRY 2011-05-05 11:00:004.4[facility] NyoahodCJGUSHVAC3544-45-69 11:00:001.2[facility] KmmskmcJXYMDPPVJ9974-02-52 11:00:0086[facility] UmjecbjNFRTDNJVO8322-34-50 11:00:0025[facility] FivjllkBCCJUXRIA4872-89-79 11:00:0089[facility] FQSPQZWEV3725-07-35 11:00:0042[facility] WkqzgkoFMDHOKKKR5322-71-93 11:00:77612 [facility] DyndwzmWJCSLYJRG5880-42-66 11:00:49534Jqvjfhoq HermannCHEMISTRY 2011-05-05 11:00:003.67[facility] FjubigmANCXQIVLU1782-47-43 11:00:002.5[facility] HxdwismUDTGENEOEV8974-51-31 11:00:00 Test Item Value Reference Range Interpretation Comments PTT (test code = PTT) 44.8 s 22.9-35.8 H [facility] UtbuvroHFXHOARPPX7253-46-93 11:00:00 Test Item Value Reference Range Interpretation Comments PT (test code = PT) 21.1 s 12.0-14.7 H [facility] YrxyvceTDVSKSLKBJ3365-26-61 11:00:001.84[facility]annHEMATOLOGY 2011-05-05 11:00:00 Test Item Value Reference Range Interpretation Comments MCH (test code = MCH) 31.5 pg 27.0-31.0 H [facility] ZzoljqvVFEVQCQTVD3005-19-83 11:00:009.7[facility]annHEMATOLOGY 2011-05-05 11:00:0034.0[facility] EurfowdZIQBKTKVFQ5130-70-39 11:00:0048[facility] YgnaeabPPSBROCIFL8856-07-42 11:00:0012.5[facility] IyfxinoRKNXQJXFTN0549-12-51 11:00:004.3[facility] FgjdegmSVJWSTAPFL5631-64-56 11:00:003.97[facility] IMOUJWMVWR0271-16-89 11:00:0036.7[facility] WeraylkFHYDGPZZFE6541-82-32 11:00:00 92.5[facility] GzsqejpZHGTSXUATD3643-76-14 11:00:0015.1[facility]annHEMATOLOGY 2011-05-05 11:00:00Slight *ABN*(05/05/2011 05:00:00)[facility]HE[facility]Y 2011-05-05 11:00:00Slight *ABN*(05/05/2011 05:00:00)[facility]annHEMATOLOGY 2011-05-05 11:00:000.0[facility] ZiffmozCWFOFKHFRB2364-08-29 11:00:000.0[facility] EqvknhuAKQDCABQJE2492-73-54 11:00:0051.0[facility] NldixktLMNQFLQEOM2521-35-42 11:00:000.0[facility] QycncqjQMMQVUIOAW3724-29-99 11:00:0042.0[facility] PKUSFJFPNY3852-68-85 11:00:000.1[facility] ApslykxOHXBMOFTFM2695-72-53 11:00:000.2 [facility] KicvmbfAXFJIHIPSH2117-04-05 11:00:002.2[facility]annHEMATOLOGY 2011-05-05 11:00:001.8[facility] JsmdtvvAHYIKDDPKO4344-41-87 11:00:002.0[facility] MhpaetfYAMDQEZQXB4140-05-86 11:00:005.0[facility] HermannBEDSIDE GLUCOSE TESTING 2011-05-05 03:20:45411Yfeaigtp CmazqwvNJPVPXCKHN3173-03-44 10:30:000.0[facility] KvmzudaRDJMDLLMXF6411-73-43 10:30:000.1[facility] KerlszuSTHUGSZVWH7303-96-06 10:30:006.1[facility] MmnxnvaDRHOCOBYGN2599-12-69 10:30:0033.5[facility] HRAAHPBVUK8555-82-18 10:30:0056.9[facility] VocizmwKUTWAGPOYC4655-09-05 10:30:00 1.5[facility] RfpgzwcOQOIDNPXXB9029-43-26 10:30:002.6[facility]annHEMATOLOGY 2011-05-04 10:30:000.3[facility] SygvjrzAHKDULUFSS7130-90-18 10:30:002.9[facility] CajplkjJAVNVXPLRE7331-32-38 10:30:000.6[facility] FelkrrbSERUDGLSAD8559-75-81 10:30:00 Test Item Value Reference Range Interpretation Comments PTT (test code = PTT) 43.4 s 22.9-35.8 H [facility] IoppvdfCIXKBSCAGG8904-86-80 10:30:00 Test Item Value Reference Range Interpretation Comments PT (test code = PT) 18.2 s 12.0-14.7 H [facility] SgrojgtQQVLTHKGCD6709-19-07 10:30:001.52[facility]annHEMATOLOGY 2011-05-04 10:30:009.8[facility] TjfosufHIESRFKVHX4618-33-16 10:30:0034.2[facility] DfjtnaeLRVLXBIPAK6308-17-01 10:30:0015.0[facility] VvttvvsAFFSIFKJBH9410-84-92 10:30:0051[facility] VouxacfLXNWVMDUJL5139-06-90 10:30:004.06[facility] ZWCNVLRFNX3799-11-55 10:30:0012.6[facility] MkmpojsXNFHZHOYQI6393-70-84 10:30:00 Test Item Value Reference Range Interpretation Comments MCH (test code = MCH) 31.2 pg 27.0-31.0 H [facility] LpeyqefKXMMBVHYEG8696-89-55 10:30:004.5[facility]annHEMATOLOGY 2011-05-04 10:30:0037.0[facility] TzpuqvvYAQEVFUVPA3890-49-01 10:30:0091.1[facility] LwzsadlLEGQZEBOSM2996-62-47 10:40:001.41[facility] KxqmdnxHVOVGIMWMX5206-73-35 10:40:00 Test Item Value Reference Range Interpretation Comments PT (test code = PT) 17.2 s 12.0-14.7 H [facility] BntxgciUOMTNLPXID7032-92-96 10:40:00 Test Item Value Reference Range Interpretation Comments PTT (test code = PTT) 37.6 s 22.9-35.8 H [facility] RijifkbIBJICJAANG0050-43-89 10:40:0010.0[facility]annHEMATOLOGY 2011-05-03 10:40:0066[facility] NkxvljgWBOMKIQIEB1509-06-16 10:40:0091.6[facility] MqnwjmgYCHGRESLFD5352-79-76 10:40:00 Test Item Value Reference Range Interpretation Comments MCH (test code = MCH) 31.3 pg 27.0-31.0 H [facility] YyqaeqbQZLJPBAKQH6416-02-51 10:40:0034.2[facility]annHEMATOLOGY 2011-05-03 10:40:0015.4[facility] HnyustbFKMUXHSOPC1163-02-13 10:40:0038.7[facility] JpjwjweAHHSVEWECC9955-99-95 10:40:004.8[facility] VwcorvrFZQPVCVWWI0433-08-72 10:40:004.23[facility] UpblekxDNHXNYMVNL6385-96-79 10:40:0013.2[facility] CGNRKSOSBD1263-14-73 10:40:00Slight *ABN*(05/03/2011 04:40:00)[facility] OXZUPOHNBR1015-68-44 10:40:000.0[facility] YjkgqhsOPQGZITYBL5676-79-81 10:40:00 Slight *ABN*(05/03/2011 04:40:00)[facility] LfuksanUSPJQWTHPW4900-73-83 10:40:00 2.0[facility] UkfhdccESNESNCFGL6590-79-02 10:40:006.0[facility]annHEMATOLOGY 2011-05-03 10:40:004.0[facility] GksirteZYRFPXBVZM1944-66-35 10:40:001.0[facility] DgvozksPCJQZRMXKR8539-17-58 10:40:000.3[facility] AkqycdzQQAHDPNKFK2548-56-36 10:40:0054.0[facility] YuipzpiONCNFOVXOJ5719-04-13 10:40:0033.0[facility] ZRXMBLPSDW2402-21-33 10:40:000.2[facility] JkywndcNVDDGLANGB6044-94-33 10:40:002.7 [facility] KotxcjoPHXKTTMLPO4325-53-15 10:40:001.6[facility]annHEMATOLOGY 2011-05-03 10:40:000.2[facility] ApmifowIFGNOISFBG5134-64-09 10:40:000.2[facility] NdhgupxWRZMUDXRNQ8965-60-23 10:40:000.0[facility] ZgdpntwKVNCOTCTDS9609-46-98 10:40:005.1[facility] OidwlaxNAFDUJOJGY1973-82-03 10:40:003.4[facility] FMNNEPHHAT7162-78-73 10:40:000.4[facility] SnaejfoLLAHIHKCGM8417-95-05 10:40:001.7 [facility] UsbvuqeVPSDDUQPLX5432-61-77 10:40:002.6[facility]annHEMATOLOGY 2011-05-03 10:40:0036.4[facility] DiqtvsdLRQAKWRTLR6775-98-13 10:40:0054.7[facility] KyqhnfvFFJLVJEZEQ0329-79-80 10:15:00Slight *ABN*(05/02/2011 04:15:00)[facility] OnovckqKBOSMBLUCD4875-80-00 10:15:00Slight *ABN*(05/02/2011 04:15:00)[facility] DdzxaovMHRPBXVBZU5563-32-00 10:15:000.0[facility] QpvhunxZMNNWPDSCS9186-57-90 10:15:00Slight (05/02/2011 04:15:00)[facility] JeujnceSMZMCIXWMC2080-44-31 10:30:00Slight (05/01/2011 04:30:00)[facility] KfqbrogNIFMNVLMIH3992-86-18 10:30:00Slight *ABN*(05/01/2011 04:30:00)[facility] MvvtzfdPGEJBFIAUW3907-27-81 10:30:00Slight (05/01/2011 04:30:00)[facility] WzhuhavRJQDPMYBDA3659-29-79 10:30:00Slight *ABN*(05/01/2011 04:30:00)[facility] BeiihtdKDJKRUAQUE9691-66-35 10:30:005.0[facility] RhqwogiTVIUGKATER7367-44-24 10:30:000.0[facility] SVDDMUELLX7194-28-26 16:15:005[facility] VmmqnlmVLPEYUWDIZ3605-92-44 16:15:08052 [facility] LiikfbcAWKLREAUQT6303-72-48 16:15:906376Uscuccsm HermannHEMATOLOGY 2011-04-30 11:00:00Normal (04/30/2011 05:00:00)[facility]annHEMATOLOGY 2011-04-30 11:00:00 Test Item Value Reference Range Interpretation Comments dRVVT (test code = dRVVT) 36.9 s N [facility] RrzhenxPZNERSPPOJ6845-13-46 11:00:00Negative (04/30/2011 05:00:00) [facility] GvuxvfvOKJXTWPQHK6844-98-39 11:00:007.0[facility] HermannIMMUNOLOGY 2011-04-30 11:00:001.65[facility] BxtuxdxYKUTTFCDKH1816-73-75 11:00:000.78[facility] LbjajxuACBCPUQHZE4155-78-44 11:00:000.69[facility] MfxuzhxLMCMMKTYUQ3054-21-35 11:00:0051.1[facility] WbbcxmaRWTMGKQYGW6455-70-08 11:00:004.2[facility] AOPGCVYZNQ7288-12-47 11:00:0011.2[facility] PdvhzfkTQVKTXQERR0153-22-51 11:00:00 9.9[facility] SvchwpqTQNNZKIUXX0846-52-56 11:00:0023.6[facility] HermannIMMUNOLOGY 2011-04-30 11:00:003.58[facility] DjizdinMECDGOJMWS6327-14-86 11:00:000.29[facility] GysszllORBZKSNJYW7918-80-94 11:00:00<9[facility] DdicyueHTHWSOAFHR8836-70-98 11:00:00<9[facility] ZncphsdHAGFVEBWVV6631-01-48 11:00:00<9[facility] WOFBXIFBJS0580-35-78 11:00:002[facility] EscwjkcBKYJOQJKLG9013-56-14 11:00:004.3 [facility] ZmfarlnJMEBEYPDUI4255-89-17 11:00:006[facility] HermannCHEMISTRY 2011-04-29 11:20:008.3[facility] QhgnyadOOMRIQYZR3154-34-30 11:20:004.5[facility] UostupnPYCGYSGBN2647-82-30 11:20:41924Wojsvnpr VmaojpjTCHAPTFFU3692-38-58 11:20:0031[facility] GvphrdsZLDUYNOSV1349-96-12 11:20:60593Gniyfecw [place] BUXQTCEGX8509-78-65 11:20:0022[facility] VwakofdYWISCUEVJ2692-95-06 11:20:001.4 [facility] LtpbcjyITYIEEVNJ3959-45-49 11:20:84260Yacgnrrn HermannCHEMISTRY 2011-04-29 11:20:0011.5[facility] PobxgskOXOIPXVBR0649-19-10 11:20:007.2[facility] ZydhxboOSOEQGUWU3841-70-88 11:20:003.540[facility] JcqfkmwNUWXAMMIIQ2768-22-05 11:20:00Slight (04/29/2011 05:20:00)[facility] HermannBACTERIAL - SEROLOGY 2011-04-28 16:58:00Negative 1(04/28/2011 10:58:00)[facility]annCHEMISTRY 2011-04-28 16:50:006.7[facility] JrzyuwxBUFIXERBZ4634-46-82 16:50:0015[facility] DktkionDLGUERUXL9131-45-95 16:50:003.2[facility] MpcwihrHEGCFIIVE1892-17-73 16:50:0046[facility] RhiydamNJHLXYDJT4000-17-78 16:50:000.2[facility] MAJHERXHW0747-49-52 16:50:0017[facility] RkvfsdjTFQTNJLTU9927-34-66 16:50:000.8 [facility] OkimuhjMQSVGDCNV3930-48-83 16:50:003.5[facility] HermannCHEMISTRY 2011-04-28 16:50:000.6[facility] CamxpetPATNXKZWP5254-15-56 16:50:000.9[facility] DhqtwbzLLMFRSGRX1992-30-60 16:50:0030[facility] SsamosbFKDBSWHVA2528-00-95 16:50:008.0[facility] PnxewvnULIWZELBM3976-99-81 16:50:0099[facility] WJDXOQEQN9356-73-81 16:50:003.6[facility] GoejuwaLQFXMIBBW0792-56-02 16:50:0026 [facility] ImnfltrCKCEUDFRU7514-71-62 16:50:22902Xpdqwkmh HermannCHEMISTRY 2011-04-28 16:50:10392Ndxxdkkt TaggosgTMHGTNGKP0034-27-85 16:50:001.4[facility] AwksrpgYZISJPYCF0409-82-33 16:50:0011.6[facility] KunvcbnMPVKMENAAP6917-92-60 16:50:00 Test Item Value Reference Range Interpretation Comments Pat Od Value (test code = Pat Od 0.084 1 Value) [facility] ErypdjuOIDNPQZWGD6596-57-49 16:50:00 Test Item Value Reference Range Interpretation Comments Pos CO Value (test code = Pos CO 0.376 1 Value) [facility] RiwvpitKKNFOXFIXE5471-98-06 16:50:00Negative (04/28/2011 10:50:00) [facility] XiesmufBEZGSDISXO2924-69-49 16:50:00Normal (04/28/2011 10:50:00) [facility] [employer] BANK YAHQNQS6400-28-00 10:52:00Product available (04/28/2011 04:52:00)[facility] [employer] BANK VNRLREI8015-50-52 10:52:00 Negative (04/28/2011 04:52:00)[facility] KjnmupoMYQSYXMTK5432-53-21 08:40:000.70 [facility] FutdsxpCVLJHVMOI7781-94-19 08:40:004.9[facility] HermannCHEMISTRY 2011-04-28 08:40:85879Sdrdxngk QhyqimtYVFYVSDWG3791-14-79 08:40:49945Sxyrwcjb AezlfseWTDDRLMPQ3809-21-73 08:40:003.7[facility] IqmzncpKRMEVFKDF9956-89-18 19:22:0024.0[facility] DfhonlwZTMGKNKRNQ5463-19-12 19:22:00Positive *ABN*(02/17/2011 14:22:00) ??[facility] VkjgewlJTSKEVMYDO4483-98-63 19:22:001:40 *ABN*(02/17/2011 14:22:00) [facility] DUUTYPN7008-11-58 15:42:14137.0[facility] HermannBEDSIDE GLUCOSE OJIQMKV1024-20-46 12:42:40446.0 [facility] LnuikgxUNSAGCLNH9611-62-13 09:15:002.3[facility] HermannCHEMISTRY 2011-02-17 09:15:0010.0[facility] SgyjgweTIDXLJVEJ0692-21-76 09:15:000.5[facility] XlnztlvGVMGMOWBY4558-25-29 09:15:0047.0[facility] MkdnhxfPUDKMQEEX4954-28-30 09:15:0026.0[facility] RljrvshUQXFYSQSN9301-43-78 09:15:007.0[facility] XNMWDOUXY8247-72-73 09:15:008.5[facility] KoleyapIYPPGAPLZ3684-55-43 09:15:0030.0 [facility] TruiiflQSJYGBXJG7582-33-27 09:15:94163.0[facility] HermannCHEMISTRY 2011-02-17 09:15:004.5[facility] DadoxkjVZXNSKDWI9237-78-59 09:15:002.9[facility] ZtcdchhJYCEUUXBD6528-95-04 09:15:0016.0[facility] KrayauhOFTZBTXMJ9570-22-02 09:15:05711.0[facility] WkywnvgYQHLVPAWN6597-67-18 09:15:001.2[facility] ANVTLNIOP0258-15-99 09:15:25323.0[facility] KsmxhdcNNLKQBKQV7281-58-62 09:15:00 Test Item Value Reference Range Interpretation Comments A/G Ratio (test code = A/G Ratio) 0.7 1 0.7-1.6 N [facility] SqidkqbTXWPBMMFQ0070-28-68 09:15:004.1[facility]annCHEMISTRY 2011-02-17 09:15:00 Test Item Value Reference Range Interpretation Comments B/C Ratio (test code = B/C Ratio) 13.0 1 6-25 N [facility] FtmenzuMGTLMPODN8135-82-92 09:15:0012.5[facility] HermannCHEMISTRY 2011-02-17 09:15:003.2[facility] UfynscnFGERPCKOTA2395-12-93 09:15:17664.0[facility] WetksfeHBGEZQNXTE2781-66-55 09:15:009.7[facility] EfskmuwJNDRBWLBPX5426-26-23 09:15:0014.1[facility] EagfhnaANZEKLSPYE8348-31-60 09:15:004.65[facility] HTVOUAPPEH9543-77-40 09:15:0015.1[facility] LiuqryzYQYAAVDSOA9652-72-55 09:15:00 8.9[facility] MjzijoyFQOXMZMLYY3179-51-72 09:15:0042.5[facility] HermannHEMATOLOGY 2011-02-17 09:15:0091.4[facility] FdwjrqeSOCZGJGSDY2446-44-31 09:15:0033.3[facility] OtdfiytEKJEDIOKTI0906-91-29 09:15:00 Test Item Value Reference Range Interpretation Comments MCH (test code = MCH) 30.4 pg 27.0-31.0 N [facility] AzlpjevRCKNUHYAJM6542-81-30 09:15:007.8[facility] HermannHEMATOLOGY 2011-02-17 09:15:000.8[facility] AqparwqVZDRCKPMPO0868-95-05 09:15:000.2[facility] GkdttihYSKIKJMQOE9391-63-27 09:15:000.0[facility] YdlifbcIVKNCEBLQS7564-54-72 09:15:000.0[facility] VfujwtlGKWKJHHZAH0436-30-43 09:15:009.5[facility] ZBSOKSGJYN4421-55-24 09:15:000.2[facility] NhcqwegPNWBDXFNJE1633-85-82 09:15:00 88.2[facility] SiadwknDAKUEMPJPK4231-61-99 09:15:000.3[facility] HermannHEMATOLOGY 2011-02-17 09:15:001.8[facility] HermannBEDSIDE GLUCOSE UTQFQQV6725-43-82 01:39:00 155.0[facility] EnzeuoeZYJLZSAHLQ4096-39-79 10:05:00 Test Item Value Reference Range Interpretation Comments INR (test code = INR) 1.07 1 0.85-1.17 N [facility] CenterYbubxfxBBBJCGGTFX4415-64-41 10:05:00 Test Item Value Reference Range Interpretation Comments PTT (test code = PTT) 28.8 s 22.9-35.8 N [facility] CenterLdpgzlyJCKDWJXGPV4156-25-88 10:05:00 Test Item Value Reference Range Interpretation Comments PT (test code = PT) 13.9 s 12.0-14.7 N [facility] YiilkxkVZSEPAKHF2359-63-09 09:15:002.8[facility] HermannCHEMISTRY 2011-02-16 09:15:0019.0[facility] CxaxremUOJGHSTFY8375-99-37 09:15:008.1[facility] RrizareTSXDCOWLY0092-82-56 09:15:006.4[facility] YfovachLZJNWSDMK9817-41-11 09:15:0027.0[facility] IbtwhymNUFONCIUF9253-09-75 09:15:002.7[facility] EXBXDCHDL9515-41-08 09:15:005.0[facility] JqjshsrKCWFJGZKI5144-83-84 09:15:000.4 [facility] SppmgxsUCAMJXNRZ8839-60-98 09:15:0038.0[facility] HermannCHEMISTRY 2011-02-16 09:15:0093.0[facility] IpujqzyLULUSXRYB9341-95-96 09:15:003.6[facility] CnzzjdtNEKZCAKRR9910-77-62 09:15:71456.0[facility] FbrjcfzBPFYGOZJP5015-10-38 09:15:47665.0[facility] JpcqhbdAKZVYHHDM4518-06-04 09:15:0019.0[facility] IHIOTNJTU8068-42-97 09:15:001.2[facility] MerdvreVSKTIATNN6845-47-28 09:15:00 Test Item Value Reference Range Interpretation Comments A/G Ratio (test code = A/G Ratio) 0.7 1 0.7-1.6 N [facility] WdeuijdFDPZKTICL1405-91-47 09:15:003.7[facility] HermannCHEMISTRY 2011-02-16 09:15:00 Test Item Value Reference Range Interpretation Comments B/C Ratio (test code = B/C Ratio) 16.0 1 6-25 N [facility] NhabsxfTAGNTQWFV9999-02-67 09:15:0011.6[facility] HermannCHEMISTRY 2011-02-16 09:15:002.3[facility] EramoqdJQDYKEESOM8994-60-19 09:15:0018.7[facility] LiqgaguPSMFVBPDSP5611-35-34 09:15:0075.9[facility] QyrawqrECLZQARMTB8249-91-17 09:15:000.0[facility] TltoadnIPZCEEJRBE1051-33-64 09:15:000.1[facility] YKUEREQIPB3166-10-67 09:15:001.8[facility] BquqcmvHWIHWGEICW7871-65-94 09:15:000.4 [facility] PsswhuvMYFCTONREO2066-90-69 09:15:000.2[facility] HermannHEMATOLOGY 2011-02-16 09:15:007.3[facility] PocprmdUSYXFBBAWQ1171-23-51 09:15:000.9[facility] KfrmzlrMFLWEOKQMI3271-87-19 09:15:004.3[facility] SxrcpugXQFIYCMYYR5911-82-22 09:15:0013.0[facility] TbyyhfjRWJHNINJWM8142-32-83 09:15:0038.5[facility] OUVCWSWSWZ8981-79-31 09:15:004.23[facility] RdytrerPUJRCTTYPE6893-52-63 09:15:00 9.6[facility] MxhjjskLXNIEIDAGB0484-49-23 09:15:00 Test Item Value Reference Range Interpretation Comments MCH (test code = MCH) 30.7 pg 27.0-31.0 N [facility] AxdbgsoDWNSMGVFVH8054-45-53 09:15:0091.1[facility] HermannHEMATOLOGY 2011-02-16 09:15:0014.6[facility] QhwotenPBLDLVDBTB5969-85-67 09:15:0033.6[facility] SkfyljwMCNHYIPSSR9787-12-43 09:15:11239.0[facility] IwecyaqFGJFPNAWIY8322-60-37 09:15:009.8[facility] HermannBACTERIAL - LHBAQOIP2959-93-45 16:30:00Negative (02/15/2011 11:30:00) ??[facility] HermannMICRO MISC - BOCJVGKV1023-25-06 16:30:00 Negative 1(02/15/2011 11:30:00) ??[facility] DsvrfnqDCDDZPTSN5836-78-61 11:10:00 0.9[facility] TcndkdtCQHYUGBUE5326-46-41 11:10:0032.0[facility] HermannCHEMISTRY 2011-02-15 11:10:000.15[facility] EocxsbuSFCYCHVBMW2440-74-33 11:10:000.0[facility] AumghukSUCYYDCSDM0978-81-94 11:10:000.0[facility] BlqwszeZNWGXROXPA3818-26-34 11:10:000.8[facility] YmvdewnGFOHRDNUET5784-16-72 11:10:002.0[facility] EUBIJFLAKM1247-82-45 11:10:007.1[facility] PxbnrnlNCYEPFRSIC9475-84-33 11:10:000.5 [facility] YatpnlhNOWZUYVCNG2852-48-82 11:10:000.3[facility] HermannHEMATOLOGY 2011-02-15 11:10:007.8[facility] WejkurtMQUADFMKVB0518-40-21 11:10:0020.3[facility] SyhvuqgBCMXDYVNXD5588-85-02 11:10:0071.1[facility] EdwziqyPFBMRCLNGO3825-21-89 11:10:0010.0[facility] OafdoadVJDNJOVVLP5735-92-70 11:10:0091.5[facility] XSPLYGEKQB4590-05-37 11:10:0038.9[facility] KdxvhfhEUQDCWJHVW8593-24-71 11:10:00 4.25[facility] WxjgzqdLPSFASTWSN3830-71-43 11:10:0012.9[facility] HermannHEMATOLOGY 2011-02-15 11:10:0033.2[facility] TzccbggMBMSDYNZGG3482-95-08 11:10:00 Test Item Value Reference Range Interpretation Comments MCH (test code = MCH) 30.4 pg 27.0-31.0 N [facility] VqxujztVJQCXRLOHX3099-11-47 11:10:0010.0[facility]annHEMATOLOGY 2011-02-15 11:10:0014.9[facility] ZqjgiiaUPKQOILHVY5330-39-28 11:10:94307.0 [facility]annVIRAL - SKMSFDCB6867-66-18 05:20:00Negative 5(02/15/2011 00:20:00) ??[facility] HermannVIRAL - LJLCNSBS0290-82-62 05:20:00Negative (02/15/2011 00:20:00) ??[facility] EnhagbbWPTMEUZWF7078-77-67 05:07:0037.0[facility] VnjnjkpUSYFXMIDV5424-12-87 05:07:000.15[facility] LbneyhoAHZBBPXVZ1108-10-67 00:24:000.14[facility] FysxzlzANCOOCDME6365-86-75 00:24:0048.0[facility] [place] SSLVKIKCC6940-56-17 00:24:005.0[facility] WbsrvayLMKJBGQWH5942-42-49 00:24:0040.0 [facility] MxdzdctLEZODSBKM9461-01-45 00:24:000.5[facility] HermannCHEMISTRY 2011-02-15 00:24:003.3[facility] SmaktyvBNAHILOYY5950-72-20 00:24:0016.0[facility] DwoowbyTNRWIXJPS4095-07-24 00:24:008.4[facility] PpjbldwRPTNNEOAX9846-53-73 00:24:007.5[facility] SbtogjcQISRFQRNR0332-01-28 00:24:0027.0[facility] GGQGJECTC5290-18-20 00:24:21345.0[facility] GvarxfjISRPMTVYP4961-25-68 00:24:004.2 [facility] BoxdsaaCGKEDIMBM3509-56-20 00:24:00 Test Item Value Reference Range Interpretation Comments A/G Ratio (test code = A/G Ratio) 0.8 1 0.7-1.6 N [facility] XpgnkpqIMXTLILBX8521-97-68 00:24:0013.9[facility] HermannCHEMISTRY 2011-02-15 00:24:00 Test Item Value Reference Range Interpretation Comments B/C Ratio (test code = B/C Ratio) 15.0 1 6-25 N [facility] KjdomghUFWFIPPMU5716-17-16 00:24:003.9[facility] HermannCHEMISTRY 2011-02-15 00:24:13993.0[facility] ZkhhsubWRHJHBPQH3757-58-37 00:24:001.4[facility] ViidfqcIXTALNZDK3948-82-74 00:24:0021.0[facility] OzajzwgJRYOTJAWP2005-63-36 00:24:47271.0[facility] VmrbqbjUKESQLIPM3354-83-17 23:50:28478.0[facility] ZANYXKOFAO2936-26-28 23:50:00 Test Item Value Reference Range Interpretation Comments PT (test code = PT) 14.2 s 12.0-14.7 N [facility]EhhmsxdOVGQZKWGWX1694-74-63 23:50:00 Test Item Value Reference Range Interpretation Comments PTT (test code = PTT) 22.7 s 22.9-35.8 L [facility] CenterTysoyigEQGQOBDDYT9529-95-88 23:50:00 Test Item Value Reference Range Interpretation Comments INR (test code = INR) 1.1 1 0.85-1.17 N [facility] CenterJnmrfhjBJWOYFQCHQ7383-65-18 23:50:000.58[facility] 2011-02-14 23:50:00Normal (02/14/2011 18:50:00) ??[facility]annHEMATOLOGY 2011-02-14 23:50:00Normal (02/14/2011 18:50:00) ??[facility]
--- OUTSIDE RECORDS SUMMARY | 2020-06-04 17:01 | XMS REPORT | Continuity of Care Document ---
:1935 Author Care Team Providers Name Role Phone DO DMITRY GREENE Primary Care Physician Allergies, Adverse Reactions, Alerts Allergen Type Severity Reaction Last Verified Status Updated Sulfacetamide Allergy Severe April Yes Active 2010 Sulfamethoxazole / Allergy Unknown DIZZINESS June Yes A ctive trimethoprim 2016 Clopidogrel Allergy Unknown June Yes Active 2015 Medications Medication Status Dose Units Route Sig Qty Days Start End Instruct ions Date Date Albuterol/Ipra Active 1 PUFF PO Four tropium Times (Combivent Daily Respimat *) 1 Ea INH Allopurinol Active 1 TAB PO Daily 30 (Zyloprim *) 100 Mg TAB Amiodarone Hcl Active 200 MG PO Daily (Pacerone 200 Mg*) 200 Mg TAB Apixaban Active 2.5 MG PO Twice A 60 30 (Eliquis *) Day 2.5 Mg TAB Aspirin Active 81 MG PO Daily (Aspirin *) 81 Mg CHW Atorvastatin * Active 1 TAB PO Daily 30 (Lipitor *) 40 Mg TAB Azithromycin Active 250 MG PO Once June (Zithromax *) Daily , 250 Mg TAB for 2019 Pneumon 2:48pm ia Azithromycin Active 250 MG PO Once 4 START ON (Zithromax *) Daily r , AY 250 Mg TAB for - 201901/27/20 * 5:20pm Calcitriol Active 0.25 MCG PO Every (Calcitriol *) Wednesday 0.25 Mcg CAP Cefdinir Active 1 CAP PO Twice A 10 14 June (Omnicef*) 300 Day for , Mg CAP Pneumon 2019 ia 2:48pm Cephalexin * Active 500 MG PO Twice A 14 16 June (Keflex 500 Mg Day for , *) 500 Mg CAP Infecti 2020 on 5:37pm Docusate Active 50 MG PO Twice A Sodium (Stool Day Softener 100 Mg *) 100 Mg CAP Famotidine Active 20 MG PO Twice A 60 06 January (Pepcid *) 20 Day for , Mg TAB Reflux 2019 3:33pm Furosemide Active 40 MG PO Daily (Lasix 40 Mg*) 40 Mg TAB Gabapentin Active 200 MG PO Twice A (Neurontin *) Day 100 Mg CAP Hydrocodone-Ac Active 1 TAB PO Every 8 etaminophen Hours 10/325MG * As ([place] Needed 10/325MG *) 1 as Tab TAB needed for Pain Levothyroxine Active 50 MCG PO Before Sodium Breakfa (Synthroid *) st 50 Mcg TAB Losartan Active 1 TAB PO Daily 30 Potassium (Cozaar 100 Mg *) 100 Mg TAB Metoprolol Active 25 MG PO Twice A Tartrate Day (Lopressor *) 25 Mg TAB Potassium Active 1 TAB PO Daily March Chloride for , (K-Dur *) 10 Chf, On 2018 Meq TABCR Lasix 1:08pm Allopurinol Discontinu 100 MG PO Once Februar (Zyloprim *) ed Daily y , 100 Mg TAB 2016 Alprazolam Discontinu 1 TAB PO Bedtime 08 March (Xanax 0.5 ed , Mg*) 0.5 Mg 2017 TAB Amiodarone Hcl Discontinu 200 MG PO Daily Octobe r (Cordorone *) ed , 200 Mg TAB 2018 Amlodipine Discontinu 1 TAB PO Daily 30 Februar Besylate ed y , (Norvasc *) 10 2017 Mg TAB Amoxicillin/Cl Discontinu 875 MG PO Daily Januar y avulanate ed 16, Potassium 2018 (Augmentin *) 875 Mg TAB Amoxicillin/Cl Discontinu 1 TAB PO Twice A Febr uar avulanate ed Day y , Potassium 2015 (Augmentin *) 875 Mg TAB Apixaban Discontinu 2.5 MG PO Twice A 60 March (Eliquis *) 5 ed Day for , , Mg TAB Afib 2016 2017 10:46am Aspirin Discontinu 325 MG PO Every June Februar ed 24 28th, y 26th, Hours 2015 2016 2:03pm Carvedilol Discontinu 1 TAB PO Twice A 60 May (Coreg *) 25 ed Day 16th, Mg TAB 2019 Carvedilol Discontinu 1 TAB PO Twice A 60 March er (Coreg *) 6.25 ed Day for , 21st, Mg TAB Chf 2016 2017 10:46am Carvedilol Discontinu 1 TAB PO Twice A 180 Novembe (Coreg *) 25 ed Day r 1st, Mg TAB 2017 Carvedilol Discontinu 12.5 MG PO Twice A Februar (Coreg *) 12.5 ed Day y 26, Mg TAB 2017 Colchicine Discontinu 1 TAB PO Twice A 06 December (Colcrys) 0.6 ed Day as , Mg TAB needed 2018 for Gout Pain Colchicine Discontinu 1 TAB PO Daily 30 uar (Colcrys) 0.6 ed y 25th, Mg TAB 2016 Furosemide Discontinu 1 TAB PO Daily 30 08 April Februar (Lasix *) 40 ed for Chf 5th, y 8th, Mg TAB 2018 2019 1:08pm Furosemide Discontinu 20 MG PO Twice A 60 March Novem be (Lasix 20 Mg*) ed Day for 1st, r 16th, 20 Mg TAB Chf 2016 2017 10:46am Furosemide Discontinu 40 MG PO Twice A Novembe (Lasix 40 Mg*) ed Day r 1st, 40 Mg TAB 2016 Gabapentin Discontinu 300 MG PO Once Februar (Neurontin *) ed Daily y , 300 Mg CAP At 2017 Bedtime Hydralazine Discontinu 50 MG PO Three Februar Hcl ed Times A y , (Apresoline *) Day 2016 50 Mg TAB Hydralazine Discontinu 1 TAB PO Three 90 Februar Hcl ed Times A y , (Apresoline *) Day 2015 50 Mg TAB Hydroco/Apap Discontinu 1 TAB PO Every 8 90 Novemb e ed Hours r 1st, As 2017 Needed Losartan Discontinu 1 TAB PO Daily 30 Novembe Potassium ed r 1st, (Cozaar *) 100 2017 Mg TAB Meloxicam Discontinu 1 TAB PO Daily 30 November (Mobic *) 15 ed for , , Mg TAB Inflamm 2018 2019 ation 5:25pm Methocarbamol Discontinu 1 TAB PO Twice A 60 November (Robaxin 750 ed Day for , , Mg *) 750 Mg Muscle 2019 2019 TAB Spasm 5:25pm Nitrofurantoin Discontinu 1 CAP PO Twice A 26 November * (Macrobid *) ed Day , 100 Mg CAP 2018 Pantoprazole Discontinu 40 MG PO Daily Februar Sodium ed y , (Protonix Ec 2017 *) 40 Mg TAB Pregabalin Discontinu 50 MG PO Daily March (Lyrica 50 Mg ed for , , *) 50 Mg CAP Neuropa 2017 2018 thy 10:46am Pregabalin Discontinu 1 CAP PO Twice A 60 Novem (Lyrica 200 Mg ed Day r , *) 200 Mg CAP 2017 Pregabalin Discontinu 50 MG PO Daily Februar (Lyrica 50 Mg ed y , *) 50 Mg CAP 2015 Rivaroxaban Discontinu 15 MG PO Twice A November (Xarelto *) 10 ed Day , Mg TAB 2019 Rivaroxaban Discontinu 20 MG PO One Juneua r (Xarelto *) 20 ed Dose At , y , Mg TAB 1699 2015 2016 2:03pm Sennosides Discontinu 1 TAB PO Twice A 40 Februar (Senokot *) ed Day y , 8.6 Mg TAB 2016 Tamsulosin Hcl Discontinu 1 CAP PO Once r (Tamsulosin ed Daily , Hcl 0.4 Mg At 2017 (Flomax) *) Bedtime 0.4 Mg CAP Tramadol/Apap Discontinu 1 TAB PO Every 6 November * (Ultracet ed Hours 14, 23, 37.5/325 Mg *) As 2018 2018 1 Tab TAB Needed 5:25pm for Pain Warfarin * Discontinu 1 MG PO Every May (Jantoven 1 ed Other 16, Mg*) 1 Mg TAB Day 2018 Warfarin * Discontinu 2.5 MG PO Daily May (Jantoven 2.5 ed 16, Mg*) 2.5 Mg 2018 TAB Problems Active Problems Medical Problem Onset Date Status Gouty arthritis Active Acute gouty arthritis Active Atrial fibrillation with tachycardic Act katerina ventricular rate Atrial fibrillation with tachycardic Act katerina ventricular rate Gouty arthritis Active Acute right hip pain Active Arthritic-like pain Active Elevated troponin Active Chest pain Active CVA (cerebral vascular accident) Active HTN (hypertension) Active Tachycardia Active CKD (chronic kidney disease) Active HLD (hyperlipidemia) Active Arrhythmia Active Ventricular pacing seen on Active electrocardiogram TIA (transient ischemic attack) Active Chronic renal disease Active Asbestos exposure Active Asbestosis Active Atypical chest pain Active UTI (urinary tract infection) Active Flank pain, acute Active Chronic back pain Active CHF (congestive heart failure) Active A-fib Active Anxiety Active Left shoulder pain Active ARF (acute renal failure) Active Near syncope February, Active Hypotension Active Pneumonia Active Inactive/Resolved Problems Medical Problem Onset Date Status Pulmonary congestion Resolved Renal insufficiency Resolved CHF NYHA class I (no symptoms from Resol patrick ordinary activities) Peripheral edema Resolved Acute rhinosinusitis Resolved Syncope Resolved Hx pulmonary embolism Resolved Altered mental state Resolved DVT (deep venous thrombosis) Resolved Stage II pressure ulcer of sacral Resolv ed region Anticoagulation adequate with Resolved anticoagulant therapy Superficial bruising of abdominal Resolv ed wall Arm bruise Resolved Cholelithiasis Resolved Urinary tract infection with pyuria Reso lved Right-sided chest wall pain Resolved Muscle pain Resolved Hematuria Resolved Steroid side effects Resolved Renal insufficiency Resolved Dyspnea Resolved Trapezius strain Resolved Cardiac volume overload Resolved Chronic low back pain Resolved Non-cardiac chest pain Resolved Left-sided chest wall pain Resolved Chronic CHF (congestive heart Resolved failure) CHD (congenital heart disease) Resolved CAD (coronary artery disease) Resolved SOB (shortness of breath) Resolved Lower extremity edema Resolved CHF exacerbation Resolved Lower GI bleed Resolved CHF exacerbation Resolved Pneumonia Resolved Ulcer of toe of left foot Resolved Trapezius muscle spasm Resolved Chest discomfort Resolved Neck arthritis Resolved Dizziness Resolved 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 cardiac rhythm insufficient to support life Bronchitis Resolved Bright red rectal bleeding Resolved Hematuria Resolved Abdominal pain Resolved Flank pain Resolved Procedures Procedure Date Performed Status EMERGENCY DEPT VISIT January 26, [address] NECK SPINE W/O DYE January 26, 2020 completed X-RAY EXAM CHEST 1 VIEW January 26, 2020 completed COMPLETE CBC W/AUTO DIFF WBC January 26, 2020 completed CREATINE MB FRACTION January 26, 2020 completed ASSAY OF CK (CPK) January 26, 2020 completed C-REACTIVE PROTEIN January 26, 2020 completed LACTATE (LD) (LDH) ENZYME January 26, 2020 completed ASSAY OF MAGNESIUM January 26, 2020 completed PROTHROMBIN TIME January 26, 2020 completed THROMBOPLASTIN TIME PARTIAL January 26, 2020 completed URINALYSIS AUTO W/SCOPE January 26, 2020 completed ROUTINE VENIPUNCTURE January 26, 2020 completed ASSAY OF TROPONIN QUANT January 26, 2020 completed COMPREHEN METABOLIC PANEL January 26, 2020 completed ASSAY OF NATRIURETIC PEPTIDE January 26, 2020 completed RETICULATED PLATELET ASSAY January 26, [address] HEAD/BRAIN W/O DYE January 26, 2020 completed ELECTROCARDIOGRAM TRACING January 26, 2020 completed Covid-19 lab test non-cdc January 26, 2020 completed OUTPT CLINIC SPCIMEN COLLECT January 26, 2020 completed SARS-COV, COVID-19 X-RAY EXAM OF FOOT February 05, 2020 completed EMERGENCY DEPT VISIT February 14, 2020 completed X-RAY EXAM CHEST 1 VIEW February 14, 2020 completed OCCULT BLOOD FECES February 14, 2020 completed COMPLETE CBC W/AUTO DIFF WBC February 14, 2020 completed CREATINE MB FRACTION February 14, 2020 completed ASSAY OF CK (CPK) February 14, 2020 completed ASSAY OF LIPASE February 14, 2020 completed PROTHROMBIN TIME February 14, 2020 completed THROMBOPLASTIN TIME PARTIAL February 14, 2020 completed ROUTINE VENIPUNCTURE February 14, 2020 completed ASSAY OF TROPONIN QUANT February 14, 2020 completed ASSAY OF TROPONIN QUANT February 14, 2020 completed COMPREHEN METABOLIC PANEL February 14, 2020 completed ASSAY OF NATRIURETIC PEPTIDE February 14, 2020 completed ELECTROCARDIOGRAM TRACING February 14, 2020 completed EMERGENCY DEPT VISIT March 11, [address] ABD & PELVIS W/O CONTRAST March 11, 2020 completed THER/PROPH/DIAG INJ IV PUSH March 11, 2020 completed TX/PRO/DX INJ NEW DRUG ADDON March 11, 2020 completed COMPLETE CBC W/AUTO DIFF WBC March 11, 2020 completed ASSAY OF LIPASE March 11, 2020 completed URINALYSIS AUTO W/SCOPE March 11, 2020 completed ROUTINE VENIPUNCTURE March 11, 2020 completed COMPREHEN METABOLIC PANEL March 11, 2020 completed X-RAY EXAM ABDOMEN 1 VIEW March 11, 2020 completed TX/PRO/DX INJ SAME DRUG CENTER MANAGER March 11, 2020 completed March 11, 2020 completed March 11, 2020 completed MORPHINE SULFATE INJECTION March 11, 2020 completed MORPHINE SULFATE INJECTION March 11, 2020 completed X-ray of chest, single view January 26, 2020 completed Computed tomography of head January 26, 2020 completed without contrast Computed tomography of cervical January 26, 2020 complet ed spine without contrast X-ray of chest, single view February 14, 2020 completed X-ray of abdomen, single view March 11, 2020 completed Computed tomography of abdomen and March 11, 2020 compl eted pelvis without contrast Computed tomography of abdomen and March 14, 2020 compl eted pelvis without contrast Relevant Diagnostic Tests and/or Laboratory Data Laboratory Results Test Date/Time Result Interpretation Reference Result Comment Performing Range Site White Blood March 4.5 4.0-12.3 [facility], [address] Count 2019 [facility] [place] [address] 2:30pm Red Blood Count March 3.79 3.80-5.80 [facility] , [address] 2019 [facility] [place] [address] 2:30pm Hemoglobin November 12.4 11.7-17.2 [facility], [address] 2019 [facility] [place] [address] 2:30pm Hematocrit November 39.0 35.0-51.0 [facility], [address] [facility] [address] 2019 [facility] [place] [address] 2:30pm Mean November 102.9 83-100 [facility], [address] [facility] Corpuscular 2019 [facility] [address] Volume 2:30pm Mean November 32.7 26.8-33.4 [facility], [address] [facility] Corpuscular 2019 [facility] [address] Hemoglobin 2:30pm Mean November 31.8 30-35 [facility], [address] [facility] Corpuscular 2019 [facility] [address] Hemoglobin 2:30pm Concent Red Cell March 15.4 12.0-14.0 [facility], [address] Distribution 2019 [facility] [address] Width 2:30pm Platelet Count March 108 175-450 [facility], [address] [facility] [address] 2019 [facility] [place] [address] 2:30pm Absolute February 2.4 [facility], [address] Immature 2019 [facility] [place] [address] Platelet 11:24am Fraction Immature February 2.4 0-8 [facility], [address] Platelet 2019 [facility] X [address] Fraction 11:24am Mean Platelet March 10.7 9.4-12.6 [facility], [address] Volume 2019 [facility] X [address] 2:30pm Neutrophils (%) March 65.9 44.7-82.4 [facility] , [address] (Auto) 2019 [facility] X [address] 2:30pm Immature March 0.2 0.0-0.4 [facility], [address] Granulocyte % 2019 [place] [address] (Auto) 2:30pm Lymphocytes (%) March 28.7 10.0-50.0 [facility] , [address] [facility] [address] (Auto) 2019 [facility] X [address] 2:30pm Monocytes (%) November 3.5 3.9-13.4 [facility], [address] ST (Auto) 2019 [facility] X [address] 2:30pm Eosinophils (%) March 1.5 0.0-6.4 [facility] , 104 (Auto) 2019 [facility] X [address] 2:30pm Basophils (%) March 0.2 0.2-1.2 [facility], 104 (Auto) 2019 [facility] X [address] 2:30pm Neutrophils # November 2.98 1.78-5.38 [facility], 104 (Auto) 2019 [facility] X [address] 2:30pm Absolute November 0.0 0.0-0.03 [facility], 104 Immature 2019 [facility] [place] [address] Granulocyte 2:30pm (auto Lymphocytes # November 1.3 1.32-3.57 [facility], 104 (Auto) 2019 [facility] X [address] 2:30pm Monocytes # March 0.16 0.30-0.82 [facility], [address] (Auto) [place] [address] 2:30pm Eosinophils # March 0.07 0.04-0.54 [facility], 104 (Auto) 2019 [facility] X [address] 2:30pm Basophils # March 0.01 0.01-0.08 [facility], 10 4 (Auto) 2019 [facility] X [address] 2:30pm Nucleated Red November 0 0-0.2 [facility], [address] [facility] Blood Cells % 2019 [place] [address] 2:30pm Nucleated Red November 0 0 [facility], [address] [facility] Blood Cells # 2019 [place] [address] 2:30pm Prothrombin February 11.1 10.3-12.3 THERAPEUTIC [facility], [address] Time 2019 LEVEL: 1.5 [place] [address] 11:24am 1.9 times normal range of PT Prothromb Time February 07.04 Recommended [facility], [address] International 2019 therapeutic [facility] [address] Ratio 11:24am range for patients receiving warfarin (coumadin) therapy: INR is 2.0 to 3.0Recommended range for patients with mechanical prosthetic heart valves: INR is 2.5 to 3.5 Activated October 22.7 22.5-37.0 [facility], 104 Partial [place] [address] Thromboplast 11:24am Time Urine Color November LIGHT [facility], 10 4 2019 [place] [address] 2:38pm Urine November CLEAR CLEAR [facility], 104 Appearance 2019 [place] [address] 2:38pm Urine Glucose November NEGATIVE NEGATIVE [facility], 104 (UA) 2019 [place] [address] 2:38pm Urine Bilirubin November NEGATIVE NEGATIVE [facility] , 104 [place] [address] 2:38pm Urine Ketones March NEGATIVE NEGATIVE [facility], 104 [place] [address] 2:38pm Urine Specific November 1.014 1.003-1.03 [facility] , 104 Albers 2019 0 [place] [address] 2:38pm Urine Blood March 1+ NEGATIVE [facility], 10 4 2019 (SMALL) [place] [address] 2:38pm Urine pH November 6.500 5-9 [facility], 104 [place] [address] 2:38pm Urine Protein March TRACE NEGATIVE [facility], 104 [place] [address] 2:38pm Urine November NORMAL 0.2-1.0 [facility], 104 Urobilinogen 2019 [facility] [place] [address] 2:38pm Urine Nitrate March NEGATIVE NEGATIVE [facility], 104 [place] [address] 2:38pm Urine Leukocyte November NEGATIVE NEGATIVE [facility] , 104 Esterase 2019 [place] [address] 2:38pm Urine RBC November 6-10 0-5 [facility], 104 [place] [address] 2:38pm Urine WBC November <1 0-5 [facility], 104 [place] [address] 2:38pm Urine November <1 0-5 [facility], 104 Epithelial 2019 [place] [address] Cells 2:38pm Urine Bacteria March None None [facility], 104 2019 [place] [address] 2:38pm Urine Casts March None None [facility], 10 4 2019 [place] [address] 2:38pm Urine Culture November NO [facility], 104 Reflexed [place] [address] 2:38pm Random Glucose March 101 82-115 [facility], 104 2019 [facility] [place] [address] 2:30pm Blood Urea March 22 8-23 [facility], 104 Nitrogen 2019 [facility] [place] [address] 2:30pm Serum March 279 280-300 [facility], 104 Osmolality 2019 [place] [address] 2:30pm Creatinine March 2.0 0.70-1.20 [facility], 104 2019 [place] [address] 2:30pm Glomerular March 38.71 GFR RESULTS ARE [facility], 104 Filtration Rate 2019 [place] [address] Calc 2:30pm mL/min/1.73m2.N ormal GFR: >60mL/minModera tely decreased GFR: 30-59 mL/minSeverely decreased GFR: 15-29 mL/minKidney Failure (or Dialysis): <15 mL/minThe calculated eGFR is not valid for patients younger than 18 years or older than 75 years. BUN/Creatinine March 11.0 12-20 [facility], 104 Ratio [place] [address] 2:30pm Sodium Level March 138 135-145 [facility], 1 04 2019 [facility] [place] [address] 2:30pm Potassium Level March 3.8 3.5-5.2 [facility] , 104 [place] [address] 2:30pm Chloride Level March 99 98-108 [facility], 104 2019 [facility] [place] [address] 2:30pm Carbon Dioxide March 29 21-32 [facility], 104 Level [place] [address] 2:30pm Anion Gap March 13.8 12-20 [facility], 104 2019 [facility] [place] [address] 2:30pm Calcium Level March 8.9 8.8-10.2 [facility], 104 2019 [facility] [place] [address] 2:30pm Magnesium Level January 2.0 1.6-2.4 [facility] , 104 2019 [facility] [address] 3:45pm Total Protein March 7.9 6.6-8.7 [facility], [address] [place] [address] 2019 [facility] X [address] 2:30pm Albumin November 3.5 3.5-5.2 [facility], [address] [place] [address] 2019 [facility] X [address] 2:30pm Globulin March 4.4 [facility], [address] [facility] 2019 [facility] X [address] 2:30pm Albumin/Globuli November 0.8 >1.0 [facility] , [address] [facility] n Ratio 2019 [facility] X [address] 2:30pm Total Bilirubin March 0.8 0.0-1.2 [facility] , [address] [place] [address] 2019 [facility] X [address] 2:30pm Aspartate Amino March 19 15-40 [facility] , [address] [place] [address] 2019 [facility] X [address] (AST/SGOT) 2:30pm Alanine March 12 0-41 [facility], [address] [place] [address] Aminotransferas 2019 [facility] [address]137 e (ALT/SGPT) 2:30pm Lipase March 12 13-60 [facility], [address] [place] [address] 2019 [facility] X [address] 11:41am Lactate January 243 135-225 [facility], [address] [place] [address] Dehydrogenase 2019 [place] [address] 3:45pm FL-Vss-U-Type February 1604 0-450 [facility], [address] [place] [address] Natriuretic 2019 [facility] [address] Peptide 11:24am C-Reactive Sherice 4.1 0.0-5.0 High [facility], [address] [place] [address] Protein High 2019 Sensitivity [facility] [address] Sensitivity 3:45pm C-Reactive Protein (CCRP) Expected Values: < 1.0 mg/L Low risk1.0 - 3.0 mg/L Moderate risk> 3.0 mg/L High riskTo convert CCRP to CRP for use as an inflammatory marker, divide the CCRP by 10Normal range for CRP 0.0 - 0.7 mg/dL Total Alkaline March 58 40-130 [facility], [address] [facility] Phosphatase 2019 [facility] 58823 2:30pm Creatine Kinase February 56 20-200 [facility] , [address] [place] [address] 2019 [facility] X [address] 11:24am Troponin I February < 0.30 0.0-0.5 Published [facility], 2019 clinical [facility] [place] [address] 1:48pm studies have shown elevations of cTnI in patients with myocardial injury, as seen in unstable angina pectoris, cardiac contusions, and heart transplants. Elevations have also been seen in patients with rhabdomyolysis and polymyositis.El evated troponin levels point to myocardial injury, but are not necessarily indicative of an ischemic mechanism. The term PR should be used when there is evidence of cardiac damage, as detected by marker proteins in a clinical setting consistent with myocardial ischemia. If the clinical circumstance suggests that an ischemic mechanism is unlikely, other causes of cardiac injury should be considered.For diagnostic purposes, the results should always be assessed in conjunction with the patient's medical history, clinical examination and other findings. Creatine Kinase February 1.5 0.0-3.6 DIAGNOSTIC [facility], [facility] 2019 CITERIA: [facility] [place] [address] 11:24am CKMB CKMB RELATIVE INDEX -----SUGGESTIVE OF NON-AMI < or = 5 N/AGRAY ZONE (INCONCLUSIVE) > 5 < or = 4SUGGESTIVE OF AMI >5 > 4 Diagnostic Imaging Reports Report Dictated Date/Time Dictated By Status January 26, 2020 KARRIE WEN MD completed 3:00pm Patient: JAVIER SUÁREZ MR#: [id number] 58 : 1935 Ordering DrShanice: RAVEN BOWIE MD Pt Status: [facility] ER Pt Location: ER Date/Time: 01/26/20 1421 Primary Care Physician: DAVID GREENE DO Technologist(s): AMELIA DELONG Procedure(s): [id number] RAD/CHEST 1 VIEW Signed EXAMINATION: XR CHEST 1 VIEW. INDICATION: 84-year-old male with short ness of breath. COMPARISON: Chest radiograph dated 12/30. FINDINGS: Mild cardiomegaly; a dual-lead pacemake r is noted implanted in the left chest wall. Mild calcified atherosclerotic dis ease of the thoracic aorta. Bronchial wall thickening. No evidence of consolid ation. No pleural effusion. No pneumothorax. No acute osseous abnormali ty. Visualized soft tissues are unremarkable. IMPRESSION: 1. Bronchial wall thickening which can be seen in the setting of bronchitis or atypical infection. 2. Mild cardiomegaly. Electronically signed by: Karrie Wen MD 01/26/2020 3:00 PM CDT Transcribed By: [employer] SIGNED < electronically signed by KARRIE WEN MD> [id number] KARRIE WEN MD January 26, 2020 DIANE JIMENEZ MD completed 3:03pm Patient: JAVIER SUÁREZ MR#: [id number] 58 : [address] RAVEN BOWIE MD Pt Status: REG ER Pt Location: ER Date/Time: 01/26/20 1427 Primary Care Physician: DAVID GREENE DO Technologist(s): AMELIA DELONG Procedure(s): [id number] CT/CT HEAD W/O CONTRAST Signed PROCEDURE(S): CT HEAD WITHOUT IV CONTRAS T ACCESSION(S): [id number] DATE OF EXAM: 01/26/2020 2:27 PM CDT EXAM: CT of the head without IV contras t. TECHNIQUE: Contiguous axial CT images o f the head (vertex to skull base) were obtained without the utilization of intr avenous iodinated contrast. This exam was performed according to our [facility] dose optimization program, and includes the following measures where ap plicable: automated exposure control, adjustment of the mAs and/or kVp accordi ng to patient size and/or exam, and an iterative reconstruction algorithm. HISTORY: DIZZINESS COMPARISONS: None. FINDINGS: Cerebral parenchyma: There is mild gen eralized cerebral volume loss, with prom inence of the ventricles and cortical knox lci. There is no evidence of acute ischemia. No intracranial hemorrhage is present. Ventricular system: No hydrocephalus o r midline shift. Extra axial spaces: No epidural, subdu ral, or subarachnoid hemorrhage. No basal cistern effacement. Visualized paranasal sinuses: The part ially visualized paranasal sinuses and mastoid air cells are clear. Visualized orbits: No ocular or retrob ulbar pathology. Calvarium and skull base: No fracture or other bone abnormality. Soft tissues: No abnormality. Other: None. IMPRESSION: No acute intracranial abnormality. Electronically signed by: Diane Jimenez MD 01/26/2020 3:03 PM CDT Transcribed By: JOAN KUMAR SIGNED < electronically signed by DIANE JIMENEZ MD> [id number] DIANE JIMENEZ MD January 26, 2020 DIANE JIMENEZ MD completed 3:06pm Patient: JAVIER SUÁREZ MR#: [id number] 58 : [address] RAVEN BOWIE MD Pt Status: REG ER Pt Location: ER Date/Time: 01/26/20 [facility] Primary Care Physician: DAVID GREENE DO Technologist(s): AMELIA DELONG Procedure(s): [id number] CT/CT CERVICAL SPINE W/O Signed EXAM DESCRIPTION: CT CERVICAL SPINE W/O CLINICAL HISTORY: 84 years Male, DIZZIN ESS, NECK PAIN COMPARISON: None. TECHNIQUE: Noncontrast CT images were o btained through the cervical spine. Coronal and sagittal reformats were crea shereen. This exam was performed according to our departmental dose optimization pr ogram, and includes the following measures where applicable: automated exp osure control, adjustment of the mAs and/or kVp according to patient size and /or exam, and an iterative reconstruction algorithm. FINDINGS: Cervical spine alignment is normal. Th ere is no evidence of traumatic malalignment. No acute fracture. There is no paraspinal edema or hematom a. There are moderate multilevel chronic c hanges of disc degeneration throughout the cervical spine which predominantly i ncludes disc height loss and anterior osteophyte formation. IMPRESSION: No evidence of acute cervical spine fra cture or malalignment. Electronically signed by: Diane Jimenez MD 01/26/2020 3:06 PM CDT Transcribed By: JOAN KUMAR SIGNED < electronically signed by DIANE JIMENEZ MD> [id number] DIANE JIMENEZ MD January 29, 2020 RUPALI CROUCH MD complete d 5:56pm Patient: JAVIER SUÁREZ MR#: [id number] 58 : 1935 Pt Location: M ER Date/Time: 01/26/20 Primary Care Physician: DAVID GREENE DO Signed [facility] Test Date: 2020-01-26 Pat Name: JAVIER Bhakta epartment: R oom: Gender: Male T echnician: AMM : 1935 R equested By: Roshni BOWIE Order Number: [id number] R amparo MD: Inez Childs.A.A.C Measurements Intervals A xis Rate: 101 P : 0 ID: 71 Q RS: -49 QRSD: 135 T : 108 QT: 420 QTc: 545 Interpretive Statements A-V dual-paced complexes w/ some inhibit ion No further analysis attempted due to pac ed rhythm Electronically Signed On 01-29-2020 17:56 :10 CDT by Rupali Crouch M.D. F.A.A.C Transcribed By: [employer] SIGNED <electronically signed by RUPALI CROUCH MD> [phone] RUPALI CROUCH MD February 05, 2020 KARRIE WEN MD completed 11:16am Patient: JAVIER SUÁREZ MR#: [id number] 58 : 1935 Ordering DrShanice: ENEDINA KWAN DPM Pt Status: REG CLI Pt Location: D X CTR Date/Time: 02/05/20 1033 Primary Care Physician: DAVID GREENE DO Technologist(s): RANDALL MOMIN Procedure(s): [id number] RADDX/FOOT 3 VIEWS LEFT Signed EXAMINATION: XR FOOT 3 OR MORE VIEWS. INDICATION: 84-year-old male with left second and third toe ulcers. COMPARISON: Left foot radiograph dated 06/18/2014. FINDINGS: No evidence of acute fracture or disloc ation. Flexion deformities of the second through fifth toes, limiting the evaluat ion of these toes. Scattered mild to moderate degenerative changes, most prom inently involving the great toe MTP and IP joints as well as the midfoot. Small posterior and plantar calcaneal enthesophytes. No aggressive osseous les ions. Bone mineralization is decreased. No ankle effusion. Calcified atheroscler otic disease. IMPRESSION: 1. Limited evaluation of the second th rough fifth toes due to flexion defor mities. With this limitation, no definit e osseous erosions are identified. However, if there is concern for osteomy elitis, consider MRI for further evaluation. 2. Cfyt-sp-wlkmogtf degenerative felipe es as described above. 3. Osteopenia. Electronically signed by: Karrie Wen MD 02/05/2020 11:16 AM CDT Transcribed By: [employer] SIGNED < electronically signed by KARRIE WEN MD> [id number] KARRIE WEN MD February 14, 2020 KARRIE WEN MD completed 11:48am Patient: JAVIER SUÁREZ MR#: [id number] 58 : 1935 Ordering DrShaniec: DAINA BRAUN Pt Status: REG ER Pt Location: ER Date/Time: 02/14/20 1103 Primary Care Physician: DAVID GREENE DO Technologist(s): SARAH DAMON Procedure(s): [id number] RAD/CHEST 1 VIEW Signed EXAMINATION: XR CHEST 1 VIEW. INDICATION: 84-year-old male with chest pain. COMPARISON: Chest radiograph dated 01/25. FINDINGS: Mild cardiomegaly; a dual-lead pacemake r is noted implanted in the left chest wall. Mild calcified atherosclerotic dis ease of the thoracic aorta. Bronchial wall thickening. No evidence of consolid ation. No pleural effusion. No pneumothorax. No acute osseous abnormali ty. Visualized soft tissues are unremarkable. IMPRESSION: No evidence of pneumonia or other acute cardiopulmonary abnormality. Electronically signed by: Karrie Wen MD 02/14/2020 11:48 AM CDT Transcribed By: [employer] SIGNED < electronically signed by KARRIE WEN MD> [id number] KARRIE WEN MD February 16, 2020 RUPALI CROUCH MD completed 5:37am Patient: JAVIER SUÁREZ MR#: [id number] 58 : 1935 Pt Location: ER Date/Time: 02/14/20 1103 Primary Care Physician: DAVID GREENE DO Signed [facility] Test Date: 2020-02-14 Pat Name: JAVIER Bhakta epartment: R oom: Gender: Male T echnician: dw : 1935 R equested By: Lb BRAUN Order Number: [id number] R amparo MD: Rupali Crouch M.D. F.A.A.C Measurements Intervals A xis Rate: 69 P : 0 ID: 70 Q RS: -80 QRSD: 159 T : 104 QT: 477 QTc: 511 Interpretive Statements Ventricular-paced rhythm No further analysis attempted due to pac ed rhythm Baseline wander in lead(s) V3,V4 Electronically Signed On 02-16-2020 5:37: 00 CDT by Inez Childs.A.A.C Transcribed By: [employer] SIGNED <electronically signed by RUPALI CROUCH MD> [phone] RUPALI CROUCH MD March 11, 2020 JOSE DE JESUS GERARD MD completed 1:09pm Patient: JAVIER SUÁREZ MR#: [id number] 58 : [address] JENNYFER RICO DNP, BANKRUPTCY ATTORNEY-C Pt Status: [facility] ER Pt Location: ER Date/Time: 03/11/20 1215 Primary Care Physician: DAVID GREENE DO Technologist(s): ERICKA BROWN Procedure(s): [id number] RAD/ABDOMEN 1 VIEW Signed Abdomen, 1 view. History: Right lower quadrant abdominal pain. Findings: Air is scattered throughout n ondilated small and large bowel. A 1.5 cm oval radiopaque structure is noted in the right lower quadrant. There are no masses. Degenerative changes are present within the lumbar spine, with postoperative changes at L5-S1. Bilatera l iliac stents are present as well as an IVC filter. IMPRESSION: Non-specific bowel gas pattern. Right l ower quadrant oval structure may represent ingested pill, but calcificati on such as appendicolith cannot be excluded. This may be further evaluated with CT. Electronically signed by: Jose De Jesus jones MD 03/11/2020 1:09 PM [employer] PROFESS[employer] Transcribed By: JOAN KUMAR SIGNED < electronically signed by JOSE DE JESUS GEARRD MD> [id number] JOSE DE JESUS GERARD MD March 11, 2020 JOSE DE JESUS GERARD MD completed 1:23pm Patient: JAVIER SUÁREZ MR#: [id number] 58 : [address] JENNYFER RICO DNP, BANKRUPTCY ATTORNEY-C Pt Status: REG ER Pt Location: ER Date/Time: 03/11/20 1248 Primary Care Physician: DAVID GREENE DO Technologist(s): KENYATTA RODRIGUEZ Procedure(s): [id number] CT/CT ABD & PELVIS W/O Signed CT of the abdomen and pelvis, without c ontrast, 03/11/2020. History: Right lower quadrant pain, rad iating from right flank. Comparison: Abdominal x-ray from [facility]. Technique: Multidetector CT scanning of the abdomen and pelvis was performed from the level of the lung bases to the inferior pubic rami without intravenous or oral contrast. Coronal and sagittal multiplanar reformations were obtained. RADIATION DOSE: Dose modulation, iterative reconst ruction, and/or weight based adjustment of the mA/kV was utilized to reduce the radiation dose to as low as reasonably achievable. Discussion: Examination is limited with out contrast. Lung bases: There is bibasilar atelecta sis. Abdomen: A 1.9 cm simple cyst is noted in the superior pole of the left kidney. The kidneys are otherwise unremarkable w ithout evidence of stones or hydronephrosis. There is no ureteral dil atation. Small stones are seen layering along th e dependent aspect of the gallbladder. There is no evidence of gallbladder wall thickening. The liver, biliary tree, spleen, pancreas, and adrenal glands are unremarkable. The abdominal aorta is within normal limits. Bilateral iliac ve ins since extending into the IVC are noted as well as an infrarenal IVC filte r. There is no bowel dilatation. The appen rafael is visualized and is normal. Oval- shaped radiopaque structure consistent w ith a pill is noted within the small bowel. Scattered colonic diverticula are present without evidence of adjacent inflammation. There is no evidence of ad enopathy or free fluid. Pelvis: The bladder, prostate, and semi nal vesicles are unremarkable. There is no evidence of free fluid or adenopathy. Bones and soft tissues: Degenerative ch anges are present throughout the lumbar spine without evidence of lytic or scler otic lesion. Advanced degenerative and postsurgical changes are noted within th e lumbar spine. IMPRESSION: 1. Cholelithiasis without evidence of g allbladder wall thickening. 2. Simple benign left renal cyst. No ev idence of nephrolithiasis or hydronephrosis. 3. Colonic diverticulosis without evide nce of diverticulitis. Otherwise unremarkable noncontrast exam. No eviden ce of appendicitis or bowel obstruction. 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 Advance Directives Advance Directive Response Recorded Date/Time Advance Directives No September 17, 2015 1:23p m Advance Directive on File No March 14, 2020 12:34pm Directive to Physicians/Living No September 17, 2015 1:23pm Will Health Care Proxy No September 17, 2015 1:23p m Organ Donor No September 17, 2015 1:23p m Medical Power of Refrigeration Systems Installer No September 17, 2015 1:23pm Encounters Encounter Location(s) Arrival/Admit Date Discharge/Depart Date Provider(s) Departed [place] March 14, 2020 March 14, 2020 PABLO CHANG Emergency Room [facility] 12:16pm 6:20pm Hemant GUERRERO Ctr Departed [place] March 11, 2020 March 11, 2020 RUPERTO STEVENS Emergency Room [facility] 11:00am 3:20pm Ctr Departed [place] February 14, 2020 February 14, 2020 TIARA MEDEIROS Emergency Room [facility] 10:57am 2:33pm Ctr Registered [place] February 04, JOCELIN KWAN [facility] 2019 10:27am DPM Ctr Departed [place] January 25, January 26, 2020 RAVEN BOWIE MD Emergency Room [facility] 2019 1:57pm 5:28pm Ctr Registered [place] January 24, JOCELIN KWAN [facility] 2019 10:15am DPM Ctr Assessments No Assessments Information Available Functional Status No Functional Status information available Goals Goals may be documented in an alternate section. Immunizations No Immunization Information Available Mental Status No Mental Status Information Available Medical Equipment No Medical Equipment Information available Insurance Providers Guarantor Javier Suárez Address [address] [facility] [address] Contact Info. Home Phone: Payer Policy Id Coverage Id Subscriber's Subscriber Effective Expi ration Name Id Date Date [place] [id number] Javier Suárez [id number] [facility] Plan of Treatment Future Tests Future scheduled test information is unavailable Pending Tests Pending diagnostic test information is unavailable Future Visits Future appointment information is unavailable Referrals to Other Providers Reason for Referral Start Provider Provider Contact Provider Address Referral Date Information JENNYFER RICO Work Phone: [address] [facility] DNP [facility] [address] Future Procedures Future procedure information is unavailable Future Medications Future medication information is unavailable Patient Instructions Shortness of Breath, Adult Managing Anxiety, Adult Hematuria, Adult Chronic Inflammatory Demyelinating Polyn europathy Aspirin, ASA oral tablets Social History Smoking Status Status Date of Observation Ex-smoker (finding) March 14, 2020 12:34pm Observation Status Observation Response Date of Response Stented coronary artery March 14 12:25pm Hx Substance Use Treatment No June 17, 2019 4:57pm Hx Alcohol Use No June 17, 2019 4 :57pm Hx Physical Abuse No March 14, 2020 1 2:34pm Assigned Sex Male Vital Signs No vital signs result information available.
--- OUTSIDE RECORDS SUMMARY | 2020-06-04 17:01 | XMS REPORT | Continuity of Care Document ---
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 Resolv ed cardiac rhythm insufficient to support life Bronchitis Resolved Bright red rectal bleeding Resolved Hematuria Resolved Abdominal pain Resolved Procedures Procedure Date Performed Status [...] completed ELECTROCARDIOGRAM TRACING February 14, 2020 completed X-ray of chest, single view [...] 11, 2020 compl eted pelvis without contrast Relevant Diagnostic Tests and/or Laboratory Data Laboratory Results Test Date/Time Result Interpretation Reference Result Comment Performing Range Site White Blood November 3.5 4.0-12.3 [facility], [address] Count 2019 [facility] X [address] 11:41am Red Blood Count March 3.98 3.80-5.80 [facility] , [address] [facility] 2019 [facility] X [address] 11:41am Hemoglobin March 12.9 11.7-17.2 [facility], [address] [facility] 2019 [facility] X 9[address] 11:41am Hematocrit March 40.6 35.0-51.0 [facility], [address] [facility] 2019 [facility] X [address] 11:41am Mean March 102.0 83-100 [facility], [address] [facility] Corpuscular 2019 [place] [address] Volume 11:41am Mean March 32.4 26.8-33.4 [facility], [address] [facility] Corpuscular 2019 [place] [address] Hemoglobin 11:41am Mean November 31.8 30-35 [facility], [address] [facility] Corpuscular 2019 [facility] [address] Hemoglobin 11:41am Concent Red Cell November 15.1 12.0-14.0 [facility], [address] [facility] [address] Distribution 2019 [place] [address] Width 11:41am Platelet Count March 103 175-450 [facility], [address] [facility] [address] 2019 [facility] X [address] 11:41am Absolute October 2.4 [facility], [address] [facility] [address] Immature 2019 [facility] X [address] Platelet 11:24am Fraction Immature February 2.4 0-8 [facility], [address] [facility] Platelet 2019 [facility] X [address] Fraction 11:24am Mean Platelet March 10.9 9.4-12.6 [facility], [address] [facility] [address] Volume 2019 [facility] X [address] 11:41am Neutrophils (%) March 67.1 44.7-82.4 [facility] , [address] [facility] [address] (Auto) 2019 [facility] X [address]887 11:41am Immature November 0.3 0.0-0.4 [facility], [address] Granulocyte % 2019 [facility] [address] (Auto) 11:41am Lymphocytes (%) March 27.5 10.0-50.0 [facility] , [address] [facility] [address] (Auto) 2019 [facility] X 01088 11:41am Monocytes (%) March 3.4 3.9-13.4 [facility], [address] [facility] [address] (Auto) 2019 [facility] X 41095 11:41am Eosinophils (%) March 1.1 0.0-6.4 [facility] , [address] [facility] [address] (Auto) 2019 [facility] X 87579 11:41am Basophils (%) March 0.6 0.2-1.2 [facility], [address] [facility] [address] (Auto) 2019 [facility] X 65102 11:41am Neutrophils # November 2.34 1.78-5.38 [facility], [address] [facility] [address] (Auto) 2019 [facility] X 29930 11:41am Absolute November 0.0 0.0-0.03 [facility], [address] [facility] Immature 2019 [facility] X [address] Granulocyte 11:41am (auto Lymphocytes # November 1.0 1.32-3.57 [facility], [address] [facility] (Auto) 2019 [facility] X 77940 11:41am Monocytes # November 0.12 0.30-0.82 [facility], 10 [address] [facility] [address] (Auto) 2019 [facility] X 43603 11:41am Eosinophils # November 0.04 0.04-0.54 [facility], [address] [facility] (Auto) 2019 [facility] X 79205 11:41am Basophils # November 0.02 0.01-0.08 [facility], 10 [address] [facility] [address] (Auto) 2019 [facility] X 37096 11:41am Nucleated Red November 0 0-0.2 [facility], [address] [facility] Blood Cells % 2019 [place] [id number] 11:41am Nucleated Red November 0 0 [facility], [address] [facility] Blood Cells # 2019 [facility] 85017 11:41am Prothrombin February 11.1 10.3-12.3 THERAPEUTIC [facility], [address] [place] [address] Time 2019 LEVEL: 1.5 to [place] [id number] 11:24am 1.9 times normal range of PT Prothromb Time February 07.04 Recommended [facility], [address] [place] [address] International 2019 therapeutic [place] [address] Ratio 11:24am range for patients receiving warfarin (coumadin) therapy: INR is 2.0 to 3.0Recommended range for patients with mechanical prosthetic heart valves: INR is 2.5 to 3.5 Activated February 22.7 22.5-37.0 [facility], [address] [facility] Partial 2019 [facility] X [address] Thromboplast 11:24am Time Urine Color March LIGHT [facility], 10 4 [facility] 2019 YELLOW [facility] X 6[address] 11:43am Urine November CLEAR CLEAR [facility], [address] [facility] Appearance 2019 [place] [id number] 11:43am Urine Glucose March NEGATIVE NEGATIVE [facility], [address] [place] [address] (UA) 2019 [facility] X 40760 11:43am Urine Bilirubin November NEGATIVE NEGATIVE [facility] , [address] [place] [address] 2019 [facility] X 43051 11:43am Urine Ketones November NEGATIVE NEGATIVE [facility], [address] [place] [address] 2019 [facility] X 21082 11:43am Urine Specific November 1.015 1.003-1.03 [facility] , [address] [facility] [place] 2019 [address] [place] X [address] 11:43am Urine Blood November 1+ NEGATIVE [facility], 10 4 [facility] 2019 (SMALL) [place] X [address] 11:43am Urine pH March 7.500 5-9 [facility], [address] [facility] 2019 [place] X [address] 11:43am Urine Protein November TRACE NEGATIVE [facility], [address] [facility] 2019 [place] X [address] 11:43am Urine November NORMAL 0.2-1.0 [facility], [address] [facility] Urobilinogen 2019 [facility] [place] [address] 11:43am Urine Nitrate November NEGATIVE NEGATIVE [facility], [address] [facility] 2019 [place] X [address] 11:43am Urine Leukocyte November NEGATIVE NEGATIVE [facility] , [address] [facility] Esterase 2019 [place] X [address] 11:43am Urine RBC March 6-10 0-5 [facility], [address] [facility] 2019 [place] X [address] 11:43am Urine WBC November <1 0-5 [facility], [address] [facility] 2019 [place] X [address] 11:43am Urine November 1-5 0-5 [facility], [address] [facility] Epithelial 2019 [place] [address] Cells 11:43am Urine Bacteria March None None [facility], [address] [facility] 2019 Detected [place] X [address] 11:43am Urine Casts March None None [facility], 10 4 [facility] 2019 Detected [place] X [address] 11:43am Urine Culture March NO [facility], [address] [facility] Reflexed 2019 [place] X [address] 11:43am Random Glucose March 91 82-115 [facility], [address] [facility] 2019 [place] [address] 11:41am Blood Urea March 23 8-23 [facility], [address] [facility] Nitrogen 2019 [place] X [address] 11:41am Serum November 273 280-300 [facility], [address] [facility] Osmolality 2019 [place] [address] 11:41am Creatinine March 1.8 0.70-1.20 [facility], [address] [facility] 2019 [place] X [address] 11:41am Glomerular November 43.71 GFR RESULTS ARE [facility], [address] [facility] Filtration Rate 2019 REPORTED IN [facility] [address] Calc 11:41am mL/min/1.73m2.N ormal GFR: >60mL/minModera tely decreased GFR: 30-59 mL/minSeverely decreased GFR: 15-29 mL/minKidney Failure (or Dialysis): <15 mL/minThe calculated eGFR is not valid for patients younger than 18 years or older than 75 years. BUN/Creatinine March 12.8 12-20 [facility], [address] [facility] Ratio 2019 [facility] X 39752 11:41am Sodium Level March 135 135-145 [facility], 1 04 2019 [facility] X [address] 11:41am Potassium Level March 3.6 3.5-5.2 [facility] , [address] [facility] 2019 [facility] X [address] 11:41am Chloride Level March 98 98-108 [facility], [address] [facility] 2019 [facility] X 52651 11:41am Carbon Dioxide March 25 21-32 [facility], [address] [facility] Level 2019 [facility] X 78772 11:41am Anion Gap March 15.6 12-20 [facility], [address] [facility] 2019 [facility] X 9[address]54 11:41am Calcium Level March 9.1 8.8-10.2 [facility], [address] [facility] 2019 [facility] X 527[address] 11:41am Magnesium Level January 2.0 1.6-2.4 [facility] , [address] [facility] 2019 [facility] 59240 3:45pm Total Protein March 7.8 6.6-8.7 [facility], [address] [facility] 2019 [facility] X 74223 11:41am Albumin March 3.6 3.5-5.2 [facility], [address] [facility] 2019 [facility] X 17630 11:41am Globulin March 4.2 [facility], [address] [facility] 2019 [facility] X 74681 11:41am Albumin/Globuli March 0.9 >1.0 [facility] , [address] [facility] n Ratio 2019 [facility] X 17943 11:41am Total Bilirubin November 0.9 0.0-1.2 [facility] , [address] [facility] 2019 [facility] X 20826 11:41am Aspartate Amino March 25 15-40 [facility] , [address] [facility] Transf 2019 [facility] X 16242 (AST/SGOT) 11:41am Alanine March 20 0-41 [facility], [address] [facility] Aminotransferas 2019 [facility] 26717 e (ALT/SGPT) 11:41am Lipase March 21 13-60 [facility], [address] [facility] 2019 [facility] X 15409 11:41am Lactate January 243 135-225 [facility], [address] [place] [address] [facility] [address]15 3:45pm SV-Xua-D-Type February 1604 0-450 [facility], [address] [place] [address] Natriuretic 2019 [facility] 46252 Peptide 11:24am C-Reactive January 4.1 0.0-5.0 High [facility], [address] [place] [address] Protein High 2019 Sensitivity [facility] 459[address] Sensitivity 3:45pm C-Reactive Protein (CCRP) Expected Values: < 1.0 mg/L Low risk1.0 - 3.0 mg/L Moderate risk> 3.0 mg/L High riskTo convert CCRP to CRP for use as an inflammatory marker, divide the CCRP by 10Normal range for CRP 0.0 - 0.7 mg/dL Total Alkaline March 54 40-130 [facility], [address] [facility] Phosphatase 2019 [facility] 83225 11:41am Creatine Kinase February 56 20-200 [facility] , [address] [facility] 2019 [facility] X 70582 11:24am Troponin I February < 0.30 0.0-0.5 Published [facility], [address] [place] [address] 2019 clinical [facility] X 38155 1:48pm studies have shown elevations of cTnI in patients with myocardial injury, as seen in unstable angina pectoris, cardiac contusions, and heart transplants. Elevations have also been seen in patients with rhabdomyolysis and polymyositis.El evated troponin levels point to myocardial injury, but are not necessarily indicative of an ischemic mechanism. The term MA should be used when there is evidence [...] findings. Creatine Kinase February 1.5 0.0-3.6 DIAGNOSTIC [facility], [address] MB 2019 CITERIA: [facility] X 12127 11:24am CKMB CKMB RELATIVE INDEX -----SUGGESTIVE OF NON-AMI < or = 5 N/AGRAY ZONE (INCONCLUSIVE) > 5 < or = 4SUGGESTIVE OF AMI >5 > 4 Diagnostic Imaging Reports Report Dictated Date/Time Dictated By Status January 26, 2020 KARRIE WEN MD completed 3:00pm Patient: JAVIER SUÁREZ MR#: [id number] 58 : [address] RAVEN BOWIE MD Pt Status: [facility] ER Pt Location: ER Date/Time: 01/26/20 1421 Primary Care Physician: DAVID GREENE DO Technologist(s): AMELIA DELONG Procedure(s): [id number] RAD/CHEST 1 VIEW Signed EXAMINATION: XR CHEST [...] MD completed 3:03pm Patient: JAVIER SUÁREZ MR#: [id number] 58 : [address] RAVEN BOWIE MD Pt Status: REG ER Pt Location: [facility] Date/Time: 01/26/20 1427 Primary Care Physician: DAVID GREENE DO Technologist(s): AMELIA DELONG Procedure(s): [id number] CT/CT HEAD W/O CONTRAST Signed PROCEDURE(S): CT HEAD WITHOUT IV CONTRAS T ACCESSION(S): [id number] DATE OF EXAM: 01/26/2020 2:27 PM CDT EXAM: CT of the head without IV contras t. TECHNIQUE: Contiguous axial CT images o f the head (vertex to skull base) were obtained without the utilization of intr avenous iodinated contrast. This exam was performed according to our [facility] dose optimization program, and includes the following [...] MD 01/26/2020 3:03 PM CDT Transcribed By: [facility] SIGNED < electronically signed by DIANE JIMENEZ MD> [id number] DIANE JIMENEZ MD January 26, 2020 DIANE JIMENEZ MD completed 3:06pm Patient: JAVIER SUÁREZ MR#: [id number] 58 : 1935 Ordering DrShanice: RAVEN BOWIE MD Pt Status: [facility] ER Pt Location: M ER Date/Time: 01/26/20 1427 Primary Care Physician: DAVID GREENE DO Technologist(s): AMELIA DELONG Procedure(s): [id number] CT/CT CERVICAL SPINE W/O Signed EXAM DESCRIPTION: [...] MD 01/26/2020 3:06 PM CDT Transcribed By: [facility] SIGNED < electronically signed by DIANE JIMENEZ MD> [id number] DIANE JIMENEZ MD January 29, 2020 RUPALI CROUCH MD complete d 5:56pm Patient: JAVIER SUÁREZ MR#: [id number] 58 : 1935 Pt Location: ER Date/Time: 01/26/20 Primary Care Physician: DAVID GREENE DO Signed [facility] Test Date: 2020-01-26 Pat Name: JAVIER Bhakta epartment: R oom: Gender: Male T echnician: AMM : 1935 R equested By: Roshni BOWIE Order Number: [id number] R amparo MD: Rupali Crouch M.D. F.A.A.C Measurements Intervals A xis Rate: 101 P : 0 NH: 71 Q RS: -49 QRSD: 135 T : 108 QT: 420 QTc: 545 Interpretive Statements A-V dual-paced complexes w/ some inhibit ion No further analysis attempted due to pac ed rhythm Electronically Signed On 01-29-2020 17:56 :10 CDT by Inez Childs Transcribed By: Adly SIGNED <electronically signed by RUPALI CROUCH MD> [id number] [phone] RUPALI CROUCH MD February 05, 2020 KARRIE WEN MD completed 11:16am Patient: JAVIER SUÁREZ MR#: [id number] 58 : [address] ENEDINA KWAN DPTobi Pt Status: REG CLI Pt Location: D X [facility] Date/Time: 02/05/20 1033 Primary Care Physician: DAVID GREENE DO Technologist(s): RANDALL MOMIN Procedure(s): [id number] RADDX/FOOT 3 VIEWS LEFT Signed EXAMINATION: XR [...] elitis, consider MRI for further evaluation. 2. Lnou-fe-yclovljs degenerative felipe es as described above. 3. Osteopenia. Electronically signed by: Karrie Wen MD 02/05/2020 11:16 AM CDT Transcribed By: [facility] SIGNED < electronically signed by KARRIE WEN MD> [id number] KARRIE WEN MD February 14, 2020 KARRIE WEN MD completed 11:48am Patient: JAVIER SUÁREZ MR#: [id number] 58 : [address] DAINA BRAUN Pt Status: [facility] ER Pt Location: ER Date/Time: 02/14/20 1103 Primary Care Physician: DAVID GREENE DO Technologist(s): SARAH DAMON Procedure(s): [id number] RAD/CHEST 1 VIEW Signed EXAMINATION: XR CHEST [...] Karrie Wen MD 02/14/2020 11:48 AM CDT [address] [employer] Transcribed By: [facility] SIGNED < electronically signed by KARRIE WEN MD> [id number] KARRIE WEN MD February 16, 2020 RUPALI CROUCH MD completed 5:37am Patient: JAVIER SUÁREZ MR#: [id number] 58 : 1935 Pt Location: ER Date/Time: 02/14/20 1103 Primary Care Physician: DAVID GREENE DO Signed [facility] Test Date: 2020-02-14 Pat Name: JAVIER Bhakta epartment: R oom: Gender: Male T echnician: dw : 1935 R equested By: Lb BRAUN Order Number: [id number] Linsey christensen MD: Inez Childs.A.A.C Measurements Intervals A xis Rate: 69 P : 0 NH: 70 Q RS: -80 QRSD: 159 T : 104 QT: 477 QTc: 511 Interpretive Statements Ventricular-paced rhythm No further analysis attempted due to pac ed rhythm Baseline wander in lead(s) V3,V4 Electronically Signed On 02-16-2020 5:37: 00 CDT by Inez Childs Transcribed By: Adly SIGNED <electronically signed by RUPALI CROUCH MD> [phone] RUPALI CROUCH MD Health Concerns Health Concerns may be documented in an alternate section. Advance Directives Advance Directive Response Recorded Date/Time Advance Directives No September 17, 2015 1:23p m Advance Directive on File No March 11, 2020 11:14am Directive to Physicians/Living No September 17, 2015 1:23pm Will Health Care Proxy No September 17, 2015 1:23p m Organ Donor No September 17, 2015 1:23p m Medical Power of Spring Production Supervisor No September 17, 2015 1:23pm Encounters Encounter Location(s) Arrival/Admit Date Discharge/Depart Date Provider(s) Departed [place] March 11, 2020 March 11, 2020 RUPERTO STEVENS Emergency Room [facility] Medical 11:00am 3:20pm MD Ctr Departed [place] February 14, 2020 February 14, 2020 TAIRA MEDEIROS Emergency Room [facility] Medical 10:57am 2:33pm MD Ctr Registered [place] February 04, JOCELIN KWAN [facility] 2019 10:27am DPM Ctr Departed [place] January 25, January 26, 2020 RAVEN BOWIE MD Emergency Room [facility] 2019 1:57pm 5:28pm Ctr Registered [place] January 24, JOCELIN KWAN [facility] 2019 10:15am DPM Ctr Assessments No Assessments Information Available Functional Status No Functional Status information available Goals Goals may be documented in an alternate section. Immunizations No Immunization Information Available Mental Status No Mental Status Information Available Medical Equipment No Medical Equipment Information available Insurance Providers Guarantor Javier Suárez Address [address] [facility] [address] Contact Info. Home Phone: Payer Policy Id Coverage Id Subscriber's Subscriber Effective Expi ration Name Id Date Date [place] [id number] Javier Suárez [id number] Healthcare [facility] Careimp Plan of Treatment Future Tests Future scheduled test information is unavailable Pending Tests Pending diagnostic test information is unavailable Future Visits Future appointment information is unavailable Referrals to Other Providers Reason for Referral Start Provider Provider Contact Provider Address Referral Date Information JENNYFER RICO Work Phone: [address] COUNSELING AIDE-C DNP [facility] [address] Future Procedures Future procedure information is unavailable Future Medications Future medication information is unavailable Patient Instructions Shortness of Breath, Adult Managing Anxiety, Adult Hematuria, Adult Chronic Inflammatory Demyelinating Polyn europathy Aspirin, ASA oral tablets Social History Smoking Status Status Date of Observation Ex-smoker (finding) March 11, 2020 11:14am Observation Status Observation Response Date of Response Stented coronary artery March 14 12:25pm Hx Substance Use Treatment No June 17, 2019 4:57pm Hx Alcohol Use No June 17, 2019 4 :57pm Hx Physical Abuse No March 11, 2020 1 1:14am Assigned Sex Male Vital Signs No vital signs result information available.
[2020-06-04 19:17] LABS: Absolute Lymphocytes (CBC) 1.4 K/uL (0.7-4.9); Hematocrit 38.6 % (39.6-49.0); Lymphocytes % 31.9 % (15.3-44.8); MPV 9.7 fL (7.6-11.3); RBC Red Blood Cell Count 3.95 M/uL (4.33-5.43)
[2020-06-04 19:30] LABS: Albumin 3.4 g/dL (3.4-5.0); Bilirubin Direct 0.2 mg/dL (0-0.2); Bilirubin Total 0.5 mg/dL (0.2-1.0); Magnesium 2.2 mg/dL (1.8-2.4); Potassium 3.4 mmol/L (3.5-5.1); Protein, Total 8.7 g/dL (6.4-8.2); Troponin (Emerg Dept Use Only) 0.32 ng/mL (0.0-0.045)
[2020-06-04 19:33] LABS: Protime INR 1.15
--- NOTE | 2020-06-04 19:53 | RAD REPORT ---
EXAM DESCRIPTION: Reina Single View06/04/2020 7:33 pm CLINICAL HISTORY: Chest pain COMPARISON: June 2019 FINDINGS: Mild bilateral pulmonary opacities. The heart is mildly enlarged. Pacemaker leads are in p lace. IMPRESSION: Mild CHF
[2020-06-04] MEDS ORDERED: ONDANSETRON 4 MG/2 ML VIAL ONE (19:57)
[2020-06-04] MEDS ORDERED: MORPHINE 4 MG/ML SYR ONE (19:57)
[2020-06-04] MEDS ORDERED: ASPIRIN 81 MG CHEWABLE TABLET ONE (20:16)
--- NOTE | 2020-06-04 21:08 | EDPHYS ---
Physician Documentation [facility] Name: Tomas Suárez Age: 84 yrs Sex: Male : 1935 Arrival Date: 06/04/2020 Time: 16:27 Bed 17 Private MD: ED Physician Anthony Ch HPI: 06/04 19:53 This 84 yrs old Black Male presents to ER via Wheelchair with complaints of Chest Pain, jmm Shortness Of Breath. 20:07 Onset: acutely, 2 day(s) ago. The pain radiates to left back. The chest pain is jmm described as aching, sharp. Duration: The patient or guardian reports multiple episodes. This is an 84 year old male with a history of CAD that presents to the ED with complaints of substernal chest pain beginning 2 evenings ago which has been intermittent ever since. . Historical: - Allergies: 16:31 Bactrim; ss 16:31 Demerol; ss 16:31 Plavix; ss 16:31 Sulfa (Sulfonamide Antibiotics); ss - PMHx: 16:31 High Cholesterol; Hypertension; kidney disease; Hyperlipidemia; Myocardial infarction; ss Gout; CVA; CHF; borderline diabetic; Atrial Fib; asbestos; arrythmias; neuropathy; Pace maker; - PSHx: 16:31 pacemaker; cardiac stents x3; back sx; neck sx; ss - Immunization history:: Adult Immunizations up to date. - Social history:: Smoking status: Patient denies any tobacco usage or history of. ROS: 20:07 Constitutional: Negative for fever, chills, and weight loss, Abdomen/GI: Negative for jmm abdominal pain, nausea, vomiting, diarrhea, and constipation. 20:07 Cardiovascular: Positive for chest pain. 20:07 Respiratory: Positive for shortness of breath. 20:07 All other systems are negative. Exam: 20:07 Constitutional: This is a well developed, well nourished patient who is awake, alert, jmm and in no acute distress. Head/Face: atraumatic. Eyes: EOMI, no conjunctival erythema appreciated ENT: Moist Mucus Membranes Neck: Trachea midline, Supple Chest/axilla: Normal chest wall appearance and motion. Cardiovascular: Regular rate and rhythm. No edema appreciated Respiratory: Normal respirations, no respiratory distress appreciated Abdomen/GI: Non distended, soft Back: Normal ROM Skin: General appearance color normal MS/ Extremity: Moves all extremities, no obvious deformities appreciated, no edema noted to the lower extremities Neuro: Awake and alert, normal gait Psych: Behavior is normal, Mood is normal, Patient is cooperative and pleasant Vital Signs: 16:32 BP 148 / 71; Pulse 73; Resp 18; Temp 97.0; Pulse Ox 100% on R/A; Weight 131.09 kg; ss Height 6 ft. 4 in. (193.04 cm); Pain 9/10; 21:40 BP 139 / 73; Pulse 83; Resp 18; Pulse Ox 95% on R/A; ll1 16:32 Body Mass Index 35.18 (131.09 kg, 193.04 cm) ss MDM: 18:52 Patient medically screened. iman 21:05 The patient was given aspirin in the Emergency Department. Data reviewed: vital signs, [facility] lab test result(s), EKG, radiologic studies, plain films. ED course: I discussed the patient with Dr. Bloom and Dr. Ambrose. . 06/04 18:50 Order name: Basic Metabolic Panel; Complete Time: 19:49 [facility] 06/04 18:50 Order name: CBC with Diff; Complete Time: 19:49 [facility] 06/04 18:50 Order name: LFT's; Complete Time: 19:49 [facility] 06/04 18:50 Order name: Magnesium; Complete Time: 19:49 [facility] 06/04 18:50 Order name: NT PRO-BNP; Complete Time: 19:49 [facility] 06/04 18:50 Order name: PT-INR; Complete Time: 19:49 [facility] 06/04 18:50 Order name: Troponin (emerg Dept Use Only); Complete Time: 19:49 [facility] 06/04 21:35 Order name: Magnesium; Complete Time: 23:49 [facility] 06/04 21:35 Order name: Phosphorus; Complete Time: 23:49 [facility] 06/04 21:35 Order name: Troponin I; Complete Time: 00:12 [facility] 06/04 21:35 Order name: Thyroid Stimulating Hormone; Complete Time: 00:12 [facility] 06/05 00:10 Order name: T4 Free; Complete Time: 00:12 [facility] 06/05 03:34 Order name: SARS-COV-2 RT PCR; Complete Time: 13:07 [facility] 06/05 03:35 Order name: CBC with Automated Diff; Complete Time: 13:07 [facility] 06/04 18:50 Order name: XRAY Chest (1 view); Complete Time: 19:55 [facility] 06/04 18:50 Order name: EKG; Complete Time: 18:52 [facility] 06/04 18:50 Order name: Cardiac monitoring; Complete Time: 18:51 [facility] 06/04 18:50 Order name: EKG - Nurse/Tech; Complete Time: 18:51 [facility] 06/04 21:35 Order name: CONS Pharmacy Consult [facility] 06/04 21:35 Order name: CONS Physician Consult [facility] 06/05 03:41 Order name: Comprehensive Metabolic Panel; Complete Time: 13: [facility] 06/05 03:41 Order name: Troponin I; Complete Time: 13: [facility] 06/05 03:41 Order name: Lipid Profile; Complete Time: 13: [facility] 06/05 05:01 Order name: CBC Smear Scan; Complete Time: 13: [facility] 06/05 07:53 Order name: Troponin I; Complete Time: 13: [facility] 06/05 15:26 Order name: Vitamin D, 25 ([place]), TOTAL; Complete Time: 15:35 [facility] 06/04 18:50 Order name: IV Saline Lock; Complete Time: 18:51 [facility] 06/04 18:50 Order name: Labs collected and sent; Complete Time: 18:51 [facility] 06/04 18:50 Order name: O2 Per Protocol; Complete Time: 18:51 [facility] 06/04 18:50 Order name: O2 Sat Monitoring; Complete Time: 18:51 [facility] Administered Medications: 19:46 Drug: morphine 4 mg {Note: rass 0.} Route: IVP; Site: left antecubital; ll1 20:02 Follow up: Response: No adverse reaction; Pain is decreased; RASS: Alert and Calm (0) 1 19:46 Drug: Zofran (Ondansetron) 4 mg Route: IVP; Site: left antecubital; ll1 20:03 Follow up: Response: No adverse reaction; RASS: Alert and Calm (0) ll1 20:02 Drug: Aspirin Chewable Tablet 324 mg Route: PO; ll1 21:39 Follow up: Response: No adverse reaction; RASS: Alert and Calm (0) ll1 21:24 Drug: Nitro-Bid Ointment 2 % 1 inches Route: Transdermal; Site: anterior chest wall; ll1 Disposition: 06/06 05:41 Co-signature as Attending Physician, Anthony Ch MD I agree with the assessment [facility] plan of care. Disposition: 06/04/20 21:06 Hospitalization ordered by Marli Ambrose for Observation. Preliminary diagnosis is Non-ST elevation (NSTEMI) myocardial infarction. - Bed requested for Telemetry/MedSurg (Inpatient). - Status is Observation. jd3 - Condition is Stable. - Problem is new. - Symptoms are unchanged. Signatures: Dispatcher [employer] EDJesika Sloan, RN Anthony Stapleton MD MD cha Mickail, Joel, PA PA jmm Smirch, Shelby, RN RN ss Garcia, Cindy, RN RN cg Davies, Jonathon, RN RN jFrida Benitez RN RN ll1 Corrections: (The following items were deleted from the chart) 06/04 21:23 21:06 Hospitalization Ordered by Marli Ambrose MD for Observation. Preliminary cg diagnosis is Non-ST elevation (NSTEMI) myocardial infarction. Bed requested for Telemetry/MedSurg (Inpatient). Status is Observation. Condition is Stable. Problem is new. Symptoms are unchanged. [facility] 21:51 21:23 06/04/2020 21:06 Hospitalization Ordered by Marli Ambrose MD for Observation. cg Preliminary diagnosis is Non-ST elevation (NSTEMI) myocardial infarction. Bed requested for [facility] ER HOLD. Status is Observation. Condition is Stable. Problem is new. Symptoms are unchanged. 21:51 21:51 06/04/2020 21:06 Hospitalization Ordered by Marli Ambrose MD for Observation. cg Preliminary diagnosis is Non-ST elevation (NSTEMI) myocardial infarction. Bed requested for [facility] ER HOLD. Status is Observation. Condition is Stable. Problem is new. Symptoms are unchanged. 06/05 16:40 06/04 21:51 06/04/2020 21:06 Hospitalization Ordered by Marli Ambrose MD for Observation. Preliminary diagnosis is Non-ST elevation (NSTEMI) myocardial infarction. Bed requested for [facility] ER HOLD. Status is Observation. Condition is Stable. Problem is new. Symptoms are unchanged. cg 06/05 17:54 16:40 06/04/2020 21:06 Hospitalization Ordered by Marli Ambrose MD for Observation. jd3 Preliminary diagnosis is Non-ST elevation (NSTEMI) myocardial infarction. Bed requested for Telemetry/MedSurg (Inpatient). Status is Observation. Condition is Stable. Problem is new. Symptoms are unchanged. kl
--- NOTE | 2020-06-04 21:08 | ER ---
Nurse's Notes [facility] Name: Tomas Suárez Age: 84 yrs Sex: Male : 1935 Arrival Date: 06/04/2020 Time: 16:27 Bed 17 Private MD: Diagnosis: Non-ST elevation (NSTEMI) myocardial infarction Presentation: 06/04 16:30 Chief complaint: Patient states: L lateral chest wall pain that began 2 days ago. ss Coronavirus screen: Client denies travel out of the [place] in the last 14 days. Coronavirus screen: Client presents with at least one sign or symptom that may indicate coronavirus-19. Standard/surgical mask placed on the client. Ebola Screen: Patient denies exposure to infectious person. Patient denies travel to an Ebola-affected area in the 21 days before illness onset. Initial Sepsis Screen: Does the patient meet any 2 criteria? No. Patient's initial sepsis screen is negative. Does the patient have a suspected source of infection? No. Patient's initial sepsis screen is negative. Risk Assessment: Do you want to hurt yourself or someone else? Patient reports no desire to harm self or others. Onset of symptoms was June 02, 2020. 16:30 Method Of Arrival: Wheelchair ss 16:30 Acuity: CORNELIUS 3 ss Historical: - Allergies: 16:31 Bactrim; ss 16:31 Demerol; ss 16:31 Plavix; ss 16:31 Sulfa (Sulfonamide Antibiotics); ss - PMHx: 16:31 High Cholesterol; Hypertension; kidney disease; Hyperlipidemia; Myocardial infarction; ss Gout; CVA; CHF; borderline diabetic; Atrial Fib; asbestos; arrythmias; neuropathy; Pace maker; - PSHx: 16:31 pacemaker; cardiac stents x3; back sx; neck sx; ss - Immunization history:: Adult Immunizations up to date. - Social history:: Smoking status: Patient denies any tobacco usage or history of. Screenin:09 Abuse screen: Denies threats or abuse. Nutritional screening: No deficits noted. ll1 Tuberculosis screening: No symptoms or risk factors identified. Fall Risk Total Thompson Fall Scale indicates No Risk (0-24 pts). Assessment: 19:08 General: Appears in no apparent distress. Behavior is calm, cooperative, appropriate ll1 for age. Pain: Complains of pain in L lateral chest/mid sternal Pain does not radiate. Pain began 2-3 days ago. Neuro: No deficits noted. Cardiovascular: Reports chest pain, shortness of breath, Heart tones S1 S2 Capillary refill < 3 seconds Clubbing of nail beds is absent JVD is absent Patient's skin is warm and dry. Rhythm is regular Chest pain is described as mild. Respiratory: Airway is patent Trachea midline Respiratory effort is even, unlabored, Respiratory pattern is regular, symmetrical, Breath sounds are clear bilaterally. Denies cough, labored breathing. 20:00 Reassessment: No changes from previously documented assessment. Patient and/or family ll1 updated on plan of care and expected duration. Pain level reassessed. Patient is alert, oriented x 3, equal unlabored respirations, skin warm/dry/pink. 21:00 Reassessment: No changes from previously documented assessment. Patient and/or family ll1 updated on plan of care and expected duration. Pain level reassessed. Patient is alert, oriented x 3, equal unlabored respirations, skin warm/dry/pink. Vital Signs: 16:32 BP 148 / 71; Pulse 73; Resp 18; Temp 97.0; Pulse Ox 100% on R/A; Weight 131.09 kg; ss Height 6 ft. 4 in. (193.04 cm); Pain 9/10; 21:40 BP 139 / 73; Pulse 83; Resp 18; Pulse Ox 95% on R/A; ll1 16:32 Body Mass Index 35.18 (131.09 kg, 193.04 cm) ED Course: 16:27 Patient arrived in ED. ag5 16:30 Triage completed. ss 16:31 Arm band placed on right wrist. 18:47 Wallace Pagan PA is PHCP. [facility] 18:47 Anthony Ch MD is Attending Physician. rae 18:48 Frida Steen RN is Primary Nurse. ll1 19:00 Inserted saline lock: 22 gauge in left antecubital area, using aseptic technique. ll1 19:10 Patient has correct armband on for positive identification. Bed in low position. Call ll1 light in reach. Side rails up X2. Pulse ox on. NIBP on. 19:10 Patient maintains SpO2 saturation greater than 95% on room air. ll1 19:33 XRAY Chest (1 view) In Process Unspecified. EDMS 21:06 Marli Ambrose MD is Hospitalizing Provider. [facility] 21:40 No provider procedures requiring assistance completed. Patient admitted, IV remains in ll1 place. 06/05 03:00 Repeat lab(s) drawn. by me, sent to lab. 08:16 Primary Nurse role handed off by Frida Steen RN bd Administered Medications: 06/04 19:46 Drug: morphine 4 mg {Note: rass 0.} Route: IVP; Site: left antecubital; 1 20:02 Follow up: Response: No adverse reaction; Pain is decreased; RASS: Alert and Calm (0) [facility] 19:46 Drug: Zofran (Ondansetron) 4 mg Route: IVP; Site: left antecubital; 1 20:03 Follow up: Response: No adverse reaction; RASS: Alert and Calm (0) 1 20:02 Drug: Aspirin Chewable Tablet 324 mg Route: PO; 1 21:39 Follow up: Response: No adverse reaction; RASS: Alert and Calm (0) [facility] 21:24 Drug: Nitro-Bid Ointment 2 % 1 inches Route: Transdermal; Site: anterior chest wall; 1 Outcome: 21:06 Decision to Hospitalize by Provider. [facility] 06/05 17:54 Patient left the ED. jd3 Signatures: Dispatcher [employer] EDMS Maryam Blackwood Steven, RN Wallace Babcock PA PA [facility] Maria L Whitten RN RN ss Davies, Jonathon, RN RN jd3 Gaskin, Ajare Frida Marie RN RN [facility]
[2020-06-04] MEDS ORDERED: ALPRAZOLAM 0.25 MG TABLET PO PRN (21:28)
[2020-06-04] MEDS ORDERED: ACETAMINOPHEN 500 MG TAB PO PRN (21:28)
--- NOTE | 2020-06-04 21:28 | P.HP ---
Certification for Inpatient Patient admitted to: Observation With expected LOS: <2 Midnights Patient will require the following post-hospital care: None Practitioner: I am a practitioner with admitting privileges, knowledge of patient current condition, hospital course, and medical plan of care. Services: Services provided to patient in accordance with Admission requirements found in Title 42 Section 412.3 of the Code of Federal Regulations Patient History Date of Service: 06/04/20 Reason for admission: Chest pain History of Present Illness: 84-year-old male with past medical history of hypertension, CAD s/p PCI , Bradycardia s/p pacemaker,follows with Cardiology at [facility] [address], Chronic kidney disease stage 3 admitted for left-sided chest pain, sudden onset on work patient up 2 days ago, chest pain as being intermittent and recurrent since then. Chest pain radiates to the left back. Patient denies any nausea or vomiting. He denies any worsening shortness of breath. On presentation he was noted with mild elevated troponin of 0.3. Cardiology has been discussed with. EKG shows paced rhythm . He has been admitted for presumed non ST elevation [place] Allergies sulfamethoxazole [From Bactrim] Allergy (Mild, Verified 01/28/17 06:26) Rash trimethoprim [From Bactrim] Allergy (Mild, Verified 01/28/17 06:26) Rash clopidogrel [From Plavix] Allergy (Verified 01/28/17 06:26) Unknown Sulfa (Sulfonamide Allergy (Uncoded 01/28/17 02:10) Unknown Home Medications: Atorvastatin Calcium [Lipitor] 40 mg PO BEDTIME 01/28/17 Furosemide [Lasix*] 40 mg PO DAILY 01/28/17 Hydrocodone Bit/Acetaminophen [Hydrocodon-Acetaminophn 10-500] 1 each PO TID PRN 01/28/17 allopurinoL [Zyloprim*] 100 mg PO DAILY 01/28/17 Alprazolam [Xanax] 0.5 mg PO BID 06/12/19 Amiodarone HCl [Cordarone*] 200 mg PO BID 06/12/19 Apixaban [Eliquis *] 2.5 mg PO BID 06/12/19 Aspirin [Ecotrin 81 MG] 81 mg PO DAILY 06/12/19 Calcitrol [Rocaltrol*] 0.25 mcg PO SEECOM 06/12/19 Gabapentin 200 mg PO TID 06/12/19 Metoprolol Tartrate 25 mg PO BID 06/12/19 metOLazone [Metolazone] 5 mg PO SEECOM 06/12/19 Levothyroxine [Synthroid*] 0.05 mg PO DAILYAC #30 tablet 06/13/19 - Past Medical/Surgical History Diabetic: No -: HTN -: CHF, diastolic dysfunction -: Atrial fibrillation on chronic anti coagulation therapy -: CAD with prior stents -: Pacemaker defibrillator -: GERD -: Neuropathy -: Pacemaker defibrillator -: Cardiac stents Psychosocial/ Personal History: Patient is lives at home. - Family History Father -: Other (see notes) Mother -: Heart disease Brother -: Heart disease Notes: 3 brothers - heart failure Sister -: Heart disease Notes: heart failure - Social History Alcohol use: No CD- Drugs: No Caffeine use: Yes Review of Systems 10-point ROS is otherwise unremarkable Physical Examination - Physical Exam General: Alert, In no apparent distress, Oriented x3 HEENT: Atraumatic, Normocephalic, PERRLA, Mucous membr. moist/pink Neck: Supple, 2+ carotid pulse no bruit, JVD not distended Respiratory: Clear to auscultation bilaterally, Normal air movement Cardiovascular: No edema, Normal pulses, Regular rate/rhythm, Normal S1 S2, Other (PPM insitu ) Gastrointestinal: Normal bowel sounds, Hypoactive, Soft and benign Musculoskeletal: No swelling Integumentary: No rashes, No breakdown Neurological: Normal gait, Normal speech, Normal strength at 5/5 x4 extr, Sensation intact, Cranial nerves 3-12 intact Lymphatics: No axilla or inguinal lymphadenopathy - Studies Laboratory Data (last 24 hrs) 06/04/20 19:00: PT 13.5 H, INR 1.15 06/04/20 19:00: WBC 4.30, Hgb 12.9 L, Hct 38.6 L, Plt Count 99 L 06/04/20 19:00: Sodium 140, Potassium 3.4 L, BUN 38 H, Creatinine 2.62 H, Glucose 113 H, Magnesium 2.2, Total Bilirubin 0.5, AST 18, ALT 16, Alkaline Phosphatase 57 Assessment and Plan - Problems (Diagnosis) (1) Chest pain Current Visit: Yes Status: Acute (2) Elevated troponin Current Visit: Yes Status: Acute (3) CHF (congestive heart failure) Onset Date: 01/28/17 Current Visit: No Status: Acute (4) Hypokalemia Current Visit: No Status: Acute (5) CAD (coronary artery disease) Onset Date: 01/28/17 Current Visit: No Status: Chronic Qualifiers: (6) HTN (hypertension) Onset Date: 01/28/17 Current Visit: No Status: Chronic Qualifiers: - Advance Directives Does patient have a Living Will: No Does patient have a Durable POA for Healthcare: No Physician Review: Patient Assessed, Agree with Above Assessment and Plan Physician Review Additional Text: #Chest pain-with elevated troponin-slightly due to non ST elevation [place] although difficult to tell given paced EKG reading -will dose Lovenox/nitro patch/aspirin now -Follow serial set of cardiac enzymes -continue home statin and beta-bib -will consult Cardiology for evaluation -if rising troponin might need urgent cardiac catheterization. -chest pain ameliorated with morphine, follow for recurrence #History of CKD-creatinine elevated at 2.6 but stable Follow with Nephrology eval #Hypertension-controlled, continue home med #DVT prophylaxis-on subcutaneous Lovenox #Advanced directive patient is a full code - Time Spent Managing Pts Care (In Minutes): 65
[2020-06-04] MEDS ORDERED: NITROGLYCERIN 1 GM PKT TD ONE (21:33)
[2020-06-04] MEDS ORDERED: HYDRALAZINE HCL 20 MG/ML VIAL IV PRN (21:33)
[2020-06-04] MEDS ORDERED: POTASSIUM 25 MEQ EFFERV TAB PO ONE (21:33)
[2020-06-04] MEDS ORDERED: ENOXAPARIN 100 MG/ML SYR SQ SCH (22:00)
[2020-06-04] MEDS ORDERED: POTASSIUM 25 MEQ EFFERV TAB ONE (23:39)
[2020-06-04 23:48] LABS: Magnesium 2.2 mg/dL (1.8-2.4); Phosphorus 2.8 mg/dL (2.5-4.9)
[2020-06-04 23:57] LABS: Thyroid Stimulating Hormone 11.8 uIU/mL (0.360-3.740); Troponin I 0.34 ng/mL (0.0-0.045)
[2020-06-05 01:30] VITALS: BMI 35.0
[2020-06-05] MEDS: ONDANSETRON 4 MG/2 ML VIAL IV PRN (02:03)
[2020-06-05] MEDS ORDERED: ONDANSETRON 4 MG/2 ML VIAL ONE ×2 (02:17→08:05)
[2020-06-05 03:32] LABS: Absolute Lymphocytes (CBC) 1.3 K/uL (0.7-4.9); Basophils % 0.4 % (0-1.3); Hematocrit 32.5 % (39.6-49.0); Lymphocytes % 33.8 % (15.3-44.8); MPV 9.6 fL (7.6-11.3)
[2020-06-05 03:39] LABS: Albumin 2.3 g/dL (3.4-5.0); Bilirubin Total 0.6 mg/dL (0.2-1.0); Protein, Total 5.9 g/dL (6.4-8.2); Troponin I 0.28 ng/mL (0.0-0.045)
[2020-06-05 03:41] LABS: Potassium 2.6 mmol/L (3.5-5.1)
[2020-06-05 05:00] LABS: Blood Morphology Comment NOT SEEN (NOT SEEN); Platelet Estimate DECR; Platelets, Giant FEW; White Blood Cell Scan OK (OK)
[2020-06-05] MEDS: KCL 20 MEQ/100 mL IVPB 20 MEQ/100 ML BAG IV SCH ×3 (05:00→09:00)
[2020-06-05] MEDS ORDERED: KCL 20 MEQ/100 mL IVPB 20 MEQ/100 ML BAG IV ONE ×3 (05:09→14:31)
[2020-06-05] MEDS ORDERED: LEVOTHYROXINE SOD 0.05 MG TABLET ONE (06:27)
--- NOTE | 2020-06-05 06:28 | EKG ---
Test Date: 2020-06-04 Test Time: 16:38:14 Pre School Manager: ASHOK MEASUREMENT RESULTS: Intervals: Rate: 70 AK: QRSD: 142 QT: 482 QTc: 520 Freeman: P: AK: QRS: 1 T: 223 INTERPRETIVE STATEMENTS: Electronic atrial pacemaker Right bundle branch block T wave abnormality, consider inferolateral ischemia Abnormal ECG Compared to ECG 06/12/2019 16:01:29 Right bundle-branch block now present T-wave abnormality now present Possible ischemia now present Ventricular-paced complex(es) or rhythm no longer present Atrial-sensed ventricular-paced complex(es) or rhythm no longer present Sinus rhythm no longer present Electronically Signed On 06-05-20 06:27:05 [employer] by Pierce Bloom
[2020-06-05] MEDS: LEVOTHYROXINE SOD 0.05 MG TABLET PO SCH (06:30)
[2020-06-05] MEDS: GABAPENTIN 100 MG CAP PO SCH ×3 (09:00→21:36)
[2020-06-05] MEDS: allopurinoL 100 MG TAB PO SCH (09:00)
[2020-06-05] MEDS: METOPROLOL TAR 50 MG TAB PO SCH ×2 (09:00→21:35)
[2020-06-05] MEDS ORDERED: FUROSEMIDE 40 MG TABLET PO SCH (09:00)
[2020-06-05] MEDS ORDERED: PNEUMOCOCCAL VACCINE 0.5 ML IMVAC ONE (09:00)
[2020-06-05] MEDS: ASPIRIN 325 MG TAB PO SCH (09:00)
[2020-06-05] MEDS ORDERED: FUROSEMIDE 40 MG TABLET ONE (10:05)
[2020-06-05] MEDS ORDERED: METOPROLOL TAR 50 MG TAB ONE (10:05)
[2020-06-05] MEDS ORDERED: ATORVASTATIN 20 MG TAB ONE (10:06)
[2020-06-05] MEDS ORDERED: ASPIRIN 325 MG TAB ONE (10:06)
[2020-06-05] MEDS ORDERED: MORPHINE 2 MG/ML SYR ONE (10:40)
[2020-06-05] MEDS ORDERED: CALCIUM GLUC 10% INJ 9.3 MEQ in NA CHLORIDE 0.9% 100 ML IV ONE (12:37)
--- NOTE | 2020-06-05 12:43 | P.PN ---
Subjective Date of Service: 06/05/20 Chief Complaint: Chest pain Patient denies any chest pain. Noted he has hyponatremia and hypocalcemia. Patient seen by cardiology. Physical Examination - Vital Signs Temperature: 97.7 F Blood Pressure: 109/65 Pulse: 69 Respirations: 17 Pulse Ox (%): 98 - Physical Exam General: Alert, In no apparent distress, Oriented x3 HEENT: Mucous membr. moist/pink Neck: Supple, JVD not distended Respiratory: Clear to auscultation bilaterally, Normal air movement Cardiovascular: No edema, Regular rate/rhythm, Normal S1 S2 Gastrointestinal: Soft and benign, Non-distended, No tenderness Musculoskeletal: No swelling, No tenderness Integumentary: No rashes, No erythema Neurological: Normal speech, Normal strength at 5/5 x4 extr, Cranial nerves 3-12 intact - Studies Laboratory Data (last 24 hrs) 06/04/20 19:00: PT 13.5 H, INR 1.15 06/04/20 19:00: WBC 4.30, Hgb 12.9 L, Hct 38.6 L, Plt Count 99 L 06/04/20 19:00: Sodium 140, Potassium 3.4 L, BUN 38 H, Creatinine 2.62 H, Glucose 113 H, Magnesium 2.2, Total Bilirubin 0.5, AST 18, ALT 16, Alkaline Phosphatase 57 Assessment And Plan - Current Problems (Diagnosis) (1) Chest pain Current Visit: Yes Status: Acute (2) Elevated troponin Current Visit: Yes Status: Acute (3) Acute worsening of stage 4 chronic kidney disease Current Visit: Yes Status: Acute (4) CAD (coronary artery disease) Onset Date: 01/28/17 Current Visit: No Status: Chronic Qualifiers: (5) HTN (hypertension) Onset Date: 01/28/17 Current Visit: No Status: Chronic Qualifiers: (6) Morbid obesity Onset Date: 01/28/17 Current Visit: No Status: Chronic (7) Hypocalcemia Current Visit: Yes Status: Acute - Plan Patient seen by cardiology. Dr. Bloom is planning cardiac catheterization once his electrolytes are optimized. Troponin mildly elevated but trended flat. Will continue hydration with IV normal saline. Replete potassium Replete calcium. Patient started on calcitriol. Check vitamin-D Continue aspirin, added Plavix. Continue metoprolol. Cardiology to follow Physician Review: Patient Assessed, Agree with Above Assessment and Plan
--- NOTE | 2020-06-05 13:05 | ECHO ---
HEIGHT: 6 ft 4 in WEIGHT: 288 lb 0 oz DATE OF STUDY: 06/05/[address]: Pierce Bloom MD 2-DIMENSIONAL: YES M.MODE: YES DOPPLER: YES COLOR FLOW: YES TDS: PORTABLE: DEFINITY: BUBBLE STUDY: DIAGNOSIS: NON ST ELEVATION MYOCARDIAL INFARCTION CARDIAC HISTORY: CATHERIZATION: SURGERY: PROSTHETIC VALVE: PACEMAKER: MEASUREMENTS (cm) DIASTOLIC (NORMALS) SYSTOLIC (NORMALS) IVSd 1.3 (0.6-1.2) LA Diam 3.5 (1.9-4.0) LVEF 74% LVIDd 4.0 (3.5-5.7) LVIDs 2.3 (2.0-3.5) %FS 43% LVPWd 1.3 (0.6-1.2) Ao Diam 3.6 (2.0-3.7) 2 DIMENSIONAL ASSESSMENT: RIGHT ATRIUM: NORMAL LEFT ATRIUM: NORMAL RIGHT VENTRICLE: NORMAL LEFT VENTRICLE: LEFT VENTRICULAR HYPERTROPHY TRICUSPID VALVE: NORMAL MITRAL VALVE: NORMAL PULMONIC VALVE: NORMAL AORTIC VALVE: NORMAL PERICARDIAL EFFUSION: NONE AORTIC ROOT: NORMAL LEFT VENTRICULAR WALL MOTION: NORMAL DOPPLER/COLOR FLOW: NORMAL COMMENTS: NORMAL LEFT VENTRICULAR EJECTION FRACTION. LEFT VENTRICULAR HYPERTROPHY. NO WALL MOTION ABNORALITY. NO EFFUSION. TECHNOLOGIST: ELLI QUINTANILLA
[2020-06-05] MEDS: ACETYLCYST 20% 800 MG/4 ML VIAL PO SCH ×2 (15:00→21:37)
--- NOTE | 2020-06-05 15:08 | CON ---
Date of Consultation: 06/05/2020 Reason For Consultation: Acute on chronic renal insufficiency. History Of Present Illness: Mr. Suárez is an 84-year-old male with past medical history significant f or history of chronic renal insufficiency, hypertension, who presented to [facility] with ch est pain and shortness of breath, the onset of which was very sudden. He was found to have NSTEMI an d plan for possible cardiac catheterization. Nephrology is being consulted for optimizing his renal function prior to cardiac catheterization. The patient states that his chest pain is doing much bett er at this time. Denies any shortness of breath. All other review of systems are negative. Past Medical History: Significant for history of hypertension, chronic diastolic heart failure, hist ory of atrial fibrillation, on chronic anticoagulation, coronary artery disease with prior stents, hi story of defibrillator placement, and neuropathy. Family History: Noncontributory. Review of Systems: Positive for some shortness of breath associated with some chest pain, but none at this time. Denies any abdominal pain. Denies any shortness of breath on exertion. Denies any shortness of breath at rest at this time. Denies any headache, nausea, vomiting. Reports good urination and denies any NSA ID use. All other review of systems are negative. Physical Examination: Vital Signs: At this time are showing temperature of 97.7, pulse rate of 69, respiratory rate of 17, and blood pressure 109/65. General: He appears in no acute distress. HEENT: Atraumatic head. Lungs: Clear to auscultation. Abdomen: Soft and nontender. Extremities: Showed no evidence of edema. Heart: Auscultation of the heart revealed regular rate and rhythm. No JVD was noted. Neurologic: He is alert, awake, and oriented x3. Laboratory Data: At this time showing sodium of 144, potassium of 2.6, chloride of 111, BUN of 29, a nd creatinine of 1.8, bicarb of 29, calcium was 6.5. LFTs were within normal limits. Troponin was e levated to 0.33. His TSH was elevated to 11.8. CBC showing hemoglobin of 10.9, hematocrit of 32.5, and platelet count of 79, WBC count of 3.7. Current Medications: Include allopurinol, alprazolam, calcitriol, Lasix 40 mg daily, gabapentin, hyd ralazine p.r.n., levothyroxine, and 60 mEq of potassium chloride IV has been given. Impression: 1.Acute on chronic renal insufficiency, currently with overall improving renal function at this time . The patient's creatinine is stable at 1.8. I have discussed with him the possibility of contrast induced nephropathy. I will go ahead and get him started on Mucomyst for renal protection prior to h eart catheterization. 2.Hypokalemia, has been repleted. 3.Hypocalcemia. 4.Non-ST segment elevation myocardial infarction. The patient is being planned for possible heart c atheterization. 5.Hypotension. The patient's current antihypertensive regimen has been reviewed and we will hold pa rameters and blood pressure medicines. Plan: Overall, the patient is currently stable at this time. He has been started on calcitriol for his hypocalcemia. Potassium is being repleted. We will hold off on the Lasix as his volume status a ctually looks dry to me and start him on Mucomyst for renal protection. Discussed with him possibili ty of worsening renal failure with a heart catheterization; however, the patient understands and woul d like to proceed with heart catheterization as that is deemed necessary for him. We will continue t o follow up closely. VV/MODL Voice ID: [id number] Report ID: [id number]
[2020-06-05] MEDS: NS KCL 20MEQ 20 MEQ/1,000 ML BAG IV SCH (17:00)
[2020-06-05] MEDS ORDERED: NS KCL 20MEQ 1,000 ML IV ONE (17:40)
[2020-06-05] MEDS: MORPHINE 2 MG/ML SYR IV PRN (20:21)
[2020-06-05] MEDS: ATORVASTATIN 40 MG TAB PO SCH (21:35)
[2020-06-05] MEDS: METOPROLOL TAR 25 MG TAB PO SCH (21:45)
[2020-06-06] MEDS: MORPHINE 2 MG/ML SYR IV PRN ×3 (02:28→17:06)
[2020-06-06 04:40] LABS: Absolute Lymphocytes (CBC) 1.4 K/uL (0.7-4.9); Basophils % 0.6 % (0-1.3); Hematocrit 38.3 % (39.6-49.0); MPV 10.1 fL (7.6-11.3); RBC Red Blood Cell Count 3.88 M/uL (4.33-5.43)
[2020-06-06] MEDS: ONDANSETRON 4 MG/2 ML VIAL IV PRN (04:47)
[2020-06-06 04:58] LABS: Potassium 3.8 mmol/L (3.5-5.1); Troponin I 0.36 ng/mL (0.0-0.045)
[2020-06-06] MEDS: LEVOTHYROXINE SOD 0.05 MG TABLET PO SCH (06:04)
[2020-06-06] MEDS: ENOXAPARIN 40 MG/0.4 ML SQ SCH (09:00)
[2020-06-06] MEDS: allopurinoL 100 MG TAB PO SCH (09:00)
[2020-06-06] MEDS: ASPIRIN 325 MG TAB PO SCH (09:51)
[2020-06-06] MEDS: GABAPENTIN 100 MG CAP PO SCH ×3 (09:51→21:42)
[2020-06-06] MEDS: METOPROLOL TAR 25 MG TAB PO SCH ×2 (09:51→21:41)
[2020-06-06] MEDS: ACETYLCYST 20% 800 MG/4 ML VIAL PO SCH ×2 (10:23→21:43)
--- NOTE | 2020-06-06 12:33 | P.PN ---
Subjective Date of Service: 06/06/20 Chief Complaint: Chest pain Patient has no complain. His serum creatinine trended up a bit from yesterday. Troponin trended flat. He denies any shortness of breath. Physical Examination - Vital Signs Temperature: 96.7 F Blood Pressure: 103/61 Pulse: 74 Respirations: 18 Pulse Ox (%): 95 - Physical Exam General: Alert, In no apparent distress Neck: Supple, JVD not distended Respiratory: Clear to auscultation bilaterally, Normal air movement Cardiovascular: Regular rate/rhythm, Normal S1 S2 Gastrointestinal: Soft and benign, Non-distended Musculoskeletal: Other (Pacemaker-left chest.) Integumentary: No rashes, No erythema Neurological: Normal strength at 5/5 x4 extr Assessment And Plan - Current Problems (Diagnosis) (1) Chest pain Current Visit: Yes Status: Acute (2) Elevated troponin Current Visit: Yes Status: Acute (3) Acute worsening of stage 4 chronic kidney disease Current Visit: Yes Status: Acute (4) CAD (coronary artery disease) Onset Date: 01/28/17 Current Visit: No Status: Chronic Qualifiers: (5) HTN (hypertension) Onset Date: 01/28/17 Current Visit: No Status: Chronic Qualifiers: (6) Morbid obesity Onset Date: 01/28/17 Current Visit: No Status: Chronic (7) Hypocalcemia Current Visit: Yes Status: Acute (8) Acute diastolic heart failure Current Visit: Yes Status: Acute - Plan Patient seen by cardiology. Dr. Bloom is planning cardiac catheterization once his electrolytes are optimized. Nephrology input appreciated. Patient started on Mucomyst. Patient briefly hydrated with normal saline. Troponin mildly elevated but trended flat. Creatinine trended up a bit from yesterday. Hypokalemia corrected Discontinue IV fluid to avoid volume overload. Patient started on calcitriol. Calcium level is better today. Continue aspirin, added Plavix. Continue metoprolol. Cardiology and Nephrology to follow. Physician Review: Patient Assessed, Agree with Above Assessment and Plan
[2020-06-06] MEDS: NS KCL 20MEQ 20 MEQ/1,000 ML BAG IV SCH (13:00)
[2020-06-06] MEDS ORDERED: POTASSIUM CL SA 10 MEQ TAB PO ONE (16:33)
--- NOTE | 2020-06-06 18:00 | PN ---
Date of Progress Note: 06/06/2020 Subjective: The patient was seen and examined at bedside. He is doing well. Denies any more episod es of chest pain. Physical Examination: Vital Signs: Have been reviewed and are stable. General: He appears in no acute distress. HEENT: Atraumatic head. Lungs: Clear to auscultation. Abdomen: Soft. Extremities: Showed no evidence of edema. Laboratory Data: Showing creatinine of 2.26, BUN of 31, calcium improving to 8.4, and potassium impr oving to 3.8. CBC showed stable hemoglobin, hematocrit, and platelet count. Troponin was slightly e levated. Current Medications: Have been reviewed in detail. Impression: 1.Chronic renal insufficiency with underlying cardiorenal syndrome, currently with stable renal func tion overall and no volume issues. 2.Non-ST segment elevation myocardial infarction. The patient is planned for possible heart cathete rization tomorrow. He is getting Mucomyst for renal protection. We will hold off on any IV fluids a t this time to avoid volume overload as he has congestive heart failure underlying. 3.Hypotension, currently stable. 4.Peripheral vascular disease, currently stable. 5.History of hyperuricemia, on allopurinol. 6.Hypokalemia and hypocalcemia. The patient's potassium has been corrected. We will go ahead and g katerina him another dose of potassium chloride tomorrow and also continue with calcitriol for the hypocal cemia. Plan: Overall, the patient is doing okay. His renal status seems to be optimized for the heart cath eterization procedure. He understands the risk of renal insufficiency with contrast exposure. I hav e discussed with him the need for dialysis if his renal function was to worsen. The patient voiced u nderstanding. Continue all other medications and plan of care. VV/MODL Voice ID: [id number] Report ID: [id number]
[2020-06-06] MEDS: ATORVASTATIN 40 MG TAB PO SCH (21:42)
[2020-06-07] MEDS: LEVOTHYROXINE SOD 0.05 MG TABLET PO SCH (06:04)
[2020-06-07 06:33] LABS: Magnesium 2.1 mg/dL (1.8-2.4); Potassium 4.3 mmol/L (3.5-5.1)
--- NOTE | 2020-06-07 07:54 | EKG ---
Test Date: 2020-06-06 Test Time: 15:31:26 M[place] Floor Layer: EDUARDO MEASUREMENT RESULTS: Intervals: Rate: 69 MN: 80 QRSD: 142 QT: 462 QTc: 495 [place]: P: MN: 80 QRS: -80 T: 103 INTERPRETIVE STATEMENTS: Electronic ventricular pacemaker Compared to ECG 06/04/2020 16:38:14 Atrial-paced complex(es) or rhythm no longer present Right bundle-branch block no longer present T-wave abnormality no longer present Possible ischemia no longer present Electronically Signed On 06-07-20 07:49:50 PLANNING FEEDER by Pierce Bloom
[2020-06-07] MEDS: GABAPENTIN 100 MG CAP PO SCH ×2 (09:00→14:13)
[2020-06-07] MEDS: allopurinoL 100 MG TAB PO SCH (09:00)
[2020-06-07] MEDS: ENOXAPARIN 40 MG/0.4 ML SQ SCH (09:00)
[2020-06-07] MEDS: ASPIRIN 325 MG TAB PO SCH (09:00)
[2020-06-07] MEDS: METOPROLOL TAR 25 MG TAB PO SCH (09:54)
[2020-06-07 12:42] VITALS: BP 109/54; TEMP 97.8
--- NOTE | 2020-06-07 13:33 | P.DS ---
Admission Date: 06/04/20 Discharge Date: 06/07/20 Disposition: ROUTINE DISCHARGE Discharge Condition: FAIR Reason for Admission: Chest pain - Problems (1) Chest pain Current Visit: Yes Status: Acute (2) Elevated troponin Current Visit: Yes Status: Acute (3) Acute worsening of stage 4 chronic kidney disease Current Visit: Yes Status: Acute (4) CAD (coronary artery disease) Onset Date: 01/28/17 Current Visit: No Status: Chronic Qualifiers: (5) HTN (hypertension) Onset Date: 01/28/17 Current Visit: No Status: Chronic Qualifiers: (6) Morbid obesity Onset Date: 01/28/17 Current Visit: No Status: Chronic (7) Hypocalcemia Current Visit: Yes Status: Acute (8) Acute diastolic heart failure Current Visit: Yes Status: Acute Brief History of Present Illness: 84-year-old gentleman with a history of coronary artery disease status post stent, bradycardia, atrial fibrillation status post pacemaker Follows with a investigator operator at [facility] presented to the emergency department with a complaint of left-sided chest pain of sudden onset, intermittent end of 2 days duration. Patient denied any shortness of breath. His troponin in the emergency department was 0.3. EKG demonstrated paced rhythm. Patient was admitted for further management of NSTEMI. Hospital Course: Patient admitted to the medical floor. His troponin trended flat. Patient had hypokalemia and hypocalcemia which was corrected with IV supplementations. He was seen by nephrology, patient hydrated briefly with IV fluid. His renal function did not change with hydration. Patient was seen and evaluated by cardiology who initially planned for cardiac catheterization after his electrolytes and renal functions are optimized. Case discussed with cardiology- Dr. Bloom. No staff for cardiac suite for the cardiac catheterization today. Dr. Bloom plans to do the procedure as an outpatient. Patient has been chest pain-free. He is discharged follow with Dr. Bloom as an outpatient next week for cardiac catheterization. Noted patient is on aspirin and Eliquis. He is also on metoprolol and amiodarone which are all continued on discharge. Vital Signs/Physical Exam: Temp Pulse Resp BP Pulse Ox 97.8 F 69 16 109/54 L 97 06/07/20 12:00 06/07/20 12:00 06/07/20 12:00 06/07/20 12:00 06/07/20 12:00 General: Alert, In no apparent distress, Obese Neck: Supple, JVD not distended Respiratory: Clear to auscultation bilaterally, Normal air movement Cardiovascular: Regular rate/rhythm, Normal S1 S2, Edema (Tracing bilateral lower extremity edema) Gastrointestinal: Normal bowel sounds, Soft and benign, Non-distended Musculoskeletal: No swelling Integumentary: No rashes Neurological: Other (No focal motor deficit.) Laboratory Data at Discharge: WBC 4.50 K/uL (4.3-10.9) D 06/06/20 04:13 Hgb 12.7 g/dL (13.6-17.9) L 06/06/20 04:13 Hct 38.3 % (39.6-49.0) L D 06/06/20 04:13 Plt Count 92 K/uL (152-406) L 06/06/20 04:13 PT 13.5 SECONDS (9.5-12.5) H 06/04/20 19:00 INR 1.15 06/04/20 19:00 Sodium 144 mmol/L (136-145) 06/07/20 05:28 Potassium 4.3 mmol/L (3.5-5.1) 06/07/20 05:28 BUN 28 mg/dL (7-18) H 06/07/20 05:28 Creatinine 2.10 mg/dL (0.55-1.3) H 06/07/20 05:28 Glucose 107 mg/dL (74-106) H 06/07/20 05:28 Phosphorus 2.8 mg/dL (2.5-4.9) 06/04/20 23:20 Magnesium 2.1 mg/dL (1.8-2.4) 06/07/20 05:28 Total Bilirubin 0.6 mg/dL (0.2-1.0) 06/05/20 03:00 AST 12 U/L (15-37) L 06/05/20 03:00 ALT 11 U/L (12-78) L 06/05/20 03:00 Alkaline Phosphatase 42 U/L (45-117) L 06/05/20 03:00 Troponin I 0.30 ng/mL (0.0-0.045) H 06/07/20 05:28 Triglycerides 53 mg/dL (<150) 06/05/20 03:00 Cholesterol 90 mg/dL (<200) 06/05/20 03:00 HDL Cholesterol 51 mg/dL (40-60) 06/05/20 03:00 Cholesterol/HDL Ratio 1.76 06/05/20 03:00 Home Medications: Atorvastatin Calcium [Lipitor] 40 mg PO BEDTIME 01/28/17 Hydrocodone Bit/Acetaminophen [Hydrocodon-Acetaminophn 10-500] 1 each PO TID PRN 01/28/17 allopurinoL [Zyloprim*] 100 mg PO DAILY 01/28/17 Alprazolam [Xanax] 0.5 mg PO BID 06/12/19 Amiodarone HCl [Cordarone*] 200 mg PO BID 06/12/19 Apixaban [Eliquis *] 2.5 mg PO BID 06/12/19 Aspirin [Ecotrin 81 MG] 81 mg PO DAILY 06/12/19 Calcitrol [Rocaltrol*] 0.25 mcg PO SEECOM 06/12/19 Gabapentin 200 mg PO TID 06/12/19 Metoprolol Tartrate 25 mg PO BID 06/12/19 Levothyroxine [Synthroid*] 0.05 mg PO DAILYAC #30 tablet 06/13/19 Diet: AHA Activity: Fall precautions Followup: Unknown,U [Primary Care Provider] - Pierce Bloom MD [ACTIVE - CAN ADMIT] - (Next week Wednesday for arrangement for cardiac catheterization.)
[2020-06-07 14:31] VITALS: O2SAT 96
--- NOTE | 2020-06-07 21:19 | PN ---
Date of Progress Note: 06/06/2020 Mr. Suárez is an 84-year-old, who was admitted with acute on chronic renal failure, hypokalemia, hypoc alcemia, igo-[id number]-[id number] myocardial infarction, hypotension. He was seen by Nephrology. I have dis cussed the case with him and has been started on Mucomyst just in case a heart catheterization is lindsey nned. The patient is pain free, still have some mild congestive heart failure that was being treated . He is off Lasix right now because he appears to be dry. Mucomyst had been started. The patient w as considering a heart catheterization now that his creatinine is 1.8. I prefer we continue his medi howie regimen, send him home on beta-blockers and aspirin, and I will plan for the heart catheterizatio n as an outpatient in the very near future. I will discuss the case further with Dr. Mas. GURDEEP/FÁTIMA Voice ID: [id number] Report ID: [id number]
--- NOTE | 2020-06-07 22:34 | CON ---
Date of Consultation: 06/05/2020 History Of Present Illness: Tqy-[id number]-tvgvdpkla myocardial infarction. History Of Present Illness: Mr. Suárez is an 84-year-old male with history of coronary artery disease . He is status post pacemaker placement. He has a history of kidney disease, hypertension, dyslipid emia, CVA, gout, congestive heart failure, diabetes, atrial fibrillation, asbestosis, neuropathy. He has had multiple cardiac stents in the past. Those were done in 2006 and 2007 at [facility]. He does not recall the physician that has done it, but he does have a library circulation assistant that he sees in [facility] on a regular basis. He came in with mostly shortness of breath with some chest pain. He emi ed PND, orthopnea, pedal edema, palpitation, or syncope. By the time we saw him, he was pain free. His chest pain was nonexertional with sharp, stabbing, radiated to the back. Past Medical History: As stated above. Allergies: HE IS ALLERGIC TO BACTRIM, DEMEROL, SULFA, AND PLAVIX. Review of Systems: Negative. Social History: Negative. Family History: Noncontributory. Medications: At home include Xanax, amiodarone, Eliquis, aspirin, Lipitor, gabapentin, Synthroid, me toprolol, and allopurinol. Physical Examination: General: When I saw him, his blood pressure was 129/64, he was pain free, his pulse was 70, respirat ory rate was 16 with a temperature 97.5, he was in a paced rhythm, O2 saturation was 95% on room air. HEENT: Negative. Neck: Supple without any bruit, lymphadenopathy, JVD, or thyromegaly. Chest: Clear to auscultation and percussion. Cardiac: Regular rhythm and rate without any murmurs, gallops, or rubs. Abdomen: Benign. Extremities: No clubbing, cyanosis, or edema. Diagnostic Data: His creatinine was 2.26. His troponin was 0.33. Glucose was 124. Chest x-ray carlin wed congestive heart failure. EKG showed a paced rhythm with a right bundle-branch block pattern. Impression And Plan: Wfl-VZ-eefldobnc myocardial infarction. Certainly, his creatinine of 2.26 is c oncerning and I do not want to proceed with a heart catheterization on a patient with congestive hear t failure and renal failure. His symptoms are certainly not classic. It was sharp, stabbing pain, r adiating to the back. I would certainly prefer to treat him medically. Obtain nephrology consultati on. Get an echocardiogram. Continue his present regimen. I think once his creatinine improves, we will consider a heart catheterization, but at this time, I think he is at high risk of renal failure if we give him any contrast. His present regimen includes aspirin, Lipitor, Lasix, metoprolol, Synth roid. His Eliquis was held, but he needs to continue the amiodarone. Should also be on Lovenox. He is allergic to Plavix. We can certainly increase his metoprolol dose. His other problems including dyslipidemia, neuropathy, and gout are stable at this point. Again, we will see what the echo shows , see what Nephrology recommendations are, continue medical regimen, increase metoprolol. I will con tinue to follow him. GURDEEP/FÁTIMA Voice ID: [id number] Report ID: [id number]
[2020-06-08 13:51] LABS: Vitamin D 1,25-Dihydroxy Total 36 pg/mL (18-72); Vitamin D,1,25-OH2, D2 <8 pg/mL
[2020-06-09] MEDS ORDERED: CALCITROL 0.25 MCG CAP PO SCH (09:00)
== END 2020-06-07 15:47 | disposition home or self-care (01) | DRG 280 ==
LOC: ER 16:26 → ERHOLD 22:00 → 2ND 06-05 17:46
PROVIDERS: ADMIT Internal Medicine; ATTEND Internal Medicine
DX: I21.4 Non-ST elevation (NSTEMI) myocardial infarction (principal); I50.31 Acute diastolic (congestive) heart failure; I13.0 Hypertensive heart and chronic kidney disease with heart failure and stage 1 through stage 4 chronic kidney disease, or unspecified chronic kidney disease; E87.1 Hypo-osmolality and hyponatremia; N18.4 Chronic kidney disease, stage 4 (severe); N17.9 Acute kidney failure, unspecified; E78.5 Hyperlipidemia, unspecified; K21.9 Gastro-esophageal reflux disease without esophagitis; I48.91 Unspecified atrial fibrillation; E83.51 Hypocalcemia; E87.6 Hypokalemia; I73.9 Peripheral vascular disease, unspecified; I25.2 Old myocardial infarction; N28.9 Disorder of kidney and ureter, unspecified; I25.10 Atherosclerotic heart disease of native coronary artery without angina pectoris; R77.8 Other specified abnormalities of plasma proteins; E66.01 Morbid (severe) obesity due to excess calories; Z68.35 Body mass index [BMI] 35.0-35.9, adult; Z88.1 Allergy status to other antibiotic agents; Z88.8 Allergy status to other drugs, medicaments and biological substances; Z86.73 Personal history of transient ischemic attack (TIA), and cerebral infarction without residual deficits; Z95.5 Presence of coronary angioplasty implant and graft; Z79.82 Long term (current) use of aspirin; Z95.810 Presence of automatic (implantable) cardiac defibrillator; Z79.01 Long term (current) use of anticoagulants; Z79.890 Hormone replacement therapy; Z79.899 Other long term (current) drug therapy; Z20.822 Contact with and (suspected) exposure to COVID-19
CPT/HCPCS: 36415; 71045; 80048; 80053; 80061; 80076; 82306; 82652; 83735; 83880; 84100; 84132; 84439; 84443; 84484; 85025; 85610; 93005; 93306; 94760; 96374; 96375; 99284; J0610; J1650; J2270; J2405; J3480; U0003

== ENCOUNTER 2020-06-12 10:07 | Day surgery (SDC) | payer OTHER ==
[2020-06-12] MEDS ORDERED: NA CHLORIDE 0.9% 500 ML ONE (10:30)
--- OUTSIDE RECORDS SUMMARY | 2020-06-12 10:34 | XMS REPORT | Clinical Summary ---
:1935 Author Organization [facility] Address [address] [place] [address] Care Team Providers Name Role Phone Celena [...] (congestive heart failure) (HCC) Hypertension Stroke (HCC) MT (myocardial infarction) (HCC) Social History Tobacco Use [...] INFLUENZA VACCINE 12/09/2019 Implants Implanted Type Area Business Management Manager Device Shelf Model / Identifier Expiration Serial / Date Lot Catheter Material Hauler 8fr 75x4cm 16mm [place] - [id number] Surgical N/A: [facility] 07/07/2019 [id number] / Implanted: 04/22/2017 at [facility] (Quantity not on file) Im plants; N/A VASCULAR / Expanders; [id number] Extenders; Surgical Wires Catheter Material Hauler 6.5fr 75x4cm 14mm [place] - [id number] Surgical N/A: [facility] 06/06/2019 [id number] / Implanted: 04/22/2017 at [facility] (Quantity not on file) Im plants; N/A VASCULAR / Expanders; [id number] Extenders; Surgical Wires Stent Endprths Trchobrncl Walstnt [id number] W/ Cath 75cm - Log [id number] Surgical N/A: [facility] 02/02/2019 [id number] / Implanted: 04/22/2017 at [facility] (Quantity not on file) St ents N/A INTERVENTION / VASCULAR RONALD [id number] Stent Endprths Trchobrncl Walstnt [id number] W/ Cath 75cm - Log [id number] Surgical N/A: [facility] 02/02/2019 [id number] / Implanted: 04/22/2017 at [facility] (Quantity not on file) St ents N/A INTERVENTION / VASCULAR RONALD [id number] Stent Endprths Trchobrncl Walstnt [id number] Metal - [id number] Surg ical N/A: [facility] 01/27/2019 [id number] / Implanted: 04/22/2017 at [facility] (Quantity not on file) St ents N/A INTERVENTION / VASCULAR RONALD [id number] Stent Endprths Trchobrncl Walstnt [id number] Metal - [id number] Surg ical N/A: 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
--- OUTSIDE RECORDS SUMMARY | 2020-06-12 10:51 | XMS REPORT | Continuity of Care Document ---
:1935 Author Organization Match Information [employer] Care Team Providers Name Role Phone Match Information [employer] Unavailable Un available Problems Problem Status Onset Classification Date Comments Sourc e Date Reported RESPIRATORY Active FAILURE, CHF [address] [facility] [address] ACUTE ON CHRONIC Active CHF 019 [facility] J44.9 - CHRONIC Active O PID OBSTRUCTIVE [address] [place] PULMONARY R0 Sick sinus syndrome 10/16/2018 018 [facility] ATRIAL Active FIBRILLATION, CAD 018 [place] ALTERED MENTAL Active STATUS 017 [facility] SENT BY Active 017 [facility] ACUTE DEEP VEIN Active THROMBOSIS OF LEFT 017 [place] LOWER CHEST PAIN AFIB Active 016 [facility] CHEST TIGHTNESS Active [place]16 [place] Discharge 05/31/2015 [place] Diagnosis: Chronic 016 [place] and renal insufficiency Discharge 05/31/2015 [place] Diagnosis: Acute 016 [place] urinary tract infection UNABLE TO URINATE Active [place]16 [place] CHEST PAIN Active 015 [facility], M H [place] Discharge 02/05/2015 Diagnosis: 015 [facility] Accidental fall Discharge 02/05/2015 Diagnosis: 015 [facility] Contusion of hip FLANK PAIN Active 015 [facility] 722.93 - DISC DIS Active OP[place] NEC/NO 724.02 - 015 [place] "SPIN SPITTING UP BLOOD, Active M H [place] COUGHING UP MUCUS [address] [place] Discharge 07/08/2014 [place] Diagnosis: 015 [place] Hemoptysis 785.6 - ENLARGEMENT Active OPID LYM 014 [facility] MEDISTINAL Active LYMPADENOPATHY 014 [facility] HEMOPTYSIS Active 014 [facility] ACS, CHEST PAIN Active 014 [place] MULTIFOCAL Active PNEUMONIA, 014 [facility] HEMOPTYSIS, ACS, C A-FIB, TACHYCARDIA Active [facility] 014 [facility] MEDIASTINAL Active [place] LYMPHADENOPATHY 013 [place] 486 - "PNEUMONIA, Active OPID ORGA" 013 [place] ACUTE IA, NSTEMI Active 012 [facility] LUMBAR SPINAL Active Dariel as STENOSIS 012 [facility] LUMBAR STENOSIS, Active [facility] LUMBAR [address] [place] [address] RADICULOPATHY Center GI BLEED Active [place]12 [place] CHEST PAIN, Active THROMBOCYTOPENIA 012 [place] BIJAL Active [place]12 [place] Cardiac Active Problem 12/03/2018 [facility] catheterization 011 [place] (procedure) [facility], H [place] Cardiac Active Problem 07/23/2012 [place] catheterization 011 [facility], OPID [place],[facility], [facility] [place] ATRIAL FIB, Active UNSTABLE ANGINA 011 [place] TEAR MEDIAL Active [place] MENISCUS 011 [place] BLOOD IN STOOL Active [place] 011 [place] Illness, 12/03/2018 unspecified [place] Atrial fibrillation Active Problem 12/03/2018 [facility] (disorder) [place], [facility] [place] Asbestosis Active Problem 12/03/2018 [facility] (disorder) [place], [facility] [place] Congestive heart Active Problem 12/03/2018 OPID failure (disorder) [place],[facility], M [facility] [place] Cerebrovascular Resolved Problem 12/03/2018 [facility] accident (disorder) [place],[facility], [facility] [place] Diabetes mellitus Resolved Problem 12/03/2018 pt states he is not a diabetic OPID (disorder) PATIENT STATES HE I S NOT A DIABETIC [place] border line [facility], M [facility] [place] Dizziness (finding) Active Problem 12/03/2018 OPID [place], [facility] [place] Deep venous Active Problem 12/03/2018 OPID thrombosis of lower [place] extremity [facility], (disorder) [facility] ,M H [place] Gout (disorder) Active Problem 12/03/2018 OPID [place],[facility], [facility] [place] Hypertensive Active Problem 12/03/2018 OPI D disorder, systemic [place] arterial (disorder) [place],[facility], M [facility] [place] Myocardial Active Problem 12/03/2018 OPID infarction [place] (disorder) [place],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, [facility] [place] Morbid obesity Active Problem 12/03/2018 O PID (disorder) [place],[facility] Pain (finding) Active Problem 12/03/2018 O PID [place],[facility], [facility] [place] Pneumonia Resolved Problem 12/03/2018 OPID (disorder) [place],[facility], [facility] [place] Sleep apnea Active Problem 12/03/2018 OPID (finding) [place],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 Chronic kidney 10/16/2018 disease, stage 3 [place] (moderate) Hyperlipidemia, 10/16/2018 unspecified [place] Bronchitis, not 10/16/2018 specified as acute [place] or chronic Unspecified 10/16/2018 osteoarthritis, [place] unspecified site Gout, unspecified 10/16/2018 M H [facility] Presence of cardiac 10/16/2018 pacemaker [facility] Personal history of 10/16/2018 nicotine dependence [facility] 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, M [facility] [place] Dizziness Active Problem 08/30/2011 [facility], M H [place] Nausea Inactive Problem 07/23/2012 [facility], OPID [place],[facility], [place] AF - Atrial Active Problem 07/23/2012 [place] fibrillation [facility], OPID [place],[facility], [facility] [place] Cough Inactive Problem 07/23/2012 [facility], OPID [place],[facility], [facility] [place] Atrial fibrillation Active Problem 07/23/2012 [place] CHF - Congestive Resolved Problem 07/23/2012 [place] heart failure [place] Diabetes mellitus Active Problem 07/23/2012 H [place] Dizziness Active Problem 07/23/2012 [facility], OPID [place],[facility], [facility] [place] DVT - Deep vein Resolved Problem 07/23/2012 [facility] thrombosis of lower [place] limb [place], [place] Fusion Active Problem 07/23/2012 [facility], OPID [place],[facility], [facility] [place] HTN - Hypertension Active Problem 07/23/2012 [place] Pain Active Problem 07/23/2012 [facility], OPID [place],[facility], M [facility] [place] Sleep apnea Active Problem 07/23/2012 [place] Fused structure Active Problem 03/14/2016 (morphologic [place],M abnormality) H [place] CHEST PAIN NOS Active [place] ATRIAL FIBRILLATION Active [facility] ANGINA DECUBITUS Active [facility] SLEEP APNEA NOS Active [place] GASTROINTEST HEMORR Active [place] LUMB/LUMBOSAC DISC Active [facility] SPIN STEN,LUMBR WO Active [facility] LUMBOSACRAL Active [facility] SPONDYLOSIS [facility] AMI NOS-INITIAL Active EPISODE [place] PNEUMONIA, ORGANISM Active NOS [facility] ENLARGEMENT LYMPH Active MH NODES [facility] CHEST PAIN, Active MH UNSPECIFIED ILLNESS, Active MH UNSPECIFIED ACUTE EMBOLISM AND Active M H THOMBOS UNSP DEEP [place] VEI SYNCOPE AND Active MH COLLAPSE [facility] ANEMIA, UNSPECIFIED Active MH [facility] UNSPECIFIED ATRIAL Active M H FIBRILLATION [facility] HEART FAILURE, Active MH UNSPECIFIED BENIGN PROSTATIC Active MH HYPERPLASIA WITH [place] LOWER RECURRENT AND PERST Active MH HEMATURIA W UNSP [place] MOR Medications Medication Details Route Status Patient Ordering Order Source Instructions Provider Date carvedilol 3.125 3.125 mg = 1 Active mg oral tablet tab, PO, 2018 [facility] Q12H, 0 Refill(s) atorvastatin Notes: (Same Inactive as: Lipitor) 2019 [facility] Allopurinol Notes: (Same Inactive as: 2018 [facility] Zyloprim) gabapentin 100 Notes: (Same No Longer MG Oral Capsule as: Active 2018 [facility] Neurontin) Eliquis Notes: Same No Longer as: Eliquis Active 2018 [facility] Amiodarone Notes: (Same No Longer as: Active 2018 [facility] Cordarone) Saline Flush Notes: Same No Longer 0.9% as: BD Active 2018 [facility] Posiflush Sterile Furosemide Notes: (Same No Longer as: Lasix) Active 2018 [facility] carvedilol Notes: Give No Longer with food. Active 2018 [facility] (Same As: Coreg) Aspirin 81 [...] No Longer 0.9% as: BD Active 2018 [facility] Posiflush Sterile apixaban 2.5 MG 2.5 mg, PO, Active Oral Tablet BID, 0 2018 [facility] [Eliquis] Refill(s) atorvastatin 40 40 mg = 1 Active mg oral tablet tab, PO, 2018 [facility] Daily, 0 Refill(s) losartan 100 mg 100 mg = 1 No Longer oral tablet tab, PO, Active 2018 [facility] Daily, 0 Refill(s) Acetaminophen 1 tab, PO, Active 325 MG / Q6H, PRN 2018 [facility] Hydrocodone Pain, 0 Bitartrate 10 MG Refill(s) Oral Tablet apixaban 2.5 MG 2.5 mg, PO, Active Oral Tablet Q12H, # 60 2017 [facility] [Eliquis] tab, 0 Refill(s), called to pharmacy AMIODarone 200 200 mg = 1 Active mg oral tablet tab, PO, 2017 [facility] t BID, 0 Refill(s) metoprolol 25 mg = 1 Active tartrate 25 mg tab, PO, 2017 [facility] t oral tablet Q12H, 0 Refill(s) Amiodarone Notes: (Same No Longer as: Active 2017 [facility] Cordarone) Fentanyl 100 Inactive microgram, 2017 [facility] Route: IV, ONCE, Dosing Weight 137.727, kg, Start date: 03/28/18 14:12:00 AREA MECHANIC, Stop date: 03/28/18 14:12:00 AREA MECHANIC Midazolam 2 mg, Route: Inactive IV, ONCE, 2017 [facility] Dosing Weight 137.727, kg, Start date: 03/28/18 14:12:00 AREA MECHANIC, Stop date: 03/28/18 14:12:00 AREA MECHANIC metoprolol Notes: (Same No Longer tartrate as: Active 2017 [facility] Lopressor) Warfarin Notes: Nurse No Longer to ensure Active 2017 [facility] documentatio n of patient education per anticoagulat ion policy. Avoid large intake of vitamin-K containing foods diet. (Same As: Coumadin) WASTE: F/P - P Waste Black; E - P Waste Black metoprolol Notes: (Same Inactive tartrate as: 2017 [facility] Lopressor) Furosemide 40 MG Notes: (Same Inactive H Oral Tablet as: Lasix) 2017 [facility] May cause GI upset. Give with food or milk. Amiodarone Notes: (Same No Longer as: Active 2017 [facility] Cordarone) Warfarin Notes: Nurse Inactive to ensure 2017 [facility] documentatio n of patient education per anticoagulat ion policy. Avoid large intake of vitamin-K containing foods diet. (Same As: Coumadin) WASTE: F/P - P Waste Black; E - P Waste Black Insulin Lispro Notes: (Same No Longer as: Humalog Active 2017 [facility] ) Roll in palms of hands gently; Do not shake `vigorously. "Single Patient Use Only " WASTE: F/P - Black; E - Municipal Trash Bin Stable for 28 days at room temperature. Expires in days from __Date Glucagon 1 mg, Route: No Longer IM, Drug Active 2017 [facility] form: PDR/INJ, PRN, Dosing Weight 137.727, kg, PRN Blood Glucose Results, Start date: 03/26/18 12:50:00 AREA MECHANIC, Duration: 30 day, Stop date: 04/25/18 12:49:00 AREA MECHANIC Dextrose 50% 12.5 gm, 25 No Longer Syringe mL, Route: Active 2017 [facility] IVP, Drug Form: INJ, Dosing Weight 137.727, kg, PRN, PRN Blood Glucose Results, Start date: 03/26/18 12:50:00 AREA MECHANIC, Duration: 30 day, Stop date: 04/25/18 12:49:00 AREA MECHANIC Senokot Notes: (Same No Longer as: Senokot) Active 2017 [facility] docusate sodium Notes: (Same No Longer H 100 mg oral as: Colace) [facility] (Do Not Crush) Allopurinol Notes: (Same No Longer as: Active 2017 [facility] Zyloprim) Amoxicillin / Notes: With Inactive Clavulanate food. (Same 2017 [facility] t as: Augmentin 875) Prednisone Route: PO, Inactive Daily, 2017 [facility] Dosing Weight 137.727, kg, Start date: 03/26/18 9:00:00 AREA MECHANIC, Duration: 30 day, Stop date: 04/24/18 9:00:00 AREA MECHANIC Losartan Notes: (Same No Longer as: Cozaar) Active 2017 [facility] Aspirin 81 MG Notes: Do No Longer Enteric Coated not crush or Active 2017 [place] Tablet chew. (Same As: Ecotrin) Lovenox Notes: (Same No Longer as: Lovenox) Active 2017 [facility] atorvastatin Notes: (Same No Longer as: Lipitor) Active 2017 [facility] DuoNeb Notes: (Same No Longer inhalation as: Duoneb) Active 2017 [facility] solution Amiodarone Notes: (Same No Longer as: Active 2017 [facility] Cordarone) gabapentin 100 Notes: (Same No Longer MG Oral Capsule as: [facility] SENOKOT-S 1 tab, Inactive Route: PO, 2017 [facility] Dosing Weight 137.727, kg, BID, Start date: 03/25/18 17:00:00 AREA MECHANIC, Duration: 30 day, Stop date: 04/24/18 9:00:00 AREA MECHANIC carvedilol Notes: Give No Longer with food. Active 2017 [facility] (Same As: Coreg) 200 ACTUAT 2 puff, Inactive Albuterol 0.09 Route: 2017 [facility] MG/ACTUAT / INHALER, Ipratropium Drug Form: [place] 0.018 AERO/A, MG/ACTUAT Dosing Metered Dose Weight Inhaler 137.727, kg, [Combivent] BID, PRN Wheezing, Start date: 03/25/18 16:51:00 AREA MECHANIC, Duration: 30 day, Stop date: 04/24/18 16:50:00 AREA MECHANIC gabapentin 100 200 mg = 2 Active MG Oral Capsule cap, PO, 2017 st BID, 0 Refill(s) Warfarin See No Longer Instructions Active 2017 [facility] , 1 mg PO EVERY OTHER DAY, 0 Refill(s) Augmentin 875 mg, PO, No Longer Daily, # 20 Active 2017 [facility] tab, 0 Refill(s) carvedilol 25 mg, PO, Active BID, 0 2017 [facility] Refill(s) Losartan 100 mg, PO, No Longer Daily, 0 Active 2017 [facility] Refill(s) warfarin 2.5 mg 2.5 mg = 1 No Longer oral tablet tab, PO, Active 2017 [facility] Daily, 0 Refill(s) Prednisone See No Longer Instructions Active 2017 [facility] , 4 TABS DAILY FOR 4 DAYS SINCE WEDNESDAY,THEN 3 TABS DAILY FOR 4 DAYS,2 TABS DAILY FOR 4 DAYS,THEN 1 TAB DAILY FOR 4 DAYS, 0 Refill(s) Aspirin 81 MG 81 mg = 1 Active Enteric Coated tab, PO, 2018 [place] Tablet Daily, # 90 tab, 3 Refill(s) Losartan Notes: (Same No Longer as: Cozaar) Active 2016 [facility] Allopurinol Notes: (Same No Longer as: Active 2016 [facility] Zyloprim) atorvastatin Notes: (Same No Longer as: Lipitor) Active 2016 [facility] tamsulosin Notes: (Same No Longer As: Flomax) Active 2016 [facility] "Do Not Crush" Acetaminophen Notes: Do No Longer 300 MG / Codeine not exceed Active 2016 [place] Phosphate 30 MG 4gm/day of Oral Tablet acetaminophe [Tylenol with n. (Same Codeine #3] as: Tylenol with Codeine # 3) Furosemide Notes: (Same No Longer as: Lasix) Active 2016 [facility] May cause GI upset. Give with food or milk. SENOKOT-S 1 tab, Inactive Route: PO, 2016 [facility] Dosing Weight 145.909, kg, BID, Start date: 04/08/17 17:00:00 AREA MECHANIC, Duration: 30 day, Stop date: 05/08/17 9:00:00 AREA MECHANIC carvedilol Notes: Give No Longer with food. Active 2016 [facility] (Same As: Coreg) Senokot Notes: (Same No Longer as: Senokot) Active 2016 [facility] 200 ACTUAT Notes: Same No Longer Albuterol 0.09 as: Active 2016 [facility] MG/ACTUAT / Combivent Ipratropium Respimat [place] 0.018 WASTE: MG/ACTUAT Aerosol - Metered Dose Return to [facility] [Combivent] Insulin Lispro Notes: Roll No Longer in palms of 2016 [facility] hands gently; Do not shake `vigorously. (Same as: Humalog ) "Single Patient Use Only " WASTE: F/P - Black; E - Municipal Trash Bin Stable for 28 days at room temperature. Expires in days from __Date Glucagon 1 mg, Route: No Longer IM, Drug Active 2016 [facility] form: PDR/INJ, PRN, Dosing Weight 145.909, kg, PRN Blood Glucose Results, Start date: 04/08/17 16:41:00 AREA MECHANIC, Duration: 30 day, Stop date: 05/08/17 16:40:00 AREA MECHANIC Dextrose 50% 25 gm, 50 No Longer Syringe mL, Route: Active 2016 [facility] IVP, Drug Form: INJ, Dosing Weight 145.909, kg, PRN, PRN Blood Glucose Results, Start date: 04/08/17 16:41:00 AREA MECHANIC, Duration: 30 day, Stop date: 05/08/17 16:40:00 AREA MECHANIC carvedilol 25 mg 25 mg = 1 No Longer oral tablet tab, PO, 2016 [facility] BID, # 180 tab, 0 [...] (Same No Longer as: Norvasc) Active 2016 [facility] Potassium Notes: (Same Inactive Chloride as: K-Dur 2017 [place] 20) "Do Not Crush" With food and full glass of water tramadol Notes: Not Inactive hydrochloride 50 to exceed 2016 [facility] MG Oral Tablet 400mg/day. (Same As: Ultram) Tylenol Notes: Do No Longer not exceed 4 Active 2016 [facility] gm/day. (Same as: Tylenol) Protonix Notes: No Longer Tablet Active 2016 [facility] should not be chewed or crushed. (Same as: Protonix) Enoxaparin Notes: Nurse No Longer to ensure Active 2016 [facility] documentatio n of patient education per anticoagulat ion policy. (Same as: Lovenox) Coumadin Notes: Nurse Inactive to ensure 2016 [facility] documentatio n of patient education per anticoagulat ion policy. Avoid large intake of vitamin-K containing foods diet. (Same As: Coumadin) WASTE: F/P - P Waste Black; E - P Waste Black Potassium Notes: (Same Inactive Chloride as: K-Dur 2016 [facility] ) "Do Not Crush" With food and full glass of water argatroban 100 Notes: No Longer MG/ML Injectable Argatroban Active 2016 [place] Solution 50 mg/ 50 ml inj (1mg/1ml) WASTE: F/P - Black; E - Municipal Trash Bin MEDICATION WASTE Product Size: 50 mg Product Wasted: ___ mg bivalirudin 50 250 mg, 250 Inactive MG/ML Injectable mL, Rate: 2016 [facility] Solution Start at 0.05 mg/kg/hr, Dosing Weight 147.909, kg, Route: IV, Total Volume: 250, Start Date: 03/17/17 11:37:00 AREA MECHANIC, Duration: 30 day, Stop date: 04/16/17 11:36:00 AREA MECHANIC, Replace Every: 24 hr bivalirudin 50 250 mg, 250 Inactive MG/ML Injectable mL, Rate: 2016 [facility] Solution Start at 0.05 mg/kg/hr, Dosing Weight 147.909, kg, Route: IV, Total Volume: 250, Start Date: 03/17/17 11:35:00 AREA MECHANIC, Duration: 30 day, Stop date: 04/16/17 11:34:00 AREA MECHANIC, Replace Every: 24 hr Losartan Notes: (Same No Longer as: Cozaar) Active 2016 [facility] Furosemide Notes: (Same No Longer as: Lasix) Active 2016 [facility] May cause GI upset. Give with food or milk. carvedilol Notes: Give No Longer with food. Active 2016 [facility] (Same As: Coreg) Allopurinol Notes: (Same No Longer as: Active 2016 [facility] Zyloprim) Potassium Notes: (Same Inactive Chloride as: K-Dur 2016 [facility] 20) "Do Not Crush" With food and full glass of water Lovenox Notes: Nurse Inactive to ensure 2016 [facility] documentatio n of patient education per anticoagulat ion policy. (Same as: Lovenox) Senokot Notes: (Same No Longer as: Senokot) Active 2016 [facility] tamsulosin Notes: (Same No Longer As: Flomax) Active 2016 [facility] "Do Not Crush" SENOKOT-S 2 tab, Inactive Route: PO, 2016 [facility] Dosing Weight 147.909, kg, Bedtime, Start date: 03/16/17 21:00:00 AREA MECHANIC, Duration: 30 day, Stop date: 04/14/17 21:00:00 AREA MECHANIC atorvastatin Notes: (Same No Longer as: Lipitor) Active 2016 [facility] 200 ACTUAT Notes: Same No Longer Albuterol 0.09 as: Active 2016 [facility] MG/ACTUAT / Combivent Ipratropium Respimat [place] 0.018 WASTE: MG/ACTUAT Aerosol - Metered Dose Return to [facility] [Combivent] Streptococcus Notes: Shake Inactive pneumoniae well prior 2016 [facility] serotype 1 to use capsular antigen (Same as: diphtheria Prevnar 13) [id number] protein conjugate vaccine / Streptococcus pneumoniae serotype 14 capsular antigen diphtheria [id number] protein conjugate vaccine / Streptococcus pneumoniae serotype 18C capsular antigen d carvedilol 25 mg 25 mg = 1 No Longer oral tablet tab, PO, Active 2016 [facility] BID, 0 Refill(s) Furosemide 40 mg, PO, Active BID, 0 2016 [facility] Refill(s) tamsulosin 0.4 mg, PO, Active Bedtime, 0 2016 [facility] Refill(s) Losartan 100 mg, PO, Active Daily, 0 2016 Refill(s) sodium chloride 1,000 mL, No Longer 0.9% 1000 ml INJ Rate: 75 Active 2016 [facility] est 1,000 mL ml/hr, Infuse over: 13.3 hr, Route: IV, Dosing Weight 147.909 kg, Total Volume: 1,000, Start date: 03/16/17 17:43:00 AREA MECHANIC, Duration: 30 day, Stop date: 04/15/17 17:42:00 AREA MECHANIC Lovenox Notes: Nurse Inactive to ensure 2016 [facility] documentatio n of patient education per anticoagulat ion policy. (Same as: Lovenox) carvedilol 25 mg 25 mg = 1 Active oral tablet tab, PO, 2015 [facility] Q12H, # 180 tab, 0 Refill(s) AMIODarone 200 200 mg = 1 Active mg oral tablet tab, PO, 2015 [facility] t BID-Meals, # 90 tab, 0 Refill(s) Amlodipine Notes: (Same Inactive as: Norvasc) 2015 carvedilol Notes: Give No Longer with food. Active 2015 [facility] (Same As: Coreg) Amiodarone Notes: (Same No Longer as: Active 2015 [facility] Cordarone) Sodium Chloride 250 mL, No Longer 0.9% IV Route: IVPB, Active 2015 [facility] Start date: 03/10/16 15:01:00 CDT, Duration: 30 day, Stop date: 04/09/16 14:00:00 AREA MECHANIC, PRN Line Flush BD Normal Saline Notes: (Same No Longer Flush as: BD Active 2015 [facility] Posiflush) Losartan Notes: (Same No [...] MG / Clavulanate food. (Same Active 2015 [facility] thwest 125 MG Oral as: Tablet Augmentin 875) Amlodipine Notes: (Same Inactive as: Norvasc) 2015 [facility] Allopurinol Notes: (Same No Longer as: Active 2015 [facility] Zyloprim) Lyrica Notes: (Same No Longer as: Lyrica) Active 2015 [facility] SENOKOT-S 2 tab, Inactive Route: PO, 2015 [facility] Dosing Weight 132.727, kg, Bedtime, Start date: 03/09/16 21:00:00 CDT, Duration: 30 day, Stop date: 04/07/16 21:00:00 [employer] atorvastatin Notes: (Same No Longer as: Lipitor) Active 2015 [facility] Alprazolam 0.5 Notes: With No Longer MG Oral Tablet food or milk [facility] (Same as: Xanax) Senokot Notes: (Same No Longer as: Senokot) Active 2015 [facility] Colchicine 0.6 0.6 mg, 1 No Longer MG Oral Tablet tab, Route: Active 2015 [facility] PO, Drug form: TAB, BID, Dosing Weight 132.727, kg, PRN Shortness of breath, Start date: 03/09/16 19:58:00 CDT, Duration: 30 day, Stop date: 04/08/16 19:57:00 [employer] 200 ACTUAT Notes: Same No Longer Albuterol 0.09 as: Active 2015 [facility] MG/ACTUAT / Combivent Ipratropium Respimat [place] 0.018 WASTE: MG/ACTUAT Aerosol - Metered Dose Return to [facility] [Combivent] acetaminophen-hy Notes: (Same No Longer drocodone 325 as: [place] Active 2015 [facility] t mg-5 mg oral 325/5) Do tablet not exceed 4gm/day of acetaminophe n. Amoxicillin 875 1 tab, PO, No Longer MG / Clavulanate BID, # 20 Active 2015 [facility] 125 MG Oral tab, 0 Tablet Refill(s) Hydralazine 50 mg = 1 No Longer Hydrochloride 50 tab, PO, Active 2015 [facility] est MG Oral Tablet TID, # 90 [...] MG/ML / as: Duoneb) Active 2015 Ipratropium [place] 0.167 MG/ML Inhalant Solution [DuoNeb] Nitroglycerin Notes: (Same No Longer Sugar 0.4 MG as:Nitroquic Active 2015 [facility]ling[facility] k, Tablet Nitrostat) "Do Not Crush" Sublingual tablet Enoxaparin Notes: (Same No Longer Sug ar as: Lovenox) Active 2015 [facility] Docusate Notes: (Same No Longer Sugar as: Colace) Active 2015 (Do Not Crush) Acetaminophen Notes: Do No Longer Sug ar not exceed 4 Active 2015 [facility] gm/day. (Same as: Tylenol) Ondansetron Notes: (Same No Longer Blake gar as: Zofran) Active 2015 [facility] Product Size: 4 mg Product Wasted: ___ mg Morphine Notes: (Same No Longer Sugar as:MORPhine Active 2015 [facility] Sulfate) Acetaminophen Notes: (Same No Longer Sugar 325 MG / as: [place] Active 2015 Hydrocodone 325/5) Do Bitartrate 5 MG not exceed Oral Tablet 4gm/day of acetaminophe n. Lasix Notes: (Same Inactive Sugar as: Lasix) 2015 [facility] Product Size: 40 mg Product Wasted: __20_ mg Aspirin Notes: Take Inactive Sugar with food. 2015 Nitroglycerin Notes: (Same No Longer Sugar as:Nitroquic Active 2015 [facility] k, Nitrostat) "Do Not Crush" Sublingual tablet Saline Flush Notes: (Same No Longer S ugar 0.9% as: BD Active 2015 [facility] Posiflush) Nitrofurantoin 100 mg = 1 Active Sug ar 100 MG Oral cap, PO, 2015 [facility] Capsule BID, X 10 [Macrobid] day, # 20 cap, 0 Refill(s) Rocephin Notes: (Same Inactive Sugar As: 2015 Rocephin). Use with 100 mL NS and infuse over 30 min MEDICATION WASTE Product Size: 1000 mg Product Wasted: ___ mg Keflex 500 mg, No Longer Route: PO, Active 2014 [facility] Drug form: CAP, ABXQ6H, Dosing Weight 130.004, kg, Start date: 04/24/15 16:14:00, Duration: 30 day, Stop date: 05/24/15 10:14:00 Cephalexin 500 500 mg = 1 Active MG Oral Capsule cap, PO, 2014 [facility] [Keflex] QID, X 5 day, # 20 cap, 0 Refill(s) Cefazolin 1 gm, 100 No Longer mL, Route: Active 2014 [facility] IVPB, Drug form: INJ, ABXQ8H, Dosing Weight 130.004, kg, Start date: 04/23/15 17:00:00, Duration: 3 doses or times, Stop date: 04/24/15 9:00:00 morphine Sulfate Notes: (Same No Longer as:MORPhine Active 2014 [facility] Sulfate) Senokot Notes: (Same No Longer as: Senokot) Active 2014 [facility] SENOKOT-S 2 tab, Inactive Route: PO, 2014 [facility] Dosing Weight 130.004, kg, Bedtime, Start date: 04/21/15 21:00:00, Duration: 30 day, Stop date: 05/20/15 21:00:00 atorvastatin Notes: (Same No Longer as: Lipitor) Active 2014 [place] 0.6 0.6 mg, 1 No Longer MG Oral Tablet tab, Route: Active 2014 [facility] PO, Drug form: TAB, Daily, Dosing Weight 130.004, kg, PRN Pain Score 4-6, Start date: 04/21/15 12:20:00, Stop date: 05/21/15 12:19:00 Colchicine 0.6 0.6 mg = 1 Active MG Oral Tablet tab, PO, 2014 [facility] t Daily, PRN Other -See Comment, For GOUT flare up, 0 Refill(s) Amoxicillin 875 Notes: With No Longer MG / Clavulanate food. (Same Active 2014 [facility] 125 MG Oral as: Tablet Augmentin 875) Amlodipine Notes: (Same No Longer as: Norvasc) Active 2014 [facility] Amiodarone Notes: (Same No Longer as: Active 2014 [facility] Cordarone) [place] 0.6 0.6 mg, 1 Inactive MG Oral Tablet tab, Route: 2014 [facility] PO, Drug form: TAB, Daily, Dosing Weight 130.004, kg, Start date: 04/21/15 9:00:00, Duration: 30 day, Stop date: 05/20/15 9:00:00 Furosemide 40 MG Notes: (Same No Longer Oral Tablet as: Lasix) Active 2014 May cause GI upset. Give with food or milk. Lovenox Notes: (Same No Longer as: Lovenox) Active 2014 [facility] metoprolol Notes: (Same No Longer as: Toprol Active 2014 [facility] XL) May split tab, but do not crush. gabapentin 300 Notes: (Same No Longer MG Oral Capsule as: Active 2014 [facility] t Neurontin) Hydralazine Notes: (Same No Longer as: Active 2014 Apresoline) May interfere w/enteral feedings Take With Food Lyrica Notes: Same No Longer as Lyrica Active 2014 [facility] 200 ACTUAT Notes: Same No Longer Albuterol 0.09 as: Active 2014 MG/ACTUAT / Combivent Ipratropium Respimat [place] 0.018 MG/ACTUAT Metered Dose Inhaler [Combivent] Alprazolam [...] / Clavulanate BID, # 20 Active 2014 [facility] 125 MG Oral tab, 0 Tablet Refill(s) [...] No Longer Flush as: BD Active 2014 [facility] Posiflush) acetaminophen-co Notes: Do No Longer deine 300 mg-30 not exceed Active 2014 [facility] mg oral tablet 4gm/day of acetaminophe n. (Same as: Tylenol with Codeine # 3) tramadol 50 mg = 1 No Longer hydrochloride 50 tab, PO, Active 2014 [facility] est MG Oral Tablet Q4H, PRN [Ultram] pain, # 20 tab, 0 Refill(s) Acetaminophen Notes: (Same Inactive 325 MG / as: [place] 2014 [facility] Hydrocodone 325/5) Do Bitartrate 5 MG not exceed Oral Tablet 4gm/day of [[place] 5/325] acetaminophe n. Saline Flush Notes: (Same Inactive 0.9% as: BD 2014 [facility] Posiflush) Barium Sulfate Notes: Same Inactive as Readi-Cat 2014 [facility] 2 Morphine Notes: (Same Inactive as:MORPhine 2014 [facility] Sulfate) Saline Flush Notes: (Same Inactive Blake gar 0.9% as: 2014 [facility] Posiflush) acetaminophen-co Notes: Do Inactive deine #3 not exceed 2013 [facility] 4gm/day of acetaminophe n. (Same as: Tylenol with Codeine # 3) Acetaminophen Notes: Do Inactive not exceed 4 2013 [facility] gm/day. (Same as: Tylenol) gabapentin 300 600 mg = 2 Active MG Oral Capsule cap, PO, [address] [facility] [address] TID, 0 Refill(s) Zinacef Notes: (Same No Longer As: Kefurox, Active 2013 [facility] Zinacef) Hydralazine Notes: (Same Inactive Hydrochloride 50 as: [address] [facility] [address] MG Oral Tablet Apresoline) May interfere [...] Bumex Notes: (Same Inactive As: Bumex) 2013 [facility] Neurontin Notes: (Same No Longer as: Active 2013 [facility] Neurontin) gabapentin 400 400 mg = 1 Active MG Oral Capsule cap, PO, [address] [facility] [address] TID, # 90 cap, 0 Refill(s) Pradaxa Notes: DO Inactive NOT break, 2013 [facility] chew or open capsules for administrati on. 120 ACTUAT 2 Active Budesonide 0.16 inhalation, 2013 [facility] MG/ACTUAT / INHALATION, formoterol Q12H, # 10 fumarate 0.0045 gm, 0 MG/ACTUAT Refill(s) Metered Dose Inhaler [Symbicort] valsartan 160 mg 160 mg = 1 No Longer oral tablet tab, PO, Active 2013 [facility] Daily, # 30 tab, 0 Refill(s) Furosemide 40 MG 40 mg = 1 Active Oral Tablet tab, PO, 2013 [facility] BID, # 60 tab, 0 Refill(s) Lasix Notes: (Same No Longer as: Lasix) Active 2013 May cause GI upset. Give with food or milk. Diovan Notes: Same No Longer as Diovan Active 2013 [facility] homatropine-hydr Notes: (Same No Longer ocodone as: Hycodan, Active 2013 [facility] Hydromet) 120 ACTUAT Notes: (Same No Longer Budesonide 0.16 as: Active 2013s t MG/ACTUAT / Symbicort) formoterol fumarate 0.0045 MG/ACTUAT Metered Dose Inhaler [Symbicort] 12 HR 5 ml, Route: Inactive Chlorpheniramine PO, Drug 2013 [facility] est Maleate 1.6 Form: MG/ML / SUSPER, Hydrocodone Dosing Bitartrate 2 Weight MG/ML Extended 127.1, kg, Release Q12H, PRN as Suspension needed for [Tussionex cough, Start [facility]] date: 03/02/14 10:08:00, Duration: 30 day, Stop date: 04/01/14 10:07:00 Albuterol 0.833 Notes: (Same No Longer H MG/ML / as: Duoneb) Active 2013 [facility] Ipratropium [place] 0.167 MG/ML Inhalant Solution [DuoNeb] Lasix Notes: (Same Inactive as: Lasix) 2013 [facility] Norvasc Notes: (Same No Longer as: Norvasc) Active 2013 [facility] cefpodoxime 200 200 mg = 1 Active MG Oral Tablet tab, PO, 2013 [facility] t [Vantin] Q12H, # 14 tab, 0 Refill(s) Robitussin-AC 5 mL, PO, Active oral syrup Q4H, Cough, 2013 [facility] # 120 mL, 0 Refill(s) Amlodipine 10 MG 10 mg, PO, Active Oral Tablet Daily, # 30 2013 [facility] t [Norvasc] tab, 0 Refill(s) Lasix Notes: (Same Inactive as: Lasix) 2013 [facility] Procrit Notes: (Same No Longer as: Procrit) Active 2013 [facility] epoetin dottie 10,000 unit/1 ml VL Flumazenil Notes: (Same No Longer as: Active 2013 [facility] Romazicon) Naloxone Notes: (Same No Longer as: Narcan) Active 2013 [facility] 05/11 NS 500 mL 500 mL, Inactive Rate: 75 2013 [facility] ml/hr, Infuse over: 6.7 hr, Route: IV, Dosing Weight 127.1 kg, Total Volume: 500, Start date: 02/28/14 9:08:00, Duration: 6 hr, Stop date: 02/28/14 15:07:00 Magnesium Notes: (Same Inactive Sulfate as: MgSO4) 2013 [facility] Hydralazine Notes: (Same No Longer Hydrochloride 50 as: Active [address] [facility] [address] MG Oral Tablet Apresoline) May interfere w/enteral feedings Take With Food Jessica Brooks Notes: (Same No Longer H As: Tessalon Active 2013 [facility] Perles) "Do Not Crush" Budesonide 0.25 Notes: (Same No Longer H MG/ML Inhalant As: Active 2013 [facility] Solution Pulmicort) [Pulmicort] Protonix Notes: No Longer Tablet Active 2013 [facility] should not be chewed or crushed. (Same as: Protonix) Allopurinol Notes: (Same No Longer as: Active 2013 [facility] Zyloprim) Magnesium 2 gm, 50 mL, Inactive Sulfate Route: IVPB, 2013 [facility] Drug form: INJ, ONCE, Dosing Weight 127.1, kg, Total dose = 2 gm, Start date: 02/27/14 7:19:00, Duration: 1 doses or times, Stop date: 02/27/14 7:19:00 Hydralazine Notes: (Same Inactive Hydrochloride 50 as: [address] [facility] [address] MG Oral Tablet Apresoline) May interfere w/enteral feedings Take With Food atorvastatin 40 mg, Inactive Route: PO, 2013 [facility] Drug form: TAB, Bedtime, Dosing Weight 126.3, kg, Start date: 02/26/14 21:00:00, Duration: 30 day, Stop date: 03/27/14 21:00:00 isosorbide Notes: (Same No Longer dinitrate as:Isordil) Active 2013 [facility] extended release Take on empty stomach/ full glass of water. Do not crush. Albuterol 0.833 Notes: (Same No Longer H MG/ML / as: Duoneb) 2013 [facility] Ipratropium [place] 0.167 MG/ML Inhalant Solution [DuoNeb] Coreg Notes: Give No Longer with food. Active 2013 [facility] (Same As: Coreg) Acetylcysteine 600 mg, 3 No Longer 200 MG/ML mL, Route: Active 2013 [facility] Inhalant NEB, Drug Solution Form: SOLN, Dosing Weight 126.3, kg, RQID, Start date: 02/26/14 19:00:00, Duration: 30 day, Stop date: 03/28/14 15:00:00 Azithromycin Notes: (Same No Longer As: Active 2013 [facility] Zithromax IV) Ceftriaxone Notes: (Same No Longer As: Active 2013 [facility] Rocephin). Use with 100ml NS mini-bag PLUS and infuse over 30 min Robitussin-AC Notes: (Same No Longer oral syrup As: Active 2013 [facility] Robitussin AC) Albuterol 0.833 Notes: (Same No Longer H MG/ML / as: Duoneb) Active 2013 [facility] Ipratropium [place] 0.167 MG/ML Inhalant Solution [DuoNeb] Acetylcysteine 600 mg, 3 No Longer 200 MG/ML mL, Route: Active 2013 [facility] Inhalant PO, Drug Solution form: SOLN, BID, Dosing Weight 126.3, kg, Priority: NOW, Start date: 02/26/14 17:10:00, Duration: 1 day, Stop date: 02/27/14 17:00:00 Amiodarone 200 mg, Inactive Route: PO, 2013 [facility] Drug form: TAB, BID, Dosing Weight 126.3, kg, Start date: 02/26/14 17:00:00, Duration: 30 day, Stop date: 03/28/14 9:00:00 carvedilol 12.5 mg, Inactive Route: PO, 2013 [facility] Drug form: TAB, BID, Dosing Weight 126.3, kg, Start date: 02/26/14 17:00:00, Duration: 30 day, Stop date: 03/28/14 9:00:00 gabapentin 400 Notes: (Same No Longer MG Oral Capsule as: [facility] Neurontin) tramadol Notes: Not No Longer hydrochloride 50 to exceed Active 2013 [facility] MG Oral Tablet 400mg/day. (Same As: Ultram) Alprazolam Notes: With No Longer food or milk Active 2013 [facility] (Same as: Xanax) 200 ACTUAT Notes: Same No Longer Albuterol 0.09 as: Active 2013 [facility] MG/ACTUAT / Combivent Ipratropium Respimat [place] 0.018 MG/ACTUAT Metered Dose Inhaler [Combivent] Cordarone Notes: (Same No Longer as: Active 2013 [facility] Cordarone) Coreg Notes: Give Inactive with food. 2013 [facility] (Same As: Coreg) atorvastatin 40 [...] Longer 0.9% IV Route: IVPB, Active 2013 [facility] Start date: 02/26/14 2:42:00, Duration: 30 day, Stop date: 03/28/14 1:41:00, PRN Line Flush BD Normal Saline Notes: (Same No Longer Flush as: BD Active 2013 [facility] Posiflush) aspirin Notes: Take No Longer with food. Active 2013 [facility] Ondansetron Notes: (Same No Longer as: Zofran) Active 2013 [facility] Morphine Notes: (Same No Longer as:MORPhine Active 2013 [facility] Sulfate) aspirin Notes: Take Inactive with food. 2013 [facility] Morphine Notes: (Same No Longer as:MORPhine Active 2013 [facility] Sulfate) atorvastatin 20 40 mg = 2 Active MH mg oral tablet tab, PO, 2013s Bedtime, # 60 tab, 0 Refill(s) AMIODarone 200 200 mg = 1 Active [facility] mg oral tablet tab, PO, 2013s t BID, # 60 tab, 0 Refill(s) dabigatran 150 mg = 1 Active etexilate 150 MG cap, PO, 2013 [facility] est Oral Capsule BID, # 60 [Pradaxa] cap, 0 Refill(s) carvedilol 12.5 12.5 mg = 1 Active mg oral tablet tab, PO, 2013 [facility] t BID, # 60 tab, 0 Refill(s) Docusate Sodium Notes: (Same No Longer H 100 MG Oral as: Colace) Active 2013 [facility] t Capsule [Colace] (Do Not Crush) Coreg Notes: Give No Longer with food. Active 2013 [facility] (Same As: Coreg) Cordarone Notes: (Same No Longer as: Active 2013 [facility] Cordarone) Magnesium 2 gm, 50 mL, Inactive Sulfate Route: IV2013 [facility] Drug form: INJ, ONCE, Dosing Weight 119.801, kg, Start date: 01/27/14 8:07:00, Duration: 2 hr, Stop date: 01/27/14 8:07:00 Lipitor Notes: (Same No Longer As: Lipitor) Active 2013 [facility] Magnesium 2 gm, 50 mL, Inactive Sulfate Route: IV2013 [facility] Drug form: INJ, ONCE, Dosing Weight 119.801, kg, Total dose = 2 gm, Start date: 01/26/14 19:17:00, Duration: 1 doses or times, Stop date: 01/26/14 19:17:00 AMIODarone 900 2 mg/ml. No Longer mg in D5W 500 ml Use Glass Active 2013 [facility] IV 900 mg + Bottle or Dextrose 5% in Non PVC Bag Water IV 482 mL "Use 0.22 micron in-line filter" Amiodarone 2 mg/ml. Inactive "Recommendat 2013 [facility] ion: Use an in-line filter during administrati on for continuous infusions to reduce the incidence of phlebitis" (Same as: Cordarone) Pradaxa Notes: DO No Longer NOT break, Active 2013 [facility] chew or open capsules for administrati on. Aspirin 81 MG Notes: Do No Longer Enteric Coated not crush or Active [facility] Tablet chew. (Same As: Ecotrin) gabapentin 400 Notes: (Same No Longer MG Oral Capsule as: Active 2013 [facility] t [Neurontin] Neurontin) Digoxin Notes: Take Inactive on an Empty 2013 [facility] Stomach (Same as: Lanoxin) Coreg Notes: Give No Longer with food. Active 2013 [facility] (Same As: Coreg) Nitroglycerin Notes: 1 No Longer 0.02 MG/MG gram is Active 2013 [facility] Topical Ointment approximatel y 1 inch of nitroglyceri n ointment (20 mg NTG per gram) (Same as:Nitro-Bid ) Protonix Notes: No Longer Tablet Active 2013 [facility] should not be chewed or crushed. (Same as: Protonix) tramadol Notes: Not No Longer hydrochloride 50 to exceed Active 2013 [facility] MG Oral Tablet 400mg/day. (Same As: Ultram) Alprazolam Notes: With No Longer food or milk Active 2013 [facility] (Same as: Xanax) Morphine Notes: (Same No Longer as: MORPhine Active 2013 [facility] Sulfate) Acetaminophen Notes: (Same No Longer 325 MG / as: [place] Active 2013 [facility] Hydrocodone 325/5) Do Bitartrate 5 MG not exceed Oral Tablet 4gm/day of [[place] 5/325] acetaminophe n. Lasix Notes: (Same Inactive as: Lasix) 2013 [facility] Zofran Notes: (Same No Longer as: Zofran) Active 2013 [facility] Tylenol Notes: Do No Longer not exceed 4 Active 2013 [facility] gm/day. (Same as: Tylenol) Hydralazine Notes: (Same No Longer as: Active 2013 [facility] Apresoline) Push over 5 minutes Sodium Chloride 250 mL, No Longer 0.9% IV Route: IVPB, Active 2013 [facility] Start date: 01/26/14 6:20:00, Duration: 30 day, Stop date: 02/25/14 6:19:00, PRN Line Flush BD Normal Saline Notes: (Same No Longer Flush as: BD Active 2013 [facility] Posiflush) digoxin Notes: (Same Inactive as: Lanoxin) 2013 [facility] dabigatran PO, BID, 0 No Longer etexilate 150 MG Refill(s) Active 2013 [facility] Oral Capsule [Pradaxa] Protonix 40 mg, PO, Active Daily, # 30 2013 [facility] tab, 0 Refill(s) gabapentin 400 PO, BID, 0 Active MG Oral Capsule Refill(s) 2013 [facility] est [Neurontin] tramadol PO, Q12H, Active hydrochloride 50 Pain, [address] [facility] [address] MG Oral Tablet Refill(s) 200 ACTUAT INHALER, Active Albuterol 0.09 SOB, 0 2013 [facility] MG/ACTUAT / Refill(s) Ipratropium [place] 0.018 MG/ACTUAT Metered Dose Inhaler [Combivent] Digoxin 125 No Longer microgram, Active 2013 [facility] PO, Daily, 0 Refill(s) carvedilol 25 MG 25 mg = 1 No Longer Oral Tablet tab, PO, Active 2013 [facility] [Coreg] BID, # 180 tab, 0 Refill(s) [place] 10/325 PO, PRN, PO Active Sugar oral tablet Substitution 2012 [facility], Maintenance Protonix 40 mg PO, Daily, PO Active Sug ar oral enteric Substitution 2012 [facility] coated tablet Allowed enalapril 5 mg PO, BID, PO Active Sugar oral tablet Substitution 2012 [facility] Coumadin 4 mg PO, Daily, PO Active Suga r oral tablet Substitution 2012 [facility] Omnipaque 300 100 mL, 400 IV Active Melo OPI D ml/hr, 2012 [place] Route: IV, Drug Form: SOLN, ONCE, Start date: 07/11/12 12:00:00, Stop date: 07/11/12 12:00:00 Omnipaque 300 100 mL, 400 IV Active [facility] ml/hr, 2012 [place] Route: IV, Drug Form: SOLN, ONCE, Start date: 07/11/12 11:40:00, Stop date: 07/11/12 11:40:00 Neurontin 600 mg, 2 PO No Longer Catalan 10/20/ MH cap, Route: Active 2011 [facility] PO, Drug form: CAP, TID, Start date: 02/27/12 9:00:00, Duration: 30 day, Stop date: 03/27/12 17:00:00 Demadex 10 mg, 1 PO No Longer [place] 10/20/ MH tab, Route: Active 2011 [facility] PO, Drug form: TAB, Daily, Start date: 02/27/12 9:00:00, Duration: 30 day, Stop date: 03/27/12 9:00:00 Xanax 0.5 mg, 0.5 PO No Longer [place] 10/20/ MH tab, Route: Active 2011 [facility] PO, Drug form: TAB, Daily, Start date: 02/26/12 19:50:00, Duration: 30 day, Stop date: 03/27/12 9:00:00 Betapace 80 mg, 1 PO No Longer [place] 10/20/ MH tab, Route: Active 2011 [facility] PO, Drug form: TAB, BID, Start date: 02/26/12 19:49:00, Duration: 30 day, Stop date: 03/27/12 17:00:00 Phenergan 25 mg, 1 PO No Longer [place] 10/20/ MH tab, Route: Active 2011 [facility] PO, Drug form: TAB, Q6H, PRN Nausea & Vomiting, Start date: 02/26/12 19:46:00, Duration: 30 day, Stop date: 03/27/12 19:45:00 Protonix 40 mg, 1 PO No Longer [place] 10/20/ MH tab, Route: Active 2011 [facility] PO, Drug form: ECTAB, Before Dinner, Start date: 02/26/12 19:46:00, Duration: 30 day, Stop date: 03/27/12 16:30:00 acetaminophen-hy 1 tab, PO No Longer [place] 10/20/ MH drocodone 325 Route: PO, Active [address] [facility] [address] mg-10 mg oral Drug Form: tablet TAB, Q6H, PRN Pain Score 4-6, Start date: 02/26/12 19:45:00, Duration: 30 day, Stop date: 03/27/12 19:44:00 Zaroxolyn 5 mg, 2 tab, PO No Longer [place] 10/20/ MH Route: PO, Active 2011 [facility] Drug form: TAB, Daily, Start date: 02/26/12 19:44:00, Duration: 30 day, Stop date: 03/27/12 9:00:00 Lipitor 10 mg, 1 PO No Longer [place] tab, Route: Active 2011 [facility] PO, Drug form: TAB, Daily, Start date: 02/26/12 19:43:00, Duration: 30 day, Stop date: 03/27/12 9:00:00 Prinivil 2.5 mg, 0.5 PO No Longer [place] tab, Route: Active 2011 [facility] PO, Drug form: TAB, Daily, Start date: 02/26/12 9:00:00, Duration: 30 day, Stop date: 03/26/12 9:00:00 Lopressor 25 mg, 1 PO No Longer [place] tab, Route: Active 2011 [facility] PO, Drug form: TAB, Q12H, Start date: 02/26/12 9:00:00, Duration: 30 day, Stop date: 03/26/12 21:00:00 aspirin 325 mg 325 mg, 1 PO No Longer [place] tablet tab, Route: Active 2011 [facility] PO, Drug form: TAB, Daily, Start date: 02/26/12 9:00:00, Duration: 30 day, Stop date: 03/26/12 9:00:00 Lovenox 120 mg, 0.8 SUB-Q No Longer [place] mL, Route: Active 2011 [facility] SUB-Q, Drug form: INJ, [id number], Start date: 02/26/12 1:00:00, Duration: 30 day, Stop date: 03/26/12 13:00:00 morphine Sulfate 4 mg, 0.5 IV No Longer [place] mL, Route: Active 2011 [facility] Hospital IV, Drug form: INJ, Q4H, PRN Pain, Start date: 02/26/12 0:46:00, Duration: 30 day, Stop date: 03/27/12 0:45:00 nitroglycerin 0.4 mg, 1 SL No Longer Catalan MH 0.4 mg tab, Route: Active 2011 [facility] sublingual SL, Drug tablet form: TAB, Q5Min, PRN Chest Pain, Start date: 02/26/12 0:46:00, Duration: 30 day, Stop date: 03/26/12 23:45:00 Sodium Chloride 250 mL, IVPB No Longer Catalan 0.9% IV Route: IVPB, Active 2011 [facility] Start date: 02/26/12 0:45:00, Duration: 30 day, Stop date: 03/26/12 23:44:00, PRN Line Flush BD Normal Saline 10 mL, IVP No Longer Catalan Flush Route: IVP, Active 2011 [facility] Drug Form: INJ, PRN, PRN Line Flush, Start date: 02/26/12 0:45:00, Duration: 30 day, Stop date: 03/26/12 23:44:00 [place] 10/325 1 tab, PO, PO Active Judith-P Dariel as oral tablet Q6H, PRN, 40 [facility] 2011 Medical tab, for Center pain, Substitution Allowed, Soft Stop, TAB Medrol Dosepak 4 As directed PO Active Judith-P H [place] mg Tablet on package [facility] 2011 Medical instructions Center , PO, Daily, 1 Pack, Substitution Allowed, Take with or without foodTake with or without food [place] 5/325 oral 1 tab, PO No Longer [...] 1,000 mL, IV No Longer Francisco Javier [facility] Rate: 75 Active 2011 Medical ml/hr, [facility] Infuse over: 13.3 hr, Route: IV, Dosing Weight 119.091 kg, Total Volume: 1,000, Start date: 12/05/11 8:34:00, Duration: 30 day, Stop date: 01/04/12 8:33:00 cefazolin + 2 gm, Route: IVPB [facility] [place] Sodium Chloride IVPB, Drug Active 2011 Medic al 0.9% IV 100 mL form: [facility] PDR/INJ, [id number], Start date: 12/05/11 6:00:00, Duration: 4 doses or times, Stop date: 12/06/11 6:00:00 dexamethasone 4 mg, 1 mL, IV No Longer [facility] [place] Route: IV, Active 2011 Medical Drug form: [facility] INJ, Q6H, Start date: 12/05/11 6:00:00, Duration: 12 doses or times, Stop date: 12/08/11 0:00:00 magnesium 2 gm, 50 mL, IVPB [place] Longer [facility] [place] sulfate Route: IVPB, Active 2011 Medical Drug form: [facility] INJ, ONCE, Start date: 12/05/11 5:00:00, Stop date: 12/05/11 5:00:00 Dilaudid 0.5 mg, 0.25 IV No Longer Judith-P Dariel as mL, Route: Active alba 2011 Medical IV, Drug Center form: INJ, Q3H, PRN Pain Score 4-6, Start date: 12/05/11 2:05:00, Duration: 30 day, Stop date: 01/04/12 2:04:00 ondansetron 4 mg, 2 mL, IVP No Longer Francisco Javier 12/04[facility] Dariel as Route: IVP, Active 2011 Medical Drug form: Center INJ, ONCE, PRN Nausea & Vomiting, Start date: 12/04/11 23:51:00 hydromorphone 0.5 mg, 0.25 IVP No Longer [place] 12/04[facility] [place] mL, Route: Active 2011 Medical IVP, Drug Center form: INJ, Q5Min, PRN Pain Score 4-6, Start date: 12/04/11 23:51:00, Duration: 5 doses or times, Stop date: Limited # of times naloxone 0.04 mg, 0.1 IVP No Longer [place] 12/04[facility] mL, Route: Active 2011 Medical IVP, Drug Center form: INJ, Q2MIN, PRN Narcotic Reversal, Start date: 12/04/11 23:51:00, Duration: 8 doses or times, Stop date: Limited # of times flumazenil 0.2 mg, 2 IVP No Longer [place] 12/04[facility] mL, Route: Active 2011 Medical IVP, Drug Center form: INJ, PRN, PRN Benzodiazepi ne Reversal, Initial dose, Start date: 12/04/11 23:51:00, Duration: 30 day, Stop date: 01/03/12 23:50:00 niCARdipine 0.25 mg, 0.1 IVP No Longer Lexie 12/04[facility] [place] mL, Route: Active 2011 Medical IVP, Drug Center form: INJ, Q5Min, PRN Elevated BP, Start date: 12/04/11 23:51:00, Duration: 4 doses or times, Stop date: 12/05/11 4:00:00 NS + KCL 20mEq/L 1,000 mL, IV No Longer Francisco Javier 12/03[facility] [place] 1000ml (Premix) Rate: 100 Active [...] Route: IV, Active 2011 Medical Start date: [facility] 12/03/11 17:14:00, Duration: 30 day, Stop date: 01/02/12 17:13:00, PRN Blood Glucose Results Dextrose 50% in 25 mL, IV No Longer Lovy Dariel as [place] IV Route: IV, Active 2011 Medical Start date: [facility] 12/03/11 17:00:00, Duration: 30 day, Stop date: [...] 9:00:00 Combivent 2 INHALER No Longer Lovy [facility] inhalation inhalation, Active 2011 Medical aerosol with Route: Center adapter INHALER, Drug Form: AERO/A, Daily, Start date: 12/02/11 9:00:00, Duration: 30 day, Stop date: 12/31/11 9:00:00 lisinopril 10 mg, 1 PO No Longer Lovy [facility] tab, Route: Active 2011 Medical PO, [...] 10 mg, 1 PO No Longer Lovy [facility] tab, Route: Active 2011 Medical PO, Drug Center form: TAB, QPM, Start date: 12/01/11 21:00:00, Duration: 30 day, Stop date: 12/31/11 17:00:00 promethazine 25 mg, 1 PO No Longer Lovy 12/01[facility] tab, Route: Active 2011 Medical PO, Drug Center form: TAB, Q12H, PRN as needed for nausea/vomit ing, Start date: 12/01/11 19:21:00, Duration: 30 day, Stop date: 12/31/11 19:20:00 ALPRAZOLam 0.5 mg, 1 PO No Longer Lovy 12/01[facility] tab, Route: Active 2011 Medical PO, Drug Center form: TAB, Daily, PRN as needed for anxiety, Start date: 12/01/11 19:21:00, Duration: 30 day, Stop date: 12/31/11 19:20:00 [place] 10/325 1 tab, PO No Longer Judith-P [...] atorvastatin 10 10 mg, 1 PO Active [facility] [place] oral tablet tab, PO, 2011 Medical Daily, 30 Center tab, Substitution Allowed, TAB [place] 10/325 1 tab, PO, PO No Longer [place] oral tablet Q6H, PRN, 24 Active alba 2011 Medical tab, for Center pain, Substitution Allowed, Soft Stop pantoprazole 40 40 mg, 1 PO No Longer [facility] [place] mg oral enteric tab, PO, Active 2011 Medical coated tablet Daily, 30 Center tab, Substitution Allowed, ECTAB gabapentin 600 600 mg, 1 PO Active [facility] [place] mg oral tablet tab, PO, 2011 Medical TID, 270 Center tab, Substitution Allowed Protonix 40 mg 40 mg, 1 PO Active [facility] [place] oral enteric tab, PO, 2011 [place] coated tablet Daily, 30 tab, 1, 1, Substitution Allowed, ECTAB Coreg 3.125 mg 3.125 mg, 1 PO Active [facility] Blake gar oral tablet tab, PO, 2011 [place] BID, 60 tab, 1, 1, Substitution Allowed, TAB [place] 5/325 oral 1 tab, PO, PO Active [facility] S ugar tablet Q4-6H, PRN, 2011 [place] 30 tab, as needed for pain, Substitution Allowed, Maintenance Flagyl 500 mg 500 mg, 1 PO Active [facility] [place] oral tablet tab, PO, 2011 [place] Q8H, 39 tab, Substitution Allowed, TAB Cipro 500 mg 500 mg, 1 PO Active [facility] [place] oral tablet tab, PO, 2011 [place] Q12H, 26 tab, Substitution Allowed, TAB Cipro 400 mg, 200 IVPB No Longer [facility] [place] mL, Route: Active 2011 IVPB, Drug [...] ar 0.02% inhalation mL, Route: Active 2011 [facility] solution NEB, Drug form: SOLN, Q4H, Start date: 08/26/11 20:00:00, Duration: 30 day, Stop date: 09/25/11 16:00:00 albuterol 0.083% 2.49 mg, 3 NEB No Longer Melo [place] inhalation mL, Route: Active 2011 [facility] solution NEB, Drug form: SOLN, Q4H, Start date: 08/26/11 20:00:00, Duration: 30 day, Stop date: 09/25/11 16:00:00 Restoril 15 mg, 1 PO No Longer [facility] [place] cap, Route: Active 2011 PO, Drug form: CAP, Bedtime, PRN Sleep, Start date: 08/26/11 19:55:00, Duration: 30 day, Stop date: 09/25/11 19:54:00 [place] 5/325 oral 1 tab, PO No Longer [facility] Blake gar tablet Route: PO, Active 2011 [...] 50% 12.5 gm, 25 IVP No Longer [facility] Blake gar Syringe mL, Route: Active 2011 IVP, Drug Form: INJ, PRN, PRN Blood Glucose Results, Start date: 08/26/11 19:38:00, Duration: 30 day, Stop date: 09/25/11 19:37:00 glucagon 1 mg, Route: IM No Longer [facility] [place] IM, Drug Active 2011 [facility] form: PDR/INJ, PRN, PRN Blood Glucose Results, Start date: 08/26/11 19:38:00, Duration: 30 day, Stop date: 09/25/11 19:37:00 ALPRAZOLam 0.5 mg, 1 PO No Longer [facility] [place] tab, Route: Active 2011 PO, Drug form: TAB, Daily, PRN as needed for anxiety, Start date: 08/26/11 19:36:00, Duration: 30 day, Stop date: 09/25/11 19:35:00 levofloxacin 750 mg, 150 IV No Longer [facility] Blake gar mL, Route: Active 2011 IV, Drug form: SOLN, Q24H, Start date: 08/26/11 18:00:00, Duration: 30 day, Stop date: 09/24/11 18:00:00 cefepime 1 gm, Route: IV No Longer [facility] [place] IV, Daily, Active 2011 Start date: [...] 75 mg 75 mg, 1 PO Active [facility] [place] oral capsule cap, PO, 2011 Daily, 90 cap, Substitution Allowed, CAP sotalol 80 mg 80 mg, 1 PO Active [facility] [place] oral tablet tab, PO, 2011 BID, [...] Longer Melo [place] mL, Route: Active 2011 [facility] IV, Drug form: INJ, Q4H, PRN as needed for pain, Start date: 08/26/11 17:07:00, Duration: 30 day, Stop date: 09/25/11 17:06:00 Tylenol 650 mg, 2 PO No Longer Melo [place] tab, Route: Active 2011 [facility] PO, Drug form: TAB, Q4H, PRN Pain, Start date: 08/26/11 17:03:00, Duration: 30 day, Stop date: 09/25/11 17:02:00 Sodium Chloride 1,000 mL, IV No Longer Melo [place] 0.9% IV 1,000 mL Rate: 70 Active 2011 [facility] ml/hr, Infuse over: 14.3 hr, Route: IV, Dosing Weight 129.091 kg, Total Volume: 1,000, Start date: 08/26/11 16:59:00, Duration: 30 day, Stop date: 09/25/11 16:58:00 Demadex 10 mg, 1 PO No Longer Gil tab, Route: Active 2011 [facility] PO, Drug form: TAB, Daily, Start date: 07/07/11 9:00:00, Duration: 30 day, Stop date: 08/05/11 9:00:00 Glucophage 500 mg, 1 PO No Longer Gil tab, Route: Active 2011 [facility] PO, Drug form: TAB, Daily, Start date: 07/07/11 9:00:00, Duration: 30 day, Stop date: 08/05/11 9:00:00 Xanax 0.5 mg, 1 PO No Longer Hoberman tab, Route: Active 2011 [facility] PO, Drug form: TAB, Bedtime, Start date: 07/06/11 21:00:00, Duration: 30 day, Stop date: 08/04/11 21:00:00 Lipitor 10 mg, 1 PO No Longer Gil tab, Route: Active 2011 [facility] PO, Drug form: TAB, Bedtime, Start date: 07/06/11 21:00:00, Duration: 30 day, Stop date: 08/04/11 21:00:00 niacin 500 mg 500 mg, 1 PO No Longer Gil oral tablet, tab, Route: Active [address] [facility] [address] extended release PO, Drug form: ERTAB, Bedtime, Start date: 07/06/11 21:00:00, Duration: 30 day, Stop date: 08/04/11 21:00:00 Coumadin 4.5 mg, 1.5 PO No Longer Hoberman tab, Route: Active 2011 [facility] PO, Drug form: TAB, Q5PM, Start date: 07/06/11 17:00:00, Duration: 30 day, Stop date: 08/04/11 17:00:00 Loman 3-6-9 1200 Loman 3-6-9 PO No Longer Gil H mg (own med) 1200 mg (own Active 2011 [facility] est med), 1,200 mg, Drug form: MISC, Route: PO, TID, 07/06/11 17:00:00, Duration: 30 day, Stop date: 08/05/11 13:00:00 Protonix 40 mg, 1 PO No Longer Hoberman tab, Route: Active 2011 [facility] PO, Drug form: ECTAB, Before Dinner, Start date: 07/06/11 16:30:00, Duration: 30 day, Stop date: 08/04/11 16:30:00 K-Dur 10 10 mEq, 1 PO No Longer Gil tab, Route: Active 2011 [facility] PO, Drug form: ERTAB, ONCE, Start date: 07/06/11 14:44:00, Stop date: 07/06/11 14:44:00 Neurontin 600 mg, 2 PO No Longer Gil cap, Route: Active 2011 [facility] PO, Drug form: CAP, TID, Start date: 07/06/11 13:32:00, Duration: 30 day, Stop date: 08/05/11 13:00:00 Lasix 40 mg, 1 PO No Longer Gil tab, Route: Active 2011 [facility] PO, Drug form: TAB, Daily, Start date: 07/06/11 13:31:00, Duration: 30 day, Stop date: 08/05/11 9:00:00 Phenergan 25 mg, 1 PO No Longer Gil tab, Route: Active 2011 [facility] PO, Drug form: TAB, Q12H, PRN Nausea, Start date: 07/06/11 13:30:00, Duration: 30 day, Stop date: 08/05/11 13:29:00 Betapace 80 mg, 1 PO No Longer Hoberman tab, Route: Active 2011 [facility] PO, Drug form: TAB, Q12H, Start date: 07/06/11 9:00:00, Duration: 30 day, Stop date: 08/04/11 21:00:00 DiaBeta 2.5 mg, 1 PO No Longer Hoberman tab, Route: Active 2011 [facility] PO, Drug form: TAB, TID, Start date: 07/06/11 9:00:00, Duration: 30 day, Stop date: 08/04/11 17:00:00 K-Dur 10 10 mEq, 1 PO No Longer Hoberman tab, Route: Active 2011 [facility] PO, Drug form: ERTAB, Daily, Start date: 07/06/11 9:00:00, Duration: 30 day, Stop date: 08/04/11 9:00:00 Zaroxolyn 5 mg, 2 tab, PO No Longer Hoberman Route: PO, Active 2011 [facility] Drug form: TAB, Daily, Start date: 07/06/11 9:00:00, Duration: 30 day, Stop date: 08/04/11 9:00:00 Prinivil 10 mg, 1 PO No Longer Gil tab, Route: Active 2011 [facility] PO, Drug form: TAB, Daily, Start date: 07/06/11 9:00:00, Duration: 30 day, Stop date: 08/04/11 9:00:00 nitroglycerin 2% 1 inch, TOP No Longer Gil topical ointment Route: TOP, Active 2011 [facility] Drug form: OINT, TID, Start date: 07/06/11 6:00:00, Duration: 30 day, Stop date: 08/04/11 18:00:00 Astramorph PF 4 mg, 4 mL, IVP No Longer Gil Route: IVP, Active 2011 [facility] Drug form: INJ, Q2H, PRN Pain Score 7-10, Start date: 07/06/11 4:45:00, Duration: 30 day, Stop date: 08/05/11 4:44:00 acetaminophen-hy 1 tab, PO No Longer Gil drocodone 325 Route: PO, Active [address] [facility] [address] mg-5 mg oral Drug Form: tablet TAB, Q4H, PRN Pain Score 1-5, Start date: 07/06/11 4:44:00, Duration: 30 day, Stop date: 08/05/11 4:43:00 glucagon 1 mg, Route: IV No Longer Gil IV, Drug Active 2011 [facility] form: PDR/INJ, PRN, PRN Blood Glucose Results, Start date: 07/06/11 4:41:00, Duration: 30 day, Stop date: 08/05/11 5:40:00 Dextrose 50% in 50 mL, IVP No Longer Gil Water IV Route: IVP, 2011 [facility] PRN, Blood Glucose Results, Start date: 07/06/11 4:41:00, Duration: 30 day, Stop date: 08/05/11 5:40:00 NovoLog FlexPen 10 unit, 0.1 SUB-Q No Longer Gil H mL, Route: Active 2011 [facility] SUB-Q, Drug form: SOLN, Sliding Scale, PRN Blood Glucose Results, Start date: 07/06/11 4:41:00, Duration: 30 day, Stop date: 08/05/11 5:40:00 lactulose 20 gm, 30 PO No Longer Gil mL, Route: Active 2011 [facility] PO, Drug form: SYRP, Daily, PRN Constipation , Start date: 07/06/11 4:41:00, Duration: 30 day, Stop date: 08/05/11 4:40:00 Restoril 30 mg, 1 PO No Longer Gil cap, Route: Active 2011 [facility] PO, Drug form: CAP, Bedtime, PRN Sleep, Start date: 07/06/11 4:41:00, Duration: 30 day, Stop date: 08/05/11 4:40:00 Tylenol 650 mg, 2 PO No Longer Gil tab, Route: Active 2011 [facility] PO, Drug form: TAB, Q4H, PRN Pain/Fever, Start date: 07/06/11 4:40:00, Duration: 30 day, Stop date: 08/05/11 4:39:00 Sodium Chloride 250 mL, IVPB No Longer Gil 0.9% IV Route: IVPB, Active 2011 [facility] PRN, Line Flush, Start date: 07/06/11 2:53:00, Duration: 30 day, Stop date: 08/05/11 3:52:00 BD Normal Saline 10 mL, IVP No Longer Gil Flush Route: IVP, Active 2011 [facility] Drug Form: INJ, PRN, PRN Line Flush, Start date: 07/06/11 2:53:00, Duration: 30 day, Stop date: 08/05/11 3:52:00 morphine Sulfate 4 mg, Route: IVP No Longer Hoberman IVP, ONCE, Active 2011 [facility] Priority: STAT, Start date: 07/05/11 22:23:00, Stop date: 07/05/11 22:23:00 Niaspan ER 500 500 mg, 1 PO Active mg oral tablet, tab, PO, [address] [facility] [address] extended release BID, 60 tab, Substitution Allowed warfarin 3 mg 3 mg, 1 tab, PO Active oral tablet PO, Daily, 2011 [facility] 30 tab, Substitution Allowed, TAB ALPRAZOLam 0.5 mg, PO, PO Active PRN, PRN, 2011 [facility] anxiety, Substitution Allowed promethazine 25 25 mg, 1 PO Active mg oral tablet tab, PO, 2011 [place] Q12H, PRN, 15 tab, Nausea, Substitution Allowed metolazone 5 mg 5 mg, 1 tab, PO Active oral tablet PO, Daily, 2011 [facility] 30 tab, Substitution Allowed, TAB glyBURIDE 2.5 mg 2.5 mg, 1 PO Active oral tablet tab, PO, 2011 [facility] TID, 30 tab, Substitution Allowed, TAB nitroglycerin 2% 1 inch, TOP No Longer Hoberman ointment Route: TOP, Active 2011 [facility] Drug Form: OINT, ONCE, STAT, Start date: 07/05/11 21:43:00, Stop date: 07/05/11 21:43:00 nitroglycerin 0.4 mg, 1 SL No Longer Hoberman tab, Route: Active 2011 [facility], Drug form: TAB, Q5Min, PRN Chest Pain, (Hold if SBP < = 90 mmHg or if < = 100mmHg with symptomatic dizziness), Start date: 07/05/11 21:43:00, Duration: 3 doses or times, Stop date: Limited # of times aspirin 81 mg 81 mg, 1 PO No Longer Hoberman tablet, chewable tab, Route: Active 2011 [facility] PO, Drug form: CHEWTAB, ONCE, Priority: STAT, Start date: 07/05/11 21:43:00, Stop date: 07/05/11 21:43:00 Saline Flush 5 ml, Route: IVP No Longer Hoberman 0.9% IVP, Drug Active 2011 [facility] Form: INJ, PRN, PRN Line Flush, Start date: 07/05/11 21:43:00, Duration: 24 hr, Stop date: 07/06/11 21:42:00 Coumadin 10 mg, 1 PO No Longer Catrachito tab, Route: Active 2010 [facility] PO, Drug form: TAB, ONCE, Start date: 05/05/11 17:00:00, Stop date: 05/05/11 17:00:00 Coumadin 10 mg, 1 PO No Longer Catrach[place] tab, Route: Active 2010 [facility] PO, Drug form: TAB, ONCE, Start date: 05/05/11 14:58:00, Stop date: 05/05/11 14:58:00 Coumadin 10 mg, 1 PO No Longer Odom tab, Route: Active 2010 [facility] PO, Drug form: TAB, ONCE, Start date: 05/04/11 17:00:00, Stop date: 05/04/11 17:00:00 Coreg 3.125 mg, 1 PO No Longer Melo tab, Route: Active 2010 [facility] PO, Drug form: TAB, BID, Start date: 05/04/11 17:00:00, Duration: 30 day, Stop date: 06/03/11 9:00:00 Coumadin 10 mg, 1 PO No Longer Odom tab, Route: Active 2010 [facility] PO, Drug form: TAB, ONCE, Start date: 05/03/11 17:00:00, Stop date: 05/03/11 17:00:00 Carafate 1 gm, 1 tab, PO No Longer Catrachito Route: PO, Active 2010 [facility] Drug form: TAB, BID, Start date: 05/02/11 17:00:00, Duration: 30 day, Stop date: 06/01/11 9:00:00 Coreg 3.125 mg, 1 PO No Longer Odom tab, Route: Active 2010 [facility] PO, Drug form: TAB, BID, Start date: 05/02/11 17:00:00, Duration: 30 day, Stop date: 06/01/11 9:00:00 Coumadin 10 mg, 1 PO No Longer Odom tab, Route: Active 2010 [facility] PO, Drug form: TAB, ONCE, Start date: 05/02/11 17:00:00, Stop date: 05/02/11 17:00:00 Coumadin 10 mg, 1 PO No Longer Odom tab, Route: Active 2010 [facility] PO, Drug form: TAB, ONCE, Start date: 05/01/11 17:00:00, Stop date: 05/01/11 17:00:00 Coumadin 2.5 mg, 1 PO No Longer Melo tab, Route: Active 2010 [facility] PO, Drug form: TAB, ONCE, Start date: 04/30/11 17:00:00, Stop date: 04/30/11 17:00:00 Lovenox 80 mg, 0.8 SUB-Q No Longer Hughes mL, Route: Active 2010 [facility] SUB-Q, Drug form: INJ, [id number], Start date: 04/30/11 8:00:00, Duration: 30 day, Stop date: 05/29/11 20:00:00 Zofran 2 mg, 1 mL, IVP No Longer Melo Route: IVP, Active 2010 [facility] Drug form: INJ, Q8H, PRN Nausea, Start date: 04/29/11 14:35:00, Duration: 30 day, Stop date: 05/29/11 14:34:00 NovoLog FlexPen 5 unit, 0.05 SUB-Q No Longer Justin 04/29[facility] H mL, Route: Active 2010 [facility] SUB-Q, Drug form: SOLN, Sliding Scale, PRN Blood Glucose Results, Start date: 04/29/11 13:22:00, Duration: 30 day, Stop date: 05/29/11 13:21:00 glucagon 1 mg, Route: IV No Longer Justin IV, Drug Active 2010 [facility] form: PDR/INJ, PRN, PRN Blood Glucose Results, Start date: 04/29/11 13:22:00, Duration: 30 day, Stop date: 05/29/11 13:21:00 Dextrose 50% in 50 mL, IVP No Longer Odom Water IV Route: IVP, Active 2010 [facility] PRN, Blood Glucose Results, Start date: 04/29/11 13:22:00, Duration: 30 day, Stop date: 05/29/11 13:21:00 Sodium Chloride 250 mL, IVPB No Longer Justin 0.9% IV Route: IVPB, Active 2010 [facility] PRN, Line Flush, Start date: 04/29/11 13:14:00, Duration: 30 day, Stop date: 05/29/11 13:13:00 BD Normal Saline 10 mL, IVP No Longer Justin Flush Route: IVP, Active 2010 [facility] Drug Form: INJ, PRN, PRN Line Flush, Start date: 04/29/11 13:13:00, Duration: 30 day, Stop date: 05/29/11 13:12:00 Coumadin 2.5 mg, 1 PO No Longer Odom tab, Route: Active 2010 [facility] PO, Drug form: TAB, Bedtime, Start date: 04/28/11 21:00:00, Duration: 30 day, Stop date: 05/27/11 21:00:00 Lovenox 80 mg, 0.8 SUB-Q No Longer Odom 04/29/ MH mL, Route: Active 2010 [facility] SUB-Q, Drug form: INJ, [id number], Start date: 04/28/11 20:00:00, Duration: 30 day, Stop date: 05/28/11 8:00:00 Protonix 40 mg, 1 PO No Longer Melo MH tab, Route: Active 2010 [facility] PO, Drug form: ECTAB, Before Dinner, Start date: 04/28/11 16:30:00, Duration: 30 day, Stop date: 05/27/11 16:30:00 Betapace 80 mg, 1 PO No Longer Odom tab, Route: Active 2010 [facility] PO, Drug form: TAB, BID, Start date: 04/28/11 10:52:00, Duration: 30 day, Stop date: 05/28/11 9:00:00 Coreg 6.25 mg, 1 PO No Longer Melo MH tab, Route: Active 2010 [facility] PO, Drug form: TAB, Q12H, Start date: 04/28/11 9:00:00, Duration: 30 day, Stop date: 05/27/11 21:00:00 Zaroxolyn 5 mg, 2 tab, PO No Longer Melo MH Route: PO, Active 2010 [facility] Drug form: TAB, Daily, Start date: 04/28/11 9:00:00, Duration: 30 day, Stop date: 05/27/11 9:00:00 Prinivil 10 mg, 1 PO No Longer Melo MH tab, Route: Active 2010 [facility] PO, Drug form: TAB, Q12H, Start date: 04/28/11 9:00:00, Duration: 30 day, Stop date: 05/27/11 21:00:00 Lasix 40 mg, 1 PO No Longer Melo MH tab, Route: Active 2010 [facility] PO, Drug form: TAB, Daily, Start date: 04/28/11 9:00:00, Duration: 30 day, Stop date: 05/27/11 9:00:00 Xanax 0.5 mg, 1 PO No Longer Melo tab, Route: Active 2010 [facility] PO, Drug form: TAB, Daily, Start date: 04/28/11 9:00:00, Duration: 30 day, Stop date: 05/27/11 9:00:00 K-Dur 10 10 mEq, 1 PO No Longer Melo tab, Route: Active 2010 [facility] PO, Drug form: ERTAB, Daily, Start date: 04/28/11 9:00:00, Duration: 30 day, Stop date: 05/27/11 9:00:00 Neurontin 600 mg, 2 PO No Longer Melo cap, Route: Active 2010 [facility] PO, Drug form: CAP, TID, Start date: 04/28/11 9:00:00, Duration: 30 day, Stop date: 05/27/11 17:00:00 morphine Sulfate 2 mg, 0.4 IV No Longer Odom mL, Route: Active 2010 [facility] IV, Drug form: INJ, ONCE, Start date: 04/28/11 7:31:00, Stop date: 04/28/11 7:31:00 morphine Sulfate 2 mg, 0.4 IV No Longer Melo mL, Route: Active 2010 [facility] IV, Drug form: INJ, ONCE, Start date: 04/28/11 4:44:00, Stop date: 04/28/11 4:44:00 Phenergan 25 mg, 1 PO No Longer Melo tab, Route: Active 2010 [facility] PO, Drug form: TAB, Q6H, PRN Nausea, Start date: 04/28/11 2:13:00, Duration: 30 day, Stop date: 05/28/11 2:12:00 acetaminophen-hy 1 tab, PO No Longer Melo drocodone 325 Route: PO, Active [address] [facility] [address] mg-5 mg oral Drug Form: tablet TAB, Q6H, PRN Pain, Start date: 04/28/11 2:12:00, Duration: 30 day, Stop date: 05/28/11 2:11:00 Lovenox 40 mg, 0.4 SUB-Q No Longer Melo 04/28/ mL, Route: Active 2010 [facility] SUB-Q, Drug form: INJ, [id number], Start date: 04/28/11 1:00:00, Duration: 30 day, Stop date: 05/27/11 13:00:00 diltiazem 100 mg 100 mL, IV No Longer Melo + Sodium Rate: Active 2010 [facility] Chloride 0.9% IV titrate, 100 mL Route: IV, Total Volume: 100, Start date: 04/28/11 0:36:00, Duration: 30 day, Stop date: 05/28/11 0:35:00 glucagon 1 mg, Route: IV No Longer [facility] IV, Drug Active 2010 [facility] form: PDR/INJ, PRN, PRN Blood Glucose Results, Start date: 04/28/11 0:35:00, Duration: 30 day, Stop date: 05/28/11 0:34:00 Dextrose 50% in Route: IVP, IVP No Longer [facility] Water IV PRN, Blood Active 2010 [facility] Glucose Results, Start date: 04/28/11 0:35:00, Duration: 30 day, Stop date: 05/28/11 0:34:00 NovoLog FlexPen 10 unit, 0.1 SUB-Q No Longer Odom 04/28/ M H mL, Route: Active 2010 [facility] SUB-Q, Drug form: SOLN, Sliding Scale, PRN Blood Glucose Results, Start date: 04/28/11 0:35:00, Duration: 30 day, Stop date: 05/28/11 0:34:00 Avelox 400 mg 400 mg, 1 PO No Longer Minerva Sug ar oral tablet tab, Route: Active 2010 PO, Drug form: TAB, [id number], Priority: NOW, Start date: 02/17/11 10:36:00, Duration: 30 day, Stop date: 03/18/11 10:36:00 Avelox 400 mg 400 mg, 1 PO Active Minerva Sugar oral tablet tab, PO, 2010 Daily, 7 tab, Substitution Allowed, TAB Protonix 40 mg, 1 PO No Longer Minerva 10/11/ MH Sugar tab, Route: Active 2010 [place] PO, Drug form: ECTAB, Before Breakfast, Start date: 02/17/11 7:30:00, Duration: 30 day, Stop date: 03/18/11 7:30:00 azithromycin 500 500 mg, 2 PO No Longer Minerva 02/17/ MH Sugar mg oral tablet tab, Route: Active 2010 [facility] PO, Drug form: TAB, Daily, Start date: [...] Elvia 02/17/ MH Sugar mL, Route: 2010 [facility] IM, Drug form: INJ, Q6H, PRN Pain, Start date: 02/16/11 21:03:00, Duration: 30 day, Stop date: 03/18/11 21:02:00 hydrALAZINE 10 mg, 0.5 IVP No Longer Minerva 02/16/ MH Suga r mL, Route: 2010 IVP, Drug form: INJ, Q4H, PRN Elevated BP, Start date: 02/16/11 11:43:00, Duration: 30 day, Stop date: 03/18/11 11:42:00 Lopressor 5 mg, 5 mL, IVP No Longer Minerva 10// MH Sugar Route: IVP, Active 2010 Drug form: INJ, Q6H, PRN Elevated BP, Start date: 02/16/11 11:43:00, Duration: 30 day, Stop date: 03/18/11 11:42:00 Visipaque 48,000 mg, IV No Longer Minerva 10/ MH Sugar 150 mL, Active 2010 Route: IV, Drug form: INJ, ONCE, Start date: 02/16/11 9:05:00, Stop date: 02/16/11 9:05:00 potassium 10 mEq, 1 PO No Longer Minerva 10/ MH Sugar chloride tab, Route: Active 2010 PO, Drug form: ERTAB, Daily, Start date: 02/16/11 9:00:00, Duration: 30 day, Stop date: 03/17/11 9:00:00 glyBURIDE 5 mg, 1 tab, PO No Longer Minerva Suga r Route: PO, Active 2010 Drug form: TAB, Daily, Start date: 02/16/11 9:00:00, Duration: 30 day, Stop date: 03/17/11 9:00:00 Lasix 40 mg oral 40 mg, 2 PO No Longer Minerva S ugar tablet tab, Route: Active 2010 PO, Drug form: TAB, Daily, Start date: 02/16/11 9:00:00, Duration: 30 day, Stop date: 03/17/11 9:00:00 morphine Sulfate 2 mg, 0.4 IVP No Longer Elvia Sugar mL, Route: Active 2010 IVP, Drug form: INJ, Q3H, PRN Pain, Start date: 02/15/11 23:21:00, Duration: 30 day, Stop date: 03/17/11 23:20:00 predniSONE 50 mg, PO No Longer Minerva Sugar Route: PO, Active 2010 Drug form: TAB, BID, Start date: 02/15/11 17:00:00, Duration: 30 day, Stop date: 03/17/11 9:00:00 gabapentin 600 600 mg, 2 PO No Longer Minerva Blake gar mg oral tablet cap, Route: Active 2010 PO, Drug form: CAP, TID, Start date: 02/15/11 13:00:00, Duration: 30 day, Stop date: 03/17/11 9:00:00 aspirin 81 mg 1 tab, PO, PO Active Suga r tablet, enteric Daily, 0 2010 coated tab, Substitution Allowed, ECTAB glyBURIDE 5 mg 1 tab, PO, PO Active Minerva Sug ar oral tablet Daily, 30 2010 tab, Substitution Allowed, TAB doxycycline 1 cap, PO, PO No Longer Suga r hyclate 100 mg BID, cap, Active 2010 oral capsule Substitution Allowed predniSONE 50 mg 1 tab, PO, PO Active Minerva S ugar oral tablet BID, tab, 2010 Substitution Allowed, TAB gabapentin 600 1 tab, PO, PO Active Minerva Sug ar mg oral tablet TID, 270 2010 tab, Substitution Allowed Klor-Con M10 1 tab, PO, PO Active Minerva Sugar oral tablet, Daily, tab, 2010 extended release Substitution Allowed, ERTAB lisinopril 10 mg 1 tab, PO, PO Active S ugar oral tablet BID, 30 tab, 2010 Substitution Allowed, TAB Lasix 40 mg oral 1 tab, PO, PO Active Minerva S ugar tablet Daily, 30 2010 tab, [...] cefepime 1 gm, Route: IVPB No Longer Minerva Sugar IVPB, Active 2010 [id number], Start date: 02/15/11 11:00:00, Duration: 30 day, [...] Longer Elvia Sugar mL, Route: Active 2010 [facility] SUB-Q, Drug form: INJ, Daily, Start date: 02/15/11 9:00:00, Duration: 30 day, Stop date: 03/16/11 9:00:00 predniSONE 40 mg, 2 PO No Longer Melo Sugar tab, Route: Active 2010 [facility] PO, Drug form: TAB, Daily, Start date: 02/15/11 9:00:00, Stop date: 03/16/11 9:00:00 lisinopril 10 mg, 2 PO No Longer Elvia Sugar tab, Route: Active 2010 [facility] PO, Drug form: TAB, BID, Start date: 02/15/11 9:00:00, Duration: 30 day, Stop date: 03/16/11 17:00:00 DuoNeb 3 ml, Route: INHALATION No Longer Elvia Sug ar inhalation INHALATION, Active 2010 [facility] solution Drug Form: SOLN, Q6H, Start date: 02/15/11 0:00:00, Duration: 30 day, Stop date: 03/16/11 18:00:00 Neurontin 600 mg, 2 PO No Longer Minerva Sugar cap, Route: Active 2010 PO, Drug form: CAP, Q8H, Start date: 02/14/11 23:40:00, Duration: 30 day, Stop date: 03/16/11 16:00:00 ceftriaxone 1 gm, Route: IVPB No Longer Melo Blake gar IVPB, Active 2010 [id number], Start date: 02/14/11 23:00:00, Duration: 30 day, Stop date: 03/15/11 23:00:00 azithromycin 500 mg, IVPB No Longer Elvia Sugar Route: IVPB, Active 2010 [id number], Start date: 02/14/11 23:00:00, Duration: 30 day, [...] Longer Elvia Sugar IM, Drug Active 2010 [facility] form: PDR/INJ, PRN, PRN Blood Glucose Results, [...] [place] Plavix Assertion Drug Active allergy [facility] t Bactrim Assertion hives Severe Drug Active allergy [place] NKFA Assertion Food Active allergy [facility] t Immunizations Immunization Date Site Status Last Comments Source Given Updated pneumococcal Right completed [place] [facility] Sugar 13-valent 8 [place], vaccine medius [facility] influenza virus Left completed [facility] O PID Sugar vaccine, 8 [place], inactivated medius [facility] t Results Order Name Results Value Reference Date Interpretation Comments Didi rce Range CHEM PANEL Calcium Lvl 8.3 8.5 - 10.5 12/01 [facility] CHEM PANEL AGAP 13.2 10.0 - 12/01 .0 [facility] CHEM PANEL Potassium 4.2 3.5 - 5.1 12/01 Lvl [facility] CHEM PANEL Chloride Lvl 104 95 - 109 12/01 [facility] CHEM PANEL CO2 29 24 - 32 12/01 [facility] CHEM PANEL Sodium Lvl 142 135 - 145 12/01 [facility] CHEM PANEL Creatinine 2.10 0.50 - 12/01 Lvl 1.40 [facility] CHEM PANEL BUN 26 7 - 22 12/01 [facility] CHEM PANEL eGFR 33 12/01 Result Comment: [facility] eGFR is calculated using the [...] Glucose Lvl 104 70 - 99 12/01 [facility] HEMATOLOGY Basophils 0.8 0.0 - 1.0 12/01 [facility] HEMATOLOGY Eosinophils 4.6 0.0 - 4.0 12/01 [facility] HEMATOLOGY Segs 58.6 45.0 - 12/01 MH 75.0 [facility] HEMATOLOGY Lymphocytes 31.1 20.0 - 12/01 MH 40.0 [facility] HEMATOLOGY Monocytes 4.9 2.0 - 12.0 12/01 [facility] HEMATOLOGY Neutrophils 2.5 1.5 - 8.1 12/01 MH # /2018 [facility] HEMATOLOGY Lymphocytes 1.3 1.0 - 5.5 12/01 # /2018 [facility] HEMATOLOGY Eosinophils 0.2 0.0 - 0.5 12/01 MH # /2018 [facility] HEMATOLOGY Monocytes # 0.2 0.0 - 0.8 12/01 [facility] HEMATOLOGY Hct 33.4 42.0 - 12/01 MH 54.0 [facility] HEMATOLOGY MCV 94.2 80.0 - 12/01 MH 94.0 [facility] HEMATOLOGY RBC 3.54 4.70 - 12/01 MH 6.10 [facility] HEMATOLOGY MCH 30.5 27.0 - 12/01 MH 31.0 [facility] HEMATOLOGY WBC 4.2 3.7 - 10.4 12/01 [facility] Hgb 10.8 14.0 - 12/01 MH 18.0 [facility] RDW 16.8 11.5 - 12/01 MH 14. [place] HEMATOLOGY Platelet 77 133 - 450 12/01 [facility] HEMATOLOGY MPV 8.3 7.4 - 10.4 12/01 [facility] HEMATOLOGY MCHC 32.3 32.0 - 12/01 MH 36.0 /2018 [facility] CARDIAC Troponin-I 0.18 0.00 - 11/30 ENZYMES 0.40 [facility] CARDIAC Troponin-I 0.21 0.00 - 11/30 ENZYMES 0.40 [facility] CARDIAC BNP 384 <=100 11/30 ENZYMES pg/mL /2018 [facility] CHEM PANEL Phosphorus 2.5 2.5 - 4.5 11/30 [facility] CHEM PANEL Magnesium 2.0 1.8 - 2.4 11/30 Lvl [facility] CHEM PANEL eGFR 35 11/30 Result Comment: [facility] eGFR is calculated using the [...] Alk Phos 68 39 - 136 11/30 [facility] CHEM PANEL Bili Total 0.6 0.2 - 1.3 11/30 [facility] CHEM PANEL AST 13 0 - 37 11/30 [facility] CHEM PANEL Potassium 3.9 3.5 - 5.1 11/30 Lvl [facility] CHEM PANEL CO2 27 24 - 32 11/30 [facility] CHEM PANEL Calcium Lvl 8.2 8.5 - 10.5 11/30 [facility] CHEM PANEL Chloride Lvl 105 95 - 109 11/30 [facility] CHEM PANEL Total 7.8 6.4 - 8.4 07/24 MH Protein [facility] CHEM PANEL Sodium Lvl 138 135 - 145 11/30 [facility] CHEM PANEL Creatinine 2.00 0.50 - 11/30 MH Lvl 1.40 /2019 [facility] CHEM PANEL Albumin Lvl 3.1 3.5 - 5.0 11/30 [facility] CHEM PANEL Glucose Lvl 106 70 - 99 11/30 [facility] CHEM PANEL BUN 30 7 - 22 11/30 [facility] CHEM PANEL ALT 14 0 - 65 11/30 [facility] CHEM PANEL A/G Ratio 0.7 0.7 - 1.6 11/30 [facility] CHEM PANEL Globulin 4.7 2.7 - 4.2 11/30 [facility] CHEM PANEL AGAP 9.9 10.0 - 11/30 MH 20.0 [facility] CHEM PANEL B/C Ratio 15 6 - 25 11/30 [facility] HEMATOLOGY MCHC 32.1 32.0 - 11/30 MH 36.0 [facility] HEMATOLOGY RDW 17.8 11.5 - 11/30 MH 14.5 [facility] HEMATOLOGY MCH 30.7 27.0 - 11/30 MH 31.0 [facility] HEMATOLOGY RBC 3.46 4.70 - 11/30 MH 6.10 [facility] HEMATOLOGY WBC 4.9 3.7 - 10.4 11/30 /2018 [facility] HEMATOLOGY MPV 8.2 7.4 - 10.4 11/30 /2018 [facility] HEMATOLOGY Platelet 91 133 - 450 11/30 /2018 [facility] HEMATOLOGY MCV 95.7 80.0 - 11/30 MH 94.0 /2018 [facility] HEMATOLOGY Hgb 10.6 14.0 - 11/30 MH 18.0 [facility] HEMATOLOGY Hct 33.1 42.0 - 11/30 MH 54.0 /2018 [facility] HEMATOLOGY Neutrophils 3.0 1.5 - 8.1 11/30 MH # /2018 [facility] HEMATOLOGY Lymphocytes 1.5 1.0 - 5.5 11/30 MH # /2018 [facility] HEMATOLOGY Monocytes # 0.2 0.0 - 0.8 11/30 [facility] HEMATOLOGY Eosinophils 0.2 0.0 - 0.5 11/30 MH # /2018 [facility] HEMATOLOGY Basophils # 0.0 0.0 - 0.2 11/30 [facility] HEMATOLOGY Segs 61.3 45.0 - 11/30 MH 75.0 /2018 [facility] HEMATOLOGY Lymphocytes 29.5 20.0 - 11/30 MH 40.0 /2019 [facility] HEMATOLOGY Eosinophils 4.4 0.0 - 4.0 11/30 [facility] HEMATOLOGY Basophils 0.5 0.0 - 1.0 11/30 [facility] HEMATOLOGY Monocytes 4.3 2.0 - 12.0 11/30 [facility] LIPIDS CHD Risk 1.75 4.00 - 11/30 MH 7.30 [facility] LIPIDS VLDL 14 11/30 [facility] LIPIDS LDL 24 <=99 mg/dL 11/30 (Calculated) [facility] LIPIDS Trig 71 <=149 11/30 MH mg/dL [facility] LIPIDS HDL 51 >=61 mg/dL 11/30 [facility] LIPIDS Chol 89 <=199 11/30 mg/dL [facility] SPECIAL Hgb A1C 6.8 <=5.6 % 11/30 CHEMISTRY [facility] REFERENCE Misc Lab See 03/29 Result LAB Comment Comment: [facility] RESULTS Reference lab results scanned in [employer]. Results displayed in [id number] EFERENCE LAB-Outside Lab Documents (Imaged) under date/time results were scanned. Report sent for scanning on 04/06/2018 16:14. REFERENCE Test Name global 03/29 LAB fish, [facility] RESULTS enriched HEMATOLOGY MCH 30.1 27.0 - 03/29 31.0 [facility] HEMATOLOGY MCHC 32.4 32.0 - 03/29 MH 36.0 [facility] HEMATOLOGY MCV 92.8 80.0 - 03/29 94.0 [facility] HEMATOLOGY Hgb 11.5 14.0 - 03/29 MH 18.0 [facility] HEMATOLOGY Hct 35.6 42.0 - 03/29 MH 54.0 [facility] HEMATOLOGY RDW 18.2 11.5 - 03/29 MH 14.5 [facility] HEMATOLOGY MPV 9.8 7.4 - 10.4 03/29 [facility] HEMATOLOGY Platelet 113 133 - 450 03/29 [facility] HEMATOLOGY WBC 5.9 3.7 - 10.4 03/29 [facility] HEMATOLOGY RBC 3.84 4.70 - 03/29 MH 6.10 [facility] ELECTROLYT AGAP 10.6 10.0 - 03/29 ES 20.0 [facility] ELECTROLYT Glucose Lvl 103 70 - 99 11 [facility] ELECTROLYT eGFR 42 03/29 Result Comment: [facility] eGFR is calculated using the [...] Calcium Lvl 7.9 8.5 - 10.5 03/29 [facility] ELECTROLYT CO2 26 24 - 32 03/29 [facility] ELECTROLYT Potassium 3.6 3.5 - 5.1 03/29 ES Lvl /2017 [facility] ELECTROLYT Sodium Lvl 142 135 - 145 03/29 [facility] ELECTROLYT Chloride Lvl 109 95 - 109 03/29 [facility] ELECTROLYT Creatinine 1.70 0.50 - 03/29 ES Lvl 1.40 [facility] ELECTROLYT BUN 20 7 - 22 03/29 [facility] HEMATOLOGY PT 17.7 12.0 - 03/29 14.7 [facility] HEMATOLOGY INR 1.45 0.85 - 03/29 1.17 [facility] LIPIDS CHD Risk 1.69 4.00 - 03/29 7.30 [facility] LIPIDS VLDL 13 03/29 [facility] LIPIDS LDL 16 <=99 mg/dL 03/29 (Calculated) [facility] LIPIDS Chol 71 <=199 03/29 mg/dL [facility] LIPIDS HDL 42 >=61 mg/dL 03/29 [facility] LIPIDS Trig 66 <=149 03/29 mg/dL [facility] IMMUNOLOGY IgA Lvl 62.0 68.0 - 03/28 378.0 /2017 [facility] IMMUNOLOGY IgM Lvl 30.0 60.0 - 03/28 MH 263.0 /2017 [facility] IMMUNOLOGY IgG Lvl 2010 694 - 1618 03/28 MH /2017 [facility] IMMUNOLOGY Tot Prot 8 03/28 MH (UPE) /2017 [facility] IMMUNOLOGY Interp (UPE) Urine 03/28 MH protein /2017 [facility] electropho resis shows minimal proteinuri a. No monoclonal bands are identified ; however, evaluation is limited by the small amount of protein and the resulting lack of discernibl e bands on the electropho retic gel. Interpret ation performed at [facility]. IMMUNOLOGY Spec Type random, 03/28 MH (UPE) 100x /2017 [facility] CHEM PANEL G-0-Dpsmquqa 3.5 1.0 - 2.3 11 MH b /2017 [facility] IMMUNOLOGY Lambda Free 130.44 5.70 - 03/27 Light Chains 26.30 /2017 [facility] IMMUNOLOGY [place] Free 13.69 3.30 - 03/27 Light Chains 19.40 /2017 [facility] IMMUNOLOGY [place]/Lambda 0.10 0.26 - 03/27 Free Light 1.65 [facility] Chains Ratio IMMUNOLOGY Albumin 3.25 3.57 - 03/27 MH (SPE) 5.55 /2017 [facility] IMMUNOLOGY Alpha 2 Glob 0.78 0.45 - 03/27 MH 1.00 /2017 [facility] IMMUNOLOGY Alpha 1 Glob 0.32 0.18 - 03/27 MH 0.41 /2017 [facility] IMMUNOLOGY Beta Glob 0.61 0.50 - 03/27 MH 1.15 /2017 [facility] IMMUNOLOGY Tot Prot 7.0 6.4 - 8.4 03/27 MH (SPE) /2017 [facility] IMMUNOLOGY Gamma Glob 2.04 0.71 - 03/27 MH 1.57 [facility] IMMUNOLOGY SPE Interp Total 03/27 protein is /2017 [facility] within reference range; albumin is decreased. A monoclonal protein (1.79 g/dl) is present in the gamma globulin region. Serum and urine immunofixa tion studies are recommende d for further evaluation . Interpreta tion performed at [facility]. IMMUNOLOGY Alpha 1 % 4.6 2.8 - 4.9 03/27 [facility] IMMUNOLOGY Albumin % 46.4 55.8 - 03/27 MH 66.1 /2017 [facility] IMMUNOLOGY Beta % 8.7 7.8 - 13.7 03/27 [facility] IMMUNOLOGY Alpha 2 % 11.2 7.0 - 11.9 03/27 [facility] IMMUNOLOGY Gamma % 29.1 11.1 - 03/27 MH 18.7 /2017 [facility] CARDIAC BNP 171 <=100 03/27 ENZYMES pg/mL /2017 [facility] ELECTROLYT AGAP 10.7 10.0 - 03/27 MH ES 20.0 /2017 [facility] ELECTROLYT Calcium Lvl 7.5 8.5 - 10.5 03/27 ES [facility] ELECTROLYT CO2 26 24 - 32 03/27 ES [facility] ELECTROLYT BUN 22 7 - 22 03/27 ES [facility] ELECTROLYT Creatinine 1.60 0.50 - 03/27 MH ES Lvl 1.40 /2017 [facility] ELECTROLYT Chloride Lvl 108 95 - 109 03/27 ES [facility] ELECTROLYT Sodium Lvl 141 135 - 145 03/27 ES [facility] ELECTROLYT Potassium 3.7 3.5 - 5.1 03/27 ES Lvl /2017 [facility] ELECTROLYT eGFR 46 03/27 Result MH Comment: [facility] eGFR is calculated using the [...] Lvl 87 70 - 99 03/27 ES [facility] HEMATOLOGY INR 2.09 0.85 - 03/27 MH 1. [facility] HEMATOLOGY PT 23.7 12.0 - 03/27 MH 14.7 [facility] URINE AND Occult Bld Positive Negative 03/26 STOOL Stl *ABN* /2017 [facility] (03/26/18 8:47 AM) CARDIAC BNP 258 <=100 03/26 ENZYMES pg/mL /2017 [facility] ELECTROLYT AGAP 9.5 10.0 - 03/26 ES 20.0 /2017 [place] ELECTROLYT eGFR 40 03/26 Result Comment: [facility] eGFR is calculated using the [...] Lvl 140 135 - 145 03/26 ES [facility] ELECTROLYT Chloride Lvl 105 95 - 109 03/26 ES [facility] ELECTROLYT Potassium 3.5 3.5 - 5.1 03/26 ES Lvl /2017 [facility] ELECTROLYT CO2 29 24 - 32 03/26 ES /2017 [facility] ELECTROLYT Calcium Lvl 7.6 8.5 - 10.5 03/26 ES [facility] ELECTROLYT Creatinine 1.80 0.50 - 03/26 ES Lvl 1.40 /2017 [facility] ELECTROLYT Glucose Lvl 103 70 - 99 03/26 ES /2017 [facility] ELECTROLYT BUN 25 7 - 22 03/26 ES /2017 [facility] HEMATOLOGY PT 27.1 12.0 - 03/26 14.7 /2017 [facility] HEMATOLOGY INR 2.48 0.85 - 03/26 1. [facility] HEMATOLOGY Retic Auto 1.7 0.5 - 1.5 03/26 [facility] HEMATOLOGY Basophils 0.2 0.0 - 1.0 03/26 [facility] HEMATOLOGY Lymphocytes 1.4 1.0 - 5.5 03/26 # /2017 [facility] HEMATOLOGY Neutrophils 3.5 1.5 - [...] Platelet 88 133 - 450 03/26 /2017 [facility] HEMATOLOGY RDW 17.5 11. - 03/26 MH 14. [facility] HEMATOLOGY MPV 9.0 7.4 - 10.4 03/26 /2017 [facility] HEMATOLOGY WBC 5.3 3.7 - 10.4 03/26 /2017 [facility] HEMATOLOGY Hgb 11.6 14.0 - 03/26 MH 18.0 [facility] HEMATOLOGY RBC 3.81 4.70 - 03/26 MH 6. [facility] HEMATOLOGY MCV 91.8 80.0 - 03/26 MH 94.0 [facility] HEMATOLOGY Hct 35.0 42.0 - 03/26 MH 54.0 /2017 [facility] HEMATOLOGY RBC 3.78 4.70 - 12/ MH 6. [facility] HEMATOLOGY MPV 9.4 7.4 - 10.4 04/11 [facility] HEMATOLOGY Platelet 74 133 - 450 04/11 [facility] HEMATOLOGY RDW 16.3 11.5 - [...] Monocytes 5.2 2.0 - 12.0 04/11 /2016 [facility] HEMATOLOGY Eosinophils 2.4 0.0 - 4.0 04/11 /2016 [facility] HEMATOLOGY Segs 58.5 45.0 - 04/11 75.0 [facility] HEMATOLOGY Lymphocytes 33.2 20.0 - 12/ MH 40.0 [facility] HEMATOLOGY Monocytes # 0.2 0.0 - 0.8 04/11 [facility] HEMATOLOGY Eosinophils 0.1 0.0 - 0.5 04/11 # /2016 [facility] HEMATOLOGY Segs-Bands # 2.4 1.5 - 8.1 04/11 [facility] HEMATOLOGY Lymphocytes 1.4 1.0 - 5.5 04/11 [facility] HEMATOLOGY Basophils 0.7 0.0 - 1.0 04/11 [facility] URINE AND Occult Bld Negative Negative 04/10 STOOL Stl (04/10/17 9:39 AM) [facility] HEMATOLOGY Eosinophils 0.1 0.0 - 0.5 04/10 /2016 [facility] HEMATOLOGY Monocytes # 0.2 0.0 - 0.8 04/10 [facility] HEMATOLOGY Lymphocytes 1.5 1.0 - 5.5 04/10 # [facility] HEMATOLOGY Segs-Bands # 2.3 1.5 - 8.1 04/10 [facility] HEMATOLOGY Basophils 0.7 0.0 - 1.0 04/10 [facility] HEMATOLOGY Eosinophils 2.6 0.0 - 4.0 04/10 [facility] HEMATOLOGY Monocytes 5.2 2.0 - 12.0 04/10 [facility] HEMATOLOGY Lymphocytes 35.9 20.0 - 04/10 40.0 [facility] HEMATOLOGY Segs 55.6 45.0 - 12 75.0 [facility] HEMATOLOGY Platelet 58 133 - 450 04/10 [facility] HEMATOLOGY MPV 9.1 7.4 - 10.4 04/10 [facility] HEMATOLOGY Hct 32.5 42.0 - 04/10 54.0 [facility] HEMATOLOGY MCHC 34.1 32.0 - 04/10 36.0 [facility] HEMATOLOGY RDW 16.2 11.5 - 04/10 14.5 [facility] HEMATOLOGY MCV 90.3 80.0 - 04/10 94.0 [facility] HEMATOLOGY MCH 30.8 27.0 - 12/02 31.0 /2017 [facility] HEMATOLOGY Hgb 11.1 14.0 - 04/10 18.0 /2016 [facility] HEMATOLOGY WBC 4.2 3.7 - 10.4 04/10 [facility] HEMATOLOGY RBC 3.60 4.70 - 12 6.10 /2016 [facility] ANEMIA Vitamin B12 529 254 - 1320 04/09 STUDY Lvl [facility] ANEMIA Folate Lvl 7.0 >=3.0 04/09 STUDY ng/mL /2016 [facility] ANEMIA Ferritin Lvl 316 22 - 275 04/09 STUDY /2016 [facility] ANEMIA % [place] 22 12 - 57 04/09 STUDY /2016 [facility] ANEMIA UIBC 176 110 - 370 04/09 STUDY /2016 [facility] ANEMIA TIBC 226 228 - 428 04/09 STUDY [facility] ANEMIA Iron 50 45 - 160 04/09 STUDY [facility] CHEM PANEL LDH 301 98 - 192 04/09 [facility] CHEM PANEL Bili Total 0.7 0.2 - 1.3 04/09 [facility] CHEM PANEL Bili Direct 0.3 0.0 - 0.3 04/09 [facility] CHEM PANEL Bili 0.4 0.0 - 1.0 04/09 Indirect [facility] HEMATOLOGY PB Smear Mild 04/09 Path anemia /2016 [facility] with normochrom ic, normocytic indices. Moderate thrombocyt openia. No significan t microangio pathic changes identified . Clinical and laboratory correlatio n required. HEMATOLOGY Retic Auto 0.8 0.5 - 1.5 04/09 [facility] HEMATOLOGY PTT 28.0 22.9 - 04/09 35.8 /2016 [facility] HEMATOLOGY PT 19.1 12.0 - 04/09 14.7 /2016 [facility] HEMATOLOGY INR 1.59 0.85 - 04/09 1.17 /2016 [facility] HEMATOLOGY FSP >=20 ug/ml <5 ug/ml 04/09 [facility] HEMATOLOGY Fibrinogen 436 230 - 510 04/09 Lvl [facility] HEMATOLOGY D-Dimer 9.69 04/09 [facility] IMMUNOLOGY Haptoglobin 25 16 - 200 04/09 [facility] URINE AND UA <=1.0 0.1 - 1.0 04/09 STOOL Urobilinogen /2016 [facility] URINE AND UA Color Yellow 04/09 STOOL /2016 [facility] [facility] Hyal Cast 7 0 - 2 04/09 STOOL [facility] URINE AND UA Nitrite Negative Negative 04/09 STOOL (04/09/17 9:14 AM) /2016 [facility] est URINE AND UA Blood Negative Negative 04/09 STOOL (04/09/17 9:14 AM) [place] [facility] URINE AND UA Leuk Est Negative Negative 04/09 STOOL (04/09/17 9:14 AM) [facility] URINE AND UA Ketones Negative Negative 04/09 STOOL mg/dL mg/dL [facility] URINE AND UA Turbidity Clear Clear 04/09 STOOL (04/09/17 9:14 AM) [place] URINE AND UA Spec Grav 1.010 <=1.030 04/09 STOOL [place] URINE AND UA Protein Negative Negative 04/09 STOOL mg/dL mg/dL [facility] URINE AND UA Glucose Negative Negative 04/09 STOOL mg/dL mg/dL [facility] URINE AND UA pH 6.0 5.0 - 8.0 04/09 STOOL [facility] URINE AND UA WBC 1 0 - 5 04/09 STOOL [place] URINE AND UA Sq Epi Occasional Few /LPF 04/09 STOOL /LPF /2016 [facility] URINE AND UA Mucus Few /LPF None Seen 04/09 STOOL /LPF [facility] URINE AND UA RBC 1 0 - 2 04/09 STOOL [facility] URINE AND UA Bili Negative Negative 04/09 STOOL *NA* /2016 [facility] (04/09/17 9:14 AM) CARDIAC BNP 213 <=100 04/09 ENZYMES pg/mL [facility] CARDIAC CK MB 3.7 0.5 - 3.6 04/09 ENZYMES /2016 [facility] CARDIAC Troponin-I 0.18 0.00 - 04/09 ENZYMES 0.40 [facility] CHEM PANEL Ammonia <10.0 <=45.0 04/09 uMol/L [facility] ELECTROLYT AGAP 11.4 10.0 - 04/09 ES 20.0 [facility] ELECTROLYT eGFR 28 04/09 Result ES Comment: The [facility] eGFR is calculated using the [...] ELECTROLYT BUN 23 7 - 22 04/09 [facility] ELECTROLYT Creatinine 2.40 0.50 - 04/09 ES Lvl 1.40 [facility] ELECTROLYT Sodium Lvl 134 135 - 145 04/09 [facility] ELECTROLYT Potassium 3.4 3.5 - 5.1 04/09 ES Lvl /2016 [facility] ELECTROLYT Chloride Lvl 100 95 - 109 04/09 [facility] ELECTROLYT CO2 26 24 - 32 04/09 [facility] ELECTROLYT Calcium Lvl 8.1 8.5 - 10.5 04/09 [facility] ELECTROLYT Glucose Lvl 118 70 - 99 04/09 [facility] HEMATOLOGY Platelet 61 133 - 450 04/09 [facility] HEMATOLOGY RDW 16.6 11.5 - 04/09 14.5 [facility] HEMATOLOGY MCHC 33.3 32.0 - 04/09 36.0 [facility] HEMATOLOGY MCV 91.2 80.0 - 04/09 94.0 [facility] HEMATOLOGY MCH 30.4 27.0 - 04/09 MH 31.0 [facility] HEMATOLOGY WBC 4.3 3.7 - 10.4 04/09 [facility] HEMATOLOGY RBC 3.84 4.70 - 04/09 MH 6.10 [facility] HEMATOLOGY Hgb 11.7 14.0 - 04/09 18.0 [facility] HEMATOLOGY MPV 9.5 7.4 - 10.4 04/09 [facility] HEMATOLOGY Hct 35.0 42.0 - 04/09 MH 54.0 /2016 [facility] HEMATOLOGY PTT 26.7 22.9 - 04/09 MH 35.8 [facility] HEMATOLOGY INR 1.67 0.85 - 12 MH 1.17 /2016 [facility] HEMATOLOGY PT 19.8 12.0 - [...] Basophils # 0.0 0.0 - 0.2 04/09 [facility] HEMATOLOGY Segs-Bands # 3.0 1.5 - 8.1 04/09 [facility] HEMATOLOGY Eosinophils 0.0 0.0 - 0.5 04/09 MH /2016 [facility] HEMATOLOGY MPV 10.7 7.4 - 10.4 03/23 [facility] HEMATOLOGY MCV 92.8 80.0 - 03/23 94.0 /2016 [facility] HEMATOLOGY MCH 30.5 27.0 - 03/23 31.0 [facility] HEMATOLOGY Hgb 12.3 14.0 - 03/23 18.0 [facility] HEMATOLOGY Hct 37.5 42.0 - 03/23 54.0 /2016 [facility] HEMATOLOGY MCHC 32.9 32.0 - 03/23 36.0 /2016 [facility] HEMATOLOGY Platelet 41 133 - 450 03/23 [facility] HEMATOLOGY RDW 16.7 11.5 - 03/23 14.5 /2016 [facility] HEMATOLOGY WBC 6.8 3.7 - 10.4 03/23 [facility] HEMATOLOGY RBC 4.04 4.70 - 03/23 6.10 [facility] HEMATOLOGY Basophils 0.1 0.0 - 1.0 03/23 [facility] HEMATOLOGY Monocytes 3.2 2.0 - 12.0 03/23 [facility] HEMATOLOGY Eosinophils 1.3 0.0 - 4.0 03/23 [facility] HEMATOLOGY Segs 73.3 45.0 - 03/23 75.0 [facility] HEMATOLOGY Lymphocytes 22.1 20.0 - 11 MH 40.0 /2017 [facility] HEMATOLOGY Basophils # 0.0 0.0 - 0.2 03/23 [facility] HEMATOLOGY Monocytes # 0.2 0.0 - 0.8 03/23 [facility] HEMATOLOGY Eosinophils 0.1 0.0 - 0.5 03/23 # /2016 [facility] HEMATOLOGY Segs-Bands # 5.0 1.5 - 8.1 03/23 [facility] HEMATOLOGY Lymphocytes 1.5 1.0 - 5.5 03/23 [facility] ELECTROLYT AGAP 15.8 10.0 - 03/22 ES 20.0 /2016 [facility] ELECTROLYT Calcium Lvl 8.8 8.5 - 10.5 03/22 ES [facility] ELECTROLYT eGFR 26 03/22 Comment: The [facility] eGFR is calculated using the [...] Glucose Lvl 102 70 - 99 03/22 [facility] ELECTROLYT BUN 40 7 - 22 03/22 [facility] ELECTROLYT Chloride Lvl 96 95 - 109 03/22 [facility] ELECTROLYT Potassium 3.8 3.5 - 5.1 03/22 ES Lvl [facility] ELECTROLYT CO2 25 24 - 32 03/22 [facility] ELECTROLYT Sodium Lvl 133 135 - 145 03/22 [facility] ELECTROLYT Creatinine 2.60 0.50 - 03/22 ES Lvl 1.40 [facility] HEMATOLOGY Monocytes # 0.3 0.0 - 0.8 03/22 [facility] HEMATOLOGY Lymphocytes 1.2 1.0 - 5.5 03/22 MH # /2016 [facility] HEMATOLOGY Eosinophils 0.1 0.0 - 0.5 03/22 MH # /2016 [facility] HEMATOLOGY Segs-Bands # 3.7 1.5 - 8.1 03/22 [facility] HEMATOLOGY Segs 69.6 45.0 - 03/22 MH 75.0 [facility] HEMATOLOGY Lymphocytes 23.0 20.0 - 03/22 MH 40.0 /2016 [facility] HEMATOLOGY Eosinophils 1.9 0.0 - 4.0 03/22 [facility] HEMATOLOGY Monocytes 4.9 2.0 - 12.0 03/22 [facility] HEMATOLOGY Basophils 0.6 0.0 - 1.0 03/22 [facility] HEMATOLOGY MCHC 33.2 32.0 - 03/22 MH 36.0 [facility] HEMATOLOGY MCV 92.0 80.0 - 03/22 94.0 [facility] HEMATOLOGY Hgb 11.9 14.0 - 03/22 MH 18.0 [facility] MCH 30.5 27.0 - 03/22 MH 31.0 [facility] HEMATOLOGY Hct 35.7 42.0 - 03/22 MH 54.0 [facility] HEMATOLOGY MPV 8.9 7.4 - 10.4 03/22 [facility] HEMATOLOGY Platelet 58 133 - 450 03/22 [facility] HEMATOLOGY RDW 16.4 11.5 - 03/22 MH 14.5 [facility] HEMATOLOGY RBC 3.88 4.70 - 03/22 6.10 [facility] HEMATOLOGY WBC 5.3 3.7 - 10.4 03/22 [facility] ELECTROLYT AGAP 14.5 10.0 - 03/21 ES 20.0 [facility] ELECTROLYT eGFR 22 03/21 Result ES Comment: The [facility] eGFR is calculated using the [...] 0.50 - 11 ES Lvl 1.40 /2016 [facility] ELECTROLYT BUN 44 7 - 22 03/21 ES /2016 [facility] ELECTROLYT Chloride Lvl 97 95 - 109 03/21 ES /2016 [facility] ELECTROLYT Sodium Lvl 135 135 - 145 03/21 ES [facility] ELECTROLYT Potassium 3.5 3.5 - 5.1 03/21 ES Lvl /2016 [facility] ELECTROLYT Calcium Lvl 9.0 8.5 - 10.5 03/21 ES [facility] ELECTROLYT CO2 27 24 - 32 03/21 ES [facility] ELECTROLYT Glucose Lvl 101 70 - 99 03/21 ES [facility] HEMATOLOGY Basophils # 0.0 0.0 - 0.2 03/21 [facility] HEMATOLOGY Anisocyte 1+ None Seen 03/21 *ABN* /2016 [facility] (03/21/17 3:55 AM) HEMATOLOGY Eosinophils 1.4 0.0 - 4.0 03/21 [facility] HEMATOLOGY Monocytes 4.9 2.0 - 12.0 03/21 [facility] HEMATOLOGY Lymphocytes 27.5 20.0 - 03/21 MH 40.0 /2017 [facility] HEMATOLOGY Monocytes # 0.2 0.0 - 0.8 03/21 [facility] HEMATOLOGY Lymphocytes 1.4 1.0 - 5.5 03/21 MH # /2016 [facility] HEMATOLOGY Basophils 0.6 0.0 - 1.0 03/21 [facility] HEMATOLOGY Segs-Bands # 3.3 1.5 - 8.1 03/21 [facility] HEMATOLOGY Segs 65.6 45.0 - 03/21 MH 75.0 /2016 [facility] HEMATOLOGY Eosinophils 0.1 0.0 - 0.5 03/21 MH # /2017 [facility] HEMATOLOGY PT 14.3 12.0 - 11 MH 14.7 /2017 [facility] HEMATOLOGY INR 1.11 0.85 - 03/21 MH 1.17 /2016 [facility] HEMATOLOGY Hgb 12.0 14.0 - 03/21 MH 18.0 [facility] HEMATOLOGY Hct 35.4 42.0 - 03/21 MH 54.0 [facility] HEMATOLOGY MCV 91.2 80.0 - 03/21 MH 94.0 [facility] HEMATOLOGY RBC 3.88 4.70 - 03/21 MH 6.10 [facility] HEMATOLOGY WBC 5.0 3.7 - 10.4 03/21 [facility] HEMATOLOGY RDW 16.3 11.5 - 03/21 MH 14. [facility] HEMATOLOGY Platelet 65 133 - 450 03/21 [facility] HEMATOLOGY MPV 8.8 7.4 - 10.4 03/21 [facility] HEMATOLOGY MCH 30.8 27.0 - 03/21 MH 31.0 [facility] HEMATOLOGY MCHC 33.8 32.0 - 03/21 MH 36.0 [facility] IMMUNOLOGY PAO Negative Negative 03/21 (03/21/17 3:55 AM) [facility] ELECTROLYT AGAP 16.2 10.0 - 03/20 ES 20.0 [facility] ELECTROLYT eGFR 24 03/20 Result Comment: [facility] eGFR is calculated using the [...] Calcium Lvl 9.1 8.5 - 10.5 03/20 [facility] ELECTROLYT Glucose Lvl 95 70 - 99 03/20 [facility] ELECTROLYT BUN 43 7 - 22 03/20 [facility] ELECTROLYT Chloride Lvl 98 95 - 109 03/20 ES [facility] ELECTROLYT Potassium 3.2 3.5 - 5.1 03/20 [facility] Lv [facility] ELECTROLYT CO2 24 24 - 32 03/20 [facility] ELECTROLYT Sodium Lvl 135 135 - 145 03/20 ES [facility] ELECTROLYT Creatinine 2.70 0.50 - 03/20 ES Lvl 1.40 [facility] HEMATOLOGY PT 14.4 12.0 - 03/20 14.7 [facility] HEMATOLOGY INR 1.12 0.85 - 11 1.17 [facility] HEMATOLOGY INR 1.20 0.85 - 03/19 1.17 [facility] HEMATOLOGY PT 15.3 12.0 - 03/19 14.7 [facility] CHEM PANEL Phosphorus 2.3 2.5 - 4.5 03/18 [facility] CHEM PANEL Albumin Lvl 2.9 3.5 - 5.0 03/18 [facility] CHEM PANEL Magnesium 2.0 1.8 - 2.4 03/18 Lvl [facility] HEMATOLOGY Basophils # 0.0 0.0 - 0.2 03/18 [facility] HEMATOLOGY PTT 38.2 22.9 - 03/18 35. [facility] IMMUNOLOGY RF Qnt <10 0 - 20 03/18 [facility] HEMATOLOGY PTT 49.8 22.9 - 03/18 35.8 [facility] HEMATOLOGY PTT 33.2 22.9 - 03/18 35. [facility] HEMATOLOGY D-Dimer 3.61 03/17 [facility] Fibrinogen 447 230 - 510 03/17 Lvl [facility] Heparin Negative 1 Negative 03/17 Result Ab(HASEEB) (03/17/17 12:58 PM) Comment: is [facility] assay detects heparin antibodies of IgG isotype. Antibodies of other isotypes have been reported to cause heparin-induc ed thrombocytope neel. Therefore, if there is a strong clinical suspicion of HIT, additional study with a serotonin release assay is recommented. HEMATOLOGY Pat Od Value 0.069 03/17 [facility] HEMATOLOGY Pos CO Value 0.400 03/17 [facility] HEMATOLOGY PB Smear Mild 03/17 Path [facility] with normochrom ic, normocytic indices. Moderate thrombocyt openia. No significan t microangio pathic changes seen. Clinical and laboratory correlatio n required. CHEM PANEL Albumin Lvl 3.0 3.5 - 5.0 03/17 [facility] CHEM PANEL Phosphorus 2.4 2.5 - 4.5 03/17 [facility] CHEM PANEL Magnesium 2.3 1.8 - 2.4 03/17 Lvl [facility] URINE AND UA Protein Negative Negative 03/17 STOOL mg/dL mg/dL [facility] URINE AND UA pH 6.0 5.0 - 8.0 03/17 STOOL [facility] URINE AND UA Glucose Negative Negative 03/17 STOOL mg/dL mg/dL [facility] URINE AND UA Spec Grav 1.012 <=1.030 03/17 STOOL [facility] URINE AND UA <=1.0 0.1 - 1.0 03/17 STOOL Urobilinogen [facility] URINE AND UA Color Yellow 03/17 STOOL [facility] URINE AND UA Mucus Few /LPF None Seen 03/17 STOOL /LPF [facility] URINE AND UA WBC 1 0 - 5 03/17 STOOL [facility] URINE AND UA Sq Epi Occasional Few /LPF 03/17 STOOL /LPF [facility] URINE AND UA Leuk Est Negative Negative 03/17 STOOL (03/16/17 8:57 PM) [facility] est URINE AND UA Nitrite Negative Negative 03/17 STOOL (03/16/17 8:57 PM) [facility] est URINE AND UA Blood Negative Negative 03/17 STOOL (03/16/17 8:57 PM) [place] [facility] URINE AND UA Bili Negative Negative 03/17 STOOL *NA* /2016 [facility] (03/16/17 8:57 PM) URINE AND UA Ketones Trace Negative 03/17 STOOL mg/dL mg/dL [facility] URINE AND UA Turbidity Clear Clear 03/17 STOOL (03/16/17 8:57 PM) [facility] est URINE CHEM U Prot/Creat 0.1 03/17 [facility] URINE CHEM U Eos None Seen None Seen 03/17 (03/16/17 8:57 PM) [facility] est URINE CHEM U Creatinine 137.00 03/17 [facility] URINE CHEM U Protein 14.8 03/17 [facility] URINE CHEM U Sodium 33 03/17 [facility] CARDIAC CK MB Index 1.8 0.0 - 2.5 03/16 ENZYMES [facility] CARDIAC Total CK 115 12 - 191 03/16 ENZYMES [facility] CARDIAC CK MB 2.1 0.5 - 3.6 03/16 ENZYMES [facility] CARDIAC Troponin-I 0.15 0.00 - 03/16 ENZYMES 0.40 [facility] CARDIAC BNP 255 <=100 03/16 EN[place]YMES pg/mL /2016 [facility] CHEM PANEL Procalcitoni 0.07 0.00 - 03/16 n Lvl 0.10 [facility] HEMATOLOGY Sed Rate 54 0 - 15 03/16 [facility] ELECTROLYT AGAP 15.7 10.0 - 03/11 ES 20.0 [facility] ELECTROLYT CO2 24 24 - 32 03/11 [facility] ELECTROLYT Sodium Lvl 143 135 - 145 03/11 [facility] ELECTROLYT Potassium 3.7 3.5 - 5.1 03/11 ES Lvl [facility] ELECTROLYT Chloride Lvl 107 95 - 109 03/11 [facility] ELECTROLYT eGFR 43 03/11 Comment: The [facility] eGFR is calculated using the [...] Lvl 7.9 8.5 - 10.5 03/11 ES [facility] ELECTROLYT Glucose Lvl 114 70 - 99 03/11 [facility] ELECTROLYT BUN 34 7 - 22 03/11 [facility] ELECTROLYT Creatinine 1.70 0.50 - 03/11 ES Lvl 1.40 [facility] LIPIDS VLDL 17 03/11 [facility] LIPIDS LDL 31 <=99 mg/dL 03/11 (Calculated) [facility] LIPIDS Chol 102 <=199 03/11 MH mg/dL [facility] LIPIDS Trig 85 <=149 03/11 mg/dL /2015 [facility] LIPIDS CHD Risk 1.89 4.00 - 03/11 7.30 [facility] LIPIDS HDL 54 >=61 mg/dL 03/11 [facility] CARDIAC BNP 241 <=100 03/09 EN[place]YMES pg/mL /2015 [facility] CARDIAC CK MB Index 2.0 0.0 - 2.5 03/09 MH ENZYMES [facility] CARDIAC Troponin-I 0.19 0.00 - 03/09 ENZYMES 0.40 [facility] CARDIAC CK MB 1.7 0.5 - 3.6 03/09 ENZYMES [facility] CARDIAC Total CK 84 12 - 191 03/09 ENZYMES [facility] CHEM PANEL eGFR 35 03/09 Result Comment: The [facility] eGFR is calculated using the [...] PANEL CO2 29 24 - 32 03/09 [facility] CHEM PANEL Potassium 3.8 3.5 - 5.1 03/09 Lvl [facility] CHEM PANEL Calcium Lvl 8.2 8.5 - 10.5 03/09 [facility] CHEM PANEL Chloride Lvl 104 95 - 109 03/09 [facility] CHEM PANEL Sodium Lvl 143 135 - 145 03/09 [facility] CHEM PANEL Creatinine 2.00 0.50 - 03/09 Lvl 1.40 /2015 [facility] CHEM PANEL BUN 34 7 - 22 03/09 [facility] CHEM PANEL Glucose Lvl 145 70 - 99 03/09 [facility] CHEM PANEL AGAP 13.8 10.0 - 03/09 MH 20.0 /2015 [facility] HEMATOLOGY MPV 10.1 7.4 - 10.4 03/09 [facility] HEMATOLOGY Platelet 143 133 - 450 03/09 [facility] HEMATOLOGY RDW 18.7 11.5 - 03/09 MH 14.5 /2015 [facility] HEMATOLOGY Hgb 12.4 14.0 - 03/09 MH 18.0 /2015 [facility] HEMATOLOGY MCHC 32.0 32.0 - 03/09 MH 36.0 /2015 [facility] HEMATOLOGY MCH 27.8 27.0 - 03/09 MH 31.0 [facility] HEMATOLOGY MCV 86.7 80.0 - 03/09 MH 94.0 /2015 [facility] HEMATOLOGY Hct 38.7 42.0 - 03/09 MH 54.0 /2015 [facility] HEMATOLOGY RBC 4.46 4.70 - 03/09 MH 6. [facility] HEMATOLOGY WBC 6.5 3.7 - 10.4 03/09 [facility] HEMATOLOGY Monocytes 3.9 2.0 - 12.0 03/09 [facility] HEMATOLOGY Lymphocytes 2.0 1.0 - 5.5 03/09 MH # /2015 [facility] HEMATOLOGY Segs-Bands # 4.1 1.5 - 8.1 03/09 [facility] HEMATOLOGY Basophils # 0.0 0.0 - 0.2 03/09 [facility] HEMATOLOGY Basophils 0.5 0.0 - 1.0 03/09 [facility] HEMATOLOGY Eosinophils 1.7 0.0 - 4.0 03/09 [facility] HEMATOLOGY Eosinophils 0.1 0.0 - 0.5 03/09 MH # /2015 [facility] HEMATOLOGY Monocytes # 0.3 0.0 - 0.8 03/09 [facility] HEMATOLOGY Lymphocytes 30.7 20.0 - 03/09 MH 40.0 [facility] HEMATOLOGY Segs 63.2 45.0 - 03/09 MH 75.0 /2015 [facility] URINE AND UA WBC 6 0 - 5 03/09 STOOL /2015 [facility] URINE AND UA RBC 1 0 - 2 03/09 STOOL [facility] URINE AND UA Sq Epi Occasional Few /LPF 03/09 STOOL /LPF /2015 [facility] URINE AND UA Leuk Est Small Negative 03/09 STOOL *ABN* /2015 [facility] (03/09/16 4:57 PM) URINE AND UA Nitrite Negative Negative 03/09 STOOL (03/09/16 4:57 PM) [facility] URINE AND UA <=1.0 0.1 - 1.0 03/09 STOOL Urobilinogen /2015 [facility] URINE AND UA Bili Negative Negative 03/09 STOOL *NA* /2015 [facility] (03/09/16 4:57 PM) URINE AND UA Ketones Negative Negative 03/09 STOOL mg/dL mg/dL /2015 [facility] URINE AND UA Blood Negative Negative 03/09 STOOL (03/09/16 4:57 PM) [facility] URINE AND UA Protein Negative Negative 03/09 STOOL mg/dL mg/dL [facility] URINE AND UA pH 7.0 5.0 - 8.0 03/09 STOOL [facility] URINE AND UA Glucose Negative Negative 03/09 STOOL mg/dL mg/dL [facility] URINE AND UA Turbidity Clear Clear 03/09 STOOL (03/09/16 4:57 PM) [facility] URINE AND UA Color Light Yellow Yellow 03/09 STOOL *NA* /2015 [facility] (03/09/16 4:57 PM) URINE AND UA Spec Grav 1.009 <=1.030 03/09 STOOL [facility] CARDIAC CK MB Index 1.0 0.0 - 2.5 01/17 [place] EN[facility]YM[facility] CARDIAC CK MB 0.9 0.5 - 3.6 01/17 [place] EN[facility] CARDIAC Troponin-I 0.17 0.00 - 01/17 [place] ENZYMES 0.40 /2015 [facility] CARDIAC Total CK 91 12 - 191 01/17 [place] ELECTROLYT AGAP 12.1 10.0 - 01/17 [place] ES 20.0 /2015 [place] ELECTROLYT Potassium 4.1 3.5 - 5.1 01/17 [place] ES Lvl /2015 [place] ELECTROLYT Chloride Lvl 105 95 - 109 01/17 [place] ELECTROLYT eGFR 34 01/17 [facility] [place] ES Comment: [facility] [place] eGFR is [...] eGFR 35 01/16 Result [place] Comment: The [facility] eGFR is calculated using the CKD-EPI formula. [...] PANEL eGFR 47 05/28 Result Comment: [facility] eGFR is calculated using the CKD-EPI formula. [...] Positive Negative 05/28 [place] STOOL *ABN* /2015 [facility] (05/28/15 3:44 PM) URINE AND UA Spec [...] 12.2 12.0 - 12/15 MH 14.7 /2015 [facility] HEMATOLOGY POC INR 1.0 0.9 - 1.2 04/23 MH /2014 [facility] CARDIAC CK MB Index 0.9 0.0 - 2.5 04/22 MH ENZYMES /2014 [facility] CARDIAC Troponin-I 0.20 0.00 - 04/22 ENZYMES 0.40 /2014 [facility] CARDIAC CK MB 1.6 0.5 - 3.6 04/22 ENZYMES /2014 [facility] CARDIAC Total CK 176 12 - 191 04/22 MH ENZYMES /2014 [facility] CARDIAC Troponin-I 0.24 0.00 - 04/21 MH ENZYMES 0.40 /2014 [facility] CARDIAC CK MB 2.3 0.5 - 3.6 04/21 MH ENZYMES /2014 [facility] CARDIAC Total CK 133 12 - 191 04/21 MH ENZYMES /2014 [facility] CARDIAC CK MB Index 1.7 0.0 - 2.5 04/21 MH ENZYMES /2014 [facility] CARDIAC BNP 118 <=100 04/21 EN[place]YM[place] pg/mL /2014 [facility] CARDIAC CK MB 1.8 0.5 - 3.6 04/21 ENZYMES /2014 [facility] CARDIAC Troponin-I 0.24 0.00 - 04/21 ENZYMES 0.40 /2014 [facility] CARDIAC Total CK 131 12 - 191 04/21 MH ENZYMES /2014 [facility] CARDIAC CK MB Index 1.4 0.0 - 2.5 04/21 ENZYMES /2014 [facility] CHEM PANEL Phosphorus 2.2 2.5 - 4.5 04/21 [facility] CHEM PANEL Magnesium 2.0 1.8 - 2.4 04/21 Lvl /2014 [facility] CHEM PANEL Glucose Lvl 97 70 - 99 04/21 [facility] CHEM PANEL BUN 20 7 - 22 04/21 [facility] CHEM PANEL Total 6.9 6.4 - 8.4 04/21 Protein /2014 [facility] CHEM PANEL Albumin Lvl 3.1 3.5 - 5.0 04/21 [facility] CHEM PANEL ALT 18 0 - 65 04/21 [facility] CHEM PANEL Creatinine 1.70 0.50 - 04/21 MH Lvl 1.40 [facility] CHEM PANEL Chloride Lvl 109 95 - 109 04/21 [facility] CHEM PANEL Sodium Lvl 144 135 - 145 04/21 [facility] CHEM PANEL Alk Phos 73 39 - 136 04/21 [facility] CHEM PANEL Potassium 3.6 3.5 - 5.1 12/13 MH Lvl /2014 [facility] CHEM PANEL AST 24 0 - 37 04/21 [facility] CHEM PANEL eGFR 43 04/21 Comment: The [facility] eGFR is calculated using the [...] Calcium Lvl 8.2 8.5 - 10.5 04/21 [facility] CHEM PANEL CO2 27 24 - 32 04/21 [facility] CHEM PANEL Bili Total 0.5 0.2 - 1.3 04/21 [facility] CHEM PANEL B/C Ratio 12 6 - 25 04/21 [facility] CHEM PANEL Globulin 3.8 2.0 - 4.0 04/21 [facility] CHEM PANEL A/G Ratio 0.8 0.7 - 1.6 04/21 [facility] CHEM PANEL AGAP 11.6 10.0 - 04/21 MH 20.0 [facility] HEMATOLOGY MCV 88.7 80.0 - 04/21 MH 94.0 /2014 [facility] HEMATOLOGY RBC 3.94 4.70 - 04/21 MH 6.10 /2014 [facility] HEMATOLOGY Hgb 11.1 14.0 - 04/21 MH 18.0 [facility] HEMATOLOGY WBC 4.8 3.7 - 10.4 04/21 [facility] HEMATOLOGY Hct 35.0 42.0 - 04/21 MH 54.0 /2014 [facility] HEMATOLOGY Platelet 85 133 - 450 04/21 [facility] HEMATOLOGY MCH 28.3 27.0 - 04/21 MH 31.0 /2014 [facility] HEMATOLOGY MCHC 31.9 32.0 - 04/21 MH 36.0 /2014 [facility] HEMATOLOGY RDW 17.7 11.5 - 04/21 MH 14.5 /2014 [facility] HEMATOLOGY MPV 10.2 7.4 - 10.4 04/21 /2014 [facility] HEMATOLOGY Lymphocytes 29.8 20.0 - 04/21 MH 40.0 /2014 [facility] HEMATOLOGY Monocytes 5.3 2.0 - 12.0 04/21 [facility] HEMATOLOGY Eosinophils 3.2 0.0 - 4.0 04/21 /2014 [facility] HEMATOLOGY Segs 61.4 45.0 - 04/21 MH 75.0 /2014 [facility] HEMATOLOGY Segs-Bands # 3.0 1.5 - 8.1 04/21 [facility] HEMATOLOGY Lymphocytes 1.4 1.0 - 5.5 04/21 # /2014 [facility] HEMATOLOGY Basophils 0.3 0.0 - 1.0 04/21 [facility] HEMATOLOGY Basophils # 0.0 0.0 - 0.2 04/21 [facility] HEMATOLOGY Monocytes # 0.3 0.0 - 0.8 04/21 [facility] HEMATOLOGY Eosinophils 0.2 0.0 - 0.5 04/21 # /2014 [facility] LIPIDS CHD Risk 2.04 4.00 - 04/21 7.30 /2014 [facility] LIPIDS VLDL 14 04/21 [facility] LIPIDS LDL 33 <=99 mg/dL 04/21 (Calculated) [facility] LIPIDS Chol 92 <=199 04/21 mg/dL /2014 [facility] LIPIDS HDL 45 >=61 mg/dL 04/21 [facility] LIPIDS Trig 70 <=149 04/21 mg/dL /2014 [facility] SPECIAL Hgb A1C 5.7 <=5.6 % 04/21 CHEMISTRY [facility] CARDIAC Total CK 66 12 - 191 02/02 MH ENZYMES [facility] CHEM PANEL eGFR 38 02/02 Result Comment: The [facility] eGFR is calculated using the [...] PANEL AST 20 0 - 37 02/02 [facility] CHEM PANEL Alk Phos 112 39 - 136 02/02 [facility] CHEM PANEL ALT 16 0 - 65 02/02 [facility] CHEM PANEL Bili Total 0.7 0.2 - 1.3 02/02 [facility] CHEM PANEL Potassium 3.4 3.5 - 5.1 02/02 Lvl [facility] CHEM PANEL Chloride Lvl 105 95 - 109 02/02 [facility] CHEM PANEL Albumin Lvl 3.4 3.5 - 5.0 02/02 [facility] CHEM PANEL Total 8.3 6.4 - 8.4 02/02 [facility] CHEM PANEL CO2 25 24 - 32 02/02 [facility] CHEM PANEL Calcium Lvl 8.7 8.5 - 10.5 02/02 [facility] CHEM PANEL BUN 13 7 - 22 02/02 [facility] CHEM PANEL Sodium Lvl 137 135 - 145 02/02 [facility] CHEM PANEL Creatinine 1.9 0.5 - 1.4 02/02 Lvl [facility] CHEM PANEL Glucose Lvl 111 70 - 99 02/02 [facility] CHEM PANEL A/G Ratio 0.7 0.7 - 1.6 02/02 [facility] CHEM PANEL B/C Ratio 7 6 - 25 02/02 [facility] CHEM PANEL Globulin 4.9 2.0 - 4.0 02/02 [facility] CHEM PANEL AGAP 10.4 10.0 - 02/02 MH 20.0 [facility] HEMATOLOGY RDW 16.8 11.5 - 02/02 14.5 [facility] HEMATOLOGY Platelet 139 133 - 450 02/02 [facility] HEMATOLOGY MPV 8.2 7.4 - 10.4 02/02 [facility] HEMATOLOGY WBC 5.1 3.7 - 10.4 02/02 [facility] HEMATOLOGY Hgb 11.3 14.0 - 02/02 MH 18.0 /2014 [facility] HEMATOLOGY Hct 36.3 42.0 - 02/02 MH 54.0 /2014 [facility] HEMATOLOGY MCHC 31.2 32.0 - 02/02 MH 36.0 /2014 [facility] HEMATOLOGY RBC 4.04 4.70 - 02/02 MH 6.10 /2014 [facility] HEMATOLOGY MCV 89.8 80.0 - 02/02 MH 94.0 /2014 [facility] MCH 28.0 27.0 - 02/02 MH 31.0 /2014 [facility] HEMATOLOGY Segs-Bands # 3.3 1.5 - 8.1 02/02 /2014 [facility] HEMATOLOGY Basophils 0.6 0.0 - 1.0 02/02 [facility] HEMATOLOGY Monocytes # 0.4 0.0 - 0.8 02/02 [facility] HEMATOLOGY Basophils # 0.0 0.0 - 0.2 02/02 /2014 [facility] HEMATOLOGY Segs 65.9 45.0 - 02/02 MH 75.0 /2014 [facility] HEMATOLOGY Eosinophils 3.3 0.0 - 4.0 02/02 [facility] HEMATOLOGY Monocytes 7.0 2.0 - 12.0 02/02 [facility] HEMATOLOGY Lymphocytes 1.2 1.0 - 5.5 02/02 MH # /2014 [facility] HEMATOLOGY Eosinophils 0.2 0.0 - 0.5 02/02 /2014 [facility] Lymphocytes 23.2 20.0 - 02/02 40.0 /2014 [facility] CARDIAC BNP 185 <=100 07/07 <sup>3</sup>I Sugar ENZYMES pg/mL /2014 nterpretive [facility] Data: Elevated results are in line with increasing severity of
con gestive heart failure. Minor elevations between 100 and 300
may be seen with Myocardial Ischemia, Sodium retaining drugs,
an d compensated/t reated heart failure. HEMATOLOGY INR 1.01 0.85 - 07/07 <sup>4</sup>I Suga r 1.17 /2014 nterpretive [facility] Data: RECOMMENDED RANGES FOR PROTIME INR:
2.0-3.0 for most medical and surgical thromboemboli c states.
2.5-3.5 for artificial heart valves and recurrent embolism.<br/ >
INR SHOULD BE USED ONLY FOR PATIENTS ON STABLE ANTICOAGULANT THERAPY. HEMATOLOGY PTT 27.2 22.9 - 07/07 <sup>5</sup>I Suga r 35.8 /2014 nterpretive [facility] Data: Heparin Therapeutic Range: 57 - 92 Seconds HEMATOLOGY PT 13.3 12.0 - 07/07 Sugar 14.7 /2014 [facility] CARDIAC CK MB Index 0.8 0.0 - 2.5 07/07 Sugar ENZYMES /2014 [facility] CARDIAC Total CK 121 12 - 191 07/07 Sugar ENZYMES /2014 [facility] CARDIAC CK MB 1.0 0.5 - 3.6 07/07 Sugar ENZYMES /2014 [facility] CARDIAC Troponin-I 0.28 0.00 - 07/07 Sugar [...] values reflect the clinical guidelines
of the [place] [employer]. CHEM PANEL BUN 44 7 [...] 35.8 32.0 - 07/07 Sugar 36.0 /2014 [facility] HEMATOLOGY MCV 80.3 80.0 - 07/07 Sugar 94.0 /2014 [facility] HEMATOLOGY MCH 28.7 27.0 - 07/07 Sugar 31.0 /2014 [facility] HEMATOLOGY Platelet 105 133 - 450 07/07 MH Sugar /2014 [facility] HEMATOLOGY MPV 10.1 7.4 - 10.4 07/07 Sugar /2014 [facility] HEMATOLOGY RDW 18.6 11.5 - 07/07 Sugar 14.5 /2014 [facility] HEMATOLOGY RBC 4.19 4.70 - 07/07 Sugar 6.10 /2014 [facility] HEMATOLOGY Hgb 12.0 14.0 - 07/07 Sugar 18.0 /2014 [facility] HEMATOLOGY WBC 6.5 3.7 - 10.4 07/07 Sugar /2014 [facility] CHEM PANEL eGFR 34 04/02 <sup>1</sup>R esult [facility] Comment: The eGFR is calculated [...] 24 24 - 32 04/02 MH Dioxide [facility] CHEM PANEL POC Chloride 102 95 - 109 04/02 [facility] CHEM PANEL POC 4.2 3.5 - 5.1 04/02 Potassium [facility] CHEM PANEL POC Ion Ca 1.24 1.05 - 04/02 MH 1.25 /2013 [facility] CHEM PANEL POC Sodium 142 135 - 145 04/02 [facility] CHEM PANEL POC 2.1 0.5 - 1.4 04/02 Creatinine [facility] CHEM PANEL POC 11.2 14.0 - 04/02 Hemoglobin 18.0 [facility] CHEM PANEL POC BUN 28 7 - 22 04/02 [facility] CHEM PANEL POC Glucose 101 70 - 99 04/02 [facility] CHEM PANEL POC AGAP 21.0 10.0 - 04/02 MH 20.0 [facility] CHEM PANEL POC 33.0 42.0 - 04/02 Hematocrit 54.0 [facility] BLOOD BANK ABO/Rh AB POS 03/30 RESULTS /2013 [facility] BLOOD BANK Antibody Negative 03/30 RESULTS Scrn (03/30/14 11:25 AM) [facility] BLOOD BANK RBC product Product available 03/30 RESULTS (03/30/14 11:25 AM) [facility] ELECTROLYT AGAP 10.7 10.0 - 03/30 ES 20.0 [facility] ELECTROLYT eGFR 34 03/30 <sup>2</sup>R MH esult [facility] Comment: The eGFR is calculated [...] Lvl 143 135 - 145 03/30 ES [facility] ELECTROLYT Creatinine 2.1 0.5 - 1.4 03/30 ES Lvl [facility] ELECTROLYT BUN 34 7 - 22 03/30 ES [facility] ELECTROLYT Potassium 3.7 3.5 - 5.1 03/30 ES Lvl [facility] ELECTROLYT CO2 30 24 - 32 03/30 ES [facility] ELECTROLYT Chloride Lvl 106 95 - 109 03/30 ES [facility] ELECTROLYT Calcium Lvl 8.6 8.5 - 10.5 03/30 ES /2013 [facility] ELECTROLYT Glucose Lvl 88 70 - 99 03/30 <sup>3</sup>I ES nterpretive [facility] Data: Adult reference range values reflect the clinical guidelines
of the [place] [employer]. HEMATOLOGY PTT 27.7 22.9 - 03/30 <sup>5</sup>I 35.8 /2013 nterpretive [facility] Data: Heparin Therapeutic Range: 57 - 92 Seconds HEMATOLOGY RBC 3.57 4.70 - 03/30 6.10 /2013 [facility] HEMATOLOGY WBC 4.9 3.7 - 10.4 03/30 [facility] HEMATOLOGY Hct 30.9 42.0 - 03/30 54.0 /2013 [facility] HEMATOLOGY Hgb 10.1 14.0 - 03/30 18.0 [facility] HEMATOLOGY MCH 28.2 27.0 - 03/30 31.0 /2013 [facility] HEMATOLOGY MCV 86.5 80.0 - 03/30 94.0 /2013 [facility] HEMATOLOGY MCHC 32.6 32.0 - 03/30 36.0 /2013 [facility] HEMATOLOGY RDW 18.3 11.5 - 03/30 14.5 /2013 [facility] HEMATOLOGY MPV 9.1 7.4 - 10.4 03/30 [facility] HEMATOLOGY Platelet 122 133 - 450 03/30 [facility] HEMATOLOGY Eosinophils 3.5 0.0 - 4.0 03/30 [facility] HEMATOLOGY Monocytes 5.1 2.0 - 12.0 03/30 [facility] HEMATOLOGY Lymphocytes 1.2 1.0 - 5.5 03/30 MH # /2013 [facility] HEMATOLOGY Segs-Bands # 3.3 1.5 - 8.1 03/30 [facility] HEMATOLOGY Eosinophils 0.2 0.0 - 0.5 03/30 # /2013 [facility] HEMATOLOGY Lymphocytes 23.7 20.0 - 03/30 40.0 /2013 [facility] HEMATOLOGY Segs 67.4 45.0 - 03/30 75.0 /2013 [facility] HEMATOLOGY Basophils 0.3 0.0 - 1.0 03/30 [facility] HEMATOLOGY Monocytes # 0.3 0.0 - 0.8 03/30 [facility] HEMATOLOGY Basophils # 0.0 0.0 - 0.2 03/30 [facility] HEMATOLOGY Plt Morph Normal 03/30 (03/30/14 11:25 AM) [facility] HEMATOLOGY RBC Morph Normal 03/30 (03/30/14 11:25 AM) [facility] HEMATOLOGY INR 1.08 0.85 - 03/30 <sup>4</sup>I 1.17 nterpretive [facility] Data: RECOMMENDED RANGES FOR PROTIME INR:
2.0-3.0 for most medical and surgical thromboemboli c states.
2.5-3.5 for artificial heart valves and recurrent embolism.<br/ >
INR SHOULD BE USED ONLY FOR PATIENTS ON STABLE ANTICOAGULANT THERAPY. HEMATOLOGY PT 14.1 12.0 - 03/30 14.7 [facility] ELECTROLYT AGAP 10.4 10.0 - 03/05 ES 20.0 [facility] ELECTROLYT eGFR 38 03/05 <sup>1</sup>R [facility] Comment: The eGFR is calculated [...] ELECTROLYT CO2 31 24 - 32 03/05 [facility] ELECTROLYT Calcium Lvl 8.4 8.5 - 10.5 03/05 [facility] ELECTROLYT Sodium Lvl 140 135 - 145 03/05 [facility] ELECTROLYT Potassium 3.4 3.5 - 5.1 03/05 ES Lvl [facility] ELECTROLYT Chloride Lvl 102 95 - 109 03/05 ES [facility] ELECTROLYT BUN 13 7 - 22 03/05 ES [facility] ELECTROLYT Creatinine 1.9 0.5 - 1.4 03/05 ES Lvl /2013 [facility] ELECTROLYT Glucose Lvl 80 70 - 99 03/05 <sup>4</sup>I ES nterpretive [facility] Data: Adult reference range values reflect the clinical guidelines
of the [place] [employer]. HEMATOLOGY Monocytes 6.9 2.0 - 12.0 03/05 [facility] HEMATOLOGY Basophils 0.8 0.0 - 1.0 03/05 [facility] HEMATOLOGY Eosinophils 3.8 0.0 - 4.0 03/05 [facility] HEMATOLOGY Monocytes # 0.4 0.0 - 0.8 03/05 [facility] HEMATOLOGY Eosinophils 0.2 0.0 - 0.5 03/05 # /2013 [facility] HEMATOLOGY Lymphocytes 23.4 20.0 - 03/05 40.0 /2013 [facility] HEMATOLOGY Segs 65.1 45.0 - 03/05 75.0 /2013 [facility] HEMATOLOGY Lymphocytes 1.3 1.0 - 5.5 03/05 MH # /2013 [facility] HEMATOLOGY Segs-Bands # 3.7 1.5 - 8.1 03/05 [facility] HEMATOLOGY MCHC 32.3 32.0 - 03/05 36.0 /2013 [facility] HEMATOLOGY RDW 16.7 11.5 - 03/05 14.5 /2013 [facility] HEMATOLOGY Platelet 93 133 - 450 03/05 [facility] HEMATOLOGY MPV 9.2 7.4 - 10.4 03/05 [facility] HEMATOLOGY MCH 29.2 27.0 - 03/05 31.0 /2013 [facility] HEMATOLOGY WBC 5.7 3.7 - 10.4 03/05 [facility] HEMATOLOGY MCV 90.6 80.0 - 03/05 94.0 /2013 [facility] HEMATOLOGY Hct 34.5 42.0 - 03/05 54.0 /2013 [facility] HEMATOLOGY RBC 3.81 4.70 - 03/05 6.10 [facility] HEMATOLOGY Hgb 11.1 14.0 - 03/05 18.0 /2013 [facility] IMMUNOLOGY SS-B (La) Ab <0.2 <=0.9 AI 03/04 [facility] IMMUNOLOGY SS-A (Ro) Ab <0.2 <=0.9 AI 03/04 [facility] IMMUNOLOGY DNA Ab (DS) Negative Negative 03/04 (03/04/14 2:39 PM) [facility] IMMUNOLOGY Sm Ab <0.2 <=0.9 AI 03/04 [facility] IMMUNOLOGY OBSTETRICAL NURSE Ab <0.2 <=0.9 AI 03/04 [facility] IMMUNOLOGY PAO Titer 1:40 Negative 03/04 *ABN* [facility] (03/04/14 2:39 PM) IMMUNOLOGY PAO Interp Pattern 03/04 appears [facility] speckled IMMUNOLOGY RF Qnt <10 0 - 20 03/04 [facility] IMMUNOLOGY PAO Positive Negative 03/04 *ABN* [facility] (03/04/14 2:39 PM) SPECIAL HIPOLITO 19 8 - 52 03/04 CHEMISTRY [facility] THYROID TSH 4.580 0.360 - 03/04 PANEL 3.740 [facility] CHEM PANEL eGFR 44 03/04 <sup>2</sup>R esult [facility] Comment: The eGFR is calculated [...] Calcium Lvl 8.3 8.5 - 10.5 03/04 [facility] CHEM PANEL Sodium Lvl 141 135 - 145 03/04 [facility] CHEM PANEL Potassium 3.5 3.5 - 5.1 03/04 Lvl [facility] CHEM PANEL Chloride Lvl 105 95 - 109 03/04 [facility] CHEM PANEL CO2 29 24 - 32 03/04 [facility] CHEM PANEL Creatinine 1.7 0.5 - 1.4 03/04 Lvl /2013 [facility] CHEM PANEL BUN 12 7 - 22 03/04 [facility] CHEM PANEL Glucose Lvl 84 70 - 99 03/04 <sup>5</sup>I nterpretive [facility] Data: Adult reference range values reflect the clinical guidelines
of the [place] [employer]. CHEM PANEL AGAP 10.5 10.0 - 03/04 20.0 [facility] HEMATOLOGY Lymphocytes 1.4 1.0 - 5.5 03/04 MH # /2013 [facility] HEMATOLOGY Segs-Bands # 4.3 1.5 - 8.1 03/04 [facility] HEMATOLOGY Basophils 0.7 0.0 - 1.0 03/04 [facility] HEMATOLOGY Eosinophils 4.0 0.0 - 4.0 03/04 [facility] HEMATOLOGY Eosinophils 0.3 0.0 - 0.5 03/04 # /2013 [facility] HEMATOLOGY Monocytes # 0.4 0.0 - 0.8 03/04 [facility] HEMATOLOGY Monocytes 5.7 2.0 - 12.0 03/04 [facility] HEMATOLOGY Lymphocytes 22.2 20.0 - 03/04 40.0 [facility] HEMATOLOGY Segs 67.4 45.0 - 03/04 75.0 [facility] HEMATOLOGY Hgb 10.4 14.0 - 03/04 18.0 [facility] HEMATOLOGY RBC 3.50 4.70 - 03/04 6.10 [facility] HEMATOLOGY WBC 6.3 3.7 - 10.4 03/04 [facility] HEMATOLOGY MCHC 32.9 32.0 - 03/04 36.0 /2013 [facility] HEMATOLOGY Platelet 83 133 - 450 03/04 [facility] HEMATOLOGY RDW 16.4 11.5 - 03/04 14.5 /2013 [facility] HEMATOLOGY MPV 8.8 7.4 - 10.4 03/04 [facility] HEMATOLOGY MCH 29.5 27.0 - 03/04 31.0 [facility] HEMATOLOGY MCV 89.7 80.0 - 03/04 94.0 /2013 [facility] HEMATOLOGY Hct 31.4 42.0 - 03/04 54.0 /2013 [facility] CHEM PANEL eGFR 44 03/03 <sup>3</sup>R esult [facility] Comment: The eGFR is calculated [...] PANEL CO2 30 24 - 32 03/03 [facility] CHEM PANEL Calcium Lvl 8.5 8.5 - 10.5 03/03 [facility] CHEM PANEL Creatinine 1.7 0.5 - 1.4 03/03 [facility] CHEM PANEL BUN 13 7 - 22 03/03 [facility] CHEM PANEL Glucose Lvl 90 70 - 99 03/03 <sup>6</sup>I nterpretive [facility] Data: Adult reference range values reflect the clinical guidelines
of the [place] [employer]. CHEM PANEL Sodium Lvl 146 135 - 145 03/03 [facility] CHEM PANEL Potassium 3.6 3.5 - 5.1 03/03 [facility] CHEM PANEL Chloride Lvl 109 95 - 109 03/03 [facility] CHEM PANEL AGAP 10.6 10.0 - 03/03 MH 20.0 [facility] HEMATOLOGY MPV 9.3 7.4 - 10.4 03/03 [facility] HEMATOLOGY RBC 3.54 4.70 - 03/03 MH 6.10 [facility] HEMATOLOGY WBC 6.2 3.7 - 10.4 03/03 [facility] HEMATOLOGY Hgb 10.4 14.0 - 03/03 MH 18.0 [facility] HEMATOLOGY Hct 32.0 42.0 - 03/03 MH 54.0 [facility] HEMATOLOGY MCV 90.5 80.0 - 03/03 MH 94.0 [facility] HEMATOLOGY MCH 29.4 27.0 - 03/03 31.0 /2013 [facility] HEMATOLOGY RDW 17.2 11.5 - 03/03 14.5 [facility] HEMATOLOGY MCHC 32.5 32.0 - 03/03 36.0 /2013 [facility] HEMATOLOGY Platelet 100 133 - 450 03/03 [facility] HEMATOLOGY Basophils # 0.0 0.0 - 0.2 03/03 [facility] HEMATOLOGY Monocytes # 0.3 0.0 - 0.8 03/03 [facility] HEMATOLOGY Lymphocytes 1.3 1.0 - 5.5 03/03 [facility] HEMATOLOGY Segs-Bands # 4.2 1.5 - 8.1 03/03 [facility] HEMATOLOGY Eosinophils 0.3 0.0 - 0.5 03/03 [facility] HEMATOLOGY Basophils 0.3 0.0 - 1.0 03/03 [facility] HEMATOLOGY Eosinophils 5.4 0.0 - 4.0 03/03 [facility] HEMATOLOGY Monocytes 5.2 2.0 - 12.0 03/03 [facility] HEMATOLOGY Lymphocytes 20.6 20.0 - 03/03 40.0 [facility] HEMATOLOGY Segs 68.5 45.0 - 03/03 75.0 [facility] HEMATOLOGY Basophils # 0.0 0.0 - 0.2 03/02 [facility] ANEMIA TIBC 252 228 - 428 03/01 STUDY [facility] ANEMIA Iron 44 45 - 160 03/01 [facility] ANEMIA UIBC 208 110 - 370 03/01 STUDY [facility] ANEMIA % [place] 17 12 - 57 03/01 [facility] ANEMIA Ferritin Lvl 89 22 - 275 03/01 [facility] CARDIAC BNP 412 <=100 03/01 <sup>7</sup>I ENZYMES pg/mL /2013 nterpretive [facility] Data: Elevated results are in line with increasing severity of
con gestive heart failure. Minor elevations between 100 and 300
may be seen with Myocardial Ischemia, Sodium retaining drugs,
an d compensated/t reated heart failure. CHEM PANEL Magnesium 2.0 1.8 - 2.4 03/01 Lv [facility] CHEM PANEL Magnesium 1.7 1.8 - 2.4 02/28 Lvl [facility] HEMATOLOGY Basophils # 0.0 0.0 - 0.2 02/28 [facility] CHEM PANEL Magnesium 1.4 1.8 - 2.4 02/27 Lvl /2013 [facility] LIPIDS CHD Risk 1.89 4.00 - 02/27 7.30 /2013 [facility] LIPIDS LDL 23 <=99 mg/dL 02/27 (Calculated) [facility] LIPIDS HDL 37 >=61 mg/dL 02/27 [facility] LIPIDS Chol 70 <=199 02/27 mg/dL [facility] LIPIDS Trig 50 <=149 02/27 mg/dL [facility] LIPIDS VLDL 10 02/27 [facility] VIRAL - Influ B Negative 12 Negative 02/26 <sup>12</sup> SEROLOGY (02/26/14 6:00 PM) Interpretive [facility] Data: Influenza A&B Antigen:
Due [...] SEROLOGY Ag (02/26/14 5:25 PM) /2013 [facility] CARDIAC Troponin-I 0.46 0.00 - 02/26 ENZYMES 0.40 /2013 [facility] CARDIAC Total CK 74 12 - 191 02/26 MH ENZYMES [facility] CARDIAC Troponin-I 0.37 0.00 - 02/26 ENZYMES 0.40 /2013 [facility] CARDIAC Total CK 101 12 - 191 02/26 MH ENZYMES [facility] CARDIAC CK MB Index 1.6 0.0 - 2.5 02/26 ENZYMES [facility] CARDIAC CK MB 1.6 0.5 - 3.6 02/26 ENZYMES [facility] CHEM PANEL A/G Ratio 0.9 0.7 - 1.6 02/26 [facility] CHEM PANEL B/C Ratio 9 6 - 25 02/26 [facility] CHEM PANEL Globulin 3.7 2.0 - 4.0 02/26 [facility] CHEM PANEL ALT 13 0 - 65 02/26 [facility] CHEM PANEL AST 20 0 - 37 02/26 [facility] CHEM PANEL Alk Phos 70 39 - 136 02/26 [facility] CHEM PANEL Bili Total 0.8 0.2 - 1.3 02/26 [facility] CHEM PANEL Total 6.9 6.4 - 8.4 02/26 Protein /2013 [facility] CHEM PANEL Albumin Lvl 3.2 3.5 - 5.0 02/26 [facility] CARDIAC BNP 441 <=100 02/26 <sup>8</sup>I ENZYMES pg/mL nterpretive [facility] Data: Elevated results are in line with increasing severity of
con gestive heart failure. Minor elevations between 100 and 300
may be seen with Myocardial Ischemia, Sodium retaining drugs,
an d compensated/t reated heart failure. URINE AND UA Sq Epi None Seen Few 02/26 STOOL (02/25/14 9:10 PM) [facility] URINE AND UA Bacteria None Seen None Seen 02/26 STOOL (02/25/14 9:10 PM) [facility] URINE AND UA Color Yellow Yellow 02/26 STOOL *NA* /2013 [facility] (02/25/14 9:10 PM) URINE AND UA Nitrite Negative Negative 02/26 STOOL (02/25/14 9:10 PM) [facility] URINE AND UA Leuk Est Negative Negative 02/26 STOOL (02/25/14 9:10 PM) [facility] URINE AND UA Glucose Negative Negative 02/26 STOOL (02/25/14 9:10 PM) [facility] URINE AND UA Ketones Negative Negative 02/26 STOOL *NA* /2013 [facility] (02/25/14 9:10 PM) URINE AND UA Bili Negative Negative 02/26 STOOL *NA* /2013 [facility] (02/25/14 9:10 PM) URINE AND UA Blood Small Negative 02/26 STOOL *ABN* /2013 [facility] (02/25/14 9:10 PM) URINE AND UA 0.2 0.1 - 1.0 02/26 STOOL Urobilinogen /2013 [facility] URINE AND UA Turbidity Clear Clear 02/26 STOOL (02/25/14 9:10 PM) /2013 [facility] URINE AND UA Spec Grav 1.015 <=1.030 02/26 STOOL /2013 [facility] URINE AND UA pH 5.5 5.0 - 8.0 02/26 STOOL [facility] URINE AND UA Protein Negative Negative 02/26 STOOL (02/25/14 9:10 PM) [facility] CARDIAC CK MB 1.9 0.5 - 3.6 02/26 ENZYMES [facility] CARDIAC Troponin-I 0.38 0.00 - 02/26 ENZYMES 0.40 [facility] CARDIAC Total CK 100 12 - 191 02/26 ENZYMES [facility] CARDIAC CK MB Index 1.9 0.0 - 2.5 02/26 ENZYMES [facility] CHEM PANEL Total 7.4 6.4 - 8.4 02/26 Protein [facility] CHEM PANEL Bili Total 0.6 0.2 - 1.3 02/26 [facility] CHEM PANEL Alk Phos 77 39 - 136 02/26 [facility] CHEM PANEL AST 13 0 - 37 02/26 [facility] CHEM PANEL ALT 15 0 - 65 02/26 [facility] CHEM PANEL Albumin Lvl 3.2 3.5 - 5.0 02/26 [facility] CHEM PANEL Globulin 4.2 2.0 - 4.0 02/26 [facility] CHEM PANEL A/G Ratio 0.8 0.7 - 1.6 02/26 [facility] CHEM PANEL B/C Ratio 9 6 - 25 02/26 [facility] [facility] D-Dimer 0.81 02/26 <sup>10</sup> MH Interpretive [facility] Data: In DIC, quantitative D-Dimer is generally greater than
0 .66 ug/mL FEU. Values of quantitative D-Dimer less than
0.40 ug/mL FEU have been reported to be associated with a low
proba bility of deep vein thrombosis/pu lmonary embolism.<br/ >This test alone should not be used to rule out DVT/PE. HEMATOLOGY PTT 42.2 22.9 - 02/26 <sup>11</sup> MH 35.8 /2014 Interpretive [facility] Data: Heparin Therapeutic Range: 57 - 92 Seconds HEMATOLOGY INR 1.36 0.85 - 02/26 <sup>9</sup>I 1.17 nterpretive [facility] Data: RECOMMENDED RANGES FOR PROTIME INR:
2.0-3.0 for most medical and surgical thromboemboli c states.
2.5-3.5 for artificial heart valves and recurrent embolism.<br/ >
INR SHOULD BE USED ONLY FOR PATIENTS ON STABLE ANTICOAGULANT THERAPY. HEMATOLOGY PT 16.9 12.0 - 02/26 MH 14.7 [facility] CHEM PANEL eGFR 38 01/28 <sup>1</sup>R esult [facility] Comment: The eGFR is calculated [...] Calcium Lvl 8.6 8.5 - 10.5 01/28 [facility] CHEM PANEL AGAP 13.1 10.0 - 01/28 MH 20.0 [facility] CHEM PANEL CO2 28 24 - 32 01/28 [facility] CHEM PANEL BUN 24 7 - 22 01/28 [facility] CHEM PANEL Glucose Lvl 99 70 - 99 01/28 <sup>4</sup>I nterpretive [facility] Data: Adult reference range values reflect the clinical guidelines
of the [place] [employer]. CHEM PANEL Chloride Lvl 106 95 - 109 01/28 [facility] CHEM PANEL Potassium 4.1 3.5 - 5.1 01/28 [facility] CHEM PANEL Sodium Lvl 143 135 - 145 01/28 [facility] CHEM PANEL Creatinine 1.7 0.5 - 1.4 01/28 [facility] CHEM PANEL Magnesium 2.1 1.8 - 2.4 01/28 Lvl /2013 [facility] CHEM PANEL Phosphorus 2.6 2.5 - 4.5 01/28 /2013 [facility] HEMATOLOGY Segs-Bands # 5.0 1.5 - 8.1 01/28 [facility] HEMATOLOGY Basophils 0.4 0.0 - 1.0 01/28 [facility] HEMATOLOGY Eosinophils 0.1 0.0 - 0.5 01/28 # /2013 [facility] HEMATOLOGY Monocytes # 0.5 0.0 - 0.8 01/28 [facility] HEMATOLOGY Lymphocytes 1.8 1.0 - 5.5 01/28 # /2013 [facility] HEMATOLOGY Lymphocytes 24.7 20.0 - 01/28 40.0 /2013 [facility] HEMATOLOGY Segs 66.4 45.0 - 01/28 75.0 /2013 [facility] HEMATOLOGY Eosinophils 1.7 0.0 - 4.0 01/28 [facility] HEMATOLOGY Monocytes 6.8 2.0 - 12.0 01/28 /2013 [facility] HEMATOLOGY MPV 10.3 7.4 - 10.4 01/28 [facility] HEMATOLOGY Platelet 79 133 - 450 01/28 [facility] HEMATOLOGY Hgb 11.3 14.0 - 01/28 18.0 /2013 [facility] HEMATOLOGY WBC 7.5 3.7 - 10.4 01/28 [facility] HEMATOLOGY RBC 3.84 4.70 - 01/28 6.10 /2013 [facility] HEMATOLOGY RDW 14.1 11.5 - 01/28 14.5 /2013 [facility] Hct 34.2 42.0 - 01/28 54.0 /2013 [facility] MCV 89.0 80.0 - 01/28 94.0 [facility] HEMATOLOGY MCH 29.3 27.0 - 01/28 31.0 [facility] HEMATOLOGY MCHC 32.9 32.0 - 01/28 36.0 /2013 [facility] CHEM PANEL Magnesium 2.0 1.8 - 2.4 01/27 l [facility] CHEM PANEL eGFR 35 01/27 <sup>2</sup>R esult [facility] Comment: The eGFR is calculated [...] Calcium Lvl 8.3 8.5 - 10.5 01/27 [facility] CHEM PANEL CO2 29 24 - 32 01/27 [facility] CHEM PANEL AGAP 8.3 10.0 - 01/27 MH . [facility] CHEM PANEL Chloride Lvl 104 95 - 109 01/27 [facility] CHEM PANEL Potassium 4.3 3.5 - 5.1 01/27 Lv [facility] CHEM PANEL Sodium Lvl 137 135 - 145 01/27 [facility] CHEM PANEL BUN 26 7 - 22 01/27 [facility] CHEM PANEL Creatinine 1.8 0.5 - 1.4 01/27 Lvl [facility] CHEM PANEL Glucose Lvl 163 70 - 99 01/27 <sup>5</sup>I nterpretive [facility] Data: Adult reference range values reflect the clinical guidelines
of the [place] [employer]. CHEM PANEL Magnesium 1.5 1.8 - 2.4 01/27 MH Lv [facility] ELECTROLYT AGAP 11.4 10.0 - 01/27 MH ES . [facility] ELECTROLYT eGFR 35 01/27 <sup>3</sup>R MH esult [facility] Comment: The eGFR is calculated [...] Lvl 104 95 - 109 01/27 ES [facility] ELECTROLYT Potassium 4.4 3.5 - 5.1 01/27 ES Lvl [facility] ELECTROLYT Sodium Lvl 139 135 - 145 01/27 ES [facility] ELECTROLYT Creatinine 1.8 0.5 - 1.4 01/27 ES Lvl [facility] ELECTROLYT Calcium Lvl 8.6 8.5 - 10.5 01/27 ES [facility] ELECTROLYT CO2 28 24 - 32 01/27 ES [facility] ELECTROLYT BUN 26 7 - 22 01/27 ES [facility] ELECTROLYT Glucose Lvl 112 70 - 99 01/27 <sup>6</sup>I MH nterpretive [facility] Data: Adult reference range values reflect the clinical guidelines
of the [place] [employer]. HEMATOLOGY MCH 28.8 27.0 - 01/27 MH 31.0 /2013 [facility] HEMATOLOGY MCHC 32.0 32.0 - 01/27 MH 36.0 /2013 [facility] HEMATOLOGY RDW 14.2 11.5 - 01/27 MH 14.5 /2013 [facility] HEMATOLOGY MPV 9.8 7.4 - 10.4 01/27 [facility] HEMATOLOGY Platelet 71 133 - 450 01/27 /2013 [facility] HEMATOLOGY RBC 4.06 4.70 - 01/27 MH 6.10 /2013 [facility] HEMATOLOGY WBC 6.2 3.7 - 10.4 01/27 [facility] HEMATOLOGY Hct 36.5 42.0 - 01/27 MH 54.0 /2013 [facility] HEMATOLOGY MCV 90.0 80.0 - 01/27 MH 94.0 /2013 [facility] HEMATOLOGY Hgb 11.7 14.0 - 01/27 MH 18.0 [facility] HEMATOLOGY Lymphocytes 1.6 1.0 - 5.5 01/27 MH # /2013 [facility] HEMATOLOGY Segs-Bands # 4.2 1.5 - 8.1 01/27 /2013 [facility] HEMATOLOGY Basophils 0.3 0.0 - 1.0 01/27 /2013 [facility] HEMATOLOGY Eosinophils 0.1 0.0 - 0.5 01/27 MH # /2014 [facility] HEMATOLOGY Monocytes # 0.2 0.0 - 0.8 01/27 /2013 [facility] HEMATOLOGY Basophils # 0.0 0.0 - 0.2 01/27 /2013 [facility] HEMATOLOGY Lymphocytes 26.0 20.0 - 01/27 MH 40.0 /2013 [facility] HEMATOLOGY Segs 68.2 45.0 - 01/27 MH 75.0 /2013 [facility] HEMATOLOGY Eosinophils 1.5 0.0 - 4.0 01/27 [facility] HEMATOLOGY Monocytes 4.0 2.0 - 12.0 01/27 [facility] LIPIDS CHD Risk 3.36 4.00 - 01/27 7.30 /2013 [facility] LIPIDS VLDL 23 01/27 [facility] LIPIDS LDL 69 <=99 mg/dL 01/27 (Calculated) /2013 [facility] LIPIDS HDL 39 >=61 mg/dL 01/27 [facility] LIPIDS Chol 131 <=199 01/27 mg/dL [facility] LIPIDS Trig 114 <=149 01/27 mg/dL /2013 [facility] TOXICOLOGY Digoxin Lvl 1.2 0.8 - 2.0 01/27 [facility] URINE AND UA <=1.0 0.1 - 1.0 01/26 STOOL Urobilinogen /2013 [facility] URINE AND UA Sq Epi None Seen 01/26 STOOL [facility] URINE AND UA WBC <1 0 - 5 01/26 STOOL /2013 [facility] URINE AND UA Spec Grav 1.005 <=1.030 01/26 STOOL /2013 [facility] URINE AND UA Turbidity Clear Clear 01/26 STOOL (01/26/14 9:15 AM) /2013 [facility] est URINE AND UA Color Colorless Yellow 01/26 STOOL *NA* /2013 [facility] (01/26/14 9:15 AM) URINE AND UA Glucose Negative Negative 01/26 STOOL mg/dL mg/dL /2013 [facility] URINE AND UA Protein Negative Negative 01/26 STOOL mg/dL mg/dL /2013 [facility] URINE AND UA pH 7.0 5.0 - 8.0 01/26 STOOL /2013 [facility] URINE AND UA Leuk Est Negative Negative 01/26 STOOL (01/26/14 9:15 AM) /2013 [facility] URINE AND UA Blood Negative Negative 01/26 STOOL (01/26/14 9:15 AM) [facility] est URINE AND UA Bili Negative Negative 01/26 STOOL *NA* /2013 [facility] (01/26/14 9:15 AM) URINE AND UA Nitrite Negative Negative 01/26 STOOL (01/26/14 9:15 AM) [facility] est URINE AND UA Ketones Negative Negative 01/26 STOOL mg/dL mg/dL [facility] ANEMIA Folate Lvl 10.9 >=3.0 01/26 STUDY ng/mL /2013 [facility] ANEMIA Vitamin B12 475 254 - 1320 01/26 STUDY Lvl /2013 [facility] CARDIAC BNP 617 <=100 01/26 <sup>7</sup>I ENZYMES pg/mL /2013 nterpretive [facility] Data: Elevated results are in line with increasing severity of
con gestive heart failure. Minor elevations between 100 and 300
may be seen with Myocardial Ischemia, Sodium retaining drugs,
an d compensated/t reated heart failure. CARDIAC Troponin-I 0.28 0.00 - 01/26 ENZYMES 0.40 /2013 [facility] CARDIAC Total CK 88 12 - 191 01/26 ENZYMES [facility] CARDIAC CK MB Index 3.0 0.0 - 2.5 01/26 ENZYMES [facility] CARDIAC CK MB 2.6 0.5 - 3.6 01/26 ENZYMES [facility] CHEM PANEL Phosphorus 2.6 2.5 - 4.5 01/26 [facility] CHEM PANEL Bili 0.5 0.0 - 1.0 01/26 Indirect [facility] CHEM PANEL A/G Ratio 0.9 0.7 - 1.6 01/26 [facility] CHEM PANEL Globulin 4.1 2.0 - 4.0 01/26 [facility] CHEM PANEL Bili Total 0.7 0.2 - 1.3 01/26 [facility] CHEM PANEL Bili Direct 0.2 0.0 - 0.3 01/26 [facility] CHEM PANEL AST 15 0 - 37 01/26 [facility] CHEM PANEL Alk Phos 78 39 - 136 01/26 [facility] CHEM PANEL Total 7.6 6.4 - 8.4 01/26 Protein [facility] CHEM PANEL Albumin Lvl 3.5 3.5 - 5.0 01/26 /2013 [facility] CHEM PANEL ALT 17 0 - 65 01/26 /2013 [facility] HEMATOLOGY Platelet 84 133 - 450 01/26 /2013 [facility] HEMATOLOGY MPV 9.8 7.4 - 10.4 01/26 /2013 [facility] WBC 6.6 3.7 - 10.4 01/26 /2013 [facility] MCH 29.2 27.0 - 01/26 MH 31.0 /2013 [facility] MCHC 32.7 32.0 - 01/26 MH 36.0 /2013 [facility] HEMATOLOGY RDW 14.3 11.5 - 01/26 MH 14.5 /2013 [facility] HEMATOLOGY MCV 89.2 80.0 - 01/26 MH 94.0 /2013 [facility] HEMATOLOGY Hgb 13.2 14.0 - 01/26 MH 18.0 [facility] Hct 40.4 42.0 - 01/26 54.0 /2013 [facility] RBC 4.53 4.70 - 01/26 MH 6.10 [facility] INR 1.23 0.85 - 01/26 <sup>8</sup>I MH 1. nterpretive [facility] Data: RECOMMENDED RANGES FOR PROTIME INR:
2.0-3.0 for most medical and surgical thromboemboli c states.
2.5-3.5 for artificial heart valves and recurrent embolism.<br/ >
INR SHOULD BE USED ONLY FOR PATIENTS ON STABLE ANTICOAGULANT THERAPY. HEMATOLOGY PT 15.6 12.0 - 01/26 MH 14.7 /2013 [facility] HEMATOLOGY Eosinophils 1.6 0.0 - 4.0 01/26 /2013 [facility] HEMATOLOGY Monocytes 4.6 2.0 - 12.0 01/26 /2013 [facility] HEMATOLOGY Segs-Bands # 4.4 1.5 - 8.1 01/26 /2013 [facility] HEMATOLOGY Basophils 0.7 0.0 - 1.0 01/26 /2013 [facility] HEMATOLOGY Eosinophils 0.1 0.0 - 0.5 01/26 MH # /2013 [facility] HEMATOLOGY Lymphocytes 1.8 1.0 - 5.5 01/26 MH # /2014 [facility] Monocytes # 0.3 0.0 - 0.8 01/26 /2013 [facility] Lymphocytes 27.2 20.0 - 01/26 MH 40.0 /2013 [facility] HEMATOLOGY Segs 65.9 45.0 - 01/26 MH 75.0 /2014 [facility] THYROID TSH 2.320 0.360 - 01/26 PANEL 3.740 [facility] Microbiolo Culture: AFB 07/21 Sugar gy w/Smear [facility] Microbiolo Culture: CMV 07/21 Sugar gy ([place] Antigen) Microbiolo Culture: 07/21 Sugar gy Fungal [place] w/Smear Microbiolo Culture: 07/21 Sugar gy Herpes [facility] Simplex Virus Microbiolo Culture: 07/21 Sugar gy Respiratory [place] w/Gram Stain Microbiolo Culture: 07/21 Sugar gy Viral [facility] Complete CHEMISTRY BNP 195 <=100 02/26 HI <sup>8</sup>I nterpretive [facility] Data: Elevated results are in line with increasing severity of
conge stive heart failure. Minor elevations between 100 and 300
may be seen with Myocardial Ischemia, Sodium retaining drugs,
and compensated/t reated heart failure. CHEMISTRY eGFR 84 02/26 NA <sup>2</sup>R esult [facility] Comment: The eGFR is calculated [...] - 5.1 02/26 Normal MH Lvl /2011 [facility] CHEMISTRY Chloride Lvl 102 95 - 109 02/26 Normal MH [facility] CHEMISTRY Sodium Lvl 142 135 - 145 02/26 Normal [facility] CHEMISTRY Creatinine 1.0 0.5 - 1.4 10 Normal MH Lvl /2011 [facility] CHEMISTRY BUN 17 7 - 22 10 Normal MH [facility] CHEMISTRY Glucose Lvl 84 70 - 99 02/26 Normal <sup>5</sup>I MH /2011 nterpretive [facility] Data: Adult reference range values reflect the clinical guidelines
of the [place] [employer]. CHEMISTRY Calcium Lvl 7.9 8.5 - 10.5 10 LOW MH /2011 [facility] CHEMISTRY CO2 28 24 - 32 10 Normal MH /2011 [facility] CHEMISTRY AGAP 15.8 10.0 - 10 Normal MH 20.0 [facility] HEMATOLOGY Monocytes 8.3 2.0 - 12.0 10 Normal MH /2011 [facility] HEMATOLOGY Eosinophils 3.1 0.0 - 4.0 02/26 Normal MH /2011 [facility] HEMATOLOGY Segs 44.7 45.0 - 02/26 LOW MH 75.0 /2011 [facility] HEMATOLOGY Lymphocytes 43.6 20.0 - 02/26 HI MH 40.0 [facility] HEMATOLOGY Plt Morph Normal 02/26 Normal MH (02/27/2012 05:30:00) /2011 [facility] HEMATOLOGY Basophils # 0.0 0.0 - 0.2 10 Normal MH /2011 [facility] HEMATOLOGY Eosinophils 0.1 0.0 - 0.5 02/26 Normal MH # /2011 [facility] HEMATOLOGY Lymphocytes 2.0 1.0 - 5.5 02/26 Normal MH # /2011 [facility] HEMATOLOGY Monocytes # 0.4 0.0 - 0.8 02/26 Normal MH /2011 [facility] HEMATOLOGY Basophils 0.3 0.0 - 1.0 02/26 Normal MH /2011 [facility] HEMATOLOGY Segs-Bands # 2.0 1.5 - 8.1 02/26 Normal MH /2011 [facility] HEMATOLOGY Elliptocyte Slight None Seen 02/26 ABN MH *ABN* /2011 [facility] (02/27/2012 05:30:00) HEMATOLOGY MPV 9.9 7.4 - 10.4 02/26 Normal MH /2011 [facility] HEMATOLOGY MCH 31.3 27.0 - 10 HI MH 31.0 [facility] HEMATOLOGY MCHC 33.7 32.0 - 10 Normal MH 36.0 [facility] HEMATOLOGY RDW 14.8 11.5 - 02/26 HI MH 14.5 [facility] HEMATOLOGY Platelet 34 133 - 450 10/20 LOW MH /2011 [facility] HEMATOLOGY MCV 92.9 80.0 - 02/26 Normal MH 94.0 [facility] HEMATOLOGY WBC 4.6 3.7 - 10.4 02/26 Normal MH /2011 [facility] HEMATOLOGY RBC 3.40 4.70 - 02/26 LOW MH 6. [facility] HEMATOLOGY Hgb 10.6 14.0 - 02/26 LOW MH 18.0 [facility] HEMATOLOGY Hct 31.6 42.0 - 02/26 LOW MH 54.0 [facility] CHEMISTRY BNP 157 <=100 02/25 HI <sup>9</sup>I nterpretive [facility] Data: Elevated results are in line with increasing severity of
conge stive heart failure. Minor elevations between 100 and 300
may be seen with Myocardial Ischemia, Sodium retaining drugs,
and compensated/t reated heart failure. CHEMISTRY Potassium 3.9 3.5 - 5.1 02/25 Normal <sup>1</sup>R MH Lvl [facility] Comment: Specimen Slightly Hemolyzed. CHEMISTRY AGAP 11.9 10.0 - 02/25 Normal MH 20.0 [facility] CHEMISTRY Calcium Lvl 7.7 8.5 - 10.5 02/25 LOW MH [facility] CHEMISTRY Glucose Lvl 111 70 - 99 02/25 HI <sup>6</sup>I nterpretive [facility] Data: Adult reference range values reflect the clinical guidelines
of the [place] [employer]. CHEMISTRY eGFR 68 02/25 NA <sup>3</sup>R [facility] Comment: The eGFR is calculated [...] 26 7 - 22 02/25 HI MH [facility] CHEMISTRY Creatinine 1.2 0.5 - 1.4 02/25 Normal MH Lvl /2011 [facility] CHEMISTRY Sodium Lvl 138 135 - 145 02/25 Normal [facility] CHEMISTRY Chloride Lvl 99 95 - 109 02/25 Normal MH [facility] CHEMISTRY CO2 31 24 - 32 02/25 Normal MH [facility] CHEMISTRY Total CK 149 12 - 191 02/25 Normal [facility] CHEMISTRY Troponin-I 0.11 0.00 - 10 Normal MH 0.40 [facility] CHEMISTRY CK MB 1.5 0.5 - 3.6 02/25 Normal MH [facility] CHEMISTRY CK MB Index 1.0 0.0 - 2.5 02/25 Normal [facility] CHEMISTRY CK MB Index 1.3 0.0 - 2.5 02/25 Normal [facility] CHEMISTRY Globulin 3.2 2.0 - 4.0 02/25 Normal MH [facility] CHEMISTRY A/G Ratio 0.8 0.7 - 1.6 02/25 Normal [facility] CHEMISTRY AGAP 12.5 10.0 - 10 Normal MH 20.0 [facility] CHEMISTRY B/C Ratio 22 6 - 25 02/25 Normal MH [facility] CHEMISTRY Total 5.8 6.4 - 8.4 02/25 LOW MH [facility] CHEMISTRY AST 20 0 - 37 02/25 Normal [facility] CHEMISTRY Calcium Lvl 7.8 8.5 - 10.5 02/25 LOW MH [facility] CHEMISTRY Bili Total 0.6 0.2 - 1.3 02/25 Normal [facility] CHEMISTRY CO2 30 24 - 32 02/25 Normal MH [facility] CHEMISTRY eGFR 48 02/25 NA <sup>4</sup>R esult [facility] Comment: The eGFR is calculated [...] BUN 36 7 - 22 02/25 HI [facility] CHEMISTRY Glucose Lvl 91 70 - 99 02/25 Normal <sup>7</sup>I nterpretive [facility] Data: Adult reference range values reflect the clinical guidelines
of the [place] [employer]. CHEMISTRY Albumin Lvl 2.6 3.5 - 5.0 02/25 LOW [facility] CHEMISTRY Alk Phos 33 39 - 136 02/25 LOW [facility] CHEMISTRY ALT 15 0 - 65 02/25 Normal [facility] CHEMISTRY Potassium 3.5 3.5 - 5.1 02/25 Normal [facility] CHEMISTRY Chloride Lvl 99 95 - 109 02/25 Normal [facility] CHEMISTRY Creatinine 1.6 0.5 - 1.4 02/25 [facility] Lvl [facility] CHEMISTRY Sodium Lvl 138 135 - 145 02/25 Normal [facility] CHEMISTRY Hgb A1C 5.6 02/25 NA <sup>10</sup> Interpretive [facility] Data: HbA1C% eAG(mg/dL) Interpretatio n
[...] LDL 41 0 - 129 02/25 Normal [facility] CHEMISTRY HDL 39 >=35 02/25 Normal [facility] CHEMISTRY Trig 92 0 - 200 02/25 Normal [facility] CHEMISTRY Chol 98 120 - 200 02/25 LOW MH [facility] CHEMISTRY CHD Risk 2.51 4.00 - 02/25 LOW 7. [facility] CHEMISTRY Total CK 128 12 - 191 02/25 Normal [facility] CHEMISTRY Troponin-I 0.10 0.00 - 02/25 Normal 0.40 [facility] CHEMISTRY CK MB 1.7 0.5 - 3.6 02/25 Normal [facility] CHEMISTRY CK MB Index 0.4 0.0 - 2.5 02/25 Normal [facility] CHEMISTRY Total CK 291 12 - 191 02/25 HI MH [facility] CHEMISTRY LDL 13 0 - 129 02/25 Normal [facility] CHEMISTRY HDL 42 >=35 02/25 Normal MH [facility] CHEMISTRY CHD Risk 1.95 4.00 - 02/25 LOW . [facility] CHEMISTRY Chol 82 120 - 200 02/25 LOW MH [facility] CHEMISTRY Trig 137 0 - 200 02/25 Normal [facility] CHEMISTRY Troponin-I 0.09 0.00 - 02/25 Normal 0.40 [facility] CHEMISTRY CK MB 1.1 0.5 - 3.6 02/25 Normal MH [facility] BEDSIDE Gluc POC 177 70 - 99 12/07 HI <sup>2</sup>I [facility] Data: [facility] Reportable Limit: 200 mg/dL. BEDSIDE Gluc POC 174 70 - 99 12/07 HI <sup>3</sup>I [facility] Data: [facility] Reportable Limit: 200 mg/dL. BEDSIDE Comment1 Notify 12/07 [facility] GLUCOSE RN/ /2011 [facility] BEDSIDE Comment1 Notify 12/07 [facility] GLUCOSE RN/ /2012 [facility] BEDSIDE Gluc POC 197 70 - 99 12/07 HI <sup>4</sup>I [facility] Data: [facility] Reportable Limit: 200 mg/dL. BEDSIDE Comment1 Notify 12/06 [facility] GLUCOSE [place]/ /2012 [facility] CHEMISTRY AGAP 14.5 10.0 - 12/06 Normal [facility] 20.0 [facility] CHEMISTRY Sodium Lvl [...] values reflect the clinical guidelines
of the [place] [employer]. CHEMISTRY Calcium Lvl 8.7 8.5 - 10.5 12/06 [facility] CHEMISTRY CO2 31 24 - 32 12/06 Normal [facility] CHEMISTRY Potassium 4.5 3.5 - 5.1 12/06 Normal [place] Lvl [facility] CHEMISTRY Chloride Lvl 103 95 - 109 12/06 Normal [facility] HEMATOLOGY WBC 13.2 3.7 - 10.4 12/06 [facility] HEMATOLOGY Hct 31.9 42.0 - 12/06 LOW [place] 54.0 /2011 [facility] HEMATOLOGY RBC 3.40 4.70 - 12/06 LOW [place] 6.10 [facility] HEMATOLOGY Hgb 10.6 14.0 - 12/06 LOW [place] 18.0 [facility] HEMATOLOGY MCV 93.7 80.0 - 12/06 Normal [place] 94.0 [facility] HEMATOLOGY MCH 31.1 27.0 - 12/06 [facility] [place] 31.0 [facility] HEMATOLOGY Platelet 133 133 - 450 12/06 Normal [facility] HEMATOLOGY MCHC 33.2 32.0 - 12/06 Normal [place] 36.0 /2011 [facility] HEMATOLOGY RDW 17.0 11.5 - 12/06 [facility] [place] 14.5 [facility] HEMATOLOGY MPV [...] values reflect the clinical guidelines
of the [place] [employer]. CHEMISTRY BUN 28 7 - [...] 118 133 - 450 12/05 LOW Medical [facility] HEMATOLOGY MCHC 33.5 32.0 - 12/05 Normal [place] 36.0 [facility] HEMATOLOGY RDW 16.1 11.5 - 12/05 [facility] [place] 14.5 [facility] HEMATOLOGY WBC 11.9 3.7 - 10.4 12/05 [facility] Medical [facility] HEMATOLOGY RBC 3.30 4.70 - 12/05 LOW [place] 6.10 /2011 [facility] HEMATOLOGY Lymphocytes 5.5 20.0 - 12/05 LOW [place] 40.0 /2011 [facility] HEMATOLOGY Monocytes 5.8 2.0 - 12.0 12/05 Normal [facility] HEMATOLOGY Segs 88.6 45.0 - 12/05 [facility] [place] 75.0 [facility] HEMATOLOGY Eosinophils 0.0 0.0 - 0.5 12/05 [place] [facility] HEMATOLOGY Basophils # 0.0 0.0 - 0.2 12/05 Normal [place] [facility] HEMATOLOGY Monocytes # 0.7 0.0 - 0.8 12/05 [place] [facility] HEMATOLOGY Basophils 0.1 0.0 - 1.0 12/05 Normal Medical [facility] HEMATOLOGY Segs-Bands # 10.5 1.5 - 8.1 12/05 [facility] HEMATOLOGY Eosinophils 0.0 0.0 - 4.0 12/05 [place] [facility] HEMATOLOGY Lymphocytes 0.7 1.0 - 5.5 12/05 [place] # /2011 [facility] HEMATOLOGY Platelet 119 133 - 450 12/05 [facility] Center HEMATOLOGY PTT 24.0 22.9 - 12/04 Normal <sup>11[place]sup> [place] 35.8 /2011 Interpretive Medical Data: [facility] Therapeutic Range: 57 - [address] [employer] HEMATOLOGY PT 15.0 12.0 - 12/04 [facility] 14.7 [facility] HEMATOLOGY INR 1.18 0.85 - 12/04 [place] <sup>8</sup>I [place] 1.17 nterpretive Medical Data: Center RECOMMENDED RANGES FOR PROTIME INR:
2.0-3.0 for most medical and surgical thromboemboli c states.
2.5-3.5 for artificial heart valves and recurrent embolism.<br/ >
INR SHOULD BE USED ONLY FOR PATIENTS ON STABLE ANTICOAGULANT THERAPY. BACTERIAL MRSA by PCR Negative 1 12/04 Normal <sup>1</sup>I [facility] - SEROLOGY (12/05/2011 01:58:00) nterpre tive Medical [...] Ion mgdL 5.04 4. - 12/04 Normal [facility] 5. [facility] CHEMISTRY Ca Norm mgdL 5.00 4. - 12/04 Normal [facility] 5. [facility] CHEMISTRY Ca Ion 1.26 1. - 12/04 Normal [facility] 1. [facility] CHEMISTRY Ca Norm 1.25 1. - 12/04 Normal [facility] 1. [facility] CHEMISTRY Phosphorus 4.0 2.5 - 4.5 12/04 Normal [facility] CHEMISTRY Magnesium 1.9 1.8 - 2.4 12/04 Normal [facility] CHEMISTRY Calcium Lvl 9.0 8.5 - 10.5 12/04 [place] [facility] CHEMISTRY CO2 27 24 - 32 12/04 Normal [facility] CHEMISTRY Chloride Lvl 104 95 - 109 12/04 Normal [facility] CHEMISTRY Glucose Lvl 170 70 - 99 12/04 [place] <sup>7</sup>I [place] nterpretive Medical Data: Adult Center reference range values reflect the clinical guidelines
of the [place] [employer]. CHEMISTRY Sodium Lvl 144 135 - 145 12/04 Normal [facility] CHEMISTRY Creatinine 1.4 0.5 - 1.4 12/04 Normal [facility] CHEMISTRY Potassium 4.1 3.5 - 5.1 12/04 Normal [facility] CHEMISTRY BUN 24 7 - 22 12/04 HI [facility] CHEMISTRY AGAP 17.1 10.0 - 12/04 Normal [place] 20.0 Medical Center HEMATOLOGY Eosinophils 0.0 0.0 - 0.5 12/04 [place] [facility] HEMATOLOGY Basophils # 0.0 0.0 - 0.2 12/04 [place] [facility] HEMATOLOGY Monocytes # 0.3 0.0 - 0.8 12/04 [place] [facility] HEMATOLOGY Monocytes 3.1 2.0 - 12.0 12/04 Normal [facility] HEMATOLOGY Lymphocytes 0.7 1.0 - 5.5 12/04 [...] 14.7 12.0 - 12/04 Normal [place] 14.7 [facility] HEMATOLOGY PTT 24.4 22.9 - 12/04 Normal <sup>12[place]sup> [place] 35.8 Interpretive Medical Data: [facility] Therapeutic Range: 57 - 92 [employer] HEMATOLOGY RDW 16.1 11.5 - 12/04 [facility] 14.5 [facility] HEMATOLOGY MCHC 32.8 32.0 - 12/04 Normal [place] 36.0 [facility] HEMATOLOGY WBC 10.3 3.7 - 10.4 12/04 Normal [facility] HEMATOLOGY MCV 94.1 80.0 - 12/04 [facility] [place] 94.0 [facility] HEMATOLOGY Hct 31.7 42.0 - 12/04 [facility] 54.0 [facility] HEMATOLOGY MCH 30.9 27.0 - 12/04 Normal [facility] 31.0 [facility] HEMATOLOGY MPV 7.9 7.4 - 10.4 12/04 Normal [facility] HEMATOLOGY Hgb 10.4 14.0 - 12/04 [facility] 18.0 [facility] HEMATOLOGY RBC 3.37 4.70 - 12/04 [facility] [place] 6.10 [facility] CHEMISTRY POC A Glu 138 70 - 99 12/04 [facility] CHEMISTRY POC A Na 139 135 - 145 12/04 Normal [facility] CHEMISTRY POC A K 3.5 3.5 - 5.1 12/04 Normal [facility] CHEMISTRY POC A Hct 33.0 42.0 - 12/04 [facility] [place] 54.0 [facility] CHEMISTRY POC A O2 Sat 100.0 95.0 - 12/04 [facility] [place] 100.0 [facility] CHEMISTRY POC A LA 1.6 0.5 - 2.2 12/04 Normal [facility] CHEMISTRY POC A Ca Ion 1.17 1.16 - 12/04 [facility] 1.30 Medical Center CHEMISTRY POC A BE 4 -2-2 - 2 12/04 [place] [facility] CHEMISTRY POC A HCO3 29 22 - 26 12/04 [facility] Medical Center CHEMISTRY POC A PCO2 46 35 - 45 12/04 [facility] Medical Center CHEMISTRY POC A PO2 258 80 - 100 12/04 [facility] Medical Center CHEMISTRY POC A Temp 37.0 12/04 NA Medical Center CHEMISTRY POC A Source ART 12/04 NA Medical Center CHEMISTRY POC A pH 7.41 7.35 - 12/04 Normal [place] 7. Medical Center CHEMISTRY POC A Glu 104 70 - 99 12/04 [facility] Medical Center CHEMISTRY POC A LA 1.2 0.5 - 2.2 12/04 Normal Medical Center CHEMISTRY POC A Ca Ion 1.21 1.16 - 12/04 Normal 1.30 Medical Center CHEMISTRY POC A BE 4 -2-2 - 2 12/04 [facility] Medical Center CHEMISTRY POC A Source ART 12/04 NA Medical Center CHEMISTRY POC A HCO3 29 22 - 26 12/04 [facility] Medical Center CHEMISTRY POC A PO2 299 80 - 100 12/04 [facility] Medical Center CHEMISTRY POC A PCO2 [...] A Glu 103 70 - 99 12/04 [facility] Medical Center CHEMISTRY POC A LA 1.3 0.5 - 2.2 12/04 Normal Medical [facility] CHEMISTRY POC A BE 9 -2-2 - 2 12/04 [facility] Medical Center CHEMISTRY POC A O2 Sat 100.0 95.0 - 12/04 Normal [facility] 100.0 Medical [facility] CHEMISTRY POC A Ca Ion 1.22 1.16 - 12/04 Normal [facility] 1.30 Medical Center CHEMISTRY POC A Temp 37.0 12/04 NA [facility] CHEMISTRY POC A HCO3 34 22 - 26 12/04 [facility] CHEMISTRY POC A pH 7.46 7.35 - 12/04 [facility] 7.45 [facility] CHEMISTRY POC A Source ART 12/04 NA [facility] CHEMISTRY POC A PCO2 48 35 - 45 12/04 [facility] CHEMISTRY POC A PO2 267 80 - 100 12/04 [facility] Medical Center HEMATOLOGY PTT 23.5 22.9 - 12/03 Normal [place]sup>13[place]sup[place] 35.8 Interpretive Medical Data: [facility] Therapeutic Range: 57 - 92 [facility] HEMATOLOGY PT 14.0 12.0 - 12/03 Normal [facility] 14.7 Medical Center HEMATOLOGY INR 1.08 0.85 - 12/03 Normal <sup>10[place]sup[place] 1.17 Interpretive Medical Data: Center RECOMMENDED RANGES FOR PROTIME INR:
2.0-3.0 for most medical and surgical thromboemboli c states.
2.5-3.5 for artificial heart valves and recurrent embolism.<br/ >
INR SHOULD BE USED ONLY FOR PATIENTS ON STABLE ANTICOAGULANT THERAPY. HEMATOLOGY Polychrom Slight None Seen 12/03 Normal [facility] (12/04/2011 16:00:00) Mi dical Center HEMATOLOGY Hypochrom Slight None Seen 12/03 Normal [facility] (12/04/2011 16:00:00) Mi dical Center HEMATOLOGY Target Cell Slight None Seen 12/03 [facility] [place] *ABN* Medical (12/04/2011 16:00:00) Ce nter HEMATOLOGY Elliptocyte Slight None Seen 12/03 [facility] [place] *ABN* Medical (12/04/2011 16:00:00) Ce nter HEMATOLOGY Plt Morph Normal 12/03 Normal [place] (12/04/2011 16:00:00) [facility] BLOOD BANK ABO/Rh AB POS 12/03 Unknown [place] RESULTS /2011 [facility] BLOOD BANK Antibody Negative 12/03 Normal [facility] RESULTS Scrn (12/04/2011 00:15:00) [facility] BLOOD BANK RBC product Product available 12/02 Normal [facility] RESULTS (12/03/2011 17:56:00) [facility] CHEMISTRY Phosphorus 2.7 2.5 - 4.5 11/30 Normal Medical Center CHEMISTRY Magnesium 1.7 1.8 - 2.4 11/30 LOW [facility] Lv Medical Center BEDSIDE Gluc POC [...] values reflect the clinical guidelines of the [place] [employer]. CHEMISTRY Calcium Lvl 8.1 8.5 [...] Gluc POC 146 70 - 99 08/27 [place] <sup>3</sup>I [place] GLUCOSE [place] /2011 nterpretive [place] [...] values reflect the clinical guidelines of the [place] [employer]. CHEMISTRY BUN 17 7 - [...] [place] HEMATOLOGY INR 1.79 0.85 - 08/26 [place] <sup>8</sup>[place] 1.17 nterpretive [place] Data: [...] [place] HEMATOLOGY MCH 31.1 27.0 - 08/26 [facility] [place] 31.0 /2011 [place] HEMATOLOGY WBC [...] values reflect the clinical guidelines of the [place] [employer]. CHEMISTRY Creatinine 1.7 0.5 - [...] THERAPY. HEMATOLOGY PT 20.9 12.0 - 08/26 [facility] [place] 14.7 /2011 [place] HEMATOLOGY PTT [...] [place] HEMATOLOGY MCH 31.1 27.0 - 08/26 [facility] [place] 31.0 /2011 [place] HEMATOLOGY MCV [...] - 4.0 08/26 Normal [place] /2011 [facility] HEMATOLOGY Lymphocytes 34.5 20.0 - 08/26 Normal [place] 40.0 /2011 [facility] HEMATOLOGY Segs 58.1 45.0 - 08/26 Normal [place] 75.0 /2011 [facility] HEMATOLOGY RBC Morph Normal 08/26 Normal [place] (08/26/2011 20:25:00) /2011 [place] Gluc POC 105 65 - 110 07/07 Normal <sup>1</sup>I GLUCOSE [place] /2011 nterpretive [facility] TESTING Data: [place] Reportable Limit: 200 mg/dL. BEDSIDE Comment1 Notify 07/07 NA GLUCOSE RN/MD [facility] TESTING CHEMISTRY Hgb A1C 6.2 07/07 NA <sup>9</sup>I nterpretive [facility] Data: HbA1C% eAG(mg/dL) Interpretatio n [...] AGAP 16.6 10.0 - 07/07 Normal 20.0 [facility] CHEMISTRY Calcium Lvl 9.0 8.5 - 10.5 07/07 Normal [facility] CHEMISTRY Creatinine 1.0 0.5 - 1.4 07/07 Normal Lvl [facility] CHEMISTRY BUN 21 7 - 22 07/07 Normal [facility] CHEMISTRY Potassium 4.6 3.5 - 5.1 07/07 Normal <sup>4</sup>R Lvl esult [facility] Comment: Specimen Moderately Hemolyzed. CHEMISTRY Sodium Lvl 139 135 - 145 07/07 Normal [facility] CHEMISTRY Glucose Lvl 100 07/07 NA <sup>5</sup>I nterpretive [facility] Data: Reference Ranges : 0 - 7 days : 41 - 90 mg/dL 7 days - 150 yrs : 70 - 99 mg/dL (fasting), based on the clinical recommendatio ns of the [place] [employer]. CHEMISTRY Chloride Lvl 100 95 - 109 07/07 Normal /2011 [facility] CHEMISTRY CO2 27 24 - 32 07/07 Normal /2011 [facility] HEMATOLOGY MPV 9.4 7.4 - 10.4 07/07 Normal /2011 [facility] HEMATOLOGY Platelet 49 133 - 450 07/07 LOW [facility] /2011 [facility] HEMATOLOGY MCHC 33.1 32.0 - 07/07 Normal [place] 36.0 /2011 [facility] HEMATOLOGY RDW 14.4 11.5 - 07/07 Normal [facility] 14.5 /2011 [facility] HEMATOLOGY Hct 39.9 42.0 - 07/07 LOW MH 54.0 /2011 [facility] HEMATOLOGY WBC 6.3 3.7 - 10.4 07/07 Normal /2011 [facility] HEMATOLOGY RBC 4.26 4.70 - 07/07 LOW MH 6.10 /2011 [facility] HEMATOLOGY Hgb 13.2 14.0 - 07/07 LOW MH 18.0 /2011 [facility] HEMATOLOGY MCV 93.7 80.0 - 07/07 Normal MH 94.0 /2011 [facility] HEMATOLOGY MCH 31.0 27.0 - 07/07 Normal [facility] 31.0 [facility] HEMATOLOGY Large Plt Slight None Seen 07/07 ABN MH *ABN* /2011 [facility] (07/07/2011 07:00:00) HEMATOLOGY Elliptocyte Slight None Seen 07/07 ABN MH *ABN* /2011 [facility] (07/07/2011 07:00:00) HEMATOLOGY Polychrom Slight None Seen 07/07 Normal MH (07/07/2011 07:00:00) /2011 [facility] HEMATOLOGY Basophils # 0.0 0.0 - 0.2 07/07 Normal [facility] HEMATOLOGY Eosinophils 0.2 0.0 - 0.5 07/07 Normal MH # /2011 [facility] HEMATOLOGY Segs-Bands # 3.4 1.5 - 8.1 07/07 Normal /2011 [facility] HEMATOLOGY Basophils 0.4 0.0 - 1.0 07/07 Normal /2011 [facility] HEMATOLOGY Monocytes # 0.4 0.0 - 0.8 07/07 Normal /2011 [facility] HEMATOLOGY Lymphocytes 2.3 1.0 - 5.5 07/07 Normal MH # /2011 [facility] HEMATOLOGY Eosinophils 3.1 0.0 - 4.0 07/07 Normal [facility] HEMATOLOGY Monocytes 5.8 2.0 - 12.0 07/07 Normal [facility] HEMATOLOGY Lymphocytes 36.1 20.0 - 07/07 Normal MH 40.0 /2011 [facility] HEMATOLOGY Segs 54.6 45.0 - 07/07 Normal MH 75.0 /2011 [facility] BEDSIDE Gluc POC 109 65 - 110 07/07 Normal <sup>2</sup>I GLUCOSE [facility] /2011 nterpretive [facility] TESTING Data: [place] Reportable Limit: 200 mg/dL. BEDSIDE Comment1 Notify 07/07 NA GLUCOSE RN/ /2011 [facility] TESTING BEDSIDE Comment1 Notify 07/06 NA GLUCOSE RN/MD /2011 [facility] TESTING BEDSIDE Gluc POC 86 65 - 110 07/06 Normal <sup>3</sup>I GLUCOSE [place] /2011 nterpretive [facility] TESTING Data: [place] Reportable Limit: 200 mg/dL. CHEMISTRY TSH 2.680 0.360 - 07/06 Normal MH 3.740 /2011 [facility] CHEMISTRY CHD Risk 2.64 4.00 - 07/06 LOW MH 7.30 [facility] CHEMISTRY LDL 44 0 - 129 07/06 Normal [facility] CHEMISTRY HDL 39 >=35 07/06 Normal [facility] CHEMISTRY Trig 100 0 - 200 07/06 Normal [facility] CHEMISTRY Chol 103 120 - 200 07/06 LOW /2011 [facility] CHEMISTRY Total 7.3 6.4 - 8.4 07/06 Normal MH [facility] CHEMISTRY Albumin Lvl 3.7 3.5 - 5.0 07/06 Normal [facility] CHEMISTRY Alk Phos 51 39 - 136 07/06 Normal [facility] CHEMISTRY ALT 16 0 - 65 07/06 Normal [facility] CHEMISTRY Globulin 3.6 2.0 - 4.0 07/06 Normal [facility] CHEMISTRY A/G Ratio 1.0 0.7 - 1.6 07/06 Normal [facility] CHEMISTRY AST 12 0 - 37 07/06 Normal [facility] CHEMISTRY Bili Total 0.4 0.2 - 1.3 07/06 Normal [facility] CHEMISTRY Calcium Lvl 8.8 8.5 - 10.5 07/06 Normal [facility] CHEMISTRY AGAP 13.5 10.0 - 07/06 Normal MH 20.0 /2011 [facility] CHEMISTRY B/C Ratio 17 6 - 25 07/06 Normal [facility] CHEMISTRY BUN 20 7 - 22 07/06 Normal [facility] CHEMISTRY Glucose Lvl 149 07/06 NA <sup>6</sup>I nterpretive [facility] Data: Reference Ranges : 0 - 7 days : 41 - 90 mg/dL 7 days - 150 yrs : 70 - 99 mg/dL (fasting), based on the clinical recommendatio ns of the [place] [employer]. CHEMISTRY CO2 28 24 - 32 07/06 Normal [facility] CHEMISTRY Creatinine 1.2 0.5 - 1.4 07/06 Normal MH Lvl /2011 [facility] CHEMISTRY Potassium 3.5 3.5 - 5.1 07/06 Normal MH Lvl /2011 [facility] CHEMISTRY Chloride Lvl 103 95 - 109 07/06 Normal [facility] CHEMISTRY Sodium Lvl 141 135 - 145 07/06 Normal [facility] CHEMISTRY CK MB Index 0.9 0.0 - 2.5 07/06 Normal [facility] CHEMISTRY Troponin-I 0.19 0.00 - 07/06 Normal MH 0.40 [facility] CHEMISTRY CK MB 0.7 0.5 - 3.6 07/06 Normal [facility] CHEMISTRY Total CK 75 12 - 191 07/06 Normal [facility] HEMATOLOGY MCV 93.0 80.0 - 07/06 Normal MH 94.0 /2011 [facility] HEMATOLOGY MCHC 33.8 32.0 - 07/06 Normal MH 36.0 /2011 [facility] HEMATOLOGY MCH 31.4 27.0 - 07/06 HI MH 31.0 /2011 [facility] HEMATOLOGY Hgb 12.4 14.0 - 07/06 LOW MH 18.0 /2011 [facility] HEMATOLOGY Hct 36.7 42.0 - 07/06 LOW MH 54.0 /2011 [facility] HEMATOLOGY MPV 9.7 7.4 - 10.4 07/06 Normal /2011 [facility] HEMATOLOGY RDW 14.1 11.5 - 07/06 Normal MH 14.5 /2011 [facility] HEMATOLOGY Platelet 46 133 - 450 07/06 LOW MH /2011 [facility] HEMATOLOGY WBC 5.9 3.7 - 10.4 07/06 Normal MH [facility] HEMATOLOGY RBC 3.94 4.70 - 07/06 LOW MH 6.10 /2011 [facility] HEMATOLOGY Elliptocyte Slight None Seen 07/06 ABN MH *ABN* /2011 [facility] (07/06/2011 05:45:00) HEMATOLOGY Tear Cell Slight None Seen 07/06 ABN MH *ABN* /2011 [facility] (07/06/2011 05:45:00) HEMATOLOGY Large Plt Slight None Seen 07/06 ABN MH *ABN* /2011 [facility] (07/06/2011 05:45:00) HEMATOLOGY Target Cell Slight None Seen 07/06 ABN MH *ABN* /2011 [facility] (07/06/2011 05:45:00) HEMATOLOGY Polychrom Slight None Seen 07/06 Normal (07/06/2011 05:45:00) /2011 [facility] HEMATOLOGY Metamyelocyt 1.0 0.0 - 1.0 07/06 Normal es /2011 [facility] HEMATOLOGY Myelocytes 1.0 <=0.0 07/06 HI /2011 [facility] HEMATOLOGY Eosinophils 5.0 0.0 - 4.0 07/06 HI /2011 [facility] HEMATOLOGY Atypical 4.0 <=0.0 07/06 [facility] Lymphs /2011 [facility] HEMATOLOGY Segs 48.0 45.0 - 07/06 Normal 75.0 /2011 [facility] HEMATOLOGY Lymphocytes 2.5 1.0 - 5.5 07/06 Normal # /2011 [facility] HEMATOLOGY Eosinophils 0.3 0.0 - 0.5 07/06 Normal # /2011 [facility] HEMATOLOGY Monocytes # 0.1 0.0 - 0.8 07/06 Normal [facility] HEMATOLOGY Bands 0.0 0.0 - 11.0 07/06 Normal /2011 [facility] HEMATOLOGY Lymphocytes 39.0 20.0 - 07/06 Normal 40.0 [facility] HEMATOLOGY Monocytes 2.0 2.0 - 12.0 07/06 Normal [facility] HEMATOLOGY Segs-Bands # 2.8 1.5 - 8.1 07/06 Normal [facility] CHEMISTRY BNP 125 <=100 07/06 [place] <sup>8</sup>I nterpretive [facility] Data: Elevated results are in line with increasing severity of congestive heart failure. Minor elevations between 100 and 300 may be seen with Myocardial Ischemia, Sodium retaining drugs, and compensated/t reated heart failure. CHEMISTRY CK MB 0.5 0.5 - 3.6 07/06 Normal [facility] CHEMISTRY Troponin-I 0.18 0.00 - 07/06 Normal 0.40 [facility] CHEMISTRY Total CK 79 12 - 191 07/06 Normal [facility] CHEMISTRY A/G Ratio 0.8 0.7 - 1.6 07/06 Normal [facility] CHEMISTRY Globulin 4.4 2.0 - 4.0 07/06 HI [facility] CHEMISTRY Bili Total 0.4 0.2 - 1.3 07/06 Normal [facility] CHEMISTRY AST 14 0 - 37 02/27 Normal [facility] CHEMISTRY AGAP 8.8 10.0 - 07/06 LOW MH 20.0 /2011 [facility] CHEMISTRY B/C Ratio 14 6 - 25 07/06 Normal [facility] CHEMISTRY CO2 33 24 - 32 07/06 HI [facility] CHEMISTRY Creatinine 1.4 0.5 - 1.4 07/06 Normal Lvl [facility] CHEMISTRY Sodium Lvl 139 135 - 145 07/06 Normal [facility] CHEMISTRY Potassium 3.8 3.5 - 5.1 07/06 Normal Lvl [facility] CHEMISTRY Chloride Lvl 101 95 - 109 07/06 Normal [facility] CHEMISTRY ALT 18 0 - 65 07/06 Normal [facility] CHEMISTRY Alk Phos 54 39 - 136 07/06 Normal [facility] CHEMISTRY Calcium Lvl 8.9 8.5 - 10.5 07/06 Normal [facility] CHEMISTRY Total 8.1 6.4 - 8.4 07/06 Normal Protein [facility] CHEMISTRY Albumin Lvl 3.7 3.5 - 5.0 07/06 Normal [facility] CHEMISTRY BUN 20 7 - 22 07/06 Normal [facility] CHEMISTRY Glucose Lvl 107 07/06 NA <sup>7</sup>I nterpretive [facility] Data: Reference Ranges : 0 - 7 days : 41 - 90 mg/dL 7 days - 150 yrs : 70 - 99 mg/dL (fasting), based on the clinical recommendatio ns of the [place] [employer]. CHEMISTRY CK MB Index 0.6 0.0 - 2.5 07/06 Normal [facility] HEMATOLOGY PTT 27.8 22.9 - 07/06 Normal <sup>11</sup> MH 35.8 /2011 Interpretive [facility] Data: Heparin Therapeutic Range: 57 - 92 Seconds HEMATOLOGY PT 17.7 12.0 - 07/06 HI MH 14.7 [facility] HEMATOLOGY INR 1.46 0.85 - 07/06 [place] <sup>10</sup> 1.17 Interpretive [facility] Data: RECOMMENDED RANGES FOR PROTIME INR: 2.0-3.0 for most medical and surgical thromboemboli c states. 2.5-3.5 for artificial heart valves and recurrent embolism. INR SHOULD BE USED ONLY FOR PATIENTS ON STABLE ANTICOAGULANT THERAPY. HEMATOLOGY RBC 4.11 4.70 - 07/06 LOW MH 6.10 /2011 [facility] HEMATOLOGY Platelet 49 133 - 450 07/06 LOW MH /2011 [facility] HEMATOLOGY MPV 9.1 7.4 - 10.4 07/06 Normal MH /2011 [facility] HEMATOLOGY RDW 14.1 11.5 - 07/06 Normal MH 14.5 /2011 [facility] HEMATOLOGY WBC 5.5 3.7 - 10.4 07/06 Normal MH /2011 [facility] HEMATOLOGY Hct 37.2 42.0 - 07/06 LOW MH 54.0 /2011 [facility] HEMATOLOGY MCV 90.5 80.0 - 07/06 Normal MH 94.0 /2011 [facility] HEMATOLOGY MCH 30.8 27.0 - 07/06 Normal MH 31.0 /2011 [facility] HEMATOLOGY MCHC 34.0 32.0 - 07/06 Normal MH 36.0 /2011 [facility] HEMATOLOGY Hgb 12.6 14.0 - 07/06 LOW MH 18.0 /2011 [facility] HEMATOLOGY Segs-Bands # 2.0 1.5 - 8.1 07/06 Normal /2011 [facility] HEMATOLOGY Monocytes # 0.4 0.0 - 0.8 07/06 Normal MH /2011 [facility] HEMATOLOGY Tear Cell Slight None Seen 07/06 ABN MH *ABN* /2011 [facility] (07/05/2011 21:56:00) HEMATOLOGY Eosinophils 0.1 0.0 - 0.5 07/06 Normal MH # /2011 [facility] HEMATOLOGY Segs 36.0 45.0 - 07/06 LOW MH 75.0 /2011 [facility] HEMATOLOGY Basophils # 0.1 0.0 - 0.2 07/06 Normal /2011 [facility] HEMATOLOGY Lymphocytes 3.0 1.0 - 5.5 07/06 Normal MH # /2011 [facility] HEMATOLOGY Lymphocytes 54.0 20.0 - 07/06 HI MH 40.0 /2011 [facility] HEMATOLOGY Bands 0.0 0.0 - 11.0 07/06 Normal MH /2011 [facility] HEMATOLOGY Monocytes 7.0 2.0 - 12.0 07/06 Normal MH /2011 [facility] HEMATOLOGY Eosinophils 2.0 0.0 - 4.0 07/06 Normal MH /2011 [facility] HEMATOLOGY Basophils 1.0 0.0 - 1.0 07/06 Normal /2011 [facility] HEMATOLOGY Atypical 0.0 <=0.0 07/06 Normal MH Lymphs /2011 [facility] HEMATOLOGY NRBC 2 07/06 NA MH /2011 [facility] HEMATOLOGY Plt Morph Normal 07/06 Normal (07/05/2011 21:56:00) /2011 [facility] BEDSIDE Comment1 Notify 05/05 NA GLUCOSE RN/ /2010 [facility] TESTING BEDSIDE Gluc POC 147 65 - 110 05/05 [place] <sup>2</sup>I GLUCOSE [place] /2010 nterpretive [facility] TESTING Data: Upper Reportable Limit: 200 mg/dL. BEDSIDE Gluc POC 114 65 - 110 05/05 [place] <sup>3</sup>I GLUCOSE [facility] /2010 nterpretive [facility] TESTING Data: Upper Reportable Limit: 200 mg/dL. BEDSIDE Comment1 Notify 05/05 NA GLUCOSE RN/ /2010 [facility] TESTING CHEMISTRY Magnesium 2.1 1.8 - 2.4 05/05 Normal Lvl [facility] CHEMISTRY AGAP 10.4 10.0 - 05/05 Normal 20.0 [facility] CHEMISTRY CO2 29 24 - 32 05/05 Normal [facility] CHEMISTRY Calcium Lvl 8.2 8.5 - 10.5 05/05 LOW [facility] CHEMISTRY Sodium Lvl 141 135 - 145 05/05 Normal [facility] CHEMISTRY Chloride Lvl 106 95 - 109 05/05 Normal [facility] CHEMISTRY Potassium 4.4 3.5 - 5.1 05/05 Normal [facility] [facility] CHEMISTRY Creatinine 1.2 0.5 - 1.4 05/05 Normal Lvl [facility] CHEMISTRY Glucose Lvl 86 05/05 NA <sup>5</sup>I nterpretive [facility] Data: Reference Ranges : 0 - 7 days : 41 - 90 mg/dL 7 days - 150 yrs : 70 - 99 mg/dL (fasting), based on the clinical recommendatio ns of the [place] [employer]. CHEMISTRY BUN 25 7 - 22 05/05 HI [facility] CHEMISTRY LDL 89 0 - 129 05/05 Normal [facility] CHEMISTRY HDL 42 >=35 05/05 Normal [facility] CHEMISTRY Chol 154 120 - 200 05/05 Normal [facility] CHEMISTRY Trig 117 0 - 200 05/05 Normal [facility] CHEMISTRY CHD Risk 3.67 4.00 - 05/05 LOW 7.30 /2010 [facility] CHEMISTRY Phosphorus 2.5 2.5 - 4.5 05/05 Normal [facility] HEMATOLOGY PTT 44.8 22.9 - 05/05 HI <sup>14</sup> MH 35.8 /2010 Interpretive [facility] Data: Heparin Therapeutic Range: 57 - 92 Seconds HEMATOLOGY PT 21.1 12.0 - 05/05 HI 14.7 /2010 [facility] HEMATOLOGY INR 1.84 0.85 - 05/05 HI <sup>11</sup> 1.17 Interpretive [facility] Data: RECOMMENDED RANGES FOR PROTIME INR: 2.0-3.0 for most medical and surgical thromboemboli c states. 2.5-3.5 for artificial heart valves and recurrent embolism. INR SHOULD BE USED ONLY FOR PATIENTS ON STABLE ANTICOAGULANT THERAPY. HEMATOLOGY MCH 31.5 27.0 - 05/05 HI MH 31.0 /2010 [facility] HEMATOLOGY MPV 9.7 7.4 - 10.4 05/05 Normal /2010 [facility] HEMATOLOGY MCHC 34.0 32.0 - 05/05 Normal 36.0 [facility] HEMATOLOGY Platelet 48 133 - 450 05/05 LOW MH /2010 [facility] HEMATOLOGY Hgb 12.5 14.0 - 05/05 LOW 18.0 [facility] HEMATOLOGY WBC 4.3 3.7 - 10.4 05/05 Normal [facility] HEMATOLOGY RBC 3.97 4.70 - 05/05 LOW 6.10 [facility] HEMATOLOGY Hct 36.7 42.0 - 05/05 LOW 54.0 [facility] HEMATOLOGY MCV 92.5 80.0 - 05/05 Normal 94.0 [facility] HEMATOLOGY RDW 15.1 11.5 - 05/05 HI 14.5 [facility] HEMATOLOGY Elliptocyte Slight None Seen 05/05 ABN *ABN* /2010 [facility] (05/05/2011 05:00:00) HEMATOLOGY Large Plt Slight None Seen 05/05 ABN *ABN* /2010 [facility] (05/05/2011 05:00:00) HEMATOLOGY Atypical 0.0 <=0.0 05/05 Normal Lymphs /2010 [facility] HEMATOLOGY Basophils 0.0 0.0 - 1.0 05/05 Normal /2010 [facility] HEMATOLOGY Lymphocytes 51.0 20.0 - 05/05 HI 40.0 [facility] HEMATOLOGY Bands 0.0 0.0 - 11.0 05/05 Normal MH /2010 [facility] HEMATOLOGY Segs 42.0 45.0 - 05/05 LOW 75.0 [facility] HEMATOLOGY Eosinophils 0.1 0.0 - 0.5 05/05 Normal MH # /2010 [facility] HEMATOLOGY Monocytes # 0.2 0.0 - 0.8 05/05 Normal [facility] HEMATOLOGY Lymphocytes 2.2 1.0 - 5.5 05/05 Normal # /2010 [facility] HEMATOLOGY Segs-Bands # 1.8 1.5 - 8.1 05/05 Normal /2010 [facility] HEMATOLOGY Eosinophils 2.0 0.0 - 4.0 05/05 Normal [facility] HEMATOLOGY Monocytes 5.0 2.0 - 12.0 05/05 Normal /2010 [facility] BEDSIDE Gluc POC 204 65 - 110 05/05 HI <sup>4</sup>I GLUCOSE Lifscn /2010 nterpretive [facility] TESTING Data: Upper Reportable Limit: 200 mg/dL. BEDSIDE Comment1 Assess 05/05 NA GLUCOSE [facility] TESTING HEMATOLOGY Basophils # 0.0 0.0 - 0.2 05/04 Normal [facility] HEMATOLOGY Eosinophils 0.1 0.0 - 0.5 05/04 Normal [facility] HEMATOLOGY Monocytes 6.1 2.0 - 12.0 05/04 Normal [facility] HEMATOLOGY Segs 33.5 45.0 - 05/04 LOW MH 75.0 [facility] HEMATOLOGY Lymphocytes 56.9 20.0 - 05/04 HI 40.0 [facility] HEMATOLOGY Segs-Bands # 1.5 1.5 - 8.1 05/04 Normal [facility] HEMATOLOGY Lymphocytes 2.6 1.0 - 5.5 05/04 Normal [facility] HEMATOLOGY Monocytes # 0.3 0.0 - 0.8 05/04 Normal [facility] HEMATOLOGY Eosinophils 2.9 0.0 - 4.0 05/04 Normal [facility] HEMATOLOGY Basophils 0.6 0.0 - 1.0 05/04 Normal [facility] HEMATOLOGY PTT 43.4 22.9 - 05/04 HI <sup>15</sup> 35.8 Interpretive [facility] Data: Heparin Therapeutic Range: 57 - 92 Seconds HEMATOLOGY PT 18.2 12.0 - 05/04 HI MH 14.7 /2010 [facility] HEMATOLOGY INR 1.52 0.85 - 05/04 HI <sup>12</sup> 1.17 /2010 Interpretive [facility] Data: RECOMMENDED RANGES FOR PROTIME INR: 2.0-3.0 for most medical and surgical thromboemboli c states. 2.5-3.5 for artificial heart valves and recurrent embolism. INR SHOULD BE USED ONLY FOR PATIENTS ON STABLE ANTICOAGULANT THERAPY. HEMATOLOGY MPV 9.8 7.4 - 10.4 05/04 Normal MH /2010 [facility] HEMATOLOGY MCHC 34.2 32.0 - 05/04 Normal 36.0 /2010 [facility] HEMATOLOGY RDW 15.0 11.5 - 05/04 HI MH 14. [facility] HEMATOLOGY Platelet 51 133 - 450 05/04 LOW MH /2010 [facility] HEMATOLOGY RBC 4.06 4.70 - 05/04 LOW MH 6.10 [facility] HEMATOLOGY Hgb 12.6 14.0 - 05/04 LOW MH 18.0 /2010 [facility] HEMATOLOGY MCH 31.2 27.0 - 05/04 HI MH 31.0 [facility] HEMATOLOGY WBC 4.5 3.7 - 10.4 05/04 Normal MH /2010 [facility] HEMATOLOGY Hct 37.0 42.0 - 05/04 LOW 54.0 [facility] HEMATOLOGY MCV 91.1 80.0 - 05/04 Normal 94.0 [facility] HEMATOLOGY INR 1.41 0.85 - 05/03 HI <sup>13</sup> 1.17 /2010 Interpretive [facility] Data: RECOMMENDED RANGES FOR PROTIME INR: 2.0-3.0 for most medical and surgical thromboemboli c states. 2.5-3.5 for artificial heart valves and recurrent embolism. INR SHOULD BE USED ONLY FOR PATIENTS ON STABLE ANTICOAGULANT THERAPY. HEMATOLOGY PT 17.2 12.0 - 05/03 HI MH 14. [facility] HEMATOLOGY PTT 37.6 22.9 - 05/03 HI <sup>16</sup> 35.8 /2010 Interpretive [facility] Data: Heparin Therapeutic Range: 57 - 92 Seconds HEMATOLOGY MPV 10.0 7.4 - 10.4 05/03 Normal MH /2010 [facility] HEMATOLOGY Platelet 66 133 - 450 05/03 LOW MH /2010 [facility] HEMATOLOGY MCV 91.6 80.0 - 05/03 Normal 94.0 /2010 [facility] HEMATOLOGY MCH 31.3 27.0 - 05/03 HI MH 31.0 [facility] HEMATOLOGY MCHC 34.2 32.0 - 05/03 Normal MH 36.0 /2010 [facility] HEMATOLOGY RDW 15.4 11.5 - 05/03 HI 14. [facility] HEMATOLOGY Hct 38.7 42.0 - 05/03 LOW 54.0 [facility] HEMATOLOGY WBC 4.8 3.7 - 10.4 05/03 Normal MH /2011 [facility] HEMATOLOGY RBC 4.23 4.70 - 05/03 LOW MH 6. [facility] HEMATOLOGY Hgb 13.2 14.0 - 05/03 LOW MH 18.0 [facility] HEMATOLOGY Elliptocyte Slight None Seen 05/03 ABN MH *ABN* [facility] (05/03/2011 04:40:00) HEMATOLOGY Basophils 0.0 0.0 - 1.0 05/03 Normal [facility] HEMATOLOGY Large Plt Slight None Seen 05/03 ABN MH *ABN* /2010 [facility] (05/03/2011 04:40:00) HEMATOLOGY Atypical 2.0 <=0.0 05/03 HI MH Lymphs [facility] HEMATOLOGY Eosinophils 6.0 0.0 - 4.0 05/03 HI MH [facility] HEMATOLOGY Monocytes 4.0 2.0 - 12.0 05/03 Normal [facility] HEMATOLOGY Bands 1.0 0.0 - 11.0 05/03 Normal [facility] HEMATOLOGY Eosinophils 0.3 0.0 - 0.5 05/03 Normal MH # [facility] HEMATOLOGY Lymphocytes 54.0 20.0 - 05/03 HI MH 40.0 [facility] HEMATOLOGY Segs 33.0 45.0 - 05/03 LOW MH 75.0 [facility] HEMATOLOGY Monocytes # 0.2 0.0 - 0.8 05/03 Normal MH [facility] HEMATOLOGY Lymphocytes 2.7 1.0 - 5.5 05/03 Normal MH [facility] HEMATOLOGY Segs-Bands # 1.6 1.5 - 8.1 05/03 Normal [facility] HEMATOLOGY Monocytes # 0.2 0.0 - 0.8 05/03 Normal MH [facility] HEMATOLOGY Eosinophils 0.2 0.0 - 0.5 05/03 Normal MH # [facility] HEMATOLOGY Basophils # 0.0 0.0 - 0.2 05/03 Normal MH [facility] HEMATOLOGY Monocytes 5.1 2.0 - 12.0 05/03 Normal [facility] HEMATOLOGY Eosinophils 3.4 0.0 - 4.0 05/03 Normal MH [facility] HEMATOLOGY Basophils 0.4 0.0 - 1.0 05/03 Normal [facility] HEMATOLOGY Segs-Bands # 1.7 1.5 - 8.1 05/03 Normal [facility] HEMATOLOGY Lymphocytes 2.6 1.0 - 5.5 05/03 Normal MH # /2010 [facility] HEMATOLOGY Segs 36.4 45.0 - 05/03 LOW MH 75.0 [facility] HEMATOLOGY Lymphocytes 54.7 20.0 - 05/03 HI MH 40.0 [facility] HEMATOLOGY Large Plt Slight None Seen 05/02 ABN MH *ABN* /2010 [facility] (05/02/2011 04:15:00) HEMATOLOGY Target Cell Slight None Seen 05/02 ABN MH *ABN* /2010 [facility] (05/02/2011 04:15:00) HEMATOLOGY Basophils # 0.0 0.0 - 0.2 05/02 Normal MH /2010 [facility] HEMATOLOGY Polychrom Slight None Seen 05/02 Normal (05/02/2011 04:15:00) [facility] BEDSIDE Comment2 Assess 05/02 NA GLUCOSE Patient /2010 [facility] TESTING HEMATOLOGY Smudge Slight None Seen 05/01 Normal (05/01/2011 04:30:00) [facility] HEMATOLOGY Elliptocyte Slight None Seen 05/01 ABN MH *ABN* /2010 [facility] (05/01/2011 04:30:00) HEMATOLOGY Polychrom Slight None Seen 05/01 Normal (05/01/2011 04:30:00) [facility] HEMATOLOGY Target Cell Slight None Seen 05/01 ABN MH *ABN* /2010 [facility] (05/01/2011 04:30:00) HEMATOLOGY Atypical 5.0 <=0.0 05/01 HI Lymphs [facility] HEMATOLOGY Bands 0.0 0.0 - 11.0 05/01 Normal MH /2010 [facility] BEDSIDE Comment2 Assess 05/01 NA GLUCOSE Patient /2010 [facility] TESTING IMMUNOLOGY 24 UPE Tot 5 04/30 NA Prot [facility] IMMUNOLOGY 24Hr UPE 125 04/30 NA MH /2010 [facility] IMMUNOLOGY 24Hr UPE Int Normal 04/30 NA urine [facility] protein electropho resis with minimal proteinuri a. No monoclonal bands are identified ; however, evaluation is limited by the small amount of protein and the resulting lack of discernibl e bands on the electropho retic gel. Interpret ation performed at [facility]. IMMUNOLOGY 24 UPE Tot 2500 04/30 NA Vol /2010 [facility] HEMATOLOGY RBC Morph Normal 04/30 Normal (04/30/2011 05:00:00) [facility] HEMATOLOGY Lup Interp Negative 04/30 NA for lupus [facility] anticoagul ant by DRVVT and hexagonal phospholip id neutraliza tion. If there is strong clinical suspicion of lupus anticoagul ant, additional testing, to include anticardio lipin antibody assays, is recommende d. Interpreta tion performed at [facility]. HEMATOLOGY dRVVT 36.9 <=42.9 04/30 Normal MH [facility] HEMATOLOGY Hex Phos N Negative Negative 04/30 Normal (04/30/2011 05:00:00) So [facility] IMMUNOLOGY JASPREET Ser A 04/30 NA Pattern monoclonal [place] band is noted in the gamma region of the IgG and lambda lanes. Faint diffusely immunoreac tive bands are also noted in the IgG, IgA, IgM, kappa, and lambda lanes. Interpreta tion performed at [facility]. IMMUNOLOGY JASPREET Ser Serum 04/30 NA Interp immunofixa /2010 [facility] tion electropho resis reveals a monoclonal protein of IgG lambda specificit y. Normal polyclonal immunoglob ulins are present in decreased amounts. Interpreta tion performed at [facility]. IMMUNOLOGY Tot Prot 7.0 6.4 - 8.4 04/30 Normal (SPE) [facility] IMMUNOLOGY SPE Interp Total 04/30 [facility] protein /2010 [facility] and albumin are within reference range. A distinct monoclonal band comprising 1.31 g/dl of protein is present in the gamma globulin region. There is also an indication of restricted heterogene ity in immunoglob ulin synthesis. Serum and urine immunofixa tion studies are recommende d for further evaluation . Interpreta tion performed at [facility]. IMMUNOLOGY Gamma Glob 1.65 0.71 - 04/30 HI 1.57 /2010 [facility] IMMUNOLOGY Alpha 2 Glob 0.78 0.45 - 04/30 Normal 1.00 [facility] IMMUNOLOGY Beta Glob 0.69 0.50 - 04/30 Normal 1.15 /2010 [facility] IMMUNOLOGY Albumin % 51.1 55.8 - 04/30 LOW MH 66.1 /2010 [facility] IMMUNOLOGY Alpha 1 % 4.2 2.8 - 4.9 04/30 Normal MH /2010 [facility] IMMUNOLOGY Alpha 2 % 11.2 7.0 - 11.9 04/30 Normal MH [facility] IMMUNOLOGY Beta % 9.9 7.8 - 13.7 04/30 Normal MH [facility] IMMUNOLOGY Gamma % 23.6 11.1 - 04/30 HI MH 18.7 /2010 [facility] Albumin 3.58 3.57 - 04/30 Normal MH (SPE) 5.55 /2010 [facility] Alpha 1 Glob 0.29 0.18 - 04/30 Normal MH 0.41 /2010 [facility] Beta2-Glycop <9 < OR = 20 04/30 NA <sup>22</sup> rotein IgA /2010 Result [facility] Comment: Patients who are found [...] [place] 2006: 4; 295. Test Performed at: [facility] [address] [place] [id number] Mario Bowen MD, PhD IMMUNOLOGY Beta2-Glycop <9 < OR = 20 04/30 NA <sup>20</sup> [facility] IgM /2010 Result [facility] Comment: Patients who are found to be anticardiolip in antibody positive may have negative studies for antibodies to Beta 2 GPI. Positive anticardiolip in antibody tests together with negative testing for antibodies to Beta 2 GPI may be seen in a variety of different clinical settings including convalescence from recent infections (viral or bacterial). Test Performed at: [facility] [address] [place] [phone] Mario Bowen MD, PhD IMMUNOLOGY Beta2-Glycop <9 < OR = 20 04/30 NA <sup>21</sup> [facility] IgG /2010 Result [facility] Comment: Patients who are found to be anticardiolip in antibody positive may have negative studies for antibodies to Beta 2 GPI. Positive anticardiolip in antibody tests together with negative testing for antibodies to Beta 2 GPI may be seen in a variety of different clinical settings including convalescence from recent infections (viral or bacterial). Test Performed at: [email or web address] [address] [place] [phone] Mario Bowen MD, PhD IMMUNOLOGY Cardiolipin 2 04/30 NA <sup>17</sup> IgA Interpretive [facility] Data: Reference Ranges for IgA: 0-11 APL Negative 12-20 APL Inconclusive 21-80 APL Low-Med Positive > 80 APL Strong Positive IMMUNOLOGY Cardiolipin 4.3 04/30 NA <sup>19</sup> IgM Interpretive [facility] Data: Reference Ranges for IgM: 0-12.4 MPL Negative 12.5-20 MPL Inconclusive 21-80 MPL Low-Med Positive > 80 MPL Strong Positive IMMUNOLOGY Cardiolipin 6 04/30 NA <sup>18</sup> [facility]: Reference Ranges for Ig-14 GPL Negative 15-20 GPL Inconclusive 21-80 GPL Low-Med Positive > 80 GPL Strong Positive BEDSIDE Comment2 Notify 04/29 [facility] GLUCOSE RN/ [facility] TESTING BEDSIDE Comment3 Assess 04/29 [facility] GLUCOSE [facility] TESTING CHEMISTRY Calcium Lvl 8.3 8.5 - 10.5 04/29 LOW [facility] CHEMISTRY Potassium 4.5 3.5 - 5.1 04/29 Normal [facility] CHEMISTRY Sodium Lvl 138 135 - 145 04/29 Normal [facility] CHEMISTRY CO2 31 24 - 32 04/29 Normal [facility] CHEMISTRY Chloride Lvl 100 95 - 109 04/29 Normal [facility] CHEMISTRY BUN 22 7 - 22 04/29 Normal [facility] CHEMISTRY Creatinine 1.4 0.5 - 1.4 04/29 Normal Lv [facility] CHEMISTRY Glucose Lvl 101 04/29 NA <sup>6</sup>I nterpretive [facility] Data: Reference Ranges : 0 - 7 days : 41 - 90 mg/dL 7 days - 150 yrs : 70 - 99 mg/dL (fasting), based on the clinical recommendatio ns of the [place] [employer]. CHEMISTRY AGAP 11.5 10.0 - 04/29 Normal . [facility] CHEMISTRY Hgb A1C 7.2 04/29 NA <sup>10</sup> Interpretive [facility] Data: HbA1C% eAG(mg/dL) Interpretatio n [...] TSH 3.540 0.360 - 04/29 Normal 3.740 [facility] HEMATOLOGY Polychrom Slight None Seen 04/29 Normal (04/29/2011 05:20:00) [facility] BACTERIAL MRSA by PCR Negative 1 04/28 Normal <sup>1</sup>I M H - SEROLOGY (04/28/2011 10:58:00) nterpre tive [facility] Data: INTERPRETATIO N: Negative..... .No [...] 6.4 - 8.4 04/28 Normal MH Protein [facility] CHEMISTRY ALT 15 0 - 65 04/28 Normal MH [facility] CHEMISTRY Albumin Lvl 3.2 3.5 - 5.0 04/28 LOW [facility] CHEMISTRY Alk Phos 46 39 - 136 04/28 Normal [facility] CHEMISTRY Bili Direct 0.2 0.0 - 0.3 04/28 Normal [facility] CHEMISTRY AST 17 0 - 37 04/28 Normal MH [facility] CHEMISTRY Bili Total 0.8 0.2 - 1.3 04/28 Normal MH [facility] CHEMISTRY Globulin 3.5 2.0 - 4.0 04/28 Normal MH [facility] CHEMISTRY Bili 0.6 0.0 - 1.0 04/28 Normal [facility] CHEMISTRY A/G Ratio 0.9 0.7 - 1.6 04/28 Normal [facility] CHEMISTRY CO2 30 24 - 32 04/28 Normal [facility] CHEMISTRY Calcium Lvl 8.0 8.5 - 10.5 04/28 LOW [facility] CHEMISTRY Chloride Lvl 99 95 - 109 04/28 Normal [facility] CHEMISTRY Potassium 3.6 3.5 - 5.1 04/28 Normal MH Lvl [facility] CHEMISTRY BUN 26 7 - 22 04/28 HI MH [facility] CHEMISTRY Glucose Lvl 139 04/28 NA <sup>7</sup>I nterpretive [facility] Data: Reference Ranges : 0 - 7 days : 41 - 90 mg/dL 7 days - 150 yrs : 70 - 99 mg/dL (fasting), based on the clinical recommendatio ns of the [place] [employer]. CHEMISTRY Sodium Lvl 137 135 - 145 04/28 Normal MH /2011 [facility] CHEMISTRY Creatinine 1.4 0.5 - 1.4 04/28 Normal Lvl [facility] CHEMISTRY AGAP 11.6 10.0 - 04/28 Normal MH 20.0 [facility] HEMATOLOGY Pat Od Value 0.084 04/28 NA MH [facility] HEMATOLOGY Pos CO Value 0.376 04/28 NA [facility] HEMATOLOGY Heprn Negative Negative 04/28 Normal Ab(HASEEB) (04/28/2011 10:50:00) [facility] HEMATOLOGY Plt Morph Normal 04/28 Normal MH (04/28/2011 10:50:00) So [facility] BLOOD BANK Platelet Product available 04/28 Normal RESULTS product (04/28/2011 04:52:00) So [facility] BLOOD BANK Antibody Negative 04/28 Normal RESULTS Scrn (04/28/2011 04:52:00) So [facility] BLOOD BANK ABO/Rh AB POS 04/28 Unknown MH RESULTS [facility] CHEMISTRY Troponin-I 0.70 0.00 - 04/28 CRIT <sup>8</sup>R MH 0.40 esult [facility] Comment: Critical Result(s) called to [place] at 04/28/2011 3:51 by BVo. Read back OK. CHEMISTRY CK MB 4.9 0.5 - 3.6 04/28 HI [facility] CHEMISTRY Total CK 133 12 - 191 04/28 Normal [facility] CHEMISTRY BNP 349 <=100 04/28 HI <sup>9</sup>I nterpretive [facility] Data: Elevated results are in line with increasing severity of congestive heart failure. Minor elevations between 100 and 300 may be seen with Myocardial Ischemia, Sodium retaining drugs, and compensated/t reated heart failure. CHEMISTRY CK MB Index 3.7 0.0 - 2.5 04/28 HI [facility] CHEMISTRY HIPOLITO 24.0 8 - [...] on the clinical recommendatio ns of the [place] [employer]. CHEMISTRY A/G Ratio 0.7 0.7 [...] on the clinical recommendatio ns of the [place] [employer]. CHEMISTRY Potassium 3.6 3.5 - [...] - 02/15 Normal MH Sugar 40.0 /2010 [facility] HEMATOLOGY Segs 71.1 45.0 - 02/15 Normal MH Sugar 75.0 /2010 [facility] HEMATOLOGY WBC 10.0 3.7 - 10.4 02/15 Normal MH Sugar /2010 [facility] HEMATOLOGY MCV 91.5 80.0 - 02/15 Normal MH Sugar 94.0 /2010 [facility] HEMATOLOGY Hct 38.9 42.0 - 02/15 LOW MH Sugar 54.0 /2010 [facility] HEMATOLOGY RBC 4.25 4.70 - 02/15 LOW [place] 6.10 [facility] HEMATOLOGY Hgb 12.9 14.0 - 02/15 LOW [place] 18.0 /2010 [facility] HEMATOLOGY MCHC 33.2 32.0 - 02/15 Normal Sugar 36.0 /2010 [facility] HEMATOLOGY MCH 30.4 27.0 - 02/15 Normal MH Sugar 31.0 /2010 [facility] HEMATOLOGY MPV 10.0 7.4 - 10.4 02/15 Normal Sugar /2010 [facility] HEMATOLOGY RDW 14.9 11.5 - 02/15 HI MH Sugar 14.5 /2010 [facility] HEMATOLOGY Platelet 104.0 133 - 450 02/15 LOW MH Sugar [facility] VIRAL - Influ B Negative 5 >Negative 02/15 Normal <sup>5</sup>I Blake gar SEROLOGY (02/15/2011 00:20:00) ?? nterpr etive [facility] Data: Due to the low sensitivity of [...] 02/15 Normal [facility] SEROLOGY (02/15/2011 00:20:00) ?? [facility] CHEMISTRY Total CK 37.0 12 - 191 02/15 Normal Sugar [facility] CHEMISTRY Troponin-I 0.15 0.00 - 02/15 Normal [...] on the clinical recommendatio ns of the [place] [employer]. CHEMISTRY BNP 304.0 <<=100 02/14 [...] 02/14 Normal <sup>11</sup> Suga r 1.17 Interpretive [facility] Data: RECOMMENDED RANGES FOR PROTIME INR: 2.0-3.0 [...] Normal 02/14 Normal [place] (02/14/2011 18:50:00) ?? [facility] HEMATOLOGY RBC Morph Normal 02/14 Normal [place] (02/14/2011 18:50:00) ?? [facility] Pathology Reports No Data Provided for This Section Diagnostic Reports Report Value Date Source Bone Marrow Bio/Aspr VR Bone Marrow Bio/Aspr VR 03/28/2018 8 :12 AM AREA MECHANIC 03/28/2018 [facility] Ordering Physician: Navin Thrasher MD [...] marrow was aspirated and analyzed by a motor vehicle technician to confirm appropriat e access followed [...] the procedure by a dedicate d nurse. SENIOR WINDOWS ENGINEER: Dr. Burrell FLUOROSCOPY TIME: 0.5 mins AIR KERMA DOSE: 31 mGy IMPRESSION: Successful fluoroscopically guided bone marrow a nd bone biopsies. SL: [id number] Ext Lower Venous Doppler Patient Name: JAVIER BUNCH 03/26/2018 [facility] Bilat US : 1935. Age: 82 years. Gender: Male. MR: [id number]. Location: [facility]. Provider: Arnoldo Melo MD. EXAM: Ext Lower Venous Doppler Bilat [...] veins. Right popliteal fossa Hewitt's cyst. SL: [id number] Retroperitoneal Complete Clinical Indication: Chronic renal insufficiency. 04/10/2017 [facility] Comparison: CT performed on 09/20/2012 TECHNIQUE: Multiple [...] stone. 2. Otherwise unremarkable renal U/S SL: [id number] Brain wo contrast CT Clinical Indication: syncope , DLP: 767.06mGycm - syncope, DLP: 767.06mGycm. 81-year-old male with syncope. [facility] Comparison: None TECHNIQUE: CT images were ob [...] mass, acute hemorrhage or subacute stroke. SL: [id number] Abdomen complete US Patient Name: JAVIER BUNCH 03/17/2017 [facility] : 1935; Age: 81 years y/o Male MR: [id number] Study: Abdomen complete US 03/17/2017 10:32 AM [...] wall thickening appreciated. Severe hepatic steatosis. SL: [id number] Carotid artery Doppler Study: Carotid artery Doppler bilat US [facility] bilat US Clinical Indication: Syncope [...] Complete Clinical Indication: aleksandra/ckd - aleksandra/ckd; 03/16/2017 [facility] Comparison: 03/11/2013. TECHNIQUE: Multiple longitudinal and tr [...] 1view DX Clinical history: Chest pain. 01/17/2016 [employer] : 1935. Technique: Portable AP chest x-ray. Comparison: 04/23/2015. Heart size: Top normal limits. No pulmon neda edema. Left transvenous pacemaker. Lungs: No acute consolidation. Pleura: No pleural effusion. Mediastinum and abbi: Unremarkable. Skeletal: Unremarkable. Impression: 1. No acute finding in the chest. Chest 1view DX ADDENDUM: 04/23/2015 [facility] The impression should read: Dual [...] 2 views DX CHEST, TWO VIEWS 04/21/2015 [facility] HISTORY: Chest pain. COMPARISON: 07/06/2014 FINDINGS: The lungs are clear. No pleural effusion. No pn eumothorax. Heart size normal. No acute osseous abnormality. SL: 14 Hip 2 views DX 02/02/2015 [facility] REASON FOR EXAM: Pain from [...] 2 views DX CLINICAL HISTORY: Coughing. 07/06/2014 [employer] : 1935. TECHNIQUE: PA and lateral views of the chest com pared to April 02, 2014. Heart size is normal. Perihi lar bronchovascular prominence appears chronic. No new consolidation or effusion. No pulmonary edema. IMPRESSION: 1. No acute changes in the chest. Chest 1view NAME: JAVIER BUNCH 04/02/2014 [facility] : 1935 SEX: M 12 Ordering [...] Date Comments Source Respitory Rate 20 12/01/2018 [facility] Systolic (mm Hg) 94 12/01/2018 [facility] t Diastolic (mm Hg) 58 12/01/2018 [facility] Temperature Oral (F) 98.5 F 12/01/[address] [facility] Heart Rate 86 12/01/2018 [facility] Systolic (mm Hg) 107 12/01/2018 [facility] t Diastolic (mm Hg) 66 12/01/2018 [facility] Heart Rate 76 12/01/2018 [facility] Respitory Rate 20 12/01/2018 [facility] Temperature Oral (F) 98.1 F 12/01/2018 [facility] Systolic (mm Hg) 112 12/01/2018 [facility] Diastolic (mm Hg) 63 12/01/2018 [facility] st Respitory Rate 20 12/01/2018 [facility] Heart Rate 41 12/01/2018 [facility] Height 193.04 cm 12/01/2018 [facility] BMI Calculated 39.16 11/30/2018 [facility] Weight 145.909 11/30/2018 [facility] Height 193.04 cm 11/30/2018 [facility] Systolic (mm Hg) 129 03/29/2018 [facility] t Diastolic (mm Hg) 71 03/29/2018 [facility] st Respitory Rate 18 03/29/2018 [facility] Heart Rate 69 03/29/2018 [facility] Temperature Oral (F) 97.5 F 03/29/2018 [facility] Heart Rate 82 03/29/2018 [facility] Respitory Rate 18 03/29/2018 [facility] Systolic (mm Hg) 156 03/29/2018 [facility] Diastolic (mm Hg) 85 03/29/2018 [facility] st Temperature Oral (F) 98.4 F 03/29/2018 [facility] Weight 138.095 03/29/2018 [facility] Systolic (mm Hg) 135 03/29/2018 [place] Diastolic (mm Hg) 76 03/29/2018 [facility] st Heart Rate 78 03/29/2018 [facility] Temperature Oral (F) 98.3 F 03/29/2018 [facility] Respitory Rate 20 03/29/2018 [facility] BMI Calculated 36.96 03/25/2018 [facility] Weight 137.727 03/25/2018 [facility] Height 193.04 cm 03/25/2018 [facility] Temperature Oral (F) 97.9 F 04/11/2017 [facility] Systolic (mm Hg) 93 04/11/2017 [place] Diastolic (mm Hg) 57 04/11/[address] Respitory Rate 18 04/11/2017 [facility] Heart Rate 74 04/11/2017 [facility] Temperature Oral (F) 98.2 F 04/11/2017 [facility] Heart Rate 78 04/11/2017 [facility] Systolic (mm Hg) 103 04/11/2017 [place] [facility] Diastolic (mm Hg) 65 04/11/[address] Respitory Rate 18 04/11/2017 [facility] Systolic (mm Hg) 93 04/11/2017 [place] [facility] Diastolic (mm Hg) 60 04/11/2017 [facility] st Heart Rate 74 04/11/2017 [facility] Respitory Rate 18 04/11/2017 [facility] Temperature Oral (F) 98.2 F 04/11/2017 [facility] Height 193.04 cm 04/08/2017 [facility] Weight 145.909 04/08/2017 [facility] BMI Calculated 39.16 04/08/2017 [facility] Temperature Oral (F) 98.4 F [...] 03/23/[address] Respitory Rate 18 03/23/2017 [facility] Temperature Oral (F) 98.4 F 03/23/2017 [facility] BMI Calculated 39.69 03/16/2017 [facility] Weight 147.909 03/16/2017 [facility] Height 193.04 cm 03/16/2017 [facility] Weight 129.545 03/16/2017 [facility] BMI Calculated 34.76 03/16/2017 [facility] Height 193.04 cm 03/16/2017 [facility] Temperature Oral (F) 97.9 F 03/11/2016 [facility] Systolic (mm Hg) 106 03/11/2016 [place] [facility] Diastolic (mm Hg) 68 03/11/[address] Heart Rate 109 03/11/2016 [facility] Respitory Rate 18 03/11/2016 [facility] Systolic (mm Hg) 97 03/11/2016 [place] [facility] Diastolic (mm Hg) 64 03/11/[address] Respitory Rate 18 03/11/2016 [facility] Temperature Oral (F) 98.1 F 03/11/2016 [facility] Heart Rate 108 03/11/2016 [facility] Heart Rate 107 03/11/2016 [facility] Temperature Oral (F) 97.8 F 03/11/2016 [facility] Respitory Rate 18 03/11/2016 [facility] Systolic (mm Hg) 100 03/11/2016 [facility] Diastolic (mm Hg) 65 03/11/[address] BMI Calculated 35.62 03/09/2016 [facility] Weight 132.727 03/09/2016 [facility] Height 193.04 cm 03/09/2016 [place] Respitory Rate 18 01/18/2016 [facility] [place] Heart Rate 98 01/18/2016 [place] Temperature Oral (F) 98.7 F 01/18/2016 [place] Systolic (mm Hg) 117 01/18/2016 [facility] [place] Diastolic (mm Hg) 69 01/18/2016 [place] Temperature Oral (F) 98.2 F 01/18/2016 [place] Heart Rate 103 01/18/2016 [place] Respitory Rate 18 01/18/2016 [facility] [place] Systolic (mm Hg) 113 01/18/2016 [facility] [place] Diastolic (mm Hg) 64 01/18/2016 [place] Temperature Oral (F) 98.1 F 01/18/2016 [place] Heart Rate 100 01/18/2016 [place] Respitory Rate 18 01/18/2016 [place] Weight 136.364 01/18/2016 [place] BMI Calculated 36.59 01/18/2016 [place] Height 193.04 cm 01/18/2016 [place] Diastolic (mm Hg) 79 01/18/2016 [place] Systolic (mm Hg) 119 01/18/2016 [place] Weight 138.182 01/17/2016 [place] Heart Rate 72 05/28/2015 [place] Temperature Oral (F) 97.9 F 05/28/2015 [place] Respitory Rate 18 05/28/2015 [place] Systolic (mm Hg) 148 05/28/2015 [place] Diastolic (mm Hg) 77 05/28/2015 [place] Weight 130.5 05/28/2015 [place] Temperature Oral (F) 97.8 F 05/28/2015 [place] Respitory Rate 18 05/28/2015 [place] Heart Rate 76 05/28/2015 [place] Systolic (mm Hg) 167 05/28/2015 [place] Diastolic (mm Hg) 71 05/28/2015 [place] Systolic (mm Hg) 131 04/24/2015 [place] Diastolic (mm Hg) 69 04/24/[address] Respitory Rate 18 04/24/2015 [facility] Temperature Oral (F) 97.7 F 04/24/2015 [facility] Heart Rate 65 04/24/2015 [facility] Systolic (mm Hg) 123 04/24/2015 [place] [facility] Diastolic (mm Hg) 74 04/24/2015 [facility] st Respitory Rate 18 04/24/2015 [facility] Temperature Oral (F) 97.2 F 04/24/2015 [facility] Heart Rate 64 04/24/2015 [facility] Systolic (mm Hg) 110 04/24/2015 [place] Diastolic (mm Hg) 66 04/24/2015 [facility] st Respitory Rate 18 04/24/2015 [facility] Heart Rate 60 04/24/2015 [facility] Temperature Oral (F) 97.7 F 04/24/2015 [facility] Weight 130.004 04/21/2015 [facility] Height 187.96 cm 04/21/2015 [facility] BMI Calculated 36.8 04/21/2015 [facility] Temperature Oral (F) 98 F 02/03/2015 [facility] Heart Rate 69 02/03/2015 [facility] Systolic (mm Hg) 167 02/03/2015 [facility] t Diastolic (mm Hg) 74 02/03/2015 [facility] st Respitory Rate 18 02/03/2015 [facility] Height 172.72 cm 02/02/2015 [facility] Weight 131.364 02/02/2015 [facility] BMI Calculated 44.03 02/02/2015 [facility] Respitory Rate 18 02/02/2015 [facility] Temperature Oral (F) 98.2 F 02/02/2015 [facility] Heart Rate 82 02/02/2015 [facility] Systolic (mm Hg) 118 02/02/2015 [place] Diastolic (mm Hg) 68 02/02/2015 [facility] st Heart Rate 61 07/07/2014 [place] Respitory Rate 16 07/07/2014 [place] Temperature Oral (F) 98.3 F 07/07/2014 [place] Heart Rate 59 07/07/2014 [place] Respitory Rate 18 07/07/2014 [place] Systolic (mm Hg) 159 07/07/2014 [place] Diastolic (mm Hg) 60 07/07/2014 [place] Systolic (mm Hg) 160 07/07/2014 [place] Diastolic (mm Hg) 54 07/07/2014 [place] Respitory Rate 20 07/07/2014 [place] Heart Rate 57 07/07/2014 [place] Systolic (mm Hg) 151 07/07/2014 [place] Diastolic (mm Hg) 61 07/07/2014 [place] Temperature Oral (F) 98.1 F 07/07/2014 [place] Height 193.04 cm 07/07/2014 [place] BMI Calculated 36.72 07/07/2014 [place] Weight 136.818 07/07/2014 [place] Diastolic (mm Hg) 54 04/02/[address] [...] 04/02/2014 [facility] Height 193.04 cm 03/30/2014 [facility] BMI Calculated 31.71 03/30/2014 [facility] Weight 118.182 03/30/2014 [facility] Temperature Oral (F) 98.2 F 03/30/2014 [facility] Heart Rate 58 03/30/2014 [facility] Respitory Rate 18 03/06/2014 [facility] Heart Rate 61 03/06/2014 [facility] Temperature Oral (F) 98.1 F [...] F 03/05/2014 [facility] Weight 127.1 02/27/2014 [facility] Weight 126.3 02/26/2014 [facility] BMI Calculated 33.89 02/26/2014 [facility] Height 193.04 cm 02/26/2014 [facility] Height 193.04 cm 02/25/2014 [facility] Weight 117.727 02/25/2014 [facility] BMI Calculated 31.59 02/25/2014 [facility] Temperature Oral (F) 99 F 01/28/2014 [facility] Heart Rate 67 01/28/2014 [facility] Respitory Rate 18 01/28/2014 [facility] Diastolic (mm Hg) 67 01/28/[address] Systolic (mm Hg) 132 01/28/2014 [place] [facility] Temperature Oral (F) 98.8 F 01/28/2014 [facility] Heart Rate 60 01/28/2014 [facility] Respitory Rate 18 01/28/2014 [facility] Systolic (mm Hg) 139 01/28/2014 [place] Diastolic (mm Hg) 71 01/28/[address] Weight 119.116 01/28/2014 [facility] Systolic (mm Hg) 120 01/28/2014 [place] Diastolic (mm Hg) 54 01/28/[address] Temperature Oral (F) 98.5 F 01/28/2014 [facility] Heart Rate 62 01/28/2014 [facility] Respitory Rate 20 01/28/2014 [facility] BMI Calculated 32.15 01/26/2014 [facility] Height 193.04 cm 01/26/2014 [facility] Weight 119.801 01/26/2014 [facility] Height 193.04 cm 07/20/2012 [place] Weight 122.273 07/20/2012 [place] Systolic (mm Hg) 136 02/28/2012 [place] Heart Rate 116 02/28/2012 [facility] Respitory Rate 18 02/28/2012 [facility] Diastolic (mm Hg) 91 02/28/[address] Temperature Oral (F) 98.7 F 02/28/2012 [facility] Diastolic (mm Hg) 69 02/27/[address] Respitory Rate 20 02/27/2012 [facility] Systolic (mm Hg) 123 02/27/2012 [place] [facility] Temperature Oral (F) 98.3 F 02/27/2012 [facility] Heart Rate 57 02/27/2012 [facility] Diastolic (mm Hg) 61 02/27/2012 [facility] Systolic (mm Hg) 124 02/27/2012 [facility] t Respitory Rate 20 02/27/2012 [facility] Temperature Oral (F) 97.5 F 02/27/2012 [place] Heart Rate 57 02/27/2012 [facility] Height 193.04 cm 02/26/2012 [facility] Weight 120.000 02/26/2012 [facility] Weight 119.091 02/26/2012 [facility] Height 193.04 cm 02/26/2012 [facility] Respitory Rate 18 12/08/2011 [facility] howie Center Diastolic (mm Hg) 49 12/08/2011 [facility] edical Center Systolic (mm Hg) 119 12/08/2011 [facility] dical Center Temperature Oral (F) 98.9 F 12/08/2011 [facility] Heart Rate 57 12/08/2011 [facility] Temperature Oral (F) 99.2 F 12/08/2011 [facility] Heart Rate 57 12/08/2011 [facility] Systolic (mm Hg) 131 12/08/2011 [facility] dical Center Respitory Rate 18 12/08/2011 [facility] howie Center Diastolic (mm Hg) 74 12/08/2011 [facility] edical Center Diastolic (mm Hg) 58 12/08/2011 [facility] edical Center Systolic (mm Hg) 119 12/08/2011 [facility] dical Center Respitory Rate 20 12/08/2011 [facility] howie Center Heart Rate 54 12/08/2011 [facility] Temperature Oral (F) 97.9 F 12/08/2011 [facility] s Medical Center Height 193.04 cm 12/03/2011 [facility] Weight 119.091 12/03/2011 [facility] Weight 119.091 12/01/2011 [facility] Height 193.04 cm 12/01/2011 [facility] Weight 119.091 12/01/2011 [facility] Height 193.04 cm 12/01/2011 [facility] Respitory Rate 18 08/28/2011 [place] Heart Rate 49 08/28/2011 [place] Diastolic (mm Hg) 65 08/28/2011 [place] Systolic (mm Hg) 138 08/28/2011 [place] Temperature Oral (F) 97.7 F 08/28/2011 [place] Diastolic (mm Hg) 55 08/28/2011 [facility] [place] Systolic (mm Hg) 117 08/28/2011 [facility] [place] Heart Rate 54 08/28/2011 [place] Respitory Rate 18 08/28/2011 [place] Temperature Oral (F) 97.9 F 08/28/2011 [place] Diastolic (mm Hg) 61 08/27/2011 [facility] [place] Systolic (mm Hg) 130 08/27/2011 [facility] [place] Respitory Rate 18 08/27/2011 [place] Heart Rate 47 08/27/2011 [place] Temperature Oral (F) 98.1 F 08/27/2011 [place] Weight 129.091 08/26/2011 [place] Height 193.04 cm 08/26/2011 [place] Respitory Rate 18 07/07/2011 [place] Diastolic (mm Hg) 55 07/07/2011 [facility] st Heart Rate 55 07/07/2011 [place] Systolic (mm Hg) 120 07/07/2011 [facility] t Temperature Oral (F) 98.4 F 07/07/2011 [facility] Diastolic (mm Hg) 55 07/07/2011 [facility] st Systolic (mm Hg) 120 07/07/2011 [facility] Respitory Rate 18 07/07/2011 [facility] Temperature Oral (F) 97.3 F 07/07/2011 [facility] Heart Rate 49 07/07/2011 [facility] Temperature Oral (F) 97.8 F 07/07/2011 [facility] Weight 129.900 07/06/2011 [facility] Weight 130.800 07/06/2011 [facility] Height 193.04 cm 07/06/2011 [facility] Systolic (mm Hg) 124 05/05/2011 [place] Respitory Rate 20 05/05/2011 [facility] Diastolic (mm Hg) 52 05/05/2011 [facility] st Heart Rate 57 05/05/2011 [facility] Temperature [...] Rate 52 05/05/2011 [facility] Weight 126.477 05/02/2011 [facility] Weight 125.100 04/28/2011 [facility] Height 193.04 cm 04/28/2011 [facility] Respitory Rate 16.0 02/17/2011 [place] Heart Rate 55.0 02/17/2011 [place] Temperature Oral (F) 97.8 F 02/17/2011 [place] Systolic (mm Hg) 151.0 02/17/2011 [place] Diastolic (mm Hg) 75.0 02/17/2011 [place] Diastolic (mm Hg) 80.0 02/17/2011 [place] Temperature Oral (F) 97.7 F 02/17/2011 [place] Systolic (mm Hg) 157.0 02/17/2011 [place] Respitory Rate 16.0 02/17/2011 [place] Heart Rate 60.0 02/17/2011 [place] Diastolic (mm Hg) 72.0 02/17/2011 [place] Respitory Rate 16.0 02/17/2011 [place] Systolic (mm Hg) 123.0 02/17/2011 [place] Temperature Oral (F) 98.5 F 02/17/2011 [place] Heart Rate 60.0 02/17/2011 [place] Weight 133.778 02/15/2011 [place] Height 193.04 cm 02/15/2011 [place] Weight 134.091 02/14/2011 [place] Height 193.04 cm 02/14/2011 [place] Encounters Location Location Encounter Encounter Reason Attending ADM MO Stat Source Details Type Number For Provider Date Date Visit Inpatient [id number] TONEY BRASHER 02/14 02/17 Disch arg [place] [facility] [place] Inpatient [id number] AKOSUA 04/28 05/[address] [facility] 3 ODOM /[address] [facility] OU [id number] CHEST MONALISA GIL 07/06 07/[address] [facility] 5 PAIN, /2011 [facility] [address] YTOPENIA MH Outpatient [id number] BIJAL ARNALDO 08/14 08/14 Active [facility] [place] 4 MELO [place] Inpatient [id number] GI BLEED AKOSUA 08/25 08/27 Activ e [place] 9 ODOM [place] [facility] Inpatient [id number] LUMBAR MARIA R LOVY 11/30 12/07 Ac tive [facility] 6 SPINAL [facility] OU [id number] ACUTE BHAGWAT 02/24 02/[address] [facility] 2 IA, CATALAN /[address] CARLOS [id number] ARNALDO 07/21 07/21 Discharg [facility] 8 ed [facility] Inpatient [id number] Giao Cox 01/26 01/28 [facility] Inpatient [id number] Giao Cox 02/25 03/06 [facility] OBS Day [id number] Terry 04/02 04/02 [facility] 2 Kriss [facility] [place] [id number] Abdon Forbes 07/07 07/07 [facility] [id number] Pop Mercado 02/02 02/03 [facility] Emergency [facility] e [facility] Inpatient [id number] Mike Odom 04/21 04/24 [facility] EC [id number] Elizabeth Catalan 05/28 05/28 [facility] Observation [id number] Alverto 01/16 01/17 [facility] 7 Alexus [place] [facility] Observation [id number] Kavita 03/09 03/11 No[facility] 5 Melo [facility] Outpatient [id number] ARNALDO 08/18 Active M emoria 0 [facility] Inpatient [id number] Kiritkumar 03/16 03/24 [facility] Inpatient [id number] Kiritkumar 04/10 04/11 Noel 4 [facility] Inpatient [id number] Kiritkumar 03/25 03/29 [facility] 0 [facility] Outpt Diag [id number] Arnaldo 04/19 04/19 [facility] [place] [facility] Inpatient [id number] Cecy 11/30 12/01 [facility] 4 Maryann [facility] CARLOS [id number] BLOOD IN TIARA Cancel [facility] 1 STOOL AVA [place] CARLOS [id number] TEAR [facility] MEDIAL AVA [place] MENISCUS [place] [facility] Preadmit [id number] LUMBAR AMIR NAI Canc el Medical 6 STENOSIS [facility] , LUMBAR Medical RADICULO Center PAUL OD [id number] 486 - ARNALDO Cancel OP ID 3 "[facility] [place], [place] ORGA" Procedures Procedure Code Date Perfomer Comments Source Fluoroscopic [id number] OPID angiography of [place] coronary artery and [facility] insertion of stent [facility] [place] Fusion of lumbar [id number] OPID spine [place] [place] IVC - Insertion of [id number] OPI D inferior vena caval [place] filter [facility] [place] Pacemaker [id number] inserted in OPID care<sup>1</sup> Apr 23, 2015 [place] [place] Percutaneous [id number] OPID transluminal [place] balloon angioplasty [facility] of aorta with stent [facility] placement for [place] coarctation of aorta Procedure on 372667447 states "back OPID back<sup>2</sup> surgery" [facility] [place] IVC - Insertion of [facility] [place] inferior vena caval [place] filter Procedure on back 1states "back MH S ugar <sup>1</sup> surgery" [place] Procedure on 056657672 states "back MH back<sup>1</sup> surgery" Brown meenakshiANCELMO [place] Assessment and Plan Assessment and Plan Date Source Extracted from:Title: Progress Note * 12/01/2018 [facility] Author: Gerry Pina MD Date: [...] chronic kidney dise ase(E11.22) Willrule out acute IA with serial cardi ac enzymes. Monitor patient on telemetry. Consult Dr. Melo, patient's rough rounder. Patientappearscomfortableduring exam. Will monitorvital signs closely. I nsulin forglucose control. Discussed wit h patient plan of care and currently agrees. 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 Patient withhistory of thrombocytopenia. Will monitor for stability. on Eliquis inpatient Extracted from:Title: Electrophysiology 03/29/2018 [facility] Author: Laquita Huynh NP SHUTTLE HAND Date: 03/29/18 Progress Daily [facility] Completed: Mar, 08:47 by Laquita Huynh NP SHUTTLE HAND RM: 412 - 1P, SW E4A JAVIER [...] 2333 Tot Prot (UPE) 8 03/27 1616 [place] Free Light Chain 13.69 Lambda Free Light Teo 130.44 H [place]/Lambda Free Ligh 0.10 L Albumin % 46.4 [...] this consultation Extracted from:Title: Neurology Consultation 04/11/2017 [facility] Author: Mila Adams NP Date: [...] of unclear etiology who presente d to [facility] ED on 04/08/17 for a cheif complaint [...] episodes yesterday. Was subsequently brought to [facility]; patient reports they "checked blood work there," [...] AF - Atrial fibrillation / SNOMED CT 8868309130 / Confirmed Asbestosis / SNOMED CT [id number] / Confirmed Atrial fibrillation / SNOMED CT 84335118 / Confirmed Cardiac catheterization / SNOMED CT 76185019 / Confirmed CHF - Congestive heart failure / SNOMED CT 435215069 / Confi rmed Dizziness / SNOMED CT 3764939825 / Confirmed DVT - Deep vein thrombosis of lower limb / SNOMED CT 7462301 014 / Confirmed Gout / SNOMED CT [id number] / Conf irmed HTN - Hypertension / SNOMED CT 0982333866 / Confirmed IA (myocardial infarction) / SNOMED CT [id number] / Confirmed Monoclonal gammopathy / SNOMED CT [id number] / Confirmed low platelets Morbid obesity / SNOMED CT 290137654 / Confirmed Pain / SNOMED CT 35367352 / Confirmed Sleep apnea / SNOMED CT 401043692 / Confirmed, Active Problems (14) AF - Atrial fibrillation Asbestosis Atrial fibrillation Cardiac catheterization CHF - Congestive heart failure Dizziness DVT - Deep vein thrombosis of lower limb Gout HTN - Hypertension IA (myocardial infarction) Monoclonal gammopathy Morbid obesity Pain Sleep apnea Histories Past Medical History: Active CHF - Congestive heart failure (435483131) HTN - Hypertension (2094920022) DVT - Deep vein thrombosis of lower limb (2038332771) Sleep apnea (211814882) Atrial fibrillation (77341384) Asbestosis ([id number]) Gout ([id number]) IA (myocardial infarction) ([id number]) Monoclonal gammopathy ([id number]) Comments: 02/26/2014 CDT 04:18 CDT - Ivonne Gray RN low platelets Resolved Diabetes mellitus (133664445): Resolved. Comments: 02/26/2014 CDT 02:17 Ivonne Powell RN border line 03/30/2014 AREA MECHANIC 11:40 AREA MECHANIC - Maame Marc RN PATIENT STATES HE IS NOT A DIABETIC 01/17/2016 CDT 19:50 CDT - Ramonita Anthony RN pt states he is not a diabetic CVA - Cerebrovascular accident (808958313): Resolved. Pneumonia ([id number]): Resolved. Family History: Heart disease Sister High blood pressure Mother Heart failure Brother Type 2 diabetes mellitus Mother Sister Pacemaker care Brother Procedure history: Fusion of lumbar spine (067623978). Procedure on back (670170320). Comments: 07/20/2012 15:54 - Natalia Yu RN states "back surgery" IVC - Insertion of inferior vena caval filter (3698703573). Percutaneous transluminal balloon angiop lasty of aorta with stent placement for coarctation of aorta ([id number]). Fluoroscopic angiography of coronary art chrissie and insertion of stent ([id number]). Pacemaker care ([id number]). Comments: 01/17/2016 19:52 - Ramonita Anthony RN [...] neel of unclear etiology who presented to [facility] ED on 04/08/17 for a cheif complaint [...] questions. Extracted from:Title: Progress Note * 01/28/2014 [facility] Author: Monalisa Farmer MD Date: 01/28/14 Patient: JAVIER BUNCH Age: 78 years Sex: Male : 1935 Associated Diagnoses: None Author: Monalisa Farmer MD Subjective no chest pain, palpitations, or shortness of breath Health Status Problem list: All Problems AF - Atrial fibrillation / SNOMED CT 8084138979 / Confirmed Atrial fibrillation / SNOMED CT 87120731 / Confirmed Cardiac catheterization / SNOMED CT 69021967 / Confirmed Diabetes mellitus / SNOMED CT 435288003 / Confirmed Dizziness / SNOMED CT 4767807461 / Confirmed Fusion / SNOMED CT 57320375 / Confirmed HTN - Hypertension / SNOMED CT 1355365785 / Confirmed Pain / SNOMED CT 94366083 / Confirmed Sleep apnea / SNOMED CT 815831277 / Confirmed Inactive: Chest pain / SNOMED CT 25273568 Inactive: Cough / SNOMED CT 27920340 Inactive: Nausea / SNOMED CT 9768674729 Resolved: CHF - Congestive heart failure / SNOMED CT 6572003 14 Resolved: DVT - Deep vein thrombosis of lower limb / SNOMED CT 3774794791 Objective Meds Scheduled Meds (7):AMIODarone (Cordarone ), atorvastatin (Lipitor), carvedilol (Coreg), dabigatran (Pradaxa), gabapentin (Neurontin 400 mg oral capsule), nitroglycerin (nitroglycerin 2% ointment), pantoprazole (Protonix) Unscheduled Meds (1):cefazolin PRN Meds (10):ALPRAZolam (ALPRAZOLam), S odium Chloride 0.9% IV, acetaminophen- hydrocodone ([place] 5/325 oral tablet), acetaminophen (Tylenol), docusate (Colace [...]
--- OUTSIDE RECORDS SUMMARY | 2020-06-12 11:05 | XMS REPORT | Continuity of Care Document ---
:1935 Author Organization [facility] t Address [address] [place] [address] Care Team Providers Name Role Phone Jose [...] Y FAILURE, 11-29 04:35:00 l CHF 00:00: [place] RESPIRATOR 00 Y FAILURE, CHF Active 11/29/2018 [facility] ACUTE ON Diagnosis Active 2019-01-17 M emoria CHRONIC 11-29 09:46:00 l CHF ACUTE ON 00:00: Pankaj n CHRONIC 00 CHF Active 11/29/2018 [facility] J44.9 - Diagnosis Active 2017-052018-05-20 Pa moriroshni CHRONIC 06-14 15:41:00 l OBSTRUCTIV J44.9 - 00:01: Her [place] E CHRONIC 00 PULMONARY OBSTRUCTIV R0 E PULMONARY R0 Active 8 [facility] ATRIAL Diagnosis Active 2017-052018-04-19 Mem oria FIBRILLATI 16 16:22:00 l ON, CAD ATRIAL 00:00: Noel FIBRILLATI 00 ON, CAD Active 03/25/2018 [facility] Acute deep Acute deep Disease Active 2016-05 [place] vein vein 06-14 Methodi thrombosis thrombosis 00:00: st (DVT) of (DVT) of 00 both lower both lower extremitie extremitie s s ALTERED Diagnosis Active 2016-052017-04-20 Pa evonne MENTAL 06-08 21:57:00 l STATUS ALTERED 00:00: Noel MENTAL 00 STATUS Active 04/08/2017 [facility] SENT BY Diagnosis Active 2016-052017-03-16 Me douglass DRShanice 05-16 15:25:00 l SENT BY 00:00: Noel DAMON 00 Active 03/16/2017 [facility] ACUTE DEEP Diagnosis Active 2016-052017-03-22 Memoria VEIN 05-16 08:39:00 l THROMBOSIS ACUTE 00:00: Jessica nn OF LEFT DEEP VEIN 00 LOWER THROMBOSIS OF LEFT LOWER Active 03/16/2017 [facility] CHEST PAIN Diagnosis Active 2015-052016-03-17 Memoria AFIB 0- 22:03:00 l CHEST 00:00: Noel PAIN AFIB 00 Active 03/09/2016 [facility] CHEST Diagnosis Active 2016-01-20 Mem oria TIGHTNESS 01-16 15:11:00 l CHEST 00:00: [place] TIGHTNESS 00 Active 01/17/2016 [facility] UNABLE TO Diagnosis Active 2015-05-28 Memoria URINATE 05-28 15:38:00 l UNABLE 00:00: [place] TO URINATE 00 Active 05/28/2015 [facility] CHEST PAIN Diagnosis Active 2014-052015-05-01 Memoria 06-21 21:54:00 l CHEST 00:00: [place] PAIN 00 Active 04/20/2015 [facility] [place] FLANK PAIN Diagnosis Active 2015-02-02 Memoria 02-02 17:03:00 l FLANK 00:00: Noel PAIN 00 Active 02/02/2015 [facility] 722.93 - Diagnosis Active 2014-11-21 M emoria DISC DIS - 16:48:00 l NEC/NO 722.93 - 00:01: Pankaj n 724.02 - DISC DIS 00 "SPIN NEC/NO 724.02 - "SPIN Active 09/20/[address] [facility] SPITTING Diagnosis Active 2015-10-29 M emoria UP BLOOD, 07-06 10:05:00 l COUGHING SPITTING 12:00: Herm pinky UP MUCUS UP BLOOD, 00 COUGHING UP MUCUS Active 07/06/2014 [facility] 785.6 - Diagnosis Active 2013-052014-08-06 Me moria ENLARGEMEN - 10:58:00 l T LYM 785.6 - 00:01: Noel ENLARGEMEN 00 T LYM Active 03/30/[address] [facility] MEDISTINAL Diagnosis Active 2013-052014-04-02 Memoria LYMPADENOP 05-23 06:14:00 l ATHY 00:00: Noel MEDISTINAL 00 LYMPADENOP ATHY Active 03/23/2014 [facility] HEMOPTYSIS Diagnosis Active 2014-1 2014-02-26 Memoria 0-19 00:32:00 l 00:00: Noel HEMOPTYSIS 00 Active 02/25/2014 [facility] ACS, CHEST Diagnosis Active 2013-052014-02-27 Memoria PAIN 0-19 07:54:00 l ACS, 00:00: Noel CHEST PAIN 00 Active 02/25/2014 [facility] MULTIFOCAL Diagnosis Active 2013-052014-03-13 Memoria PNEUMONIA, 0-19 17:32:00 l HEMOPTYSIS 00:00: Pankaj n , ACS, C MULTIFOCAL 00 PNEUMONIA, HEMOPTYSIS , ACS, C Active 02/25/2014 [facility] A-FIB, Diagnosis Active 2014-02-02 Mem oria TACHYCARDI - 22:29:00 l A A-FIB, 21:00: [place] TACHYCARDI 00 A Active 01/25/2014 [facility] MEDIASTINA Diagnosis Active 2012-07-21 Memoria L 3-07 11:17:00 l LYMPHADENO 00:00: Pankaj pena PAUL MEDIASTINA 00 L LYMPHADENO PAUL Active 07/14/2012 [facility] 486 - Diagnosis Active 2012-07-14 Mem oria "PNEUMONIA 1-22 15:30:00 l , ORGA" 486 - 00:01: oNel "PNEUMONIA 00 , ORGA" Active 05/31/2012 [facility] ACUTE FL, Diagnosis Active 2011-052012-03-07 Memoria NSTEMI 0-18 08:55:00 l ACUTE 00:00: Noel FL, NSTEMI 00 Active 02/25/2012 [facility] LUMBAR Diagnosis Active 2011-12-14 Mem oria SPINAL 7- 21:47:00 l STENOSIS LUMBAR 00:00: Pankaj pena SPINAL 00 STENOSIS Active 12/01/2011 [facility] LUMBAR Diagnosis Active 2012-02-05 Mem oria STENOSIS, 5- 15:16:00 l LUMBAR LUMBAR 00:00: Noel RADICULOPA STENOSIS, 00 THY LUMBAR RADICULOPA THY Active 09/08/2011 [facility] GI BLEED Diagnosis Active 2011-09-02 M emoria 4-18 22:00:00 l GI BLEED 15:00: Pankaj n 00 Active 08/26/2011 [facility] CHEST Diagnosis Active 2011-07-07 Mem oria PAIN, 2- 12:57:00 l THROMBOCYT CHEST 08:00: Jessica nn OPENIA PAIN, 00 THROMBOCYT OPENIA Active 07/05/2011 [facility] BIJAL Diagnosis Active 2011-08-22 Mem oria 05-18 15:27:00 l BIJAL 00:00: Noel 00 Active 05/18/2011 [facility] Cardiac Problem Active 2010-052018-12-03 Kaz david catheteriz 06-29 22:16:39 l ation Cardiac 00:00: Noel (procedure catheteriz 00 ) ation (procedure ) Active 04/28/2011 Problem 12/03/2018 [facility] [place] [place] Cardiac Problem Active 2010-052012-07-23 Kaz david catheteriz 06-29 09:02:15 l ation Cardiac 00:00: Noel catheteriz 00 ation Active 04/28/2011 Problem 07/23/2012 [facility], [facility] [place] [place] ATRIAL Diagnosis Active 2010-052011-04-30 Mem oria FIB, 06-28 15:36:00 l UNSTABLE ATRIAL 15:47: Pankaj pena ANGINA FIB, 00 UNSTABLE ANGINA Active 04/27/2011 [facility] TEAR Diagnosis Active 2010-052011-09-30 Mem oria MEDIAL 05-16 17:50:00 l MENISCUS TEAR 00:00: Noel MEDIAL 00 MENISCUS Active 03/16/2011 [facility] BLOOD IN Diagnosis Active 2010-052011-03-27 M emoria STOOL 0-06 15:38:00 l BLOOD IN 00:00: Pankaj pena STOOL 00 Active 02/12/2011 [facility] Illness, Problem 2018-12-03 Mem oria unspecifie 22:16:39 l d Illness, Pankaj n unspecifie d 12/03/2018 [facility] Immune Problem 2018-10-16 Memor ia thrombocyt 13:38:32 l 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 10/16/2018 [facility] Hypertensi Problem 2018-10-16 M emoria ve heart 13:38:32 l and [place] chronic Hypertensi kidney ve heart disease and with heart chronic failure kidney and stage disease 1 through with heart stage 4 failure chronic and stage kidney 1 through disease, stage 4 or chronic unspecifie kidney d chronic disease, kidney or disease unspecifie d chronic kidney disease 10/16/2018 [facility] Paroxysmal Problem 2018-10-16 M emoria atrial 13:38:32 l fibrillati Pankaj n on Paroxysmal atrial fibrillati on 10/16/2018 [facility] Encounter Problem 2018-10-16 Me moria for 13:38:32 l immunizati Pankaj n on Encounter for immunizati on 10/16/2018 [facility] Metabolic Problem 2018-10-16 Me moria syndrome 13:38:32 l Noel Metabolic syndrome 10/16/2018 [facility] Morbid Problem 2018-10-16 Memor ia (severe) 13:38:32 l obesity Morbid [place] due to (severe) excess obesity calories due to excess calories 10/16/2018 [facility] Dilated Problem 2018-10-16 Kaz david cardiomyop 13:38:32 l athy Dilated Noel cardiomyop athy [facility] 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 13:38:32 l heart [place] 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 without angina pectoris 10/16/2018 [facility] Chronic Problem 2018-10-16 Kaz david kidney 13:38:32 l disease, Chronic Jessica nn stage 3 kidney (moderate) disease, stage 3 (moderate) 10/16/2018 [facility] Hyperlipid Problem 2018-10-16 emoria emia, 13:38:32 l unspecifie Pankaj n d Hyperlipid emia, unspecifie d 10/16/2018 [facility] Bronchitis Problem 2018-10-16 M emoria , not 13:38:32 l specified [place] as acute Bronchitis or chronic , not specified as acute or chronic 10/16/2018 [facility] Unspecifie Problem 2018-10-16 M emoria 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:38:32 l osteoarthr Pankaj n itis, Unspecifie unspecifie d d site osteoarthr itis, unspecifie d site 10/16/2018 [facility] Gout, Problem 2018-10-16 Memor ia unspecifie 13:38:32 l d Gout, Noel unspecifie d 10/16/2018 [facility] Presence Problem 2018-10-16 Mem oria of cardiac 13:38:32 l pacemaker Presence Her [place] of cardiac pacemaker 10/16/2018 [facility] Personal Problem 2018-10-16 Mem oria history of 13:38:32 l nicotine Personal Herm pinky dependence history of nicotine dependence 10/16/2018 [facility] 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 10/16/2018 [facility] Heart Problem 2018-10-16 Memor ia failure, 13:38:32 l unspecifie Heart Jessica nn d failure, unspecifie d 10/16/2018 [facility] Coronary Problem 2018-10-16 Mem oria angioplast 13:38:32 l y status Coronary Herm pinky angioplast y status 10/16/2018 [facility] Personal Problem 2018-10-16 Mem oria history of 13:38:32 l transient Personal Her [place] ischemic history of attack transient (TIA), and ischemic cerebral attack infarction (TIA), and without cerebral residual infarction deficits without residual deficits 10/16/2018 [facility] Anemia, Problem 2018-10-16 Kaz david unspecifie 13:38:32 l d Anemia, Noel unspecifie d 10/16/2018 [facility] Sleep Problem 2018-10-16 Memor ia apnea, 13:38:32 l unspecifie Sleep Jessica nn d apnea, unspecifie d 10/16/2018 [facility] Hypotensio Problem 2018-10-16 M emoria n, 13:38:32 l unspecifie Pankaj n d Hypotensio n, unspecifie d 10/16/2018 [facility] Personal Problem 2018-10-16 Mem oria history of 13:38:32 l other Personal Pankaj n venous history of thrombosis other and venous embolism thrombosis and embolism 10/16/2018 [facility] Old Problem 2018-10-16 Memor ia myocardial 13:38:32 l infarction Old Pankaj n myocardial infarction 10/16/2018 [facility] 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 13:38:32 l Noel Monoclonal gammopathy 10/16/2018 [facility] Chest pain Problem Inactiv 2012-07-23 Memoria e 09:02:15 l Chest [place] pain Inactive Problem 07/23/2012 [facility], [facility] [place] Nausea Problem Inactiv 2012-07-23 Kaz david e 09:02:15 l Nausea [place] Inactive Problem 07/23/2012 [facility], [facility] [place] Cough Problem Inactiv 2012-07-23 Kaz david e 09:02:15 l Cough Noel Inactive Problem 07/23/2012 [facility], [facility] [place] Cerebrovas Problem Resolve 2018-12-03 Memoria cular d 22:16:39 l accident [place] (disorder) Cerebrovas cular accident (disorder) Resolved Problem 12/03/2018 [facility] Diabetes Problem Resolve 2018-12-03 Me moria mellitus d 22:16:39 l (disorder) Diabetes He rmann mellitus (disorder) Resolved Problem 12/03/2018 pt states he is not a diabeticPA TIENT STATES HE IS NOT A DIABETICbo rder line [facility] Pneumonia Problem Resolve 2018-12-03 M emoria (disorder) d 22:16:39 l [place] Pneumonia (disorder) Resolved Problem 12/03/2018 [facility] CHF - Problem Resolve 2012-07-23 Kaz david Congestive d 09:02:15 l heart CHF - Noel failure Congestive heart failure Resolved Problem 07/23/2012 [facility] DVT - Deep Problem Resolve 2012-07-23 Memoria vein d 09:02:15 l thrombosis DVT - Jessica nn of lower Deep vein limb thrombosis of lower limb Resolved Problem 07/23/2012 [facility] Atrial Problem Active 2018-12-03 Memor ia fibrillati 22:16:39 l on Atrial [place] (disorder) fibrillati on (disorder) Active Problem 12/03/2018 [facility] [place] Asbestosis Problem Active 2018-12-03 M emoria (disorder) 22:16:39 l [place] Asbestosis (disorder) Active Problem 12/03/2018 [facility] Congestive Problem Active 2018-12-03 M emoria heart 22:16:39 l failure Noel (disorder) Congestive heart failure (disorder) Active Problem 12/03/2018 [facility] [place] Dizziness Problem Active 2018-12-03 Me moria (finding) 22:16:39 l Noel Dizziness (finding) Active Problem 12/03/2018 [facility] [place] [place] Deep Problem Active 2018-12-03 Memor ia venous 22:16:39 l thrombosis Deep Pankaj n of lower venous extremity thrombosis (disorder) of lower extremity (disorder) Active Problem 12/03/2018 [facility] [place],[facility] Gout Problem Active 2018-12-03 Memor ia (disorder) 22:16:39 l Gout Noel (disorder) Active Problem 12/03/2018 [facility] [place] Hypertensi Problem Active 2018-12-03 M emoria ve 22:16:39 l disorder, Noel systemic Hypertensi arterial ve (disorder) disorder, systemic arterial (disorder) Active Problem 12/03/2018 [facility] [place] Myocardial Problem Active 2018-12-03 M emoria infarction 22:16:39 l (disorder) Pankaj n Myocardial infarction (disorder) Active Problem 12/03/2018 [facility] [place], [facility] Monoclonal Problem Active 2018-12-03 M emoria gammopathy 22:16:39 l (disorder) Pankaj n Monoclonal gammopathy (disorder) Active Problem 12/03/2018 low platelets [facility] [place],[facility] Morbid Problem Active 2018-12-03 Memor ia obesity 22:16:39 l (disorder) Morbid Herm pinky obesity (disorder) Active Problem 12/03/2018 [facility] [place] Pain Problem Active 2018-12-03 Memor ia (finding) 22:16:39 l Pain Noel (finding) Active Problem 12/03/2018 [facility] [place] Sleep Problem Active 2018-12-03 Memor ia apnea 22:16:39 l (finding) Sleep Pankaj n apnea (finding) Active Problem 12/03/2018 [facility] [place],[facility], [facility] Dizziness Problem Active 2011-08-30 Me moria 09:29:29 l Noel Dizziness Active Problem 08/30/2011 [facility] AF - Problem Active 2012-07-23 Memor ia Atrial 09:02:15 l fibrillati AF - Pankaj n on Atrial fibrillati on Active Problem 3 [facility], [facility] [place] Atrial Problem Active 2012-07-23 Memor ia fibrillati 09:02:15 l on Atrial Noel fibrillati on Active Problem 3 [facility] Diabetes Problem Active 2012-07-23 Mem oria mellitus 09:02:15 l Diabetes Pankaj n mellitus Active Problem 07/23/2012 [facility] Dizziness Problem Active 2012-07-23 Me moria 09:02:15 l Noel Dizziness Active Problem 07/23/2012 [facility], [facility] [place] Fusion Problem Active 2012-07-23 Memor ia 09:02:15 l Fusion Noel Active Problem 07/23/2012 [facility], [facility] [place] HTN - Problem Active 2012-07-23 Memor ia Hypertensi 09:02:15 l on HTN - Noel Hypertensi on Active Problem 3 [facility], [facility] Pain Problem Active 2012-07-23 Memor ia 09:02:15 l Pain [place] Active Problem 07/23/2012 [facility], [facility] [place] Sleep Problem Active 2012-07-23 Memor ia apnea 09:02:15 l Sleep [place] apnea Active Problem 07/23/2012 [facility] Fused Problem Active 2016-03-14 Memor ia structure 02:15:12 l (morpholog Fused Jessica nn ic structure abnormalit (morpholog y) ic abnormalit y) Active Problem 6 [facility], [place] CHEST PAIN Diagnosis Active 2011-02-16 Memoria NOS 11:42:00 l CHEST [place] PAIN NOS Active [facility] ATRIAL Diagnosis Active 2014-02-02 Mem oria FIBRILLATI 22:29:00 l ON ATRIAL [place] FIBRILLATI ON Active [facility] ANGINA Diagnosis Active 2011-04-30 Mem oria DECUBITUS 15:36:00 l ANGINA [place] DECUBITUS Active [facility] SLEEP Diagnosis Active 2011-08-22 Mem oria APNEA NOS 15:27:00 l SLEEP Noel APNEA NOS Active [facility] GASTROINTE Diagnosis Active 2011-09-[address] HEMORR 22:00:00 l NOS [place] GASTROINTE ST HEMORR NOS Active [facility] LUMB/LUMBO Diagnosis Active 2012-02-05 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:00 l DEGEN [place] LUMB/LUMBO SAC DISC DEGEN Active [facility] SPIN Diagnosis Active 2012-02-05 Mem oria STEN,LUMBR 15:16:00 l WO OMARI SPIN [place] STEN,LUMBR WO OMARI Active [facility] LUMBOSACRA Diagnosis Active 2012-02-05 Memoria L 15:16:00 l SPONDYLOSI Pankaj n S LUMBOSACRA L SPONDYLOSI S Active [facility] AMI Diagnosis Active 2012-03-07 Mem oria NOS-INITIA 08:55:00 l L EPISODE AMI [place] NOS-INITIA L EPISODE Active [facility] PNEUMONIA, Diagnosis Active 2014-03-13 Memoria ORGANISM 17:32:00 l NOS Noel PNEUMONIA, ORGANISM NOS Active [facility] ENLARGEMEN Diagnosis Active 2014-04-02 Memoria T LYMPH 06:14:00 l NODES Noel ENLARGEMEN T LYMPH NODES Active [facility] CHEST Diagnosis Active 2015-05-01 Mem oria PAIN, 21:54:00 l UNSPECIFIE CHEST Jessica nn D PAIN, UNSPECIFIE D Active [facility] ILLNESS, Diagnosis Active 2018-11-30 M emoria UNSPECIFIE 04:35:00 l D ILLNESS, Pankaj n UNSPECIFIE D Active [facility] ACUTE Diagnosis Active 2017-03-22 Mem oria EMBOLISM 08:39:00 l AND ACUTE Noel THOMBOS EMBOLISM UNSP DEEP AND VEI THOMBOS UNSP DEEP VEI Active [facility] SYNCOPE Diagnosis Active 2017-04-20 Me moria AND 21:57:00 l COLLAPSE SYNCOPE Jessica nn AND COLLAPSE Active [facility] ANEMIA, Diagnosis Active 2017-04-20 Me moria UNSPECIFIE 21:57:00 l D ANEMIA, Noel UNSPECIFIE D Active [facility] UNSPECIFIE Diagnosis Active 2018-04-19 Memoria D ATRIAL 16:22:00 l FIBRILLATI Pankaj n ON UNSPECIFIE D ATRIAL FIBRILLATI ON Active [facility] HEART Diagnosis Active 2019-01-17 Mem oria FAILURE, 09:46:00 l UNSPECIFIE HEART Jessica nn D FAILURE, UNSPECIFIE D Active [facility] BENIGN Diagnosis Active 2018-11-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:14:00 l 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 Active [facility] RECURRENT Diagnosis Active 2018-11-30 Memoria AND PERST 14:14:00 l HEMATURIA Noel W UNSP MOR RECURRENT AND PERST HEMATURIA W UNSP MOR Active [facility] Sick sinus Problem 2017-052018-10-16 2018-10-16 Memoria syndrome 06-07 13:38:32 13:38:32 l Sick 05:28: [place] sinus 29 syndrome 8 10/16/2018 [facility] Discharge Problem 2015-05-31 2015-05-31 Memoria Diagnosis: 05-28 04:51:27 04:51:27 l Chronic 06:00: [place] renal Discharge 00 insufficie Diagnosis: ncy Chronic renal insufficie ncy 05/28/2015 05/31/2015 [facility] Discharge Problem 2015-05-31 2015-05-31 Memoria Diagnosis: 05-28 04:51:27 04:51:27 l Acute 06:00: Noel urinary Discharge 00 tract Diagnosis: infection Acute urinary tract infection 05/28/2015 05/31/2015 [facility] Discharge Problem 2015-02-05 2015-02-05 Memoria Diagnosis: 02-02 03:21:07 03:21:07 l Accidental 05:00: Pankaj n fall Discharge 00 Diagnosis: Accidental fall 02/02/2015 02/05/2015 [facility] Discharge Problem 2015-02-05 2015-02-05 Memoria Diagnosis: 02-02 03:21:07 03:21:07 l Contusion 05:00: Noel of hip Discharge 00 Diagnosis: Contusion of hip 02/02/2015 02/05/2015 [facility] Discharge Problem 2014-07-08 2014-07-08 Memoria Diagnosis: 07-06 20:37:37 20:37:37 l Hemoptysis 06:00: Pankaj n Discharge 00 Diagnosis: Hemoptysis 07/06/2014 07/08/2014 [facility] Allergies, Adverse Reactions, Alerts Allergy Allergy Status [...] s to drug Sulfa Propensi Active 2016-05 [facility] (Sulfona ty to 2-05 [facility] mide adverse 00:00: st Antibiot reaction 00 ics) s to drug sulfa sulfa Active Memoria drugs drugs l Noel Plavix Plavix Active Memoria l Noel Bactrim Bactrim Active Severe Memoria l Noel NKFA NKFA Active Memoria l Noel Social History Social Habit Start Date Stop Date Quantity Comments Source Sex Assigned At [place] [facility] ethodist Alcohol intake 2017-04-23 2017-04-23 Current [place] [facility]odist 00:00:00 00:00:00 non-drinker of alcohol (finding) Social History 2014-01-26 2014-01-26 [facility] ermann 10:04:58 10:04:58 Smoking Status Start Date Stop Date Source Never smoker [place] Method t Medications Ordered Filled Start Stop Current Ordering Indication Dosage Frequency Signature Comments Components Source Medication Medication Date Date Medication? Clinician (SIG) Name Name carvedilol Yes 3.125 mg = M emoria 3.125 mg 725 1 tab, PO, l oral tablet 18:07: Q12H, 0 Her [place] 00 Refill(s) atorvastati No Notes: Kaz david n 7-25 (Same as: l 14:00: Lipitor) Allopurinol No [...] ia 7-24 Give with l 14:00: food. (Same As: Coreg) Aspirin 81 No Notes: Do Me moria MG Enteric 24 not crush l Coated 14:00: or chew. Noel Tablet 00 (Same As: Ecotrin) Acetaminoph No Notes: Do M emoria en 300 MG / 24 not exceed l Codeine 09:27: 4gm/day of Herm pinky Phosphate 00 acetaminop 30 MG Oral hen. Tablet (Same as: [Tylenol Tylenol with with Codeine #3] Codeine # 3) Saline No Notes: Memoria Flush 0.9% 11-30 Same as: l 06:21: BD [place] 00 Posiflush Sterile apixaban Yes 2.5 mg, [...] tab, PO, l tablet 03:56: Daily, 0 [place] 00 Refill(s) Acetaminoph Yes 1 tab, PO, Memoria en 325 MG / 11-30 Q6H, PRN l Hydrocodone 03:56: Pain, 0 [...] tab, PO, l tablet 19:32: BID, 0 [place] 00 Refill(s) metoprolol 2017-05 Yes 25 mg = 1 Me moria tartrate 25 1-20 tab, PO, l mg oral 19:32: Q12H, 0 [place] tablet 00 Refill(s) Amiodarone 2017-05 No Notes: Memor ia -19 (Same as: l 23:00: Cordarone) [place] 00 Fentanyl 2017-05 No 100 Memoria 1-19 microgram, l 20:12: Route: IV, ONCE, Dosing Weight 137.727, kg, Start date: 03/28/18 14:12:00 [employer] CHAINSTITCH, Stop date: 03/28/18 14:12:00 [employer] Midazolam 2017-05 No 2 mg, Memoria 1-19 Route: IV, l 20:12: ONCE, Dosing Weight 137.727, kg, Start date: 03/28/18 14:12:00 SEAT [employer]ER CHAINSTITCH, Stop date: 03/28/18 14:12:00 [employer]ITCH metoprolol 2017-05 No Notes: Memor ia tartrate -19 (Same as: l 03:00: Lopressor) Warfarin 2017-05 No Notes: Frank[place] -18 Nurse to l 23:00: ensure documentat ion of patient education per anticoagul ation policy. Avoid large intake of vitamin-K containing foods diet. (Same As: Coumadin) WASTE: F/P - P Waste Black; E - P Waste Black metoprolol 2017-05 No Notes: Memor ia tartrate -18 (Same as: l 20:25: Lopressor) Furosemide 2017-05 [...] 1-17 Route: IM, l 18:50: Drug form: [place] 00 PDR/INJ, PRN, Dosing Weight 137.727, kg, PRN Blood Glucose Results, Start date: 03/26/18 12:50:00 [employer] CHAINSTITCH, Duration: 30 day, Stop date: 04/25/18 12:49:00 [employer] Dextrose 2017-05 No 12.5 gm, Memor ia 50% Syringe -17 25 mL, l 18:50: Route: [place] 00 IVP, Drug Form: INJ, Dosing Weight 137.727, kg, PRN, PRN Blood Glucose Results, Start date: 03/26/18 12:50:00 [employer] CHAINSTITCH, Duration: 30 day, Stop date: 04/25/18 12:49:00 [employer] Senokot 2017-05 No Notes: Memoria 1-17 (Same as: l 15:00: Senokot) Noel 00 docusate 2017-05 No Notes: Memoria sodium 100 17 (Same as: l mg oral 15:00: Colace) Noel capsule (Do Not Crush) Allopurinol 2017-05 No Notes: Kaz david -17 (Same as: l 15:00: Zyloprim) Noel Amoxicillin 2017-05 No Notes: Kaz david / -17 With food. l Clavulanate 15:00: (Same as: H erm Augmentin 875) Prednisone 2017-05 No Route: PO, M emoria 1-17 Daily, l 15:00: Dosing Noel 00 Weight 137.727, kg, Start date: 03/26/18 9:00:00 [employer] CHAINSTITCH, Duration: 30 day, Stop date: 04/24/18 9:00:00 [employer] Losartan 2017-05 No Notes: Memoria 1-17 (Same as: l 15:00: Cozaar) Noel Aspirin 81 2017-05 No Notes: Do Me moria MG Enteric -17 not crush l Coated 15:00: or chew. [place] Tablet 00 (Same As: Ecotrin) Lovenox 2017-05 No Notes: Memoria 1-17 (Same as: l 03:00: Lovenox) [place] atorvastati 2018-1 No Notes: Kaz david n -17 (Same as: l 03:00: Lipitor) DuoNeb 2017-05 No Notes: Memoria inhalation -16 (Same as: l solution 23:22: Duoneb) Pankaj n Amiodarone 2017-05 No Notes: Memor ia -16 (Same as: l 23:00: Cordarone) gabapentin 2017-05 No Notes: Memor ia 100 MG Oral 16 (Same as: l Capsule 23:00: Neurontin) Herm pinky SENOKOT-S 2017-05 No 1 tab, Memori a 05-25 Route: PO, l 23:00: Dosing Weight 137.727, kg, BID, Start date: 03/25/18 17:00:00 [employer] CH[employer]STITCH, Duration: 30 day, Stop date: 04/24/18 9:00:00 [employer]ITCH carvedilol 2017-05 No Notes: Memor ia -16 Give with l 23:00: food. [place] 00 (Same As: Coreg) 200 ACTUAT 2017-05 No 2 puff, Kaz david Albuterol 05-25 Route: l 0.09 22:51: INHALER, [place] MG/ACTUAT / 00 Drug Form: Ipratropium AERO/A, [place] Dosing 0.018 Weight MG/ACTUAT 137.727, Metered kg, BID, Dose PRN Inhaler Wheezing, [Combivent] Start date: 03/25/18 16:51:00 SEAT JOINER CHAINSTITCH, Duration: 30 day, Stop date: 04/24/18 16:50:00 SEAT [employer]ER CHAINSTITCH gabapentin 2017-05 Yes 200 mg = 2 M emoria 100 MG Oral 16 cap, PO, l Capsule 22:32: BID, 0 [place] 00 Refill(s) Warfarin 2017-05 No See Memoria 16 Instructio l 22:32: ns, 1 mg PO EVERY OTHER DAY, 0 Refill(s) Augmentin 2017-05 No 875 mg, Memor ia -16 PO, Daily, l 22:32: # 20 tab, 0 Refill(s) carvedilol 2017-05 Yes 25 mg, PO, M emoria 1-16 BID, 0 l 22:32: Refill(s) [place] 00 Losartan 2017-05 No 100 mg, Memori a 1-16 PO, Daily, l 22:32: 0 [place] 00 Refill(s) warfarin 2017-05 No 2.5 mg = 1 Mem oria 2.5 mg oral 1-16 tab, PO, l tablet 22:32: Daily, 0 [place] 00 Refill(s) Prednisone 2017-05 No See Memoria 1-16 Instructio l 22:32: ns, 4 TABS [place] 00 DAILY FOR 4 DAYS SINCE EN 3 TABS DAILY FOR 4 DAYS,2 TABS DAILY FOR 4 DAYS,THEN 1 TAB DAILY FOR 4 DAYS, 0 Refill(s) Aspirin 81 2017-05 Yes 81 mg = 1 Me moria MG Enteric 1-16 tab, PO, l Coated 22:32: Daily, # [place] Tablet 00 90 tab, 3 Refill(s) tamsulosin [...] Do M emoria en 300 MG / 2- not exceed l Codeine 02:05: 4gm/day of Herm pinky Phosphate acetaminop 30 MG Oral hen. Tablet (Same as: [Tylenol Tylenol with with Codeine #3] Codeine # 3) Furosemide 2016-05 No Notes: Memor ia 1-30 (Same as: l 23:00: Lasix) Noel 00 May cause GI upset. Give with food or milk. SENOKOT-S 2016-05 No 1 tab, Memori a 06-08 Route: PO, l 23:00: Dosing Weight 145.909, kg, BID, Start date: 04/08/17 17:00:00 SEAT JOINER CHAINSTITCH, Duration: 30 day, Stop date: 05/08/17 9:00:00 SEAT JOINER CHAINSTITCH carvedilol 2016-05 No Notes: Memor ia 1-30 Give with l 23:00: food. Noel (Same As: Coreg) Senokot 2016-05 No Notes: Memoria -30 (Same as: l 23:00: Senokot) Nole 200 ACTUAT 2016-05 No Notes: Memor ia Albuterol -30 Same as: l 0.09 22:48: Combivent Noel MG/ACTUAT / 00 Respimat Ipratropium WASTE: [place] Aerosol - 0.018 Return to MG/ACTUAT Pharmacy Metered Dose Inhaler [Combivent] Insulin 2016-05 No Notes: Memoria Lispro -30 Roll in l 22:41: palms of hands gently; Do not shake `vigorousl y. (Same as: Humalog ) "Single Patient Use Only " WASTE: F/P - Black; E - Municipal Trash Bin Stable for 28 days at room temperatur e. Expires in days from ____Date Glucagon 2016-05 No 1 mg, Memoria 30 Route: IM, l 22:41: Drug form: Noel 00 PDR/INJ, PRN, Dosing Weight 145.909, kg, PRN Blood Glucose Results, Start date: 04/08/17 16:41:00 SEAT JOINER CHAINSTITCH, Duration: 30 day, Stop date: 05/08/17 16:40:00 SEAT JOINER CHAINSTITCH Dextrose 2016-05 No 25 gm, 50 Kaz david 50% Syringe 1-30 mL, Route: l 22:41: IVP, Drug [place] 00 Form: INJ, Dosing Weight 145.909, kg, PRN, PRN Blood Glucose Results, Start date: 04/08/17 16:41:00 SEAT JOINER CHAINSTITCH, Duration: 30 day, Stop date: 05/08/17 16:40:00 SEAT JOINER CH[employer]STITCH carvedilol 2016-05 No 25 mg = 1 Me moria 25 mg oral 1-30 tab, PO, l tablet 20:52: BID, # 180 Jessica nn 00 tab, 0 Refill(s) Golytely 2016-05 No Notes: Memoria 1-13 (polyethyl l 19:56: irina glycol [place] 00 electrolyt e solution 4 Liter bottle) (Same as: Moni Colyte) Acetaminoph 2016-05 No Notes: Do M emoria [...] 3) Amlodipine 2016-05 No Notes: Memor ia 1-11 (Same as: l 23:00: Norvasc) [place] 00 Potassium 2016-05 No Notes: Memori a Chloride -11 (Same as: l 18:04: K-Dur 20) [place] 00 "Do Not Crush" With food and full glass of water tramadol 2016-05 No Notes: Not Mem oria hydrochlori -11 to exceed l de 50 MG 16:41: 400mg/day. Her [place] Oral Tablet 00 (Same As: Ultram) Tylenol 2016-05 No Notes: Do Memor ia 1-11 not exceed l 00:51: 4 gm/day. [place] 00 (Same as: Tylenol) Protonix 2016-05 No Notes: Memoria 1-10 Tablet l 17:44: should not [place] 00 be chewed or crushed. (Same as: Protonix) Enoxaparin 2016-05 No Notes: Memor ia 05-18 Nurse to l 19:30: ensure Noel 00 documentat ion of patient education per anticoagul ation policy. (Same as: Lovenox) Coumadin 2016-05 No Notes: Memoria 05-18 Nurse to l 19:05: ensure [place] 00 documentat ion of patient education per anticoagul ation policy. Avoid large intake of vitamin-K containing foods diet. (Same As: Coumadin) WASTE: F/P - P Waste Black; E - P Waste Black Potassium 2016-05 No Notes: Memori a Chloride 05-18 (Same as: l 16:51: K-Dur 20) Noel 00 "Do Not Crush" [...] Total Volume: 250, Start Date: 03/17/17 11:37:00 SEAT JOINER CHAINSTITCH, Duration: 30 day, Stop date: 04/16/17 11:36:00 SEAT JOINER CHAINSTITCH, Replace Every: 24 hr bivalirudin 2016-05 No 250 mg, Mem oria 50 MG/ML 05-17 250 mL, l Injectable 17:35: Rate: Pankaj n Solution 00 Start at 0.05 mg/kg/hr, Dosing Weight 147.909, kg, Route: IV, Total Volume: 250, Start Date: 03/17/17 11:35:00 SEAT JOINER CHAINSTITCH, Duration: 30 day, Stop date: 04/16/17 11:34:00 SEAT JOINER CHAINSTITCH, Replace Every: 24 hr Losartan 2016-05 No Notes: Memoria 05-17 (Same as: l 15:00: Cozaar) [place] 00 Furosemide 2016-05 No Notes: Memor ia 05-17 (Same as: l 15:00: Lasix) Noel 00 May cause GI upset. Give with food or milk. carvedilol 2016-05 No Notes: Memor ia -08 Give with l 15:00: food. Noel (Same As: Coreg) Allopurinol 2016-05 No Notes: Kaz david 05-17 (Same as: l 15:00: Zyloprim) Potassium 2016-05 No Notes: Memori a Chloride 05-17 (Same as: l 14:17: K-Dur 20) [place] 00 "Do Not Crush" With food and full glass of water Lovenox 2016-05 No Notes: Memoria 05-17 Nurse to l 12:00: ensure Noel 00 documentat ion of patient education per anticoagul ation policy. (Same as: Lovenox) Senokot 2016-05 No Notes: Memoria 05-17 (Same as: l 03:00: Senokot) Noel 00 tamsulosin 2016-05 No Notes: Memor ia 05-17 (Same As: l 03:00: Flomax) "Do Not Crush" SENOKOT-S 2016-05 No 2 tab, Memori a 05-17 Route: PO, l 03:00: Dosing Weight 147.909, kg, Bedtime, Start date: 03/16/17 21:00:00 SEAT JOINER CHAINSTITCH, Duration: 30 day, Stop date: 04/14/17 21:00:00 SEAT JOINER CHAINSTITCH atorvastati 2016-05 No Notes: Kaz david n -08 (Same as: l 03:00: Lipitor) [place] 00 200 ACTUAT 2016-05 No Notes: Memor ia Albuterol 05-17 Same as: l 0.09 00:45: Combivent Noel MG/ACTUAT / 00 Respimat Ipratropium WASTE: [place] Aerosol - 0.018 Return to MG/ACTUAT Pharmacy Metered Dose Inhaler [Combivent] Streptococc 2016-05 No Notes: Kaz david us -08 Shake well l pneumoniae 00:35: prior to Her [place] serotype 1 45 use (Same capsular as: antigen Prevnar diphtheria 13) [id number] protein conjugate vaccine / Streptococc us pneumoniae serotype 14 capsular antigen diphtheria [id number] protein conjugate vaccine / Streptococc us pneumoniae serotype 18C capsular antigen d carvedilol 2016-05 No 25 mg = 1 Me moria 25 mg oral 1-08 tab, PO, l tablet 00:28: BID, 0 Noel 00 Refill(s) Furosemide 2016-05 Yes 40 mg, PO, M emoria 1-08 BID, 0 l 00:28: Refill(s) [place] tamsulosin 2016-05 Yes 0.4 mg, Kaz david 1-08 PO, l 00:28: Bedtime, 0 Noel 00 Refill(s) Losartan 2016-05 Yes 100 mg, Memori a 1-08 PO, Daily, l 00:28: 0 [place] 00 Refill(s) sodium 2016-05 No 1,000 mL, Memori a chloride 05-16 Rate: 75 l 0.9% 1000 23:43: ml/hr, Pankaj n ml INJ 00 Infuse 1,000 mL over: 13.3 hr, Route: IV, Dosing Weight 147.909 kg, Total Volume: 1,000, Start date: 03/16/17 17:43:00 SEAT JOINER CHAINSTITCH, Duration: 30 day, Stop date: 04/15/17 17:42:00 SEAT JOINER CHAINSTITCH Lovenox 2016-05 No Notes: Memoria 05-16 Nurse to l 21:10: ensure Noel 00 documentat ion of patient education per [facility] ation policy. (Same as: Lovenox) carvedilol 2015-05 [...] Refill(s) Amlodipine 2015-05 No Notes: Memor ia 05-11 (Same as: l 14:00: Norvasc) carvedilol 2015-05 No Notes: Memor ia 05-11 Give with l 02:00: food. Noel 00 (Same As: Coreg) Amiodarone 2015-05 No Notes: Memor ia 05-10 (Same as: l 22:00: Cordarone) Sodium 2015-05 No 250 mL, Memoria Chloride 05-10 Route: l 0.9% IV 20:01: IVPB, [place] 00 Start date: 03/10/16 15:01:00 CDT, Duration: 30 day, Stop date: 04/09/16 14:00:00 SEAT JOINER CHAINSTITCH, PRN Line Flush BD Normal 2015-05 No [...] Duration: 30 day, Stop date: 04/07/16 21:00:00 SEAT JOINER CHAINSTITCH atorvastati 2015-05 No Notes: Kaz david n 05-10 (Same as: l 02:00: Lipitor) Alprazolam 2015-05 No Notes: Memor ia 0.5 MG Oral 05-10 With food l Tablet 02:00: or milk (Same as: Xanax) Senokot 2015-05 No Notes: Memoria 05-10 (Same as: l 02:00: Senokot) Colchicine 2015-05 No 0.6 mg, 1 Me moria 0.6 MG Oral 05-10 tab, l Tablet 00:58: Route: PO, Jessica nn 00 Drug form: TAB, BID, Dosing Weight 132.727, kg, PRN Shortness of breath, Start date: 03/09/16 19:58:00 CDT, Duration: 30 day, Stop date: 04/08/16 19:57:00 SEAT JOINER CHAINSTITCH 200 ACTUAT 2015-05 No Notes: Memor ia Albuterol 05-10 Same as: l 0.09 00:58: Combivent Noel MG/ACTUAT / 00 Respimat Ipratropium WASTE: [place] Aerosol - 0.018 Return to MG/ACTUAT Pharmacy Metered Dose Inhaler [Combivent] acetaminoph 2015-05 No Notes: Kaz david en-hydrocod 05-10 (Same as: l one 325 00:08: [place] mg-5 mg 325/5) Do oral tablet not [...] tab, PO, l tablet 00:37: Daily, # [place] 00 90 tab, 1 Refill(s) losartan Yes 100 mg = 1 Mem oria 100 mg oral 9-10 tab, PO, l tablet 00:37: Daily, # Noel 00 90 tab, 1 Refill(s) Alprazolam Yes 0.5 mg = 1 M emoria 0.5 MG Oral 9-10 tab, PO, l Tablet 00:37: Bedtime, # Jessica nn 00 30 tab, 0 Refill(s) Albuterol No Notes: Memori a 0.833 MG/ML 01-16 (Same as: l / 23:01: Duoneb) [place] Ipratropium 00 [place] 0.167 MG/ML Inhalant Solution [DuoNeb] Nitroglycer No Notes: Kaz david in 0.4 MG 01-16 (Same l Sublingual 23:01: as:Nitroqu H ermann Tablet 00 ick, Nitrostat) "Do Not Crush" Sublingual tablet Enoxaparin No Notes: Memor ia 01-16 (Same as: l 23:00: Lovenox) [place] 00 Docusate No Notes: Memoria 01-16 (Same as: l 22:59: Colace) Noel 00 (Do Not Crush) Acetaminoph No Notes: Do M emoria en 01-16 not exceed l 22:59: 4 gm/day. [place] 00 (Same as: Tylenol) Ondansetron No Notes: Kaz david 01-16 (Same as: l 22:59: Zofran) Noel 00 MEDICATION WASTE Product Size: 4 mg Product Wasted: ___ mg Morphine No Notes: Memoria 01-16 (Same l 22:59: as:MORPhin Noel 00 e Sulfate) Acetaminoph No Notes: Kaz david en 325 MG / 01-16 (Same as: l Hydrocodone 22:59: [place] Jessica nn Bitartrate 00 325/5) Do 5 MG Oral not exceed Tablet 4gm/day of acetaminop hen. Lasix No Notes: Memoria 01-16 (Same as: l 22:41: Lasix) [place] 00 MEDICATION WASTE Product Size: 40 mg Product [...] PO, l Oral 22:38: BID, X 10 [place] Capsule day, # 20 [Macrobid] cap, 0 Refill(s) Rocephin No Notes: Memoria 19 (Same As: l 22:12: Rocephin). Use with 100 mL NS and infuse over 30 min MEDICATION WASTE Product Size: 1000 mg Product Wasted: ___ mg Keflex 2014-05 No 500 mg, Memoria 2-16 Route: PO, l 22:14: Drug form: [place] 00 CAP, ABXQ6H, Dosing Weight 130.004, kg, Start [...] 9:00:00 morphine 2014-05 No Notes: Memoria Sulfate -14 (Same l 04:29: as:MORPhin e Sulfate) Senokot [...] 2-13 tab, l Tablet 15:00: Route: PO, Jesscia nn 00 Drug form: TAB, Daily, Dosing Weight 130.004, kg, Start date: 04/21/15 9:00:00, Duration: 30 day, Stop date: 05/20/15 9:00:00 Furosemide 2014-05 No Notes: Memor ia 40 MG Oral 2-13 (Same as: l Tablet 15:00: Lasix) May cause GI upset. Give with food or milk. Lovenox 2014-05 No Notes: Memoria 2-13 (Same as: l 15:00: Lovenox) Noel metoprolol 2014-05 No Notes: Memor ia 2-13 (Same as: l 15:00: Toprol XL) Noel May split tab, but do not crush. gabapentin 2014-05 No Notes: Memor ia 300 MG Oral 2-13 (Same as: l Capsule 14:00: Neurontin) Herm pinky Hydralazine 2014-05 No Notes: Kaz david 2-13 (Same as: l 14:00: Apresoline [place] ) May interfere w/enteral feedings Take With Food Lyrica 2014-05 No Notes: Memoria 2-13 Same as l 07:35: Lyrica [place] 00 200 ACTUAT 2014-05 No Notes: Memor ia Albuterol 2-13 Same as: l 0.09 07:30: Combivent Noel MG/ACTUAT / 00 Respimat Ipratropium [place] 0.018 MG/ACTUAT Metered Dose Inhaler [Combivent] Alprazolam 2014-05 No Notes: Memor ia 2-13 With food l 07:30: or milk [place] (Same as: Xanax) nitroglycer 2014-05 No Notes: 1 Me moria in 2% 2-13 gram is l topical 07:12: approximat Herm pinky ointment 00 elio 1 inch of nitroglyce rin ointment (20 mg NTG per gram) (Same as:Nitro-B id) Furosemide 2014-05 Yes 40 mg = 1 Me moria 40 MG Oral 2-13 tab, PO, l Tablet 07:11: BID, 0 Noel 00 Refill(s) SENOKOT-S 2014-05 Yes 2 tab, PO, Me moria 2-13 Bedtime, 0 l 07:11: Refill(s) [place] amLODIPine 2014-05 Yes 10 mg = 1 Me moria 10 mg oral 2-13 tab, PO, l tablet 07:11: Daily, 0 [place] 00 Refill(s) Amoxicillin 2014-05 No 1 tab, PO, Memoria 875 MG / 2-13 BID, # 20 l Clavulanate 07:11: tab, 0 Herm pinky 125 MG Oral 00 Refill(s) Tablet Protonix 2014-05 No Notes: Memoria 2-13 Tablet l 07:11: should not [place] 00 be chewed or crushed. (Same as: Protonix) Hydralazine 2014-05 Yes 50 mg, PO, Memoria 2-13 TID, 0 l 07:11: Refill(s) [place] 00 Colchicine 2014-05 No 0.6 mg = 1 M emoria 0.6 MG Oral 2-13 tab, PO, 0 l Tablet 07:11: Refill(s) Pankaj n 00 pregabalin 2014-05 Yes 50 mg = 1 Me moria 50 MG Oral 2-13 cap, PO, l Capsule 07:11: PRN, daily Herm pinky [Lyrica] 00 PRN, 0 Refill(s) Sodium 2014-05 No 250 mL, Memoria Chloride 06-22 Route: l 0.9% IV 07:09: IVPB, [place] 00 Start date: 04/21/15 1:09:00, Duration: 30 day, Stop date: 05/21/15 1:08:00, PRN Line Flush BD Normal 2014-05 No Notes: Memori a Saline 06-22 (Same as: l Flush 07:09: BD [place] 00 Posiflush) acetaminoph 2014-05 No Notes: Do [...] / 02-02 (Same as: l Hydrocodone 21:30: [place] Jessica nn Bitartrate 00 325/5) Do 5 MG Oral not exceed Tablet 4gm/day of [[place] acetaminop 5/325] hen. Saline No Notes: Memoria Flush 0.9% 02-02 (Same as: l 21:18: BD [place] 00 Posiflush) Barium No Notes: Memoria Sulfate 02-02 Same as l 21:18: Readi-Cat 2 Morphine No Notes: Memoria 02-02 (Same [...] Memoria 05-30 (Same As: l 18:00: Kefurox, Noel 00 Zinacef) Hydralazine 2013-05 No Notes: Kaz david [...] (Same as: l MEQ 12:48: K-Dur 20) [place] Extended 00 "Do Not Release Crush" Tablet [...] 0-25 NOT break, l 14:00: chew or Noel 00 open capsules for administra tion. 120 ACTUAT 2013-05 Yes 2 Memoria Budesonide 0-25 inhalation l 0.16 13:15: , [place] MG/ACTUAT / 00 INHALATION formoterol , Q12H, [...] Memoria 0-24 (Same as: l 22:00: Lasix) [place] 00 May cause GI upset. Give with food or milk. Diovan 2013-05 No Notes: Memoria 0-24 Same as l 18:17: Diovan [place] 00 homatropine 2013-05 No Notes: Kaz david -hydrocodon 0-24 (Same as: l e 15:10: Hycodan, Noel 00 Hydromet) 120 ACTUAT 2013-05 No Notes: Memor ia Budesonide 0-24 (Same as: l 0.16 15:09: Symbicort) [place] MG/ACTUAT / 00 formoterol fumarate 0.0045 MG/ACTUAT [...] as: l / 15:05: Duoneb) Ipratropium 18 [place] 0.167 MG/ML Inhalant Solution [DuoNeb] Lasix 2013-05 [...] 0-22 (Same as: l 14:06: MgSO4) Noel 00 Hydralazine 2013-05 No Notes: Kaz david Hydrochlori 0-22 (Same as: l de 50 MG 02:00: Apresoline [place] Oral Tablet 00 ) May interfere w/enteral feedings Take With Food Tessalon 2013-05 No Notes: Memoria Perles 0-21 (Same As: l 22:00: Tessalon Noel 00 Perles) "Do Not Crush" Budesonide 2013-05 No Notes: Memor ia 0.25 MG/ML 0-21 (Same As: l Inhalant 14:00: Pulmicort) [place] Solution 00 [Pulmicort] Protonix 2013-05 No Notes: Memoria 0-21 Tablet l 14:00: should not Noel 00 be chewed or crushed. (Same as: Protonix) Allopurinol 2013-05 No Notes: Kaz david 0-21 (Same as: l 14:00: Zyloprim) [place] 00 Magnesium 2013-05 No 2 gm, 50 Kaz david Sulfate 0-21 mL, Route: l 12:19: IVPB, Drug [place] 00 form: INJ, ONCE, Dosing Weight 127.1, [...] 0-21 Route: PO, l 02:00: Drug form: Noel 00 TAB, Bedtime, Dosing Weight 126.3, kg, Start [...] l / 02:00: Duoneb) Noel Ipratropium 00 [place] 0.167 MG/ML Inhalant Solution [DuoNeb] Coreg 2013-05 No Notes: Memoria 0-21 Give with l 02:00: food. [place] 00 (Same As: Coreg) Acetylcyste 2013-05 No [...] david 0-20 (Same As: l 23:00: Rocephin). Noel 00 Use with 100ml NS mini-bag PLUS and infuse over 30 min Robitussin- 2013-05 No Notes: Kaz david AC oral 0-20 (Same As: l syrup 22:24: Robitussin Pankaj n 00 AC) Albuterol 2013-05 No Notes: Memori a 0.833 MG/ML 0-20 (Same as: l / 22:24: Duoneb) [place] Ipratropium 00 [place] 0.167 MG/ML Inhalant Solution [DuoNeb] Acetylcyste 2013-05 No 600 mg, 3 M emoria ine 200 0-20 mL, Route: l MG/ML 22:10: PO, Drug Noel Inhalant 00 form: Solution SOLN, BID, Dosing Weight 126.3, kg, Priority: NOW, Start date: 02/26/14 17:10:00, Duration: 1 day, Stop date: 02/27/14 17:00:00 Amiodarone 2013-05 No 200 mg, Kaz david 0-20 Route: PO, l 22:00: Drug form: [place] 00 TAB, BID, Dosing Weight 126.3, kg, Start date: 02/26/14 17:00:00, Duration: 30 day, Stop date: 03/28/14 9:00:00 carvedilol 2013-05 No 12.5 mg, Mem oria 0-20 Route: PO, l 22:00: Drug form: [place] 00 TAB, BID, Dosing Weight 126.3, kg, [...] 0-20 With food l 18:23: or milk Noel 00 (Same as: Xanax) 200 ACTUAT 2013-05 No Notes: Memor ia Albuterol 0-20 Same as: l 0.09 18:23: Combivent [place] MG/ACTUAT / 00 Respimat Ipratropium [place] 0.018 MG/ACTUAT Metered Dose Inhaler [Combivent] Cordarone 2013-05 No Notes: Memori a 0-20 (Same as: l 18:10: Cordarone) [place] 00 Coreg 2013-05 No Notes: Memoria 0-20 Give with l 18:09: food. Noel 00 (Same As: Coreg) atorvastati 2013-05 Yes 40 mg = 1 M emoria n 40 mg 0-20 tab, PO, l oral tablet 09:14: Bedtime, 0 [place] 00 Refill(s) carvedilol 2013-05 Yes 12.5 mg = Me moria 12.5 mg 0-20 1 tab, PO, l oral tablet 09:14: BID, 0 Herm Refill(s) allopurinol 2013-05 Yes 100 mg = 1 Memoria 100 mg oral 0-20 tab, PO, l tablet 09:14: Daily, 0 [place] 00 Refill(s) AMIODarone 2013-05 Yes 200 mg = 1 M emoria 200 mg oral 0-20 tab, PO, l tablet 09:14: BID, 0 [place] 00 Refill(s) Sodium 2013-05 No 250 mL, Memoria Chloride 0-20 Route: l 0.9% IV 07:42: IVPB, Noel 00 Start date: 02/26/14 2:42:00, Duration: 30 day, [...] Notes: Memoria 0-20 (Same l 07:34: as:MORPhin Noel 00 e Sulfate) aspirin 2013-05 No Notes: Memoria 0-20 Take with l 05:28: food. Morphine 2013-05 No Notes: Memoria 0-20 (Same l 04:27: as:MORPhin Noel 00 e Sulfate) atorvastati Yes 40 mg = 2 M emoria n 20 mg - tab, PO, l oral tablet 13:00: Bedtime, # [place] 00 60 tab, 0 Refill(s) AMIODarone Yes [...] (Same as: l MG Oral 15:38: Colace) Noel Capsule 00 (Do Not [Colace] Crush) Coreg No Notes: Memoria 01-27 Give with l 14:00: food. [place] 00 (Same As: Coreg) Cordarone No Notes: Memori a 01-27 (Same as: l 14:00: Cordarone) Noel Magnesium No 2 gm, 50 Kaz david Sulfate 9-20 mL, Route: l 13:07: IVPB, Drug Noel 00 form: INJ, ONCE, Dosing Weight 119.801, kg, Start date: 01/27/14 8:07:00, Duration: 2 hr, Stop date: 01/27/14 8:07:00 Lipitor No Notes: Memoria 01-27 (Same As: l 02:00: Lipitor) Noel Magnesium No 2 gm, 50 Kaz david Sulfate 9-20 mL, Route: l 00:17: IVPB, Drug Noel 00 form: INJ, ONCE, Dosing Weight 119.801, [...] moria 01-26 "Recommend l 21:29: ation: Use [place] 00 an in-line filter during administra tion for continuous infusions to reduce the incidence of phlebitis" (Same as: Cordarone) Pradaxa No Notes: DO Memor ia 01-26 NOT break, l 15:41: chew or Noel 00 open capsules for administra tion. Aspirin 81 No Notes: Do Me moria MG Enteric 01-26 not crush l Coated 14:00: or chew. Noel Tablet 00 (Same As: Ecotrin) gabapentin No Notes: Memor ia 400 MG Oral 01-26 (Same as: l Capsule 14:00: Neurontin) Herm pinky [Neurontin] 00 Digoxin No Notes: Memoria 01-26 Take on an l 14:00: Empty [place] Stomach (Same as: Lanoxin) Coreg No Notes: Memoria 01-26 Give with l 14:00: food. Noel 00 (Same As: Coreg) Nitroglycer No Notes: 1 Me moria in 0.02 01-26 gram is l MG/MG 13:00: approximat Pankaj n Topical 00 elio 1 inch Ointment of nitroglyce rin ointment (20 mg NTG per gram) (Same as:Nitro-B id) Protonix No Notes: Memoria 01-26 Tablet l 12:30: should not Noel be chewed or crushed. (Same as: Protonix) tramadol No Notes: Not Mem oria hydrochlori 01-26 to exceed l de 50 MG 11:56: 400mg/day. [place] Oral Tablet 00 (Same As: Ultram) Alprazolam No Notes: Memor ia 01-26 With food l 11:55: or milk [place] (Same as: Xanax) Morphine No Notes: Memoria 01-26 (Same as: l 11:52: MORPhine [place] 00 Sulfate) Acetaminoph No Notes: Kaz david en 325 MG / 01-26 (Same as: l Hydrocodone 11:52: [place] Jessica nn Bitartrate 00 325/5) Do 5 MG Oral not exceed Tablet 4gm/day of [[place] acetaminop 5/325] hen. Lasix No Notes: Memoria 01-26 (Same as: l 11:51: Lasix) [place] 00 Zofran No Notes: Memoria 01-26 (Same as: l 11:51: Zofran) [place] Tylenol No Notes: Do Memor ia 01-26 not exceed l 11:51: 4 gm/day. [place] 00 (Same as: Tylenol) Hydralazine No Notes: [...] Daily, # l 10:22: 30 tab, 0 Refill(s) gabapentin Yes PO, BID, 0 M emoria 400 MG Oral 01-26 Refill(s) l Capsule 10:22: Noel [Neurontin] 00 tramadol Yes PO, Q12H, Kaz david hydrochlori 01-26 Pain, 0 l de 50 MG 10:22: Refill(s) Herm pinky Oral Tablet 00 200 ACTUAT Yes INHALER, Mem oria Albuterol 01-26 SOB, 0 l 0.09 10:22: Refill(s) [place] MG/ACTUAT / 00 Ipratropium [place] 0.018 MG/ACTUAT Metered Dose Inhaler [Combivent] Digoxin No 125 Memoria 01-26 microgram, l 10:22: PO, Daily, [place] 00 0 Refill(s) carvedilol No 25 mg = 1 Me moria 25 MG Oral 19 tab, PO, l Tablet 10:22: BID, # 180 Jessica nn [Coreg] 00 tab, 0 Refill(s) [place] Yes PO, PRN, Memoria 10/325 oral 3-13 Substituti l tablet 20:45: on [place] 32 Allowed, Maintenanc e Protonix 40 Yes PO, Daily, Memoria mg oral 3-13 Substituti l enteric 20:45: on Allowed Herm pinky coated 03 tablet enalapril 5 Yes PO, BID, Me moria mg oral 3-13 Substituti l tablet 20:44: on Allowed Jessica nn 18 Coumadin 4 Yes PO, Daily, M emoria mg oral 3-13 Substituti l tablet 20:43: on Allowed Jessica nn 21 Omnipaque Yes Arnaldo R 100 mL, M emoria 300 3-04 [place] 400 ml/hr, l 18:00: Route: IV, [place] Drug Form: SOLN, ONCE, Start date: 07/11/12 12:00:00, Stop date: 07/11/12 12:00:00 Omnipaque Yes Arnaldo R 100 mL, M emoria 300 3-04 [place] 400 ml/hr, l 17:40: Route: IV, [place] Drug Form: SOLN, ONCE, Start date: 07/11/12 [...] moria 0-20 [place] tab, l 00:49: m [place] Route: PO, Herm pinky 00 [...] 30 day, Stop date: 03/27/12 16:30:00 acetaminoph 2011-05 No Bhagwat 1 tab, M emoria en-hydrocod [...] 0.8 mL, l 06:00: m [place] Route: [place] 00 SUB-Q, Drug form: INJ, [id number], Start date: 02/26/12 1:00:00, Duration: 30 day, [...] l sublingual 05:46: m [place] Route: SL, [place] tablet 00 Drug form: TAB, Q5Min, PRN [...] Duration: 30 day, Stop date: 03/26/12 23:44:00 [place] Yes Steffi 1 tab, PO, Kaz david 10/325 oral 7 Randee Q6H, PRN, l tablet 18:18: Judith-Pr 40 tab, He rmann 59 ashad for pain, Substituti on Allowed, Soft Stop, TAB Medrol Yes Steffi As Memoria Dosepak 4 731 Randee directed l mg Tablet 18:17: Judith-Pr on package Noel 13 ashad instructio ns, PO, Daily, 1 Pack, Substituti on Allowed, Take with or without foodTake with or without food [place] 5/325 No Steffi 1 tab, Me moria oral tablet 730 Randee Route: PO, l 21:00: Judith-Pr Drug Form: H ermann 00 ashad TAB, Q4H, PRN Pain Score 4-6, Start date: 12/07/11 16:00:00, Duration: 30 day, Stop date: 01/06/12 15:59:00 magnesium No Rhea 150 ml, Kaz david citrate 12-05 Ana Route: PO, l 15:06: Francisco Javier Drug Form: Herm pinky 00 LIQ, ONCE, Start date: 12/06/11 10:06:00, Stop date: 12/06/11 10:06:00 heparin No Rhea 7,500 Memoria 5000 7 Ana unit, 1.5 l units/mL 21:00: Francisco Javier mL, Route: Noel injectable 00 SUB-Q, solution Drug form: INJ, Q8H, Start date: 12/05/11 16:00:00, Duration: 30 day, Stop date: 01/04/12 8:00:00 senna 2011- No Iva Pankaj 8.6 mg, 1 M emoria 12-04 tab, l 14:00: Route: PO, [place] Drug Form: TAB, BID, Start date: 12/05/11 9:00:00, Duration: 30 day, Stop date: 01/03/12 17:00:00 Colace 100 2011- No Iva Pankaj 100 mg, 1 Memoria mg oral 12-04 cap, l capsule 14:00: Route: PO, Herm pinky 00 Drug form: CAP, BID, Start date: 12/05/11 9:00:00, Duration: 30 day, Stop date: 01/03/12 17:00:00 NS 1,000 mL No Rhea 1,000 mL, Memoria 12-04 Ana Rate: 75 l 13:34: Francisco Javier ml/hr, Noel 00 Infuse over: 13.3 hr, Route: IV, [...] Lovy mL, Route: l 11:00: IV, Drug [place] 00 form: INJ, Q6H, Start date: 12/05/11 6:00:00, Duration: 12 doses or times, Stop date: 12/08/11 0:00:00 magnesium 2011-0 No Adan 2 gm, 50 Me moria sulfate 12-04 Lovy mL, Route: l 10:00: IVPB, Drug Noel 00 form: INJ, ONCE, Start date: 12/05/11 5:00:00, Stop date: 12/05/11 5:00:00 Dilaudid 2011- No Steffi 0.5 mg, Kaz david 12-04 [...] 0.1 mL, l 04:51: Francisco Javier Route: [place] 00 IVP, Drug form: INJ, Q2MIN, PRN Narcotic Reversal, Start date: 12/04/11 23:51:00, Duration: 8 doses or times, Stop date: Limited # of times flumazenil No Rhea 0.2 mg, 2 M emoria 12-04 Ana mL, Route: l 04:51: Francisco Javier IVP, Drug Jessica nn form: INJ, PRN, PRN Benzodiaze pine Reversal, Initial dose, Start date: 12/04/11 23:51:00, Duration: 30 day, Stop date: 01/03/12 23:50:00 niCARdipine No Anayeli 0.25 mg, Memoria 7-28 Lexie 0.1 mL, l 04:51: Route: Noel 00 IVP, Drug form: INJ, Q5Min, PRN Elevated BP, Start date: 12/04/11 23:51:00, Duration: 4 doses or times, Stop date: 12/05/11 4:00:00 NS + KCL 2011-0 No Rhea 1,000 mL, Mem oria 20mEq/L 7 Ana Rate: 100 l 1000ml 04:15: Francisco Javier ml/hr, Pankaj n (Premix) 00 Infuse 1,000 mL over: 10 hr, Route: IV, Dosing Weight 119.091 kg, Total Volume: 1,000, Start date: 12/03/11 23:15:00, Duration: 30 day, Stop date: 01/02/12 23:14:00 Humulin N 2011-0 No Adan 10 unit, Me moria 7- Lovy 0.1 mL, l 22:30: Route: Noel 00 SUB-Q, Drug form: INJ, ONCE, Start date: 12/03/11 17:30:00, Stop date: 12/03/11 17:30:00 Humulin R 2011-0 No Adan 7 unit, Mem oria 100 7-26 Lovy 0.07 mL, l units/mL 22:20: Route: Noel injectable 00 SUB-Q, solution Drug [...] Lovy 0.04 mL, l units/mL 22:17: Route: Noel injectable 00 SUB-Q, solution Drug form: SOLN, Sliding Scale, PRN Blood Glucose Results, Start date: 12/03/11 17:17:00, Duration: 30 day, Stop date: 01/02/12 17:16:00 Humulin R 2011-0 No Adan 2 unit, Mem oria 100 12-02 Lovy 0.02 mL, l units/mL 22:16: Route: Noel injectable 00 SUB-Q, solution Drug form: SOLN, Sliding Scale, PRN Blood Glucose Results, Start date: 12/03/11 17:16:00, Duration: 30 day, Stop date: 01/02/12 17:15:00 Humulin R No Adan 1 unit, Mem oria 100 - Lovy 0.01 mL, l units/mL 22:15: Route: [place] injectable 00 SUB-Q, solution Drug form: SOLN, [...] insulin No Adan 10 unit, Kaz david 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 12-02 Lovy 0.1 mL, l H 17:38: Route: Noel SUB-Q, Drug form: INJ, ONCE, Start date: 12/03/11 12:38:00, Stop date: 12/03/11 12:38:00 methylPREDN No Adan 60 mg, 1.5 Memoria ISolone 12-02 Lovy mL, Route: l 00:30: IV, Drug form: INJ, Daily, Start date: 12/02/11 19:30:00, Duration: 2 doses or times, Stop date: 12/03/11 9:00:00 torsemide 2011-0 No Adan 10 mg, 1 Me moria 7-25 Lovy tab, l 14:00: Route: PO, Noel Drug form: TAB, Daily, Start date: 12/02/11 [...] Lovy tab, l 14:00: Route: PO, Noel Drug form: ECTAB, Daily, Start date: 12/02/11 9:00:00, Duration: 30 day, Stop date: 12/31/11 9:00:00 Combivent 2011-0 No Adan 2 Memori a inhalation 7-25 Lovy inhalation l aerosol 14:00: , Route: Pankaj n with 00 INHALER, adapter Drug Form: AERO/A, Daily, Start date: 12/02/11 9:00:00, Duration: 30 day, Stop date: 12/31/11 9:00:00 lisinopril 2011-0 No Adan 10 mg, 1 M emoria 7-25 Lovy tab, l 02:00: Route: PO, Noel Drug form: TAB, BID, Start date: 12/01/11 [...] Route: PO, Noel 00 Drug form: TAB, QPM, Start date: 12/01/11 21:00:00, Duration: 30 day, Stop date: 12/31/11 17:00:00 promethazin 2011- No Adan 25 mg, 1 Memoria e 7-25 Lovy tab, l 00:21: Route: PO, Drug form: TAB, Q12H, PRN as needed for nausea/vom iting, Start date: 12/01/11 19:21:00, Duration: 30 day, Stop date: 12/31/11 19:20:00 ALPRAZOLam No Adan 0.5 mg, 1 Memoria 7-25 Lovy tab, l 00:21: Route: PO, Drug form: TAB, Daily, PRN as needed for anxiety, Start date: 12/01/11 19:21:00, Duration: 30 day, Stop date: 12/31/11 19:20:00 [place] No Steffi 1 tab, Memoria 10/325 oral 7-25 Randee Route: PO, l tablet 00:20: Judith-Pr Drug Form: ashad TAB, Q6H, PRN as needed for pain, Start date: 12/01/11 19:20:00, Duration: 30 day, Stop date: 12/31/11 19:19:00 temazepam No Adan 15 mg, 1 Me moria 7-25 Lovy cap, l 00:15: Route: PO, Drug form: CAP, Bedtime, PRN Insomnia, Start date: 12/01/11 19:15:00, Duration: 30 day, Stop date: 12/31/11 19:14:00 atorvastati Yes Adan 10 mg, 1 Memoria n 10 mg 7-24 Lovy tab, PO, l oral tablet 22:26: Daily, 30 H ermann 28 tab, Substituti on Allowed, TAB [place] No Steffi 1 tab, PO, Kaz david 10/325 oral 7-24 Randee Q6H, PRN, l tablet 22:26: Judith-Pr 24 tab, He rmann 11 ashad for pain, Substituti on Allowed, Soft Stop pantoprazol No Adan 40 mg, 1 Memoria e 40 mg 7-24 Lovy tab, PO, l oral 22:24: Daily, 30 Noel enteric 40 tab, coated Substituti tablet on Allowed, ECTAB gabapentin Yes Adan 600 mg, 1 Memoria 600 mg oral 7-24 Lovy tab, PO, l tablet 22:24: TID, 270 [place] 23 tab, Substituti on Allowed Protonix 40 Yes Yury R 40 mg, 1 Memoria mg oral 4-20 Anderson tab, PO, l enteric 18:12: Daily, 30 Jessica nn coated 44 tab, 1, 1, tablet Substituti on Allowed, ECTAB Coreg 3.125 Yes Yury R 3.125 mg, Memoria mg oral 4-20 Anderson 1 tab, PO, l tablet 18:12: BID, 60 [place] 14 tab, 1, 1, Substituti on Allowed, TAB [place] 5/325 Yes Yury R 1 tab, PO, Memoria oral tablet 4-20 Anderson Q4-6H, l 18:04: PRN, 30 Noel 08 tab, as needed for pain, Substituti on Allowed, Maintenanc e Flagyl 500 Yes Yury R 500 mg, 1 Memoria mg oral 4-20 Anderson tab, PO, l tablet 18:03: Q8H, 39 [place] 45 tab, Substituti on Allowed, TAB Cipro 500 Yes Yury R 500 mg, 1 Memoria mg oral 4-20 Anderson tab, PO, l tablet 18:03: Q12H, 26 [place] 19 tab, Substituti on Allowed, TAB Cipro No Yury R 400 mg, Mem oria 4-20 Anderson 200 mL, l 02:00: Route: [place] 00 IVPB, Drug form: INJ, Q12H, Start date: 08/27/11 21:00:00, Duration: 30 day, Stop date: 09/26/11 9:00:00 Flagyl No Yury R 500 mg, Me moria 4-19 [place] 100 mL, l 21:00: Route: Noel 00 IVPB, Drug form: INJ, Q8H, Start date: 08/27/11 16:00:00, Duration: 30 day, Stop date: 09/26/11 8:00:00 Lyrica 2011- No Yury R 75 mg, 1 M emoria -19 [place] cap, l 14:00: Route: PO, Drug form: CAP, Daily, Start date: 08/27/11 9:00:00, Duration: 30 day, Stop date: 09/25/11 9:00:00 lisinopril No Yury R 10 mg, 2 Memoria -19 Anderson tab, l 14:00: Route: PO, Drug form: TAB, BID, Start date: 08/27/11 9:00:00, Duration: 30 day, Stop date: 09/25/11 17:00:00 gabapentin 2011-0 No Yury R 600 mg, 2 Memoria 600 mg oral 08-26 Anderson cap, l tablet 14:00: Route: PO, Drug form: CAP, TID, Start date: 08/27/11 9:00:00, Duration: 30 day, Stop date: 09/25/11 17:00:00 Coreg No Yury R 3.125 mg, M emoria - [place] 1 tab, l 14:00: Route: PO, [...] No Yury R 80 mg, 1 Memoria -19 Justin tab, l 02:40: Route: PO, Drug form: TAB, BID, Start date: 08/26/11 21:40:00, Duration: 30 day, Stop date: 09/25/11 17:00:00 ipratropium 2011- No Arnaldo R 0.5 mg, Memoria 0.02% 4-19 Morrison 2.5 mL, l inhalation 01:00: Route: Jessica nn solution 00 NEB, Drug form: SOLN, Q4H, Start date: 08/26/11 20:00:00, Duration: 30 day, Stop date: 09/25/11 16:00:00 albuterol No Arnaldo R 2.49 mg, 3 Memoria 0.083% 4-19 Morrison mL, Route: l inhalation 01:00: NEB, Drug He rmann solution 00 form: SOLN, Q4H, Start date: 08/26/11 20:00:00, Duration: 30 day, Stop date: 09/25/11 16:00:00 Restoril 2011- No Yury R 15 mg, 1 Memoria 4-19 Anderson cap, l 00:55: Route: PO, Drug form: CAP, Bedtime, PRN Sleep, Start date: 08/26/11 19:55:00, Duration: 30 day, Stop date: 09/25/11 19:54:00 [place] 5/325 No Yury R 1 tab, Memoria oral tablet 4-19 Justin Route: PO, l 00:55: Drug Form: TAB, Q4H, PRN Pain, Start date: 08/26/11 19:55:00, Duration: 30 day, Stop date: 09/25/11 19:54:00 insulin 2011- No Yury R 4 unit, M emoria aspart 4-19 Justin 0.04 mL, l 00:38: Route: Noel 00 SUB-Q, Drug form: SOLN, Bedtime, PRN Blood Glucose Results, Start date: 08/26/11 19:38:00, Duration: 30 day, Stop date: 09/25/11 19:37:00 Dextrose 2011- No Yury R 12.5 gm, Memoria 50% Syringe 4-19 Anderson 25 mL, l 00:38: Route: [place] IVP, Drug Form: INJ, PRN, PRN Blood Glucose Results, Start date: 08/26/11 19:38:00, Duration: 30 day, Stop date: 09/25/11 19:37:00 glucagon No Yury R 1 mg, Me moria 4-19 Justin Route: IM, l 00:38: Drug form: Noel 00 PDR/INJ, PRN, PRN Blood Glucose Results, Start date: 08/26/11 19:38:00, Duration: 30 day, Stop date: 09/25/11 19:37:00 ALPRAZOLam No Yury R 0.5 mg, 1 Memoria -19 Justin tab, l 00:36: Route: PO, Drug form: TAB, Daily, PRN as needed for anxiety, Start date: 08/26/11 19:36:00, Duration: 30 day, Stop date: 09/25/11 19:35:00 levofloxaci No Yury R 750 mg, Memoria n -18 [place] 150 mL, l 23:00: Route: IV, Drug form: SOLN, Q24H, Start date: 08/26/11 18:00:00, Duration: 30 day, Stop date: 09/24/11 18:00:00 cefepime No Yury R 1 gm, Me moria -18 Justin Route: IV, l 23:00: Daily, Noel 00 Start date: 08/26/11 18:00:00, Duration: 30 day, Stop date: 09/24/11 18:00:00 BD No Arnaldo R 15 mL, Memoria Posiflush 08-25 Morrison Route: l SF 22:34: IVP, Drug Form: INJ, PRN, PRN Line Flush, Start date: 08/26/11 17:34:00, Duration: 30 day, Stop date: 09/25/11 17:33:00 Jantoven 4 No 4 mg, 1 Kaz david mg oral 4-18 tab, PO, l tablet 22:13: QPM, 30 Noel 52 tab, Substituti on Allowed, TAB Lyrica 75 Yes Yury R 75 mg, 1 Memoria mg oral 4-18 Anderson cap, PO, l capsule 22:13: Daily, 90 Jessica nn 13 cap, Substituti on Allowed, CAP sotalol 80 2011- Yes Yury R 80 mg, 1 Memoria mg oral 4-18 Anderson tab, PO, l tablet 22:12: BID, 180 [place] 43 tab, Substituti on Allowed, TAB omeprazole [...] tab, PO, l tablet 22:08: Daily, 30 Pankaj n 06 tab, Substituti on Allowed, TAB Combivent Yes 2 puff, Memor ia inhalation 18 INHALER, l aerosol 22:07: Daily, 14 Jessica [...] 4-18 Morrison tab, l 22:03: Route: PO, [place] Drug form: TAB, Q4H, PRN Pain, Start date: 08/26/11 17:03:00, Duration: 30 day, Stop date: 09/25/11 17:02:00 Sodium 2011-0 No Arnaldo R 1,000 mL, Me moria Chloride 4-18 Morrison Rate: 70 l 0.9% IV 21:59: ml/hr, Noel 1,000 mL 00 Infuse over: 14.3 hr, [...] 30 day, Stop date: 08/05/11 9:00:00 Xanax 2012-0 No Evaristo J 0.5 mg, 1 Kaz david 2-28 [place] tab, l 03:00: Route: PO, [place] 00 Drug form: TAB, Bedtime, Start date: 07/06/11 21:00:00, Duration: 30 day, Stop date: 08/04/11 21:00:00 Lipitor 2012-0 No Oscar 10 mg, 1 Kaz david 2-28 Nien-Diane tab, l 03:00: Darian Route: PO, Noel 00 Drug form: TAB, Bedtime, Start date: 07/06/11 21:00:00, Duration: 30 day, Stop date: 08/04/11 21:00:00 niacin 500 2011-0 No Oscar 500 mg, 1 Memoria mg oral 2-28 Nien-Diane tab, l tablet, 03:00: Darian Route: PO, Herm pinky Drug form: release ERTAB, Bedtime, Start date: 07/06/11 21:00:00, Duration: 30 day, Stop date: 08/04/11 21:00:00 Coumadin 2012-0 No Evaristo J 4.5 mg, Mem oria -27 [place] 1.5 tab, l 23:00: Route: PO, Noel Drug form: TAB, Q5PM, Start date: 07/06/11 17:00:00, Duration: 30 day, Stop date: 08/04/11 17:00:00 [place] 3-6-9 2011- No Oscar [place] Mem oria 1200 mg 2-27 Nien-Diane 3-6-9 1200 l (own med) 23:00: Darian mg (own Jessica nn 00 med), 1,200 mg, Drug form: MISC, Route: PO, TID, 07/06/11 17:00:00, Duration: 30 day, Stop date: 08/05/11 13:00:00 Protonix No Evaristo J 40 mg, 1 Me moria 2-27 [place] tab, l 22:30: Route: PO, Drug form: ECTAB, Before Dinner, Start date: 07/06/11 16:30:00, Duration: 30 day, Stop date: 08/04/11 16:30:00 K-Dur 10 No Oscar 10 mEq, 1 Me moria -27 Nien-Diane tab, l 20:44: Darian Route: PO, Drug form: ERTAB, ONCE, Start date: 07/06/11 14:44:00, Stop date: 07/06/11 14:44:00 Neurontin No Oscar 600 mg, 2 M emoria 2-27 Nien-Diane cap, l 19:32: Darian Route: PO, Drug form: CAP, TID, Start date: 07/06/11 13:32:00, Duration: 30 day, Stop date: 08/05/11 13:00:00 Lasix No Oscar 40 mg, 1 Memori a [...] Evaristo J 80 mg, 1 Me moria 2-27 [place] tab, l 15:00: Route: PO, Noel 00 Drug form: TAB, Q12H, Start date: 07/06/11 9:00:00, Duration: 30 day, Stop date: 08/04/11 21:00:00 DiaBeta 2011-0 No Evaristo J 2.5 mg, 1 Me moria 2-27 [place] tab, l 15:00: Route: PO, Noel 00 Drug form: TAB, TID, Start date: 07/06/11 9:00:00, Duration: 30 day, Stop date: 08/04/11 17:00:00 K-Dur 10 2011-0 No Evaristo J 10 mEq, 1 M emoria - [place] tab, l 15:00: Route: PO, Drug form: ERTAB, Daily, Start date: 07/06/11 9:00:00, Duration: 30 day, Stop date: 08/04/11 9:00:00 Zaroxolyn 2011-0 No Evaristo J 5 mg, 2 Me moria -27 [place] tab, l 15:00: Route: PO, Noel 00 Drug form: TAB, Daily, Start date: 07/06/11 9:00:00, Duration: 30 day, Stop date: 08/04/11 9:00:00 Prinivil 2011-0 No Oscar 10 mg, 1 Mem oria - Nien-Diane tab, l 15:00: Darian Route: PO, Drug form: TAB, Daily, [...] Oscar 4 mg, 4 Me moria PF 2- Nien-Diane mL, Route: l 10:45: Darian IVP, [...] Route: IV, l 10:41: Darian Drug form: [place] 00 PDR/INJ, PRN, PRN Blood Glucose Results, [...] Nien-Diane 0.1 mL, l 10:41: Darian Route: [place] 00 SUB-Q, Drug form: SOLN, Sliding Scale, PRN Blood Glucose Results, Start date: 07/06/11 4:41:00, Duration: 30 day, Stop date: 08/05/11 5:40:00 lactulose No Oscar 20 gm, 30 M emoria 07-06 Nien-Diane mL, Route: l 10:41: Darian PO, Drug [place] 00 form: SYRP, Daily, PRN Constipati on, Start date: 07/06/11 4:41:00, Duration: 30 day, Stop date: 08/05/11 4:40:00 Restoril 2011- No Oscar 30 mg, 1 Mem oria 2- Nien-Diane cap, l 10:41: Darian Route: PO, [place] 00 Drug form: CAP, Bedtime, PRN Sleep, Start date: 07/06/11 4:41:00, Duration: 30 day, Stop date: 08/05/11 4:40:00 Tylenol No Oscar 650 mg, 2 Mem oria 2- Nien-Diane tab, l 10:40: Adrian Route: PO, [place] 00 Drug form: TAB, Q4H, PRN Pain/Fever , Start date: 07/06/11 4:40:00, Duration: 30 day, Stop date: 08/05/11 4:39:00 Sodium No Oscar 250 mL, Memori a Chloride 07-06 Ni-Diane Route: l 0.9% IV 08:53: Darian IVPB, PRN, Line Flush, Start date: 07/06/11 2:53:00, Duration: 30 day, Stop date: 08/05/11 3:52:00 BD Normal No Oscar 10 mL, Kaz david Saline 07-06- Route: l Flush 08:53: Darian IVP, Drug Form: INJ, PRN, PRN Line Flush, Start date: 07/06/11 2:53:00, Duration: 30 day, Stop date: 08/05/11 3:52:00 morphine No Evaristo J 4 mg, Memor ia [facility]ulfate 07-06 [facility] Route: l 04:23: IVP, ONCE, Priority: STAT, Start date: 07/05/11 22:23:00, Stop date: 07/05/11 22:23:00 Niaspan ER Yes 500 mg, 1 Me moria 500 mg oral 2-27 tab, PO, l tablet, 04:07: BID, 60 [place] extended 13 tab, release Substituti on Allowed warfarin 3 Yes 3 mg, 1 Kaz david mg oral 2-27 tab, PO, l tablet 04:06: Daily, 30 Pankaj n 14 tab, Substituti on Allowed, TAB ALPRAZOLam 2012-0 Yes 0.5 mg, Kaz david -27 PO, PRN, l 04:04: PRN, Noel 58 anxiety, Substituti on Allowed promethazin 2011-0 Yes 25 mg, 1 Me moria e 25 mg 2-27 tab, PO, l oral tablet 04:04: Q12H, PRN, Noel 01 15 tab, Nausea, Substituti on Allowed metolazone 2011-0 Yes 5 mg, 1 Kaz david 5 mg oral -27 tab, PO, l tablet 04:03: Daily, 30 Pankaj n 04 tab, Substituti on Allowed, TAB glyBURIDE Yes 2.5 mg, 1 Mem oria 2.5 mg oral - tab, PO, l tablet 04:01: TID, 30 Noel 59 tab, Substituti on Allowed, TAB nitroglycer No Evaristo J 1 inch, Memoria in 2% 07-06erman Route: l ointment 03:43: TOP, Drug Form: OINT, ONCE, STAT, Start date: 07/05/11 21:43:00, Stop date: 07/05/11 21:43:00 nitroglycer No Evaristo J 0.4 mg, 1 Memoria in 07-06 [place] tab, l 03:43: Route: SL, Noel Drug form: TAB, Q5Min, PRN Chest Pain, (Hold if SBP < = 90 mmHg or if < = 100mmHg with symptomati c dizziness) , Start date: 07/05/11 21:43:00, Duration: 3 doses or times, Stop date: Limited # of times aspirin 81 0 No Evaristo J 81 mg, 1 Memoria mg tablet, 07-06 [place] tab, l chewable 03:43: Route: PO, Her [place] Drug form: CHEWTAB, ONCE, Priority: STAT, Start date: 07/05/11 21:43:00, Stop date: 07/05/11 21:43:00 Saline 2011- No Evaristo J 5 ml, Memoria Flush 0.9% 07-06 Route: l 03:43: IVP, Drug Noel 00 Form: INJ, PRN, PRN Line Flush, Start date: 07/05/11 21:43:00, Duration: 24 hr, Stop date: 07/06/11 21:42:00 Coumadin 2010-05 No Desean 10 mg, 1 Kaz david 2- Jagdishcha tab, l 23:00: ndra [place] Route: PO, He rm 00 Drug form: TAB, ONCE, Start date: 05/05/11 17:00:00, Stop date: 05/05/11 17:00:00 Coumadin 2010-05 No Desean 10 mg, 1 Kaz david 2- Jagdishcha tab, l 20:58: ndra Catr[place] Route: PO, He rm Drug form: TAB, ONCE, Start date: 05/05/11 14:58:00, Stop date: 05/05/11 14:58:00 Coumadin 2010-05 No Yury R 10 mg, 1 Memoria - Anderson tab, l 23:00: Route: PO, [place] 00 Drug form: TAB, ONCE, Start date: 05/04/11 17:00:00, Stop date: 05/04/11 17:00:00 Coreg 2010-05 No Kiritkumar 3.125 mg, M emoria 2-26 A Morrison 1 tab, l 23:00: Route: PO, [place] 00 Drug form: TAB, BID, Start date: 05/04/11 17:00:00, Duration: 30 day, Stop date: 06/03/11 9:00:00 Coumadin 2010-05 No Yury R 10 mg, 1 Memoria 2-25 Anderson tab, l 23:00: Route: PO, Noel 00 Drug form: TAB, ONCE, Start date: 05/03/11 17:00:00, Stop date: 05/03/11 17:00:00 Carafate 2010-05 No Desean 1 gm, 1 Memor ia 2- Jagdishcha tab, l 23:00: ndra [place] Route: PO, rm Drug form: TAB, BID, Start date: [...] l 14:00: [place] SUB-Q, Drug form: INJ, [id number], Start date: 04/30/11 8:00:00, Duration: 30 day, Stop date: 05/29/11 20:00:00 Zofran 2010-05 No Kiritkumar 2 mg, 1 Me moria 2-21 A Morrison mL, Route: l 20:35: IVP, Drug form: INJ, Q8H, PRN Nausea, Start date: 04/29/11 14:35:00, Duration: 30 day, Stop date: 05/29/11 14:34:00 NovoLog 2010-05 No Yury R 5 unit, M emoria FlexPen 2-21 Anderson 0.05 mL, l 19:22: Route: Noel 00 SUB-Q, Drug form: SOLN, Sliding Scale, PRN Blood Glucose Results, Start date: 04/29/11 13:22:00, Duration: 30 day, Stop date: 05/29/11 13:21:00 glucagon 2010-05 No Yury R 1 mg, Me moria 06-30 Justin Route: IV, l 19:22: Drug form: [place] 00 PDR/INJ, PRN, PRN Blood Glucose Results, [...] R 250 mL, Me moria Chloride 06-30 Anderson Route: l 0.9% IV 19:14: IVPB, PRN, Herm pinky 00 Line Flush, Start date: 04/29/11 13:14:00, Duration: 30 day, Stop date: 05/29/11 13:13:00 BD Normal 2010-05 No Yury R 10 mL, Memoria Saline 06-30 Justin Route: l Flush 19:13: IVP, Drug Noel 00 Form: INJ, PRN, PRN Line Flush, Start date: 04/29/11 13:13:00, Duration: 30 day, Stop date: 05/29/11 13:12:00 Coumadin 2010-05 No Yury R 2.5 mg, 1 Memoria 06-30 Anderson tab, l 03:00: Route: PO, [place] 00 Drug form: TAB, Bedtime, Start date: 04/28/11 21:00:00, Duration: 30 day, Stop date: 05/27/11 21:00:00 Lovenox 2010-05 No Yury R 80 mg, 0.8 Memoria 06-30 Anderson mL, Route: l 02:00: SUB-Q, Noel Drug form: INJ, [id number], Start date: 04/28/11 20:00:00, Duration: 30 day, Stop date: 05/28/11 8:00:00 Protonix 2010-05 No Kiritkumar 40 mg, 1 Memoria 2-20 A Morrison tab, l 22:30: Route: PO, Noel 00 Drug form: ECTAB, Before Dinner, Start date: 04/28/11 16:30:00, Duration: 30 day, Stop date: 05/27/11 16:30:00 Betapace 2010-05 No Yury R 80 mg, 1 Memoria 2-20 Anderson tab, l 16:52: Route: PO, Drug form: TAB, BID, Start [...] Anderson mL, Route: l 13:31: IV, Drug Noel 00 form: INJ, ONCE, Start date: 04/28/11 7:31:00, Stop date: 04/28/11 7:31:00 morphine 2010-05 No Kiritkumar 2 mg, 0.4 Memoria Sulfate 2-20 A Morrison mL, Route: l 10:44: IV, Drug [place] 00 form: INJ, ONCE, Start date: 04/28/11 4:44:00, Stop date: 04/28/11 4:44:00 Phenergan 2010-05 No Kiritkumar 25 mg, 1 Memoria 2-20 A Morrison tab, l 08:13: Route: PO, [place] 00 Drug form: TAB, Q6H, PRN Nausea, Start [...] A Morrison mL, Route: l 07:00: SUB-Q, [place] Drug form: INJ, [id number], Start date: 04/28/11 1:00:00, Duration: 30 day, Stop date: 05/27/11 13:00:00 diltiazem 2010-05 No Kiritkumar 100 mL, Memoria 100 mg + 2-20 A Morrison Rate: l Sodium 06:36: titrate, [place] Chloride 00 Route: IV, 0.9% IV 100 Total mL Volume: 100, Start date: 04/28/11 0:36:00, Duration: 30 day, Stop date: 05/28/11 0:35:00 glucagon 2010-05 No Yury R 1 mg, Me moria 2-20 Anderson Route: IV, l 06:35: Drug form: [place] 00 PDR/INJ, PRN, PRN Blood Glucose Results, Start date: 04/28/11 0:35:00, Duration: 30 day, Stop date: 05/28/11 0:34:00 Dextrose 2010-05 No Yury R Route: M emoria 50% in 2-20 Anderson IVP, PRN, l Water IV 06:35: Blood [place] 00 Glucose Results, Start date: 04/28/11 0:35:00, Duration: 30 day, Stop date: 05/28/11 0:34:00 NovoLog 2010-05 No Yury R 10 unit, Memoria FlexPen 2-20 Anderson 0.1 mL, l 06:35: Route: [place] 00 SUB-Q, Drug form: SOLN, Sliding Scale, PRN Blood Glucose Results, Start date: 04/28/11 0:35:00, Duration: 30 day, Stop date: 05/28/11 0:34:00 Avelox 400 2010-05 No Annette 400 mg, 1 Me moria mg oral 0-11 [place] tab, l tablet 15:36: [place] Route: PO, Her green[place] Drug form: TAB, [id number], Priority: NOW, Start date: 02/17/11 10:36:00, Duration: 30 day, Stop date: 03/18/11 10:36:00 Avelox 400 2010-05 Yes Annette 400 mg, 1 Me moria mg oral 0-11 [place] tab, PO, l tablet 15:31: [place] Daily, 7 Jessica nn 58 tab, Substituti on Allowed, TAB Protonix 2010-05 No Annette 40 mg, 1 Memor ia 0-11 [place] tab, l 12:30: [place] Route: PO, Jessica nn 00 Drug form: ECTAB, Before Breakfast, Start date: 02/17/11 7:30:00, Duration: 30 day, Stop date: 03/18/11 7:30:00 azithromyci 2010-05 No Annette 500 mg, 2 M emoria n 500 mg 0-11 [place] tab, l oral tablet 04:00: [place] Route: PO, Noel 00 Drug form: TAB, [...] Memoria 0-10 [place] mL, Route: l 16:43: [place] IVP, Drug Pankaj n 00 form: INJ, Q4H, PRN Elevated BP, Start date: 02/16/11 11:43:00, Duration: 30 day, Stop date: 03/18/11 11:42:00 Lopressor 2010-05 No Annette 5 mg, 5 Memor ia 0-10 [place] mL, Route: l 16:43: [place] IVP, Drug Pankaj n 00 form: INJ, Q6H, PRN Elevated BP, Start date: 02/16/11 11:43:00, Duration: 30 day, Stop date: 03/18/11 11:42:00 Visipaque 2010-05 No Annette 48,000 mg, Me moria 0-10 [place] 150 mL, l 14:05: [place] Route: IV, Jessica nn Drug form: INJ, ONCE, Start date: 02/16/11 9:05:00, Stop date: 02/16/11 9:05:00 potassium 2010-05 No Annette 10 mEq, 1 Mem oria chloride 0-10 [place] tab, l 14:00: [place] Route: PO, Jessica nn Drug form: ERTAB, Daily, Start date: 02/16/11 9:00:00, Duration: 30 day, Stop date: 03/17/11 9:00:00 glyBURIDE 2010-05 No Annette 5 mg, 1 Memor ia 0-10 [place] tab, l 14:00: [place] Route: PO, Jessica nn Drug form: TAB, Daily, Start date: 02/16/11 9:00:00, Duration: 30 day, Stop date: 03/17/11 9:00:00 Lasix 40 mg 2010-05 No Annette 40 mg, 2 Me moria oral tablet 0-10 [place] tab, l 14:00: [place] Route: PO, Jessica nn Drug form: TAB, [...] ia 0-09 [place] Route: PO, l 22:00: [place] Drug form: Jessica nn 00 TAB, BID, Start date: 02/15/11 17:00:00, Duration: 30 day, Stop date: 03/17/11 9:00:00 gabapentin 2010-05 No Annette 600 mg, 2 Me moria 600 mg oral 0-09 [place] cap, l tablet 18:00: [place] Route: PO, Her greenwood 00 Drug form: CAP, TID, Start date: 02/15/11 13:00:00, Duration: 30 day, Stop date: 03/17/11 9:00:00 aspirin 81 2010-05 Yes 1 tab, PO, M emoria mg tablet, 0-09 Daily, 0 l enteric 16:58: tab, Noel coated 50 Substituti on Allowed, ECTAB glyBURIDE 5 2010-05 Yes Annette 1 tab, PO, Memoria mg oral 0-09 [place] Daily, 30 l tablet 16:58: [place] tab, Noel 30 Substituti on Allowed, TAB doxycycline 2010-05 No 1 cap, PO, Memoria hyclate 100 0-09 BID, cap, l mg oral 16:58: Substituti Herm pinky capsule 11 on Allowed predniSONE 2010-05 Yes Annette 1 tab, PO, M emoria 50 mg oral 0-09 [place] BID, tab, l tablet 16:57: [place] Substituti greenwood 48 on Allowed, TAB gabapentin 2010-05 Yes Annette 1 tab, PO, M emoria 600 mg oral 0-09 [place] TID, 270 l tablet 16:57: [place] tab, Noel 13 Substituti on Allowed Klor-Con 2010-05 Yes Annette 1 tab, PO, Mem oria M10 oral 0-09 [place] Daily, l tablet, 16:56: [place] tab, Noel extended 57 Substituti release on Allowed, ERTAB lisinopril 2010-05 Yes 1 tab, PO, M emoria 10 mg oral 0-09 BID, 30 l tablet 16:56: tab Noel 17 Substituti on Allowed, TAB Lasix 40 mg 2010-05 Yes Annette 1 tab, PO, Memoria oral tablet 0-09 [place] Daily, 30 l 16:56: [place] tab, Noel 00 Substituti on Allowed, TAB Coreg 12.5 2010-05 Yes 1 tab, PO, M emoria mg oral 0-09 BID, 60 l tablet 16:55: tab, [place] 44 Substituti on Allowed, TAB Zofran ODT 2010-05 Yes 4 mg, 1 Kaz david 4 mg oral 0-09 tab, PO, l tablet, 16:55: Q8H, PRN, Jessica nn disintegrat 22 as needed ing for nausea/vom iting, Substituti on Allowed, TAB Xanax 0.5 2010-05 Yes 1 tab, PO, Me moria mg oral 0-09 Daily, l tablet 16:54: PRN, 30 Noel 59 tab, Anxiety, Substituti on Allowed cefepime 2010-05 No Annette 1 gm, [facility]oria 0-09 [place] Route: l 16:00: [place] PRITCHARDPB, Noel 00 [id number], Start date: 02/15/11 11:00:00, Duration: 30 day, Stop date: 03/16/11 23:00:00 pantoprazol 2010-05 No Crystal 40 mg, M emoria e 0- Kristen Route: l 14:00: Elvia IVP, Drug [place] 00 form: INJ, Daily, Start date: 02/15/11 [...] 0-09 Kristen mL, Route: l 14:00: Elvia SUB-Q, Noel Drug form: INJ, Daily, Start date: 02/15/11 9:00:00, Duration: 30 day, Stop date: 03/16/11 9:00:00 predniSONE 2010-05 No Arnaldo R 40 mg, 2 Memoria 0-09 Morrison tab, l 14:00: Route: PO, [place] 00 Drug form: TAB, Daily, Start date: 02/15/11 [...] Mem oria 0-09 [place] cap, l 04:40: [place] Route: PO, Jessica nn 00 Drug form: CAP, Q8H, Start date: 02/14/11 23:40:00, Duration: 30 day, Stop date: 03/16/11 16:00:00 ceftriaxone 2010-05 No Arnaldo R 1 gm, M emoria 0-09 [place] Route: l 04:00: MACHOPB, [place] 00 [id number], Start date: 02/14/11 23:00:00, Duration: 30 day, Stop date: 03/15/11 23:00:00 azithromyci 2010-05 No Crystal 500 mg, Memoria n 0-09 Kristen Route: l 04:00: Elvia IVPB, [place] 00 [id number], Start date: 02/14/11 23:00:00, Duration: 30 day, Stop date: 03/15/11 23:00:00 Vicodin 2010-05 No Crystal 1 tab, Memor ia 5/500 oral 009 Kristen Route: PO, l tablet 03:13: Elvia [...] mL, Route: l 03:12: Elvia PO, Drug [place] 00 form: LIQ, Q4H, PRN Cough, Start date: 02/14/11 22:12:00, Duration: 30 day, Stop date: 03/16/11 22:11:00 Insulin 2010-05 No Crystal 10 unit, Mem oria (Novolog) 0-09 Kristen 0.1 mL, l Sliding 03:08: Elvia Route: Noel Scale - Low 00 SUB-Q, Drug form: [...] ml, Route: l 03:08: Elvia IVP, Drug [place] 00 Form: INJ, PRN, PRN Blood Glucose [...] l tablet 03:04: Elvia Route: PO, Herm Drug form: TAB, Bedtime, Priority: NOW, Start date: 02/14/11 22:04:00, Duration: 30 day, Stop date: 03/16/11 21:00:00 Coreg 2010-05 No J Benny 6.25 mg, 2 Kaz david 0-09 Mendez tab, l 03:04: Route: PO, Noel 00 Drug form: TAB, Q12H, Priority: NOW, Start [...] 0-09 Forbes tab, l 01:28: Route: PO, [place] 00 Drug form: TAB, ONCE, Priority: STAT, Start date: 02/14/11 20:28:00, Stop date: 02/14/11 20:28:00 ondansetron 2010-05 No Abdon G 4 mg, 2 Memoria 0-09 Forbes mL, Route: l 00:31: IVP, Drug [place] 00 form: INJ, ONCE, Priority: STAT, Start date: 02/14/11 19:31:00, Stop date: 02/14/11 19:31:00 morphine 2010- No Abdon G 4 mg, 1 Mem oria Sulfate 0-09 Forbes mL, Route: l 00:30: IVP, Drug Noel 00 form: INJ, ONCE, Priority: STAT, Start date: 02/14/11 19:30:00, Stop date: 02/14/11 19:30:00 Saline 2010- No Abdon G 5 ml, Memoria Flush 0.9% 0-08 Forbes Route: l 23:21: IVP, Drug [place] 00 Form: INJ, PRN, PRN Line Flush, Start date: 02/14/11 18:21:00, Duration: 30 day, Stop date: 03/16/11 17:20:00 Vital Signs Vital Name Observation Time Observation Value Comments Source Respitory Rate 2018-12-01 20:24:00 Memori al Noel Systolic (mm Hg) 2018-12-01 20:24:00 Kaz rial Noel Diastolic (mm Hg) 2018-12-01 20:24:00 [facility] [place] Temperature Oral (F) 2018-12-01 20:24:00 98.5 F [facility] [place] Heart Rate 2018-12-01 20:24:00 [facility] Noel Systolic (mm Hg) 2018-12-01 16:14:00 Kaz rial Noel Diastolic (mm Hg) 2018-12-01 16:14:00 [facility] [place] Heart Rate 2018-12-01 16:14:00 [facility] Noel Respitory Rate 2018-12-01 16:14:00 [facility] Noel Temperature Oral (F) 2018-12-01 16:14:00 98.1 F [facility] No[facility] Systolic (mm Hg) 2018-12-01 13:27:00 Kaz rial Noel Diastolic (mm Hg) 2018-12-01 13:27:00 Mem o[facility] Noel Respitory Rate 2018-12-01 12:23:00 [facility] [place] Heart Rate 2018-12-01 12:23:00 [facility] [place] Height 2018-12-01 09:32:00 193.04 cm [facility] [place] BMI Calculated 2018-11-30 04:11:00 [facility] [place] Weight 2018-11-30 04:11:00 [facility] [place] Height 2018-11-30 04:11:00 193.04 cm [facility] [place] Systolic (mm Hg) 2018-03-29 17:39:00 Kaz rial Noel Diastolic (mm Hg) 2018-03-29 17:39:00 [facility] [place] Respitory Rate 2018-03-29 17:39:00 [facility] [place] Heart Rate 2018-03-29 17:39:00 [facility] No[facility] Temperature Oral (F) 2018-03-29 17:39:00 97.5 F [facility] Heart Rate 2018-03-29 13:52:00 [facility] [place] Respitory Rate 2018-03-29 13:52:00 [facility] Noel Systolic (mm Hg) 2018-03-29 13:52:00 Kaz rial [place] Diastolic (mm Hg) 2018-03-29 13:52:00 [facility] [place] Temperature Oral (F) 2018-03-29 13:52:00 98.4 F [facility] Weight 2018-03-29 12:08:00 [facility] Noel Systolic (mm Hg) 2018-03-29 09:30:00 Kaz rial [place] Diastolic (mm Hg) 2018-03-29 09:30:00 [facility] Noel Heart Rate 2018-03-29 09:30:00 [facility] [place] Temperature Oral (F) 2018-03-29 09:30:00 98.3 F [facility] [place] Respitory Rate 2018-03-29 06:00:00 [facility] [place] BMI Calculated 2018-03-25 21:42:00 [facility] [place] Weight 2018-03-25 21:42:00 [facility] Height 2018-03-25 21:42:00 193.04 cm [facility] [place] Temperature Oral (F) 2017-04-11 13:01:00 97.9 F [facility] [place] Systolic (mm Hg) 2017-04-11 13:01:00 Kaz rial Noel Diastolic (mm Hg) 2017-04-11 13:01:00 Mem o[facility] Noel Respitory Rate 2017-04-11 13:01:00 [facility] [place] Heart Rate 2017-04-11 13:01:00 [facility] [place] Temperature Oral (F) 2017-04-11 10:00:00 98.2 F [facility] Heart Rate 2017-04-11 10:00:00 [facility] [place] Systolic (mm Hg) 2017-04-11 10:00:00 Kaz rial Noel Diastolic (mm Hg) 2017-04-11 10:00:00 [facility] [place] Respitory Rate 2017-04-11 10:00:00 [facility] [place] Systolic (mm Hg) 2017-04-11 06:00:00 Kaz rial Noel Diastolic (mm Hg) 2017-04-11 06:00:00 [facility] [place] Heart Rate 2017-04-11 06:00:00 [facility] Noel Respitory Rate 2017-04-11 06:00:00 [facility] [place] Temperature Oral (F) 2017-04-11 06:00:00 98.2 F [facility] [place] Height 2017-04-08 21:30:00 193.04 cm [facility] [place] Weight 2017-04-08 21:30:00 [facility] [place] BMI Calculated 2017-04-08 21:30:00 [facility] [place] Temperature Oral (F) 2017-03-23 22:16:00 98.4 F [facility] Heart Rate 2017-03-23 22:16:00 [facility] Respitory Rate 2017-03-23 22:16:00 [facility] [place] Systolic (mm Hg) 2017-03-23 22:16:00 Kaz rial [place] Diastolic (mm Hg) 2017-03-23 22:16:00 Mem o[facility] Noel Systolic (mm Hg) 2017-03-23 17:38:00 Kaz rial [place] Diastolic (mm Hg) 2017-03-23 17:38:00 [facility] [place] Temperature Oral (F) 2017-03-23 17:38:00 98.2 F [facility] [place] Heart Rate 2017-03-23 17:38:00 [facility] [place] Respitory Rate 2017-03-23 17:38:00 [facility] Noel Heart Rate 2017-03-23 13:43:00 [facility] Noel Systolic (mm Hg) 2017-03-23 13:43:00 Kaz rial Noel Diastolic (mm Hg) 2017-03-23 13:43:00 [facility] [place] Respitory Rate 2017-03-23 13:43:00 [facility] Noel Temperature Oral (F) 2017-03-23 13:43:00 98.4 F [facility] BMI Calculated 2017-03-16 22:19:00 [facility] Weight 2017-03-16 22:19:00 [facility] [place] Height 2017-03-16 22:19:00 193.04 cm [facility] Weight 2017-03-16 18:16:00 [facility] [place] BMI Calculated 2017-03-16 18:16:00 [facility] [place] Height 2017-03-16 18:16:00 193.04 cm [facility] Temperature Oral (F) 2016-03-11 18:06:00 97.9 F [facility] Systolic (mm Hg) 2016-03-11 18:06:00 Kaz rial [place] Diastolic (mm Hg) 2016-03-11 18:06:00 Mem [facility] Noel Heart Rate 2016-03-11 18:06:00 [facility] Noel Respitory Rate 2016-03-11 18:06:00 [facility] [place] Systolic (mm Hg) 2016-03-11 12:58:00 Kaz rial Noel Diastolic (mm Hg) 2016-03-11 12:58:00 Mem o[facility] Noel Respitory Rate 2016-03-11 12:58:00 [facility] No[place] Temperature Oral (F) 2016-03-11 12:58:00 98.1 F [facility] Heart Rate 2016-03-11 12:58:00 [facility] [place] Heart Rate 2016-03-11 09:18:00 [facility] [place] Temperature Oral (F) 2016-03-11 09:18:00 97.8 F [facility] Respitory Rate 2016-03-11 09:18:00 [facility] [place] Systolic (mm Hg) 2016-03-11 09:18:00 Kaz rial Noel Diastolic (mm Hg) 2016-03-11 09:18:00 [facility] [place] BMI Calculated 2016-03-09 19:03:00 [facility] Noel Weight 2016-03-09 19:03:00 [facility] Height 2016-03-09 19:03:00 193.04 cm [facility] Respitory Rate 2016-01-18 13:00:00 [facility] [place] Heart Rate 2016-01-18 13:00:00 [facility] [place] Temperature Oral (F) 2016-01-18 13:00:00 98.7 F [facility]el Systolic (mm Hg) 2016-01-18 09:06:00 Kaz rial Noel Diastolic (mm Hg) 2016-01-18 09:06:00 [facility] [place] Temperature Oral (F) 2016-01-18 09:06:00 98.2 F [facility] [place] Heart Rate 2016-01-18 09:06:00 [facility] Noel Respitory Rate 2016-01-18 09:06:00 [facility] [place] Systolic (mm Hg) 2016-01-18 03:54:00 Kaz rial Noel Diastolic (mm Hg) 2016-01-18 03:54:00 Mem [facility] Noel Temperature Oral (F) 2016-01-18 03:54:00 98.1 F [facility] [place] Heart Rate 2016-01-18 03:54:00 [facility] [place] Respitory Rate 2016-01-18 03:54:00 [facility] Noel Weight 2016-01-18 01:05:00 [facility] BMI Calculated 2016-01-18 01:05:00 [facility] [place] Height 2016-01-18 01:05:00 193.04 cm [facility] Diastolic (mm Hg) 2016-01-18 00:55:00 [facility] [place]el Systolic (mm Hg) 2016-01-18 00:55:00 Kaz rial [place] Weight 2016-01-17 21:23:00 [facility] Heart Rate 2015-05-28 23:23:00 [facility] Temperature Oral (F) 2015-05-28 23:23:00 97.9 F [facility] Respitory Rate 2015-05-28 23:23:00 [facility] [place] Systolic (mm Hg) 2015-05-28 23:23:00 Kaz rial Noel Diastolic (mm Hg) 2015-05-28 23:23:00 [facility] [place] Weight 2015-05-28 21:05:00 [facility] [place] Temperature Oral (F) 2015-05-28 21:05:00 97.8 F [facility] Respitory Rate 2015-05-28 21:05:00 [facility] Heart Rate 2015-05-28 21:05:00 [facility] Systolic (mm Hg) 2015-05-28 21:05:00 Kaz rial [place] Diastolic (mm Hg) 2015-05-28 21:05:00 Mem [facility] [place] Systolic (mm Hg) 2015-04-24 17:04:00 Kaz rial Noel Diastolic (mm Hg) 2015-04-24 17:04:00 Mem [facility] [place] Respitory Rate 2015-04-24 17:04:00 [facility] [place] Temperature Oral (F) 2015-04-24 17:04:00 97.7 F [facility] Heart Rate 2015-04-24 17:04:00 [facility] [place] Systolic (mm Hg) 2015-04-24 14:20:00 Kaz rial Noel Diastolic (mm Hg) 2015-04-24 14:20:00 Mem o[facility] Noel Respitory Rate 2015-04-24 14:20:00 [facility] Noel Temperature Oral (F) 2015-04-24 14:20:00 97.2 F [facility] Heart Rate 2015-04-24 14:20:00 [facility] [place] Systolic (mm Hg) 2015-04-24 12:24:00 Kaz rial Noel Diastolic (mm Hg) 2015-04-24 12:24:00 Mem o[facility] Noel Respitory Rate 2015-04-24 12:24:00 [facility] Heart Rate 2015-04-24 12:24:00 [facility] [place] Temperature Oral (F) 2015-04-24 00:30:00 97.7 F [facility] Weight 2015-04-21 07:11:00 [facility] Height 2015-04-21 07:11:00 187.96 cm [facility] [place] BMI Calculated 2015-04-21 07:11:00 [facility] Noel Temperature Oral (F) 2015-02-03 00:13:00 98 F [facility] [place] Heart Rate 2015-02-03 00:13:00 [facility] [place] Systolic (mm Hg) 2015-02-03 00:13:00 Kaz rial Noel Diastolic (mm Hg) 2015-02-03 00:13:00 Mem o[facility] Noel Respitory Rate 2015-02-03 00:13:00 [facility] [place] Height 2015-02-02 20:33:00 172.72 cm [facility] Weight 2015-02-02 20:33:00 [facility] [place] BMI Calculated 2015-02-02 20:33:00 [facility] No[facility] Respitory Rate 2015-02-02 20:33:00 [facility] [place] Temperature Oral (F) 2015-02-02 20:33:00 98.2 F [facility] [place] Heart Rate 2015-02-02 20:33:00 [facility] Systolic (mm Hg) 2015-02-02 20:33:00 Kaz rial Noel Diastolic (mm Hg) 2015-02-02 20:33:00 Mem o[facility] [place] Heart Rate 2014-07-07 04:20:00 [facility] [place] Respitory Rate 2014-07-07 04:20:00 [facility] [place] Temperature Oral (F) 2014-07-07 04:20:00 98.3 F [facility] [place] Heart Rate 2014-07-07 03:38:00 [facility] Respitory Rate 2014-07-07 03:38:00 [facility] [place] Systolic (mm Hg) 2014-07-07 03:38:00 Kaz rial [place] Diastolic (mm Hg) 2014-07-07 03:38:00 Mem o[facility] Noel Systolic (mm Hg) 2014-07-07 02:16:00 Kaz rial [place] Diastolic (mm Hg) 2014-07-07 02:16:00 Mem [facility] [place] Respitory Rate 2014-07-07 02:16:00 [facility] [place] Heart Rate 2014-07-07 02:16:00 [facility] Systolic (mm Hg) 2014-07-07 00:30:00 Kaz rial [place] Diastolic (mm Hg) 2014-07-07 00:30:00 Mem [facility] Noel Temperature Oral (F) 2014-07-07 00:30:00 98.1 F [facility] [place] Height 2014-07-07 00:30:00 193.04 cm [facility] BMI Calculated 2014-07-07 00:30:00 [facility] [place] Weight 2014-07-07 00:30:00 [facility] Diastolic (mm Hg) 2014-04-02 17:45:00 [facility] [place] Systolic (mm Hg) 2014-04-02 17:45:00 Kaz rial [place] Respitory Rate 2014-04-02 17:45:00 [facility] [place] Diastolic (mm Hg) 2014-04-02 17:30:00 Mem o[facility] Noel Respitory Rate 2014-04-02 17:30:00 [facility] [place] Systolic (mm Hg) 2014-04-02 17:30:00 Kaz rial [place] Diastolic (mm Hg) 2014-04-02 17:15:00 [facility] [place] Systolic (mm Hg) 2014-04-02 17:15:00 Kaz rial Noel Respitory Rate 2014-04-02 17:15:00 [facility] [place] Temperature Oral (F) 2014-04-02 15:15:00 97.9 F [facility] Temperature Oral (F) 2014-04-02 13:00:00 97.7 F [facility] [place] Height 2014-03-30 16:58:00 193.04 cm [facility] [place] BMI Calculated 2014-03-30 16:58:00 [facility] Weight 2014-03-30 16:58:00 [facility] [place] Temperature Oral (F) 2014-03-30 16:58:00 98.2 F [facility] [place] Heart Rate 2014-03-30 16:58:00 [facility] Respitory Rate 2014-03-06 00:15:00 [facility] [place] Heart Rate 2014-03-06 00:15:00 [facility] Temperature Oral (F) 2014-03-06 00:15:00 98.1 F [facility] Systolic (mm Hg) 2014-03-06 00:15:00 Kaz rial [place] Diastolic (mm Hg) 2014-03-06 00:15:00 [facility] [place] Systolic (mm Hg) 2014-03-05 20:12:00 Kaz rial [place] Temperature Oral (F) 2014-03-05 20:12:00 98.1 F [facility] Heart Rate 2014-03-05 20:12:00 [facility] [place] Respitory Rate 2014-03-05 20:12:00 [facility] [place] Diastolic (mm Hg) 2014-03-05 20:12:00 Mem [facility] [place] Respitory Rate 2014-03-05 16:21:00 [facility] [place] Diastolic (mm Hg) 2014-03-05 16:21:00 [facility] [place] Systolic (mm Hg) 2014-03-05 16:21:00 Kaz rial [place] Heart Rate 2014-03-05 16:21:00 [facility] [place] Temperature Oral (F) 2014-03-05 16:21:00 98.1 F [facility] Weight 2014-02-27 10:20:00 [facility] [place] Weight 2014-02-26 07:14:00 [facility] BMI Calculated 2014-02-26 07:14:00 [facility] Height 2014-02-26 07:14:00 193.04 cm [facility] [place] Height 2014-02-25 23:21:00 193.04 cm [facility] [place] Weight 2014-02-25 23:21:00 [facility] [place] BMI Calculated 2014-02-25 23:21:00 [facility] [place] Temperature Oral (F) 2014-01-28 17:04:00 99 F [facility] [place] Heart Rate 2014-01-28 17:04:00 [facility] Respitory Rate 2014-01-28 17:04:00 [facility] [place] Diastolic (mm Hg) 2014-01-28 17:04:00 [facility] [place] Systolic (mm Hg) 2014-01-28 17:04:00 Kaz rial Noel Temperature Oral (F) 2014-01-28 13:02:00 98.8 F [facility] [place] Heart Rate 2014-01-28 13:02:00 [facility] Respitory Rate 2014-01-28 13:02:00 [facility] [place] Systolic (mm Hg) 2014-01-28 13:02:00 Kaz rial Noel Diastolic (mm Hg) 2014-01-28 13:02:00 [facility] [place] Weight 2014-01-28 10:00:00 [facility] [place] Systolic (mm Hg) 2014-01-28 09:00:00 Kaz rial Noel Diastolic (mm Hg) 2014-01-28 09:00:00 [facility] [place] Temperature Oral (F) 2014-01-28 09:00:00 98.5 F [facility] [place] Heart Rate 2014-01-28 09:00:00 [facility] [place] Respitory Rate 2014-01-28 09:00:00 [facility] [place] BMI Calculated 2014-01-26 09:56:00 [facility] [place] Height 2014-01-26 09:56:00 193.04 cm [facility] [place] Weight 2014-01-26 09:56:00 [facility] Height 2012-07-20 20:49:00 193.04 cm [facility] [place] Weight 2012-07-20 20:49:00 [facility] Systolic (mm Hg) 2012-02-28 02:30:00 Kaz rial [facility] Heart Rate 2012-02-28 02:30:00 [facility] Respitory Rate 2012-02-28 02:30:00 [facility] [place] Diastolic (mm Hg) 2012-02-28 02:30:00 [facility] [place] Temperature Oral (F) 2012-02-28 02:30:00 98.7 F [facility] Diastolic (mm Hg) 2012-02-27 21:00:00 [facility] [place] Respitory Rate 2012-02-27 21:00:00 [facility] [place] Systolic (mm Hg) 2012-02-27 21:00:00 Kaz rial Noel Temperature Oral (F) 2012-02-27 21:00:00 98.3 F [facility] [place] Heart Rate 2012-02-27 21:00:00 [facility] Diastolic (mm Hg) 2012-02-27 17:00:00 [facility] [place] Systolic (mm Hg) 2012-02-27 17:00:00 Kza rial [place]el Respitory Rate 2012-02-27 17:00:00 [facility] [place] Temperature Oral (F) 2012-02-27 17:00:00 97.5 F [facility] Heart Rate 2012-02-27 17:00:00 [facility] [place] Height 2012-02-26 05:58:00 193.04 cm [facility] Weight 2012-02-26 05:58:00 [facility] Weight 2012-02-26 05:13:00 [facility] [place] Height 2012-02-26 05:13:00 193.04 cm [facility] [place] Respitory Rate 2011-12-08 16:20:00 [facility] [place] Diastolic (mm Hg) 2011-12-08 16:20:00 [facility] [place] Systolic (mm Hg) 2011-12-08 16:20:00 Kaz rial [place] Temperature Oral (F) 2011-12-08 16:20:00 98.9 F [facility] [place] Heart Rate 2011-12-08 16:20:00 [facility] Temperature Oral (F) 2011-12-08 13:00:00 99.2 F [facility] Heart Rate 2011-12-08 13:00:00 [facility] [place] Systolic (mm Hg) 2011-12-08 13:00:00 Kaz rial [place] Respitory Rate 2011-12-08 13:00:00 [facility] [place] Diastolic (mm Hg) 2011-12-08 13:00:00 [facility] [place] Diastolic (mm Hg) 2011-12-08 10:13:00 [facility] [place] Systolic (mm Hg) 2011-12-08 10:13:00 Kaz rial [place] Respitory Rate 2011-12-08 10:13:00 [facility] [place] Heart Rate 2011-12-08 10:13:00 [facility] [place] Temperature Oral (F) 2011-12-08 10:13:00 97.9 F [facility] Height 2011-12-03 19:23:00 193.04 cm [facility] [place] Weight 2011-12-03 19:23:00 [facility] [place] Weight 2011-12-01 22:46:00 [facility] Height 2011-12-01 22:46:00 193.04 cm [facility] [place] Weight 2011-12-01 22:06:00 [facility] [place] Height 2011-12-01 22:06:00 193.04 cm [facility] [place] Respitory Rate 2011-08-28 12:00:00 [facility] Heart Rate 2011-08-28 12:00:00 [facility] [place] Diastolic (mm Hg) 2011-08-28 12:00:00 [facility] [place] Systolic (mm Hg) 2011-08-28 12:00:00 Kaz rial [place] Temperature Oral (F) 2011-08-28 12:00:00 97.7 F [facility] Diastolic (mm Hg) 2011-08-28 04:00:00 [facility] [place] Systolic (mm Hg) 2011-08-28 04:00:00 Kaz rial [facility] Heart Rate 2011-08-28 04:00:00 [facility] [place] Respitory Rate 2011-08-28 04:00:00 [facility] Temperature Oral (F) 2011-08-28 04:00:00 97.9 F [facility] Diastolic (mm Hg) 2011-08-27 20:52:00 [facility] [place] Systolic (mm Hg) 2011-08-27 20:52:00 Kaz rial [place] Respitory Rate 2011-08-27 20:52:00 [facility] Heart Rate 2011-08-27 20:52:00 [facility] Temperature Oral (F) 2011-08-27 20:52:00 98.1 F [facility] [place] Weight 2011-08-26 21:30:00 [facility] [place] Height 2011-08-26 21:30:00 193.04 cm [facility] [place] Respitory Rate 2011-07-07 14:00:00 [facility] Diastolic (mm Hg) 2011-07-07 14:00:00 [facility] [place] Heart Rate 2011-07-07 14:00:00 [facility] [place] Systolic (mm Hg) 2011-07-07 14:00:00 Kaz rial [place] Temperature Oral (F) 2011-07-07 14:00:00 98.4 F [facility] Diastolic (mm Hg) 2011-07-07 10:00:00 [facility] [place] Systolic (mm Hg) 2011-07-07 10:00:00 Kaz rial [place] Respitory Rate 2011-07-07 10:00:00 [facility] [place] Temperature Oral (F) 2011-07-07 10:00:00 97.3 F [facility] Heart Rate 2011-07-07 10:00:00 [facility] [place] Temperature Oral (F) 2011-07-07 06:00:00 97.8 F [facility] Weight 2011-07-06 09:52:00 [facility] Weight 2011-07-06 08:45:00 [facility] [place] Height 2011-07-06 08:45:00 193.04 cm [facility] [place] Systolic (mm Hg) 2011-05-05 18:00:00 Kaz rial [place] Respitory Rate 2011-05-05 18:00:00 [facility] [place] Diastolic (mm Hg) 2011-05-05 18:00:00 [facility] [place] Heart Rate 2011-05-05 18:00:00 [facility] [place] Temperature Oral (F) 2011-05-05 18:00:00 98.6 F [facility] [place] Heart Rate 2011-05-05 14:00:00 [facility] [place] Diastolic (mm Hg) 2011-05-05 14:00:00 [facility] Systolic (mm Hg) 2011-05-05 14:00:00 Kaz rial [place] Respitory Rate 2011-05-05 14:00:00 [facility] Temperature Oral (F) 2011-05-05 14:00:00 98.0 F [facility] Temperature Oral (F) 2011-05-05 10:00:00 98.6 F [facility] Systolic (mm Hg) 2011-05-05 10:00:00 Kaz rial [place] Diastolic (mm Hg) 2011-05-05 10:00:00 [facility] [place] Respitory Rate 2011-05-05 10:00:00 [facility] Heart Rate 2011-05-05 10:00:00 [facility] Weight 2011-05-02 11:34:00 [facility] Weight 2011-04-28 06:28:00 [facility] Height 2011-04-28 06:28:00 193.04 cm [facility] Respitory Rate 2011-02-17 19:45:00 [facility] Heart Rate 2011-02-17 19:45:00 [facility] Temperature Oral (F) 2011-02-17 19:45:00 97.8 F [facility] [place] Systolic (mm Hg) 2011-02-17 19:45:00 Kaz rial [facility] Diastolic (mm Hg) 2011-02-17 19:45:00 [facility] Diastolic (mm Hg) 2011-02-17 15:30:00 [facility] Temperature Oral (F) 2011-02-17 15:30:00 97.7 F [facility] Systolic (mm Hg) 2011-02-17 15:30:00 Kaz rial [facility] Respitory Rate 2011-02-17 15:30:00 [facility] [place] Heart Rate 2011-02-17 15:30:00 [facility] Diastolic (mm Hg) 2011-02-17 12:13:00 [facility] [place] Respitory Rate 2011-02-17 12:13:00 [facility] Systolic (mm Hg) 2011-02-17 12:13:00 Kaz rial [facility] Temperature Oral (F) 2011-02-17 12:13:00 98.5 F [facility] [place] Heart Rate 2011-02-17 12:13:00 [facility] Weight 2011-02-15 02:25:00 [facility] [place] Height 2011-02-15 02:25:00 193.04 cm [facility] Weight 2011-02-14 23:10:00 [facility] Height 2011-02-14 23:10:00 193.04 cm [facility] [place] Procedures Procedure Date / Time Performed Performing Clinician Sourc e Fluoroscopic angiography [facility] [place] of coronary artery and insertion of stent Fusion of lumbar spine [facility] [place] IVC - [facility] inferior vena cav[facility]sup[facility]sup[facility] Percutaneous transluminal [facility] balloon angioplasty of aorta with stent placement for coarctation of aorta Procedure on [facility] [place] back<sup>2</sup> IVC - [facility]ion of [facility] pinky inferior vena caval filter Procedure on back [facility] nn <sup>1</sup> Plan of Care Planned Activity Planned Date Details Comments Source Future Scheduled 2019-12-09 INFLUENZA VACCINE [place] [facility] 00:00:00 [code = INFLUENZA VACCINE] Future Scheduled 2000 65+ PNEUMOCOCCAL [place] [facility] 00:00:00 VACCINE (1 of 1 - PPSV23) [code = 65+ PNEUMOCOCCAL VACCINE (1 of 1 - PPSV23)] Future Scheduled 1985 SHINGLES [facility]INES (#1) [facility] 00:00:00 [code = SHINGLES VACCINES (#1)] Future Scheduled 1951 COVID-19 VACCINE (1 of [place] [facility] 00:00:00 2) [code = COVID-19 VACCINE (1 of 2)] Encounters Start End Encounter Admission Attending Care Care Encounter Source Date/Time Date/Time Type Type Clinicians Facility Department ID 2018-11-29 Inpatient [facility] [id number] 22:21:00 2018-11-29 2018-12-01 Outpatient Maryann [facility] [id number] 22:21:00 17:00:00 Cecy Eugene Grant 2018-04-19 2018-04-19 Outpatient Morrison, [facility] [id number] 08:00:00 08:00:00 Arnaldo Clement Ginger 2018-03-25 2018-03-29 Outpatient Morrison, [facility] [id number] 15:02:00 16:28:00 Kavita 20 A 2017-04-10 2017-04-11 Outpatient Prince, [facility] [id number] 14:03:00 15:23:00 Kavita 34 A 2017-03-16 2017-03-23 [id number] 12:02:00 18:17:00 Kavita 18 A 2016-03-09 2016-03-11 Outpatient Prince, [facility] [id number] 12:18:00 16:44:00 Kavita 05 A 2016-01-17 2016-01-18 Outpatient Alexus, [facility] SL [id number] 16:15:00 12:05:00 Alverto 17 2015-05-28 2015-05-28 Outpatient Elizabeth Catalan SL SL [id number] 14:59:00 17:26:00 Abel 15 2015-04-21 2015-04-24 Outpatient Justin, [facility] [id number] 00:14:00 17:10:00 Mike Patel 46 2015-02-02 2015-02-02 Outpatient Jess, [facility] [id number] 15:30:00 19:16:00 Pop Soto 14 2014-07-06 2014-07-06 Outpatient Andrei, [facility] IE [id number] 18:18:00 22:22:00 Abdon Mas 13 2014-04-02 2014-04-02 Outpatient Kriss, [facility] IE [id number] 06:14:00 11:55:00 Terry 12 Chaitanya 2014-02-25 2014-03-05 Outpatient CoxBari jones MHIE MHIE [id number] 18:17:00 20:10:00 Lesly 11 2014-01-26 2014-01-28 Outpatient Kenny Bari MHIE MHIE [id number] 06:24:00 17:14:00 Lesly 62 Results Test Description [...] code = MCH) 30.5 pg 27.0-31.0 [facility] KpasfzgLBZKWLQRAY8801-66-48 10:20:004.2[facility]annHEMATOLOGY 2018-12-01 10:20:0010.8[facility] UeabatySZVTOWDHHI0293-05-05 10:20:0016.8[facility] EwvfifnGBUGSKWODR7794-86-36 10:20:0077[facility] YvhgoghIPMIFIODXZ1995-97-82 10:20:008.3[facility] BkehqvgRHJSGPZAFV4075-89-95 10:20:0032.3[facility] CARDIAC HWHKADS6180-19-28 10:43:000.18[facility]annCARDIAC BQNBMIS8628-29-80 07:05:000.21[facility]annCARDIAC ARWVVGB9823-79-02 07:05:65899Kywoherg HermannCHEM XYGLK8298-17-91 07:05:002.5[facility] HermannCHEM HPXAU7061-64-97 07:05:002.0[facility] HermannCHEM NUWJU3853-40-78 07:05:0035[facility] HermannCHEM OJZYB2165-32-21 07:05:0068[facility] HermannCHEM MZNFS7070-95-71 07:05:000.6 [facility]annCHEM HUXUG1412-21-23 07:05:0013[facility]annCHEM PANEL 2018-11-30 07:05:003.9[facility] HermannCHEM ZLEEF4620-51-04 07:05:0027[facility] HermannCHEM SKAWT1330-88-20 07:05:008.2[facility] HermannCHEM XGWQQ6757-98-39 07:05:55303Bpdprpex HermannCHEM IQFNN6196-93-46 07:05:007.8[facility] HermannCHEM AHPWN5486-27-02 07:05:25509Bmkbmfvs HermannCHEM UVGRP4331-25-76 07:05:002.00 [facility] HermannCHEM FOXFI3748-25-64 07:05:003.1[facility] HermannCHEM PANEL 2018-11-30 07:05:05638Okaqogfu HermannCHEM SOQZX0556-85-52 07:05:0030[facility] HermannCHEM YZUHE0690-21-00 07:05:0014[facility] HermannCHEM WUKES9993-60-62 07:05:00 Test Item Value Reference Range Interpretation Comments A/G Ratio (test code = A/G Ratio) 0.7 1 0.7-1.6 [facility]annCHEM PZWNS8683-46-97 07:05:004.7[facility] HermannCHEM PANEL 2018-11-30 07:05:009.9[facility] HermannCHEM LZSGD8526-12-77 07:05:00 Test Item Value Reference Range Interpretation Comments B/C Ratio (test code = B/C Ratio) 15 1 6-25 [facility] VzwskfuBSFRNRNIVY2629-45-72 07:05:0032.1[facility] HermannHEMATOLOGY 2018-11-30 07:05:0017.8[facility] OzqmfjbSYJNXPBHVV5842-02-99 07:05:00 Test Item Value Reference Range Interpretation Comments MCH (test code = MCH) 30.7 pg 27.0-31.0 [facility] ZnrptgfTMNGBLECGL2958-72-67 07:05:003.46[facility] HermannHEMATOLOGY 2018-11-30 07:05:004.9[facility] HnumrpoXOWSRUFJIX3653-97-60 07:05:008.2[facility] TahdxxlNDSWRTUAPL2267-19-14 07:05:0091[facility] CxllfzgTBAOQMFNJN5487-48-29 07:05:0095.7[facility] PzknrapATTDXGRJYK7251-58-50 07:05:0010.6[facility] [place] [place] JWAUQGMFTS1340-43-69 07:05:0033.1[facility] OxcngimYWCHSPZUZQ8396-64-66 07:05:00 3.0[facility] AwyzxwkIDROWAJQKX0358-98-42 07:05:001.5[facility] HermannHEMATOLOGY 2018-11-30 07:05:000.2[facility] DjrhuziQPNMDJHHHS3311-41-56 07:05:000.2[facility] DianlccRUMOXFPGFY1260-85-00 07:05:000.0[facility] OxidphgNEIVGATOJZ2227-88-43 07:05:0061.3[facility] HecgptfNAQIXHUFLH0473-43-43 07:05:0029.5[facility] [place] ZLMNHPBCTO9540-91-92 07:05:004.4[facility] YlnvkmpPMOTLZPUGJ2915-83-81 07:05:000.5 [facility] PtcpxcsQERUMKANSO6139-01-71 07:05:004.3[facility] LsnvmgyNBESUX0053-72-09 07:05:00 Test Item Value Reference Range Interpretation Comments CHD Risk (test code = CHD Risk) 1.75 1 4.00-7.30 [facility] FlicgktPKNPXH9781-47-13 07:05:00 Test Item Value Reference Range Interpretation Comments VLDL (test code = VLDL) 14 1 [facility] ArzasciKDYAKM8626-11-75 07:05:0024[facility] EeieoqgCEHBSM7645-73-61 07:05:0071[facility] UltykvaAJUOLX5043-31-19 07:05:0051[facility] HermannLIPIDS 2018-11-30 07:05:0089[facility] HermannSPECIAL EVLBJFRAS2607-32-43 07:05:006.8 [facility] PqqpfvnFYPEDFPWVN0926-15-74 18:17:00 Test Item Value Reference Range Interpretation Comments MCH (test code = MCH) 30.1 pg 27.0-31.0 [facility] LwopnvdFMRLDYPRMQ8698-11-49 18:17:0032.4[facility] HermannHEMATOLOGY 2018-03-29 18:17:0092.8[facility] UgjrwxlTWDEBATCNJ4444-70-48 18:17:0011.5[facility] QurvzdaNSKOQCVFGM1712-83-61 18:17:0035.6[facility] DjghrqzRFYPHWRZNX5028-41-74 18:17:0018.2[facility] AxkoefsEOAWGUQILY5990-33-16 18:17:009.8[facility] CYLEAEUACC9311-60-25 18:17:01389Nzwmnphu RmjawzlDUDFXBIXBF2841-38-06 18:17:005.9 [facility] EctdainKMAHYGTNHU9775-93-01 18:17:003.84[facility] HermannELECTROLYTES 2018-03-29 09:29:0010.6[facility] BlqvgexRVWBBLUZXDOW6454-76-48 09:29:23108 [facility] PmzcqqcPBWBCVXMWADA6334-08-54 09:29:0042[facility] HermannELECTROLYTES 2018-03-29 09:29:007.9[facility] CzzkhoiRKJBTOUGTRCB7031-77-25 09:29:0026[facility] RjekujqYBOUTVWSPVXQ2661-03-67 09:29:003.6[facility] LznotbyZJYXSMUYLXOY5509-46-39 09:29:68170Tvzckpde AatmdygDMSJNWJJSONP0381-04-00 09:29:77410Zmtohlom Noel DSWQHACTCNFJ7371-73-53 09:29:001.70[facility] GbhpkcwBKKFFNVNUGYO4447-75-87 09:29:0020[facility] SzirsnaGOWUMINPEF9436-40-01 09:29:00 Test Item Value Reference Range Interpretation Comments PT (test code = PT) 17.7 s 12.0-14.7 [facility] OdqrsuxVXVTEPEWMH9003-57-05 09:29:00 Test Item Value Reference Range Interpretation Comments INR (test code = INR) 1.45 1 0.85-1.17 [facility] ZqbyfwoTKBFLX4375-02-06 09:29:00 Test Item Value Reference Range Interpretation Comments CHD Risk (test code = CHD Risk) 1.69 1 4.00-7.30 [facility] FpyriylDQKULY0049-66-63 09:29:00 Test Item Value Reference Range Interpretation Comments VLDL (test code = VLDL) 13 1 [facility] TkqxnssHXGRUN9440-46-72 09:29:0016[facility] QgngjpbDEFLIB6321-67-60 09:29:0071[facility] ZpsnakoSHDKAM1566-35-51 09:29:0042[facility] HermannLIPIDS 2018-03-29 09:29:0066[facility] BosxqxpJNEWXUFWKQ0955-24-47 10:42:0062.0[facility] QzicrekVAEZDUNEMG6019-22-64 10:42:0030.0[facility] CupxegbJZMAOCCQVF3204-79-15 10:42:620584Xbdzocjh IpzpyxiRIQGBAYUVE0714-79-38 05:33:008[facility] HermannCHEM RXYGN4589-51-04 22:16:003.5[facility] MqvfuteWFOPYNRFQL5830-33-05 22:16:72337.44 [facility] CtlknekAPOBPVQKQN3613-86-67 22:16:0013.69[facility] HermannIMMUNOLOGY 2018-03-27 22:16:000.10[facility] BhmdhziZUGKOVZJJJ2599-41-68 22:16:003.25[facility] CpqaltyOIBSNECUPX9249-30-82 22:16:000.78[facility] SpfkqkhDWQPFGRHLW4808-16-70 22:16:000.32[facility] EmgfzlcWGXBPOGCYX5989-56-04 22:16:000.61[facility] UOCIHOZFNQ9079-23-53 22:16:007.0[facility] XghscjpCSHXVKJQRC5950-76-53 22:16:00 2.04[facility] GfzkidwRYGHDIFEFD0547-63-71 22:16:004.6[facility] HermannIMMUNOLOGY 2018-03-27 22:16:0046.4[facility] DvnoqgoDZERWOPZPO7248-63-50 22:16:008.7[facility] ChzfzuaIRWPPEYUAA8215-24-44 22:16:0011.2[facility] VsyvuqsICNJGUWFQU8230-96-44 22:16:0029.1[facility] HermannCARDIAC OOJOGPY5697-77-68 10:11:17744Zqsbcxal AkfkrvkMBKLQDQIBXRH6614-94-16 10:11:0010.7[facility] BkumuvrVMKSUORIEWUV9819-17-66 10:11:007.5[facility] UnzedldRPHFOKTLCDAF7263-08-94 10:11:0026[facility] THQAXZHMUZOS8030-22-08 10:11:0022[facility] BzqkogyENUHNXAVERKH0682-26-48 10:11:00 1.60[facility] EctyevcBIQHJGJGSHOP7625-33-22 10:11:01004Yvpkxdff Noel IYNMFGTGQYCU9112-71-12 10:11:96977Wyszxhlf RsjyxpkTYFRTPSUAOKB9755-40-13 10:11:003.7[facility] OzmicbkJZBWQGSAWDEB0024-12-94 10:11:0046[facility] WVLHCFMTLZEW2863-28-91 10:11:0087[facility] OzbgtjmFJETPOYYBD1653-52-56 10:11:00 Test Item Value Reference Range Interpretation Comments INR (test code = INR) 2.09 1 0.85-1.17 [facility] YqkrtgsETPHMYONGG5144-08-38 10:11:00 Test Item Value Reference Range Interpretation Comments PT (test code = PT) 23.7 s 12.0-14.7 [facility]annURINE AND HDDLL2526-21-79 14:47:00Positive *ABN*(03/26/18 8:47 AM)[facility] HermannCARDIAC XBFAZLJ5377-07-50 10:02:29071Toosdvzn Noel OVOMKASWBLTC5762-53-99 10:02:009.5[facility] ThvutbvDSZTFVHJLALG9651-22-66 10:02:0040[facility] UexeofcLVJBNQYIFMMO7270-90-34 10:02:32333Dqfxoazg Noel JCNRFBWHEUKR1359-20-97 10:02:09992Zgoafsmx MnbxassATQFVCWLMYBO2814-67-59 10:02:003.5[facility] OczmcklUXTKRPFWLDMR8157-67-29 10:02:0029[facility] IFNHKFSXFSOQ1970-45-91 10:02:007.6[facility] JywnitqIEGVZPKGNZPI9269-52-29 10:02:001.80[facility] DflrlooKSHGAJELJFLO3901-69-19 10:02:32912[place] IVHGCCREOETT1777-70-85 10:02:0025[facility] FstijjhZUPCLCNJXW9706-05-79 10:02:00 Test Item Value Reference Range Interpretation Comments PT (test code = PT) 27.1 s 12.0-14.7 [facility] XkhxfrvQUHCYKCRKS1486-48-78 10:02:00 Test Item Value Reference Range Interpretation Comments INR (test code = INR) 2.48 1 0.85-1.17 [facility] EwxdacvCCMIRMOMZX3943-49-93 10:02:001.7[facility] HermannHEMATOLOGY 2018-03-26 10:02:000.2[facility] EzqvstySAAHVSNEDA7829-25-57 10:02:001.4[facility] LtzjfkcEDXVJALHPD3068-33-25 10:02:003.5[facility] JkodoehXJCSSEIDRF0944-83-93 10:02:000.1[facility] QztkvhcLDQNDQCMSV7118-19-28 10:02:000.3[facility] ZKEOJQMHVI7892-85-61 10:02:0066.1[facility] ZimdikwYMSIAKGSSZ9734-64-30 10:02:00 5.2[facility] OkfsjknDGXGEYPFWI9238-56-05 10:02:0027.1[facility] HermannHEMATOLOGY 2018-03-26 10:02:001.4[facility] XotznjaIPXYCBQQIC3698-26-17 10:02:0033.3[facility] PxajdnoVCMFBNYMVN7895-30-51 10:02:00 Test Item Value Reference Range Interpretation Comments MCH (test code = MCH) 30.6 pg 27.0-31.0 [facility]YGTBAHRJ6333-64-11 10:02:0088[facility]annHEMATOLOGY 2018-03-26 10:02:0017.5[facility] ZjrfzuiAFKKUGGCWH3348-23-60 10:02:009.0[facility] DhqwzprMZFPCIKFPQ8217-21-50 10:02:005.3[facility] CrkljoqHGRDPLXCYI1901-31-91 10:02:0011.6[facility] DkfehqnHDEVCTDZKL7221-49-96 10:02:003.81[facility] FMKWDNWVST2464-88-21 10:02:0091.8[facility] YlcgvqxXQZAFEUNAE6671-83-31 10:02:00 35.0[facility] JbhrpozBSEZPLGKJL6144-42-18 11:24:003.78[facility]annHEMATOLOGY 2017-04-11 11:24:009.4[facility] FmotyiwVADFSXWDYS6494-23-81 11:24:0074[facility] WfxcpevDJFDZZCMOG7969-87-28 11:24:0016.3[facility] TxrekdwRAKYPZWQLP8281-94-01 11:24:0090.7[facility] CwgykkyMWCBFDCPDB6761-61-12 11:24:0033.9[facility] BKEFNSIYKP8676-39-73 11:24:00 Test Item Value Reference Range Interpretation Comments MCH (test code = MCH) 30.8 pg 27.0-31.0 [facility] WvsxgidPEUZNYPKKO9684-18-66 11:24:0034.3[facility] HermannHEMATOLOGY 2017-04-11 11:24:0011.6[facility] TnlrxrwQXCXUKORXL4248-42-08 11:24:004.2[facility] MjuihciMHEOYFLCRB9787-85-64 11:24:005.2[facility] TgphwinDAHTPDVMXO8047-64-79 11:24:002.4[facility] BdbsdkmIPOYHJWKVC8675-76-92 11:24:0058.5[facility] NQJBWEHBZW9206-46-93 11:24:0033.2[facility] PitxlzyVYAHMSNASC5598-35-50 11:24:00 0.2[facility] JnhsbbgMECHXZQCBD0332-88-63 11:24:000.1[facility]annHEMATOLOGY 2017-04-11 11:24:002.4[facility] WqxrmuqSPWTYJIVTB7909-91-04 11:24:001.4[facility] GotcanwYTSQWUCAGD8286-34-25 11:24:000.7[facility]annURINE AND WARQP7322-89-56 15:39:00Negative (04/10/17 9:39 AM)[facility] QaemanjEPRGNFRMOD1569-26-14 09:27:00 0.1[facility] FhoptuhGIDQCIOGJH9562-84-81 09:27:000.2[facility] HermannHEMATOLOGY 2017-04-10 09:27:001.5[facility] VlqamyqJXSGXLXDSJ2542-21-14 09:27:002.3[facility] WhblsmnUCMLKKSHQZ0530-04-11 09:27:000.7[facility] DnkvwnrEYBQHYYCHZ5450-27-80 09:27:002.6[facility] WdnlalzWJYGJUAPBU2015-03-38 09:27:005.2[facility] [place] LJZMYJSIHM2045-34-34 09:27:0035.9[facility] XeqyaugQDZLHOTFKL5024-66-37 09:27:00 55.6[facility] MpixkmgSSBUAAERGG0549-37-25 09:27:0058[facility]annHEMATOLOGY 2017-04-10 09:27:009.1[facility] GzloqgvWYJNNZMSXU0418-20-77 09:27:0032.5[facility] FtwscymNYIPEIXESM1171-79-13 09:27:0034.1[facility] QyzwaqtHSSBHAIAMC5201-69-14 09:27:0016.2[facility] EihmhpfXMBUUDFXKH0904-33-19 09:27:0090.3[facility] YTAVZQAWWH4594-67-87 09:27:00 Test Item Value Reference Range Interpretation Comments MCH (test code = MCH) 30.8 pg 27.0-31.0 [facility] WstuzdbWCKADFNKOI9842-92-49 09:27:0011.1[facility]annHEMATOLOGY 2017-04-10 09:27:004.2[facility] SdyldmrJJAPZEECEM4970-13-63 09:27:003.60[facility] HermannANEMIA UIFFG0224-56-88 23:26:30267Yasjvcdw HermannANEMIA ISZJC8763-54-97 23:26:007.0[facility] HermannANEMIA ALUEF5184-81-76 23:26:78607Axfijbha [place] ANEMIA AHNIN4213-46-33 23:26:0022[facility] HermannANEMIA FDJKP1477-75-30 23:26:00 176[facility] HermannANEMIA SMKWP3240-76-28 23:26:65380Zgvsbtwk HermannANEMIA IPDJD5510-47-63 23:26:0050[facility] HermannCHEM QEXAY6480-00-07 23:26:77851 [facility] HermannCHEM IWDVS0361-66-46 23:26:000.7[facility] HermannCHEM PANEL 2017-04-09 23:26:000.3[facility] HermannCHEM DESPN1732-44-23 23:26:000.4[facility] GievhfnXBFAXIHIJI1001-32-41 23:24:000.8[facility] VatpnwkGCBFGXQYHM6910-46-92 23:24:00 Test Item Value Reference Range Interpretation Comments PTT (test code = PTT) 28.0 s 22.9-35.8 [facility] InmhoeeEZLPKTZYYP3319-56-90 23:24:00 Test Item Value Reference Range Interpretation Comments PT (test code = PT) 19.1 s 12.0-14.7 [facility] IfsoucpOXSKTGURKA3636-28-04 23:24:001.59[facility] HermannHEMATOLOGY 2017-04-09 23:24:08798Nsfpxvog MpoldwnEOLVWWXUOI2819-10-16 23:24:009.69[facility] ZtqupddIKBPKQQEBE1451-65-87 23:24:0025[facility]annURINE AND HGORE1377-39-16 15:14:00<=1.0[facility]UR[facility] AND VFFAP8905-97-68 15:14:007[facility]UR[facility] AND PQVQJ3367-91-13 15:14:00Negative (04/09/17 9:14 AM)[facility] BBSPE8788-88-99 15:14:00Negative (04/09/17 9:14 AM)[facility] SAXLY7976-51-08 15:14:00Negative (04/09/17 9:14 AM)[facility] KWVMC5494-12-59 15:14:00Clear (04/09/17 9:14 AM)[facility]INE AND VRTYJ6258-69-24 15:14:001.010[facility]annURINE AND VRZHZ0242-09-86 15:14:006.0[facility]annUR[facility] AND RJUHJ6036-68-90 15:14:001[facility] URINE AND VFEVW4575-11-28 15:14:001[facility]annUR[facility] AND SZOHW5725-27-91 15:14:00Negative *NA*(04/09/17 9:14 AM)[facility] HermannCARDIAC OTZFGNG7746-46-82 02:31:50851Kcayhysy HermannCARDIAC BGLATUO8961-93-66 02:31:003.7[facility] CARDIAC KZDXGBL1958-23-74 02:31:000.18[facility] HermannCHEM TTGSQ9213-71-85 02:31:00<10.0[facility] EiyshyqVJBDZTPLUPEC9135-00-27 02:31:0011.4[facility] BvsystxWTXRHLICNHMK1576-90-44 02:31:0028[facility] BuyatoeGJSCCGPEYQZB8263-19-05 02:31:0023[facility] LdatvibWWLOJSCNUYJM1230-44-88 02:31:002.40[facility] TBHNNENXZVQT5710-99-26 02:31:73029Ikgqqptr GroghqiGEIFLKOVSOGO7400-72-80 02:31:003.4[facility] SbiabxrSMGKSDQGWVZF2647-27-54 02:31:73086Gqjdyykh [facility] WYQGRAUMYUFB6063-22-00 02:31:0026[facility] MzufirwLLXVYRHEZJEC3368-19-06 02:31:00 8.1[facility] IvsvqozHZXJYVKWDEBK0669-63-06 02:31:07734Ppcrcbvu HermannHEMATOLOGY 2017-04-09 02:31:0061[facility] BcuguzwAJPAENKQFR2915-88-87 02:31:0016.6[facility] EjonhruNKEPJPAJDF5439-70-71 02:31:0033.3[facility] WzghylpZGOFNBWNZZ2251-34-88 02:31:0091.2[facility] NooxfryHMFPJDNVOL8969-36-95 02:31:00 Test Item Value Reference Range Interpretation Comments MCH (test code = MCH) 30.4 pg 27.0-31.0 [facility] ToduyztPEOGMTUJUG3609-03-45 02:31:004.3[facility] HermannHEMATOLOGY 2017-04-09 02:31:003.84[facility] IhpauuzGBVCINRUSL4320-36-73 02:31:0011.7[facility] RwyzkudKNYKMZFXAQ0062-86-03 02:31:009.5[facility] ZgiswttQTEYURQXBO7674-48-66 02:31:0035.0[facility] XwgjtyeMYHRYLJSPB3333-50-18 02:31:00 Test Item Value Reference Range Interpretation Comments PTT (test code = PTT) 26.7 s 22.9-35.8 [facility] YazxkvwEMXZMPWOUB3431-70-52 02:31:001.67[facility] HermannHEMATOLOGY 2017-04-09 02:31:00 Test Item Value Reference Range Interpretation Comments PT (test code = PT) 19.8 s 12.0-14.7 [facility] VnjvkqtXJEWZTVNSL2311-73-94 02:31:0026.2[facility] HermannHEMATOLOGY 2017-04-09 02:31:0069.6[facility] KawewykNSRYUYJFIK3699-78-96 02:31:001.0[facility] WstelugYCVKSGRRUT4845-60-41 02:31:003.0[facility] CtmjfriLLMZTHISIB0106-94-78 02:31:000.2[facility] VvkdmqnOERUBWAIZU8686-44-27 02:31:000.1[facility] [place] ZBNXQQLNYO9049-52-59 02:31:001.1[facility] WoxtewsBHELOEDNZU1343-55-26 02:31:000.0 [facility] PypiyhoUEQTAAOKGN9799-05-32 02:31:003.0[facility] HermannHEMATOLOGY 2017-04-09 02:31:000.0[facility] WpjtitmDDVZZYMHYY1173-68-71 10:18:0010.7[facility] OnwdbwgKBGCNZWXQW9613-12-03 10:18:0092.8[facility] WkoipntVWNVHRAOQB9026-16-66 10:18:00 Test Item Value Reference Range Interpretation Comments MCH (test code = MCH) 30.5 pg 27.0-31.0 [facility] RquqariDTNLVBMGGN7733-20-00 10:18:0012.3[facility] HermannHEMATOLOGY 2017-03-23 10:18:0037.5[facility] SrkckbrWAOUAIJGYD1937-40-35 10:18:0032.9[facility] OeccquaZGHDOPFJXF4598-87-90 10:18:0041[facility] HxgmstaODGXLJTVYQ4229-76-30 10:18:0016.7[facility] AameayhMZBIQFOKYD2636-00-76 10:18:006.8[facility] [place] CGVOYPKSXJ4648-81-80 10:18:004.04[facility] LayiqojYFQJDAXEZG4858-52-59 10:18:00 0.1[facility] OnbsrzvJLWRHCRECD6316-47-55 10:18:003.2[facility] HermannHEMATOLOGY 2017-03-23 10:18:001.3[facility] VvhmjhsZZSFZJADNI1148-31-71 10:18:0073.3[facility] KmgdlrsNKTJSTNFAE2205-29-41 10:18:0022.1[facility] RpilgkyKUKFSXTCXI5873-00-05 10:18:000.0[facility] HpjmfwkXIICGJTTQL8752-90-62 10:18:000.2[facility] [place] MSSRNXQVMD8097-69-83 10:18:000.1[facility] VzrayfvGZMCJJATSU5365-68-23 10:18:005.0 [facility] RglqkviGRCLJOYPTI2129-85-03 10:18:001.5[facility] HermannELECTROLYTES 2017-03-22 10:26:0015.8[facility] IcpwizfEKTQEIWTLXIP3483-58-14 10:26:008.8 [facility] UvbmcwpSUHGPDTQNERN1010-23-91 10:26:0026[facility] HermannELECTROLYTES 2017-03-22 10:26:19441Irywpknz VnmanneBEVVERBPRWEA3859-25-65 10:26:0040[facility] NkfsyezDWPACEQEWRII5320-82-93 10:26:0096[facility] GtpedvqYXMADWIIMFTP4576-09-56 10:26:003.8[facility] XbxiwmxODXHANVBLXGD8977-03-44 10:26:0025[facility] [place] LFNPPOLXVHGS4804-31-07 10:26:58956Qvloczks OnuhqylZTWNRBCFCJLQ0545-69-35 10:26:002.60[facility] MhzgemoNBBQWXUPBT9721-95-84 10:26:000.3[facility] YNCEPTIYYN3488-29-85 10:26:001.2[facility] KtfmvecLGXBEFURJQ4765-48-30 10:26:000.1 [facility] SjxubsoRQYSZULLIE4754-62-17 10:26:003.7[facility]annHEMATOLOGY 2017-03-22 10:26:0069.6[facility] FabqpxzWXNMJBJBCQ1325-06-44 10:26:0023.0[facility] FewroqaLFHODZDDWZ7919-30-93 10:26:001.9[facility] HdylhyfIGGSZUMVAO3828-10-68 10:26:004.9[facility] DoknaigYYMXTOJBVG7237-73-04 10:26:000.6[facility] OGJASVYZUV4033-17-08 10:26:0033.2[facility] CvithfxBPPFMKWCFE3877-45-67 10:26:00 92.0[facility] WdhwiyrWZFLLZWBUM8450-52-88 10:26:0011.9[facility]annHEMATOLOGY 2017-03-22 10:26:00 Test Item Value Reference Range Interpretation Comments MCH (test code = MCH) 30.5 pg 27.0-31.0 [facility] KsancwuQXHVRYURAG6517-47-50 10:26:0035.7[facility]annHEMATOLOGY 2017-03-22 10:26:008.9[facility] PedfkrjRPMGGPBEBL7222-73-27 10:26:0058[facility] FbflgacBWPIATKHZW6254-90-65 10:26:0016.4[facility] BrpdzazAVAFZLYPNR1518-58-41 10:26:003.88[facility] EwqpvyxCQRARQKQRH7348-63-93 10:26:005.3[facility] MKBWDHUALKQO6673-72-23 09:55:0014.5[facility] BuccnmqFRQDZTNBOLRZ7236-21-71 09:55:0022[facility] TkbuqnvXWSOXKGTILIU0462-89-47 09:55:002.90[facility] GPVCZAGABJIL3183-20-38 09:55:0044[facility] ZykefmeHIMVFGWPINQW9265-74-15 09:55:00 97[facility] DizpjerOCKRIXWWGDCM2081-65-07 09:55:82488Lsofdawj HermannELECTROLYTES 2017-03-21 09:55:003.5[facility] NbafbtnGRLLBLJAADXP0557-96-42 09:55:009.0[facility] JgyzmabVWWIYBRKQLBO1175-97-42 09:55:0027[facility] VybbiliAORKSLBFRPLG3729-58-69 09:55:40674Mvcmaiky WuinzxrYIYMPOADKH5879-45-61 09:55:000.0[facility] NLVRDCBIJG9917-57-81 09:55:001+ *ABN*(03/21/17 3:55 AM)[facility] RVFMVQORNJ0827-12-81 09:55:001.4[facility] HnlsgdjQNHJOJMFED5303-69-46 09:55:004.9 [facility] TqzhisxKQXWPHATOA2276-42-13 09:55:0027.5[facility]annHEMATOLOGY 2017-03-21 09:55:000.2[facility] NozlkrwVQTYCUAGHW8872-19-56 09:55:001.4[facility] MbabxlaAPJSLUKIXN9107-24-12 09:55:000.6[facility] PlxsrtmYUSDOZGFLV4802-54-72 09:55:003.3[facility] HjkbacePIKYWXVYER5560-45-38 09:55:0065.6[facility] FJGEUAOQMX4423-74-15 09:55:000.1[facility] KqmjyvtTUHLRCRJEI2018-91-51 09:55:00 Test Item Value Reference Range Interpretation Comments PT (test code = PT) 14.3 s 12.0-14.7 [facility] HwenhdpNBASMBSHGL0013-89-69 09:55:001.11[facility]annHEMATOLOGY 2017-03-21 09:55:0012.0[facility] HuqeevdDVWASKFEAW9055-54-17 09:55:0035.4[facility] MpsvpnnHYJSAZGFWG7681-39-59 09:55:0091.2[facility] FmebzysPKYDSHJNPF7389-90-86 09:55:003.88[facility] PzfzhlcOLCPWOFNUS4292-19-75 09:55:005.0[facility] KDVISDJKSG3159-59-89 09:55:0016.3[facility] ScimbmiJHWQOOXEOQ4113-18-62 09:55:0065 [facility] FjhwpjfVLIHHXIWWP3244-94-39 09:55:008.8[facility]annHEMATOLOGY 2017-03-21 09:55:00 Test Item Value Reference Range Interpretation Comments MCH (test code = MCH) 30.8 pg 27.0-31.0 [facility] ZcbfzkzDFISAGTMFI6972-46-35 09:55:0033.8[facility] HermannIMMUNOLOGY 2017-03-21 09:55:00Negative (03/21/17 3:55 AM)[facility]annELECTROLYTES 2017-03-20 11:35:0016.2[facility] NzikhnjAITTIMBXVDBY6449-46-02 11:35:0024[facility] MrcgbquJNJWFSZMEFDI9964-09-15 11:35:009.1[facility] OqikligKZDRXUGAFJOF0865-02-37 11:35:0095[facility] DcqonxpHSWLQYROJNST0872-97-18 11:35:0043[facility] LUNOBCJWUYRZ4583-48-80 11:35:0098[facility] BszuonuEHIKKSNYVJGA5910-51-88 11:35:00 3.2[facility] GojdefeZGSKYNBNTEMA0395-32-38 11:35:0024[facility] HermannELECTROLYTES 2017-03-20 11:35:96192Evtrotsi MraahskXEJPQQZFBIVA2416-73-53 11:35:002.70 [facility] YcyhcvqININVTTCUP7490-42-75 11:35:00 Test Item Value Reference Range Interpretation Comments PT (test code = PT) 14.4 s 12.0-14.7 [facility] QunimadVCGMOPDETZ4499-63-30 11:35:001.12[facility]annHEMATOLOGY 2017-03-19 11:42:001.20[facility] KreefsnPNXXIBIFWJ0238-00-16 11:42:00 Test Item Value Reference Range Interpretation Comments PT (test code = PT) 15.3 s 12.0-14.7 [facility]annCHEM ETQKH3608-12-38 14:57:002.3[facility] HermannCHEM PANEL 2017-03-18 14:57:002.9[facility]annCHEM NUBSE3204-96-95 14:57:002.0[facility] JyqpivxXUWUHLJIGM8087-69-71 14:57:000.0[facility] AaysngwMPQDAARYRX5887-15-55 14:57:00 Test Item Value Reference Range Interpretation Comments PTT (test code = PTT) 38.2 s 22.9-35.8 [facility]XLW9960[facility]-27 14:57:00<10[facility]annHEMATOLOGY 2017-03-18 07:48:00 Test Item Value Reference Range Interpretation Comments PTT (test code = PTT) 49.8 s 22.9-35.8 [facility]XuiybbsVYGVUVMTBY1987-91-96 02:24:00 Test Item Value Reference Range Interpretation Comments PTT (test code = PTT) 33.2 s 22.9-35.8 [facility] HospitalDvcqmoiAGQWVRHJWJ0640-44-04 18:58:003.61[facility]annHEMATOLOGY 2017-03-17 18:58:48493Jkhtgtzm UacumbuXERIYKLZAL6340-79-07 18:58:00Negative 1(03/17/17 12:58 PM)[facility] HospitalMumeawuBXCLRRTQSJ2212-62-73 18:58:00 Test Item Value Reference Range Interpretation Comments Pat Od Value (test code = Pat Od 0.069 1 Value) [facility] HospitalGxzgwkrFZOHYZZHVH2008-68-24 18:58:00 Test Item Value Reference Range Interpretation Comments Pos CO Value (test code = Pos CO 0.400 1 Value) [facility]annCHE[facility] SYEPB8260-52-86 10:09:003.0[facility]annCHEM PANEL 2017-03-17 10:09:002.4[facility]annCHEM UVEYW5574-49-68 10:09:002.3[facility]annURINE AND TIYII7566-47-80 02:57:006.0[facility]annUR[facility] AND STOOL 2017-03-17 02:57:001.012[facility]UR[facility] AND EZGHB1565-54-25 02:57:00 <=1.0[facility] AND UYQWF3313-30-79 02:57:001[facility] AND JXJIM6137-55-12 02:57:00Negative (03/16/17 8:57 PM)[facility] KWTZA4490-30-58 02:57:00Negative (03/16/17 8:57 PM)[facility] GNRQP3738-84-57 02:57:00Negative (03/16/17 8:57 PM)[facility] YLQGB2679-81-07 02:57:00Negative *NA*(03/16/17 8:57 PM)[facility] LSJNQ8014-38-83 02:57:00Clear (03/16/17 8:57 PM)[facility] CHEM 2017-03-17 02:57:000.1[facility]annURINE YHAB7106-46-75 02:57:00None Seen (03/16/17 8:57 PM)[facility] IJFD7627-89-45 02:57:71907.00[facility]annUR[facility] BWTG9374-27-79 02:57:0014.8[facility]annURINE QVAU6928-90-26 02:57:0033[facility] HermannCARDIAC ICIVLJL3939-80-14 19:09:001.8[facility] CARDIAC UVLPLNG5791-02-69 19:09:71079Mnbtrjjc HermannCARDIAC ERJBHHP4426-91-63 19:09:002.1[facility]annCARDIAC XPHRMWC1615-34-43 19:09:000.15[facility]annCARDIAC RHANNRF4918-33-49 19:09:57263[place] HermannCHEM NWKKL4954-03-95 19:09:000.07[facility] BrtdmwqTURXKEUFNZ2595-17-78 19:09:0054[facility] CPMYNZZVRDNQ9134-51-35 09:32:0015.7[facility] JpjphytHSZWPRHJONFM9166-75-58 09:32:0024[facility] CkwowanDHGTJAAMGLCS6023-94-09 09:32:74675Stfkxipb Noel DXTDFJRKJVCD4653-77-71 09:32:003.7[facility] TumllghXFNZPDCJYJCB8272-56-29 09:32:74495Jwafyses OovobanTNIFOURPILCF6731-00-23 09:32:0043[facility] UUNSETABODTV1627-11-55 09:32:007.9[facility] EghiglbEPGBDTATKBTW8243-29-96 09:32:40220Ydukvhqa AblvtrnCETEDSKUGEYC1433-34-18 09:32:0034[facility] FYDSIMFBBCAN0326-20-14 09:32:001.70[facility] ZwbdfcxPCRAYR4746-36-61 09:32:0017 [facility] BspvmzmGOWJKN1810-43-42 09:32:0031[facility] KyjzocuSQHSUG2253-91-23 09:32:97169Pxsohhhb QuimcfyUSUZZY8979-66-81 09:32:0085[facility] HermannLIPIDS 2016-03-11 09:32:001.89[facility] FsydgwiMTYUMH3790-44-40 09:32:0054[facility] HermannCARDIAC EPYHHEO0005-64-04 21:57:89198Edbruftw HermannCARDIAC ENZYMES 2016-03-09 21:57:002.0[facility]annCARDIAC BHHFLVD0417-75-75 21:57:000.19 [facility]annCARD[facility]AC AEGMWCR0138-51-24 21:57:001.7[facility]annCARDIAC JPMXGIG6229-50-69 21:57:0084[facility] HermannCHEM YADCH5138-72-20 21:57:0035 [facility]annCHEM SHIKT1734-80-55 21:57:0029[facility]annCHEM PANEL 2016-03-09 21:57:003.8[facility] HermannCHEM YRAVS2162-45-72 21:57:008.2[facility] HermannCHEM VMTAG9349-42-13 21:57:54929Otihqhbd HermannCHEM YJUHH4992-38-08 21:57:01407Xgmtmvrd HermannCHEM FMQVZ8656-69-58 21:57:002.00[facility]annCHEM WMRZU6428-22-13 21:57:0034[facility] HermannCHEM HTYAM7211-86-41 21:57:11581 [facility]annCHEM VBOZK7805-04-37 21:57:0013.8[facility]annHEMATOLOGY 2016-03-09 21:57:0010.1[facility] ZnnfkftKOFGNVUSYD4975-05-51 21:57:87599Lnjbylfz ZmddfgrCKBHWWBOLC6977-24-91 21:57:0018.7[facility] ZmbomanVNQCQJYOBS2494-99-89 21:57:0012.4[facility] CtxmgrnYTNXVYGSZJ6499-72-48 21:57:0032.0[facility] PKYZTMZTNQ3953-57-45 21:57:00 Test Item Value Reference Range Interpretation Comments MCH (test code = MCH) 27.8 pg 27.0-31.0 [facility] MqxrlnzXMEZPMPLRB7282-29-48 21:57:0086.7[facility] HermannHEMATOLOGY 2016-03-09 21:57:0038.7[facility] QvljfmdYOLBAYSHXL5778-38-83 21:57:004.46[facility] PwbhzepSCIHFKEBRO5403-80-60 21:57:006.5[facility] EtovjicROOLCKVSIG9397-23-37 21:57:003.9[facility] WflqiyjZXIAHYRLML0956-43-60 21:57:002.0[facility] NXZHKSCBHH0909-74-14 21:57:004.1[facility] AdqodqyCCNDKKACSZ0713-42-52 21:57:000.0 [facility] IzrkzibVPONDNMOFY7022-16-62 21:57:000.5[facility] HermannHEMATOLOGY 2016-03-09 21:57:001.7[facility] HzjswbjZMVGREIOJH1385-33-33 21:57:000.1[facility] OfjqccbKGHVIIIOOC9793-63-59 21:57:000.3[facility] SwllzcyGSCDJBVTYA3453-52-91 21:57:0030.7[facility] YmcgxxiUNLBXGTYNR6961-47-82 21:57:0063.2[facility] URINE AND HEGJO6238-71-81 21:57:006[facility]annURINE AND IQSNC2102-89-54 21:57:001[facility]annUR[facility] AND GIIVB3844-81-63 21:57:00Small *ABN*(03/09/16 4:57 PM)[facility] LXAGM4042-50-22 21:57:00Negative (03/09/16 4:57 PM)[facility] QFSYY2140-48-69 21:57:00<=1.0[facility] AND QTIJX9096-59-04 21:57:00Negative *NA*(03/09/16 4:57 PM)[facility] FGJFV4055-12-77 21:57:00Negative (03/09/16 4:57 PM)[facility] FNLLA1797-93-66 21:57:007.0[facility]UR[facility] AND STOOL 2016-03-09 21:57:00Clear (03/09/16 4:57 PM)[facility] STOOL 2016-03-09 21:57:00Light Yellow *NA*(03/09/16 4:57 PM)[facility] PFAHI9956-10-80 21:57:001.009[facility]annCARDIAC JHNCUJN0562-56-32 09:41:00 1.0[facility]annCARDIAC DZJXNUX0441-15-27 09:41:000.9[facility]annCARDIAC HSSRQHS7722-15-07 09:41:000.17[facility]annCARDIAC JREHMZA3920-71-94 09:41:00 91[facility] UllhkraWEBRPYSCYIKT2482-48-68 09:41:0012.1[facility] WKUNOAIAXBBS8925-24-27 09:41:004.1[facility] YmobbfgTZILWUDOWTLI5418-63-63 09:41:28440Nmxegsmy TaigzqqCOCZEVVCNDNY6151-11-62 09:41:0034[facility] NCVXINEOSJVS4092-09-22 09:41:0030[facility] AhfishbWBPJCPNFPXGD8586-42-89 09:41:00 8.5[facility] RitlglpNBMRXNDOOFKZ5945-38-65 09:41:0093[facility] HermannELECTROLYTES 2016-01-18 09:41:0027[facility] MfeypxkNLZSREICKYUN5053-25-76 09:41:002.05[facility] WbmdscuEFERCDZGXWKW0408-33-53 09:41:21388Kbvaegri IhmrchwMRKBWCEXZX4536-85-76 09:41:0087.5[facility] JyipxfqXHAHJKBZXO6663-95-10 09:41:00 Test Item Value Reference Range Interpretation Comments MCH (test code = MCH) 28.0 pg 27.0-31.0 [facility] FxqnnepWKSPWFFZHK0048-02-11 09:41:0017.7[facility] HermannHEMATOLOGY 2016-01-18 09:41:0032.0[facility] UhequlnSTNHTQNIKP6069-94-40 09:41:008.8[facility] YislqrqEOGJVCATSE0898-45-10 09:41:12198Ttafytjr CmjynojPVKTVIQDRD2954-44-66 09:41:005.2[facility] AconjngLMQZNMXPKA8822-52-90 09:41:0032.9[facility] TOVDBTCVQX4088-71-42 09:41:0010.5[facility] SgoxmbrTSWSKIOXEH3713-23-13 09:41:00 3.76[facility] NwthjtaUPSWMSVTMT8192-72-49 09:41:005.9[facility] HermannHEMATOLOGY 2016-01-18 09:41:0053.3[facility] CyiettnAOITETOUBP7401-33-76 09:41:003.7[facility] GjydaliHSHWLBXJLF3459-22-33 09:41:0036.8[facility] EpiffvvHJAFRAXLRR4673-42-97 09:41:001.9[facility] YxmrpemAGNJGAILWZ7038-98-54 09:41:000.3[facility] VZUOXTOLKJ3681-53-20 09:41:002.8[facility] CpzkbjxQCOCWKHAQL5097-12-55 09:41:000.0 [facility] PxsrhazWKDMFSDSGP4341-39-21 09:41:000.3[facility] HermannHEMATOLOGY 2016-01-18 09:41:000.2[facility] JnxldozSEHXFL5157-96-80 09:41:0017[facility] NzvyrbpYYKSUL1469-31-31 09:41:0034[facility] MudhfhxCMWFUW0783-98-51 09:41:0084 [facility] QthmjqeKSHNNY6547-46-47 09:41:0051[facility] GuuxgtyBABEVV6824-31-21 09:41:47694Qjhwzjkq IrxnihrHLWNWI6090-98-31 09:41:002.00[facility] HermannCARDIAC BIDQDKG5750-34-91 02:20:001.3[facility]annCARDIAC AINHQIZ0424-77-33 02:20:00 1.2[facility]annCARDIAC AMMMXHC7262-20-28 02:20:000.16[facility]annCARDIAC BXNGKJO2752-03-38 02:20:0095[facility] JmbwjiuKGIXKCVWZF6405-26-85 02:20:00 Test Item Value Reference Range Interpretation Comments PTT (test code = PTT) 28.0 s 22.9-35.8 [facility] KoxococRUCNFBSZQB7762-14-04 02:20:001.22[facility] HermannCARDIAC ENZYMES 2016-01-17 21:51:001.6[facility]annCARDIAC DSTGIMO5640-52-83 21:51:000.18 [facility]annCARDIAC EGXXBLU0265-64-56 21:51:19390Szrlrbhh HermannCARDIAC FCFHLGR5581-28-34 21:51:51928Ebuiulbl HermannCARDIAC MSHEZQU3184-20-25 21:51:00 1.5[facility] HermannCHEM ZNRWE8525-08-52 21:51:0035[facility] HermannCHEM PANEL 2016-01-17 21:51:000.6[facility] HermannCHEM WOTCG2632-31-28 21:51:005.1[facility] HermannCHEM MLUSX2390-68-12 21:51:0013[facility] HermannCHEM ISAOI5402-72-40 21:51:0082[facility] HermannCHEM IQUVS0656-41-39 21:51:0011.9[facility] HermannCHEM DJJXD2075-36-47 21:51:000.3[facility] HermannCHEM TISEM4223-57-71 21:51:0012 [facility]annCHEM ORIOC4415-42-98 21:51:0014[facility] HermannCHEM PANEL 2016-01-17 21:51:003.1[facility] HermannCHEM BXTWX8438-53-67 21:51:0027[facility] HermannCHEM GGXWA1377-56-91 21:51:90335Unriqgnm HermannCHEM PFRRG5499-50-73 21:51:008.2[facility] HermannCHEM TQUPR5039-44-91 21:51:008.1[facility] HermannCHEM LOHUH8309-49-06 21:51:002.02[facility] HermannCHEM JKDFY5077-63-62 21:51:0028 [facility]annCHEM OOCZG9925-35-31 21:51:32069Mnybpvib HermannCHEM PANEL 2016-01-17 21:51:003.9[facility] HermannCHEM AJUJY4752-53-49 21:51:14776Nogjdpew DyczrnhGWUKSZPVEC2714-19-23 21:51:0032.7[facility] BnxlwgeTGDCWGVXKH7751-29-50 21:51:0087.5[facility] YrltsabMLRBMSYRZB1516-39-61 21:51:00 Test Item Value Reference Range Interpretation Comments MCH (test code = MCH) 28.0 pg 27.0-31.0 [facility] SamdjryHCZEDLMCWE2909-58-94 21:51:0032.0[facility] HermannHEMATOLOGY 2016-01-17 21:51:0017.9[facility] EieqgrvMOAGCHKFJE4422-19-71 21:51:52203Rkmvohmj BfdwmjmGGLJTYRNUO1639-06-39 21:51:008.3[facility] RrxxkxaPVBUKWAHBB6895-28-20 21:51:005.5[facility] QqbjmerENXQZOUJVL1892-85-94 21:51:003.73[facility] STCXQHMTRO7415-31-50 21:51:0010.4[facility] NpzupwhLVIBIIFEEA4506-82-62 21:51:00 33.3[facility] ZqjtosjPTUUKOUTEK4550-22-56 21:51:002.5[facility] HermannHEMATOLOGY 2016-01-17 21:51:005.8[facility] NqqbfbmYHXDHWYJGV9931-54-28 21:51:000.3[facility] LmsgtqeTLXZODHPJK0987-95-95 21:51:003.2[facility] VqwmklkUWYZVGJGFV6541-95-86 21:51:001.8[facility] JfkgcwgJDYLWSYFLB3715-15-44 21:51:000.3[facility] YDZTXOJGYN1883-90-75 21:51:000.1[facility] XylubtbCSFXWKOQJB0058-62-61 21:51:000.0 [facility] JrerrabSDQJUSPWDK1390-98-83 21:51:0058.1[facility] HermannCHEM PANEL 2015-05-28 21:44:0047[facility] HermannCHEM XHIKT6806-66-59 21:44:0012[facility] HermannCHEM UMRGD5549-38-08 21:44:003.5[facility]annCHEM CZWKJ9160-41-06 21:44:007.7[facility] HermannCHEM XCKUF9710-72-87 21:44:0076[facility]annCHEM FJOKV1406-23-63 21:44:000.4[facility] HermannCHEM QPHHY6366-38-61 21:44:0017 [facility]annCHEM MNOFU0905-46-79 21:44:001.60[facility] HermannCHEM PANEL 2015-05-28 21:44:56219Ezwrrnri HermannCHEM YARGN2396-92-69 21:44:004.3[facility] HermannCHEM PXJEB0014-19-80 21:44:03217Zxunipif HermannCHEM XDGDN1775-98-46 21:44:008.5[facility] HermannCHEM PMVBD7247-30-01 21:44:0028[facility]annCHEM RKOGC6903-28-82 21:44:0082[facility] HermannCHEM SNEEM4260-81-36 21:44:0027 [facility]annCHEM KWYXR8788-55-55 21:44:000.8[facility] HermannCHEM PANEL 2015-05-28 21:44:004.2[facility] HermannCHEM XGIUC1013-94-13 21:44:0010.3[facility] HermannCHEM QPNTE1582-36-50 21:44:0017[facility] UclowcnSUFDGMQIID5453-00-98 21:44:00 Test Item Value Reference Range Interpretation Comments PTT (test code = PTT) 23.6 s 22.9-35.8 [facility] GebshypZEOKHBVBKN3881-80-14 21:44:001.12[facility] HermannHEMATOLOGY 2015-05-28 21:44:00 Test Item Value Reference Range Interpretation Comments PT (test code = PT) 14.7 s 12.0-14.7 [facility] LxumwydQXOFGONLSA3993-34-26 21:44:0072[facility] HermannHEMATOLOGY 2015-05-28 21:44:009.8[facility] AjbdpvlSNJJYNNOWL9648-91-49 21:44:0018.5[facility] WyuyqgyUQWLKUTSTS5855-27-95 21:44:0033.3[facility] IyfktmoWBFXYAONKN6103-04-39 21:44:0087.0[facility] BlapggaXEAXUQVHER4412-88-13 21:44:00 Test Item Value Reference Range Interpretation Comments MCH (test code = MCH) 28.9 pg 27.0-31.0 [facility] LuebcqfAEATXAGJIV9263-00-47 21:44:0036.7[facility] HermannHEMATOLOGY 2015-05-28 21:44:0012.2[facility] JhrfgujRNQTAOKQLG1037-90-18 21:44:004.22[facility] EiiytqbTBGJDCHRNB3594-88-07 21:44:005.9[facility] SpppeyxXSTLWGALAN4774-20-23 21:44:000.1[facility] QrwfhpeUXRJXHQJFY3987-54-04 21:44:000.0[facility] UFDDXHJBJF3853-88-74 21:44:000.5[facility] NhtjmhpBAEUWRJAEX4098-33-10 21:44:001.7 [facility] EhvzfnsYAEZKRPSUA9665-93-70 21:44:003.6[facility] HermannHEMATOLOGY 2015-05-28 21:44:002.3[facility] SodjvtcRODTVCCNKC2240-98-32 21:44:008.0[facility] GltjztrTAKPMDBJJQ3457-99-14 21:44:0028.5[facility] IyqctsiFYLKHJYVLZ3186-19-97 21:44:000.3[facility] RbuyxafUBINDDVOGS5110-75-57 21:44:0060.9[facility] URINE AND QUTNT2209-27-70 21:44:00None Seen (05/28/15 3:44 PM)[facility] URINE AND KYUJQ2151-44-53 21:44:00None Seen (05/28/15 3:44 PM)[facility]INE AND XNWRJ2528-40-81 21:44:00Large *ABN*(05/28/15 3:44 PM)[facility]INE AND XFIGS4491-71-92 21:44:000.2[facility]annUR[facility] AND MVGKA9362-34-40 21:44:00Positive *ABN*(05/28/15 3:44 PM)[facility] VGYKA9405-93-14 21:44:00 Test Item Value Reference Range Interpretation Comments UA Spec Grav (test code = UA Spec 1.015 1 Grav) [facility] NOQHL6659-39-84 21:44:00Slight Cloudy (05/28/15 3:44 PM)[facility] MQLMP2853-64-84 21:44:00 Test Item Value Reference Range Interpretation Comments UA pH (test code = UA pH) 7.0 1 5.0-8.0 [facility] IMLHZ4730-43-60 21:44:00Yellow *NA*(05/28/15 3:44 PM) [facility] IIBDS8206-97-43 21:44:00Negative (05/28/15 3:44 PM) [facility] GRDGP8419-85-74 21:44:00Negative *NA*(05/28/15 3:44 PM) [facility] QWOAP2590-65-26 21:44:00Moderate *ABN*(05/28/15 3:44 PM)[facility] GAPWP2958-93-01 21:44:00Negative *NA*(05/28/15 3:44 PM)[facility] ZygwippXENKJCVYKT8676-13-56 20:07:00 Test Item Value Reference Range Interpretation Comments POC PT (test code = POC PT) 12.2 s 12.0-14.7 [facility] MzqhxiwQFTHRHBZRC4989-75-68 20:07:001.0[facility] HermannCARDIAC ENZYMES 2015-04-22 00:26:000.9[facility]annCARDIAC IPCFFMY2882-26-43 00:26:000.20 [facility]annCARDIAC SEOBWAV0259-99-70 00:26:001.6[facility]annCARDIAC LAZFMYC1349-80-56 00:26:74199Lkjlnljv HermannCARDIAC XPYXOJD5857-47-58 17:11:00 0.24[facility]annCARDIAC SBIWSNL6429-65-93 17:11:002.3[facility]annCARDIAC JRYGZWW8377-48-64 17:11:16045Pjkefokv HermannCARDIAC GIPQLOO2466-44-50 17:11:00 1.7[facility]annCARDIAC FOYYUTY5381-62-99 09:10:30602Hrnbftsn HermannCARDIAC PBFRHHG2871-94-42 09:10:001.8[facility]annCARDIAC UTBVCDD1871-48-05 09:10:00 0.24[facility]annCARDIAC AUPCQWP3831-98-84 09:10:84403Mcbjucwt [facility]annCARDIAC GWLCZYG9832-33-44 09:10:001.4[facility] HermannCHEM OFSTS2025-57-97 09:10:002.2 [facility]annCHEM KFANP6209-72-31 09:10:002.0[facility] HermannCHEM PANEL 2015-04-21 09:10:0097[facility] HermannCHEM YRGAK5773-73-61 09:10:0020[facility]annCHEM LMCZI8175-37-37 09:10:006.9[facility]annCHEM WGTZX1326-49-53 09:10:003.1[facility] HermannCHEM EGOWG5106-64-28 09:10:0018[facility]annCHEM QNZUR1666-68-28 09:10:001.70[facility]annCHEM KZGHI6198-28-64 09:10:20314 [facility]annCHEM TUZEG0072-56-06 09:10:37081Lvpepdxx HermannCHEM PANEL 2015-04-21 09:10:0073[facility] HermannCHEM CCMLO0503-13-48 09:10:003.6[facility]annCHEM IYYGR7401-02-05 09:10:0024[facility]annCHEM HFNOH7378-02-16 09:10:0043[facility]annCHEM QESPE9774-95-46 09:10:008.2[facility] HermannCHEM AXOYW5071-46-37 09:10:0027[facility]annCHEM IRLBI2599-94-39 09:10:000.5 [facility]annCHEM BWGOW1422-86-96 09:10:0012[facility] HermannCHEM PANEL 2015-04-21 09:10:003.8[facility] HermannCHEM HSRUP3533-23-48 09:10:000.8[facility] HermannCHEM DGBSQ1168-34-87 09:10:0011.6[facility] ShxljjxDLIYVMHSBN7946-53-37 09:10:0088.7[facility] FohdzwfICEXJRQRIY3392-55-02 09:10:003.94[facility] XYRDFJSNUI8899-63-26 09:10:0011.1[facility] YwmlonxAIPEOCFBFX6269-35-23 09:10:00 4.8[facility] VrvzjvzIVMEXJDLBH1748-70-27 09:10:0035.0[facility]annHEMATOLOGY 2015-04-21 09:10:0085[facility] AylwaihEMQBZCVVHK1821-58-55 09:10:00 Test Item Value Reference Range Interpretation Comments MCH (test code = MCH) 28.3 pg 27.0-31.0 [facility] ZdsiturDZTHZXAWDT1272-80-64 09:10:0031.9[facility] HermannHEMATOLOGY 2015-04-21 09:10:0017.7[facility] NuwsjgdRPFFTUWPSD4387-60-30 09:10:0010.2[facility] KijsejzHYEKNSBWYY2823-08-28 09:10:0029.8[facility] PzefhtcHNCWPPGJNX4359-13-43 09:10:005.3[facility] GvwdftdDVQBVZMRUY6896-61-35 09:10:003.2[facility] YFWGLDOTAA8539-59-41 09:10:0061.4[facility] MneosfqSILLQNIYZP4182-49-68 09:10:00 3.0[facility] HwysmizAXVRBDCGEQ1320-16-73 09:10:001.4[facility] HermannHEMATOLOGY 2015-04-21 09:10:000.3[facility] NtfhczmJZVPWAXYQZ2370-13-08 09:10:000.0[facility] SxwmknjPRXSZDGPZX1465-32-06 09:10:000.3[facility] GufiviyPHKPCAVUCT8315-69-64 09:10:000.2[facility] HxcaityNYDDIC7077-90-02 09:10:002.04[facility] HermannLIPIDS 2015-04-21 09:10:0014[facility] NhipyeyPSSROI3141-13-48 09:10:0033[facility] UEFJAP6199-64-78 09:10:0092[facility] PcfimvnOSZASX7753-88-11 09:10:0045[facility] KcgsogjAJCSKR5310-52-04 09:10:0070[facility] HermannSPECIAL WHUJFFRNY7200-99-65 09:10:005.7[facility] HermannCARDIAC LOVZVYB0232-52-12 22:04:0066[facility] CHEM ENIXJ1107-46-27 22:04:0038[facility] HermannCHEM BFAAN4890-87-41 22:04:0020 [facility] HermannCHEM WALMP2357-15-57 22:04:50721Dhnskoux HermannCHEM PANEL 2015-02-02 22:04:0016[facility] HermannCHEM PSKPT0954-54-19 22:04:000.7[facility] HermannCHEM SJUAA9680-37-70 22:04:003.4[facility] HermannCHEM LKNOZ8645-00-36 22:04:31968Rgcbmlvq HermannCHEM IVAWL7722-24-40 22:04:003.4[facility] HermannCHEM RKOZM1630-95-39 22:04:008.3[facility] HermannCHEM QJDTM7770-00-11 22:04:0025 [facility]annCHEM MAUJI3964-62-74 22:04:008.7[facility] HermannCHEM PANEL 2015-02-02 22:04:0013[facility] HermannCHEM GAYJX8516-65-58 22:04:33818Lhdzvtoz HermannCHEM RLHQS8021-59-65 22:04:001.9[facility] HermannCHEM OBUZS3182-20-94 22:04:64757Zufjpjrq HermannCHEM OSKAB6751-63-52 22:04:000.7[facility] HermannCHEM HGRPI3863-57-80 22:04:007[facility] HermannCHEM CBJXZ5338-83-09 22:04:004.9 [facility] HermannCHEM MSDIQ4105-04-02 22:04:0010.4[facility] HermannHEMATOLOGY 2015-02-02 22:04:0016.8[facility] EgzqeteGUVKFACWAD8475-42-48 22:04:60635Jmfcybrt FnjumjxTTOYEIRGFN9625-41-19 22:04:008.2[facility] OdmqnhuWAXTFGKQLV0798-72-56 22:04:005.1[facility] EumxeraRCVVQKJKFA6620-29-74 22:04:0011.3[facility] YZFHGBWEYR1220-24-73 22:04:0036.3[facility] MfuimpwEVVIVQMVOG3306-42-72 22:04:00 31.2[facility] XyvypkeMFDYKUCDYT4688-58-02 22:04:004.04[facility] HermannHEMATOLOGY 2015-02-02 22:04:0089.8[facility] FtetdvuPCKXCJKWBR8472-46-61 22:04:00 Test Item Value Reference Range Interpretation Comments MCH (test code = MCH) 28.0 pg 27.0-31.0 [facility] JtjiogwYYUUIYRVEJ7981-06-41 22:04:003.3[facility] HermannHEMATOLOGY 2015-02-02 22:04:000.6[facility] QroimtzBNUHADPDRM2413-84-02 22:04:000.4[facility] LyzitrtBJLLLGGQQS1864-93-60 22:04:000.0[facility] BfklnlfQLMGPLBGCB7953-77-30 22:04:0065.9[facility] AmgedtbWVBXYYXCRZ7034-26-30 22:04:003.3[facility] WUNGGKLVPY8966-34-82 22:04:007.0[facility] BednsisSROGSAXMHC1474-04-35 22:04:001.2 [facility] UydqbzbLQBZKAKUXX4882-83-40 22:04:000.2[facility] HermannHEMATOLOGY 2015-02-02 22:04:0023.2[facility] HermannCARDIAC XYWGGBB0629-75-40 03:14:83554 [facility] FfkaemlEQFRZZQYBD3521-05-40 03:14:001.01[facility] HermannHEMATOLOGY 2014-07-07 03:14:00 Test Item Value Reference Range Interpretation Comments PTT (test code = PTT) 27.2 s 22.9-35.8 [facility] CnambceQBMPZHZGDG4769-92-31 03:14:00 Test Item Value Reference Range Interpretation Comments PT (test code = PT) 13.3 s 12.0-14.7 [facility] HermannCARDIAC LLZXYYY7244-76-87 02:57:000.8[facility]annCARDIAC KOYOABN5256-29-19 02:57:29103Whmldlzr HermannCARDIAC RRZDXIK8808-77-00 02:57:00 1.0[facility]ann[facility]AC MLEFAQV8502-98-92 02:57:000.28[facility]annCHEM HAXUV2298-56-61 02:57:0034[facility]annCHEM KTZHE7148-10-31 02:57:75355 [facility]annCHE[facility] TSTHF7997-30-91 02:57:0030[facility]annCHEM PANEL 2014-07-07 02:57:0077[facility]annCHEM YHTRN3112-31-27 02:57:003.7[facility]annCHEM QRQPC2910-75-90 02:57:0018[facility]annCHEM WIVYE7751-54-93 02:57:0018[facility]annCHE[facility] SPTUS7542-10-72 02:57:008.5[facility]annCHEM OJOLV9496-63-28 02:57:008.0[facility]annCHEM PJJTR3046-27-56 02:57:0010.1 [facility]annCHE[facility] HHMYO5148-79-35 02:57:000.4[facility]annCHEM PANEL 2014-07-07 02:57:004.3[facility]annCHEM CYNKE5412-57-81 02:57:0021[facility]annCHEM ATUMZ3211-96-78 02:57:000.9[facility]annCHEM HJFNT4194-86-22 02:57:64900Esqrsexi HermannCHEM DAWQB9893-30-34 02:57:0044[facility]annCHEM XXHZG7817-30-23 02:57:21709Yyedlmoo HermannCHEM VJTNZ9860-23-34 02:57:002.1 [facility]annCHE[facility] PJBXB4587-08-48 02:57:004.1[facility]annHEMATOLOGY 2014-07-07 02:42:000.4[facility] VgloibfPBCJBPXZZW5611-20-29 02:42:000.2[facility] JadeqjjOGBRAXGUXN3658-08-39 02:42:000.0[facility] OqpjnhzLZUYXYBUOC4628-34-41 02:42:006.4[facility] GnxtotoOFHKRADWZW6088-17-46 02:42:002.6[facility] MWMBZPBVPC5050-20-66 02:42:000.3[facility] JeauwsgXRECSDURAS2317-00-13 02:42:004.5 [facility] JapnrnpJJBCHUYCUH4908-91-86 02:42:001.5[facility]annHEMATOLOGY 2014-07-07 02:42:0068.3[facility] XtcnihtSJLLPJTAIP0634-42-08 02:42:0022.4[facility] ZjjpqtrZMOWXWXCAZ7255-09-66 02:42:0033.7[facility] OvqjuohEXOWYTYXXY2387-08-87 02:42:0035.8[facility] HiofvxdEYXANNVTTN7981-87-61 02:42:0080.3[facility] [place] HRTDKJOZOP9782-13-88 02:42:00 Test Item Value Reference Range Interpretation Comments MCH (test code = MCH) 28.7 pg 27.0-31.0 [facility] OlzcmukWWYSTAJKYA5452-76-87 02:42:52240Nkzzitvy HermannHEMATOLOGY 2014-07-07 02:42:0010.1[facility] RjjhhqwMRFEOHIFMG7192-18-25 02:42:0018.6[facility] YcbueqvZMFVWXZZBV8287-12-80 02:42:004.19[facility] VodefgdWMSPYJBGPQ0086-17-67 02:42:0012.0[facility] ZavdyfeBJKKWWGGAV4324-13-02 02:42:006.5[facility]annCHEM UVPIZ8204-23-22 12:54:0034[facility]annCHEM ILBHF1836-63-20 12:54:0024 [facility]annCHEM OSWTI9578-68-54 12:54:69491Llecossy HermannCHEM PANEL 2014-04-02 12:54:004.2[facility]annCHEM EMPEM3704-51-25 12:54:001.24[facility]annCHEM IIGDJ1449-18-01 12:54:79875Ktfhdrdx HermannCHEM GLZFL9777-51-25 12:54:002.1[facility]annCHEM BNOVJ1245-78-31 12:54:0011.2[facility]annCHEM KUDED4581-71-48 12:54:0028[facility]annCHEM WRPAZ6621-05-66 12:54:84788 [facility]annCHE[facility] ZLNFD9583-81-43 12:54:0021.0[facility]annCHEM PANEL 2014-04-02 12:54:0033.0[facility]annBLOOD BANK WNMHKGE2860-68-86 17:25:00 Negative (03/30/14 11:25 AM)[facility] DEDLABK4546-46-70 17:25:00Product available (03/30/14 11:25 AM)[facility]annELECTROLYTES 2014-03-30 17:25:0010.7[facility] CaoxpjrMTDATANCJDTG5303-54-85 17:25:0034[facility] CbpesleHHTPQXTQLINX9420-86-56 17:25:71858Urogfpwu VffqwqbCZUFIJPPSMNR5425-98-35 17:25:002.1[facility] ZudiibcYNTXATUTNBLS3914-03-70 17:25:0034[facility] [place] VLYTLZJUBTFV5942-69-85 17:25:003.7[facility] CbikjbgFOJRHDKUKKGH7403-89-05 17:25:0030[facility] WhrlcbiVOOATRTTENCE2497-49-82 17:25:89378Lwkmefus [place] JILCXLQZVIKP0871-46-68 17:25:008.6[facility] KkfilxgWBWPXWSSHRWQ0584-00-19 17:25:0088[facility] WvsljvuVHVQKOAIZI3929-59-01 17:25:00 Test Item Value Reference Range Interpretation Comments PTT (test code = PTT) 27.7 s 22.9-35.8 [facility] KomislrQOCPYXCTDA4546-22-00 17:25:003.57[facility]annHEMATOLOGY 2014-03-30 17:25:004.9[facility] BoqyrmvNKKBPWIKYX2868-61-94 17:25:0030.9[facility] NhdsqhmNSULXYVLWE4866-61-79 17:25:0010.1[facility] EqxgkniAHNPDOJJEY0548-78-87 17:25:00 Test Item Value Reference Range Interpretation Comments MCH (test code = MCH) 28.2 pg 27.0-31.0 [facility] HuilbgxNOINREAPZA1362-14-37 17:25:0086.5[facility]annHEMATOLOGY 2014-03-30 17:25:0032.6[facility] GoxjiyaHFAROCUJAC7755-69-12 17:25:0018.3[facility] GatykiaOLHPIJSRGW5656-56-26 17:25:009.1[facility] VwqcxglMJXRAORKAT3131-29-94 17:25:65853Hntxaknm RottcudLCQLITYTAD5153-81-53 17:25:003.5[facility] GFMSOUNHMO0925-79-32 17:25:005.1[facility] SkrdjnoMAYBTYAQVT2136-00-65 17:25:001.2 [facility] YesgtmdTFAQEBZTEU2736-49-65 17:25:003.3[facility]annHEMATOLOGY 2014-03-30 17:25:000.2[facility] FtpdxliQJFPZZOSIN8622-50-47 17:25:0023.7[facility] MqfingxHYQYBVKPHX3107-71-92 17:25:0067.4[facility] CdsfnkmPGKQVIALWQ2686-91-99 17:25:000.3[facility] OhlscaxYCFHSEHQNB2376-99-77 17:25:000.3[facility] KOBREUOPGM3005-76-28 17:25:000.0[facility] VxogwotMNSORLQOSD9670-89-10 17:25:00 Normal (03/30/14 11:25 AM)[facility] HzxzlgzUZPZWBTJYX7937-46-07 17:25:00Normal (03/30/14 11:25 AM)[facility] PzeobbqBCCDGEGZSC1001-26-58 17:25:001.08[facility] MrpxwobUIWOJQZJZF9871-68-41 17:25:00 Test Item Value Reference Range Interpretation Comments PT (test code = PT) 14.1 s 12.0-14.7 [facility] XdgnehdFBPEEIYBRUWI0808-16-26 10:15:0010.4[facility] HermannELECTROLYTES 2014-03-05 10:15:0038[facility] OvugtmnWVVMLXMBTTPW5752-33-35 10:15:0031[facility] HcizayxNVLXLXJRAWRB4628-02-84 10:15:008.4[facility] ZkyufvkPVYMAUJIXJME8563-55-34 10:15:19509Jsifazfk CzxijxkRMALHNRLOKWY7040-44-20 10:15:003.4[facility] TZRPWNZQUZWJ6514-66-74 10:15:94531Nvlrjguv IzlvimpWREVMKFNKJGD4026-22-48 10:15:0013[facility] WxiedfiQJOMOCDSJLHV4565-21-38 10:15:001.9[facility] [place] DTCUBSTXPUPP6058-91-79 10:15:0080[facility] EyqiikjDTNCFQMSIL5026-37-70 10:15:00 6.9[facility] FmwxpkzLPJKNGEJKJ1280-73-20 10:15:000.8[facility]annHEMATOLOGY 2014-03-05 10:15:003.8[facility] TshmgiuKZCUMMAOUZ0159-84-21 10:15:000.4[facility] KufeabgTWBRAJAHAA2328-87-75 10:15:000.2[facility] BqnphrxWONUEQUYXS9502-75-85 10:15:0023.4[facility] HjttkhfGJGFTYQGRF4687-17-18 10:15:0065.1[facility] [place] AMXHJBQUCE3967-05-21 10:15:001.3[facility] LvynausJFTMNICCKF2736-95-87 10:15:003.7 [facility] PsjpubcJZVSQTKTNG2231-31-15 10:15:0032.3[facility]annHEMATOLOGY 2014-03-05 10:15:0016.7[facility] YndrmrhFIVFYIEBLN4415-71-81 10:15:0093[facility] LcsjtnkZEUWIDOTPZ4426-20-58 10:15:009.2[facility] PniqtqfYKRKEDACRK1413-36-82 10:15:00 Test Item Value Reference Range Interpretation Comments MCH (test code = MCH) 29.2 pg 27.0-31.0 [facility] XqzrzlbSEDVXICTRM1351-27-85 10:15:005.7[facility]annHEMATOLOGY 2014-03-05 10:15:0090.6[facility] YbopefqWEZNLSXSXR4835-96-01 10:15:0034.5[facility] WqezfopUVAZIIJEWW2296-90-49 10:15:003.81[facility] AbxozurZWPRWEUCMK6307-77-49 10:15:0011.1[facility] CmnkjouVWATZFUFCW0789-34-42 19:39:00<0.2[facility] Noel KOABRUAMBK8138-34-85 19:39:00<0.2[facility] IrggmqeZRTTOXCZCA6644-92-42 19:39:00Negative (03/04/14 2:39 PM)[facility] SuehswiDEVQRQEDLG6389-67-33 19:39:00 <0.2[facility] UymppflDAFYJJYAXA4317-20-67 19:39:00<0.2[facility] [place] RHXKNTFOLY3613-46-83 19:39:001:40 *ABN*(03/04/14 2:39 PM)[facility] MIHDBFQFLC4357-15-37 19:39:00<10[facility] HawlwbxZVSXTJODEO6572-15-65 19:39:00 Positive *ABN*(03/04/14 2:39 PM)[facility]annSPECIAL DNNUGYFZY5681-39-40 19:39:0019[facility] HermannTHYROID RSVQK3399-74-23 19:39:004.580[facility] CHEM PPPSC0284-41-97 10:10:0044[facility] HermannCHEM VRXSO7409-30-39 10:10:008.3 [facility]annCHEM VZHIV9730-69-41 10:10:18345Lkatcdkd HermannCHEM PANEL 2014-03-04 10:10:003.5[facility] HermannCHEM MUEWQ2415-52-09 10:10:76573Xzchsftl HermannCHEM AZIQC7429-95-68 10:10:0029[facility]annCHEM PRUQW5976-17-54 10:10:001.7[facility] HermannCHEM HCIRG5699-85-11 10:10:0012[facility]annCHEM TLBPE9782-31-46 10:10:0084[facility]annCHEM PSPUK4199-21-17 10:10:0010.5 [facility] QwqeybdWZHBYYPKZQ5122-40-48 10:10:001.4[facility] HermannHEMATOLOGY 2014-03-04 10:10:004.3[facility] DmeahirFFVBJAGJQD0989-33-67 10:10:000.7[facility] VbgqozqFDVUUBZFBZ4397-74-62 10:10:004.0[facility] VinjaneCRXSCEPFDH1978-32-48 10:10:000.3[facility] LqumcrzWHEJARYCIU8314-77-44 10:10:000.4[facility] RSJXVJITAP5606-16-97 10:10:005.7[facility] AjuczzvLXGEXMZLUV9421-63-13 10:10:00 22.2[facility] FkgkxhsTTUFZPHYAT8944-50-86 10:10:0067.4[facility] HermannHEMATOLOGY 2014-03-04 10:10:0010.4[facility] UhvvkjcLUYKJNAEOS3803-43-70 10:10:003.50[facility] XddepmbTUNNOYZJFM2200-13-16 10:10:006.3[facility] XxzhynuQACQSMVTLG1193-43-42 10:10:0032.9[facility] TsejlrsDWMGXEWUGF2109-32-03 10:10:0083[facility] ALHFHDQUNH3541-35-20 10:10:0016.4[facility] TyfunlpZWEZWKFSDC7197-41-07 10:10:00 8.8[facility] BjkqovrDSOLFZRABP4928-90-64 10:10:00 Test Item Value Reference Range Interpretation Comments MCH (test code = MCH) 29.5 pg 27.0-31.0 [facility] AaoolduWURVDUCNDV0837-68-79 10:10:0089.7[facility] HermannHEMATOLOGY 2014-03-04 10:10:0031.4[facility] HermannCHEM TZFCG7429-67-19 11:05:0044[facility]annCHEM SHTXD3582-49-08 11:05:0030[facility]annCHEM NBUHZ8898-98-89 11:05:008.5[facility]annCHEM EZYWO3365-08-78 11:05:001.7[facility]annCHEM SISSR4280-53-02 11:05:0013[facility]annCHEM VMPLP0648-24-52 11:05:0090 [facility]annCHEM LMUMN1553-88-17 11:05:66149Tbzfaxpi HermannCHEM PANEL 2014-03-03 11:05:003.6[facility] HermannCHEM FBGBZ2336-63-99 11:05:74099Lghijlnl HermannCHEM WKBRC0609-20-18 11:05:0010.6[facility] NmfzoiqIMEZJUOOYC1897-17-99 11:05:009.3[facility] JleimieTFIAVSKKPM2324-87-64 11:05:003.54[facility] WXATWCRUMF3983-47-09 11:05:006.2[facility] YfvgyseIYSCKBYPTU3722-71-37 11:05:00 10.4[facility] PqkdepeHPNXGNMWJY0781-32-43 11:05:0032.0[facility] HermannHEMATOLOGY 2014-03-03 11:05:0090.5[facility] ProzlozWRGMOWHLSV8361-68-93 11:05:00 Test Item Value Reference Range Interpretation Comments MCH (test code = MCH) 29.4 pg 27.0-31.0 [facility] XlbvvyzWVXKBJFOST1461-02-35 11:05:0017.2[facility] HermannHEMATOLOGY 2014-03-03 11:05:0032.5[facility] AlgfqucYGRGNYHWAU3176-27-49 11:05:13525Uvgthibq UcedlkjGKOFWQSAEG3295-75-57 11:05:000.0[facility] FuutzioIBCGSYBZCN2393-12-90 11:05:000.3[facility] IkomieeRFGIZZXWKG3515-06-56 11:05:001.3[facility] ZRIJNHNXNC9778-37-94 11:05:004.2[facility] MktcfojCMXPRTTFBP6843-46-75 11:05:000.3 [facility] UoqrwnhYVWTETQRYS2572-42-11 11:05:000.3[facility] HermannHEMATOLOGY 2014-03-03 11:05:005.4[facility] RovufpmDZQLBHKELU7195-28-03 11:05:005.2[facility] ZwmctibGDKHOZGRHC4175-24-13 11:05:0020.6[facility] PqetokqZNBUYFWLNG4027-38-23 11:05:0068.5[facility] FplclgtJLZUWYNZDL1065-19-23 12:19:000.0[facility] ANEMIA KVVIB4317-27-38 10:35:03865Zirmlyvv HermannANEMIA AVSNB9569-58-22 10:35:0044[facility] HermannANEMIA CEAWM3009-42-01 10:35:60686[facility]iyqmjbw [place] ANEMIA QXWNC0992-16-28 10:35:0017[facility] HermannANEMIA XPFZT9577-15-59 10:35:00 89[facility] HermannCARDIAC EROCJOY3649-45-62 10:35:80330Qyexhwum HermannCHEM DVAQQ6837-76-65 10:35:002.0[facility] HermannCHEM SCTBD7739-15-42 10:10:001.7 [facility] LkecxdwWJCXIELDYL1686-86-35 10:10:000.0[facility] HermannCHEM PANEL 2014-02-27 09:30:001.4[facility] RznoinoBMNMCA8112-71-26 09:30:001.89[facility] UmahjxsKZBYHV3085-67-76 09:30:0023[facility] SmvpnypMJFCDA9792-07-54 09:30:0037 [facility] DcmutngJDUKDQ4502-23-33 09:30:0070[facility] PniptsoRXJFDE1435-11-41 09:30:0050[facility] YlupkxxCIOQSE5684-08-72 09:30:0010[facility] HermannVIRAL - CWIEUWXE1364-84-67 23:00:46Negative 12(02/26/14 6:00 PM)[facility] HermannVIRAL - KLAUUFTQ6773-17-76 23:00:46Negative (02/26/14 6:00 PM)[facility] HermannBACTERIAL - XQDMEZIN9264-63-22 22:25:00Negative (02/26/14 5:25 PM)[facility]annCARDIAC FLQANPN6612-03-21 18:30:000.46[facility] HermannCARDIAC JBLNYEH0281-33-97 18:30:00 74[facility]annCARDIAC FSGUPLN3064-22-88 08:15:000.37[facility] HermannCARDIAC WRGHMXD3659-65-93 08:15:21764Psqeszid HermannCARDIAC LPPSOOW5556-51-73 08:15:00 1.6[facility] HermannCARDIAC DIRPKUA9292-96-01 08:15:001.6[facility] HermannCHEM PBKHE5248-39-67 08:15:000.9[facility] HermannCHEM SXTHY1809-20-53 08:15:009 [facility]annCHEM KKZGD4670-89-45 08:15:003.7[facility] HermannCHEM PANEL 2014-02-26 08:15:0013[facility] HermannCHEM NQHRI6430-88-61 08:15:0020[facility] HermannCHEM QMWPK9210-97-68 08:15:0070[facility] HermannCHEM UUWTY3416-37-68 08:15:000.8[facility] HermannCHEM SBSKL2657-62-02 08:15:006.9[facility] HermannCHEM SVIOV4407-43-40 08:15:003.2[facility] HermannCARDIAC MLGVBJT9259-78-50 02:31:23123 [facility] SLPNU6979-04-42 02:10:00None Seen (02/25/14 9:10 PM) [facility] MGWMP0864-20-16 02:10:00None Seen (02/25/14 9:10 PM) [facility] YXEZQ5536-75-63 02:10:00Yellow *NA*(02/25/14 9:10 PM) [facility] GSWLW3610-82-75 02:10:00Negative (02/25/14 9:10 PM) [facility] TFXNO5870-57-61 02:10:00Negative (02/25/14 9:10 PM) [facility] JTWRG9483-11-85 02:10:00Negative (02/25/14 9:10 PM) [facility] AMQTU5635-47-00 02:10:00Negative *NA*(02/25/14 9:10 PM)[facility] PVKLX3773-72-08 02:10:00Negative *NA*(02/25/14 9:10 PM)[facility] EHFBF5156-37-52 02:10:00Small *ABN*(02/25/14 9:10 PM)[facility] UMSUN2573-37-65 02:10:000.2[facility] JEQAZ5242-35-55 02:10:00Clear (02/25/14 9:10 PM)[facility] PTNGR1601-13-36 02:10:00 Test Item Value Reference Range Interpretation Comments UA Spec Grav (test code = UA Spec 1.015 1 Grav) [facility] CFSAL2619-62-26 02:10:00 Test Item Value Reference Range Interpretation Comments UA pH (test code = UA pH) 5.5 1 5.0-8.0 [facility] NQUEO6844-63-34 02:10:00Negative (02/25/14 9:10 PM) [facility]annCARDIAC RIYUPVV4576-46-55 00:50:001.9[facility]annCARDIAC PCDOTTS8403-15-61 00:50:000.38[facility]annCARDIAC QOVLSNV3030-71-12 00:50:00 100[facility]annCARDIAC AWAOEHR1398-53-49 00:50:001.9[facility] HermannCHEM LCEZS4332-61-55 00:50:007.4[facility]annCHEM QDUQV9697-86-98 00:50:000.6 [facility]annCHEM HMSPS3079-08-91 00:50:0077[facility] HermannCHEM PANEL 2014-02-26 00:50:0013[facility] HermannCHEM RQSKB2348-39-23 00:50:0015[facility]annCHEM PCFAT7764-55-19 00:50:003.2[facility]annCHEM HGBFS1716-92-87 00:50:004.2[facility]annCHEM VDIGR4113-50-98 00:50:000.8[facility]annCHEM NUMIR2811-57-91 00:50:009[facility] OqssvvjHJZDIQCBLU9120-97-21 00:50:000.81 [facility] NkrfsvoXBYVTGTZSU2333-22-50 00:50:00 Test Item Value Reference Range Interpretation Comments PTT (test code = PTT) 42.2 s 22.9-35.8 [facility] EmlvsorFJQRXGHNAM3243-31-62 00:50:001.36[facility] HermannHEMATOLOGY 2014-02-26 00:50:00 Test Item Value Reference Range Interpretation Comments PT (test code = PT) 16.9 s 12.0-14.7 [facility]annCHEM ARDJI1526-20-43 10:30:0038[facility] HermannCHEM PANEL 2014-01-28 10:30:008.6[facility] HermannCHEM THAUB8644-73-80 10:30:0013.1[facility]annCHEM NHHER1558-64-56 10:30:0028[facility] HermannCHEM DGISO6449-53-52 10:30:0024[facility]annCHEM QQNEI2895-29-86 10:30:0099[facility]annCHEM LHIZC6988-20-65 10:30:30249Zrvofdba HermannCHEM QVDPZ2252-81-79 10:30:004.1 [facility]annCHEM MJWZC5131-21-40 10:30:70155Sutovqgu HermannCHEM PANEL 2014-01-28 10:30:001.7[facility] HermannCHEM ELWIV5349-76-60 10:30:002.1[facility]annCHEM ODPQE9580-09-56 10:30:002.6[facility] CtxeykeCLMOTRIQYX2297-71-64 10:30:005.0[facility] EvszzusLRPVCQZBUO8838-01-88 10:30:000.4[facility] [place] JXSODIUZNB2019-27-89 10:30:000.1[facility] PwjoemxYTYCVZBIHP1003-42-75 10:30:000.5 [facility] CpjqthnJFGPAYZSGL7390-24-51 10:30:001.8[facility] HermannHEMATOLOGY 2014-01-28 10:30:0024.7[facility] KpvpmoyYBAUWTUYJA8524-05-07 10:30:0066.4[facility] GynwbjbTVKNHYMWFH5678-17-26 10:30:001.7[facility] PulnjljCJKGUYUJEE9079-50-80 10:30:006.8[facility] BwtmfciPMZWLDLLPX9342-96-73 10:30:0010.3[facility] NOMQWMGWBF3194-81-34 10:30:0079[facility] PoxyojcTESUMLFRDF8924-03-07 10:30:0011.3 [facility] NrnrljvGHAKQCHJNP6141-29-60 10:30:007.5[facility] HermannHEMATOLOGY 2014-01-28 10:30:003.84[facility] QhvovnxWAEIQSTMGO5798-88-31 10:30:0014.1[facility] MuhpvhmBVACZKDPEO7001-61-91 10:30:0034.2[facility] BqfcnzhLCBSSBJECV0978-12-89 10:30:0089.0[facility] NrnikwbAODRLIAHCD4274-89-47 10:30:00 Test Item Value Reference Range Interpretation Comments MCH (test code = MCH) 29.3 pg 27.0-31.0 [facility] HbjrvayEIGWJGSNQI9836-47-18 10:30:0032.9[facility] HermannCHEM PANEL 2014-01-27 19:10:002.0[facility] HermannCHEM OSFSU1652-97-04 19:10:0035[facility] HermannCHEM CKJXF9596-95-50 19:10:008.3[facility] HermannCHEM CTJFQ9788-45-55 19:10:0029[facility]annCHEM QZQHO2338-27-14 19:10:008.3[facility] HermannCHEM HUZTV2831-71-37 19:10:94858Dilyqcca HermannCHEM EUOKV5598-74-16 19:10:004.3 [facility]annCHEM ASZRK1745-02-72 19:10:03485Gybmmrcs HermannCHEM PANEL 2014-01-27 19:10:0026[facility] HermannCHEM ZNIVG2276-61-98 19:10:001.8[facility] HermannCHEM XIRQV8604-49-22 19:10:04259Kocldeum HermannCHEM XLGGK4427-32-61 10:00:001.5[facility] CctynlmJTSSHQYFZZBE3458-91-95 10:00:0011.4[facility] JZOAOFIWWVRC2370-39-89 10:00:0035[facility] DxaoautTIHLPBUKXFJT2794-72-47 10:00:00 104[facility] VebmrehWXWAGXWQNQYY1726-95-85 10:00:004.4[facility] WNOVAUUIGPHY7723-06-67 10:00:41123Oaqvlmcz BdguhamNDEUITFLHAJX4056-39-25 10:00:001.8[facility] XrzqgisJNODOAZIRIBN2822-67-20 10:00:008.6[facility] [place] HFXIQZOCIKNU0890-90-60 10:00:0028[facility] AgdrqboJOXVEXFPQJWP4613-92-35 10:00:00 26[facility] KklvsbgBEIEMDDSZWMH1598-70-22 10:00:75481Zmikybpj HermannHEMATOLOGY 2014-01-27 10:00:00 Test Item Value Reference Range Interpretation Comments MCH (test code = MCH) 28.8 pg 27.0-31.0 [facility] PiczjnuVLUJTUQXBQ3507-32-40 10:00:0032.0[facility] HermannHEMATOLOGY 2014-01-27 10:00:0014.2[facility] GtjngeoTAYMPVLSUU5773-74-40 10:00:009.8[facility] LkmwgajYDZAYLMHDT1961-70-30 10:00:0071[facility] YdwtndxQPDJQRNOEL2605-85-80 10:00:004.06[facility] GdetaseKELVURVBUX6078-33-71 10:00:006.2[facility] [place] JBBSTGQVNB0138-07-67 10:00:0036.5[facility] JoapntpPHWWLBXLDY2152-63-51 10:00:00 90.0[facility] EnprzsrBIOSFHWNOC3910-43-19 10:00:0011.7[facility] HermannHEMATOLOGY 2014-01-27 10:00:001.6[facility] TigtrboLUXYLTHBMJ4170-86-91 10:00:004.2[facility] RxzvwnjCEZZPKAVRN3702-34-59 10:00:000.3[facility] QhxukxlVPOIIFAIAL2154-46-42 10:00:000.1[facility] WahyhgzNQZFQVHSUN8892-13-04 10:00:000.2[facility] QLNGAHDZCM0519-32-94 10:00:000.0[facility] GstetxoTMAUSRPFCR9685-54-33 10:00:00 26.0[facility] ZvkubloXFHBQREFCT5424-09-81 10:00:0068.2[facility] HermannHEMATOLOGY 2014-01-27 10:00:001.5[facility] BwaohzfZFYAAPYABF0735-04-19 10:00:004.0[facility] BvucqgySJZQNB9309-44-52 10:00:003.36[facility] KjwneiySUNURC8980-17-02 10:00:0023 [facility] IjpsvlfSZUPDH1944-19-09 10:00:0069[facility] HdnmbkzYOUSUL1892-56-26 10:00:0039[facility] GhcbvmkGAMRVH1999-67-45 10:00:04007Hszjmmjn HermannLIPIDS 2014-01-27 10:00:82393Huaointy TmvvaikDQKJXFRNCS2236-86-27 10:00:001.2[facility]UR[facility] AND YVIVJ0609-15-77 14:15:00<=1.0[facility] STOOL 2014-01-26 14:15:00<1[facility] WWKUY7270-65-05 14:15:001.005 [facility] TFUKI2407-04-24 14:15:00Clear (01/26/14 9:15 AM) [facility] BVNXK2381-18-42 14:15:00Colorless *NA*(01/26/14 9:15 AM)[facility] PKTIV8676-72-95 14:15:007.0[facility] ZYVEL6483-59-53 14:15:00Negative (01/26/14 9:15 AM)[facility] GSCLX7537-26-88 14:15:00Negative (01/26/14 9:15 AM)[facility] JXJBN7190-86-34 14:15:00Negative *NA*(01/26/14 9:15 AM)[facility] PLUIR8504-59-55 14:15:00Negative (01/26/14 9:15 AM)[facility] HermannANEMIA STUDY 2014-01-26 14:00:0010.9[facility] HermannANEMIA TKJMO6630-21-43 14:00:18716 [facility]annCARDIAC TCPXWZC4347-66-00 14:00:72232Lrhngsys HermannCARDIAC RSYKWAY7658-99-71 14:00:000.28[facility]annCARDIAC QRDKDBS7403-95-56 14:00:00 88[facility]annCARDIAC LOGRVCM3902-91-76 14:00:003.0[facility]annCARDIAC YKZUVNB8298-14-81 14:00:002.6[facility] HermannCHEM EOZMC7577-65-61 14:00:002.6 [facility]annCHEM FSGSW8359-85-97 14:00:000.5[facility] HermannCHEM PANEL 2014-01-26 14:00:000.9[facility] HermannCHEM RRENO1710-85-97 14:00:004.1[facility] HermannCHEM EVRQV0604-01-16 14:00:000.7[facility] HermannCHEM QDYTK9354-12-47 14:00:000.2[facility] HermannCHEM OCLEI4039-19-40 14:00:0015[facility] HermannCHEM TKBOI6963-79-75 14:00:0078[facility] HermannCHEM ECMYI0205-04-21 14:00:007.6 [facility]annCHEM KHVAL2487-61-74 14:00:003.5[facility] HermannCHEM PANEL 2014-01-26 14:00:0017[facility] BnbwxnrBDDWZXVDHD3089-11-24 14:00:0084[facility] SejaogdSCDFXBVUMA2167-63-55 14:00:009.8[facility] ZoplcidTVAHJNOIMD8772-63-91 14:00:006.6[facility] UepwidiZRPJRNUYEY4677-18-34 14:00:00 Test Item Value Reference Range Interpretation Comments MCH (test code = MCH) 29.2 pg 27.0-31.0 [facility] OqimjeiNVZILXZDGB8848-33-08 14:00:0032.7[facility] HermannHEMATOLOGY 2014-01-26 14:00:0014.3[facility] UfkwaisEAKXNIOGFD4454-87-42 14:00:0089.2[facility] VxhtzmnUYMWAJTOPU7743-22-80 14:00:0013.2[facility] XprbstsEEZJOIZWTI8422-65-24 14:00:0040.4[facility] EdjulhkVJOILYKMMU9765-57-38 14:00:004.53[facility] [place] IWXIRHHRJK0740-68-81 14:00:001.23[facility] DksqokmUBYBULWXKE1147-53-74 14:00:00 Test Item Value Reference Range Interpretation Comments PT (test code = PT) 15.6 s 12.0-14.7 [facility] XxibqjiHBVLRIAKKZ0753-76-53 14:00:001.6[facility] HermannHEMATOLOGY 2014-01-26 14:00:004.6[facility] YjfuthjUCBJHCPXRI9141-20-76 14:00:004.4[facility] NgxeksnFVCRXDCWQY7370-59-98 14:00:000.7[facility] EtcncqdSSAFDGBMRD0102-01-61 14:00:000.1[facility] SqxrayqDWSXLSLDME6806-64-11 14:00:001.8[facility] LVYDNHUMJB7187-88-61 14:00:000.3[facility] CkeeulzRHAGZXUARI1107-63-54 14:00:00 27.2[facility] FqmgxlsMNTGJUTYUE5171-71-40 14:00:0065.9[facility] HermannTHYROID XQHGR5224-40-86 14:00:002.320[facility] WsolafbPBBPBAHRX1552-38-62 10:30:99267 [facility] FtircqgMIVLQSFRR0098-34-24 10:30:0084[facility] HermannCHEMISTRY 2012-02-27 10:30:003.8[facility] SbzxwkiNBSRJDZBT2306-37-51 10:30:65358Nglhieez XakfhplEUTTIFTAA6427-39-72 10:30:25251Hfpugedr UvvoovgCIOUAOAMI9308-09-78 10:30:001.0[facility] JgnhtbaXUWMTZUYM5104-14-46 10:30:0017[facility] [place] [place] XDFNHJDYD2361-49-07 10:30:0084[facility] OahihziOJZYWQLDL0108-42-30 10:30:007.9 [facility] JypplcySKGBCBGMC7630-76-98 10:30:0028[facility] HermannCHEMISTRY 2012-02-27 10:30:0015.8[facility] MquimzoMVLANPOUDL4186-91-29 10:30:008.3[facility] GndabusJACUNTYWHE9210-83-60 10:30:003.1[facility] LvtayrsCTQMRANDDE0784-27-57 10:30:0044.7[facility] HikwllrCSNVPJTYHB8776-99-50 10:30:0043.6[facility] [place] PPTTAAPBHK0894-06-47 10:30:00Normal (02/27/2012 05:30:00)[facility] KKJDVOEAMZ7448-41-40 10:30:000.0[facility] XennmcpZDVFSOFRTJ3397-37-22 10:30:000.1 [facility] ZerksxcAVJBGALXUM9793-36-96 10:30:002.0[facility] HermannHEMATOLOGY 2012-02-27 10:30:000.4[facility] LxakolwKOATSEPBWG9912-75-40 10:30:000.3[facility] DrlssdrVUHOKCGJRR6450-18-87 10:30:002.0[facility] AkumvheNFWHRRFOMC9902-55-77 10:30:00Slight *ABN*(02/27/2012 05:30:00)[facility] WgmspwcLYNOIQXKQE3021-93-51 10:30:009.9[facility] MubtauyCBKUTMGKDM3807-30-50 10:30:00 Test Item Value Reference Range Interpretation Comments MCH (test code = MCH) 31.3 pg 27.0-31.0 H [facility] TdxhkemMATRSRUJGJ8472-59-11 10:30:0033.7[facility] HermannHEMATOLOGY 2012-02-27 10:30:0014.8[facility] MncjipyCXIZRVDTJU2140-61-20 10:30:0034[facility] LssjwjlAJEBOKNVRQ8961-18-72 10:30:0092.9[facility] XbpwtbnLOOUTWVKWF4966-96-46 10:30:004.6[facility] LhrgsosSZMVTISUOR1862-97-68 10:30:003.40[facility] [place] OBKKFXMHSA3816-82-23 10:30:0010.6[facility] IcpccqcRDIVHYXWSI2842-65-80 10:30:00 31.6[facility] IgbsqfsRFNDYIVBX4722-61-55 21:40:24427Xaaitogw HermannCHEMISTRY 2012-02-26 21:40:003.9[facility] ZiqogxpZCDJUPWRZ5818-03-39 21:40:0011.9[facility] MpodvovJVPFITBGE8158-44-43 21:40:007.7[facility] OzassfxWZEVYMZYG7115-51-42 21:40:87940Ioskcmgd BnlhxriNVZFASJVZ7737-49-99 21:40:0068[facility] [place] FJEXOFMUF1555-35-31 21:40:0026[facility] UswvivlFELKMHFGM0371-44-83 21:40:001.2 [facility] QyfyryqUIJXAXYKA7750-85-71 21:40:57592Uupvikrd HermannCHEMISTRY 2012-02-26 21:40:0099[facility] YblahulLQXQSHVDH5012-11-22 21:40:0031[facility] AbodzhmEBJIZHSNH3305-93-88 13:56:66672Ggdocope VolicxsADKUBPXAX6074-83-28 13:56:000.11[facility] LgegvysGCTJBRJZV8547-42-31 13:56:001.5[facility] HAERCNZHD2782-00-79 13:56:001.0[facility] GemfojgLCEFZEANQ6149-64-31 10:00:001.3 [facility] VhdbrgsTHRVKJCPF8072-00-86 10:00:003.2[facility] HermannCHEMISTRY 2012-02-26 10:00:000.8[facility] TmkdtosPKZULLOWK4946-53-95 10:00:0012.5[facility] SuwrbzlZMIOOQVED4425-43-83 10:00:0022[facility] GmdqweiRZECCOENF2829-46-06 10:00:005.8[facility] BqtfdhlGZURZDQYY4306-51-42 10:00:0020[facility] FNIWOUZRU7146-64-85 10:00:007.8[facility] OabzaclUPFTFNJKL0425-90-42 10:00:000.6 [facility] BsmpsdmHQWZAUCOV3768-24-46 10:00:0030[facility]annCHEMISTRY 2012-02-26 10:00:0048[facility] CwbbgevXXGAQIFKN5323-26-72 10:00:0036[facility] KaufsqvKYZIIKKKZ4955-22-01 10:00:0091[facility] WwoevasARQRYDYDZ0152-86-42 10:00:002.6[facility] CksiwrlYHWXEGZOM9516-99-73 10:00:0033[facility] [place] SYMEAGSJA5754-84-53 10:00:0015[facility] PgsqdkzVFDOOVNKM1359-38-00 10:00:003.5 [facility] FbbktarCGAYHYFSS5345-90-89 10:00:0099[facility]annCHEMISTRY 2012-02-26 10:00:001.6[facility] BkwzrxvOUANAOKHZ5046-90-36 10:00:17354Ewymffua XqrfjedQVRRIWTRK5016-68-34 10:00:005.6[facility] OuslvjcHVFOTZGKX3768-54-60 10:00:0041[facility] CkkfkzfHKSHRRQKK0776-59-94 10:00:0039[facility] [place] XUZTPYTVS0978-27-86 10:00:0092[facility] BboqsevGZXPKHPHI6249-90-85 10:00:0098 [facility] UledcluUFUPSXPRG4591-38-90 10:00:002.51[facility]annCHEMISTRY 2012-02-26 10:00:31392Yifiptxl PxumbtyUYMRYSHAW1161-47-44 10:00:000.10[facility] RatnlghYIRTAGFRS2677-38-98 10:00:001.7[facility] SkqmcmcTTEFRNORW1798-85-53 06:15:000.4[facility] WajnhetJADTXEIZO1796-42-47 06:15:86868Itilrxry [facility] UJCCULZYX7388-11-78 06:15:0013[facility] PazurkmLTUAZHBZE7501-12-04 06:15:0042 [facility] TwafqkmIWCMBOGRU3104-38-55 06:15:001.95[facility]annCHEMISTRY 2012-02-26 06:15:0082[facility] BxjzjcpJPAUEGYTX4049-75-83 06:15:04496Yqygtijf MjnvqxrKKIACPNCX2907-61-22 06:15:000.09[facility] EyveryhAZYUGZCPF9186-47-70 06:15:001.1[facility] HermannBEDSIDE GLUCOSE NFHWHEV2419-98-30 16:28:06322Jjwwnrsk HermannBEDSIDE GLUCOSE MAMNXQH2273-80-84 11:12:33993Rkwgmloe HermannBEDSIDE GLUCOSE WGATARA2087-51-16 02:31:49062Eamednmv GlkvjzaYQDNTDDWC1341-27-85 07:08:0014.5[facility] HjvibhmOHAFSIDTI5811-52-52 07:08:32483Mqtiqwma [place] LMPHGTYTG9638-08-44 07:08:001.3[facility] GvlliswQTNAWOITS3692-96-62 07:08:0025 [facility] WofhaacYNUMHMVCX0701-46-35 07:08:98346Dcemfakh HermannCHEMISTRY 2011-12-07 07:08:008.7[facility] HrjyusoYVGXAEXYP8258-61-53 07:08:0031[facility] BaeizzpYWPKRFDJZ5664-80-34 07:08:004.5[facility] AmzguflTCIONBOZA2666-86-80 07:08:44885Rlsfrfhz ZmtdeqkCFJKYFYMUI7490-63-31 07:08:0013.2[facility] OGHXAQSXSF5035-53-72 07:08:0031.9[facility] NnqimkfCXJJIJKCRI6438-92-92 07:08:00 3.40[facility] MhtezmbSXMZTMPYLN9625-10-35 07:08:0010.6[facility] HermannHEMATOLOGY 2011-12-07 07:08:0093.7[facility] RaqjhgnBNPHMYWZVK0537-60-19 07:08:00 Test Item Value Reference Range Interpretation Comments MCH (test code = MCH) 31.1 pg 27.0-31.0 H [facility] HihjuzvGWASZHTQIO1827-18-28 07:08:36636Ljfeuqsl HermannHEMATOLOGY 2011-12-07 07:08:0033.2[facility] WooampoJYCVVRMATI6223-10-30 07:08:0017.0[facility] NrvuekyJSPEBBBHVQ6558-55-00 07:08:009.4[facility] SgilczmJVAHKVHQIE1743-67-49 07:08:000.8[facility] WelxcyiCHGZRZXAEV6795-80-91 07:08:000.0[facility] OPXRUYZERD5172-08-16 07:08:000.8[facility] PwviiacCSUCWKTWIO9285-09-72 07:08:000.0 [facility] CvoflieSIKTSSKDZY6432-54-79 07:08:0088.5[facility] HermannHEMATOLOGY 2011-12-07 07:08:005.7[facility] KuqxkmjISLBXLRTSI7533-89-57 07:08:005.8[facility] SvsflvlKJACCINKTR3828-09-07 07:08:000.0[facility] LtcuidqUKNXAQVVMP2269-08-18 07:08:000.0[facility] OtxpcorUONASXWSFH3837-89-28 07:08:0011.7[facility] NUGDOHVGS6350-57-08 05:10:0014.0[facility] OulknndUVVQCGRUF1349-95-37 05:10:004.0 [facility] WcwlroyQMAXYMZRG9843-39-54 05:10:27518Ftqufegd HermannCHEMISTRY 2011-12-06 05:10:0028[facility] VkzljpuAIFHWBERF9732-69-06 05:10:82194Zeyjehif OhmfvzpQEDXXRNPL1284-56-67 05:10:008.1[facility] ZhzwbhfBWEJXAFVY7974-50-49 05:10:30072Nwfotnmh OaepkogNSLCAIGWN1044-56-42 05:10:0028[facility] PLRGUBHAE4476-65-52 05:10:001.3[facility] GqaqxtlBQEAGGNSP7232-27-61 05:10:002.1 [facility] YpvseakAJTITUZUI0344-88-63 05:10:003.4[facility] HermannCHEMISTRY 2011-12-06 05:10:004.68[facility] IxlzgcyFMDDAIPZA1408-48-30 05:10:004.76[facility] IshapitSQSIVWRDK9550-00-49 05:10:001.17[facility] GsxsackCPJVDDOVG3236-26-59 05:10:001.19[facility] HrqdkquNDHLDCYXCR8911-89-38 05:10:009.4[facility] [place] JBPIKRNKGY1632-24-90 05:10:0030.9[facility] YrapvubKSHTOVXVKO4452-21-98 05:10:00 10.4[facility] HthwkstAYVTSWFVZI6422-62-82 05:10:0093.8[facility] HermannHEMATOLOGY 2011-12-06 05:10:00 Test Item Value Reference Range Interpretation Comments MCH (test code = MCH) 31.5 pg 27.0-31.0 H [facility] IwasegcOZVNZQQPRX0170-09-04 05:10:91018Ctmvxlbp HermannHEMATOLOGY 2011-12-06 05:10:0033.5[facility] XctuqkhUQOPQZDYTI9002-63-77 05:10:0016.1[facility] UivrcjhOYLCIODZOF9126-37-99 05:10:0011.9[facility] LqhprsdRQVTWFJFAC4622-68-79 05:10:003.30[facility] BbcfmbwOXMKWERLHE4684-96-10 05:10:005.5[facility] [place] RSAJWYJGJE3289-12-46 05:10:005.8[facility] FnhqpuyHMBVYKCNEL2518-06-94 05:10:00 88.6[facility] XawakkcVYTKFNPMTZ7745-91-52 05:10:000.0[facility] HermannHEMATOLOGY 2011-12-06 05:10:000.0[facility] TzirwwjZOZROPHSMR2343-42-49 05:10:000.7[facility] RokczrkSGZKGTDAYS0103-01-79 05:10:000.1[facility] OxlynjtQEWAFBTESY1517-03-93 05:10:0010.5[facility] EfvtwpoIKXYRBRAGX6654-90-21 05:10:000.0[facility] SJOWLNOEUI3083-65-89 05:10:000.7[facility] BxkpskkJDUPRCOWPR5321-47-92 02:02:42923 [facility] RdjbydjDDMIUHQVHU1317-44-02 14:11:00 Test Item Value Reference Range Interpretation Comments PTT (test code = PTT) 24.0 s 22.9-35.8 N [facility] RpumgidKNVTXGXTRZ4061-10-25 14:11:00 Test Item Value Reference Range Interpretation Comments PT (test code = PT) 15.0 s 12.0-14.7 H [facility] YubwfvuDJRUUSBZYH2254-18-61 14:11:001.18[facility] HermannBACTERIAL - TXLFOCVD9182-25-76 06:58:00Negative 1(12/05/2011 01:58:00)[facility] HEHJZGWZR3641-28-03 06:58:005.04[facility] IzjgajpIGQCUPBMC3081-38-54 06:58:005.00 [facility] GacrgueREGALTLKD3875-53-68 06:58:001.26[facility] HermannCHEMISTRY 2011-12-05 06:58:001.25[facility] TampgxwGZZQLVIRB3804-60-82 06:58:004.0[facility] TpymjyvPVYWHBWJE3075-23-50 06:58:001.9[facility] AkjvwowKFTSVUUCM3314-42-19 06:58:009.0[facility] SgyvanyDUTEHKFZQ7008-39-93 06:58:0027[facility] [place] XMOVYTCAY2467-42-62 06:58:25812Nzgbbigg PstxdeeUFRGPDDPM3140-81-36 06:58:74459 [facility] BowyihiZZLIVLIHA3921-84-93 06:58:53367Nwsjjrif HermannCHEMISTRY 2011-12-05 06:58:001.4[facility] ZlotxgzVJQTEESSW8145-76-65 06:58:004.1[facility] QxjvucsCSQTWJZTE1819-19-79 06:58:0024[facility] FktepuvOIDSSJLIN1921-32-04 06:58:0017.1[facility] ZmdheszKFRPYCVRVG2257-43-60 06:58:000.0[facility] VWRFJJBGTI8888-68-77 06:58:000.0[facility] OlxzhgmZJRNTZWPZV5956-64-81 06:58:000.3 [facility] GqqroqyHDNKEZCWSV9457-24-91 06:58:003.1[facility] HermannHEMATOLOGY 2011-12-05 06:58:000.7[facility] RaprdupSDCTYURIEZ2601-00-95 06:58:009.3[facility] XdtqcmwJUQAWGLDCI1603-30-45 06:58:000.2[facility] TzmptebSBGWAQDJWQ0647-24-01 06:58:000.0[facility] FpegdeaXNKXGAVZPR5083-11-28 06:58:006.5[facility] FKFUKOQLNT1839-38-95 06:58:0090.2[facility] TskxzzpAZZLWOMKFG5992-14-19 06:58:00 1.15[facility] CeupfdbETTAOJSEBJ7329-97-89 06:58:00 Test Item Value Reference Range Interpretation Comments PT (test code = PT) 14.7 s 12.0-14.7 [facility] 06:58:00 Test Item Value Reference Range Interpretation Comments PTT (test code = PTT) 24.4 s 22.9-35.8 N [facility] GsueiaiBLBPBBKTTR5497-95-20 06:58:0016.1[facility]annHEMATOLOGY 2011-12-05 06:58:0032.8[facility] BbisydaMTYTPJQMEO5742-57-41 06:58:0010.3[facility] QfqlvlnUFZZCYGZIZ5185-17-19 06:58:0094.1[facility] XizfvzjMYCZVFRLAM5950-94-56 06:58:0031.7[facility] VjfuyqiTXNFBSYCLS5800-47-36 06:58:00 Test Item Value Reference Range Interpretation Comments MCH (test code = MCH) 30.9 pg 27.0-31.0 N [facility]IkohmvzQQMGPZPVJE2239-06-50 06:58:007.9[facility]annHEMATOLOGY 2011-12-05 06:58:0010.4[facility] QcqnoxbCBNYYHSDIE9367-97-92 06:58:003.37[facility] PfgdlhlSQNXABJGF0865-70-22 03:58:07751Ihfiweda QgdeavhFRNYGOYYC6121-82-29 03:58:67560Amzktkyk RmmosxkWMSSGNWLX4145-37-45 03:58:003.5[facility] [place] YBZRSRLPP2635-81-13 03:58:0033.0[facility] ZhzvksqXJXCXSIRP2009-33-33 03:58:00 100.0[facility] ZszbmhsRPRWZIVXQ0587-64-04 03:58:001.6[facility] HermannCHEMISTRY 2011-12-05 03:58:001.17[facility] GvebityKXGVCHQIO2806-55-98 03:58:004[facility] DrsrezmGWGTRYADM9070-59-51 03:58:0029[facility] YhsatjnKGLBJZGBE3701-33-61 03:58:0046[facility] SkmxtyfHDAXYFAWL4445-49-74 03:58:35563Wymgrkix [place] ZZKGFUHUG8130-64-50 03:58:0037.0[facility] JhgjzsyKNGIJLYHB9165-56-86 03:58:007.41 [facility] KyufuasDQWLNIOET8403-49-80 02:54:25671Dztfqcwf HermannCHEMISTRY 2011-12-05 02:54:001.2[facility] YfvtclxRVWBVPCFS9725-98-78 02:54:001.21[facility] FwxlnnhVSKGYFJAF8525-65-07 02:54:004[facility] AwauwgxBPERINLNC1995-03-37 02:54:00 29[facility] TvtmbruXQCEURDXH8980-96-58 02:54:24707Efsjzljb HermannCHEMISTRY 2011-12-05 02:54:0041[facility] ElnabkaYMWJYMGTX6823-99-64 02:54:0037.0[facility] ZohmfvnNAMSBBJIU4111-30-49 02:54:003.5[facility] KuxlifzURCQYAZNZ2205-57-71 02:54:007.45[facility] XennetqKOOAHKBXJ6427-15-54 02:54:86584.0[facility] [place] WADDKNYKS4947-48-46 02:54:0029.0[facility] WeiaezoSWRALIPJA2643-62-35 02:54:19611 [facility] VknzjyaQSREZWVEH9922-35-58 02:03:0031.0[facility] HermannCHEMISTRY 2011-12-05 02:03:66673Qjhmffip DwesjxuSXRJYZSPW8256-58-86 02:03:003.4[facility] QfwlwhlABXVALJHZ4198-81-66 02:03:85900Qespfvty RdmxbzeSSWVWBFAN1462-79-52 02:03:001.3[facility] YhyldmiICOHVHMLH9648-78-27 02:03:009[facility] [place] OFSUSFOEO3752-13-90 02:03:84769.0[facility] DnpegtrFLQKZMPQS6620-72-65 02:03:00 1.22[facility] ZlxjbavHYGNQFPRQ1603-47-13 02:03:0037.0[facility] HermannCHEMISTRY 2011-12-05 02:03:0034[facility] LgzrtseJTLKWPPVL4369-89-65 02:03:007.46[facility] EsljgwtJZOHRPQGS6358-75-68 02:03:0048[facility] MkyinfpDOEYUUIKX3608-57-68 02:03:47191Hncmdubp UkblpwoIWIYMIJTIA6313-66-44 21:00:00 Test Item Value Reference Range Interpretation Comments PTT (test code = PTT) 23.5 s 22.9-35.8 N [facility] NpcauvyZNBMJPTMXC4803-80-17 21:00:00 Test Item Value Reference Range Interpretation Comments PT (test code = PT) 14.0 s 12.0-14.7 N [facility] DcbwtelOSLHXZRSDT1191-19-72 21:00:001.08[facility]annHEMATOLOGY 2011-12-04 21:00:00Slight (12/04/2011 16:00:00)[facility] HermannHEMATOLOGY 2011-12-04 21:00:00Slight (12/04/2011 16:00:00)[facility] HermannHEMATOLOGY 2011-12-04 21:00:00Slight *ABN*(12/04/2011 16:00:00)[facility] HermannHEMATOLOGY 2011-12-04 21:00:00Slight *ABN*(12/04/2011 16:00:00)[facility] HermannHEMATOLOGY 2011-12-04 21:00:00Normal (12/04/2011 16:00:00)[facility] BANK FJLTCPE9285-53-82 05:15:00Negative (12/04/2011 00:15:00)[facility] VGJZPCW4524-45-63 22:56:00Product available (12/03/2011 17:56:00)[facility] OczkfncZLFFHEWHK5567-01-05 22:42:002.7[facility] HlgousfFXKHFZHIT7003-34-72 22:42:001.7[facility] HermannBEDSIDE GLUCOSE NJNAKBE9838-99-31 16:24:10107Yelglpqj HermannBEDSIDE GLUCOSE VWTSOOB0386-22-64 12:31:54461Idbxsbru HermannCHEMISTRY 2011-08-28 09:26:001.8[facility] DttinrtFANCITAOQ6454-74-86 09:26:0012[facility] RlshiliLYPFWAPRR6236-53-04 09:26:0036[facility] ZmqfcbiUCTOEAFPT6249-30-82 09:26:000.7[facility] DjnqfvfAOUBEOUAD7148-15-05 09:26:009[facility] FWWYYOJHB9267-41-77 09:26:64600Lcohlwvt EdukisuICKICCJND7253-38-07 09:26:003.9 [facility] OyqoyffASJXIEDHG3095-48-04 09:26:0012[facility] HermannCHEMISTRY 2011-08-28 09:26:001.3[facility] SxjtpdoDPLVJDNNK4030-68-67 09:26:0096[facility] NhhiepfUJUSEPXFC0744-06-69 09:26:008.1[facility] DujrqokMTRATARGV8263-94-40 09:26:003.1[facility] RznnpufLMLKEFJTA6189-03-33 09:26:006.9[facility] VWORUFWYU2541-54-48 09:26:25610Omkphijf VmlntawTGZEQWWVU6775-80-72 09:26:0028 [facility] YkqssqlIJHCSRVBM0576-04-29 09:26:0013.9[facility] HermannCHEMISTRY 2011-08-28 09:26:009[facility] HejnfqcYIJFOMITM0504-95-54 09:26:003.8[facility] OzczloaKLIBQONVU7143-30-99 09:26:000.8[facility] CqlzwtoFIEIVBIDWG1333-25-91 09:26:00 Test Item Value Reference Range Interpretation Comments MCH (test code = MCH) 30.9 pg 27.0-31.0 N [facility] LpnrallSOVPSEXHUG0298-84-43 09:26:0034.1[facility] HermannHEMATOLOGY 2011-08-28 09:26:0034.5[facility] QtfgvnnQNVWNPZZBZ2746-33-53 09:26:0011.8[facility] CmwhvupZWDJALTFMY1039-00-00 09:26:006.0[facility] EdivpryROZRQCFZJD0107-91-71 09:26:003.81[facility] QxprhsbKTVUCSUONV5934-03-53 09:26:009.0[facility] CLEQKKAVPY1104-46-45 09:26:0090.8[facility] RcdjuvjNDCEQHTRZY9153-89-56 09:26:00 13.9[facility] LaqusqySMGAJJCDUG3973-09-19 09:26:0060[facility] HermannHEMATOLOGY 2011-08-28 09:26:00 Test Item Value Reference Range Interpretation Comments PTT (test code = PTT) 31.9 s 22.9-35.8 N [facility] XqtblwwNIFJGTMKTQ1758-15-75 09:26:001.78[facility] HermannHEMATOLOGY 2011-08-28 09:26:00 Test Item Value Reference Range Interpretation Comments PT (test code = PT) 20.6 s 12.0-14.7 H [facility] UntyvnnLFTKMKCLBI6086-85-88 09:26:001+ *ABN*(08/28/2011 04:26:00) [facility] DgkbjsxISVIHGDRND1394-12-43 09:26:00Slight *ABN*(08/28/2011 04:26:00) [facility] PhfysqcVCLSUCIQOB7703-26-79 09:26:000.0[facility] HermannHEMATOLOGY 2011-08-28 09:26:000.2[facility] EngbcveMJYCUSQGDY6996-02-09 09:26:002.1[facility] GmcqbrtSGLYDBSACB1398-51-84 09:26:000.5[facility] PydgiwnHOHZCAHTVB7136-56-10 09:26:003.2[facility] BgsueqnHAYRZHJIFJ2559-59-43 09:26:000.4[facility] FZUJMDMUEC4833-23-40 09:26:003.9[facility] TvhueewIHZSJIUMZL0361-78-02 09:26:007.6 [facility] LyxupfaPATBITLIVM3630-52-53 09:26:0034.4[facility] HermannHEMATOLOGY 2011-08-28 09:26:0053.7[facility] HermannBEDSIDE GLUCOSE YLIMBIW4774-76-31 00:48:77912Ouvtzyap KepkdnuCWDITELNPK8464-04-21 19:57:0033.9[facility] BOCJHNHQFC5300-08-79 19:57:0011.5[facility] UlaujpkXJMBBHXMW4143-53-28 09:20:003.1 [facility] VayajdyOAALIRXLZ3489-76-27 09:20:0014[facility] HermannCHEMISTRY 2011-08-27 09:20:000.7[facility] TqssociTPUKIAAEL8506-43-94 09:20:008.2[facility] MirtoxjAKFZQCPBD7764-04-95 09:20:0012.7[facility] SedwgivXBWROIQSV8740-80-70 09:20:0029[facility] DhffyfiLYSAOSQCO3575-81-76 09:20:006.9[facility] MPPPJRSAM9604-58-08 09:20:0011[facility] VgjnfzyJVBZLQJZD7673-73-33 09:20:003.1 [facility] KldmdylHPTEQAVIP2124-53-84 09:20:0037[facility] HermannCHEMISTRY 2011-08-27 09:20:0013[facility] LesogzmXFJTJFKLI0098-42-56 09:20:000.8[facility] SqgcvfhJMMJXMTTX4341-53-31 09:20:003.8[facility] HeeiubgBXSCVIERI0894-05-73 09:20:0098[facility] BqoftgpYDYDXHQJD6493-28-70 09:20:0017[facility] [place] DVLCDUUXO8356-28-93 09:20:001.6[facility] ZmzcdsuZXXVUUNQU9175-83-50 09:20:59696 [facility] IxopfgcHVLQHECQH8159-45-53 09:20:003.7[facility] HermannCHEMISTRY 2011-08-27 09:20:67753Muxzvlkv YojhrefQOOERPDQJ2892-53-52 09:20:001.8[facility] HzvrainVOGTYSJGM7730-42-09 09:20:003.93[facility] EvsblvmXFTSUCUKZ9367-69-72 09:20:0052[facility] XyqluafAWUYKBHKU3011-66-20 09:20:24155Egbdextk [place] GZJMUOZPA9751-10-19 09:20:0028[facility] ClesugcIPFYWXFFZ1046-82-36 09:20:51458 [facility] CsnagzbNUUGLNPCOU4841-40-96 09:20:00 Test Item Value Reference Range Interpretation Comments PTT (test code = PTT) 32.0 s 22.9-35.8 N [facility] IorncfwSQSFNQLNRD4092-83-85 09:20:00 Test Item Value Reference Range Interpretation Comments PT (test code = PT) 20.7 s 12.0-14.7 H [facility] OlghrsjHZPGPFSLMS3971-07-97 09:20:001.79[facility] HermannHEMATOLOGY 2011-08-27 09:20:0013.7[facility] CpzsdklNWBFICOXXQ9846-75-09 09:20:0055[facility] KjttjidQFMYQWUTRI8259-48-13 09:20:009.1[facility] QlkkvneDRAXNDZTXX1595-59-13 09:20:0034.1[facility] IntfznhHUXZTYAWDW4506-96-43 09:20:0034.7[facility] NPHSENJZRM7401-35-54 09:20:0091.3[facility] KvofsuqEEKNXFAHJT5661-55-35 09:20:00 11.8[facility] DkvypwuZMXKHWKFHQ2639-86-27 09:20:00 Test Item Value Reference Range Interpretation Comments MCH (test code = MCH) 31.1 pg 27.0-31.0 H [facility] OmyluimPSICUZSZOM7566-77-08 09:20:006.4[facility] HermannHEMATOLOGY 2011-08-27 09:20:003.80[facility] EvsoylkDYZSXOBDCF1638-79-94 09:20:002.8[facility] JoibluxJRTFPRUSHJ6402-04-97 09:20:000.2[facility] MlmxpryGLYZBLZYVH8319-11-77 09:20:000.0[facility] SdzuxtjJCITNHRJDF9957-70-85 09:20:000.5[facility] ITGXLQDLNY7566-91-63 09:20:003.3[facility] OvmmtgtCPUXTTTIHQ5227-94-61 09:20:000.3 [facility] WatmjomOVOAXBBZLQ8876-22-92 09:20:002.9[facility] HermannHEMATOLOGY 2011-08-27 09:20:007.1[facility] LhvvynjYZERQVXDWA0195-72-25 09:20:0045.8[facility] OxyrzaqTCDCABIQXX0337-68-52 09:20:0043.5[facility] JauxyddJCYEBHTWG6732-90-93 01:25:002.5[facility] EsibzozDVEBUAJOS9581-94-86 01:25:001.7[facility] [place] MSZOJOTRB8167-93-32 01:25:0011[facility] XnbkisfTBMTVDSBM0500-01-33 01:25:000.6 [facility] RunwbmnLKMGELWKT3464-97-89 01:25:0038[facility] HermannCHEMISTRY 2011-08-27 01:25:0014[facility] CxuewweRMBVHJHAO9810-42-38 01:25:003.4[facility] VurhydaXISWMWSAI2076-48-08 01:25:93717Grxgnufx DwvsdsxXSSAQTYWL3253-08-40 01:25:001.7[facility] LrcygdgCJLQYANGA9184-31-13 01:25:49363Cgbbkdjr [place] SNNINZFUO6911-09-99 01:25:0020[facility] OmaajxbCZTQKFPJM9726-63-17 01:25:003.5 [facility] SitunmvDYUYVNFBL7983-69-74 01:25:76803Ayiwauxc HermannCHEMISTRY 2011-08-27 01:25:007.6[facility] WjbjxaeHSROCFFAI2071-87-26 01:25:008.7[facility] WysnyrcNGGATRDIT1125-26-94 01:25:0028[facility] XgztbwcXOJLXWOJP8448-23-08 01:25:000.8[facility] KtgqvjgYRLTTWLWB5044-68-96 01:25:004.2[facility] [place] XJHMGTSYC8068-41-66 01:25:0012[facility] HvjaescDEPTOOOGG9540-39-86 01:25:0012.5 [facility] XoxuvqaXYGRSFKPWY4645-29-85 01:25:001.82[facility] HermannHEMATOLOGY 2011-08-27 01:25:00 Test Item Value Reference Range Interpretation Comments PT (test code = PT) 20.9 s 12.0-14.7 H [facility] AxlkmkaQBQNNMSVFQ1957-84-93 01:25:00 Test Item Value Reference Range Interpretation Comments PTT (test code = PTT) 32.2 s 22.9-35.8 N [facility] KjtieuvFQAWXMZIGW1919-66-51 01:25:007.3[facility] HermannHEMATOLOGY 2011-08-27 01:25:0059[facility] EbmzaelZYYOAHBRER1671-61-07 01:25:0014.1[facility] OzynxrxBWNJLJNBAQ3930-67-72 01:25:0033.8[facility] NyrsafhJUCXXUVTLH3740-80-98 01:25:009.3[facility] UwryeieZICXGPOYXH9850-96-09 01:25:003.95[facility] PRRMPADDCN0422-34-54 01:25:00 Test Item Value Reference Range Interpretation Comments MCH (test code = MCH) 31.1 pg 27.0-31.0 H [facility] JknkrazCNGBAJBLUX4928-11-66 01:25:0091.8[facility] HermannHEMATOLOGY 2011-08-27 01:25:004.2[facility] BdastidLLOASEORNG9583-89-90 01:25:000.1[facility] JqzvsjaTSEMSMMTXV5924-97-58 01:25:002.5[facility] WnmekzdOEMFSMHTVY1006-53-98 01:25:000.4[facility] NogaiapCMTUPFEUYI5491-97-08 01:25:00Slight *ABN*(08/26/2011 20:25:00)[facility] LjdaoyrCDHBSHVFIW5087-97-64 01:25:000.0[facility] [place] INDFCZPJBO3862-95-77 01:25:004.9[facility] UskeiqlTSDAMOSCSG9022-46-43 01:25:000.5 [facility] WelrnhdWLPCPSKSHA9576-13-82 01:25:002.0[facility] HermannHEMATOLOGY 2011-08-27 01:25:0034.5[facility] EbhtimsKHOAGKHPMG7326-69-58 01:25:0058.1[facility] PjxndmwSKVJNPXPBN1562-06-90 01:25:00Normal (08/26/2011 20:25:00)[facility] BEDSIDE GLUCOSE EIUOEIJ1364-36-83 13:41:17294Ojkeflyb NeipcbhIDAJIRBGI3831-28-57 13:00:006.2[facility] KdqwxqwMOCPRTHIC2539-85-42 13:00:0016.6[facility] UBVYSCEQZ5332-80-56 13:00:009.0[facility] YfipjjaEODEHUGQJ2462-89-46 13:00:001.0 [facility] QyhezgeRWYZYMNEU2482-94-74 13:00:0021[facility] HermannCHEMISTRY 2011-07-07 13:00:004.6[facility] BthtzftMSRCKWMBE5264-96-10 13:00:44637Ynednxkk UofgjspHURGZVLCN6501-07-37 13:00:22891Yralsrxe MmojwldASUCZHADF1023-64-27 13:00:13910Jzwxwoeh EkvtijrGPMSNLSRR5497-65-23 13:00:0027[facility] [place] ESDSMPWMHD1548-90-16 13:00:009.4[facility] FoxgeclBQYKKQKOXJ7703-22-57 13:00:0049 [facility] CafedauNIELSJJEPW0534-60-29 13:00:0033.1[facility] HermannHEMATOLOGY 2011-07-07 13:00:0014.4[facility] BldazgyLXDMVNLCIE2586-64-26 13:00:0039.9[facility] NmhxpmtOIRUPYTGNA6690-43-11 13:00:006.3[facility] HimyzmyTTWSCHMFSK3767-14-28 13:00:004.26[facility] ZnuqvfbTPNCFDXOXR2496-71-78 13:00:0013.2[facility] EGGYKCYMPY3752-42-29 13:00:0093.7[facility] YwqfjviWYFVQCVACK0726-46-84 13:00:00 Test Item Value Reference Range Interpretation Comments MCH (test code = MCH) 31.0 pg 27.0-31.0 N [facility] UhjszjoUJZXCQUIBU8834-23-11 13:00:00Slight *ABN*(07/07/2011 07:00:00) [facility] JjoizqzRGOMHJDEWO5179-31-19 13:00:00Slight *ABN*(07/07/2011 07:00:00) [facility] XdpecezWTYZFMMZDU5058-15-29 13:00:00Slight (07/07/2011 07:00:00) [facility] VwijoasSHLUCEVLHD4142-57-56 13:00:000.0[facility] HermannHEMATOLOGY 2011-07-07 13:00:000.2[facility] FibigdxXRLJHYHFTM3611-80-23 13:00:003.4[facility] GqrnqxtCKZHYNFFTO7579-93-74 13:00:000.4[facility] SmaihejWGFHIDRYYA3243-47-59 13:00:000.4[facility] RbtaatlAVTXETZHCJ0828-50-21 13:00:002.3[facility] [place] SPNFYUUNMQ5056-00-74 13:00:003.1[facility] RnfcobwUBEUPRQHUS2126-76-10 13:00:005.8 [facility] VjyfmmkWZWCLKIKHI3639-86-55 13:00:0036.1[facility] HermannHEMATOLOGY 2011-07-07 13:00:0054.6[facility] HermannBEDSIDE GLUCOSE HMKAPRQ1369-93-74 02:20:94125Snocrkaz HermannBEDSIDE GLUCOSE BCSLVAH4961-48-71 22:22:0086[facility] HvnhpdxECVVWYOWE4775-33-21 11:45:002.680[facility] XuwbrgdYOOQXTXAF5734-17-92 11:45:002.64[facility] WqwiqxvJEFCITZCP1159-45-79 11:45:0044[facility] IURDVOUAZ7313-97-19 11:45:0039[facility] VutvdtjMSFIXMMMC7620-48-34 11:45:36564 [facility] UqqawfqLXMHELTQC2051-52-90 11:45:30704Maqeyetr HermannCHEMISTRY 2011-07-06 11:45:007.3[facility] FoghzkzGYLAIIDNP3183-57-25 11:45:003.7[facility] QoocfrmYKDJQQGJD7484-81-74 11:45:0051[facility] YxcmzemDHGGCKGMG9138-59-01 11:45:0016[facility] TqlzldjLAWTFFWGY0440-98-29 11:45:003.6[facility] ZBKRGJCQQ8207-33-80 11:45:001.0[facility] GzfojlgNXKLLZGHE2941-50-52 11:45:0012 [facility] DlkcqiqZZVNBYOBA6677-86-69 11:45:000.4[facility] HermannCHEMISTRY 2011-07-06 11:45:008.8[facility] IxfypifNCZHLVSLR9122-58-51 11:45:0013.5[facility] LmpsnsiXZRVOPSBF2533-09-46 11:45:0017[facility] BxkowddCLMLRLHRN3204-47-91 11:45:0020[facility] EboamdnMKXHTKNSB6134-77-90 11:45:26152Jfvautep [place] JGVMGGQJE5477-20-70 11:45:0028[facility] FbqzsniIHPYRXDCV6607-69-61 11:45:001.2 Memorial ZadwealVMIKXWMZQ6838-79-44 11:45:003.5[facility] HermannCHEMISTRY 2011-07-06 11:45:87489Xzfnhazv LsitrhrJKRJOYEHD0839-02-41 11:45:96740Abcreqlg XjkkenhWZAPBBYJR5597-44-40 11:45:000.9[facility] EsmapalAHKTCZLFU8987-44-35 11:45:000.19[facility] LleibpySBEZAJDVR1319-35-88 11:45:000.7[facility] [place] HCVDKDCXB3978-36-60 11:45:0075[facility] MivmramZEYNSGERAZ7611-06-95 11:45:0093.0 [facility] YszoifmQRKTQSMNWX5372-66-16 11:45:0033.8[facility] HermannHEMATOLOGY 2011-07-06 11:45:00 Test Item Value Reference Range Interpretation Comments MCH (test code = MCH) 31.4 pg 27.0-31.0 H [facility] WfgjvsrHGMHCBWVVL3291-19-94 11:45:0012.4[facility] HermannHEMATOLOGY 2011-07-06 11:45:0036.7[facility] BepuvdeIUKOJJXQQT2017-71-86 11:45:009.7[facility] MmykbkjHXJDZXOJUM8701-38-62 11:45:0014.1[facility] OtfukhxEGKHSCJLQS5999-98-66 11:45:0046[facility] IorhsexELBUZUWTWQ8423-22-81 11:45:005.9[facility] [place] RNMSRYLTCC4589-66-04 11:45:003.94[facility] MchwkzxEDAOKNEKTB4688-35-84 11:45:00 Slight *ABN*(07/06/2011 05:45:00)[facility] MmhukidXFLXTFBROZ0418-09-93 11:45:00 Slight *ABN*(07/06/2011 05:45:00)[facility] EdcqzhtHQNUTKWCGX4186-82-69 11:45:00 Slight *ABN*(07/06/2011 05:45:00)[facility] PfajoakQHSOZSMHMK3584-75-79 11:45:00 Slight *ABN*(07/06/2011 05:45:00)[facility] DasscksIKEARKAVMK2991-16-59 11:45:00 Slight (07/06/2011 05:45:00)[facility] RehahmoSKINZANFSH2949-79-05 11:45:001.0 [facility] TzqzcxzJQOXLRJYUN2313-93-10 11:45:001.0[facility] HermannHEMATOLOGY 2011-07-06 11:45:005.0[facility] SxmhrauILKCOJRFBD4391-76-34 11:45:004.0[facility] FxoinhhXZUUGRNLJU6121-11-99 11:45:0048.0[facility] WgvuulkBVWELRFPDE7888-41-22 11:45:002.5[facility] EotrjfyTIKJXFASMB6776-74-17 11:45:000.3[facility] [place] QRKLHKESCV8016-35-52 11:45:000.1[facility] FgpmublYPYUSMSZQM2296-52-32 11:45:000.0 [facility] PnhtmjqFYMKAUSQJI9292-50-98 11:45:0039.0[facility] HermannHEMATOLOGY 2011-07-06 11:45:002.0[facility] UbsnircFQSXYEXTIL7079-82-77 11:45:002.8[facility] PexszxfXCINXBUZF6545-15-35 03:56:83139Mehijcsa RgweudsRBMDJSRUQ4119-92-42 03:56:000.5[facility] KpbncndCCLDHTYKI0815-08-27 03:56:000.18[facility] GYFLAHNQK7209-20-94 03:56:0079[facility] JlutfkhKQFVFDSXQ6237-87-55 03:56:000.8 [facility] ZupkstmQFFEKYFAT2190-27-22 03:56:004.4[facility] HermannCHEMISTRY 2011-07-06 03:56:000.4[facility] AzwqkehBBMPNNRWV5405-43-06 03:56:0014[facility] MfktbupESXVVSOKD5888-98-67 03:56:008.8[facility] VuedlidSPOPYXZVL3346-63-82 03:56:0014[facility] OpqpvssRWIKENAOT8095-68-56 03:56:0033[facility] HGPOIRCBJ7809-63-74 03:56:001.4[facility] QpfzdteAZJWTLYUB3813-47-06 03:56:49307 [facility] JlkyorkTUNUPYTAM5646-36-65 03:56:003.8[facility] HermannCHEMISTRY 2011-07-06 03:56:69998Yygfuszt BnwmnoxQOEGNDHHS4629-06-12 03:56:0018[facility] QzeskklTDMAWNSNB1426-72-71 03:56:0054[facility] UlzhyenXUTTXUZJX1378-22-81 03:56:008.9[facility] PzsbpgwQYKSGOEVN0412-09-12 03:56:008.1[facility] FOCCOSUAA1700-83-08 03:56:003.7[facility] JvtdlgqUYJHTZRQJ6447-79-21 03:56:0020 [facility] OfhuxwcADNHHWSOX9626-61-97 03:56:66813Kwyolonr HermannCHEMISTRY 2011-07-06 03:56:000.6[facility] XrdfvjqHCTTDQLOLM1606-18-86 03:56:00 Test Item Value Reference Range Interpretation Comments PTT (test code = PTT) 27.8 s 22.9-35.8 N [facility] BtiejciQLHJNPJAYC1934-18-12 03:56:00 Test Item Value Reference Range Interpretation Comments PT (test code = PT) 17.7 s 12.0-14.7 H [facility] FsafiouRBECHTLHGW4604-29-45 03:56:001.46[facility]annHEMATOLOGY 2011-07-06 03:56:004.11[facility] ZbjjzzeHDWBMULOAY3220-55-37 03:56:0049[facility] MnvvplxIHKCHKMRUH3540-17-05 03:56:009.1[facility] RrxflitKOORTZYHCC3687-74-20 03:56:0014.1[facility] JzkpphySAQUKLMZUV4743-84-48 03:56:005.5[facility] QCFZCYWZTS5441-45-23 03:56:0037.2[facility] ItenydxFUVTBUIUDF3865-75-42 03:56:00 90.5[facility] DganrshVXTTSTPGWZ2188-41-81 03:56:00 Test Item Value Reference Range Interpretation Comments MCH (test code = MCH) 30.8 pg 27.0-31.0 N [facility] SzstfupYECPTTCJIH7489-88-52 03:56:0034.0[facility] HermannHEMATOLOGY 2011-07-06 03:56:0012.6[facility] HkwqnudQTFNJWRBKN3419-93-49 03:56:002.0[facility] FpjirkkJLBQLEGEFW6087-45-30 03:56:000.4[facility] IbqhwxcYNMZGMGMCA4794-01-70 03:56:00Slight *ABN*(07/05/2011 21:56:00)[facility] GfrovxeJGLXXIAJSB7946-09-14 03:56:000.1[facility] FudharjHEIUFDCPEP8881-80-37 03:56:0036.0[facility] ZENHETNXKZ1895-48-92 03:56:000.1[facility] AlazchtXJSPZJJEWF5889-61-48 03:56:003.0 [facility] CogtzwoYCLRBHJQGW7818-30-31 03:56:0054.0[facility] HermannHEMATOLOGY 2011-07-06 03:56:000.0[facility] MgmnzmvXMODAGZGFL4302-84-80 03:56:007.0[facility] FukrolfDIOETVXNIP7506-41-23 03:56:002.0[facility] BhfglkfEJLIVSZRZF6289-53-55 03:56:001.0[facility] AsfowpsMMSRGQZOVW4531-84-21 03:56:000.0[facility] HMUEGRJFZY4610-36-33 03:56:002[facility] AbnwojtJUPBCPRVJQ1012-69-32 03:56:00 Normal (07/05/2011 21:56:00)[facility] HermannBEDSIDE GLUCOSE PCYICKX2747-47-86 17:34:37058Iaucgnve HermannBEDSIDE GLUCOSE WOSIXWS4212-39-01 13:53:96624Vkzqtrqb UrytscvEEWDGODPH8394-30-11 11:00:002.1[facility] RcbxdieBEIIWPSQF7694-01-72 11:00:0010.4[facility] LisayyeWHQCCBWCO9724-46-04 11:00:0029[facility] BDRIRORFS9337-89-18 11:00:008.2[facility] LxspsyyBRLUUFENS3267-40-64 11:00:66124 [facility] GvfihppCTILLDXVQ2084-44-99 11:00:39347Mosgmssg HermannCHEMISTRY 2011-05-05 11:00:004.4[facility] LupwxnhWMRXXCEGL7074-17-19 11:00:001.2[facility] WoejybeQOLFWLHWS5855-97-67 11:00:0086[facility] MahbsuoSBGFYLSUH9928-34-37 11:00:0025[facility] ZduxcrgSZJXAZWTL3063-18-60 11:00:0089[facility] OFEZMPAGC7385-27-54 11:00:0042[facility] WquexhmLHHVGTNGM3410-49-82 11:00:73924 [facility] OmqijvoXWRUZRION4674-63-76 11:00:71411Mfwobhde HermannCHEMISTRY 2011-05-05 11:00:003.67[facility] LjiqhsbKJPMOQFBK0732-34-17 11:00:002.5[facility] OpsozvtCHMAWWIXYG8433-40-77 11:00:00 Test Item Value Reference Range Interpretation Comments PTT (test code = PTT) 44.8 s 22.9-35.8 H [facility] XqfapdtBPZLPDPREL6592-45-79 11:00:00 Test Item Value Reference Range Interpretation Comments PT (test code = PT) 21.1 s 12.0-14.7 H [facility] TmvfdbkMJLRQOPCHU0220-86-86 11:00:001.84[facility] HermannHEMATOLOGY 2011-05-05 11:00:00 Test Item Value Reference Range Interpretation Comments MCH (test code = MCH) 31.5 pg 27.0-31.0 H [facility] EkgzutwXKETJNACGX0496-41-25 11:00:009.7[facility] HermannHEMATOLOGY 2011-05-05 11:00:0034.0[facility] PzpheerVQDBFNSWOL8988-01-02 11:00:0048[facility] PixyqubESGJWUHPIH2962-63-67 11:00:0012.5[facility] KkhnrvwHYTPYXGAZZ9967-22-08 11:00:004.3[facility] NcaaexdNZREJKOWDB1169-57-87 11:00:003.97[facility] TAQQXTYQEI8650-96-36 11:00:0036.7[facility] WambvmlPTNLXUJJYY5556-63-11 11:00:00 92.5[facility] JmmyqnvMYQORUWWOQ6237-76-38 11:00:0015.1[facility]annHEMATOLOGY 2011-05-05 11:00:00Slight *ABN*(05/05/2011 05:00:00)[facility]annHEMATOLOGY 2011-05-05 11:00:00Slight *ABN*(05/05/2011 05:00:00)[facility]annHEMATOLOGY 2011-05-05 11:00:000.0[facility] FjhsgonUZYWNEGFNP8598-07-85 11:00:000.0[facility] DholohzWYLTJKORJJ5553-67-48 11:00:0051.0[facility] XcfbzzeLWIJOKBMFD2491-34-46 11:00:000.0[facility] GvrkjdmNYAAPNWQPU6789-85-11 11:00:0042.0[facility] VWYWGUIKZA1939-17-00 11:00:000.1[facility] KejaxbiCKJNJBAAQT0224-00-58 11:00:000.2 [facility] JnynqjqIAFOLMAQNT8262-78-83 11:00:002.2[facility] HermannHEMATOLOGY 2011-05-05 11:00:001.8[facility] PvvaaneNBLIDARKKG2550-24-02 11:00:002.0[facility] VhqngoyIFFHYDEYAX0773-59-25 11:00:005.0[facility] HermannBEDSIDE GLUCOSE TESTING 2011-05-05 03:20:10652Teqfstkj FlwmrkaUZVOCZTBJN1332-57-21 10:30:000.0[facility] WvolvwvSOUGKZHSYC4871-22-17 10:30:000.1[facility] BdfzkroGBBFVFBDTD9951-33-99 10:30:006.1[facility] XvgprebPRMSJZSKEX2058-95-24 10:30:0033.5[facility] XERYQYFQFW8364-91-72 10:30:0056.9[facility] MdumxfuVVDJSYIZDQ7684-57-13 10:30:00 1.5[facility] YjkzelbCCWCSSNCZE0638-57-24 10:30:002.6[facility] HermannHEMATOLOGY 2011-05-04 10:30:000.3[facility] RqolvwtLMRDOTRZEH6960-43-69 10:30:002.9[facility] HieldefUREDHNIVAC3777-07-53 10:30:000.6[facility] XhkmfrgXCGXVNXYOM4440-89-67 10:30:00 Test Item Value Reference Range Interpretation Comments PTT (test code = PTT) 43.4 s 22.9-35.8 H [facility] YljawnlLISVNKKNTI1957-54-16 10:30:00 Test Item Value Reference Range Interpretation Comments PT (test code = PT) 18.2 s 12.0-14.7 H [facility] TrgbszeWBIGOZSRCT3368-62-12 10:30:001.52[facility] HermannHEMATOLOGY 2011-05-04 10:30:009.8[facility] GoufxiwVWJKIXZHGA7309-63-25 10:30:0034.2[facility] CizocgyKZBESQXWHC5812-52-74 10:30:0015.0[facility] CtzifhgWWFUCYKJNP8388-98-61 10:30:0051[facility] JtsgpftTDCVFKMDJQ4385-31-85 10:30:004.06[facility] SQBSAJSWTT5020-42-26 10:30:0012.6[facility] OgrskjsZPZZHYXZML5870-12-68 10:30:00 Test Item Value Reference Range Interpretation Comments MCH (test code = MCH) 31.2 pg 27.0-31.0 [facility]YPIIA0416-55-86 10:30:004.5[facility] HermannHEMATOLOGY 2011-05-04 10:30:0037.0[facility] OwbnbpbDFTPRFAJBA9530-16-67 10:30:0091.1[facility] MmimkmtDXAPCBDWSF5160-54-51 10:40:001.41[facility] XudiidbVHHLTTQKPZ4170-02-02 10:40:00 Test Item Value Reference Range Interpretation Comments PT (test code = PT) 17.2 s 12.0-14.7 H [facility] HospitalHrybilzTGWSWLNQZX1999-90-71 10:40:00 Test Item Value Reference Range Interpretation Comments PTT (test code = PTT) 37.6 s 22.9-35.8 H [facility]mxgeyvICPFMSCWZE7438-18-97 10:40:0010.0[facility]MAT[facility] 2011-05-03 10:40:0066[facility] ZuvaaedMNAGBDMVON1953-69-15 10:40:0091.6[facility] UsstgstFCCXYFZULZ0351-47-82 10:40:00 Test Item Value Reference Range Interpretation Comments MCH (test code = MCH) 31.3 pg 27.0-31.0 H [facility] HvtdeglYCNNFCXDZD8536-42-77 10:40:0034.2[facility]ann[facility]MATOLOGY 2011-05-03 10:40:0015.4[facility] QybtdedUVXALTSBTF1311-91-48 10:40:0038.7[facility] MbtnnqqJGDUBELDLD8467-43-17 10:40:004.8[facility] TrdfyoeCHMIVLYWSE1246-40-19 10:40:004.23[facility] LxxntfbTINTTVJSYQ0493-03-22 10:40:0013.2[facility] HYIBXDEJFO0785-65-33 10:40:00Slight *ABN*(05/03/2011 04:40:00)[facility] LTTTQLXBKN3675-66-54 10:40:000.0[facility] NvunuicUNZRTMJZOW5075-35-56 10:40:00 Slight *ABN*(05/03/2011 04:40:00)[facility] CwzoktqHQOLZDZNCX0775-61-57 10:40:00 2.0[facility] MavstviNJLCZTLAFT5721-46-10 10:40:006.0[facility]annHEMATOLOGY 2011-05-03 10:40:004.0[facility] KytvxxbADLRYDRRUH5974-79-67 10:40:001.0[facility] WlxosfyEUMRTGZTAS0599-31-93 10:40:000.3[facility] TwyjcmnCQFYDOYOHK5025-93-33 10:40:0054.0[facility] XnaszhdQGYPXQSEMU9407-41-55 10:40:0033.0[facility] IVVDZQFJZX1934-41-62 10:40:000.2[facility] CpqhgafDIEZJCHSKY8100-78-75 10:40:002.7 [facility] QpjybjiRCOEJJUQYH2809-48-79 10:40:001.6[facility]annHEMATOLOGY 2011-05-03 10:40:000.2[facility] SahjlecYLMPZDXPKE7016-29-47 10:40:000.2[facility] EiquewaBZJNXIITIN5933-06-11 10:40:000.0[facility] KbbpenkHRBUEBLMYH7177-90-82 10:40:005.1[facility] EmkwuopIKRZVAGPCJ0904-86-00 10:40:003.4[facility] ZUJGWEUIKV9869-89-38 10:40:000.4[facility] BvmigckJBWDHMDEYL4250-76-58 10:40:001.7 [facility] FfpuveyWZCRLSAIJT1705-17-23 10:40:002.6[facility]annHEMATOLOGY 2011-05-03 10:40:0036.4[facility] XcbtiptKYAUYGXONE1165-20-40 10:40:0054.7[facility] XsvqozzOMSFEMOYNE1010-80-35 10:15:00Slight *ABN*(05/02/2011 04:15:00)[facility] KwzixdvAJNPRYGAPY0845-04-26 10:15:00Slight *ABN*(05/02/2011 04:15:00)[facility] TptugmfWATCTKREGZ2007-93-11 10:15:000.0[facility] UpanmfqPMQGJOJECC0190-43-71 10:15:00Slight (05/02/2011 04:15:00)[facility] PcuxbjbQZRVPUYJHP4631-68-21 10:30:00Slight (05/01/2011 04:30:00)[facility] QrbcdxnMWBULXIBFS8886-82-16 10:30:00Slight *ABN*(05/01/2011 04:30:00)[facility] JydgsrfHMZILWKTAU4460-20-71 10:30:00Slight (05/01/2011 04:30:00)[facility] UmtqhhrXIQFXWFUHB9404-32-08 10:30:00Slight *ABN*(05/01/2011 04:30:00)[facility] XzbcmjwWYNCQPBLUX0353-23-81 10:30:005.0[facility] GkcthwpJWMZJBVQLX4458-29-98 10:30:000.0[facility] UFMBIOSVUS3897-66-48 16:15:005[facility] MzwkfnlCYVVXFBRTD9267-80-50 16:15:75443 [facility] XbqezdtREUKWBVHUS1011-34-51 16:15:816339Jebeebyf HermannHEMATOLOGY 2011-04-30 11:00:00Normal (04/30/2011 05:00:00)[facility]ann[facility]Y 2011-04-30 11:00:00 Test Item Value Reference Range Interpretation Comments dRVVT (test code = dRVVT) 36.9 s N [facility] BgyrptsGHQJPYQBOP8694-14-42 11:00:00Negative (04/30/2011 05:00:00) [facility] XboghigCROZHNHUSH3587-66-95 11:00:007.0[facility] HermannIMMUNOLOGY 2011-04-30 11:00:001.65[facility] NrdpbyrTEGNEUYJYG3809-33-22 11:00:000.78[facility] UkqpctnFUCWTXWRWX9015-12-45 11:00:000.69[facility] BfbhaxmDQSCJKDAIZ3764-13-81 11:00:0051.1[facility] AzrxyqnCMQQTWDQSW7743-56-76 11:00:004.2[facility] QIHIFJIVUQ1615-28-60 11:00:0011.2[facility] IrknrseBZCIQMOVQH4251-12-13 11:00:00 9.9[facility] CgpgecqMCKINAAPIW7048-91-30 11:00:0023.6[facility] HermannIMMUNOLOGY 2011-04-30 11:00:003.58[facility] RqbgvmfEKNRQRFYSY7663-80-42 11:00:000.29[facility] DyvvidtYKENFRTVWK4898-13-95 11:00:00<9[facility] ZvpqzxpYMFUSTVFRG9027-30-84 11:00:00<9[facility] VdggxhmVWJZZLWTYY2030-35-46 11:00:00<9[facility] [place] DSDARBELOA0307-27-58 11:00:002[facility] YonfhxnCBZCGMJVSA4478-69-81 11:00:004.3 [facility] DoblgmeRSOKFVOQFF4524-55-40 11:00:006[facility]annCHEMISTRY 2011-04-29 11:20:008.3[facility] XzylhzsZVMJTTIKF5696-31-74 11:20:004.5[facility] TozgvjfYTKYSEQHH2162-82-00 11:20:12866[place] FvmumneYQKHNKRAR8056-70-81 11:20:0031[facility] QukpvivYKJUKJDYP8913-49-39 11:20:81780Miglkvbb Noel VBGNGELGN2448-56-71 11:20:0022[facility] LvtxiadAVSLDZSLZ0614-83-35 11:20:001.4 [facility] BenwojlIJIGLPRMO9134-10-76 11:20:16413Juuhyibc HermannCHEMISTRY 2011-04-29 11:20:0011.5[facility] EhlpdvnBVANIJYKR2544-14-87 11:20:007.2[facility] RkopswhXWTXYHILW5847-28-34 11:20:003.540[facility] KafdreoSFNQMJAHAR9266-74-14 11:20:00Slight (04/29/2011 05:20:00)[facility] HermannBACTERIAL - SEROLOGY 2011-04-28 16:58:00Negative 1(04/28/2011 10:58:00)[facility]annCHEMISTRY 2011-04-28 16:50:006.7[facility] WxipwgbTZZYQHEAP7577-13-51 16:50:0015[facility] TaeybsdFDBLBYQUZ2159-99-63 16:50:003.2[facility] DnhebanFWKADCCXY6875-36-10 16:50:0046[facility] VvxmcuyKFCMCRJGK0340-83-40 16:50:000.2[facility] RGEURTTRL7254-64-65 16:50:0017[facility] ToyrbjjABHREXMFU5855-83-76 16:50:000.8 [facility] AvzkmsjLHFUHYOJC9619-99-90 16:50:003.5[facility] HermannCHEMISTRY 2011-04-28 16:50:000.6[facility] EzgzcdvSSQJFXOVS2818-67-28 16:50:000.9[facility] OmfaqrvCJWBTAJJQ4684-58-67 16:50:0030[facility] YgvfodiCJSIAFTFC3597-98-03 16:50:008.0[facility] BwgdxekSPQKRHSQO3039-24-26 16:50:0099[facility] NSPQVZLWC7772-99-08 16:50:003.6[facility] MefazngYZQICAWAK5900-10-48 16:50:0026 [facility] WefbzipMCHONPZSL1778-63-71 16:50:44832Jhocodol HermannCHEMISTRY 2011-04-28 16:50:00302Kgphqjsx RvgarymLEWIAHNBP1381-47-84 16:50:001.4[facility] IgyvpeyCKBUBFPDS7713-92-24 16:50:0011.6[facility] ZzaresmWHZCCHZICK4302-07-10 16:50:00 Test Item Value Reference Range Interpretation Comments Pat Od Value (test code = Pat Od 0.084 1 Value) [facility] HospitalArmdbixGODZKEPZPJ3692-07-77 16:50:00 Test Item Value Reference Range Interpretation Comments Pos CO Value (test code = Pos CO 0.376 1 Value) [facility] XonmdbtQPXXKCACCJ8867-77-71 16:50:00Negative (04/28/2011 10:50:00) [facility] GwagzftKANCWDTBKS0205-87-18 16:50:00Normal (04/28/2011 10:50:00) [facility] [employer] KGCYBQB0144-70-23 10:52:00Product available (04/28/2011 04:52:00)[facility] [employer] RLGCUIB5799-29-54 10:52:00 Negative (04/28/2011 04:52:00)[facility] HospitalSeotiokNQQMXIJAO8324-94-52 08:40:000.70 [facility] WiicjjtMYYALTTGP2701-11-59 08:40:004.9[facility] HermannCHEMISTRY 2011-04-28 08:40:89217Ewhujroz TryxjpdURSBEQHJJ0951-64-79 08:40:43096Qbqlczog PybsduhMWESJKKDQ0577-91-77 08:40:003.7[facility] AmxpudfRSDXTDWDJ5123-72-30 19:22:0024.0[facility] XkyxbvfHEWQIPHYIK0669-33-84 19:22:00Positive *ABN*(02/17/2011 14:22:00) ??[facility] QwuxfpaWJWYUWNYKJ3426-50-98 19:22:001:40 *ABN*(02/17/2011 14:22:00) ??[facility] HospitalannBEDSIDE GLUCOSE PPIGISL8339-42-97 15:42:78636.0[facility] HermannBEDSIDE GLUCOSE UAGLISX4001-82-39 12:42:52515.0 [facility] CqhezvgXOITBPUMV3216-81-84 09:15:002.3[facility] HermannCHEMISTRY 2011-02-17 09:15:0010.0[facility] NwjmqbeQZVCEUVWT5610-23-98 09:15:000.5[facility] JksgjdyYGQNQTJQV9744-38-82 09:15:0047.0[facility] KvrgdkuTJUNFMIYL8388-86-56 09:15:0026.0[facility] OpbtezfIWATFWZPZ1359-56-60 09:15:007.0[facility] JSHRNNJBA2111-79-81 09:15:008.5[facility] JdglqzeXGLLKRTFF2990-44-19 09:15:0030.0 [facility] GkweprzYDWWFLZYW9330-55-40 09:15:81563.0[facility] HermannCHEMISTRY 2011-02-17 09:15:004.5[facility] KgihgruRHOGMNHSC9629-05-20 09:15:002.9[facility] SqihtedAIYBMSMPC5400-66-96 09:15:0016.0[facility] HdhlntiNTRDTPOGC7877-54-38 09:15:90187.0[facility] GouobrcLIZGLGDSL6495-29-36 09:15:001.2[facility] BWWHYPFJO6376-93-02 09:15:48684.0[facility] ShrfzgjAUTSWFYJQ5513-49-56 09:15:00 Test Item Value Reference Range Interpretation Comments A/G Ratio (test code = A/G Ratio) 0.7 1 0.7-1.6 N [facility] OwfblhbQXQXWWTRU7889-19-32 09:15:004.1[facility] HermannCHEMISTRY 2011-02-17 09:15:00 Test Item Value Reference Range Interpretation Comments B/C Ratio (test code = B/C Ratio) 13.0 1 6-25 N [facility] YpcantjUXYKHFMLL3649-76-69 09:15:0012.5[facility] HermannCHEMISTRY 2011-02-17 09:15:003.2[facility] VknodllWBMLKJSCOO4700-55-70 09:15:54902.0[facility] JfmxjpdMEPGJWFNED8712-50-82 09:15:009.7[facility] PxicapxVUDQGTNLYO3745-67-18 09:15:0014.1[facility] GltpdbgUAYPLOSDWZ2413-35-38 09:15:004.65[facility] [place] VKFDBCYQAL2026-30-39 09:15:0015.1[facility] TzjoqwrTOZSHFMDPW7509-36-94 09:15:00 8.9[facility] UisgsvwMRDZKVLQDY6490-06-12 09:15:0042.5[facility] HermannHEMATOLOGY 2011-02-17 09:15:0091.4[facility] BebffgpRBQHUGMESQ0575-39-12 09:15:0033.3[facility] UpuxxdxYBYYWDSHYH1314-04-31 09:15:00 Test Item Value Reference Range Interpretation Comments MCH (test code = MCH) 30.4 pg 27.0-31.0 N [facility] XawulquSURGJPPOSL3350-95-57 09:15:007.8[facility] HermannHEMATOLOGY 2011-02-17 09:15:000.8[facility] HlbkqqyNSSYJMBLBR9559-13-88 09:15:000.2[facility] HpltwtzCZMEHNTHWX8774-20-27 09:15:000.0[facility] CfjhrnvVONARAKQBX9007-91-23 09:15:000.0[facility] OxulvqiWWWDWCQNCT3284-12-03 09:15:009.5[facility] ETAYGNPZTU4576-26-27 09:15:000.2[facility] VfytzfaTCJKOCOIRV6759-83-32 09:15:00 88.2[facility] UzsfkhqHJLLUVAPVU1389-75-05 09:15:000.3[facility] HermannHEMATOLOGY 2011-02-17 09:15:001.8[facility] HermannBEDSIDE GLUCOSE GJCCKKB5617-92-77 01:39:00 155.0[facility] RagrgukHXLVCWAUHJ6767-94-28 10:05:00 Test Item Value Reference Range Interpretation Comments INR (test code = INR) 1.07 1 0.85-1.17 N [facility] HospitalSxkwxrtPZALWBCXMO6160-05-09 10:05:00 Test Item Value Reference Range Interpretation Comments PTT (test code = PTT) 28.8 s 22.9-35.8 N [facility] HospitalUidwrpvFHYWTLHLIX7773-56-16 10:05:00 Test Item Value Reference Range Interpretation Comments PT (test code = PT) 13.9 s 12.0-14.7 N [facility] QkxobjrRJBAHLUHB1553-71-66 09:15:002.8[facility] HermannCHEMISTRY 2011-02-16 09:15:0019.0[facility] PhdvqjaTZYPZDYJK9792-57-92 09:15:008.1[facility] QwmjvgpGYVZTTIDS0799-07-58 09:15:006.4[facility] SzbcdizCDLDYQTKP3130-32-07 09:15:0027.0[facility] OjdchmaWRINKTGBC6352-99-07 09:15:002.7[facility] YJULIBBEY6386-51-96 09:15:005.0[facility] DlqvoeiNXAGEBBJV4580-05-87 09:15:000.4 [facility] QweahgoMFGATKMQY0010-89-56 09:15:0038.0[facility] HermannCHEMISTRY 2011-02-16 09:15:0093.0[facility] PaipuahPFMGVIIZK3079-87-44 09:15:003.6[facility] NxldeduATEMFGOPS4678-69-57 09:15:93687.0[facility] EkjygnoHGZSURUYX0418-11-47 09:15:95712.0[facility] GoshfdrOEMIIIEGW8301-57-15 09:15:0019.0[facility] [place] NAWTAXCIT3060-61-01 09:15:001.2[facility] MkkzbmwJBVUIAAPL3047-82-25 09:15:00 Test Item Value Reference Range Interpretation Comments A/G Ratio (test code = A/G Ratio) 0.7 1 0.7-1.6 N [facility] IxnzcvmUQUJPYBPM0009-77-76 09:15:003.7[facility] HermannCHEMISTRY 2011-02-16 09:15:00 Test Item Value Reference Range Interpretation Comments B/C Ratio (test code = B/C Ratio) 16.0 1 6-25 N [facility] BsekuhnATBMXTSHR4095-28-93 09:15:0011.6[facility] HermannCHEMISTRY 2011-02-16 09:15:002.3[facility] RkyrxauDEMYFOHDSJ6766-63-95 09:15:0018.7[facility] XeozxswOBWYJWLOWO0603-85-03 09:15:0075.9[facility] FxfeajqAZYNGHKTXJ3519-51-30 09:15:000.0[facility] LpewscwRCAUUWXETG1750-89-02 09:15:000.1[facility] [place] [place] SEQGNHUEKC7672-78-21 09:15:001.8[facility] YxsdtnqMWZSATTOQX6927-96-84 09:15:000.4 [facility] EsptpwvZEYRJLDFXA0671-86-86 09:15:000.2[facility]annHEMATOLOGY 2011-02-16 09:15:007.3[facility] XqtrkorHSOVLTRUMM5720-93-07 09:15:000.9[facility] GbhcnbuORJFLBZTYZ8151-74-47 09:15:004.3[facility] AqjuomoUQBUJLBVMY3944-58-71 09:15:0013.0[facility] EmqzskfTOQJZJOLCB3614-78-39 09:15:0038.5[facility] [place] [place] MPWQQIOQZA0307-48-62 09:15:004.23[facility] WjgbpunWDAQWWXJPU6992-30-73 09:15:00 9.6[facility] FxbreshEDCGYTCKJG4848-93-69 09:15:00 Test Item Value Reference Range Interpretation Comments MCH (test code = MCH) 30.7 pg 27.0-31.0 N [facility] ZflhkqhAVACPCWSVD2530-28-17 09:15:0091.1[facility] HermannHEMATOLOGY 2011-02-16 09:15:0014.6[facility] ChpduzpWKLEFXYUQL3041-16-20 09:15:0033.6[facility] ErwnxdoDNHKZASEUH5816-22-40 09:15:68482.0[facility] HrdpulkLXWRXGHMWG8980-30-51 09:15:009.8[facility] HermannBACTERIAL - YBHYHUIE4299-31-47 16:30:00Negative (02/15/2011 11:30:00) ??[facility] HermannMICRO MISC - BOJWVAHK6616-76-63 16:30:00 Negative 1(02/15/2011 11:30:00) ??[facility] TujufciLJELKYNQO0765-75-63 11:10:00 0.9[facility] MjoyqxlLINZGRQTG1632-44-93 11:10:0032.0[facility] HermannCHEMISTRY 2011-02-15 11:10:000.15[facility] ZmfsoosKWGEUJWTFH7426-98-09 11:10:000.0[facility] OsocgqjTQEOKAAJYW7190-98-16 11:10:000.0[facility] LwlnzkyNTRNIRTOVG2874-61-12 11:10:000.8[facility] KcidxupTQUMRTUMFJ2551-77-97 11:10:002.0[facility] [place] VDQFLSIDUD3402-55-87 11:10:007.1[facility] DglmvyeFXCEMZAONW5399-96-66 11:10:000.5 [facility] IbcxtajAKCFGCWXPC0243-13-87 11:10:000.3[facility]annHEMATOLOGY 2011-02-15 11:10:007.8[facility] GzoctvtQPBRGRKBFN6951-47-97 11:10:0020.3[facility] OyjmuwlADUKSJMZIM8627-91-59 11:10:0071.1[facility] SqvosunXOOEQZPZZK2208-81-39 11:10:0010.0[facility] EeldaurAFPMTPQZMO9923-83-92 11:10:0091.5[facility] [place] IDEAEYBVOJ0457-88-64 11:10:0038.9[facility] AtmujahHGYZTSEKWT3770-67-03 11:10:00 4.25[facility] ZhkhrlnKCHVVUAHWP0122-17-18 11:10:0012.9[facility]annHEMATOLOGY 2011-02-15 11:10:0033.2[facility] OffulyeTWFWGEPJRV5376-05-07 11:10:00 Test Item Value Reference Range Interpretation Comments MCH (test code = MCH) 30.4 pg 27.0-31.0 N [facility] FbtobvlLTSESOAKUP3806-69-70 11:10:0010.0[facility] HermannHEMATOLOGY 2011-02-15 11:10:0014.9[facility] OaryiceFMWQJMRSZI9359-19-18 11:10:39993.0 [facility] HermannVIRAL - CXILKWEL1617-14-12 05:20:00Negative 5(02/15/2011 00:20:00) ??[facility] HermannVIRAL - WSLOERKS2065-16-54 05:20:00Negative (02/15/2011 00:20:00) ??[facility] UcbwxhoFLEXWFDRW3412-53-40 05:07:0037.0[facility] YfipmioJDXGPHLSH2432-04-12 05:07:000.15[facility] RaqoxvhJFJJUKFXN1486-10-27 00:24:000.14[facility] LlkgcziVMYLGBSOH5665-93-02 00:24:0048.0[facility] EOKGEJIOA0885-39-19 00:24:005.0[facility] RkncohiQNHXLJSAG2136-90-07 00:24:0040.0 [facility] RwktmrcIFBRYRSEW9281-18-15 00:24:000.5[facility] HermannCHEMISTRY 2011-02-15 00:24:003.3[facility] GjzismmUDBBBQPNN6765-38-98 00:24:0016.0[facility] KfbkegmFMRJHNNZF2892-42-00 00:24:008.4[facility] InmssmsQIAITPYPQ8999-96-99 00:24:007.5[facility] EmdpwcmDIKZJAEAU0449-88-48 00:24:0027.0[facility] XMAWOPCBB5773-20-25 00:24:84471.0[facility] BwtrpxpRBUYFZZYD6362-21-45 00:24:004.2 [facility] JypxmicBNQXRUFVZ1362-51-57 00:24:00 Test Item Value Reference Range Interpretation Comments A/G Ratio (test code = A/G Ratio) 0.8 1 0.7-1.6 N [facility] YawazfxSLPCYMANB9434-98-53 00:24:0013.9[facility] HermannCHEMISTRY 2011-02-15 00:24:00 Test Item Value Reference Range Interpretation Comments B/C Ratio (test code = B/C Ratio) 15.0 1 6-25 N [facility] OtezgzaHDVGBZSFK4228-27-97 00:24:003.9[facility] HermannCHEMISTRY 2011-02-15 00:24:79333.0[facility] DgvebvoLKKLQDXIQ4668-22-98 00:24:001.4[facility] EizsbpdVTEVXKCRA7990-22-62 00:24:0021.0[facility] QufgihiXCBRHDMMR8344-06-44 00:24:87845.0[facility] PdnrnctMAITBFWNE6884-05-72 23:50:16744.0[facility] XDKAJFSQAO0179-17-87 23:50:00 Test Item Value Reference Range Interpretation Comments PT (test code = PT) 14.2 s 12.0-14.7 N [facility] ObkzndyHIVDRGGMDM4409-15-59 23:50:00 Test Item Value Reference Range Interpretation Comments PTT (test code = PTT) 22.7 s 22.9-35.8 L [facility] HospitalKwpjuisCGACTUCLSN9345-53-30 23:50:00 Test Item Value Reference Range Interpretation Comments INR (test code = INR) 1.1 1 0.85-1.17 N [facility] HospitalDazrmyrVPFNZRFESE6253-94-96 23:50:000.58[facility]annHEMATOLOGY 2011-02-14 23:50:00Normal (02/14/2011 18:50:00) ??[facility]annHEMATOLOGY 2011-02-14 23:50:00Normal (02/14/2011 18:50:00) ??[facility]
[2020-06-12] MEDS ORDERED: MIDAZOLAM HCL 2 MG/2 ML INJ ONE (11:32)
[2020-06-12] MEDS ORDERED: NA CHLORIDE 0.9% 0 ML ONE (11:33)
[2020-06-12] MEDS ORDERED: FENTANYL CITR 100 MCG/2 ML ONE (11:33)
[2020-06-12] MEDS ORDERED: ATROPINE SULF 1 MG/10 ML SYR IV ONE (11:33)
[2020-06-12] MEDS ORDERED: ACETYLCYST 20% 4 ML VIAL IH ONE (11:38)
[2020-06-12] MEDS ORDERED: HEPA 1000U/500MLS 1,000 UNIT/500 ML BAG IV ONE (11:47)
[2020-06-12] MEDS ORDERED: LIDOCAINE 1% 20 ML MDV ONE (11:47)
[2020-06-12] MEDS ORDERED: METOPROLOL TARTRATE 5 MG/5 ML INJ IV ONE (12:12)
[2020-06-12 12:25] LABS: Potassium 3.8 mmol/L (3.5-5.1)
[2020-06-12 12:34] VITALS: TEMP 98.1; O2SAT 100
[2020-06-12 14:27] VITALS: BP 116/57
--- NOTE | 2020-06-15 21:49 | OP ---
Date of Procedure: 06/12/2020 Surgeon: Pierce Bloom MD Home Assessment Nurse: Monika Cook. Procedure: Left heart catheterization with selective coronary arteriogram. Indication: Recent non-ST elevation myocardial infarction. Procedure In Detail: Mr. Suárez had come into the hospital approximately a week ago with non-ST eleva tion myocardial infarction, acute renal failure, creatinine of up to 2.6. He was asymptomatic after medical treatment and we decided to wait for his kidney function to improve before doing a heart cath eterization. This was a weekend. He decided to do this as an outpatient. His last creatinine is 1. 8. He was brought to the quality control lab technician as an outpatient on 06/12/2020, prepped and draped in routine ster ile fashion, given Versed and fentanyl for sedation. Using the Seldinger technique, we introduced a 6-Luxembourger sheath in the right common femoral artery successfully after 10 cc of xylocaine. 6-Luxembourger J udkins catheter were used to cannulate the left main and the right main respectively. He was right d ominant. He had only minimal plaquing in the LAD, circumflex, left main and the RCA. He has a long left main. There were no focal stenosis. The patient tolerated the procedure well. There were no c omplications. Blood Loss: 5 mL. Anesthesia: Total conscious sedation was 45 minutes. Final Diagnosis: Non-ST elevation myocardial infarction, may have been demand ischemia secondary to his acute renal failure. Minimal coronary artery disease. Plan: To continue medical therapy. Angiography in the right common femoral artery was normal. Marie o-Seal was used to close the case. Patient stayed in the hospital for 2 hours of bedrest and then go home and see me in the office in next 2 weeks. NB/MODL Voice ID: [id number] Report ID: [id number]
== END 2020-06-12 14:15 | disposition home or self-care (01) ==
LOC: CCL 10:07
DX: I21.4 Non-ST elevation (NSTEMI) myocardial infarction (principal); I25.10 Atherosclerotic heart disease of native coronary artery without angina pectoris; Z95.0 Presence of cardiac pacemaker; I11.0 Hypertensive heart disease with heart failure; I50.9 Heart failure, unspecified; I45.10 Unspecified right bundle-branch block; Z20.822 Contact with and (suspected) exposure to COVID-19; Z79.01 Long term (current) use of anticoagulants; E78.5 Hyperlipidemia, unspecified; Z86.73 Personal history of transient ischemic attack (TIA), and cerebral infarction without residual deficits; M10.9 Gout, unspecified; E11.40 Type 2 diabetes mellitus with diabetic neuropathy, unspecified; Z95.5 Presence of coronary angioplasty implant and graft
CPT/HCPCS: 80048; 36415 ×2; 85730; 93454; U0002; C1893; C1760; J2250; J3010; J7040; J1644; J0583

== ENCOUNTER 2020-06-17 11:45 | Emergency (ER) | payer OTHER ==
[2020-06-17 17:25] LABS: Urine Bacteria LOADED /HPF (NONE SEEN)
[2020-06-17 17:35] LABS: Urine Blood 2+ (NEG); Urine Glucose NEGATIVE (NEG); Urine Protein 1+ (NEG); Urine pH 6.5 (5.0-7.0)
--- NOTE | 2020-06-17 17:36 | ER ---
Nurse's Notes [facility] Name: Tomas Suárez Age: 84 yrs Sex: Male : 1935 Arrival Date: 06/17/2020 Time: 11:49 Bed 20 Private MD: Diagnosis: Urinary tract infection, site not specified Presentation: 06/17 12:09 Chief complaint: Patient states: had a a cardiac stent on , with access to the sv right groin. Reports that he tries to urinate and is hardly able to do anything but can urinate. Coronavirus screen: Client denies travel out of the [place] in the last 14 days. At this time, the client does not indicate any symptoms associated with coronavirus-19. The client reports previous COVID testing was negative. Ebola Screen: No symptoms or risks identified at this time. Risk Assessment: Do you want to hurt yourself or someone else? Patient reports no desire to harm self or others. Onset of symptoms was June 2020. 12:09 Method Of Arrival: Wheelchair sv 12:09 Acuity: CORNELIUS 3 sv 12:13 Initial Sepsis Screen: Does the patient meet any 2 criteria? No. Patient's initial sv sepsis screen is negative. Does the patient have a suspected source of infection? No. Patient's initial sepsis screen is negative. Triage Assessment: 12:13 General: Appears in no apparent distress. comfortable, Behavior is calm, cooperative, sv appropriate for age. Pain: Denies pain. Neuro: Level of Consciousness is awake, alert, obeys commands, Oriented to person, place, time, situation. Respiratory: Respiratory effort is even, unlabored. Historical: - Allergies: 12:12 Bactrim; sv 12:12 Demerol; sv 12:12 Plavix; sv 12:12 Sulfa (Sulfonamide Antibiotics); sv - PMHx: 12:12 High Cholesterol; Hyperlipidemia; Atrial Fib; CHF; borderline diabetic; Hypertension; sv kidney disease; CVA; Gout; arrythmias; neuropathy; asbestos; Pace maker; Myocardial infarction; - PSHx: 12:12 pacemaker; cardiac stents x3; back sx; neck sx; sv - Immunization history:: Adult Immunizations up to date. - Social history:: Smoking status: Patient denies any tobacco usage or history of. Screenin:08 Abuse screen: Denies threats or abuse. Denies injuries from another. Nutritional ph screening: No deficits noted. Tuberculosis screening: No symptoms or risk factors identified. Fall Risk None identified. Assessment: 16:40 General: Appears in no apparent distress. comfortable, well groomed, Behavior is calm, ph cooperative, appropriate for age. Pain: Denies pain. Neuro: Level of Consciousness is awake, alert, obeys commands, Oriented to person, place, time, situation. Cardiovascular: Capillary refill < 3 seconds in bilateral fingers Patient's skin is warm and dry. Respiratory: Airway is patent Respiratory effort is even, unlabored, Respiratory pattern is regular, symmetrical. GI: Abdomen is non-distended. : Reports difficulty urinating Denies burning with urination. Derm: Skin is intact, is healthy with good turgor, Skin is pink, warm \T\ dry. Musculoskeletal: Circulation, motion, and sensation intact. Range of motion: intact in all extremities. Vital Signs: 12:13 BP 116 / 59; Pulse 61; Resp 16; Temp 97.2(TE); Pulse Ox 99% on R/A; Weight 131.09 kg; sv Height 6 ft. 4 in. (193.04 cm); Pain 0/10; 16:35 BP 118 / 70; Pulse 64; Resp 18; Temp 97.9; Pulse Ox 99% on R/A; ph 12:13 Body Mass Index 35.18 (131.09 kg, 193.04 cm) sv ED Course: 11:49 Patient arrived in ED. mr 12:11 Triage completed. sv 12:12 Arm band placed on. sv 15:58 Andrea Joy NP is PHCP. pm1 15:58 Caio Franks MD is Attending Physician. pm1 16:07 Rachel Lindsay, ROMY is Primary Nurse. ph 16:08 Patient has correct armband on for positive identification. Bed in low position. Call ph light in reach. Side rails up X 1. Pulse ox on. NIBP on. Door closed. Noise minimized. Warm blanket given. 16:41 No provider procedures requiring assistance completed. Urine collected: clean catch ph specimen, cloudy, vaishali blood, Amount Voided: 200mL Bladder scan completed. 0 mL present in bladder. 17:06 Urine Dipstick--Ancillary (enter results) Sent. 17:06 Urine Microscopic Only Sent. 17:35 Patient did not have IV access during this emergency room visit. ph Administered Medications: No medications were administered Outcome: 16:46 Discharge ordered by MD. pm1 17:35 Discharged to home via wheelchair, with family. 17:35 Condition: good 17:35 Discharge instructions given to patient, Instructed on discharge instructions, follow up and referral plans. medication usage, Demonstrated understanding of instructions, follow-up care, medications, Prescriptions given X 2. 17:36 Discharge ordered by MD. pm1 18:15 Patient left the ED. ph Addendum: 06/21/2020 10:25 Addendum: Culture Results: Positive urine culture. Bacteria is resistant to, has a a5 intermediate sensitivity, or is not tested against prescribed antibiotics. Report given to [facility] for further evaluation and then to police liaison for follow up with patient. Phone call Attempt #1 Spoke to pt [id number], pt states feeling better, pt reports he followed-up with PCP and is still taking antibiotics. Per RADHA Wong instruct pt to f/u with PCP (bacteria sensitive to cephalosporins). Signatures: Mehnaz Page RN RN Jay, Virgen mr Leon, Coco, RN RN [id number] Maria L Whitten RN RN Rachel Lindsay RN RN Andrea Joy, RADHA [employer]POSITE [employer]CH[employer]IC pm1 Corrections: (The following items were deleted from the chart) 0208 12:14 12:09 Coronavirus screen: Client denies travel out of the [place] in the last 14 days. At this time, the client does not indicate any symptoms associated with coronavirus-19. 12:15 12:13 Pulse 61bpm; Resp 16bpm; Pulse Ox 99%; Temp 97.2F; 131.09 kg; Height 6 ft. 4 in.; BMI: 35.1; Pain 0/10; sv
--- NOTE | 2020-06-17 17:36 | EDPHYS ---
Physician Documentation [facility] Name: Tomas Suárez Age: 84 yrs Sex: Male : 1935 Arrival Date: 06/17/2020 Time: 11:49 Bed 20 Private MD: ED Physician Caio Franks HPI: 06/17 16:44 This 84 yrs old Black Male presents to ER via Wheelchair with complaints of Urinary pm1 Retention. 16:44 The patient presents with urinary symptoms, retention. Onset: The symptoms/episode pm1 began/occurred 3 day(s) ago. Associated signs and symptoms: Pertinent negatives: abdominal pain, constipation, diarrhea, fever, nausea, vomiting. Severity of symptoms: in the emergency department the symptoms have improved, Patient is able to urinate and empty his bladder. The patient has not experienced similar symptoms in the past. Historical: - Allergies: 12:12 Bactrim; sv 12:12 Demerol; sv 12:12 Plavix; sv 12:12 Sulfa (Sulfonamide Antibiotics); sv - PMHx: 12:12 High Cholesterol; Hyperlipidemia; Atrial Fib; CHF; borderline diabetic; Hypertension; sv kidney disease; CVA; Gout; arrythmias; neuropathy; asbestos; Pace maker; Myocardial infarction; - PSHx: 12:12 pacemaker; cardiac stents x3; back sx; neck sx; sv - Immunization history:: Adult Immunizations up to date. - Social history:: Smoking status: Patient denies any tobacco usage or history of. ROS: 16:44 Constitutional: Negative for fever, chills, and weight loss, Cardiovascular: Negative pm1 for chest pain, palpitations, and edema, Respiratory: Negative for shortness of breath, cough, wheezing, and pleuritic chest pain, Abdomen/GI: Negative for abdominal pain, nausea, vomiting, diarrhea, and constipation, Back: Negative for injury and pain. 16:44 MS/Extremity: Negative for injury and deformity, Skin: Negative for injury, rash, and discoloration, Neuro: Negative for headache, weakness, numbness, tingling, and seizure. 16:44 : Positive for difficulty urinating, Negative for urinary frequency, burning with urination. Exam: 16:44 Constitutional: This is a well developed, well nourished patient who is awake, alert, pm1 and in no acute distress. Head/Face: Normocephalic, atraumatic. 16:44 Back: No spinal tenderness. No costovertebral tenderness. Full range of motion. Skin: Warm, dry with normal turgor. Normal color with no rashes, no lesions, and no evidence of cellulitis. Right groin, catheter access point, without any signs of tenderness, lesions, or evidence of cellulitis or abscess MS/ Extremity: Pulses equal, no cyanosis. Neurovascular intact. Full, normal range of motion. 16:44 Cardiovascular: Exam negative for acute changes, Rate: normal, Rhythm: regular, Pulses: no pulse deficits are appreciated. 16:44 Respiratory: Exam negative for acute changes, respiratory distress, shortness of breath. 16:44 Abdomen/GI: Exam negative for acute changes, Inspection: abdomen appears normal, Palpation: abdomen is soft and non-tender, in all quadrants. 16:44 Neuro: Exam negative for acute changes, Orientation: is normal, Mentation: is normal, Motor: is normal, Sensation: is normal, no obvious gross deficits. Vital Signs: 12:13 BP 116 / 59; Pulse 61; Resp 16; Temp 97.2(TE); Pulse Ox 99% on R/A; Weight 131.09 kg; sv Height 6 ft. 4 in. (193.04 cm); Pain 0/10; 16:35 BP 118 / 70; Pulse 64; Resp 18; Temp 97.9; Pulse Ox 99% on R/A; ph 12:13 Body Mass Index 35.18 (131.09 kg, 193.04 cm) sv MDM: 16:06 Patient medically screened. pm1 17:31 Data reviewed: vital signs. Counseling: I had a detailed discussion with the patient pm1 and/or guardian regarding: the historical points, exam findings, and any diagnostic results supporting the discharge/admit diagnosis, lab results, the need for outpatient follow up, to return to the emergency department if symptoms worsen or persist or if there are any questions or concerns that arise at home. 17:31 ED course: Patient possibly had some urinary retention present due to anesthesia pm1 related to cardiac cath recently. Patient was able to fully empty his bladder in the ER, 200 mL, without any difficulty and verified with post void bladder scan. Some possible urinary retention is likely the cause for UTI. Patient is afraid to strain with urinating and bowel movement. No constipation but he would like his stool softer to allow less straining. He is using over the counter stool softener but not giving the results he desires, therefore he would like a prescription. 06/17 16:12 Order name: Urine Microscopic Only pm1 06/17 16:12 Order name: Urine Microscopic Only; Complete Time: 17:31 EDMS 06/17 16:12 Order name: Urine Dipstick-Ancillary (obtain specimen); Complete Time: 16:40 pm1 06/17 16:43 Order name: Urine Dipstick--Ancillary (enter results) bd 06/17 16:44 Order name: Urine Dipstick-Ancillary; Complete Time: 17:45 EDMS 06/17 17:26 Order name: Urine Culture EDSC 06/17 16:12 Order name: Bladder Scanner; Complete Time: 16:40 pm1 Administered Medications: No medications were administered Disposition: 18:17 Co-signature as Attending Physician, Caio Franks MD. rn Disposition: 06/17/20 17:36 Discharged to Home. Impression: Urinary tract infection, site not specified. - Condition is Stable. - Discharge Instructions: Urinary Tract Infection, Adult. - Prescriptions for Miralax 17 gram/dose Oral - take 1 packet by ORAL route once daily As needed dilute powder in 8 ounces of water or juice; 7 packet. cefpodoxime 200 mg Oral Tablet - take 1 tablet by ORAL route every 12 hours for 10 days with food; 20 tablet. - Medication Reconciliation Form, Thank You Letter, Antibiotic Education, Prescription Opioid Use form. - Follow up: Emergency Department; When: As needed; Reason: Worsening of condition. Follow up: Private Physician; When: 2 - 3 days; Reason: Recheck today's complaints, Continuance of care, Re-evaluation by your physician. - Problem is new. - Symptoms have improved. Signatures: Dispatcher [employer] [facility] Mehnaz Page RN RN sv Nieto, Roman, MD MD rn Hall, Patricia, RN RN ph Marinas, Patrick, RADHA MESMERIST pm1 Corrections: (The following items were deleted from the chart) 16:46 16:46 06/17/2020 16:46 Discharged to Home. Impression: Person with feared health pm1 complaint in whom no diagnosis is made. Condition is Stable. Forms are Medication Reconciliation Form, Thank You Letter, Antibiotic Education, Prescription Opioid Use. Follow up: Emergency Department; When: As needed; Reason: Worsening of condition. Follow up: Private Physician; When: 2 - 3 days; Reason: Recheck today's complaints, Continuance of care, Re-evaluation by your physician. Problem is new. Symptoms have improved. pm1 18:15 17:36 06/17/2020 17:36 Discharged to Home. Impression: Urinary tract infection, site ph not specified. Condition is Stable. Forms are Medication Reconciliation Form, Thank You Letter, Antibiotic Education, Prescription Opioid Use. Follow up: Emergency Department; When: As needed; Reason: Worsening of condition. Follow up: Private Physician; When: 2 - 3 days; Reason: Recheck today's complaints, Continuance of care, Re-evaluation by your physician. Problem is new. Symptoms have improved. pm1
[2020-06-17 18:42] VITALS: BP 116/59; TEMP 97.2; O2SAT 99
--- OUTSIDE RECORDS SUMMARY | 2020-06-18 22:00 | XMS REPORT | Clinical Summary ---
:1935 Author Organization [facility] Address [address] [place] [address] Care Team Providers Name Role Phone Celena [...] (congestive heart failure) (HCC) Hypertension Stroke (HCC) DC (myocardial infarction) (HCC) Social History Tobacco Use [...] INFLUENZA VACCINE 12/09/2019 Implants Implanted Type Area Biometrics Technician Device Shelf Model / Identifier Expiration Serial / Date Lot Catheter Optical Instruments Supervisor 8fr 75x4cm 16mm [place] - [id number] Surgical N/A: [facility] 07/07/2019 [id number] / Implanted: 04/22/2017 at [facility] (Quantity not on file) Im plants; N/A VASCULAR / Expanders; [id number] Extenders; Surgical Wires Catheter Optical Instruments Supervisor 6.5fr 75x4cm 14mm [place] - [id number] Surgical N/A: [facility] 06/06/2019 [id number] / Implanted: 04/22/2017 at [facility] (Quantity not on file) Im plants; N/A VASCULAR / Expanders; [id number] Extenders; Surgical Wires Stent Endprths Trchobrncl [place] [id number] W/ Cath 75cm - Log [id number] Surgical N/A: [facility] 02/02/2019 [id number] / Implanted: 04/22/2017 at [facility] (Quantity not on file) St ents N/A INTERVENTION / VASCULAR RONALD [id number] Stent Endprths Trchobrncl [place] [id number] W/ Cath 75cm - Log [id number] Surgical N/A: [facility] 02/02/2019 [id number] / Implanted: 04/22/2017 at [facility] (Quantity not on file) St ents N/A INTERVENTION / VASCULAR RONALD [id number] Stent Endprths Trchobrncl [place] [id number] Metal - [id number] Surg ical N/A: [facility] 01/27/2019 [id number] / Implanted: 04/22/2017 at [facility] (Quantity not on file) St ents N/A INTERVENTION / VASCULAR RONALD [id number] Stent Endprths Trchobrncl [place] [id number] Metal - [id number] Surg ical N/A: [facility] 12/29/2018 [id number] / Implanted: 04/22/2017 at [facility] (Quantity not on file) St ents N/A INTERVENTION / VASCULAR RONALD [id number] Stent Endprths Trchobrncl Elianstnt [id number] Metal - [id number] Surg ical N/A: [place] 03/02/2019 [id number] / Implanted: 04/22/2017 at 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
--- OUTSIDE RECORDS SUMMARY | 2020-06-18 22:22 | XMS REPORT | Continuity of Care Document ---
:1935 Author Organization [employer] Care Team Providers Name Role Phone [employer] Unavailable Un available Problems Problem Status Onset Classification Date Comments Sourc e Date Reported RESPIRATORY Active FAILURE, CHF [address] [facility] [address] ACUTE ON CHRONIC Active CHF 019 [facility] J44.9 - CHRONIC Active O PID OBSTRUCTIVE [address] [place] PULMONARY R0 Sick sinus syndrome 10/16/2018 018 [facility] ATRIAL Active FIBRILLATION, CAD 018 [place] ALTERED MENTAL Active STATUS 017 [facility] SENT BY Active 017 [facility] ACUTE DEEP VEIN Active THROMBOSIS OF LEFT 017 [place] LOWER CHEST PAIN AFIB Active 016 [facility] CHEST TIGHTNESS Active [place] 016 [place] Discharge 05/31/2015 [place] Diagnosis: Chronic 016 [place] and renal insufficiency Discharge 05/31/2015 [place] Diagnosis: Acute 016 [place] urinary tract infection UNABLE TO URINATE Active [place]16 [place] CHEST PAIN Active 015 [facility], M [facility] [place] Discharge 02/05/2015 Diagnosis: 015 [facility] Accidental fall Discharge 02/05/2015 Diagnosis: 015 [facility] Contusion of hip FLANK PAIN Active 015 [facility] 722.93 - DISC DIS Active [place] NEC/NO 724.02 - 015 [place] "SPIN SPITTING UP BLOOD, Active M H [place] COUGHING UP MUCUS [address] [place] Discharge 07/08/2014 [place] Diagnosis: 015 [place] Hemoptysis 785.6 - ENLARGEMENT Active OPID LYM 014 [facility] MEDISTINAL Active LYMPADENOPATHY 014 [facility] HEMOPTYSIS Active 014 [facility] ACS, CHEST PAIN Active 014 [place] MULTIFOCAL Active PNEUMONIA, 014 [facility] HEMOPTYSIS, ACS, C A-FIB, TACHYCARDIA Active [facility] 014 [facility] MEDIASTINAL Active [place] LYMPHADENOPATHY 013 [place] 486 - "PNEUMONIA, Active OPID ORGA" 013 [place] ACUTE IL, NSTEMI Active 012 [facility] LUMBAR SPINAL Active Dariel as STENOSIS 012 [facility] [place] LUMBAR STENOSIS, Active [facility] LUMBAR [address] [place] [address] RADICULOPATHY Center GI BLEED Active [place]12 [place] CHEST PAIN, Active THROMBOCYTOPENIA 012 [place] BIJAL Active [place] 012 [place] Cardiac Active Problem 12/03/2018 [facility] catheterization 011 [place] (procedure) [facility], H [place] Cardiac Active Problem 07/23/2012 [place] catheterization 011 [facility], OPID [place],[facility], [facility] [place] ATRIAL FIB, Active UNSTABLE ANGINA 011 [place] TEAR MEDIAL Active [place] MENISCUS 011 [place] BLOOD IN STOOL Active [place] 011 [place] Illness, 12/03/2018 unspecified [place] Atrial fibrillation Active Problem 12/03/2018 [facility] (disorder) [place],[facility], M [facility] [place] Asbestosis Active Problem 12/03/2018 [facility] (disorder) [place],[facility], [facility] [place] Congestive heart Active Problem 12/03/2018 OPID failure (disorder) [place],[facility], M [facility] [place] Cerebrovascular Resolved Problem 12/03/2018 [facility] accident (disorder) [place],[facility], [facility] [place] Diabetes mellitus Resolved Problem 12/03/2018 pt states he is not a diabetic OPID (disorder) PATIENT STATES HE I S NOT A DIABETIC [place] border line [facility], M [facility] [place] Dizziness (finding) Active Problem 12/03/2018 OPID [place],[facility], [facility] [place] Deep venous Active Problem 12/03/2018 OPID thrombosis of lower [place] extremity [facility], (disorder) [facility] ,M [facility] [place] Gout (disorder) Active Problem 12/03/2018 OPID [place],[facility], [facility] [place] Hypertensive Active Problem 12/03/2018 OPI D disorder, systemic [place] arterial (disorder) [place],[facility], [facility] [place] Myocardial Active Problem 12/03/2018 OPID infarction [place] (disorder) [place],[facility], [facility] [place] 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 [place] (disorder) [place],[facility], [facility] [place] Morbid obesity Active Problem 12/03/2018 O PID (disorder) [place],[facility] Pain (finding) Active Problem 12/03/2018 O PID [place],[facility], [facility] [place] Pneumonia Resolved Problem 12/03/2018 [facility] (disorder) [place],[facility], [facility] [place] Sleep apnea Active Problem 12/03/2018 OPID (finding) [place],[facility], [facility] [place] 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 Hypertensive heart 10/16/2018 and chronic kidney [place] disease with heart failure and stage 1 through stage 4 chronic kidney disease, or unspecified chronic kidney disease Paroxysmal atrial 10/16/2018 M H fibrillation [facility] st Encounter for 10/16/2018 immunization [facility] Metabolic syndrome 10/16/2018 [facility] Morbid (severe) 10/16/2018 obesity due to [facility] excess calories 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 [place] 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 Chronic kidney 10/16/2018 disease, stage 3 [place] (moderate) Hyperlipidemia, 10/16/2018 unspecified [place] Bronchitis, not 10/16/2018 specified as acute [place] or chronic Unspecified 10/16/2018 osteoarthritis, [place] unspecified site Gout, unspecified 10/16/2018 M H [facility] Presence of cardiac 10/16/2018 pacemaker [facility] Personal history of 10/16/2018 nicotine dependence [facility] 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 Heart failure, 10/16/2018 unspecified [place] Coronary 10/16/2018 angioplasty status [place] Personal history of 10/16/2018 transient ischemic [place] attack (TIA), and cerebral infarction without residual deficits Anemia, unspecified 10/16/2018 [facility] Sleep apnea, 10/16/2018 unspecified [place] Hypotension, 10/16/2018 unspecified [place] Personal history of 10/16/[address] thrombosis and embolism 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 [place] 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 [place] Chest pain Inactive Problem 07/23/2012 [facility], OPID [place],[facility], M [facility] [place] Dizziness Active Problem 08/30/2011 [facility], [facility] [place] Nausea Inactive Problem 07/23/2012 [facility], OPID [place],[facility], [place] AF - Atrial Active Problem 07/23/2012 [place] fibrillation [facility], OPID [place],[facility], [place] Cough Inactive Problem 07/23/2012 [facility], OPID [place],[facility], [place] Atrial fibrillation Active Problem 07/23/2012 [place] CHF - Congestive Resolved Problem 07/23/2012 [place] heart failure [place] Diabetes mellitus Active Problem 07/23/2012 [place] Dizziness Active Problem 07/23/2012 [facility], OPID [place],[facility], [place] DVT - Deep vein Resolved Problem 07/23/2012 OPID thrombosis of lower [place] limb [place], [place] Fusion Active Problem 07/23/2012 [facility], OPID [place],[facility], [place] HTN - Hypertension Active Problem 07/23/2012 OPID [place] Pain Active Problem 07/23/2012 [facility], OPID [place],[facility], M [facility] [place] Sleep apnea Active Problem 07/23/2012 [place] Fused structure Active Problem 03/14/2016 ([facility] [place],M abnormality) H [place] CHEST PAIN NOS Active [place] ATRIAL FIBRILLATION Active [facility] ANGINA DECUBITUS Active [facility] SLEEP APNEA NOS Active [place] GASTROINTEST HEMORR Active [place] LUMB/LUMBOSAC DISC Active [facility] SPIN STEN,LUMBR WO Active [facility] LUMBOSACRAL Active [facility] SPONDYLOSIS [facility] AMI NOS-INITIAL Active EPISODE [place] PNEUMONIA, ORGANISM Active NOS [facility] ENLARGEMENT LYMPH Active MH NODES [facility] CHEST PAIN, Active MH UNSPECIFIED ILLNESS, Active MH UNSPECIFIED ACUTE EMBOLISM AND Active M H THOMBOS UNSP DEEP [place] VEI SYNCOPE AND Active MH COLLAPSE [facility] ANEMIA, UNSPECIFIED Active MH [facility] UNSPECIFIED ATRIAL Active M H FIBRILLATION [facility] HEART FAILURE, Active MH UNSPECIFIED BENIGN PROSTATIC Active MH HYPERPLASIA WITH [place] LOWER RECURRENT AND PERST Active MH HEMATURIA W UNSP [place] MOR Medications Medication Details Route Status Patient Ordering Order Source Instructions Provider Date carvedilol 3.125 3.125 mg = 1 Active mg oral tablet tab, PO, 2018 [facility] Q12H, 0 Refill(s) atorvastatin Notes: (Same Inactive as: Lipitor) 2019 [facility] Allopurinol Notes: (Same Inactive as: 2018 [facility] Zyloprim) gabapentin 100 Notes: (Same No Longer MG Oral Capsule as: Active 2018 [facility] Neurontin) Eliquis Notes: Same No Longer as: Eliquis Active 2018 [facility] Amiodarone Notes: (Same No Longer as: Active 2018 [facility] Cordarone) Saline Flush Notes: Same No Longer 0.9% as: BD Active 2018 [facility] Posiflush Sterile Furosemide Notes: (Same No Longer as: Lasix) Active 2018 [facility] carvedilol Notes: Give No Longer with food. Active 2018 [facility] (Same As: Coreg) Aspirin 81 MG [...] No Longer 0.9% as: BD Active 2018 [facility] Posiflush Sterile apixaban 2.5 MG 2.5 mg, PO, Active Oral Tablet BID, 0 2018 [facility] [Eliquis] Refill(s) atorvastatin 40 40 mg = 1 Active mg oral tablet tab, PO, 2018 [facility] Daily, 0 Refill(s) losartan 100 mg 100 mg = 1 No Longer oral tablet tab, PO, Active 2018 [facility] Daily, 0 Refill(s) Acetaminophen 1 tab, PO, Active 325 MG / Q6H, PRN 2018 [facility] Hydrocodone Pain, 0 Bitartrate 10 MG Refill(s) Oral Tablet apixaban 2.5 MG 2.5 mg, PO, Active Oral Tablet Q12H, # 60 2017 [facility] [Eliquis] tab, 0 Refill(s), called to pharmacy AMIODarone 200 200 mg = 1 Active mg oral tablet tab, PO, 2017 [facility] t BID, 0 Refill(s) metoprolol 25 mg = 1 Active tartrate 25 mg tab, PO, 2017 [facility] t oral tablet Q12H, 0 Refill(s) Amiodarone Notes: (Same No Longer as: Active 2017 [facility] Cordarone) Fentanyl 100 Inactive microgram, 2017 [facility] Route: IV, ONCE, Dosing Weight 137.727, kg, Start date: 03/28/18 14:12:00 TREE TRIMMER, Stop date: 03/28/18 14:12:00 TREE TRIMMER Midazolam 2 mg, Route: Inactive IV, ONCE, 2017 [facility] Dosing Weight 137.727, kg, Start date: 03/28/18 14:12:00 TREE TRIMMER, Stop date: 03/28/18 14:12:00 TREE TRIMMER metoprolol Notes: (Same No Longer tartrate as: Active 2017 [facility] Lopressor) Warfarin Notes: Nurse No Longer to ensure Active 2017 [facility] documentatio n of patient education per anticoagulat ion policy. Avoid large intake of vitamin-K containing foods diet. (Same As: Coumadin) WASTE: F/P - P Waste Black; E - P Waste [place] metoprolol Notes: (Same Inactive tartrate as: 2017 [facility] Lopressor) Furosemide 40 MG Notes: (Same Inactive H Oral Tablet as: Lasix) 2017 [facility] May cause GI upset. Give with food or milk. Amiodarone Notes: (Same No Longer as: Active 2017 [facility] Cordarone) Warfarin Notes: Nurse Inactive to ensure 2017 [facility] documentatio n of patient education per anticoagulat ion policy. Avoid large intake of vitamin-K containing foods diet. (Same As: Coumadin) WASTE: F/P - P Waste Black; E - P Waste Black Insulin Lispro Notes: (Same No Longer as: Humalog Active 2017 [facility] ) Roll in palms of hands gently; Do not shake `vigorously. "Single Patient Use Only " WASTE: F/P - Black; E - Municipal Trash Bin Stable for 28 days at room temperature. Expires in days from __Date Glucagon 1 mg, Route: No Longer IM, Drug Active 2017 [facility] form: PDR/INJ, PRN, Dosing Weight 137.727, kg, PRN Blood Glucose Results, Start date: 03/26/18 12:50:00 TREE TRIMMER, Duration: 30 day, Stop date: 04/25/18 12:49:00 TREE TRIMMER Dextrose 50% 12.5 gm, 25 No Longer Syringe mL, Route: Active 2017 [facility] IVP, Drug Form: INJ, Dosing Weight 137.727, kg, PRN, PRN Blood Glucose Results, Start date: 03/26/18 12:50:00 TREE TRIMMER, Duration: 30 day, Stop date: 04/25/18 12:49:00 TREE TRIMMER Senokot Notes: (Same No Longer as: Senokot) Active 2017 [facility] docusate sodium Notes: (Same No Longer H 100 mg oral as: Colace) [facility] (Do Not Crush) Allopurinol Notes: (Same No Longer as: Active 2017 [facility] Zyloprim) Amoxicillin / Notes: With Inactive Clavulanate food. (Same 2017 [facility] t as: Augmentin 875) Prednisone Route: PO, Inactive Daily, 2017 [facility] Dosing Weight 137.727, kg, Start date: 03/26/18 9:00:00 TREE TRIMMER, Duration: 30 day, Stop date: 04/24/18 9:00:00 TREE TRIMMER Losartan Notes: (Same No Longer as: Cozaar) Active 2017 [facility] Aspirin 81 MG Notes: Do No Longer Enteric Coated not crush or Active 2017 [place] Tablet chew. (Same As: Ecotrin) Lovenox Notes: (Same No Longer as: Lovenox) Active 2017 [facility] atorvastatin Notes: (Same No Longer as: Lipitor) Active 2017 [facility] DuoNeb Notes: (Same No Longer inhalation as: Duoneb) Active 2017 [facility] solution Amiodarone Notes: (Same No Longer as: Active 2017 [facility] Cordarone) gabapentin 100 Notes: (Same No Longer MG Oral Capsule as: Active [facility] Neurontin) SENOKOT-S 1 tab, Inactive Route: PO, 2017 [facility] Dosing Weight 137.727, kg, BID, Start date: 03/25/18 17:00:00 TREE TRIMMER, Duration: 30 day, Stop date: 04/24/18 9:00:00 TREE TRIMMER carvedilol Notes: Give No Longer with food. Active 2017 [facility] (Same As: Coreg) 200 ACTUAT 2 puff, Inactive Albuterol 0.09 Route: 2017 [facility] MG/ACTUAT / INHALER, Ipratropium Drug Form: [place] 0.018 AERO/A, MG/ACTUAT Dosing Metered Dose Weight Inhaler 137.727, kg, [Combivent] BID, PRN Wheezing, Start date: 03/25/18 16:51:00 TREE TRIMMER, Duration: 30 day, Stop date: 04/24/18 16:50:00 TREE TRIMMER gabapentin 100 200 mg = 2 Active MG Oral Capsule cap, PO, 2017 st BID, 0 Refill(s) Warfarin See No Longer Instructions Active 2017 [facility] , 1 mg PO EVERY OTHER DAY, 0 Refill(s) Augmentin 875 mg, PO, No Longer Daily, # 20 Active 2017 [facility] tab, 0 Refill(s) carvedilol 25 mg, PO, Active BID, 0 2017 [facility] Refill(s) Losartan 100 mg, PO, No Longer Daily, 0 Active 2017 [facility] Refill(s) warfarin 2.5 mg 2.5 mg = 1 No Longer oral tablet tab, PO, Active 2017 [facility] Daily, 0 Refill(s) Prednisone See No Longer Instructions Active 2017 [facility] , 4 TABS DAILY FOR 4 DAYS SINCE WEDNESDAY,THEN 3 TABS DAILY FOR 4 DAYS,2 TABS DAILY FOR 4 DAYS,THEN 1 TAB DAILY FOR 4 DAYS, 0 Refill(s) Aspirin 81 MG 81 mg = 1 Active Enteric Coated tab, PO, 2018 [place] Tablet Daily, # 90 tab, 3 Refill(s) Losartan Notes: (Same No Longer as: Cozaar) Active 2016 [facility] Allopurinol Notes: (Same No Longer as: Active 2016 [facility] Zyloprim) atorvastatin Notes: (Same No Longer as: Lipitor) Active 2016 [facility] tamsulosin Notes: (Same No Longer As: Flomax) Active 2016 [facility] "Do Not Crush" Acetaminophen Notes: Do No Longer 300 MG / Codeine not exceed Active 2016 [place] Phosphate 30 MG 4gm/day of Oral Tablet acetaminophe [Tylenol with n. (Same Codeine #3] as: Tylenol with Codeine # 3) Furosemide Notes: (Same No Longer as: Lasix) Active 2016 [facility] May cause GI upset. Give with food or milk. SENOKOT-S 1 tab, Inactive Route: PO, 2016 [facility] Dosing Weight 145.909, kg, BID, Start date: 04/08/17 17:00:00 TREE TRIMMER, Duration: 30 day, Stop date: 05/08/17 9:00:00 TREE TRIMMER carvedilol Notes: Give No Longer with food. Active 2016 [facility] (Same As: Coreg) Senokot Notes: (Same No Longer as: Senokot) Active 2016 [facility] 200 ACTUAT Notes: Same No Longer Albuterol 0.09 as: Active 2016 [facility] MG/ACTUAT / Combivent Ipratropium Respimat [place] 0.018 WASTE: MG/ACTUAT Aerosol - Metered Dose Return to [facility] Pharm[facility] [Combivent] Insulin Lispro Notes: Roll No Longer in palms of 2016 [facility] hands gently; Do not shake `vigorously. (Same as: Humalog ) "Single Patient Use Only " WASTE: F/P - Black; E - Municipal Trash Bin Stable for 28 days at room temperature. Expires in days from __Date Glucagon 1 mg, Route: No Longer IM, Drug Active 2016 [facility] form: PDR/INJ, PRN, Dosing Weight 145.909, kg, PRN Blood Glucose Results, Start date: 04/08/17 16:41:00 TREE TRIMMER, Duration: 30 day, Stop date: 05/08/17 16:40:00 TREE TRIMMER Dextrose 50% 25 gm, 50 No Longer Syringe mL, Route: Active 2016 [facility] IVP, Drug Form: INJ, Dosing Weight 145.909, kg, PRN, PRN Blood Glucose Results, Start date: 04/08/17 16:41:00 TREE TRIMMER, Duration: 30 day, Stop date: 05/08/17 16:40:00 TREE TRIMMER carvedilol 25 mg 25 mg = 1 No Longer oral tablet tab, PO, 2016 [facility] BID, # 180 tab, 0 Refill(s) [...] (Same No Longer as: Norvasc) Active 2016 [facility] Potassium Notes: (Same Inactive Chloride as: K-Dur 2017 [place] 20) "Do Not Crush" With food and full glass of water tramadol Notes: Not Inactive hydrochloride 50 to exceed 2016 [facility] MG Oral Tablet 400mg/day. (Same As: Ultram) Tylenol Notes: Do No Longer not exceed 4 Active 2016 [facility] gm/day. (Same as: Tylenol) Protonix Notes: No Longer Tablet Active 2016 [facility] should not be chewed or crushed. (Same as: Protonix) Enoxaparin Notes: Nurse No Longer to ensure Active 2016 [facility] documentatio n of patient education per anticoagulat ion policy. (Same as: Lovenox) Coumadin Notes: Nurse Inactive to ensure 2016 [facility] documentatio n of patient education per anticoagulat ion policy. Avoid large intake of vitamin-K containing foods diet. (Same As: Coumadin) WASTE: F/P - P Waste Black; E - P Waste Black Potassium Notes: (Same Inactive Chloride as: K-Dur 2016 [facility] ) "Do Not Crush" With food and full glass of water argatroban 100 Notes: No Longer MG/ML Injectable Argatroban Active 2016 [place] Solution 50 mg/ 50 ml inj (1mg/1ml) WASTE: F/P - Black; E - Municipal Trash Bin MEDICATION WASTE Product Size: 50 mg Product Wasted: ___ mg bivalirudin 50 250 mg, 250 Inactive MG/ML Injectable mL, Rate: 2016 [facility] Solution Start at 0.05 mg/kg/hr, Dosing Weight 147.909, kg, Route: IV, Total Volume: 250, Start Date: 03/17/17 11:37:00 TREE TRIMMER, Duration: 30 day, Stop date: 04/16/17 11:36:00 TREE TRIMMER, Replace Every: 24 hr bivalirudin 50 250 mg, 250 Inactive MG/ML Injectable mL, Rate: 2016 [facility] Solution Start at 0.05 mg/kg/hr, Dosing Weight 147.909, kg, Route: IV, Total Volume: 250, Start Date: 03/17/17 11:35:00 TREE TRIMMER, Duration: 30 day, Stop date: 04/16/17 11:34:00 TREE TRIMMER, Replace Every: 24 hr Losartan Notes: (Same No Longer as: Cozaar) Active 2016 [facility] Furosemide Notes: (Same No Longer as: Lasix) Active 2016 [facility] May cause GI upset. Give with food or milk. carvedilol Notes: Give No Longer with food. Active 2016 [facility] (Same As: Coreg) Allopurinol Notes: (Same No Longer as: Active 2016 [facility] Zyloprim) Potassium Notes: (Same Inactive Chloride as: K-Dur 2016 [facility] 20) "Do Not Crush" With food and full glass of water Lovenox Notes: Nurse Inactive to ensure 2016 [facility] documentatio n of patient education per anticoagulat ion policy. (Same as: Lovenox) Senokot Notes: (Same No Longer as: Senokot) Active 2016 [facility] tamsulosin Notes: (Same No Longer As: Flomax) Active 2016 [facility] "Do Not Crush" SENOKOT-S 2 tab, Inactive Route: PO, 2016 [facility] Dosing Weight 147.909, kg, Bedtime, Start date: 03/16/17 21:00:00 TREE TRIMMER, Duration: 30 day, Stop date: 04/14/17 21:00:00 TREE TRIMMER atorvastatin Notes: (Same No Longer as: Lipitor) Active 2016 [facility] 200 ACTUAT Notes: Same No Longer Albuterol 0.09 as: Active 2016 [facility] MG/ACTUAT / Combivent Ipratropium Respimat [place] 0.018 WASTE: MG/ACTUAT Aerosol - Metered Dose Return to [facility] [Combivent] Streptococcus Notes: Shake Inactive pneumoniae well prior 2016 [facility] serotype 1 to use capsular antigen (Same as: diphtheria Prevnar 13) [id number] protein conjugate vaccine / Streptococcus pneumoniae serotype 14 capsular antigen diphtheria [id number] protein conjugate vaccine / Streptococcus pneumoniae serotype 18C capsular antigen d carvedilol 25 mg 25 mg = 1 No Longer oral tablet tab, PO, Active 2016 [facility] BID, 0 Refill(s) Furosemide 40 mg, PO, Active BID, 0 2016 [facility] Refill(s) tamsulosin 0.4 mg, PO, Active Bedtime, 0 2016 [facility] Refill(s) Losartan 100 mg, PO, Active Daily, 0 2016 Refill(s) sodium chloride 1,000 mL, No Longer 0.9% 1000 ml INJ Rate: 75 Active 2016 [facility] est 1,000 mL ml/hr, Infuse over: 13.3 hr, Route: IV, Dosing Weight 147.909 kg, Total Volume: 1,000, Start date: 03/16/17 17:43:00 TREE TRIMMER, Duration: 30 day, Stop date: 04/15/17 17:42:00 TREE TRIMMER Lovenox Notes: Nurse Inactive to ensure 2016 [facility] documentatio n of patient education per anticoagulat ion policy. (Same as: Lovenox) carvedilol 25 mg 25 mg = 1 Active oral tablet tab, PO, 2015 [facility] Q12H, # 180 tab, 0 Refill(s) AMIODarone 200 200 mg = 1 Active mg oral tablet tab, PO, 2015 [facility] t BID-Meals, # 90 tab, 0 Refill(s) Amlodipine Notes: (Same Inactive as: Norvasc) 2015 carvedilol Notes: Give No Longer with food. Active 2015 [facility] (Same As: Coreg) Amiodarone Notes: (Same No Longer as: Active 2015 [facility] Cordarone) Sodium Chloride 250 mL, No Longer 0.9% IV Route: IVPB, Active 2015 [facility] Start date: 03/10/16 15:01:00 CDT, Duration: 30 day, Stop date: 04/09/16 14:00:00 TREE TRIMMER, PRN Line Flush BD Normal Saline Notes: (Same No Longer Flush as: BD Active 2015 [facility] Posiflush) Losartan Notes: (Same No Longer [...] MG / Clavulanate food. (Same Active 2015 [facility]west 125 MG Oral as: Tablet Augmentin 875) Amlodipine Notes: (Same Inactive as: Norvasc) 2015 [facility] Allopurinol Notes: (Same No Longer as: Active 2015 [facility] Zyloprim) Lyrica Notes: (Same No Longer as: Lyrica) Active 2015 [facility] SENOKOT-S 2 tab, Inactive Route: PO, 2015 [facility] Dosing Weight 132.727, kg, Bedtime, Start date: 03/09/16 21:00:00 CDT, Duration: 30 day, Stop date: 04/07/16 21:00:00 TREE TRIMMER atorvastatin Notes: (Same No Longer as: Lipitor) Active 2015 [facility] Alprazolam 0.5 Notes: With No Longer MG Oral Tablet food or milk [facility] (Same as: Xanax) Senokot Notes: (Same No Longer as: Senokot) Active 2015 [facility] Colchicine 0.6 0.6 mg, 1 No Longer MG Oral Tablet tab, Route: Active 2015 [facility] PO, Drug form: TAB, BID, Dosing Weight 132.727, kg, PRN Shortness of breath, Start date: 03/09/16 19:58:00 CDT, Duration: 30 day, Stop date: 04/08/16 19:57:00 TREE TRIMMER 200 ACTUAT Notes: Same No Longer Albuterol 0.09 as: Active 2015 [facility] MG/ACTUAT / Combivent Ipratropium Respimat Jenkinjones 0.018 WASTE: MG/ACTUAT Aerosol - Metered Dose Return to [facility] [Combivent] acetaminophen-hy Notes: (Same No Longer drocodone 325 as: [place] Active 2015 [facility] t mg-5 mg oral 325/5) Do tablet not exceed 4gm/day of acetaminophe n. Amoxicillin 875 1 tab, PO, No Longer MG / Clavulanate BID, # 20 Active 2015 [facility] 125 MG Oral tab, 0 Tablet Refill(s) Hydralazine 50 mg = 1 No Longer Hydrochloride 50 tab, PO, Active 2015 [facility] est MG Oral Tablet TID, # 90 [...] MG/ML / as: Duoneb) Active 2015 Ipratropium Jenkinjones 0.167 MG/ML Inhalant Solution [DuoNeb] Nitroglycerin Notes: (Same No Longer Sugar 0.4 MG as:Nitroquic Active 2015 Sublingual k, Tablet Nitrostat) "Do Not Crush" Sublingual tablet Enoxaparin Notes: (Same No Longer Sug ar as: Lovenox) Active 2015 [facility] Docusate Notes: (Same No Longer Sugar as: Colace) Active 2015 (Do Not Crush) Acetaminophen Notes: Do No Longer Sug ar not exceed 4 Active 2015 [facility] gm/day. (Same as: Tylenol) Ondansetron Notes: (Same No Longer Blake gar as: Zofran) Active 2015 [facility] Product Size: 4 mg Product Wasted: ___ mg Morphine Notes: (Same No Longer Sugar as:MORPhine Active 2015 [facility] Sulfate) Acetaminophen Notes: (Same No Longer Sugar 325 MG / as: [place] Active 2015 Hydrocodone 325/5) Do Bitartrate 5 MG not exceed Oral Tablet 4gm/day of acetaminophe n. Lasix Notes: (Same Inactive Sugar as: Lasix) 2015 [facility] Product Size: 40 mg Product Wasted: __20_ mg Aspirin Notes: Take Inactive Sugar with food. 2015 Nitroglycerin Notes: (Same No Longer Sugar as:Nitroquic Active 2015 [facility] k, Nitrostat) "Do Not Crush" Sublingual tablet Saline Flush Notes: (Same No Longer S ugar 0.9% as: BD Active 2015 [facility] Posiflush) Nitrofurantoin 100 mg = 1 Active Sug ar 100 MG Oral cap, PO, 2015 [facility] Capsule BID, X 10 [Macrobid] day, # 20 cap, 0 Refill(s) Rocephin Notes: (Same Inactive Sugar As: 2015 Rocephin). Use with 100 mL NS and infuse over 30 min MEDICATION WASTE Product Size: 1000 mg Product Wasted: ___ mg Keflex 500 mg, No Longer Route: PO, Active 2014 [facility] Drug form: CAP, ABXQ6H, Dosing Weight 130.004, kg, Start date: 04/24/15 16:14:00, Duration: 30 day, Stop date: 05/24/15 10:14:00 Cephalexin 500 500 mg = 1 Active MG Oral Capsule cap, PO, 2014 [facility] [Keflex] QID, X 5 day, # 20 cap, 0 Refill(s) Cefazolin 1 gm, 100 No Longer mL, Route: Active 2014 [facility] IVPB, Drug form: INJ, ABXQ8H, Dosing Weight 130.004, kg, Start date: 04/23/15 17:00:00, Duration: 3 doses or times, Stop date: 04/24/15 9:00:00 morphine Sulfate Notes: (Same No Longer as:MORPhine Active 2014 [facility] Sulfate) Senokot Notes: (Same No Longer as: Senokot) Active 2014 [facility] SENOKOT-S 2 tab, Inactive Route: PO, 2014 [facility] Dosing Weight 130.004, kg, Bedtime, Start date: 04/21/15 21:00:00, Duration: 30 day, Stop date: 05/20/15 21:00:00 atorvastatin Notes: (Same No Longer as: Lipitor) Active 2014 Colchicine 0.6 0.6 mg, 1 No Longer MG Oral Tablet tab, Route: Active 2014 [facility] PO, Drug form: TAB, Daily, Dosing Weight [...] (Same No Longer as: Norvasc) Active 2014 [facility] Amiodarone Notes: (Same No Longer as: Active 2014 [facility] Cordarone) Colchicine 0.6 0.6 mg, 1 Inactive MG Oral Tablet tab, Route: 2014 [facility] PO, Drug form: TAB, Daily, Dosing Weight 130.004, kg, Start date: 04/21/15 9:00:00, Duration: 30 day, Stop date: 05/20/15 9:00:00 Furosemide 40 MG Notes: (Same No Longer Oral Tablet as: Lasix) Active 2014 May cause GI upset. Give with food or milk. Lovenox Notes: (Same No Longer as: Lovenox) Active 2014 [facility] metoprolol Notes: (Same No Longer as: Toprol Active 2014 [facility] XL) May split tab, but do not crush. gabapentin 300 Notes: (Same No Longer MG Oral Capsule as: Active 2014 [facility] t Neurontin) Hydralazine Notes: (Same No Longer as: Active 2014 Apresoline) May interfere w/enteral feedings Take With Food Lyrica Notes: Same No Longer as Lyrica Active 2014 [facility] 200 ACTUAT Notes: Same No Longer Albuterol 0.09 as: Active 2014 MG/ACTUAT / Combivent Ipratropium Respimat Jenkinjones 0.018 MG/ACTUAT Metered Dose Inhaler [Combivent] Alprazolam [...] / Clavulanate BID, # 20 Active 2014 [facility] 125 MG Oral tab, 0 Tablet Refill(s) [...] No Longer Flush as: BD Active 2014 [facility] Posiflush) acetaminophen-co Notes: Do No Longer deine 300 mg-30 not exceed Active 2014 [facility] mg oral tablet 4gm/day of acetaminophe n. (Same as: Tylenol with Codeine # 3) tramadol 50 mg = 1 No Longer hydrochloride 50 tab, PO, Active 2014 [facility] est MG Oral Tablet Q4H, PRN [Ultram] pain, # 20 tab, 0 Refill(s) Acetaminophen Notes: (Same Inactive 325 MG / as: [place] 2014 [facility] Hydrocodone 325/5) Do Bitartrate 5 MG not exceed Oral Tablet 4gm/day of [[place] 5/325] acetaminophe n. Saline Flush Notes: (Same Inactive 0.9% as: BD 2014 [facility] Posiflush) Barium Sulfate Notes: Same Inactive as Readi-Cat 2014 [facility] 2 Morphine Notes: (Same Inactive as:MORPhine 2014 [facility] Sulfate) Saline Flush Notes: (Same Inactive Blake gar 0.9% as: 2014 [facility] Posiflush) acetaminophen-co Notes: Do Inactive deine #3 not exceed 2013 [facility] 4gm/day of acetaminophe n. (Same as: Tylenol with Codeine # 3) Acetaminophen Notes: Do Inactive not exceed 4 2013 [facility] gm/day. (Same as: Tylenol) gabapentin 300 600 mg = 2 Active MG Oral Capsule cap, PO, [address] [facility] [address] TID, 0 Refill(s) Zinacef Notes: (Same No Longer As: Kefurox, Active 2013 [facility] Zinacef) Hydralazine Notes: (Same Inactive Hydrochloride [...] Bumex Notes: (Same Inactive As: Bumex) 2013 [facility] Neurontin Notes: (Same No Longer as: Active 2013 [facility] Neurontin) gabapentin 400 400 mg = 1 Active MG Oral Capsule cap, PO, [address] [facility] [address] TID, # 90 cap, 0 Refill(s) Pradaxa Notes: DO Inactive NOT break, 2013 [facility] chew or open capsules for administrati on. 120 ACTUAT 2 Active Budesonide 0.16 inhalation, 2013 [facility] MG/ACTUAT / INHALATION, formoterol Q12H, # 10 fumarate 0.0045 gm, 0 MG/ACTUAT Refill(s) Metered Dose Inhaler [Symbicort] valsartan 160 mg 160 mg = 1 No Longer oral tablet tab, PO, Active 2013 [facility] Daily, # 30 tab, 0 Refill(s) Furosemide 40 MG 40 mg = 1 Active Oral Tablet tab, PO, 2013 [facility] BID, # 60 tab, 0 Refill(s) Lasix Notes: (Same No Longer as: Lasix) Active 2013 May cause GI upset. Give with food or milk. Diovan Notes: Same No Longer as Diovan Active 2013 [facility] homatropine-hydr Notes: (Same No Longer ocodone as: Hycodan, Active 2013 [facility] Hydromet) 120 ACTUAT Notes: (Same No Longer Budesonide 0.16 as: Active 2013s t MG/ACTUAT / Symbicort) formoterol fumarate 0.0045 MG/ACTUAT Metered Dose Inhaler [Symbicort] 12 HR 5 ml, Route: Inactive Chlorpheniramine PO, Drug 2013 [facility] est Maleate 1.6 Form: MG/ML / SUSPER, Hydrocodone Dosing Bitartrate 2 Weight MG/ML Extended 127.1, kg, Release Q12H, PRN as Suspension needed for [Tussionex cough, Start [facility]] date: 03/02/14 10:08:00, Duration: 30 day, Stop date: 04/01/14 10:07:00 Albuterol 0.833 Notes: (Same No Longer H MG/ML / as: Duoneb) Active 2013 [facility] Ipratropium Jenkinjones 0.167 MG/ML Inhalant Solution [DuoNeb] Lasix Notes: (Same Inactive as: Lasix) 2013 [facility] Norvasc Notes: (Same No Longer as: Norvasc) Active 2013 [facility] cefpodoxime 200 200 mg = 1 Active MG Oral Tablet tab, PO, 2013 [facility] t [Vantin] Q12H, # 14 tab, 0 Refill(s) Robitussin-AC 5 mL, PO, Active oral syrup Q4H, Cough, 2013 [facility] # 120 mL, 0 Refill(s) Amlodipine 10 MG 10 mg, PO, Active Oral Tablet Daily, # 30 2013 [facility] t [Norvasc] tab, 0 Refill(s) Lasix Notes: (Same Inactive as: Lasix) 2013 [facility] Procrit Notes: (Same No Longer as: Procrit) Active 2013 [facility] epoetin dottie 10,000 unit/1 ml VL Flumazenil Notes: (Same No Longer as: Active 2013 [facility] Romazicon) Naloxone Notes: (Same No Longer as: Narcan) Active 2013 [facility] 05/11 NS 500 mL 500 mL, Inactive Rate: 75 2013 [facility] ml/hr, Infuse over: 6.7 hr, Route: IV, Dosing Weight 127.1 kg, Total Volume: 500, Start date: 02/28/14 9:08:00, Duration: 6 hr, Stop date: 02/28/14 15:07:00 Magnesium Notes: (Same Inactive Sulfate as: MgSO4) 2013 [facility] Hydralazine Notes: (Same No Longer Hydrochloride 50 as: Active [address] [facility] [address] MG Oral Tablet Apresoline) May interfere w/enteral feedings Take With Food Jessica Brooks Notes: (Same No Longer H As: Tessalon Active 2013 [facility] Perles) "Do Not Crush" Budesonide 0.25 Notes: (Same No Longer H MG/ML Inhalant As: Active 2013 [facility] Solution Pulmicort) [Pulmicort] Protonix Notes: No Longer Tablet Active 2013 [facility] should not be chewed or crushed. (Same as: Protonix) Allopurinol Notes: (Same No Longer as: Active 2013 [facility] Zyloprim) Magnesium 2 gm, 50 mL, Inactive Sulfate Route: IVPB, 2013 [facility] Drug form: INJ, ONCE, Dosing Weight 127.1, kg, Total dose = 2 gm, Start date: 02/27/14 7:19:00, Duration: 1 doses or times, Stop date: 02/27/14 7:19:00 Hydralazine Notes: (Same Inactive Hydrochloride 50 as: [address] [facility] [address] MG Oral Tablet Apresoline) May interfere w/enteral feedings Take With Food atorvastatin 40 mg, Inactive Route: PO, 2013 [facility] Drug form: TAB, Bedtime, Dosing Weight 126.3, kg, Start date: 02/26/14 21:00:00, Duration: 30 day, Stop date: 03/27/14 21:00:00 isosorbide Notes: (Same No Longer dinitrate as:Isordil) Active 2013 [facility] extended release Take on empty stomach/ full glass of water. Do not crush. Albuterol 0.833 Notes: (Same No Longer H MG/ML / as: Duoneb) 2013 [facility] Ipratropium Jenkinjones 0.167 MG/ML Inhalant Solution [DuoNeb] Coreg Notes: Give No Longer with food. Active 2013 [facility] (Same As: Coreg) Acetylcysteine 600 mg, 3 No Longer 200 MG/ML mL, Route: Active 2013 [facility] Inhalant NEB, Drug Solution Form: SOLN, Dosing Weight 126.3, kg, RQID, Start date: 02/26/14 19:00:00, Duration: 30 day, Stop date: 03/28/14 15:00:00 Azithromycin Notes: (Same No Longer As: Active 2013 [facility] Zithromax IV) Ceftriaxone Notes: (Same No Longer As: Active 2013 [facility] Rocephin). Use with 100ml NS mini-bag PLUS and infuse over 30 min Robitussin-AC Notes: (Same No Longer oral syrup As: Active 2013 [facility] Robitussin AC) Albuterol 0.833 Notes: (Same No Longer H MG/ML / as: Duoneb) Active 2013 [facility] Ipratropium Jenkinjones 0.167 MG/ML Inhalant Solution [DuoNeb] Acetylcysteine 600 mg, 3 No Longer 200 MG/ML mL, Route: Active 2013 [facility] Inhalant PO, Drug Solution form: SOLN, BID, Dosing Weight 126.3, kg, Priority: NOW, Start date: 02/26/14 17:10:00, Duration: 1 day, Stop date: 02/27/14 17:00:00 Amiodarone 200 mg, Inactive Route: PO, 2013 [facility] Drug form: TAB, BID, Dosing Weight 126.3, kg, Start date: 02/26/14 17:00:00, Duration: 30 day, Stop date: 03/28/14 9:00:00 carvedilol 12.5 mg, Inactive Route: PO, 2013 [facility] Drug form: TAB, BID, Dosing Weight 126.3, kg, Start date: 02/26/14 17:00:00, Duration: 30 day, Stop date: 03/28/14 9:00:00 gabapentin 400 Notes: (Same No Longer MG Oral Capsule as: [facility] Neurontin) tramadol Notes: Not No Longer hydrochloride 50 to exceed Active 2013 [facility] MG Oral Tablet 400mg/day. (Same As: Ultram) Alprazolam Notes: With No Longer food or milk Active 2013 [facility] (Same as: Xanax) 200 ACTUAT Notes: Same No Longer Albuterol 0.09 as: Active 2013 [facility] MG/ACTUAT / Combivent Ipratropium Respimat Jenkinjones 0.018 MG/ACTUAT Metered Dose Inhaler [Combivent] Cordarone Notes: (Same No Longer as: Active 2013 [facility] Cordarone) Coreg Notes: Give Inactive with food. 2013 [facility] (Same As: Coreg) atorvastatin 40 40 [...] Longer 0.9% IV Route: IVPB, Active 2013 [facility] Start date: 02/26/14 2:42:00, Duration: 30 day, Stop date: 03/28/14 1:41:00, PRN Line Flush BD Normal Saline Notes: (Same No Longer Flush as: BD Active 2013 [facility] Posiflush) aspirin Notes: Take No Longer with food. Active 2013 [facility] Ondansetron Notes: (Same No Longer as: Zofran) Active 2013 [facility] Morphine Notes: (Same No Longer as:MORPhine Active 2013 [facility] Sulfate) aspirin Notes: Take Inactive with food. 2013 [facility] Morphine Notes: (Same No Longer as:MORPhine Active 2013 [facility] Sulfate) atorvastatin 20 40 mg = 2 Active MH mg oral tablet tab, PO, 2013s Bedtime, # 60 tab, 0 Refill(s) AMIODarone 200 200 mg = 1 Active MH mg oral tablet tab, PO, 2013s t BID, # 60 tab, 0 Refill(s) dabigatran 150 mg = 1 Active etexilate 150 MG cap, PO, 2013 [facility] est Oral Capsule BID, # 60 [Pradaxa] cap, 0 Refill(s) carvedilol 12.5 12.5 mg = 1 Active mg oral tablet tab, PO, 2013 [facility] t BID, # 60 tab, 0 Refill(s) Docusate Sodium Notes: (Same No Longer H 100 MG Oral as: Colace) Active 2013 [facility] t Capsule [Colace] (Do Not Crush) Coreg Notes: Give No Longer with food. Active 2013 [facility] (Same As: Coreg) Cordarone Notes: (Same No Longer as: Active 2013 [facility] Cordarone) Magnesium 2 gm, 50 mL, Inactive Sulfate Route: IV2013 [facility] Drug form: INJ, ONCE, Dosing Weight 119.801, kg, Start date: 01/27/14 8:07:00, Duration: 2 hr, Stop date: 01/27/14 8:07:00 Lipitor Notes: (Same No Longer As: Lipitor) Active 2013 [facility] Magnesium 2 gm, 50 mL, Inactive Sulfate Route: IV2013 [facility] Drug form: INJ, ONCE, Dosing Weight 119.801, kg, Total dose = 2 gm, Start date: 01/26/14 19:17:00, Duration: 1 doses or times, Stop date: 01/26/14 19:17:00 AMIODarone 900 2 mg/ml. No Longer mg in D5W 500 ml Use Glass Active 2013 [facility] IV 900 mg + Bottle or Dextrose 5% in Non PVC Bag Water IV 482 mL "Use 0.22 micron in-line filter" Amiodarone 2 mg/ml. Inactive "Recommendat 2013 [facility] ion: Use an in-line filter during administrati on for continuous infusions to reduce the incidence of phlebitis" (Same as: Cordarone) Pradaxa Notes: DO No Longer NOT break, Active 2013 [facility] chew or open capsules for administrati on. Aspirin 81 MG Notes: Do No Longer Enteric Coated not crush or Active 2013 [facility] Tablet chew. (Same As: Ecotrin) gabapentin 400 Notes: (Same No Longer MG Oral Capsule as: Active 2013 [facility] t [Neurontin] Neurontin) Digoxin Notes: Take Inactive on an Empty 2013 [facility] Stomach (Same as: Lanoxin) Coreg Notes: Give No Longer with food. Active 2013 [facility] (Same As: Coreg) Nitroglycerin Notes: 1 No Longer 0.02 MG/MG gram is Active 2013 [facility] Topical Ointment approximatel y 1 inch of nitroglyceri n ointment (20 mg NTG per gram) (Same as:Nitro-Bid ) Protonix Notes: No Longer Tablet Active 2013 [facility] should not be chewed or crushed. (Same as: Protonix) tramadol Notes: Not No Longer hydrochloride 50 to exceed Active 2013 [facility] MG Oral Tablet 400mg/day. (Same As: Ultram) Alprazolam Notes: With No Longer food or milk Active 2013 [facility] (Same as: Xanax) Morphine Notes: (Same No Longer as: MORPhine Active 2013 [facility] Sulfate) Acetaminophen Notes: (Same No Longer 325 MG / as: [place] Active 2013 [facility] Hydrocodone 325/5) Do Bitartrate 5 MG not exceed Oral Tablet 4gm/day of [[place] 5/325] acetaminophe n. Lasix Notes: (Same Inactive as: Lasix) 2013 [facility] Zofran Notes: (Same No Longer as: Zofran) Active 2013 [facility] Tylenol Notes: Do No Longer not exceed 4 Active 2013 [facility] gm/day. (Same as: Tylenol) Hydralazine Notes: (Same No Longer as: Active 2013 [facility] Apresoline) Push over 5 minutes Sodium Chloride 250 mL, No Longer 0.9% IV Route: IVPB, Active 2013 [facility] Start date: 01/26/14 6:20:00, Duration: 30 day, Stop date: 02/25/14 6:19:00, PRN Line Flush BD Normal Saline Notes: (Same No Longer Flush as: BD Active 2013 [facility] Posiflush) digoxin Notes: (Same Inactive as: Lanoxin) 2013 [facility] dabigatran PO, BID, 0 No Longer etexilate 150 MG Refill(s) Active 2013 [facility] Oral Capsule [Pradaxa] Protonix 40 mg, PO, Active Daily, # 30 2013 [facility] tab, 0 Refill(s) gabapentin 400 PO, BID, 0 Active MG Oral Capsule Refill(s) 2013 [facility] est [Neurontin] tramadol PO, Q12H, Active hydrochloride 50 Pain, [address] [facility] [address] MG Oral Tablet Refill(s) 200 ACTUAT INHALER, Active Albuterol 0.09 SOB, 0 2013 [facility] MG/ACTUAT / Refill(s) Ipratropium Jenkinjones 0.018 MG/ACTUAT Metered Dose Inhaler [Combivent] Digoxin 125 No Longer microgram, Active 2013 [facility] PO, Daily, 0 Refill(s) carvedilol 25 MG 25 mg = 1 No Longer Oral Tablet tab, PO, Active 2013 [facility] [Coreg] BID, # 180 tab, 0 Refill(s) [place] 10/325 PO, PRN, PO Active Sugar oral tablet Substitution 2012 [facility], Maintenance Protonix 40 mg PO, Daily, PO Active Sug ar oral enteric Substitution 2012 [facility] coated tablet Allowed enalapril 5 mg PO, BID, PO Active Sugar oral tablet Substitution 2012 [facility] Coumadin 4 mg PO, Daily, PO Active Suga r oral tablet Substitution 2012 [facility] Omnipaque 300 100 mL, 400 IV Active Melo OPI D ml/hr, 2012 [place] Route: IV, Drug Form: SOLN, ONCE, Start date: 07/11/12 12:00:00, Stop date: 07/11/12 12:00:00 Omnipaque 300 100 mL, 400 IV Active Melo OPI D ml/hr, 2012 [place] Route: IV, Drug Form: SOLN, ONCE, Start date: 07/11/12 11:40:00, Stop date: 07/11/12 11:40:00 Neurontin 600 mg, 2 PO No Longer [place] 10/20/ MH cap, Route: Active 2011 [facility] PO, Drug form: CAP, TID, Start date: 02/27/12 9:00:00, Duration: 30 day, Stop date: 03/27/12 17:00:00 Demadex 10 mg, 1 PO No Longer [place] 10/20/ MH tab, Route: Active 2011 [facility] PO, Drug form: TAB, Daily, Start date: 02/27/12 9:00:00, Duration: 30 day, Stop date: 03/27/12 9:00:00 Xanax 0.5 mg, 0.5 PO No Longer [place] 10/20/ MH tab, Route: Active 2011 [facility] PO, Drug form: TAB, Daily, Start date: 02/26/12 19:50:00, Duration: 30 day, Stop date: 03/27/12 9:00:00 Betapace 80 mg, 1 PO No Longer [place] 10/20/ MH tab, Route: Active 2011 [facility] PO, Drug form: TAB, BID, Start date: 02/26/12 19:49:00, Duration: 30 day, Stop date: 03/27/12 17:00:00 Phenergan 25 mg, 1 PO No Longer [place] 10/20/ MH tab, Route: Active 2011 [facility] PO, Drug form: TAB, Q6H, PRN Nausea & Vomiting, Start date: 02/26/12 19:46:00, Duration: 30 day, Stop date: 03/27/12 19:45:00 Protonix 40 mg, 1 PO No Longer [place] 10/20/ MH tab, Route: Active 2011 [facility] PO, Drug form: ECTAB, Before Dinner, [...] [place] 10/20/ MH Route: PO, Active 2011 [facility] Drug form: TAB, Daily, Start date: 02/26/12 19:44:00, Duration: 30 day, Stop date: 03/27/12 9:00:00 Lipitor 10 mg, 1 PO No Longer [place] tab, Route: Active 2011 [facility] PO, Drug form: TAB, Daily, Start date: 02/26/12 19:43:00, Duration: 30 day, Stop date: 03/27/12 9:00:00 Prinivil 2.5 mg, 0.5 PO No Longer [place] tab, Route: Active 2011 [facility] PO, Drug form: TAB, Daily, Start date: 02/26/12 9:00:00, Duration: 30 day, Stop date: 03/26/12 9:00:00 Lopressor 25 mg, 1 PO No Longer [place] tab, Route: Active 2011 [facility] PO, Drug form: TAB, Q12H, Start date: 02/26/12 9:00:00, Duration: 30 day, Stop date: 03/26/12 21:00:00 aspirin 325 mg 325 mg, 1 PO No Longer [place] tablet tab, Route: Active 2011 [facility] PO, Drug form: TAB, Daily, Start date: 02/26/12 9:00:00, Duration: 30 day, Stop date: 03/26/12 9:00:00 Lovenox 120 mg, 0.8 SUB-Q No Longer [place] mL, Route: Active 2011 [facility] SUB-Q, Drug form: INJ, [id number], Start date: 02/26/12 1:00:00, Duration: 30 day, Stop date: 03/26/12 13:00:00 morphine Sulfate 4 mg, 0.5 IV No Longer [place] mL, Route: Active 2011 [facility] IV, Drug form: INJ, Q4H, PRN Pain, Start date: 02/26/12 0:46:00, Duration: 30 day, Stop date: 03/27/12 0:45:00 nitroglycerin 0.4 mg, 1 SL No Longer [place] MH 0.4 mg tab, Route: Active 2011 [facility] sublingual SL, Drug tablet form: TAB, Q5Min, PRN Chest Pain, Start date: 02/26/12 0:46:00, Duration: 30 day, Stop date: 03/26/12 23:45:00 Sodium Chloride 250 mL, IVPB No Longer [place] 0.9% IV Route: IVPB, Active 2011 [facility] Start date: 02/26/12 0:45:00, Duration: 30 day, Stop date: 03/26/12 23:44:00, PRN Line Flush BD Normal Saline 10 mL, IVP No Longer [place] Flush Route: IVP, Active 2011 [facility] Drug Form: INJ, PRN, PRN Line Flush, Start date: 02/26/12 0:45:00, Duration: 30 day, Stop date: 03/26/12 23:44:00 [place] 10/325 1 tab, PO, PO Active Judith-P Dariel as oral tablet Q6H, PRN, 40 [facility] 2011 Medical tab, for Center pain, Substitution Allowed, Soft Stop, TAB Medrol Dosepak 4 As directed PO Active Judith-[facility] [place] mg Tablet on package [facility] 2011 Medical instructions Center , PO, Daily, 1 Pack, Substitution Allowed, Take with or without foodTake with or without food [place] 5/325 oral 1 tab, PO No Longer [...] 1,000 mL, IV No Longer Francisco J[facility] Rate: 75 Active 2011 Medical ml/hr, [place] Infuse over: 13.3 hr, Route: IV, Dosing Weight 119.091 kg, Total Volume: 1,000, Start date: 12/05/11 8:34:00, Duration: 30 day, Stop date: 01/04/12 8:33:00 cefazolin + 2 gm, Route: IVPB [facility] Sodium Chloride IVPB, Drug Active 2011 Medic al 0.9% IV 100 mL form: [place] PDR/INJ, ABXQ8H, Start date: 12/05/11 6:00:00, Duration: 4 doses or times, Stop date: 12/06/11 6:00:00 dexamethasone 4 mg, 1 mL, IV No Longer [facility] [place] Route: IV, Active 2011 Medical Drug form: [place] INJ, Q6H, Start date: 12/05/11 6:00:00, Duration: 12 doses or times, Stop date: 12/08/11 0:00:00 magnesium 2 gm, 50 mL, IVPB No Longer [facility] [place] sulfate Route: IVPB, Active 2011 Medical Drug form: [place] INJ, ONCE, Start date: 12/05/11 5:00:00, Stop date: 12/05/11 5:00:00 Dilaudid 0.5 mg, 0.25 IV No Longer Judith-P Dariel as mL, Route: Active alba 2011 Medical IV, Drug Center form: INJ, Q3H, PRN Pain Score 4-6, Start date: 12/05/11 2:05:00, Duration: 30 day, Stop date: 01/04/12 2:04:00 ondansetron 4 mg, 2 mL, IVP No Longer Francisco Javier 12/04[facility] [place] Route: IVP, Active 2011 Medical Drug form: Center INJ, ONCE, PRN Nausea & Vomiting, Start date: 12/04/11 23:51:00 hydromorphone 0.5 mg, 0.25 IVP No Longer [place] 12/04[facility] [place] mL, Route: Active 2011 Medical IVP, Drug Center form: INJ, Q5Min, PRN Pain Score 4-6, Start date: 12/04/11 23:51:00, Duration: 5 doses or times, Stop date: Limited # of times naloxone 0.04 mg, 0.1 IVP No Longer [place] 12/04[facility] mL, Route: Active 2011 Medical IVP, Drug Center form: INJ, Q2MIN, PRN Narcotic Reversal, Start date: 12/04/11 23:51:00, Duration: 8 doses or times, Stop date: Limited # of times flumazenil 0.2 mg, 2 IVP No Longer [place] 12/04[facility] mL, Route: Active 2011 Medical IVP, Drug Center form: INJ, PRN, PRN Benzodiazepi ne Reversal, Initial dose, Start date: 12/04/11 23:51:00, Duration: 30 day, Stop date: 01/03/12 23:50:00 niCARdipine 0.25 mg, 0.1 IVP No Longer [place] 12/04[facility] [place] mL, Route: Active 2011 Medical IVP, Drug Center form: INJ, Q5Min, PRN Elevated BP, Start date: 12/04/11 23:51:00, Duration: 4 doses or times, Stop date: 12/05/11 4:00:00 NS + KCL 20mEq/L 1,000 mL, IV No Longer Francisco Javier 12/03[facility] [place] 1000ml (Premix) Rate: 100 Active 2011 [...] Route: IV, Active 2011 Medical Start date: [place] 12/03/11 17:14:00, Duration: 30 day, Stop date: 01/02/12 17:13:00, PRN Blood Glucose Results Dextrose 50% in 25 mL, IV No Longer Lovy Dariel as [place] IV Route: IV, Active 2011 Medical Start date: [place] 12/03/11 17:00:00, Duration: 30 day, Stop date: [...] 9:00:00 Combivent 2 INHALER No Longer Lovy [facility] inhalation inhalation, Active 2011 Medical aerosol with Route: Center adapter INHALER, Drug Form: AERO/A, Daily, Start date: 12/02/11 9:00:00, Duration: 30 day, Stop date: 12/31/11 9:00:00 lisinopril 10 mg, 1 PO No Longer Lovy [facility] tab, Route: Active 2011 Medical [...] 10 mg, 1 PO No Longer Lovy [facility] tab, Route: Active 2011 Medical PO, Drug Center form: TAB, QPM, Start date: 12/01/11 21:00:00, Duration: 30 day, Stop date: 12/31/11 17:00:00 promethazine 25 mg, 1 PO No Longer Lovy 12/01[facility] tab, Route: Active 2011 Medical PO, Drug Center form: TAB, Q12H, PRN as needed for nausea/vomit ing, Start date: 12/01/11 19:21:00, Duration: 30 day, Stop date: 12/31/11 19:20:00 ALPRAZOLam 0.5 mg, 1 PO No Longer Lovy 12/01[facility] tab, Route: Active 2011 Medical PO, Drug Center form: TAB, Daily, PRN as needed for anxiety, Start date: 12/01/11 19:21:00, Duration: 30 day, Stop date: 12/31/11 19:20:00 [place] 10/325 1 tab, PO No Longer [place] oral tablet Route: PO, Active [...] atorvastatin 10 10 mg, 1 PO Active [facility] [place] oral tablet tab, PO, 2011 Medical Daily, 30 Center tab, Substitution Allowed, TAB [place] 10/325 1 tab, PO, PO No Longer [place] [place] oral tablet Q6H, PRN, 24 Active alba 2011 Medical tab, for Center pain, Substitution Allowed, Soft Stop pantoprazole 40 40 mg, 1 PO No Longer [facility] [place] mg oral enteric tab, PO, Active 2011 Medical coated tablet Daily, 30 Center tab, Substitution Allowed, ECTAB gabapentin 600 600 mg, 1 PO Active [facility] [place] mg oral tablet tab, PO, 2011 Medical TID, 270 Center tab, Substitution Allowed Protonix 40 mg 40 mg, 1 PO Active [facility] [place] oral enteric tab, PO, 2011 [place] coated tablet Daily, 30 tab, 1, 1, Substitution Allowed, ECTAB Coreg 3.125 mg 3.125 mg, 1 PO Active [facility] [place] oral tablet tab, PO, 2011 [place] BID, 60 tab, 1, 1, Substitution Allowed, TAB [place] 5/325 oral 1 tab, PO, PO Active [facility] S ugar tablet Q4-6H, PRN, 2011 [place] 30 tab, as needed for pain, Substitution Allowed, Maintenance Flagyl 500 mg 500 mg, 1 PO Active [facility] [place] oral tablet tab, PO, 2011 [place] Q8H, 39 tab, Substitution Allowed, TAB Cipro 500 mg 500 mg, 1 PO Active [facility] [place] oral tablet tab, PO, 2011 [place] Q12H, 26 tab, Substitution Allowed, TAB Cipro 400 mg, 200 IVPB No Longer [facility] [place] mL, Route: Active 2011 IVPB, [...] ar 0.02% inhalation mL, Route: Active 2011 [facility] solution NEB, Drug form: SOLN, Q4H, Start date: 08/26/11 20:00:00, Duration: 30 day, Stop date: 09/25/11 16:00:00 albuterol 0.083% 2.49 mg, 3 NEB No Longer Melo [place] inhalation mL, Route: Active 2011 [facility] solution NEB, Drug form: SOLN, Q4H, Start date: 08/26/11 20:00:00, Duration: 30 day, Stop date: 09/25/11 16:00:00 Restoril 15 mg, 1 PO No Longer [facility] [place] cap, Route: Active 2011 PO, Drug form: CAP, Bedtime, PRN Sleep, Start date: 08/26/11 19:55:00, Duration: 30 day, Stop date: 09/25/11 19:54:00 [place] 5/325 oral 1 tab, PO No Longer [facility] [place] tablet Route: PO, Active [...] 50% 12.5 gm, 25 IVP No Longer [facility] [place] Syringe mL, Route: Active 2011 IVP, Drug Form: INJ, PRN, PRN Blood Glucose Results, Start date: 08/26/11 19:38:00, Duration: 30 day, Stop date: 09/25/11 19:37:00 glucagon 1 mg, Route: IM No Longer [facility] [place] IM, Drug Active 2011 [facility] form: PDR/INJ, PRN, PRN Blood Glucose Results, Start date: 08/26/11 19:38:00, Duration: 30 day, Stop date: 09/25/11 19:37:00 ALPRAZOLam 0.5 mg, 1 PO No Longer [facility] [place] tab, Route: Active 2011 PO, Drug form: TAB, Daily, PRN as needed for anxiety, Start date: 08/26/11 19:36:00, Duration: 30 day, Stop date: 09/25/11 19:35:00 levofloxacin 750 mg, 150 IV No Longer [facility] [place] mL, Route: Active 2011 IV, Drug form: SOLN, Q24H, Start date: 08/26/11 18:00:00, Duration: 30 day, Stop date: 09/24/11 18:00:00 cefepime 1 gm, Route: IV No Longer [facility] [place] IV, Daily, Active 2011 Start [...] 75 mg 75 mg, 1 PO Active [facility] [place] oral capsule cap, PO, 2011 Daily, 90 cap, Substitution Allowed, CAP sotalol 80 mg 80 mg, 1 PO Active [facility] [place] oral tablet tab, PO, 2011 [...] Longer Melo [place] mL, Route: Active 2011 [facility] IV, Drug form: INJ, Q4H, PRN as needed for pain, Start date: 08/26/11 17:07:00, Duration: 30 day, Stop date: 09/25/11 17:06:00 Tylenol 650 mg, 2 PO No Longer Melo [place] tab, Route: Active 2011 [facility] PO, Drug form: TAB, Q4H, PRN Pain, Start date: 08/26/11 17:03:00, Duration: 30 day, Stop date: 09/25/11 17:02:00 Sodium Chloride 1,000 mL, IV No Longer Melo S ugar 0.9% IV 1,000 mL Rate: 70 Active 2011 [facility] ml/hr, Infuse over: 14.3 hr, Route: IV, Dosing Weight 129.091 kg, Total Volume: 1,000, Start date: 08/26/11 16:59:00, Duration: 30 day, Stop date: 09/25/11 16:58:00 Demadex 10 mg, 1 PO No Longer Gil tab, Route: Active 2011 [facility] PO, Drug form: TAB, Daily, Start date: 07/07/11 9:00:00, Duration: 30 day, Stop date: 08/05/11 9:00:00 Glucophage 500 mg, 1 PO No Longer Gil tab, Route: Active 2011 [facility] PO, Drug form: TAB, Daily, Start date: 07/07/11 9:00:00, Duration: 30 day, Stop date: 08/05/11 9:00:00 Xanax 0.5 mg, 1 PO No Longer [place] tab, Route: Active 2011 [facility] PO, Drug form: TAB, Bedtime, Start date: 07/06/11 21:00:00, Duration: 30 day, Stop date: 08/04/11 21:00:00 Lipitor 10 mg, 1 PO No Longer Gli tab, Route: Active 2011 [facility] PO, Drug form: TAB, Bedtime, Start [...] No Longer [place] tab, Route: Active 2011 [facility] PO, Drug form: TAB, Q5PM, Start date: 07/06/11 17:00:00, Duration: 30 day, Stop date: 08/04/11 17:00:00 Dilliner 3-6-9 1200 Dill[place] 3-6-9 PO No Longer Gil H mg (own med) 1200 mg (own Active 2011 [facility] est med), 1,200 mg, Drug form: MISC, Route: PO, TID, 07/06/11 17:00:00, Duration: 30 day, Stop date: 08/05/11 13:00:00 Protonix 40 mg, 1 PO No Longer [place] tab, Route: Active 2011 [facility] PO, Drug form: ECTAB, Before Dinner, Start date: 07/06/11 16:30:00, Duration: 30 day, Stop date: 08/04/11 16:30:00 K-Dur 10 10 mEq, 1 PO No Longer Gil tab, Route: Active 2011 [facility] PO, Drug form: ERTAB, ONCE, Start date: 07/06/11 14:44:00, Stop date: 07/06/11 14:44:00 Neurontin 600 mg, 2 PO No Longer Gil cap, Route: Active 2011 [facility] PO, Drug form: CAP, TID, Start date: 07/06/11 13:32:00, Duration: 30 day, Stop date: 08/05/11 13:00:00 Lasix 40 mg, 1 PO No Longer Gil tab, Route: Active 2011 [facility] PO, Drug form: TAB, Daily, Start date: 07/06/11 13:31:00, Duration: 30 day, Stop date: 08/05/11 9:00:00 Phenergan 25 mg, 1 PO No Longer Gil tab, Route: Active 2011 [facility] PO, Drug form: TAB, Q12H, PRN Nausea, Start date: 07/06/11 13:30:00, Duration: 30 day, Stop date: 08/05/11 13:29:00 Betapace 80 mg, 1 PO No Longer [place] tab, Route: Active 2011 [facility] PO, Drug form: TAB, Q12H, Start date: 07/06/11 9:00:00, Duration: 30 day, Stop date: 08/04/11 21:00:00 DiaBeta 2.5 mg, 1 PO No Longer [place] tab, Route: Active 2011 [facility] PO, Drug form: TAB, TID, Start date: 07/06/11 9:00:00, Duration: 30 day, Stop date: 08/04/11 17:00:00 K-Dur 10 10 mEq, 1 PO No Longer [place] tab, Route: Active 2011 [facility] PO, Drug form: ERTAB, Daily, Start date: 07/06/11 9:00:00, Duration: 30 day, Stop date: 08/04/11 9:00:00 Zaroxolyn 5 mg, 2 tab, PO No Longer [place] Route: PO, Active 2011 [facility] Drug form: TAB, Daily, Start date: 07/06/11 9:00:00, Duration: 30 day, Stop date: 08/04/11 9:00:00 Prinivil 10 mg, 1 PO No Longer Gil tab, Route: Active 2011 [facility] PO, Drug form: TAB, Daily, Start date: 07/06/11 9:00:00, Duration: 30 day, Stop date: 08/04/11 9:00:00 nitroglycerin 2% 1 inch, TOP No Longer Gil topical ointment Route: TOP, [place] [facility] [place] OINT, TID, Start date: 07/06/11 6:00:00, Duration: 30 day, Stop date: 08/04/11 18:00:00 Astramorph PF 4 mg, 4 mL, IVP No Longer Gil Route: IVP, Active 2011 [facility] Drug form: INJ, Q2H, PRN Pain [...] No Longer Gil IV, Drug Active 2011 [facility] form: PDR/INJ, PRN, PRN Blood Glucose Results, Start date: 07/06/11 4:41:00, Duration: 30 day, Stop date: 08/05/11 5:40:00 Dextrose 50% in 50 mL, IVP No Longer Gil Water IV Route: IVP, 2011 [facility] PRN, Blood Glucose Results, Start date: 07/06/11 4:41:00, Duration: 30 day, Stop date: 08/05/11 5:40:00 NovoLog FlexPen 10 unit, 0.1 SUB-Q No Longer Gil H mL, Route: Active 2011 [facility] SUB-Q, Drug form: SOLN, Sliding Scale, PRN Blood Glucose Results, Start date: 07/06/11 4:41:00, Duration: 30 day, Stop date: 08/05/11 5:40:00 lactulose 20 gm, 30 PO No Longer Gil mL, Route: Active 2011 [facility] PO, Drug form: SYRP, Daily, PRN Constipation , Start date: 07/06/11 4:41:00, Duration: 30 day, Stop date: 08/05/11 4:40:00 Restoril 30 mg, 1 PO No Longer Gil cap, Route: Active 2011 [facility] PO, Drug form: CAP, Bedtime, PRN Sleep, Start date: 07/06/11 4:41:00, Duration: 30 day, Stop date: 08/05/11 4:40:00 Tylenol 650 mg, 2 PO No Longer Gil tab, Route: Active 2011 [facility] PO, Drug form: TAB, Q4H, PRN Pain/Fever, Start date: 07/06/11 4:40:00, Duration: 30 day, Stop date: 08/05/11 4:39:00 Sodium Chloride 250 mL, IVPB No Longer Gil 0.9% IV Route: IVPB, Active 2011 [facility] PRN, Line Flush, Start date: 07/06/11 2:53:00, Duration: 30 day, Stop date: 08/05/11 3:52:00 BD Normal Saline 10 mL, IVP No Longer Gil Flush Route: IVP, Active 2011 [facility] Drug Form: INJ, PRN, PRN Line Flush, Start date: 07/06/11 2:53:00, Duration: 30 day, Stop date: 08/05/11 3:52:00 morphine Sulfate 4 mg, Route: IVP No Longer [place] IVP, ONCE, Active 2011 [facility] Priority: STAT, Start date: 07/05/11 22:23:00, Stop date: 07/05/11 22:23:00 Niaspan ER 500 500 mg, 1 PO Active mg oral tablet, tab, PO, [address] [facility] [address] extended release BID, 60 tab, Substitution Allowed warfarin 3 mg 3 mg, 1 tab, PO Active oral tablet PO, Daily, 2011 [facility] 30 tab, Substitution Allowed, TAB ALPRAZOLam 0.5 mg, PO, PO Active PRN, PRN, 2011 [facility] anxiety, Substitution Allowed promethazine 25 25 mg, 1 PO Active mg oral tablet tab, PO, [place] Q12H, PRN, 15 tab, Nausea, Substitution Allowed metolazone 5 mg 5 mg, 1 tab, PO Active oral tablet PO, Daily, 2011 [facility] 30 tab, Substitution Allowed, TAB glyBURIDE 2.5 mg 2.5 mg, 1 PO Active oral tablet tab, PO, 2011 [facility] TID, 30 tab, Substitution Allowed, TAB nitroglycerin 2% 1 inch, TOP No Longer [place] ointment Route: TOP, Active 2011 [facility] Drug Form: OINT, ONCE, STAT, Start date: 07/05/11 21:43:00, Stop date: 07/05/11 21:43:00 nitroglycerin 0.4 mg, 1 SL No Longer [facility] tab, Route: Active 2011 [facility], Drug form: TAB, Q5Min, PRN Chest Pain, (Hold if SBP < = 90 mmHg or if < = 100mmHg with symptomatic dizziness), Start date: 07/05/11 21:43:00, Duration: 3 doses or times, Stop date: Limited # of times aspirin 81 mg 81 mg, 1 PO No Longer [place] tablet, chewable tab, Route: [place] [facility] [place], Drug form: CHEWTAB, ONCE, Priority: STAT, Start date: 07/05/11 21:43:00, Stop date: 07/05/11 21:43:00 Saline Flush 5 ml, Route: IVP No Longer [place] 0.9% IVP, Drug Active 2011 [facility] Form: INJ, PRN, PRN Line Flush, Start date: 07/05/11 21:43:00, Duration: 24 hr, Stop date: 07/06/11 21:42:00 Coumadin 10 mg, 1 PO No Longer [place] tab, Route: Active 2010 [facility] PO, Drug form: TAB, ONCE, Start date: 05/05/11 17:00:00, Stop date: 05/05/11 17:00:00 Coumadin 10 mg, 1 PO No Longer [place] tab, Route: Active 2010 [facility] PO, Drug form: TAB, ONCE, Start date: 05/05/11 14:58:00, Stop date: 05/05/11 14:58:00 Coumadin 10 mg, 1 PO No Longer Odom tab, Route: Active 2010 [facility] PO, Drug form: TAB, ONCE, Start date: 05/04/11 17:00:00, Stop date: 05/04/11 17:00:00 Coreg 3.125 mg, 1 PO No Longer Melo tab, Route: Active 2010 [facility] PO, Drug form: TAB, BID, Start date: 05/04/11 17:00:00, Duration: 30 day, Stop date: 06/03/11 9:00:00 Coumadin 10 mg, 1 PO No Longer O[place] tab, Route: Active 2010 [facility] PO, Drug form: TAB, ONCE, Start date: 05/03/11 17:00:00, Stop date: 05/03/11 17:00:00 Carafate 1 gm, 1 tab, PO No Longer Cat[place] Route: PO, Active 2010 [facility] Drug form: TAB, BID, Start date: 05/02/11 17:00:00, Duration: 30 day, Stop date: 06/01/11 9:00:00 Coreg 3.125 mg, 1 PO No Longer [place] tab, Route: Active 2010 [facility] PO, Drug form: TAB, BID, Start date: 05/02/11 17:00:00, Duration: 30 day, Stop date: 06/01/11 9:00:00 Coumadin 10 mg, 1 PO No Longer [place] tab, Route: Active 2010 [facility] PO, Drug form: TAB, ONCE, Start date: 05/02/11 17:00:00, Stop date: 05/02/11 17:00:00 Coumadin 10 mg, 1 PO No Longer [place] tab, Route: Active 2010 [facility] PO, Drug form: TAB, ONCE, Start date: 05/01/11 17:00:00, Stop date: 05/01/11 17:00:00 Coumadin 2.5 mg, 1 PO No Longer Melo tab, Route: Active 2010 [facility] PO, Drug form: TAB, ONCE, Start date: 04/30/11 17:00:00, Stop date: 04/30/11 17:00:00 Lovenox 80 mg, 0.8 SUB-Q No Longer Hughes mL, Route: Active 2010 [facility] SUB-Q, Drug form: INJ, [id number], Start date: 04/30/11 8:00:00, Duration: 30 day, Stop date: 05/29/11 20:00:00 Zofran 2 mg, 1 mL, IVP No Longer Melo Route: IVP, Active 2010 [facility] Drug form: INJ, Q8H, PRN Nausea, Start date: 04/29/11 14:35:00, Duration: 30 day, Stop date: 05/29/11 14:34:00 NovoLog FlexPen 5 unit, 0.05 SUB-Q No Longer Justin 04/29[facility] H mL, Route: Active 2010 [facility] SUB-Q, Drug form: SOLN, Sliding Scale, PRN Blood Glucose Results, Start date: 04/29/11 13:22:00, Duration: 30 day, Stop date: 05/29/11 13:21:00 glucagon 1 mg, Route: IV No Longer Justin IV, Drug Active 2010 [facility] form: PDR/INJ, PRN, PRN Blood Glucose Results, Start date: 04/29/11 13:22:00, Duration: 30 day, Stop date: 05/29/11 13:21:00 Dextrose 50% in 50 mL, IVP No Longer Odom Water IV Route: IVP, Active 2010 [facility] PRN, Blood Glucose Results, Start date: 04/29/11 13:22:00, Duration: 30 day, Stop date: 05/29/11 13:21:00 Sodium Chloride 250 mL, IVPB No Longer Justin 0.9% IV Route: IVPB, Active 2010 [facility] PRN, Line Flush, Start date: 04/29/11 13:14:00, Duration: 30 day, Stop date: 05/29/11 13:13:00 BD Normal Saline 10 mL, IVP No Longer Justin Flush Route: IVP, Active 2010 [facility] Drug Form: INJ, PRN, PRN Line Flush, Start date: 04/29/11 13:13:00, Duration: 30 day, Stop date: 05/29/11 13:12:00 Coumadin 2.5 mg, 1 PO No Longer Odom tab, Route: Active 2010 [facility] PO, Drug form: TAB, Bedtime, Start date: 04/28/11 21:00:00, Duration: 30 day, Stop date: 05/27/11 21:00:00 Lovenox 80 mg, 0.8 SUB-Q No Longer Odom 04/29/ MH mL, Route: Active 2010 [facility] SUB-Q, Drug form: INJ, [id number], Start date: 04/28/11 20:00:00, Duration: 30 day, Stop date: 05/28/11 8:00:00 Protonix 40 mg, 1 PO No Longer Melo MH tab, Route: Active 2010 [facility] PO, Drug form: ECTAB, Before Dinner, Start date: 04/28/11 16:30:00, Duration: 30 day, Stop date: 05/27/11 16:30:00 Betapace 80 mg, 1 PO No Longer O[place] tab, Route: Active 2010 [facility] PO, Drug form: TAB, BID, Start date: 04/28/11 10:52:00, Duration: 30 day, Stop date: 05/28/11 9:00:00 Coreg 6.25 mg, 1 PO No Longer Melo MH tab, Route: Active 2010 [facility] PO, Drug form: TAB, Q12H, Start date: 04/28/11 9:00:00, Duration: 30 day, Stop date: 05/27/11 21:00:00 Zaroxolyn 5 mg, 2 tab, PO No Longer Melo MH Route: PO, Active 2010 [facility] Drug form: TAB, Daily, Start date: 04/28/11 9:00:00, Duration: 30 day, Stop date: 05/27/11 9:00:00 Prinivil 10 mg, 1 PO No Longer Melo MH tab, Route: Active 2010 [facility] PO, Drug form: TAB, Q12H, Start date: 04/28/11 9:00:00, Duration: 30 day, Stop date: 05/27/11 21:00:00 Lasix 40 mg, 1 PO No Longer Melo MH tab, Route: Active 2010 [facility] PO, Drug form: TAB, Daily, Start date: 04/28/11 9:00:00, Duration: 30 day, Stop date: 05/27/11 9:00:00 Xanax 0.5 mg, 1 PO No Longer Melo tab, Route: Active 2010 [facility] PO, Drug form: TAB, Daily, Start date: 04/28/11 9:00:00, Duration: 30 day, Stop date: 05/27/11 9:00:00 K-Dur 10 10 mEq, 1 PO No Longer Melo tab, Route: Active 2010 [facility] PO, Drug form: ERTAB, Daily, Start date: 04/28/11 9:00:00, Duration: 30 day, Stop date: 05/27/11 9:00:00 Neurontin 600 mg, 2 PO No Longer Melo cap, Route: Active 2010 [facility] PO, Drug form: CAP, TID, Start date: 04/28/11 9:00:00, Duration: 30 day, Stop date: 05/27/11 17:00:00 morphine Sulfate 2 mg, 0.4 IV No Longer Odom mL, Route: Active 2010 [facility] IV, Drug form: INJ, ONCE, Start date: 04/28/11 7:31:00, Stop date: 04/28/11 7:31:00 morphine Sulfate 2 mg, 0.4 IV No Longer Melo mL, Route: Active 2010 [facility] IV, Drug form: INJ, ONCE, Start date: 04/28/11 4:44:00, Stop date: 04/28/11 4:44:00 Phenergan 25 mg, 1 PO No Longer Melo tab, Route: Active 2010 [facility] PO, Drug form: TAB, Q6H, PRN [...] Longer Melo 04/28/ mL, Route: Active 2010 [facility] SUB-Q, Drug form: INJ, [id number], Start date: 04/28/11 1:00:00, Duration: 30 day, Stop date: 05/27/11 13:00:00 diltiazem 100 mg 100 mL, IV No Longer Melo + Sodium Rate: Active 2010 [facility] Chloride 0.9% IV titrate, 100 mL Route: IV, Total Volume: 100, Start date: 04/28/11 0:36:00, Duration: 30 day, Stop date: 05/28/11 0:35:00 glucagon 1 mg, Route: IV No Longer [facility] IV, Drug Active 2010 [facility] form: PDR/INJ, PRN, PRN Blood Glucose Results, Start date: 04/28/11 0:35:00, Duration: 30 day, Stop date: 05/28/11 0:34:00 Dextrose 50% in Route: IVP, IVP No Longer [facility] Water IV PRN, Blood Active 2010 [facility] Glucose Results, Start date: 04/28/11 0:35:00, Duration: 30 day, Stop date: 05/28/11 0:34:00 NovoLog FlexPen 10 unit, 0.1 SUB-Q No Longer Odom 04/28/ M H mL, Route: Active 2010 [facility] SUB-Q, Drug form: SOLN, Sliding Scale, PRN Blood Glucose Results, Start date: 04/28/11 0:35:00, Duration: 30 day, Stop date: 05/28/11 0:34:00 Avelox 400 mg 400 mg, 1 PO No Longer Hines Sug ar oral tablet tab, Route: Active 2010 PO, Drug form: TAB, [id number], Priority: NOW, Start date: 02/17/11 10:36:00, Duration: 30 day, Stop date: 03/18/11 10:36:00 Avelox 400 mg 400 mg, 1 PO Active Hines Sugar oral tablet tab, PO, 2010 Daily, 7 tab, Substitution Allowed, TAB Protonix 40 mg, 1 PO No Longer Hines 10/11/ MH Sugar tab, Route: Active 2010 [place] PO, Drug form: ECTAB, Before Breakfast, Start date: 02/17/11 7:30:00, Duration: 30 day, Stop date: 03/18/11 7:30:00 azithromycin 500 500 mg, 2 PO No Longer Hines 02/17/ MH Sugar mg oral tablet tab, Route: Active 2010 [facility] PO, Drug form: TAB, Daily, Start [...] Elvia 02/17/ MH Sugar mL, Route: 2010 [facility] IM, Drug form: INJ, Q6H, PRN Pain, Start date: 02/16/11 21:03:00, Duration: 30 day, Stop date: 03/18/11 21:02:00 hydrALAZINE 10 mg, 0.5 IVP No Longer Hines 02/16/ MH Suga r mL, Route: 2010 IVP, Drug form: INJ, Q4H, PRN Elevated BP, Start date: 02/16/11 11:43:00, Duration: 30 day, Stop date: 03/18/11 11:42:00 Lopressor 5 mg, 5 mL, IVP No Longer Hines 10// MH Sugar Route: IVP, Active 2010 Drug form: INJ, Q6H, PRN Elevated BP, Start date: 02/16/11 11:43:00, Duration: 30 day, Stop date: 03/18/11 11:42:00 Visipaque 48,000 mg, IV No Longer Hines 10/ MH Sugar 150 mL, Active 2010 Route: IV, Drug form: INJ, ONCE, Start date: 02/16/11 9:05:00, Stop date: 02/16/11 9:05:00 potassium 10 mEq, 1 PO No Longer Hines 10/ MH Sugar chloride tab, Route: Active 2010 PO, Drug form: ERTAB, Daily, Start date: 02/16/11 9:00:00, Duration: 30 day, Stop date: 03/17/11 9:00:00 glyBURIDE 5 mg, 1 tab, PO No Longer Hines Suga r Route: PO, Active 2010 Drug form: TAB, Daily, Start date: 02/16/11 9:00:00, Duration: 30 day, Stop date: 03/17/11 9:00:00 Lasix 40 mg oral 40 mg, 2 PO No Longer Hines S ugar tablet tab, Route: Active 2010 PO, Drug form: TAB, Daily, Start date: 02/16/11 9:00:00, Duration: 30 day, Stop date: 03/17/11 9:00:00 morphine Sulfate 2 mg, 0.4 IVP No Longer Elvia Sugar mL, Route: Active 2010 IVP, Drug form: INJ, Q3H, PRN Pain, Start date: 02/15/11 23:21:00, Duration: 30 day, Stop date: 03/17/11 23:20:00 predniSONE 50 mg, PO No Longer Hines Sugar Route: PO, Active 2010 Drug form: TAB, BID, Start date: 02/15/11 17:00:00, Duration: 30 day, Stop date: 03/17/11 9:00:00 gabapentin 600 600 mg, 2 PO No Longer Hines Blake gar mg oral tablet cap, Route: Active 2010 PO, Drug form: CAP, TID, Start date: 02/15/11 13:00:00, Duration: 30 day, Stop date: 03/17/11 9:00:00 aspirin 81 mg 1 tab, PO, PO Active Suga r tablet, enteric Daily, 0 2010 coated tab, Substitution Allowed, ECTAB glyBURIDE 5 mg 1 tab, PO, PO Active Hines Sug ar oral tablet Daily, 30 2010 tab, Substitution Allowed, TAB doxycycline 1 cap, PO, PO No Longer Suga r hyclate 100 mg BID, cap, Active 2010 oral capsule Substitution Allowed predniSONE 50 mg 1 tab, PO, PO Active Hines S ugar oral tablet BID, tab, 2010 Substitution Allowed, TAB gabapentin 600 1 tab, PO, PO Active Hines Sug ar mg oral tablet TID, 270 2010 tab, Substitution Allowed Klor-Con M10 1 tab, PO, PO Active Hines Sugar oral tablet, Daily, tab, 2010 extended release Substitution Allowed, ERTAB lisinopril 10 mg 1 tab, PO, PO Active S ugar oral tablet BID, 30 tab, 2010 Substitution Allowed, TAB Lasix 40 mg oral 1 tab, PO, PO Active Hines S ugar tablet Daily, 30 2010 tab, [...] cefepime 1 gm, Route: IVPB No Longer Hines Sugar IVPB, Active 2010 [id number], Start date: 02/15/11 11:00:00, Duration: 30 day, [...] Longer Elvia Sugar mL, Route: Active 2010 [facility] SUB-Q, Drug form: INJ, Daily, Start date: 02/15/11 9:00:00, Duration: 30 day, Stop date: 03/16/11 9:00:00 predniSONE 40 mg, 2 PO No Longer Melo Sugar tab, Route: Active 2010 [facility] PO, Drug form: TAB, Daily, Start date: 02/15/11 9:00:00, Stop date: 03/16/11 9:00:00 lisinopril 10 mg, 2 PO No Longer Elvia Sugar tab, Route: Active 2010 [facility] PO, Drug form: TAB, BID, Start date: 02/15/11 9:00:00, Duration: 30 day, Stop date: 03/16/11 17:00:00 DuoNeb 3 ml, Route: INHALATION No Longer Elvia Sug ar inhalation INHALATION, Active 2010 [facility] solution Drug Form: SOLN, Q6H, Start date: 02/15/11 0:00:00, Duration: 30 day, Stop date: 03/16/11 18:00:00 Neurontin 600 mg, 2 PO No Longer Hines Sugar cap, Route: Active 2010 PO, Drug form: CAP, Q8H, Start date: 02/14/11 23:40:00, Duration: 30 day, Stop date: 03/16/11 16:00:00 ceftriaxone 1 gm, Route: IVPB No Longer Melo Blake gar IVPB, Active 2010 [id number], Start date: 02/14/11 23:00:00, Duration: 30 day, Stop date: 03/15/11 23:00:00 azithromycin 500 mg, IVPB No Longer Elvia Sugar Route: IVPB, Active 2010 [id number], Start date: 02/14/11 23:00:00, Duration: 30 day, [...] Longer Elvia Sugar IM, Drug Active 2010 [facility] form: PDR/INJ, PRN, PRN Blood Glucose [...] Sugar 13-valent 8 gluteus Land, vaccine medius [facility] influenza virus Left completed [facility] O PID Sugar vaccine, 8 gluteus [place], inactivated medius [facility] t Results Order Name Results Value Reference Date Interpretation Comments Didi rce Range CHEM PANEL Calcium Lvl 8.3 8.5 - 10.5 12/01 [facility] CHEM PANEL AGAP 13.2 10.0 - 12/01 .0 [facility] CHEM PANEL Potassium 4.2 3.5 - 5.1 12/01 Lvl [facility] CHEM PANEL Chloride Lvl 104 95 - 109 12/01 [facility] CHEM PANEL CO2 29 24 - 32 12/01 [facility] CHEM PANEL Sodium Lvl 142 135 - 145 12/01 [facility] CHEM PANEL Creatinine 2.10 0.50 - 12/01 Lvl 1.40 [facility] CHEM PANEL BUN 26 7 - 22 12/01 [facility] CHEM PANEL eGFR 33 12/01 Result Comment: [facility] eGFR is calculated using the CKD-EPI [...] Glucose Lvl 104 70 - 99 12/01 [facility] HEMATOLOGY Basophils 0.8 0.0 - 1.0 12/01 [facility] HEMATOLOGY Eosinophils 4.6 0.0 - 4.0 12/01 [facility] HEMATOLOGY Segs 58.6 45.0 - 12/01 MH 75.0 [facility] HEMATOLOGY Lymphocytes 31.1 20.0 - 12/01 MH 40.0 [facility] HEMATOLOGY Monocytes 4.9 2.0 - 12.0 12/01 [facility] HEMATOLOGY Neutrophils 2.5 1.5 - 8.1 12/01 MH # /2018 [facility] HEMATOLOGY Lymphocytes 1.3 1.0 - 5.5 12/01 # /2018 [facility] HEMATOLOGY Eosinophils 0.2 0.0 - 0.5 12/01 MH # /2018 [facility] HEMATOLOGY Monocytes # 0.2 0.0 - 0.8 12/01 [facility] HEMATOLOGY Hct 33.4 42.0 - 12/01 MH 54.0 [facility] HEMATOLOGY MCV 94.2 80.0 - 12/01 MH 94.0 [facility] HEMATOLOGY RBC 3.54 4.70 - 12/01 MH 6.10 [facility] HEMATOLOGY MCH 30.5 27.0 - 12/01 MH 31.0 [facility] HEMATOLOGY WBC 4.2 3.7 - 10.4 12/01 [facility] Hgb 10.8 14.0 - 12/01 MH 18.0 [facility] RDW 16.8 11.5 - 12/01 MH 14. [facility] HEMATOLOGY Platelet 77 133 - 450 12/01 [facility] HEMATOLOGY MPV 8.3 7.4 - 10.4 12/01 [facility] HEMATOLOGY MCHC 32.3 32.0 - 12/01 MH 36.0 /2018 [facility] CARDIAC Troponin-I 0.18 0.00 - 11/30 ENZYMES 0.40 [facility] CARDIAC Troponin-I 0.21 0.00 - 11/30 ENZYMES 0.40 [facility] CARDIAC BNP 384 <=100 11/30 ENZYMES pg/mL /2018 [facility] CHEM PANEL Phosphorus 2.5 2.5 - 4.5 11/30 [facility] CHEM PANEL Magnesium 2.0 1.8 - 2.4 11/30 Lvl [facility] CHEM PANEL eGFR 35 11/30 Result Comment: [facility] eGFR is calculated using the CKD-EPI [...] Alk Phos 68 39 - 136 11/30 [facility] CHEM PANEL Bili Total 0.6 0.2 - 1.3 11/30 [facility] CHEM PANEL AST 13 0 - 37 11/30 [facility] CHEM PANEL Potassium 3.9 3.5 - 5.1 11/30 Lvl [facility] CHEM PANEL CO2 27 24 - 32 11/30 [facility] CHEM PANEL Calcium Lvl 8.2 8.5 - 10.5 11/30 [facility] CHEM PANEL Chloride Lvl 105 95 - 109 11/30 [facility] CHEM PANEL Total 7.8 6.4 - 8.4 07/24 MH Protein [facility] CHEM PANEL Sodium Lvl 138 135 - 145 11/30 [facility] CHEM PANEL Creatinine 2.00 0.50 - 11/30 MH Lvl 1.40 /2019 [facility] CHEM PANEL Albumin Lvl 3.1 3.5 - 5.0 11/30 [facility] CHEM PANEL Glucose Lvl 106 70 - 99 11/30 [facility] CHEM PANEL BUN 30 7 - 22 11/30 [facility] CHEM PANEL ALT 14 0 - 65 11/30 [facility] CHEM PANEL A/G Ratio 0.7 0.7 - 1.6 11/30 [facility] CHEM PANEL Globulin 4.7 2.7 - 4.2 11/30 [facility] CHEM PANEL AGAP 9.9 10.0 - 11/30 MH 20.0 [facility] CHEM PANEL B/C Ratio 15 6 - 25 11/30 [facility] HEMATOLOGY MCHC 32.1 32.0 - 11/30 MH 36.0 [facility] HEMATOLOGY RDW 17.8 11.5 - 11/30 MH 14.5 [facility] HEMATOLOGY MCH 30.7 27.0 - 11/30 MH 31.0 [facility] HEMATOLOGY RBC 3.46 4.70 - 11/30 MH 6.10 [facility] HEMATOLOGY WBC 4.9 3.7 - 10.4 11/30 /2018 [facility] HEMATOLOGY MPV 8.2 7.4 - 10.4 11/30 /2018 [facility] HEMATOLOGY Platelet 91 133 - 450 11/30 /2018 [facility] HEMATOLOGY MCV 95.7 80.0 - 11/30 MH 94.0 /2018 [facility] HEMATOLOGY Hgb 10.6 14.0 - 11/30 MH 18.0 [facility] HEMATOLOGY Hct 33.1 42.0 - 11/30 MH 54.0 /2018 [facility] HEMATOLOGY Neutrophils 3.0 1.5 - 8.1 11/30 MH # /2018 [facility] HEMATOLOGY Lymphocytes 1.5 1.0 - 5.5 11/30 MH # /2018 [facility] HEMATOLOGY Monocytes # 0.2 0.0 - 0.8 11/30 [facility] HEMATOLOGY Eosinophils 0.2 0.0 - 0.5 11/30 MH # /2018 [facility] HEMATOLOGY Basophils # 0.0 0.0 - 0.2 11/30 [facility] HEMATOLOGY Segs 61.3 45.0 - 11/30 MH 75.0 /2018 [facility] HEMATOLOGY Lymphocytes 29.5 20.0 - 11/30 MH 40.0 /2019 [facility] HEMATOLOGY Eosinophils 4.4 0.0 - 4.0 11/30 [facility] HEMATOLOGY Basophils 0.5 0.0 - 1.0 11/30 [facility] HEMATOLOGY Monocytes 4.3 2.0 - 12.0 11/30 [facility] LIPIDS CHD Risk 1.75 4.00 - 11/30 MH 7.30 [facility] LIPIDS VLDL 14 11/30 [facility] LIPIDS LDL 24 <=99 mg/dL 11/30 (Calculated) [facility] LIPIDS Trig 71 <=149 11/30 MH mg/dL [facility] LIPIDS HDL 51 >=61 mg/dL 11/30 [facility] LIPIDS Chol 89 <=199 11/30 mg/dL [facility] SPECIAL Hgb A1C 6.8 <=5.6 % 11/30 CHEMISTRY [facility] REFERENCE Misc Lab See 03/29 Result LAB Comment Comment: [facility] RESULTS Reference lab results scanned in [employer]. Results displayed in [id number]-Outside Lab Documents (Imaged) under date/time results were scanned. Report sent for scanning on 04/06/2018 16:14. REFERENCE Test Name global 03/29 LAB fish, [facility] RESULTS enriched HEMATOLOGY MCH 30.1 27.0 - 03/29 31.0 [facility] HEMATOLOGY MCHC 32.4 32.0 - 03/29 MH 36.0 [facility] HEMATOLOGY MCV 92.8 80.0 - 03/29 94.0 [facility] HEMATOLOGY Hgb 11.5 14.0 - 03/29 MH 18.0 [facility] HEMATOLOGY Hct 35.6 42.0 - 03/29 MH 54.0 [facility] HEMATOLOGY RDW 18.2 11.5 - 03/29 MH 14.5 [facility] HEMATOLOGY MPV 9.8 7.4 - 10.4 03/29 [facility] HEMATOLOGY Platelet 113 133 - 450 03/29 [facility] HEMATOLOGY WBC 5.9 3.7 - 10.4 03/29 [facility] HEMATOLOGY RBC 3.84 4.70 - 03/29 MH 6.10 [facility] ELECTROLYT AGAP 10.6 10.0 - 03/29 ES 20.0 [facility] ELECTROLYT Glucose Lvl 103 70 - 99 11 [facility] ELECTROLYT eGFR 42 03/29 Result Comment: [facility] eGFR is calculated using the CKD-EPI [...] Calcium Lvl 7.9 8.5 - 10.5 03/29 [facility] ELECTROLYT CO2 26 24 - 32 03/29 [facility] ELECTROLYT Potassium 3.6 3.5 - 5.1 03/29 ES Lvl /2017 [facility] ELECTROLYT Sodium Lvl 142 135 - 145 03/29 [facility] ELECTROLYT Chloride Lvl 109 95 - 109 03/29 [facility] ELECTROLYT Creatinine 1.70 0.50 - 03/29 ES Lvl 1.40 [facility] ELECTROLYT BUN 20 7 - 22 03/29 [facility] HEMATOLOGY PT 17.7 12.0 - 03/29 14.7 [facility] HEMATOLOGY INR 1.45 0.85 - 03/29 1.17 [facility] LIPIDS CHD Risk 1.69 4.00 - 03/29 7.30 [facility] LIPIDS VLDL 13 03/29 [facility] LIPIDS LDL 16 <=99 mg/dL 03/29 (Calculated) [facility] LIPIDS Chol 71 <=199 03/29 mg/dL [facility] LIPIDS HDL 42 >=61 mg/dL 03/29 [facility] LIPIDS Trig 66 <=149 03/29 mg/dL [facility] IMMUNOLOGY IgA Lvl 62.0 68.0 - 03/28 378.0 /2017 [facility] IMMUNOLOGY IgM Lvl 30.0 60.0 - 03/28 MH 263.0 /2017 [facility] IMMUNOLOGY IgG Lvl 2010 694 - 1618 03/28 MH /2017 [facility] IMMUNOLOGY Tot Prot 8 03/28 MH (UPE) /2017 [facility] IMMUNOLOGY Interp (UPE) Urine 03/28 MH protein /2017 [facility] electropho resis shows minimal proteinuri a. No monoclonal bands are identified ; however, evaluation is limited by the small amount of protein and the resulting lack of discernibl e bands on the electropho retic gel. Interpret ation performed at [facility]. IMMUNOLOGY Spec Type random, 03/28 MH (UPE) 100x /2017 [facility] CHEM PANEL Y-4-Ubcohuip 3.5 1.0 - 2.3 11 MH b /2017 [facility] IMMUNOLOGY Lambda Free 130.44 5.70 - 03/27 Light Chains 26.30 /2017 [facility] IMMUNOLOGY [place] Free 13.69 3.30 - 03/27 Light Chains 19.40 /2017 [facility] IMMUNOLOGY [place]/Lambda 0.10 0.26 - 03/27 Free Light 1.65 [facility] Chains Ratio IMMUNOLOGY Albumin 3.25 3.57 - 03/27 MH (SPE) 5.55 /2017 [facility] IMMUNOLOGY Alpha 2 Glob 0.78 0.45 - 03/27 MH 1.00 /2017 [facility] IMMUNOLOGY Alpha 1 Glob 0.32 0.18 - 03/27 MH 0.41 /2017 [facility] IMMUNOLOGY Beta Glob 0.61 0.50 - 03/27 MH 1.15 /2017 [facility] IMMUNOLOGY Tot Prot 7.0 6.4 - 8.4 03/27 MH (SPE) /2017 [facility] IMMUNOLOGY Gamma Glob 2.04 0.71 - 03/27 MH 1.57 [facility] IMMUNOLOGY SPE Interp Total 03/27 protein is /2017 [facility] within reference range; albumin is decreased. A monoclonal protein (1.79 g/dl) is present in the gamma globulin region. Serum and urine immunofixa tion studies are recommende d for further evaluation . Interpreta tion performed at [facility]. IMMUNOLOGY Alpha 1 % 4.6 2.8 - 4.9 03/27 [facility] IMMUNOLOGY Albumin % 46.4 55.8 - 03/27 MH 66.1 /2017 [facility] IMMUNOLOGY Beta % 8.7 7.8 - 13.7 03/27 [facility] IMMUNOLOGY Alpha 2 % 11.2 7.0 - 11.9 03/27 [facility] IMMUNOLOGY Gamma % 29.1 11.1 - 03/27 MH 18.7 /2017 [facility] CARDIAC BNP 171 <=100 03/27 ENZYMES pg/mL /2017 [facility] ELECTROLYT AGAP 10.7 10.0 - 03/27 MH ES 20.0 /2017 [facility] ELECTROLYT Calcium Lvl 7.5 8.5 - 10.5 03/27 ES [facility] ELECTROLYT CO2 26 24 - 32 03/27 ES [facility] ELECTROLYT BUN 22 7 - 22 03/27 ES [facility] ELECTROLYT Creatinine 1.60 0.50 - 03/27 MH ES Lvl 1.40 /2017 [facility] ELECTROLYT Chloride Lvl 108 95 - 109 03/27 ES [facility] ELECTROLYT Sodium Lvl 141 135 - 145 03/27 ES [facility] ELECTROLYT Potassium 3.7 3.5 - 5.1 03/27 ES Lvl /2017 [facility] ELECTROLYT eGFR 46 03/27 Result MH Comment: [facility] eGFR is calculated using the CKD-EPI [...] Lvl 87 70 - 99 03/27 ES [facility] HEMATOLOGY INR 2.09 0.85 - 03/27 MH 1. [facility] HEMATOLOGY PT 23.7 12.0 - 03/27 MH 14.7 [facility] URINE AND Occult Bld Positive Negative 03/26 STOOL Stl *ABN* /2017 [facility] (03/26/18 8:47 AM) CARDIAC BNP 258 <=100 03/26 ENZYMES pg/mL /2017 [facility] ELECTROLYT AGAP 9.5 10.0 - 03/26 ES 20.0 /2017 [facility] ELECTROLYT eGFR 40 03/26 Result Comment: [facility] eGFR is calculated using the CKD-EPI [...] Lvl 140 135 - 145 03/26 ES [facility] ELECTROLYT Chloride Lvl 105 95 - 109 03/26 ES [facility] ELECTROLYT Potassium 3.5 3.5 - 5.1 03/26 ES Lvl /2017 [facility] ELECTROLYT CO2 29 24 - 32 03/26 ES /2017 [facility] ELECTROLYT Calcium Lvl 7.6 8.5 - 10.5 03/26 ES [facility] ELECTROLYT Creatinine 1.80 0.50 - 03/26 ES Lvl 1.40 /2017 [facility] ELECTROLYT Glucose Lvl 103 70 - 99 03/26 ES /2017 [facility] ELECTROLYT BUN 25 7 - 22 03/26 ES /2017 [facility] HEMATOLOGY PT 27.1 12.0 - 03/26 14.7 /2017 [facility] HEMATOLOGY INR 2.48 0.85 - 03/26 1. [facility] HEMATOLOGY Retic Auto 1.7 0.5 - 1.5 03/26 [facility] HEMATOLOGY Basophils 0.2 0.0 - 1.0 03/26 [facility] HEMATOLOGY Lymphocytes 1.4 1.0 - 5.5 03/26 # /2017 [facility] HEMATOLOGY Neutrophils 3.5 1.5 - 8.1 [...] Platelet 88 133 - 450 03/26 /2017 [facility] HEMATOLOGY RDW 17.5 11. - 03/26 MH 14. [facility] HEMATOLOGY MPV 9.0 7.4 - 10.4 03/26 /2017 [facility] HEMATOLOGY WBC 5.3 3.7 - 10.4 03/26 /2017 [facility] HEMATOLOGY Hgb 11.6 14.0 - 03/26 MH 18.0 [facility] HEMATOLOGY RBC 3.81 4.70 - 03/26 MH 6. [facility] HEMATOLOGY MCV 91.8 80.0 - 03/26 MH 94.0 [facility] HEMATOLOGY Hct 35.0 42.0 - 03/26 MH 54.0 /2017 [facility] HEMATOLOGY RBC 3.78 4.70 - 12/ MH 6. [facility] HEMATOLOGY MPV 9.4 7.4 - 10.4 04/11 [facility] HEMATOLOGY Platelet 74 133 - 450 04/11 [facility] HEMATOLOGY RDW 16.3 11.5 - 04/11 [...] Monocytes 5.2 2.0 - 12.0 04/11 /2016 [facility] HEMATOLOGY Eosinophils 2.4 0.0 - 4.0 04/11 /2016 [facility] HEMATOLOGY Segs 58.5 45.0 - 04/11 75.0 [facility] HEMATOLOGY Lymphocytes 33.2 20.0 - 12/ MH 40.0 [facility] HEMATOLOGY Monocytes # 0.2 0.0 - 0.8 04/11 [facility] HEMATOLOGY Eosinophils 0.1 0.0 - 0.5 04/11 # /2016 [facility] HEMATOLOGY Segs-Bands # 2.4 1.5 - 8.1 04/11 [facility] HEMATOLOGY Lymphocytes 1.4 1.0 - 5.5 04/11 [facility] HEMATOLOGY Basophils 0.7 0.0 - 1.0 04/11 [facility] URINE AND Occult Bld Negative Negative 04/10 STOOL Stl (04/10/17 9:39 AM) [facility] HEMATOLOGY Eosinophils 0.1 0.0 - 0.5 04/10 /2016 [facility] HEMATOLOGY Monocytes # 0.2 0.0 - 0.8 04/10 [facility] HEMATOLOGY Lymphocytes 1.5 1.0 - 5.5 04/10 # [facility] HEMATOLOGY Segs-Bands # 2.3 1.5 - 8.1 04/10 [facility] HEMATOLOGY Basophils 0.7 0.0 - 1.0 04/10 [facility] HEMATOLOGY Eosinophils 2.6 0.0 - 4.0 04/10 [facility] HEMATOLOGY Monocytes 5.2 2.0 - 12.0 04/10 [facility] HEMATOLOGY Lymphocytes 35.9 20.0 - 04/10 40.0 [facility] HEMATOLOGY Segs 55.6 45.0 - 12 75.0 [facility] HEMATOLOGY Platelet 58 133 - 450 04/10 [facility] HEMATOLOGY MPV 9.1 7.4 - 10.4 04/10 [facility] HEMATOLOGY Hct 32.5 42.0 - 04/10 54.0 [facility] HEMATOLOGY MCHC 34.1 32.0 - 04/10 36.0 [facility] HEMATOLOGY RDW 16.2 11.5 - 04/10 14.5 [facility] HEMATOLOGY MCV 90.3 80.0 - 04/10 94.0 [facility] HEMATOLOGY MCH 30.8 27.0 - 12/02 31.0 /2017 [facility] HEMATOLOGY Hgb 11.1 14.0 - 04/10 18.0 /2016 [facility] HEMATOLOGY WBC 4.2 3.7 - 10.4 04/10 [facility] HEMATOLOGY RBC 3.60 4.70 - 12 6.10 /2016 [facility] ANEMIA Vitamin B12 529 254 - 1320 04/09 STUDY Lvl [facility] ANEMIA Folate Lvl 7.0 >=3.0 04/09 STUDY ng/mL /2016 [facility] ANEMIA Ferritin Lvl 316 22 - 275 04/09 STUDY /2016 [facility] ANEMIA % Satur Fe 22 12 - 57 04/09 STUDY /2016 [facility] ANEMIA UIBC 176 110 - 370 04/09 STUDY /2016 [facility] ANEMIA TIBC 226 228 - 428 04/09 STUDY [facility] ANEMIA Iron 50 45 - 160 04/09 STUDY [facility] CHEM PANEL LDH 301 98 - 192 04/09 [facility] CHEM PANEL Bili Total 0.7 0.2 - 1.3 04/09 [facility] CHEM PANEL Bili Direct 0.3 0.0 - 0.3 04/09 [facility] CHEM PANEL Bili 0.4 0.0 - 1.0 04/09 Indirect [facility] HEMATOLOGY PB Smear Mild 04/09 Path anemia /2016 [facility] with normochrom ic, normocytic indices. Moderate thrombocyt openia. No significan t microangio pathic changes identified . Clinical and laboratory correlatio n required. HEMATOLOGY Retic Auto 0.8 0.5 - 1.5 04/09 [facility] HEMATOLOGY PTT 28.0 22.9 - 04/09 35.8 /2016 [facility] HEMATOLOGY PT 19.1 12.0 - 04/09 14.7 /2016 [facility] HEMATOLOGY INR 1.59 0.85 - 04/09 1.17 /2016 [facility] HEMATOLOGY FSP >=20 ug/ml <5 ug/ml 04/09 [facility] HEMATOLOGY Fibrinogen 436 230 - 510 04/09 Lvl [facility] HEMATOLOGY D-Dimer 9.69 04/09 [facility] IMMUNOLOGY Haptoglobin 25 16 - 200 04/09 [facility] URINE AND UA <=1.0 0.1 - 1.0 04/09 STOOL Urobilinogen /2016 [facility] URINE AND UA Color Yellow 04/09 STOOL /2016 [facility] URINE AND UA Hyal Cast 7 0 - 2 04/09 STOOL [facility] URINE AND UA Nitrite Negative Negative 04/09 STOOL (04/09/17 9:14 AM) /2016 [facility] est URINE AND UA Blood Negative Negative 04/09 STOOL (04/09/17 9:14 AM) [facility] URINE AND UA Leuk Est Negative Negative 04/09 STOOL (04/09/17 9:14 AM) [facility] URINE AND UA Ketones Negative Negative 04/09 STOOL mg/dL mg/dL [facility] URINE AND UA Turbidity Clear Clear 04/09 STOOL (04/09/17 9:14 AM) [facility] URINE AND UA Spec Grav 1.010 <=1.030 04/09 STOOL [facility] URINE AND UA Protein Negative Negative 04/09 STOOL mg/dL mg/dL [facility] URINE AND UA Glucose Negative Negative 04/09 STOOL mg/dL mg/dL [facility] URINE AND UA pH 6.0 5.0 - 8.0 04/09 STOOL [facility] URINE AND UA WBC 1 0 - 5 04/09 STOOL [facility] URINE AND UA Sq Epi Occasional Few /LPF 04/09 STOOL /LPF /2016 [facility] URINE AND UA Mucus Few /LPF None Seen 04/09 STOOL /LPF [facility] URINE AND UA RBC 1 0 - 2 04/09 STOOL [facility] URINE AND UA Bili Negative Negative 04/09 STOOL *NA* /2016 [facility] (04/09/17 9:14 AM) CARDIAC BNP 213 <=100 04/09 ENZYMES pg/mL [facility] CARDIAC CK MB 3.7 0.5 - 3.6 04/09 ENZYMES /2016 [facility] CARDIAC Troponin-I 0.18 0.00 - 04/09 ENZYMES 0.40 [facility] CHEM PANEL Ammonia <10.0 <=45.0 04/09 uMol/L [facility] ELECTROLYT AGAP 11.4 10.0 - 04/09 ES 20.0 [facility] ELECTROLYT eGFR 28 04/09 Result ES Comment: [facility] eGFR is calculated using the CKD-EPI [...] ELECTROLYT BUN 23 7 - 22 04/09 [facility] ELECTROLYT Creatinine 2.40 0.50 - 04/09 ES Lvl 1.40 [facility] ELECTROLYT Sodium Lvl 134 135 - 145 04/09 [facility] ELECTROLYT Potassium 3.4 3.5 - 5.1 04/09 ES Lvl /2016 [facility] ELECTROLYT Chloride Lvl 100 95 - 109 04/09 [facility] ELECTROLYT CO2 26 24 - 32 04/09 [facility] ELECTROLYT Calcium Lvl 8.1 8.5 - 10.5 04/09 [facility] ELECTROLYT Glucose Lvl 118 70 - 99 04/09 [facility] HEMATOLOGY Platelet 61 133 - 450 04/09 [facility] HEMATOLOGY RDW 16.6 11.5 - 04/09 14.5 [facility] HEMATOLOGY MCHC 33.3 32.0 - 04/09 36.0 [facility] HEMATOLOGY MCV 91.2 80.0 - 04/09 94.0 [facility] HEMATOLOGY MCH 30.4 27.0 - 04/09 MH 31.0 [facility] HEMATOLOGY WBC 4.3 3.7 - 10.4 04/09 [facility] HEMATOLOGY RBC 3.84 4.70 - 04/09 MH 6.10 [facility] HEMATOLOGY Hgb 11.7 14.0 - 04/09 18.0 [facility] HEMATOLOGY MPV 9.5 7.4 - 10.4 04/09 [facility] HEMATOLOGY Hct 35.0 42.0 - 04/09 MH 54.0 /2016 [facility] HEMATOLOGY PTT 26.7 22.9 - 04/09 MH 35.8 [facility] HEMATOLOGY INR 1.67 0.85 - 12 MH 1.17 /2016 [facility] HEMATOLOGY PT 19.8 12.0 - 04/09 [...] Basophils # 0.0 0.0 - 0.2 04/09 [facility] HEMATOLOGY Segs-Bands # 3.0 1.5 - 8.1 04/09 [facility] HEMATOLOGY Eosinophils 0.0 0.0 - 0.5 04/09 MH /2016 [facility] HEMATOLOGY MPV 10.7 7.4 - 10.4 03/23 [facility] HEMATOLOGY MCV 92.8 80.0 - 03/23 94.0 /2016 [facility] HEMATOLOGY MCH 30.5 27.0 - 03/23 31.0 [facility] HEMATOLOGY Hgb 12.3 14.0 - 03/23 18.0 [facility] HEMATOLOGY Hct 37.5 42.0 - 03/23 54.0 /2016 [facility] HEMATOLOGY MCHC 32.9 32.0 - 03/23 36.0 /2016 [facility] HEMATOLOGY Platelet 41 133 - 450 03/23 [facility] HEMATOLOGY RDW 16.7 11.5 - 03/23 14.5 /2016 [facility] HEMATOLOGY WBC 6.8 3.7 - 10.4 03/23 [facility] HEMATOLOGY RBC 4.04 4.70 - 03/23 6.10 [facility] HEMATOLOGY Basophils 0.1 0.0 - 1.0 03/23 [facility] HEMATOLOGY Monocytes 3.2 2.0 - 12.0 03/23 [facility] HEMATOLOGY Eosinophils 1.3 0.0 - 4.0 03/23 [facility] HEMATOLOGY Segs 73.3 45.0 - 03/23 75.0 [facility] [facility] HEM[facility]Y Lymphocytes 22.1 20.0 - 11 MH 40.0 /2017 [facility] HEMATOLOGY Basophils # 0.0 0.0 - 0.2 03/23 [facility] HEMATOLOGY Monocytes # 0.2 0.0 - 0.8 03/23 [facility] HEMATOLOGY Eosinophils 0.1 0.0 - 0.5 03/23 # /2016 [facility] HEMATOLOGY Segs-Bands # 5.0 1.5 - 8.1 03/23 [facility] HEMATOLOGY Lymphocytes 1.5 1.0 - 5.5 03/23 [facility] ELECTROLYT AGAP 15.8 10.0 - 03/22 ES 20.0 /2016 [facility] ELECTROLYT Calcium Lvl 8.8 8.5 - 10.5 03/22 ES [facility] ELECTROLYT eGFR 26 03/22 Comment: [facility] eGFR is calculated using the CKD-EPI [...] Glucose Lvl 102 70 - 99 03/22 [facility] ELECTROLYT BUN 40 7 - 22 03/22 [facility] ELECTROLYT Chloride Lvl 96 95 - 109 03/22 [facility] ELECTROLYT Potassium 3.8 3.5 - 5.1 03/22 ES Lvl [facility] ELECTROLYT CO2 25 24 - 32 03/22 [facility] ELECTROLYT Sodium Lvl 133 135 - 145 03/22 [facility] ELECTROLYT Creatinine 2.60 0.50 - 03/22 ES Lvl 1.40 [facility] HEMATOLOGY Monocytes # 0.3 0.0 - 0.8 03/22 [facility] HEMATOLOGY Lymphocytes 1.2 1.0 - 5.5 03/22 MH # /2016 [facility] HEMATOLOGY Eosinophils 0.1 0.0 - 0.5 03/22 MH # /2016 [facility] HEMATOLOGY Segs-Bands # 3.7 1.5 - 8.1 03/22 [facility] HEMATOLOGY Segs 69.6 45.0 - 03/22 MH 75.0 [facility] HEMATOLOGY Lymphocytes 23.0 20.0 - 03/22 MH 40.0 /2016 [facility] HEMATOLOGY Eosinophils 1.9 0.0 - 4.0 03/22 [facility] HEMATOLOGY Monocytes 4.9 2.0 - 12.0 03/22 [facility] HEMATOLOGY Basophils 0.6 0.0 - 1.0 03/22 [facility] HEMATOLOGY MCHC 33.2 32.0 - 03/22 MH 36.0 [facility] HEMATOLOGY MCV 92.0 80.0 - 03/22 94.0 [facility] HEMATOLOGY Hgb 11.9 14.0 - 03/22 MH 18.0 [facility] MCH 30.5 27.0 - 03/22 MH 31.0 [facility] HEMATOLOGY Hct 35.7 42.0 - 03/22 MH 54.0 [facility] HEMATOLOGY MPV 8.9 7.4 - 10.4 03/22 [facility] HEMATOLOGY Platelet 58 133 - 450 03/22 [facility] HEMATOLOGY RDW 16.4 11.5 - 03/22 MH 14.5 [facility] HEMATOLOGY RBC 3.88 4.70 - 03/22 6.10 [facility] HEMATOLOGY WBC 5.3 3.7 - 10.4 03/22 [facility] ELECTROLYT AGAP 14.5 10.0 - 03/21 ES 20.0 [facility] ELECTROLYT eGFR 22 03/21 Result ES Comment: [facility] eGFR is calculated using the CKD-EPI [...] 0.50 - 11 ES Lvl 1.40 /2016 [facility] ELECTROLYT BUN 44 7 - 22 03/21 ES /2016 [facility] ELECTROLYT Chloride Lvl 97 95 - 109 03/21 ES /2016 [facility] ELECTROLYT Sodium Lvl 135 135 - 145 03/21 ES [facility] ELECTROLYT Potassium 3.5 3.5 - 5.1 03/21 ES Lvl /2016 [facility] ELECTROLYT Calcium Lvl 9.0 8.5 - 10.5 03/21 ES [facility] ELECTROLYT CO2 27 24 - 32 03/21 ES [facility] ELECTROLYT Glucose Lvl 101 70 - 99 03/21 ES [facility] HEMATOLOGY Basophils # 0.0 0.0 - 0.2 03/21 [facility] HEMATOLOGY Anisocyte 1+ None Seen 03/21 *ABN* /2016 [facility] (03/21/17 3:55 AM) HEMATOLOGY Eosinophils 1.4 0.0 - 4.0 03/21 [facility] HEMATOLOGY Monocytes 4.9 2.0 - 12.0 03/21 [facility] HEMATOLOGY Lymphocytes 27.5 20.0 - 03/21 MH 40.0 /2017 [facility] HEMATOLOGY Monocytes # 0.2 0.0 - 0.8 03/21 [facility] HEMATOLOGY Lymphocytes 1.4 1.0 - 5.5 03/21 MH # /2016 [facility] HEMATOLOGY Basophils 0.6 0.0 - 1.0 03/21 [facility] HEMATOLOGY Segs-Bands # 3.3 1.5 - 8.1 03/21 [facility] HEMATOLOGY Segs 65.6 45.0 - 03/21 MH 75.0 /2016 [facility] HEMATOLOGY Eosinophils 0.1 0.0 - 0.5 03/21 MH # /2017 [facility] HEMATOLOGY PT 14.3 12.0 - 11 MH 14.7 /2017 [facility] HEMATOLOGY INR 1.11 0.85 - 03/21 MH 1.17 /2016 [facility] HEMATOLOGY Hgb 12.0 14.0 - 03/21 MH 18.0 [facility] HEMATOLOGY Hct 35.4 42.0 - 03/21 MH 54.0 [facility] HEMATOLOGY MCV 91.2 80.0 - 03/21 MH 94.0 [facility] HEMATOLOGY RBC 3.88 4.70 - 03/21 MH 6.10 [facility] HEMATOLOGY WBC 5.0 3.7 - 10.4 03/21 [facility] HEMATOLOGY RDW 16.3 11.5 - 03/21 MH 14. [facility] HEMATOLOGY Platelet 65 133 - 450 03/21 [facility] HEMATOLOGY MPV 8.8 7.4 - 10.4 03/21 [facility] HEMATOLOGY MCH 30.8 27.0 - 03/21 MH 31.0 [facility] HEMATOLOGY MCHC 33.8 32.0 - 03/21 MH 36.0 [facility] IMMUNOLOGY PAO Negative Negative 03/21 (03/21/17 3:55 AM) [facility] ELECTROLYT AGAP 16.2 10.0 - 03/20 ES 20.0 [facility] ELECTROLYT eGFR 24 03/20 Result Comment: [facility] eGFR is calculated using the CKD-EPI [...] Calcium Lvl 9.1 8.5 - 10.5 03/20 [facility] ELECTROLYT Glucose Lvl 95 70 - 99 03/20 [facility] ELECTROLYT BUN 43 7 - 22 03/20 [facility] ELECTROLYT Chloride Lvl 98 95 - 109 03/20 ES [facility] ELECTROLYT Potassium 3.2 3.5 - 5.1 03/20 [facility] Lv [facility] ELECTROLYT CO2 24 24 - 32 03/20 [facility] ELECTROLYT Sodium Lvl 135 135 - 145 03/20 ES [facility] ELECTROLYT Creatinine 2.70 0.50 - 03/20 ES Lvl 1.40 [facility] HEMATOLOGY PT 14.4 12.0 - 03/20 14.7 [facility] HEMATOLOGY INR 1.12 0.85 - 11 1.17 [facility] HEMATOLOGY INR 1.20 0.85 - 03/19 1.17 [facility] HEMATOLOGY PT 15.3 12.0 - 03/19 14.7 [facility] CHEM PANEL Phosphorus 2.3 2.5 - 4.5 03/18 [facility] CHEM PANEL Albumin Lvl 2.9 3.5 - 5.0 03/18 [facility] CHEM PANEL Magnesium 2.0 1.8 - 2.4 03/18 Lvl [facility] HEMATOLOGY Basophils # 0.0 0.0 - 0.2 03/18 [facility] HEMATOLOGY PTT 38.2 22.9 - 03/18 35. [facility] IMMUNOLOGY RF Qnt <10 0 - 20 03/18 [facility] HEMATOLOGY PTT 49.8 22.9 - 03/18 35.8 [facility] HEMATOLOGY PTT 33.2 22.9 - 03/18 35. [facility] HEMATOLOGY D-Dimer 3.61 03/17 [facility] Fibrinogen 447 230 - 510 03/17 Lvl [facility] Heparin Negative 1 Negative 03/17 Result Ab(HASEEB) (03/17/17 12:58 PM) Comment: is [facility] assay detects heparin antibodies of IgG isotype. Antibodies of other isotypes have been reported to cause heparin-induc ed thrombocytope neel. Therefore, if there is a strong clinical suspicion of HIT, additional study with a serotonin release assay is recommented. HEMATOLOGY Pat Od Value 0.069 03/17 [facility] HEMATOLOGY Pos CO Value 0.400 03/17 [facility] HEMATOLOGY PB Smear Mild 03/17 Path [facility] with normochrom ic, normocytic indices. Moderate thrombocyt openia. No significan t microangio pathic changes seen. Clinical and laboratory correlatio n required. CHEM PANEL Albumin Lvl 3.0 3.5 - 5.0 03/17 [facility] CHEM PANEL Phosphorus 2.4 2.5 - 4.5 03/17 [facility] CHEM PANEL Magnesium 2.3 1.8 - 2.4 03/17 Lvl [facility] URINE AND UA Protein Negative Negative 03/17 STOOL mg/dL mg/dL [facility] URINE AND UA pH 6.0 5.0 - 8.0 03/17 STOOL [facility] URINE AND UA Glucose Negative Negative 03/17 STOOL mg/dL mg/dL [facility] URINE AND UA Spec Grav 1.012 <=1.030 03/17 STOOL [facility] URINE AND UA <=1.0 0.1 - 1.0 03/17 STOOL Urobilinogen [facility] URINE AND UA Color Yellow 03/17 STOOL [facility] URINE AND UA Mucus Few /LPF None Seen 03/17 STOOL /LPF [facility] URINE AND UA WBC 1 0 - 5 03/17 STOOL [facility] URINE AND UA Sq Epi Occasional Few /LPF 03/17 STOOL /LPF [facility] URINE AND UA Leuk Est Negative Negative 03/17 STOOL (03/16/17 8:57 PM) [facility] est URINE AND UA Nitrite Negative Negative 03/17 STOOL (03/16/17 8:57 PM) [facility] est URINE AND UA Blood Negative Negative 03/17 [facility] (03/16/17 8:57 PM) [place] [facility]A Bili Negative Negative 03/17 STOOL *NA* /2016 [facility] (03/16/17 8:57 PM) URINE AND UA Ketones Trace Negative 03/17 STOOL mg/dL mg/dL [facility] URINE AND UA Turbidity Clear Clear 03/17 STOOL (03/16/17 8:57 PM) [facility] est URINE CHEM U Prot/Creat 0.1 03/17 [facility] URINE CHEM U Eos None Seen None Seen 03/17 (03/16/17 8:57 PM) [facility] est URINE CHEM U Creatinine 137.00 03/17 [facility] URINE CHEM U Protein 14.8 03/17 [facility] URINE CHEM U Sodium 33 03/17 [facility] CARDIAC CK MB Index 1.8 0.0 - 2.5 03/16 ENZYMES [facility] CARDIAC Total CK 115 12 - 191 03/16 ENZYMES [facility] CARDIAC CK MB 2.1 0.5 - 3.6 03/16 ENZYMES [facility] CARDIAC Troponin-I 0.15 0.00 - 03/16 ENZYMES 0.40 [facility] CARDIAC BNP 255 <=100 03/16 ENZYMES pg/mL /2016 [facility] CHEM PANEL Procalcitoni 0.07 0.00 - 03/16 n Lvl 0.10 [facility] HEMATOLOGY Sed Rate 54 0 - 15 03/16 [facility] ELECTROLYT AGAP 15.7 10.0 - 03/11 ES 20.0 [facility] ELECTROLYT CO2 24 24 - 32 03/11 [facility] ELECTROLYT Sodium Lvl 143 135 - 145 03/11 [facility] ELECTROLYT Potassium 3.7 3.5 - 5.1 03/11 ES Lvl [facility] ELECTROLYT Chloride Lvl 107 95 - 109 03/11 [facility] ELECTROLYT eGFR 43 03/11 Comment: [facility] eGFR is calculated using the CKD-EPI [...] Lvl 7.9 8.5 - 10.5 03/11 ES [facility] ELECTROLYT Glucose Lvl 114 70 - 99 03/11 [facility] ELECTROLYT BUN 34 7 - 22 03/11 [facility] ELECTROLYT Creatinine 1.70 0.50 - 03/11 ES Lvl 1.40 [facility] LIPIDS VLDL 17 03/11 [facility] LIPIDS LDL 31 <=99 mg/dL 03/11 (Calculated) [facility] LIPIDS Chol 102 <=199 03/11 MH mg/dL [facility] LIPIDS Trig 85 <=149 03/11 mg/dL /2015 [facility] LIPIDS CHD Risk 1.89 4.00 - 03/11 7.30 [facility] LIPIDS HDL 54 >=61 mg/dL 03/11 [facility] CARDIAC BNP 241 <=100 03/09 ENZYMES pg/mL /2015 [facility] CARDIAC CK MB Index 2.0 0.0 - 2.5 03/09 MH ENZYMES [facility] CARDIAC Troponin-I 0.19 0.00 - 03/09 ENZYMES 0.40 [facility] CARDIAC CK MB 1.7 0.5 - 3.6 03/09 ENZYMES [facility] CARDIAC Total CK 84 12 - 191 03/09 ENZYMES [facility] CHEM PANEL eGFR 35 03/09 Result Comment: [facility] eGFR is calculated using the CKD-EPI [...] PANEL CO2 29 24 - 32 03/09 [facility] CHEM PANEL Potassium 3.8 3.5 - 5.1 03/09 Lvl [facility] CHEM PANEL Calcium Lvl 8.2 8.5 - 10.5 03/09 [facility] CHEM PANEL Chloride Lvl 104 95 - 109 03/09 [facility] CHEM PANEL Sodium Lvl 143 135 - 145 03/09 [facility] CHEM PANEL Creatinine 2.00 0.50 - 03/09 Lvl 1.40 /2015 [facility] CHEM PANEL BUN 34 7 - 22 03/09 [facility] CHEM PANEL Glucose Lvl 145 70 - 99 03/09 [facility] CHEM PANEL AGAP 13.8 10.0 - 03/09 MH 20.0 /2015 [facility] HEMATOLOGY MPV 10.1 7.4 - 10.4 03/09 [facility] HEMATOLOGY Platelet 143 133 - 450 03/09 [facility] HEMATOLOGY RDW 18.7 11.5 - 03/09 MH 14.5 /2015 [facility] HEMATOLOGY Hgb 12.4 14.0 - 03/09 MH 18.0 /2015 [facility] HEMATOLOGY MCHC 32.0 32.0 - 03/09 MH 36.0 /2015 [facility] HEMATOLOGY MCH 27.8 27.0 - 03/09 MH 31.0 [facility] HEMATOLOGY MCV 86.7 80.0 - 03/09 MH 94.0 /2015 [facility] HEMATOLOGY Hct 38.7 42.0 - 03/09 MH 54.0 /2015 [facility] HEMATOLOGY RBC 4.46 4.70 - 03/09 MH 6. [facility] HEMATOLOGY WBC 6.5 3.7 - 10.4 03/09 [facility] HEMATOLOGY Monocytes 3.9 2.0 - 12.0 03/09 [facility] HEMATOLOGY Lymphocytes 2.0 1.0 - 5.5 03/09 MH # /2015 [facility] HEMATOLOGY Segs-Bands # 4.1 1.5 - 8.1 03/09 [facility] HEMATOLOGY Basophils # 0.0 0.0 - 0.2 03/09 [facility] HEMATOLOGY Basophils 0.5 0.0 - 1.0 03/09 [facility] HEMATOLOGY Eosinophils 1.7 0.0 - 4.0 03/09 [facility] HEMATOLOGY Eosinophils 0.1 0.0 - 0.5 03/09 MH # /2015 [facility] HEMATOLOGY Monocytes # 0.3 0.0 - 0.8 03/09 [facility] HEMATOLOGY Lymphocytes 30.7 20.0 - 03/09 MH 40.0 [facility] HEMATOLOGY Segs 63.2 45.0 - 03/09 MH 75.0 /2015 [facility] URINE AND UA WBC 6 0 - 5 03/09 STOOL /2015 [facility] URINE AND UA RBC 1 0 - 2 03/09 STOOL [facility] URINE AND UA Sq Epi Occasional Few /LPF 03/09 STOOL /LPF /2015 [facility] URINE AND UA Leuk Est Small Negative 03/09 STOOL *ABN* /2015 [facility] (03/09/16 4:57 PM) URINE AND UA Nitrite Negative Negative 03/09 STOOL (03/09/16 4:57 PM) [facility] URINE AND UA <=1.0 0.1 - 1.0 03/09 STOOL Urobilinogen /2015 [facility] URINE AND UA Bili Negative Negative 03/09 STOOL *NA* /2015 [facility] (03/09/16 4:57 PM) URINE AND UA Ketones Negative Negative 03/09 STOOL mg/dL mg/dL /2015 [facility] URINE AND UA Blood Negative Negative 03/09 STOOL (03/09/16 4:57 PM) [facility] URINE AND UA Protein Negative Negative 03/09 STOOL mg/dL mg/dL [facility] URINE AND UA pH 7.0 5.0 - 8.0 03/09 STOOL [facility] URINE AND UA Glucose Negative Negative 03/09 STOOL mg/dL mg/dL [facility] URINE AND UA Turbidity Clear Clear 03/09 STOOL (03/09/16 4:57 PM) [facility] URINE AND UA Color Light Yellow Yellow 03/09 STOOL *NA* /2015 [facility] (03/09/16 4:57 PM) URINE AND UA Spec Grav 1.009 <=1.030 03/09 STOOL [facility] CARDIAC CK MB Index 1.0 0.0 - 2.5 01/17 Sugar ENZYMES [facility] CARDIAC CK MB 0.9 0.5 - 3.6 01/17 [facility] ENZYMES [facility] CARDIAC Troponin-I 0.17 0.00 - 01/17 [place] ENZYMES 0.40 /2015 [facility] CARDIAC Total CK 91 12 - 191 01/17 [place] ELECTROLYT AGAP 12.1 10.0 - 01/17 [place] ES 20.0 /2015 [place] ELECT[place]OLYT Potassium 4.1 3.5 - 5.1 01/17 [place] ES Lvl /2015 [place] ELECTROLYT Chloride Lvl 105 95 - 109 01/17 [place] ELECTROL[place]T eGFR 34 01/17 [facility] ES Comment: [facility] [place] eGFR is [...] eGFR 35 01/16 Result [place] Comment: [facility] eGFR is calculated using the CKD-EPI [...] PANEL eGFR 47 05/28 Result Comment: [facility] eGFR is calculated using the CKD-EPI [...] Positive Negative 05/28 [place] STOOL *ABN* /2015 [facility] (05/28/15 3:44 PM) URINE AND UA [...] 12.2 12.0 - 12/15 MH 14.7 /2015 [facility] HEMATOLOGY POC INR 1.0 0.9 - 1.2 04/23 MH /2014 [facility] CARDIAC CK MB Index 0.9 0.0 - 2.5 04/22 MH ENZYMES /2014 [facility] CARDIAC Troponin-I 0.20 0.00 - 04/22 ENZYMES 0.40 /2014 [facility] CARDIAC CK MB 1.6 0.5 - 3.6 04/22 ENZYMES /2014 [facility] CARDIAC Total CK 176 12 - 191 04/22 MH ENZYMES /2014 [facility] CARDIAC Troponin-I 0.24 0.00 - 04/21 MH ENZYMES 0.40 /2014 [facility] CARDIAC CK MB 2.3 0.5 - 3.6 04/21 MH ENZYMES /2014 [facility] CARDIAC Total CK 133 12 - 191 04/21 MH ENZYMES /2014 [facility] CARDIAC CK MB Index 1.7 0.0 - 2.5 04/21 MH ENZYMES /2014 [facility] CARDIAC BNP 118 <=100 04/21 ENZYMES pg/mL /2014 [facility] CARDIAC CK MB 1.8 0.5 - 3.6 04/21 ENZYMES /2014 [facility] CARDIAC Troponin-I 0.24 0.00 - 04/21 ENZYMES 0.40 /2014 [facility] CARDIAC Total CK 131 12 - 191 04/21 MH ENZYMES /2014 [facility] CARDIAC CK MB Index 1.4 0.0 - 2.5 04/21 ENZYMES /2014 [facility] CHEM PANEL Phosphorus 2.2 2.5 - 4.5 04/21 [facility] CHEM PANEL Magnesium 2.0 1.8 - 2.4 04/21 Lvl /2014 [facility] CHEM PANEL Glucose Lvl 97 70 - 99 04/21 [facility] CHEM PANEL BUN 20 7 - 22 04/21 [facility] CHEM PANEL Total 6.9 6.4 - 8.4 04/21 Protein /2014 [facility] CHEM PANEL Albumin Lvl 3.1 3.5 - 5.0 04/21 [facility] CHEM PANEL ALT 18 0 - 65 04/21 [facility] CHEM PANEL Creatinine 1.70 0.50 - 04/21 MH Lvl 1.40 [facility] CHEM PANEL Chloride Lvl 109 95 - 109 04/21 [facility] CHEM PANEL Sodium Lvl 144 135 - 145 04/21 [facility] CHEM PANEL Alk Phos 73 39 - 136 04/21 [facility] CHEM PANEL Potassium 3.6 3.5 - 5.1 12/13 MH Lvl /2014 [facility] CHEM PANEL AST 24 0 - 37 04/21 [facility] CHEM PANEL eGFR 43 04/21 Comment: [facility] eGFR is calculated using the CKD-EPI [...] Calcium Lvl 8.2 8.5 - 10.5 04/21 [facility] CHEM PANEL CO2 27 24 - 32 04/21 [facility] CHEM PANEL Bili Total 0.5 0.2 - 1.3 04/21 [facility] CHEM PANEL B/C Ratio 12 6 - 25 04/21 [facility] CHEM PANEL Globulin 3.8 2.0 - 4.0 04/21 [facility] CHEM PANEL A/G Ratio 0.8 0.7 - 1.6 04/21 [facility] CHEM PANEL AGAP 11.6 10.0 - 04/21 MH 20.0 [facility] HEMATOLOGY MCV 88.7 80.0 - 04/21 MH 94.0 /2014 [facility] HEMATOLOGY RBC 3.94 4.70 - 04/21 MH 6.10 /2014 [facility] HEMATOLOGY Hgb 11.1 14.0 - 04/21 MH 18.0 [facility] HEMATOLOGY WBC 4.8 3.7 - 10.4 04/21 [facility] HEMATOLOGY Hct 35.0 42.0 - 04/21 MH 54.0 /2014 [facility] HEMATOLOGY Platelet 85 133 - 450 04/21 [facility] HEMATOLOGY MCH 28.3 27.0 - 04/21 MH 31.0 /2014 [facility] HEMATOLOGY MCHC 31.9 32.0 - 04/21 MH 36.0 /2014 [facility] HEMATOLOGY RDW 17.7 11.5 - 04/21 MH 14.5 /2014 [facility] HEMATOLOGY MPV 10.2 7.4 - 10.4 04/21 /2014 [facility] HEMATOLOGY Lymphocytes 29.8 20.0 - 04/21 MH 40.0 /2014 [facility] HEMATOLOGY Monocytes 5.3 2.0 - 12.0 04/21 [facility] HEMATOLOGY Eosinophils 3.2 0.0 - 4.0 04/21 /2014 [facility] HEMATOLOGY Segs 61.4 45.0 - 04/21 MH 75.0 /2014 [facility] HEMATOLOGY Segs-Bands # 3.0 1.5 - 8.1 04/21 [facility] HEMATOLOGY Lymphocytes 1.4 1.0 - 5.5 04/21 # /2014 [facility] HEMATOLOGY Basophils 0.3 0.0 - 1.0 04/21 [facility] HEMATOLOGY Basophils # 0.0 0.0 - 0.2 04/21 [facility] HEMATOLOGY Monocytes # 0.3 0.0 - 0.8 04/21 [facility] HEMATOLOGY Eosinophils 0.2 0.0 - 0.5 04/21 # /2014 [facility] LIPIDS CHD Risk 2.04 4.00 - 04/21 7.30 /2014 [facility] LIPIDS VLDL 14 04/21 [facility] LIPIDS LDL 33 <=99 mg/dL 04/21 (Calculated) [facility] LIPIDS Chol 92 <=199 04/21 mg/dL /2014 [facility] LIPIDS HDL 45 >=61 mg/dL 04/21 [facility] LIPIDS Trig 70 <=149 04/21 mg/dL /2014 [facility] SPECIAL Hgb A1C 5.7 <=5.6 % 04/21 CHEMISTRY [facility] CARDIAC Total CK 66 12 - 191 02/02 MH ENZYMES [facility] CHEM PANEL eGFR 38 02/02 Result Comment: [facility] eGFR is calculated using the CKD-EPI [...] PANEL AST 20 0 - 37 02/02 [facility] CHEM PANEL Alk Phos 112 39 - 136 02/02 [place] CHEM PANEL ALT 16 0 - 65 02/02 [facility] CHEM PANEL Bili Total 0.7 0.2 - 1.3 02/02 [facility] CHEM PANEL Potassium 3.4 3.5 - 5.1 02/02 Lvl [place] CHEM PANEL Chloride Lvl 105 95 - 109 02/02 [facility] CHEM PANEL Albumin Lvl 3.4 3.5 - 5.0 02/02 [facility] CHEM PANEL Total 8.3 6.4 - 8.4 02/02 [place] CHEM PANEL CO2 25 24 - 32 02/02 [place] CHEM PANEL Calcium Lvl 8.7 8.5 - 10.5 02/02 [facility] CHEM PANEL BUN 13 7 - 22 02/02 [place] CHEM PANEL Sodium Lvl 137 135 - 145 02/02 [facility] CHEM PANEL Creatinine 1.9 0.5 - 1.4 02/02 Lvl [facility] CHEM PANEL Glucose Lvl 111 70 - 99 02/02 [facility] CHEM PANEL A/G Ratio 0.7 0.7 - 1.6 02/02 [facility] CHEM PANEL B/C Ratio 7 6 - 25 02/02 [facility] CHEM PANEL Globulin 4.9 2.0 - 4.0 02/02 [facility] CHEM PANEL AGAP 10.4 10.0 - 02/02 MH 20.0 [facility] HEMATOLOGY RDW 16.8 11.5 - 02/02 14.5 [facility] HEMATOLOGY Platelet 139 133 - 450 02/02 [facility] HEMATOLOGY MPV 8.2 7.4 - 10.4 02/02 [facility] HEMATOLOGY WBC 5.1 3.7 - 10.4 02/02 [facility] HEMATOLOGY Hgb 11.3 14.0 - 02/02 MH 18.0 /2014 [facility] HEMATOLOGY Hct 36.3 42.0 - 02/02 MH 54.0 /2014 [facility] HEMATOLOGY MCHC 31.2 32.0 - 02/02 MH 36.0 /2014 [facility] HEMATOLOGY RBC 4.04 4.70 - 02/02 MH 6.10 /2014 [facility] HEMATOLOGY MCV 89.8 80.0 - 02/02 MH 94.0 /2014 [facility] MCH 28.0 27.0 - 02/02 MH 31.0 /2014 [facility] HEMATOLOGY Segs-Bands # 3.3 1.5 - 8.1 02/02 /2014 [facility] HEMATOLOGY Basophils 0.6 0.0 - 1.0 02/02 [facility] HEMATOLOGY Monocytes # 0.4 0.0 - 0.8 02/02 [facility] HEMATOLOGY Basophils # 0.0 0.0 - 0.2 02/02 /2014 [facility] HEMATOLOGY Segs 65.9 45.0 - 02/02 MH 75.0 /2014 [facility] HEMATOLOGY Eosinophils 3.3 0.0 - 4.0 02/02 [facility] HEMATOLOGY Monocytes 7.0 2.0 - 12.0 02/02 [facility] HEMATOLOGY Lymphocytes 1.2 1.0 - 5.5 02/02 MH # /2014 [facility] HEMATOLOGY Eosinophils 0.2 0.0 - 0.5 02/02 /2014 [facility] Lymphocytes 23.2 20.0 - 02/02 40.0 /2014 [facility] CARDIAC BNP 185 <=100 07/07 <sup>3</sup>I [place] ENZYMES pg/mL /2014 nterpretive [facility] Data: Elevated results are in line with increasing severity of
con gestive heart failure. Minor elevations between 100 and 300
may be seen with Myocardial Ischemia, Sodium retaining drugs,
an d compensated/t reated heart failure. HEMATOLOGY INR 1.01 0.85 - 07/07 <sup>4</sup>I [place] 1.17 /2014 nterpretive [facility] Data: RECOMMENDED RANGES FOR PROTIME INR:
2.0-3.0 for most medical and surgical thromboemboli c states.
2.5-3.5 for artificial heart valves and recurrent embolism.<br/ >
INR SHOULD BE USED ONLY FOR PATIENTS ON STABLE ANTICOAGULANT THERAPY. HEMATOLOGY PTT 27.2 22.9 - 07/07 <sup>5</sup>I [place] r 35.8 /2014 nterpretive [facility] Data: Heparin Therapeutic Range: 57 - 92 Seconds HEMATOLOGY PT 13.3 12.0 - 07/07 [place] 14.7 /2014 [facility] CARDIAC CK MB Index 0.8 0.0 - 2.5 07/07 [place] ENZYMES /2014 [facility] CARDIAC Total CK 121 12 - 191 07/07 [place] ENZYMES /2014 [facility] CARDIAC CK MB 1.0 0.5 - 3.6 07/07 [place] ENZYMES /2014 [facility] CARDIAC Troponin-I 0.28 0.00 - 07/07 [...] values reflect the clinical guidelines
of the [place] [employer]. CHEM PANEL BUN 44 7 [...] 35.8 32.0 - 07/07 Sugar 36.0 /2014 [facility] HEMATOLOGY MCV 80.3 80.0 - 07/07 Sugar 94.0 /2014 [facility] HEMATOLOGY MCH 28.7 27.0 - 07/07 Sugar 31.0 /2014 [facility] HEMATOLOGY Platelet 105 133 - 450 07/07 MH Sugar /2014 [facility] HEMATOLOGY MPV 10.1 7.4 - 10.4 07/07 Sugar /2014 [facility] HEMATOLOGY RDW 18.6 11.5 - 07/07 Sugar 14.5 /2014 [facility] HEMATOLOGY RBC 4.19 4.70 - 07/07 Sugar 6.10 /2014 [facility] HEMATOLOGY Hgb 12.0 14.0 - 07/07 Sugar 18.0 /2014 [facility] HEMATOLOGY WBC 6.5 3.7 - 10.4 07/07 Sugar /2014 [facility] CHEM PANEL eGFR 34 04/02 <sup>1</sup>R esult [facility] Comment: The eGFR is calculated using [...] 24 24 - 32 04/02 MH Dioxide [facility] CHEM PANEL POC Chloride 102 95 - 109 04/02 [facility] CHEM PANEL POC 4.2 3.5 - 5.1 04/02 Potassium [facility] CHEM PANEL POC Ion Ca 1.24 1.05 - 04/02 MH 1.25 /2013 [facility] CHEM PANEL POC Sodium 142 135 - 145 04/02 [facility] CHEM PANEL POC 2.1 0.5 - 1.4 04/02 Creatinine [facility] CHEM PANEL POC 11.2 14.0 - 04/02 Hemoglobin 18.0 [facility] CHEM PANEL POC BUN 28 7 - 22 04/02 [facility] CHEM PANEL POC Glucose 101 70 - 99 04/02 [facility] CHEM PANEL POC AGAP 21.0 10.0 - 04/02 MH 20.0 [facility] CHEM PANEL POC 33.0 42.0 - 04/02 Hematocrit 54.0 [facility] BLOOD BANK ABO/Rh AB POS 03/30 RESULTS /2013 [facility] BLOOD BANK Antibody Negative 03/30 RESULTS Scrn (03/30/14 11:25 AM) [facility] BLOOD BANK RBC product Product available 03/30 RESULTS (03/30/14 11:25 AM) [facility] ELECTROLYT AGAP 10.7 10.0 - 03/30 ES 20.0 [facility] ELECTROLYT eGFR 34 03/30 <sup>2</sup>R MH esult [facility] Comment: The eGFR is calculated using [...] Lvl 143 135 - 145 03/30 ES [facility] ELECTROLYT Creatinine 2.1 0.5 - 1.4 03/30 ES Lvl [facility] ELECTROLYT BUN 34 7 - 22 03/30 ES [facility] ELECTROLYT Potassium 3.7 3.5 - 5.1 03/30 ES Lvl [facility] ELECTROLYT CO2 30 24 - 32 03/30 ES [facility] ELECTROLYT Chloride Lvl 106 95 - 109 03/30 ES [facility] ELECTROLYT Calcium Lvl 8.6 8.5 - 10.5 03/30 ES /2013 [facility] ELECTROLYT Glucose Lvl 88 70 - 99 03/30 <sup>3</sup>I ES nterpretive [facility] Data: Adult reference range values reflect the clinical guidelines
of the [place] [employer]. HEMATOLOGY PTT 27.7 22.9 - 03/30 <sup>5</sup>I 35.8 /2013 nterpretive [facility] Data: Heparin Therapeutic Range: 57 - 92 Seconds HEMATOLOGY RBC 3.57 4.70 - 03/30 6.10 /2013 [facility] HEMATOLOGY WBC 4.9 3.7 - 10.4 03/30 [facility] HEMATOLOGY Hct 30.9 42.0 - 03/30 54.0 /2013 [facility] HEMATOLOGY Hgb 10.1 14.0 - 03/30 18.0 [facility] HEMATOLOGY MCH 28.2 27.0 - 03/30 31.0 /2013 [facility] HEMATOLOGY MCV 86.5 80.0 - 03/30 94.0 /2013 [facility] HEMATOLOGY MCHC 32.6 32.0 - 03/30 36.0 /2013 [facility] HEMATOLOGY RDW 18.3 11.5 - 03/30 14.5 /2013 [facility] HEMATOLOGY MPV 9.1 7.4 - 10.4 03/30 [facility] HEMATOLOGY Platelet 122 133 - 450 03/30 [facility] HEMATOLOGY Eosinophils 3.5 0.0 - 4.0 03/30 [facility] HEMATOLOGY Monocytes 5.1 2.0 - 12.0 03/30 [facility] HEMATOLOGY Lymphocytes 1.2 1.0 - 5.5 03/30 MH # /2013 [facility] HEMATOLOGY Segs-Bands # 3.3 1.5 - 8.1 03/30 [facility] HEMATOLOGY Eosinophils 0.2 0.0 - 0.5 03/30 # /2013 [facility] HEMATOLOGY Lymphocytes 23.7 20.0 - 03/30 40.0 /2013 [facility] HEMATOLOGY Segs 67.4 45.0 - 03/30 75.0 /2013 [facility] HEMATOLOGY Basophils 0.3 0.0 - 1.0 03/30 [facility] HEMATOLOGY Monocytes # 0.3 0.0 - 0.8 03/30 [facility] HEMATOLOGY Basophils # 0.0 0.0 - 0.2 03/30 [facility] HEMATOLOGY Plt Morph Normal 03/30 (03/30/14 11:25 AM) [facility] HEMATOLOGY RBC Morph Normal 03/30 (03/30/14 11:25 AM) [facility] HEMATOLOGY INR 1.08 0.85 - 03/30 <sup>4</sup>I 1.17 nterpretive [facility] Data: RECOMMENDED RANGES FOR PROTIME INR:
2.0-3.0 for most medical and surgical thromboemboli c states.
2.5-3.5 for artificial heart valves and recurrent embolism.<br/ >
INR SHOULD BE USED ONLY FOR PATIENTS ON STABLE ANTICOAGULANT THERAPY. HEMATOLOGY PT 14.1 12.0 - 03/30 14.7 [facility] ELECTROLYT AGAP 10.4 10.0 - 03/05 ES 20.0 [facility] ELECTROLYT eGFR 38 03/05 <sup>1</sup>R [facility] Comment: The eGFR is calculated using [...] ELECTROLYT CO2 31 24 - 32 03/05 [facility] ELECTROLYT Calcium Lvl 8.4 8.5 - 10.5 03/05 [facility] ELECTROLYT Sodium Lvl 140 135 - 145 03/05 [facility] ELECTROLYT Potassium 3.4 3.5 - 5.1 03/05 ES Lvl [facility] ELECTROLYT Chloride Lvl 102 95 - 109 03/05 ES [facility] ELECTROLYT BUN 13 7 - 22 03/05 ES [facility] ELECTROLYT Creatinine 1.9 0.5 - 1.4 03/05 ES Lvl /2013 [facility] ELECTROLYT Glucose Lvl 80 70 - 99 03/05 <sup>4</sup>I ES nterpretive [facility] Data: Adult reference range values reflect the clinical guidelines
of the [place] [employer]. HEMATOLOGY Monocytes 6.9 2.0 - 12.0 03/05 [facility] HEMATOLOGY Basophils 0.8 0.0 - 1.0 03/05 [facility] HEMATOLOGY Eosinophils 3.8 0.0 - 4.0 03/05 [facility] HEMATOLOGY Monocytes # 0.4 0.0 - 0.8 03/05 [facility] HEMATOLOGY Eosinophils 0.2 0.0 - 0.5 03/05 # /2013 [facility] HEMATOLOGY Lymphocytes 23.4 20.0 - 03/05 40.0 /2013 [facility] HEMATOLOGY Segs 65.1 45.0 - 03/05 75.0 /2013 [facility] HEMATOLOGY Lymphocytes 1.3 1.0 - 5.5 03/05 MH # /2013 [facility] HEMATOLOGY Segs-Bands # 3.7 1.5 - 8.1 03/05 [facility] HEMATOLOGY MCHC 32.3 32.0 - 03/05 36.0 /2013 [facility] HEMATOLOGY RDW 16.7 11.5 - 03/05 14.5 /2013 [facility] HEMATOLOGY Platelet 93 133 - 450 03/05 [facility] HEMATOLOGY MPV 9.2 7.4 - 10.4 03/05 [facility] HEMATOLOGY MCH 29.2 27.0 - 03/05 31.0 /2013 [facility] HEMATOLOGY WBC 5.7 3.7 - 10.4 03/05 [facility] HEMATOLOGY MCV 90.6 80.0 - 03/05 94.0 /2013 [facility] HEMATOLOGY Hct 34.5 42.0 - 03/05 54.0 /2013 [facility] HEMATOLOGY RBC 3.81 4.70 - 03/05 6.10 [facility] HEMATOLOGY Hgb 11.1 14.0 - 03/05 18.0 /2013 [facility] IMMUNOLOGY SS-B (La) Ab <0.2 <=0.9 AI 03/04 [facility] IMMUNOLOGY SS-A ([place]) Ab <0.2 <=0.9 AI 03/04 [facility] IMMUNOLOGY DNA Ab (DS) Negative Negative 03/04 (03/04/14 2:39 PM) [facility] IMMUNOLOGY Sm Ab <0.2 <=0.9 AI 03/04 [facility] IMMUNOLOGY MIXER 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 FEEDER Ab <0.2 <=0.9 AI 03/04 [facility] IMMUNOLOGY PAO Titer 1:40 Negative 03/04 *ABN* [facility] (03/04/14 2:39 PM) IMMUNOLOGY PAO Interp Pattern 03/04 appears [facility] speckled IMMUNOLOGY RF Qnt <10 0 - 20 03/04 [facility] IMMUNOLOGY PAO Positive Negative 03/04 *ABN* [facility] (03/04/14 2:39 PM) [facility] 19 8 - 52 03/04 CHEMISTRY [facility] THYROID TSH 4.580 0.360 - 03/04 PANEL 3.740 [facility] CHEM PANEL eGFR 44 03/04 <sup>2</sup>R esult [facility] Comment: The eGFR is calculated using [...] Calcium Lvl 8.3 8.5 - 10.5 03/04 [facility] CHEM PANEL Sodium Lvl 141 135 - 145 03/04 [facility] CHEM PANEL Potassium 3.5 3.5 - 5.1 03/04 Lvl [facility] CHEM PANEL Chloride Lvl 105 95 - 109 03/04 [facility] CHEM PANEL CO2 29 24 - 32 03/04 [facility] CHEM PANEL Creatinine 1.7 0.5 - 1.4 03/04 Lvl /2013 [facility] CHEM PANEL BUN 12 7 - 22 03/04 [facility] CHEM PANEL Glucose Lvl 84 70 - 99 03/04 <sup>5</sup>I nterpretive [facility] Data: Adult reference range values reflect the clinical guidelines
of the [place] [employer]. CHEM PANEL AGAP 10.5 10.0 - 03/04 20.0 [facility] HEMATOLOGY Lymphocytes 1.4 1.0 - 5.5 03/04 MH # /2013 [facility] HEMATOLOGY Segs-Bands # 4.3 1.5 - 8.1 03/04 [facility] HEMATOLOGY Basophils 0.7 0.0 - 1.0 03/04 [facility] HEMATOLOGY Eosinophils 4.0 0.0 - 4.0 03/04 [facility] HEMATOLOGY Eosinophils 0.3 0.0 - 0.5 03/04 # /2013 [facility] HEMATOLOGY Monocytes # 0.4 0.0 - 0.8 03/04 [facility] HEMATOLOGY Monocytes 5.7 2.0 - 12.0 03/04 [facility] HEMATOLOGY Lymphocytes 22.2 20.0 - 03/04 40.0 [facility] HEMATOLOGY Segs 67.4 45.0 - 03/04 75.0 [facility] HEMATOLOGY Hgb 10.4 14.0 - 03/04 18.0 [facility] HEMATOLOGY RBC 3.50 4.70 - 03/04 6.10 [facility] HEMATOLOGY WBC 6.3 3.7 - 10.4 03/04 [facility] HEMATOLOGY MCHC 32.9 32.0 - 03/04 36.0 /2013 [facility] HEMATOLOGY Platelet 83 133 - 450 03/04 [facility] HEMATOLOGY RDW 16.4 11.5 - 03/04 14.5 /2013 [facility] HEMATOLOGY MPV 8.8 7.4 - 10.4 03/04 [facility] HEMATOLOGY MCH 29.5 27.0 - 03/04 31.0 [facility] HEMATOLOGY MCV 89.7 80.0 - 03/04 94.0 /2013 [facility] HEMATOLOGY Hct 31.4 42.0 - 03/04 54.0 /2013 [facility] CHEM PANEL eGFR 44 03/03 <sup>3</sup>R esult [facility] Comment: The eGFR is calculated using [...] PANEL CO2 30 24 - 32 03/03 [facility] CHEM PANEL Calcium Lvl 8.5 8.5 - 10.5 03/03 [facility] CHEM PANEL Creatinine 1.7 0.5 - 1.4 03/03 [facility] CHEM PANEL BUN 13 7 - 22 03/03 [facility] CHEM PANEL Glucose Lvl 90 70 - 99 03/03 <sup>6</sup>I nterpretive [facility] Data: Adult reference range values reflect the clinical guidelines
of the [place] [employer]. CHEM PANEL Sodium Lvl 146 135 - 145 03/03 [facility] CHEM PANEL Potassium 3.6 3.5 - 5.1 03/03 [facility] CHEM PANEL Chloride Lvl 109 95 - 109 03/03 [facility] CHEM PANEL AGAP 10.6 10.0 - 03/03 MH 20.0 [facility] HEMATOLOGY MPV 9.3 7.4 - 10.4 03/03 [facility] HEMATOLOGY RBC 3.54 4.70 - 03/03 MH 6.10 [facility] HEMATOLOGY WBC 6.2 3.7 - 10.4 03/03 [facility] HEMATOLOGY Hgb 10.4 14.0 - 03/03 MH 18.0 [facility] HEMATOLOGY Hct 32.0 42.0 - 03/03 MH 54.0 [facility] HEMATOLOGY MCV 90.5 80.0 - 03/03 MH 94.0 [facility] HEMATOLOGY MCH 29.4 27.0 - 03/03 31.0 /2013 [facility] HEMATOLOGY RDW 17.2 11.5 - 03/03 14.5 [facility] HEMATOLOGY MCHC 32.5 32.0 - 03/03 36.0 /2013 [facility] HEMATOLOGY Platelet 100 133 - 450 03/03 [facility] HEMATOLOGY Basophils # 0.0 0.0 - 0.2 03/03 [facility] HEMATOLOGY Monocytes # 0.3 0.0 - 0.8 03/03 [facility] HEMATOLOGY Lymphocytes 1.3 1.0 - 5.5 03/03 [facility] HEMATOLOGY Segs-Bands # 4.2 1.5 - 8.1 03/03 [facility] HEMATOLOGY Eosinophils 0.3 0.0 - 0.5 03/03 [facility] HEMATOLOGY Basophils 0.3 0.0 - 1.0 03/03 [facility] HEMATOLOGY Eosinophils 5.4 0.0 - 4.0 03/03 [facility] HEMATOLOGY Monocytes 5.2 2.0 - 12.0 03/03 [facility] HEMATOLOGY Lymphocytes 20.6 20.0 - 03/03 40.0 [facility] HEMATOLOGY Segs 68.5 45.0 - 03/03 75.0 [facility] HEMATOLOGY Basophils # 0.0 0.0 - 0.2 03/02 [facility] ANEMIA TIBC 252 228 - 428 03/01 STUDY [facility] ANEMIA Iron 44 45 - 160 03/01 [facility] ANEMIA UIBC 208 110 - 370 03/01 STUDY [facility] ANEMIA % Satur Fe 17 12 - 57 03/01 [facility] ANEMIA Ferritin Lvl 89 22 - 275 03/01 [facility] CARDIAC BNP 412 <=100 03/01 <sup>7</sup>I ENZYMES pg/mL /2013 nterpretive [facility] Data: Elevated results are in line with increasing severity of
con gestive heart failure. Minor elevations between 100 and 300
may be seen with Myocardial Ischemia, Sodium retaining drugs,
an d compensated/t reated heart failure. CHEM PANEL Magnesium 2.0 1.8 - 2.4 03/01 Lv [facility] CHEM PANEL Magnesium 1.7 1.8 - 2.4 02/28 Lvl [facility] HEMATOLOGY Basophils # 0.0 0.0 - 0.2 02/28 [facility] CHEM PANEL Magnesium 1.4 1.8 - 2.4 02/27 Lvl /2013 [facility] LIPIDS CHD Risk 1.89 4.00 - 02/27 7.30 /2013 [facility] LIPIDS LDL 23 <=99 mg/dL 02/27 (Calculated) [facility] LIPIDS HDL 37 >=61 mg/dL 02/27 [facility] LIPIDS Chol 70 <=199 02/27 mg/dL [facility] LIPIDS Trig 50 <=149 02/27 mg/dL [facility] LIPIDS VLDL 10 02/27 [facility] VIRAL - Influ B Negative 12 Negative 02/26 <sup>12</sup> SEROLOGY (02/26/14 6:00 PM) Interpretive [facility] Data: Influenza A&B Antigen:
Due to [...] SEROLOGY Ag (02/26/14 5:25 PM) /2013 [facility] CARDIAC Troponin-I 0.46 0.00 - 02/26 ENZYMES 0.40 /2013 [facility] CARDIAC Total CK 74 12 - 191 02/26 MH ENZYMES [facility] CARDIAC Troponin-I 0.37 0.00 - 02/26 ENZYMES 0.40 /2013 [facility] CARDIAC Total CK 101 12 - 191 02/26 MH ENZYMES [facility] CARDIAC CK MB Index 1.6 0.0 - 2.5 02/26 ENZYMES [facility] CARDIAC CK MB 1.6 0.5 - 3.6 02/26 ENZYMES [facility] CHEM PANEL A/G Ratio 0.9 0.7 - 1.6 02/26 [facility] CHEM PANEL B/C Ratio 9 6 - 25 02/26 [facility] CHEM PANEL Globulin 3.7 2.0 - 4.0 02/26 [facility] CHEM PANEL ALT 13 0 - 65 02/26 [facility] CHEM PANEL AST 20 0 - 37 02/26 [facility] CHEM PANEL Alk Phos 70 39 - 136 02/26 [facility] CHEM PANEL Bili Total 0.8 0.2 - 1.3 02/26 [facility] CHEM PANEL Total 6.9 6.4 - 8.4 02/26 Protein /2013 [facility] CHEM PANEL Albumin Lvl 3.2 3.5 - 5.0 02/26 [facility] CARDIAC BNP 441 <=100 02/26 <sup>8</sup>I ENZYMES pg/mL nterpretive [facility] Data: Elevated results are in line with increasing severity of
con gestive heart failure. Minor elevations between 100 and 300
may be seen with Myocardial Ischemia, Sodium retaining drugs,
an d compensated/t reated heart failure. URINE AND UA Sq Epi None Seen Few 02/26 STOOL (02/25/14 9:10 PM) [facility] URINE AND UA Bacteria None Seen None Seen 02/26 STOOL (02/25/14 9:10 PM) [facility] URINE AND UA Color Yellow Yellow 02/26 STOOL *NA* /2013 [facility] (02/25/14 9:10 PM) URINE AND UA Nitrite Negative Negative 02/26 STOOL (02/25/14 9:10 PM) [facility] URINE AND UA Leuk Est Negative Negative 02/26 STOOL (02/25/14 9:10 PM) [facility] URINE AND UA Glucose Negative Negative 02/26 STOOL (02/25/14 9:10 PM) [facility] URINE AND UA Ketones Negative Negative 02/26 STOOL *NA* /2013 [facility] (02/25/14 9:10 PM) URINE AND UA Bili Negative Negative 02/26 STOOL *NA* /2013 [facility] (02/25/14 9:10 PM) URINE AND UA Blood Small Negative 02/26 STOOL *ABN* /2013 [facility] (02/25/14 9:10 PM) URINE AND UA 0.2 0.1 - 1.0 02/26 STOOL Urobilinogen /2013 [facility] URINE AND UA Turbidity Clear Clear 02/26 STOOL (02/25/14 9:10 PM) /2013 [facility] URINE AND UA Spec Grav 1.015 <=1.030 02/26 STOOL /2013 [facility] URINE AND UA pH 5.5 5.0 - 8.0 02/26 STOOL [facility] URINE AND UA Protein Negative Negative 02/26 STOOL (02/25/14 9:10 PM) [facility] CARDIAC CK MB 1.9 0.5 - 3.6 02/26 ENZYMES [facility] CARDIAC Troponin-I 0.38 0.00 - 02/26 ENZYMES 0.40 [facility] CARDIAC Total CK 100 12 - 191 02/26 ENZYMES [facility] CARDIAC CK MB Index 1.9 0.0 - 2.5 02/26 ENZYMES [facility] CHEM PANEL Total 7.4 6.4 - 8.4 02/26 Protein [facility] CHEM PANEL Bili Total 0.6 0.2 - 1.3 02/26 [facility] CHEM PANEL Alk Phos 77 39 - 136 02/26 [facility] CHEM PANEL AST 13 0 - 37 02/26 [facility] CHEM PANEL ALT 15 0 - 65 02/26 [facility] CHEM PANEL Albumin Lvl 3.2 3.5 - 5.0 02/26 [facility] CHEM PANEL Globulin 4.2 2.0 - 4.0 02/26 [facility] CHEM PANEL A/G Ratio 0.8 0.7 - 1.6 02/26 [facility] CHEM PANEL B/C Ratio 9 6 - 25 02/26 [facility] HEMATOLOGY D-Dimer 0.81 02/26 <sup>10</sup> MH Interpretive [facility] Data: In DIC, quantitative D-Dimer is generally greater than
0 .66 ug/mL FEU. Values of quantitative D-Dimer less than
0.40 ug/mL FEU have been reported to be associated with a low
proba bility of deep vein thrombosis/pu lmonary embolism.<br/ >This test alone should not be used to rule out DVT/PE. HEMATOLOGY PTT 42.2 22.9 - 02/26 <sup>11</sup> MH 35.8 /2014 Interpretive [facility] Data: Heparin Therapeutic Range: 57 - 92 Seconds HEMATOLOGY INR 1.36 0.85 - 02/26 <sup>9</sup>I 1.17 nterpretive [facility] Data: RECOMMENDED RANGES FOR PROTIME INR:
2.0-3.0 for most medical and surgical thromboemboli c states.
2.5-3.5 for artificial heart valves and recurrent embolism.<br/ >
INR SHOULD BE USED ONLY FOR PATIENTS ON STABLE ANTICOAGULANT THERAPY. HEMATOLOGY PT 16.9 12.0 - 02/26 MH 14.7 [facility] CHEM PANEL eGFR 38 01/28 <sup>1</sup>R esult [facility] Comment: The eGFR is calculated using [...] Calcium Lvl 8.6 8.5 - 10.5 01/28 [facility] CHEM PANEL AGAP 13.1 10.0 - 01/28 MH 20.0 [facility] CHEM PANEL CO2 28 24 - 32 01/28 [facility] CHEM PANEL BUN 24 7 - 22 01/28 [facility] CHEM PANEL Glucose Lvl 99 70 - 99 01/28 <sup>4</sup>I nterpretive [facility] Data: Adult reference range values reflect the clinical guidelines
of the [place] [employer]. CHEM PANEL Chloride Lvl 106 95 - 109 01/28 [facility] CHEM PANEL Potassium 4.1 3.5 - 5.1 01/28 [facility] CHEM PANEL Sodium Lvl 143 135 - 145 01/28 [facility] CHEM PANEL Creatinine 1.7 0.5 - 1.4 01/28 [facility] CHEM PANEL Magnesium 2.1 1.8 - 2.4 01/28 Lvl /2013 [facility] CHEM PANEL Phosphorus 2.6 2.5 - 4.5 01/28 /2013 [facility] HEMATOLOGY Segs-Bands # 5.0 1.5 - 8.1 01/28 [facility] HEMATOLOGY Basophils 0.4 0.0 - 1.0 01/28 [facility] HEMATOLOGY Eosinophils 0.1 0.0 - 0.5 01/28 # /2013 [facility] HEMATOLOGY Monocytes # 0.5 0.0 - 0.8 01/28 [facility] HEMATOLOGY Lymphocytes 1.8 1.0 - 5.5 01/28 # /2013 [facility] HEMATOLOGY Lymphocytes 24.7 20.0 - 01/28 40.0 /2013 [facility] HEMATOLOGY Segs 66.4 45.0 - 01/28 75.0 /2013 [facility] HEMATOLOGY Eosinophils 1.7 0.0 - 4.0 01/28 [facility] HEMATOLOGY Monocytes 6.8 2.0 - 12.0 01/28 /2013 [facility] HEMATOLOGY MPV 10.3 7.4 - 10.4 01/28 [facility] HEMATOLOGY Platelet 79 133 - 450 01/28 [facility] HEMATOLOGY Hgb 11.3 14.0 - 01/28 18.0 /2013 [facility] HEMATOLOGY WBC 7.5 3.7 - 10.4 01/28 [facility] HEMATOLOGY RBC 3.84 4.70 - 01/28 6.10 /2013 [facility] HEMATOLOGY RDW 14.1 11.5 - 01/28 14.5 /2013 [facility] Hct 34.2 42.0 - 01/28 54.0 /2013 [facility] MCV 89.0 80.0 - 01/28 94.0 [facility] HEMATOLOGY MCH 29.3 27.0 - 01/28 31.0 [facility] HEMATOLOGY MCHC 32.9 32.0 - 01/28 36.0 /2013 [facility] CHEM PANEL Magnesium 2.0 1.8 - 2.4 01/27 l [facility] CHEM PANEL eGFR 35 01/27 <sup>2</sup>R esult [facility] Comment: The eGFR is calculated using [...] Calcium Lvl 8.3 8.5 - 10.5 01/27 [facility] CHEM PANEL CO2 29 24 - 32 01/27 [facility] CHEM PANEL AGAP 8.3 10.0 - 01/27 MH . [facility] CHEM PANEL Chloride Lvl 104 95 - 109 01/27 [facility] CHEM PANEL Potassium 4.3 3.5 - 5.1 01/27 Lv [facility] CHEM PANEL Sodium Lvl 137 135 - 145 01/27 [facility] CHEM PANEL BUN 26 7 - 22 01/27 [facility] CHEM PANEL Creatinine 1.8 0.5 - 1.4 01/27 Lvl [facility] CHEM PANEL Glucose Lvl 163 70 - 99 01/27 <sup>5</sup>I nterpretive [facility] Data: Adult reference range values reflect the clinical guidelines
of the [place] [employer]. CHEM PANEL Magnesium 1.5 1.8 - 2.4 01/27 MH Lv [facility] ELECTROLYT AGAP 11.4 10.0 - 01/27 MH ES . [facility] ELECTROLYT eGFR 35 01/27 <sup>3</sup>R MH esult [facility] Comment: The eGFR is calculated using [...] Lvl 104 95 - 109 01/27 ES [facility] ELECTROLYT Potassium 4.4 3.5 - 5.1 01/27 ES Lvl [facility] ELECTROLYT Sodium Lvl 139 135 - 145 01/27 ES [facility] ELECTROLYT Creatinine 1.8 0.5 - 1.4 01/27 ES Lvl [facility] ELECTROLYT Calcium Lvl 8.6 8.5 - 10.5 01/27 ES [facility] ELECTROLYT CO2 28 24 - 32 01/27 ES [facility] ELECTROLYT BUN 26 7 - 22 01/27 ES [facility] ELECTROLYT Glucose Lvl 112 70 - 99 01/27 <sup>6</sup>I MH nterpretive [facility] Data: Adult reference range values reflect the clinical guidelines
of the [place] [employer]. HEMATOLOGY MCH 28.8 27.0 - 01/27 MH 31.0 /2013 [facility] HEMATOLOGY MCHC 32.0 32.0 - 01/27 MH 36.0 /2013 [facility] HEMATOLOGY RDW 14.2 11.5 - 01/27 MH 14.5 /2013 [facility] HEMATOLOGY MPV 9.8 7.4 - 10.4 01/27 [facility] HEMATOLOGY Platelet 71 133 - 450 01/27 /2013 [facility] HEMATOLOGY RBC 4.06 4.70 - 01/27 MH 6.10 /2013 [facility] HEMATOLOGY WBC 6.2 3.7 - 10.4 01/27 [facility] HEMATOLOGY Hct 36.5 42.0 - 01/27 MH 54.0 /2013 [facility] HEMATOLOGY MCV 90.0 80.0 - 01/27 MH 94.0 /2013 [facility] HEMATOLOGY Hgb 11.7 14.0 - 01/27 MH 18.0 [facility] HEMATOLOGY Lymphocytes 1.6 1.0 - 5.5 01/27 MH # /2013 [facility] HEMATOLOGY Segs-Bands # 4.2 1.5 - 8.1 01/27 /2013 [facility] HEMATOLOGY Basophils 0.3 0.0 - 1.0 01/27 /2013 [facility] HEMATOLOGY Eosinophils 0.1 0.0 - 0.5 01/27 MH # /2014 [facility] HEMATOLOGY Monocytes # 0.2 0.0 - 0.8 01/27 /2013 [facility] HEMATOLOGY Basophils # 0.0 0.0 - 0.2 01/27 /2013 [facility] HEMATOLOGY Lymphocytes 26.0 20.0 - 01/27 MH 40.0 /2013 [facility] HEMATOLOGY Segs 68.2 45.0 - 01/27 MH 75.0 /2013 [facility] HEMATOLOGY Eosinophils 1.5 0.0 - 4.0 01/27 [facility] HEMATOLOGY Monocytes 4.0 2.0 - 12.0 01/27 [facility] LIPIDS CHD Risk 3.36 4.00 - 01/27 7.30 /2013 [facility] LIPIDS VLDL 23 01/27 [facility] LIPIDS LDL 69 <=99 mg/dL 01/27 (Calculated) /2013 [facility] LIPIDS HDL 39 >=61 mg/dL 01/27 [facility] LIPIDS Chol 131 <=199 01/27 mg/dL [facility] LIPIDS Trig 114 <=149 01/27 mg/dL /2013 [facility] TOXICOLOGY Digoxin Lvl 1.2 0.8 - 2.0 01/27 [facility] URINE AND UA <=1.0 0.1 - 1.0 01/26 STOOL Urobilinogen /2013 [facility] URINE AND UA Sq Epi None Seen 01/26 STOOL [facility] URINE AND UA WBC <1 0 - 5 01/26 STOOL /2013 [facility] URINE AND UA Spec Grav 1.005 <=1.030 01/26 STOOL /2013 [facility] URINE AND UA Turbidity Clear Clear 01/26 STOOL (01/26/14 9:15 AM) /2013 [facility] est URINE AND UA Color Colorless Yellow 01/26 STOOL *NA* /2013 [facility] (01/26/14 9:15 AM) URINE AND UA Glucose Negative Negative 01/26 STOOL mg/dL mg/dL /2013 [facility] URINE AND UA Protein Negative Negative 01/26 STOOL mg/dL mg/dL /2013 [facility] URINE AND UA pH 7.0 5.0 - 8.0 01/26 STOOL /2013 [facility] URINE AND UA Leuk Est Negative Negative 01/26 STOOL (01/26/14 9:15 AM) /2013 [facility] URINE AND UA Blood Negative Negative 01/26 STOOL (01/26/14 9:15 AM) [facility] est URINE AND UA Bili Negative Negative 01/26 STOOL *NA* /2013 [facility] (01/26/14 9:15 AM) URINE AND UA Nitrite Negative Negative 01/26 STOOL (01/26/14 9:15 AM) [facility] est URINE AND UA Ketones Negative Negative 01/26 STOOL mg/dL mg/dL [facility] ANEMIA Folate Lvl 10.9 >=3.0 01/26 STUDY ng/mL /2013 [facility] ANEMIA Vitamin B12 475 254 - 1320 01/26 STUDY Lvl /2013 [facility] CARDIAC BNP 617 <=100 01/26 <sup>7</sup>I ENZYMES pg/mL /2013 nterpretive [facility] Data: Elevated results are in line with increasing severity of
con gestive heart failure. Minor elevations between 100 and 300
may be seen with Myocardial Ischemia, Sodium retaining drugs,
an d compensated/t reated heart failure. CARDIAC Troponin-I 0.28 0.00 - 01/26 ENZYMES 0.40 /2013 [facility] CARDIAC Total CK 88 12 - 191 01/26 ENZYMES [facility] CARDIAC CK MB Index 3.0 0.0 - 2.5 01/26 ENZYMES [facility] CARDIAC CK MB 2.6 0.5 - 3.6 01/26 ENZYMES [facility] CHEM PANEL Phosphorus 2.6 2.5 - 4.5 01/26 [facility] CHEM PANEL Bili 0.5 0.0 - 1.0 01/26 Indirect [facility] CHEM PANEL A/G Ratio 0.9 0.7 - 1.6 01/26 [facility] CHEM PANEL Globulin 4.1 2.0 - 4.0 01/26 [facility] CHEM PANEL Bili Total 0.7 0.2 - 1.3 01/26 [facility] CHEM PANEL Bili Direct 0.2 0.0 - 0.3 01/26 [facility] CHEM PANEL AST 15 0 - 37 01/26 [facility] CHEM PANEL Alk Phos 78 39 - 136 01/26 [facility] CHEM PANEL Total 7.6 6.4 - 8.4 01/26 Protein [facility] CHEM PANEL Albumin Lvl 3.5 3.5 - 5.0 01/26 /2013 [facility] CHEM PANEL ALT 17 0 - 65 01/26 /2013 [facility] HEMATOLOGY Platelet 84 133 - 450 01/26 /2013 [facility] HEMATOLOGY MPV 9.8 7.4 - 10.4 01/26 /2013 [facility] WBC 6.6 3.7 - 10.4 01/26 /2013 [facility] MCH 29.2 27.0 - 01/26 MH 31.0 /2013 [facility] MCHC 32.7 32.0 - 01/26 MH 36.0 /2013 [facility] HEMATOLOGY RDW 14.3 11.5 - 01/26 MH 14.5 /2013 [facility] HEMATOLOGY MCV 89.2 80.0 - 01/26 MH 94.0 /2013 [facility] HEMATOLOGY Hgb 13.2 14.0 - 01/26 MH 18.0 [facility] Hct 40.4 42.0 - 01/26 54.0 /2013 [facility] RBC 4.53 4.70 - 01/26 MH 6.10 [facility] INR 1.23 0.85 - 01/26 <sup>8</sup>I MH 1. nterpretive [facility] Data: RECOMMENDED RANGES FOR PROTIME INR:
2.0-3.0 for most medical and surgical thromboemboli c states.
2.5-3.5 for artificial heart valves and recurrent embolism.<br/ >
INR SHOULD BE USED ONLY FOR PATIENTS ON STABLE ANTICOAGULANT THERAPY. HEMATOLOGY PT 15.6 12.0 - 01/26 MH 14.7 /2013 [facility] HEMATOLOGY Eosinophils 1.6 0.0 - 4.0 01/26 /2013 [facility] HEMATOLOGY Monocytes 4.6 2.0 - 12.0 01/26 /2013 [facility] HEMATOLOGY Segs-Bands # 4.4 1.5 - 8.1 01/26 /2013 [facility] HEMATOLOGY Basophils 0.7 0.0 - 1.0 01/26 /2013 [facility] HEMATOLOGY Eosinophils 0.1 0.0 - 0.5 01/26 MH # /2013 [facility] HEMATOLOGY Lymphocytes 1.8 1.0 - 5.5 01/26 MH # /2014 [facility] Monocytes # 0.3 0.0 - 0.8 01/26 /2013 [facility] Lymphocytes 27.2 20.0 - 01/26 MH 40.0 /2013 [facility] HEMATOLOGY Segs 65.9 45.0 - 01/26 MH 75.0 /2014 [facility] THYROID TSH 2.320 0.360 - 01/26 PANEL 3.740 [facility] Microbiolo Culture: AFB 07/21 Sugar gy w/Smear [facility] Microbiolo Culture: CMV 07/21 Sugar gy ([place] Antigen) Microbiolo Culture: 07/21 Sugar gy Fungal [place] w/Smear Microbiolo Culture: 07/21 Sugar gy Herpes [facility] Simplex Virus Microbiolo Culture: 07/21 Sugar gy Respiratory [place] w/Gram Stain Microbiolo Culture: 07/21 Sugar gy Viral [facility] Complete CHEMISTRY BNP 195 <=100 02/26 HI <sup>8</sup>I nterpretive [facility] Data: Elevated results are in line with increasing severity of
conge stive heart failure. Minor elevations between 100 and 300
may be seen with Myocardial Ischemia, Sodium retaining drugs,
and compensated/t reated heart failure. CHEMISTRY eGFR 84 02/26 NA <sup>2</sup>R esult [facility] Comment: The eGFR is calculated using [...] - 5.1 02/26 Normal MH Lvl /2011 [facility] CHEMISTRY Chloride Lvl 102 95 - 109 02/26 Normal MH [facility] CHEMISTRY Sodium Lvl 142 135 - 145 02/26 Normal [facility] CHEMISTRY Creatinine 1.0 0.5 - 1.4 10 Normal MH Lvl /2011 [facility] CHEMISTRY BUN 17 7 - 22 10 Normal MH [facility] CHEMISTRY Glucose Lvl 84 70 - 99 02/26 Normal <sup>5</sup>I MH /2011 nterpretive [facility] Data: Adult reference range values reflect the clinical guidelines
of the [place] [employer]. CHEMISTRY Calcium Lvl 7.9 8.5 - 10.5 10 LOW MH /2011 [facility] CHEMISTRY CO2 28 24 - 32 10 Normal MH /2011 [facility] CHEMISTRY AGAP 15.8 10.0 - 10 Normal MH 20.0 [facility] HEMATOLOGY Monocytes 8.3 2.0 - 12.0 10 Normal MH /2011 [facility] HEMATOLOGY Eosinophils 3.1 0.0 - 4.0 02/26 Normal MH /2011 [facility] HEMATOLOGY Segs 44.7 45.0 - 02/26 LOW MH 75.0 /2011 [facility] HEMATOLOGY Lymphocytes 43.6 20.0 - 02/26 HI MH 40.0 [facility] HEMATOLOGY Plt Morph Normal 02/26 Normal MH (02/27/2012 05:30:00) /2011 [facility] HEMATOLOGY Basophils # 0.0 0.0 - 0.2 10 Normal MH /2011 [facility] HEMATOLOGY Eosinophils 0.1 0.0 - 0.5 02/26 Normal MH # /2011 [facility] HEMATOLOGY Lymphocytes 2.0 1.0 - 5.5 02/26 Normal MH # /2011 [facility] HEMATOLOGY Monocytes # 0.4 0.0 - 0.8 02/26 Normal MH /2011 [facility] HEMATOLOGY Basophils 0.3 0.0 - 1.0 02/26 Normal MH /2011 [facility] HEMATOLOGY Segs-Bands # 2.0 1.5 - 8.1 02/26 Normal MH /2011 [facility] HEMATOLOGY Elliptocyte Slight None Seen 02/26 ABN MH *ABN* /2011 [facility] (02/27/2012 05:30:00) HEMATOLOGY MPV 9.9 7.4 - 10.4 02/26 Normal MH /2011 [facility] HEMATOLOGY MCH 31.3 27.0 - 10 HI MH 31.0 [facility] HEMATOLOGY MCHC 33.7 32.0 - 10 Normal MH 36.0 [facility] HEMATOLOGY RDW 14.8 11.5 - 02/26 HI MH 14.5 [facility] HEMATOLOGY Platelet 34 133 - 450 10/20 LOW MH /2011 [facility] HEMATOLOGY MCV 92.9 80.0 - 02/26 Normal MH 94.0 [facility] HEMATOLOGY WBC 4.6 3.7 - 10.4 02/26 Normal MH /2011 [facility] HEMATOLOGY RBC 3.40 4.70 - 02/26 LOW MH 6. [facility] HEMATOLOGY Hgb 10.6 14.0 - 02/26 LOW MH 18.0 [facility] HEMATOLOGY Hct 31.6 42.0 - 02/26 LOW MH 54.0 [facility] CHEMISTRY BNP 157 <=100 02/25 HI <sup>9</sup>I nterpretive [facility] Data: Elevated results are in line with increasing severity of
conge stive heart failure. Minor elevations between 100 and 300
may be seen with Myocardial Ischemia, Sodium retaining drugs,
and compensated/t reated heart failure. CHEMISTRY Potassium 3.9 3.5 - 5.1 02/25 Normal <sup>1</sup>R MH Lvl [facility] Comment: Specimen Slightly Hemolyzed. CHEMISTRY AGAP 11.9 10.0 - 02/25 Normal MH 20.0 [facility] CHEMISTRY Calcium Lvl 7.7 8.5 - 10.5 02/25 LOW MH [facility] CHEMISTRY Glucose Lvl 111 70 - 99 02/25 HI <sup>6</sup>I nterpretive [facility] Data: Adult reference range values reflect the clinical guidelines
of the [place] [employer]. CHEMISTRY eGFR 68 02/25 NA <sup>3</sup>R [facility] Comment: The eGFR is calculated using [...] 26 7 - 22 02/25 HI MH [facility] CHEMISTRY Creatinine 1.2 0.5 - 1.4 02/25 Normal MH Lvl /2011 [facility] CHEMISTRY Sodium Lvl 138 135 - 145 02/25 Normal [facility] CHEMISTRY Chloride Lvl 99 95 - 109 02/25 Normal MH [facility] CHEMISTRY CO2 31 24 - 32 02/25 Normal MH [facility] CHEMISTRY Total CK 149 12 - 191 02/25 Normal [facility] CHEMISTRY Troponin-I 0.11 0.00 - 10 Normal MH 0.40 [facility] CHEMISTRY CK MB 1.5 0.5 - 3.6 02/25 Normal MH [facility] CHEMISTRY CK MB Index 1.0 0.0 - 2.5 02/25 Normal [facility] CHEMISTRY CK MB Index 1.3 0.0 - 2.5 02/25 Normal [facility] CHEMISTRY Globulin 3.2 2.0 - 4.0 02/25 Normal MH [facility] CHEMISTRY A/G Ratio 0.8 0.7 - 1.6 02/25 Normal [facility] CHEMISTRY AGAP 12.5 10.0 - 10 Normal MH 20.0 [facility] CHEMISTRY B/C Ratio 22 6 - 25 02/25 Normal MH [facility] CHEMISTRY Total 5.8 6.4 - 8.4 02/25 LOW MH [facility] CHEMISTRY AST 20 0 - 37 02/25 Normal [facility] CHEMISTRY Calcium Lvl 7.8 8.5 - 10.5 02/25 LOW MH [facility] CHEMISTRY Bili Total 0.6 0.2 - 1.3 02/25 Normal [facility] CHEMISTRY CO2 30 24 - 32 02/25 Normal MH [facility] CHEMISTRY eGFR 48 02/25 NA <sup>4</sup>R esult [facility] Comment: The eGFR is calculated using [...] BUN 36 7 - 22 02/25 HI [facility] CHEMISTRY Glucose Lvl 91 70 - 99 02/25 Normal <sup>7</sup>I nterpretive [facility] Data: Adult reference range values reflect the clinical guidelines
of the [place] [employer]. CHEMISTRY Albumin Lvl 2.6 3.5 - 5.0 02/25 LOW [facility] CHEMISTRY Alk Phos 33 39 - 136 02/25 LOW [facility] CHEMISTRY ALT 15 0 - 65 02/25 Normal [facility] CHEMISTRY Potassium 3.5 3.5 - 5.1 02/25 Normal [facility] CHEMISTRY Chloride Lvl 99 95 - 109 02/25 Normal [facility] CHEMISTRY Creatinine 1.6 0.5 - 1.4 02/25 [facility] Lvl [facility] CHEMISTRY Sodium Lvl 138 135 - 145 02/25 Normal [facility] CHEMISTRY Hgb A1C 5.6 02/25 NA <sup>10</sup> Interpretive [facility] Data: HbA1C% eAG(mg/dL) Interpretatio n
6.0 [...] LDL 41 0 - 129 02/25 Normal [facility] CHEMISTRY HDL 39 >=35 02/25 Normal [facility] CHEMISTRY Trig 92 0 - 200 02/25 Normal [facility] CHEMISTRY Chol 98 120 - 200 02/25 LOW MH [facility] CHEMISTRY CHD Risk 2.51 4.00 - 02/25 LOW 7. [facility] CHEMISTRY Total CK 128 12 - 191 02/25 Normal [facility] CHEMISTRY Troponin-I 0.10 0.00 - 02/25 Normal 0.40 [facility] CHEMISTRY CK MB 1.7 0.5 - 3.6 02/25 Normal [facility] CHEMISTRY CK MB Index 0.4 0.0 - 2.5 02/25 Normal [facility] CHEMISTRY Total CK 291 12 - 191 02/25 HI MH [facility] CHEMISTRY LDL 13 0 - 129 02/25 Normal [facility] CHEMISTRY HDL 42 >=35 02/25 Normal MH [facility] CHEMISTRY CHD Risk 1.95 4.00 - 02/25 LOW . [facility] CHEMISTRY Chol 82 120 - 200 02/25 LOW MH [facility] CHEMISTRY Trig 137 0 - 200 02/25 Normal [facility] CHEMISTRY Troponin-I 0.09 0.00 - 02/25 Normal 0.40 [facility] CHEMISTRY CK MB 1.1 0.5 - 3.6 02/25 Normal MH [facility] BEDSIDE Gluc POC 177 70 - 99 12/07 HI <sup>2</sup>I [facility] Data: [place] Reportable Limit: 200 mg/dL. BEDSIDE Gluc POC 174 70 - 99 12/07 HI <sup>3</sup>I [facility] Data: [place] Reportable Limit: 200 mg/dL. BEDSIDE Comment1 Notify 12/07 [facility] GLUCOSE RN/ /2011 [facility] BEDSIDE Comment1 Notify 12/07 [facility] GLUCOSE RN/ /2012 [facility] BEDSIDE Gluc POC 197 70 - 99 12/07 HI <sup>4</sup>I [facility] Data: [place] Reportable Limit: 200 mg/dL. BEDSIDE Comment1 Notify 12/06 [facility] GLUCOSE [place]/ /2012 [facility] CHEMISTRY AGAP 14.5 10.0 - 12/06 Normal [facility] 20.0 [facility] Center CHEMISTRY Sodium [...] values reflect the clinical guidelines
of the [place] [employer]. CHEMISTRY Calcium Lvl 8.7 8.5 - 10.5 12/06 [place] [facility] CHEMISTRY CO2 31 24 - 32 12/06 Normal [facility] CHEMISTRY Potassium 4.5 3.5 - 5.1 12/06 Normal [place] Lvl [facility] CHEMISTRY Chloride Lvl 103 95 - 109 12/06 Normal [facility] HEMATOLOGY WBC 13.2 3.7 - 10.4 12/06 [facility] Medical Center HEMATOLOGY Hct 31.9 42.0 - 12/06 LOW [place] 54.0 /2011 [facility] HEMATOLOGY RBC 3.40 4.70 - 12/06 LOW [place] 6.10 [facility] HEMATOLOGY Hgb 10.6 14.0 - 12/06 LOW [place] 18.0 [facility] HEMATOLOGY MCV 93.7 80.0 - 12/06 Normal [place] 94.0 [facility] HEMATOLOGY MCH 31.1 27.0 - 12/06 [facility] [place] 31.0 Medical Center HEMATOLOGY Platelet 133 133 - 450 12/06 Normal [facility] HEMATOLOGY MCHC 33.2 32.0 - 12/06 Normal [place] 36.0 /2011 [facility] HEMATOLOGY RDW 17.0 11.5 - 12/06 [facility] [place] 14.5 Medical Center HEMATOLOGY MPV [...] values reflect the clinical guidelines
of the [place] [employer]. CHEMISTRY BUN 28 7 - [...] 118 133 - 450 12/05 LOW Medical [place] HEMATOLOGY MCHC 33.5 32.0 - 12/05 Normal [place] 36.0 [facility] Center HEMATOLOGY RDW 16.1 11.5 - 12/05 [facility] [place] 14.5 Medical Center HEMATOLOGY WBC 11.9 3.7 - 10.4 12/05 [facility] Medical [place] HEMATOLOGY RBC 3.30 4.70 - 12/05 LOW [place] 6.10 /2011 [facility] Center HEMATOLOGY Lymphocytes 5.5 20.0 - 12/05 LOW [place] 40.0 /2011 [facility] HEMATOLOGY Monocytes 5.8 2.0 - 12.0 12/05 Normal [facility] HEMATOLOGY Segs 88.6 45.0 - 12/05 [facility] [place] 75.0 [facility] Center HEMATOLOGY Eosinophils 0.0 0.0 - 0.5 12/05 [place] [facility] HEMATOLOGY Basophils # 0.0 0.0 - 0.2 12/05 [place] [facility] HEMATOLOGY Monocytes # 0.7 0.0 - 0.8 12/05 [place] [facility] HEMATOLOGY Basophils 0.1 0.0 - 1.0 12/05 Normal Medical [place] HEMATOLOGY Segs-Bands # 10.5 1.5 - 8.1 12/05 [facility] HEMATOLOGY Eosinophils 0.0 0.0 - 4.0 12/05 [place] [facility] HEMATOLOGY Lymphocytes 0.7 1.0 - 5.5 12/05 [place] # /2011 [facility] HEMATOLOGY Platelet 119 133 - 450 12/05 [facility] Medical Center HEMATOLOGY PTT 24.0 22.9 - 12/04 Normal <sup>11[place]sup> [place] 35[place] /2011 Interpretive Medical Data: [facility] Therapeutic Range: 57 - 92 [facility] HEMATOLOGY PT 15.0 12.0 - 12/04 [facility] 14.7 [facility] HEMATOLOGY INR 1.18 0.85 - 12/04 HI <sup>8</sup>I [place] 1.17 nterpretive Medical Data: Center RECOMMENDED RANGES FOR PROTIME INR:
2.0-3.0 for most medical and surgical thromboemboli c states.
2.5-3.5 for artificial heart valves and recurrent embolism.<br/ >
INR SHOULD BE USED ONLY FOR PATIENTS ON STABLE ANTICOAGULANT THERAPY. BACTERIAL MRSA by PCR Negative 1 12/04 Normal <sup>1</sup>I [facility] - SEROLOGY (12/05/2011 01:58:00) nterpre tive Medical [...] Ion mgdL 5.04 4. - 12/04 Normal [facility] 5. [facility] CHEMISTRY Ca Norm mgdL 5.00 4. - 12/04 Normal [facility] 5. [facility] CHEMISTRY Ca Ion 1.26 1. - 12/04 Normal [facility] 1. [facility] CHEMISTRY Ca Norm 1.25 1. - 12/04 Normal [facility] 1. [facility] CHEMISTRY Phosphorus 4.0 2.5 - 4.5 12/04 Normal [facility] CHEMISTRY Magnesium 1.9 1.8 - 2.4 12/04 Normal [facility] CHEMISTRY Calcium Lvl 9.0 8.5 - 10.5 12/04 [place] [facility] CHEMISTRY CO2 27 24 - 32 12/04 Normal [facility] CHEMISTRY Chloride Lvl 104 95 - 109 12/04 Normal [facility] CHEMISTRY Glucose Lvl 170 70 - 99 12/04 [place] <sup>7</sup>I [place] nterpretive Medical Data: Adult Center reference range values reflect the clinical guidelines
of the [place] [employer]. CHEMISTRY Sodium Lvl 144 135 - 145 12/04 Normal [facility] CHEMISTRY Creatinine 1.4 0.5 - 1.4 12/04 Normal [facility] CHEMISTRY Potassium 4.1 3.5 - 5.1 12/04 Normal [facility] CHEMISTRY BUN 24 7 - 22 12/04 HI [facility] CHEMISTRY AGAP 17.1 10.0 - 12/04 Normal [place] 20.0 Medical Center HEMATOLOGY Eosinophils 0.0 0.0 - 0.5 12/04 [place] [facility] HEMATOLOGY Basophils # 0.0 0.0 - 0.2 12/04 [place] [facility] HEMATOLOGY Monocytes # 0.3 0.0 - 0.8 12/04 [place] [facility] HEMATOLOGY Monocytes 3.1 2.0 - 12.0 12/04 Normal [facility] HEMATOLOGY Lymphocytes 0.7 1.0 - 5.5 [...] 14.7 12.0 - 12/04 Normal [place] 14.7 [facility] HEMATOLOGY PTT 24.4 22.9 - 12/04 Normal <sup>12</sup> [place] 35.[place] Interpretive Medical Data: [facility] Therapeutic Range: 57 - 92 Seconds HEMATOLOGY RDW 16.1 11.5 - 12/04 [facility] 14.5 [facility] HEMATOLOGY MCHC 32.8 32.0 - 12/04 Normal [place] 36.0 [facility] HEMATOLOGY WBC 10.3 3.7 - 10.4 12/04 Normal [facility] HEMATOLOGY MCV 94.1 80.0 - 12/04 [facility] [place] 94.0 [facility] HEMATOLOGY Hct 31.7 42.0 - 12/04 [facility] 54.0 [facility] HEMATOLOGY MCH 30.9 27.0 - 12/04 Normal [facility] 31.0 [facility] HEMATOLOGY MPV 7.9 7.4 - 10.4 12/04 Normal [facility] HEMATOLOGY Hgb 10.4 14.0 - 12/04 [facility] 18.0 [facility] HEMATOLOGY RBC 3.37 4.70 - 12/04 [facility] [place] 6.10 [facility] CHEMISTRY POC A Glu 138 70 - 99 12/04 [facility] CHEMISTRY POC A Na 139 135 - 145 12/04 Normal [facility] CHEMISTRY POC A K 3.5 3.5 - 5.1 12/04 Normal [facility] CHEMISTRY POC A Hct 33.0 42.0 - 12/04 [facility] [place] 54.0 [facility] CHEMISTRY POC A O2 Sat 100.0 95.0 - 12/04 [facility] [place] 100.0 [facility] CHEMISTRY POC A LA 1.6 0.5 - 2.2 12/04 Normal [facility] CHEMISTRY POC A Ca Ion 1.17 1.16 - 12/04 [facility] 1.30 Medical Center CHEMISTRY POC A BE 4 -2-2 - 2 12/04 [place] [facility] CHEMISTRY POC A HCO3 29 22 - 26 12/04 [facility] Medical Center CHEMISTRY POC A PCO2 46 35 - 45 12/04 [facility] Medical Center CHEMISTRY POC A PO2 258 80 - 100 12/04 [facility] Medical Center CHEMISTRY POC A Temp 37.0 12/04 NA Medical Center CHEMISTRY POC A Source ART 12/04 NA Medical Center CHEMISTRY POC A pH 7.41 7.35 - 12/04 Normal [place] 7. Medical Center CHEMISTRY POC A Glu 104 70 - 99 12/04 [facility] Medical Center CHEMISTRY POC A LA 1.2 0.5 - 2.2 12/04 Normal Medical Center CHEMISTRY POC A Ca Ion 1.21 1.16 - 12/04 Normal 1.30 Medical Center CHEMISTRY POC A BE 4 -2-2 - 2 12/04 [facility] Medical Center CHEMISTRY POC A Source ART 12/04 NA Medical Center CHEMISTRY POC A HCO3 29 22 - 26 12/04 [facility] Medical Center CHEMISTRY POC A PO2 299 80 - 100 12/04 [facility] Medical Center CHEMISTRY POC A PCO2 [...] A Glu 103 70 - 99 12/04 [facility] Medical Center CHEMISTRY POC A LA 1.3 0.5 - 2.2 12/04 Normal Medical [place] CHEMISTRY POC A BE 9 -2-2 - 2 12/04 [facility] Medical Center CHEMISTRY POC A O2 Sat 100.0 95.0 - 12/04 Normal [facility] 100.0 Medical [place] CHEMISTRY POC A Ca Ion 1.22 1.16 - 12/04 Normal [facility] 1.30 Medical Center CHEMISTRY POC A Temp 37.0 12/04 NA [facility] CHEMISTRY POC A HCO3 34 22 - 26 12/04 [facility] CHEMISTRY POC A pH 7.46 7.35 - 12/04 [facility] 7.45 [facility] CHEMISTRY POC A Source ART 12/04 NA [facility] CHEMISTRY POC A PCO2 48 35 - 45 12/04 [facility] CHEMISTRY POC A PO2 267 80 - 100 12/04 [facility] Medical Center HEMATOLOGY PTT 23.5 22.9 - 12/03 Normal <sup>[place]sup[place] 35.[place] Interpretive Medical Data: [facility] Therapeutic Range: 57 - 92 Seconds HEMATOLOGY PT 14.0 12.0 - 12/03 Normal [facility] 14.7 Medical Center HEMATOLOGY INR 1.08 0.85 - 12/03 Normal <sup>10[place]sup[place] 1[place] Interpretive Medical Data: Center RECOMMENDED RANGES FOR PROTIME INR:
2.0-3.0 for most medical and surgical thromboemboli c states.
2.5-3.5 for artificial heart valves and recurrent embolism.<br/ >
INR SHOULD BE USED ONLY FOR PATIENTS ON STABLE ANTICOAGULANT THERAPY. HEMATOLOGY Polychrom Slight None Seen 12/03 Normal [facility] (12/04/2011 16:00:00) Tn dical Center HEMATOLOGY Hypochrom Slight None Seen 12/03 Normal [facility] (12/04/2011 16:00:00) Tn dical Center HEMATOLOGY Target Cell Slight None Seen 12/03 [facility] [place] *ABN* Medical (12/04/2011 16:00:00) Ce nter HEMATOLOGY Elliptocyte Slight None Seen 12/03 [facility] [place] *ABN* Medical (12/04/2011 16:00:00) Ce nter HEMATOLOGY Plt Morph Normal 12/03 Normal [place] (12/04/2011 16:00:00) [facility] BLOOD BANK ABO/Rh AB POS 12/03 Unknown [place] RESULTS /2011 [facility] BLOOD BANK Antibody Negative 12/03 Normal [facility] RESULTS Scrn (12/04/2011 00:15:00) [facility] BLOOD BANK RBC product Product available 12/02 Normal [facility] RESULTS (12/03/2011 17:56:00) [facility] CHEMISTRY Phosphorus 2.7 2.5 - 4.5 11/30 [facility] CHEMISTRY Magnesium 1.7 1.8 - 2.4 11/30 LOW [facility] BEDSIDE Gluc [...] values reflect the clinical guidelines of the [place] [employer]. CHEMISTRY Calcium Lvl 8.1 8.5 [...] Gluc POC 146 70 - 99 08/27 [place] <sup>3</sup>I Sugar GLUCOSE [facility] /2011 [place] [...] values reflect the clinical guidelines of the [place] [employer]. CHEMISTRY BUN 17 7 - [...] [place] HEMATOLOGY INR 1.79 0.85 - 08/26 [facility] <sup>8</sup>I S[place] r 1.17 nterpretive [place] Data: [...] [place] HEMATOLOGY MCH 31.1 27.0 - 08/26 [facility] Sugar 31.0 /2011 [place] HEMATOLOGY WBC [...] values reflect the clinical guidelines of the [place] [employer]. CHEMISTRY Creatinine 1.7 0.5 - [...] THERAPY. HEMATOLOGY PT 20.9 12.0 - 08/26 [facility] Sugar 14.7 /2011 [place] HEMATOLOGY PTT [...] [place] HEMATOLOGY MCH 31.1 27.0 - 08/26 [facility] Sugar 31.0 /2011 [place] HEMATOLOGY MCV [...] - 4.0 08/26 Normal [place] /2011 [facility] HEMATOLOGY Lymphocytes 34.5 20.0 - 08/26 Normal Sugar 40.0 /2011 [facility] HEMATOLOGY Segs 58.1 45.0 - 08/26 Normal Sugar 75.0 /2011 [facility] HEMATOLOGY RBC Morph Normal 08/26 Normal [place] (08/26/2011 20:25:00) /[place] Gluc POC 105 65 - 110 07/07 Normal <sup>1</sup>I GLUCOSE [facility] /2011 nterpretive [facility] TESTING Data: Upper Reportable Limit: 200 mg/dL. BEDSIDE Comment1 Notify 07/07 NA GLUCOSE RN/MD [facility] TESTING CHEMISTRY Hgb A1C 6.2 07/07 NA <sup>9</sup>I nterpretive [facility] Data: HbA1C% eAG(mg/dL) Interpretatio n 6.0 [...] AGAP 16.6 10.0 - 07/07 Normal 20.0 [facility] CHEMISTRY Calcium Lvl 9.0 8.5 - 10.5 07/07 Normal [facility] CHEMISTRY Creatinine 1.0 0.5 - 1.4 07/07 Normal Lvl [facility] CHEMISTRY BUN 21 7 - 22 07/07 Normal [facility] CHEMISTRY Potassium 4.6 3.5 - 5.1 07/07 Normal <sup>4</sup>R Lvl esult [facility] Comment: Specimen Moderately Hemolyzed. CHEMISTRY Sodium Lvl 139 135 - 145 07/07 Normal [facility] CHEMISTRY Glucose Lvl 100 07/07 NA <sup>5</sup>I nterpretive [facility] Data: Reference Ranges : 0 - 7 days : 41 - 90 mg/dL 7 days - 150 yrs : 70 - 99 mg/dL (fasting), based on the clinical recommendatio ns of the [place] [employer]. CHEMISTRY Chloride Lvl 100 95 - 109 07/07 Normal /2011 [facility] CHEMISTRY CO2 27 24 - 32 07/07 Normal /2011 [facility] HEMATOLOGY MPV 9.4 7.4 - 10.4 07/07 Normal /2011 [facility] HEMATOLOGY Platelet 49 133 - 450 07/07 LOW MH /2011 [facility] HEMATOLOGY MCHC 33.1 32.0 - 07/07 Normal MH 36.0 /2011 [facility] HEMATOLOGY RDW 14.4 11.5 - 07/07 Normal MH 14.5 /2011 [facility] HEMATOLOGY Hct 39.9 42.0 - 07/07 LOW MH 54.0 /2011 [facility] HEMATOLOGY WBC 6.3 3.7 - 10.4 07/07 Normal /2011 [facility] HEMATOLOGY RBC 4.26 4.70 - 07/07 LOW MH 6.10 /2011 [facility] HEMATOLOGY Hgb 13.2 14.0 - 07/07 LOW MH 18.0 /2011 [facility] HEMATOLOGY MCV 93.7 80.0 - 07/07 Normal MH 94.0 /2011 [facility] HEMATOLOGY MCH 31.0 27.0 - 07/07 Normal MH 31.0 [facility] HEMATOLOGY Large Plt Slight None Seen 07/07 ABN MH *ABN* /2011 [facility] (07/07/2011 07:00:00) HEMATOLOGY Elliptocyte Slight None Seen 07/07 ABN MH *ABN* /2011 [facility] (07/07/2011 07:00:00) HEMATOLOGY Polychrom Slight None Seen 07/07 Normal MH (07/07/2011 07:00:00) /2011 [facility] HEMATOLOGY Basophils # 0.0 0.0 - 0.2 07/07 Normal [facility] HEMATOLOGY Eosinophils 0.2 0.0 - 0.5 07/07 Normal MH # /2011 [facility] HEMATOLOGY Segs-Bands # 3.4 1.5 - 8.1 07/07 Normal /2011 [facility] HEMATOLOGY Basophils 0.4 0.0 - 1.0 07/07 Normal /2011 [facility] HEMATOLOGY Monocytes # 0.4 0.0 - 0.8 07/07 Normal /2011 [facility] HEMATOLOGY Lymphocytes 2.3 1.0 - 5.5 07/07 Normal MH # /2011 [facility] HEMATOLOGY Eosinophils 3.1 0.0 - 4.0 07/07 Normal [facility] HEMATOLOGY Monocytes 5.8 2.0 - 12.0 07/07 Normal [facility] HEMATOLOGY Lymphocytes 36.1 20.0 - 07/07 Normal MH 40.0 /2011 [facility] HEMATOLOGY Segs 54.6 45.0 - 07/07 Normal MH 75.0 /2011 [facility] BEDSIDE Gluc POC 109 65 - 110 07/07 Normal <sup>2</sup>I GLUCOSE [facility] /2011 nterpretive [facility] TESTING Data: Upper Reportable Limit: 200 mg/dL. BEDSIDE Comment1 Notify 07/07 NA GLUCOSE RN/ /2011 [facility] TESTING BEDSIDE Comment1 Notify 07/06 NA GLUCOSE RN/MD /2011 [facility] TESTING BEDSIDE Gluc POC 86 65 - 110 07/06 Normal <sup>3</sup>I GLUCOSE [facility] /2011 nterpretive [facility] TESTING Data: Upper Reportable Limit: 200 mg/dL. CHEMISTRY TSH 2.680 0.360 - 07/06 Normal MH 3.740 /2011 [facility] CHEMISTRY CHD Risk 2.64 4.00 - 07/06 LOW MH 7.30 [facility] CHEMISTRY LDL 44 0 - 129 07/06 Normal [facility] CHEMISTRY HDL 39 >=35 07/06 Normal [facility] CHEMISTRY Trig 100 0 - 200 07/06 Normal [facility] CHEMISTRY Chol 103 120 - 200 07/06 LOW /2011 [facility] CHEMISTRY Total 7.3 6.4 - 8.4 07/06 Normal MH [facility] CHEMISTRY Albumin Lvl 3.7 3.5 - 5.0 07/06 Normal [facility] CHEMISTRY Alk Phos 51 39 - 136 07/06 Normal [facility] CHEMISTRY ALT 16 0 - 65 07/06 Normal [facility] CHEMISTRY Globulin 3.6 2.0 - 4.0 07/06 Normal [facility] CHEMISTRY A/G Ratio 1.0 0.7 - 1.6 07/06 Normal [facility] CHEMISTRY AST 12 0 - 37 07/06 Normal [facility] CHEMISTRY Bili Total 0.4 0.2 - 1.3 07/06 Normal [facility] CHEMISTRY Calcium Lvl 8.8 8.5 - 10.5 07/06 Normal [facility] CHEMISTRY AGAP 13.5 10.0 - 07/06 Normal MH 20.0 /2011 [facility] CHEMISTRY B/C Ratio 17 6 - 25 07/06 Normal [facility] CHEMISTRY BUN 20 7 - 22 07/06 Normal [facility] CHEMISTRY Glucose Lvl 149 07/06 NA <sup>6</sup>I nterpretive [facility] Data: Reference Ranges : 0 - 7 days : 41 - 90 mg/dL 7 days - 150 yrs : 70 - 99 mg/dL (fasting), based on the clinical recommendatio ns of the [place] [employer]. CHEMISTRY CO2 28 24 - 32 07/06 Normal [facility] CHEMISTRY Creatinine 1.2 0.5 - 1.4 07/06 Normal MH Lvl /2011 [facility] CHEMISTRY Potassium 3.5 3.5 - 5.1 07/06 Normal MH Lvl /2011 [facility] CHEMISTRY Chloride Lvl 103 95 - 109 07/06 Normal [facility] CHEMISTRY Sodium Lvl 141 135 - 145 07/06 Normal [facility] CHEMISTRY CK MB Index 0.9 0.0 - 2.5 07/06 Normal [facility] CHEMISTRY Troponin-I 0.19 0.00 - 07/06 Normal MH 0.40 [facility] CHEMISTRY CK MB 0.7 0.5 - 3.6 07/06 Normal [facility] CHEMISTRY Total CK 75 12 - 191 07/06 Normal [facility] HEMATOLOGY MCV 93.0 80.0 - 07/06 Normal MH 94.0 /2011 [facility] HEMATOLOGY MCHC 33.8 32.0 - 07/06 Normal MH 36.0 /2011 [facility] HEMATOLOGY MCH 31.4 27.0 - 07/06 HI MH 31.0 /2011 [facility] HEMATOLOGY Hgb 12.4 14.0 - 07/06 LOW MH 18.0 /2011 [facility] HEMATOLOGY Hct 36.7 42.0 - 07/06 LOW MH 54.0 /2011 [facility] HEMATOLOGY MPV 9.7 7.4 - 10.4 07/06 Normal /2011 [facility] HEMATOLOGY RDW 14.1 11.5 - 07/06 Normal MH 14.5 /2011 [facility] HEMATOLOGY Platelet 46 133 - 450 07/06 LOW MH /2011 [facility] HEMATOLOGY WBC 5.9 3.7 - 10.4 07/06 Normal MH [facility] HEMATOLOGY RBC 3.94 4.70 - 07/06 LOW MH 6.10 /2011 [facility] HEMATOLOGY Elliptocyte Slight None Seen 07/06 ABN MH *ABN* /2011 [facility] (07/06/2011 05:45:00) HEMATOLOGY Tear Cell Slight None Seen 07/06 ABN MH *ABN* /2011 [facility] (07/06/2011 05:45:00) HEMATOLOGY Large Plt Slight None Seen 07/06 ABN MH *ABN* /2011 [facility] (07/06/2011 05:45:00) HEMATOLOGY Target Cell Slight None Seen 07/06 ABN MH *ABN* /2011 [facility] (07/06/2011 05:45:00) HEMATOLOGY Polychrom Slight None Seen 07/06 Normal (07/06/2011 05:45:00) /2011 [facility] HEMATOLOGY Metamyelocyt 1.0 0.0 - 1.0 07/06 Normal es /2011 [facility] HEMATOLOGY Myelocytes 1.0 <=0.0 07/06 HI /2011 [facility] HEMATOLOGY Eosinophils 5.0 0.0 - 4.0 07/06 HI /2011 [facility] HEMATOLOGY Atypical 4.0 <=0.0 07/06 [facility] Lymphs /2011 [facility] HEMATOLOGY Segs 48.0 45.0 - 07/06 Normal 75.0 /2011 [facility] HEMATOLOGY Lymphocytes 2.5 1.0 - 5.5 07/06 Normal # /2011 [facility] HEMATOLOGY Eosinophils 0.3 0.0 - 0.5 07/06 Normal # /2011 [facility] HEMATOLOGY Monocytes # 0.1 0.0 - 0.8 07/06 Normal [facility] HEMATOLOGY Bands 0.0 0.0 - 11.0 07/06 Normal /2011 [facility] HEMATOLOGY Lymphocytes 39.0 20.0 - 07/06 Normal 40.0 [facility] HEMATOLOGY Monocytes 2.0 2.0 - 12.0 07/06 Normal [facility] HEMATOLOGY Segs-Bands # 2.8 1.5 - 8.1 07/06 Normal [facility] CHEMISTRY BNP 125 <=100 07/06 [place] <sup>8</sup>I nterpretive [facility] Data: Elevated results are in line with increasing severity of congestive heart failure. Minor elevations between 100 and 300 may be seen with Myocardial Ischemia, Sodium retaining drugs, and compensated/t reated heart failure. CHEMISTRY CK MB 0.5 0.5 - 3.6 07/06 Normal [facility] CHEMISTRY Troponin-I 0.18 0.00 - 07/06 Normal 0.40 [facility] CHEMISTRY Total CK 79 12 - 191 07/06 Normal [facility] CHEMISTRY A/G Ratio 0.8 0.7 - 1.6 07/06 Normal [facility] CHEMISTRY Globulin 4.4 2.0 - 4.0 07/06 HI [facility] CHEMISTRY Bili Total 0.4 0.2 - 1.3 07/06 Normal [facility] CHEMISTRY AST 14 0 - 37 02/27 Normal [facility] CHEMISTRY AGAP 8.8 10.0 - 07/06 LOW MH 20.0 /2011 [facility] CHEMISTRY B/C Ratio 14 6 - 25 07/06 Normal [facility] CHEMISTRY CO2 33 24 - 32 07/06 HI [facility] CHEMISTRY Creatinine 1.4 0.5 - 1.4 07/06 Normal Lvl [facility] CHEMISTRY Sodium Lvl 139 135 - 145 07/06 Normal [facility] CHEMISTRY Potassium 3.8 3.5 - 5.1 07/06 Normal Lvl [facility] CHEMISTRY Chloride Lvl 101 95 - 109 07/06 Normal [facility] CHEMISTRY ALT 18 0 - 65 07/06 Normal [facility] CHEMISTRY Alk Phos 54 39 - 136 07/06 Normal [facility] CHEMISTRY Calcium Lvl 8.9 8.5 - 10.5 07/06 Normal [facility] CHEMISTRY Total 8.1 6.4 - 8.4 07/06 Normal Protein [facility] CHEMISTRY Albumin Lvl 3.7 3.5 - 5.0 07/06 Normal [facility] CHEMISTRY BUN 20 7 - 22 07/06 Normal [facility] CHEMISTRY Glucose Lvl 107 07/06 NA <sup>7</sup>I nterpretive [facility] Data: Reference Ranges : 0 - 7 days : 41 - 90 mg/dL 7 days - 150 yrs : 70 - 99 mg/dL (fasting), based on the clinical recommendatio ns of the [place] [employer]. CHEMISTRY CK MB Index 0.6 0.0 - 2.5 07/06 Normal [facility] HEMATOLOGY PTT 27.8 22.9 - 07/06 Normal <sup>11</sup> MH 35.8 /2011 Interpretive [facility] Data: Heparin Therapeutic Range: 57 - 92 Seconds HEMATOLOGY PT 17.7 12.0 - 07/06 HI MH 14.7 [facility] HEMATOLOGY INR 1.46 0.85 - 07/06 [place] <sup>10</sup> 1.17 Interpretive [facility] Data: RECOMMENDED RANGES FOR PROTIME INR: 2.0-3.0 for most medical and surgical thromboemboli c states. 2.5-3.5 for artificial heart valves and recurrent embolism. INR SHOULD BE USED ONLY FOR PATIENTS ON STABLE ANTICOAGULANT THERAPY. HEMATOLOGY RBC 4.11 4.70 - 07/06 LOW MH 6.10 /2011 [facility] HEMATOLOGY Platelet 49 133 - 450 07/06 LOW MH /2011 [facility] HEMATOLOGY MPV 9.1 7.4 - 10.4 07/06 Normal MH /2011 [facility] HEMATOLOGY RDW 14.1 11.5 - 07/06 Normal MH 14.5 /2011 [facility] HEMATOLOGY WBC 5.5 3.7 - 10.4 07/06 Normal MH /2011 [facility] HEMATOLOGY Hct 37.2 42.0 - 07/06 LOW MH 54.0 /2011 [facility] HEMATOLOGY MCV 90.5 80.0 - 07/06 Normal MH 94.0 /2011 [facility] HEMATOLOGY MCH 30.8 27.0 - 07/06 Normal MH 31.0 /2011 [facility] HEMATOLOGY MCHC 34.0 32.0 - 07/06 Normal MH 36.0 /2011 [facility] HEMATOLOGY Hgb 12.6 14.0 - 07/06 LOW MH 18.0 /2011 [facility] HEMATOLOGY Segs-Bands # 2.0 1.5 - 8.1 07/06 Normal /2011 [facility] HEMATOLOGY Monocytes # 0.4 0.0 - 0.8 07/06 Normal MH /2011 [facility] HEMATOLOGY Tear Cell Slight None Seen 07/06 ABN MH *ABN* /2011 [facility] (07/05/2011 21:56:00) HEMATOLOGY Eosinophils 0.1 0.0 - 0.5 07/06 Normal MH # /2011 [facility] HEMATOLOGY Segs 36.0 45.0 - 07/06 LOW MH 75.0 /2011 [facility] HEMATOLOGY Basophils # 0.1 0.0 - 0.2 07/06 Normal /2011 [facility] HEMATOLOGY Lymphocytes 3.0 1.0 - 5.5 07/06 Normal MH # /2011 [facility] HEMATOLOGY Lymphocytes 54.0 20.0 - 07/06 HI MH 40.0 /2011 [facility] HEMATOLOGY Bands 0.0 0.0 - 11.0 07/06 Normal MH /2011 [facility] HEMATOLOGY Monocytes 7.0 2.0 - 12.0 07/06 Normal MH /2011 [facility] HEMATOLOGY Eosinophils 2.0 0.0 - 4.0 07/06 Normal MH /2011 [facility] HEMATOLOGY Basophils 1.0 0.0 - 1.0 07/06 Normal /2011 [facility] HEMATOLOGY Atypical 0.0 <=0.0 07/06 Normal MH Lymphs /2011 [facility] HEMATOLOGY NRBC 2 07/06 NA MH /2011 [facility] HEMATOLOGY Plt Morph Normal 07/06 Normal (07/05/2011 21:56:00) /2011 [facility] BEDSIDE Comment1 Notify 05/05 NA GLUCOSE RN/ /2010 [facility] TESTING BEDSIDE Gluc POC 147 65 - 110 05/05 HI <sup>2</sup>I GLUCOSE [facility] /2010 nterpretive [facility] TESTING Data: Upper Reportable Limit: 200 mg/dL. BEDSIDE Gluc POC 114 65 - 110 05/05 [place] <sup>3</sup>I GLUCOSE [facility] /2010 nterpretive [facility] TESTING Data: Upper Reportable Limit: 200 mg/dL. BEDSIDE Comment1 Notify 05/05 NA GLUCOSE RN/ /2010 [facility] TESTING CHEMISTRY Magnesium 2.1 1.8 - 2.4 05/05 Normal Lvl [facility] CHEMISTRY AGAP 10.4 10.0 - 05/05 Normal 20.0 [facility] CHEMISTRY CO2 29 24 - 32 05/05 Normal [facility] CHEMISTRY Calcium Lvl 8.2 8.5 - 10.5 05/05 LOW [facility] CHEMISTRY Sodium Lvl 141 135 - 145 05/05 Normal [facility] CHEMISTRY Chloride Lvl 106 95 - 109 05/05 Normal [facility] CHEMISTRY Potassium 4.4 3.5 - 5.1 05/05 Normal [facility] CHEMISTRY Creatinine 1.2 0.5 - 1.4 05/05 Normal Lvl [facility] CHEMISTRY Glucose Lvl 86 05/05 NA <sup>5</sup>I nterpretive [facility] Data: Reference Ranges : 0 - 7 days : 41 - 90 mg/dL 7 days - 150 yrs : 70 - 99 mg/dL (fasting), based on the clinical recommendatio ns of the [place] [employer]. CHEMISTRY BUN 25 7 - 22 05/05 HI [facility] CHEMISTRY LDL 89 0 - 129 05/05 Normal [facility] CHEMISTRY HDL 42 >=35 05/05 Normal [facility] CHEMISTRY Chol 154 120 - 200 05/05 Normal [facility] CHEMISTRY Trig 117 0 - 200 05/05 Normal [facility] CHEMISTRY CHD Risk 3.67 4.00 - 05/05 LOW 7.30 /2010 [facility] CHEMISTRY Phosphorus 2.5 2.5 - 4.5 05/05 Normal [facility] HEMATOLOGY PTT 44.8 22.9 - 05/05 HI <sup>14</sup> MH 35.8 /2010 Interpretive [facility] Data: Heparin Therapeutic Range: 57 - 92 Seconds HEMATOLOGY PT 21.1 12.0 - 05/05 HI 14.7 /2010 [facility] HEMATOLOGY INR 1.84 0.85 - 05/05 HI <sup>11</sup> 1.17 Interpretive [facility] Data: RECOMMENDED RANGES FOR PROTIME INR: 2.0-3.0 for most medical and surgical thromboemboli c states. 2.5-3.5 for artificial heart valves and recurrent embolism. INR SHOULD BE USED ONLY FOR PATIENTS ON STABLE ANTICOAGULANT THERAPY. HEMATOLOGY MCH 31.5 27.0 - 05/05 HI MH 31.0 /2010 [facility] HEMATOLOGY MPV 9.7 7.4 - 10.4 05/05 Normal /2010 [facility] HEMATOLOGY MCHC 34.0 32.0 - 05/05 Normal 36.0 [facility] HEMATOLOGY Platelet 48 133 - 450 05/05 LOW MH /2010 [facility] HEMATOLOGY Hgb 12.5 14.0 - 05/05 LOW 18.0 [facility] HEMATOLOGY WBC 4.3 3.7 - 10.4 05/05 Normal [facility] HEMATOLOGY RBC 3.97 4.70 - 05/05 LOW 6.10 [facility] HEMATOLOGY Hct 36.7 42.0 - 05/05 LOW 54.0 [facility] HEMATOLOGY MCV 92.5 80.0 - 05/05 Normal 94.0 [facility] HEMATOLOGY RDW 15.1 11.5 - 05/05 HI 14.5 [facility] HEMATOLOGY Elliptocyte Slight None Seen 05/05 ABN *ABN* /2010 [facility] (05/05/2011 05:00:00) HEMATOLOGY Large Plt Slight None Seen 05/05 ABN *ABN* /2010 [facility] (05/05/2011 05:00:00) HEMATOLOGY Atypical 0.0 <=0.0 05/05 Normal Lymphs /2010 [facility] HEMATOLOGY Basophils 0.0 0.0 - 1.0 05/05 Normal /2010 [facility] HEMATOLOGY Lymphocytes 51.0 20.0 - 05/05 HI 40.0 [facility] HEMATOLOGY Bands 0.0 0.0 - 11.0 05/05 Normal MH /2010 [facility] HEMATOLOGY Segs 42.0 45.0 - 05/05 LOW 75.0 [facility] HEMATOLOGY Eosinophils 0.1 0.0 - 0.5 05/05 Normal MH # /2010 [facility] HEMATOLOGY Monocytes # 0.2 0.0 - 0.8 05/05 Normal [facility] HEMATOLOGY Lymphocytes 2.2 1.0 - 5.5 05/05 Normal # /2010 [facility] HEMATOLOGY Segs-Bands # 1.8 1.5 - 8.1 05/05 Normal /2010 [facility] HEMATOLOGY Eosinophils 2.0 0.0 - 4.0 05/05 Normal [facility] HEMATOLOGY Monocytes 5.0 2.0 - 12.0 05/05 Normal /2010 [facility] BEDSIDE Gluc POC 204 65 - 110 05/05 HI <sup>4</sup>I GLUCOSE [facility] /2010 nterpretive [facility] TESTING Data: Upper Reportable Limit: 200 mg/dL. BEDSIDE Comment1 Assess 05/05 NA GLUCOSE [facility] TESTING HEMATOLOGY Basophils # 0.0 0.0 - 0.2 05/04 Normal [facility] HEMATOLOGY Eosinophils 0.1 0.0 - 0.5 05/04 Normal [facility] HEMATOLOGY Monocytes 6.1 2.0 - 12.0 05/04 Normal [facility] HEMATOLOGY Segs 33.5 45.0 - 05/04 LOW MH 75.0 [facility] HEMATOLOGY Lymphocytes 56.9 20.0 - 05/04 HI 40.0 [facility] HEMATOLOGY Segs-Bands # 1.5 1.5 - 8.1 05/04 Normal [facility] HEMATOLOGY Lymphocytes 2.6 1.0 - 5.5 05/04 Normal [facility] HEMATOLOGY Monocytes # 0.3 0.0 - 0.8 05/04 Normal [facility] HEMATOLOGY Eosinophils 2.9 0.0 - 4.0 05/04 Normal [facility] HEMATOLOGY Basophils 0.6 0.0 - 1.0 05/04 Normal [facility] HEMATOLOGY PTT 43.4 22.9 - 05/04 HI <sup>15</sup> 35.8 Interpretive [facility] Data: Heparin Therapeutic Range: 57 - 92 Seconds HEMATOLOGY PT 18.2 12.0 - 05/04 HI MH 14.7 /2010 [facility] HEMATOLOGY INR 1.52 0.85 - 05/04 HI <sup>12</sup> 1.17 /2010 Interpretive [facility] Data: RECOMMENDED RANGES FOR PROTIME INR: 2.0-3.0 for most medical and surgical thromboemboli c states. 2.5-3.5 for artificial heart valves and recurrent embolism. INR SHOULD BE USED ONLY FOR PATIENTS ON STABLE ANTICOAGULANT THERAPY. HEMATOLOGY MPV 9.8 7.4 - 10.4 05/04 Normal MH /2010 [facility] HEMATOLOGY MCHC 34.2 32.0 - 05/04 Normal 36.0 /2010 [facility] HEMATOLOGY RDW 15.0 11.5 - 05/04 HI MH 14. [facility] HEMATOLOGY Platelet 51 133 - 450 05/04 LOW MH /2010 [facility] HEMATOLOGY RBC 4.06 4.70 - 05/04 LOW MH 6.10 [facility] HEMATOLOGY Hgb 12.6 14.0 - 05/04 LOW MH 18.0 /2010 [facility] HEMATOLOGY MCH 31.2 27.0 - 05/04 HI MH 31.0 [facility] HEMATOLOGY WBC 4.5 3.7 - 10.4 05/04 Normal MH /2010 [facility] HEMATOLOGY Hct 37.0 42.0 - 05/04 LOW 54.0 [facility] HEMATOLOGY MCV 91.1 80.0 - 05/04 Normal 94.0 [facility] HEMATOLOGY INR 1.41 0.85 - 05/03 HI <sup>13</sup> 1.17 /2010 Interpretive [facility] Data: RECOMMENDED RANGES FOR PROTIME INR: 2.0-3.0 for most medical and surgical thromboemboli c states. 2.5-3.5 for artificial heart valves and recurrent embolism. INR SHOULD BE USED ONLY FOR PATIENTS ON STABLE ANTICOAGULANT THERAPY. HEMATOLOGY PT 17.2 12.0 - 05/03 HI MH 14. [facility] HEMATOLOGY PTT 37.6 22.9 - 05/03 HI <sup>16</sup> 35.8 /2010 Interpretive [facility] Data: Heparin Therapeutic Range: 57 - 92 Seconds HEMATOLOGY MPV 10.0 7.4 - 10.4 05/03 Normal MH /2010 [facility] HEMATOLOGY Platelet 66 133 - 450 05/03 LOW MH /2010 [facility] HEMATOLOGY MCV 91.6 80.0 - 05/03 Normal 94.0 /2010 [facility] HEMATOLOGY MCH 31.3 27.0 - 05/03 HI MH 31.0 [facility] HEMATOLOGY MCHC 34.2 32.0 - 05/03 Normal MH 36.0 /2010 [facility] HEMATOLOGY RDW 15.4 11.5 - 05/03 HI 14. [facility] HEMATOLOGY Hct 38.7 42.0 - 05/03 LOW 54.0 [facility] HEMATOLOGY WBC 4.8 3.7 - 10.4 05/03 Normal MH /2011 [facility] HEMATOLOGY RBC 4.23 4.70 - 05/03 LOW MH 6. [facility] HEMATOLOGY Hgb 13.2 14.0 - 05/03 LOW MH 18.0 [facility] HEMATOLOGY Elliptocyte Slight None Seen 05/03 ABN MH *ABN* [facility] (05/03/2011 04:40:00) HEMATOLOGY Basophils 0.0 0.0 - 1.0 05/03 Normal [facility] HEMATOLOGY Large Plt Slight None Seen 05/03 ABN MH *ABN* /2010 [facility] (05/03/2011 04:40:00) HEMATOLOGY Atypical 2.0 <=0.0 05/03 HI MH Lymphs [facility] HEMATOLOGY Eosinophils 6.0 0.0 - 4.0 05/03 HI MH [facility] HEMATOLOGY Monocytes 4.0 2.0 - 12.0 05/03 Normal [facility] HEMATOLOGY Bands 1.0 0.0 - 11.0 05/03 Normal [facility] HEMATOLOGY Eosinophils 0.3 0.0 - 0.5 05/03 Normal MH # [facility] HEMATOLOGY Lymphocytes 54.0 20.0 - 05/03 HI MH 40.0 [facility] HEMATOLOGY Segs 33.0 45.0 - 05/03 LOW MH 75.0 [facility] HEMATOLOGY Monocytes # 0.2 0.0 - 0.8 05/03 Normal MH [facility] HEMATOLOGY Lymphocytes 2.7 1.0 - 5.5 05/03 Normal MH [facility] HEMATOLOGY Segs-Bands # 1.6 1.5 - 8.1 05/03 Normal [facility] HEMATOLOGY Monocytes # 0.2 0.0 - 0.8 05/03 Normal MH [facility] HEMATOLOGY Eosinophils 0.2 0.0 - 0.5 05/03 Normal MH # [facility] HEMATOLOGY Basophils # 0.0 0.0 - 0.2 05/03 Normal MH [facility] HEMATOLOGY Monocytes 5.1 2.0 - 12.0 05/03 Normal [facility] HEMATOLOGY Eosinophils 3.4 0.0 - 4.0 05/03 Normal MH [facility] HEMATOLOGY Basophils 0.4 0.0 - 1.0 05/03 Normal [facility] HEMATOLOGY Segs-Bands # 1.7 1.5 - 8.1 05/03 Normal [facility] HEMATOLOGY Lymphocytes 2.6 1.0 - 5.5 05/03 Normal MH # /2010 [facility] HEMATOLOGY Segs 36.4 45.0 - 05/03 LOW MH 75.0 [facility] [facility] HEMATOLOGY Lymphocytes 54.7 20.0 - 05/03 HI MH 40.0 [facility] HEMATOLOGY Large Plt Slight None Seen 05/02 ABN MH *ABN* /2010 [facility] (05/02/2011 04:15:00) HEMATOLOGY Target Cell Slight None Seen 05/02 ABN MH *ABN* /2010 [facility] (05/02/2011 04:15:00) HEMATOLOGY Basophils # 0.0 0.0 - 0.2 05/02 Normal MH /2010 [facility] HEMATOLOGY Polychrom Slight None Seen 05/02 Normal (05/02/2011 04:15:00) [facility] BEDSIDE Comment2 Assess 05/02 NA GLUCOSE Patient /2010 [facility] TESTING HEMATOLOGY Smudge Slight None Seen 05/01 Normal (05/01/2011 04:30:00) [facility] Elliptocyte Slight None Seen 05/01 ABN MH *ABN* /2010 [facility] (05/01/2011 04:30:00) HEMATOLOGY Polychrom Slight None Seen 05/01 Normal (05/01/2011 04:30:00) [facility] HEMATOLOGY Target Cell Slight None Seen 05/01 ABN MH *ABN* /2010 [facility] (05/01/2011 04:30:00) HEMATOLOGY Atypical 5.0 <=0.0 05/01 HI Lymphs [facility] HEMATOLOGY Bands 0.0 0.0 - 11.0 05/01 Normal MH /2010 [facility] BEDSIDE Comment2 Assess 05/01 NA GLUCOSE Patient /2010 [facility] TESTING IMMUNOLOGY 24 UPE Tot 5 04/30 NA Prot [facility] IMMUNOLOGY 24Hr UPE 125 04/30 NA MH /2010 [facility] IMMUNOLOGY 24Hr UPE Int Normal 04/30 NA urine [facility] protein electropho resis with minimal proteinuri a. No monoclonal bands are identified ; however, evaluation is limited by the small amount of protein and the resulting lack of discernibl e bands on the electropho retic gel. Interpret ation performed at [facility]. IMMUNOLOGY 24 UPE Tot 2500 04/30 NA Vol /2010 [facility] HEMATOLOGY RBC Morph Normal 04/30 Normal (04/30/2011 05:00:00) [facility] HEMATOLOGY Lup Interp Negative 04/30 NA for lupus [place] anticoagul ant by DRVVT and hexagonal phospholip id neutraliza tion. If there is strong clinical suspicion of lupus anticoagul ant, additional testing, to include anticardio lipin antibody assays, is recommende d. Interpreta tion performed at [facility]. HEMATOLOGY dRVVT 36.9 <=42.9 04/30 Normal MH [facility] HEMATOLOGY Hex Phos N Negative Negative 04/30 Normal (04/30/2011 05:00:00) [facility] IMMUNOLOGY JASPREET Ser A 04/30 NA Pattern monoclonal [place] band is noted in the gamma region of the IgG and lambda lanes. Faint diffusely immunoreac tive bands are also noted in the IgG, IgA, IgM, kappa, and lambda lanes. Interpreta tion performed at [facility]. IMMUNOLOGY JASPREET Ser Serum 04/30 NA Interp immunofixa /2010 [facility] tion electropho resis reveals a monoclonal protein of IgG lambda specificit y. Normal polyclonal immunoglob ulins are present in decreased amounts. Interpreta tion performed at [facility]. IMMUNOLOGY Tot Prot 7.0 6.4 - 8.4 04/30 Normal (SPE) [facility] IMMUNOLOGY SPE Interp Total 04/[address] [facility] protein /2010 [facility] and albumin are within reference range. A distinct monoclonal band comprising 1.31 g/dl of protein is present in the gamma globulin region. There is also an indication of restricted heterogene ity in immunoglob ulin synthesis. Serum and urine immunofixa tion studies are recommende d for further evaluation . Interpreta tion performed at [facility]. IMMUNOLOGY Gamma Glob 1.65 0.71 - 04/30 HI 1.57 /2010 [facility] IMMUNOLOGY Alpha 2 Glob 0.78 0.45 - 04/30 Normal 1.00 [facility] IMMUNOLOGY Beta Glob 0.69 0.50 - 04/30 Normal 1.15 /2010 [facility] IMMUNOLOGY Albumin % 51.1 55.8 - 04/30 LOW MH 66.1 /2010 [facility] IMMUNOLOGY Alpha 1 % 4.2 2.8 - 4.9 04/30 Normal MH /2010 [facility] IMMUNOLOGY Alpha 2 % 11.2 7.0 - 11.9 04/30 Normal MH [facility] IMMUNOLOGY Beta % 9.9 7.8 - 13.7 04/30 Normal MH [facility] IMMUNOLOGY Gamma % 23.6 11.1 - 04/30 HI MH 18.7 /2010 [facility] Albumin 3.58 3.57 - 04/30 Normal MH (SPE) 5.55 /2010 [facility] Alpha 1 Glob 0.29 0.18 - 04/30 Normal MH 0.41 /2010 [facility] Beta2-Glycop <9 < OR = 20 04/30 NA <sup>22</sup> rotein IgA /2010 Result [facility] Comment: Patients who are found to [...] [place] 2006: 4; 295. Test Performed at: [facility] [address] [place] [id number] Mario Bowen MD, PhD IMMUNOLOGY Beta2-Glycop <9 < OR = 20 04/30 NA <sup>20</sup> [facility] IgM /2010 Result [facility] Comment: Patients who are found to be anticardiolip in antibody positive may have negative studies for antibodies to Beta 2 GPI. Positive anticardiolip in antibody tests together with negative testing for antibodies to Beta 2 GPI may be seen in a variety of different clinical settings including convalescence from recent infections (viral or bacterial). Test Performed at: [facility] [address] [place] [phone] Mario Bowen MD, PhD IMMUNOLOGY Beta2-Glycop <9 < OR = 20 04/30 NA <sup>21</sup> [facility] IgG /2010 Result [facility] Comment: Patients who are found to be anticardiolip in antibody positive may have negative studies for antibodies to Beta 2 GPI. Positive anticardiolip in antibody tests together with negative testing for antibodies to Beta 2 GPI may be seen in a variety of different clinical settings including convalescence from recent infections (viral or bacterial). Test Performed at: [facility] [address] [place] [phone] Mario Bowen MD, PhD IMMUNOLOGY Cardiolipin 2 04/30 NA <sup>17</sup> IgA Interpretive [facility] Data: Reference Ranges for IgA: 0-11 APL Negative 12-20 APL Inconclusive 21-80 APL Low-Med Positive > 80 APL Strong Positive IMMUNOLOGY Cardiolipin 4.3 04/30 NA <sup>19</sup> IgM Interpretive [facility] Data: Reference Ranges for IgM: 0-12.4 MPL Negative 12.5-20 MPL Inconclusive 21-80 MPL Low-Med Positive > 80 MPL Strong Positive IMMUNOLOGY Cardiolipin 6 04/30 NA <sup>18</sup> [facility]: Reference Ranges for Ig-14 GPL Negative 15-20 GPL Inconclusive 21-80 GPL Low-Med Positive > 80 GPL Strong Positive BEDSIDE Comment2 Notify 04/[address] [facility] GLUCOSE RN/ [facility] TESTING BEDSIDE Comment3 Assess 04/[address] [facility] GLUCOSE [facility] TESTING CHEMISTRY Calcium Lvl 8.3 8.5 - 10.5 04/29 LOW [facility] CHEMISTRY Potassium 4.5 3.5 - 5.1 04/29 Normal [facility] CHEMISTRY Sodium Lvl 138 135 - 145 04/29 Normal [facility] CHEMISTRY CO2 31 24 - 32 04/29 Normal [facility] CHEMISTRY Chloride Lvl 100 95 - 109 04/29 Normal [facility] CHEMISTRY BUN 22 7 - 22 04/29 Normal [facility] CHEMISTRY Creatinine 1.4 0.5 - 1.4 04/29 Normal Lv [facility] CHEMISTRY Glucose Lvl 101 04/29 NA <sup>6</sup>I nterpretive [facility] Data: Reference Ranges : 0 - 7 days : 41 - 90 mg/dL 7 days - 150 yrs : 70 - 99 mg/dL (fasting), based on the clinical recommendatio ns of the [place] [employer]. CHEMISTRY AGAP 11.5 10.0 - 04/29 Normal . [facility] CHEMISTRY Hgb A1C 7.2 04/29 NA <sup>10</sup> Interpretive [facility] Data: HbA1C% eAG(mg/dL) Interpretatio n 6.0 [...] TSH 3.540 0.360 - 04/29 Normal 3.740 [facility] HEMATOLOGY Polychrom Slight None Seen 04/29 Normal (04/29/2011 05:20:00) [facility] BACTERIAL MRSA by PCR Negative 1 04/28 Normal <sup>1</sup>I M H - SEROLOGY (04/28/2011 10:58:00) nterpre tive [facility] Data: INTERPRETATIO N: Negative..... .No MRSA [...] 6.4 - 8.4 04/28 Normal MH Protein [facility] CHEMISTRY ALT 15 0 - 65 04/28 Normal MH [facility] CHEMISTRY Albumin Lvl 3.2 3.5 - 5.0 04/28 LOW [facility] CHEMISTRY Alk Phos 46 39 - 136 04/28 Normal [facility] CHEMISTRY Bili Direct 0.2 0.0 - 0.3 04/28 Normal [facility] CHEMISTRY AST 17 0 - 37 04/28 Normal MH [facility] CHEMISTRY Bili Total 0.8 0.2 - 1.3 04/28 Normal MH [facility] CHEMISTRY Globulin 3.5 2.0 - 4.0 04/28 Normal MH [facility] CHEMISTRY Bili 0.6 0.0 - 1.0 04/28 Normal [facility] CHEMISTRY A/G Ratio 0.9 0.7 - 1.6 04/28 Normal [facility] CHEMISTRY CO2 30 24 - 32 04/28 Normal [facility] CHEMISTRY Calcium Lvl 8.0 8.5 - 10.5 04/28 LOW [facility] CHEMISTRY Chloride Lvl 99 95 - 109 04/28 Normal [facility] CHEMISTRY Potassium 3.6 3.5 - 5.1 04/28 Normal MH Lvl [facility] CHEMISTRY BUN 26 7 - 22 04/28 HI MH [facility] CHEMISTRY Glucose Lvl 139 04/28 NA <sup>7</sup>I nterpretive [facility] Data: Reference Ranges : 0 - 7 days : 41 - 90 mg/dL 7 days - 150 yrs : 70 - 99 mg/dL (fasting), based on the clinical recommendatio ns of the [place] [employer]. CHEMISTRY Sodium Lvl 137 135 - 145 04/28 Normal MH /2011 [facility] CHEMISTRY Creatinine 1.4 0.5 - 1.4 04/28 Normal Lvl [facility] CHEMISTRY AGAP 11.6 10.0 - 04/28 Normal MH 20.0 [facility] HEMATOLOGY Pat Od Value 0.084 04/28 NA MH [facility] HEMATOLOGY Pos CO Value 0.376 04/28 NA [facility] HEMATOLOGY Heprn Negative Negative 04/28 Normal Ab(HASEEB) (04/28/2011 10:50:00) [facility] HEMATOLOGY Plt Morph Normal 04/28 Normal MH (04/28/2011 10:50:00) [facility] BLOOD BANK Platelet Product available 04/28 Normal RESULTS product (04/28/2011 04:52:00) [facility] BLOOD BANK Antibody Negative 04/28 Normal RESULTS Scrn (04/28/2011 04:52:00) So [facility] BLOOD BANK ABO/Rh AB POS 04/28 Unknown MH RESULTS [facility] CHEMISTRY Troponin-I 0.70 0.00 - 04/28 CRIT <sup>8</sup>R MH 0.40 esult [facility] Comment: Critical Result(s) called to [place] at 04/28/2011 3:51 by BVo. Read back OK. CHEMISTRY CK MB 4.9 0.5 - 3.6 04/28 HI [facility] CHEMISTRY Total CK 133 12 - 191 04/28 Normal [facility] CHEMISTRY BNP 349 <=100 04/28 HI <sup>9</sup>I nterpretive [facility] Data: Elevated results are in line with increasing severity of congestive heart failure. Minor elevations between 100 and 300 may be seen with Myocardial Ischemia, Sodium retaining drugs, and compensated/t reated heart failure. CHEMISTRY CK MB Index 3.7 0.0 - 2.5 04/28 HI [facility] CHEMISTRY HIPOLITO 24.0 8 - 52 [...] on the clinical recommendatio ns of the [place] [employer]. CHEMISTRY A/G Ratio 0.7 0.7 [...] on the clinical recommendatio ns of the [place] [employer]. CHEMISTRY Potassium 3.6 3.5 - [...] - 02/15 Normal MH [place] 40.0 /2010 [facility] HEMATOLOGY Segs 71.1 45.0 - 02/15 Normal MH [place] 75.0 /2010 [place] HEMATOLOGY WBC 10.0 3.7 - 10.4 02/15 Normal MH [place] /2010 [facility] HEMATOLOGY MCV 91.5 80.0 - 02/15 Normal MH [place] 94.0 /2010 [place] HEMATOLOGY Hct 38.9 42.0 - 02/15 LOW MH [place] 54.0 /2010 [place] HEMATOLOGY RBC 4.25 4.70 - 02/15 LOW [place] 6.10 [facility] HEMATOLOGY Hgb 12.9 14.0 - 02/15 LOW [place] 18.0 /2010 [facility] HEMATOLOGY MCHC 33.2 32.0 - 02/15 Normal [place] 36.0 /2010 [facility] HEMATOLOGY MCH 30.4 27.0 - 02/15 Normal MH [place] 31.0 /2010 [facility] HEMATOLOGY MPV 10.0 7.4 - 10.4 02/15 Normal [place] /2010 [facility] HEMATOLOGY RDW 14.9 11.5 - 02/15 HI MH [place] 14.5 /2010 [facility] HEMATOLOGY Platelet 104.0 133 - 450 02/15 LOW MH Sugar [facility] VIRAL - Influ B Negative 5 >Negative 02/15 Normal <sup>5</sup>I Blake gar SEROLOGY (02/15/2011 00:20:00) ?? nterpr etive [facility] Data: Due to the low sensitivity [...] 02/15 Normal [place] SEROLOGY (02/15/2011 00:20:00) ?? [facility] CHEMISTRY Total CK 37.0 12 - 191 02/15 Normal Sugar [facility] CHEMISTRY Troponin-I 0.15 0.00 - 02/15 [...] on the clinical recommendatio ns of the [place] [employer]. CHEMISTRY BNP 304.0 <<=100 02/14 [...] 02/14 Normal <sup>11</sup> [place] 1.17 Interpretive [facility] Data: RECOMMENDED RANGES FOR PROTIME INR: [...] Normal 02/14 Normal [place] (02/14/2011 18:50:00) ?? [facility] HEMATOLOGY RBC Morph Normal 02/14 Normal [place] (02/14/2011 18:50:00) ?? [facility] Pathology Reports No Data Provided for This Section Diagnostic Reports Report Value Date Source Bone Marrow Bio/Aspr VR Bone Marrow Bio/Aspr VR 03/28/2018 8 :12 AM TREE [facility] 03/28/2018 [facility] Ordering Physician: Navin Thrasher MD [...] marrow was aspirated and analyzed by a armorer technician to confirm appropriat e access followed [...] the procedure by a dedicate d nurse. MOTOR VEHICLE DISPATCHER: Dr. Burrell FLUOROSCOPY TIME: 0.5 mins AIR KERMA DOSE: 31 mGy IMPRESSION: Successful fluoroscopically guided bone marrow a nd bone biopsies. SL: [id number] Ext Lower Venous Doppler Patient Name: JAVIER BUNCH 03/26/2018 [facility] Bilat US : 1935. Age: 82 years. Gender: Male. MR: [id number]. Location: [facility]. Provider: Arnoldo Melo MD. EXAM: Ext [...] veins. Right popliteal fossa Hewitt's cyst. SL: [id number] Retroperitoneal Complete Clinical Indication: Chronic renal insufficiency. 04/10/2017 [facility] Comparison: CT performed on 09/20/2012 TECHNIQUE: Multiple [...] stone. 2. Otherwise unremarkable renal U/S SL: [id number] Brain wo contrast CT Clinical Indication: syncope , DLP: 767.06mGycm - syncope, DLP: 767.06mGycm. 81-year-old male with syncope. [facility] None TECHNIQUE: CT images were ob [...] mass, acute hemorrhage or subacute stroke. SL: [id number] Abdomen complete US Patient Name: JAVIER BUNCH 03/17/2017 [facility] : 1935; Age: 81 years y/o Male MR: [id number] Study: Abdomen complete US 03/17/2017 10:32 AM [...] wall thickening appreciated. Severe hepatic steatosis. SL: [id number] Carotid artery Doppler Study: Carotid artery Doppler bilat US [facility] bilat US Clinical Indication: Syncope [...] Complete Clinical Indication: aleksandra/ckd - aleksandra/ckd; 03/16/2017 [facility] Comparison: 03/11/2013. TECHNIQUE: Multiple longitudinal and tr [...] 1view DX Clinical history: Chest pain. 01/17/2016 [employer] : 1935. Technique: Portable AP chest x-ray. Comparison: 04/23/2015. Heart size: Top normal limits. No pulmon neda edema. Left transvenous pacemaker. Lungs: No acute consolidation. Pleura: No pleural effusion. Mediastinum and abbi: Unremarkable. Skeletal: Unremarkable. Impression: 1. No acute finding in the chest. Chest 1view DX ADDENDUM: 04/23/2015 [facility] The impression should read: Dual [...] 2 views DX CHEST, TWO VIEWS 04/21/2015 [facility] HISTORY: Chest pain. COMPARISON: 07/06/2014 FINDINGS: The lungs are clear. No pleural effusion. No pn eumothorax. Heart size normal. No acute osseous abnormality. SL: 14 Hip 2 views DX 02/02/2015 [facility] REASON FOR EXAM: Pain from [...] 2 views DX CLINICAL HISTORY: Coughing. 07/06/2014 [employer] : 1935. TECHNIQUE: PA and lateral views of the chest com pared to April 02, 2014. Heart size is normal. Perihi lar bronchovascular prominence appears chronic. No new consolidation or effusion. No pulmonary edema. IMPRESSION: 1. No acute changes in the chest. Chest 1view NAME: JAVIER BUNCH 04/02/2014 [facility] : 1935 SEX: M 12 Ordering [...] Date Comments Source Respitory Rate 20 12/01/2018 [facility] Systolic (mm Hg) 94 12/01/2018 [facility] t Diastolic (mm Hg) 58 12/01/2018 [facility] Temperature Oral (F) 98.5 F 12/01/2018 [facility] Heart Rate 86 12/01/2018 [facility] Systolic (mm Hg) 107 12/01/2018 [facility] t Diastolic (mm Hg) 66 12/01/2018 [facility] Heart Rate 76 12/01/2018 [facility] Respitory Rate 20 12/01/2018 [facility] Temperature Oral (F) 98.1 F 12/01/2018 [facility] Systolic (mm Hg) 112 12/01/2018 [place] [facility] Diastolic (mm Hg) 63 12/01/[address] [facility] [address] Respitory Rate 20 12/01/2018 [facility] Heart Rate 41 12/01/2018 [facility] Height 193.04 cm 12/01/2018 [facility] BMI Calculated 39.16 11/30/2018 [facility] Weight 145.909 11/30/2018 [facility] Height 193.04 cm 11/30/2018 [facility] Systolic (mm Hg) 129 03/29/2018 [facility] t Diastolic (mm Hg) 71 03/29/[address] [facility] [address] Respitory Rate 18 03/29/2018 [facility] Heart Rate 69 03/29/2018 [facility] Temperature Oral (F) 97.5 F 03/29/2018 [facility] Heart Rate 82 03/29/2018 [facility] Respitory Rate 18 03/29/2018 [facility] Systolic (mm Hg) 156 03/29/2018 [place] [facility] Diastolic (mm Hg) 85 03/29/[address] [facility] [address] Temperature Oral (F) 98.4 F 03/29/2018 [facility] Weight 138.095 03/29/2018 [facility] Systolic (mm Hg) 135 03/29/2018 [place] Diastolic (mm Hg) 76 03/29/[address] [facility] [address] Heart Rate 78 03/29/2018 [facility] Temperature Oral (F) 98.3 F 03/29/2018 [facility] Respitory Rate 20 03/29/2018 [facility] BMI Calculated 36.96 03/25/2018 [facility] Weight 137.727 03/25/2018 [facility] Height 193.04 cm 03/25/2018 [facility] Temperature Oral (F) 97.9 F 04/11/2017 [facility] Systolic (mm Hg) 93 04/11/2017 [place] [facility] Diastolic (mm Hg) 57 04/11/[address] Respitory Rate 18 04/11/2017 [place] Heart Rate 74 04/11/2017 [facility] Temperature Oral (F) 98.2 F 04/11/2017 [facility] Heart Rate 78 04/11/2017 [facility] Systolic (mm Hg) 103 04/11/2017 [place] [facility] Diastolic (mm Hg) 65 04/11/[address] Respitory Rate 18 04/11/2017 [facility] Systolic (mm Hg) 93 04/11/2017 [facility] Diastolic (mm Hg) 60 04/11/[address] [facility] [address] Heart Rate 74 04/11/2017 [place] Respitory Rate 18 04/11/2017 [facility] Temperature Oral (F) 98.2 F 04/11/2017 [facility] Height 193.04 cm 04/08/2017 [facility] Weight 145.909 04/08/2017 [facility] BMI Calculated 39.16 04/08/2017 [facility] Temperature Oral (F) 98.4 F [...] 03/23/[address] [address] Respitory Rate 18 03/23/2017 [facility] Temperature Oral (F) 98.4 F 03/23/2017 [facility] BMI Calculated 39.69 03/16/2017 [facility] Weight 147.909 03/16/2017 [facility] Height 193.04 cm 03/16/2017 [facility] Weight 129.545 03/16/2017 [facility] BMI Calculated 34.76 03/16/2017 [facility] Height 193.04 cm 03/16/2017 [facility] Temperature Oral (F) 97.9 F 03/11/2016 [facility] Systolic (mm Hg) 106 03/11/2016 [facility] Diastolic (mm Hg) 68 03/11/[address] Heart Rate 109 03/11/2016 [facility] Respitory Rate 18 03/11/2016 [facility] Systolic (mm Hg) 97 03/11/2016 [facility] Diastolic (mm Hg) 64 03/11/[address] Respitory Rate 18 03/11/2016 [facility] Temperature Oral (F) 98.1 F 03/11/2016 [facility] Heart Rate 108 03/11/2016 [place] Heart Rate 107 03/11/2016 [facility] Temperature Oral (F) 97.8 F 03/11/2016 [facility] Respitory Rate 18 03/11/2016 [facility] Systolic (mm Hg) 100 03/11/2016 [facility] Diastolic (mm Hg) 65 03/11/[address] BMI Calculated 35.62 03/09/2016 [facility] Weight 132.727 03/09/2016 [facility] Height 193.04 cm 03/09/2016 [place] Respitory Rate 18 01/18/2016 [facility] [place] Heart Rate 98 01/18/2016 [place] Temperature Oral (F) 98.7 F 01/18/2016 [place] Systolic (mm Hg) 117 01/18/2016 [facility] [place] Diastolic (mm Hg) 69 01/18/2016 [place] Temperature Oral (F) 98.2 F 01/18/2016 [place] Heart Rate 103 01/18/2016 [place] Respitory Rate 18 01/18/2016 [facility] [place] Systolic (mm Hg) 113 01/18/2016 [facility] [place] Diastolic (mm Hg) 64 01/18/2016 [place] Temperature Oral (F) 98.1 F 01/18/2016 [place] Heart Rate 100 01/18/2016 [place] Respitory Rate 18 01/18/2016 [place] Weight 136.364 01/18/2016 [place] BMI Calculated 36.59 01/18/2016 [place] Height 193.04 cm 01/18/2016 [place] Diastolic (mm Hg) 79 01/18/2016 [place] Systolic (mm Hg) 119 01/18/2016 [place] Weight 138.182 01/17/2016 [place] Heart Rate 72 05/28/2015 [place] Temperature Oral (F) 97.9 F 05/28/2015 [place] Respitory Rate 18 05/28/2015 [place] Systolic (mm Hg) 148 05/28/2015 [place] Diastolic (mm Hg) 77 05/28/2015 [place] Weight 130.5 05/28/2015 [place] Temperature Oral (F) 97.8 F 05/28/2015 [place] Respitory Rate 18 05/28/2015 [place] Heart Rate 76 05/28/2015 [place] Systolic (mm Hg) 167 05/28/2015 [place] Diastolic (mm Hg) 71 05/28/2015 [place] Systolic (mm Hg) 131 04/24/2015 [place] Diastolic (mm Hg) 69 04/24/[address] [address] Respitory Rate 18 04/24/2015 [place] Temperature Oral (F) 97.7 F 04/24/2015 [facility] Heart Rate 65 04/24/2015 [place] Systolic (mm Hg) 123 04/24/2015 [place] [facility] Diastolic (mm Hg) 74 04/24/[address] [facility] [address] Respitory Rate 18 04/24/2015 [facility] Temperature Oral (F) 97.2 F 04/24/2015 [facility] Heart Rate 64 04/24/2015 [facility] Systolic (mm Hg) 110 04/24/2015 [place] Diastolic (mm Hg) 66 04/24/[address] [facility] [address] Respitory Rate 18 04/24/2015 [facility] Heart Rate 60 04/24/2015 [facility] Temperature Oral (F) 97.7 F 04/24/2015 [facility] Weight 130.004 04/21/2015 [facility] Height 187.96 cm 04/21/2015 [facility] BMI Calculated 36.8 04/21/2015 [facility] Temperature Oral (F) 98 F 02/03/2015 [facility] Heart Rate 69 02/03/2015 [facility] Systolic (mm Hg) 167 02/03/2015 [facility] Diastolic (mm Hg) 74 02/03/[address] [facility] [address] Respitory Rate 18 02/03/2015 [facility] Height 172.72 cm 02/02/2015 [facility] Weight 131.364 02/02/2015 [facility] BMI Calculated 44.03 02/02/2015 [facility] Respitory Rate 18 02/02/2015 [facility] Temperature Oral (F) 98.2 F 02/02/2015 [facility] Heart Rate 82 02/02/2015 [facility] Systolic (mm Hg) 118 02/02/2015 [place] Diastolic (mm Hg) 68 02/02/[address] [facility] [address] Heart Rate 61 07/07/2014 [place] Respitory Rate 16 07/07/2014 [place] Temperature Oral (F) 98.3 F 07/07/2014 [place] Heart Rate 59 07/07/2014 [place] Respitory Rate 18 07/07/2014 [place] Systolic (mm Hg) 159 07/07/2014 [place] Diastolic (mm Hg) 60 07/07/2014 [place] Systolic (mm Hg) 160 07/07/2014 [place] Diastolic (mm Hg) 54 07/07/2014 [place] Respitory Rate 20 07/07/2014 [place] Heart Rate 57 07/07/2014 [place] Systolic (mm Hg) 151 07/07/2014 [place] Diastolic (mm Hg) 61 07/07/2014 [place] Temperature Oral (F) 98.1 F 07/07/2014 [place] Height 193.04 cm 07/07/2014 [place] BMI Calculated 36.72 07/07/2014 [place] Weight 136.818 07/07/2014 [place] Diastolic (mm Hg) 54 04/02/[address] [...] 04/02/2014 [facility] Height 193.04 cm 03/30/2014 [facility] BMI Calculated 31.71 03/30/2014 [place] Weight 118.182 03/30/2014 [facility] Temperature Oral (F) 98.2 F 03/30/2014 [facility] Heart Rate 58 03/30/2014 [facility] Rate 18 03/06/2014 [facility] Heart Rate 61 03/06/2014 [facility] Temperature Oral (F) 98.1 F [...] F 03/05/2014 [facility] Weight 127.1 02/27/2014 [facility] Weight 126.3 02/26/2014 [facility] BMI Calculated 33.89 02/26/2014 [facility] Height 193.04 cm 02/26/2014 [facility] Height 193.04 cm 02/25/2014 [facility] Weight 117.727 02/25/2014 [facility] BMI Calculated 31.59 02/25/2014 [facility] Temperature Oral (F) 99 F 01/28/2014 [facility] Heart Rate 67 01/28/2014 [facility] Rate 18 01/28/2014 [facility] Diastolic (mm Hg) 67 01/28/[address] Systolic (mm Hg) 132 01/28/2014 [facility] Temperature Oral (F) 98.8 F 01/28/2014 [facility] Heart Rate 60 01/28/2014 [facility] Respitory Rate 18 01/28/2014 [facility] Systolic (mm Hg) 139 01/28/2014 [facility] Diastolic (mm Hg) 71 01/28/[address] Weight 119.116 01/28/2014 [facility] Systolic (mm Hg) 120 01/28/2014 [facility] Diastolic (mm Hg) 54 01/28/[address] Temperature Oral (F) 98.5 F 01/28/2014 [facility] Heart Rate 62 01/28/2014 [facility] Respitory Rate 20 01/28/2014 [facility] BMI Calculated 32.15 01/26/2014 [facility] Height 193.04 cm 01/26/2014 [facility] Weight 119.801 01/26/2014 [facility] Height 193.04 cm 07/20/2012 [place] Weight 122.273 07/20/2012 [place] Systolic (mm Hg) 136 02/28/2012 [facility] Rate 116 02/28/2012 [facility] Rate 18 02/28/2012 [facility] Diastolic (mm Hg) 91 02/28/[address] Temperature Oral (F) 98.7 F 02/28/2012 [facility] Diastolic (mm Hg) 69 02/27/[address] [facility] Rate 20 02/27/2012 [facility] Systolic (mm Hg) 123 02/27/2012 [facility] Temperature Oral (F) 98.3 F 02/27/2012 [facility] Heart Rate 57 02/27/2012 [facility] Diastolic (mm Hg) 61 02/27/2012 [facility] Systolic (mm Hg) 124 02/27/2012 [facility] t Respitory Rate 20 02/27/2012 [facility] Temperature Oral (F) 97.5 F 02/27/2012 [facility] Heart Rate 57 02/27/2012 [facility] Height 193.04 cm 02/26/2012 [facility] Weight 120.000 02/26/2012 [facility] Weight 119.091 02/26/2012 [facility] Height 193.04 cm 02/26/2012 [facility] Respitory Rate 18 12/08/2011 [facility] howie Center Diastolic (mm Hg) 49 12/08/2011 [facility] edical Center Systolic (mm Hg) 119 12/08/2011 [facility] dical Center Temperature Oral (F) 98.9 F 12/08/2011 [facility] Heart Rate 57 12/08/2011 [facility] Temperature Oral (F) 99.2 F 12/08/2011 [facility] Heart Rate 57 12/08/2011 [facility] Systolic (mm Hg) 131 12/08/2011 [facility] dical Center Respitory Rate 18 12/08/2011 [facility] howie Center Diastolic (mm Hg) 74 12/08/2011 [facility] ed[facility] Center Diastolic (mm Hg) 58 12/08/2011 [facility] Center Systolic (mm Hg) 119 12/08/2011 [facility] dical Center Respitory Rate 20 12/08/2011 [facility] howie Center Heart Rate 54 12/08/2011 [facility] Temperature Oral (F) 97.9 F 12/08/2011 [facility] Height 193.04 cm 12/03/2011 [facility] Weight 119.091 12/03/2011 [facility] Weight 119.091 12/01/2011 [facility] Height 193.04 cm 12/01/2011 [facility] Weight 119.091 12/01/2011 [facility] Height 193.04 cm 12/01/2011 [facility] Respitory Rate 18 08/28/2011 [place] Heart Rate 49 08/28/2011 [place] Diastolic (mm Hg) 65 08/28/2011 [place] Systolic (mm Hg) 138 08/28/[place] Temperature Oral (F) 97.7 F 08/28/2011 [place] Diastolic (mm Hg) 55 08/28/2011 [facility] [place] Systolic (mm Hg) 117 08/28/2011 [facility] [place] Heart Rate 54 08/28/2011 [place] Respitory Rate 18 08/28/2011 [place] Temperature Oral (F) 97.9 F 08/28/2011 [place] Diastolic (mm Hg) 61 08/27/2011 [facility] [place] Systolic (mm Hg) 130 08/27/2011 [facility] [place] Resp[place] Rate 18 08/27/2011 [place] Heart Rate 47 08/27/2011 [place] Temperature Oral (F) 98.1 F 08/27/2011 [place] Weight 129.091 08/26/2011 [place] Height 193.04 cm 08/26/2011 [place] Respitory Rate 18 07/07/2011 [facility] Diastolic (mm Hg) 55 07/07/[address] [facility] [address] Heart Rate 55 07/07/2011 [facility] Systolic (mm Hg) 120 07/07/[facility] Temperature Oral (F) 98.4 F 07/07/2011 [facility] Diastolic (mm Hg) 55 07/07/[address] [facility] [address] Systolic (mm Hg) 120 07/07/2011 [facility] Rate 18 07/07/2011 [facility] Temperature Oral (F) 97.3 F 07/07/2011 [facility] Heart Rate 49 07/07/2011 [facility] Temperature Oral (F) 97.8 F 07/07/2011 [facility] Weight 129.900 07/06/2011 [facility] Weight 130.800 07/06/2011 [facility] Height 193.04 cm 07/06/2011 [facility] Systolic (mm Hg) 124 05/05/2011 [facility] [place] Rate 20 05/05/2011 [facility] Diastolic (mm Hg) 52 05/05/[address] [facility] [address] Heart Rate 57 05/05/2011 [facility] [...] Rate 52 05/05/2011 [facility] Weight 126.477 05/02/2011 [facility] Weight 125.100 04/28/2011 [facility] Height 193.04 cm 04/28/2011 [facility] Rate 16.0 02/17/2011 [place] Heart Rate 55.0 02/17/2011 [place] Temperature Oral (F) 97.8 F 02/17/2011 [place] Systolic (mm Hg) 151.0 02/17/2011 [place] Diastolic (mm Hg) 75.0 02/17/2011 [place] Diastolic (mm Hg) 80.0 02/17/2011 [place] Temperature Oral (F) 97.7 F 02/17/2011 [place] Systolic (mm Hg) 157.0 02/17/2011 [place] Resp[place] Rate 16.0 02/17/2011 [place] Heart Rate 60.0 02/17/2011 [place] Diastolic (mm Hg) 72.0 02/17/2011 [place] Resp[place] Rate 16.0 02/17/2011 [place] Systolic (mm Hg) 123.0 02/17/2011 [place] Temperature Oral (F) 98.5 F 02/17/2011 [place] Heart Rate 60.0 02/17/2011 [place] Weight 133.778 02/15/2011 [place] Height 193.04 cm 02/15/2011 [place] Weight 134.091 02/14/2011 [place] Height 193.04 cm 02/14/2011 [place] Encounters Location Location Encounter Encounter Reason Attending ADM [place] Stat Source Details Type Number For Provider Date Date Visit Inpatient [id number] TONEY BRASHER 02/14 02/17 Disch arg [place] In[place] [id number] AKOSUA 04/28 05/05 Dischar g [facility] 3 ODOM /[address] [facility] OU [id number] CHEST MONALISA GIL 07/06 07/07 Active [facility] 5 PAIN, /2011 [facility] [address] YTOPENIA MH Outpatient [id number] BIJAL ARNALDO 08/14 08/14 Active [facility] [place] 4 MELO [place] Inpatient [id number] GI BLEED AKOSUA 08/25 08/27 Activ e [place] 9 ODOM [place] [facility] Inpatient [id number] LUMBAR MARIA R LOVY 11/30 12/07 Ac t[facility] 6 SPINAL [facility] OU [id number] ACUTE BHAGWAT 02/24 02/26 Active [facility] 2 [place], CATALAN /[address] CARLOS [id number] ARNALDO 07/21 07/21 Discharg [facility] 8 ed [facility] Inpatient [id number] Giao Cox 01/26 01/28 Noel [facility] Inpatient [id number] Giao Cox 02/25 03/06 [place] [facility] OBS Day [id number] Terry 04/02 04/02 [place] [facility] 2 [facility] [place] [id number] Abdon Forbes 07/07 07/07 [place] Emergency [place] [facility] [place] [id number] Pop Mercado 02/02 02/03 [place] [facility] Inpatient [id number] Mike Odom 04/21 04/24 [place] [facility] EC [id number] Elizabeth Catalan 05/28 05/28 [place] Emergency [place] [facility] Observation [id number] Alverto 01/16 01/17 Noel 7 Alexus [place] [facility] Observation [id number] Kavita 03/09 03/11 No[facility] 5 Melo [facility] Outpatient [id number] ARNALDO 08/18 Active M emoria 0 [facility] Inpatient [id number] Kiritkumar 03/16 03/24 Noel 8 [facility] Inpatient [id number] Kiritkumar 04/10 04/11 [place] 4 Melo [facility] Inpatient [id number] Kiritkumar 03/25 03/29 [place] 0 [facility] Outpt Diag [id number] Arnaldo 04/19 04/19 [facility] [place] [facility] Inpatient [id number] Cecy 11/30 12/01 Noel 4 Maryann [facility] CARLOS [id number] BLOOD IN TIARA Cancel [facility] 1 STOOL AVA [place] CARLOS [id number] TEAR [facility] MEDIAL AVA [place] MENISC[place] [facility] Preadmit [id number] LUMBAR AMIR NAI Canc el Medical 6 STENOSIS [facility] , LUMBAR Medical RADICULO Center PAUL OD [id number] [phone] - ARNALDO Cancel OP ID 3 "[facility]UM[facility] [place]" Procedures Procedure Code Date Perfomer Comments Source Fluoroscopic [id number] OPID angiography of [place] coronary artery and [facility] insertion of stent [facility] [place] Fusion of lumbar 19851040 OPID spine [place],[facility] [place] IVC - Insertion of [id number] OPI D inferior vena caval [place] filter [facility] [place] Pacemaker [id number] inserted in OPID care<sup>1</sup> Apr 23, 2015 [place],[facility] [place] Percutaneous [id number] OPID transluminal [place] balloon angioplasty [facility] of aorta with stent [facility] placement for [place]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 Monitor patient on telemetry. Consult Dr. Melo, patient's foster care worker. Patientappearscomfortableduring exam. Will monitorvital signs closely. I nsulin forglucose control. Discussed wit h patient plan of care and currently agrees. 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 Patient withhistory of thrombocytopenia. Will monitor for stability. on Eliquis inpatient Extracted from:Title: Electrophysiology 03/29/2018 [facility] Author: Laquita Huynh NP [employer]ANSFORMER [employer]SEMBLY SUPERVISOR Date: 03/29/18 Progress Daily [facility] Completed: Mar, 08:47 by Laquita Huynh NP TRANSFORMER [employer]SEMBLY SUPERVISOR RM: 412 - 1P, SW E4A JAVIER [...] 2333 Tot Prot (UPE) 8 03/27 1616 [place] Free Light Chain 13.69 Lambda Free Light Toe 130.44 H [place]/Lambda Free Ligh 0.10 L Albumin % 46.4 [...] this consultation Extracted from:Title: Neurology Consultation 04/11/2017 [facility] Author: Mila Adams NP Date: [...] addtional episodes yesterday. Was subsequently brought to [facility]; patient reports they "checked blood work there," [...] AF - Atrial fibrillation / SNOMED CT 0187144662 / Confirmed Asbestosis / SNOMED CT [id number] / Confirmed Atrial fibrillation / SNOMED CT 88439312 / Confirmed Cardiac catheterization / SNOMED CT 83054963 / Confirmed CHF - Congestive heart failure / SNOMED CT 049227669 / Confi rmed Dizziness / SNOMED CT 1314096633 / Confirmed DVT - Deep vein thrombosis of lower limb / SNOMED CT 9237875 014 / Confirmed Gout / SNOMED CT [id number] / Conf irmed HTN - Hypertension / SNOMED CT 8639007646 / Confirmed [place] (myocardial infarction) / SNOMED CT 3 [id number] / Confirmed Monoclonal gammopathy / SNOMED CT CE0E78 [id number] / Confirmed low platelets Morbid obesity / SNOMED CT 643394997 / Confirmed Pain / SNOMED CT 00879558 / Confirmed Sleep apnea / SNOMED CT 198911887 / Confirmed, Active Problems (14) AF - Atrial fibrillation Asbestosis Atrial fibrillation Cardiac catheterization CHF - Congestive heart failure Dizziness DVT - Deep vein thrombosis of lower limb Gout HTN - Hypertension [place] (myocardial infarction) Monoclonal gammopathy Morbid obesity Pain Sleep apnea Histories Past Medical History: Active CHF - Congestive heart failure (374020789) HTN - Hypertension (1950932719) DVT - Deep vein thrombosis of lower limb (3001803153) Sleep apnea (788213798) Atrial fibrillation (42113756) Asbestosis ([id number]) Gout ([id number]) IL (myocardial infarction) ([id number]) Monoclonal gammopathy ([id number]) Comments: 02/26/2014 CDT 04:18 CDT - Ivonne Gray RN low platelets Resolved Diabetes mellitus (928030210): Resolved. Comments: 02/26/2014 CDT 02:17 Ivonne Powell RN border line 03/30/2014 TREE TRIMMER 11:40 TREE TRIMMER - Maame Marc RN PATIENT STATES HE IS NOT A DIABETIC 01/17/2016 CDT 19:50 CDT - Ramonita Anthony RN pt states he is not a diabetic CVA - Cerebrovascular accident (561740571): Resolved. Pneumonia ([id number]): Resolved. Family History: Heart disease Sister High blood pressure Mother Heart failure Brother Type 2 diabetes mellitus Mother Sister Pacemaker care Brother Procedure history: Fusion of lumbar spine (928198863). Procedure on back (304465697). Comments: 07/20/2012 15:54 - Natalia Yu RN states "back surgery" IVC - Insertion of inferior vena caval filter (6755005202). Percutaneous transluminal balloon angiop lasty of aorta with stent placement for coarctation of aorta (0095798614). Fluoroscopic angiography of coronary art chrissie and insertion of stent (1086485493). Pacemaker care (2927310064). Comments: 01/17/2016 19:52 - Ramonita Anthony RN [...] questions. Extracted from:Title: Progress Note * 01/28/2014 [facility] Author: Monalisa Farmer MD Date: 01/28/14 Patient: JAVIER BUNCH Age: 78 years Sex: Male : 1935 Associated Diagnoses: None Author: Monalisa Farmer MD Subjective no chest pain, palpitations, or shortness of breath Health Status Problem list: All Problems AF - Atrial fibrillation / SNOMED CT 3278651017 / Confirmed Atrial fibrillation / SNOMED CT 06811811 / Confirmed Cardiac catheterization / SNOMED CT 64724225 / Confirmed Diabetes mellitus / SNOMED CT 267278752 / Confirmed Dizziness / SNOMED CT 7400886685 / Confirmed Fusion / SNOMED CT 00516511 / Confirmed HTN - Hypertension / SNOMED CT 2226250057 / Confirmed Pain / SNOMED CT 79396741 / Confirmed Sleep apnea / SNOMED CT 468752452 / Confirmed Inactive: Chest pain / SNOMED CT 28066880 Inactive: Cough / SNOMED CT 19074086 Inactive: Nausea / SNOMED CT 5981937970 Resolved: CHF - Congestive heart failure / SNOMED CT 5882390 14 Resolved: DVT - Deep vein thrombosis of lower limb / SNOMED CT 3593518995 Objective Meds Scheduled Meds (7):AMIODarone (Cordarone ), atorvastatin (Lipitor), carvedilol (Coreg), dabigatran (Pradaxa), gabapentin (Neurontin 400 mg oral capsule), nitroglycerin (nitroglycerin 2% ointment), pantoprazole (Protonix) Unscheduled Meds (1):cefazolin PRN Meds (10):ALPRAZolam (ALPRAZOLam), S odium Chloride 0.9% IV, acetaminophen- hydrocodone ([place] 5/325 oral tablet), acetaminophen (Tylenol), docusate (Colace [...]
--- OUTSIDE RECORDS SUMMARY | 2020-06-18 22:36 | XMS REPORT | Continuity of Care Document ---
:1935 Author Organization [facility] t Address [address] [place] [address] Care Team Providers Name Role Phone Jose [...] Y FAILURE, 11-29 04:35:00 l CHF 00:00: Noel RESPIRATOR 00 Y FAILURE, CHF Active 11/29/2018 [facility] ACUTE ON Diagnosis Active 2019-01-17 M emoria CHRONIC 11-29 09:46:00 l CHF ACUTE ON 00:00: Pankaj n CHRONIC 00 CHF Active 11/29/2018 [facility] J44.9 - Diagnosis Active 2017-052018-05-20 Ks moria CHRONIC 06-14 15:41:00 l OBSTRUCTIV J44.9 - 00:01: Her [place] E CHRONIC 00 PULMONARY OBSTRUCTIV R0 E PULMONARY R0 Active 8 [facility] [place] ATRIAL Diagnosis Active 2017-052018-04-19 Mem oria FIBRILLATI 16 16:22:00 l ON, CAD ATRIAL 00:00: [place] FIBRILLATI 00 ON, CAD Active 03/25/2018 [facility] Acute deep Acute deep Disease Active 2016-05 [place] vein vein 205 Method[facility] thrombosis thrombosis 00:00: st (DVT) of (DVT) of 00 both lower both lower extremitie extremitie s s ALTERED Diagnosis Active 2016-052017-04-20 Me douglass MENTAL 06-08 21:57:00 l STATUS ALTERED 00:00: Noel MENTAL 00 STATUS Active 04/08/2017 [facility] SENT BY Diagnosis Active 2016-052017-03-16 Me evonne DAMON 05-16 15:25:00 l SENT BY 00:00: Noel DAMON 00 Active 03/16/2017 [facility] ACUTE DEEP Diagnosis Active 2016-052017-03-22 Memoria VEIN 05-16 08:39:00 l THROMBOSIS ACUTE 00:00: Jessica nn OF LEFT DEEP VEIN 00 LOWER THROMBOSIS OF LEFT LOWER Active 03/16/2017 [facility] CHEST PAIN Diagnosis Active 2015-052016-03-17 Memoria AFIB 0- 22:03:00 l CHEST 00:00: [place] PAIN AFIB 00 Active 03/09/2016 [facility] CHEST Diagnosis Active 2016-01-20 Mem oria TIGHTNESS 01-16 15:11:00 l CHEST 00:00: [place] TIGHTNESS 00 Active 01/17/2016 [place] UNABLE TO Diagnosis Active 2015-05-28 Memoria URINATE 05-28 15:38:00 l UNABLE 00:00: Noel TO URINATE 00 Active 05/28/2015 [place] CHEST PAIN Diagnosis Active 2014-052015-05-01 Memoria 06-21 21:54:00 l CHEST 00:00: Noel PAIN 00 Active 04/20/2015 [facility], [place] FLANK PAIN Diagnosis Active 2015-02-02 Memoria 02-02 17:03:00 l FLANK 00:00: Noel PAIN 00 Active 02/02/2015 [facility] 722.93 - Diagnosis Active 2014-11-21 M emoria DISC DIS 09-20 16:48:00 l NEC/NO 722.93 - 00:01: Pankaj n 724.02 - DISC DIS 00 "SPIN NEC/NO 724.02 - "SPIN Active 09/20/2014 [facility] SPITTING Diagnosis Active 2015-10-29 M emoria UP BLOOD, 07-06 10:05:00 l COUGHING SPITTING 12:00: Herm pinky UP MUCUS UP BLOOD, 00 COUGHING UP MUCUS Active 07/06/2014 [place] 785.6 - Diagnosis Active 2013-052014-08-06 Me moria ENLARGEMEN - 10:58:00 l T LYM 785.6 - 00:01: Noel ENLARGEMEN 00 T LYM Active 03/30/2014 [facility] MEDISTINAL Diagnosis Active 2013-052014-04-02 Memoria LYMPADENOP 05-23 06:14:00 l ATHY 00:00: Noel MEDISTINAL 00 LYMPADENOP ATHY Active 03/23/2014 [facility] HEMOPTYSIS Diagnosis Active 2013-052014-02-26 Memoria 0 00:32:00 l 00:00: [place] HEMOPTYSIS 00 Active 02/25/2014 [facility] ACS, CHEST Diagnosis Active 2013-052014-02-27 Memoria PAIN 0-19 07:54:00 l ACS, 00:00: Noel CHEST PAIN 00 Active 02/25/2014 [facility] MULTIFOCAL Diagnosis Active 2013-052014-03-13 Memoria PNEUMONIA, 0-19 17:32:00 l HEMOPTYSIS 00:00: Pankaj n , ACS, C MULTIFOCAL 00 PNEUMONIA, HEMOPTYSIS , ACS, C Active 02/25/2014 [facility] A-FIB, Diagnosis Active 2014-02-02 Mem oria TACHYCARDI 9- 22:29:00 l A A-FIB, 21:00: Noel TACHYCARDI 00 A Active 01/25/2014 [facility] MEDIASTINA Diagnosis Active 2012-07-21 Memoria L 3-07 11:17:00 l LYMPHADENO 00:00: Pankaj pena PAUL MEDIASTINA 00 L LYMPHADENO PAUL Active 07/14/2012 [place] 486 - Diagnosis Active 2012-07-14 Mem oria "PNEUMONIA 1-22 15:30:00 l , ORGA" 486 - 00:01: Noel "PNEUMONIA 00 , ORGA" Active 05/31/2012 [facility] [place] ACUTE DE, Diagnosis Active 2011-052012-03-07 Memoria NSTEMI 0-18 08:55:00 l ACUTE 00:00: Noel DE, NSTEMI 00 Active 02/25/2012 [facility] LUMBAR Diagnosis Active 2011-12-14 Mem oria SPINAL 7- 21:47:00 l STENOSIS LUMBAR 00:00: Pankaj pena SPINAL 00 STENOSIS Active 12/01/2011 [facility] LUMBAR Diagnosis Active 2012-02-05 Mem oria STENOSIS, - 15:16:00 l LUMBAR LUMBAR 00:00: Noel RADICULOPA STENOSIS, 00 THY LUMBAR RADICULOPA THY Active 09/08/2011 [facility] GI BLEED Diagnosis Active 2011-09-02 M emoria - 22:00:00 l GI BLEED 15:00: Pankaj n 00 Active 08/26/2011 [place] CHEST Diagnosis Active 2011-07-07 Mem oria PAIN, 2- 12:57:00 l THROMBOCYT CHEST 08:00: Jessica nn OPENIA PAIN, 00 THROMBOCYT OPENIA Active 07/05/2011 [facility] BIJAL Diagnosis Active 2011-08-22 Mem oria - 15:27:00 l BIJAL 00:00: Noel 00 Active 05/18/2011 [place] Cardiac Problem Active 2010-052018-12-03 Kaz david catheteriz 2- 22:16:39 l ation Cardiac 00:00: [place] (procedure catheteriz 00 ) ation (procedure ) Active 04/28/2011 Problem 12/03/2018 [facility] [place],[facility] [place] Cardiac Problem Active 2010-052012-07-23 Kaz david catheteriz 2- 09:02:15 l ation Cardiac 00:00: Noel catheteriz 00 ation Active 04/28/2011 Problem 07/23/2012 [facility], [facility] [place],[facility] [place] ATRIAL Diagnosis Active 2010-052011-04-30 Mem oria FIB, 2- 15:36:00 l UNSTABLE ATRIAL 15:47: Pankaj pena ANGINA FIB, 00 UNSTABLE ANGINA Active 04/27/2011 [place] TEAR Diagnosis Active 2010-052011-09-30 Mem oria MEDIAL 05-16 17:50:00 l MENISCUS TEAR 00:00: Noel MEDIAL 00 MENISCUS Active 03/16/2011 [place] BLOOD IN Diagnosis Active 2010-052011-03-27 M emoria STOOL 0-06 15:38:00 l BLOOD IN 00:00: Pankaj n STOOL 00 Active 02/12/2011 [place] Atrial Problem Active 2018-12-03 Memor ia fibrillati 22:16:39 l on Atrial [place] (disorder) fibrillati on (disorder) Active Problem 12/03/2018 [facility] [place] [place] Asbestosis Problem Active 2018-12-03 M emoria (disorder) 22:16:39 l [place] Asbestosis (disorder) Active Problem 12/03/2018 [facility] [place] [place] Congestive Problem Active 2018-12-03 M emoria heart 22:16:39 l failure [place] (disorder) Congestive heart failure (disorder) Active Problem 12/03/2018 [facility] [place] [place] Dizziness Problem Active 2018-12-03 Me moria (finding) 22:16:39 l Noel Dizziness (finding) Active Problem 12/03/2018 [facility] [place],[facility], [place] Deep Problem Active 2018-12-03 Memor ia venous 22:16:39 l thrombosis Deep Pankaj n of lower venous extremity thrombosis (disorder) of lower extremity (disorder) Active Problem 12/03/2018 [facility] [place],[facility], [place] Gout Problem Active 2018-12-03 Memor ia (disorder) 22:16:39 l Gout [place] (disorder) Active Problem 12/03/2018 [facility] [place],[facility], [place] Hypertensi Problem Active 2018-12-03 M emoria ve 22:16:39 l disorder, Noel systemic Hypertensi arterial ve (disorder) disorder, systemic arterial (disorder) Active Problem 12/03/2018 [facility] [place],[facility], [place] Myocardial Problem Active 2018-12-03 M emoria infarction 22:16:39 l (disorder) Pankaj n Myocardial infarction (disorder) Active Problem 12/03/2018 [facility] [place], [place] Monoclonal Problem Active 2018-12-03 M emoria gammopathy 22:16:39 l (disorder) Pankaj n Monoclonal gammopathy (disorder) Active Problem 12/03/2018 low platelets [facility] [place],[facility], [place] Morbid Problem Active 2018-12-03 Memor ia obesity 22:16:39 l (disorder) Morbid Herm pinky obesity (disorder) Active Problem 12/03/2018 [facility] [place],[facility] Pain Problem Active 2018-12-03 Memor ia (finding) 22:16:39 l Pain [place] (finding) Active Problem 12/03/2018 [facility] [place],[facility], [place] Sleep Problem Active 2018-12-03 Memor ia apnea 22:16:39 l (finding) Sleep Pankaj n apnea (finding) Active Problem 12/03/2018 [facility] [place],[facility], [place] Dizziness Problem Active 2011-08-30 Me moria 09:29:29 l Noel Dizziness Active Problem 08/30/2011 [facility], [place] AF - Problem Active 2012-07-23 Memor ia Atrial 09:02:15 l fibrillati AF - Pankaj n on Atrial fibrillati on Active Problem 3 [facility], [facility] [place],[facility], [place] Atrial Problem Active 2012-07-23 Memor ia fibrillati 09:02:15 l on Atrial Noel fibrillati on Active Problem 3 [place] Diabetes Problem Active 2012-07-23 Mem oria mellitus 09:02:15 l Diabetes Pankaj n mellitus Active Problem 07/23/2012 [place] Dizziness Problem Active 2012-07-23 Me moria 09:02:15 l [place] Dizziness Active Problem 07/23/2012 [facility], [facility] [place],[facility], [place] Fusion Problem Active 2012-07-23 Memor ia 09:02:15 l Fusion Noel Active Problem 07/23/2012 [facility], [facility] [place],[facility], [place] HTN - Problem Active 2012-07-23 Memor ia Hypertensi 09:02:15 l on HTN - [place] Hypertensi on Active Problem 3 [facility] [place], [place] Pain Problem Active 2012-07-23 Memor ia 09:02:15 l Pain Noel Active Problem 07/23/2012 [facility], [facility] [place],[facility], [place] Sleep Problem Active 2012-07-23 Memor ia apnea 09:02:15 l Sleep [place] apnea Active Problem 07/23/2012 [place] Fused Problem Active 2016-03-14 Memor ia structure 02:15:12 l (morpholog Fused Jessica nn ic structure abnormalit (morpholog y) ic abnormalit y) Active Problem 6 [facility], [place] CHEST PAIN Diagnosis Active 2011-02-16 Memoria NOS 11:42:00 l CHEST Noel PAIN NOS Active [place] ATRIAL Diagnosis Active 2014-02-02 Mem oria FIBRILLATI 22:29:00 l ON ATRIAL [place] FIBRILLATI ON Active [facility] ANGINA Diagnosis Active 2011-04-30 Mem oria DECUBITUS 15:36:00 l ANGINA Noel DECUBITUS Active [facility] SLEEP Diagnosis Active 2011-08-22 Mem oria APNEA NOS 15:27:00 l SLEEP Noel APNEA NOS Active [place] GASTROINTE Diagnosis Active 2011-09-[address] HEMORR 22:00:00 l NOS [place] GASTROINTE ST HEMORR NOS Active [place] LUMB/LUMBO Diagnosis Active 2012-02-05 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 Active [facility] SPIN Diagnosis Active 2012-02-05 Mem oria STEN,LUMBR 15:16:00 l WO OMARI SPIN Noel STEN,LUMBR WO OMARI Active [facility] LUMBOSACRA Diagnosis Active 2012-02-05 Memoria L 15:16:00 l SPONDYLOSI Pankaj n S LUMBOSACRA L SPONDYLOSI S Active [facility] AMI Diagnosis Active 2012-03-07 Mem oria NOS-INITIA 08:55:00 l L EPISODE AMI [place] NOS-INITIA L EPISODE Active [facility] PNEUMONIA, Diagnosis Active 2014-03-13 Memoria ORGANISM 17:32:00 l NOS Noel PNEUMONIA, ORGANISM NOS Active [facility] ENLARGEMEN Diagnosis Active 2014-04-02 Memoria T LYMPH 06:14:00 l NODES Noel ENLARGEMEN T LYMPH NODES Active [facility] CHEST Diagnosis Active 2015-05-01 Mem oria PAIN, 21:54:00 l UNSPECIFIE CHEST Jessica nn D PAIN, UNSPECIFIE D Active [facility] ILLNESS, Diagnosis Active 2018-11-30 M emoria UNSPECIFIE 04:35:00 l D ILLNESS, Pankaj n UNSPECIFIE D Active [facility] ACUTE Diagnosis Active 2017-03-22 Mem oria EMBOLISM 08:39:00 l AND ACUTE [place] THOMBOS EMBOLISM UNSP DEEP AND VEI THOMBOS UNSP DEEP VEI Active [facility] SYNCOPE Diagnosis Active 2017-04-20 Me moria AND 21:57:00 l COLLAPSE SYNCOPE Jessica nn AND COLLAPSE Active [facility] ANEMIA, Diagnosis Active 2017-04-20 Me moria UNSPECIFIE 21:57:00 l D ANEMIA, [place] UNSPECIFIE D Active [facility] UNSPECIFIE Diagnosis Active 2018-04-19 Memoria D ATRIAL 16:22:00 l FIBRILLATI Pankaj n ON UNSPECIFIE D ATRIAL FIBRILLATI ON Active [facility] HEART Diagnosis Active 2019-01-17 Mem oria FAILURE, 09:46:00 l UNSPECIFIE HEART Jessica nn D FAILURE, UNSPECIFIE D Active [facility] BENIGN Diagnosis Active 2018-11-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:14:00 l 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 Active [facility] RECURRENT Diagnosis Active 2018-11-30 Memoria AND PERST 14:14:00 l HEMATURIA [place] W UNSP MOR RECURRENT AND PERST HEMATURIA W UNSP MOR Active [facility] Illness, Problem 2018-12-03 Mem oria unspecifie 22:16:39 l d Illness, Pankaj n unspecifie d 12/03/2018 [facility] Immune Problem 2018-10-16 Memor ia thrombocyt 13:38:32 l 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 10/16/2018 [facility] Hypertensi Problem 2018-10-16 M emoria ve heart 13:38:32 l and [place] chronic Hypertensi kidney ve heart disease and with heart chronic failure kidney and stage disease 1 through with heart stage 4 failure chronic and stage kidney 1 through disease, stage 4 or chronic unspecifie kidney d chronic disease, kidney or disease unspecifie d chronic kidney disease 10/16/2018 [facility] Paroxysmal Problem 2018-10-16 M emoria atrial 13:38:32 l fibrillati Pankaj n on Paroxysmal atrial fibrillati on 10/16/2018 [facility] Encounter Problem 2018-10-16 Me moria for 13:38:32 l immunizati Pankaj n on Encounter for immunizati on 10/16/2018 [facility] Metabolic Problem 2018-10-16 Me moria syndrome 13:38:32 l [place] Metabolic syndrome 10/16/2018 [facility] Morbid Problem 2018-10-16 Memor ia (severe) 13:38:32 l obesity Morbid Noel due to (severe) excess obesity calories due to excess calories 10/16/2018 [facility] Dilated Problem 2018-10-16 Kaz david cardiomyop 13:38:32 l athy Dilated Noel cardiomyop athy 9 [facility] 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 rotic coronary heart artery disease of without ambler angina coronary pectoris artery without angina pectoris 10/16/2018 [facility] Chronic Problem 2018-10-16 Akz david kidney 13:38:32 l disease, Chronic Jessica nn stage 3 kidney (moderate) disease, stage 3 (moderate) 10/16/2018 [facility] Hyperlipid Problem 2018-10-16 M emoria emia, 13:38:32 l unspecifie Pankaj n d Hyperlipid emia, unspecifie d 10/16/2018 [facility] Bronchitis Problem 2018-10-16 M emoria , not 13:38:32 l specified Noel as acute Bronchitis or chronic , not specified as acute or chronic 10/16/2018 [facility] Unspecifie Problem 2018-10-16 M emoria d 13:38:32 l osteoarthr Pankaj n itis, Unspecifie unspecifie d d site osteoarthr itis, unspecifie d site 10/16/2018 [facility] Gout, Problem 2018-10-16 Memor ia unspecifie 13:38:32 l d Gout, Noel unspecifie d 10/16/2018 [facility] Presence Problem 2018-10-16 Mem oria of cardiac 13:38:32 l pacemaker Presence [place] of cardiac pacemaker 10/16/2018 [facility] Personal Problem 2018-10-16 Mem oria history of 13:38:32 l nicotine Personal Herm pinky dependence history of nicotine dependence 10/16/2018 [facility] 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 10/16/2018 [facility] Heart Problem 2018-10-16 Memor ia failure, 13:38:32 l unspecifie Heart Jessica nn d failure, unspecifie d 10/16/2018 [facility] Coronary Problem 2018-10-16 Mem oria angioplast 13:38:32 l y status Coronary Herm pinky angioplast y status 10/16/2018 [facility] Personal Problem 2018-10-16 Mem oria history of 13:38:32 l transient Personal [place] ischemic history of attack transient (TIA), and ischemic cerebral attack infarction (TIA), and without cerebral residual infarction deficits without residual deficits 10/16/2018 [facility] Anemia, Problem 2018-10-16 Kaz david unspecifie 13:38:32 l d Anemia, Noel unspecifie d 10/16/2018 [facility] Sleep Problem 2018-10-16 Memor ia apnea, 13:38:32 l unspecifie Sleep Jessica nn d apnea, unspecifie d 10/16/2018 [facility] Hypotensio Problem 2018-10-16 M emoria n, 13:38:32 l unspecifie Pankaj n d Hypotensio n, unspecifie d 10/16/2018 [facility] Personal Problem 2018-10-16 Mem oria history of 13:38:32 l other Personal Pankaj n venous history of thrombosis other and venous embolism thrombosis and embolism 10/16/2018 [place] Problem 2018-10-16 Memor ia myocardial 13:38:32 l infarction Old Pankaj n myocardial infarction 10/16/2018 [facility] 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 13:38:32 l [place] Monoclonal gammopathy 10/16/2018 [facility] Chest pain Problem Inactiv 2012-07-23 Memoria e 09:02:15 l Chest Noel pain Inactive Problem 07/23/2012 [facility], [facility] [place] [place] Nausea Problem Inactiv 2012-07-23 Kaz david e 09:02:15 l Nausea [place] Inactive Problem 07/23/2012 [facility], [facility] [place] [place] Cough Problem Inactiv 2012-07-23 Kaz david e 09:02:15 l Cough Noel Inactive Problem 07/23/2012 [facility], [facility] [place] [place] Cerebrovas Problem Resolve 2018-12-03 Memoria cular d 22:16:39 l accident [place] (disorder) Cerebrovas cular accident (disorder) Resolved Problem 12/03/2018 [facility] [place] [place] Diabetes Problem Resolve 2018-12-03 Me moria mellitus d 22:16:39 l (disorder) Diabetes He rmann mellitus (disorder) Resolved Problem 12/03/2018 pt states he is not a diabeticPA TIENT STATES HE IS NOT A DIABETICbo rder line [facility] [place],[facility] [place] Pneumonia Problem Resolve 2018-12-03 M emoria (disorder) d 22:16:39 l Noel Pneumonia (disorder) Resolved Problem 12/03/2018 [facility] [place] [place] CHF - Problem Resolve 2012-07-23 Kaz david Congestive d 09:02:15 l heart CHF - Noel failure Congestive heart failure Resolved Problem 07/23/2012 [facility] [place] DVT - Deep Problem Resolve 2012-07-23 Memoria vein d 09:02:15 l thrombosis DVT - Jessica nn of lower Deep vein limb thrombosis of lower limb Resolved Problem 07/23/2012 [facility] [place] History of Past Illness Condition Condition Condition Status Onset Resolution Last Treating Co mments Source Name Details Category Date Date Treatment Clinician Date Sick sinus Problem 2017-052018-10-16 2018-10-16 Memoria syndrome 06-07 13:38:32 13:38:32 l Sick 05:28: [place] sinus 29 syndrome 8 10/16/2018 [facility] Discharge Problem 2015-05-31 2015-05-31 Memoria Diagnosis: 05-28 04:51:27 04:51:27 l Chronic 06:00: Noel renal Discharge 00 insufficie Diagnosis: ncy Chronic renal insufficie ncy 05/28/2015 05/31/2015 [place] Discharge Problem 2015-05-31 2015-05-31 Memoria Diagnosis: 05-28 04:51:27 04:51:27 l Acute 06:00: Noel urinary Discharge 00 tract Diagnosis: infection Acute urinary tract infection 05/28/2015 05/31/2015 [place] Discharge Problem 2015-02-05 2015-02-05 Memoria Diagnosis: 02-02 03:21:07 03:21:07 l Accidental 05:00: Pankaj n fall Discharge 00 Diagnosis: Accidental fall 02/02/2015 02/05/2015 [facility] Discharge Problem 2015-02-05 2015-02-05 Memoria Diagnosis: 02-02 03:21:07 03:21:07 l Contusion 05:00: [place] of hip Discharge 00 Diagnosis: Contusion of hip 02/02/2015 02/05/2015 [facility] Discharge Problem 2014-07-08 2014-07-08 Memoria Diagnosis: 07-06 20:37:37 20:37:37 l Hemoptysis 06:00: Pankaj n Discharge 00 Diagnosis: Hemoptysis 07/06/2014 07/08/2014 [place] Allergies, Adverse Reactions, Alerts Allergy Allergy Status Severity Reaction(s) Onset Inactive Treating Comm ents Source Name Type Date Date Clinician Sulfamet Propensi Active 2016-05 [place] hoxazole ty to 2-05 [facility] -Trimeth adverse 00:00: st oprim reaction 00 s to drug Clopidog Propensi Active 2016-05 [place] rel ty to 2-05 [facility] adverse 00:00: st reaction 00 s to drug Sulfa Propensi Active 2016-05 [place] (Sulfona ty to 2-05 Methodi mide adverse 00:00: st Antibiot reaction 00 ics) s to drug sulfa sulfa Active Memoria drugs drugs l [place] Plavix Plavix Active Memoria l Noel Bactrim Bactrim Active Severe Memoria l [place] NKFA NKFA Active Memoria l Noel Social History Social Habit Start Date Stop Date Quantity Comments Source Sex Assigned At [place] M ethodist Social History 2018-03-25 2018-03-25 [facility] ermann 23:48:44 23:48:44 Alcohol intake 2017-04-23 2017-04-23 Current [facility] thodist 00:00:00 00:00:00 non-drinker of alcohol (finding) Smoking Status Start Date Stop Date Source Never smoker [place] Methodis t Medications Ordered Filled Start Stop Current [...] No Notes: Memor ia 100 MG Oral -24 (Same as: l Capsule 22:00: Neurontin) Eliquis No Notes: Memoria 7-24 Same as: l 22:00: Eliquis Amiodarone No Notes: Memor ia 7-24 (Same as: l 22:00: Cordarone) Saline No Notes: Memoria Flush 0.9% -24 Same as: l 14:00: BD Posiflush Sterile Furosemide No Notes: Memor ia 7-24 (Same as: l 14:00: Lasix) carvedilol No Notes: Memor ia 7-24 Give with l 14:00: food. [place] 00 (Same As: Coreg) Aspirin 81 No Notes: Do Me moria MG Enteric 7-24 not crush l Coated 14:00: or chew. [place] Tablet 00 (Same As: Ecotrin) Acetaminoph No Notes: Do M emoria en 300 MG / 724 not exceed l Codeine 09:27: 4gm/day of Herm pinky Phosphate 00 acetaminop 30 MG Oral hen. Tablet (Same as: [Tylenol Tylenol with with Codeine #3] Codeine # 3) Saline No Notes: Memoria Flush 0.9% -24 Same as: l 06:21: BD Noel 00 Posiflush Sterile apixaban Yes 2.5 mg, Memori a 2.5 MG Oral 7-24 PO, BID, 0 l Tablet 03:56: Refill(s) Pankaj pena [Eliquis] 00 atorvastati Yes 40 mg = 1 M emoria n 40 mg 7-24 tab, PO, l oral tablet 03:56: Daily, 0 He rmann 00 Refill(s) losartan No 100 mg = 1 Mem oria 100 mg oral 7-24 tab, PO, l tablet 03:56: Daily, 0 Noel 00 Refill(s) Acetaminoph Yes 1 tab, PO, Memoria en 325 MG / 7-24 Q6H, PRN l Hydrocodone 03:56: Pain, 0 [...] PO, l mg oral 19:32: Q12H, 0 Noel tablet 00 Refill(s) Amiodarone 2017-05 No Notes: Memor ia 1-19 (Same as: l 23:00: Cordarone) Fentanyl 2017-05 No 100 Memoria 1-19 microgram, l 20:12: Route: IV, ONCE, Dosing Weight 137.727, kg, Start date: 03/28/18 14:12:00 OPHTHALMIC TECHNICIAN, Stop date: 03/28/18 14:12:00 OPHTHALMIC TECHNICIAN Midazolam 2017-05 No 2 mg, Memoria 1-19 Route: IV, l 20:12: ONCE, Dosing Weight 137.727, kg, Start date: 03/28/18 14:12:00 OPHTHALMIC TECHNICIAN, Stop date: 03/28/18 14:12:00 OPHTHALMIC TECHNICIAN metoprolol 2017-05 No Notes: Memor ia tartrate 1-19 (Same as: l 03:00: Lopressor) Warfarin 2017-05 No Notes: [place] 118 Nurse to l 23:00: ensure documentat ion [...] l 23:00: Cordarone) Warfarin 2017-05 No Notes: Memoria 1-17 Nurse to l 23:00: ensure documentat [...] Blood Glucose Results, Start date: 03/26/18 12:50:00 OPHTHALMIC TECHNICIAN, Duration: 30 day, Stop date: 04/25/18 12:49:00 OPHTHALMIC TECHNICIAN Dextrose 2017-05 No 12.5 gm, Memor ia 50% Syringe -17 25 mL, l 18:50: Route: Noel 00 IVP, Drug Form: INJ, Dosing Weight 137.727, kg, PRN, PRN Blood Glucose Results, Start date: 03/26/18 12:50:00 OPHTHALMIC TECHNICIAN, Duration: 30 day, Stop date: 04/25/18 12:49:00 OPHTHALMIC TECHNICIAN Senokot 2017-05 No Notes: Memoria 1-17 (Same as: l 15:00: Senokot) Noel docusate 2017-05 No Notes: Memoria sodium 100 -17 (Same as: l mg oral 15:00: Colace) [place] capsule (Do Not Crush) Allopurinol 2017-05 No Notes: Kaz david -17 (Same as: l 15:00: Zyloprim) [place] Amoxicillin 2017-05 No Notes: Kaz david / -17 With food. l Clavulanate 15:00: (Same as: H erm Augmentin 875) Prednisone 2017-05 No Route: PO, M emoria 1-17 Daily, l 15:00: Dosing [place] 00 Weight 137.727, kg, Start date: 03/26/18 9:00:00 OPHTHALMIC TECHNICIAN, Duration: 30 day, Stop date: 04/24/18 9:00:00 OPHTHALMIC TECHNICIAN Losartan 2017-05 No Notes: Memoria 1-17 (Same as: l 15:00: Cozaar) Noel Aspirin 81 2017-05 No Notes: Do Me moria MG Enteric -17 not crush l Coated 15:00: or chew. Onel Tablet 00 (Same As: Ecotrin) Lovenox 2017-05 No Notes: Memoria 1-17 (Same as: l 03:00: Lovenox) [place] 00 atorvastati 2017-05 No Notes: Kaz david n 1-17 (Same as: l 03:00: Lipitor) DuoNeb 2017-05 No Notes: Memoria inhalation 1-16 (Same as: l solution 23:22: Duoneb) Pankaj Amiodarone 2017-05 No Notes: Memor ia 1-16 (Same as: l 23:00: Cordarone) gabapentin 2017-05 No Notes: Memor ia 100 MG Oral 16 (Same as: l Capsule 23:00: Neurontin) SENOKOT-S 2017-05 No 1 tab, Memori a 16 Route: PO, l 23:00: Dosing Weight 137.727, kg, BID, Start date: 03/25/18 17:00:00 OPHTHALMIC TECHNICIAN, Duration: 30 day, Stop date: 04/24/18 9:00:00 OPHTHALMIC TECHNICIAN carvedilol 2017-05 No Notes: Memor ia -16 Give with l 23:00: food. (Same As: Coreg) 200 ACTUAT 2017-05 No 2 puff, Kaz david Albuterol 16 Route: l 0.09 22:51: INHALER, [place] MG/ACTUAT / 00 Drug Form: Ipratropium AERO/A, [place] Dosing 0.018 Weight MG/ACTUAT 137.727, Metered kg, BID, Dose PRN Inhaler Wheezing, [Combivent] Start date: 03/25/18 16:51:00 OPHTHALMIC TECHNICIAN, Duration: 30 day, Stop date: 04/24/18 16:50:00 OPHTHALMIC TECHNICIAN gabapentin 2017-05 Yes 200 mg = 2 [...] emoria 1-16 BID, 0 l 22:32: Refill(s) [place] 00 Losartan 2017-05 No 100 mg, Memori a 1-16 PO, Daily, l 22:32: 0 [place] 00 Refill(s) warfarin 2017-05 No 2.5 mg = 1 Mem oria 2.5 mg oral 1-16 tab, PO, l tablet 22:32: Daily, 0 Refill(s) Prednisone 2017-05 No See Memoria 1-16 Instructio l 22:32: ns, 4 TABS Noel 00 DAILY FOR 4 DAYS SINCE EN 3 TABS DAILY FOR 4 DAYS,2 TABS DAILY FOR 4 DAYS,THEN 1 TAB DAILY FOR 4 DAYS, 0 Refill(s) Aspirin 81 2017-05 Yes 81 mg = 1 Me moria MG Enteric 1-16 tab, PO, l Coated 22:32: Daily, # [place] Tablet 00 90 tab, 3 Refill(s) allopurinol 2016-05 Yes 100mg QD Take 100 [...] MG 11:45: mouth st tablet 44 daily. tamsulosin 2016-05 Yes .4mg QD Take 0.4 Shayla ston (FLOMAX) 2-19 mg by Methodi 0.4 mg 11:45: mouth st capsule,ext 44 daily. ended release 24hr Losartan 2016-05 No Notes: Memoria 2- (Same [...] Codeine 02:05: 4gm/day of Herm pinky Phosphate 00 acetaminop 30 MG Oral hen. Tablet (Same as: [Tylenol Tylenol with with Codeine #3] Codeine # 3) Furosemide 2016-05 No Notes: Memor ia -30 (Same as: l 23:00: Lasix) Noel 00 May cause GI upset. Give with food or milk. SENOKOT-S 2016-05 No 1 tab, Memori a 06-08 Route: PO, l 23:00: Dosing [place] Weight 145.909, kg, BID, Start date: 04/08/17 17:00:00 OPHTHALMIC TECHNICIAN, Duration: 30 day, Stop date: 05/08/17 9:00:00 OPHTHALMIC TECHNICIAN carvedilol 2016-05 No Notes: Memor ia -30 Give with l 23:00: food. Noel 00 (Same As: Coreg) Senokot 2016-05 No Notes: Memoria 06-08 (Same as: l 23:00: Senokot) Noel 00 200 ACTUAT 2016-05 No Notes: Memor ia Albuterol 06-08 Same as: l 0.09 22:48: Combivent [place] MG/ACTUAT / 00 Respimat Ipratropium WASTE: [place] Aerosol - 0.018 Return to MG/ACTUAT Pharmacy Metered Dose Inhaler [Combivent] Insulin 2016-05 No Notes: Memoria Lispro 06-08 Roll in l 22:41: palms of Noel hands gently; Do not shake `vigorousl y. (Same as: Humalog ) "Single Patient Use Only " WASTE: F/P - Black; E - Municipal Trash Bin Stable for 28 days at room temperatur e. Expires in days from ____Date Glucagon 2016-05 No 1 mg, Memoria 06-08 Route: IM, l 22:41: Drug form: Noel PDR/INJ, PRN, Dosing Weight 145.909, kg, PRN Blood Glucose Results, Start date: 04/08/17 16:41:00 OPHTHALMIC TECHNICIAN, Duration: 30 day, Stop date: 05/08/17 16:40:00 OPHTHALMIC TECHNICIAN Dextrose 2016-05 No 25 gm, 50 Kaz david 50% Syringe 1-30 mL, Route: l 22:41: IVP, Drug [place] 00 Form: INJ, Dosing Weight 145.909, kg, PRN, PRN Blood Glucose Results, Start date: 04/08/17 16:41:00 OPHTHALMIC TECHNICIAN, Duration: 30 day, Stop date: 05/08/17 16:40:00 OPHTHALMIC TECHNICIAN carvedilol 2016-05 No 25 mg = 1 Me moria 25 mg oral 1-30 tab, PO, l tablet 20:52: BID, # 180 Jessica nn 00 tab, 0 Refill(s) Golytely 2016-05 No Notes: Memoria 1-13 (polyethyl l 19:56: irina glycol Noel electrolyt e solution 4 Liter bottle) (Same [...] ia 1-11 (Same as: l 23:00: Norvasc) Noel 00 Potassium 2016-05 No Notes: Memori a Chloride 1-11 (Same as: l 18:04: K-Dur 20) Noel 00 "Do Not Crush" With food and full glass of water tramadol 2016-05 No Notes: Not Mem oria hydrochlori -11 to exceed l de 50 MG 16:41: 400mg/day. [place] Oral Tablet 00 (Same As: Ultram) Tylenol 2016-05 No Notes: Do Memor ia 1-11 not exceed l 00:51: 4 gm/day. Noel 00 (Same as: Tylenol) Protonix 2016-05 No Notes: Memoria 1-10 Tablet l 17:44: should not [place] 00 be chewed or crushed. (Same as: Protonix) Enoxaparin 2016-05 No Notes: Memor ia 05-18 Nurse to l 19:30: ensure Noel 00 documentat ion of patient education per anticoagul ation policy. (Same as: Lovenox) Coumadin 2016-05 No Notes: Memoria 05-18 Nurse to l 19:05: ensure [place] 00 documentat ion of patient education per anticoagul ation policy. Avoid large intake of vitamin-K containing foods diet. (Same As: Coumadin) WASTE: F/P - P Waste Black; E - P Waste Black Potassium 2016-05 No Notes: Memori a Chloride 05-18 (Same as: l 16:51: K-Dur 20) [place] 00 "Do Not Crush" With food and [...] Total Volume: 250, Start Date: 03/17/17 11:37:00 OPHTHALMIC TECHNICIAN, Duration: 30 day, Stop date: 04/16/17 11:36:00 OPHTHALMIC TECHNICIAN, Replace Every: 24 hr bivalirudin 2016-05 No 250 mg, Mem oria 50 MG/ML 05-17 250 mL, l Injectable 17:35: Rate: Pankaj n Solution 00 Start at 0.05 mg/kg/hr, Dosing Weight 147.909, kg, Route: IV, Total Volume: 250, Start Date: 03/17/17 11:35:00 OPHTHALMIC TECHNICIAN, Duration: 30 day, Stop date: 04/16/17 11:34:00 OPHTHALMIC TECHNICIAN, Replace Every: 24 hr Losartan 2016-05 No Notes: Memoria 05-17 (Same as: l 15:00: Cozaar) No[place] 00 Furosemide 2016-05 No Notes: Memor ia 1-08 (Same as: l 15:00: Lasix) Noel 00 May cause GI upset. Give with food or milk. carvedilol 2016-05 No Notes: Memor ia - Give with l 15:00: food. Noel (Same As: Coreg) Allopurinol 2016-05 No Notes: Kaz david -08 (Same as: l 15:00: Zyloprim) [place] 00 Potassium 2016-05 No Notes: Memori a Chloride 08 (Same as: l 14:17: K-Dur 20) Noel 00 "Do Not Crush" With food and full glass of water Lovenox 2016-05 No Notes: Memoria 05-17 Nurse to l 12:00: ensure [place] 00 documentat ion of patient education per anticoagul ation policy. (Same as: Lovenox) Senokot 2016-05 No Notes: Memoria 05-17 (Same as: l 03:00: Senokot) Noel 00 tamsulosin 2016-05 No Notes: Memor ia 08 (Same As: l 03:00: Flomax) Noel 00 "Do Not Crush" SENOKOT-S 2016-05 No 2 tab, Memori a 05-17 Route: PO, l 03:00: Dosing No[place] 00 Weight 147.909, kg, Bedtime, Start date: 03/16/17 21:00:00 OPHTHALMIC TECHNICIAN, Duration: 30 day, Stop date: 04/14/17 21:00:00 OPHTHALMIC TECHNICIAN atorvastati 2016-05 No Notes: Kaz david n -08 (Same as: l 03:00: Lipitor) Noel 00 200 ACTUAT 2016-05 No Notes: Memor ia Albuterol 08 Same as: l 0.09 00:45: Combivent [place] MG/ACTUAT / 00 Respimat Ipratropium WASTE: [place] Aerosol - 0.018 Return to MG/ACTUAT Pharmacy Metered Dose Inhaler [Combivent] Streptococc 2016-05 No Notes: Kza david us 1-08 Shake well l pneumoniae 00:35: prior to Her [place] serotype 1 45 use (Same capsular as: antigen Prevnar diphtheria 13) [id number] protein conjugate vaccine / Streptococc us pneumoniae serotype 14 capsular antigen diphtheria [id number] protein conjugate vaccine / Streptococc us pneumoniae serotype 18C capsular antigen d carvedilol 2016-05 No 25 mg = 1 Me moria 25 mg oral 1-08 tab, PO, l tablet 00:28: BID, 0 Noel 00 Refill(s) Furosemide 2016-05 Yes 40 mg, PO, M emoria 1-08 BID, 0 l 00:28: Refill(s) [place] 00 tamsulosin 2016-05 Yes 0.4 mg, Kaz david 1-08 PO, l 00:28: Bedtime, 0 [place] 00 Refill(s) Losartan 2016-05 Yes 100 mg, Memori a 1-08 PO, Daily, l 00:28: 0 [place] 00 Refill(s) sodium 2016-05 No 1,000 mL, Memori a chloride 05-16 Rate: 75 l 0.9% 1000 23:43: ml/hr, Pankaj n ml INJ 00 Infuse 1,000 mL over: 13.3 hr, Route: IV, Dosing Weight 147.909 kg, Total Volume: 1,000, Start date: 03/16/17 17:43:00 OPHTHALMIC TECHNICIAN, Duration: 30 day, Stop date: 04/15/17 17:42:00 OPHTHALMIC TECHNICIAN Lovenox 2016-05 No Notes: Memoria 05-16 Nurse to l 21:10: ensure documentat ion of patient education per [facility] policy. (Same as: Lovenox) carvedilol 2015-05 Yes [...] ia 05-11 Give with l 02:00: food. [place] 00 (Same As: Coreg) Amiodarone 2015-05 No Notes: Memor ia 05-10 (Same as: l 22:00: Cordarone) Sodium 2015-05 No 250 mL, Memoria Chloride 05-10 Route: l 0.9% IV 20:01: IVPB, [place] 00 Start date: 03/10/16 15:01:00 CDT, Duration: 30 day, Stop date: 04/09/16 14:00:00 OPHTHALMIC TECHNICIAN, PRN Line Flush BD Normal 2015-05 No [...] Duration: 30 day, Stop date: 04/07/16 21:00:00 OPHTHALMIC TECHNICIAN atorvastati 2015-05 No Notes: Kaz david n 05-10 (Same as: l 02:00: Lipitor) Alprazolam 2015-05 No Notes: Memor ia 0.5 MG Oral 05-10 With food l Tablet 02:00: or milk (Same as: Xanax) Senokot 2015-05 No Notes: Memoria 05-10 (Same as: l 02:00: Senokot) [place] 00 Colchicine 2015-05 No 0.6 mg, 1 Me moria 0.6 MG Oral 05-10 tab, l Tablet 00:58: Route: PO, Jessica nn 00 Drug form: TAB, BID, Dosing Weight 132.727, kg, PRN Shortness of breath, Start date: 03/09/16 19:58:00 CDT, Duration: 30 day, Stop date: 04/08/16 19:57:00 OPHTHALMIC TECHNICIAN 200 ACTUAT 2015-05 No Notes: Memor ia Albuterol 05-10 Same as: l 0.09 00:58: Combivent Noel MG/ACTUAT / 00 Respimat Ipratropium WASTE: [place] Aerosol - 0.018 Return to MG/ACTUAT Pharmacy Metered Dose Inhaler [Combivent] acetaminoph 2015-05 No Notes: Kaz david en-hydrocod 05-10 (Same as: l one 325 00:08: Hendrum [place] mg-5 mg 00 325/5) Do oral tablet not exceed 4gm/day [...] Memoria 9-10 Take with l 14:00: food. [place] 00 pregabalin Yes 200 mg = 1 M [...] 01-16 (Same as: l / 23:01: Duoneb) Noel Ipratropium 00 [place] 0.167 MG/ML Inhalant Solution [DuoNeb] Nitroglycer No Notes: Kaz david in 0.4 MG 01-16 (Same l Sublingual 23:01: as:Nitroqu H ermann Tablet 00 ick, Nitrostat) "Do Not Crush" Sublingual tablet Enoxaparin No Notes: Memor ia 01-16 (Same as: l 23:00: Lovenox) Noel 00 Docusate No Notes: Memoria 01-16 (Same as: l 22:59: Colace) Noel 00 (Do Not Crush) Acetaminoph No Notes: Do M emoria en 01-16 not exceed l 22:59: 4 gm/day. [place] 00 (Same as: Tylenol) Ondansetron No Notes: Kaz david 01-16 (Same as: l 22:59: Zofran) [place] 00 MEDICATION WASTE Product Size: 4 mg Product Wasted: ___ mg Morphine No Notes: Memoria 01-16 (Same l 22:59: as:MORPhin [place] 00 e Sulfate) Acetaminoph No Notes: Kaz david en 325 MG / 01-16 (Same as: l Hydrocodone 22:59: Hendrum Jessica nn Bitartrate 00 325/5) Do 5 [...] mg = 1 Memoria oin 100 MG -19 cap, PO, l Oral 22:38: BID, X 10 [place] Capsule day, # 20 [Macrobid] cap, 0 Refill(s) Rocephin No Notes: Memoria 05-28 (Same As: l 22:12: Rocephin). Use with 100 mL NS and infuse over 30 min MEDICATION WASTE Product Size: 1000 mg Product Wasted: ___ mg Keflex 2014-05 No 500 mg, Memoria 2-16 Route: PO, l 22:14: Drug form: Noel CAP, ABXQ6H, Dosing Weight 130.004, kg, Start [...] Memoria Sulfate 2-14 (Same l 04:29: as:MORPhin Noel 00 e Sulfate) Senokot 2014-05 No Notes: Memoria [...] 2-13 (Same as: l Tablet 15:00: Lasix) Noel May cause GI upset. Give with food [...] david 2-13 (Same as: l 14:00: Apresoline Noel 00 ) May interfere w/enteral feedings Take With Food Lyrica 2014-05 No Notes: Memoria 2-13 Same as l 07:35: Lyrica [place] 00 200 ACTUAT 2014-05 No Notes: Memor ia Albuterol 2-13 Same as: l 0.09 07:30: Combivent Noel MG/ACTUAT / 00 Respimat Ipratropium [place] 0.018 MG/ACTUAT Metered Dose Inhaler [Combivent] Alprazolam [...] moria 2-13 Bedtime, 0 l 07:11: Refill(s) Noel amLODIPine 2014-05 Yes 10 mg = 1 Me moria 10 mg oral 2-13 tab, PO, l tablet 07:11: Daily, 0 [place] 00 Refill(s) Amoxicillin 2014-05 No 1 tab, PO, Memoria 875 MG / 2-13 BID, # 20 l Clavulanate 07:11: tab, 0 Herm pinky 125 MG Oral 00 Refill(s) Tablet Protonix 2014-05 No Notes: Memoria 2-13 Tablet l 07:11: should not [place] 00 be chewed or crushed. (Same as: [...] 06-22 Route: l 0.9% IV 07:09: IVPB, [place] 00 Start date: 04/21/15 1:09:00, Duration: 30 [...] / 02-02 (Same as: l Hydrocodone 21:30: Hendrum Jessica nn Bitartrate 00 325/5) Do 5 MG Oral not exceed Tablet 4gm/day of [[place] acetaminop 5/325] hen. Saline No Notes: Memoria Flush 0.9% 02-02 (Same as: l 21:18: BD Posiflush) Barium No Notes: Memoria Sulfate 02-02 [...] cap, PO, l Capsule 19:56: TID, 0 [place] 00 Refill(s) Zinacef 2013-05 No Notes: Memoria [...] (Same as: l MEQ 12:48: K-Dur 20) Extended 00 "Do Not Release Crush" Tablet [...] 0-25 NOT break, l 14:00: chew or [place] 00 open capsules for administra tion. 120 ACTUAT 2013-05 Yes 2 Memoria Budesonide 0-25 inhalation l 0.16 13:15: , Noel MG/ACTUAT / 00 INHALATION formoterol , Q12H, [...] Memoria 0-24 (Same as: l 22:00: Lasix) Noel 00 May cause GI upset. Give with food or milk. Diovan 2013-05 No Notes: Memoria 0-24 Same as l 18:17: Diovan Noel 00 homatropine 2013-05 No Notes: Kaz david -hydrocodon 0-24 (Same as: l e 15:10: Hycodan, [place] 00 Hydromet) 120 ACTUAT 2013-05 No Notes: Memor ia Budesonide 0-24 (Same as: l 0.16 15:09: Symbicort) [place] MG/ACTUAT / 00 formoterol fumarate 0.0045 MG/ACTUAT [...] as: l / 15:05: Duoneb) Ipratropium 18 [place] 0.167 MG/ML Inhalant Solution [DuoNeb] Lasix 2013-05 [...] Memoria 0-22 (Same as: l 17:59: Narcan) 1/2 NS 500 2013-05 No 500 mL, Kaz [...] 0-21 (Same As: l 22:00: Tessalon Noel Perles) "Do Not Crush" Budesonide 2013-05 No Notes: Memor ia 0.25 MG/ML 0-21 (Same As: l Inhalant 14:00: Pulmicort) [place] Solution 00 [Pulmicort] Protonix 2013-05 No Notes: Memoria 0-21 Tablet l 14:00: should not [place] 00 be chewed or crushed. (Same as: Protonix) Allopurinol 2013-05 No Notes: Kaz david 0-21 (Same as: l 14:00: Zyloprim) Noel 00 Magnesium 2013-05 No 2 gm, 50 Kaz david Sulfate 0-21 mL, Route: l 12:19: IVPB, Drug Noel 00 form: INJ, ONCE, Dosing Weight 127.1, [...] 0-21 Route: PO, l 02:00: Drug form: [place] 00 TAB, Bedtime, Dosing Weight 126.3, kg, [...] l / 02:00: Duoneb) Noel Ipratropium 00 [place] 0.167 MG/ML Inhalant Solution [DuoNeb] Coreg 2013-05 [...] n 0-20 (Same As: l 23:00: Zithromax [place] 00 IV) Ceftriaxone 2013-05 No Notes: Kaz david 0-20 (Same As: l 23:00: Rocephin). Noel 00 Use with 100ml NS mini-bag PLUS and infuse over 30 min Robitussin- 2013-05 No Notes: Kaz david AC oral 0-20 (Same As: l syrup 22:24: Robitussin Pankaj n 00 AC) Albuterol 2013-05 No Notes: Memori a 0.833 MG/ML 0-20 (Same as: l / 22:24: Duoneb) [place] Ipratropium 00 [place] 0.167 MG/ML Inhalant Solution [DuoNeb] Acetylcyste 2013-05 No 600 mg, 3 M emoria ine 200 0-20 mL, Route: l MG/ML 22:10: PO, Drug [place] Inhalant 00 form: Solution SOLN, BID, Dosing Weight 126.3, kg, Priority: NOW, Start date: 02/26/14 17:10:00, Duration: 1 day, Stop date: 02/27/14 17:00:00 Amiodarone 2013-05 No 200 mg, Kaz david 0-20 Route: PO, l 22:00: Drug form: [place] 00 TAB, BID, Dosing Weight 126.3, kg, Start date: 02/26/14 17:00:00, Duration: 30 day, Stop date: 03/28/14 9:00:00 carvedilol 2013-05 No 12.5 mg, Mem oria 0-20 Route: PO, l 22:00: Drug form: [place] 00 TAB, BID, Dosing Weight 126.3, kg, [...] 0-20 With food l 18:23: or milk [place] 00 (Same as: Xanax) 200 ACTUAT 2013-05 No Notes: Memor ia Albuterol 0-20 Same as: l 0.09 18:23: Combivent [place] MG/ACTUAT / 00 Respimat Ipratropium [place] 0.018 MG/ACTUAT Metered Dose Inhaler [Combivent] Cordarone 2013-05 No Notes: Memori a 0-20 (Same as: l 18:10: Cordarone) [place] 00 Coreg 2013-05 No Notes: Memoria 0-20 Give with l 18:09: food. [place] 00 (Same As: Coreg) atorvastati 2013-05 Yes 40 mg = 1 M emoria n 40 mg 0-20 tab, PO, l oral tablet 09:14: Bedtime, 0 [place] 00 Refill(s) carvedilol 2013-05 Yes 12.5 mg = Me moria 12.5 mg 0-20 1 tab, PO, l oral tablet 09:14: BID, 0 Refill(s) allopurinol 2013-05 Yes 100 mg = 1 Memoria 100 mg oral 0-20 tab, PO, l tablet 09:14: Daily, 0 Noel 00 Refill(s) AMIODarone 2013-05 Yes 200 mg [...] Notes: Memoria 0-20 (Same l 07:34: as:MORPhin [place] 00 e Sulfate) aspirin 2013-05 No Notes: Memoria 0-20 Take with l 05:28: food. Morphine 2013-05 No Notes: Memoria 0-20 (Same l 04:27: as:MORPhin [place] 00 e Sulfate) atorvastati Yes 40 mg [...] 12.5 mg = Me moria 12.5 mg 01-28 1 tab, PO, l oral tablet 13:00: BID, # 60 H ermann 00 tab, 0 Refill(s) Docusate No Notes: Memoria Sodium 100 01-27 (Same as: l MG Oral 15:38: Colace) [place] Capsule 00 (Do Not [Colace] Crush) Coreg No Notes: Memoria 9-20 Give with l 14:00: food. [place] 00 (Same As: Coreg) Cordarone No Notes: Memori a 01-27 (Same as: l 14:00: Cordarone) [place] Magnesium No 2 gm, 50 Kaz david Sulfate 9-20 mL, Route: l 13:07: IVPB, Drug Noel form: INJ, ONCE, Dosing Weight 119.801, kg, Start date: 01/27/14 8:07:00, Duration: 2 hr, Stop date: 01/27/14 8:07:00 Lipitor No Notes: Memoria 01-27 (Same As: l 02:00: Lipitor) Noel Magnesium No 2 gm, 50 Kaz david Sulfate 9-20 mL, Route: l 00:17: IVPB, Drug [place] form: INJ, ONCE, Dosing Weight 119.801, kg, [...] moria 01-26 "Recommend l 21:29: ation: Use [place] 00 an in-line filter during administra tion for continuous infusions to reduce the incidence of phlebitis" (Same as: Cordarone) Pradaxa No Notes: DO Memor ia 01-26 NOT break, l 15:41: chew or [place] 00 open capsules for administra tion. Aspirin 81 No Notes: Do Me moria MG Enteric 01-26 not crush l Coated 14:00: or chew. [place] Tablet 00 (Same As: Ecotrin) gabapentin No Notes: Memor ia 400 MG Oral 01-26 (Same as: l Capsule 14:00: Neurontin) Herm pinky [Neurontin] 00 Digoxin No Notes: Memoria 01-26 Take on an l 14:00: Empty [place] Stomach (Same as: Lanoxin) Coreg No Notes: [...] 01-26 Tablet l 12:30: should not Noel 00 be chewed or crushed. (Same as: Protonix) tramadol No Notes: Not Mem oria hydrochlori 01-26 to exceed l de 50 MG 11:56: 400mg/day. [place] Oral Tablet 00 (Same As: Ultram) Alprazolam No Notes: Memor ia 01-26 With food l 11:55: or milk [place] (Same as: Xanax) Morphine No Notes: Memoria 01-26 (Same as: l 11:52: MORPhine [place] 00 Sulfate) Acetaminoph No Notes: Kaz david en 325 MG / 01-26 (Same as: l Hydrocodone 11:52: Hendrum Jessica nn Bitartrate 00 325/5) Do 5 MG Oral not exceed Tablet 4gm/day of [[place] acetaminop 5/325] hen. Lasix No Notes: Memoria 01-26 (Same as: l 11:51: Lasix) Noel 00 Zofran No Notes: Memoria 01-26 (Same as: l 11:51: Zofran) [place] 00 Tylenol No Notes: Do Memor ia 01-26 not exceed l 11:51: 4 gm/day. Noel 00 (Same as: Tylenol) Hydralazine No Notes: Kaz david 01-26 (Same as: l 11:50: Apresoline ) Push over 5 minutes Sodium No [...] Daily, # l 10:22: 30 tab, 0 [place] 00 Refill(s) gabapentin Yes PO, BID, 0 M emoria 400 MG Oral 01-26 Refill(s) l Capsule 10:22: Noel [Neurontin] 00 tramadol Yes PO, Q12H, Kaz david hydrochlori 01-26 Pain, 0 l de 50 MG 10:22: Refill(s) Herm pinky Oral Tablet 00 200 ACTUAT Yes INHALER, Mem oria Albuterol 01-26 SOB, 0 l 0.09 10:22: Refill(s) Noel MG/ACTUAT / 00 Ipratropium [place] 0.018 MG/ACTUAT Metered Dose Inhaler [Combivent] Digoxin No 125 Memoria 01-26 microgram, l 10:22: PO, Daily, [place] 00 0 Refill(s) carvedilol No 25 mg = 1 Me moria 25 MG Oral 01-26 tab, PO, l Tablet 10:22: BID, # 180 Jessica nn [Coreg] 00 tab, 0 Refill(s) Hendrum Yes PO, PRN, Memoria 10/325 oral 3-13 Substituti l tablet 20:45: on Noel 32 Allowed, Maintenanc e Protonix 40 Yes [...] [place] 400 ml/hr, l 18:00: Route: IV, [place] 00 Drug Form: SOLN, ONCE, Start date: 07/11/12 12:00:00, Stop date: 07/11/12 12:00:00 Omnipaque Yes Arnaldo R 100 mL, M emoria 300 3-04 [place] 400 ml/hr, l 17:40: Route: IV, [place] 00 Drug Form: SOLN, ONCE, Start date: 07/11/12 11:40:00, Stop date: 07/11/12 11:40:00 Neurontin 2011-05 No Bhagwat 600 mg, 2 Memoria 0-20 [place] cap, l 14:00: m Catalan Route: PO, Herm pinky 00 Drug form: CAP, TID, Start date: 02/27/12 9:00:00, Duration: 30 day, Stop date: 03/27/12 17:00:00 Demadex 2011-05 No Bhagwat 10 mg, 1 Mem oria 0-20 [place] tab, l 14:00: m Catalan Route: PO, Herm pinky 00 Drug form: TAB, Daily, Start date: 02/27/12 [...] 30 day, Stop date: 03/27/12 17:00:00 Phenergan 2011-05 No Bhagwat 25 mg, 1 M [...] 0.8 mL, l 06:00: m Catalan Route: Noel 00 SUB-Q, Drug form: INJ, [id number], Start date: 02/26/12 1:00:00, Duration: 30 day, [...] Duration: 30 day, Stop date: 03/26/12 23:44:00 Hendrum Yes Steffi 1 tab, PO, Kaz david /325 oral 12-07 Randee Q6H, PRN, l tablet 18:18: Judith-Pr 40 tab, He rmann 59 ashad for pain, Substituti on Allowed, Soft Stop, TAB Medrol Yes Steffi As Memoria Dosepak 4 12-07 Randee directed l mg Tablet 18:17: Judith-Pr on package [place] 13 ashad instructio ns, PO, Daily, 1 Pack, Substituti on Allowed, Take with or without foodTake with or without food [place] 5/325 No Steffi 1 tab, Me moria [...] 12/06/11 10:06:00, Stop date: 12/06/11 10:06:00 heparin 2011- No Rhea 7,500 Memoria 5000 12-04 Ana unit, 1.5 l units/mL 21:00: Francisco Javier mL, Route: [place] injectable 00 SUB-Q, solution Drug form: INJ, Q8H, Start date: 12/05/11 16:00:00, Duration: 30 day, Stop date: 01/04/12 8:00:00 senna No Iva Pankaj 8.6 mg, 1 M emoria 12-04 tab, l 14:00: Route: PO, Noel 00 Drug Form: TAB, BID, Start date: 12/05/11 9:00:00, Duration: 30 day, Stop date: 01/03/12 17:00:00 Colace 100 No Iva Pankaj 100 mg, 1 Memoria [...] or times, Stop date: 12/06/11 6:00:00 dexamethaso No Adan 4 mg, 1 M emoria ne 12-04 Lovy mL, Route: l 11:00: IV, Drug [place] 00 form: INJ, Q6H, Start date: 12/05/11 6:00:00, Duration: 12 doses or times, Stop date: 12/08/11 0:00:00 magnesium 2011- No Adan 2 gm, 50 Me moria sulfate 12-04 Lovy mL, Route: l 10:00: IVPB, Drug [place] 00 form: INJ, ONCE, Start date: 12/05/11 [...] 0.25 mL, l 04:51: Francisco Javier Route: [place] IVP, Drug form: INJ, Q5Min, PRN Pain Score 4-6, Start date: 12/04/11 23:51:00, Duration: 5 doses or times, Stop date: Limited # of times naloxone No Rhea 0.04 mg, Kaz david 12-04 Ana 0.1 mL, l 04:51: Francisco Javier Route: [place] 00 IVP, Drug form: INJ, Q2MIN, PRN Narcotic Reversal, Start date: 12/04/11 23:51:00, Duration: 8 doses or times, Stop date: Limited # of times flumazenil No Rhea 0.2 mg, 2 M emoria 12-04 Ana mL, Route: l 04:51: Francisco Javier IVP, Drug Jessica nn 00 form: INJ, PRN, PRN Benzodiaze pine Reversal, Initial dose, Start date: 12/04/11 23:51:00, Duration: 30 day, Stop date: 01/03/12 23:50:00 niCARdipine 2011- No Anayeli 0.25 mg, Memoria 12-04 Lexie 0.1 mL, l 04:51: Route: [place] 00 IVP, Drug form: INJ, Q5Min, PRN Elevated BP, Start date: 12/04/11 23:51:00, Duration: 4 doses or times, Stop date: 12/05/11 4:00:00 NS + KCL 2011- No Rhea 1,000 mL, Mem oria 20mEq/L 12-03 Ana Rate: 100 l 1000ml 04:15: Francisco Javier ml/hr, Pankaj n (Premix) 00 Infuse 1,000 mL over: 10 hr, Route: IV, Dosing Weight 119.091 kg, Total Volume: 1,000, Start date: 12/03/11 23:15:00, Duration: 30 day, Stop date: 01/02/12 23:14:00 Humulin N 2011- No Adan 10 unit, Me moria 7- Lovy 0.1 mL, l 22:30: Route: [place] 00 SUB-Q, Drug form: INJ, ONCE, Start [...] Lovy 0.05 mL, l units/mL 22:19: Route: [place] injectable 00 SUB-Q, solution Drug form: SOLN, Sliding Scale, PRN Blood Glucose Results, Start date: 12/03/11 17:19:00, Duration: 30 day, Stop date: 01/02/12 17:18:00 Humulin R 2011-0 No Adan 4 unit, Mem oria 100 7-26 Lovy 0.04 mL, l units/mL 22:17: Route: [place] injectable 00 SUB-Q, solution Drug form: SOLN, [...] day, Stop date: 01/02/12 17:15:00 Humulin R 2011- No Adan 1 unit, Mem oria 100 - Lovy 0.01 mL, l units/mL 22:15: Route: [place] injectable 00 SUB-Q, solution Drug form: SOLN, [...] Adan 25 mL, Memor ia 50% in - Lovy Route: IV, l Water IV 22:00: Start date: 12/03/11 17:00:00, Duration: 30 day, Stop date: 01/02/12 16:59:00, PRN Blood Glucose Results insulin No Adan 10 unit, Kaz david isophane-[employer] 12-02 Lovy 0.1 mL, l H 17:38: Route: Noel 00 SUB-Q, Drug form: INJ, ONCE, Start date: 12/03/11 12:38:00, Stop date: 12/03/11 12:38:00 methylPREDN No Adan 60 mg, 1.5 Memoria ISolone - Lovy mL, Route: l 00:30: IV, Drug [...] tab, l tablet 14:00: Route: PO, Jessica Drug form: TAB, BID, Start date: 12/02/11 9:00:00, Duration: 30 day, Stop date: 12/31/11 17:00:00 pantoprazol 2011-0 No Adan 40 mg, 1 Memoria e 7-25 Lovy tab, l 14:00: Route: PO, [place] 00 Drug form: ECTAB, Daily, Start date: [...] 7-25 Lovy tab, l 02:00: Route: PO, [place] 00 Drug form: TAB, QPM, Start date: 12/01/11 21:00:00, Duration: 30 day, Stop date: 12/31/11 17:00:00 promethazin 2011-0 No Adan 25 mg, 1 Memoria e 7-25 Lovy tab, l 00:21: Route: PO, [place] 00 Drug form: TAB, Q12H, PRN as needed for nausea/vom iting, Start date: 12/01/11 19:21:00, Duration: 30 day, Stop date: 12/31/11 19:20:00 ALPRAZOLam No Adan 0.5 mg, 1 Memoria 7-25 Lovy tab, l 00:21: Route: PO, Drug form: TAB, Daily, PRN as needed for anxiety, Start date: 12/01/11 19:21:00, Duration: 30 day, Stop date: 12/31/11 19:20:00 Hendrum No Steffi 1 tab, Memoria 10/325 oral 7-25 Randee Route: PO, l tablet 00:20: Judith-Pr Drug Form: [place] 00 ashad TAB, Q6H, PRN as needed for pain, Start date: 12/01/11 19:20:00, Duration: 30 day, Stop date: 12/31/11 19:19:00 temazepam No Adan 15 mg, 1 Me moria 7-25 Lovy cap, l 00:15: Route: PO, Noel 00 Drug form: CAP, Bedtime, PRN Insomnia, Start date: 12/01/11 19:15:00, Duration: 30 day, Stop date: 12/31/11 19:14:00 atorvastati 2011- Yes Adan 10 mg, 1 Memoria n 10 mg 7-24 Lovy tab, PO, l oral tablet 22:26: Daily, 30 H ermann 28 tab, Substituti on Allowed, TAB Hendrum 0 No Steffi 1 tab, PO, Kaz david 10/325 oral 7-24 Randee Q6H, PRN, l tablet 22:26: Judith-Pr 24 tab, He rmann 11 ashad for pain, Substituti on Allowed, Soft Stop pantoprazol No Adan 40 mg, 1 Memoria e 40 mg 7-24 Lovy tab, PO, l oral 22:24: Daily, 30 [place] enteric 40 tab, coated Substituti tablet on [...] tab, PO, l tablet 18:12: BID, 60 [place] 14 tab, 1, 1, Substituti on Allowed, TAB Hendrum 5/325 Yes Yury R 1 tab, PO, [...] 4-20 Anderson 200 mL, l 02:00: Route: IVPB, Drug form: INJ, Q12H, Start date: 08/27/11 21:00:00, Duration: 30 day, Stop date: 09/26/11 9:00:00 Flagyl No Yury R 500 mg, Me moria 4-19 Anderson 100 mL, l 21:00: Route: Noel 00 IVPB, Drug form: INJ, Q8H, Start date: 08/27/11 16:00:00, Duration: 30 day, Stop date: 09/26/11 8:00:00 Lyrica No Yury R 75 mg, 1 M emoria 08-26 Anderson cap, l 14:00: Route: PO, Drug form: CAP, Daily, Start date: 08/27/11 9:00:00, Duration: 30 day, Stop date: 09/25/11 9:00:00 lisinopril No Yury R 10 mg, 2 Memoria 08-26 Anderson tab, l 14:00: Route: PO, Drug form: TAB, BID, Start date: 08/27/11 9:00:00, Duration: 30 day, Stop date: 09/25/11 17:00:00 gabapentin No Yury R 600 mg, 2 Memoria 600 mg oral 08-26 Justin cap, l tablet 14:00: Route: PO, Drug form: CAP, TID, Start date: 08/27/11 9:00:00, Duration: 30 day, Stop date: 09/25/11 17:00:00 Coreg No Yury R 3.125 mg, M emoria 08-26 Justin 1 tab, l 14:00: Route: PO, Drug form: TAB, BID, Start date: 08/27/11 9:00:00, Stop date: 09/25/11 17:00:00 Protonix No Arnaldo R 40 mg, 1 M emoria 08-26 Morrison tab, l 14:00: Route: PO, Drug form: ECTAB, Daily, Start date: 08/27/11 9:00:00, Duration: 30 day, Stop date: 09/25/11 9:00:00 Visipaque Yes Juno 32,000 mg, M emoria 08-26 Abdulaziz 100 mL, l 13:33: Cunningham Route: IVP, Drug form: INJ, ONCE, Start date: 08/27/11 8:33:00, Stop date: 08/27/11 8:33:00 sotalol No Yury R 80 mg, 1 Memoria 08-26 Justin tab, l 02:40: Route: PO, [place] 00 Drug form: TAB, BID, Start date: 08/26/11 [...] 4-19 Anderson cap, l 00:55: Route: PO, Noel 00 Drug form: CAP, Bedtime, PRN Sleep, Start date: 08/26/11 19:55:00, Duration: 30 day, Stop date: 09/25/11 19:54:00 Hendrum 5/325 2011- No Yury R 1 tab, Memoria oral tablet 4-19 Justin Route: PO, l 00:55: Drug Form: Noel 00 TAB, Q4H, PRN Pain, Start date: 08/26/11 19:55:00, Duration: 30 day, Stop date: 09/25/11 19:54:00 insulin 2011- No Yury R 4 unit, M emoria aspart 4-19 Justin 0.04 mL, l 00:38: Route: [place] 00 SUB-Q, Drug form: SOLN, Bedtime, PRN [...] Justin Route: IM, l 00:38: Drug form: [place] 00 PDR/INJ, PRN, PRN Blood Glucose Results, [...] No Yury R 1 gm, Me moria 18 Justin Route: IV, l 23:00: Daily, Start [...] tab, PO, l tablet 22:12: BID, 180 [place] 43 tab, Substituti on Allowed, TAB omeprazole [...] 4-18 Morrison tab, l 22:03: Route: PO, [place] Drug form: TAB, Q4H, PRN Pain, Start date: 08/26/11 17:03:00, Duration: 30 day, Stop date: 09/25/11 17:02:00 Sodium 2011-0 No Arnaldo R 1,000 mL, Me moria Chloride 4-18 Morrison Rate: 70 l 0.9% IV 21:59: ml/hr, [place] 1,000 mL 00 Infuse over: 14.3 hr, Route: IV, Dosing Weight 129.091 kg, Total Volume: 1,000, Start date: 08/26/11 16:59:00, Duration: 30 day, Stop date: 09/25/11 16:58:00 Demadex 2012-0 No Oscar 10 mg, 1 Kaz david 2-28 Nien-Diane tab, l 15:00: Darian Route: PO, [place] 00 Drug form: TAB, Daily, Start date: 07/07/11 9:00:00, Duration: 30 day, Stop date: 08/05/11 9:00:00 Glucophage 2012-0 No Oscar 500 mg, 1 Memoria 2-28 Nien-Diane tab, l 15:00: Darian Route: PO, Noel 00 Drug form: TAB, Daily, Start date: 07/07/11 9:00:00, Duration: 30 day, Stop date: 08/05/11 9:00:00 Xanax 2011-0 No Evaristo J 0.5 mg, 1 Kaz david -28 Hoberman tab, l 03:00: Route: PO, Noel 00 Drug form: TAB, [...] 1.5 tab, l 23:00: Route: PO, Noel 00 Drug form: TAB, Q5PM, Start date: 07/06/11 17:00:00, Duration: 30 day, Stop date: 08/04/11 17:00:00 Bolivar 3-6-9 2011- No Oscar Bolivar Mem oria 1200 mg 2-27 Nien-Diane 3-6-9 [...] 07/06/11 14:44:00, Stop date: 07/06/11 14:44:00 Neurontin 2011-0 No Oscar 600 mg, 2 M emoria 2- Nien-Diane cap, l 19:32: Darian Route: PO, [...] 2-27 Hoberman tab, l 15:00: Route: PO, [place] 00 Drug form: TAB, Q12H, Start date: 07/06/11 9:00:00, Duration: 30 day, Stop date: 08/04/11 21:00:00 DiaBeta 2011-0 No Evaristo J 2.5 mg, 1 Me moria 2-27 Hoberman tab, l 15:00: Route: PO, Drug form: TAB, TID, Start date: 07/06/11 9:00:00, Duration: 30 day, Stop date: 08/04/11 17:00:00 K-Dur 10 2011-0 No Evaristo J 10 mEq, 1 M emoria 07-06 Hoberman tab, l 15:00: Route: PO, Drug form: ERTAB, Daily, Start date: 07/06/11 9:00:00, Duration: 30 day, Stop date: 08/04/11 9:00:00 Zaroxolyn 2011-0 No Evaristo J 5 mg, 2 Me moria 2-27 Hoberman tab, l 15:00: [...] 30 day, Stop date: 08/04/11 18:00:00 Astramorph 2012-0 No Oscar 4 mg, 4 Me moria [...] Route: IV, l 10:41: Darian Drug form: Noel PDR/INJ, PRN, PRN Blood Glucose Results, Start [...] Nien-Diane 0.1 mL, l 10:41: Darian Route: [place] 00 SUB-Q, Drug form: SOLN, Sliding Scale, PRN Blood Glucose Results, Start date: 07/06/11 4:41:00, Duration: 30 day, Stop date: 08/05/11 5:40:00 lactulose No Oscar 20 gm, 30 M emoria 07-06 Nien-Diane mL, Route: l 10:41: Darian PO, Drug [place] 00 form: SYRP, Daily, PRN Constipati on, Start date: 07/06/11 4:41:00, Duration: 30 day, Stop date: 08/05/11 4:40:00 Restoril 2011-0 No Oscar 30 mg, 1 Mem oria 2-27 Nien-Diane cap, l 10:41: Darian Route: PO, Noel Drug form: CAP, Bedtime, PRN Sleep, Start date: 07/06/11 4:41:00, Duration: 30 day, Stop date: 08/05/11 4:40:00 Tylenol 2011- No Oscar 650 mg, 2 Mem oria 2-27 Nien-Diane tab, l 10:40: Darian Route: PO, Noel 00 Drug form: TAB, Q4H, PRN Pain/Fever [...] 07-06 Hoberman Route: l 04:23: IVP, ONCE, Noel 00 Priority: STAT, Start date: 07/05/11 22:23:00, Stop date: 07/05/11 22:23:00 Niaspan ER Yes 500 mg, 1 Me moria 500 mg oral 2-27 tab, PO, l tablet, 04:07: BID, 60 Noel extended 13 tab, release Substituti on Allowed warfarin 3 Yes 3 mg, 1 Kaz david mg oral 2-27 tab, PO, l tablet 04:06: Daily, 30 Pankaj n 14 tab, Substituti on Allowed, TAB ALPRAZOLam 0 Yes 0.5 mg, Kaz david 2-27 PO, PRN, l 04:04: PRN, Noel 58 anxiety, Substituti on Allowed promethazin 0 Yes 25 mg, 1 Me moria e [...] tab, PO, l tablet 04:01: TID, 30 [place] 59 tab, Substituti on Allowed, TAB nitroglycer No Evaristo J 1 inch, Memoria in 2% 07-06 Hoberman Route: l ointment 03:43: TOP, Drug Form: OINT, ONCE, STAT, Start date: 07/05/11 21:43:00, Stop date: 07/05/11 21:43:00 nitroglycer No Evaristo J 0.4 mg, 1 Memoria in 07-06 Hoberman tab, l 03:43: Route: SL, [place] 00 Drug form: TAB, Q5Min, PRN Chest Pain, (Hold if SBP < = 90 mmHg or if < = 100mmHg with symptomati c dizziness) , Start date: 07/05/11 21:43:00, Duration: 3 doses or times, Stop date: Limited # of times aspirin 81 2011-0 No Evaristo J 81 mg, 1 Memoria mg tablet, - Hoberman tab, l chewable 03:43: Route: PO, Her [place] Drug form: CHEWTAB, ONCE, Priority: STAT, Start date: 07/05/11 21:43:00, Stop date: 07/05/11 21:43:00 Saline 0 No Evaristo J 5 ml, Memoria Flush [...] 1 Kaz david - Jagdishcha tab, l 20:58: ndra Catrachito Route: PO, He rm Drug form: TAB, ONCE, Start date: 05/05/11 14:58:00, Stop date: 05/05/11 14:58:00 Coumadin 2010-05 No Yury R 10 mg, 1 Memoria 2- Anderson tab, l 23:00: Route: PO, Drug form: TAB, ONCE, Start date: 05/04/11 17:00:00, Stop date: 05/04/11 17:00:00 Coreg 2010-05 No Kiritkumar 3.125 mg, M emoria 2- A Morrison 1 tab, l 23:00: Route: PO, Drug form: TAB, BID, Start date: 05/04/11 17:00:00, Duration: 30 day, Stop date: 06/03/11 9:00:00 Coumadin 2010-05 No Yury R 10 mg, 1 Memoria 2-25 Anderson tab, l 23:00: Route: PO, Drug form: TAB, ONCE, Start date: 05/03/11 17:00:00, Stop date: 05/03/11 17:00:00 Carafate 2010-05 No Desean 1 gm, 1 Memor ia - Jagdishcha tab, l 23:00: ndra Catrachito [...] l 14:00: Hughes SUB-Q, Drug form: INJ, [id number], Start date: 04/30/11 8:00:00, Duration: 30 day, Stop date: 05/29/11 20:00:00 Zofran 2010-05 No Kiritkumar 2 mg, 1 Me moria 2-21 A Morrison mL, Route: l 20:35: IVP, Drug form: INJ, Q8H, PRN Nausea, Start date: 04/29/11 14:35:00, Duration: 30 day, Stop date: 05/29/11 14:34:00 NovoLog 2010-05 No Yury R 5 unit, M adrianria FlexPen 2-21 Anderson 0.05 mL, l 19:22: Route: SUB-Q, Drug form: SOLN, Sliding Scale, PRN Blood Glucose Results, Start date: 04/29/11 13:22:00, Duration: 30 day, Stop date: 05/29/11 13:21:00 glucagon 2010-05 No Yury R 1 mg, Me moria 06-30 Justin Route: IV, l 19:22: Drug form: [place] 00 PDR/INJ, PRN, PRN Blood Glucose Results, [...] Justin Route: l Flush 19:13: IVP, Drug [place] 00 Form: INJ, PRN, PRN Line Flush, Start date: 04/29/11 13:13:00, Duration: 30 day, Stop date: 05/29/11 13:12:00 Coumadin 2010-05 No Yury R 2.5 mg, 1 Memoria - Justin tab, l 03:00: Route: PO, Noel 00 Drug form: TAB, Bedtime, Start date: 04/28/11 21:00:00, Duration: 30 day, Stop date: 05/27/11 21:00:00 Lovenox 2010-05 No Yury R 80 mg, 0.8 Memoria 06-30 Justin mL, Route: l 02:00: SUB-Q, Noel Drug form: INJ, [id number], Start date: 04/28/11 20:00:00, Duration: 30 day, Stop date: 05/28/11 8:00:00 Protonix 2010-05 No Kiritkumar 40 mg, 1 Memoria 2-20 A Morrison tab, l 22:30: Route: PO, [place] 00 Drug form: ECTAB, Before Dinner, Start [...] A Morrison cap, l 15:00: Route: PO, [place] 00 Drug form: CAP, TID, Start date: 04/28/11 9:00:00, Duration: 30 day, Stop date: 05/27/11 17:00:00 morphine 2010-05 No Yury R 2 mg, 0.4 Memoria Sulfate 2-20 Anderson mL, Route: l 13:31: IV, Drug form: INJ, ONCE, Start date: 04/28/11 7:31:00, Stop date: 04/28/11 7:31:00 morphine 2010-05 No Kiritkumar 2 mg, 0.4 Memoria Sulfate 2-20 A Morrison mL, Route: l 10:44: IV, Drug form: INJ, ONCE, Start date: 04/28/11 4:44:00, Stop date: 04/28/11 4:44:00 Phenergan 2010-05 No Kiritkumar 25 mg, 1 Memoria 2-20 A Morrison tab, l 08:13: Route: PO, [place] 00 Drug form: TAB, Q6H, PRN Nausea, [...] A Morrison mL, Route: l 07:00: SUB-Q, Noel 00 Drug form: INJ, [id number], Start date: 04/28/11 1:00:00, Duration: 30 day, [...] Anderson Route: IV, l 06:35: Drug form: [place] 00 PDR/INJ, PRN, PRN Blood Glucose Results, Start date: 04/28/11 0:35:00, Duration: 30 day, Stop date: 05/28/11 0:34:00 Dextrose 2010-05 No Yury R Route: M emoria 50% in 2-20 Anderson IVP, PRN, l Water IV 06:35: Blood [place] 00 Glucose Results, Start date: 04/28/11 0:35:00, Duration: 30 day, Stop date: 05/28/11 0:34:00 NovoLog 2010-05 No Yury R 10 unit, Memoria FlexPen 2-20 Anderson 0.1 mL, l 06:35: Route: [place] 00 SUB-Q, Drug form: SOLN, Sliding Scale, PRN Blood Glucose Results, Start date: 04/28/11 0:35:00, Duration: 30 day, Stop date: 05/28/11 0:34:00 Avelox 400 2010-05 No Annette 400 mg, 1 Me moria mg oral 0-11 Turcios tab, l tablet 15:36: Blodgett Route: PO, Her [place] 00 Drug form: TAB, [id number], Priority: NOW, Start date: 02/17/11 10:36:00, Duration: 30 day, Stop date: 03/18/11 10:36:00 Avelox 400 2010- Yes Annette 400 mg, 1 Me moria mg oral 0-11 [place] tab, PO, l tablet 15:31: [place] Daily, 7 Jessica nn 58 tab, Substituti on Allowed, TAB Protonix 2010-05 No Annette 40 mg, 1 Memor ia 0-11 [place] tab, l 12:30: Blodgett Route: PO, Jessica nn 00 Drug form: ECTAB, Before Breakfast, Start date: 02/17/11 7:30:00, Duration: 30 day, Stop date: 03/18/11 7:30:00 azithromyci 2010-05 No Annette 500 mg, 2 M emoria n 500 mg 0-11 Turcios tab, l oral tablet 04:00: Blodgett Route: PO, Noel 00 Drug form: TAB, [...] mL, Route: l 02:03: Elvia IM, Drug [place] 00 form: INJ, Q6H, PRN Pain, Start date: 02/16/11 21:03:00, Duration: 30 day, Stop date: 03/18/11 21:02:00 hydrALAZINE 2010-05 No Annette 10 mg, 0.5 Memoria 0-10 [place] mL, Route: l 16:43: [place] IVP, Drug Pankaj n 00 form: INJ, Q4H, PRN Elevated BP, Start date: 02/16/11 11:43:00, Duration: 30 day, Stop date: 03/18/11 11:42:00 Lopressor 2010-05 No Annette 5 mg, 5 Memor ia 0-10 [place] mL, Route: l 16:43: [place] IVP, Drug Pankaj n 00 form: INJ, Q6H, PRN Elevated BP, Start date: 02/16/11 11:43:00, Duration: 30 day, Stop date: 03/18/11 11:42:00 Visipaque 2010-05 No Annette 48,000 mg, Me moria 0-10 [place] 150 mL, l 14:05: Bl[place]gett Route: IV, Jessica nn 00 Drug form: INJ, ONCE, Start date: 02/16/11 9:05:00, Stop date: 02/16/11 9:05:00 potassium 2010-05 No Annette 10 mEq, 1 Mem oria chloride 0-10 Turcios tab, l 14:00: [place]gett Route: PO, Jessica nn 00 Drug form: ERTAB, Daily, Start date: 02/16/11 9:00:00, Duration: 30 day, Stop date: 03/17/11 9:00:00 glyBURIDE 2010-05 No Annette 5 mg, 1 Memor ia 0-10 Turcios tab, l 14:00: Bl[place]gett Route: PO, Jessica nn 00 Drug form: TAB, Daily, Start date: 02/16/11 9:00:00, Duration: 30 day, Stop date: 03/17/11 9:00:00 Lasix 40 mg 2010-05 No Annette 40 mg, 2 Me moria oral tablet 0-10 Turcios tab, l 14:00: [place]gett Route: PO, Jessica nn 00 Drug form: TAB, Daily, Start date: 02/16/11 9:00:00, Duration: 30 day, Stop date: 03/17/11 9:00:00 morphine 2010-05 No Crystal 2 mg, 0.4 M emoria Sulfate 0-10 Rkisten mL, Route: l 04:21: Elvia IVP, Drug Noel 00 form: INJ, Q3H, PRN Pain, Start date: 02/15/11 23:21:00, Duration: 30 day, Stop date: 03/17/11 23:20:00 predniSONE 2010-05 No Annette 50 mg, Memor ia 0-09 Turcios Route: PO, l 22:00: [place] Drug form: Jessica nn 00 TAB, BID, Start date: 02/15/11 17:00:00, Duration: 30 day, Stop date: 03/17/11 9:00:00 gabapentin 2010-05 No Annette 600 mg, 2 Me moria 600 mg oral 0-09 [place] cap, l tablet 18:00: [place]gett Route: PO, Her [place] 00 Drug form: CAP, TID, Start date: 02/15/11 13:00:00, Duration: 30 day, Stop date: 03/17/11 9:00:00 aspirin 81 2010-05 Yes 1 tab, PO, M emoria mg tablet, 0-09 Daily, 0 l enteric 16:58: tabDana[place] coated 50 Substituti on Allowed, ECTAB glyBURIDE 5 2010-05 Yes Annette 1 tab, PO, Memoria mg oral 0-09 [place] Daily, 30 l tablet 16:58: Bl[place]gett tabDanaNoel 30 Substituti on Allowed, TAB doxycycline 2010-05 No 1 cap, PO, Memoria hyclate 100 0-09 BID, cap, l mg oral 16:58: Substituti Herm pinky capsule 11 on Allowed predniSONE 2010-05 Yes Annette 1 tab, PO, M emoria 50 mg oral 0-09 Turcios BID, tab, l tablet 16:57: [place]gett Substituti [place] 48 on Allowed, TAB gabapentin 2010-05 Yes Annette 1 tab, PO, M emoria 600 mg oral 0-09 Turcios TID, 270 l tablet 16:57: [place] Noel pacheco 13 Substituti on Allowed Klor-Con 2010-05 Yes Annette 1 tab, PO, Mem oria M10 oral 0-09 [place] Daily, l tablet, 16:56: [place]gett tabNoel extended 57 Substituti release on Allowed, ERTAB lisinopril 2010-05 Yes 1 tab, PO, M emoria 10 mg oral 0-09 BID, 30 l tablet 16:56: tabNoel 17 Substituti on Allowed, TAB Lasix 40 mg 2010-05 Yes Annette 1 tab, PO, Memoria oral tablet 0-09 [place] Daily, 30 l 16:56: [place]gett tabNoel 00 Substituti on Allowed, TAB Coreg 12.5 2010-05 Yes 1 tab, PO, M emoria mg oral 0-09 BID, 60 l tablet 16:55: tabDana[place] 44 Substituti on Allowed, TAB Zofran ODT 2010-05 Yes 4 mg, 1 Kaz david 4 mg oral 0-09 tab, PO, l tablet, 16:55: Q8H, PRN, Jessica nn disintegrat 22 as needed ing for nausea/vom iting, Substituti on Allowed, TAB Xanax 0.5 2010-05 Yes 1 tab, PO, Me moria mg oral 0-09 Daily, l tablet 16:54: PRN, 30 [place] 59 tab, Anxiety, Substituti on Allowed cefepime 2010-05 No Annette 1 gm, Memoria 0 Turcios Route: l 16:00: Sterling PRITCHARDPB, [place] 00 [id number], Start date: 02/15/11 11:00:00, Duration: 30 day, Stop date: 03/16/11 23:00:00 pantoprazol 2010-05 No Crystal 40 mg, M emoria e 0 Kristen Route: l 14:00: Elvia IVP, Drug [place] 00 form: INJ, Daily, Start date: 02/15/11 [...] 0-09 Morrison tab, l 14:00: Route: PO, Noel 00 Drug form: TAB, [...] Mem oria 0-09 [place] cap, l 04:40: [place] Route: PO, Jessica nn 00 Drug form: CAP, Q8H, Start date: 02/14/11 23:40:00, Duration: 30 day, Stop date: 03/16/11 16:00:00 ceftriaxone 2010-05 No Arnaldo R 1 gm, M emoria 0 Morrison Route: l 04:00: Noel ARMSTRONG 00 [id number], Start date: 02/14/11 23:00:00, Duration: 30 day, Stop date: 03/15/11 23:00:00 azithromyci 2010-05 No Crystal 500 mg, Memoria n 0-09 Kristen Route: l 04:00: Elvia PRITCHARDPBDanaNoel 00 [id number], Start date: 02/14/11 23:00:00, Duration: 30 day, [...] 0.1 mL, l Sliding 03:08: Elvia Route: [place] Scale - Low 00 SUB-Q, Drug form: [...] ml, Route: l 03:08: Elvia IVP, Drug [place] 00 Form: INJ, PRN, PRN Blood Glucose [...] 0-09 Mendez tab, l 03:04: Route: PO, [place] 00 Drug form: TAB, Q12H, Priority: NOW, Start date: 02/14/11 22:04:00, Stop date: 03/16/11 21:00:00 Saline 2010-05 No Crystal 5 ml, Memoria Flush 0.9% 0-09 Kristen Route: l 02:35: Elvia IVP, Drug [place] 00 Form: INJ, PRN, PRN Line Flush, Start date: 02/14/11 21:35:00, Duration: 30 day, Stop date: 03/16/11 20:34:00 nitroglycer 2010-05 No Crystal 0.4 mg, 1 Memoria in SL Tab 0-09 Kristen tab, l 02:35: Elvia Route: SL, Pankaj n 00 Drug form: TAB, Q5Min, PRN Chest [...] Forbes mL, Route: l 00:31: IVP, Drug Noel 00 form: INJ, ONCE, Priority: STAT, Start date: 02/14/11 19:31:00, Stop date: 02/14/11 19:31:00 morphine 2010- No Abdon G 4 mg, 1 Mem oria Sulfate 0-09 Forbes mL, Route: l 00:30: IVP, Drug [place] 00 form: INJ, ONCE, Priority: STAT, Start date: 02/14/11 19:30:00, Stop date: 02/14/11 19:30:00 Saline 2010- No Abdon G 5 ml, Memoria Flush 0.9% 0-08 Forbes Route: l 23:21: IVP, Drug [place] 00 Form: INJ, PRN, PRN Line Flush, Start date: 02/14/11 18:21:00, Duration: 30 day, Stop date: 03/16/11 17:20:00 Vital Signs Vital Name Observation Time Observation Value Comments Source Respitory Rate 2018-12-01 20:24:00 Memori al [place] Systolic (mm Hg) 2018-12-01 20:24:00 Kaz rial Noel Diastolic (mm Hg) 2018-12-01 20:24:00 Mem orial [place] Temperature Oral (F) 2018-12-01 20:24:00 98.5 F [facility] Noel Heart Rate 2018-12-01 20:24:00 [facility] Noel Systolic (mm Hg) 2018-12-01 16:14:00 Kaz rial [place] Diastolic (mm Hg) 2018-12-01 16:14:00 Mem orial [place] Heart Rate 2018-12-01 16:14:00 [facility] [place] Respitory Rate 2018-12-01 16:14:00 Memori al [place] Temperature Oral (F) 2018-12-01 16:14:00 98.1 F [facility] Noel Systolic (mm Hg) 2018-12-01 13:27:00 Kaz rial Noel Diastolic (mm Hg) 2018-12-01 13:27:00 Mem orial [place] Respitory Rate 2018-12-01 12:23:00 Memori al [place] Heart Rate 2018-12-01 12:23:00 [facility] [place] Height 2018-12-01 09:32:00 193.04 cm [facility] Noel BMI Calculated 2018-11-30 04:11:00 Memori al Noel Weight 2018-11-30 04:11:00 [facility] [place] Height 2018-11-30 04:11:00 193.04 cm [facility] [place] Systolic (mm Hg) 2018-03-29 17:39:00 Kaz rial [place] Diastolic (mm Hg) 2018-03-29 17:39:00 Mem orial Noel Respitory Rate 2018-03-29 17:39:00 Memori al Noel Heart Rate 2018-03-29 17:39:00 [facility] [place] Temperature Oral (F) 2018-03-29 17:39:00 97.5 F [facility] [place] Heart Rate 2018-03-29 13:52:00 [facility] Noel Respitory Rate 2018-03-29 13:52:00 Memori al Noel Systolic (mm Hg) 2018-03-29 13:52:00 Kaz rial Noel Diastolic (mm Hg) 2018-03-29 13:52:00 Mem orial [place] Temperature Oral (F) 2018-03-29 13:52:00 98.4 F [facility] Noel Weight 2018-03-29 12:08:00 [facility] Noel Systolic (mm Hg) 2018-03-29 09:30:00 Kaz rial [place] Diastolic (mm Hg) 2018-03-29 09:30:00 Mem orial [place] Heart Rate 2018-03-29 09:30:00 [facility] Noel Temperature Oral (F) 2018-03-29 09:30:00 98.3 F [facility] [place] Respitory Rate 2018-03-29 06:00:00 Mem[facility] al [place] BMI Calculated 2018-03-25 21:42:00 Memori al Noel Weight 2018-03-25 21:42:00 [facility] No[place] Height 2018-03-25 21:42:00 193.04 cm [facility] [place] Temperature Oral (F) 2017-04-11 13:01:00 97.9 F [facility] Noel Systolic (mm Hg) 2017-04-11 13:01:00 Kaz rial [place] Diastolic (mm Hg) 2017-04-11 13:01:00 Mem orial [place] Respitory Rate 2017-04-11 13:01:00 Memori al Noel Heart Rate 2017-04-11 13:01:00 [facility] [place] Temperature Oral (F) 2017-04-11 10:00:00 98.2 F [facility] Heart Rate 2017-04-11 10:00:00 [facility] Systolic (mm Hg) 2017-04-11 10:00:00 [facility] Diastolic (mm Hg) 2017-04-11 10:00:00 [facility] Respitory Rate 2017-04-11 10:00:00 [facility] Systolic (mm Hg) 2017-04-11 06:00:00 [facility] Diastolic (mm Hg) 2017-04-11 06:00:00 [facility] [place] Heart Rate 2017-04-11 06:00:00 [facility] [place] Respitory Rate 2017-04-11 06:00:00 [facility] Temperature Oral (F) 2017-04-11 06:00:00 98.2 F [facility] Height 2017-04-08 21:30:00 193.04 cm [facility] Weight 2017-04-08 21:30:00 [facility] BMI Calculated 2017-04-08 21:30:00 [facility] [place] Temperature Oral (F) 2017-03-23 22:16:00 98.4 F [facility] Heart Rate 2017-03-23 22:16:00 [facility] Respitory Rate 2017-03-23 22:16:00 [facility] [place] Systolic (mm Hg) 2017-03-23 22:16:00 [facility] [place] Diastolic (mm Hg) 2017-03-23 22:16:00 [facility] Systolic (mm Hg) 2017-03-23 17:38:00 [facility] Diastolic (mm Hg) 2017-03-23 17:38:00 [facility] Temperature Oral (F) 2017-03-23 17:38:00 98.2 F [facility] Heart Rate 2017-03-23 17:38:00 [facility] Respitory Rate 2017-03-23 17:38:00 [facility] [place] Heart Rate 2017-03-23 13:43:00 [facility] Systolic (mm Hg) 2017-03-23 13:43:00 [facility] Diastolic (mm Hg) 2017-03-23 13:43:00 [facility] Respitory Rate 2017-03-23 13:43:00 [facility] Temperature Oral (F) 2017-03-23 13:43:00 98.4 F [facility] BMI Calculated 2017-03-16 22:19:00 [facility] [place] Weight 2017-03-16 22:19:00 [facility] [place] Height 2017-03-16 22:19:00 193.04 cm [facility] Weight 2017-03-16 18:16:00 [facility] BMI Calculated 2017-03-16 18:16:00 [facility] Height 2017-03-16 18:16:00 193.04 cm [facility] Temperature Oral (F) 2016-03-11 18:06:00 97.9 F [facility] Systolic (mm Hg) 2016-03-11 18:06:00 [facility] Diastolic (mm Hg) 2016-03-11 18:06:00 [facility] [place] Heart Rate 2016-03-11 18:06:00 [facility] Respitory Rate 2016-03-11 18:06:00 [facility] [place] Systolic (mm Hg) 2016-03-11 12:58:00 [facility] Diastolic (mm Hg) 2016-03-11 12:58:00 [facility] [place] Respitory Rate 2016-03-11 12:58:00 [facility] Temperature Oral (F) 2016-03-11 12:58:00 98.1 F [facility] Heart Rate 2016-03-11 12:58:00 [facility] Heart Rate 2016-03-11 09:18:00 [facility] [place] Temperature Oral (F) 2016-03-11 09:18:00 97.8 F [facility] Respitory Rate 2016-03-11 09:18:00 [facility] [place] Systolic (mm Hg) 2016-03-11 09:18:00 [facility] [facility] [place] Diastolic (mm Hg) 2016-03-11 09:18:00 [facility] [place] BMI Calculated 2016-03-09 19:03:00 [facility] [place] Weight 2016-03-09 19:03:00 [facility] Height 2016-03-09 19:03:00 193.04 cm [facility] Respitory Rate 2016-01-18 13:00:00 [facility] [place] Heart Rate 2016-01-18 13:00:00 [facility] Temperature Oral (F) 2016-01-18 13:00:00 98.7 F [facility] [place] Systolic (mm Hg) 2016-01-18 09:06:00 [facility] [place] Diastolic (mm Hg) 2016-01-18 09:06:00 [facility] Temperature Oral (F) 2016-01-18 09:06:00 98.2 F [facility] [place] Heart Rate 2016-01-18 09:06:00 [facility] Respitory Rate 2016-01-18 09:06:00 [facility] Systolic (mm Hg) 2016-01-18 03:54:00 [facility] [place] Diastolic (mm Hg) 2016-01-18 03:54:00 [facility] [place] Temperature Oral (F) 2016-01-18 03:54:00 98.1 F [facility] Heart Rate 2016-01-18 03:54:00 [facility] Respitory Rate 2016-01-18 03:54:00 [facility] Weight 2016-01-18 01:05:00 [facility] [place] BMI Calculated 2016-01-18 01:05:00 [facility] Height 2016-01-18 01:05:00 193.04 cm [facility] Diastolic (mm Hg) 2016-01-18 00:55:00 [facility] [place] Systolic (mm Hg) 2016-01-18 00:55:00 [facility] Weight 2016-01-17 21:23:00 [facility] [place] Heart Rate 2015-05-28 23:23:00 [facility] Temperature Oral (F) 2015-05-28 23:23:00 97.9 F [facility] Respitory Rate 2015-05-28 23:23:00 [facility] [place] Systolic (mm Hg) 2015-05-28 23:23:00 [facility] Diastolic (mm Hg) 2015-05-28 23:23:00 [facility] Weight 2015-05-28 21:05:00 [facility] [place] Temperature Oral (F) 2015-05-28 21:05:00 97.8 F [facility] [place] Respitory Rate 2015-05-28 21:05:00 [facility] [place] Heart Rate 2015-05-28 21:05:00 [facility] [place] Systolic (mm Hg) 2015-05-28 21:05:00 [facility] [place] Diastolic (mm Hg) 2015-05-28 21:05:00 [facility] [place] Systolic (mm Hg) 2015-04-24 17:04:00 [facility] [place] Diastolic (mm Hg) 2015-04-24 17:04:00 [facility] [place] Respitory Rate 2015-04-24 17:04:00 [facility] [place] Temperature Oral (F) 2015-04-24 17:04:00 97.7 F [facility] [place] Heart Rate 2015-04-24 17:04:00 [facility] [place] Systolic (mm Hg) 2015-04-24 14:20:00 [facility] [place] Diastolic (mm Hg) 2015-04-24 14:20:00 [facility] [place] Respitory Rate 2015-04-24 14:20:00 [facility] [place] Temperature Oral (F) 2015-04-24 14:20:00 97.2 F [facility] Heart Rate 2015-04-24 14:20:00 [facility] Systolic (mm Hg) 2015-04-24 12:24:00 [facility] Diastolic (mm Hg) 2015-04-24 12:24:00 [facility] Respitory Rate 2015-04-24 12:24:00 [facility] Heart Rate 2015-04-24 12:24:00 [facility] Temperature Oral (F) 2015-04-24 00:30:00 97.7 F [facility] [place] Weight 2015-04-21 07:11:00 [facility] [place] Height 2015-04-21 07:11:00 187.96 cm [facility] [place] BMI Calculated 2015-04-21 07:11:00 [facility] [place] Temperature Oral (F) 2015-02-03 00:13:00 98 F [facility] [place] Heart Rate 2015-02-03 00:13:00 [facility] Systolic (mm Hg) 2015-02-03 00:13:00 [facility] Diastolic (mm Hg) 2015-02-03 00:13:00 [facility] [place] Respitory Rate 2015-02-03 00:13:00 [facility] [place] Height 2015-02-02 20:33:00 172.72 cm [facility] Weight 2015-02-02 20:33:00 [facility] BMI Calculated 2015-02-02 20:33:00 [facility] Respitory Rate 2015-02-02 20:33:00 [facility] [place] Temperature Oral (F) 2015-02-02 20:33:00 98.2 F [facility] [place] Heart Rate 2015-02-02 20:33:00 [facility] [place] Systolic (mm Hg) 2015-02-02 20:33:00 [facility] [place] Diastolic (mm Hg) 2015-02-02 20:33:00 [facility] [place] Heart Rate 2014-07-07 04:20:00 [facility] Respitory Rate 2014-07-07 04:20:00 [facility] Temperature Oral (F) 2014-07-07 04:20:00 98.3 F [facility] Heart Rate 2014-07-07 03:38:00 [facility] [place] Respitory Rate 2014-07-07 03:38:00 [facility] [place] Systolic (mm Hg) 2014-07-07 03:38:00 [facility] Diastolic (mm Hg) 2014-07-07 03:38:00 [facility] Systolic (mm Hg) 2014-07-07 02:16:00 [facility] Diastolic (mm Hg) 2014-07-07 02:16:00 [facility] Respitory Rate 2014-07-07 02:16:00 [facility] [place] Heart Rate 2014-07-07 02:16:00 [facility] [place] Systolic (mm Hg) 2014-07-07 00:30:00 [facility] Diastolic (mm Hg) 2014-07-07 00:30:00 [facility] Temperature Oral (F) 2014-07-07 00:30:00 98.1 F [facility] [place] Height 2014-07-07 00:30:00 193.04 cm [facility] BMI Calculated 2014-07-07 00:30:00 [facility] Weight 2014-07-07 00:30:00 [facility] [place] Diastolic (mm Hg) 2014-04-02 17:45:00 [facility] Systolic (mm Hg) 2014-04-02 17:45:00 [facility] [place] Respitory Rate 2014-04-02 17:45:00 [facility] Diastolic (mm Hg) 2014-04-02 17:30:00 [facility] [place] Respitory Rate 2014-04-02 17:30:00 [facility] Systolic (mm Hg) 2014-04-02 17:30:00 [facility] [place] Diastolic (mm Hg) 2014-04-02 17:15:00 [facility] [place] Systolic (mm Hg) 2014-04-02 17:15:00 [facility] [place] Respitory Rate 2014-04-02 17:15:00 [facility] Temperature Oral (F) 2014-04-02 15:15:00 97.9 F [facility] Temperature Oral (F) 2014-04-02 13:00:00 97.7 F [facility] [place] Height 2014-03-30 16:58:00 193.04 cm [facility] BMI Calculated 2014-03-30 16:58:00 [facility] Weight 2014-03-30 16:58:00 [facility] [place] Temperature Oral (F) 2014-03-30 16:58:00 98.2 F [facility] Heart Rate 2014-03-30 16:58:00 [facility] [place] Respitory Rate 2014-03-06 00:15:00 [facility] Heart Rate 2014-03-06 00:15:00 [facility] [place] Temperature Oral (F) 2014-03-06 00:15:00 98.1 F [facility] Systolic (mm Hg) 2014-03-06 00:15:00 [facility] Diastolic (mm Hg) 2014-03-06 00:15:00 [facility] Systolic (mm Hg) 2014-03-05 20:12:00 [facility] [place] Temperature Oral (F) 2014-03-05 20:12:00 98.1 F [facility] Heart Rate 2014-03-05 20:12:00 [facility] [place] Respitory Rate 2014-03-05 20:12:00 [facility] Diastolic (mm Hg) 2014-03-05 20:12:00 [facility] Respitory Rate 2014-03-05 16:21:00 [facility] [place] Diastolic (mm Hg) 2014-03-05 16:21:00 [facility] [place] Systolic (mm Hg) 2014-03-05 16:21:00 [facility] [place] Heart Rate 2014-03-05 16:21:00 [facility] Temperature Oral (F) 2014-03-05 16:21:00 98.1 F [facility] [place] Weight 2014-02-27 10:20:00 [facility] Weight 2014-02-26 07:14:00 [facility] BMI Calculated 2014-02-26 07:14:00 [facility] [place] Height 2014-02-26 07:14:00 193.04 cm [facility] Height 2014-02-25 23:21:00 193.04 cm [facility] Weight 2014-02-25 23:21:00 [facility] [place] BMI Calculated 2014-02-25 23:21:00 [facility] Temperature Oral (F) 2014-01-28 17:04:00 99 F [facility] [place] Heart Rate 2014-01-28 17:04:00 [facility] Respitory Rate 2014-01-28 17:04:00 [facility] Diastolic (mm Hg) 2014-01-28 17:04:00 [facility] [place] Systolic (mm Hg) 2014-01-28 17:04:00 [facility] Temperature Oral (F) 2014-01-28 13:02:00 98.8 F [facility] [place] Heart Rate 2014-01-28 13:02:00 [facility] Respitory Rate 2014-01-28 13:02:00 [facility] Systolic (mm Hg) 2014-01-28 13:02:00 [facility] [place] Diastolic (mm Hg) 2014-01-28 13:02:00 [facility] Weight 2014-01-28 10:00:00 [facility] [place] Systolic (mm Hg) 2014-01-28 09:00:00 [facility] [place] Diastolic (mm Hg) 2014-01-28 09:00:00 [facility] [place] Temperature Oral (F) 2014-01-28 09:00:00 98.5 F [facility] [place] Heart Rate 2014-01-28 09:00:00 [facility] Respitory Rate 2014-01-28 09:00:00 [facility] BMI Calculated 2014-01-26 09:56:00 [facility] [place] Height 2014-01-26 09:56:00 193.04 cm [facility] [place] Weight 2014-01-26 09:56:00 [facility] Height 2012-07-20 20:49:00 193.04 cm [facility] Weight 2012-07-20 20:49:00 [facility] [place] Systolic (mm Hg) 2012-02-28 02:30:00 [facility] [place] Heart Rate 2012-02-28 02:30:00 [facility] Respitory Rate 2012-02-28 02:30:00 [facility] Diastolic (mm Hg) 2012-02-28 02:30:00 [facility] [place] Temperature Oral (F) 2012-02-28 02:30:00 98.7 F [facility] Diastolic (mm Hg) 2012-02-27 21:00:00 [facility] Respitory Rate 2012-02-27 21:00:00 [facility] [place] Systolic (mm Hg) 2012-02-27 21:00:00 [facility] [place] Temperature Oral (F) 2012-02-27 21:00:00 98.3 F [facility] [place] Heart Rate 2012-02-27 21:00:00 [facility] Diastolic (mm Hg) 2012-02-27 17:00:00 [facility] [place] Systolic (mm Hg) 2012-02-27 17:00:00 [facility] [place] Respitory Rate 2012-02-27 17:00:00 [facility] Temperature Oral (F) 2012-02-27 17:00:00 97.5 F [facility] Heart Rate 2012-02-27 17:00:00 [facility] [place] Height 2012-02-26 05:58:00 193.04 cm [facility] Weight 2012-02-26 05:58:00 [facility] [place] Weight 2012-02-26 05:13:00 [facility] [place] Height 2012-02-26 05:13:00 193.04 cm [facility] Respitory Rate 2011-12-08 16:20:00 [facility] Diastolic (mm Hg) 2011-12-08 16:20:00 [facility] [place] Systolic (mm Hg) 2011-12-08 16:20:00 [facility] [place] Temperature Oral (F) 2011-12-08 16:20:00 98.9 F [facility] [place] Heart Rate 2011-12-08 16:20:00 [facility] [place] Temperature Oral (F) 2011-12-08 13:00:00 99.2 F [facility] Heart Rate 2011-12-08 13:00:00 [facility] [place] Systolic (mm Hg) 2011-12-08 13:00:00 [facility] Respitory Rate 2011-12-08 13:00:00 [facility] Diastolic (mm Hg) 2011-12-08 13:00:00 [facility] [place] Diastolic (mm Hg) 2011-12-08 10:13:00 [facility] Systolic (mm Hg) 2011-12-08 10:13:00 [facility] [place] Respitory Rate 2011-12-08 10:13:00 [facility] [place] Heart Rate 2011-12-08 10:13:00 [facility] Temperature Oral (F) 2011-12-08 10:13:00 97.9 F [facility] Height 2011-12-03 19:23:00 193.04 cm [facility] [place] Weight 2011-12-03 19:23:00 [facility] [place] Weight 2011-12-01 22:46:00 [facility] [place] Height 2011-12-01 22:46:00 193.04 cm [facility] Weight 2011-12-01 22:06:00 [facility] Height 2011-12-01 22:06:00 193.04 cm [facility] Respitory Rate 2011-08-28 12:00:00 [facility] Heart Rate 2011-08-28 12:00:00 [facility] Diastolic (mm Hg) 2011-08-28 12:00:00 [facility] [place] Systolic (mm Hg) 2011-08-28 12:00:00 [facility] [place] Temperature Oral (F) 2011-08-28 12:00:00 97.7 F [facility] [place] Diastolic (mm Hg) 2011-08-28 04:00:00 [facility] Systolic (mm Hg) 2011-08-28 04:00:00 [facility] Heart Rate 2011-08-28 04:00:00 [facility] [place] Respitory Rate 2011-08-28 04:00:00 [facility] [place] Temperature Oral (F) 2011-08-28 04:00:00 97.9 F [facility] [place] Diastolic (mm Hg) 2011-08-27 20:52:00 [facility] [place] Systolic (mm Hg) 2011-08-27 20:52:00 [facility] Respitory Rate 2011-08-27 20:52:00 [facility] [place] Heart Rate 2011-08-27 20:52:00 [facility] Temperature Oral (F) 2011-08-27 20:52:00 98.1 F [facility] [place] Weight 2011-08-26 21:30:00 [facility] Height 2011-08-26 21:30:00 193.04 cm [facility] [place] Respitory Rate 2011-07-07 14:00:00 [facility] Diastolic (mm Hg) 2011-07-07 14:00:00 [facility] Heart Rate 2011-07-07 14:00:00 [facility] [place] Systolic (mm Hg) 2011-07-07 14:00:00 [facility] Temperature Oral (F) 2011-07-07 14:00:00 98.4 F [facility] Diastolic (mm Hg) 2011-07-07 10:00:00 [facility] [place] Systolic (mm Hg) 2011-07-07 10:00:00 [facility] Respitory Rate 2011-07-07 10:00:00 [facility] [place] Temperature Oral (F) 2011-07-07 10:00:00 97.3 F [facility] [place] Heart Rate 2011-07-07 10:00:00 [facility] [place] Temperature Oral (F) 2011-07-07 06:00:00 97.8 F [facility] Weight 2011-07-06 09:52:00 [facility] Weight 2011-07-06 08:45:00 [facility] [place] Height 2011-07-06 08:45:00 193.04 cm [facility] Systolic (mm Hg) 2011-05-05 18:00:00 [facility] Respitory Rate 2011-05-05 18:00:00 [facility] [place] Diastolic (mm Hg) 2011-05-05 18:00:00 [facility] Heart Rate 2011-05-05 18:00:00 [facility] Temperature Oral (F) 2011-05-05 18:00:00 98.6 F [facility] [place] Heart Rate 2011-05-05 14:00:00 [facility] [place] Diastolic (mm Hg) 2011-05-05 14:00:00 [facility] [place] Systolic (mm Hg) 2011-05-05 14:00:00 [facility] Respitory Rate 2011-05-05 14:00:00 [facility] [place] Temperature Oral (F) 2011-05-05 14:00:00 98.0 F [facility] Temperature Oral (F) 2011-05-05 10:00:00 98.6 F [facility] [place] Systolic (mm Hg) 2011-05-05 10:00:00 [facility] [place] Diastolic (mm Hg) 2011-05-05 10:00:00 [facility] [place] Respitory Rate 2011-05-05 10:00:00 [facility] Heart Rate 2011-05-05 10:00:00 [facility] [place] Weight 2011-05-02 11:34:00 [facility] Weight 2011-04-28 06:28:00 [facility] Height 2011-04-28 06:28:00 193.04 cm [facility] Respitory Rate 2011-02-17 19:45:00 [facility] [place] Heart Rate 2011-02-17 19:45:00 [facility] [place] Temperature Oral (F) 2011-02-17 19:45:00 97.8 F [facility] Systolic (mm Hg) 2011-02-17 19:45:00 [facility] [place] Diastolic (mm Hg) 2011-02-17 19:45:00 [facility] [place] Diastolic (mm Hg) 2011-02-17 15:30:00 [facility] Temperature Oral (F) 2011-02-17 15:30:00 97.7 F [facility] [place] Systolic (mm Hg) 2011-02-17 15:30:00 [facility] [place] Respitory Rate 2011-02-17 15:30:00 [facility] [place] Heart Rate 2011-02-17 15:30:00 [facility] Diastolic (mm Hg) 2011-02-17 12:13:00 [facility] Respitory Rate 2011-02-17 12:13:00 [facility] [place] Systolic (mm Hg) 2011-02-17 12:13:00 [facility] Temperature Oral (F) 2011-02-17 12:13:00 98.5 F [facility] Heart Rate 2011-02-17 12:13:00 [facility] Weight 2011-02-15 02:25:00 [facility] Height 2011-02-15 02:25:00 193.04 cm [facility] [place] Weight 2011-02-14 23:10:00 [facility] Height 2011-02-14 23:10:00 193.04 cm [facility] [place] Procedures Procedure Date / Time Performed Performing Clinician [facility] e Fluoroscopic angiography Waleska Cohen of coronary artery and insertion of stent Fusion of lumbar spine [facility] IVC - Insertion of [facility] pinky inferior vena caval filter Pacemaker [facility] care<sup>1</sup> Percutaneous transluminal Andrews Harrell balloon angioplasty of aorta with stent placement for coarctation of aorta [facility]<sup>[facility]</sup> [facility]C - [facility] inferior vena caval filter Procedure on back [facility] nn <sup>1</sup> Plan of Care Planned Activity Planned Date Details Comments Source Future Scheduled 2019-12-09 INFLUENZA VACCINE [place] [facility] [employer] [facility] 00:00:00 [code = INFLUENZA VACCINE] Future Scheduled 2000 65+ PNEUMOCOCCAL [place] [employer] [facility] 00:00:00 VACCINE (1 of 1 - PPSV23) [code = 65+ PNEUMOCOCCAL VACCINE (1 of 1 - PPSV23)] Future Scheduled 1985 SHINGLES VACCINES (#1) [place] [employer] [facility] 00:00:00 [code = SHINGLES VACCINES (#1)] Future Scheduled 1951 COVID-19 VACCINE (1 of [place] [employer] [facility] 00:00:00 2) [code = COVID-19 VACCINE (1 of 2)] Encounters Start End Encounter Admission Attending Care Care Encounter Source Date/Time Date/Time Type Type Clinicians Facility Department ID 2018-11-29 Inpatient [facility] [id number] [id number] 22:21:00 2018-11-29 2018-12-01 Outpatient Maryann [facility] [id number] 22:21:00 17:00:00 Cecy Knight Juanita 2018-04-19 2018-04-19 Outpatient [facility], 29 29 [id number] 08:00:00 08:00:00 Arnaldo Clement Ginger 2018-03-25 2018-03-29 Outpatient Morrison, [facility] [id number] 15:02:00 16:28:00 Kavita 20 A 2017-04-10 2017-04-11 [facility] [id number] 14:03:00 15:23:00 Kavita 34 A 2017-03-16 2017-03-[address] [facility] [id number] 12:02:00 18:17:00 Kavita 18 A 2016-03-09 2016-03-11 Outpatient Prince, [facility] [id number] 12:18:00 16:44:00 Kavita 05 A 2016-01-17 2016-01-18 Outpatient Alexus, [facility] [id number] 16:15:00 12:05:00 Alverto 17 2015-05-28 2015-05-[address] [facility] [id number] 14:59:00 17:26:00 Abel 15 2015-04-21 2015-04-24 Outpatient Justin, [facility] [id number] 00:14:00 17:10:00 Mike Patel 46 2015-02-02 2015-02-02 Outpatient Jess, [facility] [id number] 15:30:00 19:16:00 Pop Soto 14 2014-07-06 2014-07-06 Outpatient Forbes, [facility] [id number] 18:18:00 22:22:00 Abdon Mas 13 2014-04-02 2014-04-02 Outpatient Kriss, [facility] [id number] 06:14:00 11:55:00 Terry 12 Chaitanya 2014-02-25 2014-03-05 Outpatient Bari Cox [facility] [id number] 18:17:00 20:10:00 Lesly 11 2014-01-26 2014-01-28 Outpatient Bari Cox [facility] [id number] 06:24:00 17:14:00 Lesly 62 Results Test Description [...] code = MCH) 30.5 pg 27.0-31.0 [facility] TmlsdkuKKPHYUCGJA4252-75-92 10:20:004.2[facility]ann[facility]MATOLOGY 2018-12-01 10:20:0010.8[facility] SnjamffHKJOWORQJO2461-44-41 10:20:0016.8[facility] OqxeqhuKLYRRBTTNC9510-43-63 10:20:0077[facility] MtgqkcyRNSSXZIUQB0669-94-02 10:20:008.3[facility] WprmpahDBVASSSCTT1274-75-72 10:20:0032.3[facility] CARDIAC YTLHTAG5613-68-03 10:43:000.18[facility] HermannCARDIAC SSEATDR4501-55-10 07:05:000.21[facility] HermannCARDIAC SGQDIIZ2440-56-50 07:05:86732Ehfdyyuw HermannCHEM QNWIR5405-69-03 07:05:002.5[facility] HermannCHEM QIDCZ4700-66-88 07:05:002.0[facility] HermannCHEM ARVTZ7563-21-84 07:05:0035[facility] HermannCHEM GTMLO0451-94-70 07:05:0068[facility] HermannCHEM RCKLQ4229-34-90 07:05:000.6 [facility]annCHE[facility] PQHIC9914-06-62 07:05:0013[facility]annCHEM PANEL 2018-11-30 07:05:003.9[facility]annCHEM VAPNB6227-77-08 07:05:0027[facility] HermannCHEM BKGTN4316-10-24 07:05:008.2[facility] HermannCHEM CIQDJ5909-54-16 07:05:59905Kphfdwug HermannCHEM HFANZ2639-92-91 07:05:007.8[facility] HermannCHEM YRSTL1363-04-61 07:05:76440Ddjrjbxy HermannCHEM YDXSP1023-52-58 07:05:002.00 [facility]annCHEM FRVFN8844-72-34 07:05:003.1[facility] HermannCHEM PANEL 2018-11-30 07:05:30506Ecopxzrv HermannCHEM WRNSO1389-75-83 07:05:0030[facility] HermannCHEM KGIXQ2532-01-51 07:05:0014[facility] HermannCHEM ETFQZ9294-71-31 07:05:00 Test Item Value Reference Range Interpretation Comments A/G Ratio (test code = A/G Ratio) 0.7 1 0.7-1.6 [facility]annCHEM DRVMO9843-14-93 07:05:004.7[facility] HermannCHEM PANEL 2018-11-30 07:05:009.9[facility] HermannCHEM [id number] 07:05:00 Test Item Value Reference Range Interpretation Comments B/C Ratio (test code = B/C Ratio) 15 1 6-25 [facility] TimqqslKGWGYVTZIK3095-65-46 07:05:0032.1[facility] HermannHEMATOLOGY 2018-11-30 07:05:0017.8[facility] MparswoLLGHILFTUO7568-55-21 07:05:00 Test Item Value Reference Range Interpretation Comments MCH (test code = MCH) 30.7 pg 27.0-31.0 [facility] LkdzfgdEFMKOXCXTJ7872-86-46 07:05:003.46[facility] HermannHEMATOLOGY 2018-11-30 07:05:004.9[facility] LeohxhaLOCMTAZCKT8377-83-46 07:05:008.2[facility] ScvrsgqMMRUUQNFYG3621-78-37 07:05:0091[facility] CxkuahaLXZGUCKBTD6016-19-29 07:05:0095.7[facility] TutnmdoNSQJXRJCXW9201-69-90 07:05:0010.6[facility] [place] JMIIFHOEWO0900-24-69 07:05:0033.1[facility] QdpkltnTIBENAZZDM6038-98-89 07:05:00 3.0[facility] LwfusukSOYKJEXSQU0036-19-41 07:05:001.5[facility] HermannHEMATOLOGY 2018-11-30 07:05:000.2[facility] GzdiffhTQQCGNTPXM7881-70-02 07:05:000.2[facility] GgbvlybRMOAYZCJJL2548-85-90 07:05:000.0[facility] SsaopvtGNXKZLTQHX8008-94-83 07:05:0061.3[facility] MybjfecFCTIGXUFHW1431-45-99 07:05:0029.5[facility] DPGOFEYSKD4051-66-58 07:05:004.4[facility] YktarkiZOMFFCXDIJ6117-57-72 07:05:000.5 [facility] VjljwmeKLADSWIZET5834-86-12 07:05:004.3[facility] PgamdmuQXSMXJ7117-29-82 07:05:00 Test Item Value Reference Range Interpretation Comments CHD Risk (test code = CHD Risk) 1.75 1 4.00-7.30 [facility] VtzriaaAXLEFY1507-24-41 07:05:00 Test Item Value Reference Range Interpretation Comments VLDL (test code = VLDL) 14 1 [facility] XcqeuhmDTGMWO6902-40-67 07:05:0024[facility] SxptfuvFMIRPC5567-29-90 07:05:0071[facility] LrimxbmAOKFAY9707-18-36 07:05:0051[facility] HermannLIPIDS 2018-11-30 07:05:0089[facility] HermannSPECIAL ZBDBYEDQU6138-55-16 07:05:006.8 [facility] UkmxwnfGULXGUNMWX7643-56-41 18:17:00 Test Item Value Reference Range Interpretation Comments MCH (test code = MCH) 30.1 pg 27.0-31.0 [facility] JbzmtcvTITDGPEJLF9391-65-25 18:17:0032.4[facility] HermannHEMATOLOGY 2018-03-29 18:17:0092.8[facility] CbxqmsnUDICTWVVRK3104-70-17 18:17:0011.5[facility] NrohvepDHGQZLPSSL6082-76-71 18:17:0035.6[facility] OmozzguYSSODOAZPB3681-28-24 18:17:0018.2[facility] VvuowyaZOVFLTLUGU3708-81-54 18:17:009.8[facility] PKYXZOFKAK1233-32-97 18:17:03289Fgijdgyp DieyyxzIQDJWUEJYN9723-64-61 18:17:005.9 [facility] ZvtasazXOPYACSXZJ3715-98-21 18:17:003.84[facility] HermannELECTROLYTES 2018-03-29 09:29:0010.6[facility] UanwxgyZRDDKLBNYCIZ7727-02-20 09:29:63983 [facility] QxztbwiISHMQCEEDTYO7458-76-51 09:29:0042[facility] HermannELECTROLYTES 2018-03-29 09:29:007.9[facility] TesavulOLBPJPOTNZLB8911-44-44 09:29:0026[facility] GbsldbaRIVCLXMCXQEK8475-23-02 09:29:003.6[facility] HtvqglwLUVGABHVRHMQ9941-00-14 09:29:55857Gkaxxtbd CrgjfkoPBFBTBJBESEB9816-34-43 09:29:34683Vfxahhxf [place] NOOBTVUBKHWL2572-80-28 09:29:001.70[facility] IxmcjhoRLXDGLPFQPTB2464-06-01 09:29:0020[facility] AfwmzpvSHIGWDQSXZ9384-89-63 09:29:00 Test Item Value Reference Range Interpretation Comments PT (test code = PT) 17.7 s 12.0-14.7 [facility] AreiakqBMSLTAJXAF5882-40-14 09:29:00 Test Item Value Reference Range Interpretation Comments INR (test code = INR) 1.45 1 0.85-1.17 [facility] PoxhvcaNMQPMY5758-81-01 09:29:00 Test Item Value Reference Range Interpretation Comments CHD Risk (test code = CHD Risk) 1.69 1 4.00-7.30 [facility] UsrtzqrRUYBJR4551-42-27 09:29:00 Test Item Value Reference Range Interpretation Comments VLDL (test code = VLDL) 13 1 [facility] NwetfexXNWEBG2544-85-12 09:29:0016[facility] OymxceiSWXGWR6814-83-71 09:29:0071[facility] OdehnpbCQWOSO5541-66-01 09:29:0042[facility] HermannLIPIDS 2018-03-29 09:29:0066[facility] EktjbjvRDFETFKGXG4239-82-88 10:42:0062.0[facility] UumcabtWVHCWMZCJH5439-17-72 10:42:0030.0[facility] LinlxlwBBXBWTMFJQ9632-63-51 10:42:269139Vnaulghh NaverjhMYTCVMCTJT3206-04-00 05:33:008[facility] HermannCHEM GDRPY3081-68-49 22:16:003.5[facility] RhbuxsqXHTBNEICQQ1533-23-53 22:16:00410.44 [facility] DashwbdFAGFGNQCWF4850-50-86 22:16:0013.69[facility] HermannIMMUNOLOGY 2018-03-27 22:16:000.10[facility] SrgtdqwREKHKUSRJO0168-71-92 22:16:003.25[facility] UxbdzpeRXRFNXAEKB3566-25-02 22:16:000.78[facility] YzclvmmKUJFKMIGYY9808-40-63 22:16:000.32[facility] VvmihlpRWELATBJBE7158-92-84 22:16:000.61[facility] [place] ITNINEMZGJ6219-63-00 22:16:007.0[facility] LozbbddAZSWDXWXVA6585-61-62 22:16:00 2.04[facility] YauxcexHKJPKSNJBH3288-48-15 22:16:004.6[facility] HermannIMMUNOLOGY 2018-03-27 22:16:0046.4[facility] UkxzqrgTKPGDOIYVQ6202-37-55 22:16:008.7[facility] EkqzopgJUJMYJKQTP9048-42-45 22:16:0011.2[facility] FyjozfzKNYHREQPWD2380-33-01 22:16:0029.1[facility] HermannCARDIAC UFFZRDM8718-53-57 10:11:66796Djjzuzre PxszdklEXTEPEHNSIRS3486-76-05 10:11:0010.7[facility] JrdzsdgXVHQIXCYLSJM4713-67-41 10:11:007.5[facility] KbahzjfXRVYTGQZMVHK2142-74-29 10:11:0026[facility] HMEEUMQRBSMM0664-08-69 10:11:0022[facility] AssmabvJUZOFFHAINGH3928-43-07 10:11:00 1.60[facility] UpfddwvXZQQFMFQFPUC8787-67-63 10:11:97594Sbmfatxr Noel GNTMHJQZACMR2637-32-12 10:11:80816Nvucsutt TbydjcwOQUAVYDNKXYO3953-18-64 10:11:003.7[facility] WgkxnjsGEMALWYUDPAK0152-31-82 10:11:0046[facility] QFWWXHVSMCXO4164-04-07 10:11:0087[facility] ChrfoddSUNAYMIVAJ3450-38-12 10:11:00 Test Item Value Reference Range Interpretation Comments INR (test code = INR) 2.09 1 0.85-1.17 [facility] ThjvxniDDECUSGQMF4962-65-01 10:11:00 Test Item Value Reference Range Interpretation Comments PT (test code = PT) 23.7 s 12.0-14.7 [facility]annURINE AND VANLA8596-29-15 14:47:00Positive *ABN*(03/26/18 8:47 AM)[facility]annCARDIAC OLPOJGA3175-75-47 10:02:06980P[place]teb [place] RBOEQBGLKHEU0740-67-75 10:02:009.5[facility] TxacmkqCZZWNTLLPFIR1232-74-86 10:02:0040[facility] XyxuygpAXLGBLKGZJZN3170-96-29 10:02:52207Zhpoyxbn [place] DBNLNMIEHJML3666-08-38 10:02:42753Wcjvwhpc RzvmllnUOEGRMMDEMAX6135-44-64 10:02:003.5[facility] XaqoyduBTPFLPUKGTHQ8362-55-78 10:02:0029[facility] TQSOQUHYEANR8413-19-17 10:02:007.6[facility] DzqmkjsMZRKEMTIHYJU3044-48-46 10:02:001.80[facility] UnybcknPPUSIHBQHHBO5865-07-72 10:02:00656Dcvbkear [place] JJXLWUNXAOFV6254-70-70 10:02:0025[facility] FmrweppQWDGKTGSNB1457-05-20 10:02:00 Test Item Value Reference Range Interpretation Comments PT (test code = PT) 27.1 s 12.0-14.7 [facility] KzzatsvUDAJCWUGTB7930-74-15 10:02:00 Test Item Value Reference Range Interpretation Comments INR (test code = INR) 2.48 1 0.85-1.17 [facility] QbwmyyaPBUEWFWLZI0357-24-06 10:02:001.7[facility]annHEMATOLOGY 2018-03-26 10:02:000.2[facility] WtwvigjVGONTOSFVC8552-11-16 10:02:001.4[facility] NmleiwtERYTXTXRZV0399-78-27 10:02:003.5[facility] PpcgyszCVWHGYMYUK6536-33-94 10:02:000.1[facility] FhvamxlBBYWTLHIYY3265-58-44 10:02:000.3[facility] IIYCITEOMP8643-76-20 10:02:0066.1[facility] ZpinfngQDKEDZZZVP8948-31-18 10:02:00 5.2[facility] ZtdvqpdZGUGVCHHQH7997-00-85 10:02:0027.1[facility]annHEMATOLOGY 2018-03-26 10:02:001.4[facility] HmqkkrnSJANXXWJDZ0322-39-11 10:02:0033.3[facility] PwwsoyiSLGMQZFZJV4492-21-93 10:02:00 Test Item Value Reference Range Interpretation Comments MCH (test code = MCH) 30.6 pg 27.0-31.0 [facility] SchsdbvAQQRSXRICU4307-65-40 10:02:0088[facility]annHEMATOLOGY 2018-03-26 10:02:0017.5[facility] LmhhcmoDJRDDIUFIY9224-12-51 10:02:009.0[facility] IumntziVDKWMSBYDA6421-18-76 10:02:005.3[facility] CuschknLJTFINKSKN8421-17-27 10:02:0011.6[facility] AfwomwmEDQYAGRYYR7336-48-50 10:02:003.81[facility] YLQJUPJEMQ3434-56-55 10:02:0091.8[facility] KbvbkphHZZHPUIOVO4589-62-24 10:02:00 35.0[facility] SawveunCTVOKEZBAK4193-79-05 11:24:003.78[facility]annHEMATOLOGY 2017-04-11 11:24:009.4[facility] LnepwfmFUGAHZTKQA1775-42-21 11:24:0074[facility] WbufovuDCROTKLIEK0737-64-79 11:24:0016.3[facility] HjhfdvgXEMXUWIUEL3412-59-79 11:24:0090.7[facility] WdgkqjjCDTKLFEBIJ3716-34-84 11:24:0033.9[facility] [place] OFWVQZZIOA6631-38-71 11:24:00 Test Item Value Reference Range Interpretation Comments MCH (test code = MCH) 30.8 pg 27.0-31.0 [facility] ZegkeukOXKDPUCUEP4226-99-25 11:24:0034.3[facility]annHEMATOLOGY 2017-04-11 11:24:0011.6[facility] TsvsusoPRQMCVDMXT2476-82-10 11:24:004.2[facility] IzrhoyyHWHKWKEFQD4616-16-08 11:24:005.2[facility] OsnxkoqSKCIRYZLBM6743-43-17 11:24:002.4[facility] TphbhplPZLGODTJSC4075-17-90 11:24:0058.5[facility] WVOGZLSTOE4363-66-35 11:24:0033.2[facility] OlfqcnjFWVPYVPXQQ5045-04-40 11:24:00 0.2[facility] ZjaxutfAHIVLFMZNB9506-90-23 11:24:000.1[facility]annHEMATOLOGY 2017-04-11 11:24:002.4[facility] VigjawpBSNAPNPURD0695-65-61 11:24:001.4[facility] HemisivOJTWAVDLRB0852-76-52 11:24:000.7[facility]annURINE AND SOGAI0432-12-46 15:39:00Negative (04/10/17 9:39 AM)[facility] TnkftbzJAXHQRUKOK4374-39-85 09:27:00 0.1[facility] HoklmuxEOBBYBEGTP1972-86-79 09:27:000.2[facility]annHEMATOLOGY 2017-04-10 09:27:001.5[facility] QmubjedZPGZARFTRO3860-27-82 09:27:002.3[facility] RwcxvjdXAAUGITSGT3481-00-31 09:27:000.7[facility] HbaqcceSARRBLVQHM4144-37-20 09:27:002.6[facility] FazdrliYSHQHRTANX0594-14-54 09:27:005.2[facility] UYAQDBHPZP6064-69-04 09:27:0035.9[facility] FtcplsrHHOXGTEUNX8020-21-67 09:27:00 55.6[facility] NdospmdYXUKFBKDGG6361-58-05 09:27:0058[facility]annHEMATOLOGY 2017-04-10 09:27:009.1[facility] BbryqcxCJTGBVPVJV1835-68-01 09:27:0032.5[facility] UekvxshTKEQXDNERG6016-97-52 09:27:0034.1[facility] VtcsfdcRRZJSPYWEQ4915-10-04 09:27:0016.2[facility] EcmyvjeVYWJFBSOGV0258-90-58 09:27:0090.3[facility] [place] YVHGZJKBMP7185-63-48 09:27:00 Test Item Value Reference Range Interpretation Comments MCH (test code = MCH) 30.8 pg 27.0-31.0 [facility] YsdutmkVHAEHXPQZS1211-79-12 09:27:0011.1[facility]annHEMATOLOGY 2017-04-10 09:27:004.2[facility] RscadgnIFVRPVFOJO0265-26-94 09:27:003.60[facility] HermannANEMIA SOLXG9758-55-55 23:26:57762Dykweivl HermannANEMIA VYGDQ8769-13-09 23:26:007.0[facility] HermannANEMIA LVBXY9423-39-84 23:26:90888Rktyjjtj [place] ANEMIA YGWRL6988-97-76 23:26:0022[facility] HermannANEMIA BYWIA5536-38-06 23:26:00 176[facility] HermannANEMIA FAUMX4539-54-06 23:26:00322Txzksijw HermannANEMIA PSRFA5518-41-91 23:26:0050[facility] HermannCHEM RSHHN2215-83-77 23:26:96274 [facility]annCHEM AFMWX3414-72-67 23:26:000.7[facility] HermannCHEM PANEL 2017-04-09 23:26:000.3[facility] HermannCHEM KUQZE7736-64-55 23:26:000.4[facility] EzzuusoVISVHHONHR7030-78-51 23:24:000.8[facility] WcmuhpyCMHBJOHQAI9143-91-05 23:24:00 Test Item Value Reference Range Interpretation Comments PTT (test code = PTT) 28.0 s 22.9-35.8 [facility] GsnzwvuSWPWSIIROW4418-93-41 23:24:00 Test Item Value Reference Range Interpretation Comments PT (test code = PT) 19.1 s 12.0-14.7 [facility] QyohkpxQRWUSJLTBL3477-06-30 23:24:001.59[facility]annHEMATOLOGY 2017-04-09 23:24:18704Ofonuxzc JqnoalvEBYSYRRHTI6112-99-18 23:24:009.69[facility] CmswwdfDQVXMDPNCU2797-53-36 23:24:0025[facility]annURINE AND ANMKN4342-65-78 15:14:00<=1.0[facility]annUR[facility] AND JRCUQ7568-77-35 15:14:007[facility] IPKAI1828-27-65 15:14:00Negative (04/09/17 9:14 AM)[facility] YEKFC1607-19-82 15:14:00Negative (04/09/17 9:14 AM)[facility] OIPVM4003-35-89 15:14:00Negative (04/09/17 9:14 AM)[facility] HSNMP1257-80-93 15:14:00Clear (04/09/17 9:14 AM)[facility]INE AND EIUKQ9835-24-92 15:14:001.010[facility]annUR[facility] AND ASEEM2714-81-19 15:14:006.0[facility]UR[facility] AND RZJRR7575-25-15 15:14:001[facility] URINE AND SLGGH9405-22-09 15:14:001[facility]ann[facility] AND LDYXJ3965-59-79 15:14:00Negative *NA*(04/09/17 9:14 AM)[facility] HermannCARDIAC YNYRGQK1425-43-95 02:31:40098Zpfwweit HermannCARDIAC IPSWILX1885-73-17 02:31:003.7[facility] CARDIAC NRRODZD3374-13-38 02:31:000.18[facility] HermannCHEM JZRRJ4985-85-73 02:31:00<10.0[facility] IabrcfvUJKNCTOUALPD2003-30-27 02:31:0011.4[facility] WkvjxnzEHLDIBBUTAJQ0382-51-03 02:31:0028[facility] RyxgxlxSRBPUKPWXCXC6803-06-01 02:31:0023[facility] KfcdtvmYDAIIXRWFXPB0865-69-97 02:31:002.40[facility] [place] HPWTYXMIMPEH6547-70-98 02:31:91553Nwlnzzho WekxlyiGNESQPZCTKQX8308-67-99 02:31:003.4[facility] MdusvipESDMQINODDMB9446-69-63 02:31:43313Lsqajmoo [place] JCYXASJISVZI6292-01-38 02:31:0026[facility] QgldercSTIRNENIAGNI2098-67-00 02:31:00 8.1[facility] TgxdptdTBNEVLINWHYS9555-14-03 02:31:29416Bcanggip HermannHEMATOLOGY 2017-04-09 02:31:0061[facility] DkankiaDCPCCWAJOV1501-14-43 02:31:0016.6[facility] BuhryfkCOMBJWKDOH9600-54-14 02:31:0033.3[facility] XciselyZEMGNTJXRA5537-98-24 02:31:0091.2[facility] NnanqwmEXIIRHQSPH3737-22-91 02:31:00 Test Item Value Reference Range Interpretation Comments MCH (test code = MCH) 30.4 pg 27.0-31.0 [facility] KzgkpfmTZWJJQIGHR4568-96-14 02:31:004.3[facility] HermannHEMATOLOGY 2017-04-09 02:31:003.84[facility] ZpxtikeEDSPPDHWMO2863-33-85 02:31:0011.7[facility] SyqpavyDPZQOFHQKU1346-81-52 02:31:009.5[facility] NjorfqyWPRQYLEOYB0087-37-12 02:31:0035.0[facility] IhrvhqdEXMKWCEDCM7722-51-74 02:31:00 Test Item Value Reference Range Interpretation Comments PTT (test code = PTT) 26.7 s 22.9-35.8 [facility] LkthuulYDUNXFZHBF1133-72-03 02:31:001.67[facility]annHEMATOLOGY 2017-04-09 02:31:00 Test Item Value Reference Range Interpretation Comments PT (test code = PT) 19.8 s 12.0-14.7 [facility] YvceaxdIAIDWJOZQP9953-23-20 02:31:0026.2[facility]annHEMATOLOGY 2017-04-09 02:31:0069.6[facility] CpvmvisAUAMDDKEWG4922-22-55 02:31:001.0[facility] MfcjnsaWVTEEFSHXC0589-87-05 02:31:003.0[facility] PucihbqNRVWZZTJVK6740-57-95 02:31:000.2[facility] FpwbakeTDRTYADFXX1011-50-48 02:31:000.1[facility] UHOBXEALSG0981-03-47 02:31:001.1[facility] ZhakhjsDZFZMYYZVH4782-98-38 02:31:000.0 [facility] GyvxdzpAOQMPOFZGM2903-39-59 02:31:003.0[facility]annHEMATOLOGY 2017-04-09 02:31:000.0[facility] PjnraxrQGRPRPZGLC2106-59-64 10:18:0010.7[facility] YjxdqzaKOWNHMDXUD9415-46-14 10:18:0092.8[facility] YjepdeiBNKMHWEXYD0478-21-45 10:18:00 Test Item Value Reference Range Interpretation Comments MCH (test code = MCH) 30.5 pg 27.0-31.0 [facility] XqrvuvpNYNRJZUSQE9200-19-87 10:18:0012.3[facility]annHEMATOLOGY 2017-03-23 10:18:0037.5[facility] RozwwjhHTEZDDLGEX0885-60-42 10:18:0032.9[facility] NnzzaeqYEPDTCRIQJ3081-88-15 10:18:0041[facility] SvftreoRDPDOFKOOZ0091-40-50 10:18:0016.7[facility] EacokioBOMNIBKTWY2926-03-62 10:18:006.8[facility] PLWDIHCTUK9446-72-48 10:18:004.04[facility] YxxstpcSVPQTVIAVF8622-50-54 10:18:00 0.1[facility] VcxkuedKQASMPONOP3563-11-55 10:18:003.2[facility]annHEMATOLOGY 2017-03-23 10:18:001.3[facility] MganjmrUEFNKRWELC8173-88-66 10:18:0073.3[facility] ZuwaajsJZCBBXRWUR4408-61-54 10:18:0022.1[facility] GiidiwtHIUVECIZUE6662-51-05 10:18:000.0[facility] IxvcklgWOQBMEUXPJ7090-65-12 10:18:000.2[facility] [place] OYHQRMUNSJ9388-17-65 10:18:000.1[facility] QxnczhsOERFCCWITN0979-39-44 10:18:005.0 [facility] UdyxoiaOHEVVDZTIQ7033-46-46 10:18:001.5[facility]annHEMATOLOGY 2017-03-22 10:26:0092.0[facility] KnhvrqlLFNLICHYEZ0021-66-45 10:26:0011.9[facility] ZcsvfusFBSPUQIKLF6571-63-01 10:26:00 Test Item Value Reference Range Interpretation Comments MCH (test code = MCH) 30.5 pg 27.0-31.0 [facility] DlirgdzXNZCPIFUSF9162-62-34 10:26:0035.7[facility]annHEMATOLOGY 2017-03-22 10:26:008.9[facility] GukldyuPPVJDZFOTS9766-88-52 10:26:0058[facility] DlfzaibGMXWSOMVVM6365-28-99 10:26:0016.4[facility] EklncgwEFBDHYRLPS9584-13-36 10:26:003.88[facility] RkqrgjkVPNHDQOXAS8469-02-75 10:26:005.3[facility] XNLQPCIIESAG6013-56-37 10:26:0015.8[facility] HicdqykJDQMPMFLZZEI7489-90-89 10:26:008.8[facility] OcxjyceEQHCHQIOSQEG7692-44-89 10:26:0026[facility] [place] JLXEKATABDEF0627-01-18 10:26:53884Mjymvyyw NntdotrDQJCGUWCNWTI5456-22-40 10:26:0040[facility] YhluvpbFTLJPSCJXOXO8996-13-65 10:26:0096[facility] DWYRHPRORCWS5113-47-16 10:26:003.8[facility] ZlbkjjgCYQRVFNYMUUY3973-40-50 10:26:0025[facility] SbtxbjpPRHQALHKPTZB1041-44-12 10:26:09075Ldsngtlv [place] RDGAWWPVZIXP3852-12-08 10:26:002.60[facility] EilnyswYYNPKPTJNK2008-03-81 10:26:00 0.3[facility] XplbgbmQWPEEEGGAQ2345-70-30 10:26:001.2[facility]annHEMATOLOGY 2017-03-22 10:26:000.1[facility] BgcldtkXCKPCIGCEE9973-23-77 10:26:003.7[facility] XyqqmsmRNRFMGQLTD2898-69-41 10:26:0069.6[facility] RmnbzkzGXJCXIJVEP3669-95-53 10:26:0023.0[facility] YpsmcbpELIPQSDXQU8391-13-34 10:26:001.9[facility] YLTGAHJWUE3130-32-12 10:26:004.9[facility] NbwepatUGDUQREABB8911-21-73 10:26:000.6 [facility] UtlxiauKAOAIZLZIE2817-60-79 10:26:0033.2[facility] HermannELECTROLYTES 2017-03-21 09:55:0014.5[facility] QmxpltrTBDCPNXKSWMO2404-32-55 09:55:0022[facility] CqqgpgfSKBPTCTGFDWM0185-83-39 09:55:002.90[facility] OjlsgvbVSFFZUNPUEBM0548-03-46 09:55:0044[facility] OnuilnqOBCLKSTOWQEK5499-35-04 09:55:0097[facility] [place] RSFRUGGQEEUA6706-50-40 09:55:69041Smguaxmg ByihcrfBDKCGTYFPCMZ1021-82-00 09:55:003.5[facility] GegakejHSQKRJPJQKRM6422-07-69 09:55:009.0[facility] HVXGNXNEYHPK8993-04-41 09:55:0027[facility] YoyptrqMRZAATKCKOLT5883-66-65 09:55:00 101[facility] NaabfvfSMUZIEVGCH4844-54-25 09:55:000.0[facility]annHEMATOLOGY 2017-03-21 09:55:001+ *ABN*(03/21/17 3:55 AM)[facility]annHEMATOLOGY 2017-03-21 09:55:001.4[facility] WqipgevQAWBPSYFNQ7974-83-56 09:55:004.9[facility] PhlgdxxEKGUUXWSIU2677-25-71 09:55:0027.5[facility] ChzrhpdPZPAPMHSRH0200-94-26 09:55:000.2[facility] QrclfssDXZSPYIXSG9502-41-75 09:55:001.4[facility] UQFYKADESR4675-55-84 09:55:000.6[facility] TspqwghRZTJKRUPKA7908-33-99 09:55:003.3 [facility] LwrqxufOPLGYCVAWB1627-40-53 09:55:0065.6[facility]annHEMATOLOGY 2017-03-21 09:55:000.1[facility] LzibzndOSDKHPOPLI4366-14-05 09:55:00 Test Item Value Reference Range Interpretation Comments PT (test code = PT) 14.3 s 12.0-14.7 [facility] PvwgzslKRSZKPHOWZ3988-66-97 09:55:001.11[facility]annHEMATOLOGY 2017-03-21 09:55:0012.0[facility] OcjljwkMPTGFXQGYQ4247-82-69 09:55:0035.4[facility] GxxgizyMKTATJHFDE6492-59-85 09:55:0091.2[facility] XzimdvtVXFFSKBBIX8890-95-61 09:55:003.88[facility] PiasdenDLXDBIKLRY5520-58-28 09:55:005.0[facility] REKPUNSXBE4602-14-62 09:55:0016.3[facility] NwvxbgzZKMJMPNYRR8859-51-16 09:55:0065 [facility] VzgkofiWVZKFWEUUY1254-85-35 09:55:008.8[facility]annHEMATOLOGY 2017-03-21 09:55:00 Test Item Value Reference Range Interpretation Comments MCH (test code = MCH) 30.8 pg 27.0-31.0 [facility] FuniechJNRPJMZLKI8828-09-72 09:55:0033.8[facility] HermannIMMUNOLOGY 2017-03-21 09:55:00Negative (03/21/17 3:55 AM)[facility]annELECTROLYTES 2017-03-20 11:35:0016.2[facility] HntamreYOMOWQUPCHCU4812-66-65 11:35:0024[facility] SflfxrmGLTYTGVFQAZF9372-17-27 11:35:009.1[facility] ZaisqwdWMQMZRHOSWBV7675-23-42 11:35:0095[facility] AsqzyvqCXYZIWITBSGE7660-25-37 11:35:0043[facility] XUFBFMLDYWTY6005-98-87 11:35:0098[facility] NbtechdUIGWQQWHUOAB9468-47-43 11:35:00 3.2[facility] LjflvqoOOMRAFYBDCYE4454-69-40 11:35:0024[facility] HermannELECTROLYTES 2017-03-20 11:35:01189Bhpakftt HxbfkqmTOOLYKYAGCCS7660-91-19 11:35:002.70 [facility] PogdbmmMBIQJTKUEE6158-03-15 11:35:00 Test Item Value Reference Range Interpretation Comments PT (test code = PT) 14.4 s 12.0-14.7 [facility] KsciwwhURKAFSLKOC3093-14-04 11:35:001.12[facility]annHEMATOLOGY 2017-03-19 11:42:001.20[facility] BxzgadiDLPHTPAEYS1629-44-93 11:42:00 Test Item Value Reference Range Interpretation Comments PT (test code = PT) 15.3 s 12.0-14.7 [facility]annCHEM SBAHE0621-04-50 14:57:002.3[facility] HermannCHEM PANEL 2017-03-18 14:57:002.9[facility] HermannCHEM JRNJO5675-46-29 14:57:002.0[facility] EhzrzqpKNNDQLPMBJ8868-07-63 14:57:000.0[facility] YflhnntOHICRAOLQI9144-55-97 14:57:00 Test Item Value Reference Range Interpretation Comments PTT (test code = PTT) 38.2 s 22.9-35.8 [facility] BkwgwvkDFSJKKGVTR4604-82-69 14:57:00<10[facility]annHEMATOLOGY 2017-03-18 07:48:00 Test Item Value Reference Range Interpretation Comments PTT (test code = PTT) 49.8 s 22.9-35.8 [facility] BgznllhRHLLBVGTVW4551-48-73 02:24:00 Test Item Value Reference Range Interpretation Comments PTT (test code = PTT) 33.2 s 22.9-35.8 [facility] VfxpkeyHXFWUMAFWO6209-80-41 18:58:003.61[facility]annHEMATOLOGY 2017-03-17 18:58:17028Zpsvzplz HszzqbfVVWAEVLHII2764-87-63 18:58:00Negative 1(03/17/17 12:58 PM)[facility]khsnviCIBOHVZQOX6540-64-06 18:58:00 Test Item Value Reference Range Interpretation Comments Pat Od Value (test code = Pat Od 0.069 1 Value) [facility]andMdootqwQCCGUNIXFY1023-92-09 18:58:00 Test Item Value Reference Range Interpretation Comments Pos CO Value (test code = Pos CO 0.400 1 Value) [facility]annCHEM EPTMI6031-25-92 10:09:003.0[facility]annCHEM PANEL 2017-03-17 10:09:002.4[facility] HermannCHEM JQLPA7361-76-08 10:09:002.3[facility]annUR[facility] AND NPSUI5603-25-80 02:57:006.0[facility]UR[facility] AND STOOL 2017-03-17 02:57:001.012[facility]UR[facility] AND NEWVQ8724-89-80 02:57:00 <=1.0[facility]annUR[facility] AND KKZCA1953-01-51 02:57:001[facility]UR[facility] AND NNWRM2206-12-66 02:57:00Negative (03/16/17 8:57 PM)[facility] HNODJ4689-61-83 02:57:00Negative (03/16/17 8:57 PM)[facility] KYYLG8411-25-59 02:57:00Negative (03/16/17 8:57 PM)[facility] TNOAO9397-97-22 02:57:00Negative *NA*(03/16/17 8:57 PM)[facility] NPNQD9305-83-32 02:57:00Clear (03/16/17 8:57 PM)[facility]ann[facility] CHEM 2017-03-17 02:57:000.1[facility]annURINE WRXO1724-35-91 02:57:00None Seen (03/16/17 8:57 PM)[facility] MQHK3283-06-96 02:57:92551.00[facility]annURINE LOOF2176-62-40 02:57:0014.8[facility]annURINE WZSZ6698-69-62 02:57:0033[facility]annCARDIAC MTIGHVT4299-77-52 19:09:001.8[facility] [place] CARDIAC CDLTOPG8049-56-06 19:09:28953Bfxdkhip HermannCARDIAC LXJSPSX7147-53-56 19:09:002.1[facility]annCARDIAC NNQZKAO9336-91-04 19:09:000.15[facility]annCARDIAC RMAOMZL2617-90-65 19:09:44250Ffxxlvrb HermannCHEM WYZYN2805-44-08 19:09:000.07[facility] ElwirvwBJLFHULYAU1730-71-93 19:09:0054[facility] ZGRMQPTYFZZH4687-98-49 09:32:0015.7[facility] VqufyrtARYVQMPZAFUS3006-61-37 09:32:0024[facility] YarwclhEAJWKRAABFCE9744-10-80 09:32:12123Tjhxniqa [place] KPILQKDYTEMG6438-96-97 09:32:003.7[facility] IajordzYQARVMYQSAGW5861-46-25 09:32:65689Nfyzwigk YxwcjgjBHQWUDDWDGFQ7578-26-54 09:32:0043[facility] RFLXBBWTFDQQ0722-90-99 09:32:007.9[facility] PgzmsviRTHTTSVJMUTG0692-30-36 09:32:75753Idztitkw QytpbbdHSVIYMVFKSGC8565-74-19 09:32:0034[facility] [place] LVXYABYDYWIU9158-33-64 09:32:001.70[facility] SrphurgEWLWXM7128-17-90 09:32:0017 [facility] SitudgvTDLPOC9336-07-82 09:32:0031[facility] KjtvchhRAPSQN3186-42-06 09:32:56538Higbimyc DtckfeaIPWHBV9316-20-60 09:32:0085[facility] HermannLIPIDS 2016-03-11 09:32:001.89[facility] ZcjcwkhYZSSBA4854-97-71 09:32:0054[facility] HermannCARDIAC FIMQTYZ4277-49-04 21:57:77793Kwvdfjru HermannCARDIAC ENZYMES 2016-03-09 21:57:002.0[facility] HermannCARDIAC IJVQLYT4538-05-14 21:57:000.19 [facility]annCARDIAC GATAYDW9293-60-26 21:57:001.7[facility] HermannCARDIAC FQLHZZD1967-92-49 21:57:0084[facility] HermannCHEM SDXRN8430-52-61 21:57:0035 [facility]annCHEM DIKGR5852-71-88 21:57:0029[facility] HermannCHEM PANEL 2016-03-09 21:57:003.8[facility] HermannCHEM ILFRE8804-02-12 21:57:008.2[facility] HermannCHEM WVHVH6190-83-58 21:57:73737Qldkjdwq HermannCHEM BFDOO7156-83-51 21:57:67277Pxoyjjar HermannCHEM QVBFU4016-48-82 21:57:002.00[facility] HermannCHEM PHWBR5600-70-66 21:57:0034[facility] HermannCHEM VHISW8005-73-43 21:57:49017 [facility]annCHEM YGTHF0522-30-05 21:57:0013.8[facility]annHEMATOLOGY 2016-03-09 21:57:0010.1[facility] PmlniyjHZPCJWRLCJ0888-69-50 21:57:28196Sovuyycm XvsaengUNJXJMVJPF3787-12-53 21:57:0018.7[facility] XjchxquWQEOSVDEHK5938-95-83 21:57:0012.4[facility] RahkzbfAKMEUIMAHS1217-36-89 21:57:0032.0[facility] EMJOXEDVBU0809-44-71 21:57:00 Test Item Value Reference Range Interpretation Comments MCH (test code = MCH) 27.8 pg 27.0-31.0 [facility] YsfihpbWIMJGDWGHQ5246-03-29 21:57:0086.7[facility]annHEMATOLOGY 2016-03-09 21:57:0038.7[facility] WvzdhwnFXKEDZGVBH7879-08-66 21:57:004.46[facility] BcxwjdiNRRHSKZKTU2295-67-38 21:57:006.5[facility] LsiimtcTKCGYJDCLS7750-85-09 21:57:003.9[facility] NnqsjbgLKJTPQOEPK2907-59-62 21:57:002.0[facility] LVKWYTLSRK6416-66-89 21:57:004.1[facility] RmevldtEFCRCNVOMI1844-60-86 21:57:000.0 [facility] SyaxwipTQMSJMDJHK0195-11-15 21:57:000.5[facility]annHEMATOLOGY 2016-03-09 21:57:001.7[facility] PdmpjfwFUZDOYELHC4400-14-79 21:57:000.1[facility] JewbpmxUYHRWCGYLK0617-84-61 21:57:000.3[facility] EiwmisvYKBYPTYXXI8900-83-41 21:57:0030.7[facility] NmhwutjSJJFPCLLGM9134-42-73 21:57:0063.2[facility] URINE AND VFUBL1569-31-29 21:57:006[facility] TWAMO7401-28-16 21:57:001[facility] FZYFV1394-89-25 21:57:00Small *ABN*(03/09/16 4:57 PM)[facility] NVJCR4239-69-62 21:57:00Negative (03/09/16 4:57 PM)[facility] XQUQC2767-77-31 21:57:00<=1.0[facility] DFGQQ4170-49-14 21:57:00Negative *NA*(03/09/16 4:57 PM)[facility] EFWZX5362-99-24 21:57:00Negative (03/09/16 4:57 PM)[facility] EIUMT0709-72-40 21:57:007.0[facility] STOOL 2016-03-09 21:57:00Clear (03/09/16 4:57 PM)[facility] STOOL 2016-03-09 21:57:00Light Yellow *NA*(03/09/16 4:57 PM)[facility] IAZMX5164-91-99 21:57:001.009[facility]annCARDIAC ILVFSHR8437-57-73 09:41:00 1.0[facility]annCARD[facility]AC HWHXTZZ5063-18-83 09:41:000.9[facility]annCARD[facility]AC KYUWYDZ8302-04-00 09:41:000.17[facility] GVJNWTM7621-97-53 09:41:00 91[facility] BrqgqcaPGZLWEHAIFJN2885-54-73 09:41:0012.1[facility] SINFJGDCNHVO6603-43-21 09:41:004.1[facility] EfcwkihHVWNNZFAIXNE5931-02-60 09:41:92721Qknruegs QropwywADOTLCONTHVE3394-56-71 09:41:0034[facility] GPQSFHFFPXBL6078-43-78 09:41:0030[facility] MagmohbWQPDSXEPJYQJ4080-38-01 09:41:00 8.5[facility] AepzizfWKDRWNHJKHLU5666-99-14 09:41:0093[facility] HermannELECTROLYTES 2016-01-18 09:41:0027[facility] TyafrrxJEAFRBXRFCYU8052-88-23 09:41:002.05[facility] JnlmfjpERUNEVWCSRSX6486-75-14 09:41:20132Dohktjym JwdtkpwASYSASHKYR9082-13-63 09:41:0087.5[facility] QonzjgnAELJDUEHNF4103-43-39 09:41:00 Test Item Value Reference Range Interpretation Comments MCH (test code = MCH) 28.0 pg 27.0-31.0 [facility] RdgxirnEJPMONYMGH0140-10-19 09:41:0017.7[facility]annHEMATOLOGY 2016-01-18 09:41:0032.0[facility] RgamircDMJBPYKEGH1632-25-94 09:41:008.8[facility] UgdwxngNBNHZJQPNI5420-04-91 09:41:48613Iuwhkont IhhrjxlIEOBTWYFGP3583-32-41 09:41:005.2[facility] IugcpduFESMQODGOE0225-46-84 09:41:0032.9[facility] CXINBCJJFB6612-77-35 09:41:0010.5[facility] InweywuVXRSRMFREX5555-86-23 09:41:00 3.76[facility] GleksocBGRSVZELXT1781-11-68 09:41:005.9[facility]annHEMATOLOGY 2016-01-18 09:41:0053.3[facility] ShjppmmYIULWYRGLK2657-17-65 09:41:003.7[facility] TgjvuaiIVDJUVMXDU9755-02-30 09:41:0036.8[facility] IpgukplBTOOKJIMKF3630-02-20 09:41:001.9[facility] OkvdfpfDEKERUKENL0599-24-35 09:41:000.3[facility] VQBORCIOHE0494-84-35 09:41:002.8[facility] NzgawyrRFLHCHXIMU3673-43-58 09:41:000.0 [facility] KlxblupGFFAGUHRKW2912-96-02 09:41:000.3[facility]annHEMATOLOGY 2016-01-18 09:41:000.2[facility] VcfjrhqEHGKEW1763-22-04 09:41:0017[facility] IsgzbzoVXTAPL5848-51-34 09:41:0034[facility] XrinhcaKELSRI1810-09-55 09:41:0084 [facility] RqxbdqnOHLUXA7509-16-00 09:41:0051[facility] GqbqfnwVLLMFL3902-29-88 09:41:98043Qlbkblil XpfsntnWJTGOD3660-90-28 09:41:002.00[facility]annCARDIAC QULLJAX9349-33-78 02:20:001.3[facility]annCARDIAC UAZZVHU5598-28-96 02:20:00 1.2[facility]annCARDIAC EKMGMMZ6133-68-77 02:20:000.16[facility]annCARDIAC AXYWDCS8203-81-68 02:20:0095[facility] CyujmagZFIBXRRJHF2482-50-67 02:20:00 Test Item Value Reference Range Interpretation Comments PTT (test code = PTT) 28.0 s 22.9-35.8 [facility] MewvdlkGHMEXDQKYY7002-61-66 02:20:001.22[facility]annCARDIAC ENZYMES 2016-01-17 21:51:001.6[facility]annCARDIAC YAPYGIK0533-64-99 21:51:000.18 [facility]annCARDIAC TXOITLD4923-62-26 21:51:37848Ihroklzg HermannCARDIAC IHELURA0057-15-21 21:51:40699Mfyqoeaj HermannCARDIAC SPOQCZX9113-95-36 21:51:00 1.5[facility] HermannCHEM PDFHY2761-90-49 21:51:0035[facility]annCHEM PANEL 2016-01-17 21:51:000.6[facility]annCHEM DMPTA8082-65-35 21:51:005.1[facility]annCHEM EDLYO0807-97-93 21:51:0013[facility]annCHEM PFLTL1996-72-29 21:51:0082[facility]annCHEM CZKIG2030-58-16 21:51:0011.9[facility]annCHEM AFRNS7245-13-88 21:51:000.3[facility]annCHEM KQHRI7617-65-01 21:51:0012 [facility]annCHE[facility] QXCFG9702-00-28 21:51:0014[facility]annCHEM PANEL 2016-01-17 21:51:003.1[facility]annCHEM VCRIH8248-28-28 21:51:0027[facility]annCHEM XEFSN2249-88-98 21:51:83888Rpbrhobu HermannCHEM PIWGO3973-40-49 21:51:008.2[facility]annCHEM HHCVU4626-91-80 21:51:008.1[facility]annCHEM SGFRL1345-71-65 21:51:002.02[facility]annCHEM TPXBE5427-64-72 21:51:0028 [facility]annCHE[facility] VHVAM0139-75-22 21:51:65897Gitrvbku HermannCHEM PANEL 2016-01-17 21:51:003.9[facility]annCHEM XKHPV4659-06-70 21:51:54279Dvoafapd IqkiyulWBQSJFFGHT0199-55-83 21:51:0032.7[facility] WtqinfdGQZUBWQTKN2019-60-09 21:51:0087.5[facility] KpzcksiTWNBCQQQTU4625-26-34 21:51:00 Test Item Value Reference Range Interpretation Comments MCH (test code = MCH) 28.0 pg 27.0-31.0 [facility] CjennymLOBTXVYNDG2613-88-89 21:51:0032.0[facility]annHEMATOLOGY 2016-01-17 21:51:0017.9[facility] CecgezmZWPHTVRQGM3653-42-45 21:51:02684Tnsqqsab YaeafopSSBKIFGZEC1012-45-21 21:51:008.3[facility] CtvambiHMFJCBBKCT7535-63-06 21:51:005.5[facility] YxmaeslTXHNPCVPGH5539-42-23 21:51:003.73[facility] NLOJZKZSCW4609-47-25 21:51:0010.4[facility] YjiltijPDLNLAZOIU9870-05-99 21:51:00 33.3[facility] WivhdfwYJHWIJNBVF0120-16-21 21:51:002.5[facility]annHEMATOLOGY 2016-01-17 21:51:005.8[facility] KveqaojXZVHYSOTEK9747-50-39 21:51:000.3[facility] LfpqrheDXPJIKFFAI2753-89-39 21:51:003.2[facility] AulxjfeNDNBLALLGX1794-81-39 21:51:001.8[facility] WgrdgyaKOKNTQLXKS9392-75-06 21:51:000.3[facility] MBOWNQOCJM9761-01-44 21:51:000.1[facility] JxgvnmyRGNAEOZFXK2644-12-22 21:51:000.0 [facility] PvdaobwVSXNMAZIRE5070-09-41 21:51:0058.1[facility]annCHEM PANEL 2015-05-28 21:44:0047[facility]annCHEM DYYRX3746-91-30 21:44:0012[facility]annCHEM KLOVW1696-54-83 21:44:003.5[facility]annCHEM IFEAK1897-18-89 21:44:007.7[facility]annCHEM XCHRY4364-52-37 21:44:0076[facility]annCHEM DPYQV6149-40-77 21:44:000.4[facility]annCHEM ODDBD7991-74-63 21:44:0017 [facility] NCGZJ4110-89-64 21:44:001.60[facility]annCHEM PANEL 2015-05-28 21:44:50351Kxidppma HermannCHEM QRZKG6650-41-62 21:44:004.3[facility]annCHEM FAPEG2297-85-37 21:44:66810Jdhvbysq HermannCHEM IOVNO8034-83-85 21:44:008.5[facility]annCHEM QPUBK5771-74-73 21:44:0028[facility]annCHEM MIXCN6742-98-40 21:44:0082[facility]annCHEM PNUZB5463-25-54 21:44:0027 [facility]annCHE[facility] JKSSE9397-64-66 21:44:000.8[facility]annCHEM PANEL 2015-05-28 21:44:004.2[facility]annCHEM HSURD2926-57-67 21:44:0010.3[facility]annCHEM GAWYU5466-97-77 21:44:0017[facility] EummifvUJXRWKYAZV6101-40-44 21:44:00 Test Item Value Reference Range Interpretation Comments PTT (test code = PTT) 23.6 s 22.9-35.8 [facility] SipntxsRXYBMSWSWY1279-17-34 21:44:001.12[facility]annHEMATOLOGY 2015-05-28 21:44:00 Test Item Value Reference Range Interpretation Comments PT (test code = PT) 14.7 s 12.0-14.7 [facility] AjwqjstFSPAWDILAL8463-16-55 21:44:0072[facility]annHEMATOLOGY 2015-05-28 21:44:009.8[facility] ElszuarJAEXHQGPTY9545-88-72 21:44:0018.5[facility] IlvawtgXQYZSQGDLO2500-82-24 21:44:0033.3[facility] LsewvxiZOONASUFDM3628-94-71 21:44:0087.0[facility] EshsahiOAAVDQTJTF4501-25-00 21:44:00 Test Item Value Reference Range Interpretation Comments MCH (test code = MCH) 28.9 pg 27.0-31.0 [facility] HyxjbnhFZSNFFKWSO4005-26-15 21:44:0036.7[facility]annHEMATOLOGY 2015-05-28 21:44:0012.2[facility] OyrkbkeXQYGRJFSRV1566-27-92 21:44:004.22[facility] ZwvnbekTMIULRONKY4008-85-93 21:44:005.9[facility] EvteramZBCAROWISK4625-20-07 21:44:000.1[facility] ZugxhrmAVZKXTHICQ5170-90-64 21:44:000.0[facility] ERAXHMVDCW3627-74-27 21:44:000.5[facility] LemlvujQRPKESJRZE9094-97-25 21:44:001.7 [facility] EuexjpvCXEBKNLCTF1505-65-10 21:44:003.6[facility]annHEMATOLOGY 2015-05-28 21:44:002.3[facility] MmeejmcKTFTWEJVLH7224-00-92 21:44:008.0[facility] GidudulGNOVYLZFJU3620-32-22 21:44:0028.5[facility] WekqhhvAGWFTLUFMB8118-49-73 21:44:000.3[facility] CxvffejXTTFAUUCEE7891-51-26 21:44:0060.9[facility] URINE AND MBAHK3424-45-71 21:44:00None Seen (05/28/15 3:44 PM)[facility] URINE AND BDIWU5882-47-62 21:44:00None Seen (05/28/15 3:44 PM)[facility] URINE AND MEESG7378-84-90 21:44:00Large *ABN*(05/28/15 3:44 PM)[facility] URINE AND WLXEO7437-96-24 21:44:000.2[facility] UJVOU9144-68-24 21:44:00Positive *ABN*(05/28/15 3:44 PM)[facility] IZOBM8838-94-95 21:44:00 Test Item Value Reference Range Interpretation Comments UA Spec Grav (test code = UA Spec 1.015 1 Grav) [facility] RXBOY3727-37-71 21:44:00Slight Cloudy (05/28/15 3:44 PM)[facility] GKADP0442-18-49 21:44:00 Test Item Value Reference Range Interpretation Comments UA pH (test code = UA pH) 7.0 1 5.0-8.0 [facility] LVTRU2775-71-20 21:44:00Yellow *NA*(05/28/15 3:44 PM) [facility] VSSIN5810-69-03 21:44:00Negative (05/28/15 3:44 PM) [facility] PUOOX3466-43-71 21:44:00Negative *NA*(05/28/15 3:44 PM) [facility] TTTNN8649-75-57 21:44:00Moderate *ABN*(05/28/15 3:44 PM)[facility] IPIAW0700-41-52 21:44:00Negative *NA*(05/28/15 3:44 PM)[facility] VgkquxzSTLMNBNQZZ6948-31-47 20:07:00 Test Item Value Reference Range Interpretation Comments POC PT (test code = POC PT) 12.2 s 12.0-14.7 [facility] CufzhrcVCTONYFAXB5547-20-33 20:07:001.0[facility]annCARDIAC ENZYMES 2015-04-22 00:26:000.9[facility]annCARDIAC AWQHNZC8214-74-44 00:26:000.20 [facility]AC QTXEYZE2315-95-20 00:26:001.6[facility]annCARDIAC QXPASGD0756-84-77 00:26:71171Gkiwfdpw HermannCARDIAC GPHNUKA2845-60-33 17:11:00 0.24[facility]annCARDIAC MEPRXFJ9792-06-59 17:11:002.3[facility]annCARDIAC TAQZHOT4714-42-06 17:11:54478Jkupsdga HermannCARDIAC YRFINMT5225-99-09 17:11:00 1.7[facility]annCARDIAC MPQYGCH1863-19-35 09:10:65728Xbkugagg HermannCARDIAC CHVSVGO7447-03-05 09:10:001.8[facility]annCARDIAC NHFQHET2692-09-40 09:10:00 0.24[facility]annCARDIAC VKJUWFV6280-43-61 09:10:46988Pswpuacv HermannCARDIAC WVPBOPT3714-33-28 09:10:001.4[facility]annCHEM FSKAZ2748-29-11 09:10:002.2 [facility]annCHEM PUDIU7602-43-27 09:10:002.0[facility]annCHEM PANEL 2015-04-21 09:10:0097[facility]annCHEM SPRUL8621-09-24 09:10:0020[facility]annCHEM GBKEC8715-23-88 09:10:006.9[facility]annCHEM LCRIE6513-16-16 09:10:003.1[facility]annCHE[facility] IFLVF5083-73-85 09:10:0018[facility]annCHE[facility] CRDLX5716-61-91 09:10:001.70[facility]annCHEM EGEBU7237-98-64 09:10:24111 [facility]CHE[facility] VCSPQ6175-46-85 09:10:76910Etlisjen HermannCHEM PANEL 2015-04-21 09:10:0073[facility]annCHEM BGROW0915-06-65 09:10:003.6[facility]annCHEM KVQVO2787-78-13 09:10:0024[facility]annCHE[facility] ACOJY8596-49-10 09:10:0043[facility]annCHEM BVQWR4772-78-35 09:10:008.2[facility]annCHEM MYEXC6515-76-79 09:10:0027[facility]annCHE[facility] NTMRE6200-98-48 09:10:000.5 [facility]annCHE[facility] RKYEY6389-53-27 09:10:0012[facility]annCHEM PANEL 2015-04-21 09:10:003.8[facility]annCHEM MKAEU4919-29-86 09:10:000.8[facility]annCHEM WZIJY6273-52-98 09:10:0011.6[facility] MfrompzVSFMMSFLIB7942-94-54 09:10:0088.7[facility] RdbwtfkKMQDPGQOZE6576-94-27 09:10:003.94[facility] LPHXREVLVO5574-08-83 09:10:0011.1[facility] LociuabMSIZGYODZY6410-07-33 09:10:00 4.8[facility] KxjgrolNGPVNTGMZV1519-40-74 09:10:0035.0[facility]annHEMATOLOGY 2015-04-21 09:10:0085[facility] XmgsrteMGZESZPUHB7254-91-96 09:10:00 Test Item Value Reference Range Interpretation Comments MCH (test code = MCH) 28.3 pg 27.0-31.0 [facility] SczothiFDBRTSURLW4321-78-33 09:10:0031.9[facility] HermannHEMATOLOGY 2015-04-21 09:10:0017.7[facility] DjzekzdIHOWFYPRDP8684-45-83 09:10:0010.2[facility] AddwofiTBKSBEWUBN9926-38-06 09:10:0029.8[facility] MicsflsRGCEBXBKHY9837-26-60 09:10:005.3[facility] UhlnxovCUIWJHEULG9292-10-43 09:10:003.2[facility] KGFUZUBOYU8053-65-65 09:10:0061.4[facility] VgkawitODUMEHGNHQ2480-12-78 09:10:00 3.0[facility] KkezbauVGMJHZXFRE0087-04-86 09:10:001.4[facility] HermannHEMATOLOGY 2015-04-21 09:10:000.3[facility] GxgtgaaEGANUABBOD7582-31-70 09:10:000.0[facility] LttidmtFZRODZXXOY2539-13-64 09:10:000.3[facility] WsiwdmsXSSRFOPGOR1711-39-88 09:10:000.2[facility] LmgyiuoBTMQYA3753-92-90 09:10:002.04[facility] HermannLIPIDS 2015-04-21 09:10:0014[facility] RuphggaPMTAQJ3509-37-72 09:10:0033[facility] JZWTWI9517-62-93 09:10:0092[facility] FxfzpqqWVTQZS5627-15-08 09:10:0045[facility] HgvlbelCHLNFK6798-14-92 09:10:0070[facility] HermannSPECIAL DBLSSXFAW1464-33-33 09:10:005.7[facility] HermannCARDIAC RWMMKVK7650-46-10 22:04:0066[facility] CHEM FCFAM2089-24-61 22:04:0038[facility]annCHEM JISFB6478-16-88 22:04:0020 [facility]annCHEM XOSCZ4160-41-50 22:04:55928Qndxzceh HermannCHEM PANEL 2015-02-02 22:04:0016[facility]annCHEM PRPGT2747-95-47 22:04:000.7[facility]annCHEM WGSMG9492-37-79 22:04:003.4[facility]annCHEM ZIVIL9936-00-32 22:04:23535Ewitlfnv HermannCHEM GVTWX3190-95-52 22:04:003.4[facility] HermannCHEM WRKCP8540-84-50 22:04:008.3[facility]annCHEM FYSVN5684-16-99 22:04:0025 [facility]annCHEM XSVRY6358-98-97 22:04:008.7[facility] HermannCHEM PANEL 2015-02-02 22:04:0013[facility] HermannCHEM HWXWK2299-21-03 22:04:44651Yglftxej HermannCHEM BYOUJ4635-05-96 22:04:001.9[facility] HermannCHEM KTTVT8870-94-48 22:04:07393Bvpepnrl HermannCHEM OCQIK3387-30-88 22:04:000.7[facility] HermannCHEM UTCQY6210-96-46 22:04:007[facility]annCHEM YSFQD3692-36-94 22:04:004.9 [facility]annCHEM KZSBP5122-69-69 22:04:0010.4[facility] HermannHEMATOLOGY 2015-02-02 22:04:0016.8[facility] WgxepadHDMCUGDTRB8992-16-46 22:04:57522Ovosedpp VclvolxZEKNVYMBMI3380-08-07 22:04:008.2[facility] QvswzceVLBBRCJLFV9241-82-43 22:04:005.1[facility] YadpxixIJWEDLXDDE2705-32-75 22:04:0011.3[facility] UDCBFOXFBD8758-48-67 22:04:0036.3[facility] BdfoegrRVTBBROJIH8544-62-63 22:04:00 31.2[facility] MzcylsvPFWJMJEQMS5638-25-93 22:04:004.04[facility] HermannHEMATOLOGY 2015-02-02 22:04:0089.8[facility] ShwufkrZDTVXXERHW0514-47-39 22:04:00 Test Item Value Reference Range Interpretation Comments MCH (test code = MCH) 28.0 pg 27.0-31.0 [facility] UaztkexALFEABCRNU8523-81-60 22:04:003.3[facility] HermannHEMATOLOGY 2015-02-02 22:04:000.6[facility] LhhjkswHIVDATBVKL7604-89-45 22:04:000.4[facility] GdnmxirTOFOIVPRHG2275-50-13 22:04:000.0[facility] SrwebueXIDYOKIFEE6281-86-41 22:04:0065.9[facility] GuktbjgSTBYQLCAVC5020-51-17 22:04:003.3[facility] LYRPONNTLZ1120-67-46 22:04:007.0[facility] TwvmuqbCASJMDPSDF6685-26-73 22:04:001.2 [facility] TgffnjnWWIBWUUSEB1007-84-23 22:04:000.2[facility] HermannHEMATOLOGY 2015-02-02 22:04:0023.2[facility] HermannCARDIAC LTGVCPV7106-73-27 03:14:22553 [facility] IqarttaBUEHTEQHCI2327-64-63 03:14:001.01[facility] HermannHEMATOLOGY 2014-07-07 03:14:00 Test Item Value Reference Range Interpretation Comments PTT (test code = PTT) 27.2 s 22.9-35.8 [facility] HecauaiCIAUPTJMYH0619-94-28 03:14:00 Test Item Value Reference Range Interpretation Comments PT (test code = PT) 13.3 s 12.0-14.7 [facility]annCARDIAC HIVCZHO9198-74-47 02:57:000.8[facility]annCARDIAC SMTLGHB1496-41-38 02:57:30311Xvnljrlv HermannCARDIAC DXIYHMJ8017-29-90 02:57:00 1.0[facility]annCARDIAC CCUNIRV5831-29-28 02:57:000.28[facility]annCHEM YNYYS1659-98-13 02:57:0034[facility]annCHEM SSGHI5189-81-24 02:57:32712 [facility]annCHEM UPXTX5025-09-12 02:57:0030[facility]annCHEM PANEL 2014-07-07 02:57:0077[facility]annCHEM SHTSQ4784-51-94 02:57:003.7[facility]annCHEM MFEJG7952-16-05 02:57:0018[facility]annCHEM VDQWC2668-89-83 02:57:0018[facility]annCHEM QNQNN7839-82-63 02:57:008.5[facility]annCHEM GBSGE7430-46-08 02:57:008.0[facility]annCHEM IEEMH9434-15-87 02:57:0010.1 [facility]annCHEM HENAG7597-96-82 02:57:000.4[facility]annCHEM PANEL 2014-07-07 02:57:004.3[facility]annCHEM LCOEL8831-42-99 02:57:0021[facility]annCHEM HLBVA2722-42-69 02:57:000.9[facility]annCHEM BSNPO7891-72-03 02:57:62272Vkljaumm HermannCHEM BPFBF2185-16-31 02:57:0044[facility]annCHEM DXGUO8206-87-71 02:57:93286Ascscjpt HermannCHEM CSOCN6507-33-28 02:57:002.1 [facility]annCHEM CSISE7101-88-97 02:57:004.1[facility] HermannHEMATOLOGY 2014-07-07 02:42:000.4[facility] SoiyituKFATRTIRVN0474-36-97 02:42:000.2[facility] EsoafdxWOEIFHVYUW7033-46-68 02:42:000.0[facility] CynoqgaENKRXULRRM9615-00-58 02:42:006.4[facility] IefqwrmNRWVFRDRLO4104-60-25 02:42:002.6[facility] PSDCMCIRTZ0900-03-93 02:42:000.3[facility] VgyuehbBNRFXHMNYI1465-82-50 02:42:004.5 [facility] JoroipjXGRKUYWNAQ7207-38-26 02:42:001.5[facility]annHEMATOLOGY 2014-07-07 02:42:0068.3[facility] JjkwayeLSNQVATDEQ7199-83-05 02:42:0022.4[facility] QuokedoRZZJKZPYOT0235-50-57 02:42:0033.7[facility] XazmwdyDXMEXGHGYK8188-56-35 02:42:0035.8[facility] UloxiavKYFEIPVPIQ1023-17-32 02:42:0080.3[facility] AGRBOACOCQ4486-63-22 02:42:00 Test Item Value Reference Range Interpretation Comments MCH (test code = MCH) 28.7 pg 27.0-31.0 [facility] AuskrjxMMSAVBBRVP1178-34-30 02:42:24117Uaalqnws HermannHEMATOLOGY 2014-07-07 02:42:0010.1[facility] EwkkdzcKINTESJGOF8340-29-40 02:42:0018.6[facility] ZyagdulBTJODDKSOW4804-78-41 02:42:004.19[facility] FuihuabCUWPOPQTQX9680-50-92 02:42:0012.0[facility] RrruzvcNIMRSWSKPT9949-24-05 02:42:006.5[facility] HermannCHEM DYCDQ8900-09-06 12:54:0034[facility]annCHEM GMZQH0563-34-16 12:54:0024 [facility]annCHEM EHVYI2271-79-21 12:54:26522Lpzqyppk HermannCHEM PANEL 2014-04-02 12:54:004.2[facility]annCHEM DDYCP6036-19-16 12:54:001.24[facility]annCHEM PMEXQ0868-75-06 12:54:21029Mnyrapmx HermannCHEM THAEH3057-79-34 12:54:002.1[facility]annCHEM HNTXJ2931-99-75 12:54:0011.2[facility]annCHEM IJMYJ8342-47-46 12:54:0028[facility]annCHEM GJXLO2226-03-80 12:54:13838 [facility]annCHEM SEOEW0161-40-81 12:54:0021.0[facility]annCHEM PANEL 2014-04-02 12:54:0033.0[facility]annBLOOD BANK QJWMFPL8629-76-70 17:25:00 Negative (03/30/14 11:25 AM)[facility]annBL[facility]OD BANK KRNAQZE9943-41-42 17:25:00Product available (03/30/14 11:25 AM)[facility] HermannELECTROLYTES 2014-03-30 17:25:0010.7[facility] VwhgyusTWSCKZNRVGHQ1619-69-61 17:25:0034[facility] ScrtnjqNHHHATUJBCKR6965-26-30 17:25:15505Rcgwsosq BtmacmvXFMLUDKOEIXC2808-64-22 17:25:002.1[facility] UvbbvrsQYMQDPIBMVED8383-88-97 17:25:0034[facility] ESVADLDNDLST3671-50-23 17:25:003.7[facility] PhdrmkhNJWHQFNKFXXA4276-65-91 17:25:0030[facility] TvafpngHOSAIFTVVIBH6873-68-58 17:25:35395Amrjmeuu [facility]el LJGTUKZYWOKH2385-98-48 17:25:008.6[facility] RlkvyjjGOVBWFOILQZC4682-43-87 17:25:0088[facility] AqbrxsyZPNZCHLJDG6883-96-77 17:25:00 Test Item Value Reference Range Interpretation Comments PTT (test code = PTT) 27.7 s 22.9-35.8 [facility] FzrjbygNYAEFQRDPQ2985-62-72 17:25:003.57[facility] HermannHEMATOLOGY 2014-03-30 17:25:004.9[facility] PtolcfbFCBPWVWCEE2800-32-81 17:25:0030.9[facility] KhhgmdvPLHOMZMTMD0695-11-24 17:25:0010.1[facility] NvcjbeaFTZRDYLKBT2316-92-47 17:25:00 Test Item Value Reference Range Interpretation Comments MCH (test code = MCH) 28.2 pg 27.0-31.0 [facility] NrsudroVRBFZXQDKD3547-28-81 17:25:0086.5[facility]annHEMATOLOGY 2014-03-30 17:25:0032.6[facility] TnbipiyJMCCNZGTFE9235-30-75 17:25:0018.3[facility] WtughloFLEILSKAWC7597-17-35 17:25:009.1[facility] EpommntLYKRBRFQGU8502-19-27 17:25:50026Uxjpuczl CkmsjcxRILUZVQCZO1778-84-58 17:25:003.5[facility] AFWSJYVINT0420-06-27 17:25:005.1[facility] AvjcopnWXPXPWJAEI3701-53-30 17:25:001.2 [facility] PayattlBNCACRZWWH4475-49-73 17:25:003.3[facility] HermannHEMATOLOGY 2014-03-30 17:25:000.2[facility] EjtlytrFKPNNXTIEX6585-11-92 17:25:0023.7[facility] BjzuklyHDVEUZDVEI4435-01-78 17:25:0067.4[facility] HmxqztsJCKXOCQPYI4708-13-80 17:25:000.3[facility] OnjwmuwIIKIZSXQAD1538-39-11 17:25:000.3[facility] SADTQOHZTK0481-13-35 17:25:000.0[facility] SffdarjPJRGYGEMLK0220-22-29 17:25:00 Normal (03/30/14 11:25 AM)[facility] OuhyzoaCRJFRRCQSG5009-21-58 17:25:00Normal (03/30/14 11:25 AM)[facility] FvrvyiwQCFHRSCQVM1233-47-13 17:25:001.08[facility] AunpmxsIAWQIXXLUX6979-66-36 17:25:00 Test Item Value Reference Range Interpretation Comments PT (test code = PT) 14.1 s 12.0-14.7 [facility] IvwpiavGEBSTRKEZMGA9479-29-18 10:15:0010.4[facility] HermannELECTROLYTES 2014-03-05 10:15:0038[facility] RichcrhZIEYDDCYKWYL5650-99-63 10:15:0031[facility] HvdsfwpRVMPWTFNJHML9899-92-79 10:15:008.4[facility] AqoskbyQMANRGFKEMIW3764-51-33 10:15:04461Oyehtmuc DvnzvesXQRMIXTVVZVX5887-12-50 10:15:003.4[facility] TMQSWTWUEMKG3158-43-94 10:15:97535Lsdxatsl BdvriptWAQUWCIPNUQR8191-76-18 10:15:0013[facility] KlcetigTRDYBZGPQMQA7712-95-57 10:15:001.9[facility] XPOTEHRUVOXL4220-89-40 10:15:0080[facility] SjxxxzsXNZADAWHLK1983-11-67 10:15:00 6.9[facility] BrzmhfgEEYRLXZSJY6329-49-80 10:15:000.8[facility] HermannHEMATOLOGY 2014-03-05 10:15:003.8[facility] TrmpqekSMEWAUFNEI4898-81-23 10:15:000.4[facility] PtvokhnDRVJPWGQQM0954-87-37 10:15:000.2[facility] KkoziskTCBRSCPQCU3214-94-42 10:15:0023.4[facility] AetefqhKFWFZSMKOH7870-84-61 10:15:0065.1[facility] UPCOPKNTGU0598-67-21 10:15:001.3[facility] LsxbijqPZNXRSYVWI9511-51-38 10:15:003.7 [facility] HevonjaRECMZTRGOO6588-32-46 10:15:0032.3[facility] HermannHEMATOLOGY 2014-03-05 10:15:0016.7[facility] RehouppPNUEAIOURQ0597-60-14 10:15:0093[facility] NizayjwFVXTMULPDE8935-54-04 10:15:009.2[facility] LwbfioyPTCYEANUWL4569-02-55 10:15:00 Test Item Value Reference Range Interpretation Comments MCH (test code = MCH) 29.2 pg 27.0-31.0 [facility] ThxherhUXPDWXMRHF9201-25-62 10:15:005.7[facility] HermannHEMATOLOGY 2014-03-05 10:15:0090.6[facility] RmiaijkIZDNOGEQEO7214-45-97 10:15:0034.5[facility] VhipijsMFEECFNAJE8398-97-01 10:15:003.81[facility] TwwyqkiYMOYIEJAZD2009-69-19 10:15:0011.1[facility] BmhqrflVAKTHNOODH4042-00-37 19:39:00<0.2[facility] MCGPOVHKLL0442-06-61 19:39:00<0.2[facility] RajyorvDLHZXFARFR2903-11-90 19:39:00Negative (03/04/14 2:39 PM)[facility] DslxsycNACWWZDHDA4555-92-52 19:39:00 <0.2[facility] PnrmlvtBPGMSGWJHY6206-24-96 19:39:00<0.2[facility] PSPIWDMWNY3501-77-70 19:39:001:40 *ABN*(03/04/14 2:39 PM)[facility] YQINGCMLDC4309-01-77 19:39:00<10[facility] UvalsvuGZKVCRZLIQ0580-16-53 19:39:00 Positive *ABN*(03/04/14 2:39 PM)[facility] HermannSPECIAL JAIJAEZBZ0445-16-28 19:39:0019[facility] HermannTHYROID IOQLN7390-22-41 19:39:004.580[facility] CHEM AGXMW4774-60-95 10:10:89081Jzgpltlv HermannCHEM VZKGO6335-16-85 10:10:003.5 [facility] HermannCHEM OHAHA4134-47-33 10:10:27828Runfrgez HermannCHEM PANEL 2014-03-04 10:10:0029[facility] HermannCHEM HTIBQ5253-48-00 10:10:001.7[facility] HermannCHEM YIUBL4388-63-16 10:10:0012[facility] HermannCHEM CFSJS0047-99-67 10:10:0084[facility] HermannCHEM VFFOX3937-88-15 10:10:0010.5[facility] ZNCWUEQZIK0440-86-69 10:10:001.4[facility] DxpmqdkXYQSXNKJGI4216-62-97 10:10:004.3 [facility] NdikgoiXIQCSZKLCJ6192-92-71 10:10:000.7[facility] HermannHEMATOLOGY 2014-03-04 10:10:004.0[facility] WazjtgpILMPHZGQCC1493-23-63 10:10:000.3[facility] UxyphbyBKWZWIHLKD4038-97-33 10:10:000.4[facility] HmesflwPFGNQCAIQA1592-35-22 10:10:005.7[facility] CbbszonZDSOHSVSCE8160-25-79 10:10:0022.2[facility] FUJDAVQENX9340-46-91 10:10:0067.4[facility] XcscxulLVXODTCBNT5639-29-87 10:10:00 10.4[facility] GrecnebMGTZMPHCZO9101-32-30 10:10:003.50[facility] HermannHEMATOLOGY 2014-03-04 10:10:006.3[facility] JibbetqSNXYPFRIRR1209-10-98 10:10:0032.9[facility] MfflqjmMRNBTWCIXW6687-48-60 10:10:0083[facility] IzhjicyISPXLLMGDR0504-57-90 10:10:0016.4[facility] CbffrsxUYICDUBQBI3722-26-46 10:10:008.8[facility] JNLFWOUPLO6396-41-07 10:10:00 Test Item Value Reference Range Interpretation Comments MCH (test code = MCH) 29.5 pg 27.0-31.0 [facility] XutijyhPJCIGHFBAK1644-61-42 10:10:0089.7[facility] HermannHEMATOLOGY 2014-03-04 10:10:0031.4[facility] HermannCHEM ZZIMT7973-11-22 10:10:0044[facility]annCHEM QKGYF5868-93-57 10:10:008.3[facility] HermannCHEM NIXAF4545-08-04 11:05:0044[facility]annCHEM GMNPU8846-73-05 11:05:0030[facility]annCHEM WDXAZ3185-66-97 11:05:008.5[facility]annCHEM OYERT4911-39-95 11:05:001.7 [facility]annCHEM OXNTX1659-83-72 11:05:0013[facility]annCHEM PANEL 2014-03-03 11:05:0090[facility]annCHEM OTZWH0648-87-24 11:05:88181Ilpdlavt HermannCHEM NCIVP0532-82-51 11:05:003.6[facility]annCHEM YJCAJ2617-68-82 11:05:91456Vmgqodmz HermannCHEM GJNHM9334-12-37 11:05:0010.6[facility] MPTZGTHVAO0266-64-94 11:05:009.3[facility] LqzvwqmQAZWIPUQGG9714-59-99 11:05:00 3.54[facility] PlfkdmkJOARCYBDOI8748-13-39 11:05:006.2[facility] HermannHEMATOLOGY 2014-03-03 11:05:0010.4[facility] MvqvjjrNDRSSMJKIU9476-56-42 11:05:0032.0[facility] GcowigqTRECKYVUVS3438-09-66 11:05:0090.5[facility] HcsnnuhAATGJVGVGS1963-63-32 11:05:00 Test Item Value Reference Range Interpretation Comments MCH (test code = MCH) 29.4 pg 27.0-31.0 [facility] XpeeatmOEUCFNKVSP6404-78-47 11:05:0017.2[facility]annHEMATOLOGY 2014-03-03 11:05:0032.5[facility] GydqgnrSLFHTLEYXF0940-81-54 11:05:28264Kqkdjuzw RgnlkkzUQZAASKDJJ1931-38-23 11:05:000.0[facility] JelqsbtGKWEBHTFJE7683-83-08 11:05:000.3[facility] TfmsuheGEELHQKGTP6679-94-42 11:05:001.3[facility] TJJRLQLHOZ2603-68-89 11:05:004.2[facility] KulahyuIMWWWCKGNK9947-10-51 11:05:000.3 [facility] QsblriyNQFOJLOEAS8809-75-66 11:05:000.3[facility] HermannHEMATOLOGY 2014-03-03 11:05:005.4[facility] HjuqvckPCNSJSEOIY2837-79-61 11:05:005.2[facility] BfmcgdgNOSYGKHUXA8622-49-95 11:05:0020.6[facility] LrxlbjpDIEZOCOEZL8688-59-63 11:05:0068.5[facility] ThtiwtgNYRGJNHDOR3450-35-27 12:19:000.0[facility] [place] ANEMIA LSOQA3680-83-89 10:35:42642Fzwvrcnl HermannANEMIA RBRWD0026-53-12 10:35:0044[facility] HermannANEMIA TCUWL4969-44-90 10:35:54089Ddsifibc Noel ANEMIA ZZZHP5797-09-67 10:35:0017[facility] HermannANEMIA TFQRU6178-43-14 10:35:00 89[facility] HermannCARDIAC TXLSFVR7680-40-94 10:35:11214Engtsssn HermannCHEM IRIQX0438-78-45 10:35:002.0[facility] HermannCHEM MSXUD9878-62-36 10:10:001.7 [facility] TzdwopvLRZZPWKNHV7362-58-93 10:10:000.0[facility] HermannCHEM PANEL 2014-02-27 09:30:001.4[facility] LwyvwvyPMJSPS1157-45-26 09:30:001.89[facility] PaiatanQYBQUM6533-74-14 09:30:0023[facility] ZggyqgkIRCVPR9677-21-84 09:30:0037 [facility] HcknrgkRZIACW0307-77-45 09:30:0070[facility] JqcpxdlACZWWF1169-61-59 09:30:0050[facility] DojednePOBBKW4489-39-64 09:30:0010[facility] HermannVIRAL - VYCNTZZF0668-85-18 23:00:46Negative 12(02/26/14 6:00 PM)[facility]annVIRAL - JNZZWAOD5216-77-66 23:00:46Negative (02/26/14 6:00 PM)[facility] HermannBACTERIAL - WIBQQFUW5661-69-85 22:25:00Negative (02/26/14 5:25 PM)[facility]annCARDIAC WETXLEI2238-25-09 18:30:000.46[facility] HermannCARDIAC QQKXNDE1748-77-07 18:30:00 74[facility]annCARDIAC QVVGRRY1721-67-87 08:15:000.37[facility]annCARDIAC QDQRRQS9812-46-23 08:15:51632Veptrbcl HermannCARDIAC MIVNAYH8196-38-91 08:15:00 1.6[facility]annCARDIAC WAMDPTN1080-26-55 08:15:001.6[facility] HermannCHEM YBXAD9206-57-59 08:15:000.9[facility] HermannCHEM REDJX6935-56-06 08:15:009 [facility]annCHEM LWOVW5491-70-91 08:15:003.7[facility] HermannCHEM PANEL 2014-02-26 08:15:0013[facility] HermannCHEM CFSLH1971-22-95 08:15:0020[facility]annCHEM QNIHL0278-59-38 08:15:0070[facility]annCHEM LKBAP4079-32-39 08:15:000.8[facility]annCHEM RATQC2339-50-63 08:15:006.9[facility]annCHEM OBBCA4727-48-19 08:15:003.2[facility] HermannCARDIAC VBSXBRT0166-11-51 02:31:47016 [facility]annUR[facility] AND EAMFI6832-15-01 02:10:00None Seen (02/25/14 9:10 PM) [facility] HSXYQ0427-27-88 02:10:00None Seen (02/25/14 9:10 PM) [facility] UDIDA4773-05-54 02:10:00Yellow *NA*(02/25/14 9:10 PM) [facility] PGCRC5047-03-08 02:10:00Negative (02/25/14 9:10 PM) [facility] QEVKW2889-51-20 02:10:00Negative (02/25/14 9:10 PM) [facility] TYBTZ5096-72-22 02:10:00Negative (02/25/14 9:10 PM) [facility] FRREB4648-95-65 02:10:00Negative *NA*(02/25/14 9:10 PM)[facility] JPDMX1076-53-14 02:10:00Negative *NA*(02/25/14 9:10 PM)[facility] DGIOS9586-07-91 02:10:00Small *ABN*(02/25/14 9:10 PM)[facility] XIPCQ4540-53-90 02:10:000.2[facility]UR[facility] AND MYBNZ6631-25-10 02:10:00Clear (02/25/14 9:10 PM)[facility] AND ZZNWG0606-81-35 02:10:00 Test Item Value Reference Range Interpretation Comments UA Spec Grav (test code = UA Spec 1.015 1 Grav) [facility] LMDFY0956-13-64 02:10:00 Test Item Value Reference Range Interpretation Comments UA pH (test code = UA pH) 5.5 1 5.0-8.0 [facility] FVSJO5038-11-20 02:10:00Negative (02/25/14 9:10 PM) [facility]annCARDIAC MRONMPA2059-26-58 00:50:001.9[facility] HermannCARDIAC GMTLVTI6055-55-92 00:50:000.38[facility] HermannCARDIAC VBSQZBQ5301-11-72 00:50:00 100[facility]annCARDIAC NGIEQZL2654-18-57 00:50:001.9[facility] HermannCHEM NBPKV7027-17-50 00:50:007.4[facility]annCHEM RYJVF8225-32-75 00:50:000.6 [facility]annCHEM SEXIV8570-85-61 00:50:0077[facility] HermannCHEM PANEL 2014-02-26 00:50:0013[facility] HermannCHEM VANBG2729-75-97 00:50:0015[facility] HermannCHEM QXJIP2672-22-39 00:50:003.2[facility]annCHEM QGCKA0125-51-26 00:50:004.2[facility]annCHEM IMQMI2073-23-58 00:50:000.8[facility]annCHEM BTYUD0864-74-00 00:50:009[facility] BfysffgFFVGKSJHWN0549-76-83 00:50:000.81 [facility] KejwttaGCJJAWGATI1092-62-73 00:50:00 Test Item Value Reference Range Interpretation Comments PTT (test code = PTT) 42.2 s 22.9-35.8 [facility] MavusdgNODILUZUYF5453-01-33 00:50:001.36[facility] HermannHEMATOLOGY 2014-02-26 00:50:00 Test Item Value Reference Range Interpretation Comments PT (test code = PT) 16.9 s 12.0-14.7 [facility]annCHEM PWTXK2304-65-17 10:30:0038[facility] HermannCHEM PANEL 2014-01-28 10:30:008.6[facility] HermannCHEM UCUWH8036-31-04 10:30:0013.1[facility]annCHEM NDBEE4788-13-70 10:30:0028[facility] HermannCHEM YWMUK7345-81-08 10:30:0024[facility]annCHEM YCDTV5622-22-69 10:30:0099[facility]annCHEM DOSSU1050-79-55 10:30:13060Monovcjc HermannCHEM RPHUF4737-88-92 10:30:004.1 [facility]annCHEM FVJRQ6265-01-54 10:30:21064Bpyotcpz HermannCHEM PANEL 2014-01-28 10:30:001.7[facility] HermannCHEM PMTCC5604-13-17 10:30:002.1[facility]annCHEM UNEQY7357-23-42 10:30:002.6[facility] MjcjyywHFOBDGNUEN0400-16-14 10:30:005.0[facility] UahoczdFAPQIKKUZY1571-01-40 10:30:000.4[facility] HMBLALMAZS5027-07-74 10:30:000.1[facility] CmhuzwtNDIHCTCPSU3454-56-58 10:30:000.5 [facility] AmzncuaIHYTHAHRUD3096-28-70 10:30:001.8[facility]annHEMATOLOGY 2014-01-28 10:30:0024.7[facility] EnysavuBUQGLYHTAF3597-44-47 10:30:0066.4[facility] DtrifusQXASQSXXSY3324-97-88 10:30:001.7[facility] RjotsmlYVGWFJPBBQ1200-05-19 10:30:006.8[facility] KtxanytBZFSVDMIWW6128-27-19 10:30:0010.3[facility] MJWZRWKKEZ7624-95-46 10:30:0079[facility] IxzfxehVDYGXXMELC4833-95-37 10:30:0011.3 [facility] AlzrscvYGLDBBMLXV0440-68-03 10:30:007.5[facility] HermannHEMATOLOGY 2014-01-28 10:30:003.84[facility] FofdkjxANXJOAEZWO4972-93-22 10:30:0014.1[facility] ZqiwezrFEPEXYONBA1263-89-09 10:30:0034.2[facility] VrepvooDCPSGWNHRD6768-06-74 10:30:0089.0[facility] MtgrjnyVXZCFUKZBC9807-39-27 10:30:00 Test Item Value Reference Range Interpretation Comments MCH (test code = MCH) 29.3 pg 27.0-31.0 [facility] CmuqbxrHQJIXEXNNE0123-45-91 10:30:0032.9[facility] HermannCHEM PANEL 2014-01-27 19:10:002.0[facility] HermannCHEM OGHNV6266-42-84 19:10:0035[facility]annCHEM RMQFY1670-09-99 19:10:008.3[facility]annCHEM ATXYF6312-69-09 19:10:0029[facility]annCHEM SXAUK5880-82-29 19:10:008.3[facility]annCHEM YXRYG0575-05-04 19:10:30235Cherjczi HermannCHEM IJEVV0045-08-09 19:10:004.3 [facility]annCHEM GYXJW5993-09-03 19:10:21241Agumsmmo HermannCHEM PANEL 2014-01-27 19:10:0026[facility]annCHEM CDKSN8350-60-33 19:10:001.8[facility] HermannCHEM ARDFT5336-17-31 19:10:82212Bhqtreio HermannCHEM EFSDX0047-30-29 10:00:001.5[facility] LyqpbsuUBOHFOOXRTEW4824-29-05 10:00:0011.4[facility] ZZASSFKVMMGP7183-35-18 10:00:0035[facility] NovakkyAEFMSXGXSLCR1801-62-38 10:00:00 104[facility] EmurjzxGNFQGQOUXRIS6051-11-15 10:00:004.4[facility] QNLZFWVNBWTG2626-84-47 10:00:37109Tdekfzzp OeibbnmRGJZHJDMLBDM3947-70-17 10:00:001.8[facility] NpctowrNREMOKNXGGDA1648-78-91 10:00:008.6[facility] EQZXUSWKOTQU1941-41-29 10:00:0028[facility] SurmqnsBXXFVKUADXOQ5960-26-67 10:00:00 26[facility] SwsxmsjSOFNHJDBMEGB5430-22-07 10:00:80426Dpvzvddw HermannHEMATOLOGY 2014-01-27 10:00:00 Test Item Value Reference Range Interpretation Comments MCH (test code = MCH) 28.8 pg 27.0-31.0 [facility] EtxopmwBWSJHGIWAE9310-52-52 10:00:0032.0[facility]annHEMATOLOGY 2014-01-27 10:00:0014.2[facility] RysekonNBYXUVEKZK8720-04-22 10:00:009.8[facility] DufgnpbDCNUEDDGNM6770-31-39 10:00:0071[facility] JbhwrwoWZBFNJDPRB2028-89-25 10:00:004.06[facility] QiqmhdgCKTDAELBYC3633-24-82 10:00:006.2[facility] ZNYSWBTZYZ5788-03-14 10:00:0036.5[facility] OcvvgjjXBIKXURPTM2114-96-97 10:00:00 90.0[facility] YgaebboGQYFHMDBTA2265-31-58 10:00:0011.7[facility]annHEMATOLOGY 2014-01-27 10:00:001.6[facility] ZlvjnmfZRIZFUADPY4906-12-86 10:00:004.2[facility] BehyhllGYNNLREDBR3744-26-99 10:00:000.3[facility] HozjwprMVXAIOEIAO5492-86-86 10:00:000.1[facility] UhpryztJDPZPFMKAL6270-66-92 10:00:000.2[facility] SKSKVDBNSL8594-15-86 10:00:000.0[facility] FarawagZSWCGFUBFP8175-98-07 10:00:00 26.0[facility] QgxyqkuOHLLJFOLCH9182-89-44 10:00:0068.2[facility] HermannHEMATOLOGY 2014-01-27 10:00:001.5[facility] BdfxxmbQGIKWSYPRL9373-47-59 10:00:004.0[facility] WrlosytONOFZN6720-11-29 10:00:003.36[facility] KbhkwdsNSHUAH0799-80-59 10:00:0023 [facility] YuvfiiiVLASPX0832-33-05 10:00:0069[facility] MjubrjmSEQLXX5795-07-65 10:00:0039[facility] WyvtohfRJLZRT5545-74-38 10:00:39803Sbefoddj HermannLIPIDS 2014-01-27 10:00:94119Dsyjtlnm JebfmftINELJIOBBN2831-62-61 10:00:001.2[facility]annURINE AND GBSUK7459-54-01 14:15:00<=1.0[facility]annUR[facility] AND STOOL 2014-01-26 14:15:00<1[facility] AND VXBBN0812-59-97 14:15:001.005 [facility] HQKNL8202-61-15 14:15:00Clear (01/26/14 9:15 AM) [facility] DSCBC7122-51-69 14:15:00Colorless *NA*(01/26/14 9:15 AM)[facility] ZIJHN9837-61-38 14:15:007.0[facility] GDOID9567-63-59 14:15:00Negative (01/26/14 9:15 AM)[facility] SQBKB8224-50-94 14:15:00Negative (01/26/14 9:15 AM)[facility] HELCG3966-74-92 14:15:00Negative *NA*(01/26/14 9:15 AM)[facility] DHJRK5869-41-37 14:15:00Negative (01/26/14 9:15 AM)[facility] HermannANEMIA STUDY 2014-01-26 14:00:0010.9[facility] HermannANEMIA FNEYS0476-88-10 14:00:10519 [facility]annCARDIAC CRTILTI4260-92-23 14:00:15908Helgyiez HermannCARDIAC KZXHRHQ4747-85-46 14:00:000.28[facility] HermannCARDIAC SOFOKZU0199-09-40 14:00:00 88[facility] HermannCARDIAC PWUONRK3619-78-53 14:00:003.0[facility] HermannCARDIAC ULHRARY0666-96-01 14:00:002.6[facility] HermannCHEM VEPYG0611-46-81 14:00:002.6 [facility] HermannCHEM WDUTC6650-55-86 14:00:000.5[facility] HermannCHEM PANEL 2014-01-26 14:00:000.9[facility] HermannCHEM GDKAO2389-42-35 14:00:004.1[facility] HermannCHEM ZXQQE6946-15-68 14:00:000.7[facility] HermannCHEM RRXJF6038-02-83 14:00:000.2[facility] HermannCHEM IXWVS4980-53-06 14:00:0015[facility] HermannCHEM MLWBC1606-54-84 14:00:0078[facility] HermannCHEM EDPEQ4645-49-92 14:00:007.6 [facility]annCHEM WPPRW4644-19-66 14:00:003.5[facility] HermannCHEM PANEL 2014-01-26 14:00:0017[facility] HmehkcsQKCSZLTQKL3132-75-92 14:00:0084[facility] KctbubgQACJBNMFKB6840-21-64 14:00:009.8[facility] LvyhojxHNPZECCVMW2214-08-14 14:00:006.6[facility] TxhuqyiAXFGODEOQU3703-79-99 14:00:00 Test Item Value Reference Range Interpretation Comments MCH (test code = MCH) 29.2 pg 27.0-31.0 [facility] OwcvbsdIRTVWOAADP1087-96-08 14:00:0032.7[facility] HermannHEMATOLOGY 2014-01-26 14:00:0014.3[facility] FdilxyuMEBCIVVZFT1906-35-31 14:00:0089.2[facility] EshxezfDORGGWVDIT7687-42-51 14:00:0013.2[facility] BfjczmcNADLSGSUHM7018-77-13 14:00:0040.4[facility] XfmdlleLNEEBOSJRX9965-88-85 14:00:004.53[facility] JTZYKOIHMO6687-07-51 14:00:001.23[facility] OpzijvjDNIUMQQWVC9529-47-59 14:00:00 Test Item Value Reference Range Interpretation Comments PT (test code = PT) 15.6 s 12.0-14.7 [facility] WkhsaluNVXTLRODXZ2936-28-69 14:00:001.6[facility] HermannHEMATOLOGY 2014-01-26 14:00:004.6[facility] BjbmbnsZNIFEDORMU8913-14-20 14:00:004.4[facility] FyjbiuqUNQABBZFRW9764-78-79 14:00:000.7[facility] YenurwnJTAKWSTWWS6933-53-62 14:00:000.1[facility] MxqqfodQZQFJCAWBT3884-17-49 14:00:001.8[facility] FHMGHQLSZO0022-33-47 14:00:000.3[facility] YabteiyVIMGDZOLZU0509-95-58 14:00:00 27.2[facility] ThhboamJKTWSFLPYW2941-79-09 14:00:0065.9[facility] HermannTHYROID WOVRR0463-22-32 14:00:002.320[facility] CglzaajJXUNUXBEL5245-22-28 10:30:42266 [facility] BjqnfinQBXEHANQQ9315-07-89 10:30:0084[facility] HermannCHEMISTRY 2012-02-27 10:30:003.8[facility] GbdfpsrSRQEAMPNI8620-93-90 10:30:40541Nrzeagrx EgcvusoFZHWFEMND7201-06-51 10:30:06878Lbywgaum BhysnijPZTGRNAJW0847-03-78 10:30:001.0[facility] TxdhoczHMSICKHDY2879-92-14 10:30:0017[facility] BSDYIRDAN6959-83-88 10:30:0084[facility] ElshjlcLYRZUCIWW3755-27-83 10:30:007.9 [facility] GihwuloAOERAYNDD4424-46-40 10:30:0028[facility] HermannCHEMISTRY 2012-02-27 10:30:0015.8[facility] WnlsnusSVUPEIMCWX2841-03-01 10:30:008.3[facility] GwcwsboOGPPIBWBBQ6244-56-65 10:30:003.1[facility] YycwloiVDIEYBQEEI5470-17-56 10:30:0044.7[facility] PxzmnheQFYLGIGDWR4822-40-45 10:30:0043.6[facility] QQHDQNZNKO8114-49-13 10:30:00Normal (02/27/2012 05:30:00)[facility] DZQAIAZKJJ8310-60-33 10:30:000.0[facility] CxdcpxrQNQXGXRBIK8679-65-71 10:30:000.1 [facility] RxvzzxbHHISWQHRTM4980-31-24 10:30:002.0[facility] HermannHEMATOLOGY 2012-02-27 10:30:000.4[facility] QcmvlwhPDTFVEZIVV3950-06-05 10:30:000.3[facility] CqvxneeUPJLOWUNMP3519-87-97 10:30:002.0[facility] DdqkpcgHUNJIFRQVP3794-70-42 10:30:00Slight *ABN*(02/27/2012 05:30:00)[facility] YugycxjPYEARVSTIZ0479-46-02 10:30:009.9[facility] VtttwdiPFCLXKCQIF5994-89-24 10:30:00 Test Item Value Reference Range Interpretation Comments MCH (test code = MCH) 31.3 pg 27.0-31.0 H [facility] OrfxcbiKPVIAAIWFQ2572-39-73 10:30:0033.7[facility] HermannHEMATOLOGY 2012-02-27 10:30:0014.8[facility] QgskciiKDHRCRWKHI3496-28-27 10:30:0034[facility] TypfpbbPPEHISFPZX7341-52-64 10:30:0092.9[facility] HnyycgoCDIJBYZWQC1712-11-72 10:30:004.6[facility] YcdrgtkSGACVHRVTB7914-83-91 10:30:003.40[facility] XNPJHGMRFD3770-87-56 10:30:0010.6[facility] JmttyzvKOUOUULOMK2477-55-34 10:30:00 31.6[facility] JvqnyvdNWSYOPAFZ6046-99-68 21:40:96406Imucpofv HermannCHEMISTRY 2012-02-26 21:40:003.9[facility] VfdqmupCCASFTBXA6007-36-43 21:40:0011.9[facility] AnepcpqFULRLRWIA5376-89-78 21:40:007.7[facility] YjswoyvHTOUNECBA5613-78-54 21:40:35251Bhbyweii TwtxsmwWPLQZOWSX1484-82-64 21:40:0068[facility] LFJYALAZE3862-27-70 21:40:0026[facility] KxrdpbbUEPPPNBNL5798-91-20 21:40:001.2 [facility] SybmwlrPDZVDVVUH2290-67-54 21:40:51394Fzmamypv HermannCHEMISTRY 2012-02-26 21:40:0099[facility] DouvunvUQJJHANVG1947-77-72 21:40:0031[facility] AvkzxbuBYVJCNYZF8035-91-80 13:56:53379Vxflrthl EsberjvYXTQOPDJJ7135-29-96 13:56:000.11[facility] ShfajjlMAUUCRWEU2281-96-40 13:56:001.5[facility] UWANSNMFT8517-42-49 13:56:001.0[facility] GwpjbjpBKOQIBPXL1611-52-92 10:00:001.3 [facility] OhbagecLESGAZCEV6755-53-04 10:00:003.2[facility] HermannCHEMISTRY 2012-02-26 10:00:000.8[facility] BuggpjnVLMRHVIEB4692-51-30 10:00:0012.5[facility] AzaanqmHQPWNWJKM5847-52-15 10:00:0022[facility] OffraavQMVVEXCCV4971-82-12 10:00:005.8[facility] HabiolhKDEBOBJNP0002-58-45 10:00:0020[facility] IBAHZEKXL6485-10-67 10:00:007.8[facility] AgectmlRTUVQPQSD9149-22-17 10:00:000.6 [facility] IfwttogAWHQCPUZB5733-70-15 10:00:0030[facility] HermannCHEMISTRY 2012-02-26 10:00:0048[facility] TplxyvlORKKEWTUZ4641-52-30 10:00:0036[facility] RhwfajpYXNRFXKJY2945-35-31 10:00:0091[facility] NtkvyrzNBCQUJPUB3119-16-78 10:00:002.6[facility] CdmbxbdYTZQBWUYQ3651-19-94 10:00:0033[facility] CHWHSHOVF5971-36-03 10:00:0015[facility] NpsreheHIWPSSVXF4127-66-07 10:00:003.5 [facility] DrstxjtZMKHVQWHW7904-44-71 10:00:0099[facility] HermannCHEMISTRY 2012-02-26 10:00:001.6[facility] NacftmjKQGWMBMJR9687-39-88 10:00:03520Ybraadzf LjhxchpFIRKCTFHW8604-32-58 10:00:005.6[facility] KwtvcmsAUVJBEAZI5106-78-29 10:00:0041[facility] NxhmcgzIEWQWNLOM6396-21-40 10:00:0039[facility] CEHIEIOCU0278-34-79 10:00:0092[facility] GihqhcnDNARGVZSZ1119-51-77 10:00:0098 [facility] EoubracXMAOCUUPV5736-60-77 10:00:002.51[facility] HermannCHEMISTRY 2012-02-26 10:00:52362Jgpyvodr PufijazSUSAHUNLB4355-93-99 10:00:000.10[facility] TfasqsdWXHCUTHUI1111-88-71 10:00:001.7[facility] ZudtdxzDUVUYZBLD5981-43-50 06:15:000.4[facility] ExbdydyMMHXOHNLL3450-86-44 06:15:53176Aljtscki Noel WNHAOGGLE1791-14-94 06:15:0013[facility] ZmnpmqbTHTFDJLWN9068-41-16 06:15:0042 [facility] FqxwzwzOVMXCDYBB3801-03-35 06:15:001.95[facility] HermannCHEMISTRY 2012-02-26 06:15:0082[facility] YxrirgiWDOHUPKYJ1943-90-25 06:15:80442Lnhmshwz CclpzywGTXRQSGVY0719-16-77 06:15:000.09[facility] VlliixwLLZNKAMYJ2188-40-88 06:15:001.1[facility] HermannBEDSIDE GLUCOSE KXXLQQX8384-56-64 16:28:30700Cfywnzia HermannBEDSIDE GLUCOSE HZNBTKI7782-65-65 11:12:62305Wmjmdtiy HermannBEDSIDE GLUCOSE NRAWKNW6335-04-65 02:31:98260Azociwyi YzkkzonJJTIJBDJN0317-65-40 07:08:0014.5[facility] OxmhqbrZOGKEHJCI3528-63-86 07:08:58225Mysetves Noel FUUVGUWWX2290-61-17 07:08:001.3[facility] QfzhuujPNZPHEUZA2841-21-70 07:08:0025 [facility] OmcqrkaFZYJKZRVH8829-65-92 07:08:45730Apkuhukw HermannCHEMISTRY 2011-12-07 07:08:008.7[facility] SjxmgteISBLSZNLC7480-39-55 07:08:0031[facility] QnhsrvsFGGRDAADG9895-75-79 07:08:004.5[facility] DeftkiaHRUCOVHVR7794-08-03 07:08:68059Beqypmei RyrzxajAKIKGSWUCD0094-56-89 07:08:0013.2[facility] NOZEKZEVBY9538-18-27 07:08:0031.9[facility] LwbpozrEAZETQSPBO2393-60-30 07:08:00 3.40[facility] JjnayphOMZHXIQJNA6587-63-93 07:08:0010.6[facility] HermannHEMATOLOGY 2011-12-07 07:08:0093.7[facility] LangqgfBBPNGVJRPP4746-94-56 07:08:00 Test Item Value Reference Range Interpretation Comments MCH (test code = MCH) 31.1 pg 27.0-31.0 H [facility] OwejiplRFMQLQEFTY9925-89-99 07:08:17865Dapxbpuu HermannHEMATOLOGY 2011-12-07 07:08:0033.2[facility] QrxotzeBVMIYQQQFO1730-33-37 07:08:0017.0[facility] CtlgbgtHYFLNRTBKB4946-32-82 07:08:009.4[facility] SwkmxqjADGEGWNATP7605-67-27 07:08:000.8[facility] BjcustiILHGDFPZWQ6805-37-97 07:08:000.0[facility] SKFQVZJMSC3752-54-56 07:08:000.8[facility] DbwnshgVBIICFGPJW9095-36-87 07:08:000.0 [facility] JnjrqxaQRJKMHLNPJ7762-30-74 07:08:0088.5[facility] HermannHEMATOLOGY 2011-12-07 07:08:005.7[facility] GcgntyrVFJUOJGJFK2928-88-39 07:08:005.8[facility] GcrmhueOWLXPUOQAP1068-65-50 07:08:000.0[facility] TamxplvEOZASIPFKM2863-74-92 07:08:000.0[facility] HpvzcgmNCGIIVWMPL7948-49-39 07:08:0011.7[facility] EDXUDYNBN7174-06-34 05:10:0014.0[facility] LgijemaCWATCOWXQ1916-76-71 05:10:004.0 [facility] LdxinwdKBUCSOQOO5018-93-67 05:10:48920Zcsocbrm HermannCHEMISTRY 2011-12-06 05:10:0028[facility] RxrunpwEJXJXONXT5305-09-73 05:10:56223Mrathcar OddkmglCAGZOIOHT4836-46-20 05:10:008.1[facility] DxudoftGNFUKBHNI2677-56-66 05:10:38308Kpfvfmhs NixgftqCFUJIFXTY4662-97-95 05:10:0028[facility] JEWJMIOLV0146-26-71 05:10:001.3[facility] UglbhmlDOQFBDSKX4324-89-33 05:10:002.1 [facility] DgrgfggJHXCEIGPE1921-47-28 05:10:003.4[facility] HermannCHEMISTRY 2011-12-06 05:10:004.68[facility] BsmuphiJWJPZOLEX6415-56-61 05:10:004.76[facility] CjqbbejPMENPIZJL0486-78-45 05:10:001.17[facility] YlopflfBAOZEHZKR9368-22-84 05:10:001.19[facility] CclgskxSQQKCDUDZJ7497-56-97 05:10:009.4[facility] ADYEOQACPC7224-00-34 05:10:0030.9[facility] ZixohlqEBGXHKCRKO0612-21-22 05:10:00 10.4[facility] KctudgsRZADYDLONM3268-79-15 05:10:0093.8[facility] HermannHEMATOLOGY 2011-12-06 05:10:00 Test Item Value Reference Range Interpretation Comments MCH (test code = MCH) 31.5 pg 27.0-31.0 H [facility] LupiryoCPVBCUHEBP8940-97-74 05:10:53359Jijsfndl HermannHEMATOLOGY 2011-12-06 05:10:0033.5[facility] WsyiwcmARQOVLAKVN6271-33-59 05:10:0016.1[facility] DaxgyhqWBOVBHLPBV2755-24-03 05:10:0011.9[facility] LrjbcdoTASMBNOAMX1720-59-25 05:10:003.30[facility] KwrhaueSWAYUTDDBI0783-06-25 05:10:005.5[facility] FQJVLQAWWA4256-86-33 05:10:005.8[facility] AsiuxmtDMWBTXYZUX0992-33-09 05:10:00 88.6[facility] IfgyulnMFRBBDAHDD3330-86-39 05:10:000.0[facility] HermannHEMATOLOGY 2011-12-06 05:10:000.0[facility] ZatqkjuOMPNKPWQSX1506-15-53 05:10:000.7[facility] GcyrpnrXQQWOGTXVX3242-41-80 05:10:000.1[facility] UxouywbDXIUQGOXMA3440-02-17 05:10:0010.5[facility] VjhjpcdLOBKZOUGHG9849-81-15 05:10:000.0[facility] DZHWHPYLWC7055-85-37 05:10:000.7[facility] LcabbhyXHPIVVRNSL8269-15-87 02:02:91876 [facility] NcqidrvESVSIPLZIR0557-43-51 14:11:00 Test Item Value Reference Range Interpretation Comments PTT (test code = PTT) 24.0 s 22.9-35.8 N [facility] JnbpqnyOTTSJYIACS8262-37-07 14:11:00 Test Item Value Reference Range Interpretation Comments PT (test code = PT) 15.0 s 12.0-14.7 H [facility] OyrnuhmRRQZZCLLBT2415-74-31 14:11:001.18[facility] HermannBACTERIAL - RUZQWJBL0331-46-28 06:58:00Negative 1(12/05/2011 01:58:00)[facility] PQBQEXGHR9289-15-83 06:58:005.04[facility] BzfklvmEECYRSGYF6048-79-67 06:58:005.00 [facility] PkfttmcZWWJJVWSY6305-42-73 06:58:001.26[facility] HermannCHEMISTRY 2011-12-05 06:58:001.25[facility] DrcyixzMITARUWFN2667-45-24 06:58:004.0[facility] AduwredYDCMTAQVR6896-75-91 06:58:001.9[facility] TqqaawcAJFIZZKCC9922-44-09 06:58:009.0[facility] UbqjujqFIHDPHCHE1250-87-03 06:58:0027[facility] OXDJDSXYD2117-80-22 06:58:09267[place]k TymakbmYCLHBCZHV6955-64-10 06:58:64998 [facility] MjloqlpPUYWWLDAI6038-69-02 06:58:37533Rzehzptd HermannCHEMISTRY 2011-12-05 06:58:001.4[facility] FiqclswYQEJXZXOA2850-62-27 06:58:004.1[facility] NaxbxwvKOFDQNRBS0707-78-63 06:58:0024[facility] DsjoozrVXCVDWEAX0442-74-71 06:58:0017.1[facility] TrtlbsiBJDLHHBCNA1649-13-55 06:58:000.0[facility] QMVGLWLVOV6800-38-41 06:58:000.0[facility] OumlovdMSLAXDVHAG0692-42-23 06:58:000.3 [facility] OewuztaVEKKLMHWWM8591-13-27 06:58:003.1[facility] HermannHEMATOLOGY 2011-12-05 06:58:000.7[facility] AyxvbnuDPXIXGLTFW6586-76-14 06:58:009.3[facility] XwstalaSKESOMPWUQ9781-14-34 06:58:000.2[facility] PnixftjHIZSJZNWKH2972-14-36 06:58:000.0[facility] XjezwxmSBONYKONED0132-13-11 06:58:006.5[facility] ALKMFGAEYL6172-16-50 06:58:0090.2[facility] MtiqgcdBGZCAYZYEF6556-00-76 06:58:00 1.15[facility] YsypiabQFAGLJWDJZ9574-99-05 06:58:00 Test Item Value Reference Range Interpretation Comments PT (test code = PT) 14.7 s 12.0-14.7 N [facility] QzrozjzXENXTNDMQQ3332-64-89 06:58:00 Test Item Value Reference Range Interpretation Comments PTT (test code = PTT) 24.4 s 22.9-35.8 N [facility] FuchamoRLTIRRODUY2478-19-70 06:58:0016.1[facility] HermannHEMATOLOGY 2011-12-05 06:58:0032.8[facility] SmzneqfAOHJMCZOPR9599-75-36 06:58:0010.3[facility] VcwabvzQSCJETERKI2550-61-83 06:58:0094.1[facility] CzeyaumEBQDZRXEGH5099-54-54 06:58:0031.7[facility] QjpjmmtUFUAHUUUGF9085-64-17 06:58:00 Test Item Value Reference Range Interpretation Comments MCH (test code = MCH) 30.9 pg 27.0-31.0 N [facility] JutzywzMKNDAKEAOV0950-77-87 06:58:007.9[facility] HermannHEMATOLOGY 2011-12-05 06:58:0010.4[facility] VvpaztdADFQDPSDYT6311-11-34 06:58:003.37[facility] YywurisLRYUOBQCC1632-38-63 03:58:84636Hvrkavqz DtiavblBXZIVTVBV8461-90-90 03:58:57638Fbuusupd FeakrfpRZIEKWYRX3901-57-38 03:58:003.5[facility] EXCTNGUDM0963-26-46 03:58:0033.0[facility] EisqctrHGSMFYTAJ8317-69-67 03:58:00 100.0[facility] GhusxmsBURMHISHD9400-02-25 03:58:001.6[facility] HermannCHEMISTRY 2011-12-05 03:58:001.17[facility] WtiidbtAKGDFRMDG7983-25-28 03:58:004[facility] OiysylnQCYUZXWVZ4290-89-83 03:58:0029[facility] WdkqjoeVAGHXUWKG6873-64-93 03:58:0046[facility] TjlvpofOHEMCDHBZ9415-46-69 03:58:49173Vqepznjh [place] VYKOOAIED5366-50-65 03:58:0037.0[facility] HumtgccOCCXZWTVY0359-40-35 03:58:007.41 [facility] ImidaxaWQQXVVKCW7768-10-50 02:54:79278Aamehdpt HermannCHEMISTRY 2011-12-05 02:54:001.2[facility] WpzjywzPUFWJNMPP9382-67-26 02:54:001.21[facility] HlhbmjfFRYOLCXGG1585-56-12 02:54:004[facility] PegqktdMJNLVQAOG0461-88-91 02:54:00 29[facility] WonleluSQGZDSVON6998-26-34 02:54:92599Fuwuxpyr HermannCHEMISTRY 2011-12-05 02:54:0041[facility] LwmlzzsCEYVFXLAY8032-36-60 02:54:0037.0[facility] YgvwnogJIZLJQWNO4310-21-17 02:54:003.5[facility] QmrhglnVJGMQSFYG3774-04-44 02:54:007.45[facility] OqelonlFABDEXTKC9426-83-88 02:54:08707.0[facility] QVKCNBTPB9240-36-43 02:54:0029.0[facility] EcnxrzlFFHGBJYVG0672-29-19 02:54:41452 [facility] YdadgjxNDRWLRDUQ4455-40-95 02:03:0031.0[facility] HermannCHEMISTRY 2011-12-05 02:03:77865Xxltivsx EwaugzfFJSWQHSUL3069-83-24 02:03:003.4[facility] ZxzcbmxMTVEEWLFJ2218-89-51 02:03:58206Dijfqjzk CsldcmaSICSIFQQB5215-53-78 02:03:001.3[facility] IwwfqckMNHNZEFAI1218-58-88 02:03:009[facility] UJGBJEGOQ6200-81-83 02:03:45599.0[facility] CrqgelaKBXNDOBRA0373-69-36 02:03:00 1.22[facility] JxpicfcPWSRUSKFO1814-90-80 02:03:0037.0[facility] HermannCHEMISTRY 2011-12-05 02:03:0034[facility] WeoaqhsBXTJPHDBF9639-09-82 02:03:007.46[facility] NcwbgqoBBKGORBNK5065-23-36 02:03:0048[facility] PbadonhBTRBTWJTY1944-42-31 02:03:78787Owpxxait MlkisapHWIPZXZZOO9006-03-99 21:00:00 Test Item Value Reference Range Interpretation Comments PTT (test code = PTT) 23.5 s 22.9-35.8 N [facility] ZogmhegRMOZXXFNZC2940-39-00 21:00:00 Test Item Value Reference Range Interpretation Comments PT (test code = PT) 14.0 s 12.0-14.7 N [facility] PdumutjSJSEOEULAR7982-37-31 21:00:001.08[facility]annHEMATOLOGY 2011-12-04 21:00:00Slight (12/04/2011 16:00:00)[facility] HermannHEMATOLOGY 2011-12-04 21:00:00Slight (12/04/2011 16:00:00)[facility] HermannHEMATOLOGY 2011-12-04 21:00:00Slight *ABN*(12/04/2011 16:00:00)[facility] 21:00:00Slight *ABN*(12/04/2011 16:00:00)[facility] 2011-12-04 21:00:00Normal (12/04/2011 16:00:00)[facility] AIEAMYO4281-05-38 05:15:00Negative (12/04/2011 00:15:00)[facility] QZBOQXG9757-07-60 22:56:00Product available (12/03/2011 17:56:00)[facility] BhgalmuGSXYPSDGI2480-38-64 22:42:002.7[facility] MqajpdoIXPDVKOPR2235-03-66 22:42:001.7[facility]annBEDSIDE GLUCOSE JUHVBYV6963-45-06 16:24:87348Ouihahtf HermannBEDSIDE GLUCOSE JLUUIQB9121-59-17 12:31:62321Syikuduw HermannCHEMISTRY 2011-08-28 09:26:001.8[facility] OasdlzyTOXAIXQJZ3481-36-45 09:26:0012[facility] JjjpxiqZCIDFZVXZ0129-89-68 09:26:0036[facility] EuxozouPSNDXQDVI0216-60-19 09:26:000.7[facility] HpmfatdWSNUXXYOB4618-22-50 09:26:009[facility] AHFQUEGMZ0717-20-91 09:26:31397Ddersgpj KexsjitTNBIPQEMK2800-80-92 09:26:003.9 [facility] VxgaswfAABNWIDTH4276-85-07 09:26:0012[facility] HermannCHEMISTRY 2011-08-28 09:26:001.3[facility] IogrkueOLHLWDUSU1283-36-82 09:26:0096[facility] CyljqmqYXBHVEVXL8858-04-65 09:26:008.1[facility] OotsljbUXCVOYRUS8320-86-17 09:26:003.1[facility] DuckriaQHMPHGDFV6277-81-92 09:26:006.9[facility] YYCHCLLCB3202-85-55 09:26:79955Lvehvlxt ZivmuaiNGCXOJMKZ2360-12-51 09:26:0028 [facility] MdisbqeVHIDZWANX5784-18-62 09:26:0013.9[facility] HermannCHEMISTRY 2011-08-28 09:26:009[facility] MasqclpDPDTLUSBH0493-21-94 09:26:003.8[facility] UaqmgzrXNKZJDYDN4543-09-36 09:26:000.8[facility] MruhenySNAQRJVWCT7749-68-66 09:26:00 Test Item Value Reference Range Interpretation Comments MCH (test code = MCH) 30.9 pg 27.0-31.0 N [facility] ZlbdbanWPIKAJTJOO0110-02-20 09:26:0034.1[facility] HermannHEMATOLOGY 2011-08-28 09:26:0034.5[facility] PrevefeSHFBAKJHVG1698-81-92 09:26:0011.8[facility] IboghrlAGJUROFQYY3299-42-87 09:26:006.0[facility] UlfhkrcQKJQLPOIRO9478-50-13 09:26:003.81[facility] NdudiccCDUMCAITXS7682-01-35 09:26:009.0[facility] CUUXTKTSSE0889-99-19 09:26:0090.8[facility] JfavcxpMIGFDQBAKB5360-40-01 09:26:00 13.9[facility] DkjvuvbPUSWAHOIMF6607-44-96 09:26:0060[facility] HermannHEMATOLOGY 2011-08-28 09:26:00 Test Item Value Reference Range Interpretation Comments PTT (test code = PTT) 31.9 s 22.9-35.8 N [facility] TesklqaYMWSXRTZDU6135-90-65 09:26:001.78[facility] HermannHEMATOLOGY 2011-08-28 09:26:00 Test Item Value Reference Range Interpretation Comments PT (test code = PT) 20.6 s 12.0-14.7 H [facility] GnfvcwgNKUWCSHFTS7717-80-98 09:26:001+ *ABN*(08/28/2011 04:26:00) [facility] VwnpcmgCSVBLQHBQW7403-53-86 09:26:00Slight *ABN*(08/28/2011 04:26:00) [facility] YkwyoayWIRDHJRKQX6300-50-52 09:26:000.0[facility] HermannHEMATOLOGY 2011-08-28 09:26:000.2[facility] ClqlkexEKETEGCKJC6257-45-68 09:26:002.1[facility] IfvudqaWOOZZVIFUJ5188-03-19 09:26:000.5[facility] HunlyxbIMXGYUIPRD6110-54-95 09:26:003.2[facility] FadzbtgXLQXRXIOLD4074-77-14 09:26:000.4[facility] EHTFOIADUB6080-21-25 09:26:003.9[facility] NsciewcZTUCCVEZKX0708-70-56 09:26:007.6 [facility] YxeqrhkNMZCCVJLFC9853-21-64 09:26:0034.4[facility] HermannHEMATOLOGY 2011-08-28 09:26:0053.7[facility] HermannBEDSIDE GLUCOSE EEVEPKY1086-52-56 00:48:89874Vghpjdtf WpnodcgUQZLDYQBBN4957-49-36 19:57:0033.9[facility] FNQXBPUUAQ1391-52-48 19:57:0011.5[facility] QttzbdiBJKJVIUJI4339-10-40 09:20:003.1 [facility] WrnfxyqZEYOEHMFA5240-92-34 09:20:0014[facility] HermannCHEMISTRY 2011-08-27 09:20:000.7[facility] ZbhbkfsHODXDSESW7642-92-19 09:20:008.2[facility] KndtbdmZUNQJZNBC3811-63-13 09:20:0012.7[facility] XptxkktJRMGCHKXG2761-98-05 09:20:0029[facility] QdvaqfhYYBJGWBNY6253-89-27 09:20:006.9[facility] NJPDYZPNK6814-70-61 09:20:0011[facility] ZiphwdrJUXCCBGJJ8604-07-73 09:20:003.1 [facility] KhtkftxBXTPFHVPP6691-83-77 09:20:0037[facility] HermannCHEMISTRY 2011-08-27 09:20:0013[facility] ChbwyduDOQSQEIWB7858-91-26 09:20:000.8[facility] KnohudtCJJIJUKOG8765-13-20 09:20:003.8[facility] YfedwxaSKQIAYGEP1344-52-93 09:20:0098[facility] PicwhfgXSLRDMLVX5324-50-50 09:20:0017[facility] ZCTVGWSNW4035-21-61 09:20:001.6[facility] QgyiwqlULQPSNORW4746-24-86 09:20:67061 [facility] RwvdejnBUMRPSAYC5452-50-36 09:20:003.7[facility] HermannCHEMISTRY 2011-08-27 09:20:71668Zogrutub XbivxjnLQAFSGCOG4667-22-75 09:20:001.8[facility] QtcwaepGIUCASEEF7918-02-96 09:20:003.93[facility] OtqbiptVLUAAFJOT3619-20-22 09:20:0052[facility] RkbweepKODEFNTHZ1372-78-71 09:20:88034Kklyvtsj [facility] FPSQSDNYK2313-89-30 09:20:0028[facility] LmlfcagVMOTCHYGP7447-07-09 09:20:53907 [facility] QduolauSUKISGRASD1572-14-74 09:20:00 Test Item Value Reference Range Interpretation Comments PTT (test code = PTT) 32.0 s 22.9-35.8 N [facility] DkalctkVJMKWWFTGA4470-65-54 09:20:00 Test Item Value Reference Range Interpretation Comments PT (test code = PT) 20.7 s 12.0-14.7 H [facility] KeigqczNITIGBFVQM8147-74-12 09:20:001.79[facility] HermannHEMATOLOGY 2011-08-27 09:20:0013.7[facility] QcrledpCWPNKJZEAY9799-12-97 09:20:0055[facility] QslhzmeVKIEXZTJEA8454-44-22 09:20:009.1[facility] DtdmynnZVUGIKFOBV4862-19-43 09:20:0034.1[facility] SvxbokwCFKHDCIIRR0128-70-93 09:20:0034.7[facility] ULAQBXIEZN2920-53-65 09:20:0091.3[facility] FwwbncpYIZILDYGCP3653-64-04 09:20:00 11.8[facility] KxzdlmuEMRLOPQLUF3348-58-76 09:20:00 Test Item Value Reference Range Interpretation Comments MCH (test code = MCH) 31.1 pg 27.0-31.0 H [facility] OqokyvsYBMIKGDBJE7861-60-07 09:20:006.4[facility]annHEMATOLOGY 2011-08-27 09:20:003.80[facility] JkvagygMCNVJQNEIC5765-89-27 09:20:002.8[facility] CpaaurlFHLIITBNWQ4967-90-22 09:20:000.2[facility] GnmczhcUKHQJYNDEZ6797-52-08 09:20:000.0[facility] FrdrgpjBIPPZFTGKS7700-13-54 09:20:000.5[facility] PGCTXCKRIP2320-80-02 09:20:003.3[facility] TpsteuqFUASAVXHEY7333-58-94 09:20:000.3 [facility] BfgaanvGHLRFXXIMZ2448-89-81 09:20:002.9[facility]annHEMATOLOGY 2011-08-27 09:20:007.1[facility] GjxxbevTVKZVHJEUH0572-12-09 09:20:0045.8[facility] UrdlntyVMRHTAEVWV4659-65-21 09:20:0043.5[facility] NyzrlmbGPFCIELIZ0588-67-46 01:25:002.5[facility] DawtlvzXVPLUAPXA6433-80-25 01:25:001.7[facility] OKPYJCXZR9210-75-40 01:25:0011[facility] MlkaiunJVBWBNTHP2837-11-71 01:25:000.6 [facility] ViwmmgaTRTTJRKQC2539-36-74 01:25:0038[facility]annCHEMISTRY 2011-08-27 01:25:0014[facility] CdnfpmvQWQBYLIBU0286-66-47 01:25:003.4[facility] WhawkcoBEQCNGWPI1928-52-87 01:25:24089Mdfnfgio NbehihjTHLCVYUWU6517-21-88 01:25:001.7[facility] SckvrhlBAJYWGJNQ9551-20-83 01:25:63476Klpwvxhb No[facility] ZQIOKJUTB7065-76-14 01:25:0020[facility] TifizopYASJUVLAM8907-96-20 01:25:003.5 [facility] PxmgocqTNPTSGMLP5454-23-04 01:25:68276Jgzjrghu HermannCHEMISTRY 2011-08-27 01:25:007.6[facility] XamhlcqHFDBCELDJ9370-76-42 01:25:008.7[facility] VpahsnlOGLZHGLZR3485-73-84 01:25:0028[facility] OcwqmhfWGSOMAMXA7079-03-92 01:25:000.8[facility] NnbaopeYBBHDQODY7927-19-23 01:25:004.2[facility] EKYTZHOGX4868-49-13 01:25:0012[facility] GqqzqxqBSCERYOEU2680-25-96 01:25:0012.5 [facility] LgrxtadXEGUXBEIFB1335-74-48 01:25:001.82[facility]annHEMATOLOGY 2011-08-27 01:25:00 Test Item Value Reference Range Interpretation Comments PT (test code = PT) 20.9 s 12.0-14.7 H [facility] KahyqgbEJMTXBPLPK3543-98-74 01:25:00 Test Item Value Reference Range Interpretation Comments PTT (test code = PTT) 32.2 s 22.9-35.8 N [facility] TwvbinlZWUZZQBDPT4386-76-81 01:25:007.3[facility]annHEMATOLOGY 2011-08-27 01:25:0059[facility] PndkltdJSNXAUMYTO8712-47-61 01:25:0014.1[facility] GdhjdaqLJSTEBIANH7601-86-58 01:25:0033.8[facility] GedvvkeOPSOIOFOLK2743-52-98 01:25:009.3[facility] QleqxynLFXVUFGHVJ0316-45-19 01:25:003.95[facility] QWQHHWIXCT8460-94-57 01:25:00 Test Item Value Reference Range Interpretation Comments MCH (test code = MCH) 31.1 pg 27.0-31.0 H [facility] LjsbxngCXFQMGNARX8208-73-98 01:25:0091.8[facility]annHEMATOLOGY 2011-08-27 01:25:004.2[facility] AycgeftMFRNXIHSOE1905-82-11 01:25:000.1[facility] UxelgdxGKZYNASLJG5298-22-67 01:25:002.5[facility] ZbyvjtcCGTLYHJNHH4344-35-34 01:25:000.4[facility] LrsbcxqKVNLMCABSS8326-09-24 01:25:00Slight *ABN*(08/26/2011 20:25:00)[facility] WcodliyKYBJPJHNDF0696-63-37 01:25:000.0[facility] BHAZVMZRUW0352-17-55 01:25:004.9[facility] ZkhxvdbIONSCJEHGY2982-64-53 01:25:000.5 [facility] UqscsdkHTBIDKCCBK2622-24-72 01:25:002.0[facility]annHEMATOLOGY 2011-08-27 01:25:0034.5[facility] IcllrwwFPUEKHYSIG7277-04-01 01:25:0058.1[facility] DqwcufxQQPKLPGMCH0793-67-78 01:25:00Normal (08/26/2011 20:25:00)[facility] BEDSIDE GLUCOSE YRSYXGK7718-65-90 13:41:40955Middrvvk EqpbrmoYLSFZCUZM0606-47-55 13:00:006.2[facility] FpajorjGRWEISCDD8619-35-59 13:00:0016.6[facility] CFRMOKLRI9807-57-97 13:00:009.0[facility] QslwuxdYBEYSUMUJ1977-51-79 13:00:001.0 [facility] MecutlxPZTHQPAWD9964-98-52 13:00:0021[facility]annCHEMISTRY 2011-07-07 13:00:004.6[facility] AaaamcdYGKFNSRBT8876-98-08 13:00:69886Mddbhewb HhcmpqiHRHFGVZVC1750-72-61 13:00:43228Hhogijbw ZffpckgCYVELICVN6199-34-42 13:00:21912Rfjonmgg LqwpumuBZAPZCAUP5229-81-94 13:00:0027[facility] GGCSZQBSHB1867-69-62 13:00:009.4[facility] AgqucwuVKAJHZVANB1177-57-26 13:00:0049 [facility] OwodxcyZMEKDJQMUS7806-38-75 13:00:0033.1[facility]annHEMATOLOGY 2011-07-07 13:00:0014.4[facility] NwmcxeiPSHOEWWBPR9522-77-57 13:00:0039.9[facility] VizljyxSKXUOFJKUF4319-49-04 13:00:006.3[facility] KovlinzABWVENUCGI0559-06-39 13:00:004.26[facility] HzqckyuAONHEPORSE0448-83-08 13:00:0013.2[facility] TOPADAQMZV4406-85-48 13:00:0093.7[facility] VbaxtfyKWEXFDEHHE0738-77-10 13:00:00 Test Item Value Reference Range Interpretation Comments MCH (test code = MCH) 31.0 pg 27.0-31.0 N [facility] NxoknxbYCEEWFSEAL5693-06-00 13:00:00Slight *ABN*(07/07/2011 07:00:00) [facility] XmcmddtOPEWDZTPTM1515-89-97 13:00:00Slight *ABN*(07/07/2011 07:00:00) [facility] ZknddcnRDJMGYFUFN4139-32-86 13:00:00Slight (07/07/2011 07:00:00) [facility] BpppvjvNXALETXRSO3741-64-58 13:00:000.0[facility]annHEMATOLOGY 2011-07-07 13:00:000.2[facility] EbdnunzORAJUNFCGQ8939-85-11 13:00:003.4[facility] NrkueqsHHXZKOSERA6000-84-59 13:00:000.4[facility] KptcrojDJUHPPVDIY9204-76-77 13:00:000.4[facility] KechqqeFFJIUNDRTM7315-89-85 13:00:002.3[facility] TCMPZGVKTY2574-20-49 13:00:003.1[facility] VvpxxgeTJQWQDRKBF2134-30-51 13:00:005.8 [facility] WybccvjDMUWKPIQMD7424-41-90 13:00:0036.1[facility]annHEMATOLOGY 2011-07-07 13:00:0054.6[facility] HermannBEDSIDE GLUCOSE FWXHTKK7526-72-48 02:20:57047Rokbpmkd HermannBEDSIDE GLUCOSE ACYXQNW1320-71-98 22:22:0086[facility] PcthqtdBCJKWXPDM0480-62-98 11:45:002.680[facility] IfcttdhVEQZDKVLQ7801-06-02 11:45:002.64[facility] BsjpycnDNRRJHPKJ6894-64-93 11:45:0044[facility] BQFMLSTEP7166-62-22 11:45:0039[facility] UdellvdSKUMQHWPN8190-20-71 11:45:12067 [facility] ArudjlhENTPCCJSP0352-61-57 11:45:92395Xjxexmgy HermannCHEMISTRY 2011-07-06 11:45:007.3[facility] TsdvfcoWCIZKLYXK8309-14-59 11:45:003.7[facility] FggxrflTDWKWWUKG1557-10-73 11:45:0051[facility] TbudlivENZMJISCN3264-25-29 11:45:0016[facility] YlddjenKHAWBLEVB0526-31-31 11:45:003.6[facility] XSLWVATJR6776-44-39 11:45:001.0[facility] JsoqkpfHOCRPLWKR5396-33-25 11:45:0012 [facility] TvflxugECUCFGMDZ2086-69-97 11:45:000.4[facility] HermannCHEMISTRY 2011-07-06 11:45:008.8[facility] MzojxbvHWUGZAQKI7196-72-46 11:45:0013.5[facility] RqlexupNHOZFXSFH8011-80-86 11:45:0017[facility] ZnonweqACQUONBRU0145-26-53 11:45:0020[facility] PupexqrPXQPEXUCA5044-37-84 11:45:28934Sexgrdut [place] ICDVBEPMM1206-98-51 11:45:0028[facility] ThfmmciBMNWSAYUJ7045-26-13 11:45:001.2 [facility] BwowxhyALUJEKVTY7353-99-45 11:45:003.5[facility] HermannCHEMISTRY 2011-07-06 11:45:92503Sjgextri KoahnbyEXUGAXRFD0932-39-41 11:45:36204Tgpgflxn BazlldmMJRGQWGCH0812-69-97 11:45:000.9[facility] OdcobjdGFOAALYKH9381-79-49 11:45:000.19[facility] UiyacsvEXRLPKRQS6369-44-08 11:45:000.7[facility] ATXRCYZBI1435-60-90 11:45:0075[facility] RvgcyfoFCGOCVBVCO5245-37-29 11:45:0093.0 [facility] ZumpljjOTCYYKNPZH1911-91-59 11:45:0033.8[facility]annHEMATOLOGY 2011-07-06 11:45:00 Test Item Value Reference Range Interpretation Comments MCH (test code = MCH) 31.4 pg 27.0-31.0 H [facility] NbrpgzrOSQRVYIPOV2267-83-96 11:45:0012.4[facility]annHEMATOLOGY 2011-07-06 11:45:0036.7[facility] ImnpvsnHRJAVBUMDA3174-48-34 11:45:009.7[facility] YeprcinTGYNAZGBIU2238-48-87 11:45:0014.1[facility] UxvfttqUWUIKICMFJ8334-40-22 11:45:0046[facility] TlnkiahHAAFBVSRNA8943-64-49 11:45:005.9[facility] LRBLYIJNGW5544-04-31 11:45:003.94[facility] IyznkdrXARJZYXTSY1063-00-22 11:45:00 Slight *ABN*(07/06/2011 05:45:00)[facility] UegsiqhWPLJDEZXFW5566-40-87 11:45:00 Slight *ABN*(07/06/2011 05:45:00)[facility] NahtkefOGHODBKIYH3206-30-97 11:45:00 Slight *ABN*(07/06/2011 05:45:00)[facility] XdmhsidBOGPTYCNIE3700-76-89 11:45:00 Slight *ABN*(07/06/2011 05:45:00)[facility] OtxaravMEXUUCHCTY2852-18-77 11:45:00 Slight (07/06/2011 05:45:00)[facility] RsmlnwqOXRJLOZBFG8583-78-00 11:45:001.0 [facility] MtlxsgmULWQZLTKZD0036-12-72 11:45:001.0[facility] HermannHEMATOLOGY 2011-07-06 11:45:005.0[facility] GqthexbELWAADVFQP0951-46-73 11:45:004.0[facility] ZlgsgrhDYQDTXPIXV0946-43-47 11:45:0048.0[facility] JujdaddPMIAVLPTZG1656-22-34 11:45:002.5[facility] YljqazbETJSUSYIEJ6706-06-28 11:45:000.3[facility] EUERJQQNIE7027-85-01 11:45:000.1[facility] IovxmqfPBSCTMENPL8794-67-38 11:45:000.0 [facility] LyhayaqOEKUZTZJJV1032-16-40 11:45:0039.0[facility]annHEMATOLOGY 2011-07-06 11:45:002.0[facility] NdlqhvgFHSWHABILU8465-60-02 11:45:002.8[facility] HwnbdmcYOLRIMALJ4132-48-70 03:56:97581Hjpaqzeq MmkmsmdJPYOTQVZI3478-43-20 03:56:000.5[facility] WakuvazEKLMAAEFY3822-07-13 03:56:000.18[facility] MHZVAXRBV6548-37-95 03:56:0079[facility] KzdgmbvHRPPHRGYO2859-69-82 03:56:000.8 [facility] JlkmybdONSWHJWGD0998-99-05 03:56:004.4[facility] HermannCHEMISTRY 2011-07-06 03:56:000.4[facility] IlltyftGVMSIJKDT6099-65-59 03:56:0014[facility] UltrcfpNYMLNMLAQ0375-32-83 03:56:008.8[facility] NapomxzMTVDMVBGY3448-09-71 03:56:0014[facility] TspqvpdLDXTTQYCO3093-56-72 03:56:0033[facility] XXFFFFFNJ7818-29-65 03:56:001.4[facility] QfcpsczJGHUWBJXJ6511-70-12 03:56:88944 [facility] JrujzhjEZONXCTEX3263-37-00 03:56:003.8[facility] HermannCHEMISTRY 2011-07-06 03:56:96949Itcpnigb GrrysuvPAJZKZGYF8264-47-49 03:56:0018[facility] DchyptaZOPHEKNMJ2683-75-01 03:56:0054[facility] DziaedeOEFNWOCWU8757-01-23 03:56:008.9[facility] OjzvlhlPBJSVDHXV9245-09-29 03:56:008.1[facility] LBEGESJUK9382-37-93 03:56:003.7[facility] YabbjroOCXSABIQQ6415-69-19 03:56:0020 [facility] GnmqrrsFEKVFMAJW1173-17-02 03:56:97416Caohfdbe HermannCHEMISTRY 2011-07-06 03:56:000.6[facility] QflafqrUMMZNAJPMF1730-31-79 03:56:00 Test Item Value Reference Range Interpretation Comments PTT (test code = PTT) 27.8 s 22.9-35.8 N [facility] ItbuppuJIUMKHHITW1767-45-36 03:56:00 Test Item Value Reference Range Interpretation Comments PT (test code = PT) 17.7 s 12.0-14.7 H [facility] OwyjhopOLVANMGQAV4942-63-31 03:56:001.46[facility]annHEMATOLOGY 2011-07-06 03:56:004.11[facility] ZwisgnlQBLPIHRLCT7522-73-03 03:56:0049[facility] HrhmeaiPZEEFMWGGX2527-07-87 03:56:009.1[facility] UsexdauYNWNCUGSUW0296-23-25 03:56:0014.1[facility] MvukzzaCUZMCEDTVV5381-83-95 03:56:005.5[facility] OYVSVSFLZX2039-02-63 03:56:0037.2[facility] FrnltmnIBRGHNTUZQ5932-85-38 03:56:00 90.5[facility] OgqpeftKRHDRNZHNH5261-09-09 03:56:00 Test Item Value Reference Range Interpretation Comments MCH (test code = MCH) 30.8 pg 27.0-31.0 N [facility] TmugoygXLDWHSKJXZ1752-02-16 03:56:0034.0[facility]annHEMATOLOGY 2011-07-06 03:56:0012.6[facility] UpzscxkXKHRNMABDM7161-01-66 03:56:002.0[facility] GsldlixMOJSMPACYL2745-60-13 03:56:000.4[facility] IjzuqivEJQMQDBVDX7418-53-41 03:56:00Slight *ABN*(07/05/2011 21:56:00)[facility] XpcgsijWQWZIZJEYG2399-51-62 03:56:000.1[facility] FnwjyvfUIFZZRFDWJ1970-32-10 03:56:0036.0[facility] WGLLNTYGGM8894-58-93 03:56:000.1[facility] WcheakrYAAJYSGQMA5850-15-15 03:56:003.0 [facility] AkdhnalDKHXWZXUPJ1337-19-99 03:56:0054.0[facility]annHEMATOLOGY 2011-07-06 03:56:000.0[facility] NgcxnflMLUKPMIHHP3431-75-37 03:56:007.0[facility] ZsbdktqSOLOMKSJMP3083-19-82 03:56:002.0[facility] XhjyfwmIINFHLYTAV8580-48-32 03:56:001.0[facility] PdpyfrsKNMHUEITNF9012-00-32 03:56:000.0[facility] QEHPFBCXTR6235-96-46 03:56:002[facility] GybuesiQPGQDQHXUQ8035-88-43 03:56:00 Normal (07/05/2011 21:56:00)[facility] HermannBEDSIDE GLUCOSE JISNAYO5002-29-80 17:34:06755Qbtlcjiw HermannBEDSIDE GLUCOSE RJNICEL8220-14-99 13:53:26445Iylljbdz GfsfcmlZFNPDYPMW5232-47-07 11:00:002.1[facility] KfsalexQJKSREVRR4190-64-96 11:00:0010.4[facility] FfeifghIPFYMTHQJ4928-44-14 11:00:0029[facility] QMCJKYKUP3100-46-21 11:00:008.2[facility] UnkcjrxKYIJJJGPK7589-14-98 11:00:73887 [facility] NckzpgiFMTHGIHGM6150-64-59 11:00:20365Obmkxshb HermannCHEMISTRY 2011-05-05 11:00:004.4[facility] AjvuwxlEIREHHJSZ5885-36-14 11:00:001.2[facility] YsnipkrTMSKMACDQ0247-93-39 11:00:0086[facility] ZrjiulgEUNRQBDHR4125-25-96 11:00:0025[facility] JutxjhcVNLZDFCPR1448-91-21 11:00:0089[facility] LRPXIFLBR1153-53-33 11:00:0042[facility] YxvvinbRZPFLAMOJ6465-93-17 11:00:93451 [facility] FqrylhwYNSHOJHJH6947-71-71 11:00:99741Wogywhbw HermannCHEMISTRY 2011-05-05 11:00:003.67[facility] GbcvymhVAHPAFWPQ5644-81-23 11:00:002.5[facility] CgsxkclCASTCTJKVF8074-25-78 11:00:00 Test Item Value Reference Range Interpretation Comments PTT (test code = PTT) 44.8 s 22.9-35.8 H [facility] CwvkomxOMYGVSJWZS8206-10-10 11:00:00 Test Item Value Reference Range Interpretation Comments PT (test code = PT) 21.1 s 12.0-14.7 H [facility] CenuowgFQIRNXFFSQ7957-99-00 11:00:001.84[facility]annHEMATOLOGY 2011-05-05 11:00:00 Test Item Value Reference Range Interpretation Comments MCH (test code = MCH) 31.5 pg 27.0-31.0 H [facility] JkecwudPIOPODXJYC5115-63-37 11:00:009.7[facility]annHEMATOLOGY 2011-05-05 11:00:0034.0[facility] MacsapiLIYQOFMOHL1421-43-44 11:00:0048[facility] HlvewdbKSIOMQDLUT4527-10-78 11:00:0012.5[facility] PxxzaamPARZJJFKIV3391-04-70 11:00:004.3[facility] UhjoxwoCUKSNGYXGE9157-02-00 11:00:003.97[facility] YDTKGDWROP9221-09-42 11:00:0036.7[facility] BfsbotvEMBRWYEBWH4986-43-82 11:00:00 92.5[facility] OhmhzxyLMDRWOIADU6419-18-64 11:00:0015.1[facility]annHEMATOLOGY 2011-05-05 11:00:00Slight *ABN*(05/05/2011 05:00:00)[facility]annHEMATOLOGY 2011-05-05 11:00:00Slight *ABN*(05/05/2011 05:00:00)[facility]annHEMATOLOGY 2011-05-05 11:00:000.0[facility] LdmkantLRMXQZQQLS2333-02-13 11:00:000.0[facility] LxsoozwSPHGNUPMMK0664-93-25 11:00:0051.0[facility] IrwyahnTIQEORNORL4549-14-43 11:00:000.0[facility] SotparoDYCUENMTED1243-96-34 11:00:0042.0[facility] VIABPDCRHN1642-28-65 11:00:000.1[facility] YljrajnAURUBWFSII4600-81-99 11:00:000.2 [facility] OdyapxmGTDGYYQRUZ2332-22-45 11:00:002.2[facility]annHEMATOLOGY 2011-05-05 11:00:001.8[facility] PsefttaVXQLCSNXQW3777-80-50 11:00:002.0[facility] UnmttpoLAFLKNINCA4251-78-11 11:00:005.0[facility] HermannBEDSIDE GLUCOSE TESTING 2011-05-05 03:20:08874Hemrobas GarmpmkHPSOQMXGZT5954-35-10 10:30:000.0[facility] LnrufooGCRVZHCHOY3633-71-18 10:30:000.1[facility] JivbzriHEKHXJXYWB6568-57-19 10:30:006.1[facility] YhstgfiUFFQWCCPOU6899-52-71 10:30:0033.5[facility] [place] VKGBGVVPHL5223-23-72 10:30:0056.9[facility] NzurhgrMUVLPLSKXU6639-70-98 10:30:00 1.5[facility] PzrsjcmQNKILSRKVK1073-83-36 10:30:002.6[facility]annHEMATOLOGY 2011-05-04 10:30:000.3[facility] XunvqqaOMCZXPCMQO7314-59-29 10:30:002.9[facility] NliupszGVQSCIRLOM4813-55-38 10:30:000.6[facility] WroqteaEELXHUSHSS9387-53-08 10:30:00 Test Item Value Reference Range Interpretation Comments PTT (test code = PTT) 43.4 s 22.9-35.8 [facility]GusywukIDLWIMOBYN7792-75-36 10:30:00 Test Item Value Reference Range Interpretation Comments PT (test code = PT) 18.2 s 12.0-14.7 [facility]andQgrbzjcCMUBCNTUAB7752-73-02 10:30:001.52[facility]annHEMATOLOGY 2011-05-04 10:30:009.8[facility] JoejrtuCFZNKJERWW8307-37-44 10:30:0034.2[facility] SwqapftTIOXBWEJBQ1820-70-68 10:30:0015.0[facility] TvqnkahKPMYMQMSTZ6159-16-40 10:30:0051[facility] FkgnhotNZUWTUDESD1233-85-97 10:30:004.06[facility] [place] CVBRDCRMIW1813-14-26 10:30:0012.6[facility] TcjcvpqQYHONGQDBI4082-22-90 10:30:00 Test Item Value Reference Range Interpretation Comments MCH (test code = MCH) 31.2 pg 27.0-31.0 [facility]andPqpucgrJNYCDJEFJL3039-47-19 10:30:004.5[facility]annHEMATOLOGY 2011-05-04 10:30:0037.0[facility] EdbmdrsEQEKXOUXED4830-61-30 10:30:0091.1[facility] YdvkrkqOKFTURQXZQ7414-84-40 10:40:001.41[facility] QaiamwdYUYBFBECNE7015-50-66 10:40:00 Test Item Value Reference Range Interpretation Comments PT (test code = PT) 17.2 s 12.0-14.7 [facility]andCckxpugDJFNVHDTMI1672-99-55 10:40:00 Test Item Value Reference Range Interpretation Comments PTT (test code = PTT) 37.6 s 22.9-35.8 [facility]ellandCobazdiNYGHFBCDZL3807-46-27 10:40:0010.0[facility]annHEMATOLOGY 2011-05-03 10:40:0066[facility] YbnzluoDPGPKXVCJB4778-90-59 10:40:0091.6[facility] GpilsnsDOCSFWYQQG5356-12-13 10:40:00 Test Item Value Reference Range Interpretation Comments MCH (test code = MCH) 31.3 pg 27.0-31.0 H [facility] ThjtxxiJMTJUWOGAB2060-56-75 10:40:0034.2[facility]annHEMATOLOGY 2011-05-03 10:40:0015.4[facility] FbcbrlyTBOFZPXMRT5452-59-29 10:40:0038.7[facility] MexfftnERYUPKKWOB4386-27-35 10:40:004.8[facility] NcldpqoCNOXBQNUQY4783-21-12 10:40:004.23[facility] UbntebsZNXIBIKPCH9293-55-61 10:40:0013.2[facility] ACXLUCGRXD6702-05-71 10:40:00Slight *ABN*(05/03/2011 04:40:00)[facility] OATEDFTACJ9264-56-92 10:40:000.0[facility] HovylipPPZRUYTZHI4668-13-53 10:40:00 Slight *ABN*(05/03/2011 04:40:00)[facility] VwagcllLJJYUYRRQD8824-93-84 10:40:00 2.0[facility] IbliexrFIYOKULOLR6873-56-80 10:40:006.0[facility]annHEMATOLOGY 2011-05-03 10:40:004.0[facility] YfmehrwWJMSDNYKSZ9024-51-30 10:40:001.0[facility] JpdxygoAHLQJVNHRZ5267-33-78 10:40:000.3[facility] QibufbuMZCWMYJTAW4927-07-93 10:40:0054.0[facility] GymsxgxHRSFBDAFRN4588-30-26 10:40:0033.0[facility] WHRJUGWIPH3556-81-00 10:40:000.2[facility] VlhdauoCCNFDCZEVF2177-24-50 10:40:002.7 [facility] FzrvgknXHLZKQEQOE7944-57-82 10:40:001.6[facility] HermannHEMATOLOGY 2011-05-03 10:40:000.2[facility] BgegtwuKZBWOTMTKD2080-06-03 10:40:000.2[facility] VlrofaiKCYGJKQEQC4523-72-79 10:40:000.0[facility] PqiixeqPFZJVHNQJP8876-35-32 10:40:005.1[facility] NkmaryyAXEMVFPDHS7782-44-38 10:40:003.4[facility] UJJHYUAMYP9606-60-11 10:40:000.4[facility] AuhykugSMEBTMTEEJ5989-72-16 10:40:001.7 [facility] DdevtzlTPWEASYDDN3948-80-46 10:40:002.6[facility]annHEMATOLOGY 2011-05-03 10:40:0036.4[facility] JlwmlahKDHEBRTUWI0286-80-75 10:40:0054.7[facility] PrfxkpiABGDELEKFG9023-36-54 10:15:00Slight *ABN*(05/02/2011 04:15:00)[facility] RtxrovfEBBTJXBSMD6756-67-63 10:15:00Slight *ABN*(05/02/2011 04:15:00)[facility] NrulnweCUFMVVIFIL7823-28-40 10:15:000.0[facility] NjyevonYEHISUHTMA9628-75-17 10:15:00Slight (05/02/2011 04:15:00)[facility] SjqtvcmLKNFSKELGH5236-07-74 10:30:00Slight (05/01/2011 04:30:00)[facility] FjsrmuuHCOUVVUSSJ0665-80-14 10:30:00Slight *ABN*(05/01/2011 04:30:00)[facility] GkatupcKHKAJRHDIZ6511-36-35 10:30:00Slight (05/01/2011 04:30:00)[facility] KtmutucLZORQVJMAM8856-04-68 10:30:00Slight *ABN*(05/01/2011 04:30:00)[facility] FpwjrpoYPPNVJKRVP9712-28-71 10:30:005.0[facility] ZfdisgbLRVEEKNMLE0567-49-19 10:30:000.0[facility] [place] EYYIVGRVOC6175-22-11 16:15:005[facility] GedbyctXFLVAMTOQT1740-52-52 16:15:72791 [facility] XmbolvoVIYJBXKRRP6507-06-18 16:15:907612Vayrpyoa HermannHEMATOLOGY 2011-04-30 11:00:00Normal (04/30/2011 05:00:00)[facility]Y 2011-04-30 11:00:00 Test Item Value Reference Range Interpretation Comments dRVVT (test code = dRVVT) 36.9 s N [facility] IjocrwoUDOHNJEVHI1141-28-90 11:00:00Negative (04/30/2011 05:00:00) [facility] LuupsxqFHVETPVDDF9510-26-80 11:00:007.0[facility] HermannIMMUNOLOGY 2011-04-30 11:00:001.65[facility] EwimwveYAVCXPEOAB9730-91-92 11:00:000.78[facility] UvshbnaZFVASMIPGT4215-67-77 11:00:000.69[facility] GnxlameHTTCZDDSWE5672-30-45 11:00:0051.1[facility] FowsadhKJVPNFYZIL4229-09-62 11:00:004.2[facility] WYJLNZLMXB8048-10-39 11:00:0011.2[facility] CradzjsBPTNLRQWIG7307-39-29 11:00:00 9.9[facility] JmcuvyqEJDXCDAVEG7059-94-55 11:00:0023.6[facility] HermannIMMUNOLOGY 2011-04-30 11:00:003.58[facility] SxewwpfTAPZMCUQPP4159-80-29 11:00:000.29[facility] YwaesekDGZGCIHVTU5411-94-00 11:00:00<9[facility] SsxklcvTPBLFRUDRE7158-17-52 11:00:00<9[facility] GgpgydoDXTDXQZSKD9916-64-11 11:00:00<9[facility] [place] TBZFHBXXIF6086-56-15 11:00:002[facility] WrhmfwbHDOXIPPXKX5496-61-62 11:00:004.3 [facility] JedxycdWDENXPXLGE7888-63-13 11:00:006[facility]annCHEMISTRY 2011-04-29 11:20:008.3[facility] PudkjaxYVSCFTWUT3543-75-97 11:20:004.5[facility] UkyoekiBPXVZHITO1427-08-73 11:20:68904Eekuyhur JkbqjxuCLBDJJYJH6442-96-38 11:20:0031[facility] PgdpkckWDOYITCRT0572-33-01 11:20:40055Labnmpxn [place] KLJKGOQIH0108-13-20 11:20:0022[facility] RhhhuabMRSUQPVDH1810-48-25 11:20:001.4 [facility] HyfgykvYNPPBETUY1461-38-00 11:20:53351Otkcxzdf HermannCHEMISTRY 2011-04-29 11:20:0011.5[facility] CfuiybmHSPSVDZVH3765-68-77 11:20:007.2[facility] WfvdlfkXXVAMSTEA9148-10-52 11:20:003.540[facility] CpofgwgPCHWVRNIHL0269-07-10 11:20:00Slight (04/29/2011 05:20:00)[facility]annBACTERIAL - SEROLOGY 2011-04-28 16:58:00Negative 1(04/28/2011 10:58:00)[facility]annCHEMISTRY 2011-04-28 16:50:006.7[facility] UnuqizyHNATSJYZO0976-01-18 16:50:0015[facility] WuetgglGTVBTBIUJ3247-71-20 16:50:003.2[facility] UpxeireDASYUWLET5474-48-16 16:50:0046[facility] DrbwcxkXIQFSMIOR8802-21-53 16:50:000.2[facility] KINFLBBKB3566-13-20 16:50:0017[facility] FopdagsNMSRYZNRC1951-91-37 16:50:000.8 [facility] MbfxnmmQRHKMOLJQ5072-76-48 16:50:003.5[facility] HermannCHEMISTRY 2011-04-28 16:50:000.6[facility] TexxfykBUEDNVRSF5075-64-30 16:50:000.9[facility] FlniydfVOLKSFNXM6103-70-24 16:50:0030[facility] BofzblvPQKCPWDOC7527-39-65 16:50:008.0[facility] AhwlboaJPRCDTUVM8806-40-52 16:50:0099[facility] JRGHIWMCT2945-45-83 16:50:003.6[facility] BnhayrtTXXZFYVBB2764-41-53 16:50:0026 [facility] CfmbwmcPCHFZDRST2093-05-81 16:50:43799Ykuaswyk HermannCHEMISTRY 2011-04-28 16:50:40733Tdddipqi YskiamxWBILABSUW1897-50-46 16:50:001.4[facility] KunxtfkWRERFEMLC0671-27-98 16:50:0011.6[facility] ViitmguXZDCFBNLWN0931-62-81 16:50:00 Test Item Value Reference Range Interpretation Comments Pat Od Value (test code = Pat Od 0.084 1 Value) [facility]lvwcyyONXFZKQSVU7615-64-94 16:50:00 Test Item Value Reference Range Interpretation Comments Pos CO Value (test code = Pos CO 0.376 1 Value) [facility]andGhmnzawAAOEZLKZLH7265-85-95 16:50:00Negative (04/28/2011 10:50:00) [facility]andRcxeuotFPTQVIZCFM6920-19-44 16:50:00Normal (04/28/2011 10:50:00) [facility] JTXKIHV2158-57-48 10:52:00Product available (04/28/2011 04:52:00)[facility] YYOPWJV7520-04-81 10:52:00 Negative (04/28/2011 04:52:00)[facility]andWltozkfZJINMPIKJ9883-45-41 08:40:000.70 [facility] UrututxJBWTBMLZF2657-79-86 08:40:004.9[facility]annCHEMISTRY 2011-04-28 08:40:45874Hycfysjd UdmunrqOOVEGQAYX9843-76-04 08:40:33639Sgoilpzb VmujktgEQJLOYVWK7545-91-34 08:40:003.7[facility] BgukbbmZJAXCEYCL9876-64-76 19:22:0024.0[facility] KslqrjmEBKSFSOEWR6554-24-82 19:22:00Positive *ABN*(02/17/2011 14:22:00) ??[facility] GoaelqeHPPFWGRHUD8884-85-95 19:22:001:40 *ABN*(02/17/2011 14:22:00) ??[facility]andannBEDSIDE GLUCOSE LWZZAYJ8346-19-66 15:42:39839.0[facility] HermannBEDSIDE GLUCOSE AGATZIA9673-63-21 12:42:26793.0 [facility] ZhpbtreGLUCNWERA7465-70-67 09:15:002.3[facility] HermannCHEMISTRY 2011-02-17 09:15:0010.0[facility] WeyjulsVSJFTWULE6937-14-12 09:15:000.5[facility] MykhnweUTXFXPHMX3997-40-92 09:15:0047.0[facility] JihjdlsKYFFANENY6255-45-91 09:15:0026.0[facility] RejsplmXBRSUMMOG8602-77-24 09:15:007.0[facility] GRQLBYBDJ1718-70-98 09:15:008.5[facility] AgzsbnyKMXKQXUQB5502-80-57 09:15:0030.0 [facility] XuxpfpgQDBCQGPVH0872-21-17 09:15:96015.0[facility] HermannCHEMISTRY 2011-02-17 09:15:004.5[facility] GmvtwtlNHSKCGGNE1768-03-40 09:15:002.9[facility] VxonquqNUEIEGJMM6448-61-68 09:15:0016.0[facility] VlumkraCPIVGPYZO0089-68-41 09:15:31132.0[facility] YyzikhzFYBSWEQQN1018-85-79 09:15:001.2[facility] DKEHQZBKM4177-55-37 09:15:59503.0[facility] DgiheolVIRWSSFLO5092-07-06 09:15:00 Test Item Value Reference Range Interpretation Comments A/G Ratio (test code = A/G Ratio) 0.7 1 0.7-1.6 N [facility] QfesyczPOMFIADXE1499-43-42 09:15:004.1[facility] HermannCHEMISTRY 2011-02-17 09:15:00 Test Item Value Reference Range Interpretation Comments B/C Ratio (test code = B/C Ratio) 13.0 1 6-25 N [facility] YfkrdexGUBQVBAYQ9236-88-72 09:15:0012.5[facility] HermannCHEMISTRY 2011-02-17 09:15:003.2[facility] VqzyxayURPWWSFBAR2199-21-15 09:15:97152.0[facility] PnptgzaXPJWFKHGKI7436-17-95 09:15:009.7[facility] BgwwnqiPNTJBKDMUN8619-08-43 09:15:0014.1[facility] FytasjsFBAEVPQRQY9067-24-11 09:15:004.65[facility] JXHRBZTFGF6390-58-04 09:15:0015.1[facility] IbnypxbPLVZXOAGSX9260-37-15 09:15:00 8.9[facility] WcwuggcSENELNUANR6385-83-64 09:15:0042.5[facility]annHEMATOLOGY 2011-02-17 09:15:0091.4[facility] NyqaojgKTQEVBVUUO9442-03-47 09:15:0033.3[facility] PqhesodLIORQBHBRD0464-14-43 09:15:00 Test Item Value Reference Range Interpretation Comments MCH (test code = MCH) 30.4 pg 27.0-31.0 N [facility] JswjmtoXPBLNTLDCG6362-79-61 09:15:007.8[facility]annHEMATOLOGY 2011-02-17 09:15:000.8[facility] IrxtsudRFVBYQFRNS8883-19-41 09:15:000.2[facility] JtupbmkCOGVRJRWQY7296-11-94 09:15:000.0[facility] LgqvpshXVZXRQUMSA1821-30-40 09:15:000.0[facility] LycqqeyEXDAVJBHZQ7070-23-18 09:15:009.5[facility] ESCRQVJOMA4926-71-97 09:15:000.2[facility] ScqvkmlQVTRSRDQYB5194-72-86 09:15:00 88.2[facility] CplmawyDCSFFFBANV1396-32-58 09:15:000.3[facility]annHEMATOLOGY 2011-02-17 09:15:001.8[facility] HermannBEDSIDE GLUCOSE JOJWDUH0773-44-52 01:39:00 155.0[facility] PogttwlCVFIQWUKYW1248-05-34 10:05:00 Test Item Value Reference Range Interpretation Comments INR (test code = INR) 1.07 1 0.85-1.17 N [facility]ln[facility]hNBZLGQHQRQ5301-[facility]-19 10:05:00 Test Item Value Reference Range Interpretation Comments PTT (test code = PTT) 28.8 s 22.9-35.8 N [facility] ApejbgwFLBQDMHTAA8479-29-08 10:05:00 Test Item Value Reference Range Interpretation Comments PT (test code = PT) 13.9 s 12.0-14.7 N [facility] ChkfjvrOGCQTDLGR0338-24-41 09:15:002.8[facility]annCHEMISTRY 2011-02-16 09:15:0019.0[facility] EikvbnvCMUQQUTDN4756-54-48 09:15:008.1[facility] NywhuyxDPYBKDTWW1769-94-26 09:15:006.4[facility] CnuoqdjRNDSWRHYT3307-58-87 09:15:0027.0[facility] XnrolrvXBCFINYIV4130-21-53 09:15:002.7[facility] BQJPDIFNO1727-36-98 09:15:005.0[facility] EejsecsSYICEAORT3827-16-93 09:15:000.4 [facility] FmpdjpnVESYFEYXT4423-37-14 09:15:0038.0[facility]annCHEMISTRY 2011-02-16 09:15:0093.0[facility] DtnifztOUXBKXVSQ3131-37-08 09:15:003.6[facility] DteikqzPPMELFTPG8544-04-38 09:15:89623.0[facility] GdelhbfIHQRJLZTG9885-67-95 09:15:95150.0[facility] HetrvbvJDDSSFXVX3990-33-17 09:15:0019.0[facility] MDBCFIUQN6861-37-33 09:15:001.2[facility] VtpskfjXCVVFFMYS8623-00-71 09:15:00 Test Item Value Reference Range Interpretation Comments A/G Ratio (test code = A/G Ratio) 0.7 1 0.7-1.6 N [facility] ZkcuzhkXISNHTWOG3032-69-63 09:15:003.7[facility]annCHEMISTRY 2011-02-16 09:15:00 Test Item Value Reference Range Interpretation Comments B/C Ratio (test code = B/C Ratio) 16.0 1 6-25 N [facility] ZaiuyskFSVKJLZGV0924-80-90 09:15:0011.6[facility] HermannCHEMISTRY 2011-02-16 09:15:002.3[facility] CtnbxonWLGQYMPGEC0682-58-87 09:15:0018.7[facility] EwfjhelHUDRGCIPXL7009-60-40 09:15:0075.9[facility] FydhpjiHVTDDONSSC9575-38-24 09:15:000.0[facility] VorymnkWHLXCYMSWH1886-99-65 09:15:000.1[facility] QJTIVLNZIY8530-60-61 09:15:001.8[facility] KqalxpsBEJMJVGSZG0034-21-96 09:15:000.4 [facility] QpqxlgjFPHDGCLGZN1027-15-40 09:15:000.2[facility]annHEMATOLOGY 2011-02-16 09:15:007.3[facility] NohngmeJYDVIMHWWJ4403-71-94 09:15:000.9[facility] NynpswhNKNRIBBEKR1554-75-73 09:15:004.3[facility] QabffcwGNZFWLEJAR4557-55-75 09:15:0013.0[facility] BfmpfiiFSCEXVNZPM3270-97-90 09:15:0038.5[facility] JISGLSUJZR6520-10-02 09:15:004.23[facility] HlyhfwfLNJMWVZPEQ2967-13-41 09:15:00 9.6[facility] IylapozPUSNKCHWRG6971-31-16 09:15:00 Test Item Value Reference Range Interpretation Comments MCH (test code = MCH) 30.7 pg 27.0-31.0 N [facility] JjcevhsLZJHVIAVMI9140-69-83 09:15:0091.1[facility]annHEMATOLOGY 2011-02-16 09:15:0014.6[facility] KpoidniXUZPBXZQGD0657-60-06 09:15:0033.6[facility] TjcxkaqMXISCXIXGO0067-13-07 09:15:64386.0[facility] FnoswjfPZRIVUZIAZ3792-76-97 09:15:009.8[facility] HermannBACTERIAL - QTWUTLKY9725-79-82 16:30:00Negative (02/15/2011 11:30:00) ??[facility] HermannMICRO MISC - IVOICQNZ2468-39-80 16:30:00 Negative 1(02/15/2011 11:30:00) ??[facility] TcpviuiIDUNPBUQJ7780-94-66 11:10:00 0.9[facility] BtcwitwNPOVJPWNC9603-89-56 11:10:0032.0[facility] HermannCHEMISTRY 2011-02-15 11:10:000.15[facility] IzjvsvsQLEDAVTHBI0606-36-50 11:10:000.0[facility] TexorqlQMDNLBOKDU4914-04-47 11:10:000.0[facility] SfhlkmgQDZOJUHLMU9256-15-16 11:10:000.8[facility] BimascjWTDTLUMJRZ2887-76-59 11:10:002.0[facility] ZRSUSVNCME8524-18-07 11:10:007.1[facility] ZxvonijBFBJTTQWZU0444-60-44 11:10:000.5 [facility] TwivacpYATCYBOPHP5902-16-71 11:10:000.3[facility] HermannHEMATOLOGY 2011-02-15 11:10:007.8[facility] GypadtpFZNHXDMILI4413-19-23 11:10:0020.3[facility] YkunplfYGZKLULPTC2381-92-01 11:10:0071.1[facility] FusvdudEQDUZXBPDU1320-58-38 11:10:0010.0[facility] NjqmjvhOXYDOWRUUM6329-80-80 11:10:0091.5[facility] LGWVJTTHJT3268-73-07 11:10:0038.9[facility] AiopxlnNHADAJFMLF3941-64-03 11:10:00 4.25[facility] SupauggTOBNNNJHYD4831-85-69 11:10:0012.9[facility]annHEMATOLOGY 2011-02-15 11:10:0033.2[facility] ZhazmhiOTGXPPWEUO3879-12-41 11:10:00 Test Item Value Reference Range Interpretation Comments MCH (test code = MCH) 30.4 pg 27.0-31.0 N [facility] GisdfotTOOTIEAXRO7928-72-33 11:10:0010.0[facility]annHEMATOLOGY 2011-02-15 11:10:0014.9[facility] DzwwmzoGEJXNRVMSR1457-80-22 11:10:71126.0 [facility] HermannVIRAL - GPFASRIG2728-05-17 05:20:00Negative 5(02/15/2011 00:20:00) ??[facility] HermannVIRAL - MUJHYLRA5333-60-20 05:20:00Negative (02/15/2011 00:20:00) ??[facility] BeizpbbQOHKJFLZW5977-62-56 05:07:0037.0[facility] GsjtssnPKNNCZITH1487-62-58 05:07:000.15[facility] IetbutiGVJRFSMCV2369-40-43 00:24:000.14[facility] GwvrkmbXVYCBDUDW9651-18-35 00:24:0048.0[facility] ILHIFSTRN2215-97-01 00:24:005.0[facility] NnecuhoCPMHJACSB0711-11-89 00:24:0040.0 [facility] RzguczkOWNWWKHBZ2749-50-00 00:24:000.5[facility] HermannCHEMISTRY 2011-02-15 00:24:003.3[facility] ZwazipbCAMZMNYOU0434-38-92 00:24:0016.0[facility] TmwntpeGYOXSYVNE1307-13-79 00:24:008.4[facility] XfcgzgjCSCPTLGHT2911-39-19 00:24:007.5[facility] RvadspuARFBHMXPN3071-65-26 00:24:0027.0[facility] EDVQYQTLE1455-09-88 00:24:61038.0[facility] HnwnhszYNZMROOUL7806-58-17 00:24:004.2 [facility] YknwcabKPMEFOSPB5512-26-68 00:24:00 Test Item Value Reference Range Interpretation Comments A/G Ratio (test code = A/G Ratio) 0.8 1 0.7-1.6 N [facility] InvagbbVXJTTWNGI0810-68-40 00:24:0013.9[facility] HermannCHEMISTRY 2011-02-15 00:24:00 Test Item Value Reference Range Interpretation Comments B/C Ratio (test code = B/C Ratio) 15.0 1 6-25 N [facility] KsdgauuLBTYLMPYY8774-97-07 00:24:003.9[facility] HermannCHEMISTRY 2011-02-15 00:24:16877.0[facility] XtbzibmINFJYUPMK3493-74-03 00:24:001.4[facility] UkimrgjYWYKVKTIR6204-10-75 00:24:0021.0[facility] NjzeltuFTUHCWLBO9425-33-69 00:24:91760.0[facility] GrozqjnYIWXCNSLZ2968-36-74 23:50:00721.0[facility] WFRUIKILPQ3202-66-26 23:50:00 Test Item Value Reference Range Interpretation Comments PT (test code = PT) 14.2 s 12.0-14.7 N [facility] XldqnfaITKWVPSXXZ0492-93-25 23:50:00 Test Item Value Reference Range Interpretation Comments PTT (test code = PTT) 22.7 s 22.9-35.8 L [facility]andNiqekrvXQBIEKNSCV2686-51-14 23:50:00 Test Item Value Reference Range Interpretation Comments INR (test code = INR) 1.1 1 0.85-1.17 N [facility]andSgytpfeGPPDZMUBSR8369-31-20 23:50:000.58[facility]annHEMATOLOGY 2011-02-14 23:50:00Normal (02/14/2011 18:50:00) ??[facility]annHEMATOLOGY 2011-02-14 23:50:00Normal (02/14/2011 18:50:00) ??[facility]
== END 2020-06-17 18:15 | disposition home or self-care (01) ==
LOC: ER 11:45
DX: N39.0 Urinary tract infection, site not specified (principal); E78.00 Pure hypercholesterolemia, unspecified; E78.5 Hyperlipidemia, unspecified; I48.91 Unspecified atrial fibrillation; I11.0 Hypertensive heart disease with heart failure; I50.9 Heart failure, unspecified; Z86.73 Personal history of transient ischemic attack (TIA), and cerebral infarction without residual deficits; M10.9 Gout, unspecified; Z95.0 Presence of cardiac pacemaker; I25.2 Old myocardial infarction; G62.9 Polyneuropathy, unspecified; Z95.5 Presence of coronary angioplasty implant and graft
CPT/HCPCS: 81003; 81015; 87077; 87086; 87088; 87186; 99283

== ENCOUNTER 2020-07-05 17:17 | Observation (INO) | payer OTHER ==
--- OUTSIDE RECORDS SUMMARY | 2020-07-05 18:21 | XMS REPORT | Continuity of Care Document ---
:1935 Author Organization [facility] t Address [address] [place] [place] [address] Care Team Providers Name Role Phone Jose [...] Y FAILURE, 11-29 04:35:00 l CHF 00:00: [place] RESPIRATOR 00 Y FAILURE, CHF Active 11/29/2018 [facility] ACUTE ON Diagnosis Active 2019-01-17 M emoria CHRONIC 11-29 09:46:00 l CHF ACUTE ON 00:00: Pankaj n CHRONIC 00 CHF Active 11/29/2018 [facility] J44.9 - Diagnosis Active 2017-052018-05-20 Ia moriroshni CHRONIC 06-14 15:41:00 l OBSTRUCTIV J44.9 - 00:01: Her greenwodo E CHRONIC 00 PULMONARY OBSTRUCTIV R0 E PULMONARY R0 Active 8 [facility] [place] ATRIAL Diagnosis Active 2017-052018-04-19 Mem oria FIBRILLATI -16 16:22:00 l ON, CAD ATRIAL 00:00: Noel FIBRILLATI 00 ON, CAD Active 03/25/2018 [facility] Acute deep Acute deep Disease Active 2016-05 [place] vein vein 06-14 Method[place] thrombosis thrombosis 00:00: st (DVT) of (DVT) of 00 both lower both lower extremitie extremitie s s ALTERED Diagnosis Active 2016-052017-04-20 Ia evonne MENTAL 06-08 21:57:00 l STATUS ALTERED 00:00: [place] MENTAL 00 STATUS Active 04/08/2017 [facility] SENT BY Diagnosis Active 2016-052017-03-16 Me douglass DRShanice 05-16 15:25:00 l SENT BY 00:00: Noel DAMON 00 Active 03/16/2017 [facility] ACUTE DEEP Diagnosis Active 2016-052017-03-22 Memoria VEIN 05-16 08:39:00 l THROMBOSIS ACUTE 00:00: Jessica nn OF LEFT DEEP VEIN 00 LOWER THROMBOSIS OF LEFT LOWER Active 03/16/2017 [facility] CHEST PAIN Diagnosis Active 2015-052016-03-17 Memoria AFIB 0 22:03:00 l CHEST 00:00: Noel PAIN AFIB 00 Active 03/09/2016 [facility] CHEST Diagnosis Active 2016-01-20 Mem oria TIGHTNESS 01-16 15:11:00 l CHEST 00:00: [place] TIGHTNESS 00 Active 01/17/2016 [place] UNABLE TO Diagnosis Active 2015-05-28 Memoria URINATE 05-28 15:38:00 l UNABLE 00:00: Noel TO URINATE 00 Active 05/28/2015 [place] CHEST PAIN Diagnosis Active 2014-052015-05-01 Memoria 06-21 21:54:00 l CHEST 00:00: Noel PAIN 00 Active 04/20/2015 [facility], [place] FLANK PAIN Diagnosis Active 2015-02-02 Memoria 02-02 17:03:00 l FLANK 00:00: Noel PAIN 00 Active 02/02/2015 [facility] 722.93 - Diagnosis Active 2014-11-21 M emoria DISC DIS - 16:48:00 l NEC/NO 722.93 - 00:01: Pankaj n 724.02 - DISC DIS 00 "SPIN NEC/NO 724.02 - "SPIN Active 09/20/2014 [facility] SPITTING Diagnosis Active 2015-10-29 M emoria UP BLOOD, 07-06 10:05:00 l COUGHING SPITTING 12:00: Herm pinky UP MUCUS UP BLOOD, 00 COUGHING UP MUCUS Active 07/06/2014 [place] 785.6 - Diagnosis Active 2013-052014-08-06 Me moria ENLARGEMEN - 10:58:00 l T LYM 785.6 - 00:01: [place] ENLARGEMEN 00 T LYM Active 03/30/2014 [facility] MEDISTINAL Diagnosis Active 2013-052014-04-02 Memoria LYMPADENOP 05-23 06:14:00 l ATHY 00:00: [place] MEDISTINAL 00 LYMPADENOP ATHY Active 03/23/2014 [facility] HEMOPTYSIS Diagnosis Active 2013-052014-02-26 Memoria 0-19 00:32:00 l 00:00: [place] HEMOPTYSIS 00 Active 02/25/2014 [facility] ACS, CHEST Diagnosis Active 2013-052014-02-27 Memoria PAIN 0-19 07:54:00 l ACS, 00:00: Noel CHEST PAIN 00 Active 02/25/2014 [facility] MULTIFOCAL Diagnosis Active 2013-052014-03-13 Memoria PNEUMONIA, 0-19 17:32:00 l HEMOPTYSIS 00:00: Pankaj pena , ACS, C MULTIFOCAL 00 PNEUMONIA, HEMOPTYSIS , ACS, C Active 02/25/2014 [facility] A-FIB, Diagnosis Active 2014-02-02 Mem oria TACHYCARDI - 22:29:00 l A A-FIB, 21:00: Noel TACHYCARDI 00 A Active 01/25/2014 [facility] MEDIASTINA Diagnosis Active 2012-07-21 Memoria L 3-07 11:17:00 l LYMPHADENO 00:00: Pankaj pena PAUL MEDIASTINA 00 L LYMPHADENO PAUL Active 07/14/2012 [place] 486 - Diagnosis Active 2012-07-14 Mem oria "PNEUMONIA 1-22 15:30:00 l , ORGA" 486 - 00:01: Noel "PNEUMONIA 00 , ORGA" Active 05/31/2012 [facility] [place] ACUTE MA, Diagnosis Active 2011-052012-03-07 Memoria NSTEMI 0-18 08:55:00 l ACUTE 00:00: Noel MA, NSTEMI 00 Active 02/25/2012 [facility] LUMBAR Diagnosis Active 2011-12-14 Mem oria SPINAL 7- 21:47:00 l STENOSIS LUMBAR 00:00: Pankaj pena SPINAL 00 STENOSIS Active 12/01/2011 [facility] LUMBAR Diagnosis Active 2012-02-05 Mem oria STENOSIS, - 15:16:00 l LUMBAR LUMBAR 00:00: Noel RADICULOPA STENOSIS, 00 THY LUMBAR RADICULOPA THY Active 09/08/2011 [facility] GI BLEED Diagnosis Active 2011-09-02 M emoria 4-18 22:00:00 l GI BLEED 15:00: Pankaj n 00 Active 08/26/2011 [place] CHEST Diagnosis Active 2011-07-07 Mem oria PAIN, 2- 12:57:00 l THROMBOCYT CHEST 08:00: Jessica nn OPENIA PAIN, 00 THROMBOCYT OPENIA Active 07/05/2011 [facility] BIJAL Diagnosis Active 2011-08-22 Mem oria - 15:27:00 l BIJAL 00:00: [place] 00 Active 05/18/2011 [place] Cardiac Problem Active 2010-052018-12-03 Kaz david catheteriz 06-29 22:16:39 l ation Cardiac 00:00: Noel (procedure catheteriz 00 ) ation (procedure ) Active 04/28/2011 Problem 12/03/2018 [facility] [place],[facility] [place] Cardiac Problem Active 2010-052012-07-23 Kaz david catheteriz 2 09:02:15 l ation Cardiac 00:00: Noel catheteriz 00 ation Active 04/28/2011 Problem 07/23/2012 [facility], [facility] [place],[facility] [place] ATRIAL Diagnosis Active 2010-052011-04-30 Mem oria FIB, - 15:36:00 l UNSTABLE ATRIAL 15:47: Pankaj pena ANGINA FIB, 00 UNSTABLE ANGINA Active 04/27/2011 [facility] TEAR Diagnosis Active 2010-052011-09-30 Mem oria MEDIAL - 17:50:00 l MENISCUS TEAR 00:00: Noel MEDIAL 00 MENISCUS Active 03/16/2011 [place] BLOOD IN Diagnosis Active 2010-052011-03-27 M emoria STOOL 0-06 15:38:00 l BLOOD IN 00:00: Pankaj n STOOL 00 Active 02/12/2011 [place] Atrial Problem Active 2018-12-03 Memor ia fibrillati 22:16:39 l on Atrial [place] (disorder) fibrillati on (disorder) Active Problem 12/03/2018 [facility] [place],[facility] [place] Asbestosis Problem Active 2018-12-03 M emoria (disorder) 22:16:39 l [place] Asbestosis (disorder) Active Problem 12/03/2018 [facility] [place],[facility] [place] Congestive Problem Active 2018-12-03 M emoria heart 22:16:39 l failure Noel (disorder) Congestive heart failure (disorder) Active Problem 12/03/2018 [facility] [place],[facility] [place] Dizziness Problem Active 2018-12-03 Me moria (finding) 22:16:39 l Noel Dizziness (finding) Active Problem 12/03/2018 [facility] [place],[facility], [place] Deep Problem Active 2018-12-03 Memor ia venous 22:16:39 l thrombosis Deep Pankaj n of lower venous extremity thrombosis (disorder) of lower extremity (disorder) Active Problem 12/03/2018 [facility] [place],[facility], [place] Gout Problem Active 2018-12-03 Memor ia (disorder) 22:16:39 l Gout Noel (disorder) Active Problem 12/03/2018 [facility] [place],[facility], [place] Hypertensi Problem Active 2018-12-03 M emoria ve 22:16:39 l disorder, [place] systemic Hypertensi arterial ve (disorder) disorder, systemic arterial (disorder) Active Problem 12/03/2018 [facility] [place],[facility], [place] Myocardial Problem Active 2018-12-03 M emoria infarction 22:16:39 l (disorder) Pankaj n Myocardial infarction (disorder) Active Problem 12/03/2018 [facility] [place],[facility], [place] Monoclonal Problem Active 2018-12-03 M emoria gammopathy 22:16:39 l (disorder) Pankaj n Monoclonal gammopathy (disorder) Active Problem 12/03/2018 low platelets [facility] [place],[facility], [place] Morbid Problem Active 2018-12-03 Memor ia obesity 22:16:39 l (disorder) Morbid Herm pinky obesity (disorder) Active Problem 12/03/2018 [facility] [place],[facility] Pain Problem Active 2018-12-03 Memor ia (finding) 22:16:39 l Pain [place] (finding) Active Problem 12/03/2018 [facility] [place],[facility], [place] Sleep Problem Active 2018-12-03 Memor ia apnea 22:16:39 l (finding) Sleep Pankaj n apnea (finding) Active Problem 12/03/2018 [facility] [place],[facility], [place] Dizziness Problem Active 2011-08-30 Me moria 09:29:29 l [place] Dizziness Active Problem 08/30/2011 [facility], [place] AF - Problem Active 2012-07-23 Memor ia Atrial 09:02:15 l fibrillati AF - Pankaj n on Atrial fibrillati on Active Problem 3 [facility], [facility] [place],[facility], [place] Atrial Problem Active 2012-07-23 Memor ia fibrillati 09:02:15 l on Atrial [place] fibrillati on Active Problem 3 [place] Diabetes Problem Active 2012-07-23 Mem oria mellitus 09:02:15 l Diabetes Pankaj n mellitus Active Problem 07/23/2012 [place] Dizziness Problem Active 2012-07-23 Me moria 09:02:15 l Noel Dizziness Active Problem 07/23/2012 [facility], [facility] [place],[facility], [place] Fusion Problem Active 2012-07-23 Memor ia 09:02:15 l Fusion [place] Active Problem 07/23/2012 [facility], [facility] [place],[facility], [place] HTN - Problem Active 2012-07-23 Memor ia Hypertensi 09:02:15 l on HTN - Noel Hypertensi on Active Problem 3 [facility] [place], [place] Pain Problem Active 2012-07-23 Memor ia 09:02:15 l Pain [place] Active Problem 07/23/2012 [facility], [facility] [place],[facility], [place] Sleep Problem Active 2012-07-23 Memor ia apnea 09:02:15 l Sleep [place] apnea Active Problem 07/23/2012 [place] Fused Problem Active 2016-03-14 Memor ia structure 02:15:12 l (morpholog Fused Jessica nn ic structure abnormalit (morpholog y) ic abnormalit y) Active Problem 6 [facility], [place] CHEST PAIN Diagnosis Active 2011-02-16 Memoria NOS 11:42:00 l CHEST Noel PAIN NOS Active [place] ATRIAL Diagnosis Active 2014-02-02 Mem oria FIBRILLATI 22:29:00 l ON ATRIAL Noel FIBRILLATI ON Active [facility] ANGINA Diagnosis Active 2011-04-30 Mem oria DECUBITUS 15:36:00 l ANGINA Noel DECUBITUS Active [facility] SLEEP Diagnosis Active 2011-08-22 Mem oria APNEA NOS 15:27:00 l SLEEP [place] APNEA NOS Active [place] GASTROINTE Diagnosis Active 2011-09-[address] HEMORR 22:00:[address] HEMORR NOS Active [place] LUMB/LUMBO Diagnosis Active 2012-02-05 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 Active [facility] SPIN Diagnosis Active 2012-02-05 Mem oria STEN,LUMBR 15:16:00 l WO OMARI SPIN [place] STEN,LUMBR WO OMARI Active [facility] LUMBOSACRA Diagnosis Active 2012-02-05 Memoria L 15:16:00 l SPONDYLOSI Pankaj n S LUMBOSACRA L SPONDYLOSI S Active [facility] AMI Diagnosis Active 2012-03-07 Mem oria NOS-INITIA 08:55:00 l L EPISODE AMI [place] NOS-INITIA L EPISODE Active [facility] PNEUMONIA, Diagnosis Active 2014-03-13 Memoria ORGANISM 17:32:00 l NOS [place] PNEUMONIA, ORGANISM NOS Active [facility] ENLARGEMEN Diagnosis Active 2014-04-02 Memoria T LYMPH 06:14:00 l NODES Noel ENLARGEMEN T LYMPH NODES Active [facility] CHEST Diagnosis Active 2015-05-01 Mem oria PAIN, 21:54:00 l UNSPECIFIE CHEST Jessica nn D PAIN, UNSPECIFIE D Active [facility] ILLNESS, Diagnosis Active 2018-11-30 M emoria UNSPECIFIE 04:35:00 l D ILLNESS, Pankaj n UNSPECIFIE D Active [facility] ACUTE Diagnosis Active 2017-03-22 Mem oria EMBOLISM 08:39:00 l AND ACUTE Noel THOMBOS EMBOLISM UNSP DEEP AND VEI THOMBOS UNSP DEEP VEI Active [facility] SYNCOPE Diagnosis Active 2017-04-20 Me moria AND 21:57:00 l COLLAPSE SYNCOPE Jessica nn AND COLLAPSE Active [facility] ANEMIA, Diagnosis Active 2017-04-20 Me moria UNSPECIFIE 21:57:00 l D ANEMIA, [place] UNSPECIFIE D Active [facility] UNSPECIFIE Diagnosis Active 2018-04-19 Memoria D ATRIAL 16:22:00 l FIBRILLATI Pankaj n ON UNSPECIFIE D ATRIAL FIBRILLATI ON Active [facility] HEART Diagnosis Active 2019-01-17 Mem oria FAILURE, 09:46:00 l UNSPECIFIE HEART Jessica nn D FAILURE, UNSPECIFIE D Active [facility] BENIGN Diagnosis Active 2018-11-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:14:00 l 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 Active [facility] RECURRENT Diagnosis Active 2018-11-30 Memoria AND PERST 14:14:00 l HEMATURIA Noel W UNSP MOR RECURRENT AND PERST HEMATURIA W UNSP MOR Active [facility] Illness, Problem 2018-12-03 Mem oria unspecifie 22:16:39 l d Illness, Pankaj n unspecifie d 12/03/2018 [facility] Immune Problem 2018-10-16 Memor ia thrombocyt 13:38:32 l 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 10/16/2018 [facility] Hypertensi Problem 2018-10-16 M emoria ve heart 13:38:32 l and [place] chronic Hypertensi kidney ve heart disease and with heart chronic failure kidney and stage disease 1 through with heart stage 4 failure chronic and stage kidney 1 through disease, stage 4 or chronic unspecifie kidney d chronic disease, kidney or disease unspecifie d chronic kidney disease 10/16/2018 [facility] Paroxysmal Problem 2018-10-16 M emoria atrial 13:38:32 l fibrillati Pankaj n on Paroxysmal atrial fibrillati on 10/16/2018 [facility] Encounter Problem 2018-10-16 Me moria for 13:38:32 l immunizati Pankaj n on Encounter for immunizati on 10/16/2018 [facility] Metabolic Problem 2018-10-16 Me moria syndrome 13:38:32 l Noel Metabolic syndrome 10/16/2018 [facility] Morbid Problem 2018-10-16 Memor ia (severe) 13:38:32 l obesity Morbid Noel due to (severe) excess obesity calories due to excess calories 10/16/2018 [facility] Dilated Problem 2018-10-16 Kaz david cardiomyop 13:38:32 l athy Dilated [place] cardiomyop athy 9 [facility] 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 13:38:32 l heart [place] disease of Atheroscle [place] rotic coronary heart artery disease of without [place] angina coronary pectoris artery without angina pectoris 10/16/2018 [facility] Chronic Problem 2018-10-16 Kaz david kidney 13:38:32 l disease, Chronic Jessica nn stage 3 kidney (moderate) disease, stage 3 (moderate) 10/16/2018 [facility] Hyperlipid Problem 2018-10-16 M emoria emia, 13:38:32 l unspecifie Pankaj n d Hyperlipid emia, unspecifie d 10/16/2018 [facility] Bronchitis Problem 2018-10-16 M emoria , not 13:38:32 l specified [place] as acute Bronchitis or chronic , not specified as acute or chronic 10/16/2018 [facility] Unspecifie Problem 2018-10-16 M 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:38:32 l osteoarthr Pankaj n itis, Unspecifie unspecifie d d site osteoarthr itis, unspecifie d site 10/16/2018 [facility] Gout, Problem 2018-10-16 Memor ia unspecifie 13:38:32 l d Gout, Noel unspecifie d 10/16/2018 [facility] Presence Problem 2018-10-16 Mem oria of cardiac 13:38:32 l pacemaker Presence Her [place] of cardiac pacemaker 10/16/2018 [facility] Personal Problem 2018-10-16 Mem oria history of 13:38:32 l nicotine Personal Herm pinky dependence history of nicotine dependence 10/16/2018 [facility] 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 10/16/2018 [facility] Heart Problem 2018-10-16 Memor ia failure, 13:38:32 l unspecifie Heart Jessica nn d failure, unspecifie d 10/16/2018 [facility] Coronary Problem 2018-10-16 Mem oria angioplast 13:38:32 l y status Coronary Herm pinky angioplast y status 10/16/2018 [facility] Personal Problem 2018-10-16 Mem oria history of 13:38:32 l transient Personal Her [place] ischemic history of attack transient (TIA), and ischemic cerebral attack infarction (TIA), and without cerebral residual infarction deficits without residual deficits 10/16/2018 [facility] Anemia, Problem 2018-10-16 Kaz david unspecifie 13:38:32 l d Anemia, [place] unspecifie d 10/16/2018 [facility] Sleep Problem 2018-10-16 Memor ia apnea, 13:38:32 l unspecifie Sleep Jessica nn d apnea, unspecifie d 10/16/2018 [facility] Hypotensio Problem 2018-10-16 M emoria n, 13:38:32 l unspecifie Pankaj n d Hypotensio n, unspecifie d 10/16/2018 [facility] Personal Problem 2018-10-16 Mem oria history of 13:38:32 l other Personal Pankaj n venous history of thrombosis other and venous embolism thrombosis and embolism 10/16/2018 [facility] Old Problem 2018-10-16 Memor ia myocardial 13:38:32 l infarction Old Pankaj n myocardial infarction 10/16/2018 [facility] 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 13:38:32 l [place] Monoclonal gammopathy 10/16/2018 [facility] Chest pain Problem Inactiv 2012-07-23 Memoria e 09:02:15 l Chest Noel pain Inactive Problem 07/23/2012 [facility], [facility] [place],[facility] [place] Nausea Problem Inactiv 2012-07-23 Kaz david e 09:02:15 l Nausea Noel Inactive Problem 07/23/2012 [facility], [facility] [place],[facility] [place] Cough Problem Inactiv 2012-07-23 Kaz david e 09:02:15 l Cough Noel Inactive Problem 07/23/2012 [facility], [facility] [place],[facility] [place] Cerebrovas Problem Resolve 2018-12-03 Memoria cular d 22:16:39 l accident [place] (disorder) Cerebrovas cular accident (disorder) Resolved Problem 12/03/2018 [facility] [place],[facility] [place] Diabetes Problem Resolve 2018-12-03 Me moria mellitus d 22:16:39 l (disorder) Diabetes He rmann mellitus (disorder) Resolved Problem 12/03/2018 pt states he is not a diabeticPA TIENT STATES HE IS NOT A DIABETICbo rder line [facility] [place],[facility] [place] Pneumonia Problem Resolve 2018-12-03 M emoria (disorder) d 22:16:39 l Noel Pneumonia (disorder) Resolved Problem 12/03/2018 [facility] [place],[facility] [place] CHF - Problem Resolve 2012-07-23 Kaz david Congestive d 09:02:15 l heart CHF - Noel failure Congestive heart failure Resolved Problem 07/23/2012 [facility] [place], [place] DVT - Deep Problem Resolve 2012-07-23 Memoria vein d 09:02:15 l thrombosis DVT - Jessica nn of lower Deep vein limb thrombosis of lower limb Resolved Problem 07/23/2012 [facility] [place] [place] History of Past Illness Condition Condition Condition Status Onset Resolution Last Treating Co mments Source Name Details Category Date Date Treatment Clinician Date Sick sinus Problem 2017-052018-10-16 2018-10-16 Memoria syndrome 06-07 13:38:32 13:38:32 l Sick 05:28: Noel sinus 29 syndrome 8 10/16/2018 [facility] Discharge Problem 2015-05-31 2015-05-31 Memoria Diagnosis: 05-28 04:51:27 04:51:27 l Chronic 06:00: Noel renal Discharge 00 insufficie Diagnosis: ncy Chronic renal insufficie ncy 05/28/2015 05/31/2015 [place] Discharge Problem 2015-05-31 2015-05-31 Memoria Diagnosis: 05-28 04:51:27 04:51:27 l Acute 06:00: Noel urinary Discharge 00 tract Diagnosis: infection Acute urinary tract infection 05/28/2015 05/31/2015 [place] Discharge Problem 2015-02-05 2015-02-05 Memoria Diagnosis: 02-02 03:21:07 03:21:07 l Accidental 05:00: Pankaj n fall Discharge 00 Diagnosis: Accidental fall 02/02/2015 02/05/2015 [facility] Discharge Problem 2015-02-05 2015-02-05 Memoria Diagnosis: 02-02 03:21:07 03:21:07 l Contusion 05:00: [place] of hip Discharge 00 Diagnosis: Contusion of hip 02/02/2015 02/05/2015 [facility] Discharge Problem 2014-07-08 2014-07-08 Memoria Diagnosis: 07-06 20:37:37 20:37:37 l Hemoptysis 06:00: Pankaj n Discharge 00 Diagnosis: Hemoptysis 07/06/2014 07/08/2014 [place] Allergies, Adverse Reactions, Alerts Allergy Allergy Status [...] s to drug Sulfa Propensi Active 2016-05 [place] (Sulfona ty to 2-05 Methodi mide adverse 00:00: st Antibiot reaction 00 ics) s to drug sulfa sulfa Active Memoria drugs drugs l Noel Plavix Plavix Active Memoria l [place] Bactrim Bactrim Active Severe Memoria l Noel NKFA NKFA Active Memoria l [place] Social History Social Habit Start Date Stop Date Quantity Comments Source Sex Assigned At [place] M ethodist Social History 2018-03-25 2018-03-25 [facility] ermann 23:48:44 23:48:44 Alcohol intake 2017-04-23 2017-04-23 [facility] thodist 00:00:00 00:00:00 non-drinker of alcohol (finding) Smoking Status Start Date Stop Date Source Never smoker [place] Pritesh t Medications Ordered Filled Start Stop Current [...] Cordarone) Saline No Notes: Memoria Flush 0.9% 7-24 Same as: l 14:00: BD Posiflush Sterile Furosemide No Notes: Memor ia 7-24 (Same as: l 14:00: Lasix) carvedilol No Notes: Memor ia 7-24 Give with l 14:00: food. Noel 00 (Same As: Coreg) Aspirin 81 No [...] 0.9% 11-30 Same as: l 06:21: BD Noel 00 [...] Weight 137.727, kg, Start date: 03/28/18 14:12:00 INGREDIENT SPECIALIST, Stop date: 03/28/18 14:12:00 INGREDIENT SPECIALIST Midazolam 2017-05 No 2 mg, Memoria 1-19 Route: IV, l 20:12: ONCE, Dosing Weight 137.727, kg, Start date: 03/28/18 14:12:00 INGREDIENT SPECIALIST, Stop date: 03/28/18 14:12:00 INGREDIENT SPECIALIST metoprolol 2017-05 No Notes: Memor ia tartrate -19 (Same as: l 03:00: Lopressor) Warfarin 2017-05 No Notes: Memoria 05-27 Nurse to l 23:00: ensure documentat ion [...] P Waste Black Insulin 2017-05 No Notes: [place] Lispro 1-17 (Same as: l 18:50: Humalog ) Roll in palms of hands gently; Do not shake `vigorousl y. "Single Patient Use Only " WASTE: F/P - Black; E - Municipal Trash Bin Stable for 28 days at room temperatur e. Expires in days from ____Date Glucagon 2017-05 No 1 mg, Memoria 1-17 Route: IM, l 18:50: Drug form: [place] PDR/INJ, PRN, Dosing Weight 137.727, kg, PRN Blood Glucose Results, Start date: 03/26/18 12:50:00 INGREDIENT SPECIALIST, Duration: 30 day, Stop date: 04/25/18 12:49:00 INGREDIENT SPECIALIST Dextrose 2017-05 No 12.5 gm, Memor ia 50% Syringe -17 25 mL, l 18:50: Route: [place] 00 IVP, Drug Form: INJ, Dosing Weight 137.727, kg, PRN, PRN Blood Glucose Results, Start date: 03/26/18 12:50:00 INGREDIENT SPECIALIST, Duration: 30 day, Stop date: 04/25/18 12:49:00 INGREDIENT SPECIALIST Senokot 2017-05 No Notes: Memoria 1-17 (Same as: l 15:00: Senokot) [place] docusate 2017-05 No Notes: Memoria sodium 100 -17 (Same as: l mg oral 15:00: Colace) Noel capsule (Do Not Crush) Allopurinol 2017-05 No Notes: Kaz david -17 (Same as: l 15:00: Zyloprim) [place] Amoxicillin 2017-05 No Notes: Kaz david / 1-17 With food. l Clavulanate 15:00: (Same as: H erm Augmentin 875) Prednisone 2017-05 No Route: PO, M emoria 1-17 Daily, l 15:00: Dosing Noel 00 Weight 137.727, kg, Start date: 03/26/18 9:00:00 INGREDIENT SPECIALIST, Duration: 30 day, Stop date: 04/24/18 9:00:00 INGREDIENT SPECIALIST Losartan 2017-05 No Notes: Memoria 1-17 (Same as: l 15:00: Cozaar) Noel Aspirin 81 2017-05 No Notes: Do Me moria MG Enteric -17 not crush l Coated 15:00: or chew. Noel Tablet 00 (Same As: Ecotrin) Lovenox 2017-05 No Notes: Memoria 1-17 (Same as: l 03:00: Lovenox) atorvastati 2017-05 No Notes: Kaz david n 1-17 (Same as: l 03:00: Lipitor) DuoNeb 2017-05 No Notes: Memoria inhalation -16 (Same as: l solution 23:22: Duoneb) Pankaj n Amiodarone 2017-05 No Notes: Memor ia 1-16 (Same as: l 23:00: Cordarone) gabapentin 2017-05 No Notes: Memor ia 100 MG Oral 16 (Same as: l Capsule 23:00: Neurontin) SENOKOT-S 2017-05 No 1 tab, Memori a 16 Route: PO, l 23:00: Dosing Weight 137.727, kg, BID, Start date: 03/25/18 17:00:00 INGREDIENT SPECIALIST, Duration: 30 day, Stop date: 04/24/18 9:00:00 INGREDIENT SPECIALIST carvedilol 2017-05 No Notes: Memor ia -16 Give with l 23:00: food. (Same As: Coreg) 200 ACTUAT 2017-05 No 2 puff, Kaz david Albuterol 05-25 Route: l 0.09 22:51: INHALER, [place] MG/ACTUAT / 00 Drug Form: Ipratropium AERO/A, [place] Dosing 0.018 Weight MG/ACTUAT 137.727, Metered kg, BID, Dose PRN Inhaler Wheezing, [Combivent] Start date: 03/25/18 16:51:00 INGREDIENT SPECIALIST, Duration: 30 day, Stop date: 04/24/18 16:50:00 INGREDIENT SPECIALIST gabapentin 2017-05 Yes 200 mg = 2 [...] emoria 1-16 BID, 0 l 22:32: Refill(s) [place] 00 Losartan 2017-05 No 100 mg, Memori a 1-16 PO, Daily, l 22:32: 0 [place] 00 Refill(s) warfarin 2017-05 No 2.5 mg = 1 Mem oria 2.5 mg oral 1-16 tab, PO, l tablet 22:32: Daily, 0 Refill(s) Prednisone 2017-05 No See Memoria 16 Instructio l 22:32: ns, 4 TABS Noel 00 DAILY FOR 4 DAYS SINCE EN 3 TABS DAILY FOR 4 DAYS,2 TABS DAILY FOR 4 DAYS,THEN 1 TAB DAILY FOR 4 DAYS, 0 Refill(s) Aspirin 81 2017-05 Yes 81 mg = 1 Me moria MG Enteric 1-16 tab, PO, l Coated 22:32: Daily, # [place] Tablet 00 90 tab, 3 Refill(s) allopurinol [...] 15:00: Zyloprim) atorvastati 2016-05 No Notes: Kaz daivd n 2- (Same as: l 15:00: Lipitor) [...] SENOKOT-S 2016-05 No 1 tab, Memori a 30 Route: PO, l 23:00: Dosing [place] Weight 145.909, kg, BID, Start date: 04/08/17 17:00:00 INGREDIENT SPECIALIST, Duration: 30 day, Stop date: 05/08/17 9:00:00 INGREDIENT SPECIALIST carvedilol 2016-05 No Notes: Memor ia 1-30 Give with l 23:00: food. Noel 00 (Same As: Coreg) Senokot 2016-05 No Notes: Memoria -30 (Same as: l 23:00: Senokot) [place] 00 200 ACTUAT 2016-05 No Notes: Memor ia Albuterol -30 Same as: l 0.09 22:48: Combivent [place] MG/ACTUAT / 00 Respimat Ipratropium WASTE: [place] Aerosol - 0.018 Return to MG/ACTUAT Pharmacy Metered Dose Inhaler [Combivent] Insulin 2016-05 No Notes: Memoria Lispro - Roll in l 22:41: palms of [place] hands gently; Do not shake `vigorousl y. [...] Blood Glucose Results, Start date: 04/08/17 16:41:00 INGREDIENT SPECIALIST, Duration: 30 day, Stop date: 12/30/17 16:40:00 INGREDIENT SPECIALIST Dextrose 2016-05 No 25 gm, 50 Kaz david 50% Syringe 1-30 mL, Route: l 22:41: IVP, Drug Noel 00 Form: INJ, Dosing Weight 145.909, kg, PRN, PRN Blood Glucose Results, Start date: 04/08/17 16:41:00 INGREDIENT SPECIALIST, Duration: 30 day, Stop date: 05/08/17 16:40:00 INGREDIENT SPECIALIST carvedilol 2016-05 No 25 mg = 1 Me moria 25 mg oral 1-30 tab, PO, l tablet 20:52: BID, # 180 Jessica nn 00 tab, 0 Refill(s) Golytely 2016-05 No Notes: Memoria 1-13 (polyethyl l 19:56: irina glycol [place] electrolyt e solution 4 Liter bottle) (Same as: Col Moniyte) Acetaminoph 2016-05 No Notes: Do M emoria [...] ia -11 (Same as: l 23:00: Norvasc) [place] Potassium 2016-05 No Notes: Memori a Chloride -11 (Same as: l 18:04: K-Dur 20) Noel "Do Not Crush" With food and full glass of water tramadol 2016-05 No Notes: Not Mem oria hydrochlori -11 to exceed l de 50 MG 16:41: 400mg/day. Her [place] Oral Tablet 00 (Same As: Ultram) Tylenol 2016-05 No Notes: Do Memor ia -11 not exceed l 00:51: 4 gm/day. [place] 00 (Same as: Tylenol) Protonix 2016-05 No Notes: Memoria 1-10 Tablet l 17:44: should not [place] 00 be chewed or crushed. (Same as: Protonix) Enoxaparin 2016-05 No Notes: Memor ia 05-18 Nurse to l 19:30: ensure [place] 00 documentat ion of patient education per [...] 05-18 (Same as: l 16:51: K-Dur 20) [place] "Do Not Crush" With food and full glass of water argatroban 2016-05 No Notes: Memor ia 100 MG/ML 05-18 Argatroban l Injectable 03:00: 50 mg/ 50 He rmann Solution 00 ml inj (1mg/1ml) WASTE: F/P - Black; E - Municipal Trash Bin MEDICATION WASTE Product Size: 50 mg Product Wasted: ___ mg bivalirudin 2016-05 No 250 mg, Mem oria 50 MG/ML 08 250 mL, l Injectable 17:37: Rate: Pankaj n Solution 00 Start at 0.05 mg/kg/hr, Dosing Weight 147.909, kg, Route: IV, Total Volume: 250, Start Date: 03/17/17 11:37:00 INGREDIENT SPECIALIST, Duration: 30 day, Stop date: 04/16/17 11:36:00 INGREDIENT SPECIALIST, Replace Every: 24 hr bivalirudin 2016-05 No 250 mg, Mem oria 50 MG/ML 08 250 mL, l Injectable 17:35: Rate: Pankaj n Solution 00 Start at 0.05 mg/kg/hr, Dosing Weight 147.909, kg, Route: IV, Total Volume: 250, Start Date: 03/17/17 11:35:00 INGREDIENT SPECIALIST, Duration: 30 day, Stop date: 04/16/17 11:34:00 INGREDIENT SPECIALIST, Replace Every: 24 hr Losartan 2016-05 No Notes: Memoria 05-17 (Same as: l 15:00: Cozaar) Noel 00 Furosemide 2016-05 No Notes: Memor ia -08 (Same as: l 15:00: Lasix) [place] May cause GI upset. Give with food or milk. carvedilol 2016-05 No Notes: Memor ia - Give with l 15:00: food. Noel (Same As: Coreg) Allopurinol 2016-05 No Notes: Kaz david -08 (Same as: l 15:00: Zyloprim) Potassium 2016-05 No Notes: Memori a Chloride 08 (Same as: l 14:17: K-Dur 20) "Do Not Crush" With food and full glass of water Lovenox 2016-05 No Notes: Memoria 05-17 Nurse to l 12:00: ensure [place] 00 documentat ion of patient education per anticoagul ation policy. (Same as: Lovenox) Senokot 2016-05 No Notes: Memoria 05-17 (Same as: l 03:00: Senokot) tamsulosin 2016-05 No Notes: Memor ia 08 (Same As: l 03:00: Flomax) "Do Not Crush" SENOKOT-S 2016-05 No 2 tab, Memori a 05-17 Route: PO, l 03:00: Dosing Weight 147.909, kg, Bedtime, Start date: 03/16/17 21:00:00 INGREDIENT SPECIALIST, Duration: 30 day, Stop date: 04/14/17 21:00:00 INGREDIENT SPECIALIST atorvastati 2016-05 No Notes: Kaz david n -08 (Same as: l 03:00: Lipitor) [place] 00 200 ACTUAT 2016-05 No Notes: Memor ia Albuterol 08 Same as: l 0.09 00:45: Combivent Noel MG/ACTUAT / 00 Respimat Ipratropium WASTE: [place] Aerosol - 0.018 Return to MG/ACTUAT Pharmacy Metered Dose Inhaler [Combivent] Streptococc 2016-05 No Notes: Kaz david us 1-08 Shake well l pneumoniae 00:35: prior to Her [place] serotype 1 45 use (Same capsular as: antigen Prevnar diphtheria 13) [id number] protein conjugate vaccine / Streptococc us pneumoniae serotype 14 capsular antigen diphtheria [id number] protein conjugate vaccine / Streptococc us pneumoniae serotype 18C capsular antigen d carvedilol 2016-05 No 25 mg = 1 Me moria 25 mg oral 1-08 tab, PO, l tablet 00:28: BID, 0 Noel 00 Refill(s) Furosemide 2016-05 Yes 40 mg, PO, M emoria 1-08 BID, 0 l 00:28: Refill(s) [place] 00 tamsulosin 2016-05 Yes 0.4 mg, Kaz david -08 PO, l 00:28: Bedtime, 0 [place] 00 Refill(s) Losartan 2016-05 Yes 100 mg, Memori a 08 PO, Daily, l 00:28: 0 [place] 00 Refill(s) sodium 2016-05 No 1,000 mL, Memori a chloride 05-16 Rate: 75 l 0.9% 1000 23:43: ml/hr, Pankaj n ml INJ 00 Infuse 1,000 mL over: 13.3 hr, Route: IV, Dosing Weight 147.909 kg, Total Volume: 1,000, Start date: 03/16/17 17:43:00 INGREDIENT SPECIALIST, Duration: 30 day, Stop date: 04/15/17 17:42:00 INGREDIENT SPECIALIST Lovenox 2016-05 No Notes: Wales[place] 05-16 Nurse to l 21:10: ensure documentat ion of patient education per [facility] ation policy. (Same as: Lovenox) carvedilol 2015-05 Yes 25 mg = 1 Me moria 25 mg oral 1-02 tab, PO, l tablet 19:40: Q12H, # [place] 00 180 tab, 0 Refill(s) AMIODarone 2015-05 Yes 200 mg = 1 M emoria 200 mg oral 1-02 tab, PO, l tablet 19:40: BID-Meals, Jessica nn 00 # 90 tab, 0 Refill(s) Amlodipine 2015-05 No Notes: Memor ia 05-11 (Same as: l 14:00: Norvasc) carvedilol 2015-05 No Notes: Memor ia - Give with l 02:00: food. Noel 00 (Same As: Coreg) Amiodarone 2015-05 No Notes: Memor ia 05-10 (Same as: l 22:00: Cordarone) Sodium 2015-05 No 250 mL, Memoria Chloride 05-10 Route: l 0.9% IV 20:01: IVPB, Start date: 03/10/16 15:01:00 CDT, Duration: 30 day, Stop date: 04/09/16 14:00:00 INGREDIENT SPECIALIST, PRN Line Flush BD Normal 2015-05 No [...] MG 14:00: Apresoline Her greenwood Oral Tablet ) May interfere w/enteral feedings Take With [...] Duration: 30 day, Stop date: 04/07/16 21:00:00 INGREDIENT SPECIALIST atorvastati 2015-05 No Notes: Kaz david n 05-10 (Same as: l 02:00: Lipitor) Alprazolam 2015-05 No Notes: Memor ia 0.5 MG Oral 05-10 With food l Tablet 02:00: or milk [place] 00 (Same as: Xanax) Senokot 2015-05 No Notes: Memoria - (Same as: l 02:00: Senokot) [place] 00 Colchicine 2015-05 No 0.6 mg, 1 Me moria 0.6 MG Oral 05-10 tab, l Tablet 00:58: Route: PO, Jessica nn 00 Drug form: TAB, BID, Dosing Weight 132.727, kg, PRN Shortness of breath, Start date: 03/09/16 19:58:00 CDT, Duration: 30 day, Stop date: 04/08/16 19:57:00 INGREDIENT SPECIALIST 200 ACTUAT 2015-05 No Notes: Memor ia Albuterol 05-10 Same as: l 0.09 00:58: Combivent [place] MG/ACTUAT / 00 Respimat Ipratropium WASTE: [place] Aerosol - 0.018 Return to MG/ACTUAT Pharmacy Metered Dose Inhaler [Combivent] acetaminoph 2015-05 No Notes: Kaz david en-hydrocod 05-10 (Same as: l one 325 00:08: [place] Noel mg-5 mg 00 325/5) Do oral tablet [...] Memoria 9-10 Take with l 14:00: food. Noel 00 pregabalin Yes 200 mg = 1 [...] tab, PO, l tablet 00:37: Daily, # [place] 00 90 tab, 1 Refill(s) Alprazolam Yes 0.5 mg = 1 M emoria 0.5 MG Oral 9-10 tab, PO, l Tablet 00:37: Bedtime, # Jessica nn 00 30 tab, 0 Refill(s) Albuterol No Notes: Memori a 0.833 MG/ML 01-16 (Same as: l / 23:01: Duoneb) Noel Ipratropium 00 [place] 0.167 MG/ML Inhalant Solution [DuoNeb] Nitroglycer No [...] 01-16 not exceed l 22:59: 4 gm/day. [place] 00 (Same as: Tylenol) Ondansetron No Notes: Kaz david 01-16 (Same as: l 22:59: Zofran) Noel 00 MEDICATION WASTE Product Size: 4 mg Product Wasted: ___ mg Morphine No Notes: Memoria 01-16 (Same l 22:59: as:MORPhin Noel 00 e Sulfate) Acetaminoph No Notes: Kaz david en 325 MG / 01-16 (Same as: l Hydrocodone 22:59: Bolivar Jessica nn Bitartrate 00 325/5) Do 5 [...] PO, l Oral 22:38: BID, X 10 [place] Capsule day, # 20 [Macrobid] cap, 0 Refill(s) Rocephin No Notes: Memoria 05-28 (Same As: l 22:12: Rocephin). Use with 100 mL NS and infuse over 30 min MEDICATION WASTE Product Size: 1000 mg Product Wasted: ___ mg Keflex 2014-05 No 500 mg, Memoria -16 Route: PO, l 22:14: Drug form: Noel [...] (Same as: l Tablet 15:00: Lasix) Noel 00 May cause GI upset. Give with food or milk. Lovenox 2014-05 No Notes: Memoria 2-13 (Same as: l 15:00: Lovenox) Noel metoprolol 2014-05 No Notes: Memor ia 2-13 (Same as: l 15:00: Toprol XL) Noel 00 May split tab, but do not crush. gabapentin 2014-05 No Notes: Memor ia 300 MG Oral 2-13 (Same as: l Capsule 14:00: Neurontin) Herm Hydralazine 2014-05 No Notes: Kaz david 2-13 (Same as: l 14:00: Apresoline [place] 00 ) May interfere w/enteral feedings Take With Food Lyrica 2014-05 No Notes: Memoria 2-13 Same as l 07:35: Lyrica Noel 00 200 ACTUAT 2014-05 No Notes: Memor ia Albuterol 2-13 Same as: l 0.09 07:30: Combivent Noel MG/ACTUAT / 00 Respimat Ipratropium [place] 0.018 MG/ACTUAT Metered Dose Inhaler [Combivent] Alprazolam [...] tab, PO, l Tablet 07:11: BID, 0 [place] 00 Refill(s) SENOKOT-S 2014-05 Yes 2 tab, PO, Me moria 2-13 Bedtime, 0 l 07:11: Refill(s) [place] amLODIPine 2014-05 Yes 10 mg = 1 Me moria 10 mg oral 2-13 tab, PO, l tablet 07:11: Daily, 0 [place] 00 Refill(s) Amoxicillin 2014-05 No 1 tab, PO, Memoria 875 MG / 2-13 BID, # 20 l Clavulanate 07:11: tab, 0 Herm pinky 125 MG Oral 00 Refill(s) Tablet Protonix 2014-05 No Notes: Memoria 2-13 Tablet l 07:11: should not Noel 00 be chewed or crushed. (Same as: Protonix) Hydralazine 2014-05 Yes 50 mg, PO, Memoria 2-13 TID, 0 l 07:11: Refill(s) [place] 00 Colchicine 2014-05 No 0.6 mg = 1 M emoria 0.6 MG Oral 2-13 tab, PO, 0 l Tablet 07:11: Refill(s) Pankaj n 00 pregabalin 2014-05 Yes 50 mg = 1 Me moria 50 MG Oral 2-13 cap, PO, l Capsule 07:11: PRN, daily Herm pinky [Lyrica] 00 PRN, 0 Refill(s) Sodium 2014-05 No 250 mL, Memoria Chloride - Route: l 0.9% IV 07:09: IVPB, [place] 00 Start date: 04/21/15 1:09:00, Duration: 30 day, Stop date: 05/21/15 1:08:00, PRN Line Flush BD Normal 2014-05 No Notes: Memori a Saline 06-22 (Same as: l Flush 07:09: BD [place] 00 Posiflush) acetaminoph 2014-05 No Notes: Do [...] / 02-02 (Same as: l Hydrocodone 21:30: Bolivar Jessica nn Bitartrate 00 325/5) Do 5 MG Oral not exceed Tablet 4gm/day of [[place] acetaminop 5/325] hen. Saline No Notes: Memoria Flush 0.9% 02-02 (Same as: l 21:18: BD Noel 00 Posiflush) Barium No Notes: Memoria Sulfate 02-02 Same as l 21:18: Readi-Cat [place] 2 Morphine No Notes: Memoria 02-02 (Same l 21:18: as:MORPhin [place] 00 e Sulfate) Saline No Notes: Memoria Flush 0.9% 07-07 (Same as: l 02:05: BD [place] 00 Posiflush) acetaminoph 2013-05 No Notes: Do M emoria en-codeine 06-02 not exceed l #3 14:55: 4gm/day of [place] 00 acetaminop hen. (Same as: Tylenol with Codeine # 3) Acetaminoph 2013-05 No Notes: Do M emoria en 06-02 not exceed l 14:55: 4 gm/day. [place] 00 (Same as: Tylenol) gabapentin 2013-05 Yes 600 mg = 2 M emoria 300 MG Oral 05-30 cap, PO, l Capsule 19:56: TID, 0 [place] 00 Refill(s) Zinacef 2013-05 No Notes: Memoria 05-30 (Same As: l 18:00: Kefurox, Noel Zinacef) Hydralazine 2013-05 No Notes: Kaz david [...] (Same as: l MEQ 12:48: K-Dur 20) [place] Extended 00 "Do Not Release Crush" Tablet With food and full glass of water Bumex 2013-05 No Notes: Memoria 0-26 (Same As: l 17:43: Bumex) [place] 00 Neurontin 2013-05 No Notes: Memori a 0-26 (Same as: l 14:00: Neurontin) Noel 00 gabapentin 2013-05 Yes 400 mg = 1 M emoria 400 MG Oral 0-26 cap, PO, l Capsule 11:49: TID, # 90 Jessica nn 00 cap, 0 Refill(s) Pradaxa 2013-05 No Notes: DO Memor ia 0-25 NOT break, l 14:00: chew or [place] 00 open capsules for administra tion. 120 [...] Memoria 0-24 (Same as: l 22:00: Lasix) [place] 00 May cause GI upset. Give with food or milk. Diovan 2013-05 No Notes: Memoria 0-24 Same as l 18:17: Diovan Noel 00 homatropine 2013-05 No Notes: Kaz david -hydrocodon 0-24 (Same as: l e 15:10: Hycodan, [place] 00 Hydromet) 120 ACTUAT 2013-05 No Notes: Memor ia Budesonide 0-24 (Same as: l 0.16 15:09: Symbicort) [place] MG/ACTUAT / 00 formoterol fumarate 0.0045 MG/ACTUAT [...] as: l / 15:05: Duoneb) Ipratropium 18 [place] 0.167 MG/ML Inhalant Solution [DuoNeb] Lasix 2013-05 [...] 0-24 Q4H, l syrup 12:42: Cough, # [place] 00 120 mL, 0 Refill(s) Amlodipine 2013-05 [...] Perles 0-21 (Same As: l 22:00: Tessalon [place] 00 Perles) "Do Not Crush" Budesonide 2013-05 No Notes: Memor ia 0.25 MG/ML 0-21 (Same As: l Inhalant 14:00: Pulmicort) Her green[place] Solution 00 [Pulmicort] Protonix 2013-05 No Notes: Memoria 0-21 Tablet l 14:00: should not Noel 00 be chewed or crushed. (Same as: Protonix) Allopurinol 2013-05 No Notes: Kaz david 0-21 (Same as: l 14:00: Zyloprim) Magnesium 2013-05 No 2 gm, 50 Kaz david Sulfate 0-21 mL, Route: l 12:19: IVPB, Drug [place] 00 form: INJ, ONCE, Dosing Weight 127.1, [...] l / 02:00: Duoneb) Noel Ipratropium 00 [place] 0.167 MG/ML Inhalant Solution [DuoNeb] Coreg 2013-05 No Notes: Memoria 0-21 Give with l 02:00: food. [place] 00 (Same As: Coreg) Acetylcyste 2013-05 No [...] l / 22:24: Duoneb) Noel Ipratropium 00 [place] 0.167 MG/ML Inhalant Solution [DuoNeb] Acetylcyste 2013-05 No 600 mg, 3 M emoria ine 200 0-20 mL, Route: l MG/ML 22:10: PO, Drug Noel Inhalant 00 form: Solution SOLN, BID, Dosing Weight 126.3, kg, Priority: NOW, Start date: 02/26/14 17:10:00, Duration: 1 day, Stop date: 02/27/14 17:00:00 Amiodarone 2013-05 No 200 mg, Kaz david 0-20 Route: PO, l 22:00: Drug form: [place] 00 TAB, BID, Dosing Weight 126.3, kg, [...] 0-20 With food l 18:23: or milk [place] (Same as: Xanax) 200 ACTUAT 2013-05 No Notes: Memor ia Albuterol 0-20 Same as: l 0.09 18:23: Combivent [place] MG/ACTUAT / 00 Respimat Ipratropium [place] 0.018 MG/ACTUAT Metered Dose Inhaler [Combivent] Cordarone 2013-05 No Notes: Memori a 0-20 (Same as: l 18:10: Cordarone) Noel Coreg 2013-05 No Notes: Memoria 0-20 Give with l 18:09: food. Noel (Same As: Coreg) atorvastati 2013-05 Yes 40 mg = 1 M emoria n 40 mg 0-20 tab, PO, l oral tablet 09:14: Bedtime, 0 [place] 00 Refill(s) carvedilol 2013-05 Yes 12.5 mg [...] tab, PO, l tablet 09:14: BID, 0 [place] 00 Refill(s) Sodium 2013-05 No 250 mL, Memoria Chloride 0-20 Route: l 0.9% IV 07:42: IVPB, Start date: 02/26/14 2:42:00, Duration: 30 day, Stop date: 03/28/14 1:41:00, PRN Line Flush BD Normal 2013-05 No Notes: Memori a Saline 0-20 (Same as: l Flush 07:42: BD Posiflush) aspirin 2013-05 No Notes: Memoria 0-20 Take with l 07:34: food. Ondansetron 2013-05 No Notes: Kaz david 0-20 (Same as: l 07:34: Zofran) Morphine 2013-05 No Notes: Memoria 0-20 (Same l 07:34: as:MORPhin [place] 00 e Sulfate) aspirin 2013-05 No Notes: Memoria 0-20 Take with l 05:28: food. Morphine 2013-05 No Notes: Memoria 0-20 (Same l 04:27: as:MORPhin [place] 00 e Sulfate) atorvastati Yes 40 mg = 2 M emoria n 20 mg -21 tab, PO, l oral tablet 13:00: Bedtime, # [place] 00 60 tab, 0 Refill(s) AMIODarone Yes 200 mg = 1 M emoria 200 mg oral -21 tab, PO, l tablet 13:00: BID, # [...] Not [Colace] Crush) Coreg No Notes: Memoria -20 Give with l 14:00: food. Noel 00 (Same As: Coreg) Cordarone No Notes: Memori a 01-27 (Same as: l 14:00: Cordarone) [place] Magnesium No 2 gm, 50 Kaz david Sulfate 9-20 mL, Route: l 13:07: IVPB, Drug Noel 00 form: INJ, ONCE, Dosing Weight 119.801, kg, Start date: 01/27/14 8:07:00, Duration: 2 hr, Stop date: 01/27/14 8:07:00 Lipitor No Notes: Memoria 01-27 (Same As: l 02:00: Lipitor) Noel Magnesium No 2 gm, 50 Kaz david Sulfate 9-20 mL, Route: l 00:17: IVPB, Drug Noel form: INJ, ONCE, Dosing [...] moria 01-26 "Recommend l 21:29: ation: Use Noel 00 an in-line filter during administra tion [...] 01-26 Take on an l 14:00: Empty [place] Stomach (Same as: Lanoxin) Coreg No Notes: Memoria 01-26 Give with l 14:00: food. [place] 00 (Same As: Coreg) Nitroglycer No Notes: [...] 01-26 With food l 11:55: or milk [place] (Same as: Xanax) Morphine No Notes: Memoria 01-26 (Same as: l 11:52: MORPhine Noel 00 Sulfate) Acetaminoph No Notes: Kaz david en 325 MG / 01-26 (Same as: l Hydrocodone 11:52: Bol[place] Jessica nn Bitartrate 00 325/5) Do 5 MG Oral not exceed Tablet 4gm/day of [[place] acetaminop 5/325] hen. Lasix No Notes: Memoria [...] Daily, # l 10:22: 30 tab, 0 00 Refill(s) gabapentin Yes PO, BID, 0 M emoria 400 MG Oral 01-26 Refill(s) l Capsule 10:22: Noel [Neurontin] 00 tramadol Yes PO, Q12H, Kaz david hydrochlori 01-26 Pain, 0 l de 50 MG 10:22: Refill(s) Herm pinky Oral Tablet 00 200 ACTUAT Yes INHALER, Mem oria Albuterol 01-26 SOB, 0 l 0.09 10:22: Refill(s) [place] MG/ACTUAT / 00 Ipratropium [place] 0.018 MG/ACTUAT Metered Dose Inhaler [Combivent] Digoxin No 125 Memoria 01-26 microgram, l 10:22: PO, Daily, [place] 00 0 Refill(s) carvedilol No 25 mg = 1 Me moria 25 MG Oral 01-26 tab, PO, l Tablet 10:22: BID, # 180 Jessica nn [Coreg] 00 tab, 0 Refill(s) Bolivar Yes PO, PRN, Memoria 10/325 oral 3-13 Substituti l tablet 20:45: on [place] 32 Allowed, Maintenanc e Protonix 40 Yes PO, Daily, Memoria mg oral 3-13 Substituti l enteric 20:45: on Allowed Herm pinky coated 03 tablet enalapril 5 Yes PO, BID, Me moria mg oral 3-13 Substituti l tablet 20:44: on Allowed Ejssica nn 18 Coumadin 4 Yes PO, Daily, M emoria mg oral 3-13 Substituti l tablet 20:43: on Allowed Jessica nn 21 Omnipaque Yes Arnaldo R 100 mL, M emoria 300 3-04 [place] 400 ml/hr, l 18:00: Route: IV, Noel Drug Form: SOLN, ONCE, [...] 0.8 mL, l 06:00: m Catalan Route: [place] 00 SUB-Q, Drug form: INJ, [id number], Start date: 02/26/12 1:00:00, Duration: 30 day, [...] l sublingual 05:46: m Catalan Route: SL, [place] tablet 00 Drug form: TAB, Q5Min, PRN [...] No Bhagwat 10 mL, Mem oria Saline 019 [place] Route: l Flush 05:45: m Catalan IVP, Drug Herm pinky 00 Form: INJ, PRN, PRN Line Flush, Start date: 02/26/12 0:45:00, Duration: 30 day, Stop date: 03/26/12 23:44:00 [place] Yes Steffi 1 tab, PO, Kaz david /325 oral 12-07 Randee Q6H, PRN, l tablet 18:18: Judith-Pr 40 tab, He rmann 59 ashad for pain, Substituti on Allowed, Soft Stop, TAB Medrol Yes Steffi As Memoria Dosepak 4 12-07 Randee directed l mg Tablet 18:17: Judith-Pr on package [place] 13 ashad instructio ns, PO, Daily, 1 Pack, Substituti on Allowed, Take with or without foodTake with or without food Boliv[place] No Steffi 1 tab, Me moria oral [...] l units/mL 21:00: Francisco Javier mL, Route: [place] injectable 00 SUB-Q, solution Drug form: INJ, [...] Rate: 75 l 13:34: Francisco Javier ml/hr, Infuse over: 13.3 hr, Route: IV, [...] mL, Route: l 11:00: IV, Drug Noel form: INJ, Q6H, Start date: 12/05/11 6:00:00, Duration: 12 doses or times, Stop date: 12/08/11 0:00:00 magnesium 2011- No Adan 2 gm, 50 Me moria sulfate 12-04 Lovy mL, Route: l 10:00: IVPB, Drug [place] 00 form: INJ, ONCE, Start date: 12/05/11 [...] l 04:51: Francisco Javier IVP, Drug Jessica form: INJ, ONCE, PRN Nausea & Vomiting, [...] 0.1 mL, l 04:51: Francisco Javier Route: [place] 00 IVP, Drug form: INJ, Q2MIN, PRN [...] niCARdipine 2011- No Anayeli 0.25 mg, Memoria 7 Lexie 0.1 mL, l 04:51: Route: Noel [...] 2011- No Adan 10 unit, Me moria 7-26 Lovy 0.1 mL, l 22:30: Route: Noel [...] Lovy 0.05 mL, l units/mL 22:19: Route: [place] injectable 00 SUB-Q, solution Drug form: SOLN, Sliding Scale, PRN Blood Glucose Results, Start date: 12/03/11 17:19:00, Duration: 30 day, Stop date: 01/02/12 17:18:00 Humulin R 2011-0 No Adan 4 unit, Mem oria 100 7-26 Lovy 0.04 mL, l units/mL 22:17: Route: [place] injectable 00 SUB-Q, solution Drug form: SOLN, [...] day, Stop date: 01/02/12 17:15:00 Humulin R 2011-0 No Adan 1 unit, Mem oria 100 -26 Lovy 0.01 mL, l units/mL 22:15: Route: [place] injectable 00 SUB-Q, solution Drug form: SOLN, [...] insulin No Adan 10 unit, Kaz david 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 12-02 Lovy 0.1 mL, l H 17:38: Route: [place] 00 SUB-Q, Drug form: INJ, ONCE, Start date: 12/03/11 12:38:00, Stop date: 12/03/11 12:38:00 methylPREDN No Adan 60 mg, 1.5 Memoria ISolone - Lovy mL, Route: l 00:30: IV, Drug [place] 00 form: INJ, Daily, Start date: 12/02/11 19:30:00, Duration: 2 doses or times, Stop date: 12/03/11 9:00:00 torsemide 2011-0 No Adan 10 mg, 1 Me moria 7-25 Lovy tab, l 14:00: Route: PO, [place] 00 Drug form: TAB, Daily, Start date: 12/02/11 [...] 7-25 Lovy tab, l 02:00: Route: PO, [place] 00 Drug form: TAB, BID, Start date: 12/01/11 21:00:00, Duration: 30 day, Stop date: 12/31/11 17:00:00 gabapentin 2011-0 No Adan 600 mg, 2 Memoria 600 mg oral 7-25 Lovy cap, l tablet 02:00: Route: PO, Jessica nn Drug form: CAP, TID, Start date: 12/01/11 21:00:00, Duration: 30 day, Stop date: 12/31/11 14:00:00 atorvastati 2012-0 No Adan 10 mg, 1 Memoria n 7-25 Lovy tab, l 02:00: Route: PO, Drug form: TAB, QPM, Start date: 12/01/11 21:00:00, Duration: 30 day, Stop date: 12/31/11 17:00:00 promethazin No Adan 25 mg, 1 Memoria e [...] Duration: 30 day, Stop date: 12/31/11 19:20:00 [place] No Steffi 1 tab, Memoria 10/325 oral [...] ermann 28 tab, Substituti on Allowed, TAB [place] No Steffi 1 tab, PO, Kaz david [...] tab, PO, l tablet 18:12: BID, 60 [place] 14 tab, 1, 1, Substituti on Allowed, TAB [place] 5/325 Yes Yury R 1 tab, PO, Memoria oral tablet 4-20 Anderson Q4-6H, l 18:04: PRN, 30 [place] 08 tab, as needed for pain, Substituti on Allowed, Maintenanc e Flagyl 500 Yes Yury R 500 mg, 1 Memoria mg oral 4-20 Anderson tab, PO, l tablet 18:03: Q8H, 39 Noel 45 tab, Substituti on Allowed, TAB Cipro 500 Yes Yury R 500 mg, 1 Memoria mg oral 4-20 Anderson tab, PO, l tablet 18:03: Q12H, 26 [place] 19 tab, Substituti on Allowed, TAB Cipro No Yury R 400 mg, Mem oria 4-20 Anderson 200 mL, l 02:00: Route: [place] IVPB, Drug form: INJ, Q12H, Start date: 08/27/11 21:00:00, Duration: 30 day, Stop date: 09/26/11 9:00:00 Flagyl No Yury R 500 mg, Me moria 4-19 Anderson 100 mL, l 21:00: Route: [place] IVPB, Drug form: INJ, Q8H, Start date: 08/27/11 16:00:00, Duration: 30 day, Stop date: 09/26/11 8:00:00 Lyrica 2011- No Yury R 75 mg, 1 M emoria 08-26 Anderson cap, l 14:00: Route: PO, Drug form: CAP, Daily, Start date: 08/27/11 9:00:00, Duration: 30 day, Stop date: 09/25/11 9:00:00 lisinopril 2011- No Yury R 10 mg, 2 Memoria 08-26 Justin tab, l 14:00: Route: PO, Drug form: [...] Protonix No Arnaldo R 40 mg, 1 emoria 08-26 Morrison tab, l 14:00: Route: PO, Drug form: ECTAB, Daily, Start date: 08/27/11 9:00:00, Duration: 30 day, Stop date: 09/25/11 9:00:00 Visipaque 2011- Yes Juno 32,000 mg, M emoria 08-26 Abdulaziz 100 mL, l 13:33: [place] Route: IVP, Drug form: INJ, ONCE, Start date: 08/27/11 8:33:00, Stop date: 08/27/11 8:33:00 sotalol 0 No Yury R 80 mg, 1 Memoria 4-19 Anderson tab, l 02:40: Route: PO, Noel 00 Drug form: TAB, BID, Start date: 08/26/11 21:40:00, Duration: 30 day, Stop date: 09/25/11 17:00:00 ipratropium No Arnaldo R 0.5 mg, Memoria 0.02% -19 [place] 2.5 mL, l inhalation 01:00: Route: Jessica nn solution 00 NEB, Drug form: SOLN, Q4H, Start date: 08/26/11 20:00:00, Duration: 30 day, Stop date: 09/25/11 16:00:00 albuterol No Arnaldo R 2.49 mg, 3 Memoria 0.083% - Morrison mL, Route: l inhalation 01:00: NEB, Drug He rmann solution 00 form: SOLN, Q4H, Start date: 08/26/11 20:00:00, Duration: 30 day, Stop date: 09/25/11 16:00:00 Restoril No Yury R 15 mg, 1 Memoria 4-19 Anderson cap, l 00:55: Route: PO, [place] 00 Drug form: CAP, Bedtime, PRN Sleep, Start date: 08/26/11 19:55:00, Duration: 30 day, Stop date: 09/25/11 19:54:00 Bolivar 5/325 No Yury R 1 tab, Memoria oral tablet - Justin Route: PO, l 00:55: Drug Form: Noel 00 TAB, Q4H, PRN Pain, Start date: 08/26/11 19:55:00, Duration: 30 day, Stop date: 09/25/11 19:54:00 insulin No Yury R 4 unit, M emoria aspart -19 Justin 0.04 mL, l 00:38: Route: Noel 00 SUB-Q, Drug form: SOLN, Bedtime, PRN Blood Glucose Results, Start date: 08/26/11 19:38:00, Duration: 30 day, Stop date: 09/25/11 19:37:00 Dextrose No Yury R 12.5 gm, Memoria 50% Syringe 4-19 Anderosn 25 mL, l 00:38: Route: [place] 00 IVP, Drug Form: INJ, PRN, PRN Blood Glucose Results, Start date: 08/26/11 19:38:00, Duration: 30 day, Stop date: 09/25/11 19:37:00 glucagon 2011- No Yury R 1 mg, Me moria 4-19 Anderson Route: IM, l 00:38: Drug form: Noel 00 PDR/INJ, PRN, PRN Blood Glucose Results, Start date: 08/26/11 19:38:00, Duration: 30 day, Stop date: 09/25/11 19:37:00 ALPRAZOLam No Yury R 0.5 mg, 1 Memoria -19 Anderson tab, l 00:36: Route: PO, Drug form: [...] -18 Justin Route: IV, l 23:00: Daily, Start date: 08/26/11 18:00:00, Duration: 30 day, Stop date: 09/24/11 18:00:00 BD No Arnaldo R 15 mL, Memoria Posiflush 18 Morrison Route: l SF 22:34: IVP, Drug Form: INJ, PRN, PRN Line Flush, Start date: 08/26/11 17:34:00, Duration: 30 day, Stop date: 09/25/11 17:33:00 Jantoven 4 No 4 mg, 1 Kaz david mg oral -18 tab, PO, l tablet 22:13: QPM, 30 [place] 52 tab, Substituti on Allowed, TAB Lyrica 75 Yes Yury R 75 mg, 1 Memoria mg oral 4-18 Anderson cap, PO, l capsule 22:13: Daily, 90 Jessica nn 13 cap, Substituti on Allowed, CAP sotalol 80 Yes Yury R 80 mg, 1 Memoria mg oral 4-18 Anderson tab, PO, l tablet 22:12: BID, 180 [place] 43 tab, Substituti on Allowed, TAB omeprazole [...] Combivent Yes 2 puff, Memor ia inhalation 4-18 INHALER, l aerosol 22:07: Daily, 14 Jessica nn with 17 gm, adapter Substituti on Allowed, Maintenanc e morphine No Arnaldo R 1 mg, 0.5 Memoria Sulfate 4-18 Morrison mL, Route: l 22:07: IV, Drug Noel 00 form: INJ, Q4H, PRN as needed for [...] -28 Hoberman tab, l 03:00: Route: PO, Drug form: TAB, Bedtime, Start date: 07/06/11 21:00:00, Duration: 30 day, Stop date: 08/04/11 21:00:00 Lipitor 2011-0 No Oscar 10 mg, 1 Kaz david 2-28 Nien-Diane tab, l 03:00: Darian Route: PO, Drug form: TAB, Bedtime, Start date: 07/06/11 21:00:00, Duration: 30 day, Stop date: 08/04/11 21:00:00 niacin 500 2011-0 No Oscar 500 mg, 1 Memoria mg oral -28 Nien-Diane tab, l tablet, 03:00: Darian Route: PO, Herm Drug form: release ERTAB, Bedtime, Start date: 07/06/11 21:00:00, Duration: 30 day, Stop date: 08/04/11 21:00:00 Coumadin 2011-0 No Evaristo J 4.5 mg, Mem oria -27 Hoberman 1.5 tab, l 23:00: Route: PO, Drug form: TAB, Q5PM, Start date: 07/06/11 17:00:00, Duration: 30 day, Stop date: 08/04/11 17:00:00 [place] 3-6-9 2011-0 No Oscar [place] Mem oria 1200 mg 2-27 Nien-Diane 3-6-9 1200 l (own med) 23:00: Darian mg (own Jessica nn med), 1,200 mg, Drug form: MISC, Route: PO, TID, 07/06/11 17:00:00, Duration: 30 day, Stop date: 08/05/11 13:00:00 Protonix No Evaristo J 40 mg, 1 Me moria -27 Hoberman tab, l 22:30: Route: PO, Drug [...] 30 day, Stop date: 08/05/11 13:00:00 Lasix 2011-0 No Oscar 40 mg, 1 Memori a [...] Evaristo J 80 mg, 1 Me moria 2- Hoberman tab, l 15:00: Route: PO, Noel Drug form: TAB, Q12H, Start date: 07/06/11 9:00:00, Duration: 30 day, Stop date: 08/04/11 21:00:00 DiaBeta 2011-0 No Evaristo J 2.5 mg, 1 Me moria - Hoberman tab, l 15:00: Route: PO, [place] 00 Drug form: TAB, TID, Start date: 07/06/11 9:00:00, Duration: 30 day, Stop date: 08/04/11 17:00:00 K-Dur 10 2011-0 No Evaristo J 10 mEq, 1 M emoria 07-06 Hoberman tab, l 15:00: Route: PO, Noel 00 Drug form: ERTAB, Daily, Start date: 07/06/11 9:00:00, Duration: 30 day, Stop date: 08/04/11 9:00:00 Zaroxolyn 2011-0 No Evaristo J 5 mg, 2 Me moria 07-06 Hoberman tab, l 15:00: Route: PO, [...] 30 day, Stop date: 08/04/11 18:00:00 Astramorph No Oscar 4 mg, 4 Me moria [...] Route: IV, l 10:41: Darian Drug form: [place] PDR/INJ, PRN, PRN Blood Glucose Results, Start [...] Nien-Diane 0.1 mL, l 10:41: Darian Route: [place] 00 SUB-Q, Drug form: SOLN, Sliding Scale, PRN Blood Glucose Results, Start date: 07/06/11 4:41:00, Duration: 30 day, Stop date: 08/05/11 5:40:00 lactulose No Oscar 20 gm, 30 M emoria 07-06 Nien-Diane mL, Route: l 10:41: Darian PO, Drug [place] 00 form: SYRP, Daily, PRN Constipati on, Start date: 07/06/11 4:41:00, Duration: 30 day, Stop date: 08/05/11 4:40:00 Restoril 2011-0 No Oscar 30 mg, 1 Mem oria 2-27 Nien-Diane cap, l 10:41: Darian Route: PO, [place] 00 Drug form: CAP, Bedtime, PRN Sleep, Start date: 07/06/11 4:41:00, Duration: 30 day, Stop date: 08/05/11 4:40:00 Tylenol 2011- No Oscar 650 mg, 2 Mem oria 2-27 Nien-Diane tab, l 10:40: Darian Route: PO, [place] 00 Drug form: TAB, Q4H, PRN Pain/Fever [...] J 4 mg, Memor ia Sulfate 07-06 [facility] Route: l 04:23: IVP, ONCE, Priority: STAT, Start date: 07/05/11 22:23:00, Stop date: 07/05/11 22:23:00 Niaspan ER 2011- Yes 500 mg, 1 Me moria 500 mg oral 2-27 tab, PO, l tablet, 04:07: BID, 60 [place] extended 13 tab, release Substituti on Allowed warfarin 3 Yes 3 mg, 1 Kaz david mg oral 2-27 tab, PO, l tablet 04:06: Daily, 30 Pankaj n 14 tab, Substituti on Allowed, TAB ALPRAZOLam 0 Yes 0.5 mg, Kaz david -27 PO, [...] J 1 inch, Memoria in 2% 07-06 Route: l ointment 03:43: TOP, Drug Form: [...] 0.9% 07-06 Route: l 03:43: IVP, Drug [place] 00 Form: INJ, PRN, PRN Line Flush, [...] 07-05 Anderson tab, l 23:00: Route: PO, Drug [...] l 14:00: [place] SUB-Q, Drug form: INJ, [id number], Start date: 04/30/11 8:00:00, Duration: 30 day, Stop date: 05/29/11 20:00:00 Zofran 2010-05 No Kiritkumar 2 mg, 1 Me moria 2-21 A Mrorison mL, Route: l 20:35: IVP, Drug form: INJ, Q8H, PRN Nausea, Start date: 04/29/11 14:35:00, Duration: 30 day, Stop date: 05/29/11 14:34:00 NovoLog 2010-05 No Yury R 5 unit, M emoria FlexPen 2-21 Anderson 0.05 mL, l 19:22: Route: [place] 00 SUB-Q, Drug form: SOLN, Sliding Scale, PRN Blood Glucose Results, Start date: 04/29/11 13:22:00, Duration: 30 day, Stop date: 05/29/11 13:21:00 glucagon 2010-05 No Yury R 1 mg, Me moria 06-30 Justin Route: IV, l 19:22: Drug form: [place] 00 PDR/INJ, PRN, PRN Blood Glucose Results, [...] Yury R 2.5 mg, 1 Memoria - Anderson tab, l 03:00: Route: PO, [place] 00 Drug form: TAB, Bedtime, Start date: 04/28/11 21:00:00, Duration: 30 day, Stop date: 05/27/11 21:00:00 Lovenox 2010-05 No Yury R 80 mg, 0.8 Memoria 06-30 Justin mL, Route: l 02:00: SUB-Q, [place] Drug form: INJ, [id number], Start date: 04/28/11 20:00:00, Duration: 30 day, [...] A Morrison tab, l 15:00: Route: PO, [place] 00 Drug form: TAB, Daily, Start date: 04/28/11 9:00:00, Duration: 30 day, Stop date: 05/27/11 9:00:00 K-Dur 10 2010-05 No Kiritkumar 10 mEq, 1 Memoria 2-20 A Morrison tab, l 15:00: Route: PO, Noel Drug form: ERTAB, Daily, Start date: 04/28/11 9:00:00, Duration: 30 day, Stop date: 05/27/11 9:00:00 Neurontin 2010-05 No Kiritkumar 600 mg, 2 Memoria 2-20 A Morrison cap, l 15:00: Route: PO, [place] Drug form: CAP, TID, Start date: 04/28/11 [...] A Morrison mL, Route: l 07:00: SUB-Q, [place] Drug form: INJ, [id number], Start date: 04/28/11 1:00:00, Duration: 30 day, Stop date: 05/27/11 13:00:00 diltiazem 2010-05 No Kiritkumar 100 mL, Memoria 100 mg + 2-20 A Morrison Rate: l Sodium 06:36: titrate, [place] Chloride 00 Route: IV, 0.9% IV 100 Total mL Volume: 100, Start date: 04/28/11 0:36:00, Duration: 30 day, Stop date: 05/28/11 0:35:00 glucagon 2010-05 No Yury R 1 mg, Me moria 2-20 Anderson Route: IV, l 06:35: Drug form: [place] 00 PDR/INJ, PRN, PRN Blood Glucose Results, Start date: 04/28/11 0:35:00, Duration: 30 day, Stop date: 05/28/11 0:34:00 Dextrose 2010-05 No Yury R Route: M emoria 50% in 2-20 Anderson IVP, PRN, l Water IV 06:35: Blood [place] 00 Glucose Results, Start date: 04/28/11 0:35:00, [...] oral 0-11 Turcios tab, l tablet 15:36: [place] Route: PO, Her greenwood Drug form: TAB, [id number], Priority: NOW, Start date: 02/17/11 10:36:00, Duration: 30 day, Stop date: 03/18/11 10:36:00 Avelox 400 2010-05 Yes Annette 400 mg, 1 Me moria mg oral 0-11 [place] tab, PO, l tablet 15:31: [place] Daily, 7 Jessica nn 58 tab, Substituti on Allowed, TAB Protonix 2010-05 No Annette 40 mg, 1 Memor ia 0-11 [place] tab, l 12:30: [place] Route: PO, Jessica nn 00 Drug form: ECTAB, Before Breakfast, Start date: 02/17/11 7:30:00, Duration: 30 day, Stop date: 03/18/11 7:30:00 azithromyci 2010-05 No Annette 500 mg, 2 M emoria n 500 mg 0-11 [place] tab, l oral tablet 04:00: [place] Route: PO, Noel 00 Drug form: TAB, [...] Memoria 0-10 [place] mL, Route: l 16:43: [place] IVP, Drug Pankaj n 00 form: INJ, Q4H, PRN Elevated BP, Start date: 02/16/11 11:43:00, Duration: 30 day, Stop date: 03/18/11 11:42:00 Lopressor 2010-05 No Annette 5 mg, 5 Memor ia 0-10 [place] mL, Route: l 16:43: [place] IVP, Drug Pankaj n 00 form: INJ, Q6H, PRN Elevated BP, Start date: 02/16/11 11:43:00, Duration: 30 day, Stop date: 03/18/11 11:42:00 Visipaque 2010-05 No Annette 48,000 mg, Me moria 0-10 [place] 150 mL, l 14:05: [place] Route: IV, Jessica nn 00 Drug form: INJ, ONCE, Start date: 02/16/11 9:05:00, Stop date: 02/16/11 9:05:00 potassium 2010-05 No Annette 10 mEq, 1 Mem oria chloride 0-10 [place] tab, l 14:00: [place] Route: PO, Jessica nn 00 Drug form: ERTAB, Daily, Start date: 02/16/11 9:00:00, Duration: 30 day, Stop date: 03/17/11 9:00:00 glyBURIDE 2010-05 No Annette 5 mg, 1 Memor ia 0-10 [place] tab, l 14:00: [place] Route: PO, Jessica nn 00 Drug form: TAB, Daily, Start date: 02/16/11 9:00:00, Duration: 30 day, Stop date: 03/17/11 9:00:00 Lasix 40 mg 2010-05 No Annette 40 mg, 2 Me moria oral tablet 0-10 [place] tab, l 14:00: [place] Route: PO, Jessica nn 00 Drug form: TAB, Daily, Start date: 02/16/11 9:00:00, Duration: 30 day, Stop date: 03/17/11 9:00:00 morphine 2010-05 No Crystal 2 mg, 0.4 M emoria Sulfate 0-10 Kristen mL, Route: l 04:21: Elvia IVP, Drug [place] 00 form: INJ, Q3H, PRN Pain, Start date: 02/15/11 23:21:00, Duration: 30 day, Stop date: 03/17/11 23:20:00 predniSONE 2010-05 No Annette 50 mg, Memor ia 0-09 [place] Route: PO, l 22:00: [place] Drug form: Jessica nn 00 TAB, BID, Start date: 02/15/11 17:00:00, Duration: 30 day, Stop date: 03/17/11 9:00:00 gabapentin 2010-05 No Annette 600 mg, 2 Me moria 600 mg oral 0-09 [place] cap, l tablet 18:00: [place] Route: PO, Her greenwood 00 Drug form: CAP, TID, Start date: 02/15/11 13:00:00, Duration: 30 day, Stop date: 03/17/11 9:00:00 aspirin 81 2010-05 Yes 1 tab, PO, M emoria mg tablet, 0-09 Daily, 0 l enteric 16:58: tabNoel coated 50 Substituti on Allowed, ECTAB glyBURIDE 5 2010-05 Yes Annette 1 tab, PO, Memoria mg oral 0-09 [place] Daily, 30 l tablet 16:58: [place] tabNoel 30 Substituti on Allowed, TAB doxycycline 2010-05 No 1 cap, PO, Memoria hyclate 100 0-09 BID, cap, l mg oral 16:58: Substituti Herm pinky capsule 11 on Allowed predniSONE 2010-05 Yes Annette 1 tab, PO, M emoria 50 mg oral 0-09 [place] BID, tab, l tablet 16:57: [place] Substituti Her greenwood 48 on Allowed, TAB gabapentin 2010-05 Yes Annette 1 tab, PO, M emoria 600 mg oral 0-09 [place] TID, 270 l tablet 16:57: [place] tabNoel 13 Substituti on Allowed Klor-Con 2010-05 Yes Annette 1 tab, PO, Mem oria M10 oral 0-09 [place] Daily, l tablet, 16:56: [place] tabNoel extended 57 Substituti release on Allowed, ERTAB lisinopril 2010-05 Yes 1 tab, PO, M emoria 10 mg oral 0-09 BID, 30 l tablet 16:56: tabNoel 17 Substituti on Allowed, TAB Lasix 40 mg 2010-05 Yes Annette 1 tab, PO, Memoria oral tablet 0-09 [place] Daily, 30 l 16:56: [place] tabNoel 00 Substituti on Allowed, TAB Coreg 12.5 2010-05 Yes 1 tab, PO, M emoria mg oral 0-09 BID, 60 l tablet 16:55: tabNoel 44 Substituti on Allowed, TAB Zofran ODT 2010-05 Yes 4 mg, 1 Kaz david 4 mg oral 0-09 tab, PO, l tablet, 16:55: Q8H, PRN, Jessica nn disintegrat 22 as needed ing for nausea/vom iting, Substituti on Allowed, TAB Xanax 0.5 2010-05 Yes 1 tab, PO, Me moria mg oral 0-09 Daily, l tablet 16:54: PRN, 30 [place] 59 tab, Anxiety, Substituti on Allowed cefepime 2010-05 No Annette 1 gm, Memoria 0 [place] Route: l 16:00: [place] PRITCHARDPB, [place] 00 [id number], Start date: 02/15/11 11:00:00, Duration: 30 day, Stop date: 03/16/11 23:00:00 pantoprazol 2010-05 No Crystal 40 mg, M emoria e 0 Kristen Route: l 14:00: Elvia IVP, Drug Noel 00 form: INJ, Daily, Start date: 02/15/11 9:00:00, Duration: 30 day, Stop date: 03/16/11 9:00:00 Saline 2010-05 No Crystal 5 ml, Memoria Flush 0.9% 0 Kristen Route: l 14:00: Elvia IVP, Drug Form: INJ, Q12H, Start date: 02/15/11 9:00:00, Duration: 30 day, Stop date: 03/16/11 21:00:00 aspirin 81 2010-05 No Crystal 81 mg, 1 Memoria mg tablet, 0- Kristen tab, l enteric 14:00: Elvia Route: PO, Her greenwood coated Drug form: ECTAB, Daily, Start date: 02/15/11 9:00:00, Duration: 30 day, Stop date: 03/16/11 9:00:00 Lovenox 2010-05 No Crystal 40 mg, 0.4 M emoria 0-09 Kristen mL, Route: l 14:00: Elvia ANGEL-Q, Noel Drug form: INJ, Daily, Start date: 02/15/11 9:00:00, Duration: 30 day, Stop date: 03/16/11 9:00:00 predniSONE 2010-05 No Arnaldo R 40 mg, 2 Memoria 0-09 Morrison tab, l 14:00: Route: PO, Noel Drug form: TAB, Daily, Start date: 02/15/11 9:00:00, Stop date: 03/16/11 9:00:00 lisinopril 2010-05 No Crystal 10 mg, 2 Memoria 0-09 Kristen tab, l 14:00: Elvia Route: PO, Pankaj n 00 Drug form: TAB, BID, Start date: 02/15/11 9:00:00, Duration: 30 day, Stop date: 03/16/11 17:00:00 DuoNeb 2010-05 No Crystal 3 ml, Memoria inhalation 0 Kristen Route: l solution 05:00: Elvia INHALATION He rmann 00 , Drug Form: SOLN, Q6H, Start date: 02/15/11 0:00:00, Duration: 30 day, Stop date: 03/16/11 18:00:00 Neurontin 2010-05 No Annette 600 mg, 2 Mem oria 0-09 [place] cap, l 04:40: [place] Route: PO, Jessica nn 00 Drug form: CAP, Q8H, Start date: 02/14/11 23:40:00, Duration: 30 day, Stop date: 03/16/11 16:00:00 ceftriaxone 2010-05 No Arnaldo R 1 gm, M emoria 0 Morrison Route: l 04:00: MACHOPB, Noel 00 [id number], Start date: 02/14/11 23:00:00, Duration: 30 day, Stop date: 03/15/11 23:00:00 azithromyci 2010-05 No Crystal 500 mg, Memoria n 0- Kristen Route: l 04:00: Elvia IVPB, [place] 00 [id number], Start date: 02/14/11 23:00:00, Duration: 30 day, [...] mL, Route: l 03:12: Elvia PO, Drug [place] 00 form: LIQ, Q4H, PRN Cough, Start date: 02/14/11 22:12:00, Duration: 30 day, Stop date: 03/16/11 22:11:00 Insulin 2010-05 No Crystal 10 unit, Mem oria (Novolog) 0-09 Kristen 0.1 mL, l Sliding 03:08: Elvia Route: [place] Scale - Low 00 SUB-Q, Drug form: [...] ml, Route: l 03:08: Elvia IVP, Drug [place] 00 Form: INJ, PRN, PRN Blood Glucose [...] tablet 03:04: Elvia Route: PO, Herm pinky 00 Drug form: TAB, Bedtime, Priority: NOW, Start [...] Kristen Route: l 02:35: Elvia IVP, Drug Noel 00 Form: INJ, PRN, [...] 0-09 Forbes tab, l 01:28: Route: PO, [place] 00 Drug form: TAB, ONCE, Priority: STAT, Start date: 02/14/11 20:28:00, Stop date: 02/14/11 20:28:00 ondansetron 2010-05 No Abdon G 4 mg, 2 Memoria 0-09 Forbes mL, Route: l 00:31: IVP, Drug [place] 00 form: INJ, ONCE, Priority: STAT, Start date: 02/14/11 19:31:00, Stop date: 02/14/11 19:31:00 morphine 2010- No Abdon G 4 mg, 1 Mem oria Sulfate 0-09 Forbes mL, Route: l 00:30: IVP, Drug [place] 00 form: INJ, ONCE, Priority: STAT, Start [...] Source Respitory Rate 2018-12-01 20:24:00 Memori al [place] Systolic (mm Hg) 2018-12-01 20:24:00 Kaz rial [place] Diastolic (mm Hg) 2018-12-01 20:24:00 Mem orial [place] Temperature Oral (F) 2018-12-01 20:24:00 98.5 F [facility] [place] Heart Rate 2018-12-01 20:24:00 [facility] [place] Systolic (mm Hg) 2018-12-01 16:14:00 Kaz rial [place] Diastolic (mm Hg) 2018-12-01 16:14:00 Mem orial [place] Heart Rate 2018-12-01 16:14:00 [facility] Noel Respitory Rate 2018-12-01 16:14:00 Memori al Noel Temperature Oral (F) 2018-12-01 16:14:00 98.1 F [facility] [place] Systolic (mm Hg) 2018-12-01 13:27:00 Kaz rial [place] Diastolic (mm Hg) 2018-12-01 13:27:00 Mem orial [place] Respitory Rate 2018-12-01 12:23:00 Memori al [place] Heart Rate 2018-12-01 12:23:00 [facility] Noel Height 2018-12-01 09:32:00 193.04 cm [facility] [place] BMI Calculated 2018-11-30 04:11:00 Memori al Noel Weight 2018-11-30 04:11:00 [facility] Noel Height 2018-11-30 04:11:00 193.04 cm [facility] Noel Systolic (mm Hg) 2018-03-29 17:39:00 Kaz rial [place] Diastolic (mm Hg) 2018-03-29 17:39:00 Mem orial [place] Respitory Rate 2018-03-29 17:39:00 Memori al [place] Heart Rate 2018-03-29 17:39:00 [facility] Noel Temperature Oral (F) 2018-03-29 17:39:00 97.5 F [facility] Heart Rate 2018-03-29 13:52:00 [facility] Noel Respitory Rate 2018-03-29 13:52:00 Memori al Noel Systolic (mm Hg) 2018-03-29 13:52:00 Kaz rial Noel Diastolic (mm Hg) 2018-03-29 13:52:00 Mem orial [place] Temperature Oral (F) 2018-03-29 13:52:00 98.4 F [facility] [place] Weight 2018-03-29 12:08:00 [facility] Noel Systolic (mm Hg) 2018-03-29 09:30:00 Kaz rial [place] Diastolic (mm Hg) 2018-03-29 09:30:00 Mem orial [place] Heart Rate 2018-03-29 09:30:00 [facility] [place] Temperature Oral (F) 2018-03-29 09:30:00 98.3 F [facility] [place] Respitory Rate 2018-03-29 06:00:00 Memori al [place] BMI Calculated 2018-03-25 21:42:00 Memori al Noel Weight 2018-03-25 21:42:00 [facility] Noel Height 2018-03-25 21:42:00 193.04 cm [facility] [place] Temperature Oral (F) 2017-04-11 13:01:00 97.9 F [facility] Noel Systolic (mm Hg) 2017-04-11 13:01:00 Kaz rial Noel Diastolic (mm Hg) 2017-04-11 13:01:00 Mem orial [place] Respitory Rate 2017-04-11 13:01:00 Memori al Noel Heart Rate 2017-04-11 13:01:00 [facility] Noel Temperature Oral (F) 2017-04-11 10:00:00 98.2 F [facility] [place] Heart Rate 2017-04-11 10:00:00 [facility] [place] Systolic (mm Hg) 2017-04-11 10:00:00 Kaz rial Noel Diastolic (mm Hg) 2017-04-11 10:00:00 Mem orial [place] Respitory Rate 2017-04-11 10:00:00 Memori al [place] Systolic (mm Hg) 2017-04-11 06:00:00 Kaz rial Noel Diastolic (mm Hg) 2017-04-11 06:00:00 Mem orial Noel Heart Rate 2017-04-11 06:00:00 [facility] [place] Respitory Rate 2017-04-11 06:00:00 Memori al Noel Temperature Oral (F) 2017-04-11 06:00:00 98.2 F [facility] [place] Height 2017-04-08 21:30:00 193.04 cm [facility] Weight 2017-04-08 21:30:00 [facility] [place] BMI Calculated 2017-04-08 21:30:00 Memori al [place] Temperature Oral (F) 2017-03-23 22:16:00 98.4 F [facility] [place] Heart Rate 2017-03-23 22:16:00 [facility] Noel Respitory Rate 2017-03-23 22:16:00 Memori al [place] Systolic (mm Hg) 2017-03-23 22:16:00 Kaz rial [place] Diastolic (mm Hg) 2017-03-23 22:16:00 Mem orial Noel Systolic (mm Hg) 2017-03-23 17:38:00 Kaz rial [place] Diastolic (mm Hg) 2017-03-23 17:38:00 Mem orial Noel Temperature Oral (F) 2017-03-23 17:38:00 98.2 F [facility] [place] Heart Rate 2017-03-23 17:38:00 [facility] [place] Respitory Rate 2017-03-23 17:38:00 Memori al [place] Heart Rate 2017-03-23 13:43:00 [facility] Noel Systolic (mm Hg) 2017-03-23 13:43:00 Kaz rial Noel Diastolic (mm Hg) 2017-03-23 13:43:00 Mem orial Noel Respitory Rate 2017-03-23 13:43:00 Memori al [place] Temperature Oral (F) 2017-03-23 13:43:00 98.4 F [facility] BMI Calculated 2017-03-16 22:19:00 [facility] al Noel Weight 2017-03-16 22:19:00 [facility] [place] Height 2017-03-16 22:19:00 193.04 cm [facility] Weight 2017-03-16 18:16:00 [facility] BMI Calculated 2017-03-16 18:16:00 Memori al Noel Height 2017-03-16 18:16:00 193.04 cm [facility] [place] Temperature Oral (F) 2016-03-11 18:06:00 97.9 F [facility] [place] Systolic (mm Hg) 2016-03-11 18:06:00 Kaz rial Noel Diastolic (mm Hg) 2016-03-11 18:06:00 Mem orial Noel Heart Rate 2016-03-11 18:06:00 [facility] Respitory Rate 2016-03-11 18:06:00 Memori al [place] Systolic (mm Hg) 2016-03-11 12:58:00 Kaz rial Noel Diastolic (mm Hg) 2016-03-11 12:58:00 Mem orial [place] Respitory Rate 2016-03-11 12:58:00 Memori al Noel Temperature Oral (F) 2016-03-11 12:58:00 98.1 F [facility] [place] Heart Rate 2016-03-11 12:58:00 [facility] Heart Rate 2016-03-11 09:18:00 [facility] [place] Temperature Oral (F) 2016-03-11 09:18:00 97.8 F [facility] [place] Respitory Rate 2016-03-11 09:18:00 Memori al Noel Systolic (mm Hg) 2016-03-11 09:18:00 Kaz rial Noel Diastolic (mm Hg) 2016-03-11 09:18:00 Mem orial Noel BMI Calculated 2016-03-09 19:03:00 [facility] al [place] Weight 2016-03-09 19:03:00 [facility] [place] Height 2016-03-09 19:03:00 193.04 cm [facility] [place] Respitory Rate 2016-01-18 13:00:00 [facility] al [place] Heart Rate 2016-01-18 13:00:00 [facility] [place] Temperature Oral (F) 2016-01-18 13:00:00 98.7 F [facility] Noel Systolic (mm Hg) 2016-01-18 09:06:00 Kaz rial [place] Diastolic (mm Hg) 2016-01-18 09:06:00 Mem orial [place] Temperature Oral (F) 2016-01-18 09:06:00 98.2 F [facility] [place] Heart Rate 2016-01-18 09:06:00 [facility] [place] Respitory Rate 2016-01-18 09:06:00 Memori al [place] Systolic (mm Hg) 2016-01-18 03:54:00 Kaz rial [place] Diastolic (mm Hg) 2016-01-18 03:54:00 Mem orial [place] Temperature Oral (F) 2016-01-18 03:54:00 98.1 F [facility] Heart Rate 2016-01-18 03:54:00 [facility] [place] Respitory Rate 2016-01-18 03:54:00 [facility] Weight 2016-01-18 01:05:00 [facility] BMI Calculated 2016-01-18 01:05:00 [facility] Height 2016-01-18 01:05:00 193.04 cm [facility] Diastolic (mm Hg) 2016-01-18 00:55:00 [facility] Systolic (mm Hg) 2016-01-18 00:55:00 [facility] Weight 2016-01-17 21:23:00 [facility] Heart Rate 2015-05-28 23:23:00 [facility] Temperature Oral (F) 2015-05-28 23:23:00 97.9 F [facility] Respitory Rate 2015-05-28 23:23:00 [facility] Systolic (mm Hg) 2015-05-28 23:23:00 [facility] Diastolic (mm Hg) 2015-05-28 23:23:00 [facility] Weight 2015-05-28 21:05:00 [facility] Temperature Oral (F) 2015-05-28 21:05:00 97.8 F [facility] Respitory Rate 2015-05-28 21:05:00 [facility] Rate 2015-05-28 21:05:00 [facility] Systolic (mm Hg) 2015-05-28 21:05:00 [facility] [place] Diastolic (mm Hg) 2015-05-28 21:05:00 [facility] [place] Systolic (mm Hg) 2015-04-24 17:04:00 [facility] Diastolic (mm Hg) 2015-04-24 17:04:00 [facility] Respitory Rate 2015-04-24 17:04:00 [facility] Temperature Oral (F) 2015-04-24 17:04:00 97.7 F [facility] Heart Rate 2015-04-24 17:04:00 [facility] Systolic (mm Hg) 2015-04-24 14:20:00 [facility] [place] Diastolic (mm Hg) 2015-04-24 14:20:00 [facility] Respitory Rate 2015-04-24 14:20:00 [facility] Temperature Oral (F) 2015-04-24 14:20:00 97.2 F [facility] Heart Rate 2015-04-24 14:20:00 [facility] Systolic (mm Hg) 2015-04-24 12:24:00 [facility] Diastolic (mm Hg) 2015-04-24 12:24:00 [facility] Respitory Rate 2015-04-24 12:24:00 [facility] Rate 2015-04-24 12:24:00 [facility] Temperature Oral (F) 2015-04-24 00:30:00 97.7 F [facility] Weight 2015-04-21 07:11:00 [facility] Height 2015-04-21 07:11:00 187.96 cm [facility] BMI Calculated 2015-04-21 07:11:00 [facility] Temperature Oral (F) 2015-02-03 00:13:00 98 F [facility] Heart Rate 2015-02-03 00:13:00 [facility] Systolic (mm Hg) 2015-02-03 00:13:00 [facility] Diastolic (mm Hg) 2015-02-03 00:13:00 [facility] [place] Respitory Rate 2015-02-03 00:13:00 [facility] Height 2015-02-02 20:33:00 172.72 cm [facility] Weight 2015-02-02 20:33:00 [facility] BMI Calculated 2015-02-02 20:33:00 [facility] Respitory Rate 2015-02-02 20:33:00 [facility] [place] Temperature Oral (F) 2015-02-02 20:33:00 98.2 F [facility] Heart Rate 2015-02-02 20:33:00 [facility] Systolic (mm Hg) 2015-02-02 20:33:00 [facility] [place] Diastolic (mm Hg) 2015-02-02 20:33:00 [facility] Heart Rate 2014-07-07 04:20:00 [facility] Respitory Rate 2014-07-07 04:20:00 [facility] Temperature Oral (F) 2014-07-07 04:20:00 98.3 F [facility] Heart Rate 2014-07-07 03:38:00 [facility] Respitory Rate 2014-07-07 03:38:00 [facility] Systolic (mm Hg) 2014-07-07 03:38:00 [facility] [place] Diastolic (mm Hg) 2014-07-07 03:38:00 [facility] Systolic (mm Hg) 2014-07-07 02:16:00 [facility] [place] Diastolic (mm Hg) 2014-07-07 02:16:00 [facility] [place] Respitory Rate 2014-07-07 02:16:00 [facility] Heart Rate 2014-07-07 02:16:00 [facility] Systolic (mm Hg) 2014-07-07 00:30:00 [facility] [place] Diastolic (mm Hg) 2014-07-07 00:30:00 [facility] Temperature Oral (F) 2014-07-07 00:30:00 98.1 F [facility] Height 2014-07-07 00:30:00 193.04 cm [facility] BMI Calculated 2014-07-07 00:30:00 [facility] Weight 2014-07-07 00:30:00 [facility] Diastolic (mm Hg) 2014-04-02 17:45:00 [facility] Systolic (mm Hg) 2014-04-02 17:45:00 [facility] Respitory Rate 2014-04-02 17:45:00 [facility] Diastolic (mm Hg) 2014-04-02 17:30:00 [facility] Respitory Rate 2014-04-02 17:30:00 [facility] [place] Systolic (mm Hg) 2014-04-02 17:30:00 [facility] Diastolic (mm Hg) 2014-04-02 17:15:00 [facility] Systolic (mm Hg) 2014-04-02 17:15:00 [facility] Respitory Rate 2014-04-02 17:15:00 [facility] Temperature Oral (F) 2014-04-02 15:15:00 97.9 F [facility] Temperature Oral (F) 2014-04-02 13:00:00 97.7 F [facility] Height 2014-03-30 16:58:00 193.04 cm [facility] BMI Calculated 2014-03-30 16:58:00 [facility] Weight 2014-03-30 16:58:00 [facility] Temperature Oral (F) 2014-03-30 16:58:00 98.2 F [facility] Heart Rate 2014-03-30 16:58:00 [facility] Respitory Rate 2014-03-06 00:15:00 [facility] Heart Rate 2014-03-06 00:15:00 [facility] Temperature Oral (F) 2014-03-06 00:15:00 98.1 F [facility] Systolic (mm Hg) 2014-03-06 00:15:00 [facility] Diastolic (mm Hg) 2014-03-06 00:15:00 [facility] Systolic (mm Hg) 2014-03-05 20:12:00 [facility] [place] Temperature Oral (F) 2014-03-05 20:12:00 98.1 F [facility] Heart Rate 2014-03-05 20:12:00 [facility] Respitory Rate 2014-03-05 20:12:00 [facility] Diastolic (mm Hg) 2014-03-05 20:12:00 [facility] Respitory Rate 2014-03-05 16:21:00 [facility] [place] Diastolic (mm Hg) 2014-03-05 16:21:00 [facility] Systolic (mm Hg) 2014-03-05 16:21:00 [facility] [place] Heart Rate 2014-03-05 16:21:00 [facility] Temperature Oral (F) 2014-03-05 16:21:00 98.1 F [facility] Weight 2014-02-27 10:20:00 [facility] Weight 2014-02-26 07:14:00 [facility] BMI Calculated 2014-02-26 07:14:00 [facility] [place] Height 2014-02-26 07:14:00 193.04 cm [facility] Height 2014-02-25 23:21:00 193.04 cm [facility] Weight 2014-02-25 23:21:00 [facility] BMI Calculated 2014-02-25 23:21:00 [facility] [place] Temperature Oral (F) 2014-01-28 17:04:00 99 F [facility] Heart Rate 2014-01-28 17:04:00 [facility] Respitory Rate 2014-01-28 17:04:00 [facility] Diastolic (mm Hg) 2014-01-28 17:04:00 [facility] Systolic (mm Hg) 2014-01-28 17:04:00 [facility] Temperature Oral (F) 2014-01-28 13:02:00 98.8 F [facility] Heart Rate 2014-01-28 13:02:00 [facility] Respitory Rate 2014-01-28 13:02:00 [facility] Systolic (mm Hg) 2014-01-28 13:02:00 [facility] Diastolic (mm Hg) 2014-01-28 13:02:00 [facility] Weight 2014-01-28 10:00:00 [facility] Systolic (mm Hg) 2014-01-28 09:00:00 [facility] [place] Diastolic (mm Hg) 2014-01-28 09:00:00 [facility] [place] Temperature Oral (F) 2014-01-28 09:00:00 98.5 F [facility] Heart Rate 2014-01-28 09:00:00 [facility] Respitory Rate 2014-01-28 09:00:00 [facility] BMI Calculated 2014-01-26 09:56:00 [facility] [place] Height 2014-01-26 09:56:00 193.04 cm [facility] Weight 2014-01-26 09:56:00 [facility] Height 2012-07-20 20:49:00 193.04 cm [facility] Weight 2012-07-20 20:49:00 [facility] Systolic (mm Hg) 2012-02-28 02:30:00 [facility] [place] Heart Rate 2012-02-28 02:30:00 [facility] Respitory Rate 2012-02-28 02:30:00 [facility] Diastolic (mm Hg) 2012-02-28 02:30:00 [facility] Temperature Oral (F) 2012-02-28 02:30:00 98.7 F [facility] Diastolic (mm Hg) 2012-02-27 21:00:00 [facility] [place] Respitory Rate 2012-02-27 21:00:00 [facility] [place] Systolic (mm Hg) 2012-02-27 21:00:00 [facility] Temperature Oral (F) 2012-02-27 21:00:00 98.3 F [facility] Heart Rate 2012-02-27 21:00:00 [facility] Diastolic (mm Hg) 2012-02-27 17:00:00 [facility] [place] Systolic (mm Hg) 2012-02-27 17:00:00 [facility] Respitory Rate 2012-02-27 17:00:00 [facility] [place] Temperature Oral (F) 2012-02-27 17:00:00 97.5 F [facility] Heart Rate 2012-02-27 17:00:00 [facility] Height 2012-02-26 05:58:00 193.04 cm [facility] Weight 2012-02-26 05:58:00 [facility] Weight 2012-02-26 05:13:00 [facility] Height 2012-02-26 05:13:00 193.04 cm [facility] Respitory Rate 2011-12-08 16:20:00 [facility] [place] Diastolic (mm Hg) 2011-12-08 16:20:00 [facility] Systolic (mm Hg) 2011-12-08 16:20:00 [facility] [place] Temperature Oral (F) 2011-12-08 16:20:00 98.9 F [facility] Heart Rate 2011-12-08 16:20:00 [facility] Temperature Oral (F) 2011-12-08 13:00:00 99.2 F [facility] Heart Rate 2011-12-08 13:00:00 [facility] Systolic (mm Hg) 2011-12-08 13:00:00 [facility] Respitory Rate 2011-12-08 13:00:00 [facility] [place] Diastolic (mm Hg) 2011-12-08 13:00:00 [facility] [place] Diastolic (mm Hg) 2011-12-08 10:13:00 [facility] [place] Systolic (mm Hg) 2011-12-08 10:13:00 [facility] Respitory Rate 2011-12-08 10:13:00 [facility] [place] Heart Rate 2011-12-08 10:13:00 [facility] Temperature Oral (F) 2011-12-08 10:13:00 97.9 F [facility] Height 2011-12-03 19:23:00 193.04 cm [facility] Weight 2011-12-03 19:23:00 [facility] Weight 2011-12-01 22:46:00 [facility] Height 2011-12-01 22:46:00 193.04 cm [facility] Weight 2011-12-01 22:06:00 [facility] Height 2011-12-01 22:06:00 193.04 cm [facility] Respitory Rate 2011-08-28 12:00:00 [facility] Heart Rate 2011-08-28 12:00:00 [facility] Diastolic (mm Hg) 2011-08-28 12:00:00 [facility] Systolic (mm Hg) 2011-08-28 12:00:00 [facility] Temperature Oral (F) 2011-08-28 12:00:00 97.7 F [facility] Diastolic (mm Hg) 2011-08-28 04:00:00 [facility] Systolic (mm Hg) 2011-08-28 04:00:00 [facility] [place] Heart Rate 2011-08-28 04:00:00 [facility] Respitory Rate 2011-08-28 04:00:00 [facility] [place] Temperature Oral (F) 2011-08-28 04:00:00 97.9 F [facility] Diastolic (mm Hg) 2011-08-27 20:52:00 [facility] Systolic (mm Hg) 2011-08-27 20:52:00 [facility] Respitory Rate 2011-08-27 20:52:00 [facility] Heart Rate 2011-08-27 20:52:00 [facility] Temperature Oral (F) 2011-08-27 20:52:00 98.1 F [facility] Weight 2011-08-26 21:30:00 [facility] Height 2011-08-26 21:30:00 193.04 cm [facility] Respitory Rate 2011-07-07 14:00:00 [facility] Diastolic (mm Hg) 2011-07-07 14:00:00 [facility] [place] Heart Rate 2011-07-07 14:00:00 [facility] Systolic (mm Hg) 2011-07-07 14:00:00 [facility] [place] Temperature Oral (F) 2011-07-07 14:00:00 98.4 F [facility] Diastolic (mm Hg) 2011-07-07 10:00:00 [facility] Systolic (mm Hg) 2011-07-07 10:00:00 [facility] [place] Respitory Rate 2011-07-07 10:00:00 [facility] [place] Temperature Oral (F) 2011-07-07 10:00:00 97.3 F [facility] Heart Rate 2011-07-07 10:00:00 [facility] Temperature Oral (F) 2011-07-07 06:00:00 97.8 F [facility] Weight 2011-07-06 09:52:00 [facility] Weight 2011-07-06 08:45:00 [facility] Height 2011-07-06 08:45:00 193.04 cm [facility] Systolic (mm Hg) 2011-05-05 18:00:00 [facility] Respitory Rate 2011-05-05 18:00:00 [facility] Diastolic (mm Hg) 2011-05-05 18:00:00 [facility] Heart Rate 2011-05-05 18:00:00 [facility] Temperature Oral (F) 2011-05-05 18:00:00 98.6 F [facility] Heart Rate 2011-05-05 14:00:00 [facility] Diastolic (mm Hg) 2011-05-05 14:00:00 [facility] [place] Systolic (mm Hg) 2011-05-05 14:00:00 [facility] [place] Respitory Rate 2011-05-05 14:00:00 [facility] [place] Temperature Oral (F) 2011-05-05 14:00:00 98.0 F [facility] Temperature Oral (F) 2011-05-05 10:00:00 98.6 F [facility] Systolic (mm Hg) 2011-05-05 10:00:00 [facility] [place] Diastolic (mm Hg) 2011-05-05 10:00:00 [facility] Respitory Rate 2011-05-05 10:00:00 [facility] [place] Heart Rate 2011-05-05 10:00:00 [facility] Weight 2011-05-02 11:34:00 [facility] Weight 2011-04-28 06:28:00 [facility] Height 2011-04-28 06:28:00 193.04 cm [facility] Respitory Rate 2011-02-17 19:45:00 [facility] Heart Rate 2011-02-17 19:45:00 [facility] Temperature Oral (F) 2011-02-17 19:45:00 97.8 F [facility] Systolic (mm Hg) 2011-02-17 19:45:00 [facility] [place] Diastolic (mm Hg) 2011-02-17 19:45:00 [facility] Diastolic (mm Hg) 2011-02-17 15:30:00 [facility] [place] Temperature Oral (F) 2011-02-17 15:30:00 97.7 F [facility] Systolic (mm Hg) 2011-02-17 15:30:00 [facility] Respitory Rate 2011-02-17 15:30:00 [facility] [place] Heart Rate 2011-02-17 15:30:00 [facility] Diastolic (mm Hg) 2011-02-17 12:13:00 [facility] [place] Respitory Rate 2011-02-17 12:13:00 [facility] Systolic (mm Hg) 2011-02-17 12:13:00 [facility] Temperature Oral (F) 2011-02-17 12:13:00 98.5 F [facility] Heart Rate 2011-02-17 12:13:00 [facility] Weight 2011-02-15 02:25:00 [facility] Height 2011-02-15 02:25:00 193.04 cm [facility] Weight 2011-02-14 23:10:00 [facility] Height 2011-02-14 23:10:00 193.04 cm [facility] Procedures Procedure Date / Time Performed Performing Clinician Sourc e Fluoroscopic angiography Waleska Cohen of coronary artery and insertion of stent Fusion of lumbar spine [facility] IVC - Insertion of [facility] pinky inferior vena caval filter Pacemaker [facility] care<sup>1</sup> Percutaneous transluminal Andrews Harrell balloon angioplasty of aorta with stent placement for coarctation of aorta [facility]<sup>[facility]</sup> IVC - Insertion of [facility] pinky inferior vena caval filter Procedure on back [facility] nn <sup>1</sup> Plan of Care Planned Activity Planned Date Details Comments Source Future Scheduled 2019-12-09 INFLUENZA VACCINE [place] [facility] 00:00:00 [code = INFLUENZA VACCINE] Future Scheduled 2000 65+ PNEUMOCOCCAL [facility] [facility] 00:00:00 VACCINE (1 of 1 - PPSV23) [code = 65+ PNEUMOCOCCAL VACCINE (1 of 1 - PPSV23)] Future Scheduled 1985 SHINGLES VACCINES (#1) [place] [facility] 00:00:00 [code = SHINGLES VACCINES (#1)] Future Scheduled 1951 COVID-19 VACCINE (1 of [facility] [place] [facility] 00:00:00 2) [code = COVID-19 VACCINE (1 of 2)] Encounters Start End Encounter Admission Attending Care Care Encounter Source Date/Time Date/Time Type Type Clinicians Facility Department ID 2018-11-29 Inpatient [facility] [id number] [facility] W 22:21:00 2018-11-29 2018-12-01 Outpatient Maryann [facility] [id number] 22:21:00 17:00:00 Cecy Grant 2018-04-19 2018-04-19 Outpatient [facility], 29 29 [id number] 08:00:00 08:00:00 Arnaldo Clement Ginger 2018-03-25 2018-03-29 Outpatient Morrison, [facility] [id number] 15:02:00 16:28:00 Kavita 20 A 2017-04-10 2017-04-11 Outpatient [facility] [id number] 14:03:00 15:23:00 Kavita 34 A 2017-03-16 2017-03-23 Outpatient [facility] [id number] 12:02:00 18:17:00 Kavita 18 A 2016-03-09 2016-03-11 Outpatient Prince, [facility] [id number] 12:18:00 16:44:00 Trevoritminor 05 A 2016-01-17 2016-01-18 Outpatient Alexus, [facility] [id number] 16:15:00 12:05:00 Alverto 17 2015-05-28 2015-05-28 [facility] [id number] 14:59:00 17:26:00 Abel 15 2015-04-21 2015-04-24 Outpatient Justin, [facility] [id number] 00:14:00 17:10:00 Mike Patel 46 2015-02-02 2015-02-02 Outpatient Jess, [facility] [id number] 15:30:00 19:16:00 Pop Soto 14 2014-07-06 2014-07-06 Outpatient Andrei, [facility] [id number] 18:18:00 22:22:00 Abdon Mas 13 2014-04-02 2014-04-02 Outpatient Kriss, [facility] [id number] 06:14:00 11:55:00 Terry 12 Chaitanya 2014-02-25 2014-03-05 Outpatient Bari Cox [facility] [id number] 18:17:00 20:10:00 Lesly 11 2014-01-26 2014-01-28 Outpatient Bari Cox [facility] [id number] 06:24:00 17:14:00 Lesly 62 Results Test Description [...] code = MCH) 30.5 pg 27.0-31.0 [facility] DrpbxiwYZHACJOVEO5551-22-68 10:20:004.2[facility]annHEMATOLOGY 2018-12-01 10:20:0010.8[facility] KmbeilsFBOOSVBKJH9803-92-60 10:20:0016.8[facility] VfoiyflXKXZZMKDZA3785-16-62 10:20:0077[facility] TweuonnKGOURDNNKF5082-74-04 10:20:008.3[facility] KyfiyfmRAIOFPXSTH7910-33-49 10:20:0032.3[facility] CARDIAC HGWVAGO3824-51-63 10:43:000.18[facility]annCARDIAC LYDQDEM3569-73-94 07:05:000.21[facility]annCARDIAC KKYKZQJ6056-75-72 07:05:94839Peuksatf HermannCHEM TPUEZ5875-24-53 07:05:002.5[facility] HermannCHEM EDVFS5621-63-79 07:05:002.0[facility] HermannCHEM OZZHU4571-14-30 07:05:0035[facility]annCHEM DHPIZ4738-57-51 07:05:0068[facility]annCHEM YZSPV6470-90-84 07:05:000.6 [facility]annCHEM PEGGY9147-42-55 07:05:0013[facility]annCHEM PANEL 2018-11-30 07:05:003.9[facility]annCHEM HWKAC3669-10-91 07:05:0027[facility] HermannCHEM IYSZA2078-87-02 07:05:008.2[facility]annCHEM KZPII7589-10-09 07:05:64598Vtudrzqi HermannCHEM BATFP2604-18-76 07:05:007.8[facility] HermannCHEM BACYZ5030-61-81 07:05:26903Mquubrte HermannCHEM YSFWO0550-77-71 07:05:002.00 [facility]annCHEM UJVJE3693-34-85 07:05:003.1[facility]annCHEM PANEL 2018-11-30 07:05:20174Rpfgqaei HermannCHEM CQAPI2897-83-16 07:05:0030[facility]annCHEM GTNRV3271-46-71 07:05:0014[facility] HermannCHEM KHVEJ2487-83-03 07:05:00 Test Item Value Reference Range Interpretation Comments A/G Ratio (test code = A/G Ratio) 0.7 1 0.7-1.6 [facility]annCHEM GSCDH7143-62-45 07:05:004.7[facility]annCHEM PANEL 2018-11-30 07:05:009.9[facility]annCHEM OIUZN6977-86-71 07:05:00 Test Item Value Reference Range Interpretation Comments B/C Ratio (test code = B/C Ratio) 15 1 6-25 [facility] GmtufmwUJSCLUWVIJ7079-08-94 07:05:0032.1[facility]annHEMATOLOGY 2018-11-30 07:05:0017.8[facility] MzxvfvzXGAHUKWSXP0520-67-46 07:05:00 Test Item Value Reference Range Interpretation Comments MCH (test code = MCH) 30.7 pg 27.0-31.0 [facility] ZzxsonnMQGPKVOVYU0423-63-65 07:05:003.46[facility]annHEMATOLOGY 2018-11-30 07:05:004.9[facility] ZyvhuzhAIZGVBMITP1613-64-57 07:05:008.2[facility] DqwbkxlLDZQJZOWSH3452-68-18 07:05:0091[facility] ApqukfvMUEAWQOLXX4096-02-19 07:05:0095.7[facility] CedyhueVZVUARXXPW8557-69-65 07:05:0010.6[facility] OIXIXIADBG9445-42-42 07:05:0033.1[facility] CbchsnqHMAVFXQDCG9152-08-94 07:05:00 3.0[facility] JinujmjSQDXNZJOWE7775-96-31 07:05:001.5[facility]annHEMATOLOGY 2018-11-30 07:05:000.2[facility] BrvalusLIQUNZSEGL6315-40-48 07:05:000.2[facility] ZqjjlyvNEKBLXAWIX7318-03-82 07:05:000.0[facility] ZblpnpbOCFWMBALVU5899-79-78 07:05:0061.3[facility] VdrrfroWATBTUVJYC4857-81-65 07:05:0029.5[facility] PLWRZYQBTQ4882-26-29 07:05:004.4[facility] CzylvkpFNXDVFDRQE8166-95-91 07:05:000.5 [facility] NsmtytzKFZUHZHMAQ3214-66-21 07:05:004.3[facility] PqtcuipQCYBQC2598-39-30 07:05:00 Test Item Value Reference Range Interpretation Comments CHD Risk (test code = CHD Risk) 1.75 1 4.00-7.30 [facility] NzbwltkATNGDF2098-45-25 07:05:00 Test Item Value Reference Range Interpretation Comments VLDL (test code = VLDL) 14 1 [facility] HzmcysmYENOHM7842-55-35 07:05:0024[facility] QayyqeyCUBLPJ9954-92-92 07:05:0071[facility] MqsuwfdNIPTAI8083-50-50 07:05:0051[facility] HermannLIPIDS 2018-11-30 07:05:0089[facility]annSPECIAL XGMHFMVDF9464-77-27 07:05:006.8 [facility] TdianbhTFXOZWGVAG1587-81-42 18:17:00 Test Item Value Reference Range Interpretation Comments MCH (test code = MCH) 30.1 pg 27.0-31.0 [facility] AnaecohDGMIDYNREW3868-64-54 18:17:0032.4[facility]annHEMATOLOGY 2018-03-29 18:17:0092.8[facility] MtvkqzdHIMAOFHOIR9345-87-26 18:17:0011.5[facility] QgmwdusZLLRJAVRRH2601-98-22 18:17:0035.6[facility] UdqapfjBMRAWAJBMH2782-10-13 18:17:0018.2[facility] RzilypuOLKCHWYNAM4207-91-04 18:17:009.8[facility] JOABORXAQV4274-30-45 18:17:13024Jlqntdtx YmytbkrRSGYPWQHEC8825-02-74 18:17:005.9 [facility] KsjpwqdQPQACXQESQ2572-53-95 18:17:003.84[facility]annELECTROLYTES 2018-03-29 09:29:0010.6[facility] GfutemrWWBMGKWJLMLO7308-46-66 09:29:52413 [facility] KnbgrajKFFCTPMOMSQE1331-67-57 09:29:0042[facility] HermannELECTROLYTES 2018-03-29 09:29:007.9[facility] SkfhhnyQRBBLTYMDRHR9574-57-62 09:29:0026[facility] LgvdvpnCVGOKOSSQLSU9028-71-56 09:29:003.6[facility] EdlbhenSWDYCQJGKYNB4813-91-59 09:29:66383Lygqcztt LkucqreBDNPYLZMIBBD3686-69-12 09:29:21648Xsjwifrc [facility] WJPYDBAELUGD2197-50-35 09:29:001.70[facility] ElwyssvTGEONYFGEFBS6871-02-66 09:29:0020[facility] OedddohRMISMOFXMA3996-53-79 09:29:00 Test Item Value Reference Range Interpretation Comments PT (test code = PT) 17.7 s 12.0-14.7 [facility] AupzvhgLCJQANOSRG5723-57-91 09:29:00 Test Item Value Reference Range Interpretation Comments INR (test code = INR) 1.45 1 0.85-1.17 [facility] PbnllcqFIAFRU0544-02-59 09:29:00 Test Item Value Reference Range Interpretation Comments CHD Risk (test code = CHD Risk) 1.69 1 4.00-7.30 [facility] CrsihrgJUEFNR4174-66-02 09:29:00 Test Item Value Reference Range Interpretation Comments VLDL (test code = VLDL) 13 1 [facility] XlffhcuODFFLB2303-85-93 09:29:0016[facility] WdhffluQQQMAF6086-04-34 09:29:0071[facility] MiidrvvEJHMIX4976-64-00 09:29:0042[facility] HermannLIPIDS 2018-03-29 09:29:0066[facility] LgunpzzWGKIAZHQEN2305-32-71 10:42:0062.0[facility] FhzdoboWBGVBOBZHD8846-82-61 10:42:0030.0[facility] YinivwgTPCYBDKLQO4797-67-48 10:42:498501Vlfsjngk PkpocfuJMRRDZOHNI0757-42-49 05:33:008[facility] HermannCHEM KLFAL2362-14-13 22:16:003.5[facility] MmlvyvsAVDXHCONDP9041-67-60 22:16:41942.44 [facility] VcwnfxzXMOXRAKUGM5869-86-51 22:16:0013.69[facility] HermannIMMUNOLOGY 2018-03-27 22:16:000.10[facility] UzeufaaDUXRRUXSPG4854-65-04 22:16:003.25[facility] HlekxrzDNOWWEQUVF7457-00-90 22:16:000.78[facility] UbthqgiGQOZEQTVNS3269-41-26 22:16:000.32[facility] IwnzgpwSLVHDNUIMG5840-84-59 22:16:000.61[facility] QZGUVQHZVD0418-03-87 22:16:007.0[facility] XeoifmtEBROXVNMLG2911-41-60 22:16:00 2.04[facility] UslxfbeBNHPSTXFTF6981-02-77 22:16:004.6[facility] HermannIMMUNOLOGY 2018-03-27 22:16:0046.4[facility] DunloqcBQQQINGGQX6014-33-89 22:16:008.7[facility] FjjpyxcMBDPDUNUXW8851-71-48 22:16:0011.2[facility] BgifbcnZCZHQKVLGO5842-87-76 22:16:0029.1[facility] HermannCARDIAC JSQJMQB8760-21-87 10:11:60921Wasclnbb UrnqfxuXGZKHNFRUQKY2402-18-95 10:11:0010.7[facility] YekkadyJFFRBMPZHIKO8128-41-96 10:11:007.5[facility] IhfkbliXRMRZVLNAQLL9732-36-00 10:11:0026[facility] KYTPQJGBPSEA1959-18-97 10:11:0022[facility] WerayalOSTCIXOXAKWZ0530-97-83 10:11:00 1.60[facility] DpexeszWIOQXJPWDOLS2034-85-53 10:11:70442Vadjfvcu [place] YKCZQIIXCPTW9456-88-94 10:11:15132Fudqnvto GzceqdzLVZOJOAIVFGY1370-20-36 10:11:003.7[facility] JczekptSNXPXXTCNVGS5995-63-53 10:11:0046[facility] ENUUGXEOWTTX8483-31-16 10:11:0087[facility] YpacuzqBJJNXJTIRF1367-03-44 10:11:00 Test Item Value Reference Range Interpretation Comments INR (test code = INR) 2.09 1 0.85-1.17 [facility] RdnvxzxYGYIXIUIJG9250-49-38 10:11:00 Test Item Value Reference Range Interpretation Comments PT (test code = PT) 23.7 s 12.0-14.7 [facility]annURINE AND JRGNY5105-17-43 14:47:00Positive *ABN*(03/26/18 8:47 AM)[facility] HermannCARDIAC VCDXSTY9186-73-74 10:02:16316Umfixmqa [facility] IDWLGMTZMTLJ3476-02-67 10:02:009.5[facility] OdxdxwvHNNMBSIPLMCO1535-56-33 10:02:0040[facility] DbzuomuTQVLHLVUBEXD4939-22-72 10:02:19606Lqqnhmsf [place] GONFVUEQRATS1998-31-11 10:02:72675Qatybmxe NluinwkOHHESENUIEWQ9344-47-57 10:02:003.5[facility] QimsehnCTJKHUHKCNJP8101-01-07 10:02:0029[facility] HRNFHYGICWWD2522-12-08 10:02:007.6[facility] UtkhfruMJCLYKCNMBBW8161-40-95 10:02:001.80[facility] ObhuavnBXWAFDDEPTMA8029-98-47 10:02:47224Vvbkurrl [facility] IOSYCDJUCQYX7919-21-42 10:02:0025[facility] LzjjyprRSDISDOKZF1248-84-64 10:02:00 Test Item Value Reference Range Interpretation Comments PT (test code = PT) 27.1 s 12.0-14.7 [facility] VaumiibJSZLDCDZIL2847-03-99 10:02:00 Test Item Value Reference Range Interpretation Comments INR (test code = INR) 2.48 1 0.85-1.17 [facility] AzhfxxzAAAEEUDARD0355-71-06 10:02:001.7[facility] 2018-03-26 10:02:000.2[facility] YxfgfurIXXLQMXGYD8139-63-24 10:02:001.4[facility] FucbfrfDHPMHSXCNB7798-08-45 10:02:003.5[facility] VhekixwYETLRLALAC8988-63-01 10:02:000.1[facility] IykxkwnSDQBHUJGVY1507-69-66 10:02:000.3[facility] DPGGSRHWSM6357-19-17 10:02:0066.1[facility] RgbiqvtQZXCXUKLIH3719-93-88 10:02:00 5.2[facility] UwvanssSTIUMTBQGI7129-57-56 10:02:0027.1[facility] 2018-03-26 10:02:001.4[facility] DwvapnuNCQRYTVPHV1867-88-62 10:02:0033.3[facility] BxxjwasUOPCCNSUUB2774-26-32 10:02:00 Test Item Value Reference Range Interpretation Comments MCH (test code = MCH) 30.6 pg 27.0-31.0 [facility] LnsujzrDQODCFNXWZ9463-77-22 10:02:0088[facility] 2018-03-26 10:02:0017.5[facility] RbmokfdUDLWJUTYHT2971-29-88 10:02:009.0[facility] JhlogobKWRUZAOUZG7083-25-06 10:02:005.3[facility] YypirlbWPOCOYBFRV6116-27-76 10:02:0011.6[facility] HjdzltfUEFTDZRQVJ6613-14-38 10:02:003.81[facility] QALWLFFPCL1979-87-38 10:02:0091.8[facility] IssnqvhKVWWWGBXZD5801-32-70 10:02:00 35.0[facility] MnhmmjyFJIOVLKRQM6770-31-67 11:24:003.78[facility] 2017-04-11 11:24:009.4[facility] CmquymgOFMSHUZDSE4665-88-61 11:24:0074[facility] YcbsqdmZONEFMSKDI3271-47-15 11:24:0016.3[facility] QlgpixwXUJNMSFKKE6835-98-06 11:24:0090.7[facility] BezpxfkXROQICDYMN1093-98-93 11:24:0033.9[facility] XEOARUXUEK6799-31-03 11:24:00 Test Item Value Reference Range Interpretation Comments MCH (test code = MCH) 30.8 pg 27.0-31.0 [facility] VwgeiijDFGCCDIFQU2572-73-21 11:24:0034.3[facility] 2017-04-11 11:24:0011.6[facility] UmrepktQALEPFMWDL8446-09-46 11:24:004.2[facility] QalkxltXJNJRPNNGV6832-48-86 11:24:005.2[facility] AmxrorkKFFIXCGQXM9798-73-96 11:24:002.4[facility] RobbvkuPXEOOGJCBZ4878-16-61 11:24:0058.5[facility] YHDWECIEIT5308-77-86 11:24:0033.2[facility] FtlgfbbZBRSHVGFBW1872-24-82 11:24:00 0.2[facility] DdyppwiMQVGWLBWDM2134-43-98 11:24:000.1[facility] 2017-04-11 11:24:002.4[facility] VrnpcigVKBPOIYDOG2581-87-97 11:24:001.4[facility] HjbtvkgIDROSENEEJ1714-04-45 11:24:000.7[facility]annURINE AND JDLYG9184-12-18 15:39:00Negative (04/10/17 9:39 AM)[facility] HmwdtctFQZKBUGCPQ7153-53-26 09:27:00 0.1[facility] LjvfqtsJHBDGBJMKT1760-87-45 09:27:000.2[facility] 2017-04-10 09:27:001.5[facility] DznclznBZZECUGGJU0470-99-88 09:27:002.3[facility] EgplxmjOHNZXBOSVO6307-31-04 09:27:000.7[facility] MqtqljkPTXRSFYMEK2399-60-11 09:27:002.6[facility] FohpgshAKVJLSNFDK7673-53-52 09:27:005.2[facility] FEXUPICYJV4027-90-17 09:27:0035.9[facility] IasnewvICCBSKOIJJ5655-78-99 09:27:00 55.6[facility] WeicohgUHOJNAJKME5198-57-90 09:27:0058[facility] HermannHEMATOLOGY 2017-04-10 09:27:009.1[facility] IbmuyduWJREWRKTOC4341-33-45 09:27:0032.5[facility] WheoicwFHIJPCPTYH9083-69-72 09:27:0034.1[facility] YbkdunbPATCVBPZII1097-78-60 09:27:0016.2[facility] CyracoaFGWCZULLZP2931-27-87 09:27:0090.3[facility] KLOAYGGUOB1135-37-85 09:27:00 Test Item Value Reference Range Interpretation Comments MCH (test code = MCH) 30.8 pg 27.0-31.0 [facility] OexumukWNIGGKOIFP3517-94-42 09:27:0011.1[facility] HermannHEMATOLOGY 2017-04-10 09:27:004.2[facility] CnsdtrnZNBZYPMSGY2610-57-02 09:27:003.60[facility] HermannANEMIA PGTEF0125-69-29 23:26:49602Ksflrbdd HermannANEMIA FHYCC9010-23-65 23:26:007.0[facility] HermannANEMIA IZTHC5981-83-96 23:26:66060Cjehnrtb Noel ANEMIA BUOKE0542-51-93 23:26:0022[facility] HermannANEMIA IQKJW1110-01-29 23:26:00 176[facility] HermannANEMIA HNOFK2187-21-36 23:26:75664Ykioeant HermannANEMIA MMAXB5386-51-92 23:26:0050[facility] HermannCHEM IJTZY6578-09-48 23:26:49779 [facility]annCHEM OZCUJ4900-38-64 23:26:000.7[facility] HermannCHEM PANEL 2017-04-09 23:26:000.3[facility] HermannCHEM NKLKG0186-86-07 23:26:000.4[facility] YkkyqasBBGRHYCIAP0327-97-22 23:24:000.8[facility] VkgedbtTRRXGDZRTR3604-41-66 23:24:00 Test Item Value Reference Range Interpretation Comments PTT (test code = PTT) 28.0 s 22.9-35.8 [facility] BpuobarNBIXWTCNIQ7500-79-13 23:24:00 Test Item Value Reference Range Interpretation Comments PT (test code = PT) 19.1 s 12.0-14.7 [facility] HflnojbARBDDXFOFC7542-72-03 23:24:001.59[facility]annHEMATOLOGY 2017-04-09 23:24:62477Wpaavifq JwvjfujWGXVWCKJGS6039-85-59 23:24:009.69[facility] DofmxohAKEBZNXUFO0642-52-08 23:24:0025[facility]annURINE AND RXEQQ8702-67-88 15:14:00<=1.0[facility]annUR[facility] AND DWRKT3093-54-88 15:14:007[facility] AND EAJJQ8805-27-48 15:14:00Negative (04/09/17 9:14 AM)[facility] VHNJS2589-66-28 15:14:00Negative (04/09/17 9:14 AM)[facility] GIQCT5512-49-00 15:14:00Negative (04/09/17 9:14 AM)[facility] VJAVI8883-84-36 15:14:00Clear (04/09/17 9:14 AM)[facility] URINE AND UYUYP5004-66-42 15:14:001.010[facility]ann[facility] AND JTXNI0135-10-04 15:14:006.0[facility]ann[facility] AND YBKQQ4101-71-39 15:14:001[facility] URINE AND KAIFX4886-91-66 15:14:001[facility] AND RFAYB6447-85-31 15:14:00Negative *NA*(04/09/17 9:14 AM)[facility] HermannCARDIAC TJYKNWT5174-21-95 02:31:31769Jeobennq HermannCARDIAC PPMEGQT5448-44-80 02:31:003.7[facility] CARDIAC RJZIKEC1434-24-39 02:31:000.18[facility] HermannCHEM UFSLF8946-36-33 02:31:00<10.0[facility] AymkxopMZNHXLWNMCNJ4219-68-55 02:31:0011.4[facility] AhyoyyyAOVMVZPIYWZB1579-95-27 02:31:0028[facility] FktavuyFRBLZVJOWWOK6073-53-16 02:31:0023[facility] MzeznjyWLHGQZCEUSQO9969-65-63 02:31:002.40[facility] DYIYRKHCHKNN8080-42-43 02:31:55090Vcknyywn LkxwbzdALNEQUUCIKUA8152-23-44 02:31:003.4[facility] RmflgczLJHBFDJXBTNE2044-65-24 02:31:74547[place] LQUUWATRUWID8404-57-54 02:31:0026[facility] CdtfmfkFRGZGVTNZEQC4251-99-31 02:31:00 8.1[facility] HjhpyopEUWGZWEISWRL5916-31-14 02:31:35543Cqmwhcyc HermannHEMATOLOGY 2017-04-09 02:31:0061[facility] UqocbniYTALIMMCXC1763-04-69 02:31:0016.6[facility] HvjmqyvLSZMLDGXQW9244-57-26 02:31:0033.3[facility] EqiwltxEROQPLQJIU7991-17-46 02:31:0091.2[facility] YypczhsCLGEILWGNF3123-64-27 02:31:00 Test Item Value Reference Range Interpretation Comments MCH (test code = MCH) 30.4 pg 27.0-31.0 [facility] AeuiiarFMZMCSHGXV4775-15-53 02:31:004.3[facility] HermannHEMATOLOGY 2017-04-09 02:31:003.84[facility] ZvvpshgPANPOCLYFT6572-78-74 02:31:0011.7[facility] NsdhpnjIQPXMERKOS3539-11-02 02:31:009.5[facility] RbbxyipGSEYVSVOXI5013-53-70 02:31:0035.0[facility] TzsfzfzJMSDBGIAWY3653-63-55 02:31:00 Test Item Value Reference Range Interpretation Comments PTT (test code = PTT) 26.7 s 22.9-35.8 [facility] GuvbnrsYGCKTEAMCM8268-97-18 02:31:001.67[facility] HermannHEMATOLOGY 2017-04-09 02:31:00 Test Item Value Reference Range Interpretation Comments PT (test code = PT) 19.8 s 12.0-14.7 [facility] NqdswzrDUBTUPEWFV3832-26-15 02:31:0026.2[facility] HermannHEMATOLOGY 2017-04-09 02:31:0069.6[facility] TurofviDWOWEWDWNV4233-66-04 02:31:001.0[facility] VzfqlgpECJUNYIEBY4167-08-40 02:31:003.0[facility] CajrxccHBXQFLMGIL0641-80-12 02:31:000.2[facility] FdnpmhsZMKCIDCHSR3235-87-46 02:31:000.1[facility] MUFDVIVBVQ7634-50-26 02:31:001.1[facility] SrnniimCWKCPIKBTE7787-82-79 02:31:000.0 [facility] SxhegqgGOGVHXKZPO2159-12-10 02:31:003.0[facility] HermannHEMATOLOGY 2017-04-09 02:31:000.0[facility] LbrdfupSVTNDYRCBM3879-38-26 10:18:0010.7[facility] JsnbhdhMGZQMIUOWA1579-43-57 10:18:0092.8[facility] FhsqgcbGWGYZMTWLE4623-44-78 10:18:00 Test Item Value Reference Range Interpretation Comments MCH (test code = MCH) 30.5 pg 27.0-31.0 [facility] SpoparkAFPQFDICVR3793-63-01 10:18:0012.3[facility] HermannHEMATOLOGY 2017-03-23 10:18:0037.5[facility] BgoqmubDJMFYSENPS0190-50-63 10:18:0032.9[facility] RnzztqxJIEKHYXZUE9443-84-79 10:18:0041[facility] HgjaiheCBZWGWTQLP8202-38-60 10:18:0016.7[facility] EysrngsMOZPBLBUZL6393-62-70 10:18:006.8[facility] CKLMSGRXPP8729-64-79 10:18:004.04[facility] NwwcahkHQIAJHTTFL5544-22-41 10:18:00 0.1[facility] AnwdnfiQWENOSQFMD6687-10-13 10:18:003.2[facility] HermannHEMATOLOGY 2017-03-23 10:18:001.3[facility] BmxhyonYBRXWGGLMW4173-71-97 10:18:0073.3[facility] MekilodHEGFAOZQBJ5816-07-81 10:18:0022.1[facility] VchzkjwMJTKEKVUCM7626-08-72 10:18:000.0[facility] RuieupmAQAXWJIRFM8104-31-36 10:18:000.2[facility] SCLZJHIMHQ2796-03-68 10:18:000.1[facility] OcomptvQJMQLDWPTA2395-70-38 10:18:005.0 [facility] TaicjyjOPUWQQYCNS4788-04-42 10:18:001.5[facility] HermannHEMATOLOGY 2017-03-22 10:26:0092.0[facility] MzgggfbZEMNBEWBJD6894-81-41 10:26:0011.9[facility] CovpqxuEFSNVZHMGE3429-46-93 10:26:00 Test Item Value Reference Range Interpretation Comments MCH (test code = MCH) 30.5 pg 27.0-31.0 [facility] OvilcukGIMXWOUGWV9651-37-64 10:26:0035.7[facility] HermannHEMATOLOGY 2017-03-22 10:26:008.9[facility] UszacqeXAQYJVFRDT0391-77-42 10:26:0058[facility] IghrapqOTDPTQQTBC4144-50-96 10:26:0016.4[facility] IxxkdmpHWMKYTHNPK6088-71-70 10:26:003.88[facility] ZgkpwemCLMSNBXNYJ6452-17-82 10:26:005.3[facility] IGNBPATKCJNV9700-10-35 10:26:0015.8[facility] WzpobgkFPAVSXUBGGTI3045-60-57 10:26:008.8[facility] XgwelhlXZLRUBJASQPH4591-60-16 10:26:0026[facility] MXYKNBGUBZYM9149-22-04 10:26:82126Uarxjiou WtczwfgSSGSGJOSZQYQ7988-85-45 10:26:0040[facility] JtnltqiZEZPTGKXNRBE4623-20-32 10:26:0096[facility] SGRBEOZIHCWX5642-51-08 10:26:003.8[facility] AaaampiVIELXPEAJAMG2460-96-80 10:26:0025[facility] QdcoikcEBPDJUPOLNXJ0789-10-86 10:26:10580Zuawvjev Noel WUUKPFPSUDPC2987-35-23 10:26:002.60[facility] CqxgywrTMTIAHDUKS5652-59-96 10:26:00 0.3[facility] SxecgmfIEXKWEORNL0859-00-15 10:26:001.2[facility] HermannHEMATOLOGY 2017-03-22 10:26:000.1[facility] MidtdyySSRYNZNQCF4766-36-41 10:26:003.7[facility] JayroywJNPZHDUIMR2097-12-14 10:26:0069.6[facility] OosfpbtKCNLYZLUGN9610-87-01 10:26:0023.0[facility] QgbqkczNADEIBWIGT7079-66-57 10:26:001.9[facility] JIRZGTCKRS7466-21-63 10:26:004.9[facility] QwwikalLLJOAGYBMH7135-19-08 10:26:000.6 [facility] QawbmvmGWACPVFGHP3471-38-44 10:26:0033.2[facility] HermannELECTROLYTES 2017-03-21 09:55:0014.5[facility] UcnwwkaPYBLMAYILDOD4321-53-97 09:55:0022[facility] EpvfznuZKXVEPPXOHGW4211-82-06 09:55:002.90[facility] NdvzukyIEDGEAZCJRLC1148-98-47 09:55:0044[facility] FoamgmdLKYNUEDHAJPZ7433-12-61 09:55:0097[facility] VYXKAIZNOWBM1950-67-01 09:55:88383Chjhabfa HwdiqmiRWSQASNLMWHH8857-20-54 09:55:003.5[facility] YwretgeKRGULBLZBZXY3319-14-19 09:55:009.0[facility] BOFAZGDTOBVT3788-66-38 09:55:0027[facility] FaytndzREPVXDUKSTGS0174-52-78 09:55:00 101[facility] LswozomTGVGJNAAPR1037-80-69 09:55:000.0[facility] HermannHEMATOLOGY 2017-03-21 09:55:001+ *ABN*(03/21/17 3:55 AM)[facility]annHEMATOLOGY 2017-03-21 09:55:001.4[facility] FmohbmtEBWRCQYHBZ8719-94-45 09:55:004.9[facility] MnnmwhlKGPKKPYLBA0099-77-35 09:55:0027.5[facility] MhoaarzRQWXVDKGZF0963-68-49 09:55:000.2[facility] UzwxomhVINZSNUNOJ2055-12-11 09:55:001.4[facility] TIXWWGPLUO9630-99-45 09:55:000.6[facility] OrajplcJNNNAXYCHQ2354-91-26 09:55:003.3 [facility] SdrqqsmLHWINJTPSM4989-27-64 09:55:0065.6[facility] HermannHEMATOLOGY 2017-03-21 09:55:000.1[facility] IqpxmbbDXKUCDIQUB5274-04-49 09:55:00 Test Item Value Reference Range Interpretation Comments PT (test code = PT) 14.3 s 12.0-14.7 [facility] EboewnpDSJDWMKMKY6504-87-05 09:55:001.11[facility] HermannHEMATOLOGY 2017-03-21 09:55:0012.0[facility] ItxegcjLBPTOARLFW9174-09-27 09:55:0035.4[facility] RlckrzrQLJCSKWTQA6025-18-14 09:55:0091.2[facility] PmyjxztKCBGCQVDGU2411-25-52 09:55:003.88[facility] PjfiqhpDFRCFQCFML9967-63-37 09:55:005.0[facility] XCPPRUCREP6530-14-58 09:55:0016.3[facility] KzdwsxgNHFUXKQHMF0579-19-51 09:55:0065 [facility] KyhxqwjDAPPORAVVA3471-25-99 09:55:008.8[facility] HermannHEMATOLOGY 2017-03-21 09:55:00 Test Item Value Reference Range Interpretation Comments MCH (test code = MCH) 30.8 pg 27.0-31.0 [facility] XotkwnjEDEABLRLSV7823-20-60 09:55:0033.8[facility] HermannIMMUNOLOGY 2017-03-21 09:55:00Negative (03/21/17 3:55 AM)[facility] HermannELECTROLYTES 2017-03-20 11:35:0016.2[facility] SokbkuhRNJCVLUOODLZ1633-89-26 11:35:0024[facility] JmiezohZNUQXOZZZTBK9817-36-49 11:35:009.1[facility] EryddeiYBMXSUHEHMDV2596-52-05 11:35:0095[facility] HmigzcpKSPCUUDVXOWK7875-49-92 11:35:0043[facility] VHZOARNOYCWH7818-99-65 11:35:0098[facility] IkljyrxEWZTWCRBJQIY1489-50-65 11:35:00 3.2[facility] DjybtmjWOBTTAGOZFLR6186-68-10 11:35:0024[facility] HermannELECTROLYTES 2017-03-20 11:35:27731Lzyyjgnq PfjnhyvVCLRBAUFDZIL1395-14-38 11:35:002.70 [facility] HokowhyAEGIABVTJI2863-22-96 11:35:00 Test Item Value Reference Range Interpretation Comments PT (test code = PT) 14.4 s 12.0-14.7 [facility] AianscnLYBAWLVYEL4084-53-41 11:35:001.12[facility] HermannHEMATOLOGY 2017-03-19 11:42:001.20[facility] PwxlpupWKWWDRHQPV1775-39-59 11:42:00 Test Item Value Reference Range Interpretation Comments PT (test code = PT) 15.3 s 12.0-14.7 [facility] HermannCHEM RCYCB3582-38-91 14:57:002.3[facility] HermannCHEM PANEL 2017-03-18 14:57:002.9[facility] HermannCHEM KJYFE9960-62-03 14:57:002.0[facility] LvgwfyvQUBVVMXJET5366-08-56 14:57:000.0[facility] MvleixuULMSTUAKUG4475-96-62 14:57:00 Test Item Value Reference Range Interpretation Comments PTT (test code = PTT) 38.2 s 22.9-35.8 [facility]xwWYTAZLAGGU3652-74-82 14:57:00<10[facility] HermannHEMATOLOGY 2017-03-18 07:48:00 Test Item Value Reference Range Interpretation Comments PTT (test code = PTT) 49.8 s 22.9-35.8 [facility] SoutheastOaagpcgHGOMPEBZVL6703-43-11 02:24:00 Test Item Value Reference Range Interpretation Comments PTT (test code = PTT) 33.2 s 22.9-35.8 [facility] SoutheastEesdfctSDXDNISDDT3128-36-01 18:58:003.61[facility] HermannHEMATOLOGY 2017-03-17 18:58:78670Yxcpugqo YgjugcqACIAIPGJYJ4652-56-39 18:58:00Negative 1(03/17/17 12:58 PM)[facility]LxlehmeQANOZVZTDA1306-04-98 18:58:00 Test Item Value Reference Range Interpretation Comments Pat Od Value (test code = Pat Od 0.069 1 Value) [facility] TaylorXiiofejFFDEIVGZGA0079-38-22 18:58:00 Test Item Value Reference Range Interpretation Comments Pos CO Value (test code = Pos CO 0.400 1 Value) [facility]annCHEM JCDMV3311-57-19 10:09:003.0[facility] HermannCHEM PANEL 2017-03-17 10:09:002.4[facility] HermannCHEM OHNSB3807-74-86 10:09:002.3[facility]annURINE AND AGUXV9221-77-45 02:57:006.0[facility]annUR[facility] AND STOOL 2017-03-17 02:57:001.012[facility]annUR[facility] AND CQTTB1020-61-17 02:57:00 <=1.0[facility]annUR[facility] AND JWOTI4321-90-36 02:57:001[facility]UR[facility] AND DTLXP0173-82-74 02:57:00Negative (03/16/17 8:57 PM)[facility] BSUVS2667-14-66 02:57:00Negative (03/16/17 8:57 PM)[facility] TCGIJ4333-47-83 02:57:00Negative (03/16/17 8:57 PM)[facility]UR[facility] AND CTJVT7299-99-63 02:57:00Negative *NA*(03/16/17 8:57 PM)[facility]annUR[facility] AND JMMVQ4607-20-30 02:57:00Clear (03/16/17 8:57 PM)[facility]annURINE CHEM 2017-03-17 02:57:000.1[facility]annURINE VULD7411-91-04 02:57:00None Seen (03/16/17 8:57 PM)[facility]annURINE HVMU6679-72-10 02:57:76225.00[facility]annURINE EGAL0938-48-43 02:57:0014.8[facility]annURINE CCEM6825-56-36 02:57:0033[facility] HermannCARDIAC KFGWDEH6340-66-83 19:09:001.8[facility] CARDIAC DNYHANR3521-62-88 19:09:63990Xwkydkrj HermannCARDIAC WQBUJCM4164-79-45 19:09:002.1[facility] HermannCARDIAC OHSYSGH0425-20-96 19:09:000.15[facility] HermannCARDIAC ZSNBTEF9508-61-93 19:09:54170Uprnadir HermannCHEM GZLOT2779-89-32 19:09:000.07[facility] QgpbttsIPPGHNOTKJ9253-64-39 19:09:0054[facility] AZGNFDRMRCXM0039-46-55 09:32:0015.7[facility] JsqnxorYNXINYEMNUFR8797-65-11 09:32:0024[facility] AhyuyokVIOSGTKUQDDV1860-89-25 09:32:60377Ge[place]ocyrv [place] MESOYMZQNLWI5032-69-44 09:32:003.7[facility] ShxtkjdCWCOOKFCCNOB3019-62-32 09:32:88402Sursjcjp WqllusyBVWMDRLAERAD5545-73-96 09:32:0043[facility] [place] RDKFOFOBENLG5979-81-79 09:32:007.9[facility] BrcdhxbWTPKYEJFLJVA1948-23-75 09:32:77323Urvekdxq HikokdpGBVCMNVGQXBT8975-25-55 09:32:0034[facility] FEFCFZCXJHMC6855-83-90 09:32:001.70[facility] CnpmsgdMPGLTH2519-17-34 09:32:0017 [facility] ValnmhlTMDXRL0305-75-65 09:32:0031[facility] RrqrkjwVAYMHL5376-34-97 09:32:72585Fdmfboal EeryczqPXMQPP4026-38-59 09:32:0085[facility] HermannLIPIDS 2016-03-11 09:32:001.89[facility] QaozavfOIIYDT5420-74-50 09:32:0054[facility] HermannCARDIAC RPGOTQL2016-79-26 21:57:56516Lbysfvpw HermannCARDIAC ENZYMES 2016-03-09 21:57:002.0[facility] HermannCARDIAC MFHKXZN0527-93-83 21:57:000.19 [facility]annCARDIAC GXPUYQC2204-91-95 21:57:001.7[facility] HermannCARDIAC UPFQHMC6779-62-70 21:57:0084[facility] HermannCHEM LHXQP9286-87-90 21:57:0035 [facility] HermannCHEM ZOXMH2691-11-11 21:57:0029[facility] HermannCHEM PANEL 2016-03-09 21:57:003.8[facility] HermannCHEM EHKZV0846-22-50 21:57:008.2[facility] HermannCHEM MIBVI1970-10-50 21:57:51580Iooksnhw HermannCHEM UGLCN8268-96-79 21:57:70656Wxopzbbx HermannCHEM LJTJW1199-23-43 21:57:002.00[facility] HermannCHEM SUTPZ9359-34-99 21:57:0034[facility] HermannCHEM NCCAC4871-89-99 21:57:66351 [facility] HermannCHEM FGYBC9134-80-04 21:57:0013.8[facility] HermannHEMATOLOGY 2016-03-09 21:57:0010.1[facility] WbpixudGYDRZBXRFA8896-74-43 21:57:37641Wfwjsumw LurlpfdFTBYTFYMIY7802-66-00 21:57:0018.7[facility] SevidoaYPSATNFCKS9704-33-93 21:57:0012.4[facility] MlfssjxZZZVKTKCZD9891-74-58 21:57:0032.0[facility] ZPUVKGZBDO1712-23-62 21:57:00 Test Item Value Reference Range Interpretation Comments MCH (test code = MCH) 27.8 pg 27.0-31.0 [facility] BobjxkgQFGPOZRVGQ0929-14-79 21:57:0086.7[facility] HermannHEMATOLOGY 2016-03-09 21:57:0038.7[facility] CjneoomSRYQNHJDQV6633-60-59 21:57:004.46[facility] UswlpjfOVMNNSHIVC1404-40-99 21:57:006.5[facility] LqwpgmxDBFXCIKHUG4056-97-26 21:57:003.9[facility] NxwbfllJIPMFFWJBV6549-52-58 21:57:002.0[facility] [place] ASSNQEIXLF8777-49-76 21:57:004.1[facility] SiztfdmLTMWNBFEJX0070-71-28 21:57:000.0 [facility] JbgahgqOOHVHYZPDV9502-51-32 21:57:000.5[facility] HermannHEMATOLOGY 2016-03-09 21:57:001.7[facility] ChgmsxiZQBJNCMEDA8224-53-28 21:57:000.1[facility] EjghxmlEUPCENQIFQ5984-44-22 21:57:000.3[facility] WptjeblDCPURSMNUC7475-92-50 21:57:0030.7[facility] XplgvliWZQKOGPHIM0068-77-99 21:57:0063.2[facility] URINE AND QKHSY3891-60-72 21:57:006[facility]annURINE AND NZFDI2471-36-79 21:57:001[facility]annURINE AND SOHZG0970-83-96 21:57:00Small *ABN*(03/09/16 4:57 PM)[facility]annUR[facility] AND PJDIQ5965-30-83 21:57:00Negative (03/09/16 4:57 PM)[facility]annUR[facility] AND HIICJ3817-22-53 21:57:00<=1.0[facility]annURINE AND VJQVN8014-63-30 21:57:00Negative *NA*(03/09/16 4:57 PM)[facility]annUR[facility] AND XSZVJ5389-84-11 21:57:00Negative (03/09/16 4:57 PM)[facility]UR[facility] AND TGBIS6264-20-22 21:57:007.0[facility]annURINE AND STOOL 2016-03-09 21:57:00Clear (03/09/16 4:57 PM)[facility]annURINE AND STOOL 2016-03-09 21:57:00Light Yellow *NA*(03/09/16 4:57 PM)[facility]annURINE AND GAGAE6952-36-16 21:57:001.009[facility] HermannCARDIAC XPIRZKS0677-63-80 09:41:00 1.0[facility] HermannCARDIAC MWAPVGV2688-81-71 09:41:000.9[facility] HermannCARDIAC QSNECGO5979-55-77 09:41:000.17[facility] HermannCARDIAC IHESLWD7084-24-00 09:41:00 91[facility] QafqshyBHUBMUSUZIIB6589-97-46 09:41:0012.1[facility] QQMSRNCNWJRV4447-46-02 09:41:004.1[facility] HlpzpeiLOQUALEICDYU9925-84-16 09:41:90358Zqwyrvqd QkatajsGDXAUSLKEGOJ9895-90-13 09:41:0034[facility] USAFFVSANYZR6888-78-21 09:41:0030[facility] VgwzoynKGRKLDSDAKBU1663-88-00 09:41:00 8.5[facility] EbrkmwaCETYCVRUIJST1917-94-93 09:41:0093[facility] HermannELECTROLYTES 2016-01-18 09:41:0027[facility] CgxooqgLNVWFCWQNOYC9474-13-35 09:41:002.05[facility] WfkzdohCGLCLPNJDSAW0344-36-17 09:41:96433Ffnktcsm PoyfdfpZNLUMWBXFB4884-73-87 09:41:0087.5[facility] ScosozcDNJBOBPEFD6402-14-91 09:41:00 Test Item Value Reference Range Interpretation Comments MCH (test code = MCH) 28.0 pg 27.0-31.0 [facility] CvxkgraFCXOPSCEXV0656-92-25 09:41:0017.7[facility] HermannHEMATOLOGY 2016-01-18 09:41:0032.0[facility] KwxujbkMDYPCYWQYD8384-04-31 09:41:008.8[facility] TajybmyMEXTYRYNBG0358-34-83 09:41:64464Fdgtkabo KahfcekYDFLVQXNJT6442-15-31 09:41:005.2[facility] QcgzdcrZZWXZYSLCW4635-73-97 09:41:0032.9[facility] [place] IPDOBOUQDL4564-59-00 09:41:0010.5[facility] FvzeaasXURHBFUMAU4561-67-16 09:41:00 3.76[facility] UzknnoaQYKTLXVLCB7904-53-56 09:41:005.9[facility] HermannHEMATOLOGY 2016-01-18 09:41:0053.3[facility] BgdtaahBYJDZTVWMT9404-00-91 09:41:003.7[facility] UnkqgueLWWJODJCGW6190-83-63 09:41:0036.8[facility] HbxllhyLVJCBZICUQ0542-53-92 09:41:001.9[facility] QksvfziUUVKSKTFYH1969-19-53 09:41:000.3[facility] DKDIHYGEAH3904-29-80 09:41:002.8[facility] RddearyDHITNZCBPV2167-46-67 09:41:000.0 [facility] KqlipizICXTXVPVPL2439-25-86 09:41:000.3[facility]annHEMATOLOGY 2016-01-18 09:41:000.2[facility] GycbdxaRJRCRW5145-40-22 09:41:0017[facility] MluqqynZRHGJA8050-16-82 09:41:0034[facility] QgexscwHILJAE0673-37-09 09:41:0084 [facility] YwakhkkRPWEBW3669-73-43 09:41:0051[facility] TwuurdlJYLQCU4110-40-97 09:41:88226Qmauficc RvjmrnhYNDDOG8739-16-31 09:41:002.00[facility]annCARDIAC RYYGHKF1951-96-87 02:20:001.3[facility]annCARDIAC TOWEQUM9600-79-13 02:20:00 1.2[facility]annCARDIAC OYJEHBZ8999-19-03 02:20:000.16[facility]annCARD[facility]AC PNCHLRC7707-77-19 02:20:0095[facility] TgvvnfgOBPJPTODRJ8918-25-36 02:20:00 Test Item Value Reference Range Interpretation Comments PTT (test code = PTT) 28.0 s 22.9-35.8 [facility] VdrwpidEIZKYMEWDS1653-27-64 02:20:001.22[facility]annCARDIAC ENZYMES 2016-01-17 21:51:001.6[facility]annCARD[facility]AC RXHEJOE9310-49-52 21:51:000.18 [facility]annCARD[facility]AC VXCHTWK2111-49-93 21:51:58969Zqstwozz HermannCARDIAC LVJNOGC7685-07-15 21:51:72493Iyavevah HermannCARDIAC LEKVWBV7437-05-57 21:51:00 1.5[facility]annCHEM RHTTC1857-46-65 21:51:0035[facility]annCHEM PANEL 2016-01-17 21:51:000.6[facility]annCHEM UCPGE6933-32-32 21:51:005.1[facility]annCHEM VFZSE6918-96-83 21:51:0013[facility]annCHEM KZPFU3992-66-44 21:51:0082[facility]annCHEM KYQZM4550-83-37 21:51:0011.9[facility]annCHEM JUOID4408-75-58 21:51:000.3[facility]annCHEM YXKDQ2203-97-88 21:51:0012 [facility]annCHEM TVVXG7084-23-06 21:51:0014[facility]annCHEM PANEL 2016-01-17 21:51:003.1[facility]annCHEM KVZTJ2727-25-06 21:51:0027[facility]annCHEM BKVRR1558-55-06 21:51:57399Eedvzuli HermannCHEM YEMJP2750-62-81 21:51:008.2[facility]annCHEM VORHN2651-22-19 21:51:008.1[facility]annCHEM TFVUS2850-63-81 21:51:002.02[facility]annCHEM UMGZC5205-14-04 21:51:0028 [facility]annCHEM XRGLK4254-83-63 21:51:04959Vucgecpx HermannCHEM PANEL 2016-01-17 21:51:003.9[facility]annCHEM DRPTA2742-79-71 21:51:00048Hijgoujw KhpqfjzJJBIJTVFKL3436-60-46 21:51:0032.7[facility] ZseimkyHATNSRMMOK8518-98-49 21:51:0087.5[facility] KeikvbpGRZMRXVELD8725-78-56 21:51:00 Test Item Value Reference Range Interpretation Comments MCH (test code = MCH) 28.0 pg 27.0-31.0 [facility] RgdaqbuZNNJIDSAOL2149-57-72 21:51:0032.0[facility]annHEMATOLOGY 2016-01-17 21:51:0017.9[facility] ZpegolsBHXDCIMYMR1935 21:51:78657Kdeqajce DraxaeaUFJAXQJPUE5138-40-85 21:51:008.3[facility] ColwmtuMLQSBENAZU9052-06-83 21:51:005.5[facility] AddigreCSYSHTNKRQ5375-93-47 21:51:003.73[facility] JCWGGVHTEH4740-28-79 21:51:0010.4[facility] NuzfouuXHTMMBPQPT5504-31-73 21:51:00 33.3[facility] QduvilgEMTBWBZRTX7676-01-88 21:51:002.5[facility]annHEMATOLOGY 2016-01-17 21:51:005.8[facility] OeyokptBZFZKDPOIZ9433-74-70 21:51:000.3[facility] VljdseeFSDYGEYQPM3208-64-05 21:51:003.2[facility] HcpeopbLLYATBSJBS5809-31-88 21:51:001.8[facility] LvafkxfENIESUJFEM9600-38-87 21:51:000.3[facility] LWATFVBOUD9440-03-37 21:51:000.1[facility] UqucwopJOHMUQLDLM1612-68-53 21:51:000.0 [facility] TehkildLAAVITQGTE3236-59-31 21:51:0058.1[facility] HermannCHEM PANEL 2015-05-28 21:44:0047[facility] HermannCHEM QBHKA7771-05-19 21:44:0012[facility]annCHEM HMXBD6201-50-03 21:44:003.5[facility]annCHEM MFFYY3745-56-85 21:44:007.7[facility]annCHEM DEZLW7248-01-76 21:44:0076[facility]annCHEM IDNLY8513-75-37 21:44:000.4[facility]annCHEM TPKQT2686-47-59 21:44:0017 [facility]annCHEM BFZNI3129-10-56 21:44:001.60[facility]annCHEM PANEL 2015-05-28 21:44:85667Oxsuuylu HermannCHEM FXFKW3122-16-96 21:44:004.3[facility] HermannCHEM DAQLA2467-07-08 21:44:34731Ppcsgfkd HermannCHEM YNVXH4473-67-75 21:44:008.5[facility] HermannCHEM ICUXA8287-54-08 21:44:0028[facility]annCHEM DENTJ7759-57-74 21:44:0082[facility]annCHEM RXOJY8128-64-59 21:44:0027 [facility]annCHEM QBHNM8475-15-50 21:44:000.8[facility] HermannCHEM PANEL 2015-05-28 21:44:004.2[facility] HermannCHEM MPWFL9228-15-69 21:44:0010.3[facility]annCHEM NSLWG9243-33-31 21:44:0017[facility] RdmsalvHAWKUCLSCA0790-87-19 21:44:00 Test Item Value Reference Range Interpretation Comments PTT (test code = PTT) 23.6 s 22.9-35.8 [facility] ZgsesfmDSGWOSVDBI0726-19-16 21:44:001.12[facility]annHEMATOLOGY 2015-05-28 21:44:00 Test Item Value Reference Range Interpretation Comments PT (test code = PT) 14.7 s 12.0-14.7 [facility] WmfrrcySOWSSBTVYW8412-79-65 21:44:0072[facility]annHEMATOLOGY 2015-05-28 21:44:009.8[facility] NvkhdoiAUFRBMADRI0986-36-02 21:44:0018.5[facility] KcwoijlHDRYTEATON7503-40-15 21:44:0033.3[facility] AxbblldAQPOJIWZFT3712-57-77 21:44:0087.0[facility] TenbopmYYZKFYFLVR9030-62-63 21:44:00 Test Item Value Reference Range Interpretation Comments MCH (test code = MCH) 28.9 pg 27.0-31.0 [facility] HgihcgjWXLFJGBCLF0856-13-93 21:44:0036.7[facility]annHEMATOLOGY 2015-05-28 21:44:0012.2[facility] VsrwujnTPLOVIQVYF4493-11-83 21:44:004.22[facility] PdmmewiEOMSZJQSMI7751-65-45 21:44:005.9[facility] FgmqdbsCWNOXXDDPP7316-78-83 21:44:000.1[facility] FvwgicmDLLUASIOBO1464-77-22 21:44:000.0[facility] ZJACDEEEGH5245-42-96 21:44:000.5[facility] JkcvijyJCLVLTIFFF8082-84-18 21:44:001.7 [facility] VaaircrXBRMWXRKJL9897-43-70 21:44:003.6[facility]annHEMATOLOGY 2015-05-28 21:44:002.3[facility] VbjsodfWLMZRQFPLR7907-46-86 21:44:008.0[facility] YtnlyxjUZQGAMWOMR7208-63-30 21:44:0028.5[facility] WqsaztjIBBVZWPKGB6792-96-19 21:44:000.3[facility] TcrxtetWHHVIFJIPP5847-24-71 21:44:0060.9[facility] URINE AND GCEIT3384-98-65 21:44:00None Seen (05/28/15 3:44 PM)[facility]INE AND AMMVF4818-90-93 21:44:00None Seen (05/28/15 3:44 PM)[facility] URINE AND AZMQF7762-44-82 21:44:00Large *ABN*(05/28/15 3:44 PM)[facility] URINE AND PYGRI2630-80-52 21:44:000.2[facility]annURINE AND QGBFT3829-02-49 21:44:00Positive *ABN*(05/28/15 3:44 PM)[facility] YJJRN5465-19-30 21:44:00 Test Item Value Reference Range Interpretation Comments UA Spec Grav (test code = UA Spec 1.015 1 Grav) [facility] EMTZR6797-03-52 21:44:00Slight Cloudy (05/28/15 3:44 PM)[facility] AFPXV6570-78-53 21:44:00 Test Item Value Reference Range Interpretation Comments UA pH (test code = UA pH) 7.0 1 5.0-8.0 [facility] MXPNV5390-81-12 21:44:00Yellow *NA*(05/28/15 3:44 PM) [facility] [facility] AND BGRHH2597-09-43 21:44:00Negative (05/28/15 3:44 PM) [facility] SUMHT7024-85-78 21:44:00Negative *NA*(05/28/15 3:44 PM) [facility] YHBBL8883-94-94 21:44:00Moderate *ABN*(05/28/15 3:44 PM)[facility] VTQTP6579-04-40 21:44:00Negative *NA*(05/28/15 3:44 PM)[facility] VaatwuzOSXKNMHPUI1551-14-86 20:07:00 Test Item Value Reference Range Interpretation Comments POC PT (test code = POC PT) 12.2 s 12.0-14.7 [facility] UvhaxjhLWMMRFUTIU3125-45-23 20:07:001.0[facility]annCARDIAC ENZYMES 2015-04-22 00:26:000.9[facility]ARD[facility]AC FGMHFPW7795-06-53 00:26:000.20 [facility] EZCPFHW8892-65-82 00:26:001.6[facility]annCARD[facility]AC JDENHYL8822-86-04 00:26:92701Bwbakegp [facility]CARDIAC UVAGJLS0416-04-01 17:11:00 0.24[facility]AC GBAKFEH9070-03-45 17:11:002.3[facility]annCARDIAC DAPVVPX8242-81-46 17:11:97588Htslkaqc [facility]annCARDIAC JCJSBPR4642-67-25 17:11:00 1.7[facility]annCARD[facility]AC BMPLUQP2655-65-02 09:10:77064Ykjcfjth [facility]annCARDIAC OMGYNYO0933-90-31 09:10:001.8[facility]annCARDIAC IHVIMTL8836-85-47 09:10:00 0.24[facility]AC VOZJEWJ3398-81-38 09:10:16277Gawzrber [facility]annCARDIAC NCPOPJD9263-86-22 09:10:001.4[facility] HermannCHEM PBWAQ3559-25-14 09:10:002.2 [facility]annCHEM GTBPX7766-54-67 09:10:002.0[facility]annCHEM PANEL 2015-04-21 09:10:0097[facility]annCHEM QISHO5287-79-28 09:10:0020[facility]annCHE[facility] BQMSH7625-46-57 09:10:006.9[facility]annCHEM QUJES9411-95-24 09:10:003.1[facility]annCHEM HDCMP2739-29-10 09:10:0018[facility]annCHEM NOURV6127-19-89 09:10:001.70[facility]annCHEM KHIIR5941-47-69 09:10:67726 [facility]annCHE[facility] VDVFU9744-04-61 09:10:16371Gcxzwzqv HermannCHEM PANEL 2015-04-21 09:10:0073[facility]annCHEM GOEGP5049-63-19 09:10:003.6[facility]annCHEM CXMPS5789-81-50 09:10:0024[facility]annCHEM QQIFY2415-67-76 09:10:0043[facility]annCHEM ULWBO8342-54-34 09:10:008.2[facility]annCHEM EGOQQ1296-23-69 09:10:0027[facility]annCHEM QMKFC1128-37-81 09:10:000.5 [facility]annCHEM PPPEZ4752-46-34 09:10:0012[facility]annCHEM PANEL 2015-04-21 09:10:003.8[facility]annCHEM WBEOR4462-43-26 09:10:000.8[facility]annCHEM BBDYS0729-31-78 09:10:0011.6[facility] BhvyvjuGTDDTNHQJL6521-29-65 09:10:0088.7[facility] JjctdvfCBTZDPTRNK5777-76-05 09:10:003.94[facility] ICQJMIYQWD8582-98-05 09:10:0011.1[facility] GqcpvouWIGXMTCTIA4146-44-10 09:10:00 4.8[facility] PdefnlsFDHAXDIJLI4780-52-35 09:10:0035.0[facility]annHEMATOLOGY 2015-04-21 09:10:0085[facility] BnijiagFQQZDLMPSV0749-15-68 09:10:00 Test Item Value Reference Range Interpretation Comments MCH (test code = MCH) 28.3 pg 27.0-31.0 [facility] SltdjslPXWRNXYDGS7202-18-04 09:10:0031.9[facility]annHEMATOLOGY 2015-04-21 09:10:0017.7[facility] QahipdyQYZJLZZCSU8832-25-37 09:10:0010.2[facility] MtzbtgtQPFQUOYIQX5779-24-96 09:10:0029.8[facility] ZylsyziXBJVZLHABT8672-23-89 09:10:005.3[facility] QxbvnvjCQEAYEJLRK5193-39-49 09:10:003.2[facility] LFLZQDHPUX0461-03-33 09:10:0061.4[facility] FrvwfgfKTCGGQKESF4625-01-52 09:10:00 3.0[facility] QctyfsuLSUDBOGEKL5571-96-90 09:10:001.4[facility]annHEMATOLOGY 2015-04-21 09:10:000.3[facility] MpckyjtDRGSOJWGOY3252-96-13 09:10:000.0[facility] FgaoyrrUSRURPMWEK3009-72-05 09:10:000.3[facility] WeuudemEBURBKVEIX3214-23-89 09:10:000.2[facility] RorpnvwWUUETM3383-50-87 09:10:002.04[facility] HermannLIPIDS 2015-04-21 09:10:0014[facility] WkrxbckZPSZYI8917-97-98 09:10:0033[facility] WOHGKV8415-63-03 09:10:0092[facility] TwqdsktCBYAZO3405-74-39 09:10:0045[facility] ZjyctnoNXZTIG2688-82-81 09:10:0070[facility]annSPECIAL IUHTNJHOK3154-87-73 09:10:005.7[facility]annCARDIAC MNZPUJA1944-99-50 22:04:0066[facility] CHEM PDJTP1901-56-22 22:04:0038[facility] HermannCHEM PDFKS4510-43-72 22:04:0020 [facility]annCHEM KMVGI2125-37-67 22:04:30396Ovmfrffa HermannCHEM PANEL 2015-02-02 22:04:0016[facility]annCHEM XJGFN1877-12-98 22:04:000.7[facility]annCHEM MLTAO3986-40-18 22:04:003.4[facility]annCHEM RPSKM2307-26-28 22:04:79052Zoslzbwf HermannCHEM AXMXD9122-10-01 22:04:003.4[facility]annCHEM ZQJDH5313-23-94 22:04:008.3[facility]annCHEM LCIYY7874-52-51 22:04:0025 [facility]annCHEM VNYVL3799-39-94 22:04:008.7[facility]annCHEM PANEL 2015-02-02 22:04:0013[facility]annCHEM FCOVO2011-45-11 22:04:70403Hrtksnqq HermannCHEM SMWPI0039-52-94 22:04:001.9[facility]annCHEM CRBVX0631-82-34 22:04:15026Hvybpjzp HermannCHEM MBDTE3452-38-69 22:04:000.7[facility] HermannCHEM IVPAA1710-85-70 22:04:007[facility]annCHEM IPIUM3592-69-87 22:04:004.9 [facility]annCHEM PHTMP7370-89-52 22:04:0010.4[facility]annHEMATOLOGY 2015-02-02 22:04:0016.8[facility] WtqsgwdAHYYBKNOPA3424-27-46 22:04:13507Pxklfpkk GhrvsfsUENXZCEOUF9993-82-18 22:04:008.2[facility] RjmmramMFHSWSFGYK8027-99-50 22:04:005.1[facility] NcwnsheBPDXESQLCW5166-04-36 22:04:0011.3[facility] ILMFSSHBYI2678-11-44 22:04:0036.3[facility] EaxpybvRDHOJOEEUJ0843-38-28 22:04:00 31.2[facility] BbvrugaYHCRKBIHII6145-94-05 22:04:004.04[facility]annHEMATOLOGY 2015-02-02 22:04:0089.8[facility] HjovbhfRRLKYEPWWC9154-02-24 22:04:00 Test Item Value Reference Range Interpretation Comments MCH (test code = MCH) 28.0 pg 27.0-31.0 [facility] XlfqaltJWXHFBZXWX5234-36-37 22:04:003.3[facility] HermannHEMATOLOGY 2015-02-02 22:04:000.6[facility] ZptsgczFXBYEUEDWP7444-71-59 22:04:000.4[facility] JxtdrnpCIYBHQKASB3934-77-38 22:04:000.0[facility] ZuvilmeVNMKMKDWTV6686-68-63 22:04:0065.9[facility] KshmucyQFNCXISKQR1700-74-84 22:04:003.3[facility] EFSYLWKXCJ3390-32-42 22:04:007.0[facility] NhycpvfKVCPGDAHMD2534-52-42 22:04:001.2 [facility] DkivnsmWHHTTGIOVV5060-31-24 22:04:000.2[facility]annHEMATOLOGY 2015-02-02 22:04:0023.2[facility] HermannCARDIAC RLJQRPJ9452-52-75 03:14:82362 [facility] SegvxswBGMJLRKDSW5826-62-54 03:14:001.01[facility]annHEMATOLOGY 2014-07-07 03:14:00 Test Item Value Reference Range Interpretation Comments PTT (test code = PTT) 27.2 s 22.9-35.8 [facility] JsxlfnhGJDSRWSLBE2925-47-75 03:14:00 Test Item Value Reference Range Interpretation Comments PT (test code = PT) 13.3 s 12.0-14.7 [facility]annCARDIAC YPWPDGR4090-33-91 02:57:000.8[facility]annCARDIAC GUJRXHC8431-62-85 02:57:30497Zivpiite HermannCARDIAC KFXSPKE1686-09-24 02:57:00 1.0[facility]annCARDIAC XTPHBFL8594-70-79 02:57:000.28[facility]annCHEM CWEFN4474-66-37 02:57:0034[facility]annCHEM DRHPB6377-21-70 02:57:83898 [facility]annCHEM PLBTR6862-75-45 02:57:0030[facility]annCHEM PANEL 2014-07-07 02:57:0077[facility]annCHEM IYJOS5153-87-38 02:57:003.7[facility] HermannCHEM NHXYP0267-20-00 02:57:0018[facility]annCHEM EUECM7469-17-16 02:57:0018[facility]annCHEM UIAAP2445-14-57 02:57:008.5[facility]annCHEM GQANT2688-73-93 02:57:008.0[facility] HermannCHEM EAJJZ6588-61-48 02:57:0010.1 [facility]annCHEM YHFIS7432-20-06 02:57:000.4[facility]annCHEM PANEL 2014-07-07 02:57:004.3[facility]annCHEM ESFXX1266-91-41 02:57:0021[facility]annCHEM WTWPP4592-32-76 02:57:000.9[facility]annCHEM HDJEQ3470-93-87 02:57:82790Qewnwxzz HermannCHEM QPXQS7882-07-77 02:57:0044[facility] HermannCHEM ROGEE2010-29-63 02:57:01114Tabhhwlh HermannCHEM QIVSO8031-02-13 02:57:002.1 [facility]annCHEM AXCRU4293-45-17 02:57:004.1[facility]annHEMATOLOGY 2014-07-07 02:42:000.4[facility] XjaibedUXCKMTGBEE6809-53-26 02:42:000.2[facility] VynwwneUBQEOGCSGF3035-15-44 02:42:000.0[facility] ZnyqsfpSMLOYDWWHR6165-35-56 02:42:006.4[facility] MbiwnzpYKZLOPAPSC4991-20-11 02:42:002.6[facility] QCMJUCSKGA0099-61-42 02:42:000.3[facility] ZarynsvQUUTMDHPEY6749-60-05 02:42:004.5 [facility] TycffepOZTJBLCCEO9752-58-05 02:42:001.5[facility] HermannHEMATOLOGY 2014-07-07 02:42:0068.3[facility] LvjevdgZFLZBAUEES6756-12-73 02:42:0022.4[facility] EkhrxmtQYZMYJLAAU2370-75-62 02:42:0033.7[facility] VfnmukuTXNTQSAWMN6457-20-47 02:42:0035.8[facility] HfnwewnBWBJWTOIDS3985-08-91 02:42:0080.3[facility] VQSEMIAERL0483-05-45 02:42:00 Test Item Value Reference Range Interpretation Comments MCH (test code = MCH) 28.7 pg 27.0-31.0 [facility] ItevhmoHUJFFCAEAR5734-53-10 02:42:35025Ixpgxrlk HermannHEMATOLOGY 2014-07-07 02:42:0010.1[facility] WuwfxosDLVCRAMFVJ9975-57-52 02:42:0018.6[facility] KpkflxdCBFJQFOMDS2608-15-57 02:42:004.19[facility] HtgriqqVONDCXAUEJ5794-46-14 02:42:0012.0[facility] PdwrhndWNGOMZOYML6153-73-28 02:42:006.5[facility] HermannCHEM XPHCO8479-81-00 12:54:0034[facility] HermannCHEM ONEOI1188-33-44 12:54:0024 [facility]annCHEM PITLT4283-67-31 12:54:86777Cosofdxm HermannCHEM PANEL 2014-04-02 12:54:004.2[facility] HermannCHEM PXAEE9533-27-54 12:54:001.24[facility]annCHEM JRXSN5289-15-73 12:54:23782Ithdmhoa HermannCHEM YKNRC0350-74-42 12:54:002.1[facility] HermannCHEM NLXBF6510-20-30 12:54:0011.2[facility] HermannCHEM IMCKQ7345-24-16 12:54:0028[facility]annCHEM BSLBP1115-15-42 12:54:66544 [facility]annCHEM RCLKG3573-49-22 12:54:0021.0[facility] HermannCHEM PANEL 2014-04-02 12:54:0033.0[facility]annBLOOD BANK AOXXAND3276-34-32 17:25:00 Negative (03/30/14 11:25 AM)[facility]annBL[facility]OD BANK WJLYLWT2940-05-58 17:25:00Product available (03/30/14 11:25 AM)[facility] HermannELECTROLYTES 2014-03-30 17:25:0010.7[facility] MjhcpetAPFOMVUGHXVX5998-15-80 17:25:0034[facility] FycwjoaRBFWLYHJUGPV8719-26-77 17:25:68826Isbakygx GmjzhijSROZPGKBKKGI1591-45-99 17:25:002.1[facility] WecmzlcFSEGVKTEWMLS4396-35-66 17:25:0034[facility] ARSZUIWRDLNW9265-17-79 17:25:003.7[facility] BohljfiOGRGTAHJSUDW5930-47-82 17:25:0030[facility] GjfjtlqAYWOWIKSCIVS5760-60-53 17:25:39159Rbznomta Noel XOOGOMNKMDVF1229-89-14 17:25:008.6[facility] RsyykgcAKJQDWXHRDKQ2889-41-71 17:25:0088[facility] FlvshmpXSXAYYXGUM5471-69-68 17:25:00 Test Item Value Reference Range Interpretation Comments PTT (test code = PTT) 27.7 s 22.9-35.8 [facility] ObvlunrKBHIOHFDBD5214-07-52 17:25:003.57[facility]annHEMATOLOGY 2014-03-30 17:25:004.9[facility] XkhbujrENPHRACJGG1387-73-79 17:25:0030.9[facility] XeclssuWPERMUDGJX9265-34-78 17:25:0010.1[facility] KhotzxrJLICRPVCHQ3696-08-47 17:25:00 Test Item Value Reference Range Interpretation Comments MCH (test code = MCH) 28.2 pg 27.0-31.0 [facility] ApomvsgQREDJBDVXW1410-39-98 17:25:0086.5[facility] HermannHEMATOLOGY 2014-03-30 17:25:0032.6[facility] GjhkoeyTTYBDPCXKM8041-25-92 17:25:0018.3[facility] UhlntvtQPRQYETSZW3491-19-60 17:25:009.1[facility] DdbaxgeBKLIBJNLQH7006-21-92 17:25:41904Brppfbhe FabxogbYNMQLDCGRZ5854-78-33 17:25:003.5[facility] GTLERLWTIW3644-31-91 17:25:005.1[facility] MpgxhekGSGTVIGOLM5173-61-58 17:25:001.2 [facility] OvpklohZOPTXRUJLO9117-96-35 17:25:003.3[facility] HermannHEMATOLOGY 2014-03-30 17:25:000.2[facility] QbofdfrFKPWQUYASG5791-32-13 17:25:0023.7[facility] JhtufiqWYCZDINBEJ0614-39-32 17:25:0067.4[facility] KkepshxMSAIGODOMF8989-22-71 17:25:000.3[facility] YfufsclMZNBMLYVNO3785-13-23 17:25:000.3[facility] NIZOWIEMMG0577-22-54 17:25:000.0[facility] XioebjoIZCZNGWKFD3413-20-00 17:25:00 Normal (03/30/14 11:25 AM)[facility] AucwubiOZAHSVRMAR4209-79-66 17:25:00Normal (03/30/14 11:25 AM)[facility] IehjubeETIIKANXJL5932-26-74 17:25:001.08[facility] HghbishITLHVGRCJK5163-51-45 17:25:00 Test Item Value Reference Range Interpretation Comments PT (test code = PT) 14.1 s 12.0-14.7 [facility] PavmsqbVSGVAJSKKUCQ4079-29-85 10:15:0010.4[facility] HermannELECTROLYTES 2014-03-05 10:15:0038[facility] XcpzpffTQXKBJMBGATT8529-31-16 10:15:0031[facility] IghpdrpJBFEXLJSMTQQ9261-43-00 10:15:008.4[facility] TbdghteCISKQEPJLDHD5557-11-77 10:15:91548Bkgxopzm WuicjuhLUFVATPIKEWE6216-97-55 10:15:003.4[facility] WWREMUDKMKRM5584-75-16 10:15:09570Yenmxqwy KcddbuvWCBENDGNPZTH1831-25-62 10:15:0013[facility] CtbuzfzVKONOCJHDDTV7431-10-14 10:15:001.9[facility] QFQMLNGPYPBI9571-10-82 10:15:0080[facility] YoewykkRZQPXBHVIP6696-06-64 10:15:00 6.9[facility] IefrioePVVOQTIVFH3647-34-48 10:15:000.8[facility] HermannHEMATOLOGY 2014-03-05 10:15:003.8[facility] GghkkcoXDIXELICBQ2242-92-40 10:15:000.4[facility] PnpwsrvJBPOPTYOYA2374-89-92 10:15:000.2[facility] VjdwvllDFFDPWNAYF8017-93-06 10:15:0023.4[facility] TmfyscxKRHBKKBCBL4419-58-44 10:15:0065.1[facility] JMXKWQCAQL6199-30-56 10:15:001.3[facility] MmtjetgYORXLDNWAE1891-80-30 10:15:003.7 [facility] FkscmvhZBQKGSYXWB7624-48-02 10:15:0032.3[facility]annHEMATOLOGY 2014-03-05 10:15:0016.7[facility] YoshsvrAZZYBAIZAY7824-28-45 10:15:0093[facility] MvcdybxHBOGXEBSES6956-71-03 10:15:009.2[facility] LkcfcqhAPCBLNCRAY6977-41-54 10:15:00 Test Item Value Reference Range Interpretation Comments MCH (test code = MCH) 29.2 pg 27.0-31.0 [facility] KmymbuiOEZGIVBPQT4803-63-02 10:15:005.7[facility]annHEMATOLOGY 2014-03-05 10:15:0090.6[facility] VwcswlnAEPZQSMELI2413-68-32 10:15:0034.5[facility] GgmwwdvRASNQXOVLE5939-16-59 10:15:003.81[facility] BhgpqzgHBKEOXMPZT6590-36-61 10:15:0011.1[facility] OhxlocsESTQOTAYUD1187-29-94 19:39:00<0.2[facility] THLTLRXOLL3690-56-08 19:39:00<0.2[facility] EmxaiqrDEGTJJBIKA8737-86-83 19:39:00Negative (03/04/14 2:39 PM)[facility] LfgiasaIDNRMLNAEX3127-89-91 19:39:00 <0.2[facility] NquxepyTTFOBJWMBQ9199-79-00 19:39:00<0.2[facility] TZKIBZVTAO6072-18-07 19:39:001:40 *ABN*(03/04/14 2:39 PM)[facility] XDVECVNTBS4005-94-03 19:39:00<10[facility] NfdmbinKWQTLPDIYC7544-55-82 19:39:00 Positive *ABN*(03/04/14 2:39 PM)[facility] HermannSPECIAL DOGGUTIRU8517-64-08 19:39:0019[facility] HermannTHYROID MGMDI1713-22-37 19:39:004.580[facility] CHEM XKFJX8178-98-61 10:10:72657Wrrtlekp HermannCHEM DGBPC9885-50-89 10:10:003.5 [facility]annCHEM LVWKJ5951-64-74 10:10:10549Ttpfgrhw HermannCHEM PANEL 2014-03-04 10:10:0029[facility] HermannCHEM DZKJS2792-00-42 10:10:001.7[facility] HermannCHEM ZFAOM9288-75-35 10:10:0012[facility] HermannCHEM NJHTP0941-62-09 10:10:0084[facility] HermannCHEM MMSBU0839-45-93 10:10:0010.5[facility] REARKGHXUQ6023-35-92 10:10:001.4[facility] GadjfncSYHSVNRZTW5734-30-56 10:10:004.3 [facility] LmcotgaMZFQPFMARZ0420-35-58 10:10:000.7[facility] HermannHEMATOLOGY 2014-03-04 10:10:004.0[facility] LgehkhnIIQCJKDPHD0727-87-77 10:10:000.3[facility] VnllzrlTUAWSQBPLL8322-72-63 10:10:000.4[facility] BshfngdHRDVMBVXQC4437-73-14 10:10:005.7[facility] PfhhajjOKZXJSKJEY2239-83-93 10:10:0022.2[facility] ZYUETZHAMW1091-59-56 10:10:0067.4[facility] BfybvbfUWIYQEHLHM3925-47-45 10:10:00 10.4[facility] BbfirslHUMDNXJJAL8484-73-62 10:10:003.50[facility]annHEMATOLOGY 2014-03-04 10:10:006.3[facility] YhncjavSYMEWESOEX5452-97-68 10:10:0032.9[facility] WknanpdHGXANMWIHL3959-32-46 10:10:0083[facility] XvplsenCJFJWDMIDZ5305-52-57 10:10:0016.4[facility] IuxzumoXQHKCYFSXM7238-89-04 10:10:008.8[facility] JFBVIIIVZI1947-06-90 10:10:00 Test Item Value Reference Range Interpretation Comments MCH (test code = MCH) 29.5 pg 27.0-31.0 [facility] DlswlgcTSKPLCJUGO8103-71-43 10:10:0089.7[facility] HermannHEMATOLOGY 2014-03-04 10:10:0031.4[facility] HermannCHEM ZVJJS1539-60-13 10:10:0044[facility] HermannCHEM WXCLX8076-37-36 10:10:008.3[facility] HermannCHEM DEKCD6598-39-33 11:05:0044[facility] HermannCHEM ROIDE2998-47-57 11:05:0030[facility] HermannCHEM QRPHL6124-22-28 11:05:008.5[facility] HermannCHEM ARHLE3120-49-69 11:05:001.7 [facility] HermannCHEM VYDWR9295-55-86 11:05:0013[facility] HermannCHEM PANEL 2014-03-03 11:05:0090[facility] HermannCHEM DCRCD1451-10-48 11:05:78025Hdpylswj HermannCHEM DVZBI0960-96-05 11:05:003.[facility] HermannCHEM AAEZR2961-97-52 11:05:42479Xkgdibzm HermannCHEM UCKCZ7406-25-83 11:05:0010.6[facility] RUMDTXAYTQ3459-70-75 11:05:009.3[facility] DwvejdvKCQNGTVJFC2425-11-56 11:05:00 3.54[facility] LydnaxnLVATRZXDNS0174-26-53 11:05:006.2[facility] HermannHEMATOLOGY 2014-03-03 11:05:0010.4[facility] AytalkjMPFLQLGQNA2457-31-20 11:05:0032.0[facility] NocponfYVUIWBHJMF9349-62-89 11:05:0090.5[facility] HkdpmkgBBJBBPJVUO8262-92-69 11:05:00 Test Item Value Reference Range Interpretation Comments MCH (test code = MCH) 29.4 pg 27.0-31.0 [facility] YhvqgguBHDXPYKOBQ1477-54-57 11:05:0017.2[facility] HermannHEMATOLOGY 2014-03-03 11:05:0032.5[facility] JvrxfwoCZBBQHDVRM4832-79-39 11:05:03516Mvrbcjst BprhiqeZOZLWPDTGS6375-66-22 11:05:000.0[facility] PclqxbnYPWFDJXQTE5868-66-71 11:05:000.3[facility] JonqnfdPUZSQGWXQT0584-11-65 11:05:001.3[facility] SIBBGAOMXF4114-92-39 11:05:004.2[facility] JunlxfeTFGDNEYBPZ0042-95-58 11:05:000.3 [facility] EvhqdilUARWXCPAXW5486-95-07 11:05:000.[facility]annHEMATOLOGY 2014-03-03 11:05:005.4[facility] ZtsbyysBCWJPQBQIN2287-83-94 11:05:005.2[facility] VkkylzhJNICRGPGYJ1019-70-55 11:05:0020.6[facility] LuzsjjqZLOXOXPFWR7521-78-59 11:05:0068.5[facility] EfwlhtnOPHSGTYOIB8603-15-54 12:19:000.0[facility] ANEMIA IPXAH3410-17-72 10:35:01296Fvyoeris HermannANEMIA ZRWIE3668-99-05 10:35:0044[facility] HermannANEMIA JTHHB3540-74-32 10:35:32519Olgexgku [place] ANEMIA IMHAP5527-45-61 10:35:0017[facility] HermannANEMIA SFUHC1011-74-43 10:35:00 89[facility] HermannCARDIAC RERAWAD5171-16-00 10:35:07175Axwopkoj HermannCHEM SCMON6303-90-38 10:35:002.0[facility] HermannCHEM XSDCO4444-06-36 10:10:001.7 [facility] BmppdwaAHZOYBAVWK2011-03-27 10:10:000.0[facility] HermannCHEM PANEL 2014-02-27 09:30:001.4[facility] PxqywupNKINMF9047-92-76 09:30:001.89[facility] JummgfyZAHZNE9481-85-45 09:30:0023[facility] VoimexrBLRJJH3917-52-81 09:30:0037 [facility] ZuyqxqnZJZVEX7659-09-73 09:30:0070[facility] XgihploVKXDSQ5852-79-15 09:30:0050[facility] WgvzfhjXNAVER8734-98-21 09:30:0010[facility] HermannVIRAL - EXQAIDWT7077-09-31 23:00:46Negative 12(02/26/14 6:00 PM)[facility] HermannVIRAL - APOOOBSE3400-75-44 23:00:46Negative (02/26/14 6:00 PM)[facility] HermannBACTERIAL - UAUZPEXT7947-65-28 22:25:00Negative (02/26/14 5:25 PM)[facility] HermannCARDIAC AZOXEPR5187-57-03 18:30:000.46[facility]annCARD[facility]AC XPNHSQY1048-34-37 18:30:00 74[facility]AC QZFOLOA2460-46-62 08:15:000.37[facility]AC WTSIUOU6124-01-45 08:15:79135Zummaaja HermannCARDIAC RZAPYSG6656-40-49 08:15:00 1.6[facility]AC PTLONKT7093-76-49 08:15:001.6[facility]annCHEM ICIYC6052-96-80 08:15:000.9[facility]annCHEM LDFOP1692-70-37 08:15:009 [facility]annCHEM WDHCR4359-45-16 08:15:003.7[facility]annCHEM PANEL 2014-02-26 08:15:0013[facility]annCHEM DXVKI6505-68-74 08:15:0020[facility]annCHEM AZIIU5567-19-18 08:15:0070[facility]annCHEM QVACY0521-22-82 08:15:000.8[facility]annCHEM MCCVL0579-88-01 08:15:006.9[facility]annCHEM KLEYE2250-56-13 08:15:003.2[facility]annCARDIAC LWNSXOC4715-66-90 02:31:80269 [facility] NFPOC9768-28-62 02:10:00None Seen (02/25/14 9:10 PM) [facility] WSPUO3675-37-76 02:10:00None Seen (02/25/14 9:10 PM) [facility] LFMSL7858-53-92 02:10:00Yellow *NA*(02/25/14 9:10 PM) [facility] YTCSF1575-47-28 02:10:00Negative (02/25/14 9:10 PM) [facility] AAQQB8176-23-76 02:10:00Negative (02/25/14 9:10 PM) [facility] SRAYK3384-53-60 02:10:00Negative (02/25/14 9:10 PM) [facility] SNBBC0252-22-52 02:10:00Negative *NA*(02/25/14 9:10 PM)[facility] NGSED8167-70-96 02:10:00Negative *NA*(02/25/14 9:10 PM)[facility] ISQAL1536-83-07 02:10:00Small *ABN*(02/25/14 9:10 PM)[facility] XSRUM3429-47-91 02:10:000.2[facility] ABVCZ2632-57-95 02:10:00Clear (02/25/14 9:10 PM)[facility] MOSET5976-43-34 02:10:00 Test Item Value Reference Range Interpretation Comments UA Spec Grav (test code = UA Spec 1.015 1 Grav) [facility] TGVSZ5605-96-98 02:10:00 Test Item Value Reference Range Interpretation Comments UA pH (test code = UA pH) 5.5 1 5.0-8.0 [facility] OVLYS8601-64-29 02:10:00Negative (02/25/14 9:10 PM) [facility] PSBCTAM2565-98-72 00:50:001.9[facility]AC SMZRMKN5723-97-26 00:50:000.38[facility]annC[facility]AC RLJVMRA8282-31-17 00:50:00 100[facility]annC[facility]IAC KIBBGET8544-32-53 00:50:001.9[facility]annCHEM HGUZM0847-61-76 00:50:007.4[facility]annCHEM RNZRQ2630-78-09 00:50:000.6 [facility]annCHE[facility] NZYHQ8883-76-32 00:50:0077[facility]annCHEM PANEL 2014-02-26 00:50:0013[facility]annCHEM ZHLSI0750-00-56 00:50:0015[facility]annCHEM NCXRD5439-85-86 00:50:003.2[facility]annCHEM CJEBM4850-29-59 00:50:004.2[facility]annCHEM KZQGR6593-42-86 00:50:000.8[facility]annCHEM MVTBR8461-39-91 00:50:009[facility] PaubmxpHZLTUKQUFF8410-05-55 00:50:000.81 [facility] VejjulxUTUILASWWF9698-47-93 00:50:00 Test Item Value Reference Range Interpretation Comments PTT (test code = PTT) 42.2 s 22.9-35.8 [facility] GttvxokIVMPZBAHXR6601-93-64 00:50:001.36[facility]annHEMATOLOGY 2014-02-26 00:50:00 Test Item Value Reference Range Interpretation Comments PT (test code = PT) 16.9 s 12.0-14.7 [facility]annCHEM LNHVB5893-33-86 10:30:0038[facility]annCHEM PANEL 2014-01-28 10:30:008.6[facility]annCHEM EULXF5193-56-66 10:30:0013.1[facility]annCHEM DBQNQ2322-77-56 10:30:0028[facility]annCHEM JXLFP8636-73-45 10:30:0024[facility]annCHEM RGFAT6133-89-45 10:30:0099[facility]annCHEM BVXLX4912-08-50 10:30:97449Bfcvykut HermannCHEM REATE3005-76-25 10:30:004.1 [facility]annCHEM SEVVF2054-51-36 10:30:03516Zrarsgnd HermannCHEM PANEL 2014-01-28 10:30:001.7[facility]annCHEM UBQXW9412-13-69 10:30:002.1[facility]annCHEM OAJGE9189-95-36 10:30:002.6[facility] CldzdvcYZTMKOGCMS2709-29-84 10:30:005.0[facility] KanimozWAZPFLUXRF1052-47-03 10:30:000.4[facility] KUEQZEXUWI6681-11-01 10:30:000.1[facility] VxknjifKWMLIBGNNH3312-04-06 10:30:000.5 [facility] GxegxttZTXFLVNMFL6869-20-42 10:30:001.8[facility]annHEMATOLOGY 2014-01-28 10:30:0024.7[facility] KbxxveaHMXUQEGUXJ8868-12-07 10:30:0066.4[facility] StpwmteWTMORWLVZC9909-56-74 10:30:001.7[facility] UrumccvIKQJKGTEKN6221-10-81 10:30:006.8[facility] DtswdepLHIHENYHOC3725-69-46 10:30:0010.3[facility] QJCHKBAUXQ1381-24-01 10:30:0079[facility] EjwstkxJJEDLBUCDH6780-76-94 10:30:0011.3 [facility] DckjrlbLCQENQMPHD2745-74-33 10:30:007.5[facility]annHEMATOLOGY 2014-01-28 10:30:003.84[facility] MdplrqlJJUBJKACCR6767-97-06 10:30:0014.1[facility] RewizayBNFAJLPPJG3894-09-43 10:30:0034.2[facility] JfbtqfnUNTLOQOWSI1862-80-65 10:30:0089.0[facility] KtgtofrUORJRZUXDD1393-62-03 10:30:00 Test Item Value Reference Range Interpretation Comments MCH (test code = MCH) 29.3 pg 27.0-31.0 [facility] ZhjwcgnJOBVSQMYHS2452-69-27 10:30:0032.9[facility] HermannCHEM PANEL 2014-01-27 19:10:002.0[facility]annCHEM KRNFQ1594-25-49 19:10:0035[facility]annCHEM ZJLJD4984-99-22 19:10:008.3[facility] HermannCHEM ADRYN7404-35-21 19:10:0029[facility]annCHEM RYVGI9233-72-38 19:10:008.3[facility] HermannCHEM CPVXZ1111-47-05 19:10:99555Oogyuxym HermannCHEM WXXQZ7200-97-91 19:10:004.3 [facility]annCHEM SRKFJ4721-65-83 19:10:43132Uvitbekw HermannCHEM PANEL 2014-01-27 19:10:0026[facility] HermannCHEM ACQQQ1832-20-91 19:10:001.8[facility] HermannCHEM JJQGI3614-28-76 19:10:41167Cvifnenj HermannCHEM AYXFP0778-94-76 10:00:001.5[facility] QlgrtpkPTCIKRKVIYCB2352-66-30 10:00:0011.4[facility] EUSIBCJHFYRL1987-98-25 10:00:0035[facility] QdqpltxKSDKOUODYCFC9990-15-53 10:00:00 104[facility] DaabecgALVEHGCIIWPO3838-41-67 10:00:004.4[facility] YNVOIFUTIUPA8398-62-61 10:00:06801Dfelryfp GeqlpogCREVRAFPQMXN3678-59-31 10:00:001.8[facility] WvnggmqRLPIQLEVPZOD2145-75-71 10:00:008.6[facility] HQNACVRPXFEF0095-44-41 10:00:0028[facility] CopsesuTNHLLMQHEUKR9278-64-32 10:00:00 26[facility] TfsgofvDCJXHMJJDSBN5326-57-02 10:00:80977Aicexlln HermannHEMATOLOGY 2014-01-27 10:00:00 Test Item Value Reference Range Interpretation Comments MCH (test code = MCH) 28.8 pg 27.0-31.0 [facility] UxujnpbKNKUVJSQKS7874-59-33 10:00:0032.0[facility]annHEMATOLOGY 2014-01-27 10:00:0014.2[facility] VqyiwznKPDAXUOZDM2604-27-34 10:00:009.8[facility] DcmypapEIQAKSLOHN5628-46-12 10:00:0071[facility] CtovaoaGYXDFNUNPF7779-54-00 10:00:004.06[facility] RblyefcCVCTQTJOBC8521-08-95 10:00:006.2[facility] CWBKYCPFVJ1189-60-47 10:00:0036.5[facility] FggtokcJHLPUIXODJ4500-32-50 10:00:00 90.0[facility] FttgscoVAXQYUAIAW9942-75-72 10:00:0011.7[facility] HermannHEMATOLOGY 2014-01-27 10:00:001.6[facility] IcisystHOCXZIGZLH7926-25-42 10:00:004.2[facility] EnssbhoLQRJQMOYFA5032-23-08 10:00:000.3[facility] YllysslNZBLQIHRSW9824-97-52 10:00:000.1[facility] JheogkfLKHRYPJKJG0226-07-27 10:00:000.2[facility] TNKAUHHPSO2899-22-50 10:00:000.0[facility] AqqpdzmCRIUAHULJC7574-04-07 10:00:00 26.0[facility] VeiwnmjIEZNUAGMCX3579-86-69 10:00:0068.2[facility] HermannHEMATOLOGY 2014-01-27 10:00:001.5[facility] PsexxrnHWHCHKHLLA7716-06-74 10:00:004.0[facility] SutaduhIRWAIO0024-54-76 10:00:003.36[facility] ZrlfmplOYWBTP1520-54-02 10:00:0023 [facility] IrbicejXUYCEH7447-64-75 10:00:0069[facility] IpfrlkrDFGWPF4346-51-34 10:00:0039[facility] IvssetfUHRMDM1353-31-95 10:00:53955Uczvcpcb HermannLIPIDS 2014-01-27 10:00:06035Kqcczxzp MihahcwLIFZEVKAFA5456-41-80 10:00:001.2[facility]annURINE AND SLMJR0152-24-61 14:15:00<=1.0[facility]annUR[facility] AND STOOL 2014-01-26 14:15:00<1[facility] AND EMGZR7752-68-09 14:15:001.005 [facility] UUEER6942-17-09 14:15:00Clear (01/26/14 9:15 AM) [facility] FKPYI7563-66-49 14:15:00Colorless *NA*(01/26/14 9:15 AM)[facility] ZOIRJ7922-74-35 14:15:007.0[facility] RTSFL8020-27-42 14:15:00Negative (01/26/14 9:15 AM)[facility] XRGLY3821-89-90 14:15:00Negative (01/26/14 9:15 AM)[facility] GWBDM2642-29-79 14:15:00Negative *NA*(01/26/14 9:15 AM)[facility] QOANA2929-87-12 14:15:00Negative (01/26/14 9:15 AM)[facility] HermannANEMIA STUDY 2014-01-26 14:00:0010.9[facility] HermannANEMIA BCWIW6116-56-40 14:00:47786 [facility]annCARDIAC MCAZASC2725-53-64 14:00:34743Hbnmaxse HermannCARDIAC BUSVNEU5474-63-98 14:00:000.28[facility] HermannCARDIAC TGVRTQD2165-95-61 14:00:00 88[facility] HermannCARDIAC OUBWXIK9662-09-27 14:00:003.0[facility] HermannCARDIAC JVDKYEY3029-64-97 14:00:002.6[facility] HermannCHEM ATAPR9948-68-24 14:00:002.6 [facility]annCHEM CHIUB4329-50-82 14:00:000.5[facility] HermannCHEM PANEL 2014-01-26 14:00:000.9[facility] HermannCHEM WFCEY2960-47-29 14:00:004.1[facility] HermannCHEM WMBEZ9165-11-55 14:00:000.7[facility] HermannCHEM SFDTK8179-64-19 14:00:000.2[facility] HermannCHEM CDPKQ9863-87-65 14:00:0015[facility] HermannCHEM GQRXD8296-64-34 14:00:0078[facility] HermannCHEM DLICE7867-63-78 14:00:007.6 [facility]annCHEM QGOLM3451-67-35 14:00:003.5[facility] HermannCHEM PANEL 2014-01-26 14:00:0017[facility] FljebbmAOHFHWQCVQ0569-74-12 14:00:0084[facility] YzuosimXAAZNRRLHP4100-07-45 14:00:009.8[facility] IrddtwySYSSKBEKZB9962-41-53 14:00:006.6[facility] RuxcaiiROWDVZWXWL0857-45-69 14:00:00 Test Item Value Reference Range Interpretation Comments MCH (test code = MCH) 29.2 pg 27.0-31.0 [facility] BsswfhxDIOPXLRBWZ2279-68-66 14:00:0032.7[facility] HermannHEMATOLOGY 2014-01-26 14:00:0014.3[facility] CmzphdbCPUTNPSMEW2144-94-96 14:00:0089.2[facility] EopevolSGXWZXWSLX2760-93-94 14:00:0013.2[facility] HvqltozKSAATQEYLJ5114-40-07 14:00:0040.4[facility] JulklbmSCHTJRHVQL6080-04-25 14:00:004.53[facility] OKOFFFXHDX4605-00-68 14:00:001.23[facility] TzefywmFIARRXFRYZ6647-12-15 14:00:00 Test Item Value Reference Range Interpretation Comments PT (test code = PT) 15.6 s 12.0-14.7 [facility] HhllvpaBDNWYWZKUA4287-58-48 14:00:001.6[facility] HermannHEMATOLOGY 2014-01-26 14:00:004.6[facility] ZcednmnENRHFAAJIX8825-13-34 14:00:004.4[facility] NmiolzfCMGXHDSEOC6716-65-22 14:00:000.7[facility] VgknjpdYHWCPRRDZA6383-83-24 14:00:000.1[facility] FxuxmgjYGENAPEQKS5415-92-27 14:00:001.8[facility] SXWZHHXHIG6769-71-69 14:00:000.3[facility] JcwdgcuYPJGQFSOCN8470-81-13 14:00:00 27.2[facility] KzitfarVXUMVMVPTT8029-02-30 14:00:0065.9[facility] HermannTHYROID KDODR0365-57-02 14:00:002.320[facility] SlzwkbaFHQCTZUCW6821-56-12 10:30:27088 [facility] MfblefiWCOLWTUZO9213-33-34 10:30:0084[facility] HermannCHEMISTRY 2012-02-27 10:30:003.8[facility] ZijsfdcFCUZFBHAH7640-17-57 10:30:58987Kbbomtkr GlmxqdeHONSYIOON7532-22-06 10:30:65695Dlvbqlml UgvpkgdESXEVOTLE8245-20-31 10:30:001.0[facility] EmjmauiPWNVUTYUS8536-47-99 10:30:0017[facility] OXEPUHIJS7955-24-79 10:30:0084[facility] TvuwjqyVYCBPSDDR2653-82-89 10:30:007.9 [facility] NvwdfsgVNEUNTJEN3241-34-76 10:30:0028[facility] HermannCHEMISTRY 2012-02-27 10:30:0015.8[facility] MahghipTNJSTTTMSD7352-60-19 10:30:008.3[facility] BmffkvlYQDJABDGZK6198-16-36 10:30:003.1[facility] OwqzznyGBQEQEHSWR0302-76-72 10:30:0044.7[facility] NivirwuFFQJYHXYTQ7093-53-26 10:30:0043.6[facility] ITCYANBRRH1317-33-28 10:30:00Normal (02/27/2012 05:30:00)[facility] IATUZGSYNA0022-72-98 10:30:000.0[facility] TqanjnePOCQZKOWSV2655-68-44 10:30:000.1 [facility] NejxklyGWJPWVUTPK0291-26-86 10:30:002.0[facility] HermannHEMATOLOGY 2012-02-27 10:30:000.4[facility] RhwkbjsQXKHDBZLFN6965-02-57 10:30:000.3[facility] RyuwwpwSRKKFMDHKY6050-91-46 10:30:002.0[facility] WrbeilaBMXIJQYAIR1031-84-32 10:30:00Slight *ABN*(02/27/2012 05:30:00)[facility] NpklkdmZPUAHYSOZU2346-78-59 10:30:009.9[facility] AmsjqvdXWQOOUWGLD1192-18-01 10:30:00 Test Item Value Reference Range Interpretation Comments MCH (test code = MCH) 31.3 pg 27.0-31.0 H [facility] BibbjttZMVMVSKEPX9265-19-33 10:30:0033.7[facility] HermannHEMATOLOGY 2012-02-27 10:30:0014.8[facility] UhesijwFXVBTHZURH1107-97-18 10:30:0034[facility] KfcnfdfZMIWRVOUJY1631-37-76 10:30:0092.9[facility] LyrhvacQZLYDKFOJA3144-22-32 10:30:004.6[facility] RsaprtqBDPRSCQSNF7236-63-48 10:30:003.40[facility] CKYFBYAPUN0777-01-01 10:30:0010.6[facility] GmsuqrkTVBRVSFOIL4313-50-96 10:30:00 31.6[facility] ZwpzcalUNDAPPBUY5520-50-15 21:40:20322Hxysvqcl HermannCHEMISTRY 2012-02-26 21:40:003.9[facility] ObqrktmMEMZVHOPM2236-50-03 21:40:0011.9[facility] JodiagoOAFKUWLGG0191-33-36 21:40:007.7[facility] HlldxnaIPLYUPDKZ9830-92-66 21:40:11508Jrlrgjqm QdxqqllRIIXSZDEH6305-61-46 21:40:0068[facility] NLCFNOLCS0088-76-05 21:40:0026[facility] PwedbzbFKQWIJEOG1497-22-06 21:40:001.2 [facility] NljbqgnOWXUFMZGI6301-87-65 21:40:43191Ajugothd HermannCHEMISTRY 2012-02-26 21:40:0099[facility] TksuzwcGDZIDAZMS9589-76-66 21:40:0031[facility] KdgyvsbGZRNFGVFO0241-99-86 13:56:46322Ftrdgjbw QjwlupbEWJZOESDC8754-38-18 13:56:000.11[facility] GtojipvYIPBDDNYQ6813-05-29 13:56:001.5[facility] ZFWAKSFPE4942-56-04 13:56:001.0[facility] IzuygiiIUOTPSWXK8008-53-12 10:00:001.3 [facility] JdqsrskQOWPYDIYN7521-23-57 10:00:003.2[facility] HermannCHEMISTRY 2012-02-26 10:00:000.8[facility] WiocfibBWQLEZATG3894-11-64 10:00:0012.5[facility] YhtwxjjFQSMQKYNL0502-22-39 10:00:0022[facility] TuczqmrFHWXWCZIR7867-07-63 10:00:005.8[facility] HxtkytrOVYKYBTUE9449-74-80 10:00:0020[facility] DLFULVUGE9878-84-55 10:00:007.8[facility] AgbcydnVDDVFJZUA7359-41-11 10:00:000.6 [facility] ZuebtczSPGLOEYXA1042-77-09 10:00:0030[facility] HermannCHEMISTRY 2012-02-26 10:00:0048[facility] YxeunvfBLPNIFNTF3979-87-18 10:00:0036[facility] TvfrtusWRODJYQAX2577-93-93 10:00:0091[facility] PsqmcvtHMZAZOUHA8398-42-94 10:00:002.6[facility] LbameyrGHLJPDYBP2646-61-93 10:00:0033[facility] MONKORVUS8410-79-77 10:00:0015[facility] WnzmbwoWJLRYDQGG8503-35-29 10:00:003.5 [facility] UqteicsHSKLONSPX3850-31-12 10:00:0099[facility] HermannCHEMISTRY 2012-02-26 10:00:001.6[facility] QdkwfddHWVZBICVG2336-69-17 10:00:99163Spjkzpyl TzbkbyvNVGNUONNW7374-13-00 10:00:005.6[facility] EyhxnhwJBQJMDJBT8451-90-85 10:00:0041[facility] CahbjopFJYCJEYMO1324-90-11 10:00:0039[facility] AMCNNCAVC1993-12-04 10:00:0092[facility] UzkiyspJTNEUXCJT1697-17-60 10:00:0098 [facility] JqhfqyfCGSVQTDDA1673-55-87 10:00:002.51[facility] HermannCHEMISTRY 2012-02-26 10:00:71008Ezygqfco VdbreyxRLIPOFNYZ0361-04-64 10:00:000.10[facility] DiyjazqFUWWVEJHL3958-33-67 10:00:001.7[facility] MfzuvmdSFNMEZLWD0343-75-68 06:15:000.4[facility] MvpnanuCXDYVVUFL8422-72-85 06:15:46017Vuvdsyzf [place] QGHEDFQPG3998-90-41 06:15:0013[facility] LqhcspsUCVQSDCSB6571-91-34 06:15:0042 [facility] ClfxihaIGSTKAXTG8589-36-90 06:15:001.95[facility] HermannCHEMISTRY 2012-02-26 06:15:0082[facility] CfuwqadCNVCXJVAZ6437-64-35 06:15:11998Crmszkiw UqeuaygAZLWANOWL3016-17-73 06:15:000.09[facility] WnisfusJZPIEYRRQ6704-52-77 06:15:001.1[facility] HermannBEDSIDE GLUCOSE XHNFUUC8020-44-08 16:28:26308Pmzqtxjn HermannBEDSIDE GLUCOSE EJLDYQH1170-62-23 11:12:13960Ymmqwsol HermannBEDSIDE GLUCOSE HAZNLSE7990-30-91 02:31:70587Qbaxzwzn QowmtrmNPCTLSRMT7864-44-61 07:08:0014.5[facility] PcdbrmoQACYGCYJI3369-16-24 07:08:33260Urrntfpe Noel DQRVNNKXV2875-63-92 07:08:001.3[facility] DhtwfjvRIJVUQLMI0386-08-89 07:08:0025 [facility] QmeedqeTPGUBERMG3931-73-78 07:08:57211Rfomtnry HermannCHEMISTRY 2011-12-07 07:08:008.7[facility] JvdxtptWOVUJDIYQ7012-87-77 07:08:0031[facility] QxybnqvDWOKABBAE3192-00-42 07:08:004.5[facility] FfechfxDMJJAMCVI3808-53-11 07:08:76342Fbhspoow PyfybrsCMNGIXIWIC2077-82-15 07:08:0013.2[facility] WKFWTPRATR6616-14-51 07:08:0031.9[facility] ThpoqjzZNVIHYYFUN1423-92-65 07:08:00 3.40[facility] YaptkisYCRPXAQIBG0315-99-42 07:08:0010.6[facility] HermannHEMATOLOGY 2011-12-07 07:08:0093.7[facility] ZtljbagQNXXDSSPGD3133-08-65 07:08:00 Test Item Value Reference Range Interpretation Comments MCH (test code = MCH) 31.1 pg 27.0-31.0 H [facility] OjronvrYFXVEUDLKX9749-32-88 07:08:41529Kakdogla HermannHEMATOLOGY 2011-12-07 07:08:0033.2[facility] DzohvlwKJMROBVSYX7726-72-54 07:08:0017.0[facility] NhoknjcALROVOGDCY3392-98-77 07:08:009.4[facility] OzrlobkKLAKCTSVLI1762-11-78 07:08:000.8[facility] RsimbolXCVQPVKOUT9825-16-63 07:08:000.0[facility] GSSIAQRATN1745-77-35 07:08:000.8[facility] KvmgnivPCHRNPAGQI5762-68-61 07:08:000.0 [facility] KcdawxhFZTZAOGPXH1784-54-57 07:08:0088.5[facility] HermannHEMATOLOGY 2011-12-07 07:08:005.7[facility] ApdlqyzWFPCEDIFBV1068-97-36 07:08:005.8[facility] LszohfxSMSSNNUEIX3716-29-01 07:08:000.0[facility] WidvzmdAAAVCBSOHQ1055-80-98 07:08:000.0[facility] ObdigbvRKEZHUDPOX1097-31-29 07:08:0011.7[facility] RNOQZWJRF8010-56-91 05:10:0014.0[facility] PtubqfxDKZVYOFRE1748-50-55 05:10:004.0 [facility] JpqjoqlVACATXZDY7138-99-45 05:10:73503Fmolbujj HermannCHEMISTRY 2011-12-06 05:10:0028[facility] IgtqoxcCRJFBREYK7304-88-88 05:10:71435Xtkmebcg HghjdwuWCYGPYWGG9212-72-27 05:10:008.1[facility] SgmzgzaNURZABMFE8171-23-77 05:10:08782Zjwalfsg CzpadanABQFZUJTL9771-21-94 05:10:0028[facility] ZWZFBJDVG1872-51-64 05:10:001.3[facility] UvhyimqPURWKOYIL6376-64-31 05:10:002.1 [facility] ZprymuoFYHAQYGGY2985-95-55 05:10:003.4[facility] HermannCHEMISTRY 2011-12-06 05:10:004.68[facility] GxywpmiFMCSKTQUP3600-55-45 05:10:004.76[facility] QoaxehdAHSWSCGBN7988-33-62 05:10:001.17[facility] WgcbtfxWYHHESGCW4609-65-47 05:10:001.19[facility] ZzjtgjwGFYYETWAKD7247-88-70 05:10:009.4[facility] WDOCMYXGBG8401-31-10 05:10:0030.9[facility] BhfzfxtJDTLXFDVVR1307-03-08 05:10:00 10.4[facility] PmabeixDZDGWYWCXN2829-30-34 05:10:0093.8[facility] HermannHEMATOLOGY 2011-12-06 05:10:00 Test Item Value Reference Range Interpretation Comments MCH (test code = MCH) 31.5 pg 27.0-31.0 H [facility] XtdfybxODINAQACJW7829-65-21 05:10:99152Fomgbbze HermannHEMATOLOGY 2011-12-06 05:10:0033.5[facility] BpblafzMICSJFOFYF1234-46-66 05:10:0016.1[facility] VxaggjwYQRVZDDQQG8764-15-87 05:10:0011.9[facility] GuxxfejSCYATHSCAK8838-98-31 05:10:003.30[facility] DjhfwinODJGAOFLTT2354-81-01 05:10:005.5[facility] [place] QRTBDUEXMN6223-47-98 05:10:005.8[facility] IcandkaHQIAACAVZG6625-67-18 05:10:00 88.6[facility] ZfkoxvdMFXXADVIYT4580-65-68 05:10:000.0[facility] HermannHEMATOLOGY 2011-12-06 05:10:000.0[facility] JguxjqpEEWJRPJZMM7282-16-91 05:10:000.7[facility] XvpxbggTNUCHGAKXV9673-07-51 05:10:000.1[facility] CmauppmHWQJFSOVAZ5574-23-04 05:10:0010.5[facility] HhanpopHCQJDSIPJM7980-78-44 05:10:000.0[facility] EUJMRSFVHU8162-52-27 05:10:000.7[facility] MgflrdhABLLAOPMSJ7622-29-71 02:02:70989 [facility] YbkawpbGHBWMTJQQJ6250-44-32 14:11:00 Test Item Value Reference Range Interpretation Comments PTT (test code = PTT) 24.0 s 22.9-35.8 N [facility] QahfezfJSBRSSNNTZ0679-05-26 14:11:00 Test Item Value Reference Range Interpretation Comments PT (test code = PT) 15.0 s 12.0-14.7 H [facility] PtfebjoYWMNHRZNTH0926-16-48 14:11:001.18[facility] HermannBACTERIAL - VGBAWICI2892-33-75 06:58:00Negative 1(12/05/2011 01:58:00)[facility] SYXGASCTV0434-73-40 06:58:005.04[facility] PapvsgdRUXYYAXPR6766-63-88 06:58:005.00 [facility] KrjqryzPMJNPHNDM7164-99-51 06:58:001.26[facility] HermannCHEMISTRY 2011-12-05 06:58:001.25[facility] IkyyxffAFFMWSSPS8386-07-63 06:58:004.0[facility] CbfhvqdFSSAAOPEB4961-40-47 06:58:001.9[facility] TwzlmdoYPQIGUWBD7600-33-64 06:58:009.0[facility] UgtcgeuPBNSPFHIB4218-17-43 06:58:0027[facility] KJPSIBDTZ0461-06-79 06:58:33098Gxnfcaqn VpolxrzCFURAVKVA0750-78-29 06:58:73025 [facility] OfofjweFZHLUJSEB0008-91-89 06:58:30873Ksblwzlz HermannCHEMISTRY 2011-12-05 06:58:001.4[facility] MeudojpIOAUOQGZP7588-35-75 06:58:004.1[facility] UlmeygkEYPJCCQZR5712-15-76 06:58:0024[facility] KgiklbnCQVDTNCWZ1331-91-92 06:58:0017.1[facility] McggzcmIPEFIMDFZU0027-78-59 06:58:000.0[facility] PGSLBDFKWV6886-95-61 06:58:000.0[facility] VmvyyolQFZBMBZKBI2641-27-90 06:58:000.3 [facility] MahpxtgPEKKWSZVTB2393-54-27 06:58:003.1[facility] HermannHEMATOLOGY 2011-12-05 06:58:000.7[facility] VspxdgnZBTEGNHJYN3512-89-19 06:58:009.3[facility] IvigypmYGABEMEAMP2700-71-33 06:58:000.2[facility] XeuoqwqODGQAOYVDZ4366-43-99 06:58:000.0[facility] LhhfwhmGTHFRKDBRS2984-88-96 06:58:006.5[facility] HZKDQVJQFR1040-03-96 06:58:0090.2[facility] SirtnhvGUZBFNAFBU5188-02-34 06:58:00 1.15[facility] OswxraqDPCZVBQTER7049-02-37 06:58:00 Test Item Value Reference Range Interpretation Comments PT (test code = PT) 14.7 s 12.0-14.7 N [facility] ToilxexBNOLNPJNMY9207-89-82 06:58:00 Test Item Value Reference Range Interpretation Comments PTT (test code = PTT) 24.4 s 22.9-35.8 N [facility] UyrqwnfMIAFPCYBGL2048-29-32 06:58:0016.1[facility] HermannHEMATOLOGY 2011-12-05 06:58:0032.8[facility] AcjkcxuDYAWQGXLNY9521-51-27 06:58:0010.3[facility] RzkujopZCMBTGUQUG3414-89-41 06:58:0094.1[facility] JkzmkteGAZKEXQHIX0537-26-51 06:58:0031.7[facility] WximeilNRPHQFOLKK4987-01-11 06:58:00 Test Item Value Reference Range Interpretation Comments MCH (test code = MCH) 30.9 pg 27.0-31.0 N [facility] GbqqnznBWJFCRAAXR3724-41-97 06:58:007.9[facility] HermannHEMATOLOGY 2011-12-05 06:58:0010.4[facility] SmxwuwlSGRWZLHEBB7649-27-90 06:58:003.37[facility] NwnjbxwGKJLASGLB9034-30-66 03:58:07302Iachtvhe NismpoiTDRCANGJH7155-99-59 03:58:98446Qflgdtfu EhxjgsiPOXUGAIIB5174-91-58 03:58:003.5[facility] [place] WLZXSFGEZ5174-57-81 03:58:0033.0[facility] DnmjakxOHYSLJQMQ7941-08-14 03:58:00 100.0[facility] JfgogpcAOWRXWFRT7696-86-04 03:58:001.6[facility] HermannCHEMISTRY 2011-12-05 03:58:001.17[facility] HrjbsioREKEBZVPC5306-59-24 03:58:004[facility] BilpyprZTZIJZPTF4779-31-23 03:58:0029[facility] LeatiwxHXRBNBCQS0979-45-62 03:58:0046[facility] SmglzboTJHTZQRDY6276-28-93 03:58:02500Doufwneg [place] YXOCXYJPP4731-41-27 03:58:0037.0[facility] ZltujcrWIMZPQRFZ2974-34-99 03:58:007.41 [facility] OljoydqJFFKJQZFP8883-89-75 02:54:89115Emflzowq HermannCHEMISTRY 2011-12-05 02:54:001.2[facility] EdpvwhkQUQTVRNWL1163-01-49 02:54:001.21[facility] IoaeujvBWJMVEXWA9196-23-41 02:54:004[facility] GwrtccdXLMPAUPPL8709-84-39 02:54:00 29[facility] VwwbwtqSIHQNPYVF3293-20-22 02:54:05409Yhfixwiy HermannCHEMISTRY 2011-12-05 02:54:0041[facility] WwvaochVWIOOKFWN7426-55-56 02:54:0037.0[facility] YhshyuvGLRETZWIL1199-93-32 02:54:003.5[facility] ModblzaJUWKKJHBY2231-12-05 02:54:007.45[facility] HmlgjohUOEPQHTMY0342-76-65 02:54:35617.0[facility] [place] RHXUAKKMG5348-34-54 02:54:0029.0[facility] ErysikqJBIBYTKVL8462-83-23 02:54:21006 [facility] PqgejugPZFBBEBEA9423-52-05 02:03:0031.0[facility] HermannCHEMISTRY 2011-12-05 02:03:17464Fbrjijrs RepnqtuOEONLNNCN9388-67-51 02:03:003.4[facility] CcgnpwtFPFUAGPBA0032-14-11 02:03:84921Hmagkyve DzltzkkUCWMSWUVD3077-08-91 02:03:001.3[facility] GtbuhqaYLADGDRTJ5534-23-63 02:03:009[facility] [place] UFCWRFDKM1452-51-81 02:03:72710.0[facility] TutbjzeTSWELVJAV2889-37-46 02:03:00 1.22[facility] YyvrtrbAMTZYWIGF5880-84-90 02:03:0037.0[facility] HermannCHEMISTRY 2011-12-05 02:03:0034[facility] WieymvdNCALIZZRX3767-45-48 02:03:007.46[facility] RdmahhsWDIBYCGPB9626-08-52 02:03:0048[facility] XuzutkeDKKGOFEON5592-07-88 02:03:16805Hmqmrgqp JcufctaMFFOQYLGZJ0752-33-21 21:00:00 Test Item Value Reference Range Interpretation Comments PTT (test code = PTT) 23.5 s 22.9-35.8 N [facility] AveybrxBEXZSINEMU9788-61-91 21:00:00 Test Item Value Reference Range Interpretation Comments PT (test code = PT) 14.0 s 12.0-14.7 N [facility] RyohratAVTBWRBBZO7724-82-74 21:00:001.08[facility] HermannHEMATOLOGY 2011-12-04 21:00:00Slight (12/04/2011 16:00:00)[facility] HermannHEMATOLOGY 2011-12-04 21:00:00Slight (12/04/2011 16:00:00)[facility] HermannHEMATOLOGY 2011-12-04 21:00:00Slight *ABN*(12/04/2011 16:00:00)[facility] 21:00:00Slight *ABN*(12/04/2011 16:00:00)[facility] 2011-12-04 21:00:00Normal (12/04/2011 16:00:00)[facility] KWSLCWX1024-33-75 05:15:00Negative (12/04/2011 00:15:00)[facility] XXPEEKP0173-69-00 22:56:00Product available (12/03/2011 17:56:00)[facility] BgxsvkoNEPBLMWVC8244-09-07 22:42:002.7[facility] DusrbokSMOWODDXA1114-06-76 22:42:001.7[facility] HermannBEDSIDE GLUCOSE ZMERENJ9152-56-69 16:24:50530Xxfpomeb HermannBEDSIDE GLUCOSE ZFWTEVZ7076-92-46 12:31:63232Efsdjcqv HermannCHEMISTRY 2011-08-28 09:26:001.8[facility] HxnytnaOUYDEXMHP9699-52-99 09:26:0012[facility] ExrmskeRPFRBSEMU3177-66-09 09:26:0036[facility] MbrtvamNRJAOADDX5113-29-01 09:26:000.7[facility] PadhuegLOHNBKQYW0137-18-97 09:26:009[facility] PIMRKQFEH6504-15-94 09:26:42817Ipskguru PvlpbscVDRIEGXJP7262-07-42 09:26:003.9 [facility] ObcnxcfBKTDOFQZL4819-94-52 09:26:0012[facility]annCHEMISTRY 2011-08-28 09:26:001.3[facility] EykeffiHFKQUBMQU6584-72-27 09:26:0096[facility] WpfpdsoWUWBWRIRH7157-44-57 09:26:008.1[facility] ZrptqqkXMDNCNYFS3563-73-26 09:26:003.1[facility] CmjukrjNBEWNMUIX1021-08-78 09:26:006.9[facility] HJVONPVHR1545-09-39 09:26:65035Oazznvqd PrwsgwzUHFQHDEFL8258-79-96 09:26:0028 [facility] SinhqcmIJAHNCMZL8631-39-24 09:26:0013.9[facility]annCHEMISTRY 2011-08-28 09:26:009[facility] AdgnevpPIVYFAOVM5243-85-71 09:26:003.8[facility] HfygueqQVDJCQMNF6415-64-40 09:26:000.8[facility] BkwnbpzRXUWZRNJLZ1787-95-06 09:26:00 Test Item Value Reference Range Interpretation Comments MCH (test code = MCH) 30.9 pg 27.0-31.0 N [facility] TlbbgqhYCNSDTYUCZ5156-46-59 09:26:0034.1[facility] HermannHEMATOLOGY 2011-08-28 09:26:0034.5[facility] HzebgrjJSMVUCWPJZ9328-31-42 09:26:0011.8[facility] QltroavFSVCCNUCSD2213-47-29 09:26:006.0[facility] CzyycodTLSUYLFCIN1185-47-50 09:26:003.81[facility] GsyylziYALXLEMPYU5629-11-82 09:26:009.0[facility] [place] NVFWYDRJJA9112-60-86 09:26:0090.8[facility] LaiighuCUMDIHMSWD2443-15-12 09:26:00 13.9[facility] IjznqgiSPJMRRRPRF5859-54-09 09:26:0060[facility]annHEMATOLOGY 2011-08-28 09:26:00 Test Item Value Reference Range Interpretation Comments PTT (test code = PTT) 31.9 s 22.9-35.8 N [facility] EncyhxaEUUFPNTIJV8808-44-78 09:26:001.78[facility]annHEMATOLOGY 2011-08-28 09:26:00 Test Item Value Reference Range Interpretation Comments PT (test code = PT) 20.6 s 12.0-14.7 H [facility] VktxnnhYGCVQFCHGM0712-83-13 09:26:001+ *ABN*(08/28/2011 04:26:00) [facility] GytpmukLQPUHYIBOF4061-09-79 09:26:00Slight *ABN*(08/28/2011 04:26:00) [facility] RcpwzqoKGPKTLUWSJ0581-27-44 09:26:000.0[facility]annHEMATOLOGY 2011-08-28 09:26:000.2[facility] CuwtglyTZDGQCANSF6695-09-36 09:26:002.1[facility] DvdlzhtTRMJPEZHEP5177-33-75 09:26:000.5[facility] JzqgckqBOHXBOJLBQ0863-47-38 09:26:003.2[facility] YicmnqnIQKLGMTNVK0759-16-28 09:26:000.4[facility] SQPKUYLGUN6112-67-19 09:26:003.9[facility] JhndxwvYABAHOJKHS2749-15-04 09:26:007.6 [facility] RyyrknuKKLDDMJNPY4081-81-90 09:26:0034.4[facility]annHEMATOLOGY 2011-08-28 09:26:0053.7[facility] HermannBEDSIDE GLUCOSE MTRBXJM2000-27-98 00:48:99753Dqlbtszu MozxbdoIBVRWZIPFE0851-66-91 19:57:0033.9[facility] [place] WTQBZYHFAM8526-06-48 19:57:0011.5[facility] QiydsieQONXUYFMP1988-08-80 09:20:003.1 [facility] TdjxdrwMVJTAAEKQ3398-25-43 09:20:0014[facility]annCHEMISTRY 2011-08-27 09:20:000.7[facility] AgzvmzfFGJDUZVYJ4026-74-76 09:20:008.2[facility] LgwepvfGBWBUDUYD0797-29-11 09:20:0012.7[facility] DmlupewXLVWMXMTB9229-22-49 09:20:0029[facility] AokndfoCYAXJDYSV5691-75-66 09:20:006.9[facility] [place] TGLXSRIAE4079-97-39 09:20:0011[facility] MoocxkdVOLNPUOIS9001-01-97 09:20:003.1 [facility] LxgjjswZSOIKWMEF2789-10-10 09:20:0037[facility]annCHEMISTRY 2011-08-27 09:20:0013[facility] RrqzyzpKLQMZMMGQ5971-79-79 09:20:000.8[facility] NgwoltnUGARQJAQN0900-00-12 09:20:003.8[facility] EljarkmRLSYSGNOH9070-73-55 09:20:0098[facility] OmncfixNWYCFECML0993-61-71 09:20:0017[facility] AEPJLQFGE4929-70-25 09:20:001.6[facility] BxwuwnvEQMZGNIGO9115-00-82 09:20:16456 [facility] AlhbjzhVZWHWBVZB1620-06-47 09:20:003.7[facility] HermannCHEMISTRY 2011-08-27 09:20:65705Ebdvrxbp QxplpepFWREYZLUZ0322-78-12 09:20:001.8[facility] ScdodpkCNJHTFKPJ5595-70-35 09:20:003.93[facility] LwacwjxYNJFXJCLR1518-73-01 09:20:0052[facility] JsnbkziWOXYZUZZM1730-90-75 09:20:19254Bryxyniv [place] ZGHIJPNIP4073-07-59 09:20:0028[facility] IkmxyfbYBVNTFIFA2467-81-56 09:20:77827 [facility] OrjebovAUWMWFYDTO7849-16-13 09:20:00 Test Item Value Reference Range Interpretation Comments PTT (test code = PTT) 32.0 s 22.9-35.8 N [facility] MqowlrmYOPTIQFKUA8120-49-08 09:20:00 Test Item Value Reference Range Interpretation Comments PT (test code = PT) 20.7 s 12.0-14.7 H [facility] EftkxtqYXMMNMLOVP5505-38-41 09:20:001.79[facility]annHEMATOLOGY 2011-08-27 09:20:0013.7[facility] BqvbqswWSPGVZXTQF2853-48-67 09:20:0055[facility] ZqjmejhHZGAJHJRSX1807-74-59 09:20:009.1[facility] NlnngaoQOUPIQXGYW5434-70-02 09:20:0034.1[facility] UqusygiIUCWMMNQJE0656-25-52 09:20:0034.7[facility] XVFJWKCCKZ2202-98-63 09:20:0091.3[facility] MoktmdfHABJJJBJYZ4140-96-42 09:20:00 11.8[facility] WcqhdgjZXCPROMYJQ5325-43-01 09:20:00 Test Item Value Reference Range Interpretation Comments MCH (test code = MCH) 31.1 pg 27.0-31.0 H [facility] GdpqztxJZGSAGMJVA9729-32-25 09:20:006.4[facility]annHEMATOLOGY 2011-08-27 09:20:003.80[facility] BklesbyIATDQOKGUO9685-23-41 09:20:002.8[facility] BlhztsiRJUCJZYZSR6708-43-30 09:20:000.2[facility] ZpbcgdnDEXQCIFCLB1422-59-56 09:20:000.0[facility] PabnqycLPNVOQTRNQ4119-23-32 09:20:000.5[facility] [place] IOZTYIEOXS4230-62-58 09:20:003.3[facility] IfodfjaKPDWXHDRQD8562-01-70 09:20:000.3 [facility] SfcufnlFKTMSNNJAP2621-23-89 09:20:002.9[facility] HermannHEMATOLOGY 2011-08-27 09:20:007.1[facility] WtnisazWETTQNJTLW3057-71-31 09:20:0045.8[facility] CgsghxfBDKVEPKTNI3219-53-16 09:20:0043.5[facility] XfbopeeGOMWJHBJQ4109-32-70 01:25:002.5[facility] LjvvgmfNSXUIJUSQ9329-61-87 01:25:001.7[facility] DSPDUYVJQ7818-62-00 01:25:0011[facility] NflimxwYARGJPIWX7888-09-97 01:25:000.6 [facility] SqysggcRXRBYBEJS3216-75-10 01:25:0038[facility] HermannCHEMISTRY 2011-08-27 01:25:0014[facility] FwglaccAFUFXLBXB5305-13-59 01:25:003.4[facility] OkjmikwPSWDSHRDY7207-55-62 01:25:10598Nvkqrnzy QhuyaadUNIPGVHEI4694-50-22 01:25:001.7[facility] PycxhjjKGMPILOFV7782-66-25 01:25:75632Pfgysprp [place] CMAYHRVYR9299-69-06 01:25:0020[facility] DxlhjgrMRRBVQSYB7096-34-47 01:25:003.5 [facility] PppcvbbSTRHOBDZO4095-23-86 01:25:10713Nbgbehnv HermannCHEMISTRY 2011-08-27 01:25:007.6[facility] JmdundsGPWKDOEAZ2577-18-90 01:25:008.7[facility] HwfswhmQZPFRCLPN2316-66-33 01:25:0028[facility] EocrbvpLBQEVWBUH2142-99-64 01:25:000.8[facility] TukiepoEXIGIVXLN2723-80-88 01:25:004.2[facility] [place] LTLYQVWOJ7964-92-91 01:25:0012[facility] UqfcrpkRHFGFGGQH3235-25-34 01:25:0012.5 [facility] ElcwxaiTITAWIMFYS2462-84-19 01:25:001.82[facility] HermannHEMATOLOGY 2011-08-27 01:25:00 Test Item Value Reference Range Interpretation Comments PT (test code = PT) 20.9 s 12.0-14.7 H [facility] PdkzorrDSBOTGBDPB5963-50-33 01:25:00 Test Item Value Reference Range Interpretation Comments PTT (test code = PTT) 32.2 s 22.9-35.8 N [facility] UgjsffaQOVBDAJXXU2454-51-69 01:25:007.3[facility] HermannHEMATOLOGY 2011-08-27 01:25:0059[facility] YfbrqwjWGNZHZKGSS2689-96-56 01:25:0014.1[facility] MulymycSLNVTSOETM6266-71-20 01:25:0033.8[facility] TelplavYWPFTPHMIX3466-69-70 01:25:009.3[facility] YpejnmcJLSMYKNJVZ0586-41-46 01:25:003.95[facility] NAPIPVTWKJ8112-46-58 01:25:00 Test Item Value Reference Range Interpretation Comments MCH (test code = MCH) 31.1 pg 27.0-31.0 H [facility] LvhbxdyDEHEHMZETD6504-38-83 01:25:0091.8[facility] HermannHEMATOLOGY 2011-08-27 01:25:004.2[facility] WayfxbjDOZTOHRKAY5120-46-50 01:25:000.1[facility] EzqennqCAYZRLAFPM1553-47-90 01:25:002.5[facility] DnkfuwcONJSBZFBTQ1058-29-47 01:25:000.4[facility] CflxhumWZOEQNXKIP7252-23-27 01:25:00Slight *ABN*(08/26/2011 20:25:00)[facility] BgewwhtHNJNKLBJJQ4949-58-55 01:25:000.0[facility] [place] HNLFXOURTF9170-47-91 01:25:004.9[facility] GysyrpfHMLBMRMQRL2531-21-10 01:25:000.5 [facility] JvffpzuUJYVSXTYYG1124-24-34 01:25:002.0[facility]annHEMATOLOGY 2011-08-27 01:25:0034.5[facility] SttutqvAIKGFOSEBY1456-18-48 01:25:0058.1[facility] BbralohUOFWLQERNA7486-11-94 01:25:00Normal (08/26/2011 20:25:00)[facility] BEDSIDE GLUCOSE XUNRODP0607-08-63 13:41:47373Xzreyqqt HihehanKNWOCTJPQ6444-20-60 13:00:006.2[facility] TliweahDIBCTWYGO7552-67-32 13:00:0016.6[facility] YATHAJXGB7576-15-79 13:00:009.0[facility] JujabcoQBMMPVYDB8934-42-67 13:00:001.0 [facility] KyrcpmgZDCMLCVSD4668-61-04 13:00:0021[facility]annCHEMISTRY 2011-07-07 13:00:004.6[facility] JrdaqotAVNLZORHU6218-18-58 13:00:29581Bsozcges TzbwkbdYDOGQSNGW0689-34-40 13:00:90604Umxdrsji OwtwclgTUTBPQYPC6667-69-76 13:00:[place] SamevaiVVXIBHDTN4977-88-00 13:00:0027[facility] UAXSXGDFFT9987-43-42 13:00:009.4[facility] BleoounUOSBUEALXI9414-41-20 13:00:0049 [facility] GnhcmmfZBGVETPRLW0932-54-89 13:00:0033.1[facility]annHEMATOLOGY 2011-07-07 13:00:0014.4[facility] TngtodgSGUWZZQHZG3182-29-48 13:00:0039.9[facility] ZgzhdlzGXAHLUXBCC5754-18-50 13:00:006.3[facility] SwcwedfFIDOUUGKWK3421-23-12 13:00:004.26[facility] IqsgowiHITSIARUTY1878-83-56 13:00:0013.2[facility] FMFZGWFLAC5344-01-61 13:00:0093.7[facility] IjdgowmPBWFFZYVQT4657-80-57 13:00:00 Test Item Value Reference Range Interpretation Comments MCH (test code = MCH) 31.0 pg 27.0-31.0 N [facility] QlbibdkTUARDPDMMP8168-74-52 13:00:00Slight *ABN*(07/07/2011 07:00:00) [facility] OdhzxpvAKBMCZFJXE5957-49-32 13:00:00Slight *ABN*(07/07/2011 07:00:00) [facility] TtgzwzaHXUBHHTQKI3567-33-47 13:00:00Slight (07/07/2011 07:00:00) [facility] PhqqxkpAKSQGNTADT0365-44-21 13:00:000.0[facility] HermannHEMATOLOGY 2011-07-07 13:00:000.2[facility] FbfmcucXJJXCLAFSK5031-74-65 13:00:003.4[facility] RwwtuggKPHQQAVUWG6844-46-61 13:00:000.4[facility] UvucjbnPNOTJCBVHL5323-99-09 13:00:000.4[facility] YwgafcqZBVZJPPNKZ8982-12-76 13:00:002.3[facility] FMBRSOHAUL0901-74-32 13:00:003.1[facility] KcxolkgLLPHEUSBKS5000-88-23 13:00:005.8 [facility] XzbggluBFVWWLDVHD0354-33-56 13:00:0036.1[facility]annHEMATOLOGY 2011-07-07 13:00:0054.6[facility] HermannBEDSIDE GLUCOSE FKAAPMU7818-88-94 02:20:95409Repfldxp HermannBEDSIDE GLUCOSE SOGMSLM0510-76-88 22:22:0086[facility] EkdoouiZAHGCDURK6595-30-59 11:45:002.680[facility] PntrbidLRLXIEBQP7808-44-73 11:45:002.64[facility] GwewyzhCFURPVDZE9622-87-58 11:45:0044[facility] QYHYSYNJN8134-91-18 11:45:0039[facility] MdjlqxnZGMVPUGRJ1538-89-12 11:45:07601 [facility] KuwbdgeMBMVNSVKX6384-75-38 11:45:88132Duqdekne HermannCHEMISTRY 2011-07-06 11:45:007.3[facility] DvspssqPXPFAZSUA9517-28-22 11:45:003.7[facility] LqtltwhLJLFSARVO4085-67-99 11:45:0051[facility] WhhmzjbQYDHNIYMF6924-86-50 11:45:0016[facility] WhmgvxfPLGGFDRAV8310-07-62 11:45:003.6[facility] QETXCYLVR6328-43-43 11:45:001.0[facility] JxutaloSXHPNMPCX5625-19-40 11:45:0012 [facility] JdegiotDKTDUJJIH8760-24-03 11:45:000.4[facility] HermannCHEMISTRY 2011-07-06 11:45:008.8[facility] CkyzzruHLHKVXHRG2027-32-52 11:45:0013.5[facility] DjcplmbLTHMKWTSN9686-82-65 11:45:0017[facility] EplcpfjNKTMJDSFL5407-75-19 11:45:0020[facility] YwsjtwaAGZMJUIKQ6896-37-50 11:45:07137Majvzhwo [facility] PMCOHPLMK7691-93-23 11:45:0028[facility] IarewhxPBLUNLGPO0108-85-43 11:45:001.2 [facility] GkgjkcvHFKTFBFCK1389-64-11 11:45:003.5[facility] HermannCHEMISTRY 2011-07-06 11:45:16809[place] HtdjynjANJSZZGMK8873-67-63 11:45:00900Lcriwhcr XnadrbuVSUWYGJKH8001-56-35 11:45:000.9[facility] XbngvhzGPHVZHSNS4233-85-23 11:45:000.19[facility] FwckciyDKNSMFROJ2056-50-53 11:45:000.7[facility] KUIOLASSE6779-85-27 11:45:0075[facility] JedwakeUKODGZSCZZ2624-39-06 11:45:0093.0 [facility] WonlebdQHBPJQYYLW1197-09-75 11:45:0033.8[facility] HermannHEMATOLOGY 2011-07-06 11:45:00 Test Item Value Reference Range Interpretation Comments MCH (test code = MCH) 31.4 pg 27.0-31.0 H [facility] RzfbppzGSAEGCFNZG6268-31-52 11:45:0012.4[facility]annHEMATOLOGY 2011-07-06 11:45:0036.7[facility] LwacirfYSWPYBSTGX4239-85-20 11:45:009.7[facility] LgosfviDHBAYQNELD8141-36-27 11:45:0014.1[facility] SlcyyllLNYXKLJLLB0921-32-42 11:45:0046[facility] YnqpsyhRQDLWRERKA0520-98-16 11:45:005.9[facility] DOMIKHWQYG5681-94-34 11:45:003.94[facility] NmfifvmTPFIBLEJMC6029-16-40 11:45:00 Slight *ABN*(07/06/2011 05:45:00)[facility] VqtfqyhODGVWIVWNW7097-86-21 11:45:00 Slight *ABN*(07/06/2011 05:45:00)[facility] HlbpjwiUVVNFXXLSN1725-38-81 11:45:00 Slight *ABN*(07/06/2011 05:45:00)[facility] DgmiwaxDJMCZIWJVB8833-59-33 11:45:00 Slight *ABN*(07/06/2011 05:45:00)[facility] DcyotmpEBIHXZFEFC0239-78-96 11:45:00 Slight (07/06/2011 05:45:00)[facility] TeqjaqaXPFXHNIFSW2764-93-42 11:45:001.0 [facility] XlykvpbNSKHJYAVWX3582-28-57 11:45:001.0[facility] HermannHEMATOLOGY 2011-07-06 11:45:005.0[facility] EtuyjijGNQOMRSJCW8386-08-67 11:45:004.0[facility] GujotbjPDNUAJCZMR1952-53-64 11:45:0048.0[facility] XseykvmHYWEMOFUNZ0484-88-87 11:45:002.5[facility] YkjgqpbRBNAKEWCEK0932-50-52 11:45:000.3[facility] PBNYAMAVBB6064-45-21 11:45:000.1[facility] JttcezqZVJOOTOCKJ8617-64-15 11:45:000.0 [facility] GzzoxwzRCUTGKVWDJ6286-00-78 11:45:0039.0[facility]annHEMATOLOGY 2011-07-06 11:45:002.0[facility] CmipuayWHQXLNYZPJ7617-22-50 11:45:002.8[facility] NvhoebsYEJIIURWI2653-91-32 03:56:79897Jikkrmhm SkhzbkdZEMZVLVQU4976-56-24 03:56:000.5[facility] KtimefwNBGSPHHBT8905-81-87 03:56:000.18[facility] QDZCRYSTM3826-96-13 03:56:0079[facility] LjmursmKCBNMQZRN0184-64-79 03:56:000.8 [facility] OywgplcTPHUEKDUS2437-75-13 03:56:004.4[facility] HermannCHEMISTRY 2011-07-06 03:56:000.4[facility] WndaoheQJMLXMBGP3791-65-88 03:56:0014[facility] UzyugmdZNOBMBXWU1981-01-93 03:56:008.8[facility] PjsenhfBVZGFVMZE3799-40-71 03:56:0014[facility] VscrcinLSHLOHXQY7601-75-83 03:56:0033[facility] NJAWDWLFN4031-92-25 03:56:001.4[facility] OyldedrBQJFAAONO4763-21-65 03:56:74333 [facility] LrcjhkgPWKNQGFFL8983-16-76 03:56:003.8[facility] HermannCHEMISTRY 2011-07-06 03:56:52545Yxyxsuxi GjxkediAWMFSCZDX1423-35-36 03:56:0018[facility] MtbccknNRUNDGLRP5321-13-38 03:56:0054[facility] JhsdbueWCLGHOFWA4218-97-43 03:56:008.9[facility] HznufgzLVIROFLSH4340-35-80 03:56:008.1[facility] JTVALBKDV6821-28-45 03:56:003.7[facility] XdkbvmySQIYMMUGO4942-34-70 03:56:0020 [facility] RuokoerARARZKJAI3131-93-57 03:56:52135Rdggqfxg HermannCHEMISTRY 2011-07-06 03:56:000.6[facility] LbrvvjhCCLKSYYVKA4737-63-32 03:56:00 Test Item Value Reference Range Interpretation Comments PTT (test code = PTT) 27.8 s 22.9-35.8 N [facility] IwzavxfCNOLGQGWZN2066-19-36 03:56:00 Test Item Value Reference Range Interpretation Comments PT (test code = PT) 17.7 s 12.0-14.7 H [facility] PnxnimrUMRQQKDNDX2776-96-88 03:56:001.46[facility] HermannHEMATOLOGY 2011-07-06 03:56:004.11[facility] XhkjisyMASRWNKJXR0062-61-02 03:56:0049[facility] GomuoedVKKPMMVULJ8836-07-57 03:56:009.1[facility] QfehywmZUQCGUVDDJ2245-95-29 03:56:0014.1[facility] BjnnxkhRUFDLSRVJU1210-53-11 03:56:005.5[facility] MWBWMWJXGS9584-85-00 03:56:0037.2[facility] ReazrihBJUUFNJOKF4226-09-22 03:56:00 90.5[facility] KwcpqijFKOQQSZSGK5460-61-44 03:56:00 Test Item Value Reference Range Interpretation Comments MCH (test code = MCH) 30.8 pg 27.0-31.0 N [facility] KryieukZZOKJESUHZ6086-49-92 03:56:0034.0[facility] HermannHEMATOLOGY 2011-07-06 03:56:0012.6[facility] GunbgusNZPEPFKDKL1339-53-19 03:56:002.0[facility] SgpsbviFCQRRZDVUE2231-02-80 03:56:000.4[facility] XszzbqhQKQZVTFUUB4956-61-49 03:56:00Slight *ABN*(07/05/2011 21:56:00)[facility] RizxffyCOPNVGVZKU8788-18-49 03:56:000.1[facility] EvzkshsOQTXJJNFET9118-64-01 03:56:0036.0[facility] TFWZOJZJVN5343-32-72 03:56:000.1[facility] NcvwwduKAWWKGGSKE4246-00-04 03:56:003.0 [facility] CguuwkwUKTLCGIDZC6359-92-51 03:56:0054.0[facility] HermannHEMATOLOGY 2011-07-06 03:56:000.0[facility] MqiuwuwFTWIQYAJHT6498-43-22 03:56:007.0[facility] YvyqktbJVMUOZILYW2701-45-81 03:56:002.0[facility] XndxplwWYVCLIHYOQ7256-73-37 03:56:001.0[facility] EakbrfdPFARUXIQEI0907-49-19 03:56:000.0[facility] QIBQTGWQXV0058-75-98 03:56:002[facility] YrelfpzFMAXTSWDJG7361-27-14 03:56:00 Normal (07/05/2011 21:56:00)[facility] HermannBEDSIDE GLUCOSE EKFEZCB0407-31-45 17:34:42284Omcsnzqo HermannBEDSIDE GLUCOSE PPTLTNN0398-58-09 13:53:39452Konlykil CgpfmtoPOVGXUJJG0152-66-82 11:00:002.1[facility] HqbkjglROULSYLNG6399-04-94 11:00:0010.4[facility] QzchlxpWYWSYIEXV1693-32-41 11:00:0029[facility] NJQGYAKGX9441-21-03 11:00:008.2[facility] BkrzkzpIREEYMYWM5471-97-86 11:00:04670 [facility] RheuszoSEWPUAJZY7467-74-78 11:00:30996Ahstcjid HermannCHEMISTRY 2011-05-05 11:00:004.4[facility] UgeyihtATCJPDWTA5520-94-20 11:00:001.2[facility] EjtzodxMYXPMITXC2523-00-37 11:00:0086[facility] CvopudkMBZCRTXWE4323-37-15 11:00:0025[facility] AmuddttESAMRULHR5948-73-69 11:00:0089[facility] QCJDAMXON4798-23-61 11:00:0042[facility] WptmwknEWWOSGJKT1450-36-81 11:00:58345 [facility] BisytwuDUAMGGZWQ3074-86-59 11:00:32102Whienckp HermannCHEMISTRY 2011-05-05 11:00:003.67[facility] NxbmbizKIQHKNIZG0468-04-88 11:00:002.5[facility] SjssbdlTKFCTCSMHM2598-41-77 11:00:00 Test Item Value Reference Range Interpretation Comments PTT (test code = PTT) 44.8 s 22.9-35.8 H [facility] MolqlchSENJKUDMGL9630-54-00 11:00:00 Test Item Value Reference Range Interpretation Comments PT (test code = PT) 21.1 s 12.0-14.7 H [facility] OqnksyfPUHBKSRFSJ8070-18-52 11:00:001.84[facility] HermannHEMATOLOGY 2011-05-05 11:00:00 Test Item Value Reference Range Interpretation Comments MCH (test code = MCH) 31.5 pg 27.0-31.0 H [facility] IvrrsrvINWGXXLNUC0704-51-07 11:00:009.7[facility]annHEMATOLOGY 2011-05-05 11:00:0034.0[facility] YsferpyBNNIACLRUK7426-45-16 11:00:0048[facility] LcuiediMCWTCRDSSD9726-16-90 11:00:0012.5[facility] TieactxLMJNGEKCJD1484-85-47 11:00:004.3[facility] JkxtoagMDYWGBGZCK1385-93-67 11:00:003.97[facility] JXBAIDSGDI4344-34-33 11:00:0036.7[facility] BartsldXSEOGHSIMH1630-23-89 11:00:00 92.5[facility] HpksahsHDXPMZRRAH7232-14-87 11:00:0015.1[facility]annHEMATOLOGY 2011-05-05 11:00:00Slight *ABN*(05/05/2011 05:00:00)[facility]annHEMATOLOGY 2011-05-05 11:00:00Slight *ABN*(05/05/2011 05:00:00)[facility]annHEMATOLOGY 2011-05-05 11:00:000.0[facility] CzszejuZDLVSWAWVE7696-56-49 11:00:000.0[facility] UvpqqyjRKOVXWQUWW3635-64-98 11:00:0051.0[facility] ZwpgutfFAWPUNFAZS1223-68-37 11:00:000.0[facility] BgpgswrHVCMPYAGFJ3121-84-92 11:00:0042.0[facility] KAOWVDLTIK0629-66-53 11:00:000.1[facility] VtkfrwlEAXPSIITKC4875-12-75 11:00:000.2 [facility] HncgfuxMYJZPITGUY2934-47-86 11:00:002.2[facility]annHEMATOLOGY 2011-05-05 11:00:001.8[facility] KdgwddnZRRLFEEAWW9795-55-97 11:00:002.0[facility] OvfzrdgVHFNUEWNZW4806-98-36 11:00:005.0[facility] HermannBEDSIDE GLUCOSE TESTING 2011-05-05 03:20:74722Lzltuitu NngteqwQWGMTZSMNF4488-77-45 10:30:000.0[facility] ExbdsrrHJILVAYHDV4821-86-04 10:30:000.1[facility] BtejzsnLALQIWWMDB0995-86-11 10:30:006.1[facility] TqcjhyqJTVXZYQJNK2400-37-18 10:30:0033.5[facility] INUJWLLQRX4515-48-88 10:30:0056.9[facility] NexjcyoEGXWNLIOPJ1404-05-39 10:30:00 1.5[facility] RxpgdtbVXGIMLSUGK8519-13-83 10:30:002.6[facility]annHEMATOLOGY 2011-05-04 10:30:000.3[facility] VyfwfpkCHSEYLUQEF8241-96-53 10:30:002.9[facility] AyltoczWJLOVDJCRH1163-82-36 10:30:000.6[facility] XzrlggtNHCUXWIQOI9696-78-18 10:30:00 Test Item Value Reference Range Interpretation Comments PTT (test code = PTT) 43.4 s 22.9-35.8 H [facility] RioksfgRSHQUQMMHI8929-45-06 10:30:00 Test Item Value Reference Range Interpretation Comments PT (test code = PT) 18.2 s 12.0-14.7 H [facility] IyydmbkZSOLVKAJOP6453-76-10 10:30:001.52[facility]annHEMATOLOGY 2011-05-04 10:30:009.8[facility] FpjltmjUNWFTJPHRD5930-86-00 10:30:0034.2[facility] PisqlizVAUAKPAILL7025-81-99 10:30:0015.0[facility] DqkyrabNYVVEZSSWU0300-28-62 10:30:0051[facility] KlsvrjpSWDTNAYYGQ2741-69-50 10:30:004.06[facility] KOESEHDWMN5619-41-65 10:30:0012.6[facility] AqlgvbvYEJFRQLNCD3994-44-44 10:30:00 Test Item Value Reference Range Interpretation Comments MCH (test code = MCH) 31.2 pg 27.0-31.0 H [facility] NuiqpywTSZSMGGLOH8704-76-99 10:30:004.5[facility]annHEMATOLOGY 2011-05-04 10:30:0037.0[facility] LhccginEMGALSGFCO0811-67-33 10:30:0091.1[facility] BzoopgxMVIEGVNFYG3031-43-32 10:40:001.41[facility] EzsqnmtLSVEUHZEQM8622-83-62 10:40:00 Test Item Value Reference Range Interpretation Comments PT (test code = PT) 17.2 s 12.0-14.7 H [facility] DlucjcnQATNMYCFEX6408-61-99 10:40:00 Test Item Value Reference Range Interpretation Comments PTT (test code = PTT) 37.6 s 22.9-35.8 H [facility] ImyrxaaMKPCKHEWKR3394-83-32 10:40:0010.0[facility]annHEMATOLOGY 2011-05-03 10:40:0066[facility] MdhduvpECEZRVBDZU5119-36-45 10:40:0091.6[facility] GtqxmooCRFDUFAOGH4062-62-09 10:40:00 Test Item Value Reference Range Interpretation Comments MCH (test code = MCH) 31.3 pg 27.0-31.0 H [facility] YvnwvafPDQBMVQTPO2197-00-23 10:40:0034.2[facility]annHEMATOLOGY 2011-05-03 10:40:0015.4[facility] FclgucmNYGRUDNMXN9887-04-24 10:40:0038.7[facility] QxjxiuuJTRJBVVJJG1828-55-03 10:40:004.8[facility] IbjvqwtSCHYXJADOH3111-18-77 10:40:004.23[facility] EltlxdcXZRUHLSNUJ5691-82-39 10:40:0013.2[facility] SFVTXKALQE1103-77-85 10:40:00Slight *ABN*(05/03/2011 04:40:00)[facility] BGHWHZAJAA2740-48-73 10:40:000.0[facility] ZhgqrtsKZXSZRZXWA6675-30-32 10:40:00 Slight *ABN*(05/03/2011 04:40:00)[facility] UxuzjdoDYXEUXORWR8014-53-82 10:40:00 2.0[facility] FykagnuCCHEORUKRK4462-40-50 10:40:006.0[facility]annHEMATOLOGY 2011-05-03 10:40:004.0[facility] SrepsjuUFWRHZVBFO6104-16-47 10:40:001.0[facility] MxioffcCBYQQFIQEW1389-30-84 10:40:000.3[facility] UwbwsviJTNVXUNABC3211-81-71 10:40:0054.0[facility] QibaqtzQCBZIFIFMK2807-28-76 10:40:0033.0[facility] SALZZXCRYO8178-74-59 10:40:000.2[facility] TcdqsylANFWGPLPTY1272-31-93 10:40:002.7 [facility] TijvwstWUKQMMWVDI2433-41-56 10:40:001.6[facility]annHEMATOLOGY 2011-05-03 10:40:000.2[facility] EqefdrhVQFFPQRCAY7752-22-61 10:40:000.2[facility] OzyjyuzJABAWXENUO5086-98-97 10:40:000.0[facility] EdkywoyOGSBHQGXUK9237-95-85 10:40:005.1[facility] PhoizbfTNXAJNUYIE1803-59-74 10:40:003.4[facility] NUNMUGSKVD2601-35-56 10:40:000.4[facility] ArrximvOMZFZVNKDJ5738-99-04 10:40:001.7 [facility] ShqxdezZPXFWNFIAS9145-85-83 10:40:002.6[facility]annHEMATOLOGY 2011-05-03 10:40:0036.4[facility] ZgaddrsSUSOHLPSIC7889-26-67 10:40:0054.7[facility] DltbgewCHKEBBFTXD6239-26-75 10:15:00Slight *ABN*(05/02/2011 04:15:00)[facility] BdsusulVWHNWARNSA2376-43-09 10:15:00Slight *ABN*(05/02/2011 04:15:00)[facility] BbnfhukYSDPADBTJS3236-26-07 10:15:000.0[facility] BuxakhbPSMHCBECQD6533-08-56 10:15:00Slight (05/02/2011 04:15:00)[facility] HuknqbcOWWSOLHNNO3006-30-46 10:30:00Slight (05/01/2011 04:30:00)[facility] NqcwfhuZGFYMLPNND2039-05-69 10:30:00Slight *ABN*(05/01/2011 04:30:00)[facility] BjkgzxfBKUMYRJYXV5100-52-37 10:30:00Slight (05/01/2011 04:30:00)[facility] EhyffdpRMKFOPNURA0649-87-20 10:30:00Slight *ABN*(05/01/2011 04:30:00)[facility] DsmmgqcQWNYVCCGYW9344-78-26 10:30:005.0[facility] KrxauyxISBKQQJLJA3168-16-48 10:30:000.0[facility] KIUYHQUQHU0551-65-15 16:15:005[facility] ZzbalpsARLBUWYDOJ8537-90-70 16:15:54255 [facility] HmxychcQAQLESTWXX5474-71-83 16:15:785941Uyboyxnv HermannHEMATOLOGY 2011-04-30 11:00:00Normal (04/30/2011 05:00:00)[facility]annHEMATOLOGY 2011-04-30 11:00:00 Test Item Value Reference Range Interpretation Comments dRVVT (test code = dRVVT) 36.9 s N [facility] BkhabbdEOVNKQBEAG5038-79-23 11:00:00Negative (04/30/2011 05:00:00) [facility] CjtmfwaLNTJXMRVUQ1053-32-66 11:00:007.0[facility] HermannIMMUNOLOGY 2011-04-30 11:00:001.65[facility] YdnpuovTHWYGCCJQK2914-38-46 11:00:000.78[facility] RgfuulxHOLERYHGOI4248-62-96 11:00:000.69[facility] RwtjczwXSXTBXGOHN6251-10-63 11:00:0051.1[facility] FycxrxgEDGBWBARXG8279-08-16 11:00:004.2[facility] EZLKZVBNRF7003-94-33 11:00:0011.2[facility] PcxkecaGUIOQAAHJN0840-37-70 11:00:00 9.9[facility] AvmvljvJDHXXAVCCD3410-73-31 11:00:0023.6[facility] HermannIMMUNOLOGY 2011-04-30 11:00:003.58[facility] PfizsizNZVTTPTUUM9204-18-27 11:00:000.29[facility] ChegyjiVBJMBFNYLL8998-90-45 11:00:00<9[facility] MnhchnuKNUCVIYWAU8927-77-49 11:00:00<9[facility] NwxbcazBGLCXLBNGG6180-03-56 11:00:00<9[facility] LBEYFIQYDQ6340-95-37 11:00:002[facility] WjpoufxVKLZGDLQWC2726-88-14 11:00:004.3 [facility] LhsojkxRVJSCNBXQB4920-62-66 11:00:006[facility] HermannCHEMISTRY 2011-04-29 11:20:008.3[facility] SujnryoDFQJUUJLC5447-92-94 11:20:004.5[facility] AvncqorLDRHIGFSY8058-89-23 11:20:79319Lprerjzp FwxuovuEORUZRBBS1394-77-00 11:20:0031[facility] XtmobvrYZJUZILCO4476-74-19 11:20:18101Lhtghxrl Noel CDBBIDRXD3829-10-50 11:20:0022[facility] BsehvetZVTSOEFUN5514-75-04 11:20:001.4 [facility] GdfxpkeNBUJCRHAQ3284-03-77 11:20:43233Jbinbfjv HermannCHEMISTRY 2011-04-29 11:20:0011.5[facility] OhcdqqgLUZRNFOFE6948-33-24 11:20:007.2[facility] KnnsxbwAELHKQUDC7211-55-48 11:20:003.540[facility] JhyreyiFPINTHEGFP7818-23-83 11:20:00Slight (04/29/2011 05:20:00)[facility] HermannBACTERIAL - SEROLOGY 2011-04-28 16:58:00Negative 1(04/28/2011 10:58:00)[facility]annCHEMISTRY 2011-04-28 16:50:006.7[facility] MmaxsgsKAUYUERRI8322-51-32 16:50:0015[facility] HrgnibwWVSYWXEKV4259-29-04 16:50:003.2[facility] YoifzmkNYWOFYWCI1867-33-71 16:50:0046[facility] ZdiyvumKIGTUZSHH5711-06-20 16:50:000.2[facility] OMFQLOITA7274-13-05 16:50:0017[facility] XdjncuqDCWKYBNGU8276-26-32 16:50:000.8 [facility] WghkyrjZAXBEEJGI9684-49-39 16:50:003.5[facility]annCHEMISTRY 2011-04-28 16:50:000.6[facility] LiefioxCFRUCDUYF5434-95-73 16:50:000.9[facility] AbvpfnxJLMBMWREA0601-56-52 16:50:0030[facility] XakfevnOFOGLSPUQ4474-91-47 16:50:008.0[facility] UontlmhBYVLYYWKU2744-74-61 16:50:0099[facility] LIZHGZASD0917-33-63 16:50:003.6[facility] CarcuyjUURXJHZHU5171-55-73 16:50:0026 [facility] TuzjkjyAGJFNAFFH3827-15-19 16:50:46723Sybmgrjh HermannCHEMISTRY 2011-04-28 16:50:54298Gkqmnleq GrscemuEEFNDPUQW4847-21-83 16:50:001.4[facility] RoajmobDILUCYIKK2367-21-79 16:50:0011.6[facility] XpkldykSFJZXSPTKL1769-05-02 16:50:00 Test Item Value Reference Range Interpretation Comments Pat Od Value (test code = Pat Od 0.084 1 Value) [facility] QbykmkeKXGTOYTCXW2513-94-03 16:50:00 Test Item Value Reference Range Interpretation Comments Pos CO Value (test code = Pos CO 0.376 1 Value) [facility] GnfdhxeQEMKDISVPA0204-74-10 16:50:00Negative (04/28/2011 10:50:00) [facility]uxmBMHAUHBLBK8895-81-34 16:50:00Normal (04/28/2011 10:50:00) [facility]SWIIM [facility] B[facility] ZJUVSNC1340-53-43 10:52:00Product available (04/28/2011 04:52:00)[facility]annBLPSafe BANK CUDDZCP0297-65-40 10:52:00 Negative (04/28/2011 04:52:00)[facility] SoutheastHbsihzaQFPJHJFLR3879-21-56 08:40:000.70 [facility] ZosdosxAHJSINHXB2731-38-14 08:40:004.9[facility]annCHEMISTRY 2011-04-28 08:40:04902Qyeekffw ZxtdsoaAAFGZXNXO5265-21-15 08:40:81337Hmlfimee HhdjogsTDSQYRMZQ7369-03-93 08:40:003.7[facility] DjzzrkvHNUDEXGPZ3258-47-80 19:22:0024.0[facility] QrrpucfPSJQLPZNBL1066-12-30 19:22:00Positive *ABN*(02/17/2011 14:22:00) ??[facility] PavyxztHTXCRTKDEE2623-52-64 19:22:001:40 *ABN*(02/17/2011 14:22:00) ??[facility] HermannBEDSIDE GLUCOSE HUQTHNR9193-12-60 15:42:01122.0[facility] HermannBEDSIDE GLUCOSE OLJCJGF4953-77-86 12:42:22250.0 [facility] MtezkzmKPLMFQLPM6523-52-13 09:15:002.3[facility]annCHEMISTRY 2011-02-17 09:15:0010.0[facility] TebahdvOZPBHNXQV4924-36-42 09:15:000.5[facility] NkdlztsKGLIXTSCK7656-58-68 09:15:0047.0[facility] PcnrsjpKAEYXKPGT5137-78-70 09:15:0026.0[facility] GrxsvwrXKKUZICTZ7783-55-21 09:15:007.0[facility] EUZNVHRVR2553-34-53 09:15:008.5[facility] FujisitPSXBVLIVB2678-53-52 09:15:0030.0 [facility] NijvjqcEISHCLSXJ5639-80-62 09:15:55533.0[facility]annCHEMISTRY 2011-02-17 09:15:004.5[facility] PqiygyoVIBZJKBMS5270-96-20 09:15:002.9[facility] HwtbhghHGWEEACFB6081-47-28 09:15:0016.0[facility] IkcjxsaMCTPWLJUW8911-92-46 09:15:49075.0[facility] YcffuexGWEUDERXL6657-55-64 09:15:001.2[facility] NKGFZAGWN8202-23-86 09:15:33480.0[facility] WfxyhqhISFCXORWU8001-28-10 09:15:00 Test Item Value Reference Range Interpretation Comments A/G Ratio (test code = A/G Ratio) 0.7 1 0.7-1.6 N [facility] HnhiovpXUHCWJFKP6602-14-27 09:15:004.1[facility]annCHEMISTRY 2011-02-17 09:15:00 Test Item Value Reference Range Interpretation Comments B/C Ratio (test code = B/C Ratio) 13.0 1 6-25 N [facility] CpvntxaNNCYTBWKF8306-66-22 09:15:0012.5[facility]annCHEMISTRY 2011-02-17 09:15:003.2[facility] XfcmdopSHJVENTDNC3334-28-16 09:15:57821.0[facility] CcljkngMBXXRSHOEH7250-97-47 09:15:009.7[facility] DgfcnckBSOXLUAWLD3856-82-99 09:15:0014.1[facility] HnbsexuIFHMKIWKVQ5619-07-62 09:15:004.65[facility] VXAWZZFIBS8219-92-13 09:15:0015.1[facility] FfbiaweIZBXHBNKGH0449-32-06 09:15:00 8.9[facility] GbdtddlCNNDMMIEWA3902-02-65 09:15:0042.5[facility]annHEMATOLOGY 2011-02-17 09:15:0091.4[facility] UsyhcasNHUHYMPYYC7095-07-50 09:15:0033.3[facility] XzqiyskHWZFSQUGPF7150-62-32 09:15:00 Test Item Value Reference Range Interpretation Comments MCH (test code = MCH) 30.4 pg 27.0-31.0 N [facility] VauznudZSHYYLELLA3564-40-39 09:15:007.8[facility] HermannHEMATOLOGY 2011-02-17 09:15:000.8[facility] TqmwoyfIXLGXBVMPR9597-99-01 09:15:000.2[facility] UevqehnMPKWPAWBQF1420-22-35 09:15:000.0[facility] HmnfpnoCOKHKEEASV6866-86-76 09:15:000.0[facility] MnrpqkxQPKIBFXBED4780-20-24 09:15:009.5[facility] WZWDVKJZTD7384-80-75 09:15:000.2[facility] HgqwansLROEIPUDVC1382-86-90 09:15:00 88.2[facility] OjoadrbLFDQYWAJCM3976-34-97 09:15:000.3[facility] HermannHEMATOLOGY 2011-02-17 09:15:001.8[facility] HermannBEDSIDE GLUCOSE VSQXDFY4793-75-56 01:39:00 155.0[facility] CacegqxFRGJWLLMTL2651-32-12 10:05:00 Test Item Value Reference Range Interpretation Comments INR (test code = INR) 1.07 1 0.85-1.17 N [facility] SoutheastNalfejsWEGNTJQMSC1888-36-79 10:05:00 Test Item Value Reference Range Interpretation Comments PTT (test code = PTT) 28.8 s 22.9-35.8 N [facility] YqggtssBCDOJBCXJC9950-76-11 10:05:00 Test Item Value Reference Range Interpretation Comments PT (test code = PT) 13.9 s 12.0-14.7 N [facility] LiurblbEBTLWUQYQ3146-59-37 09:15:002.8[facility]annCHEMISTRY 2011-02-16 09:15:0019.0[facility] JzfkavzQDREBILSN6648-86-63 09:15:008.1[facility] LeuieacBIOEHRBHV3920-39-84 09:15:006.4[facility] PowxzywHDDFYSIKO6504-82-18 09:15:0027.0[facility] ZbgedpnMUVHNHGRF6639-14-23 09:15:002.7[facility] MSQFJETRC7984-29-57 09:15:005.0[facility] BkkusuoLSWSSMTBF0782-60-20 09:15:000.4 [facility] DthamnbMIZOEQOCA8523-81-75 09:15:0038.0[facility]annCHEMISTRY 2011-02-16 09:15:0093.0[facility] PsoznpdCXJQHEFKY2929-92-36 09:15:003.6[facility] NqoibzjKWOOZIJTR4693-80-92 09:15:21471.0[facility] VpiuqsxKBMADSSRL4862-98-78 09:15:33674.0[facility] RlqmjjdTMLHTQBVW2478-36-02 09:15:0019.0[facility] WLDOCZNZS7397-85-07 09:15:001.2[facility] IlhvxxfSYSNKABMV0486-99-49 09:15:00 Test Item Value Reference Range Interpretation Comments A/G Ratio (test code = A/G Ratio) 0.7 1 0.7-1.6 N [facility] JmltuulVZDLWYYGJ2745-48-77 09:15:003.7[facility] HermannCHEMISTRY 2011-02-16 09:15:00 Test Item Value Reference Range Interpretation Comments B/C Ratio (test code = B/C Ratio) 16.0 1 6-25 N [facility] ChsdgrlSRCIPTJHX1913-73-19 09:15:0011.6[facility] HermannCHEMISTRY 2011-02-16 09:15:002.3[facility] BowwhiwVAYSDHUEFI5626-20-24 09:15:0018.7[facility] VajmyzxODRNWVTMTG3537-22-84 09:15:0075.9[facility] VrltawmTFZTYRXAKL6818-68-52 09:15:000.0[facility] BziydrnUCDAAUXRUH0793-58-72 09:15:000.1[facility] NUEZZMFXIN5014-94-10 09:15:001.8[facility] VtxsjviEBZFZVQEKW2974-41-52 09:15:000.4 [facility] UqpvsjsLCFAGZCIUI0790-02-03 09:15:000.2[facility] HermannHEMATOLOGY 2011-02-16 09:15:007.3[facility] FmstggrPKMCQSEANI2705-96-13 09:15:000.9[facility] YgfxdkxQMLUGXWATT5888-66-11 09:15:004.3[facility] EwmrykiJXUIBSJQJT7523-64-11 09:15:0013.0[facility] ZchsjoeBOKSQSAHOP6721-79-65 09:15:0038.5[facility] ULFRRLWXSI8797-58-04 09:15:004.23[facility] OmvjujoVMAIIQDVQU6485-66-88 09:15:00 9.6[facility] MsrgpetJWQYDFFERK5638-01-62 09:15:00 Test Item Value Reference Range Interpretation Comments MCH (test code = MCH) 30.7 pg 27.0-31.0 N [facility] PblbmzoONXGLPBRGA4705-29-17 09:15:0091.1[facility]annHEMATOLOGY 2011-02-16 09:15:0014.6[facility] TzdcpzpUKPOZIKVCI3606-98-47 09:15:0033.6[facility] FionmdgCUBRZGXQLY9138-09-88 09:15:17589.0[facility] OzatygxLVVUTKCDSZ2670-68-42 09:15:009.8[facility] HermannBACTERIAL - XYBNNXOB6676-94-15 16:30:00Negative (02/15/2011 11:30:00) ??[facility]ISC - [id number] 16:30:00 Negative 1(02/15/2011 11:30:00) ??[facility] HdvdukuIYIUOJURW6302-55-14 11:10:00 0.9[facility] DemdvbuKWXZDXHZX0342-16-70 11:10:0032.0[facility]annCHEMISTRY 2011-02-15 11:10:000.15[facility] HilqmaqHTVYJWTDZS8361-53-86 11:10:000.0[facility] AorajyzUOQRNHHEDW4335-02-91 11:10:000.0[facility] QfcawohPCXQIPBXND3456-82-82 11:10:000.8[facility] ObyuwhqITCBONFQON8334-48-08 11:10:002.0[facility] Noel HQZVELZEVS1239-92-42 11:10:007.1[facility] XikepseGTPNAWFXBO3645-47-43 11:10:000.5 [facility] PpxgjykGCCUXRZWYC2451-14-44 11:10:000.3[facility]annHEMATOLOGY 2011-02-15 11:10:007.8[facility] NuujnnlFKPSXHEXGF8621-03-27 11:10:0020.3[facility] CkmnyqsEHOXUXSZLA4998-53-85 11:10:0071.1[facility] IvfxwqmNSACCVTALA6597-73-99 11:10:0010.0[facility] BvzkxnlASSNNNKWCZ1224-69-99 11:10:0091.5[facility] ENOMPTFROB3373-44-06 11:10:0038.9[facility] FddgsgdFVXWCMBMUZ8740-84-59 11:10:00 4.25[facility] AixhgclJJQRRMGYET9085-79-09 11:10:0012.9[facility]annHEMATOLOGY 2011-02-15 11:10:0033.2[facility] JnrhpqvGELGAAAZJM4660-67-72 11:10:00 Test Item Value Reference Range Interpretation Comments MCH (test code = MCH) 30.4 pg 27.0-31.0 N [facility] VqeydijKMQGUVIBLJ4877-00-11 11:10:0010.0[facility]annHEMATOLOGY 2011-02-15 11:10:0014.9[facility] NzpucrnTFYVSZOYKQ7513-83-17 11:10:50553.0 [facility]annVIRAL - ELIGIKPT4953-67-57 05:20:00Negative 5(02/15/2011 00:20:00) ??[facility]annVIRAL - JPHHEAZL5805-60-23 05:20:00Negative (02/15/2011 00:20:00) ??[facility] XixyjqaRJTOXMWFD6350-27-76 05:07:0037.0[facility] ZllqjmzMDAJOSHGQ0877-92-85 05:07:000.15[facility] XlsfmvgWDYDPUTOK7248-31-53 00:24:000.14[facility] KthrwnsLIARGENNQ2473-64-98 00:24:0048.0[facility] MEVBBOQXW1825-22-20 00:24:005.0[facility] GeolbawAXZOJEMUK5874-94-29 00:24:0040.0 [facility] JvqqcikRLZYXPCLE7926-50-49 00:24:000.5[facility] HermannCHEMISTRY 2011-02-15 00:24:003.3[facility] CarczahVNIVRNZYY9593-18-78 00:24:0016.0[facility] WkswfxoYSSACEDGI2128-86-71 00:24:008.4[facility] HfwqzjcOVQEPYRXZ5543-27-25 00:24:007.5[facility] CnaxeywALXSSUOQT8531-20-29 00:24:0027.0[facility] JXDBKQYOJ8389-59-02 00:24:03083.0[facility] TduukvyWLJRRWHPX1178-18-55 00:24:004.2 [facility] UasmhbrEPJEGVRPG2082-89-32 00:24:00 Test Item Value Reference Range Interpretation Comments A/G Ratio (test code = A/G Ratio) 0.8 1 0.7-1.6 N [facility] OyixaotCJJZVULST2645-87-65 00:24:0013.9[facility] HermannCHEMISTRY 2011-02-15 00:24:00 Test Item Value Reference Range Interpretation Comments B/C Ratio (test code = B/C Ratio) 15.0 1 6-25 N [facility] FdpxcrmTMIXEQPCP4368-20-12 00:24:003.9[facility] HermannCHEMISTRY 2011-02-15 00:24:42703.0[facility] LfsashkFUEWTUPGK5053-16-75 00:24:001.4[facility] ClwsxlgNOPGJYJPV0358-34-45 00:24:0021.0[facility] CgmchpgNIWUJPPAF3295-35-12 00:24:92037.0[facility] DklskjlWMCUVJKJH6723-38-27 23:50:63061.0[facility] HGXRXVGUYT3943-96-12 23:50:00 Test Item Value Reference Range Interpretation Comments PT (test code = PT) 14.2 s 12.0-14.7 N [facility]zekvewLDZNYVVLDH4080-09-16 23:50:00 Test Item Value Reference Range Interpretation Comments PTT (test code = PTT) 22.7 s 22.9-35.8 L [facility] SoutheastIyregceSDOXPGWBAF1250-27-51 23:50:00 Test Item Value Reference Range Interpretation Comments INR (test code = INR) 1.1 1 0.85-1.17 N [facility] SoutheastNykhgnmVVNXSLKWQW2274-66-20 23:50:000.58[facility] 2011-02-14 23:50:00Normal (02/14/2011 18:50:00) ??[facility] 2011-02-14 23:50:00Normal (02/14/2011 18:50:00) ??[facility]
[2020-07-05 18:57] LABS: Absolute Lymphocytes (CBC) 1.3 K/uL (0.7-4.9); Basophils % 0.7 % (0-1.3); Hematocrit 37.2 % (39.6-49.0); MPV 8.6 fL (7.6-11.3); RBC Red Blood Cell Count 3.81 M/uL (4.33-5.43)
[2020-07-05 18:58] LABS: Protime INR 1.15
[2020-07-05 19:18] LABS: Bilirubin Direct 0.1 mg/dL (0-0.2); Bilirubin Total 0.4 mg/dL (0.2-1.0); Magnesium 2.4 mg/dL (1.8-2.4); Potassium 3.8 mmol/L (3.5-5.1); Protein, Total 8.3 g/dL (6.4-8.2)
--- NOTE | 2020-07-05 19:52 | RAD REPORT ---
EXAM DESCRIPTION: RAD - Chest Single View - 07/05/2020 6:54 pm CLINICAL HISTORY: SOB Chest pain. COMPARISON: Chest Single View dated 06/04/2020; Chest Single View dated 06/12/2019; Chest Single View d ated 02/16/2019; Chest Single View dated 01/27/2017 FINDINGS: Portable technique limits examination quality. Mild pulmonary edema suspected. The heart is moderately enlarged with a dual lead pacer device presen t. No displaced fractures.Aortic atherosclerosis. IMPRESSION: Mild CHF.
[2020-07-05] MEDS ORDERED: FUROSEMIDE 40 MG/4 ML VIAL ONE (20:10)
--- NOTE | 2020-07-05 20:24 | ER ---
Nurse's Notes [facility] Name: Tomas Suárez Age: 85 yrs Sex: Male : 1935 Arrival Date: 07/05/2020 Time: 17:24 Bed 14 Private MD: Diagnosis: Unspecified combined systolic (congestive) and diastolic (congestive) heart failure Presentation: 07/05 17:52 Chief complaint: Patient states: Bilateral leg swelling for 2 days, worse today. + SOB. ll1 Coronavirus screen: Client denies travel out of the [place] in the last 14 days. At this time, the client does not indicate any symptoms associated with coronavirus-19. Ebola Screen: Patient denies travel to an Ebola-affected area in the 21 days before illness onset. Initial Sepsis Screen: Does the patient meet any 2 criteria? No. Patient's initial sepsis screen is negative. Does the patient have a suspected source of infection? Yes: Other: CHF. Risk Assessment: Do you want to hurt yourself or someone else? Patient reports no desire to harm self or others. Onset of symptoms was July 04, 2020. 17:52 Method Of Arrival: Wheelchair ll1 17:52 Acuity: CORNELIUS 3 ll1 Historical: - Allergies: 17:56 Bactrim; ll1 17:56 Demerol; ll1 17:56 Plavix; ll1 17:56 Sulfa (Sulfonamide Antibiotics); ll1 - PMHx: 17:56 Hyperlipidemia; Hypertension; neuropathy; Pace maker; Myocardial infarction; High ll1 Cholesterol; Gout; borderline diabetic; CHF; CVA; Atrial Fib; asbestos; arrythmias; kidney disease; - PSHx: 17:56 pacemaker; cardiac stents x3; back sx; neck sx; ll1 - Immunization history:: Flu vaccine is up to date. - Social history:: Smoking status: Patient denies any tobacco usage or history of. Screenin:12 Abuse screen: Denies threats or abuse. Nutritional screening: No deficits noted. vg1 Tuberculosis screening: No symptoms or risk factors identified. Fall Risk No fall in past 12 months (0 pts). No secondary diagnosis (0 pts). IV access (20 points). Ambulatory Aid- None/Bed Rest/Nurse Assist (0 pts). Gait- Weak (10 pts.). Mental Status- Oriented to own ability (0 pts). Total Thompson Fall Scale indicates Low Risk Score (25-44 pts). Fall prevention measures have been instituted. Side Rails Up X 2 Placed close to Nursing Station. Assessment: 18:07 General: Appears in no apparent distress. comfortable, Behavior is calm, cooperative. vg1 General: Patient denies chest pain.. Pain: Complains of pain in right leg and left leg Pain currently is 10 out of 10 on a pain scale. Neuro: Level of Consciousness is awake, alert, obeys commands. Cardiovascular: Patient's skin is warm and dry. Pulses are palpable in right dorsalis pedis artery and left dorsalis pedis artery Edema ELLIOTT lower extremities. Respiratory: Airway is patent Respiratory effort is even, unlabored, Respiratory pattern is regular, symmetrical, Breath sounds are clear bilaterally. GI: No signs and/or symptoms were reported involving the gastrointestinal system. : No signs and/or symptoms were reported regarding the genitourinary system. EENT: No signs and/or symptoms were reported regarding the EENT system. Derm: Skin is pink, warm \T\ dry. Musculoskeletal: Amputation of Other: Right index finger Circulation, motion, and sensation intact. 19:27 Reassessment: Patient appears in no apparent distress at this time. No changes from vg1 previously documented assessment. Patient and/or family updated on plan of care and expected duration. Pain level reassessed. Patient is alert, oriented x 3, equal unlabored respirations, skin warm/dry/pink. Vital Signs: 17:52 BP 124 / 63; Pulse 68; Resp 18; Temp 97.8; Weight 131.09 kg; Height 6 ft. 4 in. (193.04 ll1 cm); Pain 10/10; 18:11 BP 128 / 61; Pulse 70; Resp 18; Pulse Ox 100% on R/A; vg1 19:27 BP 140 / 54; Pulse 69; Resp 14; Pulse Ox 100% on R/A; vg1 17:52 Body Mass Index 35.18 (131.09 kg, 193.04 cm) ll1 ED Course: 17:24 Patient arrived in ED. ds1 17:55 Triage completed. ll1 17:56 Arm band placed on Patient placed in an exam room, on a stretcher. ll1 18:00 Selena Boswell, RN is Primary Nurse. vg1 18:03 [facility] Cord[facility]-C [facility]. kb 18:03 Steven Greene MD is Attending Physician. kb 18:12 Patient has correct armband on for positive identification. Bed in low position. Call vg1 light in reach. Side rails up X 1. 18:41 Initial lab(s) drawn, by me, sent to lab. Inserted saline lock: 22 gauge in left 3 forearm, using aseptic technique. Blood collected. 18:53 XRAY Chest (1 view) In Process Unspecified. EDMS 19:45 Repeat lab(s) drawn. by me, sent to lab. jp3 19:45 Troponin (Emerg Dept Use Only) Sent. jp3 19:45 Troponin (emerg Dept Use Only) Sent. jp3 20:22 Marli Ambrose MD is Hospitalizing Provider. kb 20:56 US Extremity Venous W Compression Elliott In Process Unspecified. EDMS 22:24 No provider procedures requiring assistance completed. Patient admitted, IV remains in vg1 place. Administered Medications: 19:56 Drug: Lasix 40 mg Route: IVP; Site: left forearm; vg1 22:29 Follow up: Response: No adverse reaction vg1 Outcome: 20:23 Decision to Hospitalize by Provider. kb 22:24 Admitted to Tele accompanied by tech, via wheelchair, room 219, with chart, Report vg1 called to ROMY Roth 22:24 Condition: stable 22:24 Instructed on the need for admit. 23:11 Patient left the ED. vg1 Signatures: Dispatcher [employer] EDMI Mely Cordova FNP-C FNP-Anna Estrada ds1 Coby Garcia 3 Yadiel Cano 3 Selena Boswell, RN RN vg1 Frida Steen, RN RN ll1
--- NOTE | 2020-07-05 20:24 | EDPHYS ---
Physician Documentation [facility] Name: Tomas Suárez Age: 85 yrs Sex: Male : 1935 Arrival Date: 07/05/2020 Time: 17:24 Bed 14 Private MD: ED Physician Steven Greene HPI: 07/05 19:44 This 85 yrs old Black Male presents to ER via Wheelchair with complaints of Leg kb Swelling. 19:44 The patient presents with swelling. The complaints affect the right leg and left leg. kb Context: the patient can fully bear weight, the patient is able to ambulate. Onset: The symptoms/episode began/occurred yesterday. Modifying factors: The symptoms are alleviated by nothing. the symptoms are aggravated by nothing. Associated signs and symptoms: Pertinent positives: swelling, Pertinent negatives calf tenderness, fever, nausea, numbness, rash, tingling, vomiting, warmth, weakness. Treatment prior to arrival includes: no previous treatment. Severity of symptoms: At their worst the symptoms were moderate, in the emergency department the symptoms are unchanged. The patient has experienced similar episodes in the past, several times. The patient has not recently seen a physician. Pt reports lower extremity edema that started yesterday. Denies shortness of breath, chest pain. Historical: - Allergies: 17:56 Bactrim; ll1 17:56 Demerol; ll1 17:56 Plavix; ll1 17:56 Sulfa (Sulfonamide Antibiotics); ll1 - PMHx: 17:56 Hyperlipidemia; Hypertension; neuropathy; Pace maker; Myocardial infarction; High ll1 Cholesterol; Gout; borderline diabetic; CHF; CVA; Atrial Fib; asbestos; arrythmias; kidney disease; - PSHx: 17:56 pacemaker; cardiac stents x3; back sx; neck sx; ll1 - Immunization history:: Flu vaccine is up to date. - Social history:: Smoking status: Patient denies any tobacco usage or history of. ROS: 19:43 Constitutional: Negative for fever, chills, and weight loss, Respiratory: Negative for kb shortness of breath, cough, wheezing, and pleuritic chest pain, Abdomen/GI: Negative for abdominal pain, nausea, vomiting, diarrhea, and constipation, Skin: Negative for injury, rash, and discoloration, Neuro: Negative for headache, weakness, numbness, tingling, and seizure. 19:43 Cardiovascular: Positive for edema, Negative for chest pain. 19:43 MS/extremity: Positive for swelling, of the right leg and left leg. Exam: 19:10 ECG was reviewed by the Attending Physician. kb 19:40 Constitutional: This is a well developed, well nourished patient who is awake, alert, kb and in no acute distress. Head/Face: Normocephalic, atraumatic. Chest/axilla: Normal chest wall appearance and motion. Nontender with no deformity. No lesions are appreciated. Cardiovascular: Regular rate and rhythm with a normal S1 and S2. No gallops, murmurs, or rubs. Normal PMI, no JVD. No pulse deficits. Abdomen/GI: Soft, non-tender, with normal bowel sounds. No distension or tympany. No guarding or rebound. No evidence of tenderness throughout. Skin: Warm, dry with normal turgor. Normal color with no rashes, no lesions, and no evidence of cellulitis. Neuro: Awake and alert, GCS 15, oriented to person, place, time, and situation. Cranial nerves II-XII grossly intact. Motor strength 5/5 in all extremities. Sensory grossly intact. Cerebellar exam normal. Normal gait. 19:40 Cardiovascular: Edema: pedal edema. Vital Signs: 17:52 BP 124 / 63; Pulse 68; Resp 18; Temp 97.8; Weight 131.09 kg; Height 6 ft. 4 in. (193.04 ll1 cm); Pain 10/10; 18:11 BP 128 / 61; Pulse 70; Resp 18; Pulse Ox 100% on R/A; vg1 19:27 BP 140 / 54; Pulse 69; Resp 14; Pulse Ox 100% on R/A; vg1 17:52 Body Mass Index 35.18 (131.09 kg, 193.04 cm) ll1 MDM: 18:03 Patient medically screened. kb 19:12 Data reviewed: vital signs, nurses notes. Data interpreted: Pulse oximetry: on room air kb is 100 %. Interpretation: normal. 20:21 Counseling: I had a detailed discussion with the patient and/or guardian regarding: the kb historical points, exam findings, and any diagnostic results supporting the discharge/admit diagnosis, lab results, radiology results, the need for further work-up and treatment in the hospital. Physician consultation: Marli Ambrose MD was contacted at 20:22, regarding admission, to the telemetry unit. patient's condition, and will see patient in ED, shortly. 07/05 18:12 Order name: Basic Metabolic Panel 07/05 18:12 Order name: CBC with Diff 07/05 18:12 Order name: LFT's 07/05 18:12 Order name: Magnesium 07/05 18:12 Order name: NT PRO-BNP 07/05 18:12 Order name: PT-INR; Complete Time: 19:08 07/05 18:13 Order name: Basic Metabolic Panel; Complete Time: 19:19 EDMA 07/05 18:13 Order name: CBC with Automated Diff; Complete Time: 19:08 EDMA 07/05 18:13 Order name: Liver (Hepatic) Function; Complete Time: 19:19 EDMA 07/05 18:13 Order name: Magnesium; Complete Time: 19:19 EDMA 07/05 18:13 Order name: NT PRO-BNP; Complete Time: 19:19 EDMA 07/05 19:31 Order name: Troponin (emerg Dept Use Only) 07/05 19:31 Order name: Troponin (Emerg Dept Use Only); Complete Time: 20:11 EDMA 07/05 18:12 Order name: XRAY Chest (1 view); Complete Time: 20:11 07/05 19:31 Order name: US Extremity Venous W Compression Kevin 07/05 20:40 Order name: COVID-19 : Document "Date of Symptom Onset" if Symptomatic. 07/05 20:41 Order name: CORONAVIRUS [facility] 07/05 20:52 Order name: CBC with Automated Diff [facility] 07/05 20:52 Order name: Comprehensive Metabolic Panel [facility] 07/05 20:52 Order name: Comprehensive Metabolic Panel [facility] 07/05 20:52 Order name: Troponin I [facility] 07/05 20:52 Order name: Troponin I [facility] 07/05 20:52 Order name: Troponin I [facility] 07/05 20:53 Order name: CBC with Automated Diff [facility] 07/05 20:53 Order name: Magnesium [facility] 07/05 20:53 Order name: Magnesium [facility] 07/05 20:53 Order name: Magnesium [facility] 07/05 20:53 Order name: Magnesium EDMA 07/05 21:52 Order name: SARS-COV-2 RT PCR EDMS 07/05 18:12 Order name: EKG; Complete Time: 18:13 kb 07/05 18:12 Order name: Cardiac monitoring; Complete Time: 18:21 kb 07/05 18:12 Order name: EKG - Nurse/Tech; Complete Time: 18:21 kb 07/05 18:12 Order name: IV Saline Lock; Complete Time: 18:48 kb 07/05 18:12 Order name: Labs collected and sent; Complete Time: 18:49 kb 07/05 18:12 Order name: O2 Per Protocol; Complete Time: 18:13 kb 07/05 18:12 Order name: O2 Sat Monitoring; Complete Time: 18:13 kb 07/05 20:52 Order name: CONS Pharmacy Consult EDMA 07/05 20:52 Order name: Heart Healthy EDMA EC:10 Rate is 69 beats/min. Rhythm is regular. QRS Maria Stein is Normal. QRS interval is normal at kb 164 msec. QT interval is normal at 492 msec. Administered Medications: 19:56 Drug: Lasix 40 mg Route: IVP; Site: left forearm; vg1 22:29 Follow up: Response: No adverse reaction vg1 Disposition: 07/05/20 20:23 Hospitalization ordered by Marli Ambrose for Observation. Preliminary diagnosis is Unspecified combined systolic (congestive) and diastolic (congestive) heart failure. - Bed requested for Telemetry/MedSurg (observation). - Status is Observation. vg1 - Condition is Stable. - Problem is an acute exacerbation. - Symptoms are unchanged. Addendum: 07/08/2020 05:10 Co-signature as Attending Physician, Steven Greene MD I agree with the assessment and k dr plan of care. Signatures: Dispatcher [employer] [facility] Mely Cordova FNP-C FNP-Eive Marie RN RN Steven Greene MD MD kdr Garcia, Victoria, RN RN vg1 Frida Steen RN RN ll1 Corrections: (The following items were deleted from the chart) 07/05 18:20 18:13 TROPONIN (EMERG DEPT USE ONLY)+C.LAB.BRZ ordered. [facility] 21:59 20:23 Hospitalization Ordered by Marli Ambrose MD for Observation. Preliminary mw diagnosis is Unspecified combined systolic (congestive) and diastolic (congestive) heart failure. Bed requested for Telemetry/MedSurg (observation). Status is Observation. Condition is Stable. Problem is an acute exacerbation. Symptoms are unchanged. kb 23:11 21:59 07/05/2020 20:23 Hospitalization Ordered by Marli Ambrose MD for Observation. vg1 Preliminary diagnosis is Unspecified combined systolic (congestive) and diastolic (congestive) heart failure. Bed requested for Telemetry/MedSurg (observation). Status is Observation. Condition is Stable. Problem is an acute exacerbation. Symptoms are unchanged. mw
[2020-07-05] MEDS ORDERED: MORPHINE 2 MG/ML SYR IV PRN (20:45)
[2020-07-05] MEDS ORDERED: ONDANSETRON 4 MG/2 ML VIAL IV PRN (20:45)
[2020-07-05] MEDS ORDERED: ALBUTEROL 2.5 MG/3 ML NEB SOL NEB PRN (20:45)
[2020-07-05] MEDS ORDERED: ACETAMINOPHEN 500 MG TAB PO PRN (20:45)
[2020-07-05] MEDS ORDERED: FUROSEMIDE 40 MG/4 ML VIAL IV ONE (20:48)
--- NOTE | 2020-07-05 20:57 | P.HP ---
Certification for Inpatient Patient admitted to: Observation With expected LOS: <2 Midnights Patient will require the following post-hospital care: None Practitioner: I am a practitioner with admitting privileges, knowledge of patient current condition, hospital course, and medical plan of care. Services: Services provided to patient in accordance with Admission requirements found in Title 42 Section 412.3 of the Code of Federal Regulations Patient History Date of Service: 07/05/20 Reason for admission: Shortness of breath and leg swelling History of Present Illness: 85-year-old male with past medical history of hypertension, CAD status post recent negative cardiac catheterization 2 weeks ago, history of CKD stage 3, history of diastolic CHF, history of hypothyroidism, history of bradycardia status post pacemaker follows with [facility] cardiology team, status post admitted here 2 weeks ago for chest pain and elevated troponin of 0.3. Patient cardiac CT done as outpatient after creatinine improved from 2.3-1.8. Cardiac catheterization was unremarkable. Patient developed worsening shortness of breath, leg swelling since then. On admission today is creatinine is 1.89 but noted with marked elevated BNP of greater than 4 hr on as well as troponin was 0.2. Chest x-ray shows mild pulmonary edema. He has been admitted for CHF exa cerbation. He was not taking any diuretics as outpatient Allergies sulfamethoxazole [From Bactrim] Allergy (Mild, Verified 01/28/17 06:26) Rash trimethoprim [From Bactrim] Allergy (Mild, Verified 01/28/17 06:26) Rash clopidogrel [From Plavix] Allergy (Verified 01/28/17 06:26) Unknown Sulfa (Sulfonamide Allergy (Uncoded 01/28/17 02:10) Unknown Home Medications: Atorvastatin Calcium [Lipitor] 40 mg PO BEDTIME 01/28/17 Hydrocodone Bit/Acetaminophen [Hydrocodon-Acetaminophn 10-500] 1 each PO TID PRN 01/28/17 allopurinoL [Zyloprim*] 100 mg PO DAILY 01/28/17 Alprazolam [Xanax] 0.5 mg PO BID 06/12/19 Amiodarone HCl [Cordarone*] 200 mg PO BID 06/12/19 Apixaban [Eliquis *] 2.5 mg PO BID 06/12/19 Aspirin [Ecotrin 81 MG] 81 mg PO DAILY 06/12/19 Calcitrol [Rocaltrol*] 0.25 mcg PO SEECOM 06/12/19 Gabapentin 200 mg PO TID 06/12/19 Metoprolol Tartrate 25 mg PO BID 06/12/19 Levothyroxine [Synthroid*] 0.05 mg PO DAILYAC #30 tablet 06/13/19 - Past Medical/Surgical History Diabetic: No -: HTN -: CHF, diastolic dysfunction -: Atrial fibrillation on chronic anti coagulation therapy -: CAD with prior stents -: Pacemaker defibrillator -: GERD -: Neuropathy -: Pacemaker defibrillator -: Cardiac stents Psychosocial/ Personal History: Patient is lives at home. - Family History Father -: Other (see notes) Mother -: Heart disease Brother -: Heart disease Notes: 3 brothers - heart failure Sister -: Heart disease Notes: heart failure - Social History Alcohol use: No CD- Drugs: No Caffeine use: Yes Review of Systems 10-point ROS is otherwise unremarkable Physical Examination - Physical Exam General: Alert, In no apparent distress, Oriented x3, Oriented x2 HEENT: Atraumatic, Normocephalic, PERRLA Neck: Supple, 2+ carotid pulse no bruit, JVD not distended Respiratory: Normal air movement, Crackles/rales Cardiovascular: Regular rate/rhythm, Normal S1 S2, Edema Gastrointestinal: Normal bowel sounds, Soft and benign, Non-distended Musculoskeletal: No clubbing, Swelling Integumentary: No rashes, No breakdown Neurological: Normal gait, Normal speech, Normal strength at 5/5 x4 extr, Normal tone - Studies Laboratory Data (last 24 hrs) 07/05/20 18:41: PT 13.3 H, INR 1.15 07/05/20 18:41: WBC 7.00, Hgb 12.5 L, Hct 37.2 L, Plt Count 120 L 07/05/20 18:41: Sodium 141, Potassium 3.8, BUN 28 H, Creatinine 1.89 H, Glucose 109 H, Magnesium 2.4, Total Bilirubin 0.4, AST 23, ALT 24, Alkaline Phosphatase 75 Imagings Data: CXR FINDINGS: Portable technique limits examination quality. Mild pulmonary edema suspected. The heart is moderately enlarged with a dual lead pacer device present. No displaced fractures.Aortic atherosclerosis. CARDIAC CATH REPORT 06/15/20 . He was right dominant. He had only minimal plaquing in the LAD, circumflex, left main and the RCA. He has a long left main. There were no focal stenosis. The patient tolerated the procedure well. There were no complications. Blood Loss: 5 mL. Anesthesia: Total conscious sedation was 45 minutes. Final Diagnosis: Non-ST elevation myocardial infarction, may have been demand ischemia secondary to his acute renal failure. Minimal coronary artery disease. Assessment and Plan - Problems (Diagnosis) (1) Acute diastolic heart failure Current Visit: No Status: Acute (2) CHF (congestive heart failure) Onset Date: 01/28/17 Current Visit: No Status: Acute Qualifiers: Heart failure type: right heart failure due to left heart failure Qualified Code(s): I50.814 - Right heart failure due to left heart failure (3) Elevated troponin Current Visit: No Status: Acute (4) CAD (coronary artery disease) Onset Date: 01/28/17 Current Visit: No Status: Chronic Qualifiers: (5) HTN (hypertension) Onset Date: 01/28/17 Current Visit: No Status: Chronic Qualifiers: (6) Afib Onset Date: 01/28/17 Current Visit: No Status: Resolved Qualifiers: - Advance Directives Does patient have a Living Will: No Does patient have a Durable POA for Healthcare: No - Code Status/Comfort Care Code Status: Full Code Physician Review: Patient Assessed, Agree with Above Assessment and Plan Physician Review Additional Text: # CHF Exacerbation-likely due to diastolic dysfunction Start diuretics IV Lasix 40 mg x1 today, start Lasix 40 b.i.d. Follow daily weight Limit fluid intake to less than 1.5 L per day. Can plan for discharge home in a.m. if creatinine remains stable or electrolyte stable next and # elevation of troponin-mild, likely due to demand mediated, since negative cardiac catheterization 2 weeks ago, no urgent need for cardiology evaluation or repeat intervention #Hypertension-controlled # AFib/bradycardia-on Eliquis, status post pacemaker # DVT prophylaxis-on Eliquis # Advanced directive-full code Time Spent Managing Pts Care (In Minutes): 65
[2020-07-05] MEDS: METOPROLOL TAR 25 MG TAB PO SCH (21:00)
[2020-07-05] MEDS: AMIODARONE HCL 200 MG TAB PO SCH (21:00)
[2020-07-05] MEDS ORDERED: ATORVASTATIN 40 MG TAB PO SCH (21:00)
[2020-07-05] MEDS ORDERED: CALCITROL 0.25 MCG CAP PO SCH (21:00)
[2020-07-05] MEDS: APIXABAN 2.5 MG TABLET PO SCH (21:00)
[2020-07-05] MEDS: GABAPENTIN 100 MG CAP PO SCH (21:00)
--- NOTE | 2020-07-05 21:10 | RAD REPORT ---
EXAM DESCRIPTION: US - Extrem Venous W Compress Kevin - 07/05/2020 8:57 pm CLINICAL HISTORY: SWELLING Bilateral leg edema and swelling. COMPARISON: <Comparisons> TECHNIQUE: Real-time sonographic interrogation of the left and right lower extremity deep venous sys tems was performed. FINDINGS: Normal compressibility, flow augmentation, phasic flow and spontaneous flow is identified in both the left and right lower extremity deep venous systems. IMPRESSION: No sonographic evidence of left or right lower extremity deep venous thrombosis.
[2020-07-05 23:49] LABS: Magnesium 2.1 mg/dL (1.8-2.4); Troponin I 0.23 ng/mL (0.0-0.045)
[2020-07-06 00:52] VITALS: BMI 37.7
[2020-07-06 06:02] LABS: Absolute Lymphocytes (CBC) 1.3 K/uL (0.7-4.9); Basophils % 0.4 % (0-1.3); Hematocrit 34.9 % (39.6-49.0); MPV 9.9 fL (7.6-11.3); RBC Red Blood Cell Count 3.57 M/uL (4.33-5.43)
[2020-07-06 06:10] LABS: Albumin 2.6 g/dL (3.4-5.0); Bilirubin Total 0.5 mg/dL (0.2-1.0); Potassium 3.5 mmol/L (3.5-5.1); Protein, Total 7.2 g/dL (6.4-8.2)
[2020-07-06] MEDS ORDERED: LEVOTHYROXINE SOD 0.05 MG TABLET PO SCH (06:30)
--- NOTE | 2020-07-06 07:55 | EKG ---
Test Date: 2020-07-05 Test Time: 18:18:15 Application Software Engineer: MEME MEASUREMENT RESULTS: Intervals: Rate: 69 [place]: QRSD: 164 QT: 492 QTc: 527 [place]: P: [place]: QRS: -73 T: 104 INTERPRETIVE STATEMENTS: Ventricular-paced rhythm Abnormal ECG Compared to ECG 06/06/2020 15:31:26 No significant changes Electronically Signed On 07-06-20 07:54:01 MANUFACTURING PLANT TECHNICIAN by Pierce Bloom
[2020-07-06] MEDS: GABAPENTIN 100 MG CAP PO SCH ×2 (08:47→14:36)
[2020-07-06] MEDS: FUROSEMIDE 40 MG TABLET PO SCH ×2 (08:47→17:00)
[2020-07-06] MEDS: METOPROLOL TAR 25 MG TAB PO SCH (08:47)
[2020-07-06] MEDS: AMIODARONE HCL 200 MG TAB PO SCH (08:55)
[2020-07-06] MEDS: APIXABAN 2.5 MG TABLET PO SCH (08:55)
[2020-07-06] MEDS ORDERED: ASPIRIN EC 81 MG TAB PO SCH (09:00)
[2020-07-06] MEDS ORDERED: allopurinoL 100 MG TAB PO SCH (09:00)
[2020-07-06 11:27] VITALS: O2SAT 98
--- NOTE | 2020-07-06 11:54 | P.DS ---
Admission Date: 07/05/20 Discharge Date: 07/06/20 Disposition: ROUTINE DISCHARGE Discharge Condition: FAIR Reason for Admission: Shortness of breath and leg swelling - Problems (1) Acute diastolic heart failure Status: Acute (2) Elevated troponin Status: Acute (3) CAD (coronary artery disease) Onset Date: 01/28/17 Status: Chronic Qualifiers: (4) HTN (hypertension) Onset Date: 01/28/17 Status: Chronic Qualifiers: (5) Morbid obesity Onset Date: 01/28/17 Status: Chronic (6) Afib Onset Date: 01/28/17 Status: Resolved Qualifiers: Brief History of Present Illness: 85-year-old man with a history of hypertension, coronary artery disease status post recent negative cardiac catheterization, history of chronic atrial fibrillation on Eliquis anticoagulation, status post pacemaker, history of chronic kidney disease stage 3 presented to the emergency department with a complaint of shortness of breath and lower extremity swelling. Patient per report had a recent cardiac catheterization 2 weeks ago which was reported as unremarkable. Troponin in the ED was mildly elevated, BNP is significantly elevated. Chest x-ray demonstrated mild pulmonary edema. Patient was admitted for CHF exacerbation. Hospital Course: Patient placed under observation on the medical floor. Troponin trended was flat with no acute elevation to suggest ACS. Patient had a cardiac catheterization 2 weeks ago which was reported as unremarkable. He was also treated with IV Lasix followed by oral Lasix therapy. Patient's shortness of breath resolved with treatment. His serum creatinine was stable on the Lasix. He currently has no complain. Vital stable. Patient is discharged with oral Lasix maintenance therapy. He is informed to follow with his PCP within 1 week. Vital Signs/Physical Exam: Temp Pulse Resp BP Pulse Ox 97.9 F 69 18 138/70 98 07/06/20 08:00 07/06/20 08:47 07/06/20 08:00 07/06/20 08:47 07/06/20 08:00 General: Alert, In no apparent distress, Oriented x3 HEENT: Mucous membr. moist/pink Neck: JVD not distended Respiratory: Clear to auscultation bilaterally, Normal air movement Cardiovascular: No edema, Regular rate/rhythm, Normal S1 S2 Gastrointestinal: Soft and benign, Non-distended Musculoskeletal: No swelling, No tenderness Integumentary: No rashes Neurological: Other (No focal motor deficit.) Laboratory Data at Discharge: WBC 6.30 K/uL (4.3-10.9) 07/06/20 05:03 Hgb 11.6 g/dL (13.6-17.9) L 07/06/20 05:03 Hct 34.9 % (39.6-49.0) L 07/06/20 05:03 Plt Count 118 K/uL (152-406) L 07/06/20 05:03 PT 13.3 SECONDS (9.5-12.5) H 07/05/20 18:41 INR 1.15 07/05/20 18:41 Sodium 141 mmol/L (136-145) 07/06/20 05:03 Potassium 3.5 mmol/L (3.5-5.1) 07/06/20 05:03 BUN 30 mg/dL (7-18) H 07/06/20 05:03 Creatinine 1.78 mg/dL (0.55-1.3) H 07/06/20 05:03 Glucose 107 mg/dL (74-106) H 07/06/20 05:03 Magnesium Cancelled 07/06/20 21:00 Total Bilirubin 0.5 mg/dL (0.2-1.0) 07/06/20 05:03 AST 17 U/L (15-37) 07/06/20 05:03 ALT 20 U/L (12-78) 07/06/20 05:03 Alkaline Phosphatase 54 U/L (45-117) 07/06/20 05:03 Troponin I 0.21 ng/mL (0.0-0.045) H 07/06/20 03:01 Home Medications: Atorvastatin Calcium [Lipitor] 40 mg PO BEDTIME 01/28/17 Hydrocodone Bit/Acetaminophen [Hydrocodon-Acetaminophn 10-500] 1 each PO TID PRN 01/28/17 allopurinoL [Zyloprim*] 100 mg PO DAILY 01/28/17 Alprazolam [Xanax] 0.5 mg PO BID 06/12/19 Amiodarone HCl [Cordarone*] 200 mg PO BID 06/12/19 Apixaban [Eliquis *] 2.5 mg PO BID 06/12/19 Aspirin [Ecotrin 81 MG] 81 mg PO DAILY 06/12/19 Calcitrol [Rocaltrol*] 0.25 mcg PO SEECOM 06/12/19 Gabapentin 200 mg PO TID 06/12/19 Metoprolol Tartrate 25 mg PO BID 06/12/19 Levothyroxine [Synthroid*] 0.05 mg PO DAILYAC #30 tablet 06/13/19 Furosemide [Lasix*] 40 mg PO DAILY #30 tab 07/06/20 New Medications: Furosemide [Lasix*] 40 mg PO DAILY #30 tab Diet: AHA Activity: Ad alonzo Followup: LEIGH ABRAHAM [Primary Care Provider] - 1 Week
[2020-07-06] MEDS ORDERED: ALBUTEROL 2.5 MG/3 ML NEB SOL NEB PRN (16:00)
[2020-07-06 16:38] VITALS: BP 152/72; TEMP 96.9
== END 2020-07-06 17:44 | disposition home or self-care (01) ==
LOC: ER 17:17 → ERHOLD 20:46 → 2ND 22:23
PROVIDERS: ADMIT Internal Medicine; ATTEND Internal Medicine
DX: I13.0 Hypertensive heart and chronic kidney disease with heart failure and stage 1 through stage 4 chronic kidney disease, or unspecified chronic kidney disease (principal); I50.33 Acute on chronic diastolic (congestive) heart failure; Z20.822 Contact with and (suspected) exposure to COVID-19; R94.31 Abnormal electrocardiogram [ECG] [EKG]; I25.10 Atherosclerotic heart disease of native coronary artery without angina pectoris; N18.30 Chronic kidney disease, stage 3 unspecified; E66.01 Morbid (severe) obesity due to excess calories; I48.20 Chronic atrial fibrillation, unspecified; R77.8 Other specified abnormalities of plasma proteins; Z79.01 Long term (current) use of anticoagulants; E03.9 Hypothyroidism, unspecified; Z95.5 Presence of coronary angioplasty implant and graft; Z95.810 Presence of automatic (implantable) cardiac defibrillator; K21.9 Gastro-esophageal reflux disease without esophagitis; G62.9 Polyneuropathy, unspecified; Z68.35 Body mass index [BMI] 35.0-35.9, adult
CPT/HCPCS: 36415; 71045; 80048; 80053; 80076; 83735; 83880; 84484; 85025; 85610; 93005; 93970; 96374; 99285; G0378; J1940; U0003

== ENCOUNTER 2020-08-04 13:24 | Emergency (ER) | payer OTHER ==
--- OUTSIDE RECORDS SUMMARY | 2020-08-04 13:42 | XMS REPORT | Continuity of Care Document ---
:[address] [facility] t Address [address] [place] [address] Care Team Providers Name Role Phone Jose [...] RESPIRATOR 00 Y FAILURE, CHF Active 11/29/2018 [facility] ACUTE ON Diagnosis Active 2019-01-17 M emoria CHRONIC 11-29 09:46:00 l CHF ACUTE ON 00:00: Pankaj n CHRONIC 00 CHF Active 11/29/2018 [facility] J44.9 - Diagnosis Active 2017-052018-05-20 Ga moriroshni CHRONIC 06-14 15:41:00 l OBSTRUCTIV J44.9 - 00:01: Her greenwood E CHRONIC 00 PULMONARY OBSTRUCTIV R0 E PULMONARY R0 Active 8 [facility] [place] ATRIAL Diagnosis Active 2017-052018-04-19 Mem oria FIBRILLATI -16 16:22:00 l ON, CAD ATRIAL 00:00: Noel FIBRILLATI 00 ON, CAD Active 03/25/2018 [facility] Acute deep Acute deep Disease Active 2016-05 [place] vein vein 06-14 Method[place] thrombosis thrombosis 00:00: st (DVT) of (DVT) of 00 both lower both lower extremitie extremitie s s ALTERED Diagnosis Active 2016-052017-04-20 Ga evonne MENTAL 06-08 21:57:00 l STATUS ALTERED 00:00: Noel MENTAL 00 STATUS Active 04/08/2017 [facility] SENT BY Diagnosis Active 2016-052017-03-16 Me douglass DRShanice 05-16 15:25:00 l SENT BY 00:00: Noel DAMON 00 Active 03/16/2017 [facility] ACUTE DEEP Diagnosis Active 2016-052017-03-22 Memoria VEIN 05-16 08:39:00 l THROMBOSIS ACUTE 00:00: Jessica nn OF LEFT DEEP VEIN 00 LOWER THROMBOSIS OF LEFT LOWER Active 03/16/2017 [facility] CHEST PAIN Diagnosis Active 2015-052016-03-17 Memoria AFIB 0 22:03:00 l CHEST 00:00: Rowdy PAIN AFIB 00 Active 03/09/2016 [facility] CHEST Diagnosis Active 2016-01-20 Mem oria TIGHTNESS 01-16 15:11:00 l CHEST 00:00: Noel TIGHTNESS 00 Active 01/17/2016 [place] UNABLE TO Diagnosis Active 2015-05-28 Memoria URINATE 05-28 15:38:00 l UNABLE 00:00: Noel TO URINATE 00 Active 05/28/2015 [place] CHEST PAIN Diagnosis Active 2014-052015-05-01 Memoria 06-21 21:54:00 l CHEST 00:00: Noel PAIN 00 Active 04/20/2015 [facility], [place] FLANK PAIN Diagnosis Active 2015-02-02 Memoria 02-02 17:03:00 l FLANK 00:00: Rowdy PAIN 00 Active 02/02/2015 [facility] 722.93 - Diagnosis Active 2014-11-21 M emoria DISC DIS - 16:48:00 l NEC/NO 722.93 - 00:01: Pankaj n 724.02 - DISC DIS 00 "SPIN NEC/NO 724.02 - "SPIN Active 09/20/2014 [facility] SPITTING Diagnosis Active 2015-10-29 M emoria UP BLOOD, 07-06 10:05:00 l COUGHING SPITTING 12:00: Herm pinky UP MUCUS UP BLOOD, 00 COUGHING UP MUCUS Active 07/06/2014 [place] 785.6 - Diagnosis Active 2013-052014-08-06 Me moria ENLARGEMEN - 10:58:00 l T LYM 785.6 - 00:01: Noel ENLARGEMEN 00 T LYM Active 03/30/2014 [facility] MEDISTINAL Diagnosis Active 2013-052014-04-02 Memoria LYMPADENOP 05-23 06:14:00 l ATHY 00:00: Rowdy MEDISTINAL 00 LYMPADENOP ATHY Active 03/23/2014 [facility] HEMOPTYSIS Diagnosis Active 2013-052014-02-26 Memoria 0-19 00:32:00 l 00:00: Noel HEMOPTYSIS 00 Active 02/25/2014 [facility] ACS, CHEST Diagnosis Active 2013-052014-02-27 Memoria PAIN 0-19 07:54:00 l ACS, 00:00: Rowdy CHEST PAIN 00 Active 02/25/2014 [facility] MULTIFOCAL Diagnosis Active 2013-052014-03-13 Memoria PNEUMONIA, 0-19 17:32:00 l HEMOPTYSIS 00:00: Pankaj pena , ACS, C MULTIFOCAL 00 PNEUMONIA, HEMOPTYSIS , ACS, C Active 02/25/2014 [facility] A-FIB, Diagnosis Active 2014-02-02 Mem oria TACHYCARDI - 22:29:00 l A A-FIB, 21:00: Noel TACHYCARDI 00 A Active 01/25/2014 [facility] MEDIASTINA Diagnosis Active 2012-07-21 Memoria L 3-07 11:17:00 l LYMPHADENO 00:00: Pankaj pena PAUL MEDIASTINA 00 L LYMPHADENO PAUL Active 07/14/2012 [place] 486 - Diagnosis Active 2012-07-14 Mem oria "PNEUMONIA 1-22 15:30:00 l , ORGA" 486 - 00:01: Noel "PNEUMONIA 00 , ORGA" Active 05/31/2012 [facility] [place] ACUTE MN, Diagnosis Active 2011-052012-03-07 Memoria NSTEMI 0-18 08:55:00 l ACUTE 00:00: Noel MN, NSTEMI 00 Active 02/25/2012 [facility] LUMBAR Diagnosis Active 2011-12-14 Mem oria SPINAL 7- 21:47:00 l STENOSIS LUMBAR 00:00: Pankaj pena SPINAL 00 STENOSIS Active 12/01/2011 [facility] LUMBAR Diagnosis Active 2012-02-05 Mem oria STENOSIS, - 15:16:00 l LUMBAR LUMBAR 00:00: Noel RADICULOPA STENOSIS, 00 THY LUMBAR RADICULOPA THY Active 09/08/2011 [facility] GI BLEED Diagnosis Active 2011-09-02 M emoria 4-18 22:00:00 l GI BLEED 15:00: Pankaj n 00 Active 08/26/2011 [place] CHEST Diagnosis Active 2011-07-07 Mem oria PAIN, 2- 12:57:00 l THROMBOCYT CHEST 08:00: Jessica nn OPENIA PAIN, 00 THROMBOCYT OPENIA Active 07/05/2011 [facility] BIJAL Diagnosis Active 2011-08-22 Mem oria - 15:27:00 l BIJAL 00:00: Noel 00 Active 05/18/2011 [place] Cardiac Problem Active 2010-052018-12-03 Kaz david catheteriz 06-29 22:16:39 l ation Cardiac 00:00: Rowdy (procedure catheteriz 00 ) ation (procedure ) Active 04/28/2011 Problem 12/03/2018 [facility] [place],[facility] [place] Cardiac Problem Active 2010-052012-07-23 Kaz david catheteriz 2 09:02:15 l ation Cardiac 00:00: Rowdy catheteriz 00 ation Active 04/28/2011 Problem 07/23/2012 [facility], [facility] [place] [place] ATRIAL Diagnosis Active 2010-052011-04-30 Mem oria FIB, - 15:36:00 l UNSTABLE ATRIAL 15:47: Pankaj pena ANGINA FIB, 00 UNSTABLE ANGINA Active 04/27/2011 [facility] TEAR Diagnosis Active 2010-052011-09-30 Mem oria MEDIAL - 17:50:00 l MENISCUS TEAR 00:00: Noel MEDIAL 00 MENISCUS Active 03/16/2011 [place] BLOOD IN Diagnosis Active 2010-052011-03-27 M emoria STOOL 0-06 15:38:00 l BLOOD IN 00:00: Pankaj n STOOL 00 Active 02/12/2011 [place] Atrial Problem Active 2018-12-03 Memor ia fibrillati 22:16:39 l on Atrial Rowdy (disorder) fibrillati on (disorder) Active Problem 12/03/2018 [facility] [place] [place] Asbestosis Problem Active 2018-12-03 M emoria (disorder) 22:16:39 l Noel Asbestosis (disorder) Active Problem 12/03/2018 [facility] [place] [place] Congestive Problem Active 2018-12-03 M emoria heart 22:16:39 l failure Noel (disorder) Congestive heart failure (disorder) Active Problem 12/03/2018 [facility] [place] [place] Dizziness Problem Active 2018-12-03 Me moria (finding) 22:16:39 l Rowdy Dizziness (finding) Active Problem 12/03/2018 [facility] [place],[facility], [place] Deep Problem Active 2018-12-03 Memor ia venous 22:16:39 l thrombosis Deep Pankaj n of lower venous extremity thrombosis (disorder) of lower extremity (disorder) Active Problem 12/03/2018 [facility] [place], [place] Gout Problem Active 2018-12-03 Memor ia (disorder) 22:16:39 l Gout Rowdy (disorder) Active Problem 12/03/2018 [facility] [place], [place] Hypertensi Problem Active 2018-12-03 M emoria ve 22:16:39 l disorder, Noel systemic Hypertensi arterial ve (disorder) disorder, systemic arterial (disorder) Active Problem 12/03/2018 [facility] [place],[facility], [place] Myocardial Problem Active 2018-12-03 M emoria infarction 22:16:39 l (disorder) Pankaj n Myocardial infarction (disorder) Active Problem 12/03/2018 [facility] [place],[facility], [place] Monoclonal Problem Active 2018-12-03 M emoria gammopathy 22:16:39 l (disorder) Pankaj n Monoclonal gammopathy (disorder) Active Problem 12/03/2018 low platelets [facility] [place],[facility], [place] Morbid Problem Active 2018-12-03 Memor ia obesity 22:16:39 l (disorder) Morbid Herm pinky obesity (disorder) Active Problem 12/03/2018 [facility] [place],[facility] Pain Problem Active 2018-12-03 Memor ia (finding) 22:16:39 l Pain Noel (finding) Active Problem 12/03/2018 [facility] [place],[facility], [place] Sleep Problem Active 2018-12-03 Memor ia apnea 22:16:39 l (finding) Sleep Pankaj n apnea (finding) Active Problem 12/03/2018 [facility] [place],[facility], [place] Dizziness Problem Active 2011-08-30 Me moria 09:29:29 l Rowdy Dizziness Active Problem 08/30/2011 [facility], [place] AF - Problem Active 2012-07-23 Memor ia Atrial 09:02:15 l fibrillati AF - Pankaj n on Atrial fibrillati on Active Problem 3 [facility], [facility] [place],[facility], [place] Atrial Problem Active 2012-07-23 Memor ia fibrillati 09:02:15 l on Atrial Noel fibrillati on Active Problem 3 [place] Diabetes Problem Active 2012-07-23 Mem oria mellitus 09:02:15 l Diabetes Pankaj n mellitus Active Problem 07/23/2012 [place] Dizziness Problem Active 2012-07-23 Me moria 09:02:15 l Noel Dizziness Active Problem 07/23/2012 [facility], [facility] [place],[facility], [place] Fusion Problem Active 2012-07-23 Memor ia 09:02:15 l Fusion Rowdy Active Problem 07/23/2012 [facility], [facility] [place],[facility], [place] HTN - Problem Active 2012-07-23 Memor ia Hypertensi 09:02:15 l on HTN - Rowdy Hypertensi on Active Problem 3 [facility] [place] Pain Problem Active 2012-07-23 Memor ia 09:02:15 l Pain Rowdy Active Problem 07/23/2012 [facility], [facility] [place],[facility], [place] Sleep Problem Active 2012-07-23 Memor ia apnea 09:02:15 l Sleep Rowdy apnea Active Problem 07/23/2012 [place] Fused Problem Active 2016-03-14 Memor ia structure 02:15:12 l (morpholog Fused Jessica nn ic structure abnormalit (morpholog y) ic abnormalit y) Active Problem 6 [facility], [place] CHEST PAIN Diagnosis Active 2011-02-16 Memoria NOS 11:42:00 l CHEST Rowdy PAIN NOS Active [place] ATRIAL Diagnosis Active 2014-02-02 Mem oria FIBRILLATI 22:29:00 l ON ATRIAL Noel FIBRILLATI ON Active [facility] ANGINA Diagnosis Active 2011-04-30 Mem oria DECUBITUS 15:36:00 l ANGINA Noel DECUBITUS Active [facility] SLEEP Diagnosis Active 2011-08-22 Mem oria APNEA NOS 15:27:00 l SLEEP Rowdy APNEA NOS Active [place] GASTROINTE Diagnosis Active 2011-09-[address] HEMORR 22:00:[address] HEMORR NOS Active [place] LUMB/LUMBO Diagnosis Active 2012-02-05 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:00 l DEGEN [place] LUMB/LUMBO SAC DISC DEGEN Active [facility] SPIN Diagnosis Active 2012-02-05 Mem oria STEN,LUMBR 15:16:00 l WO OMARI SPIN Row[place] STEN,LUMBR WO OMARI Active [facility] LUMBOSACRA Diagnosis Active 2012-02-05 Memoria L 15:16:00 l SPONDYLOSI Pankaj n S LUMBOSACRA L SPONDYLOSI S Active [facility] AMI Diagnosis Active 2012-03-07 Mem oria NOS-INITIA 08:55:00 l L EPISODE AMI [place] NOS-INITIA L EPISODE Active [facility] PNEUMONIA, Diagnosis Active 2014-03-13 Memoria ORGANISM 17:32:00 l NOS [place] PNEUMONIA, ORGANISM NOS Active [facility] ENLARGEMEN Diagnosis Active 2014-04-02 Memoria T LYMPH 06:14:00 l NODES Rowdy ENLARGEMEN T LYMPH NODES Active [facility] CHEST Diagnosis Active 2015-05-01 Mem oria PAIN, 21:54:00 l UNSPECIFIE CHEST Jessica nn D PAIN, UNSPECIFIE D Active [facility] ILLNESS, Diagnosis Active 2018-11-30 M emoria UNSPECIFIE 04:35:00 l D ILLNESS, Pankaj n UNSPECIFIE D Active [facility] ACUTE Diagnosis Active 2017-03-22 Mem oria EMBOLISM 08:39:00 l AND ACUTE Noel THOMBOS EMBOLISM UNSP DEEP AND VEI THOMBOS UNSP DEEP VEI Active [facility] SYNCOPE Diagnosis Active 2017-04-20 Me moria AND 21:57:00 l COLLAPSE SYNCOPE Jessica nn AND COLLAPSE Active [facility] ANEMIA, Diagnosis Active 2017-04-20 Me moria UNSPECIFIE 21:57:00 l D ANEMIA, Rowdy UNSPECIFIE D Active [facility] UNSPECIFIE Diagnosis Active 2018-04-19 Memoria D ATRIAL 16:22:00 l FIBRILLATI Pankaj n ON UNSPECIFIE D ATRIAL FIBRILLATI ON Active [facility] HEART Diagnosis Active 2019-01-17 Mem oria FAILURE, 09:46:00 l UNSPECIFIE HEART Jessica nn D FAILURE, UNSPECIFIE D Active [facility] BENIGN Diagnosis Active 2018-11-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:14:00 l 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 Active [facility] RECURRENT Diagnosis Active 2018-11-30 Memoria AND PERST 14:14:00 l HEMATURIA Noel W UNSP MOR RECURRENT AND PERST HEMATURIA W UNSP MOR Active [facility] Illness, Problem 2018-12-03 Mem oria unspecifie 22:16:39 l d Illness, Pankaj n unspecifie d 12/03/2018 [facility] Immune Problem 2018-10-16 Memor ia thrombocyt 13:38:32 l 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 10/16/2018 [facility] Hypertensi Problem 2018-10-16 M emoria ve heart 13:38:32 l and Noel chronic Hypertensi kidney ve heart disease and with heart chronic failure kidney and stage disease 1 through with heart stage 4 failure chronic and stage kidney 1 through disease, stage 4 or chronic unspecifie kidney d chronic disease, kidney or disease unspecifie d chronic kidney disease 10/16/2018 [facility] Paroxysmal Problem 2018-10-16 M emoria atrial 13:38:32 l fibrillati Pankaj n on Paroxysmal atrial fibrillati on 10/16/2018 [facility] Encounter Problem 2018-10-16 Me moria for 13:38:32 l immunizati Pankaj n on Encounter for immunizati on 10/16/2018 [facility] Metabolic Problem 2018-10-16 Me moria syndrome 13:38:32 l Rowdy Metabolic syndrome 10/16/2018 [facility] Morbid Problem 2018-10-16 Memor ia (severe) 13:38:32 l obesity Morbid Rowdy due to (severe) excess obesity calories due to excess calories 10/16/2018 [facility] Dilated Problem 2018-10-16 Kaz david cardiomyop 13:38:32 l athy Dilated Noel cardiomyop athy 9 [facility] 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 [place] rotic coronary heart artery disease of without [place] angina coronary pectoris artery without angina pectoris 10/16/2018 [facility] Chronic Problem 2018-10-16 Kaz david kidney 13:38:32 l disease, Chronic Jessica nn stage 3 kidney (moderate) disease, stage 3 (moderate) 10/16/2018 [facility] Hyperlipid Problem 2018-10-16 M emoria emia, 13:38:32 l unspecifie Pankaj n d Hyperlipid emia, unspecifie d 10/16/2018 [facility] Bronchitis Problem 2018-10-16 M emoria , not 13:38:32 l specified Noel as acute Bronchitis or chronic , not specified as acute or chronic 10/16/2018 [facility] Unspecifie Problem 2018-10-16 M emoria d 13:38:32 l osteoarthr Pankaj n itis, Unspecifie unspecifie d d site osteoarthr itis, unspecifie d site 10/16/2018 [facility] Gout, Problem 2018-10-16 Memor ia unspecifie 13:38:32 l d Gout, Rowdy unspecifie d 10/16/2018 [facility] Presence Problem 2018-10-16 Mem oria of cardiac 13:38:32 l pacemaker Presence Her green[place] of cardiac pacemaker 10/16/2018 [facility] Personal Problem 2018-10-16 Mem oria history of 13:38:32 l nicotine Personal Herm pinky dependence history of nicotine dependence 10/16/2018 [facility] 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 10/16/2018 [facility] Heart Problem 2018-10-16 Memor ia failure, 13:38:32 l unspecifie Heart Jessica nn d failure, unspecifie d 10/16/2018 [facility] Coronary Problem 2018-10-16 Mem oria angioplast 13:38:32 l y status Coronary Herm pinky angioplast y status 10/16/2018 [facility] Personal Problem 2018-10-16 Mem oria history of 13:38:32 l transient Personal Her [place] ischemic history of attack transient (TIA), and ischemic cerebral attack infarction (TIA), and without cerebral residual infarction deficits without residual deficits 10/16/2018 [facility] Anemia, Problem 2018-10-16 Kaz david unspecifie 13:38:32 l d Anemia, Noel unspecifie d 10/16/2018 [facility] Sleep Problem 2018-10-16 Memor ia apnea, 13:38:32 l unspecifie Sleep Jessica nn d apnea, unspecifie d 10/16/2018 [facility] Hypotensio Problem 2018-10-16 M emoria n, 13:38:32 l unspecifie Pankaj n d Hypotensio n, unspecifie d 10/16/2018 [facility] Personal Problem 2018-10-16 Mem oria history of 13:38:32 l other Personal Pankaj n venous history of thrombosis other and venous embolism thrombosis and embolism 10/16/2018 [facility] Old Problem 2018-10-16 Memor ia myocardial 13:38:32 l infarction Old Pankaj n myocardial infarction 10/16/2018 [facility] 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 13:38:32 l Noel Monoclonal gammopathy 10/16/2018 [facility] Chest pain Problem Inactiv 2012-07-23 Memoria e 09:02:15 l Chest [place] pain Inactive Problem 07/23/2012 [facility], [facility] [place] [place] Nausea Problem Inactiv 2012-07-23 Kaz david e 09:02:15 l Nausea Row[place] Inactive Problem 07/23/2012 [facility], [facility] [place] [place] Cough Problem Inactiv 2012-07-23 Kaz david e 09:02:15 l Cough Noel Inactive Problem 07/23/2012 [facility], [facility] [place] [place] Cerebrovas Problem Resolve 2018-12-03 Memoria cular d 22:16:39 l accident Rowdy (disorder) Cerebrovas cular accident (disorder) Resolved Problem 12/03/2018 [facility] [place] [place] Diabetes Problem Resolve 2018-12-03 Me moria mellitus d 22:16:39 l (disorder) Diabetes He rmann mellitus (disorder) Resolved Problem 12/03/2018 pt states he is not a diabeticPA TIENT STATES HE IS NOT A DIABETICbo rder line [facility] [place] [place] Pneumonia Problem Resolve 2018-12-03 M emoria (disorder) d 22:16:39 l Noel Pneumonia (disorder) Resolved Problem 12/03/2018 [facility] [place] [place] CHF - Problem Resolve 2012-07-23 Kaz david Congestive d 09:02:15 l heart CHF - Noel failure Congestive heart failure Resolved Problem 07/23/2012 [facility] [place] DVT - Deep Problem Resolve 2012-07-23 Memoria vein d 09:02:15 l thrombosis DVT - Jessica nn of lower Deep vein limb thrombosis of lower limb Resolved Problem 07/23/2012 [facility] [place] History of Past Illness Condition Condition Condition Status Onset Resolution Last Treating Co mments Source Name Details Category Date Date Treatment Clinician Date Sick sinus Problem 2017-052018-10-16 2018-10-16 Memoria syndrome 06-07 13:38:32 13:38:32 l Sick 05:28: Noel sinus 29 syndrome 8 10/16/2018 [facility] Discharge Problem 2015-05-31 2015-05-31 Memoria Diagnosis: 05-28 04:51:27 04:51:27 l Chronic 06:00: Rowdy renal Discharge 00 insufficie Diagnosis: ncy Chronic renal insufficie ncy 05/28/2015 05/31/2015 [place] Discharge Problem 2015-05-31 2015-05-31 Memoria Diagnosis: 05-28 04:51:27 04:51:27 l Acute 06:00: Rowdy urinary Discharge 00 tract Diagnosis: infection Acute urinary tract infection 05/28/2015 05/31/2015 [place] Discharge Problem 2015-02-05 2015-02-05 Memoria Diagnosis: 02-02 03:21:07 03:21:07 l Accidental 05:00: Pankaj n fall Discharge 00 Diagnosis: Accidental fall 02/02/2015 02/05/2015 [facility] Discharge Problem 2015-02-05 2015-02-05 Memoria Diagnosis: 02-02 03:21:07 03:21:07 l Contusion 05:00: Rowdy of hip Discharge 00 Diagnosis: Contusion of hip 02/02/2015 02/05/2015 [facility] Discharge Problem 2014-07-08 2014-07-08 Memoria Diagnosis: 07-06 20:37:37 20:37:37 l Hemoptysis 06:00: Pankaj n Discharge 00 Diagnosis: Hemoptysis 07/06/2014 07/08/2014 [place] Allergies, Adverse Reactions, Alerts Allergy Allergy Status [...] s to drug Sulfa Propensi Active 2016-05 [place] (Sulfona ty to 2-05 Methodi mide adverse 00:00: st Antibiot reaction 00 ics) s to drug sulfa sulfa Active Memoria drugs drugs l Noel Plavix Plavix Active Memoria l Noel Bactrim Bactrim Active Severe Memoria l Noel NKFA NKFA Active Memoria l [place] Social History Social Habit Start Date Stop Date Quantity Comments Source Social History 2018-03-25 2018-03-25 [facility] ermann 23:48:44 23:48:44 Alcohol intake 2017-04-23 2017-04-23 Current [facility] thodist 00:00:00 00:00:00 non-drinker of alcohol (finding) Sex Ass[birth year] At [birth year] [place] M ethodist 00:00:00 00:00:00 Smoking Status Start Date Stop Date Source Never smoker [place] Methodis t Medications Ordered Filled Start Stop Current Ordering Indication Dosage Frequency Signature Comments Components Source Medication Medication Date Date Medication? Clinician (SIG) Name Name carvedilol Yes 3.125 mg = M emoria 3.125 mg 7-25 1 tab, PO, l oral tablet 18:07: [...] 14:00: Lasix) carvedilol No Notes: Memor ia -24 Give with l 14:00: food. Rowdy (Same As: Coreg) Aspirin 81 No Notes: Do Me moria MG Enteric 724 not crush l Coated 14:00: or chew. Noel Tablet (Same As: Ecotrin) Acetaminoph No Notes: Do M emoria en 300 MG / 24 not exceed l Codeine 09:27: 4gm/day of Herm pinky Phosphate acetaminop 30 MG Oral hen. Tablet (Same as: [Tylenol Tylenol with with Codeine #3] Codeine # 3) Saline No Notes: Memoria Flush 0.9% 11-30 Same as: l 06:21: BD Noel Posiflush Sterile apixaban Yes 2.5 mg, Memori a 2.5 MG Oral 7-24 PO, BID, 0 l Tablet 03:56: Refill(s) Pankaj pena [Eliquis] atorvastati Yes 40 mg = 1 M emoria n 40 mg 7-24 tab, PO, l oral tablet 03:56: Daily, 0 He rmann Refill(s) losartan No 100 mg = 1 [...] tab, PO, l tablet 19:32: BID, 0 Rowdy 00 Refill(s) metoprolol 2017-05 Yes 25 mg = 1 Me moria tartrate 25 1-20 tab, PO, l mg oral 19:32: Q12H, 0 Noel tablet 00 Refill(s) Amiodarone 2017-05 No Notes: Memor ia 1-19 (Same as: l 23:00: Cordarone) Fentanyl 2017-05 No 100 Memoria 1-19 microgram, l 20:12: Route: IV, Rowdy 00 ONCE, Dosing Weight 137.727, kg, Start date: 03/28/18 14:12:00 TURN MACHINE OPERATOR, Stop date: 03/28/18 14:12:00 TURN MACHINE OPERATOR Midazolam 2017-05 No 2 mg, Memoria 1-19 Route: IV, l 20:12: ONCE, Noel 00 Dosing Weight 137.727, kg, Start date: 03/28/18 14:12:00 TURN MACHINE OPERATOR, Stop date: 03/28/18 14:12:00 TURN MACHINE OPERATOR metoprolol 2017-05 No Notes: Memor ia tartrate -19 (Same as: l 03:00: Lopressor) Warfarin 2017-05 No Notes: Memoria -18 Nurse to l 23:00: ensure documentat [...] Memoria 1-17 Nurse to l 23:00: ensure Rowdy 00 documentat ion of patient education per anticoagul ation policy. Avoid large intake of vitamin-K containing foods diet. (Same As: Coumadin) WASTE: F/P - P Waste Black; E - P Waste Black Insulin 2017-05 No Notes: Memoria Lispro 1-17 (Same as: l 18:50: Humalog ) Roll in palms of hands gently; Do not shake `vigorousl y. "Single Patient Use Only " WASTE: F/P - Black; E - Municipal Trash Bin Stable for 28 days at room temperatur e. Expires in days from ____Date Glucagon 2017-05 No 1 mg, Memoria 1-17 Route: IM, l 18:50: Drug form: PDR/INJ, PRN, Dosing Weight 137.727, kg, PRN Blood Glucose Results, Start date: 03/26/18 12:50:00 TURN MACHINE OPERATOR, Duration: 30 day, Stop date: 04/25/18 12:49:00 TURN MACHINE OPERATOR Dextrose 2017-05 No 12.5 gm, Memor ia 50% Syringe -17 25 mL, l 18:50: Route: IVP, Drug Form: INJ, Dosing Weight 137.727, kg, PRN, PRN Blood Glucose Results, Start date: 03/26/18 12:50:00 TURN MACHINE OPERATOR, Duration: 30 day, Stop date: 04/25/18 12:49:00 TURN MACHINE OPERATOR Senokot 2017-05 No Notes: Memoria 1-17 (Same as: l 15:00: Senokot) Noel 00 docusate 2017-05 No Notes: Memoria sodium 100 -17 (Same as: l mg oral 15:00: Colace) Noel capsule (Do Not Crush) Allopurinol 2017-05 No Notes: Kaz david -17 (Same as: l 15:00: Zyloprim) Amoxicillin 2017-05 No Notes: Kaz david / -17 With food. l Clavulanate 15:00: (Same as: H erm Augmentin 875) Prednisone 2017-05 No Route: PO, M emoria 1-17 Daily, l 15:00: Dosing Weight 137.727, kg, Start date: 03/26/18 9:00:00 TURN MACHINE OPERATOR, Duration: 30 day, Stop date: 04/24/18 9:00:00 TURN MACHINE OPERATOR Losartan 2017-05 No Notes: Memoria 1-17 (Same as: l 15:00: Cozaar) Rowdy 00 Aspirin 81 2017-05 No Notes: Do [...] No Notes: Memor ia 100 MG Oral -16 (Same as: l Capsule 23:00: Neurontin) SENOKOT-S 2017-05 No 1 tab, Memori a -16 Route: PO, l 23:00: Dosing Weight 137.727, kg, BID, Start date: 03/25/18 17:00:00 TURN MACHINE OPERATOR, Duration: 30 day, Stop date: 04/24/18 9:00:00 TURN MACHINE OPERATOR carvedilol 2017-05 No Notes: Memor ia 1-16 Give with l 23:00: food. (Same As: Coreg) 200 ACTUAT 2017-05 No 2 puff, Kaz david Albuterol 16 Route: l 0.09 22:51: INHALER, Rowdy MG/ACTUAT / 00 Drug Form: Ipratropium AERO/A, Riddle Dosing 0.018 Weight MG/ACTUAT 137.727, Metered kg, BID, Dose PRN Inhaler Wheezing, [Combivent] Start date: 03/25/18 16:51:00 TURN MACHINE OPERATOR, Duration: 30 day, Stop date: 04/24/18 16:50:00 TURN MACHINE OPERATOR gabapentin 2017-05 Yes 200 mg = 2 M emoria 100 MG Oral 1-16 cap, PO, l Capsule 22:32: BID, 0 Rowdy 00 Refill(s) Warfarin 2017-05 No See Memoria 1-16 Instructio l 22:32: ns, 1 mg PO EVERY OTHER DAY, 0 Refill(s) Augmentin 2017-05 No 875 mg, Memor ia 1-16 PO, Daily, l 22:32: # 20 tab, Rowdy 00 0 Refill(s) carvedilol 2017-05 Yes 25 mg, [...] tab, PO, l Coated 22:32: Daily, # Rowdy Tablet 00 90 tab, 3 Refill(s) allopurinol [...] ia 2- (Same As: l 03:00: Flomax) Rowdy "Do Not Crush" Acetaminoph 2016-05 No Notes: Do M emoria en 300 MG / 2-01 not exceed l Codeine 02:05: 4gm/day of Herm pinky Phosphate acetaminop 30 MG Oral hen. Tablet (Same as: [Tylenol Tylenol with with Codeine #3] Codeine # 3) Furosemide 2016-05 No Notes: Memor ia 1-30 (Same as: l 23:00: Lasix) Noel May cause GI upset. Give with food or milk. 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 Rowdy (Same As: Coreg) Senokot 2016-05 No Notes: Memoria -30 (Same as: l 23:00: Senokot) Noel 00 200 ACTUAT 2016-05 No Notes: Memor ia Albuterol -30 Same as: l 0.09 22:48: Combivent Rowdy MG/ACTUAT / 00 Respimat Ipratropium WASTE: Riddle Aerosol - 0.018 Return to MG/ACTUAT Pharmacy Metered Dose Inhaler [Combivent] Insulin 2016-05 No Notes: Memoria Lispro -30 Roll in l 22:41: palms of Rowdy 00 hands gently; Do not shake `vigorousl [...] Blood Glucose Results, Start date: 04/08/17 16:41:00 TURN MACHINE OPERATOR, Duration: 30 day, Stop date: 05/08/17 16:40:00 TURN MACHINE OPERATOR Dextrose 2016-05 No 25 gm, 50 Kaz david 50% Syringe 1-30 mL, Route: l 22:41: IVP, Drug Form: INJ, Dosing Weight 145.909, kg, PRN, PRN Blood Glucose Results, Start date: 04/08/17 16:41:00 TURN MACHINE OPERATOR, Duration: 30 day, Stop date: 05/08/17 16:40:00 TURN MACHINE OPERATOR carvedilol 2016-05 No 25 mg = 1 Me moria 25 mg oral 1-30 tab, PO, l tablet 20:52: BID, # 180 Jessica nn 00 tab, 0 Refill(s) Golytely 2016-05 No Notes: Memoria -13 (polyethyl l 19:56: irina glycol Noel 00 electrolyt e solution 4 Liter bottle) (Same as: Golytely, Colyte) Acetaminoph 2016-05 No Notes: Do M [...] ia -11 (Same as: l 23:00: Norvasc) Noel Potassium 2016-05 No Notes: Memori a Chloride -11 (Same as: l 18:04: K-Dur 20) Rowdy "Do Not Crush" With food and full glass of water tramadol 2016-05 No Notes: Not Mem oria hydrochlori -11 to exceed l de 50 MG 16:41: 400mg/day. Her greenwood Oral Tablet 00 (Same As: Ultram) Tylenol 2016-05 No Notes: Do Memor ia -11 not exceed l 00:51: 4 gm/day. Rowdy 00 (Same as: Tylenol) Protonix 2016-05 No Notes: Memoria 1-10 Tablet l 17:44: should not Noel 00 be chewed or crushed. (Same as: Protonix) Enoxaparin 2016-05 No Notes: Memor ia 05-18 Nurse to l 19:30: ensure Rowdy 00 documentat ion of patient education per anticoagul ation policy. (Same as: Lovenox) Coumadin 2016-05 No Notes: Memoria 05-18 Nurse to l 19:05: ensure Rowdy 00 documentat ion of patient education per anticoagul ation policy. Avoid large intake of vitamin-K containing foods diet. (Same As: Coumadin) WASTE: F/P - P Waste Black; E - P Waste Black Potassium 2016-05 No Notes: Memori a Chloride 05-18 (Same as: l 16:51: K-Dur 20) Rowdy 00 "Do Not Crush" With food and [...] Total Volume: 250, Start Date: 03/17/17 11:37:00 TURN MACHINE OPERATOR, Duration: 30 day, Stop date: 04/16/17 11:36:00 TURN MACHINE OPERATOR, Replace Every: 24 hr bivalirudin 2016-05 No 250 mg, Mem oria 50 MG/ML 08 250 mL, l Injectable 17:35: Rate: Pankaj n Solution 00 Start at 0.05 mg/kg/hr, Dosing Weight 147.909, kg, Route: IV, Total Volume: 250, Start Date: 03/17/17 11:35:00 TURN MACHINE OPERATOR, Duration: 30 day, Stop date: 04/16/17 11:34:00 TURN MACHINE OPERATOR, Replace Every: 24 hr Losartan 2016-05 No Notes: Memoria 1-08 (Same as: l 15:00: Cozaar) Rowdy 00 Furosemide 2016-05 No Notes: Memor ia 1-08 (Same as: l 15:00: Lasix) Noel May cause GI upset. Give with food or milk. carvedilol 2016-05 No Notes: Memor ia -08 Give with l 15:00: food. Rowdy (Same As: Coreg) Allopurinol 2016-05 No Notes: Kaz david -08 (Same as: l 15:00: Zyloprim) Noel 00 Potassium 2016-05 No Notes: Memori a Chloride 05-17 (Same as: l 14:17: K-Dur 20) "Do Not Crush" With food and full glass of water Lovenox 2016-05 No Notes: Memoria 05-17 Nurse to l 12:00: ensure Rowdy 00 documentat ion of patient education per anticoagul ation policy. (Same as: Lovenox) Senokot 2016-05 No Notes: Memoria 05-17 (Same as: l 03:00: Senokot) Noel 00 tamsulosin 2016-05 No Notes: Memor ia -08 (Same As: l 03:00: Flomax) "Do Not Crush" SENOKOT-S 2016-05 No 2 tab, Memori a 05-17 Route: PO, l 03:00: Dosing Noel 00 Weight 147.909, kg, Bedtime, Start date: 03/16/17 21:00:00 TURN MACHINE OPERATOR, Duration: 30 day, Stop date: 04/14/17 21:00:00 TURN MACHINE OPERATOR atorvastati 2016-05 No Notes: Kaz david n 1-08 (Same as: l 03:00: Lipitor) Rowdy 00 200 ACTUAT 2016-05 No Notes: Memor ia Albuterol 08 Same as: l 0.09 00:45: Combivent Noel MG/ACTUAT / 00 Respimat Ipratropium WASTE: Riddle Aerosol - 0.018 Return to MG/ACTUAT Pharmacy Metered Dose Inhaler [Combivent] Streptococc 2016-05 No Notes: Kaz david us 1-08 Shake well l pneumoniae 00:35: prior to Her greenwood serotype 1 45 use (Same capsular as: antigen Prevnar diphtheria 13) [id number] protein conjugate vaccine / Streptococc us pneumoniae serotype 14 capsular antigen diphtheria [id number] protein conjugate vaccine / Streptococc us pneumoniae serotype 18C capsular antigen d carvedilol 2016-05 No 25 mg = 1 Me moria 25 mg oral 1-08 tab, PO, l tablet 00:28: BID, 0 Noel 00 Refill(s) Furosemide 2016-05 Yes 40 mg, PO, M emoria 1-08 BID, 0 l 00:28: Refill(s) Rowdy 00 tamsulosin 2016-05 Yes 0.4 mg, Kaz david -08 PO, l 00:28: Bedtime, 0 Noel 00 Refill(s) Losartan 2016-05 Yes 100 mg, Memori a -08 PO, Daily, l 00:28: 0 Refill(s) sodium 2016-05 No 1,000 mL, Memori a chloride 05-16 Rate: 75 l 0.9% 1000 23:43: ml/hr, Pankaj n ml INJ 00 Infuse 1,000 mL over: 13.3 hr, Route: IV, Dosing Weight 147.909 kg, Total Volume: 1,000, Start date: 03/16/17 17:43:00 TURN MACHINE OPERATOR, Duration: 30 day, Stop date: 04/15/17 17:42:00 TURN MACHINE OPERATOR Lovenox 2016-05 No Notes: Memoria 05-16 Nurse to l 21:10: ensure Rowdy 00 documentat ion of patient education per [facility] ation policy. (Same as: Lovenox) carvedilol 2015-05 Yes 25 mg = 1 Me moria 25 mg oral 1-02 tab, PO, l tablet 19:40: Q12H, # Rowdy 00 180 tab, 0 Refill(s) AMIODarone 2015-05 [...] 05-10 Route: l 0.9% IV 20:01: IVPB, Rowdy 00 Start date: 03/10/16 15:01:00 CDT, Duration: 30 day, Stop date: 04/09/16 14:00:00 TURN MACHINE OPERATOR, PRN Line Flush BD Normal 2015-05 No [...] Duration: 30 day, Stop date: 04/07/16 21:00:00 TURN MACHINE OPERATOR atorvastati 2015-05 No Notes: Kaz david n 05-10 (Same as: l 02:00: Lipitor) Alprazolam 2015-05 No Notes: Memor ia 0.5 MG Oral 05-10 With food l Tablet 02:00: or milk Rowdy 00 (Same as: Xanax) Senokot 2015-05 No Notes: Memoria 05-10 (Same as: l 02:00: Senokot) Rowdy Colchicine 2015-05 No 0.6 mg, 1 Me moria 0.6 MG Oral 05-10 tab, l Tablet 00:58: Route: PO, Jessica nn 00 Drug form: TAB, BID, Dosing Weight 132.727, kg, PRN Shortness of breath, Start date: 03/09/16 19:58:00 CDT, Duration: 30 day, Stop date: 04/08/16 19:57:00 TURN MACHINE OPERATOR 200 ACTUAT 2015-05 No Notes: Memor ia Albuterol 05-10 Same as: l 0.09 00:58: Combivent Noel MG/ACTUAT / 00 Respimat Ipratropium WASTE: Riddle Aerosol - 0.018 Return to MG/ACTUAT Pharmacy Metered Dose Inhaler [Combivent] acetaminoph 2015-05 No Notes: Kaz david en-hydrocod 05-10 (Same as: l one 325 00:08: [place] Rowdy mg-5 mg 00 325/5) Do oral tablet [...] l / 23:01: Duoneb) Noel Ipratropium 00 Riddle 0.167 MG/ML Inhalant Solution [DuoNeb] Nitroglycer No Notes: Kaz david in 0.4 MG 01-16 (Same l Sublingual 23:01: as:Nitroqu H ermann Tablet 00 ick, Nitrostat) "Do Not Crush" Sublingual tablet Enoxaparin No Notes: Memor ia 01-16 (Same as: l 23:00: Lovenox) Noel 00 Docusate No Notes: Memoria 01-16 (Same as: l 22:59: Colace) Rowdy 00 (Do Not Crush) Acetaminoph No Notes: Do M emoria en 01-16 not exceed l 22:59: 4 gm/day. Rowdy 00 (Same as: Tylenol) Ondansetron No Notes: Kaz david 01-16 (Same as: l 22:59: Zofran) Rowdy 00 MEDICATION WASTE Product Size: 4 mg Product Wasted: ___ mg Morphine No Notes: Memoria 01-16 (Same l 22:59: as:MORPhin Noel 00 e Sulfate) Acetaminoph No Notes: Kaz david en 325 MG / 01-16 (Same as: l Hydrocodone 22:59: [place] Jessica nn Bitartrate 00 325/5) Do 5 [...] PO, l Oral 22:38: BID, X 10 Rowdy Capsule , # 20 [Macrobid] cap, 0 Refill(s) Rocephin No Notes: Memoria -19 (Same As: l 22:12: Rocephin). Use with 100 mL NS and infuse over 30 min MEDICATION WASTE Product Size: 1000 mg Product Wasted: ___ mg Keflex 2014-05 No 500 mg, Memoria -16 Route: PO, l 22:14: Drug form: CAP, [...] Combivent Noel MG/ACTUAT / 00 Respimat Ipratropium Riddle 0.018 MG/ACTUAT Metered Dose Inhaler [Combivent] Alprazolam 2014-05 No Notes: Memor ia 2-13 With food l 07:30: or milk Rowdy (Same as: Xanax) nitroglycer 2014-05 No Notes: 1 Me moria in 2% 2-13 gram is l topical 07:12: approximat Herm pinky ointment 00 elio 1 inch of nitroglyce rin ointment (20 mg NTG per gram) (Same as:Nitro-B id) Furosemide 2014-05 Yes 40 mg = 1 Me moria 40 MG Oral 2-13 tab, PO, l Tablet 07:11: BID, 0 Rowdy Refill(s) SENOKOT-S 2014-05 Yes 2 tab, PO, [...] Memoria 2-13 TID, 0 l 07:11: Refill(s) Rowdy 00 Colchicine 2014-05 No 0.6 mg = [...] 06-22 Route: l 0.9% IV 07:09: IVPB, Noel 00 Start date: 04/21/15 1:09:00, Duration: 30 day, Stop date: 05/21/15 1:08:00, PRN Line Flush BD Normal 2014-05 No Notes: Memori a Saline 06-22 (Same as: l Flush 07:09: BD Rowdy 00 Posiflush) acetaminoph 2014-05 No Notes: Do M emoria en-codeine 06-22 not exceed l 300 mg-30 07:08: 4gm/day [...] / 02-02 (Same as: l Hydrocodone 21:30: [place] Jessica nn Bitartrate 00 325/5) Do 5 MG Oral not exceed Tablet 4gm/day of [[place] acetaminop 5/325] hen. Saline No Notes: Memoria Flush 0.9% 02-02 (Same as: l 21:18: BD Rowdy Posiflush) Barium No Notes: Memoria Sulfate 02-02 Same as l 21:18: Readi-Cat Noel 00 2 Morphine No Notes: Memoria 02-02 (Same l 21:18: as:MORPhin Rowdy 00 e Sulfate) Saline No Notes: Memoria Flush 0.9% 07-07 (Same as: l 02:05: BD Noel Posiflush) acetaminoph 2013-05 No Notes: Do M emoria en-codeine 06-02 not exceed l #3 14:55: 4gm/day of Rowdy 00 acetaminop hen. (Same as: Tylenol with Codeine # 3) Acetaminoph 2013-05 No Notes: Do M emoria en 06-02 not exceed l 14:55: 4 gm/day. Rowdy (Same as: Tylenol) gabapentin 2013-05 Yes 600 mg = 2 M emoria 300 MG Oral 05-30 cap, PO, l Capsule 19:56: TID, 0 Rowdy 00 Refill(s) Zinacef 2013-05 No Notes: Memoria 05-30 (Same As: l 18:00: Kefurox, Rowdy 00 Zinacef) Hydralazine 2013-05 No Notes: Kaz [...] (Same as: l MEQ 12:48: K-Dur 20) Noel Extended 00 "Do Not Release Crush" Tablet With food and full glass of water Bumex 2013-05 No Notes: Memoria 0-26 (Same As: l 17:43: Bumex) Rowdy 00 Neurontin 2013-05 No Notes: Memori a 0-26 (Same as: l 14:00: Neurontin) Noel 00 gabapentin 2013-05 Yes 400 mg = 1 M emoria 400 MG Oral 0-26 cap, PO, l Capsule 11:49: TID, # 90 Jessica nn 00 cap, 0 Refill(s) Pradaxa 2013-05 No Notes: DO Memor ia 0-25 NOT break, l 14:00: chew or Rowdy 00 open capsules for administra tion. 120 ACTUAT 2013-05 Yes 2 Memoria Budesonide 0-25 inhalation l 0.16 13:15: , Rowdy MG/ACTUAT / 00 INHALATION formoterol , Q12H, [...] Memoria 0-24 (Same as: l 22:00: Lasix) Rowdy 00 May cause GI upset. Give with food or milk. Diovan 2013-05 No Notes: Memoria 0-24 Same as l 18:17: Diovan Rowdy 00 homatropine 2013-05 No Notes: Kaz david -hydrocodon 0-24 (Same as: l e 15:10: Hycodan, Rowdy 00 Hydromet) 120 ACTUAT 2013-05 No Notes: [...] a 0.833 MG/ML 0-24 (Same as: l 15:05: Duoneb) Ipratropium 18 Riddle 0.167 MG/ML Inhalant Solution [DuoNeb] Lasix 2013-05 [...] Sulfate 0-22 (Same as: l 14:06: MgSO4) Hydralazine 2013-05 No Notes: Kaz david Hydrochlori 0-22 (Same as: l de 50 MG 02:00: Apresoline Her greenwood Oral Tablet 00 ) May interfere w/enteral feedings Take With Food Tessalon 2013-05 No Notes: Memoria Perles 0-21 (Same As: l 22:00: Tessalon Perles) "Do Not Crush" Budesonide 2013-05 No Notes: Memor ia 0.25 MG/ML 0-21 (Same As: l Inhalant 14:00: Pulmicort) Her greenwood Solution 00 [Pulmicort] Protonix 2013-05 No Notes: Memoria 0-21 Tablet l 14:00: should not be chewed or crushed. (Same as: Protonix) Allopurinol 2013-05 No Notes: Kaz david 0-21 (Same as: l 14:00: Zyloprim) Magnesium 2013-05 No 2 gm, 50 Kaz david Sulfate 0-21 mL, Route: l 12:19: IVPB, Drug form: INJ, ONCE, Dosing Weight [...] Route: PO, l 02:00: Drug form: Noel TAB, Bedtime, Dosing Weight 126.3, kg, Start [...] l / 02:00: Duoneb) Noel Ipratropium 00 Riddle 0.167 MG/ML Inhalant Solution [DuoNeb] Coreg 2013-05 No Notes: Memoria 0-21 Give with l 02:00: food. Rowdy 00 (Same As: Coreg) Acetylcyste 2013-05 No [...] david 0-20 (Same As: l 23:00: Rocephin). Rowdy 00 Use with 100ml NS mini-bag PLUS and infuse over 30 min Robitussin- 2013-05 No Notes: Kaz david AC oral 0-20 (Same As: l syrup 22:24: Robitussin Pankaj n 00 AC) Albuterol 2013-05 No Notes: Memori a 0.833 MG/ML 0-20 (Same as: l / 22:24: Duoneb) Rowdy Ipratropium 00 Riddle 0.167 MG/ML Inhalant Solution [DuoNeb] Acetylcyste 2013-05 No 600 mg, 3 M emoria ine 200 0-20 mL, Route: l MG/ML 22:10: PO, Drug Rowdy Inhalant 00 form: Solution SOLN, BID, Dosing Weight 126.3, kg, Priority: NOW, Start date: 02/26/14 17:10:00, Duration: 1 day, Stop date: 02/27/14 17:00:00 Amiodarone 2013-05 No 200 mg, Kaz david 0-20 Route: PO, l 22:00: Drug form: Rowdy 00 TAB, BID, Dosing Weight 126.3, kg, [...] 0-20 With food l 18:23: or milk Rowdy (Same as: Xanax) 200 ACTUAT 2013-05 No Notes: Memor ia Albuterol 0-20 Same as: l 0.09 18:23: Combivent Noel MG/ACTUAT / 00 Respimat Ipratropium Riddle 0.018 MG/ACTUAT Metered Dose Inhaler [Combivent] Cordarone 2013-05 No Notes: Memori a 0-20 (Same as: l 18:10: Cordarone) Rowdy Coreg 2013-05 No Notes: Memoria 0-20 Give with l 18:09: food. Noel (Same As: Coreg) atorvastati 2013-05 Yes 40 mg = 1 M emoria n 40 mg 0-20 tab, PO, l oral tablet 09:14: Bedtime, 0 Refill(s) carvedilol 2013-05 Yes 12.5 mg = [...] 0-20 Route: l 0.9% IV 07:42: IVPB, Rowdy 00 Start date: 02/26/14 2:42:00, Duration: 30 day, Stop date: 03/28/14 1:41:00, PRN Line Flush BD Normal 2013-05 No Notes: Memori a Saline 0-20 (Same as: l Flush 07:42: BD Noel 00 Posiflush) aspirin 2013-05 No Notes: Memoria 0-20 Take with l 07:34: food. Ondansetron 2013-05 No Notes: Kaz david 0-20 (Same as: l 07:34: Zofran) Noel Morphine 2013-05 No Notes: Memoria 0-20 (Same l 07:34: as:MORPhin Noel 00 e Sulfate) aspirin 2013-05 No Notes: Memoria 0-20 Take with l 05:28: food. Morphine 2013-05 No Notes: Memoria 0-20 (Same l 04:27: as:MORPhin Rowdy 00 e Sulfate) atorvastati Yes 40 mg = 2 M emoria n 20 mg 9-21 tab, PO, l oral tablet 13:00: Bedtime, # Rowdy 00 60 tab, 0 Refill(s) AMIODarone Yes 200 mg = 1 M emoria 200 mg oral 9-21 tab, PO, l tablet 13:00: BID, # 60 Pankaj n 00 tab, 0 Refill(s) dabigatran Yes 150 mg = 1 M emoria etexilate 9-21 cap, PO, l 150 MG Oral 13:00: BID, # 60 H ermann Capsule 00 cap, 0 [Pradaxa] Refill(s) carvedilol Yes 12.5 mg = Me moria 12.5 mg 9-21 1 tab, PO, l oral tablet 13:00: BID, # 60 H ermann 00 tab, 0 Refill(s) Docusate No Notes: Memoria Sodium 100 01-27 (Same as: l MG Oral 15:38: Colace) Rowdy Capsule 00 (Do Not [Colace] Crush) Coreg [...] 9-20 mL, Route: l 00:17: IVPB, Drug Rowdy 00 form: INJ, ONCE, Dosing Weight 119.801, [...] 01-26 NOT break, l 15:41: chew or Rowdy 00 open capsules for administra tion. Aspirin 81 No Notes: Do Me moria MG Enteric 01-26 not crush l Coated 14:00: or chew. Noel Tablet 00 (Same As: Ecotrin) gabapentin No Notes: Memor ia 400 MG Oral 01-26 (Same as: l Capsule 14:00: Neurontin) Herm pinky [Neurontin] 00 Digoxin No Notes: Memoria 01-26 Take on an l 14:00: Empty Noel 00 Stomach (Same as: Lanoxin) Coreg No Notes: Memoria 01-26 Give with l 14:00: food. Rowdy 00 (Same As: Coreg) Nitroglycer No Notes: [...] 01-26 With food l 11:55: or milk Noel (Same as: Xanax) Morphine No Notes: Memoria 01-26 (Same as: l 11:52: MORPhine Rowdy 00 Sulfate) Acetaminoph No Notes: Kaz david en 325 MG / 01-26 (Same as: l Hydrocodone 11:52: [place] Jessica nn Bitartrate 00 325/5) Do 5 MG Oral not exceed Tablet 4gm/day of [[place] acetaminop 5/325] hen. Lasix No Notes: Memoria 01-26 (Same as: l 11:51: Lasix) Rowdy 00 Zofran No Notes: Memoria 01-26 (Same as: l 11:51: Zofran) Rowdy 00 Tylenol No Notes: Do Memor ia 01-26 not exceed l 11:51: 4 gm/day. Rowdy 00 (Same as: Tylenol) Hydralazine No Notes: [...] 01-26 SOB, 0 l 0.09 10:22: Refill(s) Rowdy MG/ACTUAT / 00 Ipratropium Riddle 0.018 MG/ACTUAT Metered Dose Inhaler [Combivent] Digoxin No 125 Memoria 01-26 microgram, l 10:22: PO, Daily, 00 0 Refill(s) carvedilol No 25 mg = 1 Me moria 25 MG Oral 01-26 tab, PO, l Tablet 10:22: BID, # 180 Jessica nn [Coreg] 00 tab, 0 Refill(s) [place] Yes PO, PRN, Memoria 10/325 oral 3-13 Substituti l tablet 20:45: on Noel 32 Allowed, Maintenanc e Protonix 40 2012-0 Yes PO, Daily, Memoria mg oral 3-13 Substituti l enteric 20:45: on Allowed Herm pinky coated 03 tablet enalapril 5 2012-0 Yes PO, BID, Me moria mg oral 3-13 Substituti l tablet 20:44: on Allowed Jessica nn 18 Coumadin 4 2012- Yes PO, Daily, M emoria mg oral 3-13 Substituti l tablet 20:43: on Allowed Jessica nn 21 Omnipaque Yes Arnaldo R 100 mL, M emoria 300 3-04 Morrison 400 ml/hr, l 18:00: Route: IV, Rowdy Drug Form: SOLN, ONCE, Start date: 07/11/12 12:00:00, Stop date: 07/11/12 12:00:00 Omnipaque Yes Arnaldo R 100 mL, M emoria 300 3-04 Morrison 400 ml/hr, l 17:40: Route: IV, Rowdy Drug Form: SOLN, ONCE, Start date: 07/11/12 11:40:00, Stop date: 07/11/12 11:40:00 Neurontin 2011- No Bhagwat 600 mg, 2 Memoria 0-20 [...] 00:50: m Catalan Route: PO, Herm pinky Drug form: TAB, Daily, Start date: 02/26/12 [...] moria 0-20 [place] tab, l 00:44: m Ctaalan Route: PO, Herm pinky 00 Drug form: [...] Route: Noel 00 SUB-Q, Drug form: INJ, [id number], Start date: 02/26/12 1:00:00, Duration: 30 day, [...] Duration: 30 day, Stop date: 03/26/12 23:44:00 [place] Yes Steffi 1 tab, PO, Kaz david [...] or without foodTake with or without food [place] 5/325 No Steffi 1 tab, Me moria oral tablet 30 Randee Route: PO, l 21:00: Judith-Pr Drug [...] l units/mL 21:00: Francisco Javier mL, Route: Rowdy injectable 00 SUB-Q, solution Drug form: INJ, Q8H, Start date: 12/05/11 16:00:00, Duration: 30 day, Stop date: 01/04/12 8:00:00 senna No Iva Pankaj 8.6 mg, 1 M emoria 12-04 tab, l 14:00: Route: PO, Noel Drug Form: TAB, BID, Start date: 12/05/11 9:00:00, Duration: 30 day, Stop date: 01/03/12 17:00:00 Colace 100 No Iva Pankaj 100 mg, 1 Memoria mg oral 12-04 cap, l capsule 14:00: Route: PO, Herm pinky Drug form: CAP, BID, Start date: 12/05/11 [...] Lovy mL, Route: l 10:00: IVPB, Drug Rowdy 00 form: INJ, ONCE, Start date: 12/05/11 [...] 0.25 mL, l 04:51: Francisco Javier Route: Rowdy 00 IVP, Drug form: INJ, Q5Min, PRN Pain Score 4-6, Start date: 12/04/11 23:51:00, Duration: 5 doses or times, Stop date: Limited # of times naloxone No Rhea 0.04 mg, Kaz david 12-04 Ana 0.1 mL, l 04:51: Francisco Javier Route: Rowdy 00 IVP, Drug form: INJ, Q2MIN, PRN [...] 12-04 Lexie 0.1 mL, l 04:51: Route: Noel [...] 2011- No Adan 10 unit, Me moria - Lovy 0.1 mL, l 22:30: Route: Noel 00 SUB-Q, Drug form: INJ, ONCE, Start date: 12/03/11 17:30:00, Stop date: 12/03/11 17:30:00 Humulin R 2011-0 No Adan 7 unit, Mem oria 100 7-26 Lovy 0.07 mL, l units/mL 22:20: Route: Rowdy injectable 00 SUB-Q, solution Drug form: SOLN, [...] No Adan 4 unit, Mem oria 100 7- Lovy 0.04 mL, l units/mL 22:17: Route: Rowdy injectable 00 SUB-Q, solution Drug form: SOLN, [...] No Adan 1 unit, Mem oria 100 12-02 Lovy 0.01 mL, l units/mL 22:15: Route: Rowdy injectable SUB-Q, solution Drug form: SOLN, Sliding Scale, [...] insulin No Adan 10 unit, Kaz david isophane-[employer] 12-02 Lovy 0.1 mL, l H 17:38: Route: Rowdy 00 SUB-Q, Drug form: INJ, ONCE, Start date: 12/03/11 12:38:00, Stop date: 12/03/11 12:38:00 methylPREDN No Adan 60 mg, 1.5 Memoria ISolone 7-26 Lovy mL, Route: l 00:30: IV, Drug Noel 00 form: INJ, Daily, Start date: 12/02/11 19:30:00, Duration: 2 doses or times, Stop date: 12/03/11 9:00:00 torsemide 2011-0 No Adan 10 mg, 1 Me moria 7-25 Lovy tab, l 14:00: Route: PO, Rowdy 00 Drug form: TAB, Daily, Start date: [...] 7-25 Lovy tab, l 14:00: Route: PO, Rowdy 00 Drug form: ECTAB, Daily, Start date: [...] 7-25 Lovy tab, l 02:00: Route: PO, Rowdy 00 Drug form: TAB, QPM, Start date: [...] Duration: 30 day, Stop date: 12/31/11 19:20:00 [place] 0 No Steffi 1 tab, Memoria 10/325 [...] ermann 28 tab, Substituti on Allowed, TAB [place] 0 No Steffi 1 tab, PO, Kaz david 10/325 oral 7-24 Randee Q6H, PRN, l tablet 22:26: Judith-Pr 24 tab, He rmann 11 ashad for pain, Substituti on Allowed, Soft Stop pantoprazol No Adan 40 mg, 1 Memoria e 40 mg 7-24 Lovy tab, PO, l oral 22:24: Daily, 30 Rowdy enteric 40 tab, coated Substituti tablet on [...] tab, PO, l tablet 18:12: BID, 60 Rowdy 14 tab, 1, 1, Substituti on Allowed, TAB [place] 5/325 Yes Yury R 1 tab, PO, [...] tab, PO, l tablet 18:03: Q12H, 26 Rowdy 19 tab, Substituti on Allowed, TAB Cipro No Yury R 400 mg, Mem oria 4-20 Anderson 200 mL, l 02:00: Route: Noel 00 IVPB, Drug form: INJ, Q12H, Start date: 08/27/11 21:00:00, Duration: 30 day, Stop date: 09/26/11 9:00:00 Flagyl No Yury R 500 mg, Me moria 4-19 Anderson 100 mL, l 21:00: Route: IVPB, Drug form: INJ, Q8H, Start date: 08/27/11 16:00:00, Duration: 30 day, Stop date: 09/26/11 8:00:00 Lyrica 2011-0 No [facility] Anderson [facility], l 14:00: Route: PO, [...] 30 day, Stop date: 09/25/11 17:00:00 Coreg 2011-0 No [facility] 3[facility]125 [facility] Anderson [facility] tab, l 14:00: Route: PO, Drug form: TAB, BID, Start date: 08/27/11 9:00:00, Stop date: 09/25/11 17:00:00 Protonix No Arnaldo R 40 mg, [facility] Morrison tab, l 14:00: Route: PO, Drug form: ECTAB, Daily, Start date: 08/27/11 9:00:00, Duration: 30 day, Stop date: 09/25/11 9:00:00 Visipaque 2011- Yes Jun[facility]000 mg, [facility] Abdulaziz [facility] mL, l 13:33: Cunningham Route: IVP, Drug form: INJ, ONCE, Start date: 08/27/11 8:33:00, Stop date: 08/27/11 8:33:00 sotalol 2011-0 No Yury R 80 mg, 1 Memoria 4-19 Anderson tab, l 02:40: Route: PO, Rowdy 00 Drug form: TAB, BID, Start date: [...] Duration: 30 day, Stop date: 09/25/11 19:54:00 [place] 5/325 2011- No Yury R 1 tab, Memoria oral tablet 4-19 Justin Route: PO, l 00:55: Drug Form: Noel 00 TAB, Q4H, PRN Pain, Start date: 08/26/11 19:55:00, Duration: 30 day, Stop date: 09/25/11 19:54:00 insulin 2011-0 No Yury R 4 unit, M emoria aspart 4-19 Anderson 0.04 mL, l 00:38: Route: Noel 00 SUB-Q, Drug form: SOLN, Bedtime, PRN Blood Glucose Results, Start date: 08/26/11 19:38:00, Duration: 30 day, Stop date: 09/25/11 19:37:00 Dextrose 2011- No Yury R 12.5 gm, Memoria 50% Syringe -19 Anderson 25 mL, l 00:38: Route: Noel 00 IVP, Drug Form: INJ, PRN, PRN Blood Glucose Results, Start date: 08/26/11 19:38:00, Duration: 30 day, Stop date: 09/25/11 19:37:00 glucagon 2011- No Yury R 1 mg, Me moria 4-19 Anderson Route: IM, l 00:38: Drug form: Rowdy 00 PDR/INJ, PRN, PRN Blood Glucose Results, [...] No Arnaldo R 15 mL, Memoria Posiflush -18 Morrison Route: l SF 22:34: IVP, Drug Form: INJ, PRN, PRN Line Flush, Start date: 08/26/11 17:34:00, Duration: 30 day, Stop date: 09/25/11 17:33:00 Jantoven 4 No 4 mg, 1 Kaz david mg oral 4-18 tab, PO, l tablet 22:13: QPM, 30 Rowdy 52 tab, Substituti on Allowed, TAB Lyrica 75 2011- Yes Yury R 75 mg, 1 Memoria mg oral 4-18 Anderson cap, PO, l capsule 22:13: Daily, 90 Jessica nn 13 cap, Substituti on Allowed, CAP sotalol 80 Yes Yury R 80 mg, 1 Memoria mg oral 4-18 Anderson tab, PO, l tablet 22:12: BID, 180 Rowdy 43 tab, Substituti on Allowed, TAB omeprazole [...] 4-18 Morrison tab, l 22:03: Route: PO, Drug form: TAB, Q4H, PRN Pain, Start date: 08/26/11 17:03:00, Duration: 30 day, Stop date: 09/25/11 17:02:00 Sodium 2011- No Arnaldo R 1,000 mL, Me moria Chloride 4-18 Morrison Rate: 70 l 0.9% IV 21:59: ml/hr, Noel 1,000 mL 00 Infuse over: 14.3 hr, Route: IV, Dosing Weight 129.091 kg, Total Volume: 1,000, Start date: 08/26/11 16:59:00, Duration: 30 day, Stop date: 09/25/11 16:58:00 Demadex 2012-0 No Oscar 10 mg, 1 Kaz david 2-28 Nien-Diane tab, l 15:00: Darian Route: PO, Rowdy 00 Drug form: TAB, Daily, Start date: 07/07/11 9:00:00, Duration: 30 day, Stop date: 08/05/11 9:00:00 Glucophage 2012-0 No Oscar 500 mg, 1 Memoria 2-28 Nien-Diane tab, l 15:00: Darian Route: PO, Rowdy 00 Drug form: TAB, Daily, Start date: 07/07/11 9:00:00, Duration: 30 day, Stop date: 08/05/11 9:00:00 Xanax 2011-0 No Evaristo J 0.5 mg, 1 Kaz david -28 Hoberman tab, l 03:00: Route: PO, Rowdy 00 Drug form: TAB, Bedtime, Start date: 07/06/11 21:00:00, Duration: 30 day, Stop date: 08/04/11 21:00:00 Lipitor 2011-0 No Oscar 10 mg, 1 Kaz david 2-28 Nien-Diane tab, l 03:00: Darian Route: PO, Rowdy 00 Drug form: TAB, Bedtime, Start date: [...] Duration: 30 day, Stop date: 08/04/11 17:00:00 Arrington 3-6-9 2011- No Oscar Arrington Mem oria 1200 mg 2-27 Nien-Diane 3-6-9 1200 l (own med) 23:00: Darian mg (own Jessica nn med), 1,200 mg, Drug form: MISC, Route: PO, TID, 07/06/11 17:00:00, Duration: 30 day, Stop date: 08/05/11 13:00:00 Protonix No Evaristo J 40 mg, 1 Me moria 07-06 Hoberman tab, l 22:30: Route: PO, Drug form: ECTAB, Before Dinner, Start date: 07/06/11 16:30:00, Duration: 30 day, Stop date: 08/04/11 16:30:00 K-Dur 10 No Oscar 10 mEq, 1 Me moria - Nien-Diane tab, l 20:44: Darian Route: PO, Drug form: ERTAB, ONCE, Start date: 07/06/11 14:44:00, Stop date: 07/06/11 14:44:00 Neurontin 2011- No Oscar 600 mg, 2 M emoria - Nien-Diane cap, l 19:32: Darian Route: PO Drug form: CAP, TID, Start date: 07/06/11 13:32:00, Duration: 30 day, Stop date: 08/05/11 13:00:00 Lasix No Oscar 40 mg, 1 Memori a - Nien-Diane tab, l 19:31: Darian Route: PO, Drug form: TAB, Daily, Start date: 07/06/11 13:31:00, Duration: 30 day, Stop date: 08/05/11 9:00:00 Phenergan 2011-0 No Oscar 25 mg, 1 Me moria -27 Nien-Diane tab, l 19:30: Darian Route: PO, [...] day, Stop date: 08/04/11 17:00:00 K-Dur 10 0 No Evaristo J 10 mEq, 1 M [...] 08/05/11 5:40:00 NovoLog No Oscar 10 unit, Akz david FlexPen 07-06 Nien-Diane 0.1 mL, l 10:41: Darian Route: Rowdy SUB-Q, Drug form: SOLN, Sliding Scale, PRN Blood Glucose Results, Start date: 07/06/11 4:41:00, Duration: 30 day, Stop date: 08/05/11 5:40:00 lactulose No Oscar 20 gm, 30 M emoria 07-06 Nien-Diane mL, Route: l 10:41: Darian PO, Drug Rowdy 00 form: SYRP, Daily, PRN Constipati on, Start date: 07/06/11 4:41:00, Duration: 30 day, Stop date: 08/05/11 4:40:00 Restoril No Oscar 30 mg, 1 Mem oria 2-27 Nien-Diane cap, l 10:41: Darian Route: PO, Noel 00 Drug form: CAP, Bedtime, PRN Sleep, Start date: 07/06/11 4:41:00, Duration: 30 day, Stop date: 08/05/11 4:40:00 Tylenol No Oscar 650 mg, 2 Mem oria - Nien-Diane tab, l 10:40: Darian Route: PO, Drug form: TAB, Q4H, PRN Pain/Fever , Start date: 07/06/11 4:40:00, Duration: 30 day, Stop date: 08/05/11 4:39:00 Sodium No Oscar 250 mL, Memori a Chloride 07-06 Ni-Diane Route: l 0.9% IV 08:53: Darian IVPB, PRN, Herm Line Flush, Start date: 07/06/11 2:53:00, Duration: 30 day, Stop date: 08/05/11 3:52:00 BD Normal No Oscar 10 mL, Kaz david Saline 07-06 Route: l Flush 08:53: Darian IVP, Drug Form: INJ, PRN, PRN Line Flush, Start date: 07/06/11 2:53:00, Duration: 30 day, Stop date: 08/05/11 3:52:00 morphine No Evaristo J 4 mg, Memor ia Sulfate 07-06 Hoberman Route: l 04:23: IVP, ONCE, Priority: STAT, Start date: 07/05/11 22:23:00, Stop date: 07/05/11 22:23:00 Niaspan ER Yes 500 mg, 1 Me moria 500 mg oral 07-06 tab, PO, l tablet, 04:07: BID, 60 Noel extended 13 tab, release Substituti on Allowed warfarin 3 2012-0 Yes 3 mg, 1 Kaz david mg oral -27 tab, PO, l tablet 04:06: Daily, 30 Pankaj n 14 tab, Substituti on Allowed, TAB ALPRAZOLam 0 Yes 0.5 mg, Kaz david - PO, PRN, l 04:04: PRN, Noel 58 anxiety, Substituti on Allowed promethazin 0 Yes 25 mg, 1 Me moria e 25 mg 2- tab, PO, l oral tablet 04:04: Q12H, PRN, Noel 01 15 tab, Nausea, Substituti on Allowed metolazone 0 Yes 5 mg, 1 Kaz david 5 mg oral - tab, PO, l tablet 04:03: Daily, 30 Pankaj n 04 tab, Substituti on Allowed, TAB glyBURIDE Yes 2.5 mg, 1 Mem oria 2.5 mg oral 07-06 tab, PO, l tablet 04:01: TID, 30 Noel 59 tab, Substituti on Allowed, TAB nitroglycer No Evaristo J 1 inch, Memoria in 2% 07-06 Hoberman Route: l ointment 03:43: TOP, Drug Herm Form: OINT, ONCE, STAT, Start date: 07/05/11 [...] J 5 ml, Memoria Flush 0.9% 07-06 Hoberman Route: l 03:43: IVP, Drug Form: INJ, PRN, PRN Line Flush, Start date: 07/05/11 21:43:00, Duration: 24 hr, Stop date: 07/06/11 21:42:00 Coumadin 2010-05 No Desean 10 mg, 1 Kaz david 07-06 Jagdishcha tab, l 23:00: ndra Catrachito Route: PO, He rm Drug form: TAB, ONCE, Start date: 05/05/11 17:00:00, Stop date: 05/05/11 17:00:00 Coumadin 2010-05 No Desean 10 mg, 1 Kaz david 07-06 Jagdishcha tab, l 20:58: ndra Catrachito Route: PO, He Drug form: TAB, ONCE, Start date: 05/05/11 14:58:00, Stop date: 05/05/11 14:58:00 Coumadin 2010-05 No Yury R 10 mg, 1 Memoria 07-05 Anderson tab, l 23:00: Route: PO, Drug form: TAB, ONCE, Start date: 05/04/11 17:00:00, Stop date: 05/04/11 17:00:00 Coreg 2010-05 No Kiritkumar 3.125 mg, M emoria 07-05 A Morrison 1 tab, l 23:00: Route: PO, Drug form: TAB, BID, Start date: 05/04/11 17:00:00, Duration: 30 day, Stop date: 06/03/11 9:00:00 Coumadin 2010-05 No Yury R 10 mg, 1 Memoria -25 Anderson tab, l 23:00: Route: PO, Drug form: TAB, ONCE, Start date: 05/03/11 17:00:00, Stop date: 05/03/11 17:00:00 Carafate 2010-05 No Desean 1 gm, 1 Memor ia - Jagdishcha tab, l 23:00: ndra Catrachito Route: PO, Drug form: TAB, BID, Start date: 05/02/11 17:00:00, Duration: 30 day, Stop date: 06/01/11 9:00:00 Coreg 2010-05 No Yury R 3.125 mg, M emoria 2-24 Anderson 1 tab, l 23:00: Route: PO, Rowdy 00 Drug form: TAB, BID, Start date: 05/02/11 [...] l 14:00: Hughes SUB-Q, Drug form: INJ, [id number], Start date: 04/30/11 8:00:00, Duration: 30 day, Stop date: 05/29/11 20:00:00 Zofran 2010-05 No Kiritkumar 2 mg, 1 Me moria 2-21 A Morrison mL, Route: l 20:35: IVP, Drug form: INJ, Q8H, PRN Nausea, Start date: 04/29/11 14:35:00, Duration: 30 day, Stop date: 05/29/11 14:34:00 NovoLog 2010-05 No Yury R 5 unit, M emoria FlexPen 2-21 Anderson 0.05 mL, l 19:22: Route: Rowdy 00 SUB-Q, Drug form: SOLN, Sliding Scale, [...] Justin Route: l Flush 19:13: IVP, Drug Form: INJ, PRN, PRN Line Flush, Start date: 04/29/11 13:13:00, Duration: 30 day, Stop date: 05/29/11 13:12:00 Coumadin 2010-05 No Yury R 2.5 mg, 1 Memoria 06-30 Justin tab, l 03:00: Route: PO, Noel Drug form: TAB, Bedtime, Start date: 04/28/11 21:00:00, Duration: 30 day, Stop date: 05/27/11 21:00:00 Lovenox 2010-05 No Yury R 80 mg, 0.8 Memoria 06-30 Justin mL, Route: l 02:00: SUB-Q, Noel Drug form: INJ, [id number], Start date: 04/28/11 20:00:00, Duration: 30 day, Stop date: 05/28/11 8:00:00 Protonix 2010- No Kiritkumar 40 mg, 1 Memoria 2-20 A Morrison tab, l 22:30: Route: PO, Rowdy 00 Drug form: ECTAB, Before Dinner, Start [...] 00 Drug form: TAB, Q12H, Start date: 04/28/11 9:00:00, Duration: 30 day, Stop date: 05/27/11 21:00:00 Lasix 2010-05 No Kiritkumar 40 mg, 1 Me moria 2-20 A Morrison tab, l 15:00: Route: PO, Rowdy 00 Drug form: TAB, Daily, Start date: 04/28/11 9:00:00, Duration: 30 day, Stop date: 05/27/11 9:00:00 Xanax 2010-05 No Kiritkumar 0.5 mg, 1 M emoria 2-20 A Morrison tab, l 15:00: Route: PO, Noel Drug form: TAB, Daily, Start date: 04/28/11 [...] A Morrison cap, l 15:00: Route: PO, Rowdy 00 Drug form: CAP, TID, Start date: 04/28/11 9:00:00, Duration: 30 day, Stop date: 05/27/11 17:00:00 morphine 2010-05 No Yury R 2 mg, 0.4 Memoria Sulfate 2-20 Anderson mL, Route: l 13:31: IV, Drug Rowdy 00 form: INJ, ONCE, Start date: 04/28/11 7:31:00, Stop date: 04/28/11 7:31:00 morphine 2010-05 No Kiritkumar 2 mg, 0.4 Memoria Sulfate 2-20 A Morrison mL, Route: l 10:44: IV, Drug Noel 00 form: INJ, ONCE, Start date: 04/28/11 4:44:00, Stop date: 04/28/11 4:44:00 Phenergan 2010-05 No Kiritkumar 25 mg, 1 Memoria 2-20 A Morrison tab, l 08:13: Route: PO, Rowdy Drug form: TAB, Q6H, PRN Nausea, Start [...] Morrison mL, Route: l 07:00: SUB-Q, Noel Drug form: INJ, [id number], Start date: 04/28/11 1:00:00, Duration: 30 day, Stop date: 05/27/11 13:00:00 diltiazem 2010-05 No Kiritkumar 100 mL, Memoria 100 mg + 2-20 A Morrison Rate: l Sodium 06:36: titrate, Noel Chloride 00 Route: IV, 0.9% IV 100 Total mL Volume: 100, Start date: 04/28/11 0:36:00, Duration: 30 day, Stop date: 05/28/11 0:35:00 glucagon 2010-05 No Yury R 1 mg, Me moria 2-20 Anderson Route: IV, l 06:35: Drug form: Rowdy 00 PDR/INJ, PRN, PRN Blood Glucose Results, Start date: 04/28/11 0:35:00, Duration: 30 day, Stop date: 05/28/11 0:34:00 Dextrose 2010-05 No Yury R Route: M emoria 50% in 2-20 Anderson IVP, PRN, l Water IV 06:35: Blood Noel 00 Glucose Results, Start date: 04/28/11 0:35:00, [...] oral 0-11 Turcios tab, l tablet 15:36: [place] Route: PO, Her greenwood 00 Drug form: TAB, [id number], Priority: NOW, Start date: 02/17/11 10:36:00, Duration: 30 day, Stop date: 03/18/11 10:36:00 Avelox 400 2010-05 Yes Annette 400 mg, 1 Me moria mg oral 0-11 [place] tab, PO, l tablet 15:31: [place] Daily, 7 Jessica nn 58 tab, Substituti on Allowed, TAB Protonix 2010-05 No Annette 40 mg, 1 Memor ia 0-11 [place]ios tab, l 12:30: [place] Route: PO, Jessica nn 00 Drug form: ECTAB, Before Breakfast, Start date: 02/17/11 7:30:00, Duration: 30 day, Stop date: 03/18/11 7:30:00 azithromyci 2010-05 No Annette 500 mg, 2 M emoria n 500 mg 0-11 [place] tab, l oral tablet 04:00: [place] Route: PO, Noel 00 Drug form: TAB, [...] Memoria 0-10 [place] mL, Route: l 16:43: [place] IVP, Drug Pankaj n 00 form: INJ, Q4H, PRN Elevated BP, Start date: 02/16/11 11:43:00, Duration: 30 day, Stop date: 03/18/11 11:42:00 Lopressor 2010-05 No Annette 5 mg, 5 Memor ia 0-10 Turcios mL, Route: l 16:43: [place] IVP, Drug Pankaj n 00 form: INJ, Q6H, PRN Elevated BP, Start date: 02/16/11 11:43:00, Duration: 30 day, Stop date: 03/18/11 11:42:00 Visipaque 2010-05 No Annette 48,000 mg, Me moria 0-10 [place]ios 150 mL, l 14:05: [place] Route: IV, Jessica nn 00 Drug form: INJ, ONCE, Start date: 02/16/11 9:05:00, Stop date: 02/16/11 9:05:00 potassium 2010-05 No Annette 10 mEq, 1 Mem oria chloride 0-10 [place]ios tab, l 14:00: [place] Route: PO, Jessica nn 00 Drug form: ERTAB, Daily, Start date: 02/16/11 9:00:00, Duration: 30 day, Stop date: 03/17/11 9:00:00 glyBURIDE 2010-05 No Annette 5 mg, 1 Memor ia 0-10 [place]ios tab, l 14:00: [place] Route: PO, Jessica nn 00 Drug form: TAB, Daily, Start date: 02/16/11 9:00:00, Duration: 30 day, Stop date: 03/17/11 9:00:00 Lasix 40 mg 2010-05 No Annette 40 mg, 2 Me moria oral tablet 0-10 Turcios tab, l 14:00: [place] Route: PO, Jessica nn 00 Drug form: TAB, Daily, Start date: 02/16/11 9:00:00, Duration: 30 day, Stop date: 03/17/11 9:00:00 morphine 2010-05 No Crystal 2 mg, 0.4 M emoria Sulfate 0-10 Kristen mL, Route: l 04:21: Elvia IVP, Drug Rowdy 00 form: INJ, Q3H, PRN Pain, Start date: 02/15/11 23:21:00, Duration: 30 day, Stop date: 03/17/11 23:20:00 predniSONE 2010-05 No Annette 50 mg, Memor ia 0-09 [place] Route: PO, l 22:00: [place] Drug form: Jessica nn 00 TAB, BID, Start date: 02/15/11 17:00:00, Duration: 30 day, Stop date: 03/17/11 9:00:00 gabapentin 2010-05 No Annette 600 mg, 2 Me moria 600 mg oral 0-09 [place]ios cap, l tablet 18:00: [place] Route: PO, Her greenwood 00 Drug form: CAP, TID, Start date: 02/15/11 13:00:00, Duration: 30 day, Stop date: 03/17/11 9:00:00 aspirin 81 2010-05 Yes 1 tab, PO, M emoria mg tablet, 0-09 Daily, 0 l enteric 16:58: tab, Rowdy coated 50 Substituti on Allowed, ECTAB glyBURIDE 5 2010-05 Yes Annette 1 tab, PO, Memoria mg oral 0-09 [place] Daily, 30 l tablet 16:58: [place] tab Noel 30 Substituti on Allowed, TAB doxycycline 2010-05 No 1 cap, PO, Memoria hyclate 100 0-09 BID, cap, l mg oral 16:58: Substituti Herm pinky capsule 11 on Allowed predniSONE 2010-05 Yes Annette 1 tab, PO, M emoria 50 mg oral 0-09 Turcios BID, tab, l tablet 16:57: [place] Substituti Her greenwood 48 on Allowed, TAB gabapentin 2010-05 Yes Annette 1 tab, PO, M emoria 600 mg oral 0-09 [place]ios TID, 270 l tablet 16:57: [place] tab Noel 13 Substituti on Allowed Klor-Con 2010-05 Yes Annette 1 tab, PO, Mem oria M10 oral 0-09 [place] Daily, l tablet, 16:56: [place] tab Rowdy extended 57 Substituti release on Allowed, ERTAB lisinopril 2010-05 Yes 1 tab, PO, M emoria 10 mg oral 0-09 BID, 30 l tablet 16:56: tab Rowdy 17 Substituti on Allowed, TAB Lasix 40 mg 2010-05 Yes Annette 1 tab, PO, Memoria oral tablet 0-09 [place] Daily, 30 l 16:56: [place] tab Rowdy 00 Substituti on Allowed, TAB Coreg 12.5 2010-05 Yes 1 tab, PO, M emoria mg oral 0-09 BID, 60 l tablet 16:55: tab Noel 44 Substituti on Allowed, TAB Zofran ODT [...] Route: l 16:00: [place] PRITCHARDPB, Noel 00 [id number], Start date: 02/15/11 11:00:00, Duration: 30 day, Stop date: 03/16/11 23:00:00 pantoprazol 2010-05 No Crystal 40 mg, M emoria e 0-09 Kristen Route: l 14:00: Elvia IVP, Drug Noel 00 form: INJ, Daily, Start date: 02/15/11 9:00:00, Duration: 30 day, Stop date: 03/16/11 9:00:00 Saline 2010-05 No Crystal 5 ml, Memoria Flush 0.9% 0- Kristen Route: l 14:00: Elvia IVP, Drug Rowdy 00 Form: INJ, Q12H, Start date: 02/15/11 [...] No Arnaldo R 40 mg, 2 Memoria 0- Morrison tab, l 14:00: Route: PO, Rowdy 00 Drug form: TAB, Daily, Start date: 02/15/11 9:00:00, Stop date: 03/16/11 9:00:00 lisinopril 2010-05 No Crystal 10 mg, 2 Memoria 0-09 Kristen tab, l 14:00: [place]via Route: PO, Pankaj n 00 Drug form: TAB, BID, Start date: 02/15/11 9:00:00, Duration: 30 day, Stop date: 03/16/11 17:00:00 DuoNeb 2010-05 No Crystal 3 ml, Memoria inhalation Kristen Route: l solution 05:00: Elvia INHALATION He rmann 00 , Drug Form: SOLN, Q6H, Start date: 02/15/11 0:00:00, Duration: 30 day, Stop date: 03/16/11 18:00:00 Neurontin 2010-05 No Annette 600 mg, 2 Mem oria 0 [place] cap, l 04:40: [place] Route: PO, Jessica nn 00 Drug form: CAP, Q8H, Start date: 02/14/11 23:40:00, Duration: 30 day, Stop date: 03/16/11 16:00:00 ceftriaxone 2010-05 No Arnaldo R 1 gm, M emoria 0 Morrison Route: l 04:00: IVPB, Noel 00 [id number], Start date: 02/14/11 23:00:00, Duration: 30 day, Stop date: 03/15/11 23:00:00 azithromyci 2010-05 No Crystal 500 mg, Memoria n 0 Kristen Route: l 04:00: Elvia IVPB, Rowdy 00 [id number], Start date: 02/14/11 23:00:00, Duration: 30 day, Stop date: 03/15/11 23:00:00 Vicodin 2010-05 No Crystal 1 tab, Memor ia 5/500 oral Kristen Route: PO, l tablet 03:13: Elvia [...] mL, Route: l 03:12: Elvia PO, Drug Rowdy 00 form: LIQ, Q4H, PRN Cough, Start [...] ml, Route: l 03:08: Elvia IVP, Drug Rowdy 00 Form: INJ, PRN, PRN Blood Glucose [...] l 03:05: [place]via Route: PO, Pankaj n Drug form: TAB, Q8H, PRN Nausea, Start [...] Mendez tab, l 03:04: Route: PO, Noel Drug form: TAB, Q12H, Priority: NOW, Start [...] 0-09 Forbes tab, l 01:28: Route: PO, Rowdy 00 Drug form: TAB, ONCE, Priority: STAT, Start date: 02/14/11 20:28:00, Stop date: 02/14/11 20:28:00 ondansetron 2010-05 No Abdon G 4 mg, 2 Memoria 0-09 Forbes mL, Route: l 00:31: IVP, Drug Rowdy 00 form: INJ, ONCE, Priority: STAT, Start [...] Diastolic (mm Hg) 2018-12-01 20:24:00 Mem orial Rowdy Temperature Oral (F) 2018-12-01 20:24:00 98.5 F [facility] Noel Heart Rate 2018-12-01 20:24:00 [facility] Rowdy Systolic (mm Hg) 2018-12-01 16:14:00 Kaz rial Noel Diastolic (mm Hg) 2018-12-01 16:14:00 Mem orial Rowdy Heart Rate 2018-12-01 16:14:00 [facility] Noel Respitory Rate 2018-12-01 16:14:00 Memori al Rowdy Temperature Oral (F) 2018-12-01 16:14:00 98.1 F [facility] Rowdy Systolic (mm Hg) 2018-12-01 13:27:00 Kaz rial Rowdy Diastolic (mm Hg) 2018-12-01 13:27:00 Mem orial Rowdy Respitory Rate 2018-12-01 12:23:00 Memori al Rowdy Heart Rate 2018-12-01 12:23:00 [facility] Noel Height 2018-12-01 09:32:00 193.04 cm [facility] Noel BMI Calculated 2018-11-30 04:11:00 Memori al Noel Weight 2018-11-30 04:11:00 [facility] Rowdy Height 2018-11-30 04:11:00 193.04 cm [facility] Noel Systolic (mm Hg) 2018-03-29 17:39:00 Akz rial Noel Diastolic (mm Hg) 2018-03-29 17:39:00 Mem orial Rowdy Respitory Rate 2018-03-29 17:39:00 Memori al Rowdy Heart Rate 2018-03-29 17:39:00 [facility] Noel Temperature Oral (F) 2018-03-29 17:39:00 97.5 F [facility] Noel Heart Rate 2018-03-29 13:52:00 [facility] Noel Respitory Rate 2018-03-29 13:52:00 Memori al Noel Systolic (mm Hg) 2018-03-29 13:52:00 Kaz rial Rowdy Diastolic (mm Hg) 2018-03-29 13:52:00 Mem orial Rowdy Temperature Oral (F) 2018-03-29 13:52:00 98.4 F [facility] Rowdy Weight 2018-03-29 12:08:00 [facility] Rowdy Systolic (mm Hg) 2018-03-29 09:30:00 Kaz rial Noel Diastolic (mm Hg) 2018-03-29 09:30:00 Mem orial Noel Heart Rate 2018-03-29 09:30:00 [facility] Noel Temperature Oral (F) 2018-03-29 09:30:00 98.3 F [facility] Noel Respitory Rate 2018-03-29 06:00:00 Memori al Noel BMI Calculated 2018-03-25 21:42:00 Memori al Rowdy Weight 2018-03-25 21:42:00 [facility] Rowdy Height 2018-03-25 21:42:00 193.04 cm [facility] Noel Temperature Oral (F) 2017-04-11 13:01:00 97.9 F [facility] Rowdy Systolic (mm Hg) 2017-04-11 13:01:00 Kaz rial Noel Diastolic (mm Hg) 2017-04-11 13:01:00 Mem orial Rowdy Respitory Rate 2017-04-11 13:01:00 Memori al Rowdy Heart Rate 2017-04-11 13:01:00 [facility] Rowdy Temperature Oral (F) 2017-04-11 10:00:00 98.2 F [facility] Noel Heart Rate 2017-04-11 10:00:00 [facility] Rowdy Systolic (mm Hg) 2017-04-11 10:00:00 Kaz rial Noel Diastolic (mm Hg) 2017-04-11 10:00:00 Mem orial Noel Respitory Rate 2017-04-11 10:00:00 Memori al Noel Systolic (mm Hg) 2017-04-11 06:00:00 Kaz rial Rowdy Diastolic (mm Hg) 2017-04-11 06:00:00 Mem orial Rowdy Heart Rate 2017-04-11 06:00:00 [facility] Rowdy Respitory Rate 2017-04-11 06:00:00 Memori al Rowdy Temperature Oral (F) 2017-04-11 06:00:00 98.2 F [facility] Noel Height 2017-04-08 21:30:00 193.04 cm [facility] Rowdy Weight 2017-04-08 21:30:00 [facility] Noel BMI Calculated 2017-04-08 21:30:00 Memori al Rowdy Temperature Oral (F) 2017-03-23 22:16:00 98.4 F [facility] Noel Heart Rate 2017-03-23 22:16:00 [facility] Noel Respitory Rate 2017-03-23 22:16:00 Memori al Rowdy Systolic (mm Hg) 2017-03-23 22:16:00 Kaz rial Rowdy Diastolic (mm Hg) 2017-03-23 22:16:00 Mem orial Rowdy Systolic (mm Hg) 2017-03-23 17:38:00 Kaz rial Noel Diastolic (mm Hg) 2017-03-23 17:38:00 Mem orial Rowdy Temperature Oral (F) 2017-03-23 17:38:00 98.2 F [facility] Noel Heart Rate 2017-03-23 17:38:00 [facility] Rowdy Respitory Rate 2017-03-23 17:38:00 Memori al Noel Heart Rate 2017-03-23 13:43:00 [facility] Noel Systolic (mm Hg) 2017-03-23 13:43:00 Kaz rial Rowdy Diastolic (mm Hg) 2017-03-23 13:43:00 Mem orial Noel Respitory Rate 2017-03-23 13:43:00 Memori al Rowdy Temperature Oral (F) 2017-03-23 13:43:00 98.4 F [facility] Rowdy BMI Calculated 2017-03-16 22:19:00 Memori al Rowdy Weight 2017-03-16 22:19:00 [facility] Noel Height 2017-03-16 22:19:00 193.04 cm [facility] Noel Weight 2017-03-16 18:16:00 [facility] Noel BMI Calculated 2017-03-16 18:16:00 Memori al Rowdy Height 2017-03-16 18:16:00 193.04 cm [facility] Rowdy Temperature Oral (F) 2016-03-11 18:06:00 97.9 F [facility] Noel Systolic (mm Hg) 2016-03-11 18:06:00 Kaz rial Rowdy Diastolic (mm Hg) 2016-03-11 18:06:00 Mem orial Noel Heart Rate 2016-03-11 18:06:00 [facility] Rowdy Respitory Rate 2016-03-11 18:06:00 Memori al Rowdy Systolic (mm Hg) 2016-03-11 12:58:00 Kaz rial Rowdy Diastolic (mm Hg) 2016-03-11 12:58:00 Mem orial Rowdy Respitory Rate 2016-03-11 12:58:00 Memori al Rowdy Temperature Oral (F) 2016-03-11 12:58:00 98.1 F [facility] Noel Heart Rate 2016-03-11 12:58:00 [facility] Rowdy Heart Rate 2016-03-11 09:18:00 [facility] Noel Temperature Oral (F) 2016-03-11 09:18:00 97.8 F [facility] Rowdy Respitory Rate 2016-03-11 09:18:00 [facility] Systolic (mm Hg) 2016-03-11 09:18:00 [facility] Diastolic (mm Hg) 2016-03-11 09:18:00 [facility] BMI Calculated 2016-03-09 19:03:00 [facility] Weight 2016-03-09 19:03:00 [facility] Height 2016-03-09 19:03:00 193.04 cm [facility] Respitory Rate 2016-01-18 13:00:00 [facility] Heart Rate 2016-01-18 13:00:00 [facility] Temperature Oral (F) 2016-01-18 13:00:00 98.7 F [facility] Systolic (mm Hg) 2016-01-18 09:06:00 [facility] Diastolic (mm Hg) 2016-01-18 09:06:00 [facility] Temperature Oral (F) 2016-01-18 09:06:00 98.2 F [facility] Heart Rate 2016-01-18 09:06:00 [facility] Respitory Rate 2016-01-18 09:06:00 [facility] Systolic (mm Hg) 2016-01-18 03:54:00 [facility] Diastolic (mm Hg) 2016-01-18 03:54:00 [facility] Temperature Oral (F) 2016-01-18 03:54:00 98.1 F [facility] Heart Rate 2016-01-18 03:54:00 [facility] Respitory Rate 2016-01-18 03:54:00 [facility] Weight 2016-01-18 01:05:00 [facility] BMI Calculated 2016-01-18 01:05:00 [facility] Height 2016-01-18 01:05:00 193.04 cm [facility] Diastolic (mm Hg) 2016-01-18 00:55:00 [facility] Systolic (mm Hg) 2016-01-18 00:55:00 [facility] Weight 2016-01-17 21:23:00 [facility] Heart Rate 2015-05-28 23:23:00 [facility] Temperature Oral (F) 2015-05-28 23:23:00 97.9 F [facility] Respitory Rate 2015-05-28 23:23:00 [facility] Systolic (mm Hg) 2015-05-28 23:23:00 [facility] Diastolic (mm Hg) 2015-05-28 23:23:00 [facility] Weight 2015-05-28 21:05:00 [facility] Temperature Oral (F) 2015-05-28 21:05:00 97.8 F [facility] Respitory Rate 2015-05-28 21:05:00 [facility] Heart Rate 2015-05-28 21:05:00 [facility] Systolic (mm Hg) 2015-05-28 21:05:00 [facility] Diastolic (mm Hg) 2015-05-28 21:05:00 [facility] Systolic (mm Hg) 2015-04-24 17:04:00 [facility] Diastolic (mm Hg) 2015-04-24 17:04:00 [facility] Respitory Rate 2015-04-24 17:04:00 [facility] Temperature Oral (F) 2015-04-24 17:04:00 97.7 F [facility] Heart Rate 2015-04-24 17:04:00 [facility] Systolic (mm Hg) 2015-04-24 14:20:00 [facility] Diastolic (mm Hg) 2015-04-24 14:20:00 [facility] Respitory Rate 2015-04-24 14:20:00 [facility] Temperature Oral (F) 2015-04-24 14:20:00 97.2 F [facility] Heart Rate 2015-04-24 14:20:00 [facility] Systolic (mm Hg) 2015-04-24 12:24:00 [facility] Diastolic (mm Hg) 2015-04-24 12:24:00 [facility] Respitory Rate 2015-04-24 12:24:00 [facility] Heart Rate 2015-04-24 12:24:00 [facility] Temperature Oral (F) 2015-04-24 00:30:00 97.7 F [facility] Weight 2015-04-21 07:11:00 [facility] Height 2015-04-21 07:11:00 187.96 cm [facility] BMI Calculated 2015-04-21 07:11:00 [facility] [facility] Temperature Oral (F) 2015-02-03 00:13:00 98 F [facility] Heart Rate 2015-02-03 00:13:00 [facility] Systolic (mm Hg) 2015-02-03 00:13:00 [facility] Diastolic (mm Hg) 2015-02-03 00:13:00 [facility] Respitory Rate 2015-02-03 00:13:00 [facility] Height 2015-02-02 20:33:00 172.72 cm [facility] Weight 2015-02-02 20:33:00 [facility] BMI Calculated 2015-02-02 20:33:00 [facility] Respitory Rate 2015-02-02 20:33:00 [facility] Temperature Oral (F) 2015-02-02 20:33:00 98.2 F [facility] Heart Rate 2015-02-02 20:33:00 [facility] Systolic (mm Hg) 2015-02-02 20:33:00 [facility] Diastolic (mm Hg) 2015-02-02 20:33:00 [facility] Heart Rate 2014-07-07 04:20:00 [facility] Respitory Rate 2014-07-07 04:20:00 [facility] Temperature Oral (F) 2014-07-07 04:20:00 98.3 F [facility] Heart Rate 2014-07-07 03:38:00 [facility] Respitory Rate 2014-07-07 03:38:00 [facility] Systolic (mm Hg) 2014-07-07 03:38:00 [facility] Diastolic (mm Hg) 2014-07-07 03:38:00 [facility] Systolic (mm Hg) 2014-07-07 02:16:00 [facility] Diastolic (mm Hg) 2014-07-07 02:16:00 [facility] Respitory Rate 2014-07-07 02:16:00 [facility] Heart Rate 2014-07-07 02:16:00 [facility] Systolic (mm Hg) 2014-07-07 00:30:00 [facility] Diastolic (mm Hg) 2014-07-07 00:30:00 [facility] Temperature Oral (F) 2014-07-07 00:30:00 98.1 F [facility] Height 2014-07-07 00:30:00 193.04 cm [facility] BMI Calculated 2014-07-07 00:30:00 [facility] Weight 2014-07-07 00:30:00 [facility] Diastolic (mm Hg) 2014-04-02 17:45:00 [facility] Systolic (mm Hg) 2014-04-02 17:45:00 [facility] Respitory Rate 2014-04-02 17:45:00 [facility] Diastolic (mm Hg) 2014-04-02 17:30:00 [facility] Respitory Rate 2014-04-02 17:30:00 [facility] Systolic (mm Hg) 2014-04-02 17:30:00 [facility] Diastolic (mm Hg) 2014-04-02 17:15:00 [facility] Systolic (mm Hg) 2014-04-02 17:15:00 [facility] Respitory Rate 2014-04-02 17:15:00 [facility] Temperature Oral (F) 2014-04-02 15:15:00 97.9 F [facility] Temperature Oral (F) 2014-04-02 13:00:00 97.7 F [facility] Height 2014-03-30 16:58:00 193.04 cm [facility] BMI Calculated 2014-03-30 16:58:00 [facility] Weight 2014-03-30 16:58:00 [facility] Temperature Oral (F) 2014-03-30 16:58:00 98.2 F [facility] Heart Rate 2014-03-30 16:58:00 [facility] Respitory Rate 2014-03-06 00:15:00 [facility] Heart Rate 2014-03-06 00:15:00 [facility] Temperature Oral (F) 2014-03-06 00:15:00 98.1 F [facility] Systolic (mm Hg) 2014-03-06 00:15:00 [facility] Diastolic (mm Hg) 2014-03-06 00:15:00 [facility] Systolic (mm Hg) 2014-03-05 20:12:00 [facility] Temperature Oral (F) 2014-03-05 20:12:00 98.1 F [facility] Heart Rate 2014-03-05 20:12:00 [facility] Respitory Rate 2014-03-05 20:12:00 [facility] Diastolic (mm Hg) 2014-03-05 20:12:00 [facility] Respitory Rate 2014-03-05 16:21:00 [facility] Diastolic (mm Hg) 2014-03-05 16:21:00 [facility] Systolic (mm Hg) 2014-03-05 16:21:00 [facility] Heart Rate 2014-03-05 16:21:00 [facility] Temperature Oral (F) 2014-03-05 16:21:00 98.1 F [facility] Weight 2014-02-27 10:20:00 [facility] Weight 2014-02-26 07:14:00 [facility] BMI Calculated 2014-02-26 07:14:00 [facility] Height 2014-02-26 07:14:00 193.04 cm [facility] Height 2014-02-25 23:21:00 193.04 cm [facility] Weight 2014-02-25 23:21:00 [facility] BMI Calculated 2014-02-25 23:21:00 [facility] Temperature Oral (F) 2014-01-28 17:04:00 99 F [facility] Heart Rate 2014-01-28 17:04:00 [facility] Respitory Rate 2014-01-28 17:04:00 [facility] Diastolic (mm Hg) 2014-01-28 17:04:00 [facility] Systolic (mm Hg) 2014-01-28 17:04:00 [facility] Temperature Oral (F) 2014-01-28 13:02:00 98.8 F [facility] Heart Rate 2014-01-28 13:02:00 [facility] Respitory Rate 2014-01-28 13:02:00 [facility] Systolic (mm Hg) 2014-01-28 13:02:00 [facility] Diastolic (mm Hg) 2014-01-28 13:02:00 [facility] Weight 2014-01-28 10:00:00 [facility] Systolic (mm Hg) 2014-01-28 09:00:00 [facility] Diastolic (mm Hg) 2014-01-28 09:00:00 [facility] Temperature Oral (F) 2014-01-28 09:00:00 98.5 F [facility] Rate 2014-01-28 09:00:00 [facility] Respitory Rate 2014-01-28 09:00:00 [facility] BMI Calculated 2014-01-26 09:56:00 [facility] Height 2014-01-26 09:56:00 193.04 cm [facility] Weight 2014-01-26 09:56:00 [facility] Height 2012-07-20 20:49:00 193.04 cm [facility] Weight 2012-07-20 20:49:00 [facility] Systolic (mm Hg) 2012-02-28 02:30:00 [facility] Heart Rate 2012-02-28 02:30:00 [facility] Respitory Rate 2012-02-28 02:30:00 [facility] Diastolic (mm Hg) 2012-02-28 02:30:00 [facility] Temperature Oral (F) 2012-02-28 02:30:00 98.7 F [facility] Diastolic (mm Hg) 2012-02-27 21:00:00 [facility] Respitory Rate 2012-02-27 21:00:00 [facility] Systolic (mm Hg) 2012-02-27 21:00:00 [facility] Temperature Oral (F) 2012-02-27 21:00:00 98.3 F [facility] Rate 2012-02-27 21:00:00 [facility] Diastolic (mm Hg) 2012-02-27 17:00:00 [facility] Systolic (mm Hg) 2012-02-27 17:00:00 [facility] Respitory Rate 2012-02-27 17:00:00 [facility] Temperature Oral (F) 2012-02-27 17:00:00 97.5 F [facility] Heart Rate 2012-02-27 17:00:00 [facility] Height 2012-02-26 05:58:00 193.04 cm [facility] Weight 2012-02-26 05:58:00 [facility] Weight 2012-02-26 05:13:00 [facility] Height 2012-02-26 05:13:00 193.04 cm [facility] Respitory Rate 2011-12-08 16:20:00 [facility] Diastolic (mm Hg) 2011-12-08 16:20:00 [facility] Systolic (mm Hg) 2011-12-08 16:20:00 [facility] Temperature Oral (F) 2011-12-08 16:20:00 98.9 F [facility] Heart Rate 2011-12-08 16:20:00 [facility] Temperature Oral (F) 2011-12-08 13:00:00 99.2 F [facility] Heart Rate 2011-12-08 13:00:00 [facility] Systolic (mm Hg) 2011-12-08 13:00:00 [facility] Respitory Rate 2011-12-08 13:00:00 [facility] Diastolic (mm Hg) 2011-12-08 13:00:00 [facility] Diastolic (mm Hg) 2011-12-08 10:13:00 [facility] Systolic (mm Hg) 2011-12-08 10:13:00 [facility] Respitory Rate 2011-12-08 10:13:00 [facility] Heart Rate 2011-12-08 10:13:00 [facility] Temperature Oral (F) 2011-12-08 10:13:00 97.9 F [facility] Height 2011-12-03 19:23:00 193.04 cm [facility] Weight 2011-12-03 19:23:00 [facility] Weight 2011-12-01 22:46:00 [facility] Height 2011-12-01 22:46:00 193.04 cm [facility] Weight 2011-12-01 22:06:00 [facility] Height 2011-12-01 22:06:00 193.04 cm [facility] Respitory Rate 2011-08-28 12:00:00 [facility] Heart Rate 2011-08-28 12:00:00 [facility] Diastolic (mm Hg) 2011-08-28 12:00:00 [facility] Systolic (mm Hg) 2011-08-28 12:00:00 [facility] Temperature Oral (F) 2011-08-28 12:00:00 97.7 F [facility] Diastolic (mm Hg) 2011-08-28 04:00:00 [facility] Systolic (mm Hg) 2011-08-28 04:00:00 [facility] Heart Rate 2011-08-28 04:00:00 [facility] Respitory Rate 2011-08-28 04:00:00 [facility] Temperature Oral (F) 2011-08-28 04:00:00 97.9 F [facility] Diastolic (mm Hg) 2011-08-27 20:52:00 [facility] Systolic (mm Hg) 2011-08-27 20:52:00 [facility] Respitory Rate 2011-08-27 20:52:00 [facility] Heart Rate 2011-08-27 20:52:00 [facility] Temperature Oral (F) 2011-08-27 20:52:00 98.1 F [facility] Weight 2011-08-26 21:30:00 [facility] Height 2011-08-26 21:30:00 193.04 cm [facility] Respitory Rate 2011-07-07 14:00:00 [facility] Diastolic (mm Hg) 2011-07-07 14:00:00 [facility] Heart Rate 2011-07-07 14:00:00 [facility] Systolic (mm Hg) 2011-07-07 14:00:00 [facility] Temperature Oral (F) 2011-07-07 14:00:00 98.4 F [facility] Diastolic (mm Hg) 2011-07-07 10:00:00 [facility] Systolic (mm Hg) 2011-07-07 10:00:00 [facility] Respitory Rate 2011-07-07 10:00:00 [facility] Temperature Oral (F) 2011-07-07 10:00:00 97.3 F [facility] Heart Rate 2011-07-07 10:00:00 [facility] Temperature Oral (F) 2011-07-07 06:00:00 97.8 F [facility] Weight 2011-07-06 09:52:00 [facility] Weight 2011-07-06 08:45:00 [facility] Height 2011-07-06 08:45:00 193.04 cm [facility] Systolic (mm Hg) 2011-05-05 18:00:00 [facility] Respitory Rate 2011-05-05 18:00:00 [facility] Diastolic (mm Hg) 2011-05-05 18:00:00 [facility] Heart Rate 2011-05-05 18:00:00 [facility] Temperature Oral (F) 2011-05-05 18:00:00 98.6 F [facility] Heart Rate 2011-05-05 14:00:00 [facility] Diastolic (mm Hg) 2011-05-05 14:00:00 [facility] Systolic (mm Hg) 2011-05-05 14:00:00 [facility] Respitory Rate 2011-05-05 14:00:00 [facility] Temperature Oral (F) 2011-05-05 14:00:00 98.0 F [facility] Temperature Oral (F) 2011-05-05 10:00:00 98.6 F [facility] Systolic (mm Hg) 2011-05-05 10:00:00 [facility] Diastolic (mm Hg) 2011-05-05 10:00:00 [facility] Respitory Rate 2011-05-05 10:00:00 [facility] Heart Rate 2011-05-05 10:00:00 [facility] Weight 2011-05-02 11:34:00 [facility] Weight 2011-04-28 06:28:00 [facility] Height 2011-04-28 06:28:00 193.04 cm [facility] Respitory Rate 2011-02-17 19:45:00 [facility] Heart Rate 2011-02-17 19:45:00 [facility] Temperature Oral (F) 2011-02-17 19:45:00 97.8 F [facility] Systolic (mm Hg) 2011-02-17 19:45:00 [facility] Diastolic (mm Hg) 2011-02-17 19:45:00 [facility] Diastolic (mm Hg) 2011-02-17 15:30:00 [facility] Temperature Oral (F) 2011-02-17 15:30:00 97.7 F [facility] Systolic (mm Hg) 2011-02-17 15:30:00 [facility] Respitory Rate 2011-02-17 15:30:00 [facility] Heart Rate 2011-02-17 15:30:00 [facility] Diastolic (mm Hg) 2011-02-17 12:13:00 [facility] Respitory Rate 2011-02-17 12:13:00 [facility] Systolic (mm Hg) 2011-02-17 12:13:00 [facility] Temperature Oral (F) 2011-02-17 12:13:00 98.5 F [facility] Heart Rate 2011-02-17 12:13:00 [facility] Weight 2011-02-15 02:25:00 [facility] Height 2011-02-15 02:25:00 193.04 cm [facility] Weight 2011-02-14 23:10:00 [facility] Height 2011-02-14 23:10:00 193.04 cm [facility] Procedures Procedure Date / Time Performed Performing Clinician [facility] e Fluoroscopic angiography Waleska Cohen of coronary artery and insertion of stent Fusion of lumbar spine [facility] IVC - Insertion of [facility] pinky inferior vena caval filter Pacemaker [facility] care<sup>1</sup> Percutaneous transluminal Andrews al [facility] balloon angioplasty of aorta with stent placement for coarctation of aorta Procedure on [facility] back<sup>2</sup> IVC - Insertion of [facility] pinky inferior vena caval filter Procedure on back [facility] <sup>1</sup> Plan of Care Planned Activity Planned Date Details Comments Source Future Scheduled 2019-12-09 INFLUENZA VACCINE [place] [facility] 00:00:00 [code = INFLUENZA VACCINE] Future Scheduled 2000 65+ PNEUMOCOCCAL [place] [facility] 00:00:00 VACCINE (1 of 1 - PPSV23) [code = 65+ PNEUMOCOCCAL VACCINE (1 of 1 - PPSV23)] Future Scheduled 1985 SHINGLES VACCINES (#1) [place] [facility] 00:00:00 [code = SHINGLES VACCINES (#1)] Future Scheduled 1951 COVID-19 VACCINE (1) Shayla deng [facility] 00:00:00 [code = COVID-19 VACCINE (1)] Encounters Start End Encounter Admission Attending Care Care Encounter Source Date/Time Date/Time Type Type Clinicians Facility Department ID 2018-11-29 Inpatient [facility] [id number] 22:21:00 2018-11-29 2018-12-01 Outpatient Maryann [facility] [id number] 22:21:00 17:00:00 Cecy Eugene GilbertJuanita 2018-04-19 2018-04-19 Outpatient [facility], 29 29 [id number] 08:00:00 08:00:00 Arnaldo Miles 2018-03-25 2018-03-29 Outpatient Prince [facility] [id number] 15:02:00 16:28:00 Kavita 20 A 2017-04-10 2017-04-11 [facility] [id number] 14:03:00 15:23:00 Kavita 34 A 2017-03-16 2017-03-23 Outpatient Morrison, [facility] [id number] 12:02:00 18:17:00 Kavita 18 A 2016-03-09 2016-03-11 Outpatient Morrison, [facility] [id number] 12:18:00 16:44:00 Kavita 05 A 2016-01-17 2016-01-18 Outpatient Alexus, [facility] [id number] 16:15:00 12:05:00 Alverto 17 2015-05-28 2015-05-28 Outpatient Elizabeth Catalan [facility] [id number] 14:59:00 17:26:00 Abel 15 2015-04-21 2015-04-24 Outpatient Justin, [facility] [id number] 00:14:00 17:10:00 Mike Amanda 46 2015-02-02 2015-02-02 Outpatient Jess, [facility] [id number] 15:30:00 19:16:00 Pop Soto 14 2014-07-06 2014-07-06 Outpatient Forbes, [facility] [id number] 18:18:00 22:22:00 Abdon Mas 13 2014-04-02 2014-04-02 Outpatient Kriss, [facility] [id number] 06:14:00 11:55:00 Terry 12 Chaitanya 2014-02-25 2014-03-05 Outpatient Kenny Bari [facility] [id number] 18:17:00 20:10:00 Lesly 11 2014-01-26 2014-01-28 Outpatient Bari Cox [facility] [id number] 06:24:00 17:14:00 Lesly 62 Results Test Description Test Time Test Comments Results Result Comments Source CHEM PANEL 2018-12-01 2.10 [facility] [...] code = MCH) 30.5 pg 27.0-31.0 [facility] QguftcnXVGKANFRHW3944-20-23 10:20:004.2[facility]annHEMATOLOGY 2018-12-01 10:20:0010.8[facility] FkowwlwQPNGGQPDSA2047-94-76 10:20:0016.8[facility] CrdreslQCCEMFAXFK7285-74-28 10:20:0077[facility] UofbgqdAACURBLVCQ9157-15-26 10:20:008.3[facility] LxejgpkPLLLGTWRYI5586-81-07 10:20:0032.3[facility] HermannCHEM FJTZU7490-93-83 10:20:008.3[facility] HermannCHEM UWSIF2998-84-63 10:20:0013.2 [facility]annCHEM HJNBE6828-09-65 10:20:004.2[facility]annCHEM PANEL 2018-12-01 10:20:60859Gpydzosd HermannCHEM FLXBN4123-84-95 10:20:0029[facility] HermannCHEM BZUDB8965-59-18 10:20:88227Lewcvieu HermannCARDIAC ICNMFFE1762-75-81 10:43:000.18[facility]annCARDIAC ECUOVFU8405-82-20 07:05:000.21[facility]annCARDIAC HEDJNDA0209-96-98 07:05:94689Xdkabegq HermannCHEM FLSKH9362-25-46 07:05:002.5[facility] HermannCHEM SWNYK6008-94-55 07:05:002.0[facility]annCHEM YOWQZ2603-78-17 07:05:0035[facility]annCHEM BTBAU6312-99-25 07:05:0068 [facility]annCHEM QNQEV2153-38-27 07:05:000.6[facility]annCHEM PANEL 2018-11-30 07:05:0013[facility] HermannCHEM BXUGL3881-05-72 07:05:003.9[facility] HermannCHEM CXSJC4741-92-27 07:05:0027[facility] HermannCHEM QQCQR6695-82-42 07:05:008.2[facility] HermannCHEM PDAFO8568-91-91 07:05:27395Liurrikv HermannCHEM BPLSO5734-65-41 07:05:007.8[facility] HermannCHEM CVTWW0774-90-02 07:05:49710 [facility]annCHEM QDWXJ1939-13-57 07:05:002.00[facility]annCHEM PANEL 2018-11-30 07:05:003.1[facility] HermannCHEM HDTFV9113-47-63 07:05:95102Qbpnqmkq HermannCHEM QIJMP5983-90-39 07:05:0030[facility]annCHEM UZXYC5077-89-70 07:05:0014[facility]annCHEM UTPDZ9523-95-07 07:05:00 Test Item Value Reference Range Interpretation Comments A/G Ratio (test code = A/G Ratio) 0.7 1 0.7-1.6 [facility]annCHEM YQLAV1768-07-44 07:05:004.7[facility] HermannCHEM PANEL 2018-11-30 07:05:009.9[facility]annCHEM ZRCBO2531-48-17 07:05:00 Test Item Value Reference Range Interpretation Comments B/C Ratio (test code = B/C Ratio) 15 1 6-25 [facility] YknguclBENEBMVUGN3372-65-52 07:05:0032.1[facility] HermannHEMATOLOGY 2018-11-30 07:05:0017.8[facility] EfgmnqhOOQFZIAVIY2128-79-91 07:05:00 Test Item Value Reference Range Interpretation Comments MCH (test code = MCH) 30.7 pg 27.0-31.0 [facility] QbtqxjbQCRZYJWZHE8693-64-70 07:05:003.46[facility]annHEMATOLOGY 2018-11-30 07:05:004.9[facility] WgvnuuqASUYOFNGOK9994-48-33 07:05:008.2[facility] YdntnxfUVRYVWQVYR1970-57-14 07:05:0091[facility] CtygxccURELHGFWHB5373-42-12 07:05:0095.7[facility] ZhvkzdbACBQQPXGJX0208-46-83 07:05:0010.6[facility] AKRLBNEGDI3089-38-92 07:05:0033.1[facility] HcratxiUFGKIDLJUF3273-03-30 07:05:00 3.0[facility] KxfiwsnOZAZBRHHSX2201-31-92 07:05:001.5[facility]annHEMATOLOGY 2018-11-30 07:05:000.2[facility] UwfrlikSOTNQZPILZ4841-48-56 07:05:000.2[facility] KnyragxMVCJOIROWV6883-93-39 07:05:000.0[facility] EfzrenqPWMPBYVAHW4012-52-20 07:05:0061.3[facility] StdandsPJLQFSSPTF7470-21-28 07:05:0029.5[facility] PYBHLPIYVF3367-76-01 07:05:004.4[facility] LcynjahUZWKTMHAAZ2628-33-65 07:05:000.5 [facility] XkrvkkhGTUVVCTYUU5864-28-11 07:05:004.3[facility] JpzonqfWOKEUA7002-95-58 07:05:00 Test Item Value Reference Range Interpretation Comments CHD Risk (test code = CHD Risk) 1.75 1 4.00-7.30 [facility] JsvwttzYVTFOZ6597-02-57 07:05:00 Test Item Value Reference Range Interpretation Comments VLDL (test code = VLDL) 14 1 [facility] DomtpxmTDYQZA4655-19-14 07:05:0024[facility] QlhkuuxYULNTW2924-15-63 07:05:0071[facility] AlwwjevYSYKZV9123-60-12 07:05:0051[facility] HermannLIPIDS 2018-11-30 07:05:0089[facility] HermannSPECIAL ZIAYIHROL0861-75-86 07:05:006.8 [facility] VjbzqsaNNVQPMKZOS2504-11-94 18:17:00 Test Item Value Reference Range Interpretation Comments MCH (test code = MCH) 30.1 pg 27.0-31.0 [facility] BrqnqisMOZSKXOTAY5309-48-35 18:17:0032.4[facility] HermannHEMATOLOGY 2018-03-29 18:17:0092.8[facility] YsgjdklOJMUFPJSEE4215-73-49 18:17:0011.5[facility] LvqaddxPJRQKMUMIW5721-59-62 18:17:0035.6[facility] SbszgrhZTNKDMZYBJ1958-46-85 18:17:0018.2[facility] PgxgawzNDQIJKQOTX6792-72-45 18:17:009.8[facility] PTIQBSPTRL6803-93-24 18:17:96551Mqhwomki MmtwjfqBNDCGKUMFV1384-17-89 18:17:005.9 [facility] KhkmueiKTOBQMIKYG0094-04-07 18:17:003.84[facility] HermannELECTROLYTES 2018-03-29 09:29:0010.6[facility] ZcynvuoFRJTRLBFMOJX5683-60-35 09:29:06416 [facility] MvrayqwGSBDLSQGOKLC4009-46-23 09:29:0042[facility] HermannELECTROLYTES 2018-03-29 09:29:007.9[facility] NgkeiltDCCBHIDIXGOS2893-48-95 09:29:0026[facility] TrndyrbMNPFOSYSVETV4913-78-82 09:29:003.6[facility] NddfhmgLLPIZWFMXYCW5494-90-12 09:29:28221Cvfewuke SlingfzQQJPASPSOEWV2623-35-94 09:29:23448Awpetloj Noel KQQNNHOOSJRM6825-11-86 09:29:001.70[facility] XflgisvICPESHEYVNRN8601-85-41 09:29:0020[facility] PabclmtCXIYJGXWAU3000-00-93 09:29:00 Test Item Value Reference Range Interpretation Comments PT (test code = PT) 17.7 s 12.0-14.7 [facility] XojddgiVVQEWGFNON9456-24-82 09:29:00 Test Item Value Reference Range Interpretation Comments INR (test code = INR) 1.45 1 0.85-1.17 [facility] OeeeehoFNQYZG0225-98-25 09:29:00 Test Item Value Reference Range Interpretation Comments CHD Risk (test code = CHD Risk) 1.69 1 4.00-7.30 [facility] NdxddidVJTSIF9329-04-34 09:29:00 Test Item Value Reference Range Interpretation Comments VLDL (test code = VLDL) 13 1 [facility] NjowfobEPZGGY7117-48-57 09:29:0016[facility] UijsytlUZMEXU2985-86-22 09:29:0071[facility] YiiaoczWOLDCL7139-03-72 09:29:0042[facility] HermannLIPIDS 2018-03-29 09:29:0066[facility] JladjmjVLECSNDUEU5983-73-57 10:42:0062.0[facility] OxrkdlgVGFGNJPTRR2930-75-88 10:42:0030.0[facility] ChreycoCHWQSUTHQP7278-46-30 10:42:308796Roxmpffw CaqxhoqZDGZEHCPJV5855-01-22 05:33:008[facility] HermannCHEM DWQWJ4782-40-35 22:16:003.5[facility] WxmmmsuEINCAFFUWH2383-91-93 22:16:72394.44 [facility] JekvcwbBHADUJRMJD9532-04-01 22:16:0013.69[facility] HermannIMMUNOLOGY 2018-03-27 22:16:000.10[facility] PlqfodsLCHKHNICYG7475-74-82 22:16:003.25[facility] UkvkpvgGJSFISLXNC4080-57-66 22:16:000.78[facility] PoyejogZIHDRHWISN1500-01-52 22:16:000.32[facility] ImvumleBKGYTSAKIP5073-03-51 22:16:000.61[facility] NCNPQOBZMV4655-68-50 22:16:007.0[facility] WciqdyvFQEVTHZOOM6732-34-15 22:16:00 2.04[facility] AafpafqECBCCXUHHK0600-27-81 22:16:004.6[facility] HermannIMMUNOLOGY 2018-03-27 22:16:0046.4[facility] QqzizfySEGMYKHOHT2033-27-41 22:16:008.7[facility] ZelofhkYDTLGWSPFX9538-62-83 22:16:0011.2[facility] NiamzieNHLHNDGMSM7320-74-37 22:16:0029.1[facility] HermannCARDIAC MCWRISK3707-87-80 10:11:84538Zczonsgh DqfklrrVWABMSHUNWZC8808-00-90 10:11:0010.7[facility] WwqoooyXSOUITRPZAWU1194-30-68 10:11:007.5[facility] MkcursgFFCOCWKEZQZQ3897-68-13 10:11:0026[facility] FERUDTFKHCJE3631-42-73 10:11:0022[facility] PreaztuGRDMLIVUMBUA6707-38-85 10:11:00 1.60[facility] DhmksveABLZNLIPZFYS9667-08-49 10:11:41942Vdxnmrci Rowdy VMGNRUIIOJLH3871-94-81 10:11:92721Xixqqsni LvtrvmnDICZSBUIUNLH8279-70-15 10:11:003.7[facility] TlwecvfSBOJTCMGPNNE7238-36-89 10:11:0046[facility] BIMHGJVUUKDN5243-73-02 10:11:0087[facility] JhdaijvDNFLCIMEXY0606-09-45 10:11:00 Test Item Value Reference Range Interpretation Comments INR (test code = INR) 2.09 1 0.85-1.17 [facility] HcbwubuYGCXPGDPPT7097-42-68 10:11:00 Test Item Value Reference Range Interpretation Comments PT (test code = PT) 23.7 s 12.0-14.7 [facility] HermannURINE AND SWGJH1777-18-75 14:47:00Positive *ABN*(03/26/18 8:47 AM)[facility] HermannCARDIAC RQUGWJN8889-73-19 10:02:02275Rablemzn Rowdy YDKWVEVRBJFC5564-08-04 10:02:009.5[facility] RqpanhwZKJZGFGAAMHI5471-18-38 10:02:0040[facility] YvjtwonTTANBZAIPPOG2223-01-75 10:02:78007Vaibaqmu Rowdy JSSZEZNGDSOX2398-80-09 10:02:72314Kdbwwaih VwldiduWXYCTLTKJEHP4198-71-37 10:02:003.5[facility] LzalbdmTNZBYDKFACNW7914-27-19 10:02:0029[facility] TPUFLJPAZMOO2728-54-52 10:02:007.6[facility] HcwpgxnITMLYGTUVQZK1096-73-88 10:02:001.80[facility] BsxzqtaGLEVYEUUOHJV8806-80-72 10:02:18391Ymxwkwhc Noel ICVTGJIDBXVB8971-31-49 10:02:0025[facility] YfdqvhaWVCNUFVQYB1153-55-56 10:02:00 Test Item Value Reference Range Interpretation Comments PT (test code = PT) 27.1 s 12.0-14.7 [facility] UqdoqrtLVRCYLZDOQ0613-94-78 10:02:00 Test Item Value Reference Range Interpretation Comments INR (test code = INR) 2.48 1 0.85-1.17 [facility] AzdezmdSFWAGFBJTR1159-25-83 10:02:001.7[facility] 2018-03-26 10:02:000.2[facility] UwmxivnUISPVOSNDT6491-16-63 10:02:001.4[facility] DvtmuzsHTXTMCGYEP1043-91-59 10:02:003.5[facility] DyeuujeTPANEJWPWG4195-44-77 10:02:000.1[facility] PzxmfasRMNAILCBKN5390-53-26 10:02:000.3[facility] HHZIZLCRBT2638-69-24 10:02:0066.1[facility] JkchefvLUZXLPTDGI4600-09-89 10:02:00 5.2[facility] IotvwwmBOWPVIZGPY0438-50-55 10:02:0027.1[facility] 2018-03-26 10:02:001.4[facility] BfxzxlzDGDCDDKVGZ5925-73-78 10:02:0033.3[facility] BgybrmnMKDTKIGQUQ5478-85-40 10:02:00 Test Item Value Reference Range Interpretation Comments MCH (test code = MCH) 30.6 pg 27.0-31.0 [facility] NsmukngRWKURQJOZI2678-62-44 10:02:0088[facility] 2018-03-26 10:02:0017.5[facility] PhwjjpkOFYRHPKCLW4552-04-26 10:02:009.0[facility] OadphrxMGUUOMIHJQ9221-82-32 10:02:005.3[facility] QjgxsuuUBPCQLSMNS6096-67-35 10:02:0011.6[facility] IciejstQXNCMWKEXB4701-95-23 10:02:003.81[facility] XKSZHENRHE6346-33-85 10:02:0091.8[facility] IqdctekHBNFNKMHIU9602-40-65 10:02:00 35.0[facility] UuxtgmuQHDECEJYAH6268-66-38 11:24:003.78[facility] 2017-04-11 11:24:009.4[facility] BturvqkOCZVFTYGQN1802-81-22 11:24:0074[facility] PxqlefiFEIQIZTYHE3338-38-03 11:24:0016.3[facility] IxvxgiyIXBNAVYYJJ6238-40-74 11:24:0090.7[facility] VdmmjkoRBYTZQYCLV6723-38-69 11:24:0033.9[facility] WIKFZCYGUV4160-15-77 11:24:00 Test Item Value Reference Range Interpretation Comments MCH (test code = MCH) 30.8 pg 27.0-31.0 [facility] QiglthcZDBBYTLFXF6891-38-46 11:24:0034.3[facility]HE[facility]OLOGY 2017-04-11 11:24:0011.6[facility] HwrggjyWKEBBSAQZI4018-07-29 11:24:004.2[facility] SfgdjkwYPNZHAQGWX2713-57-99 11:24:005.2[facility] AnamtaaRDVVEGTWEZ5281-75-94 11:24:002.4[facility] NecdofrOQJASXQJWD4544-05-89 11:24:0058.5[facility] JZODHTIPBH5364-38-12 11:24:0033.2[facility] OxpnipyHMPYGKXWIB3355-54-49 11:24:00 0.2[facility] OxelhdwODHIFWETNQ8746-99-32 11:24:000.1[facility]HEMATOLOGY 2017-04-11 11:24:002.4[facility] PgxmrroZGMOEQIKRP5970-86-76 11:24:001.4[facility] YlbgegyDHDKTKISAL3366-69-51 11:24:000.7[facility] NHEQY2694-45-29 15:39:00Negative (04/10/17 9:39 AM)[facility] TvvksqkHSUTYPLHKY0559-48-85 09:27:00 0.1[facility] WsqbacmHRHJQIRHYL0014-52-31 09:27:000.2[facility]annHEMATOLOGY 2017-04-10 09:27:001.5[facility] LwralnfJEWLOMYMZX0157-15-09 09:27:002.3[facility] XqviehzFTTHOFYMUA2498-83-90 09:27:000.7[facility] LzdgtvmNOLKUFBRHV8743-29-04 09:27:002.6[facility] PrhjmpqIEZZRDEALK6837-59-88 09:27:005.2[facility] RRUJYGHDXG9052-33-51 09:27:0035.9[facility] UjiibfuWVIPUWLJHV2294-81-66 09:27:00 55.6[facility] TdoruhlJGKRYZWCQA6475-54-92 09:27:0058[facility]annHEMATOLOGY 2017-04-10 09:27:009.1[facility] ClvmsgrYZZDNSKOOT4069-22-69 09:27:0032.5[facility] QnvvjouWCJFIFKAYE5656-86-98 09:27:0034.1[facility] ThnbdbwZGSSCBWFOH5785-26-58 09:27:0016.2[facility] WvidzuwIKXTZCAEXE4635-32-19 09:27:0090.3[facility] XQMBBIWBPB4264-40-85 09:27:00 Test Item Value Reference Range Interpretation Comments MCH (test code = MCH) 30.8 pg 27.0-31.0 [facility] HsinisdDJNQPBJYKU0661-33-73 09:27:0011.1[facility]annHEMATOLOGY 2017-04-10 09:27:004.2[facility] RgdqijvCBNRPAREWZ3079-30-09 09:27:003.60[facility] HermannANEMIA CLIRP2838-44-73 23:26:37762Bdwaveoe HermannANEMIA PHNBK5074-12-62 23:26:007.0[facility] HermannANEMIA JMXRM0367-26-96 23:26:61151Oxwfcteh Noel ANEMIA EFUEZ4055-86-09 23:26:0022[facility]annANEMIA VCXMS2431-80-63 23:26:00 176[facility] HermannANEMIA MWFBO7085-05-32 23:26:30489Immjhgae HermannANEMIA GBAGZ2818-14-88 23:26:0050[facility] HermannCHEM RQYZM0610-18-82 23:26:18398 [facility]annCHEM PDJPE6821-87-50 23:26:000.7[facility] HermannCHEM PANEL 2017-04-09 23:26:000.3[facility]annCHEM XTLQR8069-81-17 23:26:000.4[facility] IukvqqcPGZXWHOJFF9149-51-13 23:24:000.8[facility] YdwnrpeDITXUWZNDU2872-22-97 23:24:00 Test Item Value Reference Range Interpretation Comments PTT (test code = PTT) 28.0 s 22.9-35.8 [facility] NjtuodzMQFMLGIRFQ3923-07-22 23:24:00 Test Item Value Reference Range Interpretation Comments PT (test code = PT) 19.1 s 12.0-14.7 [facility] SdtjmtrMDDUDKWRCZ2992-56-67 23:24:001.59[facility]annHEMATOLOGY 2017-04-09 23:24:59572Nskrdiaf IuhlpheYQJYDSYTBW8720-03-22 23:24:009.69[facility] OqhyrmkJRAYMIYKQI8913-41-00 23:24:0025[facility]annUR[facility] AND EDUZF2791-90-41 15:14:00<=1.0[facility] FIOHL9480-46-24 15:14:007[facility] TFFBS2201-16-59 15:14:00Negative (04/09/17 9:14 AM)[facility] UFNZV7855-52-14 15:14:00Negative (04/09/17 9:14 AM)[facility] VPQMC3452-75-93 15:14:00Negative (04/09/17 9:14 AM)[facility] NIFQH4674-67-73 15:14:00Clear (04/09/17 9:14 AM)[facility] URINE AND AIDZD6415-85-88 15:14:001.010[facility] GPUPK5730-29-90 15:14:006.0[facility] TLPLD0791-15-16 15:14:001[facility] URINE AND XXIOA8305-56-04 15:14:001[facility] ISYAZ1809-76-42 15:14:00Negative *NA*(04/09/17 9:14 AM)[facility] HermannCARDIAC DUSTCEV6637-36-79 02:31:35327Vnpofuzi HermannCARDIAC ERXUPFN7238-95-57 02:31:003.7[facility] CARDIAC ZGJMRYM4910-78-15 02:31:000.18[facility] HermannCHEM ZCEID6473-03-07 02:31:00<10.0[facility] UsgfrmrNMZRINTZKSNL7196-15-05 02:31:0011.4[facility] RkdzmptALVEQXTFEGXB6760-75-93 02:31:0028[facility] PsmcrrbNEABOYVDQHGH5600-12-31 02:31:0023[facility] MgvatewFOWHNPREYTMF7648-69-53 02:31:002.40[facility] ECWKPCDTGOVJ8439-38-81 02:31:09297Rgzekcfx SpjhbnqRLPHQZPKTGPD5756-58-95 02:31:003.4[facility] ZtofukxEQSAYOVZWURM8299-01-05 02:31:12217Ubgcieyg Rowdy YQZJKYCUOCHG8831-71-43 02:31:0026[facility] CouqqvrVZMABMTVFWBC5924-18-21 02:31:00 8.1[facility] CehfspyFKGQXQZHZNPU9063-84-57 02:31:69614Owfqozrt HermannHEMATOLOGY 2017-04-09 02:31:0061[facility] GsjtrzjLUHKVYZTMF4490-04-84 02:31:0016.6[facility] WjomdfaSGQCIRHMGH4650-42-05 02:31:0033.3[facility] DtskblvJFHLHVENVF7288-35-59 02:31:0091.2[facility] ZivcjhsXYCMWDBMUR2208-11-30 02:31:00 Test Item Value Reference Range Interpretation Comments MCH (test code = MCH) 30.4 pg 27.0-31.0 [facility] NngqczvWLLHOFSTRN5618-57-09 02:31:004.3[facility] HermannHEMATOLOGY 2017-04-09 02:31:003.84[facility] IdfdwqfYJAITLBFSN8039-59-01 02:31:0011.7[facility] MasscjzGLVHJXIKNR4004-03-26 02:31:009.5[facility] HhqrsgvMGFTOXFSEM9914-49-55 02:31:0035.0[facility] FofenhsYQYSTUJDJF2245-58-62 02:31:00 Test Item Value Reference Range Interpretation Comments PTT (test code = PTT) 26.7 s 22.9-35.8 [facility] PxsejmfKWXIGUGAZG1961-27-29 02:31:001.67[facility]annHEMATOLOGY 2017-04-09 02:31:00 Test Item Value Reference Range Interpretation Comments PT (test code = PT) 19.8 s 12.0-14.7 [facility] UdnnvdbQPGSEUBYRY9041-46-23 02:31:0026.2[facility] HermannHEMATOLOGY 2017-04-09 02:31:0069.6[facility] UayoxjhBZVIUDMWHG4780-65-11 02:31:001.0[facility] QztqgbkWUGCXMAGMF8072-90-29 02:31:003.0[facility] XkhalrhYCWPIZBQAZ8285-91-48 02:31:000.2[facility] XlpieqxYSJMVMFBVC6792-89-86 02:31:000.1[facility] IEMNSCUCQG6751-28-49 02:31:001.1[facility] LwpnoglSUUEQJNLPY9858-69-98 02:31:000.0 [facility] EegzasdXBAZHJBWQF1902-48-52 02:31:003.0[facility] HermannHEMATOLOGY 2017-04-09 02:31:000.0[facility] TlxhxkhANHPBOMXRG6607-83-64 10:18:0010.7[facility] QlrihvvNMAKFNSEDX2692-68-12 10:18:0092.8[facility] LeeyhtqTJLPYLDOKU2698-60-00 10:18:00 Test Item Value Reference Range Interpretation Comments MCH (test code = MCH) 30.5 pg 27.0-31.0 [facility] GzxburaMHVHQKVSTV8915-86-07 10:18:0012.3[facility] HermannHEMATOLOGY 2017-03-23 10:18:0037.5[facility] WjfmhmqGBJVOFNKET4457-24-01 10:18:0032.9[facility] GiacaihRARCJSMWDC6712-16-89 10:18:0041[facility] EgoqzuySMQZFQLETS8373-78-52 10:18:0016.7[facility] FeywysuRGBZQGFNIZ7291-76-90 10:18:006.8[facility] APCWVGDMVZ6200-17-46 10:18:004.04[facility] KgfwwrkEBWFDWDGWW3101-61-26 10:18:00 0.1[facility] VfdmbiaSFPDIZTLGL2430-08-39 10:18:003.2[facility] HermannHEMATOLOGY 2017-03-23 10:18:001.3[facility] UtmhgfrBLCQKJESRE4136-57-38 10:18:0073.3[facility] BtldyajIMFAGTSXNY5854-00-73 10:18:0022.1[facility] PtffjifFGZXTEDRNE7368-28-31 10:18:000.0[facility] GfiyymgSYZVAGJAGU6885-22-90 10:18:000.2[facility] LKDDDDYZDS3897-35-79 10:18:000.1[facility] HulpybgGCREOOFNRS2600-81-23 10:18:005.0 [facility] YfyeeplIAQSZCHSRS3563-17-06 10:18:001.5[facility] HermannHEMATOLOGY 2017-03-22 10:26:0092.0[facility] LdhvkwmGVKUABFPSC3106-78-44 10:26:0011.9[facility] WwcotjzEKNGNTHRMK7579-30-53 10:26:00 Test Item Value Reference Range Interpretation Comments MCH (test code = MCH) 30.5 pg 27.0-31.0 [facility] DsrwpskDPXGATXIWY9872-38-78 10:26:0035.7[facility] HermannHEMATOLOGY 2017-03-22 10:26:008.9[facility] XpkslqjMIQGIOVHHM5839-85-98 10:26:0058[facility] DqyvekfUSBWUANQGM0517-62-77 10:26:0016.4[facility] LmtqsmuUOCCNWAFBS8690-78-45 10:26:003.88[facility] RpniuvzTRWSDETRTH7723-99-52 10:26:005.3[facility] ZLKXWNMFNTBR1901-95-68 10:26:0015.8[facility] RzgupkiLHJHLHKVMAQA1167-87-29 10:26:008.8[facility] PsnkipkWUVPGWBMLTHA9651-86-63 10:26:0026[facility] BUUOQMXUPKIW0034-37-55 10:26:13046Frwvrjdv VhfscbfSHSLGKCYIOAB5962-14-28 10:26:0040[facility] WhntmhuFOWSOKCZLQCS2826-97-66 10:26:0096[facility] HCJMFSRIVKLQ4837-78-56 10:26:003.8[facility] KrpgqkuEUKWYQVCUKHA0571-71-43 10:26:0025[facility] ViqpuyhWLFGDNQHEQHN6369-77-14 10:26:04306Cnpvyqzk Rowdy KZRPKBSNSWJP9076-66-48 10:26:002.60[facility] EcpnmolZZUIOMEPUM0360-31-32 10:26:00 0.3[facility] TetlkdxJGIJGKAMIO2577-57-84 10:26:001.2[facility] HermannHEMATOLOGY 2017-03-22 10:26:000.1[facility] PdmfiisYVPRRAHCKR4957-66-86 10:26:003.7[facility] QlntehqMCDNFXVKND6313-55-62 10:26:0069.6[facility] GbefcyvSMLECAWTGD3507-02-67 10:26:0023.0[facility] VpbcajzBONEVDOOJO3936-87-46 10:26:001.9[facility] DPYFGLIBEC8710-23-76 10:26:004.9[facility] WpekmanPPPUCDSODB7361-23-39 10:26:000.6 [facility] NxbpzjrSVENPXRKJM8801-08-27 10:26:0033.2[facility] HermannELECTROLYTES 2017-03-21 09:55:0014.5[facility] ChlkfflWXCYSZHGIRJF1927-82-36 09:55:0022[facility] HtqefybIQZFARRGQGVI9731-76-45 09:55:002.90[facility] MdseuudQRVJEUZWIUFA6159-52-46 09:55:0044[facility] AwijkwqVANNPEQSRSJS5212-99-62 09:55:0097[facility] WXJEQSERXMSZ2284-87-65 09:55:12528Ylpcdewl AyilzxaRAOTKCGNBHLN0976-99-60 09:55:003.5[facility] SyxcpeqKEXDVRMQKOMI3706-94-16 09:55:009.0[facility] QBPZVLIRFNRN5850-15-84 09:55:0027[facility] VefurehFDYTNIPKMYDO8914-33-16 09:55:00 101[facility] KnmgxtrSNBLGWQJHZ5816-49-26 09:55:000.0[facility]annHEMATOLOGY 2017-03-21 09:55:001+ *ABN*(03/21/17 3:55 AM)[facility]annHEMATOLOGY 2017-03-21 09:55:001.4[facility] GhwqtelYQWRSPSWHK9495-94-25 09:55:004.9[facility] MtyfeidXTTWHBBFZP5440-48-07 09:55:0027.5[facility] XqcdxcrVCRTSWJGSJ9892-80-88 09:55:000.2[facility] OepyzdxFCFJLVHIBW6177-44-86 09:55:001.4[facility] Nole ZATYIODZYF2941-29-63 09:55:000.6[facility] CrestgeOWIGQHHDJB2918-55-44 09:55:003.3 [facility] AoewdjdIJRSOIEQQR3367-80-20 09:55:0065.6[facility] HermannHEMATOLOGY 2017-03-21 09:55:000.1[facility] UkpgtcqFRKJZRVWJT6591-00-48 09:55:00 Test Item Value Reference Range Interpretation Comments PT (test code = PT) 14.3 s 12.0-14.7 [facility] DpaoglnQRMZOHHLLS3329-63-33 09:55:001.11[facility]annHEMATOLOGY 2017-03-21 09:55:0012.0[facility] FwqgldlBIKYMNNUPH2838-28-90 09:55:0035.4[facility] FbifznyGVPHYKUJXV5347-44-93 09:55:0091.2[facility] WvlngovBVFUDAMNBC2326-95-97 09:55:003.88[facility] JkiioamGAHAYUEVUF8360-99-81 09:55:005.0[facility] XJHRASASNQ8240-35-54 09:55:0016.3[facility] LnqovtuRFARVQIBGX1672-46-52 09:55:0065 [facility] JnwbvppSDECERWSJG0465-78-26 09:55:008.8[facility]annHEMATOLOGY 2017-03-21 09:55:00 Test Item Value Reference Range Interpretation Comments MCH (test code = MCH) 30.8 pg 27.0-31.0 [facility] InlclqoDSPUELQWFR8074-57-34 09:55:0033.8[facility] HermannIMMUNOLOGY 2017-03-21 09:55:00Negative (03/21/17 3:55 AM)[facility] HermannELECTROLYTES 2017-03-20 11:35:0016.2[facility] VmkonabUJXIJGQBAYEV5424-53-64 11:35:0024[facility] CdppkkvWPRQXGVNRXFW3622-16-94 11:35:009.1[facility] YjewbmlEDKHGYPRTTHF9668-28-88 11:35:0095[facility] RkdqatnSEIUKCGRUVGS6103-23-10 11:35:0043[facility] ZTABCUXNTEQG9464-10-83 11:35:0098[facility] DxcmxibBFYMIEIRSKPX0589-08-98 11:35:00 3.2[facility] ExztwfzXVMTFKGCEOKK2708-03-09 11:35:0024[facility] HermannELECTROLYTES 2017-03-20 11:35:56189Adeyqtkg ZjscghsUXRPVIDYHEZK3142-14-01 11:35:002.70 [facility] RigrwljJMNPOEPTOQ6181-58-07 11:35:00 Test Item Value Reference Range Interpretation Comments PT (test code = PT) 14.4 s 12.0-14.7 [facility] OobxbwxBJTPWOPOBX8082-87-91 11:35:001.12[facility] HermannHEMATOLOGY 2017-03-19 11:42:001.20[facility] AidbliwYQUTVRENMP9197-54-16 11:42:00 Test Item Value Reference Range Interpretation Comments PT (test code = PT) 15.3 s 12.0-14.7 [facility] HermannCHEM YTFCT9681-48-26 14:57:002.3[facility] HermannCHEM PANEL 2017-03-18 14:57:002.9[facility] HermannCHEM OJUIW5683-15-16 14:57:002.0[facility] LshwdorDQBSSZCMPY7163-40-31 14:57:000.0[facility] SviwuhpRNQCCVNYCM0276-87-39 14:57:00 Test Item Value Reference Range Interpretation Comments PTT (test code = PTT) 38.2 s 22.9-35.8 [facility]DczffolGGMLWPAAJJ8238-35-64 14:57:00<10[facility]annHEMATOLOGY 2017-03-18 07:48:00 Test Item Value Reference Range Interpretation Comments PTT (test code = PTT) 49.8 s 22.9-35.8 [facility] TexasJvvcfljIJWZXDSGRL4642-04-33 02:24:00 Test Item Value Reference Range Interpretation Comments PTT (test code = PTT) 33.2 s 22.9-35.8 [facility] TexasPkzvpjlLZFHADDPBW0181-45-61 18:58:003.61[facility]annHEMATOLOGY 2017-03-17 18:58:05390Lgteokky UpgjipyOPIWIKQURX4836-46-75 18:58:00Negative 1(03/17/17 12:58 PM)[facility] TexasYwhkdvoHDPDAUPKUN3016-41-83 18:58:00 Test Item Value Reference Range Interpretation Comments Pat Od Value (test code = Pat Od 0.069 1 Value) [facility] JjevjosUFTINOTFNG0912-61-58 18:58:00 Test Item Value Reference Range Interpretation Comments Pos CO Value (test code = Pos CO 0.400 1 Value) [facility] HermannCHEM IQOXX2131-55-67 10:09:003.0[facility] HermannCHEM PANEL 2017-03-17 10:09:002.4[facility] HermannCHEM VKGMC2174-93-68 10:09:002.3[facility]annURINE AND KFRYW2439-17-76 02:57:006.0[facility]annUR[facility] AND STOOL 2017-03-17 02:57:001.012[facility]annURINE AND GREDP4752-67-26 02:57:00 <=1.0[facility]annUR[facility] AND QGACF5162-56-93 02:57:001[facility]UR[facility] AND DEFMX4528-52-47 02:57:00Negative (03/16/17 8:57 PM)[facility] HOXFF8961-85-10 02:57:00Negative (03/16/17 8:57 PM)[facility] AND EYVRY5146-53-63 02:57:00Negative (03/16/17 8:57 PM)[facility] AND RBBJS3380-39-89 02:57:00Negative *NA*(03/16/17 8:57 PM)[facility] AND QVTMP4161-29-28 02:57:00Clear (03/16/17 8:57 PM)[facility]annURINE CHEM 2017-03-17 02:57:000.1[facility]annURINE IYQX2644-40-20 02:57:00None Seen (03/16/17 8:57 PM)[facility]annURINE UTRB6411-19-80 02:57:13895.00[facility]annURINE UMMO3505-19-97 02:57:0014.8[facility]annURINE FXNO8130-97-51 02:57:0033[facility] HermannCARDIAC CAQQANN2821-80-25 19:09:001.8[facility] CARDIAC GVKDHLD9762-07-60 19:09:30883Zylnlcyh HermannCARDIAC BKJMXQB2864-14-96 19:09:002.1[facility] HermannCARDIAC GHNAKLI0770-87-57 19:09:000.15[facility] HermannCARDIAC HFZOEDR4210-73-34 19:09:95959Lebluziz HermannCHEM NTNYH9080-74-07 19:09:000.07[facility] YdqnazpBCKPFLUPUN2844-81-85 19:09:0054[facility] XNOUDABZIBDY4812-66-99 09:32:0015.7[facility] QmfhlojEGKXRBWZATEW1890-99-06 09:32:0024[facility] SrufyiyGVBBTKCUGRRQ6970-31-35 09:32:49398Mmoanbfl Noel EROJMURLYRSI2638-50-61 09:32:003.7[facility] PuxkzlsGPZSEGFCLARH2138-59-46 09:32:33656Tzhrpfjc PxvakhaIBYXWEUSYERF9116-72-42 09:32:0043[facility] JXNRVILELJSN1086-68-64 09:32:007.9[facility] KmvaeneAYFDZLACHXHV2551-39-89 09:32:15714Ogsrjvjm PfoenkqLRCNMDOPRUNU1781-41-88 09:32:0034[facility] AIRIHXCCIRJA8407-23-79 09:32:001.70[facility] VgxfebdAHMEYJ6498-84-31 09:32:0017 [facility] GngwwojAVCNRJ0310-32-74 09:32:0031[facility] XfraovyFGCSFN5320-30-22 09:32:73127Sdpyerzc EyvjjuyTKDWNU8794-96-29 09:32:0085[facility] HermannLIPIDS 2016-03-11 09:32:001.89[facility] TxsaoniPSSGQG9320-55-06 09:32:0054[facility] HermannCARDIAC TVLVKNF8484-22-18 21:57:04568Mclcwmgp HermannCARDIAC ENZYMES 2016-03-09 21:57:002.0[facility] HermannCARDIAC WCCGNIV9866-78-79 21:57:000.19 [facility]annCARDIAC MWATOQW1210-29-69 21:57:001.7[facility] HermannCARDIAC UYBJAON5854-03-58 21:57:0084[facility] HermannCHEM TRFAY4249-86-08 21:57:0035 [facility] HermannCHEM PILVT8653-95-59 21:57:0029[facility] HermannCHEM PANEL 2016-03-09 21:57:003.8[facility] HermannCHEM TEVZO3645-58-19 21:57:008.2[facility] HermannCHEM BVUOA0798-09-35 21:57:23219Azofceln HermannCHEM RDMYM5655-95-97 21:57:80272Jnjzmatb HermannCHEM LVMLP0474-10-44 21:57:002.00[facility] HermannCHEM AXGEH8941-32-09 21:57:0034[facility] HermannCHEM LEIRT1570-95-18 21:57:22533 [facility]annCHEM EKGXV6428-35-11 21:57:0013.8[facility] HermannHEMATOLOGY 2016-03-09 21:57:0010.1[facility] BocjyhtUURSOIWKFK0829-60-84 21:57:56865Fnahybri XiwqbhyLDFYTRMASW4324-85-28 21:57:0018.7[facility] CdsyiumBDUTVDVZVA1102-46-05 21:57:0012.4[facility] XkxhxfdKRMXVDNILX8935-86-63 21:57:0032.0[facility] AYMIWFUBHC7091-85-60 21:57:00 Test Item Value Reference Range Interpretation Comments MCH (test code = MCH) 27.8 pg 27.0-31.0 [facility] KhwdrafCGBESVHUFD5151-10-40 21:57:0086.7[facility] HermannHEMATOLOGY 2016-03-09 21:57:0038.7[facility] JnnbtlzPUIGPCCISN4065-35-28 21:57:004.46[facility] EayrrtsHYKLGOYTYY5587-62-79 21:57:006.5[facility] DyjmtxlJINGFSYSJX9454-42-98 21:57:003.9[facility] HkrcwxeHEFVQFZDXE2816-34-94 21:57:002.0[facility] UYVXJBGPZH9492-02-83 21:57:004.1[facility] NqxtpjnZFZHLGLIYV5755-67-84 21:57:000.0 [facility] XvnftscFAZFDCEAPH8391-50-14 21:57:000.5[facility] HermannHEMATOLOGY 2016-03-09 21:57:001.7[facility] XjkyrraSXPRCJXQSP0634-15-06 21:57:000.1[facility] WkmrkwmRREEXEKWWR0269-80-63 21:57:000.3[facility] LhifzarKREBAAPKWL7067-95-06 21:57:0030.7[facility] KfnbcwcZNVWYLHMEY5597-72-96 21:57:0063.2[facility] URINE AND KUECY1199-88-97 21:57:006[facility]annURINE AND CWJSH7529-44-43 21:57:001[facility]annURINE AND RHJAQ9683-27-36 21:57:00Small *ABN*(03/09/16 4:57 PM)[facility]annUR[facility] AND PGIGH7223-17-50 21:57:00Negative (03/09/16 4:57 PM)[facility]annUR[facility] AND FVEOG9410-21-26 21:57:00<=1.0[facility]annURINE AND HRAED5890-40-86 21:57:00Negative *NA*(03/09/16 4:57 PM)[facility]annUR[facility] AND QZXJY1846-27-86 21:57:00Negative (03/09/16 4:57 PM)[facility]annUR[facility] AND IODKS1874-84-63 21:57:007.0[facility]annURINE AND STOOL 2016-03-09 21:57:00Clear (03/09/16 4:57 PM)[facility]UR[facility] AND STOOL 2016-03-09 21:57:00Light Yellow *NA*(03/09/16 4:57 PM)[facility]annUR[facility] AND YVZRF5953-69-81 21:57:001.009[facility] HermannCARDIAC SSGRVUJ8038-28-35 09:41:00 1.0[facility] HermannCARDIAC FUIOLCQ8543-92-29 09:41:000.9[facility] HermannCARDIAC TNVOCCN5143-15-03 09:41:000.17[facility] HermannCARDIAC FRKSTYZ0215-22-81 09:41:00 91[facility] FdyzlepHXAQHASTZVHK1097-16-41 09:41:0012.1[facility] QYBXPLGWRKFE4764-84-08 09:41:004.1[facility] OdmbobhENRRZJISURZH3240-26-23 09:41:65550Njnjvkhz DzohdlvXJEUFNLPCAFL0773-63-18 09:41:0034[facility] FIVNUHSLNQOI9583-99-93 09:41:0030[facility] GbzdcaxNIOJLEOKOGHE8854-30-42 09:41:00 8.5[facility] WluydbmKZFSIWDZJWBP6381-78-58 09:41:0093[facility] HermannELECTROLYTES 2016-01-18 09:41:0027[facility] NlvlwxcKDOIUJQXSUBY7150-74-52 09:41:002.05[facility] RvzizfdZBFXACZJIQJB7527-85-99 09:41:63348Vwnnjkpv SeevmtuMEVOLCRCTB3453-05-90 09:41:0087.5[facility] AtubnxeWPASSDDVEC6949-90-12 09:41:00 Test Item Value Reference Range Interpretation Comments MCH (test code = MCH) 28.0 pg 27.0-31.0 [facility] XrjuyiwXYEGJQMGNO0447-23-82 09:41:0017.7[facility] HermannHEMATOLOGY 2016-01-18 09:41:0032.0[facility] DschqehTWZFAIDVPL6555-68-77 09:41:008.8[facility] MnjdkswHQLFBECTSP4450-54-34 09:41:76776Okfbqxuh JyxbjfcJIJMZENWCY0876-05-19 09:41:005.2[facility] YupxjmdNNLZMPCHLG3581-70-35 09:41:0032.9[facility] BNCVDCVNXN5177-00-48 09:41:0010.5[facility] KuotwrwCMDHJGZNDV4439-61-69 09:41:00 3.76[facility] StmurkpWZUPDGXUZI6992-97-99 09:41:005.9[facility] HermannHEMATOLOGY 2016-01-18 09:41:0053.3[facility] OwudncmBLNYPRTCAF2796-77-53 09:41:003.7[facility] CukdmuhVDOTONDOGS7724-89-99 09:41:0036.8[facility] EskqgmzMPETJDSKWZ6836-22-97 09:41:001.9[facility] VxxscycCRHPHEOUNB7667-51-32 09:41:000.3[facility] QBGCRZDBCN3003-03-69 09:41:002.8[facility] RhyvtxgFKKHGZVEZG1129-91-90 09:41:000.0 [facility] CwjybuwAUXYSDWVPK7044-04-54 09:41:000.3[facility]annHEMATOLOGY 2016-01-18 09:41:000.2[facility] SlsvgirILIAZS3428-44-03 09:41:0017[facility] AgdkqngHQWSMV1627-48-49 09:41:0034[facility] RhlimdoFCMWVR9227-06-22 09:41:0084 [facility] TdrxqauECSTHK5488-57-95 09:41:0051[facility] UemursyYYXJTX9316-88-74 09:41:15274Mxneteqd RievfpvXIRBVP9333-61-30 09:41:002.00[facility]annCARDIAC JCDEWWU9458-31-77 02:20:001.3[facility]annCARDIAC XWYQYXU7076-58-26 02:20:00 1.2[facility]annCARDIAC YCWXSWR7763-92-67 02:20:000.16[facility]annC[facility]AC QNNOJGP1686-78-19 02:20:0095[facility] ZfdcpwmIDMSXWRGYG7895-43-58 02:20:00 Test Item Value Reference Range Interpretation Comments PTT (test code = PTT) 28.0 s 22.9-35.8 [facility] FvknnifHJNUBSYRLF4004-93-03 02:20:001.22[facility]annCARDIAC ENZYMES 2016-01-17 21:51:001.6[facility] AVZMNXN2412-90-89 21:51:000.18 [facility] YUYJWPN3849-68-35 21:51:33748Zkwpuknx HermannCARDIAC ZKEDYNT0987-97-62 21:51:44199Seyxeimt HermannCARDIAC RFDQIGA5405-24-56 21:51:00 1.5[facility]annCHEM TFQOX9366-16-94 21:51:0035[facility]annCHEM PANEL 2016-01-17 21:51:000.6[facility]annCHEM THBAO9281-90-45 21:51:005.1[facility]annCHEM ZFJTO1681-99-13 21:51:0013[facility]annCHEM NDCYA3424-79-41 21:51:0082[facility]annCHEM JJBGA3397-87-68 21:51:0011.9[facility]annCHEM DKSQY3137-91-33 21:51:000.3[facility]annCHEM TCRYX7799-87-60 21:51:0012 [facility]annCHEM OPQJG6556-01-37 21:51:0014[facility]annCHEM PANEL 2016-01-17 21:51:003.1[facility]annCHEM QGBET7554-95-16 21:51:0027[facility]annCHEM HBSYR6722-44-43 21:51:12241Xmtomriv HermannCHEM GFTOS7823-10-28 21:51:008.2[facility]annCHEM KJGPX9352-22-38 21:51:008.1[facility]annCHEM TFNYM7176-67-37 21:51:002.02[facility]annCHEM ZPNRH6416-17-59 21:51:0028 [facility]annCHEM FCAHE5513-35-23 21:51:29892Chshunvb HermannCHEM PANEL 2016-01-17 21:51:003.9[facility]annCHEM CTTRJ5815-09-39 21:51:38137Nquxibhp GgiiyncQPYNKJHPLV0153-35-43 21:51:0032.7[facility] HkbyowaKNYKJIBGDB4089-69-51 21:51:0087.5[facility] PzoovkfQJOMYWKHVF0169-06-10 21:51:00 Test Item Value Reference Range Interpretation Comments MCH (test code = MCH) 28.0 pg 27.0-31.0 [facility] FrdzgwrJRZFOZPYXF9972-41-07 21:51:0032.0[facility]annHEMATOLOGY 2016-01-17 21:51:0017.9[facility] GjxexfhGVWDUCEPZX1027-94-24 21:51:81826Hqrmcxaf ZhwgghfVWWMEPSMBY1617-80-10 21:51:008.3[facility] YppahqzNTLPEPXNGF2906-84-76 21:51:005.5[facility] MxcevztDHOUGBDWXY6614-40-07 21:51:003.73[facility] NKNWADXLCZ6718-61-32 21:51:0010.4[facility] MhhtgaqCZUEUJQWAI5258-10-20 21:51:00 33.3[facility] DgetjqcGDUECVFBRC8956-34-07 21:51:002.5[facility]annHEMATOLOGY 2016-01-17 21:51:005.8[facility] NdojjfjWHAGJFPKDS1064-37-94 21:51:000.3[facility] XohntnwXRVYDIMZFE2295-54-73 21:51:003.2[facility] EvnqychLTLGDYGAQR7563-46-96 21:51:001.8[facility] XmhcxmkJIDAFXMMMQ7391-09-05 21:51:000.3[facility] TNSNAKZTWO6829-28-41 21:51:000.1[facility] FxeixksSXZZNGAKYQ9606-15-17 21:51:000.0 [facility] AfooryaLYGOEVVNII9590-72-44 21:51:0058.1[facility]annCHEM PANEL 2015-05-28 21:44:0047[facility]annCHEM DMYJO7289-86-54 21:44:0012[facility]annCHEM EFLNR3057-18-46 21:44:003.5[facility]annCHEM ZROAA2885-50-41 21:44:007.7[facility]annCHEM LXYNY6776-80-96 21:44:0076[facility]annCHEM KUOOK3683-80-80 21:44:000.4[facility]annCHEM RAZDK1362-83-74 21:44:0017 [facility]annCHEM GTLOT5576-05-64 21:44:001.60[facility]annCHEM PANEL 2015-05-28 21:44:64347Vbusyuts HermannCHEM MGEMW7217-17-79 21:44:004.3[facility]annCHEM GLCRG1415-78-15 21:44:44799Lygjbfgq HermannCHEM ALNVL3897-90-96 21:44:008.5[facility]annCHEM HHBHU7282-12-28 21:44:0028[facility]annCHEM IUREN3971-02-94 21:44:0082[facility]annCHEM KSFNR2539-71-17 21:44:0027 [facility]annCHEM WVUWH7431-26-37 21:44:000.8[facility] HermannCHEM PANEL 2015-05-28 21:44:004.2[facility] HermannCHEM MWAQY3825-82-21 21:44:0010.3[facility] HermannCHEM WPNOZ2784-67-07 21:44:0017[facility] EscqvocNWPSDOLTZI2615-45-88 21:44:00 Test Item Value Reference Range Interpretation Comments PTT (test code = PTT) 23.6 s 22.9-35.8 [facility] UvhpuzqQZDMOHPZVW1728-80-69 21:44:001.12[facility]annHEMATOLOGY 2015-05-28 21:44:00 Test Item Value Reference Range Interpretation Comments PT (test code = PT) 14.7 s 12.0-14.7 [facility] HrahrrtHAUUWDNBOJ8522-50-19 21:44:0072[facility]annHEMATOLOGY 2015-05-28 21:44:009.8[facility] HextjecCIZFNCZECL8453-40-89 21:44:0018.5[facility] JbxueexUCYUKQEYBD3666-27-18 21:44:0033.3[facility] EmultnjUFSOWMPZRD9961-89-35 21:44:0087.0[facility] YehuraeXYLYANIIDX1892-66-88 21:44:00 Test Item Value Reference Range Interpretation Comments MCH (test code = MCH) 28.9 pg 27.0-31.0 [facility] LwzxyeqAHOQDMWGJP3198-28-02 21:44:0036.7[facility]annHEMATOLOGY 2015-05-28 21:44:0012.2[facility] ThvtaesCVNALWHQTJ0090-43-95 21:44:004.22[facility] VhotjvtSVIIBWBEEE1605-46-25 21:44:005.9[facility] IjiebclIPORTKSDXD9655-60-39 21:44:000.1[facility] JhhvjnqFVTPHATHXY3674-35-28 21:44:000.0[facility] TSLILZXHUL9647-18-55 21:44:000.5[facility] IbsjrwtLHCNRYFMJM8447-14-49 21:44:001.7 [facility] FaymqfbYQTZWOOEMK8491-89-40 21:44:003.6[facility]annHEMATOLOGY 2015-05-28 21:44:002.3[facility] AhqnuxsXHQBESBKBA6860-35-47 21:44:008.0[facility] WlhowslHSVJHJQKCW9094-85-63 21:44:0028.5[facility] BirepbxZUBSDWFJXY2409-85-48 21:44:000.3[facility] RsqqrzhNHZUGFPLPC1685-35-47 21:44:0060.9[facility] URINE AND SSNPJ2168-10-83 21:44:00None Seen (05/28/15 3:44 PM)[facility] XUQVG7381-81-69 21:44:00None Seen (05/28/15 3:44 PM)[facility] XFZJG7358-55-10 21:44:00Large *ABN*(05/28/15 3:44 PM)[facility] YQUBM3529-95-75 21:44:000.2[facility]annUR[facility] AND QJKPB6382-40-08 21:44:00Positive *ABN*(05/28/15 3:44 PM)[facility] NAMRZ4263-14-61 21:44:00 Test Item Value Reference Range Interpretation Comments UA Spec Grav (test code = UA Spec 1.015 1 Grav) [facility] YXRGI6411-43-83 21:44:00Slight Cloudy (05/28/15 3:44 PM)[facility] UXOLA1657-12-29 21:44:00 Test Item Value Reference Range Interpretation Comments UA pH (test code = UA pH) 7.0 1 5.0-8.0 [facility] UAPVB4296-19-30 21:44:00Yellow *NA*(05/28/15 3:44 PM) [facility] PAHRL3441-92-45 21:44:00Negative (05/28/15 3:44 PM) [facility] UQPDK6258-24-13 21:44:00Negative *NA*(05/28/15 3:44 PM) [facility] WKHJP0756-13-48 21:44:00Moderate *ABN*(05/28/15 3:44 PM)[facility] JPYOB2197-57-24 21:44:00Negative *NA*(05/28/15 3:44 PM)[facility] UtqeaquDAFPHSTPND7057-17-86 20:07:00 Test Item Value Reference Range Interpretation Comments POC PT (test code = POC PT) 12.2 s 12.0-14.7 [facility] MqhwhunXFARQOCWZU5497-19-68 20:07:001.0[facility]annCARD[facility] ENZYMES 2015-04-22 00:26:000.9[facility] NXRPXTQ6921-73-97 00:26:000.20 [facility] JACFBFN5613-20-60 00:26:001.6[facility]annC[facility]AC KIWQLNS0095-58-69 00:26:02160Kkyhqjhc [facility]annCARDIAC ROKDTPT2344-16-76 17:11:00 0.24[facility]annC[facility]AC HRMLPLC8685-22-61 17:11:002.3[facility]annCARD[facility]AC MULZCVL7436-23-73 17:11:09074Zktiebdb [facility]annCARDIAC BMOYOIK6605-21-70 17:11:00 1.7[facility]annCARDIAC BNORELT1924-65-45 09:10:04616Bjkypbbg [facility]CARD[facility]AC PAQLXLN2676-04-61 09:10:001.8[facility]annCARDIAC JPZNVVG1460-28-66 09:10:00 0.24[facility]annCARDIAC ODYXAGQ7907-44-96 09:10:32471Pepmdfci [facility]annCARDIAC ICHMVAL9717-50-80 09:10:001.4[facility]annCHEM QZRWL0087-69-27 09:10:002.2 [facility]annCHEM EYFBD1360-48-51 09:10:002.0[facility]annCHEM PANEL 2015-04-21 09:10:0097[facility]annCHEM BFEHK4935-34-19 09:10:0020[facility]annCHEM AMCHM9875-40-18 09:10:006.9[facility]annCHEM ZLAEQ5273-40-07 09:10:003.1[facility]annCHEM ZWJAY5402-32-87 09:10:0018[facility]annCHEM WNXIG1688-31-01 09:10:001.70[facility]annCHEM IAKQB1166-71-08 09:10:96174 [facility]annCHEM CUNRY7264-70-97 09:10:77724Vkjexvaw HermannCHEM PANEL 2015-04-21 09:10:0073[facility]annCHEM BDBOM2303-28-55 09:10:003.6[facility]annCHEM WADGD5808-01-00 09:10:0024[facility]annCHEM FBPMU6825-69-01 09:10:0043[facility]annCHEM VDEBD6905-81-56 09:10:008.2[facility]annCHEM JPIKV2659-57-25 09:10:0027[facility]annCHEM MRZXY0230-05-28 09:10:000.5 [facility]annCHEM IDNFQ4672-26-82 09:10:0012[facility]annCHEM PANEL 2015-04-21 09:10:003.8[facility]annCHEM XMUIA0029-33-20 09:10:000.8[facility]annCHEM VQFCG1325-68-13 09:10:0011.6[facility] PzpxdcyUJVJEJLTIK9123-79-20 09:10:0088.7[facility] GxbrxxeHUMHEQFIDV3762-65-02 09:10:003.94[facility] XPQCQMZUYG8484-04-09 09:10:0011.1[facility] JwdvbwhSTRFTMBJZU1475-32-26 09:10:00 4.8[facility] JfpdzdnLYYYCXLQVE1309-16-14 09:10:0035.0[facility] HermannHEMATOLOGY 2015-04-21 09:10:0085[facility] YzmpudaAATWRAMSHM8339-48-88 09:10:00 Test Item Value Reference Range Interpretation Comments MCH (test code = MCH) 28.3 pg 27.0-31.0 [facility] KyaxfuyNROOUQLMIA2016-59-16 09:10:0031.9[facility] HermannHEMATOLOGY 2015-04-21 09:10:0017.7[facility] DzjhsxvWVOSHBZYIK0181-83-64 09:10:0010.2[facility] YixkclwPENADVGBCM5641-59-07 09:10:0029.8[facility] AetdvtwXWRMCSIPNI9419-00-56 09:10:005.3[facility] XmxitpjKFYCAUZRCX6414-67-34 09:10:003.2[facility] ONHGDLSHTQ8628-48-45 09:10:0061.4[facility] DbafpdcHNRNSUBPOL2732-57-11 09:10:00 3.0[facility] JifzceyAOPXDRZTFQ5534-90-85 09:10:001.4[facility] HermannHEMATOLOGY 2015-04-21 09:10:000.3[facility] DgjmhihUMCOWHTHQJ3787-30-11 09:10:000.0[facility] QuykfwkMHZIIVCZOD3293-77-48 09:10:000.3[facility] IgygznxPXBKHIBFII5235-22-18 09:10:000.2[facility] HelxgmpIRAMLE7055-59-89 09:10:002.04[facility] HermannLIPIDS 2015-04-21 09:10:0014[facility] QtxxqhpXQKGVQ0195-98-04 09:10:0033[facility] GBDWFV5160-82-77 09:10:0092[facility] SfhxygiZTVZTG3547-38-17 09:10:0045[facility] BdyztihTGSLJY4684-65-13 09:10:0070[facility]annSPECIAL VGYQIKPWD6533-67-62 09:10:005.7[facility]annCARDIAC FUWNQOT3408-02-10 22:04:0066[facility] CHEM LSLXR6683-30-99 22:04:0038[facility] HermannCHEM IAFIE2253-37-53 22:04:0020 [facility]annCHEM NYPGP3595-93-83 22:04:52169Ecbsnabl HermannCHEM PANEL 2015-02-02 22:04:0016[facility] HermannCHEM WGHEP4690-51-32 22:04:000.7[facility] HermannCHEM ZUVAW9479-51-88 22:04:003.4[facility]annCHEM MFPZK0546-02-65 22:04:50113Iifmupnp HermannCHEM OTPJZ5371-36-03 22:04:003.4[facility]annCHEM YTPLZ5812-07-99 22:04:008.3[facility]annCHEM APNYR0961-12-25 22:04:0025 [facility]annCHEM XCMSF1933-24-62 22:04:008.7[facility]annCHEM PANEL 2015-02-02 22:04:0013[facility]annCHEM DMREK1419-30-71 22:04:16193Uaozavjs HermannCHEM YPHGS6842-22-30 22:04:001.9[facility] HermannCHEM NUISY6974-57-37 22:04:78878Cbcvnbfi HermannCHEM WHPXK2979-54-43 22:04:000.7[facility] HermannCHEM UIAFW9105-03-20 22:04:007[facility]annCHEM OBTUI5801-96-23 22:04:004.9 [facility]annCHEM IYKDJ6478-76-86 22:04:0010.4[facility] HermannHEMATOLOGY 2015-02-02 22:04:0016.8[facility] YdsebvpHCJJSKHESA4580-02-11 22:04:41137Dakpprcn SqbuhkbNWZPOIEQWA0168-54-04 22:04:008.2[facility] OhimwbqRDJESOGZQT7656-54-38 22:04:005.1[facility] BkhlwgcWKBVWJPVKW8296-15-83 22:04:0011.3[facility] ETCSDUZKUM7059-13-71 22:04:0036.3[facility] NmaidotNFNZDOAQOB2242-90-76 22:04:00 31.2[facility] CwbboznBYPKJVNASY4588-43-18 22:04:004.04[facility] HermannHEMATOLOGY 2015-02-02 22:04:0089.8[facility] XgsvvfoYTIEOWGJBG3289-88-14 22:04:00 Test Item Value Reference Range Interpretation Comments MCH (test code = MCH) 28.0 pg 27.0-31.0 [facility] ZahyoqzHUIMEVOKEQ0171-22-96 22:04:003.3[facility] HermannHEMATOLOGY 2015-02-02 22:04:000.6[facility] GdgecorEIBFFNXGLI4259-08-56 22:04:000.4[facility] EerlnmeXPKIFPLBXX7829-87-75 22:04:000.0[facility] KvpgwlaOREBFAXGDZ2510-57-06 22:04:0065.9[facility] JzxlmshRHWCZPHHJX4325-36-14 22:04:003.3[facility] ZQSEDLVRFE1861-37-91 22:04:007.0[facility] UkukbzoRVEXGWXASF0491-06-20 22:04:001.2 [facility] RjwwvcwOTBVBFBTBU9004-83-31 22:04:000.2[facility] HermannHEMATOLOGY 2015-02-02 22:04:0023.2[facility]annCARDIAC GJYLBVZ2779-23-38 03:14:06925 [facility] EoxhccaLCIJZLMLOZ7403-58-96 03:14:001.01[facility]annHEMATOLOGY 2014-07-07 03:14:00 Test Item Value Reference Range Interpretation Comments PTT (test code = PTT) 27.2 s 22.9-35.8 [facility] FgxeximNGTOEFFJVK4068-93-82 03:14:00 Test Item Value Reference Range Interpretation Comments PT (test code = PT) 13.3 s 12.0-14.7 [facility]annCARDIAC BSYZCCQ3170-17-87 02:57:000.8[facility]annCARDIAC BWIBJGD6135-53-02 02:57:02231Nclfsnya HermannCARDIAC PTVEVUZ0874-69-10 02:57:00 1.0[facility]annCARDIAC ECHOPOX0245-22-12 02:57:000.28[facility] HermannCHEM UZFXV5293-81-62 02:57:0034[facility]annCHEM HLYTR8252-57-46 02:57:92467 [facility]annCHEM VZLUK9538-55-00 02:57:0030[facility]annCHEM PANEL 2014-07-07 02:57:0077[facility] HermannCHEM FCMNX4450-00-52 02:57:003.7[facility] HermannCHEM ABTPC4095-30-86 02:57:0018[facility]annCHEM NQAKN3411-96-33 02:57:0018[facility]annCHEM HVOZU3738-53-67 02:57:008.5[facility]annCHEM TKXPY5311-80-07 02:57:008.0[facility]annCHEM GSPXD3039-34-71 02:57:0010.1 [facility]annCHEM MTXVR0282-59-29 02:57:000.4[facility] HermannCHEM PANEL 2014-07-07 02:57:004.3[facility] HermannCHEM DDWLY9655-55-22 02:57:0021[facility]annCHEM IZOEF2864-64-55 02:57:000.9[facility] HermannCHEM WUASI0688-21-81 02:57:21090Ljsaavog HermannCHEM NSCLP4869-27-05 02:57:0044[facility]annCHEM CSVEF9092-71-55 02:57:29624Qfqpvjmj HermannCHEM XSERZ9323-36-64 02:57:002.1 [facility]annCHEM QBUEA8536-95-26 02:57:004.1[facility] HermannHEMATOLOGY 2014-07-07 02:42:000.4[facility] MtgnztrHIESVTLFGK0698-04-19 02:42:000.2[facility] QrvpbksWGBGCLNAMI0183-93-53 02:42:000.0[facility] NmhigobSWVDZGXCQR5350-07-93 02:42:006.4[facility] XlyhrmtAIGENMKXRX0096-48-49 02:42:002.6[facility] AQOFUJCDZJ5970-56-97 02:42:000.3[facility] MgzbpxmORIHNYTLFI8607-93-95 02:42:004.5 [facility] YxuwqyxSVQHSQKZGI5573-99-27 02:42:001.5[facility] HermannHEMATOLOGY 2014-07-07 02:42:0068.3[facility] GgmfcfaKZMSUMTOKR5721-46-88 02:42:0022.4[facility] TxjynjmBEIYHDJDRA7154-07-87 02:42:0033.7[facility] LexalyqZUZFZMAERW6918-14-46 02:42:0035.8[facility] RggnkpuYERNROFTWF6963-41-73 02:42:0080.3[facility] MUDUKTUOHI5284-26-33 02:42:00 Test Item Value Reference Range Interpretation Comments MCH (test code = MCH) 28.7 pg 27.0-31.0 [facility] NuhicxdMKDSFNONPV2535-00-41 02:42:52848Wvrhsevh HermannHEMATOLOGY 2014-07-07 02:42:0010.1[facility] UpuvfrlFZGIDFGGAR7673-90-79 02:42:0018.6[facility] OpsnxpsFEVXSQQTDF0078-65-83 02:42:004.19[facility] XflfeysSQBIXHZODZ2505-81-28 02:42:0012.0[facility] RzytcmaYNAJWEBKBL5298-19-86 02:42:006.5[facility] HermannCHEM PGJLJ3773-31-32 12:54:0034[facility] HermannCHEM OZSLO8991-06-27 12:54:0024 [facility]annCHEM XXXEF2359-39-54 12:54:80815Tjymqekq HermannCHEM PANEL 2014-04-02 12:54:004.2[facility] HermannCHEM ANULE0791-06-60 12:54:001.24[facility]annCHEM CENGK9316-04-96 12:54:71197Clfsqepa HermannCHEM SCLID5967-15-04 12:54:002.1[facility] HermannCHEM BWSSY6824-72-88 12:54:0011.2[facility] HermannCHEM ZAFGF7219-06-65 12:54:0028[facility] HermannCHEM ASMVP8851-18-25 12:54:57062 [facility]annCHEM UBYSU9603-90-73 12:54:0021.0[facility] HermannCHEM PANEL 2014-04-02 12:54:0033.0[facility] HermannBLOOD BANK HTNFDWJ5188-93-29 17:25:00 Negative (03/30/14 11:25 AM)[facility]annBLOOD BANK UALELPO6000-76-00 17:25:00Product available (03/30/14 11:25 AM)[facility] HermannELECTROLYTES 2014-03-30 17:25:0010.7[facility] SnjqzsyMICOHEXUUSMP0375-76-93 17:25:0034[facility] KcqfeldYVAJIBAVSUJS2427-04-07 17:25:15822Czenphmd CpjnpfkRNNQYAAXAAQB8948-14-34 17:25:002.1[facility] VlaeqahPRGZHDAKBCGW8153-09-03 17:25:0034[facility] AJEWFBQFLKTA3091-80-43 17:25:003.7[facility] LqklwktFBDFKJUAZCXG9900-08-94 17:25:0030[facility] TxzsxunYMJWSRGSTUNI7899-11-00 17:25:64031Jntgutjn Rowdy ZYXHVTOZPVTF3209-46-43 17:25:008.6[facility] HytdmrwPPSBBZSOZGER8118-92-44 17:25:0088[facility] YwusepcXJHQTVAZNU6140-38-07 17:25:00 Test Item Value Reference Range Interpretation Comments PTT (test code = PTT) 27.7 s 22.9-35.8 [facility] XzirzklJOZEQQOMSB7983-88-85 17:25:003.57[facility] HermannHEMATOLOGY 2014-03-30 17:25:004.9[facility] GcguioeHUSSMWABAE8380-65-77 17:25:0030.9[facility] FiufpriQQWARFUAHB4732-74-84 17:25:0010.1[facility] SodfnghYWUIPXQOUQ9876-93-81 17:25:00 Test Item Value Reference Range Interpretation Comments MCH (test code = MCH) 28.2 pg 27.0-31.0 [facility] JplgkoqRFDSMCUXHW4081-28-04 17:25:0086.5[facility] HermannHEMATOLOGY 2014-03-30 17:25:0032.6[facility] RczumbjGTDHSPEZEV1092-35-79 17:25:0018.3[facility] UbfkypbWLSXCJZTTY4072-20-51 17:25:009.1[facility] FxpexrzSQMQTRJAIM9776-17-77 17:25:35941Dvlucpdb PjzzwuoKTQKLXWGMI3994-14-03 17:25:003.5[facility] QSZFARDGMP0398-73-92 17:25:005.1[facility] HmpabnnXMWCFSBJBM7304-06-96 17:25:001.2 [facility] SjoflbkSEOCLABPXW5251-54-61 17:25:003.3[facility] HermannHEMATOLOGY 2014-03-30 17:25:000.2[facility] WngajogDKVJQZRIOY4493-55-10 17:25:0023.7[facility] HdnhtjmZLQWEGETMP5250-65-78 17:25:0067.4[facility] AozbuhaGLGRNRGKHG0880-01-92 17:25:000.3[facility] SubaqdkHGDXIARENL2598-56-99 17:25:000.3[facility] VBXSGXQCTE5488-48-01 17:25:000.0[facility] BetiufsGBHDFBTPKR9671-50-18 17:25:00 Normal (03/30/14 11:25 AM)[facility] WmdaiimKRJACNMFRU1418-30-40 17:25:00Normal (03/30/14 11:25 AM)[facility] SgwnussKMPINMJLDZ5281-41-58 17:25:001.08[facility] NnjagpxBRGTVZPABG7764-22-90 17:25:00 Test Item Value Reference Range Interpretation Comments PT (test code = PT) 14.1 s 12.0-14.7 [facility] WbkzfftZUSYZDNCWDHE9346-72-33 10:15:0010.4[facility] HermannELECTROLYTES 2014-03-05 10:15:0038[facility] EfigpvoKWFQASAOFZAI7852-23-56 10:15:0031[facility] MnleqfjSHLWUDUIKLNI7672-98-87 10:15:008.4[facility] DukuayvJWJDIIOMAKPW4249-70-08 10:15:41980Obtwnttf EkfwgigWXNECMGONBTI7837-18-06 10:15:003.4[facility] BUNRQHADXUCU9629-71-13 10:15:25586Jkkeukiu ZfdhunuKMNHFKRVISEB3908-71-77 10:15:0013[facility] KkbdpukQNWITEZPFUGI6467-96-74 10:15:001.9[facility] QMWDDPMYPIWV0070-96-36 10:15:0080[facility] EymcbwrNOPESGTETA5715-95-91 10:15:00 6.9[facility] IwnzsfgXPFORJXMRQ6119-19-13 10:15:000.8[facility] HermannHEMATOLOGY 2014-03-05 10:15:003.8[facility] ZdaijysPVSZXPRPVK9954-46-06 10:15:000.4[facility] OsotqsqMLCHEPQEXZ7438-52-20 10:15:000.2[facility] JydsatlSNXNPPIPVT2614-52-55 10:15:0023.4[facility] XsbzxepWYROGARYDR0800-00-43 10:15:0065.1[facility] GEKHFVUCDE6977-67-04 10:15:001.3[facility] TdymqfwZOUGHHEAZZ3282-11-85 10:15:003.7 [facility] UchqufoYNDKJPDKGT5298-41-33 10:15:0032.3[facility] HermannHEMATOLOGY 2014-03-05 10:15:0016.7[facility] DixxwfuNJLGVRERAD4461-83-45 10:15:0093[facility] WxvreclBHNPYRNLSF4528-75-14 10:15:009.2[facility] HrqkkncZEEWAOVIJJ5089-41-20 10:15:00 Test Item Value Reference Range Interpretation Comments MCH (test code = MCH) 29.2 pg 27.0-31.0 [facility] BnzlazdZRVWRKEUWX8721-89-40 10:15:005.7[facility]annHEMATOLOGY 2014-03-05 10:15:0090.6[facility] CteqrpxIOMLVDXQTG1804-50-99 10:15:0034.5[facility] LqioeavSYIEGWVHZI0153-35-95 10:15:003.81[facility] JjljbwhKXGFFJGPNC7796-31-61 10:15:0011.1[facility] UearpwzDKILUVEFNR7469-31-59 19:39:00<0.2[facility] HDLATGTCVT2945-97-78 19:39:00<0.2[facility] TtppmzlPHNDSHARGT0552-59-26 19:39:00Negative (03/04/14 2:39 PM)[facility] ShuacdvAGDSIUHUKU7646-65-51 19:39:00 <0.2[facility] DvmfflsSKEJOVRWHL8616-15-13 19:39:00<0.2[facility] MNWPSSFFKH4286-03-38 19:39:001:40 *ABN*(03/04/14 2:39 PM)[facility] VXMJNIUCPN7175-68-44 19:39:00<10[facility] PybmsuxEROFFEPVUP4196-23-75 19:39:00 Positive *ABN*(03/04/14 2:39 PM)[facility] HermannSPECIAL FMOEAQGTP0409-32-30 19:39:0019[facility] HermannTHYROID XTZGD6816-11-85 19:39:004.580[facility] PHKDOVSFGQ5090-63-22 10:10:0067.4[facility] OcdbcifTTBSGQFZQX5265-11-47 10:10:00 10.4[facility] ZlsiqudIQLMBODLWV8427-21-93 10:10:003.50[facility]annHEMATOLOGY 2014-03-04 10:10:006.3[facility] PpozpgtJTNGBHSSYT5224-86-14 10:10:0032.9[facility] WmmynraXQYNFUZXHU9049-12-56 10:10:0083[facility] IwxbpqpIWZRJMNFPQ0326-63-03 10:10:0016.4[facility] VcfdkypYIRTFLBAXN5154-95-86 10:10:008.8[facility] KMWQGZUIST0594-50-98 10:10:00 Test Item Value Reference Range Interpretation Comments MCH (test code = MCH) 29.5 pg 27.0-31.0 [facility] AyfspwyKAWLKLOSFR3845-82-71 10:10:0089.7[facility] HermannHEMATOLOGY 2014-03-04 10:10:0031.4[facility] HermannCHEM VMXHQ5860-21-52 10:10:0044[facility] HermannCHEM OIMXC5117-39-06 10:10:008.3[facility] HermannCHEM XTQMJ9262-83-74 10:10:87389Aaukhruv HermannCHEM CAZPP7249-85-44 10:10:003.5[facility] HermannCHEM THVMF0392-04-29 10:10:34659Ubdhiqeq HermannCHEM WNJMT8226-94-93 10:10:0029 [facility]annCHEM OECQF8532-21-66 10:10:001.7[facility] HermannCHEM PANEL 2014-03-04 10:10:0012[facility] HermannCHEM DWMXS3837-72-30 10:10:0084[facility] HermannCHEM QJSKY4984-34-49 10:10:0010.5[facility] VnqdmmdJOBPNKRKVY1683-36-98 10:10:001.4[facility] BunrtjyQWJPWCZHBB4792-34-53 10:10:004.3[facility] IISYQUKDSH9237-62-73 10:10:000.7[facility] OfvryraVIBCOJTSSI5890-72-33 10:10:004.0 [facility] AlnjzyhHLRVFWWPMH0555-06-25 10:10:000.3[facility] HermannHEMATOLOGY 2014-03-04 10:10:000.4[facility] LgqoavjINVKVQDXVF8371-20-97 10:10:005.7[facility] MvlvqrcSBUEAFKFJM0286-78-92 10:10:0022.2[facility] HermannCHEM DEOKP6224-66-19 11:05:0044[facility] HermannCHEM NOMJQ5167-30-08 11:05:0030[facility] HermannCHEM VIZEU8926-05-28 11:05:008.5[facility] HermannCHEM KDUFC1694-74-99 11:05:001.7 [facility] HermannCHEM WXATT7063-06-86 11:05:0013[facility] HermannCHEM PANEL 2014-03-03 11:05:0090[facility] HermannCHEM KPURJ5813-75-82 11:05:74741Whapsktg HermannCHEM RLVYF2836-37-09 11:05:003.6[facility] HermannCHEM ISTXM5142-35-03 11:05:03710Ohisjyxc HermannCHEM DQVCW8131-54-90 11:05:0010.6[facility] OSDOAVEAYB0033-51-69 11:05:009.3[facility] QjtgcjuTRQYFEYQTE0028-22-36 11:05:00 3.54[facility] FjmyutcMWUNQHWQXQ6610-91-39 11:05:006.2[facility] HermannHEMATOLOGY 2014-03-03 11:05:0010.4[facility] JfqazrrCYTQQHTLWF3257-66-27 11:05:0032.0[facility] YigqlysVWEMXNLRVW3817-16-50 11:05:0090.5[facility] NwtdemcZQANJGFJWV6499-21-44 11:05:00 Test Item Value Reference Range Interpretation Comments MCH (test code = MCH) 29.4 pg 27.0-31.0 [facility] MtvuzbxRDTOCFVRQN6960-75-08 11:05:0017.2[facility] HermannHEMATOLOGY 2014-03-03 11:05:0032.5[facility] YktkfdgLIOGMIMGQL9298-93-33 11:05:81374Oeahztvb MpihuxnRQYDHVERZQ9463-10-67 11:05:000.0[facility] VdusuyhWYCXIMYAHW5777-00-35 11:05:000.3[facility] KzjgbrhVLTZBQKIFX3509-21-76 11:05:001.3[facility] VFBROPTVTS0164-70-06 11:05:004.2[facility] XskfgjoYNZFBEDXVQ7940-87-40 11:05:000.3 [facility] InzvjpxSAUQEBJJVJ7960-31-01 11:05:000.3[facility] HermannHEMATOLOGY 2014-03-03 11:05:005.4[facility] YidgjlfPQPODNALTE5463-65-01 11:05:005.2[facility] UtjtkqhEWVWJHRAPG4250-32-75 11:05:0020.6[facility] NbahqyxIZJOXDOYTH0424-26-44 11:05:0068.5[facility] UrveshfDOWCWHABUD4172-86-12 12:19:000.0[facility] ANEMIA FORSN4721-26-53 10:35:35923Mhuqvtiw HermannANEMIA OPYGI6359-71-80 10:35:0044[facility] HermannANEMIA FKLAI2029-63-80 10:35:73570Igzrgzof Noel ANEMIA GNGAH1653-82-37 10:35:0017Mem[facility] HermannANEMIA GAKSX6780-62-85 10:35:00 89[facility] HermannCARDIAC YNVCKQP1520-78-36 10:35:90883Twnyoizy HermannCHEM EGXJK5683-19-07 10:35:002.0[facility] HermannCHEM LSUSR9951-83-43 10:10:001.7 [facility] DjygpkoPGLZNXFVJY1014-80-66 10:10:000.0[facility] HermannCHEM PANEL 2014-02-27 09:30:001.4[facility] UsedeuyPDZZKE8084-99-62 09:30:001.89[facility] UimjiatYDGVWX7992-09-60 09:30:0023[facility] ZjqhrokWSGIPY3529-50-34 09:30:0037 [facility] XoaqdnoPNQMCR2860-41-73 09:30:0070[facility] EpdkmggOKLGIO7971-57-14 09:30:0050[facility] PcmmcinAIADPA8038-52-83 09:30:0010[facility] HermannVIRAL - PIJBNYEO2455-24-91 23:00:46Negative 12(02/26/14 6:00 PM)[facility] HermannVIRAL - LEZWBLHW4565-78-87 23:00:46Negative (02/26/14 6:00 PM)[facility] HermannBACTERIAL - VBBKKDTH5218-39-64 22:25:00Negative (02/26/14 5:25 PM)[facility] HermannCARDIAC JCMHCZD1759-85-60 18:30:000.46[facility] HermannCARDIAC FPXJKFY5774-21-77 18:30:00 74[facility] HermannCARDIAC FLTNSGC4147-80-50 08:15:000.37[facility] HermannCARDIAC OPUVXPK6084-20-72 08:15:17771Xscjuygu HermannCARDIAC CMABJZU9981-45-30 08:15:00 1.6[facility]ann[facility]ARDIAC XMDXZHX4994-27-86 08:15:001.6[facility] HermannCHEM AOPRW7358-78-10 08:15:000.9[facility]annCHEM TUYFC7005-82-57 08:15:009 [facility]annCHEM XSDPK8142-89-83 08:15:003.7[facility]annCHEM PANEL 2014-02-26 08:15:0013[facility]annCHEM VOJBL0366-88-37 08:15:0020[facility]annCHEM PPILB1142-10-07 08:15:0070[facility]annCHEM NJHDM7736-77-33 08:15:000.8[facility]annCHEM WMFJR8486-88-75 08:15:006.9[facility]annCHEM NRUII3826-95-72 08:15:003.2[facility]annCARDIAC QDNZYCB0538-95-57 02:31:29493 [facility] NBIFN8434-69-79 02:10:00None Seen (02/25/14 9:10 PM) [facility] TGZIW5745-63-73 02:10:00None Seen (02/25/14 9:10 PM) [facility] GDXAP2071-03-55 02:10:00Yellow *NA*(02/25/14 9:10 PM) [facility] USDMB1978-43-49 02:10:00Negative (02/25/14 9:10 PM) [facility] YZLPZ8584-78-98 02:10:00Negative (02/25/14 9:10 PM) [facility] GUEEM3924-68-89 02:10:00Negative (02/25/14 9:10 PM) [facility] EKOZZ3324-95-98 02:10:00Negative *NA*(02/25/14 9:10 PM)[facility] GOVQZ4559-55-94 02:10:00Negative *NA*(02/25/14 9:10 PM)[facility] ZQDGE8099-47-96 02:10:00Small *ABN*(02/25/14 9:10 PM)[facility] VGWTF6830-74-30 02:10:000.2[facility] DBRLL0018-19-84 02:10:00Clear (02/25/14 9:10 PM)[facility] GLPQB3704-02-33 02:10:00 Test Item Value Reference Range Interpretation Comments UA Spec Grav (test code = UA Spec 1.015 1 Grav) [facility] ZWLNG6825-37-60 02:10:00 Test Item Value Reference Range Interpretation Comments UA pH (test code = UA pH) 5.5 1 5.0-8.0 [facility] KIOKD3095-29-69 02:10:00Negative (02/25/14 9:10 PM) [facility] XUQQRYQ8998-28-94 00:50:001.9[facility]annC[facility]AC ZGCNOVB6183-20-08 00:50:000.38[facility]annCARDIAC SFBWACJ5128-78-13 00:50:00 100[facility]AC QKIZCAY4899-51-00 00:50:001.9[facility]annCHEM JTWNJ1264-63-83 00:50:007.4[facility]annCHEM FRKTH1230-13-90 00:50:000.6 [facility]annCHE[facility] OEIJV6927-50-43 00:50:0077[facility]annCHEM PANEL 2014-02-26 00:50:0013[facility]annCHEM MHYEB3013-17-96 00:50:0015[facility]annCHEM OLPGQ5785-11-48 00:50:003.2[facility]annCHEM QIIIE6163-72-86 00:50:004.2[facility]annCHEM VEGKB9797-68-34 00:50:000.8[facility]annCHEM DCHMM5622-66-98 00:50:009[facility] BzocjuoFYEORYVLRS2090-56-69 00:50:000.81 [facility] VymnsdsHRIJBWGUHP1992-40-05 00:50:00 Test Item Value Reference Range Interpretation Comments PTT (test code = PTT) 42.2 s 22.9-35.8 [facility] SzpdlonTFKRGTWWIE9871-67-77 00:50:001.36[facility] HermannHEMATOLOGY 2014-02-26 00:50:00 Test Item Value Reference Range Interpretation Comments PT (test code = PT) 16.9 s 12.0-14.7 [facility]annCHE[facility] OCXCV1704-96-90 10:30:0038[facility] HermannCHEM PANEL 2014-01-28 10:30:008.6[facility]annCHEM ZGMGJ1779-05-69 10:30:0013.1[facility]annCHEM OQDJR0796-32-73 10:30:0028[facility]annCHEM NLDZG0524-98-26 10:30:0024[facility]annCHEM YSHIO2526-32-13 10:30:0099[facility]annCHEM TNHBZ3119-41-01 10:30:38256Dbhiysoc HermannCHEM CIHZM0097-96-65 10:30:004.1 [facility]annCHEM JPSCG6886-42-72 10:30:29882Nxkbtsba HermannCHEM PANEL 2014-01-28 10:30:001.7[facility]annCHEM IFKGI0866-38-02 10:30:002.1[facility]annCHEM TOHBK2333-82-98 10:30:002.6[facility] AyvalmxEXKPLAHPGU0264-60-08 10:30:005.0[facility] GscqcenTRGZIXFVRW1796-50-75 10:30:000.4[facility] VGDIEVVTBS4916-64-41 10:30:000.1[facility] TjbnsliIQVRHXIXPJ2173-67-33 10:30:000.5 [facility] RzknrcxJYANTAQWTL4028-07-21 10:30:001.8[facility] HermannHEMATOLOGY 2014-01-28 10:30:0024.7[facility] JaervboXBLWLDNYZK9093-33-84 10:30:0066.4[facility] WmxfimjEYHIOKWHCV0662-40-34 10:30:001.7[facility] HdjcubuELXWHABTIH8852-80-82 10:30:006.8[facility] GiumyetTJWAIBSWTH9130-91-19 10:30:0010.3[facility] RXNDWNGAGW2534-41-21 10:30:0079[facility] OfcecrhRKJDWWAJJI4770-41-86 10:30:0011.3 [facility] CdgxqliTXKJGLHCOB3900-92-10 10:30:007.5[facility]annHEMATOLOGY 2014-01-28 10:30:003.84[facility] QgkvlsjNZJZGKJYVP7277-44-95 10:30:0014.1[facility] KytwhtsXMMWEBNDCJ4446-92-90 10:30:0034.2[facility] RljvqexRKFEFCQWVA8126-70-54 10:30:0089.0[facility] GxlezbiDMLJTLOQCX0683-92-87 10:30:00 Test Item Value Reference Range Interpretation Comments MCH (test code = MCH) 29.3 pg 27.0-31.0 [facility] PxgtjnuBLQMDNGUJW8295-85-85 10:30:0032.9[facility] HermannCHEM PANEL 2014-01-27 19:10:002.0[facility] HermannCHEM NZYOU1627-97-13 19:10:0035[facility] HermannCHEM ZOYUN7955-30-48 19:10:008.3[facility] HermannCHEM XZSKV4465-25-72 19:10:0029[facility]annCHEM XPZBS1188-10-89 19:10:008.3[facility]annCHEM JIAMV0268-34-68 19:10:01099Woaeoglc HermannCHEM IYSQO1830-73-86 19:10:004.3 [facility]annCHEM PXSPF3750-09-97 19:10:32614Libqjxfx HermannCHEM PANEL 2014-01-27 19:10:0026[facility] HermannCHEM TOTSE0066-64-07 19:10:001.8[facility] HermannCHEM HOYZV1382-16-30 19:10:20197Bwkurids HermannCHEM WHSFQ1763-47-01 10:00:001.5[facility] EwfqodaXOAPJVSRAEKI9207-86-07 10:00:0011.4[facility] CHXDJKQRZGDD8489-61-78 10:00:0035[facility] JbzxasiWYAAZBDWKULX8036-14-00 10:00:00 104[facility] HplvljjVVWFZKEBHPSY2822-13-34 10:00:004.4[facility] QXMUQWKETQRM1911-36-65 10:00:93090Nmthxihe ZqtkwvvZDIIQGGZLNZY3862-46-62 10:00:001.8[facility] HkrjqguIGKQHPGPIVUQ9476-75-57 10:00:008.6[facility] FKNIUXWGHSLB4436-03-63 10:00:0028[facility] SgahlfgRXFMSULSGNNV3572-27-36 10:00:00 26[facility] IwfqrkqXCXFDAYWBYYA2455-55-60 10:00:45884Rfsktcpw HermannHEMATOLOGY 2014-01-27 10:00:00 Test Item Value Reference Range Interpretation Comments MCH (test code = MCH) 28.8 pg 27.0-31.0 [facility] HbrcnyjMITDFWIXKH5369-70-99 10:00:0032.0[facility] HermannHEMATOLOGY 2014-01-27 10:00:0014.2[facility] MgmfselPAVWEORUBU5690-20-91 10:00:009.8[facility] FimmxdnVMZKKBRKAO3610-52-72 10:00:0071[facility] DyrdaiaLPAERVYUAK0303-95-05 10:00:004.06[facility] KtgnhgfTAJDQDLQQR3492-20-85 10:00:006.2[facility] ZNSSCXIGAM1162-05-53 10:00:0036.5[facility] RbjjvvcPARYWCHWZK7116-65-78 10:00:00 90.0[facility] IovtntiSKJMAAQSZN2368-86-17 10:00:0011.7[facility] HermannHEMATOLOGY 2014-01-27 10:00:001.6[facility] TrsoffeJUGQGHVLMV5955-96-98 10:00:004.2[facility] HmkhhivADKEHVBKIH7495-77-77 10:00:000.3[facility] AjervndKNZHWDVYUU5770-79-37 10:00:000.1[facility] JzfmozaRXZSOXAQQU2174-43-01 10:00:000.2[facility] ZPOABFLWHO7285-64-06 10:00:000.0[facility] KfusfeqSOITXZXDPJ8323-41-49 10:00:00 26.0[facility] RbjfcfzYEAAELQSGQ4046-72-87 10:00:0068.2[facility] HermannHEMATOLOGY 2014-01-27 10:00:001.5[facility] VfcpiafHRFRUXPOSB1985-85-48 10:00:004.0[facility] ViavwjjQGYSDH0046-84-96 10:00:003.36[facility] WumonnfPEXPOB9408-74-29 10:00:0023 [facility] LyzttptVZQRDB2576-51-84 10:00:0069[facility] RdagepdHZRLNW8322-69-99 10:00:0039[facility] RkgmmaiVUNLYY6151-63-91 10:00:94323Hhouotjw HermannLIPIDS 2014-01-27 10:00:17858Fxkcnyzh VahkrxdDDENBGMAVQ5090-45-72 10:00:001.2[facility] AND KKXPJ2666-28-88 14:15:00<=1.0[facility] AND STOOL 2014-01-26 14:15:00<1[facility] UFCSS0201-77-17 14:15:001.005 [facility] NLXNO1741-06-54 14:15:00Clear (01/26/14 9:15 AM) [facility] SGXAC8614-20-79 14:15:00Colorless *NA*(01/26/14 9:15 AM)[facility] QMXMQ2402-87-73 14:15:007.0[facility] DHLMF1773-20-27 14:15:00Negative (01/26/14 9:15 AM)[facility] GZGLL0083-48-48 14:15:00Negative (01/26/14 9:15 AM)[facility] CTVDS6856-15-18 14:15:00Negative *NA*(01/26/14 9:15 AM)[facility] PXGAN9726-42-91 14:15:00Negative (01/26/14 9:15 AM)[facility]annANEMIA STUDY 2014-01-26 14:00:0010.9[facility]annANEMIA XYUDQ3339-34-83 14:00:89793 [facility]annCARDIAC KYYDGIC1838-99-39 14:00:05856Kbpjbxdd HermannCARDIAC EPEHMMM8788-15-57 14:00:000.28[facility]annCARDIAC ATYRUZC1361-80-21 14:00:00 88[facility]annCARDIAC DHUOBXF7262-43-16 14:00:003.0[facility]annCARDIAC QMRTLUR6826-63-52 14:00:002.6[facility] HermannCHEM UOLRI9087-54-17 14:00:002.6 [facility]annCHEM WRIID1970-58-20 14:00:000.5[facility]annCHEM PANEL 2014-01-26 14:00:000.9[facility]annCHEM TSOUE6305-57-86 14:00:004.1[facility]annCHEM YWYAJ7062-42-25 14:00:000.7[facility]annCHEM XOXZD8094-92-27 14:00:000.2[facility]annCHEM YQXGL1738-49-42 14:00:0015[facility]annCHEM JFPGO8515-24-52 14:00:0078[facility]annCHEM LZGVX9926-25-66 14:00:007.6 [facility]annCHE[facility] CZLIX0009-17-18 14:00:003.5[facility]annCHEM PANEL 2014-01-26 14:00:0017[facility] ZfhglygGKDQRWOBSM1897-98-48 14:00:0084[facility] OhumjgcRTVIUAPXRE5346-78-21 14:00:009.8[facility] SuokykbBZGPRFWJUA5388-70-28 14:00:006.6[facility] MhhwiteJYLTQUVRFK6305-11-53 14:00:00 Test Item Value Reference Range Interpretation Comments MCH (test code = MCH) 29.2 pg 27.0-31.0 [facility] LsuupqxDMMSEMHZHX2294-79-10 14:00:0032.7[facility]annHEMATOLOGY 2014-01-26 14:00:0014.3[facility] FmujgkyKKUKVHXZKI6842-64-08 14:00:0089.2[facility] CrvyikaVOVSBIXFBR8123-97-42 14:00:0013.2[facility] TwlnnusSFUXUWEZZP8083-84-41 14:00:0040.4[facility] WjlztsjSDBCFUOCNL0588-81-72 14:00:004.53[facility] IAYKFSIXOR5767-69-52 14:00:001.23[facility] WyctvswFQOPCPCKVB1724-51-34 14:00:00 Test Item Value Reference Range Interpretation Comments PT (test code = PT) 15.6 s 12.0-14.7 [facility] KlxmrukCMESPNZUWB7433-76-75 14:00:001.6[facility]annHEMATOLOGY 2014-01-26 14:00:004.6[facility] HniaseyPYEQCOWSJG8603-56-81 14:00:004.4[facility] NjnfmciFKNIXKKNIN3279-65-14 14:00:000.7[facility] HbqwimjYVIALKATXA0849-33-96 14:00:000.1[facility] UpzerreMDQPZXMDMC6508-58-03 14:00:001.8[facility] JRAPLGHYFO8649-92-44 14:00:000.3[facility] VnejkqtZSBZWCRJFD1514-26-86 14:00:00 27.2[facility] IuwkralZSAFNCCGWN9779-73-77 14:00:0065.9[facility] HermannTHYROID VSUBP8035-04-79 14:00:002.320[facility] NsjxdjkGVEHGVTUR9566-16-90 10:30:05324 [facility] ZoplhyqYJVYUXHMM3209-81-05 10:30:0084[facility]annCHEMISTRY 2012-02-27 10:30:003.8[facility] ZvmqabkFVIYXZKUP3414-78-47 10:30:18564Zqlnblpl LrfuwhzVXCKJJICU9999-20-46 10:30:77594Qtqvywpw YbrfjlgRVLOLRSID5435-77-16 10:30:001.0[facility] VjlggikQBCMVKARZ6938-14-24 10:30:0017[facility] AQIPLKRIR5986-78-24 10:30:0084[facility] ZxqktkcMPPNIUORJ1731-41-22 10:30:007.9 [facility] CqwhykeYYDRVNXDA4591-77-14 10:30:0028[facility]annCHEMISTRY 2012-02-27 10:30:0015.8[facility] EenoobuVGYPBWJFVM1944-98-80 10:30:008.3[facility] LyllucqQZIAKNETUM5390-90-74 10:30:003.1[facility] OsjmendFFPBPQSGAY0420-70-98 10:30:0044.7[facility] PadktbsLJDFIURLAD1816-10-87 10:30:0043.6[facility] QBKFDPWNOY6234-32-51 10:30:00Normal (02/27/2012 05:30:00)[facility] DWDOHXQMQR1632-68-40 10:30:000.0[facility] SwuepqiTDGBHRBIXL4149-45-49 10:30:000.1 [facility] UdlzdzyKYHYGKUIPG3889-26-12 10:30:002.0[facility]annHEMATOLOGY 2012-02-27 10:30:000.4[facility] UfzpsqaNGZLNRSPHU7989-15-90 10:30:000.3[facility] GvoptzmCCYLSUIUEZ9262-94-15 10:30:002.0[facility] VrflljgNNJWFDGXUL4987-49-87 10:30:00Slight *ABN*(02/27/2012 05:30:00)[facility] OcxasqiUZTMKUWLNF7034-73-21 10:30:009.9[facility] SlsfgjxEQVYCSJFJR4929-05-30 10:30:00 Test Item Value Reference Range Interpretation Comments MCH (test code = MCH) 31.3 pg 27.0-31.0 H [facility] ZoepdhfBISZZPEKQV4673-76-37 10:30:0033.7[facility]annHEMATOLOGY 2012-02-27 10:30:0014.8[facility] YghdqplPHFIQQZTGC0945-14-50 10:30:0034[facility] BeqomzjOSCEGEBCNN7227-79-63 10:30:0092.9[facility] DerqoaaVGIFFIWTPX5751-11-36 10:30:004.6[facility] CizftimUFWJHMVKVN0935-62-27 10:30:003.40[facility] MRRWSIYRAB4389-87-85 10:30:0010.6[facility] WqwqoxaIXEQBCKLBB7485-88-15 10:30:00 31.6[facility] RmqkhzgUBRFHDAAX8135-68-49 21:40:65109Vxyxpypi HermannCHEMISTRY 2012-02-26 21:40:003.9[facility] XmzixikSAJHGFKMW6663-28-36 21:40:0011.9[facility] MbkunjmTUXDDMYDI7384-08-60 21:40:007.7[facility] JwihkscZLIDJYGID1807-85-41 21:40:27317Ezsefjsg YqccfrsNYDARDXVU4634-73-40 21:40:0068[facility] BVBYQUCBP4256-68-78 21:40:0026[facility] TzgeifkXTKZIQWJT2047-93-88 21:40:001.2 [facility] DzstrgpJRIZHTDSB2524-56-64 21:40:34363Ohtexadp HermannCHEMISTRY 2012-02-26 21:40:0099[facility] KiadshgYBPJPPIEP3151-33-79 21:40:0031[facility] HmxvmopBLHFERGIQ8666-37-28 13:56:63266Wrxpgkkd AxibgqaVCHDSZLME2966-53-57 13:56:000.11[facility] HnnwxetUAFUBSOOO2556-45-12 13:56:001.5[facility] JHPQQLPXZ2337-35-11 13:56:001.0[facility] TheakdvRVLLIJCNY0844-99-56 10:00:001.3 [facility] UqrdrezPBLPRSULB1108-87-82 10:00:003.2[facility] HermannCHEMISTRY 2012-02-26 10:00:000.8[facility] HlnqnxkIRHOWLWQK1871-39-33 10:00:0012.5[facility] PbbhwrqVBKYZUEMI9629-84-63 10:00:0022[facility] NlrqtlzXWRCRCVYJ2494-66-00 10:00:005.8[facility] CsruautVWEDNUHIB0543-34-90 10:00:0020[facility] KNJONMCHO9128-59-89 10:00:007.8[facility] RdfzlwmXKCDKAVKA4969-53-77 10:00:000.6 [facility] ZidiezbJOFDWAMRH6151-32-96 10:00:0030[facility]annCHEMISTRY 2012-02-26 10:00:0048[facility] QckthjyLLTRGTVCW9220-94-37 10:00:0036[facility] CjvrtgoUXHHQRKPM6117-69-47 10:00:0091[facility] OsftznlWPODHYXUX0379-41-96 10:00:002.6[facility] BdgniplKDMWUHYPF3816-80-80 10:00:0033[facility] OWPIYFXQE7114-56-56 10:00:0015[facility] BujvtsfXNTMOXOGN2911-37-12 10:00:003.5 [facility] GzvmedbJGMOSKDEZ1435-84-21 10:00:0099[facility]annCHEMISTRY 2012-02-26 10:00:001.6[facility] CwwtwhfSAHPABTBJ6277-88-26 10:00:87702Plfpusnk HbfxengMCYARRNAL5794-65-49 10:00:005.6[facility] KnpehpsBNNWBNMLF7302-85-46 10:00:0041[facility] DceupiqKLQDSVRTB1404-51-03 10:00:0039[facility] DOOYBGHRP5781-04-52 10:00:0092[facility] JckkhanSNMACNTVJ7505-10-46 10:00:0098 [facility] PytpfakPWAPCAVXB8290-04-00 10:00:002.51[facility] HermannCHEMISTRY 2012-02-26 10:00:13862Juslqptv IripqtuDDNYIDJJB3470-16-51 10:00:000.10[facility] HrdhcfaRORBGXADA8565-91-50 10:00:001.7[facility] UxtfqyxSRARORAQN7221-09-79 06:15:000.4[facility] FzfvxksUALNTKFTK4271-84-38 06:15:29901Enjqhftp Rowdy MXZULSYBU0564-52-92 06:15:0013[facility] FzwgttdFGTPBERWZ9585-50-36 06:15:0042 [facility] KdgbsdaNGWBOSJPT7985-59-64 06:15:001.95[facility]annCHEMISTRY 2012-02-26 06:15:0082[facility] PdtxykrODTKYSVZK4474-62-10 06:15:96496Mppvphlo DxurisoMTATGROAI0350-49-00 06:15:000.09[facility] TpnayyzCTLBBEQWB6914-16-14 06:15:001.1[facility] HermannBEDSIDE GLUCOSE ZLQKDMH0983-58-03 16:28:55990Hmxjfrwx HermannBEDSIDE GLUCOSE HTCHATR7487-49-12 11:12:47785Npmwqiph HermannBEDSIDE GLUCOSE GXYNMZB3154-78-09 02:31:47084Pmnkksoi ChzwjgsFVYOFTDAU0326-04-67 07:08:0014.5[facility] TuenvcgKNWOJOKME5793-48-60 07:08:59035Wqwuqvrx Noel NFIOEJEYW7215-41-37 07:08:001.3[facility] KzelahtBQESAORVE4392-39-11 07:08:0025 [facility] WoujkokTOPTZCFVQ0266-30-46 07:08:26840Bydhstti HermannCHEMISTRY 2011-12-07 07:08:008.7[facility] QtplkmeHIRJPVRHA7809-50-29 07:08:0031[facility] RhpanyyRZTWUKHMN9921-77-08 07:08:004.5[facility] DzekjqtJBNEMRFTO1704-94-39 07:08:13344Jmyuyxyu NghuybtXEBOVQCVQX5843-22-66 07:08:0013.2[facility] QPRIFRWYKL6586-88-25 07:08:0031.9[facility] WhdpmykFNZMENIDTV7374-42-58 07:08:00 3.40[facility] IieyaguHDVDGLIUCZ8598-47-32 07:08:0010.6[facility] HermannHEMATOLOGY 2011-12-07 07:08:0093.7[facility] QczzhnyEOQRFQMUGV6547-76-02 07:08:00 Test Item Value Reference Range Interpretation Comments MCH (test code = MCH) 31.1 pg 27.0-31.0 H [facility] CnebarnXSJHEGNDKZ4671-96-70 07:08:85268Qamujmac HermannHEMATOLOGY 2011-12-07 07:08:0033.2[facility] LwwmyjcERPXHRUEXY1993-45-72 07:08:0017.0[facility] SyzqcmgXTNXPHEPJD4662-87-46 07:08:009.4[facility] LliueivYDZRXGHORT0992-36-71 07:08:000.8[facility] RjgvejoSKVAIUQRBE2952-36-96 07:08:000.0[facility] LMAFQBINWW4904-14-04 07:08:000.8[facility] BzohctqYIUNGJJYZL9816-23-70 07:08:000.0 [facility] GysmqajIHEJINURRI1573-35-19 07:08:0088.5[facility]annHEMATOLOGY 2011-12-07 07:08:005.7[facility] OktfeweSOUPKVXTLD7413-08-94 07:08:005.8[facility] PxwkxxvSJYMVYXDGW0097-95-42 07:08:000.0[facility] PycqkveZNSCYIRJIH6549-31-33 07:08:000.0[facility] XxadlbjUUHCFVZDRE4967-32-62 07:08:0011.7[facility] BIZRLIFNR1360-93-96 05:10:0014.0[facility] MfxinhzYWCDXEEYJ6616-20-79 05:10:004.0 [facility] CaeeashFEKKCVNGX6928-64-94 05:10:32592Ntyhgwyn HermannCHEMISTRY 2011-12-06 05:10:0028[facility] UyiajibWMEUEOIJH0096-13-44 05:10:34841Ourkkfoe VllsrbxOFVBNQQHU9738-61-70 05:10:008.1[facility] YobzufvXVXJIHLFC2900-99-71 05:10:76074Yljxojvy CpmbisyUUHLTPERE7324-58-39 05:10:0028[facility] STLSPDECL6991-00-87 05:10:001.3[facility] UcispfvJDTRUOPKE5972-49-38 05:10:002.1 [facility] GdgmjjsFJXUNBDQY8319-72-45 05:10:003.4[facility] HermannCHEMISTRY 2011-12-06 05:10:004.68[facility] IgxqyjdRVYGITDLC1860-14-65 05:10:004.76[facility] KmukpquKPRGBPBDU2425-35-24 05:10:001.17[facility] ZeduvhoCZCWLOTOB6712-40-31 05:10:001.19[facility] ZhkihngICYSAHTYOU8739-98-39 05:10:009.4[facility] GGVQCSUIJT7172-19-74 05:10:0030.9[facility] DgubolfWIBVROXYVF5511-03-70 05:10:00 10.4[facility] ZcmltqrGCQFOEVXJW4705-76-89 05:10:0093.8[facility] HermannHEMATOLOGY 2011-12-06 05:10:00 Test Item Value Reference Range Interpretation Comments MCH (test code = MCH) 31.5 pg 27.0-31.0 H [facility] ZfkvkpbYKAPGSJJGO4349-90-97 05:10:51627Bnimvqzi HermannHEMATOLOGY 2011-12-06 05:10:0033.5[facility] FmfqzfnEUTWVIKTBM8124-74-23 05:10:0016.1[facility] GuhkguuVVMHFQKHGT3161-86-31 05:10:0011.9[facility] AltrzwpCDHFTKQWAZ4616-53-37 05:10:003.30[facility] QkkykqzNMISIKYDST6764-40-48 05:10:005.5[facility] JZMARHSUXT8418-45-91 05:10:005.8[facility] YrlmrvpERQWYOASMZ7931-43-27 05:10:00 88.6[facility] HryhmrvWYRNEUTQIK9836-20-87 05:10:000.0[facility] HermannHEMATOLOGY 2011-12-06 05:10:000.0[facility] StqfhbySBHRMUSHLN5546-93-80 05:10:000.7[facility] VgumdicEEKLGQWYZY6825-91-28 05:10:000.1[facility] UyhaaftJAVIEEUFGI2497-73-64 05:10:0010.5[facility] EaupvjxCCVUZESNGU0745-32-29 05:10:000.0[facility] DRAGMEVWIJ1970-58-64 05:10:000.7[facility] NszmqqpMPCVPAMFUF9100-52-28 02:02:14260 [facility] BjbxvxhUDIOVXBFQO6870-09-30 14:11:00 Test Item Value Reference Range Interpretation Comments PTT (test code = PTT) 24.0 s 22.9-35.8 N [facility] FpswgsaQXQRNSXLOM5599-35-36 14:11:00 Test Item Value Reference Range Interpretation Comments PT (test code = PT) 15.0 s 12.0-14.7 H [facility] DzknomjCHJCLVYPPJ1006-52-48 14:11:001.18[facility] HermannBACTERIAL - TPZIRSBI8776-25-05 06:58:00Negative 1(12/05/2011 01:58:00)[facility] XOHTFNREO5517-15-32 06:58:005.04[facility] NquteblGMETKXOIT4774-04-44 06:58:005.00 [facility] OwndswbIIVNVJEGO5265-68-88 06:58:001.26[facility] HermannCHEMISTRY 2011-12-05 06:58:001.25[facility] FdnjqzfPELQSQSSU8751-97-91 06:58:004.0[facility] ItbskwnOXIFDNTUQ3162-84-47 06:58:001.9[facility] MutjiirYDWBOQKZG1720-01-28 06:58:009.0[facility] ZxrucbhRLNTRVQUQ6008-69-44 06:58:0027[facility] QQFMCHJSQ3086-77-83 06:58:44220Ukrmeade MuxcefgRSQQEEBYA5940-76-08 06:58:00274 [facility] WmuibguTWXCCAOQR8400-83-77 06:58:94726Wupvvpuv HermannCHEMISTRY 2011-12-05 06:58:001.4[facility] ZbxbjxwWXYTYSTMN1723-21-45 06:58:004.1[facility] UbsxbgiFHFZQASXF2477-65-73 06:58:0024[facility] XrinbejEKQEOISJC1774-54-03 06:58:0017.1[facility] SjzodigQQIGFXFSGZ1718-58-20 06:58:000.0[facility] AZWHMEWZND9218-31-21 06:58:000.0[facility] OmpodlsLAGKJRALVI8358-92-42 06:58:000.3 [facility] EjypzuoREBFIYSHLN0773-98-86 06:58:003.1[facility] HermannHEMATOLOGY 2011-12-05 06:58:000.7[facility] TssusorSHKZZRBTME5577-78-36 06:58:009.3[facility] AsccwooULPCWOEJXJ7977-07-77 06:58:000.2[facility] DfvmftzOESOWHABCO2458-84-48 06:58:000.0[facility] YefhymbMBGZKGDRGP4242-22-22 06:58:006.5[facility] JHZCZUJHME9115-33-37 06:58:0090.2[facility] XhffcskUHITIODHVC0814-78-05 06:58:00 1.15[facility] CclaomyCKURZPGPOB1683-68-51 06:58:00 Test Item Value Reference Range Interpretation Comments PT (test code = PT) 14.7 s 12.0-14.7 N [facility] NcpidknYDLZYPFOQE8575-85-75 06:58:00 Test Item Value Reference Range Interpretation Comments PTT (test code = PTT) 24.4 s 22.9-35.8 N [facility] TlpciijGWFMAKEMVD0955-49-75 06:58:0016.1[facility]annHEMATOLOGY 2011-12-05 06:58:0032.8[facility] TycreeaPOVGWCTGYB0095-78-42 06:58:0010.3[facility] WjgmtgpUPWHHTASOA9141-57-92 06:58:0094.1[facility] PvkgefxLYHLIBFTLY6153-23-15 06:58:0031.7[facility] ZihfimoGAQIVLHZNG8540-85-70 06:58:00 Test Item Value Reference Range Interpretation Comments MCH (test code = MCH) 30.9 pg 27.0-31.0 N [facility] XistexlYGRRUQMQXP4191-06-12 06:58:007.9[facility] HermannHEMATOLOGY 2011-12-05 06:58:0010.4[facility] TvqzptlOJNDKLWULY2959-54-38 06:58:003.37[facility] OyiugfgYOOVXJYHA0041-98-54 03:58:67605Afdruujg VldzsmrRZORSWZFW3540-86-62 03:58:36077Umaixzkq PpgarnaRVVNAMWBK7656-01-63 03:58:003.5[facility] YBEPDUYWZ8457-86-36 03:58:0033.0[facility] FhlkypkHXQFHKUJK3567-83-84 03:58:00 100.0[facility] OjznnqyTWGVONXGB2327-36-75 03:58:001.6[facility] HermannCHEMISTRY 2011-12-05 03:58:001.17[facility] CkrujghXZOSTEAJZ3462-26-83 03:58:004[facility] IemtmncYOXLPUHWX5641-57-44 03:58:0029[facility] CrlmhgyZJXTMIQCT0495-38-12 03:58:0046[facility] CrltarxSKGFXXNOY6398-85-59 03:58:68645Dyheswoz Row[facility] MAXIXJXUS4211-21-06 03:58:0037.0[facility] TyrwxuuMBRJDJADX0627-60-77 03:58:007.41 [facility] XxybzsgGHGBTNMWK8743-47-09 02:54:00884Qgldnhfo HermannCHEMISTRY 2011-12-05 02:54:001.2[facility] OzqfzsxWYZXNOIIR3080-94-26 02:54:001.21[facility] WzsadcfTGTJPREBH0025-00-24 02:54:004[facility] OfvuplxGRNDZSAWK8724-04-15 02:54:00 29[facility] LgoieiuJVIGVAMBO2240-02-01 02:54:97340Mldxzgvw HermannCHEMISTRY 2011-12-05 02:54:0041[facility] RgosxbkGKXOQFAKV0156-06-89 02:54:0037.0[facility] FpuciniTKENMGZBG9431-11-14 02:54:003.5[facility] RaioiboWIUKLFIIU6101-64-28 02:54:007.45[facility] JcalubbSCENKVYFI2786-41-57 02:54:02932.0[facility] SQNWSDQGZ9298-32-07 02:54:0029.0[facility] GnpzulwPJAJIVJOY4423-27-99 02:54:01283 [facility] XztclagZXUEUZPTI1753-27-85 02:03:0031.0[facility] HermannCHEMISTRY 2011-12-05 02:03:80854Gvjeynlx VoasxrfKVCHFDYLO4311-63-74 02:03:003.4[facility] CvobpheKAOUTMYJJ3441-49-89 02:03:75240Ptldjzlf RbqfjpcJWOPKKRAP1462-85-69 02:03:001.3[facility] BbmckgaKESUYCBHH6581-69-03 02:03:009[facility] YEONKLPXS6192-27-66 02:03:79535.0[facility] DbarhdjBXRNJVNBI6674-36-56 02:03:00 1.22[facility] BxctpdqHPRWUKDSM6128-37-47 02:03:0037.0[facility] HermannCHEMISTRY 2011-12-05 02:03:0034[facility] AmhhhpsJWHDMVZBR6345-72-26 02:03:007.46[facility] WabtuhqUISGSBQUG4447-51-89 02:03:0048[facility] EqaxfjkBOMTIWKXX0342-45-70 02:03:11030Jvoirbre DwsbvtxBMWSCBISHV9555-25-43 21:00:00 Test Item Value Reference Range Interpretation Comments PTT (test code = PTT) 23.5 s 22.9-35.8 N [facility] GvcmqqpYXAXNSYQKM7104-02-28 21:00:00 Test Item Value Reference Range Interpretation Comments PT (test code = PT) 14.0 s 12.0-14.7 N [facility] GgtwuxwXOSCQZDJUK2689-08-47 21:00:001.08[facility]annHEMATOLOGY 2011-12-04 21:00:00Slight (12/04/2011 16:00:00)[facility] HermannHEMATOLOGY 2011-12-04 21:00:00Slight (12/04/2011 16:00:00)[facility]annHEMATOLOGY 2011-12-04 21:00:00Slight *ABN*(12/04/2011 16:00:00)[facility]-12-04 21:00:00Slight *ABN*(12/04/2011 16:00:00)[facility] 21:00:00Normal (12/04/2011 16:00:00)[facility] IAGAOQF7026-31-99 05:15:00Negative (12/04/2011 00:15:00)[facility] YBBJKXU7550-95-39 22:56:00Product available (12/03/2011 17:56:00)[facility] AjozhdvDUEIUKLUH7146-00-09 22:42:002.7[facility] EbktxyrBISOYNQDS4938-59-93 22:42:001.7[facility] HermannBEDSIDE GLUCOSE VXFXSVF9477-72-77 16:24:50400Nymaikuq HermannBEDSIDE GLUCOSE SJUQZRN5904-81-45 12:31:61138Ohewhwvh HermannCHEMISTRY 2011-08-28 09:26:001.8[facility] OuokcusXEEMQBMSG1687-70-24 09:26:0012[facility] HjovpaqBAVXWXGFR9243-75-89 09:26:0036[facility] GdwfwemLLGRLZPLL6984-10-10 09:26:000.7[facility] XqvymurBQQMYDFKL5820-56-84 09:26:009[facility] INXEVTYSD8033-34-35 09:26:59311Dbbaqilg MamybghAOJBWIOMG8265-95-15 09:26:003.9 [facility] LrwsnlvWEDVOKRQO5584-06-44 09:26:0012[facility] HermannCHEMISTRY 2011-08-28 09:26:001.3[facility] PwnjaysENWBPGOBQ8821-53-71 09:26:0096[facility] DkfcuerYUBIQMWCQ6532-28-44 09:26:008.1[facility] QfiiukpEYAKYVRPN3996-32-91 09:26:003.1[facility] HxtbuhdZPLNTYDVX7632-00-76 09:26:006.9[facility] RNLIIUKXU9469-52-44 09:26:84480Nnozedib LeeynroOWHYYOPIH7515-07-60 09:26:0028 [facility] PqmmlrrXEFSVGZTN4019-70-76 09:26:0013.9[facility]annCHEMISTRY 2011-08-28 09:26:009[facility] JyelvwiIXFGIZSFK2794-85-56 09:26:003.8[facility] AobmvjhPBXIOHWCJ2453-46-35 09:26:000.8[facility] ZwfprsiJXONQRPMXA6291-44-44 09:26:00 Test Item Value Reference Range Interpretation Comments MCH (test code = MCH) 30.9 pg 27.0-31.0 N [facility] OnliwotFYAGDXDFRT3548-67-55 09:26:0034.1[facility]annHEMATOLOGY 2011-08-28 09:26:0034.5[facility] DbjcjpiUWNLGDAWBW5391-59-17 09:26:0011.8[facility] EkvvwvcLCSGQVAAJF0837-31-21 09:26:006.0[facility] KizshuoHVXGAKRLZE7353-43-82 09:26:003.81[facility] AphtdjzTNOXLRVGZI7535-78-25 09:26:009.0[facility] FDYXGJUVNI1998-45-07 09:26:0090.8[facility] HideaqaBXZSGZPAZQ0209-68-88 09:26:00 13.9[facility] RhmflhxROVZXVSEJN7654-44-22 09:26:0060[facility]annHEMATOLOGY 2011-08-28 09:26:00 Test Item Value Reference Range Interpretation Comments PTT (test code = PTT) 31.9 s 22.9-35.8 N [facility] GjxkojlEZAZCDBEMM7618-75-78 09:26:001.78[facility]annHEMATOLOGY 2011-08-28 09:26:00 Test Item Value Reference Range Interpretation Comments PT (test code = PT) 20.6 s 12.0-14.7 H [facility] HjdcxrhCBDAFTLVXV6228-44-93 09:26:001+ *ABN*(08/28/2011 04:26:00) [facility] EkokhetTSPVSPTEAD0257-14-77 09:26:00Slight *ABN*(08/28/2011 04:26:00) [facility] FsiudrcPRMBKMJRGL6648-01-25 09:26:000.0[facility]annHEMATOLOGY 2011-08-28 09:26:000.2[facility] EdimublGFUCMOWXLP2460-87-14 09:26:002.1[facility] UvdmlhnPHNRJXYGZL9706-41-54 09:26:000.5[facility] ZgxgmtjXPVYUFWQNL2539-34-91 09:26:003.2[facility] HaedkngNVXJEMFHOC1176-74-98 09:26:000.4[facility] EXCCKCWUBY5690-27-84 09:26:003.9[facility] TfpubtvDNRRAWQZWV6499-66-63 09:26:007.6 [facility] PiutlzwULLVEDCPGT0433-25-84 09:26:0034.4[facility]annHEMATOLOGY 2011-08-28 09:26:0053.7[facility] HermannBEDSIDE GLUCOSE XDJMRSQ2210-13-17 00:48:94590Kvungkoo UznadauLDZWWHFIYD0783-02-11 19:57:0033.9[facility] KRBRONGFDI6304-71-64 19:57:0011.5[facility] MqmznmzLLIEVTEBN9413-93-98 09:20:003.1 [facility] DkqlzpbXYKQLJUZA2784-33-93 09:20:0014[facility]annCHEMISTRY 2011-08-27 09:20:000.7[facility] NltxsucFCKTHFPKH1582-63-08 09:20:008.2[facility] TxxkencRPZDOSFZS9233-66-74 09:20:0012.7[facility] HcvfmhpSZCZBUSKT2600-28-79 09:20:0029[facility] GlbsccmVGXORORUX1201-40-08 09:20:006.9[facility] RSQHMSCKF7499-62-74 09:20:0011[facility] WpkatyuEDOUJJBKA0685-06-78 09:20:003.1 [facility] RfaknivXLQFBTWGH6434-97-01 09:20:0037[facility]annCHEMISTRY 2011-08-27 09:20:0013[facility] PfvlzzsEZAZFGOFS2684-32-70 09:20:000.8[facility] RybhukiYYQHBOIEL6333-70-78 09:20:003.8[facility] RyjdlibUMZXVLGTF0567-71-63 09:20:0098[facility] BhqrfldTMEDTUIOF4213-88-25 09:20:0017[facility] ELMCCZHLX8130-24-35 09:20:001.6[facility] NsipuryXTTNQIEPN3704-64-62 09:20:46930 [facility] JwtrzgmAKPIBFZDU2358-97-86 09:20:003.7[facility] HermannCHEMISTRY 2011-08-27 09:20:58545Bwfjgohv HemjftaHYQOCWAXW9561-17-47 09:20:001.8[facility] JnvxsieBTYIZSMKE6363-91-11 09:20:003.93[facility] BcilyxtVGJETPOST1999-00-99 09:20:0052[facility] NlpexsoDTWCDYDOL3099-43-03 09:20:57035Ftiyghnb Rowdy CNJZEHQNW9719-29-35 09:20:0028[facility] EuhqycqKDNRXFCPA9654-12-48 09:20:17496 [facility] OaqhwrnTYTRCLNUMK7289-87-42 09:20:00 Test Item Value Reference Range Interpretation Comments PTT (test code = PTT) 32.0 s 22.9-35.8 N [facility] SrjnjkvEEOJACWGCR5820-07-75 09:20:00 Test Item Value Reference Range Interpretation Comments PT (test code = PT) 20.7 s 12.0-14.7 H [facility] TiipgqhXCZLDBWIWZ4599-10-79 09:20:001.79[facility]annHEMATOLOGY 2011-08-27 09:20:0013.7[facility] QnphhntJXRCYPQUSY0403-69-62 09:20:0055[facility] IulhrjtMVWMZRWSND0187-11-89 09:20:009.1[facility] IibzyunFYDNDAICMS2252-52-38 09:20:0034.1[facility] PubeoscKATQGGHQDO6812-32-06 09:20:0034.7[facility] BEKKIPFSEO2484-92-29 09:20:0091.3[facility] CrnhqhaMIYATKVOMI3952-61-44 09:20:00 11.8[facility] XrnnmdvQNNPQLZVYM6847-12-95 09:20:00 Test Item Value Reference Range Interpretation Comments MCH (test code = MCH) 31.1 pg 27.0-31.0 H [facility] SdwzdwmFZBVCWEVBF5615-32-56 09:20:006.4[facility]annHEMATOLOGY 2011-08-27 09:20:003.80[facility] SbhdwwuBFTDMFXVJY2413-61-49 09:20:002.8[facility] ObufbdfSCLZFBTQFV5930-93-05 09:20:000.2[facility] ZvuwfmvRUVYTOOQMG0286-50-31 09:20:000.0[facility] UoylkveVQQLLYDDER9283-20-06 09:20:000.5[facility] YCTHJORWMB8320-75-38 09:20:003.3[facility] RhfrlpfTLQALLTXRK6904-29-65 09:20:000.3 [facility] YuwtptiSLAIYUNVHK8886-95-24 09:20:002.9[facility]annHEMATOLOGY 2011-08-27 09:20:007.1[facility] EhiowcyFCKBCBMCBP7536-32-73 09:20:0045.8[facility] VbkdxxhRVMJIZRCXH6106-27-91 09:20:0043.5[facility] UsimzthCULSBGKMW3398-34-45 01:25:002.5[facility] QeconpfCZFUZCMVW4489-50-02 01:25:001.7[facility] NZEITVXZW8033-56-32 01:25:0011[facility] SozlhyhNSTZZAKNZ6973-90-31 01:25:000.6 [facility] OwrhzplLHPCXFYOV3082-80-38 01:25:0038[facility]annCHEMISTRY 2011-08-27 01:25:0014[facility] DtosnghLMYTRLQKT7756-60-38 01:25:003.4[facility] VdbpfviJDTTRGGXD6341-07-50 01:25:56270Pqeebnih OnjbrchDDSGGGKWC6678-95-46 01:25:001.7[facility] MyfysujMDHAEPCJW2097-48-46 01:25:41941Lxjgfmte Noel RBUYVMVKT4762-80-03 01:25:0020[facility] GpmbfmrXYCCWAYPJ3046-12-47 01:25:003.5 [facility] YmkbldrYULMXVZKP9568-32-10 01:25:83192Svnpfzio HermannCHEMISTRY 2011-08-27 01:25:007.6[facility] UkmnrbgTTAHBNUOT4322-79-20 01:25:008.7[facility] MmivgctINCBPZLGT9677-89-41 01:25:0028[facility] GshhnpgQIJSZHTXZ7860-90-44 01:25:000.8[facility] RjfszznFWBYTFEVU1913-30-18 01:25:004.2[facility] UIRWZKKJO9372-85-45 01:25:0012[facility] TdlvayjYMWSZLGMG0007-52-39 01:25:0012.5 [facility] ZytflagJKBJGQMPOY1308-19-56 01:25:001.82[facility]annHEMATOLOGY 2011-08-27 01:25:00 Test Item Value Reference Range Interpretation Comments PT (test code = PT) 20.9 s 12.0-14.7 H [facility] UogfzwjIFNYVDWFVO5701-33-61 01:25:00 Test Item Value Reference Range Interpretation Comments PTT (test code = PTT) 32.2 s 22.9-35.8 N [facility] OmklewnBGXLVBBZQY4969-40-86 01:25:007.3[facility]annHEMATOLOGY 2011-08-27 01:25:0059[facility] YfmzjyhDVEVABKHMJ1733-56-16 01:25:0014.1[facility] SrihadgUAWCWWHCYN0062-09-89 01:25:0033.8[facility] MkroxyfIJATKHSZRR3029-36-17 01:25:009.3[facility] TapiyljAOXLKTCOMY7945-08-69 01:25:003.95[facility] AAKPPSFKMH6641-21-37 01:25:00 Test Item Value Reference Range Interpretation Comments MCH (test code = MCH) 31.1 pg 27.0-31.0 H [facility] CjtmbdfLRLIFBAHTE4729-02-78 01:25:0091.8[facility] HermannHEMATOLOGY 2011-08-27 01:25:004.2[facility] VclcdesBVWNQAIBFX2312-86-31 01:25:000.1[facility] SrllbtfSQSUSPUEWV1565-21-73 01:25:002.5[facility] ZnongvdEHVGEULXGJ4402-39-78 01:25:000.4[facility] SdocktaVCMOCLUSUN6392-96-86 01:25:00Slight *ABN*(08/26/2011 20:25:00)[facility] DzlubzwRDLHYUKHCX9309-61-57 01:25:000.0[facility] IDRXNSJPMY0608-32-34 01:25:004.9[facility] AfmcwapRSVUSBBDBW1126-98-42 01:25:000.5 [facility] AjacqbaLCLWDNFKTL8941-64-62 01:25:002.0[facility] HermannHEMATOLOGY 2011-08-27 01:25:0034.5[facility] IlahhppHLLGPEYBSI0740-80-65 01:25:0058.1[facility] OavagdoCYWSGVHIKI7133-20-52 01:25:00Normal (08/26/2011 20:25:00)[facility] BEDSIDE GLUCOSE IJTDZQX3328-40-18 13:41:02725Sqhacljm MmbalrnSIRBMTSUM9006-09-17 13:00:006.2[facility] LhcrtytIUOGCHWHU8571-37-57 13:00:0016.6[facility] RCGMUSOAQ6042-75-94 13:00:009.0[facility] MwyzoasFXJWLLEKC0277-17-76 13:00:001.0 [facility] ZpprmsiXVVCYDKLI2772-67-25 13:00:0021[facility]annCHEMISTRY 2011-07-07 13:00:004.6[facility] FnauipgSZAIYJDGC9570-97-32 13:00:32015Dirpqmmq SceujasJMOVZKJGP6510-47-80 13:00:17586Rxkkvirs YyrwsxqXGQFUCVBQ3912-77-20 13:00:30664Pbfbwmtg ZzozyucUDWBZONQV6353-10-50 13:00:0027[facility] PWHIBJICGC3575-94-56 13:00:009.4[facility] OxvtsghDNYPYDUUIT0274-51-06 13:00:0049 [facility] UhuwusdDWWRDJOZRO0847-43-23 13:00:0033.1[facility] HermannHEMATOLOGY 2011-07-07 13:00:0014.4[facility] MwrbddnLBTOISUPDG1666-62-92 13:00:0039.9[facility] JdfchkeMGTHOYRORP2313-64-40 13:00:006.3[facility] XasstkoHBZKXKLDTX8818-69-88 13:00:004.26[facility] XtfvnygQBUWZOVVMT5184-63-96 13:00:0013.2[facility] XBTHPUGNIW6713-81-72 13:00:0093.7[facility] CitlxkcEJJREMJHOX2225-56-51 13:00:00 Test Item Value Reference Range Interpretation Comments MCH (test code = MCH) 31.0 pg 27.0-31.0 N [facility] PkwtkisOGWUGWWHHD3449-67-46 13:00:00Slight *ABN*(07/07/2011 07:00:00) [facility] TpawmidKJGJITNBIE6167-57-79 13:00:00Slight *ABN*(07/07/2011 07:00:00) [facility] QdpuvljNWPDQGTFXJ2217-26-41 13:00:00Slight (07/07/2011 07:00:00) [facility] GzcfthlAQIYMJJANY7778-06-33 13:00:000.0[facility] HermannHEMATOLOGY 2011-07-07 13:00:000.2[facility] TebgnwfCOAVMWCLVB0552-64-66 13:00:003.4[facility] TkutzokCFPFUZIQMW3012-83-04 13:00:000.4[facility] EdkxudtYXBQEIMYNG8745-59-12 13:00:000.4[facility] JyngyrjSOZNQAZZMY6228-51-94 13:00:002.3[facility] POYTDOSCIF5294-17-54 13:00:003.1[facility] EnvlnisXFCPSNIFRZ9991-72-26 13:00:005.8 [facility] YdetyxbAGSRIPZHYU5819-84-13 13:00:0036.1[facility] HermannHEMATOLOGY 2011-07-07 13:00:0054.6[facility] HermannBEDSIDE GLUCOSE TFULGNT0376-36-54 02:20:45433Mffluvyd HermannBEDSIDE GLUCOSE WDCNHRU8796-88-03 22:22:0086[facility] VgtozogDIBQVJEPG9838-56-08 11:45:002.680[facility] EfowsfuZYJQYVZHU5308-18-34 11:45:002.64[facility] IyhadjnRDIENPTNJ9231-00-60 11:45:0044[facility] YRMMLGGIV1838-04-40 11:45:0039[facility] TdybvgrVGXDMYTRT6260-32-69 11:45:08919 [facility] NhtqeheLWNYJGOAI7916-77-16 11:45:77409Lqpholcq HermannCHEMISTRY 2011-07-06 11:45:007.3[facility] OgagemkRCHICIWLG4868-87-75 11:45:003.7[facility] GbrudkpHPZUUDSCK4768-71-76 11:45:0051[facility] XpzthpfTHQZYVSNB2953-04-44 11:45:0016[facility] YzjuvqbMZOPXWBJO6738-38-81 11:45:003.6[facility] PBYVWMWIY0855-92-46 11:45:001.0[facility] AuvhtlsMUKUOZDWG6212-96-62 11:45:0012 [facility] IuzcbkwZWPXSCMOW0707-18-62 11:45:000.4[facility] HermannCHEMISTRY 2011-07-06 11:45:008.8[facility] ZjucsrtCOISNZJJF3636-06-50 11:45:0013.5[facility] VovadeuJQFQZMSWN6284-40-51 11:45:0017[facility] BxxnljzLAQRBETZR6656-83-29 11:45:0020[facility] KnvkwjlLLBKAFKUL0323-32-33 11:45:36801Momzuiom Rowdy XJJHJIWTP4036-10-30 11:45:0028[facility] UazqgqzYWHMDJRRT1835-82-09 11:45:001.2 [facility] IpffvgwOHIMPLNGD0258-82-03 11:45:003.5[facility] HermannCHEMISTRY 2011-07-06 11:45:53313Ikaffgdh LtcxclrPUKTNVNLO5743-59-05 11:45:57783Upioroed NhmcrknDZJEIPUAX9477-68-08 11:45:000.9[facility] CmgxvzgGISHMHWTC3182-11-59 11:45:000.19[facility] QvhnlslQWXLKPHOH3286-53-46 11:45:000.7[facility] MTATOXMTZ9466-58-22 11:45:0075[facility] DqgxcmyECPQXVEUWF0132-46-91 11:45:0093.0 [facility] RdablqsVMNFYVTYEF4382-14-12 11:45:0033.8[facility] HermannHEMATOLOGY 2011-07-06 11:45:00 Test Item Value Reference Range Interpretation Comments MCH (test code = MCH) 31.4 pg 27.0-31.0 H [facility] PbypwjnAKSNWYROOU3992-02-16 11:45:0012.4[facility] HermannHEMATOLOGY 2011-07-06 11:45:0036.7[facility] PplwbklKXYBGYFXMO4749-97-43 11:45:009.7[facility] NalkjgkIJMJLDHKII0366-72-47 11:45:0014.1[facility] HlkyhxzCWIAINFAHZ3562-41-69 11:45:0046[facility] GqvqqswNHCIAOBROM4009-00-08 11:45:005.9[facility] WWHQAMRSLF1964-58-67 11:45:003.94[facility] KwyuflbKARPKBOBMP0192-68-48 11:45:00 Slight *ABN*(07/06/2011 05:45:00)[facility] KkvuzrwPUYIXRFXBJ5087-19-62 11:45:00 Slight *ABN*(07/06/2011 05:45:00)[facility] RaqtcctAWJZBZWOMA0562-32-04 11:45:00 Slight *ABN*(07/06/2011 05:45:00)[facility] ShjrvikNIZWLOGIGO2001-78-19 11:45:00 Slight *ABN*(07/06/2011 05:45:00)[facility] HdpnbmnWQGWZGYKWH7367-38-13 11:45:00 Slight (07/06/2011 05:45:00)[facility] HzuwffsOOESTIESYN1606-43-84 11:45:001.0 [facility] VkhscogEUBYYDXQZF2835-06-91 11:45:001.0[facility] HermannHEMATOLOGY 2011-07-06 11:45:005.0[facility] QswieyoAWTSAIERTW0169-36-31 11:45:004.0[facility] JrbnobwACZFJPTSTA4813-30-47 11:45:0048.0[facility] UixijzaIZVGLZBCYA9012-60-95 11:45:002.5[facility] IkcvgplEJBNFIZQBK0987-57-84 11:45:000.3[facility] LOYMKWXNZA6386-41-16 11:45:000.1[facility] FiljsdrSBDSNYJFYF9737-16-17 11:45:000.0 [facility] RcjhuodWCQLUHZPXJ9126-61-51 11:45:0039.0[facility] HermannHEMATOLOGY 2011-07-06 11:45:002.0[facility] JcmxdkdVGZTPXCCGE3808-79-86 11:45:002.8[facility] MacmutoLCVDMQWIE6990-51-75 03:56:24475Dpjouolw YyfmyqiLKONTNGEM8333-01-83 03:56:000.5[facility] BaheiqcHFVZKXDZW5837-59-12 03:56:000.18[facility] GXRPSQOZQ6810-38-40 03:56:0079[facility] HzdneakFUBIXXUGB7184-56-66 03:56:000.8 [facility] KkevxoaHNKMOLFPB1813-66-05 03:56:004.4[facility] HermannCHEMISTRY 2011-07-06 03:56:000.4[facility] MxiutuwPXPAUUBLR8181-40-68 03:56:0014[facility] JoqeuxxKFKFRQYNK9894-26-80 03:56:008.8[facility] VromcfrWCICJRJTH2156-37-52 03:56:0014[facility] TurezsdLHELCMHPO5655-93-89 03:56:0033[facility] XYWHCRVSP4095-64-68 03:56:001.4[facility] RgpxltkAUMWVXZWD8492-25-98 03:56:28466 [facility] GgosmjgDQDPRFIPN4286-50-97 03:56:003.8[facility] HermannCHEMISTRY 2011-07-06 03:56:29144Qsedjvaq GizdknuVBAEDLZFC3663-22-06 03:56:0018[facility] SrmzuggACWTLRYNG2558-01-13 03:56:0054[facility] LhhywiaFPOGHBBMK9894-90-60 03:56:008.9[facility] HfcrarkJSBWKFCKP7605-26-16 03:56:008.1[facility] QYUJQMPDM8365-69-10 03:56:003.7[facility] TuwxbxzZQFAPUDPP0722-56-09 03:56:0020 [facility] NpzrmocRHHQPQEYW3405-12-16 03:56:81208Erzdnbnr HermannCHEMISTRY 2011-07-06 03:56:000.6[facility] HlowizhCCKSDDHYUY2256-99-02 03:56:00 Test Item Value Reference Range Interpretation Comments PTT (test code = PTT) 27.8 s 22.9-35.8 N [facility] XvwhgpkRLLHACFWII5616-04-48 03:56:00 Test Item Value Reference Range Interpretation Comments PT (test code = PT) 17.7 s 12.0-14.7 H [facility] NljjcgrZVSACPFYEI1093-05-63 03:56:001.46[facility] HermannHEMATOLOGY 2011-07-06 03:56:004.11[facility] UuwfbzkYWAOJQKYGU4204-31-91 03:56:0049[facility] TkyajsaBSLKRJHLTK7354-60-59 03:56:009.1[facility] KdesmtaKLWCWBVBJL5137-69-85 03:56:0014.1[facility] LguetpoLRDFFUCOVK2083-29-75 03:56:005.5[facility] HQCMXWQKMP1792-10-24 03:56:0037.2[facility] IwkufaxRJKXRYWNJT1138-13-79 03:56:00 90.5[facility] GoetwvxDXRUAEAKGS7187-16-26 03:56:00 Test Item Value Reference Range Interpretation Comments MCH (test code = MCH) 30.8 pg 27.0-31.0 N [facility] QawpmjwLJUFNQZNLQ0298-81-67 03:56:0034.0[facility] HermannHEMATOLOGY 2011-07-06 03:56:0012.6[facility] SyvucsbRIFTFXYEAO6943-84-90 03:56:002.0[facility] CwmlqirHVQABQBMZU1670-94-45 03:56:000.4[facility] VmtxhmtJEHQGOWUKU4949-40-23 03:56:00Slight *ABN*(07/05/2011 21:56:00)[facility] TfuvosxIMQHPBCTRC2050-43-35 03:56:000.1[facility] AzrovlzTZJTVORBNH5368-84-23 03:56:0036.0[facility] JIFWCQTBHM2387-86-53 03:56:000.1[facility] ZvinldfSSREWNDPLM8839-70-58 03:56:003.0 [facility] CkxlkoyDCXVYVYACD6531-59-49 03:56:0054.0[facility] HermannHEMATOLOGY 2011-07-06 03:56:000.0[facility] LybhvqjRQYHZFXNPV1499-79-47 03:56:007.0[facility] EblykplXOJBVOKDKU4880-54-53 03:56:002.0[facility] YyqhejnWCDBELKSQY5978-27-43 03:56:001.0[facility] XwguftfTERDXDLCIS2182-79-52 03:56:000.0[facility] IQUGXTETOD8657-27-50 03:56:002[facility] OyiibbbUYZIKLRMKW5066-06-02 03:56:00 Normal (07/05/2011 21:56:00)[facility] HermannBEDSIDE GLUCOSE YPAOJVB1494-32-17 17:34:76257Tdmpnlzs HermannBEDSIDE GLUCOSE FBPUHYX9025-93-13 13:53:20968Kwlrueiz HupqovmKEWVIASYL8096-38-42 11:00:002.1[facility] KffderpAPQVVRQQO7588-18-22 11:00:0010.4[facility] DpmojroEPRGGMKHV6630-13-60 11:00:0029[facility] TWPVHLBUK7348-88-92 11:00:008.2[facility] UbeycbsOEGKXXOUN7694-80-94 11:00:99865 [facility] XnbehjmAUJYMUZDX2710-85-82 11:00:80161Aviampts HermannCHEMISTRY 2011-05-05 11:00:004.4[facility] GbugreiXXUIFSWMS9643-09-18 11:00:001.2[facility] NxuwtwzYWUJVKFRQ2313-05-96 11:00:0086[facility] UfinbjoZRSQUQUMG3434-33-43 11:00:0025[facility] XwifeouCJTBEYDFR0828-74-13 11:00:0089[facility] QVHXZCARR6416-83-65 11:00:0042[facility] OecmzmxBHCRGICIJ9418-70-70 11:00:60689 [facility] KyrzrgvIWCYXYIVZ0894-05-19 11:00:37579Jylluprq HermannCHEMISTRY 2011-05-05 11:00:003.67[facility] LavjpbfVMAUXWAEB0602-33-14 11:00:002.5[facility] XurlrvnQHJLCHTABY1440-26-02 11:00:00 Test Item Value Reference Range Interpretation Comments PTT (test code = PTT) 44.8 s 22.9-35.8 H [facility] GncactzAYUENEEIXA0471-21-54 11:00:00 Test Item Value Reference Range Interpretation Comments PT (test code = PT) 21.1 s 12.0-14.7 H [facility] LuakvkfOCPQBEPKNM3889-05-98 11:00:001.84[facility] HermannHEMATOLOGY 2011-05-05 11:00:00 Test Item Value Reference Range Interpretation Comments MCH (test code = MCH) 31.5 pg 27.0-31.0 H [facility] EvjdhvtDNRDUHCZOL5090-38-71 11:00:009.7[facility] HermannHEMATOLOGY 2011-05-05 11:00:0034.0[facility] PegxzukFRZKAUWTQI0192-72-34 11:00:0048[facility] UrtjgtvRFZQXXDLZD0869-71-36 11:00:0012.5[facility] CjugdmbSGJMZGOCOC7777-94-47 11:00:004.3[facility] WrbqxpxJMSXIEDWQK4136-92-16 11:00:003.97[facility] ZCSXIOBGRW0807-43-49 11:00:0036.7[facility] VehytydZSAPIBFOMG1057-73-20 11:00:00 92.5[facility] IdxgzffAKPGDQHASP6876-63-21 11:00:0015.1[facility] HermannHEMATOLOGY 2011-05-05 11:00:00Slight *ABN*(05/05/2011 05:00:00)[facility]annHEMATOLOGY 2011-05-05 11:00:00Slight *ABN*(05/05/2011 05:00:00)[facility]annHEMATOLOGY 2011-05-05 11:00:000.0[facility] TjsocgxPAFLAMJQKI4300-21-71 11:00:000.0[facility] JpxvoqqLCNCDZEUGK4663-55-48 11:00:0051.0[facility] DigrmawPDKUEMOMZW6887-43-70 11:00:000.0[facility] UckhrhoMNWCLFXPYO1666-12-52 11:00:0042.0[facility] MLNRWFSMQX0232-77-10 11:00:000.1[facility] GhdbhgiSALLTNMRME8862-71-12 11:00:000.2 [facility] ShksvcaQLWBIXVQQS6454-98-12 11:00:002.2[facility] HermannHEMATOLOGY 2011-05-05 11:00:001.8[facility] LsuiipfMBPTEWXJBN5201-05-65 11:00:002.0[facility] FmgvhzgWLUSRNTNTU1689-55-99 11:00:005.0[facility] HermannBEDSIDE GLUCOSE TESTING 2011-05-05 03:20:52590Yebvvyte OfgdbcaSYSEXQAKRD0312-46-91 10:30:000.0[facility] KtwqxecSLGPONVBZD1400-36-79 10:30:000.1[facility] YuqvhtzJOTLSFRBEV3574-49-42 10:30:006.1[facility] BijvpbqNAFWWQFDME9000-55-97 10:30:0033.5[facility] SNSVGULKYF7615-89-97 10:30:0056.9[facility] KwjipglTANQTREKHJ6708-47-47 10:30:00 1.5[facility] YlxvjbeWXIAMDAFTZ4286-97-54 10:30:002.6[facility] HermannHEMATOLOGY 2011-05-04 10:30:000.3[facility] QnybvmhMPHHSFUMPH7491-28-78 10:30:002.9[facility] DmwijjkGAUDYMSLLV4557-60-85 10:30:000.6[facility] ShqohorJULOIEVHDO7255-93-84 10:30:00 Test Item Value Reference Range Interpretation Comments PTT (test code = PTT) 43.4 s 22.9-35.8 H [facility] PwfuxusEDVAZUDTQD5607-30-53 10:30:00 Test Item Value Reference Range Interpretation Comments PT (test code = PT) 18.2 s 12.0-14.7 H [facility] PlvqtegWTBHUICROS1160-06-20 10:30:001.52[facility] HermannHEMATOLOGY 2011-05-04 10:30:009.8[facility] DrpbytrTQIEQMEYZQ3115-14-37 10:30:0034.2[facility] BlpesgsQZZCZRWKJZ5054-21-68 10:30:0015.0[facility] KyempbfZXVRODUQIA2955-87-66 10:30:0051[facility] NaxyyjqUCNCXQXCQI7689-64-30 10:30:004.06[facility] BUXIGQGNHY7731-27-40 10:30:0012.6[facility] UaoixzgYXPUDTKNOZ0910-55-12 10:30:00 Test Item Value Reference Range Interpretation Comments MCH (test code = MCH) 31.2 pg 27.0-31.0 H [facility] MtfsgetLKWYQGHZJA5278-36-51 10:30:004.5[facility]annHEMATOLOGY 2011-05-04 10:30:0037.0[facility] TzozpyqUKVUAQHXEX7579-81-15 10:30:0091.1[facility] OwtiqwpDJDICKVXKG3470-06-29 10:40:001.41[facility] UypusoyPNOKIIBIUW8880-37-53 10:40:00 Test Item Value Reference Range Interpretation Comments PT (test code = PT) 17.2 s 12.0-14.7 H [facility] OcqqujvHEFMZITRUV4751-16-89 10:40:00 Test Item Value Reference Range Interpretation Comments PTT (test code = PTT) 37.6 s 22.9-35.8 H [facility] VcyminbSREYWCBNXB9427-58-58 10:40:0010.0[facility]annHEMATOLOGY 2011-05-03 10:40:0066[facility] EvrzkuxAJFKTVJQRX4751-88-08 10:40:0091.6[facility] XxtefuyFNVAUDYZUN8393-49-84 10:40:00 Test Item Value Reference Range Interpretation Comments MCH (test code = MCH) 31.3 pg 27.0-31.0 H [facility] UsczhqlCTTIJMPUEB0326-52-01 10:40:0034.2[facility]annHEMATOLOGY 2011-05-03 10:40:0015.4[facility] CanwmrkWNMMKTQWDB5886-50-98 10:40:0038.7[facility] SjjvjqzONBLYMYOPF7943-99-59 10:40:004.8[facility] RyeifzwOARWAATKFI3470-21-39 10:40:004.23[facility] TqwdfcnHLHLAMYUQD0038-22-46 10:40:0013.2[facility] YQENLYIYUR5503-94-70 10:40:00Slight *ABN*(05/03/2011 04:40:00)[facility] WLJKJRAZCJ6704-28-67 10:40:000.0[facility] PjksjjeJXWEFMYJRS7676-06-56 10:40:00 Slight *ABN*(05/03/2011 04:40:00)[facility] IdokznkREBYPRCLFP1533-13-65 10:40:00 2.0[facility] NpsklzgWFVSYTZDGC5187-83-96 10:40:006.0[facility]annHEMATOLOGY 2011-05-03 10:40:004.0[facility] XexjowfKOUIJAGDNR8477-24-68 10:40:001.0[facility] LxmxkzcBYBBXHCIRO1507-77-66 10:40:000.3[facility] UjlqugiXNSHXHHVUQ1135-88-01 10:40:0054.0[facility] WlcifrqSLZEZJZIWT4908-47-39 10:40:0033.0[facility] AOUWVUCAHX8493-31-08 10:40:000.2[facility] RjbymoxKJMCWQFANY3609-08-47 10:40:002.7 [facility] OehqdnqVSUPVPFKTN4098-03-88 10:40:001.6[facility] HermannHEMATOLOGY 2011-05-03 10:40:000.2[facility] AezilwmTSAOIUYRRQ1981-87-36 10:40:000.2[facility] LwdvffkLEOYLYEWXR9110-23-48 10:40:000.0[facility] JogamrcPDIQAPYTSY1559-26-11 10:40:005.1[facility] JzqajbkKFCMMDNJIA2545-80-51 10:40:003.4[facility] DQVXFQQKCY5191-02-52 10:40:000.4[facility] ZyjknshWUMKLWMDNK1389-34-42 10:40:001.7 [facility] AwlnzvvLIKLFOBLSV7021-01-72 10:40:002.6[facility] HermannHEMATOLOGY 2011-05-03 10:40:0036.4[facility] YioykmdYBAVLATPAK4529-87-73 10:40:0054.7[facility] ShtojbzZEGUCTHOXU4657-75-01 10:15:00Slight *ABN*(05/02/2011 04:15:00)[facility] CdmbzqgXRJBPKOWUH9337-03-64 10:15:00Slight *ABN*(05/02/2011 04:15:00)[facility] JzgbgdmWIGDBCTZWA3687-63-32 10:15:000.0[facility] BuuinccILJUOZAXZG7810-40-25 10:15:00Slight (05/02/2011 04:15:00)[facility] FynmbypGGEPHRJBSX5159-40-00 10:30:00Slight (05/01/2011 04:30:00)[facility] IsmyyksYSSJZSFKCQ5153-39-02 10:30:00Slight *ABN*(05/01/2011 04:30:00)[facility] QqfgmmjNOGENRRNGA3037-94-49 10:30:00Slight (05/01/2011 04:30:00)[facility] ChxxawoKCLBFOAHCM1176-56-39 10:30:00Slight *ABN*(05/01/2011 04:30:00)[facility] NcelfsjDFRACUNWHO5099-27-88 10:30:005.0[facility] GflbektZXUQDMDSPP3517-82-69 10:30:000.0[facility] TLKYTITQER3568-33-24 16:15:005[facility] UigxbtjLTGAIYOCKB2462-34-74 16:15:48756 [facility] NcplxdeJSFZUOKELA0314-22-89 16:15:282158Qxuvhypw HermannHEMATOLOGY 2011-04-30 11:00:00Normal (04/30/2011 05:00:00)[facility]annHEMATOLOGY 2011-04-30 11:00:00 Test Item Value Reference Range Interpretation Comments dRVVT (test code = dRVVT) 36.9 s N [facility] KdwkjmaHUWEODZIIZ2283-99-94 11:00:00Negative (04/30/2011 05:00:00) [facility] YjgaxkbNLBZTNCXSP1296-40-63 11:00:007.0[facility] HermannIMMUNOLOGY 2011-04-30 11:00:001.65[facility] McnqzdnAHWOAODLGS8480-45-18 11:00:000.78[facility] BagzgkvXXOBPDEPTT5947-58-75 11:00:000.69[facility] UukqnbcXTCAQVGUZR1269-99-49 11:00:0051.1[facility] NkzncokNRFKCRPXQP1329-43-77 11:00:004.2[facility] OVBNLYJOGF2923-57-50 11:00:0011.2[facility] GazlqnqVVYUFNNBQL6245-21-66 11:00:00 9.9[facility] KtndrebBBDHRPPXHW8925-27-41 11:00:0023.6[facility] HermannIMMUNOLOGY 2011-04-30 11:00:003.58[facility] PcvcgynUXNROLOZGM7673-58-88 11:00:000.29[facility] GmuznlvBZEVFAVQVQ8232-87-74 11:00:00<9[facility] CjllvnaGZMNDSMQVZ7480-31-88 11:00:00<9[facility] YvnouzfLFYDNURQQR0761-36-47 11:00:00<9[facility] QFNJWKFOPN9815-39-75 11:00:002[facility] PufmtdgPQONCLQYTL1110-74-96 11:00:004.3 [facility] TodiplhLNLDRPXWJN0467-21-99 11:00:006[facility] HermannCHEMISTRY 2011-04-29 11:20:008.3[facility] GidqqncKLQLMQPHZ3069-75-71 11:20:004.5[facility] TeauxssILFFSYZPR7613-16-65 11:20:89984Kettozfa CgpxguwDDBUGFTZX4248-14-66 11:20:0031[facility] FssgrbvLANLKZKPA8854-13-14 11:20:25819Hjajpaaj Noel SJWBHVGXZ8686-15-19 11:20:0022[facility] IqoznjxFCOJXEYBZ1134-19-93 11:20:001.4 [facility] NysrlvjVCHLWOFZC4504-76-53 11:20:53113Bzuaehlz HermannCHEMISTRY 2011-04-29 11:20:0011.5[facility] CazysgaXSWZZGXCB0065-12-43 11:20:007.2[facility] NeagnzlXGZCIVMNY9864-01-94 11:20:003.540[facility] CcmsqtwBAHWKPSWJD0203-93-51 11:20:00Slight (04/29/2011 05:20:00)[facility] HermannBACTERIAL - SEROLOGY 2011-04-28 16:58:00Negative 1(04/28/2011 10:58:00)[facility] HermannCHEMISTRY 2011-04-28 16:50:006.7[facility] JpbkjcbZGXACVJBO9179-36-40 16:50:0015[facility] PndvoxfFBKDQYPCJ8388-56-23 16:50:003.2[facility] NdqqxkhPAYPIGDBT9435-61-42 16:50:0046[facility] GhujanxDFPYWMKFU5419-93-65 16:50:000.2[facility] HBQLLYJYF9819-29-86 16:50:0017[facility] JoskeotYJJCRIUQQ0368-34-27 16:50:000.8 [facility] PyecwenHGCQCUVLY5466-30-88 16:50:003.5[facility] HermannCHEMISTRY 2011-04-28 16:50:000.6[facility] YgtlkkbYVVGDSTPM2029-04-68 16:50:000.9[facility] UrdeugiFOPEUFRJA5443-95-88 16:50:0030[facility] RgflpihGTFQVFDGD7516-74-45 16:50:008.0[facility] NkcwvggPAXVDFXNH7664-44-26 16:50:0099[facility] JAMWZSHFA9321-20-82 16:50:003.6[facility] ErtnixfENOGOGBDC4885-76-51 16:50:0026 [facility] YaqlexnULNOXZMOX7857-37-41 16:50:11444Lbfrtcdu HermannCHEMISTRY 2011-04-28 16:50:86[place] BycqpjaPTKBLUWWN2508-99-48 16:50:001.4[facility] IqxaxsiPPSLPAIOF8387-27-15 16:50:0011.6[facility] XnyaeajBMMIVHROLF5807-96-43 16:50:00 Test Item Value Reference Range Interpretation Comments Pat Od Value (test code = Pat Od 0.084 1 Value) [facility] OxtwysyIRSBWRCPXZ8185-66-42 16:50:00 Test Item Value Reference Range Interpretation Comments Pos CO Value (test code = Pos CO 0.376 1 Value) [facility] QpwjzhrWJVXKBFPDS5760-93-20 16:50:00Negative (04/28/2011 10:50:00) [facility] PdvegclYLYMAAVHBZ4634-81-49 16:50:00Normal (04/28/2011 10:50:00) [facility] YDHNKYG7494-46-62 10:52:00Product available (04/28/2011 04:52:00)[facility] JKOZVJD8989-02-58 10:52:00 Negative (04/28/2011 04:52:00)[facility] DiwxevtHHTNQPXQP5838-20-01 08:40:000.70 [facility] UkpshovOYYEICAKT5894-84-50 08:40:004.9[facility]annCHEMISTRY 2011-04-28 08:40:75644Gejnivci ZblcfuzOCQMKZDRU5556-88-83 08:40:04936Olwyzbcv JswpkceFSMSRVIHG4192-93-27 08:40:003.7[facility] JqlepplSYMMDVLGC1452-23-71 19:22:0024.0[facility] CmvoprxQLSPUFKWJF6313-37-01 19:22:00Positive *ABN*(02/17/2011 14:22:00) ??[facility] HrcesgtKJQETPIHRD4003-49-11 19:22:001:40 *ABN*(02/17/2011 14:22:00) ??[facility]BED[facility] GLUCOSE NNRITCO3619-42-98 15:42:37871.0[facility]annBEDSIDE GLUCOSE ZOUNGEM0942-96-81 12:42:71263.0 [facility] VyqgyquPTPRLXZWV2732-38-34 09:15:002.3[facility] HermannCHEMISTRY 2011-02-17 09:15:0010.0[facility] CrjpetlCXSVLLMRE4364-34-08 09:15:000.5[facility] HosoyzhRDTYPZAHV4898-76-29 09:15:0047.0[facility] YhjaekmIYSSBZFOV4852-91-21 09:15:0026.0[facility] ZqwzlhcJNUNRIOKB0169-17-29 09:15:007.0[facility] ZFLZTTSHK7526-76-68 09:15:008.5[facility] QomxvvpRZMUNKYMC9681-42-50 09:15:0030.0 [facility] NxznchwUKFGKLDBI1939-74-50 09:15:08004.0[facility]annCHEMISTRY 2011-02-17 09:15:004.5[facility] BceuauuYCBRUHTVV2371-55-07 09:15:002.9[facility] XgjzvirJGTLMZVCB5111-24-30 09:15:0016.0[facility] CdvpiodJELZPUHLR4692-99-71 09:15:76745.0[facility] JpyckgiRYXZUUAOR6058-37-17 09:15:001.2[facility] LABBSDRDE4040-54-50 09:15:59809.0[facility] TsjnaloNDZYDTRAN4804-24-52 09:15:00 Test Item Value Reference Range Interpretation Comments A/G Ratio (test code = A/G Ratio) 0.7 1 0.7-1.6 N [facility] OvlyaocMIIKLKYWW4220-17-21 09:15:004.1[facility]annCHEMISTRY 2011-02-17 09:15:00 Test Item Value Reference Range Interpretation Comments B/C Ratio (test code = B/C Ratio) 13.0 1 6-25 N [facility] CihbxmyJIRTDIWMU3102-38-46 09:15:0012.5[facility] HermannCHEMISTRY 2011-02-17 09:15:003.2[facility] SkqggqnAZBVAJHEAS0530-82-38 09:15:27190.0[facility] DcnnrfdXMLFSGWPQQ8580-19-39 09:15:009.7[facility] AorytucUCUERLELDT4384-87-55 09:15:0014.1[facility] WjaqaifEAQUOSILMP2956-37-87 09:15:004.65[facility] CMEVTUQMTI3281-02-80 09:15:0015.1[facility] VxviyriLMWYJMGUJA4247-04-56 09:15:00 8.9[facility] WemcvcmWKLEGAOADK2067-40-32 09:15:0042.5[facility] HermannHEMATOLOGY 2011-02-17 09:15:0091.4[facility] UrnwbwvONDYIBOUOT4611-66-16 09:15:0033.3[facility] IvrbhbcTBCEEQOZPZ8477-09-83 09:15:00 Test Item Value Reference Range Interpretation Comments MCH (test code = MCH) 30.4 pg 27.0-31.0 N [facility] DartkjpVXNBHHMIWR9180-18-61 09:15:007.8[facility] HermannHEMATOLOGY 2011-02-17 09:15:000.8[facility] KyybzajMJOOYHUHTC2834-73-69 09:15:000.2[facility] PnldubyQMCBSIYXOQ5639-87-03 09:15:000.0[facility] OojejgxTBXLJUETXZ8210-69-83 09:15:000.0[facility] OomoiraXFCZTQDVAU1940-32-09 09:15:009.5[facility] CIACDGKMQD3920-06-29 09:15:000.2[facility] QnfllzzXVDYKLVLQM5872-67-54 09:15:00 88.2[facility] JggafsiOWRTHDRZGF2011-82-53 09:15:000.3[facility] HermannHEMATOLOGY 2011-02-17 09:15:001.8[facility] HermannBEDSIDE GLUCOSE XUTSMED4039-62-75 01:39:00 155.0[facility] AybxeuaFUTJXKPULR6428-43-62 10:05:00 Test Item Value Reference Range Interpretation Comments INR (test code = INR) 1.07 1 0.85-1.17 N [facility] PzmpypeJGRXKNZRVN1759-41-99 10:05:00 Test Item Value Reference Range Interpretation Comments PTT (test code = PTT) 28.8 s 22.9-35.8 N [facility] YuwcmikWLEGRDMSIO6574-28-25 10:05:00 Test Item Value Reference Range Interpretation Comments PT (test code = PT) 13.9 s 12.0-14.7 N [facility] YfricpfYUWTTTOPI3730-72-52 09:15:002.8[facility] HermannCHEMISTRY 2011-02-16 09:15:0019.0[facility] KiuxgcjCHSMBQKUO4947-24-14 09:15:008.1[facility] BetkryaUBKTSPLIK8484-37-43 09:15:006.4[facility] IuxdfbnIHEIABLLA2558-46-04 09:15:0027.0[facility] YgynsivSPCEBQZGY1135-51-85 09:15:002.7[facility] XXKFWVSTE6125-16-79 09:15:005.0[facility] HclhsqwRXYDOCLSL6875-78-69 09:15:000.4 [facility] UpxtdmzHJZHNRISK0410-90-14 09:15:0038.0[facility] HermannCHEMISTRY 2011-02-16 09:15:0093.0[facility] HwjhvsnERTXCRCHP6561-81-81 09:15:003.6[facility] YziugjvIVCAPIJJO2599-67-26 09:15:78858.0[facility] JfbxfbhCEFSYQQBJ6811-24-27 09:15:29188.0[facility] AffgeqkFSOJCFGET5581-55-10 09:15:0019.0[facility] DQHTKISXL8350-40-93 09:15:001.2[facility] LscpwbcKZLSOKVFO0622-68-34 09:15:00 Test Item Value Reference Range Interpretation Comments A/G Ratio (test code = A/G Ratio) 0.7 1 0.7-1.6 N [facility] RvraxtkQPQOQQMKQ2152-18-22 09:15:003.7[facility] HermannCHEMISTRY 2011-02-16 09:15:00 Test Item Value Reference Range Interpretation Comments B/C Ratio (test code = B/C Ratio) 16.0 1 6-25 N [facility] GyrirfsFXMYTDCTC3043-27-13 09:15:0011.6[facility] HermannCHEMISTRY 2011-02-16 09:15:002.3[facility] VxovotnZOYZSAKSHN2586-20-86 09:15:0018.7[facility] ZqnnhjvWEXXUSCELV2938-42-14 09:15:0075.9[facility] SscixfrEIEKPAIPSW8237-87-62 09:15:000.0[facility] CryhgovKRWOPXQXXF8701-55-45 09:15:000.1[facility] QFMPIRMAQN4129-24-58 09:15:001.8[facility] JmshakgLSHPRYKVNO9042-79-01 09:15:000.4 [facility] JuqowsiBYZVOXDHSI7004-44-64 09:15:000.2[facility] HermannHEMATOLOGY 2011-02-16 09:15:007.3[facility] XpzbrohHUTSBFCBDJ8235-04-24 09:15:000.9[facility] LmwldxxWRKEVELGBT2226-94-47 09:15:004.3[facility] SruwrvjHOWYDGVBLN8516-24-10 09:15:0013.0[facility] PmkubdfBVPLTLDAQT8435-43-85 09:15:0038.5[facility] SWETQLWEDH7853-91-70 09:15:004.23[facility] HhfxyhpRFYHIFXXQW8477-20-15 09:15:00 9.6[facility] XxchjbzHKRPMJEMDC0338-08-95 09:15:00 Test Item Value Reference Range Interpretation Comments MCH (test code = MCH) 30.7 pg 27.0-31.0 N [facility] WfyokjrQJZSNKBDVM9573-92-03 09:15:0091.1[facility] HermannHEMATOLOGY 2011-02-16 09:15:0014.6[facility] KjkxqunGKYQABVCRU9708-31-98 09:15:0033.6[facility] GrhtlicUYKAZJQOOK6007-23-20 09:15:81717.0[facility] FueqtkwVFKKOVGYCR6096-25-86 09:15:009.8[facility] HermannBACTERIAL - MWNNIUDM6401-18-19 16:30:00Negative (02/15/2011 11:30:00) ??[facility] HermannMICRO MISC - ZAAIPEPW0474-99-57 16:30:00 Negative 1(02/15/2011 11:30:00) ??[facility] TbmdybbKACFWAAKX8732-26-84 11:10:00 0.9[facility] KphbckiQYETHQGHL2449-20-48 11:10:0032.0[facility] HermannCHEMISTRY 2011-02-15 11:10:000.15[facility] WgbxgjxJTTKJDRETV6154-44-61 11:10:000.0[facility] OrqkcofZDFHKYFMDF7842-48-13 11:10:000.0[facility] KoflnmpEMULDVDEVW9261-15-37 11:10:000.8[facility] AjtulziEDMBLQUPAS7761-53-50 11:10:002.0[facility] WMQFKHCRYJ4253-96-71 11:10:007.1[facility] OozgofyPZKARLVXEN4913-42-99 11:10:000.5 [facility] XrknqhyMAARLFOIYH4344-16-90 11:10:000.3[facility]ann[facility]MATOLOGY 2011-02-15 11:10:007.8[facility] YeutptkMYNLRMGCNO1181-50-57 11:10:0020.3[facility] JqvxfydOSMFVNDNLJ4357-03-96 11:10:0071.1[facility] UvrsuuxPSDAERYQKP1688-15-31 11:10:0010.0[facility] ZvfiycxUYAWLFCEEU3847-18-66 11:10:0091.5[facility] ANBKGHHCHV1395-03-60 11:10:0038.9[facility] IhfusniMGQGKTTTGE7362-06-60 11:10:00 4.25[facility] KaofpyqMXHYBRGJLS0235-58-29 11:10:0012.9[facility]annHEMATOLOGY 2011-02-15 11:10:0033.2[facility] PntpbgvKDRFCAHZAC9865-18-42 11:10:00 Test Item Value Reference Range Interpretation Comments MCH (test code = MCH) 30.4 pg 27.0-31.0 N [facility] WjqqkujCRTIYSCWNX4847-58-44 11:10:0010.0[facility]annHEMATOLOGY 2011-02-15 11:10:0014.9[facility] YpuubflSEAFWUHOSW6411-46-25 11:10:17740.0 [facility]annVIRAL - LBAIOVJM0442-41-14 05:20:00Negative 5(02/15/2011 00:20:00) ??[facility]annVIRAL - LCDXTTTA4694-05-01 05:20:00Negative (02/15/2011 00:20:00) ??[facility] QflbmbfMAWCBNBBT7722-90-21 05:07:0037.0[facility] BdeskgpLGFESUMUR3872-71-83 05:07:000.15[facility] EcrsvduDEUSKCMGO2595-89-93 00:24:000.14[facility] TpmxntaCXRWGCWBL1039-50-70 00:24:0048.0[facility] EXNMXLZHN1253-31-62 00:24:005.0[facility] DaxyoywHIIOZKPTA4726-09-31 00:24:0040.0 [facility] ZwffxupBNNYWZATA7984-10-46 00:24:000.5[facility]annCHEMISTRY 2011-02-15 00:24:003.3[facility] ExmbpuoMAUGOZJZA4910-15-31 00:24:0016.0[facility] XkdsjbhORDHMXXLR0653-52-37 00:24:008.4[facility] HhdhjizHTKNPBOCA3665-35-16 00:24:007.5[facility] LzjbsliATNBKGMIS9996-59-00 00:24:0027.0[facility] YGOURMWQR2202-65-12 00:24:63142.0[facility] EkkumwtTMBMIJSXX3721-74-89 00:24:004.2 [facility] WqqmrijCURDFMBUM1545-19-10 00:24:00 Test Item Value Reference Range Interpretation Comments A/G Ratio (test code = A/G Ratio) 0.8 1 0.7-1.6 N [facility] UhvmcrxLFZOSWOSU1180-33-61 00:24:0013.9[facility] HermannCHEMISTRY 2011-02-15 00:24:00 Test Item Value Reference Range Interpretation Comments B/C Ratio (test code = B/C Ratio) 15.0 1 6-25 N [facility] GiwyovgSKGBMNBSR3590-14-42 00:24:003.9[facility]annCHEMISTRY 2011-02-15 00:24:46864.0[facility] UizhflzCKERBISOW5934-81-01 00:24:001.4[facility] HjtnldtPPKPYCYTX5654-35-86 00:24:0021.0[facility] ResdgteTAOHWREMT3001-88-18 00:24:95064.0[facility] FfpbkhyCXOXBEKDN7599-36-63 23:50:57303.0[facility] APMUXVLRRM8569-15-76 23:50:00 Test Item Value Reference Range Interpretation Comments PT (test code = PT) 14.2 s 12.0-14.7 N [facility] WilmnreGWZPPFZULT0684-75-62 23:50:00 Test Item Value Reference Range Interpretation Comments PTT (test code = PTT) 22.7 s 22.9-35.8 L [facility] VcicolkRKWZVBNQKF4804-55-39 23:50:00 Test Item Value Reference Range Interpretation Comments INR (test code = INR) 1.1 1 0.85-1.17 N [facility] BnnomleFTUCBKEWKK2793-80-46 23:50:000.58[facility]annHEMATOLOGY 2011-02-14 23:50:00Normal (02/14/2011 18:50:00) ??[facility]ann[facility]MATOLOGY 2011-02-14 23:50:00Normal (02/14/2011 18:50:00) ??[facility]
[2020-08-04] MEDS ORDERED: TETANUS & DIPHTHERIA TOX,ADULT 0.5 ML VIAL ONE (14:37)
[2020-08-04] MEDS ORDERED: TRAMADOL HCL 50 MG TAB ONE (14:39)
--- NOTE | 2020-08-04 14:48 | EDPHYS ---
Physician Documentation [facility] Name: Tomas Suárez Age: 85 yrs Sex: Male : 1935 Arrival Date: 08/04/2020 Time: 13:26 Bed 4 Private MD: ED Physician Caio Franks HPI: 08/04 14:13 This 85 yrs old Black Male presents to ER via Wheelchair with complaints of Leg pm1 Abrasion. 14:13 The patient presents with an abrasion. The complaints affect the right burk. Context: pm1 The problem was sustained at home, resulted from stepping up on his truck and his foot slipped so his burk scrapped the foot step. Patient said he is able to walk and has no pain, the patient can fully bear weight, the patient is able to ambulate. Onset: The symptoms/episode began/occurred yesterday. Modifying factors: The symptoms are alleviated by nothing. the symptoms are aggravated by nothing. Associated signs and symptoms: Pertinent negatives calf tenderness, fever. Treatment prior to arrival includes: Bactroban placed by his home health nurse. It was her prescription though. Severity of symptoms: in the emergency department the symptoms are unchanged. Patient's family brought him in because they were concerned that there might be some swelling to the leg with the abrasion. Historical: - Allergies: 13:40 Bactrim; ll1 13:40 Demerol; ll1 13:40 Plavix; ll1 13:40 Sulfa (Sulfonamide Antibiotics); ll1 - PMHx: 13:40 Hypertension; High Cholesterol; Pace maker; Myocardial infarction; neuropathy; ll1 Hyperlipidemia; CHF; Atrial Fib; Gout; borderline diabetic; kidney disease; arrythmias; CVA; asbestos; - PSHx: 13:40 pacemaker; cardiac stents x3; back sx; neck sx; ll1 - Immunization history:: Flu vaccine is up to date. - Social history:: Smoking status: Patient denies any tobacco usage or history of. ROS: 14:13 Constitutional: Negative for fever, chills, and weight loss, Cardiovascular: Negative pm1 for chest pain, palpitations, and edema, Respiratory: Negative for shortness of breath, cough, wheezing, and pleuritic chest pain. 14:13 Neuro: Negative for headache, weakness, numbness, tingling, and seizure. 14:13 MS/extremity: Positive for abrasion, of the right burk, Negative for decreased range of motion, deformity, pain. 14:13 Skin: Positive for abrasion(s), of the right burk. Exam: 14:13 Constitutional: This is a well developed, well nourished patient who is awake, alert, pm1 and in no acute distress. Head/Face: Normocephalic, atraumatic. Neck: Trachea midline, no thyromegaly or masses palpated, and no cervical lymphadenopathy. Supple, full range of motion without nuchal rigidity, or vertebral point tenderness. No Meningismus. 14:13 Cardiovascular: Exam negative for acute changes, Rate: normal, Rhythm: regular, Pulses: no pulse deficits are appreciated, Edema: pedal edema, that is very mild, same amount bilaterally. 14:13 Respiratory: Exam negative for acute changes, respiratory distress, shortness of breath, Breath sounds: are clear throughout. 14:13 Skin: Appearance: normal except for affected area, abscess, not appreciated, cellulitis, is not appreciated, injury, abrasion(s), moderate sized abrasion noted, of the right burk. Vital Signs: 13:37 BP 130 / 66; Pulse 69; Resp 18; Temp 98.2; Pulse Ox 100% ; Weight 131.09 kg; Height 6 ll1 ft. 4 in. (193.04 cm); Pain 10/10; 13:37 Body Mass Index 35.18 (131.09 kg, 193.04 cm) ll1 MDM: 14:10 Patient medically screened. pm1 14:42 ED course: No appreciable swelling noted to the right leg with abrasion. Trace pedal pm1 edema on left leg is the same as right leg. Patient is able to walk and he agrees that no x-ray is need since he just scrapped his leg against the truck step versus hitting it. 14:46 Data reviewed: vital signs. Data interpreted: Pulse oximetry: on room air is 100 %. pm1 Interpretation: normal. Counseling: I had a detailed discussion with the patient and/or guardian regarding: the historical points, exam findings, and any diagnostic results supporting the discharge/admit diagnosis, the need for outpatient follow up, to return to the emergency department if symptoms worsen or persist or if there are any questions or concerns that arise at home. 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 Exp: ss 10/13/2021. Lot #: [id number]. } Route: IM; Site: right deltoid; 14:45 Follow up: Response: No adverse reaction Disposition: 16:48 Co-signature as Attending Physician, Caio Franks MD. rn Disposition: 08/04/20 14:47 Discharged to Home. Impression: Abrasion, right lower leg. - Condition is Stable. - Discharge Instructions: Abrasion. - Prescriptions for Bactroban 2 % Topical Ointment - Apply to affected area 1 application by TOPICAL route every 12 hours; 30 gram. Keflex 500 mg Oral Capsule - take 1 capsule by ORAL route every 8 hours for 10 days; 30 capsule. - Medication Reconciliation Form, Thank You Letter, Antibiotic Education, Prescription Opioid Use form. - Follow up: Emergency Department; When: As needed; Reason: Worsening of condition. Follow up: Private Physician; When: 2 - 3 days; Reason: Recheck today's complaints, Continuance of care, Re-evaluation by your physician. - Problem is new. - Symptoms have improved. Signatures: Caio Franks MD MD rn Smirch, Shelby, RN RN Andrea Joy, RADHA HOUSEKEEPING COORDINATOR pm1 Frida Steen RN RN ll1 Corrections: (The following items were deleted from the chart) 15:03 14:47 08/04/2020 14:47 Discharged to Home. Impression: Abrasion, right lower leg. ss Condition is Stable. Forms are Medication Reconciliation Form, Thank You Letter, Antibiotic Education, Prescription Opioid Use. Follow up: Emergency Department; When: As needed; Reason: Worsening of condition. Follow up: Private Physician; When: 2 - 3 days; Reason: Recheck today's complaints, Continuance of care, Re-evaluation by your physician. Problem is new. Symptoms have improved. pm1
--- NOTE | 2020-08-04 14:48 | ER ---
Nurse's Notes [facility] Name: Tomas Suárez Age: 85 yrs Sex: Male : 1935 Arrival Date: 08/04/2020 Time: 13:26 Bed 4 Private MD: Diagnosis: Abrasion, right lower leg Presentation: 08/04 13:37 Chief complaint: Patient states: Scrapped his R leg yesterday getting out of a truck. ll1 Abrasion down R leg, dressing in place. States his RLE started swelling yesterday after the incident. No SOB or CP. Coronavirus screen: Client denies travel out of the [place] in the last 14 days. At this time, the client does not indicate any symptoms associated with coronavirus-19. Ebola Screen: Patient denies travel to an Ebola-affected area in the 21 days before illness onset. Initial Sepsis Screen: Does the patient meet any 2 criteria? No. Patient's initial sepsis screen is negative. Does the patient have a suspected source of infection? Yes: Skin breakdown/wound. Risk Assessment: Do you want to hurt yourself or someone else? Patient reports no desire to harm self or others. Onset of symptoms was August 03, 2020. 13:37 Method Of Arrival: Wheelchair ll1 13:37 Acuity: CORNELIUS 3 ll1 Historical: - Allergies: 13:40 Bactrim; ll1 13:40 Demerol; ll1 13:40 Plavix; ll1 13:40 Sulfa (Sulfonamide Antibiotics); ll1 - PMHx: 13:40 Hypertension; High Cholesterol; Pace maker; Myocardial infarction; neuropathy; ll1 Hyperlipidemia; CHF; Atrial Fib; Gout; borderline diabetic; kidney disease; arrythmias; CVA; asbestos; - PSHx: 13:40 pacemaker; cardiac stents x3; back sx; neck sx; ll1 - Immunization history:: Flu vaccine is up to date. - Social history:: Smoking status: Patient denies any tobacco usage or history of. Screenin:01 Abuse screen: Denies threats or abuse. Denies injuries from another. Nutritional hb screening: No deficits noted. Tuberculosis screening: No symptoms or risk factors identified. Fall Risk None identified. Assessment: 14:11 General: Appears in no apparent distress. comfortable, Behavior is calm, cooperative, ss Denies fever, feeling ill, fatigue, chills. Pain: Complains of pain in right burk Pain currently is 2 out of 10 on a pain scale. Quality of pain is described as tender, Pain began 2-3 days ago. Is continuous. Neuro: Level of Consciousness is awake, alert, obeys commands, Oriented to person, place, time, situation, Radiology Scheduler are equal bilaterally Speech is normal, Facial symmetry appears normal. Cardiovascular: Capillary refill < 3 seconds is brisk in bilateral fingers. Cardiovascular: Pulses are palpable in right posterior tibial artery and left posterior tibial artery Edema pitting to right ankle. Respiratory: Airway is patent Respiratory effort is even, unlabored, Respiratory pattern is regular, symmetrical. GI: Patient currently denies diarrhea, nausea, vomiting. : No signs and/or symptoms were reported regarding the genitourinary system. EENT: Nares are clear. Derm: Skin is pink, warm \T\ dry. Musculoskeletal: Range of motion: intact in all extremities. Injury Description: Abrasion sustained to right burk is clean, no redness or warmth to surrounding tissues noted. Approximately 4-5 inches in length down burk. 14:43 Reassessment: cleaned wound with Hibiclens and NS. Pt tolerated well. Dressed with two ss non adherent dressing and Kerlix. requested large cylinder for ice prior to discharge. Vital Signs: 13:37 BP 130 / 66; Pulse 69; Resp 18; Temp 98.2; Pulse Ox 100% ; Weight 131.09 kg; Height 6 ll1 ft. 4 in. (193.04 cm); Pain 10/10; 13:37 Body Mass Index 35.18 (131.09 kg, 193.04 cm) ll1 ED Course: 13:26 Patient arrived in ED. rg4 13:39 Triage completed. ll1 13:40 Arm band placed on Patient notified of wait time. ll1 14:00 Andrea Joy NP is PHCP. pm1 14:00 Caio Franks MD is Attending Physician. pm1 14:02 Patient has correct armband on for positive identification. Bed in low position. Call light in reach. 14:11 Maria L Whitten, ROMY is Primary Nurse. ss 14:43 No provider procedures requiring assistance completed. Patient did not have IV access ss during this emergency room visit. Wound care: to abrasion, located on right burk was cleaned with Betadine, dressed with Neosporin, see nurses notes. 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 Exp: ss 10/13/2021. Lot #: [id number]. } Route: IM; Site: right deltoid; 14:45 Follow up: Response: No adverse reaction Outcome: 14:47 Discharge ordered by MD. pm1 15:03 Discharged to home via wheelchair, with family. 15:03 Condition: good 15:03 Discharge instructions given to patient, family, Instructed on discharge instructions, follow up and referral plans. medication usage, wound care, Demonstrated understanding of instructions, follow-up care, medications, wound care, Prescriptions given X 2. 15:03 Patient left the ED. Signatures: Maria L Whitten RN RN Andrea Joy, PLASTIC FINISHER PLASTIC FINISHER pm1 Ernestina Zuñiga, Nichol Thomas RN rg4 Frida Steen RN RN ll1
[2020-08-04 15:10] VITALS: BP 130/66; TEMP 98.2; O2SAT 100
== END 2020-08-04 15:03 | disposition home or self-care (01) ==
LOC: ER 13:24
DX: S80.811A Abrasion, right lower leg, initial encounter (principal); W22.8XXA Striking against or struck by other objects, initial encounter; Y93.89 Activity, other specified; Y92.009 Unspecified place in unspecified non-institutional (private) residence as the place of occurrence of the external cause; Z23 Encounter for immunization; Z95.0 Presence of cardiac pacemaker; Z95.818 Presence of other cardiac implants and grafts; Z88.1 Allergy status to other antibiotic agents; Z88.2 Allergy status to sulfonamides; Z88.5 Allergy status to narcotic agent; Z88.8 Allergy status to other drugs, medicaments and biological substances; I10 Essential (primary) hypertension
CPT/HCPCS: 90471; 90714; 99283

== ENCOUNTER 2020-08-08 18:19 | Emergency (ER) | payer OTHER ==
--- OUTSIDE RECORDS SUMMARY | 2020-08-08 18:39 | XMS REPORT | Continuity of Care Document ---
:1935 Author Organization [facility] t Address [address] [place] [address] Care Team Providers Name Role Phone Jose [...] RESPIRATOR 00 Y FAILURE, CHF Active 11/29/2018 [facility] ACUTE ON Diagnosis Active 2019-01-17 M emoria CHRONIC 11-29 09:46:00 l CHF ACUTE ON 00:00: Pankaj n CHRONIC 00 CHF Active 11/29/2018 [facility] J44.9 - Diagnosis Active 2017-052018-05-20 Ca moriroshni CHRONIC 06-14 15:41:00 l OBSTRUCTIV J44.9 - 00:01: Her greenwood E CHRONIC 00 PULMONARY OBSTRUCTIV R0 E PULMONARY R0 Active 8 [facility] [place] ATRIAL Diagnosis Active 2017-052018-04-19 Mem oria FIBRILLATI -16 16:22:00 l ON, CAD ATRIAL 00:00: Noel FIBRILLATI 00 ON, CAD Active 03/25/2018 [facility] Acute deep Acute deep Disease Active 2016-05 [place] vein vein 06-14 Method[place] thrombosis thrombosis 00:00: st (DVT) of (DVT) of 00 both lower both lower extremitie extremitie s s ALTERED Diagnosis Active 2016-052017-04-20 Ca evonne MENTAL 06-08 21:57:00 l STATUS ALTERED 00:00: Noel MENTAL 00 STATUS Active 04/08/2017 [facility] SENT BY Diagnosis Active 2016-052017-03-16 Me douglass DRShanice 05-16 15:25:00 l SENT BY 00:00: Noel DAMON 00 Active 03/16/2017 [facility] ACUTE DEEP Diagnosis Active 2016-052017-03-22 Memoria VEIN 05-16 08:39:00 l THROMBOSIS ACUTE 00:00: Jessica nn OF LEFT DEEP VEIN 00 LOWER THROMBOSIS OF LEFT LOWER Active 03/16/2017 [facility] CHEST PAIN Diagnosis Active 2015-052016-03-17 Memoria AFIB 0 22:03:00 l CHEST 00:00: [place] PAIN AFIB 00 Active 03/09/2016 [facility] CHEST Diagnosis Active 2016-01-20 Mem oria TIGHTNESS 01-16 15:11:00 l CHEST 00:00: Noel TIGHTNESS 00 Active 01/17/2016 [place] UNABLE TO Diagnosis Active 2015-05-28 Memoria URINATE 05-28 15:38:00 l UNABLE 00:00: [place] TO URINATE 00 Active 05/28/2015 [place] CHEST PAIN Diagnosis Active 2014-052015-05-01 Memoria 06-21 21:54:00 l CHEST 00:00: Noel PAIN 00 Active 04/20/2015 [facility], [place] FLANK PAIN Diagnosis Active 2015-02-02 Memoria 02-02 17:03:00 l FLANK 00:00: [place] PAIN 00 Active 02/02/2015 [facility] 722.93 - Diagnosis Active 2014-11-21 M emoria DISC DIS - 16:48:00 l NEC/NO 722.93 - 00:01: Pankaj n 724.02 - DISC DIS 00 "SPIN NEC/NO 724.02 - "SPIN Active 09/20/2014 [facility] SPITTING Diagnosis Active 2015-10-29 M emoria UP BLOOD, 07-06 10:05:00 l COUGHING SPITTING 12:00: Herm pinky UP MUCUS UP BLOOD, 00 COUGHING UP MUCUS Active 07/06/2014 [place] 785.6 - Diagnosis Active 2013-052014-08-06 Me moria ENLARGEMEN - 10:58:00 l T LYM 785.6 - 00:01: Noel ENLARGEMEN 00 T LYM Active 03/30/2014 [facility] MEDISTINAL Diagnosis Active 2013-052014-04-02 Memoria LYMPADENOP 05-23 06:14:00 l ATHY 00:00: [place] MEDISTINAL 00 LYMPADENOP ATHY Active 03/23/2014 [facility] HEMOPTYSIS Diagnosis Active 2013-052014-02-26 Memoria 0-19 00:32:00 l 00:00: [place] HEMOPTYSIS 00 Active 02/25/2014 [facility] ACS, CHEST Diagnosis Active 2013-052014-02-27 Memoria PAIN 0-19 07:54:00 l ACS, 00:00: Noel CHEST PAIN 00 Active 02/25/2014 [facility] MULTIFOCAL Diagnosis Active 2013-052014-03-13 Memoria PNEUMONIA, 0-19 17:32:00 l HEMOPTYSIS 00:00: Pankaj pena , ACS, C MULTIFOCAL 00 PNEUMONIA, HEMOPTYSIS , ACS, C Active 02/25/2014 [facility] A-FIB, Diagnosis Active 2014-02-02 Mem oria TACHYCARDI - 22:29:00 l A A-FIB, 21:00: Noel TACHYCARDI 00 A Active 01/25/2014 [facility] MEDIASTINA Diagnosis Active 2012-07-21 Memoria L 3-07 11:17:00 l LYMPHADENO 00:00: Pankaj pena PAUL MEDIASTINA 00 L LYMPHADENO PAUL Active 07/14/2012 [place] 486 - Diagnosis Active 2012-07-14 Mem oria "PNEUMONIA 1-22 15:30:00 l , ORGA" 486 - 00:01: Noel "PNEUMONIA 00 , ORGA" Active 05/31/2012 [facility] [place] ACUTE MN, Diagnosis Active 2011-052012-03-07 Memoria NSTEMI 0-18 08:55:00 l ACUTE 00:00: Noel MN, NSTEMI 00 Active 02/25/2012 [facility] LUMBAR Diagnosis Active 2011-12-14 Mem oria SPINAL 7- 21:47:00 l STENOSIS LUMBAR 00:00: Pankaj pena SPINAL 00 STENOSIS Active 12/01/2011 [facility] LUMBAR Diagnosis Active 2012-02-05 Mem oria STENOSIS, - 15:16:00 l LUMBAR LUMBAR 00:00: Noel RADICULOPA STENOSIS, 00 THY LUMBAR RADICULOPA THY Active 09/08/2011 [facility] GI BLEED Diagnosis Active 2011-09-02 M emoria 4-18 22:00:00 l GI BLEED 15:00: Pankaj n 00 Active 08/26/2011 [place] CHEST Diagnosis Active 2011-07-07 Mem oria PAIN, 2- 12:57:00 l THROMBOCYT CHEST 08:00: Jessica nn OPENIA PAIN, 00 THROMBOCYT OPENIA Active 07/05/2011 [facility] BIJAL Diagnosis Active 2011-08-22 Mem oria - 15:27:00 l BIJAL 00:00: Reading 00 Active 05/18/2011 [place] Cardiac Problem Active 2010-052018-12-03 Kaz david catheteriz 06-29 22:16:39 l ation Cardiac 00:00: Noel (procedure catheteriz 00 ) ation (procedure ) Active 04/28/2011 Problem 12/03/2018 [facility] [place],[facility] [place] Cardiac Problem Active 2010-052012-07-23 Kaz david catheteriz 2 09:02:15 l ation Cardiac 00:00: Noel catheteriz 00 ation Active 04/28/2011 Problem 07/23/2012 [facility], [facility] [place],[facility] [place] ATRIAL Diagnosis Active 2010-052011-04-30 Mem oria FIB, - 15:36:00 l UNSTABLE ATRIAL 15:47: Pankaj pena ANGINA FIB, 00 UNSTABLE ANGINA Active 04/27/2011 [facility] TEAR Diagnosis Active 2010-052011-09-30 Mem oria MEDIAL - 17:50:00 l MENISCUS TEAR 00:00: Noel MEDIAL 00 MENISCUS Active 03/16/2011 [place] BLOOD IN Diagnosis Active 2010-052011-03-27 M emoria STOOL 0-06 15:38:00 l BLOOD IN 00:00: Pankaj n STOOL 00 Active 02/12/2011 [place] Atrial Problem Active 2018-12-03 Memor ia fibrillati 22:16:39 l on Atrial Noel (disorder) fibrillati on (disorder) Active Problem 12/03/2018 [facility] [place],[facility] [place] Asbestosis Problem Active 2018-12-03 M emoria (disorder) 22:16:39 l Reading Asbestosis (disorder) Active Problem 12/03/2018 [facility] [place],[facility] [place] Congestive Problem Active 2018-12-03 M emoria heart 22:16:39 l failure Reading (disorder) Congestive heart failure (disorder) Active Problem 12/03/2018 [facility] [place],[facility] [place] Dizziness Problem Active 2018-12-03 Me moria (finding) 22:16:39 l Noel Dizziness (finding) Active Problem 12/03/2018 [facility] [place],[facility], [place] Deep Problem Active 2018-12-03 Memor ia venous 22:16:39 l thrombosis Deep Pankaj n of lower venous extremity thrombosis (disorder) of lower extremity (disorder) Active Problem 12/03/2018 [facility] [place],[facility], [place] Gout Problem Active 2018-12-03 Memor ia (disorder) 22:16:39 l Gout Noel (disorder) Active Problem 12/03/2018 [facility] [place],[facility], [place] Hypertensi Problem Active 2018-12-03 M emoria ve 22:16:39 l disorder, Noel systemic Hypertensi arterial ve (disorder) disorder, systemic arterial (disorder) Active Problem 12/03/2018 [facility] [place],[facility], [place] Myocardial Problem Active 2018-12-03 M emoria infarction 22:16:39 l (disorder) Pankaj n Myocardial infarction (disorder) Active Problem 12/03/2018 [facility] [place],[facility], [place] Monoclonal Problem Active 2018-12-03 M emoria gammopathy 22:16:39 l (disorder) Pankaj n Monoclonal gammopathy (disorder) Active Problem 12/03/2018 low platelets [facility] [place],[facility], [place] Morbid Problem Active 2018-12-03 Memor ia obesity 22:16:39 l (disorder) Morbid Herm pinky obesity (disorder) Active Problem 12/03/2018 [facility] [place],[facility] Pain Problem Active 2018-12-03 Memor ia (finding) 22:16:39 l Pain Reading (finding) Active Problem 12/03/2018 [facility] [place],[facility], [place] Sleep Problem Active 2018-12-03 Memor ia apnea 22:16:39 l (finding) Sleep Pankaj n apnea (finding) Active Problem 12/03/2018 [facility] [place],[facility], [place] Dizziness Problem Active 2011-08-30 Me moria 09:29:29 l Noel Dizziness Active Problem 08/30/2011 [facility], [place] AF - Problem Active 2012-07-23 Memor ia Atrial 09:02:15 l fibrillati AF - Pankaj n on Atrial fibrillati on Active Problem 3 [facility], [facility] [place],[facility], [place] Atrial Problem Active 2012-07-23 Memor ia fibrillati 09:02:15 l on Atrial Noel fibrillati on Active Problem 3 [place] Diabetes Problem Active 2012-07-23 Mem oria mellitus 09:02:15 l Diabetes Pankaj n mellitus Active Problem 07/23/2012 [place] Dizziness Problem Active 2012-07-23 Me moria 09:02:15 l Reading Dizziness Active Problem 07/23/2012 [facility], [facility] [place],[facility], [place] Fusion Problem Active 2012-07-23 Memor ia 09:02:15 l Fusion Reading Active Problem 07/23/2012 [facility], [facility] [place],[facility], [place] HTN - Problem Active 2012-07-23 Memor ia Hypertensi 09:02:15 l on HTN - Reading Hypertensi on Active Problem 3 [facility] [place], [place] Pain Problem Active 2012-07-23 Memor ia 09:02:15 l Pain Noel Active Problem 07/23/2012 [facility], [facility] [place],[facility], [place] Sleep Problem Active 2012-07-23 Memor ia apnea 09:02:15 l Sleep [place] apnea Active Problem 07/23/2012 [place] Fused Problem Active 2016-03-14 Memor ia structure 02:15:12 l (morpholog Fused Jessica nn ic structure abnormalit (morpholog y) ic abnormalit y) Active Problem 6 [facility], [place] CHEST PAIN Diagnosis Active 2011-02-16 Memoria NOS 11:42:00 l CHEST [place] PAIN NOS Active [place] ATRIAL Diagnosis Active 2014-02-02 Mem oria FIBRILLATI 22:29:00 l ON ATRIAL Noel FIBRILLATI ON Active [facility] ANGINA Diagnosis Active 2011-04-30 Mem oria DECUBITUS 15:36:00 l ANGINA Reading DECUBITUS Active [facility] SLEEP Diagnosis Active 2011-08-22 Mem oria APNEA NOS 15:27:00 l SLEEP Noel APNEA NOS Active [place] GASTROINTE Diagnosis Active 2011-09-[address] HEMORR 22:00:00 l NOS Noel GASTROINTE [address] HEMORR NOS Active [place] LUMB/LUMBO Diagnosis Active 2012-02-05 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:00 l DEGEN [place] LUMB/LUMBO SAC DISC DEGEN Active [facility] SPIN Diagnosis Active 2012-02-05 Mem oria STEN,LUMBR 15:16:00 l WO OMARI SPIN Reading STEN,LUMBR WO OMARI Active [facility] LUMBOSACRA Diagnosis Active 2012-02-05 Memoria L 15:16:00 l SPONDYLOSI Pankaj n S LUMBOSACRA L SPONDYLOSI S Active [facility] AMI Diagnosis Active 2012-03-07 Mem oria NOS-INITIA 08:55:00 l L EPISODE AMI Noel NOS-INITIA L EPISODE Active [facility] PNEUMONIA, Diagnosis Active 2014-03-13 Memoria ORGANISM 17:32:00 l NOS Reading PNEUMONIA, ORGANISM NOS Active [facility] ENLARGEMEN Diagnosis Active 2014-04-02 Memoria T LYMPH 06:14:00 l NODES Noel ENLARGEMEN T LYMPH NODES Active [facility] CHEST Diagnosis Active 2015-05-01 Mem oria PAIN, 21:54:00 l UNSPECIFIE CHEST Jessica nn D PAIN, UNSPECIFIE D Active [facility] ILLNESS, Diagnosis Active 2018-11-30 M emoria UNSPECIFIE 04:35:00 l D ILLNESS, Pankaj n UNSPECIFIE D Active [facility] ACUTE Diagnosis Active 2017-03-22 Mem oria EMBOLISM 08:39:00 l AND ACUTE Noel THOMBOS EMBOLISM UNSP DEEP AND VEI THOMBOS UNSP DEEP VEI Active [facility] SYNCOPE Diagnosis Active 2017-04-20 Me moria AND 21:57:00 l COLLAPSE SYNCOPE Jessica nn AND COLLAPSE Active [facility] ANEMIA, Diagnosis Active 2017-04-20 Me moria UNSPECIFIE 21:57:00 l D ANEMIA, Noel UNSPECIFIE D Active [facility] UNSPECIFIE Diagnosis Active 2018-04-19 Memoria D ATRIAL 16:22:00 l FIBRILLATI Pankaj n ON UNSPECIFIE D ATRIAL FIBRILLATI ON Active [facility] HEART Diagnosis Active 2019-01-17 Mem oria FAILURE, 09:46:00 l UNSPECIFIE HEART Jessica nn D FAILURE, UNSPECIFIE D Active [facility] BENIGN Diagnosis Active 2018-11-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:14:00 l 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 Active [facility] RECURRENT Diagnosis Active 2018-11-30 Memoria AND PERST 14:14:00 l HEMATURIA Noel W UNSP MOR RECURRENT AND PERST HEMATURIA W UNSP MOR Active [facility] Illness, Problem 2018-12-03 Mem oria unspecifie 22:16:39 l d Illness, Pankaj n unspecifie d 12/03/2018 [facility] Immune Problem 2018-10-16 Memor ia thrombocyt 13:38:32 l 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 10/16/2018 [facility] Hypertensi Problem 2018-10-16 M emoria ve heart 13:38:32 l and Reading chronic Hypertensi kidney ve heart disease and with heart chronic failure kidney and stage disease 1 through with heart stage 4 failure chronic and stage kidney 1 through disease, stage 4 or chronic unspecifie kidney d chronic disease, kidney or disease unspecifie d chronic kidney disease 10/16/2018 [facility] Paroxysmal Problem 2018-10-16 M emoria atrial 13:38:32 l fibrillati Pankaj n on Paroxysmal atrial fibrillati on 10/16/2018 [facility] Encounter Problem 2018-10-16 Me moria for 13:38:32 l immunizati Pankaj n on Encounter for immunizati on 10/16/2018 [facility] Metabolic Problem 2018-10-16 Me moria syndrome 13:38:32 l Noel Metabolic syndrome 10/16/2018 [facility] Morbid Problem 2018-10-16 Memor ia (severe) 13:38:32 l obesity Morbid Noel due to (severe) excess obesity calories due to excess calories 10/16/2018 [facility] Dilated Problem 2018-10-16 Kaz david cardiomyop 13:38:32 l athy Dilated Noel cardiomyop athy 9 [facility] 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 13:38:32 l heart Reading disease of Atheroscle [place] rotic coronary heart artery disease of without [place] angina coronary pectoris artery without angina pectoris 10/16/2018 [facility] Chronic Problem 2018-10-16 Kaz david kidney 13:38:32 l disease, Chronic Jessica nn stage 3 kidney (moderate) disease, stage 3 (moderate) 10/16/2018 [facility] Hyperlipid Problem 2018-10-16 M emoria emia, 13:38:32 l unspecifie Pankaj n d Hyperlipid emia, unspecifie d 10/16/2018 [facility] Bronchitis Problem 2018-10-16 M emoria , not 13:38:32 l specified Noel as acute Bronchitis or chronic , not specified as acute or chronic 10/16/2018 [facility] Unspecifie Problem 2018-10-16 M emoria d 13:38:32 l osteoarthr Pankaj n itis, Unspecifie unspecifie d d site osteoarthr itis, unspecifie d site 10/16/2018 [facility] Gout, Problem 2018-10-16 Memor ia unspecifie 13:38:32 l d Gout, Noel unspecifie d 10/16/2018 [facility] Presence Problem 2018-10-16 Mem oria of cardiac 13:38:32 l pacemaker Presence Her [place] of cardiac pacemaker 10/16/2018 [facility] Personal Problem 2018-10-16 Mem oria history of 13:38:32 l nicotine Personal Herm pinky dependence history of nicotine dependence 10/16/2018 [facility] 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 10/16/2018 [facility] Heart Problem 2018-10-16 Memor ia failure, 13:38:32 l unspecifie Heart Jessica nn d failure, unspecifie d 10/16/2018 [facility] Coronary Problem 2018-10-16 Mem oria angioplast 13:38:32 l y status Coronary Herm pinky angioplast y status 10/16/2018 [facility] Personal Problem 2018-10-16 Mem oria history of 13:38:32 l transient Personal Her [place] ischemic history of attack transient (TIA), and ischemic cerebral attack infarction (TIA), and without cerebral residual infarction deficits without residual deficits 10/16/2018 [facility] Anemia, Problem 2018-10-16 Kaz david unspecifie 13:38:32 l d Anemia, Noel unspecifie d 10/16/2018 [facility] Sleep Problem 2018-10-16 Memor ia apnea, 13:38:32 l unspecifie Sleep Jessica nn d apnea, unspecifie d 10/16/2018 [facility] Hypotensio Problem 2018-10-16 M emoria n, 13:38:32 l unspecifie Pankaj n d Hypotensio n, unspecifie d 10/16/2018 [facility] Personal Problem 2018-10-16 Mem oria history of 13:38:32 l other Personal Pankaj n venous history of thrombosis other and venous embolism thrombosis and embolism 10/16/2018 [facility] Old Problem 2018-10-16 Memor ia myocardial 13:38:32 l infarction Old Pankaj n myocardial infarction 10/16/2018 [facility] 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 13:38:32 l Noel Monoclonal gammopathy 10/16/2018 [facility] Chest pain Problem Inactiv 2012-07-23 Memoria e 09:02:15 l Chest Reading pain Inactive Problem 07/23/2012 [facility], [facility] [place] [place] Nausea Problem Inactiv 2012-07-23 Kaz david e 09:02:15 l Nausea Noel Inactive Problem 07/23/2012 [facility], [facility] [place],[facility] [place] Cough Problem Inactiv 2012-07-23 Kaz david e 09:02:15 l Cough Noel Inactive Problem 07/23/2012 [facility], [facility] [place],[facility] [place] Cerebrovas Problem Resolve 2018-12-03 Memoria cular d 22:16:39 l accident Noel (disorder) Cerebrovas cular accident (disorder) Resolved Problem 12/03/2018 [facility] [place],[facility] [place] Diabetes Problem Resolve 2018-12-03 Me moria mellitus d 22:16:39 l (disorder) Diabetes He rmann mellitus (disorder) Resolved Problem 12/03/2018 pt states he is not a diabeticPA TIENT STATES HE IS NOT A DIABETICbo rder line [facility] [place],[facility] [place] Pneumonia Problem Resolve 2018-12-03 M emoria (disorder) d 22:16:39 l Reading Pneumonia (disorder) Resolved Problem 12/03/2018 [facility] [place],[facility] [place] CHF - Problem Resolve 2012-07-23 Kaz david Congestive d 09:02:15 l heart CHF - Noel failure Congestive heart failure Resolved Problem 07/23/2012 [facility] [place] DVT - Deep Problem Resolve 2012-07-23 Memoria vein d 09:02:15 l thrombosis DVT - Jessica nn of lower Deep vein limb thrombosis of lower limb Resolved Problem 07/23/2012 [facility] [place] History of Past Illness Condition Condition Condition Status Onset Resolution Last Treating Co mments Source Name Details Category Date Date Treatment Clinician Date Sick sinus Problem 2017-052018-10-16 2018-10-16 Memoria syndrome 06-07 13:38:32 13:38:32 l Sick 05:28: Noel sinus 29 syndrome 8 10/16/2018 [facility] Discharge Problem 2015-05-31 2015-05-31 Memoria Diagnosis: 05-28 04:51:27 04:51:27 l Chronic 06:00: Reading renal Discharge 00 insufficie Diagnosis: ncy Chronic renal insufficie ncy 05/28/2015 05/31/2015 [place] Discharge Problem 2015-05-31 2015-05-31 Memoria Diagnosis: 05-28 04:51:27 04:51:27 l Acute 06:00: Noel urinary Discharge 00 tract Diagnosis: infection Acute urinary tract infection 05/28/2015 05/31/2015 [place] Discharge Problem 2015-02-05 2015-02-05 Memoria Diagnosis: 02-02 03:21:07 03:21:07 l Accidental 05:00: Pankaj n fall Discharge 00 Diagnosis: Accidental fall 02/02/2015 02/05/2015 [facility] Discharge Problem 2015-02-05 2015-02-05 Memoria Diagnosis: 02-02 03:21:07 03:21:07 l Contusion 05:00: [place] of hip Discharge 00 Diagnosis: Contusion of hip 02/02/2015 02/05/2015 [facility] Discharge Problem 2014-07-08 2014-07-08 Memoria Diagnosis: 07-06 20:37:37 20:37:37 l Hemoptysis 06:00: Pankaj n Discharge 00 Diagnosis: Hemoptysis 07/06/2014 07/08/2014 [place] Allergies, Adverse Reactions, Alerts Allergy Allergy Status [...] s to drug Sulfa Propensi Active 2016-05 [place] (Sulfona ty to 2-05 Methodi mide adverse 00:00: st Antibiot reaction 00 ics) s to drug sulfa sulfa Active Memoria drugs drugs l [place] Plavix Plavix Active Memoria l Noel Bactrim Bactrim Active Severe Memoria l Reading NKFA NKFA Active Memoria l [place] Social History Social Habit Start Date Stop Date Quantity Comments Source Social History 2018-03-25 2018-03-25 [facility] ermann 23:48:44 23:48:44 Alcohol intake 2017-04-23 2017-04-23 Current [facility] thodist 00:00:00 00:00:00 non-drinker of alcohol (finding) Sex Ass[birth year] [place] M ethodist 00:00:00 00:00:00 Smoking Status Start Date Stop Date Source Never smoker [place] Methodis t Medications Ordered Filled Start Stop [...] ia -24 Give with l 14:00: food. Reading (Same As: Coreg) Aspirin 81 No Notes: Do Me moria MG Enteric 724 not crush l Coated 14:00: or chew. Reading Tablet (Same As: Ecotrin) Acetaminoph No Notes: Do M emoria en 300 MG / 24 not exceed l Codeine 09:27: 4gm/day of Herm pinky Phosphate acetaminop 30 MG Oral hen. Tablet (Same as: [Tylenol Tylenol with with Codeine #3] Codeine # 3) Saline No Notes: Memoria Flush 0.9% 11-30 Same as: l 06:21: BD [place] Posiflush Sterile apixaban Yes 2.5 mg, Memori [...] Memoria 1-19 microgram, l 20:12: Route: IV, Noel 00 ONCE, Dosing Weight 137.727, kg, Start date: 03/28/18 14:12:00 [employer], Stop date: 03/28/18 14:12:00 [employer] Midazolam 2017-05 No 2 mg, Memoria 1-19 Route: IV, l 20:12: ONCE, Reading 00 Dosing Weight 137.727, kg, Start date: 03/28/18 14:12:00 [employer] INSPECTOR, Stop date: 03/28/18 14:12:00 [employer] INS[employer] metoprolol 2017-05 No Notes: Memor ia tartrate [...] Memoria 1-17 Nurse to l 23:00: ensure Noel 00 documentat ion of patient [...] Blood Glucose Results, Start date: 03/26/18 12:50:00 [employer], Duration: 30 day, Stop date: 04/25/18 12:49:00 [employer]OR Dextrose 2017-05 No 12.5 gm, Memor ia 50% Syringe -17 25 mL, l 18:50: Route: IVP, Drug Form: INJ, Dosing Weight 137.727, kg, PRN, PRN Blood Glucose Results, Start date: 03/26/18 12:50:00 [employer] INSPECTOR, Duration: 30 day, Stop date: 04/25/18 12:49:00 [employer] INS[employer]OR Senokot 2017-05 No Notes: Memoria 1-17 (Same as: l 15:00: Senokot) Reading 00 docusate 2017-05 No Notes: Memoria sodium 100 -17 (Same as: l mg oral 15:00: Colace) Reading capsule (Do Not Crush) Allopurinol 2017-05 No Notes: Kaz david -17 (Same as: l 15:00: Zyloprim) Amoxicillin 2017-05 No Notes: Kaz david / -17 With food. l Clavulanate 15:00: (Same as: H erm Augmentin 875) Prednisone 2017-05 No Route: PO, M emoria 1-17 Daily, l 15:00: Dosing Weight 137.727, kg, Start date: 03/26/18 9:00:00 [employer] INSPECTOR, Duration: 30 day, Stop date: 04/24/18 9:00:00 [employer]OR Losartan 2017-05 No Notes: Memoria 1-17 (Same as: l 15:00: Cozaar) Noel 00 Aspirin 81 2017-05 No Notes: Do Me moria MG Enteric -17 not crush l Coated 15:00: or chew. [place] Tablet 00 (Same As: Ecotrin) Lovenox 2017-05 [...] 137.727, kg, BID, Start date: 03/25/18 17:00:00 [employer] INSPECTOR, Duration: 30 day, Stop date: 04/24/18 9:00:00 [employer] INSPECTOR carvedilol 2017-05 No Notes: Memor ia 1-16 Give with l 23:00: food. (Same As: Coreg) 200 ACTUAT 2017-05 No 2 puff, Kaz david Albuterol 16 Route: l 0.09 22:51: INHALER, Noel MG/ACTUAT / 00 Drug Form: Ipratropium AERO/A, [place] Dosing 0.018 Weight MG/ACTUAT 137.727, Metered kg, BID, Dose PRN Inhaler Wheezing, [Combivent] Start date: 03/25/18 16:51:00 [employer] INSPECTOR, Duration: 30 day, Stop date: 04/24/18 16:50:00 [employer] INS[employer] gabapentin 2017-05 Yes 200 mg = 2 M emoria 100 MG Oral 1-16 cap, PO, l Capsule 22:32: BID, 0 Noel 00 Refill(s) Warfarin 2017-05 No See Memoria 1-16 Instructio l 22:32: ns, 1 mg PO EVERY OTHER DAY, 0 Refill(s) Augmentin 2017-05 No 875 mg, Memor ia 1-16 PO, Daily, l 22:32: # 20 tab, Noel 00 0 Refill(s) carvedilol 2017-05 Yes 25 [...] 16 Instructio l 22:32: ns, 4 TABS Reading 00 DAILY FOR 4 DAYS SINCE EN 3 TABS DAILY FOR 4 DAYS,2 TABS DAILY FOR 4 DAYS,THEN 1 TAB DAILY FOR 4 DAYS, 0 Refill(s) Aspirin 81 2017-05 Yes 81 mg = 1 Me moria MG Enteric 1-16 tab, PO, l Coated 22:32: Daily, # Noel Tablet 00 90 tab, 3 Refill(s) allopurinol [...] ia 2- (Same As: l 03:00: Flomax) Reading "Do Not Crush" Acetaminoph 2016-05 No Notes: Do M emoria en 300 MG / 2-01 not exceed l Codeine 02:05: 4gm/day of Herm pinky Phosphate acetaminop 30 MG Oral hen. Tablet (Same as: [Tylenol Tylenol with with Codeine #3] Codeine # 3) Furosemide 2016-05 No Notes: Memor ia 1-30 (Same as: l 23:00: Lasix) Reading May cause GI upset. Give with food or milk. SENOKOT-S 2016-05 No 1 tab, Memori a 06-08 Route: PO, l 23:00: Dosing Weight 145.909, kg, BID, Start date: 04/08/17 17:00:00 [employer], Duration: 30 day, Stop date: 05/08/17 9:00:00 [employer] carvedilol 2016-05 No Notes: Memor ia 1-30 Give with l 23:00: food. Noel (Same As: Coreg) Senokot 2016-05 No Notes: Memoria -30 (Same as: l 23:00: Senokot) Reading 00 200 ACTUAT 2016-05 No Notes: Memor ia Albuterol -30 Same as: l 0.09 22:48: Combivent Noel MG/ACTUAT / 00 Respimat Ipratropium WASTE: [place] Aerosol - 0.018 Return to MG/ACTUAT Pharmacy Metered Dose Inhaler [Combivent] Insulin 2016-05 No Notes: Memoria Lispro -30 Roll in l 22:41: palms of Reading 00 hands gently; Do not shake `vigorousl y. (Same as: Humalog ) "Single Patient Use Only " WASTE: F/P - Black; E - Municipal Trash Bin Stable for 28 days at room temperatur e. Expires in days from ____Date Glucagon 2016-05 No 1 mg, Memoria 30 Route: IM, l 22:41: Drug form: Reading PDR/INJ, PRN, Dosing Weight 145.909, kg, PRN Blood Glucose Results, Start date: 04/08/17 16:41:00 [employer], Duration: 30 day, Stop date: 05/08/17 16:40:00 [employer] Dextrose 2016-05 No 25 gm, 50 Kaz david 50% Syringe 1-30 mL, Route: l 22:41: IVP, Drug Form: INJ, Dosing Weight 145.909, kg, PRN, PRN Blood Glucose Results, Start date: 04/08/17 16:41:00 [employer], Duration: 30 day, Stop date: 05/08/17 16:40:00 [employer] carvedilol 2016-05 No 25 mg = 1 Me moria 25 mg oral 1-30 tab, PO, l tablet 20:52: BID, # 180 Jessica nn 00 tab, 0 Refill(s) Golytely 2016-05 No Notes: Memoria -13 (polyethyl l 19:56: irina glycol Reading 00 electrolyt e solution 4 Liter bottle) [...] -11 (Same as: l 18:04: K-Dur 20) Reading "Do Not Crush" With food and full glass of water tramadol 2016-05 No Notes: Not Mem oria hydrochlori -11 to exceed l de 50 MG 16:41: 400mg/day. Her [place] Oral Tablet 00 (Same As: Ultram) Tylenol 2016-05 No Notes: Do Memor ia -11 not exceed l 00:51: 4 gm/day. Reading 00 (Same as: Tylenol) Protonix 2016-05 No Notes: Memoria 1-10 Tablet l 17:44: should not Noel 00 be chewed or crushed. (Same as: Protonix) Enoxaparin 2016-05 No Notes: Memor ia 05-18 Nurse to l 19:30: ensure Reading 00 documentat ion of patient education per [...] Total Volume: 250, Start Date: 03/17/17 11:37:00 [employer], Duration: 30 day, Stop date: 04/16/17 11:36:00 [employer]PECTOR, Replace Every: 24 hr bivalirudin 2016-05 No 250 mg, Mem oria 50 MG/ML 08 250 mL, l Injectable 17:35: Rate: Pankaj n Solution 00 Start at 0.05 mg/kg/hr, Dosing Weight 147.909, kg, Route: IV, Total Volume: 250, Start Date: 03/17/17 11:35:00 [employer], Duration: 30 day, Stop date: 04/16/17 11:34:00 [employer], Replace Every: 24 hr Losartan 2016-05 No Notes: Memoria 1-08 (Same as: l 15:00: Cozaar) Noel 00 Furosemide 2016-05 No Notes: Memor ia 1-08 (Same as: l 15:00: Lasix) Reading May cause GI upset. Give with food or milk. carvedilol 2016-05 No Notes: Memor ia -08 Give with l 15:00: food. Reading (Same As: Coreg) Allopurinol 2016-05 No Notes: Kaz david -08 (Same as: l 15:00: Zyloprim) Reading 00 Potassium 2016-05 No Notes: Memori a Chloride 05-17 (Same as: l 14:17: K-Dur 20) "Do Not Crush" With food and full glass of water Lovenox 2016-05 No Notes: Memoria 05-17 Nurse to l 12:00: ensure Noel 00 documentat ion of patient education per anticoagul ation policy. (Same as: Lovenox) Senokot 2016-05 No Notes: Memoria 05-17 (Same as: l 03:00: Senokot) Reading 00 tamsulosin 2016-05 No Notes: Memor ia -08 (Same As: l 03:00: Flomax) "Do Not Crush" SENOKOT-S 2016-05 No 2 tab, Memori a 05-17 Route: PO, l 03:00: Dosing Noel 00 Weight 147.909, kg, Bedtime, Start date: 03/16/17 21:00:00 [employer], Duration: 30 day, Stop date: 04/14/17 21:00:00 [employer] atorvastati 2016-05 No Notes: Kaz david n 1-08 (Same as: l 03:00: Lipitor) Noel 00 200 ACTUAT 2016-05 No Notes: Memor ia Albuterol 08 Same as: l 0.09 00:45: Combivent Reading MG/ACTUAT / 00 Respimat Ipratropium WASTE: [place] Aerosol - 0.018 Return to MG/ACTUAT Pharmacy Metered Dose Inhaler [Combivent] Streptococc 2016-05 No Notes: Kaz david us 1-08 Shake well l pneumoniae 00:35: prior to Her [place] serotype 1 45 use (Same capsular as: antigen Prevnar diphtheria 13) [id number] protein conjugate vaccine / Streptococc us pneumoniae serotype 14 capsular antigen diphtheria [id number] protein conjugate vaccine / Streptococc us pneumoniae serotype 18C capsular antigen d carvedilol 2016-05 No 25 mg = 1 Me moria 25 mg oral 1-08 tab, PO, l tablet 00:28: BID, 0 Reading 00 Refill(s) Furosemide 2016-05 Yes 40 mg, PO, M emoria 1-08 BID, 0 l 00:28: Refill(s) Reading 00 tamsulosin 2016-05 Yes 0.4 mg, Kaz david -08 PO, l 00:28: Bedtime, 0 Reading 00 Refill(s) Losartan 2016-05 Yes 100 mg, Memori a -08 PO, Daily, l 00:28: 0 Refill(s) sodium 2016-05 No 1,000 mL, Memori a chloride 05-16 Rate: 75 l 0.9% 1000 23:43: ml/hr, Pankaj n ml INJ 00 Infuse 1,000 mL over: 13.3 hr, Route: IV, Dosing Weight 147.909 kg, Total Volume: 1,000, Start date: 03/16/17 17:43:00 [employer]OR, Duration: 30 day, Stop date: 04/15/17 17:42:00 [employer] INSPECTOR Lovenox 2016-05 No Notes: Memoria 05-16 Nurse to l 21:10: ensure Noel 00 documentat ion of patient education per [facility] ation policy. (Same as: Lovenox) carvedilol 2015-05 Yes 25 mg = 1 Me moria 25 mg oral 1-02 tab, PO, l tablet 19:40: Q12H, # Reading 00 180 tab, 0 Refill(s) AMIODarone 2015-05 Yes 200 mg = 1 M emoria 200 mg oral 1-02 tab, PO, l tablet 19:40: BID-Meals, Jessica nn 00 # 90 tab, 0 Refill(s) Amlodipine 2015-05 No Notes: Memor ia 05-11 (Same as: l 14:00: Norvasc) carvedilol 2015-05 No Notes: Memor ia 05-11 Give with l 02:00: food. Reading 00 (Same As: Coreg) Amiodarone 2015-05 No Notes: Memor ia 05-10 (Same as: l 22:00: Cordarone) Sodium 2015-05 No 250 mL, Memoria Chloride 05-10 Route: l 0.9% IV 20:01: IVPB, Reading 00 Start date: 03/10/16 15:01:00 CDT, Duration: 30 day, Stop date: 04/09/16 14:00:00 [employer] INSPECTOR, PRN Line Flush BD Normal 2015-05 No [...] Duration: 30 day, Stop date: 04/07/16 21:00:00 [employer] INSPECTOR atorvastati 2015-05 No Notes: Kaz david n 05-10 (Same as: l 02:00: Lipitor) Alprazolam 2015-05 No Notes: Memor ia 0.5 MG Oral 05-10 With food l Tablet 02:00: or milk Noel 00 (Same as: Xanax) Senokot 2015-05 No Notes: Memoria 05-10 (Same as: l 02:00: Senokot) Reading Colchicine 2015-05 No 0.6 mg, 1 Me moria 0.6 MG Oral 05-10 tab, l Tablet 00:58: Route: PO, Jessica nn 00 Drug form: TAB, BID, Dosing Weight 132.727, kg, PRN Shortness of breath, Start date: 03/09/16 19:58:00 CDT, Duration: 30 day, Stop date: 04/08/16 19:57:00 [employer] INSPECTOR 200 ACTUAT 2015-05 No Notes: Memor ia Albuterol 05-10 Same as: l 0.09 00:58: Combivent Noel MG/ACTUAT / 00 Respimat Ipratropium WASTE: [place] Aerosol - 0.018 Return to MG/ACTUAT Pharmacy Metered Dose Inhaler [Combivent] acetaminoph 2015-05 No Notes: Kaz david en-hydrocod 05-10 (Same as: l one 325 00:08: [place] Reading mg-5 mg 00 325/5) Do oral tablet [...] Memoria 9-10 Take with l 14:00: food. Reading 00 pregabalin Yes 200 mg = 1 [...] l / 23:01: Duoneb) Noel Ipratropium 00 [place] 0.167 MG/ML Inhalant Solution [DuoNeb] Nitroglycer No Notes: Kaz david in 0.4 MG 01-16 (Same l Sublingual 23:01: as:Nitroqu H ermann Tablet 00 ick, Nitrostat) "Do Not Crush" Sublingual tablet Enoxaparin No Notes: Memor ia 01-16 (Same as: l 23:00: Lovenox) Reading 00 Docusate No Notes: Memoria 01-16 (Same as: l 22:59: Colace) Noel 00 (Do Not Crush) Acetaminoph No Notes: Do M emoria en 01-16 not exceed l 22:59: 4 gm/day. Noel 00 (Same as: Tylenol) Ondansetron No Notes: Kaz david 01-16 (Same as: l 22:59: Zofran) Reading 00 MEDICATION WASTE Product Size: 4 mg Product Wasted: ___ mg Morphine No Notes: Memoria 01-16 (Same l 22:59: as:MORPhin Noel 00 e Sulfate) Acetaminoph No Notes: Kaz david en 325 MG / 01-16 (Same as: l Hydrocodone 22:59: [place] Jessica nn Bitartrate 00 325/5) Do 5 [...] PO, l Oral 22:38: BID, X 10 Reading Capsule , # 20 [Macrobid] cap, 0 [...] 2-13 (Same as: l Tablet 15:00: Lasix) Reading May cause GI upset. Give with food [...] Memoria 2-13 Same as l 07:35: Lyrica Reading 00 200 ACTUAT 2014-05 No Notes: Memor ia Albuterol 2-13 Same as: l 0.09 07:30: Combivent Reading MG/ACTUAT / 00 Respimat Ipratropium [place] 0.018 MG/ACTUAT Metered Dose Inhaler [Combivent] Alprazolam 2014-05 No Notes: Memor ia 2-13 With food l 07:30: or milk Reading (Same as: Xanax) nitroglycer 2014-05 No Notes: 1 Me moria in 2% 2-13 gram is l topical 07:12: approximat Herm pinky ointment 00 elio 1 inch of nitroglyce rin ointment (20 mg NTG per gram) (Same as:Nitro-B id) Furosemide 2014-05 Yes 40 mg = 1 Me moria 40 MG Oral 2-13 tab, PO, l Tablet 07:11: BID, 0 Noel Refill(s) SENOKOT-S 2014-05 Yes 2 tab, PO, [...] 06-22 (Same as: l Flush 07:09: BD Reading 00 Posiflush) acetaminoph 2014-05 No Notes: Do [...] / 02-02 (Same as: l Hydrocodone 21:30: [place] Jessica nn Bitartrate 00 325/5) Do 5 MG Oral not exceed Tablet 4gm/day of [[place] acetaminop 5/325] hen. Saline No Notes: Memoria Flush 0.9% 02-02 (Same as: l 21:18: BD Reading Posiflush) Barium No Notes: Memoria Sulfate 02-02 Same as l 21:18: Readi-Cat Noel 00 2 Morphine No Notes: Memoria 02-02 (Same l 21:18: as:MORPhin Reading 00 e Sulfate) Saline No Notes: Memoria Flush 0.9% 07-07 (Same as: l 02:05: BD Noel Posiflush) acetaminoph 2013-05 No Notes: Do M emoria en-codeine 06-02 not exceed l #3 14:55: 4gm/day of Noel 00 acetaminop hen. (Same as: Tylenol with Codeine # 3) Acetaminoph 2013-05 No Notes: Do M emoria en 06-02 not exceed l 14:55: 4 gm/day. Noel (Same as: Tylenol) gabapentin 2013-05 Yes 600 mg = 2 M emoria 300 MG Oral 05-30 cap, PO, l Capsule 19:56: TID, 0 Noel 00 Refill(s) Zinacef 2013-05 No Notes: Memoria 05-30 (Same As: l 18:00: Kefurox, Reading 00 Zinacef) Hydralazine 2013-05 No Notes: Kaz [...] Memoria 0-26 (Same As: l 17:43: Bumex) Noel 00 Neurontin 2013-05 No Notes: Memori a [...] Budesonide 0-25 inhalation l 0.16 13:15: , Reading MG/ACTUAT / 00 INHALATION formoterol , Q12H, [...] Memoria 0-24 (Same as: l 22:00: Lasix) Reading 00 May cause GI upset. Give with food or milk. Diovan 2013-05 No Notes: Memoria 0-24 Same as l 18:17: Diovan Reading 00 homatropine 2013-05 No Notes: Kaz david -hydrocodon 0-24 (Same as: l e 15:10: Hycodan, Noel 00 Hydromet) 120 ACTUAT 2013-05 No Notes: Memor ia Budesonide 0-24 (Same as: l 0.16 15:09: Symbicort) Reading MG/ACTUAT / 00 formoterol fumarate 0.0045 MG/ACTUAT [...] (Same as: l 15:05: Duoneb) Ipratropium 18 [place] 0.167 MG/ML Inhalant Solution [DuoNeb] Lasix 2013-05 [...] 0-21 Route: PO, l 02:00: Drug form: Reading TAB, Bedtime, Dosing Weight 126.3, kg, Start date: 02/26/14 21:00:00, Duration: 30 day, Stop date: 03/27/14 21:00:00 isosorbide 2013-05 No Notes: Memor ia dinitrate 0-21 (Same l extended 02:00: as:Isordil Her [place] release 00 ) Take on empty stomach/ full glass of water. Do not crush. Albuterol 2013-05 No Notes: Memori a 0.833 MG/ML 0-21 (Same as: l / 02:00: Duoneb) Reading Ipratropium 00 [place] 0.167 MG/ML Inhalant Solution [DuoNeb] Coreg 2013-05 No Notes: Memoria 0-21 Give with l 02:00: food. Reading 00 (Same As: Coreg) Acetylcyste 2013-05 No [...] l / 22:24: Duoneb) Noel Ipratropium 00 [place] 0.167 MG/ML Inhalant Solution [DuoNeb] Acetylcyste 2013-05 No 600 mg, 3 M emoria ine 200 0-20 mL, Route: l MG/ML 22:10: PO, Drug Reading Inhalant 00 form: Solution SOLN, BID, Dosing Weight 126.3, kg, Priority: NOW, Start date: 02/26/14 17:10:00, Duration: 1 day, Stop date: 02/27/14 17:00:00 Amiodarone 2013-05 No 200 mg, Kaz david 0-20 Route: PO, l 22:00: Drug form: Reading 00 TAB, BID, Dosing Weight 126.3, kg, [...] With food l 18:23: or milk Noel (Same as: Xanax) 200 ACTUAT 2013-05 No Notes: Memor ia Albuterol 0-20 Same as: l 0.09 18:23: Combivent Reading MG/ACTUAT / 00 Respimat Ipratropium [place] 0.018 MG/ACTUAT Metered Dose Inhaler [Combivent] Cordarone 2013-05 No Notes: Memori a 0-20 (Same as: l 18:10: Cordarone) Noel Coreg 2013-05 No Notes: Memoria 0-20 Give with l 18:09: food. Reading (Same As: Coreg) atorvastati 2013-05 Yes 40 [...] 0-20 Route: l 0.9% IV 07:42: IVPB, Reading 00 Start date: 02/26/14 2:42:00, Duration: 30 day, Stop date: 03/28/14 1:41:00, PRN Line Flush BD Normal 2013-05 No Notes: Memori a Saline 0-20 (Same as: l Flush 07:42: BD Reading 00 Posiflush) aspirin 2013-05 No Notes: Memoria 0-20 Take with l 07:34: food. Ondansetron 2013-05 No Notes: Kaz david 0-20 (Same as: l 07:34: Zofran) Reading Morphine 2013-05 No Notes: Memoria 0-20 (Same l 07:34: as:MORPhin Noel 00 e Sulfate) aspirin 2013-05 No Notes: Memoria 0-20 Take with l 05:28: food. Morphine 2013-05 No Notes: Memoria 0-20 (Same l 04:27: as:MORPhin Noel 00 e Sulfate) atorvastati Yes 40 mg = 2 M emoria n 20 mg 9-21 tab, PO, l oral tablet 13:00: Bedtime, # Reading 00 60 tab, 0 Refill(s) AMIODarone Yes [...] 9-20 mL, Route: l 13:07: IVPB, Drug Reading 00 form: INJ, ONCE, Dosing Weight 119.801, kg, Start date: 01/27/14 8:07:00, Duration: 2 hr, Stop date: 01/27/14 8:07:00 Lipitor No Notes: Memoria 01-27 (Same As: l 02:00: Lipitor) Reading Magnesium No 2 gm, 50 Kaz david Sulfate 9-20 mL, Route: l 00:17: IVPB, Drug Reading 00 form: INJ, ONCE, Dosing Weight 119.801, [...] 01-26 NOT break, l 15:41: chew or Reading 00 open capsules for administra tion. Aspirin [...] Memoria 01-26 Give with l 14:00: food. Reading 00 (Same As: Coreg) Nitroglycer No Notes: 1 Me moria in 0.02 01-26 gram is l MG/MG 13:00: approximat Pankaj n Topical 00 elio 1 inch Ointment of nitroglyce rin ointment (20 mg NTG per gram) (Same as:Nitro-B id) Protonix No Notes: Memoria 01-26 Tablet l 12:30: should not Reading 00 be chewed or crushed. (Same as: [...] / 01-26 (Same as: l Hydrocodone 11:52: [place] Jessica nn Bitartrate 00 325/5) Do 5 MG Oral not exceed Tablet 4gm/day of [[place] acetaminop 5/325] hen. Lasix No Notes: Memoria 01-26 (Same as: l 11:51: Lasix) Noel 00 Zofran No Notes: Memoria 01-26 (Same as: l 11:51: Zofran) Reading 00 Tylenol No Notes: Do Memor ia [...] MG Oral 01-26 Refill(s) l Capsule 10:22: Reading [Neurontin] 00 tramadol Yes PO, Q12H, Kaz david hydrochlori 01-26 Pain, 0 l de 50 MG 10:22: Refill(s) Herm pinky Oral Tablet 00 200 ACTUAT Yes INHALER, Mem oria Albuterol 01-26 SOB, 0 l 0.09 10:22: Refill(s) Noel MG/ACTUAT / 00 Ipratropium [place] 0.018 MG/ACTUAT Metered Dose Inhaler [Combivent] Digoxin No 125 Memoria 01-26 microgram, l 10:22: PO, Daily, 00 0 Refill(s) carvedilol No 25 mg = 1 Me moria 25 MG Oral 01-26 tab, PO, l Tablet 10:22: BID, # 180 Jessica nn [Coreg] 00 tab, 0 Refill(s) [place] Yes PO, PRN, Memoria 10/325 oral 3-13 [...] Morrison 400 ml/hr, l 18:00: Route: IV, Reading Drug Form: SOLN, ONCE, Start date: 07/11/12 12:00:00, Stop date: 07/11/12 12:00:00 Omnipaque Yes Arnaldo R 100 mL, M emoria 300 3-04 [place] 400 ml/hr, l 17:40: Route: IV, Reading Drug Form: SOLN, ONCE, Start date: 07/11/12 [...] 0.8 mL, l 06:00: m Catalan Route: Reading 00 SUB-Q, Drug form: INJ, [id number], Start date: 02/26/12 1:00:00, Duration: 30 day, [...] l sublingual 05:46: m Catalan Route: SL, Reading tablet 00 Drug form: TAB, Q5Min, PRN [...] Duration: 30 day, Stop date: 03/26/12 23:44:00 [place] Yes Steffi 1 tab, PO, Kaz david [...] or without foodTake with or without food [place] 5/325 No Steffi 1 tab, Me moria [...] Rate: 75 l 13:34: Francisco Javier ml/hr, Reading 00 Infuse over: 13.3 hr, Route: IV, [...] Lovy mL, Route: l 11:00: IV, Drug Reading 00 form: INJ, Q6H, Start date: 12/05/11 [...] mL, l 04:51: Francisco Javier Route: Noel 00 IVP, Drug form: INJ, Q5Min, PRN Pain Score 4-6, Start date: 12/04/11 23:51:00, Duration: 5 doses or times, Stop date: Limited # of times naloxone No Rhea 0.04 mg, Kaz david 12-04 Ana 0.1 mL, l 04:51: Francisco Javier Route: Noel 00 IVP, Drug form: INJ, Q2MIN, PRN [...] 12-04 Lexie 0.1 mL, l 04:51: Route: Reading 00 IVP, Drug form: INJ, Q5Min, PRN [...] - Lovy 0.1 mL, l 22:30: Route: Reading 00 SUB-Q, Drug form: INJ, ONCE, Start date: 12/03/11 17:30:00, Stop date: 12/03/11 17:30:00 Humulin R 2011-0 No Adan 7 unit, Mem oria 100 7-26 Lovy 0.07 mL, l units/mL 22:20: Route: Reading injectable 00 SUB-Q, solution Drug form: SOLN, [...] Lovy 0.04 mL, l units/mL 22:17: Route: Reading injectable 00 SUB-Q, solution Drug form: SOLN, Sliding Scale, PRN Blood Glucose Results, Start date: 12/03/11 17:17:00, Duration: 30 day, Stop date: 01/02/12 17:16:00 Humulin R 2011- No Adan 2 unit, Mem oria 100 - Lovy 0.02 mL, l units/mL 22:16: Route: Reading injectable 00 SUB-Q, solution Drug form: SOLN, Sliding Scale, PRN Blood Glucose Results, Start date: 12/03/11 17:16:00, Duration: 30 day, Stop date: 01/02/12 17:15:00 Humulin R No Adan 1 unit, Mem oria 100 12-02 Lovy 0.01 mL, l units/mL 22:15: Route: Reading injectable SUB-Q, solution Drug form: SOLN, Sliding [...] insulin No Adan 10 unit, Kaz david isophane-[employer]AND 12-02 Lovy 0.1 mL, l H 17:38: Route: Reading 00 SUB-Q, Drug form: INJ, ONCE, Start date: 12/03/11 12:38:00, Stop date: 12/03/11 12:38:00 methylPREDN No Adan 60 mg, 1.5 Memoria ISolone 7-26 Lovy mL, Route: l 00:30: IV, Drug Reading 00 form: INJ, Daily, Start date: 12/02/11 19:30:00, Duration: 2 doses or times, Stop date: 12/03/11 9:00:00 torsemide 2011-0 No Adan 10 mg, 1 Me moria 7-25 Lovy tab, l 14:00: Route: PO, Reading 00 Drug form: TAB, Daily, Start date: [...] 7-25 Lovy tab, l 14:00: Route: PO, Reading 00 Drug form: ECTAB, Daily, Start date: [...] 7-25 Lovy tab, l 02:00: Route: PO, Reading 00 Drug form: TAB, QPM, Start date: [...] Duration: 30 day, Stop date: 12/31/11 19:20:00 [place] 0 No Steffi 1 tab, Memoria 10/325 oral 7-25 Randee Route: PO, l tablet 00:20: Judith-Pr Drug Form: ashad TAB, Q6H, PRN as needed for pain, Start date: 12/01/11 19:20:00, Duration: 30 day, Stop date: 12/31/11 19:19:00 temazepam 2011-0 No Adan 15 mg, 1 Me moria 7-25 Lovy cap, l 00:15: Route: PO, Reading 00 Drug form: CAP, Bedtime, PRN Insomnia, Start date: 12/01/11 19:15:00, Duration: 30 day, Stop date: 12/31/11 19:14:00 atorvastati 2011-0 Yes Adan 10 mg, 1 Memoria n 10 mg 7-24 Lovy tab, PO, l oral tablet 22:26: Daily, 30 H ermann 28 tab, Substituti on Allowed, TAB [place] 0 No Steffi 1 tab, PO, Kaz [...] tab, PO, l tablet 18:12: BID, 60 Noel 14 tab, 1, 1, Substituti on Allowed, TAB [place] 5/325 Yes Yury R 1 tab, PO, Memoria oral tablet 4-20 Anderson Q4-6H, l 18:04: PRN, 30 Noel 08 tab, as needed for pain, Substituti on Allowed, Maintenanc e Flagyl 500 Yes Yury R 500 mg, 1 Memoria mg oral 4-20 Anderson tab, PO, l tablet 18:03: Q8H, 39 Reading 45 tab, Substituti on Allowed, TAB Cipro 500 Yes Yury R 500 mg, 1 Memoria mg oral 4-20 Anderson tab, PO, l tablet 18:03: Q12H, 26 Reading 19 tab, Substituti on Allowed, TAB Cipro No Yury R 400 mg, Mem oria 4-20 Anderson 200 mL, l 02:00: Route: Reading 00 IVPB, Drug form: INJ, Q12H, Start date: 08/27/11 21:00:00, Duration: 30 day, Stop date: 09/26/11 9:00:00 Flagyl No Yury R 500 mg, Me moria 4-19 Anderson 100 mL, l 21:00: Route: IVPB, Drug form: INJ, Q8H, Start date: 08/27/11 16:00:00, Duration: 30 day, Stop date: 09/26/11 8:00:00 Lyrica 2011-0 No Yury R 75 mg, [address] [facility] 08-[facility] Anderson cap, l 14:00: Route: PO, [...] Coreg 2011-0 No [facility] Anderson 1 tab, l 14:00: Route: PO, Drug form: TAB, BID, Start date: 08/27/11 9:00:00, Stop date: 09/25/11 17:00:00 Protonix No Arnaldo R 40 mg, [address] [facility] Morrison tab, l 14:00: Route: PO, Drug form: ECTAB, Daily, Start date: 08/27/11 9:00:00, Duration: 30 day, Stop date: 09/25/11 9:00:00 Visipaque 2011- Yes Juno 32,000 mg, M [facility] 08-26 Abdulaziz 100 mL, l 13:33: Cunningham Route: IVP, Drug form: INJ, ONCE, Start date: 08/27/11 8:33:00, Stop date: 08/27/11 8:33:00 sotalol 2011-0 No Yury R 80 mg, 1 Memoria 4-19 Anderson tab, l 02:40: Route: PO, Reading 00 Drug form: TAB, BID, Start date: [...] 4-19 Anderson cap, l 00:55: Route: PO, Reading 00 Drug form: CAP, Bedtime, PRN Sleep, Start date: 08/26/11 19:55:00, Duration: 30 day, Stop date: 09/25/11 19:54:00 [place] 5/325 2011- No Yury R 1 tab, Memoria oral tablet 4-19 Justin Route: PO, l 00:55: Drug Form: Reading 00 TAB, Q4H, PRN Pain, Start date: 08/26/11 19:55:00, Duration: 30 day, Stop date: 09/25/11 19:54:00 insulin 2011-0 No Yury R 4 unit, M emoria aspart 4-19 Anderson 0.04 mL, l 00:38: Route: Reading 00 SUB-Q, Drug form: SOLN, Bedtime, PRN [...] tab, PO, l tablet 22:12: BID, 180 Reading 43 tab, Substituti on Allowed, TAB omeprazole [...] Nien-Diane tab, l 15:00: Darian Route: PO, Reading 00 Drug form: TAB, Daily, Start date: [...] Duration: 30 day, Stop date: 08/04/11 17:00:00 Philpot 3-6-9 2011- No Oscar Philpot Mem oria 1200 mg 2-27 Nien-Diane 3-6-9 [...] Route: IV, l 10:41: Darian Drug form: Reading PDR/INJ, PRN, PRN Blood Glucose Results, Start [...] Nien-Diane 0.1 mL, l 10:41: Darian Route: Reading SUB-Q, Drug form: SOLN, Sliding Scale, PRN Blood Glucose Results, Start date: 07/06/11 4:41:00, Duration: 30 day, Stop date: 08/05/11 5:40:00 lactulose No Oscar 20 gm, 30 M emoria 07-06 Nien-Diane mL, Route: l 10:41: Darian PO, Drug Reading 00 form: SYRP, Daily, PRN Constipati on, [...] Anderson 1 tab, l 23:00: Route: PO, Reading 00 Drug form: TAB, BID, Start date: [...] l 14:00: Hughes SUB-Q, Drug form: INJ, [id number], Start date: 04/30/11 8:00:00, Duration: 30 day, Stop date: 05/29/11 20:00:00 Zofran 2010-05 No Kiritkumar 2 mg, 1 Me moria 2-21 A Morrison mL, Route: l 20:35: IVP, Drug form: INJ, Q8H, PRN Nausea, Start date: 04/29/11 14:35:00, Duration: 30 day, Stop date: 05/29/11 14:34:00 NovoLog 2010-05 No Yury R 5 unit, M emoria FlexPen 2-21 Anderson 0.05 mL, l 19:22: Route: Reading 00 SUB-Q, Drug form: SOLN, Sliding Scale, [...] 06-30 Justin tab, l 03:00: Route: PO, Reading Drug form: TAB, Bedtime, Start date: 04/28/11 21:00:00, Duration: 30 day, Stop date: 05/27/11 21:00:00 Lovenox 2010-05 No Yury R 80 mg, 0.8 Memoria 06-30 Justin mL, Route: l 02:00: SUB-Q, Noel Drug form: INJ, [id number], Start date: 04/28/11 20:00:00, Duration: 30 day, [...] A Morrison tab, l 15:00: Route: PO, Reading 00 Drug form: TAB, Daily, Start date: 04/28/11 9:00:00, Duration: 30 day, Stop date: 05/27/11 9:00:00 Prinivil 2010-05 No Kiritkumar 10 mg, 1 Memoria 2-20 A Morrison tab, l 15:00: Route: PO, Reading 00 Drug form: TAB, Q12H, Start date: 04/28/11 9:00:00, Duration: 30 day, Stop date: 05/27/11 21:00:00 Lasix 2010-05 No Kiritkumar 40 mg, 1 Me moria 2-20 A Morrison tab, l 15:00: Route: PO, Reading 00 Drug form: TAB, Daily, Start date: 04/28/11 9:00:00, Duration: 30 day, Stop date: 05/27/11 9:00:00 Xanax 2010-05 No Kiritkumar 0.5 mg, 1 M emoria 2-20 A Morrison tab, l 15:00: Route: PO, Reading Drug form: TAB, Daily, Start date: 04/28/11 9:00:00, Duration: 30 day, Stop date: 05/27/11 9:00:00 K-Dur 10 2010-05 No Kiritkumar 10 mEq, 1 Memoria 2-20 A Morrison tab, l 15:00: Route: PO, Reading Drug form: ERTAB, Daily, Start date: 04/28/11 9:00:00, Duration: 30 day, Stop date: 05/27/11 9:00:00 Neurontin 2010-05 No Kiritkumar 600 mg, 2 Memoria 2-20 A Morrison cap, l 15:00: Route: PO, Reading 00 Drug form: CAP, TID, Start date: 04/28/11 9:00:00, Duration: 30 day, Stop date: 05/27/11 17:00:00 morphine 2010-05 No Yury R 2 mg, 0.4 [facility] Sulfate 2-20 Anderson mL, Route: l 13:31: IV, Drug Reading 00 form: INJ, ONCE, Start date: 04/28/11 7:31:00, Stop date: 04/28/11 7:31:00 morphine 2010-05 No Kiritkumar 2 mg, 0.4 [facility] Sulfate 2-20 A Morrison mL, Route: l 10:44: IV, Drug Reading 00 form: INJ, ONCE, Start date: 04/28/11 [...] A Morrison mL, Route: l 07:00: SUB-Q, Reading Drug form: INJ, [id number], Start date: 04/28/11 1:00:00, Duration: 30 day, [...] Anderson Route: IV, l 06:35: Drug form: Noel 00 PDR/INJ, PRN, PRN [...] 2-20 Anderson 0.1 mL, l 06:35: Route: Reading 00 SUB-Q, Drug form: SOLN, Sliding Scale, PRN Blood Glucose Results, Start date: 04/28/11 0:35:00, Duration: 30 day, Stop date: 05/28/11 0:34:00 Avelox 400 2010-05 No Annette 400 mg, 1 Me moria mg oral 0-11 [place] tab, l tablet 15:36: [place] Route: PO, Her greenwood 00 Drug form: TAB, [id number], Priority: NOW, Start date: 02/17/11 10:36:00, Duration: 30 day, Stop date: 03/18/11 10:36:00 Avelox 400 2010-05 Yes Annette 400 mg, 1 Me moria mg oral 0-11 [place] tab, PO, l tablet 15:31: [place] Daily, 7 Jessica nn 58 tab, Substituti on Allowed, TAB Protonix 2010-05 No Annette 40 mg, 1 Memor ia 0-11 [place] tab, l 12:30: [place] Route: PO, Jessica nn 00 Drug form: ECTAB, Before Breakfast, Start date: 02/17/11 7:30:00, Duration: 30 day, Stop date: 03/18/11 7:30:00 azithromyci 2010-05 No Annette 500 mg, 2 M emoria n 500 mg 0-11 [place] tab, l oral tablet 04:00: [place] Route: PO, Noel 00 Drug form: TAB, [...] Memoria 0-10 [place] mL, Route: l 16:43: [place] IVP, Drug Pankaj n 00 form: INJ, Q4H, PRN Elevated BP, Start date: 02/16/11 11:43:00, Duration: 30 day, Stop date: 03/18/11 11:42:00 Lopressor 2010-05 No Annette 5 mg, 5 Memor ia 0-10 [place] mL, Route: l 16:43: [place] IVP, Drug Pankaj n 00 form: INJ, Q6H, PRN Elevated BP, Start date: 02/16/11 11:43:00, Duration: 30 day, Stop date: 03/18/11 11:42:00 Visipaque 2010-05 No Annette 48,000 mg, Me moria 0-10 [place] 150 mL, l 14:05: [place] Route: IV, Jessica nn 00 Drug form: INJ, ONCE, Start date: 02/16/11 9:05:00, Stop date: 02/16/11 9:05:00 potassium 2010-05 No Annette 10 mEq, 1 Mem oria chloride 0-10 [place] tab, l 14:00: [place] Route: PO, Jessica nn 00 Drug form: ERTAB, Daily, Start date: 02/16/11 9:00:00, Duration: 30 day, Stop date: 03/17/11 9:00:00 glyBURIDE 2010-05 No Annette 5 mg, 1 Memor ia 0-10 [place] tab, l 14:00: [place] Route: PO, Jessica nn 00 Drug form: TAB, Daily, Start date: 02/16/11 9:00:00, Duration: 30 day, Stop date: 03/17/11 9:00:00 Lasix 40 mg 2010-05 No Annette 40 mg, 2 Me moria oral tablet 0-10 [place] tab, l 14:00: [place] Route: PO, Jessica nn 00 Drug form: TAB, Daily, Start date: 02/16/11 9:00:00, Duration: 30 day, Stop date: 03/17/11 9:00:00 morphine 2010-05 No Crystal 2 mg, 0.4 M emoria Sulfate 0-10 Kristen mL, Route: l 04:21: [place] IVP, Drug Reading 00 form: INJ, Q3H, PRN Pain, Start date: 02/15/11 23:21:00, Duration: 30 day, Stop date: 03/17/11 23:20:00 predniSONE 2010-05 No Annette 50 mg, Memor ia 0-09 [place] Route: PO, l 22:00: [place] Drug form: Jessica nn 00 TAB, BID, Start date: 02/15/11 17:00:00, Duration: 30 day, Stop date: 03/17/11 9:00:00 gabapentin 2010-05 No Annette 600 mg, 2 Me moria 600 mg oral 0-09 [place] cap, l tablet 18:00: [place] Route: PO, Her greenwood 00 Drug form: CAP, TID, Start date: 02/15/11 13:00:00, Duration: 30 day, Stop date: 03/17/11 9:00:00 aspirin 81 2010-05 Yes 1 tab, PO, M emoria mg tablet, 0-09 Daily, 0 l enteric 16:58: tab, Noel coated 50 Substituti on Allowed, ECTAB glyBURIDE 5 2010-05 Yes Annette 1 tab, PO, Memoria mg oral 0-09 [place] Daily, 30 l tablet 16:58: [place] tab Reading 30 Substituti on Allowed, TAB doxycycline 2010-05 No 1 cap, PO, Memoria hyclate 100 0-09 BID, cap, l mg oral 16:58: Substituti Herm pinky capsule 11 on Allowed predniSONE 2010-05 Yes Annette 1 tab, PO, M emoria 50 mg oral 0-09 [place] BID, tab, l tablet 16:57: [place] Substituti Her greenwood 48 on Allowed, TAB gabapentin 2010-05 Yes Annette 1 tab, PO, M emoria 600 mg oral 0-09 [place] TID, 270 l tablet 16:57: [place] tab Noel 13 Substituti on Allowed Klor-Con 2010-05 Yes Annette 1 tab, PO, Mem oria M10 oral 0-09 [place] Daily, l tablet, 16:56: [place] tab Noel extended 57 Substituti release on Allowed, ERTAB lisinopril 2010-05 Yes 1 tab, PO, M emoria 10 mg oral 0-09 BID, 30 l tablet 16:56: tab Reading 17 Substituti on Allowed, TAB Lasix 40 mg 2010-05 Yes Annette 1 tab, PO, Memoria oral tablet 0-09 [place] Daily, 30 l 16:56: [place] tab Noel 00 Substituti on Allowed, TAB Coreg 12.5 2010-05 Yes 1 tab, PO, M emoria mg oral 0-09 BID, 60 l tablet 16:55: tab Reading 44 Substituti on Allowed, TAB Zofran ODT [...] Route: l 16:00: [place] PRITCHARDPB, Noel 00 [id number], Start date: 02/15/11 11:00:00, Duration: 30 day, Stop date: 03/16/11 23:00:00 pantoprazol 2010-05 No Crystal 40 mg, M emoria e 0-09 Kristen Route: l 14:00: [place] IVP, Drug Reading 00 form: INJ, Daily, Start date: 02/15/11 9:00:00, Duration: 30 day, Stop date: 03/16/11 9:00:00 Saline 2010-05 No Crystal 5 ml, Memoria Flush 0.9% 0- Rkisten Route: l 14:00: [place] IVP, Drug Reading 00 Form: INJ, Q12H, Start date: 02/15/11 [...] 0- Morrison tab, l 14:00: Route: PO, Reading 00 Drug form: TAB, Daily, Start date: [...] Mem oria 0 [place] cap, l 04:40: [place] Route: PO, Jessica nn 00 Drug form: CAP, Q8H, Start date: 02/14/11 23:40:00, Duration: 30 day, Stop date: 03/16/11 16:00:00 ceftriaxone 2010-05 No Arnaldo R 1 gm, M emoria 0 [place] Route: l 04:00: IVPB, Noel 00 [id number], Start date: 02/14/11 23:00:00, Duration: 30 day, Stop date: 03/15/11 23:00:00 azithromyci 2010-05 No Crystal 500 mg, Memoria n 0 Kristen Route: l 04:00: [place] IVPB, Noel 00 [id number], Start date: 02/14/11 23:00:00, Duration: 30 day, [...] ml, Route: l 03:08: [place] IVP, Drug Reading 00 Form: INJ, PRN, PRN Blood Glucose [...] 0-09 Forbes tab, l 01:28: Route: PO, Reading 00 Drug form: TAB, ONCE, Priority: STAT, [...] Forbes mL, Route: l 00:30: IVP, Drug Reading 00 form: INJ, ONCE, Priority: STAT, Start date: 02/14/11 19:30:00, Stop date: 02/14/11 19:30:00 Saline 2010- No Abdon G 5 ml, Memoria Flush 0.9% 0-08 [place] Route: l 23:21: IVP, Drug Reading 00 Form: INJ, PRN, PRN Line Flush, Start date: 02/14/11 18:21:00, Duration: 30 day, Stop date: 03/16/11 17:20:00 Vital Signs Vital Name Observation Time Observation Value Comments Source Respitory Rate 2018-12-01 20:24:00 Memori al [place] Systolic (mm Hg) 2018-12-01 20:24:00 Kaz rial Noel Diastolic (mm Hg) 2018-12-01 20:24:00 Mem o[facility] Reading Temperature Oral (F) 2018-12-01 20:24:00 98.5 F [facility] Noel Heart Rate 2018-12-01 20:24:00 [facility] Noel Systolic (mm Hg) 2018-12-01 16:14:00 Kaz rial Noel Diastolic (mm Hg) 2018-12-01 16:14:00 Mem orial Reading Heart Rate 2018-12-01 16:14:00 [facility] Noel Respitory Rate 2018-12-01 16:14:00 [facility] Temperature Oral (F) 2018-12-01 16:14:00 98.1 F [facility] Noel Systolic (mm Hg) 2018-12-01 13:27:00 Kaz rial Reading Diastolic (mm Hg) 2018-12-01 13:27:00 Mem o[facility] Reading Respitory Rate 2018-12-01 12:23:00 [facility] al Noel Heart Rate 2018-12-01 12:23:00 [facility] Height 2018-12-01 09:32:00 193.04 cm [facility] BMI Calculated 2018-11-30 04:11:00 [facility] Weight 2018-11-30 04:11:00 [facility] Height 2018-11-30 04:11:00 193.04 cm [facility] Noel Systolic (mm Hg) 2018-03-29 17:39:00 Kaz rial Noel Diastolic (mm Hg) 2018-03-29 17:39:00 Mem o[facility] Noel Respitory Rate 2018-03-29 17:39:00 [facility] [place] Heart Rate 2018-03-29 17:39:00 [facility] Noel Temperature Oral (F) 2018-03-29 17:39:00 97.5 F [facility] Heart Rate 2018-03-29 13:52:00 [facility] Noel Respitory Rate 2018-03-29 13:52:00 [facility] [place] Systolic (mm Hg) 2018-03-29 13:52:00 Kaz rial Reading Diastolic (mm Hg) 2018-03-29 13:52:00 Mem o[facility] Reading Temperature Oral (F) 2018-03-29 13:52:00 98.4 F [facility] No[facility] Weight 2018-03-29 12:08:00 [facility] Systolic (mm Hg) 2018-03-29 09:30:00 Kaz rial Noel Diastolic (mm Hg) 2018-03-29 09:30:00 [facility] o[facility] Reading Heart Rate 2018-03-29 09:30:00 [facility] Noel Temperature Oral (F) 2018-03-29 09:30:00 98.3 F [facility] Respitory Rate 2018-03-29 06:00:00 [facility] BMI Calculated 2018-03-25 21:42:00 [facility] Weight 2018-03-25 21:42:00 [facility] Height 2018-03-25 21:42:00 193.04 cm [facility] [place] Temperature Oral (F) 2017-04-11 13:01:00 97.9 F [facility] Noel Systolic (mm Hg) 2017-04-11 13:01:00 Kaz rial Reading Diastolic (mm Hg) 2017-04-11 13:01:00 Mem o[facility] Noel Respitory Rate 2017-04-11 13:01:00 [facility] Heart Rate 2017-04-11 13:01:00 [facility] Temperature Oral (F) 2017-04-11 10:00:00 98.2 F [facility] Heart Rate 2017-04-11 10:00:00 [facility] Noel Systolic (mm Hg) 2017-04-11 10:00:00 Kaz rial Reading Diastolic (mm Hg) 2017-04-11 10:00:00 Mem o[facility] Noel Respitory Rate 2017-04-11 10:00:00 [facility] al Noel Systolic (mm Hg) 2017-04-11 06:00:00 Kaz rial Reading Diastolic (mm Hg) 2017-04-11 06:00:00 [facility] Heart Rate 2017-04-11 06:00:00 [facility] Noel Respitory Rate 2017-04-11 06:00:00 [facility] Noel Temperature Oral (F) 2017-04-11 06:00:00 98.2 F [facility] Height 2017-04-08 21:30:00 193.04 cm [facility] Weight 2017-04-08 21:30:00 [facility] BMI Calculated 2017-04-08 21:30:00 [facility] Reading Temperature Oral (F) 2017-03-23 22:16:00 98.4 F [facility] Heart Rate 2017-03-23 22:16:00 [facility] Respitory Rate 2017-03-23 22:16:00 [facility] Systolic (mm Hg) 2017-03-23 22:16:00 Kaz rial Noel Diastolic (mm Hg) 2017-03-23 22:16:00 [facility] Reading Systolic (mm Hg) 2017-03-23 17:38:00 Kaz rial Noel Diastolic (mm Hg) 2017-03-23 17:38:00 [facility] o[facility] Noel Temperature Oral (F) 2017-03-23 17:38:00 98.2 F [facility] Heart Rate 2017-03-23 17:38:00 [facility] Respitory Rate 2017-03-23 17:38:00 [facility] Heart Rate 2017-03-23 13:43:00 [facility] Noel Systolic (mm Hg) 2017-03-23 13:43:00 Kaz rial Reading Diastolic (mm Hg) 2017-03-23 13:43:00 [facility] o[facility] Reading Respitory Rate 2017-03-23 13:43:00 [facility]ori al Noel Temperature Oral (F) 2017-03-23 13:43:00 98.4 F [facility] BMI Calculated 2017-03-16 22:19:00 [facility] Noel Weight 2017-03-16 22:19:00 [facility] Height 2017-03-16 22:19:00 193.04 cm [facility] Weight 2017-03-16 18:16:00 [facility] BMI Calculated 2017-03-16 18:16:00 [facility] [place] Height 2017-03-16 18:16:00 193.04 cm [facility] Noel Temperature Oral (F) 2016-03-11 18:06:00 97.9 F [facility] Systolic (mm Hg) 2016-03-11 18:06:00 Kaz rial Reading Diastolic (mm Hg) 2016-03-11 18:06:00 Mem o[facility] Noel Heart Rate 2016-03-11 18:06:00 [facility] No[facility] Respitory Rate 2016-03-11 18:06:00 [facility] al Noel Systolic (mm Hg) 2016-03-11 12:58:00 Kaz rial Noel Diastolic (mm Hg) 2016-03-11 12:58:00 Mem o[facility] Noel Respitory Rate 2016-03-11 12:58:00 [facility] al Noel Temperature Oral (F) 2016-03-11 12:58:00 98.1 F [facility] Heart Rate 2016-03-11 12:58:00 [facility] Heart Rate 2016-03-11 09:18:00 [facility] Temperature Oral (F) 2016-03-11 09:18:00 97.8 F [facility] Respitory Rate 2016-03-11 09:18:00 Memori al Noel Systolic (mm Hg) 2016-03-11 09:18:00 Kaz rial Noel Diastolic (mm Hg) 2016-03-11 09:18:00 Mem o[facility] Reading BMI Calculated 2016-03-09 19:03:00 [facility] Noel Weight 2016-03-09 19:03:00 [facility] Height 2016-03-09 19:03:00 193.04 cm [facility] Respitory Rate 2016-01-18 13:00:00 [facility] Noel Heart Rate 2016-01-18 13:00:00 [facility] Temperature Oral (F) 2016-01-18 13:00:00 98.7 F [facility] Systolic (mm Hg) 2016-01-18 09:06:00 Kaz rial Noel Diastolic (mm Hg) 2016-01-18 09:06:00 Mem o[facility] Reading Temperature Oral (F) 2016-01-18 09:06:00 98.2 F [facility] Heart Rate 2016-01-18 09:06:00 [facility] Respitory Rate 2016-01-18 09:06:00 Memori al Noel Systolic (mm Hg) 2016-01-18 03:54:00 Kaz rial Noel Diastolic (mm Hg) 2016-01-18 03:54:00 Mem o[facility] Noel Temperature Oral (F) 2016-01-18 03:54:00 98.1 F [facility] Heart Rate 2016-01-18 03:54:00 [facility] Respitory Rate 2016-01-18 03:54:00 [facility] Noel Weight 2016-01-18 01:05:00 [facility] BMI Calculated 2016-01-18 01:05:00 [facility] [place] Height 2016-01-18 01:05:00 193.04 cm [facility] Diastolic (mm Hg) 2016-01-18 00:55:00 [facility] o[facility] Noel Systolic (mm Hg) 2016-01-18 00:55:00 Kaz rial Noel Weight 2016-01-17 21:23:00 [facility] Heart Rate 2015-05-28 23:23:00 [facility] Temperature Oral (F) 2015-05-28 23:23:00 97.9 F [facility] Respitory Rate 2015-05-28 23:23:00 [facility] [place] Systolic (mm Hg) 2015-05-28 23:23:00 Kaz rial Noel Diastolic (mm Hg) 2015-05-28 23:23:00 [facility] o[facility] Reading Weight 2015-05-28 21:05:00 [facility] Onel Temperature Oral (F) 2015-05-28 21:05:00 97.8 F [facility] Respitory Rate 2015-05-28 21:05:00 [facility] Heart Rate 2015-05-28 21:05:00 [facility] Noel Systolic (mm Hg) 2015-05-28 21:05:00 Kaz rial Noel Diastolic (mm Hg) 2015-05-28 21:05:00 [facility] o[facility] [place] Systolic (mm Hg) 2015-04-24 17:04:00 Kaz rial Noel Diastolic (mm Hg) 2015-04-24 17:04:00 [facility] o[facility] Noel Respitory Rate 2015-04-24 17:04:00 [facility] al Reading Temperature Oral (F) 2015-04-24 17:04:00 97.7 F [facility] Heart Rate 2015-04-24 17:04:00 [facility] Systolic (mm Hg) 2015-04-24 14:20:00 Kaz rial Reading Diastolic (mm Hg) 2015-04-24 14:20:00 Mem o[facility] Noel Respitory Rate 2015-04-24 14:20:00 [facility] Reading Temperature Oral (F) 2015-04-24 14:20:00 97.2 F [facility] Heart Rate 2015-04-24 14:20:00 [facility] Systolic (mm Hg) 2015-04-24 12:24:00 Kaz rial Reading Diastolic (mm Hg) 2015-04-24 12:24:00 [facility] Reading Respitory Rate 2015-04-24 12:24:00 [facility] Noel Heart Rate 2015-04-24 12:24:00 [facility] No[facility] Temperature Oral (F) 2015-04-24 00:30:00 97.7 F [facility] Weight 2015-04-21 07:11:00 [facility] Height 2015-04-21 07:11:00 187.96 cm [facility] BMI Calculated 2015-04-21 07:11:00 [facility] Temperature Oral (F) 2015-02-03 00:13:00 98 F [facility] Heart Rate 2015-02-03 00:13:00 [facility] Systolic (mm Hg) 2015-02-03 00:13:00 Kaz rial Noel Diastolic (mm Hg) 2015-02-03 00:13:00 [facility] Reading Respitory Rate 2015-02-03 00:13:00 [facility] Noel Height 2015-02-02 20:33:00 172.72 cm [facility] Weight 2015-02-02 20:33:00 [facility] BMI Calculated 2015-02-02 20:33:00 [facility] Respitory Rate 2015-02-02 20:33:00 [facility] Noel Temperature Oral (F) 2015-02-02 20:33:00 98.2 F [facility] Heart Rate 2015-02-02 20:33:00 [facility] No[facility] Systolic (mm Hg) 2015-02-02 20:33:00 Kaz rial Reading Diastolic (mm Hg) 2015-02-02 20:33:00 [facility] o[facility] Noel Heart Rate 2014-07-07 04:20:00 [facility] Respitory Rate 2014-07-07 04:20:00 [facility] Noel Temperature Oral (F) 2014-07-07 04:20:00 98.3 F [facility] Heart Rate 2014-07-07 03:38:00 [facility] Respitory Rate 2014-07-07 03:38:00 [facility] al Reading Systolic (mm Hg) 2014-07-07 03:38:00 Kaz rial Noel Diastolic (mm Hg) 2014-07-07 03:38:00 [facility] o[facility] Noel Systolic (mm Hg) 2014-07-07 02:16:00 Kaz rial Noel Diastolic (mm Hg) 2014-07-07 02:16:00 [facility] Respitory Rate 2014-07-07 02:16:00 [facility] Noel Heart Rate 2014-07-07 02:16:00 [facility] Systolic (mm Hg) 2014-07-07 00:30:00 Kaz rial Noel Diastolic (mm Hg) 2014-07-07 00:30:00 [facility] o[facility] Reading Temperature Oral (F) 2014-07-07 00:30:00 98.1 F [facility] Height 2014-07-07 00:30:00 193.04 cm [facility] BMI Calculated 2014-07-07 00:30:00 [facility] Weight 2014-07-07 00:30:00 [facility] Diastolic (mm Hg) 2014-04-02 17:45:00 Mem o[facility] Noel Systolic (mm Hg) 2014-04-02 17:45:00 Kaz rial Reading Respitory Rate 2014-04-02 17:45:00 [facility] Noel Diastolic (mm Hg) 2014-04-02 17:30:00 [facility] o[facility] Noel Respitory Rate 2014-04-02 17:30:00 [facility] al Noel Systolic (mm Hg) 2014-04-02 17:30:00 Kaz rial Reading Diastolic (mm Hg) 2014-04-02 17:15:00 [facility] Systolic (mm Hg) 2014-04-02 17:15:00 Kaz rial Noel Respitory Rate 2014-04-02 17:15:00 [facility] Noel Temperature Oral (F) 2014-04-02 15:15:00 97.9 F [facility] Temperature Oral (F) 2014-04-02 13:00:00 97.7 F [facility] Height 2014-03-30 16:58:00 193.04 cm [facility] BMI Calculated 2014-03-30 16:58:00 [facility] Noel Weight 2014-03-30 16:58:00 [facility] No[facility] Temperature Oral (F) 2014-03-30 16:58:00 98.2 F [facility] Heart Rate 2014-03-30 16:58:00 [facility] Respitory Rate 2014-03-06 00:15:00 [facility] Noel Heart Rate 2014-03-06 00:15:00 [facility] Temperature Oral (F) 2014-03-06 00:15:00 98.1 F [facility] Systolic (mm Hg) 2014-03-06 00:15:00 Kaz rial Noel Diastolic (mm Hg) 2014-03-06 00:15:00 [facility] o[facility] Reading Systolic (mm Hg) 2014-03-05 20:12:00 Kaz rial Reading Temperature Oral (F) 2014-03-05 20:12:00 98.1 F [facility] Heart Rate 2014-03-05 20:12:00 [facility] Respitory Rate 2014-03-05 20:12:00 [facility] al Noel Diastolic (mm Hg) 2014-03-05 20:12:00 Mem o[facility] Noel Respitory Rate 2014-03-05 16:21:00 [facility] [place] Diastolic (mm Hg) 2014-03-05 16:21:00 Mem o[facility] Noel Systolic (mm Hg) 2014-03-05 16:21:00 Kaz rial Reading Heart Rate 2014-03-05 16:21:00 [facility] Temperature Oral (F) 2014-03-05 16:21:00 98.1 F [facility] Weight 2014-02-27 10:20:00 [facility] Weight 2014-02-26 07:14:00 [facility] BMI Calculated 2014-02-26 07:14:00 [facility] Noel Height 2014-02-26 07:14:00 193.04 cm [facility] Height 2014-02-25 23:21:00 193.04 cm [facility] Weight 2014-02-25 23:21:00 [facility] BMI Calculated 2014-02-25 23:21:00 [facility] Reading Temperature Oral (F) 2014-01-28 17:04:00 99 F [facility] Heart Rate 2014-01-28 17:04:00 [facility] Respitory Rate 2014-01-28 17:04:00 [facility] [place] Diastolic (mm Hg) 2014-01-28 17:04:00 Mem o[facility] Noel Systolic (mm Hg) 2014-01-28 17:04:00 Kaz rial Noel Temperature Oral (F) 2014-01-28 13:02:00 98.8 F [facility] Heart Rate 2014-01-28 13:02:00 [facility] Respitory Rate 2014-01-28 13:02:00 [facility] Systolic (mm Hg) 2014-01-28 13:02:00 Kaz rial Reading Diastolic (mm Hg) 2014-01-28 13:02:00 [facility] Reading Weight 2014-01-28 10:00:00 [facility] Systolic (mm Hg) 2014-01-28 09:00:00 Kaz rial Noel Diastolic (mm Hg) 2014-01-28 09:00:00 [facility] Noel Temperature Oral (F) 2014-01-28 09:00:00 98.5 F [facility] Heart Rate 2014-01-28 09:00:00 [facility] Respitory Rate 2014-01-28 09:00:00 [facility] BMI Calculated 2014-01-26 09:56:00 [facility] Height 2014-01-26 09:56:00 193.04 cm [facility] Weight 2014-01-26 09:56:00 [facility] Height 2012-07-20 20:49:00 193.04 cm [facility] Weight 2012-07-20 20:49:00 [facility] Systolic (mm Hg) 2012-02-28 02:30:00 Kaz rial Noel Heart Rate 2012-02-28 02:30:00 [facility] Respitory Rate 2012-02-28 02:30:00 [facility] Noel Diastolic (mm Hg) 2012-02-28 02:30:00 [facility] Noel Temperature Oral (F) 2012-02-28 02:30:00 98.7 F [facility] Diastolic (mm Hg) 2012-02-27 21:00:00 [facility] Respitory Rate 2012-02-27 21:00:00 [facility] Noel Systolic (mm Hg) 2012-02-27 21:00:00 Kaz rial Reading Temperature Oral (F) 2012-02-27 21:00:00 98.3 F [facility] Heart Rate 2012-02-27 21:00:00 [facility] Diastolic (mm Hg) 2012-02-27 17:00:00 [facility] Systolic (mm Hg) 2012-02-27 17:00:00 Kaz rial Noel Respitory Rate 2012-02-27 17:00:00 [facility] Noel Temperature Oral (F) 2012-02-27 17:00:00 97.5 F [facility] Heart Rate 2012-02-27 17:00:00 [facility] Height 2012-02-26 05:58:00 193.04 cm [facility] Weight 2012-02-26 05:58:00 [facility] Weight 2012-02-26 05:13:00 [facility] Height 2012-02-26 05:13:00 193.04 cm [facility] Respitory Rate 2011-12-08 16:20:00 [facility] Diastolic (mm Hg) 2011-12-08 16:20:00 [facility] Systolic (mm Hg) 2011-12-08 16:20:00 Kaz [facility] Reading Temperature Oral (F) 2011-12-08 16:20:00 98.9 F [facility] Heart Rate 2011-12-08 16:20:00 [facility] Temperature Oral (F) 2011-12-08 13:00:00 99.2 F [facility] Heart Rate 2011-12-08 13:00:00 [facility] Systolic (mm Hg) 2011-12-08 13:00:00 Kaz [facility] Reading Respitory Rate 2011-12-08 13:00:00 [facility] Noel Diastolic (mm Hg) 2011-12-08 13:00:00 [facility] Noel Diastolic (mm Hg) 2011-12-08 10:13:00 [facility] Noel Systolic (mm Hg) 2011-12-08 10:13:00 Kaz [facility] Reading Respitory Rate 2011-12-08 10:13:00 [facility] Heart Rate 2011-12-08 10:13:00 [facility] Temperature Oral (F) 2011-12-08 10:13:00 97.9 F [facility] Height 2011-12-03 19:23:00 193.04 cm [facility] Weight 2011-12-03 19:23:00 [facility] Weight 2011-12-01 22:46:00 [facility] Height 2011-12-01 22:46:00 193.04 cm [facility] Weight 2011-12-01 22:06:00 [facility] Height 2011-12-01 22:06:00 193.04 cm [facility] Respitory Rate 2011-08-28 12:00:00 [facility] Heart Rate 2011-08-28 12:00:00 [facility] Diastolic (mm Hg) 2011-08-28 12:00:00 [facility] Noel Systolic (mm Hg) 2011-08-28 12:00:00 Kaz [facility] Reading Temperature Oral (F) 2011-08-28 12:00:00 97.7 F [facility] Diastolic (mm Hg) 2011-08-28 04:00:00 [facility] Systolic (mm Hg) 2011-08-28 04:00:00 [facility] Heart Rate 2011-08-28 04:00:00 [facility] Respitory Rate 2011-08-28 04:00:00 [facility] Temperature Oral (F) 2011-08-28 04:00:00 97.9 F [facility] Diastolic (mm Hg) 2011-08-27 20:52:00 [facility] Systolic (mm Hg) 2011-08-27 20:52:00 Kaz rial Noel Respitory Rate 2011-08-27 20:52:00 [facility] Heart Rate 2011-08-27 20:52:00 [facility] Temperature Oral (F) 2011-08-27 20:52:00 98.1 F [facility] Weight 2011-08-26 21:30:00 [facility] Height 2011-08-26 21:30:00 193.04 cm [facility] Respitory Rate 2011-07-07 14:00:00 [facility] No[facility] Diastolic (mm Hg) 2011-07-07 14:00:00 [facility] Heart Rate 2011-07-07 14:00:00 [facility] Systolic (mm Hg) 2011-07-07 14:00:00 Kaz rial Reading Temperature Oral (F) 2011-07-07 14:00:00 98.4 F [facility] Diastolic (mm Hg) 2011-07-07 10:00:00 [facility] Noel Systolic (mm Hg) 2011-07-07 10:00:00 [facility] Noel Respitory Rate 2011-07-07 10:00:00 [facility] Temperature Oral (F) 2011-07-07 10:00:00 97.3 F [facility] Heart Rate 2011-07-07 10:00:00 [facility] Temperature Oral (F) 2011-07-07 06:00:00 97.8 F [facility] Weight 2011-07-06 09:52:00 [facility] Weight 2011-07-06 08:45:00 [facility] Height 2011-07-06 08:45:00 193.04 cm [facility] Systolic (mm Hg) 2011-05-05 18:00:00 [facility] Respitory Rate 2011-05-05 18:00:00 [facility] Diastolic (mm Hg) 2011-05-05 18:00:00 [facility] Heart Rate 2011-05-05 18:00:00 [facility] Temperature Oral (F) 2011-05-05 18:00:00 98.6 F [facility] Heart Rate 2011-05-05 14:00:00 [facility] Diastolic (mm Hg) 2011-05-05 14:00:00 [facility] Systolic (mm Hg) 2011-05-05 14:00:00 [facility] Respitory Rate 2011-05-05 14:00:00 [facility] Temperature Oral (F) 2011-05-05 14:00:00 98.0 F [facility] Temperature Oral (F) 2011-05-05 10:00:00 98.6 F [facility] Systolic (mm Hg) 2011-05-05 10:00:00 [facility] Diastolic (mm Hg) 2011-05-05 10:00:00 [facility] Respitory Rate 2011-05-05 10:00:00 [facility] Heart Rate 2011-05-05 10:00:00 [facility] Weight 2011-05-02 11:34:00 [facility] Weight 2011-04-28 06:28:00 [facility] Height 2011-04-28 06:28:00 193.04 cm [facility] Respitory Rate 2011-02-17 19:45:00 [facility] Heart Rate 2011-02-17 19:45:00 [facility] Temperature Oral (F) 2011-02-17 19:45:00 97.8 F [facility] Systolic (mm Hg) 2011-02-17 19:45:00 [facility] Diastolic (mm Hg) 2011-02-17 19:45:00 [facility] Diastolic (mm Hg) 2011-02-17 15:30:00 [facility] Temperature Oral (F) 2011-02-17 15:30:00 97.7 F [facility] Systolic (mm Hg) 2011-02-17 15:30:00 [facility] Respitory Rate 2011-02-17 15:30:00 [facility] Heart Rate 2011-02-17 15:30:00 [facility] Diastolic (mm Hg) 2011-02-17 12:13:00 [facility] Respitory Rate 2011-02-17 12:13:00 [facility] Systolic (mm Hg) 2011-02-17 12:13:00 [facility] Temperature Oral (F) 2011-02-17 12:13:00 98.5 F [facility] Heart Rate 2011-02-17 12:13:00 [facility] Weight 2011-02-15 02:25:00 [facility] Height 2011-02-15 02:25:00 193.04 cm [facility] Weight 2011-02-14 23:10:00 [facility] Height 2011-02-14 23:10:00 193.04 cm [facility] Procedures Procedure Date / Time Performed Performing Clinician [facility] Fluoroscopic angiography Waleska Cohen of coronary artery and insertion of stent Fusion of lumbar spine [facility] IVC - Insertion of [facility] pinky inferior vena caval filter Pacemaker [facility] care<sup>1</sup> Percutaneous transluminal Andrwes al Reading balloon angioplasty of aorta with stent placement for coarctation of aorta Procedure on [facility] back<sup>2</sup> IVC - Insertion of [facility] pinky inferior vena caval filter Procedure on back [facility] nn <sup>1</sup> Plan of Care Planned Activity Planned Date Details Comments Source Future Scheduled 2019-12-09 INFLUENZA VACCINE [place] [facility] 00:00:00 [code = INFLUENZA VACCINE] Future Scheduled 2000 65+ PNEUMOCOCCAL [place] [facility] 00:00:00 VACCINE (1 of 1 - PPSV23) [code = 65+ PNEUMOCOCCAL VACCINE (1 of 1 - PPSV23)] Future Scheduled 1985 SHINGLES VACCINES (#1) [place] [facility] 00:00:00 [code = SHINGLES VACCINES (#1)] Future Scheduled 1951 COVID-19 VACCINE (1) Shayla deng [facility] 00:00:00 [code = COVID-19 VACCINE (1)] Encounters Start End Encounter Admission Attending Care Care Encounter Source Date/Time Date/Time Type Type Clinicians Facility Department ID 2018-11-29 Inpatient [facility] [id number] MHS W 22:21:00 2018-11-29 2018-12-01 Outpatient Maryann [facility] [id number] 22:21:00 17:00:00 Cecy Eugene GilbertUjanita 2018-04-19 2018-04-19 Outpatient [facility], 29 29 [id number] 08:00:00 08:00:00 Arnaldo Miles 2018-03-25 2018-03-29 Outpatient Prince [facility] [id number] 15:02:00 16:28:00 Kavita 20 A 2017-04-10 2017-04-11 [id number] 14:03:00 15:23:00 Kavita 34 A 2017-03-16 2017-03-23 Outpatient Morrison, [facility] [id number] 12:02:00 18:17:00 Kavita 18 A 2016-03-09 2016-03-11 Outpatient Morrison, [facility] [id number] 12:18:00 16:44:00 Kavita 05 A 2016-01-17 2016-01-18 Outpatient Alexus, [facility] [id number] 16:15:00 12:05:00 Alverto 17 2015-05-28 2015-05-28 Outpatient Elizabeth Catalan [facility] [id number] 14:59:00 17:26:00 Abel 15 2015-04-21 2015-04-24 Outpatient Justin, [facility] [id number] 00:14:00 17:10:00 Mike Amanda 46 2015-02-02 2015-02-02 Outpatient Jess, [facility] [id number] 15:30:00 19:16:00 Pop Soto 14 2014-07-06 2014-07-06 Outpatient Forbes, [facility] [id number] 18:18:00 22:22:00 Abdon Mas 13 2014-04-02 2014-04-02 Outpatient Kriss, [facility] [id number] 06:14:00 11:55:00 Terry 12 Chaitanya 2014-02-25 2014-03-05 Outpatient Bari Cox [facility] [id number] 18:17:00 20:10:00 Lesly 11 2014-01-26 2014-01-28 Outpatient Bari Cox [facility] [id number] 06:24:00 17:14:00 Lesly 62 Results Test Description [...] code = MCH) 30.5 pg 27.0-31.0 [facility] DahvwohXKWUWTWOFS2693-97-06 10:20:004.2[facility] HermannHEMATOLOGY 2018-12-01 10:20:0010.8[facility] TirlaisNVMHTHAJMO7762-11-65 10:20:0016.8[facility] VtajjseOZKHMHRMII1638-77-62 10:20:0077[facility] XndpikjVYMSMSVHWH5284-89-68 10:20:008.3[facility] LuoykvyMICSZPHDRJ3208-87-23 10:20:0032.3[facility] CARDIAC UGGJCLH2023-43-85 10:43:000.18[facility] HermannCARDIAC EEHFETG2443-05-86 07:05:000.21[facility] HermannCARDIAC CBBLTJY7288-64-44 07:05:40942Athiowvl HermannCHEM UDMZX9270-25-19 07:05:002.5[facility] HermannCHEM BOTOQ5488-42-23 07:05:002.0[facility] HermannCHEM URAPI1937-42-31 07:05:0035[facility] HermannCHEM IXHPD7402-69-45 07:05:0068[facility] HermannCHEM JQOZY2753-76-59 07:05:000.6 [facility]annCHEM SUQQM1146-25-58 07:05:0013[facility] HermannCHEM PANEL 2018-11-30 07:05:003.9[facility] HermannCHEM LCCDL8750-58-73 07:05:0027[facility] HermannCHEM ZQSGN4809-74-96 07:05:008.2[facility] HermannCHEM PIVFI0444-90-20 07:05:03663Hnnsfegl HermannCHEM RLTHP2910-41-44 07:05:007.8[facility] HermannCHEM YTLCL0018-17-56 07:05:53378Rqftiwym HermannCHEM JBDXH1915-13-94 07:05:002.00 [facility] HermannCHEM RJAUO8531-96-83 07:05:003.1[facility] HermannCHEM PANEL 2018-11-30 07:05:69620Ppqafqdb HermannCHEM ISYQE1030-05-86 07:05:0030[facility] HermannCHEM VOQMI7541-70-99 07:05:0014[facility] HermannCHEM HOKMH3987-97-04 07:05:00 Test Item Value Reference Range Interpretation Comments A/G Ratio (test code = A/G Ratio) 0.7 1 0.7-1.6 [facility] HermannCHEM IYNIC1070-06-49 07:05:004.7[facility] HermannCHEM PANEL 2018-11-30 07:05:009.9[facility] HermannCHEM RJSYQ3190-51-58 07:05:00 Test Item Value Reference Range Interpretation Comments B/C Ratio (test code = B/C Ratio) 15 1 6-25 [facility] ZczzseuMMLSLMMFCX9537-66-03 07:05:0032.1[facility] HermannHEMATOLOGY 2018-11-30 07:05:0017.8[facility] UssgerkAYJBKWANAN8282-38-17 07:05:00 Test Item Value Reference Range Interpretation Comments MCH (test code = MCH) 30.7 pg 27.0-31.0 [facility] NraemrkLBYFQIZMWU9000-56-84 07:05:003.46[facility] HermannHEMATOLOGY 2018-11-30 07:05:004.9[facility] SvcomybNFLIOHRTXT7348-08-37 07:05:008.2[facility] OncnubjVZDRJRQJWC4720-28-57 07:05:0091[facility] QdwjvcuCRTBBOMDRD9802-24-75 07:05:0095.7[facility] GtifmcqYBLYNOIHLY4748-59-65 07:05:0010.6[facility] XPZMASHMJQ4377-79-65 07:05:0033.1[facility] ArmlkqsTGCOJVQCDC0794-13-38 07:05:00 3.0[facility] EjbxswwVDPJDNVYWL6345-97-48 07:05:001.5[facility] HermannHEMATOLOGY 2018-11-30 07:05:000.2[facility] NgtujhzPCJXOOGFQG2316-08-11 07:05:000.2[facility] CynhzawWZNSMIRWKW0606-12-05 07:05:000.0[facility] AaadnieMBXGKKWSRT4223-44-83 07:05:0061.3[facility] HwizrzhAMEZSTDVRP0309-56-56 07:05:0029.5[facility] OBRPAURRBZ2350-61-67 07:05:004.4[facility] ZexjdtkMUZXAJHDGV1521-53-27 07:05:000.5 [facility] FnchrljYGQNMVZBLA1180-58-29 07:05:004.3[facility] XpqhtlfZEYOPI9368-00-73 07:05:00 Test Item Value Reference Range Interpretation Comments CHD Risk (test code = CHD Risk) 1.75 1 4.00-7.30 [facility] CcruifqJCFAKS6850-42-72 07:05:00 Test Item Value Reference Range Interpretation Comments VLDL (test code = VLDL) 14 1 [facility] XbskzahIYEJIM4150-92-17 07:05:0024[facility] JakipqhPTWSCJ1780-70-13 07:05:0071[facility] NzzqilgXUXYUI3351-66-67 07:05:0051[facility] HermannLIPIDS 2018-11-30 07:05:0089[facility] HermannSPECIAL AJUWHCGIG9983-33-67 07:05:006.8 [facility] GbukldeCEBFBZFPJB9807-68-54 18:17:00 Test Item Value Reference Range Interpretation Comments MCH (test code = MCH) 30.1 pg 27.0-31.0 [facility] NoujeweLLHKBKAIAV1986-81-73 18:17:0032.4[facility] HermannHEMATOLOGY 2018-03-29 18:17:0092.8[facility] BpggdanQVVKLSRNAW3104-27-49 18:17:0011.5[facility] WbolojkVRRUQKJOKU4461-82-79 18:17:0035.6[facility] GpidawjUSPUVOCLUW3918-72-79 18:17:0018.2[facility] RezxodrCFKQKBPMBC3007-80-90 18:17:009.8[facility] SHUICPJAWR9093-25-20 18:17:63413Fiymshyl AyvogywLJKCHPNDQR0027-77-15 18:17:005.9 [facility] VceptgbKWARAYXNTO1879-00-25 18:17:003.84[facility] HermannELECTROLYTES 2018-03-29 09:29:0010.6[facility] WjexsbpENBPKZWSTBTP9440-44-84 09:29:54663 [facility] KzzdbpsONEWLCZPAGGP0769-42-91 09:29:0042[facility] HermannELECTROLYTES 2018-03-29 09:29:007.9[facility] ShxmpqfHTQERTSLNNCR0178-36-36 09:29:0026[facility] UxuysitBLSPFLTHCSGM5543-83-08 09:29:003.6[facility] LvdepliVVYNAODEMAKO4062-26-49 09:29:76143Hznzmpeh EkgtrojILNRBAXXMUWK2559-64-79 09:29:63789Jiqxbdxf Reading NIYEPKUGIWIY1826-89-85 09:29:001.70[facility] FycfkjrIZNKEECHATAQ5020-28-09 09:29:0020[facility] AuqkbtbAGOSURVCDW8275-75-95 09:29:00 Test Item Value Reference Range Interpretation Comments PT (test code = PT) 17.7 s 12.0-14.7 [facility] MeiholcXGFGQXCDBG9019-67-42 09:29:00 Test Item Value Reference Range Interpretation Comments INR (test code = INR) 1.45 1 0.85-1.17 [facility] GgyzefsSLXZKV6073-35-79 09:29:00 Test Item Value Reference Range Interpretation Comments CHD Risk (test code = CHD Risk) 1.69 1 4.00-7.30 [facility] GywiygfFOCVWU5317-19-62 09:29:00 Test Item Value Reference Range Interpretation Comments VLDL (test code = VLDL) 13 1 [facility] TkkkwqsRSNDKD4776-06-24 09:29:0016[facility] GkztorkDKIQUB7934-61-91 09:29:0071[facility] CibzepgDJLFRJ1373-35-21 09:29:0042[facility] HermannLIPIDS 2018-03-29 09:29:0066[facility] VxylcyhUMBABMGBEJ2360-23-45 10:42:0062.0[facility] BcjmypsSHYMZFECTC8451-35-04 10:42:0030.0[facility] JvepwfnBRVCDEAOAD1361-45-74 10:42:600658Enfvlmdb EqrltkkODHFSOEAFP2140-78-94 05:33:008[facility] HermannCHEM GGHMG2480-53-68 22:16:003.5[facility] WtxugblTAWZAVCLLA5926-48-51 22:16:64058.44 [facility] HnxzkiiQPUPFBQUAA8127-60-65 22:16:0013.69[facility] HermannIMMUNOLOGY 2018-03-27 22:16:000.10[facility] MnvjvbxFYOUWHSPER4230-21-65 22:16:003.25[facility] AcjrdvxTVDUDGOJLE5901-31-08 22:16:000.78[facility] QqhsihpEXBVKOIBZU5293-21-18 22:16:000.32[facility] ZwtgxyjUJVWIISPFY9462-26-49 22:16:000.61[facility] GXKXBYMJSW6175-11-89 22:16:007.0[facility] ZoyfavxSQGFAEAHXL7100-99-72 22:16:00 2.04[facility] RqahcjhHWBXDXWGFI8296-67-59 22:16:004.6[facility] HermannIMMUNOLOGY 2018-03-27 22:16:0046.4[facility] WbbzmguBCRHGGZBYG4284-43-85 22:16:008.7[facility] JuseyuxHTECHBTPGG3614-45-44 22:16:0011.2[facility] RdfeimsHLZIOHEITY9338-00-56 22:16:0029.1[facility] HermannCARDIAC NZSASAY9072-53-12 10:11:96689Xabfowjc YbyizbqYMITXOAGWQSD3099-17-58 10:11:0010.7[facility] McovoswLFJSKEZWUVTT0647-67-52 10:11:007.5[facility] WeufmibDZSEBBVIVCHF9379-43-51 10:11:0026[facility] CITHNCDQYHKK8151-12-38 10:11:0022[facility] XktoitoVOCKWQMWJBLT2996-57-80 10:11:00 1.60[facility] MpteoagLEWCZYVOAHXG6199-37-41 10:11:13308Nnxledxv Reading LTOVDKGKGSAO1014-62-67 10:11:55818Keygxdfs KulmramPQCVFHZIWADH7660-70-74 10:11:003.7[facility] AubcrzpLZXNPOVBVEBI2877-61-22 10:11:0046[facility] KRRQJIBXWRFI1615-88-96 10:11:0087[facility] RbsazxhDDYLVGLDZQ1737-23-30 10:11:00 Test Item Value Reference Range Interpretation Comments INR (test code = INR) 2.09 1 0.85-1.17 [facility] MvzfdyqWTJENLUPAT9702-59-80 10:11:00 Test Item Value Reference Range Interpretation Comments PT (test code = PT) 23.7 s 12.0-14.7 [facility]annURINE AND EWVGH6610-83-27 14:47:00Positive *ABN*(03/26/18 8:47 AM)[facility] HermannCARDIAC YINLNEU2995-10-49 10:02:91429Vegpofpi Reading NTFAWDSVVHLM0476-14-64 10:02:009.5[facility] HrjuaqbFYQZYRZJSDIY6956-88-41 10:02:0040[facility] KojxtzwUOICWWIEPTLY0974-29-48 10:02:17231Qwfefjtg Reading BWGMJCYENUSL6341-07-81 10:02:10567Kqbujtok TnevrglFZWPQIRVNYCL2887-31-49 10:02:003.5[facility] QkfiodsKANUPUBFFWZY8438-78-99 10:02:0029[facility] UOJDHPGDBEOP0319-57-78 10:02:007.6[facility] LxgvkbqVSLLPXUFBPLH2448-95-79 10:02:001.80[facility] ObqszclXSLRIPKCNNQS9548-11-04 10:02:83022Ekktleqn Reading BFVWESAIWZWX0530-13-97 10:02:0025[facility] IezdjqcBERXESIVLJ0890-84-90 10:02:00 Test Item Value Reference Range Interpretation Comments PT (test code = PT) 27.1 s 12.0-14.7 [facility] TpadmrqKUIGYHAHZC4406-61-90 10:02:00 Test Item Value Reference Range Interpretation Comments INR (test code = INR) 2.48 1 0.85-1.17 [facility] EvlyvczKDCFCAYUHG5654-08-23 10:02:001.7[facility] HermannHEMATOLOGY 2018-03-26 10:02:000.2[facility] HxntmjdHEYYOKJDHD4061-74-85 10:02:001.4[facility] BbkbepiRYUTCMCJQA4237-33-69 10:02:003.5[facility] QkcqhywKABHMVZCOE6823-72-27 10:02:000.1[facility] DaejhedGMGDVOTWQJ0902-05-36 10:02:000.3[facility] RLVKJROGEQ6666-42-98 10:02:0066.1[facility] WvahtyjUBVIHZVFKK0691-88-46 10:02:00 5.2[facility] CjnzjndMGEXZCGWTC6115-34-81 10:02:0027.1[facility] HermannHEMATOLOGY 2018-03-26 10:02:001.4[facility] DezulqeEUACHPLJEL3462-85-42 10:02:0033.3[facility] XvpnxoxDGZATRPVDC3684-39-67 10:02:00 Test Item Value Reference Range Interpretation Comments MCH (test code = MCH) 30.6 pg 27.0-31.0 [facility] WpwmrllZSIINLPEZU7033-94-49 10:02:0088[facility] HermannHEMATOLOGY 2018-03-26 10:02:0017.5[facility] GnatczrLPLXUHZBNL8602-12-99 10:02:009.0[facility] MuravwcGVSLDERUVQ8378-86-47 10:02:005.3[facility] BsmumgiWUNDAXPHVW7709-08-30 10:02:0011.6[facility] DxuxmkiEGMICFFSWF2783-34-32 10:02:003.81[facility] TWTENFQDCS8690-93-14 10:02:0091.8[facility] GytlimaXPEOVXFDJO6316-63-49 10:02:00 35.0[facility] LpjkltzFWMVKVYTIS5673-19-05 11:24:003.78[facility] HermannHEMATOLOGY 2017-04-11 11:24:009.4[facility] OpafskdRGRSRNOTQO2362-34-99 11:24:0074[facility] YnkbzzkDHQPNNVIQY7728-95-79 11:24:0016.3[facility] EvgoepjVMNMSAMCEJ2906-08-95 11:24:0090.7[facility] VqovjpfYGPOFKGPHJ2314-48-73 11:24:0033.9[facility] MVWBMUAUGN3675-65-95 11:24:00 Test Item Value Reference Range Interpretation Comments MCH (test code = MCH) 30.8 pg 27.0-31.0 [facility] SdmlngeYHROOACMWP8397-56-82 11:24:0034.3[facility] HermannHEMATOLOGY 2017-04-11 11:24:0011.6[facility] NyicqzaZGGLZHKXYM2842-03-89 11:24:004.2[facility] MtdlpcmPAEGOEGHWS8668-07-59 11:24:005.2[facility] WfsjbbnXBKVGGLXBM4288-86-56 11:24:002.4[facility] TcincqaODKHWHMLFY7443-78-27 11:24:0058.5[facility] RDAESXPBTA5285-47-03 11:24:0033.2[facility] DootauvRABFIFRCKM3803-35-70 11:24:00 0.2[facility] AypzrhxVVKSNFNJGE9062-44-69 11:24:000.1[facility] HermannHEMATOLOGY 2017-04-11 11:24:002.4[facility] VfivtuoQEPKMFKVHF2795-61-63 11:24:001.4[facility] ExcvqhrBSZKFQGGLK3647-89-18 11:24:000.7[facility] HermannURINE AND SMGKA7271-95-68 15:39:00Negative (04/10/17 9:39 AM)[facility] QmocfzqCJKXZMWYMW9985-12-56 09:27:00 0.1[facility] FzoknanQFPNMQOFEC5221-73-59 09:27:000.2[facility] HermannHEMATOLOGY 2017-04-10 09:27:001.5[facility] PmnkqdaJFPHJNIITG6536-23-77 09:27:002.3[facility] ZzhbihpPFWIYNUUHA6374-94-90 09:27:000.7[facility] SzzkfvmMANVIMEMLZ5898-85-73 09:27:002.6[facility] CqctputQXLUBBIOYH4921-06-53 09:27:005.2[facility] UHFUDDEZSA4196-46-21 09:27:0035.9[facility] UrvsswaLCAGNBTTLT6562-21-42 09:27:00 55.6[facility] RaexrihTPVPADBCFX7458-18-87 09:27:0058[facility] HermannHEMATOLOGY 2017-04-10 09:27:009.1[facility] RcyalbqUKPVYYKOWX9391-30-60 09:27:0032.5[facility] PurwmmrVIUBQBPPPY3551-17-62 09:27:0034.1[facility] AasbfhuONXIBNWSOJ3659-40-43 09:27:0016.2[facility] IlvcgwiPPEJHTEMLZ2486-24-45 09:27:0090.3[facility] LTHQHZVFQC8683-58-91 09:27:00 Test Item Value Reference Range Interpretation Comments MCH (test code = MCH) 30.8 pg 27.0-31.0 [facility] WyyfxauSEIUPVXQLI5946-28-17 09:27:0011.1[facility] HermannHEMATOLOGY 2017-04-10 09:27:004.2[facility] GdrssuhDYXCMFTARH3486-20-16 09:27:003.60[facility] HermannANEMIA MQPPP3042-94-26 23:26:86848Jvjbejxu HermannANEMIA VQHWS2966-57-44 23:26:007.0[facility] HermannANEMIA VABLT5223-35-64 23:26:41975Egrouohg Reading ANEMIA REZQV4525-56-21 23:26:0022[facility] HermannANEMIA VAEFX7751-27-40 23:26:00 176[facility] HermannANEMIA RHYKD4896-85-08 23:26:15821Ihbguvzo HermannANEMIA OBNZJ0340-17-30 23:26:0050[facility] HermannCHEM TKWUU0299-36-91 23:26:62367 [facility] HermannCHEM PKVDI8517-09-82 23:26:000.7[facility] HermannCHEM PANEL 2017-04-09 23:26:000.3[facility] HermannCHEM LIGEN6672-21-32 23:26:000.4[facility] PaodhjrSLIMGMSJBR4825-29-14 23:24:000.8[facility] PlyhkyvFCTQBVVJLV7578-13-12 23:24:00 Test Item Value Reference Range Interpretation Comments PTT (test code = PTT) 28.0 s 22.9-35.8 [facility] AkdwaljTZMACEEITD3539-31-47 23:24:00 Test Item Value Reference Range Interpretation Comments PT (test code = PT) 19.1 s 12.0-14.7 [facility] VocgpjlIBKCSCFEYI5619-90-12 23:24:001.59[facility] HermannHEMATOLOGY 2017-04-09 23:24:98955Ccqbseni ZcfqdcxXCJISRHFDS5911-89-20 23:24:009.69[facility] TyezavkTHDDDOJZIM2565-21-89 23:24:0025[facility]annURINE AND GOQDY9287-38-33 15:14:00<=1.0[facility]annURINE AND HNNOI0651-57-12 15:14:007[facility]annURINE AND YBOJK7893-33-04 15:14:00Negative (04/09/17 9:14 AM)[facility]UR[facility] AND JKNGF9740-47-98 15:14:00Negative (04/09/17 9:14 AM)[facility]annURINE AND TPTWF9056-99-23 15:14:00Negative (04/09/17 9:14 AM)[facility]annURINE AND WXIWC6016-59-65 15:14:00Clear (04/09/17 9:14 AM)[facility] URINE AND HTQFF1774-45-62 15:14:001.010[facility]annURINE AND KKUQI7600-30-85 15:14:006.0[facility]annURINE AND LRYKA1504-82-85 15:14:001[facility] URINE AND UUOZT6825-47-60 15:14:001[facility]annURINE AND TQVNU3903-04-25 15:14:00Negative *NA*(04/09/17 9:14 AM)[facility] HermannCARDIAC MHIPWMM6569-72-80 02:31:44345Nbtuvpvz HermannCARDIAC HDPVKOL6969-66-65 02:31:003.7[facility] CARDIAC KKUIJDX1922-46-09 02:31:000.18[facility] HermannCHEM NVWCP2290-62-20 02:31:00<10.0[facility] EkbixqhSJLMQNPOMMAX6154-39-44 02:31:0011.4[facility] TyilbmrURXUJTTWDXBU3663-13-57 02:31:0028[facility] GrmpqidQWPYEBRBIZRY9002-23-14 02:31:0023[facility] CzraxciLIKIRGZAKXKZ8190-89-58 02:31:002.40[facility] LBWRGMRRTXEK6942-38-01 02:31:61449Yrnreykj CgkbaxxMSVFZNDAEAZL2797-64-92 02:31:003.4[facility] RlrntkeISZQTICTYYYJ0738-66-61 02:31:03490Xvpptces Reading JXGBLOLLHTBP5071-55-27 02:31:0026[facility] ThaelcxSJJWKPLNIYGB0177-13-05 02:31:00 8.1[facility] TwcnhctXYVICDUTUGZE2339-60-73 02:31:03071Llbfdaub HermannHEMATOLOGY 2017-04-09 02:31:0061[facility] CiouycjYCOWBEGKVX4111-06-96 02:31:0016.6[facility] ZxdrhioDYRVYTZJOP6578-40-61 02:31:0033.3[facility] UgdxnsvZXGOWNRPDJ8684-72-79 02:31:0091.2[facility] SqtymkfYTKODYEAZH3674-42-62 02:31:00 Test Item Value Reference Range Interpretation Comments MCH (test code = MCH) 30.4 pg 27.0-31.0 [facility] SckhvwrKKUUKYKILW8497-18-94 02:31:004.3[facility] HermannHEMATOLOGY 2017-04-09 02:31:003.84[facility] JmyiqctGWIYLFHHWH7922-22-33 02:31:0011.7[facility] KxnprzuYZIVTYWVVJ6892-00-39 02:31:009.5[facility] TdtotktJONQMCFZZK9130-03-26 02:31:0035.0[facility] VnrkeawWGLSKCOIQD6269-35-48 02:31:00 Test Item Value Reference Range Interpretation Comments PTT (test code = PTT) 26.7 s 22.9-35.8 [facility] YszpkccXNOAQGSQVT8982-01-83 02:31:001.67[facility] HermannHEMATOLOGY 2017-04-09 02:31:00 Test Item Value Reference Range Interpretation Comments PT (test code = PT) 19.8 s 12.0-14.7 [facility] DsqcguwTUCUWRWCKT4354-15-11 02:31:0026.2[facility] HermannHEMATOLOGY 2017-04-09 02:31:0069.6[facility] JsunwpdEZQZDPNHFO7300-03-07 02:31:001.0[facility] GhqenjfLLWLXQGBXQ3280-81-41 02:31:003.0[facility] QsyokcyJYPSJWVZPP5139-10-93 02:31:000.2[facility] FuxjgfkIKQQBIOJUJ1796-65-48 02:31:000.1[facility] WJLEXNAOVZ5088-40-31 02:31:001.1[facility] BxprmqdGECZFERCVN9275-21-53 02:31:000.0 [facility] SdoikejOJXGCQAZZQ4685-25-37 02:31:003.0[facility] HermannHEMATOLOGY 2017-04-09 02:31:000.0[facility] ZfrzjniYQHRJZYAXI8005-65-47 10:18:0010.7[facility] TpziqrkGHTUDJQWGM5101-51-52 10:18:0092.8[facility] UljxxpxIBAUSPHVSL6410-79-79 10:18:00 Test Item Value Reference Range Interpretation Comments MCH (test code = MCH) 30.5 pg 27.0-31.0 [facility] SjcywnkINIQSXKGXC2514-50-01 10:18:0012.3[facility]annHEMATOLOGY 2017-03-23 10:18:0037.5[facility] CarwnplQQWHASQSUH5206-06-07 10:18:0032.9[facility] RziwrunGWJZKGBDCS4944-37-81 10:18:0041[facility] OxcbcchVWXUBKQXFO6812-30-15 10:18:0016.7[facility] LjzvrzoPKAIPJRABY2950-83-47 10:18:006.8[facility] ERRHXEDGZW9885-31-48 10:18:004.04[facility] WdqptjwRYWPJJFLER9223-59-55 10:18:00 0.1[facility] VtpoqkvXZYUVCODXG8680-40-59 10:18:003.2[facility]annHEMATOLOGY 2017-03-23 10:18:001.3[facility] IdevijvOYLMWPWUPB1497-30-31 10:18:0073.3[facility] XyzqpytDJMMBVUFCJ4242-39-63 10:18:0022.1[facility] CeibhqzEJSCSPZDFW6677-43-26 10:18:000.0[facility] WxbyvvrWNKLXXZDKL8270-20-10 10:18:000.2[facility] LIUPGLQLTM6646-05-94 10:18:000.1[facility] FslhybtVZJPKQDASP4521-09-81 10:18:005.0 [facility] FgzfyvgCDLDWYIFTO8659-50-49 10:18:001.5[facility]HEMATOLOGY 2017-03-22 10:26:0092.0[facility] JlcchmsMJIVMBTHAC6354-77-52 10:26:0011.9[facility] YrltgngWDVUOCPZCG2995-85-21 10:26:00 Test Item Value Reference Range Interpretation Comments MCH (test code = MCH) 30.5 pg 27.0-31.0 [facility] RqdgsmyHFARETAXTD4290-79-99 10:26:0035.7[facility]annHEMATOLOGY 2017-03-22 10:26:008.9[facility] DvfceyiTPKCOKNYVS1457-96-92 10:26:0058[facility] UkyjtfoCCRTDKQBEA7990-42-82 10:26:0016.4[facility] OoetqqhOTAIDOBYNH0085-38-35 10:26:003.88[facility] XcmwwtwVVDKAGQQWF6391-26-08 10:26:005.3[facility] RXQJCEYARKEP8931-78-64 10:26:0015.8[facility] TctrkbcQTSFAFMWBBBC8040-21-06 10:26:008.8[facility] JnljykiGTNWECJQZKPQ7479-40-67 10:26:0026[facility] CDESBLBQXOJD0091-75-66 10:26:88354Hghhzjtf PyqlvomUYFCHNOHKXWP3137-12-28 10:26:0040[facility] AminifkWSUEPFHLXNNS7720-61-16 10:26:0096[facility] ADONSZETRKOR8992-71-74 10:26:003.8[facility] FoiarakJIHGWNUOQAHB3788-48-12 10:26:0025[facility] VanilkqCGKEDBXRHYVR6599-32-81 10:26:09962Krricxpk Reading TMNTDMCYHBMR4892-78-02 10:26:002.60[facility] YithwfnTIGFMMSGAP3741-49-55 10:26:00 0.3[facility] CiymjpoZHXRXSZHAF9945-44-08 10:26:001.2[facility]annHEMATOLOGY 2017-03-22 10:26:000.1[facility] SckucyzFFZWRESQOR4512-11-29 10:26:003.7[facility] ChrssziAETCDLLBNZ6530-95-72 10:26:0069.6[facility] UixkekvXTGIUGJALB6082-16-94 10:26:0023.0[facility] OuowawkBVLMBHREJL2167-87-10 10:26:001.9[facility] AUBTADLHLJ5349-63-01 10:26:004.9[facility] JvkfltxPQLRPFWBFE2436-25-74 10:26:000.6 [facility] JkjifixTMAQXMXJIF9897-40-02 10:26:0033.2[facility]annELECTROLYTES 2017-03-21 09:55:0014.5[facility] CbfnvthOYZACYWPRDBR5526-65-33 09:55:0022[facility] UgrjfdhDFAHAZCJZWSQ9525-95-93 09:55:002.90[facility] DbkhgyyFHFGMICFBJNY3989-23-71 09:55:0044[facility] NvnvcphCXXVNUDUIUTB3128-78-11 09:55:0097[facility] CNTDRQLQRLMC1457-21-29 09:55:86171Dcgjulot WumozutKPLNAHPKWQXD7013-19-08 09:55:003.5[facility] PlmevkqPDOAHLZPKJWG2106-37-09 09:55:009.0[facility] TXRRKENUKCAZ6190-82-10 09:55:0027[facility] WgerjphZLIGSUOETGFV3814-47-55 09:55:00 101[facility] BjiuekgFUNAEZQKQA3269-66-41 09:55:000.0[facility]annHEMATOLOGY 2017-03-21 09:55:001+ *ABN*(03/21/17 3:55 AM)[facility] 2017-03-21 09:55:001.4[facility] NvhyjlnLVBJHCIBVV6038-61-33 09:55:004.9[facility] XknwlfdMVVYZJDASY0734-95-25 09:55:0027.5[facility] WzgzezmZRJURJWXIH0543-84-46 09:55:000.2[facility] QffysjuRGYNKWYPGN7863-63-67 09:55:001.4[facility] FELSYMQUTS4543-31-93 09:55:000.6[facility] GcjrygiLJMVDRFWKR0702-27-86 09:55:003.3 [facility] CeuujbdNRBZFCNSAF1190-14-21 09:55:0065.6[facility]annHEMATOLOGY 2017-03-21 09:55:000.1[facility] DyeuwuhOJPUHLXUSV9953-47-93 09:55:00 Test Item Value Reference Range Interpretation Comments PT (test code = PT) 14.3 s 12.0-14.7 [facility] XiialqfOYNWVUCPML3474-46-25 09:55:001.11[facility]annHEMATOLOGY 2017-03-21 09:55:0012.0[facility] DzwpinrQJJAXGBQPB1138-19-47 09:55:0035.4[facility] EyckxltFVQIGQHSHW2103-46-31 09:55:0091.2[facility] FoedhlyAAVXKWJJPZ2869-95-85 09:55:003.88[facility] QehdwcwMCEJXIZEQW9224-33-13 09:55:005.0[facility] HXBNTQJQWV9581-07-16 09:55:0016.3[facility] SifwzosYSIIEMXIBG5738-32-63 09:55:0065 [facility] OlfuxbbOURSWDBHYW2949-62-23 09:55:008.8[facility]annHEMATOLOGY 2017-03-21 09:55:00 Test Item Value Reference Range Interpretation Comments MCH (test code = MCH) 30.8 pg 27.0-31.0 [facility] DcvohhkAMUXZXFIDR1074-95-90 09:55:0033.8[facility] HermannIMMUNOLOGY 2017-03-21 09:55:00Negative (03/21/17 3:55 AM)[facility]annELECTROLYTES 2017-03-20 11:35:0016.2[facility] NulbspcJBAMWLCJKXFZ5741-34-59 11:35:0024[facility] YtcpwjaCFURYTAMFOHB5351-68-71 11:35:009.1[facility] ZcqhvckUTGBFETCTXPA8855-38-18 11:35:0095[facility] SbnnswgZLQMFRYYYTUW1744-95-99 11:35:0043[facility] UOJGPBNHMJGZ2465-63-06 11:35:0098[facility] HtluawfQCTDWBMMPYWF4315-41-03 11:35:00 3.2[facility] NjmxpxeYIDVCFVPKSLS1668-56-58 11:35:0024[facility]annELECTROLYTES 2017-03-20 11:35:05950Anzpebzy YobliwzVWHYKQFSRGVP9964-31-60 11:35:002.70 [facility] MkfngptQTTMLNJEHS1783-05-52 11:35:00 Test Item Value Reference Range Interpretation Comments PT (test code = PT) 14.4 s 12.0-14.7 [facility] RzmpzkvUYXRBFQVBQ8245-11-23 11:35:001.12[facility]annHEMATOLOGY 2017-03-19 11:42:001.20[facility] ZrytohqQHVMDNLIQM6897-35-30 11:42:00 Test Item Value Reference Range Interpretation Comments PT (test code = PT) 15.3 s 12.0-14.7 [facility] HermannCHEM OQLDA8564-13-17 14:57:002.3[facility] HermannCHEM PANEL 2017-03-18 14:57:002.9[facility] HermannCHEM EWZOH8446-48-82 14:57:002.0[facility] NqmgkvxFNFKFJYFEO9418-90-61 14:57:000.0[facility] NfwtwmlILTINVJPRT7453-60-45 14:57:00 Test Item Value Reference Range Interpretation Comments PTT (test code = PTT) 38.2 s 22.9-35.8 [facility] SbwaqrzGZLMPOAETO0163-49-61 14:57:00<10[facility] 2017-03-18 07:48:00 Test Item Value Reference Range Interpretation Comments PTT (test code = PTT) 49.8 s 22.9-35.8 [facility] ZfkzuieWAEJAGGSOH4594-48-85 02:24:00 Test Item Value Reference Range Interpretation Comments PTT (test code = PTT) 33.2 s 22.9-35.8 [facility] AoqosljECMMJMEXBF8537-65-86 18:58:003.61[facility] 2017-03-17 18:58:31711Jafgaiij PiekiqbRGLOGOVFFU0064-72-69 18:58:00Negative 1(03/17/17 12:58 PM)[facility] KojcfslCOMDAPDCIZ0775-12-50 18:58:00 Test Item Value Reference Range Interpretation Comments Pat Od Value (test code = Pat Od 0.069 1 Value) [facility] BicuguoYYCYJWATYF4308-34-92 18:58:00 Test Item Value Reference Range Interpretation Comments Pos CO Value (test code = Pos CO 0.400 1 Value) [facility]CHE[facility] LWATQ0468-09-89 10:09:003.0[facility]annCHEM PANEL 2017-03-17 10:09:002.4[facility]annCHEM DUTLR7793-47-76 10:09:002.3[facility] WIAPA5615-74-23 02:57:006.0[facility] STOOL 2017-03-17 02:57:001.012[facility] BOVVY2670-66-53 02:57:00 <=1.0[facility] ZZYFC5979-74-53 02:57:001[facility] JNKVQ4356-81-85 02:57:00Negative (03/16/17 8:57 PM)[facility] WTYKP0524-22-60 02:57:00Negative (03/16/17 8:57 PM)[facility] XAQOA5177-46-74 02:57:00Negative (03/16/17 8:57 PM)[facility] TMSRP0008-83-10 02:57:00Negative *NA*(03/16/17 8:57 PM)[facility] IMDRV7085-78-29 02:57:00Clear (03/16/17 8:57 PM)[facility] CHEM 2017-03-17 02:57:000.1[facility] AAHG8741-82-23 02:57:00None Seen (03/16/17 8:57 PM)[facility] GUTJ5900-42-87 02:57:77130.00[facility] CZDC9442-50-55 02:57:0014.8[facility] CDWH9631-58-36 02:57:0033[facility]annCARDIAC DXXOFZX1277-90-33 19:09:001.8[facility] CARDIAC QDFMJFN9631-43-80 19:09:56894Lmaroufz HermannCARDIAC NVRBNZA1307-52-78 19:09:002.1[facility]annC[facility]AC UKHMZWF1234-55-10 19:09:000.15[facility]annC[facility]AC FUSVWVA0931-94-48 19:09:52834Uzipbpww HermannCHEM ZEBWV8470-73-98 19:09:000.07[facility] WyckwnqLMVSXXUICV5950-36-10 19:09:0054[facility] EWLNMRRRCOPR1934-03-91 09:32:0015.7[facility] BpbwvikEBCRAFFPURCH9867-59-55 09:32:0024[facility] FixjzrfSTAKOQGZUXRX1861-36-85 09:32:99437Hphqiayl Reading NJGTUIGQQXTD0973-12-06 09:32:003.7[facility] FfcocmoVMLXKYKGUYUJ6008-49-51 09:32:70824Sqszvxqi XdcomfmJCSRYKNETXYY5300-88-70 09:32:0043[facility] GXLAZXOJRJCV5028-82-75 09:32:007.9[facility] RctwrpkZMQYLPMLMMHV0143-27-68 09:32:78884Qghmulgq DlmoqfbTMNFKRCQFUWH0086-98-61 09:32:0034[facility] ASRLBNTMPNEM9629-54-13 09:32:001.70[facility] JqpligwWVGERP4045-13-48 09:32:0017 [facility] SpgspfeXITBYT7375-77-03 09:32:0031[facility] AfxpdqzIOBTWN7063-49-90 09:32:49664Iyurmbqg MfhliboLWOWLR6357-82-11 09:32:0085[facility] HermannLIPIDS 2016-03-11 09:32:001.89[facility] VtkznsuFNWFRI9574-59-92 09:32:0054[facility]annCARDIAC WRLDULZ0911-54-77 21:57:84714Fukohlag HermannCARDIAC ENZYMES 2016-03-09 21:57:002.0[facility]annCARDIAC WIOMSIK3082-53-61 21:57:000.19 [facility] YQCXKNN7493-17-71 21:57:001.7[facility]annCARDIAC YPNQYME2256-58-61 21:57:0084[facility]annCHEM VOGKW3849-66-70 21:57:0035 [facility]annCHEM IKJBC6675-89-86 21:57:0029[facility]annCHEM PANEL 2016-03-09 21:57:003.8[facility]annCHEM GZSIO9847-74-61 21:57:008.2[facility]annCHEM PZXOC6865-40-37 21:57:18026Alklqbgt HermannCHEM YYVPP7360-17-83 21:57:29114Wrwysmzv HermannCHEM SLTRL3175-55-82 21:57:002.00[facility]annCHEM TLNFL4206-43-68 21:57:0034[facility]annCHEM CDQWV6830-43-98 21:57:13633 [facility]annCHE[facility] LGMNA3842-85-94 21:57:0013.8[facility]annHEMATOLOGY 2016-03-09 21:57:0010.1[facility] CrxvvcpCUSPGAMIIO8503-62-05 21:57:55245Waffcbcp KxayteuYULKZQPRDX4949-16-06 21:57:0018.7[facility] JmdnitfCXHSPSKEOS6465-69-28 21:57:0012.4[facility] DajftpaQZFWFIKMWP1506-15-73 21:57:0032.0[facility] NRVKJYEQID1606-95-15 21:57:00 Test Item Value Reference Range Interpretation Comments MCH (test code = MCH) 27.8 pg 27.0-31.0 [facility] VhfouxcPCPQVYCVQY9463-32-30 21:57:0086.7[facility]annHEMATOLOGY 2016-03-09 21:57:0038.7[facility] BotcexkSZYVIXPBMO8549-28-13 21:57:004.46[facility] GojperwAOWJSTGSAS3503-09-49 21:57:006.5[facility] YnrrvqaTUYGAQVTTH9861-61-16 21:57:003.9[facility] LjkvesqFUQZDJSKWT8225-02-15 21:57:002.0[facility] BGIUXFUOHS0270-91-29 21:57:004.1[facility] ZhabyzvJGJADWOZFF8613-81-66 21:57:000.0 [facility] KrvbruuSYEXYQDTFN1088-41-21 21:57:000.5[facility]annHEMATOLOGY 2016-03-09 21:57:001.7[facility] ZknqpbpUGWYSKXVNF6657-27-74 21:57:000.1[facility] ZmkeyvvXIHYKASAEQ7258-33-97 21:57:000.3[facility] CaewpqmEFYDQNJNLE2294-17-73 21:57:0030.7[facility] QbrrcfdBGLVYLSFFJ2370-74-17 21:57:0063.2[facility] URINE AND SHCJW3144-96-57 21:57:006[facility] AND HWJDX4835-07-94 21:57:001[facility] UMAQM5797-24-23 21:57:00Small *ABN*(03/09/16 4:57 PM)[facility] HMUUJ3483-87-41 21:57:00Negative (03/09/16 4:57 PM)[facility] KPXYU4913-74-67 21:57:00<=1.0[facility] ZYVEN0303-02-82 21:57:00Negative *NA*(03/09/16 4:57 PM)[facility] DYFSD0042-57-59 21:57:00Negative (03/09/16 4:57 PM)[facility] ILFUM3623-44-30 21:57:007.0[facility] STOOL 2016-03-09 21:57:00Clear (03/09/16 4:57 PM)[facility] STOOL 2016-03-09 21:57:00Light Yellow *NA*(03/09/16 4:57 PM)[facility] KDUZG8986-32-87 21:57:001.009[facility]annCARDIAC YOQHMKI2949-23-20 09:41:00 1.0[facility]annCARDIAC LKLHHVX8661-40-95 09:41:000.9[facility]annCARDIAC PACZLJO9560-95-40 09:41:000.17[facility]annCARDIAC ZBGBIER0173-99-80 09:41:00 91[facility] ErfsvywBKNAVXIRDBMK1075-35-46 09:41:0012.1[facility] EMCVMEPOZTUT7890-95-60 09:41:004.1[facility] YkddrbiWGHMADBDDYSG3421-62-15 09:41:64824Mroxeqdi RxckphdDQTCPAXGXZDP8320-73-26 09:41:0034[facility] JJCNVZWPNEPW2947-57-02 09:41:0030[facility] YqsjqthZXFGVLXDRFGP5987-72-73 09:41:00 8.5[facility] IumkelxNUTNJUYFJXHV8692-58-61 09:41:0093[facility] HermannELECTROLYTES 2016-01-18 09:41:0027[facility] QrbtpboQXKRHREAZBMU8093-99-10 09:41:002.05[facility] LakwhlnKUXEXBWKSSWM5510-97-55 09:41:29472Vubfihgo QtckzurWOTXKMZULQ6353-88-13 09:41:0087.5[facility] JetppjoLODMPTNTIN6882-08-33 09:41:00 Test Item Value Reference Range Interpretation Comments MCH (test code = MCH) 28.0 pg 27.0-31.0 [facility] UfqnjjeMIWVMAWBUL5145-65-70 09:41:0017.7[facility]annHEMATOLOGY 2016-01-18 09:41:0032.0[facility] YkyyraxTKBNEZGZUI0519-43-93 09:41:008.8[facility] QamzvmtBIPNATEWQG0827-27-83 09:41:98412Kznygjwu KfoigwcZSSNHBVZLH8104-68-03 09:41:005.2[facility] VmcxhjzFBULQFUVMZ0579-54-38 09:41:0032.9[facility] MYTKAIUNDU7045-87-18 09:41:0010.5[facility] ThimvjmSBPVUSABOE7819-45-26 09:41:00 3.76[facility] WggfqjqKSPEDTLULU9443-51-52 09:41:005.9[facility]annHEMATOLOGY 2016-01-18 09:41:0053.3[facility] RpenameKEKHIVZVQX8092-10-48 09:41:003.7[facility] AjmlifnKJZBNZEXRB6990-87-20 09:41:0036.8[facility] FsvpntkHIBEXCXUMW3367-84-98 09:41:001.9[facility] YizgyalTJUEFSJSGY3032-98-24 09:41:000.3[facility] ZSBDGYNJWI0289-37-19 09:41:002.8[facility] UiaededNGDQBZCSJB4384-22-77 09:41:000.0 [facility] SsgvsikJCQFUPDGFH8432-25-44 09:41:000.3[facility]annHEMATOLOGY 2016-01-18 09:41:000.2[facility] QrjegyiOYTDKS3356-76-03 09:41:0017[facility] PkupevtNZYGHE7731-04-51 09:41:0034[facility] NimegnhHEQLZI7410-73-06 09:41:0084 [facility] NwcabvmPTAVZH9882-52-90 09:41:0051[facility] TjqxjroFFRQJR6315-85-97 09:41:89421Pjsztfaj WnixmywOGMWIY9875-78-85 09:41:002.00[facility]annCARDIAC DUQNFVK4358-09-77 02:20:001.3[facility]annCARDIAC GTMYOVX3525-04-96 02:20:00 1.2[facility]annCARDIAC NMISEYA9759-52-27 02:20:000.16[facility]annCARDIAC EIAPCHK2040-15-39 02:20:0095[facility] LavcxeqDWMQARVHRV9468-55-52 02:20:00 Test Item Value Reference Range Interpretation Comments PTT (test code = PTT) 28.0 s 22.9-35.8 [facility] DeczyhdUMQNVYMGTZ5123-63-63 02:20:001.22[facility]annCARDIAC ENZYMES 2016-01-17 21:51:001.6[facility]annCARDIAC JDBIOXI1719-32-39 21:51:000.18 [facility]annCARD[facility]AC HKIMFOZ5867-35-67 21:51:20781Ibyivxeo HermannCARDIAC XHYHFBZ3439-03-52 21:51:66468Vexhrhlh HermannCARDIAC AJQXEOG5388-61-36 21:51:00 1.5[facility] HermannCHEM SCGUZ4876-84-97 21:51:0035[facility]annCHEM PANEL 2016-01-17 21:51:000.6[facility]annCHEM IGKHK6674-89-11 21:51:005.1[facility]annCHEM RIMJP6125-37-22 21:51:0013[facility]annCHEM CLAYS8922-41-25 21:51:0082[facility]annCHEM FYANK4135-37-21 21:51:0011.9[facility]annCHEM ECDMS1672-75-53 21:51:000.3[facility]annCHEM VWCFL5045-50-16 21:51:0012 [facility]annCHE[facility] CUGQS8112-22-57 21:51:0014[facility]annCHEM PANEL 2016-01-17 21:51:003.1[facility]annCHEM YXWYG6042-00-07 21:51:0027[facility]annCHEM VWQIA5684-68-37 21:51:82782Zlxpqyuy HermannCHEM KCNKY2127-65-44 21:51:008.2[facility]annCHEM GCVSX1154-49-71 21:51:008.1[facility]annCHEM DWBUR8680-50-35 21:51:002.02[facility]annCHEM QCTXQ7849-74-55 21:51:0028 [facility]annCHEM MKSFE5679-40-12 21:51:98657Tqsjgzec HermannCHEM PANEL 2016-01-17 21:51:003.9[facility]annCHEM ABUTS6593-34-19 21:51:27301Bmswappb XieairfHCGRHXVPPW0198-94-39 21:51:0032.7[facility] XxuxgogAKQEQPOKSD7765-68-60 21:51:0087.5[facility] LdnlzybCYNCTADKYE9151-12-50 21:51:00 Test Item Value Reference Range Interpretation Comments MCH (test code = MCH) 28.0 pg 27.0-31.0 [facility] AqknobyJRUZLJVMBY9435-35-88 21:51:0032.0[facility]annHEMATOLOGY 2016-01-17 21:51:0017.9[facility] XwgdrysDNOVUCAXTG6194-15-39 21:51:01823Aietsqps GfxvkdjRFPCYRNYJT4666-94-82 21:51:008.3[facility] DjdzwyoKWFYKHTQWY6977-95-18 21:51:005.5[facility] UpoivzjKGDXLWADZD0001-24-40 21:51:003.73[facility] SUAVXTQHFD3478-13-06 21:51:0010.4[facility] UvqqyaoEAQUQITTUM3445-02-08 21:51:00 33.3[facility] XldkhyiUUPXQZTJBX4705-89-84 21:51:002.5[facility]annHEMATOLOGY 2016-01-17 21:51:005.8[facility] RdigjoySIRJQYMUNQ4625-97-57 21:51:000.3[facility] BqtgqccMOGAYOQXBM2789-97-45 21:51:003.2[facility] AygneezTPXMGDUXAI7491-65-31 21:51:001.8[facility] HylmnhhKVKJTCACKC4035-47-53 21:51:000.3[facility] IFWWZQLNLQ8827-38-03 21:51:000.1[facility] KmokethEBAUCCDQKH7412-72-13 21:51:000.0 [facility] CncoptmWQQBKDOEWG0056-41-12 21:51:0058.1[facility] HermannCHEM PANEL 2015-05-28 21:44:0047[facility] HermannCHEM YJJRQ2728-72-74 21:44:0012[facility]annCHEM RVASI8214-40-83 21:44:003.5[facility]annCHEM TIHIL6108-49-60 21:44:007.7[facility]annCHEM LVFJP2783-30-33 21:44:0076[facility]annCHEM HDZOO8873-43-51 21:44:000.4[facility]annCHEM JFTDI9963-60-27 21:44:0017 [facility]annCHEM CIDLZ6670-54-28 21:44:001.60[facility]annCHEM PANEL 2015-05-28 21:44:70020Utruhhra HermannCHEM ISRTL8009-06-01 21:44:004.3[facility] HermannCHEM DJGXX9212-78-63 21:44:13864Wisilkxl HermannCHEM HYNAJ3210-99-88 21:44:008.5[facility]annCHEM EXKGH3739-42-81 21:44:0028[facility]annCHEM SCHTJ2900-64-86 21:44:0082[facility]annCHEM WCZCW6010-21-79 21:44:0027 [facility]annCHEM IGROJ4993-94-10 21:44:000.8[facility]annCHEM PANEL 2015-05-28 21:44:004.2[facility] HermannCHEM NYANN1586-66-89 21:44:0010.3[facility]annCHEM XQAOR4544-09-74 21:44:0017[facility] BdkacczIMLSVKXIMK1144-33-50 21:44:00 Test Item Value Reference Range Interpretation Comments PTT (test code = PTT) 23.6 s 22.9-35.8 [facility] BdfnomqCTPJCGOWCA5656-78-66 21:44:001.12[facility]annHEMATOLOGY 2015-05-28 21:44:00 Test Item Value Reference Range Interpretation Comments PT (test code = PT) 14.7 s 12.0-14.7 [facility] PqobscsTBZPEZQHQG9083-60-62 21:44:0072[facility]annHEMATOLOGY 2015-05-28 21:44:009.8[facility] HmcwsnhJRLNNQHJUP3314-13-78 21:44:0018.5[facility] UpjqhejDDGWQDGUXY2644-10-46 21:44:0033.3[facility] CnxumxmMPQEXDMCZT4902-58-29 21:44:0087.0[facility] ZcollqhPKYNSLQZDB8915-16-13 21:44:00 Test Item Value Reference Range Interpretation Comments MCH (test code = MCH) 28.9 pg 27.0-31.0 [facility] AltdktzYGJIVVPSTU4722-24-63 21:44:0036.7[facility]annHEMATOLOGY 2015-05-28 21:44:0012.2[facility] CtbfftgDTOCBOPOQS3682-73-99 21:44:004.22[facility] LjypfivHGXDWRFRXW9213-10-93 21:44:005.9[facility] BzgznpnAZKPUTJBVJ1841-73-70 21:44:000.1[facility] GnaglslJXUPVWXHMQ8561-24-52 21:44:000.0[facility] XQQJVIEZBD6416-77-22 21:44:000.5[facility] TegmfuvBOBICRGRPP4615-39-36 21:44:001.7 [facility] PlzzfwtKPBABUBTHI0254-23-79 21:44:003.6[facility]annHEMATOLOGY 2015-05-28 21:44:002.3[facility] TewklisYPLJCIAMEU8268-53-92 21:44:008.0[facility] LzpgfjvUFLJONVXKR5225-08-80 21:44:0028.5[facility] FmjnnayPCVNYFLCPF2984-26-67 21:44:000.3[facility] BdcyhppMHLJGTMBMW8196-09-64 21:44:0060.9[facility] URINE AND IBTTM8376-65-69 21:44:00None Seen (05/28/15 3:44 PM)[facility]INE AND HEUTQ2803-74-19 21:44:00None Seen (05/28/15 3:44 PM)[facility]INE AND RNBDH9445-56-79 21:44:00Large *ABN*(05/28/15 3:44 PM)[facility]INE AND ZCBZA7316-14-27 21:44:000.2[facility]annUR[facility] AND GYQPX0381-89-54 21:44:00Positive *ABN*(05/28/15 3:44 PM)[facility] GLRYF7111-43-01 21:44:00 Test Item Value Reference Range Interpretation Comments UA Spec Grav (test code = UA Spec 1.015 1 Grav) [facility] XNJVQ9474-56-83 21:44:00Slight Cloudy (05/28/15 3:44 PM)[facility] LJCMJ6080-96-36 21:44:00 Test Item Value Reference Range Interpretation Comments UA pH (test code = UA pH) 7.0 1 5.0-8.0 [facility] YKMBT1881-66-30 21:44:00Yellow *NA*(05/28/15 3:44 PM) [facility] XDHRY0891-48-28 21:44:00Negative (05/28/15 3:44 PM) [facility] NEYIW6821-80-55 21:44:00Negative *NA*(05/28/15 3:44 PM) [facility] DOAQH9923-63-46 21:44:00Moderate *ABN*(05/28/15 3:44 PM)[facility] DQKCL2805-82-00 21:44:00Negative *NA*(05/28/15 3:44 PM)[facility] TiifgbcRYGNDIGDHG3932-27-78 20:07:00 Test Item Value Reference Range Interpretation Comments POC PT (test code = POC PT) 12.2 s 12.0-14.7 [facility] ThdflksFWLBSOQHSJ4272-52-58 20:07:001.0[facility]annCARDIAC ENZYMES 2015-04-22 00:26:000.9[facility]annCARDIAC WUTVWXG3867-33-55 00:26:000.20 [facility]annC[facility]AC GUCGPDO2904-46-64 00:26:001.6[facility]annCARDIAC RQADQEO8358-26-09 00:26:95546Xekdufcu HermannCARDIAC PHHWHUB2613-88-40 17:11:00 0.24[facility]annCARDIAC UBIPRXA6087-79-06 17:11:002.3[facility]annCARDIAC PLFBJIH1636-21-78 17:11:03834Osggtyed HermannCARDIAC YAFGVWN5578-52-60 17:11:00 1.7[facility]annCARDIAC RQJZGXG5910-17-43 09:10:30197Ezyzvnpk HermannCARDIAC ZDTPRKO6868-87-86 09:10:001.8[facility]annCARDIAC DJHPYPY8772-27-98 09:10:00 0.24[facility]annCARDIAC DKMCLFX6180-52-50 09:10:03924Gkhfspzo HermannCARDIAC QHTNRCV5435-20-33 09:10:001.4[facility] HermannCHEM DVNYU5095-24-26 09:10:002.2 [facility]annCHEM FGGVT3359-71-84 09:10:002.0[facility] HermannCHEM PANEL 2015-04-21 09:10:0097[facility] HermannCHEM XFMVB3841-89-11 09:10:0020[facility]annCHEM FFTEL7561-30-00 09:10:006.9[facility] HermannCHEM CSSTX0067-06-86 09:10:003.1[facility] HermannCHEM RFCPV2166-55-82 09:10:0018[facility]annCHEM PJRMQ9729-37-38 09:10:001.70[facility] HermannCHEM DTEEJ5515-14-85 09:10:92954 [facility]annCHEM MXKAM7060-73-43 09:10:05463Ksfcsoic HermannCHEM PANEL 2015-04-21 09:10:0073[facility] HermannCHEM JVTQP3760-06-96 09:10:003.6[facility] HermannCHEM YOXPE8639-70-02 09:10:0024[facility] HermannCHEM NEQXG4770-50-07 09:10:0043[facility] HermannCHEM HNOGA6099-97-66 09:10:008.2[facility] HermannCHEM YQQLX1709-36-37 09:10:0027[facility]annCHEM HHKBR5969-69-71 09:10:000.5 [facility]annCHEM NLETL8976-69-43 09:10:0012[facility] HermannCHEM PANEL 2015-04-21 09:10:003.8[facility] HermannCHEM EUOHX1199-39-99 09:10:000.8[facility] HermannCHEM ACGAR4995-38-07 09:10:0011.6[facility] NurkrhlXQNYFBOMKU0189-38-32 09:10:0088.7[facility] QmqqekeBHZVNSYLOG5895-44-66 09:10:003.94[facility] TKLWLSXJJW3574-06-91 09:10:0011.1[facility] AvkfauuALYBGGXQRW8909-35-75 09:10:00 4.8[facility] GqyiwcaLZKUZIMLWY6809-98-76 09:10:0035.0[facility]annHEMATOLOGY 2015-04-21 09:10:0085[facility] LdcsvhyCGMBNPDWHJ4109-79-53 09:10:00 Test Item Value Reference Range Interpretation Comments MCH (test code = MCH) 28.3 pg 27.0-31.0 [facility] XuizfxiZGCNJZVSRK2213-71-63 09:10:0031.9[facility] HermannHEMATOLOGY 2015-04-21 09:10:0017.7[facility] SlasdbfSEHMDJINOP7181-98-91 09:10:0010.2[facility] PexidiqKOOIMPLWNF5351-06-12 09:10:0029.8[facility] MdowioxSPGPABQKBJ4980-25-18 09:10:005.3[facility] IigdntnNXAYTMIFNC0027-74-58 09:10:003.2[facility] CIOSDFIAOJ5860-89-94 09:10:0061.4[facility] JadeqbkYRAZGYYNTD1319-98-05 09:10:00 3.0[facility] RiwswupUSTRZZDHDU9042-03-70 09:10:001.4[facility] HermannHEMATOLOGY 2015-04-21 09:10:000.3[facility] VycesdwQZHZCYHMGH3636-77-52 09:10:000.0[facility] OoptkbxUTCDZZOSOY4080-16-22 09:10:000.3[facility] AkasiebPNYTDHXSTR7926-69-58 09:10:000.2[facility] DwcypnfLQMWSX9710-58-74 09:10:002.04[facility] HermannLIPIDS 2015-04-21 09:10:0014[facility] LeiritqHMUVNJ5091-68-31 09:10:0033[facility] QNYYCS0453-92-23 09:10:0092[facility] SkqejepQNMBKI3560-15-61 09:10:0045[facility] UzvzrfdFPKHZY1273-31-70 09:10:0070[facility] HermannSPECIAL ZYHIUJUZK2566-23-17 09:10:005.7[facility] HermannCARDIAC QFZRMBS2995-61-87 22:04:0066[facility] CHEM DKGRP9083-30-54 22:04:0038[facility] HermannCHEM MIRYE3776-08-91 22:04:0020 [facility]annCHEM ZMGNA1672-63-09 22:04:53925Qartknyi HermannCHEM PANEL 2015-02-02 22:04:0016[facility] HermannCHEM OAOIP0057-89-00 22:04:000.7[facility] HermannCHEM TDEFW1418-08-14 22:04:003.4[facility] HermannCHEM NRWFT5513-38-29 22:04:73612Orznnmse HermannCHEM AIKRZ1349-60-70 22:04:003.4[facility] HermannCHEM WCQYP0098-46-89 22:04:008.3[facility] HermannCHEM NQTNN0764-91-71 22:04:0025 [facility]CHE[facility] TGYGQ0250-98-37 22:04:008.7[facility]annCHEM PANEL 2015-02-02 22:04:0013[facility]annCHE[facility] BYMLA8084-91-12 22:04:87274Onhnwogu HermannCHEM FZHFC9627-10-40 22:04:001.9[facility]annCHEM MJHBJ5752-48-19 22:04:22049Giqwiubv HermannCHEM OIBPB1718-55-74 22:04:000.7[facility]annCHEM STTGS0054-05-51 22:04:007[facility]annCHEM EVJWE3599-48-22 22:04:004.9 [facility]annCHE[facility] QOGTW9487-28-75 22:04:0010.4[facility]annHEMATOLOGY 2015-02-02 22:04:0016.8[facility] FufcmpmITORSYUGOU9188-24-11 22:04:21758Rqgdqfjy AguiriwMRRDIAEYWO9430-92-02 22:04:008.2[facility] YeibkgsXXORJXGCHA4528-32-24 22:04:005.1[facility] AlvbxuhNVJXAKHLIQ7296-53-46 22:04:0011.3[facility] PRYNGIHIAD2608-87-90 22:04:0036.3[facility] CltqbapJYENENCTCV7392-45-02 22:04:00 31.2[facility] KamddxlXTXHGEXORW3548-57-59 22:04:004.04[facility]annHEMATOLOGY 2015-02-02 22:04:0089.8[facility] DzoeukoBHDHZZAVBA2249-80-29 22:04:00 Test Item Value Reference Range Interpretation Comments MCH (test code = MCH) 28.0 pg 27.0-31.0 [facility] QilbfztWQNJPKGAWW4486-51-71 22:04:003.3[facility]annHEMATOLOGY 2015-02-02 22:04:000.6[facility] BwyovavDCNJFBSNDX8128-06-39 22:04:000.4[facility] VikffisJLUMMGPCIC7554-77-29 22:04:000.0[facility] KlgazeaOYURXBOQNP7324-15-46 22:04:0065.9[facility] DroqybmANVUXLKHHC9987-68-24 22:04:003.3[facility] MEECPOXWYQ1534-39-10 22:04:007.0[facility] QjszxbdBIJTVMBIBT7009-20-51 22:04:001.2 [facility] EtgegruDEBLDRJNMB2468-25-35 22:04:000.2[facility]annHEMATOLOGY 2015-02-02 22:04:0023.2[facility] HermannCARDIAC QWVZQLL3791-70-21 03:14:24638 [facility] OxpukecLDZWBJJDGJ1242-34-99 03:14:001.01[facility]annHEMATOLOGY 2014-07-07 03:14:00 Test Item Value Reference Range Interpretation Comments PTT (test code = PTT) 27.2 s 22.9-35.8 [facility] JpzzxzgJYOHJVHKGK4898-34-15 03:14:00 Test Item Value Reference Range Interpretation Comments PT (test code = PT) 13.3 s 12.0-14.7 [facility]annCARDIAC JMEMNAY4755-71-49 02:57:000.8[facility]annCARDIAC AJNGQPZ9264-70-17 02:57:61883Unacncim HermannCARDIAC GUBGYYD4116-63-89 02:57:00 1.0[facility]annCARDIAC AIOPDMG9953-80-01 02:57:000.28[facility]annCHEM BYENJ1101-75-12 02:57:0034[facility]annCHEM YOYKI5997-22-72 02:57:57782 [facility]annCHE[facility] ZEIOZ8982-51-46 02:57:0030[facility]annCHEM PANEL 2014-07-07 02:57:0077[facility]annCHEM KDZQG4923-36-21 02:57:003.7[facility]annCHEM EVWXU5419-48-42 02:57:0018[facility]annCHEM ALNEB5755-15-25 02:57:0018[facility]annCHE[facility] PVACT8017-51-70 02:57:008.5[facility]annCHEM NXKUT3066-17-10 02:57:008.0[facility]annCHEM IKWTR9610-10-76 02:57:0010.1 [facility]annCHE[facility] UUSWX4335-97-33 02:57:000.4[facility]annCHEM PANEL 2014-07-07 02:57:004.3[facility]annCHEM KQPDC4435-54-09 02:57:0021[facility]annCHEM BJGRX2215-77-31 02:57:000.9[facility]annCHEM MPZUT4458-05-07 02:57:09093Ntevngbe HermannCHEM GONTZ9676-77-75 02:57:0044[facility]annCHEM YGPTY1650-68-38 02:57:07133Aanzazwp HermannCHEM VVYOK8288-75-93 02:57:002.1 [facility]annCHE[facility] NJWPK3257-49-34 02:57:004.1[facility]annHEMATOLOGY 2014-07-07 02:42:000.4[facility] YlkpknoOUUEFRXCBT4579-55-00 02:42:000.2[facility] YmpzvxkCLCSVAQTGM6875-14-19 02:42:000.0[facility] SxgiahsKVZKZJLBYQ6743-82-60 02:42:006.4[facility] SzxkzznZEMQKWCIGQ7425-51-63 02:42:002.6[facility] RICZLNNGGK1406-71-71 02:42:000.3[facility] FtexiwfRBSJPUKQBE5890-65-27 02:42:004.5 [facility] WnemfmsZVGTILMLFY3231-13-60 02:42:001.5[facility] HermannHEMATOLOGY 2014-07-07 02:42:0068.3[facility] NbpgjwzFBARMCXBSI1088-84-15 02:42:0022.4[facility] VbemwoqOTEMGMUPBF0715-77-54 02:42:0033.7[facility] GnvazpuZOPQOZFNAS6185-37-59 02:42:0035.8[facility] LttfzzwIMTHADVNQM5731-39-69 02:42:0080.3[facility] KQZEVISDXB1882-05-76 02:42:00 Test Item Value Reference Range Interpretation Comments MCH (test code = MCH) 28.7 pg 27.0-31.0 [facility] KkpvjkaPSUKLCFSZT0740-80-17 02:42:66943Tfhynfgw HermannHEMATOLOGY 2014-07-07 02:42:0010.1[facility] KdjyynxXOLNXXJUBK3796-11-09 02:42:0018.6[facility] CwranguMPVSDERIQL4079-83-04 02:42:004.19[facility] QhtpbidNZUYQXKUHK6460-97-91 02:42:0012.0[facility] RdxapvwEHQFUSTMID1377-41-29 02:42:006.5[facility] HermannCHEM UCYDB8383-79-08 12:54:0034[facility]annCHEM JOMEE6805-66-26 12:54:0024 [facility]annCHEM GUMXF8627-49-50 12:54:80511Wshpfpiq HermannCHEM PANEL 2014-04-02 12:54:004.2[facility]annCHEM JWJOD9933-76-67 12:54:001.24[facility]annCHEM FXFUF6687-82-18 12:54:36718Yxcshgkt HermannCHEM CGNWJ5875-81-42 12:54:002.1[facility] HermannCHEM WHQSP2726-64-28 12:54:0011.2[facility] HermannCHEM VQPOY3910-02-24 12:54:0028[facility]annCHEM UZFSO3084-03-22 12:54:22696 [facility]annCHEM ZGAOW9335-25-50 12:54:0021.0[facility]annCHEM PANEL 2014-04-02 12:54:0033.0[facility] HermannBLOOD BANK EODIQER5325-62-55 17:25:00 Negative (03/30/14 11:25 AM)[facility]annBLOOD BANK TAIUJGA9125-38-76 17:25:00Product available (03/30/14 11:25 AM)[facility] HermannELECTROLYTES 2014-03-30 17:25:0010.7[facility] LcqqboeVUHBSSULRMBR7711-31-01 17:25:0034[facility] OuvzfdaLBURWBIJPJOV4852-09-87 17:25:07464Ixtdgoey HinqwswKXANCJKXRLIV5524-42-68 17:25:002.1[facility] VbbkjvzMSJOTHXVICAY5259-70-39 17:25:0034[facility] AUFTGRWVSDPE9723-49-48 17:25:003.7[facility] EmtjigiNUUGHRKTRHXL1172-31-89 17:25:0030[facility] BhprkuxCTBFSZRNTRML6156-62-91 17:25:76816Snhhesia Reading BGWKEYSSJKVF1105-42-03 17:25:008.6[facility] LtzhwndEWGIWVRGYBWI1580-20-61 17:25:0088[facility] LliurbgKWYPSVEDYT5311-21-01 17:25:00 Test Item Value Reference Range Interpretation Comments PTT (test code = PTT) 27.7 s 22.9-35.8 [facility] HdkivvsOEKLUVZQQJ9724-79-75 17:25:003.57[facility] HermannHEMATOLOGY 2014-03-30 17:25:004.9[facility] VpkxhvzRBKTIEVLUG6752-75-70 17:25:0030.9[facility] OpxcaopTZBMMQMFLE6324-29-93 17:25:0010.1[facility] CmsaenjUVKNGQUHUO0912-94-95 17:25:00 Test Item Value Reference Range Interpretation Comments MCH (test code = MCH) 28.2 pg 27.0-31.0 [facility] FcxhlraQVPNLPXNXP1365-97-63 17:25:0086.5[facility] HermannHEMATOLOGY 2014-03-30 17:25:0032.6[facility] ZjsrqkeMIWJXIKVFW0406-60-87 17:25:0018.3[facility] KdodefsCZCIXFZARP3659-17-32 17:25:009.1[facility] DsleswlAOVDYSZDGP0050-75-82 17:25:25668Itxzypjj EangpdxTOVRRBOOAE5194-23-52 17:25:003.5[facility] GDZJYUVTLJ8246-75-53 17:25:005.1[facility] UnztrxbFQXQJTXGAF3477-38-98 17:25:001.2 [facility] PavfkyvRGGRLAEUZP4925-45-06 17:25:003.3[facility]annHEMATOLOGY 2014-[facility]-30 17:25:000.2[facility] RanskotWNBKXAFMMY0732-43-99 17:25:0023.7[facility] TtjmpmrHGRWCTXDWU4397-02-06 17:25:0067.4[facility] KvtykivWQORHYJSVP8267-69-15 17:25:000.3[facility] BeyhnhgFLMMSJUQSF6872-85-82 17:25:000.3[facility] PXFDJHULWO0001-51-38 17:25:000.0[facility] SijssrmXFXXDTNBAS1331-88-58 17:25:00 Normal (03/30/14 11:25 AM)[facility] VywetfuFYSWGYGQFC5308-09-39 17:25:00Normal (03/30/14 11:25 AM)[facility] IviynoxBYJKWHNBAM1261-00-88 17:25:001.08[facility] VluibjiNBKKTWCNAS6714-23-37 17:25:00 Test Item Value Reference Range Interpretation Comments PT (test code = PT) 14.1 s 12.0-14.7 [facility] TvnjpmxBQCWPXVMWFYH8517-57-23 10:15:0010.4[facility] HermannELECTROLYTES 2014-03-05 10:15:0038[facility] JdbpffcEVTEPOGYMLCL9480-02-93 10:15:0031[facility] FytgskjDJXGTMLVIDJF5777-60-35 10:15:008.4[facility] OpzokreJIWEGAMZCNHX9561-03-06 10:15:14346Dggneijr BytrwfuPXCWJFIAOUWE8707-90-96 10:15:003.4[facility] YZVEWTFNVKVV4523-24-20 10:15:48531Xfafciim QbruubhBGKROOJUOZJD3646-63-42 10:15:0013[facility] InzqjwnQECNVWZHHCQF3324-93-36 10:15:001.9[facility] GIKKJFBSHWPI0437-86-76 10:15:0080[facility] ZbziyysVRHAOXETHS2060-12-66 10:15:00 6.9[facility] YojdputCJPMTKNYDN4561-61-37 10:15:000.8[facility]annHEMATOLOGY 2014-03-05 10:15:003.8[facility] BfgorwdDGOAYECNWM6735-63-35 10:15:000.4[facility] ZefcolbMOMDIFRHBM1489-38-16 10:15:000.2[facility] RfjysmoPZWJBJYOGI3890-46-29 10:15:0023.4[facility] BiyptplWSFKDGWJIE2730-20-77 10:15:0065.1[facility] VXTNIYANJT2568-36-35 10:15:001.3[facility] UhrayuzEDOMFKYVYR2537-59-09 10:15:003.7 [facility] AvgmhtiIAYPNBNJQV8974-03-06 10:15:0032.3[facility]annHEMATOLOGY 2014-03-05 10:15:0016.7[facility] CxcrbhzBUQWQUWWIP0317-23-00 10:15:0093[facility] JoqoyahEHFFDBEUED7978-46-05 10:15:009.2[facility] DeplaimQOFRZFINFM6225-55-35 10:15:00 Test Item Value Reference Range Interpretation Comments MCH (test code = MCH) 29.2 pg 27.0-31.0 [facility] MoytjauIWKPIJUSFE9435-57-95 10:15:005.7[facility]annHEMATOLOGY 2014-03-05 10:15:0090.6[facility] WhycdvvTYDZAXTFLO0958-57-83 10:15:0034.5[facility] NkmmzjfCFWPXRCREC6105-61-93 10:15:003.81[facility] RyxvskhTSPPEXICUX6622-80-37 10:15:0011.1[facility] YryiauhBVMLQDSTYR8173-87-60 19:39:00<0.2[facility] QJZSPXVHEI2490-35-70 19:39:00<0.2[facility] ZqtxzmqKXXOBTJYJJ8039-92-43 19:39:00Negative (03/04/14 2:39 PM)[facility] LzrcbfsIEVYAUFKWW5798-14-32 19:39:00 <0.2[facility] IulmaxfBOXTNGIOAO2876-66-38 19:39:00<0.2[facility] VBTDCEYLQE0211-50-01 19:39:001:40 *ABN*(03/04/14 2:39 PM)[facility] XULQVSEFOL0389-87-22 19:39:00<10[facility] YtmuxjkZHNGLQBZQH6585-74-33 19:39:00 Positive *ABN*(03/04/14 2:39 PM)[facility]annSPECIAL TZXYUTPBK8984-50-76 19:39:0019[facility] HermannTHYROID NDMZO5679-50-35 19:39:004.580[facility] CHEM NDAXS2525-07-67 10:10:44645Rhnczqed HermannCHEM KMHJX4347-38-91 10:10:003.5 [facility]annCHEM KJSYT1795-08-34 10:10:43081Kilcksvk HermannCHEM PANEL 2014-03-04 10:10:0029[facility] HermannCHEM OQJEF8247-02-64 10:10:001.7[facility] HermannCHEM CHADT5469-90-99 10:10:0012[facility] HermannCHEM WVNIN7833-93-82 10:10:0084[facility] HermannCHEM OGCKP0258-08-34 10:10:0010.5[facility] YFEFFOBYFW7849-38-14 10:10:001.4[facility] AcrjsobGGDHDPOSTY2474-39-50 10:10:004.3 [facility] OljiefsNJRUIIDDDR6488-59-36 10:10:000.7[facility] HermannHEMATOLOGY 2014-03-04 10:10:004.0[facility] DynrzeyJAZGFQPHSY3626-33-02 10:10:000.3[facility] SzksbogOLYPLTEWEZ7179-27-61 10:10:000.4[facility] GilotwhYLQYRAJAZL4603-75-92 10:10:005.7[facility] DwtyxwyTVDSWBYUFS9643-45-60 10:10:0022.2[facility] WQNTBNCNUZ3143-04-82 10:10:0067.4[facility] OngehwjUSHYJKYYAK9991-96-86 10:10:00 10.4[facility] KlydvmjJFXSCIFQZU3268-63-39 10:10:003.50[facility]annHEMATOLOGY 2014-03-04 10:10:006.3[facility] CeawathEEZXCKCKGN3169-87-52 10:10:0032.9[facility] EkctuqpEPYXYEIJRE4063-78-68 10:10:0083[facility] WpuaqjpVOTWMJYJYC8075-47-03 10:10:0016.4[facility] GkuudbeBFOOFYJBIP2111-77-53 10:10:008.8[facility] NFRTINAOCC8656-67-58 10:10:00 Test Item Value Reference Range Interpretation Comments MCH (test code = MCH) 29.5 pg 27.0-31.0 [facility] SuocjixNBDADLJPFQ1850-00-57 10:10:0089.7[facility] HermannHEMATOLOGY 2014-03-04 10:10:0031.4[facility] HermannCHEM VUKRY7197-84-79 10:10:0044[facility]annCHEM XFZFL5066-74-25 10:10:008.3[facility] HermannCHEM LNIRO5827-06-16 11:05:0044[facility] HermannCHEM LGCUT1377-87-96 11:05:0030[facility] HermannCHEM KHZWJ3860-79-03 11:05:008.5[facility] HermannCHEM CUXXM0588-63-98 11:05:001.7 [facility]annCHEM VFTEC6744-47-79 11:05:0013[facility]annCHEM PANEL 2014-03-03 11:05:0090[facility] HermannCHEM ORYFC8966-12-05 11:05:19312Oafuwkgq HermannCHEM FMFXO0042-11-17 11:05:003.6[facility] HermannCHEM GNGJQ1090-74-65 11:05:64365Bkiasyme HermannCHEM RBQLM8508-53-43 11:05:0010.6[facility] LTZVTZOFZJ8457-88-10 11:05:009.3[facility] UgtepotCWWJGCTQLZ0699-19-77 11:05:00 3.54[facility] QljmuxcCXSNCFROLJ7591-43-66 11:05:006.2[facility] HermannHEMATOLOGY 2014-03-03 11:05:0010.4[facility] EmrrxcmEUAIJPODVZ7092-15-75 11:05:0032.0[facility] DkirmleCYJVFPYYUJ8751-52-78 11:05:0090.5[facility] DeunccrEGCOPPQXOO4172-37-31 11:05:00 Test Item Value Reference Range Interpretation Comments MCH (test code = MCH) 29.4 pg 27.0-31.0 [facility] CcftfyhCUDQYFVVPR2391-53-71 11:05:0017.2[facility] HermannHEMATOLOGY 2014-03-03 11:05:0032.5[facility] OpvgwytNZTRDSTZBU9416-01-50 11:05:18757Dyogfvgl CsigfxjIOJTVBTHSF5199-45-91 11:05:000.0[facility] CujybvxHBBTTJJDBC3453-01-55 11:05:000.3[facility] VbeillkZTCCKVGDWD0368-09-20 11:05:001.3[facility] SCDCVRZJZU6215-94-49 11:05:004.2[facility] PiuoyvcKXKFFBEGYE8642-78-20 11:05:000.3 [facility] BpmunjuALKDQMTPOQ2959-29-20 11:05:000.3[facility] HermannHEMATOLOGY 2014-03-03 11:05:005.4[facility] BbfnwtuTXLIQTXWTZ7411-40-83 11:05:005.2[facility] XgztdwoIYZYGAJBXZ3188-53-04 11:05:0020.6[facility] DasmnzbHLAPANQALR9741-15-73 11:05:0068.5[facility] OmupsplUOQAMSBTPA2657-62-65 12:19:000.0[facility] ANEMIA VTRNZ9623-69-64 10:35:25159Nndssgxm HermannANEMIA HMOUD9824-01-89 10:35:0044[facility] HermannANEMIA QLMMG7051-01-92 10:35:34440Jliginbm Noel ANEMIA PJUNM6613-12-24 10:35:0017[facility] HermannANEMIA LTWBN2731-32-47 10:35:00 89[facility] HermannCARDIAC FKIEZRS0802-63-06 10:35:17472Vldbjfmx HermannCHEM GJPXJ2897-23-59 10:35:002.0[facility] HermannCHEM KBVRW6763-10-78 10:10:001.7 [facility] JjgparvISRZFBCRWN4898-29-43 10:10:000.0[facility] HermannCHEM PANEL 2014-02-27 09:30:001.4[facility] JbulfroDEVSKT8757-38-55 09:30:001.89[facility] ZusgfhtJJJMKQ7474-44-18 09:30:0023[facility] IxadtqqTFVEPH5757-12-03 09:30:0037 [facility] YbucsznHMWHKX3903-51-68 09:30:0070[facility] UghlvuxHUCJFO7027-90-49 09:30:0050[facility] EekakevSMUBEU5056-30-52 09:30:0010[facility] HermannVIRAL - TNATEAUD2007-09-84 23:00:46Negative 12(02/26/14 6:00 PM)[facility] HermannVIRAL - UMHOYXBZ4399-61-45 23:00:46Negative (02/26/14 6:00 PM)[facility] HermannBACTERIAL - ALCYOBEE3894-25-48 22:25:00Negative (02/26/14 5:25 PM)[facility]annCARDIAC ORMTAOZ1974-54-01 18:30:000.46[facility]annCARDIAC ZTGNZZC8826-65-79 18:30:00 74[facility]annCARDIAC DHMOFST9386-59-92 08:15:000.37[facility]annCARDIAC FBPGXTK6359-40-74 08:15:07726Kpdhyeyj HermannCARDIAC WHGOYRE9565-06-72 08:15:00 1.6[facility]annCARDIAC FFZXACJ9676-38-05 08:15:001.6[facility] HermannCHEM MYMNJ7778-72-67 08:15:000.9[facility] HermannCHEM NIZLB5485-53-47 08:15:009 [facility]annCHEM PYZQT9414-87-89 08:15:003.7[facility] HermannCHEM PANEL 2014-02-26 08:15:0013[facility] HermannCHEM CIXQS9577-55-73 08:15:0020[facility] HermannCHEM BYIOC3968-95-98 08:15:0070[facility] HermannCHEM DXITH4267-06-38 08:15:000.8[facility] HermannCHEM HCRIY6868-79-51 08:15:006.9[facility] HermannCHEM XQYVE2794-73-11 08:15:003.2[facility] HermannCARDIAC AYSBNRI8215-51-06 02:31:36149 [facility]UR[facility] AND YSYPV2395-21-16 02:10:00None Seen (02/25/14 9:10 PM) [facility] VYDDB1440-26-99 02:10:00None Seen (02/25/14 9:10 PM) [facility] ALDKH4256-43-53 02:10:00Yellow *NA*(02/25/14 9:10 PM) [facility] WGWBQ9032-23-54 02:10:00Negative (02/25/14 9:10 PM) [facility] VSBMA9833-55-43 02:10:00Negative (02/25/14 9:10 PM) [facility] LWXEZ8982-65-35 02:10:00Negative (02/25/14 9:10 PM) [facility] SHQSC2741-16-01 02:10:00Negative *NA*(02/25/14 9:10 PM)[facility] BTLHP6266-12-27 02:10:00Negative *NA*(02/25/14 9:10 PM)[facility] VJSNE9437-79-73 02:10:00Small *ABN*(02/25/14 9:10 PM)[facility] CMLJY2508-46-64 02:10:000.2[facility]UR[facility] AND VFMYX3881-73-77 02:10:00Clear (02/25/14 9:10 PM)[facility] AND GXUQV5959-49-43 02:10:00 Test Item Value Reference Range Interpretation Comments UA Spec Grav (test code = UA Spec 1.015 1 Grav) [facility] GXPQJ7413-05-44 02:10:00 Test Item Value Reference Range Interpretation Comments UA pH (test code = UA pH) 5.5 1 5.0-8.0 [facility] WAGFL8830-63-83 02:10:00Negative (02/25/14 9:10 PM) [facility]annCARDIAC LYPYGBF2233-72-06 00:50:001.9[facility]annCARDIAC DZXPLBK0564-50-13 00:50:000.38[facility]annCARDIAC IXPCCSX7281-97-12 00:50:00 100[facility]annCARDIAC AMHNOHG4727-35-58 00:50:001.9[facility] HermannCHEM XUDEX6709-62-28 00:50:007.4[facility] HermannCHEM UHNXH1315-63-75 00:50:000.6 [facility]annCHEM AIDQK5796-92-78 00:50:0077[facility]annCHEM PANEL 2014-02-26 00:50:0013[facility] HermannCHEM YFWGB2884-00-93 00:50:0015[facility]annCHEM RYMHH4728-59-69 00:50:003.2[facility] HermannCHEM FMAQC1422-07-39 00:50:004.2[facility]annCHEM YLLZR3518-92-69 00:50:000.8[facility] HermannCHEM JYOAU1858-98-97 00:50:009[facility] WofrehdJPWLYXNPMA7691-08-66 00:50:000.81 [facility] HrsqsztWBXICZFEOD2229-06-86 00:50:00 Test Item Value Reference Range Interpretation Comments PTT (test code = PTT) 42.2 s 22.9-35.8 [facility] CktpkeqZMFMJJLMGU5730-65-53 00:50:001.36[facility]annHEMATOLOGY 2014-02-26 00:50:00 Test Item Value Reference Range Interpretation Comments PT (test code = PT) 16.9 s 12.0-14.7 [facility] HermannCHEM PLCBJ6855-03-60 10:30:0038[facility] HermannCHEM PANEL 2014-01-28 10:30:008.6[facility] HermannCHEM SUXAQ7105-29-68 10:30:0013.1[facility] HermannCHEM MBIVC1135-67-97 10:30:0028[facility] HermannCHEM NKUMJ4084-17-31 10:30:0024[facility] HermannCHEM GELPZ8865-74-33 10:30:0099[facility]annCHEM ONXBL6915-13-88 10:30:80404Dvfmhgbo HermannCHEM UZXBF1414-25-80 10:30:004.1 [facility]annCHEM JXHHH9721-08-61 10:30:54343Pybitzcp HermannCHEM PANEL 2014-01-28 10:30:001.7[facility] HermannCHEM WXMZA9990-64-26 10:30:002.1[facility] HermannCHEM DNPUQ2223-12-50 10:30:002.6[facility] IftzwgeMBOEANMHYF8569-88-05 10:30:005.0[facility] AazekutLOOCNSVTIH0167-13-51 10:30:000.4[facility] ORWESYLNIR7240-60-51 10:30:000.1[facility] MkzhgzqLRJFOVXJGC9652-30-26 10:30:000.5 [facility] FhnhpodZGBSBVGZDB1304-18-95 10:30:001.8[facility]annHEMATOLOGY 2014-01-28 10:30:0024.7[facility] LzmvaqdKCCYZGPJXK3380-32-31 10:30:0066.4[facility] EjkyfleNJNZCUVRRL2144-74-10 10:30:001.7[facility] WkkqblaOIRVYCJKUI7348-83-50 10:30:006.8[facility] ZohxhitYRDMVRWXBX6074-60-74 10:30:0010.3[facility] CABCRURXPJ6365-51-60 10:30:0079[facility] FmqtoppCLIKEGWEUH3757-25-82 10:30:0011.3 [facility] UkuvrzkSTSYNPGQCR6029-60-66 10:30:007.5[facility]annHEMATOLOGY 2014-01-28 10:30:003.84[facility] BdvxtybPSVHRAQEQO3147-44-39 10:30:0014.1[facility] FngsqnzUSDJCNSUOX1419-65-62 10:30:0034.2[facility] VtaodgqABYWBXMYSD1270-90-83 10:30:0089.0[facility] WkhelwzFLJBSFIXBP7322-69-42 10:30:00 Test Item Value Reference Range Interpretation Comments MCH (test code = MCH) 29.3 pg 27.0-31.0 [facility] PtwudlmKDSYELKNPA8927-96-16 10:30:0032.9[facility] HermannCHEM PANEL 2014-01-27 19:10:002.0[facility] HermannCHEM CMKIF0415-14-86 19:10:0035[facility] HermannCHEM OFDZX8105-76-05 19:10:008.3[facility] HermannCHEM WHRYN9510-81-55 19:10:0029[facility]annCHEM LXLWU3792-60-87 19:10:008.3[facility] HermannCHEM RQBQU2223-28-25 19:10:68348Lsutgres HermannCHEM UZPCY9782-54-83 19:10:004.3 [facility] HermannCHEM BRASK9787-93-94 19:10:87584Qrropibv HermannCHEM PANEL 2014-01-27 19:10:0026[facility] HermannCHEM OSJXS2714-78-37 19:10:001.8[facility] HermannCHEM XDZGJ7204-68-00 19:10:15013Mwmhopsr HermannCHEM NMQFK0013-35-25 10:00:001.5[facility] BqcwtcwVVCLBUNXILZZ7216-20-96 10:00:0011.4[facility] SSHGPNMTQUGP0274-89-17 10:00:0035[facility] EabiiftGHCJNHZUUPKH5001-58-65 10:00:00 104[facility] XpcqokiLAJNDIXHLGLK9100-79-61 10:00:004.4[facility] XDQKOQBJODLJ8177-01-47 10:00:20871Iukfewvy BolltdlGXGZXAXAQDSY2813-13-98 10:00:001.8[facility] LpvlxnjTOLNYURUICYL9872-39-05 10:00:008.6[facility] JUFNLTTXJZRH4741-42-53 10:00:0028[facility] RtnhchxPLXEXVOHXYVW9487-59-92 10:00:00 26[facility] AibrzexRUYHOHPYPUPI8147-53-57 10:00:86870Qkqyadet HermannHEMATOLOGY 2014-01-27 10:00:00 Test Item Value Reference Range Interpretation Comments MCH (test code = MCH) 28.8 pg 27.0-31.0 [facility] IboivcpCXKMVQQITS7213-03-52 10:00:0032.0[facility]annHEMATOLOGY 2014-01-27 10:00:0014.2[facility] XmqexjuVVTSKBXGPS5041-79-57 10:00:009.8[facility] PlkjjriPGDRRYSRUD6883-69-12 10:00:0071[facility] DfmxbupHAEZPCZUAE0494-77-28 10:00:004.06[facility] MjaugffSWXKIWANBX5803-40-71 10:00:006.2[facility] ECDYNQRTFV2622-58-20 10:00:0036.5[facility] DxgwylbYKOUQHLIGR4388-85-97 10:00:00 90.0[facility] NbdjousQZBNXLMTDX0767-76-09 10:00:0011.7[facility] HermannHEMATOLOGY 2014-01-27 10:00:001.6[facility] QsliimqJPPRURRMCY4142-42-02 10:00:004.2[facility] XzibochCWNYQWLXJW2133-67-69 10:00:000.3[facility] JgdvrpiAPMHHSNCDO5396-93-33 10:00:000.1[facility] ShdyzuxZESHNGAEPK3051-15-38 10:00:000.2[facility] PXQARUWRXF7220-86-63 10:00:000.0[facility] BexklfnMSBIVPMBYS6291-55-39 10:00:00 26.0[facility] HhmpnwlYTZPWCGKPH1741-25-07 10:00:0068.2[facility] HermannHEMATOLOGY 2014-01-27 10:00:001.5[facility] NcckmuwQUUUBOIGCR6667-81-57 10:00:004.0[facility] GbvjbsxJQDBWG9385-81-95 10:00:003.36[facility] BqegsonEERZPU0260-81-46 10:00:0023 [facility] ZeviiifLTRNJL0764-77-04 10:00:0069[facility] EuxtrylSXDEYU7513-07-80 10:00:0039[facility] RynkpixCBOMHG1790-67-28 10:00:80595Ecugshmb HermannLIPIDS 2014-01-27 10:00:09815Lcwodagb YkuadhiGCWOGAHEQY8208-72-19 10:00:001.2[facility]annURINE AND DPGBU0588-52-61 14:15:00<=1.0[facility]annUR[facility] AND STOOL 2014-01-26 14:15:00<1[facility]UR[facility] AND DWYFB0626-18-84 14:15:001.005 [facility] FQFMA5115-30-02 14:15:00Clear (01/26/14 9:15 AM) [facility] TGOBG6529-28-86 14:15:00Colorless *NA*(01/26/14 9:15 AM)[facility] AND MXFYV2442-43-23 14:15:007.0[facility]UR[facility] AND JRYGD6611-54-94 14:15:00Negative (01/26/14 9:15 AM)[facility] AND PXGHL3866-54-63 14:15:00Negative (01/26/14 9:15 AM)[facility] AND LQILC9748-77-00 14:15:00Negative *NA*(01/26/14 9:15 AM)[facility] AND MRXFD4787-07-70 14:15:00Negative (01/26/14 9:15 AM)[facility] HermannANEMIA STUDY 2014-01-26 14:00:0010.9[facility] HermannANEMIA SXWNM9362-47-04 14:00:76097 [facility]annCARDIAC BEDFXFM7563-39-17 14:00:43119Dhynxrgh HermannCARDIAC SXBCFDT5511-76-04 14:00:000.28[facility] HermannCARDIAC SJHMXKH2637-23-06 14:00:00 88[facility] HermannCARDIAC KQKNLTV1925-10-80 14:00:003.0[facility]annCARDIAC AOCSLCN7323-61-79 14:00:002.6[facility] HermannCHEM MXBGU7576-97-70 14:00:002.6 [facility] HermannCHEM NVLLD7751-16-51 14:00:000.5[facility] HermannCHEM PANEL 2014-01-26 14:00:000.9[facility] HermannCHEM JLPJP7938-45-20 14:00:004.1[facility] HermannCHEM KUDYX9433-56-83 14:00:000.7[facility] HermannCHEM VUIEM4692-27-37 14:00:000.2[facility] HermannCHEM ECDHU9456-52-40 14:00:0015[facility] HermannCHEM ZNPOJ3584-11-24 14:00:0078[facility] HermannCHEM UTDPQ5799-62-46 14:00:007.6 [facility] HermannCHEM GCZWM1494-02-56 14:00:003.5[facility] HermannCHEM PANEL 2014-01-26 14:00:0017[facility] BbkuhltJGWJQQASGW8297-76-52 14:00:0084[facility] UpomqecLWORFNJXDL1531-10-64 14:00:009.8[facility] LrqnlreDTRXSAUTNG4167-17-92 14:00:006.6[facility] IyoaxapDZANWRBLFZ9495-92-93 14:00:00 Test Item Value Reference Range Interpretation Comments MCH (test code = MCH) 29.2 pg 27.0-31.0 [facility] ZaotuiqEWHCZTFQQW1665-29-62 14:00:0032.7[facility] HermannHEMATOLOGY 2014-01-26 14:00:0014.3[facility] WyimbfcEDVCZOXDQS9109-25-31 14:00:0089.2[facility] YmbbniqQGDEKRFDAP8900-60-71 14:00:0013.2[facility] GnocnsgXGWWSDVNDC0800-77-47 14:00:0040.4[facility] YiqxrdeVQXPKJSWAP7336-87-85 14:00:004.53[facility] KPLBUIHKGO1674-59-60 14:00:001.23[facility] HszfmayBZKJAXBYER4247-78-87 14:00:00 Test Item Value Reference Range Interpretation Comments PT (test code = PT) 15.6 s 12.0-14.7 [facility] UyuhiivBHWCZTRLMB9181-51-07 14:00:001.6[facility] HermannHEMATOLOGY 2014-01-26 14:00:004.6[facility] JhsbguoHWYAJFPUGD7718-82-53 14:00:004.4[facility] OvnncskABRCJTGORR5016-00-81 14:00:000.7[facility] VbyjbhxIRNINYXLLS0532-63-29 14:00:000.1[facility] ZwswudbKYGLRPQVKV7280-90-81 14:00:001.8[facility] YKNPJUFQWP8091-60-06 14:00:000.3[facility] WlkghzfSOHHVWVPZE6025-56-71 14:00:00 27.2[facility] NskbjlxPXCJYVPVSJ4821-14-32 14:00:0065.9[facility] HermannTHYROID EPVYC4706-54-37 14:00:002.320[facility] OfvoxaxZIFKOMSBN7360-53-87 10:30:34403 [facility] UaisrdlTVJYCFHLI3211-92-99 10:30:0084[facility] HermannCHEMISTRY 2012-02-27 10:30:003.8[facility] KyorottXZLJSSCHT4802-43-57 10:30:90853Dmjyxzzp BzulmecVZEQGCEJD4830-17-47 10:30:92643Pkkmjlom GfdnjokCLYEUIAWI2999-54-25 10:30:001.0[facility] EbqcffwHMQIXDLFJ3143-50-77 10:30:0017[facility] XUMOAGGDT8181-35-08 10:30:0084[facility] NhkuhecZWYYXYQDP8974-06-15 10:30:007.9 [facility] NcetifkDXYREBZGD0008-92-55 10:30:0028[facility] HermannCHEMISTRY 2012-02-27 10:30:0015.8[facility] FdhujqvQTINTNQPPV3035-96-40 10:30:008.3[facility] HfcxfqnHDNERBARVP2934-65-68 10:30:003.1[facility] AtzzykbDRVYYGDELW0886-16-69 10:30:0044.7[facility] AiffcuaKAJRRLCONV5667-13-24 10:30:0043.6[facility] ZMVVBNHWXW2182-96-69 10:30:00Normal (02/27/2012 05:30:00)[facility] SMHVYZNMKA2326-02-63 10:30:000.0[facility] NthbtvcLAVYGLEYLF4670-93-51 10:30:000.1 [facility] KlsgxjwPRURZXXVDQ5861-93-43 10:30:002.0[facility] HermannHEMATOLOGY 2012-02-27 10:30:000.4[facility] SastxxoMLGICDBBKT5084-70-87 10:30:000.3[facility] GtbxvjcLPHVJHENCI7975-91-22 10:30:002.0[facility] TxndhrwTAFBHBBGRT6451-75-19 10:30:00Slight *ABN*(02/27/2012 05:30:00)[facility] RvzersnDLNYVSJOZT5422-16-67 10:30:009.9[facility] RvjvpgzYNAUWORSTK4855-58-97 10:30:00 Test Item Value Reference Range Interpretation Comments MCH (test code = MCH) 31.3 pg 27.0-31.0 H [facility] XqhttirDJTIRIUQQI8807-71-70 10:30:0033.7[facility]annHEMATOLOGY 2012-02-27 10:30:0014.8[facility] EpoogzjFJGKYIMVHX9232-53-95 10:30:0034[facility] YcrjwbsHXCNLALZHF3285-94-81 10:30:0092.9[facility] JtwviqqTRBTGWGTRD0191-22-99 10:30:004.6[facility] YoklhdsTJPEIBVZYC7631-01-52 10:30:003.40[facility] XOVFEGABQM8274-12-46 10:30:0010.6[facility] OakkyzmRDKNCMQEMN6849-07-67 10:30:00 31.6[facility] GqxsmcaDLYYYVVQB1491-36-80 21:40:27043Vyporksw HermannCHEMISTRY 2012-02-26 21:40:003.9[facility] CxyfpdwPRUQLUAVW0457-12-06 21:40:0011.9[facility] JalzyhkSFQHYVRDW7757-03-27 21:40:007.7[facility] KgfalxpBVDMZXSCX3881-26-01 21:40:77091Hgioawad GankjlqJLHEYCRWS9487-87-99 21:40:0068[facility] KLCHRLGCD2500-18-38 21:40:0026[facility] TsrxifnOFJUZRAGW8783-29-61 21:40:001.2 [facility] EdnbwtaDQNRMSJBG5931-12-62 21:40:14451Znmnpwom HermannCHEMISTRY 2012-02-26 21:40:0099[facility] NhmzkmuDUIXDOMUM6652-78-69 21:40:0031[facility] FsglafqIBBPDCVQP5744-26-15 13:56:57674Kylaseym MsdwocpDKAQARSAW2369-33-93 13:56:000.11[facility] ZjqdowfSWEMRFXJR4105-33-00 13:56:001.5[facility] QUGTUFYZR1345-24-04 13:56:001.0[facility] FnofbfsZNNKQTLEC2528-27-50 10:00:001.3 [facility] AcktabrNFKRICDAL3565-68-92 10:00:003.2[facility] HermannCHEMISTRY 2012-02-26 10:00:000.8[facility] KtazoxdIKTTCVYZT6464-07-10 10:00:0012.5[facility] YgonfvlUOSJCGHTH8722-45-88 10:00:0022[facility] GdwnkyaYZUVYPTAX4795-44-32 10:00:005.8[facility] FhomlweDDMGZJIAD7719-23-72 10:00:0020[facility] OWVRMEDOR6347-97-74 10:00:007.8[facility] SpkaiczXJZXDNJED1613-28-91 10:00:000.6 [facility] DjdqeidJSIBCDRMT7784-91-00 10:00:0030[facility]annCHEMISTRY 2012-02-26 10:00:0048[facility] UyafnfqUAFBXYMKB8645-17-24 10:00:0036[facility] ClaeaauXUKTEEDZA1446-83-45 10:00:0091[facility] UgcfgatXNNINJTOK3540-98-78 10:00:002.6[facility] WjemxviSICCSSRJA4611-70-01 10:00:0033[facility] RLYROLUCK5060-49-56 10:00:0015[facility] GlbbywlBSBVLTGSF5290-91-24 10:00:003.5 [facility] RogtoyqZHLQAUFPY2797-96-10 10:00:0099[facility] HermannCHEMISTRY 2012-02-26 10:00:001.6[facility] YxptldoBWCJWIUUR7809-80-19 10:00:35103Itahwmuz HkeznvwZXQCYEQAZ3320-01-35 10:00:005.6[facility] DexwbsuUZQSZZJNA5201-19-48 10:00:0041[facility] GellujfOTBNOCMQH0249-19-61 10:00:0039[facility] MVYZUGHKH4863-74-40 10:00:0092[facility] FfobaniXYGASCWWA6550-38-47 10:00:0098 [facility] LodesbkDISMYSZSW0378-77-60 10:00:002.51[facility] HermannCHEMISTRY 2012-02-26 10:00:53887Blhkblnl AjrkihsDCRULKZYT9675-45-98 10:00:000.10[facility] EqhcmggCWPWJQDAL7811-61-40 10:00:001.7[facility] TagwofoTAHTFMSZT2824-26-00 06:15:000.4[facility] NqnyxzlHGSTRJVKX7093-26-90 06:15:67805Htxxqcba Reading UEAUTANLQ6285-54-30 06:15:0013[facility] UwpzhlcOIXCQVKPW4467-79-21 06:15:0042 [facility] UnomzxbYICVTOYZY3808-88-80 06:15:001.95[facility] HermannCHEMISTRY 2012-02-26 06:15:0082[facility] OphrfssNJXOAUTYS6618-40-87 06:15:76981Dyhlgmpx UaezswuUMKAPKIFI0425-27-02 06:15:000.09[facility] GgawcspBLKEUFZDF1339-95-78 06:15:001.1[facility] HermannBEDSIDE GLUCOSE XGUKYJW3487-94-84 16:28:71908Jzdhddkf HermannBEDSIDE GLUCOSE BLRBRYL5417-94-71 11:12:40753Vqxalugp HermannBEDSIDE GLUCOSE MGHCBCB8560-89-23 02:31:93934Okocyedw AylfhzzZSGJMGRQG5705-40-93 07:08:0014.5[facility] GhkywbaVREFWTCOX9346-34-39 07:08:63417Hffiqlxo Noel GBCKHMYRN8953-99-90 07:08:001.3[facility] TkrpbtrOLXJWRPGS4267-01-73 07:08:0025 [facility] EjvtdgrCGIHNBXXG9606-66-34 07:08:34987Wcdjdjus HermannCHEMISTRY 2011-12-07 07:08:008.7[facility] VomkaieFLXJZMVLE9892-19-29 07:08:0031[facility] WuyybxoEGEPLGNTI9541-09-60 07:08:004.5[facility] RztzfuqYOCMYOECR8987-22-37 07:08:98295Qhtxvgex DgtxujbYRBSZYZICD1641-84-85 07:08:0013.2[facility] VPZKXMLHFA2557-87-07 07:08:0031.9[facility] UfqtwmlPEQMIGQBCQ8656-34-85 07:08:00 3.40[facility] AkgriznFFRDSQOFKN4430-25-83 07:08:0010.6[facility] HermannHEMATOLOGY 2011-12-07 07:08:0093.7[facility] EuyfjwgQRFQFOAAHV3189-64-56 07:08:00 Test Item Value Reference Range Interpretation Comments MCH (test code = MCH) 31.1 pg 27.0-31.0 H [facility] GarxqurWQDHJMDSEB5792-51-42 07:08:73100Yuzofuea HermannHEMATOLOGY 2011-12-07 07:08:0033.2[facility] WlxlmafAIZVWSBEGX1646-16-98 07:08:0017.0[facility] BjpsyziPYNADMRZWJ3276-69-65 07:08:009.4[facility] BsvpoxjIYGVXDYIVJ5972-78-63 07:08:000.8[facility] JqavgilDZWQIFQNWT2142-47-28 07:08:000.0[facility] TRRPFFJMDJ8630-63-07 07:08:000.8[facility] JdhyxudEVAJUBRPMO6302-02-35 07:08:000.0 [facility] DwetgqoVNMPDPFJGJ4441-33-61 07:08:0088.5[facility] HermannHEMATOLOGY 2011-12-07 07:08:005.7[facility] WqqjgxoETBKCGRDIK6117-33-14 07:08:005.8[facility] RwbylknTEKQFSBEBO9386-20-28 07:08:000.0[facility] NvfkipwLKXUNQZBTG6356-16-84 07:08:000.0[facility] AvluvamAHBJAVYIRW3262-85-43 07:08:0011.7[facility] WTJOOPFHD8077-03-73 05:10:0014.0[facility] ObkjfhkHKLAFKPGE7870-03-99 05:10:004.0 [facility] FbcggebEPKPKUEUD1951-10-20 05:10:33728Svyhxmur HermannCHEMISTRY 2011-12-06 05:10:0028[facility] NbfpgvwWQTEVLUJK6028-71-33 05:10:82259Uzkvyrce GelmcyiYCIRUDVAR7572-34-60 05:10:008.1[facility] HcjwgpjKBMNPCXUQ6216-80-04 05:10:76371Cikxfump LdjdfdaWCIQGVYTB6651-34-17 05:10:0028[facility] LJZULGLDR2943-56-06 05:10:001.3[facility] VszylsuZQKISQTMD0773-11-45 05:10:002.1 [facility] WlpahbdTHDENPMKQ2162-54-14 05:10:003.4[facility] HermannCHEMISTRY 2011-12-06 05:10:004.68[facility] JayuqdxXPTBZGGIU3871-57-91 05:10:004.76[facility] PlnprbfQEYXSMNNW4905-63-59 05:10:001.17[facility] FmletsfSUTLOBKVA2744-63-73 05:10:001.19[facility] HmocdoiGFCFHVIHDT4212-47-07 05:10:009.4[facility] CAOLYJOBSG5555-55-59 05:10:0030.9[facility] MzsiozfSGSTBCOHQT1894-96-73 05:10:00 10.4[facility] HzadlyxKPAJEHEPKM8359-69-18 05:10:0093.8[facility] HermannHEMATOLOGY 2011-12-06 05:10:00 Test Item Value Reference Range Interpretation Comments MCH (test code = MCH) 31.5 pg 27.0-31.0 H [facility] RkbptowFZGAKHQVMJ7112-28-33 05:10:12188Scgcottq HermannHEMATOLOGY 2011-12-06 05:10:0033.5[facility] JmzlvnaQHAKWQWVIA4441-99-65 05:10:0016.1[facility] CgvcmqbSRVUGJRKML7024-31-06 05:10:0011.9[facility] DxdmxjuSHRDILUETC5216-42-91 05:10:003.30[facility] OoxhpqmOGBOMSJKXA4738-02-88 05:10:005.5[facility] KUHCTMWAZU6380-41-76 05:10:005.8[facility] DrzduywVKPCTGBGDV1291-15-78 05:10:00 88.6[facility] MnxzcjxAYWOAXMJNX5879-48-09 05:10:000.0[facility]annHEMATOLOGY 2011-12-06 05:10:000.0[facility] OhktevgLLNMEKFIZY6936-37-74 05:10:000.7[facility] FbkechrRKOAJXQSFB6031-87-30 05:10:000.1[facility] KyrondyINFYXEUOQX4146-76-71 05:10:0010.5[facility] UrewyvvMUYMGVXLTS9185-19-10 05:10:000.0[facility] PROQWAIZYW0631-99-97 05:10:000.7[facility] SvbzbeyWZQTVUKPAA1857-99-20 02:02:22888 [facility] LqudyboVLACXMTDIC8871-47-82 14:11:00 Test Item Value Reference Range Interpretation Comments PTT (test code = PTT) 24.0 s 22.9-35.8 N [facility] MztycgiLKMHYDIDAL8212-06-94 14:11:00 Test Item Value Reference Range Interpretation Comments PT (test code = PT) 15.0 s 12.0-14.7 H [facility] SeblnffCXDMFCZUQH0463-26-00 14:11:001.18[facility] HermannBACTERIAL - MHORBSDZ8312-56-59 06:58:00Negative 1(12/05/2011 01:58:00)[facility] LISRJKJJM2613-17-83 06:58:005.04[facility] LyzgtmqMYFXGWPUT3544-28-05 06:58:005.00 [facility] RupxkatIXHQXNFLM8030-58-00 06:58:001.26[facility] HermannCHEMISTRY 2011-12-05 06:58:001.25[facility] UcnhvokZFYXLVMEE9554-61-01 06:58:004.0[facility] CfnzwndJKBSUCIMC6082-45-62 06:58:001.9[facility] AzdgvbbSCVOLMLVL4575-39-00 06:58:009.0[facility] CpcbffkINTDMIWQR8061-64-83 06:58:0027[facility] YQLOIJXJI4102-52-14 06:58:56361Nxocrfxw CfjilcxZACOGXUVL6297-87-06 06:58:27190 [facility] FiswcudGWNMCULCV3560-86-00 06:58:86021Lbbiibsu HermannCHEMISTRY 2011-12-05 06:58:001.4[facility] VakjcneEYYBHXJIS0582-76-09 06:58:004.1[facility] WnowuorVLMEYEDRM2423-14-92 06:58:0024[facility] LzozynxZIEQETEUX5184-61-05 06:58:0017.1[facility] ZnlhlbsQMVOFVBWHG5941-94-97 06:58:000.0[facility] YEPOIWQSQV9725-69-31 06:58:000.0[facility] WypzwosJRPRLVLYSQ0749-84-25 06:58:000.3 [facility] KaszogwLWMFKEMZUN1537-26-40 06:58:003.1[facility] HermannHEMATOLOGY 2011-12-05 06:58:000.7[facility] WnaedywSVWMDXMEWK3235-03-20 06:58:009.3[facility] MwnqylkNYKDQHLOYG3793-07-35 06:58:000.2[facility] ZcfaxiaNOQADPGCVE7100-54-22 06:58:000.0[facility] WpgliibGQHQCZKHDL3646-33-44 06:58:006.5[facility] NFSPPJWFAD0481-35-53 06:58:0090.2[facility] MlhoeqeMPVJGTYREH7749-88-86 06:58:00 1.15[facility] WfqojuxTFWWNZJUAG5000-18-94 06:58:00 Test Item Value Reference Range Interpretation Comments PT (test code = PT) 14.7 s 12.0-14.7 N [facility] GeticvqJPNIUKVQNM9809-41-12 06:58:00 Test Item Value Reference Range Interpretation Comments PTT (test code = PTT) 24.4 s 22.9-35.8 N [facility] EylobjoOIQQLOTUBC6536-90-14 06:58:0016.1[facility]annHEMATOLOGY 2011-12-05 06:58:0032.8[facility] FrxsachKJNAAAVCFE8739-65-45 06:58:0010.3[facility] CyszqhpWTWPFJGKYC9375-56-66 06:58:0094.1[facility] BiyqvfeTGBMQRSGGC0979-25-07 06:58:0031.7[facility] TesldvxATUXTUPBIB5909-92-91 06:58:00 Test Item Value Reference Range Interpretation Comments MCH (test code = MCH) 30.9 pg 27.0-31.0 N [facility]GgsztpjWGMNKTYEBY7344-12-81 06:58:007.9[facility] HermannHEMATOLOGY 2011-12-05 06:58:0010.4[facility] VctrhmdDQNOTEIETX8498-95-73 06:58:003.37[facility] RgmhcfiWIZVWFYCM2711-72-99 03:58:59430Llktamlv FehzpfkPPSCTAGZF5676-11-74 03:58:95133Hyllbtcj JenyyjbAGAHSLCHK7658-64-47 03:58:003.5[facility] DIFUTZBCU8806-24-63 03:58:0033.0[facility] BfuodthSFLJZRKBU0349-11-86 03:58:00 100.0[facility] RsepktaVMLFAPRBE0347-92-41 03:58:001.6[facility] HermannCHEMISTRY 2011-12-05 03:58:001.17[facility] FbzolhiOZKKXPVFJ5795-86-23 03:58:004[facility] GhahopoZUIWFMURH4520-31-86 03:58:0029[facility] IpgzbeuTONTOALCT7062-58-41 03:58:0046[facility] KajnddwKKNYZCXCF7513-39-82 03:58:57246Crtqpfmd Reading YLBOWHBKW6091-90-45 03:58:0037.0[facility] RpwcifyQVKJKKWLP9725-23-28 03:58:007.41 [facility] DgokaddCYAIWCEIF9561-86-23 02:54:99978Qbphktkj HermannCHEMISTRY 2011-12-05 02:54:001.2[facility] AzupsgnSVDVHCSAD4650-04-20 02:54:001.21[facility] EmkhrbwYWYRHLPCB0980-37-38 02:54:004[facility] YnycxeiEGXVIQEFB9767-23-51 02:54:00 29[facility] LynvorxXCOSXFOGQ4037-66-57 02:54:40867Djtylleb HermannCHEMISTRY 2011-12-05 02:54:0041[facility] VtmjtyrHDRYJNKAS1779-05-62 02:54:0037.0[facility] KlpddywIKLYSCVAS2849-81-59 02:54:003.5[facility] TfbqbonJUNGWYPSL1207-92-52 02:54:007.45[facility] DxdkvdvXOQEDQHPW1032-15-94 02:54:82517.0[facility] ZMYADWBPZ6860-96-29 02:54:0029.0[facility] TldgclvTZSYNKAQN5014-21-69 02:54:53660 [facility] DfesoneYBDUMEFAH8157-29-89 02:03:0031.0[facility] HermannCHEMISTRY 2011-12-05 02:03:05729Pencnabg EqbzlqcNGVVZZLFD8029-96-57 02:03:003.4[facility] DekznmtAYFUEKXAG9341-45-37 02:03:33974Nranxpdq AvjwdqaSOKVXDAKS9435-98-85 02:03:001.3[facility] QnumgghDUPCTMJWM6805-35-96 02:03:009[facility] RWHEFOHRP7730-76-37 02:03:14466.0[facility] OxqvztsZYZUDTIIK5239-89-49 02:03:00 1.22[facility] EadguooDKTWAVVHC6127-79-93 02:03:0037.0[facility] HermannCHEMISTRY 2011-12-05 02:03:0034[facility] OxnsnpdGXWJLOPBB7539-60-93 02:03:007.46[facility] AipdjisWIGBWQOTH6214-30-27 02:03:0048[facility] BreoriaGJKBTJRHI0716-34-67 02:03:13646Nswcsccy RusxrpsUXYZKHOJGN5180-12-46 21:00:00 Test Item Value Reference Range Interpretation Comments PTT (test code = PTT) 23.5 s 22.9-35.8 N [facility] MwiccbaBXQEPLWKVB8792-01-91 21:00:00 Test Item Value Reference Range Interpretation Comments PT (test code = PT) 14.0 s 12.0-14.7 N [facility] YmebhteDLSKOEPEFP2910-04-91 21:00:001.08[facility]annHEMATOLOGY 2011-12-04 21:00:00Slight (12/04/2011 16:00:00)[facility] HermannHEMATOLOGY 2011-12-04 21:00:00Slight (12/04/2011 16:00:00)[facility] HermannHEMATOLOGY 2011-12-04 21:00:00Slight *ABN*(12/04/2011 16:00:00)[facility] 2011-12-04 21:00:00Slight *ABN*(12/04/2011 16:00:00)[facility] 2011-12-04 21:00:00Normal (12/04/2011 16:00:00)[facility] CEDMJEV9559-21-62 05:15:00Negative (12/04/2011 00:15:00)[facility] DQBUCBD6654-39-75 22:56:00Product available (12/03/2011 17:56:00)[facility] OekvjaiMMQGOYIRJ8257-68-89 22:42:002.7[facility] WfxaebcPCDDTJVDV9603-35-25 22:42:001.7[facility] HermannBEDSIDE GLUCOSE GHDGYFC2176-50-68 16:24:01149Lkqoslni HermannBEDSIDE GLUCOSE IQEXUCV3802-69-80 12:31:02400Qhwevomg HermannCHEMISTRY 2011-08-28 09:26:001.8[facility] DdlggasGJHSZFPEW1489-84-05 09:26:0012[facility] XxikbwiTZTOCZGPH2018-29-82 09:26:0036[facility] UsjwkpgSMOMQQWQQ3909-57-78 09:26:000.7[facility] TlqvajePOIEPMSDB9210-48-75 09:26:009[facility] DPBZNCAES2077-51-57 09:26:82593Scdzislm NuqbfroESUHDCBUJ2636-43-90 09:26:003.9 [facility] GzhykdrCLOHLIGYJ5053-18-37 09:26:0012[facility] HermannCHEMISTRY 2011-08-28 09:26:001.3[facility] YsuxovkYTWPXUHCV5044-49-74 09:26:0096[facility] QzcsxkbYYXUNQJIN5688-27-87 09:26:008.1[facility] FeipbnwPATMAXBGJ0737-03-80 09:26:003.1[facility] AeoihznKTKPYIVVS5525-21-33 09:26:006.9[facility] COVSDANTF4442-76-93 09:26:50623Yogbgojp IynpjatRWQMVETMR6471-50-73 09:26:0028 [facility] AzhhdvcNZCILNIHS7590-41-93 09:26:0013.9[facility] HermannCHEMISTRY 2011-08-28 09:26:009[facility] JhkffvzMKYEMMUCU8088-72-33 09:26:003.8[facility] LkduprdUUSNVSWTD9613-09-00 09:26:000.8[facility] EkvnxvzJPUGBIJORA9303-28-34 09:26:00 Test Item Value Reference Range Interpretation Comments MCH (test code = MCH) 30.9 pg 27.0-31.0 N [facility] FygbpezCLDXYQACMT6953-60-42 09:26:0034.1[facility] HermannHEMATOLOGY 2011-08-28 09:26:0034.5[facility] OlqwqsuGLAJPMHWEZ1180-41-46 09:26:0011.8[facility] QogbuwfBKAESGPCEJ7344-13-37 09:26:006.0[facility] HiinueeUXAFRJYNZA5665-22-95 09:26:003.81[facility] MmbhogmQRJWYRIQJC8578-67-53 09:26:009.0[facility] QUZKXKNHSY7358-01-20 09:26:0090.8[facility] VlrztnuMDGCXUFNIY8532-36-59 09:26:00 13.9[facility] ZqkfdqlPADXVMDKPG3231-69-06 09:26:0060[facility] HermannHEMATOLOGY 2011-08-28 09:26:00 Test Item Value Reference Range Interpretation Comments PTT (test code = PTT) 31.9 s 22.9-35.8 N [facility] SjldqcxQCWNYSLHOZ6928-98-89 09:26:001.78[facility] HermannHEMATOLOGY 2011-08-28 09:26:00 Test Item Value Reference Range Interpretation Comments PT (test code = PT) 20.6 s 12.0-14.7 H [facility] KsrpyizBBNOIWJBCT9882-10-46 09:26:001+ *ABN*(08/28/2011 04:26:00) [facility] CmthoaeRLQYQYEDAD6871-41-56 09:26:00Slight *ABN*(08/28/2011 04:26:00) [facility] KqlbgmcYWPKWPDDFT5038-91-82 09:26:000.0[facility] HermannHEMATOLOGY 2011-08-28 09:26:000.2[facility] HgvkxjjWBRVXKRKBI0121-99-81 09:26:002.1[facility] UlmgaqqJYKKJBBPCW0438-45-91 09:26:000.5[facility] EdytkdzETTVBIYWRV2779-99-42 09:26:003.2[facility] PnyncqbVRWPZKVFUJ0646-02-60 09:26:000.4[facility] DJRJBJFWNX2719-03-17 09:26:003.9[facility] ZnslngxDYHSWTKUMG6623-90-83 09:26:007.6 [facility] PjuexnhMSBFWJWGIW9953-40-26 09:26:0034.4[facility] HermannHEMATOLOGY 2011-08-28 09:26:0053.7[facility] HermannBEDSIDE GLUCOSE YFBRNAU4129-48-06 00:48:80735Hmhumntk OmpboigZBJDMAFXPA9723-87-33 19:57:0033.9[facility] SSRGWMJVGL9200-44-89 19:57:0011.5[facility] LrxfjwdFKCBDEUDW3210-50-29 09:20:003.1 [facility] DwafexvVIBBMLXJE9094-76-84 09:20:0014[facility] HermannCHEMISTRY 2011-08-27 09:20:000.7[facility] MrtaxpxJCWJIILHX1280-97-90 09:20:008.2[facility] JasszsdQDGFSPBIX6022-40-84 09:20:0012.7[facility] NpcysynKQODRPRJV4783-93-89 09:20:0029[facility] HqlllmdUUNTPJJHW8383-06-56 09:20:006.9[facility] UHEZUZPJM8272-72-85 09:20:0011[facility] NjafsuqANRQGMXGC8348-10-25 09:20:003.1 [facility] ZbmbytbSSDFPYXZD5084-36-31 09:20:0037[facility] HermannCHEMISTRY 2011-08-27 09:20:0013[facility] ThhsqsoCJVARJLGW5488-44-20 09:20:000.8[facility] ZivtgwaYAINYXJZG2538-93-93 09:20:003.8[facility] HigygyzXFPWAAOWI2599-76-24 09:20:0098[facility] ZtymrtgYUPUUZBZQ4666-44-13 09:20:0017[facility] ATSQXBFGE9270-97-92 09:20:001.6[facility] KqtgymnEUJTTGQCG2431-59-97 09:20:00694 [facility] QzrovssGUITNHTZJ0675-10-11 09:20:003.7[facility] HermannCHEMISTRY 2011-08-27 09:20:38395Usgfqyes SadujmyCDWRZKSIG8989-77-48 09:20:001.8[facility] DygqmhsAOBXKCKZL3815-55-16 09:20:003.93[facility] SqimkksXYAHAXOCW5726-36-79 09:20:0052[facility] QgqlhozJXTIHVXAY0198-88-95 09:20:14686Unwjevha Noel IBPVLRMAJ0339-48-17 09:20:0028[facility] MbbecjvPKISHRTPG0672-62-67 09:20:25334 [facility] CbhdjntFASAIGTWRL3255-17-84 09:20:00 Test Item Value Reference Range Interpretation Comments PTT (test code = PTT) 32.0 s 22.9-35.8 N [facility] GyzqnmlYMNMDZBGXR9920-47-23 09:20:00 Test Item Value Reference Range Interpretation Comments PT (test code = PT) 20.7 s 12.0-14.7 H [facility] SxrhgnjUSWGOGIEMJ0036-50-55 09:20:001.79[facility] HermannHEMATOLOGY 2011-08-27 09:20:0013.7[facility] JcoqgfpRHRWOFLNVE0977-42-47 09:20:0055[facility] YmszzgfHCRCMXBEUN1312-13-99 09:20:009.1[facility] KwwmowoQQKEEZIVWO6834-87-67 09:20:0034.1[facility] DigazioISITGNOGOI0825-43-54 09:20:0034.7[facility] UZMVBAGXFL8769-89-49 09:20:0091.3[facility] DaqxarnSZCAEWSRSD4955-33-51 09:20:00 11.8[facility] PjwzbhhRYFCIEZAYN6147-60-00 09:20:00 Test Item Value Reference Range Interpretation Comments MCH (test code = MCH) 31.1 pg 27.0-31.0 H [facility] XdkorwrFUWNHFPUCT3131-44-94 09:20:006.4[facility] HermannHEMATOLOGY 2011-08-27 09:20:003.80[facility] QdofywaYMRMJQGZLF9858-79-53 09:20:002.8[facility] LbgjzglSNCMIZTFNY2184-82-33 09:20:000.2[facility] BpzbocjWDNWADEWYE6890-71-32 09:20:000.0[facility] HgrevudSLETJKFPWE5715-58-01 09:20:000.5[facility] HKRNRXTNXP8327-64-73 09:20:003.3[facility] LfycqotRIDNTVGZGB5242-29-74 09:20:000.3 [facility] FccftmoZPGIVLXLAH2481-77-48 09:20:002.9[facility] HermannHEMATOLOGY 2011-08-27 09:20:007.1[facility] EienltnJTEJJEOQHK1350-47-62 09:20:0045.8[facility] AlxgnasFXHDBXSBRV6067-76-47 09:20:0043.5[facility] RxzyguhYEXWQCWRF3946-42-58 01:25:002.5[facility] PlytzarDJACTVIDR2433-71-41 01:25:001.7[facility] PIVVAVAQZ5465-16-98 01:25:0011[facility] IeaqsaqPVTOQNCLZ2952-83-09 01:25:000.6 [facility] OmuetigRHVXXFQVF8858-88-09 01:25:0038[facility] HermannCHEMISTRY 2011-08-27 01:25:0014[facility] DwkpwgqUTRGKBRMT4782-07-26 01:25:003.4[facility] IqgilvqEYXYUVKYT0636-11-40 01:25:32499Flosdmyi OgolvagUOQYMKCBX9566-02-39 01:25:001.7[facility] EombjooRUCLKKIMV5256-86-57 01:25:53488Hfxkbxzn [facility] UBIMZJJYE1201-47-73 01:25:0020[facility] QtkptyxETXRMQHOE6348-78-32 01:25:003.5 [facility] OgeqijiIGIJAOBBW0177-58-01 01:25:11701Gpbusqxf HermannCHEMISTRY 2011-08-27 01:25:007.6[facility] UndjvsnOXJHRLBHT0559-32-49 01:25:008.7[facility] GysgrfhFMPCBIZJK3975-58-77 01:25:0028[facility] KampuaiFKHDAHJLO4124-23-23 01:25:000.8[facility] ZvqunofXVUHPPNPN2121-51-13 01:25:004.2[facility] AGSTMFXNE4520-97-23 01:25:0012[facility] MhevupgEKAGGXFIO9976-17-05 01:25:0012.5 [facility] GblacndZPLFALOTEL3053-63-18 01:25:001.82[facility] HermannHEMATOLOGY 2011-08-27 01:25:00 Test Item Value Reference Range Interpretation Comments PT (test code = PT) 20.9 s 12.0-14.7 H [facility] UnpkcsrDOPHMBQCTD3628-39-45 01:25:00 Test Item Value Reference Range Interpretation Comments PTT (test code = PTT) 32.2 s 22.9-35.8 N [facility] ZzafzbiHESRLDGYGY2448-45-45 01:25:007.3[facility] HermannHEMATOLOGY 2011-08-27 01:25:0059[facility] HmmcbmtFEMNOFNIDC4664-98-91 01:25:0014.1[facility] YradptnKEWKCYYZKY5038-06-68 01:25:0033.8[facility] RggifxaCISGCSXVKQ2112-88-52 01:25:009.3[facility] ZavokpxWGIEHCAWRJ0667-09-78 01:25:003.95[facility] JJTWIJSFCW1728-39-44 01:25:00 Test Item Value Reference Range Interpretation Comments MCH (test code = MCH) 31.1 pg 27.0-31.0 H [facility] WgmrkoiPGKBOYLSJE9597-69-32 01:25:0091.8[facility] HermannHEMATOLOGY 2011-08-27 01:25:004.2[facility] TvwklfbUIUDGLXOXP0409-98-66 01:25:000.1[facility] IwjzatdCHUFAEWHZT0375-54-00 01:25:002.5[facility] MwauufzJUEHRUOSJJ0431-73-53 01:25:000.4[facility] SpzahwtUETUZCMGKR1958-77-13 01:25:00Slight *ABN*(08/26/2011 20:25:00)[facility] JnuevbpMGJRWAOZNP1517-80-51 01:25:000.0[facility] OQJABEFYIJ7012-94-83 01:25:004.9[facility] EgpfhffGTJQUGIMCH9153-34-17 01:25:000.5 [facility] JsjfwjsQCKSLSLXRQ3992-67-33 01:25:002.0[facility] HermannHEMATOLOGY 2011-08-27 01:25:0034.5[facility] JkxhxdkKEYPHAKHON4778-95-78 01:25:0058.1[facility] QvdwwfwJIGMGWTWCJ6139-11-38 01:25:00Normal (08/26/2011 20:25:00)[facility] BEDSIDE GLUCOSE SZJPYTH3926-20-47 13:41:55695Obkbmbzg ChvcqtiSCUTCMNET6534-35-87 13:00:006.2[facility] RjwflveIYSAQIMRT2997-50-51 13:00:0016.6[facility] CQPJVDVQS3615-10-74 13:00:009.0[facility] IhmlrgjCARGGCDVC4831-37-44 13:00:001.0 [facility] VddjemyUHWCUDURR3220-86-93 13:00:0021[facility] HermannCHEMISTRY 2011-07-07 13:00:004.6[facility] ZhelzycLPXAGSWGH0527-18-92 13:00:89410Yayxfbxf KsjgtykIHAWFSDIQ7702-82-33 13:00:72142Nrobmjqf RmnmnepTYUPRGWGD3374-22-29 13:00:09884Okzcupvh XzfajrgLGVGZJQAX5517-41-18 13:00:0027[facility] PBULWFTLHC8505-21-94 13:00:009.4[facility] GztgppjHHXNFHDIQS5417-41-93 13:00:0049 [facility] TgvxvulRLSDRCBWWU9083-29-96 13:00:0033.1[facility] HermannHEMATOLOGY 2011-07-07 13:00:0014.4[facility] VhwmomwMEFLOUZDAJ5812-67-61 13:00:0039.9[facility] FulcqlzTYSDQPRDIQ0681-88-77 13:00:006.3[facility] BafhubnEEFPGHSUND9471-02-16 13:00:004.26[facility] JkzcmyxKGVZGEHTXT6004-09-53 13:00:0013.2[facility] FHUOKFAOEV6187-61-68 13:00:0093.7[facility] PurhlziQMUUOKARTX0808-06-23 13:00:00 Test Item Value Reference Range Interpretation Comments MCH (test code = MCH) 31.0 pg 27.0-31.0 N [facility] IollmmeXQQCEKIIDM4303-50-24 13:00:00Slight *ABN*(07/07/2011 07:00:00) [facility] LhtfljzSMDSFWIOPD5776-51-77 13:00:00Slight *ABN*(07/07/2011 07:00:00) [facility] SmrvcohYHGJEWLVBX9528-21-93 13:00:00Slight (07/07/2011 07:00:00) [facility] CvvznruPHHJHMHCKJ1088-11-69 13:00:000.0[facility] HermannHEMATOLOGY 2011-07-07 13:00:000.2[facility] HtwadumUGUZRIVHXC2242-38-17 13:00:003.4[facility] ZvoqkfwDYAJLWWDTT0823-98-97 13:00:000.4[facility] TrjxxykJELZMFEFBB1888-00-46 13:00:000.4[facility] VydngiyDTSBGYHDXQ8504-09-96 13:00:002.3[facility] THAENCOZUZ8229-50-82 13:00:003.1[facility] CxbgwhvAKXQZHNHBQ7663-12-58 13:00:005.8 [facility] CkeicarIDKRRRCVIU6710-70-68 13:00:0036.1[facility] HermannHEMATOLOGY 2011-07-07 13:00:0054.6[facility] HermannBEDSIDE GLUCOSE YLXILPL8424-68-48 02:20:96761Eujupgxt HermannBEDSIDE GLUCOSE RHLWGIW3304-17-92 22:22:0086[facility] GlobiptSVRUPREJL0300-51-47 11:45:002.680[facility] GsgwjlnDQZHLKWLW4833-59-83 11:45:002.64[facility] QbtorvaDYAHEBNBX8038-23-23 11:45:0044[facility] LGPGPZFGF5120-33-26 11:45:0039[facility] NgzctijWTSYCAGDU2250-88-91 11:45:47147 [facility] ZcfcjiqRHXLUIQVH6251-02-49 11:45:93930Wievqneb HermannCHEMISTRY 2011-07-06 11:45:007.3[facility] QzaguhmOXUTWFBBG4549-38-15 11:45:003.7[facility] UunroesQDQYYPVGY7304-75-83 11:45:0051[facility] PrilepgTHJTHMVTV8148-69-98 11:45:0016[facility] MfcwuulNKZCNBXUU5124-28-31 11:45:003.6[facility] YAWSVVZAB2781-02-17 11:45:001.0[facility] HymnoieLZYUPYLZZ3984-31-70 11:45:0012 [facility] IxbgfxjSTZGIYVXO7092-69-51 11:45:000.4[facility] HermannCHEMISTRY 2011-07-06 11:45:008.8[facility] OgesycjEFXYXMIAD0218-31-24 11:45:0013.5[facility] NpmnojaXLBNSYEKR6300-43-89 11:45:0017[facility] FvrgxkrECKIDSSBD8273-46-74 11:45:0020[facility] PsofmiwGUAFGIOEM8582-07-22 11:45:58585Mubjllxy Noel AYLDBGXSU1571-84-58 11:45:0028[facility] WoluahuRWQYXCCOE0994-41-36 11:45:001.2 [facility] JpmoeasKBMOCZEIV9217-58-51 11:45:003.5[facility] HermannCHEMISTRY 2011-07-06 11:45:91525Ttmeteve TnwvmwqDSTALJXMD9290-15-52 11:45:05250Ohfjzgtf PfjqlwlCWPXNYAJX7769-04-72 11:45:000.9[facility] UrckywoZLCTYVSDJ0309-36-37 11:45:000.19[facility] EpnzpktQQKLKRVVF2603-00-85 11:45:000.7[facility] VWBFUWUDC0269-02-32 11:45:0075[facility] WogfmwvNELVQRUPOZ3675-65-11 11:45:0093.0 [facility] VxssrudTQAPGQITCK5177-31-28 11:45:0033.8[facility] 2011-07-06 11:45:00 Test Item Value Reference Range Interpretation Comments MCH (test code = MCH) 31.4 pg 27.0-31.0 H [facility] FskyfhrJUCQHRWQUA9366-51-58 11:45:0012.4[facility]Y 2011-07-06 11:45:0036.7[facility] JljxmxaAYMKOMXGJZ2474-94-48 11:45:009.7[facility] FfmnysrIZZIVEHOXR1209-07-14 11:45:0014.1[facility] LevpmynSWDJXZWBVR3730-37-39 11:45:0046[facility] LthyhooFRBZCDHGEL1082-79-19 11:45:005.9[facility] DLVELDXFXI4957-98-83 11:45:003.94[facility] CwldurkFBAREGIIVY3151-44-22 11:45:00 Slight *ABN*(07/06/2011 05:45:00)[facility] TdhitmaQPCQULHNBZ2940-77-29 11:45:00 Slight *ABN*(07/06/2011 05:45:00)[facility] AyctqnsWTRDEAUTYU1783-00-81 11:45:00 Slight *ABN*(07/06/2011 05:45:00)[facility] QwugjcdKMKPCJBJCT5405-73-74 11:45:00 Slight *ABN*(07/06/2011 05:45:00)[facility] NvzmdvhKLRQIJUNQD1439-80-97 11:45:00 Slight (07/06/2011 05:45:00)[facility] XjsqhieNICSPDBPRO3328-69-52 11:45:001.0 [facility] DuslbhjLUPESAUUWO5608-88-27 11:45:001.0[facility]Y 2011-07-06 11:45:005.0[facility] OdnxqlcQNLXCZXFYV7114-10-88 11:45:004.0[facility] KkghccoGBMLRFHTHD3677-72-35 11:45:0048.0[facility] NkvqribDLFGIYRCHH2937-51-99 11:45:002.5[facility] ChtostuEGEBXUXIYG8315-70-47 11:45:000.3[facility] MKMUGWLRRL7233-23-56 11:45:000.1[facility] OqrqaujHEVOYCSGBO5811-36-93 11:45:000.0 [facility] QmctucqYCWOQIFGRT7828-05-02 11:45:0039.0[facility] 2011-07-06 11:45:002.0[facility] QqxerssFQJLVNNRNG4902-93-68 11:45:002.8[facility] YlblkgvVEHEMSISE7565-95-84 03:56:52973Upepewjw EiilfmvUPVIKUDOQ0332-31-84 03:56:000.5[facility] WqkbtqbAPRGUFJRS4940-94-99 03:56:000.18[facility] BKGFOMZWS8811-74-04 03:56:0079[facility] CjdnmylPAUECQQPI0002-61-26 03:56:000.8 [facility] MwejhelPSTLIWHON9204-28-15 03:56:004.4[facility]annCHEMISTRY 2011-07-06 03:56:000.4[facility] ZxjhripCCJNZPOOS6851-44-80 03:56:0014[facility] LlcneqtXZCXQVLKZ4902-27-86 03:56:008.8[facility] IushmknRYEEJRZSQ5789-12-59 03:56:0014[facility] EzeekiiQJKGBPBUC7085-00-53 03:56:0033[facility] PGILOISEN9171-54-16 03:56:001.4[facility] CmbgzmmFMVOYPAJT5377-89-83 03:56:07721 [facility] QvmxjphBJEWZLUQV0109-29-47 03:56:003.8[facility]annCHEMISTRY 2011-07-06 03:56:94935Sjarpcca XsktonwRTNBMIDGW6595-06-56 03:56:0018[facility] BmaarofDDAMYMPNH0707-92-08 03:56:0054[facility] HcqrfggWKDBPNKUO7554-33-05 03:56:008.9[facility] JsavmomIDLAAKNOJ0567-60-23 03:56:008.1[facility] DWCCFNVAV3078-83-89 03:56:003.7[facility] OqgemidKBORHMBWK7303-37-35 03:56:0020 [facility] KygorgfEIYULTZWS6945-21-85 03:56:71835Qnxewsqv HermannCHEMISTRY 2011-07-06 03:56:000.6[facility] TkdtciuIQNJPZEGHP4560-35-14 03:56:00 Test Item Value Reference Range Interpretation Comments PTT (test code = PTT) 27.8 s 22.9-35.8 N [facility] GxcybcdZYRCORRERP0314-11-61 03:56:00 Test Item Value Reference Range Interpretation Comments PT (test code = PT) 17.7 s 12.0-14.7 H [facility] YakksxiIXCUNZKNKR7333-83-40 03:56:001.46[facility]annHEMATOLOGY 2011-07-06 03:56:004.11[facility] CvmhkugUQPXMLCSLB2750-89-04 03:56:0049[facility] OlrfxakUMFWLRJADI9659-68-08 03:56:009.1[facility] ZffgvkyLYJIJDZZYC8860-82-94 03:56:0014.1[facility] KroumyuDLNYHZCVCK1923-25-03 03:56:005.5[facility] KNADKUCIPJ4368-06-17 03:56:0037.2[facility] YyrkzbvZFJGQMPAFJ2772-83-82 03:56:00 90.5[facility] QocqgvaTCMEQVLVLA5489-34-35 03:56:00 Test Item Value Reference Range Interpretation Comments MCH (test code = MCH) 30.8 pg 27.0-31.0 N [facility] MjlytkkWHTHPAPPGD3806-78-38 03:56:0034.0[facility]annHEMATOLOGY 2011-07-06 03:56:0012.6[facility] MxlgnutXBOBRAHQKJ0393-53-28 03:56:002.0[facility] CbarncjPSDVTEHEPK4516-12-16 03:56:000.4[facility] DabsoqvWDMQVGGLMV9747-81-97 03:56:00Slight *ABN*(07/05/2011 21:56:00)[facility] AygmqidEAIWMMYQNJ1400-07-30 03:56:000.1[facility] ZcqhwyqTUJNRAHVTP9887-88-65 03:56:0036.0[facility] RBMQDNQIHD4188-99-89 03:56:000.1[facility] XbjpmqeTIUEQODULB0047-97-90 03:56:003.0 [facility] CjmctmdUPMEKBKAUO8174-66-06 03:56:0054.0[facility]annHEMATOLOGY 2011-07-06 03:56:000.0[facility] ZaadbqgUMSFQFBMNK5087-72-94 03:56:007.0[facility] UmuxzhdJFUHFWTQVS9516-19-96 03:56:002.0[facility] ChywmqiRJMGMCKZJF7201-49-40 03:56:001.0[facility] WvkeiooJLBWDSKIKX1214-71-57 03:56:000.0[facility] JWWEORVEKZ5054-24-75 03:56:002[facility] PvtevvsHHCKSCQMTP4139-12-60 03:56:00 Normal (07/05/2011 21:56:00)[facility] HermannBEDSIDE GLUCOSE NNNMVQB6850-77-88 17:34:89475Azkroglf HermannBEDSIDE GLUCOSE JOVIOJW5078-28-44 13:53:59951Gsgnopze ArkbkafMIZTTJGLV9615-48-36 11:00:002.1[facility] EqrndeiJRIOMZFMY9407-48-07 11:00:0010.4[facility] OpdbfmgXUCFQZKRM9190-89-40 11:00:0029[facility] UKKFTTCTY4076-30-50 11:00:008.2[facility] NrpiejkWDPDEHBWS1314-01-19 11:00:20207 [facility] QwkiuooSBMZEYABW2677-89-15 11:00:66275Sdbaqtwk HermannCHEMISTRY 2011-05-05 11:00:004.4[facility] MqamcsbAADAACSUZ6177-42-57 11:00:001.2[facility] QpxmzdySZLTGMPCO6590-73-06 11:00:0086[facility] IdwspngJAWUKVCHZ3846-39-63 11:00:0025[facility] VkkjrsqINNZICDHZ0832-84-23 11:00:0089[facility] MDESZIANV8496-87-34 11:00:0042[facility] CvxgdvgRUPSYWUJZ2683-84-15 11:00:66133 [facility] SqgdaduPIEZMILQZ6314-66-28 11:00:10491Zalrnieh HermannCHEMISTRY 2011-05-05 11:00:003.67[facility] RhijjvxRFAWLWARD1522-62-41 11:00:002.5[facility] VcxfjheQXVLKCGDFP6289-06-70 11:00:00 Test Item Value Reference Range Interpretation Comments PTT (test code = PTT) 44.8 s 22.9-35.8 H [facility] LrexdcjWHGLYCOQUH7761-25-83 11:00:00 Test Item Value Reference Range Interpretation Comments PT (test code = PT) 21.1 s 12.0-14.7 H [facility] IdqmorrZQNUCEYKLT7463-22-50 11:00:001.84[facility]annHEMATOLOGY 2011-05-05 11:00:00 Test Item Value Reference Range Interpretation Comments MCH (test code = MCH) 31.5 pg 27.0-31.0 H [facility] SlmxknsNGEEUERZRA7693-22-92 11:00:009.7[facility]annHEMATOLOGY 2011-05-05 11:00:0034.0[facility] QdwclqpFUTXVDTAUA5760-12-74 11:00:0048[facility] XorxufjFLIHJUMQYY9618-27-61 11:00:0012.5[facility] QozbqyrMJPMADNRHE8188-53-51 11:00:004.3[facility] QczgccbHUNGRQVZOK0037-28-95 11:00:003.97[facility] VMJDNHKCGI4642-29-37 11:00:0036.7[facility] TkjelwxUHMVQWDKLJ2262-62-97 11:00:00 92.5[facility] XakbbhqRYZHXUSCVM8777-75-91 11:00:0015.1[facility]annHEMATOLOGY 2011-05-05 11:00:00Slight *ABN*(05/05/2011 05:00:00)[facility]HE[facility] 2011-05-05 11:00:00Slight *ABN*(05/05/2011 05:00:00)[facility]annHEMATOLOGY 2011-05-05 11:00:000.0[facility] CimcfpzSGNTCYOUQR1606-38-77 11:00:000.0[facility] FibphmwGLHXRDBDZF3755-96-01 11:00:0051.0[facility] DawsdghSGAGHFZBQQ9882-96-70 11:00:000.0[facility] TqijjepGQGOBXIYEN5709-00-68 11:00:0042.0[facility] CWIQEAJJDB3023-88-62 11:00:000.1[facility] NtmqqknDZIHAMGWND0535-15-94 11:00:000.2 [facility] IruqqyrWIYSIWIUEN1877-42-98 11:00:002.2[facility]annHEMATOLOGY 2011-05-05 11:00:001.8[facility] QlvtqzaSCINRKFZQN6940-22-79 11:00:002.0[facility] UzwlturXGVPHQXSOD6352-80-56 11:00:005.0[facility]ann[facility]ING 2011-05-05 03:20:72561Iakbphwb RqfxgmwGVQIEWTIFS9085-00-50 10:30:000.0[facility] VyviwcxEMCXUOOYBV4912-94-61 10:30:000.1[facility] DfxlsvxTSJVUSQKOF4894-05-55 10:30:006.1[facility] UdnwvkeWBLLMRNRKR4966-59-72 10:30:0033.5[facility] MITODOSBZP2025-78-58 10:30:0056.9[facility] VwgzleaEWVVWDMYBD3151-10-06 10:30:00 1.5[facility] DccdqxfHJTQOGFKGN4586-77-96 10:30:002.6[facility]annHEMATOLOGY 2011-05-04 10:30:000.3[facility] KbfvjivOSTBMSUYQQ8003-97-36 10:30:002.9[facility] VrztjkdURTLELTMRB5430-35-74 10:30:000.6[facility] AhepfhzRBMEASMMSR2862-14-12 10:30:00 Test Item Value Reference Range Interpretation Comments PTT (test code = PTT) 43.4 s 22.9-35.8 H [facility] FwwqwyzSAOVDYCRMS8733-92-95 10:30:00 Test Item Value Reference Range Interpretation Comments PT (test code = PT) 18.2 s 12.0-14.7 H [facility] WhitgsnSPYDIMKIYY9973-21-88 10:30:001.52[facility]annHEMATOLOGY 2011-05-04 10:30:009.8[facility] YjwjejvXXMQCUQABF5260-48-41 10:30:0034.2[facility] WkkpmcxBNPEEXWTJG4086-68-18 10:30:0015.0[facility] JroueqyYGICXBMEKQ6388-04-35 10:30:0051[facility] NpvsfqaXYIWFVJSWX8120-78-56 10:30:004.06[facility] NKKEYZXXNN7751-45-44 10:30:0012.6[facility] KnsgdknNPBLMPDHLH0117-19-61 10:30:00 Test Item Value Reference Range Interpretation Comments MCH (test code = MCH) 31.2 pg 27.0-31.0 H [facility] UkfdpgsRSRUMYPRZB4105-16-26 10:30:004.5[facility]annHEMATOLOGY 2011-05-04 10:30:0037.0[facility] YvoimzrYFKBVRXRJU7584-45-34 10:30:0091.1[facility] YnjbmbdYTUDLDDCSK9495-91-70 10:40:001.41[facility] LlfjzxyZZQWZVFXXJ0651-52-56 10:40:00 Test Item Value Reference Range Interpretation Comments PT (test code = PT) 17.2 s 12.0-14.7 H [facility] VcwkrodRUSEFRGDIN2559-08-11 10:40:00 Test Item Value Reference Range Interpretation Comments PTT (test code = PTT) 37.6 s 22.9-35.8 H [facility] AdrlaqgLZSCECRMOY3470-80-07 10:40:0010.0[facility]annHEMATOLOGY 2011-05-03 10:40:0066[facility] RtqkmjdLRMSNDUVMN2383-03-72 10:40:0091.6[facility] GlhcoamSNRLRFIQDZ6879-57-84 10:40:00 Test Item Value Reference Range Interpretation Comments MCH (test code = MCH) 31.3 pg 27.0-31.0 H [facility] PztmiklQQYFVSXJWP4424-27-95 10:40:0034.2[facility]annHEMATOLOGY 2011-05-03 10:40:0015.4[facility] PqtiybaEXALWPZJNU7578-15-84 10:40:0038.7[facility] YutdhcsHOXRNMHQAZ1953-04-77 10:40:004.8[facility] YrpqgqoVCODJLBFJJ5898-80-21 10:40:004.23[facility] HgwycfpGMAAWCOJBI3050-76-05 10:40:0013.2[facility] WJHRMWZJNS7669-79-44 10:40:00Slight *ABN*(05/03/2011 04:40:00)[facility] VNXIIBNPHM9185-81-03 10:40:000.0[facility] PpuaxxcUHEXGEHXPZ9970-65-06 10:40:00 Slight *ABN*(05/03/2011 04:40:00)[facility] RdfflhzDEZHKBRIKG9327-10-86 10:40:00 2.0[facility] ElqncwpHTKRCKMWEN6922-86-91 10:40:006.0[facility]annHEMATOLOGY 2011-05-03 10:40:004.0[facility] OhvlsudYZIXJZIPCL9004-01-39 10:40:001.0[facility] PlibqfxYZDIPLWNQG1645-91-36 10:40:000.3[facility] KxdprgiECTOADWCBP8238-09-93 10:40:0054.0[facility] ZmtnnrfMPBPEJJKYS0022-37-05 10:40:0033.0[facility] KNEEGDCBPR9365-16-99 10:40:000.2[facility] RzsbvwiOCIIYKWSSW8344-13-82 10:40:002.7 [facility] PrkrqfiEVKPRXNOYI7423-78-07 10:40:001.6[facility]annHEMATOLOGY 2011-05-03 10:40:000.2[facility] UsxvmoyLBVRVTJORV2035-00-85 10:40:000.2[facility] XnfyybwWTZHDNGINC3922-05-75 10:40:000.0[facility] YvmythqPRGDHDBYHK3718-39-00 10:40:005.1[facility] DsavsgnOCZOFAXIBW6484-70-82 10:40:003.4[facility] MLHVHGSWTR4907-92-32 10:40:000.4[facility] FigkbarWUYHWRUPVD5358-99-77 10:40:001.7 [facility] RwjrtzaTCUEMPKPRQ5816-13-67 10:40:002.6[facility]annHEMATOLOGY 2011-05-03 10:40:0036.4[facility] YxsbqavTMLKOYRTWN9053-05-20 10:40:0054.7[facility] LwbydoaVIMYTYIGVJ8802-50-05 10:15:00Slight *ABN*(05/02/2011 04:15:00)[facility] WyxamozFUZXCPWUAX4817-22-34 10:15:00Slight *ABN*(05/02/2011 04:15:00)[facility] YtqfqlkYKYMKVIRAN8819-81-33 10:15:000.0[facility] QbgtykgEGCFIMTGHM6679-78-13 10:15:00Slight (05/02/2011 04:15:00)[facility] VgwaaksFFFRZZQYAY9936-83-67 10:30:00Slight (05/01/2011 04:30:00)[facility] CfdqaccSYYXEEYBCF1736-58-65 10:30:00Slight *ABN*(05/01/2011 04:30:00)[facility] EqraqmsWIQEHTOXLO0862-92-34 10:30:00Slight (05/01/2011 04:30:00)[facility] QyrepqnEYOAKSYDOO3162-93-52 10:30:00Slight *ABN*(05/01/2011 04:30:00)[facility] HkrewxfUIZDHMMKGN9196-32-77 10:30:005.0[facility] VnstgjqNBQXZILXEF0349-62-51 10:30:000.0[facility] HTIENBPGCG8091-75-41 16:15:005[facility] LmnltkeBSDRBIWXPL4750-27-71 16:15:27272 [facility] TzmfgbxPURFZLMRVT1778-96-21 16:15:378347Jwgshzie HermannHEMATOLOGY 2011-04-30 11:00:00Normal (04/30/2011 05:00:00)[facility] HermannHEMATOLOGY 2011-04-30 11:00:00 Test Item Value Reference Range Interpretation Comments dRVVT (test code = dRVVT) 36.9 s N [facility] FvwwemdDVWMERPTTF7444-31-49 11:00:00Negative (04/30/2011 05:00:00) [facility] UxlptryQSCPAYZVNX3047-29-93 11:00:007.0[facility] HermannIMMUNOLOGY 2011-04-30 11:00:001.65[facility] NkfiisrCTBUAEIGYM2517-66-48 11:00:000.78[facility] QllakemRQQVVPIKVQ3666-88-20 11:00:000.69[facility] AucjzugGTBSGKHISJ7678-65-69 11:00:0051.1[facility] YfohvnpQGIRLCDIAV5161-43-00 11:00:004.2[facility] ZGTUBHGAXI0342-84-96 11:00:0011.2[facility] GmsnpkdSYHFHSFQEW3252-87-31 11:00:00 9.9[facility] GviqcheLHUKHHJIPO8739-87-56 11:00:0023.6[facility] HermannIMMUNOLOGY 2011-04-30 11:00:003.58[facility] LzjonkcFAVMCZOOVW1984-70-43 11:00:000.29[facility] EacdvujMFDCBDIZAJ9848-17-64 11:00:00<9[facility] TyzlewiIUIYWXNLPU6983-72-17 11:00:00<9[facility] HwvprfoRHYKSAZAIA8515-83-34 11:00:00<9[facility] CUUFHXPYOS4484-55-96 11:00:002[facility] LczuqarFVUQRGVQXQ9330-24-29 11:00:004.3 [facility] DsrqpviDUGWVANACF4813-66-50 11:00:006[facility] HermannCHEMISTRY 2011-04-29 11:20:008.3[facility] MgryljuBNAYBBWUL0747-15-03 11:20:004.5[facility] FojyfouYCMLCAPTS6353-52-59 11:20:72432Knynhtdu WzbtocqLVVFYHCNY0064-28-23 11:20:0031[facility] LpgexilEVUYUUSCM2958-02-32 11:20:48427Cgihndpx Reading VVDWANSUS6048-32-37 11:20:0022[facility] LtcpdpnUQOGCTAUZ6886-11-28 11:20:001.4 [facility] QmjvwerBAKYITYOB5535-01-92 11:20:11416Eqjdgxxp HermannCHEMISTRY 2011-04-29 11:20:0011.5[facility] CiidpofRLKFQSMVF2534-65-90 11:20:007.2[facility] CkmyvxeNVPJEYPRR4464-32-22 11:20:003.540[facility] GgwrhhtQCLQBOPCRP7361-38-48 11:20:00Slight (04/29/2011 05:20:00)[facility] HermannBACTERIAL - SEROLOGY 2011-04-28 16:58:00Negative 1(04/28/2011 10:58:00)[facility] HermannCHEMISTRY 2011-04-28 16:50:006.7[facility] LrejwlzQOXRYKIAK7019-93-65 16:50:0015[facility] OnamwrsLHMTDGMLJ8448-59-38 16:50:003.2[facility] ZayjrsuOQSVHDNHR3521-85-79 16:50:0046[facility] QnobdumJVYZMPTYC2675-11-04 16:50:000.2[facility] GIISUIESA5676-32-18 16:50:0017[facility] GnsbyviYMGHPXFXX7600-95-60 16:50:000.8 [facility] BlyzogjFSVCOSERN5730-39-65 16:50:003.5[facility] HermannCHEMISTRY 2011-04-28 16:50:000.6[facility] KfydleiOABCWKHUZ2022-00-72 16:50:000.9[facility] KrsjutaPHYQTOABZ4570-69-53 16:50:0030[facility] ApftkvoGCPDAIQMQ0179-27-57 16:50:008.0[facility] LxmllcjMGMOWRPVS9079-39-44 16:50:0099[facility] BDUGLYPII4351-81-69 16:50:003.6[facility] EksvlxqRUWLWUILX0721-30-56 16:50:0026 [facility] IrekbzrQECNHIIWB2258-17-98 16:50:15012Walawkwu HermannCHEMISTRY 2011-04-28 16:50:58879Zzgfjlxe RyqhtlkMSKSQBMSD5825-30-66 16:50:001.4[facility] LghawaaSKGJEETAD2314-93-69 16:50:0011.6[facility] AacfmxmMMEPRDRFZR4846-71-83 16:50:00 Test Item Value Reference Range Interpretation Comments Pat Od Value (test code = Pat Od 0.084 1 Value) [facility] XsfvjlsEQOTULERFV8315-31-01 16:50:00 Test Item Value Reference Range Interpretation Comments Pos CO Value (test code = Pos CO 0.376 1 Value) [facility] BbxcabjIGJBYJYUCF3219-63-87 16:50:00Negative (04/28/2011 10:50:00) [facility] FqlmmvzPHXJADRVAL6309-71-83 16:50:00Normal (04/28/2011 10:50:00) [facility] ShnergleannBLOOD BANK HYHVVYV1979-14-26 10:52:00Product available (04/28/2011 04:52:00)[facility] ShnergleannBLInformantonline BANK DSMPBPF8930-84-10 10:52:00 Negative (04/28/2011 04:52:00)[facility] GfzbmxpZEYMCTOVZ9748-15-32 08:40:000.70 [facility] KhfdtwmOKDUGIROF1072-72-43 08:40:004.9[facility] HermannCHEMISTRY 2011-04-28 08:40:35407Snwgpjha IbpccrrDSYVWNZRT4648-29-26 08:40:63789Xadamtwe OiiuqluKMMFJCCFK3790-99-82 08:40:003.7[facility] JtnbomkQITBDHSKU6280-37-82 19:22:0024.0[facility] JjfwwibRKVPZQMRQD2569-27-40 19:22:00Positive *ABN*(02/17/2011 14:22:00) ??[facility] UzbopxaBHXKMVRDNG5831-89-86 19:22:001:40 *ABN*(02/17/2011 14:22:00) [facility]UCOSE PKSVFQE2838-39-39 15:42:80344.0[facility] HermannBEDSIDE GLUCOSE SKYEIWR4653-39-42 12:42:84333.0 [facility] WvgmonsOMNJYHBBK0265-77-73 09:15:002.3[facility] HermannCHEMISTRY 2011-02-17 09:15:0010.0[facility] CcfntxhGPFBNEJVP8246-06-05 09:15:000.5[facility] TmlhqicDSPCCBAFU4030-22-26 09:15:0047.0[facility] LwtxnoaKMRQBGEZN2755-15-73 09:15:0026.0[facility] TogtgnlAPULKOPRT7765-14-71 09:15:007.0[facility] DYXFQQEHY9891-97-79 09:15:008.5[facility] CpbymraMZUCCNOQH7417-22-99 09:15:0030.0 [facility] NukrimeVQAONDHSX5948-00-38 09:15:98063.0[facility] HermannCHEMISTRY 2011-02-17 09:15:004.5[facility] EixtxqrBENNXQPIA9704-98-96 09:15:002.9[facility] LndxvfgZHAAQLFLA4170-16-07 09:15:0016.0[facility] BvliribNPEBJRBIT4923-95-22 09:15:35486.0[facility] AbwkykaLXMKQFMBU1522-87-30 09:15:001.2[facility] LIOEAWMYV9203-61-38 09:15:39305.0[facility] UnghllgOSXMPZESD9094-97-62 09:15:00 Test Item Value Reference Range Interpretation Comments A/G Ratio (test code = A/G Ratio) 0.7 1 0.7-1.6 N [facility] TnthjquJEKSJYIYV2493-96-35 09:15:004.1[facility] HermannCHEMISTRY 2011-02-17 09:15:00 Test Item Value Reference Range Interpretation Comments B/C Ratio (test code = B/C Ratio) 13.0 1 6-25 N [facility] OduqgrpAGBLQVQLM8846-95-84 09:15:0012.5[facility] HermannCHEMISTRY 2011-02-17 09:15:003.2[facility] MecguhbXKAEERUMNC2437-75-05 09:15:93321.0[facility] RhfbwktYOBDVNPKKK8829-72-67 09:15:009.7[facility] NtiopcqEGZFSDVVIR9890-49-40 09:15:0014.1[facility] FcrxmqhZDJEVJDWGX7401-72-69 09:15:004.65[facility] VJZLKYNMMK6256-95-13 09:15:0015.1[facility] VhnxzcjNQTPDRWWQU9295-39-91 09:15:00 8.9[facility] OlgsjpfYDHFZXWPEH9844-19-59 09:15:0042.5[facility] HermannHEMATOLOGY 2011-02-17 09:15:0091.4[facility] JhvfynkFIMLPXODFA6811-92-25 09:15:0033.3[facility] OzworwlFOTTUGXUZL5051-52-06 09:15:00 Test Item Value Reference Range Interpretation Comments MCH (test code = MCH) 30.4 pg 27.0-31.0 N [facility] UxvtdndPZEDHXELOU6162-16-64 09:15:007.8[facility] HermannHEMATOLOGY 2011-02-17 09:15:000.8[facility] OwwwtggDORWFXZQJA7386-65-60 09:15:000.2[facility] NlylnvpQVASXJOFKN0699-86-22 09:15:000.0[facility] EueygnuEGZPLNUNDM1335-70-40 09:15:000.0[facility] SfdtmyeDZFMCIXPTD1172-85-84 09:15:009.5[facility] AXQODOKTZR5152-36-13 09:15:000.2[facility] LmtxmhiUEXELUNXQH4249-83-01 09:15:00 88.2[facility] OmcixseOMLCJLEWEB4867-72-99 09:15:000.3[facility] HermannHEMATOLOGY 2011-02-17 09:15:001.8[facility] HermannBEDSIDE GLUCOSE KCVLGLN8709-16-32 01:39:00 155.0[facility] JdvbejzLSLBGLMMUD0063-89-31 10:05:00 Test Item Value Reference Range Interpretation Comments INR (test code = INR) 1.07 1 0.85-1.17 N [facility] VfajdlePNLSRTQTNH4095-17-49 10:05:00 Test Item Value Reference Range Interpretation Comments PTT (test code = PTT) 28.8 s 22.9-35.8 N [facility] YvpslhoBBAGMKWPLT4348-20-58 10:05:00 Test Item Value Reference Range Interpretation Comments PT (test code = PT) 13.9 s 12.0-14.7 N [facility] HzyzwsoHKYUYCBSZ0155-07-34 09:15:002.8[facility] HermannCHEMISTRY 2011-02-16 09:15:0019.0[facility] HyucmreDQAKEWOVD9021-60-18 09:15:008.1[facility] KmrwizyDOHNMMZRW1410-20-27 09:15:006.4[facility] UcvzsjtREIHRDLXP3602-92-56 09:15:0027.0[facility] UxxddazGVGUIPJDS7854-99-52 09:15:002.7[facility] CJEZLCXWN8132-19-45 09:15:005.0[facility] BzetquxYXPSRFYUQ4870-81-43 09:15:000.4 [facility] MecffwkCYRNYDXDU6470-87-53 09:15:0038.0[facility] HermannCHEMISTRY 2011-02-16 09:15:0093.0[facility] WypkdbfLYNCVDZVU4059-87-23 09:15:003.6[facility] QompyguIIUCHVXOF7590-08-86 09:15:33836.0[facility] YaukiknPDKYWLSIN0122-47-24 09:15:57507.0[facility] QuapitsKLIZXOITN2485-76-50 09:15:0019.0[facility] AJUGENYJD8099-68-78 09:15:001.2[facility] ZtyawwgOLJMOQQTI3344-96-45 09:15:00 Test Item Value Reference Range Interpretation Comments A/G Ratio (test code = A/G Ratio) 0.7 1 0.7-1.6 N [facility] HoikehpHHJYBBYZA8281-53-06 09:15:003.7[facility] HermannCHEMISTRY 2011-02-16 09:15:00 Test Item Value Reference Range Interpretation Comments B/C Ratio (test code = B/C Ratio) 16.0 1 6-25 N [facility] WwxvyzuGWTUFXBDW6162-97-21 09:15:0011.6[facility] HermannCHEMISTRY 2011-02-16 09:15:002.3[facility] BruazujZNMUYWSSVG6645-27-01 09:15:0018.7[facility] JxsjkrhKAQWSAUAED6335-67-46 09:15:0075.9[facility] CktxvewIBKODZIRAP7527-75-47 09:15:000.0[facility] UjqlxsjIJJLETLVOE0452-65-71 09:15:000.1[facility] RGVMJUJYWP7459-07-57 09:15:001.8[facility] XbgboxqTWQTSFZMTW2946-15-26 09:15:000.4 [facility] GipnevrDSFDWREJFE1317-29-17 09:15:000.2[facility] HermannHEMATOLOGY 2011-02-16 09:15:007.3[facility] DlkilakIANXJYXDAQ6646-72-25 09:15:000.9[facility] TdocvfmKDIMSZJVCY2177-74-28 09:15:004.3[facility] PxvcqreQLMHANJXZU1706-29-50 09:15:0013.0[facility] SfqfzxrIQZFUVCSSD8136-72-59 09:15:0038.5[facility] VRYNMBSXHB5870-26-97 09:15:004.23[facility] EpvitvkUMFNXERFMD7477-84-30 09:15:00 9.6[facility] YxszufsMMWALUGXGV3220-56-19 09:15:00 Test Item Value Reference Range Interpretation Comments MCH (test code = MCH) 30.7 pg 27.0-31.0 N [facility] RmjkjsoUZECVMTAWI1192-34-55 09:15:0091.1[facility] HermannHEMATOLOGY 2011-02-16 09:15:0014.6[facility] KejmdvxVSXBUAVARM5422-91-91 09:15:0033.6[facility] YvmrrrpFHPMGPIQHU6621-91-75 09:15:75834.0[facility] FtmtxytOKMBBKMWXS3778-75-21 09:15:009.8[facility] HermannBACTERIAL - RGGAULEI3836-20-92 16:30:00Negative (02/15/2011 11:30:00) ??[facility] HermannMICRO MISC - GKOSWXET3525-71-34 16:30:00 Negative 1(02/15/2011 11:30:00) ??[facility] QumezqzPLQXTZUQH0251-02-91 11:10:00 0.9[facility] GfjktotTMPNQDCIT8904-67-03 11:10:0032.0[facility] HermannCHEMISTRY 2011-02-15 11:10:000.15[facility] ZtsoeeeQWAERBNLIC6669-23-71 11:10:000.0[facility] NdxoequHJZCQSVGRH1458-55-16 11:10:000.0[facility] ZrxmrvqQMHGPELGJD7120-85-57 11:10:000.8[facility] GvdadhvAVYAITECWP2758-01-85 11:10:002.0[facility] WVHAJFRAXX6624-25-79 11:10:007.1[facility] CsghahyPUEMLGWJQS4547-05-08 11:10:000.5 [facility] MfuhoosKQAHTMNMGR1771-06-03 11:10:000.3[facility] HermannHEMATOLOGY 2011-02-15 11:10:007.8[facility] TjnqptpGJXXHKXHDA1133-77-94 11:10:0020.3[facility] MiqpeuyYVSUNZEBEI5809-83-94 11:10:0071.1[facility] VsinrwoSDGPDDANOJ5296-49-90 11:10:0010.0[facility] AfknpskTCVABFTFEB9922-72-06 11:10:0091.5[facility] YAELAGBMHZ9985-24-92 11:10:0038.9[facility] KgewmvkOAHVAKQFEQ1496-93-54 11:10:00 4.25[facility] EjnmtduADQKKZQZYI9835-81-01 11:10:0012.9[facility] HermannHEMATOLOGY 2011-02-15 11:10:0033.2[facility] KnpuskmIOXSQXPBWS9017-95-18 11:10:00 Test Item Value Reference Range Interpretation Comments MCH (test code = MCH) 30.4 pg 27.0-31.0 N [facility] LcczdzrNKTCICMZGD7917-07-82 11:10:0010.0[facility] HermannHEMATOLOGY 2011-02-15 11:10:0014.9[facility] OmkkwxoEMLQOBXIOR0823-14-74 11:10:98346.0 [facility] HermannVIRAL - ZUQMFXGH2725-95-74 05:20:00Negative 5(02/15/2011 00:20:00) ??[facility] HermannVIRAL - YGRFIABV0805-46-65 05:20:00Negative (02/15/2011 00:20:00) ??[facility] LcfmlzoOSCYVJNGM7752-92-24 05:07:0037.0[facility] EduqktsYUXIRLYJB1788-43-64 05:07:000.15[facility] PwfqsnyJWLFIBJGI4035-92-68 00:24:000.14[facility] YirfqtmMUSXJBSSV7631-96-90 00:24:0048.0[facility] SOMSUHWYF6379-39-37 00:24:005.0[facility] PphtvyhKATHKVOHJ3434-12-81 00:24:0040.0 [facility] NtmjyzzBJUCPVMJF5519-06-32 00:24:000.5[facility] HermannCHEMISTRY 2011-02-15 00:24:003.3[facility] KfowrvqWZSUXAGVW8334-68-88 00:24:0016.0[facility] DemvvbrUYWYPXRBU8858-75-68 00:24:008.4[facility] QdsxudqZQFASEPRC1946-99-31 00:24:007.5[facility] DguudxrLEPIZZVHK9443-97-23 00:24:0027.0[facility] IXYRUWOMX9358-80-56 00:24:13985.0[facility] QyumnxbAIFJWCHNC8640-66-29 00:24:004.2 [facility] EfyarqiOVYSHGSTP0170-67-22 00:24:00 Test Item Value Reference Range Interpretation Comments A/G Ratio (test code = A/G Ratio) 0.8 1 0.7-1.6 N [facility] BldctumNDLTOQWSF2182-48-36 00:24:0013.9[facility] HermannCHEMISTRY 2011-02-15 00:24:00 Test Item Value Reference Range Interpretation Comments B/C Ratio (test code = B/C Ratio) 15.0 1 6-25 N [facility] QipauroVPSWUAJUL2756-29-38 00:24:003.9[facility] HermannCHEMISTRY 2011-02-15 00:24:60223.0[facility] LrlfpwrVNLECLWSQ5164-71-56 00:24:001.4[facility] KclitsbMDEQCXESM9757-29-01 00:24:0021.0[facility] UfazrmgLVNQFRQNF7322-59-04 00:24:02977.0[facility] XkhrxmnBPJPOBSOY7845-05-04 23:50:31921.0[facility] SQSMFMENJL9280-02-08 23:50:00 Test Item Value Reference Range Interpretation Comments PT (test code = PT) 14.2 s 12.0-14.7 N [facility] EucfeezMBRKFNXBCZ4025-51-96 23:50:00 Test Item Value Reference Range Interpretation Comments PTT (test code = PTT) 22.7 s 22.9-35.8 L [facility] HoustonFudnofcZVQOLMMBOI8847-93-90 23:50:00 Test Item Value Reference Range Interpretation Comments INR (test code = INR) 1.1 1 0.85-1.17 N [facility] EoyjfovTUTGSCMPSP5893-67-61 23:50:000.58[facility]annHEMATOLOGY 2011-02-14 23:50:00Normal (02/14/2011 18:50:00) ??[facility]annHEMATOLOGY 2011-02-14 23:50:00Normal (02/14/2011 18:50:00) ??[facility]
[2020-08-09 00:02] LABS: Lymphocytes % 21.6 % (15.3-44.8); MPV 9.5 fL (7.6-11.3); RBC Red Blood Cell Count 3.51 M/uL (4.33-5.43)
[2020-08-09 00:16] LABS: Protime INR 1.14
[2020-08-09 00:26] LABS: Albumin 2.8 g/dL (3.4-5.0); Bilirubin Direct 0.2 mg/dL (0-0.2); Bilirubin Total 0.6 mg/dL (0.2-1.0); Magnesium 2.1 mg/dL (1.8-2.4); Protein, Total 7.8 g/dL (6.4-8.2); Troponin (Emerg Dept Use Only) 0.19 ng/mL (0.0-0.045)
[2020-08-09 00:32] LABS: CKMB Creatine Kinase MB 1.1 ng/mL (0.3-3.6); Potassium 3.3 mmol/L (3.5-5.1)
[2020-08-09 00:38] LABS: Urine Bacteria 20-50 /HPF (NONE SEEN); Urine RBC <5 /HPF (NONE SEEN); Urine Yeast FEW (NONE SEEN)
--- NOTE | 2020-08-09 00:43 | EDPHYS ---
Physician Documentation [facility] Name: Tomas Suárez Age: 85 yrs Sex: Male : 1935 Arrival Date: 08/08/2020 Time: 18:26 Bed 25 Private MD: ASH Physician Anthony Ch HPI: 08/08 22:00 This 85 yrs old Black Male presents to ER via Wheelchair with complaints of Foot jr8 Swelling. 22:00 Patient presents for R lower leg swelling and wound check. He has a wound down anterior jr8 leg he received slipping down truck. Healing eschar is present. Wound is clean dry and intact. Circumferential pitting edema present on distal half of right leg. PMHx of CHF, HTN, DVTs. 08/09 00:37 Associated signs and symptoms: The patient has no apparent associated signs or jr8 symptoms. Modifying factors: The patient symptoms are alleviated by nothing, the patient symptoms are aggravated by nothing. The patient has not experienced similar symptoms in the past. The patient has not recently seen a physician. Historical: - Allergies: 08/08 18:55 Bactrim; ca1 18:55 Demerol; ca1 18:55 Plavix; ca1 18:55 Sulfa (Sulfonamide Antibiotics); ca1 - PMHx: 18:55 arrythmias; asbestos; Atrial Fib; borderline diabetic; CHF; CVA; Gout; High ca1 Cholesterol; Hyperlipidemia; Hypertension; kidney disease; Myocardial infarction; neuropathy; Pace maker; - PSHx: 18:55 pacemaker; cardiac stents x3; back sx; neck sx; ca1 - Immunization history:: Adult Immunizations unknown. - Social history:: Smoking status: Patient denies any tobacco usage or history of. ROS: 22:05 Cardiovascular: Negative for chest pain or palpitations. Positive for edema jr8 Respiratory: Negative for shortness of breath, cough, wheezing, and pleuritic chest pain, Abdomen/GI: Negative for abdominal pain, nausea, vomiting, diarrhea, and constipation, Neuro: Negative for headache, weakness, numbness, tingling, and seizure. 22:05 MS/extremity: Positive for swelling, of the right leg. 22:05 Skin: Positive for abrasion(s), of the right leg. 22:07 All other systems are negative. jr8 Exam: 22:05 Chest/axilla: Normal chest wall appearance and motion. Nontender with no deformity. jr8 No lesions are appreciated. Cardiovascular: Regular rate and rhythm with a normal S1 and S2. No gallops, murmurs, or rubs. Normal PMI, no JVD. No pulse deficits. Respiratory: Lungs have equal breath sounds bilaterally, clear to auscultation and percussion. No rales, rhonchi or wheezes noted. No increased work of breathing, no retractions or nasal flaring. Abdomen/GI: Soft, non-tender, with normal bowel sounds. No distension or tympany. No guarding or rebound. No evidence of tenderness throughout. Neuro: Awake and alert, GCS 15, oriented to person, place, time, and situation. Cranial nerves II-XII grossly intact. Motor strength 5/5 in all extremities. Sensory grossly intact. Cerebellar exam normal. Normal gait. 22:05 Musculoskeletal/extremity: Extremities: Pulses: are absent in the right posterior tibial artery and right dorsalis pedis artery due to edema, Perfusion: the patient is normally perfused throughout, Perfusion: the extremity is normally perfused throughout, Edema, 3+ to the right midcalf, right ankle, right foot and right toes is noted, Sensation intact. DVT Exam: No signs of deep vein thrombosis. Vital Signs: 18:47 BP 115 / 67; Pulse 79; Resp 18 S; Temp 97.3(TE); Pulse Ox 100% on R/A; Weight 131.09 kg ca1 (R); Height 6 ft. 4 in. (193.04 cm) (R); Pain 10/10; 21:45 BP 144 / 62; Pulse 70; Resp 18; Pulse Ox 100% on R/A; jb4 22:15 BP 157 / 84; Pulse 81; Resp 18; Pulse Ox 100% on R/A; jb4 23:45 BP 114 / 48; Pulse 71; Resp 18; Pulse Ox 100% on R/A; jb4 08/09 00:50 BP 118 / 75; Pulse 75; Resp 16; Pulse Ox 98% ; rr5 01:25 BP 125 / 85; Pulse 80; Resp 18; Pulse Ox 98% ; rr5 08/08 18:47 Body Mass Index 35.18 (131.09 kg, 193.04 cm) ca1 MDM: 08/08 21:43 Patient medically screened. jr8 08/09 00:37 Data reviewed: vital signs, nurses notes, lab test result(s), radiologic studies, plain [facility] films, ultrasound. Data interpreted: Pulse oximetry: on room air is 100 %. Interpretation: normal. Counseling: I had a detailed discussion with the patient and/or guardian regarding: the historical points, exam findings, and any diagnostic results supporting the discharge/admit diagnosis, lab results, radiology results, the need for outpatient follow up, a family practitioner, to return to the emergency department if symptoms worsen or persist or if there are any questions or concerns that arise at home. ED course: Patient without active pulmonary edema. Patient without DVT. No signs of local infection to his healing wound or surrounding tissues. Patient does have swelling to lower legs with right side being more pronounced. Pitting in nature. Could be venous insufficiency vs. lymphedema. Will diurese while here to help and then have him f/u with PCP. Patient also had mild elevation in troponin. This was compared to previous studies and seems to be his baseline. Again no CP, SOB, or anginal equivalent findings on exam or per patient . 08/08 21:45 Order name: Basic Metabolic Panel [facility] 08/08 21:45 Order name: Blood Culture Adult (2) [facility] 08/08 21:45 Order name: CBC with Diff [facility] 08/08 21:45 Order name: Ckmb [facility] 08/08 21:45 Order name: CPK [facility] 08/08 21:45 Order name: Lactate [facility] 08/08 21:45 Order name: Procalcitonin [facility] 08/08 21:45 Order name: Urine Microscopic Only; Complete Time: 00:43 [facility] 08/08 21:46 Order name: Basic Metabolic Panel; Complete Time: 00:33 [facility] 08/08 21:46 Order name: CBC with Automated Diff; Complete Time: 00:12 [facility] 08/08 21:46 Order name: CKMB Creatine Kinase MB; Complete Time: 00:33 [facility] 08/08 21:46 Order name: Creatine Phosphokinase; Complete Time: 00:33 [facility] 08/08 21:45 Order name: IV Saline Lock - Large Bore; Complete Time: 00:17 [facility] 08/08 21:46 Order name: Procalcitonin; Complete Time: 01:28 [facility] 08/08 21:53 Order name: Magnesium [facility] 08/08 21:53 Order name: LFT's [facility] 08/08 21:53 Order name: NT PRO-BNP; Complete Time: 00:30 [facility] 08/08 21:53 Order name: PT-INR; Complete Time: 00:22 [facility] 08/08 21:53 Order name: Troponin (emerg Dept Use Only); Complete Time: 00:30 [facility] 08/08 21:53 Order name: XRAY Chest (1 view) [facility] 08/08 21:53 Order name: EKG; Complete Time: 21:54 [facility] 08/08 21:54 Order name: Magnesium; Complete Time: 00:30 [facility] 08/08 21:54 Order name: Liver (Hepatic) Function; Complete Time: 00:30 [facility] 08/08 22:04 Order name: US Extremity Venous Unilateral Ltd [facility] 08/09 00:40 Order name: Urine Culture [facility] 08/08 21:45 Order name: Labs collected and sent; Complete Time: 00:16 [facility] 08/08 21:45 Order name: O2 Per Protocol; Complete Time: 23:22 [facility] 08/08 21:45 Order name: O2 Sat Monitoring; Complete Time: 23:22 [facility] 08/08 21:45 Order name: Urine Dipstick-Ancillary (obtain specimen); Complete Time: 23:25 [facility] 08/08 21:53 Order name: EKG - Nurse/Tech; Complete Time: 23:22 [facility] Administered Medications: 00:41 Drug: Lasix (furosemide) 60 mg Route: IVP; Site: Other; rr5 01:30 Follow up: Response: No adverse reaction rr5 00:50 Drug: Potassium Chloride 20 mEq Route: PO; rr5 01:29 Follow up: Response: No adverse reaction rr5 Disposition: 08:12 Co-signature as Attending Physician, Anthony Ch MD I agree with the assessment and iman plan of care. Disposition: 08/09/20 00:42 Discharged to Home. Impression: Lower Extremity Edema . - Condition is Stable. - Discharge Instructions: Lymphedema, Peripheral Edema. - Medication Reconciliation Form, Thank You Letter, Antibiotic Education, Prescription Opioid Use form. - Follow up: Private Physician; When: 2 - 3 days; Reason: Recheck today's complaints, Continuance of care, Re-evaluation by your physician. - Problem is new. - Symptoms have improved. Signatures: Dispatcher [employer] EDAnthony Johnson MD MD cha Roszak, Josh, PA PA jr8 Narendra Avalos, RN RN rr5 Eden Pritchard RN RN ca1 Corrections: (The following items were deleted from the chart) 00:38 04 22:05 Cardiovascular: Negative for chest pain, palpitations, and edema, jr8 Respiratory: Negative for shortness of breath, cough, wheezing, and pleuritic chest pain, Abdomen/GI: Negative for abdominal pain, nausea, vomiting, diarrhea, and constipation, Neuro: Negative for headache, weakness, numbness, tingling, and seizure, jr8 08/09 01:30 00:42 08/09/2020 00:42 Discharged to Home. Impression: Lower Extremity Edema . rr5 Condition is Stable. Forms are Medication Reconciliation Form, Thank You Letter, Antibiotic Education, Prescription Opioid Use. Follow up: Private Physician; When: 2 - 3 days; Reason: Recheck today's complaints, Continuance of care, Re-evaluation by your physician. Problem is new. Symptoms have improved. jr8
--- NOTE | 2020-08-09 00:43 | ER ---
Nurse's Notes [facility] Name: Tomas Suárez Age: 85 yrs Sex: Male : 1935 Arrival Date: 08/08/2020 Time: 18:26 Bed 25 Private MD: Diagnosis: Lower Extremity Edema Presentation: 08/08 18:47 Chief complaint: Chief complaint: Patient states: R foot swelling x 2 weeks. Had a ca1 abrasion on the R burk, was here to be checked. Completed ABX, a nurse comes by to clean and dressed the wound everyday. R foot swelling is just getting worse. Complains of pain on the R leg. Coronavirus screen: Client denies travel out of the [place] in the last 14 days. At this time, the client does not indicate any symptoms associated with coronavirus-19. Ebola Screen: Patient negative for fever greater than or equal to 101.5 degrees Fahrenheit, and additional compatible Ebola Virus Disease symptoms Patient denies exposure to infectious person. Patient denies travel to an Ebola-affected area in the 21 days before illness onset. No symptoms or risks identified at this time. Initial Sepsis Screen: Does the patient meet any 2 criteria? No. Patient's initial sepsis screen is negative. Does the patient have a suspected source of infection? No. Patient's initial sepsis screen is negative. Risk Assessment: Do you want to hurt yourself or someone else? Patient reports no desire to harm self or others. Onset of symptoms was August 08, 2020. 18:47 Method Of Arrival: Wheelchair ca1 18:47 Acuity: CORNELIUS 3 ca1 Historical: - Allergies: 18:55 Bactrim; ca1 18:55 Demerol; ca1 18:55 Plavix; ca1 18:55 Sulfa (Sulfonamide Antibiotics); ca1 - PMHx: 18:55 arrythmias; asbestos; Atrial Fib; borderline diabetic; CHF; CVA; Gout; High ca1 Cholesterol; Hyperlipidemia; Hypertension; kidney disease; Myocardial infarction; neuropathy; Pace maker; - PSHx: 18:55 pacemaker; cardiac stents x3; back sx; neck sx; ca1 - Immunization history:: Adult Immunizations unknown. - Social history:: Smoking status: Patient denies any tobacco usage or history of. Screenin/02 00:30 Abuse screen: Denies threats or abuse. Denies injuries from another. Nutritional rr5 screening: No deficits noted. Tuberculosis screening: No symptoms or risk factors identified. Fall Risk IV access (20 points). Total Thompson Fall Scale indicates No Risk (0-24 pts). Assessment: 08/08 21:45 General: Appears in no apparent distress. uncomfortable, Behavior is calm, cooperative, jb4 appropriate for age. Pain: Complains of pain in right leg Pain does not radiate. Pain currently is 10 out of 10 on a pain scale. Neuro: Level of Consciousness is awake, alert, obeys commands, Oriented to person, place, time, situation. Cardiovascular: Patient's skin is warm and dry. Respiratory: Airway is patent Respiratory effort is even, unlabored, Respiratory pattern is regular, symmetrical. GI: No signs and/or symptoms were reported involving the gastrointestinal system. : No signs and/or symptoms were reported regarding the genitourinary system. EENT: No signs and/or symptoms were reported regarding the EENT system. Derm: Skin is intact, Skin is pink, warm \T\ dry. Musculoskeletal: Circulation, motion, and sensation intact. Range of motion: intact in all extremities. 23:00 Reassessment: Patient appears in no apparent distress at this time. Patient and/or jb4 family updated on plan of care and expected duration. Pain level reassessed. Patient is alert, oriented x 3, equal unlabored respirations, skin warm/dry/pink. 08/09 00:18 Reassessment: Patient appears in no apparent distress at this time. Patient and/or jb4 family updated on plan of care and expected duration. Pain level reassessed. Patient is alert, oriented x 3, equal unlabored respirations, skin warm/dry/pink. 01:30 Reassessment: Patient appears in no apparent distress at this time. Patient is alert, rr5 oriented x 3, equal unlabored respirations, skin warm/dry/pink. discharge instruction given and explained without complaints made Patient states symptoms have improved. Vital Signs: 08/08 18:47 BP 115 / 67; Pulse 79; Resp 18 S; Temp 97.3(TE); Pulse Ox 100% on R/A; Weight 131.09 kg ca1 (R); Height 6 ft. 4 in. (193.04 cm) (R); Pain 10/10; 21:45 BP 144 / 62; Pulse 70; Resp 18; Pulse Ox 100% on R/A; jb4 22:15 BP 157 / 84; Pulse 81; Resp 18; Pulse Ox 100% on R/A; jb4 23:45 BP 114 / 48; Pulse 71; Resp 18; Pulse Ox 100% on R/A; jb4 08/09 00:50 BP 118 / 75; Pulse 75; Resp 16; Pulse Ox 98% ; rr5 01:25 BP 125 / 85; Pulse 80; Resp 18; Pulse Ox 98% ; rr5 08/08 18:47 Body Mass Index 35.18 (131.09 kg, 193.04 cm) ca1 ED Course: 08/08 18:26 Patient arrived in ED. ds1 18:54 Triage completed. ca1 18:55 Arm band placed on right wrist. ca1 21:43 Mike Dodson PA is PHCP. jr8 21:43 Anthony Ch MD is Attending Physician. jr8 22:00 Juno Neil, ROMY is Primary Nurse. jb4 22:32 US Extremity Venous Unilateral Ltd In Process Unspecified. EDMS 22:57 XRAY Chest (1 view) In Process Unspecified. EDMS 08/09 00:30 Patient has correct armband on for positive identification. Placed in gown. Bed in low rr5 position. 00:30 Pulse ox on. NIBP on. rr5 00:30 Inserted saline lock: 20 gauge in right EJ, using aseptic technique. ,using aseptic rr5 technique. received with IV inserted by lucian BRYAN. 01:30 No provider procedures requiring assistance completed. IV discontinued, intact, rr5 bleeding controlled, No redness/swelling at site. Pressure dressing applied. Administered Medications: 00:41 Drug: Lasix (furosemide) 60 mg Route: IVP; Site: Other; rr5 01:30 Follow up: Response: No adverse reaction rr5 00:50 Drug: Potassium Chloride 20 mEq Route: PO; rr5 01:29 Follow up: Response: No adverse reaction rr5 Outcome: 00:42 Discharge ordered by . jr8 01:29 Discharged to home via wheelchair, with family. rr5 01:29 Condition: stable 01:29 Discharge instructions given to patient, Instructed on discharge instructions, follow up and referral plans. Demonstrated understanding of instructions, follow-up care. 01:30 Patient left the ED. rr5 Addendum: 08/20/2020 10:45 Addendum: Culture Results: Positive urine culture. Spoke to pt [id number], pt a a5 states his PCP prescribed him cephalexin and he finished it 08/19/20, pt denies urinary symptoms, pt was instructed to f/u with PCP per Dr. Greene. Signatures: Dispatcher [employer] [facility] Anna Jordan ds1 Coco Leon, RN RN aa5 Mike Dodson PA PA jr8 Juno Neil, RN RN jb4 Narendra Avalos, RN RN rr5 Eden Pritchard RN RN ca1
[2020-08-09] MEDS ORDERED: FUROSEMIDE 20 MG/ 2ML VIAL ONE (00:53)
[2020-08-09] MEDS ORDERED: FUROSEMIDE 40 MG/4 ML VIAL ONE (00:54)
[2020-08-09] MEDS ORDERED: POTASSIUM CL SA 10 MEQ TAB PO ONE (01:00)
--- NOTE | 2020-08-09 09:13 | RAD REPORT ---
EXAM DESCRIPTION: US - Extremity Venous Uni Ltd - 08/08/2020 10:31 pm CLINICAL HISTORY: Pain;Swelling COMPARISON: None. TECHNIQUE: Real-time sonographic evaluation of the right lower extremity deep venous systems was per formed. FINDINGS: Normal compressibility, flow augmentation, phasic flow and spontaneous flow are identified in the right lower extremity common femoral, superficial femoral, popliteal and posterior tibial vei ns. No intraluminal filling defects seen. IMPRESSION: No DVT in the right lower extremity.
--- NOTE | 2020-08-09 09:29 | RAD REPORT ---
EXAM DESCRIPTION: RAD - Chest Single View - 08/08/2020 10:57 pm CLINICAL HISTORY: SWELLING, shortness of breath COMPARISON: Portable July 05, June 04 TECHNIQUE: AP portable chest image was obtained 08/08/2020 10:57 pm . FINDINGS: Baseline prominence of the interstitial pattern is similar or slightly less pronounced samina n comparison. Cardiomegaly is present. Mild vascular engorgement is seen slightly less pronounced samina n seen previously. No measurable pleural effusion and no pneumothorax. No acute bony abnormality seen . No acute aortic findings suspected. IMPRESSION: Heart, vasculature and lung markings are prominent but less pronounced compared to the 2 earlier studies. Findings still likely represent a mild CHF or volume overload.
[2020-08-09 21:22] VITALS: TEMP 97.3; O2SAT 100
[2020-08-09 21:33] VITALS: BP 114/48
[2020-08-14 14:06] LABS: Urine Blood Trace-intact (Negative); Urine Glucose Negative (Negative); Urine Protein Negative (Negative)
== END 2020-08-09 01:30 | disposition home or self-care (01) ==
LOC: ER 18:19
DX: R60.0 Localized edema (principal); I10 Essential (primary) hypertension; Z95.0 Presence of cardiac pacemaker; Z95.818 Presence of other cardiac implants and grafts; Z88.1 Allergy status to other antibiotic agents; Z88.2 Allergy status to sulfonamides; Z88.5 Allergy status to narcotic agent; Z88.8 Allergy status to other drugs, medicaments and biological substances
CPT/HCPCS: 93005; 87088; 85025; 87086; 80048; 36415; 83735; 82550; 85610; 80076; 87077; 87186; 84484; 82553; 84145; 83880; 71045; 93971; 96374; 99284; J1940 ×2; 81003; 81015

== ENCOUNTER 2020-08-24 21:01 | Inpatient (IN) | payer OTHER ==
--- OUTSIDE RECORDS SUMMARY | 2020-08-24 21:03 | XMS REPORT | Continuity of Care Document ---
:1935 Author Organization [facility] t Address [address] [place] [address] Care Team Providers Name Role Phone Jose Eduardo Marc Primary Care Physician Juanita Wolf Attending Clinician Ginger Morrison Attending Clinician Roshni Morrison Attending Clinician Alexus Attending Clinician Abel Catalan Attending Clinician Amanda Anderson Attending Clinician Charles Mercado Attending Clinician Chace Forbes Attending Clinician Chaitanya Monterroso Attending Clinician Lsely Cox Attending Clinician Juanita Wolf Admitting Clinician Roshni Morrison Admitting Clinician Alexus Admitting Clinician Amanda Anderson Admitting Clinician Lesly Cox Admitting Clinician Problems Condition Condition Condition Status Onset Resolution Last Treating Co mments Source Name Details Category Date Date Treatment Clinician Date Acute deep Acute deep Disease Active 2016-05 [place] vein vein 2-05 [facility] thrombosis thrombosis 00:00: st (DVT) of (DVT) of 00 both lower both lower extremitie extremitie s s Allergies, Adverse Reactions, Alerts Allergy Allergy Status Severity Reaction(s) Onset Inactive Treating Comm ents Source Name Type Date Date Clinician Sulfamet Propensi Active 2016-05 [place] hox[place] to 2-05 [facility] -Trimeth adverse 00:00: st oprim reaction 00 s to drug [facility] adverse 00:[facility]: st reaction 00 s to drug Sulfa Propensi Active 2016-05 [place] (Sulfona ty to 2-05 [facility] mide adverse 00:00: st Antibiot reaction 00 ics) s to drug Social History Social Habit Start Date Stop Date Quantity Comments Source Alcohol intake 2017-04-23 2017-04-23 Current [facility] 00:00:00 00:00:00 non-drinker of alcohol (finding) Sex Ass[birth year] [facility] ethodist 00:00:00 00:00:00 Smoking Status Start Date Stop Date Source Never smoker [place] [facility] t Medications Ordered Filled Start Stop Current Ordering Indication Dosage Frequency Signature Comments Components Source Medication Medication Date Date Medication? Clinician (SIG) Name Name tamsulosin 2016-05 Yes .4mg QD Take 0.4 [...] MG 11:45: mouth st tablet 44 daily. Procedures This patient has no known procedures. Plan of Care Planned Activity Planned Date Details Comments Source Future Scheduled 2020-12-08 INFLUENZA VACCINE [place] [facility] 00:00:00 [code = INFLUENZA VACCINE] Future Scheduled 2000 65+ PNEUMOCOCCAL [facility] 00:00:00 VACCINE (1 of 1 - PPSV23) [code = 65+ PNEUMOCOCCAL VACCINE (1 of 1 - PPSV23)] Future Scheduled 1985 SHINGLES VACCINES (#1) H marco antonio [facility] 00:00:00 [code = SHINGLES VACCINES (#1)] Future Scheduled 1951 COVID-19 VACCINE (1) Shayla deng [facility] 00:00:00 [code = COVID-19 VACCINE (1)] Encounters Start End Encounter Admission Attending Care Care Encounter Source Date/Time Date/Time Type Type Clinicians Facility Department ID 2018-11-29 Inpatient [facility] [id number] [id number] 22:21:00 2018-11-29 2018-12-01 Outpatient Maryann [facility] [id number] 22:21:00 17:00:00 Cecy Eugene Grant 2018-04-19 2018-04-19 Outpatient [facility], [place] [id number] 08:00:00 08:00:00 Arnaldo Clement Ginger 2018-03-25 2018-03-29 Outpatient [facility] [id number] 15:02:00 16:28:00 Kavita 20 A 2017-04-10 2017-04-11 Outpatient [facility] [id number] 14:03:00 15:23:00 Kavita 34 A 2017-03-16 2017-03-23 Outpatient [facility] [id number] 12:02:00 18:17:00 Kavita 18 A 2016-03-09 2016-03-11 Outpatient Morrison, [facility] [id number] 12:18:00 16:44:00 Kavita 05 A 2016-01-17 2016-01-18 Outpatient Alexus, [facility] [id number] 16:15:00 12:05:00 Alverto 17 2015-05-28 2015-05-28 Outpatient Elizabeth Catalan [facility] [id number] 14:59:00 17:26:00 Abel 15 2015-04-21 2015-04-24 Outpatient Justin, [facility] [id number] 00:14:00 17:10:00 Mike Patel 46 2015-02-02 2015-02-02 Outpatient Jess, [facility] [id number] 15:30:00 19:16:00 Pop Soto 14 2014-07-06 2014-07-06 Outpatient Andrei, [facility] [id number] 18:18:00 22:22:00 Abdon Mas 13 2014-04-02 2014-04-02 Outpatient Kriss, [facility] [id number] 06:14:00 11:55:00 Terry 12 Chaitanya 2014-02-25 2014-03-05 Outpatient Bari Cox [facility] [id number] 18:17:00 20:10:00 Lesly 11 2014-01-26 2014-01-28 Outpatient Bari Cox [facility] [id number] 06:24:00 17:14:00 Lesly 62 Results This patient has no known results.
[2020-08-24 22:09] LABS: Absolute Lymphocytes (CBC) 1.2 K/uL (0.7-4.9); Basophils % 0.9 % (0-1.3); Lymphocytes % 27.8 % (15.3-44.8); MPV 8.6 fL (7.6-11.3); RBC Red Blood Cell Count 3.44 M/uL (4.33-5.43)
[2020-08-24 22:17] LABS: Protime INR 1.28
[2020-08-24 22:29] LABS: Albumin 3.1 g/dL (3.4-5.0); Bilirubin Direct 0.2 mg/dL (0-0.2); Bilirubin Total 0.6 mg/dL (0.2-1.0); Potassium 3.7 mmol/L (3.5-5.1); Protein, Total 8.3 g/dL (6.4-8.2); Troponin (Emerg Dept Use Only) 0.2 ng/mL (0.0-0.045)
--- NOTE | 2020-08-24 23:54 | EDPHYS ---
Physician Documentation [facility] Name: Tomas Suárez Age: 85 yrs Sex: Male : 1935 Arrival Date: 08/24/2020 Time: 21:04 Bed 14 Private MD: ASH Physician Markel Ayers HPI: 08/24 22:06 This 85 yrs old Black Male presents to ER via Wheelchair with complaints of Feet mh7 Swelling. 22:06 The patient presents with swelling. The complaints affect the right leg and left leg. mh7 Context: The problem was sustained at an unknown site, resulted from an unknown cause, the patient can fully bear weight, the patient is able to ambulate, without difficulty, Problem is a result from a previous injury: No. Onset: The symptoms/episode began/occurred 1 month(s) ago. Modifying factors: The symptoms are alleviated by nothing. the symptoms are aggravated by nothing. Associated signs and symptoms: Pertinent positives: swelling, Pertinent negatives calf tenderness, fever, nausea, numbness, rash, tingling, vomiting, warmth, weakness. Treatment prior to arrival includes: no previous treatment. Severity of symptoms: At their worst the symptoms were moderate, 14 day(s) ago, in the emergency department the symptoms are unchanged. The patient has experienced similar episodes in the past, several times. Historical: - Allergies: 21:14 Bactrim; ca1 21:14 Demerol; ca1 21:14 Plavix; ca1 21:14 Sulfa (Sulfonamide Antibiotics); ca1 - PMHx: 21:14 asbestos; Atrial Fib; arrythmias; borderline diabetic; CHF; CVA; High Cholesterol; ca1 Hyperlipidemia; kidney disease; Hypertension; Gout; Myocardial infarction; neuropathy; Pace maker; - PSHx: 21:14 pacemaker; cardiac stents x3; back sx; neck sx; ca1 - Immunization history:: Client reports receiving the 2nd dose of the Covid vaccine, Client reports receiving the 1st dose of the Covid vaccine, Flu vaccine is up to date. - Social history:: Smoking status: Patient denies any tobacco usage or history of. ROS: 22:06 Constitutional: Negative for fever, chills, and weight loss, Eyes: Negative for injury, mh7 pain, redness, and discharge, ENT: Negative for injury, pain, and discharge, Neck: Negative for injury, pain, and swelling, Cardiovascular: Negative for chest pain, palpitations, and edema, Respiratory: Negative for shortness of breath, cough, wheezing, and pleuritic chest pain, Abdomen/GI: Negative for abdominal pain, nausea, vomiting, diarrhea, and constipation, Back: Negative for injury and pain, : Negative for injury, bleeding, discharge, and swelling, Skin: Negative for injury, rash, and discoloration, Neuro: Negative for headache, weakness, numbness, tingling, and seizure, Psych: Negative for depression, anxiety, suicide ideation, homicidal ideation, and hallucinations, Allergy/Immunology: Negative for hives, rash, and allergies, Endocrine: Negative for neck swelling, polydipsia, polyuria, polyphagia, and marked weight changes, Hematologic/Lymphatic: Negative for swollen nodes, abnormal bleeding, and unusual bruising. Exam: 22:06 Constitutional: This is a well developed, well nourished patient who is awake, alert, mh7 and in no acute distress. Head/Face: Normocephalic, atraumatic. Eyes: Pupils equal round and reactive to light, extra-ocular motions intact. Lids and lashes normal. Conjunctiva and sclera are non-icteric and not injected. Cornea within normal limits. Periorbital areas with no swelling, redness, or edema. Neck: Trachea midline, no thyromegaly or masses palpated, and no cervical lymphadenopathy. Supple, full range of motion without nuchal rigidity, or vertebral point tenderness. No Meningismus. Chest/axilla: Normal chest wall appearance and motion. Nontender with no deformity. No lesions are appreciated. Cardiovascular: Regular rate and rhythm with a normal S1 and S2. No gallops, murmurs, or rubs. Normal PMI, no JVD. No pulse deficits. Respiratory: Lungs have equal breath sounds bilaterally, clear to auscultation and percussion. No rales, rhonchi or wheezes noted. No increased work of breathing, no retractions or nasal flaring. Abdomen/GI: Soft, non-tender, with normal bowel sounds. No distension or tympany. No guarding or rebound. No evidence of tenderness throughout. Back: No spinal tenderness. No costovertebral tenderness. Full range of motion. Skin: Warm, dry with normal turgor. Normal color with no rashes, no lesions, and no evidence of cellulitis. 22:06 Neuro: Awake and alert, GCS 15, oriented to person, place, time, and situation. Cranial nerves II-XII grossly intact. Motor strength 5/5 in all extremities. Sensory grossly intact. Cerebellar exam normal. Normal gait. Psych: Awake, alert, with orientation to person, place and time. Behavior, mood, and affect are within normal limits. 22:06 Musculoskeletal/extremity: Extremities: noted in the bilateral lower legs/feet: swelling, ROM: intact in all extremities, Circulation is intact in all extremities. Pulses: are normal with no appreciated deficits, Perfusion: the patient is normally perfused throughout, Perfusion: the extremity is normally perfused throughout, Calf tenderness, is absent, Edema, 3+ to the left midcalf, left ankle, left foot, right midcalf, right ankle and right foot is noted, Sensation intact. Compartment Syndrome exam of affected extremity: is normal. no pain, no numbness, no tingling, no sensation deficit, no palor, no weak pulses, Joints: All joints appear normal with full range of motion. Weight bearing: able to fully bear weight, without difficulty, Tendon exam: specific tendon testing normal through active and passive range of motion DVT Exam: no pain, no tenderness, negative Homans' sign noted on exam, no appreciated bluish discoloration, no erythema, no increased warmth, swelling, Calves: are non-tender, have equal circumference. Vital Signs: 21:11 BP 117 / 57; Pulse 59; Resp 17 S; Temp 97.2(TE); Pulse Ox 100% on R/A; Weight 135.17 kg ca1 (R); Height 6 ft. 4 in. (193.04 cm) (R); Pain 0/10; 23:20 BP 115 / 62; Pulse 58; Resp 17; Pulse Ox 98% ; rr5 08/25 00:00 BP 131 / 60; Pulse 71; Resp 18; Pulse Ox 98% ; rr5 01:29 BP 108 / 59; Pulse 68; Resp 18; Pulse Ox 98% ; ea 08/24 21:11 Body Mass Index 36.27 (135.17 kg, 193.04 cm) ca1 MDM: 08/24 23:50 Differential diagnosis: Peripheral edema, CHF. Data reviewed: vital signs, nurses 7 notes, lab test result(s), cardiac enzymes, CBC, electrolytes, EKG, radiologic studies, plain films. Data interpreted: Pulse oximetry: on room air is 98 %. Interpretation: normal. Counseling: I had a detailed discussion with the patient and/or guardian regarding: the historical points, exam findings, and any diagnostic results supporting the discharge/admit diagnosis, lab results, radiology results, the need for further work-up and treatment in the hospital. Response to treatment: the patient's symptoms have mildly improved after treatment. 23:53 Patient medically screened. [facility] 08/24 21:33 Order name: Basic Metabolic Panel [facility] 08/24 21:33 Order name: CBC with Diff [facility] 08/24 21:33 Order name: LFT's [facility] 08/24 21:33 Order name: Magnesium [facility] 08/24 21:33 Order name: NT PRO-BNP; Complete Time: 22:54 [facility] 08/24 21:33 Order name: PT-INR; Complete Time: 22:54 [facility] 08/24 21:33 Order name: Troponin (emerg Dept Use Only); Complete Time: 22:54 [facility] 08/24 21:33 Order name: XRAY Chest (1 view) [facility] 08/24 21:33 Order name: Basic Metabolic Panel; Complete Time: 22:54 [facility] 08/24 21:33 Order name: CBC with Automated Diff; Complete Time: 22:19 [facility] 08/24 21:33 Order name: Liver (Hepatic) Function; Complete Time: 22:54 [facility] 08/24 21:33 Order name: Magnesium; Complete Time: 22:54 [facility] 08/25 01:04 Order name: SARS-COV-2 RT PCR [facility] 08/24 21:33 Order name: EKG; Complete Time: 21:34 [facility] 08/24 21:33 Order name: Cardiac monitoring; Complete Time: 22:04 [facility] 08/24 21:33 Order name: EKG - Nurse/Tech; Complete Time: 22:04 [facility] 08/24 21:33 Order name: IV Saline Lock; Complete Time: 22:04 [facility] 08/24 21:33 Order name: Labs collected and sent; Complete Time: 22:04 [facility] 08/24 21:33 Order name: O2 Per Protocol; Complete Time: 22:04 [facility] 08/24 21:33 Order name: O2 Sat Monitoring; Complete Time: 22:04 [facility] 08/24 21:33 Order name: Urine Dipstick-Ancillary (obtain specimen); Complete Time: 01:57 7 Administered Medications: 08/25 00:00 Drug: Lasix (furosemide) 60 mg Route: IVP; Site: right upper arm; rr5 00:41 Follow up: Response: No adverse reaction rr5 Disposition: 08/24/20 23:53 Hospitalization ordered by Narendra Franks for Inpatient Admission. Preliminary diagnosis is CHF Exacerbation. - Bed requested for Telemetry/MedSurg (Inpatient). - Status is Inpatient Admission. ea - Condition is Stable. - Problem is an acute exacerbation. - Symptoms have improved. Signatures: Dispatcher [employer] EDMN Gerson Shannon, OFFSET PRESS OPERATOR HELPER-C OFFSET PRESS OPERATOR HELPER-Cla1 Yesica Boswell, RN RN cg Jud Simpson RN RN Narendra Hewitt, RN RN rr5 Eden Pritchard RN RN [facility] Markel yAers MD MD 7 Corrections: (The following items were deleted from the chart) 00:17 08/24 23:27 CORONAVIRUS+MR.LAB.BRZ ordered. [facility] 08/25 01:11 08/24 23:53 Hospitalization Ordered by Narendra Franks MD for Inpatient Admission. cg Preliminary diagnosis is CHF Exacerbation. Bed requested for Telemetry/MedSurg (Inpatient). Status is Inpatient Admission. Condition is Stable. Problem is an acute exacerbation. Symptoms have improved. [facility] 08/25 01:30 01:11 08/24/2020 23:53 Hospitalization Ordered by Narendra Franks MD for Inpatient ea Admission. Preliminary diagnosis is CHF Exacerbation. Bed requested for Telemetry/MedSurg (Inpatient). Status is Inpatient Admission. Condition is Stable. Problem is an acute exacerbation. Symptoms have improved. cg
--- NOTE | 2020-08-24 23:54 | ER ---
Nurse's Notes [facility] Name: Tomas Suárez Age: 85 yrs Sex: Male : 1935 Arrival Date: 08/24/2020 Time: 21:04 Bed 14 Private MD: Diagnosis: CHF Exacerbation Presentation: 08/24 21:11 Chief complaint: Patient states: Swelling on calin legs, worse yesterday. HX of CHF. ca1 Denies SOB. Coronavirus screen: Client denies travel out of the [place] in the last 14 days. At this time, the client does not indicate any symptoms associated with coronavirus-19. Ebola Screen: Patient negative for fever greater than or equal to 101.5 degrees Fahrenheit, and additional compatible Ebola Virus Disease symptoms Patient denies exposure to infectious person. Patient denies travel to an Ebola-affected area in the 21 days before illness onset. No symptoms or risks identified at this time. Initial Sepsis Screen: Does the patient meet any 2 criteria? No. Patient's initial sepsis screen is negative. Does the patient have a suspected source of infection? No. Patient's initial sepsis screen is negative. Risk Assessment: Do you want to hurt yourself or someone else? Patient reports no desire to harm self or others. Onset of symptoms was August 24, 2020. 21:11 Method Of Arrival: Wheelchair ca1 21:11 Acuity: CORNELIUS 3 ca1 Historical: - Allergies: 21:14 Bactrim; ca1 21:14 Demerol; ca1 21:14 Plavix; ca1 21:14 Sulfa (Sulfonamide Antibiotics); ca1 - PMHx: 21:14 asbestos; Atrial Fib; arrythmias; borderline diabetic; CHF; CVA; High Cholesterol; ca1 Hyperlipidemia; kidney disease; Hypertension; Gout; Myocardial infarction; neuropathy; Pace maker; - PSHx: 21:14 pacemaker; cardiac stents x3; back sx; neck sx; ca1 - Immunization history:: Client reports receiving the 2nd dose of the Covid vaccine, Client reports receiving the 1st dose of the Covid vaccine, Flu vaccine is up to date. - Social history:: Smoking status: Patient denies any tobacco usage or history of. Screenin:05 Abuse screen: Denies threats or abuse. Denies injuries from another. Nutritional rr5 screening: No deficits noted. Tuberculosis screening: No symptoms or risk factors identified. Fall Risk IV access (20 points). Mental Status- Oriented to own ability (0 pts). Total Thompson Fall Scale indicates No Risk (0-24 pts). Assessment: 22:06 General: Appears in no apparent distress. comfortable, Behavior is calm, cooperative, rr5 appropriate for age. Pain: Denies pain. Neuro: Level of Consciousness is awake, alert, obeys commands, Oriented to person, place, time. Cardiovascular: Capillary refill < 3 seconds Patient's skin is warm and dry. Edema pitting to left foot and right foot. Respiratory: Airway is patent Respiratory effort is even, unlabored, Respiratory pattern is regular, symmetrical. GI: No signs and/or symptoms were reported involving the gastrointestinal system. : No signs and/or symptoms were reported regarding the genitourinary system. EENT: No signs and/or symptoms were reported regarding the EENT system. Derm: Skin is intact, is healthy with good turgor, Skin temperature is warm. Musculoskeletal: Capillary refill < 3 seconds. 23:19 Reassessment: Patient appears in no apparent distress at this time. follow up to rr5 provider for review. 23:35 Reassessment: Patient appears in no apparent distress at this time. Patient is alert, rr5 oriented x 3, equal unlabored respirations, skin warm/dry/pink. hospitalist at bedside. 08/25 00:30 Reassessment: awaiting for covid result, for admission. rr5 01:29 Reassessment: Patient and/or family updated on plan of care and expected duration. Pain ea level reassessed. Patient is alert, oriented x 3, equal unlabored respirations, skin warm/dry/pink. Report given to receiving nurse, pt left ED via wheelchair per ED nurse. Pt tolerating well. Vital Signs: 08/24 21:11 BP 117 / 57; Pulse 59; Resp 17 S; Temp 97.2(TE); Pulse Ox 100% on R/A; Weight 135.17 kg ca1 (R); Height 6 ft. 4 in. (193.04 cm) (R); Pain 0/10; 23:20 BP 115 / 62; Pulse 58; Resp 17; Pulse Ox 98% ; rr5 08/25 00:00 BP 131 / 60; Pulse 71; Resp 18; Pulse Ox 98% ; rr5 01:29 BP 108 / 59; Pulse 68; Resp 18; Pulse Ox 98% ; ea 08/24 21:11 Body Mass Index 36.27 (135.17 kg, 193.04 cm) ca1 ED Course: 08/24 21:04 Patient arrived in ED. am4 21:12 Triage completed. ca1 21:14 Arm band placed on right wrist. [facility] 21:18 Markel Ayers MD is Attending Physician. [facility] 21:37 Narendra Avalos, RN is Primary Nurse. rr5 21:48 XRAY Chest (1 view) In Process Unspecified. EDMS 21:48 Inserted saline lock: 20 gauge in right upper arm, using aseptic technique. Blood rr5 collected. 22:00 No provider procedures requiring assistance completed. EKG done, by ED staff, reviewed rr5 by Markel Ayers MD. 22:04 Patient has correct armband on for positive identification. Placed in gown. Bed in low rr5 position. Call light in reach. Side rails up X2. monitoring and evaluation advisor on. Pulse ox on. NIBP on. 23:52 Narendra Franks MD is Hospitalizing Provider. [facility] 08/25 01:30 Patient admitted, IV remains in place. ea Administered Medications: 00:00 Drug: Lasix (furosemide) 60 mg Route: IVP; Site: right upper arm; rr5 00:41 Follow up: Response: No adverse reaction rr5 Intake: 01:15 post lasix rr5 Output: 01:15 Urine: 450ml (Voided); Total: 450ml. rr5 01:15 post lasix rr5 Outcome: 08/24 23:53 Decision to Hospitalize by Provider. [facility] 08/25 01:28 Admitted to Med/surg accompanied by nurse, via wheelchair, with chart, Report called to ea Receiving nurse on second floor Condition: stable Instructed on the need for admit, Demonstrated understanding of instructions. 01:30 Patient left the ED. ea Signatures: Dispatcher [employer] EDNY Jud Simpson RN RN ea Roque, Raymond, RN RN rr5 Eden Pritchard RN RN ca1 Markel Ayers MD MD [facility] Jesi Han am4
[2020-08-25] MEDS ORDERED: FUROSEMIDE 20 MG/ 2ML VIAL ONE (00:14)
[2020-08-25] MEDS ORDERED: FUROSEMIDE 40 MG/4 ML VIAL ONE (00:15)
--- NOTE | 2020-08-25 00:52 | P.HP ---
Certification for Inpatient Patient admitted to: Inpatient With expected LOS: >2 Midnights Patient will require the following post-hospital care: None Practitioner: I am a practitioner with admitting privileges, knowledge of patient current condition, hospital course, and medical plan of care. Services: Services provided to patient in accordance with Admission requirements found in Title 42 Section 412.3 of the Code of Federal Regulations <Gerson Shannon - Last Filed: 08/25/20 00:46> Patient History Date of Service: 08/25/20 Reason for admission: NSTEMI, CHF, BURAK History of Present Illness: 85-year-old male with history of chronic diastolic congestive heart failure, CAD, hypertension, obesity, atrial fibrillation on chronic anticoagulation therapy, CKD 3 presents emergency department for lower extremity edema. Patient reports increasing swelling over the course of the last 1 week. Patient evaluated in the emergency department, labs significant for troponin 0.2 BNP 1028 creatinine 2.89 GFR 25, patient's baseline GFR around 40 BUN 41 hemoglobin 11.3 hematocrit 34, chest x-ray suggests mild volume overload pattern, EKG without acute changes. Patient with recent heart catheterization without intervention and recommendation for medical management on 06/12/2020. Patient taking Lasix 40 mg b.i.d. and metolazone 5 mg at home, patient does not strictly adhered to fluid restriction/sodium restricted diet, counseled on this. ED provider wishes to admit for further evaluation and management. - Past Medical/Surgical History Diabetic: No -: HTN -: CHF, diastolic dysfunction -: Atrial fibrillation on chronic anti coagulation therapy -: CAD with prior stents -: Pacemaker defibrillator -: GERD -: Neuropathy -: CKD 3 -: Pacemaker defibrillator -: Cardiac stents Psychosocial/ Personal History: Patient is lives at home. - Family History Father -: Other (see notes) Mother -: Heart disease Brother -: Heart disease Notes: 3 brothers - heart failure Sister -: Heart disease Notes: heart failure - Social History Smoking Status: Never smoker Alcohol use: No CD- Drugs: No Caffeine use: Yes <Gerson Shannon - Last Filed: 08/25/20 00:46> Date of Service: 08/25/20 <Narendra Franks - Last Filed: 08/25/20 15:04> Allergies sulfamethoxazole [From Bactrim] Allergy (Mild, Verified 01/28/17 06:26) Rash trimethoprim [From Bactrim] Allergy (Mild, Verified 01/28/17 06:26) Rash clopidogrel [From Plavix] Allergy (Verified 08/25/20 01:53) Nausea/Vomiting Sulfa (Sulfonamide Allergy (Uncoded 08/25/20 01:53) Nausea/Vomiting Home Medications: ALPRAZolam [Xanax*] 0.5 mg PO BID 08/25/20 Allopurinol 100 mg PO DAILY 08/25/20 Amiodarone HCl [Cordarone*] 200 mg PO BID 08/25/20 Aspirin 81 mg PO DAILY 08/25/20 Atorvastatin Calcium [Lipitor] 40 mg PO BEDTIME 08/25/20 Furosemide [Lasix*] 40 mg PO DAILY 08/25/20 Gabapentin 200 mg PO TID 08/25/20 Hydrocodone Bit/Acetaminophen [Hydrocodon-Acetaminophn 10-500] 1 tab PO Q6H PRN 08/25/20 Levothyroxine [Synthroid*] 1 tab PO 0630 08/25/20 Metoprolol Tartrate [Lopressor*] 25 mg PO BID 08/25/20 Potassium Oral Tab [Klor-Con 10 mEq Tab*] 20 meq PO DAILY 08/25/20 Rivaroxaban [Xarelto*] 15 mg PO DAILY 08/25/20 Zolpidem Tartrate [Ambien*] 5 mg PO BEDTIME PRN 08/25/20 calcitrioL [Rocaltrol] 1 tab PO SEECOM 08/25/20 Review of Systems 10-point ROS is otherwise unremarkable Respiratory: Shortness of Breath Cardiovascular: Edema, As per HPI <Gerson Shannon - Last Filed: 08/25/20 00:46> Physical Examination - Physical Exam General: Alert, In no apparent distress HEENT: Atraumatic, PERRLA, Mucous membr. moist/pink, EOMI, Sclerae nonicteric Neck: Supple, 2+ carotid pulse no bruit, No LAD, Without JVD or thyroid abnormality Respiratory: Clear to auscultation bilaterally, Normal air movement Cardiovascular: Regular rate/rhythm, Edema (2 to 3+ pitting edema bilateral lower extremities), Irregular heart rate/rhythm (AFib, rate controlled) Gastrointestinal: Normal bowel sounds, No tenderness Musculoskeletal: No tenderness Integumentary: No rashes Neurological: Normal speech, Normal strength at 5/5 x4 extr, Normal tone, Normal affect - Studies Laboratory Data (last 24 hrs) 08/24/20 21:48: PT 14.8 H, INR 1.28 08/24/20 21:48: WBC 4.40, Hgb 11.3 L, Hct 34.0 L, Plt Count 112 L 08/24/20 21:48: Sodium 138, Potassium 3.7, BUN 41 H, Creatinine 2.89 H, Glucose 98, Magnesium 2.0, Total Bilirubin 0.6, AST 19, ALT 19, Alkaline Phosphatase 54 <Gerson Shannon - Last Filed: 08/25/20 00:46> - Studies Laboratory Data (last 24 hrs) 08/24/20 21:48: PT 14.8 H, INR 1.28 08/24/20 21:48: WBC 4.40, Hgb 11.3 L, Hct 34.0 L, Plt Count 112 L 08/24/20 21:48: Sodium 138, Potassium 3.7, BUN 41 H, Creatinine 2.89 H, Glucose 98, Magnesium 2.0, Total Bilirubin 0.6, AST 19, ALT 19, Alkaline Phosphatase 54 <Narendra Franks - Last Filed: 08/25/20 15:04> Assessment and Plan - Plan Assessment NSTEMI likely related to demand ischemia and from underlying acute on chronic diastolic congestive heart failure BURAK superimposed on CKD 3 suspect CRS Atrial fibrillation on chronic anticoagulation therapy Chronic thrombocytopenia History of CAD Hypertension Hypothyroidism Morbid obesity Plan NSTEMI likely related to demand ischemia and from underlying acute on chronic diastolic congestive heart failure: Continue with 40 mg Lasix IV t.i.d., oral metolazone, cardiology consult in place. 1500 cc per day fluid restriction, daily weights. Trend troponins, monitor on telemetry, strict intake/output. Patient with recent heart catheterization in June 2020 with no intervention and recommendation for continuation of medical management. Most recent echocardiogram was in May 2020 and demonstrated normal left ventricular ejection fraction. DVT prophylaxis Lovenox 40 mg subcutaneous once daily. BURAK superimposed on CKD 3 suspect CRS: Continue as above, nephrology consulted. Atrial fibrillation on chronic anticoagulation therapy: Continue Eliquis 2.5 mg b.i.d., monitor on telemetry. Continue home medication p.o. amiodarone. Chronic thrombocytopenia: Platelet count around 110, stable. Patient states he has a formal diagnosis but could not tell me the name of the condition. History of CAD: Continue Eliquis, aspirin, statin. Hypertension: Continue home meds Hypothyroidism: Continue home meds Morbid obesity: Counseled on need for lifestyle changes. Discharge Plan: Home Plan to discharge in: 48 Hours - Advance Directives Does patient have a Living Will: No Does patient have a Durable POA for Healthcare: No - Code Status/Comfort Care Code Status Assessed: Yes (Full code) Critical Care: No Time Spent Managing Pts Care (In Minutes): 55 <Gerson Shannon - Last Filed: 08/25/20 00:46> - Plan Plan of care reviewed as noted above NSTEMI, acute on chronic diastolic CHF exacerbation BURAK on CKD 3, likely cardiorenal syndrome -Trend troponin, IV diuresis Recent cardiac catheterization with no focal stenosis Cardiology consulted <Narendra Franks - Last Filed: 08/25/20 15:04>
[2020-08-25 01:51] VITALS: BMI 38.5
[2020-08-25] MEDS ORDERED: FUROSEMIDE 40 MG/4 ML VIAL IV SCH (01:51)
[2020-08-25] MEDS ORDERED: ONDANSETRON 4 MG/2 ML VIAL IV PRN (01:51)
[2020-08-25] MEDS ORDERED: ZOLPIDEM TARTRATE 5 MG TABLET PO PRN (04:44)
[2020-08-25] MEDS ORDERED: HYDROCODONE/APAP 10/325 TAB PO PRN (04:44)
[2020-08-25 04:53] LABS: Urine Appearance CLEAR (Clear); Urine Bilirubin NEGATIVE (Negative); Urine Blood TRACE (Negative); Urine Color YELLOW (Yellow); Urine Glucose NEGATIVE (Negative); Urine Protein NEGATIVE (Negative); Urine Specific Gravity <=1.005 (1.005-1.030); Urine Urobilinogen 0.2 mg/dL (0.2-1.0)
[2020-08-25] MEDS: LEVOTHYROXINE SOD 0.05 MG TABLET PO SCH (05:32)
[2020-08-25 05:42] LABS: Urine Microscopic Reflex ORDER UMIC
[2020-08-25 06:00] LABS: Urine Bacteria 20-50 /HPF (NONE SEEN); Urine RBC NONE SEEN /HPF (NONE SEEN)
[2020-08-25 06:13] LABS: Absolute Lymphocytes (CBC) 1.3 K/uL (0.7-4.9); Basophils % 0.8 % (0-1.3); Lymphocytes % 29.6 % (15.3-44.8); MPV 8.9 fL (7.6-11.3); RBC Red Blood Cell Count 3.43 M/uL (4.33-5.43)
[2020-08-25 06:21] LABS: Albumin 2.9 g/dL (3.4-5.0); Bilirubin Total 0.6 mg/dL (0.2-1.0); Potassium 3.1 mmol/L (3.5-5.1); Protein, Total 7.6 g/dL (6.4-8.2); Troponin I 0.2 ng/mL (0.0-0.045)
[2020-08-25] MEDS ORDERED: LEVOTHYROXINE SOD 0.05 MG TABLET PO SCH (06:30)
[2020-08-25] MEDS: METOPROLOL TAR 25 MG TAB PO SCH ×2 (08:42→20:52)
[2020-08-25] MEDS: RIVAROXABAN 15 MG TABLET PO SCH (08:42)
[2020-08-25] MEDS: FUROSEMIDE 40 MG/4 ML VIAL IV SCH ×3 (08:42→20:54)
[2020-08-25] MEDS: ALPRAZOLAM 0.5 MG TABLET PO SCH ×2 (08:42→20:44)
[2020-08-25] MEDS: AMIODARONE HCL 200 MG TAB PO SCH ×2 (08:43→20:44)
[2020-08-25] MEDS: GABAPENTIN 100 MG CAP PO SCH ×3 (08:43→20:44)
[2020-08-25] MEDS: ASPIRIN EC 81 MG TAB PO SCH (08:43)
[2020-08-25] MEDS ORDERED: APIXABAN 2.5 MG TABLET PO SCH (09:00)
[2020-08-25] MEDS ORDERED: allopurinoL 100 MG TAB PO SCH ×2 (09:00)
[2020-08-25] MEDS ORDERED: METOLAZONE 5 MG TABLET PO SCH (09:00)
[2020-08-25] MEDS ORDERED: CALCITROL 0.25 MCG CAP PO SCH (11:00)
[2020-08-25] MEDS ORDERED: POTASSIUM CL SA 10 MEQ TAB PO ONE ×2 (12:00→21:00)
--- NOTE | 2020-08-25 15:10 | P.PN ---
Subjective Date of Service: 08/25/20 Chief Complaint: NSTEMI, CHF, BURAK Subjective: No new changes (no significant change since admission, reports slight improvement in edema) Review of Systems 10-point ROS is otherwise unremarkable Physical Examination - Vital Signs Temperature: 97.0 F Blood Pressure: 120/60 Pulse: 67 Respirations: 16 Pulse Ox (%): 96 - Studies Laboratory Data (last 24 hrs) 08/24/20 21:48: PT 14.8 H, INR 1.28 08/24/20 21:48: WBC 4.40, Hgb 11.3 L, Hct 34.0 L, Plt Count 112 L 08/24/20 21:48: Sodium 138, Potassium 3.7, BUN 41 H, Creatinine 2.89 H, Glucose 98, Magnesium 2.0, Total Bilirubin 0.6, AST 19, ALT 19, Alkaline Phosphatase 54 Assessment & Plan Physician Review Additional Text: Physical Exam General: Alert, In no apparent distress HEENT: Mucous membr. moist/pink, EOMI, Sclerae nonicteric Respiratory: Clear to auscultation bilaterally, Normal air movement Cardiovascular: irregularly irregular rhythm, rate controlled Gastrointestinal: soft, nontender, nondistended Ext: 2+ edema b/l lower extremities Neurological: Normal speech, Normal strength at 5/5 x4 extr, Normal affect Problem List NSTEMI likely related to demand ischemia and from underlying acute on chronic diastolic congestive heart failure BURAK superimposed on CKD 3 suspect CRS Atrial fibrillation on chronic anticoagulation therapy Chronic thrombocytopenia History of CAD Hypertension Hypothyroidism Morbid obesity -NSTEMi likely demand ischemia - pt had recent cardiac cath without focal stenosis -continue IV diuresis, 40mg lasix TID -trend trop, monitor tele -pt continues with intermittent chest pain, Cardiology consulted -TTE (05/30): normal EF -BURAK likely due to cardiorenal syndrome, nephrology consulted, continue diuresis continue home medications VTE: eliquis Code: full Dispo: anticipate dc home in ~24-48hrs Time Spent Managing Pts Care (In Minutes): 35
--- NOTE | 2020-08-25 15:47 | CON ---
Date of Consultation: 08/25/2020 Reason For Consultation: Acute on chronic renal insufficiency. History Of Present Illness: Mr. Suárez is well known to us from previous visits. He is an 85-year-ol d gentleman with history of chronic congestive heart failure, coronary artery disease, hypertension, obesity, and atrial fibrillation on chronic anticoagulation therapy, presented with complaints of low er extremity edema. He reports increasing swelling over the course of 1 week prior to admission. He was evaluated in the emergency room and labs were noted to have a slightly elevated troponin, decrea sed GFR, and he was admitted for further evaluation. He was recently admitted for an NSTEMI and had a recent heart catheterization without intervention and recommendation for medical management in [facility] 2020. He was taking Lasix 40 mg p.o. b.i.d. and also metolazone at home. Denies any NSAID use. Past Medical History: Significant for history of hypertension, chronic diastolic heart failure, atri al fibrillation, coronary artery disease with prior stent, pacemaker placement, history of cardiorena l syndrome. Social History: He lives at home. Denies any history of smoking or alcohol use. Family History: Noncontributory. Review of Systems: Positive for swelling in bilateral lower extremities. Denies any shortness of breath. Denies any ch est pain. All other review of systems are negative. Physical Examination: Vital Signs: At this time are showing temperature of 97, pulse rate of 67, respiratory rate of 16, a nd blood pressure 120/60. General: He is a morbidly obese male, in no acute distress. HEENT: Shows atraumatic head. Lungs: Clear to auscultation with no JVD. Heart: Auscultation of the heart revealed irregular rate and rhythm. Abdomen: Soft and nontender. Extremities: Showed bilateral lower extremity edema, slightly worse on the right side compared to th e left side. Current Medications: Include allopurinol 50 mg every 48 hours, Xanax 0.5 mg b.i.d., amiodarone 200 m g b.i.d., aspirin, atorvastatin, calcitriol, Lasix 40 mg IV t.i.d., levothyroxine, metoprolol, potass ium 1 time dose was given, Xarelto, and Ambien. Laboratory Data: At this time are showing creatinine of 2.7, sodium of 141, and potassium of 3.1, ch loride of 104. CBC results are showing stable hemoglobin, hematocrit, and platelet count. Impression: 1.Cardiorenal syndrome with acute on chronic renal insufficiency secondary to chronic diastolic hear t failure and use of diuretics with Lasix and metolazone. At this time, he is hypokalemic, but other velásquez okay. We will continue with the Lasix and monitor. He may benefit from addition of spironolact one. 2.Hypokalemia. Continue to replete and monitor potassium. 3.Acute on chronic diastolic heart failure. The patient does not seem to have significant pulmonary edema at this time. His edema mostly seems to be all peripheral edema. We will continue to monitor . 4.Atrial fibrillation, rate controlled. Continue amiodarone and Xarelto for anticoagulation. Plan: Overall, the patient's renal function is slightly worse than his baseline renal function, like ly secondary to over diuresis. Continue with Lasix secondary to lower extremity edema, avoid metolaz one, and consider adding spironolactone, and monitor renal function closely. VV/MODL Voice ID: [id number] Report ID: [id number]
--- NOTE | 2020-08-25 18:29 | CON ---
Date of Consultation: 08/25/2020 Reason For Consultation: Lower extremity edema. History Of Present Illness: An 85-year-old male with history of chronic diastolic heart failure, no coronary artery disease by recent cath, hypertension, obesity, atrial fibrillation on anticoagulation , chronic kidney disease, presented with lower extremity edema. Denies having shortness of breath. No chest pain. Started on IV Lasix and his edema is significantly better. Past Medical History: As outlined above in HPI. Medications: Refer to reconciliation sheet for detailed list. Allergies: BACTRIM. Family History: No premature coronary artery disease or cancer. Social History: Does not smoke or drink. Does not use any drugs. Review of Systems: All systems reviewed and they were negative except what is mentioned in the HPI. Physical Examination: Vital Signs: Temperature is 97.0, pulse 67, breathing at 16, blood pressure 120/60, saturating 96%. General: Pleasant elderly male, in no apparent distress. Head and Neck: Pupils are equal, reactive to light. Intact eye movements. No JVD. No cervical lym phadenopathy. Neck: Supple. Thyroid is not enlarged. Lungs: Clear to auscultation bilaterally. No rhonchi, rales, or crackles. No accessory muscle use. Heart: Irregular. No extra sounds. Abdomen: Soft, nontender. Bowel sounds positive. No organomegaly. No masses or hernia. No rigidi ty or rebound. Extremities: 2+ pitting edema. No clubbing, or cyanosis. Intact pulses. Skin: No rash noted. Neurologic: Alert, awake, oriented x3. No acute focal deficits appreciated. Lymph Nodes: No cervical or axillary lymphadenopathy. Investigations: Creatinine 2.72. Troponin is 0.2 x2. Hemoglobin 11.3. INR is 0.28. Assessment And Recommendations: 1.Acute on chronic diastolic heart failure. The patient is known to have a normal ejection fraction with echo done in end of May this year. Had left heart catheterization on June 2020 with no significant disease. Agree with Lasix, increase the dose to 80 mg IV q.12 hours. Monitor BUN, crea tinine, electrolytes. 2.Troponin leak. This is likely demand ischemia from the congestive heart failure. The patient had a recent heart catheterization on by Dr. Bloom and no significant disease. No further workup is n eeded on this regard. 3.Chronic atrial fibrillation with high CHADS-VASc score, chronic kidney disease, and chronic anemia . The patient is a candidate for left atrial appendage closure. SR/MODL Voice ID: [id number] Report ID: [id number]
[2020-08-25] MEDS ORDERED: ATORVASTATIN 40 MG TAB PO SCH (21:00)
[2020-08-26] MEDS: LEVOTHYROXINE SOD 0.05 MG TABLET PO SCH (05:33)
[2020-08-26 06:20] LABS: Absolute Lymphocytes (CBC) 1.1 K/uL (0.7-4.9); Basophils % 1.5 % (0-1.3); Hematocrit 35.8 % (39.6-49.0); Lymphocytes % 25.4 % (15.3-44.8); MPV 9.1 fL (7.6-11.3); RBC Red Blood Cell Count 3.59 M/uL (4.33-5.43)
[2020-08-26 07:48] LABS: Albumin 2.9 g/dL (3.4-5.0); Bilirubin Total 0.5 mg/dL (0.2-1.0); Magnesium 2.2 mg/dL (1.8-2.4); Potassium 3.8 mmol/L (3.5-5.1); Protein, Total 7.6 g/dL (6.4-8.2)
[2020-08-26] MEDS ORDERED: POTASSIUM CL SA 10 MEQ TAB PO ONE (09:00)
[2020-08-26] MEDS: FUROSEMIDE 40 MG/4 ML VIAL IV SCH ×2 (09:14→13:45)
[2020-08-26] MEDS: ALPRAZOLAM 0.5 MG TABLET PO SCH (09:15)
[2020-08-26] MEDS: ASPIRIN EC 81 MG TAB PO SCH (09:15)
[2020-08-26] MEDS: RIVAROXABAN 15 MG TABLET PO SCH (09:15)
[2020-08-26] MEDS: GABAPENTIN 100 MG CAP PO SCH ×2 (09:16→13:46)
[2020-08-26] MEDS: METOPROLOL TAR 25 MG TAB PO SCH (09:16)
[2020-08-26] MEDS: AMIODARONE HCL 200 MG TAB PO SCH (09:16)
[2020-08-26 11:27] VITALS: O2SAT 94
--- NOTE | 2020-08-26 11:58 | RAD REPORT ---
EXAM DESCRIPTION: Reina Single View08/24/2020 9:49 pm CLINICAL HISTORY: 5 years Male, SWELLING COMPARISON: Chest radiograph dated August 08, 2020 FINDINGS/IMPRESSION: No focal lung consolidation. No pleural effusion. No pneumothorax. Unchanged prior left chest pacemaker. Cardiomegaly and worsened vascular congestion/interstitial edema, No acute osseous abnormality. Electronically signed by: Perry Alexandre DO 08/24/2020 10:44 PM CDT Due to temporary technical issues with the PACS/Fluency reporting system, reports are being signed by the in house radiologist without review as a courtesy to ensure prompt reporting. The interpreting r adiologist is fully responsible for the content of the report.
[2020-08-26 12:00] LABS: Urine Blood NEGATIVE (Negative); Urine Glucose NEGATIVE (Negative); Urine Protein NEGATIVE (Negative); Urine pH 6.5 (5.0-7.0)
--- NOTE | 2020-08-26 14:38 | P.DS ---
Admission Date: 08/25/20 Discharge Date: 08/26/20 Disposition: ROUTINE DISCHARGE Discharge Condition: GOOD Reason for Admission: NSTEMI, CHF, BURAK Consultations: Nephrology - Dr. Pa Procedures: CXR (08/24): No focal lung consolidation. No pleural effusion. No pneumothorax. Unchanged prior left chest pacemaker. Cardiomegaly and worsened vascular congestion/interstitial edema, Problem List NSTEMI due to demand ischemia and from underlying acute on chronic diastolic congestive heart failure BURAK superimposed on CKD 3; suspect cardiorenal syndrome Atrial fibrillation on chronic anticoagulation therapy Chronic thrombocytopenia History of CAD Hypertension Hypothyroidism Morbid obesity Brief History of Present Illness: 85-year-old male with history of chronic diastolic congestive heart failure, CAD, hypertension, obesity, atrial fibrillation on chronic anticoagulation therapy, CKD 3 presents emergency department for lower extremity edema. Patient reports increasing swelling over the course of the last 1 week. Patient evaluated in the emergency department, labs significant for troponin 0.2 BNP 1028 creatinine 2.89 GFR 25, patient's baseline GFR around 40 BUN 41 hemoglobin 11.3 hematocrit 34, chest x-ray suggests mild volume overload pattern, EKG without acute changes. Patient with recent heart catheterization without intervention and recommendation for medical management on 06/12/2020. Patient taking Lasix 40 mg b.i.d. and metolazone 5 mg at home, patient does not strictly adhered to fluid restriction/sodium restricted diet, counseled on this. ED provider wishes to admit for further evaluation and management. Hospital Course: Patient responded well to IV diuresis. Cardiology was consulted and agreed that mild elevation in troponin was unlikely to be due to ACS. Nephrology was consulted due to patient's BURAK. His renal function improved with IV diuresis. On day of discharge, patient was feeling much better and he was discharged home. Vital Signs/Physical Exam: Physical Exam General: Alert, In no apparent distress HEENT: Mucous membr. moist/pink, EOMI, Sclerae nonicteric Respiratory: Clear to auscultation bilaterally, Normal air movement Cardiovascular: irregularly irregular rhythm, rate controlled Gastrointestinal: soft, nontender, nondistended Ext: 1-2+ edema b/l lower extremities Neurological: Normal speech, Normal strength at 5/5 x4 extr, Normal affect Temp Pulse Resp BP Pulse Ox 97.3 F 69 17 115/57 L 97 08/26/20 12:00 08/26/20 13:45 08/26/20 12:00 08/26/20 13:45 08/26/20 12:00 Laboratory Data at Discharge: WBC 4.30 K/uL (4.3-10.9) 08/26/20 05:57 Hgb 11.7 g/dL (13.6-17.9) L 08/26/20 05:57 Hct 35.8 % (39.6-49.0) L 08/26/20 05:57 Plt Count 111 K/uL (152-406) L 08/26/20 05:57 PT 14.8 SECONDS (9.5-12.5) H 08/24/20 21:48 INR 1.28 08/24/20 21:48 Sodium 143 mmol/L (136-145) 08/26/20 06:54 Potassium 3.8 mmol/L (3.5-5.1) 08/26/20 06:54 BUN 41 mg/dL (7-18) H 08/26/20 06:54 Creatinine 2.61 mg/dL (0.55-1.3) H 08/26/20 06:54 Glucose 97 mg/dL (74-106) 08/26/20 06:54 Magnesium 2.2 mg/dL (1.8-2.4) 08/26/20 06:54 Total Bilirubin 0.5 mg/dL (0.2-1.0) 08/26/20 06:54 AST 18 U/L (15-37) 08/26/20 06:54 ALT 17 U/L (12-78) 08/26/20 06:54 Alkaline Phosphatase 51 U/L (45-117) 08/26/20 06:54 Troponin I 0.21 ng/mL (0.0-0.045) H 08/25/20 22:49 Triglycerides 67 mg/dL (<150) 08/25/20 05:40 Cholesterol 117 mg/dL (<200) 08/25/20 05:40 HDL Cholesterol 66 mg/dL (40-60) H 08/25/20 05:40 Cholesterol/HDL Ratio 1.77 08/25/20 05:40 Home Medications: ALPRAZolam [Xanax*] 0.5 mg PO BID 08/25/20 Allopurinol 100 mg PO DAILY 08/25/20 Amiodarone HCl [Cordarone*] 200 mg PO BID 08/25/20 Aspirin 81 mg PO DAILY 08/25/20 Atorvastatin Calcium [Lipitor] 40 mg PO BEDTIME 08/25/20 Gabapentin 200 mg PO TID 08/25/20 Hydrocodone Bit/Acetaminophen [Hydrocodon-Acetaminophn 10-500] 1 tab PO Q6H PRN 08/25/20 Levothyroxine [Synthroid*] 1 tab PO 0630 08/25/20 Metoprolol Tartrate [Lopressor*] 25 mg PO BID 08/25/20 Potassium Oral Tab [Klor-Con 10 mEq Tab*] 20 meq PO DAILY 08/25/20 Rivaroxaban [Xarelto*] 15 mg PO DAILY 08/25/20 Zolpidem Tartrate [Ambien*] 5 mg PO BEDTIME PRN 08/25/20 calcitrioL [Rocaltrol] 1 tab PO SEECOM 08/25/20 Amiloride HCl [Midamor*] 10 mg PO DAILY 30 Days #60 tablet 08/26/20 Furosemide [Lasix*] 40 mg PO BIDL 30 Days #60 tab 08/26/20 New Medications: Furosemide [Lasix*] 40 mg PO BIDL 30 Days #60 tab Amiloride HCl [Midamor*] 10 mg PO DAILY 30 Days #60 tablet Followup: Alfonzo Pa DO [ACTIVE - CAN ADMIT] - OOT,OOT [Primary Care Provider] - Time spent managing pt's care (in minutes): 35
[2020-08-26] MEDS ORDERED: AMILORIDE HCL 5 MG TABLET PO SCH (15:00)
[2020-08-26] MEDS ORDERED: FUROSEMIDE 40 MG TABLET PO SCH (17:00)
[2020-08-26 17:09] VITALS: BP 96/59; TEMP 97.7
--- NOTE | 2020-08-26 20:18 | P.PN ---
Date of Service: 08/26/20 Vital Signs Temp Pulse Resp BP Pulse Ox 97.7 F 74 18 96/59 L 97 08/26/20 16:00 08/26/20 16:00 08/26/20 16:00 08/26/20 16:00 08/26/20 16:00 Assessment/ Plan: Nephrology No acute cardiac or pulmonary complaints. No CP or SOB. +BHATT LE Edema improving. No acute events overnight. Vitals, medications, blood work and imaging reviewed in the chart. NAD. MMM. Neck supple. CTA. RRR. Soft Abd. No C/C. LE Edema 1+. No rash. AAO. Normal Speech. A/P: Continue the current POC and Medications other than the changes listed. AM Labs PRN. Recommend daily weight. Please see the orders for complete details. BURAK likely CRS -Continue diuretic therapy Hypokalemia -Replete oral potassium Hypocalcemia -Continue Calcitriol Diastolic CHF, A/C -Continue Lasix -Start Amiloride Primary Gout -Continue Allopurinol
--- NOTE | 2020-08-27 12:18 | EKG ---
Test Date: 2020-08-25 Test Time: 10:30:45 Dispute Resolution Specialist: MONET Denny MEASUREMENT RESULTS: Intervals: Rate: 79 [place]: QRSD: 142 QT: 476 QTc: 545 [place]: P: [place]: QRS: -76 T: 101 INTERPRETIVE STATEMENTS: Electronic atrial pacemaker Left axis deviation Left ventricular hypertrophy with QRS widening Inferior infarct, age undetermined Anterolateral infarct, age undetermined Abnormal ECG Compared to ECG 08/24/2020 21:48:24 Myocardial infarct finding now present Ventricular-paced complex(es) or rhythm no longer present Right bundle-branch block no longer present Early repolarization no longer present Electronically Signed On 08-27-20 12:13:42 CDT by Pierce Bloom
[2020-08-27 14:48] LABS: Urine Blood Negative (Negative); Urine Glucose Negative (Negative); Urine Protein Negative (Negative); Urine pH 6.5 (5.0-7.0)
== END 2020-08-26 15:53 | disposition home or self-care (01) | DRG 280 ==
LOC: ER 21:01 → ERHOLD 08-25 00:11 → 2ND 08-25 01:15
PROVIDERS: ADMIT Hospitalist; ATTEND Hospitalist
DX: I13.0 Hypertensive heart and chronic kidney disease with heart failure and stage 1 through stage 4 chronic kidney disease, or unspecified chronic kidney disease (principal); I50.33 Acute on chronic diastolic (congestive) heart failure; I21.A1 Myocardial infarction type 2; N17.9 Acute kidney failure, unspecified; I48.20 Chronic atrial fibrillation, unspecified; N18.30 Chronic kidney disease, stage 3 unspecified; E11.22 Type 2 diabetes mellitus with diabetic chronic kidney disease; I25.10 Atherosclerotic heart disease of native coronary artery without angina pectoris; E03.9 Hypothyroidism, unspecified; K21.9 Gastro-esophageal reflux disease without esophagitis; D69.6 Thrombocytopenia, unspecified; E66.01 Morbid (severe) obesity due to excess calories; E78.5 Hyperlipidemia, unspecified; E87.6 Hypokalemia; E83.51 Hypocalcemia; M10.00 Idiopathic gout, unspecified site; I25.2 Old myocardial infarction; Z88.1 Allergy status to other antibiotic agents; Z68.38 Body mass index [BMI] 38.0-38.9, adult; Z88.5 Allergy status to narcotic agent; Z88.8 Allergy status to other drugs, medicaments and biological substances; Z86.73 Personal history of transient ischemic attack (TIA), and cerebral infarction without residual deficits; Z95.5 Presence of coronary angioplasty implant and graft; Z95.810 Presence of automatic (implantable) cardiac defibrillator; Z79.890 Hormone replacement therapy; Z79.82 Long term (current) use of aspirin; Z79.899 Other long term (current) drug therapy; Z20.822 Contact with and (suspected) exposure to COVID-19
CPT/HCPCS: 36415; 71045; 80048; 80053; 80061; 80076; 81003; 81015; 83735; 83880; 84132; 84484; 85025; 85610; 87077; 87086; 87088; 87186; 93005; 96374; 99285; J1940; U0003